=== PATIENT | male | born 1955 | race Caucasian/White ===

== ENCOUNTER 2023-04-16 11:39 | Outpatient (OUT) | payer MEDICARE, SELFPAY ==
--- NOTE | 2023-04-16 11:50 | XR_ITS ---
[address] [address] Patient Name: GEGE SEYMOUR MRN: [id number] date: 1955 Sex: M Assigned Patient Location: [facility] Current Patient Location: [facility] Accession/Order Number: [id number] Exam Date: 04/16/2023 11:53 Report Date: 04/16/2023 12:51 At the request of: LEANNA CAMPO Procedure: XR lumbar spine 2-3V EXAM: XR lumbar spine 2-3V HISTORY: Lumbar Spondylosis M47.816 COMPARISON: None. TECHNIQUE: 3 views FINDINGS: Satisfactory alignment. Maintained vertebral body heights and disc spaces. Mild multilevel endplate degenerative changes, disc disease and facet arthropathy of L4-S1. Scattered calcified atherosclerotic disease of aorta. XR/XR lumbar spine 2-3V IMPRESSION: No acute fracture or subluxation. Electronically authenticated by: JAIR SERRATO Date: 04/16/2023 12:51
== END 2023-04-16 11:40 | disposition home or self-care (01) ==
LOC: RAD 11:43
PROVIDERS: PCP Family Medicine; Visit Provider Family Medicine
DX: M47.816 Spondylosis without myelopathy or radiculopathy, lumbar region (principal)
CPT/HCPCS: 72100

== ENCOUNTER 2023-04-18 08:05 | Outpatient (RCR) | payer MEDICARE, SELFPAY | END 2023-05-09 16:02 | disposition home or self-care (01) | LOC: PT 08:05 | PROVIDERS: PCP Family Medicine; Visit Provider Family Medicine | DX: M47.816 Spondylosis without myelopathy or radiculopathy, lumbar region (principal) | CPT/HCPCS: 97110; 97112; 97140; 97162 ==

== ENCOUNTER 2023-04-23 07:52 | Outpatient (OUT) | payer MEDICARE, SELFPAY ==
[2023-04-23 08:29] LABS: Basophils Absolute Auto 0.1 10^3/uL (0.0-0.1); Basophils Percent Auto 1.2 % (0.2-2.0); Eosinophils Absolute Auto 0.3 10^3/uL (0.0-0.7); Eosinophils Percent Auto 4.1 % (0.9-7.0); Hematocrit 43.3 % (42.0-54.0); Hemoglobin 14.7 g/dL (14.0-18.0); Immature Granulocytes Abs Auto 0.03 10^3/uL (0.00-0.03); Immature Granulocytes Pct Auto 0.4 % (0.0-0.5); Lymphocytes Absolute Auto 1.4 10^3/uL (1.2-3.8); Lymphocytes Percent Auto 17.3 % (20.5-60.0); Mean Corpuscular HGB Conc 33.9 g/dL (29.9-35.2); Mean Corpuscular Hemoglobin 30.7 pg (25.9-34.0); Mean Corpuscular Volume 90.4 fL (80.0-94.0); Mean Platelet Volume 9.6 fL (9.5-13.5); Monocytes Absolute Auto 0.6 10^3/uL (0.3-0.8); Monocytes Percent Auto 7.3 % (1.7-12.0); Neutrophils Absolute Auto 5.8 10^3/uL (1.4-6.5); Neutrophils Percent Auto 69.7 % (43.0-75.0); Platelet Count 146 10^3/uL (150-450); Red Blood Count 4.79 10^6/uL (4.70-6.10); Red Cell Distribution Width 13.1 % (11.0-15.0); White Blood Count 8.3 10^3/uL (4.0-11.0)
[2023-04-23 09:07] LABS: Alanine Aminotransferase 36 U/L (16-63); Albumin Globulin Ratio 1.1; Albumin Level 3.9 g/dL (3.4-5.0); Alkaline Phosphatase 91 U/L (46-116); Anion Gap 16.6; Aspartate Amino Transferase 26 U/L (15-37); BUN Creatinine Ratio 32.2; Bilirubin Direct 0.1 mg/dL (0.0-0.2); Bilirubin Total 0.6 mg/dL (0.2-1.0); Carbon Dioxide 24.2 mmol/L (21.0-32.0); Chloride 98 mmol/L (98-107); Chol HDL Ratio 4.7; Cholesterol 173 mg/dL (<=200); Estimated GFR (African America 56 (>=60); Estimated GFR (Non-African Ame 46 (>=60); Globulin 3.6 g/dL; Glucose 220 mg/dL (74-106); HDL Cholesterol 37 mg/dL (40-60); Potassium 4.8 mmol/L (3.5-5.1); Sodium 134 mmol/L (136-145); Total Protein 7.5 g/dL (6.4-8.2); Triglycerides 243 mg/dL (<=150); VLDL CHOLESTEROL 48.6 mg/dL
[2023-04-24 05:09] LABS: HBsAg Screen Negative (Negative); HCV Antibody Non Reactive (Non Reactive); HIV Ab/p24 Ag Screen Non Reactive (Non Reactive)
[2023-04-24 12:08] LABS: Rapid Plasma Reagin, Quant Non Reactive titer (NonRea<1:1)
[2023-04-25 09:09] LABS: QuantiFERON-TB Gold Plus Negative (Negative)
== END 2023-04-23 07:53 | disposition home or self-care (01) ==
PROVIDERS: PCP Family Medicine; Visit Provider Dermatology
DX: L30.9 Dermatitis, unspecified (principal)
CPT/HCPCS: 36415; 80048; 80061; 80076; 85025; 86480; 86592; 86780; 86803; 87340; 87389

== ENCOUNTER 2023-07-10 14:09 | Outpatient (OUT) | payer MEDICARE, SELFPAY ==
--- OUTSIDE RECORDS SUMMARY | 2023-07-10 14:15 | XMS_ITS | CCD ---
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 Name Role Phone DANK CAMPO Primary Care Physician MD Dank Campo Primary Care Provider MD Kike Bernal Attending Provider Asaad, Imad Unavailable FERNANDO ., MR FERNANDEZ Admitting Unavailable NADEREGraciela, DR DANK Leon Primary Care Unavailable FERNANDO ., MR REBECCA Attending Unavailable FERNANDO ., MR REBECCA Consulting Unavailable NICOLA ., DR WINKLER Consulting Unavailable NICOLA ., DR WINKLER Admitting Unavailable NADERER, DR DANK Leon Primary Care Unavailable HULL ., DR WINKLER Attending Unavailable NADERER, DR DANK Leon Primary Care Unavailable ASAAD, IMAD Admitting Unavailable ASAAD, IMAD Attending Unavailable ASAAD, IMAD Consulting Unavailable NADERER, DR DANK Leon Primary Care Unavailable NADERER, DR DANK Leon Admitting Unavailable NADERER, DR DANK Leon Attending Unavailable NADERER, DR DANK Leon Consulting Unavailable ASAAD, IMAD Admitting Unavailable NADERER, DR DANK Leon Primary Care Unavailable ASAAD, IMAD Attending Unavailable ASAAD, IMAD Consulting Unavailable NADERER, DR DANK Leon Primary Care Unavailable NADERER, DR DANK Leon Admitting Unavailable NADERER, DR DANK Leon Attending Unavailable NADERER, DR DANK Leon Admitting Unavailable NADERER, DR DANK Leon Attending Unavailable NADERER, DR DANK Leon Consulting Unavailable NADERER, DR DANK Leon Primary Care Unavailable [place], DR SORIN Rodarte Consulting Unavailable NADERER, DR DANK Leon Admitting Unavailable NADERER, DR DANK Leon Attending Unavailable NADERER, DR DANK Leon Primary Care Unavailable NADERER, DR DANK Leon Consulting Unavailable Mikie HULL Attending Unavailable ROSALVA MURO Attending Unavailable ROSALVA MURO Attending Unavailable DEJUAN HULL Attending Unavailable ROSALVA MURO Admitting Unavailable ROSALVA MURO Attending Unavailable ROSALVA MURO Admitting Unavailable ROSALVA MURO Attending Unavailable Mikie HULL Attending Unavailable MD Dank Campo Primary Care Provider MD Kike Bernal Attending Provider DEXTER NI Attending Unavailable MAGDA ROSS Attending Unavailable DEXTER NI Attending Unavailable EDD HOLDEN Attending Unavailable EDD HOLDEN Attending Unavailable EDD HOLDEN Referring Unavailable DANK CAMPO Attending Unavailable Dank Campo Primary Care Unavailable Asaad, Imad Admitting Unavailable Asaad, Kike Attending Unavailable Dank Campo Primary Care Unavailable Asaad, Imad Admitting Unavailable Asaad, Kike Attending Unavailable Dank Campo Primary Care Unavailable Dank Campo Attending Unavailable Dank Campo Admitting Unavailable MD Dank Campo Attending Provider Allergies Allergy Classification Reported Allergen(s) Allergy Type Date of Onset Reaction(s) Facility (1 source) No Known Medication Allergies; 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: [No Known Medication Allergies] Propensity to adverse reactions (disorder) [facility] Repository Medications Current Medications Medication Drug Class(es) Dates Sig (Normalized) Sig (Original) aspirin 81 mg delayed release oral tablet (7 sources) Platelet Aggregation Inhibitor, Nonsteroidal Anti-inflammatory Drug Start: 01-30-2019 take 1 tablet by mouth once daily Aspirin (Aspir-81) 81 mg Tablet,Delayed Release (Dr/Ec) Active 81 MG PO Daily January 29, 2019 11:00pm Baclofen (12 sources) gamma-Aminobutyric Acid-ergic Agonist Start: 03-31-2019 baclofen Oral, TID, Refills(s) 0 Start Date: 03/31/19 Status: Ordered Start: 01-30-2019 take 20 mg by mouth three times daily Baclofen Active 20 MG PO Three times daily January 29, 2019 11:00pm celecoxib (12 sources) Nonsteroidal Anti-inflammatory Drug Start: 03-31-2019 celecoxib Oral, Refills(s) 0 Start Date: 03/31/19 Status: Ordered Start: 01-30-2019 take 200 mg by mouth twice miguel ly Celecoxib Active 200 MG PO Twice daily January 29, 2019 11:00pm fluticasone 0.05 mg/inh Nasal [place] (3 sources) Start: 07-28-2019 fluticasone 0. 05 mg/inh Nasal [place] Nasal, Daily, Refill(s) 0 Start Date: 07/28/19 Status: Ordered furosemide 40 mg oral tablet (3 sources) Loop Diuretic Start: 04-27-2023 take 40 mg by mouth once daily Furosemide Active 40 MG PO Daily April 27, 2023 12:00am Furosemide Activ e 3 ml insulin glargine 100 unt/ml pen injector (2 sources) Insulin Analog Start: 04-27-2023 Insulin Glargi ne (Lantus Solostar U-100 Insulin) 100 unit/mL (3 mL) Insulin Pen Active 60 UNIT SUBCUT Every evening April 27, 2023 12:00am Insulin Lispro (3 sources) Insulin Analog Start: 04-27-2023 inject 1 dose by subcutaneous injection once before mealtime Insulin Lispro Active 1 sliding scale dose SUBCUT 3x/Day before meals April 27, 2023 12:00am HumaLOG Active Insulin Lispro KwikPen 100 units/mL injectable solution (1 source) Start: 02-12-2023 Insulin Lispro KwikPen 100 units/mL injectable solution Refills(s) 0 Start Date: 02/12/23 Status: Ordered lansoprazole (12 sources) Proton Pump Inhibitor Start: 03-31-2019 lansoprazole Oral, Daily, Refills(s) 0 Start Date: 03/31/19 Status: Ordered Start: 01-30-2019 take 30 mg by mouth twice daily Lansoprazole Active 30 MG PO Twice daily January 29, 2019 11:00pm Start: 01-30-2019 take 30 mg by mouth once daily Lansoprazole Active 30 MG PO Daily January 29, 2019 11:00pm Lisinopril (12 sources) Angiotensin Converting Enzyme Inhibitor Start: 03-31-2019 lisinopril Oral, Miguel ly, Refills(s) 0 Start Date: 03/31/19 Status: Ordered Start: 01-30-2019 take 10 mg by mouth once daily Lisinopril Active 10 MG PO Daily January 29, 2019 11:00pm take 1 tablet by maciej th every twelve hours Lisinopril 10 MG 1 tablet Orally BID for 30 day(s) Active loperamide hydrochloride 2 mg oral capsule (7 sources) Opioid Agonist Start: 04-27-2023 take 2 mg by mouth every two hours Loperamide Active 2 MG PO Q2H April 27, 2023 12:00am Start: 12-10-2019 take 1 capsule by mo uth twice daily Loperamide HCl 2 MG 1 CAPSULE Orally twice daily for 30 days Nov, Active Magnesium (3 sources) Start: 01-30-2019 take 400 mg by mouth once daily Magnesium Active 400 MG PO Daily January 29, 2019 11:00pm metFORMIN (11 sources) Biguanide Start: 03-31-2019 metformin Oral , Refills(s) 0 Start Date: 03/31/19 Status: Ordered Start: 01-30-2019 End: 04-27-2023 take 850 mg by mouth three times daily Metformin Discontinued 850 MG PO Three times daily January 29, 2019 11:00pm April 27, 2023 10:34am 24 hr metoprolol succinate 25 mg extended release oral tablet (12 sources) beta-Adrenergic Nirav Start: 03-31-2019 take 1 mg by mouth once daily metoprolol 25 mg ER Tab mg tab(s), Oral, Daily, Refills(s) 0 Start Date: 03/31/19 Status: Ordered Start: 01-30-2019 take 50 mg by mouth once daily Metoprolol Succinate Active 50 MG PO Daily January 29, 2019 11:00pm take 1 tablet by maciej every twenty-four hours Metoprolol Succinate ER 50 MG 1 tablet Orally Once a day Active oxaprozin 600 mg oral tablet (2 sources) Nonsteroidal Anti-inflammatory Drug Start: 04-27-2023 take 600 mg by mouth four times daily Oxaprozin Active 600 MG PO Four times daily April 27, 2023 12:00am potassium chloride 20 meq oral tablet (1 source) Start: 02-12-2023 Potassium Chloride (Eqv-K-Tab) 20 mEq oral tablet, extended release Refills(s) 0 Start Date: 02/12/23 Status: Ordered semaglutide 14 mg oral tablet (3 sources) Start: 07-24-2022 take 1 tablet by mouth once daily Semaglutide (Rybelsus) 14 mg tablet Active 14 MG PO Daily July 24, 2022 12:00am Simvastatin (12 sources) HMG-CoA Reductase Inhibitor Start: 03-31-2019 simvastatin Oral, Refills(s) 0 Start Date: 03/31/19 Status: Ordered Start: 01-30-2019 take 40 mg by mouth once daily in the evening Simvastatin Active 40 MG PO Every evening January 29, 2019 11:00pm spironolactone 50 mg oral tablet (2 sources) Aldosterone Antagonist Start: 04-27-2023 take 50 mg by mouth once daily Spironolactone Active 50 MG PO Daily April 27, 2023 12:00am Completed/Discontinued Medications Medication Drug Class(es) Dates Sig (Normalized) Sig (Original) clindamycin 300 mg oral capsule (5 sources) Lincosamide Antibacterial Start: 01-28-2021 take 2 capsules by mouth every twelve hours Clindamycin HCl 300 MG 2 capsules Orally bid for 10 day(s) Jan, Not-Taking dibucaine 0.01 mg/mg rectal ointment (3 sources) Standardized Chemical Allergen Start: 12-08-2020 End: 03-14-2021 Dibucaine Discontinued 1 APPLIC OR Four times daily 56 December 07, 2020 11:00pm March 14, 2021 11:08am dicyclomine hydrochloride 20 mg oral tablet (3 sources) Anticholinergic Start: 02-11-2020 End: 12-08-2020 take 20 mg by mouth three times daily Dicyclomine Discontinued 20 MG PO Three times daily February 10, 2020 11:00pm December 08, 2020 8:09am docusate sodium 100 mg oral capsule (3 sources) Start: 12-08-2020 End: 03-14-2021 take 1 capsule by mouth once daily Docusate Sodium (Sof-Lax) 100 mg capsule Discontinued 100 MG PO Daily 60 December 08, 2020 9:33am March 14, 2021 11:08am fluticasone propionate 0.05 mg/actuat metered dose nasal spray (9 sources) Corticosteroid Start: 02-11-2020 End: 07-24-2022 Fluticasone Propionate (Flonase Allergy Relief) 50 mcg/actuation [place],Suspension Discontinued 1 SPRAY INTRANASAL Daily February 10, 2020 11:00pm July 24, 2022 12:24pm Start: 07-28-2019 fluticasone 0. 05 mg/inh Nasal [place] Nasal, Daily, Refill(s) 0 Start Date: 07/28/19 Status: Ordered take 1 spray(s) nasa l route once daily Flonase 50 MCG/ACT 1 spray in each nostril Nasally Once a day Not-Taking glipiZIDE 10 mg oral tablet (3 sources) Sulfonylurea Start: 01-30-2019 End: 08-18-2020 take 10 mg by mouth once daily Glipizide Discontinued 10 MG PO Daily January 29, 2019 11:00pm August 18, 2020 11:28am loratadine 10 mg oral tablet (3 sources) Start: 12-08-2020 End: 03-14-2021 take 1 tablet by mouth once daily Loratadine (Claritin) 10 mg Tablet Discontinued 10 MG PO Daily December 07, 2020 11:00pm March 14, 2021 11:08am mupirocin 0.02 mg/mg topical ointment (5 sources) RNA Synthetase Inhibitor Antibacterial Mupirocin 2 % 1 application Externally bid for 10 day(s) Not-Taking pantoprazole 40 mg delayed release oral tablet (5 sources) Proton Pump Inhibitor Start: 07-24-2022 take 1 tablet by mouth every twenty-four hours Pantoprazole Sodium 40 MG 1 tablet Orally Once a day for 90 days Jul, Not-Taking pramoxine (5 sources) Start: 07-20-2022 Pramoxine HCl 1 % 1 application to affected area as needed Externally Three times a day for 30 days Jul, Not-Taking Start: 07-20-2022 Pramoxine HCl 1 % 1 application to affected area as needed Externally Three times a day for 30 days Jul, Active pyridostigmine bromide 60 mg oral tablet (3 sources) Start: 01-30-2019 End: 08-18-2020 take 60 mg by mouth three times daily Pyridostigmine [place] Discontinued 60 MG PO Three times daily January 29, 2019 11:00pm August 18, 2020 11:30am sucralfate 1000 mg oral tablet (3 sources) Aluminum Complex Start: 02-11-2020 End: 03-14-2021 take 1 g by mouth before mealtime Sucralfate Discontinued 1 GM PO before meals February 10, 2020 11:00pm March 14, 2021 11:09am tamsulosin hydrochloride 0.4 mg oral capsule (3 sources) alpha-Adrenerg ic Nirav Start: 01-30-2019 End: 03-14-2021 take 0.4 mg by mouth once daily Tamsulosin Discontinued 0.4 MG PO Daily January 29, 2019 11:00pm March 14, 2021 11:09am Problems Active Problems Problem Classification Problem Date Documented Date Episodic/Chronic Biliary tract disease (3 sources) Common bile duct calculus; 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: [Calculus of bile duct without cholangitis or cholecystitis without obstruction] 04-04-2021 Episodic Cancer of prostate (12 sources) Malignant neoplasm of prostate; 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: [Malignant tumor of prostate] Onset: 02-04-20 Chronic Deficiency and other anemia (4 sources) Anemia 01-19-2019 Episodic Deficiency and other anemia (8 sources) Iron deficiency anemia; 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: [Iron deficiency anemia, unspecified] 02-11-2020 Episodic Diabetes mellitus with complications (4 sources) Type 2 diabetes mellitus with hyperglycemia; 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: [TYPE 2 DM W/HYPERGLYCEMIA] Onset: 09-13-19 Chronic Diabetes mellitus without complication (18 sources) Diabetes mellitus; 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: [Type 2 diabetes mellitus without complication] Onset: 10-18-1901-19-2019 Chronic Diabetes mellitus without complication (2 sources) Glycosuria; 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: [Glycosuria] Onset: 02-13-20 Episodic Disorders of lipid metabolism (4 sources) Hypercholesterolemia 01-19-2019 Chronic Esophageal disorders (20 sources) Gastroesophageal reflux disease; 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: [Gastro-esophageal reflux disease without esophagitis] Onset: 09-14-1901-30-2019 Chronic Essential hypertension (4 sources) Hypertensive disorder 01-19-2019 Chronic Gastrointestinal hemorrhage (1 source) Melena; 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: [Melena] Onset: 04-27-20 Episodic Genitourinary symptoms and ill-defined conditions (11 sources) Nocturia; 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: [Proteinuria] 03-31-2019 Episodic Headache; including migraine (4 sources) Migraine 01-19-2019 Chronic Hemorrhoids (7 sources) Hemorrhoids; 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: [Unspecified hemorrhoids] Episodic Hyperplasia of prostate (6 sources) Benign prostatic hypertrophy with outflow obstruction; 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: [Benign prostatic hyperplasia with lower urinary tract symptoms] Onset: 02-04-20 Chronic Other aftercare (1 source) 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; 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: [OTH INTERMEDIATE CURRENT DRUG THERAPY] Onset: 09-14-19 Episodic Other and unspecified benign neoplasm (5 sources) History of polyp of colon; 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: [Personal history of colonic polyps] Episodic Other diseases of kidney and ureters (1 source) Urinary tract obstruction; 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: [Other obstructive and reflux uropathy] Onset: 02-04-20 Episodic Other gastrointestinal disorders (5 sources) Irritable bowel syndrome with diarrhea; 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: [Irritable bowel syndrome with diarrhea] Chronic Other gastrointestinal disorders (3 sources) Acquired arteriovenous malformation; 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: [Angiodysplasia of colon with hemorrhage] 09-02-2020 Episodic Other gastrointestinal disorders (8 sources) Dysphagia; 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: [Dysphagia, unspecified] 01-30-2019 Episodic Other gastrointestinal disorders (8 sources) Diarrhea; 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: [Diarrhea, unspecified] 01-30-2019 Episodic Other gastrointestinal disorders (5 sources) Esophageal dysphagia; 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: [Dysphagia, unspecified] Episodic Other gastrointestinal disorders (5 sources) Diarrhea, unspecified; 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: [DIARRHEA UNSPECIFIED] Onset: 09-15-19 Episodic Other gastrointestinal disorders (1 source) Other specified symptoms and signs involving the digestive system and abdomen Episodic Other nutritional; endocrine; and metabolic disorders (10 sources) Body mass index 30+ - obesity; 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: [Body mass index (BMI) 31.0-31.9, adult] Chronic Other screening for suspected conditions (not mental disorders or infectious disease) (8 sources) Raised prostate specific antigen; 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: [Elevated prostate specific antigen [PSA]] Onset: 01-28-2008-05-2021 Episodic Substance-related disorders (4 sources) Cigarette smoker 10-06-2019 Chronic Past or Other Problems Problem Classification Problem Date Documented Da te Episodic/Chronic Other connective tissue disease (4 sources) Pain in right foot; 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: [PAIN IN RIGHT FOOT] Onset: 04-14-2022 Episodic Other gastrointestinal disorders (2 sources) Dysphagia, unspecified; 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: [Dysphagia, unspecified] Onset: 07-24-2022 Episodic Results Test Name Value Interpretation Reference Range Facility Glucose Glucometer (BldC) [M ass/Vol]Ordered By: Kike Bernal on 04-27-2023 Glucose [Mass/Vol] 189 mg/dL [facility] Comment on above: Random Glucose Refer ence Range is dependent on time and content of last meal. Glucose of more than 200 mg/dL in a nonstressed, ambulatory subject supports the diagnosis of Diabetes Mellitus. Glucose Poct Glucometerson 1 06-27-2022 Commemt1 Glu2: Cleaned Meter Normal [facility] Comment on above: Result Comment: PERF ORMED BY: [facility] [place] [id number] PATHOLOGIST BIAS CUTTING MACHINE OPERATOR JEANNINE VAZQUEZ M.D. Performed By: #### G LUCI #### Point of Care testing , Glucose [Mass/Vol] 189 mg/dL Normal [facility] Comment on above: Result Comment: [facility] Glucose Reference Range is dependent on time and content of last meal. Glucose of more than 200 mg/dL in a nonstressed, ambulatory subject supports the diagnosis of Diabetes Mellitus. Performed By: #### G LUCI #### Point of Care testing , William 04-27-2023 L ------ Specimen: [id number] Received: 04/27/23 Status: MASSIEL Junior Num: [id number] Spec Type: Surgical Subm Dr: Kike Bernal MD Tissues: A Colon Biopsy (RANDOM COLON) Procedures: HE/2, Gross/Micro L4 Age/ Patient Sex Location Account Attending Physician Gege Sneed 67/M [id number] Kike Bernal MD SPEC NUM: [id number] RECD: 04/27/23 STATUS: MASSIEL PACHECO NUM: [id number] KURT: 04/27/23 DR: Kike Bernal MD ENTERED: 04/27/23 [facility] DR: VERA TYPE: Surgical DEPT: S ORDERED: HE/2, Gross/Micro L4 ORDERED: HE/2, Gross/Micro L4 Pathological Diagnosis Colon, random biopsy: - Colonic mucosa within normal limits - No evidence of microscopic colitis identified Clinical Information Constipation, diarrhea, blood in stool, rule out microscopic colitis Gross Description Received in formalin labeled with the patient's name, date of and random colon are two zelaya tissues measuring 0.3 x 0.2 x 0.1 cm and 0.4 x 0.2 x 0.1 cm. Entirely submitted in one cassette labeled A1. Microscopic Description Two H E slides reviewed. The microscopic examination confirms the diagnosis. CPT Codes 81051 Specimen: [id number] Received: 04/27/23 Status: MASSIEL Pacheco Num: [id number] Spec Type: Surgical Subm Dr: Kike Bernal MD Tissues: A Colon Biopsy (RANDOM COLON) Procedures: HE/2, Gross/Micro L4 Patient: Gege Sneed [id number] (Continued) Signed (signature on file) Kaushal Magana MD 04/30/23 1325 Normal [facility] No Panel InformationOrdered By: Kike Bernal on 04-27-2023 Bedside Glucose Comment Glu2: cleaned meter [facility] Patient Educationon 02-13-20 Patient Education Oncology Prostate Cancer The prostate is a small gland that produces fluid that makes up semen (seminal fluid). It is located below the bladder in men, in front of the rectum. Prostate cancer is the abnormal growth of cells in the prostate gland. What are the causes? The exact cause of this condition is not known. What increases the risk? You are more likely to develop this condition if: ? You are 65 years of age or older. ? You have a family history of prostate cancer. ? You have a family history of breast and ovarian cancer. ? You have genes that are passed from parent to child (inherited), such as BRCA1 and BRCA2. ? You have Balderrama syndrome. men and men of descent are diagnosed with prostate cancer at higher rates than other men. The reasons for this are not well understood and are likely due to a combination of genetic and environmental factors. What are the signs or symptoms? Symptoms of this condition include: ? Problems with urination. This may include: ? A weak or interrupted flow of urine. ? Trouble starting or stopping urination. ? Trouble emptying the bladder all the way. ? The need to urinate more often, especially at night. ? Blood in urine or semen. ? Persistent pain or discomfort in the lower back, lower abdomen, or hips. ? Trouble getting an erection. ? Weakness or numbness in the legs or feet. How is this diagnosed? This condition can be diagnosed with: ? A digital rectal exam. For this exam, a health care provider inserts a gloved finger into the rectum to feel the prostate gland. ? A blood test called a prostate-specific antigen (PSA) test. ? A procedure in which a sample of tissue is taken from the prostate and checked under a microscope (prostate biopsy). ? An imaging test called transrectal ultrasonography. Once the condition is diagnosed, tests will be done to determine how far the cancer has spread. This is called staging the cancer. Staging may involve imaging tests, such as a bone scan, CT scan, PET scan, or MRI. Stages of prostate cancer The stages of prostate cancer are as follows: ? Stage 1 (I). At this stage, the cancer is found in the prostate only. The cancer is not visible on imaging tests, and it is usually found by accident, such as during prostate surgery. ? Stage 2 (II). At this stage, the cancer is more advanced than it is in stage 1, but the cancer has not spread outside the prostate. ? Stage 3 (III). At this stage, the cancer has spread beyond the outer layer of the prostate to nearby tissues. The cancer may be found in the seminal vesicles, which are near the bladder and the prostate. ? Stage 4 (IV). At this stage, the cancer has spread to other parts of the body, such as the lymph nodes, bones, bladder, rectum, liver, or lungs. Prostate cancer grading Prostate cancer is also graded according to how the cancer cells look under a microscope. This is called the Rosalina score and the total score can range from 6?10, indicating how likely it is that the cancer will spread (metastasize) to other parts of the body. The higher the score, the greater the likelihood that the cancer will spread. ? [place] 6 or lower: This indicates that the cancer cells look similar to normal prostate cells (well differentiated). ? [place] 7: This indicates that the cancer cells look somewhat similar to normal prostate cells (moderately differentiated). ? [place] 8, 9, or 10: This indicates that the cancer cells look very different than normal prostate cells (poorly differentiated). How is this treated? Treatment for this condition depends on several factors, including the stage of the cancer, your age, personal preferences, and your overall health. Talk with your health care provider about treatment options that are recommended for you. Common treatments include: ? Observation for early stage prostate cancer (active surveillance). This involves having exams, blood tests, and in some cases, more biopsies. For some men, this is the only treatment needed. ? Surgery. Types of surgeries include: ? Open surgery (radical prostatectomy). In this surgery, a larger incision is made to remove the prostate. ? A laparoscopic radical prostatectomy. This is a surgery to remove the prostate and lymph nodes through several small incisions. It is often referred to as a minimally invasive surgery. ? A robotic radical prostatectomy. This is laparoscopic surgery to remove the prostate and lymph nodes with the help of robotic arms that are controlled by the surgeon. ? Cryoablation. This is surgery to freeze and destroy cancer cells. ? Radiation treatment. Types of radiation treatment include: ? External beam radiation. This type aims beams of radiation from outside the body at the prostate to destroy cancerous cells. ? Brachytherapy. This type uses radioactive needles, seeds, wires, or tubes that are implanted into the prostate gland. Like external be (more content not included)... Normal [facility] Reminderson 02-12-2023 Reminders - From: Johana Reeves To: EU - Recalls Hull; Sent: 02/12/2023 17:56:32 EDT Show up: 01/13/2024 17:56:00 EDT Subject: PSA prior to appt Reminder Message Please Remember to:_have pt get PSA done prior to appt in 1 year. Normal [facility] Urology Office/Clinic Noteon 02-12-2023 Urology Office/Clinic Note Chief Complaint 1yr PSA HPI Staff 1yr PSA DX: Prostate Cancer & BPH *S/P ERBT 01/16/20 PSA 02/06/23- 0.4 Denies all urinary complaints. No concerns at this time. History of Present Illness Tests reviewed: reviewed UA, PSA I have reviewed the previous health record information and history for this patient from Dr. Hull. I have reviewed and verified the staff HPI to be accurate for this encounter. There have been no associated fever, chills, flank pain, or blood in the urine. Denies any urinary infections since last encounter. Review of Systems PHQ Score Initial Depression Screen Score: 0 ROS - Provider Constitutional: denies weight loss, denies hot flashes. Eyes: denies eye problems. Gastrointestinal: denies nausea, denies vomiting. Cardiovascular: denies chest pain or angina. Integumentary: no dryness Musculoskeletal: denies musculoskeletal symptoms. ENMT: denies otolaryngeal symptoms. Respiratory: no shortness of breath. Heme/Lymph: denies easy bleeding tendency, denies easy bruising tendency. Psychiatric: no confusion, no anxiety. Genitourinary: See HPI. Physical Exam Vitals & Measurements HR: 68(Peripheral) RR: 16 BP: 138/90 HT: 70 in HT: 177 cm WT: 112 kg WT: 246.4 lb BMI: 35.75 General Appearance: alert, no distress, well nourished, well developed male. Genitourinary: normal scrotum, normal testes, normal urethra, normal epididymis, normal vas deferens/spermatic cord. Flank Pain: none. Bladder: nonpalpable. Assessment/Plan 1. Prostate cancer (C61: Malignant neoplasm of prostate) Dx 08/2018 G6 (3+3) x2 and one suspicious. Most recent Bx done 09/23/19 shows G6 (3+3) x3, 26% involved with JOSE and HGPIN x1. [1] Genetic testing 10/07/19 - favorable intermediate DSM risk. S/p EBRT 01/16/20 PSA 08/04/21- 0.26 01/27/22- 0.1 & 30% 11/28/22 - 0.5 02/06/23 - 0.4 Follow up with PSA in 1 yr or sooner if needed. All questions/concerns were discussed. Pt to call the office if he encounters any issues prior. Pt acknowledges understanding. 2. Enlarged prostate with urinary obstruction (N40.1: Benign prostatic hyperplasia with lower urinary tract symptoms) Pt is not currently taking any prostate medication. Pt states he voids every 2-3hrs throughout the day. Nocturia 1x/night. UA today negative for blood and infection. 3. Glucosuria (R81: Glycosuria) UA today shows >=1000 mg/dL. Pt is diabetic. Pt states he did not take is Jardiance this morning. Follow-up With When Contact Information NICOLA RAYMUNDO, Mikie Owens, [facility] [address], [place] [address] [phone] Additional Instructions: 1 yr w/ PSA Patient Education Prostate Cancer I, Johaan Reeves, personally scribed for Dr. Hull on 02/12/2023 10:14:09. . Documentation recorded by the scribe, Johana Reeves, accurately reflects the services(s) I performed and decisions made by me. Authenticated by Dr. Hull on 02/12/2023 10:15:03. Problem List/Past Medical History Ongoing Anemia Cigarette smoker Diabetes Enlarged prostate with urinary obstruction Frequency of urination Glucosuria Hypercholesteremia Hypertension Migraine headache Nocturia Prostate cancer Proteinuria Historical Elevated PSA Procedure/Surgical History Laparoscopic cholecystectomy (03/2021), Radiation (01/16/2020), Transrectal biopsy of prostate using ultrasound (US) guidance (09/23/2019), Transrectal biopsy of prostate using ultrasound (US) guidance (09/03/2018), Appendectomy, Colonoscopy, Tonsillectomy. Medications aspirin 81 mg Oral EC Tab, Oral, Daily baclofen, Oral, TID celecoxib, Oral fluticasone 0.05 mg/inh Nasal [place], Nasal, Daily Insulin Lispro KwikPen 100 units/mL injectable solution lansoprazole, Oral, Daily lisinopril, Oral, Daily metoprolol 25 mg ER Tab, Oral, Daily Potassium Chloride (Eqv-K-Tab) 20 mEq oral tablet, extended release simvastatin, Oral Allergies No Known Medication Allergies Social History Alcohol - Denies Alcohol Use, 03/31/2019 Tobacco Former smoker, quit more than 30 days ago Tobacco Use:., 02/03/2022 Former smoker, quit more than 30 days ago Tobacco Use:. Cigarettes, Yes, 02/03/2022 Family History Diabetes: Mother and Father. Heart disease: Father. Hypertension: Mother and Father. Stroke: Mother and Father. Immunizations Vaccine Date Status SARS-CoV-2 (COVID-19) mRNA BNT-162b2 vax 10/16/2020 Recorded Lab Results Test Name Test Result Date/Time Comments PSA Total 0.4 ng/mL 02/06/2023 13:16 EDT The concentration of PSA determined by different manufacturers can vary due to differences in assay methods and reagent specificity. Values obtained from different assay methods cannot be used interchangeably. The methodology used for this result was chemiluminescence using [employer]'s Access Hybritech PSA reagent. PSA Total 0.5 ng/mL 11/28/2022 11:31 EDT The concentration of P (more content not included)... Normal [facility] Comment on above: Result Comment: Elec tronically Signed By: Mikie HULL MD\.br\Date and Time Signed: 02/12/23 10:15 EDT\.br\Electronically Co-Signed By: Johana Reeves\.br\Date and Time Co-Signed: 02/12/23 10:14 EDT Ambulatory Visit Summaryon 0 02-06-2023 Ambulatory Visit Summary GEGE SNEED :1955 Visit Date:02/06/2023 Ambulatory Visit Instructions Your Diagnosis Prostate cancer Your Care Team Attending Physician - DEJUAN HULL MD Primary Care Physician - DANK CAMPO MD This Is Your Medications List aspirin (aspirin 81 mg Oral EC Tab) baclofen celecoxib fluticasone nasal (fluticasone 0.05 mg/inh Nasal [place]) lansoprazole lisinopril metformin metoprolol (metoprolol 25 mg ER Tab) simvastatin Procedures Performed Laparoscopic cholecystectomy (03/2021), Radiation (01/16/2020), Transrectal biopsy of prostate using ultrasound (US) guidance (09/23/2019), Transrectal biopsy of prostate using ultrasound (US) guidance (09/03/2018), Appendectomy, Colonoscopy, Tonsillectomy. What to do next Scheduled Follow-Up Appointments Sunday 9:15 AM EDT With: NICOLA RAYMUNDO, Mikie Owens Where: [facility] Normal [facility] CHEMISTRYOrdered By: SYSTEM SYSTEM on 02-06-2023 Prostate specific Ag [Mass/Vol] 0.4 ng/mL Normal 0.1 - 3.5 ng/mL [facility] [place] Remisol PSA Totalon 02-06-2023 Prostate specific Ag [Mass/Vol] 0.4 ng/mL Normal 0.1-3.5 [facility] Comment on above: Result Comment: The concentration of PSA determined by different manufacturers can vary due to differences in assay methods and reagent specificity. Values obtained from different assay methods cannot be used interchangeably. The methodology used for this result was chemiluminescence using [employer]'s Access Hybritech PSA reagent. Performed By: #### 1 [id number] #### [facility] [address] [place] [address] PSA Totalon 11-28-2022 Prostate specific Ag [Mass/Vol] 0.5 ng/mL Normal 0.1-3.5 [facility] Comment on above: Result Comment: The concentration of PSA determined by different manufacturers can vary due to differences in assay methods and reagent specificity. Values obtained from different assay methods cannot be used interchangeably. The methodology used for this result was chemiluminescence using [employer] Access Hybritech PSA reagent. Performed By: #### 1 [id number] #### [facility] [address] [place] [address] PANCREATIC ELASTASE FECALon 09-24-2022 Pancreatic Elastase, Fecal 467 ug Elast./g Normal >200 [facility] Comment on above: Result Comment: Nicolle re Pancreatic Insufficiency: <100 Moderate Pancreatic Insufficiency: 100 - 200 Normal: >200 Performed By: #### C PEPT #### [facility] [address] [address] [address] Stewart De La Cruz POTASSIUM, FECALon 3 Potassium, Stool 57 mmol/L Normal [facility] Comment on above: Result Comment: INTE RPRETIVE INFORMATION: Fecal Potassium A reference interval has not been established for fecal specimens. This test was developed and its performance characteristics determined by [facility]. It has not been cleared or approved by the [place] Food and Drug Administration. This test was performed in a CLIA certified laboratory and is intended for clinical purposes. Performed By: #### C PEPT #### [facility] [address] [place] [address] Dr. Stewart De La Cruz SODIUM, FECALon 09-17-2022 Sodium, Stool 65 mmol/L Normal [facility] Comment on above: Result Comment: INTE RPRETIVE INFORMATION: Fecal Sodium A reference interval has not been established for fecal specimens. This test was developed and its performance characteristics determined by [facility]. It has not been cleared or approved by the [place] Food and Drug Administration. This test was performed in a CLIA certified laboratory and is intended for clinical purposes. Performed By: #### F ECALN #### [facility] [address] [place] [address] Dr. Stewart De La Cruz CALPROTECTIN, FECALon 2022 Calprotectin, Fecal 43 ug/g Normal 0-120 [facility] Comment on above: Result Comment: Conc entration Interpretation Follow-Up <16 - 50 ug/g Normal None >50 -120 ug/g Borderline Re-evaluate in 4-6 weeks >120 ug/g Abnormal Repeat as clinically indicated Performed By: #### C PEPT #### [facility] [address] [place] [address] Dr. Stewart De La Cruz C-PEPTIDE, SERUMon 3 C-Peptide, Serum 6.5 ng/mL Critically high 1.1-4.4 [facility] Comment on above: Result Comment: C-Pe ptide reference interval is for fasting patients. Performed By: #### C PEPT #### [facility] [address] [place] [address] Dr. Stewart De La Cruz HIV 1 AND 2 WITH REFLEXon HIV Screen 4th Generation wRfx Non-Reactive Normal Non Reactive [facility] Comment on above: Result Comment: HIV Negative HIV-1/HIV-2 antibodies and HIV-1 p24 antigen were NOT detected. There is no laboratory evidence of HIV infection. Performed By: #### C PEPT #### [facility] [address] [place] [address] Dr. Stewart De La Cruz INSULINon 09-13-2022 Insulin 13.9 uIU/mL Normal 2.6-24.9 [facility] Comment on above: Performed By: #### C PEPT #### [facility] [address] [place] [address] Dr. Stewart De La Cruz POTASSIUM, FECALon Potassium, Stool QNSMT Normal [facility] Comment on above: Result Comment: Test not performed. One specimen was submitted with requests for multiple tests. The requested testing requires a separate specimen for each test requested. contacted Keesha at your facility on 09-13-2022 Performed By: #### C PEPT #### [facility] [address] [place] [address] Dr. Stewart De La Cruz SODIUM, FECALon 09-13-2022 Sodium, Stool QNSMT Normal [facility] Comment on above: Result Comment: Test not performed. One specimen was submitted with requests for multiple tests. The requested testing requires a separate specimen for each test requested. contacted Keesha at your facility on 09-13-2022 Performed By: #### F ECALN #### [facility] [address] [place] [address] Dr. Stewart D eLa Cruz CBC AUTO DIFFon 09-12-2022 BASO # 0.1 103/ul Normal 0.0-0.1 [facility] Comment on above: Performed By: #### C PEPT #### [facility] [address] [place] [address] Dr. Stewart De La Cruz Basophils/100 WBC (Bld) 1.2 % Normal 0.2-2.0 [facility] Comment on above: Performed By: #### C PEPT #### [facility] [address] [place] [address] Dr. Stewart De La Cruz EO # 0.3 103/ul Normal 0.0-0.7 [facility] Comment on above: Performed By: #### C PEPT #### [facility] [address] [place] [address] Dr. Stewart De La Cruz Eosinophils/100 WBC (Bld) 4.5 % Normal 0.9-7.0 [facility] Comment on above: Performed By: #### C PEPT #### [facility] [address] [place] [address] Dr. Stewart De La Cruz Erythrocyte distribution width (RBC) [Ratio] 12.9 % Normal 11.0-15.0 [facility] Comment on above: Performed By: #### C PEPT #### [facility] [address] [place] [address] Dr. Stewart De La Cruz Hematocrit (Bld) [Volume fraction] 44.6 % Normal 42.0-54.0 [facility] Comment on above: Performed By: #### C PEPT #### [facility] [address] [place] [address] Dr. Stewart De La Cruz Hemoglobin (Bld) [Mass/Vol] 14.9 g/dL Normal 14.0-18.0 [facility] Comment on above: Performed By: #### C PEPT #### [facility] [address] [place] [address] Dr. Stewart De La Cruz IG # 0.03 10e3/ul Normal 0.00-0.03 [facility] Comment on above: Performed By: #### C PEPT #### [facility] [address] [place] [address] Dr. Stewart De La Cruz IG % 0.5 % Normal 0.0-0.5 [facility] Comment on above: Performed By: #### C PEPT #### [facility] [address] [place] [address] Dr. Stewart De La Cruz LYMPH # 1.1 103/ul Critically low 1.2-3.8 [facility] Comment on above: Performed By: #### C PEPT #### [facility] [address] [place] [address] Dr. Stewart De La Cruz Lymphocytes/100 WBC (Bld) 18.5 % Critically low 20.5-60.0 [facility] Comment on above: Performed By: #### C PEPT #### [facility] [address] [place] [address] Dr. Stewart De La Cruz MANUAL DIFF REQ NO Normal [facility] Comment on above: Performed By: #### C PEPT #### [facility] [address] [place] [address] Dr. Stewart De La Cruz MCH (RBC) [Entitic mass] 29.2 pg Normal 25.9-34.0 [facility] Comment on above: Performed By: #### C PEPT #### [facility] [address] [place] [address] Dr. Stewart De La Cruz MCHC (RBC) [Mass/Vol] 33.4 g/dL Normal 29.9-35.2 [facility] Comment on above: Performed By: #### C PEPT #### [facility] [address] [place] [address] Dr. Stewart De La Cruz MCV (RBC) [Entitic vol] 87.5 fL Normal 80.0-94.0 [facility] Comment on above: Performed By: #### C PEPT #### [facility] [address] [place] [address] Dr. Stewart De La Cruz MONO # 0.4 103/ul Normal 0.3-0.8 [facility] Comment on above: Performed By: #### C PEPT #### [facility] [address] [place] [address] Dr. Stewart De La Cruz Monocytes/100 WBC (Bld) 6.8 % Normal 1.7-12.0 [facility] Comment on above: Performed By: #### C PEPT #### [facility] [address] [place] [address] Dr. Stewart De La Cruz NEUT # 4.2 103/ul Normal 1.4-6.5 [facility] Comment on above: Performed By: #### C PEPT #### [facility] [address] [place] [address] Dr. Stewart De La Cruz Neutrophils/100 WBC (Bld) 68.5 % Normal 43.0-75.0 [facility] Comment on above: Performed By: #### C PEPT #### [facility] [address] [place] [address] Dr. Stewart De La Cruz Platelet mean volume (Bld) [Entitic vol] 9.8 fL Normal 9.5-13.5 [facility] Comment on above: Performed By: #### C PEPT #### [facility] [address] [place] [address] Dr. Stewart De La Cruz PLT 133 103/ul Critically low 150-450 [facility] Comment on above: Performed By: #### C PEPT #### [facility] [address] [place] [address] Dr. Stewart De La Cruz RBC 5.10 106/ul Normal 4.70-6.10 [facility] Comment on above: Performed By: #### C PEPT #### [facility] [address] [place] [address] Dr. Stewart De La Cruz WBC 6.1 103/ul Normal 4.0-11.0 [facility] Comment on above: Performed By: #### C PEPT #### [facility] [address] [place] [address] Dr. Stewart De La Cruz CRPon 09-12-2022 CRP [Mass/Vol] mg/L Normal <=1.0 [facility] Comment on above: Performed By: #### C RP #### [facility] [address] [place] [address] Dr. Stewart De La Cruz GLYCOHEMOGLOBIN A1Con 2022 ADA RECOMMENDATION SEE BELOW Normal [facility] Comment on above: Result Comment: ADA RECOMMENDED LIMIT 4.0 - 6.0 ADA THERAPEUTIC TARGET < 7.0 ACTION SUGGESTED > 7.0 Performed By: #### A 1C #### [facility] [address] [place] [address] Dr. Stewart De La Cruz Glucose [Mass/Vol] 278 mg/dL Normal [facility] Comment on above: Performed By: #### A 1C #### [facility] [address] [place] [address] Dr. Stewart De La Cruz HbA1c (Bld) [Mass fraction] 11.3 % Critically high 4.5-6.2 [facility] Comment on above: Performed By: #### A 1C #### [facility] [address] [place] [address] Dr. Stewart De La Cruz PROF CHEM 8 (BAS METB)on Anion gap [Moles/Vol] 16.9 mmol/L Normal [facility] Comment on above: Performed By: #### C PEPT #### [facility] [address] [place] [address] Dr. Stewart De La Cruz Calcium [Mass/Vol] 9.3 mg/dL Normal 8.5-10.1 [facility] Comment on above: Performed By: #### C PEPT #### [facility] [address] [address] [address] Stewart De La Cruz Chloride [Moles/Vol] 103 mmol/L Normal 98-107 [facility] Comment on above: Performed By: #### C PEPT #### [facility] [address] [place] [address] Dr. Stewart De La Cruz CO2 [Moles/Vol] 26.0 mmol/L Normal 21.0-32.0 [facility] Comment on above: Performed By: #### C PEPT #### [facility] [address] [place] [address] Dr. Stewart De La Cruz Creatinine [Mass/Vol] 1.43 mg/dL Critically high 0.70-1.30 [facility] Comment on above: Performed By: #### C PEPT #### [facility] [address] [place] [address] Dr. Stewart De La Cruz EGFR-AF MONTENEGRIN 60 mL/min/1.73m2 Normal >=60 [facility] Comment on above: Performed By: #### C PEPT #### [facility] [address] [place] [address] Dr. Stewart De La Cruz EGFR-NON AF MONTENEGRIN 49 mL/min/1.73m2 Critically low >=60 [facility] Comment on above: Performed By: #### C PEPT #### [facility] [address] [place] [address] Dr. Stewart De La Cruz Glucose [Mass/Vol] 293 mg/dL Critically high 74-[address] [facility] Comment on above: Performed By: #### C PEPT #### [facility] [address] [address] [address] Stewart De La Cruz Potassium [Moles/Vol] 4.9 mmol/L Normal 3.5-5.1 [facility] Comment on above: Performed By: #### C PEPT #### [facility] [address] [address] [address] Stewart De La Cruz Sodium [Moles/Vol] 141 mmol/L Normal 136-145 [facility] Comment on above: Performed By: #### C PEPT #### [facility] [address] [address] [address] Stewart De La Cruz Urea nitrogen [Mass/Vol] 32.0 mg/dL Critically high 7.0-18.0 [facility] Comment on above: Performed By: #### C PEPT #### [facility] [address] [address] [address] Stewart De La Cruz Urea nitrogen/Creatinine [Mass ratio] 22.4 mg/mg Normal [facility] Comment on above: Performed By: #### C PEPT #### [facility] [address] [address] [address] Stewart De La Cruz SED RATE [facility] 2022 SED RATE 17 mm/hr Normal <=20 [facility] Comment on above: Performed By: #### S EDR #### [facility] [address] [address] [address] Stewart De La Cruz RAD EGD - documentation only do not orderon 07-25-2022 RAD EGD - documentation only do not order [employer] Other Glucose Glucometer ([facility]) [M ass/Vol]Ordered By: Imad Dolores on 07-24-2022 Glucose [Mass/Vol] 275 mg/dL [facility] Comment on above: Random Glucose Refer ence Range is dependent on time and content of last meal. Glucose of more than 200 mg/dL in a nonstressed, ambulatory subject supports the diagnosis of Diabetes Mellitus. Glucose Poct Glucometerson 0 07-24-2022 Glucose [Mass/Vol] 275 mg/dL Normal [facility] Comment on above: Result Comment: Todd Glucose Reference Range is dependent on time and content of last meal. Glucose of more than 200 mg/dL in a nonstressed, ambulatory subject supports the diagnosis of Diabetes Mellitus. PERFORMED BY: [facility] [place] [id number] PATHOLOGIST BIAS CUTTING MACHINE OPERATOR JEANNINE VAZQUEZ M.D. Performed By: #### G LUCI #### Point of Care testing , William 07-24-2022 L ------ Specimen: [id number] Received: 07/24/22 Status: MSASIEL Pacheco Num: [id number] Spec Type: Surgical Subm Dr: Kike Bernal MD Tissues: A Gastric Biopsy (GASTRIC) B Gastric Polyp (GASTRIC POLYPS) C Esophagus Biopsy (DISTAL ESO) D Esophagus Biopsy (PROX ESO) Procedures: HE/8, Gross/Micro L4/4, H PYLORI Age/ Patient Sex Location Account Attending Physician Gege Sneed/M [id number] Kike Bernal MD SPEC NUM: [id number] RECD: 07/24/22 STATUS: MASSIEL PACHECO NUM: [id number] KURT: 07/24/22- SUBM DR: Kike Bernal MD ENTERED: 07/24/22 [facility] DR: SPEC TYPE: Surgical DEPT: S ENTERED BY: [id number] RECV BY: [id number] ORDERED: HE/8, Gross/Micro L4/4, H PYLORI ORDERED: HE/8, Gross/Micro L4/4, H PYLORI Pathological Diagnosis A. Stomach, gastric, biopsy: - Reactive gastropathy. - Immunohistochemical stain for Helicobacter pylori is negative. B. Stomach, gastric, polypectomy: - Minute specimen on gross comprising of vegetable/fecal matter. - Negative for mucosal tissue on microscopic evaluation. C. Esophagus, distal, biopsy: - Squamous type mucosa, with mild chronic inflammation. - Negative for Carver?s esophagus (H E stain). - Negative for dysplasia. - Negative for eosinophilic esophagitis. D. Esophagus, proximal, biopsy: - Squamous type mucosa, with mild chronic inflammation. - Negative for Carver?s esophagus (H E stain). - Negative for dysplasia. - Negative for eosinophilic esophagitis. Specimen: [id number] Received: 07/24/22 Status: MASSIEL Pacheco Num: [id number] Spec Type: Surgical Subm Dr: Kike Bernal MD Tissues: A Gastric Biopsy (GASTRIC) B Gastric Polyp (GASTRIC POLYPS) C Esophagus Biopsy (DISTAL ESO) D Esophagus Biopsy (PROX ESO) Procedures: HE/8, Gross/Micro L4/4, H PYLORI Patient: Gege Sneed [id number] (Continued) Specimen: [id number] Received: 07/24/22 (Continued) Signed (signature on file) Kenia Adkins MD 07/25/22 1459 Specimen: [id number] Received: 07/24/22 Status: MASSIEL Pacheco Num: [id number] Spec Type: Surgical Subm Dr: Kike Bernal MD Tissues: A Gastric Biopsy (GASTRIC) B Gastric Polyp (GASTRIC POLYPS) C Esophagus Biopsy (DISTAL ESO) D Esophagus Biopsy (PROX ESO) Procedures: , Gross/Micro L4/4, H PYLORI Patient: Gege Sneed [id number] (Continued) Specimen: [id number] Received: 07/24/22 (Continued) Clinical Information GERD, rule out H. pylori, rule out EOE Gross Description A. Received in formalin labeled with the patient's name, number and gastric rule out H. pylori are three fragments of soft zelaya tissue averaging 0.2 cm. Entirely submitted in one cassette labeled A1. B. Received in formalin labeled with the patient's name, number and gastric polyps are three fragments of soft zelaya tissue averaging 0.1 cm. Entirely submitted in one cassette labeled B1. C. Received in formalin labeled with the patient's name, number and distal esophagus biopsy rule out EOE is one fragment of soft zelaya tissue measuring 1.0 x 0.3 x 0.2 cm. Entirely submitted in one cassette labeled C1. D. Received in formalin labeled with the patient's name, number and proximal esophagus rule out EOE is one fragment of soft zelaya tissue measuring 0.6 x 0.3 x 0.1 cm. Entirely submitted in one cassette labeled D1. Microscopic Description A. Two glass slides with H E stained material have been examined. The microscopic findings support the above pathologic diagnosis. B. Two glass slides with H E stained material have been examined. The microscopic findings support the above pathologic diagnosis. C. Two glass slides with H E stained material have been examined. The microscopic findings support the above pathologic diagnosis. D. Two glass slides with H E stained material have been examined. The microscopic findings support the above pathologic diagnosis. ----- (more content not included)... Normal [facility] GLYCOHEMOGLOBIN A1Con 2021 ADA RECOMMENDATION SEE BELOW Normal [facility] Comment on above: Result Comment: ADA RECOMMENDED LIMIT 4.0 - 6.0 ADA THERAPEUTIC TARGET < 7.0 ACTION SUGGESTED > 7.0 Performed By: #### A 1C #### [facility] [address] [address] [address] Stewart De La Cruz Glucose [Mass/Vol] 235 mg/dL Normal [facility] Comment on above: Performed By: #### A 1C #### [facility] [address] [place] [address] Dr. Stewart De La Cruz HbA1c (Bld) [Mass fraction] 9.8 % Critically high 4.5-6.2 [facility] Comment on above: Performed By: #### A 1C #### [facility] [address] [address] [address] Stewart De La Cruz GLYCOHEMOGLOBIN A1Con 2021 ADA RECOMMENDATION SEE BELOW Normal [facility] Comment on above: Result Comment: ADA RECOMMENDED LIMIT 4.0 - 6.0 ADA THERAPEUTIC TARGET < 7.0 ACTION SUGGESTED > 7.0 Performed By: #### A 1C #### [facility] [address] [address] [address] Stewart De La Cruz Glucose [Mass/Vol] 197 mg/dL Normal [facility] Comment on above: Performed By: #### A 1C #### [facility] [address] [address] [address] Stewart De La Cruz HbA1c (Bld) [Mass fraction] 8.5 % Critically high 4.5-6.2 [facility] Comment on above: Performed By: #### A 1C #### [facility] [address] [place] [address] Dr. Stewart De La Cruz PSA, FREE AND TOTAL RATIOon 01-28-2022 % Free PSA 30.0 % Normal [facility] Comment on above: Result Comment: The table below lists the probability of prostate cancer for men with non-suspicious JOANNA results and total PSA between 4 and 10 ng/mL, by patient age (Yamilet et al, TYREL 1998, 279:1542). % Free PSA 50-64 yr 65-75 yr 0.00-10.00% 56% 55% 10.01-15.00% 24% 35% 15.01-20.00% 17% 23% 20.01-25.00% 10% 20% >25.00% 5% 9% Please note: Yamilet et al did not make specific recommendations regarding the use of percent free PSA for any other population of men. Performed By: #### P SAFREE #### [facility] [address] [place] [address] Dr. Stewart De La Cruz Prostate specific Ag [Mass/Vol] 0.1 ng/mL Normal 0.0-4.0 [facility] Comment on above: Result Comment: Nina CARBONEIA methodology. . According to the [employer], Serum PSA should decrease and remain at undetectable levels after radical prostatectomy. The AUA defines biochemical recurrence as an initial PSA value 0.2 ng/mL or greater followed by a subsequent confirmatory PSA value 0.2 ng/mL or greater. Values obtained with different assay methods or kits cannot be used interchangeably. Results cannot be interpreted as absolute evidence of the presence or absence of malignant disease. Performed By: #### P SAFREE #### [facility] [address] [place] [address] Dr. Stewart De La Cruz PSA, Free 0.03 ng/mL Normal N/A [facility] Comment on above: Result Comment: Roch e ECLIA methodology. Performed By: #### P SAFREE #### [facility] [address] [place] [address] Dr. Stewart De La Cruz GLYCOHEMOGLOBIN A1Con 2021 ADA RECOMMENDATION SEE BELOW Normal [facility] Comment on above: Result Comment: ADA RECOMMENDED LIMIT 4.0 - 6.0 ADA THERAPEUTIC TARGET < 7.0 ACTION SUGGESTED > 7.0 Performed By: #### A 1C #### [facility] [address] [place] [address] Dr. Stewart De La Cruz Glucose [Mass/Vol] 192 mg/dL Normal [facility] Comment on above: Performed By: #### A 1C #### [facility] [address] [address] [address] Stewart De La Cruz HbA1c (Bld) [Mass fraction] 8.3 % Critically high 4.5-6.2 [facility] Comment on above: Performed By: #### A 1C #### [facility] [address] [address] [address] Stewart De La Cruz CNOVon 02-01-2021 CNOV Office Visit (RADTSA ) -- LIONGEGE Dalal ([id number]) 1955 M Date Time Provider Department 02/01/21 3:15 PM Fawad BANSAL During your visit today, we recorded the following information about you: Temperature Pulse Respiration Blood pressure 97 degrees 75/minute 16/minute 125/64 Weight 102.5 kg Tila Herrera LPN 02/01/2021 3:08 PM Signed AUA= 2 G Kurt Bansal MD 02/03/2021 9:48 AM Signed Radiation Oncology - Follow Up Note PATIENT NAME: Gege Sneed PATIENT DIAGNOSIS: DIAGNOSIS: Prostate adenocarcinoma, initial PSA 14.65, biopsy [place] score 3 + 3 = 6 (grade group 1), clinical stage T1c, N0, M0, stage IIA [cT1a-c/cT2a, N0, M0, PSA >=10 AND <20, GG 1] (AJCC 8th ed.), s/p TRUS Random biopsy. RADIATION SUMMARY: DATES OF TREATMENT: 12/08/2019-01/16/2020 AREA TREATED: Prostate DELIVERED DOSE: Area: Prostate 7,000 cGy in 28 fractions, 2 Arcs, IMRT (VMAT), 10 MV with daily CBCT TOTAL: 7,000 cGy in 28 fractions ELAPSED TIME: 39 days. INTERVAL HISTORY: The patient presents for routine follow-up. Overall doing well. Feels his urinary function has improved considerably. PSA HISTORY: PSA (ng/mL) Date Value 01/25/2021 0.29 11/01/2020 0.27 07/27/2020 0.41 02/09/2020 1.13 ALLERGIES No Known Allergies aspirin, enteric coated (ASPIRIN, ENTERIC COATED) 81 mg EC tablet q 24 HR. baclofen (LIORESAL) 20 mg tablet baclofen 20 mg tablet take 1 tablet by mouth three times a day if needed celecoxib (CELEBREX) 200 mg capsule Take 200 mg by mouth twice daily. lisinopril (ZESTRIL, PRINIVIL) 5 mg tablet lisinopril 5 mg tablet metFORMIN (GLUCOPHAGE) 850 mg tablet Take 850 mg by mouth three times daily. magnesium oxide (MAG-OX) 400 mg (241.3 mg magnesium) tablet Take 1 tablet by mouth once daily. metoprolol succinate ER (TOPROL XL) 50 mg 24 hr tablet Take 50 mg by mouth once daily. simvastatin (ZOCOR) 40 mg tablet simvastatin 40 mg tablet tamsulosin (FLOMAX) 0.4 mg Take 1 capsule by mouth twice daily. loperamide (IMODIUM) 2 mg cap(s) Take 2 mg by mouth twice daily. dicyclomine (BENTYL) 20 mg tablet Take 20 mg by mouth three times daily. modafinil (PROVIGIL) 200 mg tablet Take 200 mg by mouth once daily. lansoprazole (PREVACID) 30 mg capsule lansoprazole 30 mg capsule,delayed release take 1 capsule by mouth once daily pyridostigmine (MESTINON) 60 mg tablet Take 60 mg by mouth three times daily. REVIEW OF SYSTEMS: D/N = 4/1 Hematuria: none Dysuria: none Incontinence: none Urgency: mild Catheter use: none Medications to aid urination: y - Total AUA Score: 2 Bowel movement frequency: 1/day Bowel movement quality: normal Blood per rectum: none Androgen deprivation: Never. PHYSICAL EXAM: BP 125/64 Pulse 75 Temp 36.1 ?C (97 ?F) Resp 16 Wt 102.5 kg (226 lb) SpO2 97% BMI 31.96 kg/m? KPS: 100 General appearance: Alert and oriented. No acute distress. Abdomen: Normal abdominal exam, Abdomen soft, non-tender. No masses, organomegaly. Rectal exam def Extremities: No deformities, edema, skin discoloration, clubbing or cyanosis. Lymph Nodes: No cervical lymphadenopathy, No supraclavicular lymphadenopathy, No axillary lymphadenopathy. Skin: Skin color, texture, turgor normal, no suspicious rashes or lesions. ASSESSMENT/PLAN:DIAGNOSIS: Prostate adenocarcinoma, initial PSA 14.65, biopsy [place] score 3 + 3 = 6 (grade group 1), clinical stage T1c, N0, M0, stage IIA [cT1a-c/cT2a, N0, M0, PSA >=10 AND <20, GG 1] (AJCC 8th ed.), s/p definitive radiation. Patient is doing very well with excellent PSA response 1 year from treatment. No significant post radiation related problems. Recommend follow-up in 6 months repeat PSA. Signed by: Fawad Bansal MD cc: Dank Campo MD ([facility]) [address] [place] [address] Dr. Hull Portions of the above note extracted and edited from previous visit as well as active information included in the EMR. Referring Provider: Fawad BANSAL [[id number]] Allergies As of Date: 02/01/2021 (No Known Allergies) Date Reviewed: 02/01/2021 Reviewed by: Tila Herrera LPN - Fully Assessed Reason for Visit: Prostate Cancer [590] Primary Visit Diagnosis:Malignant neoplasm of prostate (HCC) [C61] Order(s):PSA/PROSTSPECAG DIAG [SQPSA] Order #: [id number] FUTURE Prescriptions as of 02/03/2021 - aspirin, enteric coated (ASPIRIN, ENTERIC COATED) 81 mg EC tablet q 24 HR. - baclofen (LIORESAL) 20 mg tablet baclofen 20 mg tablet take 1 tablet by mouth three times a day if needed - celecoxib (CELEBREX) 200 mg capsule Take 200 mg by mouth twice daily. - lisinopril (ZESTRIL, PRINIVIL) 5 mg tablet lisinopril 5 mg tablet - metFORMIN (GLUCOPHAGE) 850 mg tablet Take 850 mg by mouth three times daily. - magnesium oxide (MAG-OX) 400 mg (241.3 mg magnesium) t (more content not included)... Normal [facility] PSA, Diagnosticon 01-25-2021 PSA, Diagnostic 0.29 ng/mL Normal 0.00-2.59 [facility] Comment on above: Result Comment: Sandra manzo PSA test methodology used is the Electrochemiluminescence Immunoassay. Performed By: #### P SA #### [facility] [address] [place], [place] [address] OBSOLETEon 12-22-2020 OBSOLETE Refill (RADTSA) -- GEGE SNEED ([id number]) 1955 M Date Time Provider Department 12/22/20 Fawad BANSAL During your visit today, we recorded the following information about you: Allergies As of Date: 12/22/2020 (No Known Allergies) Date Reviewed: 11/03/2020 Reviewed by: Fawad Bansal MD - Fully Assessed Reason for Visit: Refill Request [94] Refill Request [94] Order(s):tamsulosin (FLOMAX) 0.4 mgTake 1 capsule by mouth twice daily.Disp: 60 capsuleRfl: 2 Prescriptions as of 01/04/2021 - tamsulosin (FLOMAX) 0.4 mg Take 1 capsule by mouth twice daily. - loperamide (IMODIUM) 2 mg cap(s) Take 2 mg by mouth twice daily. - dicyclomine (BENTYL) 20 mg tablet Take 20 mg by mouth three times daily. - modafinil (PROVIGIL) 200 mg tablet Take 200 mg by mouth once daily. - aspirin, enteric coated (ASPIRIN, ENTERIC COATED) 81 mg EC tablet q 24 HR. - baclofen (LIORESAL) 20 mg tablet baclofen 20 mg tablet take 1 tablet by mouth three times a day if needed - celecoxib (CELEBREX) 200 mg capsule Take 200 mg by mouth twice daily. - lansoprazole (PREVACID) 30 mg capsule lansoprazole 30 mg capsule,delayed release take 1 capsule by mouth once daily - lisinopril (ZESTRIL, PRINIVIL) 5 mg tablet lisinopril 5 mg tablet - metFORMIN (GLUCOPHAGE) 850 mg tablet Take 850 mg by mouth three times daily. - magnesium oxide (MAG-OX) 400 mg (241.3 mg magnesium) tablet Take 1 tablet by mouth once daily. - metoprolol succinate ER (TOPROL XL) 50 mg 24 hr tablet Take 50 mg by mouth once daily. - pyridostigmine (MESTINON) 60 mg tablet Take 60 mg by mouth three times daily. - simvastatin (ZOCOR) 40 mg tablet simvastatin 40 mg tablet Problem List As Of Date 12/22/2020 Noted Resolved Iron deficiency anemia due to chronic blood los*01/16/2020 Prescriptions ordered this encounter Disp Refills Start End TAMSULOSIN 0.4 MG CAPSULE 60 c* 2 01/03/2021 Route: ORAL Sig: Take 1 capsule by mouth twice daily. Medications Discontinued During This Encounter Prescriptions - tamsulosin (FLOMAX) 0.4 mg (Discontinued) Take 1 capsule by mouth twice daily. Encounter Status:Closed by TILA HERRERA on 01/04/21 [facility] CNOVon 11-03-2020 CNOV Office Visit (RADTSA ) -- GEGE SNEED ([id number]) 1955 M Date Time Provider Department 11/03/20 4:00 PM LAB/PORT RADT ADAM RADTSA During your visit today, we recorded the following information about you: Referring Provider: Fawad BANSAL [[id number]] Allergies As of Date: 11/03/2020 (No Known Allergies) Date Reviewed: 11/03/2020 Reviewed by: Fawad Bansal MD - Fully Assessed Reason for Visit: Prostate Cancer [590] Primary Visit Diagnosis:Malignant neoplasm of prostate (HCC) [C61] Other Visit Diagnoses:Urinary frequency [R35.0] Urinary urgency [R39.15] Prescriptions as of 11/03/2020 Sig: TAMSULOSIN 0.4 MG CAPSULE Take 1 capsule by mouth twice* LOPERAMIDE 2 MG CAPSULE Take 2 mg by mouth twice dionisio* DICYCLOMINE 20 MG TABLET Take 20 mg by mouth three lazaro* MODAFINIL 200 MG TABLET Take 200 mg by mouth once miguel* ASPIRIN 81 MG TABLET,DELAYED * q 24 HR. BACLOFEN 20 MG TABLET baclofen 20 mg tablet take * CELECOXIB 200 MG CAPSULE Take 200 mg by mouth twice da* LANSOPRAZOLE 30 MG CAPSULE,DE* lansoprazole 30 mg capsule,de* LISINOPRIL 5 MG TABLET lisinopril 5 mg tablet METFORMIN 850 MG TABLET Take 850 mg by mouth three ti* MAGNESIUM OXIDE 400 MG (241.3* Take 1 tablet by mouth once d* METOPROLOL SUCCINATE ER 50 MG* Take 50 mg by mouth once dionisio* PYRIDOSTIGMINE BROMIDE 60 MG * Take 60 mg by mouth three lazaro* SIMVASTATIN 40 MG TABLET simvastatin 40 mg tablet Problem List As Of Date 11/03/2020 Noted Resolved Iron deficiency anemia due to chronic blood los*01/16/2020 Encounter Status:Closed by TILA HERRERA on 11/03/20 Normal [facility] Office Visit (RADTSA ) -- ILONGEGE Dalal ([id number]) 1955 M Date Time Provider Department 11/03/20 4:00 PM Fawad BANSAL During your visit today, we recorded the following information about you: Temperature Pulse Respiration Blood pressure 97.5 degrees 61/minute 18/minute 145/62 Weight 103 kg Tila Herrera LPN 11/03/2020 4:11 PM Signed AUA=11 Fawad Bansal MD 11/04/2020 9:44 AM Signed Radiation Oncology - Follow Up Note PATIENT NAME: Gege Sneed PATIENT DIAGNOSIS: DIAGNOSIS: Prostate adenocarcinoma, initial PSA 14.65, biopsy [place] score 3 + 3 = 6 (grade group 1), clinical stage T1c, N0, M0, stage IIA [cT1a-c/cT2a, N0, M0, PSA >=10 AND <20, GG 1] (AJCC 8th ed.), s/p TRUS Random biopsy. RADIATION SUMMARY: DATES OF TREATMENT: 12/08/2019-01/16/2020 AREA TREATED: Prostate DELIVERED DOSE: Area: Prostate 7,000 cGy in 28 fractions, 2 Arcs, IMRT (VMAT), 10 MV with daily CBCT TOTAL: 7,000 cGy in 28 fractions ELAPSED TIME: 39 days. INTERVAL HISTORY: The patient presents for routine follow-up. Doing fairly well. Main complaint urinary frequency. Mostly during the day. He denies any obstructive symptoms or slow stream. Nocturia x1. No hematuria dysuria. PSA HISTORY: PSA (ng/mL) Date Value 11/01/2020 0.27 07/27/2020 0.41 02/09/2020 1.13 UA today without evidence of infection ALLERGIES No Known Allergies tamsulosin (FLOMAX) 0.4 mg Take 1 capsule by mouth twice daily. dicyclomine (BENTYL) 20 mg tablet Take 20 mg by mouth three times daily. aspirin, enteric coated (ASPIRIN, ENTERIC COATED) 81 mg EC tablet q 24 HR. baclofen (LIORESAL) 20 mg tablet baclofen 20 mg tablet take 1 tablet by mouth three times a day if needed celecoxib (CELEBREX) 200 mg capsule Take 200 mg by mouth twice daily. lansoprazole (PREVACID) 30 mg capsule lansoprazole 30 mg capsule,delayed release take 1 capsule by mouth once daily lisinopril (ZESTRIL, PRINIVIL) 5 mg tablet lisinopril 5 mg tablet metFORMIN (GLUCOPHAGE) 850 mg tablet Take 850 mg by mouth three times daily. magnesium oxide (MAG-OX) 400 mg (241.3 mg magnesium) tablet Take 1 tablet by mouth once daily. metoprolol succinate ER (TOPROL XL) 50 mg 24 hr tablet Take 50 mg by mouth once daily. simvastatin (ZOCOR) 40 mg tablet simvastatin 40 mg tablet loperamide (IMODIUM) 2 mg cap(s) Take 2 mg by mouth twice daily. modafinil (PROVIGIL) 200 mg tablet Take 200 mg by mouth once daily. pyridostigmine (MESTINON) 60 mg tablet Take 60 mg by mouth three times daily. REVIEW OF SYSTEMS: D/N = 4-6/1-2 Hematuria: none Dysuria: none Incontinence: none Urgency: mild Catheter use: none Medications to aid urination: y - Total AUA Score: 11 Bowel movement frequency: 1/day Bowel movement quality: normal Blood per rectum: none Last colonoscopy: last week Sexual activity: Fully potent Androgen deprivation: Never. PHYSICAL EXAM: BP 145/62 Pulse 61 Temp 36.4 ?C (97.5 ?F) Resp 18 Wt 103 kg (227 lb) SpO2 98% BMI 32.10 kg/m? KPS: 90 General appearance: Alert and oriented. No acute distress. Abdomen: Normal abdominal exam, Abdomen soft, non-tender. No masses, organomegaly. Rectal exam def Extremities: No deformities, edema, skin discoloration, clubbing or cyanosis. Lymph Nodes: No cervical lymphadenopathy, No supraclavicular lymphadenopathy, No axillary lymphadenopathy. and No inguinal lymphadenopathy.. Skin: Skin color, texture, turgor normal, no suspicious rashes or lesions. ASSESSMENT/PLAN:DIAGNOSIS: Prostate adenocarcinoma, initial PSA 14.65, biopsy [place] score 3 + 3 = 6 (grade group 1), clinical stage T1c, N0, M0, stage IIA [cT1a-c/cT2a, N0, M0, PSA >=10 AND <20, GG 1] (AJCC 8th ed.), s/p definitive radiation. Overall doing well, good initial PSA response. He has continued urinary complaints although improving with time. Encourage patient to continue follow-up with urology. Otherwise plan to see patient back in the fall for follow-up. Signed by: Fawad Bansal MD cc: Dank Campo MD ([facility]) [address] [place] [address] Dr. Hull Referring Provider: Fawad BANSAL [[id number]] Allergies As of Date: 11/03/2020 (No Known Allergies) Date Reviewed: 11/03/2020 Reviewed by: Fawad Bansal MD - Fully Assessed Reason for Visit: Prostate Cancer [590] Primary Visit Diagnosis:Malignant neoplasm of prostate (HCC) [C61] Order(s):PSA/PROSTSPECAG DIAG [SQPSA] Order #: [id number] FUTURE Prescriptions as of 11/03/2020 Sig: TAMSULOSIN 0.4 MG CAPSULE Take 1 capsule by mouth twice* DICYCLOMINE 20 MG TABLET Take 20 mg by mouth three lazaro* ASPIRIN 81 MG TABLET,DELAYED * q 24 HR. BACLOFEN 20 MG TABLET baclofen 20 mg tablet take * CELECOXIB 200 MG CAPSULE Take 200 mg by mouth twice da* LANSOPRAZOLE 30 MG CAPSULE,DE* lansoprazole 30 mg (more content not included)... Normal [facility] PSA, Diagnosticon 11-01-2020 PSA, Diagnostic 0.27 ng/mL Normal 0.00-2.59 [facility] Comment on above: Result Comment: Sandra manzo PSA test methodology used is the Electrochemiluminescence Immunoassay. Performed By: #### P SA #### [facility] [address] [address] Gi[place] 10-29-2020 [facility] Telephone (RADTSA) -- GEGE SNEED ([id number]) 1955 M Date Time Provider Department 10/29/20 Fawad BANSAL During your visit today, we recorded the following information about you: Tila Herrera LPN 10/29/2020 1:53 PM Barak Stinson called requesting to move up his follow up with Dr. Bansal from January due to urinary urgency and frequency. He states Dr. Bansal increased his Flomax to twice per day in May and he has not noticed any change. He said he is urinating every two hours. He denies burning or pain with urination. He has not continued follow up with Dr. Hull since completing radiation therapy. Call transferred to [facility] to move up appointment. Dr. Bansal, 2/9/21 PSA 0.41 do you want another PSA drawn prior to follow up 11/03/20? Please advise. ION Milian MD 10/29/2020 1:59 PM Signed Repeat psa. Tila Herrera LPN 10/29/2020 2:21 PM Signed PSA order pending your approval. Patient notified and requested to come in on Sunday to have lab drawn at our office. Tila Herrera LPN Allergies As of Date: 10/29/2020 (No Known Allergies) Date Reviewed: 07/14/2020 Reviewed by: Joann Richardson - Fully Assessed Reason for Visit: Urinary Frequency [1086] Urinary Urgency [2827] Primary Visit Diagnosis:Malignant neoplasm of prostate (HCC) [C61] Order(s):PSA/PROSTSPECAG DIAG [SQPSA] Order #: [id number] FUTURE Prescriptions as of 10/29/2020 Sig: TAMSULOSIN 0.4 MG CAPSULE Take 1 capsule by mouth twice* LOPERAMIDE 2 MG CAPSULE Take 2 mg by mouth twice dionisio* DICYCLOMINE 20 MG TABLET Take 20 mg by mouth three lazaro* MODAFINIL 200 MG TABLET Take 200 mg by mouth once miguel* ASPIRIN 81 MG TABLET,DELAYED * q 24 HR. BACLOFEN 20 MG TABLET baclofen 20 mg tablet take * CELECOXIB 200 MG CAPSULE Take 200 mg by mouth twice da* LANSOPRAZOLE 30 MG CAPSULE,DE* lansoprazole 30 mg capsule,de* LISINOPRIL 5 MG TABLET lisinopril 5 mg tablet METFORMIN 850 MG TABLET Take 850 mg by mouth three ti* MAGNESIUM OXIDE 400 MG (241.3* Take 1 tablet by mouth once d* METOPROLOL SUCCINATE ER 50 MG* Take 50 mg by mouth once dionisio* PYRIDOSTIGMINE BROMIDE 60 MG * Take 60 mg by mouth three lazaro* SIMVASTATIN 40 MG TABLET simvastatin 40 mg tablet Problem List As Of Date 10/29/2020 Noted Resolved Iron deficiency anemia due to chronic blood los*01/16/2020 Encounter Status:Closed by TILA HERRERA on 10/29/20 Normal [facility] [place] 10-08-2020 [facility] Telephone (HEMASA) -- GEGE SNEED ([id number]) 1955 M Date Time Provider Department 10/08/20 SHRUTHIMUSHTAQHEATHER ZAPATA During your visit today, we recorded the following information about you: Allergies As of Date: 10/08/2020 (No Known Allergies) Date Reviewed: 07/14/2020 Reviewed by: Joann Richardson - Fully Assessed Reason for Visit: Lab Orders [[id number]] Primary Visit Diagnosis:Iron deficiency anemia due to chronic blood loss [D50.0] Order(s):CBC + DIFF (FOR REMOTE [facility] USE) [SQRCBCDF] Order #: [id number] FUTURE COMP METABOLIC PANEL [SQCMP] Order #: [id number] FUTURE Prescriptions as of 10/08/2020 Sig: TAMSULOSIN 0.4 MG CAPSULE Take 1 capsule by mouth twice* LOPERAMIDE 2 MG CAPSULE Take 2 mg by mouth twice dionisio* DICYCLOMINE 20 MG TABLET Take 20 mg by mouth three lazaro* MODAFINIL 200 MG TABLET Take 200 mg by mouth once miguel* ASPIRIN 81 MG TABLET,DELAYED * q 24 HR. BACLOFEN 20 MG TABLET baclofen 20 mg tablet take * CELECOXIB 200 MG CAPSULE Take 200 mg by mouth twice da* LANSOPRAZOLE 30 MG CAPSULE,DE* lansoprazole 30 mg capsule,de* LISINOPRIL 5 MG TABLET lisinopril 5 mg tablet METFORMIN 850 MG TABLET Take 850 mg by mouth three ti* MAGNESIUM OXIDE 400 MG (241.3* Take 1 tablet by mouth once d* METOPROLOL SUCCINATE ER 50 MG* Take 50 mg by mouth once dionisio* PYRIDOSTIGMINE BROMIDE 60 MG * Take 60 mg by mouth three lazaro* SIMVASTATIN 40 MG TABLET simvastatin 40 mg tablet Problem List As Of Date 10/08/2020 Noted Resolved Iron deficiency anemia due to chronic blood los*01/16/2020 Encounter Status:Closed by TASHA GOOD on 10/14/20 [facility] OBSOLETEon 09-20-2020 OBSOLETE Refill (RADTSA) -- GEGE SNEED ([id number]) 1955 M Date Time Provider Department 09/20/20 Fawad BANSAL During your visit today, we recorded the following information about you: Allergies As of Date: 09/20/2020 (No Known Allergies) Date Reviewed: 07/14/2020 Reviewed by: Joann Richardson - Fully Assessed Reason for Visit: Refill Request [94] Refill Request [94] Order(s):tamsulosin (FLOMAX) 0.4 mgTake 1 capsule by mouth twice daily.Disp: 60 capsuleRfl: 2 Prescriptions as of 09/20/2020 Sig: TAMSULOSIN 0.4 MG CAPSULE Take 1 capsule by mouth twice* LOPERAMIDE 2 MG CAPSULE Take 2 mg by mouth twice dionisio* DICYCLOMINE 20 MG TABLET Take 20 mg by mouth three lazaro* MODAFINIL 200 MG TABLET Take 200 mg by mouth once miguel* ASPIRIN 81 MG TABLET,DELAYED * q 24 HR. BACLOFEN 20 MG TABLET baclofen 20 mg tablet take * CELECOXIB 200 MG CAPSULE Take 200 mg by mouth twice da* LANSOPRAZOLE 30 MG CAPSULE,DE* lansoprazole 30 mg capsule,de* LISINOPRIL 5 MG TABLET lisinopril 5 mg tablet METFORMIN 850 MG TABLET Take 850 mg by mouth three ti* MAGNESIUM OXIDE 400 MG (241.3* Take 1 tablet by mouth once d* METOPROLOL SUCCINATE ER 50 MG* Take 50 mg by mouth once dionisio* PYRIDOSTIGMINE BROMIDE 60 MG * Take 60 mg by mouth three lazaro* SIMVASTATIN 40 MG TABLET simvastatin 40 mg tablet Problem List As Of Date 09/20/2020 Noted Resolved Iron deficiency anemia due to chronic blood los*01/16/2020 Prescriptions ordered this encounter Disp Refills Start End TAMSULOSIN 0.4 MG CAPSULE 60 c* 2 09/20/2020 Route: ORAL Sig: Take 1 capsule by mouth twice daily. Medications Discontinued During This Encounter Prescriptions - tamsulosin ER (FLOMAX) 0.4 mg (Discontinued) Take 1 capsule by mouth twice daily. Encounter Status:Closed by TILA HERRERA on 10/14/20 [facility] Vital Signs Date Time Vital Sign Value Performing Clinician Facility 04-27-2023 12:40-0500 Diastolic blood pressure 68 mm[Hg] MD Dank Campo Work Phone: [facility] 04-27-2023 12:40-0500 Heart rate 75 /min MD Dank Campo Work Phone: [facility] 04-27-2023 12:40-0500 Respiratory rate 16 /min MD Dank Campo Work Phone: [facility] 04-27-2023 12:40-0500 SaO2% (BldA) [Mass fraction] 97 % MD Dank Campo Work Phone: [facility] 04-27-2023 12:40-0500 Systolic blood pressure 110 mm[Hg] MD Dank Campo Work Phone: [facility] 04-27-2023 10:29-0500 Body height 177.8 cm MD Dank Campo Work Phone: [facility] 04-27-2023 10:29-0500 Body weight 113.39 kg MD Dank Campo Work Phone: [facility] 04-10-2023 14:00-0400 Body height 177.8 cm Imad Asaad Other [employer] [facility] [employer] Other 04-10-2023 14:00-0400 Body mass index (BMI) [Ratio] 36.3 kg/m2 Imad Asaad Other [employer] Other 04-10-2023 14:00-0400 Body weight 114.76 kg Imad Asaad Other [employer] Other 04-10-2023 14:00-0400 Diastolic blood pressure 68 mm[Hg] Imad Asaad Other [facility] [employer] Other 04-10-2023 14:00-0400 Systolic blood pressure 113 mm[Hg] Imad Asaad Other [facility] [employer] Other 02-12-2023 09:46-0400 Blood Pressure Location Mikie HULL [facility] 02-12-2023 09:46-0400 Diastolic blood pressure 90 mm[Hg] Mikie HULL [facility] 02-12-2023 09:46-0400 Heart rate 68 /min Mikie HULL [facility] 02-12-2023 09:46-0400 Respiratory rate 16 /min Mikie HULL [facility] 02-12-2023 09:46-0400 Systolic blood pressure 138 mm[Hg] Mikie HULL [facility] 07-24-2022 13:52-0500 Diastolic blood pressure 78 mm[Hg] MD Dank Campo Work Phone: [facility] 07-24-2022 13:52-0500 Heart rate 71 /min MD Dank Campo Work Phone: [facility] 07-24-2022 13:52-0500 Respiratory rate 16 /min MD Dank Campo Work Phone: [facility] 07-24-2022 13:52-0500 SaO2% (BldA) [Mass fraction] 96 % MD Dank Campo Work Phone: [facility] 07-24-2022 13:52-0500 Systolic blood pressure 136 mm[Hg] MD Dank Campo Work Phone: [facility] 07-24-2022 12:29-0500 Body height 177.8 cm MD Dank Campo Work Phone: [facility] 07-24-2022 12:29-0500 Body temperature 98 [degF] MD Dank Campo Work Phone: [facility] 07-24-2022 12:29-0500 Body weight 115.66 kg MD Dank Campo Work Phone: [facility] 07-20-2022 10:00-0500 Body height 177.8 cm Imad Asaad Other [employer] [facility] [employer] Other 07-20-2022 10:00-0500 Body mass index (BMI) [Ratio] 36.73 kg/m2 Imad Asaad Other [employer] [facility] [employer] Other 07-20-2022 10:00-0500 Body weight 116.12 kg Imad Asaad Other [employer] Other 07-20-2022 10:00-0500 Diastolic blood pressure 96 mm[Hg] Imad Asaad Other [employer] Other 07-20-2022 10:00-0500 Systolic blood pressure 170 mm[Hg] Imad Asaad Other [employer] Other 02-03-2022 08:29-0400 Blood Pressure Location Mikie HULL [facility] 02-03-2022 08:29-0400 Diastolic blood pressure 88 mm[Hg] Mikie HULL [facility] 02-03-2022 08:29-0400 Heart rate 75 /min Mikie HULL [facility] 02-03-2022 08:29-0400 Respiratory rate 16 /min Mikie HULL [facility] 02-03-2022 08:29-0400 Systolic blood pressure 138 mm[Hg] Mikie HULL [facility] Encounters Encounter Date Encounter Type Care Provider Facility Start: 02-15-2024 ambulatory Mikie Sylvesteri ty:NOREEN Lazaroue Start: 06-26-2023 End: 06-26-2023 ambulatory Dank Campo Facility:[facility] Start: 06-26-2023 End: 06-26-2023 ambulatory MD Dank Campo Work Phone: [facility] Work Phone: Start: 06-26-2023 End: 06-26-2023 Patient encounter procedure MD Dank Campo Work Phone: [facility] [address] Work Phone: Start: 06-07-2023 End: 06-07-2023 ambulatory DANK CAMPO Not Available Start: 05-14-2023 End: 05-14-2023 ambulatory EDD HOLDEN Not Available Start: 05-09-2023 End: 05-09-2023 ambulatory DEXTER NI Not Available Start: 05-04-2023 End: 05-04-2023 ambulatory MAGDA ROSS Not Available Start: 05-02-2023 End: 05-02-2023 ambulatory DEXTER NI Not Available Start: 04-30-2023 End: 05-01-2023 ambulatory EDD HOLDEN Not Available Start: 04-27-2023 End: 04-27-2023 ambulatory Dank Campo Facility:[facility] Start: 04-27-2023 End: 04-27-2023 Admission to same day surgery center MD Dank Campo Work Phone: [facility] Work Phone: Start: 04-27-2023 End: 04-27-2023 ambulatory MD Dank Campo Work Phone: [facility] Work Phone: Start: 04-10-2023 End: 04-10-2023 ambulatory Imad Asaad Other [employer] Other Start: 04-10-2023 Office outpatient ne w 45 minutes Imad Asaad [facility] Start: 03-20-2023 End: 03-20-2023 ambulatory Imad Asaad Other [employer] Other Start: 03-20-2023 Telephone encounter Imad Asaad [facility] Start: 02-12-2023 End: 02-13-2023 ambulatory Mikie HULL Facility:[facility] Start: 02-12-2023 End: 02-12-2023 Patient encounter procedure Mikie HULL [facility] Start: 02-06-2023 End: 02-07-2023 ambulatory ROSALVA MURO Facility:[facility] Start: 02-06-2023 End: 02-06-2023 Lab Drop off ROSALVA MURO [facility] Start: 02-06-2023 End: 02-06-2023 Patient encounter procedure DEJUAN HULL [facility] Start: 12-26-2022 End: 12-27-2022 ambulatory ROSALVA MURO Facility:[facility] Start: 11-28-2022 End: 11-29-2022 ambulatory ROSALVA MURO Facility:[facility] Start: 10-17-2022 End: 10-18-[address] DANK CAMPO Facility: Start: 09-20-2022 End: 09-20-2022 ambulatory Imad Asaad Other [employer] Other Start: 09-20-2022 Telephone encounter Imad Asaad [facility] Start: 09-14-2022 End: 09-14-[address] DANK CAMPO Facility:[facility] Start: 09-12-2022 End: 09-13-[address] DANK CAMPO Facility: Start: 07-24-2022 Telephone encounter Imad Asaad [facility] Start: 07-24-2022 End: 07-24-2022 ambulatory Dank Campo Facility:[facility] Start: 07-24-2022 End: 07-24-2022 Admission to same day surgery center MD Dank Campo Work Phone: [facility] Work Phone: Start: 07-24-2022 End: 07-24-2022 ambulatory MD Dank Campo Work Phone: [facility] Work Phone: Start: 07-20-2022 End: 07-20-2022 ambulatory Imad Asaad Other [facility] [employer] Other Start: 07-20-2022 Patient encounter procedure Imad Asaad [facility] Start: 05-10-2022 End: 05-11-[address] DANK CAMPO Facility:[facility] Start: 04-14-2022 End: 04-15-[address] SORIN SHORE Facility:[facility] Start: 02-03-2022 End: 02-03-2022 Patient encounter procedure Mikie HULL [facility] Start: 01-30-2022 End: 01-31-2022 ambulatory MR REBECCA KING . Facility:[facility] Start: 01-27-2022 End: 01-28-[address] MIKIE HULL . Facility:[facility] Procedures Date Procedure Procedure Detail Performing Clinician Start: 04-27-2023 Colonoscopy MD Dank Campo Work Phone: Start: 07-24-2022 Esophagogastroduodenoscopy MD Dank Mckinley er Work Phone: Start: 03-18-2021 Laparoscopic cholecystectomy Mikie GOODE Start: 01-16-2020 Radiation (physical force) Mikie RIOS S Comment on above: 12/08/2019 - 01/16/2020 12/08/2019 - 020 Start: 09-23-2019 Transrectal biopsy of prostate using ultrasound guidance Mikie HULL Start: 09-03-2018 Transrectal biopsy of prostate using ultrasound guidance Mikie HULL Appendectomy Mikie HULL Colonoscopy Mikie HULL Tonsillectomy Mikie HULL Plan of Treatment Date Care Activity Detail Author Start: 04-27-2023 [facility] Start: 07-24-2022 [facility] Patient Education [facility] Work Phone: Immunizations Immunization Date Immunization Notes Care Provider Fa cilimine 01-20-2021 tetanus and diphther ia toxoids, adsorbed, preservative free, for adult use (5 Lf of tetanus toxoid and 2 Lf of diphtheria toxoid) Imad Asaad Other [employer] Other 10-16-2020 SARS-CoV-2 (COVID-19 ) mRNA BNT-162b2 vax Mikie HULL [facility] 10-01-2020 COVID-19 mRNAAlfred (Pfizer) MD Dank Campo Work Phone: [facility] 09-08-2020 COVID-19 Alfred Hightower (Pfizer) MD Dank Campo Work Phone: [facility] Payers Date Payer Category Payer Unknown [id number] 2022 Self-pay [id number] 1959 Medicare [id number] 1955 Unknown [id number] 2.16.840.1.100103.3.579.2.593 1955 Unknown [id number] 2.16.840.1.145995.3.579.2.593 1955 Unknown [id number] 2.16.840.1.135653.3.579.2.593 1955 Unknown [id number] 2.16.840.1.944352.3.579.2.593 1955 Unknown [id number] 2.16.840.1.575734.3.579.2.593 1955 Unknown [id number] 2.16.840.1.565997.3.579.2.593 1955 Unknown [id number] 2.16.840.1.715033.3.579.2.593 1955 Unknown [id number] 2.16.840.1.951055.3.579.2.593 1955 Unknown [id number] 2.16.840.1.699645.3.579.2.727 1955 Unknown [id number] 2.16.840.1.795942.3.579.2.727 1955 Unknown [id number] 2.16.840.1.978707.3.579.2.727 1955 Unknown [id number] 2.16.840.1.903900.3.579.2.727 1955 Unknown [id number] 2.16.840.1.272776.3.579.2.72 1955 Unknown [id number] 2.16.840.1.159103.3.579.2.72 1955 Unknown [id number] 2.16.840.1.584996.3.579.2.72 1955 Unknown [id number] 2.16.840.1.558635.3.579.2.1259 1955 Unknown [id number] 2.16.840.1.807381.3.579.2.1258 1955 Unknown [id number] 2.16.840.1.080793.3.579.2.1258 1955 Unknown [id number] 2.16.840.1.697435.3.579.2.1258 1955 Unknown [id number] 2.16.840.1.325482.3.579.2.1259 1955 Unknown [id number] 2.16.840.1.795000.3.579.2.1259 1955 Unknown [id number] 2.16.840.1.974930.3.579.2.1259 Medicare Medicare [id number] Unknown Ross BC/ [id number] Unknown [id number] 2.16.840.1.474560.3.579.2.531 Unknown [id number] 2.16.840.1.321426.3.579.2.531 Unknown [id number] 2.16.840.1.629579.3.579.2.531 Worker's Compensation [employer] [id number] Worker's Compensation [employer] [facility] [id number] Social History Date Type Detail Facility Start: 02-03-2022 End: 04-27-2023 Ex-smoker (finding) [facility] Male [facility] Start: 1955 Sex Assigned At Male F [facility] Medical Equipment Procedure Code Equipment Code Equipment Origin al Text Equipment Identifier Dates EGD (esophagogastroduod enoscopy) Video capsule endoscopy system [id number] FDA Start: 08-18-2020 Goals Date Patient Goal Desired Activity /State Functional Status Date Assessment Result Facility 02-12-2023 Functional Status N/A [facility] 02-03-2022 N/A [facility] Clinical Notes 11-04-2020 to 04-27-2023 Note Date & Type Note Facility 04-27-2023 Procedure note [facility] 04-10-2023 Evaluation note Encounter Date Diagnosis Assessment Notes Mar, GERD (gastroesophage al reflux disease) (ICD-10 - K21.9) The patient continues to complain of ongoing regurgitation. He is taking Lansoprazole 30 mg dialy & we will increase this to 30 mg bid. Mar, Hemorrhoids (ICD-10 - K64.9) Mar, Alternating constipation and diarrhea (ICD-10 - R19.8) [facility] Other 10-03-2023 Evaluation note* Encounter Date Diagnosis Assessment Notes Treatment Notes Treatment Clinical Notes Mar, Gastroesophageal ref lux disease with esophagitis (ICD-10 - K21.0) [facility] Other 08-28-2023 Hospital Discharge instructions Patient Education 02/12/2023 10:02:15 Prostate Cancer Prostate Cancer The prostate is a small gland that produces fluid that makes up semen (seminal fluid). It is located below the bladder in men, in front of the rectum. Prostate cancer is the abnormal growth of cells in the prostate gland. What are the causes? The exact cause of this condition is not known. What increases the risk? You are more likely to develop this condition if: You are 65 years of age or older. You have a family history of prostate cancer. You have a family history of breast and ovarian cancer. You have genes that are passed from parent to child (inherited), such as BRCA1 and BRCA2. You have Balderrama syndrome. men and men of descent are diagnosed with prostate cancer at higher rates than other men. The reasons for this are not well understood and are likely due to a combination of genetic and environmental factors. What are the signs or symptoms? Symptoms of this condition include: Problems with urination. This may include: ?A weak or interrupted flow of urine. ?Trouble starting or stopping urination. ?Trouble emptying the bladder all the way. ?The need to urinate more often, especially at night. Blood in urine or semen. Persistent pain or discomfort in the lower back, lower abdomen, or hips. Trouble getting an erection. Weakness or numbness in the legs or feet. How is this diagnosed? This condition can be diagnosed with: A digital rectal exam. For this exam, a health care provider inserts a gloved finger into the rectum to feel the prostate gland. A blood test called a prostate-specific antigen (PSA) test. A procedure in which a sample of tissue is taken from the prostate and checked under a microscope (prostate biopsy). An imaging test called transrectal ultrasonography. Once the condition is diagnosed, tests will be done to determine how far the cancer has spread. This is called staging the cancer. Staging may involve imaging tests, such as a bone scan, CT scan, PETscan, or MRI. Stages of prostate cancer The stages of prostate cancer are as follows: Stage 1 (I). At this stage, the cancer is found in the prostate only. The cancer is not visible on imaging tests, and it is usually found by accident, such as during prostate surgery. Stage 2 (II). At this stage, the cancer is more advanced than it is in stage 1, but the cancer has not spread outside the prostate. Stage 3 (III). At this stage, the cancer has spread beyond the outer layer of the prostate to nearby tissues. The cancer may be found in the seminal vesicles, which are near the bladder and the prostate. Stage 4 (IV). At this stage, the cancer has spread to other parts of the body, such as the lymph nodes, bones, bladder, rectum, liver, or lungs. Prostate cancer grading Prostate cancer is also graded according to how the cancer cells look under a microscope. This is called the [place] score and the total score can range from 6 10, indicating how likely it is that the cancer will spread (metastasize) to other parts of the body. The higher the score, the greater thelikelihood that the cancer will spread. [place] 6 or lower: This indicates that the cancer cells look similar to normal prostate cells (well differentiated). [place] 7: This indicates that the cancer cells look somewhat similar to normal prostate cells (moderately differentiated). [place] 8, 9, or 10: This indicates that the cancer cells look very different than normal prostate cells (poorly differentiated). How is this treated? Treatment for this condition depends on several factors, including the stage of the cancer, your age, personal preferences, and your overall health. Talk with your health care provider about treatment options that are recommended for you. Common treatments include: Observation for early stage prostate cancer (active surveillance). This involves having exams, blood tests, and in some cases, more biopsies. For some men, this is the only treatment needed. Surgery. Types of surgeries include: ?Open surgery (radical prostatectomy). In this surgery, a larger incision is made to remove the prostate. ?A laparoscopic radical prostatectomy. This is a surgery to remove the prostate and lymph nodes through several small incisions. It is often referred to as a minimally invasive surgery. ?A robotic radical prostatectomy. This is laparoscopic surgery to remove the prostate and lymph nodes with the help of robotic arms that are controlled by the surgeon. ?Cryoablation. This is surgery to freeze and destroy cancer cells. Radiation treatment. Types of radiation treatment include: ?External beam radiation. This type aims beams of radiation from outside the body at the prostate to destroy cancerous cells. ?Brachytherapy. This type uses radioactive needles, seeds, wires, or tubes that are implanted into the prostate gland. Like external beam radiation, brachytherapy destroys cancerous cells. An advantage is that this type of radiation limits the damage to surrounding tissue and has fewer side effects. Chemotherapy. This treatment kills cancer cells or stops them from multiplying. It kills both cancer cells and normal cells. Targeted therapy. This treatment uses medicines to kill cancer cells without damaging normal cells. Hormone treatment. This treatment involves taking medicines that act on testosterone, one of the male hormones, by: ?Stopping your body from producing testosterone. ?Blocking testosterone from reaching cancer cells. Follow these instructions at home: Lifestyle Do not use any products that contain nicotine or tobacco. These products include cigarettes, chewing tobacco, and vaping devices, such as e-cigarettes. If you need help quitting, ask your health careprovider. Eat a healthy diet. To do this: ?Eat foods that are high in fiber. These include beans, whole grains, and fresh fruits and vegetables. ?Limit foods that are high in fat and sugar. These include fried or sweet foods. Treatment for prostate cancer may affect sexual function. If you have a partner, continue to have intimate moments. This may include touching, holding, hugging, and caressing your partner. Get plenty of sleep. Consider joining a support group for men who have prostate cancer. Meeting with a support group mayhelp you learn to manage the stress of having cancer. General instructions Take deqy-sgp-xnatuwn and prescription medicines only as told by your health care provider. If you have to go to the hospital, notify your cancer specialist (oncologist). Keep all follow-up visits. This is important. Where to find more information [place] [employer]: www.cancer.org [place] [employer]: www.cancer.net National Cancer [place]: www.cancer.gov Contact a health care provider if: You have new or increasing trouble urinating. You have new or increasing blood in your urine. You have new or increasing pain in your hips, back, or chest. Get help right away if: You have weakness or numbness in your legs. You cannot control urination or your bowel movements (incontinence). You have chills or a fever. Summary The prostate is a small gland that is involved in the production of semen. It is located below a man's bladder, in front of the rectum. Prostate cancer is the abnormal growth of cells in the prostate gland. Treatment for this condition depends on the stage of the cancer, your age, personal preferences, and your overall health. Talk with your health care provider about treatment options that are recommended for you. Consider joining a support group for men who have prostate cancer. Meeting with a support group mayhelp you learn to manage the stress of having cancer. This information is not intended to replace advice given to you by your health care provider. Make sure you discuss any questions you have with your health care provider. Document Revised: 08/31/2021 Document Reviewed: 08/31/2021 [employer] Patient Education 2022 CoN[employer]ative. Follow Up Care 02/03/2022 09:06:37 With:NICOLA RAYMUNDO, Mikie Owens, URL Address: [facility] [address], [place] [id number]- [phone] When: Unknown Comments:1 yr w/ PSA [facility] 04-05-2023 Evaluation note* Encounter Date Diagnosis Assessment Notes Treatment Notes Treatment Clinical Notes Sep, Gastroesophageal ref lux disease with esophagitis (ICD-10 - K21.0) [facility] Other 02-06-2023 Procedure [facility]02-02-2023 Evaluation note* Encounter Date Diagnosis Assessment Notes Treatment Notes Treatment Clinical Notes Jul, Diarrhea (ICD-10 - R19.7) Jul, GERD (gastroesophageal reflux disease) (ICD-10 - K21.9) Jul, Hemorrhoids (ICD-10 - K64.9) PATIENT TO START ANUSOL CREAM USE SITZ BATH NEEDED Jul, Dysphagia (ICD-10 - R13.10) [facility] Other 10-28-2022 NotePROCEDURE: XR FOOT RT MIN 3 VIEWS COMPARISON: None. HISTORY: Pain in right foot FINDINGS: BONES:No acute fracture or dislocation. Persistent hammertoe deformities. Moderate hallux valgus. 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 Bulky enthesopathic spurring of the calcaneus SOFT TISSUES:Negative. No visible soft tissue swelling. EFFUSION:None visible. OTHER: Negative. IMPRESSION: Degenerative changes Electronically authenticated by: SORIN SHORE Date: 2022-04-14 18:01[facility]08-19-2022 Hospital Discharge instructions Patient Education 02/03/2022 08:55:56 Benign Prostatic Hyperplasia Benign Prostatic Hyperplasia Benign prostatic hyperplasia (BPH) is an enlarged prostate gland that is caused by the normal agingprocess and not by cancer. The prostate is a walnut-sized gland that is involved in the production of semen. It is located in front of the rectum and below the bladder. The bladder stores urine and the urethra is the tube that carries the urine out of the body. The prostate may get bigger as a man gets older. An enlarged prostate can press on the urethra. This can make it harder to pass urine. The build-up of urine in the bladder can cause infection. Back pressure and infection may progress to bladder damage and kidney (renal) failure. What are the causes? This condition is part of a normal aging process. However, not all men develop problems from this condition. If the prostate enlarges away from the urethra, urine flow will not be blocked. If it enlarges toward the urethra and compresses it, there will be problems passing urine. What increases the risk? This condition is more likely to develop in men over the age of 50 years. What are the signs or symptoms? Symptoms of this condition include: Getting up often during the night to urinate. Needing to urinate frequently during the day. Difficulty starting urine flow. Decrease in size and strength of your urine stream. Leaking (dribbling) after urinating. Inability to pass urine. This needs immediate treatment. Inability to completely empty your bladder. Pain when you pass urine. This is more common if there is also an infection. Urinary tract infection (UTI). How is this diagnosed? This condition is diagnosed based on your medical history, a physical exam, and your symptoms. Tests will also be done, such as: A post-void bladder scan. This measures any amount of urine that may remain in your bladder after you finish urinating. A digital rectal exam. In a rectal exam, your health care provider checks your prostate by putting a lubricated, gloved finger into your rectum to feel the back of your prostate gland. This exam detects the size of your gland and any abnormal lumps or growths. An exam of your urine (urinalysis). A prostate specific antigen (PSA) screening. This is a blood test used to screen for prostate cancer. An ultrasound. This test uses sound waves to electronically produce a picture of your prostate gland. Your health care provider may refer you to a specialist in kidney and prostate diseases (urologist). How is this treated? Once symptoms begin, your health care provider will monitor your condition (active surveillance or watchful waiting). Treatment for this condition will depend on the severity of your condition. Treatment may include: Observation and yearly exams. This may be the only treatment needed if your condition and symptoms are mild. Medicines to relieve your symptoms, including: ?Medicines to shrink the prostate. ?Medicines to relax the muscle of the prostate. Surgery in severe cases. Surgery may include: ?Prostatectomy. In this procedure, the prostate tissue is removed completely through an open incision or with a laparoscope or robotics. ?Transurethral resection of the prostate (TURP). In this procedure, a tool is inserted through the opening at the tip of the penis (urethra). It is used to cut away tissue of the inner core of the prostate. The pieces are removed through the same opening of the penis. This removes the blockage. ?Transurethral incision (TUIP). In this procedure, small cuts are made in the prostate. This lessens the prostate's pressure on the urethra. ?Transurethral microwave thermotherapy (TUMT). This procedure uses microwaves to create heat. The heat destroys and removes a small amount of prostate tissue. ?Transurethral needle ablation (TUNA). This procedure uses radio frequencies to destroy and remove a small amount of prostate tissue. ?Interstitial laser coagulation (ILC). This procedure uses a laser to destroy and remove a small amount of prostate tissue. ?Transurethral electrovaporization (TUVP). This procedure uses electrodes to destroy and remove a small amount of prostate tissue. ?Prostatic urethral lift. This procedure inserts an implant to push the lobes of the prostate away from the urethra. Follow these instructions at home: Take [id number] and prescription medicines only as told by your health care provider. Monitor your symptoms for any changes. Contact your health care provider with any changes. Avoid drinking large amounts of liquid before going to bed or out in public. Avoid or reduce how much caffeine or alcohol you drink. Give yourself time when you urinate. Keep all follow-up visits as told by your health care provider. This is important. Contact a health care provider if: You have unexplained back pain. Your symptoms do not get better with treatment. You develop side effects from the medicine you are taking. Your urine becomes very dark or has a bad smell. Your lower abdomen becomes distended and you have trouble passing your urine. Get help right away if: You have a fever or chills. You suddenly cannot urinate. You feel lightheaded, or very dizzy, or you faint. There are large amounts of blood or clots in the urine. Your urinary problems become hard to manage. You develop moderate to severe low back or flank pain. The flank is the side of your body between the ribs and the hip. These symptoms may represent a serious problem that is an emergency. Do not wait to see if the symptoms will go away. Get medical help right away. Call your local emergency services (911 in the [place] Do not drive yourself to the hospital. Summary Benign prostatic hyperplasia (BPH) is an enlarged prostate that is caused by the normal aging process and not by cancer. An enlarged prostate can press on the urethra. This can make it hard to pass urine. This condition is part of a normal aging process and is more likely to develop in men over the age of 50 years. Get help right away if you suddenly cannot urinate. This information is not intended to replace advice given to you by your health care provider. Make sure you discuss any questions you have with your health care provider. Document Released: 06/04/2006 Document Revised: 04/29/2019 Document Reviewed: 07/09/2017 [employer] Patient Education 2020 CoNarrative. Follow Up Care 08/05/2021 10:59:30 With:NICOLA RAYMUNDO, Mikie Owens, URL Address: [facility] [address], [place] [address]- When:1 year Comments:W/ TONO [facility] 08-17-2021 NoteHNO ID: [id number] Author: Fawad Bansal MD Service: ? Author Type: Physician Type: Progress Notes Filed: 02/03/2021 9:48 AM Note Text: Radiation Oncology - Follow Up Note PATIENT NAME: Gege Sneed PATIENT DIAGNOSIS: DIAGNOSIS: Prostate adenocarcinoma, initial PSA 14.65, biopsy [place] score 3 + 3 = 6 (grade group 1), clinical stage T1c, N0, M0, stage IIA [cT1a-c/cT2a, N0, M0, PSA >=10 AND <20, GG 1] (AJCC 8th ed.), s/p TRUS Random biopsy. RADIATION SUMMARY: DATES OF TREATMENT: 12/08/2019-01/16/2020 AREA TREATED: Prostate DELIVERED DOSE: Area: Prostate 7,000 cGy in 28 fractions, 2 Arcs, IMRT (VMAT), 10 MV with daily CBCT TOTAL: 7,000 cGy in 28 fractions ELAPSED TIME: 39 days. INTERVAL HISTORY: The patient presents for routine follow-up. Overall doing well. Feels his urinary function has improved considerably. PSA HISTORY: PSA (ng/mL) Date Value 01/25/2021 0.29 11/01/2020 0.27 07/27/2020 0.41 02/09/2020 1.13 ALLERGIES No Known Allergies aspirin, enteric coated (ASPIRIN, ENTERIC COATED) 81 mg EC tablet q 24 HR. baclofen (LIORESAL) 20 mg tablet baclofen 20 mg tablet take 1 tablet by mouth three times a day if needed celecoxib (CELEBREX) 200 mg capsule Take 200 mg by mouth twice daily. lisinopril (ZESTRIL, PRINIVIL) 5 mg tablet lisinopril 5 mg tablet metFORMIN (GLUCOPHAGE) 850 mg tablet Take 850 mg by mouth three times daily. magnesium oxide (MAG-OX) 400 mg (241.3 mg magnesium) tablet Take 1 tablet by mouth once daily. metoprolol succinate ER (TOPROL XL) 50 mg 24 hr tablet Take 50 mg by mouth once daily. simvastatin (ZOCOR) 40 mg tablet simvastatin 40 mg tablet tamsulosin (FLOMAX) 0.4 mg Take 1 capsule by mouth twice daily. loperamide (IMODIUM) 2 mg cap(s) Take 2 mg by mouth twice daily. dicyclomine (BENTYL) 20 mg tablet Take 20 mg by mouth three times daily. modafinil (PROVIGIL) 200 mg tablet Take 200 mg by mouth once daily. lansoprazole (PREVACID) 30 mg capsule lansoprazole 30 mg capsule,delayed release take 1 capsule by mouth once daily pyridostigmine (MESTINON) 60 mg tablet Take 60 mg by mouth three times daily. REVIEW OF SYSTEMS: D/N = 4/ Hematuria: none Dysuria: none Incontinence: none Urgency: mild Catheter use: none Medications to aid urination: y - Total AUA Score: 2 Bowel movement frequency: 1/day Bowel movement quality: normal Blood per rectum: none Androgen deprivation: Never. PHYSICAL EXAM: BP 125/64 Pulse 75 Temp 36.1 ?C (97 ?F) Resp 16 Wt 102.5 kg (226 lb) SpO2 97% BMI 31.96 kg/m? KPS: 100 General appearance: Alert and oriented. No acute distress. Abdomen: Normal abdominal exam, Abdomen soft, non-tender. No masses, organomegaly. Rectal exam def Extremities: No deformities, edema, skin discoloration, clubbing or cyanosis. Lymph Nodes: No cervical lymphadenopathy, No supraclavicular lymphadenopathy, No axillary lymphadenopathy. Skin: Skin color, texture, turgor normal, no suspicious rashes or lesions. ASSESSMENT/PLAN:DIAGNOSIS: Prostate adenocarcinoma, initial PSA 14.65, biopsy [place] score 3 + 3 = 6 (grade group 1), clinical stage T1c, N0, M0, stage IIA [cT1a-c/cT2a, N0, M0, PSA >=10 AND <20, GG 1] (AJCC 8th ed.), s/p definitive radiation. Patient is doing very well with excellent PSA response 1 year from treatment. No significant post radiation related problems. Recommend follow-up in 6 months repeat PSA. Signed by: Fawad Bansal MD cc: Dank Campo MD ([facility]) [address] [place] [address] Dr. Hull Portions of the above note extracted and edited from previous visit as well as active information included in the EMR.[facility] 11-04-2020 NoteHNO ID: [id number] Author: Fawad Bansal MD Service: ? Author Type: Physician Type: Progress Notes Filed: 11/04/2020 9:44 AM Note Text: Radiation Oncology - Follow Up Note PATIENT NAME: Gege Sneed PATIENT DIAGNOSIS: DIAGNOSIS: Prostate adenocarcinoma, initial PSA 14.65, biopsy [place] score 3 + 3 = 6 (grade group 1), clinical stage T1c, N0, M0, stage IIA [cT1a-c/cT2a, N0, M0, PSA >=10 AND <20, GG 1] (AJCC 8th ed.), s/p TRUS Random biopsy. RADIATION SUMMARY: DATES OF TREATMENT: 12/08/2019-01/16/2020 AREA TREATED: Prostate DELIVERED DOSE: Area: Prostate 7,000 cGy in 28 fractions, 2 Arcs, IMRT (VMAT), 10 MV with daily CBCT TOTAL: 7,000 cGy in 28 fractions ELAPSED TIME: 39 days. INTERVAL HISTORY: The patient presents for routine follow-up. Doing fairly well. Main complaint urinary frequency. Mostly during the day. He denies any obstructive symptoms or slow stream. Nocturia x1. No hematuria dysuria. PSA HISTORY: PSA (ng/mL) Date Value 11/01/2020 0.27 07/27/2020 0.41 02/09/2020 1.13 UA today without evidence of infection ALLERGIES No Known Allergies tamsulosin (FLOMAX) 0.4 mg Take 1 capsule by mouth twice daily. dicyclomine (BENTYL) 20 mg tablet Take 20 mg by mouth three times daily. aspirin, enteric coated (ASPIRIN, ENTERIC COATED) 81 mg EC tablet q 24 HR. baclofen (LIORESAL) 20 mg tablet baclofen 20 mg tablet take 1 tablet by mouth three times a day if needed celecoxib (CELEBREX) 200 mg capsule Take 200 mg by mouth twice daily. lansoprazole (PREVACID) 30 mg capsule lansoprazole 30 mg capsule,delayed release take 1 capsule by mouth once daily lisinopril (ZESTRIL, PRINIVIL) 5 mg tablet lisinopril 5 mg tablet metFORMIN (GLUCOPHAGE) 850 mg tablet Take 850 mg by mouth three times daily. magnesium oxide (MAG-OX) 400 mg (241.3 mg magnesium) tablet Take 1 tablet by mouth once daily. metoprolol succinate ER (TOPROL XL) 50 mg 24 hr tablet Take 50 mg by mouth once daily. simvastatin (ZOCOR) 40 mg tablet simvastatin 40 mg tablet loperamide (IMODIUM) 2 mg cap(s) Take 2 mg by mouth twice daily. modafinil (PROVIGIL) 200 mg tablet Take 200 mg by mouth once daily. pyridostigmine (MESTINON) 60 mg tablet Take 60 mg by mouth three times daily. REVIEW OF SYSTEMS: D/N = 4-6/1-2 Hematuria: none Dysuria: none Incontinence: none Urgency: mild Catheter use: none Medications to aid urination: y - Total AUA Score: 11 Bowel movement frequency: 1/day Bowel movement quality: normal Blood per rectum: none Last colonoscopy: last week Sexual activity: Fully potent Androgen deprivation: Never. PHYSICAL EXAM: BP 145/62 Pulse 61 Temp 36.4 ?C (97.5 ?F) Resp 18 Wt 103 kg (227 lb) SpO2 98% BMI 32.10 kg/m? KPS: 90 General appearance: Alert and oriented. No acute distress. Abdomen: Normal abdominal exam, Abdomen soft, non-tender. No masses, organomegaly. Rectal exam def Extremities: No deformities, edema, skin discoloration, clubbing or cyanosis. Lymph Nodes: No cervical lymphadenopathy, No supraclavicular lymphadenopathy, No axillary lymphadenopathy. and No inguinal lymphadenopathy.. Skin: Skin color, texture, turgor normal, no suspicious rashes or lesions. ASSESSMENT/PLAN:DIAGNOSIS: Prostate adenocarcinoma, initial PSA 14.65, biopsy [place] score 3 + 3 = 6 (grade group 1), clinical stage T1c, N0, M0, stage IIA [cT1a-c/cT2a, N0, M0, PSA >=10 AND <20, GG 1] (AJCC 8th ed.), s/p definitive radiation. Overall doing well, good initial PSA response. He has continued urinary complaints although improving with time. Encourage patient to continue follow-up with urology. Otherwise plan to see patient back in the fall for follow-up. Signed by: Fawad Bansal MD cc: Dank Campo MD ([facility]) [address] [place] [address] [facility] Future Appointments Appointment Date:02/12/2023 09:15:00 AM Scheduled Provider:Mikie HULL MD Location:[facility] Appointment Type:URO Office Visit Diagnostic Tests Pending * PSA Total 02/03/22 [facility] evaluation + Plan note Future Appointments Appointment Date:02/12/2023 09:15:00 AM Scheduled Provider:Mikie HULL MD Location:[facility] Appointment Type:URO Office Visit [facility] evaluation + Plan note Future Appointments Appointment Date:02/15/2024 08:15:00 AM Scheduled Provider:Mikie HULL MD Location:[facility] Appointment Type:URO Office Visit Diagnostic Tests Pending * PSA Total 02/12/[address] [facility] evaluation noteNo assessment information available [facility] Work Phone: Evaluation noteNo InformationNort [employer] Other History and physical note Author Kike Bernal [facility] July 24, 2022 1:05pm Note Date/Time July 24, 2022 1 :05pm [facility] [address] [place] [address] Gastroenterology H&P Signed Patient: Gege Sneed MR#: [id number] : 1955 Acct:[id number] Age/Sex: 66 / M Adm Date: 3 Loc: Room: Type: [facility] Attending Dr: Kike Bernal MD Copies to: MD Dank Ralph MD~ Date of Service: 07/24/2022 HISTORY & PHYSICAL: Patient's history with special attention to the cardiovascular, pulmonary systems and the current problem was reviewed with the patient immediately prior to the procedure. Present medications and doses reviewed in the EMR. Allergies and pertinent laboratory tests were also reviewedat this time in the EMR. The physical examination, as below, was then performed. Indication, assessment and HPI: 66-year-old man with history of Carver's esophagus here for EGD for evaluation of dysphagia Family history of GI malignancy? No PHYSICAL EXAMINATION Mouth and Pharynx : Moist mucus membranes, normal dentition Cardiac: Regular rate, regular rhythm Pulmonary: Clear to auscultation bilaterally, no wheezing Neurological: Alert and oriented x3, no focal deficits noted Abdomen: Abdomen soft, non-tender REVIEW OF SYSTEMS Constitutional: Denies malaise, fevers Cardiovascular: Denies chest pain, palpitations Respiratory: Denies shortness of breath, wheezing Gastrointestinal: Per HPI Genitourinary: Denies dysuria, polyuria Musculoskeletal: Denies joint swelling, joint stiffness Neurological: Denies numbness, tingling Integumentary: Denies rashes, skin lesions Endocrine: Denies fatigue, weight loss Written informed consent obtained from the patient. Risks (including but not limited to perforation, infection, bloating, bleeding, need for emergent surgeryand loss of life), benefits and alternatives explained and questions answered. The patient verbalized understanding. Based on history patient is an appropriate candidate for the procedure. Kike Bernal M.D. Documented By: Kike Bernal MD 07/24/22 1308 Signed By: <Electronically signed by Kike Bernal MD> 07/24/22 0950 [facility] Work Phone: History and physical note Author Kike Bernal [facility] April 27, 2023 11:41am Note Date/Time April 27, 2023 11:41am [facility] [address] [place] [address] Gastroenterology H&P Signed Patient: Gege Sneed MR#: [id number] : 1955 Acct:[id number] Age/Sex: 67 / M Adm Date: 3 Loc: Room: Type: [facility] Attending Dr: Kike Bernal MD Copies to: MD Dank Ralph MD~ Date of Service: 04/27/2023 HISTORY & PHYSICAL: Patient's history with special attention to the cardiovascular, pulmonary systems and the current problem was reviewed with the patient immediately prior to the procedure. Present medications and doses reviewed in the EMR. Allergies and pertinent laboratory tests were also reviewedat this time in the EMR. The physical examination, as below, was then performed. Indication, assessment and HPI: 67-year-old man with history of colonic polyps here for colonoscopy for evaluation of alternating diarrhea/constipation and hematochezia Family history of GI malignancy? No PHYSICAL EXAMINATION Mouth and Pharynx : Moist mucus membranes, normal dentition Cardiac: Regular rate, regular rhythm Pulmonary: Clear to auscultation bilaterally, no wheezing Neurological: Alert and oriented x3, no focal deficits noted Abdomen: Abdomen soft, non-tender REVIEW OF SYSTEMS Constitutional: Denies malaise, fevers Cardiovascular: Denies chest pain, palpitations Respiratory: Denies shortness of breath, wheezing Gastrointestinal: Per HPI Genitourinary: Denies dysuria, polyuria Musculoskeletal: Denies joint swelling, joint stiffness Neurological: Denies numbness, tingling Integumentary: Denies rashes, skin lesions Endocrine: Denies fatigue, weight loss Written informed consent obtained from the patient. Risks (including but not limited to perforation, infection, bloating, bleeding, need for emergent surgeryand loss of life), benefits and alternatives explained and questions answered. The patient verbalized understanding. Based on history patient is an appropriate candidate for the procedure. Kike Bernal M.D. Documented By: Kike Bernal MD 04/27/23 1139 Signed By: <Electronically signed by Kike Bernal MD> 04/27/23 1141 [facility] Work Phone: History general Narrative - Reported* Type Description Date Medical History DM II Medical History HTN Medical History GERD Medical History hyperlipidemia Medical History dementia Surgical History appendectomy Surgical History knee surgery Surgical History rotator cuff-right, three surge patricia Surgical History rotator cuff-left Surgical History tubes in ear Surgical History heel spur Hospitalization History dehydration 12/2018 Hospitalization History none in the last year 20 22 [facility] Other Hospital course Narrative No data available for this section [facility] Hospital Discharge instructions Additional Instructions DISCHARGE INSTRUCTIONS FOR UPPER ENDOSCOPY WHAT TO EXPECT: - You may feel full, gassy or cramping after your procedure. In some cases, this may be from a few hours to a day. Walking may help relieve the discomfort. - Your throat may feel sore today from the scope that the doctor passed through your throat to visualize your stomach. Take a throat lozenge or suck on ice to ease the discomfort. - You may notice some streaks of blood in your sputum if the doctor has taken a biopsy. - You should begin to recover from anesthesia within 1 hour of the procedure, however may feel groggy for the next 24 hours. DO's AND DON'Ts: - Call your doctor right away if you have a hard abdomen, severe pain, vomiting or if you cough up large amounts of blood. - Call your doctor if you develop any rashes, hives or difficulty breathing. - If you take 81 mg aspirin for your heart it is safe to resume this medication. - If you take other blood thinner medications your doctor will instruct you when these can safely be resumed. - Do NOT drive for 24 hours. - Do NOT operate machinery such as power tools, lawn mowers, snow blowers, sewing machines, etc. for 24 hours. - Avoid alcoholic beverages and drugs for allergies, nerves, or sleep. - Do NOT stay alone. Do NOT leave your child unattended. - Do NOT make important personal or business decisions or sign any legal documents. - Eat solid foods and drink liquids in smaller amounts than usual until normal appetite returns. If you should experience an upset stomach, liquids high in sugar content (soda, Jono-Aid, non-acid juices) are recommended. - Do NOT smoke. - Do take it easy today. You need not stay in bed, but avoid strenuous activities such as jogging or working out. FOLLOW UP & RECOMMENDATIONS: -Start Protonix 40 mg daily 30 minutes before breakfast -Follow-up in office after 3 months -Notify the doctor if you have any problems. -Follow up with PCP. -Office number [phone]. [facility] Work Phone: Hospital Discharge instructions No data available for this section [facility] Hospital Discharge instructions Additional Instructions DISCHARGE INSTRUCTIONS FOR COLONOSCOPY WHAT TO EXPECT: - You may feel full, gassy or cramping after your procedure. In some cases, this may be from a few hours to a day. Walking may help relieve the discomfort. - If you have polyp(s) removed you may note some minor bloody discharge after your first bowel movements. - You should begin to recover from anesthesia within 1 hour of the procedure, however may feel groggy for the next 24 hours. DO's AND DON'Ts: - Call your doctor right away if you have a hard abdomen, severe pain, are passing lots of bright red blood or clots. - Call your doctor if you develop any rashes, hives or difficulty breathing. - Let your doctor know if you have not had a bowel movement by 3 days after your procedure. - If you take 81 mg aspirin for your heart it is safe to resume this medication. - If you take other blood thinner medications your doctor will instruct you when these can safely be resumed. - Do NOT drive for 24 hours. - Do NOT operate machinery such as power tools, lawn mowers, snow blowers, sewing machines, etc. for 24 hours. - Avoid alcoholic beverages and drugs for allergies, nerves, or sleep. - Do NOT stay alone. Do NOT leave your child unattended. - Do NOT make important personal or business decisions or sign any legal documents. - Eat solid foods and drink liquids in smaller amounts than usual until normal appetite returns. If you should experience an upset stomach, liquids high in sugar content (soda, Jono-Aid, non-acid juices) are recommended. - You can resume normal activities tomorrow. FOLLOW UP & RECOMMENDATIONS: -Notify the doctor if you have any problems. -Repeat colonoscopy in 5 years -Follow up pathology -Follow up in the office as scheduled -Office number [phone]. [facility] Work Phone: Progress note No data available for this section [facility] Summary Purpose Family History Relationship Condition Age at Onset Recorded Date/T katelyn father Cerebrovascular accident (CVA) Unknown Myocardial infarction Unknown Not Specified Cerebrovascular accident (CVA) Unknown Advance Directives Advance Directive Response Recorded Date/ Time Advance Directives No October 11, 018 1:12pm Chief Complaint and Reason for Visit Chief Complaint Gerd, Dysphagia Chief Complaint Constipation, Diarrh ea, Blood in Stool Chief Complaint Constipation, Diarrh ea, Blood in Stool m47.816 Additional Source Comments (unrecognized sect ion and content) No Status Records FoundNo Status Records FoundNo Status Records FoundNo Status Records FoundNo Status Records Found INFORMATION SOURCE (unrecogn ized section and content) DATE CREATED AUTHOR 08/06/2021 [facility] DATE CREATED AUTHOR AUTHOR'S ORGANIZ ATDELROY 10/24/2022 [facility] DATE CREATED AUTHOR AUTHOR'S ORGANIZ ATION 02/13/2023 Moreno Dami[facility] DATE CREATED AUTHOR AUTHOR'S ORGANIZ ATION 06/08/2023 [facility] DATE CREATED AUTHOR AUTHOR'S ORGANIZ ATION 06/27/[address] [facility] Care Team (unrecognized sect ion and content) Team Status: Active Member Role Status Dates Dank Campo MD Primary Care Provider Active Team Status: Inactive Member Role Status Dates Dank Campo MD Primary Care Provider Active Kike Bernal MD Attending Provider Active Team Status: Inactive Member Role Status Dates Dank Campo MD Primary Care Provider, Attending Pro vider Active REASON FOR VISIT (unrecogniz ed section and content) PATIENT IS HERE FOR COMPLAIN TS OF GERD AND DIARRHEAPOSTING SHEETrefills - loperamideelectronic refill requestPT IS A FORMER HYKES PT/PAIN WHEN HAVING BOWEL MOVEMENTS UNTIL COMPLETE, SOME BLOOD IN STOOL. STOOLS ARE ALTERNATING FROM SOLID TO LIQUID ALL IN THE SAME DAY. FOR RECORDS PERTAINING TO PATIENTS WHO ARE OR HAVE BEEN ENROLLED IN A CHEMICAL DEPENDENCY/SUBSTANCEABUSE PROGRAM, SOME INFORMATION MAY BE OMITTED. This clinical summary was aggregated from multiple sources. Caution should be exercised in using it in the provision of clinical care. This summary normalizes information from multiple sources, and as a consequence, information in this document may materially change the coding, format and clinical context of patient data. In addition, data may be omitted in some cases. CLINICAL DECISIONS SHOULD BE BASED ON THE PRIMARY CLINICAL RECORDS. [employer] provides no warranty or guarantee of the accuracy or completeness of information in this document.
[2023-07-10 15:10] LABS: Anion Gap 11.9; Carbon Dioxide 28.4 mmol/L (21.0-32.0); Chloride 98 mmol/L (98-107); Potassium 5.3 mmol/L (3.5-5.1); Sodium 133 mmol/L (136-145); Thyroid Stimulating Hormone 1.891 uIU/mL (0.358-3.740)
== END 2023-07-10 14:10 | disposition home or self-care (01) ==
LOC: LAB 14:10
PROVIDERS: PCP Family Medicine
DX: R25.3 Fasciculation (principal); R41.3 Other amnesia
CPT/HCPCS: 36415; 80051; 82607; 84443

== ENCOUNTER 2023-08-15 09:01 | Outpatient (RCR) | payer MEDICARE, SELFPAY | END 2023-09-07 15:59 | disposition home or self-care (01) | LOC: PT 09:01 | PROVIDERS: PCP Family Medicine | DX: M54.16 Radiculopathy, lumbar region (principal) | CPT/HCPCS: 97110; 97140; 97163 ==

== ENCOUNTER 2023-09-04 09:32 | Outpatient (OUT) | payer MEDICARE, SELFPAY ==
--- OUTSIDE RECORDS SUMMARY | 2023-09-04 09:52 | XMS_ITS | CCD ---
Author Organization [facility] Care Team Providers Care Top And Seat Cover Fitter Name Role Phone DANK CAMPO Primary Care Physician MD Dank Campo Primary Care Provider [phone] MD Kike Bernal Attending Provider Asaad, Imad Unavailable FERNANDO ., MR FERNANDEZ Admitting Unavailable NADERER, DR DANK Leon Primary Care Unavailable KING ., MR REBECCA Attending Unavailable FERNANDO ., MR REBECCA Consulting Unavailable NICOLA ., DR WINKLER Consulting Unavailable PETERSEN ., DR WINKLER Admitting Unavailable NADERER, DR DANK Leon Primary Care Unavailable PETERSEN ., DR WINKLER Attending Unavailable NADERER, DR [...] NADERER, DR DANK Leon Primary Care Unavailable MENIFEE, DR SORIN Rodarte Consulting Unavailable NADERER, DR DANK Leon Admitting Unavailable NADERER, DR DANK Leon Attending Unavailable NADERER, DR DANK Leon Primary Care Unavailable NADERER, DR DANK Leon Consulting Unavailable Peterson PETERSEN Attending Unavailable ROSALVA MURO Attending Unavailable ROSALVA MURO Attending Unavailable DEJUAN PETERSEN Attending Unavailable JINA, ROSALVA De Luna Admitting Unavailable JINA, ROSALVA De Luna Attending Unavailable JINA, ROSALVA De Luna Admitting Unavailable JINA, ROSALVA De Luna Attending Unavailable Peterson PETERSEN Attending Unavailable MD Dank Campo Primary Care Provider MD Kike Bernal Attending Provider [phone] MD Dank Campo Attending Provider MD Dank Campo Attending Provider Jena RAYMUNDO, Dank Primary Care Provider Jena RAYMUNDO, Dank Primary Care Provider [phone] MD Dank Campo Primary Care Provider KERRI Holden Attending Provider [phone] MD Dank Campo Referring Provider GREGORIA RALPH Attending Unavailable NADERER, DANK Referring Unavailable NADERER, DANK Primary Care Unavailable GREGORIA RALPH Referring Unavailable NADERER, DANK Primary Care Unavailable GREGORIA RALPH Referring Unavailable NADERER, DANK Primary Care Unavailable DEXTER KRISHNAMURTHY Attending Unavailable CODY, ASHLI Scott Attending Unavailable CODY, ASHLI Scott Attending Unavailable JR. JOON, JOHANNE Vidales Attending Unavaila ble LAST, DEXTER Leon Attending Unavailable NADERERDANK Referring Unavailable NADERER, DANK Attending Unavailable EDD HOLEDN Attending Unavailable EDD HOLDEN Referring Unavailable RUS, DEXTER Leon Attending Unavailable EDD HOLDEN Attending Unavailable NADERERDANK Attending Unavailable Asaad, Imad Admitting Unavailable Asaad, Imad Attending Unavailable Naderer, Dank Primary Care Unavailable Naderer, Dank Primary Care Unavailable Naderer, Dank Attending Unavailable Naderer, Dank Admitting Unavailable Edd Holden Admitting Unavailable Edd Holden Attending Unavailable Naderer, Dank Primary Care Unavailable Asaad, Imad Admitting Unavailable Asaad, Imad Attending Unavailable Naderer, Dank Primary Care Unavailable Naderer, Dank Primary Care Unavailable Naderer, Dank Attending Unavailable Naderer, Dank Referring Unavailable Naderer, Dank Admitting Unavailable Naderer, Dank Primary Care Unavailable Naderer, Dank Attending Unavailable Naderer, Dank Admitting Unavailable Allergies Allergy Classification Reported Allergen(s) Allergy Type Date of Onset Reaction(s) Facility (1 source) No Known Medication Allergies; 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: [No Known Medication Allergies] Propensity to adverse reactions (disorder) [facility] Repository Medications Current Medications Medication Drug Class(es) Dates Sig (Normalized) Sig (Original) aspirin 81 mg delayed release oral tablet (13 sources) Platelet Aggregation Inhibitor, Nonsteroidal Anti-inflammatory Drug Start: 01-30-2019 take 1 tablet by mouth once daily Aspirin (Aspir-81) 81 mg Tablet,Delayed Release (Dr/Ec) Active 81 MG PO Daily January 29, 2019 11:00pm ASPIRIN 81 MG ch ewable tablet Chew 81 mg 1 (one) time each day at the same time. 0 Active baclofen 20 mg oral tablet (20 sources) gamma-Aminobutyric Acid-ergic Agonist Start: 03-31-2019 baclofen Oral, TID, Refills(s) 0 Start Date: 03/31/19 Status: Ordered Start: 01-30-2019 End: 06-25-2024 take 20 mg by mouth three times daily Baclofen Active 20 MG PO Three times daily January 29, 2019 11:00pm celecoxib 200 mg oral capsule (20 sources) Nonsteroidal Anti-inflammatory Drug Start: 03-31-2019 celecoxib Oral, Refills(s) 0 Start Date: 03/31/19 Status: Ordered Start: 01-30-2019 take 1 capsule by mo [facility] twice daily celecoxib (CeleBREX) 200 MG capsule Indications: Lumbago with sciatica, right side TAKE 1 CAPSULE BY MOUTH TWICE DAILY 60 capsule 5 07/24/2023 Active Continuous Blood Gluc Sensor (Dexcom G7 Sensor) misc (4 sources) Start: 06-05-2023 End: 06-04-2024 Continuous Blood Gluc Sensor (Dexcom G7 Sensor) mis Indications: Type 2 diabetes mellitus with diabetic polyneuropathy, with long-term current use of insulin ([facility]) Inject 1 Device under the skin See administration instructions Change every 10 days 9 each 3 06/05/2023 06/04/2024 Active Continuous Blood Gluc Sensor (FreeStyle Cornelius 2 Sensor) misc (2 sources) Start: 05-23-2023 End: 07-30-2023 Continuous Blood Gluc Sensor (FreeStyle Cornelius 2 Sensor) misc Indications: Type 2 diabetes mellitus with diabetic polyneuropathy, with long-term current use of insulin ([facility]) Use as directed 2 each 11 05/23/2023 07/30/2023 Discontinued (Therapy completed) diazePAM 5 mg oral tablet (4 sources) Benzodiazepine Start: 06-21-2023 diazePAM (Valium) 5 MG tablet Indications: Anxiety Take 1 tablet (5 mg) by mouth 1 (one) time for 1 dose Take 30 minutes prior to MRI. 2 tablet 0 06/21/2023 Active fluorometholone 1 mg/ml ophthalmic suspension (4 sources) Corticosteroid Start: 12-28-2022 take 1 drop(s) into the eye(s) four times daily, then take 1 drop(s) into the eye(s) twice daily fluorometholone (FML) 0.1 % ophthalmic suspension instill 1 (ONE) DROP IN BOTH EYES FOUR TIMES DAILY FOR 7 DAYS then instill 1 (ONE) DROP IN BOTH EYES TWICE DAILY FOR 7 DAYS 0 12/28/2022 Active fluticasone 0.05 mg/inh Nasal [place] (3 sources) Start: 07-28-2019 fluticasone 0.05 mg/inh Nasal [place] Nasal, Daily, Refill(s) 0 Start Date: 07/28/19 Status: Ordered furosemide 40 mg oral tablet (9 sources) Loop Diuretic Start: 12-18-2022 take 40 mg by mouth once daily Furosemide Active 40 MG PO Daily April 27, 2023 12:00am Furosemide Activ e 3 ml insulin glargine 100 unt/ml pen injector (13 sources) Insulin Analog Start: 08-09-2023 End: 08-08-2024 LANTUS SOLOSTAR U-100 INSULIN 100 unit/mL (3 mL) insulin pen Inject 60 Units under the skin. 0 08/09/2023 08/08/2024 Active Start: 04-27-2023 Insulin Glargi ne (Lantus Solostar U-100 Insulin) 100 unit/mL (3 mL) Insulin Pen Active 60 UNIT SUBCUT Every evening April 27, 2023 12:00am Start: 01-16-2023 End: 07-30-2023 Lantus SoloStar 100 UNIT/ML pen Indications: Type 2 diabetes mellitus with diabetic polyneuropathy, with long-term current use of insulin (CMS/[facility]) Inject 60 Units under the skin at bedtime 30 mL 3 07/30/2023 Active 3 ml insulin lispro 100 unt/ml pen injector (12 sources) Insulin Analog Start: 06-05-2023 insulin lispro (HumaLOG) 100 UNIT/ML injection Indications: Type 2 diabetes mellitus with diabetic polyneuropathy, with long-term current use of insulin ([facility]) INJECT 8-15 UNITS BREAKFAST, 20 UNITS LUNCH AND 30 UNITS DINNER PLUS CORRECTIONS OF 1:30 > 150MG/DL ( MAX 100 UNITS A DAY) 90 mL 3 06/05/2023 Active Start: 04-27-2023 inject 1 dose by sub cutaneous injection once before mealtime Insulin Lispro Active 1 sliding scale dose SUBCUT 3x/Day before meals April 27, 2023 12:00am insulin lispro ( HumaLOG) 100 unit/mL insulin pen Inject under the skin. 0 Active HumaLOG Active Insulin Lispro KwikPen 100 units/mL injectable solution (1 source) Start: 02-12-2023 Insulin Lispro KwikPen 100 units/mL injectable solution Refills(s) 0 Start Date: 02/12/23 Status: Ordered ketoconazole 20 mg/ml topical cream (1 source) Azole Antifungal Start: 08-09-2023 Ketoconazole Active APPLIC TOPICAL Twice daily August 09, 2023 12:00am lansoprazole (20 sources) Proton Pump Inhibitor Start: 03-31-2019 lansoprazole Oral, Daily, Refills(s) 0 Start Date: 03/31/19 Status: Ordered Start: 01-30-2019 take 30 mg by mouth twice daily Lansoprazole Active 30 MG PO Twice daily January 29, 2019 11:00pm Start: 01-30-2019 take 30 mg by mouth once daily Lansoprazole Active 30 MG PO Daily January 29, 2019 11:00pm lisinopril 10 mg oral tablet (20 sources) Angiotensin Converting Enzyme Inhibitor Start: 06-20-2023 take 1 tablet by mouth twice daily lisinopril 10 MG tablet Indications: Essential (primary) hypertension (CMS/HCC) TAKE 1 TABLET BY MOUTH TWICE DAILY 60 tablet 5 06/20/2023 Active Start: 03-31-2019 lisinopril Ora l, Daily, Refills(s) 0 Start Date: 03/31/19 Status: Ordered Start: 01-30-2019 take 10 mg by mouth once daily Lisinopril Active 10 MG PO Daily January 29, 2019 11:00pm take 1 tablet by maciej th in the morning, then take 1 tablet by mouth at bedtime lisinopriL (PRINIVIL,ZESTRIL) 5 mg tablet Take 1 tablet (5 mg total) by mouth in the morning and 1 tablet (5 mg total) before bedtime. 0 Active take 1 tablet by maciej th every twelve hours Lisinopril 10 MG 1 tablet Orally BID for 30 day(s) Active loperamide hydrochloride 2 mg oral capsule (11 sources) Opioid Agonist Start: 04-27-2023 take 2 mg by mouth twice daily Loperamide Active 2 MG PO Twice daily April 27, 2023 12:00am Start: 04-27-2023 End: 07-30-2023 take 2 mg by mouth every two hours Loperamide Active 2 MG PO Q2H April 27, 2023 12:00am Start: 12-10-2019 take 1 capsule by mo [facility] twice daily Loperamide HCl 2 MG 1 CAPSULE Orally twice daily for 30 days Nov, Active magnesium oxide 400 mg oral tablet (9 sources) Start: 08-09-2023 take 400 mg by mouth once daily Magnesium Oxide Active 400 MG PO Daily August 09, 2023 12:00am Start: 06-20-2023 take 1 tablet by maciej th once daily magnesium oxide (Mag-Ox) 400 (240 Mg) MG tablet Indications: Hypomagnesemia TAKE 1 TABLET BY MOUTH DAILY 30 tablet 5 06/20/2023 Active metFORMIN (15 sources) Biguanide Start: 03-31-2019 metformin Oral , Refills(s) 0 Start Date: 03/31/19 Status: Ordered Start: 01-30-2019 End: 08-15-2023 take 850 mg by mouth three times daily Metformin Discontinued 850 MG PO Three times daily January 29, 2019 11:00pm April 27, 2023 10:34am methocarbamol 750 mg oral tablet (2 sources) Muscle Relaxant Start: 06-07-2023 End: 07-30-2023 methocarbamol (Robaxin) 750 MG tablet Indications: Lumbar spondylosis Take 1 tablet (750 mg) by mouth in the morning and 1 tablet (750 mg) at noon and 1 tablet (750 mg) in the evening and 1 tablet (750 mg) before bedtime. 120 tablet 3 06/07/2023 07/30/2023 Discontinued (Therapy completed) 24 hr metoprolol succinate 25 mg extended release oral tablet (20 sources) beta-Adrenergic Nirav Start: 03-31-2019 take 1 mg by mouth once daily metoprolol 25 mg ER Tab mg tab(s), Oral, Daily, Refills(s) 0 Start Date: 03/31/19 Status: Ordered Start: 01-30-2019 take 50 mg by mouth once daily Metoprolol Succinate Active 50 MG PO Daily January 29, 2019 11:00pm take 1 tablet by maciej th every twenty-four hours in the morning metoprolol succinate XL (TOPROL-XL) 50 mg 24 hr tablet Take 1 tablet (50 mg total) by mouth in the morning. 0 Active take 1 tablet by maciej th once daily metoprolol succinate XL (TOPROL-XL) 50 mg 24 hr tablet Take 50 mg by mouth daily. 0 Active potassium chloride 20 meq oral tablet (1 source) Start: 02-12-2023 Potassium Chlo ride (Eqv-K-Tab) 20 mEq oral tablet, extended release Refills(s) 0 Start Date: 02/12/23 Status: Ordered semaglutide 14 mg oral tablet (4 sources) Start: 07-24-2022 take 1 tablet by mouth once daily Semaglutide (Rybelsus) 14 mg tablet Active 14 MG PO Daily July 24, 2022 12:00am Semaglutide (1 source) Start: 08-09-2023 Semaglutide (Ozempic) 0.25 mg or 0.5 mg (2 mg/3 mL) pen injector Active 0.25 MG SUBCUT every week August 09, 2023 12:00am takes on Sunday Semaglutide,0.25 or 0.5MG/DOS, (Ozempic, 0.25 or 0.5 MG/DOSE,) 2 MG/3ML solution pen-injector (4 sources) Start: 07-30-2023 Semaglutide,0. 25 or 0.5MG/DOS, (Ozempic, 0.25 or 0.5 MG/DOSE,) 2 MG/3ML solution pen-injector Indications: Type 2 diabetes mellitus with diabetic polyneuropathy, with long-term current use of insulin ([facility]) Inject 0.5 mg under the skin 1 (one) time per week 9 mL 3 07/30/2023 Active Simvastatin (20 sources) HMG-CoA Reductase Inhibitor Start: 03-31-2019 simvastatin Oral, Refills(s) 0 Start Date: 03/31/19 Status: Ordered Start: 01-30-2019 take 40 mg by mouth once daily in the evening Simvastatin Active 40 MG PO Every evening January 29, 2019 11:00pm spironolactone 50 mg oral tablet (8 sources) Aldosterone Antagonist Start: 04-27-2023 take 50 mg by mouth once daily Spironolactone Active 50 MG PO Daily April 27, 2023 12:00am Completed/Discontinued Medications Medication Drug Class(es) Dates Sig (Normalized) Sig (Original) [id number] 200 actuat albuterol 0.09 mg/actuat metered dose inhaler (2 sources) beta2-Adrenergic Agonist Start: 12-22-2020 End: 08-15-2023 take 2 puff(s) by inhalation every four hours as needed for wheezing albuterol (PROVENTIL HFA;VENTOLIN HFA) 90 mcg/actuation inhaler Indications: Chronic obstructive pulmonary disease, unspecified COPD type ([facility]) Inhale 2 puffs every 4 (four) hours as needed for wheezing. 18 g 11 12/22/2020 08/15/2023 Discontinued (Discontinued by another clinician) clindamycin 300 mg oral capsule (5 sources) Lincosamide Antibacterial Start: 01-28-2021 take 2 capsules by mouth every twelve hours Clindamycin HCl 300 MG 2 capsules Orally bid for 10 day(s) Jan, Not-Taking dibucaine 0.01 mg/mg rectal ointment (5 sources) Standardized Chemical Allergen Start: 12-08-2020 End: 03-14-2021 Dibucaine Discontinued 1 APPLIC MO Four times daily 56 December 07, 2020 11:00pm March 14, 2021 11:08am dicyclomine hydrochloride 20 mg oral tablet (5 sources) Anticholinergic Start: 02-11-2020 End: 12-08-2020 take 20 mg by mouth three times daily Dicyclomine Discontinued 20 MG PO Three times daily February 10, 2020 11:00pm December 08, 2020 8:09am docusate sodium 100 mg oral capsule (5 sources) Start: 12-08-2020 End: 03-14-2021 take 1 capsule by mouth once daily Docusate Sodium (Sof-Lax) 100 mg capsule Discontinued 100 MG PO Daily 60 December 08, 2020 9:33am March 14, 2021 11:08am fluticasone propionate 0.05 mg/actuat metered dose nasal spray (15 sources) Corticosteroid Start: 02-11-2020 End: 07-24-2022 Fluticasone Propionate (Flonase Allergy Relief) 50 mcg/actuation [place],Suspension Discontinued 1 SPRAY INTRANASAL Daily February 10, 2020 11:00pm July 24, 2022 12:24pm Start: 07-28-2019 fluticasone 0. 05 mg/inh Nasal [place] Nasal, Daily, Refill(s) 0 Start Date: 07/28/19 Status: Ordered Start: 06-30-2019 take 2 spray(s) nasa l route once daily fluticasone propionate (FLONASE) 50 mcg/actuation nasal spray Administer 2 sprays into each nostril daily. 15.8 mL 12 06/30/2019 Active take 1 spray(s) nasa l route once daily Flonase 50 MCG/ACT 1 spray in each nostril Nasally Once a day Not-Taking glipiZIDE 10 mg oral tablet (5 sources) Sulfonylurea Start: 01-30-2019 End: 08-18-2020 take 10 mg by mouth once daily Glipizide Discontinued 10 MG PO Daily January 29, 2019 11:00pm August 18, 2020 11:28am loratadine 10 mg oral tablet (5 sources) Start: 12-08-2020 End: 03-14-2021 take 1 tablet by mouth once daily Loratadine (Claritin) 10 mg Tablet Discontinued 10 MG PO Daily December 07, 2020 11:00pm March 14, 2021 11:08am Magnesium (5 sources) Start: 01-30-2019 End: 08-09-2023 take 400 mg by mouth once daily Magnesium Discontinued 400 MG PO Daily January 29, 2019 11:00pm August 09, 2023 11:10am Start: 01-30-2019 take 400 mg by mouth once dionisio y Magnesium Active 400 MG PO Daily January 29, 2019 11:00pm mupirocin 0.02 mg/mg topical ointment (5 sources) RNA Synthetase Inhibitor Antibacterial Mupirocin 2 % 1 application Externally bid for 10 day(s) Not-Taking oxaprozin 600 mg oral tablet (4 sources) Nonsteroidal Anti-inflammatory Drug Start: 04-27-20 End: 08-09-19 take 600 mg by mouth four times daily Oxaprozin Discontinued 600 MG PO Four times daily April 27, 2023 12:00am August 09, 2023 11:01am pantoprazole 40 mg delayed release oral tablet (5 sources) Proton Pump Inhibitor Start: 07-24-19 take 1 tablet by mouth every twenty-four hours Pantoprazole Sodium 40 MG 1 tablet Orally Once a day for 90 days Jul, Not-Taking pramoxine (5 sources) Start: 07-20-19 Pramoxine HCl 1 % 1 application to affected area as needed Externally Three times a day for 30 days Jul, Not-Taking Start: 07-20-2022 Pramoxine HCl 1 % 1 application to affected area as needed Externally Three times a day for 30 days Jul, Active pyridostigmine bromide 60 mg oral tablet (5 sources) Start: 01-30-2019 End: 08-18-2020 take 60 mg by mouth three times daily Pyridostigmine [place] Discontinued 60 MG PO Three times daily January 29, 2019 11:00pm August 18, 2020 11:30am Semaglutide (Rybelsus) 14 mg tablet (1 source) Start: 07-24-2022 End: 08-09-2023 take 1 tablet by mouth once daily Semaglutide (Rybelsus) 14 mg tablet Discontinued 14 MG PO Daily July 24, 2022 12:00am August 09, 2023 11:01am sucralfate 1000 mg oral tablet (5 sources) Aluminum Complex Start: 02-11-2020 End: 03-14-2021 take 1 g by mouth before mealtime Sucralfate Discontinued 1 GM PO before meals February 10, 2020 11:00pm March 14, 2021 11:09am tamsulosin hydrochloride 0.4 mg oral capsule (7 sources) alpha-Adrenerg ic Nirav Start: 01-30-2019 End: 03-14-2021 take 0.4 mg by mouth once daily Tamsulosin Discontinued 0.4 MG PO Daily January 29, 2019 11:00pm March 14, 2021 11:09am End: 08-15-2023 take 1 capsule by mouth twice daily tamsulosin (FLOMAX) 0.4 mg capsule Take 0.4 mg by mouth 2 (two) times a day. 0 08/15/2023 Discontinued (Discontinued by another clinician) Problems Active Problems Problem Classification Problem Date Documented Da te Episodic/Chronic Acute and unspecified renal failure (8 sources) Renal failure syndrome; 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: [Unspecified kidney failure] Onset: 9 12-04-2022 Chronic Biliary tract disease (5 sources) Common bile duct calculus; 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: [Calculus of bile duct without cholangitis or cholecystitis without obstruction] 04-04-2021 Episodic Cancer of prostate (16 sources) Malignant neoplasm of prostate; 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: [Malignant tumor of prostate] Onset: 2 Chronic Deficiency and other anemia (4 sources) Iron deficiency anemia due to blood loss; 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: [Iron deficiency anemia secondary to blood loss (chronic)] Onset: 0 12-04-2022 Chronic Deficiency and other anemia (10 sources) Iron deficiency anemia; 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: [Iron deficiency anemia, unspecified] 02-11-2020 Episodic Diabetes mellitus with complications (10 sources) Type 2 diabetes mellitus with hyperglycemia; 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: [Type 2 diabetes mellitus] Onset: 3 Chronic Diabetes mellitus without complication (18 sources) Diabetes mellitus; 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: [Type 2 diabetes mellitus without complication] Onset: 3 01-19-2019 Chronic Diabetes mellitus without complication (2 sources) Glycosuria; 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: [Glycosuria] Onset: 3 Episodic Disorders of lipid metabolism (8 sources) Hypercholesterolemia; 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: [Pure hypercholesterolemia, unspecified] Onset: 3 01-19-2019 Chronic Esophageal disorders (20 sources) Gastroesophageal reflux disease; 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: [Gastro-esophageal reflux disease without esophagitis] Onset: 3 01-30-2019 Chronic Esophageal disorders (1 source) Esophageal disorders; 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: [Gastro-esophageal reflux disease without esophagitis] Onset: 4 Essential hypertension (8 sources) Hypertensive disorder; 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: [Benign essential hypertension] Onset: 3 01-19-2019 Chronic Hemorrhoids (7 sources) Hemorrhoids; 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: [Unspecified hemorrhoids] Episodic Hyperplasia of prostate (18 sources) Benign prostatic hypertrophy with outflow obstruction; 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: [Benign prostatic hyperplasia with lower urinary tract symptoms] Onset: 7 Chronic Nausea and vomiting (1 source) Vomiting, unspecified; 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: [Vomiting, unspecified] Onset: 4 Episodic Osteoarthritis (16 sources) Arthritis of left knee; 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: [Unilateral primary osteoarthritis, left knee] Onset: 3 12-04-2022 Chronic Other aftercare (1 source) Other long term acute care registered nurse (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 therapy; 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: [OTH CONSTRUCTION ENGINEERING MANAGER CURRENT DRUG THERAPY] Onset: 3 Episodic Other and unspecified benign neoplasm (5 sources) History of polyp of colon; 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: [Personal history of colonic polyps] Episodic Other bone disease and musculoskeletal deformities (4 sources) Posterior calcaneal exostosis; 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: [Juvenile osteochondrosis of tarsus, right ankle] Onset: 3 12-04-2022 Chronic Other diseases of kidney and ureters (1 source) Urinary tract obstruction; 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: [Other obstructive and reflux uropathy] Onset: 2 Episodic Other ear and sense organ disorders (4 sources) Chronic right myringitis; 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: [Chronic myringitis, right ear] Onset: 3 12-04-2022 Chronic Other gastrointestinal disorders (5 sources) Irritable bowel syndrome with diarrhea; 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: [Irritable bowel syndrome with diarrhea] Chronic Other gastrointestinal disorders (5 sources) Acquired arteriovenous malformation; 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: [Angiodysplasia of colon with hemorrhage] 09-02-2020 Episodic Other gastrointestinal disorders (10 sources) Dysphagia; 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: [Dysphagia, unspecified] 01-30-2019 Episodic Other gastrointestinal disorders (10 sources) Diarrhea; 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: [Diarrhea, unspecified] 01-30-2019 Episodic Other gastrointestinal disorders (5 sources) Esophageal dysphagia; 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: [Dysphagia, unspecified] Episodic Other gastrointestinal disorders (5 sources) Diarrhea, unspecified; 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: [DIARRHEA UNSPECIFIED] Onset: 3 Episodic Other gastrointestinal disorders (1 source) Dysphagia, unspecified Episodic Other gastrointestinal disorders (1 source) Other specified symptoms and signs involving the digestive system and abdomen Episodic Other nervous system disorders (4 sources) Difficulty walking; 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: [Difficulty in walking, not elsewhere classified] Onset: 3 12-04-2022 Chronic Other nutritional; endocrine; and metabolic disorders (10 sources) Body mass index 30+ - obesity; 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: [Body mass index (BMI) 31.0-31.9, adult] Chronic Other nutritional; endocrine; and metabolic disorders (6 sources) Severe obesity; 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: [Morbid (severe) obesity due to excess calories] Onset: 3 07-30-2023 Chronic Other screening for suspected conditions (not mental disorders or infectious disease) (8 sources) Raised prostate specific antigen; 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: [Elevated prostate specific antigen [PSA]] Onset: 2 08-05-2021 Episodic Other upper respiratory disease (4 sources) Allergic rhinitis; 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: [Allergic rhinitis, unspecified] Onset: 3 12-04-2022 Chronic Other upper respiratory disease (4 sources) Rhinitis medicamentosa; 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: [Chronic rhinitis] Onset: 3 12-04-2022 Chronic Residual codes; unclassified (1 source) Obstructive sleep apnea syndrome; 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: [Obstructive sleep apnea (adult) (pediatric)] 08-15-2023 Chronic Residual codes; unclassified (1 source) Central sleep apnea syndrome; 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] 08-15-2023 Chronic Residual codes; unclassified (2 sources) Obstructive sleep apnea (adult) (pediatric); 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: [Obstructive sleep apnea (adult) (pediatric)] Onset: 4 Chronic Residual codes; unclassified (2 sources) Primary central sleep apnea; 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] Onset: 4 Chronic Residual codes; unclassified (1 source) Sleep apnea Onset: 4 Chronic Residual codes; unclassified (4 sources) Bilateral lower limb edema; 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: [Localized edema] Onset: 3 06-07-2023 Episodic Residual codes; unclassified (1 source) Other specified postprocedural states; 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: [Other postprocedural status] 07-24-2023 Episodic Residual codes; unclassified (1 source) Other specified postprocedural states; 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: [Other specified postprocedural states] Onset: 4 Episodic Screening and history of mental health and substance abuse codes (3 sources) Tobacco use and exposure - finding; 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: [Personal history of nicotine dependence] Onset: 4 08-15-2023 Episodic Spondylosis; intervertebral disc disorders; other back problems (5 sources) Lumbar spondylosis; 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: [Spondylosis without myelopathy or radiculopathy, lumbar region] Onset: 3 06-07-2023 Chronic Past or Other Problems Problem Classification Problem Date Documented Da te Episodic/Chronic Conditions associated with dizziness or vertigo (4 sources) Lightheadedness; 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: [Dizziness and giddiness] Onset: 11-19-2018 12-04-2022 Episodic Deficiency and other anemia (8 sources) Anemia; 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: [Anemia, unspecified] Onset: 12-04-2022 01-19-2019 Episodic Gastrointestinal hemorrhage (1 source) Melena; 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: [Melena] Onset: 04-27-2023 Episodic Genitourinary symptoms and ill-defined conditions (19 sources) Nocturia; 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: [Proteinuria] Onset: 12-04-2022 03-31-2019 Episodic Headache; including migraine (8 sources) Migraine; 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: [Migraine, unspecified, not intractable, without status migrainosus] Onset: 12-04-2022 Resolved: 06-07-2023 01-19-2019 Chronic Malaise and fatigue (4 sources) Fatigue; 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: [Other fatigue] Onset: 11-19-2018 12-04-2022 Episodic Mood disorders (4 sources) Mood disorders Onset: 06-29-2020 06-29-2020 Other aftercare (4 sources) Long-term current use of insulin; 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: [FCI (current) use of insulin] Onset: 12-04-2022 12-04-2022 Episodic Other circulatory disease (4 sources) Orthostatic hypotension; 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: [Orthostatic hypotension] Onset: 11-21-2018 12-04-2022 Episodic Other connective tissue disease (4 sources) Pain in right foot; 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: [PAIN IN RIGHT FOOT] Onset: 04-14-2022 Episodic Other connective tissue disease (4 sources) Full thickness rotator cuff tear; 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: [Complete rotator cuff tear or rupture of right shoulder, not specified as traumatic] Onset: 12-04-2022 12-04-2022 Episodic Other ear and sense organ disorders (4 sources) Bilateral hearing loss; 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: [Unspecified hearing loss, bilateral] Onset: 12-04-2022 Resolved: 06-07-2023 06-07-2023 Chronic Other nervous system disorders (4 sources) Carpal tunnel syndrome; 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: [Carpal tunnel syndrome, unspecified upper limb] Onset: 12-04-2022 Resolved: 06-07-2023 06-07-2023 Chronic Otitis media and related conditions (4 sources) Dysfunction of right eustachian tube; 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: [Unspecified Eustachian tube disorder, right ear] Onset: 12-04-2022 12-04-2022 Episodic Substance-related disorders (8 sources) Cigarette smoker ; 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: [Nicotine dependence, cigarettes, uncomplicated] Onset: 12-04-2022 Resolved: 06-07-2023 10-06-2019 Chronic Results Test Name Value Interpretation Reference Range Facility NM gastric emptying studyon 08-22-2023 NM gastric emptying study [facility] [address] Nuclear Medicine Report Signed Patient: Milad Seymour MR#: [id number] : 1955 Acct:[id number] Age/Sex: 67 / M ADM Date: 08/22/23 Loc: [place] Room: Type: [facility] Attending Dr: Kike Bernal MD Copies to: MD Shaheen Ralph Jr, DO Ordering Provider: Kike Bernal MD Date of Service: 08/22/23 [place] gastric emptying study: R11.10 - Vomiting, unspecified GASTRIC EMPTYING STUDY: CLINICAL HISTORY: Multiple vomiting episodes. TECHNIQUE: Following the oral ingestion of 1 mCi Tc 99m labeled sulfur colloid mixed with oatmeal, anterior imaging of the abdomen was performed performed but was aborted at 23 minutes by the patient. FINDINGS: Limited data given that the patient was only imaged for 23 minutes. The imaging demonstrates no evidence of complete gastric outlet obstruction with activity seen within the small bowel. There appears to be presumed gastroesophageal reflux with activity seen within the esophagus. NM/NM gastric emptying study IMPRESSION: LIMITED EXAMINATION THE PATIENT ABORTED THE SCAN AT 23 MINUTES. NO COMPLETE GASTRIC OUTLET OBSTRUCTION IS SEEN. THERE IS LIKELY GASTROESOPHAGEAL REFLUX WITH ACTIVITY SEEN WITHIN THE ESOPHAGUS DURING IMAGING. Impression dictated by: Shaheen Grimes Jr., D.OJitendra08/22/2023 12:21 PM Dictation Location: [place] [address] Transcribed By: [facility] 08/22/23 1221 Dictated By: Shaheen Grimes Jr, DO 08/22/23 1215 Signed By: 08/22/23 1221 Normal [facility] Glucose Poct Glucometerson 0 08-20-2023 Glucose [Mass/Vol] 182 mg/dL Normal [facility] Comment on above: Result Comment: [place] Glucose Reference Range is dependent on time and content of last meal. Glucose of more than 200 mg/dL in a nonstressed, ambulatory subject supports the diagnosis of Diabetes Mellitus. PERFORMED BY: [place] [address] PATHOLOGIST [employer] JEANNINE VAZQUEZ M.D. Performed By: #### G LULS #### Point of Care testing , Glucose [Mass/Vol] 227 mg/dL Normal [facility] Comment on above: Result Comment: [place] Glucose Reference Range is dependent on time and content of last meal. Glucose of more than 200 mg/dL in a nonstressed, ambulatory subject supports the diagnosis of Diabetes Mellitus. PERFORMED BY: [place] [address] PATHOLOGIST [employer] JEANNINE VAZQUEZ M.D. Performed By: #### G LULS #### Point of Care testing , XR pre/post mri xrayon 08-19 XR pre/post mri xray [facility] [address] [address] MRI Report Signed Patient: Milad Seymour MR#: [id number] : 1955 Acct:[id number] Age/Sex: 67 / M ADM Date: 08/20/23 Loc: [place] Room: Type: [facility] Attending Dr: Dank Campo MD Copies to: Dank Campo MD Ordering Provider: Dank Campo MD Date of Service: 08/20/23 MR/MR lumbar spine wo con: [id number] ([id number]) XR/XR pre/post mri xray: PRE LUMBAR MRI Lumbar Spine withoutcontrast TECHNIQUE: Multiplanar T1 and T2-weighted imaging of lumbar spine obtained without contrast. HISTORY: Lumbar pain. No injury COMPARISON: None The last fully segmented vertebral pair is operationally defined as L5/S1. POST SURGERY CHANGES: None BONE MARROW INFILTRATION: None BONE MARROW EDEMA: None BONY ALIGNMENT: Adequate bony alignment identified. SPINAL CANAL: No significant central canal narrowing. LUMBAR FRACTURE: None BONY LESIONS: 11 mm T1 and T2 bright round lesion of the LEFT posterior portion of the L2 vertebral body identified. KIDNEYS: No hydronephrosis is identified. AORTA: No aortic aneurysm is seen. CONUS MEDULLARIS : The distal spinal cord is in adequate position without abnormality. Additional findings CONJOINED NERVE ROOT: None Lower thoracic level: Unremarkable L1-2 :Unremarkable L2-3: Mild spondylosis. No disc herniation. Patent central canal. Mild posterior element hypertrophy. Mild LEFT neural foraminal narrowing. Patent RIGHT neural foramen L3-4: Mild spondylosis. Patent central canal. Posterior element hypertrophy. Mild to moderate LEFT and mild RIGHT neural foraminal narrowing L4-5: Mild spondylosis. Diffuse disc bulge. Mild central canal stenosis. Posterior element hypertrophy. Mild to moderate LEFT and mild RIGHT neural foraminal narrowing. L5-S1: Mild spondylosis. Diffuse disc bulge. Patent central canal. Posterior element hypertrophy. Patent neural foramen MR/MR lumbar spine wo con IMPRESSION: Multilevel discovertebral degenerative changes. Mild central canal narrowing. The neural foraminal narrowing as above. Pre-MRI plain film assessment: 2 views lumbar spine extensive lower lumbar facet degeneration. Mild multilevel spondylosis with endplate spurring. No compression fracture. No significant listhesis. IMPRESSION: Degenerative change. Impression dictated by: Tom Chanel M.D.08/20/2023 1:02 PM Dictation Location: [place] [address] Transcribed By: [facility] 08/20/23 1302 Dictated By: Tom Chanel DO 08/20/23 1250 Signed By: 08/20/23 1302 [facility] HbA1c (Bld) [Mass fraction]o n 07-30-2023 Interpretation and review of laboratory results [facility] - Hematology and Cell countson 07-30-2023 HbA1c (Bld) [Mass fraction] 8.9 % [facility] CT shoulder LT w conon 07-24 CT shoulder LT w con [facility] [place] [address] [place], [place] [id number] CT Scan Report Signed Patient: Milad Seymour MR#: [id number] : 1955 Acct:[id number] Age/Sex: 67 / M ADM Date: 07/24/23 Loc: XD Room: Type: [facility] CLI Attending Dr: Edd Holden PIERCING ARTIST-C Copies to: Edd Holden IRRIGATION TEACHER Ordering Provider: Edd Holden IRRIGATION TEACHER Date of Service: 07/24/23 CT/CT shoulder LT w con: M24.812 CT shoulder LT w con 07/24/2023 8:10 AM SIGNS AND SYMPTOMS: History of rotator cuff repair. Popping sensation during therapy with loss of strength in left upper extremity. Evaluate for rotator cuff tear. TECHNIQUE: Multidetector CT axial slices of the left shoulder without IV contrast. Images were obtained after a separate fluoroscopically guided arthrogram of the left shoulder. Multiplanar and 3-D reformats were performed and viewed on a separate workstation and reviewed to further define anatomy and possible pathology. CT was performed with one or more of the following dose reduction techniques: Automated exposure control, adjustment of the mA and/or kV according to patient size, or use of iterative reconstruction technique. COMPARISON: None. FINDINGS: ROTATOR CUFF AND ASSOCIATED STRUCTURES Biceps Tendon: The biceps tendon is normally situated within the bicipital groove. No complete or partial biceps tendon tear is present. Rotator cuff: There is a full-thickness tear of the supraspinatus and greatest in its medially retracted by at least 3.3 cm. The teres minor appears to be grossly intact. Subscapularis appears to be intact but is thinned suspicion for a partial thickness tear which is most likely along the bursal surface. There is narrowing of the subacromial space with unroofing of the humeral head in the rotator interval. Soft tissue anchors are noted in the humeral head consistent with previous rotator cuff repair. Musculature: There is no muscular tear, contusion, or atrophy. Bursa: No bursal effusion or thickening is seen. OSSEOUS STRUCTURES Acromioclavicular joint: There are mild degenerative changes of the acromioclavicular joint. A type 3 acromion configuration is noted. There is lateral acromial downsloping. Bones: No Hill-Sachs, reverse Hill-Sachs, or bony Bankart lesions are seen. There are no fractures or regions of abnormal bone marrow signal intensity. GLENOHUMERAL JOINT Joint: There is spurring along the inferior articular surface of the humeral head with narrowing of the glenohumeral joint space. Labrum: The labrum is not optimally evaluated but appears to be grossly intact. Other support structures: No capsular or ligamentous abnormality is seen. CT/CT shoulder LT w con IMPRESSION: 1. There is a full-thickness tear of the supraspinatus and greatest in its medially retracted by at least 3.3 cm. 2. Subscapularis appears to be intact but is thinned suspicion for a partial thickness tear which is most likely along the bursal surface. 3. There is narrowing of the subacromial space with unroofing of the humeral head in the rotator interval. 4. There is evidence of previous rotator cuff repair. 5. There are mild degenerative changes of the acromioclavicular joint. A type 3 acromion configuration is noted. There is lateral acromial downsloping. 6. There is spurring along the inferior articular surface of the humeral head with narrowing of the glenohumeral joint space. Impression dictated by: Kamran Chavira M.D.07/24/2023 1:48 PM Dictation Location: [place] [address] Transcribed By: [facility] 07/24/23 1348 Dictated By: Kamran Chavira II, MD 07/24/23 1336 Signed By: 07/24/23 1348 Normal [facility] [place] guided needle placementon 07-24-2023 FL guided needle placement [facility] [place] [address] [place], [place] [id number] Fluoroscopy Report Signed Patient: Milad Seymour MR#: [id number] : 1955 Acct:[id number] Age/Sex: 67 / M ADM Date: 07/24/23 Loc: XD Room: Type: [facility] CLI Attending Dr: Edd Holden PIERCING ARTIST-C Copies to: Edd Holden IRRIGATION TEACHER Ordering Provider: Edd Holden IRRIGATION TEACHER Date of Service: 07/24/23 FL/FL guided needle placement: m24.812 FL guided needle placement 07/24/2023 9:10 AM SIGNS AND SYMPTOMS: History of previous rotator cuff repair. Popping sensation in left shoulder with loss of strength in left arm CONTRAST: 2 mL of Isovue-M 200 as well as 13 mL of a solution of normal saline and Isovue-200 INFORMED CONSENT: Reason for procedure was discussed with the patient. The procedure expectations risks benefits options and alternatives were discussed. All the questions were answered. The patient understood the results cannot be guaranteed. The procedure is indicated and risks were acceptable. Consent was obtained. PROCEDURE: The left glenohumeral joint was visualized fluoroscopically. The skin was marked over the glenohumeral joint space along the medial margin of the humeral head. The skin was prepped and draped in a sterile manner. 8 mL of lidocaine 2% without epinephrine were used for local anesthesia. A 20-gauge spinal needle was introduced into the glenohumeral joint space. 2 mL of Isovue-M 200 were injected to confirm intra-articular location. A total of 13 mL of a solution of Isovue-M 200 and normal saline was then injected under fluoroscopic visualization. The patient tolerated the procedure well. No immediate complications were detected. Fluoroscopic images demonstrate bone anchors consistent with previous rotator cuff repair. FL/FL guided needle placement IMPRESSION: Successful fluoroscopically guided left shoulder arthrogram with CT to follow. Impression dictated by: Kamran Chavira M.D.07/24/2023 12:39 PM Dictation Location: [place] [address] Transcribed By: [facility] 07/24/23 1239 Dictated By: Kamran Chavira II, MD 07/24/23 1231 Signed By: 07/24/23 1239 [facility] Glucose Glucometer (BldC) [M ass/Vol]Ordered By: Kike Bernal on 04-27-2023 Glucose [Mass/Vol] 189 mg/dL [facility] Comment on above: Random Glucose Refer ence Range is dependent on time and content of last meal. Glucose of more than 200 mg/dL in a nonstressed, ambulatory subject supports the diagnosis of Diabetes Mellitus. Glucose Poct Glucometerson 1 06-27-2022 Commemt1 Glu2: Cleaned Meter Normal [facility] Comment on above: Result Comment: PERF ORMED BY: [facility] [place] [address] PATHOLOGIST [employer] JEANNINE VAZQUEZ M.D. Performed By: #### G LULS #### Point of Care testing , Glucose [Mass/Vol] 189 mg/dL Normal [facility] Comment on above: Result Comment: [place] Glucose Reference Range is dependent on time and content of last meal. Glucose of more than 200 mg/dL in a nonstressed, ambulatory subject supports the diagnosis of Diabetes Mellitus. Performed By: #### G LUCI #### Point of Care testing , William 04-27-2023 L ------ Specimen: [id number] Received: 04/27/23 Status: MASSIEL Junior Num: [id number] Spec Type: Surgical Subm Dr: Kike Bernal MD Tissues: A Colon Biopsy (RANDOM COLON) Procedures: HE/2, Gross/Micro L4 Age/ Patient Sex Location Account Attending Physician Milad Seymour 67/M [id number] Kike Bernal MD SPEC NUM: [id number] RECD: 04/27/23 STATUS: MASSIEL HOLLOWAY NUM: [id number] KURT: 04/27/23 DR: Kike Bernal MD ENTERED: 04/27/23 [facility] DR: VERA TYPE: Surgical DEPT: S ORDERED: [...] microscopic examination confirms the diagnosis. CPT Codes 70182 Specimen: [id number] Received: 04/27/23-124 Status: MASSIEL Holloway Num: [id number] Spec Type: Surgical Subm Dr: Kike Bernal MD Tissues: A Colon Biopsy (RANDOM COLON) Procedures: HE/2, Gross/Micro L4 Patient: Mliad Seymour [id number] (Continued) Signed (signature on file) Kaushal Magana MD 04/30/23 1325 Normal [facility] No Panel InformationOrdered By: Kike Bernal on 04-27-2023 Bedside Glucose Comment Glu2: cleaned meter [facility] Patient Educationon 02-13-20 Patient Education Oncology Prostate [...] likelihood that the cancer will spread. ? Rosalina 6 or lower: This indicates that the cancer cells look similar to normal prostate cells (well differentiated). ? Rosalina 7: This indicates that the cancer cells look somewhat similar to normal prostate cells (moderately differentiated). ? Armbrust 8, 9, or 10: This indicates that [...] external be (more content not included)... Normal [facility] Reminderson 02-12-2023 Reminders - From: Johnaa Reeves To: EU - Recalls Petersen; Sent: 02/12/2023 17:56:32 EDT Show up: 01/13/2024 17:56:00 EDT Subject: PSA prior to appt Reminder Message Please Remember to:_have pt get PSA done prior to appt in 1 year. Normal [facility] Urology Office/Clinic Noteon 02-12-2023 Urology Office/Clinic Note Chief Complaint 1yr PSA HPI Staff 1yr PSA DX: Prostate Cancer & BPH *S/P ERBT 01/16/20 PSA 02/06/23- 0.4 Denies all urinary complaints. No concerns at this time. History of Present Illness Tests reviewed: reviewed UA, PSA I have reviewed the previous health record information and history for this patient from Dr. Petersen. I have reviewed and verified the staff [...] Follow-up With When Contact Information NICOLA RAYMUNDO, Peterson Owens, URL [facility] [address], [place] [address] [phone] Additional Instructions: 1 yr w/ PSA Patient Education Prostate Cancer I, Johana Reeves, personally scribed for Dr. Petersen on 02/12/2023 10:14:09. . Documentation recorded by the scribe, Johana Reeves, accurately reflects the services(s) I performed and decisions made by me. Authenticated by Dr. Petersen on 02/12/2023 10:15:03. Problem List/Past Medical History [...] TID celecoxib, Oral fluticasone 0.05 mg/inh Nasal [place], Nasal, Daily Insulin Lispro KwikPen 100 units/mL [...] used for this result was chemiluminescence using [employer] PSA reagent. PSA Total 0.5 ng/mL 11/28/2022 11:31 EDT The concentration of P (more content not included)... Normal [facility] Comment on above: Result Comment: Elec tronically Signed By: Peterson PETERSEN MD\.br\Date and Time Signed: 02/12/23 10:15 EDT\.br\Electronically Co-Signed By: Johana Reeves\.br\Date and Time Co-Signed: 02/12/23 10:14 EDT Ambulatory Visit Summaryon 0 02-06-2023 Ambulatory Visit Summary MILAD SEYMOUR :1955 Visit Date:02/06/2023 Ambulatory Visit Instructions Your Diagnosis Prostate cancer Your Care Team Attending Physician - DJEUAN PETERSEN MD Primary Care Physician - DANK CAMPO MD This Is Your Medications List aspirin (aspirin 81 mg Oral EC Tab) baclofen celecoxib fluticasone nasal (fluticasone 0.05 mg/inh Nasal [place]) lansoprazole lisinopril metformin metoprolol (metoprolol 25 mg ER Tab) simvastatin Procedures Performed Laparoscopic cholecystectomy (03/2021), Radiation (01/16/2020), Transrectal biopsy of prostate using ultrasound (US) guidance (09/23/2019), Transrectal biopsy of prostate using ultrasound (US) guidance (09/03/2018), Appendectomy, Colonoscopy, Tonsillectomy. What to do next Scheduled Follow-Up Appointments Sunday 9:15 AM EDT With: NICOLA RAYMUNDO, Peterson Owens Where: [facility] CHEMISTRYOrdered By: SYSTEM SYSTEM on 02-06-2023 Prostate specific Ag [Mass/Vol] 0.4 ng/mL Normal 0.1 - 3.5 ng/mL [facility] Remisol PSA Totalon 02-06-2023 Prostate specific Ag [Mass/Vol] 0.4 ng/mL Normal 0.1-3.[address] [facility] Comment on above: Result Comment: The concentration of PSA determined by different manufacturers can vary due to differences in assay methods and reagent specificity. Values obtained from different assay methods cannot be used interchangeably. The methodology used for this result was chemiluminescence using [employer] PSA reagent. Performed By: #### 1 [id number] #### [facility] [address] [place] [address] PSA Totalon 11-28-2022 Prostate specific Ag [Mass/Vol] 0.5 ng/mL Normal 0.1-3.[address] [facility] Comment on above: Result Comment: The concentration of PSA determined by different manufacturers can vary due to differences in assay methods and reagent specificity. Values obtained from different assay methods cannot be used interchangeably. The methodology used for this result was chemiluminescence using [employer] PSA reagent. Performed By: #### 1 [id number] #### [facility] [address] [place] [address] PANCREATIC ELASTASE FECALon 09-24-2022 Pancreatic Elastase, Fecal 467 ug Elast./g Normal >[address] [facility] Comment on above: Result Comment: Nicolle re Pancreatic Insufficiency: <100 Moderate Pancreatic Insufficiency: 100 - 200 Normal: >200 Performed By: #### C PEPT #### [facility] [address] [place] [address] [address] Stewart De La Cruz POTASSIUM, FECALon 3 Potassium, Stool 57 mmol/L Normal [facility] Comment on above: Result Comment: INTE RPRETIVE INFORMATION: Fecal Potassium A reference interval has not been established for fecal specimens. This test was developed and its performance characteristics determined by [employer]. It has not been cleared or approved by the [place] Food and Drug Administration. This test was performed in a CLIA certified laboratory and is intended for clinical purposes. Performed By: #### C PEPT #### [facility] [address] [place] [address] Dr. Stewart De La Cruz SODIUM, FECALon 09-17-2022 Sodium, Stool 65 mmol/L Normal [facility] Comment on above: Result Comment: INTE RPRETIVE INFORMATION: Fecal Sodium A reference interval has not been established for fecal specimens. This test was developed and its performance characteristics determined by [employer]. It has not been cleared or approved by the [place] Food and Drug Administration. This test was performed in a CLIA certified laboratory and is intended for clinical purposes. Performed By: #### F ECALN #### [facility] [address] [place] [address] Dr. Stewart De La Cruz CALPROTECTIN, FECALon 2022 Calprotectin, Fecal 43 ug/g Normal 0-120 [facility] Comment on above: Result Comment: Conc entration Interpretation Follow-Up <16 - 50 ug/g Normal None >50 -120 ug/g Borderline Re-evaluate in 4-6 weeks >120 ug/g Abnormal Repeat as clinically indicated Performed By: #### C PEPT #### [facility] [address] [place] [address] Dr. Stewart De La Cruz C-PEPTIDE, SERUMon 3 C-Peptide, Serum 6.5 ng/mL Critically high 1.1-4.[address] [facility] Comment on above: Result Comment: C-Pe ptide reference interval is for fasting patients. Performed By: #### C PEPT #### [facility] [address] [place] [address] Dr. Stewart De La Cruz HIV 1 AND 2 WITH REFLEXon HIV Screen 4th Generation wRfx Non-Reactive Normal Non Reactive [facility] Comment on above: Result Comment: HIV Negative HIV-1/HIV-2 antibodies and HIV-1 p24 antigen were NOT detected. There is no laboratory evidence of HIV infection. Performed By: #### C PEPT #### [facility] [address] [place] [address] Dr. Stewart De La Cruz INSULINon 09-13-2022 Insulin 13.9 uIU/mL Normal 2.6-24.9 [facility] Comment on above: Performed By: #### C PEPT #### [facility] [address] [place] [address] Dr. Stewart De La Cruz POTASSIUM, FECALon 3 Potassium, Stool QNSMT Normal [facility] Comment on above: Result Comment: Test not performed. One specimen was submitted with requests for multiple tests. The requested testing requires a separate specimen for each test requested. contacted Keesha at your facility on 09-13-2022 Performed By: #### C PEPT #### [facility] [address] [place] [address] Dr. Stewart De La Cruz SODIUM, FECALon 09-13-2022 Sodium, Stool QNSMT Normal [facility] Comment on above: Result Comment: Test not performed. One specimen was submitted with requests for multiple tests. The requested testing requires a separate specimen for each test requested. contacted Keesha at your facility on 09-13-2022 Performed By: #### F ECALN #### [facility] [address] [place] [address] Dr. Stewart De La Cruz CBC AUTO DIFFon 09-12-2022 BASO # 0.1 103/ul Normal 0.0-0.1 [facility] Comment on above: Performed By: #### C PEPT #### [facility] [address] [place] [address] Dr. Stewart De La Cruz Basophils/100 WBC (Bld) 1.2 % Normal 0.2-2.[address] [facility] Comment on above: Performed By: #### C PEPT #### [facility] [address] [place] [address] Dr. Stewart De La Cruz EO # 0.3 103/ul Normal 0.0-0.7 [facility] Comment on above: Performed By: #### C PEPT #### [facility] [address] [place] [address] Dr. Stewart De La Cruz Eosinophils/100 WBC (Bld) 4.5 % Normal 0.9-7.[address] [facility] Comment on above: Performed By: #### C PEPT #### [facility] [address] [place] [address] Dr. Stewart De La Cruz Erythrocyte distribution width (RBC) [Ratio] 12.9 % Normal 11.0-15.0 [facility] Comment on above: Performed By: #### C PEPT #### [facility] [address] [place] [address] Dr. Stewart De La Cruz Hematocrit (Bld) [Volume fraction] 44.6 % Normal 42.0-54.0 [facility] Comment on above: Performed By: #### C PEPT #### [facility] [address] [place] [address] Dr. Stewart De La Cruz Hemoglobin (Bld) [Mass/Vol] 14.9 g/dL Normal 14.0-18.0 [facility] Comment on above: Performed By: #### C PEPT #### [facility] [address] [place] [address] Dr. Stewart De La Cruz IG # 0.03 10e3/ul Normal 0.00-0.03 [facility] Comment on above: Performed By: #### C PEPT #### [facility] [address] [place] [address] Dr. Stewart De La Cruz IG % 0.5 % Normal 0.0-0.[address] [facility] Comment on above: Performed By: #### C PEPT #### [facility] [address] [place] [address] Dr. Stewart De La Cruz LYMPH # 1.1 103/ul Critically low 1.2-3.8 [facility] Comment on above: Performed By: #### C PEPT #### [facility] [address] [place] [address] Dr. Stewart De La Cruz Lymphocytes/100 WBC (Bld) 18.5 % Critically low 20.5-60.0 [facility] Comment on above: Performed By: #### C PEPT #### [facility] [address] [place] [address] Dr. Stewart De La Cruz MANUAL DIFF REQ NO Normal [facility] Comment on above: Performed By: #### C PEPT #### [facility] [address] [place] [address] Dr. Stewart De La Cruz MCH (RBC) [Entitic mass] 29.2 pg Normal 25.9-34.0 [facility] Comment on above: Performed By: #### C PEPT #### [facility] [address] [place] [address] Dr. Stewart De La Cruz MCHC (RBC) [Mass/Vol] 33.4 g/dL Normal 29.9-35.2 [facility] Comment on above: Performed By: #### C PEPT #### [facility] [address] [place] [address] Dr. Stewart De La Cruz MCV (RBC) [Entitic vol] 87.5 fL Normal 80.0-94.0 [facility] Comment on above: Performed By: #### C PEPT #### [facility] [address] [place] [address] Dr. Stewart De La Cruz MONO # 0.4 103/ul Normal 0.3-0.8 [facility] Comment on above: Performed By: #### C PEPT #### [facility] [address] [place] [address] Dr. Stewart De La Cruz Monocytes/100 WBC (Bld) 6.8 % Normal 1.7-12.0 [facility] Comment on above: Performed By: #### C PEPT #### [facility] [address] [place] [address] Dr. Stewart De La Cruz NEUT # 4.2 103/ul Normal 1.4-6.[address] [facility] Comment on above: Performed By: #### C PEPT #### [facility] [address] [place] [address] Dr. Stewart De La Cruz Neutrophils/100 WBC (Bld) 68.5 % Normal 43.0-75.0 [facility] Comment on above: Performed By: #### C PEPT #### [facility] [address] [place], [place] [id number] Dr. Stewart De La Cruz Platelet mean volume (Bld) [Entitic vol] 9.8 fL Normal 9.5-13.5 [facility] Comment on above: Performed By: #### C PEPT #### [facility] [address] [place] [address] Dr. Stewart De La Cruz PLT 133 103/ul Critically low 150-[address] [facility] Comment on above: Performed By: #### C PEPT #### [facility] [address] [place] [address] Dr. Stewart De La Cruz RBC 5.10 106/ul Normal 4.70-6.10 [facility] Comment on above: Performed By: #### C PEPT #### [facility] [address] [place] [address] Dr. Stewart De La Cruz WBC 6.1 103/ul Normal 4.0-11.0 [facility] Comment on above: Performed By: #### C PEPT #### [facility] [address] [place] [address] Dr. Stewart De La Cruz CRPon 09-12-2022 CRP [Mass/Vol] mg/L Normal <=1.[address] [facility] Comment on above: Performed By: #### C RP #### [facility] [address] [place] [address] Dr. Stewart De La Cruz GLYCOHEMOGLOBIN A1Con 2022 ADA RECOMMENDATION SEE BELOW Normal [facility] Comment on above: Result Comment: ADA RECOMMENDED LIMIT 4.0 - 6.0 ADA THERAPEUTIC TARGET < 7.0 ACTION SUGGESTED > 7.0 Performed By: #### A 1C #### [facility] [address] [place] [address] Dr. Stewart De La Cruz Glucose [Mass/Vol] 278 mg/dL Normal [facility] Comment on above: Performed By: #### A 1C #### [facility] [address] [place] [address] Dr. Stewart De La Cruz HbA1c (Bld) [Mass fraction] 11.3 % Critically high 4.5-6.2 [facility] Comment on above: Performed By: #### A 1C #### [facility] [address] [address] [address] Stewart De La Cruz PROF CHEM 8 (BAS METB)on Anion gap [Moles/Vol] 16.9 mmol/L Normal [facility] Comment on above: Performed By: #### C PEPT #### [facility] [address] [place] [address] Dr. Stewart De La Cruz Calcium [Mass/Vol] 9.3 mg/dL Normal 8.5-10.1 [facility] Comment on above: Performed By: #### C PEPT #### [facility] [address] [place] [address] Dr. Stewart De La Cruz Chloride [Moles/Vol] 103 mmol/L Normal 98-107 [facility] Comment on above: Performed By: #### C PEPT #### [facility] [address] [place] [address] Dr. Stewart De La Cruz CO2 [Moles/Vol] 26.0 mmol/L Normal 21.0-32.0 [facility] Comment on above: Performed By: #### C PEPT #### [facility] [address] [place] [address] Dr. Stewart De La Cruz Creatinine [Mass/Vol] 1.43 mg/dL Critically high 0.70-1.30 [facility] Comment on above: Performed By: #### C PEPT #### [facility] [address] [place] [address] Dr. Stewart De La Cruz EGFR-AF PERUVIAN 60 mL/min/1.73m2 Normal >=[address] [facility] Comment on above: Performed By: #### C PEPT #### [facility] [address] [place] [address] Dr. Stewart De La Cruz EGFR-NON AF PERUVIAN 49 mL/min/1.73m2 Critically low >=60 [facility] Comment on above: Performed By: #### C PEPT #### [facility] [address] [place] [address] Dr. Stewart De La Cruz Glucose [Mass/Vol] 293 mg/dL Critically high 74-106 [facility] Comment on above: Performed By: #### C PEPT #### [facility] [address] [address] [address] Stewart De La Cruz Potassium [Moles/Vol] 4.9 mmol/L Normal 3.5-5.1 [facility] Comment on above: Performed By: #### C PEPT #### [facility] [address] [address] [address] Stewart De La Cruz Sodium [Moles/Vol] 141 mmol/L Normal 136-[address] [facility] Comment on above: Performed By: #### C PEPT #### [facility] [address] [address] [address] Stewart De La Cruz Urea nitrogen [Mass/Vol] 32.0 mg/dL Critically high 7.0-18.0 [facility] Comment on above: Performed By: #### C PEPT #### [facility] [address] [address] [address] Stewart De La Cruz Urea nitrogen/Creatinine [Mass ratio] 22.4 mg/mg Normal [facility] Comment on above: Performed By: #### C PEPT #### [facility] [address] [address] [address] Stewart De La Cruz [facility] SED RATE 17 mm/hr Normal <=20 [facility] Comment on above: Performed By: #### S EDR #### [facility] [address] [address] [address] Stewart De La Cruz RAD EGD - documentation only do not orderon 07-25-2022 RAD EGD - documentation only do not order [employer] Other Glucose Glucometer (dC) [M ass/Vol]Ordered By: Imad Asaad on 07-24-2022 Glucose [Mass/Vol] 275 mg/dL [facility] Comment on above: Random Glucose Refer ence Range is dependent on time and content of last meal. Glucose of more than 200 mg/dL in a nonstressed, ambulatory subject supports the diagnosis of Diabetes Mellitus. GLYCOHEMOGLOBIN A1Con 2021 ADA RECOMMENDATION SEE BELOW Normal [facility] Comment on above: Result Comment: ADA RECOMMENDED LIMIT 4.0 - 6.0 ADA THERAPEUTIC TARGET < 7.0 ACTION SUGGESTED > 7.0 Performed By: #### A 1C #### [facility] [address] [place] [address] Dr. Stewart De La Cruz Glucose [Mass/Vol] 235 mg/dL Normal [facility] Comment on above: Performed By: #### A 1C #### [facility] [address] [place] [address] Dr. Stewart De La Cruz HbA1c (Bld) [Mass fraction] 9.8 % Critically high 4.5-6.2 [facility] Comment on above: Performed By: #### A 1C #### [facility] [address] [place] [address] Dr. Stewart De La Cruz GLYCOHEMOGLOBIN A1Con 2021 ADA RECOMMENDATION SEE BELOW Normal [facility] Comment on above: Result Comment: ADA RECOMMENDED LIMIT 4.0 - 6.0 ADA THERAPEUTIC TARGET < 7.0 ACTION SUGGESTED > 7.0 Performed By: #### A 1C #### [facility] [address] [place] [address] Dr. Stewart De La Cruz Glucose [Mass/Vol] 197 mg/dL Normal [facility] Comment on above: Performed By: #### A 1C #### [facility] [address] [place] [address] Dr. Stewart De La Cruz HbA1c (Bld) [Mass fraction] 8.5 % Critically high 4.5-6.2 [facility] Comment on above: Performed By: #### A 1C #### [facility] [address] [place] [address] Dr. Stewart De La Cruz PSA, FREE AND TOTAL RATIOon 01-28-2022 % Free PSA 30.0 % Normal [facility] Comment on above: Result Comment: The [...] men. Performed By: #### P SAFREE #### [facility] [address] [place] [address] Dr. Stewart De La Cruz Prostate specific Ag [Mass/Vol] 0.1 ng/mL Normal 0.0-4.0 [facility] Comment on above: Result Comment: Nina CARBONEIA methodology. . According to the [place] [employer], Serum PSA should decrease and [...] disease. Performed By: #### P SAFREE #### [facility] [address] [place] [address] Dr. Stewart De La Cruz PSA, Free 0.03 ng/mL Normal N/A [facility] Comment on above: Result Comment: Nina PUCKETT methodology. Performed By: #### P SAFREE #### [facility] [address] [place] [address] Dr. Stewart De La Cruz GLYCOHEMOGLOBIN A1Con 2021 ADA RECOMMENDATION SEE BELOW Normal [facility] Comment on above: Result Comment: ADA RECOMMENDED LIMIT 4.0 - 6.0 ADA THERAPEUTIC TARGET < 7.0 ACTION SUGGESTED > 7.0 Performed By: #### A 1C #### [facility] [address] [place] [address] Dr. Stewart De La Cruz Glucose [Mass/Vol] 192 mg/dL Normal [facility] Comment on above: Performed By: #### A 1C #### [facility] [address] [place] [address] Dr. Stewart De La Cruz HbA1c (Bld) [Mass fraction] 8.3 % Critically high 4.5-6.2 [facility] Comment on above: Performed By: #### A 1C #### [facility] [address] [place] [address] Dr. Stewart Cruz 02-01-2021 CNOV Office Visit (RADTSA ) -- MILAD SEYMOUR ([id number]) 1955 M Date Time Provider Department 02/01/21 3:15 PM Fawad DIAZ During your visit today, we recorded the following information about you: Temperature Pulse Respiration Blood pressure 97 degrees 75/minute 16/minute 125/64 Weight 102.5 kg Tila Herrera LPN 02/01/2021 3:08 PM Signed AUA= 2 G Kurt Diaz MD 02/03/2021 9:48 AM Signed Radiation Oncology - Follow Up Note PATIENT NAME: Milad Seymour PATIENT DIAGNOSIS: DIAGNOSIS: Prostate adenocarcinoma, initial PSA [...] ASSESSMENT/PLAN:DIAGNOSIS: Prostate adenocarcinoma, initial PSA 14.65, biopsy Rosalina [...] 6 months repeat PSA. Signed by: Fawad Diaz MD cc: Dank Campo MD ([facility]) [address] [place] [address] Dr. Petersen Portions of the above note extracted and edited from previous visit as well as active information included in the EMR. Referring Provider: Fawad DIAZ [[id number]] Allergies As of Date: 02/01/2021 (No Known Allergies) Date Reviewed: 02/01/2021 Reviewed by: Tila Herrera LPN - Fully Assessed Reason for Visit: Prostate Cancer [590] Primary Visit Diagnosis:Malignant neoplasm of prostate (HCC) [C61] Order(s):PSA/PROSTSPECAG DIAG [SQPSA] Order #: [id number] FUTURE Prescriptions as of 02/03/2021 - aspirin, [...] magnesium) t (more content not included)... Normal [facility] PSA, Diagnosticon 01-25-2021 PSA, Diagnostic 0.29 ng/mL Normal 0.00-2.59 [facility] Comment on above: Result Comment: Sandra manzo PSA test methodology used is the Electrochemiluminescence Immunoassay. Performed By: #### P SA #### [facility] [address] [place] [address] OBSOLETEon 12-22-2020 OBSOLETE Refill (RADTSA) -- MILAD SEYMOUR ([id number]) 1955 M Date Time Provider Department 12/22/20 Fawad DIAZ During your visit today, we recorded the following information about you: Allergies As of Date: 12/22/2020 (No Known Allergies) Date Reviewed: 11/03/2020 Reviewed by: Fawad Diaz MD - Fully Assessed Reason for Visit: [...] Encounter Status:Closed by TILA HERRERA on 01/04/21 [facility] CNOVon 11-03-2020 CNOV Office Visit (RADTSA ) -- MILAD SEYMOUR ([id number]) 1955 M Date Time Provider Department 11/03/20 4:00 PM LAB/PORT RADT ADAM COCHARN During your visit today, we recorded the following information about you: Referring Provider: Fawad DIAZ [[id number]] Allergies As of Date: 11/03/2020 (No Known Allergies) Date Reviewed: 11/03/2020 Reviewed by: Fawad Diaz MD - Fully Assessed Reason for Visit: [...] Status:Closed by TILA HERRERA on 11/03/20 Normal [facility] Office Visit (RADTSA ) -- LIONMILAD Dalal ([id number]) 1955 M Date Time Provider Department 11/03/20 4:00 PM Fawad DIAZ During your visit today, we recorded the following information about you: Temperature Pulse Respiration Blood pressure 97.5 degrees 61/minute 18/minute 145/62 Weight 103 kg Tila Herrera LPN 11/03/2020 4:11 PM Signed AUA=11 Fawad Diaz MD 11/04/2020 9:44 AM Signed Radiation Oncology - Follow Up Note PATIENT NAME: Milad Seymour PATIENT DIAGNOSIS: DIAGNOSIS: Prostate adenocarcinoma, initial PSA 14.65, biopsy Armbrust score 3 + 3 = 6 (grade [...] ASSESSMENT/PLAN:DIAGNOSIS: Prostate adenocarcinoma, initial PSA 14.65, biopsy Armbrust score 3 + 3 = 6 (grade [...] the fall for follow-up. Signed by: Fawad Diaz MD cc: Dank Campo MD ([facility]) [address] [place] [address] Dr. Petersen Referring Provider: Fawad DIAZ [[id number]] Allergies As of Date: 11/03/2020 (No Known Allergies) Date Reviewed: 11/03/2020 Reviewed by: Fawad Diaz MD - Fully Assessed Reason for Visit: Prostate Cancer [590] Primary Visit Diagnosis:Malignant neoplasm of prostate (HCC) [C61] Order(s):PSA/PROSTSPECAG DIAG [SQPSA] Order #: [id number] FUTURE Prescriptions as of 11/03/2020 Sig: TAMSULOSIN [...] 30 mg (more content not included)... Normal [facility] PSA, Diagnosticon 11-01-2020 PSA, Diagnostic 0.27 ng/mL Normal 0.00-2.59 [facility] Comment on above: Result Comment: Sandra anais PSA test methodology used is the Electrochemiluminescence Immunoassay. Performed By: #### P SA #### [facility] [address] [address] [facility] MILAD SEYMOUR ([id number]) 1955 M Date Time Provider Department 10/29/20 Fawad DIAZ During your visit today, we recorded the following information about you: Tila Herrera LPN 10/29/2020 1:53 PM Signed Milad called requesting to move up his follow up with Dr. Diaz from January due to urinary urgency and frequency. He states Dr. Diaz increased his Flomax to twice per day in May and he has not noticed any change. He said he is urinating every two hours. He denies burning or pain with urination. He has not continued follow up with Dr. Petersen since completing radiation therapy. Call transferred to [facility] to move up appointment. Dr. Diaz, 07/27/20 PSA 0.41 do you want another PSA [...] (HCC) [C61] Order(s):PSA/PROSTSPECAG DIAG [SQPSA] Order #: [id number] FUTURE Prescriptions as of 10/29/2020 Sig: TAMSULOSIN [...] Encounter Status:Closed by TILA HERRERA on 10/29/[address] [facility] 10-08-2020 [facility] Telephone (HEMASA) -- MILAD SEYMOUR ([id number]) 1955 M Date Time Provider Department 10/08/20 HEATHER BARRIGA During your visit today, we recorded the following information about you: Allergies As of Date: 10/08/2020 (No Known Allergies) Date Reviewed: 07/14/2020 Reviewed by: Joann Richardson - Fully Assessed Reason for Visit: Lab Orders [1688] Primary Visit Diagnosis:Iron deficiency anemia due to chronic blood loss [D50.0] Order(s):CBC + DIFF (FOR REMOTE [facility] USE) [SQRCBCDF] Order #: [id number] FUTURE COMP METABOLIC PANEL [SQCMP] Order #: [id number] FUTURE Prescriptions as of 10/08/2020 Sig: TAMSULOSIN [...] Encounter Status:Closed by TASHA GOOD on 10/14/20 [facility] OBSOLETEon 09-20-2020 OBSOLETE Refill (RADTSA) -- MILAD SEYMOUR ([id number]) 1955 M Date Time Provider Department 09/20/20 Fawad DIAZ During your visit today, we recorded the [...] Status:Closed by TILA HERRERA on 10/14/20 [facility] Vital Signs Date Time Vital Sign Value Performing Clinician Facility 08-15-2023 13:35-0500 Diastolic blood pressure 60 mm[Hg] Gregoria Ralph APRN-IRRIGATION TEACHER Work Phone: [facility] 08-15-2023 13:35-0500 Systolic blood pressure 107 mm[Hg] Gregoria Ralph ICE CREAM FREEZER-IRRIGATION TEACHER Work Phone: [facility] 08-15-2023 13:33-0500 Body height 175.3 cm Gregoriamyah Ralph ICE CREAM FREEZER-IRRIGATION TEACHER Work Phone: [facility] 08-15-2023 13:33-0500 Body mass index (BMI) [Ratio] 36.77 kg/m2 Gregoriamyah Ralph ICE CREAM FREEZER-IRRIGATION TEACHER Work Phone: [facility] 08-15-2023 13:33-0500 Body weight 112.95 kg Gregoriamyah Ralph ICE CREAM FREEZER-IRRIGATION TEACHER Work Phone: [facility] 08-15-2023 13:33-0500 Heart rate 81 /min Gregoriamyah Ralph ICE CREAM FREEZER-IRRIGATION TEACHER Work Phone: [facility] 08-15-2023 13:33-0500 SaO2% (BldA) [Mass fraction] 95 % Gregoriamyah Ralph ICE CREAM FREEZER-IRRIGATION TEACHER Work Phone: [facility] 07-30-2023 11:16-0500 Body height 177.8 cm Ashli Petznick DO Work Phone: [facility] 07-30-2023 11:16-0500 Body mass index (BMI) [Ratio] 36.16 kg/m2 Ashli Petznick DO Work Phone: [facility] 07-30-2023 11:16-0500 Body temperature 98.01 [degF] Ashli Petznick DO Work Phone: [facility] 07-30-2023 11:16-0500 Body weight 114.31 kg Ashli Petznick DO Work Phone: [facility] 07-30-2023 11:16-0500 Diastolic blood pressure 62 mm[Hg] Ashli Petznick DO Work Phone: [facility] 07-30-2023 11:16-0500 Heart rate 66 /min Ashli Petznick DO Work Phone: [facility] 07-30-2023 11:16-0500 SaO2% (BldA) [Mass fraction] 97 % Ashli Petznick DO Work Phone: [facility] 07-30-2023 11:16-0500 Systolic blood pressure 116 mm[Hg] Ashli Petznick DO Work Phone: [facility] 07-17-2023 09:22-0500 Diastolic blood pressure 73 mm[Hg] MD Dank Campo Work Phone: [facility] 07-17-2023 09:22-0500 Heart rate 70 /min MD Dank Campo Work Phone: [facility] 07-17-2023 09:22-0500 Respiratory rate 18 /min MD Dank Campo Work Phone: [facility] 07-17-2023 09:22-0500 SaO2% (BldA) [Mass fraction] 97 % MD Dank Campo Work Phone: [facility] 07-17-2023 09:22-0500 Systolic blood pressure 173 mm[Hg] MD Dank Campo Work Phone: [facility] 07-17-2023 09:20-0500 Body height 177.8 cm MD Dank Campo Work Phone: [facility] 07-17-2023 09:20-0500 Body weight 111.13 kg MD Dank Campo Work Phone: [facility] 04-27-2023 12:40-0500 Diastolic blood pressure 68 mm[Hg] MD Dank Campo Work Phone: [facility] 04-27-2023 12:40-0500 Heart rate 75 /min MD Dank Campo Work Phone: [facility] 04-27-2023 12:40-0500 Respiratory rate 16 /min MD Dank Campo Work Phone: [facility] 04-27-2023 12:40-0500 SaO2% (BldA) [Mass fraction] 97 % MD Dank Campo Work Phone: [facility] 04-27-2023 12:40-0500 Systolic blood pressure 110 mm[Hg] MD Dank Campo Work Phone: [facility] 04-27-2023 10:29-0500 Body height 177.8 cm MD Dank Campo Work Phone: [facility] 04-27-2023 10:29-0500 Body weight 113.39 kg MD Dank Campo Work Phone: [facility] 04-10-2023 14:00-0400 Body height 177.8 cm Imad Asaad Other [employer] [facility] [employer] Other 04-10-2023 14:00-0400 Body mass index (BMI) [Ratio] 36.3 kg/m2 Imad Asaad Other [employer] Other 04-10-2023 14:00-0400 Body weight 114.76 kg Imad Asaad Other [employer] Other 04-10-2023 14:00-0400 Diastolic blood pressure 68 mm[Hg] Imad Asaad Other [employer] Other 04-10-2023 14:00-0400 Systolic blood pressure 113 mm[Hg] Imad Asaad Other [employer] Other 02-12-2023 09:46-0400 Blood Pressure Location Peterson PETERSEN [facility] 02-12-2023 09:46-0400 Diastolic blood pressure 90 mm[Hg] Peterson PETERSEN [facility] 02-12-2023 09:46-0400 Heart rate 68 /min Peterson PETERSEN [facility] 02-12-2023 09:46-0400 Respiratory rate 16 /min Peterson PETERSEN [facility] 02-12-2023 09:46-0400 Systolic blood pressure 138 mm[Hg] Petersno PETERSEN [facility] 07-24-2022 13:52-0500 Diastolic blood pressure 78 mm[Hg] MD Dank Campo Work Phone: [facility] 07-24-2022 13:52-0500 Heart rate 71 /min MD Dank Campo Work Phone: [facility] 07-24-2022 13:52-0500 Respiratory rate 16 /min MD Dank Campo Work Phone: [facility] 07-24-2022 13:52-0500 SaO2% (BldA) [Mass fraction] 96 % MD Dank Campo Work Phone: [facility] 07-24-2022 13:52-0500 Systolic blood pressure 136 mm[Hg] MD Dank Campo Work Phone: [facility] 07-24-2022 12:29-0500 Body height 177.8 cm MD Dank Campo Work Phone: [facility] 07-24-2022 12:29-0500 Body temperature 98 [degF] MD Dank Campo Work Phone: [facility] 07-24-2022 12:29-0500 Body weight 115.66 kg MD Dank Campo Work Phone: [facility] 07-20-2022 10:00-0500 Body height 177.8 cm Imad Dolores Other [employer] Other 07-20-2022 10:00-0500 Body mass index (BMI) [Ratio] 36.73 kg/m2 Imad Asaad Other [employer] Other 07-20-2022 10:00-0500 Body weight 116.12 kg Imad Asaad Other [employer] Other 07-20-2022 10:00-0500 Diastolic blood pressure 96 mm[Hg] Imad Asaad Other [employer] Other 07-20-2022 10:00-0500 Systolic blood pressure 170 mm[Hg] Imad Asaad Other [employer] Other 02-03-2022 08:29-0400 Blood Pressure Location Kleen Extreme [facility] 02-03-2022 08:29-0400 Diastolic blood pressure 88 mm[Hg] Peterson PETERSEN [facility] 02-03-2022 08:29-0400 Heart rate 75 /min Peterson PETERSEN [facility] 02-03-2022 08:29-0400 Respiratory rate 16 /min Peterson PETERSEN [facility] 02-03-2022 08:29-0400 Systolic blood pressure 138 mm[Hg] Peterson PETERSEN [facility] Encounters Encounter Date Encounter Type Care Provider Facility Start: 02-15-2024 ambulatory Peterson R NICOLA Wells ty:NORE[facility] Day Start: 08-29-2023 End: 08-29-2023 ambulatory DANK CAMPO Not Available Start: 08-27-2023 Telephone encounter Aliza [facility] Start: 08-23-2023 End: 08-24-2023 ambulatory [facility] Start: 08-22-2023 End: 08-22-2023 ambulatory Imad Asaad Facility:[facility] Start: 08-20-2023 End: 08-20-2023 ambulatory Dank Campo Facility:[facility] Start: 08-17-2023 Telephone encounter Gregoria shields [employer]ER[employer]ATION TEACHER Work Phone: [facility] - Sleep Disorders Comment on above: Sleep Lab (CPAP) Start: 08-15-2023 End: 08-15-2023 ambulatory [facility] Start: 08-15-2023 End: 08-15-2023 Office outpatient visit 25 minutes [facility] [employer] FREE[employer]ER-[employer]RIGATION TEACHER Work Phone: [facility] Comment on above: Personal history of tobacco use, presenting hazards to health (Primary Dx); Obstructive sleep apnea syndrome; CSA (central sleep apnea) Start: 08-09-2023 End: 08-09-2023 ambulatory Dank Campo Facility:[facility] Start: 08-09-2023 End: 08-09-2023 ambulatory MD Dank Campo Work Phone: [facility] Work Phone: Start: 08-09-2023 End: 08-09-2023 Patient encounter procedure MD Dank Campo Work Phone: [facility] [employer] Work Phone: Start: 08-02-2023 Telephone encounter Aliza Davisedicsrikanth [facility] Start: 08-01-2023 Chart abstracting Jr. Johanne Hdez DO Work Phone: [facility] Start: 08-01-2023 End: 08-01-2023 ambulatory JOHANNE MURILLO Not Available Start: 07-30-2023 End: 07-30-2023 ambulatory ASHLI ROSS Not Available Start: 07-30-2023 End: 07-30-2023 Office outpatient visit 25 minutes Ashli Ross DO Work Phone: [facility] Comment on above: Class 2 severe obesi ty due to excess calories with serious comorbidity and body mass index (BMI) of 36.0 to 36.9 in adult ([facility]) (Primary Dx); Type 2 diabetes mellitus with diabetic polyneuropathy, with long-term current use of insulin ([facility]) Start: 07-24-2023 End: 07-24-2023 ambulatory Edd Holden Facility:[facility] Start: 07-24-2023 End: 07-24-2023 Patient encounter procedure MD Dank Campo Work Phone: [facility] [place] Work Phone: Start: 07-17-2023 End: 07-17-2023 ambulatory Dank Campo Facility:[facility] Start: 07-17-2023 End: 07-17-2023 ambulatory MD Dank Campo Work Phone: [facility] Work Phone: Start: 07-17-2023 End: 07-17-2023 Patient encounter procedure MD Dank Campo Work Phone: [facility] [place] Work Phone: Start: 06-26-2023 End: 06-26-2023 ambulatory MD Dank Campo Work Phone: [facility] Work Phone: Start: 06-26-2023 End: 06-26-2023 Patient encounter procedure MD Dank Campo Work Phone: [facility] [address] Work Phone: Start: 06-07-2023 End: 06-07-2023 ambulatory DANK CAMPO Not Available Start: 05-14-2023 End: 05-14-2023 ambulatory EDD HOLDEN Not Available Start: 05-09-2023 End: 05-09-2023 ambulatory DEXTER KRISHNAMURTHY Not Available Start: 05-04-2023 End: 05-04-2023 ambulatory ASHLI Scott CODY Not Available Start: 05-02-2023 End: 05-02-2023 ambulatory DEXTER KRISHNAMURTHY Not Available Start: 04-30-2023 End: 05-01-2023 ambulatory EDD HOLDEN Not Available Start: 04-27-2023 End: 04-27-2023 ambulatory Imad Asaad Facility:[facility] Start: 04-27-2023 End: 04-27-2023 Admission to same day surgery center MD Dank Campo Work Phone: [facility] Work Phone: Start: 04-27-2023 End: 04-27-2023 ambulatory MD Dank Campo Work Phone: [facility] Work Phone: Start: 04-10-2023 End: 04-10-2023 ambulatory Imad Asaad Other [employer] Other Start: 04-10-2023 Office outpatient ne w 45 minutes Imad Asaad [facility] Start: 03-20-2023 End: 03-20-2023 ambulatory Imad Asaad Other [employer] Other Start: 03-20-2023 Telephone encounter Imad Asaad [facility] Start: 02-12-2023 End: 02-13-2023 ambulatory Peterson PETERSEN Facility: [place] Start: 02-12-2023 End: 02-12-2023 Patient encounter procedure Peterson PETERSEN [facility] Start: 02-06-2023 End: 02-07-2023 ambulatory ROSALVA MURO Facility:[facility] Start: 02-06-2023 End: 02-06-2023 Lab Drop off ROSALVA MURO [facility] Start: 02-06-2023 End: 02-06-2023 Patient encounter procedure DEJUAN PETERSEN [facility] Start: 12-26-2022 End: 12-27-2022 ambulatory ROSALVA MURO Facility:[facility] Start: 11-28-2022 End: 11-29-2022 ambulatory ROSALVA MURO Facility:[facility] Start: 10-17-2022 End: 10-18-[address] DANK CAMPO Facility:[facility] Start: 09-20-2022 End: 09-20-2022 ambulatory Imad Asaad Other [employer] Other Start: 09-20-2022 Telephone encounter Imad Asaad [facility] Start: 09-14-2022 End: 09-14-[address] DANK CAMPO Facility:[facility] Start: 09-12-2022 End: 09-13-[address] DANK CAMPO Facility:[facility] Start: 07-24-2022 Telephone encounter Imad Asaad [facility] Start: 07-24-2022 End: 07-24-2022 Admission to same day surgery center MD Dank Campo Work Phone: [facility] Work Phone: Start: 07-24-2022 End: 07-24-2022 ambulatory MD Dank Campo Work Phone: [facility] Work Phone: Start: 07-20-2022 End: 07-20-2022 ambulatory Imad Asaad Other [facility] [employer] Other Start: 07-20-2022 Patient encounter procedure Kike Bernal [facility] Start: 05-10-2022 End: 05-11-[address] DANK CAMPO Facility:[facility] Start: 04-14-2022 End: 04-15-[address] SORIN SHORE Facility:[facility] Start: 02-03-2022 End: 02-03-2022 Patient encounter procedure Peterson PETERSEN [facility] Start: 01-30-2022 End: 01-31-2022 ambulatory MR REBECCA KING . Facility:[facility] Start: 01-27-2022 End: 01-28-[address] PETERSON PETERSEN . Facility:[facility] Procedures Date Procedure Procedure Detail Performing Clinician Start: 07-30-2023 Hemoglobin glycosylated a1c Ashli green DO Work Phone: Start: 07-24-2023 CT of left shoulder with contrast MD Reina Campo Work Phone: Start: 04-27-2023 End: 04-27-2023 Colonoscopy MD Dank Campo Work Phone: Start: 07-24-2022 Esophagogastroduodenoscopy MD Dank caballero Work Phone: Start: 03-18-2021 Laparoscopic cholecystectomy Peterson GOODE Start: 01-16-2020 Radiation (physical force) Peterson Finn Comment on above: 12/08/2019 - 01/16/2020 12/08/2019 - 020 Start: 09-23-2019 Transrectal biopsy of prostate using ultrasound guidance Peterson PETERSEN Start: 09-03-2018 Transrectal biopsy of prostate using ultrasound guidance Peterson PETERSEN Appendectomy Peterson PETERSEN Colonoscopy Peterson PETERSEN History of repair of musculotendinous cuff of shoulder H/O rotator cuff surgery MD Dank Campo Work Phone: Tonsillectomy Peterson PETERSEN Plan of Treatment Date Care Activity Detail Author Start: 04-27-2033 Screening for malignant neoplasm of colon [facility] Start: 01-20-2031 DTaP,Tdap and Td Vaccines (3 - Td or Tdap) DTaP,Tdap and Td Vaccines (3 - Td or Tdap) [facility] Start: 08-15-2024 Adult BMI Screening Adult BMI Screening [facility] Start: 08-15-2024 Tobacco Screening Tobacco Screening [facility] Start: 02-25-2024 End: 02-25-2024 Patient encounter procedure 02/25/2024 10:30 AM EDT Office Visit [facility] [address] [place] [phone] Hanna Laguerre MD [address] [place] [address] [facility] Start: 11-19-2023 End: 11-19-2023 Clinical Support 11/19/2023 8:00 PM EDT Clinical Support [facility] - Sleep [facility] [address] [place] [phone] [facility] Start: 10-29-2023 End: 10-29-2023 Patient encounter procedure 10/29/2023 1:15 PM EDT Office Visit [facility] [address] [place] [address] Ashli Ross DO [address] [place] [address] [facility] Start: 10-28-2023 Hemoglobin A1c measurement Diabetes: Hemoglobin A1C [facility] Start: 08-29-2023 End: 08-29-2023 Patient encounter procedure 08/29/2023 7:45 AM EDT Office Visit [facility] [address] [place] [address] Dank Campo MD [address] [place] [address] [facility] Start: 08-23-2023 End: 08-23-2023 Patient encounter procedure [facility] Start: 08-15-2023 End: 08-15-2024 CT Chest for screening WO contrast CT low dose lung screenin (3mo 6mo follow-up) Imaging Routine Personal history of tobacco use, presenting hazards to health Expected: 08/15/2023, Expires: 08/15/2024 [facility]: Comment on above: Expected: 08/15/2023, Expires: Start: 08-15-2023 End: 08-15-2024 Echo complete W/O contrast Echo complete W/O contrast Echocardiography Routine Obstructive sleep apnea syndrome CSA (central sleep apnea) Expected: 08/15/2023, Expires: 08/15/[address] [facility] Comment on above: Expected: 08/15/2023, Expires: Start: 08-09-2023 End: 08-09-2023 Patient encounter procedure 08/09/2023 8:30 AM EST Office Visit [facility] [address] [place] [phone] Dexter Krishnamurthy DPM [address] [place] [address] [facility] Start: 08-01-2023 End: 08-01-2023 Patient encounter procedure 08/01/2023 10:30 AM EST Office Visit [facility] [address] [place] [phone] Jr. Johanne Hdez, [address] [address] [facility] Start: 04-27-2023 [facility] Start: 04-11-2023 Administration of varicella zoster vaccine Zoster (Shingles) Vaccine (3 of 3) [facility] Start: 02-16-2023 COVID-19 Vaccine ( season) COVID-19 Vaccine () [facility] Start: 02-16-2023 COVID-19 Vaccine ( season) COVID-19 Vaccine () [facility] Start: 02-16-2023 Influenza vaccination Influenza Vaccine [facility] Start: 07-24-2022 [facility] Start: 04-15-2022 Adult BMI Screening Adult BMI Screening [facility] Start: 09-15-2020 Fall Risk Screening Fall Risk Screening [facility] Start: 09-15-1974 Urine screening for protein Diabetes: Urine Protein Screening [facility] Start: 09-15-1973 Adult BMI Follow Up Plan Adult BMI Follow Up Plan [facility] Start: 1967 Depression Screening Depression Screening [facility] Start: 1967 Tobacco Screening Tobacco Screening [facility] Start: 09-15-1965 Glaucoma screening Diabetes: Retinopathy Screening [facility] Start: 1955 Medicare Annual Wellness (AWV) Medicare Annual Wellness (AWV) [facility] Start: 1955 Screening for malignant neoplasm of colon [facility] Patient Education [facility] Work Phone: End: 08-15-2024 Polysomnography 4 or more parameters with PAP titration Polysomnography 4 or more parameters with PAP titration Sleep Center Routine Obstructive sleep apnea syndrome CSA (central sleep apnea) 1 Occurrences starting 08/15/2023 until 08/15/[address] [facility] Comment on above: 1 Occurrences starting 08/15/2023 until 08/15/2024 Immunizations Immunization Date Immunization Notes Care Provider Fa cility 04-22-2023 zoster vaccine recombinant Ashli Ross DO Work Phone: [facility] 03-23-2023 RSV, recombinant, protein subunit RSVpreF, adjuvant reconstitu, 120mcg/0.5mL, PF (Arexvy) Ashli Petznick DO Work Phone: [facility] 02-14-2023 Influenza, Seasonal, Quadrivalent, Adjuvanted Ashli Petznick DO Work Phone: [facility] 02-14-2023 zoster vaccine recombinant Ashli Petznick DO Work Phone: [facility] 02-14-2023 influenza virus vaccine, unspecified formulation [facility] 02-14-2023 zoster vaccine, unspecified formulation [facility] 04-09-2022 COVID-19 mRNA Bivale nt Booster (BlackJet) MD Dnak Campo Work Phone: [facility] 04-09-2022 Influenza, Seasonal, Quadrivalent, Adjuvanted Ashli Petznick DO Work Phone: [facility] 04-13-2021 COVID-19 mRNA, Comirnaty (BlackJet) MD Dank Campo Work Phone: [facility] 02-22-2021 Influenza, Seasonal, Quadrivalent, Adjuvanted Ashli Petznick DO Work Phone: [facility] 02-22-2021 pneumococcal polysaccharide vaccine, 23 valent Ashli Petznick DO Work Phone: [facility] 01-20-2021 tetanus and diphther ia toxoids, adsorbed, preservative free, for adult use (5 Lf of tetanus toxoid and 2 Lf of diphtheria toxoid) Imad Asaad Other [employer] Other 01-17-2021 influenza, seasonal, injectable Ashli Petznick DO Work Phone: [facility] 01-17-2021 Moderna SARS-CoV-2 Vaccination Ashli Petznick DO Work Phone: [facility] 10-16-2020 SARS-CoV-2 (COVID-19 ) mRNA BNT-162b2 sharifx Peterson PETERSEN [facility] 10-01-2020 COVID-19 mRNAAlfred (Pfizer) MD Dank Campo Work Phone: [facility] 09-08-2020 COVID-19 mRNA Comirnatyunier (Pfizer) MD Dank Campo Work Phone: [facility] 02-17-2020 influenza, injectabl e, quadrivalent, preservative free Ashli Petznick DO Work Phone: [facility] 02-09-2020 influenza, high dose seasonal, preservative-free Ashli Petznick DO Work Phone: [facility] 03-15-2019 influenza, injectabl e, quadrivalent, preservative free Ashli Petznick DO Work Phone: [facility] 02-25-2018 influenza, injectabl e, quadrivalent, preservative free Ashli Petznick DO Work Phone: [facility] 05-30-2017 pneumococcal conjuga te vaccine, 13 valent Ashli Petznick DO Work Phone: [facility] 05-30-2017 pneumococcal polysaccharide vaccine, 23 valent Ashli Petznick DO Work Phone: [facility] 03-02-2017 influenza nasal, unspecified formulation Ashli Petznick DO Work Phone: [facility] 03-02-2017 influenza virus vaccine, unspecified formulation [facility] 03-02-2017 influenza, injectabl e, quadrivalent, preservative free Ashli Petznick DO Work Phone: [facility] 03-05-2016 influenza, injectabl e, quadrivalent, preservative free Ashli Petznick DO Work Phone: [facility] 03-05-2016 influenza, seasonal, injectable Ashli Petznick DO Work Phone: [facility] 02-18-2015 zoster vaccine, live Ashli Petznick DO Work Phone: [facility] 02-01-2015 influenza, seasonal, injectable Ashli Petznick DO Work Phone: [facility] 08-18-2014 tetanus toxoid, redu inocencio diphtheria toxoid, and acellular pertussis vaccine, adsorbed Ashli Petznick DO Work Phone: [facility] 08-04-2013 pneumococcal conjuga te vaccine, 13 valent Ashli Petznick DO Work Phone: [facility] Payers Date Payer Category Payer Self-pay [id number] 2023 Unknown [id number] 2020 Medicare [id number] 2013 Unknown KT [facility] Annamarie [employer] - R PREFIX [id number] 2013-Present [phone] [address] [place] [address] [id number]. [id number] 1959 Medicare [id number] 1955 Unknown [id number] .840.1.784639.3.579.2. 593 1955 Unknown [id number] .16.840.1.549547.3.579.2. 593 1955 Unknown [id number] .16.840.1.755576.3.579.2. 593 1955 Unknown [id number] 2.16.840.1.260991.3.579.2. 593 1955 Unknown [id number] 2.16.840.1.407503.3.579.2. 593 1955 Unknown [id number] 2.16.840.1.595389.3.579.2. 593 1955 Unknown [id number] 2.16.840.1.557328.3.579.2. 593 1955 Unknown [id number] 2.16.840.1.287732.3.579.2. 593 1955 Unknown [id number] 2.16.840.1.285487.3.579.2. 727 1955 Unknown [id number] 2.16.840.1.340298.3.579.2. 727 1955 Unknown [id number] 2.16.840.1.707110.3.579.2. 727 1955 Unknown [id number] 2.16.840.1.029033.3.579.2. 727 1955 Unknown [id number] 2.16.840.1.530542.3.579.2. 727 1955 Unknown [id number] 2.16.840.1.471748.3.579.2. 727 1955 Unknown [id number] 2.16.840.1.211893.3.579.2. 727 1955 Unknown [id number] 2.16.840.1.890544.3.579.2. 1286 1955 Unknown [id number] 2.16.840.1.245094.3.579.2. 1286 1955 Unknown [id number] 2.16.840.1.952761.3.579.2. 1286 1955 Unknown [id number] 2.16.840.1.541335.3.579.2. 1259 1955 Unknown [id number] 2.16.840.1.505295.3.579.2. 1259 1955 Unknown [id number] 2.16.840.1.362409.3.579.2. 1259 1955 Unknown [id number] 2.16.840.1.811260.3.579.2. 1259 1955 Unknown [id number] 2.16.840.1.155826.3.579.2. 1258 1955 Unknown [id number] 2.16.840.1.365643.3.579.2. 1258 1955 Unknown [id number] 2.16840.1.034102.3.579.2. 1258 1955 Unknown [id number] 2.16840.1.923642.3.579.2. 1258 1955 Unknown [id number] 2.840.1.472898.3.579.2. 1258 1955 Unknown [id number] 2.840.1.002048.3.579.2. 1258 1955 Unknown [id number] 2.840.1.755175.3.579.2. 125 Medicare Medicare [id number] Unknown [place] BC/BS [id number] Unknown Regular Insurance [id number] Unknown [id number] 2.840.1.462583.3.579.2. 531 Unknown [id number] 2.840.1.885453.3.579.2. 531 Unknown [id number] 2.840.1.034341.3.579.2. 531 Unknown [id number] 2.16840.1.714511.3.579.2. 531 Unknown [id number] 2.840.1.386292.3.579.2. 531 Unknown [id number] 2.840.1.520229.3.579.2. 531 Worker's Compensation [employer] [id number] Worker's Compensation [id number] Social History Date Type Detail Facility Start: 02-03-2022 End: 08-15-2023 Ex-smoker (finding) [facility] Start: 06-29-2020 End: 01-09-2023 Male [facility] Start: 1955 Sex Assigned At Male F [facility] Start: 06-18-1974 End: 2021 History of tobacco use Current smoker [facility] Start: 06-18-1974 End: 2021 History of tobacco use Cigarette Smoker [facility] Start: 06-29-2020 End: 12-11-2022 Cigarettes smoked current (pack per day) - Reported 1.5 [facility] Start: 12-11-2022 End: 08-15-2023 Tobacco use and exposure Smokeless tobacco non-user [facility] Start: 07-30-2023 Alcohol intake Ex-drinker (finding) [facility] Within the last year , have you been afraid of your partner or ex-partner? No [facility] Do you belong to any clubs or organizations such as shinto groups, unions, fraternal or athletic groups, or school groups? Yes [facility] Are you now , , , , never or living with a partner? [facility] How often to you hav e a drink containing alcohol? Never [facility] How many standard dr inks containing alcohol do you have on a typical day? Patient does not drink [facility] Do you feel stress - tense, restless, nervous, or anxious, or unable to sleep at night because your mind is troubled all the time - these days [OSQ] Not at all [facility] (I/We) worried wheth er (my/our) food would run out before (I/we) got money to buy more. Never true [facility] Start: 12-11-2022 Tobacco Comment Last smoked: 3 -6 months agoHeavy cigarette smoker (20-39 cigs/day) [facility] Start: 05-01-2023 Alcohol Comment Caffeine intake: non e [facility] Start: 1955 Sex Assigned At Not on file [facility] Start: 12-22-2020 [facility] Start: 04-15-2021 End: 08-16-2023 Alcohol intake Current non-drinker of alcohol (finding) [facility] System Medical Equipment Procedure Code Equipment Code Equipment Origin al Text Equipment Identifier Dates EGD (esophagogastroduod enoscopy) Video capsule endoscopy system ()[id number] -DDC-B FDA Start: 08-18-2020 USE DIRECTED FOUR TIMES DAILY [id number] Start: 10-09-2022 use to test BLOO D SUGAR THREE TIMES DAILY [id number] Start: 09-19-2022 use to test BLOO D SUGAR THREE TIMES DAILY [id number] Start: 11-01-2022 Swivelock 4.75 - Sna - [id number] Start: 12-10-2017 Incv/Swivelock 4.75 Use [id number] - Sna - [id number] Start: 07-19-2020 Goals Date Patient Goal Desired Activity /State Personal health goal Comment on above: Formatting of this n ote might be different from the original. Evaluation of progress towards goal: Home self care with childrens support Functional Status Date Assessment Result Facility 02-12-2023 Functional Status N/A [facility] 02-03-2022 N/A [facility] Clinical Notes 11-04-2020 to 08-27-2023 Telephone Encounter - Aliza Escalera - 08/27/2023 10:11 AM EDTTelephone Encounter - Aliza Escalera - 08/27/2023 10:11 AM EDTTelephone Encounter - Zoraida Rosario - 08/17/2023 9:53 AM EST Note Date & Type Note Facility 08-27-2023 Miscellaneous Notes ----- Message from SONNY Denis sent at 08/24/2023 10:25 AM EST ----- EF >45% ok for ASV Noted below in sleep lab encounter and on appt desk for techs for titration appt [facility] Telephone encounter Note ----- Message from SONNY Denis sent at 08/24/2023 10:25 AM EST ----- EF >45% ok for ASV [facility] 08-27-2023 Telephone encounter Note Noted below in sleep lab encounter and on appt desk for techs for titration appt [facility] 08-17-2023 Miscellaneous Notes 08/15 received CPAP order 08/16 Scheduled CPAP at [facility] 6/3 Confirmation mailed and emailed [employer] CPAP order and 08/15 Loree notes in epic With TCO2 monitoring. Please obtain baseline in supine position. Starting pressure IPAP25 EPAP10 PS 5 notes CSA on last download plans for Echo prior to titration [facility]23 Telephone encounter Note 08/15 received CPAP order 08/16 Scheduled CPAP at [facility] 6/3 Confirmation mailed and emailed [employer] CPAP order and 08/15 Loree notes in epic With TCO2 monitoring. Please obtain baseline in supine position. Starting pressure IPAP25 EPAP10 PS 5 notes CSA on last download plans for Echo prior to titration [facility] 08-15-2023 History of Presen t illness Narrative Images from the original note were not included. Chief Complaint: Milad Seymour returns to the Sleep [facility] for follow up on 08/15/2023. He is a 67 y.o. male followed at the Sleep Clinic for FRANK, for which BPAP 25/10/5 cm H2O was prescribed. At the time of the last visit on 12/22/20, the plan was to Continue BIPAP. HPI: The patient reports that he is adherent to his nocturnal ventilatory support for 4.5 hours a night 7 days per week. He reports feeling the benefits of wearing it nightly and denies any am fatigue or excessive daytime sleepiness. Denies any aerophagia. Denies any issues with mask fit or PAP machine. Reports not always putting on mask when going to bed or pulling it off in the middle of the night. He denies any fevers, chills, hemoptysis, wheezing, or chest pain. Overall, he is very pleased with his current status. Reports dyspnea with exertion, but currently at his baseline. Former smoker quit last year. He denies sleepiness while driving. Supplemental O2 use: none Current PAP interface: He uses a Full Face Mask. He does not use a chinstrap. He does use the heated inline humidifier. Cleaning supplies with soap and water. Davis Sleepiness Scale: Sitting and Reading: (!) Moderate Chance Watching TV: (!) Moderate Chance Sitting inactive in a public place (theater, meeting): Slight Chance As a passenger in a car for an hour without a break: Never Lying down in the afternoon to rest: (!) Moderate Chance Sitting and talking to someone: Never Sitting quietly after lunch (without alcohol): Slight Chance In a car, while stopped for a few minutes in traffic: Never Total: 8 OARRS: Reviewed: no PMH: Pertinent History: His pertinent medical history includes Past Medical History: Diagnosis Date Anemia Unknown Arthritis Benign prostatic hyperplasia Cancer (CMS-HCC) PROSTATE COPD (chronic obstructive pulmonary disease) ([facility]) Unknown Diabetes mellitus type 2, controlled ([facility]) GERD (gastroesophageal reflux disease) History of placement of ear tubes right ear Hyperlipidemia Hypertension Jaundice 03/30/21 FRANK (obstructive sleep apnea) cpap Visual impairment glasses Medications: Reviewed with patient. Current Outpatient Medications: baclofen (LIORESAL) 20 mg tablet, Take 1 tablet (20 mg total) by mouth 3 (three) times a day as needed for muscle spasms., Disp: , Rfl: celecoxib (CeleBREX) 200 mg capsule, Take 1 capsule (200 mg total) by mouth in the morning and 1 capsule (200 mg total) before bedtime., Disp: , Rfl: fluticasone propionate (FLONASE) 50 mcg/actuation nasal spray, Administer 2 sprays into each nostril daily., Disp: 15.8 mL, Rfl: 12 insulin lispro (HumaLOG) 100 unit/mL insulin pen, Inject under the skin., Disp: , Rfl: lansoprazole (PREVACID) 30 mg capsule, Take 1 capsule (30 mg total) by mouth in the morning., Disp: , Rfl: LANTUS SOLOSTAR U-100 INSULIN 100 unit/mL (3 mL) insulin pen, Inject 60 Units under the skin., Disp: , Rfl: lisinopriL (PRINIVIL,ZESTRIL) 5 mg tablet, Take 1 tablet (5 mg total) by mouth in the morning and 1 tablet (5 mg total) before bedtime., Disp: , Rfl: metoprolol succinate XL (TOPROL-XL) 50 mg 24 hr tablet, Take 1 tablet (50 mg total) by mouth in the morning., Disp: , Rfl: simvastatin (ZOCOR) 40 mg tablet, Take 1 tablet (40 mg total) by mouth in the morning., Disp: , Rfl: Vitals: 08/15/23 1333 08/15/23 1335 BP: (!) 88/55 107/60 Pulse: 81 SpO2: 95% Weight: 112.9 kg (249 lb) Height: 175.3 cm (5' 9 ) Allergies: Reviewed with patient. Patient has no known allergies. Family History: Family History Problem Relation Age of Onset Stroke Mother Hypertension Mother Diabetes Mother Heart disease Mother Alzheimer's disease Father Parkinsonism Father Hyperlipidemia Paternal Grandfather Social History: Social History Socioeconomic History Marital status: Spouse name: Not on file Number of children: Not on file Years of education: Not on file Highest education level: Not on file Occupational History Not on file Tobacco Use Smoking status: Former Packs/day: 3.00 Years: 47.00 Additional pack years: 0.00 Total pack years: 141.00 Types: Cigarettes Start date: 1974 Quit date: 09/2021 Years since quittin.9 Smokeless tobacco: Never Vaping Use Vaping Use: Former Substances: Nicotine Devices: Disposable Substance and Sexual Activity Alcohol use: No Drug use: No Sexual activity: Defer Other Topics Concern Not on file Social History Narrative Not on file Social Determinants of Health Financial Resource Strain: Not on file Food Insecurity: Not on file Transportation Needs: Not on file Physical Activity: Not on file Stress: Not on file Social Connections: Not on file Interpersonal Safety: Not on file Housing Instability: Not on file Travel History: Denies recent travel. ROS: All 11 systems have been reviewed: Review of Systems Constitutional: Positive for fatigue. Negative for chills and fever. Respiratory: Positive for shortness of breath. Negative for cough and wheezing. Cardiovascular: Negative for chest pain/discomfort. All other systems are reviewed and are negative except as noted. Physical Examination: Vital signs BP 107/60 Pulse 81 Ht 175.3 cm (5' 9 ) Wt 112.9 kg (249 lb) SpO2 95% BMI 36.77 kg/m Physical Exam Vitals and nursing note reviewed. Constitutional: Appearance: Normal appearance. He is obese. Cardiovascular: Heart sounds: Normal heart sounds. Pulmonary: Breath sounds: Normal breath sounds. Musculoskeletal: Cervical back: Neck supple. Skin: General: Skin is warm and dry. Neurological: Mental Status: He is alert and oriented to person, place, and time. Psychiatric: Mood and Affect: Mood normal. Behavior: Behavior normal. Laboratory DATA: Lab Results Component Value Date CO2 23 06/29/2020 Lab Results Component Value Date TSH 1.32 12/20/2018 Lab Results Component Value Date WBC 7.1 06/29/2020 HGB 15.2 06/29/2020 HCT 44.5 06/29/2020 MCV 94 06/29/2020 PLT 146 (L) 06/29/2020 Lab Results Component Value Date FERRITIN 139 12/20/2018 Chemistry Component Value Date/Time K 4.3 06/29/2020 1124 CL 106 06/29/2020 1124 CO2 23 06/29/2020 1124 BUN 15 06/29/2020 1124 CREATININE 0.80 06/29/2020 1124 GLU 94 06/29/2020 1124 GLU 206 (H) 12/23/2018 1144 Component Value Date/Time CALCIUM 8.5 06/29/2020 1124 ALKPHOS 71 12/21/2018 0646 AST 23 12/21/2018 0646 AST 27 12/19/2018 2310 ALT 17 12/21/2018 0646 ALT 22 12/19/2018 2310 Lab Results Component Value Date TSH 1.32 12/20/2018 No results found. Lab Results Component Value Date pH 7.417 12/20/2018 PCO2 29.7 (L) 12/20/2018 PO2 74 (L) 12/20/2018 Base,Deficit 5.0 (H) 12/20/2018 Portable HCO3 19.1 (L) 12/20/2018 SPO2 96 12/20/2018 DATA: BIPAP 20/16 cm of water Titration: 03/21/19 PS08/2014 w/ AHI 95 DME: [facility] [employer] Data card was available for PAP usage data download. PAP compliance is excellent. IMAGING/PFT Pulmonary function test Spirometry (Flow Volume Loop) w/ DLCO (diffusion study) Result Date: 01/21/2021 Normal spirometry without any evidence of obstructive or restrictive physiology. Normal gas transfer. Please correlate with clinical and radiographic findings. CT low dose lung screening (Annual) Result Date: 01/19/2021 SCREENING VISIT: Personal history of tobacco use/personal history of nicotine dependence. Lung cancer screening. 40 pack year smoking history COMPARISON: None. TECHNIQUE: Low dose CT chest performed without contrast with coronal and sagittal and maximum intensity projection reconstructed images. Maximum intensity projection images generated to increase the sensitivity of pulmonary nodule detection. FINDINGS: Noncalcified 4 mm nodule adjacent to the pleura in the left lower lobe (axial image 69). No other lung nodules. The central airways are patent. Mild distention of the esophagus containing some debris. Visualized structures in the lower neck are unremarkable. Visualized chest wall structures are unremarkable. Hepatic steatosis. No pleural or pericardial effusions. The thoracic aorta is unremarkable. The central pulmonary arteries are unremarkable. Coronary artery calcifications. No enlarged thoracic lymph nodes. No acute osseous abnormalities or aggressive osseous lesions. IMPRESSION: Lung Rads Category [address]: 12 months Follow up with physician is recommended: Mild distention of the esophagus containing some debris. Correlate for signs/symptoms of esophageal dysfunction consider further assessment with esophagram/EGD as indicated. All CT scans at this facility use dose modulation, iterative reconstruction, and/or weight based dosing when appropriate to reduce radiation dose to as low as reasonably achievable. Finalized by Abelardo Andres MD on 01/19/2021 3:24 AM Pulmonary function test Spirometry (Flow Volume Loop) w/ DLCO (diffusion study) Normal spirometry without any evidence of obstructive or restrictive physiology. Normal gas transfer. Please correlate with clinical and radiographic findings. No results found. Impression: Darrin Seymour was seen today for sleep apnea. Diagnoses and all orders for this visit: Personal history of tobacco use, presenting hazards to [facility] - CT low dose lung screenin (3mo 6mo follow-up); Future Obstructive sleep apnea syndrome - Ambulatory referral to Sleep Medicine - Echo complete W/O contrast; Future - Polysomnography 4 or more parameters with PAP titration; Future CSA (central sleep apnea) - Echo complete W/O contrast; Future - Polysomnography 4 or more parameters with PAP titration; Future FRANK with adherence to nocturnal ventilatory support on a nightly basis. Obesity Body mass index is 36.77 kg/m . GERD HTN Tobacco Dependency- Normal PFT 2018 Alpha one- MM History of Sepsis Legionella pneumonia December 2018 Plan: Discussed diagnosis, its evaluation, treatment and usual course. All questions answered. Educational material distributed. Orders Placed This Encounter Procedures CT low dose lung screenin (3mo 6mo follow-up) Standing Status: Future Standing Expiration Date: 08/15/2024 Order Specific Question: [facility] required diagnosis: Answer: Personal history of nicotine dependence [Z87.891] Order Specific Question: I certify that I have completed a lung cancer screening and shared decision making visit with the above named patient and have determined the patient meets criteria for a lung cancer screening. Answer: Yes Order Specific Question: Is there documentation of shared decision making? Answer: Yes Order Specific Question: Does the patient show any signs or symptoms of lung cancer? Answer: No Order Specific Question: Is this the first (baseline) CT or an annual exam? Answer: Annual [2] Order Specific Question: Is this a low dose CT or a routine CT? Answer: Low Dose CT [1] Order Specific Question: Release to patient via MyChart? Answer: Immediate [1] Echo complete W/O contrast Standing Status: Future Standing Expiration Date: 08/15/2024 Order Specific Question: Release to patient via MyChart? Answer: Immediate [1] Polysomnography 4 or more parameters with PAP titration Standing Status: Future Standing Expiration Date: 08/15/2024 Scheduling Instructions: With TCO2 monitoring. Please obtain baseline in supine position. Starting pressure IPAP25 EPAP10 PS 5 notes CSA on last download plans for Echo prior to titration Order Specific Question: Follow Up Answer: [facility] Sleep Medicine to read and follow patient. Order Specific Question: Reason for Study? Answer: G47.19 Excessive daytime sleepiness Order Specific Question: Reason for Study? Answer: G47.33 Obstructive sleep apnea Orders Placed or Reconciled This Encounter Medications LANTUS SOLOSTAR U-100 INSULIN 100 unit/mL (3 mL) insulin pen Sig: Inject 60 Units under the skin. insulin lispro (HumaLOG) 100 unit/mL insulin pen Sig: Inject under the skin. He is to continue BiPAP 25/10/5 cm H20 on a nightly basis. New mask and supplies as needed. Patient reports he was not seeing any other facility since he was last in our office. His pressure does not match up with his previous pressure on this new machine. He reports he did not change pressure. Patient to have a titration study completed with TCO2 monitoring. LDCT of chest to be completed. Independently reviewed and interpreted data download and ESS. Diet and exercise were discussed in detail. Any age appropriate or routine screening per PCP. Follow up in 6 Months time. If his condition should change prior to this he is encouraged to give our office a call. Discussed triggers to call back before follow up including weight change > 10%, major medical issues including stroke, arrhythmia or heart attack, or significant change in symptoms. EDUCATION: Driving precautions were reviewed. I advised the patient not to drive if sleepy, and to tie puller if sleepiness occurs while driving. Above plan as discussed with the patient who acknowledged understanding and agreement. Health risks associated with untreated FRANK were discussed (cardiopulmonary, cerebrovascular, and anesthesia/sedative-related). Discussed triggers to call back before next visit including weight change > 10%, major medical issues including stroke, arrhythmia or heart attack, or significant change in symptoms. This note is dictated with the use of M*Modal.Please note that this dictation was completed with computer voice recognition software. Quite often unanticipated grammatical, syntax, homophones, and other interpretive errors are inadvertently transcribed by the computer software. Please disregard these errors. Please excuse any errors that have escaped final proofreading. Gregoria Gibbs [facility] Office: [phone] 2:57 PM on 08/15/2023 CC: MD Gregoria GONZALEZ APRN-CNP 08/16/23 1438 documented in this encounter [facility] 08-15-2023 Instructions SONNY Denis - 08/15/2023 1:15 PM EST If you re looking for general health and wellness resources, please visit [email or web address] documented in this encounter [facility] 08-02-2023 Miscellaneous Notes Received sleep referral from Valeria Mckeon NP. Pt is already an established pt and last saw in 2020- was recommended to follow up with KW. However he was a no show for his last 2 appt with our office. Chat to Tahmina to advise if still to schedule appt. documented in this encounter [facility] 08-02-2023 Telephone encounter Note Received sleep referral from Valeria Mckeon NP. Pt is already an established pt and last saw in 2020- was recommended to follow up with [facility]. However he was a no show for his last 2 appt with our office. Chat to Tahmina to advise if still to schedule appt. [facility] 07-30-2023 History of Presen t illness Narrative Associated Problem(s): Type 2 diabetes mellitus with diabetic polyneuropathy, with long-term current use of insulin ([facility]) During the appointment today all pertinent labs, imaging, health maintenance, and glucose readings were reviewed. Encouraged to check blood glucose throughout the day with some fasting and some PP readings. They are to bring their glucose meter/cgm in to all appointments. All of the patients questions, treatment options, and current care plan and goals were discussed. A copy of this along with pertinent instructions were given to the patient at the end of the appointment. The patient voices understanding of all of this and is to call in between appointments if they have any problems or questions. Milad Seymour is struggling to gain control of their diabetes. I am very concerned for diabetes related complications. , The patient is wearing their cgm on a daily basis and making decisions in regards to adjusting insulin daily as well for at least the last 60 days , Discussed dietary changes at length. Encouraged to limit simple carbs and focus more on healthy protein/fat with all meals and snacks. They should also avoid any sugary drinks. , Instructions given today include: Insulin instructions and Dietary education. Will try ozempic to see if this helps with appetite suppression and allows us to use lower insulin doses. If not effective, will increase insulin doses. He needs to decrease portion sizes with food. Images from the original note were not included. Milad Seymour is a 67 y.o. male presents with chief complaint of Diabetes HPI: Diabetes Mellitus Follow-up: Milad Seymour is here for follow-up evaluation of diabetes mellitus. The initial diagnosis of diabetes was made in 2010 Diabetes complications: peripheral neuropathy He has been checking his blood glucose with the Dexcom G7 Last A1c: 11.2 on 05/04/2023 Last eye exam: Due Current concerns include: States his bg levels are improving overall. Trying to make healthier food choices Diet: limiting carbs and portions. Drinks: water, powerade zero. 2% milk Exercise: none Hypoglycemia: none Needs to have Left knee surgery. A1c needs to be 7% SUBJECTIVE: RECENT LABS: A1c Lab Results Component Value Date HGBA1C 8.9 07/30/2023 HGBA1C 11.2 05/04/2023 HGBA1C 13.1 12/04/2022 Current dietary foods: Breakfast Lunch Dinner Snacks Drinks Premade meal ([place] and dressing) (Mac and cheese) Protein shake See medication list at the end of the note. No Known Allergies REVIEW OF SYMPTOMS: Review of Systems Constitutional: Negative for appetite change, fatigue and unexpected weight change. Eyes: Negative for visual disturbance. Respiratory: Negative for cough, shortness of breath and wheezing. Cardiovascular: Negative for chest pain, palpitations and leg swelling. Neurological: Positive for numbness. Endocrine: Negative for polydipsia, polyphagia and polyuria. OBJECTIVE: Visit Vitals BP 116/62 Pulse 66 Temp 98 F Ht 5' 10 Wt 252 lb SpO2 97% BMI 36.16 kg/m Smoking Status Former BSA 2.37 m Physical Exam Constitutional: General: He is not in acute distress. Appearance: Normal appearance. He is obese. Cardiovascular: Rate and Rhythm: Normal rate and regular rhythm. Heart sounds: No murmur heard. No friction rub. No gallop. Pulmonary: Breath sounds: Normal breath sounds. No wheezing, rhonchi or rales. Musculoskeletal: General: No swelling. Neurological: Mental Status: He is alert. ASSESSMENT AND PLAN: Problem List Items Addressed This Visit Type 2 diabetes mellitus with diabetic polyneuropathy, with long-term current use of insulin ([facility]) During the appointment today all pertinent labs, imaging, health maintenance, and glucose readings were reviewed. Encouraged to check blood glucose throughout the day with some fasting and some PP readings. They are to bring their glucose meter/cgm in to all appointments. All of the patients questions, treatment options, and current care plan and goals were discussed. A copy of this along with pertinent instructions were given to the patient at the end of the appointment. The patient voices understanding of all of this and is to call in between appointments if they have any problems or questions. Milad Seymour is struggling to gain control of their diabetes. I am very concerned for diabetes related complications. , The patient is wearing their cgm on a daily basis and making decisions in regards to adjusting insulin daily as well for at least the last 60 days , Discussed dietary changes at length. Encouraged to limit simple carbs and focus more on healthy protein/fat with all meals and snacks. They should also avoid any sugary drinks. , Instructions given today include: Insulin instructions and Dietary education. Will try ozempic to see if this helps with appetite suppression and allows us to use lower insulin doses. If not effective, will increase insulin doses. He needs to decrease portion sizes with food. Relevant Medications Semaglutide,0.25 or 0.5MG/DOS, (Ozempic, 0.25 or 0.5 MG/DOSE,) 2 MG/3ML solution pen-injector Other Relevant Orders POCT glycosylated hemoglobin (Hb A1C) docked device (Completed) Class 2 severe obesity due to excess calories with serious comorbidity and body mass index (BMI) of 36.0 to 36.9 in adult ([facility]) - Primary Follow up in about 3 months (around 10/28/2023) for Recheck. Patient's Medications New Prescriptions SEMAGLUTIDE,0.25 OR 0.5MG/DOS, (OZEMPIC, 0.25 OR 0.5 MG/DOSE,) 2 MG/3ML SOLUTION PEN-INJECTOR Inject 0.5 mg under the skin 1 (one) time per week Previous Medications ASPIRIN 81 MG CHEWABLE TABLET Chew 81 mg 1 (one) time each day at the same time. BACLOFEN (LIORESAL) 20 MG TABLET Take 1 tablet (20 mg) by mouth in the morning and 1 tablet (20 mg) in the evening and 1 tablet (20 mg) before bedtime. CELECOXIB (CELEBREX) 200 MG CAPSULE TAKE 1 CAPSULE BY MOUTH TWICE DAILY CONTINUOUS BLOOD GLUC SENSOR (DEXCOM G7 SENSOR) MISC Inject 1 Device under the skin See administration instructions Change every 10 days DIAZEPAM (VALIUM) 5 MG TABLET Take 1 tablet (5 mg) by mouth 1 (one) time for 1 dose Take 30 minutes prior to MRI. [facility] UNIFINE PENTIPS 31G X 5 MM MISC USE DIRECTED FOUR TIMES DAILY FLUOROMETHOLONE (FML) 0.1 % OPHTHALMIC SUSPENSION instill 1 (ONE) DROP IN BOTH EYES FOUR TIMES DAILY FOR 7 DAYS then instill 1 (ONE) DROP IN BOTH EYES TWICE DAILY FOR 7 DAYS FUROSEMIDE (LASIX) 40 MG TABLET Take 40 mg by mouth Daily as needed. INSULIN LISPRO (HUMALOG) 100 UNIT/ML INJECTION INJECT 8-15 UNITS BREAKFAST, 20 UNITS LUNCH AND 30 UNITS DINNER PLUS CORRECTIONS OF 1:30 > 150MG/DL ( MAX 100 UNITS A DAY) LANCETS (ONETOUCH DELICA PLUS [id number]) [facility] use to test BLOOD SUGAR THREE TIMES DAILY LANSOPRAZOLE (PREVACID) [address] CAPSULE lansoprazole 30 mg capsule,delayed release LANTUS SOLOSTAR 100 UNIT/ML PEN Inject 60 Units under the skin in the morning. LISINOPRIL 10 MG TABLET TAKE 1 TABLET BY MOUTH TWICE DAILY MAGNESIUM OXIDE (MAG-OX) 400 (240 MG) MG TABLET TAKE 1 TABLET BY MOUTH DAILY MAGNESIUM OXIDE (MAG-OX) 400 MG TABLET 1 (one) time each day at the same time. METOPROLOL SUCCINATE XL (TOPROL-XL) 50 MG 24 HR TABLET metoprolol succinate ER 50 mg tablet,extended release 24 hr ONETOUCH ULTRA TEST STRIP use to test BLOOD SUGAR THREE TIMES DAILY SIMVASTATIN (ZOCOR) 40 MG TABLET Take 40 mg by mouth in the morning and 40 mg before bedtime. SPIRONOLACTONE (ALDACTONE) 50 MG TABLET TAKE 1 TABLET BY MOUTH DAILY Modified Medications No medications on file Discontinued Medications CONTINUOUS BLOOD GLUC SENSOR (FREESTYLE CORNELIUS 2 SENSOR) [facility] Use as directed LOPERAMIDE (IMODIUM) 2 MG CAPSULE Take 2 mg by mouth in the morning and 2 mg before bedtime. METHOCARBAMOL (ROBAXIN) 750 MG TABLET Take 1 tablet (750 mg) by mouth in the morning and 1 tablet (750 mg) at noon and 1 tablet (750 mg) in the evening and 1 tablet (750 mg) before bedtime. documented in this encounter [facility] 04-27-2023 Procedure note [facility] 04-10-2023 Evaluation note Encounter Date Diagnosis Assessment Notes Mar, GERD (gastroesophage al reflux disease) (ICD-10 - K21.9) The patient continues to complain of ongoing regurgitation. He is taking Lansoprazole 30 mg dialy & we will increase this to 30 mg bid. Mar, Hemorrhoids (ICD-10 - K64.9) Mar, Alternating constipation and diarrhea (ICD-10 - R19.8) [facility] 10-03-2023 Evaluation note* Encounter Date Diagnosis Assessment Notes Treatment Notes Treatment Clinical Notes Mar, Gastroesophageal ref lux disease with esophagitis (ICD-10 - K21.0) [facility] 08-28-2023 Hospital Discharge instructions Patient Education [...] greater thelikelihood that the cancer will spread. Rosalina 6 or lower: This indicates that the cancer cells look similar to normal prostate cells (well differentiated). Armbrust 7: This indicates that the cancer cells [...] stress of having cancer. General instructions Take uath-ejs-glvviyd and prescription medicines only as told by your health care provider. If you have to go to the hospital, notify your cancer specialist (oncologist). Keep all follow-up visits. This is important. Where to find more information [place] [employer]: www.cancer.org [place] [employer]: www.cancer.net National [employer]: www.cancer.gov Contact a health care provider if: [...] provider. Document Revised: 08/31/2021 Document Reviewed: 08/31/2021 [employer] Patient Education 2022 [employer]. Follow Up Care 02/03/2022 09:06:37 With:NICOLA RAYMUNDO, Peterson Owens, URL Address: [facility] [address], [place] [address]- [phone] When: Unknown Comments:1 yr w/ PSA [facility] 04-05-2023 Evaluation note* Encounter Date Diagnosis Assessment Notes Treatment Notes Treatment Clinical Notes Sep, Gastroesophageal ref lux disease with esophagitis (ICD-10 - K21.0) [facility] 02-06-2023 Procedure [facility]02-02-2023 Evaluation note* Encounter Date Diagnosis Assessment Notes Treatment Notes Treatment Clinical Notes Jul, Diarrhea (ICD-10 - R19.7) Jul, GERD (gastroesophageal reflux disease) (ICD-10 - K21.9) Jul, Hemorrhoids (ICD-10 - K64.9) PATIENT TO START ANUSOL CREAM USE SITZ BATH NEEDED Jul, Dysphagia (ICD-10 - R13.10) [facility] 10-28-2022 NotePROCEDURE: XR FOOT RT MIN 3 VIEWS COMPARISON: None. HISTORY: Pain in right foot FINDINGS: BONES:No acute fracture or dislocation. Persistent hammertoe deformities. Moderate hallux valgus. 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 Bulky enthesopathic spurring of the calcaneus SOFT TISSUES:Negative. No visible soft tissue swelling. EFFUSION:None visible. OTHER: Negative. IMPRESSION: Degenerative changes Electronically authenticated by: SORIN SHORE Date: 2022-04-14 18:01[facility]08-19-2022 Hospital Discharge instructions Patient Education 02/03/2022 [...] urethra. Follow these instructions at home: Take pbmf-kiv-tsppvpj and prescription medicines only as told by [...] 06/04/2006 Document Revised: 04/29/2019 Document Reviewed: 07/09/2017 [employer] Patient Education 2019 [employer]. Follow Up Care 08/05/2021 10:59:30 With:NICOLA RAYMUNDO, Peterson Owens, URL Address: [facility] [address], [place] [address]- When:1 year Comments:W/ TONO [facility] 08-17-2021 NoteHNO ID: [id number] Author: Fawad Diaz MD Service: ? Author Type: Physician Type: Progress Notes Filed: 02/03/2021 9:48 AM Note Text: Radiation Oncology - Follow Up Note PATIENT NAME: Milad Seymour PATIENT DIAGNOSIS: DIAGNOSIS: Prostate adenocarcinoma, initial PSA 14.65, biopsy Armbrust score 3 + 3 = 6 (grade [...] ASSESSMENT/PLAN:DIAGNOSIS: Prostate adenocarcinoma, initial PSA 14.65, biopsy Rosalina [...] 6 months repeat PSA. Signed by: Fawad Diaz MD cc: Dank Campo MD ([facility]) [address] [place] [address] Dr. Petersen Portions of the above note extracted and edited from previous visit as well as active information included in the EMR.[facility] 11-04-2020 NoteHNO ID: [id number] Author: Fawad Diaz MD Service: ? Author Type: Physician Type: Progress Notes Filed: 11/04/2020 9:44 AM Note Text: Radiation Oncology - Follow Up Note PATIENT NAME: Milad Seymour PATIENT DIAGNOSIS: DIAGNOSIS: Prostate adenocarcinoma, initial PSA [...] ASSESSMENT/PLAN:DIAGNOSIS: Prostate adenocarcinoma, initial PSA 14.65, biopsy Armbrust score 3 + 3 = 6 (grade [...] the fall for follow-up. Signed by: Fawad Diaz MD cc: Dank Campo MD ([facility]) [address] [place] [address] Dr. [facility] note Future Appointments Appointment Date:02/12/2023 09:15:00 AM Scheduled Provider:Peterson PETERSEN MD Location:[facility] Appointment Type:URO Office Visit Diagnostic Tests Pending * PSA Total 02/03/22 [facility] evaluation + Plan note Future Appointments Appointment Date:02/12/2023 09:15:00 AM Scheduled Provider:Peterson PETERSEN MD Location:[facility] Appointment Type:URO Office Visit [facility] evaluation + Plan note Future Appointments Appointment Date:02/15/2024 08:15:00 AM Scheduled Provider:Peterson PETERSEN MD Location:[facility] Appointment Type:URO Office Visit Diagnostic Tests Pending * PSA Total 02/12/23 [facility] evaluation noteNo assessment information available [facility] Work Phone: evaluation noteNo InformationNort Hitch Other evaluation note* Diagnosis Class 2 severe obesity due to excess calories with serious comorbidity and body mass index (BMI) of 36.0 to 36.9 in adult ([facility])- Primary Type 2 diabetes mellitus with diabetic polyneuropathy, with long-term current use of insulin ([facility]) documented [facility] Diagnosis Onset Date Resolution Status H/O rotator cuff surgery acu te [facility] Work Phone: evalucesyn note* Diagnosis Personal history of tobacco use, presenting hazards to health- Primary Obstructive sleep apnea syndrome Obstructive sleep apnea (adult) (pediatric) CSA (central sleep apnea) Unspecified sleep apnea documented [facility] this [facility] Author Kike Bernal [facility] July 24, 2022 1:05pm Note Date/Time July 24, 2022 1 :05pm [facility] [address] [place] [address] Gastroenterology H&P Signed Patient: Milad Seymour MR#: [id number] : 1955 Acct:[id number] Age/Sex: 66 / M Adm Date: 3 Loc: Room: Type: [facility] Attending Dr: Kike Bernal MD Copies to: [...] M.D. Documented By: Kike Bernal MD 07/24/22 1304 Signed By: <Electronically signed by Kike Bernal MD> 07/24/22 1305 [facility] Work Phone: History and physical note Author Kike Bernal [facility] April 27, 2023 11:41am Note Date/Time April 27, 2023 11:41am [facility] [address] [place] [address] Gastroenterology H&P Signed Patient: Milad Seymour MR#: [id number] : 1955 Acct:[id number] Age/Sex: 67 / M Adm Date: 3 Loc: Room: Type: [facility] Attending Dr: Kike Bernal MD Copies to: [...] signed by Kike Bernal MD> 04/27/23 1141 [facility] Work Phone: History general Narrative - Reported* [...] none in the last year 20 22 [facility] Other Hospital course Narrative No data available for this section [facility] Discharge instructions Additional Instructions DISCHARGE INSTRUCTIONS [...] NOT operate machinery such as power tools, [employer]n mowers, snow blowers, sewing machines, etc. for [...] problems. -Follow up with PCP. -Office number [phone]. [facility] Work Phone: Hospital Discharge instructions No data available for this section [facility] Discharge instructions Additional Instructions DISCHARGE INSTRUCTIONS [...] NOT operate machinery such as power tools, [employer]n mowers, snow blowers, sewing machines, etc. for [...] in the office as scheduled -Office number [phone]. [facility] Work Phone: InstructionsNot on filedocumented in this encounter [facility] SystemInstructionsNot on filedocumented in this encounter [facility] System[facility] note No data available for this section [facility] Summary Purpose Family History No Family History Records Found Relationship Condition Age at Onset Recorded Date/T katelyn father Cerebrovascular accident (CVA) Unknown Myocardial infarction Unknown Not Specified Cerebrovascular accident (CVA) Unknown Relationship Condition Age at Onset Recorded Date/T katelyn father Myocardial infarction Unknown Cerebrovascular accident (CVA) Unknown Not Specified Cerebrovascular accident (CVA) Unknown Diabetes mellitus Unknown daughter Hypertension Unknown Advance Directives No Advanced Directives Records Found Advance Directive Response Recorded Date/ Time Advance Directives No October 11, 018 1:12pm Latest Code Status on File Code Status Date Activated Date Inactivated Comments Full Code 12/20/2018 5:21 AM 12/23/2018 4:36 PM Latest Code Status on File Code Status Date Activated Date Inactivated Comments Full Code 12/20/2018 5:21 AM 12/23/2018 4:36 PM Chief Complaint and Reason for Visit Chief Complaint Gerd, Dysphagia Chief Complaint Constipation, Diarrh ea, Blood in Stool Chief Complaint Constipation, Diarrh ea, Blood in Stool m47.816 Chief Complaint m47.816 m24.812 m47.816 Reason for Visit H/O rotator cuff naren scott Reason for Referral Specialty Diagnoses / Procedures Referred By Contac t Referred To Contact Diagnoses Obstructive sleep apnea syndrome CSA (central sleep apnea) Procedures Polysomnography 4 or more parameters with PAP titration Gregoria Ralph ICE CREAM FREEZER-IRRIGATION TEACHER [address] [address] Referral ID Status Reason Start Date Expiration Date V isits Requested Visits Authorized [id number] Pending Review 08/15/2023 08/14/2024 1 1 Specialty Diagnoses / Procedures Referred By Contac t Referred To Contact Diagnoses Obstructive sleep apnea syndrome CSA (central sleep apnea) Procedures Echo complete W/O contrast Gregoria Ralph ICE CREAM FREEZER-IRRIGATION TEACHER [address] [address] [facility] [address] [place] [address] Phone: [phone] Referral ID Status Reason Start Date Expiration Date V isits Requested Visits Authorized [id number] Authorized 08/15/2023 11/12/2023 1 1 Specialty Diagnoses / Procedures Referred By Contac t Referred To Contact Radiology Diagnoses Personal history of tobacco use, presenting hazards to health Procedures CT low dose lung screenin (3mo 6mo follow-up) Gregoria Ralph APRN-IRRIGATION TEACHER [address] [facility], [address] [place] [address] [facility] [address] [place] [address] Phone: [phone] Referral ID Status Reason Start Date Expiration Date V isits Requested Visits Authorized [id number] Authorized 08/16/2023 11/13/2023 1 1 Additional Source Comments (unrecognized sect ion and content) No Status Records FoundNo Status Records FoundNo Status Records FoundNo Status Records FoundNo Status Records FoundNo Status Records FoundNo Status Records Found INFORMATION SOURCE (unrecogn ized section and content) DATE CREATED AUTHOR 08/06/2021 [facility] DATE CREATED AUTHOR AUTHOR'S ORGANIZ ATION 10/24/2022 [facility] DATE CREATED AUTHOR AUTHOR'S ORGANIZ ATION 02/13/2023 [facility] DATE CREATED AUTHOR AUTHOR'S ORGANIZ ATION 08/18/2023 [facility] DATE CREATED AUTHOR AUTHOR'S ORGANIZ ATION 08/24/2023 [facility] DATE CREATED AUTHOR AUTHOR'S ORGANIZ ATION 08/30/2023 [facility] DATE CREATED AUTHOR AUTHOR'S ORGANIZ ATION 08/31/2023 [facility] Care Team (unrecognized sect ion and content) Team Status: Active Member Role Status Dates Dank Campo MD Primary Care Provider Active Team Status: Inactive Member Role Status Dates Dank Campo MD Primary Care Provider Active Kike Bernal MD Attending Provider Active Team Status: Inactive Member Role Status Dates Dank Campo MD Primary Care Provider, Attending Pro vider Active Team Status: Inactive Member Role Status Dates Dank Campo MD Primary Care Provider Active S tart: April 27, 2023 End: April 27, 2023 Kike Bernal MD Attending Provider Active Start: April 27, 2023 End: April 27, 2023 Team Status: Inactive Member Role Status Dates Dank Campo MD Primary Care Provide r, Attending Provider Active Start: July 17, 2023 End: July 17, 2023 [employer] Seat Cover Fitter Relationship Specialty Start Date End Date Dank Campo MD [address] [place] [phone] PCP - General Family Medicine 07/25/23 [employer] Seat Cover Fitter Relationship Specialty Start Date End Date Dank Campo MD [address] [place] [phone] PCP - General Family Medicine 07/25/23 [employer] Seat Cover Fitter Relationship Specialty Start Date End Date Dank Campo MD [address] [facility], [place] [phone] PCP - General Family Medicine 12/10/17 Team Status: Inactive Member Role Status Dates Dank Campo MD Primary Care Provider Active S tart: July 24, 2023 End: July 24, 2023 KERRI Thorpe Attending Provider Active Start: July 24, 2023 End: July 24, 2023 Team Status: Inactive Member Role Status Dates Dank Campo MD Primary Care Provide r, Attending Provider, Referring Provider Active Start: August 09, 2023 End: August 09, 2023 [employer] Seat Cover Fitter Relationship Specialty Start Date End Date Dank Campo MD [address] [facility], [place] [phone] PCP - General Family Medicine 12/10/17 Top And Seat Cover Fitter Relationship Specialty Start Date End Date Dank Campo MD [address] [place] [address] PCP - General Family Medicine 12/10/17 REASON FOR VISIT (unrecogniz ed section and content) Reason Comments Diabetes Reason Comments Sleep Apnea DME: [facility] Specialty Diagnoses / Procedures Referred By Contfelipa t Referred To Contact Pulmonary Medicine / Sleep Medicine Diagnoses Obstructive sleep apnea syndrome Gonzalez Jyoti, ICE CREAM FREEZER-IRRIGATION TEACHER [address] [place] [address] [facility] Sleep [facility] [place] [address] Referral ID Status Reason Start Date Expiration Date Visits Requested Visits Authorized [id number] Pending Review Specialty Services Required 08/13/2023 08/12/2024 1 1 Reason Onset Date Comments Sleep Lab 08/17/2023 CPAP Goals (unrecognized section and content) Goals may be documented in a n alternate section FOR RECORDS PERTAINING TO PATIENTS WHO ARE [...] BE BASED ON THE PRIMARY CLINICAL RECORDS. [employer] provides no warranty or guarantee of the accuracy or completeness of information in this document.
[2023-09-04 10:25] LABS: Microalbumin Urine Random <1.3 mg/dL (<=30.0)
[2023-09-04 10:32] LABS: Basophils Absolute Auto 0.1 10^3/uL (0.0-0.1); Basophils Percent Auto 0.8 % (0.2-2.0); Eosinophils Absolute Auto 0.3 10^3/uL (0.0-0.7); Eosinophils Percent Auto 2.5 % (0.9-7.0); Hematocrit 38.8 % (42.0-54.0); Hemoglobin 12.8 g/dL (14.0-18.0); Immature Granulocytes Abs Auto 0.05 10^3/uL (0.00-0.03); Immature Granulocytes Pct Auto 0.5 % (0.0-0.5); Lymphocytes Absolute Auto 2.3 10^3/uL (1.2-3.8); Lymphocytes Percent Auto 22.1 % (20.5-60.0); Mean Corpuscular Hemoglobin 30.7 pg (25.9-34.0); Mean Platelet Volume 10.2 fL (9.5-13.5); Monocytes Absolute Auto 0.7 10^3/uL (0.3-0.8); Monocytes Percent Auto 7.2 % (1.7-12.0); Neutrophils Absolute Auto 6.8 10^3/uL (1.4-6.5); Neutrophils Percent Auto 66.9 % (43.0-75.0); Platelet Count 163 10^3/uL (150-450); Red Blood Count 4.17 10^6/uL (4.70-6.10); Red Cell Distribution Width 13.1 % (11.0-15.0); White Blood Count 10.2 10^3/uL (4.0-11.0)
[2023-09-04 10:36] LABS: Alanine Aminotransferase 41 U/L (16-63); Albumin Level 3.7 g/dL (3.4-5.0); Alkaline Phosphatase 100 U/L (46-116); Anion Gap 14.1; Aspartate Amino Transferase 23 U/L (15-37); BUN Creatinine Ratio 24.7; Bilirubin Direct 0.1 mg/dL (0.0-0.2); Bilirubin Total 0.5 mg/dL (0.2-1.0); Calcium 8.9 mg/dL (8.5-10.1); Carbon Dioxide 27.3 mmol/L (21.0-32.0); Chloride 98 mmol/L (98-107); Chol HDL Ratio 3.7; Cholesterol 142 mg/dL (<=200); Estimated GFR (African America 55 (>=60); Estimated GFR (Non-African Ame 45 (>=60); Globulin 3.8 g/dL; Glucose 221 mg/dL (74-106); HDL Cholesterol 38 mg/dL (40-60); Potassium 5.4 mmol/L (3.5-5.1); Sodium 134 mmol/L (136-145); Thyroid Stimulating Hormone 2.292 uIU/mL (0.358-3.740); Total Protein 7.5 g/dL (6.4-8.2); Triglycerides 236 mg/dL (<=150); VLDL CHOLESTEROL 47.2 mg/dL
== END 2023-09-04 09:33 | disposition home or self-care (01) ==
LOC: LAB 09:33
PROVIDERS: PCP Family Medicine; Visit Provider Family Medicine
DX: Z79.899 Other long term (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 therapy (principal); E78.00 Pure hypercholesterolemia, unspecified; E66.9 Obesity, unspecified; E11.42 Type 2 diabetes mellitus with diabetic polyneuropathy; Z79.4 Long term (current) use of insulin
CPT/HCPCS: 36415; 80048; 80061; 80076; 82043; 84443; 85025

== ENCOUNTER 2023-10-01 11:23 | Outpatient (OUT) | payer MEDICARE, SELFPAY ==
--- NOTE | 2023-10-01 15:45 | P.CN_ITS ---
Consult Note: HPI Data of Consult Patient: new to practice Consult date: 10/01/23 Requesting Physician: Roma Lopez MD Primary Care Provider: Dank Bella MD Consult Narrative Reason for consult: low back pain, bilateral lower extremity pain Narrative: 68yom who presents for evaluation. notes worsening pain that radiates from low back to legs, worse with ambulation. underwent physical therapy within past 3 months, which did not provide lasting benefit. imaging shows multilevel degenerative changes, with stenosis at multiple levels, worst at l4-5. utilizes otc pain meds as needed, but does not like taking pills. denies adverse med side effects. cc:: CC: Roma Lopez MD Review of Systems ROS Status of ROS 10 or more systems reviewed and unremark able except as noted in history and below Exam Narrative Exam Narrative: Psych-alert and oriented x 3. Attentive and appropriate, constitutionally normal, displays normal mood and affect per situation.? There are no obvious deficits in memory, reasoning, or intellect.? Skin-no obvious rashes, bruising, erythema noted to the patient's area of pain. Extremities- extremities are warm with minimal edema and palpable pulses. Lumbar-no significant tenderness to palpation noted in the lumbar spine and paraspinal musculature.? Pain is elicited with extension, and lateral rotation of the lumbar spine. Range of motion is slightly diminished with these motions due to pain. Facet loading maneuvers are positive bilaterally and do appear to be concordant with the patient's normal complaints of pain.? Coordination remains intact.? Gait remains non-antalgic. 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 failed conservative measures. imaging reviewed. given symptoms and imaging, prudent to attempt bilateral l4-5 tfesi under fluoroscopic guidance. may also benefit from bilateral sij injection. he is in agreement. meds reviewed, no changes. follow up after procedure.
== END 2023-10-01 11:24 | disposition home or self-care (01) ==
LOC: PM 11:23
PROVIDERS: PCP Family Medicine; Visit Provider Anesthesiology
DX: M48.062 Spinal stenosis, lumbar region with neurogenic claudication (principal); M53.3 Sacrococcygeal disorders, not elsewhere classified; M47.816 Spondylosis without myelopathy or radiculopathy, lumbar region
CPT/HCPCS: G0463

== ENCOUNTER 2023-10-09 09:41 | Outpatient (OUT) | payer MEDICARE, SELFPAY ==
--- OUTSIDE RECORDS SUMMARY | 2023-10-09 10:00 | XMS_ITS | CCD ---
Author Organization [facility] Care Team Providers Care Assembler Final Name Role Phone DANK CAMPO Primary Care Physician MD Dank Campo Primary Care Provider MD Kike Bernal Attending Provider Asaad, Imad Unavailable FERNANDO ., MR REBECCA Admitting Unavailable NADERER, DR DANK Leon Primary Care Unavailable KING ., MR REBECCA Attending Unavailable KING ., MR REBECCA Consulting Unavailable PETERSEN ., DR WINKLER Consulting Unavailable PETERSEN ., DR WINKLER Admitting Unavailable NADERER, DR DANK eLon Primary Care Unavailable PETERSEN ., DR WINKLER Attending Unavailable NADERER, DR DANK Leon Primary Care Unavailable ASAAD, IMAD Admitting Unavailable ASAAD, IMAD Attending Unavailable ASAAD, IMAD Consulting Unavailable NADEREGraciela, DR DANK Leon Primary Care Unavailable NADERER, DR DANK Leon Admitting Unavailable NADERER, DR DANK Leon Attending Unavailable NADERER, DR DANK Leon Consulting Unavailable ASAAD, IMAD Admitting Unavailable NADERER, DR DANK Leon Primary Care Unavailable ASAAD, IMAD Attending Unavailable ASAAD, IMAD Consulting Unavailable NADEREGraciela, DR DANK Leon Primary Care Unavailable NADERER, DR DANK Leon Admitting Unavailable NADERER, DR DANK Leon Attending Unavailable NADERER, DR DANK Leon Admitting Unavailable NADERER, DR DANK Leon Attending Unavailable NADERER, DR DANK Leon Consulting Unavailable NADERER, DR DANK Leon Primary Care Unavailable BLACK HAWK, DR SORIN Rodarte Consulting Unavailable NADEREGraciela, DR DANK Leon Admitting Unavailable NADERER, DR DANK Leon Attending Unavailable NADERER, DR DANK Leon Primary Care Unavailable NADEREGraciela, DR DANK Leon Consulting Unavailable MD Dank Campo Primary Care Provider [phone] MD Kike Bernal Attending Provider MD Dank Campo Attending Provider MD Dank Campo Attending Provider [phone] Jena RAYMUNDO, Dank Primary Care Provider Dank Campo MD Primary Care Provider MD Dank Campo Primary Care Provider [phone] KERRI Holden Attending Provider MD Dank Campo Referring Provider [phone] GREGORIA RALPH Attending Unavailable NADERER, DANK Referring Unavailable NADERER, DANK Primary Care Unavailable KREGREGORIA NINO Referring Unavailable NADERER, DANK Primary Care Unavailable KREMICA, GREGORIA Manzo Referring Unavailable NADERER, DANK Primary Care Unavailable Asaad, Imad Admitting Unavailable Asaad, Imad Attending Unavailable Naderer, Dank Primary Care Unavailable Naderer, Dank Primary Care Unavailable Naderer, Dank Attending Unavailable Naderer, Dank Admitting Unavailable HoldenEdd dickson Admitting Unavailable Edd Holden Attending Unavailable Naderer, Dank Primary Care Unavailable Asaad, Imad Admitting Unavailable Asaad, Imad Attending Unavailable Naderer, Dank Primary Care Unavailable Naderer, Dank Primary Care Unavailable Naderer, Dank Attending Unavailable Naderer, Dank Referring Unavailable Naderer, Dank Admitting Unavailable Naderer, Dank Primary Care Unavailable Naderer, Dank Attending Unavailable Naderer, Dank Admitting Unavailable RUS, DEXTER Leon Attending Unavailable PETKERLINE, ASHLI Scott Attending Unavailable PETKERLINE, ASHLI Scott Attending Unavailable JR. JOON, JOHANNE [place] Attending Unavaila ble RUS, DEXTER Leon Attending Unavailable NADERER, DANK Referring Unavailable NADERER, DANK Attending Unavailable RUSHER, DEXTER Leon Attending Unavailable RUSHER, DEXTER Leon Attending Unavailable HOLDENEDD DICKSON Attending Unavailable RUSHER, DEXTER Leon Attending Unavailable HOLDENEDD DICKSON Attending Unavailable HOLDENEDD Referring Unavailable NADERER, DANK Attending Unavailable Peterson PETERSEN Attending Unavailable JINAROSALVA Attending Unavailable JINAROSALVA Attending Unavailable DEJUAN PETERSEN Attending Unavailable JINA, ROSALVA De Luna Admitting Unavailable JINA, ROSALVA De Luna Attending Unavailable JINA, ROSALVA E Admitting Unavailable JINA, ROSALVA De Luna Attending Unavailable Peterson PETERSEN Attending Unavailable Jessica RAYMUNDO, Roma Arteaga Attending Unavailable Allergies Allergy Classification Reported Allergen(s) Allergy Type Date of Onset Reaction(s) Facility (1 source) No Known Medication Allergies; 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: [No Known Medication Allergies] Propensity to adverse reactions (disorder) [facility] Repository Medications Current Medications Medication Drug [...] Ordered Start: 01-30-2019 take 1 capsule by [facility] twice daily celecoxib (CeleBREX) 200 MG capsule Indications: Lumbago with sciatica, right side TAKE 1 CAPSULE BY MOUTH TWICE DAILY 60 capsule 5 07/24/2023 Active Continuous Blood Gluc Sensor (Dexcom G7 Sensor) misc (4 sources) Start: 06-05-2023 End: 06-04-2024 Continuous Blood Gluc Sensor (Dexcom G7 Sensor) misc Indications: Type 2 diabetes mellitus with diabetic polyneuropathy, with long-term current use of insulin ([facility]) Inject 1 Device under the skin See administration instructions Change every 10 days 9 each 3 06/05/2023 06/04/2024 Active Continuous Blood Gluc Sensor (FreeStyle Cornelius 2 Sensor) misc (2 sources) Start: 05-23-2023 End: 07-30-2023 Continuous Blood Gluc Sensor (FreeStyle Cornelius 2 Sensor) [facility] [place] [place] Indications: Type 2 diabetes mellitus with diabetic polyneuropathy, with long-term current use of insulin ([facility]) Use as directed 2 each 05/23/2023 07/30/2023 Discontinued (Therapy completed) diazePAM 5 [...] 0 12/28/2022 Active fluticasone 0.05 mg/inh Nasal [place] (3 sources) Start: 07-28-2019 fluticasone 0.05 mg/inh Nasal [place] Nasal, Daily, Refill(s) 0 Start Date: 07/28/19 [...] polyneuropathy, with long-term current use of insulin ([facility]) Inject 60 Units under the skin at bedtime 30 mL 3 07/30/2023 Active 3 ml insulin lispro 100 unt/ml pen injector (12 sources) Insulin Analog Start: 06-05-2023 insulin lispro (HumaLOG) 100 UNIT/ML injection Indications: Type 2 diabetes mellitus with diabetic polyneuropathy, with long-term current use of insulin ([facility]) INJECT 8-15 UNITS BREAKFAST, 20 UNITS LUNCH [...] 10 MG tablet Indications: Essential (primary) hypertension ([facility]) TAKE 1 TABLET BY MOUTH TWICE DAILY [...] Start: 12-10-2019 take 1 capsule by mo [facility] twice daily Loperamide HCl 2 MG 1 [...] polyneuropathy, with long-term current use of insulin ([facility]) Inject 0.5 mg under the skin 1 [...] Drug Class(es) Dates Sig (Normalized) Sig (Original) [id number] 200 actuat albuterol 0.09 mg/actuat metered dose inhaler (2 sources) beta2-Adrenergic Agonist Start: 12-22-2020 End: 08-15-2023 take 2 puff(s) by inhalation every four hours as needed for wheezing albuterol (PROVENTIL HFA;VENTOLIN HFA) 90 mcg/actuation inhaler Indications: Chronic obstructive pulmonary disease, unspecified COPD type ([facility]) Inhale 2 puffs every 4 (four) hours [...] 12-08-2020 End: 03-14-2021 Dibucaine Discontinued 1 APPLIC [place] Four times daily 56 December 07, 2020 [...] Fluticasone Propionate (Flonase Allergy Relief) 50 mcg/actuation [place],Suspension Discontinued 1 SPRAY INTRANASAL Daily February 10, 2020 11:00pm July 24, 2022 12:24pm Start: 07-28-2019 fluticasone 0. 05 mg/inh Nasal [place] Nasal, Daily, Refill(s) 0 Start Date: 07/28/19 [...] mg by mouth three times daily Pyridostigmine [place] Discontinued 60 MG PO Three times daily [...] 12-04-2022 Chronic Other aftercare (1 source) Other longterm (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 therapy; 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: [OTH EXCEPTIONAL STUDENT EDUCATION AIDE CURRENT DRUG THERAPY] Onset: 3 Episodic Other [...] sources) Long-term current use of insulin; 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: [roasterman (current) use of insulin] Onset: 12-04-2022 12-04-2022 [...] Range Facility [place] gastric emptying studyon 08-22-2023 [place] gastric emptying study [facility] [place] [address] Nuclear Medicine Report Signed Patient: Milad Seymour MR#: [id number] : 1955 Acct:[id number] Age/Sex: 67 / M ADM Date: 08/22/23 Loc: [place] Room: Type: [facility] Attending Dr: Kike Bernal MD Copies to: MD Shaheen Ralph Jr, DO Ordering Provider: Kike Bernal MD Date of Service: 08/22/23 [place] gastric emptying study: R11.10 - Vomiting, unspecified [...] reflux with activity seen within the esophagus. [place] gastric emptying study IMPRESSION: LIMITED EXAMINATION THE PATIENT ABORTED THE SCAN AT 23 MINUTES. NO COMPLETE GASTRIC OUTLET OBSTRUCTION IS SEEN. THERE IS LIKELY GASTROESOPHAGEAL REFLUX WITH ACTIVITY SEEN WITHIN THE ESOPHAGUS DURING IMAGING. Impression dictated by: Shaheen Grimes Jr., D.OJitendra08/22/2023 12:21 PM Dictation Location: [place] [address] Transcribed By: [facility] 08/22/23 1221 Dictated By: Shaheen Grimes Jr, DO 08/22/23 1215 Signed By: 08/22/23 1221 Normal [facility] Glucose Poct Glucometerson 0 08-20-2023 Glucose [Mass/Vol] 182 mg/dL Normal [facility] Comment on above: Result Comment: [place] Glucose Reference Range is dependent on time and content of last meal. Glucose of more than 200 mg/dL in a nonstressed, ambulatory subject supports the diagnosis of Diabetes Mellitus. PERFORMED BY: [place] [address] PATHOLOGIST WHIZZER HAND JEANNINE VAZQUEZ M.D. Performed By: #### G LULS #### Point of Care testing , Glucose [Mass/Vol] 227 mg/dL Normal [facility] Comment on above: Result Comment: [place] Glucose Reference Range is dependent on time and content of last meal. Glucose of more than 200 mg/dL in a nonstressed, ambulatory subject supports the diagnosis of Diabetes Mellitus. PERFORMED BY: [address] [address] PATHOLOGIST WHIZZER HAND JEANNINE VAZQUEZ M.D. Performed By: #### G LULS #### Point of Care testing , XR pre/post mri xrayon 08-19 XR pre/post mri xray [facility] Main [address] [address] MRI Report Signed Patient: Milad Seymour MR#: [id number] : 1955 Acct:[id number] Age/Sex: 67 / M ADM Date: 08/20/23 Loc: [place] Room: Type: [facility] Attending Dr: Dank Campo MD Copies to: Dank Campo MD Ordering Provider: Dank Campo MD Date of Service: 08/20/23 MR/MR lumbar spine wo con: [id number] ([id number]) XR/XR pre/post mri xray: PRE LUMBAR MRI [...] Tom Chanel M.D.08/20/2023 1:02 PM Dictation Location: [place] [address] Transcribed By: [facility] 08/20/23 1302 Dictated By: Tom Chanel DO 08/20/23 1250 Signed By: 08/20/23 1302 [facility] HbA1c (Bld) [Mass fraction]o n 07-30-2023 Interpretation and review of laboratory results Abnormal [facility] H[facility]ology and Cell countson 07-30-2023 HbA1c (Bld) [Mass fraction] 8.9 % [facility] CT shoulder LT w conon 07-24 CT shoulder LT w con [facility] [place] [address] [place], [place] [id number] CT Scan Report Signed Patient: Milad Seymour MR#: [id number] : 1955 Acct:[id number] Age/Sex: 67 / M ADM Date: 07/24/23 Loc: XD Room: Type: [facility] Attending Dr: Edd Holden GROUNDSKEEPING MAINTENANCE WORKER-C Copies to: Edd Holden BEACH ATTENDANT Ordering Provider: Edd Holden BEACH ATTENDANT Date of Service: 07/24/23 CT/CT shoulder LT [...] Kamran Chavira M.D.07/24/2023 1:48 PM Dictation Location: [place] [address] Transcribed By: [facility] 07/24/23 1348 Dictated By: Kamran Chavira II, MD 07/24/23 1336 Signed By: 07/24/23 1348 Normal [facility] [place] guided needle placement 07-24-2023 [place] guided needle placement [facility] Main [place] [id number] Fluoroscopy Report Signed Patient: Milad Seymour MR#: [id number] : 1955 Acct:[id number] Age/Sex: 67 / M ADM Date: 07/24/23 Loc: XD Room: Type: [facility] Attending Dr: Edd Holden GROUNDSKEEPING MAINTENANCE WORKER-C Copies to: Edd Holden BEACH ATTENDANT Ordering Provider: Edd Holden CNP Date of Service: 07/24/23 FL/FL guided needle [...] Kamran Chavira M.D.07/24/2023 12:39 PM Dictation Location: [place] [address] Transcribed By: WOODY 07/24/23 1239 Dictated By: Kamran Chavira II, MD 07/24/23 1231 Signed By: 07/24/23 1239 [facility] Glucose Glucometer (BldC) [M ass/Vol]Ordered By: Kike Bernal on 04-27-2023 Glucose [Mass/Vol] 189 mg/dL [facility] Comment on above: Random Glucose Refer ence Range is dependent on time and content of last meal. Glucose of more than 200 mg/dL in a nonstressed, ambulatory subject supports the diagnosis of Diabetes Mellitus. Glucose Poct Glucometerson 1 06-27-2022 Commemt1 Glu2: Cleaned Meter Normal [facility] Comment on above: Result Comment: PERF ORMED BY: [facility] [place] [address] PATHOLOGIST WHIZZER HAND JEANNINE VAZQUEZ M.D. Performed By: #### G LULS #### Point of Care testing , Glucose [Mass/Vol] 189 mg/dL Normal [facility] Comment on above: Result Comment: [place] om Glucose Reference Range is dependent on time and content of last meal. Glucose of more than 200 mg/dL in a nonstressed, ambulatory subject supports the diagnosis of Diabetes Mellitus. Performed By: #### G LULS #### Point of Care testing , William 04-27-2023 L ------ Specimen: [id number] Received: 04/27/23 Status: MASSIEL Junior Num: [id number] Spec Type: Surgical Subm Dr: Kike Bernal MD Tissues: A Colon Biopsy (RANDOM COLON) Procedures: HE/2, Gross/Micro L4 Age/ Patient Sex Location Account Attending Physician Milad Seymour 67/M [id number] Kike Bernal MD SPEC NUM: [id number] RECD: 04/27/23 STATUS: MASSIEL HOLLOWAY NUM: [id number] KURT: 04/27/23- [facility] DR: Kike Bernal MD ENTERED: 04/27/[address] [facility] DR: VERA TYPE: Surgical DEPT: S [...] microscopic examination confirms the diagnosis. CPT Codes 03285 Specimen: [id number] Received: 04/27/23-1246 Status: MASSIEL [place] Num: [id number] Spec Type: Surgical Subm Dr: Kike Bernal MD Tissues: A Colon Biopsy (RANDOM COLON) Procedures: HE/2, Gross/Micro L4 Patient: Milad Seymour [id number] (Continued) Signed (signature on file) Kaushal Magana MD 04/30/23 1325 Normal [facility] No Panel InformationOrdered By: Kike Bernal on 04-27-2023 Bedside Glucose Comment Glu2: cleaned meter [facility] Patient Educationon 02-13-20 Patient Education Oncology [...] to normal prostate cells (well differentiated). ? [place] 7: This indicates that the cancer cells look somewhat similar to normal prostate cells (moderately differentiated). ? [place] 8, 9, or 10: This indicates that [...] external be (more content not included)... Normal [facility] Reminderson 02-12-2023 Reminders - From: Johana Reeves To: EU - Recalls Petersen; Sent: 02/12/2023 17:56:32 EDT Show up: 01/13/2024 17:56:00 EDT Subject: PSA prior to appt Reminder Message Please Remember to:_have pt get PSA done prior to appt in 1 year. Ever [facility] Urology Office/Clinic Noteon 02-12-2023 Urology Office/Clinic [...] URL [facility] [address], [place] [address] [phone] Additional Instructions: 1 yr w/ PSA Patient [...] TID celecoxib, Oral fluticasone 0.05 mg/inh Nasal [place], Nasal, Daily Insulin Lispro KwikPen 100 units/mL [...] used for this result was chemiluminescence using [employer] Hybritech PSA reagent. PSA Total 0.5 ng/mL 11/28/2022 11:31 EDT The concentration of P (more content not included)... Normal [facility] Comment on above: Result Comment: Elec tronically Signed By: Peterson PETERSEN MD\.br\Date and Time Signed: 02/12/23 10:15 EDT\.br\Electronically Co-Signed By: Johana Reeves\.br\Date and Time Co-Signed: 02/12/23 10:14 EDT Ambulatory Visit Summaryon 0 02-06-2023 Ambulatory Visit Summary MILAD SEYMOUR :1955 Visit Date:02/06/2023 Ambulatory Visit Instructions Your Diagnosis Prostate cancer Your Care Team Attending Physician - DEJUAN PETERSEN MD Primary Care Physician - DANK CAMPO MD This Is Your Medications List aspirin (aspirin 81 mg Oral EC Tab) baclofen celecoxib fluticasone nasal (fluticasone 0.05 mg/inh Nasal [place]) lansoprazole lisinopril metformin metoprolol (metoprolol 25 mg ER Tab) simvastatin Procedures Performed Laparoscopic cholecystectomy (03/2021), Radiation (01/16/2020), Transrectal biopsy of prostate using ultrasound (US) guidance (09/23/2019), Transrectal biopsy of prostate using ultrasound (US) guidance (09/03/2018), Appendectomy, Colonoscopy, Tonsillectomy. What to do next Scheduled Follow-Up Appointments Sunday 9:15 AM EDT With: NICOLA RAYMUNDO, Peterson Owens Where: [facility] CHEMISTRYOrdered By: SYSTEM SYSTEM on 02-06-2023 Prostate specific Ag [Mass/Vol] 0.4 ng/mL Normal 0.1 - 3.5 ng/mL [facility] Remisol PSA Totalon 02-06-2023 Prostate specific Ag [Mass/Vol] 0.4 ng/mL Normal 0.1-3.5 [facility] Comment on above: Result Comment: The concentration of PSA determined by different manufacturers can vary due to differences in assay methods and reagent specificity. Values obtained from different assay methods cannot be used interchangeably. The methodology used for this result was chemiluminescence using [employer] Hybritech PSA reagent. Performed By: #### 1 [id number] #### [facility] [address] [place] [address] PSA Totalon 11-28-2022 Prostate specific Ag [Mass/Vol] 0.5 ng/mL Normal 0.1-3.5 [facility] Comment on above: Result Comment: The concentration of PSA determined by different manufacturers can vary due to differences in assay methods and reagent specificity. Values obtained from different assay methods cannot be used interchangeably. The methodology used for this result was chemiluminescence using [employer] Access Hybritech PSA reagent. Performed By: #### 1 [id number] #### [facility] [address] [place] [address] PANCREATIC ELASTASE FECALon 09-24-2022 Pancreatic Elastase, Fecal 467 ug Elast./g Normal >200 [facility] Comment on above: Result Comment: Nicolle re Pancreatic Insufficiency: <100 Moderate Pancreatic Insufficiency: 100 - 200 Normal: >200 Performed By: #### C PEPT #### [facility] [address] [place], [place] [address] Dr. Stewart De La Cruz POTASSIUM, FECALon 3 Potassium, Stool 57 mmol/L Normal [facility] Comment on above: Result Comment: INTE RPRETIVE INFORMATION: Fecal Potassium A reference interval has not been established for fecal specimens. This test was developed and its performance characteristics determined by [employer]. It has not been cleared or approved by the [place] Food and Drug Administration. This test was performed in a CLIA certified laboratory and is intended for clinical purposes. Performed By: #### C PEPT #### [facility] [address] [place] [address] Dr. Stewart De La Cruz SODIUM, FECALon 09-17-2022 Sodium, Stool 65 mmol/L Normal [facility] Comment on above: Result Comment: INTE RPRETIVE INFORMATION: Fecal Sodium A reference interval has not been established for fecal specimens. This test was developed and its performance characteristics determined by [employer]. It has not been cleared or approved by the US Food and Drug Administration. This test was performed in a CLIA certified laboratory and is intended for clinical purposes. Performed By: #### F ECALN #### [facility] [address] [place] [address] Dr. Stewart De La Cruz CALPROTECTIN, FECALon 2022 Calprotectin, Fecal 43 ug/g Normal 0-120 [facility] Comment on above: Result Comment: Conc entration Interpretation Follow-Up <16 - 50 ug/g Normal None >50 -120 ug/g Borderline Re-evaluate in 4-6 weeks >120 ug/g Abnormal Repeat as clinically indicated Performed By: #### C PEPT #### [facility] [address] [place] [address] Dr. Stewart De La Cruz C-PEPTIDE, SERUMon 3 C-Peptide, Serum 6.5 ng/mL Critically high 1.1-4.4 [facility] Comment on above: Result Comment: C-Pe ptide reference interval is for fasting patients. Performed By: #### C PEPT #### [facility] [address] [place] [address] Dr. Stewart De La Cruz HIV 1 AND 2 WITH REFLEXon HIV Screen 4th Generation wRfx Non-Reactive Normal Non Reactive [facility] Comment on above: Result Comment: HIV Negative HIV-1/HIV-2 antibodies and HIV-1 p24 antigen were NOT detected. There is no laboratory evidence of HIV infection. Performed By: #### C PEPT #### [facility] [address] [place] [address] Dr. Stewart De La Cruz INSULINon 09-13-2022 Insulin 13.9 uIU/mL Normal 2.6-24.9 [facility] Comment on above: Performed By: #### C PEPT #### [facility] [address] [place] [address] Dr. Stewart De La Cruz POTASSIUM, FECALon 3 Potassium, Stool QNSMT Normal [facility] Comment on above: Result Comment: Test not performed. One specimen was submitted with requests for multiple tests. The requested testing requires a separate specimen for each test requested. contacted Keesha at your facility on 09-13-2022 Performed By: #### C PEPT #### [facility] [address] [place] [address] Dr. Stewart De La Cruz SODIUM, FECALon 09-13-2022 Sodium, Stool QNSMT Normal [facility] Comment on above: Result Comment: Test not performed. One specimen was submitted with requests for multiple tests. The requested testing requires a separate specimen for each test requested. contacted Keesha at your facility on 09-13-2022 Performed By: #### F ECALN #### [facility] [address] [place] [address] Dr. Stewart De La Cruz CBC AUTO DIFFon 09-12-2022 BASO # 0.1 103/ul Normal 0.0-0.1 [facility] Comment on above: Performed By: #### C PEPT #### [facility] [address] [place] [address] Dr. Stewart De La Cruz Basophils/100 WBC (Bld) 1.2 % Normal 0.2-2.0 [facility] Comment on above: Performed By: #### C PEPT #### [facility] [address] [place] [address] Dr. Stewart De La Cruz EO # 0.3 103/ul Normal 0.0-0.7 [facility] Comment on above: Performed By: #### C PEPT #### [facility] [address] [place] [address] Dr. Stewart De La Cruz Eosinophils/100 WBC (Bld) 4.5 % Normal 0.9-7.0 [facility] Comment on above: Performed By: #### C PEPT #### [facility] [address] [place] [address] Dr. Stewart De La Cruz Erythrocyte distribution width (RBC) [Ratio] 12.9 % Normal 11.0-15.0 [facility] Comment on above: Performed By: #### C PEPT #### [facility] [address] [place] [address] Dr. Stewart De La Cruz Hematocrit (Bld) [Volume fraction] 44.6 % Normal 42.0-54.0 [facility] Comment on above: Performed By: #### C PEPT #### [facility] [address] [place] [address] Dr. Stewart De La Cruz Hemoglobin (Bld) [Mass/Vol] 14.9 g/dL Normal 14.0-18.0 [facility] Comment on above: Performed By: #### C PEPT #### [facility] [address] [place] [address] Dr. Stewart De La Cruz IG # 0.03 10e3/ul Normal 0.00-0.03 [facility] Comment on above: Performed By: #### C PEPT #### [facility] [address] [place] [address] Dr. Stewart De La Cruz IG % 0.5 % Normal 0.0-0.5 [facility] [facility] Comment on above: Performed By: #### C PEPT #### [facility] [address] [place] [address] Dr. Stewart De La Cruz LYMPH # 1.1 103/ul Critically low 1.2-3.8 [facility] Comment on above: Performed By: #### C PEPT #### [facility] [address] [place] [address] Dr. Stewart De La Cruz Lymphocytes/100 WBC (Bld) 18.5 % Critically low 20.5-60.0 [facility] Comment on above: Performed By: #### C PEPT #### [facility] [address] [place] [address] Dr. Stewart De La Cruz MANUAL DIFF REQ NO Normal [facility] Comment on above: Performed By: #### C PEPT #### [facility] [address] [place] [address] Dr. Stewart De La Cruz MCH (RBC) [Entitic mass] 29.2 pg Normal 25.9-34.0 [facility] Comment on above: Performed By: #### C PEPT #### [facility] [address] [place] [address] Dr. Stewart De La Cruz MCHC (RBC) [Mass/Vol] 33.4 g/dL Normal 29.9-35.2 [facility] Comment on above: Performed By: #### C PEPT #### [facility] [address] [place] [address] Dr. Stewart De La Cruz MCV (RBC) [Entitic vol] 87.5 fL Normal 80.0-94.0 [facility] Comment on above: Performed By: #### C PEPT #### [facility] [address] [place] [address] Dr. Stewart De La Cruz MONO # 0.4 103/ul Normal 0.3-0.8 [facility] Comment on above: Performed By: #### C PEPT #### [facility] [address] [place] [address] Dr. Stewart De La Cruz Monocytes/100 WBC (Bld) 6.8 % Normal 1.7-12.0 [facility] Comment on above: Performed By: #### C PEPT #### [facility] [address] [place] [address] Dr. Stewart De La Cruz NEUT # 4.2 103/ul Normal 1.4-6.5 [facility] Comment on above: Performed By: #### C PEPT #### [facility] [address] [place] [address] Dr. Stewart De La Cruz Neutrophils/100 WBC (Bld) 68.5 % Normal 43.0-75.0 [facility] Comment on above: Performed By: #### C PEPT #### [facility] [address] [address] [address] Stewart De La Cruz Platelet mean volume (Bld) [Entitic vol] 9.8 fL Normal 9.5-13.5 [facility] Comment on above: Performed By: #### C PEPT #### [facility] [address] [place] [address] Dr. Stewart De La Cruz PLT 133 103/ul Critically low 150-450 [facility] Comment on above: Performed By: #### C PEPT #### [facility] [address] [place] [address] Dr. Stewart De La Cruz RBC 5.10 106/ul Normal 4.70-6.10 [facility] Comment on above: Performed By: #### C PEPT #### [facility] [address] [place] [address] Dr. Stewart De La Cruz WBC 6.1 103/ul Normal 4.0-11.0 [facility] Comment on above: Performed By: #### C PEPT #### [facility] [address] [place] [address] Dr. Stewart De La Cruz CRPon 09-12-2022 CRP [Mass/Vol] mg/L Normal <=1.0 [facility] Comment on above: Performed By: #### C RP #### [facility] [address] [place] [address] Dr. Stewart De La Cruz GLYCOHEMOGLOBIN A1Con 2022 ADA RECOMMENDATION SEE BELOW Normal [facility] Comment on above: Result Comment: ADA RECOMMENDED LIMIT 4.0 - 6.0 ADA THERAPEUTIC TARGET < 7.0 ACTION SUGGESTED > 7.0 Performed By: #### A 1C #### [facility] [address] [place] [address] Dr. Stewart De La Cruz Glucose [Mass/Vol] 278 mg/dL Normal [facility] [place] [facility] Comment on above: Performed By: #### A 1C #### [facility] [address] [place] [address] Dr. Stewart De La Cruz HbA1c (Bld) [Mass fraction] 11.3 % Critically high 4.5-6.2 [facility] Comment on above: Performed By: #### A 1C #### [facility] [address] [address] [address] Stewart De La Cruz PROF CHEM 8 (BAS METB)on Anion gap [Moles/Vol] 16.9 mmol/L Normal [facility] Comment on above: Performed By: #### C PEPT #### [facility] [address] [address] [address] Stewart De La Cruz Calcium [Mass/Vol] 9.3 mg/dL Normal 8.5-10.1 [facility] Comment on above: Performed By: #### C PEPT #### [facility] [address] [address] [address] Stewart De La Cruz Chloride [Moles/Vol] 103 mmol/L Normal 98-107 [facility] Comment on above: Performed By: #### C PEPT #### [facility] [address] [place] [address] Dr. Stewart De La Cruz CO2 [Moles/Vol] 26.0 mmol/L Normal 21.0-32.0 [facility] Comment on above: Performed By: #### C PEPT #### [facility] [address] [place] [address] Dr. Stewart De La Cruz Creatinine [Mass/Vol] 1.43 mg/dL Critically high 0.70-1.30 [facility] Comment on above: Performed By: #### C PEPT #### [facility] [address] [place] [address] Dr. Stewart De La Cruz EGFR-AF ARGENTINE 60 mL/min/1.73m2 Normal >=60 [facility] Comment on above: Performed By: #### C PEPT #### [facility] [address] [place] [address] Dr. Stewart De La Cruz EGFR-NON AF ARGENTINE 49 mL/min/1.73m2 Critically low >=60 [facility] Comment on above: Performed By: #### C PEPT #### [facility] [address] [place] [address] Dr. Stewart De La Cruz Glucose [Mass/Vol] 293 mg/dL Critically high 74-106 [facility] Comment on above: Performed By: #### C PEPT #### [facility] [address] [address] [address] Stewart De La Cruz Potassium [Moles/Vol] 4.9 mmol/L Normal 3.5-5.1 [facility] Comment on above: Performed By: #### C PEPT #### [facility] [address] [address] [address] Stewart De La Cruz Sodium [Moles/Vol] 141 mmol/L Normal 136-145 [facility] Comment on above: Performed By: #### C PEPT #### [facility] [address] [address] [address] Stewart De La Cruz Urea nitrogen [Mass/Vol] 32.0 mg/dL Critically high 7.0-18.0 [facility] Comment on above: Performed By: #### C PEPT #### [facility] [address] [address] [address] Stewart De La Cruz Urea nitrogen/Creatinine [Mass ratio] 22.4 mg/mg Normal [facility] Comment on above: Performed By: #### C PEPT #### [facility] [address] [address] [address] Stewart De La [facility] mm/hr Normal <=20 [facility] Comment on above: Performed By: #### S EDR #### [facility] [address] [address] [address] Stewart De La Cruz RAD EGD - documentation only do not orderon 07-25-2022 RAD EGD - documentation only do not order [employer] Other Glucose Glucometer (dC) [M ass/Vol]Ordered By: Kike Bernal on 07-24-2022 Glucose [Mass/Vol] 275 mg/dL [facility] Comment on above: Random Glucose Refer ence Range is dependent on time and content of last meal. Glucose of more than 200 mg/dL in a nonstressed, ambulatory subject supports the diagnosis of Diabetes Mellitus. GLYCOHEMOGLOBIN A1Con 2021 ADA RECOMMENDATION SEE BELOW Normal [facility] [place] [facility] Comment on above: Result Comment: ADA RECOMMENDED LIMIT 4.0 - 6.0 ADA THERAPEUTIC TARGET < 7.0 ACTION SUGGESTED > 7.0 Performed By: #### A 1C #### [facility] [address] [place] [address] Dr. Stewart De La Cruz Glucose [Mass/Vol] 235 mg/dL Normal [facility] [place] [facility] Comment on above: Performed By: #### A 1C #### [facility] [address] [place] [address] Dr. Stewart De La Cruz HbA1c (Bld) [Mass fraction] 9.8 % Critically high 4.5-6.2 [facility] Comment on above: Performed By: #### A 1C #### [facility] [address] [place] [address] Dr. Stewart De La Cruz GLYCOHEMOGLOBIN A1Con 2021 ADA RECOMMENDATION SEE BELOW Normal [facility] Comment on above: Result Comment: ADA RECOMMENDED LIMIT 4.0 - 6.0 ADA THERAPEUTIC TARGET < 7.0 ACTION SUGGESTED > 7.0 Performed By: #### A 1C #### [facility] [address] [place] [address] Dr. Stewart De La Cruz Glucose [Mass/Vol] 197 mg/dL Normal [facility] [place] [facility] Comment on above: Performed By: #### A 1C #### [facility] [address] [place] [address] Dr. Stewart De La Cruz HbA1c (Bld) [Mass fraction] 8.5 % Critically high 4.5-6.2 [facility] Comment on above: Performed By: #### A 1C #### [facility] [address] [place] [address] Dr. Stewart De La Cruz PSA, FREE AND TOTAL RATIOon 01-28-2022 % Free PSA 30.0 % Normal [facility] Comment on above: Result Comment: The table [...] men. Performed By: #### P SAFREE #### [facility] [address] [address] [address] Stewart De La Cruz Prostate specific Ag [Mass/Vol] 0.1 ng/mL Normal 0.0-4.0 [facility] Comment on above: Result Comment: Nina CARBONEIA methodology. . According to the [place] [employer], Serum PSA should decrease and [...] disease. Performed By: #### P SAFREE #### [facility] [address] [place] [address] Dr. Stewart De La Cruz PSA, Free 0.03 ng/mL Normal N/A [facility] Comment on above: Result Comment: Nina de luna ECLIA methodology. Performed By: #### P SAFREE #### [facility] [address] [place] [address] Dr. Stewart De La Cruz GLYCOHEMOGLOBIN A1Con 2021 ADA RECOMMENDATION SEE BELOW Normal [facility] Comment on above: Result Comment: ADA RECOMMENDED LIMIT 4.0 - 6.0 ADA THERAPEUTIC TARGET < 7.0 ACTION SUGGESTED > 7.0 Performed By: #### A 1C #### [facility] [address] [address] [address] Stewart De La Cruz Glucose [Mass/Vol] 192 mg/dL Normal [facility] [place] [facility] Comment on above: Performed By: #### A 1C #### [facility] [address] [place] [address] Dr. Stewart De La Cruz HbA1c (Bld) [Mass fraction] 8.3 % Critically high 4.5-6.2 [facility] Comment on above: Performed By: #### A 1C #### [facility] [address] [place] [address] Dr. Stewart Cruz 02-01-2021 CNOV Office Visit (RADTSA ) -- MILAD SEYMOUR ([id number]) 1955 M Date Time Provider Department 02/01/21 [...] Fawad Diaz MD cc: Dank Campo MD ([facility]) [address] [place] [address] Dr. Petersen Portions of the above note extracted and edited from previous visit as well as active information included in the EMR. Referring Provider: Fawad DIAZ [[id number]] Allergies As of Date: 02/01/2021 (No Known Allergies) Date Reviewed: 02/01/2021 Reviewed by: Tila Herrera LPN - Fully Assessed Reason for Visit: Prostate Cancer [590] Primary Visit Diagnosis:Malignant neoplasm of prostate (HCC) [C61] Order(s):PSA/PROSTSPECAG DIAG [SQPSA] Order #: [id number] FUTURE Prescriptions as of 02/03/2021 - aspirin, [...] magnesium) t (more content not included)... Normal [facility] PSA, Diagnosticon 01-25-2021 PSA, Diagnostic 0.29 ng/mL Normal 0.00-2.59 [facility] Comment on above: Result Comment: Tota l PSA test methodology used is the Electrochemiluminescence Immunoassay. Performed By: #### P #### [address] [address] OBSOLETEon 12-22-2020 OBSOLETE Refill (RADTSA) -- MILAD SEYMOUR ([id number]) 1955 M Date Time Provider Department 12/22/20 [...] Encounter Status:Closed by TILA HERRERA on 01/04/21 [facility] CNOVon 11-03-2020 CNOV Office Visit (RADTSA ) -- MILAD SEYMOUR ([id number]) 1955 M Date Time Provider Department 11/03/20 4:00 PM LAB/PORT RADT ADAM COCHRAN During your visit today, we recorded the following information about you: Referring Provider: Fawad DIAZ [[id number]] Allergies As of Date: 11/03/2020 (No Known [...] Status:Closed by TILA HERRERA on 11/03/20 Normal [facility] CNOV Office Visit (RADTSA ) -- LIONMILAD Dalal ([id number]) 1955 M Date Time Provider Department 11/03/20 [...] ASSESSMENT/PLAN:DIAGNOSIS: Prostate adenocarcinoma, initial PSA 14.65, biopsy Garrison score 3 + 3 = 6 (grade [...] Fawad Diaz MD cc: Dank Campo MD ([facility]) [address] [place] [address] Dr. Petersen Referring Provider: Fawad DIAZ [[id number]] Allergies As of Date: 11/03/2020 (No Known Allergies) Date Reviewed: 11/03/2020 Reviewed by: Fawad Diaz MD - Fully Assessed Reason for Visit: Prostate Cancer [590] Primary Visit Diagnosis:Malignant neoplasm of prostate (HCC) [C61] Order(s):PSA/PROSTSPECAG DIAG [SQPSA] Order #: [id number] FUTURE Prescriptions as of 11/03/2020 Sig: TAMSULOSIN [...] 30 mg (more content not included)... Normal [facility] PSA, Diagnosticon 11-01-2020 PSA, Diagnostic 0.27 ng/mL Normal 0.00-2.59 [facility] Comment on above: Result Comment: Sandra manzo PSA test methodology used is the Electrochemiluminescence Immunoassay. Performed By: #### P SA #### [facility] [address], [place] [address] [facility] 10-29-2020 CNPN Telephone (ConnectivityA) -- MILAD SEYMOUR ([id number]) 1955 M Date Time Provider Department 10/29/20 [...] since completing radiation therapy. Call transferred to [facility] to move up appointment. Dr. Diaz, 07/27/20 [...] (HCC) [C61] Order(s):PSA/PROSTSPECAG DIAG [SQPSA] Order #: [id number] FUTURE Prescriptions as of 10/29/2020 Sig: TAMSULOSIN [...] Encounter Status:Closed by [facility] MILAD SEYMOUR ([id number]) 1955 M Date Time Provider Department 10/08/20 HEATHER BARRIGA During your visit today, we recorded the following information about you: Allergies As of Date: 10/08/2020 (No Known Allergies) Date Reviewed: 07/14/2020 Reviewed by: Joann Richardson - Fully Assessed Reason for Visit: Lab Orders [1688] Primary Visit Diagnosis:Iron deficiency anemia due to chronic blood loss [D50.0] Order(s):CBC + DIFF (FOR REMOTE [facility] USE) [SQRCBCDF] Order #: [id number] FUTURE COMP METABOLIC PANEL [SQCMP] Order #: [id number] FUTURE Prescriptions as of 10/08/2020 Sig: TAMSULOSIN [...] Encounter Status:Closed by TASHA GOOD on 10/14/20 Normal [facility] OBSOLETEon 09-20-2020 OBSOLETE Refill (RADTSA) -- MILAD SEYMOUR ([id number]) 1955 M Date Time Provider Department 09/20/20 [...] Status:Closed by TILA HERRERA on 10/14/20 Normal [facility] Vital Signs Date Time Vital Sign Value Performing Clinician Facility 08-15-2023 13:35-0500 Diastolic blood pressure 60 mm[Hg] Gregoria Ralph EXTERMINATION INSPECTOR-BEACH ATTENDANT Work Phone: [facility] [employer] [facility] 08-15-2023 13:35-0500 Systolic blood pressure 107 mm[Hg] Gregoria Ralph EXTERMINATION INSPECTOR-BEACH ATTENDANT Work Phone: [facility] [employer] [facility] 08-15-2023 13:33-0500 Body height 175.3 cm Gregoriamyah Ralph EXTERMINATION INSPECTOR-BEACH ATTENDANT Work Phone: [facility] [employer] [facility] 08-15-2023 13:33-0500 Body mass index (BMI) [Ratio] 36.77 kg/m2 Gregoriamyah Ralph EXTERMINATION INSPECTOR-BEACH ATTENDANT Work Phone: [facility] [employer] [facility] 08-15-2023 13:33-0500 Body weight 112.95 kg Gregoriamyah Ralph EXTERMINATION INSPECTOR-BEACH ATTENDANT Work Phone: [facility] 08-15-2023 13:33-0500 Heart rate 81 /min Gregoriamyah Ralph EXTERMINATION INSPECTOR-BEACH ATTENDANT Work Phone: [facility] 08-15-2023 13:33-0500 SaO2% (BldA) [Mass fraction] 95 % Gregoriamyah Ralph EXTERMINATION INSPECTOR-BEACH ATTENDANT Work Phone: [facility] [employer] [facility] 07-30-2023 11:16-0500 Body height 177.8 cm Ashli Petznick DO Work Phone: [facility] [employer] 07-30-2023 11:16-0500 Body mass index (BMI) [Ratio] 36.16 kg/m2 Ashli Petznick DO Work Phone: [facility] [employer] 07-30-2023 11:16-0500 Body temperature 98.01 [degF] Ashli Petznick DO Work Phone: [facility] [employer] 07-30-2023 11:16-0500 Body weight 114.31 kg Ashli Petznick DO Work Phone: [facility] [employer] 07-30-2023 11:16-0500 Diastolic blood pressure 62 mm[Hg] Ashli Petznick DO Work Phone: [facility] [employer] 07-30-2023 11:16-0500 Heart rate 66 /min Ashli Petznick DO Work Phone: [facility] 07-30-2023 11:16-0500 SaO2% (BldA) [Mass fraction] 97 % Ashli Petznick DO Work Phone: [facility] 07-30-2023 11:16-0500 Systolic blood pressure 116 mm[Hg] Ashli Petznick DO Work Phone: [facility] 07-17-2023 09:22-0500 Diastolic blood pressure 73 mm[Hg] MD Dank Campo Work Phone: [facility] 07-17-2023 09:22-0500 Heart rate 70 /min MD Dank Campo Work Phone: [facility] 07-17-2023 09:22-0500 Respiratory rate 18 /min MD Dank Campo Work Phone: [facility] 07-17-2023 09:22-0500 SaO2% (BldA) [Mass fraction] 97 % MD Dank Campo Work Phone: [facility] 07-17-2023 09:22-0500 Systolic blood pressure 173 mm[Hg] MD Dank Campo Work Phone: [facility] 07-17-2023 09:20-0500 Body height 177.8 cm MD Dank Campo Work Phone: [facility] 07-17-2023 09:20-0500 Body weight 111.13 kg MD Dank Campo Work Phone: [facility] 04-27-2023 12:40-0500 Diastolic blood pressure 68 mm[Hg] MD Dank Campo Work Phone: [facility] 04-27-2023 12:40-0500 Heart rate 75 /min MD Dank Campo Work Phone: [facility] 04-27-2023 12:40-0500 Respiratory rate 16 /min MD Dank Campo Work Phone: [facility] 04-27-2023 12:40-0500 SaO2% (BldA) [Mass fraction] 97 % MD Dank Campo Work Phone: [facility] 04-27-2023 12:40-0500 Systolic blood pressure 110 mm[Hg] MD Dank Campo Work Phone: [facility] 04-27-2023 10:29-0500 Body height 177.8 cm MD Dank Campo Work Phone: [facility] 04-27-2023 10:29-0500 Body weight 113.39 kg MD Dank Campo Work Phone: [facility] 04-10-2023 14:00-0400 Body height 177.8 cm Imad Asaad Other [employer] Other 04-10-2023 14:00-0400 Body mass index (BMI) [Ratio] 36.3 kg/m2 Imad Asaad Other [employer] Other 04-10-2023 14:00-0400 Body weight 114.76 kg Imad Asaad Other [employer] Other 04-10-2023 14:00-0400 Diastolic blood pressure 68 mm[Hg] Imad Asaad Other [employer] Other 04-10-2023 14:00-0400 Systolic blood pressure 113 mm[Hg] Imad Asaad Other [employer] Other 02-12-2023 09:46-0400 Blood Pressure Location Peterson PETERSEN [facility] 02-12-2023 09:46-0400 Diastolic blood pressure 90 mm[Hg] Peterson PETERSEN [facility] 02-12-2023 09:46-0400 Heart rate 68 /min Peterson PETERSEN [facility] 02-12-2023 09:46-0400 Respiratory rate 16 /min Peterson PETERSEN [facility] 02-12-2023 09:46-0400 Systolic blood pressure 138 mm[Hg] Peterson PETERSEN [facility] 07-24-2022 13:52-0500 Diastolic blood pressure 78 mm[Hg] MD Dank Campo Work Phone: [facility] 07-24-2022 13:52-0500 Heart rate 71 /min MD Dank Campo Work Phone: [facility] 07-24-2022 13:52-0500 Respiratory rate 16 /min MD Dank Campo Work Phone: [facility] 07-24-2022 13:52-0500 SaO2% (BldA) [Mass fraction] 96 % MD Dank Campo Work Phone: [facility] 07-24-2022 13:52-0500 Systolic blood pressure 136 mm[Hg] MD Dank Campo Work Phone: [facility] 07-24-2022 12:29-0500 Body height 177.8 cm MD Dank Campo Work Phone: [facility] 07-24-2022 12:29-0500 Body temperature 98 [degF] MD Dank Campo Work Phone: [facility] 07-24-2022 12:29-0500 Body weight 115.66 kg MD Dank Campo Work Phone: [facility] 07-20-2022 10:00-0500 Body height 177.8 cm Imad Asaad Other [employer] Other 07-20-2022 10:00-0500 Body mass index (BMI) [Ratio] 36.73 kg/m2 Imad Asaad Other [employer] Other 07-20-2022 10:00-0500 Body weight 116.12 kg Imad Asaad Other [employer] Other 07-20-2022 10:00-0500 Diastolic blood pressure 96 mm[Hg] Imad Asaad Other [employer] Other 07-20-2022 10:00-0500 Systolic blood pressure 170 mm[Hg] Imad Asaad Other [employer] Other 02-03-2022 08:29-0400 Blood Pressure Location [employer] [facility] 02-03-2022 08:29-0400 Diastolic blood pressure 88 mm[Hg] Peterson PETERSEN [facility] 02-03-2022 08:29-0400 Heart rate 75 /min Peterson PETERSEN [facility] 02-03-2022 08:29-0400 Respiratory rate 16 /min Peterson PETERSEN [facility] 02-03-2022 08:29-0400 Systolic blood pressure 138 mm[Hg] Peterson PETERSEN [facility] Encounters Encounter Date Encounter Type Care Provider Facility Start: 02-04-2024 ambulatory Peterson Graciela Wells ty:NOREEN Day Start: 10-01-2023 End: 10-02-2023 ambulatory Roma Lopez MD Facility:[facility] Start: 09-27-2023 End: 09-27-2023 ambulatory DEXTER KRISHNAMURTHY Not Available Start: 09-05-2023 End: 09-05-2023 ambulatory DEXTER KRISHNAMURTHY Not Available Start: 08-29-2023 End: 08-29-2023 ambulatory DANK CAMPO Not Available Start: 08-27-2023 Telephone encounter Aliza whaley [facility] Start: 08-23-2023 End: 08-24-2023 ambulatory GREGORIA RALPH [facility] Lois kenny Start: 08-22-2023 End: 08-22-2023 ambulatory Imad Asaad Facility:[facility] Start: 08-20-2023 End: 08-20-2023 ambulatory Dank Campo Facility:[facility] Start: 08-17-2023 Telephone encounter Gregoria shields EXTERMINATION INSPECTOR-BEACH ATTENDANT Work Phone: [facility] - [facility] Disorders Comment on above: Sleep Lab ([facility]) Start: 08-15-2023 End: 08-15-2023 ambulatory [facility] Start: 08-15-2023 End: 08-15-2023 Office outpatient visit 25 minutes Gregoria Ralph EXTERMINATION INSPECTOR-BEACH ATTENDANT Work Phone: [facility] Comment on above: Personal history of tobacco use, presenting hazards to health (Primary Dx); Obstructive sleep apnea syndrome; CSA (central sleep apnea) Start: 08-09-2023 End: 08-09-2023 ambulatory Dank Campo Facility:[facility] Start: 08-09-2023 End: 08-09-2023 ambulatory MD Dank Campo Work Phone: [facility] Work Phone: Start: 08-09-2023 End: 08-09-2023 Patient encounter procedure MD Dank Campo Work Phone: [facility] [employer] Work Phone: Start: 08-02-2023 Telephone encounter Aliza Annamarie [facility]di [facility] Start: 08-01-2023 Chart [...] (BMI) of 36.0 to 36.9 in adult ([facility]) (Primary Dx); Type 2 diabetes mellitus with diabetic polyneuropathy, with long-term current use of insulin ([facility]) Start: 07-24-2023 End: 07-24-2023 ambulatory Edd Holden Facility:[facility] Start: 07-24-2023 End: 07-24-2023 Patient encounter procedure MD Dank Campo Work Phone: [facility] C[facility]-XRay [place] Work Phone: Start: 07-17-2023 End: 07-17-2023 ambulatory Dank Campo Facility:[facility] Start: 07-17-2023 End: 07-17-2023 ambulatory MD Dank Campo Work Phone: [facility] Work Phone: Start: 07-17-2023 End: 07-17-2023 Patient encounter procedure MD Dank Campo Work Phone: [facility] [place] Work Phone: Start: 06-26-2023 End: 06-26-2023 ambulatory MD Dank Campo Work Phone: [facility] Work Phone: Start: 06-26-2023 End: 06-26-2023 Patient encounter procedure MD Dank Campo Work Phone: [facility]-MRI [address] Work Phone: Start: 06-07-2023 End: 06-07-2023 ambulatory DANK CAMPO Not Available Start: 05-14-2023 End: 05-14-2023 ambulatory EDD HOLDEN Not Available Start: 05-09-2023 End: 05-09-2023 ambulatory DEXTER KRISHNAMURTHY Not Available Start: 05-04-2023 End: 05-04-2023 ambulatory ASHLI ROSS Not Available Start: 05-02-2023 End: 05-02-2023 ambulatory DEXTER KRISHNAMURTHY Not Available Start: 04-30-2023 End: 05-01-2023 ambulatory EDD HOLDEN Not Available Start: 04-27-2023 End: 04-27-2023 ambulatory Imad Asaad Facility:[facility] Start: 04-27-2023 End: 04-27-2023 Admission to same day surgery center MD Dank Campo Work Phone: [facility] C[facility]-Digestive Health Work Phone: Start: 04-27-2023 End: 04-27-2023 ambulatory MD Dank Campo Work Phone: [facility] Work Phone: Start: 04-10-2023 End: 04-10-2023 ambulatory Imad Asaad Other [employer] Other Start: 04-10-2023 Office outpatient ne w 45 minutes Imad Asaad [facility] Start: 03-20-2023 End: 03-20-2023 ambulatory Imad Asaad Other [employer] Other Start: 03-20-2023 Telephone encounter Imad Asaad [facility] Start: 02-12-2023 End: 02-13-2023 ambulatory Peterson PETERSEN Facility:[facility] Start: 02-12-2023 End: 02-12-2023 Patient encounter procedure Peterson PETERSEN [facility] Start: 02-06-2023 End: 02-07-2023 ambulatory ROSALVA E JINA Facility:[facility] Start: 02-06-2023 End: 02-06-2023 Lab Drop off ROSALVA Annamarie TATERY [facility] Start: 02-06-2023 End: 02-06-2023 Patient encounter procedure DEJUAN NICOLA [facility] Start: 12-26-2022 End: 12-27-2022 ambulatory ROSALVA E JINA Facility:[facility] Start: 11-28-2022 End: 11-29-2022 ambulatory ROSALVA E JINA Facility:[facility] Start: 10-17-2022 End: 10-18-[address] DANK CAMPO Facility:[facility] Start: 09-20-2022 End: 09-20-2022 ambulatory Imad Asaad Other [employer] Other Start: 09-20-2022 Telephone encounter Imad Asaad [facility] Start: 09-14-2022 End: 09-14-[address] DANK CAMPO Facility:[facility] Start: 09-12-2022 End: 09-13-[address] DANK CAMPO Facility:[facility] Start: 07-24-2022 Telephone encounter Imad Asaad [facility] Start: 07-24-2022 End: 07-24-2022 Admission to same day surgery center MD Dank Campo Work Phone: [facility] Work Phone: Start: 07-24-2022 End: 07-24-2022 ambulatory MD Dank Campo Work Phone: [facility] Work Phone: Start: 07-20-2022 End: 07-20-2022 ambulatory Imad Asaad Other [facility] [employer] Other Start: 07-20-2022 Patient encounter procedure Imad Asaad [facility] Start: 05-10-2022 End: 05-11-[address] DANK CAMPO Facility:[facility] Start: 04-14-2022 End: 04-15-[address] SORIN SHORE Facility:[facility] Start: 02-03-2022 End: 02-03-2022 Patient encounter procedure Peterson PETERSEN [facility] Start: 01-30-2022 End: 01-31-2022 ambulatory MR REBECCA KING . Facility:[facility] Start: 01-27-2022 End: 01-28-[address] PETERSON PETERSEN . Facility: Procedures Date Procedure Procedure Detail Performing Clinician Start: 07-30-2023 Hemoglobin glycosylated a1c Ashli green DO Work Phone: Start: 07-24-2023 CT of left shoulder with contrast MD Reina Campo Work Phone: Start: 04-27-2023 End: 04-27-2023 Colonoscopy MD Dank Campo Work Phone: Start: 07-24-2022 Esophagogastroduodenoscopy MD Dank Mckinley er Work Phone: Start: 03-18-2021 Laparoscopic cholecystectomy Peterson [...] 04-27-2033 Screening for malignant neoplasm of colon [facility] Start: 01-20-2031 DTaP,Tdap and Td Vaccines (3 - Td or Tdap) DTaP,Tdap and Td Vaccines (3 - Td or Tdap) [facility] Start: 08-15-2024 Adult BMI Screening Adult BMI Screening [facility] Start: 08-15-2024 Tobacco Screening Tobacco Screening [facility] Start: 02-25-2024 End: 02-25-2024 Patient encounter procedure 02/25/2024 10:30 AM EDT [facility] [address] [place] [address] Hanna Laguerre MD [address] [place] [address] [facility] Start: 11-19-2023 End: 11-19-2023 Clinical Support 11/19/2023 8:00 PM EDT Clinical Support [facility] [address] [place], [place] [address] [phone] [facility] Start: 10-29-2023 End: 10-29-2023 Patient encounter procedure 10/29/2023 1:15 PM EDT Office Visit [facility] [address] [place] [address] Ashli Ross, DO [address] [place] [address] [facility] [address] Start: 10-28-2023 Hemoglobin A1c measurement Diabetes: Hemoglobin A1C [facility] Start: 08-29-2023 End: 08-29-2023 Patient encounter procedure 08/29/2023 7:45 AM EDT Office Visit [facility] [address] [place] [phone] Dank Campo MD [address] [place] [address] [facility] Start: 08-23-2023 End: 08-23-2023 Patient encounter procedure [facility] Start: 08-15-2023 End: 08-15-2024 CT Chest for screening WO contrast CT low dose lung screenin (3mo 6mo follow-up) Imaging Routine Personal history of tobacco use, presenting hazards to health Expected: 08/15/2023, Expires: 08/15/2024 [employer] Work Phone: Comment on above: Expected: 08/15/2023, Expires: 5 Start: 08-15-2023 End: 08-15-2024 Echo complete W/O contrast Echo complete W/O contrast Echocardiography Routine Obstructive sleep apnea syndrome CSA (central sleep apnea) Expected: 08/15/2023, Expires: 08/15/2024 [facility] [employer] Comment on above: Expected: 08/15/2023, Expires: Start: 08-09-2023 End: 08-09-2023 Patient encounter procedure 08/09/2023 8:30 AM EST Office Visit [facility] [address] [place] [phone] Dexter Krishnamurthy DPM [address] [place] [address] [facility] Start: 08-01-2023 End: 08-01-2023 Patient encounter procedure 08/01/2023 10:30 AM EST Office Visit [facility] [address] [facility] [place] [phone] Jr. Johanne Hdez, DO [address] [place] [address] [facility] Start: 04-27-2023 [facility] Start: 04-11-2023 Administration of varicella zoster vaccine Zoster (Shingles) Vaccine (3 of 3) [facility] Start: 02-16-2023 COVID-19 Vaccine ( season) COVID-19 Vaccine ( season) [facility] Start: 02-16-2023 COVID-19 Vaccine ( season) COVID-19 Vaccine () [facility] Start: 02-16-2023 Influenza vaccination Influenza Vaccine [facility] Start: 07-24-2022 [facility] Start: 04-15-2022 Adult BMI Screening Adult BMI Screening [facility] Start: 09-15-2020 Fall Risk Screening Fall Risk Screening [facility] Start: 09-15-1974 Urine screening for protein Diabetes: Urine Protein Screening [facility] Start: 09-15-1973 Adult BMI Follow Up Plan Adult BMI Follow Up Plan [facility] Start: 1967 Depression Screening Depression Screening [facility] Start: 1967 Tobacco Screening Tobacco Screening [facility] Start: 09-15-1965 Glaucoma screening Diabetes: Retinopathy Screening [facility] Start: 1955 Medicare Annual Wellness (AWV) Medicare Annual Wellness (AWV) [facility] Start: 1955 Screening for malignant neoplasm of colon [facility] Patient Education [facility] Work Phone: End: 08-15-2024 Polysomnography 4 or more parameters with PAP titration Polysomnography 4 or more parameters with PAP titration Sleep Center Routine Obstructive sleep apnea syndrome CSA (central sleep apnea) 1 Occurrences starting 08/15/2023 until 08/15/2024 [facility] Comment on above: 1 Occurrences starting 08/15/2023 until 08/15/2024 Immunizations Immunization Date Immunization Notes Care Provider Kiera johnston 04-22-2023 zoster vaccine recombinant Ashli Petznick DO Work Phone: [facility] 03-23-2023 RSV, recombinant, protein subunit RSVpreF, adjuvant reconstitu, 120mcg/0.5mL, PF (Arexvy) Ashli Petznick DO Work Phone: [facility] 02-14-2023 Influenza, Seasonal, Quadrivalent, Adjuvanted Ashli Petznick DO Work Phone: [facility] 02-14-2023 zoster vaccine recombinant Ashli Petznick DO Work Phone: [facility] 02-14-2023 influenza virus vaccine, unspecified formulation [facility] 02-14-2023 zoster vaccine, unspecified formulation [facility] 04-09-2022 COVID-19 mRNA Bivale nt Booster (Pfizer) MD Dank Campo Work Phone: [facility] 04-09-2022 Influenza, Seasonal, Quadrivalent, Adjuvanted Sahli Petznick DO Work Phone: [facility] 04-13-2021 COVID-19 mRNA, Comirnaty (Pfizer) MD Dank Campo Work Phone: [facility] 02-22-2021 Influenza, Seasonal, Quadrivalent, Adjuvanted Ashli Petznick DO Work Phone: [facility] 02-22-2021 pneumococcal polysaccharide vaccine, 23 valent Ashli Petznick DO Work Phone: [facility] 01-20-2021 tetanus and diphther ia toxoids, adsorbed, preservative free, for adult use (5 Lf of tetanus toxoid and 2 Lf of diphtheria toxoid) Imad Asaad Other [employer] Other 01-17-2021 influenza, seasonal, injectable Ashli Petznick DO Work Phone: [facility] 01-17-2021 Moderna SARS-CoV-2 Vaccination Ashli Petznick DO Work Phone: [facility] 10-16-2020 SARS-CoV-2 (COVID-19 ) mRNA BNT-162b2 vax Peterson PETERSEN [facility] 10-01-2020 COVID-19 mRNAAlfred (Pfizer) MD Dank Campo Work Phone: [facility] 09-08-2020 COVID-19 mRNAAlfred (Pfizer) MD Dank Campo Work Phone: [facility] 02-17-2020 influenza, injectabl e, quadrivalent, preservative free Ashli Petznick DO Work Phone: [facility] 02-09-2020 influenza, high dose seasonal, preservative-free Ashli Petznick DO Work Phone: [facility] 03-15-2019 influenza, injectabl e, quadrivalent, preservative free Ashli Petznick DO Work Phone: [facility] 02-25-2018 influenza, injectabl e, quadrivalent, preservative free Ashli Petznick DO Work Phone: [facility] 05-30-2017 pneumococcal conjuga te vaccine, 13 valent Ashli Petznick DO Work Phone: [facility] 05-30-2017 pneumococcal polysaccharide vaccine, 23 valent Ashli Petznick DO Work Phone: [facility] 03-02-2017 influenza nasal, unspecified formulation Ashli Petznick DO Work Phone: [facility] 03-02-2017 influenza virus vaccine, unspecified formulation [facility] 03-02-2017 influenza, injectabl e, quadrivalent, preservative free Ashli Petznick DO Work Phone: [facility] 03-05-2016 influenza, injectabl e, quadrivalent, preservative free Ashli Petznick DO Work Phone: [facility] 03-05-2016 influenza, seasonal, injectable Ashli Petznick DO Work Phone: [facility] 02-18-2015 zoster vaccine, live Ashli Petznick DO Work Phone: [facility] 02-01-2015 influenza, seasonal, injectable Ashli Petznick DO Work Phone: [facility] 08-18-2014 tetanus toxoid, redu inocencio diphtheria toxoid, and acellular pertussis vaccine, adsorbed Ashli Petznick DO Work Phone: [facility] 08-04-2013 pneumococcal conjuga te vaccine, 13 valent Ashli Petznick DO Work Phone: [facility] Payers Date Payer Category Payer Self-pay [id number] 2023 Unknown [id number] 2020 Medicare [id number] 2013 Unknown [id number]. 1.13.424.2.7.3.678 [id number] 1959 Medicare [id number] 1955 Unknown [id number] 2.16.840.1.091969.3.579.2.593 1955 Unknown [id number] 2.16.840.1.052711.3.579.2.593 1955 Unknown [id number] 2.16.840.1.470945.3.579.2.593 1955 Unknown [id number] 2.16.840.1.704666.3.579.2.593 1955 Unknown [id number] 2.16.840.1.338767.3.579.2.593 1955 Unknown [id number] 2.16.840.1.736138.3.579.2.593 1955 Unknown [id number] 2.16.840.1.898388.3.579.2.593 1955 Unknown [id number] 2.16.840.1.608318.3.579.2.593 1955 Unknown [id number] 2.16.840.1.724330.3.579.2.1286 1955 Unknown [id number] 2.16.840.1.496641.3.579.2.1286 1955 Unknown [id number] 2.16.840.1.566947.3.579.2.1286 1955 Unknown [id number] 2.16.840.1.052496.3.579.2.1259 1955 Unknown [id number] 2.16.840.1.044148.3.579.2.1259 1955 Unknown [id number] 2.16.840.1.311710.3.579.2.1259 1955 Unknown [id number] 2.16.840.1.702054.3.579.2.1259 1955 Unknown [id number] 2.16.840.1.577501.3.579.2.1259 1955 Unknown [id number] 2.16.840.1.535268.3.579.2.1259 1955 Unknown [id number] 2.16.840.1.666401.3.579.2.1259 1955 Unknown [id number] 2.16.840.1.012591.3.579.2.1259 1955 Unknown [id number] 2.16.840.1.854044.3.579.2.1259 1955 Unknown [id number] 2.16.840.1.029510.3.579.2.1259 1955 Unknown [id number] 2.16.840.1.225724.3.579.2.1259 1955 Unknown [id number] 2.16.840.1.025516.3.579.2.1259 1955 Unknown [id number] 2.16.840.1.337317.3.579.2.1259 1955 Unknown [id number] 2.16.840.1.042808.3.579.2.727 1955 Unknown [id number] 2.16.840.1.376290.3.579.2.727 1955 Unknown [id number] 2.16.840.1.692741.3.579.2.727 1955 Unknown [id number] 2.16.840.1.536644.3.579.2.727 1955 Unknown [id number] 2.16.840.1.803864.3.579.2.727 1955 Unknown [id number] 2.16.840.1.314010.3.579.2.727 1955 Unknown [id number] 2.16.840.1.531472.3.579.2.727 1955 Unknown [id number] 2.16.840.1.155604.3.579.2.196 Medicare Medicare [id number] Unknown [place] BC/BS [id number] Unknown Regular Insurance [id number] Unknown [id number] 2.16.840.1.064344.3.579.2.531 Unknown [id number] 2.16.840.1.417462.3.579.2.531 Unknown [id number] 2.16.840.1.757446.3.579.2.531 Unknown [id number] 2.16.840.1.136332.3.579.2.531 Unknown [id number] 2.16.840.1.784709.3.579.2.531 Unknown [id number] 2.16.840.1.641223.3.579.2.531 Worker's Compensation [employer] [id number] Worker's Compensation [id number] Social History Date Type Detail Facility Start: 02-03-2022 End: 08-15-2023 Ex-smoker (finding) [facility] Start: 06-29-2020 End: 01-09-2023 Male [facility] Start: 1955 Sex Assigned At Male F [facility] Start: 06-18-1974 End: 2021 History of [...] to any clubs or organizations such as temple groups, unions, fraternal or athletic groups, or [...] -6 months agoHeavy cigarette smoker (20-39 cigs/day) [facility] Start: 05-01-2023 Alcohol Comment Caffeine intake: non e [facility] Start: 1955 Sex Assigned At Not on file [facility] Start: 12-22-2020 Tobacco smoking stat [facility] Smokes tobacco daily [facility] Start: 04-15-2021 End: 08-16-2023 Alcohol intake Current non-drinker of alcohol (finding) [facility] Medical Equipment Procedure Code Equipment Code Equipment Origin al Text Equipment Identifier Dates EGD (esophagogastroduod enoscopy) Video capsule endoscopy system [id number] -DDC-B FDA Start: 08-18-2020 USE DIRECTED FOUR TIMES DAILY [id number] Start: 10-09-2022 use to test BLOO D SUGAR THREE TIMES DAILY [id number] Start: 09-19-2022 use to test BLOO D SUGAR THREE TIMES DAILY [id number] Start: 11-01-2022 [employer] 4.75 - Sna - [id number] Start: 12-10-2017 Inc[employer]/Swivelock 4.75 Use [id number] - Sna - [id number] Start: 07-19-2020 Goals Date Patient Goal Desired Activity /State Personal health goal Comment on above: Formatting of this n ote might be different from the original. Evaluation of progress towards goal: Home self care with childrens support Functional Status Date Assessment Result Facility 02-12-2023 Functional Status N/A [facility] 02-03-2022 N/A [facility] Clinical Notes 11-04-2020 to 08-27-2023 Telephone Encounter - Aliza Escalera - 08/27/2023 10:11 AM EDTTelephone Encounter - Aliza Escalera - 08/27/2023 10:11 AM EDTTelephone Encounter - Zoraida Abraham - 08/17/2023 9:53 AM EST Note Date & Type Note Facility 08-27-2023 Miscellaneous Notes ----- Message from SONNY Denis sent at 08/24/2023 10:25 AM EST ----- EF >45% ok for ASV Noted below in sleep lab encounter and on appt desk for techs for titration appt [facility] Telephone encounter Note ----- Message from SONNY Denis sent at 08/24/2023 10:25 AM EST ----- EF >45% ok for ASV [facility] 08-27-2023 Telephone encounter Note Noted below in sleep lab encounter and on appt desk for techs for titration appt [facility] 08-17-2023 Miscellaneous Notes 08/15 received CPAP order 08/16 Scheduled CPAP at [facility] 6 Confirmation mailed and emailed [employer] CPAP order and 08/15 Kregel notes in epic With TCO2 monitoring. Please obtain baseline in supine position. Starting pressure IPAP25 EPAP10 PS 5 notes CSA on last download plans for Echo prior to titration documented in this encounter [employer] 08-17-2023 Telephone encounter Note 08/15 received CPAP order 08/16 Scheduled CPAP at [facility] 6 Confirmation mailed and emailed [employer] CPAP order and 08/15 Kregel notes in epic With TCO2 monitoring. Please obtain baseline in supine position. Starting pressure IPAP25 EPAP10 PS 5 notes CSA on last download plans for Echo prior to titration [employer] 08-15-2023 History of Presen t illness Narrative [...] humidifier. Cleaning supplies with soap and water. Roca Sleepiness Scale: Sitting and Reading: (!) Moderate [...] Anemia Unknown Arthritis Benign prostatic hyperplasia Cancer ([facility]) PROSTATE COPD (chronic obstructive pulmonary disease) ([facility]) Unknown Diabetes mellitus type 2, controlled ([facility]) GERD (gastroesophageal reflux disease) History of placement [...] Titration: 03/21/19 PS08/2014 w/ AHI 95 DME: [employer] Data card was available for PAP usage [...] of tobacco use, presenting hazards to health - CT low dose lung screenin (3mo [...] Standing Expiration Date: 08/15/2024 Order Specific Question: [facility] required diagnosis: Answer: Personal history of nicotine [...] titration Order Specific Question: Follow Up Answer: [facility] Sleep Medicine to read and follow patient. [...] not to drive if sleepy, and to machine puller if sleepiness occurs while driving. Above [...] errors that have escaped final proofreading. Gregoria Ralph [facility] Office: [phone] 2:57 PM on 08/15/2023 CC: MD Gregoria GONZALEZ APRN-CNP 08/16/23 [id number] documented in this encounter [facility] 08-15-2023 Instructions SONNY Denis - 08/15/2023 1:15 PM EST If you re looking for general health and wellness resources, please visit [facility] [email or web address] [email or web address]. documented in this encounter [facility] 08-02-2023 Miscellaneous Notes Received sleep referral from Valeria Mckeon NP. Pt is already an established pt and last saw SK in 2020- was recommended to follow up with KW. However he was a no show for his last 2 appt with our office. Chat to Tahmina to advise if still to schedule appt. documented in this encounter [employer] 08-02-2023 Telephone encounter Note Received sleep referral from Valeria Mckeon NP. Pt is already an established pt and last saw SK in 2020- was recommended to follow up with KW. However he was a no show for his last 2 appt with our office. Chat to Tahmina to advise if still to schedule appt. [employer] 07-30-2023 History of Presen t illness Narrative Associated Problem(s): Type 2 diabetes mellitus with diabetic polyneuropathy, with long-term current use of insulin ([facility]) During the appointment today all pertinent labs, [...] Breakfast Lunch Dinner Snacks Drinks Premade meal ([place] and dressing) (Mac and cheese) Protein shake [...] polyneuropathy, with long-term current use of insulin ([facility]) During the appointment today all pertinent labs, [...] (BMI) of 36.0 to 36.9 in adult ([facility]) - Primary Follow up in about 3 [...] ( MAX 100 UNITS A DAY) LANCETS ([employer]Clip[employer] DELICA PLUS [id number]) MISC use to test BLOOD SUGAR THREE TIMES [...] ER 50 mg tablet,extended release 24 hr [employer] ULTRA TEST STRIP use to test BLOOD SUGAR THREE TIMES DAILY SIMVASTATIN (ZOCOR) 40 MG TABLET Take 40 mg by mouth in the morning and 40 mg before bedtime. SPIRONOLACTONE (ALDACTONE) 50 MG TABLET TAKE 1 TABLET BY MOUTH DAILY Modified Medications No medications on file Discontinued Medications CONTINUOUS BLOOD GLUC SENSOR (FREESTYLE CORNELIUS 2 SENSOR) MISC Use as directed LOPERAMIDE (IMODIUM) 2 MG CAPSULE Take 2 mg by mouth in the morning and 2 mg before bedtime. METHOCARBAMOL (ROBAXIN) 750 MG TABLET Take 1 tablet (750 mg) by mouth in the morning and 1 tablet (750 mg) at noon and 1 tablet (750 mg) in the evening and 1 tablet (750 mg) before bedtime. documented in this encounter [facility] 04-27-2023 Procedure note [facility] 04-10-2023 Evaluation note Encounter Date Diagnosis Assessment Notes Mar, GERD (gastroesophage al reflux disease) (ICD-10 - K21.9) The patient continues to complain of ongoing regurgitation. He is taking Lansoprazole 30 mg dialy & we will increase this to 30 mg bid. Mar, Hemorrhoids (ICD-10 - K64.9) Mar, Alternating constipation and diarrhea (ICD-10 - R19.8) [employer] Other 10-03-2023 Evaluation note* Encounter Date Diagnosis Assessment Notes Treatment Notes Treatment Clinical Notes Mar, Gastroesophageal ref lux disease with esophagitis (ICD-10 - K21.0) [employer] Other 08-28-2023 Hospital Discharge instructions Patient Education [...] similar to normal prostate cells (well differentiated). Garrison 7: This indicates that the cancer cells look somewhat similar to normal prostate cells (moderately differentiated). Garrison 8, 9, or 10: This indicates that [...] stress of having cancer. General instructions Take trky-iah-ivkniiu and prescription medicines only as told by your health care provider. If you have to go to the hospital, notify your cancer specialist (oncologist). Keep all follow-up visits. This is important. Where to find more information [place] [employer]: www.cancer.org [place] [employer] Oncology: www.cancer.net [employer] Grants: www.cancer.gov Contact a health care provider if: [...] provider. Document Revised: 08/31/2021 Document Reviewed: 08/31/2021 [employer] Patient Education 2022 [employer]. Follow Up Care 02/03/2022 09:06:37 With:NICOLA RAYMUNDO, Peterson Owens, URL Address: [facility] [address] , [place] [address]- [phone] When: Unknown Comments:1 yr w/ PSA [facility] 04-05-2023 Evaluation note* Encounter Date Diagnosis Assessment Notes Treatment Notes Treatment Clinical Notes Sep, Gastroesophageal ref lux disease with esophagitis (ICD-10 - K21.0) [employer] Other [facility]* Encounter Date Diagnosis Assessment Notes Treatment Notes Treatment Clinical Notes Jul, Diarrhea (ICD-10 - R19.7) Jul, GERD (gastroesophageal reflux disease) (ICD-10 - K21.9) Jul, Hemorrhoids (ICD-10 - K64.9) PATIENT TO START ANUSOL CREAM USE SITZ BATH NEEDED Jul, Dysphagia (ICD-10 - R13.10) [employer] Other 10-28-2022 NotePROCEDURE: XR FOOT RT MIN 3 VIEWS COMPARISON: None. HISTORY: Pain in right foot FINDINGS: BONES:No acute fracture or dislocation. Persistent hammertoe deformities. Moderate hallux valgus. 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 Bulky enthesopathic spurring of the calcaneus SOFT TISSUES:Negative. No visible soft tissue swelling. EFFUSION:None visible. OTHER: Negative. IMPRESSION: Degenerative changes Electronically authenticated by: SORIN SHORE Date: 2022-04-14 18:01[facility]08-19-2022 Hospital Discharge instructions Patient Education 02/03/2022 08:55:56 [...] urethra. Follow these instructions at home: Take fwcy-awp-gkgnpod and prescription medicines only as told by [...] 06/04/2006 Document Revised: 04/29/2019 Document Reviewed: 07/09/2017 [employer] Patient Education 2019 [employer]. Follow Up Care 08/05/2021 10:59:30 With:NICOLA RAYMUNDO, Peterson Owens, URL Address: [facility] [address], [place] [address]- When:1 year Comments:W/ PSA [facility] [place] 08-17-2021 NoteHNO ID: [id number] Author: Fawad Diaz MD Service: ? Author [...] ASSESSMENT/PLAN:DIAGNOSIS: Prostate adenocarcinoma, initial PSA 14.65, biopsy Garrison score 3 + 3 = 6 (grade [...] Fawad Diaz MD cc: Dank Campo MD ([facility]) [address] [place] [address] Dr. Petersen Portions of the above note extracted and edited from previous visit as well as active information included in the EMR.[facility] 11-04-2020 NoteHNO ID: [id number] Author: Fawad Diaz MD Service: ? Author Type: Physician Type: Progress Notes Filed: 11/04/2020 9:44 AM Note Text: Radiation Oncology - Follow Up Note PATIENT NAME: Milad Seymour PATIENT DIAGNOSIS: DIAGNOSIS: Prostate adenocarcinoma, initial PSA 14.65, biopsy Garrison score 3 + 3 = 6 (grade [...] Fawad Diaz MD cc: Dank Campo MD ([facility]) [address] [place] [address] [place] [address] Dr. [facility] Future Appointments Appointment Date:02/12/2023 09:15:00 AM Scheduled Provider:Peterson PETERSEN MD Location:[facility] Appointment Type:URO Office Visit Diagnostic Tests Pending * PSA Total 02/03/22 [facility] evaluation + Plan note Future Appointments Appointment Date:02/12/2023 09:15:00 AM Scheduled Provider:Peterson PETERSEN MD Location:[facility] Appointment Type:URO Office Visit [facility] evaluation + Plan note Future Appointments Appointment Date:02/15/2024 08:15:00 AM Scheduled Provider:Peterson PETERSEN MD Location:[facility] Appointment Type:URO Office Visit Diagnostic Tests Pending * PSA Total 02/12/23 [facility] evaluation noteNo assessment information available [facility] [employer] Work Phone: evaluation noteNo InformationNort M:Metrics Other Evalupibee note* Diagnosis Class 2 severe obesity due to excess calories with serious comorbidity and body mass index (BMI) of 36.0 to 36.9 in adult ([facility])- Primary Type 2 diabetes mellitus with diabetic polyneuropathy, with long-term current use of insulin ([facility]) [facility] Diagnosis Onset Date Resolution Status H/O rotator cuff surgery acu te [facility] Work Phone: evaluation note* Diagnosis Personal history of tobacco use, presenting hazards to health- Primary Obstructive sleep apnea syndrome Obstructive sleep apnea (adult) (pediatric) CSA (central sleep apnea) Unspecified sleep apnea documented [facility] Author Kike Bernal [facility] July 24, 2022 1:05pm Note Date/Time July 24, 2022 1 :05pm [facility] [address] [place] [address] Gastroenterology H&P Signed Patient: Milad Seymour MR#: [id number] : 1955 Acct:[id number] Age/Sex: 66 / M Adm Date: 3 Loc: Room: Type: [facility] Attending Dr: Kike Bernal MD Copies [...] <Electronically signed by Kike Bernal MD> 07/24/22 7333 [facility] Work Phone: History and physical note Author Kike Bernal [facility] April 27, 2023 11:41am Note Date/Time April 27, 2023 11:41am [facility] [address] [place] [address] Gastroenterology H&P Signed Patient: Milad Seymour MR#: [id number] : 1955 Acct:[id number] Age/Sex: 67 / M Adm Date: 3 Loc: Room: Type: [facility] Attending Dr: Kike Bernal MD Copies [...] signed by Kike Bernal MD> 04/27/23 1141 [facility] Work Phone: History general Narrative - [...] History none in the last year 20 [employer] Other Hospital course Narrative No data available for this section [facility] Hospital Discharge instructions Additional Instructions DISCHARGE [...] problems. -Follow up with PCP. -Office number [phone]. [facility] Work Phone: Hospital Discharge instructions No data available for this section [facility] Hospital Discharge instructions Additional Instructions DISCHARGE [...] NOT operate machinery such as power tools, [employer] mowers, snow blowers, sewing machines, etc. for [...] in the office as scheduled -Office number [phone]. [facility] Work Phone: InstructionsNot on filedocumented in this encounter [facility]Not on filedocumented in this encounter [facility] No data available for this section [facility] Summary Purpose Family History No Family History [...] Date/ Time Advance Directives No October 11, 2 018 1:12pm Latest Code Status on File [...] Referral Specialty Diagnoses / Procedures Referred By Anabel t Referred To Contact Diagnoses Obstructive sleep apnea syndrome CSA (central sleep apnea) Procedures Polysomnography 4 or more parameters with PAP titration Gregoria Ralph, EXTERMINATION INSPECTOR-BEACH ATTENDANT [address] [facility] [facility], [address] [place] [address] Referral ID Status Reason Start Date Expiration Date V isits Requested Visits Authorized [id number] Pending Review 08/15/2023 08/14/2024 1 1 Specialty Diagnoses / Procedures Referred By Contac t Referred To Contact Diagnoses Obstructive sleep apnea syndrome CSA (central sleep apnea) Procedures Echo complete W/O contrast Gregoria Ralph, EXTERMINATION INSPECTOR-BEACH ATTENDANT [address] [facility], [address] [address] Phone: [phone] Referral ID Status Reason Start Date Expiration Date V isits Requested Visits Authorized [id number] Authorized 08/15/2023 11/12/2023 1 1 Specialty Diagnoses / Procedures Referred By Contac t Referred To Contact Radiology Diagnoses Personal history of tobacco use, presenting hazards to health Procedures CT low dose lung screenin (3mo 6mo follow-up) Gregoria Ralph EXTERMINATION INSPECTOR-BEACH ATTENDANT [address] [address] Phone: [phone] Referral ID Status Reason Start Date Expiration Date V isits Requested Visits Authorized [id number] Authorized 08/16/2023 11/13/2023 1 1 Additional Source Comments (unrecognized sect ion and content) No Status Records FoundNo Status Records FoundNo Status Records FoundNo Status Records FoundNo Status Records FoundNo Status Records FoundNo Status Records FoundNo Status Records Found INFORMATION SOURCE (unrecogn ized section and content) DATE CREATED AUTHOR 08/06/2021 [facility] DATE CREATED AUTHOR AUTHOR'S ORGANIZ ATION 10/24/2022 [facility] DATE CREATED AUTHOR AUTHOR'S ORGANIZ ATION 08/18/2023 [facility] DATE CREATED AUTHOR AUTHOR'S ORGANIZ ATION 08/24/2023 [facility] DATE CREATED AUTHOR AUTHOR'S ORGANIZ ATION 08/31/2023 [facility] DATE CREATED AUTHOR AUTHOR'S ORGANIZ ATION 09/28/2023 [facility] DATE CREATED AUTHOR AUTHOR'S ORGANIZ ATION 10/05/2023 [facility] DATE CREATED AUTHOR AUTHOR'S ORGANIZ ATION 10/06/[address] [facility] Care Team (unrecognized sect ion and [...] July 17, 2023 End: July 17, 2023 Assembler Final Relationship Specialty Start Date End Date Dank Campo MD [address] [place] [address] PCP - General Family Medicine 07/25/23 Assembler Final Relationship Specialty Start Date End Date Dank Campo MD [address] [place] [address] PCP - General Family Medicine 07/25/23 Assembler Final Relationship Specialty Start Date End Date Dank Campo MD [address] [facility] [place] [address] PCP - General Family Medicine 12/10/17 Team Status: Inactive Member Role Status Dates Dank Campo MD Primary Care Provider Active S tart: July 24, 2023 End: July 24, 2023 JOSE MIGUEL ThorpeC Attending Provider Active Start: July 24, 2023 End: July 24, 2023 Team Status: Inactive Member Role Status Dates Dank Campo MD Primary Care Provide r, Attending Provider, Referring Provider Active Start: August 09, 2023 End: August 09, 2023 Assembler Final Relationship Specialty Start Date End Date Dank Campo MD [address] [place] [address] PCP - General Family Medicine 12/10/17 Assembler Final Relationship Specialty Start Date End Date Dank Campo MD [address] [place] [address] PCP - General Family Medicine 12/10/17 REASON FOR VISIT (unrecogniz ed section and content) Reason Comments Diabetes Reason Comments Sleep Apnea DME: [facility] Specialty Diagnoses / Procedures Referred By Contfelipa t Referred To Contact Pulmonary Medicine / Sleep Medicine Diagnoses Obstructive sleep apnea syndrome Jyoti Roth, EXTERMINATION INSPECTOR-[facility] [address] [place] [address] [facility] [facility] [place] [address] Referral ID Status Reason Start Date Expiration Date Visits Requested Visits Authorized [id number] Pending Review Specialty Services Required 08/13/2023 08/12/2024 [...] BE BASED ON THE PRIMARY CLINICAL RECORDS. [employer] provides no warranty or guarantee of the accuracy or completeness of information in this document.
[2023-10-09 10:56] LABS: Anion Gap 14.6; Carbon Dioxide 25.9 mmol/L (21.0-32.0); Chloride 103 mmol/L (98-107); Creatine Kinase 85 U/L (39-308); Myoglobin 88 ng/mL (16-96); Potassium 5.5 mmol/L (3.5-5.1); Sodium 138 mmol/L (136-145)
== END 2023-10-09 09:42 | disposition home or self-care (01) ==
LOC: LAB 09:42
PROVIDERS: PCP Family Medicine; Visit Provider Nurse Practitioner Family
DX: R25.3 Fasciculation (principal); R41.3 Other amnesia
CPT/HCPCS: 36415; 80051; 82550; 82607; 83874

== ENCOUNTER 2023-10-15 07:44 | Day surgery (SDC) | payer MEDICARE, SELFPAY ==
--- OUTSIDE RECORDS SUMMARY | 2023-10-15 07:53 | XMS_ITS | CCD ---
Author Organization [facility] Care Team Providers Care Customer Project Manager Name Role Phone DANK CAMPO Primary Care Physician MD Dank Campo Primary Care Provider MD Kike Bernal Attending Provider Asaad, Imad Unavailable FRENANDO ., MR REBECCA Admitting Unavailable NADERER, DR [...] Unavailable NADERER, DR DANK Leon Consulting Unavailable NADEREGraciela, DR DANK Leon Primary Care Unavailable DELPHIA, DR SORIN Rodarte Consulting Unavailable NADERER, DR DANK Leon Admitting Unavailable NADERER, DR DANK Leon Attending Unavailable NADERER, DR DANK Leon Primary Care Unavailable YENIEREGraciela, DR DANK Leon Consulting Unavailable MD Dank Campo Primary Care Provider MD Kike Bernal Attending Provider MD Dank Campo Attending Provider MD Dank Campo Attending Provider [phone] Jena RAYMUNDO, Dank Primary Care Provider Dank Campo MD Primary Care Provider MD Dank Campo Primary Care Provider KERRI Holden Attending Provider MD Dank Campo Referring Provider GREGORIA RALPH Attending Unavailable NADERER, DANK Referring Unavailable NADERER, DANK Primary Care Unavailable GREGORIA RALPH Referring Unavailable NADERER, DANK Primary Care Unavailable GREGORIA RALPH Referring Unavailable NADERER, DANK Primary Care Unavailable Asaad, Imad Admitting Unavailable Asaad, Imad Attending Unavailable Naderer, Dank Primary Care Unavailable Naderer, Dank Primary Care Unavailable Naderer, Dank Attending Unavailable Naderegraciela, Dank Admitting Unavailable Edd Holden Admitting Unavailable Edd Holden Attending Unavailable Naderer, Dank Primary Care Unavailable Asaad, Imad Admitting Unavailable Asaad, Imad Attending Unavailable Naderer, Dank Primary Care Unavailable Naderer, Dank Primary Care Unavailable Naderer, Dank Attending Unavailable Naderer, Dank Referring Unavailable Naderer, Dank Admitting Unavailable Naderer, Dank Primary Care Unavailable Naderer, Dank Attending Unavailable Naderer, Dank Admitting Unavailable Peterson PETERSEN Attending Unavailable JINAROSALVA MILLER Attending Unavailable JINAROSALVA MILLER Attending Unavailable DEJUAN PETERSEN Attending Unavailable JINAROSALVA E Admitting Unavailable JINA, ROSALVA De Luna Attending Unavailable JINA, ROSALVA E Admitting Unavailable JINAROSALVA Attending Unavailable Peterson PETERSEN Attending Unavailable Jessica RAYMUNDO, Roma Arteaga Attending Unavailable DEXTER KRISHNAMURTHY Attending Unavailable ASHLI ROSS Attending Unavailable ASHLI ROSS Attending Unavailable JR. JOON, JOHANNE Vidales Attending Unavaila ble DEXTER KRISHNAMURTHY Attending Unavailable NADERERDANK Referring Unavailable NADERER, DANK Attending Unavailable DEXTER KRISHNAMURTHY Attending Unavailable LAST, DEXTER Leon Attending Unavailable EDD HOLDEN Attending Unavailable DEXTER KRISHNAMURTHY Attending Unavailable JYOTI ROTH Attending Unavailable DANK CAPMO Attending Unavailable EDD HOLDEN Attending Unavailable EDD HOLDEN Referring Unavailable DANK CAMPO Attending Unavailable Allergies Allergy Classification Reported Allergen(s) Allergy Type Date of Onset Reaction(s) Facility (1 source) No Known Medication Allergies; 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: [No Known Medication Allergies] Propensity to adverse reactions (disorder) [facility] Repository Medications Current Medications Medication Drug Class(es) [...] Ordered Start: 01-30-2019 [facility] celecoxib (CeleBREX) 200 MG capsule Indications: Lumbago with sciatica, right side TAKE 1 CAPSULE BY MOUTH TWICE DAILY 60 capsule 5 07/24/2023 Active Continuous Blood Gluc Sensor (Dexcom G7 Sensor) misc (4 sources) Start: 06-05-2023 End: 06-04-2024 Continuous Blood Gluc Sensor (Dexcom G7 Sensor) misc Indications: Type 2 diabetes mellitus with diabetic polyneuropathy, with long-term current use of insulin ([facility]) Inject 1 Device under the skin See administration instructions Change every 10 days 9 each 3 06/05/2023 06/04/2024 Active Continuous Blood Gluc Sensor (FreeStyle Cornelius 2 Sensor) misc (2 sources) Start: 05-23-2023 End: 07-30-2023 Continuous Blood Gluc Sensor (FreeStyle Cornelius 2 Sensor) [facility] Indications: Type 2 diabetes mellitus with diabetic polyneuropathy, with long-term current use of insulin ([facility]) Use as directed 2 each 11 05/23/2023 [...] 0 12/28/2022 Active fluticasone 0.05 mg/inh Nasal [place] (3 sources) Start: 07-28-2019 fluticasone 0.05 mg/inh Nasal [place] Nasal, Daily, Refill(s) 0 Start Date: 07/28/19 [...] polyneuropathy, with long-term current use of insulin ([facility]) Inject 60 Units under the skin at bedtime 30 mL 3 07/30/2023 Active 3 ml insulin lispro 100 unt/ml pen injector (12 sources) Insulin Analog Start: 06-05-2023 insulin lispro (HumaLOG) 100 UNIT/ML injection Indications: Type 2 diabetes mellitus with diabetic polyneuropathy, with long-term current use of insulin ([facility]) INJECT 8-15 UNITS BREAKFAST, 20 UNITS LUNCH [...] 10 MG tablet Indications: Essential (primary) hypertension ([facility]) TAKE 1 TABLET BY MOUTH TWICE DAILY [...] Start: 12-10-2019 take 1 capsule by mo mah twice daily Loperamide HCl 2 MG 1 [...] polyneuropathy, with long-term current use of insulin ([facility]) Inject 0.5 mg under the skin 1 [...] Drug Class(es) Dates Sig (Normalized) Sig (Original) [id number] 200 actuat albuterol 0.09 mg/actuat metered dose inhaler (2 sources) beta2-Adrenergic Agonist Start: 12-22-2020 End: 08-15-2023 take 2 puff(s) by inhalation every four hours as needed for wheezing albuterol (PROVENTIL HFA;VENTOLIN HFA) 90 mcg/actuation inhaler Indications: Chronic obstructive pulmonary disease, unspecified COPD type ([facility]) Inhale 2 puffs every 4 (four) hours [...] 12-08-2020 End: 03-14-2021 Dibucaine Discontinued 1 APPLIC VA Four times daily 56 December 07, 2020 [...] Fluticasone Propionate (Flonase Allergy Relief) 50 mcg/actuation [place],Suspension Discontinued 1 SPRAY INTRANASAL Daily February 10, 2020 11:00pm July 24, 2022 12:24pm Start: 07-28-2019 fluticasone 0. 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; 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: [OTH ASSISTED CURRENT DRUG THERAPY] Onset: 3 Episodic Other [...] sources) Long-term current use of insulin; 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: [senior care (current) use of insulin] Onset: 12-04-2022 12-04-2022 [...] emptying studyon 08-22-2023 NM gastric emptying study [facility] [place] [address] Nuclear Medicine Report Signed Patient: Milad Seymour MR#: [id number] : 1955 Acct:[id number] Age/Sex: 67 / M ADM Date: 08/22/23 Loc: [place] Room: Type: [facility] Attending Dr: Kike Bernal MD Copies to: MD Shaheen Ralph Jr, DO Ordering Provider: Kike Bernal MD Date of Service: 08/22/23 NM/MO gastric emptying study: R11.10 - Vomiting, unspecified [...] IMAGING. Impression dictated by: Shaheen Grimes Jr., Mulugeta.Yosvany08/22/2023 12:21 PM Dictation Location: [place] [address] Transcribed By: [facility] 08/22/23 1221 Dictated By: Shaheen Grimes Jr, DO 08/22/23 1215 Signed By: 08/22/23 1221 Normal [facility] Glucose Poct Glucometerson 0 08-20-2023 Glucose [Mass/Vol] 182 mg/dL Normal [facility] Comment on above: Result Comment: [facility] Glucose Reference Range is dependent on time and content of last meal. Glucose of more than 200 mg/dL in a nonstressed, ambulatory subject supports the diagnosis of Diabetes Mellitus. PERFORMED BY: [place] [id number] PATHOLOGIST FINISHING TUNNEL OPERATOR JEANNINE VAZQUEZ M.D. Performed By: #### G LULS #### Point of Care testing , Glucose [Mass/Vol] 227 mg/dL Normal [facility] Comment on above: Result Comment: [facility] Glucose Reference Range is dependent on time and content of last meal. Glucose of more than 200 mg/dL in a nonstressed, ambulatory subject supports the diagnosis of Diabetes Mellitus. PERFORMED BY: [address] [id number] PATHOLOGIST FINISHING TUNNEL OPERATOR JEANNINE VAZQUEZ M.D. Performed By: #### G LULS #### Point of Care testing , XR pre/post mri xrayon 08-19 XR pre/post mri xray [facility] Main [address] [address] MRI Report Signed Patient: Milad Seymour MR#: [id number] : 1955 Acct:[id number] Age/Sex: 67 / M ADM Date: 08/20/23 Loc: [place] Room: Type: [facility] Attending Dr: Dank Campo MD Copies to: Dank Campo MD Ordering Provider: Dank Campo MD Date of Service: 08/20/23 MR/MR lumbar spine wo con: [id number] ([id number]) XR/XR pre/post mri xray: PRE LUMBAR MRI [...] Tom Chanel M.D.08/20/2023 1:02 PM Dictation Location: [place] [address] Transcribed By: [facility] 08/20/23 1302 Dictated By: Tom Chanel DO 08/20/23 1250 Signed By: 08/20/23 1302 [facility] HbA1c (Bld) [Mass fraction]o n 07-30-2023 Interpretation and review of laboratory results Abnormal [facility] Hematology and Cell countson 07-30-2023 HbA1c (Bld) [Mass fraction] 8.9 % [facility] CT shoulder LT w conon 07-24 CT shoulder LT w con [facility] Main [place] [address] [place] [address] CT Scan Report Signed Patient: Milad Seymour MR#: [id number] : 1955 Acct:[id number] Age/Sex: 67 / M ADM Date: 07/24/23 Loc: XD Room: Type: [facility] Attending Dr: Edd Holden FOREIGN LANGUAGES DEPARTMENT CHAIR-C Copies to: Edd Holden HOSPITALITY COORDINATOR Ordering Provider: Edd Holden CNP Date of Service: 07/24/23 CT/CT shoulder LT [...] Kamran Chavira M.D.07/24/2023 1:48 PM Dictation Location: [place] [address] Transcribed By: [facility] 07/24/23 1348 Dictated By: Kamran Chavira II, MD 07/24/23 1336 Signed By: 07/24/23 1348 Normal [facility] [place] guided needle placementon 07-24-2023 FL guided needle placement [facility] Main [place] [address] [place] [address] Fluoroscopy Report Signed Patient: Milad Seymour MR#: [id number] : 1955 Acct:[id number] Age/Sex: 67 / M ADM Date: 07/24/23 Loc: XD Room: Type: [facility] Attending Dr: Edd Holden FOREIGN LANGUAGES DEPARTMENT CHAIR-C Copies to: Edd Holden HOSPITALITY COORDINATOR Ordering Provider: Edd Holden CNP Date of [...] Kamran Chavira M.D.07/24/2023 12:39 PM Dictation Location: [place] [address] Transcribed By: WOODY 07/24/23 1239 Dictated By: Kamran Chavira II, MD 07/24/23 1231 Signed By: 07/24/23 1239 [facility] Glucose Glucometer (BldC) [M ass/Vol]Ordered By: Kike Bernal on 04-27-2023 Glucose [Mass/Vol] 189 mg/dL [facility] Comment on above: Random Glucose Refer ence Range is dependent on time and content of last meal. Glucose of more than 200 mg/dL in a nonstressed, ambulatory subject supports the diagnosis of Diabetes Mellitus. Glucose Poct Glucometerson 1 06-27-2022 Commemt1 Glu2: Cleaned Meter Normal [facility] Comment on above: Result Comment: PERF ORMED BY: [facility] [place] [address] PATHOLOGIST FINISHING TUNNEL OPERATOR JEANNINE VAZQUEZ M.D. Performed By: #### G LUCI #### Point of Care testing , Glucose [Mass/Vol] 189 mg/dL Normal [facility] Comment on above: Result Comment: Starr om Glucose Reference Range is dependent on time and content of last meal. Glucose of more than 200 mg/dL in a nonstressed, ambulatory subject supports the diagnosis of Diabetes Mellitus. Performed By: #### G LUCI #### Point of Care testing , William 04-27-2023 L ------ Specimen: [id number] Received: 04/27/23 Status: MASSIEL Holloway Num: [id number] Spec Type: Surgical Subm Dr: Kike Bernal MD Tissues: A Colon Biopsy (RANDOM COLON) Procedures: HE/2, Gross/Micro L4 Age/ Patient Sex Location Account Attending Physician Milad Seymour/Sonia [id number] Kike Bernal MD SPEC NUM: [id number] RECD: 04/27/23 STATUS: MASSIEL HOLLOWAY NUM: [id number] KURT: 04/27/23- [facility] DR: Kike Bernal MD ENTERED: 04/27/23 [facility] DR: VERA TYPE: Surgical DEPT: S ORDERED: [...] microscopic examination confirms the diagnosis. CPT Codes 50500 Specimen: [id number] Received: 04/27/23-1246 Status: MASSIEL Holloway Num: [id number] Spec Type: Surgical Subm Dr: Kike Bernal MD Tissues: A Colon Biopsy (RANDOM COLON) Procedures: HE/2, Gross/Micro L4 Patient: Milad Seymour [id number] (Continued) Signed (signature on file) Kaushal Magana MD 04/30/23 1325 Normal [facility] No Panel InformationOrdered By: Kike Bernal on 04-27-2023 Bedside Glucose Comment Glu2: cleaned meter [facility] Patient Educationon 02-13-20 Patient Education Oncology Prostate [...] under a microscope. This is called the Penfield score and the total score can range [...] to normal prostate cells (moderately differentiated). ? Rosalina 8, 9, or 10: This indicates [...] external be (more content not included)... Normal [facility] 02-12-2023 Reminders - From: Johana Reeves To: NOREEN Petersen; Sent: 02/12/2023 17:56:32 EDT Show up: 01/13/2024 17:56:00 EDT Subject: PSA prior to appt Reminder Message Please Remember to:_have pt get PSA done prior to appt in 1 year. Normal [facility] Urology Office/Clinic Noteon 02-12-2023 Urology Office/Clinic Note [...] [facility] [address], [place] [address] [phone] Additional Instructions: 1 yr w/ PSA Patient [...] TID celecoxib, Oral fluticasone 0.05 mg/inh Nasal [place], Nasal, Daily Insulin Lispro KwikPen 100 units/mL [...] used for this result was chemiluminescence using [employer]s Access Hybritech PSA reagent. PSA Total 0.5 ng/mL 11/28/2022 11:31 EDT The concentration of P (more content not included)... Normal [facility] Comment on above: Result Comment: Elec tronically Signed By: Petreson PETERSEN MD\.br\Date and Time Signed: 02/12/23 10:15 EDT\.br\Electronically Co-Signed By: Johana Reeves\.br\Date and Time Co-Signed: 02/12/23 10:14 EDT Ambulatory Visit Summaryon 0 02-06-2023 Ambulatory Visit Summary LION MILAD Mulugeta :1955 Visit Date:02/06/2023 Ambulatory Visit Instructions Your Diagnosis Prostate cancer Your Care Team Attending Physician - DEJUAN PETERSEN MD Primary Care Physician - DANK CAMPO MD This Is Your Medications List aspirin (aspirin 81 mg Oral EC Tab) baclofen celecoxib fluticasone nasal (fluticasone 0.05 mg/inh Nasal [place]) lansoprazole lisinopril metformin metoprolol (metoprolol 25 mg ER Tab) simvastatin Procedures Performed Laparoscopic cholecystectomy (03/2021), Radiation (01/16/2020), Transrectal biopsy of prostate using ultrasound (US) guidance (09/23/2019), Transrectal biopsy of prostate using ultrasound (US) guidance (09/03/2018), Appendectomy, Colonoscopy, Tonsillectomy. What to do next Scheduled Follow-Up Appointments Sunday 9:15 AM EDT With: NICOLA RAYMUNDO, Peterson Owens Where: [facility] CHEMISTRYOrdered By: SYSTEM SYSTEM on 02-06-2023 Prostate specific Ag [Mass/Vol] 0.4 ng/mL Normal 0.1 - 3.5 ng/mL [facility] Remisol PSA Totalon 02-06-2023 Prostate specific Ag [Mass/Vol] 0.4 ng/mL Normal 0.1-3.5 [facility] Comment on above: Result Comment: The concentration of PSA determined by different manufacturers can vary due to differences in assay methods and reagent specificity. Values obtained from different assay methods cannot be used interchangeably. The methodology used for this result was chemiluminescence using [employer]s Access Hybritech PSA reagent. Performed By: #### 1 [id number] #### [facility] [address] [place] [address] PSA Totalon 11-28-2022 Prostate specific Ag [Mass/Vol] 0.5 ng/mL Normal 0.1-3.5 [facility] Comment on above: Result Comment: The concentration of PSA determined by different manufacturers can vary due to differences in assay methods and reagent specificity. Values obtained from different assay methods cannot be used interchangeably. The methodology used for this result was chemiluminescence using [employer]s Access Hybritech PSA reagent. Performed By: #### 1 [id number] #### [facility] [address] [place] [address] PANCREATIC ELASTASE FECALon 09-24-2022 Pancreatic Elastase, Fecal 467 ug Elast./g Normal >200 [facility] Comment on above: Result Comment: Nicolle re Pancreatic Insufficiency: <100 Moderate Pancreatic Insufficiency: 100 - 200 Normal: >200 Performed By: #### C PEPT #### [facility] [address] [place] [address] Dr. Stewart De La Cruz POTASSIUM, FECALon 3 Potassium, Stool 57 mmol/L Normal [facility] Comment on above: Result Comment: INTE RPRETIVE INFORMATION: Fecal Potassium A reference interval has not been established for fecal specimens. This test was developed and its performance characteristics determined by [employer]. It has not been cleared or approved by the [place] Food and Drug Administration. This test was performed in a CLIA certified laboratory and is intended for clinical purposes. Performed By: #### C PEPT #### [facility] [address] [place] [address] Dr. Stewart De La Cruz SODIUM, FECALon 09-17-2022 Sodium, Stool 65 mmol/L Normal [facility] Comment on above: Result Comment: INTE RPRETIVE INFORMATION: Fecal Sodium A reference interval has not been established for fecal specimens. This test was developed and its performance characteristics determined by [employer]. It has not been cleared or approved by the [place] Food and Drug Administration. This test was performed in a CLIA certified laboratory and is intended for clinical purposes. Performed By: #### F ECALN #### [facility] [address] [place] [address] Dr. Stewart De La Cruz CALPROTECTIN, FECALon 2022 Calprotectin, Fecal 43 ug/g Normal 0-120 [facility] Comment on above: Result Comment: Conc entration Interpretation Follow-Up <16 - 50 ug/g Normal None >50 -120 ug/g Borderline Re-evaluate in 4-6 weeks >120 ug/g Abnormal Repeat as clinically indicated Performed By: #### C PEPT #### [facility] [address] [place] [address] Dr. Stewart De La Cruz C-PEPTIDE, SERUMon 3 C-Peptide, Serum 6.5 ng/mL Critically high 1.1-4.4 [facility] Comment on above: Result Comment: C-Pe ptide reference interval is for fasting patients. Performed By: #### C PEPT #### [facility] [address] [place] [address] Dr. Stewart De La Cruz HIV 1 AND 2 WITH REFLEXon HIV Screen 4th Generation wRfx Non-Reactive Normal Non Reactive [facility] Comment on above: Result Comment: HIV Negative HIV-1/HIV-2 antibodies and HIV-1 p24 antigen were NOT detected. There is no laboratory evidence of HIV infection. Performed By: #### C PEPT #### [facility] [address] [place] [address] Dr. Stewart De La Cruz INSULINon 09-13-2022 Insulin 13.9 uIU/mL Normal 2.6-24.9 [facility] Comment on above: Performed By: #### C PEPT #### [facility] [address] [place] [address] Dr. Stewart De La Cruz POTASSIUM, FECALon Potassium, Stool QNSMT Normal [facility] Comment on above: Result Comment: Test not performed. One specimen was submitted with requests for multiple tests. The requested testing requires a separate specimen for each test requested. contacted Keesha at your facility on 09-13-2022 Performed By: #### C PEPT #### [facility] [address] [place] [address] Dr. Stewart De La Cruz SODIUM, FECALon 09-13-2022 Sodium, Stool QNSMT Normal [facility] Comment on above: Result Comment: Test not performed. One specimen was submitted with requests for multiple tests. The requested testing requires a separate specimen for each test requested. contacted Keesha at your facility on 09-13-2022 Performed By: #### F ECALN #### [facility] [address] [place] [address] Dr. Stewart De La Cruz CBC AUTO DIFFon 09-12-2022 BASO # 0.1 103/ul Normal 0.0-0.1 [facility] Comment on above: Performed By: #### C PEPT #### [facility] [address] [place] [address] Dr. Stewart De La Cruz Basophils/100 WBC (Bld) 1.2 % Normal 0.2-2.0 [facility] Comment on above: Performed By: #### C PEPT #### [facility] [address] [place] [address] Dr. Stewart De La Cruz EO # 0.3 103/ul Normal 0.0-0.7 [facility] Comment on above: Performed By: #### C PEPT #### [facility] [address] [place] [address] Dr. Stewart De La Cruz Eosinophils/100 WBC (Bld) 4.5 % Normal 0.9-7.0 [facility] Comment on above: Performed By: #### C PEPT #### [facility] [address] [place] [address] Dr. Stewart De La Cruz Erythrocyte distribution width (RBC) [Ratio] 12.9 % Normal 11.0-15.0 [facility] Comment on above: Performed By: #### C PEPT #### [facility] [address] [place] [address] Dr. Stewart De La Cruz Hematocrit (Bld) [Volume fraction] 44.6 % Normal 42.0-54.0 [facility] Comment on above: Performed By: #### C PEPT #### [facility] [address] [place] [address] Dr. Stewart De La Cruz Hemoglobin (Bld) [Mass/Vol] 14.9 g/dL Normal 14.0-18.0 [facility] Comment on above: Performed By: #### C PEPT #### [facility] [address] [place] [address] Dr. Stewart De La Cruz IG # 0.03 10e3/ul Normal 0.00-0.03 [facility] Comment on above: Performed By: #### C PEPT #### [facility] [address] [place] [address] Dr. Stewart De La Cruz IG % 0.5 % Normal 0.0-0.5 [facility] Comment on above: Performed By: #### C PEPT #### [facility] [address] [place] [address] Dr. Stewart De La Cruz LYMPH # 1.1 103/ul Critically low 1.2-3.8 [facility] Comment on above: Performed By: #### C PEPT #### [facility] [address] [place] [address] Dr. Stewart De La Cruz Lymphocytes/100 WBC (Bld) 18.5 % Critically low 20.5-60.0 [facility] Comment on above: Performed By: #### C PEPT #### [facility] [address] [place] [address] Dr. Stewart De La Cruz MANUAL DIFF REQ NO Normal [facility] Comment on above: Performed By: #### C PEPT #### [facility] [address] [place] [address] Dr. Stewart De La Cruz MCH (RBC) [Entitic mass] 29.2 pg Normal 25.9-34.0 [facility] Comment on above: Performed By: #### C PEPT #### [facility] [address] [place] [address] Dr. Stewart De La Cruz MCHC (RBC) [Mass/Vol] 33.4 g/dL Normal 29.9-35.2 [facility] Comment on above: Performed By: #### C PEPT #### [facility] [address] [place] [address] Dr. Stewart De La Cruz MCV (RBC) [Entitic vol] 87.5 fL Normal 80.0-94.0 [facility] Comment on above: Performed By: #### C PEPT #### [facility] [address] [place] [address] Dr. Stewart De La Cruz MONO # 0.4 103/ul Normal 0.3-0.8 [facility] Comment on above: Performed By: #### C PEPT #### [facility] [address] [place] [address] Dr. Stewart De La Cruz Monocytes/100 WBC (Bld) 6.8 % Normal 1.7-12.0 [facility] Comment on above: Performed By: #### C PEPT #### [facility] [address] [place] [address] Dr. Stewart De La Cruz NEUT # 4.2 103/ul Normal 1.4-6.5 [facility] Comment on above: Performed By: #### C PEPT #### [facility] [address] [place] [address] Dr. Stewart De La Cruz Neutrophils/100 WBC (Bld) 68.5 % Normal 43.0-75.0 [facility] Comment on above: Performed By: #### C PEPT #### [facility] [address] [address] [address] Stewart De La Cruz Platelet mean volume (Bld) [Entitic vol] 9.8 fL Normal 9.5-13.5 [facility] Comment on above: Performed By: #### C PEPT #### [facility] [address] [place] [address] Dr. Stewart De La Cruz PLT 133 103/ul Critically low 150-450 [facility] Comment on above: Performed By: #### C PEPT #### [facility] [address] [place] [address] Dr. Stewart De La Cruz RBC 5.10 106/ul Normal 4.70-6.10 [facility] Comment on above: Performed By: #### C PEPT #### [facility] [address] [place] [address] Dr. Stewart De La Cruz WBC 6.1 103/ul Normal 4.0-11.0 [facility] Comment on above: Performed By: #### C PEPT #### [facility] [address] [place] [address] Dr. Stewart De La Cruz CRPon 09-12-2022 CRP [Mass/Vol] mg/L Normal <=1.0 [facility] Comment on above: Performed By: #### C RP #### [facility] [address] [place] [address] Dr. Stewart De La Cruz GLYCOHEMOGLOBIN A1Con 2022 ADA RECOMMENDATION SEE BELOW Normal [facility] Comment on above: Result Comment: ADA RECOMMENDED LIMIT 4.0 - 6.0 ADA THERAPEUTIC TARGET < 7.0 ACTION SUGGESTED > 7.0 Performed By: #### A 1C #### [facility] [address] [place] [address] Dr. Stewart De La Cruz Glucose [Mass/Vol] 278 mg/dL Normal [facility] Comment on above: Performed By: #### A 1C #### [facility] [address] [place] [address] Dr. Stewart De La Cruz HbA1c (Bld) [Mass fraction] 11.3 % Critically high 4.5-6.2 [facility] Comment on above: Performed By: #### A 1C #### [facility] [address] [place] [address] Dr. Stewart De La Cruz PROF CHEM 8 (BAS METB)on Anion gap [Moles/Vol] 16.9 mmol/L Normal [facility] Comment on above: Performed By: #### C PEPT #### [facility] [address] [place] [address] Dr. Stewart De La Cruz Calcium [Mass/Vol] 9.3 mg/dL Normal 8.5-10.1 [facility] Comment on above: Performed By: #### C PEPT #### [facility] [address] [place] [address] Dr. Stewart De La Cruz Chloride [Moles/Vol] 103 mmol/L Normal 98-107 [facility] Comment on above: Performed By: #### C PEPT #### [facility] [address] [place] [address] Dr. Stewart De La Cruz CO2 [Moles/Vol] 26.0 mmol/L Normal 21.0-32.0 [facility] Comment on above: Performed By: #### C PEPT #### [facility] [address] [place] [address] Dr. Stewart De La Cruz Creatinine [Mass/Vol] 1.43 mg/dL Critically high 0.70-1.30 [facility] Comment on above: Performed By: #### C PEPT #### [facility] [address] [place] [address] Dr. Stewart De La Cruz EGFR-AF [place] 60 mL/min/1.73m2 Normal >=60 [facility] Comment on above: Performed By: #### C PEPT #### [facility] [address] [place] [address] Dr. Stewart De La Cruz EGFR-NON AF [place] 49 mL/min/1.73m2 Critically low >=60 [facility] Comment on above: Performed By: #### C PEPT #### [facility] [address] [place] [address] Dr. Stewart De La Cruz Glucose [Mass/Vol] 293 mg/dL Critically high 74-106 [facility] Comment on above: Performed By: #### C PEPT #### [facility] [address] [address] [address] Stewart De La Cruz Potassium [Moles/Vol] 4.9 mmol/L Normal 3.5-5.1 [facility] Comment on above: Performed By: #### C PEPT #### [facility] [address] [address] [address] Stewart De La Cruz Sodium [Moles/Vol] 141 mmol/L Normal 136-145 [facility] Comment on above: Performed By: #### C PEPT #### [facility] [address] [address] [address] Stewart De La Cruz Urea nitrogen [Mass/Vol] 32.0 mg/dL Critically high 7.0-18.0 [facility] Comment on above: Performed By: #### C PEPT #### [facility] [address] [address] [address] Stewart De La Cruz Urea nitrogen/Creatinine [Mass ratio] 22.4 mg/mg Normal [facility] Comment on above: Performed By: #### C PEPT #### [facility] [id number] Stewart De La Cruz SED RATE [facility] 2022 SED RATE 17 mm/hr Normal <=20 [facility] Comment on above: Performed By: #### S EDR #### [facility] [address] [address] [address] Stewart De La Cruz RAD EGD - documentation only do not orderon 07-25-2022 RAD EGD - documentation only do not order [employer] Other Glucose Glucometer ([facility]) [M ass/Vol]Ordered By: Kike Bernal on 07-24-2022 Glucose [Mass/Vol] 275 mg/dL [facility] Comment on above: Random Glucose Refer ence Range is dependent on time and content of last meal. Glucose of more than 200 mg/dL in a nonstressed, ambulatory subject supports the diagnosis of Diabetes Mellitus. GLYCOHEMOGLOBIN A1Con 2021 ADA RECOMMENDATION SEE BELOW Normal [facility] Comment on above: Result Comment: ADA RECOMMENDED LIMIT 4.0 - 6.0 ADA THERAPEUTIC TARGET < 7.0 ACTION SUGGESTED > 7.0 Performed By: #### A 1C #### [facility] [address] [address] [address] Stewart De La Cruz Glucose [Mass/Vol] 235 mg/dL Normal [facility] Comment on above: Performed By: #### A 1C #### [facility] [address] [address] [address] Stewart De La Cruz HbA1c (Bld) [Mass fraction] 9.8 % Critically high 4.5-6.2 [facility] Comment on above: Performed By: #### A 1C #### [facility] [address] [address] [address] Stewart De La Cruz GLYCOHEMOGLOBIN A1Con 2021 ADA RECOMMENDATION SEE BELOW Normal [facility] Comment on above: Result Comment: ADA RECOMMENDED LIMIT 4.0 - 6.0 ADA THERAPEUTIC TARGET < 7.0 ACTION SUGGESTED > 7.0 Performed By: #### A 1C #### [facility] [address] [address] [address] Stewart De La Cruz Glucose [Mass/Vol] 197 mg/dL Normal [facility] Comment on above: Performed By: #### A 1C #### [facility] [address] [address] [address] Stewart De La Cruz HbA1c (Bld) [Mass fraction] 8.5 % Critically high 4.5-6.2 [facility] Comment on above: Performed By: #### A 1C #### [facility] [address] [address] [address] Stewart De La Cruz PSA, FREE AND TOTAL RATIOon 01-28-2022 % Free PSA 30.0 % Normal [facility] Comment on above: Result Comment: The table [...] men. Performed By: #### P SAFREE #### [facility] [address] [address] [address] Stewart De La Cruz Prostate specific Ag [Mass/Vol] 0.1 ng/mL Normal 0.0-4.0 [facility] Comment on above: Result Comment: Nina de luna ECLIA methodology. . According to the [employer], Serum PSA should decrease and [...] disease. Performed By: #### P SAFREE #### [facility] [address] [address] [address] Stewart De La Cruz PSA, Free 0.03 ng/mL Normal N/A [facility] Comment on above: Result Comment: Nina de luna ECLIA methodology. Performed By: #### P SAFREE #### [facility] [address] [address] [address] Stewart De La Cruz GLYCOHEMOGLOBIN A1Con 2021 ADA RECOMMENDATION SEE BELOW Normal [facility] Comment on above: Result Comment: ADA RECOMMENDED LIMIT 4.0 - 6.0 ADA THERAPEUTIC TARGET < 7.0 ACTION SUGGESTED > 7.0 Performed By: #### A 1C #### [facility] [address] [place] [address] Dr. Stewart De La Cruz Glucose [Mass/Vol] 192 mg/dL Normal [facility] Comment on above: Performed By: #### A 1C #### [facility] [address] [address] [address] Stewart De La Cruz HbA1c (Bld) [Mass fraction] 8.3 % Critically high 4.5-6.2 [facility] Comment on above: Performed By: #### A 1C #### [facility] [address] [place] [address] Dr. Stewart Cruz 02-01-2021 CNOV Office Visit (RADTSA ) -- MILAD SEYMOUR ([id number]) 1955 M Date Time Provider Department 02/01/21 [...] DIAGNOSIS: Prostate adenocarcinoma, initial PSA 14.65, biopsy Penfield score 3 + 3 = 6 (grade [...] ASSESSMENT/PLAN:DIAGNOSIS: Prostate adenocarcinoma, initial PSA 14.65, biopsy Penfield score 3 + 3 = 6 (grade [...] cc: Dank Campo MD (DrC) [address] [place] [address] Dr. Petersen Portions of the above note extracted and edited from previous visit as well as active information included in the EMR. Referring Provider: Fawad DIAZ [[id number]] Allergies As of Date: 02/01/2021 (No Known Allergies) Date Reviewed: 02/01/2021 Reviewed by: Tila Herrera LPN - Fully Assessed Reason for Visit: Prostate Cancer [590] Primary Visit Diagnosis:Malignant neoplasm of prostate (HCC) [C61] Order(s):PSA/PROSTSPECAG DIAG [SQPSA] Order #: [id number] FUTURE Prescriptions as of 02/03/2021 - aspirin, [...] magnesium) t (more content not included)... Normal [facility] PSA, Diagnosticon 01-25-2021 PSA, Diagnostic 0.29 ng/mL Normal 0.00-2.59 [facility] Comment on above: Result Comment: Tota l PSA test methodology used is the Electrochemiluminescence Immunoassay. Performed By: #### P SA #### [facility] [address] [place], [place] [address] OBSOLETEon 12-22-2020 OBSOLETE Refill (RADTSA) -- LIONMILAD Mulugeta ([id number]) 1955 M Date Time Provider Department 12/22/20 [...] Encounter Status:Closed by TILA HERRERA on 01/04/21 [facility] CNOVon 11-03-2020 CNOV Office Visit (RADTSA ) -- MILAD SEYMOUR ([id number]) 1955 M Date Time Provider Department 11/03/20 4:00 PM LAB/PORT RADT [facility] During your visit today, we recorded the following information about you: Referring Provider: Fawad DIAZ [[id number]] Allergies As of Date: 11/03/2020 (No Known [...] Status:Closed by TILA HERRERA on 11/03/20 Normal [facility] Office Visit (NILDAA ) -- MILAD SEYMOUR ([id number]) 1955 M Date Time Provider Department 11/03/20 [...] ASSESSMENT/PLAN:DIAGNOSIS: Prostate adenocarcinoma, initial PSA 14.65, biopsy Penfield score 3 + 3 = 6 (grade [...] Fawad Diaz MD cc: Dank Campo MD ([facility]) [address] [place] [address] Dr. Petersen Referring Provider: Fawad DIAZ [[id number]] Allergies As of Date: 11/03/2020 (No Known Allergies) Date Reviewed: 11/03/2020 Reviewed by: Fawad Diaz MD - Fully Assessed Reason for Visit: Prostate Cancer [590] Primary Visit Diagnosis:Malignant neoplasm of prostate (HCC) [C61] Order(s):PSA/PROSTSPECAG DIAG [SQPSA] Order #: [id number] FUTURE Prescriptions as of 11/03/2020 Sig: TAMSULOSIN [...] 30 mg (more content not included)... Normal [facility] PSA, Diagnosticon 11-01-2020 PSA, Diagnostic 0.27 ng/mL Normal 0.00-2.59 [facility] Comment on above: Result Comment: Sandra manzo PSA test methodology used is the Electrochemiluminescence Immunoassay. Performed By: #### P SA #### [facility] [address] [address] [facility] 10-29-2020 CLAUDY Telephone (KauliA) -- MILAD SEYMOUR ([id number]) 1955 M Date Time Provider Department 10/29/20 [...] since completing radiation therapy. Call transferred to [facility] to move up appointment. Dr. Diaz, 07/27/20 [...] (HCC) [C61] Order(s):PSA/PROSTSPECAG DIAG [SQPSA] Order #: [id number] FUTURE Prescriptions as of 10/29/2020 Sig: TAMSULOSIN [...] Encounter Status:Closed by TILA HERRERA on 10/29/20 [facility] Giuseppe 10-08-2020 [facility] (HEMASA) -- MILAD SEYMOUR ([id number]) 1955 M Date Time Provider Department 10/08/20 HEATHER BARRIGA During your visit today, we recorded the following information about you: Allergies As of Date: 10/08/2020 (No Known Allergies) Date Reviewed: 07/14/2020 Reviewed by: Joann Richardson - Fully Assessed Reason for Visit: Lab Orders [1688] Primary Visit Diagnosis:Iron deficiency anemia due to chronic blood loss [D50.0] Order(s):CBC + DIFF (FOR REMOTE [facility] USE) [SQRCBCDF] Order #: [id number] FUTURE COMP METABOLIC PANEL [SQCMP] Order #: [id number] FUTURE Prescriptions as of 10/08/2020 Sig: TAMSULOSIN [...] Encounter Status:Closed by TASHA GOOD on 10/14/20 [facility] OBSOLETEon 09-20-2020 OBSOLETE Refill (RADTSA) -- MILAD SEYMOUR ([id number]) 1955 M Date Time Provider Department 09/20/20 [...] Status:Closed by TILA HERRERA on 10/14/20 Normal [facility] Vital Signs Date Time Vital Sign Value Performing Clinician Facility 08-15-2023 13:35-0500 Diastolic blood pressure 60 mm[Hg] Gregoria Kregel SEPARATOR OPERATOR [employer] COORDINATOR Work Phone: [facility] [employer] [facility] 08-15-2023 13:35-0500 Systolic blood pressure 107 mm[Hg] Gregoria Ralph SEPARATOR OPERATOR [employer]ITAL[employer] COORDINATOR Work Phone: [facility] [employer] [facility] 08-15-2023 13:33-0500 Body height 175.3 cm Gregoria Rlaph SEPARATOR OPERATOR [employer]ITAL[employer] COORDINATOR Work Phone: [facility] 08-15-2023 13:33-0500 Body mass index (BMI) [Ratio] 36.77 kg/m2 Gregoriamyah Ralph SEPARATOR OPERATOR [employer] COORDINATOR Work Phone: [facility] [employer] [facility] 08-15-2023 13:33-0500 Body weight 112.95 kg Gregoria Ralph SEPARATOR OPERATOR [employer] COORDINATOR Work Phone: [facility] 08-15-2023 13:33-0500 Heart rate 81 /min Gregoriamyah Ralph SEPARATOR OPERATOR [employer] COORDINATOR Work Phone: [facility] 08-15-2023 13:33-0500 SaO2% (BldA) [Mass fraction] 95 % Gregoriamyah Ralph SEPARATOR OPERATOR [employer]ITAL[employer] COORDINATOR Work Phone: [facility] [employer] [facility] 07-30-2023 11:16-0500 Body height 177.8 cm Ashli Petznick DO Work Phone: [facility] [employer] 07-30-2023 11:16-0500 Body mass index (BMI) [Ratio] 36.16 kg/m2 Ashli Petznick DO Work Phone: [facility] [employer] 07-30-2023 11:16-0500 Body temperature 98.01 [degF] Ashli Petznick DO Work Phone: [facility] [employer] 07-30-2023 11:16-0500 Body weight 114.31 kg Ashli Petznick DO Work Phone: [facility] [employer] 07-30-2023 11:16-0500 Diastolic blood pressure 62 mm[Hg] Ashli Petznick DO Work Phone: [facility] 07-30-2023 11:16-0500 Heart rate 66 /min Ashli Petznick DO Work Phone: [facility] 07-30-2023 11:16-0500 SaO2% (BldA) [Mass fraction] 97 % Ashli Petznick DO Work Phone: [facility] 07-30-2023 11:16-0500 Systolic blood pressure 116 mm[Hg] Ashli Petznick DO Work Phone: [facility] 07-17-2023 09:22-0500 Diastolic blood pressure 73 mm[Hg] MD Dank Campo Work Phone: [facility] 07-17-2023 09:22-0500 Heart rate 70 /min MD Dank Campo Work Phone: [facility] 07-17-2023 09:22-0500 Respiratory rate 18 /min MD Dank Campo Work Phone: [facility] 07-17-2023 09:22-0500 SaO2% (BldA) [Mass fraction] 97 % MD Dank Campo Work Phone: [facility] 07-17-2023 09:22-0500 Systolic blood pressure 173 mm[Hg] MD Dank Campo Work Phone: [facility] 07-17-2023 09:20-0500 Body height 177.8 cm MD Dank Campo Work Phone: [facility] 07-17-2023 09:20-0500 Body weight 111.13 kg MD Dank Campo Work Phone: [facility] 04-27-2023 12:40-0500 Diastolic blood pressure 68 mm[Hg] MD Dank Campo Work Phone: [facility] 04-27-2023 12:40-0500 Heart rate 75 /min MD Dank Campo Work Phone: [facility] 11-10-2023 12:40-0500 Respiratory rate 16 /min MD aDnk Campo Work Phone: [facility] 04-27-2023 12:40-0500 SaO2% (BldA) [Mass fraction] 97 % MD Dank Campo Work Phone: [facility] 04-27-2023 12:40-0500 Systolic blood pressure 110 mm[Hg] MD Dank Campo Work Phone: [facility] 04-27-2023 10:29-0500 Body height 177.8 cm MD Dank Campo Work Phone: [facility] 04-27-2023 10:29-0500 Body weight 113.39 kg MD Dank Campo Work Phone: [facility] 04-10-2023 14:00-0400 Body height 177.8 cm Imad Asaad Other [employer] Other 04-10-2023 14:00-0400 Body mass index (BMI) [Ratio] 36.3 kg/m2 Imad Asaad Other [employer] Other 04-10-2023 14:00-0400 Body weight 114.76 kg Imad Asaad Other [employer] Other 04-10-2023 14:00-0400 Diastolic blood pressure 68 mm[Hg] Imad Asaad Other [employer] Other 04-10-2023 14:00-0400 Systolic blood pressure 113 mm[Hg] Imad Asaad Other [employer] Other 02-12-2023 09:46-0400 Blood Pressure Location Peterson NICOLA [facility] 02-12-2023 09:46-0400 Diastolic blood pressure 90 mm[Hg] Peterson PETERSEN [facility] 02-12-2023 09:46-0400 Heart rate 68 /min Peterson PETERSEN [facility] 02-12-2023 09:46-0400 Respiratory rate 16 /min Peterson PETERSEN [facility] 02-12-2023 09:46-0400 Systolic blood pressure 138 mm[Hg] Peterson PETERSEN [facility] 07-24-2022 13:52-0500 Diastolic blood pressure 78 mm[Hg] MD Dank Campo Work Phone: [facility] 07-24-2022 13:52-0500 Heart rate 71 /min MD Dank Campo Work Phone: [facility] 07-24-2022 13:52-0500 Respiratory rate 16 /min MD Dank Campo Work Phone: [facility] 07-24-2022 13:52-0500 SaO2% (BldA) [Mass fraction] 96 % MD Dank Campo Work Phone: [facility] 07-24-2022 13:52-0500 Systolic blood pressure 136 mm[Hg] MD Dank Campo Work Phone: [facility] 07-24-2022 12:29-0500 Body height 177.8 cm MD Dank Campo Work Phone: [facility] 07-24-2022 12:29-0500 Body temperature 98 [degF] MD Dank Campo Work Phone: [facility] 07-24-2022 12:29-0500 Body weight 115.66 kg MD Dank Campo Work Phone: [facility] 07-20-2022 10:00-0500 Body height 177.8 cm Imad Asaad Other [employer] Other 07-20-2022 10:00-0500 Body mass index (BMI) [Ratio] 36.73 kg/m2 Imad Asaad Other [employer] Other 07-20-2022 10:00-0500 Body weight 116.12 kg Imad Asaad Other [employer] Other 07-20-2022 10:00-0500 Diastolic blood pressure 96 mm[Hg] Imad Asaad Other [employer] Other 07-20-2022 10:00-0500 Systolic blood pressure 170 mm[Hg] Imad Asaad Other [facility] [employer] Other 02-03-2022 08:29-0400 Blood Pressure Location Peterson PETERSEN [facility] 02-03-2022 08:29-0400 Diastolic blood pressure 88 mm[Hg] Peterson PETERSEN [facility] 02-03-2022 08:29-0400 Heart rate 75 /min Peterson PETERSEN [facility] 02-03-2022 08:29-0400 Respiratory rate 16 /min Peterson PETERSEN [facility] 02-03-2022 08:29-0400 Systolic blood pressure 138 mm[Hg] Peterson PETERSEN [facility] Barb Encounters Encounter Date Encounter Type Care Provider Facility Start: 02-04-2024 ambulatory Peterson Sylvesteri ty:[facility] Start: 10-11-2023 End: 10-11-2023 ambulatory DANK JAIMEERER Not Available Start: 10-09-2023 End: 10-09-2023 ambulatory JYOTI FÉLIX Not Available Start: 10-01-2023 End: 10-02-2023 ambulatory Roma Lopez MD Facility:[facility] Start: 09-27-2023 End: 09-27-2023 ambulatory DEXTER KRISHNAMURTHY Not Available Start: 09-05-2023 End: 09-05-2023 ambulatory DEXTER KRISHNAMURTHY Not Available Start: 08-29-2023 End: 08-29-2023 ambulatory DANK CAMPO Not Available Start: 08-27-2023 Telephone encounter Aliza whaley [facility] Start: 08-23-2023 End: 08-24-2023 ambulatory GREGORIA RALPH [facility] Lois kenny Start: 08-22-2023 End: 08-22-2023 ambulatory Imad Asaad Facility:[facility] Start: 08-20-2023 End: 08-20-2023 ambulatory Dank Naderer Facility:[facility] Start: 08-17-2023 Telephone encounter Gregoria shields SEPARATOR OPERATOR [employer] COORDINATOR Work Phone: [facility] - Sleep Disorders Comment on above: Sleep Lab (CPAP) Start: 08-15-2023 End: 08-15-2023 ambulatory [facility] Start: 08-15-2023 End: 08-15-2023 Office outpatient visit 25 minutes Gregoria Ralph SEPARATOR OPERATOR [employer] COORDINATOR Work Phone: [facility] Comment on above: Personal history of tobacco use, presenting hazards to health (Primary Dx); Obstructive sleep apnea syndrome; CSA (central sleep apnea) Start: 08-09-2023 End: 08-09-2023 ambulatory Dank Campo Facility:[facility] Start: 08-09-2023 End: 08-09-2023 ambulatory MD Dank Campo Work Phone: [facility] Work Phone: Start: 08-09-2023 End: 08-09-2023 Patient encounter procedure MD Dank Campo Work Phone: [facility] [employer] [facility] Work Phone: Start: 08-02-2023 Telephone encounter Aliza [facility] Start: 08-01-2023 Chart abstracting Jr. Johanne Hdez DO Work Phone: [facility] Start: 08-01-2023 End: 08-01-2023 ambulatory JOHANNE MURILLO Not Available Start: 07-30-2023 End: 07-30-2023 ambulatory ASHLI ROSS Not Available Start: 07-30-2023 End: 07-30-2023 Office outpatient visit 25 minutes Ashli Ross DO Work Phone: [facility] Comment on above: Class 2 severe obesi ty due to excess calories with serious comorbidity and body mass index (BMI) of 36.0 to 36.9 in adult ([facility]) (Primary Dx); Type 2 diabetes mellitus with diabetic polyneuropathy, with long-term current use of insulin ([facility]) Start: 07-24-2023 End: 07-24-2023 ambulatory Edd Holden Facility:[facility] Start: 07-24-2023 End: 07-24-2023 Patient encounter procedure MD Dank Campo Work Phone: [facility] [place] Work Phone: Start: 07-17-2023 End: 07-17-2023 ambulatory Dank Campo Facility:[facility] Start: 07-17-2023 End: 07-17-2023 ambulatory MD Dank Campo Work Phone: [facility] Work Phone: Start: 07-17-2023 End: 07-17-2023 Patient encounter procedure MD Dank Campo Work Phone: [facility] [address] [place] Work Phone: Start: 06-26-2023 End: 06-26-2023 ambulatory MD Dank Campo Work Phone: [facility] Work Phone: Start: 06-26-2023 End: 06-26-2023 Patient encounter procedure MD Dank Campo Work Phone: [facility] [address] Work Phone: Start: 06-07-2023 [...] Start: 04-27-2023 End: 04-27-2023 ambulatory Imad Asaad Facility:[facility] Start: 04-27-2023 End: 04-27-2023 Admission to same day surgery center MD Dank Campo Work Phone: [facility] Work Phone: Start: 04-27-2023 End: 04-27-2023 ambulatory MD Dank Campo Work Phone: [facility] Work Phone: Start: 04-10-2023 End: 04-10-2023 ambulatory Imad Asaad Other [employer] Other Start: 04-10-2023 Office outpatient ne w 45 minutes Imad Asaad [facility] Start: 03-20-2023 End: 03-20-2023 ambulatory Imad Asaad Other [employer] Other Start: 03-20-2023 Telephone encounter Imad Asaad [facility] Start: 02-12-2023 End: 02-13-2023 ambulatory Peterson PETERSEN Facility:[facility] Start: 02-12-2023 End: 02-12-2023 Patient encounter procedure Peterson PETERSEN [facility] Start: 02-06-2023 End: 02-07-2023 ambulatory ROSALVA MURO Facility:[facility] Start: 02-06-2023 End: 02-06-2023 Lab Drop off ROSALVA MURO [facility] Start: 02-06-2023 End: 02-06-2023 Patient encounter procedure DEJUANHERNAN PETERSEN [facility] Start: 12-26-2022 End: 12-27-2022 ambulatory ROSALVA MURO Facility:[facility] Start: 11-28-2022 End: 11-29-2022 ambulatory ROSALVA MURO Facility:[facility] Start: 10-17-2022 End: 10-18-[address] DANK CAMPO Facility:[facility] Start: 09-20-2022 End: 09-20-2022 ambulatory Imad Asaad Other [employer] Other Start: 09-20-2022 Telephone encounter Imad Asaad [facility] Start: 09-14-2022 End: 09-14-[address] DANK CAMPO Facility:[facility] Start: 09-12-2022 End: 09-13-[address] DANK CAMPO Facility:[facility] Start: 07-24-2022 Telephone encounter Imad Asaad [facility] Start: 07-24-2022 End: 07-24-2022 Admission to same day surgery center MD Dank Campo Work Phone: [facility] Work Phone: Start: 07-24-2022 End: 07-24-2022 ambulatory MD Dank Campo Work Phone: [facility] Work Phone: Start: 07-20-2022 End: 07-20-2022 ambulatory Imad Asaad Other [email or web address] [facility] [employer] Other Start: 07-20-2022 Patient encounter procedure Imad Asaad [facility] Start: 05-10-2022 End: 05-11-[address] DANK CAMPO Facility:[facility] Start: 04-14-2022 End: 04-15-[address] SORIN SHORE Facility:[facility] Start: 02-03-2022 End: 02-03-2022 Patient encounter procedure Peterson PETERSEN [facility] Start: 01-30-2022 End: 01-31-2022 ambulatory [...] 04-27-2033 Screening for malignant neoplasm of colon [facility] Start: 01-20-2031 DTaP,Tdap and Td Vaccines (3 - Td or Tdap) DTaP,Tdap and Td Vaccines (3 - Td or Tdap) [facility] Start: 08-15-2024 Adult BMI Screening Adult BMI Screening [facility] Start: 08-15-2024 Tobacco Screening Tobacco Screening [facility] Start: 02-25-2024 End: 02-25-2024 Patient encounter procedure 02/25/2024 10:30 AM EDT Office Visit [facility] [address] [place] [address] Hanna Laguerre MD [address] [place], [place] [id number] [facility] Start: 11-19-2023 End: 11-19-2023 Clinical Support 11/19/2023 8:00 PM EDT Clinical Support [facility] [address] [facility] [place] [address] [facility] Start: 10-29-2023 End: 10-29-2023 Patient encounter procedure 10/29/2023 1:15 PM EDT Office Visit [facility] [address] [place] [address] Ashli Ross DO [address] [place] [address] [facility] [facility] [address] Start: 10-28-2023 Hemoglobin A1c measurement Diabetes: Hemoglobin A1C [facility] Start: 08-29-2023 End: 08-29-2023 Patient encounter procedure 08/29/2023 7:45 AM EDT Office Visit [facility] [address] [place] [address] Dank Campo MD [address] [place] [address] [facility] Start: 08-23-2023 End: 08-23-2023 Patient encounter procedure [facility] Start: 08-15-2023 End: 08-15-2024 CT Chest for screening WO contrast CT low dose lung screenin (3mo 6mo follow-up) Imaging Routine Personal history of tobacco use, presenting hazards to health Expected: 08/15/2023, Expires: 08/15/2024 [employer] Work Phone: Comment on above: Expected: 08/15/2023, Expires: Start: 08-15-2023 End: 08-15-2024 Echo complete W/O contrast Echo complete W/O contrast Echocardiography Routine Obstructive sleep apnea syndrome CSA (central sleep apnea) Expected: 08/15/2023, Expires: 08/15/2024 [facility] Comment on above: Expected: 08/15/2023, Expires: Start: 08-09-2023 End: 08-09-2023 Patient encounter procedure 08/09/2023 8:30 AM EST Office [facility] [address] [facility] [place] [phone] Dexter Krishnamurthy, D[place] [address] [place], [place] [id number] [facility] Start: 08-01-2023 End: 08-01-2023 Patient encounter procedure 08/01/2023 10:30 AM EST Office Visit [facility] [address] [place] [id number] Jr. Johanne Hdez, DO [address] [place], [place] [id number] [facility] Start: 04-27-2023 [facility] Start: 04-11-2023 Administration of varicella zoster vaccine Zoster (Shingles) Vaccine (3 of 3) [facility] Start: 02-16-2023 COVID-19 Vaccine ( season) COVID-19 Vaccine ( season) [facility] Start: 02-16-2023 COVID-19 Vaccine ( season) COVID-19 Vaccine ( season) [facility] Start: 02-16-2023 Influenza vaccination Influenza Vaccine [facility] Start: 07-24-2022 [facility] Start: 04-15-2022 Adult BMI Screening Adult BMI Screening [facility] Start: 09-15-2020 Fall Risk Screening Fall Risk Screening [facility] Start: 09-15-1974 Urine screening for protein Diabetes: Urine Protein Screening [facility] Start: 09-15-1973 Adult BMI Follow Up Plan Adult BMI Follow Up Plan [facility] Start: 1967 Depression Screening Depression Screening [facility] Start: 1967 Tobacco Screening Tobacco Screening [facility] Start: 09-15-1965 Glaucoma screening Diabetes: Retinopathy Screening [facility] Start: 1955 Medicare Annual Wellness (AWV) Medicare Annual Wellness (AWV) [facility] Start: 1955 Screening for malignant neoplasm of colon [facility] Patient Education [facility] Work Phone: End: 08-15-2024 Polysomnography 4 or more parameters with PAP titration Polysomnography 4 or more parameters with PAP titration Sleep Center Routine Obstructive sleep apnea syndrome CSA (central sleep apnea) 1 Occurrences starting 08/15/2023 until 08/15/2024 [facility] Comment on above: 1 Occurrences starting 08/15/2023 until 08/15/2024 Immunizations Immunization Date Immunization Notes Care Provider Kiera johnston 04-22-2023 zoster vaccine recombinant Ashli Petznick DO Work Phone: [facility] 03-23-2023 RSV, recombinant, protein subunit RSVpreF, adjuvant reconstitu, 120mcg/0.5mL, PF (Arexvy) Ashli Petznick DO Work Phone: [facility] 02-14-2023 Influenza, Seasonal, Quadrivalent, Adjuvanted Sahli Petznick DO Work Phone: [facility] 02-14-2023 zoster vaccine recombinant Ashli Petznick DO Work Phone: [facility] 02-14-2023 influenza virus vaccine, unspecified formulation [facility] 02-14-2023 zoster vaccine, unspecified formulation [facility] 04-09-2022 COVID-19 mRNA Bivale nt Booster (Pfizer) MD Dank Campo Work Phone: [facility] 04-09-2022 Influenza, Seasonal, Quadrivalent, Adjuvanted Ashli Petznick DO Work Phone: [facility] 04-13-2021 COVID-19 mRNA, Comirnaty (Pfizer) MD Dank Campo Work Phone: [facility] 02-22-2021 Influenza, Seasonal, Quadrivalent, Adjuvanted Ashli Petznick DO Work Phone: [facility] 02-22-2021 pneumococcal polysaccharide vaccine, 23 valent Ashli Petznick DO Work Phone: [facility] 01-20-2021 tetanus and diphther ia toxoids, adsorbed, preservative free, for adult use (5 Lf of tetanus toxoid and 2 Lf of diphtheria toxoid) Imad Asaad Other [employer] Other 01-17-2021 influenza, seasonal, injectable Ashli Petznick DO Work Phone: [facility] 01-17-2021 Moderna SARS-CoV-2 Vaccination Ashli Petznick DO Work Phone: [facility] 10-16-2020 SARS-CoV-2 (COVID-19 ) mRNA BNT-162b2 vax Peterson PETERSEN [facility] 10-01-2020 COVID-19 mRNAAlfred (Pfizer) MD Dank Campo Work Phone: [facility] 09-08-2020 COVID-19 mRNAAlfred (Pfizer) MD Dank Campo Work Phone: [facility] 02-17-2020 influenza, injectabl e, quadrivalent, preservative free Ashli Petznick DO Work Phone: [facility] 02-09-2020 influenza, high dose seasonal, preservative-free Ashli Petznick DO Work Phone: [facility] 03-15-2019 influenza, injectabl e, quadrivalent, preservative free Ashli Petznick DO Work Phone: [facility] 02-25-2018 influenza, injectabl e, quadrivalent, preservative free Ashli Petznick DO Work Phone: [facility] 05-30-2017 pneumococcal conjuga te vaccine, 13 valent Ashli Petznick DO Work Phone: [facility] 05-30-2017 pneumococcal polysaccharide vaccine, 23 valent Ashli Petznick DO Work Phone: [facility] 03-02-2017 influenza nasal, unspecified formulation Ashli Petznick DO Work Phone: [facility] 03-02-2017 influenza virus vaccine, unspecified formulation [facility] 03-02-2017 influenza, injectabl e, quadrivalent, preservative free Ashli Petznick DO Work Phone: [facility] 03-05-2016 influenza, injectabl e, quadrivalent, preservative free Ashli Petznick DO Work Phone: [facility] 03-05-2016 influenza, seasonal, injectable Ashli Petznick DO Work Phone: [facility] 02-18-2015 zoster vaccine, live Ashli Petznick DO Work Phone: [facility] 02-01-2015 influenza, seasonal, injectable Ashli Petznick DO Work Phone: [facility] 08-18-2014 tetanus toxoid, redu inocencio diphtheria toxoid, and acellular pertussis vaccine, adsorbed Ashli Petznick DO Work Phone: [facility] 08-04-2013 pneumococcal conjuga te vaccine, 13 valent Ashli Petznick DO Work Phone: [facility] Payers Date Payer Category Payer Self-pay [id number] 2023 Unknown [id number] 2020 Medicare [id number] 2013 Unknown [id number]. 1.13.424.2.7.3.678 [id number] 1959 Medicare [id number] 1955 Unknown [id number] 2.16.840.1.930138.3.579.2.593 1955 Unknown [id number] 2.16.840.1.733554.3.579.2.593 1955 Unknown [id number] 2.16.840.1.251887.3.579.2.593 1955 Unknown [id number] 2.16.840.1.452849.3.579.2.593 1955 Unknown [id number] 2.16.840.1.650477.3.579.2.593 1955 Unknown [id number] 2.16.840.1.669877.3.579.2.593 1955 Unknown [id number] 2.16.840.1.409391.3.579.2.593 1955 Unknown [id number] 2.16.840.1.871260.3.579.2.593 1955 Unknown [id number] 2.16.840.1.485121.3.579.2.1286 1955 Unknown [id number] 2.16.840.1.823541.3.579.2.1286 1955 Unknown [id number] 2.16.840.1.074529.3.579.2.1286 1955 Unknown [id number] 2.16.840.1.964838.3.579.2.727 1955 Unknown [id number] 2.16.840.1.019135.3.579.2.727 1955 Unknown [id number] 2.16.840.1.290159.3.579.2.727 1955 Unknown [id number] 2.16.840.1.087812.3.579.2.727 1955 Unknown [id number] 2.16.840.1.160996.3.579.2.727 1955 Unknown [id number] 2.16.840.1.512922.3.579.2.727 1955 Unknown [id number] 2.16.840.1.904010.3.579.2.727 1955 Unknown [id number] 2.16.840.1.265087.3.579.2.196 1955 Unknown [id number] 2.16.840.1.569102.3.579.2.1259 1955 Unknown [id number] 2.16.840.1.186127.3.579.2.125 1955 Unknown [id number] 2.16.840.1.387174.3.579.2.125 1955 Unknown [id number] 2.16.840.1.629892.3.579.2.1258 1955 Unknown [id number] 2.16.840.1.672472.3.579.2.1258 1955 Unknown [id number] 2.16.840.1.824295.3.579.2.1258 1955 Unknown [id number] 2.16.840.1.795139.3.579.2.125 1955 Unknown [id number] 2.16.840.1.175126.3.579.2.1258 1955 Unknown [id number] 2.16.840.1.713868.3.579.2.125 1955 Unknown [id number] 2.16.840.1.814513.3.579.2.125 1955 Unknown [id number] 2.16.840.1.702736.3.579.2.125 1955 Unknown [id number] 2.16.840.1.485354.3.579.2.1258 1955 Unknown [id number] 2.16.840.1.201127.3.579.2.1258 1955 Unknown [id number] 2.16.840.1.796528.3.579.2.1258 1955 Unknown [id number] 2.16.840.1.338777.3.579.2.1259 Medicare Medicare [id number] Unknown [place] BC/BS [id number] Unknown Regular Insurance [id number] Unknown [id number] 2.16.840.1.070928.3.579.2.531 Unknown [id number] 2.16.840.1.446648.3.579.2.531 Unknown [id number] 2.16.840.1.101502.3.579.2.531 Unknown [id number] 2.16.840.1.477029.3.579.2.531 Unknown [id number] 2.16.840.1.817590.3.579.2.531 Unknown [id number] 2.16.840.1.532215.3.579.2.531 Worker's Compensation [employer] [id number] Worker's Compensation [id number] Social History Date Type Detail Facility Start: 02-03-2022 End: 08-15-2023 Ex-smoker (finding) [facility] Start: 06-29-2020 End: 01-09-2023 Male [facility] Start: 1955 Sex Assigned At Male [facility] Start: 06-18-1974 End: 2021 History of tobacco use Current smoker [facility] Start: 06-18-1974 End: 2021 History of [...] to any clubs or organizations such as islam groups, unions, fraVudu or athletic groups, or school groups? Yes [...] 05-01-2023 Alcohol Comment Caffeine intake: non e [facility] Start: 1955 Sex Assigned At Not on file [facility] Start: 12-22-2020 Tobacco smoking stat [facility] Smokes tobacco daily [employer] [facility] Start: 04-15-2021 End: 08-16-2023 Alcohol intake Current non-drinker of alcohol (finding) [facility] Medical Equipment Procedure Code Equipment Code Equipment Origin al Text Equipment Identifier Dates EGD (esophagogastroduod enoscopy) Video capsule endoscopy system [id number] -DDC-B FDA Start: 08-18-2020 USE DIRECTED FOUR TIMES DAILY [id number] Start: 10-09-2022 use to test BLOO D SUGAR THREE TIMES DAILY [id number] Start: 09-19-2022 use to test BLOO D SUGAR THREE TIMES DAILY [id number] Start: 11-01-2022 [employer] 4.75 - Sna - [id number] Start: 12-10-2017 Incv/Swivelock 4.75 Use [id number] - Sna - [id number] Start: 07-19-2020 Goals Date Patient Goal Desired Activity /State Personal health goal Comment on above: Formatting of this n ote might be different from the original. Evaluation of progress towards goal: Home self care with childrens support Functional Status Date Assessment Result Facility 02-12-2023 Functional Status N/A [facility] 02-03-2022 N/A [facility] Clinical Notes 11-04-2020 to 08-27-2023 [...] for titration appt documented in this encounter [facility] 08-27-2023 Telephone encounter Note ----- Message from SONNY Denis sent at 08/24/2023 10:25 AM EST ----- EF >45% ok for ASV [facility] 08-27-2023 Telephone encounter Note Noted below in sleep lab encounter and on appt desk for techs for titration appt [facility] 08-17-2023 Miscellaneous Notes 08/15 received CPAP order 08/16 Scheduled CPAP at [facility] 6 Confirmation mailed and emailed [employer] Medicare CPAP order and 08/15 Loree notes in epic With TCO2 monitoring. Please obtain baseline in supine position. Starting pressure IPAP25 EPAP10 PS 5 notes CSA on last download plans for Echo prior to titration documented in this encounter [facility] 08-17-2023 Telephone encounter Note 08/15 received CPAP order 08/16 Scheduled CPAP at [facility] 11/18 Confirmation mailed and emailed [employer] Medicare CPAP order and 08/15 Loree notes in epic With TCO2 monitoring. Please obtain baseline in supine position. Starting pressure IPAP25 EPAP10 PS 5 notes CSA on last download plans for Echo prior to titration [facility] [facility] 08-15-2023 History of Presen t illness Narrative [...] humidifier. Cleaning supplies with soap and water. Nolan Sleepiness Scale: Sitting and Reading: (!) Moderate [...] Anemia Unknown Arthritis Benign prostatic hyperplasia Cancer ([facility] PROSTATE COPD (chronic obstructive pulmonary disease) ([facility] Unknown Diabetes mellitus type 2, controlled ([facility]) GERD (gastroesophageal reflux disease) History [...] Titration: 03/21/19 PS08/2014 w/ AHI 95 DME: [facility] Data card was available for PAP usage [...] Standing Expiration Date: 08/15/2024 Order Specific Question: [facility] required diagnosis: Answer: Personal history of nicotine [...] titration Order Specific Question: Follow Up Answer: [facility] to read and follow [...] not to drive if sleepy, and to door puller if sleepiness occurs while driving. Above [...] that have escaped final proofreading. Gregoria Ralph [facility] Office: [phone] 2:57 PM on 08/15/2023 CC: MD Gregoria GONZALEZ APRN-CNP 08/16/23 [id number] documented in this encounter [facility] 08-15-2023 Instructions SONNY Denis - 08/15/2023 1:15 PM EST If you re looking for general health and wellness resources, please visit [email or web address]. documented in this encounter [facility] Miscellaneous Notes Received sleep referral from Valeria Mckeon NP. Pt is already an established pt and last saw in 2020- was recommended to follow up with KW. However he was a no show for his last 2 appt with our office. Chat to Tahmina to advise if still to schedule appt. documented in this encounter [facility] 08-02-2023 Telephone encounter Note Received sleep referral from Valeria Mckeon NP. Pt is already an established pt and last saw in 2020- was recommended to follow up with KW. However he was a no show for his last 2 appt with our office. Chat to Tahmina to advise if still to schedule appt. [facility] 07-30-2023 History of Presen t illness Narrative Associated Problem(s): Type 2 diabetes mellitus with diabetic polyneuropathy, with long-term current use of insulin ([facility]) During the appointment today all pertinent labs, [...] Breakfast Lunch Dinner Snacks Drinks Premade meal ([place] and dressing) (Mac and cheese) Protein shake [...] polyneuropathy, with long-term current use of insulin ([facility]) During the appointment today all pertinent labs, [...] (BMI) of 36.0 to 36.9 in adult ([facility]) - Primary Follow up in about 3 [...] ( MAX 100 UNITS A DAY) LANCETS (Commun.itTOUCH DELICA PLUS [id number]) MISC use to test BLOOD SUGAR THREE [...] mg) before bedtime. documented in this encounter [facility] 04-27-2023 Procedure note [facility] 04-10-2023 Evaluation note Encounter Date Diagnosis Assessment Notes Mar, GERD (gastroesophage al reflux disease) (ICD-10 - K21.9) The patient continues to complain of ongoing regurgitation. He is taking Lansoprazole 30 mg dialy & we will increase this to 30 mg bid. Mar, Hemorrhoids (ICD-10 - K64.9) Mar, Alternating constipation and diarrhea (ICD-10 - R19.8) [facility] Other 10-03-2023 Evaluation note* Encounter Date Diagnosis Assessment Notes Treatment Notes Treatment Clinical Notes Mar, Gastroesophageal ref lux disease with esophagitis (ICD-10 - K21.0) [facility] Other 08-28-2023 Hospital Discharge instructions Patient Education [...] greater thelikelihood that the cancer will spread. [place] 6 or lower: This indicates that the cancer cells look similar to normal prostate cells (well differentiated). [place] 7: This indicates that the cancer cells [...] stress of having cancer. General instructions Take staj-cqq-uyegwqa and prescription medicines only as told by your health care provider. If you have to go to the hospital, notify your cancer specialist (oncologist). Keep all follow-up visits. This is important. Where to find more information [place] [employer]: www.cancer.org [place] Society of Clinical Oncology: www.cancer.net National Cancer Medicine [place]: www.cancer.gov Contact a health care provider if: [...] provider. Document Revised: 08/31/2021 Document Reviewed: 08/31/2021 [employer] Patient Education 2022 [employer]. Follow Up Care 02/03/2022 09:06:37 With:NICOLA RAYMUNDO, Peterson Owens, URL Address: [facility] [address] , [place] [address] [phone] When: Unknown Comments:1 yr w/ PSA [facility] 04-05-2023 Evaluation note* Encounter Date Diagnosis Assessment Notes Treatment Notes Treatment Clinical Notes Sep, Gastroesophageal ref lux disease with esophagitis (ICD-10 - K21.0) [facility] Other 02-06-2023 [facility] Evaluation note* Encounter Date Diagnosis Assessment Notes Treatment Notes Treatment Clinical Notes Jul, Diarrhea (ICD-10 - R19.7) Jul, GERD (gastroesophageal reflux disease) (ICD-10 - K21.9) Jul, Hemorrhoids (ICD-10 - K64.9) PATIENT TO START ANUSOL CREAM USE SITZ BATH NEEDED Jul, Dysphagia (ICD-10 - R13.10) [email or web address] [facility] [employer] Other 10-28-2022 NotePROCEDURE: XR FOOT RT MIN 3 VIEWS COMPARISON: None. HISTORY: Pain in right foot FINDINGS: BONES:No acute fracture or dislocation. Persistent hammertoe deformities. Moderate hallux valgus. 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 Bulky enthesopathic spurring of the calcaneus SOFT TISSUES:Negative. No visible soft tissue swelling. EFFUSION:None visible. OTHER: Negative. IMPRESSION: Degenerative changes Electronically authenticated by: SORIN SHORE Date: 2022-04-14 18:01[id number] Hospital Discharge instructions Patient Education 02/03/2022 08:55:56 [...] urethra. Follow these instructions at home: Take pywy-xtz-gjczput and prescription medicines only as told by [...] 06/04/2006 Document Revised: 04/29/2019 Document Reviewed: 07/09/2017 [employer] Patient Education 2020 [employer]. Follow Up Care 08/05/2021 10:59:30 With:NICOLA RAYMUNDO, Peterson Owens, URL Address: [facility] [address], [place] [address]- When:1 year Comments:W/ PSA [facility] 08-17-2021 NoteHNO ID: [id number] Author: Fawad Diaz MD Service: ? Author Type: Physician Type: Progress Notes Filed: 02/03/2021 9:48 AM Note Text: Radiation Oncology - Follow Up Note PATIENT NAME: Milad Syemour PATIENT DIAGNOSIS: DIAGNOSIS: Prostate adenocarcinoma, initial PSA [...] ASSESSMENT/PLAN:DIAGNOSIS: Prostate adenocarcinoma, initial PSA 14.65, biopsy Penfield score 3 + 3 = 6 (grade [...] Fawad Diaz MD cc: Dank Campo MD ([facility]) [address] [place] [address] Dr. Petersen Portions of the above note extracted and edited from previous visit as well as active information included in the EMR.[facility] 11-04-2020 NoteHNO ID: [id number] Author: Fawad Diaz MD Service: ? Author [...] Fawad Diaz MD cc: Dank Campo MD ([facility]) [address] [place] [id number] [address] [facility] Future Appointments Appointment Date:02/12/2023 09:15:00 AM Scheduled Provider:Peterson PETERSEN MD Location:[facility] Appointment Type:URO Office Visit Diagnostic Tests Pending * PSA Total 02/03/22 [facility] evaluation + Plan note Future Appointments Appointment Date:02/12/2023 09:15:00 AM Scheduled Provider:Peterson PETERSEN MD Location:[facility] Appointment Type:URO Office Visit [facility] evaluation + Plan note Future Appointments Appointment Date:02/15/2024 08:15:00 AM Scheduled Provider:Peterson PETERSEN MD Location:[facility] Appointment Type:URO Office Visit Diagnostic Tests Pending * PSA Total 02/12/23 [facility] evalpgdyoc noteNo assessment information available [facility] Work Phone: Evaluhukff noteNo InformationNort [employer] Other Evaluation note* Diagnosis Class 2 severe obesity due to excess calories with serious comorbidity and body mass index (BMI) of 36.0 to 36.9 in adult ([facility])- Primary Type 2 diabetes mellitus with diabetic polyneuropathy, with long-term current use of insulin ([facility]) documented in this encounter [facility] HealthcareEvaluation note* Diagnosis Onset Date Resolution Status H/O rotator cuff surgery acu te [facility] Work Phone: Evaluation note* Diagnosis Personal history of tobacco use, presenting hazards to health- Primary Obstructive sleep apnea syndrome Obstructive sleep apnea (adult) (pediatric) CSA (central sleep apnea) Unspecified sleep apnea documented [facility] Author Kike Bernal [facility] July 24, 2022 1:05pm Note Date/Time July 24, 2022 1 :05pm [facility] [address] [place] [address] Gastroenterology H&P Signed Patient: Milad Seymour MR#: [id number] : 1955 Acct:[id number] Age/Sex: 66 / M Adm Date: 3 Loc: Room: Type: [facility] Attending Dr: Kike Bernal MD Copies to: [...] <Electronically signed by Kike Bernal MD> 07/24/22 6069 [facility] Work Phone: History and physical note Author Kike Bernal [facility] April 27, 2023 11:41am Note Date/Time April 27, 2023 11:41am [facility] [address] [place] [address] Gastroenterology H&P Signed Patient: Milad Seymour MR#: [id number] : 1955 Acct:[id number] Age/Sex: 67 / M Adm Date: 3 Loc: Room: Type: [facility] Attending Dr: Kike Bernal MD Copies to: [...] signed by Kike Bernal MD> 04/27/23 1141 [facility] Work Phone: History general Narrative - [...] History none in the last year 20 [employer] Other Hospital course Narrative No data available for this section [facility] Hospital Discharge instructions Additional Instructions [...] problems. -Follow up with PCP. -Office number [phone]. [facility] Work Phone: Hospital Discharge instructions No data available for this section [facility] Hospital Discharge instructions Additional Instructions [...] in the office as scheduled -Office number [phone]. [facility] Work Phone: InstructionsNot on filedocumented in this encounter [facility]ructions[facility] on filedocumented in this encounter [facility] No data available for this section [facility] Summary Purpose Family History No [...] more parameters with PAP titration Gregoria Ralph SEPARATOR OPERATOR [employer] [address] [facility], [address] [address] Referral ID Status Reason Start Date Expiration Date V isits Requested Visits Authorized [id number] Pending Review 08/15/2023 08/14/2024 1 1 Specialty Diagnoses / Procedures Referred By Anabel t Referred To Contact Diagnoses Obstructive sleep apnea syndrome CSA (central sleep apnea) Procedures Echo complete W/O contrast Gregoria Ralph SEPARATOR OPERATOR [employer] COORDINATOR [address] [address] Phone: [phone] Referral ID Status Reason Start Date Expiration Date V isits Requested Visits Authorized [id number] Authorized 08/15/2023 11/12/2023 1 1 Specialty Diagnoses / Procedures Referred By Anabel t Referred To Contact Radiology Diagnoses Personal history of tobacco use, presenting hazards to health Procedures CT low dose lung screenin (3mo 6mo follow-up) Gregoria Ralph SEPARATOR OPERATOR [employer] COORDINATOR [address] [address] Phone: [phone] Referral ID Status Reason Start Date Expiration Date V isits Requested Visits Authorized [id number] Authorized 08/16/2023 11/13/2023 1 1 Additional Source Comments (unrecognized sect ion and content) No Status Records FoundNo Status Records FoundNo Status Records FoundNo Status Records FoundNo Status Records FoundNo Status Records FoundNo Status Records FoundNo Status Records Found INFORMATION SOURCE (unrecogn ized section and content) DATE CREATED AUTHOR 08/06/2021 [facility] DATE CREATED AUTHOR AUTHOR'S ORGANIZ ATION 10/24/2022 [facility] DATE CREATED AUTHOR AUTHOR'S ORGANIZ ATION 08/18/2023 [facility] DATE CREATED AUTHOR AUTHOR'S ORGANIZ ATION 08/24/2023 [facility] DATE CREATED AUTHOR AUTHOR'S ORGANIZ ATION 08/31/2023 [facility] DATE CREATED AUTHOR AUTHOR'S ORGANIZ ATION 10/05/2023 [facility] DATE CREATED AUTHOR AUTHOR'S ORGANIZ ATION 10/06/2023 [facility] DATE CREATED AUTHOR AUTHOR'S ORGANIZ ATION 10/12/2023 [facility] EPIC Care Team (unrecognized sect ion and content) [...] July 17, 2023 End: July 17, 2023 Customer Project Manager Relationship Specialty Start Date End Date Dank Campo MD [address] [place] [address] PCP - General Family Medicine 07/25/23 Customer Project Manager Relationship Specialty Start Date End Date Dank Campo MD [address] [place] [address] PCP - General Family Medicine 07/25/23 Customer Project Manager Relationship Specialty Start Date End Date Dank Campo MD [address] [place], [place] [id number] PCP - General Family Medicine 12/10/17 Team Status: Inactive Member Role Status Dates Dank Campo MD Primary Care Provider Active S tart: July 24, 2023 End: July 24, 2023 Edd Holden NP-C Attending Provider Active Start: July 24, 2023 End: July 24, 2023 Team Status: Inactive Member Role Status Dates Dank Campo MD Primary Care Provide r, Attending Provider, Referring Provider Active Start: August 09, 2023 End: August 09, 2023 Customer Project Manager Relationship Specialty Start Date End Date Dank Campo MD [address] [place] [address] PCP - General Family Medicine 12/10/17 Customer Project Manager Relationship Specialty Start Date End Date Dank Campo MD [address] [place] [address] PCP - General Family Medicine 12/10/17 REASON FOR VISIT (unrecogniz ed section and content) Reason Comments Diabetes Reason Comments Sleep Apnea DME: [facility] Specialty Diagnoses / Procedures Referred By Anabel salinas Referred To Contact Pulmonary Medicine / Sleep Medicine Diagnoses Obstructive sleep apnea syndrome Jyoti Roth, SEPARATOR OPERATOR [employer] COORDINATOR [address] [facility] [address] [place] [address] sp Pulm Sleep [facility] [address] [place] [address] [place] [address] Referral ID Status Reason Start Date Expiration Date Visits Requested Visits Authorized [id number] Pending Review Specialty Services Required 08/13/2023 08/12/2024 [...] BE BASED ON THE PRIMARY CLINICAL RECORDS. [facility]. provides no warranty or guarantee of the accuracy or completeness of information in this document.
[2023-10-15 08:17] VITALS: BP 145/79; PULSE 67; TEMP 36.5; O2SAT 97
[2023-10-15 08:23] LABS: Glucometer 205 mg/dL (74-106)
[2023-10-15 08:56] VITALS: BP 178/81; PULSE 70; O2SAT 95
[2023-10-15 08:57] VITALS: BP 177/84; PULSE 71; O2SAT 97
--- NOTE | 2023-10-15 09:01 | W.PM.PROCNOT ---
Date of procedure: 10/15/23 Pre-op diagnosis: Lumbar stenosis with neurogenic claudication Post-op diagnosis: same as pre-op Procedure: Procedure: Bilateral L4-5 transforaminal epidural steroid injection Medications: Bupivacaine 0.25% 2cc, lidocaine 2% 1cc, kenalog 80mg The patient was seen and examined in the preoperative holding area.? Informed consent was obtained and placed on the chart.? Patient was brought to the medical procedure unit and placed in the prone position where a timeout was completed verifying the correct patient, procedure site, position, and planned special equipment using sterile aseptic technique.? Under direct fluoroscopic visualization a 25-gauge Quincke tipped spinal needle was advanced at level left L4-5 to the designated neural foramen where contrast dye was injected to show adequate spread.? There was no evidence of vascular or adverse uptake.? Epidural spread was appreciated.? The above-mentioned injectate was then placed in a 1.5 mL aliquot preceded by negative aspiration.? The needle was removed. The same procedure, at the same level, was completed on the opposite side. ? Patient was taken to the postprocedural recovery area and monitored for an appropriate length of time before found suitable for discharge in the accompaniment of a responsible adult. Anesthesia: Local Surgeon: Roma Lopez Pathology: none sent Condition: stable Disposition: no change
[2023-10-15] MEDS: 0.9 % SODIUM CHLORIDE 10 ML SYRINGE - SALINE FLUSH INJ (09:02)
[2023-10-15] MEDS: BUPIVACAINE HCL 0.25% PF 25 MG/10 ML VIAL INJ (09:03)
[2023-10-15] MEDS: TRIAMCINOLONE ACETONIDE 40 MG/ML VIAL 80 MG INJ (09:03)
[2023-10-15] MEDS: LIDOCAINE HCL 2% PF 100 MG/5 ML VIAL 2.5 ML INJ (09:03)
[2023-10-15] MEDS: IOHEXOL 240 MG/ML - 10 ML VIAL 24 MG INJ (09:03)
== END 2023-10-15 09:05 | disposition home or self-care (01) ==
LOC: SURGOUT 07:45
PROVIDERS: PCP Family Medicine; Visit Provider Anesthesiology
DX: M48.062 Spinal stenosis, lumbar region with neurogenic claudication (principal); Z79.4 Long term (current) use of insulin
CPT/HCPCS: 36415; 64483; 82948; Q9966

== ENCOUNTER 2023-11-05 06:37 | Day surgery (SDC) | payer MEDICARE, SELFPAY ==
--- OUTSIDE RECORDS SUMMARY | 2023-11-05 06:41 | XMS_ITS | CCD ---
Author Organization [facility] Care Team Providers Care Neuropathologist Name Role Phone DANK CAMPO Primary Care Physician MD Dank Campo Primary Care Provider [phone] MD Kike Bernal Attending Provider Asaad, Imad [...] DR DANK Leon Admitting Unavailable NADERER, DR DNAK Leon Attending Unavailable NADERER, DR DANK Leon Consulting Unavailable NADEREGraciela, DR DANK Leon Primary Care Unavailable [place], DR SORIN Rodarte Consulting Unavailable NADERER, DR DANK Leon Admitting Unavailable NADERER, DR DANK Leon Attending Unavailable NADERER, DR DANK Leon Primary Care Unavailable FELIXEREGraciela, DR DANK Leon Consulting Unavailable MD Dank Campo Primary Care Provider [phone] MD Kike Bernal Attending Provider MD Dank Campo Attending Provider MD Dank Campo Attending Provider Dank Campo MD Primary Care Provider Dank Campo MD Primary Care Provider [phone] MD Dank Campo Primary Care Provider KERRI Holden Attending Provider [phone] MD Dank Campo Referring Provider GREGORIA RALPH Attending Unavailable NADERER, DANK Referring Unavailable NADERER, DANK Primary Care Unavailable KREGREGORIA NINO Referring Unavailable NADERER, DANK Primary Care Unavailable KREGREGORIA NINO Referring Unavailable NADERER, DANK Primary Care Unavailable Peterson PETERSEN Attending Unavailable JINA, ROSALVA De Luna Attending Unavailable JINA, ROSALVA De Luna Attending Unavailable DEJUAN PETERESN Attending Unavailable JINA, ROSALVA De Luna Admitting Unavailable JINA, ROSALVA De Luna Attending Unavailable JINA, ROSALVA De Luna Admitting Unavailable JINA, ROSALVA De Luna Attending Unavailable Peterson PETERSEN Attending Unavailable Jessica RAYMUNDO, Roma Arteaga Attending Unavailable Jessica RAYMUNDO, Roma Arteaga Attending Unavailable RUS, DEXTER Leon Attending Unavailable PETZNDHARA, ASHLI Scott Attending Unavailable PETZNDHARA, ASHLI Scott Attending Unavailable JR. HDEZ GEORGE C Attending Unavaila ble LAST, DEXTER Leon Attending Unavailable NADEREDANK Owens Referring Unavailable NADERER, DANK Attending Unavailable RUSHER, DEXTER Leon Attending Unavailable HOLDENEDD MEJIA Attending Unavailable RUSHER, DEXTER Leon Attending Unavailable RUSHER, DEXTER Leon Attending Unavailable JYOTI ROTH Attending Unavailable NADERER, DANK Attending Unavailable RUSHER, DEXTER Leon Attending Unavailable PETZNDHARA, ASHLI Scott Attending Unavailable EDD HOLDEN Attending Unavailable EDD HOLDEN Referring Unavailable NADERER, DANK Attending Unavailable RUS, DEXTER Leon Attending Unavailable Naderer, Dank Primary Care Unavailable Asaad, Imad Admitting Unavailable Asaad, Imad Attending Unavailable Naderer, Dank Attending Unavailable Felixeregraciela, Dank Admitting Unavailable Naderer, Dank Primary Care Unavailable Naderegraciela, Dank Primary Care Unavailable Naderer, Dank Attending Unavailable NadererDank Admitting Unavailable Naderer, Dank Primary Care Unavailable Edd Holden Admitting Unavailable Edd Holden Attending Unavailable Dolores, Kike Attending Unavailable Dank Campo Primary Care Unavailable Dolores Imad Admitting Unavailable Dank Campo Attending Unavailable Dank Campo Referring Unavailable Dank Campo Admitting Unavailable Dank Campo Primary Care Unavailable Dank Campo Primary Care Unavailable Jyoti Roth Admitting Unavailable Jyoti Roth Attending Unavailable Allergies Allergy Classification Reported Allergen(s) Allergy Type Date of Onset Reaction(s) Facility (1 source) No Known Medication Allergies; 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: [No Known Medication Allergies] Propensity to adverse reactions (disorder) [facility] Repository Medications Current Medications Medication Drug Class(es) [...] Ordered Start: 01-30-2019 take 1 capsule by [facility] twice daily celecoxib (CeleBREX) 200 MG capsule Indications: Lumbago with sciatica, right side TAKE 1 CAPSULE BY MOUTH TWICE DAILY 60 capsule 5 07/24/2023 Active Continuous Blood Gluc Sensor (Dexcom G7 Sensor) [facility] [place]4 sources) Start: 06-05-2023 End: 06-04-2024 Continuous Blood Gluc Sensor (Dexcom G7 Sensor) misc Indications: Type 2 diabetes mellitus with diabetic polyneuropathy, with long-term current use of insulin (CMS/[facility]) Inject 1 Device under the skin See administration instructions Change every 10 days 9 each 3 06/05/2023 06/04/2024 Active Continuous Blood Gluc Sensor (FreeStyle Cornelius 2 Sensor) misc (2 sources) Start: 05-23-2023 End: 07-30-2023 Continuous Blood Gluc Sensor (FreeStyle Cornelius 2 Sensor) [facility] Indications: Type 2 diabetes mellitus with diabetic polyneuropathy, with long-term current use of insulin (CMS/HCC) Use as directed 2 each 11 05/23/2023 [...] 0 12/28/2022 Active fluticasone 0.05 mg/inh Nasal [place] (3 sources) Start: 07-28-2019 fluticasone 0.05 mg/inh Nasal [place] Nasal, Daily, Refill(s) 0 Start Date: 07/28/19 [...] the skin. 0 08/09/2023 08/08/2024 Active Start: 11-10-2023 Insulin Glargi ne (Lantus Solostar U-100 Insulin) 100 unit/mL (3 mL) Insulin Pen Active 60 UNIT SUBCUT Every evening April 27, 2023 12:00am Start: 01-16-2023 End: 07-30-2023 Lantus SoloStar 100 UNIT/ML pen Indications: Type 2 diabetes mellitus with diabetic polyneuropathy, with long-term current use of insulin (CMS/HCC) Inject 60 Units under the skin at bedtime 30 mL 3 07/30/2023 Active 3 ml insulin lispro 100 unt/ml pen injector (12 sources) Insulin Analog Start: 06-05-2023 insulin lispro (HumaLOG) 100 UNIT/ML injection Indications: Type 2 diabetes mellitus with diabetic polyneuropathy, with long-term current use of insulin (CMS/HCC) INJECT 8-15 UNITS BREAKFAST, 20 UNITS LUNCH [...] polyneuropathy, with long-term current use of insulin ([facility]) Inject 0.5 mg under the [...] Drug Class(es) Dates Sig (Normalized) Sig (Original) [id number] 200 actuat albuterol 0.09 mg/actuat metered dose inhaler (2 sources) beta2-Adrenergic Agonist Start: 12-22-2020 End: 08-15-2023 take 2 puff(s) by inhalation every four hours as needed for wheezing albuterol (PROVENTIL HFA;VENTOLIN HFA) 90 mcg/actuation inhaler Indications: Chronic obstructive pulmonary disease, unspecified COPD type ([facility]) Inhale 2 puffs every 4 [...] 12-08-2020 End: 03-14-2021 Dibucaine Discontinued 1 APPLIC AR Four times daily December 07, 2020 11:00pm March 14, 2021 [...] Fluticasone Propionate (Flonase Allergy Relief) 50 mcg/actuation [place],Suspension Discontinued 1 SPRAY INTRANASAL Daily February 10, 2020 11:00pm July 24, 2022 12:24pm Start: 07-28-2019 fluticasone 0. 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; 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: [OTH GROUP HOME CURRENT DRUG THERAPY] Onset: 3 Episodic Other [...] states; 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: [Other postprocedural status] 07-24-2023 Episodic Screening and history of mental health [...] sources) Long-term current use of insulin; 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: [shelter (current) use of insulin] Onset: 12-04-2022 12-04-2022 [...] disorder, right ear] Onset: 12-04-2022 12-04-2022 Episodic Residual codes; unclassified (1 source) Other specified postprocedural states; 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: [Other specified postprocedural states] Onset: 07-24-2023 Episodic Substance-related disorders (8 sources) Cigarette smoker ; 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: [Nicotine dependence, cigarettes, uncomplicated] Onset: 12-04-2022 Resolved: 06-07-2023 10-06-2019 Chronic Results Test Name Value Interpretation Reference Range Facility NM gastric emptying studyon 08-22-2023 NM gastric emptying study [facility] [place] [address] Nuclear Medicine Report Signed Patient: Milad Seymour MR#: [id number] : 1955 Acct:[id number] Age/Sex: 67 / M ADM Date: 08/22/23 Loc: NM Room: Type: [facility] Attending Dr: Kike Bernal MD Copies to: MD Shaheen Ralph Jr, DO Ordering Provider: Kike Bernal MD Date of Service: 08/22/23 NM/NM gastric emptying study: R11.10 - Vomiting, unspecified [...] Grimes Jr., D.OJitendra08/22/2023 12:21 PM Dictation Location: [place] [address] Transcribed By: [facility] 08/22/23 1221 Dictated By: Shaheen Grimes Jr, DO 08/22/23 1215 Signed By: 08/22/23 1221 Normal [facility] Glucose Poct Glucometerson 0 08-20-2023 Glucose [Mass/Vol] 182 mg/dL Normal [facility] Comment on above: Result Comment: [facility] Glucose Reference Range is dependent on time and content of last meal. Glucose of more than 200 mg/dL in a nonstressed, ambulatory subject supports the diagnosis of Diabetes Mellitus. PERFORMED BY: [address] [address] PATHOLOGIST SERVICE ORDER DISPATCHER JEANNINE VAZQUEZ M.D. Performed By: #### G LULS #### Point of Care testing , Glucose [Mass/Vol] 227 mg/dL Normal [facility] Comment on above: Result Comment: [facility] Glucose Reference Range is dependent on time and content of last meal. Glucose of more than 200 mg/dL in a nonstressed, ambulatory subject supports the diagnosis of Diabetes Mellitus. PERFORMED BY: [address] [address] PATHOLOGIST SERVICE ORDER DISPATCHER JEANNINE VAZQUEZ M.D. Performed By: #### G LULS #### Point of Care testing , XR pre/post mri xrayon 08-19 XR pre/post mri xray [facility] [place] [address] [place] [id number] MRI Report Signed Patient: Milad Seymour MR#: [id number] : 1955 Acct:[id number] Age/Sex: 67 / M ADM Date: 08/20/23 Loc: [place] Room: Type: [facility] Attending Dr: Dank Campo MD Copies to: Dank Campo MD Ordering Provider: Dank Campo MD Date of Service: 08/20/23 MR/MR lumbar spine wo con: [id number] ([id number]) XR/XR pre/post mri xray: PRE LUMBAR MRI [...] Tom Chanel M.D.08/20/2023 1:02 PM Dictation Location: [place] [address] Transcribed By: [facility] 08/20/23 1302 Dictated By: Tom Chanel DO 08/20/23 1250 Signed By: 08/20/23 1302 Normal [facility] HbA1c (Bld) [Mass fraction]o n 07-30-2023 Interpretation and review of laboratory results Abnormal [facility] - Hematology and Cell countson 07-30-2023 HbA1c (Bld) [Mass fraction] 8.9 % [facility] CT shoulder LT w conon 07-24 CT shoulder LT w con [facility] [place] [address] [place] [address] CT Scan Report Signed Patient: Milad Seymour MR#: [id number] : 1955 Acct:[id number] Age/Sex: 67 / M ADM Date: 07/24/23 Loc: XD Room: Type: [facility] Attending Dr: Edd Holden CARDIAC NURSE SPECIALIST-C Copies to: Edd Holden DISTRICT MANAGER Ordering Provider: Edd Holden CNP Date of [...] Kamran Chavira M.D.07/24/2023 1:48 PM Dictation Location: [place] [address] Transcribed By: [facility] 07/24/23 1341 Dictated By: Kamran Chavira II, MD 07/24/23 1336 Signed By: 07/24/23 1348 Normal [facility] [place] guided needle placementon 07-24-2023 [place] guided needle placement [facility] [place] [address] [place] [address] Fluoroscopy Report Signed Patient: Milad Seymour MR#: [id number] : 1955 Acct:[id number] Age/Sex: 67 / M ADM Date: 07/24/23 Loc: XD Room: Type: [facility] Attending Dr: Edd Holden CARDIAC NURSE SPECIALIST-C Copies to: Edd Holden DISTRICT MANAGER Ordering Provider: Edd Holden CNP Date of [...] Kamran Chavira M.D.07/24/2023 12:39 PM Dictation Location: [place] [address] Transcribed By: WOODY 07/24/23 1239 Dictated By: Kamran Chavira II, MD 07/24/23 1231 Signed By: 07/24/23 1239 Normal [facility] Glucose Glucometer (BldC) [M ass/Vol]Ordered By: Kike Bernal on 04-27-2023 Glucose [Mass/Vol] 189 mg/dL [facility] Comment on above: Random Glucose Refer ence Range is dependent on time and content of last meal. Glucose of more than 200 mg/dL in a nonstressed, ambulatory subject supports the diagnosis of Diabetes Mellitus. Glucose Poct Glucometerson 1 06-27-2022 Commemt1 Glu2: Cleaned Meter Normal [facility] Comment on above: Result Comment: PERF ORMED BY: [facility] [address] [place] [address] PATHOLOGIST SERVICE ORDER DISPATCHER JEANNINE VAZQUEZ M.D. Performed By: #### G LUCI #### Point of Care testing , Glucose [Mass/Vol] 189 mg/dL Normal [facility] Comment on above: Result Comment: [place] om Glucose Reference Range is dependent on time and content of last meal. Glucose of more than 200 mg/dL in a nonstressed, ambulatory subject supports the diagnosis of Diabetes Mellitus. Performed By: #### G LUCI #### Point of Care testing , William 04-27-2023 L ------ Specimen: [id number] Received: 04/27/23 Status: MASSIEL Junior Num: [id number] Spec Type: Surgical Subm Dr: Kike Bernal MD Tissues: A Colon Biopsy (RANDOM COLON) Procedures: HE/2, Gross/Micro L4 Age/ Patient Sex Location Account Attending Physician Milad Seymour/M [id number] Kike Bernal MD SPEC NUM: [id number] RECD: 04/27/23 STATUS: MASSIEL HOLLOWAY NUM: [id number] KURT: 04/27/23- [facility] DR: Kike Bernal MD ENTERED: 04/27/[address] [facility] DR: VERA TYPE: Surgical DEPT: S ORDERED: [...] microscopic examination confirms the diagnosis. CPT Codes 86091 Specimen: [id number] Received: 04/27/23 Status: MASSIEL Holloway Num: [id number] Spec Type: Surgical Subm Dr: Kike Bernal MD Tissues: A Colon Biopsy (RANDOM COLON) Procedures: EVELIA/Daljit Blanca/Vance L4 Patient: Milad Seymour [id number] (Continued) Signed (signature on file) Kaushal Magana MD 04/30/23 1325 Normal [facility] No Panel InformationOrdered By: Kike Bernal on 04-27-2023 Bedside Glucose Comment Glu2: cleaned meter [facility] Patient Educationon 02-13-20 23 Patient Education Oncology Prostate Cancer The prostate [...] to normal prostate cells (moderately differentiated). ? Bland 8, 9, or 10: This indicates that [...] external be (more content not included)... Normal [facility] Reminderson 02-12-2023 Reminders - From: Johana Reeves To: NOREEN Petersen; Sent: 02/12/2023 17:56:32 EDT Show up: 01/13/2024 17:56:00 EDT Subject: PSA prior to appt Reminder Message Please Remember to:_have pt get PSA done prior to appt in 1 year. Normal [facility] Urology Office/Clinic Noteon 02-12-2023 Urology Office/Clinic Note [...] Peterson Owens, URL [facility] [address] [place] [phone] Additional Instructions: 1 yr w/ PSA Patient Education Prostate Cancer IJohana, personally scribed for Dr. Petersen on 02/12/2023 10:14:09. . Documentation recorded by the scribeJohana, accurately reflects the services(s) I performed and [...] TID celecoxib, Oral fluticasone 0.05 mg/inh Nasal [place], Nasal, Daily Insulin Lispro KwikPen 100 units/mL [...] used for this result was chemiluminescence using [employer] Access Hybritech PSA reagent. PSA Total 0.5 ng/mL 11/28/2022 11:31 EDT The concentration of P (more content not included)... Normal [facility] Comment on above: Result Comment: Elec tronically [...] celecoxib fluticasone nasal (fluticasone 0.05 mg/inh Nasal [place]) lansoprazole lisinopril metformin metoprolol (metoprolol 25 mg ER Tab) simvastatin Procedures Performed Laparoscopic cholecystectomy (03/2021), Radiation (01/16/2020), Transrectal biopsy of prostate using ultrasound (US) guidance (09/23/2019), Transrectal biopsy of prostate using ultrasound (US) guidance (09/03/2018), Appendectomy, Colonoscopy, Tonsillectomy. What to do next Scheduled Follow-Up Appointments Sunday 9:15 AM EDT With: NICOLA RAYMUNDO, Peterson Owens Where: [facility] [place] Normal [facility] CHEMISTRYOrdered By: SYSTEM SYSTEM on 02-06-2023 Prostate specific Ag [Mass/Vol] 0.4 ng/mL Normal 0.1 - 3.5 ng/mL [facility] Remisol PSA Totalon 02-06-2023 Prostate specific Ag [Mass/Vol] 0.4 ng/mL Normal 0.1-3.5 [facility] Comment on above: Result Comment: The concentration of PSA determined by different manufacturers can vary due to differences in assay methods and reagent specificity. Values obtained from different assay methods cannot be used interchangeably. The methodology used for this result was chemiluminescence using [employer] Access Hybritech PSA reagent. Performed By: #### 1 [id number] #### [facility] [address] [place] [address] PSA Totalon 11-28-2022 Prostate specific Ag [Mass/Vol] 0.5 ng/mL Normal 0.1-3.5 [facility] Comment on above: Result Comment: The concentration of PSA determined by different manufacturers can vary due to differences in assay methods and reagent specificity. Values obtained from different assay methods cannot be used interchangeably. The methodology used for this result was chemiluminescence using [employer] Access Hybritech PSA reagent. Performed By: #### 1 [id number] #### [facility] [address] [place] [address] PANCREATIC ELASTASE FECALon 09-24-2022 Pancreatic Elastase, Fecal 467 ug Elast./g Normal >200 [facility] Comment on above: Result Comment: Nicolle re Pancreatic Insufficiency: <100 Moderate Pancreatic Insufficiency: 100 - 200 Normal: >200 Performed By: #### C PEPT #### [facility] [address] [place] [address] Dr. Stewart De La Cruz POTASSIUM, FECALon 3 Potassium, Stool 57 mmol/L Normal [facility] Comment on above: Result Comment: INTE RPRETIVE INFORMATION: Fecal Potassium A reference interval has not been established for fecal specimens. This test was developed and its performance characteristics determined by [employer]. It has not been cleared or approved by the [place] Food and Drug Administration. This test was performed in a CLIA certified laboratory and is intended for clinical purposes. Performed By: #### C PEPT #### [facility] [address] [place] [address] Dr. Stewart De La Cruz SODIUM, FECALon 09-17-2022 Sodium, Stool 65 mmol/L Normal [facility] Comment on above: Result Comment: INTE RPRETIVE INFORMATION: Fecal Sodium A reference interval has not been established for fecal specimens. This test was developed and its performance characteristics determined by [employer]. It has not been cleared or approved by the [place] Food and Drug Administration. This test was performed in a CLIA certified laboratory and is intended for clinical purposes. Performed By: #### F ECALN #### [facility] [address] [place] [address] Dr. Stewart De La Cruz CALPROTECTIN, FECALon 2022 Calprotectin, Fecal 43 ug/g Normal 0-120 [facility] Comment on above: Result Comment: Conc entration Interpretation Follow-Up <16 - 50 ug/g Normal None >50 -120 ug/g Borderline Re-evaluate in 4-6 weeks >120 ug/g Abnormal Repeat as clinically indicated Performed By: #### C PEPT #### [facility] [address] [place] [address] Dr. Stewart De La Cruz C-PEPTIDE, SERUMon C-Peptide, Serum 6.5 ng/mL Critically high 1.1-4.4 [facility] Comment on above: Result Comment: C-Pe ptide reference interval is for fasting patients. Performed By: #### C PEPT #### [facility] [address] [place] [address] Dr. Stewart De La Cruz HIV 1 AND 2 WITH REFLEXon HIV Screen 4th Generation wRfx Non-Reactive Normal Non Reactive [facility] Comment on above: Result Comment: HIV Negative HIV-1/HIV-2 antibodies and HIV-1 p24 antigen were NOT detected. There is no laboratory evidence of HIV infection. Performed By: #### C PEPT #### [facility] [address] [place] [address] Dr. Stewart De La Cruz INSULINon 09-13-2022 Insulin 13.9 uIU/mL Normal 2.6-24.9 [facility] Comment on above: Performed By: #### C PEPT #### [facility] [address] [place] [address] Dr. Stewart De La Cruz POTASSIUM, FECALon Potassium, Stool QNSMT Normal [facility] Comment on above: Result Comment: Test not performed. One specimen was submitted with requests for multiple tests. The requested testing requires a separate specimen for each test requested. contacted Keesha at your facility on 09-13-2022 Performed By: #### C PEPT #### [facility] [address] [place] [address] Dr. Stewart De La Cruz SODIUM, FECALon 09-13-2022 Sodium, Stool QNSMT Normal [facility] Comment on above: Result Comment: Test not performed. One specimen was submitted with requests for multiple tests. The requested testing requires a separate specimen for each test requested. contacted Keesha at your facility on 09-13-2022 Performed By: #### F ECALN #### [facility] [address] [place] [address] Dr. Stewart De La Cruz CBC AUTO DIFFon 09-12-2022 BASO # 0.1 103/ul Normal 0.0-0.1 [facility] Comment on above: Performed By: #### C PEPT #### [facility] [address] [place] [address] Dr. Stewart De La Cruz Basophils/100 WBC (Bld) 1.2 % Normal 0.2-2.0 [facility] Comment on above: Performed By: #### C PEPT #### [facility] [address] [place] [address] Dr. Stewart De La Cruz EO # 0.3 103/ul Normal 0.0-0.7 [facility] Comment on above: Performed By: #### C PEPT #### [facility] [address] [place] [address] Dr. Stewart De La Cruz Eosinophils/100 WBC (Bld) 4.5 % Normal 0.9-7.0 [facility] Comment on above: Performed By: #### C PEPT #### [facility] [address] [place] [address] Dr. Stewart De La Cruz Erythrocyte distribution width (RBC) [Ratio] 12.9 % Normal 11.0-15.0 [facility] Comment on above: Performed By: #### C PEPT #### [facility] [address] [place] [address] Dr. Stewart De La Cruz Hematocrit (Bld) [Volume fraction] 44.6 % Normal 42.0-54.0 [facility] Comment on above: Performed By: #### C PEPT #### [facility] [address] [place] [address] Dr. Stewart De La Cruz Hemoglobin (Bld) [Mass/Vol] 14.9 g/dL Normal 14.0-18.0 [facility] Comment on above: Performed By: #### C PEPT #### [facility] [address] [place] [address] Dr. Stewart De La Cruz IG # 0.03 10e3/ul Normal 0.00-0.03 [facility] Comment on above: Performed By: #### C PEPT #### [facility] [address] [place] [address] Dr. Stewart De La Cruz IG % 0.5 % Normal 0.0-0.5 [facility] Comment on above: Performed By: #### C PEPT #### [facility] [address] [place] [address] Dr. Stewart De La Cruz LYMPH # 1.1 103/ul Critically low 1.2-3.8 [facility] Comment on above: Performed By: #### C PEPT #### [facility] [address] [place] [address] Dr. Stewart De La Cruz Lymphocytes/100 WBC (Bld) 18.5 % Critically low 20.5-60.0 [facility] Comment on above: Performed By: #### C PEPT #### [facility] [address] [place] [address] Dr. Stewart De La Crzu MANUAL DIFF REQ NO Normal [facility] Comment on above: Performed By: #### C PEPT #### [facility] [address] [place] [address] Dr. Stewart De La Cruz MCH (RBC) [Entitic mass] 29.2 pg Normal 25.9-34.0 [facility] Comment on above: Performed By: #### C PEPT #### [facility] [address] [place] [address] Dr. Stewart De La Cruz MCHC (RBC) [Mass/Vol] 33.4 g/dL Normal 29.9-35.2 [facility] Comment on above: Performed By: #### C PEPT #### [facility] [address] [place] [address] Dr. Stewart De La Cruz MCV (RBC) [Entitic vol] 87.5 fL Normal 80.0-94.0 [facility] Comment on above: Performed By: #### C PEPT #### [facility] [address] [place] [address] Dr. Stewart De La Cruz MONO # 0.4 103/ul Normal 0.3-0.8 [facility] Comment on above: Performed By: #### C PEPT #### [facility] [address] [place] [address] Dr. Stewart De La Cruz Monocytes/100 WBC (Bld) 6.8 % Normal 1.7-12.0 [facility] Comment on above: Performed By: #### C PEPT #### [facility] [address] [place] [address] Dr. Stewart De La Cruz NEUT # 4.2 103/ul Normal 1.4-6.5 [facility] Comment on above: Performed By: #### C PEPT #### [facility] [address] [place] [address] Dr. Stewart De La Cruz Neutrophils/100 WBC (Bld) 68.5 % Normal 43.0-75.0 [facility] Comment on above: Performed By: #### C PEPT #### [facility] [address] [place] [address] Dr. Stewart De La Cruz Platelet mean volume (Bld) [Entitic vol] 9.8 fL Normal 9.5-13.5 [facility] Comment on above: Performed By: #### C PEPT #### [facility] [address] [place] [address] Dr. Stewart De La Cruz PLT 133 103/ul Critically low 150-450 [facility] Comment on above: Performed By: #### C PEPT #### [facility] [address] [place] [address] Dr. Stewart De La Cruz RBC 5.10 106/ul Normal 4.70-6.10 [facility] Comment on above: Performed By: #### C PEPT #### [facility] [address] [place] [address] Dr. Stewart De La Cruz WBC 6.1 103/ul Normal 4.0-11.0 [facility] Comment on above: Performed By: #### C PEPT #### [facility] [address] [place] [address] Dr. Stewart De La Cruz CRPon 09-12-2022 CRP [Mass/Vol] mg/L Normal <=1.0 [facility] Comment on above: Performed By: #### C RP #### [facility] [address] [place] [address] Dr. Stewart De La Cruz GLYCOHEMOGLOBIN A1Con 2022 ADA RECOMMENDATION SEE BELOW Normal [facility] Comment on above: Result Comment: ADA RECOMMENDED LIMIT 4.0 - 6.0 ADA THERAPEUTIC TARGET < 7.0 ACTION SUGGESTED > 7.0 Performed By: #### A 1C #### [facility] [address] [place] [address] Dr. Stewart De La Cruz Glucose [Mass/Vol] 278 mg/dL Normal [facility] Comment on above: Performed By: #### A 1C #### [facility] [address] [place] [address] Dr. Stewart De La Cruz HbA1c (Bld) [Mass fraction] 11.3 % Critically high 4.5-6.2 [facility] Comment on above: Performed By: #### A 1C #### [facility] [address] [place] [address] Dr. Stewart De La Cruz PROF CHEM 8 (BAS METB)on Anion gap [Moles/Vol] 16.9 mmol/L Normal [facility] Comment on above: Performed By: #### C PEPT #### [facility] [address] [place] [address] Dr. Stewart De La Cruz Calcium [Mass/Vol] 9.3 mg/dL Normal 8.5-10.1 [facility] Comment on above: Performed By: #### C PEPT #### [facility] [address] [place] [address] Dr. Stewart De La Cruz Chloride [Moles/Vol] 103 mmol/L Normal 98-107 [facility] Comment on above: Performed By: #### C PEPT #### [facility] [address] [place] [address] Dr. Stewart De La Cruz CO2 [Moles/Vol] 26.0 mmol/L Normal 21.0-32.0 [facility] Comment on above: Performed By: #### C PEPT #### [facility] [address] [place] [address] Dr. Stewart De La Cruz Creatinine [Mass/Vol] 1.43 mg/dL Critically high 0.70-1.30 [facility] Comment on above: Performed By: #### C PEPT #### [facility] [address] [place] [address] Dr. Stewatr De La Cruz EGFR-AF CENTRAL AFRICAN 60 mL/min/1.73m2 Normal >=60 Th [facility] Comment on above: Performed By: #### C PEPT #### [facility] [address] [place] [address] Dr. Stewart De La Cruz EGFR-NON AF CENTRAL AFRICAN 49 mL/min/1.73m2 Critically low >=60 [facility] Comment on above: Performed By: #### C PEPT #### [facility] [address] [address] [address] Stewart De La Cruz Glucose [Mass/Vol] 293 mg/dL Critically high 74-106 T [facility] [place] [facility] Comment on above: Performed By: #### C PEPT #### [facility] [address] [address] [address] Stewart De La Cruz Potassium [Moles/Vol] 4.9 mmol/L Normal 3.5-5.1 [facility] Comment on above: Performed By: #### C PEPT #### [facility] [address] [address] [address] Stewart De La Cruz Sodium [Moles/Vol] 141 mmol/L Normal 136-145 [facility] Comment on above: Performed By: #### C PEPT #### [facility] [address] [address] [address] Stewart De La Cruz Urea nitrogen [Mass/Vol] 32.0 mg/dL Critically high 7.0-18.0 [facility] Comment on above: Performed By: #### C PEPT #### [facility] [address] [address] [address] Stewart De La Cruz Urea nitrogen/Creatinine [Mass ratio] 22.4 mg/mg Normal [facility] Comment on above: Performed By: #### C PEPT #### [facility] [address] [address] [address] Stewart De La Cruz SED RATE [facility] 2022 SED RATE 17 mm/hr Normal <=20 [facility] Comment on above: Performed By: #### S EDR #### [facility] [address] [place] [address] Dr. Stewart De La Cruz RAD EGD - documentation only do not orderon 07-25-2022 RAD EGD - documentation only do not order [facility] Other Glucose Glucometer (BldC) [M ass/Vol]Ordered By: Kike Bernal on 07-24-2022 Glucose [Mass/Vol] 275 mg/dL [facility] Comment on above: Random Glucose Refer ence Range is dependent on time and content of last meal. Glucose of more than 200 mg/dL in a nonstressed, ambulatory subject supports the diagnosis of Diabetes Mellitus. GLYCOHEMOGLOBIN A1Con 2021 ADA RECOMMENDATION SEE BELOW Normal [facility] Comment on above: Result Comment: ADA RECOMMENDED LIMIT 4.0 - 6.0 ADA THERAPEUTIC TARGET < 7.0 ACTION SUGGESTED > 7.0 Performed By: #### A 1C #### [facility] [address] [address] [address] Stewart De La Cruz Glucose [Mass/Vol] 235 mg/dL Normal [facility] Comment on above: Performed By: #### A 1C #### [facility] [address] [address] [address] Stewart De La Cruz HbA1c (Bld) [Mass fraction] 9.8 % Critically high 4.5-6.2 [facility] Comment on above: Performed By: #### A 1C #### [facility] [address] [address] [address] Stewart De La Cruz GLYCOHEMOGLOBIN A1Con 2021 ADA RECOMMENDATION SEE BELOW Normal [facility] Comment on above: Result Comment: ADA RECOMMENDED LIMIT 4.0 - 6.0 ADA THERAPEUTIC TARGET < 7.0 ACTION SUGGESTED > 7.0 Performed By: #### A 1C #### [facility] [address] [address] [address] Stewart De La Cruz Glucose [Mass/Vol] 197 mg/dL Normal [facility] Comment on above: Performed By: #### A 1C #### [facility] [address] [address] [address] Stewart De La Cruz HbA1c (Bld) [Mass fraction] 8.5 % Critically high 4.5-6.2 [facility] Comment on above: Performed By: #### A 1C #### [facility] [address] [place] [address] Dr. Stewart De La Cruz PSA, FREE AND TOTAL RATIOon 01-28-2022 % Free PSA 30.0 % Normal [facility] Comment on above: Result Comment: The [...] men. Performed By: #### P SAFREE #### [facility] [address] [place] [address] Dr. Stewart De La Cruz Prostate specific Ag [Mass/Vol] 0.1 ng/mL Normal 0.0-4.0 [facility] Comment on above: Result Comment: Nina de luna ECLIA methodology. . According to the [place] [employer], Serum PSA should decrease and [...] disease. Performed By: #### P SAFREE #### [facility] [address] [place] [address] Dr. Stewart De La Cruz PSA, Free 0.03 ng/mL Normal N/A [facility] Comment on above: Result Comment: Roch e ECLIA methodology. Performed By: #### P SAFREE #### [facility] [address] [place] [address] Dr. Stewart De La Cruz GLYCOHEMOGLOBIN A1Con 2021 ADA RECOMMENDATION SEE BELOW Normal [facility] Comment on above: Result Comment: ADA RECOMMENDED LIMIT 4.0 - 6.0 ADA THERAPEUTIC TARGET < 7.0 ACTION SUGGESTED > 7.0 Performed By: #### A 1C #### [facility] [address] [place] [address] Dr. Stewart De La Cruz Glucose [Mass/Vol] 192 mg/dL Normal [facility] Comment on above: Performed By: #### A 1C #### [facility] [address] [place], [place] [address] Dr. Stewart De La Cruz HbA1c (Bld) [Mass fraction] 8.3 % Critically high 4.5-6.2 [facility] Comment on above: Performed By: #### A 1C #### [facility] [address] [place], [place] [address] Dr. Stewart De La Cruz CNOVon 02-01-2021 CNOV Office Visit (RADTSA ) -- LIONMILAD Dalal ([id number]) 1955 M Date Time Provider Department 02/01/21 [...] ASSESSMENT/PLAN:DIAGNOSIS: Prostate adenocarcinoma, initial PSA 14.65, biopsy Bland score 3 + 3 = 6 (grade [...] Fawad Diaz MD cc: Dank Campo MD ([facility]) [address] [place] [address] Dr. Petersen Portions of the above note extracted and edited from previous visit as well as active information included in the EMR. Referring Provider: Fawad DIAZ [[id number]] Allergies As of Date: 02/01/2021 (No Known Allergies) Date Reviewed: 02/01/2021 Reviewed by: Tila Herrera LPN - Fully Assessed Reason for Visit: Prostate Cancer [590] Primary Visit Diagnosis:Malignant neoplasm of prostate (HCC) [C61] Order(s):PSA/PROSTSPECAG DIAG [SQPSA] Order #: [id number] FUTURE Prescriptions as of 02/03/2021 - aspirin, [...] magnesium) t (more content not included)... Normal [facility] PSA, Diagnosticon 01-25-2021 PSA, Diagnostic 0.29 ng/mL Normal 0.00-2.59 [facility] Comment on above: Result Comment: Sandra manzo PSA test methodology used is the Electrochemiluminescence Immunoassay. Performed By: #### P SA #### [facility] [place] [facility] [address] [place], [place] [address] OBSOLETEon 12-22-2020 OBSOLETE Refill (RADTSA) -- MILAD SEYMOUR ([id number]) 1955 M Date Time Provider Department 12/22/20 [...] by TILA HERRERA on 01/04/21 [facility] CNOVon 11-03-2020 CNOV Office Visit (RADTSA ) -- MILAD SEYMOUR ([id number]) 1955 M Date Time Provider Department 11/03/20 4:00 PM LAB/PORT RADDamaris COCHRAN During your visit today, we recorded the following information about you: Referring Provider: Fawad DIAZ [[id number]] Allergies As of Date: 11/03/2020 (No Known [...] Status:Closed by TILA HERRERA on 11/03/20 Normal [facility] Office Visit (NILDAA ) -- LIONMILAD Dalal ([id number]) 1955 M Date Time Provider Department 11/03/20 [...] DIAGNOSIS: Prostate adenocarcinoma, initial PSA 14.65, biopsy Bland score 3 + 3 = 6 (grade [...] Fawad Diaz MD cc: Dank Campo MD ([facility]) [address] [place] [address] Dr. Petersen Referring Provider: Fawad DIAZ [[id number]] Allergies As of Date: 11/03/2020 (No Known Allergies) Date Reviewed: 11/03/2020 Reviewed by: Fawad Diaz MD - Fully Assessed Reason for Visit: Prostate Cancer [590] Primary Visit Diagnosis:Malignant neoplasm of prostate (HCC) [C61] Order(s):PSA/PROSTSPECAG DIAG [SQPSA] Order #: [id number] FUTURE Prescriptions as of 11/03/2020 Sig: TAMSULOSIN [...] 30 mg (more content not included)... Normal [facility] PSA, Diagnosticon 11-01-2020 PSA, Diagnostic 0.27 ng/mL Normal 0.00-2.59 [facility] Comment on above: Result Comment: Sandra manzo PSA test methodology used is the Electrochemiluminescence Immunoassay. Performed By: #### P SA #### [place] [address] [facility] Telephone (RADTSA) -- MILAD SEYMOUR ([id number]) 1955 M Date Time Provider Department 10/29/20 [...] since completing radiation therapy. Call transferred to [facility] to move up appointment. Dr. Diaz, 07/27/20 [...] (HCC) [C61] Order(s):PSA/PROSTSPECAG DIAG [SQPSA] Order #: [id number] FUTURE Prescriptions as of 10/29/2020 Sig: TAMSULOSIN [...] Status:Closed by TILA HERRERA on 10/29/20 Normal [facility] CNPHolly 10-08-2020 [facility] Telephone (MALORIE) -- MILAD SEYMOUR ([id number]) 1955 M Date Time Provider Department 10/08/20 MICHAELJODI HEATHERRA ESPANA During your visit today, we recorded the following information about you: Allergies As of Date: 10/08/2020 (No Known Allergies) Date Reviewed: 07/14/2020 Reviewed by: Joann Richardson - Fully Assessed Reason for Visit: Lab Orders [1688] Primary Visit Diagnosis:Iron deficiency anemia due to chronic blood loss [D50.0] Order(s):CBC + DIFF (FOR REMOTE [facility] USE) [SQRCBCDF] Order #: [id number] FUTURE COMP METABOLIC PANEL [SQCMP] Order #: [id number] FUTURE Prescriptions as of 10/08/2020 Sig: TAMSULOSIN [...] by TASHA GOOD on 10/14/20 [facility] OBSOLETEon 09-20-2020 OBSOLETE Refill (RADTSA) -- MILAD SEYMOUR ([id number]) 1955 M Date Time Provider Department 09/20/20 [...] Status:Closed by TILA HERRERA on 10/14/20 Normal [facility] Vital Signs Date Time Vital Sign Value Performing Clinician Facility 08-15-2023 13:35-0500 Diastolic blood pressure 60 mm[Hg] Gregoria Ralph BILLPOSTING SUPERVISOR-DISTRICT MANAGER Work Phone: [facility] 08-15-2023 13:35-0500 Systolic blood pressure 107 mm[Hg] Gregoriamyah [employer] BILLPOSTING SUPERVISOR-DISTRICT MANAGER Work Phone: [facility] 08-15-2023 13:33-0500 Body height 175.3 cm GregoriaBasketball [place] BILLPOSTING SUPERVISOR-DISTRICT MANAGER Work Phone: [facility] 08-15-2023 13:33-0500 Body mass index (BMI) [Ratio] 36.77 kg/m2 [employer] BILLPOSTING SUPERVISOR-DISTRICT MANAGER Work Phone: [facility] 08-15-2023 13:33-0500 Body weight 112.95 kg [employer] BILLPOSTING SUPERVISOR-DISTRICT MANAGER Work Phone: [facility] 08-15-2023 13:33-0500 Heart rate 81 /min [employer]-DISTRICT MANAGER Work Phone: [facility] 08-15-2023 13:33-0500 SaO2% (BldA) [Mass fraction] 95 % [employer] BILLPOSTING SUPERVISOR-DISTRICT MANAGER Work Phone: [facility] 07-30-2023 11:16-0500 Body height 177.8 cm Ashli Ascencioick DO Work Phone: [facility] [employer] 07-30-2023 11:16-0500 Body mass index (BMI) [Ratio] 36.16 kg/m2 Ashli Petznick [employer] Work Phone: [facility] [employer] 07-30-2023 11:16-0500 Body temperature 98.01 [degF] Ashli Petznick [employer] Work Phone: [facility] [employer] 07-30-2023 11:16-0500 Body weight 114.31 kg Ashli Petznick DO Work Phone: [facility] 07-30-2023 11:16-0500 Diastolic blood pressure 62 mm[Hg] Ashli Petznick DO Work Phone: [facility] 07-30-2023 11:16-0500 Heart rate 66 /min Ashli Petznick DO Work Phone: [facility] 07-30-2023 11:16-0500 SaO2% (BldA) [Mass fraction] 97 % Ashli Petznick DO Work Phone: [facility] 07-30-2023 11:16-0500 Systolic blood pressure 116 mm[Hg] Ashli Petznick DO Work Phone: [facility] 07-17-2023 09:22-0500 Diastolic blood pressure 73 mm[Hg] MD Dank Campo Work Phone: [facility] 07-17-2023 09:22-0500 Heart rate 70 /min MD Dank Campo Work Phone: [facility] 07-17-2023 09:22-0500 Respiratory rate 18 /min MD Dank Campo Work Phone: [facility] 07-17-2023 09:22-0500 SaO2% (BldA) [Mass fraction] 97 % MD Dank Campo Work Phone: [facility] 07-17-2023 09:22-0500 Systolic blood pressure 173 mm[Hg] MD Dank Campo Work Phone: [facility] 07-17-2023 09:20-0500 Body height 177.8 cm MD Dank Campo Work Phone: [facility] 07-17-2023 09:20-0500 Body weight 111.13 kg MD Dank Campo Work Phone: [facility] 04-27-2023 12:40-0500 Diastolic blood pressure 68 mm[Hg] MD Dank Campo Work Phone: [facility] 04-27-2023 12:40-0500 Heart rate 75 /min MD Dank Campo Work Phone: [facility] 04-27-2023 12:40-0500 Respiratory rate 16 /min MD Dank Campo Work Phone: [facility] 04-27-2023 12:40-0500 SaO2% (BldA) [Mass fraction] 97 % MD Dank Campo Work Phone: [facility] 04-27-2023 12:40-0500 Systolic blood pressure 110 mm[Hg] MD Dank Campo Work Phone: [facility] 04-27-2023 10:29-0500 Body height 177.8 cm MD Dank Campo Work Phone: [facility] 04-27-2023 10:29-0500 Body weight 113.39 kg MD Dank Campo Work Phone: [facility] 04-10-2023 14:00-0400 Body height 177.8 cm Imad Asaad Other [employer] Other 04-10-2023 14:00-0400 Body mass index (BMI) [Ratio] 36.3 kg/m2 Imad Asaad Other [facility] Other 04-10-2023 14:00-0400 Body weight 114.76 kg Imad Asaad Other [facility] Other 04-10-2023 14:00-0400 Diastolic blood pressure 68 mm[Hg] Imad Asaad Other [facility] Other 04-10-2023 14:00-0400 Systolic blood pressure 113 mm[Hg] Imad Asaad Other [facility] Other 02-12-2023 09:46-0400 Blood Pressure Location Peterson PETERSEN [facility] 02-12-2023 09:46-0400 Diastolic blood pressure 90 mm[Hg] Peterson PETERSEN [facility] 02-12-2023 09:46-0400 Heart rate 68 /min Peterson PETERSEN [facility] 02-12-2023 09:46-0400 Respiratory rate 16 /min Peterson PETERSEN [facility] 02-12-2023 09:46-0400 Systolic blood pressure 138 mm[Hg] Peterson PETERSEN [facility] 07-24-2022 13:52-0500 Diastolic blood pressure 78 mm[Hg] MD Dank Campo Work Phone: [facility] 07-24-2022 13:52-0500 Heart rate 71 /min MD Dank Campo Work Phone: [facility] 07-24-2022 13:52-0500 Respiratory rate 16 /min MD Dank Campo Work Phone: [facility] 07-24-2022 13:52-0500 SaO2% (BldA) [Mass fraction] 96 % MD Dank Campo Work Phone: [facility] 07-24-2022 13:52-0500 Systolic blood pressure 136 mm[Hg] MD Dank Campo Work Phone: [facility] 07-24-2022 12:29-0500 Body height 177.8 cm MD Dank Campo Work Phone: [facility] 07-24-2022 12:29-0500 Body temperature 98 [degF] MD Dank Campo Work Phone: [facility] 07-24-2022 12:29-0500 Body weight 115.66 kg MD Dank Campo Work Phone: [facility] 07-20-2022 10:00-0500 Body height 177.8 cm Imad Asaad Other [facility] Other 07-20-2022 10:00-0500 Body mass index (BMI) [Ratio] 36.73 kg/m2 Imad Asaad Other [facility] Other 07-20-2022 10:00-0500 Body weight 116.12 kg Imad Asaad Other [facility] Other 07-20-2022 10:00-0500 Diastolic blood pressure 96 mm[Hg] Imad Asaad Other [facility] Other 07-20-2022 10:00-0500 Systolic blood pressure 170 mm[Hg] Imad Asaad Other [facility] Other 02-03-2022 08:29-0400 Blood Pressure Location Peterson PETERSEN [facility] 02-03-2022 08:29-0400 Diastolic blood pressure 88 mm[Hg] Peterson PETERSEN [facility] 02-03-2022 08:29-0400 Heart rate 75 /min Peterson PETERSEN [facility] 02-03-2022 08:29-0400 Respiratory rate 16 /min Peterson [facility] 02-03-2022 08:29-0400 Systolic blood pressure 138 mm[Hg] Peterson PETERSEN [facility] Encounters Encounter Date Encounter Type Care Provider Facility Start: 02-04-2024 ambulatory Peterson Graciela NICOLA Sylvesteri ty: [facility] Start: 10-31-2023 End: 10-31-2023 ambulatory DEXTER KRISHNAMURTHY Not Available Start: 10-30-2023 End: 10-30-2023 ambulatory Dank Campo Facility:[facility] Start: 10-30-2023 End: 10-30-2023 ambulatory ASHLI ROSS Not Available Start: 10-17-2023 End: 10-17-2023 ambulatory DEXTER KRISHNAMURTHY Not Available Start: 10-15-2023 End: 10-16-2023 ambulatory Roma Lopez MD Facility: [facility] Start: 10-11-2023 End: 10-11-2023 ambulatory DANK CAMPO Not Available Start: 10-09-2023 End: 10-09-2023 ambulatory JYOTI ROTH Not Available Start: 10-01-2023 End: 10-02-2023 ambulatory Roma Lopez MD Facility: [facility] Start: 09-27-2023 End: 09-27-2023 ambulatory DEXTER KRISHNAMURTHY Not Available Start: 09-05-2023 End: 09-05-2023 ambulatory DEXTER A SUKHWINDERHER Not Available Start: 08-29-2023 End: 08-29-2023 ambulatory DANK CAMPO Not Available Start: 08-27-2023 Telephone encounter [facility] Start: 08-23-2023 End: 08-24-2023 ambulatory GREGORIA kenny Start: 08-22-2023 End: 08-22-2023 ambulatory Imad Asaad Facility:[facility] Start: 08-20-2023 End: 08-20-2023 ambulatory Dank Campo Facility:[facility] Start: 08-17-2023 Telephone encounter Gregoria Corrie Alayna shields BILLPOSTING SUPERVISOR-DISTRICT MANAGER Work Phone: [facility] Comment on above: Sleep Lab (CPAP) Start: 08-15-2023 End: 08-15-2023 ambulatory [facility] Start: 08-15-2023 End: 08-15-2023 Office outpatient visit 25 minutes Gregoria Corrie Loree BILLPOSTING SUPERVISOR-DISTRICT MANAGER Work Phone: [facility] Comment on above: Personal history of tobacco use, presenting hazards to health (Primary Dx); Obstructive sleep apnea syndrome; CSA (central sleep apnea) Start: 08-09-2023 End: 08-09-2023 ambulatory Dank Campo Facility:[facility] Start: 08-09-2023 End: 08-09-2023 ambulatory MD Dank Campo Work Phone: [facility] Work Phone: Start: 08-09-2023 End: 08-09-2023 Patient encounter procedure MD Dank Campo Work Phone: [facility] Work Phone: Start: 08-02-2023 Telephone encounter Aliza whaley [facility] Start: 08-01-2023 Chart abstracting [...] (BMI) of 36.0 to 36.9 in adult ([facility]) (Primary Dx); Type 2 diabetes mellitus with diabetic polyneuropathy, with long-term current use of insulin ([facility]) Start: 07-24-2023 End: 07-24-2023 ambulatory Dank Campo Facility:[facility] Start: 07-24-2023 End: 07-24-2023 Patient encounter procedure MD Dank Campo Work Phone: [facility] [place] Work Phone: Start: 07-17-2023 End: 07-17-2023 ambulatory Dank Campo Facility:[facility] Start: 07-17-2023 End: 07-17-2023 ambulatory MD Dank Campo Work Phone: [facility] [facility] Work Phone: Start: 07-17-2023 End: 07-17-2023 Patient encounter procedure MD Dank Campo Work Phone: [facility] [place] Work Phone: Start: 06-26-2023 End: 06-26-2023 ambulatory MD Dank Campo Work Phone: [facility] Work Phone: Start: 06-26-2023 End: 06-26-2023 Patient encounter procedure MD Dank Campo Work Phone: [facility] [address] Work Phone: Start: 06-07-2023 [...] Start: 04-27-2023 End: 04-27-2023 ambulatory Dank Campo Facility:[facility] Start: 04-27-2023 End: 04-27-2023 Admission to same day surgery center MD Dank Campo Work Phone: [facility] Work Phone: Start: 04-27-2023 End: 04-27-2023 ambulatory MD Dank Campo Work Phone: [facility] Work Phone: Start: 04-10-2023 End: 04-10-2023 ambulatory Imad Asaad Other [facility] Other Start: 04-10-2023 Office outpatient ne w 45 minutes Imad Asaad [facility] Start: 03-20-2023 End: 03-20-2023 ambulatory Imad Asaad Other [facility] Other Start: 03-20-2023 Telephone encounter Imad Asaad [facility] Start: 02-12-2023 End: 02-13-2023 ambulatory Peterson PETERSEN Facility:[facility] Start: 02-12-2023 End: 02-12-2023 Patient encounter procedure Peterson PETERSEN [facility] Start: 02-06-2023 End: 02-07-2023 ambulatory ROSALVA MURO Facility:[facility] Start: 02-06-2023 End: 02-06-2023 Lab Drop off ROSALVA MURO [facility] Start: 02-06-2023 End: 02-06-2023 Patient encounter procedure DEJUAN PETERSEN [facility] Start: 12-26-2022 End: 12-27-2022 ambulatory ROSALVA MURO Facility:[facility] Start: 11-28-2022 End: 11-29-2022 ambulatory ROSALVA MURO Facility:[facility] Start: 10-17-2022 End: 10-18-[address] DANK CAMPO Facility:[facility] Start: 09-20-2022 End: 09-20-2022 ambulatory Imad Asaad Other [facility] Other Start: 09-20-2022 Telephone encounter Imad Asaad [facility] Start: 09-14-2022 End: 09-14-[address] DANK CAMPO Facility:[facility] Start: 09-12-2022 End: 09-13-[address] DANK CMAPO Facility:[facility] Start: 07-24-2022 Telephone encounter Imad Asaad [facility] Start: 07-24-2022 End: 07-24-2022 Admission to same day surgery center MD Dank Campo Work Phone: [facility] Work Phone: Start: 07-24-2022 End: 07-24-2022 ambulatory MD Dank Campo Work Phone: [facility] Work Phone: Start: 07-20-2022 End: 07-20-2022 ambulatory Imad Asaad Other [facility] Other Start: 07-20-2022 Patient encounter procedure Imad Asaad [facility] Start: 05-10-2022 End: 05-11-[address] DANK CAMPO Facility:[facility] Start: 04-14-2022 End: 04-15-[address] SORIN SHORE Facility:[facility] Start: 02-03-2022 End: 02-03-2022 Patient encounter procedure Peterson PETERSEN [facility] Start: 01-30-2022 End: 01-31-2022 ambulatory MR REBECCA KING . Facility:[facility] Start: 01-27-2022 End: 01-28-[address] PETESRON PETERSEN . Facility:[facility] Procedures Date Procedure Procedure Detail Performing Clinician Start: 07-30-2023 Hemoglobin glycosylated a1c Ashli green DO Work Phone: Start: 07-24-2023 CT of left shoulder with contrast MD Reina Campo Work Phone: Start: 04-27-2023 End: 04-27-2023 Colonoscopy MD Dank Campo Work Phone: Start: 07-24-2022 Esophagogastroduodenoscopy MD Dank caballero Work Phone: Start: 03-18-2021 Laparoscopic cholecystectomy Peterson GOODE Start: 01-16-2020 Radiation (physical force) Peterson RIOS S Comment on above: 12/08/2019 - [...] 04-27-2033 Screening for malignant neoplasm of colon [facility] Start: 01-20-2031 DTaP,Tdap and Td Vaccines (3 - Td or Tdap) DTaP,Tdap and Td Vaccines (3 - Td or Tdap) [facility] Start: 08-15-2024 Adult BMI Screening Adult BMI Screening [facility] Start: 08-15-2024 Tobacco Screening Tobacco Screening [facility] Start: 02-25-2024 End: 02-25-2024 Patient encounter procedure 02/25/2024 10:30 AM EDT Office Visit [facility] [address] [place] [address] Hanna Laguerre MD [address] [facility] [place] [address] [facility] Start: 11-19-2023 End: 11-19-2023 Clinical Support 11/19/2023 8:00 PM EDT Clinical Support [facility] [address] [place] [address] [facility] Start: 10-29-2023 End: 10-29-2023 Patient encounter procedure 10/29/2023 1:15 PM EDT Office Visit [facility] [address] [place] [phone] Ashli Ross, [address] [place] [address] [facility] Start: 10-28-2023 Hemoglobin A1c measurement Diabetes: Hemoglobin A1C [facility] Start: 08-29-2023 End: 08-29-2023 Patient encounter procedure 08/29/2023 7:45 AM EDT Office Visit [facility] [address] [place] [address] Dank Campo MD [address] [place] [address] [facility] Start: 08-23-2023 End: 08-23-2023 Patient encounter procedure [facility] Start: 08-15-2023 End: 08-15-2024 CT Chest for screening WO contrast CT low dose lung screenin (3mo 6mo follow-up) Imaging Routine Personal history of tobacco use, presenting hazards to health Expected: 08/15/2023, Expires: 08/15/2024 [employer] Work Phone: Comment on above: Expected: 08/15/2023, Expires: Start: 08-15-2023 End: 08-15-2024 Echo complete W/O contrast Echo complete W/O contrast Echocardiography Routine Obstructive sleep apnea syndrome CSA (central sleep apnea) Expected: 08/15/2023, Expires: 08[facility]15[facility]: Expected: 08/15/2023, Expires: Start: 08-09-2023 End: 08-09-2023 Patient encounter procedure 08/09/2023 8:30 AM EST Office Visit [facility] [address] [place] [phone] Dexter Krishnamurthy, [place] [address] [place] [address] [facility] Start: 08-01-2023 End: 08-01-2023 Patient encounter procedure 08/01/2023 10:30 AM EST Office Visit [facility] [address] [place] [phone] Jr. Johanne Hdez, DO [address] [address] [facility] Start: 04-27-[address] [facility] Start: 04-11-2023 Administration of varicella zoster vaccine Zoster (Shingles) Vaccine (3 of 3) [facility] Start: 02-16-2023 COVID-19 Vaccine ( season) COVID-19 Vaccine ( season) [facility] Start: 02-16-2023 COVID-19 Vaccine ( season) COVID-19 Vaccine ( season) [facility] Start: 02-16-2023 Influenza vaccination Influenza Vaccine [facility] Start: 07-24-[address] [facility] Start: 04-15-2022 Adult BMI Screening Adult BMI Screening [facility] Start: 09-15-2020 Fall Risk Screening Fall Risk Screening [facility] Start: 09-15-1974 Urine screening for protein Diabetes: Urine Protein Screening [facility] Start: 09-15-1973 Adult BMI Follow Up Plan Adult BMI Follow Up Plan [facility] Start: 1967 Depression Screening Depression Screening [facility] Start: 1967 Tobacco Screening Tobacco Screening [facility] Start: 09-15-1965 Glaucoma screening Diabetes: Retinopathy Screening [facility] Start: 1955 Medicare Annual Wellness (AWV) Medicare Annual Wellness (AWV) [facility] Start: 1955 Screening for malignant neoplasm of colon [facility] Patient Education [facility] Work Phone: End: 08-15-2024 Polysomnography 4 or more parameters with PAP titration Polysomnography 4 or more parameters with PAP titration Sleep Center Routine Obstructive sleep apnea syndrome CSA (central sleep apnea) 1 Occurrences starting 08/15/2023 until 08/15/2024 [facility] Comment on above: 1 Occurrences starting 08/15/2023 until 08/15/2024 Immunizations Immunization Date Immunization Notes Care Provider Kiera howard 04-22-2023 zoster vaccine recombinant Ashli Petznick DO Work Phone: [facility] 03-23-2023 RSV, recombinant, protein subunit RSVpreF, adjuvant reconstitu, 120mcg/0.5mL, PF (Arexvy) Ashli Petznick DO Work Phone: [facility] 02-14-2023 Influenza, Seasonal, Quadrivalent, Adjuvanted Ashli Petznick DO Work Phone: [facility] 02-14-2023 zoster vaccine recombinant Ashli Petznick DO Work Phone: [facility] 02-14-2023 influenza virus vaccine, unspecified formulation Aliza Lafountain [facility] 02-14-2023 zoster vaccine, unspecified formulation Aliza Lafountain [facility] 04-09-2022 COVID-19 mRNA Bivale nt Booster (Pfizer) MD Dank Campo Work Phone: [facility] 04-09-2022 Influenza, Seasonal, Quadrivalent, Adjuvanted Ashli Petznick DO Work Phone: [facility] 04-13-2021 COVID-19 mRNAAlfred (Pfizer) MD Dank Campo Work Phone: [facility] 02-22-2021 Influenza, Seasonal, Quadrivalent, Adjuvanted Ashli Petznick DO Work Phone: [facility] 02-22-2021 pneumococcal polysaccharide vaccine, 23 valent Ashli Petznick DO Work Phone: [facility] 01-20-2021 tetanus and diphther ia toxoids, adsorbed, preservative free, for adult use (5 Lf of tetanus toxoid and 2 Lf of diphtheria toxoid) Imad Asaad Other [place] [employer] Other 01-17-2021 influenza, seasonal, injectable Ashli Petznick DO Work Phone: [facility] 01-17-2021 Moderna SARS-CoV-2 Vaccination Ashli Petznick DO Work Phone: [facility] 10-16-2020 SARS-CoV-2 (COVID-19 ) mRNA BNT-162b2 kirill Kenyonrick NICOLA [facility] 10-01-2020 COVID-19 mRNAAlfred (Pfizer) MD Dank Campo Work Phone: [facility] 09-08-2020 COVID-19 Alfred Hightower (Pfizer) MD Dank Campo Work Phone: [facility] 02-17-2020 influenza, injectabl e, quadrivalent, preservative free Ashli Petznick DO Work Phone: [facility] 02-09-2020 influenza, high dose seasonal, preservative-free Ashli Petznick DO Work Phone: [facility] 03-15-2019 influenza, injectabl e, quadrivalent, preservative free Ashli Petznick DO Work Phone: [facility] 02-25-2018 influenza, injectabl e, quadrivalent, preservative free Ashli Petznick DO Work Phone: [facility] 05-30-2017 pneumococcal conjuga te vaccine, 13 valent Ashli Petznick DO Work Phone: [facility] 05-30-2017 pneumococcal polysaccharide vaccine, 23 valent Ashli Petznick DO Work Phone: [facility] 03-02-2017 influenza nasal, unspecified formulation Ashli Petznick DO Work Phone: [facility] 03-02-2017 influenza virus vaccine, unspecified formulation [facility] 03-02-2017 influenza, injectabl e, quadrivalent, preservative free Ashli Petznick DO Work Phone: [facility] 03-05-2016 influenza, injectabl e, quadrivalent, preservative free Ashli Petznick DO Work Phone: [facility] 03-05-2016 influenza, seasonal, injectable Ashli Petznick DO Work Phone: [facility] 02-18-2015 zoster vaccine, live Ashli Petznick DO Work Phone: [facility] 02-01-2015 influenza, seasonal, injectable Ashli Petznick DO Work Phone: [facility] 08-18-2014 tetanus toxoid, redu inocencio diphtheria toxoid, and acellular pertussis vaccine, adsorbed Ashli Petznick DO Work Phone: [facility] 08-04-2013 pneumococcal conjuga te vaccine, 13 valent Ashli Petznick DO Work Phone: [facility] Payers Date Payer Category Payer Self-pay [id number] 2023 Unknown [id number] 2020 Medicare [id number] [id number] 2013 Unknown [id number]. 1.13.424.2.7.3.678 671.315 1959 Medicare [id number] 1955 Unknown [id number] 2.16.840.1.586729.3.579.2.593 1955 Unknown [id number] 2.16.840.1.981528.3.579.2.593 1955 Unknown [id number] 2.16.840.1.357301.3.579.2.593 1955 Unknown [id number] 2.16.840.1.313025.3.579.2.593 1955 Unknown [id number] 2.16.840.1.669338.3.579.2.593 1955 Unknown [id number] 2.16.840.1.665624.3.579.2.593 1955 Unknown [id number] 2.16.840.1.183849.3.579.2.593 1955 Unknown [id number] 2.16.840.1.365270.3.579.2.593 1955 Unknown [id number] 2.16.840.1.426033.3.579.2.1286 1955 Unknown [id number] 2.16.840.1.969782.3.579.2.1286 1955 Unknown [id number] 2.16.840.1.552594.3.579.2.1286 1955 Unknown [id number] 2.16.840.1.568479.3.579.2.727 1955 Unknown [id number] 2.16.840.1.642480.3.579.2.727 1955 Unknown [id number] 2.16.840.1.139156.3.579.2.727 1955 Unknown [id number] 2.16.840.1.930689.3.579.2.72 1955 Unknown [id number] 2.16.840.1.365875.3.579.2.72 1955 Unknown [id number] 2.16.840.1.880475.3.579.2. 1955 Unknown [id number] 2.16.840.1.077040.3.579.2.72 1955 Unknown [id number] 2.16.840.1.247907.3.579.2.196 1955 Unknown [id number] 2.16.840.1.901266.3.579.2.196 1955 Unknown [id number] 2.16.840.1.190258.3.579.2.9 1955 Unknown [id number] 2.16.840.1.321991.3.579.2.1259 1955 Unknown [id number] 2.16.840.1.830962.3.579.2.125 1955 Unknown [id number] 2.16.840.1.119210.3.579.2.125 1955 Unknown [id number] 2.16.840.1.062143.3.579.2.1258 1955 Unknown [id number] 2.16.840.1.971780.3.579.2.1259 1955 Unknown [id number] 2.16.840.1.659317.3.579.2.1259 1955 Unknown [id number] 2.16.840.1.355245.3.579.2.1258 1955 Unknown [id number] 2.16.840.1.718934.3.579.2.1258 1955 Unknown [id number] 2.16.840.1.699413.3.579.2.1258 1955 Unknown [id number] 2.16.840.1.280410.3.579.2.1258 1955 Unknown [id number] 2.16.840.1.553246.3.579.2.1258 1955 Unknown [id number] 2.16.840.1.380922.3.579.2.1258 1955 Unknown [id number] 2.16.840.1.223782.3.579.2.1258 1955 Unknown [id number] 2.16.840.1.636335.3.579.2.1258 1955 Unknown [id number] 2.16.840.1.048127.3.579.2.1258 1955 Unknown [id number] 2.16.840.1.094459.3.579.2.1258 1955 Unknown [id number] 2.16.840.1.815801.3.579.2.1259 Medicare Medicare [id number] Unknown [place] BC/BS [id number] Unknown Regular Insurance [id number] Unknown [id number] 2.16.840.1.373367.3.579.2.531 Unknown [id number] 2.16.840.1.522621.3.579.2.531 Unknown [id number] 2.16.840.1.954769.3.579.2.531 Unknown [id number] 2.16.840.1.240150.3.579.2.531 Unknown [id number] 2.16.840.1.741200.3.579.2.531 Unknown [id number] 2.16.840.1.817386.3.579.2.531 Unknown [id number] 2.16.840.1.162918.3.579.2.531 Worker's Compensation [employer] [id number] Worker's Compensation [id number] Social History Date Type Detail Facility Start: 02-03-2022 End: 08-15-2023 Ex-smoker (finding) [facility] Start: 06-29-2020 End: 01-09-2023 Male [facility] Start: 1955 Sex Assigned At Male F [facility] Start: 06-18-1974 End: 2021 History of tobacco [...] to any clubs or organizations such as taoist groups, unions, fraternal or athletic groups, or [...] -6 months agoHeavy cigarette smoker (20-39 cigs/day) [facility] Start: 05-01-2023 Alcohol Comment Caffeine intake: non e [facility] Start: 1955 Sex Assigned At Not on file [facility] Start: 12-22-2020 Tobacco smoking stat [facility] Smokes tobacco daily [facility] Start: 04-15-2021 End: 08-16-2023 Alcohol intake Current non-drinker of alcohol (finding) [facility] Medical Equipment Procedure Code Equipment Code Equipment Origin al Text Equipment Identifier Dates EGD (esophagogastroduod enoscopy) Video capsule endoscopy system [id number])[id number] -DDC-B FDA Start: 08-18-2020 USE DIRECTED FOUR TIMES DAILY [id number] Start: 10-09-2022 use to test BLOO D SUGAR THREE TIMES DAILY [id number] Start: 09-19-2022 use to test BLOO D SUGAR THREE TIMES DAILY [id number] Start: 11-01-2022 Swivelcarola 4.75 - Sna - [id number] Start: 12-10-2017 Incv/Swivelock 4.75 Use [id number] - Sna - [id number] Start: 07-19-2020 Goals Date Patient Goal Desired Activity /State Personal health goal Comment on above: Formatting of this n ote might be different from the original. Evaluation of progress towards goal: Home self care with childrens support Functional Status Date Assessment Result Facility 02-12-2023 Functional Status N/A [facility] 02-03-2022 N/A [facility] Clinical Notes 11-04-2020 to 08-27-2023 Telephone Encounter [...] for titration appt documented in this encounter [facility] 08-27-2023 Telephone encounter Note ----- Message from SONNY Denis sent at 08/24/2023 10:25 AM EST ----- EF >45% ok for ASV [facility] 08-27-2023 Telephone encounter Note Noted below in sleep lab encounter and on appt desk for techs for titration appt [facility] 08-17-2023 Miscellaneous Notes 08/15 received CPAP order 08/16 Scheduled CPAP at [facility] 11/18 Confirmation mailed and emailed [employer] Medicare CPAP order and 08/15 Kregel notes in epic With TCO2 monitoring. Please obtain baseline in supine position. Starting pressure IPAP25 EPAP10 PS 5 notes CSA on last download plans for Echo prior to titration documented in this encounter [facility] 08-17-2023 Telephone encounter Note 08/15 received CPAP order 08/16 Scheduled CPAP at [facility] 6 Confirmation mailed and emailed [employer] Medicare CPAP order and 08/15 Kregel notes in epic With TCO2 monitoring. Please obtain baseline in supine position. Starting pressure IPAP25 EPAP10 PS 5 notes CSA on last download plans for Echo prior to titration [facility] 08-15-2023 History of Presen t illness Narrative [...] humidifier. Cleaning supplies with soap and water. [place] Sleepiness Scale: Sitting and Reading: (!) Moderate [...] Anemia Unknown Arthritis Benign prostatic hyperplasia Cancer ([facility]) PROSTATE COPD (chronic obstructive pulmonary disease) ([facility] Unknown Diabetes mellitus type 2, controlled ([facility]) GERD (gastroesophageal reflux disease) History of placement [...] Standing Expiration Date: 08/15/2024 Order Specific Question: [facility] required diagnosis: Answer: Personal history of nicotine [...] Order Specific Question: Release to patient via MobiC[employer]? Answer: Immediate [1] Echo complete W/O contrast Standing Status: Future Standing Expiration Date: 08/15/2024 Order Specific Question: Release to patient via [employer]? Answer: Immediate [1] Polysomnography 4 or more parameters with PAP titration Standing Status: Future Standing Expiration Date: 08/15/2024 Scheduling Instructions: With TCO2 monitoring. Please obtain baseline in supine position. Starting pressure IPAP25 EPAP10 PS 5 notes CSA on last download plans for Echo prior to titration Order Specific Question: Follow Up Answer: [facility] Sleep Medicine to read and follow [...] not to drive if sleepy, and to sinker puller if sleepiness occurs while driving. Above [...] have escaped final proofreading. Gregoria Ralph [facility] Office: [phone] 2:57 PM on 08/15/2023 CC: MD Gregoria GONZALEZ APRN-CNP 08/16/23 [id number] documented in this encounter [facility] 08-15-2023 Instructions SONNY Denis - 08/15/2023 1:15 PM EST If you re looking for general health and wellness resources, please visit [email or web address]. documented in this encounter [facility] 08-02-2023 Miscellaneous Notes Received sleep referral from Valeria Mckeon NP. Pt is already an established pt and last saw SK in 2020- was recommended to follow up with KW. However he was a no show for his last 2 appt with our office. Chat to Tahmina to advise if still to schedule appt. documented in this encounter [facility] 08-02-2023 Telephone encounter Note Received sleep referral from Valeria Mckeon NP. Pt is already an established pt and last saw SK in 2020- was recommended to follow up with KW. However he was a no show for his last 2 appt with our office. Chat to Tahmina to advise if still to schedule appt. [facility] 07-30-2023 History of Presen t illness Narrative Associated Problem(s): Type 2 diabetes mellitus with diabetic polyneuropathy, with long-term current use of insulin ([facility]) During the appointment today all [...] Breakfast Lunch Dinner Snacks Drinks Premade meal ([place] and dressing) (Mac and cheese) Protein shake [...] polyneuropathy, with long-term current use of insulin ([facility]) During the appointment today all [...] (BMI) of 36.0 to 36.9 in adult ([facility]) - Primary Follow up in [...] UNITS A DAY) LANCETS (ONETOUCH DELICA PLUS [id number]) MISC use to test BLOOD SUGAR THREE [...] mg) before bedtime. documented in this encounter [facility] 04-27-[address] [facility] 04-10-2023 Evaluation note Encounter Date Diagnosis Assessment Notes Mar, GERD (gastroesophage al reflux disease) (ICD-10 - K21.9) The patient continues to complain of ongoing regurgitation. He is taking Lansoprazole 30 mg dialy & we will increase this to 30 mg bid. Mar, Hemorrhoids (ICD-10 - K64.9) Mar, Alternating constipation and diarrhea (ICD-10 - R19.8) [facility] Other 10-03-2023 Evaluation note* Encounter Date Diagnosis Assessment Notes Treatment Notes Treatment Clinical Notes Mar, Gastroesophageal ref lux disease with esophagitis (ICD-10 - K21.0) [facility] Other 08-28-2023 Hospital Discharge instructions Patient Education [...] under a microscope. This is called the Bland score and the total score can range from 6 10, indicating how likely it is that the cancer will spread (metastasize) to other parts of the body. The higher the score, the greater thelikelihood that the cancer will spread. Bland 6 or lower: This indicates that the cancer cells look similar to normal prostate cells (well differentiated). Rosalina 7: This indicates that the cancer cells look somewhat similar to normal prostate cells (moderately differentiated). Bland 8, 9, or 10: This indicates that [...] stress of having cancer. General instructions Take fpgy-aox-lcgylzi and prescription medicines only as told by your health care provider. If you have to go to the hospital, notify your cancer specialist (oncologist). Keep all follow-up visits. This is important. Where to find more information [place] [employer]: www.cancer.org [place] [employer] of Clinical Oncology: www.cancer.net National Cancer [place]: www.cancer.gov Contact a health care provider if: [...] provider. Document Revised: 08/31/2021 Document Reviewed: 08/31/2021 [employer] Patient Education 2022 [employer]. Follow Up Care 02/03/2022 09:06:37 With:NICOLA RAYMUNDO, Peterson Owens, URL Address: [facility] [address] [place] [address]- [phone] When: Unknown Comments:1 yr w/ PSA [facility] 04-05-2023 Evaluation note* Encounter Date Diagnosis Assessment Notes Treatment Notes Treatment Clinical Notes Sep, Gastroesophageal ref lux disease with esophagitis (ICD-10 - K21.0) [facility] 02-06[facility] [facility]* Encounter Date Diagnosis Assessment Notes Treatment Notes Treatment Clinical Notes Jul, Diarrhea (ICD-10 - R19.7) Jul, GERD (gastroesophageal reflux disease) (ICD-10 - K21.9) Jul, Hemorrhoids (ICD-10 - K64.9) PATIENT TO START ANUSOL CREAM USE SITZ BATH NEEDED Jul, Dysphagia (ICD-10 - R13.10) [facility] Other 10-28-2022 NotePROCEDURE: XR FOOT RT MIN 3 VIEWS COMPARISON: None. HISTORY: Pain in right foot FINDINGS: BONES:No acute fracture or dislocation. Persistent hammertoe deformities. Moderate hallux valgus. 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 Bulky enthesopathic spurring of the calcaneus SOFT TISSUES:Negative. No visible soft tissue swelling. EFFUSION:None visible. OTHER: Negative. IMPRESSION: Degenerative changes Electronically authenticated by: SORIN SHORE Date: 2022-04-14 18:01[facility]08-19-2022 Hospital Discharge instructions Patient Education 02/03/2022 08:55:56 [...] urethra. Follow these instructions at home: Take kwzu-xpt-lxbfzhx and prescription medicines only as told by [...] 06/04/2006 Document Revised: 04/29/2019 Document Reviewed: 07/09/2017 [employer] Patient Education 2020 [employer]. Follow Up Care 08/05/2021 10:59:30 With:NICOLA RAYMUNDO, Peterson Owens, URL Address: [facility] [address], [place] [address]- When:1 year Comments:W/ PSA [facility] [place] 08-17-2021 NoteHNO ID: [id number] Author: Fawad Diaz MD Service: ? Author Type: Physician Type: Progress Notes Filed: 02/03/2021 9:48 AM Note Text: Radiation Oncology - Follow Up Note PATIENT NAME: Milad Seymour PATIENT DIAGNOSIS: DIAGNOSIS: Prostate adenocarcinoma, initial PSA 14.65, biopsy Bland score 3 + 3 = 6 (grade [...] Fawad Diaz MD cc: Dank Campo MD ([facility]) [address] [place] [address] Dr. Petersen Portions of the above note extracted and edited from previous visit as well as active information included in the EMR.[facility] 11-04-2020 NoteHNO ID: [id number] Author: Fawad Diaz MD Service: ? Author Type: Physician Type: Progress Notes Filed: 11/04/2020 9:44 AM Note Text: Radiation Oncology - Follow Up Note PATIENT NAME: Milad Seymour PATIENT DIAGNOSIS: DIAGNOSIS: Prostate adenocarcinoma, initial PSA 14.65, biopsy Bland score 3 + 3 = 6 (grade [...] ASSESSMENT/PLAN:DIAGNOSIS: Prostate adenocarcinoma, initial PSA 14.65, biopsy Bland score 3 + 3 = 6 (grade [...] Fawad Diaz MD cc: Dank Campo MD ([facility]) [address] [place] [address] Dr. [facility] Future Appointments Appointment Date:02/12/2023 09:15:00 AM Scheduled Provider:Peterson PETERSEN MD Location:[facility] Appointment Type:URO Office Visit Diagnostic Tests Pending * PSA Total 02/03/22 [facility] evaluation + Plan note Future Appointments Appointment Date:02/12/2023 09:15:00 AM Scheduled Provider:Peterson PETERSEN MD Location:[facility] Appointment Type:URO Office Visit [facility] evaluation + Plan note Future Appointments Appointment Date:02/15/2024 08:15:00 AM Scheduled Provider:Peterson PETERSEN MD Location:[facility] Appointment Type:URO Office Visit Diagnostic Tests Pending * PSA Total 02/12/23 [facility] evaluation noteNo assessment information available [facility] Work Phone: evaluation noteNo InformationNort [employer] Other Evaluxtpch note* Diagnosis Class 2 severe obesity due to excess calories with serious comorbidity and body mass index (BMI) of 36.0 to 36.9 in adult ([facility])- Primary Type 2 diabetes mellitus with diabetic polyneuropathy, with long-term current use of insulin ([facility]) documented [facility] this encounter [facility]* Diagnosis Onset Date Resolution Status H/O rotator cuff surgery acu te [facility] Work Phone: evaluxmyyx note* Diagnosis Personal history of tobacco use, presenting hazards to health- Primary Obstructive sleep apnea syndrome Obstructive sleep apnea (adult) (pediatric) CSA (central sleep apnea) Unspecified sleep apnea documented in this encounter [facility] SystemHistory and physical note Author Kike Bernal [facility] July 24, 2022 1:05pm Note Date/Time July 24, 2022 1 :05pm [facility] [address] [place] [address] Gastroenterology H&P Signed Patient: Milad Seymour MR#: [id number] : 1955 Acct:[id number] Age/Sex: 66 / M Adm Date: 3 Loc: Room: Type: [facility] Attending Dr: Kike Bernal MD [...] signed by Kike Bernal MD> 07/24/22 1305 [facility] Work Phone: History and physical note Author Kike Bernal [facility] April 27, 2023 11:41am Note Date/Time April 27, 2023 11:41am [facility] [address] [place] [address] Gastroenterology H&P Signed Patient: Milad Seymour MR#: [id number] : 1955 Acct:[id number] Age/Sex: 67 / M Adm Date: 3 Loc: Room: Type: [facility] Attending Dr: Kike Bernal MD [...] signed by Kike Bernal MD> 04/27/[address] [facility] Work Phone: History general Narrative - [...] Hospitalization History none in the last year [employer] Other Hospital course Narrative No data available for this section [facility] Discharge instructions Additional Instructions DISCHARGE INSTRUCTIONS [...] problems. -Follow up with PCP. -Office number [phone]. [facility] Work Phone: Hospital Discharge instructions No data available for this section [facility] Discharge instructions Additional Instructions DISCHARGE INSTRUCTIONS [...] in the office as scheduled -Office number [phone]. [facility] Work Phone: InstructionsNot on filedocumented in this encounter [facility] SystemInstructionsNot on filedocumented in this encounter [facility] SystemProgress note No data available for this section [facility] Summary Purpose Family History No Family History [...] more parameters with PAP titration Gregoria Ralph, BILLPOSTING SUPERVISOR-DISTRICT MANAGER [address], [address] [place] [address] Referral ID Status Reason Start Date Expiration Date V isits Requested Visits Authorized [id number] Pending Review 08/15/2023 08/14/2024 1 1 Specialty Diagnoses / Procedures Referred By Contac t Referred To Contact Diagnoses Obstructive sleep apnea syndrome CSA (central sleep apnea) Procedures Echo complete W/O contrast Gregoria Ralph BILLPOSTING SUPERVISOR-DISTRICT MANAGER [address], [address] [place] [address] [address] Phone: [phone] Referral ID Status Reason Start Date Expiration Date V isits Requested Visits Authorized [id number] Authorized 08/15/2023 11/12/2023 1 1 Specialty Diagnoses / Procedures Referred By Contac t Referred To Contact Radiology Diagnoses Personal history of tobacco use, presenting hazards to health Procedures CT low dose lung screenin (3mo 6mo follow-up) Gregoria Ralph BILLPOSTING SUPERVISOR-DISTRICT MANAGER [address] [address] Phone: [phone] Referral ID Status Reason Start Date Expiration Date V isits Requested Visits Authorized [id number] Authorized 08/16/2023 11/13/2023 1 1 Additional Source Comments (unrecognized sect ion and content) No Status Records FoundNo Status Records FoundNo Status Records FoundNo Status Records FoundNo Status Records FoundNo Status Records FoundNo Status Records FoundNo Status Records Found INFORMATION SOURCE (unrecogn ized section and content) DATE CREATED AUTHOR 08/06/2021 [facility] DATE CREATED AUTHOR AUTHOR'S ORGANIZ ATION 10/24/2022 [facility] DATE CREATED AUTHOR AUTHOR'S ORGANIZ ATION 08/18/2023 [facility] DATE CREATED AUTHOR AUTHOR'S ORGANIZ ATION 08/24/2023 [facility] DATE CREATED AUTHOR AUTHOR'S ORGANIZ ATION 10/05/2023 [facility] DATE CREATED AUTHOR AUTHOR'S ORGANIZ ATION 10/25/2023 [facility] DATE CREATED AUTHOR AUTHOR'S ORGANIZ ATION 11/01/2023 [facility] Special[facility] DATE CREATED AUTHOR AUTHOR'S ORGANIZ ATION 11/01/2023 [facility] y[facility] Care Team (unrecognized sect ion and content) [...] July 17, 2023 End: July 17, 2023 Neuropathologist Relationship Specialty Start Date End Date Dank Campo MD [address] [place] [address] PCP - General Family Medicine 07/25/23 Neuropathologist Relationship Specialty Start Date End Date Dank Campo MD [address] [place] [address] PCP - General Family Medicine 07/25/23 Neuropathologist Relationship Specialty Start Date End Date Dank Campo MD [address] [place] [address] PCP - General Family Medicine 12/10/17 Team [...] August 09, 2023 End: August 09, 2023 Neuropathologist Relationship Specialty Start Date End Date Dank Campo MD [address] [place] [address] PCP - General Family Medicine 12/10/17 Neuropathologist Relationship Specialty Start Date End Date Dank Campo MD [address] [place] [address] PCP - General Family Medicine 12/10/17 REASON FOR VISIT (unrecogniz ed section and content) Reason Comments Diabetes Reason Comments Sleep Apnea DME: [facility] Specialty Diagnoses / Procedures Referred By Anabel salinas Referred To Contact Pulmonary Medicine / Sleep Medicine Diagnoses Obstructive sleep apnea syndrome Jyoti Roth, BILLPOSTING SUPERVISOR-[facility] [address] [facility] [address] [place] [address] [facility] Sleep [facility] [address] [place] [address] [place] [address] Referral ID Status Reason Start Date Expiration Date Visits Requested Visits Authorized [id number] Pending Review Specialty Services Required 08/13/2023 08/12/2024 [...] BE BASED ON THE PRIMARY CLINICAL RECORDS. [facility]. provides no warranty or guarantee of the accuracy or completeness of information in this document.
[2023-11-05 06:53] VITALS: BP 132/82; PULSE 64; TEMP 36.3; O2SAT 96
[2023-11-05 07:01] LABS: Glucometer 163 mg/dL (74-106)
[2023-11-05] MEDS: IOHEXOL 240 MG/ML - 10 ML VIAL INJ (07:39)
[2023-11-05] MEDS: TRIAMCINOLONE ACETONIDE 40 MG/ML VIAL INJ (07:39)
[2023-11-05] MEDS: LIDOCAINE HCL 2% PF 100 MG/5 ML VIAL INJ (07:39)
[2023-11-05] MEDS: BUPIVACAINE HCL 0.25% PF 25 MG/10 ML VIAL INJ (07:39)
--- NOTE | 2023-11-05 07:41 | W.PM.PROCNOT ---
Date of procedure: 11/05/23 Pre-op diagnosis: Sacroiliitis, bilateral Post-op diagnosis: same as pre-op Procedure: Procedure: Bilateral block of the nerve innervating the sacroiliac joints Medications: Bupivacaine 0.25% 3cc, kenalog 40mg x2 After informed consent was obtained, the patient was brought to the medical procedure unit and placed in the prone position, when a timeout was completed verifying correct patient, procedure, site, positioning, implant, and/or special equipment.? The skin overlying the area was prepped and draped in standard sterile fashion using alcohol.? A 25-gauge needle was inserted towards the superior gluteal nerve innervating the left sacroiliac joint under direct fluoroscopic imaging.? Needle tip was advanced until the nerve was encountered.? We instilled a total of 1 mL of solution. Subsequently, the dorsal rami of L5, S1, and S2 were approached, and the procedure completed in the same fashion.?The same procedure, with the same steps, was then completed on the right side. Postoperatively needles were removed.? The patient tolerated the procedure well without complication.? The patient reported reduction in pain symptoms postoperatively. Anesthesia: Local Surgeon: Roma Lopez Pathology: none sent Condition: stable Disposition: no change
[2023-11-05 08:06] VITALS: BP 150/74; BP 156/71; PULSE 63; PULSE 65; O2SAT 95
== END 2023-11-05 07:45 | disposition home or self-care (01) ==
PROVIDERS: PCP Family Medicine; Visit Provider Anesthesiology
DX: M46.1 Sacroiliitis, not elsewhere classified (principal); Z79.4 Long term (current) use of insulin
CPT/HCPCS: 36415; 64451; 82948; Q9966

== ENCOUNTER 2023-11-14 08:59 | Outpatient (OUT) | payer MEDICARE, SELFPAY ==
--- NOTE | 2023-11-14 09:22 | PM.CN ---
Consult Note: HPI Data of Consult Patient: known to practice within the last 3 years Consult date: 10/01/23 Requesting Physician: Sandra Vu NP Primary Care Provider: Dank Bella MD Consult Narrative Reason for consult: low back pain, bilateral lower extremity pain Narrative: 68yom who presents for evaluation. notes worsening pain that radiates from low back to legs, worse with ambulation. underwent physical therapy within past 3 months, which did not provide lasting benefit. imaging shows multilevel degenerative changes, with stenosis at multiple levels, worst at l4-5. utilizes otc pain meds as needed, but does not like taking pills. denies adverse med side effects. Recently underwent bilateral L4-5 TFESI and bilateral SIJ injection with 95% improvement ongoing. Pain 0/10 increasing to 1/10 ache at the most in low back. cc:: CC: Sandra Vu NP Review of Systems ROS Status of ROS 10 or more systems reviewed and unremarkable except as noted in history and below [facility] Medical History (Updated 10/05/23 @ 13:35 by Zoraida Santana) Low back pain ?M54.50 - Low back pain, unspecified (ICD-10) Neck pain ?M54.2 - Cervicalgia (ICD-10) Osteoarthritis ?M19.90 - Unspecified osteoarthritis, unspecified site (ICD-10) Anxiety ?F41.9 - Anxiety disorder, unspecified (ICD-10) Heartburn ?R12 - Heartburn (ICD-10) Hiatal hernia ?K44.9 - Diaphragmatic hernia without obstruction or gangrene (ICD-10) Acid reflux ?K21.9 - Gastro-esophageal reflux disease without esophagitis (ICD-10) Prostate cancer ?C61 - Malignant neoplasm of prostate (ICD-10) Enlarged prostate ?N40.0 - Benign prostatic hyperplasia without lower urinary tract symptoms (ICD-10) Diabetes ?E11.9 - Type 2 diabetes mellitus without complications (ICD-10) History of home ventilator ?Z99.11 - Dependence on respirator [ventilator] status (ICD-10) Smoker ?F17.200 - Nicotine dependence, unspecified, uncomplicated (ICD-10) Sleep apnea ?G47.30 - Sleep apnea, unspecified (ICD-10) COPD (chronic obstructive pulmonary disease) ?J44.9 - Chronic obstructive pulmonary disease, unspecified (ICD-10) Heart murmur ?R01.1 - Cardiac murmur, unspecified (ICD-10) Irregular heart beat ?I49.9 - Cardiac arrhythmia, unspecified (ICD-10) High cholesterol ?E78.00 - Pure hypercholesterolemia, unspecified (ICD-10) Hypertension ?I10 - Essential (primary) hypertension (ICD-10) Surgical History S/P foot surgery ?Z98.890 - Other specified postprocedural states (ICD-10) Hx laparoscopic cholecystectomy ?Z90.49 - Acquired absence of other specified parts of digestive tract (ICD-10) S/P shoulder surgery ?Z98.890 - Other specified postprocedural states (ICD-10) S/P left knee arthroscopy ?Z98.890 - Other specified postprocedural states (ICD-10) History of appendectomy ?Z90.49 - Acquired absence of other specified parts of digestive tract (ICD-10) Meds Home Medications and Allergies Home Medications ?Medication ?Instructions ?Recorded ?Confirmed ?Type aspirin 81 mg capsule 81 mg PO DAILY 10/02/23 11/05/23 History baclofen 20 mg tablet mg 10/02/23 History celecoxib 200 mg capsule mg 10/02/23 History insulin glargine 100 unit/mL 60 unit subcut DAILY 10/02/23 11/05/23 History subcutaneous solution (Lantus U-100 Insulin) insulin lispro 100 unit/mL subcut 10/02/23 History subcutaneous pen lansoprazole 30 mg capsule,delayed mg 10/02/23 History release lisinopril 10 mg tablet mg 10/02/23 History loperamide 2 mg capsule mg 10/02/23 History magnesium oxide 400 mg (241.3 mg mg 10/02/23 History magnesium) tablet metoprolol succinate 50 mg mg PO 10/02/23 History tablet,extended release 24 hr simvastatin 40 mg tablet mg 10/02/23 History semaglutide 1 mg/dose (4 mg/3 mL) 1 mg subcut QWEEK 11/05/23 11/05/23 History subcutaneous pen injector (Ozempic) Allergies Allergy/AdvReac Type Severity Reaction Status Date / Time No Known Drug Allergies Allergy Verified 11/05/23 07:07 Exam Constitutional Documenting provider has reviewed patient's vital signs: yes Common normals: no apparent distress, oriented x3, healthy appearing, alert and well nourished General appearance: cooperative HENMT Common normals: normocephalic, hearing grossly normal bilaterally and moist oral mucous membranes Head and scalp: normocephalic Eye Common normals: PERRL Pupil: PERRL Neck & C-Spine Common normals: full ROM General: normal visual inspection Chest Common normals: inspection of chest normal Respiratory Common normals: normal respiratory effort, no retractions and no use of accessory muscles Back & Pelvis Lumbar spine/lower back: normal to inspection, lumbar ROM normal and pain with ROM Sacroiliac joints: SI joints normal Other: mildly positive left L4,5 L5,S1 facet tendnerness and facet loading bilateral negative samara(patricks), gaenslens, thigh thrust, compression test sensation intact BLE, strength 5/5 in BLE Extremity Common normals: normal to inspection and full ROM Neuro Common normals: oriented x3, CN's II-XII intact bilaterally, moves all extremities, no focal motor deficits, no sensory deficits noted and deep tendon reflexes 2+ bilaterally Sensorium/orientation: alert Motor exam: strength 5/5 throughout and no movement abnormalities noted Psych Common normals: mental status grossly normal, thought process normal, cooperative, affect normal, speech normal and activity/motor behavior normal Speech: normal speech Thought process: normal thought process Results Additional Findings Additional findings: If on a controlled substance or opioids, I have checked an [place]AR[place] report on this patient and there are no aberrancies noted in the prescribing history.??If on a controlled substance or opioid a drug screen was completed and reviewed within the last year, and if there has not been a drug screen completed we ordered one today to monitor higher risk, state monitored pain medication use. As part of providing excellent, safe, comprehensive care, the following was completed at our patient's visit: 1. A medication reconciliation and review to ensure accurate knowledge of current/active medications, including asking our patients to inform us about any nvsy-bsm-humkabd medications or herbal remedies/nutritional supplements/alternative remedies. 2. A review to specifically ensure our patients have had annual screening for screening for depression, screening for tobacco use, and screening for unhealthy alcohol use. For concerning screenings had a discussion with the patient, provided patient education, and recommended follow-up with primary care provider when appropriate. If patient noted with a risk of falling, they received education on strength, gait, and balance training to prevent future risk of falling. Assessment and Plan Assessment and Plan (1) Lumbar stenosis with neurogenic claudication: (2) Sacroiliac joint dysfunction of both sides: (3) Lumbar spondylosis: Plan f/u 3 months, sooner if needed
== END 2023-11-14 09:00 | disposition home or self-care (01) ==
LOC: PM 08:59
PROVIDERS: PCP Family Medicine; Visit Provider Nurse Practitioner
DX: M48.062 Spinal stenosis, lumbar region with neurogenic claudication (principal); M53.3 Sacrococcygeal disorders, not elsewhere classified; M47.816 Spondylosis without myelopathy or radiculopathy, lumbar region
CPT/HCPCS: G0463

== ENCOUNTER 2024-01-02 10:12 | Outpatient (OUT) | payer MEDICARE, SELFPAY ==
--- NOTE | 2024-01-02 10:56 | P.CN_ITS ---
Consult Note: HPI Data of Consult Patient: known to practice within the last 3 years Consult date: 10/01/23 Requesting Physician: Sandra Vu NP Primary Care Provider: Dank Bella MD Consult Narrative Reason for consult: low back pain, bilateral lower extremity pain Narrative: 68yom who presents for evaluation. notes worsening pain that radiates from low back to legs, worse with ambulation. underwent physical therapy within past 3 months, which did not provide lasting benefit. imaging shows multilevel degener ative changes, with stenosis at multiple levels, worst at l4-5. utilizes otc pain meds as needed, but does not like taking pills. denies adverse med side effects. Recently underwent bilateral L4-5 TFESI and bilateral SIJ injection with >80% overall improvement ongoing. Pain 0/10 increasing to 5/10 ache at the most in low back. Patient reports this weekend caused him moderate to severe pain, but has settled down. Patient finds benefit to celebrex and baclofen 20mg TID. cc:: CC: Sandra Vu NP Review of Systems ROS Status of ROS 10 or more systems reviewed and unremark able except as noted in history and below Musculoskeletal Reports: back pain [facility] Medical History (Updated 01/02/24 @ 11:11 by Sandra Vu NP) Low back pain ?M54.50 - Low back pain, unspecified (ICD-10) Neck pain ?M54.2 - Cervicalgia (ICD-10) Osteoarthritis ?M19.90 - Unspecified osteoarthritis, unspecified site (ICD-10) Anxiety ?F41.9 - Anxiety disorder, unspecified (ICD-10) Heartburn ?R12 - Heartburn (ICD-10) Hiatal hernia ?K44.9 - Diaphragmatic hernia without obstruction or gangrene (ICD-10) Acid reflux ?K21.9 - Gastro-esophageal reflux disease without esophagitis (ICD-10) Prostate cancer ?C61 - Malignant neoplasm of prostate (ICD-10) Enlarged prostate ?N40.0 - Benign prostatic hyperplasia without lower urinary tract symptoms (ICD-10) Diabetes ?E11.9 - Type 2 diabetes mellitus without complications (ICD-10) History of home ventilator ?Z99.11 - Dependence on respirator [ventilator] status (ICD-10) Smoker ?F17.200 - Nicotine dependence, unspecified, uncomplicated (ICD-10) Sleep apnea ?G47.30 - Sleep apnea, unspecified (ICD-10) COPD (chronic obstructive pulmonary disease) ?J44.9 - Chronic obstructive pulmonary disease, unspecified (ICD-10) Heart murmur ?R01.1 - Cardiac murmur, unspecified (ICD-10) Irregular heart beat ?I49.9 - Cardiac arrhythmia, unspecified (ICD-10) High cholesterol ?E78.00 - Pure hypercholesterolemia, unspecified (ICD-10) Hypertension ?I10 - Essential (primary) hypertension (ICD-10) Surgical History S/P foot surgery ?Z98.890 - Other specified postprocedural states (ICD-10) Hx laparoscopic cholecystectomy ?Z90.49 - Acquired absence of other specified parts of digestive tract (ICD- 10) S/P shoulder surgery ?Z98.890 - Other specified postprocedural states (ICD-10) S/P left knee arthroscopy ?Z98.890 - Other specified postprocedural states (ICD-10) History of appendectomy ?Z90.49 - Acquired absence of other specified parts of digestive tract (ICD- 10) Meds Home Medications and Allergies Home Medications ?Medication ?Instructions ?Recorded ?Confirmed ?Type aspirin 81 mg capsule 81 mg PO DAILY 10/02/23 11/05/23 History baclofen 20 mg tablet mg 10/02/23 History celecoxib 200 mg capsule mg 10/02/23 History insulin glargine 100 unit/mL 60 unit subcut DAILY 10/02/23 11/05/23 History subcutaneous solution (Lantus U-100 Insulin) insulin lispro 100 unit/mL subcut 10/02/23 History subcutaneous pen lansoprazole 30 mg capsule,delayed mg 10/02/23 History release lisinopril 10 mg tablet mg 10/02/23 History loperamide 2 mg capsule mg 10/02/23 History magnesium oxide 400 mg (241.3 mg mg 10/02/23 History magnesium) tablet metoprolol succinate 50 mg mg PO 10/02/23 History tablet,extended release 24 hr simvastatin 40 mg tablet mg 10/02/23 History semaglutide 1 mg/dose (4 mg/3 mL) 1 mg subcut QWEEK 11/05/23 11/05/23 History subcutaneous pen injector (Ozempic) Allergies Allergy/AdvReac Type Severity Reaction Status Date / Time No Known Drug Allergies Allergy Verified 11/05/23 07:07 Exam Constitutional Documenting provider has reviewed patient's vital signs: yes Common normals: no apparent distress, oriented x3, healthy appearing, alert and well nourished General appearance: cooperative [facility] Common normals: normocephalic, hearing grossly normal bilaterally and moist oral mucous membranes Head and scalp: normocephalic Eye Common normals: PERRL Pupil: PERRL Neck & C-Spine Common normals: full ROM General: normal visual inspection Chest Common normals: inspection of chest normal Respiratory Common normals: normal respiratory effort, no retractions and no use of accessory muscles Back & Pelvis Lumbar spine/lower back: normal to inspection, lumbar ROM normal, pain with ROM, lumbar spinal tenderness and paraspinal muscle tenderness Sacroiliac joints: SI joints normal Other: mildly positive left L4,5 L5,S1 facet tenderness and facet loading bilateral negative samara(patricks), gaenslens, thigh thrust, compression test sensation intact BLE, strength 5/5 in BLE Extremity Common normals: normal to inspection and full ROM Neuro Common normals: oriented x3, CN's II-XII intact bilaterally, moves all extremities, no focal motor deficits, no sensory deficits noted and deep tendon reflexes 2+ bilaterally Sensorium/orientation: alert Motor exam: strength 5/5 throughout and no movement abnormalities noted Psych Common normals: mental status grossly normal, thought process normal, cooperative, affect normal, speech normal and activity/motor behavior normal Speech: normal speech Thought process: normal thought process Results Additional Findings Additional findings: If on a controlled substance or opioids, I have checked an [place] report on this patient and there are no aberrancies noted in the prescribing history.??If on a controlled substance or opioid a drug screen was completed and reviewed within the last year, and if there has not been a drug screen completed we ordered one today to monitor higher risk, state monitored pain medication use. As part of providing excellent, safe, comprehensive care, the following was completed at our patient's visit: 1. A medication reconciliation and review to ensure accurate knowledge of current/active medications, including asking our patients to inform us about any [id number] medications or herbal remedies/nutritional supplements/alternative remedies. 2. A review to specifically ensure our patients have had annual screening for s creening for depression, screening for tobacco use, and screening for unhealthy alcohol use. For concerning screenings had a discussion with the patient, provided patient education, and recommended follow-up with primary care provider when appropriate. If patient noted with a risk of falling, they received education on strength, gait, and balance training to prevent future risk of falling. Assessment and Plan Assessment and Plan (1) Myofascial pain: (2) Lumbar stenosis with neurogenic claudication: (3) Sacroiliac joint dysfunction of both sides: (4) Lumbar spondylosis: Plan stop baclofen, start cyclobenzaprine 10mg TID PRN pain/spasms defer interventional therapy at this time, greater than 50% improvement ongoing from prior injections f/u as needed
== END 2024-01-02 10:13 | disposition home or self-care (01) ==
LOC: PM 10:13
PROVIDERS: PCP Family Medicine; Visit Provider Nurse Practitioner
DX: M79.18 Myalgia, other site (principal); M48.062 Spinal stenosis, lumbar region with neurogenic claudication; M53.3 Sacrococcygeal disorders, not elsewhere classified; M47.816 Spondylosis without myelopathy or radiculopathy, lumbar region
CPT/HCPCS: G0463

== ENCOUNTER 2024-01-28 11:29 | Outpatient (OUT) | payer MEDICARE, SELFPAY ==
--- OUTSIDE RECORDS SUMMARY | 2024-01-28 11:51 | XMS_ITS | CCD ---
Author Organization [facility] Care Team Providers Care Resident Advisor Name Role Phone DANK CAMPO Primary Care [...] NADEREGraciela, DR DANK Leon Primary Care Unavailable LUBBOCK, DR SORIN Rodarte Consulting Unavailable NADERER, DR DANK Leon Admitting Unavailable NADERER, DR DANK Leon Attending Unavailable NADERER, DR DANK Leon Primary Care Unavailable YENIEREGraciela, DR DANK Leon Consulting Unavailable MD Dank Campo Primary Care Provider [phone] MD Kike Bernal Attending Provider MD Dank Campo Attending Provider [phone] MD Dank Campo Attending Provider [phone] Jena RAYMUNDO, Dank Primary Care Provider Jena RAYMUNDO, Dank Primary Care Provider [phone] MD Dank Campo Primary Care Provider KERRI Holden Attending Provider MD Dank Campo Referring Provider [phone] GREGORIA RALPH Attending Unavailable NADERER, DANK Referring Unavailable NADERER, DANK Primary Care Unavailable GREGORIA RALPH Referring Unavailable NADERER, DANK Primary Care Unavailable GREGORIA RALPH Referring Unavailable NADERER, DANK Primary Care Unavailable Jessica RAYMUNDO, Roma Arteaga Attending Unavailable Jessica RAYMUNDO, Roma Arteaga Attending Unavailable Jessica RAYMUNDO, Roma Arteaga Attending Unavailable Naderer, Dank Primary Care Unavailable Naderer, Dank Attending Unavailable NadererDakn Admitting Unavailable Asaad, Imad Attending Unavailable Naderer, Dank Primary Care Unavailable Asaad, Imad Admitting Unavailable Edd Holden Admitting Unavailable Edd Holden Attending Unavailable Naderer, Dank Primary Care Unavailable Naderer, Dank Primary Care Unavailable Asaad, Imad Admitting Unavailable Asaad, Imad Attending Unavailable NadererDank Attending Unavailable Naderer, Dank Admitting Unavailable Naderer, Dank Primary Care Unavailable Naderer, Dank Attending Unavailable NadererDank Referring Unavailable Naderer, Dank Admitting Unavailable Naderer, Dank Primary Care Unavailable Naderer, Dank Primary Care Unavailable RothJyoti Admitting Unavailable Roth, Jyoti E Attending Unavailable RUSHER, DEXTER Leno Attending Unavailable ASHLI ROSS Attending Unavailable ASHLI ROSS Attending Unavailable JR. JOON, JOHANNE Vidales Attending Unavaila ble LAST, DEXTER Leon Attending Unavailable NADERERDANK Referring Unavailable NADERER, DANK Attending Unavailable RUSHER, DEXTER Leon Attending Unavailable HOLDENEDD MEJIA Attending Unavailable RUS, DEXTER Leon Attending Unavailable RUS, DEXTER Leon Attending Unavailable ROTHJYOTI CASTLE Attending Unavailable NADERER, DANK Attending Unavailable RUSHER, DEXTER Leon Attending Unavailable PETZNICK, ASHLI M Attending Unavailable EDD HOLDEN Attending Unavailable EDD HOLDEN Referring Unavailable DANK CAMPO Attending Unavailable LAST, DEXTER Leon Attending Unavailable DANK CAMPO Attending Unavailable DEXTER KRISHNAMURTHY Attending Unavailable DANK CAMPO Attending Unavailable GREGORIA RALPH Referring Unavailable DANK CAMPO Primary Care Unavailable Peterson PETERSEN Attending Unavailable DEJUAN PETERSEN Attending Unavailable Peterson PETERSEN Attending Unavailable ZEINAB MURO Attending UnavailZEINAB Lindquist Admitting UnavailPeterson Steel Attending Unavailable Allergies Allergy Classification Reported Allergen(s) Allergy Type Date of Onset Reaction(s) Facility (1 source) No Known Medication Allergies; 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: [No Known Medication Allergies] Propensity to adverse reactions (disorder) [facility] Repository Medications Current Medications Medication Drug [...] Ordered Start: 01-30-2019 take 1 capsule by [facility] twice daily celecoxib (CeleBREX) 200 MG capsule Indications: Lumbago with sciatica, right side TAKE 1 CAPSULE BY MOUTH TWICE DAILY 60 capsule 5 07/24/2023 Active Continuous Blood Gluc Sensor (Dexcom G7 Sensor) [facility] (4 sources) Start: 06-05-2023 End: 06-04-2024 Continuous Blood Gluc Sensor (Dexcom G7 Sensor) [facility] Indications: Type 2 diabetes mellitus with diabetic polyneuropathy, with long-term current use of insulin ([facility]) Inject 1 Device under the skin See administration instructions Change every 10 days 9 each 3 06/05/2023 06/04/2024 Active Continuous Blood Gluc Sensor (FreeStyle Cornelius 2 Sensor) [facility] (2 sources) Start: 05-23-2023 End: 07-30-2023 Continuous Blood Gluc Sensor (FreeStyle Cornelius 2 Sensor) [facility] Indications: Type 2 diabetes mellitus with diabetic polyneuropathy, with long-term current use of insulin ([facility]) Use as directed 2 each 11 05/23/2023 [...] 0 12/28/2022 Active fluticasone 0.05 mg/inh Nasal [place] (3 sources) Start: 07-28-2019 fluticasone 0.05 mg/inh Nasal [place] Nasal, Daily, Refill(s) 0 Start Date: 07/28/19 [...] Start: 12-10-2019 take 1 capsule by mo ut twice daily Loperamide HCl 2 MG 1 [...] polyneuropathy, with long-term current use of insulin ([facility]) Inject 0.5 mg under the skin 1 [...] Drug Class(es) Dates Sig (Normalized) Sig (Original) [id number] 200 actuat albuterol 0.09 mg/actuat metered dose inhaler (2 sources) beta2-Adrenergic Agonist Start: 12-22-2020 End: 08-15-2023 take 2 puff(s) by inhalation every four hours as needed for wheezing albuterol (PROVENTIL HFA;VENTOLIN HFA) 90 mcg/actuation inhaler Indications: Chronic obstructive pulmonary disease, unspecified COPD type ([facility]) Inhale 2 puffs every 4 (four) hours [...] 12-08-2020 End: 03-14-2021 Dibucaine Discontinued 1 APPLIC [place] Four times daily 56 December 07, 2020 [...] Fluticasone Propionate (Flonase Allergy Relief) 50 mcg/actuation [place],Suspension Discontinued 1 SPRAY INTRANASAL Daily February 10, 2020 11:00pm July 24, 2022 12:24pm Start: 07-28-2019 fluticasone 0. 05 mg/inh Nasal [place] Nasal, Daily, Refill(s) 0 Start Date: 07/28/19 [...] mg by mouth three times daily Pyridostigmine Dora Discontinued 60 MG PO Three times daily [...] 12-04-2022 Chronic Other aftercare (1 source) Other detention (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 therapy; 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: [OTH JAVA SECURITY ARCHITECT CURRENT DRUG THERAPY] Onset: 3 Episodic Other [...] sleep apnea] 08-15-2023 Chronic Residual codes; unclassified (3 sources) Obstructive sleep apnea (adult) (pediatric); 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: [Obstructive sleep apnea (adult) (pediatric)] Onset: 4 Chronic Residual codes; unclassified (3 sources) Primary central sleep apnea; 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: [Primary [...] sources) Long-term current use of insulin; 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: [exterminator (current) use of insulin] Onset: 12-04-2022 12-04-2022 [...] emptying studyon 08-22-2023 NM gastric emptying study [facility] [place] [address] Nuclear Medicine Report Signed Patient: Milad Seymour MR#: [id number] : 1955 Acct:[id number] Age/Sex: 67 / M ADM Date: 08/22/23 Loc: [place] Room: Type: [facility] Attending Dr: Kike Bernal MD Copies [...] IMAGING. Impression dictated by: Shaheen Grimes Jr., D.O.08/22/2023 12:21 PM Dictation Location: [place] [address] Transcribed By: [facility] 08/22/23 1221 Dictated By: Shaheen Grimes Jr, DO 08/22/23 1215 Signed By: 08/22/23 1221 Normal [facility] Glucose Poct Glucometerson 0 08-20-2023 Glucose [Mass/Vol] 182 mg/dL Normal [facility] Comment on above: Result Comment: [place] Glucose Reference Range is dependent on time and content of last meal. Glucose of more than 200 mg/dL in a nonstressed, ambulatory subject supports the diagnosis of Diabetes Mellitus. PERFORMED BY: [address] [place] [place] [address] PATHOLOGIST SEARCH LEAD JEANNINE VAZQUEZ M.D. Performed By: #### G LULS #### Point of Care testing , Glucose [Mass/Vol] 227 mg/dL Normal [facility] Comment on above: Result Comment: [facility] Glucose Reference Range is dependent on time and content of last meal. Glucose of more than 200 mg/dL in a nonstressed, ambulatory subject supports the diagnosis of Diabetes Mellitus. PERFORMED BY: [address] [place] [address] PATHOLOGIST SEARCH LEAD JEANNINE VAZQUEZ M.D. Performed By: #### G LULS #### Point of Care testing , XR pre/post mri xrayon 03-04 -2024 XR pre/post mri xray [facility] [place] [address] [place] [address] MRI Report Signed Patient: Milad Seymour MR#: [id number] : 1955 Acct:[id number] Age/Sex: 67 / M ADM Date: 08/20/23 Loc: [place] Room: Type: [facility] [place] [place] Attending Dr: Dank Campo MD Copies to: Dank Campo MD Ordering Provider: Dank Campo MD Date of Service: 08/20/23 MR/MR lumbar spine wo con: [id number] ([id number]) XR/XR pre/post mri xray: PRE LUMBAR MRI [...] Tom Chanel M.D.08/20/2023 1:02 PM Dictation Location: [place] [address] Transcribed By: [facility] 08/20/23 1302 Dictated By: Tom Chanel DO 08/20/23 1250 Signed By: 08/20/23 1302 Normal [facility] HbA1c (Bld) [Mass fraction]o n 07-30-2023 Interpretation and review of laboratory results Abnormal [facility] - Hematology and Cell countson 07-30-2023 HbA1c (Bld) [Mass fraction] 8.9 % [facility] CT shoulder LT w conon 07-24 CT shoulder LT w con [facility] [place] [address] [place] [address] CT Scan Report Signed Patient: Milad Seymour MR#: [id number] : 1955 Acct:[id number] Age/Sex: 67 / M ADM Date: 07/24/23 Loc: XD Room: Type: [facility] Attending Dr: Edd Holden VALIDATION ANALYST-C Copies to: Edd Holden ORGANIZATIONAL DEVELOPMENT MANAGER Ordering Provider: Edd Holden CNP Date [...] Kamran Chavira M.D.07/24/2023 1:48 PM Dictation Location: [place] [address] Transcribed By: [facility] 07/24/23 1348 Dictated By: Kamran Chavira II, MD 07/24/23 1336 Signed By: 07/24/23 1348 Normal [facility] [place] guided needle placementon 07-24-2023 FL guided needle placement [facility] [place] [address] [place], [place] [id number] Fluoroscopy Report Signed Patient: Milad Seymour MR#: [id number] : 1955 Acct:[id number] Age/Sex: 67 / M ADM Date: 07/24/23 Loc: XD Room: Type: [facility] Attending Dr: Edd Holden VALIDATION ANALYST-C Copies to: Edd Holden ORGANIZATIONAL DEVELOPMENT MANAGER Ordering Provider: Edd Holden ORGANIZATIONAL DEVELOPMENT MANAGER Date of Service: 07/24/23 FL/FL guided needle [...] Kamran Chavira M.D.07/24/2023 12:39 PM Dictation Location: [place] [address] Transcribed By: [facility] 07/24/23 1239 Dictated By: Kamran Chavira II, MD 07/24/23 1231 Signed By: 07/24/23 1239 Normal [facility] Capillary blood glucose deb urement by glucometer (mass/volume)Ordered By: Kike Bernal on 04-27-2023 Glucose [Mass/Vol] 189 mg/dL [facility] Comment on above: Random Glucose Refer ence Range is dependent on time and content of last meal. Glucose of more than 200 mg/dL in a nonstressed, ambulatory subject supports the diagnosis of Diabetes Mellitus. Result Comment: [place] om Glucose Reference Range is dependent on time and content of last meal. Glucose of more than 200 mg/dL in a nonstressed, ambulatory subject supports the diagnosis of Diabetes Mellitus. Performed By: #### G LUCI #### Point of Care testing , Glucose Poct Glucometerson 1 06-27-2022 Commemt1 Glu2: Cleaned Meter Normal [facility] Comment on above: Result Comment: PERF ORMED BY: [facility] [address] [place] [address] PATHOLOGIST SEARCH LEAD JEANNINE VAZQUEZ M.D. Performed By: #### G LUCI #### Point of Care testing , William 04-27-2023 L ------ Specimen: [id number] Received: 04/27/23 Status: MASSIEL Holloway Num: [id number] Spec Type: Surgical Subm Dr: Kike Bernal MD Tissues: A Colon Biopsy (RANDOM COLON) Procedures: HE/2, Gross/Micro L4 Age/ Patient Sex Location Account Attending Physician Milad Seymour/M [id number] Kike Bernal MD SPEC NUM: [id number] RECD: 04/27/23 STATUS: MASSIEL HOLLOWAY NUM: [id number] KURT: 04/27/[address] [facility] [address]: Kike Bernal MD ENTERED: 04/27/[address] [facility] [address]: VERA TYPE: Surgical DEPT: [...] microscopic examination confirms the diagnosis. CPT Codes 47029 Specimen: [id number] Received: 04/27/23 Status: MASSIEL [place] Num: [id number] Spec Type: Surgical Subm Dr: Kike Bernal MD Tissues: A Colon Biopsy (RANDOM COLON) Procedures: Daljit TREVINO/Vance L4 Patient: Milad Seymour [id number] (Continued) Signed (signature on file) Kaushal Magana MD 04/30/23 9678 Normal [facility] No Panel InformationOrdered By: Kike Bernal on 04-27-2023 Bedside Glucose Comment Glu2: cleaned meter [facility] Patient Educationon 02-13-20 23 Patient Education [...] external be (more content not included)... Normal [facility] Reminderson 02-12-2023 Reminders - From: Johana Reeves To: NOREEN Petersen; Sent: 02/12/2023 17:56:32 EDT Show up: 01/13/2024 17:56:00 EDT Subject: PSA prior to appt Reminder Message Please Remember to:_have pt get PSA done prior to appt in 1 year. Normal [facility] Urology Office/Clinic Noteon 02-12-2023 Urology Office/Clinic [...] When Contact Information NICOLA RAYMUNDO, Peterson Owens, [facility] [address] [place] [address] [phone] Additional Instructions: 1 yr w/ PSA Patient [...] TID celecoxib, Oral fluticasone 0.05 mg/inh Nasal [place], Nasal, Daily Insulin Lispro KwikPen 100 units/mL [...] for this result was chemiluminescence using [employer] Access Hybritech PSA reagent. PSA Total 0.5 ng/mL 11/28/2022 11:31 EDT The concentration of P (more content not included)... Normal [facility] Comment on above: Result Comment: Elec tronically Signed By: Peterson PETERSEN MD\.br\Date and Time Signed: 02/12/23 10:15 EDT\.br\Electronically Co-Signed By: Johana Reeves\.br\Date and Time Co-Signed: 02/12/23 10:14 EDT Ambulatory Visit Summaryon 0 02-06-2023 Ambulatory Visit Summary MILAD SEYMOUR :1955 Visit Date:02/06/2023 Ambulatory Visit Instructions Your Diagnosis Prostate cancer Your Care Team Attending Physician - NICOLA RAYMUNDO, DEJUAN Primary Care Physician - DANK CAMPO MD This Is Your Medications List aspirin (aspirin 81 mg Oral EC Tab) baclofen celecoxib fluticasone nasal (fluticasone 0.05 mg/inh Nasal [place]) lansoprazole lisinopril metformin metoprolol (metoprolol 25 mg ER Tab) simvastatin Procedures Performed Laparoscopic cholecystectomy (03/2021), Radiation (01/16/2020), Transrectal biopsy of prostate using ultrasound (US) guidance (09/23/2019), Transrectal biopsy of prostate using ultrasound (US) guidance (09/03/2018), Appendectomy, Colonoscopy, Tonsillectomy. What to do next Scheduled Follow-Up Appointments Sunday 9:15 AM EDT With: NICOLA RAYMUNDO, Peterson Owens Where: [facility] CHEMISTRYOrdered By: SYSTEM SYSTEM on 02-06-2023 Prostate specific Ag [Mass/Vol] 0.4 ng/mL Normal 0.1 - 3.5 ng/mL [facility] Remisol PSA Totalon 02-06-2023 Prostate specific Ag [Mass/Vol] 0.4 ng/mL Normal 0.1-3.5 [facility] Comment on above: Result Comment: The concentration of PSA determined by different manufacturers can vary due to differences in assay methods and reagent specificity. Values obtained from different assay methods cannot be used interchangeably. The methodology used for this result was chemiluminescence using [employer]'s Access Hybritech PSA reagent. Performed By: #### 1 [id number] #### [facility] [address] [place] [address] PANCREATIC ELASTASE FECALon 09-24-2022 Pancreatic Elastase, Fecal 467 ug Elast./g Normal >200 [facility] Comment on above: Result Comment: Nicolle re Pancreatic Insufficiency: <100 Moderate Pancreatic Insufficiency: 100 - 200 Normal: >200 Performed By: #### C PEPT #### [facility] [address] [place], [place] [address] Dr. Stewart De La Cruz POTASSIUM, FECALon 3 Potassium, Stool 57 mmol/L Normal [facility] Comment on above: Result Comment: INTE RPRETIVE INFORMATION: Fecal Potassium A reference interval has not been established for fecal specimens. This test was developed and its performance characteristics determined by [employer]. It has not been cleared or approved by the [place] Food and Drug Administration. This test was performed in a CLIA certified laboratory and is intended for clinical purposes. Performed By: #### C PEPT #### [facility] [address] [place] [address] Dr. Stewart De La Cruz SODIUM, FECALon 09-17-2022 Sodium, Stool 65 mmol/L Normal [facility] Comment on above: Result Comment: INTE RPRETIVE INFORMATION: Fecal Sodium A reference interval has not been established for fecal specimens. This test was developed and its performance characteristics determined by [employer]. It has not been cleared or approved by the [place] Food and Drug Administration. This test was performed in a CLIA certified laboratory and is intended for clinical purposes. Performed By: #### F ECALN #### [facility] [address] [place] [address] Dr. Stewart De La Cruz CALPROTECTIN, FECALon 2022 Calprotectin, Fecal 43 ug/g Normal 0-120 [facility] Comment on above: Result Comment: Conc entration Interpretation Follow-Up <16 - 50 ug/g Normal None >50 -120 ug/g Borderline Re-evaluate in 4-6 weeks >120 ug/g Abnormal Repeat as clinically indicated Performed By: #### C PEPT #### [facility] [address] [place] [address] Dr. Stewart De La Cruz C-PEPTIDE, SERUMon 3 C-Peptide, Serum 6.5 ng/mL Critically high 1.1-4.4 [facility] Comment on above: Result Comment: C-Pe ptide reference interval is for fasting patients. Performed By: #### C PEPT #### [facility] [address] [place] [address] Dr. Stewart De La Cruz HIV 1 AND 2 WITH REFLEXon HIV Screen 4th Generation wRfx Non-Reactive Normal Non Reactive [facility] Comment on above: Result Comment: HIV Negative HIV-1/HIV-2 antibodies and HIV-1 p24 antigen were NOT detected. There is no laboratory evidence of HIV infection. Performed By: #### C PEPT #### [facility] [address] [place] [address] Dr. Stewart De La Cruz INSULINon 09-13-2022 Insulin 13.9 uIU/mL Normal 2.6-24.9 [facility] Comment on above: Performed By: #### C PEPT #### [facility] [address] [place] [address] Dr. Stewart De La Cruz POTASSIUM, FECALon Potassium, Stool QNSMT Normal [facility] Comment on above: Result Comment: Test not performed. One specimen was submitted with requests for multiple tests. The requested testing requires a separate specimen for each test requested. contacted Keesha at your facility on 09-13-2022 Performed By: #### C PEPT #### [facility] [address] [place] [address] Dr. Stewart De La Cruz SODIUM, FECALon 09-13-2022 Sodium, Stool QNSMT Normal [facility] Comment on above: Result Comment: Test not performed. One specimen was submitted with requests for multiple tests. The requested testing requires a separate specimen for each test requested. contacted Keesha at your facility on 09-13-2022 Performed By: #### F ECALN #### [facility] [address] [place] [address] Dr. Stewart De La Cruz CBC AUTO DIFFon 09-12-2022 BASO # 0.1 103/ul Normal 0.0-0.1 [facility] Comment on above: Performed By: #### C PEPT #### [facility] [address] [place] [address] Dr. Stewart De La Cruz Basophils/100 WBC (Bld) 1.2 % Normal 0.2-2.0 [facility] Comment on above: Performed By: #### C PEPT #### [facility] [address] [place] [address] Dr. Stewart De La Cruz EO # 0.3 103/ul Normal 0.0-0.7 [facility] Comment on above: Performed By: #### C PEPT #### [facility] [address] [place] [address] Dr. Stewart De La Cruz Eosinophils/100 WBC (Bld) 4.5 % Normal 0.9-7.0 [facility] Comment on above: Performed By: #### C PEPT #### [facility] [address] [place] [address] Dr. Stewart De La Cruz Erythrocyte distribution width (RBC) [Ratio] 12.9 % Normal 11.0-15.0 [facility] Comment on above: Performed By: #### C PEPT #### [facility] [address] [place] [address] Dr. Stewart De La Cruz Hematocrit (Bld) [Volume fraction] 44.6 % Normal 42.0-54.0 [facility] Comment on above: Performed By: #### C PEPT #### [facility] [address] [place] [address] Dr. Stewart De La Cruz Hemoglobin (Bld) [Mass/Vol] 14.9 g/dL Normal 14.0-18.0 [facility] Comment on above: Performed By: #### C PEPT #### [facility] [address] [place] [address] Dr. Stewart De La Cruz IG # 0.03 10e3/ul Normal 0.00-0.03 [facility] Comment on above: Performed By: #### C PEPT #### [facility] [address] [place] [address] Dr. Stewart De La Cruz IG % 0.5 % Normal 0.0-0.5 [facility] Comment on above: Performed By: #### C PEPT #### [facility] [address] [place] [address] Dr. Stewart De La Cruz LYMPH # 1.1 103/ul Critically low 1.2-3.8 [facility] Comment on above: Performed By: #### C PEPT #### [facility] [address] [place] [address] Dr. Stewart De La Cruz Lymphocytes/100 WBC (Bld) 18.5 % Critically low 20.5-60.0 [facility] Comment on above: Performed By: #### C PEPT #### [facility] [address] [place] [address] Dr. Stewart De La Cruz MANUAL DIFF REQ NO Normal [facility] Comment on above: Performed By: #### C PEPT #### [facility] [address] [place] [address] Dr. Stewart De La Cruz MCH (RBC) [Entitic mass] 29.2 pg Normal 25.9-34.0 [facility] Comment on above: Performed By: #### C PEPT #### [facility] [address] [place] [address] Dr. Stewart De La Cruz MCHC (RBC) [Mass/Vol] 33.4 g/dL Normal 29.9-35.2 [facility] Comment on above: Performed By: #### C PEPT #### [facility] [address] [place] [address] Dr. Stewart De La Cruz MCV (RBC) [Entitic vol] 87.5 fL Normal 80.0-94.0 [facility] Comment on above: Performed By: #### C PEPT #### [facility] [address] [place] [address] Dr. Stewart De La Cruz MONO # 0.4 103/ul Normal 0.3-0.8 [facility] Comment on above: Performed By: #### C PEPT #### [facility] [address] [place] [address] Dr. Stewart De La Cruz Monocytes/100 WBC (Bld) 6.8 % Normal 1.7-12.0 [facility] Comment on above: Performed By: #### C PEPT #### [facility] [address] [place] [address] Dr. Stewart De La Cruz NEUT # 4.2 103/ul Normal 1.4-6.[address] [facility] Comment on above: Performed By: #### C PEPT #### [facility] [address] [place] [address] Dr. Stewart De La Cruz Neutrophils/100 WBC (Bld) 68.5 % Normal 43.0-75.0 [facility] Comment on above: Performed By: #### C PEPT #### [facility] [address] [place] [address] Dr. Stewart De La Cruz Platelet mean volume (Bld) [Entitic vol] 9.8 fL Normal 9.5-13.5 [facility] [facility] Comment on above: Performed By: #### C PEPT #### [facility] [address] [place] [address] Dr. Stewart De La Cruz PLT 133 103/ul Critically low 150-450 [facility] Comment on above: Performed By: #### C PEPT #### [facility] [address] [place] [address] Dr. Stewart De La Cruz RBC 5.10 106/ul Normal 4.70-6.10 [facility] Comment on above: Performed By: #### C PEPT #### [facility] [address] [place] [address] Dr. Stewart De La Cruz WBC 6.1 103/ul Normal 4.0-11.0 [facility] Comment on above: Performed By: #### C PEPT #### [facility] [address] [place] [address] Dr. Stewart De La Cruz CRPon 09-12-2022 CRP [Mass/Vol] mg/L Normal <=1.0 [facility] Comment on above: Performed By: #### C RP #### [facility] [address] [place] [address] Dr. Stewart De La Cruz GLYCOHEMOGLOBIN A1Con 2022 ADA RECOMMENDATION SEE BELOW Normal [facility] Comment on above: Result Comment: ADA RECOMMENDED LIMIT 4.0 - 6.0 ADA THERAPEUTIC TARGET < 7.0 ACTION SUGGESTED > 7.0 Performed By: #### A 1C #### [facility] [address] [place] [address] Dr. Stewart De La Cruz Glucose [Mass/Vol] 278 mg/dL Normal [facility] Comment on above: Performed By: #### A 1C #### [facility] [address] [place] [address] Dr. Stewart De La Cruz HbA1c (Bld) [Mass fraction] 11.3 % Critically high 4.5-6.2 [facility] Comment on above: Performed By: #### A 1C #### [facility] [address] [place] [address] Dr. Stewart De La Cruz PROF CHEM 8 (BAS METB)on Anion gap [Moles/Vol] 16.9 mmol/L Normal [facility] Comment on above: Performed By: #### C PEPT #### [facility] [address] [place] [address] Dr. Stewart De La Cruz Calcium [Mass/Vol] 9.3 mg/dL Normal 8.5-10.1 [facility] Comment on above: Performed By: #### C PEPT #### [facility] [address] [address] [address] Stewart De La Cruz Chloride [Moles/Vol] 103 mmol/L Normal 98-107 [facility] Comment on above: Performed By: #### C PEPT #### [facility] [address] [place] [address] Dr. Stewart De La Cruz CO2 [Moles/Vol] 26.0 mmol/L Normal 21.0-32.0 [facility] Comment on above: Performed By: #### C PEPT #### [facility] [address] [place] [address] Dr. Stewart De La Cruz Creatinine [Mass/Vol] 1.43 mg/dL Critically high 0.70-1.30 [facility] Comment on above: Performed By: #### C PEPT #### [facility] [address] [place] [address] Dr. Stewart De La Cruz EGFR-AF [place] 60 mL/min/1.73m2 Normal >=60 [facility] Comment on above: Performed By: #### C PEPT #### [facility] [address] [place] [address] Dr. Stewart De La Cruz EGFR-NON AF [place] 49 mL/min/1.73m2 Critically low >=60 [facility] Comment on above: Performed By: #### C PEPT #### [facility] [address] [address] [address] Stewart De La Cruz Glucose [Mass/Vol] 293 mg/dL Critically high 74-106 T [facility] Comment on above: Performed By: #### C PEPT #### [facility] [address] [address] [address] Stewart De La Cruz Potassium [Moles/Vol] 4.9 mmol/L Normal 3.5-5.1 [facility] Comment on above: Performed By: #### C PEPT #### [facility] [address] [address] [address] Stewart De La Cruz Sodium [Moles/Vol] 141 mmol/L Normal 136-145 [facility] Comment on above: Performed By: #### C PEPT #### [facility] [address] [address] [address] Stewart De La Cruz Urea nitrogen [Mass/Vol] 32.0 mg/dL Critically high 7.0-18.0 [facility] Comment on above: Performed By: #### C PEPT #### [facility] [address] [address] [address] Stewart De La Cruz Urea nitrogen/Creatinine [Mass ratio] 22.4 mg/mg Normal [facility] Comment on above: Performed By: #### C PEPT #### [facility] [address] [address] [address] Stewart De La [facility] mm/hr Normal <=20 [facility] Comment on above: Performed By: #### S EDR #### [facility] [address] [place] [address] Dr. Stewart De La Cruz RAD EGD - documentation only do not orderon 07-25-2022 RAD EGD - documentation only do not order [employer] Other Glucose Glucometer (dC) [M ass/Vol]Ordered By: Kike Bernal on 07-24-2022 Glucose [Mass/Vol] 275 mg/dL [facility] Comment on above: Random Glucose Refer ence Range is dependent on time and content of last meal. Glucose of more than 200 mg/dL in a nonstressed, ambulatory subject supports the diagnosis of Diabetes Mellitus. GLYCOHEMOGLOBIN A1Con 2021 ADA RECOMMENDATION SEE BELOW Normal [facility] Comment on above: Result Comment: ADA RECOMMENDED LIMIT 4.0 - 6.0 ADA THERAPEUTIC TARGET < 7.0 ACTION SUGGESTED > 7.0 Performed By: #### A 1C #### [facility] [address] [address] [address] Stewart De La Cruz Glucose [Mass/Vol] 235 mg/dL Normal [facility] Comment on above: Performed By: #### A 1C #### [facility] [address] [address] [address] Stewart De La Cruz HbA1c (Bld) [Mass fraction] 9.8 % Critically high 4.5-6.2 [facility] Comment on above: Performed By: #### A 1C #### [facility] [address] [address] [address] Stewart De La Cruz GLYCOHEMOGLOBIN A1Con 2021 ADA RECOMMENDATION SEE BELOW Normal [facility] Comment on above: Result Comment: ADA RECOMMENDED LIMIT 4.0 - 6.0 ADA THERAPEUTIC TARGET < 7.0 ACTION SUGGESTED > 7.0 Performed By: #### A 1C #### [facility] [address] [place] [address] Dr. Stewart De La Cruz Glucose [Mass/Vol] 197 mg/dL Normal [facility] Comment on above: Performed By: #### A 1C #### [facility] [address] [place] [address] Dr. Stewart De La Cruz HbA1c (Bld) [Mass fraction] 8.5 % Critically high 4.5-6.2 [facility] Comment on above: Performed By: #### A 1C #### [facility] [address] [place] [address] Dr. Stewart De La Cruz PSA, FREE AND TOTAL RATIOon 01-28-2022 % Free PSA 30.0 % Normal [facility] Comment on above: Result Comment: The [...] Performed By: #### P SAFREE #### [facility] [address] [place] [address] Dr. Stewart De La Cruz Prostate specific Ag [Mass/Vol] 0.1 ng/mL Normal 0.0-4.0 [facility] Comment on above: Result Comment: Nina PUCKETT methodology. . According to the [place] [employer], Serum PSA should decrease and [...] Performed By: #### P SAFREE #### [facility] [address] [place] [address] Dr. Stewart De La Cruz PSA, Free 0.03 ng/mL Normal N/A [facility] Comment on above: Result Comment: Nina PUCKETT methodology. Performed By: #### P SAFREE #### [facility] [address] [place] [address] Dr. Stewart De La Cruz GLYCOHEMOGLOBIN A1Con 2021 ADA RECOMMENDATION SEE BELOW Normal [facility] Comment on above: Result Comment: ADA RECOMMENDED LIMIT 4.0 - 6.0 ADA THERAPEUTIC TARGET < 7.0 ACTION SUGGESTED > 7.0 Performed By: #### A 1C #### [facility] [address] [place] [address] Dr. Stewart De La Cruz Glucose [Mass/Vol] 192 mg/dL Normal [facility] Comment on above: Performed By: #### A 1C #### [facility] [address] [place] [address] Dr. Stewart De La Cruz HbA1c (Bld) [Mass fraction] 8.3 % Critically high 4.5-6.2 [facility] Comment on above: Performed By: #### A 1C #### [facility] [address] [place] [address] Dr. Stewart Crzu 02-01-2021 CNOV Office Visit (RADTSA ) -- MILAD SEYMOUR ([id number]) 1955 M Date Time Provider Department 02/01/21 [...] Fawad Diaz MD cc: Dank Campo MD ([facility]) [address] [place] [address] Dr. Petersen Portions of the above note extracted and edited from previous visit as well as active information included in the EMR. Referring Provider: Fawad DIAZ [[id number]] Allergies As of Date: 02/01/2021 (No Known Allergies) Date Reviewed: 02/01/2021 Reviewed by: Tila Herrera LPN - Fully Assessed Reason for Visit: Prostate Cancer [590] Primary Visit Diagnosis:Malignant neoplasm of prostate (HCC) [C61] Order(s):PSA/PROSTSPECAG DIAG [SQPSA] Order #: [id number] FUTURE Prescriptions as of 02/03/2021 - aspirin, [...] magnesium) t (more content not included)... Normal [facility] PSA, Diagnosticon 01-25-2021 PSA, Diagnostic 0.29 ng/mL Normal 0.00-2.59 [facility] Comment on above: Result Comment: Sandra manzo PSA test methodology used is the Electrochemiluminescence Immunoassay. Performed By: #### P SA #### [facility] [employer] [address] [address] OBSOLETEon 12-22-2020 OBSOLETE Refill (RADTSA) -- MILAD SEYMOUR ([id number]) 1955 M Date Time Provider Department 12/22/20 [...] Encounter Status:Closed by TILA HERRERA on 01/04/21 [facility] CNOVon 11-03-2020 CNOV Office Visit (RADTSA ) -- MILAD SEYMOUR ([id number]) 1955 M Date Time Provider Department 11/03/20 4:00 PM LAB/PORT RADT ADAM COCHRAN During your visit today, we recorded the following information about you: Referring Provider: Fawad DIAZ [[id number]] Allergies As of Date: 11/03/2020 (No Known [...] Encounter Status:Closed by TILA HERRERA on 11/03/20 [facility] (RADTSA ) -- MILAD SEYMOUR ([id number]) 1955 M Date Time Provider Department 11/03/20 [...] DIAGNOSIS: Prostate adenocarcinoma, initial PSA 14.65, biopsy Lincoln score 3 + 3 = 6 (grade [...] ASSESSMENT/PLAN:DIAGNOSIS: Prostate adenocarcinoma, initial PSA 14.65, biopsy Lincoln score 3 + 3 = 6 (grade [...] Fawad Diaz MD cc: Dank Campo MD ([facility]) [address] [place] [address] Dr. Petersen Referring Provider: Fawad DIAZ [[id number]] Allergies As of Date: 11/03/2020 (No Known Allergies) Date Reviewed: 11/03/2020 Reviewed by: Fawad Diaz MD - Fully Assessed Reason for Visit: Prostate Cancer [590] Primary Visit Diagnosis:Malignant neoplasm of prostate (HCC) [C61] Order(s):PSA/PROSTSPECAG DIAG [SQPSA] Order #: [id number] FUTURE Prescriptions as of 11/03/2020 Sig: TAMSULOSIN [...] 30 mg (more content not included)... Normal [facility] PSA, Diagnosticon 11-01-2020 PSA, Diagnostic 0.27 ng/mL Normal 0.00-2.59 [facility] Comment on above: Result Comment: Sandra manzo PSA test methodology used is the Electrochemiluminescence Immunoassay. Performed By: #### P SA #### [facility] [address] [place], [place] [address] [facility] 10-29-2020 [facility] (RADTSA[facility] -- MILAD SEYMOUR ([id number]) 1955 Date Time Provider Department 10/29/20 Fawad DIAZ [...] since completing radiation therapy. Call transferred to [facility] to move up appointment. Dr. [...] (HCC) [C61] Order(s):PSA/PROSTSPECAG DIAG [SQPSA] Order #: [id number] FUTURE Prescriptions as of 10/29/2020 Sig: TAMSULOSIN 0.4 MG CAPSULE Take 1 capsule by mouth twice* LOPERAMIDE 2 MG CAPSULE Take 2 mg by mouth twice dionisio* DICYCLOMINE 20 MG TABLET Take 20 mg by mouth three lazrao* MODAFINIL 200 MG TABLET Take 200 mg [...] Encounter Status:Closed by TILA HERRERA on 10/29/20 [facility] Giuseppe 10-08-2020 [facility] Tele[facility] (HEMASA) -- MILAD SEYMOUR ([id number]) 1955 M Date Time Provider Department 10/08/20 HEATHER BARRIGA During your visit today, we recorded the following information about you: Allergies As of Date: 10/08/2020 (No Known Allergies) Date Reviewed: 07/14/2020 Reviewed by: Joann Richardson - Fully Assessed Reason for Visit: Lab Orders [1688] Primary Visit Diagnosis:Iron deficiency anemia due to chronic blood loss [D50.0] Order(s):CBC + DIFF (FOR [facility] USE) [SQRCBCDF] Order #: [id number] FUTURE COMP METABOLIC PANEL [SQCMP] Order #: [id number] FUTURE Prescriptions as of 10/08/2020 Sig: TAMSULOSIN [...] to chronic blood los*01/16/2020 Encounter Status:Closed by TSAHA GOOD on 10/14/20 [facility] OBSOLETEon 09-20-2020 OBSOLETE Refill (RADTSA) -- MILAD SEYMOUR ([id number]) 1955 M Date Time Provider Department 09/20/20 [...] TABLET Take 200 mg by mouth once mgiuel* ASPIRIN 81 MG TABLET,DELAYED * q 24 [...] * Take 60 mg by mouth three lzaaro* SIMVASTATIN 40 MG TABLET simvastatin 40 mg [...] Status:Closed by TILA HERRERA on 10/14/20 Normal [facility] Vital Signs Date Time Vital Sign Value Performing Clinician Facility 08-15-2023 13:35-0500 Diastolic blood pressure 60 mm[Hg] Gregoria Ralph APRN-ORGANIZATIONAL DEVELOPMENT MANAGER Work Phone: [facility] 08-15-2023 13:35-0500 Systolic blood pressure 107 mm[Hg] Gregoria Ralph APRN-ORGANIZATIONAL DEVELOPMENT MANAGER Work Phone: [facility] [employer] [facility] 08-15-2023 13:33-0500 Body height 175.3 cm Gregoria Ralph APRN-ORGANIZATIONAL DEVELOPMENT MANAGER Work Phone: [facility] 08-15-2023 13:33-0500 Body mass index (BMI) [Ratio] 36.77 kg/m2 Gregoria Ralph APRN-ORGANIZATIONAL DEVELOPMENT MANAGER Work Phone: [facility] 08-15-2023 13:33-0500 Body weight 112.95 kg Gregoria Ralph APRN-ORGANIZATIONAL DEVELOPMENT MANAGER Work Phone: [facility] 08-15-2023 13:33-0500 Heart rate 81 /min Gregoria Ralph APRN-ORGANIZATIONAL DEVELOPMENT MANAGER Work Phone: [facility] 08-15-2023 13:33-0500 SaO2% (BldA) [Mass fraction] 95 % Gregoria Ralph APRN-ORGANIZATIONAL DEVELOPMENT MANAGER Work Phone: [facility] 07-30-2023 11:16-0500 Body height 177.8 cm Ashli Petznick DO Work Phone: [facility] [email or web address] 07-30-2023 11:16-0500 Body mass index (BMI) [Ratio] 36.16 kg/m2 Ashli Petznick DO Work Phone: [facility] [email or web address] 07-30-2023 11:16-0500 Body temperature 98.01 [degF] Ashli Petznick DO Work Phone: [facility] [email or web address] 07-30-2023 11:16-0500 Body weight 114.31 kg Ashli Petznick DO Work Phone: [facility] [email or web address] 07-30-2023 11:16-0500 Diastolic blood pressure 62 mm[Hg] Ashli Petznick DO Work Phone: [facility] [email or web address] 07-30-2023 11:16-0500 Heart rate 66 /min Ashli Petznick DO Work Phone: [facility] [email or web address] 07-30-2023 11:16-0500 SaO2% (BldA) [Mass fraction] 97 % Ashli Petznick DO Work Phone: [facility] 07-30-2023 11:16-0500 Systolic blood pressure 116 mm[Hg] Ashli Petznick DO Work Phone: [facility] 07-17-2023 09:22-0500 Diastolic blood pressure 73 mm[Hg] MD Dank Campo Work Phone: [facility] 07-17-2023 09:22-0500 Heart rate 70 /min MD Dank Campo Work Phone: [facility] 07-17-2023 09:22-0500 Respiratory rate 18 /min MD Dank Campo Work Phone: [facility] 07-17-2023 09:22-0500 SaO2% (BldA) [Mass fraction] 97 % MD Dank Campo Work Phone: [facility] 07-17-2023 09:22-0500 Systolic blood pressure 173 mm[Hg] MD Dank Campo Work Phone: [facility] 07-17-2023 09:20-0500 Body height 177.8 cm MD Dank Campo Work Phone: [facility] 07-17-2023 09:20-0500 Body weight 111.13 kg MD Dank Campo Work Phone: [facility] 04-27-2023 12:40-0500 Diastolic blood pressure 68 mm[Hg] MD Dank Campo Work Phone: [facility] 04-27-2023 12:40-0500 Heart rate 75 /min MD Dank Campo Work Phone: [facility] 04-27-2023 12:40-0500 Respiratory rate 16 /min MD Dank Campo Work Phone: [facility] 04-27-2023 12:40-0500 SaO2% (BldA) [Mass fraction] 97 % MD Dank Campo Work Phone: [facility] 04-27-2023 12:40-0500 Systolic blood pressure 110 mm[Hg] MD Dank Campo Work Phone: [facility] 04-27-2023 10:29-0500 Body height 177.8 cm MD Dank Campo Work Phone: [facility] 04-27-2023 10:29-0500 Body weight 113.39 kg MD Dank Campo Work Phone: [facility] 04-10-2023 14:00-0400 Body height 177.8 cm Imad Asaad Other [employer] [facility] [employer] Other 04-10-2023 14:00-0400 Body mass index (BMI) [Ratio] 36.3 kg/m2 Imad Asaad Other [employer] Other 04-10-2023 14:00-0400 Body weight 114.76 kg Imad Asaad Other [employer] Other 04-10-2023 14:00-0400 Diastolic blood pressure 68 mm[Hg] Imad Asaad Other [employer] Other 04-10-2023 14:00-0400 Systolic blood pressure 113 mm[Hg] Imad Asaad Other [employer] Other 02-12-2023 09:46-0400 Blood Pressure Location Peterson PETERSEN [facility] 02-12-2023 09:46-0400 Diastolic blood pressure 90 mm[Hg] Peterson PETERSEN [facility] 02-12-2023 09:46-0400 Heart rate 68 /min Peterson PETERSEN [facility] 02-12-2023 09:46-0400 Respiratory rate 16 /min Peterson PETERSEN [facility] 02-12-2023 09:46-0400 Systolic blood pressure 138 mm[Hg] Peterson PETERSEN [facility] 07-24-2022 13:52-0500 Diastolic blood pressure 78 mm[Hg] MD Dank Campo Work Phone: [facility] 07-24-2022 13:52-0500 Heart rate 71 /min MD Dank Campo Work Phone: [facility] 07-24-2022 13:52-0500 Respiratory rate 16 /min MD Dank Campo Work Phone: [facility] 07-24-2022 13:52-0500 SaO2% (BldA) [Mass fraction] 96 % MD Dank Campo Work Phone: [facility] 07-24-2022 13:52-0500 Systolic blood pressure 136 mm[Hg] MD Dank Campo Work Phone: [facility] 07-24-2022 12:29-0500 Body height 177.8 cm MD Dank Campo Work Phone: [facility] 07-24-2022 12:29-0500 Body temperature 98 [degF] MD Dank Campo Work Phone: [facility] 07-24-2022 12:29-0500 Body weight 115.66 kg MD Dank Campo Work Phone: [facility] 07-20-2022 10:00-0500 Body height 177.8 cm Imad Asaad Other [employer] Other 07-20-2022 10:00-0500 Body mass index (BMI) [Ratio] 36.73 kg/m2 Imad Asaad Other [employer] Other 07-20-2022 10:00-0500 Body weight 116.12 kg Imad Asaad Other [employer] Other 07-20-2022 10:00-0500 Diastolic blood pressure 96 mm[Hg] Imad Asaad Other [employer] Other 07-20-2022 10:00-0500 Systolic blood pressure 170 mm[Hg] Imad Asaad Other [employer] Other 02-03-2022 08:29-0400 Blood Pressure Location Peterson PETERSEN [facility] 02-03-2022 08:29-0400 Diastolic blood pressure 88 mm[Hg] Peterson PETERSEN [facility] 02-03-2022 08:29-0400 Heart rate 75 /min Peterson PETERSEN [facility] [employer] 02-03-2022 08:29-0400 Respiratory rate 16 /min Peterson PETERSEN [facility] [email or web address] 02-03-2022 08:29-0400 Systolic blood pressure 138 mm[Hg] Peterson PETERSEN [facility] [employer] Encounters Encounter Date Encounter Type Care Provider Facility Start: 02-04-2024 ambulatory Peterson Wells ty:[facility] Start: 01-28-2024 ambulatory Peterson Graciela NICOLA Wells ty:[facility] Start: 12-13-2023 End: 12-15-2023 ambulatory GREGORIA kenny Start: 12-05-2023 End: 12-05-2023 ambulatory DANK CAMPO Not Available Start: 11-22-2023 End: 11-22-2023 ambulatory DEXTER A RUSHER Not Available Start: 11-14-2023 End: 11-14-2023 ambulatory DANK CAMPO Not Available Start: 11-05-2023 End: 11-06-2023 ambulatory Roma Lopez MD Facility: [facility] Start: 10-31-2023 End: 10-31-2023 ambulatory DEXTER A LAST Not Available Start: 10-30-2023 End: 10-30-2023 ambulatory Dank Campo Facility:[facility] Start: 10-30-2023 End: 10-30-2023 ambulatory ASHLI ROSS Not Available Start: 10-17-2023 End: 10-17-2023 ambulatory DEXTER A LAST Not Available Start: 10-15-2023 End: 10-16-2023 ambulatory Roma Lopez MD Facility: [facility] Start: 10-11-2023 End: 10-11-2023 ambulatory DANK CAMPO Not Available Start: 10-09-2023 End: 10-09-2023 ambulatory JYOTI ROTH Not Available Start: 10-01-2023 End: 10-02-2023 ambulatory Roma Lopez MD Facility: [facility] Start: 09-27-2023 End: 09-27-2023 ambulatory DEXTER A RUSHER Not Available Start: 09-05-2023 End: 09-05-2023 ambulatory DEXTER A RUSHER Not Available Start: 08-29-2023 End: 08-29-2023 ambulatory DANK CAMPO Not Available Start: 08-27-2023 Telephone encounter [facility] Start: 08-23-2023 End: 08-24-2023 ambulatory [facility] Lois kenny Start: 08-22-2023 End: 08-22-2023 ambulatory Dank Campo Facility:[facility] Start: 08-20-2023 End: 08-20-2023 ambulatory Dank Campo Facility:[facility] Start: 08-17-2023 Telephone encounter Gregoria Corrie shields COMPOUNDER [employer]-ORGANIZATIONAL DEVELOPMENT MANAGER Work Phone: [facility] [place] [facility] - Sleep Disorders Comment on above: Sleep Lab (CPAP) Start: 08-15-2023 End: 08-15-[address] [facility] Start: 08-15-2023 End: 08-15-2023 Office outpatient visit 25 minutes Gregoria [facility] COMPOUNDER [employer]-ORGANIZATIONAL DEVELOPMENT MANAGER [facility] Comment on above: Personal history of tobacco use, presenting hazards to health (Primary Dx); Obstructive sleep apnea syndrome; CSA (central sleep apnea) Start: 08-09-2023 End: 08-09-2023 Patient encounter procedure MD Dank Campo Work Phone: [facility] Work Phone: Start: 08-09-2023 End: 08-09-2023 ambulatory MD Dank Campo Work Phone: [facility] Work Phone: Start: 08-09-2023 End: 08-09-2023 ambulatory DEXTER KRISHNAMURTHY Not Available Start: 08-02-2023 Telephone encounter Aliza whaley [facility] Start: 08-01-2023 Chart abstracting Jr. Johanne Hdez DO Work Phone: [facility] Start: 08-01-2023 End: 08-01-2023 ambulatory JOHANNE MURILLO Not Available Start: 07-30-2023 End: 07-30-2023 Office outpatient visit 25 minutes Ashli Ross DO Work Phone: [phone] Comment on above: Class 2 severe obesi ty due to excess calories with serious comorbidity and body mass index (BMI) of 36.0 to 36.9 in adult ([facility]) (Primary Dx); Type 2 diabetes mellitus with diabetic polyneuropathy, with long-term current use of insulin ([facility]) Start: 07-30-2023 End: 07-30-2023 ambulatory ASHLI ROSS Not Available Start: 07-24-2023 End: 07-24-2023 Patient encounter procedure MD Dank Campo Work Phone: [facility]-X[facility] [place] Work Phone: Start: 07-24-2023 End: 07-24-2023 ambulatory Edd Holden Facility:[facility] Start: 07-17-2023 End: 07-17-2023 Patient encounter procedure MD Dank Campo Work Phone: [facility] [place] Work Phone: Start: 07-17-2023 End: 07-17-2023 ambulatory MD Dank Campo Work Phone: [facility] Work Phone: Start: 06-26-2023 End: 06-26-2023 ambulatory MD Dank Campo Work Phone: [facility] Work Phone: Start: 06-26-2023 End: 06-26-2023 Patient encounter procedure MD Dank Campo Work Phone: [facility] [address] Work Phone: Start: 06-07-2023 End: 06-07-2023 ambulatory DANK CAMPO Not Available Start: 05-14-2023 End: 05-14-2023 ambulatory EDD HOLDEN Not Available Start: 05-09-2023 End: 05-09-2023 ambulatory DEXTER KRISHNAMURTHY Not Available Start: 05-04-2023 End: 05-04-2023 ambulatory ASHLI ROSS Not Available Start: 05-02-2023 End: 05-02-2023 ambulatory DEXTER KRISHNAMURTHY Not Available Start: 04-30-2023 End: 04-30-2023 ambulatory EDD Damaris ADINA Not Available Start: 04-27-2023 End: 04-27-2023 Admission to same day surgery center MD Dank Campo Work Phone: [facility] Work Phone: Start: 04-27-2023 End: 04-27-2023 ambulatory MD Dank Campo Work Phone: [facility] Work Phone: Start: 04-10-2023 End: 04-10-2023 ambulatory Imad Asaad Other [facility] Other Start: 04-10-2023 Office outpatient ne w 45 minutes Imad Asaad [facility] Start: 03-20-2023 End: 03-20-2023 ambulatory Imad Asaad Other [facility] Other Start: 03-20-2023 Telephone encounter Imad Asaad [facility] Start: 02-12-2023 End: 02-12-2023 ambulatory Peterson PETERSEN Facility:[facility] Start: 02-12-2023 End: 02-12-2023 Patient encounter procedure Peterson PETERSEN [facility] Start: 02-06-2023 End: 02-06-2023 Lab Drop off ROSALVA MURO [facility] Start: 02-06-2023 End: 02-06-2023 ambulatory ZEINAB MURO Facility:[facility] Start: 02-06-2023 End: 02-06-2023 Patient encounter procedure DEJUAN PETERSEN [facility] Start: 10-17-2022 End: 10-18-[address] DANK CAMPO Facility:[facility] Start: 09-20-2022 End: 09-20-2022 ambulatory Imad Asaad Other [facility] Other Start: 09-20-2022 Telephone encounter Imad Asaad [facility] Start: 09-14-2022 End: 09-14-[address] DANK CAMPO Facility:[facility] Start: 09-12-2022 End: 09-13-[address] DANK CAMPO Facility:[facility] Start: 07-24-2022 Telephone encounter Imad Asaad [facility] Start: 07-24-2022 End: 07-24-2022 Admission to same day surgery center MD Dank Campo Work Phone: [facility] Work Phone: Start: 07-24-2022 End: 07-24-2022 ambulatory MD Dank Campo Work Phone: [facility] Work Phone: Start: 07-20-2022 End: 07-20-2022 ambulatory Imad Asaad Other [facility] Other Start: 07-20-2022 Patient encounter procedure Imad Asaad [facility] Start: 05-10-2022 End: 05-11-[address] DANK CAMPO Facility:[facility] Start: 04-14-2022 End: 04-15-[address] SORIN SHORE Facility:[facility] Start: 02-03-2022 End: 02-03-2022 Patient encounter procedure Peterson PETERSEN [facility] Start: 01-30-2022 End: 01-31-2022 ambulatory MR REBECCA [...] 04-27-2033 Screening for malignant neoplasm of colon [facility] Start: 01-20-2031 DTaP,Tdap and Td Vaccines (3 - Td or Tdap) DTaP,Tdap and Td Vaccines (3 - Td or Tdap) [facility] Start: 08-15-2024 Adult BMI Screening Adult BMI Screening [facility] Start: 08-15-2024 Tobacco Screening Tobacco Screening [facility] Start: 02-25-2024 End: 02-25-2024 Patient encounter procedure 02/25/2024 10:30 AM EDT [facility] [address] [place] [address] Hanna Laguerre MD [address] [place] [address] [facility] Start: 11-19-2023 End: 11-19-2023 Clinical Support 11/19/2023 8:00 PM EDT Clinical Support [facility] [address] [place] [address] [facility] Start: 10-29-2023 End: 10-29-2023 Patient encounter procedure 10/29/2023 1:15 PM EDT Office Visit [facility] [address] [place] [phone] Ashli Ross DO [address] [place] [address] [facility] [address] Start: 10-28-2023 Hemoglobin A1c measurement Diabetes: Hemoglobin A1C [facility] Start: 08-29-2023 End: 08-29-2023 Patient encounter procedure 08/29/2023 7:45 AM EDT Office Visit [facility] [address] [place] [address] Dank Campo MD [address] [place] [address] [facility] Start: 08-23-2023 End: 08-23-2023 Patient encounter procedure [facility] Start: 08-15-2023 End: 08-15-2024 CT Chest for screening WO contrast CT low dose lung screenin (3mo 6mo follow-up) Imaging Routine Personal history of tobacco use, presenting hazards to health Expected: 08/15/2023, Expires: 08/15/2024 [employer] Work Phone: Comment on above: Expected: 08/15/2023, Expires: Start: 08-15-2023 End: 08-15-2024 Echo complete W/O contrast Echo complete W/O contrast Echocardiography Routine Obstructive sleep apnea syndrome CSA (central sleep apnea) Expected: 08/15/2023, Expires: 08/15/2024 [facility] Comment on above: Expected: 08/15/2023, Expires: Start: 08-09-2023 End: 08-09-2023 Patient encounter procedure 08/09/2023 8:30 AM EST Office Visit [facility] [address] [place] [phone] Dexter Krishnamurthy, NELLIE [address] [place], [place] [id number] [facility] Start: 08-01-2023 End: 08-01-2023 Patient encounter procedure 08/01/2023 10:30 AM EST Office Visit [facility] [address] [place] [phone] Jr. Johanne Hdez, DO [address] [address] [facility] Start: 04-27-2023 [facility] Start: 04-11-2023 Administration of varicella zoster vaccine Zoster (Shingles) Vaccine (3 of 3) [facility] Start: 02-16-2023 COVID-19 Vaccine ( season) COVID-19 Vaccine ( season) [facility] Start: 02-16-2023 COVID-19 Vaccine ( season) COVID-19 Vaccine ( season) [facility] Start: 02-16-2023 Influenza vaccination Influenza Vaccine [facility] Start: 07-24-2022 [facility] Start: 04-15-2022 Adult BMI Screening Adult BMI Screening [facility] Start: 09-15-2020 Fall Risk Screening Fall Risk Screening [facility] Start: 09-15-1974 Urine screening for protein Diabetes: Urine Protein Screening [facility] Start: 09-15-1973 Adult BMI Follow Up Plan Adult BMI Follow Up Plan [facility] Start: 1967 Depression Screening Depression Screening [facility] Start: 1967 Tobacco Screening Tobacco Screening [facility] Start: 09-15-1965 Glaucoma screening Diabetes: Retinopathy Screening [facility] Start: 1955 Medicare Annual Wellness (AWV) Medicare Annual Wellness (AWV) [facility] Start: 1955 Screening for malignant neoplasm of colon [facility] Patient Education [facility] Work Phone: End: 08-15-2024 Polysomnography 4 or more parameters with PAP titration Polysomnography 4 or more parameters with PAP titration Sleep Center Routine Obstructive sleep apnea syndrome CSA (central sleep apnea) 1 Occurrences starting 08/15/2023 until 08/15/2024 [facility] Comment on above: 1 Occurrences starting 08/15/2023 until 08/15/2024 Immunizations Immunization Date Immunization Notes Care Provider Fa [facility] 04-22-2023 zoster vaccine recombinant Ashli Petznick DO Work Phone: [facility] 03-23-2023 RSV, recombinant, protein subunit RSVpreF, adjuvant reconstitu, 120mcg/0.5mL, PF (Arexvy) Ashli Petznick DO Work Phone: [facility] 02-14-2023 Influenza, Seasonal, Quadrivalent, Adjuvanted Ashli Petznick DO Work Phone: [facility] 02-14-2023 zoster vaccine recombinant Ashli Petznick DO Work Phone: [facility] 02-14-2023 influenza virus vaccine, unspecified formulation [facility] 02-14-2023 zoster vaccine, unspecified formulation [facility] 04-09-2022 COVID-19 mRNA Bivale nt Booster (Pfizer) MD Dank Campo Work Phone: [facility] 04-09-2022 Influenza, Seasonal, Quadrivalent, Adjuvanted Ashli Petznick DO Work Phone: [facility] 04-13-2021 COVID-19 mRNAAlfred (Pfizer) MD Dank Campo Work Phone: [facility] 02-22-2021 Influenza, Seasonal, Quadrivalent, Adjuvanted Ashli Petznick DO Work Phone: [facility] 02-22-2021 pneumococcal polysaccharide vaccine, 23 valent Ashli Petznick DO Work Phone: [facility] 01-20-2021 tetanus and diphther ia toxoids, adsorbed, preservative free, for adult use (5 Lf of tetanus toxoid and 2 Lf of diphtheria toxoid) [employer] Other [facility] [employer] Other 01-17-2021 influenza, seasonal, injectable Ashli Petznick DO Work Phone: [facility] 01-17-2021 Moderna SARS-CoV-2 Vaccination Ashli Petznick DO Work Phone: [facility] 10-16-2020 SARS-CoV-2 (COVID-19 ) mRNA BNT-162b2 vax Peterson PETERSEN [facility] 10-01-2020 COVID-19 Alfred Hightower (Pfizer) MD Dank Campo Work Phone: [facility] 09-08-2020 COVID-19 mRNAAlfred (Pfizer) MD Dank Campo Work Phone: [facility] 02-17-2020 influenza, injectabl e, quadrivalent, preservative free Ashli Petznick DO Work Phone: [facility] 02-09-2020 influenza, high dose seasonal, preservative-free Ashli Petznick DO Work Phone: [facility] 03-15-2019 influenza, injectabl e, quadrivalent, preservative free Ashli Petznick DO Work Phone: [facility] 02-25-2018 influenza, injectabl e, quadrivalent, preservative free Ashli Petznick DO Work Phone: [facility] 05-30-2017 pneumococcal conjuga te vaccine, 13 valent Ashli Petznick DO Work Phone: [facility] 05-30-2017 pneumococcal polysaccharide vaccine, 23 valent Ashli Petznick DO Work Phone: [facility] 03-02-2017 influenza nasal, unspecified formulation Ashli Petznick DO Work Phone: [facility] 03-02-2017 influenza virus vaccine, unspecified formulation [facility] 03-02-2017 influenza, injectabl e, quadrivalent, preservative free Ashli Petznick DO Work Phone: [facility] 03-05-2016 influenza, injectabl e, quadrivalent, preservative free Ashli Petznick DO Work Phone: [facility] 03-05-2016 influenza, seasonal, injectable Ashli Petznick DO Work Phone: [facility] 02-18-2015 zoster vaccine, live Ashli Petznick DO Work Phone: [facility] 02-01-2015 influenza, seasonal, injectable Ashli Petznick DO Work Phone: [facility] 08-18-2014 tetanus toxoid, redu inocencio diphtheria toxoid, and acellular pertussis vaccine, adsorbed Ashli Petznick DO Work Phone: [facility] 08-04-2013 pneumococcal conjuga te vaccine, 13 valent Ashli Petznick DO Work Phone: [facility] Payers Date Payer Category Payer Self-pay [id number] 2023 Unknown [id number] 2020 Medicare [id number] 2013 Unknown [id number]. 1.13.424.2.7.3.678 [id number] 1959 Medicare [id number] 1955 Unknown [id number] 2.16.840.1.876547.3.579.2.593 1955 Unknown [id number] 2.16.840.1.535684.3.579.2.593 1955 Unknown [id number] 2.16.840.1.718300.3.579.2.593 1955 Unknown [id number] 2.16.840.1.699221.3.579.2.593 1955 Unknown [id number] 2.16.840.1.685028.3.579.2.593 1955 Unknown [id number] 2.16.840.1.625390.3.579.2.593 1955 Unknown [id number] 2.16.840.1.135514.3.579.2.593 1955 Unknown [id number] 2.16.840.1.373881.3.579.2.593 1955 Unknown [id number] 2.16.840.1.378331.3.579.2.1286 1955 Unknown [id number] 2.16.840.1.702680.3.579.2.1286 1955 Unknown [id number] 2.16.840.1.484473.3.579.2.1286 1955 Unknown [id number] 2.16.840.1.309447.3.579.2.196 1955 Unknown [id number] 2.16.840.1.246372.3.579.2.196 1955 Unknown [id number] 2.16.840.1.157115.3.579.2.196 1955 Unknown [id number] 2.16.840.1.215823.3.579.2.1258 1955 Unknown [id number] 2.16.840.1.247495.3.579.2.1258 1955 Unknown [id number] 2.16.840.1.504952.3.579.2.1258 1955 Unknown [id number] 2.16.840.1.068343.3.579.2.125 1955 Unknown [id number] 2.16.840.1.169092.3.579.2.1258 1955 Unknown [id number] 2.16.840.1.900044.3.579.2.1258 1955 Unknown [id number] 2.16.840.1.048467.3.579.2.1258 1955 Unknown [id number] 2.16.840.1.008115.3.579.2.1258 1955 Unknown [id number] 2.16.840.1.859876.3.579.2.1258 1955 Unknown [id number] 2.16.840.1.339468.3.579.2.1258 1955 Unknown [id number] 2.16.840.1.390944.3.579.2.1258 1955 Unknown [id number] 2.16.840.1.976346.3.579.2.1258 1955 Unknown [id number] 2.16.840.1.315165.3.579.2.1258 1955 Unknown [id number] 2.16.840.1.603977.3.579.2.1258 1955 Unknown [id number] 2.16.840.1.127668.3.579.2.1258 1955 Unknown [id number] 2.16.840.1.129132.3.579.2.1259 1955 Unknown [id number] 2.16.840.1.403130.3.579.2.1259 1955 Unknown [id number] 2.16.840.1.831370.3.579.2.1259 1955 Unknown [id number] 2.16.840.1.563417.3.579.2.1259 1955 Unknown [id number] 2.16.840.1.996289.3.579.2.1259 1955 Unknown [id number] 2.16.840.1.917753.3.579.2.9 1955 Unknown [id number] 2.16.840.1.512087.3.579.2.1286 1955 Unknown [id number] 2.16.840.1.218622.3.579.2.727 1955 Unknown [id number] 2.16.840.1.816656.3.579.2.727 1955 Unknown [id number] 2.16.840.1.156461.3.579.2.727 1955 Unknown [id number] 2.16.840.1.818310.3.579.2.727 1955 Unknown [id number] 2.16.840.1.382827.3.579.2.727 Medicare Medicare [id number] Unknown [address] [address] BC/BS [id number] Unknown Regular Insurance [id number] Unknown [id number] 2.16.840.1.921129.3.579.2.531 Unknown [id number] 2.16.840.1.343651.3.579.2.531 Unknown [id number] 2.16.840.1.498310.3.579.2.531 Unknown [id number] 2.16.840.1.321202.3.579.2.531 Unknown [id number] 2.16.840.1.744305.3.579.2.531 Unknown [id number] 2.16.840.1.770596.3.579.2.531 Unknown [id number] 2.16.840.1.879018.3.579.2.531 Worker's Compensation [employer] [id number] Worker's Compensation [id number] Social History Date Type Detail Facility Start: 02-03-2022 End: 08-15-2023 Ex-smoker (finding) [facility] Start: 06-29-2020 End: 01-09-2023 Male [facility] Start: 1955 Sex Assigned At Male F [facility] Start: 06-18-1974 End: 2021 History of tobacco [...] to any clubs or organizations such as baptist groups, unions, fraternal or athletic groups, or [...] [facility] Start: 12-22-2020 Tobacco smoking stat [facility] Smokes tobacco daily [facility] [facility] Start: 04-15-2021 End: 08-16-2023 Alcohol intake Current non-drinker of alcohol (finding) [facility] Medical Equipment Procedure Code Equipment Code Equipment Origin al Text Equipment Identifier Dates EGD (esophagogastroduod enoscopy) Video capsule endoscopy system [id number] FDA Start: 08-18-2020 USE DIRECTED FOUR TIMES DAILY [id number] Start: 10-09-2022 use to test BLOO D SUGAR THREE TIMES DAILY [id number] Start: 09-19-2022 use to test BLOO D SUGAR THREE TIMES DAILY [id number] Start: 11-01-2022 Teja 4.75 - Sna - [id number] Start: 12-10-2017 Incv/Teja 4.75 Use [id number] - Sna - [id number] Start: 07-19-2020 Goals Date Patient Goal Desired Activity /State Personal health goal Comment on above: Formatting of this n ote might be different from the original. Evaluation of progress towards goal: Home self care with childrens support Functional Status Date Assessment Result Facility 02-12-2023 Functional Status N/A [facility] 02-03-2022 N/A [facility] Clinical Notes 11-04-2020 to 08-27-2023 Telephone Encounter [...] for titration appt [facility] Telephone encounter Note ----- Message from SONNY Denis sent at 08/24/2023 10:25 AM EST ----- EF >45% ok for ASV [facility]-27[facility]23 Telephone encounter Note Noted below in sleep lab encounter and on appt desk for techs for titration appt [facility]-17[facility]2023 Miscellaneous Notes 08/15 received CPAP order 08/16 Scheduled CPAP at [facility] 6 Confirmation mailed and emailed [employer] Medicare CPAP order and 08/15 Kregel notes in epic With TCO2 monitoring. Please obtain baseline in supine position. Starting pressure IPAP25 EPAP10 PS 5 notes CSA on last download plans for Echo prior to titration [facility] Telephone encounter Note 08/15 received CPAP order 08/16 Scheduled CPAP at [facility] 11/18 Confirmation mailed and emailed [employer] Medicare CPAP order and 08/15 Kregel notes in epic With TCO2 monitoring. Please obtain baseline in supine position. Starting pressure IPAP25 EPAP10 PS 5 notes CSA on last download plans for Echo prior to titration [facility] History of Presen t illness Narrative [...] humidifier. Cleaning supplies with soap and water. [place] Sleepiness Scale: Sitting and Reading: (!) Moderate [...] Anemia Unknown Arthritis Benign prostatic hyperplasia Cancer ([facility]) PROSTATE COPD (chronic obstructive pulmonary disease) ([facility]) Unknown Diabetes mellitus type 2, controlled ([facility]) GERD (gastroesophageal reflux disease) History of placement [...] . GERD HTN Tobacco Dependency- Normal PFT 2019 Alpha one- MM History of Sepsis Legionella pneumonia December 2018 Plan: Discussed diagnosis, its evaluation, treatment and usual course. All questions answered. Educational material distributed. Orders Placed This Encounter Procedures CT low dose lung screenin (3mo 6mo follow-up) Standing Status: Future Standing Expiration Date: 08/15/2024 Order Specific Question: [facility] required diagnosis: Answer: Personal history of [...] Order Specific Question: Release to patient via [employer]? Answer: Immediate [1] Echo complete W/O contrast Standing Status: Future Standing Expiration Date: 08/15/2024 Order Specific Question: Release to patient via [employer]? Answer: Immediate [1] Polysomnography 4 or more parameters with PAP titration Standing Status: Future Standing Expiration Date: 08/15/2024 Scheduling Instructions: With TCO2 monitoring. Please obtain baseline in supine position. Starting pressure IPAP25 EPAP10 PS 5 notes CSA on last download plans for Echo prior to titration Order Specific Question: Follow Up Answer: [facility] Sleep Medicine to read and follow patient. [...] not to drive if sleepy, and to cable puller if sleepiness occurs while driving. Above [...] that have escaped final proofreading. [facility] Office: [phone] 2:57 PM on 08/15/2023 CC: MD Greogria GONZALEZ APRN-CNP 08/16/23 1430 documented in this encounter [facility] 08-15-2023 Instructions SONNY Denis - 08/15/2023 1:15 PM EST If you re looking for general health and wellness resources, please visit [email or web address]. documented in this encounter [facility] 08-02-2023 Miscellaneous Notes Received sleep referral from Valeria Mckeon NP. Pt is already an established pt and last saw SK in 2020- was recommended to follow up with KW. However he was a no show for his last 2 appt with our office. Chat to Tahmina to advise if still to schedule appt. documented in this encounter [facility] [employer] 08-02-2023 Telephone encounter Note Received sleep referral from Valeria Mckeon NP. Pt is already an established pt and last saw SK in 2020- was recommended to follow up with KW. However he was a no show for his last 2 appt with our office. Chat to Tahmina to advise if still to schedule appt. [facility] History of Presen t illness Narrative Associated Problem(s): Type 2 diabetes mellitus with diabetic polyneuropathy, with long-term current use of insulin ([facility]) During the appointment today all pertinent labs, [...] Breakfast Lunch Dinner Snacks Drinks Premade meal ([place] and dressing) (Mac and cheese) Protein shake [...] polyneuropathy, with long-term current use of insulin ([facility]) During the appointment today all pertinent labs, [...] (BMI) of 36.0 to 36.9 in adult ([facility]) - Primary Follow up in about 3 [...] ( MAX 100 UNITS A DAY) LANCETS (On-Ramp WirelessTOUCH DELICA PLUS [id number]) MISC use to test BLOOD SUGAR THREE [...] ER 50 mg tablet,extended release 24 hr On-Ramp WirelessTOUCH ULTRA TEST STRIP use to test BLOOD [...] mg) before bedtime. documented in this encounter [facility] 04-27-2023 Procedure [facility] 04-10-2023 Evaluation note Encounter Date Diagnosis Assessment Notes Mar, GERD (gastroesophage al reflux disease) (ICD-10 - K21.9) The patient continues to complain of ongoing regurgitation. He is taking Lansoprazole 30 mg dialy & we will increase this to 30 mg bid. Mar, Hemorrhoids (ICD-10 - K64.9) Mar, Alternating constipation and diarrhea (ICD-10 - R19.8) [facility] Other 10-03-2023 Evaluation note* Encounter Date Diagnosis Assessment Notes Treatment Notes Treatment Clinical Notes Mar, Gastroesophageal ref lux disease with esophagitis (ICD-10 - K21.0) [facility] Other 08-28-2023 Hospital Discharge instructions Patient Education [...] under a microscope. This is called the Lincoln score and the total score can range from 6 10, indicating how likely it is that the cancer will spread (metastasize) to other parts of the body. The higher the score, the greater thelikelihood that the cancer will spread. Lincoln 6 or lower: This indicates that the cancer cells look similar to normal prostate cells (well differentiated). Rosalina 7: This indicates that the cancer cells look somewhat similar to normal prostate cells (moderately differentiated). Lincoln 8, 9, or 10: This indicates that [...] stress of having cancer. General instructions Take gohm-qka-cpozoms and prescription medicines only as told by your health care provider. If you have to go to the hospital, notify your cancer specialist (oncologist). Keep all follow-up visits. This is important. Where to find more information [place] [employer]: www.cancer.org [place] [employer] of Clinical Oncology: www.cancer.net National Cancer [place]: www.cancer.gov Contact a health care provider if: [...] provider. Document Revised: 08/31/2021 Document Reviewed: 08/31/2021 [employer] Patient Education 2022 [employer]. Follow Up Care 02/03/2022 09:06:37 With:NICOLA RAYMUNDO, Peterson Owens, URL Address: [facility] [address] , [place] [phone] When: Unknown Comments:1 yr w/ PSA [facility] 04-05-2023 Evaluation note* Encounter Date Diagnosis Assessment Notes Treatment Notes Treatment Clinical Notes Sep, Gastroesophageal ref lux disease with esophagitis (ICD-10 - K21.0) [facility] Other [facility]-06[facility]23 [facility] Evaluation note* Encounter Date Diagnosis Assessment Notes Treatment Notes Treatment Clinical Notes Jul, Diarrhea (ICD-10 - R19.7) Jul, GERD (gastroesophageal reflux disease) (ICD-10 - K21.9) Jul, Hemorrhoids (ICD-10 - K64.9) PATIENT TO START ANUSOL CREAM USE SITZ BATH NEEDED Jul, Dysphagia (ICD-10 - R13.10) [facility] Other 10-28-2022 NotePROCEDURE: XR FOOT RT MIN 3 VIEWS COMPARISON: None. HISTORY: Pain in right foot FINDINGS: BONES:No acute fracture or dislocation. Persistent hammertoe deformities. Moderate hallux valgus. 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 Bulky enthesopathic spurring of the calcaneus SOFT TISSUES:Negative. No visible soft tissue swelling. EFFUSION:None visible. OTHER: Negative. IMPRESSION: Degenerative changes Electronically authenticated by: SORIN SHORE Date: 2022-04-14 18:01[facility]08-19-2022 Hospital Discharge instructions Patient Education 02/03/2022 [...] urethra. Follow these instructions at home: Take axvn-waq-yraszyk and prescription medicines only as told by [...] 06/04/2006 Document Revised: 04/29/2019 Document Reviewed: 07/09/2017 [employer] Patient Education 2019 [employer]. Follow Up Care 08/05/2021 10:59:30 With:NICOLA RAYMUNDO, Peterson Owens, MICHELEL Address: [facility] [address] [place] [address]- When:1 year Comments:W/ PSA [facility] [place] 08-17-2021 NoteHNO ID: [id number] Author: Fawad Diaz MD Service: ? Author [...] Fawad Diaz MD cc: Dank Campo MD ([facility]) [address] [place] [address] Dr. Petersen Portions of the above note extracted and edited from previous visit as well as active information included in the EMR.[facility] 11-04-2020 NoteHNO ID: [id number] Author: Fawad Diaz MD Service: ? Author Type: Physician Type: Progress Notes Filed: 11/04/2020 9:44 AM Note Text: Radiation Oncology - Follow Up Note PATIENT NAME: Milad Seymour PATIENT DIAGNOSIS: DIAGNOSIS: Prostate adenocarcinoma, initial PSA 14.65, biopsy Lincoln score 3 + 3 = 6 (grade [...] Fawad Diaz MD cc: Dank Campo MD (Dr) [address] [place] [address] Dr. [facility]and[facility] + Plan note Future Appointments Appointment Date:02/12/2023 09:15:00 AM Scheduled Provider:Peterson PETERSEN MD Location:[facility] Appointment Type:URO Office Visit Diagnostic Tests Pending * PSA Total 02/03/22 [facility] evaluation + Plan note Future Appointments Appointment Date:02/12/2023 09:15:00 AM Scheduled Provider:Peterson PETERSEN MD Location:[facility] Appointment Type:URO Office Visit [facility] evaluation + Plan note Future Appointments Appointment Date:02/15/2024 08:15:00 AM Scheduled Provider:Peterson PETERSEN MD Location:[facility] Appointment Type:URO Office Visit Diagnostic Tests Pending * PSA Total 02/12/23 [facility] evaluation noteNo assessment information available [facility] [employer] Work Phone: Evaluation noteNo InformationNort [employer] Other Evaluation note* Diagnosis Class 2 severe obesity due to excess calories with serious comorbidity and body mass index (BMI) of 36.0 to 36.9 in adult ([facility])- Primary Type 2 diabetes mellitus with diabetic polyneuropathy, with long-term current use of insulin ([facility]) documented [facility] encounter [facility] Diagnosis Onset Date Resolution Status H/O rotator cuff surgery acu te [facility] Work Phone: Evaluation note* Diagnosis Personal history of tobacco use, presenting hazards to health- Primary Obstructive sleep apnea syndrome Obstructive sleep apnea (adult) (pediatric) CSA (central sleep apnea) Unspecified sleep apnea documented [facility] this [facility] Author Kike Bernal [facility] July 24, 2022 1:05pm Note Date/Time July 24, 2022 1 :05pm [facility] [address] [place] [address] Gastroenterology H&P Signed Patient: Milad Seymour MR#: [id number] : 1955 Acct:[id number] Age/Sex: 66 / M Adm Date: 3 Loc: Room: Type: [facility] Attending Dr: Kike Bernal MD Copies to: [...] is an appropriate candidate for the procedure. Imad Asaad, M.D. Documented By: Kike Bernal MD 07/24/22 1304 Signed By: <Electronically signed by Kike Bernal MD> 07/24/22 4546 [facility] Work Phone: History and physical note Author Kike Bernal [facility] April 27, 2023 11:41am Note Date/Time April 27, 2023 11:41am [facility] [address] [place] [address] Gastroenterology H&P Signed Patient: Milad Seymour MR#: [id number] : 1955 Acct:[id number] Age/Sex: 67 / M Adm Date: 3 Loc: Room: Type: [facility] Attending Dr: Kike Bernal MD Copies to: [...] signed by Kike Bernal MD> 04/27/23 1141 [facility] Work Phone: History general Narrative - Reported* [...] History none in the last year 20 [facility] Other Hospital course Narrative No data available for this section [facility] Hospital Discharge instructions Additional Instructions DISCHARGE INSTRUCTIONS [...] problems. -Follow up with PCP. -Office number [phone]. [facility] Work Phone: Hospital Discharge instructions No data available for this section [facility] Hospital Discharge instructions Additional Instructions DISCHARGE INSTRUCTIONS [...] in the office as scheduled -Office number [phone]. [facility] Work Phone: InstructionsNot on filedocumented in this encounter [employer] SystemInstructionsNot on filedocumented in this encounter [facility] SystemProgress note No data available for this section [facility] Summary Purpose Family History No Family History [...] more parameters with PAP titration Gregoria Ralph, COMPOUNDER FLAVORINGS-ORGANIZATIONAL DEVELOPMENT MANAGER [address], [address] [place] [address] Referral ID Status Reason Start Date Expiration Date V isits Requested Visits Authorized [id number] Pending Review 08/15/2023 08/14/2024 1 1 Specialty Diagnoses / Procedures Referred By Contac t Referred To Contact Diagnoses Obstructive sleep apnea syndrome CSA (central sleep apnea) Procedures Echo complete W/O contrast Gregoria Ralph, COMPOUNDER [employer]-ORGANIZATIONAL DEVELOPMENT MANAGER [address] [address] Phone: [phone] Referral ID Status Reason Start Date Expiration Date V isits Requested Visits Authorized [id number] Authorized 08/15/2023 11/12/2023 1 1 Specialty Diagnoses / Procedures Referred By Contac t Referred To Contact Radiology Diagnoses Personal history of tobacco use, presenting hazards to health Procedures CT low dose lung screenin (3mo 6mo follow-up) Gregoria Ralph, COMPOUNDER [employer]INGS-ORGANIZATIONAL DEVELOPMENT MANAGER [address] [address] Phone: [phone] Referral ID Status Reason Start Date Expiration Date V isits Requested Visits Authorized [id number] Authorized 08/16/2023 11/13/2023 1 1 Additional Source Comments (unrecognized sect ion and content) No Status Records FoundNo Status Records FoundNo Status Records FoundNo Status Records FoundNo Status Records FoundNo Status Records FoundNo Status Records FoundNo Status Records FoundNo Status Records Found INFORMATION SOURCE (unrecogn ized section and content) DATE CREATED AUTHOR 08/06/2021 [facility] DATE CREATED AUTHOR AUTHOR'S ORGANIZ ATION 10/24/2022 [facility] DATE CREATED AUTHOR AUTHOR'S ORGANIZ ATION 08/18/2023 [facility] DATE CREATED AUTHOR AUTHOR'S ORGANIZ ATION 08/24/[address] [facility] DATE CREATED AUTHOR AUTHOR'S ORGANIZ ATION 11/11/2023 [facility] DATE CREATED AUTHOR AUTHOR'S ORGANIZ ATION 11/20/2023 [facility] DATE CREATED AUTHOR AUTHOR'S ORGANIZ ATION 12/06/2023 [facility] DATE CREATED AUTHOR AUTHOR'S ORGANIZ ATION 12/15/2023 [facility] DATE CREATED AUTHOR AUTHOR'S ORGANIZ ATION 01/28/2024 Josh Steel [facility] Care Team (unrecognized sect ion and [...] July 17, 2023 End: July 17, 2023 Resident Advisor Relationship Specialty Start Date End Date Dank Campo MD [address] [place] [id number] PCP - General Family Medicine 07/25/23 Resident Advisor Relationship Specialty Start Date End Date Dank Campo MD [address] [place] [address] PCP - General Family Medicine 07/25/23 Resident Advisor Relationship Specialty Start Date End Date Dank Campo MD [address] [place] [address] PCP - General Family Medicine 12/10/17 Team Status: Inactive Member Role Status Dates Dank Campo MD Primary Care Provider Active S tart: July 24, 2023 End: July 24, 2023 Edd Holden , VALIDATION ANALYST-C Attending Provider Active Start: July 24, 2023 End: July 24, 2023 Team Status: Inactive Member Role Status Dates Dank Campo MD Primary Care Provide r, Attending Provider, Referring Provider Active Start: August 09, 2023 End: August 09, 2023 Resident Advisor Relationship Specialty Start Date End Date Dank Campo MD [address] [place] [address] PCP - General Family Medicine 12/10/17 Resident Advisor Relationship Specialty Start Date End Date Dank Campo MD [address] [place] [address] PCP - General Family Medicine 12/10/17 REASON FOR VISIT (unrecogniz ed section and content) Reason Comments Diabetes Reason Comments Sleep Apnea DME: [facility] Specialty Diagnoses / Procedures Referred By Anabel salinas Referred To Contact Pulmonary Medicine / Sleep Medicine Diagnoses Obstructive sleep apnea syndrome Jyoti Roth, COMPOUNDER F[employer]-ORGANIZATIONAL DEVELOPMENT MANAGER [address] [place] [id number] [facility] [address] [place] [address] [place] [address] Referral ID Status Reason Start Date Expiration Date Visits Requested Visits Authorized [id number] Pending Review Specialty Services Required 08/13/2023 08/12/2024 [...] BE BASED ON THE PRIMARY CLINICAL RECORDS. [facility] HospitalMyPermissions [facility]. provides no warranty or guarantee of the accuracy or completeness of information in this document.
[2024-01-28 13:14] LABS: Prostate Specific Antigen Dx 0.14 ng/mL (<=4.00)
== END 2024-01-28 11:30 | disposition home or self-care (01) ==
LOC: LAB 11:30
PROVIDERS: PCP Family Medicine; Visit Provider Urology
DX: C61 Malignant neoplasm of prostate (principal)
CPT/HCPCS: 36415; 84153

== ENCOUNTER 2024-02-28 08:55 | Outpatient (OUT) | payer MEDICARE, SELFPAY ==
--- OUTSIDE RECORDS SUMMARY | 2024-02-28 09:16 | XMS_ITS | CCD ---
Author Organization [facility] Care Team Providers Care Program/Music Director Name Role Phone DANK CAMPO Primary Care Physician MD Dank Campo Primary Care Provider [phone] MD Kike Bernal Attending Provider Asaad, Imad [...] NADEREGraciela, DR DANK Leon Primary Care Unavailable PICKRELL, DR SORIN Rodarte Consulting Unavailable NADERER, DR DANK Leon Admitting Unavailable NADERER, DR DANK Leon Attending Unavailable NADERER, DR DANK Leon Primary Care Unavailable FELIXEREGraciela, DR DANK Leon Consulting Unavailable MD Dank Campo Primary Care Provider [phone] MD Kike Bernal Attending Provider MD Dank Campo Attending Provider MD Dank Campo Attending Provider Alber RAYMUNDO, Dank Primary Care Provider Dank Campo MD Primary Care Provider [phone] MD Dank Campo Primary Care Provider [phone] KERRI Holden Attending Provider [phone] MD Dank Campo Referring Provider [phone] LOREE GREGORIA L Referring Unavailable NADERER, DANK Primary Care Unavailable KREMICA GREGORIA L Referring Unavailable NADERER, DANK Primary Care Unavailable Jessica RAYMUNDO, Roma Arteaga Attending Unavailable Jessica RAYMUNDO, Roma Arteaga Attending Unavailable Jessica RAYMUNDO, Roma Arteaga Attending Unavailable Naderer, Dank Primary Care Unavailable Naderer, Dank Attending Unavailable FelixereDank owens Admitting Unavailable Asaad, Imad Attending Unavailable Naderegraciela, Dank Primary Care Unavailable Asaad, Imad Admitting Unavailable Edd Holden Admitting Unavailable Edd Holden Attending Unavailable Naderer, Dank Primary Care Unavailable Naderer, Dank Primary Care Unavailable Asaad, Imad Admitting Unavailable Asaad, Imad Attending Unavailable Felixeregraciela, Dank Attending Unavailable Naderer, Dank Admitting Unavailable Naderer, Dank Primary Care Unavailable Naderer, Dank Attending Unavailable NadereDank owens Referring Unavailable Naderer, Dank Admitting Unavailable Naderer, Dank Primary Care Unavailable Naderer, Dank Primary Care Unavailable Jyoti Roth Admitting Unavailable RothJyoti smalls Attending Unavailable LOREE GREGORIA Corrie Referring Unavailable NADERER, DANK Primary Care Unavailable RUSDEXTER TATE Attending Unavailable PETKERLINE, ASHLI Scott Attending Unavailable ASHLI ROSS Attending Unavailable JR. JOON, JOHANNE Vidales Attending Unavaila ble DEXTER KRISHNAMURTHY Attending Unavailable NADERERDANK Referring Unavailable NADERER, DANK Attending Unavailable RUSHER, DEXTER Leon Attending Unavailable RUS, DEXTER Leon Attending Unavailable EDD HOLDEN Attending Unavailable RUS, DEXTER Leon Attending Unavailable JYOTI ROTH Attending Unavailable NADERER, DANK Attending Unavailable RUSHER, DEXTER Leon Attending Unavailable PETASHLI CHURCHILL Attending Unavailable LAST, DEXTER Leon Attending Unavailable EDD HOLDEN Attending Unavailable EDD HOLDEN Referring Unavailable DANK CAMPO Attending Unavailable LAST, DEXTER Leon Attending Unavailable ALBER, DANK Attending Unavailable ASHLI ROSS Attending Unavailable ALBER, DANK Attending Unavailable Peterson PETERSEN Attending Unavailable JINA, ROSALVA De Luna Attending Unavailable ROSALVA MURO Admitting Unavailable Peterson PETERSEN Attending Unavailable DEJUAN PETERSEN Attending Unavailable Peterson PETERSEN Attending Unavailable Peterson PETERSEN Attending Unavailable GREGORIA RALPH Attending Unavailable DANK CAMPO Referring Unavailable DANK CAMPO Primary Care Unavailable HANNA BUTCHER Attending Unavailable DANK CAMPO Referring Unavailable DANK CAMPO Primary Care Unavailable Allergies Allergy Classification Reported Allergen(s) Allergy Type Date of Onset Reaction(s) Facility (1 source) No Known Medication Allergies; 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: [No Known Medication Allergies] Propensity to adverse reactions (disorder) [facility] Medications Current Medications Medication Drug Class(es) Dates Sig (Normalized) Sig (Original) aspirin 81 mg delayed release oral tablet (15 sources) Platelet Aggregation Inhibitor, Nonsteroidal Anti-inflammatory Drug Start: 01-30-2019 take 1 mg by mouth once daily aspirin 81 mg Oral EC Tab mg tab(s), Oral, Daily, Refills(s) 0 Start Date: 01/28/21 Status: Ordered ASPIRIN 81 MG ch ewable tablet Chew 81 mg 1 (one) time each day at the same time. 0 Active Baclofen (20 sources) gamma-Aminobutyric Acid-ergic Agonist Start: 03-31-2019 baclofen Oral, TID, Refills(s) 0 Start Date: 03/31/19 Status: Ordered Start: 01-30-2019 End: 06-25-2024 take 20 mg by mouth three times daily Baclofen Active 20 MG PO Three times daily January 29, 2019 11:00pm celecoxib (20 sources) Nonsteroidal Anti-inflammatory Drug Start: 03-31-2019 celecoxib Oral, Refills(s) 0 Start Date: 03/31/19 Status: Ordered Start: 01-30-2019 take 1 capsule by mo [facility] twice daily celecoxib (CeleBREX) 200 MG capsule Indications: Lumbago with sciatica, right side TAKE 1 CAPSULE BY MOUTH TWICE DAILY 60 capsule 5 07/24/2023 Active Continuous Blood Gluc Sensor (Dexcom G7 Sensor) misc (4 sources) Start: 06-05-2023 End: 06-04-2024 Continuous Blood Gluc Sensor (Dexcom G7 Sensor) [facility] [place]ications: Type 2 diabetes mellitus with diabetic polyneuropathy, with long-term current use of insulin (CMS/[facility]) Inject 1 Device under the skin See administration instructions Change every 10 days 9 each 3 06/05/2023 06/04/2024 Active Continuous Blood Gluc Sensor (FreeStyle Cornelius 2 Sensor) misc (2 sources) Start: 05-23-2023 End: 07-30-2023 Continuous Blood Gluc Sensor (FreeStyle [place]ius 2 Sensor) [facility] [place]ications: Type 2 diabetes mellitus with diabetic polyneuropathy, with long-term current use of insulin (CMS/HCC) Use as directed 2 each 11 05/23/2023 07/30/2023 Discontinued (Therapy completed) cyclobenzaprine hydrochloride 10 mg oral tablet (1 source) Muscle Relaxant Start: 02-04-2024 take 1 tablet by mouth three times daily as needed for muscle spasms cyclobenzaprine 10 mg Tab 10 mg = 1 tab(s), Oral, TID, PRN for spasm, # 30 tab(s), Refills(s) 0 Start Date: 02/04/24 Status: Ordered diazePAM 5 mg oral tablet (4 sources) [...] DAILY FOR 7 DAYS 0 12/28/2022 Active FLUoxetine 20 mg oral capsule (1 source) Serotonin Reuptake Inhibitor Start: 02-04-2024 FLUoxetine 20 mg Cap 20 mg = 1 cap(s), Oral Start Date: 8/19/24 Status: Ordered fluticasone 0.05 mg/inh Nasal [place] (5 sources) Start: 07-28-2019 fluticasone 0.05 mg/inh Nasal [place] Nasal, Daily, Refill(s) 0 Start Date: 07/28/19 [...] polyneuropathy, with long-term current use of insulin (CMS/[facility]) Inject 60 Units under the skin at bedtime 30 mL 3 07/30/2023 Active 3 ml insulin lispro 100 unt/ml pen injector (14 sources) Insulin Analog Start: 06-05-2023 insulin lispro (HumaLOG) 100 UNIT/ML injection Indications: Type 2 diabetes mellitus with diabetic polyneuropathy, with long-term current use of insulin ([facility]) INJECT 8-15 UNITS BREAKFAST, 20 UNITS LUNCH AND 30 UNITS DINNER PLUS CORRECTIONS OF 1:30 > 150MG/DL ( MAX 100 UNITS A DAY) 90 mL 3 06/05/2023 Active Start: 04-27-2023 inject 1 dose by sub cutaneous injection once before mealtime Insulin Lispro Active 1 sliding scale dose SUBCUT 3x/Day before meals April 27, 2023 12:00am Start: 02-12-2023 Insulin Lispro KwikPen 100 units/mL injectable solution Refills(s) 0 Start Date: 02/12/23 Status: Ordered insulin lispro ( HumaLOG) 100 unit/mL insulin [...] Active loperamide hydrochloride 2 mg oral capsule (12 sources) Opioid Agonist Start: 02-04-2024 loperamide 2 m g Cap 2 mg = 1 cap(s), Oral Start Date: 02/04/24 Status: Ordered Start: 04-27-2023 take 2 mg by mouth [...] morning. 0 Active take 1 tablet by once daily metoprolol succinate XL (TOPROL-XL) 50 mg 24 hr tablet Take 50 mg by mouth daily. 0 Active potassium chloride 20 meq oral tablet (3 sources) Start: 02-12-2023 Potassium Chlo ride (Eqv-K-Tab) 20 [...] polyneuropathy, with long-term current use of insulin ([facility]) Inject 0.5 mg under the skin [...] MG PO Daily April 27, 2023 12:00am 1 ml tildrakizumab-asmn 100 mg/ml prefilled syringe (2 sources) Interleukin-23 Antagonist Start: 10-05-2023 inject 1 mg by subcutaneous injection every three months Ilumya 100 mg/mL subcutaneous solution mg, SubCutaneous, q3mo, Refills(s) 0 Start Date: 10/05/23 Status: Ordered Completed/Discontinued Medications Medication Drug Class(es) Dates Sig (Normalized) Sig (Original) [id number] 200 actuat albuterol 0.09 mg/actuat metered dose inhaler (2 sources) beta2-Adrenergic Agonist Start: 12-22-2020 End: 08-15-2023 take 2 puff(s) by inhalation every four hours as needed for wheezing albuterol (PROVENTIL HFA;VENTOLIN HFA) 90 mcg/actuation inhaler Indications: Chronic obstructive pulmonary disease, unspecified COPD type ([facility]) Inhale 2 puffs every 4 (four) [...] 12-08-2020 End: 03-14-2021 Dibucaine Discontinued 1 APPLIC NM Four times daily 56 December 07, 2020 [...] Fluticasone Propionate (Flonase Allergy Relief) 50 mcg/actuation [place],Suspension Discontinued 1 SPRAY INTRANASAL Daily February 10, 2020 11:00pm July 24, 2022 12:24pm Start: 07-28-2019 fluticasone 0. 05 mg/inh Nasal [place] Nasal, Daily, Refill(s) 0 Start Date: 07/28/19 [...] Nonsteroidal Anti-inflammatory Drug Start: 04-27-20 End: 08-09-19 24 take 600 mg by mouth four times [...] mg by mouth three times daily Pyridostigmine [place] Discontinued 60 MG PO Three times daily [...] without obstruction] 04-04-2021 Episodic Cancer of prostate (17 sources) Malignant neoplasm of prostate; 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: [Malignant tumor of prostate] Onset: 2 Chronic Cancer of prostate (2 sources) Personal history of malignant neoplasm of prostate; 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: [History of malignant neoplasm of prostate] Onset: 4 Episodic Deficiency and other anemia (4 sources) Iron deficiency anemia due to blood loss; 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: [Iron deficiency anemia secondary to blood loss (chronic)] Onset: 0 12-04-2022 Chronic Deficiency and other anemia (10 sources) Anemia; 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: [Anemia, unspecified] Onset: 3 01-19-2019 Episodic Deficiency and other anemia (10 sources) Iron deficiency anemia; 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: [Iron deficiency anemia, unspecified] 02-11-2020 Episodic Diabetes mellitus with complications (10 sources) Type 2 diabetes mellitus with hyperglycemia; 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: [Type 2 diabetes mellitus] Onset: 3 Chronic Diabetes mellitus without complication (20 sources) Diabetes mellitus; 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: [Type 2 diabetes mellitus without complication] Onset: 3 01-19-2019 Chronic Diabetes mellitus without complication (4 sources) Glycosuria; 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: [Glycosuria] Onset: 3 Episodic Disorders of lipid metabolism (10 sources) Hypercholesterolemia; 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: [Pure hypercholesterolemia, unspecified] Onset: 3 01-19-2019 Chronic Esophageal disorders (20 sources) Gastroesophageal reflux disease; 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: [Gastro-esophageal reflux disease without esophagitis] Onset: 3 01-30-2019 Chronic Esophageal disorders (1 source) Esophageal disorders; 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: [Gastro-esophageal reflux disease without esophagitis] Onset: 4 Essential hypertension (10 sources) Hypertensive disorder; 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: [Benign essential hypertension] Onset: 3 01-19-2019 Chronic Genitourinary symptoms and ill-defined conditions (20 sources) Nocturia; 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: [Proteinuria] Onset: 3 03-31-2019 Episodic Headache; including migraine (10 sources) Migraine; 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: [Migraine, unspecified, not intractable, without status migrainosus] Onset: 3 Resolved: 3 01-19-2019 Chronic Hemorrhoids (7 sources) Hemorrhoids; 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: [Unspecified hemorrhoids] Episodic Hyperplasia of prostate (20 sources) Benign prostatic hypertrophy with outflow obstruction; 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: [Benign prostatic hyperplasia with lower urinary tract symptoms] Onset: 7 Chronic Nausea and vomiting (1 source) Vomiting, unspecified; 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: [Vomiting, unspecified] Onset: 4 Episodic Osteoarthritis (16 sources) Arthritis of left knee; 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: [Unilateral primary osteoarthritis, left knee] Onset: 3 12-04-2022 Chronic Other aftercare (1 source) Other long term care social worker (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 therapy; 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: [OTH OPERATIONS OFFICER AFLOAT CURRENT DRUG THERAPY] Onset: 3 Episodic Other [...] conditions (not mental disorders or infectious disease) (10 sources) Raised prostate specific antigen; 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: [Elevated [...] states; 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: [Other postprocedural status] 07-24-2023 Episodic Spondylosis; intervertebral disc disorders; other back problems (5 sources) Lumbar spondylosis; 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: [Spondylosis without myelopathy or radiculopathy, lumbar region] Onset: 3 06-07-2023 Chronic Substance-related disorders (10 sources) Cigarette smoker ; 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: [Nicotine dependence, cigarettes, uncomplicated] Onset: 3 Resolved: 3 10-06-2019 Chronic Past or Other Problems Problem Classification Problem Date Documented Da te Episodic/Chronic Conditions associated with dizziness or vertigo (4 sources) Lightheadedness; 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: [Dizziness and giddiness] Onset: 11-19-2018 12-04-2022 Episodic Gastrointestinal hemorrhage (1 source) Melena; 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: [Melena] Onset: 04-27-2023 Episodic Malaise and fatigue (4 sources) Fatigue; 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: [Other fatigue] Onset: 11-19-2018 12-04-2022 Episodic Mood disorders (4 sources) Mood disorders Onset: 06-29-2020 06-29-2020 Other aftercare (4 sources) Long-term current use of insulin; 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: [intermediate teacher (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) use of insulin] Onset: 12-04-2022 12-04-2022 [...] [Other specified postprocedural states] Onset: 07-24-2023 Episodic Screening and history of mental health and substance abuse codes (3 sources) Tobacco use and exposure - finding; 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: [Personal history of nicotine dependence] Onset: 08-15-2023 08-15-2023 Episodic Results Test Name Value Interpretation Reference Range Facility Ambulatory Visit Summaryon 0 02-04-2024 Ambulatory Visit Summary Ambulatory Visit Summary MILAD SEYMOUR :1955 Visit Date:02/04/2024 Ambulatory Visit Instructions Your Diagnosis Personal history of prostate cancer Enlarged prostate with urinary obstruction Your Care Team Attending Physician - NICOLA RAYMUNDO, Peterson Owens Primary Care Physician - ALBER RAYMUNDO, DANK This Is Your Medications List Contact prescribing physician if questions or concerns aspirin (aspirin 81 mg Oral EC Tab) celecoxib fluoxetine (FLUoxetine 20 mg Cap) fluticasone nasal (fluticasone 0.05 mg/inh Nasal [place]) insulin lispro (Insulin Lispro KwikPen 100 units/mL injectable solution) lansoprazole lisinopril loperamide (loperamide 2 mg Cap) metoprolol (metoprolol 25 mg ER Tab) potassium chloride (Potassium Chloride (Eqv-K-Tab) 20 mEq oral tablet, extended release) simvastatin tildrakizumab (Ilumya 100 mg/mL subcutaneous solution) Procedures Performed Laparoscopic cholecystectomy (03/2021), Radiation (01/16/2020), Transrectal biopsy of prostate using ultrasound (US) guidance (09/23/2019), Transrectal biopsy of prostate using ultrasound (US) guidance (09/03/2018), Appendectomy, Colonoscopy, Partial repair of rotator cuff, Tonsillectomy. Discharge Vitals Heart Rate (Peripheral) 66 Respiratory Rate 16 Blood Pressure 116/74 Height 177 cm Height 70 in Weight 112 kg Weight 246.4 lb BMI 35.75 What to do next You Need to Schedule the Following Appointments Follow Up with NICOLA RAYMUNDO, ISRAEL Alberts When: Where: [facility] [address] [place] [address]- [phone] Medications What How Much When Instructions Unchanged aspirin (aspirin 81 mg Oral EC Tab) By Mouth Every day Contact prescribing physician if questions or concerns Unchanged celecoxib By Mouth Contact prescribing physician if questions or concerns Unchanged fluoxetine (FLUoxetine 20 mg Cap) 1 Capsules By Mouth Contact prescribing physician if questions or concerns Unchanged fluticasone nasal (fluticasone 0.05 mg/ inh Nasal [place]) Nasal Inhalation Every day Contact prescribing physician if questions or concerns Unchanged insulin lispro (Insulin Lispro KwikPen 100 units/ mL injectable solution) Contact prescribing physician if questions or concerns Unchanged lansoprazole By Mouth Every day Contact prescribing physician if questions or concerns Unchanged lisinopril By Mouth Every day Contact prescribing physician if questions or concerns Unchanged loperamide (loperamide 2 mg Cap) 1 Capsules By Mouth Contact prescribing physician if questions or concerns Unchanged metoprolol (metoprolol 25 mg ER Tab) By Mouth Every day Contact prescribing physician if questions or concerns Unchanged potassium chloride (Potassium Chloride (Eqv-K-Tab) 20 mEq oral tablet, extended release) Contact prescribing physician if questions or concerns Unchanged simvastatin By Mouth Contact prescribing physician if questions or concerns Unchanged tildrakizumab (Ilumya 100 mg/ mL subcutaneous solution) Subcutaneous Every 3 months Contact prescribing physician if questions or concerns Allergies No Known Medication Allergies Problems Ongoing - Any problem that you are currently receiving treatment for. Anemia Cigarette smoker Diabetes Enlarged prostate with urinary obstruction Frequency of urination Glucosuria Hypercholesteremia Hypertension Migraine headache Nocturia Personal history of prostate cancer Proteinuria Historical - Any problem that you are no longer receiving treatment for. Elevated PSA Patient Survey You may receive a survey via text or e-mail asking about your office visit. Please share your experience with us by completing your survey. We appreciate your feedback and thank you for choosing us for your care. Education Materials Prostate Cancer Screening Prostate cancer screening is testing that is done to check for the presence of prostate cancer in men. The prostate gland is a walnut-sized gland that is located below the bladder and in front of the rectum in males. The function of the prostate is to add fluid to semen during ejaculation. Prostate cancer is one of the most common types of cancer in men. Who should have prostate cancer screening? Screening recommendations vary based on age and other risk factors, as well as between the professional organizations who make the recommendations. In general, screening is recommended if: ? You are age 50 to 70 and have an average risk for prostate cancer. You should talk with your health care provider about your need for screening and how often screening should be done. Because most prostate cancers are slow growing and will not cause , screening in this age group is generally reserved for men who have a 10- to 15-year life expectancy. ? You are younger than age 50, and you have these risk factors: ? Having a father, brother, or uncle who has been diagnosed with pro (more content not included)... Normal [facility] Office/Clinic Noteon 02-04-2024 Urology Office/Clinic Note Urology Office/Clinic Note Chief Complaint 1 year follow up HPI Staff 68 year old male patient presents today for a year follow up with PSA. DX: Prostate Cancer & BPH *S/P ERBT 01/16/20 Last PSA 02/06/23- 0.4 Current PSA 01/28/24 - 0.14 Dysuria: denies pain or burning Incomplete bladder emptying: denies Hematuria: denies visible blood Frequency: denies Urgency: denies Nocturia: denies Stream: yes sometimes has start/stop stream in the morning Leaking: denies Post void dripping: denies Wearing pads/ Depends: denies Urge incontinence: denies Stress incontinence: denies Incontinence without Sensory Awareness: denies Abdominal pain: denies Flank pain: denies Sexual complaints: denies History of Present Illness Tests reviewed: reviewed UA, PSA I have reviewed the previous health record information and history for this patient from Dr. Petersen. I have reviewed and verified the staff HPI to be accurate for this encounter. Review of Systems PHQ Score Initial Depression Screen Score: 0 SCORE ROS - Provider Constitutional: denies weight loss, [...] HPI. Physical Exam Vitals & Measurements HR: 66(Peripheral) RR: 16 BP: 116/74 HT: 70 in HT: 177 cm WT: 112 kg WT: 246.4 lb BMI: 35.75 General Appearance: alert, no distress, well nourished, well developed male. Assessment/Plan 1. Personal history of prostate cancer (Z85.46: Personal history of malignant neoplasm of prostate) PSA 08/04/21- 0.26 01/27/22- 0.1 & 30% 11/28/22 - 0.5 02/06/23 - 0.4 01/28/24 - 0.14 TRUS/bx 08/2018 - Rosalina 6 (3+3) x2 and one suspicious. TRUS/bx 09/23/19 - Rosalina 6 (3+3) x3, 26% involved with JOSE and HGPIN x1. Genetic testing 10/07/19 - favorable intermediate DSM risk. S/p EBRT 01/16/20. PSA remains low. Will continue to monitor. -1 yr w/ PSA 2. Enlarged prostate with urinary obstruction (N40.1: Benign prostatic hyperplasia with lower urinary tract symptoms) Not currently taking any prostate medications. No sample provided for UA today. Shares stream does start/stop first thing in the morning. Denies nocturia. No urgency since radiation treatment. Follow-up With When Contact Information NICOLA RAYMUNDO, Peterson Owens, URL [facility] [address] [place] [address] [phone] Additional Instructions: 1 yr w/ PSA Patient Education Prostate Cancer Screening I, Johana eReves, personally scribed for Dr. Petersen on 02/04/2024 12:50:31. . Documentation recorded by the scribJohana de luna, accurately reflects the services(s) I performed and decisions made by me. Authenticated by Dr. Petersen on 02/04/2024 12:51:58. Problem List/Past Medical History Ongoing Anemia Cigarette smoker Diabetes Enlarged prostate with urinary obstruction Frequency of urination Glucosuria Hypercholesteremia Hypertension Migraine headache Nocturia Personal history of prostate cancer Proteinuria Historical Elevated PSA Procedure/Surgical History Laparoscopic cholecystectomy (03/2021), Radiation (01/16/2020), Transrectal biopsy of prostate using ultrasound (US) guidance (09/23/2019), Transrectal biopsy of prostate using ultrasound (US) guidance (09/03/2018), Appendectomy, Colonoscopy, Partial repair of rotator cuff, Tonsillectomy. Medications aspirin 81 mg Oral EC Tab, Oral, Daily celecoxib, Oral FLUoxetine 20 mg Cap, 20 mg= 1 cap(s), Oral fluticasone 0.05 mg/inh Nasal [place], Nasal, Daily Ilumya 100 mg/mL subcutaneous solution, SubCutaneous, q3mo Insulin Lispro KwikPen 100 units/mL injectable solution lansoprazole, Oral, Daily lisinopril, Oral, Daily loperamide 2 mg Cap, 2 mg= 1 cap(s), Oral metoprolol 25 mg ER Tab, Oral, Daily Potassium Chloride (Eqv-K-Tab) 20 mEq oral tablet, extended release simvastatin, Oral Allergies No Known Medication Allergies Social History Alcohol - Denies Alcohol Use, 03/31/2019 Tobacco Former smoker, quit more than 30 days ago Tobacco Use:. Never Smokeless Tobacco Use:. Cigarettes, 02/04/2024 Former smoker, quit more than 30 days ago Tobacco Use:. Cigarettes, Yes, 02/03/2022 Family History Diabetes: Mother and Father. Heart disease: Father. Hypertension: Mother and Father. Stroke: Mother and Father. Immunizations Vaccine Date Status zoster vaccine, inactivated 04/22/2023 Recorded zoster vaccine, inactivated 02/14/2023 Recorded influenza virus vaccine, inactivated 02/14/2023 Recorded influenza virus vaccine, inactivated 04/09/2022 Recorded SARS-CoV- (more content not included)... Normal [facility] Comment on above: Result Comment: Elec tronically Signed By: Peterson PETERSEN MD\.br\Date and Time Signed: 02/04/24 12:52 EDT\.br\Electronically Co-Signed By: Johana Reeves\.br\Date and Time Co-Signed: 02/04/24 12:50 EDT NM gastric emptying studyon 08-22-2023 NM gastric emptying study [place] [address] Nuclear Medicine Report Signed Patient: Milad Seymour MR#: [id number] : 1955 Acct:[id number] Age/Sex: 67 / M ADM Date: 08/22/23 Loc: MD Room: Type: [facility] Attending Dr: Kike Bernal MD Copies to: [...] Grimes Jr., D.O.08/22/2023 12:21 PM Dictation Location: [place] [address] Transcribed By: [facility] 08/22/23 1221 Dictated By: Shaheen Grimes Jr, DO 08/22/23 1215 Signed By: 08/22/23 1221 Normal [facility] Glucose Poct Glucometerson 0 08-20-2023 Glucose [Mass/Vol] 182 mg/dL Normal The Count includes the [facility] Comment on above: Result Comment: [facility] Glucose Reference Range is dependent on time and content of last meal. Glucose of more than 200 mg/dL in a nonstressed, ambulatory subject supports the diagnosis of Diabetes Mellitus. PERFORMED BY: [address] [place] [address] PATHOLOGIST SENIOR DATA WAREHOUSE ARCHITECT JEANNINE VAZQUEZ M.D. Performed By: #### G LUCI #### Point of Care testing , Glucose [Mass/Vol] 227 mg/dL Normal The Count includes the [facility] Comment on above: Result Comment: [facility] Glucose Reference Range is dependent on time and content of last meal. Glucose of more than 200 mg/dL in a nonstressed, ambulatory subject supports the diagnosis of Diabetes Mellitus. PERFORMED BY: [place] [address] PATHOLOGIST SENIOR DATA WAREHOUSE ARCHITECT JEANNINE VAZQUEZ M.D. Performed By: #### G LULS #### Point of Care testing , XR pre/post mri xrayon 08-19 XR pre/post mri xray [facility] [place] [address] [place], [place] [id number] MRI Report Signed Patient: Milad Seymour MR#: [id number] : 1955 Acct:[id number] Age/Sex: 67 / M ADM Date: 08/20/23 Loc: [place] Room: Type: [facility] Attending Dr: Dank Campo MD Copies to: Dank Campo MD Ordering Provider: Dank Campo MD Date of Service: 08/20/23 MR/MR lumbar spine wo con: [id number] ([id number]) XR/XR pre/post mri xray: PRE LUMBAR MRI [...] Tom Chanel M.D.08/20/2023 1:02 PM Dictation Location: [place] [address] Transcribed By: [facility] 08/20/23 1302 Dictated By: Tom Chanel DO 08/20/23 1250 Signed By: 08/20/23 1302 Normal [facility] HbA1c (Bld) [Mass fraction]o n 07-30-2023 Interpretation and review of laboratory results Abnormal [facility] - Hematology and Cell countson 07-30-2023 HbA1c (Bld) [Mass fraction] 8.9 % [facility] CT shoulder LT w conon 07-24 CT shoulder LT w con [facility] [place] [address] [place] [address] CT Scan Report Signed Patient: Milad Seymour MR#: [id number] : 1955 Acct:[id number] Age/Sex: 67 / M ADM Date: 07/24/23 Loc: XD Room: Type: [facility] Attending Dr: Edd Holden SWING RIDE OPERATOR-C Copies to: Edd Holden ASSOCIATE BIOLOGICAL SALES Ordering Provider: Edd Holden CNP Date of [...] Kamran Chavira M.D.07/24/2023 1:48 PM Dictation Location: [place] [address] Transcribed By: WOODY 07/24/23 1348 Dictated By: Kamran Chavira II, MD 07/24/23 1336 Signed By: 07/24/23 1348 Normal [facility] [place] guided needle placementon 07-24-2023 FL guided needle placement [place] [address] Fluoroscopy Report Signed Patient: Milad Seymour MR#: [id number] : 1955 Acct:[id number] Age/Sex: 67 / M ADM Date: 07/24/23 Loc: Room: Type: [facility] Attending Dr: Edd Holden SWING RIDE OPERATOR-C Copies to: Edd Holden [employer]OC[employer]ATE [employer]ES Ordering Provider: Edd Holden CNP Date of [...] Kamran Chavira M.D.07/24/2023 12:39 PM Dictation Location: [place] [address] Transcribed By: [facility] 07/24/23 1239 Dictated By: Kamran Chavira II, MD 07/24/23 1231 Signed By: 07/24/23 1239 Normal [facility] Capillary blood glucose deb urement by glucometer (mass/volume)Ordered By: Kike Bernal on 04-27-2023 Glucose [Mass/Vol] 189 mg/dL Normal [facility] Comment on above: Random Glucose Refer ence Range is dependent on time and content of last meal. Glucose of more than 200 mg/dL in a nonstressed, ambulatory subject supports the diagnosis of Diabetes Mellitus. Result Comment: [place] Glucose Reference Range is dependent on time and content of last meal. Glucose of more than 200 mg/dL in a nonstressed, ambulatory subject supports the diagnosis of Diabetes Mellitus. Performed By: #### G LUCI #### Point of Care testing , Glucose Poct Glucometerson 1 06-27-2022 Commemt1 Glu2: Cleaned Meter Normal [facility] Comment on above: Result Comment: PERF ORMED BY: [facility] [address] [place] [address] PATHOLOGIST SENIOR DATA WAREHOUSE ARCHITECT JEANNINE VAZQUEZ M.D. Performed By: #### G LURENEE #### Point of Care testing , William 04-27-2023 L ------ Specimen: [id number] Received: 04/27/23 Status: MASSIEL Jewel Num: [id number] Spec Type: Surgical Subm Dr: Kike Bernal MD Tissues: A Colon Biopsy (RANDOM COLON) Procedures: HE/2, Gross/Micro L4 Age/ Patient Sex Location Account Attending Physician Milad Seymour/Sonia [id number] Kike Bernal MD SPEC NUM: [id number] RECD: 04/27/23 STATUS: MASSIEL JEWEL NUM: [id number] KURT: 04/27/23- SUBM DR: Kike Bernal MD ENTERED: 04/27/23 CARL SINGH: VERA TYPE: Surgical DEPT: S ORDERED: HE/2, [...] microscopic examination confirms the diagnosis. CPT Codes 74252 Specimen: [id number] Received: 04/27/23 Status: MASSIEL Pacheco Num: [id number] Spec Type: Surgical Subm Dr: Kike Bernal MD Tissues: A Colon Biopsy (RANDOM COLON) Procedures: EVELIA/Rianna, Gross/Micro L4 Patient: Milad Seymour [id number] (Continued) Signed (signature on file) Kaushal Magana MD 04/30/23 1325 Normal [facility] No Panel InformationOrdered By: Imjamia Bernal on 04-27-2023 Bedside Glucose Comment Glu2: cleaned meter [facility] Patient Educationon 02-13-20 Patient Education Oncology [...] likelihood that the cancer will spread. ? [place] 6 or lower: This indicates that the cancer cells look similar to normal prostate cells (well differentiated). ? [place] 7: This indicates that the cancer cells [...] external be (more content not included)... Normal [facility] Reminderson 02-12-2023 Reminders - From: Johana Reeves To: NOREEN Petersen; Sent: 02/12/2023 17:56:32 EDT Show up: 01/13/2024 17:56:00 EDT Subject: PSA prior to appt Reminder Message Please Remember to:_have pt get PSA done prior to appt in 1 year. Normal [facility] Urology Office/Clinic Noteon 02-12-2023 Urology Office/Clinic Note [...] Owens, URL [facility] [address], [place] [address]- [phone] Additional Instructions: 1 yr w/ PSA Patient [...] TID celecoxib, Oral fluticasone 0.05 mg/inh Nasal [place], Nasal, Daily Insulin Lispro KwikPen 100 units/mL [...] used for this result was chemiluminescence using [employer] PSA reagent. PSA Total 0.5 ng/mL 11/28/2022 11:31 EDT The concentration of P (more content not included)... Normal [facility] Comment on above: Result Comment: Elec tronically Signed By: NICOLA RAYMUNDO, Peterson Owens\.br\Date and Time Signed: 02/12/23 10:15 EDT\.br\Electronically Co-Signed [...] celecoxib fluticasone nasal (fluticasone 0.05 mg/inh Nasal [place]) lansoprazole lisinopril metformin metoprolol (metoprolol 25 mg ER Tab) simvastatin Procedures Performed Laparoscopic cholecystectomy (03/2021), Radiation (01/16/2020), Transrectal biopsy of prostate using ultrasound (US) guidance (09/23/2019), Transrectal biopsy of prostate using ultrasound (US) guidance (09/03/2018), Appendectomy, Colonoscopy, Tonsillectomy. What to do next Scheduled Follow-Up Appointments Sunday 9:15 AM EDT With: NICOLA RAYMUNDO, Peterson Owens Where: [facility] CHEMISTRYOrdered By: SYSTEM SYSTEM on 02-06-2023 Prostate specific Ag [Mass/Vol] 0.4 ng/mL Normal 0.1 - 3.5 ng/mL [facility] Remisol PSA Totalon 02-06-2023 Prostate specific Ag [Mass/Vol] 0.4 ng/mL Normal 0.1-3.5 [facility] Comment on above: Result Comment: The concentration of PSA determined by different manufacturers can vary due to differences in assay methods and reagent specificity. Values obtained from different assay methods cannot be used interchangeably. The methodology used for this result was chemiluminescence using [employer] Access Hybr[employer] PSA reagent. Performed By: #### 1 [id number] #### [facility] [address] [place] [address] PANCREATIC ELASTASE FECALon 09-24-2022 Pancreatic Elastase, Fecal 467 ug Elast./g Normal >200 [facility] Comment on above: Result Comment: Nicolle re Pancreatic Insufficiency: <100 Moderate Pancreatic Insufficiency: 100 - 200 Normal: >200 Performed By: #### C PEPT #### [facility] [address] [place] [address] Dr. Stewart De La Cruz POTASSIUM, FECALon 3 Potassium, Stool 57 mmol/L Normal [facility] Comment on above: Result Comment: INTE RPRETIVE INFORMATION: Fecal Potassium A reference interval has not been established for fecal specimens. This test was developed and its performance characteristics determined by [employer]. It has not been cleared or approved by the [place] Food and Drug Administration. This test was performed in a CLIA certified laboratory and is intended for clinical purposes. Performed By: #### C PEPT #### [facility] [address] [place] [address] Dr. Stewart De La Cruz SODIUM, FECALon 09-17-2022 Sodium, Stool 65 mmol/L Normal [facility] Comment on above: Result Comment: INTE RPRETIVE INFORMATION: Fecal Sodium A reference interval has not been established for fecal specimens. This test was developed and its performance characteristics determined by [employer]. It has not been cleared or approved by the US Food and Drug Administration. This test was performed in a CLIA certified laboratory and is intended for clinical purposes. Performed By: #### F ECALN #### [facility] [address] [place] [address] Dr. Stewart De La Cruz CALPROTECTIN, FECALon 2022 Calprotectin, Fecal 43 ug/g Normal 0-120 [facility] Comment on above: Result Comment: Conc entration Interpretation Follow-Up <16 - 50 ug/g Normal None >50 -120 ug/g Borderline Re-evaluate in 4-6 weeks >120 ug/g Abnormal Repeat as clinically indicated Performed By: #### C PEPT #### [facility] [address] [place] [address] Dr. Stewart De La Cruz C-PEPTIDE, SERUMon 3 C-Peptide, Serum 6.5 ng/mL Critically high 1.1-4.4 [facility] Comment on above: Result Comment: C-Pe ptide reference interval is for fasting patients. Performed By: #### C PEPT #### [facility] [address] [place] [address] Dr. Stewart De La Cruz HIV 1 AND 2 WITH REFLEXon HIV Screen 4th Generation wRfx Non-Reactive Normal Non Reactive [facility] Comment on above: Result Comment: HIV Negative HIV-1/HIV-2 antibodies and HIV-1 p24 antigen were NOT detected. There is no laboratory evidence of HIV infection. Performed By: #### C PEPT #### [facility] [address] [place] [address] [address] Stewart De La Cruz INSULINon 09-13-2022 Insulin 13.9 uIU/mL Normal 2.6-24.9 [facility] Comment on above: Performed By: #### C PEPT #### [facility] [address] [place] [address] Dr. Stewart De La Cruz POTASSIUM, FECALon 3 Potassium, Stool QNSMT Normal [facility] Comment on above: Result Comment: Test not performed. One specimen was submitted with requests for multiple tests. The requested testing requires a separate specimen for each test requested. contacted Keesha at your facility on 09-13-2022 Performed By: #### C PEPT #### [facility] [address] [place] [address] Dr. Stewart De La Cruz SODIUM, FECALon 09-13-2022 Sodium, Stool QNSMT Normal [facility] Comment on above: Result Comment: Test not performed. One specimen was submitted with requests for multiple tests. The requested testing requires a separate specimen for each test requested. contacted Keesha at your facility on 09-13-2022 Performed By: #### F ECALN #### [facility] [address] [place] [address] Dr. Stewart De La Cruz CBC AUTO DIFFon 09-12-2022 BASO # 0.1 103/ul Normal 0.0-0.1 [facility] Comment on above: Performed By: #### C PEPT #### [facility] [address] [place] [address] Dr. Stewart De La Cruz Basophils/100 WBC (Bld) 1.2 % Normal 0.2-2.0 [facility] Comment on above: Performed By: #### C PEPT #### [facility] [address] [place] [address] Dr. Stewart De La Cruz EO # 0.3 103/ul Normal 0.0-0.7 [facility] Comment on above: Performed By: #### C PEPT #### [facility] [address] [place] [address] Dr. Stewart De La Cruz Eosinophils/100 WBC (Bld) 4.5 % Normal 0.9-7.0 [facility] Comment on above: Performed By: #### C PEPT #### [facility] [address] [place] [address] Dr. Stewart De La Cruz Erythrocyte distribution width (RBC) [Ratio] 12.9 % Normal 11.0-15.0 [facility] Comment on above: Performed By: #### C PEPT #### [facility] [address] [place] [address] Dr. Stewart De La Cruz Hematocrit (Bld) [Volume fraction] 44.6 % Normal 42.0-54.0 [facility] Comment on above: Performed By: #### C PEPT #### [facility] [address] [place] [address] Dr. Stewart De La Cruz Hemoglobin (Bld) [Mass/Vol] 14.9 g/dL Normal 14.0-18.0 [facility] Comment on above: Performed By: #### C PEPT #### [facility] [address] [place] [address] Dr. Stewart De La Cruz IG # 0.03 10e3/ul Normal 0.00-0.03 [facility] Comment on above: Performed By: #### C PEPT #### [facility] [address] [place] [address] Dr. Stewart De La Cruz IG % 0.5 % Normal 0.0-0.5 [facility] Comment on above: Performed By: #### C PEPT #### [facility] [address] [place] [address] Dr. Stewart De La Cruz LYMPH # 1.1 103/ul Critically low 1.2-3.8 [facility] Comment on above: Performed By: #### C PEPT #### [facility] [address] [place] [address] Dr. Stewart De La Cruz Lymphocytes/100 WBC (Bld) 18.5 % Critically low 20.5-60.0 [facility] Comment on above: Performed By: #### C PEPT #### [facility] [address] [place] [address] Dr. Stewart De La Cruz MANUAL DIFF REQ NO Normal [facility] Comment on above: Performed By: #### C PEPT #### [facility] [address] [place] [address] Dr. Stewart De La Cruz MCH (RBC) [Entitic mass] 29.2 pg Normal 25.9-34.0 [facility] Comment on above: Performed By: #### C PEPT #### [facility] [address] [place] [address] Dr. Stewart De La Cruz MCHC (RBC) [Mass/Vol] 33.4 g/dL Normal 29.9-35.2 [facility] Comment on above: Performed By: #### C PEPT #### [facility] [address] [place] [address] Dr. Stewart De La Cruz MCV (RBC) [Entitic vol] 87.5 fL Normal 80.0-94.0 [facility] Comment on above: Performed By: #### C PEPT #### [facility] [address] [place] [address] Dr. Stewart De La Cruz MONO # 0.4 103/ul Normal 0.3-0.8 [facility] Comment on above: Performed By: #### C PEPT #### [facility] [address] [place] [address] Dr. Stewart De La Cruz Monocytes/100 WBC (Bld) 6.8 % Normal 1.7-12.0 [facility] Comment on above: Performed By: #### C PEPT #### [facility] [address] [place] [address] Dr. Stewart De La Cruz NEUT # 4.2 103/ul Normal 1.4-6.5 [facility] Comment on above: Performed By: #### C PEPT #### [facility] [address] [place] [address] Dr. Stewart De La Cruz Neutrophils/100 WBC (Bld) 68.5 % Normal 43.0-75.0 [facility] Comment on above: Performed By: #### C PEPT #### [facility] [address] [place] [address] Dr. Stewart De La Cruz Platelet mean volume (Bld) [Entitic vol] 9.8 fL Normal 9.5-13.5 [facility] Comment on above: Performed By: #### C PEPT #### [facility] [address] [place] [address] Dr. Stewart De La Cruz PLT 133 103/ul Critically low 150-450 [facility] Comment on above: Performed By: #### C PEPT #### [facility] [address] [place] [address] Dr. Stewart De La Cruz RBC 5.10 106/ul Normal 4.70-6.10 [facility] Comment on above: Performed By: #### C PEPT #### [facility] [address] [place] [address] Dr. Stewart De La Cruz WBC 6.1 103/ul Normal 4.0-11.0 [facility] Comment on above: Performed By: #### C PEPT #### [facility] [address] [place] [address] Dr. Stewart De La Cruz CRPon 09-12-2022 CRP [Mass/Vol] mg/L Normal <=1.0 [facility] Comment on above: Performed By: #### C RP #### [facility] [address] [place] [address] Dr. Stewart De La Cruz GLYCOHEMOGLOBIN A1Con 2022 ADA RECOMMENDATION SEE BELOW Normal [facility] Comment on above: Result Comment: ADA RECOMMENDED LIMIT 4.0 - 6.0 ADA THERAPEUTIC TARGET < 7.0 ACTION SUGGESTED > 7.0 Performed By: #### A 1C #### [facility] [address] [place] [address] Dr. Stewart De La Cruz Glucose [Mass/Vol] 278 mg/dL Normal [facility] Comment on above: Performed By: #### A 1C #### [facility] [address] [place] [address] Dr. Stewart De La Cruz HbA1c (Bld) [Mass fraction] 11.3 % Critically high 4.5-6.2 [facility] Comment on above: Performed By: #### A 1C #### [facility] [address] [place] [address] Dr. Stewart De La Cruz PROF CHEM 8 (BAS METB)on Anion gap [Moles/Vol] 16.9 mmol/L Normal [facility] Comment on above: Performed By: #### C PEPT #### [facility] [address] [place] [address] Dr. Stewart De La Cruz Calcium [Mass/Vol] 9.3 mg/dL Normal 8.5-10.1 [facility] Comment on above: Performed By: #### C PEPT #### [facility] [address] [place] [address] Dr. Stewart De La Cruz Chloride [Moles/Vol] 103 mmol/L Normal 98-107 [facility] Comment on above: Performed By: #### C PEPT #### [facility] [address] [place] [address] Dr. Stewart De La Cruz CO2 [Moles/Vol] 26.0 mmol/L Normal 21.0-32.0 [facility] Comment on above: Performed By: #### C PEPT #### [facility] [address] [place] [address] Dr. Stewart De La Cruz Creatinine [Mass/Vol] 1.43 mg/dL Critically high 0.70-1.30 [facility] Comment on above: Performed By: #### C PEPT #### [facility] [address] [place] [address] Dr. Stewart De La Cruz EGFR-AF SWEDISH 60 mL/min/1.73m2 Normal >=60 [facility] Comment on above: Performed By: #### C PEPT #### [facility] [address] [place] [address] Dr. Stewart De La Cruz EGFR-NON AF [place] 49 mL/min/1.73m2 Critically low >=60 [facility] Comment on above: Performed By: #### C PEPT #### [facility] [address] [place] [address] [address] Stewart De La Cruz Glucose [Mass/Vol] 293 mg/dL Critically high 74-106 [facility] Comment on above: Performed By: #### C PEPT #### [facility] [address] [place] [address] [address] Stewart De La Cruz Potassium [Moles/Vol] 4.9 mmol/L Normal 3.5-5.1 [facility] Comment on above: Performed By: #### C PEPT #### [facility] [address] [place] [address] [address] Stewart De La Cruz Sodium [Moles/Vol] 141 mmol/L Normal 136-145 [facility] Comment on above: Performed By: #### C PEPT #### [facility] [address] [place] [address] [address] Stewart De La Cruz Urea nitrogen [Mass/Vol] 32.0 mg/dL Critically high 7.0-18.0 [facility] Comment on above: Performed By: #### C PEPT #### [facility] [address] [place] [address] [address] Stewart De La Cruz Urea nitrogen/Creatinine [Mass ratio] 22.4 mg/mg Normal [facility] Comment on above: Performed By: #### C PEPT #### [facility] [address] [place] [address] [address] Stewart De La Cruz SED RATE [facility] 2022 SED RATE 17 mm/hr Normal <=20 [facility] Comment on above: Performed By: #### S EDR #### [facility] [address] [place] [address] [address] Stewart De La Cruz RAD EGD - documentation only do not orderon 07-25-2022 RAD EGD - documentation only do not order [facility] Other Glucose Glucometer (BldC) [M ass/Vol]Ordered By: Kike Bernal on 07-24-2022 Glucose [Mass/Vol] 275 mg/dL [facility] Comment on above: Random Glucose Refer ence Range is dependent on time and content of last meal. Glucose of more than 200 mg/dL in a nonstressed, ambulatory subject supports the diagnosis of Diabetes Mellitus. GLYCOHEMOGLOBIN A1Con 2021 ADA RECOMMENDATION SEE BELOW Normal [facility] Comment on above: Result Comment: ADA RECOMMENDED LIMIT 4.0 - 6.0 ADA THERAPEUTIC TARGET < 7.0 ACTION SUGGESTED > 7.0 Performed By: #### A 1C #### [facility] [address] [place] [address] [address] Stewart De La Cruz Glucose [Mass/Vol] 235 mg/dL Normal [facility] Comment on above: Performed By: #### A 1C #### [facility] [address] [place] [address] Dr. Stewart De La Cruz HbA1c (Bld) [Mass fraction] 9.8 % Critically high 4.5-6.2 [facility] Comment on above: Performed By: #### A 1C #### [facility] [address] [place] [address] [address] Stewart De La Cruz GLYCOHEMOGLOBIN A1Con 2021 ADA RECOMMENDATION SEE BELOW Normal [facility] Comment on above: Result Comment: ADA RECOMMENDED LIMIT 4.0 - 6.0 ADA THERAPEUTIC TARGET < 7.0 ACTION SUGGESTED > 7.0 Performed By: #### A 1C #### [facility] [address] [place] [address] [address] Stewart De La Cruz Glucose [Mass/Vol] 197 mg/dL Normal [facility] Comment on above: Performed By: #### A 1C #### [facility] [address] [place] [address] [address] Stewart De La Cruz HbA1c (Bld) [Mass fraction] 8.5 % Critically high 4.5-6.2 [facility] Comment on above: Performed By: #### A 1C #### [facility] [address] [place] [address] Dr. Stewart De La Cruz PSA, FREE AND TOTAL RATIOon 01-28-2022 % Free PSA 30.0 % Normal [facility] Comment on above: Result Comment: [...] men. Performed By: #### P SAFREE #### [facility] [address] [place] [address] [address] Stewart De La Cruz Prostate specific Ag [Mass/Vol] 0.1 ng/mL Normal 0.0-4.0 [facility] Comment on above: Result Comment: Nina PUCKETT methodology. . According to the [employer], Serum PSA should decrease and [...] disease. Performed By: #### P SAFREE #### [facility] [address] [place] [address] [address] Stewart De La Cruz PSA, Free 0.03 ng/mL Normal N/A [facility] Comment on above: Result Comment: Nina PUCKETT methodology. Performed By: #### P SAFREE #### [facility] [address] [place] [address] [address] Stewart De La Cruz GLYCOHEMOGLOBIN A1Con 2021 ADA RECOMMENDATION SEE BELOW Normal [facility] Comment on above: Result Comment: ADA RECOMMENDED LIMIT 4.0 - 6.0 ADA THERAPEUTIC TARGET < 7.0 ACTION SUGGESTED > 7.0 Performed By: #### A 1C #### [facility] [address] [place] [address] [address] Stewart De La Cruz Glucose [Mass/Vol] 192 mg/dL Normal [facility] Comment on above: Performed By: #### A 1C #### [facility] [address] [place], [place] [address] Dr. Stewart De La Cruz HbA1c (Bld) [Mass fraction] 8.3 % Critically high 4.5-6.2 [facility] Comment on above: Performed By: #### A 1C #### [facility] [address] [place], [place] [address] Dr. Stewart De La Cruz CNOVon 02-01-2021 CNOV Office Visit (RADTSA ) -- MILAD SEYMOUR ([id number]) 1955 M Date Time Provider Department 02/01/21 3:15 PM Fawad DIAZ During your visit today, we recorded the following information about you: Temperature Pulse Respiration Blood pressure 97 degrees 75/minute 16/minute 125/64 Weight 102.5 kg Tila Herrera LPN 02/01/2021 3:08 PM Signed AUA= 2 Fawad Diaz MD 02/03/2021 9:48 AM Signed Radiation [...] Fawad Diaz MD cc: Dank Campo MD ([facility]) [address] [place] [address] Dr. Petersen Portions of the above note extracted and edited from previous visit as well as active information included in the EMR. Referring Provider: Fawad DIAZ [[id number]] Allergies As of Date: 02/01/2021 (No Known Allergies) Date Reviewed: 02/01/2021 Reviewed by: Tila Herrera LPN - Fully Assessed Reason for Visit: Prostate Cancer [590] Primary Visit Diagnosis:Malignant neoplasm of prostate (HCC) [C61] Order(s):PSA/PROSTSPECAG DIAG [SQPSA] Order #: [id number] FUTURE Prescriptions as of 02/03/2021 - aspirin, [...] magnesium) t (more content not included)... Normal [facility] PSA, Diagnosticon 01-25-2021 PSA, Diagnostic 0.29 ng/mL Normal 0.00-2.59 [facility] Comment on above: Result Comment: Sandra manzo PSA test methodology used is the Electrochemiluminescence Immunoassay. Performed By: #### P SA #### [facility] [address] [place], [place] [address] OBSOLETEon 12-22-2020 OBSOLETE Refill (RADTSA) -- MILAD SEYMOUR ([id number]) 1955 M Date Time Provider Department 12/22/20 [...] Encounter Status:Closed by TILA HERRERA on 01/04/21 [facility] CNOVmaura 11-03-2020 CNOV Office Visit (RADTSA ) -- MILAD SEYMOUR ([id number]) 1955 M Date Time Provider Department 11/03/20 4:00 PM LAB/PORT RADD[facility] MEDINA RADTSA During your visit today, we recorded the following information about you: Referring Provider: Fawad DIAZ [[id number]] Allergies As of Date: 11/03/2020 (No Known [...] Encounter Status:Closed by TILA HERRERA on 11/03/20 [facility] Office Visit (RADTSA ) -- MILAD SEYMOUR ([id number]) 1955 M Date Time Provider Department 11/03/20 [...] DIAGNOSIS: Prostate adenocarcinoma, initial PSA 14.65, biopsy [place] score 3 + 3 = 6 (grade [...] ASSESSMENT/PLAN:DIAGNOSIS: Prostate adenocarcinoma, initial PSA 14.65, biopsy [place] score 3 + 3 = 6 (grade [...] Fawad Diaz MD cc: Dank Campo MD ([facility]) [address] [place] [address] Dr. Petersen Referring Provider: Fawad DIAZ [[id number]] Allergies As of Date: 11/03/2020 (No Known Allergies) Date Reviewed: 11/03/2020 Reviewed by: Fawad Diaz MD - Fully Assessed Reason for Visit: Prostate Cancer [590] Primary Visit Diagnosis:Malignant neoplasm of prostate (HCC) [C61] Order(s):PSA/PROSTSPECAG DIAG [SQPSA] Order #: [id number] FUTURE Prescriptions as of 11/03/2020 Sig: TAMSULOSIN [...] 30 mg (more content not included)... Normal [facility] PSA, Diagnosticon 11-01-2020 PSA, Diagnostic 0.27 ng/mL Normal 0.00-2.59 [facility] Comment on above: Result Comment: Sandra manzo PSA test methodology used is the Electrochemiluminescence Immunoassay. Performed By: #### P SA #### [facility] [address] [id number] [facility]2020 [facility] Telephone (RADTSA) -- MILAD SEYMOUR ([id number]) 1955 M Date Time Provider Department 10/29/20 [...] since completing radiation therapy. Call transferred to [facility] to move up appointment. [...] (HCC) [C61] Order(s):PSA/PROSTSPECAG DIAG [SQPSA] Order #: [id number] FUTURE Prescriptions as of 10/29/2020 Sig: TAMSULOSIN [...] Encounter Status:Closed by TILA HERRERA on 10/29/20 [facility] Giuseppe 10-08-2020 [facility] (HEMCAILIN) -- MILAD SEYMOUR ([id number]) 1955 M Date Time Provider Department 10/08/20 HEATHER BARRIGA During your visit today, we recorded the following information about you: Allergies As of Date: 10/08/2020 (No Known Allergies) Date Reviewed: 07/14/2020 Reviewed by: Joann Richardson - Fully Assessed Reason for Visit: Lab Orders [1688] Primary Visit Diagnosis:Iron deficiency anemia due to chronic blood loss [D50.0] Order(s):CBC + DIFF (FOR [facility] USE) [SQRCBCDF] Order #: [id number] FUTURE COMP METABOLIC PANEL [SQCMP] Order #: [id number] FUTURE Prescriptions as of 10/08/2020 Sig: TAMSULOSIN [...] Status:Closed by TASHA GOOD on 10/14/20 Normal [facility] OBSOLETEon 09-20-2020 OBSOLETE Refill (RADTSA) -- LIONMILAD ([id number]) 1955 M Date Time Provider Department 09/20/20 [...] Status:Closed by TILA HERRERA on 10/14/20 Normal [facility] Vital Signs Date Time Vital Sign Value Performing Clinician Facility 02-04-2024 11:45-0400 Diastolic blood pressure 74 mm[Hg] Petersonpercy PETERSEN [facility] 02-04-2024 11:45-0400 Heart rate 66 /min Peterson PETERSEN [facility] 02-04-2024 11:45-0400 Respiratory rate 16 /min Peterson PETERSEN [facility] 02-04-2024 11:45-0400 Systolic blood pressure 116 mm[Hg] Petersonpercy PETERSEN [facility] 08-15-2023 13:35-0500 Diastolic blood pressure 60 mm[Hg] Gregoriamyah Ralph SENIOR INTERNET SALES CONSULTANT-ASSOCIATE BIOLOGICAL SALES Work Phone: [facility] 08-15-2023 13:35-0500 Systolic blood pressure 107 mm[Hg] Gregoria Sheagel SENIOR INTERNET SALES CONSULTANT-ASSOCIATE BIOLOGICAL SALES Work Phone: [facility] 08-15-2023 13:33-0500 Body height 175.3 cm Gregoriamyah Valdiviagel SENIOR INTERNET SALES CONSULTANT-ASSOCIATE BIOLOGICAL SALES Work Phone: [facility] 08-15-2023 13:33-0500 Body mass index (BMI) [Ratio] 36.77 kg/m2 Gregoriamyah Valdiviagel SENIOR INTERNET SALES CONSULTANT-ASSOCIATE BIOLOGICAL SALES Work Phone: [facility] 08-15-2023 13:33-0500 Body weight 112.95 kg Gregoriamyah Valdiviagel SENIOR INTERNET SALES CONSULTANT-ASSOCIATE BIOLOGICAL SALES Work Phone: [facility] 08-15-2023 13:33-0500 Heart rate 81 /min Gregoriamyah Valdiviagel SENIOR INTERNET SALES CONSULTANT-ASSOCIATE BIOLOGICAL SALES Work Phone: [facility] 08-15-2023 13:33-0500 SaO2% (BldA) [Mass fraction] 95 % Gregoria Ralph SENIOR INTERNET SALES CONSULTANT-ASSOCIATE BIOLOGICAL SALES Work Phone: [facility] 07-30-2023 11:16-0500 Body height 177.8 cm Ashli Petznick DO Work Phone: [facility] 07-30-2023 11:16-0500 Body mass index (BMI) [Ratio] 36.16 kg/m2 Ashli Petznick DO Work Phone: [facility] 07-30-2023 11:16-0500 Body temperature 98.01 [degF] Ashli Petznick DO Work Phone: [facility] 07-30-2023 11:16-0500 Body weight 114.31 kg Ashli Petznick DO Work Phone: [facility] 07-30-2023 11:16-0500 Diastolic blood pressure 62 mm[Hg] Ashli Petznick DO Work Phone: [facility] 07-30-2023 11:16-0500 Heart rate 66 /min Ashli Petznick DO Work Phone: [facility] 07-30-2023 11:16-0500 SaO2% (BldA) [Mass fraction] 97 % Ashli Petznick DO Work Phone: [facility] 07-30-2023 11:16-0500 Systolic blood pressure 116 mm[Hg] Ashli Petznick DO Work Phone: [facility] 07-17-2023 09:22-0500 Diastolic blood pressure 73 mm[Hg] MD Dank Campo Work Phone: [facility] 07-17-2023 09:22-0500 Heart rate 70 /min MD Dank Campo Work Phone: [facility] 07-17-2023 09:22-0500 Respiratory rate 18 /min MD Dank Campo Work Phone: [facility] 07-17-2023 09:22-0500 SaO2% (BldA) [Mass fraction] 97 % MD Dank Campo Work Phone: [facility] 07-17-2023 09:22-0500 Systolic blood pressure 173 mm[Hg] MD Dank Campo Work Phone: [facility] 07-17-2023 09:20-0500 Body height 177.8 cm MD Dank Campo Work Phone: [facility] 07-17-2023 09:20-0500 Body weight 111.13 kg MD Dank Campo Work Phone: [facility] 04-27-2023 12:40-0500 Diastolic blood pressure 68 mm[Hg] MD Dank Campo Work Phone: [facility] 04-27-2023 12:40-0500 Heart rate 75 /min MD Dank Campo Work Phone: [facility] 04-27-2023 12:40-0500 Respiratory rate 16 /min MD Dank Campo Work Phone: [facility] 04-27-2023 12:40-0500 SaO2% (BldA) [Mass fraction] 97 % MD Dank Campo Work Phone: [facility] 04-27-2023 12:40-0500 Systolic blood pressure 110 mm[Hg] MD Dank Campo Work Phone: [facility] 04-27-2023 10:29-0500 Body height 177.8 cm MD Dank Campo Work Phone: [facility] 04-27-2023 10:29-0500 Body weight 113.39 kg MD Dank Campo Work Phone: [facility] 04-10-2023 14:00-0400 Body height 177.8 cm Imad Asaad Other [facility] Other 04-10-2023 14:00-0400 Body mass index (BMI) [Ratio] 36.3 kg/m2 Imad Asaad Other [facility] Other 04-10-2023 14:00-0400 Body weight 114.76 kg Imad Asaad Other [employer] [facility] Other 04-10-2023 14:00-0400 Diastolic blood pressure 68 mm[Hg] Imad Asaad Other [employer] [facility] Other 04-10-2023 14:00-0400 Systolic blood pressure 113 mm[Hg] Imad Asaad Other [facility] Other 02-12-2023 09:46-0400 Blood Pressure Location Peterson PETERSEN [facility] 02-12-2023 09:46-0400 Diastolic blood pressure 90 mm[Hg] Peterson PETERSEN [facility] 02-12-2023 09:46-0400 Heart rate 68 /min Petersonpercy PETERSEN [facility] 02-12-2023 09:46-0400 Respiratory rate 16 /min Peterson PETERSEN [facility] 02-12-2023 09:46-0400 Systolic blood pressure 138 mm[Hg] Peterson PETERSEN [facility] 07-24-2022 13:52-0500 Diastolic blood pressure 78 mm[Hg] MD Dank Campo Work Phone: [facility] 07-24-2022 13:52-0500 Heart rate 71 /min MD Dank Campo Work Phone: [facility] 07-24-2022 13:52-0500 Respiratory rate 16 /min MD Dank Campo Work Phone: [facility] 07-24-2022 13:52-0500 SaO2% (BldA) [Mass fraction] 96 % MD Dank Campo Work Phone: [facility] 07-24-2022 13:52-0500 Systolic blood pressure 136 mm[Hg] MD Dank Campo Work Phone: [facility] 07-24-2022 12:29-0500 Body height 177.8 cm MD Dank Campo Work Phone: [facility] 07-24-2022 12:29-0500 Body temperature 98 [degF] MD Dank Campo Work Phone: [facility] 07-24-2022 12:29-0500 Body weight 115.66 kg MD Dank Campo Work Phone: [facility] 07-20-2022 10:00-0500 Body height 177.8 cm Imad Asaad Other [facility] Other 07-20-2022 10:00-0500 Body mass index (BMI) [Ratio] 36.73 kg/m2 Imad Asaad Other [facility] Other 07-20-2022 10:00-0500 Body weight 116.12 kg Imad Asaad Other [facility] Other 07-20-2022 10:00-0500 Diastolic blood pressure 96 mm[Hg] Imad Asaad Other [facility] Other 07-20-2022 10:00-0500 Systolic blood pressure 170 mm[Hg] Imad Asaad Other [facility] Other 02-03-2022 08:29-0400 Blood Pressure Location Peterson PETERSEN [facility] 02-03-2022 08:29-0400 Diastolic blood pressure 88 mm[Hg] Peterson PETERSEN [facility] 02-03-2022 08:29-0400 Heart rate 75 /min Peterson PETERSEN [facility] [place] 02-03-2022 08:29-0400 Respiratory rate 16 /min Peterson PETERSEN [facility] 02-03-2022 08:29-0400 Systolic blood pressure 138 mm[Hg] Peterson [facility]ERSEN [facility] En[facility] Encounter Date Encounter Type Care Provider Facility Start: 02-09-2025 ambulatory Peterson PETERSEN Facili ty:[facility] Start: 02-25-2024 End: 02-25-2024 ambulatory [facility] Start: 02-04-2024 End: 02-04-2024 ambulatory Peterson PETERSEN Facility:[facility] Start: 02-04-2024 End: 02-04-2024 Patient encounter procedure Peterson PETERSEN [facility] Start: 01-31-2024 End: 01-31-2024 ambulatory ASHLI ROSS Not Available Start: 01-28-2024 End: 01-28-2024 ambulatory Peterson PETERSEN Facility:[facility] Start: 01-28-2024 End: 01-28-2024 Patient encounter procedure Peterson PETERSEN [facility] Start: 12-13-2023 End: 12-15-2023 ambulatory [facility] Start: 12-05-2023 End: 12-05-2023 ambulatory DANK WEBSTERR Not Available Start: 11-22-2023 End: 11-22-2023 ambulatory DEXTER A RUSHER Not Available Start: 11-14-2023 End: 11-14-2023 ambulatory DANK JAIMEERER Not Available Start: 11-05-2023 End: 11-06-2023 ambulatory Roma Lopez MD Facility: [facility] Start: 10-31-2023 End: 10-31-2023 ambulatory DEXTER A RUSHER Not Available Start: 10-30-2023 End: 10-30-2023 ambulatory Dank Websterr Facility:[facility] Start: 10-30-2023 End: 10-30-2023 ambulatory ASHLI ROSS Not Available Start: 10-17-2023 End: 10-17-2023 ambulatory DEXTER A RUSHER Not Available Start: 10-15-2023 End: 10-16-2023 ambulatory [...] Available Start: 08-29-2023 End: 08-29-2023 ambulatory DANK JAIMEERER Not Available Start: 08-27-2023 Telephone encounter Aliza Rec[facility] Start: 08-23-2023 End: 08-24-2023 ambulatory [facility] Start: 08-22-2023 End: 08-22-2023 ambulatory Dank Campo Facility:[facility] Start: 08-20-2023 End: 08-20-2023 ambulatory Dank Campo Facility:[facility] Start: 08-17-2023 Telephone encounter Gregoria Manzo Alayna porsharoderick SENIOR INTERNET SALES CONSULTANT-ASSOCIATE BIOLOGICAL SALES Work Phone: [facility] - [facility] Disorders Comment on above: Sleep Lab (CPAP) Start: 08-15-2023 End: 08-15-2023 Office outpatient visit 25 minutes Gregoria Ralph SENIOR INTERNET SALES CONSULTANT-ASSOCIATE BIOLOGICAL SALES [facility] Comment on above: Personal history of tobacco use, presenting hazards to health (Primary Dx); Obstructive sleep apnea syndrome; CSA (central sleep apnea) Start: 08-15-2023 End: 08-15-2023 ambulatory [facility] Start: 08-09-2023 End: 08-09-2023 Patient encounter procedure MD Dank Campo Work Phone: [facility] Work Phone: Start: 08-09-2023 End: 08-09-2023 ambulatory MD Dank Campo Work Phone: [facility] Work Phone: Start: 08-09-2023 End: 08-09-2023 ambulatory DEXTER KRISHNAMURTHY Not Available Start: 08-02-2023 Telephone encounter Aliza whaley [facility] Start: 08-01-2023 Chart abstracting [...] (BMI) of 36.0 to 36.9 in adult ([facility]) (Primary Dx); Type 2 diabetes mellitus with diabetic polyneuropathy, with long-term current use of insulin ([facility]) Start: 07-30-2023 End: 07-30-2023 ambulatory ASHLI ROSS Not Available Start: 07-24-2023 End: 07-24-2023 Patient encounter procedure MD Dank Campo Work Phone: [facility]-XRay [address] [place] Work Phone: Start: 07-24-2023 End: 07-24-2023 ambulatory Edd Holden Facility:[facility] Start: 07-17-2023 End: 07-17-2023 Patient encounter procedure MD Dank Campo Work Phone: [facility] [address] [place] Work Phone: Start: 07-17-2023 End: 07-17-2023 ambulatory MD Dank Campo Work Phone: [facility] Work Phone: Start: 06-26-2023 End: 06-26-2023 ambulatory MD Dank Campo Work Phone: [facility] Work Phone: Start: 06-26-2023 End: 06-26-2023 Patient encounter procedure MD Dank Campo Work Phone: [facility]-MRI [address] Work Phone: Start: 06-07-2023 End: 06-07-2023 ambulatory DANK CAMPO Not Available Start: 05-14-2023 End: 05-14-2023 ambulatory EDD HOLDEN Not Available Start: 05-09-2023 End: 05-09-2023 ambulatory DEXTER KRISHNAMURTHY Not Available Start: 05-04-2023 End: 05-04-2023 ambulatory ASHLI ROSS Not Available Start: 05-02-2023 End: 05-02-2023 ambulatory DEXTER KRISHNAMURTHY Not Available Start: 04-30-2023 End: 04-30-2023 ambulatory EDD JESUSEN Not Available Start: 04-27-2023 End: 04-27-2023 Admission to same day surgery center MD Dank Campo Work Phone: [facility] Work Phone: Start: 04-27-2023 End: 04-27-2023 ambulatory MD Dank Campo Work Phone: [facility] Work Phone: Start: 04-10-2023 End: 04-10-2023 ambulatory Imad Asaad Other [facility] Other Start: 04-10-2023 Office outpatient ne w 45 minutes Imad Asaad [facility] Start: 03-20-2023 End: 03-20-2023 ambulatory Imad Asaad Other [facility] Other Start: 03-20-2023 Telephone encounter Imad Asaad [facility] Start: 02-12-2023 End: 02-12-2023 ambulatory Peterson PETERSEN Facility:[facility] Start: 02-12-2023 End: 02-12-2023 Patient encounter procedure Peterson PETERSEN [facility] Start: 02-06-2023 End: 02-06-2023 Lab Drop off ROSALVA MURO [facility] Start: 02-06-2023 End: 02-06-2023 ambulatory ROSALVA MURO Facility:[facility] Start: 02-06-2023 End: 02-06-2023 Patient encounter procedure DEJUAN PETERSEN [facility] Start: 10-17-2022 End: 10-18-[address] DANK CAMPO Facility:[facility] Start: 09-20-2022 End: 09-20-2022 ambulatory Imad Asaad Other [facility] Other Start: 09-20-2022 Telephone encounter Imad Asaad [facility] Start: 09-14-2022 End: 09-14-[address] DANK CAMPO Facility:[facility] Start: 09-12-2022 End: 09-13-[address] DANK CAMPO Facility:[facility] Start: 07-24-2022 Telephone encounter Imad Asaad [facility] Start: 07-24-2022 End: 07-24-2022 Admission to same day surgery center MD Dank Campo Work Phone: [facility] Work Phone: Start: 07-24-2022 End: 07-24-2022 ambulatory MD Dank Campo Work Phone: [facility] Work Phone: Start: 07-20-2022 End: 07-20-2022 ambulatory Imad Asaad Other [facility] Other Start: 07-20-2022 Patient encounter procedure Imad Asaad [facility] Start: 05-10-2022 End: 05-11-[address] DANK CAMPO Facility:[facility] Start: 04-14-2022 End: 04-15-[address] SORIN SHORE Facility:[facility] Start: 02-03-2022 End: 02-03-2022 Patient encounter procedure Peterson PETERSEN [facility] Start: 01-30-2022 End: 01-31-2022 ambulatory MR REBECCA KING . Facility:[facility] Start: 01-27-2022 End: 01-28-[address] PETERSON PETERSEN . Facility:[facility] Procedures Date Procedure Procedure Detail Performing Clinician Start: 02-25-2024 Follow-up visit Follow-up HANNA BUTCHER Start: 07-30-2023 Hemoglobin glycosylated a1c Ashli green DO Work Phone: Start: 07-24-2023 CT of left shoulder with contrast MD Reina Campo Work Phone: Start: 04-27-2023 End: 04-27-2023 Colonoscopy MD Dank Campo Work Phone: Start: 07-24-2022 Esophagogastroduodenoscopy MD Dank Mckinley er Work Phone: Start: 03-18-2021 Laparoscopic cholecystectomy Peterson MARA GOODE Start: 01-16-2020 Radiation (physical force) Peterson GABRIEL S Comment on above: 12/08/2019 - 01/16/2020 12/08/2019 - 020 Start: 09-23-2019 Transrectal biopsy of prostate using ultrasound guidance Peterson PETERSEN Start: 09-03-2018 Transrectal biopsy of prostate using ultrasound guidance Peterson PETERSEN Appendectomy Peterson PETERSEN Colonoscopy Peterson PETRESEN History of repair of musculotendinous cuff of shoulder H/O rotator cuff surgery MD Dank Campo Work Phone: Partial repair of rotator cuff Peterson PETERSEN Tonsillectomy Peterson PETERSEN Plan of Treatment Date Care Activity Detail Author Start: 04-27-2033 Screening for malignant neoplasm of colon [facility] Start: 01-20-2031 DTaP,Tdap and Td Vaccines (3 - Td or Tdap) DTaP,Tdap and Td Vaccines (3 - Td or Tdap) [facility] Start: 08-15-2024 Adult BMI Screening Adult BMI Screening [facility] Start: 08-15-2024 Tobacco Screening Tobacco Screening [facility] Start: 02-25-2024 End: 02-25-2024 Patient encounter procedure 02/25/2024 10:30 AM EDT [facility] [address] [place] [id number] Hanna Butcher MD [address] [facility] [address] [place] [address] [facility] Start: 11-19-2023 End: 11-19-2023 Clinical Support 11/19/2023 8:00 PM EDT Clinical Support [facility] [address] [place] [address] [facility] Start: 10-29-2023 End: 10-29-2023 Patient encounter procedure 10/29/2023 1:15 PM EDT Office Visit [facility] [address] [place] [phone] Ashli Ross DO [address] [place] [address] [facility] [address] Start: 10-28-2023 Hemoglobin A1c measurement Diabetes: Hemoglobin A1C [facility] Start: 08-29-2023 End: 08-29-2023 Patient encounter procedure 08/29/2023 7:45 AM EDT Office Visit [facility] [address] [place] [address] Dank Campo MD [address] [place] [address] [facility] Start: 08-23-2023 End: 08-23-2023 Patient encounter procedure [facility] Start: 08-15-2023 End: 08-15-2024 CT Chest for screening WO contrast CT low dose lung screenin (3mo 6mo follow-up) Imaging Routine Personal history of tobacco use, presenting hazards to health Expected: 08/15/2023, Expires: 08/15/2024 [employer] Work Phone: Comment on above: Expected: 08/15/2023, Expires: Start: 08-15-2023 End: 08-15-2024 Echo complete W/O contrast Echo complete W/O contrast Echocardiography Routine Obstructive sleep apnea syndrome CSA (central sleep apnea) Expected: 08/15/2023, Expires: 08/15/2024 [facility] Comment on above: Expected: 08/15/2023, Expires: Start: 08-09-2023 End: 08-09-2023 Patient encounter procedure 08/09/2023 8:30 AM EST Office Visit [facility] [address] [place] [phone] Dexter Krishnamurthy, DPM [address] [place], [place] [id number] [facility] Start: 08-01-2023 End: 08-01-2023 Patient encounter procedure 08/01/2023 10:30 AM EST Office Visit [facility] [address] [place] [phone] Jr. Johanne Hdez, DO [address] [address] [facility] Start: 04-27-2023 [facility] Start: 04-11-2023 Administration of varicella zoster vaccine Zoster (Shingles) Vaccine (3 of 3) [facility] Start: 02-16-2023 COVID-19 Vaccine ( season) COVID-19 Vaccine ( season) [facility] Start: 02-16-2023 COVID-19 Vaccine ( season) COVID-19 Vaccine ( season) [facility] Start: 02-16-2023 Influenza vaccination Influenza Vaccine [facility] Start: 07-24-2022 [facility] Start: 04-15-2022 Adult BMI Screening Adult BMI Screening [facility] Start: 09-15-2020 Fall Risk Screening Fall Risk Screening [facility] Start: 09-15-1974 Urine screening for protein Diabetes: Urine Protein Screening [facility] Start: 09-15-1973 Adult BMI Follow Up Plan Adult BMI Follow Up Plan [facility] Start: 1967 Depression Screening Depression Screening [facility] Start: 1967 Tobacco Screening Tobacco Screening [facility] Start: 09-15-1965 Glaucoma screening Diabetes: Retinopathy Screening [facility] Start: 1955 Medicare Annual Wellness (AWV) Medicare Annual Wellness (AWV) [facility] Start: 1955 Screening for malignant neoplasm of colon [facility] Patient Education [facility] Work Phone: End: 08-15-2024 Polysomnography 4 or more parameters with PAP titration Polysomnography 4 or more parameters with PAP titration Sleep Center Routine Obstructive sleep apnea syndrome CSA (central sleep apnea) 1 Occurrences starting 08/15/2023 until 08/15/2024 [facility] Comment on above: 1 Occurrences starting 08/15/2023 until 08/15/2024 Immunizations Immunization Date Immunization Notes Care Provider Kiera johnston 04-22-2023 zoster vaccine recombinant Ashli Petznick DO Work Phone: [facility] 03-23-2023 RSV, recombinant, protein subunit RSVpreF, adjuvant reconstitu, 120mcg/0.5mL, PF (Arexvy) AshliTorqeedoznShopSpot DO Work Phone: [facility] 02-14-2023 Influenza, Seasonal, Quadrivalent, Adjuvanted Ashli PetznShopSpot DO Work Phone: [facility] 02-14-2023 zoster vaccine recombinant Ashli Petznick DO Work Phone: [facility] 02-14-2023 influenza virus vaccine, unspecified formulation Aliza Escalera [facility] 02-14-2023 zoster vaccine, unspecified formulation Aliza Escalera [facility] 04-09-2022 COVID-19 mRNA Bivale nt Booster (Pfizer) MD Dank Campo Work Phone: [facility] 04-09-2022 influenza virus vaccine, unspecified formulation [facility] 04-09-2022 Influenza, Seasonal, Quadrivalent, Adjuvanted Ashli Petznick DO Work Phone: [facility] 04-13-2021 COVID-19 Alfred Hightower (Pfizer) MD Dank Campo Work Phone: [facility] 02-22-2021 influenza virus vaccine, unspecified formulation [facility] 02-22-2021 Influenza, Seasonal, Quadrivalent, Adjuvanted Ashli Petznick DO Work Phone: [facility] 02-22-2021 pneumococcal polysaccharide vaccine, 23 valent Ashli Petznick DO Work Phone: [facility] 02-16-2021 pneumococcal conjuga te vaccine, 13 valent [facility] 01-20-2021 tetanus and diphther ia toxoids, adsorbed, preservative free, for adult use (5 Lf of tetanus toxoid and 2 Lf of diphtheria toxoid) Imad Asaad [facility] Other 01-20-2021 tetanus and diphther ia toxoids, adsorbed, preservative free, for adult use (2 Lf of tetanus toxoid and 2 Lf of diphtheria toxoid) [facility] 01-17-2021 influenza virus vaccine, unspecified formulation [facility] 01-17-2021 influenza, seasonal, injectable Ashli Petznick DO Work Phone: [facility] 01-17-2021 Moderna SARS-CoV-2 Vaccination Ashli Petznick DO Work Phone: [facility] 10-16-2020 SARS-CoV-2 (COVID-19 ) mRNA BNT-162b2 vax Peterson PETERSEN [facility] 10-01-2020 COVID-19 mRNAAlfred (Pfizer) MD Dank Campo Work Phone: [facility] 09-08-2020 COVID-19 mRNA Comirnatyunier (Pfizer) MD Dank Campo Work Phone: [facility] 02-17-2020 influenza virus vaccine, unspecified formulation Peterson PETERSEN [facility] 02-17-2020 influenza, injectabl e, quadrivalent, preservative free Ashli Petznick DO Work Phone: [facility] 02-09-2020 influenza, high dose seasonal, preservative-free Ashli Petznick DO Work Phone: [facility] 03-15-2019 influenza virus vaccine, unspecified formulation Petersonpercy PETERSEN [facility] 03-15-2019 influenza, injectabl e, quadrivalent, preservative free Ashli Petznick DO Work Phone: [facility] 02-25-2018 influenza virus vaccine, unspecified formulation Peterson PETERSEN [facility] 02-25-2018 influenza, injectabl e, quadrivalent, preservative free Ashli Petznick DO Work Phone: [facility] 05-30-2017 pneumococcal conjuga te vaccine, 13 valent Ashli Petznick DO Work Phone: [facility] 05-30-2017 pneumococcal polysaccharide vaccine, 23 valent Ashli Petznick DO Work Phone: [facility] 03-02-2017 influenza nasal, unspecified formulation Ashli Petznick DO Work Phone: [facility] 03-02-2017 influenza virus [facility], unspecified [facility] 03-02-2017 influenza, injectabl e, quadrivalent, preservative free Ashli Petznick DO Work Phone: [facility] 03-05-2016 influenza virus vaccine, unspecified formulation Peterson PETERSEN [facility] 03-05-2016 influenza, injectabl e, quadrivalent, preservative free Ashli Petznick DO Work Phone: [facility] 03-05-2016 influenza, seasonal, injectable Ashli Petznick DO Work Phone: [facility] 02-18-2015 zoster vaccine, live Ashli Petznick DO Work Phone: [facility] 02-01-2015 influenza virus vaccine, unspecified formulation Peterson PETERSEN [facility] 02-01-2015 influenza, seasonal, injectable Ashli Petznick DO Work Phone: [facility] 08-18-2014 tetanus toxoid, redu inocencio diphtheria toxoid, and acellular pertussis vaccine, adsorbed Ashli Petznick DO Work Phone: [facility] 08-04-2013 pneumococcal conjuga te vaccine, 13 valent Ashli Petznick DO Work Phone: [facility] Payers Date Payer Category Payer Self-pay [id number] 2023 Unknown [id number] 2020 Medicare [id number] 2013 Unknown [id number]. 1.13.424.2.7.3.678 [id number] 1959 Medicare [id number] 1955 Unknown [id number] 2.16.840.1.264507.3.579.2.593 1955 Unknown [id number] 2.16.840.1.325573.3.579.2.593 1955 Unknown [id number] 2.16.840.1.942488.3.579.2.593 1955 Unknown [id number] 2.16.840.1.942991.3.579.2.593 1955 Unknown [id number] 2.16.840.1.518652.3.579.2.593 1955 Unknown [id number] 2.16.840.1.682656.3.579.2.593 1955 Unknown [id number] 2.16.840.1.337506.3.579.2.593 1955 Unknown [id number] 2.16.840.1.214884.3.579.2.593 1955 Unknown [id number] 2.16.840.1.401084.3.579.2.1286 1955 Unknown [id number] 2.16.840.1.042296.3.579.2.1286 1955 Unknown [id number] 2.16.840.1.485968.3.579.2.196 1955 Unknown [id number] 2.16.840.1.714723.3.579.2.196 1955 Unknown [id number] 2.16.840.1.374805.3.579.2.196 1955 Unknown [id number] 2.16.840.1.210923.3.579.2.1286 1955 Unknown [id number] 2.16.840.1.038809.3.579.2.1259 1955 Unknown [id number] 2.16.840.1.750741.3.579.2.1258 1955 Unknown [id number] 2.16.840.1.341760.3.579.2.1258 1955 Unknown [id number] 2.16.840.1.211590.3.579.2.1258 1955 Unknown [id number] 2.16.840.1.638776.3.579.2.1258 1955 Unknown [id number] 2.16.840.1.917247.3.579.2.1258 1955 Unknown [id number] 2.16.840.1.092366.3.579.2.1258 1955 Unknown [id number] 2.16.840.1.584315.3.579.2.1258 1955 Unknown [id number] 2.16.840.1.244772.3.579.2.1258 1955 Unknown [id number] 2.16.840.1.157659.3.579.2.1258 1955 Unknown [id number] 2.16.840.1.054660.3.579.2.1258 1955 Unknown [id number] 2.16.840.1.553033.3.579.2.1258 1955 Unknown [id number] 2.16.840.1.889343.3.579.2.1258 1955 Unknown [id number] 2.16.840.1.795294.3.579.2.1258 1955 Unknown [id number] 2.16.840.1.237867.3.579.2.1258 1955 Unknown [id number] 2.16.840.1.233350.3.579.2.1258 1955 Unknown [id number] 2.16.840.1.698510.3.579.2.1259 1955 Unknown [id number] 2.16.840.1.523869.3.579.2.1259 1955 Unknown [id number] 2.16.840.1.305042.3.579.2.1259 1955 Unknown [id number] 2.16.840.1.001175.3.579.2.1259 1955 Unknown [id number] 2.16.840.1.147181.3.579.2.1259 1955 Unknown [id number] 2.16.840.1.560139.3.579.2.1259 1955 Unknown [id number] 2.16.840.1.798495.3.579.2.727 1955 Unknown [id number] 2.16.840.1.393834.3.579.2.727 1955 Unknown [id number] 2.16.840.1.369280.3.579.2.727 1955 Unknown [id number] 2.16.840.1.520708.3.579.2.727 1955 Unknown [id number] 2.16.840.1.829389.3.579.2.727 1955 Unknown [id number] 2.16.840.1.047468.3.579.2.727 1955 Unknown [id number] 2.16.840.1.423288.3.579.2.1286 1955 Unknown [id number] 2.16.840.1.914085.3.579.2.1286 Medicare Medicare [id number] Unknown [employer] BC/BS [id number] Unknown Regular Insurance [id number] Unknown [id number] 2.16.840.1.351508.3.579.2.531 Unknown [id number] 2.16.840.1.018858.3.579.2.531 Unknown [id number] 2.16.840.1.526590.3.579.2.531 Unknown [id number] 2.16.840.1.490767.3.579.2.531 Unknown [id number] 2.16.840.1.186941.3.579.2.531 Unknown [id number] 2.16.840.1.703313.3.579.2.531 Unknown [id number] 2.16.840.1.975310.3.579.2.531 Worker's Compensation [employer] [id number] Worker's Compensation [id number] Social History Date Type Detail Facility Start: 02-03-2022 End: 02-04-2024 Ex-smoker (finding) [facility] Start: 06-29-2020 End: 01-09-2023 Male [facility] Start: 1955 Sex Assigned At Male F [facility] Start: 06-18-1974 End: 2021 History of tobacco use Current smoker [facility] Start: 06-18-1974 End: 2021 History of tobacco use Cigarette Smoker [facility] Start: 06-29-2020 End: 12-11-2022 Cigarettes smoked current (pack per day) - Reported 1.5 [facility] Start: 12-11-2022 End: 08-15-2023 Tobacco use and exposure Smokeless tobacco non-user [facility] Start: 07-30-2023 Alcohol intake Ex-drinker (finding) [facility] [...] -6 months agoHeavy cigarette smoker (20-39 cigs/day) [facility] Start: 05-01-2023 Alcohol Comment Caffeine intake: non e [facility] Start: 1955 Sex Assigned At Not on file N [facility] Start: 12-22-2020 Tobacco smoking stat [facility] Smokes tobacco daily [facility] Start: 04-15-2021 End: 08-16-2023 Alcohol intake Current non-drinker of alcohol (finding) [facility] Medical Equipment Procedure Code Equipment Code Equipment Origin al Text Equipment Identifier Dates EGD (esophagogastroduod enoscopy) Video capsule endoscopy system [id number] FDA Start: 08-18-2020 USE DIRECTED FOUR TIMES DAILY [id number] Start: 10-09-2022 use to test BLOO D SUGAR THREE TIMES DAILY [id number] Start: 09-19-2022 use to test BLOO D SUGAR THREE TIMES DAILY [id number] Start: 11-01-2022 Teja 4.75 - Sna - [id number] Start: 12-10-2017 Princess/Teja 4.75 Use [id number] - Sna - [id number] Start: 07-19-2020 Goals Date Patient Goal Desired Activity /State Personal health goal Comment on above: Formatting of this n ote might be different from the original. Evaluation of progress towards goal: Home self care with childrens support Functional Status Date Assessment Result Facility 02-04-2024 Functional Status N/A [facility] 02-12-2023 Functional Status N/A [facility] 02-03-2022 N/A [facility] Clinical Notes 11-04-2020 to 02-04-2024 Telephone Encounter - Aliza Escalera - 08/27/2023 10:11 AM EDTTelephone Encounter - Aliza Escalera - 08/27/2023 10:11 AM EDTTelephone Encounter - Zoraida Rosario - 08/17/2023 9:53 AM EST Note Date & Type Note Facility 02-04-2024 Hospital Discharg e instructions Patient Education 02/04/2024 12:42:37 Prostate Cancer Screening Prostate Cancer Screening Prostate cancer screening is testing that is done to check for the presence of prostate cancer in men. The prostate gland is a walnut-sized gland that is located below the bladder and in front of the rectum in males. The function of the prostate is to add fluid to semen during ejaculation. Prostate cancer is one of the most common types of cancer in men. Who should have prostate cancer screening? Screening recommendations vary based on age and other risk factors, as well as between the professional organizations who make the recommendations. In general, screening is recommended if: You are age 50 to 70 and have an average risk for prostate cancer. You should talk with your health care provider about your need for screening and how often screening should be done. Because most prostate cancers are slow growing and will not cause , screening in this age group is generally reserved for men who have a 10- to 15-year life expectancy. You are younger than age 50, and you have these risk factors: ?Having a father, brother, or uncle who has been diagnosed with prostate cancer. The risk is higher if your family member's cancer occurred at an early age or if you have multiple family members with prostate cancer at an early age. ?Being a male who is Black or is of [place] or sub-Saharan descent. In general, screening is not recommended if: You are younger than age 40. You are between the ages of 40 and 49 and you have no risk factors. You are 70 years of age or older. At this age, the risks that screening can cause are greater than the benefits that it may provide. If you are at high risk for prostate cancer, your health care provider may recommend that you have screenings more often or that you start screening at a younger age. How is screening for prostate cancer done? The recommended prostate cancer screening test is a blood test called the prostate-specific antigen (PSA) test. PSA is a protein that is made in the prostate. As you age, your prostate naturally produces more PSA. Abnormally high PSA levels may be caused by: Prostate cancer. An enlarged prostate that is not caused by cancer (benign prostatic hyperplasia, or BPH). This condition is very common in older men. A prostate gland infection (prostatitis) or urinary tract infection. Certain medicines such as male hormones (like testosterone) or other medicines that raise testosterone levels. A rectal exam may be done as part of prostate cancer screening to help provide information about the size of your prostate gland. When a rectal exam is performed, it should be done after the PSA level is drawn to avoid any effect on the results. Depending on the PSA results, you may need more tests, such as: A physical exam to check the size of your prostate gland, if not done as part of screening. Blood and imaging tests. A procedure to remove tissue samples from your prostate gland for testing (biopsy). This is the only way to know for certain if you have prostate cancer. What are the benefits of prostate cancer screening? Screening can help to identify cancer at an early stage, before symptoms start and when the cancer can be treated more easily. There is a small chance that screening may lower your risk of dying from prostate cancer. The chance is small because prostate cancer is a slow-growing cancer, and most men with prostate cancer from a different cause. What are the risks of prostate cancer screening? The main risk of prostate cancer screening is diagnosing and treating prostate cancer that would never have caused any symptoms or problems. This is called overdiagnosisand overtreatment. PSA screening cannot tell you if your PSA is high due to cancer or a different cause. A prostate biopsy is the only procedure to diagnose prostate cancer. Even the results of a biopsy may not tell you if your cancer needs to be treated. Slow-growing prostate cancer may not need any treatment other than monitoring, so diagnosing and treating it may cause unnecessary stress or other side effects. Questions to ask your health care provider When should I start prostate cancer screening? What is my risk for prostate cancer? How often do I need screening? What type of screening tests do I need? How do I get my test results? What do my results mean? Do I need treatment? Where to find more information The [employer]: www.cancer.org [employer]: www.auanet.org Contact a health care provider if: You have difficulty urinating. You have pain when you urinate or ejaculate. You have blood in your urine or semen. You have pain in your back or in the area of your prostate. Summary Prostate cancer is a common type of cancer in men. The prostate gland is located below the bladder and in front of the rectum. This gland adds fluid to semen during ejaculation. Prostate cancer screening may identify cancer at an early stage, when the cancer can be treated more easily and is less likely to have spread to other areas of the body. The prostate-specific antigen (PSA) test is the recommended screening test for prostate cancer, but it has associated risks. Discuss the risks and benefits of prostate cancer screening with your health care provider. If you are age 70 or older, the risks that screening can cause are greater than the benefits that it may provide. This information is not intended to replace advice given to you by your health care provider. Make sure you discuss any questions you have with your health care provider. Document Revised: 11/28/2021 Document Reviewed: 11/28/2021 [employer] Patient Education 2022 [email or web address]. Follow Up Care 02/12/2023 10:16:19 With:INCOLA RAYMUNDO, Peterson Owens, URL Address: [facility] [address] , [place] [address]- [phone] When: Unknown [facility] 02-04-2024 Note Patient Education Oncology Prostate Cancer Screening Prostate cancer screening is testing that is done to check for the presence of prostate cancer in men. The prostate gland is a walnut-sized gland that is located below the bladder and in front of the rectum in males. The function of the prostate is to add fluid to semen during ejaculation. Prostate cancer is one of the most common types of cancer in men. Who should have prostate cancer screening? Screening recommendations vary based on age and other risk factors, as well as between the professional organizations who make the recommendations. In general, screening is recommended if: ? You are age 50 to 70 and have an average risk for prostate cancer. You should talk with your health care provider about your need for screening and how often screening should be done. Because most prostate cancers are slow growing and will not cause , screening in this age group is generally reserved for men who have a 10- to 15-year life expectancy. ? You are younger than age 50, and you have these risk factors: ? Having a father, brother, or uncle who has been diagnosed with prostate cancer. The risk is higher if your family member's cancer occurred at an early age or if you have multiple family members with prostate cancer at an early age. ? Being a male who is Black or is of [place] or sub-Saharan descent. In general, screening is not recommended if: ? You are younger than age 40. ? You are between the ages of 40 and 49 and you have no risk factors. ? You are 70 years of age or older. At this age, the risks that screening can cause are greater than the benefits that it may provide. If you are at high risk for prostate cancer, your health care provider may recommend that you have screenings more often or that you start screening at a younger age. How is screening for prostate cancer done? The recommended prostate cancer screening test is a blood test called the prostate-specific antigen (PSA) test. PSA is a protein that is made in the prostate. As you age, your prostate naturally produces more PSA. Abnormally high PSA levels may be caused by: ? Prostate cancer. ? An enlarged prostate that is not caused by cancer (benign prostatic hyperplasia, or BPH). This condition is very common in older men. ? A prostate gland infection (prostatitis) or urinary tract infection. ? Certain medicines such as male hormones (like testosterone) or other medicines that raise testosterone levels. A rectal exam may be done as part of prostate cancer screening to help provide information about the size of your prostate gland. When a rectal exam is performed, it should be done after the PSA level is drawn to avoid any effect on the results. Depending on the PSA results, you may need more tests, such as: ? A physical exam to check the size of your prostate gland, if not done as part of screening. ? Blood and imaging tests. ? A procedure to remove tissue samples from your prostate gland for testing (biopsy). This is the only way to know for certain if you have prostate cancer. What are the benefits of prostate cancer screening? ? Screening can help to identify cancer at an early stage, before symptoms start and when the cancer can be treated more easily. ? There is a small chance that screening may lower your risk of dying from prostate cancer. The chance is small because prostate cancer is a slow-growing cancer, and most men with prostate cancer from a different cause. What are the risks of prostate cancer screening? The main risk of prostate cancer screening is diagnosing and treating prostate cancer that would never have caused any symptoms or problems. This is called overdiagnosisand overtreatment. PSA screening cannot tell you if your PSA is high due to cancer or a different cause. A prostate biopsy is the only procedure to diagnose prostate cancer. Even the results of a biopsy may not tell you if your cancer needs to be treated. Slow-growing prostate cancer may not need any treatment other than monitoring, so diagnosing and treating it may cause unnecessary stress or other side effects. Questions to ask your health care provider ? When should I start prostate cancer screening? ? What is my risk for prostate cancer? ? How often do I need screening? ? What type of screening tests do I need? ? How do I get my test results? ? What do my results mean? ? Do I need treatment? Where to find more information ? The [employer]: www.cancer.org ? [employer]: www.auanet.org Contact a health care provider if: ? You have difficulty urinating. ? You have pain when you urinate or ejaculate. ? You have blood in your urine or semen. ? You have pain in your back or in the area of your prostate. Summary ? Prostate cancer is a common type of cancer in men. The prostate gland is located below the bladder and in front of the rectum. (more content not included)... [facility] 08-27-2023 Miscellaneous Notes ----- Message from SONNY Denis sent at 08/24/2023 10:25 AM EST ----- EF >45% ok for ASV Noted below in sleep lab encounter and on appt desk for techs for titration appt documented in this encounter [facility] 08-27-2023 Telephone encounter Note ----- Message from SONNY Denis sent at 08/24/2023 10:25 AM EST ----- EF >45% ok for ASV [facility] 08-27-2023 Telephone encounter Note Noted below in sleep lab encounter and on appt desk for techs for titration appt [facility] 08-17-2023 Miscellaneous Notes 08/15 received CPAP order 08/16 Scheduled CPAP at [facility] 6/ Confirmation mailed and emailed [employer] CPAP order and 08/15 Loree notes in [facility] With TCO2 monitoring. Please obtain baseline in supine position. Starting pressure IPAP25 EPAP10 PS 5 notes CSA on last download plans for Echo prior to titration [facility]-17-2023 Telephone encounter Note 08/15 received CPAP order 3/ Scheduled CPAP at [facility] 6/3 Confirmation mailed and emailed [employer] CPAP order and 08/15 Kregel notes in epic With TCO2 monitoring. Please obtain baseline in supine position. Starting pressure IPAP25 EPAP10 PS 5 notes CSA on last download plans for Echo prior to titration [employer] 08-15-2023 History of Presen t illness Narrative [...] humidifier. Cleaning supplies with soap and water. Chilo Sleepiness Scale: Sitting and Reading: (!) Moderate [...] Anemia Unknown Arthritis Benign prostatic hyperplasia Cancer ([facility]) PROSTATE COPD (chronic obstructive pulmonary disease) ([facility] Unknown Diabetes mellitus type 2, controlled ([facility]) GERD (gastroesophageal reflux disease) History of placement [...] Titration: 03/21/19 PS08/2014 w/ AHI 95 DME: [employer] Data card was available for PAP usage [...] Standing Expiration Date: 08/15/2024 Order Specific Question: [facility] required diagnosis: Answer: Personal history of [...] Order Specific Question: Release to patient via [email or web address]? Answer: Immediate [1] Echo complete W/O contrast [...] titration Order Specific Question: Follow Up Answer: [facility] Sleep Medicine to read and follow [...] not to drive if sleepy, and to tack puller machine if sleepiness occurs while driving. Above plan [...] that have escaped final proofreading. Gregoria Gibbs [facility] Office: [phone] 2:57 PM on 08/15/2023 CC: MD Gregoria GONZALEZ APRN-CNP 08/16/23 1438 documented in this encounter [facility] 08-15-2023 Instructions SONNY Denis - 08/15/2023 1:15 PM EST If you re looking for general health and wellness resources, please visit [email or web address] documented in this encounter [facility] 08-02-2023 Miscellaneous Notes Received sleep referral from Valeria Mckeon NP. Pt is already an established pt and last saw SK in 2020- was recommended to follow up with KW. However he was a no show for his last 2 appt with our office. Chat to Tahmina to advise if still to schedule appt. documented in this encounter [facility] 08-02-2023 Telephone encounter Note Received sleep referral from Valeria Mckeon NP. Pt is already an established pt and last saw in 2020- was recommended to follow up with KW. However he was a no show for his last 2 appt with our office. Chat to Tahmina to advise if still to schedule appt. [facility] 07-30-2023 History of Presen t illness Narrative Associated Problem(s): Type 2 diabetes mellitus with diabetic polyneuropathy, with long-term current use of insulin ([facility]) During the appointment today all pertinent [...] Breakfast Lunch Dinner Snacks Drinks Premade meal ([place] and dressing) (Mac and cheese) Protein shake [...] polyneuropathy, with long-term current use of insulin ([facility]) During the appointment today all pertinent [...] (BMI) of 36.0 to 36.9 in adult ([facility]) - Primary Follow up in about [...] ( MAX 100 UNITS A DAY) LANCETS (Tango HealthTOUCH DELICA PLUS [id number]) MISC use to test BLOOD SUGAR THREE [...] BLOOD GLUC SENSOR (FREESTYLE CORNELIUS 2 SENSOR) [facility] Use as directed LOPERAMIDE (IMODIUM) 2 MG CAPSULE Take 2 mg by mouth in the morning and 2 mg before bedtime. METHOCARBAMOL (ROBAXIN) 750 MG TABLET Take 1 tablet (750 mg) by mouth in the morning and 1 tablet (750 mg) at noon and 1 tablet (750 mg) in the evening and 1 tablet (750 mg) before bedtime. documented in this encounter [facility] 04-27-2023 Procedure note [facility] 04-10-2023 Evaluation note Encounter Date Diagnosis Assessment Notes Mar, GERD (gastroesophage al reflux disease) (ICD-10 - K21.9) The patient continues to complain of ongoing regurgitation. He is taking Lansoprazole 30 mg dialy & we will increase this to 30 mg bid. Mar, Hemorrhoids (ICD-10 - K64.9) Mar, Alternating constipation and diarrhea (ICD-10 - R19.8) [facility] Other 10-03-2023 Evaluation note* Encounter Date Diagnosis Assessment Notes Treatment Notes Treatment Clinical Notes Mar, Gastroesophageal ref lux disease with esophagitis (ICD-10 - K21.0) [facility] Other 08-28-2023 Hospital Discharge instructions Patient Education [...] stress of having cancer. General instructions Take lqlo-ucj-ibqhkrp and prescription medicines only as told by your health care provider. If you have to go to the hospital, notify your cancer specialist (oncologist). Keep all follow-up visits. This is important. Where to find more information [employer] Society: www.cancer.org Greek Society of Clinical Oncology: www.cancer.net National Cancer [place]: www.cancer.gov Contact a health care provider if: [...] provider. Document Revised: 08/31/2021 Document Reviewed: 08/31/2021 [employer] Patient Education 2022 [employer] Follow Up Care 02/03/2022 09:06:37 With:NICOLA RAYMUNDO, Peterson Owens, URL Address: [facility] [address], [place] [address]- [phone] When: Unknown Comments:1 yr w/ PSA [facility] 04-05-2023 Evaluation note* Encounter Date Diagnosis Assessment Notes Treatment Notes Treatment Clinical Notes Sep, Gastroesophageal ref lux disease with esophagitis (ICD-10 - K21.0) [facility] Other 02-06-2023 Procedure [facility]02-02-2023 Evaluation note* Encounter Date Diagnosis Assessment Notes Treatment Notes Treatment Clinical Notes Jul, Diarrhea (ICD-10 - R19.7) Jul, GERD (gastroesophageal reflux disease) (ICD-10 - K21.9) Jul, Hemorrhoids (ICD-10 - K64.9) PATIENT TO START ANUSOL CREAM USE SITZ BATH NEEDED Jul, Dysphagia (ICD-10 - R13.10) [facility] Other 10-28-2022 NotePROCEDURE: XR FOOT RT MIN 3 VIEWS COMPARISON: None. HISTORY: Pain in right foot FINDINGS: BONES:No acute fracture or dislocation. Persistent hammertoe deformities. Moderate hallux valgus. 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 Bulky enthesopathic spurring of the calcaneus SOFT TISSUES:Negative. No visible soft tissue swelling. EFFUSION:None visible. OTHER: Negative. IMPRESSION: Degenerative changes Electronically authenticated by: SORIN SHORE Date: 2022-04-14 18:01[facility]08-19-2022 Hospital Discharge instructions Patient Education 02/03/2022 [...] urethra. Follow these instructions at home: Take blen-qmq-qimpjlk and prescription medicines only as told by [...] 06/04/2006 Document Revised: 04/29/2019 Document Reviewed: 07/09/2017 [employer] Patient Education 2019 [email or web address]. Follow Up Care 08/05/2021 10:59:30 With:NICOLA RAYMUNDO, Peterson Owens, URL Address: [facility] [address], [place] [address]- When:1 year Comments:W/ PSA [facility] [place] 08-17-2021 NoteHNO ID: [id number] Author: Fawad Diaz MD Service: ? Author Type: Physician Type: Progress Notes Filed: 02/03/2021 9:48 AM Note Text: Radiation Oncology - Follow Up Note PATIENT NAME: Milad Seymour PATIENT DIAGNOSIS: DIAGNOSIS: Prostate adenocarcinoma, initial PSA 14.65, biopsy [place] score 3 + 3 = 6 (grade [...] Fawad Diaz MD cc: Dank Campo MD ([facility]) [address] [place] [address] Dr. Petersen Portions of the above note extracted and edited from previous visit as well as active information included in the EMR.[facility] 11-04-2020 NoteHNO ID: [id number] Author: Fawad Diaz MD Service: ? Author [...] ASSESSMENT/PLAN:DIAGNOSIS: Prostate adenocarcinoma, initial PSA 14.65, biopsy [place] score 3 + 3 = 6 (grade [...] MD cc: Dank Campo MD (Dr) [address] [place] [address] Dr. [facility] note Future Appointments Appointment Date:02/12/2023 09:15:00 AM Scheduled Provider:Peterson PETERSEN MD Location:[facility] Appointment Type:URO Office Visit Diagnostic Tests Pending * PSA Total 02/03/22 [facility] evaluation + Plan note Future Appointments Appointment Date:02/12/2023 09:15:00 AM Scheduled Provider:Peterson PETERSEN MD Location:[facility] Appointment Type:URO Office Visit [facility] evaluation + Plan note Future Appointments Appointment Date:02/15/2024 08:15:00 AM Scheduled Provider:Peterson PETERSEN MD Location:[facility] Appointment Type:URO Office Visit Diagnostic Tests Pending * PSA Total 02/12/23 [facility] evaluation + Plan note Future Appointments Appointment Date:02/04/2024 11:30:00 AM Scheduled Provider:Peterson PETERSEN MD Location:[facility] Appointment Type:URO Office Visit [facility] evaluation + Plan note Future Appointments Appointment Date:02/09/2025 08:45:00 AM Scheduled Provider:Peterson PETERSEN MD Location:[facility] Appointment Type:URO Office Visit Diagnostic Tests Pending * PSA Total 02/04/24 [facility] evaluation noteNo assessment information available [facility] Work Phone: evaluation noteNo InformationNort Alfal[employer] Other evaluation note* Diagnosis Class 2 severe obesity due to excess calories with serious comorbidity and body mass index (BMI) of 36.0 to 36.9 in adult ([facility])- Primary Type 2 diabetes mellitus with diabetic polyneuropathy, with long-term current use of insulin ([facility]) [facility] Diagnosis Onset Date Resolution Status H/O rotator cuff surgery acu te [facility] Work Phone: evaluation note* Diagnosis Personal history of tobacco use, presenting hazards to health- Primary Obstructive sleep apnea syndrome Obstructive sleep apnea (adult) (pediatric) CSA (central sleep apnea) Unspecified sleep apnea [facility] Author Kike Bernal [facility] July 24, 2022 1:05pm Note Date/Time July 24, 2022 1 :05pm [facility] [address] [place] [address] Gastroenterology H&P Signed Patient: Milad Seymour MR#: [id number] : 1955 Acct:[id number] Age/Sex: 66 / M Adm Date: 3 Loc: Room: Type: [facility] Attending Dr: Kike Bernal MD Copies to: [...] M.D. Documented By: Kike Bernal MD 07/24/22 1303 Signed By: <Electronically signed by Kike Bernal MD> 07/24/22 1889 [facility] Work Phone: History and physical note Author Kike Bernal [facility] April 27, 2023 11:41am Note Date/Time April 27, 2023 11:41am [facility] [address] [place] [address] Gastroenterology H&P Signed Patient: Milad Seymour MR#: [id number] : 1955 Acct:[id number] Age/Sex: 67 / M Adm Date: 3 Loc: Room: Type: [facility] Attending Dr: Kike Bernal MD Copies to: [...] signed by Kike Bernal MD> 04/27/23 1141 [facility] Work Phone: History general Narrative [...] Hospitalization History none in the last year [facility] Other Hospital course Narrative No data available for this section [facility] Hospital Discharge instructions Additional Instructions DISCHARGE [...] problems. -Follow up with PCP. -Office number [phone]. [facility] Work Phone: Hospital Discharge instructions No data available for this section [facility] Hospital Discharge instructions Additional Instructions DISCHARGE [...] stomach, liquids high in sugar content (soda, Ojno-Aid, non-acid juices) are recommended. - You can resume normal activities tomorrow. FOLLOW UP & RECOMMENDATIONS: -Notify the doctor if you have any problems. -Repeat colonoscopy in 5 years -Follow up pathology -Follow up in the office as scheduled -Office number [phone]. [facility] Work Phone: InstructionsNot on filedocumented in this encounter [facility]ructionsNot on filedocumented in this encounter [facility] No data available for this section [facility] Summary Purpose Family History No Family [...] more parameters with PAP titration Gregoria Ralph, SENIOR INTERNET SALES CONSULTANT-ASSOCIATE [employer] [address], [address] [place] [address] Referral ID Status Reason Start Date Expiration Date V isits Requested Visits Authorized [id number] Pending Review 08/15/2023 08/14/2024 1 1 Specialty Diagnoses / Procedures Referred By Contac t Referred To Contact Diagnoses Obstructive sleep apnea syndrome CSA (central sleep apnea) Procedures Echo complete W/O contrast Gregoria Ralph SENIOR INTERNET SALES CONSULTANT-ASSOCIATE BI[employer] [address], [address] [place] [address] [address] Phone: [phone] Referral ID Status Reason Start Date Expiration Date V isits Requested Visits Authorized [id number] Authorized 08/15/2023 11/12/2023 1 1 Specialty Diagnoses / Procedures Referred By Contac t Referred To Contact Radiology Diagnoses Personal history of tobacco use, presenting hazards to health Procedures CT low dose lung screenin (3mo 6mo follow-up) Gregoria Ralph SENIOR INTERNET SALES CONSULTANT-ASSOCIATE [employer] [address] [address] Phone: [phone] Referral ID Status Reason Start Date Expiration Date V isits Requested Visits Authorized [id number] Authorized 08/16/2023 11/13/2023 1 1 Additional Source Comments (unrecognized sect ion and content) No Status Records FoundNo Status Records FoundNo Status Records FoundNo Status Records FoundNo Status Records FoundNo Status Records FoundNo Status Records FoundNo Status Records FoundNo Status Records Found INFORMATION SOURCE (unrecogn ized section and content) DATE CREATED AUTHOR 08/06/2021 [facility] DATE CREATED AUTHOR AUTHOR'S ORGANIZ ATION 10/24/2022 [facility] DATE CREATED AUTHOR AUTHOR'S ORGANIZ ATION 08/24/2023 [facility] DATE CREATED AUTHOR AUTHOR'S ORGANIZ ATION 11/11/2023 [facility] DATE CREATED AUTHOR AUTHOR'S ORGANIZ ATION 11/20/2023 [facility] DATE CREATED AUTHOR AUTHOR'S ORGANIZ ATION 12/15/2023 [facility] DATE CREATED AUTHOR AUTHOR'S ORGANIZ ATION 02/02/2024 [facility] dical Specialists [facility] DATE CREATED AUTHOR AUTHOR'S ORGANIZ ATION 02/05/2024 [facility] DATE CREATED AUTHOR AUTHOR'S ORGANIZ ATION 02/26/2024 [facility] Team (unrecognized sect ion and content) Team Status: Active Member Role Status Dates Dank Campo MD Primary Care Provider Active Team Status: Inactive Member Role Status Dates aDnk Campo MD Primary Care Provider Active Kike [...] July 17, 2023 End: July 17, 2023 Program/Music Director Relationship Specialty Start Date End Date Dank Campo MD [address] [place] [id number] PCP - General Family Medicine 07/25/23 Program/Music Director Relationship Specialty Start Date End Date Dank Campo MD [address] [place] [address] PCP - General Family Medicine 07/25/23 Program/Music Director Relationship Specialty Start Date End Date Dank Campo MD [address] [facility] [place] [address] PCP - General Family Medicine 12/10/17 Team [...] August 09, 2023 End: August 09, 2023 Program/Music Director Relationship Specialty Start Date End Date Dank Campo MD [address] [place] [address] PCP - General Family Medicine 12/10/17 Program/Music Director Relationship Specialty Start Date End Date Dank Campo MD [address] [place], [place] [id number] PCP - General Family Medicine 12/10/17 REASON FOR VISIT (unrecogniz ed section and content) Reason Comments Diabetes Reason Comments Sleep Apnea DME: [facility] Specialty Diagnoses / Procedures Referred By Contfelipa t Referred To Contact Pulmonary Medicine / Sleep Medicine Diagnoses Obstructive sleep apnea syndrome Jyoti Roth, SENIOR INTERNET SALES CONSULTANT-[facility] [address] [place] [address] [facility] [address] [place] [address] [place] [address] Referral ID Status Reason Start Date Expiration Date Visits Requested Visits Authorized [id number] Pending Review Specialty Services Required 08/13/2023 08/12/2024 [...] BE BASED ON THE PRIMARY CLINICAL RECORDS. [facility] [employer] [facility]. provides no warranty or guarantee of the accuracy or completeness of information in this document.
--- NOTE | 2024-02-28 09:23 | P.CN_ITS ---
Consult Note: HPI Data of Consult Patient: known to practice within the last 3 years Consult date: 10/01/23 Requesting Physician: Sandra Vu NP Primary Care Provider: Dank Bella MD Consult Narrative Reason for consult: low back pain, bilateral lower extremity pain Narrative: 68yom who presents for evaluation. notes worsening pain that radiates from low back to legs, worse with ambulation. underwent physical therapy within past 3 months, which did not provide lasting benefit. imaging shows multilevel degener ative changes, with stenosis at multiple levels, worst at l4-5. denies adverse med side effects. Recently underwent bilateral L4-5 TFESI and bilateral SIJ injection with >50% improvement greater than 3 months. Pain 0/10 increasing to 8/10 with standing, walking, pushing, pulling, raking, yardwork, activity. Currently utilizing celebrex 200mg daily, flexeril 10mg TID PRN, asa, prozac, diazepam. cc:: CC: Sandra Vu NP Review of Systems ROS Status of ROS 10 or more systems reviewed and unremark able except as noted in history and below Musculoskeletal Reports: back pain and extremity pain [facility] Medical History (Updated 02/28/24 @ 09:23 by Sandra Vu NP) Low back pain ?M54.50 - Low back pain, unspecified (ICD-10) Neck pain ?M54.2 - Cervicalgia (ICD-10) Osteoarthritis ?M19.90 - Unspecified osteoarthritis, unspecified site (ICD-10) Anxiety ?F41.9 - Anxiety disorder, unspecified (ICD-10) Heartburn ?R12 - Heartburn (ICD-10) Hiatal hernia ?K44.9 - Diaphragmatic hernia without obstruction or gangrene (ICD-10) Acid reflux ?K21.9 - Gastro-esophageal reflux disease without esophagitis (ICD-10) Prostate cancer ?C61 - Malignant neoplasm of prostate (ICD-10) Enlarged prostate ?N40.0 - Benign prostatic hyperplasia without lower urinary tract symptoms (ICD-10) Diabetes ?E11.9 - Type 2 diabetes mellitus without complications (ICD-10) History of home ventilator ?Z99.11 - Dependence on respirator [ventilator] status (ICD-10) Smoker ?F17.200 - Nicotine dependence, unspecified, uncomplicated (ICD-10) Sleep apnea ?G47.30 - Sleep apnea, unspecified (ICD-10) COPD (chronic obstructive pulmonary disease) ?J44.9 - Chronic obstructive pulmonary disease, unspecified (ICD-10) Heart murmur ?R01.1 - Cardiac murmur, unspecified (ICD-10) Irregular heart beat ?I49.9 - Cardiac arrhythmia, unspecified (ICD-10) High cholesterol ?E78.00 - Pure hypercholesterolemia, unspecified (ICD-10) Hypertension ?I10 - Essential (primary) hypertension (ICD-10) Surgical History S/P foot surgery ?Z98.890 - Other specified postprocedural states (ICD-10) Hx laparoscopic cholecystectomy ?Z90.49 - Acquired absence of other specified parts of digestive tract (ICD- 10) S/P shoulder surgery ?Z98.890 - Other specified postprocedural states (ICD-10) S/P left knee arthroscopy ?Z98.890 - Other specified postprocedural states (ICD-10) History of appendectomy ?Z90.49 - Acquired absence of other specified parts of digestive tract (ICD- 10) Meds Home Medications and Allergies Home Medications ?Medication ?Instructions ?Recorded ?Confirmed ?Type aspirin 81 mg capsule 81 mg PO DAILY 10/02/23 11/05/23 History baclofen 20 mg tablet mg 10/02/23 History celecoxib 200 mg capsule mg 10/02/23 History insulin glargine 100 unit/mL 60 unit subcut DAILY 10/02/23 11/05/23 History subcutaneous solution (Lantus U-100 Insulin) insulin lispro 100 unit/mL subcut 10/02/23 History subcutaneous pen lansoprazole 30 mg capsule,delayed mg 10/02/23 History release lisinopril 10 mg tablet mg 10/02/23 History loperamide 2 mg capsule mg 10/02/23 History magnesium oxide 400 mg (241.3 mg mg 10/02/23 History magnesium) tablet metoprolol succinate 50 mg mg PO 10/02/23 History tablet,extended release 24 hr simvastatin 40 mg tablet mg 10/02/23 History semaglutide 1 mg/dose (4 mg/3 mL) 1 mg subcut QWEEK 11/05/23 11/05/23 History subcutaneous pen injector (Ozempic) Allergies Allergy/AdvReac Type Severity Reaction Status Date / Time No Known Drug Allergies Allergy Verified 11/05/23 07:07 Exam Constitutional Documenting provider has reviewed patient's vital signs: yes Common normals: no apparent distress, oriented x3, healthy appearing, alert and well nourished General appearance: cooperative HENMT Common normals: normocephalic, hearing grossly normal bilaterally and moist oral mucous membranes Head and scalp: normocephalic Eye Common normals: PERRL Pupil: PERRL Neck & C-Spine Common normals: full ROM General: normal visual inspection Chest Common normals: inspection of chest normal Respiratory Common normals: normal respiratory effort, no retractions and no use of accessory muscles Back & Pelvis Lumbar spine/lower back: normal to inspection, lumbar ROM normal and pain with ROM Sacroiliac joints: SI joint(s) abnormal Other: mildly positive left L4,5 L5,S1 facet tenderness and facet loading bilateral positive samara(patricks), gaenslens, thigh thrust, compression test sensation intact BLE, strength 5/5 in BLE increased in heaviness numbness tingling with standing and walking along l4/5 improved with sitting and forward flexion Extremity Common normals: normal to inspection and full ROM Neuro Common normals: oriented x3, CN's II-XII intact bilaterally, moves all extremities, no focal motor deficits, no sensory deficits noted and deep tendon reflexes 2+ bilaterally Sensorium/orientation: alert Motor exam: strength 5/5 throughout and no movement abnormalities noted Psych Common normals: mental status grossly normal, thought process normal, cooperative, affect normal, speech normal and activity/motor behavior normal Speech: normal speech Thought process: normal thought process Results Additional Findings Additional findings: If on a controlled substance or opioids, I have checked an [place] report on this patient and there are no aberrancies noted in the prescribing history.??If on a controlled substance or opioid a drug screen was completed and reviewed within the last year, and if there has not been a drug screen completed we ordered one today to monitor higher risk, state monitored pain medication use. As part of providing excellent, safe, comprehensive care, the following was completed at our patient's visit: 1. A medication reconciliation and review to ensure accurate knowledge of current/active medications, including asking our patients to inform us about any [id number] medications or herbal remedies/nutritional supplements/alternative remedies. 2. A review to specifically ensure our patients have had annual screening for screening for depression, screening for tobacco use, and screening for unhealthy alcohol use. For concerning screenings had a discussion with the patient, provided patient education, and recommended follow-up with primary care provider when appropriate. If patient noted with a risk of falling, they received education on strength, gait, and balance training to prevent future risk of fall ing. Assessment and Plan Assessment and Plan (1) Lumbar stenosis with neurogenic claudication: (2) Sacroiliac joint dysfunction of both sides: (3) Lumbar spondylosis: (4) Painful diabetic neuropathy: (5) Myofascial pain: Plan repeat L4-5 TFESI under fluoroscopy, previous SHAHEEN provided >50% improvement greater than 3 months start gabapentin 300mg BID for lumbar stenosis with NC and painful DPN. briefly discussed spinal cord stimulation, handout provided. increase flexeril 10-20mg TID PRN pain/spasms f/u 2 weeks after SHAHEEN
== END 2024-02-28 08:56 | disposition home or self-care (01) ==
LOC: PM 08:56
PROVIDERS: PCP Family Medicine; Visit Provider Nurse Practitioner
DX: M48.062 Spinal stenosis, lumbar region with neurogenic claudication (principal); M53.3 Sacrococcygeal disorders, not elsewhere classified; M47.816 Spondylosis without myelopathy or radiculopathy, lumbar region; E11.40 Type 2 diabetes mellitus with diabetic neuropathy, unspecified; M79.18 Myalgia, other site
CPT/HCPCS: G0463

== ENCOUNTER 2024-03-10 09:58 | Day surgery (SDC) | payer MEDICARE, SELFPAY ==
[2024-03-10 10:27] VITALS: BP 144/60; PULSE 66; TEMP 36.2; O2SAT 97
[2024-03-10 11:11] VITALS: BP 129/63; PULSE 74; O2SAT 95
[2024-03-10 11:12] VITALS: BP 137/65; PULSE 77; O2SAT 95
--- NOTE | 2024-03-10 11:15 | W.PM.PROCNOT ---
Date of procedure: 03/10/24 Pre-op diagnosis: Pain due to lumbar stenosis with neurogenic claudication Post-op diagnosis: same as pre-op Procedure: Procedure: Bilateral L4-5 transforaminal epidural steroid injection Medications: Bupivacaine 0.25% 2cc, lidocaine 2% 1cc, kenalog 80mg The patient was seen and examined in the preoperative holding area.? Informed consent was obtained and placed on the chart.? Patient was brought to the medical procedure unit and placed in the prone position where a timeout was completed verifying the correct patient, procedure site, position, and planned special equipment using sterile aseptic technique.? Under direct fluoroscopic visualization a 25-gauge Quincke tipped spinal needle was advanced at level left L4-5 to the designated neural foramen where contrast dye was injected to show adequate spread.? There was no evidence of vascular or adverse uptake.? Epidural spread was appreciated.? The above-mentioned injectate was then placed in a 1.5 mL aliquot preceded by negative aspiration.? The needle was removed. The same procedure, at the same level, was completed on the opposite side. ? Patient was taken to the postprocedural recovery area and monitored for an appropriate length of time before found suitable for discharge in the accompaniment of a responsible adult. Anesthesia: Local Surgeon: Roma Lopez Pathology: none sent Condition: stable Disposition: no change
[2024-03-10] MEDS: LIDOCAINE HCL 2% 400 MG/20 ML MDV 2.5 ML INJ (11:17)
[2024-03-10] MEDS: BUPIVACAINE HCL 0.25% PF 25 MG/10 ML VIAL INJ (11:17)
[2024-03-10] MEDS: TRIAMCINOLONE ACETONIDE 40 MG/ML VIAL 80 MG INJ (11:17)
[2024-03-10] MEDS: 0.9 % SODIUM CHLORIDE 10 ML SYRINGE - SALINE FLUSH INJ (11:17)
[2024-03-10] MEDS: IOHEXOL 240 MG/ML - 10 ML VIAL 24 MG INJ (11:17)
== END 2024-03-10 11:18 | disposition home or self-care (01) ==
LOC: SURGOUT 09:59
PROVIDERS: PCP Family Medicine; Visit Provider Anesthesiology
DX: M48.062 Spinal stenosis, lumbar region with neurogenic claudication (principal)
CPT/HCPCS: 64483; J0665; J3301; Q9966

== ENCOUNTER 2024-03-19 08:54 | Outpatient (OUT) | payer MEDICARE, SELFPAY ==
--- NOTE | 2024-03-19 09:08 | P.CN_ITS ---
Consult Note: HPI Data of Consult Patient: known to practice within the last 3 years Consult date: 10/01/23 Requesting Physician: Sandra Vu NP Primary Care Provider: Dank Bella MD Consult Narrative Reason for consult: low back pain, bilateral lower extremity pain Narrative: 68yom who presents for evaluation. notes worsening pain that radiates from low back to legs, worse with ambulation. underwent physical therapy within past 3 months, which did not provide lasting benefit. imaging shows multilevel degener ative changes, with stenosis at multiple levels, worst at l4-5. denies adverse med side effects. Previously patient reported pain 0/10 increasing to 8/10 with standing, walking, pushing, pulling, raking, yardwork, activity. Currently utilizing celebrex 200mg daily, flexeril 10mg TID PRN, asa, prozac, diazepam. Since last visit pt underwent bilateral L4/5 TFESI with 100% improvement ongoing, since starting gabapentin 300mg BID patient has had complete resolution of painful diabetic neuropathy. Patient thrilled with his pain relief. Patient has an upcoming shoulder surgery, rotator cuff repair, next sunday. Patient has chronic left knee pain secondary to OA unresponsive to topical NSAIDs, oral nsaids and tylenol, heat/ice, and steroid injections. cc:: CC: Sandra Vu NP Review of Systems ROS Status of ROS 10 or more systems reviewed and unremark able except as noted in history and below Musculoskeletal Reports: joint pain [facility] Medical History (Updated 02/28/24 @ 09:23 by Sandra Vu NP) Low back pain ?M54.50 - Low back pain, unspecified (ICD-10) Neck pain ?M54.2 - Cervicalgia (ICD-10) Osteoarthritis ?M19.90 - Unspecified osteoarthritis, unspecified site (ICD-10) Anxiety ?F41.9 - Anxiety disorder, unspecified (ICD-10) Heartburn ?R12 - Heartburn (ICD-10) Hiatal hernia ?K44.9 - Diaphragmatic hernia without obstruction or gangrene (ICD-10) Acid reflux ?K21.9 - Gastro-esophageal reflux disease without esophagitis (ICD-10) Prostate cancer ?C61 - Malignant neoplasm of prostate (ICD-10) Enlarged prostate ?N40.0 - Benign prostatic hyperplasia without lower urinary tract symptoms (ICD-10) Diabetes ?E11.9 - Type 2 diabetes mellitus without complications (ICD-10) History of home ventilator ?Z99.11 - Dependence on respirator [ventilator] status (ICD-10) Smoker ?F17.200 - Nicotine dependence, unspecified, uncomplicated (ICD-10) Sleep apnea ?G47.30 - Sleep apnea, unspecified (ICD-10) COPD (chronic obstructive pulmonary disease) ?J44.9 - Chronic obstructive pulmonary disease, unspecified (ICD-10) Heart murmur ?R01.1 - Cardiac murmur, unspecified (ICD-10) Irregular heart beat ?I49.9 - Cardiac arrhythmia, unspecified (ICD-10) High cholesterol ?E78.00 - Pure hypercholesterolemia, unspecified (ICD-10) Hypertension ?I10 - Essential (primary) hypertension (ICD-10) Surgical History S/P foot surgery ?Z98.890 - Other specified postprocedural states (ICD-10) Hx laparoscopic cholecystectomy ?Z90.49 - Acquired absence of other specified parts of digestive tract (ICD- 10) S/P shoulder surgery ?Z98.890 - Other specified postprocedural states (ICD-10) S/P left knee arthroscopy ?Z98.890 - Other specified postprocedural states (ICD-10) History of appendectomy ?Z90.49 - Acquired absence of other specified parts of digestive tract (ICD- 10) Meds Home Medications and Allergies Home Medications ?Medication ?Instructions ?Recorded ?Confirmed ?Type aspirin 81 mg capsule 81 mg PO DAILY 10/02/23 03/10/24 History celecoxib 200 mg capsule mg 10/02/23 History insulin glargine 100 unit/mL 60 unit subcut DAILY 10/02/23 03/10/24 History subcutaneous solution (Lantus U-100 Insulin) insulin lispro 100 unit/mL subcut 10/02/23 History subcutaneous pen lansoprazole 30 mg capsule,delayed mg 10/02/23 History release lisinopril 10 mg tablet mg 10/02/23 History loperamide 2 mg capsule mg 10/02/23 History magnesium oxide 400 mg (241.3 mg mg 10/02/23 History magnesium) tablet metoprolol succinate 50 mg mg PO 10/02/23 History tablet,extended release 24 hr simvastatin 40 mg tablet mg 10/02/23 History semaglutide 1 mg/dose (4 mg/3 mL) 1 mg subcut QWEEK 11/05/23 03/10/24 History subcutaneous pen injector (Ozempic) gabapentin 300 mg capsule 300 mg PO BID #60 caps 02/28/24 03/10/24 Rx cyclobenzaprine 10 mg tablet mg 03/10/24 History Allergies Allergy/AdvReac Type Severity Reaction Status Date / Time No Known Drug Allergies Allergy Verified 03/10/24 10:36 Exam Constitutional Documenting provider has reviewed patient's vital signs: yes Common normals: no apparent distress, oriented x3, healthy appearing, alert and well nourished General appearance: cooperative HENMT Common normals: normocephalic, hearing grossly normal bilaterally and moist oral mucous membranes Head and scalp: normocephalic Eye Common normals: PERRL Pupil: PERRL Neck & C-Spine Common normals: full ROM General: normal visual inspection Chest Common normals: inspection of chest normal Respiratory Common normals: normal respiratory effort, no retractions and no use of accessory muscles Back & Pelvis Lumbar spine/lower back: normal to inspection, lumbar ROM normal and straight leg raise negative bilaterally; no pain with ROM Sacroiliac joints: SI joints normal Other: mildly positive left L4,5 L5,S1 facet tenderness and facet loading sensation intact BLE, strength 5/5 in BLE Extremity Common normals: normal to inspection and full ROM Left lower extremity: knee joint Other: mild edema, moderate crepitus, no instability noted, increased pain with medial and lateral stress testing Neuro Common normals: oriented x3, CN's II-XII intact bilaterally, moves all extremities, no focal motor deficits, no sensory deficits noted and deep tendon reflexes 2+ bilaterally Sensorium/orientation: alert Motor exam: strength 5/5 throughout and no movement abnormalities noted Psych Common normals: mental status grossly normal, thought process normal, cooperative, affect normal, speech normal and activity/motor behavior normal Speech: normal speech Thought process: normal thought process Results Additional Findings Additional findings: If on a controlled substance or opioids, I have checked an [place] report on this patient and there are no aberrancies noted in the prescribing history.??If on a controlled substance or opioid a drug screen was completed and reviewed within the last year, and if there has not been a drug screen completed we ordered one today to monitor higher risk, state monitored pain medication use. As part of providing excellent, safe, comprehensive care, the following was completed at our patient's visit: 1. A medication reconciliation and review to ensure accurate knowledge of current/active medications, including asking our patients to inform us about any [id number] medications or herbal remedies/nutritional supplements/altern ative remedies. 2. A review to specifically ensure our patients have had annual screening for screening for depression, screening for tobacco use, and screening for unhealthy alcohol use. For concerning screenings had a discussion with the patient, provided patient education, and recommended follow-up with primary care provider when appropriate. If patient noted with a risk of falling, they received education on strength, gait, and balance training to prevent future risk of falling. Assessment and Plan Assessment and Plan (1) Lumbar stenosis with neurogenic claudication: (2) Sacroiliac joint dysfunction of both sides: (3) Lumbar spondylosis: (4) Painful diabetic neuropathy: (5) Myofascial pain: Plan repeat L4-5 TFESI providing >90% improvement ongoing continue gabapentin 300mg BID for lumbar stenosis with NC and painful DPN. continue flexeril 10-20mg TID PRN pain/spasms f/u 3 months, sooner if needed
== END 2024-03-19 08:55 | disposition home or self-care (01) ==
LOC: PM 08:54
PROVIDERS: PCP Family Medicine; Visit Provider Nurse Practitioner
DX: M48.062 Spinal stenosis, lumbar region with neurogenic claudication (principal); M47.816 Spondylosis without myelopathy or radiculopathy, lumbar region; E11.40 Type 2 diabetes mellitus with diabetic neuropathy, unspecified; M79.18 Myalgia, other site; M53.3 Sacrococcygeal disorders, not elsewhere classified
CPT/HCPCS: G0463

== ENCOUNTER 2024-04-09 11:26 | Outpatient (OUT) | payer MEDICARE, SELFPAY ==
--- OUTSIDE RECORDS SUMMARY | 2024-04-09 11:33 | XMS_ITS | CCD ---
Author Organization [facility] Care Team Providers Care Labor Relations Specialist Name Role Phone DANK CAMPO Primary Care Physician [phone] MD Dank Campo Primary Care Provider MD Kike Bernal Attending Provider Asaad, Imad Unavailable FERNANDO ., MR REBECCA Admitting Unavailable NADEREGraciela, DR DANK Leon Primary Care Unavailable DIAS ., MR REBECCA Attending Unavailable DIAS ., MR REBECCA Consulting Unavailable PETERSEN ., DR WINKLER Consulting Unavailable PETERSEN ., DR WINKLER Admitting Unavailable NADERER, DR DANK Leon Primary Care Unavailable PETERSEN ., DR WINKLER Attending Unavailable NADERER, DR DANK Leon Primary Care Unavailable ASAAD, IMAD Admitting Unavailable ASAAD, IMAD Attending Unavailable ASAAD, IMAD Consulting Unavailable NADERER, DR ADNK Leon Primary Care Unavailable NADERER, DR DANK [...] NADERER, DR DANK Leon Primary Care Unavailable RAMSEY, DR SORIN Rodarte Consulting Unavailable NADERER, DR DANK Leon Admitting Unavailable NADERER, DR DANK Leon Attending Unavailable NADEREGraciela, DR DANK Leon Primary Care Unavailable ALBER, DR DANK Leon Consulting Unavailable MD Dank Campo Primary Care Provider MD Kike Bernal Attending Provider MD Dank Campo Attending Provider MD Dank Campo Attending Provider Dank Campo MD Primary Care Provider [phone] Dank Campo MD Primary Care Provider MD Dank Campo Primary Care Provider KERRI Holden Attending Provider MD Dank Campo Referring Provider [phone] Dank Campo Primary Care Unavailable Dank Campo Attending Unavailable FelixereDank owens Admitting Unavailable Asaad, Imad Attending Unavailable Alber, Dank Primary Care Unavailable Asaad, Imad Admitting Unavailable Edd Holden Admitting Unavailable Edd Holden Attending Unavailable FelixereDank owens Primary Care Unavailable Naderegraciela, Dank Primary Care Unavailable Asaad, Imad Admitting Unavailable Asaad, Imad Attending Unavailable Dank Campo Attending Unavailable Naderegraciela, Dank Admitting Unavailable Naderer, Dank Primary Care Unavailable Felixeregraciela, Dank Attending Unavailable Dank Campo Referring Unavailable Felixeregraciela, Dank Admitting Unavailable Naderer, Dank Primary Care Unavailable Naderer, Dank Primary Care Unavailable Jyoti Roth Admitting Unavailable Jyoti Roth Attending Unavailable GREGORIA RALPH Referring Unavailable DANK CAMPO Primary Care Unavailable Peterson PETERSEN Attending Unavailable ROSALVA MURO Attending Unavailable ROSALVA MURO Admitting Unavailable Peterson PETERSEN Attending Unavailable DEJUAN PETERSEN Attending Unavailable Peterson PETERSEN Attending Unavailable Peterson PETERSEN Attending Unavailable GREGORIA RALPH Attending Unavailable DANK CAMPO Referring Unavailable ALBER, DANK Primary Care Unavailable HANNA BUTCHER Attending Unavailable DANK CAMPO Referring Unavailable FELIXERER, DANK Primary Care Unavailable Jessica RAYMUNDO, Piedadrius Arteaga Attending Unavailable Jessica RAYMUNDO, Andrius Arteaga Attending Unavailable Jessica RAYMUNDO, Andrius Vytkatiuska Attending Unavailable Jessica RAYMUNDO, Andrius Arteaga Attending Unavailable Dank Campo MD Primary Care Provider [phone] Dank Campo MD Primary Care Provider [phone] DEXTER KRISHNAMURTHY Attending Unavailable CODY, ASHLI Scott Attending Unavailable CODY, ASHLI Scott Attending Unavailable JR. JOON, JOHANNE Vidales Attending Unavaila ble LAST, DEXTER Leon Attending Unavailable ALBER, DANK Referring Unavailable NADERER, DANK Attending Unavailable RUS, DEXTER Leon Attending Unavailable HOLDEN, EDD Salinas Attending Unavailable RUSHER, DEXTER Leon Attending Unavailable RUSHER, DEXTER Leon Attending Unavailable ROTHJYOTI Attending Unavailable NADERER, DANK Attending Unavailable RUSHER, DEXTER Leon Attending Unavailable PETZNMALLORY, ASHLI Scott Attending Unavailable ADINA, EDD Salinas Attending Unavailable EDD HOLDEN Referring Unavailable NADERER, DANK Attending Unavailable RUS, DEXTER Leon Attending Unavailable NADERER, DANK Attending Unavailable RUS, DEXTER Leon Attending Unavailable NADEREGraciela, DANK Attending Unavailable CODY, ASHLI Scott Attending Unavailable JR. JOON, JOHANNE Vidales Attending Unavailsrikanth HDEZ JR., JOHANNE Vidales Referring Unavaila REBECCA Crandall Attending Unavailable GREGORIA RALPH Referring Unavailable DANK CAMPO Primary Care Unavailable GREGORIA RALPH Referring Unavailable DANK CAMPO Primary Care Unavailable HANNA BUTCHER Attending Unavailable HANNA BUTCHER Referring Unavailable DANK CAMPO Primary Care Unavailable REBECCA DIAS Referring Unavailable DANK CAMPO Primary Care Unavailable Allergies Allergy Classification Reported Allergen(s) Allergy Type Date of Onset Reaction(s) Facility (1 source) No Known Medication Allergies; 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: [No Known Medication Allergies] Propensity to adverse reactions (disorder) [facility] Repository Medications Current Medications Medication Drug Class(es) Dates Sig (Normalized) Sig (Original) aspirin 81 mg delayed release oral tablet (20 sources) Platelet Aggregation Inhibitor, Nonsteroidal Anti-inflammatory Drug Start: 01-30-2019 take 1 tablet by mouth once daily Aspirin (Aspir-81) 81 mg Tablet,Delayed Release (Dr/Ec) Active 81 MG PO Daily January 30, 2019 12:00am ASPIRIN 81 MG ch ewable tablet Chew 81 mg Daily Active Baclofen (20 sources) gamma-Aminobutyric Acid-ergic Agonist Start: 03-31-2019 baclofen Oral, TID, Refills(s) 0 Start Date: 03/31/19 Status: Ordered Start: 01-30-2019 End: 06-25-2024 take 20 mg by mouth three times daily Baclofen Discontinued 20 MG PO Three times daily January 30, 2019 12:00am March 17, 2024 10:20am celecoxib 200 mg oral capsule (20 sources) Nonsteroidal Anti-inflammatory Drug Start: 03-31-2019 celecoxib Oral, Refills(s) 0 Start Date: 03/31/19 Status: Ordered Start: 01-30-2019 take 1 capsule by [facility] twice daily celecoxib (CeleBREX) 200 MG capsule Indications: Lumbago with sciatica, right side TAKE 1 CAPSULE BY MOUTH TWICE DAILY 60 capsule 5 01/07/2024 Active Continuous Blood Gluc Sensor (Dexcom G7 Sensor) misc (13 sources) Start: 06-05-2023 End: 06-04-2024 Continuous Blood Gluc Sensor (Dexcom G7 Sensor) misc Indications: Type 2 diabetes mellitus with diabetic polyneuropathy, with long-term current use of insulin ([facility]) Inject 1 Device under the skin See administration instructions Change every 10 days 9 each 3 06/05/2023 06/04/2024 Active Continuous Blood Gluc Sensor (FreeStyle Cornelius 2 Sensor) misc (2 sources) Start: 05-23-2023 End: 07-30-2023 Continuous Blood Gluc Sensor (FreeStyle Cornelius 2 Sensor) misc Indications: Type 2 diabetes mellitus with diabetic polyneuropathy, with long-term current use of insulin ([facility]) Use as directed 2 each 11 05/23/2023 07/30/2023 Discontinued (Therapy completed) cyclobenzaprine hydrochloride 10 mg oral tablet (10 sources) Muscle Relaxant Start: 01-19-2024 take 1 tablet by mouth in the morning, then take 1 tablet by mouth in the evening, then take 1 tablet by mouth at bedtime cyclobenzaprine (Flexeril) 10 MG tablet Take 10 mg by mouth in the morning and 10 mg in the evening and 10 mg before bedtime. 01/19/2024 Active diazePAM 5 mg oral tablet (13 sources) Benzodiazepine Start: 11-14-2023 End: 04-08-2024 take 1 tablet by mouth three times daily as needed for anxiety diazePAM (Valium) 5 MG tablet Indications: JARAD (generalized anxiety disorder) (CMS/HCC) Take 1 tablet (5 mg) by mouth 3 (three) times a day as needed for anxiety for up to 20 days 60 tablet 11/14/2023 04/08/2024 Discontinued Start: 06-21-2023 diazePAM (Niranjan um) 5 MG tablet Indications: Anxiety Take 1 tablet (5 mg) by mouth 1 (one) time for 1 dose Take 30 minutes prior to MRI. 2 tablet 0 06/21/2023 Active fluorometholone 1 mg/ml ophthalmic suspension (13 sources) Corticosteroid Start: 12-28-2022 take 1 drop(s) into the eye(s) four times daily, then take 1 drop(s) into the eye(s) twice daily fluorometholone (FML) 0.1 % ophthalmic suspension instill 1 (ONE) DROP IN BOTH EYES FOUR TIMES DAILY FOR 7 DAYS then instill 1 (ONE) DROP IN BOTH EYES TWICE DAILY FOR 7 DAYS 12/28/2022 Active FLUoxetine 20 mg oral capsule (13 sources) Serotonin Reuptake Inhibitor Start: 10-30-2023 take 1 capsule by mouth once daily FLUoxetine (PROzac) 20 MG capsule Indications: JARAD (generalized anxiety disorder) ([facility]) TAKE 1 CAPSULE BY MOUTH DAILY 30 capsule 2 01/07/2024 Active fluticasone 0.05 mg/inh Nasal [place] (5 sources) Start: 07-28-2019 fluticasone 0.05 mg/inh Nasal [place] Nasal, Daily, Refill(s) 0 Start Date: 07/28/19 Status: Ordered gabapentin 100 mg oral capsule (2 sources) Anti-epileptic Agent gabapentin (Neurontin) 100 MG capsule Take by mouth Active 3 ml insulin glargine 100 unt/ml pen injector (20 sources) Insulin Analog Start: 08-09-2023 End: 08-08-2024 insulin glargine (Lantus SoloStar) 100 UNIT/ML pen Indications: Type 2 diabetes mellitus with diabetic polyneuropathy, with long-term current use of insulin ([facility]) Inject 60 Units under the skin at bedtime 60 mL 3 08/09/2023 08/08/2024 Active Start: 04-27-2023 Insulin Glargi ne (Lantus Solostar U-100 Insulin) 100 unit/mL (3 mL) Insulin Pen Active 60 UNIT SUBCUT Every evening April 27, 2023 1:00am Start: 01-16-2023 End: 07-30-2023 Lantus SoloStar 100 UNIT/ML pen Indications: Type 2 diabetes mellitus with diabetic polyneuropathy, with long-term current use of insulin ([facility]) Inject 60 Units under the skin at bedtime 30 mL 3 07/30/2023 Active 3 ml insulin lispro 100 unt/ml pen injector (20 sources) Insulin Analog Start: 03-17-2024 insulin lispro (HumaLOG) 100 UNIT/ML injection Indications: Type 2 diabetes mellitus with diabetic polyneuropathy, with long-term current use of insulin (CMS/HCC) INJECT 5-10 UNITS BREAKFAST, 30 UNITS LUNCH/ DINNER PLUS CORRECTIONS OF 1:30 > 150MG/DL ( MAX 100 UNITS A DAY) 90 mL 3 03/17/2024 Active Start: 06-05-2023 insulin lispro (HumaLOG) 100 UNIT/ML injection Indications: Type 2 diabetes mellitus with diabetic polyneuropathy, with long-term current use of insulin (CMS/[facility]) INJECT 8-15 UNITS BREAKFAST, 20 UNITS LUNCH AND 30 UNITS DINNER PLUS CORRECTIONS OF 1:30 > 150MG/DL ( MAX 100 UNITS A DAY) 90 mL 3 06/05/2023 Active Start: 04-27-2023 inject 1 dose by sub cutaneous injection once before mealtime Insulin Lispro Active 1 sliding scale dose SUBCUT 3x/Day before meals April 27, 2023 1:00am Start: 04-27-2023 inject 1 dose by sub cutaneous injection once before mealtime Insulin Lispro Active 1 sliding scale dose SUBCUT 3x/Day before meals April 27, 2023 12:00am Start: 02-12-2023 Insulin Lispro KwikPen 100 units/mL injectable solution Refills(s) 0 Start Date: 02/12/23 Status: Ordered insulin lispro ( HumaLOG) 100 unit/mL insulin pen Inject under the skin. Active HumaLOG Active Insulin Lispro KwikPen 100 units/mL injectable solution (1 source) Start: 02-12-2023 Insulin Lispro KwikPen 100 units/mL injectable solution Refills(s) 0 Start Date: 02/12/23 Status: Ordered ketoconazole 20 mg/ml topical cream (2 sources) Azole Antifungal Start: 08-09-2023 Ketoconazole Active 1 APPLIC TOPICAL Twice daily August 09, 2023 1:00am lansoprazole 30 mg delayed release oral capsule (20 sources) Proton Pump Inhibitor Start: 03-31-2019 lansoprazole Oral, Daily, Refills(s) 0 Start Date: 03/31/19 Status: Ordered Start: 01-30-2019 End: 03-17-2024 take 30 mg by mouth twice daily Lansoprazole Active 30 MG PO Twice daily 60 30 March 17, 2024 10:37am Start: 01-30-2019 take 30 mg by mouth once daily Lansoprazole Active 30 MG PO Daily January 29, 2019 11:00pm lisinopril 10 mg oral tablet (20 sources) Angiotensin Converting Enzyme Inhibitor Start: 12-18-2023 take 1 tablet by mouth twice daily lisinopril 10 MG tablet Indications: Essential (primary) hypertension (CMS/HCC) TAKE 1 TABLET BY MOUTH TWICE DAILY 60 tablet 5 12/18/2023 Active Start: 06-20-2023 take 1 tablet by maciej th twice daily lisinopril 10 MG tablet Indications: Essential (primary) hypertension (CMS/HCC) TAKE 1 TABLET BY MOUTH TWICE DAILY 60 tablet 5 06/20/2023 Active Start: 03-31-2019 lisinopril Ora l, Daily, Refills(s) 0 Start Date: 03/31/19 Status: Ordered Start: 01-30-2019 take 10 mg by mouth once daily Lisinopril Active 10 MG PO Daily January 30, 2019 12:00am take 1 tablet by maciej th in the morning, then take 1 tablet by mouth at bedtime lisinopriL (PRINIVIL,ZESTRIL) 5 mg tablet Take 1 tablet (5 mg total) by mouth in the morning and 1 tablet (5 mg total) before bedtime. Active take 1 tablet by maciej th every twelve hours Lisinopril 10 MG 1 tablet Orally BID for 30 day(s) Active loperamide hydrochloride 2 mg oral capsule (13 sources) Opioid Agonist Start: 04-27-2023 loperamide 2 m g Cap 2 mg = 1 cap(s), Oral Start Date: 02/04/24 Status: Ordered Start: 04-27-2023 End: 07-30-2023 take 2 mg by mouth every two hours Loperamide Active 2 MG PO Q2H April 27, 2023 12:00am Start: 12-10-2019 take 1 capsule by mo uth twice daily Loperamide HCl 2 MG 1 CAPSULE Orally twice daily for 30 days Nov, Active magnesium oxide 400 mg oral tablet (19 sources) Start: 08-09-2023 take 1 tablet by mouth once daily magnesium oxide (Mag-Ox) 400 (240 Mg) MG tablet Indications: Hypomagnesemia TAKE 1 TABLET BY MOUTH DAILY 30 tablet 5 12/18/2023 Active Start: 06-20-2023 take 1 tablet by maciej th once daily magnesium oxide (Mag-Ox) 400 (240 Mg) MG tablet Indications: Hypomagnesemia TAKE 1 TABLET BY MOUTH DAILY 30 tablet 5 06/20/2023 Active metFORMIN (16 sources) Biguanide Start: 03-31-2019 metformin Oral , Refills(s) 0 Start Date: 03/31/19 Status: Ordered Start: 01-30-2019 End: 08-15-2023 take 850 mg by mouth three times daily Metformin Discontinued 850 MG PO Three times daily January 30, 2019 12:00am April 27, 2023 11:34am methocarbamol 750 mg oral tablet (2 sources) [...] Discontinued (Therapy completed) 24 hr metoprolol succinate 50 mg extended release oral tablet (20 sources) beta-Adrenergic Nirav Start: 02-19-2024 take 1 tablet by mouth once daily metoprolol succinate XL (Toprol-XL) 50 MG 24 hr tablet Indications: Ventricular premature depolarization TAKE 1 TABLET BY MOUTH DAILY 30 tablet 5 02/19/2024 Active Start: 03-31-2019 take 1 mg by mouth once daily metoprolol 25 mg ER Tab mg tab(s), Oral, Daily, Refills(s) 0 Start Date: 03/31/19 Status: Ordered Start: 01-30-2019 take 50 mg by mouth once daily Metoprolol Succinate Active 50 MG PO Daily January 30, 2019 12:00am take 1 tablet by maciej th every twenty-four hours in the morning metoprolol succinate XL (TOPROL-XL) 50 mg 24 hr tablet Take 1 tablet (50 mg total) by mouth in the morning. Active take 1 tablet by th once daily metoprolol succinate XL (TOPROL-XL) [...] PO Daily July 24, 2022 12:00am Semaglutide (2 sources) Start: 08-09-2023 Semaglutide (O zempic) 0.25 mg or 0.5 mg (2 mg/3 mL) pen injector Active 1 MG SUBCUT every week August 09, 2023 1:00am takes on Sunday Start: 08-09-2023 Semaglutide (O zempic) 0.25 mg or 0.5 mg (2 mg/3 mL) pen injector Active 0.25 MG SUBCUT every week August 09, 2023 12:00am takes on Sunday semaglutide (Ozempic, 1 MG/DOSE,) 4 MG/3ML solution pen-injector (9 sources) Start: 10-30-2023 End: 10-29-2024 inject 1 mg by subcutaneous injection every week semaglutide (Ozempic, 1 MG/DOSE,) 4 MG/3ML solution pen-injector Indications: Type 2 diabetes mellitus with diabetic polyneuropathy, with long-term current use of insulin ([facility]) Inject 1 mg under the skin 1 (one) time per week 9 mL 3 10/30/2023 10/29/2024 Active Semaglutide,0.25 or 0.5MG/DOS, (Ozempic, 0.25 or 0.5 MG/DOSE,) 2 MG/3ML solution pen-injector (4 sources) Start: 07-30-2023 Semaglutide,0.25 or 0.5MG/DOS, (Ozempic, 0.25 or 0.5 MG/DOSE,) 2 MG/3ML solution pen-injector Indications: Type 2 diabetes mellitus with diabetic polyneuropathy, with long-term current use of insulin ([facility]) Inject 0.5 mg under the skin 1 (one) time per week 9 mL 3 07/30/2023 Active simvastatin 40 mg oral tablet (20 sources) HMG-CoA Reductase Inhibitor Start: 03-31-2019 simvastatin Oral, Refills(s) 0 Start Date: 03/31/19 Status: Ordered Start: 01-30-2019 take 1 tablet by maciej th at bedtime simvastatin (Zocor) 40 MG tablet Indications: Hyperlipidemia, unspecified ([facility]) Take 1 tablet (40 mg) by mouth at bedtime 30 tablet 5 12/27/2023 Active spironolactone 50 mg oral tablet (13 sources) Aldosterone Antagonist Start: 12-18-2023 take 1 tablet by mouth once daily spironolactone (Aldactone) 50 MG tablet Indications: Localized edema TAKE 1 TABLET BY MOUTH DAILY 30 tablet 5 12/18/2023 Active Start: 04-27-2023 End: 10-30-2023 take 50 mg by mouth once daily Spironolactone Discontinued 50 MG PO Daily April 27, 2023 1:00am October 30, 2023 1:56pm 1 ml tildrakizumab-asmn 100 mg/ml prefilled syringe (2 sources) Interleukin-23 Antagonist Start: 10-05-2023 inject 1 mg by subcutaneous injection every three months Ilumya 100 mg/mL subcutaneous solution mg, SubCutaneous, q3mo, Refills(s) 0 Start Date: 10/05/23 Status: Ordered Completed/Discontinued Medications Medication Drug Class(es) Dates Sig (Normalized) Sig (Original) [id number] 200 actuat albuterol 0.09 mg/actuat metered dose inhaler (2 sources) beta2-Adrenergic Agonist Start: 12-22-2020 End: 08-15-2023 take 2 puff(s) by inhalation every four hours as needed for wheezing albuterol (PROVENTIL HFA;VENTOLIN HFA) 90 mcg/actuation inhaler Indications: Chronic obstructive pulmonary disease, unspecified COPD type ([facility]) Inhale 2 puffs every 4 (four) hours as needed for wheezing. 18 g 11 12/22/2020 08/15/2023 Discontinued (Discontinued by another clinician) clindamycin 300 mg oral capsule (5 sources) Lincosamide Antibacterial Start: 01-28-2021 take 2 capsules by mouth every twelve hours Clindamycin HCl 300 MG 2 capsules Orally bid for 10 day(s) Jan, Not-Taking dibucaine 0.01 mg/mg rectal ointment (6 sources) Standardized Chemical Allergen Start: 12-08-2020 End: 03-14-2021 Dibucaine Discontinued 1 APPLIC OR Four times daily 56 December 08, 2020 12:00am March 14, 2021 12:08pm dicyclomine hydrochloride 20 mg oral tablet (6 sources) Anticholinergic Start: 02-11-2020 End: 12-08-2020 take 20 mg by mouth three times daily Dicyclomine Discontinued 20 MG PO Three times daily February 11, 2020 12:00am December 08, 2020 9:09am docusate sodium 100 mg oral capsule (6 sources) Start: 12-08-2020 End: 03-14-2021 take 1 capsule by mouth once daily Docusate Sodium (Sof-Lax) 100 mg capsule Discontinued 100 MG PO Daily 60 December 08, 2020 10:33am March 14, 2021 12:08pm fluticasone propionate 0.05 mg/actuat metered dose nasal spray (16 sources) Corticosteroid Start: 02-11-2020 End: 07-24-2022 Fluticasone Propionate (Flonase Allergy Relief) 50 mcg/actuation [place],Suspension Discontinued 1 SPRAY INTRANASAL Daily February 11, 2020 12:00am July 24, 2022 1:24pm Start: 07-28-2019 fluticasone 0. 05 mg/inh Nasal [place] Nasal, Daily, Refill(s) 0 Start Date: 07/28/19 Status: Ordered Start: 06-30-2019 take 2 spray(s) nasa l route once daily fluticasone propionate (FLONASE) 50 mcg/actuation nasal spray Administer 2 sprays into each nostril daily. 15.8 mL 12 06/30/2019 Active take 1 spray(s) nasa l route once daily Flonase 50 MCG/ACT 1 spray in each nostril Nasally Once a day Not-Taking furosemide 40 mg oral tablet (10 sources) Loop Diuretic Start: 12-18-2022 End: 10-30-2023 take 40 mg by mouth once daily Furosemide Discontinued 40 MG PO Daily April 27, 2023 1:00am October 30, 2023 1:48pm Furosemide Activ e glipiZIDE 10 mg oral tablet (6 sources) Sulfonylurea Start: 01-30-2019 End: 08-18-2020 take 10 mg by mouth once daily Glipizide Discontinued 10 MG PO Daily January 30, 2019 12:00am August 18, 2020 12:28pm loratadine 10 mg oral tablet (6 sources) Start: 12-08-2020 End: 03-14-2021 take 1 tablet by mouth once daily Loratadine (Claritin) 10 mg Tablet Discontinued 10 MG PO Daily December 08, 2020 12:00am March 14, 2021 12:08pm Magnesium (6 sources) Start: 01-30-2019 End: 08-09-2023 take 400 mg by mouth once daily Magnesium Discontinued 400 MG PO Daily January 30, 2019 12:00am August 09, 2023 12:10pm Start: 01-30-2019 End: 08-09-2023 take 400 mg [...] day(s) Not-Taking oxaprozin 600 mg oral tablet (5 sources) Nonsteroidal Anti-inflammatory Drug Start: 04-27-20 End: 08-09-19 take 600 mg by mouth four times daily Oxaprozin Discontinued 600 MG PO Four times daily April 27, 2023 1:00am August 09, 2023 12:01pm pantoprazole 40 mg delayed release oral tablet [...] Active pyridostigmine bromide 60 mg oral tablet (6 sources) Start: 01-30-2019 End: 08-18-2020 take 60 mg by mouth three times daily Pyridostigmine [place] Discontinued 60 MG PO Three times daily January 30, 2019 12:00am August 18, 2020 12:30pm Semaglutide (Rybelsus) 14 mg tablet (2 sources) Start: 07-24-2022 End: 08-09-2023 take 1 tablet by mouth once daily Semaglutide (Rybelsus) 14 mg tablet Discontinued 14 MG PO Daily July 24, 2022 1:00am August 09, 2023 12:01pm Start: 07-24-2022 End: 08-09-2023 take 1 tablet by mouth once daily Semaglutide (Rybelsus) 14 mg tablet Discontinued 14 MG PO Daily July 24, 2022 12:00am August 09, 2023 11:01am sucralfate 1000 mg oral tablet (6 sources) Aluminum Complex Start: 02-11-2020 End: 03-14-2021 take 1 g by mouth before mealtime Sucralfate Discontinued 1 GM PO before meals February 11, 2020 12:00am March 14, 2021 12:09pm tamsulosin hydrochloride 0.4 mg oral capsule (8 sources) alpha-Adrenergi c Nirav Start: 01-30-2019 End: 03-14-2021 take 0.4 mg by mouth once daily Tamsulosin Discontinued 0.4 MG PO Daily January 30, 2019 12:00am March 14, 2021 12:09pm End: 08-15-2023 take 1 capsule by mouth twice daily tamsulosin (FLOMAX) 0.4 mg capsule Take 0.4 mg by mouth 2 (two) times a day. 0 08/15/2023 Discontinued (Discontinued by another clinician) Problems Active Problems Problem Classification Problem Date Documented Da te Episodic/Chronic Acute and unspecified renal failure (19 sources) Renal failure syndrome; 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: [Unspecified kidney failure] Onset: 9 12-04-2022 Chronic Anxiety disorders (9 sources) Generalized anxiety disorder; 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: [Generalized anxiety disorder] Onset: 4 10-11-2023 Chronic Biliary tract disease (6 sources) Common bile duct calculus; 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: [Calculus of bile duct without cholangitis or cholecystitis without obstruction] 04-04-2021 Episodic Cancer of prostate (20 sources) Malignant neoplasm of prostate; 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: [Malignant tumor of prostate] Onset: 2 Chronic Cancer of prostate (2 sources) Personal history of malignant neoplasm of prostate; 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: [History of malignant neoplasm of prostate] Onset: 4 Episodic Deficiency and other anemia (13 sources) Iron deficiency anemia due to blood loss; 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: [Iron deficiency anemia secondary to blood loss (chronic)] Onset: 0 12-04-2022 Chronic Deficiency and other anemia (11 sources) Iron deficiency anemia; 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: [Iron deficiency anemia, unspecified] 02-11-2020 Episodic Diabetes mellitus with complications (20 sources) Type 2 diabetes mellitus with hyperglycemia; 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: [Type 2 diabetes mellitus] Onset: 3 Resolved: 4 Chronic Diabetes mellitus without complication (20 sources) Diabetes mellitus; 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: [Type 2 diabetes mellitus without complication] Onset: 3 01-19-2019 Chronic Diabetes mellitus without complication (4 sources) Glycosuria; 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: [Glycosuria] Onset: 3 Episodic Disorders of lipid metabolism (19 sources) Hypercholesterolemia; 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: [Pure hypercholesterolemia, unspecified] Onset: 3 01-19-2019 Chronic Esophageal disorders (20 sources) Gastroesophageal reflux disease; 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: [Gastro-esophageal reflux disease without esophagitis] Onset: 3 01-30-2019 Chronic Esophageal disorders (1 source) Esophageal disorders; 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: [Gastro-esophageal reflux disease without esophagitis] Onset: 4 Essential hypertension (19 sources) Hypertensive disorder; 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: [Benign essential hypertension] Onset: 3 01-19-2019 Chronic Hemorrhoids (7 sources) Hemorrhoids; 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: [Unspecified hemorrhoids] Episodic Hyperplasia of prostate (20 sources) Benign prostatic hypertrophy with outflow obstruction; 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: [Benign prostatic hyperplasia with lower urinary tract symptoms] Onset: 7 Chronic Malaise and fatigue (9 sources) Fatigue; 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: [Chronic fatigue, unspecified] Onset: 4 10-04-2023 Chronic Nausea and vomiting (1 source) Vomiting, unspecified; 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: [Vomiting, unspecified] Onset: 4 Episodic Osteoarthritis (20 sources) Arthritis of left knee; 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: [Unilateral primary osteoarthritis, left knee] Onset: 3 12-04-2022 Chronic Other aftercare (1 source) 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 (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 therapy; 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: [OTH MEDIATOR CURRENT DRUG THERAPY] Onset: 3 Episodic Other and unspecified benign neoplasm (5 sources) History of polyp of colon; 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: [Personal history of colonic polyps] Episodic Other bone disease and musculoskeletal deformities (13 sources) Posterior calcaneal exostosis; 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: [Juvenile osteochondrosis of tarsus, right ankle] Onset: 3 12-04-2022 Chronic Other diseases of kidney and ureters (1 source) Urinary tract obstruction; 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: [Other obstructive and reflux uropathy] Onset: 2 Episodic Other ear and sense organ disorders (13 sources) Chronic right myringitis; 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: [Chronic myringitis, right ear] Onset: 3 12-04-2022 Chronic Other gastrointestinal disorders (5 sources) Irritable bowel syndrome with diarrhea; 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: [Irritable bowel syndrome with diarrhea] Chronic Other gastrointestinal disorders (6 sources) Acquired arteriovenous malformation; 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: [Angiodysplasia of colon with hemorrhage] 09-02-2020 Episodic Other gastrointestinal disorders (11 sources) Dysphagia; 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: [Dysphagia, unspecified] 01-30-2019 Episodic Other gastrointestinal disorders (11 sources) Diarrhea; 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: [Diarrhea, unspecified] 01-30-2019 Episodic Other gastrointestinal disorders (5 sources) Esophageal dysphagia; 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: [Dysphagia, unspecified] Episodic Other gastrointestinal disorders (6 sources) Diarrhea, unspecified; 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: [Diarrhea] Onset: 3 Episodic Other gastrointestinal disorders (1 source) Dysphagia, unspecified Episodic Other gastrointestinal disorders (1 source) Other specified symptoms and signs involving the digestive system and abdomen Episodic Other nervous system disorders (13 sources) Difficulty walking; 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: [Difficulty in walking, not elsewhere classified] Onset: 3 12-04-2022 Chronic Other nervous system disorders (9 sources) Bilateral carpal tunnel syndrome; 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: [Carpal tunnel syndrome, bilateral upper limbs] Onset: 4 10-04-2023 Chronic Other non-traumatic joint disorders (1 source) Derangement of left shoulder joint; 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: [Other specific joint derangements of left shoulder, not elsewhere classified] 03-24-2024 Chronic Other nutritional; endocrine; and metabolic disorders (19 sources) Body mass index 30+ - obesity; 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: [Body mass index (BMI) 31.0-31.9, adult] Onset: 4 08-29-2023 Chronic Other nutritional; endocrine; and metabolic disorders (15 sources) Severe obesity; 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: [Morbid (severe) obesity due to excess calories] Onset: 3 07-30-2023 Chronic Other screening for suspected conditions (not mental disorders or infectious disease) (10 sources) Raised prostate specific antigen; 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: [Elevated prostate specific antigen [PSA]] Onset: 2 08-05-2021 Episodic Other upper respiratory disease (13 sources) Allergic rhinitis; 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: [Allergic rhinitis, unspecified] Onset: 3 12-04-2022 Chronic Other upper respiratory disease (13 sources) Rhinitis medicamentosa; 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: [Chronic rhinitis] Onset: 3 12-04-2022 Chronic Residual codes; unclassified (10 sources) Obstructive sleep apnea syndrome; 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: [Obstructive sleep apnea (adult) (pediatric)] Onset: 4 08-15-2023 Chronic Residual codes; unclassified (1 source) [...] apnea Onset: 4 Chronic Residual codes; unclassified (9 sources) Hypersomnia; 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: [Hypersomnia, unspecified] Onset: 4 10-04-2023 Chronic Residual codes; unclassified (1 source) Other specified postprocedural states; 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: [Other postprocedural status] 07-24-2023 Episodic Spondylosis; intervertebral disc disorders; other back problems (14 sources) Lumbar spondylosis; 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: [Spondylosis without myelopathy or radiculopathy, lumbar region] Onset: 3 06-07-2023 Chronic Past or Other Problems Problem Classification Problem Date Documented Da te Episodic/Chronic Acquired foot deformities (9 sources) Right foot drop; 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: [Foot drop, right foot] Onset: 10-09-2023 10-09-2023 Episodic Conditions associated with dizziness or vertigo (13 sources) Lightheadedness; 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: [Dizziness and giddiness] Onset: 11-19-2018 12-04-2022 Episodic Deficiency and other anemia (19 sources) Anemia; 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: [Anemia, unspecified] Onset: 12-04-2022 01-19-2019 Episodic Gastrointestinal hemorrhage (1 source) Melena; 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: [Melena] Onset: 04-27-2023 Episodic Genitourinary symptoms and ill-defined conditions (20 sources) Nocturia; 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: [Proteinuria] Onset: 12-04-2022 03-31-2019 Episodic Headache; including migraine (19 sources) Migraine; 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: [Migraine, unspecified, not intractable, without status migrainosus] Onset: 12-04-2022 Resolved: 06-07-2023 01-19-2019 Chronic Malaise and fatigue (13 sources) Fatigue; 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: [Other fatigue] Onset: 11-19-2018 12-04-2022 Episodic Mood disorders (6 sources) Mood disorders Onset: 06-29-2020 06-29-2020 Other aftercare (13 sources) Long-term current use of insulin; 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: [terminal block assembler (current) use of insulin] Onset: 12-04-2022 12-04-2022 Episodic Other aftercare (9 sources) Long-term current use of drug therapy; 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: [Other halfway (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 therapy] Onset: 08-29-2023 08-29-2023 Episodic Other circulatory disease (13 sources) Orthostatic hypotension; 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: [Orthostatic hypotension] Onset: 11-21-2018 12-04-2022 Episodic Other connective tissue disease (4 sources) Pain in right foot; 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: [PAIN IN RIGHT FOOT] Onset: 04-14-2022 Episodic Other connective tissue disease (13 sources) Full thickness rotator cuff tear; 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: [Complete rotator cuff tear or rupture of right shoulder, not specified as traumatic] Onset: 12-04-2022 12-04-2022 Episodic Other connective tissue disease (9 sources) Pain in right hand; 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: [Pain in right hand] Onset: 10-04-2023 10-04-2023 Episodic Other ear and sense organ disorders (13 sources) Bilateral hearing loss; 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: [Unspecified hearing loss, bilateral] Onset: 12-04-2022 Resolved: 06-07-2023 06-07-2023 Chronic Other nervous system disorders (13 sources) Carpal tunnel syndrome; 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: [Carpal tunnel syndrome, unspecified upper limb] Onset: 12-04-2022 Resolved: 06-07-2023 06-07-2023 Chronic Other nervous system disorders (9 sources) Muscle fasciculation; 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: [Fasciculation] Onset: 10-04-2023 10-04-2023 Episodic Otitis media and related conditions (13 sources) Dysfunction of right eustachian tube; 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: [Unspecified Eustachian tube disorder, right ear] Onset: 12-04-2022 12-04-2022 Episodic Residual codes; unclassified (13 sources) Bilateral lower limb edema; 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: [Localized edema] Onset: 06-07-2023 06-07-2023 Episodic Residual codes; unclassified (1 source) Other specified postprocedural states; 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: [Other specified postprocedural states] Onset: 07-24-2023 Episodic Residual codes; unclassified (9 sources) Memory impairment; 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: [Other amnesia] Onset: 10-04-2023 10-04-2023 Episodic Residual codes; unclassified (9 sources) Family history of Parkinson's disease; 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: [Family history of epilepsy and other diseases of the nervous system] Onset: 10-09-2023 10-09-2023 Episodic Screening and history of mental health and substance abuse codes (3 sources) Tobacco use and exposure - finding; 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: [Personal history of nicotine dependence] Onset: 08-15-2023 08-15-2023 Episodic Spondylosis; intervertebral disc disorders; other back problems (18 sources) Lumbar radiculopathy; 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: [Radiculopathy, lumbar region] Onset: 10-09-2023 10-09-2023 Episodic Substance-related disorders (19 sources) Cigarette smoker ; 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: [Nicotine dependence, cigarettes, uncomplicated] Onset: 12-04-2022 Resolved: 06-07-2023 10-06-2019 Chronic Results Test Name Value Interpretation Reference Range Facility BASIC METABOLIC PANLon 03-18 Anion gap [Moles/Vol] 9 mmol/L Normal 5-15 [facility] Comment on above: Performed By: #### C BCA, BMP, PINR #### [facility] ([id number]) [address], [address] [place] [address] Calcium [Mass/Vol] 9.7 mg/dL Normal 8.5-10.5 [facility] Comment on above: Performed By: #### C BCA, BMP, PINR #### [facility] ([id number]) [address], [address] [place] [address] Chloride [Moles/Vol] 99 mmol/L Normal 98-109 [facility] Comment on above: Performed By: #### C BCA, BMP, PINR #### [facility] ([id number]) [address], [address] [place] [address] CO2 [Moles/Vol] 23 mmol/L Normal 22-32 [facility] Comment on above: Performed By: #### C BCA, BMP, PINR #### [facility] ([id number]) [address], [address] [place] [address] Creatinine [Mass/Vol] 1.60 mg/dL High 0.60-1.30 [facility] Comment on above: Result Comment: METH OD TRACEABLE TO IDMS STANDARD Performed By: #### C BCA, BMP, PINR #### [facility] ([id number]) [address] [address] [place] [address] GFR/1.73 sq M.predicted among non-blacks MDRD (S/P/Bld) [Vol rate/Area] 47 mL/min/{1.73_m2} Low >59 [facility] Comment on above: Result Comment: Reported eGFR is based on the CKD-EPI 2020 equation that does not use a race coefficient. Performed By: #### C FLIP BMP, PINR #### [facility] ([id number]) [address] [address] [place] [address] Glucose [Mass/Vol] 210 mg/dL High 65-99 [facility] Comment on above: Performed By: #### C FLIP BMP, PINR #### [facility] ([id number]) [address] [address] [place] [address] Potassium [Moles/Vol] 5.9 mmol/L High 3.5-5.0 [facility] Comment on above: Performed By: #### C TORI CASTELAN, PINR #### [facility] ([id number]) [address] [address] [place] [address] Sodium [Moles/Vol] 131 mmol/L Low 134-146 [facility] Comment on above: Performed By: #### C FLIP BMP, PINR #### [facility] ([id number]) [address] [address] Urea nitrogen [Mass/Vol] 55 mg/dL High 5-27 [facility] Comment on above: Performed By: #### C FLIP BMP, PINR #### [facility] ([id number]) [address] [address] [place] [address] CBC AND AUTO DIFFon 03-18- 24 ABSOLUTE BASOPHIL 0.1 X10E9/L Normal 0.0-0.2 [facility] Comment on above: Performed By: #### C FLIP, BMP, PINR #### [facility] ([id number]) [address], [address] [place] [address] ABSOLUTE NEUTROPHIL 10.1 X10E9/L High 1.5-6.6 [facility] Comment on above: Performed By: #### C FLIP, BMP, PINR #### [facility] ([id number]) [address] [place] [address] Basophils/100 WBC (Bld) 0.4 % Normal [facility] Comment on above: Performed By: #### C FLIP, BMP, PINR #### [facility] ([id number]) [address], [address] [place] [address] Eosinophils (Bld) [#/Vol] 0.1 10*3/uL Normal 0.0-0.4 [facility] Comment on above: Performed By: #### C FLIP, BMP, PINR #### [facility] ([id number]) [address], [address] [place] [address] Eosinophils/100 WBC (Bld) 0.5 % Normal [facility] Comment on above: Performed By: #### C FLIP, BMP, PINR #### [facility] ([id number]) [address], [facility] [address] [place] [address] Erythrocyte distribution width (RBC) [Ratio] 14.1 % Normal 11.5-15.0 [facility] Comment on above: Performed By: #### C FLIP, BMP, PINR #### [facility] ([id number]) [address] [address] [place] [address] Hematocrit (Bld) [Volume fraction] 42.0 % Normal 39-49 [facility] Comment on above: Performed By: #### C BCA, BMP, PINR #### [facility] ([id number]) [address], [address] [place] [address] Hemoglobin (Bld) [Mass/Vol] 14.3 g/dL Normal 13.0-17.0 [facility] Comment on above: Performed By: #### C FLIP BMP, PINR #### [facility] ([id number]) [address], [facility] [address] [place] [address] Lymphocytes (Bld) [#/Vol] 1.8 10*3/uL Normal 1.0-3.5 [facility] Comment on above: Performed By: #### C FLIP, TORI, PINR #### [facility] ([id number]) [address], [facility] [address] [place] [address] Lymphocytes/100 WBC (Bld) 14.1 % Normal [facility] Comment on above: Performed By: #### C TORI CASTELAN, PINR #### [facility] ([id number]) [address], [address] [place] [address] MCH (RBC) [Entitic mass] 31.7 pg Normal 27-34 [facility] Comment on above: Performed By: #### TORI Vidales BCA, PINR #### [facility] ([id number]) [address], [address] [place] [address] MCHC (RBC) [Mass/Vol] 34.0 g/dL Normal 32-36 [facility] Comment on above: Performed By: #### C FLIP, BMP, PINR #### [facility] ([id number]) [address] [address] [place] [address] MCV (RBC) [Entitic vol] 93 fL Normal 80-100 [facility] Comment on above: Performed By: #### Flash CASTELAN, BMP, PINR #### [facility] ([id number]) [address], [address] [place] [address] Monocytes (Bld) [#/Vol] 0.5 10*3/uL Normal 0-0.9 [facility] Comment on above: Performed By: #### C FLIP BMP, PINR #### [facility] ([id number]) [address] [place] [address] Monocytes/100 WBC (Bld) 4.1 % Normal [facility] Comment on above: Performed By: #### C FLIP, BMP, PINR #### [facility] ([id number]) [address], [facility] [address] [place] [address] Neutrophils/100 WBC (Bld) 80.9 % Normal [facility] Comment on above: Performed By: #### C FLIP BMP, PINR #### [facility] ([id number]) [address], [facility] [address] [place] [address] Platelet mean volume (Bld) [Entitic vol] 7.4 fL Normal 7-12 [facility] Comment on above: Performed By: #### C FLIP, BMP, PINR #### [facility] ([id number]) [address], [facility] [address] [place] [address] Platelets (Bld) [#/Vol] 171 10*3/uL Normal 150-450 [facility] Comment on above: Performed By: #### C FLIP, BMP, PINR #### [facility] ([id number]) [address] [place] [address] RBC COUNT 4.51 X10E12/L Normal 4.10-5.70 [facility] Comment on above: Performed By: #### C FLIP, BMP, PINR #### [facility] ([id number]) [address], [address] [place] [address] WBC (Bld) [#/Vol] 12.5 10*3/uL High 4.0-11.0 [facility] Comment on above: Performed By: #### C BCA, BMP, PINR #### [facility] ([id number]) [address] [place] [address] CBC W Auto Differential pane l (Bld)on 03-18-2024 ABSOLUTE BASOPHIL 0.1 [facility] Comment on above: PERFORMED AT [facility] [address],[place] [address] Basophils/100 WBC (Bld) 0.4 % [facility] Eosinophils (Bld) [#/Vol] 0.1 10*3/uL [facility] Eosinophils/100 WBC (Bld) 0.5 % [facility] Erythrocyte distribution width (RBC) [Ratio] 14.1 % 11.5 - 15.0 % [facility] Hematocrit (Bld) [Volume fraction] 42.0 % 39 - 49 % [facility] Hemoglobin (Bld) [Mass/Vol] 14.3 g/dL 13.0 - 17.0 g/dL [facility] Interpretation and review of laboratory results Abnormal [facility] Lymphocytes (Bld) [#/Vol] 1.8 10*3/uL [facility] Lymphocytes/100 WBC (Bld) 14.1 % [facility] MCH (RBC) [Entitic mass] 31.7 pg 27 - 34 pg [facility] MCHC (RBC) [Mass/Vol] 34.0 g/dL 32 - 36 g/dL [facility] MCV (RBC) [Entitic vol] 93 fL 80 - 100 fL [facility] Monocytes (Bld) [#/Vol] 0.5 10*3/uL [facility] Monocytes/100 WBC (Bld) 4.1 % [facility] Neutrophils (Bld) [#/Vol] 10.1 10*3/uL High [facility] Neutrophils/100 WBC (Bld) 80.9 % [facility] Platelet mean volume (Bld) [Entitic vol] 7.4 fL 7 - 12 fL [facility] Platelets (Bld) [#/Vol] 171 10*3/uL [facility] RBC (Bld) [#/Vol] 4.51 10*6/uL [facility] WBC corrected for nucl RBC Auto (Bld) [#/Vol] 12.5 High [facility] PROTIME AND INRon 03-18-2024 INR Coag (PPP) [Relative time] 1.0 {INR} Normal 0.8-1.1 [facility] Comment on above: Performed By: #### C FLIP, TORI, PINR #### [facility] ([id number]) [address] [place] [address] PT Coag (PPP) [Time] 11.7 s Normal 9.8-13.2 [facility] Comment on above: Performed By: #### C FLIP, BMP, PINR #### [facility] ([id number]) [address] [place] [address] Ambulatory Visit Summaryon 0 02-04-2024 Ambulatory Visit Summary Ambulatory Visit Summary MILAD SEYMOUR :1955 Visit Date:02/04/2024 Ambulatory Visit Instructions Your Diagnosis Personal history of prostate cancer Enlarged prostate with urinary obstruction Your Care Team Attending Physician - NICOLA RAYMUNDO, Peterson Owens Primary Care Physician - ALBER RAYMUNOD, DANK This Is Your Medications List Contact prescribing physician if questions or concerns aspirin (aspirin 81 mg Oral EC Tab) celecoxib fluoxetine (FLUoxetine 20 mg Cap) fluticasone nasal (fluticasone 0.05 mg/inh Nasal [place]) insulin lispro (Insulin Lispro KwikPen 100 units/mL [...] Alberts When: Where: [facility] [address], [place] [phone] Medications What How Much When Instructions Unchanged aspirin (aspirin 81 mg Oral EC Tab) By Mouth Every day Contact prescribing physician if questions or concerns Unchanged celecoxib By Mouth Contact prescribing physician if questions or concerns Unchanged fluoxetine (FLUoxetine 20 mg Cap) 1 Capsules By Mouth Contact prescribing physician if questions or concerns Unchanged fluticasone nasal (fluticasone 0.05 mg/ inh Nasal [place]) Nasal Inhalation Every day Contact prescribing physician [...] with pro (more content not included)... Normal [facility] Urology Office/Clinic Noteon 02-04-2024 Urology Office/Clinic Note [...] x2 and one suspicious. TRUS/bx 09/23/19 - [place] 6 (3+3) x3, 26% involved with JOSE [...] [facility] [address], [place] [phone] Additional Instructions: 1 yr w/ PSA Patient Education Prostate Cancer Screening IJohana, personally scribed for Dr. Petersen on 02/04/2024 12:50:31. . Documentation recorded by the ginibJohana jaime, accurately reflects the services(s) I performed and [...] 1 cap(s), Oral fluticasone 0.05 mg/inh Nasal [place], Nasal, Daily Ilumya 100 mg/mL subcutaneous solution, [...] Recorded SARS-CoV- (more content not included)... Normal [facility] Comment on above: Result Comment: Elec tronically Signed By: Peterson PETERSEN MD\.br\Date and Time Signed: 02/04/24 12:52 EDT\.br\Electronically Co-Signed By: Johana Reeves\.br\Date and Time Co-Signed: 02/04/24 12:50 EDT NM gastric emptying studyon 08-22-2023 NM gastric emptying study [facility] [place] [address] Nuclear Medicine Report Signed Patient: Milad Seymour MR#: [id number] : 1955 Acct:[id number] Age/Sex: 67 / M ADM Date: 08/22/23 Loc: [place] Room: Type: [facility] Attending Dr: Kike Bernal MD [...] Grimes Jr., D.OJitendra08/22/2023 12:21 PM Dictation Location: [place] [address] Transcribed By: [facility] 08/22/23 1221 Dictated By: Shaheen Grimes Jr, DO 08/22/23 1215 Signed By: 08/22/23 1221 Normal [facility] Glucose Poct Glucometerson 0 08-20-2023 Glucose [Mass/Vol] 182 mg/dL Normal [facility] Comment on above: Result Comment: [facility] Glucose Reference Range is dependent on time and content of last meal. Glucose of more than 200 mg/dL in a nonstressed, ambulatory subject supports the diagnosis of Diabetes Mellitus. PERFORMED BY: [address] [place] [address] PATHOLOGIST UX VISUAL DESIGNER JEANNINE VAZQUEZ M.D. Performed By: #### G LUCI #### Point of Care testing , Glucose [Mass/Vol] 227 mg/dL Normal [facility] Comment on above: Result Comment: [facility] Glucose Reference Range is dependent on time and content of last meal. Glucose of more than 200 mg/dL in a nonstressed, ambulatory subject supports the diagnosis of Diabetes Mellitus. PERFORMED BY: [place] [address] PATHOLOGIST UX VISUAL DESIGNER JEANNINE VAZQUEZ M.D. Performed By: #### G LULS #### Point of Care testing , XR pre/post mri xrayon 08-19 XR pre/post mri xray [facility] [place] [address] [place], [place] [id number] MRI Report Signed Patient: Milad Seymour MR#: [id number] : 1955 Acct:[id number] Age/Sex: 67 / M ADM Date: 08/20/23 Loc: [place] Room: Type: [facility] Attending Dr: Dank Campo MD Copies to: Dank Campo MD Ordering Provider: Dank Campo MD Date of Service: 08/20/23 MR/MR lumbar spine wo con: [id number] ([id number]) XR/XR pre/post mri xray: PRE LUMBAR MRI [...] Tom Chanel M.D.08/20/2023 1:02 PM Dictation Location: [place] [address] Transcribed By: [facility] 08/20/23 1302 Dictated By: Tom Chanel DO 08/20/23 1250 Signed By: 08/20/23 1302 Normal [facility] HbA1c (Bld) [Mass fraction]o n 07-30-2023 Interpretation and review of laboratory results Abnormal [facility] - Hematology and Cell countson 07-30-2023 HbA1c (Bld) [Mass fraction] 8.9 % [facility] CT shoulder LT w conon 07-24 CT shoulder LT w con [facility] [place] [address] [place] [address] CT Scan Report Signed Patient: Milad Seymour MR#: [id number] : 1955 Acct:[id number] Age/Sex: 67 / M ADM Date: 07/24/23 Loc: XD Room: Type: [facility] Attending Dr: Edd Holden BODY HANGER-C Copies to: Edd Holden HEARING SPECIALIST Ordering Provider: Edd Holden CNP Date of [...] Kamran Chavira M.D.07/24/2023 1:48 PM Dictation Location: [place] [address] Transcribed By: WOODY 07/24/23 1348 Dictated By: Kamran Chavira II, MD 07/24/23 1336 Signed By: 07/24/23 1348 Normal [facility] [place] guided needle placementon 07-24-2023 FL guided needle placement [facility] [place] [address] [place] [address] Fluoroscopy Report Signed Patient: Milad Seymour MR#: [id number] : 1955 Acct:[id number] Age/Sex: 67 / M ADM Date: 07/24/23 Loc: Room: Type: [facility] Attending Dr: Edd oHlden BODY HANGER-C Copies to: Edd Holden HEARING SPECIALIST Ordering Provider: Edd Holden CNP Date of [...] Kamran Chavira M.D.07/24/2023 12:39 PM Dictation Location: [place] [address] Transcribed By: WOODY 07/24/23 1239 Dictated By: Kamran Chavira II, MD 07/24/23 1231 Signed By: 07/24/23 1239 Normal [facility] Capillary blood glucose deb urement by glucometer (mass/volume)Ordered By: Kike Bernal on 04-27-2023 Glucose [Mass/Vol] 189 mg/dL Normal [facility] Comment on above: Random Glucose Refer ence Range is dependent on time and content of last meal. Glucose of more than 200 mg/dL in a nonstressed, ambulatory subject supports the diagnosis of Diabetes Mellitus. Result Comment: Koppel om Glucose Reference Range is dependent on time and content of last meal. Glucose of more than 200 mg/dL in a nonstressed, ambulatory subject supports the diagnosis of Diabetes Mellitus. Performed By: #### G LUCI #### Point of Care testing , Glucose Poct Glucometerson 1 06-27-2022 Commemt1 Glu2: Cleaned Meter Normal [facility] Comment on above: Result Comment: PERF ORMED BY: [facility] [address] [place] [address] PATHOLOGIST [employer]X VISUAL DESIGNER JEANNINE VAZQUEZ M.D. Performed By: #### G LUCI #### Point of Care testing , William 04-27-2023 L ------ Specimen: [id number] Received: 04/27/23 Status: MASSIEL Holloway Num: [id number] Spec Type: Surgical Subm Dr: Kike Bernal MD Tissues: A Colon Biopsy (RANDOM COLON) Procedures: HE/2, Gross/Micro L4 Age/ Patient Sex Location Account Attending Physician Milad Seymour/M [id number] Kike Bernal MD SPEC NUM: [id number] RECD: 04/27/23 STATUS: MASSIEL HOLLOWAY NUM: [id number] KURT: 04/27/23 DR: Kike Bernal MD ENTERED: 04/27/23 CARL SINGH: SPEC TYPE: Surgical DEPT: S ORDERED: HE/2, Gross/Micro [...] microscopic examination confirms the diagnosis. CPT Codes 35820 Specimen: [id number] Received: 04/27/23 Status: MASSIEL Junior Num: [id number] Spec Type: Surgical Subm Dr: Kike Bernal MD Tissues: A Colon Biopsy (RANDOM COLON) Procedures: EVELIA/Rianna, Gross/Micro L4 Patient: Milad Seymour [id number] (Continued) Signed (signature on file) Kaushal Magana MD 04/30/23 1325 Normal [facility] No Panel InformationOrdered By: Kike Bernal on 04-27-2023 Bedside Glucose Comment Glu2: cleaned meter [facility] Patient Educationon 02-13-20 Patient Education Oncology [...] likelihood that the cancer will spread. ? [place] 6 or lower: This indicates that the cancer cells look similar to normal prostate cells (well differentiated). ? [place] 7: This indicates that the cancer cells look somewhat similar to normal prostate cells (moderately differentiated). ? [place] 8, 9, or 10: This indicates that [...] external be (more content not included)... Normal [facility] Reminderson 02-12-2023 Reminders - From: Johana Reeves To: NOREEN Petersen; Sent: 02/12/2023 17:56:32 EDT Show up: 01/13/2024 17:56:00 EDT Subject: PSA prior to appt Reminder Message Please Remember to:_have pt get PSA done prior to appt in 1 year. Normal [facility] Urology Office/Clinic Noteon 02-12-2023 Urology [...] Owens, URL [facility] [address] [place] [address] [phone] Additional Instructions: 1 yr w/ PSA Patient [...] TID celecoxib, Oral fluticasone 0.05 mg/inh Nasal [place], Nasal, Daily Insulin Lispro KwikPen 100 units/mL [...] used for this result was chemiluminescence using [facility]'s Access Hybritech PSA reagent. PSA Total 0.5 ng/mL 11/28/2022 11:31 EDT The concentration of P (more content not included)... Normal [facility] Comment on above: Result Comment: Elec tronically Signed By: NICOLA RAYMUNDO, Peterson Owens\.french\Date and Time Signed: 02/12/23 10:15 EDT\.br\Electronically Co-Signed [...] celecoxib fluticasone nasal (fluticasone 0.05 mg/inh Nasal [place]) lansoprazole lisinopril metformin metoprolol (metoprolol 25 mg ER Tab) simvastatin Procedures Performed Laparoscopic cholecystectomy (03/2021), Radiation (01/16/2020), Transrectal biopsy of prostate using ultrasound (US) guidance (09/23/2019), Transrectal biopsy of prostate using ultrasound (US) guidance (09/03/2018), Appendectomy, Colonoscopy, Tonsillectomy. What to do next Scheduled Follow-Up Appointments Sunday 9:15 AM EDT With: NICOLA RAYMUNDO, Peterson Owens Where: [facility] CHEMISTRYOrdered By: SYSTEM SYSTEM on 02-06-2023 Prostate specific Ag [Mass/Vol] 0.4 ng/mL Normal 0.1 - 3.5 ng/mL [facility] Remisol PSA Totalon 02-06-2023 Prostate specific Ag [Mass/Vol] 0.4 ng/mL Normal 0.1-3.5 [facility] Comment on above: Result Comment: The concentration of PSA determined by different manufacturers can vary due to differences in assay methods and reagent specificity. Values obtained from different assay methods cannot be used interchangeably. The methodology used for this result was chemiluminescence using [facility]'s Access Hybritech PSA reagent. Performed By: #### 1 [id number] #### [facility] [address] [place] [address] PANCREATIC ELASTASE FECALon 09-24-2022 Pancreatic Elastase, Fecal 467 ug Elast./g Normal >200 [facility] Comment on above: Result Comment: Nicolle re Pancreatic Insufficiency: <100 Moderate Pancreatic Insufficiency: 100 - 200 Normal: >200 Performed By: #### C PEPT #### [facility] [address] [place] [address] Dr. Stewart De La Cruz POTASSIUM, FECALon 3 Potassium, Stool 57 mmol/L Normal [facility] Comment on above: Result Comment: INTE RPRETIVE INFORMATION: Fecal Potassium A reference interval has not been established for fecal specimens. This test was developed and its performance characteristics determined by [employer]. It has not been cleared or approved by the [place] Food and Drug Administration. This test was performed in a CLIA certified laboratory and is intended for clinical purposes. Performed By: #### C PEPT #### [facility] [address] [place] [address] Dr. Stewart De La Cruz SODIUM, FECALon 09-17-2022 Sodium, Stool 65 mmol/L Normal [facility] Comment on above: Result Comment: INTE RPRETIVE INFORMATION: Fecal Sodium A reference interval has not been established for fecal specimens. This test was developed and its performance characteristics determined by [employer]. It has not been cleared or approved by the US Food and Drug Administration. This test was performed in a CLIA certified laboratory and is intended for clinical purposes. Performed By: #### F ECALN #### [facility] [address] [place] [address] Dr. Stewart De La Cruz CALPROTECTIN, FECALon 2022 Calprotectin, Fecal 43 ug/g Normal 0-120 [facility] Comment on above: Result Comment: Conc entration Interpretation Follow-Up <16 - 50 ug/g Normal None >50 -120 ug/g Borderline Re-evaluate in 4-6 weeks >120 ug/g Abnormal Repeat as clinically indicated Performed By: #### C PEPT #### [facility] [address] [place] [address] Dr. Stewart De La Cruz C-PEPTIDE, SERUMon 3 C-Peptide, Serum 6.5 ng/mL Critically high 1.1-4.4 [facility] Comment on above: Result Comment: C-Pe ptide reference interval is for fasting patients. Performed By: #### C PEPT #### [facility] [address] [place] [address] Dr. Stewart De La Cruz HIV 1 AND 2 WITH REFLEXon HIV Screen 4th Generation wRfx Non-Reactive Normal Non Reactive [facility] Comment on above: Result Comment: HIV Negative HIV-1/HIV-2 antibodies and HIV-1 p24 antigen were NOT detected. There is no laboratory evidence of HIV infection. Performed By: #### C PEPT #### [facility] [address] [place] [address] Dr. Stewart De La Cruz INSULINon 09-13-2022 Insulin 13.9 uIU/mL Normal 2.6-24.9 [facility] Comment on above: Performed By: #### C PEPT #### [facility] [address] [place] [address] Dr. Stewart De La Cruz POTASSIUM, FECALon 3 Potassium, Stool QNSMT Normal [facility] Comment on above: Result Comment: Test not performed. One specimen was submitted with requests for multiple tests. The requested testing requires a separate specimen for each test requested. contacted Keesha at your facility on 09-13-2022 Performed By: #### C PEPT #### [facility] [address] [place] [address] Dr. Stewart De La Cruz SODIUM, FECALon 09-13-2022 Sodium, Stool QNSMT Normal [facility] Comment on above: Result Comment: Test not performed. One specimen was submitted with requests for multiple tests. The requested testing requires a separate specimen for each test requested. contacted Keesha at your facility on 09-13-2022 Performed By: #### F ECALN #### [facility] [address] [place] [address] Dr. Stewart De La Cruz CBC AUTO DIFFon 09-12-2022 BASO # 0.1 103/ul Normal 0.0-0.1 [facility] Comment on above: Performed By: #### C PEPT #### [facility] [address] [place] [address] Dr. Stewart De La Cruz Basophils/100 WBC (Bld) 1.2 % Normal 0.2-2.0 [facility] Comment on above: Performed By: #### C PEPT #### [facility] [address] [place] [address] Dr. Stewart De La Cruz EO # 0.3 103/ul Normal 0.0-0.7 [facility] Comment on above: Performed By: #### C PEPT #### [facility] [address] [place] [address] Dr. Stewart De La Cruz Eosinophils/100 WBC (Bld) 4.5 % Normal 0.9-7.0 [facility] Comment on above: Performed By: #### C PEPT #### [facility] [address] [place] [address] Dr. Stewart De La Cruz Erythrocyte distribution width (RBC) [Ratio] 12.9 % Normal 11.0-15.0 [facility] Comment on above: Performed By: #### C PEPT #### [facility] [address] [place] [address] Dr. Stewart De La Cruz Hematocrit (Bld) [Volume fraction] 44.6 % Normal 42.0-54.0 [facility] Comment on above: Performed By: #### C PEPT #### [facility] [address] [place] [address] Dr. Stewart De La Cruz Hemoglobin (Bld) [Mass/Vol] 14.9 g/dL Normal 14.0-18.0 [facility] Comment on above: Performed By: #### C PEPT #### [facility] [address] [place] [address] Dr. Stewart De La Cruz IG # 0.03 10e3/ul Normal 0.00-0.03 [facility] Comment on above: Performed By: #### C PEPT #### [facility] [address] [place] [address] Dr. Stewart De La Cruz IG % 0.5 % Normal 0.0-0.5 [facility] Comment on above: Performed By: #### C PEPT #### [facility] [address] [place] [address] Dr. Stewart De La Cruz LYMPH # 1.1 103/ul Critically low 1.2-3.8 [facility] Comment on above: Performed By: #### C PEPT #### [facility] [address] [place] [address] Dr. Stewart De La Cruz Lymphocytes/100 WBC (Bld) 18.5 % Critically low 20.5-60.0 [facility] Comment on above: Performed By: #### C PEPT #### [facility] [address] [place] [address] Dr. Stewart De La Cruz MANUAL DIFF REQ NO Normal [facility] Comment on above: Performed By: #### C PEPT #### [facility] [address] [place] [address] Dr. Stewart De La Cruz MCH (RBC) [Entitic mass] 29.2 pg Normal 25.9-34.0 [facility] Comment on above: Performed By: #### C PEPT #### [facility] [address] [place] [address] Dr. Stewart De La Cruz MCHC (RBC) [Mass/Vol] 33.4 g/dL Normal 29.9-35.2 [facility] Comment on above: Performed By: #### C PEPT #### [facility] [address] [place] [address] Dr. Stewart De La Cruz MCV (RBC) [Entitic vol] 87.5 fL Normal 80.0-94.0 [facility] Comment on above: Performed By: #### C PEPT #### [facility] [address] [place] [address] Dr. Stewart De La Cruz MONO # 0.4 103/ul Normal 0.3-0.8 [facility] Comment on above: Performed By: #### C PEPT #### [facility] [address] [place] [address] Dr. Stewart De La Cruz Monocytes/100 WBC (Bld) 6.8 % Normal 1.7-12.0 [facility] Comment on above: Performed By: #### C PEPT #### [facility] [address] [place] [address] Dr. Stewart De La Cruz NEUT # 4.2 103/ul Normal 1.4-6.5 [facility] Comment on above: Performed By: #### C PEPT #### [facility] [address] [place], [place] [id number] Dr. Stewart De La Cruz Neutrophils/100 WBC (Bld) 68.5 % Normal 43.0-75.0 [facility] Comment on above: Performed By: #### C PEPT #### [facility] [address] [place] [address] Dr. Stewart De La Cruz Platelet mean volume (Bld) [Entitic vol] 9.8 fL Normal 9.5-13.5 [facility] Comment on above: Performed By: #### C PEPT #### [facility] [address] [place] [address] Dr. Stewart De La Cruz PLT 133 103/ul Critically low 150-450 [facility] Comment on above: Performed By: #### C PEPT #### [facility] [address] [place] [address] Dr. Stewart De La Cruz RBC 5.10 106/ul Normal 4.70-6.10 [facility] Comment on above: Performed By: #### C PEPT #### [facility] [address] [place] [address] Dr. Stewart De La Cruz WBC 6.1 103/ul Normal 4.0-11.0 [facility] Comment on above: Performed By: #### C PEPT #### [facility] [address] [place] [address] Dr. Stewart De La Cruz CRPon 09-12-2022 CRP [Mass/Vol] mg/L Normal <=1.0 [facility] Comment on above: Performed By: #### C RP #### [facility] [address] [place] [address] Dr. Stewart De La Cruz GLYCOHEMOGLOBIN A1Con 2022 ADA RECOMMENDATION SEE BELOW Normal [facility] Comment on above: Result Comment: ADA RECOMMENDED LIMIT 4.0 - 6.0 ADA THERAPEUTIC TARGET < 7.0 ACTION SUGGESTED > 7.0 Performed By: #### A 1C #### [facility] [address] [place] [address] Dr. Stewart De La Cruz Glucose [Mass/Vol] 278 mg/dL Normal [facility] Comment on above: Performed By: #### A 1C #### [facility] [address] [address] [address] Stewart De La Cruz HbA1c (Bld) [Mass fraction] 11.3 % Critically high 4.5-6.2 [facility] Comment on above: Performed By: #### A 1C #### [facility] [address] [place] [address] Dr. Stewart De La Cruz PROF CHEM 8 (BAS METB)on Anion gap [Moles/Vol] 16.9 mmol/L Normal [facility] Comment on above: Performed By: #### C PEPT #### [facility] [address] [place] [address] Dr. Stewart De La Cruz Calcium [Mass/Vol] 9.3 mg/dL Normal 8.5-10.1 [facility] Comment on above: Performed By: #### C PEPT #### [facility] [address] [place] [address] Dr. Stewart De La Cruz Chloride [Moles/Vol] 103 mmol/L Normal 98-107 [facility] Comment on above: Performed By: #### C PEPT #### [facility] [address] [place] [address] Dr. Stewart De La Cruz CO2 [Moles/Vol] 26.0 mmol/L Normal 21.0-32.0 [facility] Comment on above: Performed By: #### C PEPT #### [facility] [address] [place] [address] Dr. Stewart De La Cruz Creatinine [Mass/Vol] 1.43 mg/dL Critically high 0.70-1.30 [facility] Comment on above: Performed By: #### C PEPT #### [facility] [address] [place] [address] Dr. Stewart De La Cruz EGFR-AF [place] 60 mL/min/1.73m2 Normal >=60 [facility] Comment on above: Performed By: #### C PEPT #### [facility] [address] [place] [address] Dr. Stewart De La Cruz EGFR-NON AF [place] 49 mL/min/1.73m2 Critically low >=60 [facility] Comment on above: Performed By: #### C PEPT #### [facility] [address] [address] [address] Stewart De La Cruz Glucose [Mass/Vol] 293 mg/dL Critically high 74-106 [facility] Comment on above: Performed By: #### C PEPT #### [facility] [address] [address] [address] Stewart De La Cruz Potassium [Moles/Vol] 4.9 mmol/L Normal 3.5-5.1 [facility] Comment on above: Performed By: #### C PEPT #### [facility] [address] [address] [address] Stewart De La Cruz Sodium [Moles/Vol] 141 mmol/L Normal 136-145 [facility] Comment on above: Performed By: #### C PEPT #### [facility] [address] [address] [address] Stewart De La Cruz Urea nitrogen [Mass/Vol] 32.0 mg/dL Critically high 7.0-18.0 [facility] Comment on above: Performed By: #### C PEPT #### [facility] [address] [address] [address] Stewart De La Cruz Urea nitrogen/Creatinine [Mass ratio] 22.4 mg/mg Normal [facility] Comment on above: Performed By: #### C PEPT #### [facility] [address] [address] [address] Stewart De La Cruz SED RATE [facility] 2022 SED RATE 17 mm/hr Normal <=20 [facility] Comment on above: Performed By: #### S EDR #### [facility] [address] [address] [address] Stewart De La Cruz RAD EGD - documentation only do not orderon 07-25-2022 RAD EGD - documentation only do not order [employer] Other Glucose Glucometer (BldC) [M ass/Vol]Ordered By: Kike Bernal on 07-24-2022 Glucose [Mass/Vol] 275 mg/dL [facility] Comment on above: Random Glucose Refer ence Range is dependent on time and content of last meal. Glucose of more than 200 mg/dL in a nonstressed, ambulatory subject supports the diagnosis of Diabetes Mellitus. GLYCOHEMOGLOBIN A1Con 2021 ADA RECOMMENDATION SEE BELOW Normal [facility] Comment on above: Result Comment: ADA RECOMMENDED LIMIT 4.0 - 6.0 ADA THERAPEUTIC TARGET < 7.0 ACTION SUGGESTED > 7.0 Performed By: #### A 1C #### [facility] [address] [place] [address] Dr. Stewart De La Cruz Glucose [Mass/Vol] 235 mg/dL Normal [facility] Comment on above: Performed By: #### A 1C #### [facility] [address] [place] [address] Dr. Stewart De La Cruz HbA1c (Bld) [Mass fraction] 9.8 % Critically high 4.5-6.2 [facility] Comment on above: Performed By: #### A 1C #### [facility] [address] [place] [address] Dr. Stewart De La Cruz GLYCOHEMOGLOBIN A1Con 2021 ADA RECOMMENDATION SEE BELOW Normal [facility] Comment on above: Result Comment: ADA RECOMMENDED LIMIT 4.0 - 6.0 ADA THERAPEUTIC TARGET < 7.0 ACTION SUGGESTED > 7.0 Performed By: #### A 1C #### [facility] [address] [place] [address] Dr. Stewart De La Cruz Glucose [Mass/Vol] 197 mg/dL Normal [facility] Comment on above: Performed By: #### A 1C #### [facility] [address] [place] [address] Dr. Stewart De La Cruz HbA1c (Bld) [Mass fraction] 8.5 % Critically high 4.5-6.2 [facility] Comment on above: Performed By: #### A 1C #### [facility] [address] [place] [address] Dr. Stewart De La Cruz PSA, FREE AND TOTAL RATIOon 01-28-2022 % Free PSA 30.0 % Normal [facility] Comment on above: Result Comment: The [...] men. Performed By: #### P SAFREE #### [facility] [address] [place] [address] Dr. Stewart De La Cruz Prostate specific Ag [Mass/Vol] 0.1 ng/mL Normal 0.0-4.0 [facility] Comment on above: Result Comment: Nina PUCKETT methodology. . According to the [employer], Serum PSA should decrease and [...] disease. Performed By: #### P SAFREE #### [facility] [address] [place] [address] Dr. Stewart De La Cruz PSA, Free 0.03 ng/mL Normal N/A [facility] Comment on above: Result Comment: Nina PUCKETT methodology. Performed By: #### P SAFREE #### [facility] [address] [place] [address] Dr. Stewart De La Cruz GLYCOHEMOGLOBIN A1Con 2021 ADA RECOMMENDATION SEE BELOW Normal [facility] Comment on above: Result Comment: ADA RECOMMENDED LIMIT 4.0 - 6.0 ADA THERAPEUTIC TARGET < 7.0 ACTION SUGGESTED > 7.0 Performed By: #### A 1C #### [facility] [address] [place] [address] Dr. Stewart De La Cruz Glucose [Mass/Vol] 192 mg/dL Normal [facility] Comment on above: Performed By: #### A 1C #### [facility] [address] [address] [address] Stewart De La Cruz HbA1c (Bld) [Mass fraction] 8.3 % Critically high 4.5-6.2 [facility] Comment on above: Performed By: #### A 1C #### [facility] [address] [place], [place] [address] Dr. Stewart COLESOVon 02-01-2021 CNOV Office Visit (RADTSA ) -- MILAD SEYMOUR ([id number]) 1955 M Date Time Provider Department 02/01/21 [...] ASSESSMENT/PLAN:DIAGNOSIS: Prostate adenocarcinoma, initial PSA 14.65, biopsy [place] score 3 + 3 = 6 (grade [...] Fawad Diaz MD cc: Dank Campo MD ([facility]) [address] [place] [address] Dr. Petersen Portions of the above note extracted and edited from previous visit as well as active information included in the EMR. Referring Provider: Fawad DIAZ [[id number]] Allergies As of Date: 02/01/2021 (No Known Allergies) Date Reviewed: 02/01/2021 Reviewed by: Tila Herrera LPN - Fully Assessed Reason for Visit: Prostate Cancer [590] Primary Visit Diagnosis:Malignant neoplasm of prostate (HCC) [C61] Order(s):PSA/PROSTSPECAG DIAG [SQPSA] Order #: [id number] FUTURE Prescriptions as of 02/03/2021 - aspirin, [...] magnesium) t (more content not included)... Normal [facility] PSA, [employer] 01-25-2021 PSA, Diagnostic 0.29 ng/mL Normal 0.00-2.59 [facility] Comment on above: Result Comment: Sandra manzo PSA test methodology used is the Electrochemiluminescence Immunoassay. Performed By: #### P #### [facility] [address] [place], [place] [address] OBSOLETEon 12-22-2020 OBSOLETE Refill (RADTSA) -- MILAD SEYMOUR ([id number]) 1955 M Date Time Provider Department 12/22/20 [...] Encounter Status:Closed by TILA HERRERA on 01/04/21 [facility] Nancy 11-03-2020 CNOV Office Visit (RADTSA ) -- MILAD SEYMOUR ([id number]) 1955 M Date Time Provider Department 11/03/20 4:00 PM LAB/PORT RADT ADAM COCHRAN During your visit today, we recorded the following information about you: Referring Provider: Fawad DIAZ [[id number]] Allergies As of Date: 11/03/2020 (No Known [...] Encounter Status:Closed by TILA HERRERA on 11/03/20 [facility] CNOV Office Visit (RADTSA ) -- LIONMILAD Mulugeta ([id number]) 1955 M Date Time Provider Department 11/03/20 [...] ASSESSMENT/PLAN:DIAGNOSIS: Prostate adenocarcinoma, initial PSA 14.65, biopsy [place] score 3 + 3 = 6 (grade [...] Fawad Diaz MD cc: Dank Campo MD ([facility]) [address] [place] [address] Dr. Petersen Referring Provider: Fawad DIAZ [[id number]] Allergies As of Date: 11/03/2020 (No Known Allergies) Date Reviewed: 11/03/2020 Reviewed by: Fawad Diaz MD - Fully Assessed Reason for Visit: Prostate Cancer [590] Primary Visit Diagnosis:Malignant neoplasm of prostate (HCC) [C61] Order(s):PSA/PROSTSPECAG DIAG [SQPSA] Order #: [id number] FUTURE Prescriptions as of 11/03/2020 Sig: TAMSULOSIN [...] 30 mg (more content not included)... Normal [facility] PSA, [facility] 11-01-2020 PSA, Diagnostic 0.27 ng/mL Normal 0.00-2.59 [facility] Comment on above: Result Comment: Sandra manzo PSA test methodology used is the Electrochemiluminescence Immunoassay. Performed By: #### P SA #### [facility] [address] [place], [place] [address] [facility] 10-29-2020 [facility] Telephone (RADTSA) -- MILAD SEYMOUR ([id number]) 1955 M Date Time Provider Department 10/29/20 [...] since completing radiation therapy. Call transferred to [facility] to move up appointment. Dr. [...] (HCC) [C61] Order(s):PSA/PROSTSPECAG DIAG [SQPSA] Order #: [id number] FUTURE Prescriptions as of 10/29/2020 Sig: TAMSULOSIN [...] Encounter Status:Closed by TILA HERRERA on 10/29/20 [facility] [facility] -- MILAD SEYMOUR ([id number]) 1955 M Date Time Provider Department 10/08/20 HEATHER BARRIGA During your visit today, we recorded the following information about you: Allergies As of Date: 10/08/2020 (No Known Allergies) Date Reviewed: 07/14/2020 Reviewed by: Joann Richardson - Fully Assessed Reason for Visit: Lab Orders [1688] Primary Visit Diagnosis:Iron deficiency anemia due to chronic blood loss [D50.0] Order(s):CBC + DIFF (FOR REMOTE [facility] USE) [SQRCBCDF] Order #: [id number] FUTURE COMP METABOLIC PANEL [SQCMP] Order #: [id number] FUTURE Prescriptions as of 10/08/2020 Sig: TAMSULOSIN [...] Encounter Status:Closed by TASHA GOOD on 10/14/20 [facility] OBSOLETEon 09-20-2020 OBSOLETE Refill (RADTSA) -- LIONMILAD Mulugeta ([id number]) 1955 M Date Time Provider Department 09/20/20 [...] Status:Closed by TILA HERRERA on 10/14/20 Normal [facility] Vital Signs Date Time Vital Sign Value Performing Clinician Facility 04-08-2024 10:00-0400 Body height 177.8 cm Rebecca Dias PA Work Phone: [facility] 04-08-2024 10:00-0400 Body mass index (BMI) [Ratio] 35.73 kg/m2 Rebecca Dias PA Work Phone: [facility] 04-08-2024 10:00-0400 Body weight 112.95 kg Rebecca Dias PA Work Phone: [facility] 03-18-2024 08:28-0400 Body height 177.8 cm Rebecca Dias PA Work Phone: [facility] 03-18-2024 08:28-0400 Body mass index (BMI) [Ratio] 35.73 kg/m2 Rebecca Dias PA Work Phone: [facility] 03-18-2024 08:28-0400 Body weight 112.95 kg Rebecca Dias PA Work Phone: [facility] 03-17-2024 10:19-0400 Body height 175.26 cm [facility] 03-17-2024 10:19-0400 Body mass index (BMI) [Ratio] 37 kg/m2 [facility] 03-17-2024 10:19-0400 Body weight 114 kg [facility] 02-04-2024 11:45-0400 Diastolic blood pressure 74 mm[Hg] Peterson PETERSEN [facility] 02-04-2024 11:45-0400 Heart rate 66 /min Peterson PETERSEN [facility] 02-04-2024 11:45-0400 Respiratory rate 16 /min Peterson PETERSEN [facility] 02-04-2024 11:45-0400 Systolic blood pressure 116 mm[Hg] Peterson PETERSEN [facility] 08-15-2023 13:35-0500 Diastolic blood pressure 60 mm[Hg] Gregoriacortney Ralph [employer] SPECIALIST Work Phone: [facility] [employer] [facility] 08-15-2023 13:35-0500 Systolic blood pressure 107 mm[Hg] Gregoriacortney Ralph [employer]HEARING SPECIALIST Work Phone: [facility] [employer] 08-15-2023 13:33-0500 Body height 175.3 cm Gregoriacortney Ralph [employer]HEARING SPECIALIST Work Phone: [facility] [employer] [facility] 08-15-2023 13:33-0500 Body mass index (BMI) [Ratio] 36.77 kg/m2 Gregoriacortney Ralph [employer]HEARING SPECIALIST Work Phone: [facility] [employer] [facility] 08-15-2023 13:33-0500 Body weight 112.95 kg Gregoriacortney Ralph [employer]HEARING SPECIALIST Work Phone: [facility] [employer] 08-15-2023 13:33-0500 Heart rate 81 /min Gregoriacortney Ralph [employer]HEARING SPECIALIST [facility] 08-15-2023 13:33-0500 SaO2% (BldA) [Mass fraction] 95 % Gregoriacortney Ralph [employer] P[employer]HEARING SPECIALIST Work Phone: [facility] [employer] 07-30-2023 11:16-0500 Body height 177.8 cm Ashli Petznick DO Work Phone: [facility] 07-30-2023 11:16-0500 Body mass index (BMI) [Ratio] 36.16 kg/m2 Ashli Petznick DO Work Phone: [facility] [address] 07-30-2023 11:16-0500 Body temperature 98.01 [degF] Ashli Petznick DO Work Phone: [facility] [address] 07-30-2023 11:16-0500 Body weight 114.31 kg Ashli Petznick DO Work Phone: [facility] [address] 07-30-2023 11:16-0500 Diastolic blood pressure 62 mm[Hg] Ashli Petznick DO Work Phone: [facility] 07-30-2023 11:16-0500 Heart rate 66 /min Ashli Petznick DO Work Phone: [facility] 07-30-2023 11:16-0500 SaO2% (BldA) [Mass fraction] 97 % Ashli Petznick DO Work Phone: [facility] 07-30-2023 11:16-0500 Systolic blood pressure 116 mm[Hg] Ashli Petznick DO Work Phone: [facility] 07-17-2023 09:22-0500 Diastolic blood pressure 73 mm[Hg] MD Dank Campo Work Phone: [facility] 07-17-2023 09:22-0500 Heart rate 70 /min MD Dank Campo Work Phone: [facility] 07-17-2023 09:22-0500 Respiratory rate 18 /min MD Dank Campo Work Phone: [facility] 07-17-2023 09:22-0500 SaO2% (BldA) [Mass fraction] 97 % MD Dank Campo Work Phone: [facility] 07-17-2023 09:22-0500 Systolic blood pressure 173 mm[Hg] MD Dank Campo Work Phone: [facility] 07-17-2023 09:20-0500 Body height 177.8 cm MD Dank Campo Work Phone: [facility] 07-17-2023 09:20-0500 Body weight 111.13 kg MD Dank Campo Work Phone: [facility] 04-27-2023 12:40-0500 Diastolic blood pressure 68 mm[Hg] MD Dank Campo Work Phone: [facility] 04-27-2023 12:40-0500 Heart rate 75 /min MD Dank Campo Work Phone: [facility] 04-27-2023 12:40-0500 Respiratory rate 16 /min MD Dank Campo Work Phone: [facility] 04-27-2023 12:40-0500 SaO2% (BldA) [Mass fraction] 97 % MD Dank Campo Work Phone: [facility] 04-27-2023 12:40-0500 Systolic blood pressure 110 mm[Hg] MD Dank Campo Work Phone: [facility] 04-27-2023 10:29-0500 Body height 177.8 cm MD Dank Campo Work Phone: [facility] 04-27-2023 10:29-0500 Body weight 113.39 kg MD Dank Campo Work Phone: [facility] 04-10-2023 14:00-0400 Body height 177.8 cm Imad Asaad Other [facility] [employer] Other 04-10-2023 14:00-0400 Body mass index (BMI) [Ratio] 36.3 kg/m2 Imad Asaad Other [employer] Other 04-10-2023 14:00-0400 Body weight 114.76 kg Imad Asaad Other [employer] Other 04-10-2023 14:00-0400 Diastolic blood pressure 68 mm[Hg] Imad Asaad Other [employer] Other 04-10-2023 14:00-0400 Systolic blood pressure 113 mm[Hg] Imad Asaad Other [employer] Other 02-12-2023 09:46-0400 Blood Pressure Location Peterson NICOLA [facility] 02-12-2023 09:46-0400 Diastolic blood pressure 90 mm[Hg] Peterson PETERSEN [facility] 02-12-2023 09:46-0400 Heart rate 68 /min Peterson PETERSEN [facility] 02-12-2023 09:46-0400 Respiratory rate 16 /min Peterson PETERSEN [facility] 02-12-2023 09:46-0400 Systolic blood pressure 138 mm[Hg] Peterson PETERSEN [facility] 07-24-2022 13:52-0500 Diastolic blood pressure 78 mm[Hg] MD Dank Campo Work Phone: [facility] 07-24-2022 13:52-0500 Heart rate 71 /min MD Dank Campo Work Phone: [facility] 07-24-2022 13:52-0500 Respiratory rate 16 /min MD Dank Campo Work Phone: [facility] 07-24-2022 13:52-0500 SaO2% (BldA) [Mass fraction] 96 % MD Dank Campo Work Phone: [facility] 07-24-2022 13:52-0500 Systolic blood pressure 136 mm[Hg] MD Dank Campo Work Phone: [facility] 07-24-2022 12:29-0500 Body height 177.8 cm MD Dank Campo Work Phone: [facility] 07-24-2022 12:29-0500 Body temperature 98 [degF] MD Dank Campo Work Phone: [facility] 07-24-2022 12:29-0500 Body weight 115.66 kg MD Dank Campo Work Phone: [facility] 07-20-2022 10:00-0500 Body height 177.8 cm Imad Asaad Other [employer] Other 07-20-2022 10:00-0500 Body mass index (BMI) [Ratio] 36.73 kg/m2 Imad Asaad Other [employer] Other 07-20-2022 10:00-0500 Body weight 116.12 kg Imad Asaad Other [employer] Other 07-20-2022 10:00-0500 Diastolic blood pressure 96 mm[Hg] Imad Asaad Other [employer] Other 07-20-2022 10:00-0500 Systolic blood pressure 170 mm[Hg] Imad Asaad Other [employer] Other 02-03-2022 08:29-0400 Blood Pressure Location Peterson PETERSEN [facility] 02-03-2022 08:29-0400 Diastolic blood pressure 88 mm[Hg] Peterson PETERSEN [facility] 02-03-2022 08:29-0400 Heart rate 75 /min Peterson PETERSEN [facility] 02-03-2022 08:29-0400 Respiratory rate 16 /min Peterson PETERSEN [facility] 02-03-2022 08:29-0400 Systolic blood pressure 138 mm[Hg] Peterson PETESREN [facility] Encounters Encounter Date Encounter Type Care Provider Facility Start: 02-09-2025 ambulatory Peterson PETERSEN Facili ty:[facility] Start: 04-08-2024 End: 04-08-2024 Bamboo flowsheet Rbeecca FREY Work Phone: [facility] Start: 04-08-2024 End: 04-08-2024 Bamboo flowsheet Rebecca FREY Work Phone: [facility] Start: 04-08-2024 End: 04-08-2024 Patient encounter procedure Rebecca FREY Work Phone: [facility] Comment on above: Pre-op examination ( Primary Dx); Preop examination Start: 04-08-2024 End: 04-08-2024 Preprocedural examination done Rebecca FREY Work Phone: [facility] Work Phone: Start: 03-24-2024 End: 03-25-2024 Luul Holden NP Work Phone: [facility] Comment on above: Internal derangement of left shoulder (Primary Dx) Start: 03-18-2024 End: 03-18-2024 Bamboo flowsheet Rebecca FREY Work Phone: [facility] Start: 03-18-2024 End: 03-18-2024 Bamboo flowsheet Rebecca FREY Work Phone: [facility] Start: 03-18-2024 End: 03-18-2024 External Result Encounter Rebecca FREY Work Phone: [facility] Unsolicited Start: 03-18-2024 End: 03-18-2024 Orders Only Rebecca FREY Work Phone: [facility] Comment on above: Encounter for other preprocedural examination Start: 03-18-2024 End: 03-18-2024 Patient encounter status Rebecca FREY Work Phone: [facility] Start: 03-18-2024 End: 03-18-2024 Telephone encounter Rebecca FREY Work Phone: [facility] Start: 03-18-2024 Encounter for other preprocedural examination GREGORIA RALPH [facility] Start: 03-18-2024 End: 03-18-2024 Patient encounter procedure Rebecca FREY Work Phone: [facility] Comment on above: Preop examination (P rimary Dx) Start: 03-18-2024 End: 03-18-2024 Preprocedural examination done Rebecca FREY Work Phone: [facility] Start: 03-18-2024 End: 03-18-2024 ambulatory REBECCA DIAS Not Available Start: 03-17-2024 End: 03-17-2024 ambulatory [facility] Work Phone: Start: 03-17-2024 End: 03-17-2024 Patient encounter procedure [facility] Work Phone: Start: 03-12-2024 End: 03-12-2024 ambulatory [facility] Start: 03-10-2024 End: 03-10-2024 ambulatory Roma Lopez MD Facility:[facility] Start: 03-03-2024 End: 03-03-2024 ambulatory JOHANNE MURILLO Not Available Start: 02-25-2024 End: 02-25-2024 ambulatory [facility] Start: 02-04-2024 End: 02-04-2024 ambulatory Peterson PETERSEN Facility:[facility] Start: 02-04-2024 End: 02-04-2024 Patient encounter procedure Peterson PETERSEN [facility] Start: 01-31-2024 End: 01-31-2024 ambulatory ASHLI ROSS Not Available Start: 01-28-2024 End: 01-28-2024 ambulatory Peterson PETERSEN Facility:[facility] Start: 01-28-2024 End: 01-28-2024 Patient encounter procedure Peterson R NICOLA [facility] Start: 12-13-2023 End: 12-15-2023 [facility] Start: 12-05-2023 End: 12-05-2023 ambulatory DANK CAMPO Not Available Start: 11-22-2023 End: 11-22-2023 ambulatory DEXTER KRISHNAMURTHY Not Available Start: 11-14-2023 End: 11-14-2023 ambulatory DANK CAMPO Not Available Start: 11-05-2023 End: 11-05-2023 ambulatory Roma Lopez MD Facility: [facility] Start: 10-31-2023 End: 10-31-2023 ambulatory DEXTER KRISHNAMURTHY Not Available Start: 10-30-2023 End: 10-30-2023 ambulatory Dank Campo Facility:[facility] Start: 10-30-2023 End: 10-30-2023 ambulatory ASHLI ROSS Not Available Start: 10-17-2023 End: 10-17-2023 ambulatory DEXTER A RUSHER Not Available Start: 10-15-2023 End: 10-15-2023 ambulatory Roma Lopez MD Facility: [facility] Start: 10-11-2023 End: 10-11-2023 ambulatory DANK CAMPO Not Available Start: 10-09-2023 End: 10-09-2023 ambulatory JYOTI ROTH Not Available Start: 10-01-2023 End: 10-01-2023 ambulatory Roma Lopez MD Facility:[facility] Start: 09-27-2023 End: 09-27-2023 ambulatory DEXTER KRISHNAMURTHY Not Available Start: 09-05-2023 End: 09-05-2023 ambulatory DEXTER KRISHNAMURTHY Not Available Start: 08-29-2023 End: 08-29-2023 ambulatory DANK CAMPO Not Available Start: 08-27-2023 Telephone encounter [facility] Start: 08-23-2023 End: 08-23-2023 ambulatory [facility] Start: 08-22-2023 End: 08-23-2023 ambulatory Dank Campo Facility:[facility] Start: 08-20-2023 End: 08-20-2023 ambulatory Dank Webstergraciela Facility:[facility] Start: 08-17-2023 Telephone encounter Gregoria shields [employer] SPECIALIST Work Phone: [facility] Comment on above: Sleep Lab (CPAP) Start: 08-15-2023 End: 08-15-2023 Office outpatient visit 25 minutes Gregoria Ralph [employer]HEARING SPECIALIST Work Phone: [facility] Comment on above: Personal history of tobacco use, presenting hazards to health (Primary Dx); Obstructive sleep apnea syndrome; CSA (central sleep apnea) Start: 08-15-2023 End: 08-15-2023 ambulatory [facility] Start: 08-09-2023 End: 08-09-2023 Patient encounter procedure MD Dank Campo Work Phone: [facility] Work Phone: Start: 08-09-2023 End: 08-09-2023 ambulatory MD Dank Campo Work Phone: [facility] Work Phone: Start: 08-09-2023 End: 08-09-2023 ambulatory DEXTER KRISHNAMURTHY Not Available Start: 08-02-2023 Telephone encounter Aliza [facility] Start: 08-01-2023 Chart abstracting Jr. Johanne Hdez DO Work Phone: [facility] Start: 08-01-2023 End: 08-01-2023 ambulatory JOHANNE MURILLO Not Available Start: 07-30-2023 End: 07-30-2023 Office outpatient visit 25 minutes Ashli Sonia Ross DO Work Phone: [facility] Comment on above: Class 2 severe obesi ty due to excess calories with serious comorbidity and body mass index (BMI) of 36.0 to 36.9 in adult ([facility]) (Primary Dx); Type 2 diabetes mellitus with diabetic polyneuropathy, with long-term current use of insulin ([facility]) Start: 07-30-2023 End: 07-30-2023 ambulatory ASHLI M CODY Not Available Start: 07-24-2023 End: 07-24-2023 Patient encounter procedure MD Dank Campo Work Phone: [facility] [place] Work Phone: Start: 07-24-2023 End: 07-24-2023 ambulatory Edd Holden Facility:[facility] Start: 07-17-2023 End: 07-17-2023 Patient encounter procedure MD Dank Campo Work Phone: [facility] [place] Work Phone: Start: 07-17-2023 End: 07-17-2023 ambulatory MD Dank Campo Work Phone: [facility] Work Phone: Start: 06-26-2023 End: 06-26-2023 ambulatory MD Dank Campo Work Phone: [facility] Work Phone: Start: 06-26-2023 End: 06-26-2023 Patient encounter procedure MD Dank Campo Work Phone: [facility] [address] Work Phone: Start: 06-07-2023 End: 06-07-2023 ambulatory DANK CAMPO Not Available Start: 05-14-2023 End: 05-14-2023 ambulatory EDD HOLDEN Not Available Start: 05-09-2023 End: 05-09-2023 ambulatory DEXTER KRISHNAMURTHY Not Available Start: 05-04-2023 End: 05-04-2023 ambulatory ASHLI ROSS Not Available Start: 05-02-2023 End: 05-02-2023 ambulatory DEXTER KRISHNAMURTHY Not Available Start: 04-30-2023 End: 04-30-2023 ambulatory EDD HOLDEN Not Available Start: 04-27-2023 End: 04-27-2023 Admission to same day surgery center MD Dank Campo Work Phone: [facility] Work Phone: Start: 04-27-2023 End: 04-27-2023 ambulatory MD Dank Campo Work Phone: [facility] Work Phone: Start: 04-10-2023 End: 04-10-2023 ambulatory Imad Asaad Other [employer] Other Start: 04-10-2023 Office outpatient ne w 45 minutes Imad Asaad [facility] Start: 03-20-2023 End: 03-20-2023 ambulatory Imad Asaad Other [employer] Other Start: 03-20-2023 Telephone encounter Imad Asaad [facility] Start: 02-12-2023 End: 02-12-2023 ambulatory Peterson PETERSEN Facility:[facility] Start: 02-12-2023 End: 02-12-2023 Patient encounter procedure Peterson PETERSEN [facility] Start: 02-06-2023 End: 02-06-2023 Lab Drop off ROSALVA MURO [facility] Start: 02-06-2023 End: 02-06-2023 ambulatory ROSALVA MURO [facility] Start: 02-06-2023 End: 02-06-2023 Patient encounter procedure DEJUAN PETERSEN [facility] Start: 10-17-2022 End: 10-18-[address] DANK CAMPO Facility:[facility] Start: 09-20-2022 End: 09-20-2022 ambulatory Imad Asaad Other [employer] Other Start: 09-20-2022 Telephone encounter Imad Asaad [facility] Start: 09-14-2022 End: 09-14-[address] DANK CAMPO Facility:[facility] Start: 09-12-2022 End: 09-13-[address] DANK CAMPO Facility:[facility] Start: 07-24-2022 Telephone encounter Imad Asaad [facility] Start: 07-24-2022 End: 07-24-2022 Admission to same day surgery center MD Dank Campo Work Phone: [facility] Work Phone: Start: 07-24-2022 End: 07-24-2022 ambulatory MD Dank Campo Work Phone: [facility] Work Phone: Start: 07-20-2022 End: 07-20-2022 ambulatory Imad Asaad Other [employer] Other Start: 07-20-2022 Patient encounter procedure Imad Asaad [facility] Start: 05-10-2022 End: 05-11-[address] DANK CAMPO Facility:[facility] Start: 04-14-2022 End: 04-15-[address] SORIN SHORE Facility:[facility] Start: 02-03-2022 End: 02-03-2022 Patient encounter procedure Peterson PETERSEN [facility] Start: 01-30-2022 End: 01-31-2022 ambulatory MR REBECCA DIAS . Facility:[facility] Start: 01-27-2022 End: 01-28-[address] PETERSON PETERSEN . Facility:[facility] Procedures Date Procedure Procedure Detail Performing Clinician Start: 03-18-2024 Complete blood count with white cell differential, automated Rebecca FREY Work Phone: Start: 02-25-2024 Follow-up visit Follow-up HANNA BUTCHER Start: 07-30-2023 Hemoglobin glycosylated a1c Ashli green DO Work Phone: Start: 07-24-2023 CT of left shoulder with contrast MD Reina Campo Work Phone: Start: 04-27-2023 End: 04-27-2023 Colonoscopy MD Dank Campo Work Phone: Start: 07-24-2022 Esophagogastroduodenoscopy MD Dank caballero Work Phone: Start: 03-18-2021 Laparoscopic cholecystectomy Peterson GOODE Start: 02-11-2020 Colonoscopy Rebecca FREY Work Phone: Start: 01-16-2020 Radiation (physical force) Peterson Finn [...] 04-27-2033 Screening for malignant neoplasm of colon [facility] Start: 01-20-2031 DTaP,Tdap and Td Vaccines (3 - Td or Tdap) DTaP,Tdap and Td Vaccines (3 - Td or Tdap) [facility] Start: 02-10-2030 Screening for malignant neoplasm of colon [facility] Start: 08-27-2025 Glaucoma screening Diabetes: Retinopathy Screening [facility] Start: 02-24-2025 Adult BMI Screening Adult BMI Screening [facility] Start: 02-24-2025 Tobacco Screening Tobacco Screening [facility] Start: 09-03-2024 Urine screening for protein Diabetes: Urine Protein Screening [facility] Start: 08-15-2024 Adult BMI Screening Adult BMI Screening [facility] Start: 08-15-2024 Tobacco Screening Tobacco Screening [facility] Start: 07-14-2024 End: 07-14-2024 Patient encounter procedure 07/14/2024 2:00 PM EST Office Visit [facility] [address] [place] [address] Hanna Butcher MD [address] [facility] [facility] [place] [address] [facility] Start: 05-28-2024 End: 05-28-2024 Patient encounter procedure 05/28/2024 7:30 AM EST Office Visit [facility] [address] [place] [id number] Dank Cmapo MD [address] [place] [id number] [facility] Start: 05-09-2024 End: 05-09-2024 Patient encounter procedure 05/09/2024 9:00 AM EST Office Visit [facility] [address] [place] [address] Rebecca Dias PA [address] [facility] [address] [place] [address] [facility] Start: 05-02-2024 Hemoglobin A1c measurement Diabetes: Hemoglobin A1C [facility] Start: 04-29-2024 End: 04-29-2024 Patient encounter procedure 04/29/2024 10:45 AM EST Office Visit [facility] [address] [place] [address] Ashli Ross DO [address] [facility] [address] [place] [address] [facility] Start: 04-08-2024 End: 04-08-[address] [facility] Comment on above: Pre-op examination (Primary Dx) Start: 03-25-2024 End: 03-25-2024 Patient encounter procedure 03/25/2024 1:30 PM EDT Procedure Visit [facility] Jr. Johanne Hdez DO [address] [facility] [address] [place] [address] [facility] Start: 03-18-2024 End: 03-13-2025 Basic metabolic 1998 panel - Serum or Plasma Basic metabolic panel Lab Routine Preop examination Expected: 03/18/2024 (Approximate), Expires: 03/13/2025 [facility] Work Phone: Comment on above: Expected: 03/18/2024 (Approximate), Expi res: 03/13/2025 Start: 03-18-2024 End: 03-18-2025 CBC W Auto Differential panel - Blood [facility] Work Phone: Comment on above: Expected: 03/18/2024, Expires: Expected: 03/18/2024 (Approximate), Expires: 03/13/2025 Start: 03-18-2024 End: 09-26-2025 Prothrombin time (PT) in Blood by Coagulation assay Protime-INR Lab Routine Preop examination Expected: 03/18/2024 (Approximate), Expires: 03/13/2025 [facility] Comment on above: Expected: 03/18/2024 (Approximate), Expi res: 03/13/2025 Start: 03-18-2024 End: 03-18-2025 Protime & INR Protime & INR Lab Routine Encounter for other preprocedural examination Expected: 03/18/2024, Expires: 03[facility]18[facility]25 [facility] Comment on above: Expected: 03/18/2024, Expires: Start: 03-18-2024 Subsequent hospital visit by physician 03/18/2024 9:07 AM EDT Hospital Encounter [facility] [address] [place] [id number] Arrived [facility] Comment on above: Arrived Start: 03-18-2024 End: 03-18-2024 Patient encounter procedure [facility] Comment on above: Preop examination Start: 02-25-2024 End: 02-25-2024 Patient encounter procedure 02/25/2024 10:30 AM EDT [facility] [address] [place] [phone] Hanna Butcher MD [address] [facility] [address] [place] [address] [facility] [facility] Start: 02-17-2024 COVID-19 Vaccine ( season) COVID-19 Vaccine () [facility] Start: 11-19-2023 End: 11-19-2023 Clinical Support 11/19/2023 8:00 PM EDT Clinical Support [facility] [address] [place] [phone] [facility] Start: 10-29-2023 End: 10-29-2023 Patient encounter procedure 10/29/2023 1:15 PM EDT Office Visit [facility] [address] [place] [phone] Ashli Ross DO [address] [place] [address] [facility] [address] Start: 10-28-2023 Hemoglobin A1c measurement Diabetes: Hemoglobin A1C [facility] Start: 08-29-2023 End: 08-29-2023 Patient encounter procedure 08/29/2023 7:45 AM EDT [facility] [address] [place] [phone] Dank Campo MD [address] [place] [phone] [facility] Start: 08-23-2023 End: 08-23-2023 Patient encounter procedure [facility] Start: 08-15-2023 End: 08-15-2024 CT Chest for screening WO contrast CT low dose lung screenin (3mo 6mo follow-up) Imaging Routine Personal history of tobacco use, presenting hazards to health Expected: 08/15/2023, Expires: 08/15/2024 Itaro Work Phone: Comment on above: Expected: 08/15/2023, Expires: Start: 08-15-2023 End: 08-15-2024 Echo complete W/O contrast Echo complete W/O contrast Echocardiography Routine Obstructive sleep apnea syndrome CSA (central sleep apnea) Expected: 08/15/2023, Expires: 08/15/2024 [facility] Comment on above: Expected: 08/15/2023, Expires: Start: 08-09-2023 End: 08-09-2023 Patient encounter procedure 08/09/2023 8:30 AM EST Office Visit [facility] [phone] Dexter Krishnamurthy, DPM [address] [place], [place] [phone] [facility] Start: 08-01-2023 End: 08-01-2023 Patient encounter procedure 08/01/2023 10:30 AM EST Office [address] [facility] [address] [place] [phone] Jr. Johanne Hdez, DO [address] [place] [address] [facility] Start: 04-27-2023 [facility] Start: 04-11-2023 Administration of varicella zoster vaccine Zoster (Shingles) Vaccine (3 of 3) [facility] Start: 02-16-2023 COVID-19 Vaccine ( season) COVID-19 Vaccine ( season) [facility] Start: 02-16-2023 COVID-19 Vaccine ( season) COVID-19 Vaccine ( season) [facility] Start: 02-16-2023 Influenza vaccination Influenza Vaccine [facility] Start: 07-24-2022 [facility] Start: 04-15-2022 Adult BMI Screening Adult BMI Screening [facility] Start: 09-15-2020 Abdominal aortic aneurysm screening Abdominal Aortic Aneurysm (AAA) Screen [facility] Start: 09-15-2020 Fall Risk Screening Fall Risk Screening [facility] Start: 09-15-1974 Urine screening for protein Diabetes: Urine Protein Screening [facility] Start: 09-15-1973 Adult BMI Follow Up Plan Adult BMI Follow Up Plan [facility] Start: 1967 Depression Screening Depression Screening [facility] Start: 1967 Tobacco Screening Tobacco Screening [facility] Start: 09-15-1965 Glaucoma screening Diabetes: Retinopathy Screening [facility] Start: 1955 Medicare Annual Wellness (AWV) Medicare Annual Wellness (AWV) [facility] Healthcare Start: 1955 Medicare Annual Wellness Visit Medicare Annual Wellness Visit [facility] Start: 1955 Screening for malignant neoplasm of colon [facility] Patient Education [facility] Work Phone: End: 08-15-2024 Polysomnography 4 or more parameters with PAP titration Polysomnography 4 or more parameters with PAP titration Sleep Center Routine Obstructive sleep apnea syndrome CSA (central sleep apnea) 1 Occurrences starting 08/15/2023 until 08/15/2024 [facility] Comment on above: 1 Occurrences starting 08/15/2023 until 08/15/2024 Immunizations Immunization Date Immunization Notes Care Provider [facility] 04-22-2023 zoster vaccine recombinant Ashli Petznick DO Work Phone: [facility] 03-23-2023 RSV, recombinant, protein subunit RSVpreF, adjuvant reconstitu, 120mcg/0.5mL, PF (Arexvy) Ashli Petznick DO Work Phone: [facility] 02-14-2023 Influenza, Seasonal, Quadrivalent, Adjuvanted Ashli Petznick DO Work Phone: [facility] 02-14-2023 zoster vaccine recombinant Ashli Petznick DO Work Phone: [facility] 02-14-2023 influenza virus vaccine, unspecified formulation Aliza Jw [facility] 02-14-2023 zoster vaccine, unspecified formulation [facility] 04-09-2022 COVID-19 mRNA Bivale nt Booster (Pfizer) MD Dank Campo Work Phone: [facility] 04-09-2022 influenza virus vaccine, unspecified formulation Peterson PETERSEN [facility] 04-09-2022 Influenza, Seasonal, Quadrivalent, Adjuvanted Ashli Petznick DO Work Phone: [facility] 04-13-2021 COVID-19 mRNA, Comirnaty (Pfizer) MD Dank Campo Work Phone: [facility] 02-22-2021 influenza virus vaccine, unspecified formulation Peterson PETERSEN [facility] 02-22-2021 Influenza, Seasonal, Quadrivalent, Adjuvanted Ashli Petznick DO Work Phone: [facility] 02-22-2021 pneumococcal polysaccharide vaccine, 23 valent Ashli Ross DO Work Phone: [facility] 02-16-2021 pneumococcal conjuga te vaccine, 13 valent Peterson PETERSEN [facility] 01-20-2021 tetanus and diphther ia toxoids, adsorbed, preservative free, for adult use (5 Lf of tetanus toxoid and 2 Lf of diphtheria toxoid) Imad [employer] Other [employer] Other 01-20-2021 tetanus and diphther ia toxoids, adsorbed, preservative free, for adult use (2 Lf of tetanus toxoid and 2 Lf of diphtheria toxoid) Petersonpercy PETERSEN [facility] 01-17-2021 influenza virus vaccine, unspecified formulation Peterson PETERSEN [facility] 01-17-2021 influenza, seasonal, injectable Ashli Petca DO Work Phone: [facility] 01-17-2021 Moderna SARS-CoV-2 Vaccination Ashli Petznmallory DO Work Phone: [facility] 10-16-2020 SARS-CoV-2 (COVID-19 ) mRNA BNT-162b2 vax Peterson PETERSEN [facility] 10-01-2020 COVID-19 mRNAAlfred (Pfizer) MD Dank Campo Work Phone: [facility] 09-08-2020 COVID-Alfred Bacon (Pfizer) MD Dank Campo Work Phone: [facility] 02-17-2020 influenza virus vaccine, unspecified formulation [employer] [facility] 02-17-2020 influenza, injectabl e, quadrivalent, preservative free Ashli Petznick DO Work Phone: [facility] 02-09-2020 influenza, high dose seasonal, preservative-free Ashli Petznick DO Work Phone: [facility] 03-15-2019 influenza virus vaccine, unspecified formulation [employer] [facility] 03-15-2019 influenza, injectabl e, quadrivalent, preservative free Ashli Petznick DO Work Phone: [facility] 02-25-2018 influenza virus vaccine, unspecified formulation [employer] [facility] 02-25-2018 influenza, injectabl e, quadrivalent, preservative free Ashli Petznick DO Work Phone: [facility] 05-30-2017 pneumococcal conjuga te vaccine, 13 valent Ashli Petznick DO Work Phone: [facility] 05-30-2017 pneumococcal polysaccharide vaccine, 23 valent Ashli Petznick DO Work Phone: [facility] 03-02-2017 influenza nasal, unspecified formulation Ashli Petznick DO Work Phone: [facility] 03-02-2017 influenza virus vaccine, unspecified formulation [facility] 03-02-2017 influenza, injectabl e, quadrivalent, preservative free Ashli Petznick DO Work Phone: [facility] 03-05-2016 influenza virus vaccine, unspecified formulation Peterson PETERSEN [facility] 03-05-2016 influenza, injectabl e, quadrivalent, preservative free Ashli Petznick DO Work Phone: [facility] 03-05-2016 influenza, seasonal, injectable Ashli Petznick DO Work Phone: [facility] 02-18-2015 zoster vaccine, live Ashli Petznick DO Work Phone: [facility] 02-01-2015 influenza virus vaccine, unspecified formulation Peterson PETERSEN [facility] 02-01-2015 influenza, seasonal, injectable Ashli Petznick DO Work Phone: [facility] 08-18-2014 tetanus toxoid, redu inocencio diphtheria toxoid, and acellular pertussis vaccine, adsorbed Ashli Petznick DO Work Phone: [facility] 08-04-2013 pneumococcal conjuga te vaccine, 13 valent Ashli Petznick DO Work Phone: [facility] Payers Date Payer Category Payer Self-pay [id number] 2023 Unknown [id number] 2021 Medicare (Managed Care) [facility] [id number] 2020 Medicare [id number]. 1.13.693. [id number] 2013 Unknown [id number]. 1.13.424. 2.7.3.171430.315 1959 Medicare [id number] 1955 Unknown [id number] 2.16.840.1.529438.3.579. 2.593 1955 Unknown [id number] 2.16.840.1.003357.3.579. 2.593 1955 Unknown [id number] 2.16.840.1.046204.3.579. 2.593 1955 Unknown [id number] 2.16.840.1.578227.3.579. 2.593 1955 Unknown [id number] 2.16.840.1.323202.3.579. 2.593 1955 Unknown [id number] 2.16.840.1.255025.3.579. 2.593 1955 Unknown [id number] 2.16.840.1.511506.3.579. 2.593 1955 Unknown [id number] 2.16.840.1.530627.3.579. 2.593 1955 Unknown [id number] 2.16.840.1.832807.3.579. 2.1286 1955 Unknown [id number] 2.16.840.1.643319.3.579. 2.727 1955 Unknown [id number] 2.16.840.1.391390.3.579. 2.727 1955 Unknown [id number] 2.16.840.1.908310.3.579. 2.727 1955 Unknown [id number] 2.16.840.1.311798.3.579. 2.727 1955 Unknown [id number] 2.16.840.1.599857.3.579. 2.727 1955 Unknown [id number] 2.16.840.1.852496.3.579. 2.727 1955 Unknown [id number] 2.16.840.1.256266.3.579. 2.1286 1955 Unknown [id number] 2.16.840.1.592275.3.579. 2.1286 1955 Unknown [id number] 2.16.840.1.922030.3.579. 2.196 1955 Unknown [id number] 2.16.840.1.148983.3.579. 2.196 1955 Unknown [id number] 2.16.840.1.069690.3.579. 2.196 1955 Unknown [id number] 2.16.840.1.848911.3.579. 2.196 1955 Unknown [id number] 2.16.840.1.064716.3.579. 2.1259 1955 Unknown [id number] 2.16.840.1.466730.3.579. 2.1259 1955 Unknown [id number] 2.16.840.1.958192.3.579. 2.1259 1955 Unknown [id number] 2.16.840.1.366597.3.579. 2.1259 1955 Unknown [id number] 2.16.840.1.706061.3.579. 2.1259 1955 Unknown [id number] 2.16.840.1.808318.3.579. 2.125 1955 Unknown [id number] 2.16.840.1.452321.3.579. 2.125 1955 Unknown [id number] 2.16.840.1.540031.3.579. 2.1259 1955 Unknown [id number] 2.16.840.1.240691.3.579. 2.1259 1955 Unknown [id number] 2.16.840.1.708690.3.579. 2.1258 1955 Unknown [id number] 2.16.840.1.014880.3.579. 2.1258 1955 Unknown [id number] 2.16.840.1.360211.3.579. 2.1258 1955 Unknown [id number] 2.16.840.1.237010.3.579. 2.1258 1955 Unknown [id number] 2.16.840.1.586402.3.579. 2.1258 1955 Unknown [id number] 2.16.840.1.853341.3.579. 2.1258 1955 Unknown [id number] 2.16.840.1.654478.3.579. 2.1258 1955 Unknown [id number] 2.16.840.1.972136.3.579. 2.1258 1955 Unknown [id number] 2.16.840.1.115988.3.579. 2.1258 1955 Unknown [id number] 2.16.840.1.728408.3.579. 2.1258 1955 Unknown [id number] 2.16.840.1.843063.3.579. 2.1258 1955 Unknown [id number] 2.16.840.1.012823.3.579. 2.1258 1955 Unknown [id number] 2.16.840.1.967649.3.579. 2.1258 1955 Unknown [id number] 2.16.840.1.827340.3.579. 2.1258 1955 Unknown [id number] 2.16.840.1.735072.3.579. 2.1258 1955 Unknown [id number] 2.16.840.1.258343.3.579. 2.1259 1955 Unknown [id number] 2.16.840.1.233727.3.579. 2.1286 1955 Unknown [id number] 2.16.840.1.989078.3.579. 2.1286 1955 Unknown [id number] 2.16.840.1.610946.3.579. 2.1286 1955 Unknown [id number] 2.16840.1.119373.3.579. 2.1286 Medicare Medicare [id number] Unknown [place]/ [id number] Unknown Regular Insurance [id number] Unknown [id number] 2.840.1.901066.3.579. 2.531 Unknown [id number] 2.840.1.308450.3.579. 2.531 Unknown [id number] 2.840.1.386642.3.579. 2.531 Unknown [id number] 2.840.1.805845.3.579. 2.531 Unknown [id number] 2.840.1.176043.3.579. 2.531 Unknown [id number] 2.840.1.808988.3.579. 2.531 Unknown [id number] 2.840.1.043751.3.579. 2.531 Worker's Compensation [employer] [id number] Worker's Compensation [id number] Social History Date Type Detail Facility Start: 02-03-2022 End: 03-18-2024 Ex-smoker (finding) [facility] Start: 01-09-2023 End: 01-16-2023 Male [facility] Start: 1955 Sex Assigned At Male F [facility] Start: 06-18-1974 End: 2021 History of tobacco use Current smoker [facility] Start: 06-18-1974 End: 2021 History of tobacco use Cigarette Smoker [facility] Start: 12-11-2022 End: 01-09-2023 Cigarettes smoked current (pack per day) - Reported 1.5 [facility] Start: 12-11-2022 End: 03-18-2024 Tobacco use and exposure Smokeless tobacco non-user [facility] Start: 07-30-2023 End: 04-08-2024 Alcohol intake Ex-drinker (finding) [facility] Within the last year , have you been afraid of your partner or ex-partner? No [facility] Do you belong to any clubs or organizations such as zoroastrianism groups, unions, fraternal or athletic groups, or [...] [facility] Start: 12-22-2020 [facility] Start: 04-15-2021 End: 02-25-2024 Alcohol intake Current non-drinker of alcohol (finding) [facility] Medical Equipment Procedure Code Equipment Code Equipment Origin al Text Equipment Identifier Dates EGD (esophagogastroduod enoscopy) Video capsule endoscopy system [id number])[id number] -DDC-B FDA Start: 08-18-2020 [id number] Start: 09-19-2022 use to test BLOO D SUGAR THREE TIMES DAILY [id number] Start: 09-19-2022 use to test BLOO D SUGAR THREE TIMES DAILY [id number] Start: 11-01-2022 Swivelock 4.75 - Sna - [id number] Start: 12-10-2017 Incv/Swivelock 4.75 Use [id number] - Sna - [id number] Start: 07-19-2020 USE DIRECTED FOUR TIMES DAILY [id number] Start: 02-21-2024 Fsbs bid [id number] Start: 12-17-2023 Goals Date Patient Goal Desired Activity /State Personal health goal Comment on above: Formatting of this n ote might be different from the original. Evaluation of progress towards goal: Home self care with childrens support Functional Status Date Assessment Result Facility 02-04-2024 Functional Status N/A [facility] 02-12-2023 Functional Status N/A [facility] 02-03-2022 N/A [facility] Clinical Notes 11-04-2020 to 04-08-2024 Rebecca Dias, TK - 04/08/2024 8:15 AM EDTTelephone Encounter - Jr. Johanne Hdez, - 03/25/2024 8:05 AM EDTTelephone Encounter - Jr. Johanne Hdez, - 03/25/2024 8:05 AM EDT Note Date & Type Note Facility 04-08-2024 History of Presen t illness Narrative Images from the original note were not included. GENERAL HISTORY AND PHYSICAL: NAME: Milad Seymour : 1955 HISTORY OF PRESENT ILLNESS: Milad Seymour is an 68 y.o. @ male. 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 Diabetes mellitus (CMS/HCC) ETD (Eustachian tube dysfunction), right Headache Hyperlipemia (CMS/HCC) Hyperlipidemia (CMS/HCC) Hypertension (CMS/HCC) Iron Infusions on going per [facility] , Low back pain Migraine (CMS/HCC) Otitis externa Prostate cancer (CMS/HCC) 2018 radiation PVC (premature ventricular contraction) Right shoulder pain Rotator cuff tear, right 2020 Sleep apnea PAST SURGICAL HISTORY: Past Surgical History: Procedure Laterality Date APPENDECTOMY 1970 CHOLECYSTECTOMY COLONOSCOPY COLONOSCOPY 2015 EGD GALLBLADDER SURGERY 03/2021 HEEL SPUR SURGERY Right 2011 [place] KNEE SURGERY x2 arthroscopy OTHER SURGICAL HISTORY 07/31/2017 RM and T-tube, Timmis OTHER SURGICAL HISTORY Right 07/2020 Right PCR ROTATOR CUFF REPAIR Bilateral [id number] Wendy Crowell ROTATOR CUFF REPAIR SHOULDER ARTHROSCOPY W/ SUBACROMIAL DECOMPRESSION AND DISTAL CLAVICLE EXCISION Right 12/10/2017 TONSILLECTOMY SOCIAL HISTORY: Social History Occupational History Not on file Tobacco Use Smoking status: Former Current packs/day: 1.50 Types: Cigarettes Smokeless tobacco: Never Tobacco comments: Last smoked: 3-6 months ago Heavy cigarette smoker (20-39 cigs/day) Vaping Use Vaping status: Never Used Substance and Sexual Activity Alcohol use: Not Currently Comment: Caffeine intake: none Drug use: Never Sexual activity: Not on file ALLERGIES: No Known Allergies MEDICATIONS: Current Outpatient Medications Medication Instructions aspirin (ASPIRIN) 81 mg, Oral, Daily celecoxib (CELEBREX) 200 mg, Oral, 2 times daily Continuous Blood Gluc Sensor (Dexcom G7 Sensor) misc 1 Device, Subcutaneous, See admin instructions, Change every 10 days cyclobenzaprine (FLEXERIL) 10 mg, Oral, 3 times daily Drug [place] Unijoel Pentips 31G X 5 MM misc USE DIRECTED FOUR TIMES DAILY fluorometholone (FML) 0.1 % ophthalmic suspension instill 1 (ONE) DROP IN BOTH EYES FOUR TIMES DAILY FOR 7 DAYS then instill 1 (ONE) DROP IN BOTH EYES TWICE DAILY FOR 7 DAYS FLUoxetine (PROZAC) 20 mg, Oral, Daily gabapentin (Neurontin) 100 MG capsule Oral glucose blood (LumavitaTouch Ultra) test strip Fsbs bid insulin lispro (HumaLOG) 100 UNIT/ML injection INJECT 5-10 UNITS BREAKFAST, 30 UNITS LUNCH/ DINNER PLUS CORRECTIONS OF 1:30 > 150MG/DL ( MAX 100 UNITS A DAY) Lancets (LumavitaTouch Delica Plus [id number]) misc use to test BLOOD SUGAR THREE TIMES DAILY lansoprazole (Prevacid) [address] capsule lansoprazole 30 mg capsule,delayed release Lantus SoloStar 60 Units, Subcutaneous, Nightly lisinopril 10 mg, Oral, 2 times daily magnesium oxide (MAG-OX) 400 mg, Oral, Daily metoprolol succinate XL (TOPROL-XL) 50 mg, Oral, Daily Ozempic (1 MG/DOSE) 1 mg, Subcutaneous, Weekly simvastatin (ZOCOR) 40 mg, Oral, Nightly REVIEW OF SYSTEMS: Review of Systems Constitutional: Negative for fatigue, fever and unexpected weight change. Eyes: Negative for redness and visual disturbance. Gastrointestinal: Negative for abdominal pain. Denies Indigestion Musculoskeletal: See note: Skin: Negative for color change and rash (History of Psoriasis). Neurological: Negative for light-headedness and numbness. Vitals: Body mass index is 35.73 kg/m . PHYSICAL EXAM: Physical Exam Constitutional: General: He is not in acute distress. Appearance: Normal appearance. HENT: Head: Normocephalic and atraumatic. Right Ear: External ear normal. Left Ear: External ear normal. Nose: Nose normal. No rhinorrhea. Mouth/Throat: Mouth: Mucous membranes are moist. Pharynx: No posterior oropharyngeal erythema. Eyes: Extraocular Movements: Extraocular movements intact. Conjunctiva/sclera: Conjunctivae normal. Cardiovascular: Rate and Rhythm: Normal rate and regular rhythm. Pulses: Normal pulses. Heart sounds: No murmur heard. Pulmonary: Effort: Pulmonary effort is normal. No respiratory distress. Breath sounds: Normal breath sounds. No wheezing or rhonchi. Abdominal: Palpations: Abdomen is soft. Tenderness: There is no abdominal tenderness. Musculoskeletal: Cervical back: Normal range of motion and neck supple. Lymphadenopathy: Cervical: No cervical adenopathy. Skin: General: Skin is warm and dry. Findings: No erythema or rash. Neurological: General: No focal deficit present. Mental Status: He is alert and oriented to person, place, and time. Psychiatric: Mood and Affect: Mood normal. Behavior: Behavior normal. No orders of the defined types were placed in this encounter. ASSESSMENT: ICD-10-CM 1. Pre-op examination Z01.818 2. Preop examination Z01.818 PLAN: This patient presents for preadmission testing for upcoming surgery. Complete history with medical, surgery, and current allergy and medication list obtained. Consent for surgery signed and witnessed after verbal consent to perform surgery received. All questions answered and proposed surgery scheduled. (L) SHOULDER SCOPE 04/25 @FOREIGN SX INSTRUCTIONS GIVEN TODAY 04/08 @8:15AM [facility] CAMPO CLEARANCE ; OBTAINED ULTRASLING GIVEN AT PRIOR APPT [facility] NOTIFIED PA APPROVED ([id number]) Follow up for 05/09 @9am w/tish in [place]. documented in this encounter [facility] 03-25-2024 Telephone encounter Note Case cancelled as he took aspirin and celebrex [facility] Work Phone: 03-25-2024 Miscellaneous Notes Case cancelled as he took aspirin and celebrex Post op pain rx. PDMP reviewed documented in this encounter [facility] 03-24-2024 Telephone encounter Note Post op pain rx. PDMP reviewed [facility] 03-18-2024 Telephone encounter Note Reviewed Pre-op labs.. Abdnormal renal function and potassium level. Labs in chart... Dr. Campo.. are you willing to address? [facility] Work Phone: 03-18-2024 Miscellaneous Notes Reviewed Pre-op labs.. Abdnormal renal function and potassium level. Labs in chart... Dr. Campo.. are you willing to address? documented in this encounter [facility] 03-18-2024 History of Presen t illness Narrative Images from the original note were not included. GENERAL HISTORY AND PHYSICAL: NAME: Milad Seymour : 1955 HISTORY OF PRESENT ILLNESS: Milad Seymour is an 68 y.o. @ male. 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 Diabetes mellitus (CMS/HCC) ETD (Eustachian tube dysfunction), right Headache Hyperlipemia (CMS/HCC) Hyperlipidemia (CMS/HCC) Hypertension (CMS/HCC) Iron Infusions on going per [facility] , Low back pain Migraine (CMS/HCC) Otitis externa Prostate cancer (CMS/HCC) 2018 radiation PVC (premature ventricular contraction) Right shoulder pain Rotator cuff tear, right 2020 Sleep apnea PAST SURGICAL HISTORY: Past Surgical History: Procedure Laterality Date APPENDECTOMY 1971 CHOLECYSTECTOMY COLONOSCOPY COLONOSCOPY 2016 EGD GALLBLADDER SURGERY 03/2021 HEEL SPUR SURGERY Right 2011 [place] KNEE SURGERY x2 arthroscopy OTHER SURGICAL HISTORY 07/31/2017 RM and T-tube, Timmis OTHER SURGICAL HISTORY Right 07/2020 Right PCR ROTATOR CUFF REPAIR Bilateral [id number] Wendy Crowell ROTATOR CUFF REPAIR SHOULDER ARTHROSCOPY W/ SUBACROMIAL DECOMPRESSION AND DISTAL CLAVICLE EXCISION Right 12/10/2017 TONSILLECTOMY SOCIAL HISTORY: Social History Occupational History Not on file Tobacco Use Smoking status: Former Current packs/day: 1.50 Types: Cigarettes Smokeless tobacco: Never Tobacco comments: Last smoked: 3-6 months ago Heavy cigarette smoker (20-39 cigs/day) Vaping Use Vaping status: Never Used Substance and Sexual Activity Alcohol use: Not Currently Comment: Caffeine intake: none Drug use: Never Sexual activity: Not on file ALLERGIES: No Known Allergies MEDICATIONS: Current Outpatient Medications Medication Instructions aspirin (ASPIRIN) 81 mg, Oral, Daily celecoxib (CELEBREX) 200 mg, Oral, 2 times daily Continuous Blood Gluc Sensor (Dexcom G7 Sensor) misc 1 Device, Subcutaneous, See admin instructions, Change every 10 days cyclobenzaprine (FLEXERIL) 10 mg, Oral, 3 times daily diazePAM (VALIUM) 5 mg, Oral, 3 times daily PRN Drug [place] Unifine Pentips 31G X 5 MM misc USE DIRECTED FOUR TIMES DAILY fluorometholone (FML) 0.1 % ophthalmic suspension instill 1 (ONE) DROP IN BOTH EYES FOUR TIMES DAILY FOR 7 DAYS then instill 1 (ONE) DROP IN BOTH EYES TWICE DAILY FOR 7 DAYS FLUoxetine (PROZAC) 20 mg, Oral, Daily glucose blood ([place] [employer]uch Ultra) test strip Fsbs bid insulin lispro (HumaLOG) 100 UNIT/ML injection INJECT 5-10 UNITS BREAKFAST, 30 UNITS LUNCH/ DINNER PLUS CORRECTIONS OF 1:30 > 150MG/DL ( MAX 100 UNITS A DAY) Lancets (LumavitaTouch Delica Plus [id number]) [facility] use to test BLOOD SUGAR THREE TIMES DAILY lansoprazole (Prevacid) [address] capsule lansoprazole 30 mg capsule,delayed release Lantus SoloStar 60 Units, Subcutaneous, Nightly lisinopril 10 mg, Oral, 2 times daily magnesium oxide (MAG-OX) 400 mg, Oral, Daily metoprolol succinate XL (TOPROL-XL) 50 mg, Oral, Daily Ozempic (1 MG/DOSE) 1 mg, Subcutaneous, Weekly simvastatin (ZOCOR) 40 mg, Oral, Nightly spironolactone (ALDACTONE) 50 mg, Oral, Daily REVIEW OF SYSTEMS: Review of Systems Constitutional: Negative for fatigue, fever and unexpected weight change. Eyes: Negative for redness and visual disturbance. Gastrointestinal: Negative for abdominal pain. Denies Indigestion Musculoskeletal: See note: Skin: Negative for color change and rash. Neurological: Negative for light-headedness and numbness. Vitals: Body mass index is 35.73 kg/m . PHYSICAL EXAM: Physical Exam Constitutional: General: He is not in acute distress. Appearance: Normal appearance. HENT: Head: Normocephalic and atraumatic. Right Ear: External ear normal. Left Ear: External ear normal. Nose: Nose normal. No rhinorrhea. Mouth/Throat: Mouth: Mucous membranes are moist. Pharynx: No posterior oropharyngeal erythema. Eyes: Extraocular Movements: Extraocular movements intact. Conjunctiva/sclera: Conjunctivae normal. Cardiovascular: Rate and Rhythm: Normal rate and regular rhythm. Pulses: Normal pulses. Heart sounds: No murmur heard. Pulmonary: Effort: Pulmonary effort is normal. No respiratory distress. Breath sounds: Normal breath sounds. No wheezing or rhonchi. Abdominal: Palpations: Abdomen is soft. Tenderness: There is no abdominal tenderness. Musculoskeletal: Cervical back: Normal range of motion and neck supple. Lymphadenopathy: Cervical: No cervical adenopathy. Skin: General: Skin is warm and dry. Findings: No erythema or rash. Neurological: General: No focal deficit present. Mental Status: He is alert and oriented to person, place, and time. Psychiatric: Mood and Affect: Mood normal. Behavior: Behavior normal. Orders Placed This Encounter Procedures Basic metabolic panel Standing Status: Future Number of Occurrences: 1 Standing Expiration Date: 03/13/2025 Order Specific Question: Print requisition? Answer: No CBC auto differential Standing Status: Future Number of Occurrences: 1 Standing Expiration Date: 03/13/2025 Order Specific Question: Print requisition? Answer: No Protime-INR Standing Status: Future Number of Occurrences: 1 Standing Expiration Date: 03/13/2025 Order Specific Question: Print requisition? Answer: No ASSESSMENT: ICD-10-CM 1. Preop examination Z01.818 Basic metabolic panel CBC auto differential Protime-INR Basic metabolic panel CBC auto differential Protime-INR PLAN: This patient presents for preadmission testing for upcoming surgery. Complete history with medical, surgery, and current allergy and medication list obtained. Consent for surgery signed and witnessed after verbal consent to perform surgery received. All questions answered and proposed surgery scheduled. (L) SHOULDER SCOPE 03/25 @FOREIGN SX INSTRUCTIONS GIVEN TODAY 03/18 @8:30AM - MOUNTAIN TOP ULTRASLING GIVEN TODAY ARTHREX NOTIFIED PA APPROVED ([id number]) Patient presents today for fitting of left L3670 Shoulder Orthosis, Acromioclavicular, Prefabricated, Off the Shelf today. Brace is used to immobilize and increase stability of the shoulder joint to allow for full and complete healing. Fitting and adjustments were done under physician order and supervision. Patient was placed in the brace and all straps were adjusted for proper fit. Brace was dispensed to the patient and [employer] Patient Agreement was completed and signed. Warranty information was given and explained to the patient with good understanding. Proper care and fitting was also explained to the patient with good understanding. Follow up for 04/08 @9am w/tish in [place]. documented in this encounter [facility] 02-04-2024 Hospital Discharg e instructions Patient Education [...] treatment? Where to find more information [employer]: www.cancer.org [employer]: www.auanet.org Contact a health care [...] provider. Document Revised: 11/28/2021 Document Reviewed: 11/28/2021 [employer] Patient Education 2022 [employer]. Follow Up Care 02/12/2023 10:16:19 With:NICOLA RAYMUNDO, Peterson Owens, URL Address: [facility] [address] [place] [address]- [phone] When: Unknown [facility] [place] 02-04-2024 Note Patient Education Oncology Prostate [...] Where to find more information ? The [employer]: www.cancer.org ? [employer]: www.auanet.org Contact a health care [...] of the rectum. (more content not included)... [facility] 08-27-2023 Miscellaneous Notes ----- Message from SONNY Denis sent at 08/24/2023 10:25 AM EST ----- EF >45% ok for ASV Noted below in sleep lab encounter and on appt desk for techs for titration appt documented in this encounter [facility] 08-27-2023 Telephone encounter Note ----- Message from SONNY Denis sent at 08/24/2023 10:25 AM EST ----- EF >45% ok for ASV [facility] 08-27-2023 Telephone encounter Note Noted below in sleep lab encounter and on appt desk for techs for titration appt [facility] 08-17-2023 Miscellaneous Notes 08/15 received CPAP order 08/16 Scheduled CPAP at [facility] 6/ Confirmation mailed and emailed [employer] CPAP order and 08/15 Loree notes in epic With TCO2 monitoring. Please obtain baseline in supine position. Starting pressure IPAP25 EPAP10 PS 5 notes CSA on last download plans for Echo prior to titration documented in this encounter [facility] 08-17-2023 Telephone encounter Note 08/15 received CPAP order 08/16 Scheduled CPAP at [facility] 6/3 Confirmation mailed and emailed [employer] CPAP order and 08/15 Loree notes in epic With TCO2 monitoring. Please obtain baseline in supine position. Starting pressure IPAP25 EPAP10 PS 5 notes CSA on last download plans for Echo prior to titration [facility] [employer] 08-15-2023 History of Presen t illness Narrative [...] humidifier. Cleaning supplies with soap and water. Shipman Sleepiness Scale: Sitting and Reading: (!) Moderate [...] Anemia Unknown Arthritis Benign prostatic hyperplasia Cancer ([facility]-H[facility]) PROSTATE COPD (chronic obstructive pulmonary disease) [place] Unknown Diabetes mellitus type 2, controlled ([facility] GERD (gastroesophageal reflux disease) [...] Titration: 03/21/19 PS08/2014 w/ AHI 95 DME: [employer] Data card was available for PAP usage [...] Standing Expiration Date: 08/15/2024 Order Specific Question: [facility] required diagnosis: Answer: Personal history of [...] Order Specific Question: Release to patient via Chu Shuhart? Answer: Immediate [1] Echo complete W/O contrast [...] titration Order Specific Question: Follow Up Answer: [facility] Sleep Medicine to read and follow [...] not to drive if sleepy, and to pipe puller if sleepiness occurs while driving. Above [...] that have escaped final proofreading. Gregoria Gibbs [facility] Office: [phone] 2:57 PM on 08/15/2023 CC: MD Gregoria GONZALEZ APRN-CNP 08/16/23 1438 documented in this encounter [facility] 08-15-2023 Instructions SONNY Denis - 08/15/2023 1:15 PM EST If you re looking for general health and wellness resources, please visit [email or web address]. documented in this encounter [facility] 08-02-2023 Miscellaneous Notes Received sleep referral from Valeria Mckeon NP. Pt is already an established pt and last saw in 2020- was recommended to follow up with KW. However he was a no show for his last 2 appt with our office. Chat to Tahmina to advise if still to schedule appt. documented in this encounter [facility] 08-02-2023 Telephone encounter Note Received sleep referral from Valeria Mckeon NP. Pt is already an established pt and last saw in 2020- was recommended to follow up with KW. However he was a no show for his last 2 appt with our office. Chat to Tahmina to advise if still to schedule appt. [facility] 07-30-2023 History of Presen t illness Narrative Associated Problem(s): Type 2 diabetes mellitus with diabetic polyneuropathy, with long-term current use of insulin ([facility]) During the appointment today [...] Breakfast Lunch Dinner Snacks Drinks Premade meal ([place] and dressing) (Mac and cheese) Protein shake [...] polyneuropathy, with long-term current use of insulin ([facility]) During the appointment today [...] (BMI) of 36.0 to 36.9 in adult ([facility]) - Primary Follow up [...] UNITS A DAY) LANCETS (ONETOUCH DELICA PLUS [id number]) MISC use to test BLOOD SUGAR THREE [...] BLOOD GLUC SENSOR (FREESTYLE CORNELIUS 2 SENSOR) [facility] Use as directed LOPERAMIDE (IMODIUM) 2 MG CAPSULE Take 2 mg by mouth in the morning and 2 mg before bedtime. METHOCARBAMOL (ROBAXIN) 750 MG TABLET Take 1 tablet (750 mg) by mouth in the morning and 1 tablet (750 mg) at noon and 1 tablet (750 mg) in the evening and 1 tablet (750 mg) before bedtime. documented in this encounter [facility] 04-27-2023 Procedure note [facility] 04-10-2023 Evaluation note Encounter Date Diagnosis Assessment Notes Mar, GERD (gastroesophage al reflux disease) (ICD-10 - K21.9) The patient continues to complain of ongoing regurgitation. He is taking Lansoprazole 30 mg dialy & we will increase this to 30 mg bid. Mar, Hemorrhoids (ICD-10 - K64.9) Mar, Alternating constipation and diarrhea (ICD-10 - R19.8) [employer] Other 10-03-2023 Evaluation note* Encounter Date Diagnosis Assessment Notes Treatment Notes Treatment Clinical Notes Mar, Gastroesophageal ref lux disease with esophagitis (ICD-10 - K21.0) [facility] 08-28-2023 Hospital Discharge instructions Patient Education [...] greater thelikelihood that the cancer will spread. [place] 6 or lower: This indicates that the cancer cells look similar to normal prostate cells (well differentiated). [place] 7: This indicates that the cancer cells look somewhat similar to normal prostate cells (moderately differentiated). [place] 8, 9, or 10: This indicates that [...] stress of having cancer. General instructions Take gjhn-pcz-rzldxvb and prescription medicines only as told by your health care provider. If you have to go to the hospital, notify your cancer specialist (oncologist). Keep all follow-up visits. This is important. Where to find more information [employer]: www.cancer.org [employer] Society of Clinical Oncology: www.cancer.net National Cancer [place]: www.cancer.gov Contact a health care provider if: [...] provider. Document Revised: 08/31/2021 Document Reviewed: 08/31/2021 [email or web address] Patient Education 2022 [employer]. Follow Up Care 02/03/2022 09:06:37 With:NICOLA RAYMUNDO, Peterson Owens, URL Address: [facility] [address], [place] [address]- [phone] When: Unknown Comments:1 yr w/ PSA [facility] 04-05-2023 Evaluation note* Encounter Date Diagnosis Assessment Notes Treatment Notes Treatment Clinical Notes Sep, Gastroesophageal ref lux disease with esophagitis (ICD-10 - K21.0) [employer] Other 02-06-2023 Procedure [facility]02-02-2023 Evaluation note* Encounter Date Diagnosis Assessment Notes Treatment Notes Treatment Clinical Notes Jul, Diarrhea (ICD-10 - R19.7) Jul, GERD (gastroesophageal reflux disease) (ICD-10 - K21.9) Jul, Hemorrhoids (ICD-10 - K64.9) PATIENT TO START ANUSOL CREAM USE SITZ BATH NEEDED Jul, Dysphagia (ICD-10 - R13.10) [employer] Other 10-28-2022 NotePROCEDURE: XR FOOT RT MIN [...] by: SORIN SHORE Date: 2022-04-14 18:01[facility]08-19-2022 Hospital Discharge instructions Patient Education 02/03/2022 [...] urethra. Follow these instructions at home: Take bxtm-wwq-mrxuuti and prescription medicines only as told by [...] 06/04/2006 Document Revised: 04/29/2019 Document Reviewed: 07/09/2017 [email or web address] Patient Education 2019 [employer]. Follow Up Care 08/05/2021 10:59:30 With:NICOLA RAYMUNDO, Peterson Owens, URL Address: [facility] [address], [place] [address]- When:1 year Comments:W/ PSA [facility] [place] 08-17-2021 NoteHNO ID: [id number] Author: Fawad Diaz MD Service: ? Author [...] Fawad Diaz MD cc: Dank Campo MD ([facility]) [address] [place] [address] Dr. Petersen Portions of the above note extracted and edited from previous visit as well as active information included in the EMR.[facility] 11-04-2020 NoteHNO ID: [id number] Author: Fawad Diaz MD Service: ? Author Type: Physician Type: Progress Notes Filed: 11/04/2020 9:44 AM Note Text: Radiation Oncology - Follow Up Note PATIENT NAME: Milad Seymour PATIENT DIAGNOSIS: DIAGNOSIS: Prostate adenocarcinoma, initial PSA 14.65, biopsy Bro[place] Arrow score 3 + 3 = 6 (grade [...] ASSESSMENT/PLAN:DIAGNOSIS: Prostate adenocarcinoma, initial PSA 14.65, biopsy [place] score 3 + 3 = 6 (grade [...] Fawad Diaz MD cc: Dank Campo MD ([facility]) [address] [place] [address] Dr. [facility] Future Appointments Appointment Date:02/12/2023 09:15:00 AM Scheduled Provider:Peterson PETERSEN MD Location:[facility] Appointment Type:URO Office Visit Diagnostic Tests Pending * PSA Total 02/03/22 [facility] Evaluation + Plan note Future Appointments Appointment Date:02/12/2023 09:15:00 AM Scheduled Provider:Peterson PETERSEN MD Location:[facility] Appointment Type:URO Office Visit [facility] evaluation + Plan note Future Appointments Appointment Date:02/15/2024 08:15:00 AM Scheduled Provider:Peterson PETERSEN MD Location:[facility] Appointment Type:URO Office Visit Diagnostic Tests Pending * PSA Total 02/12/23 [facility] evaluation + Plan note Future Appointments Appointment Date:02/04/2024 11:30:00 AM Scheduled Provider:Peterson PETERSEN MD Location:[facility] Appointment Type:URO Office Visit [facility] evaluation + Plan note Future Appointments Appointment Date:02/09/2025 08:45:00 AM Scheduled Provider:Peterson PETERSEN MD Location:[facility] Appointment Type:URO Office Visit Diagnostic Tests Pending * PSA Total 02/04/24 [facility] evaluation noteNo assessment information available [facility] Work Phone: evaluation noteNo InformationNofreeman heart institute [employer] Other [employer] note* Diagnosis Class 2 severe obesity due to excess calories with serious comorbidity and body mass index (BMI) of 36.0 to 36.9 in adult ([facility])- Primary Type 2 diabetes mellitus with diabetic polyneuropathy, with long-term current use of insulin ([facility]) [facility] Diagnosis Onset Date Resolution Status H/O rotator cuff surgery acu te [facility] Work Phone: evaluation note* Diagnosis Personal history of tobacco use, presenting hazards to health- Primary Obstructive sleep apnea syndrome Obstructive sleep apnea (adult) (pediatric) CSA (central sleep apnea) Unspecified sleep apnea [facility] Diagnosis Onset Date Resolution Status Diarrhea acute GERD (gastroesophageal reflux disease) acute [facility] Work Phone: Evaluation note* Diagnosis Encounter for other preprocedural examination [facility] Diagnosis Preop examination- Primary Unspecified pre-operative examination documented in this encounter [facility]* Diagnosis Internal derangement of left shoulder- Primary documented in this encounter [facility] note* Diagnosis Type 2 diabetes mellitus with diabetic polyneuropathy, with long-term current use of insulin ([facility])- Primary Class 2 severe obesity due to excess calories with serious comorbidity and body mass index (BMI) of 35.0 to 35.9 in adult ([facility])- Primary Type 2 diabetes mellitus with diabetic polyneuropathy, with long-term current use of insulin ([facility]) Long-term insulin use ([facility]) Lumbar spondylosis- Primary Lumbosacral spondylosis without myelopathy Benign essential hypertension ([facility]) Essential hypertension, benign Bilateral leg edema Edema Class 2 severe obesity due to excess calories with serious comorbidity and body mass index (BMI) of 36.0 to 36.9 in adult ([facility])- Primary Type 2 diabetes mellitus with diabetic polyneuropathy, with long-term current use of insulin ([facility]) Benign essential hypertension ([facility])- Primary Essential hypertension, benign Lumbar spondylosis Lumbosacral spondylosis without myelopathy Bilateral leg edema Edema Type 2 diabetes mellitus with diabetic polyneuropathy, with long-term current use of insulin ([facility]) Hypercholesteremia ([facility]) Pure hypercholesterolemia Encounter for long-term (current) use of medications Encounter for long-term (current) use of other medications Obesity (BMI 30-39.9) Body mass index [BMI] 36.0-36.9, adult (Z68.36) JARAD (generalized anxiety disorder) ([facility])- Primary Generalized anxiety disorder Benign essential hypertension ([facility]) Essential hypertension, benign Class 2 severe obesity due to excess calories with serious comorbidity and body mass index (BMI) of 35.0 to 35.9 in adult ([facility])- Primary Type 2 diabetes mellitus with diabetic polyneuropathy, with long-term current use of insulin ([facility]) Long-term insulin use (CMS/HCC) Benign essential hypertension (CMS/HCC)- Primary Essential hypertension, benign JARAD (generalized anxiety disorder) (CMS/HCC) Generalized anxiety disorder Bilateral leg edema Edema Lumbar spondylosis Lumbosacral spondylosis without myelopathy Benign essential hypertension (CMS/HCC)- Primary Essential hypertension, benign JARAD (generalized anxiety disorder) (CMS/HCC) Generalized anxiety disorder Lumbar spondylosis Lumbosacral spondylosis without myelopathy Bilateral leg edema Edema Prostate cancer (CMS/HCC) Malignant neoplasm of prostate Type 2 diabetes mellitus with hyperglycemia, with long-term current use of insulin (CMS/HCC) Class 2 severe obesity due to excess calories with serious comorbidity and body mass index (BMI) of 35.0 to 35.9 in adult (CMS/HCC)- Primary Type 2 diabetes mellitus with hyperglycemia, with long-term current use of insulin (CMS/HCC) Type 2 diabetes mellitus with diabetic polyneuropathy, with long-term current use of insulin (CMS/HCC) Long-term insulin use ([facility]/HCC) Type 2 diabetes mellitus with stage 3a chronic kidney disease, with long-term current use of insulin (HCC) (CMS/[facility]) Pre-op examination- Primary Preop examination Unspecified pre-operative examination documented in this encounter [facility] Author Kike Bernal [facility] July 24, 2022 1:05pm Note Date/Time July 24, 2022 1 :05pm [facility] [address] [place] [address] Gastroenterology H&P Signed Patient: Milad Seymour MR#: [id number] : 1955 Acct:[id number] Age/Sex: 66 / M Adm Date: 3 Loc: Room: Type: [facility] Attending Dr: Kike Bernal MD [...] signed by Kike Bernal MD> 07/24/22 1305 [facility] Work Phone: History and physical note Author Kike Bernal [facility] April 27, 2023 11:41am Note Date/Time April 27, 2023 11:41am [facility] [address] [place] [address] Gastroenterology H&P Signed Patient: Milad Seymour MR#: [id number] : 1955 Acct:[id number] Age/Sex: 67 / M Adm Date: 3 Loc: Room: Type: [facility] Attending Dr: Kike Bernal MD [...] signed by Kike Bernal MD> 04/27/23 1141 [facility] Work Phone: History general Narrative - Reported* [...] Hospitalization History none in the last year [employer] Other Hospital course Narrative No data available for this section [facility] Hospital Discharge instructions Additional Instructions DISCHARGE [...] NOT operate machinery such as power tools, [employer] mowers, snow blowers, sewing machines, etc. for [...] problems. -Follow up with PCP. -Office number [phone]. [facility] Work Phone: Hospital Discharge instructions No data available for this section [facility] Hospital Discharge instructions Additional Instructions DISCHARGE [...] NOT operate machinery such as power tools, [employer] mowers, snow blowers, sewing machines, etc. for [...] in the office as scheduled -Office number [phone]. [facility] Work Phone: InstructionsNot on filedocumented in this encounter [facility] filedocumented in this encounter [facility]Not on filedocumented in this encounter [facility] No data available for this section [facility] Summary Purpose Family History Relationship Condition Age at Onset Recorded Date/T katelyn father Cerebrovascular accident (CVA) Unknown Myocardial infarction Unknown Not Specified Cerebrovascular accident (CVA) Unknown Relationship Condition Age at Onset Recorded Date/T katelyn father Myocardial infarction Unknown Cerebrovascular accident (CVA) Unknown Not Specified Cerebrovascular accident (CVA) Unknown Diabetes mellitus Unknown daughter Hypertension Unknown Relationship Condition Age at Onset Recorded Date/T katelyn father Myocardial infarction Unknown Cerebrovascular accident (CVA) Unknown mother Cerebrovascular accident (CVA) Unknown Diabetes mellitus Unknown daughter Hypertension Unknown Advance Directives Advance Directive Response Recorded Date/ Time Advance Directives No October 11, 2 018 1:12pm Latest Code Status on File Code Status Date Activated Date Inactivated Comments Full Code 12/20/2018 5:21 AM 12/23/2018 4:36 PM Latest Code Status on File Code Status Date Activated Date Inactivated Comments Full Code 12/20/2018 5:21 AM 12/23/2018 4:36 PM Advance Directive Response Recorded Date/ Time Advance Directives No October 11, 2 018 2:12pm Date Activated Date Inactivated Comments 12/20/2018 5:21 AM 12/23/2018 4:36 PM Chief Complaint and Reason for Visit Chief Complaint Gerd, Dysphagia Chief Complaint Constipation, Diarrh ea, Blood in Stool Chief Complaint Constipation, Diarrh ea, Blood in Stool m47.816 Chief Complaint m47.816 m24.812 m47.816 Reason for Visit H/O rotator cuff naren scott Chief Complaint dysphagia Reason for Visit Diarrhea GERD (gastroesophageal reflux disease) Reason for Referral Specialty Diagnoses / Procedures Referred By Contac t Referred To Contact Diagnoses Obstructive sleep apnea syndrome CSA (central sleep apnea) Procedures Polysomnography 4 or more parameters with PAP titration Gregoria Ralph [employer] P[employer]ER-HEARING SPECIALIST [address] [address] Referral ID Status Reason Start Date Expiration Date V isits Requested Visits Authorized [id number] Pending Review 08/15/2023 08/14/2024 1 1 Specialty Diagnoses / Procedures Referred By Contac t Referred To Contact Diagnoses Obstructive sleep apnea syndrome CSA (central sleep apnea) Procedures Echo complete W/O contrast Gregoria Ralph [employer] P[employer]HEARING SPECIALIST [address] [address] [facility] - [facility] [address] [place] [address] Phone: [phone] Referral ID Status Reason Start Date Expiration Date V isits Requested Visits Authorized [id number] Authorized 08/15/2023 11/12/2023 1 1 Specialty Diagnoses / Procedures Referred By Contac t Referred To Contact Radiology Diagnoses Personal history of tobacco use, presenting hazards to health Procedures CT low dose lung screenin (3mo 6mo follow-up) Gregoria Ralph, [employer] P[employer]ER-HEARING SPECIALIST [address] [facility], [address] [place] [address] [facility]) - [facility] [address] [place] [address] Phone: [phone] Referral ID Status Reason Start Date Expiration Date V isits Requested Visits Authorized [id number] Authorized 08/16/2023 11/13/2023 1 1 Additional Source Comments (unrecognized sect ion and content) No Status Records FoundNo Status Records FoundNo Status Records FoundNo Status Records FoundNo Status Records FoundNo Status Records FoundNo Status Records FoundNo Status Records FoundNo Status Records Found INFORMATION SOURCE (unrecogn ized section and content) DATE CREATED AUTHOR 08/06/2021 [facility] DATE CREATED AUTHOR AUTHOR'S ORGANIZ ATION 10/24/2022 [facility] DATE CREATED AUTHOR AUTHOR'S ORGANIZ ATION 11/20/2023 [facility] DATE CREATED AUTHOR AUTHOR'S ORGANIZ ATION 12/15/2023 [facility] DATE CREATED AUTHOR AUTHOR'S ORGANIZ ATION 02/05/2024 [facility] DATE CREATED AUTHOR AUTHOR'S ORGANIZ ATION 02/26/2024 [facility] DATE CREATED AUTHOR AUTHOR'S ORGANIZ ATION 03/17/2024 [facility] DATE CREATED AUTHOR AUTHOR'S ORGANIZ ATION 03/19/2024 [facility] DATE CREATED AUTHOR AUTHOR'S ORGANIZ ATION 03/19/2024 [facility] Care Team (unrecognized sect ion and [...] July 17, 2023 End: July 17, 2023 Labor Relations Specialist Relationship Specialty Start Date End Date Dank Campo MD [address] [place] [address] PCP - General Family Medicine 07/25/23 Labor Relations Specialist Relationship Specialty Start Date End Date Dank Campo MD [address] [place] [address] PCP - General Family Medicine 07/25/23 Labor Relations Specialist Relationship Specialty Start Date End Date Dank Campo MD [address] [place] [address] PCP - General Family Medicine 12/10/17 Team [...] August 09, 2023 End: August 09, 2023 Labor Relations Specialist Relationship Specialty Start Date End Date Dank Campo MD [address] [place] [address] PCP - General Family Medicine 12/10/17 Labor Relations Specialist Relationship Specialty Start Date End Date Dank Campo MD [address] [place] [address] PCP - General Family Medicine 12/10/17 Team Status: Inactive Member Role Status Dates Dank Campo MD Primary Care Provider Active S tart: March 17, 2024 End: March 17, 2024 Rich Alvares APRN Attending Provider Active Start: March 17, 2024 End: March 17, 2024 Labor Relations Specialist Relationship Specialty Start Date End Date Dank Campo MD [address] [place] [phone] PCP - General Family Medicine 03/12/24 Labor Relations Specialist Relationship Specialty Start Date End Date Dank Campo MD [address] [place] [phone] PCP - General Family Medicine 08/17/23 Labor Relations Specialist Relationship Specialty Start Date End Date Dank Campo MD [address] [place] [phone] PCP - General Family Medicine 08/17/23 Labor Relations Specialist Relationship Specialty Start Date End Date Dank Campo MD [address] [place] [address] PCP - General Family Medicine 08/17/23 Labor Relations Specialist Relationship Specialty Start Date End Date Dank Campo MD [address] [place] [phone] PCP - General Family Medicine 08/17/23 Labor Relations Specialist Relationship Specialty Start Date End Date Dank Campo MD [address] [place] [address] PCP - General Family Medicine 08/17/23 Labor Relations Specialist Relationship Specialty Start Date End Date Dank Campo MD [address] [place] [phone] PCP - General Family Medicine 08/17/23 Labor Relations Specialist Relationship Specialty Start Date End Date Dank Campo MD [address] [place] [address] PCP - General Family Medicine 08/17/23 REASON FOR VISIT (unrecogniz ed section and content) Reason Comments Diabetes Reason Comments Sleep Apnea DME: [facility] Specialty Diagnoses / Procedures Referred By Anabel salinas Referred To Contact Pulmonary Medicine / Sleep Medicine Diagnoses Obstructive sleep apnea syndrome Jyoti Roth, [employer] P[employer]ER[employer]HEARING SPECIALIST [address] [place] [id number] [facility] [place] [address] Referral ID Status Reason Start Date Expiration Date Visits Requested Visits Authorized [id number] Pending Review Specialty Services Required 08/13/2023 08/12/2024 1 1 Reason Onset Date Comments Sleep Lab 08/17/2023 CPAP Reason Comments Pain Goals (unrecognized section and content) Goals may [...] BE BASED ON THE PRIMARY CLINICAL RECORDS. [facility] [employer] [facility]. provides no warranty or guarantee of the accuracy or completeness of information in this document.
--- NOTE | 2024-04-09 11:55 | P.CN_ITS ---
Consult Note: HPI Data of Consult Patient: known to practice within the last 3 years Consult date: 10/01/23 Requesting Physician: Sandra Vu NP Primary Care Provider: Dank Bella MD Consult Narrative Reason for consult: low back pain Narrative: 68yom who presents for evaluation. underwent physical therapy within past 6 months, which did not provide lasting benefit. imaging shows multilevel degenerative changes, with stenosis at multiple levels, worst at l4-5. denies adverse med side effects. patient reporting pain 1/10 increasing to 8/10 with standing, walking, pushing, pulling, raking, yardwork, activity. Currently utilizing celebrex 200mg daily, flexeril 10mg TID PRN, asa, prozac, diazepam. Since last visit pt underwent bilateral L4/5 TFESI with 100% improvement ongoing of radicular symptoms, since starting gabapentin 300mg BID patient has had complete resolution of painful diabetic neuropathy. cc:: CC: Sandra Vu NP Review of Systems ROS Status of ROS 10 or more systems reviewed and unremark able except as noted in history and below Musculoskeletal Reports: back pain PFSH PFSH Medical History (Updated 02/28/24 @ 09:23 by Sandra Vu NP) Low back pain ?M54.50 - Low back pain, unspecified (ICD-10) Neck pain ?M54.2 - Cervicalgia (ICD-10) Osteoarthritis ?M19.90 - Unspecified osteoarthritis, unspecified site (ICD-10) Anxiety ?F41.9 - Anxiety disorder, unspecified (ICD-10) Heartburn ?R12 - Heartburn (ICD-10) Hiatal hernia ?K44.9 - Diaphragmatic hernia without obstruction or gangrene (ICD-10) Acid reflux ?K21.9 - Gastro-esophageal reflux disease without esophagitis (ICD-10) Prostate cancer ?C61 - Malignant neoplasm of prostate (ICD-10) Enlarged prostate ?N40.0 - Benign prostatic hyperplasia without lower urinary tract symptoms (ICD-10) Diabetes ?E11.9 - Type 2 diabetes mellitus without complications (ICD-10) History of home ventilator ?Z99.11 - Dependence on respirator [ventilator] status (ICD-10) Smoker ?F17.200 - Nicotine dependence, unspecified, uncomplicated (ICD-10) Sleep apnea ?G47.30 - Sleep apnea, unspecified (ICD-10) COPD (chronic obstructive pulmonary disease) ?J44.9 - Chronic obstructive pulmonary disease, unspecified (ICD-10) Heart murmur ?R01.1 - Cardiac murmur, unspecified (ICD-10) Irregular heart beat ?I49.9 - Cardiac arrhythmia, unspecified (ICD-10) High cholesterol ?E78.00 - Pure hypercholesterolemia, unspecified (ICD-10) Hypertension ?I10 - Essential (primary) hypertension (ICD-10) Surgical History S/P foot surgery ?Z98.890 - Other specified postprocedural states (ICD-10) Hx laparoscopic cholecystectomy ?Z90.49 - Acquired absence of other specified parts of digestive tract (ICD- 10) S/P shoulder surgery ?Z98.890 - Other specified postprocedural states (ICD-10) S/P left knee arthroscopy ?Z98.890 - Other specified postprocedural states (ICD-10) History of appendectomy ?Z90.49 - Acquired absence of other specified parts of digestive tract (ICD- 10) Meds Home Medications and Allergies Home Medications ?Medication ?Instructions ?Recorded ?Confirmed ?Type aspirin 81 mg capsule 81 mg PO DAILY 10/02/23 03/10/24 History celecoxib 200 mg capsule mg 10/02/23 History insulin glargine 100 unit/mL 60 unit subcut DAILY 10/02/23 03/10/24 History subcutaneous solution (Lantus U-100 Insulin) insulin lispro 100 unit/mL subcut 10/02/23 History subcutaneous pen lansoprazole 30 mg capsule,delayed mg 10/02/23 History release lisinopril 10 mg tablet mg 10/02/23 History loperamide 2 mg capsule mg 10/02/23 History magnesium oxide 400 mg (241.3 mg mg 10/02/23 History magnesium) tablet metoprolol succinate 50 mg mg PO 10/02/23 History tablet,extended release 24 hr simvastatin 40 mg tablet mg 10/02/23 History semaglutide 1 mg/dose (4 mg/3 mL) 1 mg subcut QWEEK 11/05/23 03/10/24 History subcutaneous pen injector (Ozempic) gabapentin 300 mg capsule 300 mg PO BID #60 caps 02/28/24 03/10/24 Rx cyclobenzaprine 10 mg tablet mg 03/10/24 History cyclobenzaprine 10 mg tablet 10 mg PO TID PRN muscle spasm #90 04/03/24 Rx tabs gabapentin 300 mg capsule 300 mg PO BID #60 caps 04/03/24 Rx Allergies Allergy/AdvReac Type Severity Reaction Status Date / Time No Known Drug Allergies Allergy Verified 03/10/24 10:36 Exam Constitutional Documenting provider has reviewed patient's vital signs: yes Common normals: no apparent distress, oriented x3, healthy appearing, alert and well nourished General appearance: cooperative HENMT Common normals: normocephalic, hearing grossly normal bilaterally and moist oral mucous membranes Head and scalp: normocephalic Eye Common normals: PERRL Pupil: PERRL Neck & C-Spine Common normals: full ROM General: normal visual inspection Chest Common normals: inspection of chest normal Respiratory Common normals: normal respiratory effort, no retractions and no use of accessory muscles Back & Pelvis Lumbar spine/lower back: ROM limited, pain with ROM and straight leg raise negative bilaterally Sacroiliac joints: SI joints normal Other: positive axial facet loading tenderness over L3-L5 facets Extremity Common normals: normal to inspection and full ROM Neuro Common normals: oriented x3, CN's II-XII intact bilaterally, moves all extremities, no focal motor deficits, no sensory deficits noted, deep tendon reflexes 2+ bilaterally and gait normal Sensorium/orientation: alert Motor exam: strength 5/5 throughout and no movement abnormalities noted Psych Common normals: mental status grossly normal, thought process normal, cooperative, affect normal, speech normal and activity/motor behavior normal Speech: normal speech Thought process: normal thought process Results Additional Findings Additional findings: If on a controlled substance or opioids, I have checked an [place] report on this patient and there are no aberrancies noted in the prescribing history.??If on a controlled substance or opioid a drug screen was completed and reviewed within the last year, and if there has not been a drug screen completed we ordered one today to monitor higher risk, state monitored pain medication use. As part of providing excellent, safe, comprehensive care, the following was completed at our patient's visit: 1. A medication reconciliation and review to ensure accurate knowledge of current/active medications, including asking our patients to inform us about any [id number] medications or herbal remedies/nutritional supplements/alternative remedies. 2. A review to specifically ensure our patients have had annual screening for screening for depression, screening for tobacco use, and screening for unhealthy alcohol use. For concerning screenings had a discussion with the patient, provided patient education, and recommended follow-up with primary care provider when appropriate. If patient noted with a risk of falling, they received education on strength, gait, and balance training to prevent future risk of falling. Assessment and Plan Assessment and Plan (1) Lumbar spondylosis: Assessment and Plan: The patient has had over 3 months of moderate to severe low back pain with functional impairment and inadequate response to conservative care including NSAIDS (unless there are contraindication such as concurrent blood thinners), multiple oral or topical pain medications, and home exercise program/physical therapy.? Patient has completed >6 weeks of guided home exercise program and/or formal physical therapy program without relief of their symptoms.? I have reviewed the imaging of the lumbar spine and no red flags were identified.? We discussed the risks and benefits of the procedure with the patient, and we are NOT planning on using sedation as outlined in the guidelines from Medicare unless there is a documented reason that sedation would be strongly recommended.?? ?The procedure will be completed with fluoroscopic guidance.? (2) Painful diabetic neuropathy: (3) Myofascial pain: Plan bilateral L3-4 L4-5 facet medial branch block x2 working towards RFA continue current medications f/u after each injection
== END 2024-04-09 11:27 | disposition home or self-care (01) ==
LOC: PM 11:26
PROVIDERS: PCP Family Medicine; Visit Provider Nurse Practitioner
DX: M47.816 Spondylosis without myelopathy or radiculopathy, lumbar region (principal); E11.40 Type 2 diabetes mellitus with diabetic neuropathy, unspecified; M79.18 Myalgia, other site
CPT/HCPCS: G0463

== ENCOUNTER 2024-04-18 08:00 | Outpatient (OUT) | payer MEDICARE, SELFPAY ==
--- OUTSIDE RECORDS SUMMARY | 2024-04-18 08:07 | XMS_ITS | CCD ---
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 Exporter Name Role Phone DANK CAMPO Primary Care Physician [phone] MD Dank Campo Primary Care Provider [phone] MD Kike Bernal Attending Provider Asaad, Imad Unavailable FERNANDO ., MR REBECCA Admitting Unavailable NADERER, DR DANK Leon Primary Care Unavailable DIAS [...] NADERER, DR DANK Leon Primary Care Unavailable LOYALHANNA, DR SORIN Rodarte Consulting Unavailable NADERER, DR DANK Leon Admitting Unavailable NADERER, DR DANK Leon Attending Unavailable NADERER, DR DANK Leon Primary Care Unavailable FELIXEREGraciela, DR DANK Leon Consulting Unavailable MD Dank Campo Primary Care Provider [phone] MD Kike Bernal Attending Provider [phone] MD Dank Campo Attending Provider MD Dank Campo Attending Provider Jena RAYMUNDO, Dank Primary Care Provider Dank Campo MD Primary Care Provider MD Dank Campo Primary Care Provider KERRI Holden Attending Provider [phone] MD Dank Campo Referring Provider Dank Campo Primary Care Unavailable FelixererDank Attending Unavailable NadereDank owens Admitting Unavailable Asaad, Imad Attending Unavailable Naderegraciela, Dank Primary Care Unavailable Asaad, Imad Admitting Unavailable Edd Holden Admitting Unavailable Edd Holden Attending Unavailable Naderegraciela, Dank Primary Care Unavailable Naderer, Dank Primary Care Unavailable Asaad, Imad Admitting Unavailable Asaad, Imad Attending Unavailable Dank Campo Attending Unavailable Felixeregraciela, Dank Admitting Unavailable Naderer, Dank Primary Care Unavailable Naderer, Dank Attending Unavailable NadererDank Referring Unavailable Naderer, Dank Admitting Unavailable Naderer, Dank Primary Care Unavailable Naderer, Dank Primary Care Unavailable Jyoti Roth Admitting Unavailable Jyoti Roth Attending Unavailable GREGORIA RALPH Referring Unavailable NADERER, DANK Primary Care Unavailable Peterson PETERSEN Attending Unavailable ROSALVA MURO Attending Unavailable ROSALVA MURO Admitting Unavailable Peterson PETERSEN Attending Unavailable DEJUAN PETERSEN Attending Unavailable Peterson PETERSEN Attending Unavailable Peterson PETERSEN Attending Unavailable GREGORIA RALPH Attending Unavailable FELIXERERDANK Referring Unavailable NADERER, DANK Primary Care Unavailable HANNA BUTCHER Attending Unavailable FELIXERER, DANK Referring Unavailable NADERER, DANK Primary Care Unavailable Jessica RAYMUNDO, Andrius Arteaga Attending Unavailable Jessica RAYMUNDO, Andrius Vytauttio Attending Unavailable Jessica RAYMUNDO, Andrius Vytautas Attending Unavailable Jessica RAYMUNDO, Andrius Vytkatiuska Attending Unavailable Dank Campo MD Primary Care Provider [phone] Dank Campo MD Primary Care Provider GREGORIA RALPH Referring Unavailable NADERER, DANK Primary Care Unavailable GREGORIA RALPH Referring Unavailable NADERER, DANK Primary Care Unavailable HANNA BUTCHER Attending Unavailable HANNA BUTCHER Referring Unavailable NADEREGraciela, DANK Primary Care Unavailable REBECCA DIAS Referring Unavailable NADMARTI, DANK Primary Care Unavailable LAST, DEXTER Leon Attending Unavailable PETKERLINE, ASHLI Scott Attending Unavailable PETKERLINE, ASHLI Scott Attending Unavailable JR. JOON, JOHANNE Vidales Attending Unavaila ble LAST, DEXTER Leon Attending Unavailable NADERER, DANK Referring Unavailable NADERER, DANK Attending Unavailable RUSHER, DEXTER Leon Attending Unavailable HOLDEN, EDD Ocampo Attending Unavailable RUSHER, DEXTER Leon Attending Unavailable RUSHER, DEXTER Leon Attending Unavailable ROTH, JYOTI Attending Unavailable NADERER, DANK Attending Unavailable RUSHER, DEXTER Leon Attending Unavailable PETZNICK, ASHLI Scott Attending Unavailable HOLDEN, EDD Ocampo Attending Unavailable HOLDENEDD Referring Unavailable NADERER, DANK Attending Unavailable RUSHER, DEXTER Leon Attending Unavailable NADERER, ADNK Attending Unavailable RUSHER, DEXTER Leon Attending Unavailable NADERER, DANK Attending Unavailable PETZNDHARA, ASHLI Scott Attending Unavailable JR. JOON, JOHANNE Vidales Attending Unavailsrikanth HDEZ JR., JOHANNE Vidales Referring Unavaila graciela DIAS, REBECCA Cornell Attending Unavailable FERNANDO, REBECCA Cornell Attending Unavailable Allergies Allergy Classification Reported Allergen(s) Allergy Type Date of Onset Reaction(s) Facility (1 source) No Known Medication Allergies; 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: [No Known Medication Allergies] Propensity to adverse reactions (disorder) [facility] Repository Medications Current Medications Medication Drug Class(es) [...] Active 200 MG PO Twice daily January 30, 2019 12:00am Continuous Blood Gluc Sensor (Dexcom G7 Sensor) misc (13 sources) Start: 06-05-2023 End: 06-04-2024 Continuous Blood Gluc Sensor (Dexcom G7 Sensor) misc Indications: Type 2 diabetes mellitus with diabetic polyneuropathy, with long-term current use of insulin ([facility]) Inject 1 Device under the skin See administration instructions Change every 10 days 9 each 3 06/05/2023 06/04/2024 Active Continuous Blood Gluc Sensor (FreeStyle Cornelius 2 Sensor) misc (2 sources) Start: 05-23-2023 End: 07-30-2023 Continuous Blood Gluc Sensor (FreeStyle Cornelius 2 Sensor) misc Indications: Type 2 diabetes mellitus with diabetic polyneuropathy, with long-term current use of insulin ([facility]) Use as directed 2 each 11 05/23/2023 07/30/2023 Discontinued (Therapy completed) cyclobenzaprine (11 sources) Muscle Relaxant Start: 04-15-2024 cyclobenzaprin e Active PO April 15, 2024 12:00am Start: 01-19-2024 take 1 tablet by maciej th in [...] 12/28/2022 Active FLUoxetine 20 mg oral capsule (14 sources) Serotonin Reuptake Inhibitor Start: 10-30-2023 take 1 capsule by mouth once daily Fluoxetine (Prozac) 20 mg capsule Active 20 MG PO Daily October 30, 2023 12:00am fluticasone 0.05 mg/inh Nasal [place] (5 sources) Start: 07-28-2019 fluticasone 0.05 mg/inh Nasal [place] Nasal, Daily, Refill(s) 0 Start Date: 07/28/19 Status: Ordered gabapentin (3 sources) Anti-epileptic Agent Start: 04-15-2024 gabapentin Active PO April 15, 2024 12:00am gabapentin (Neur ontin) 100 MG capsule Take by mouth Active 3 ml insulin glargine 100 unt/ml pen injector (20 sources) Insulin Analog Start: 08-09-2023 End: 08-08-2024 insulin glargine (Lantus SoloStar) 100 UNIT/ML pen Indications: Type 2 diabetes mellitus with diabetic polyneuropathy, with long-term current use of insulin ([facility]) Inject 60 Units under the [...] long-term current use of insulin ([facility]) Inject 60 Units under the [...] long-term current use of insulin (CMS/[facility]) INJECT 8-15 UNITS BREAKFAST, 20 [...] Status: Ordered ketoconazole 20 mg/ml topical cream (3 sources) Azole Antifungal Start: 08-09-2023 Ketoconazole Active 1 APPLIC TOPICAL Twice daily August 09, 2023 1:00am lisinopril 10 mg oral tablet (20 sources) [...] Active loperamide hydrochloride 2 mg oral capsule (15 sources) Opioid Agonist Start: 04-27-2023 End: 03-27-2024 take 2 mg by mouth twice daily Loperamide Active 2 MG PO Twice daily 60 30 March 27, 2024 9:17am Start: 04-27-2023 End: 07-30-2023 take 2 mg by mouth every two hours Loperamide Active 2 MG PO Q2H April 27, 2023 12:00am Start: 12-10-2019 take 1 capsule by mo [facility] twice daily Loperamide HCl 2 MG 1 CAPSULE Orally twice daily for 30 days Nov, Active magnesium oxide 400 mg oral tablet (20 sources) Start: 08-09-2023 take 400 mg by mouth once daily Magnesium Oxide Active 400 MG PO Daily August 09, 2023 1:00am Start: 06-20-2023 take 1 tablet by maciej th once daily magnesium oxide (Mag-Ox) 400 (240 Mg) MG tablet Indications: Hypomagnesemia TAKE 1 TABLET BY MOUTH DAILY 30 tablet 5 06/20/2023 Active metFORMIN (17 sources) Biguanide Start: 03-31-2019 metformin Oral , [...] the morning. Active take 1 tablet by maciej th [...] PO Daily July 24, 2022 12:00am Semaglutide (3 sources) Start: 08-09-2023 Semaglutide (O zempic) 0.25 [...] long-term current use of insulin (CMS/HCC) Inject 1 mg under the skin 1 (one) time per week 9 mL 3 10/30/2023 10/29/2024 Active Semaglutide,0.25 or 0.5MG/DOS, (Ozempic, 0.25 or 0.5 MG/DOSE,) 2 MG/3ML solution pen-injector (4 sources) Start: 07-30-2023 Semaglutide,0.25 or 0.5MG/DOS, (Ozempic, 0.25 or 0.5 MG/DOSE,) 2 MG/3ML solution pen-injector Indications: Type 2 diabetes mellitus with diabetic polyneuropathy, with long-term current use of insulin (CMS/HCC) Inject 0.5 mg under the skin 1 (one) time per week 9 mL 3 07/30/2023 Active simvastatin 40 mg oral tablet (20 sources) HMG-CoA Reductase Inhibitor Start: 03-31-2019 simvastatin Oral, Refills(s) 0 Start Date: 03/31/19 Status: Ordered Start: 01-30-2019 take 40 mg by mouth once daily in the evening Simvastatin Active 40 MG PO Every evening January 30, 2019 12:00am spironolactone 50 mg oral tablet (14 sources) Aldosterone Antagonist Start: 12-18-2023 take 1 [...] Drug Class(es) Dates Sig (Normalized) Sig (Original) [id number] 200 actuat albuterol 0.09 mg/actuat metered dose inhaler (2 sources) beta2-Adrenergic Agonist Start: 12-22-2020 End: 08-15-2023 take 2 puff(s) by inhalation every four hours as needed for wheezing albuterol (PROVENTIL HFA;VENTOLIN HFA) 90 mcg/actuation inhaler Indications: Chronic obstructive pulmonary disease, unspecified COPD type ([facility]) Inhale 2 puffs every 4 (four) hours as needed for wheezing. 18 g 11 12/22/2020 08/15/2023 Discontinued (Discontinued by another clinician) clindamycin 300 mg oral capsule (5 sources) Lincosamide Antibacterial Start: 01-28-2021 take 2 capsules by mouth every twelve hours Clindamycin HCl 300 MG 2 capsules Orally bid for 10 day(s) Jan, Not-Taking dibucaine 0.01 mg/mg rectal ointment (7 sources) Standardized Chemical Allergen Start: 12-08-2020 End: 03-14-2021 Dibucaine Discontinued 1 APPLIC [place] Four times daily 56 December 08, 2020 12:00am March 14, 2021 12:08pm dicyclomine hydrochloride 20 mg oral tablet (7 sources) Anticholinergic Start: 02-11-2020 End: 12-08-2020 take 20 mg by mouth three times daily Dicyclomine Discontinued 20 MG PO Three times daily February 11, 2020 12:00am December 08, 2020 9:09am docusate sodium 100 mg oral capsule (7 sources) Start: 12-08-2020 End: 03-14-2021 take 1 capsule by mouth once daily Docusate Sodium (Sof-Lax) 100 mg capsule Discontinued 100 MG PO Daily 60 December 08, 2020 10:33am March 14, 2021 12:08pm fluticasone propionate 0.05 mg/actuat metered dose nasal spray (17 sources) Corticosteroid Start: 02-11-2020 End: 07-24-2022 Fluticasone Propionate (Flonase Allergy Relief) 50 mcg/actuation [place],Suspension Discontinued 1 SPRAY INTRANASAL Daily February 11, 2020 12:00am July 24, 2022 1:24pm Start: 07-28-2019 fluticasone 0. 05 mg/inh Nasal [place] Nasal, Daily, Refill(s) 0 Start Date: 07/28/19 [...] day Not-Taking furosemide 40 mg oral tablet (11 sources) Loop Diuretic Start: 12-18-2022 End: 10-30-2023 take 40 mg by mouth once daily Furosemide Discontinued 40 MG PO Daily April 27, 2023 1:00am October 30, 2023 1:48pm Furosemide Activ e glipiZIDE 10 mg oral tablet (7 sources) Sulfonylurea Start: 01-30-2019 End: 08-18-2020 take 10 mg by mouth once daily Glipizide Discontinued 10 MG PO Daily January 30, 2019 12:00am August 18, 2020 12:28pm lansoprazole 30 mg delayed release oral capsule (20 sources) Proton Pump Inhibitor Start: 03-31-2019 lansoprazole Oral, Daily, Refills(s) 0 Start Date: 03/31/19 Status: Ordered Start: 01-30-2019 End: 03-17-2024 take 30 mg by mouth twice daily Lansoprazole Discontinued 30 MG PO Twice daily 60 30 March 04, 2024 2:43pm March 17, 2024 10:40am Start: 01-30-2019 take 30 mg by mouth once daily Lansoprazole Active 30 MG PO Daily January 29, 2019 11:00pm loratadine 10 mg oral tablet (7 sources) Start: 12-08-2020 End: 03-14-2021 take 1 tablet by mouth once daily Loratadine (Claritin) 10 mg Tablet Discontinued 10 MG PO Daily December 08, 2020 12:00am March 14, 2021 12:08pm Magnesium (7 sources) Start: 01-30-2019 End: 08-09-2023 take 400 [...] day(s) Not-Taking oxaprozin 600 mg oral tablet (6 sources) Nonsteroidal Anti-inflammatory Drug Start: 04-27-20 End: [...] Active pyridostigmine bromide 60 mg oral tablet (7 sources) Start: 01-30-2019 End: 08-18-2020 take 60 mg by mouth three times daily Pyridostigmine [place] Discontinued 60 MG PO Three times daily January 30, 2019 12:00am August 18, 2020 12:30pm Semaglutide (Rybelsus) 14 mg tablet (3 sources) Start: 07-24-2022 End: 08-09-2023 take 1 [...] 2023 11:01am sucralfate 1000 mg oral tablet (7 sources) Aluminum Complex Start: 02-11-2020 End: 03-14-2021 take 1 g by mouth before mealtime Sucralfate Discontinued 1 GM PO before meals February 11, 2020 12:00am March 14, 2021 12:09pm tamsulosin hydrochloride 0.4 mg oral capsule (9 sources) alpha-Adrenergi c Nirav Start: 01-30-2019 End: [...] Onset: 4 10-11-2023 Chronic Biliary tract disease (7 sources) Common bile duct calculus; 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: [Calculus [...] 0 12-04-2022 Chronic Deficiency and other anemia (12 sources) Iron deficiency anemia; 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: [Iron deficiency [...] Other aftercare (1 source) 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; 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: [OTH [facility] CURRENT DRUG THERAPY] Onset: 3 Episodic Other [...] syndrome with diarrhea] Chronic Other gastrointestinal disorders (7 sources) Acquired arteriovenous malformation; 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: [Angiodysplasia of colon with hemorrhage] 09-02-2020 Episodic Other gastrointestinal disorders (12 sources) Dysphagia; Translations: [Dysphagia, unspecified] 01-30-2019 Episodic Other gastrointestinal disorders (12 sources) Diarrhea; Translations: [Diarrhea, unspecified] 01-30-2019 Episodic Other gastrointestinal disorders (5 sources) Esophageal dysphagia; Translations: [Dysphagia, unspecified] Episodic Other gastrointestinal disorders (7 sources) Diarrhea, unspecified; Translations: [Diarrhea] Onset: 3 Episodic Other gastrointestinal disorders (1 source) Dysphagia, unspecified Episodic Other gastrointestinal disorders (1 source) Other specified symptoms and signs involving the digestive system and abdomen Episodic Other gastrointestinal disorders (1 source) Constipation alternates with diarrhea; Translations: [Other specified symptoms and signs involving the digestive system and abdomen] 04-15-2024 Episodic Other nervous system disorders (13 sources) [...] sources) Long-term current use of insulin; 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] Onset: 12-04-2022 12-04-2022 Episodic Other aftercare (9 sources) Long-term current use of drug therapy; Translations: [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] Onset: 08-29-2023 08-29-2023 Episodic [...] Anion gap [Moles/Vol] 9 mmol/L Normal 5-15 [facility] Comment on above: Performed By: #### C BCA, BMP, PINR #### [facility] ([id number]) [address], [address] [place] [address] Calcium [Mass/Vol] 9.7 mg/dL Normal 8.5-10.5 [facility] Comment on above: Performed By: #### C BCA, BMP, PINR #### [facility] ([id number]) [address], [address] [place] [address] Chloride [Moles/Vol] 99 mmol/L Normal 98-109 [facility] Comment on above: Performed By: #### C BCA, BMP, PINR #### [facility] ([id number]) [address], [address] [place] [address] CO2 [Moles/Vol] 23 mmol/L Normal 22-32 [facility] Comment on above: Performed By: #### C BCA, BMP, PINR #### [facility] ([id number]) [address], [address] [place] [address] Creatinine [Mass/Vol] 1.60 mg/dL High 0.60-1.30 [facility] Comment on above: Result Comment: METH OD TRACEABLE TO IDMS STANDARD Performed By: #### C BCA, BMP, PINR #### [facility] ([id number]) [address] [address] [place] [address] GFR/1.73 sq M.predicted among non-blacks MDRD (S/P/Bld) [Vol rate/Area] 47 mL/min/{1.73_m2} Low >59 [facility] Comment on above: Result Comment: Reported eGFR is based on the CKD-EPI 2020 equation that does not use a race coefficient. Performed By: #### C FLIP BMP, PINR #### [facility] ([id number]) [address] [place] [address] Glucose [Mass/Vol] 210 mg/dL High 65-99 [facility] Comment on above: Performed By: #### C FLIP BMP, PINR #### [facility] ([id number]) [address] [address] Potassium [Moles/Vol] 5.9 mmol/L High 3.5-5.0 [facility] Comment on above: Performed By: #### C TORI CASTELAN, PINR #### [facility] ([id number]) [address] [address] [place] [address] Sodium [Moles/Vol] 131 mmol/L Low 134-146 [facility] Comment on above: Performed By: #### C FLIP BMP, PINR #### [facility] ([id number]) [address] [address] Urea nitrogen [Mass/Vol] 55 mg/dL High 5-27 [facility] Comment on above: Performed By: #### C FLIP BMP, PINR #### [facility] ([id number]) [address] [address] [place] [address] CBC AND AUTO DIFFon 03-18-20 24 ABSOLUTE BASOPHIL 0.1 X10E9/L Normal 0.0-0.2 [facility] Comment on above: Performed By: #### C BCA, BMP, PINR #### [facility] ([id number]) [address], [address] [place] [address] ABSOLUTE NEUTROPHIL 10.1 X10E9/L High 1.5-6.6 [facility] Comment on above: Performed By: #### C BCA, BMP, PINR #### [facility] ([id number]) [address], [address] [place] [address] Basophils/100 WBC (Bld) 0.4 % Normal [facility] Comment on above: Performed By: #### C FLIP, BMP, PINR #### [facility] ([id number]) [address], [address] [place] [address] Eosinophils (Bld) [#/Vol] 0.1 10*3/uL Normal 0.0-0.4 [facility] Comment on above: Performed By: #### C BCA, BMP, PINR #### [facility] ([id number]) [address], [address] [place] [address] Eosinophils/100 WBC (Bld) 0.5 % Normal [facility] Comment on above: Performed By: #### C BCA, BMP, PINR #### [facility] ([id number]) [address], [address] [place] [address] Erythrocyte distribution width (RBC) [Ratio] 14.1 % Normal 11.5-15.0 [facility] Comment on above: Performed By: #### C BCA, BMP, PINR #### [facility] ([id number]) [address], [address] [place] [address] Hematocrit (Bld) [Volume fraction] 42.0 % Normal 39-49 [facility] Comment on above: Performed By: #### C BCA, BMP, PINR #### [facility] ([id number]) [address], [address] [place] [address] Hemoglobin (Bld) [Mass/Vol] 14.3 g/dL Normal 13.0-17.0 [facility] Comment on above: Performed By: #### C TORI CASTELAN, PINR #### [facility] ([id number]) [address], [facility] [address] [place] [address] Lymphocytes (Bld) [#/Vol] 1.8 10*3/uL Normal 1.0-3.5 [facility] Comment on above: Performed By: #### C TORI CASTELAN, PINR #### [facility] ([id number]) [address], [facility] [address] [place] [address] Lymphocytes/100 WBC (Bld) 14.1 % Normal [facility] Comment on above: Performed By: #### C TORI CASTELAN, PINR #### [facility] ([id number]) [address], [facility] [address] [place] [address] MCH (RBC) [Entitic mass] 31.7 pg Normal 27-34 [facility] Comment on above: Performed By: #### C TORI CASTELAN, PINR #### [facility] ([id number]) [address] [address] [place] [address] MCHC (RBC) [Mass/Vol] 34.0 g/dL Normal 32-36 [facility] Comment on above: Performed By: #### C TORI CASTELAN, PINR #### [facility] ([id number]) [address] [address] [place] [address] MCV (RBC) [Entitic vol] 93 fL Normal 80-100 [facility] Comment on above: Performed By: #### C FLIP, BMP, PINR #### [facility] ([id number]) [address] [address] [place] [address] Monocytes (Bld) [#/Vol] 0.5 10*3/uL Normal 0-0.9 [facility] Comment on above: Performed By: #### C FLIP, BMP, PINR #### [facility] ([id number]) [address], [address] [place] [address] Monocytes/100 WBC (Bld) 4.1 % Normal [facility] Comment on above: Performed By: #### C FLIP, BMP, PINR #### [facility] ([id number]) [address], [facility] [address] [place] [address] Neutrophils/100 WBC (Bld) 80.9 % Normal [facility] Comment on above: Performed By: #### C FLIP, BMP, PINR #### [facility] ([id number]) [address], [address] [place] [address] Platelet mean volume (Bld) [Entitic vol] 7.4 fL Normal 7-12 [facility] Comment on above: Performed By: #### C FLIP, BMP, PINR #### [facility] ([id number]) [address], [facility] [address] [place] [address] Platelets (Bld) [#/Vol] 171 10*3/uL Normal 150-450 [facility] Comment on above: Performed By: #### C FLIP, BMP, PINR #### [facility] ([id number]) [address], [address] [place] [address] RBC COUNT 4.51 X10E12/L Normal 4.10-5.70 [facility] Comment on above: Performed By: #### C FLIP, BMP, PINR #### [facility] ([id number]) [address], [address] [place] [address] WBC (Bld) [#/Vol] 12.5 10*3/uL High 4.0-11.0 [facility] Comment on above: Performed By: #### C FLIP, BMP, PINR #### [facility] ([id number]) [address] [place] [address] CBC W Auto Differential pane l (Bld)on 03-18-2024 ABSOLUTE BASOPHIL 0.1 [facility] Comment on above: PERFORMED AT [facility] [address],[place] [address] Basophils/100 WBC (Bld) 0.4 % [facility] Eosinophils (Bld) [#/Vol] 0.1 10*3/uL [facility] Eosinophils/100 WBC (Bld) 0.5 % [facility] Erythrocyte distribution width (RBC) [Ratio] 14.1 % 11.5 - 15.0 % [facility] Hematocrit (Bld) [Volume fraction] 42.0 % 39 - 49 % [facility] Hemoglobin (Bld) [Mass/Vol] 14.3 g/dL 13.0 - 17.0 g/dL [facility] review of laboratory results Abnormal [facility] Lymphocytes (Bld) [#/Vol] 1.8 10*3/uL [facility] Lymphocytes/100 WBC (Bld) 14.1 % [facility] MCH (RBC) [Entitic mass] 31.7 pg 27 - 34 pg [facility] MCHC (RBC) [Mass/Vol] 34.0 g/dL 32 - 36 g/dL [facility] MCV (RBC) [Entitic vol] 93 fL [...] (PPP) [Relative time] 1.0 {INR} Normal 0.8-1.1 [facility] Comment on above: Performed By: #### C FLIP, TORI, PINR #### [facility] ([id number]) [address], [address] [place] [address] PT Coag (PPP) [Time] 11.7 s Normal 9.8-13.2 [facility] Comment on above: Performed By: #### C FLIP, TORI, PINR #### [facility] ([id number]) [address], [address] [place] [address] Ambulatory Visit Summaryon 0 02-04-2024 Ambulatory Visit Summary Ambulatory Visit Summary MILAD SEYMOUR :1955 Visit Date:02/04/2024 Ambulatory Visit Instructions Your Diagnosis Personal history of prostate cancer Enlarged prostate with urinary obstruction Your Care Team Attending Physician - NICOLA RAYMUNDO, Peterson Owens Primary Care Physician - DANK CAMPO MD This Is Your Medications List Contact prescribing physician if questions or concerns aspirin (aspirin 81 mg Oral EC Tab) celecoxib fluoxetine (FLUoxetine 20 mg Cap) fluticasone nasal (fluticasone 0.05 mg/inh Nasal [place]) insulin lispro (Insulin Lispro KwikPen 100 units/mL [...] Where: [facility] [address], [place] [phone] Medications What How Much When Instructions Unchanged aspirin (aspirin 81 mg Oral EC Tab) By Mouth Every day Contact prescribing physician if questions or concerns Unchanged celecoxib By Mouth Contact prescribing physician if questions or concerns Unchanged fluoxetine (FLUoxetine 20 mg Cap) 1 Capsules By Mouth Contact prescribing physician if questions or concerns Unchanged fluticasone nasal (fluticasone 0.05 mg/ inh Nasal [place]) Nasal Inhalation Every day Contact prescribing physician [...] (more content not included)... Normal [facility] Urology Office/Clinic Noteon 02-04-2024 Urology Office/Clinic Note [...] 0.4 01/28/24 - 0.14 TRUS/bx 08/2018 - Grant 6 (3+3) x2 and one suspicious. TRUS/bx [...] [facility] [address], [place] [phone] Additional Instructions: 1 yr w/ PSA Patient Education Prostate Cancer Screening Johana Campbell, personally scribed for Dr. Petersen on 02/04/2024 12:50:31. . Documentation recorded by the Johana azul, accurately reflects the services(s) I performed and [...] 1 cap(s), Oral fluticasone 0.05 mg/inh Nasal [place], Nasal, Daily Ilumya 100 mg/mL subcutaneous solution, [...] (more content not included)... Normal [facility] Comment on above: Result Comment: Elec tronically Signed By: Peterson PETERSEN MD\.br\Date and Time Signed: 02/04/24 12:52 EDT\.br\Electronically Co-Signed By: Johana Reeves\.br\Date and Time Co-Signed: 02/04/24 12:50 EDT NM gastric emptying studyon 08-22-2023 NM gastric emptying study [facility] [place] [address] Nuclear Medicine Report Signed Patient: Milad Seymour MR#: [id number] : 1955 Acct:[id number] Age/Sex: 67 / M ADM Date: 08/22/23 Loc: NM Room: Type: [facility] Attending Dr: Kike Bernal MD Copies to: MD Shaheen Ralph Jr, DO Ordering Provider: Kike Bernal MD Date of Service: 08/22/23 [place] gastric emptying study: R11.10 - Vomiting, unspecified [...] Grimes Jr., D.OJitendra08/22/2023 12:21 PM Dictation Location: [place] [address] Transcribed By: [facility] 08/22/23 1221 Dictated By: Shaheen Grimes Jr, DO 08/22/23 1215 Signed By: 08/22/23 1221 Normal [facility] Glucose Poct Glucometerson 0 08-20-2023 Glucose [Mass/Vol] 182 mg/dL Normal [facility] Comment on above: Result Comment: [facility] Glucose Reference Range is dependent on time and content of last meal. Glucose of more than 200 mg/dL in a nonstressed, ambulatory subject supports the diagnosis of Diabetes Mellitus. PERFORMED BY: [address] [place] [place] [address] PATHOLOGIST PROGRAMMER ENGINEERING AND SCIENTIFIC JEANNINE VAZQUEZ M.D. Performed By: #### G LUCI #### Point of Care testing , Glucose [Mass/Vol] 227 mg/dL Normal [facility] Comment on above: Result Comment: [facility] [place] Glucose Reference Range is dependent on time and content of last meal. Glucose of more than 200 mg/dL in a nonstressed, ambulatory subject supports the diagnosis of Diabetes Mellitus. PERFORMED BY: [place] [address] PATHOLOGIST PROGRAMMER ENGINEERING AND SCIENTIFIC JEANNINE VAZQUEZ M.D. Performed By: #### G LULS #### Point of Care testing , XR pre/post mri xrayon 08-19 XR pre/post mri xray [facility] [place] [address] [place], [place] [id number] MRI Report Signed Patient: Milad Seymour MR#: [id number] : 1955 Acct:[id number] Age/Sex: 67 / M ADM Date: 08/20/23 Loc: [place] Room: Type: [facility] Attending Dr: Dank Campo MD Copies to: Dank Campo MD Ordering Provider: Dank Campo MD Date of Service: 08/20/23 MR/MR lumbar spine wo con: [id number] ([id number]) XR/XR pre/post mri xray: PRE LUMBAR MRI [...] Tom Chanel M.D.08/20/2023 1:02 PM Dictation Location: [place] [address] Transcribed By: [facility] 08/20/23 1302 Dictated By: Tom Chanel DO 08/20/23 1250 Signed By: 08/20/23 1302 Normal [facility] HbA1c (Bld) [Mass fraction]o n 07-30-2023 Interpretation and review of laboratory results Abnormal [facility] - Hematology and Cell countson 07-30-2023 HbA1c (Bld) [Mass fraction] 8.9 % [facility] CT shoulder LT w conon 07-24 CT shoulder LT w con [facility] [place] [place] [address] CT Scan Report Signed Patient: Milad Seymour MR#: [id number] : 1955 Acct:[id number] Age/Sex: 67 / M ADM Date: 07/24/23 Loc: XD Room: Type: [facility] Attending Dr: Edd Holden BODY SHOP WORKER-C Copies to: Edd Holden STAMP PRESS OPERATOR Ordering Provider: Edd Holden CNP Date of [...] Kamran Chavira M.D.07/24/2023 1:48 PM Dictation Location: [place] [address] Transcribed By: WOODY 07/24/23 1348 Dictated By: Kamran Chavira II, MD 07/24/23 1336 Signed By: 07/24/23 1348 Normal [facility] FL guided needle placementon 07-24-2023 FL guided needle placement [facility] [place] [address] [place] [address] Fluoroscopy Report Signed Patient: Milad Seymour MR#: [id number] : 1955 Acct:[id number] Age/Sex: 67 / M ADM Date: 07/24/23 Loc: Room: Type: [facility] Attending Dr: Edd Holden BODY SHOP WORKER-C Copies to: Edd Holden STAMP PRESS OPERATOR Ordering Provider: Edd Holden CNP Date of [...] Kamran Chavira M.D.07/24/2023 12:39 PM Dictation Location: [place] [address] Transcribed By: [facility] 07/24/23 1239 Dictated By: Kamran Chavira II, MD 07/24/23 1231 Signed By: 07/24/23 1239 Normal [facility] Capillary blood glucose deb urement by glucometer (mass/volume)Ordered By: Kike Bernal on 04-27-2023 Glucose [Mass/Vol] 189 mg/dL Normal [facility] Comment on above: Random Glucose Refer ence Range is dependent on time and content of last meal. Glucose of more than 200 mg/dL in a nonstressed, ambulatory subject supports the diagnosis of Diabetes Mellitus. Result Comment: [place] [facility] Glucose Reference Range is dependent on time and content of last meal. Glucose of more than 200 mg/dL in a nonstressed, ambulatory subject supports the diagnosis of Diabetes Mellitus. Performed By: #### G LUCI #### Point of Care testing , Glucose Poct Glucometerson 1 06-27-2022 Commemt1 Glu2: Cleaned Meter Normal [facility] Comment on above: Result Comment: PERF ORMED BY: [facility] [address] [place] [address] PATHOLOGIST PROGRAMMER ENGINEERING AND SCIENTIFIC JEANNINE VAZQUEZ M.D. Performed By: #### G LUCI #### Point of Care testing , William 04-27-2023 L ------ Specimen: [id number] Received: 04/27/23 Status: MASSIEL Claudiowu Num: [id number] Spec Type: Surgical Subm Dr: Kike Bernal MD Tissues: A Colon Biopsy (RANDOM COLON) Procedures: HE/2, Gross/Micro L4 Age/ Patient Sex Location Account Attending Physician Milad Seymour/Sonia [id number] Kike Bernal MD SPEC NUM: [id number] RECD: 04/27/23 STATUS: MASSIEL CLAUDIOWu NUM: [id number] KURT: 04/27/23 DR: Kike Bernal MD ENTERED: [...] microscopic examination confirms the diagnosis. CPT Codes 23173 Specimen: [id number] Received: 04/27/23 Status: MASSIEL Junior Num: [id number] Spec Type: Surgical Subm Dr: Kike Bernal MD Tissues: A Colon Biopsy (RANDOM COLON) Procedures: HE/Rianna, Gross/Micro L4 Patient: Milad Seymour [id number] (Continued) Signed (signature on file) Kaushal Magana MD 04/30/23 1325 Normal [facility] No Panel InformationOrdered By: Kike Bernal on 04-27-2023 Bedside Glucose Comment Glu2: cleaned meter [facility] Patient Educationon 02-13-20 Patient Education [...] (more content not included)... Normal [facility] Reminderson 02-12-2023 Reminders - From: Johana Reeves To: NOREEN Petersen; Sent: 02/12/2023 17:56:32 EDT Show up: 01/13/2024 17:56:00 EDT Subject: PSA prior to appt Reminder Message Please Remember to:_have pt get PSA done prior to appt in 1 year. Normal [facility] Urology Office/Clinic Noteon 02-12-2023 Urology Office/Clinic Note [...] Peterson Owens, URL [facility] [address] [place] [phone] Additional Instructions: 1 yr w/ PSA Patient [...] TID celecoxib, Oral fluticasone 0.05 mg/inh Nasal [place], Nasal, Daily Insulin Lispro KwikPen 100 units/mL [...] used for this result was chemiluminescence using [employer]'s Access Hybritech PSA reagent. PSA Total 0.5 ng/mL 11/28/2022 11:31 EDT The concentration of P (more content not included)... Normal [facility] Comment on above: Result Comment: Elec tronically Signed By: NICOLA RAYMUNDO, Peterson Owens\.french\Date and Time Signed: 02/12/23 10:15 EDT\.br\Electronically Co-Signed By: Johana Reeves\.french\Date and Time Co-Signed: 02/12/23 10:14 EDT Ambulatory Visit Summaryon 0 02-06-2023 Ambulatory Visit Summary MILAD SEYMOUR :1955 Visit Date:02/06/2023 Ambulatory Visit Instructions Your Diagnosis Prostate cancer Your Care Team Attending Physician - NICOLA RAYMUNDO, DEJUAN Primary Care Physician - DANK CAMPO MD This Is Your Medications List aspirin (aspirin 81 mg Oral EC Tab) baclofen celecoxib fluticasone nasal (fluticasone 0.05 mg/inh Nasal [place]) lansoprazole lisinopril metformin metoprolol (metoprolol 25 mg ER Tab) simvastatin Procedures Performed Laparoscopic cholecystectomy (03/2021), Radiation (01/16/2020), Transrectal biopsy of prostate using ultrasound (US) guidance (09/23/2019), Transrectal biopsy of prostate using ultrasound (US) guidance (09/03/2018), Appendectomy, Colonoscopy, Tonsillectomy. What to do next Scheduled Follow-Up Appointments Sunday 9:15 AM EDT With: NICOLA RAYMUNDO, Peterson Owens Where: [facility] CHEMISTRYOrdered By: SYSTEM SYSTEM on 02-06-2023 Prostate specific Ag [Mass/Vol] 0.4 ng/mL Normal 0.1 - 3.5 ng/mL [facility] Remisol PSA Totalon 02-06-2023 Prostate specific Ag [Mass/Vol] 0.4 ng/mL Normal 0.1-3.5 [facility] Comment on above: Result Comment: The concentration of PSA determined by different manufacturers can vary due to differences in assay methods and reagent specificity. Values obtained from different assay methods cannot be used interchangeably. The methodology used for this result was chemiluminescence using [employer]'s Access Hybritech PSA reagent. Performed By: #### 1 [id number] #### [facility] [address] [place] [address] PANCREATIC ELASTASE FECALon 09-24-2022 Pancreatic Elastase, Fecal 467 ug Elast./g Normal >200 [facility] Comment on above: Result Comment: Nicolle re Pancreatic Insufficiency: <100 Moderate Pancreatic Insufficiency: 100 - 200 Normal: >200 Performed By: #### C PEPT #### [facility] [address] [place] [address] Dr. Stewart De La Cruz POTASSIUM, FECALon 3 Potassium, Stool 57 mmol/L Normal [facility] Comment on above: Result Comment: INTE RPRETIVE INFORMATION: Fecal Potassium A reference interval has not been established for fecal specimens. This test was developed and its performance characteristics determined by [employer]. It has not been cleared or approved by the [place] Food and Drug Administration. This test was performed in a CLIA certified laboratory and is intended for clinical purposes. Performed By: #### C PEPT #### [facility] [address] [place] [address] Dr. Stewart De La Cruz SODIUM, FECALon 09-17-2022 Sodium, Stool 65 mmol/L Normal [facility] Comment on above: Result Comment: INTE RPRETIVE INFORMATION: Fecal Sodium A reference interval has not been established for fecal specimens. This test was developed and its performance characteristics determined by [employer]. It has not been cleared or approved by the [place] Food and Drug Administration. This test was performed in a CLIA certified laboratory and is intended for clinical purposes. Performed By: #### F ECALN #### [facility] [address] [place] [address] Dr. Stewart De La Cruz CALPROTECTIN, FECALon 2022 Calprotectin, Fecal 43 ug/g Normal 0-120 [facility] Comment on above: Result Comment: Conc entration Interpretation Follow-Up <16 - 50 ug/g Normal None >50 -120 ug/g Borderline Re-evaluate in 4-6 weeks >120 ug/g Abnormal Repeat as clinically indicated Performed By: #### C PEPT #### [facility] [address] [place] [address] Dr. Stewart De La Cruz C-PEPTIDE, SERUMon 3 C-Peptide, Serum 6.5 ng/mL Critically high 1.1-4.4 [facility] Comment on above: Result Comment: C-Pe ptide reference interval is for fasting patients. Performed By: #### C PEPT #### [facility] [address] [place] [address] Dr. Stewart De La Cruz HIV 1 AND 2 WITH REFLEXon HIV Screen 4th Generation wRfx Non-Reactive Normal Non Reactive [facility] Comment on above: Result Comment: HIV Negative HIV-1/HIV-2 antibodies and HIV-1 p24 antigen were NOT detected. There is no laboratory evidence of HIV infection. Performed By: #### C PEPT #### [facility] [address] [place] [address] Dr. Stewart De La Cruz INSULINon 09-13-2022 Insulin 13.9 uIU/mL Normal 2.6-24.9 [facility] Comment on above: Performed By: #### C PEPT #### [facility] [address] [place] [address] Dr. Stewart De La Cruz POTASSIUM, FECALon 3 Potassium, Stool QNSMT Normal [facility] Comment on above: Result Comment: Test not performed. One specimen was submitted with requests for multiple tests. The requested testing requires a separate specimen for each test requested. contacted Keesha at your facility on 09-13-2022 Performed By: #### C PEPT #### [facility] [address] [place] [address] Dr. Stewart De La Cruz SODIUM, FECALon 09-13-2022 Sodium, Stool QNSMT Normal [facility] Comment on above: Result Comment: Test not performed. One specimen was submitted with requests for multiple tests. The requested testing requires a separate specimen for each test requested. contacted Keesha at your facility on 09-13-2022 Performed By: #### F ECALN #### [facility] [address] [place] [address] Dr. Stewart De La Cruz CBC AUTO DIFFon 09-12-2022 BASO # 0.1 103/ul Normal 0.0-0.1 [facility] Comment on above: Performed By: #### C PEPT #### [facility] [address] [place] [address] Dr. Stewart De La Cruz Basophils/100 WBC (Bld) 1.2 % Normal 0.2-2.0 [facility] Comment on above: Performed By: #### C PEPT #### [facility] [address] [place] [address] Dr. Stewart De La Cruz EO # 0.3 103/ul Normal 0.0-0.7 [facility] Comment on above: Performed By: #### C PEPT #### [facility] [address] [place] [address] Dr. Stewart De La Cruz Eosinophils/100 WBC (Bld) 4.5 % Normal 0.9-7.0 [facility] Comment on above: Performed By: #### C PEPT #### [facility] [address] [place] [address] Dr. Stewart De La Cruz Erythrocyte distribution width (RBC) [Ratio] 12.9 % Normal 11.0-15.0 [facility] Comment on above: Performed By: #### C PEPT #### [facility] [address] [place] [address] Dr. Stewart De La Cruz Hematocrit (Bld) [Volume fraction] 44.6 % Normal 42.0-54.0 [facility] Comment on above: Performed By: #### C PEPT #### [facility] [address] [place] [address] Dr. Stewart De La Cruz Hemoglobin (Bld) [Mass/Vol] 14.9 g/dL Normal 14.0-18.0 [facility] Comment on above: Performed By: #### C PEPT #### [facility] [address] [place] [address] Dr. Stewart De La Cruz IG # 0.03 10e3/ul Normal 0.00-0.03 [facility] Comment on above: Performed By: #### C PEPT #### [facility] [address] [place] [address] Dr. Stewart De La Cruz IG % 0.5 % Normal 0.0-0.5 [facility] Comment on above: Performed By: #### C PEPT #### [facility] [address] [place] [address] Dr. Stewart De La Cruz LYMPH # 1.1 103/ul Critically low 1.2-3.8 [facility] Comment on above: Performed By: #### C PEPT #### [facility] [address] [place] [address] Dr. Stewart De La Cruz Lymphocytes/100 WBC (Bld) 18.5 % Critically low 20.5-60.0 [facility] Comment on above: Performed By: #### C PEPT #### [facility] [address] [place] [address] Dr. Stewart De La Cruz MANUAL DIFF REQ NO Normal [facility] Comment on above: Performed By: #### C PEPT #### [facility] [address] [place] [address] Dr. Stewart De La Cruz MCH (RBC) [Entitic mass] 29.2 pg Normal 25.9-34.0 [facility] Comment on above: Performed By: #### C PEPT #### [facility] [address] [place] [address] Dr. Stewart De La Cruz MCHC (RBC) [Mass/Vol] 33.4 g/dL Normal 29.9-35.2 [facility] Comment on above: Performed By: #### C PEPT #### [facility] [address] [place] [address] Dr. Stewart De La Cruz MCV (RBC) [Entitic vol] 87.5 fL Normal 80.0-94.0 [facility] Comment on above: Performed By: #### C PEPT #### [facility] [address] [place] [address] Dr. Stewart De La Cruz MONO # 0.4 103/ul Normal 0.3-0.8 [facility] Comment on above: Performed By: #### C PEPT #### [facility] [address] [place] [address] Dr. Stewart De La Cruz Monocytes/100 WBC (Bld) 6.8 % Normal 1.7-12.0 [facility] Comment on above: Performed By: #### C PEPT #### [facility] [address] [place] [address] Dr. Stewart De La Cruz NEUT # 4.2 103/ul Normal 1.4-6.5 [facility] Comment on above: Performed By: #### C PEPT #### [facility] [address] [place] [address] Dr. Stewart De La Cruz Neutrophils/100 WBC (Bld) 68.5 % Normal 43.0-75.0 [facility] Comment on above: Performed By: #### C PEPT #### [facility] [address] [place] [address] Dr. Stewart De La Cruz Platelet mean volume (Bld) [Entitic vol] 9.8 fL Normal 9.5-13.5 [facility] Comment on above: Performed By: #### C PEPT #### [facility] [address] [place] [address] Dr. Stewart De La Cruz PLT 133 103/ul Critically low 150-450 [facility] Comment on above: Performed By: #### C PEPT #### [facility] [address] [place] [address] Dr. Stewart De La Cruz RBC 5.10 106/ul Normal 4.70-6.10 [facility] Comment on above: Performed By: #### C PEPT #### [facility] [address] [place] [address] Dr. Stewart De La Cruz WBC 6.1 103/ul Normal 4.0-11.0 [facility] Comment on above: Performed By: #### C PEPT #### [facility] [address] [place] [address] Dr. Stewart De La Cruz CRPon 09-12-2022 CRP [Mass/Vol] mg/L Normal <=1.0 [facility] Comment on above: Performed By: #### C RP #### [facility] [address] [place] [address] Dr. Stewart De La Cruz GLYCOHEMOGLOBIN A1Con 2022 ADA RECOMMENDATION SEE BELOW Normal [facility] Comment on above: Result Comment: ADA RECOMMENDED LIMIT 4.0 - 6.0 ADA THERAPEUTIC TARGET < 7.0 ACTION SUGGESTED > 7.0 Performed By: #### A 1C #### [facility] [address] [place] [address] Dr. Stewart De La Cruz Glucose [Mass/Vol] 278 mg/dL Normal [facility] Comment on above: Performed By: #### A 1C #### [facility] [address] [place] [address] Dr. Stewart De La Cruz HbA1c (Bld) [Mass fraction] 11.3 % Critically high 4.5-6.2 [facility] Comment on above: Performed By: #### A 1C #### [facility] [address] [place] [address] Dr. Stewart De La Cruz PROF CHEM 8 (BAS METB)on Anion gap [Moles/Vol] 16.9 mmol/L Normal [facility] Comment on above: Performed By: #### C PEPT #### [facility] [address] [place] [address] Dr. Stewart De La Cruz Calcium [Mass/Vol] 9.3 mg/dL Normal 8.5-10.1 [facility] Comment on above: Performed By: #### C PEPT #### [facility] [address] [place] [address] Dr. Stewart De La Cruz Chloride [Moles/Vol] 103 mmol/L Normal 98-107 [facility] Comment on above: Performed By: #### C PEPT #### [facility] [address] [place] [address] Dr. Stewart De La Cruz CO2 [Moles/Vol] 26.0 mmol/L Normal 21.0-32.0 [facility] Comment on above: Performed By: #### C PEPT #### [facility] [address] [place] [address] Dr. Stewart De La Cruz Creatinine [Mass/Vol] 1.43 mg/dL Critically high 0.70-1.30 [facility] Comment on above: Performed By: #### C PEPT #### [facility] [address] [place] [address] Dr. Stewart De La Cruz EGFR-AF GREEK 60 mL/min/1.73m2 Normal >=60 [facility] Comment on above: Performed By: #### C PEPT #### [facility] [address] [place] [address] Dr. Stewart De La Cruz EGFR-NON AF GREEK 49 mL/min/1.73m2 Critically low >=60 [facility] Comment on above: Performed By: #### C PEPT #### [facility] [address] [place] [address] [address] Stewart De La Cruz Glucose [Mass/Vol] 293 mg/dL Critically high 74-106 [facility] Comment on above: Performed By: #### C PEPT #### [facility] [address] [place] [address] [address] Stewart De La Cruz Potassium [Moles/Vol] 4.9 mmol/L Normal 3.5-5.1 [facility] Comment on above: Performed By: #### C PEPT #### [facility] [address] [place] [address] [address] Stewart De La Cruz Sodium [Moles/Vol] 141 mmol/L Normal 136-145 [facility] Comment on above: Performed By: #### C PEPT #### [facility] [address] [place] [address] [address] Stewart De La Cruz Urea nitrogen [Mass/Vol] 32.0 mg/dL Critically high 7.0-18.0 [facility] Comment on above: Performed By: #### C PEPT #### [facility] [address] [place] [address] [address] Stewart De La Cruz Urea nitrogen/Creatinine [Mass ratio] 22.4 mg/mg Normal [facility] Comment on above: Performed By: #### C PEPT #### [facility] [address] [place] [address] [address] Stewart De La Cruz SED RATE [facility] 2022 SED RATE 17 mm/hr Normal <=20 [facility] Comment on above: Performed By: #### S EDR #### [facility] [address] [place] [address] [address] Stewart De La Cruz RAD EGD - documentation only do not orderon 07-25-2022 RAD EGD - documentation only do not order [employer] Other Glucose Glucometer (dC) [M ass/Vol]Ordered By: Kike Bernal on 07-24-2022 Glucose [Mass/Vol] 275 mg/dL [facility] Comment on above: Random Glucose Refer ence Range is dependent on time and content of last meal. Glucose of more than 200 mg/dL in a nonstressed, ambulatory subject supports the diagnosis of Diabetes Mellitus. GLYCOHEMOGLOBIN A1Con 2021 ADA RECOMMENDATION SEE BELOW Normal [facility] Comment on above: Result Comment: ADA RECOMMENDED LIMIT 4.0 - 6.0 ADA THERAPEUTIC TARGET < 7.0 ACTION SUGGESTED > 7.0 Performed By: #### A 1C #### [facility] [address] [place] [address] Dr. Stewart De La Cruz Glucose [Mass/Vol] 235 mg/dL Normal [facility] Comment on above: Performed By: #### A 1C #### [facility] [address] [place] [address] Dr. Stewart De La Cruz HbA1c (Bld) [Mass fraction] 9.8 % Critically high 4.5-6.2 [facility] [place] [facility] Comment on above: Performed By: #### A 1C #### [facility] [address] [place] [address] Dr. Stewart De La Cruz GLYCOHEMOGLOBIN A1Con 2021 ADA RECOMMENDATION SEE BELOW Normal [facility] Comment on above: Result Comment: ADA RECOMMENDED LIMIT 4.0 - 6.0 ADA THERAPEUTIC TARGET < 7.0 ACTION SUGGESTED > 7.0 Performed By: #### A 1C #### [facility] [address] [place] [address] Dr. Stewart De La Cruz Glucose [Mass/Vol] 197 mg/dL Normal [facility] Comment on above: Performed By: #### A 1C #### [facility] [address] [place] [address] Dr. Stewart De La Cruz HbA1c (Bld) [Mass fraction] 8.5 % Critically high 4.5-6.2 [facility] [place] [facility] Comment on above: Performed By: #### A 1C #### [facility] [address] [place] [address] Dr. Stewart De La Cruz PSA, FREE AND TOTAL RATIOon 01-28-2022 % Free PSA 30.0 % Normal [facility] [place] [facility] Comment on above: Result Comment: The [...] men. Performed By: #### P SAFREE #### [facility] [address] [address] [address] Stewart De La Cruz Prostate specific Ag [Mass/Vol] 0.1 ng/mL Normal 0.0-4.0 [facility] [place] [facility] Comment on above: Result Comment: Nina PUCKETT methodology. . According to the [place] [employer], Serum PSA should decrease and [...] disease. Performed By: #### P SAFREE #### [facility] [address] [address] [address] Stewart De La Cruz PSA, Free 0.03 ng/mL Normal N/A [facility] [place] [facility] Comment on above: Result Comment: Nina PUCKETT methodology. Performed By: #### P SAFREE #### [facility] [address] [address] [address] Stewart De La Cruz GLYCOHEMOGLOBIN A1Con 2021 ADA RECOMMENDATION SEE BELOW Normal [facility] Comment on above: Result Comment: ADA RECOMMENDED LIMIT 4.0 - 6.0 ADA THERAPEUTIC TARGET < 7.0 ACTION SUGGESTED > 7.0 Performed By: #### A 1C #### [facility] [address] [address] [address] Stewart De La Cruz Glucose [Mass/Vol] 192 mg/dL Normal [facility] Comment on above: Performed By: #### A 1C #### [facility] [id number] Stewart De La Cruz HbA1c (Bld) [Mass fraction] 8.3 % Critically high 4.5-6.2 [facility] Comment on above: Performed By: #### A 1C #### [facility] [address] [place], [place] [address] Dr. Stewart De La Cruz CNOVon 02-01-2021 CNOV Office Visit (RADTSA ) -- MILAD SEYMOUR ([id number]) 1955 M Date Time Provider Department 02/01/21 [...] Fawad Diaz MD cc: Dank Campo MD ([facility]) [address] [place] [address] Dr. Petersen Portions of the above note extracted and edited from previous visit as well as active information included in the EMR. Referring Provider: Fawad DIAZ [[id number]] Allergies As of Date: 02/01/2021 (No Known Allergies) Date Reviewed: 02/01/2021 Reviewed by: Tila Herrera LPN - Fully Assessed Reason for Visit: Prostate Cancer [590] Primary Visit Diagnosis:Malignant neoplasm of prostate (HCC) [C61] Order(s):PSA/PROSTSPECAG DIAG [SQPSA] Order #: [id number] FUTURE Prescriptions as of 02/03/2021 - aspirin, [...] magnesium) t (more content not included)... Normal [facility] PSA, Diagnosticon 01-25-2021 PSA, Diagnostic 0.29 ng/mL Normal 0.00-2.59 [facility] Comment on above: Result Comment: Sandra manzo PSA test methodology used is the Electrochemiluminescence Immunoassay. Performed By: #### P #### [facility] [address] [place], [place] [address] OBSOLETEon 12-22-2020 OBSOLETE Refill (RADTSA) -- MILAD SEYMOUR ([id number]) 1955 M Date Time Provider Department 12/22/20 [...] Encounter Status:Closed by TILA HERRERA on 01/04/21 [facility] SHARYNOVmaura 11-03-2020 CNOV Office Visit (RADTSA ) -- MILAD SEYMOUR ([id number]) 1955 M Date Time Provider Department 11/03/20 4:00 PM LAB/PORT RADT ADAM COCHRAN During your visit today, we recorded the following information about you: Referring Provider: Fawad DIAZ [[id number]] Allergies As of Date: 11/03/2020 (No Known [...] Encounter Status:Closed by TILA HERRERA on 11/03/20 [facility] Office Visit (RADTSA ) -- LIONMILAD Dalal ([id number]) 1955 M Date Time Provider Department 11/03/20 [...] DIAGNOSIS: Prostate adenocarcinoma, initial PSA 14.65, biopsy Grant score 3 + 3 = 6 (grade [...] Fawad Diaz MD cc: Dank Campo MD ([facility]) [address] [place] [address] Dr. Petersen Referring Provider: Fawad DIAZ [[id number]] Allergies As of Date: 11/03/2020 (No Known Allergies) Date Reviewed: 11/03/2020 Reviewed by: Fawad Diaz MD - Fully Assessed Reason for Visit: Prostate Cancer [590] Primary Visit Diagnosis:Malignant neoplasm of prostate (HCC) [C61] Order(s):PSA/PROSTSPECAG DIAG [SQPSA] Order #: [id number] FUTURE Prescriptions as of 11/03/2020 Sig: TAMSULOSIN [...] 30 mg (more content not included)... Normal [facility] PSA, Diagnosticon 11-01-2020 PSA, Diagnostic 0.27 ng/mL Normal 0.00-2.59 [facility] Comment on above: Result Comment: Sandra manzo PSA test methodology used is the Electrochemiluminescence Immunoassay. Performed By: #### P SA #### [facility] [address] [place], [place] [address] [facility] 10-29-2020 [facility] Tele[facility] (RADTSA) -- MILAD SEYMOUR ([id number]) 1955 M Date Time Provider Department 10/29/20 [...] since completing radiation therapy. Call transferred to [facility] to move up appointment. Dr. Diaz, [...] (HCC) [C61] Order(s):PSA/PROSTSPECAG DIAG [SQPSA] Order #: [id number] FUTURE Prescriptions as of 10/29/2020 Sig: TAMSULOSIN [...] Encounter Status:Closed by TILA HERRERA on 10/29/20 [facility] Giuseppe 10-08-2020 JALILN Telephone (HEMCAILIN) -- LIONMILAD Mulugeta ([id number]) 1955 M Date Time Provider Department 10/08/20 HEATHER BARRIGA During your visit today, we recorded the following information about you: Allergies As of Date: 10/08/2020 (No Known Allergies) Date Reviewed: 07/14/2020 Reviewed by: Joann Richardson - Fully Assessed Reason for Visit: Lab Orders [1688] Primary Visit Diagnosis:Iron deficiency anemia due to chronic blood loss [D50.0] Order(s):CBC + DIFF (FOR REMOTE [facility] USE) [SQRCBCDF] Order #: [id number] FUTURE COMP METABOLIC PANEL [SQCMP] Order #: [id number] FUTURE Prescriptions as of 10/08/2020 Sig: TAMSULOSIN [...] Encounter Status:Closed by TASHA GOOD on 10/14/20 [facility] OBSOLETEon 09-20-2020 OBSOLETE Refill (RADTSA) -- MILAD SEYMOUR ([id number]) 1955 M Date Time Provider Department 09/20/20 [...] Status:Closed by TILA HERRERA on 10/14/20 Normal [facility] Vital Signs Date Time Vital Sign Value Performing Clinician Facility 04-15-2024 09:08-0400 Body height 175.26 cm [facility] 04-15-2024 09:08-0400 Body mass index (BMI) [Ratio] 36.1 kg/m2 [facility] 04-15-2024 09:08-0400 Body weight 111.13 kg [facility] 04-08-2024 10:00-0400 Body height 177.8 cm Rebecca Dias PA Work Phone: [facility] 04-08-2024 10:00-0400 Body mass index (BMI) [Ratio] 35.73 kg/m2 Rebecca Dias PA Work Phone: [facility] 04-08-2024 10:00-0400 Body weight 112.95 kg Rebecca Dias PA Work Phone: [facility] 03-18-2024 08:28-0400 Body height 177.8 cm Rebecca Dias PA Work Phone: [facility] 03-18-2024 08:28-0400 Body mass index (BMI) [Ratio] 35.73 kg/m2 Rebecca Dias PA Work Phone: [facility] 03-18-2024 08:28-0400 Body weight 112.95 kg Rebecca Dias PA Work Phone: [facility] 03-17-2024 10:19-0400 Body height 175.26 cm [facility] 03-17-2024 10:19-0400 Body mass index (BMI) [Ratio] 37 kg/m2 [facility] 03-17-2024 10:19-0400 Body weight 114 [facility] 02-04-2024 11:45-0400 Diastolic blood pressure 74 mm[Hg] Peterson PETERSEN [facility] 02-04-2024 11:45-0400 Heart rate 66 /min Peterson PETERSEN [facility] 02-04-2024 11:45-0400 Respiratory rate 16 /min Peterson PETERSEN [facility] 02-04-2024 11:45-0400 Systolic blood pressure 116 mm[Hg] Peterson PETERSEN [facility] 08-15-2023 13:35-0500 Diastolic blood pressure 60 mm[Hg] Gregoriamyah Ralph WATCH DIAL PRINTER-STAMP PRESS OPERATOR Work Phone: [facility] 08-15-2023 13:35-0500 Systolic blood pressure 107 mm[Hg] Gregoria Sheagel WATCH DIAL PRINTER-STAMP PRESS OPERATOR Work Phone: [facility] [employer] [facility] 08-15-2023 13:33-0500 Body height 175.3 cm Gregoriamyah Valdiviagel WATCH DIAL PRINTER-STAMP PRESS OPERATOR Work Phone: [facility] [employer] [facility] 08-15-2023 13:33-0500 Body mass index (BMI) [Ratio] 36.77 kg/m2 Gregoria Sheagel WATCH DIAL PRINTER-STAMP PRESS OPERATOR [facility] Phone: [facility] 08-15-2023 13:33-0500 Body weight 112.95 kg Gregoria Sheagel WATCH DIAL PRINTER-STAMP PRESS OPERATOR Work Phone: [facility] [employer] [facility] 08-15-2023 13:33-0500 Heart rate 81 /min Gregoria Sheagel WATCH DIAL PRINTER-STAMP PRESS OPERATOR Work Phone: [facility] [employer] [facility] 08-15-2023 13:33-0500 SaO2% (BldA) [Mass fraction] 95 % Gregoriamyah Valdiviagel WATCH DIAL PRINTER-STAMP PRESS OPERATOR Work Phone: [facility] 07-30-2023 11:16-0500 Body height 177.8 cm Ashli Petznick DO Work Phone: [facility] [employer] 07-30-2023 11:16-0500 Body mass index (BMI) [Ratio] 36.16 kg/m2 Ashli Petznick DO Work Phone: [facility] [employer] 07-30-2023 11:16-0500 Body temperature 98.01 [degF] Ashli Petznick DO Work Phone: [facility] 07-30-2023 11:16-0500 Body weight 114.31 kg Ashli Petznick DO Work Phone: [facility] 07-30-2023 11:16-0500 Diastolic blood pressure 62 mm[Hg] Ashli Petznick DO Work Phone: [facility] 07-30-2023 11:16-0500 Heart rate 66 /min Ashli Petznick DO Work Phone: [facility] 07-30-2023 11:16-0500 SaO2% (BldA) [Mass fraction] 97 % Ashli Petznick DO Work Phone: [facility] 07-30-2023 11:16-0500 Systolic blood pressure 116 mm[Hg] Ashli Petznick DO Work Phone: [facility] 07-17-2023 09:22-0500 Diastolic blood pressure 73 mm[Hg] MD Dank Campo Work Phone: [facility] 07-17-2023 09:22-0500 Heart rate 70 /min MD Dank Campo Work Phone: [facility] 07-17-2023 09:22-0500 Respiratory rate 18 /min MD Dank Campo Work Phone: [facility] 07-17-2023 09:22-0500 SaO2% (BldA) [Mass fraction] 97 % MD Dank Campo Work Phone: [facility] 07-17-2023 09:22-0500 Systolic blood pressure 173 mm[Hg] MD Dank Campo Work Phone: [facility] 07-17-2023 09:20-0500 Body height 177.8 cm MD Dank Campo Work Phone: [facility] 07-17-2023 09:20-0500 Body weight 111.13 kg MD Dank Campo Work Phone: [facility] 04-27-2023 12:40-0500 Diastolic blood pressure 68 mm[Hg] MD Dank Campo Work Phone: [facility] 04-27-2023 12:40-0500 Heart rate 75 /min MD Dank Campo Work Phone: [facility] 04-27-2023 12:40-0500 Respiratory rate 16 /min MD Dank Campo Work Phone: [facility] 04-27-2023 12:40-0500 SaO2% (BldA) [Mass fraction] 97 % MD Dank Campo Work Phone: [facility] 04-27-2023 12:40-0500 Systolic blood pressure 110 mm[Hg] MD Dank Campo Work Phone: [facility] 04-27-2023 10:29-0500 Body height 177.8 cm MD Dank Campo Work Phone: [facility] 04-27-2023 10:29-0500 Body weight 113.39 kg MD Dank Campo Work Phone: [facility] 04-10-2023 14:00-0400 Body height 177.8 cm Imad Asaad Other [employer] Other 04-10-2023 14:00-0400 Body mass index (BMI) [Ratio] 36.3 kg/m2 Imad Asaad Other [employer] Other 04-10-2023 14:00-0400 Body weight 114.76 kg Imad Asaad Other [employer] Other 04-10-2023 14:00-0400 Diastolic blood pressure 68 mm[Hg] Imad Asaad Other [employer] Other 04-10-2023 14:00-0400 Systolic blood pressure 113 mm[Hg] Kike Bernal Other [employer] Other 02-12-2023 09:46-0400 Blood Pressure Location Peterson PETERSEN [facility] 02-12-2023 09:46-0400 Diastolic blood pressure 90 mm[Hg] Peterson PETERSEN [facility] 02-12-2023 09:46-0400 Heart rate 68 /min Peterson PETERSEN [facility] 02-12-2023 09:46-0400 Respiratory rate 16 /min Petersonpercy PETERSEN [facility] 02-12-2023 09:46-0400 Systolic blood pressure 138 mm[Hg] Peterson PETERSEN [facility] 07-24-2022 13:52-0500 Diastolic blood pressure 78 mm[Hg] MD Dank Campo Work Phone: [facility] 07-24-2022 13:52-0500 Heart rate 71 /min MD Dank Campo Work Phone: [facility] 07-24-2022 13:52-0500 Respiratory rate 16 /min MD Dank Campo Work Phone: [facility] 07-24-2022 13:52-0500 SaO2% (BldA) [Mass fraction] 96 % MD Dank Campo Work Phone: [facility] 07-24-2022 13:52-0500 Systolic blood pressure 136 mm[Hg] MD Dank Campo Work Phone: [facility] 07-24-2022 12:29-0500 Body height 177.8 cm MD Dank Campo Work Phone: [facility] 07-24-2022 12:29-0500 Body temperature 98 [degF] MD Dank Campo Work Phone: [facility] 07-24-2022 12:29-0500 Body weight 115.66 kg MD Dank Campo Work Phone: [facility] 07-20-2022 10:00-0500 Body height 177.8 cm Imad Asaad Other [employer] [facility] [employer] Other 07-20-2022 10:00-0500 Body mass index (BMI) [Ratio] 36.73 kg/m2 Imad Asaad Other [employer] Other 07-20-2022 10:00-0500 Body weight 116.12 kg Imad Asaad Other [employer] Other 07-20-2022 10:00-0500 Diastolic blood pressure 96 mm[Hg] Imad Asaad Other [employer] Other 07-20-2022 10:00-0500 Systolic blood pressure 170 mm[Hg] Imad Asaad Other [employer] Other 02-03-2022 08:29-0400 Blood Pressure Location Peterson PETERSEN [facility] 02-03-2022 08:29-0400 Diastolic blood pressure 88 mm[Hg] Peterson PETERSEN [facility] 02-03-2022 08:29-0400 Heart rate 75 /min Petersonpercy PETERSEN [facility] 02-03-2022 08:29-0400 Respiratory rate 16 /min [facility] 02-03-2022 08:29-0400 Systolic blood pressure 138 mm[Hg] [facility] En[facility] Encounter Date Encounter Type Care Provider Facility Start: 02-09-2025 ambulatory Peterson Sylvesteri ty:[facility] Start: 04-15-2024 End: 04-15-2024 ambulatory [facility] Work Phone: Start: 04-15-2024 End: 04-15-2024 Patient encounter procedure [facility] Physician [facility] Gastroenterology Work Phone: Start: 04-08-2024 End: 04-08-2024 Bamboo flowsheet Rebecca FREY Work Phone: [facility] Start: 04-08-2024 End: 04-08-2024 Bamboo flowsheet Rebecca FREY Work Phone: [facility] Start: 04-08-2024 End: 04-08-2024 Patient encounter procedure Rebecca FREY Work Phone: [facility] Comment on above: Pre-op examination ( Primary Dx); Preop examination Start: 04-08-2024 End: 04-08-2024 Preprocedural examination done Rebecca FREY Work Phone: [facility] Healthcare Work Phone: Start: 04-08-2024 End: 04-08-2024 ambulatory REBECCA DIAS Not Available Start: 03-24-2024 End: 03-25-2024 Refsamanta Holden NP Work Phone: [facility] Comment on above: Internal derangement of left shoulder (Primary Dx) Start: 03-18-2024 End: 03-18-2024 Bamboo flowsheet Rebecca FREY Work Phone: [facility] Start: 03-18-2024 End: 03-18-2024 Bamboo flowsheet Rebecca FREY Work Phone: [facility] Start: 03-18-2024 End: 03-18-2024 External Result Encounter Rebecca FREY Work Phone: [facility] External Department Unsolicited Start: 03-18-2024 End: 03-18-2024 Orders Only Rebecca FREY Work Phone: [facility] Comment on above: Encounter for other preprocedural examination Start: 03-18-2024 End: 03-18-2024 Patient encounter status Rebecca FREY Work Phone: [facility] Start: 03-18-2024 End: 03-18-2024 Telephone encounter Rebecca FREY Work Phone: [facility] Start: 03-18-2024 Encounter for other preprocedural examination [facility] Start: 03-18-2024 End: 03-18-2024 Patient encounter procedure Rebecca FREY Work Phone: [facility] Comment on above: Preop examination (P rimary Dx) Start: 03-18-2024 End: 03-18-2024 Preprocedural examination done Rebecca FREY Work Phone: [facility] Healthcare Start: 03-18-2024 End: 03-18-2024 ambulatory REBECCA DIAS [facility] Start: 03-17-2024 End: 03-17-2024 ambulatory [facility] Work Phone: Start: 03-17-2024 End: 03-17-2024 Patient encounter procedure [facility] Gastroenterology Work Phone: Start: 03-12-2024 End: 03-12-[address] [facility] Start: 03-10-2024 End: 03-10-2024 ambulatory Roma Lopez MD Facility:[facility] Start: 03-03-2024 End: 03-03-2024 ambulatory JOHANNE MURILLO Not Available Start: 02-25-2024 End: 02-25-2024 ambulatory [facility] Start: 02-04-2024 End: 02-04-2024 ambulatory Peterson PETERSEN Facility:[facility] Start: 02-04-2024 End: 02-04-2024 Patient encounter procedure Peterson PETERSEN [facility] Start: 01-31-2024 End: 01-31-2024 ambulatory ASHLI ROSS Not Available Start: 01-28-2024 End: 01-28-2024 ambulatory Peterson PETERSEN Facility:[facility] Start: 01-28-2024 End: 01-28-2024 Patient encounter procedure Peterson PETERSEN [facility] Start: 12-13-2023 End: 12-15-2023 ambulatory GREGORIA Corrie RALPH [facility] Start: 12-05-2023 End: 12-05-2023 ambulatory DANK CAMPO Not Available Start: 11-22-2023 End: 11-22-2023 ambulatory DEXTER KRISHNAMURTHY Not Available Start: 11-14-2023 End: 11-14-2023 ambulatory DANK CAMPO Not Available Start: 11-05-2023 End: 11-05-2023 ambulatory Roma Lopez MD Facility:[facility] Start: 10-31-2023 End: 10-31-2023 ambulatory DEXTER KRISHNAMURTHY Not Available Start: 10-30-2023 End: 10-30-2023 ambulatory Dank Campo Facility:[facility] Start: 10-30-2023 End: 10-30-2023 ambulatory ASHLI Scott CODY Not Available Start: 10-17-2023 End: 10-17-2023 ambulatory DEXTER KRISHNAMURTHY Not Available Start: 10-15-2023 End: 10-15-2023 ambulatory [facility] Start: 10-11-2023 End: 10-11-2023 ambulatory DANK CAMPO Not Available Start: 10-09-2023 End: 10-09-2023 ambulatory JYOTI FÉLIX Not Available Start: 10-01-2023 End: 10-01-2023 ambulatory [facility] Start: 09-27-2023 End: 09-27-2023 ambulatory DEXTER KRISHNAMURTHY Not Available Start: 09-05-2023 End: 09-05-2023 ambulatory DEXTER KRISHNAMURTHY Not Available Start: 08-29-2023 End: 08-29-2023 ambulatory DANK CAMPO Not Available Start: 08-27-2023 Telephone encounter [facility] Start: 08-23-2023 End: 08-23-2023 ambulatory GREGORIA RALPH [facility] Start: 08-22-2023 End: 08-23-2023 ambulatory Dank Campo Facility:[facility] Start: 08-20-2023 End: 08-20-2023 ambulatory Dank Campo Facility:[facility] Start: 08-17-2023 Telephone encounter Gregoria shields WATCH DIAL PRINTER-STAMP PRESS OPERATOR Work Phone: [facility] - Sleep Disorders Comment on above: Sleep Lab (CPAP) Start: 08-15-2023 End: 08-15-2023 Office outpatient visit 25 minutes Gregoria Ralph WATCH DIAL PRINTER-STAMP PRESS OPERATOR Work Phone: [facility] Comment on above: Personal history of tobacco use, presenting hazards to health (Primary Dx); Obstructive sleep apnea syndrome; CSA (central sleep apnea) Start: 08-15-2023 End: 08-15-2023 ambulatory GREGORIA RALPH [facility] Start: 08-09-2023 End: 08-09-2023 Patient encounter procedure MD Dank Campo Work Phone: [facility] Work Phone: Start: 08-09-2023 End: 08-09-2023 ambulatory MD Dank Campo Work Phone: [facility] Work Phone: Start: 08-09-2023 End: 08-09-2023 ambulatory DEXTER A LAST Not Available Start: 08-02-2023 Telephone encounter Aliza Escalera [facility]icians Pulmonary/Sleep Medicine Start: 08-01-2023 Chart [...] of 36.0 to 36.9 in adult ([facility]) (Primary Dx); Type 2 diabetes mellitus with diabetic polyneuropathy, with long-term current use of insulin ([facility]) Start: 07-30-2023 End: 07-30-2023 ambulatory ASHLI ROSS Not Available Start: 07-24-2023 End: 07-24-2023 Patient encounter procedure MD Dank Campo Work Phone: [facility] [address] [place] Work Phone: Start: 07-24-2023 End: 07-24-2023 ambulatory Edd Holden Facility:[facility] Start: 07-17-2023 End: 07-17-2023 Patient encounter procedure MD Dank Campo Work Phone: [facility] [place] Work Phone: Start: 07-17-2023 End: 07-17-2023 ambulatory MD Dank Campo Work Phone: [facility] Work Phone: Start: 06-26-2023 End: 06-26-2023 ambulatory MD Dank Campo Work Phone: [facility] Work Phone: Start: 06-26-2023 End: 06-26-2023 Patient encounter procedure MD Dank Campo Work Phone: [facility]-MRI [address] Work Phone: Start: 06-07-2023 End: [...] surgery center MD Dank Campo Work Phone: [facility] Work Phone: Start: 04-27-2023 End: 04-27-2023 ambulatory MD Dank Campo Work Phone: [facility] Work Phone: Start: 04-10-2023 End: 04-10-2023 ambulatory Imad Asaad Other [facility] [employer] Other Start: 04-10-2023 Office outpatient ne w 45 minutes Imad Asaad [facility] Start: 03-20-2023 End: 03-20-2023 ambulatory Imad Asaad Other [employer] Other Start: 03-20-2023 Telephone encounter Imad Asaad [facility] Start: 02-12-2023 End: 02-12-2023 ambulatory Peterson PETERSEN Facility: [place] Start: 02-12-2023 End: 02-12-2023 Patient encounter procedure Peterson PETERSEN [facility] Start: 02-06-2023 End: 02-06-2023 Lab Drop off ROSALVA MURO [facility] Start: 02-06-2023 End: 02-06-2023 ambulatory ROSALVA MURO Facility[facility] Start: 02-06-2023 End: 02-06-2023 Patient encounter procedure DEJUAN PETERSEN [facility] Start: 10-17-2022 End: 10-18-[address] DANK CAMPO Facility:[facility] Start: 09-20-2022 End: 09-20-2022 ambulatory Imad Asaad Other [employer] Other Start: 09-20-2022 Telephone encounter Imad Asaad [facility] Start: 09-14-2022 End: 09-14-[address] DANK CAMPO Facility:[facility] Start: 09-12-2022 End: 09-13-[address] DANK CAMPO Facility:[facility]1 Start: 07-24-2022 Telephone encounter Imad Asaad [facility] Start: 07-24-2022 End: 07-24-2022 Admission to same day surgery center MD Dank Campo [facility] Work Phone: Start: 07-24-2022 End: 07-24-2022 ambulatory MD Dank Campo Work Phone: [facility] Work Phone: Start: 07-20-2022 End: 07-20-2022 ambulatory Imad Asaad Other [facility] [employer] Other Start: 07-20-2022 Patient encounter procedure Imad Asaad [facility] Start: 05-10-2022 End: 05-11-[address] DANK CAMPO Facility:[facility] Start: 04-14-2022 End: 04-15-[address] SORIN SHORE Facility:[facility] Start: 02-03-2022 End: 02-03-2022 Patient encounter procedure Peterson PETERSEN [facility] Start: 01-30-2022 End: 01-31-2022 ambulatory REBECCA FERNANDO . Facility:[facility] Start: 01-27-2022 End: 01-28-2022 ambulatory [...] Phone: Start: 01-16-2020 Radiation (physical force) Peterson RIOS [facility] Comment on above: 12/08/2019 - 01/16/2020 12/08/2019 [...] 04-27-2033 Screening for malignant neoplasm of colon [facility] Start: 01-20-2031 DTaP,Tdap and Td Vaccines (3 - Td or Tdap) DTaP,Tdap and Td Vaccines (3 - Td or Tdap) [facility] Start: 02-10-2030 Screening for malignant neoplasm of colon [facility] Start: 08-27-2025 Glaucoma screening Diabetes: Retinopathy Screening [facility] Start: 02-24-2025 Adult BMI Screening Adult BMI Screening [facility] Start: 02-24-2025 Tobacco Screening Tobacco Screening [facility] Start: 09-03-2024 Urine screening for protein Diabetes: Urine Protein Screening [facility] Start: 08-15-2024 Adult BMI Screening Adult BMI Screening [facility] Start: 08-15-2024 Tobacco Screening Tobacco Screening [facility] Start: 07-14-2024 End: 07-14-2024 Patient encounter procedure 07/14/2024 2:00 PM EST Office Visit [facility] [address] [place] [address] Hanna Butcher MD [address] [address] [facility] Start: 05-28-2024 End: 05-28-2024 Patient encounter procedure 05/28/2024 7:30 AM EST Office Visit [facility] [address] [place] [address] Dank Campo MD [address] [place] [address] [facility] Start: 05-09-2024 End: 05-09-2024 Patient encounter procedure 05/09/2024 9:00 AM EST Office Visit [facility] [address] [place] [phone] Rebecca Dias, PA [address] [place] [address] [facility] Start: 05-02-2024 Hemoglobin A1c measurement Diabetes: Hemoglobin A1C [facility] Start: 04-29-2024 End: 04-29-2024 Patient encounter procedure 04/29/2024 10:45 AM EST Office Visit [facility] [address] [place] [phone] Ashli Ross, DO [address] [place] [address] [facility] Start: 04-08-2024 End: 04-08-2024 Patient encounter procedure [facility] Comment on above: Pre-op examination (Primary Dx) Start: 03-25-2024 End: 03-25-2024 Patient encounter procedure 03/25/2024 1:30 PM EDT Procedure Visit [facility] Jr. Johanne Hdez, DO [address] [place] [address] [facility] Start: 03-18-2024 End: 03-13-2025 Basic metabolic 1998 panel - Serum or Plasma Basic metabolic panel Lab Routine Preop examination Expected: 03/18/2024 (Approximate), Expires: 03/13/2025 [facility] Work Phone: Comment on above: Expected: 03/18/2024 (Approximate), Expi res: 03/13/2025 Start: 03-18-2024 End: 03-18-2025 CBC W Auto Differential panel - Blood [facility] Work Phone: Comment on above: Expected: 03/18/2024, Expires: Expected: 03/18/2024 (Approximate), Expires: 03/13/2025 Start: 03-18-2024 End: 03-13-2025 Prothrombin time (PT) in Blood by Coagulation assay Protime-INR Lab Routine Preop examination Expected: 03/18/2024 (Approximate), Expires: 03/13/2025 [facility] Comment on above: Expected: 03/18/2024 (Approximate), Expi res: 03/13/2025 Start: 03-18-2024 End: 03-18-2025 Protime & INR Protime & INR Lab Routine Encounter for other preprocedural examination Expected: 03/18/2024, Expires: 03/18/2025 [facility] Work Phone: Comment on above: Expected: 03/18/2024, Expires: Start: 03-18-2024 Subsequent hospital visit by physician 03/18/2024 9:07 AM EDT Hospital Encounter [facility] [address] [place] [phone] Arrived [facility] Comment on above: Arrived Start: 03-18-2024 End: 03-18-2024 Patient encounter procedure [facility] Comment on above: Preop examination Start: 02-25-2024 End: 02-25-2024 Patient encounter procedure 02/25/2024 10:30 AM EDT Office Visit [facility] [address] [place] [phone] Hanna Butcher MD [address] [facility] [address] [place] [address] [facility] Start: 02-17-2024 COVID-19 Vaccine () COVID-19 Vaccine () [facility] Start: 11-19-2023 End: 11-19-2023 Clinical Support 11/19/2023 8:00 PM EDT Clinical Support [facility] [address] [place] [phone] [facility] Start: 10-29-2023 End: 10-29-2023 Patient encounter procedure 10/29/2023 1:15 PM EDT Office Visit [facility] [address] [place] [phone] Ashli Ross DO [address] [place] [address] [facility] Start: 10-28-2023 Hemoglobin A1c measurement Diabetes: Hemoglobin A1C [facility] Start: 08-29-2023 End: 08-29-2023 Patient encounter procedure 08/29/2023 7:45 AM EDT Office Visit [facility] [address] [place] [address] Dank Campo MD [address] [place] [address] [facility] Start: 08-23-2023 End: 08-23-2023 Patient encounter procedure [facility] Start: 08-15-2023 End: 08-15-2024 CT Chest for screening WO contrast CT low dose lung screenin (3mo 6mo follow-up) Imaging Routine Personal history of tobacco use, presenting hazards to health Expected: 08/15/2023, Expires: 08/15/2024 [employer] Work Phone: Comment on above: Expected: 08/15/2023, Expires: Start: 08-15-2023 End: 08-15-2024 Echo complete W/O contrast Echo complete W/O contrast Echocardiography Routine Obstructive sleep apnea syndrome CSA (central sleep apnea) Expected: 08/15/2023, Expires: 08/15/2024 [facility] Comment on above: Expected: 08/15/2023, Expires: Start: 08-09-2023 End: 08-09-2023 Patient encounter procedure 08/09/2023 8:30 AM EST Office Visit [facility] [address] [place] [phone] Dexter Krishnamurthy, DPSonia [address] [facility] [place], [place] [phone] [facility] Start: 08-01-2023 End: 08-01-2023 Patient encounter procedure 08/01/2023 10:30 AM EST Office Visit [facility] [address] [place] [phone] Jr. Johanne Hdez, DO [address] [address] [facility] Start: 04-27-2023 [facility] Start: 04-11-2023 Administration of varicella zoster vaccine Zoster (Shingles) Vaccine (3 of 3) [facility] Start: 02-16-2023 COVID-19 Vaccine ( season) COVID-19 Vaccine ( season) [facility] Start: 02-16-2023 COVID-19 Vaccine ( season) COVID-19 Vaccine ( season) [facility] Start: 02-16-2023 Influenza vaccination Influenza Vaccine [facility] Start: 07-24-2022 [facility] Start: 04-15-2022 Adult BMI Screening Adult BMI Screening [facility] Start: 09-15-2020 Abdominal aortic aneurysm screening Abdominal Aortic Aneurysm (AAA) Screen [facility] Start: 09-15-2020 Fall Risk Screening Fall Risk Screening [facility] Start: 09-15-1974 Urine screening for protein Diabetes: Urine Protein Screening [facility] Start: 09-15-1973 Adult BMI Follow Up Plan Adult BMI Follow Up Plan [facility] Start: 1967 Depression Screening Depression Screening [facility] Start: 1967 Tobacco Screening Tobacco Screening [facility] Start: 09-15-1965 Glaucoma screening Diabetes: Retinopathy Screening [facility] Start: 1955 Medicare Annual Wellness (AWV) Medicare Annual Wellness (AWV) [facility] Start: 1955 Medicare Annual Wellness Visit Medicare Annual Wellness Visit [facility] Start: 1955 Screening for malignant neoplasm of colon [facility] Patient [facility] Work Phone: End: 08-15-2024 Polysomnography 4 or more parameters with PAP titration Polysomnography 4 or more parameters with PAP titration Sleep Center Routine Obstructive sleep apnea syndrome CSA (central sleep apnea) 1 Occurrences starting 08/15/2023 until 08/15/2024 [facility] Comment on above: 1 Occurrences starting 08/15/2023 until 08/15/2024 Immunizations Immunization Date Immunization Notes Care Provider Kiera johnston 04-22-2023 zoster vaccine recombinant Ashli Petznick DO Work Phone: [facility] 03-23-2023 RSV, recombinant, protein subunit RSVpreF, adjuvant reconstitu, 120mcg/0.5mL, PF (Arexvy) Ashli Petznick DO Work Phone: [facility] 02-14-2023 Influenza, Seasonal, Quadrivalent, Adjuvanted Ashli Petznick DO Work Phone: [facility] 02-14-2023 zoster vaccine recombinant Ashli Petznick DO Work Phone: [facility] 02-14-2023 influenza virus vaccine, unspecified formulation Aliza Escalera [facility] 02-14-2023 zoster vaccine, unspecified formulation Aliza Escalera [facility] 04-09-2022 COVID-19 mRNA Bivale nt Booster (Pfizer) MD Dank Campo Work Phone: [facility] 04-09-2022 influenza virus vaccine, unspecified formulation Peterson PETERSEN [facility] 04-09-2022 Influenza, Seasonal, Quadrivalent, Adjuvanted Ashli Petznick DO Work Phone: [facility] 04-13-2021 COVID-19 mRNA, Comirnaty (Pfizer) MD Dank Campo Work Phone: [facility] 02-22-2021 influenza virus vaccine, unspecified formulation Peterson PETERSEN [facility] 02-22-2021 Influenza, Seasonal, Quadrivalent, Adjuvanted Ashli Petznick DO Work Phone: [facility] 02-22-2021 pneumococcal polysaccharide vaccine, 23 valent Ashli Petznick DO Work Phone: [facility] 02-16-2021 pneumococcal conjuga te vaccine, 13 valent Peterson PETERSEN [facility] 01-20-2021 tetanus and diphther ia toxoids, adsorbed, preservative free, for adult use (5 Lf of tetanus toxoid and 2 Lf of diphtheria toxoid) Imad Asaad Other [employer] Other 01-20-2021 tetanus and diphther ia toxoids, adsorbed, preservative free, for adult use (2 Lf of tetanus toxoid and 2 Lf of diphtheria toxoid) Peterson PETERSEN [facility] 01-17-2021 influenza virus vaccine, unspecified formulation Peterson PETERSEN [facility] 01-17-2021 influenza, seasonal, injectable Ashli Petznick DO Work Phone: [facility] 01-17-2021 Moderna SARS-CoV-2 Vaccination Ashli Petznick DO Work Phone: [facility] 10-16-2020 SARS-CoV-2 (COVID-19 ) mRNA BNT-162b2 vax Peterson PETERSEN [facility] 10-01-2020 COVID-19 mRNAAlfred (Pfizer) MD Dank Campo Work Phone: [facility] 09-08-2020 COVID-19 mRNAAlfred (Pfizer) MD Dank Campo Work Phone: [facility] 02-17-2020 influenza virus vaccine, unspecified formulation Pronutria [facility] 02-17-2020 influenza, injectabl e, quadrivalent, preservative free Ashli Petznick DO Work Phone: [facility] 02-09-2020 influenza, high dose seasonal, preservative-free Ashli Petznick DO Work Phone: [facility] 03-15-2019 influenza virus vaccine, unspecified formulation Pronutria [facility] 03-15-2019 influenza, injectabl e, quadrivalent, preservative free Ashli Petznick DO Work Phone: [facility] 02-25-2018 influenza virus vaccine, unspecified formulation Pronutria [facility] 02-25-2018 influenza, injectabl e, quadrivalent, preservative free Ashli Petznick DO Work Phone: [facility] 05-30-2017 pneumococcal conjuga te vaccine, 13 valent Ashli Petznick DO Work Phone: [facility] 05-30-2017 pneumococcal polysaccharide vaccine, 23 valent Ashli Petznick DO Work Phone: [facility] 03-02-2017 influenza nasal, unspecified formulation Ashli Petznick DO Work Phone: [facility] 03-02-2017 influenza virus vaccine, unspecified formulation Aliza [facility] 03-02-2017 influenza, injectabl e, quadrivalent, preservative free Ashli Petznick DO Work Phone: [facility] 03-05-2016 influenza virus vaccine, unspecified formulation Peterson Endra [facility] 03-05-2016 influenza, injectabl e, quadrivalent, preservative free Ashli Petznick DO Work Phone: [facility] 03-05-2016 influenza, seasonal, injectable Ashli Petznick DO Work Phone: [facility] 02-18-2015 zoster vaccine, live Ashli Petznick DO Work Phone: [facility] 02-01-2015 influenza virus vaccine, unspecified formulation Peterson Endra [facility] 02-01-2015 influenza, seasonal, injectable Ashli Petznick DO Work Phone: [facility] 08-18-2014 tetanus toxoid, redu inocencio diphtheria toxoid, and acellular pertussis vaccine, adsorbed Ashli Petznick DO Work Phone: [facility] 08-04-2013 pneumococcal conjuga te vaccine, 13 valent Ashli Petznick DO Work Phone: [facility] Payers Date Payer Category Payer Self-pay [id number] 2023 Unknown [id number] 2021 Medicare (Managed Care) KT YUAN [id number] 2020 Medicare [id number]. 1.13.693. [id number] 2013 Unknown [id number]. 1.13.424. 2.7.3.149656.315 1959 Medicare [id number] 1955 Unknown [id number] 2.840.1.296829.3.579. 2.593 1955 Unknown [id number] 2.16840.1.070907.3.579. 2.593 1955 Unknown [id number] 2.16840.1.916740.3.579. 2.593 1955 Unknown [id number] 2.16840.1.922640.3.579. 2.593 1955 Unknown [id number] 2.16840.1.787909.3.579. 2.593 1955 Unknown [id number] 2.16840.1.360099.3.579. 2.593 1955 Unknown [id number] 2.16840.1.389551.3.579. 2.593 1955 Unknown [id number] 2.16.840.1.616204.3.579. 2.593 1955 Unknown [id number] 2.16.840.1.171681.3.579. 2.1286 1955 Unknown [id number] 2.16.840.1.146615.3.579. 2.727 1955 Unknown [id number] 2.16.840.1.857356.3.579. 2.727 1955 Unknown [id number] 2.16.840.1.127501.3.579. 2.727 1955 Unknown [id number] 2.16.840.1.378114.3.579. 2.727 1955 Unknown [id number] 2.16.840.1.761558.3.579. 2. 1955 Unknown [id number] 2.16.840.1.779391.3.579. 2.727 1955 Unknown [id number] 2.16.840.1.733733.3.579. 2.1285 1955 Unknown [id number] 2.16.840.1.544845.3.579. 2.128 1955 Unknown [id number] 2.16.840.1.990571.3.579. 2. 1955 Unknown [id number] 2.16.840.1.076160.3.579. 2.196 1955 Unknown [id number] 2.16.840.1.092967.3.579. 2.196 1955 Unknown [id number] 2.16.840.1.063933.3.579. 2.196 1955 Unknown [id number] 2.16.840.1.410152.3.579. 2.1285 1955 Unknown [id number] 2.16.840.1.781450.3.579. 2.1285 1955 Unknown [id number] 2.16.840.1.432399.3.579. 2.128 1955 Unknown [id number] 2.16.840.1.727295.3.579. 2.1286 1955 Unknown [id number] 2.16.840.1.919302.3.579. 2.1258 1955 Unknown [id number] 2.16.840.1.722821.3.579. 2.125 1955 Unknown [id number] 2.16.840.1.786624.3.579. 2.125 1955 Unknown [id number] 2.16.840.1.291923.3.579. 2.125 1955 Unknown [id number] 2.16.840.1.586409.3.579. 2.1258 1955 Unknown [id number] 2.16.840.1.025133.3.579. 2.1258 1955 Unknown [id number] 2.16.840.1.857084.3.579. 2.1258 1955 Unknown [id number] 2.16.840.1.816394.3.579. 2.1258 1955 Unknown [id number] 2.16.840.1.982240.3.579. 2.1258 1955 Unknown [id number] 2.16.840.1.992666.3.579. 2.1258 1955 Unknown [id number] 2.16.840.1.958776.3.579. 2.125 1955 Unknown [id number] 2.16.840.1.001180.3.579. 2.1258 1955 Unknown [id number] 2.16.840.1.187240.3.579. 2.1258 1955 Unknown [id number] 2.16.840.1.326370.3.579. 2.125 1955 Unknown [id number] 2.16.840.1.729324.3.579. 2.1259 1955 Unknown [id number] 2.16.840.1.284804.3.579. 2.1258 1955 Unknown [id number] 2.16.840.1.241079.3.579. 2.1258 1955 Unknown [id number] 2.16.840.1.122270.3.579. 2.1258 1955 Unknown [id number] 2.16.840.1.805796.3.579. 2.1258 1955 Unknown [id number] 2.16.840.1.154050.3.579. 2.1258 1955 Unknown [id number] 2.16.840.1.346535.3.579. 2.1258 1955 Unknown [id number] 2.16.840.1.899822.3.579. 2.1258 1955 Unknown [id number] 2.16.840.1.272351.3.579. 2.1258 1955 Unknown [id number] 2.16.840.1.221354.3.579. 2.1258 1955 Unknown [id number] 2.16.840.1.231872.3.579. 2.1258 1955 Unknown [id number] 2.16.840.1.949680.3.579. 2.1259 Medicare Medicare [id number] Unknown [place] BC/BS [id number] Unknown Regular Insurance [id number] Unknown [id number] 2.16.840.1.351897.3.579. 2.531 Unknown [id number] 2.16.840.1.250651.3.579. 2.531 Unknown [id number] 2.16.840.1.149234.3.579. 2.531 Unknown [id number] 2.16.840.1.751346.3.579. 2.531 Unknown [id number] 2.16.840.1.391797.3.579. 2.531 Unknown [id number] 2.16.840.1.560116.3.579. 2.531 Unknown [id number] 2.16.840.1.032108.3.579. 2.531 Worker's Compensation [employer] [id number] Worker's Compensation [id number] Social History Date Type Detail Facility Start: 02-03-2022 End: 08-20-2023 Ex-smoker (finding) [facility] Start: 01-09-2023 End: 01-16-2023 Male [facility] Start: 1955 Sex Assigned At Male F [facility] Start: 06-18-1974 End: 2021 History [...] to any clubs or organizations such as zoroastrian groups, unions, fraternal or athletic groups, or [...] -6 months agoHeavy cigarette smoker (20-39 cigs/day) [facility] Start: 05-01-2023 Alcohol Comment Caffeine intake: non e [facility] Start: 1955 Sex Assigned At Not on file [facility] Start: 12-22-2020 Tobacco smoking stat [facility] Start: 04-15-2021 End: 02-25-2024 Alcohol intake Current non-drinker of alcohol (finding) [facility] Medical Equipment Procedure Code Equipment Code Equipment Origin al Text Equipment Identifier Dates EGD (esophagogastroduod enoscopy) Video capsule endoscopy system [id number] FDA Start: 08-18-2020 [id number] Start: 09-19-2022 use to test BLOO D SUGAR THREE TIMES DAILY [id number] Start: 09-19-2022 use to test BLOO D SUGAR THREE TIMES DAILY [id number] Start: 11-01-2022 Swivelock 4.75 - Sna - [id number] Start: 12-10-2017 Incv/Swivelock 4.75 Use [id number] - Sna - [id number] Start: 07-19-2020 USE DIRECTED FOUR TIMES DAILY [id number] Start: 02-21-2024 Fsbs bid [id number] Start: 12-17-2023 Goals Date Patient Goal Desired Activity /State Personal health goal Comment on above: Formatting of this n ote might be different from the original. Evaluation of progress towards goal: Home self care with childrens support Functional Status Date Assessment Result Facility 02-04-2024 Functional Status N/A [facility] 02-12-2023 Functional Status N/A [facility] 02-03-2022 N/A [facility] Clinical Notes 11-04-2020 to 04-08-2024 Rebecca Dias, PA - 04/08/2024 8:15 AM EDTTelephone Encounter - Jr. Johanne Hdez, DO - 03/25/2024 8:05 AM EDTTelephone Encounter - . Johanne Hdez, DO - 03/25/2024 8:05 AM EDT Note Date [...] Hypertension (CMS/HCC) Iron Infusions on going per [facility] , Low back pain Migraine (CMS/HCC) Otitis externa Prostate cancer (CMS/HCC) 2018 radiation PVC (premature ventricular contraction) Right shoulder pain Rotator cuff tear, right 2020 Sleep apnea PAST SURGICAL HISTORY: Past Surgical History: Procedure Laterality Date APPENDECTOMY 1971 CHOLECYSTECTOMY COLONOSCOPY COLONOSCOPY 2015 EGD GALLBLADDER SURGERY 03/2021 HEEL SPUR SURGERY Right 2011 [place] KNEE SURGERY x2 arthroscopy OTHER SURGICAL HISTORY 07/31/2017 RM and T-tube, Timmis OTHER SURGICAL HISTORY Right 07/2020 Right PCR ROTATOR CUFF REPAIR Bilateral [id number] Wendy Crowell ROTATOR CUFF REPAIR SHOULDER ARTHROSCOPY [...] 10 mg, Oral, 3 times daily Drug [place] Unifine Pentips 31G X 5 MM misc USE DIRECTED FOUR TIMES DAILY fluorometholone (FML) 0.1 % ophthalmic suspension instill 1 (ONE) DROP IN BOTH EYES FOUR TIMES DAILY FOR 7 DAYS then instill 1 (ONE) DROP IN BOTH EYES TWICE DAILY FOR 7 DAYS FLUoxetine (PROZAC) 20 mg, Oral, Daily gabapentin (Neurontin) 100 MG capsule Oral glucose blood (Spruikuch Ultra) test strip Fsbs bid insulin lispro (HumaLOG) 100 UNIT/ML injection INJECT 5-10 UNITS BREAKFAST, 30 UNITS LUNCH/ DINNER PLUS CORRECTIONS OF 1:30 > 150MG/DL ( MAX 100 UNITS A DAY) Lancets (StackSearchTouch Delica Plus [id number]) misc use to test BLOOD SUGAR THREE [...] surgery scheduled. (L) SHOULDER SCOPE 04/25 @FOREIGN [facility]AS INSTRUCTIONS GIVEN TODAY 04/08 @8:15AM - [facility] DR[facility] CAMPO CLEARANCE ; OBTAINED ULTRASLING GIVEN AT PRIOR APPT [facility] NOTIFIED PA APPROVED ([id number]) Follow up for 05/09 @9am w/tish in [place]. documented in this encounter [facility] 03-25-2024 Telephone encounter Note Case cancelled as he took aspirin and celebrex [facility] Work Phone: 03-25-2024 Miscellaneous Notes Case cancelled as he took aspirin and celebrex Post op pain rx. PDMP reviewed documented in this encounter [facility] 03-24-2024 Telephone encounter Note Post op pain rx. PDMP reviewed [facility] 03-18-2024 Telephone encounter Note Reviewed Pre-op labs.. Abdnormal renal function and potassium level. Labs in chart... Dr. Campo.. are you willing to address? [facility] Work Phone: 03-18-2024 Miscellaneous Notes Reviewed Pre-op labs.. Abdnormal renal function and potassium level. Labs in chart... Dr. Campo.. are you willing to address? documented in this encounter [facility] 03-18-2024 History of Presen t illness Narrative [...] Hypertension (CMS/HCC) Iron Infusions on going per [facility] , Low back pain Migraine (CMS/HCC) Otitis externa Prostate cancer (CMS/HCC) 2018 radiation PVC (premature ventricular contraction) Right shoulder pain Rotator cuff tear, right 2020 Sleep apnea PAST SURGICAL HISTORY: Past Surgical History: Procedure Laterality Date APPENDECTOMY 1970 CHOLECYSTECTOMY COLONOSCOPY COLONOSCOPY 2015 EGD GALLBLADDER SURGERY 03/2021 HEEL SPUR SURGERY Right 2011 [place] KNEE SURGERY x2 arthroscopy OTHER SURGICAL HISTORY 07/31/2017 RM and T-tube, Timmis OTHER SURGICAL HISTORY Right 07/2020 Right PCR ROTATOR CUFF REPAIR Bilateral [id number] Wendy Crowell ROTATOR CUFF REPAIR SHOULDER ARTHROSCOPY [...] mg, Oral, 3 times daily PRN Drug [place] Unifine Pentips 31G X 5 MM misc USE DIRECTED FOUR TIMES DAILY fluorometholone (FML) 0.1 % ophthalmic suspension instill 1 (ONE) DROP IN BOTH EYES FOUR TIMES DAILY FOR 7 DAYS then instill 1 (ONE) DROP IN BOTH EYES TWICE DAILY FOR 7 DAYS FLUoxetine (PROZAC) 20 mg, Oral, Daily glucose blood (StackSearchTouch Ultra) test strip Fsbs bid insulin lispro (HumaLOG) 100 UNIT/ML injection INJECT 5-10 UNITS BREAKFAST, 30 UNITS LUNCH/ DINNER PLUS CORRECTIONS OF 1:30 > 150MG/DL ( MAX 100 UNITS A DAY) Lancets (StackSearchTouch Delica Plus [id number]) misc use to test BLOOD SUGAR THREE [...] SX INSTRUCTIONS GIVEN TODAY 03/18 @8:30AM - [facility] [place] ULTRASLING GIVEN TODAY ARTHREX NOTIFIED PA APPROVED ([id number]) Patient presents today for fitting of left [...] Follow up for 04/08 @9am w/tish in [place]. documented in this encounter [facility] 02-04-2024 Hospital Discharg e instructions Patient Education [...] treatment? Where to find more information The [place] [employer] Society: www.cancer.org [place] [employer] Association: www.auanet.org Contact a health care [...] provider. Document Revised: 11/28/2021 Document Reviewed: 11/28/2021 [employer] Patient Education 2022 Yozons. Follow Up Care 02/12/2023 10:16:19 With:NICOLA RAYMUNDO, Peterson Owens, URL Address: [facility] [address], [place] [phone] When: Unknown [facility] Barb 02-04-2024 Note Patient Education Oncology Prostate [...] Where to find more information ? The [place] [employer] Society: www.cancer.org ? [place] [employer] Association: www.auanet.org Contact a health care [...] rectum. (more content not included)... [facility] 08-27-2023 Miscellaneous Notes ----- Message from SONNY Denis sent at 08/24/2023 10:25 AM EST ----- EF >45% ok for ASV Noted below in sleep lab encounter and on appt desk for techs for titration appt [facility] Telephone encounter Note ----- Message from SONNY Denis sent at 08/24/2023 10:25 AM EST ----- EF >45% ok for ASV [facility] 08-27-2023 Telephone encounter Note Noted below in sleep lab encounter and on appt desk for techs for titration appt [employer] 08-17-2023 Miscellaneous Notes 08/15 received CPAP order 08/16 Scheduled CPAP at [facility] 11/18 Confirmation mailed and emailed [employer] Medicare CPAP order and 08/15 Kregel notes in epic With TCO2 monitoring. Please obtain baseline in supine position. Starting pressure IPAP25 EPAP10 PS 5 notes CSA on last download plans for Echo prior to titration documented in this encounter [employer] 08-17-2023 Telephone encounter Note 08/15 received CPAP order 08/16 Scheduled CPAP at [facility] 11/18 Confirmation mailed and emailed [employer] Medicare CPAP order and 08/15 Kregel notes in epic With TCO2 monitoring. Please obtain baseline in supine position. Starting pressure IPAP25 EPAP10 PS 5 notes CSA on last download plans for Echo prior to titration [employer] 08-15-2023 History of Presen t illness Narrative [...] humidifier. Cleaning supplies with soap and water. Collison Sleepiness Scale: Sitting and Reading: (!) Moderate [...] Anemia Unknown Arthritis Benign prostatic hyperplasia Cancer ([facility] PROSTATE COPD (chronic obstructive pulmonary disease) ([facility] Unknown Diabetes mellitus type 2, controlled ([facility]) GERD (gastroesophageal reflux disease) History of placement [...] Expiration Date: 08/15/2024 Order Specific Question: [facility] required diagnosis: Answer: Personal history of [...] titration Order Specific Question: Follow Up Answer: [facility] Sleep Medicine to read and [...] not to drive if sleepy, and to breast puller if sleepiness occurs while driving. Above [...] that have escaped final proofreading. Gregoria Ralph Formerly [facility] Office: [phone] 2:57 PM on 08/15/2023 CC: MD Gregoria GONZALEZ APRN-CNP 08/16/23 1438 documented in this encounter [facility] 08-15-2023 Instructions SONNY Denis - 08/15/2023 1:15 PM EST If you re looking for general health and wellness resources, please visit [email or web address] documented in this encounter [facility] 08-02-2023 Miscellaneous Notes Received sleep referral from Valeria Mckeon NP. Pt is already an established pt and last saw SK in 2020- was recommended to follow up with KW. However he was a no show for his last 2 appt with our office. Chat to Tahmina to advise if still to schedule appt. [email or web address] 08-02-2023 Telephone encounter Note Received sleep referral from Valeria Mckeon NP. Pt is already an established pt and last saw SK in 2020- was recommended to follow up with KW. However he was a no show for his last 2 appt with our office. Chat to Tahmina to advise if still to schedule appt. [facility] 07-30-2023 History of Presen t illness Narrative Associated Problem(s): Type 2 diabetes mellitus with diabetic polyneuropathy, with long-term current use of insulin ([facility]) During the appointment today all [...] Breakfast Lunch Dinner Snacks Drinks Premade meal (Sidney and dressing) (Mac and cheese) Protein shake [...] with long-term current use of insulin ([facility]) During the appointment today all [...] of 36.0 to 36.9 in adult ([facility]) - Primary Follow up in [...] ( MAX 100 UNITS A DAY) LANCETS (Bird[employer] SolutionsTOUCH DELICA PLUS [id number]) MISC use to test BLOOD SUGAR THREE [...] ER 50 mg tablet,extended release 24 hr BirdDog SolutionsTOUCH ULTRA TEST STRIP use to test BLOOD [...] mg) before bedtime. documented in this encounter [facility] 04-27-2023 Procedure note [facility] 04-10-2023 Evaluation note Encounter Date Diagnosis Assessment Notes Mar, GERD (gastroesophage al reflux disease) (ICD-10 - K21.9) The patient continues to complain of ongoing regurgitation. He is taking Lansoprazole 30 mg dialy & we will increase this to 30 mg bid. Mar, Hemorrhoids (ICD-10 - K64.9) Mar, Alternating constipation and diarrhea (ICD-10 - R19.8) [employer] Other 10-03-2023 Evaluation note* Encounter Date Diagnosis Assessment Notes Treatment Notes Treatment Clinical Notes Mar, Gastroesophageal ref lux disease with esophagitis (ICD-10 - K21.0) [employer] Other 08-28-2023 Hospital Discharge instructions Patient Education [...] under a microscope. This is called the Grant score and the total score can range from 6 10, indicating how likely it is that the cancer will spread (metastasize) to other parts of the body. The higher the score, the greater thelikelihood that the cancer will spread. Rosalina 6 or lower: This indicates that the cancer cells look similar to normal prostate cells (well differentiated). Grant 7: This indicates that the cancer cells [...] stress of having cancer. General instructions Take ywmo-bit-mmscjtn and prescription medicines only as told by your health care provider. If you have to go to the hospital, notify your cancer specialist (oncologist). Keep all follow-up visits. This is important. Where to find more information [place] Cancer Society: www.cancer.org [place] Society of Clinical Oncology: www.cancer.net National Cancer Holl[place]: www.cancer.gov Contact a health care provider if: [...] provider. Document Revised: 08/31/2021 Document Reviewed: 08/31/2021 [employer] Patient Education 2022 Yozons. Follow Up Care 02/03/2022 09:06:37 With:NICOLA RAYMUNDO, Peterson Owens, URL Address: [facility] [address], [place] [address]- [phone] When: Unknown Comments:1 yr w/ PSA [facility] Barb 04-05-2023 Evaluation note* Encounter Date Diagnosis Assessment Notes Treatment Notes Treatment Clinical Notes Sep, Gastroesophageal ref lux disease with esophagitis (ICD-10 - K21.0) [employer] Other 02-06-[facility]* Encounter Date Diagnosis Assessment Notes Treatment Notes Treatment Clinical Notes Jul, Diarrhea (ICD-10 - R19.7) Jul, GERD (gastroesophageal reflux disease) (ICD-10 - K21.9) Jul, Hemorrhoids (ICD-10 - K64.9) PATIENT TO START ANUSOL CREAM USE SITZ BATH NEEDED Jul, Dysphagia (ICD-10 - R13.10) [employer] Other 10-28-2022 NotePROCEDURE: XR FOOT RT MIN 3 VIEWS COMPARISON: None. HISTORY: Pain in right foot FINDINGS: BONES:No acute fracture or dislocation. Persistent hammertoe deformities. Moderate hallux valgus. 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 Bulky enthesopathic spurring of the calcaneus SOFT TISSUES:Negative. No visible soft tissue swelling. EFFUSION:None visible. OTHER: Negative. IMPRESSION: Degenerative changes Electronically authenticated by: SORIN SHORE Date: 2022-04-14 18:01[facility]08-19-2022 Hospital Discharge instructions Patient Education 02/03/2022 [...] urethra. Follow these instructions at home: Take nldr-cea-srdiljy and prescription medicines only as told by [...] 06/04/2006 Document Revised: 04/29/2019 Document Reviewed: 07/09/2017 [employer] Patient Education 2020 Yozons. Follow Up Care 08/05/2021 10:59:30 With:NICOLA RAYMUNDO, Peterson Owens, URL Address: [facility] [address], [place] [address]- When:1 year Comments:W/ PSA [facility] 08-17-2021 NoteHNO ID: [id number] Author: Fawad Diaz MD Service: ? Author Type: Physician Type: Progress Notes Filed: 02/03/2021 9:48 AM Note Text: Radiation Oncology - Follow Up Note PATIENT NAME: Milad Seymour PATIENT DIAGNOSIS: DIAGNOSIS: Prostate adenocarcinoma, initial PSA 14.65, biopsy Grant score 3 + 3 = 6 (grade [...] MD cc: Dank Campo MD (DrC) [address] [facility] [address] [place] [id number] Dr. Petersen Portions of the above note extracted and edited from previous visit as well as active information included in the EMR.[facility] 11-04-2020 NoteHNO ID: [id number] Author: Fawad Diaz MD Service: ? Author Type: Physician Type: Progress Notes Filed: 11/04/2020 9:44 AM Note Text: Radiation Oncology - Follow Up Note PATIENT NAME: Milad Seymour PATIENT DIAGNOSIS: DIAGNOSIS: Prostate adenocarcinoma, initial PSA 14.65, biopsy Grant score 3 + 3 = 6 (grade [...] Fawad Diaz MD cc: Dank Campo MD ([facility]) [address] [facility] [place] [address] [facility] Future Appointments Appointment Date:02/12/2023 09:15:00 AM Scheduled Provider:Peterson PETERSEN MD Location:[facility] Appointment Type:URO Office Visit Diagnostic Tests Pending * PSA Total 02/03/22 [facility] evaluation + Plan note Future Appointments Appointment Date:02/12/2023 09:15:00 AM Scheduled Provider:Peterson PETERSEN MD Location:[facility] Appointment Type:URO Office Visit [facility] evaluation + Plan note Future Appointments Appointment Date:02/15/2024 08:15:00 AM Scheduled Provider:Peterson PETERSEN [facility] Office Visit Diagnostic Tests Pending * PSA Total 02/12/23 [facility] evaluation + Plan note Future Appointments Appointment Date:02/04/2024 11:30:00 AM Scheduled Provider:Peterson PETERSEN MD Location:[facility] Appointment Type:URO Office Visit [facility] evaluation + Plan note Future Appointments Appointment Date:02/09/2025 08:45:00 AM Scheduled Provider:Peterson PETERSEN MD Location:[facility] Appointment Type:URO Office Visit Diagnostic Tests Pending * PSA Total 02/04/24 [facility] evaluation noteNo assessment information available [facility] Work Phone: Evaluation noteNo InformationNort StudyCloud Other Evaluation note* Diagnosis Class 2 severe obesity due to excess calories with serious comorbidity and body mass index (BMI) of 36.0 to 36.9 in adult ([facility])- Primary Type 2 diabetes mellitus with diabetic polyneuropathy, with long-term current use of insulin ([facility]) documented in this encounter [facility]* Diagnosis Onset Date Resolution Status H/O rotator cuff surgery acu te [facility] Work Phone: Evaluation note* Diagnosis Personal history of tobacco use, presenting hazards to health- Primary Obstructive sleep apnea syndrome Obstructive sleep apnea (adult) (pediatric) CSA (central sleep apnea) Unspecified sleep apnea [facility] Diagnosis Onset Date Resolution Status Diarrhea acute GERD (gastroesophageal reflux disease) acute [facility] Work Phone: Evaluation note* Diagnosis Encounter for other preprocedural examination documented in this encounter [employer] SystemEvaluation note* Diagnosis Preop examination- Primary Unspecified pre-operative examination documented in this encounter [employer] ScaleIOEvaluation note* Diagnosis Internal derangement of left shoulder- Primary documented in this encounter [facility] ScaleIOEvaluation note* Diagnosis Type 2 diabetes mellitus with diabetic polyneuropathy, with long-term current use of insulin ([facility])- Primary Class 2 severe obesity due to excess calories with serious comorbidity and body mass index (BMI) of 35.0 to 35.9 in adult ([facility] Primary Type 2 diabetes mellitus with diabetic polyneuropathy, with long-term current use of insulin ([facility]) Long-term insulin use ([facility]) Lumbar spondylosis- Primary Lumbosacral spondylosis without myelopathy Benign essential hypertension ([facility]) Essential hypertension, benign Bilateral leg edema Edema Class 2 severe obesity due to excess calories with serious comorbidity and body mass index (BMI) of 36.0 to 36.9 in adult ([facility])- Primary Type 2 diabetes mellitus with diabetic polyneuropathy, with long-term current use of insulin (CMS/HCC) Benign essential hypertension (CMS/HCC)- Primary Essential hypertension, benign Lumbar spondylosis Lumbosacral spondylosis without myelopathy Bilateral leg edema Edema Type 2 diabetes mellitus with diabetic polyneuropathy, with long-term current use of insulin (CMS/HCC) Hypercholesteremia (CMS/[facility]) Pure hypercholesterolemia Encounter for long-term (current) use of medications Encounter for long-term (current) use of other medications Obesity (BMI 30-39.9) Body mass index [BMI] 36.0-36.9, adult (Z68.36) JARAD (generalized anxiety disorder) (CMS/HCC)- Primary Generalized anxiety disorder Benign essential hypertension (CMS/HCC) Essential hypertension, benign Class 2 severe obesity due to excess calories with serious comorbidity and body mass index (BMI) of 35.0 to 35.9 in adult (CMS/[facility])- Primary Type 2 diabetes mellitus with diabetic polyneuropathy, with long-term current use of insulin (CMS/HCC) Long-term insulin use ([facility]) Benign essential hypertension (CMS/HCC)- Primary Essential hypertension, [...] hyperglycemia, with long-term current use of insulin ([facility]/HCC) Class 2 severe obesity due to excess calories with serious comorbidity and body mass index (BMI) of 35.0 to 35.9 in adult ([facility])- Primary Type 2 diabetes mellitus with hyperglycemia, with long-term current use of insulin (CMS/[facility]) Type 2 diabetes mellitus with diabetic polyneuropathy, with long-term current use of insulin ([facility]) Long-term insulin use ([facility]) Type 2 diabetes mellitus with stage 3a chronic kidney disease, with long-term current use of insulin ([facility]) ([facility]) Pre-op examination- Primary Preop examination Unspecified pre-operative examination documented in this encounter [facility] Healthcare[facility] and physical note Author [facility] July 24, 2022 1:05pm Note Date/Time July 24, 2022 1 :05pm [facility] [address] [place] [address] Gastroenterology H&P Signed Patient: Milad Seymour MR#: [id number] : 1955 Acct:[id number] Age/Sex: 66 / M Adm Date: 3 Loc: Room: Type: [facility] Attending Dr: Kike Bernal MD Copies [...] <Electronically signed by Kike Bernal MD> 07/24/22 6081 [facility] Work Phone: History and physical note Author Kike Bernal [facility] April 27, 2023 11:41am Note Date/Time April 27, 2023 11:41am [facility] [address] [place] [address] Gastroenterology H&P Signed Patient: Milad Seymour MR#: [id number] : 1955 Acct:[id number] Age/Sex: 67 / M Adm Date: 3 Loc: Room: Type: [facility] Attending Dr: Kike Bernal MD Copies [...] <Electronically signed by Kike Bernal MD> 04/27/23 1142 [facility] Work Phone: History general Narrative - Reported* [...] History none in the last year 20 [employer] Other Hospital course Narrative No data available for this section [facility] Hospital Discharge instructions Additional Instructions DISCHARGE [...] problems. -Follow up with PCP. -Office number [phone]. [facility] Work Phone: Hospital Discharge instructions No data available for this section [facility] Hospital Discharge instructions Additional Instructions DISCHARGE [...] NOT operate machinery such as power tools, [employer] mowers, snow blowers, sewing machines, etc. for [...] in the office as scheduled -Office number [phone]. [facility] Work Phone: InstructionsNot on filedocumented in this encounter [facility]ructionsNot on filedocumented in this encounter [facility] SystemInstructionsNot on filedocumented in this encounter [facility] No data available for this section [facility] Summary Purpose Family History Relationship Condition [...] Recorded Date/ Time Advance Directives No October 11 018 2:12pm Date Activated Date Inactivated Comments [...] for Visit Diarrhea GERD (gastroesophageal reflux disease) Chief Complaint dysphagia 1 MONTH FOLLOW UP/ GERD/CONSTIPATION Reason for Visit Diarrhea GERD (gastroesophageal reflux disease) Reason for Referral Specialty Diagnoses / Procedures Referred By Anabel t Referred To Contact Diagnoses Obstructive sleep apnea syndrome CSA (central sleep apnea) Procedures Polysomnography 4 or more parameters with PAP titration Gregoria Ralph WATCH DIAL PRINTER-STAMP PRESS OPERATOR [address] [facility], [address] [address] Referral ID Status Reason Start Date Expiration Date V isits Requested Visits Authorized [id number] Pending Review 08/15/2023 08/14/2024 1 1 Specialty Diagnoses / Procedures Referred By Contac t Referred To Contact Diagnoses Obstructive sleep apnea syndrome CSA (central sleep apnea) Procedures Echo complete W/O contrast Gregoria Ralph WATCH DIAL PRINTER-STAMP PRESS OPERATOR [address] [address] [place] [id number] [place] [address] Phone: [phone] Referral ID Status Reason Start Date Expiration Date V isits Requested Visits Authorized [id number] Authorized 08/15/2023 11/12/2023 1 1 Specialty Diagnoses / Procedures Referred By Contac t Referred To Contact Radiology Diagnoses Personal history of tobacco use, presenting hazards to health Procedures CT low dose lung screenin (3mo 6mo follow-up) Gregoria Ralph WATCH DIAL PRINTER-STAMP PRESS OPERATOR [address] [address] Phone: [phone] Referral ID Status Reason Start Date Expiration Date V isits Requested Visits Authorized [id number] Authorized 08/16/2023 11/13/2023 1 1 Additional Source Comments (unrecognized sect ion and content) No Status Records FoundNo Status Records FoundNo Status Records FoundNo Status Records FoundNo Status Records FoundNo Status Records FoundNo Status Records FoundNo Status Records FoundNo Status Records Found INFORMATION SOURCE (unrecogn ized section and content) DATE CREATED AUTHOR 08/06/2021 [facility] DATE CREATED AUTHOR 'S ORGANIZ ATION 10/24/2022 [facility] [place] [facility] DATE CREATED AUTHOR AUTHOR'S ORGANIZ ATION 11/20/2023 [facility] DATE CREATED AUTHOR AUTHOR'S ORGANIZ ATION 12/15/2023 [facility] DATE CREATED AUTHOR AUTHOR'S ORGANIZ ATION 02/05/2024 Moreno Damián [facility] DATE CREATED AUTHOR AUTHOR'S ORGANIZ ATION 02/26/2024 [facility] DATE CREATED AUTHOR AUTHOR'S ORGANIZ ATION 03/17/2024 [facility] DATE CREATED AUTHOR AUTHOR'S ORGANIZ ATION 03/19/2024 [facility] DATE CREATED AUTHOR AUTHOR'S ORGANIZ ATION 04/10/2024 [facility] dical Specialists EPIC Care Team (unrecognized sect [...] July 17, 2023 End: July 17, 2023 Importer Exporter Relationship Specialty Start Date End Date Dank Campo MD [address] [place] [address] PCP - General Family Medicine 07/25/23 Importer Exporter Relationship Specialty Start Date End Date Dank Campo MD [address] [place] [address] PCP - General Family Medicine 07/25/23 Importer Exporter Relationship Specialty Start Date End Date Dank Campo MD [address] [place] [address] PCP - General Family Medicine 12/10/17 Team Status: Inactive Member Role Status Dates Dank Campo MD Primary Care Provider Active S tart: July 24, 2023 End: July 24, 2023 Edd Holden BODY SHOP WORKER-C Attending Provider Active Start: July 24, 2023 End: July 24, 2023 Team Status: Inactive Member Role Status Dates Dank Campo MD Primary Care Provide r, Attending Provider, Referring Provider Active Start: August 09, 2023 End: August 09, 2023 Importer Exporter Relationship Specialty Start Date End Date Dank Campo MD [address] [place] [address] PCP - General Family Medicine 12/10/17 Importer Exporter Relationship Specialty Start Date End Date Dank Campo MD [address] [place] [address] PCP - General Family Medicine 12/10/17 Team Status: Inactive Member Role Status Dates Dank Campo MD Primary Care Provider Active S tart: March 17, 2024 End: March 17, 2024 Rich Alvares APRN Attending Provider Active Start: March 17, 2024 End: March 17, 2024 Importer Exporter Relationship Specialty Start Date End Date Dank Campo MD [address] [place] [phone] PCP - General Family Medicine 03/12/24 Importer Exporter Relationship Specialty Start Date End Date Dank Campo MD [address] [place] [phone] PCP - General Family Medicine 08/17/23 Importer Exporter Relationship Specialty Start Date End Date Dank Campo MD [address] [place] [address] PCP - General Family Medicine 08/17/23 Importer Exporter Relationship Specialty Start Date End Date Dank Campo MD [address] [place] [address] PCP - General Family Medicine 08/17/23 Importer Exporter Relationship Specialty Start Date End Date Dank Campo MD [address] [place] [address] PCP - General Family Medicine 08/17/23 Importer Exporter Relationship Specialty Start Date End Date Dank Campo MD [address] [place] [address] PCP - General Family Medicine 08/17/23 Importer Exporter Relationship Specialty Start Date End Date Dank Campo MD [address] [place] [address] PCP - General Family Medicine 08/17/23 Importer Exporter Relationship Specialty Start Date End Date Dank Campo MD [address] [place] [id number] PCP - General Family Medicine 08/17/23 Team Status: Inactive Member Role Status Dates Dank Campo MD Primary Care Provider Active S tart: April 15, 2024 End: April 15, 2024 Rich Alavres APRN Attending Provider Active Start: April 15, 2024 End: April 15, 2024 REASON FOR VISIT (unrecogniz ed section and content) Reason Comments Diabetes Reason Comments Sleep Apnea DME: [facility] Specialty Diagnoses / Procedures Referred By Anabel t Referred To Contact Pulmonary Medicine / Sleep Medicine Diagnoses Obstructive sleep apnea syndrome Jyoti Roth APRN-STAMP PRESS OPERATOR [address] [place] [address] [facility] Pul Sleep Med [address] [place] [address] Referral ID Status Reason Start Date Expiration Date Visits Requested Visits Authorized [id number] Pending Review Specialty Services Required 08/13/2023 08/12/2024 [...] BE BASED ON THE PRIMARY CLINICAL RECORDS. [facility] [employer] [facility]. provides no warranty or guarantee of the accuracy or completeness of information in this document.
[2024-04-18 08:27] LABS: Basophils Absolute Auto 0.1 10^3/uL (0.0-0.1); Basophils Percent Auto 0.6 % (0.2-2.0); Eosinophils Absolute Auto 0.2 10^3/uL (0.0-0.7); Eosinophils Percent Auto 1.8 % (0.9-7.0); Hematocrit 40.7 % (42.0-54.0); Hemoglobin 13.6 g/dL (14.0-18.0); Immature Granulocytes Pct Auto 1.2 % (0.0-0.5); Lymphocytes Percent Auto 24.2 % (20.5-60.0); Mean Corpuscular HGB Conc 33.4 g/dL (29.9-35.2); Mean Corpuscular Hemoglobin 30.6 pg (25.9-34.0); Mean Corpuscular Volume 91.7 fL (80.0-94.0); Monocytes Absolute Auto 0.5 10^3/uL (0.3-0.8); Monocytes Percent Auto 6.3 % (1.7-12.0); Neutrophils Absolute Auto 5.4 10^3/uL (1.4-6.5); Neutrophils Percent Auto 65.9 % (43.0-75.0); Platelet Count 143 10^3/uL (150-450); Red Blood Count 4.44 10^6/uL (4.70-6.10); Red Cell Distribution Width 12.8 % (11.0-15.0); White Blood Count 8.2 10^3/uL (4.0-11.0)
[2024-04-18 09:09] LABS: Alanine Aminotransferase 36 U/L (16-63); Albumin Globulin Ratio 0.9; Albumin Level 3.3 g/dL (3.4-5.0); Alkaline Phosphatase 104 U/L (46-116); Anion Gap 14.5; Aspartate Amino Transferase 20 U/L (15-37); BUN Creatinine Ratio 22.8; Bilirubin Direct 0.1 mg/dL (0.0-0.2); Bilirubin Total 0.7 mg/dL (0.2-1.0); Calcium 8.4 mg/dL (8.5-10.1); Carbon Dioxide 28.3 mmol/L (21.0-32.0); Chloride 100 mmol/L (98-107); Chol HDL Ratio 4.4; Cholesterol 160 mg/dL (<=200); Estimated GFR (African America 49 (>=60 mL/min/1.73m^2); Estimated GFR (Non-African Ame 40 (>=60 mL/min/1.73m^2); Globulin 3.7 g/dL; Glucose 203 mg/dL (74-106); HDL Cholesterol 36 mg/dL (40-60); Potassium 4.8 mmol/L (3.5-5.1); Sodium 138 mmol/L (136-145); Triglycerides 218 mg/dL (<=150); VLDL CHOLESTEROL 43.6 mg/dL
[2024-04-22 12:10] LABS: QuantiFERON-TB Gold Plus Negative (Negative)
== END 2024-04-18 08:01 | disposition home or self-care (01) ==
LOC: RAD 08:03 → LAB 08:07
PROVIDERS: PCP Family Medicine; Visit Provider Dermatology
DX: L40.0 Psoriasis vulgaris (principal); Z79.899 Other long term (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 therapy
CPT/HCPCS: 36415; 80048; 80061; 80076; 85025; 86480

== ENCOUNTER 2024-04-21 09:04 | Day surgery (SDC) | payer MEDICARE, SELFPAY ==
[2024-04-21 09:28] LABS: Glucometer 275 mg/dL (74-106)
[2024-04-21 09:31] VITALS: BP 155/85; PULSE 88; TEMP 36.7; O2SAT 98
[2024-04-21 10:14] VITALS: BP 147/76; PULSE 83; O2SAT 94
[2024-04-21 10:15] VITALS: BP 147/81; PULSE 94; O2SAT 94
[2024-04-21] MEDS: BUPIVACAINE HCL 0.25% PF 25 MG/10 ML VIAL 8 ML INJ (10:20)
[2024-04-21] MEDS: LIDOCAINE HCL 2% 400 MG/20 ML MDV INJ (10:20)
--- NOTE | 2024-04-21 10:20 | W.PM.PROCNOT ---
Date of procedure: 04/21/24 Pre-op diagnosis: Pain due to lumbar spondylosis without myelopathy Post-op diagnosis: same as pre-op Procedure: Procedure: Bilateral L3-4, L4-5 medial branch block Medications: Bupivacaine 0.25% 6cc The patient was seen and examined in the preoperative holding area.? An informed consent was obtained and placed on the chart.? The patient was brought to the medical procedure unit and placed in the prone position.? A timeout was completed verifying correct patient, procedure site, positioning, plan, and special equipment.? Using aseptic technique, the needle was placed at left L3. Under direct fluoroscopic visualization a Quincke-tipped spinal needle was advanced to the junction of the superior articulating process with the transverse process at the designated medial branch segment.? Preceded by negative aspiration, the above-mentioned injectate was placed in 1 mL aliquots.? The procedure was repeated at left L4, 5.? The needle was removed and insertion site was covered. The same procedure, at the same levels, was completed on the right side. The patient was taken to the postprocedural recovery area and monitored for an appropriate length of time before found suitable for discharge in the company of a responsible adult. Anesthesia: Local Surgeon: Roma Lopez Pathology: none sent Condition: stable Disposition: no change
== END 2024-04-21 10:23 | disposition home or self-care (01) ==
LOC: SURGOUT 09:05
PROVIDERS: PCP Family Medicine; Visit Provider Anesthesiology
DX: M47.816 Spondylosis without myelopathy or radiculopathy, lumbar region (principal); E11.9 Type 2 diabetes mellitus without complications; Z79.4 Long term (current) use of insulin
CPT/HCPCS: 36415; 64493; 64494; 82948; J0665

== ENCOUNTER 2024-04-23 08:38 | Outpatient (OUT) | payer MEDICARE, SELFPAY ==
--- NOTE | 2024-04-23 08:58 | P.CN_ITS ---
Consult Note: HPI Data of Consult Patient: known to practice within the last 3 years Consult date: 10/01/23 Requesting Physician: Sandra Vu NP Primary Care Provider: Dank Bella MD Consult Narrative Reason for consult: low back pain Narrative: 68yom who presents for evaluation. underwent physical therapy within past 6 months, which did not provide lasting benefit. imaging shows multilevel degenerative changes, with stenosis at multiple levels, worst at l4-5. denies adverse med side effects. patient reporting pain 1/10 increasing to 8/10 with standing, walking, pushing, pulling, raking, yardwork, activity. Currently utilizing celebrex 200mg daily, flexeril 10mg TID PRN, asa, prozac, diazepam. since starting gabapentin 300mg BID patient has had complete resolution of painful diabetic neuropathy. Recently underwent bilateral L3-4 L5-S1 MBB #1 with >80% improvement in pain and functional ability immediately following and 6 hours after the procedure, pain up to 8/10 decreased to 1/10 with significant improvement in bending twisting and ability to tolerate physical activity. cc:: CC: Sandra Vu NP Review of Systems ROS Status of ROS 10 or more systems reviewed and unremark able except as noted in history and below Musculoskeletal Reports: [facility] Medical History (Updated 02/28/24 @ 09:23 by Sandra Vu NP) Low back pain ?M54.50 - Low back pain, unspecified (ICD-10) Neck pain ?M54.2 - Cervicalgia (ICD-10) Osteoarthritis ?M19.90 - Unspecified osteoarthritis, unspecified site (ICD-10) Anxiety ?F41.9 - Anxiety disorder, unspecified (ICD-10) Heartburn ?R12 - Heartburn (ICD-10) Hiatal hernia ?K44.9 - Diaphragmatic hernia without obstruction or gangrene (ICD-10) Acid reflux ?K21.9 - Gastro-esophageal reflux disease without esophagitis (ICD-10) Prostate cancer ?C61 - Malignant neoplasm of prostate (ICD-10) Enlarged prostate ?N40.0 - Benign prostatic hyperplasia without lower urinary tract symptoms (ICD-10) Diabetes ?E11.9 - Type 2 diabetes mellitus without complications (ICD-10) History of home ventilator ?Z99.11 - Dependence on respirator [ventilator] status (ICD-10) Smoker ?F17.200 - Nicotine dependence, unspecified, uncomplicated (ICD-10) Sleep apnea ?G47.30 - Sleep apnea, unspecified (ICD-10) COPD (chronic obstructive pulmonary disease) ?J44.9 - Chronic obstructive pulmonary disease, unspecified (ICD-10) Heart murmur ?R01.1 - Cardiac murmur, unspecified (ICD-10) Irregular heart beat ?I49.9 - Cardiac arrhythmia, unspecified (ICD-10) High cholesterol ?E78.00 - Pure hypercholesterolemia, unspecified (ICD-10) Hypertension ?I10 - Essential (primary) hypertension (ICD-10) Surgical History S/P foot surgery ?Z98.890 - Other specified postprocedural states (ICD-10) Hx laparoscopic cholecystectomy ?Z90.49 - Acquired absence of other specified parts of digestive tract (ICD- 10) S/P shoulder surgery ?Z98.890 - Other specified postprocedural states (ICD-10) S/P left knee arthroscopy ?Z98.890 - Other specified postprocedural states (ICD-10) History of appendectomy ?Z90.49 - Acquired absence of other specified parts of digestive tract (ICD- 10) Meds Home Medications and Allergies Home Medications ?Medication ?Instructions ?Recorded ?Confirmed ?Type aspirin 81 mg capsule 81 mg PO DAILY 10/02/23 04/21/24 History celecoxib 200 mg capsule mg 10/02/23 History insulin glargine 100 unit/mL 60 unit subcut DAILY 10/02/23 04/21/24 History subcutaneous solution (Lantus U-100 Insulin) insulin lispro 100 unit/mL subcut 10/02/23 History subcutaneous pen lansoprazole 30 mg capsule,delayed mg 10/02/23 History release lisinopril 10 mg tablet mg 10/02/23 History loperamide 2 mg capsule mg 10/02/23 History magnesium oxide 400 mg (241.3 mg mg 10/02/23 History magnesium) tablet metoprolol succinate 50 mg mg PO 10/02/23 History tablet,extended release 24 hr simvastatin 40 mg tablet mg 10/02/23 History semaglutide 1 mg/dose (4 mg/3 mL) 1 mg subcut QWEEK 11/05/23 04/21/24 History subcutaneous pen injector (Ozempic) gabapentin 300 mg capsule 300 mg PO BID #60 caps 02/28/24 04/21/24 Rx cyclobenzaprine 10 mg tablet 10 mg PO TID PRN muscle spasm #90 04/03/24 04/21/24 Rx tabs diazepam 5 mg tablet 5 mg PO Q8H 04/15/24 04/21/24 History fluoxetine 20 mg capsule 20 mg PO DAILY 04/15/24 04/21/24 History Allergies Allergy/AdvReac Type Severity Reaction Status Date / Time No Known Drug Allergies Allergy Verified 04/21/24 09:22 Exam Constitutional Documenting provider has reviewed patient's vital signs: yes Common normals: no apparent distress, oriented x3, healthy appearing, alert and well nourished General appearance: cooperative HENMT Common normals: normocephalic, hearing grossly normal bilaterally and moist oral mucous membranes Head and scalp: normocephalic Eye Common normals: PERRL Pupil: PERRL Neck & C-Spine Common normals: full ROM General: normal visual inspection Chest Common normals: inspection of chest normal Respiratory Common normals: normal respiratory effort, no retractions and no use of accessory muscles Back & Pelvis Lumbar spine/lower back: ROM limited, pain with ROM and straight leg raise negative bilaterally Sacroiliac joints: SI joints normal Other: positive axial facet loading tenderness over L3-L5 facets Extremity Common normals: normal to inspection and full ROM Neuro Common normals: oriented x3, CN's II-XII intact bilaterally, moves all extremities, no focal motor deficits, no sensory deficits noted and deep tendon reflexes 2+ bilaterally Sensorium/orientation: alert Motor exam: strength 5/5 throughout and no movement abnormalities noted Psych Common normals: mental status grossly normal, thought process normal, cooperative, affect normal, speech normal and activity/motor behavior normal Speech: normal speech Thought process: normal thought process Results Additional Findings Additional findings: If on a controlled substance or opioids, I have checked an [place]AR[place] report on this patient and there are no aberrancies noted in the prescribing history.??If on a controlled substance or opioid a drug screen was completed and reviewed within the last year, and if there has not been a drug screen completed we ordered one today to monitor higher risk, state monitored pain medication use. As part of providing excellent, safe, comprehensive care, the following was completed at our patient's visit: 1. A medication reconciliation and review to ensure accurate knowledge of current/active medications, including asking our patients to inform us about any [id number] medications or herbal remedies/nutritional supplements/alternative remedies. 2. A review to specifically ensure our patients have had annual screening for screening for depression, screening for tobacco use, and screening for unhealthy alcohol use. For concerning screenings had a discussion with the patient, provided patient education, and recommended follow-up with primary care provider when appropriate. If patient noted with a risk of falling, they received education on strength, gait, and balance training to prevent future risk of falling. Assessment and Plan Assessment and Plan (1) Lumbar spondylosis: Assessment and Plan: The patient has had over 3 months of moderate to severe low back pain with functional impairment and inadequate response to conservative care including NSAIDS (unless there are contraindication such as concurrent blood thinners), multiple oral or topical pain medications, and home exercise program/physical therapy.? Patient has completed >6 weeks of guided home exercise program and/or formal physical therapy program without relief of their symptoms.? I have reviewed the imaging of the lumbar spine and no red flags were identified.? We discussed the risks and benefits of the procedure with the patient, and we are NOT planning on using sedation as outlined in the guidelines from Medicare unless there is a documented reason that sedation would be strongly recommended.?? ?The procedure will be completed with fluoroscopic guidance.? (2) Painful diabetic neuropathy: (3) Myofascial pain: Plan bilateral L3-4 L4-5 facet medial branch block x2 working towards RFA DC flexeril continue gabapentin 300mg BID and celebrex 200mg daily f/u with PCP/cardiology regarding hypotension f/u after each injection
== END 2024-04-23 08:39 | disposition home or self-care (01) ==
LOC: PM 08:38
PROVIDERS: PCP Family Medicine; Visit Provider Nurse Practitioner
DX: M47.816 Spondylosis without myelopathy or radiculopathy, lumbar region (principal); E11.40 Type 2 diabetes mellitus with diabetic neuropathy, unspecified; M79.18 Myalgia, other site
CPT/HCPCS: G0463

== ENCOUNTER 2024-07-03 08:44 | Outpatient (OUT) | payer MEDICARE, SELFPAY ==
--- NOTE | 2024-07-03 09:09 | P.CN_ITS ---
Consult Note: HPI Data of Consult Patient: known to practice within the last 3 years Requesting Physician: Sandra Vu NP Primary Care Provider: Dank Bella MD Consult Narrative Reason for consult: low back pain and bilateral knee pain Narrative: 68yom who presents for evaluation. underwent physical therapy within past 6 months, which did not provide lasting benefit. imaging shows multilevel degenerative changes, with stenosis at multiple levels, worst at l4-5. denies adverse med side effects. hx of bilateral knee oa, responds well to steroid injections. patient reporting pain 5/10 increasing to 8/10 with standing, walking, pushing, pulling, raking, yardwork, activity. Currently utilizing celebrex 200mg daily and gabapentin, since starting gabapentin 300mg BID patient has had complete resolution of painful diabetic neuropathy. Previously underwent bilateral L3-4 L5-S1 MBB #1 with >80% improvement in pain and functional ability immediately following and 6 hours after the procedure, pain up to 8/10 decreased to 1/10 with significant improvement in bending twisting and ability to tolerate physical activity. LUIGI 40%. Patient would like to discuss MBB #2 working towards RFA as well as knee injections cc:: CC: Sandra Vu NP Review of Systems ROS Status of ROS 10 or more systems reviewed and unremark able except as noted in history and below Musculoskeletal Reports: back pain and joint pain [facility] Medical History (Updated 07/03/24 @ 09:12 by Sandra Vu NP) Low back pain ?M54.50 - Low back pain, unspecified (ICD-10) Neck pain ?M54.2 - Cervicalgia (ICD-10) Osteoarthritis ?M19.90 - Unspecified osteoarthritis, unspecified site (ICD-10) Anxiety ?F41.9 - Anxiety disorder, unspecified (ICD-10) Heartburn ?R12 - Heartburn (ICD-10) Hiatal hernia ?K44.9 - Diaphragmatic hernia without obstruction or gangrene (ICD-10) Acid reflux ?K21.9 - Gastro-esophageal reflux disease without esophagitis (ICD-10) Prostate cancer ?C61 - Malignant neoplasm of prostate (ICD-10) Enlarged prostate ?N40.0 - Benign prostatic hyperplasia without lower urinary tract symptoms (ICD-10) Diabetes ?E11.9 - Type 2 diabetes mellitus without complications (ICD-10) History of home ventilator ?Z99.11 - Dependence on respirator [ventilator] status (ICD-10) Smoker ?F17.200 - Nicotine dependence, unspecified, uncomplicated (ICD-10) Sleep apnea ?G47.30 - Sleep apnea, unspecified (ICD-10) COPD (chronic obstructive pulmonary disease) ?J44.9 - Chronic obstructive pulmonary disease, unspecified (ICD-10) Heart murmur ?R01.1 - Cardiac murmur, unspecified (ICD-10) Irregular heart beat ?I49.9 - Cardiac arrhythmia, unspecified (ICD-10) High cholesterol ?E78.00 - Pure hypercholesterolemia, unspecified (ICD-10) Hypertension ?I10 - Essential (primary) hypertension (ICD-10) Surgical History S/P foot surgery ?Z98.890 - Other specified postprocedural states (ICD-10) Hx laparoscopic cholecystectomy ?Z90.49 - Acquired absence of other specified parts of digestive tract (ICD- 10) S/P shoulder surgery ?Z98.890 - Other specified postprocedural states (ICD-10) S/P left knee arthroscopy ?Z98.890 - Other specified postprocedural states (ICD-10) History of appendectomy ?Z90.49 - Acquired absence of other specified parts of digestive tract (ICD- 10) Meds Home Medications and Allergies Home Medications ?Medication ?Instructions ?Recorded ?Confirmed ?Type aspirin 81 mg capsule 81 mg PO DAILY 10/02/23 04/21/24 History celecoxib 200 mg capsule mg 10/02/23 History insulin glargine 100 unit/mL 60 unit subcut DAILY 10/02/23 04/21/24 History subcutaneous solution (Lantus U-100 Insulin) insulin lispro 100 unit/mL subcut 10/02/23 History subcutaneous pen lansoprazole 30 mg capsule,delayed mg 10/02/23 History release lisinopril 10 mg tablet mg 10/02/23 History loperamide 2 mg capsule mg 10/02/23 History magnesium oxide 400 mg (241.3 mg mg 10/02/23 History magnesium) tablet metoprolol succinate 50 mg mg PO 10/02/23 History tablet,extended release 24 hr simvastatin 40 mg tablet mg 10/02/23 History semaglutide 1 mg/dose (4 mg/3 mL) 1 mg subcut QWEEK 05/20/24 11/04/24 History subcutaneous pen injector (Ozempic) gabapentin 300 mg capsule 300 mg PO BID #60 caps 02/28/24 04/21/24 Rx cyclobenzaprine 10 mg tablet 10 mg PO TID PRN muscle spasm #90 04/03/24 04/21/24 Rx tabs diazepam 5 mg tablet 5 mg PO Q8H 04/15/24 04/21/24 History fluoxetine 20 mg capsule 20 mg PO DAILY 04/15/24 04/21/24 History gabapentin 300 mg capsule 300 mg PO BID #60 caps 05/13/24 Rx gabapentin 300 mg capsule 300 mg PO BID #60 caps 06/12/24 Rx Allergies Allergy/AdvReac Type Severity Reaction Status Date / Time No Known Drug Allergies Allergy Verified 04/21/24 09:22 Exam Constitutional Documenting provider has reviewed patient's vital signs: yes Common normals: no apparent distress, oriented x3, healthy appearing, alert and well nourished General appearance: cooperative HENMT Common normals: normocephalic, hearing grossly normal bilaterally and moist oral mucous membranes Head and scalp: normocephalic Eye Common normals: PERRL Pupil: PERRL Neck & C-Spine Common normals: full ROM General: normal visual inspection Chest Common normals: inspection of chest normal Respiratory Common normals: normal respiratory effort, no retractions and no use of accessory muscles Back & Pelvis Lumbar spine/lower back: ROM limited, pain with ROM and straight leg raise negative bilaterally Sacroiliac joints: SI joints normal Other: positive axial facet loading tenderness over L3-L5 facets Extremity Common normals: normal to inspection and full ROM Right lower extremity: knee joint Left lower extremity: knee joint Other: mild edema, enlarged diameter, no effusions noted. increased pain with medial and lateral stress testing. mild crepitus. no instability noted Neuro Common normals: oriented x3, CN's II-XII intact bilaterally, moves all extremities, no focal motor deficits, no sensory deficits noted and deep tendon reflexes 2+ bilaterally Sensorium/orientation: alert Motor exam: strength 5/5 throughout and no movement abnormalities noted Psych Common normals: mental status grossly normal, thought process normal, cooperati ve, affect normal, speech normal and activity/motor behavior normal Speech: normal speech Thought process: normal thought process Results Additional Findings Additional findings: If on a controlled substance or opioids, I have checked an [place]AR[place] report on this patient and there are no aberrancies noted in the prescribing history.??If on a controlled substance or opioid a drug screen was completed and reviewed within the last year, and if there has not been a drug screen completed we ordered one today to monitor higher risk, state monitored pain medication use. As part of providing excellent, safe, comprehensive care, the following was completed at our patient's visit: 1. A medication reconciliation and review to ensure accurate knowledge of current/active medications, including asking our patients to inform us about any eefc-fsq-nyhqvln medications or herbal remedies/nutritional supplements/alternative remedies. 2. A review to specifically ensure our patients have had annual screening for screening for depression, screening for tobacco use, and screening for unhealthy alcohol use. For concerning screenings had a discussion with the patient, provided patient education, and recommended follow-up with primary care provider when appropriate. If patient noted with a risk of falling, they received education on strength, gait, and balance training to prevent future risk of falling. Assessment and Plan Assessment and Plan (1) Lumbar spondylosis: Assessment and Plan: The patient has had over 3 months of moderate to severe low back pain with functional impairment and inadequate response to conservative care including NSAIDS (unless there are contraindication such as concurrent blood thinners), multiple oral or topical pain medications, and home exercise program/physical therapy.? Patient has completed >6 weeks of guided home exercise program and/or formal physical therapy program without relief of their symptoms.? I have reviewed the imaging of the lumbar spine and no red flags were identified.? We discussed the risks and benefits of the procedure with the patient, and we are NOT planning on using sedation as outlined in the guidelines from Medicare unless there is a documented reason that sedation would be strongly recommended.?? ?The procedure will be completed with fluoroscopic guidance.? (2) Bilateral knee pain: (3) Bilateral primary osteoarthritis of knee: (4) Myofascial pain: (5) Painful diabetic neuropathy: Plan bilateral L3-4 L4-5 facet medial branch block #2 working towards RFA update bilateral knee xray to assess OA/chronic pain plan for bilateral knee injections with Dr Lopez continue HEP as tolerated continue current medications f/u after injection
== END 2024-07-03 08:45 | disposition home or self-care (01) ==
PROVIDERS: PCP Family Medicine; Visit Provider Nurse Practitioner
DX: M25.561 Pain in right knee (principal); M25.562 Pain in left knee; M17.0 Bilateral primary osteoarthritis of knee; M47.816 Spondylosis without myelopathy or radiculopathy, lumbar region; E11.40 Type 2 diabetes mellitus with diabetic neuropathy, unspecified; M79.18 Myalgia, other site
CPT/HCPCS: 73564; G0463

== ENCOUNTER 2024-07-03 09:21 | Outpatient (OUT) | payer MEDICARE, SELFPAY ==
--- NOTE | 2024-07-03 09:34 | XR_ITS ---
The [address] [address] Patient Name: GEGE SEYMOUR MRN: [id number] date: 1955 Sex: M Assigned Patient Location: [facility] Current Patient Location: [facility] Accession/Order Number: [id number] Exam Date: 07/03/2024 09:39 Report Date: 07/03/2024 10:40 At the request of: GLADIS GARCIA Procedure: XR knee KUSUM 4V EXAMINATION: XR knee KUSUM 4V HISTORY: Bilateral Knee Pain, Osteoarthritis COMPARISON: No relevant comparison available. FINDINGS: RIGHT FINDINGS: BONES: No acute fracture or dislocation. Moderate to severe tricompartmental osteoarthritis with marginal osteophyte formation. Extensive enthesopathic spurring proximal patella at the quadriceps insertion. Moderate narrowing medial joint space SOFT TISSUES: Negative. No visible soft tissue swelling. OTHER: Mild suprapatellar joint effusion LEFT FINDINGS: BONES: No acute fracture or dislocation. Moderate to severe tricompartmental osteoarthritis with marginal osteophyte formation. Extensive enthesopathic spurring proximal patella at the quadriceps insertion. Moderate narrowing medial joint space SOFT TISSUES: Negative. No visible soft tissue swelling. OTHER: Negative. XR/XR knee KUSUM 4V IMPRESSION: Moderate to severe bilateral tricompartmental arthritis Electronically authenticated by: SORIN SHORE Date: 07/03/2024 10:40
== END 2024-07-03 09:22 | disposition home or self-care (01) ==
LOC: RAD 09:22
PROVIDERS: PCP Family Medicine; Visit Provider Nurse Practitioner
DX: M25.561 Pain in right knee (principal); M25.562 Pain in left knee; M17.0 Bilateral primary osteoarthritis of knee
CPT/HCPCS: 73564

== ENCOUNTER 2024-07-14 08:22 | Day surgery (SDC) | payer MEDICARE, SELFPAY ==
[2024-07-14 08:35] VITALS: BP 135/70; PULSE 65; TEMP 36.2; O2SAT 100
[2024-07-14 08:41] LABS: Glucometer 242 mg/dL (74-106)
[2024-07-14 09:15] VITALS: BP 181/88; BP 182/94; PULSE 80; O2SAT 96; O2SAT 98
[2024-07-14] MEDS: BUPIVACAINE HCL 0.25% PF 25 MG/10 ML VIAL 8 ML INJ (09:19)
[2024-07-14] MEDS: LIDOCAINE HCL 2% 400 MG/20 ML MDV INJ (09:19)
--- NOTE | 2024-07-14 09:19 | W.PM.PROCNOT ---
Date of procedure: 07/14/24 Pre-op diagnosis: Pain due to lumbar spondylosis without myelopathy Post-op diagnosis: same as pre-op Procedure: Procedure: Bilateral L3-4, L4-5 medial branch block Medications: Bupivacaine 0.25% 6cc The patient was seen and examined in the preoperative holding area.? An informed consent was obtained and placed on the chart.? The patient was brought to the medical procedure unit and placed in the prone position.? A timeout was completed verifying correct patient, procedure site, positioning, plan, and special equipment.? Using aseptic technique, the needle was placed at left L3. Under direct fluoroscopic visualization a Quincke-tipped spinal needle was advanced to the junction of the superior articulating process with the transverse process at the designated medial branch segment.? Preceded by negative aspiration, the above-mentioned injectate was placed in 1 mL aliquots.? The procedure was repeated at left L4, 5.? The needle was removed and insertion site was covered. The same procedure, at the same levels, was completed on the right side. The patient was taken to the postprocedural recovery area and monitored for an appropriate length of time before found suitable for discharge in the company of a responsible adult. Anesthesia: Local Surgeon: Roma Lopez Pathology: none sent Condition: stable Disposition: no change
== END 2024-07-14 09:23 | disposition home or self-care (01) ==
LOC: SURGOUT 08:23
PROVIDERS: PCP Family Medicine; Visit Provider Anesthesiology
DX: M47.816 Spondylosis without myelopathy or radiculopathy, lumbar region (principal); E11.9 Type 2 diabetes mellitus without complications; Z79.4 Long term (current) use of insulin
CPT/HCPCS: 36415; 64493; 64494; 82948; J0665

== ENCOUNTER 2024-07-21 12:09 | Outpatient (OUT) | payer MEDICARE, SELFPAY ==
--- OUTSIDE RECORDS SUMMARY | 2024-07-21 12:13 | XMS_ITS | CCD ---
Author Organization [facility] Care Team Providers Care Networking Technology Instructor Name Role Phone DANK CAMPO Primary Care Physician MD Dank Campo Primary Care Provider MD Kike Bernal Attending Provider [phone] Asaad, Imad Unavailable FERNANDO ., MR REBECCA [...] NADERER, DR DANK Leon Primary Care Unavailable SALISBURY, DR SORIN Rodarte Consulting Unavailable NADERER, DR DANK Leon Admitting Unavailable NADERER, DR DANK Leon Attending Unavailable NADERER, DR DANK Leon Primary Care Unavailable ALBER, DR DANK Leon Consulting Unavailable MD Dank Campo Primary Care Provider MD Kike Bernal Attending Provider MD Dank Campo Attending Provider MD Dank Campo Attending Provider Alber RAYMUNDO, Dank Primary Care Provider Dank Campo MD Primary Care Provider MD Dank Campo Primary Care Provider [phone] KERRI Bosewll Attending Provider [phone] MD Dank Campo Referring Provider Dank Campo Primary Care Unavailable Naderer, Dank Attending Unavailable NadereDank owens Admitting Unavailable Asaad, Imad Attending Unavailable Naderegraciela, Dank Primary Care Unavailable Asaad, Imad Admitting Unavailable Fredy Boswell Admitting Unavailable Fredy Boswell Attending Unavailable Felixeregraciela, Dank Primary Care Unavailable Naderer, Dank Primary Care Unavailable Asaad, Imad Admitting Unavailable Asaad, Imad Attending Unavailable Naderegraciela, Dank Attending Unavailable Naderer, Dank Admitting Unavailable Naderer, Dank Primary Care Unavailable Naderer, Dank Attending Unavailable FelixereDank owens Referring Unavailable Naderer, Dank Admitting Unavailable Naderer, Dank Primary Care Unavailable Naderer, Dank Primary Care Unavailable Jyoti Roth Admitting Unavailable Jyoti Roth Attending Unavailable GREGORIA RALPH Referring Unavailable FELIXEREGraciela, DANK Primary Care Unavailable Peterson PETERSEN Attending Unavailable ROSALVA MURO Attending Unavailable ROSALVA MURO Admitting Unavailable Peterson PETERSEN Attending Unavailable DEJUAN PETERSEN Attending Unavailable Peterson PETERSEN Attending Unavailable Peterson PETERSEN Attending Unavailable BLANCA RALPHE L Attending Unavailable DANK CAMPO Referring Unavailable FELIXERER, DANK Primary Care Unavailable HANNA BUTCHER Attending Unavailable FELIXEREDANK Owens Referring Unavailable NADERER, DANK Primary Care Unavailable Alber RAYMUNDO, Dank Primary Care Provider Dank Campo MD Primary Care Provider GREGORIA RALPH Referring Unavailable NADEREGraciela, DANK Primary Care Unavailable JOSE RALPHCIE L Referring Unavailable NADERER, DANK Primary Care Unavailable HANNA BUTCHER Attending Unavailable HANNA BUTCHER Referring Unavailable ALBER, DANK Primary Care Unavailable FERNANDO, REBECCA Cornell Referring Unavailable NADERER, DANK Primary Care Unavailable PETKERLINE, ASHLI Scott Attending Unavailable JR. JOON, JOHANNE Vidales Attending Unavaila ble RUSHER, DEXTER Leon Attending Unavailable NADERER, DANK Referring Unavailable NADERER, DANK Attending Unavailable RUSHER, DEXTER Leon Attending Unavailable RUSHER, DEXTER Leon Attending Unavailable ROTHJYOTI Attending Unavailable NADERER, DANK Attending Unavailable RUSHER, DEXTER Leon Attending Unavailable PETZNDHARA, ASHLI Scott Attending Unavailable RUSHER, DEXTER Leon Attending Unavailable NADERER, DANK Attending Unavailable RUSHER, DEXTER Leon Attending Unavailable NADERER, DANK Attending Unavailable PETZNDHARA, ASHLI Scott Attending Unavailable JR. JOON, JOHANNE Vidales Attending Unavaila graciela HDEZ JR., JOHANNE Vidales Referring Unavaila ble REBECCA DIAS Attending Unavailable DIAS, REBECCA Cornell Attending Unavailable PETASHLI CHURCHILL Attending Unavailable DIAS, REBECCA Cornell Attending Unavailable BERKOWITZALMA Attending Unavailable DIAS, REBECCA J Referring Unavailable VICKKADEN Attending Unavailable DIAS, REBECCA Cornell Referring Unavailable KADEN HICKMAN Attending Unavailable DIAS, REBECCA Cornell Referring Unavailable NADERER, DANK Attending Unavailable VALENTINE SIMON Attending Unavailable DIAS, REBECCA Cornell Referring Unavailable RUS, DEXTER Leon Attending Unavailable RUS, DEXTER Leon Referring Unavailable VICKKADEN Attending Unavailable DIAS, REBECCA Cornell Referring Unavailable NANDA WARD Attending Unavailable DIAS, REBECCA J Referring Unavailable BERKOWITZALMA Attending Unavailable DIAS, REBECCA J Referring Unavailable BERKOWITZALMA Attending Unavailable DIAS, REBECCA J Referring Unavailable JUSTINA CARRILLO Attending Unavailable DIAS, REBECCA J Referring Unavailable BERKOWITZALMA Attending Unavailable DIAS, REBECCA J Referring Unavailable DIAS, REBECCA Cornell Attending Unavailable KADEN HICKMAN Attending Unavailable DIAS, REBECCA J Referring Unavailable BERKOWITZALMA Attending Unavailable DIAS, REBECCA J Referring Unavailable MAUREEN THOMPSON Attending Unavailable DIAS, REBECCA J Referring Unavailable Jessica RAYMUNDO, Roma Arteaga Attending Unavailable Gistephanieitis , Roma Arteaga Attending Unavailable Jessica RAYMUNDO, Roma Arteaga Attending Unavailable Giradha RAYMUNDO, Roma Arteaga Attending Unavailable Giedraitis MD, Roma Arteaga Attending Unavailable Jessica RAYMUNDO, Roma Arteaga Attending Unavailable Allergies Allergy Classification Reported Allergen(s) Allergy Type Date of Onset Reaction(s) Facility (1 source) No Known Medication Allergies; Translations: [No Known Medication Allergies] Propensity to adverse reactions (disorder) [facility] Repository Medications Current Medications Medication [...] Ordered Start: 01-30-2019 take 1 capsule by [facility] twice daily celecoxib (CeleBREX) 200 MG capsule Indications: Lumbago with sciatica, right side TAKE 1 CAPSULE BY MOUTH TWICE DAILY 60 capsule 5 01/07/2024 Active Continuous Blood Gluc Sensor (Dexcom G7 Sensor) misc (20 sources) Start: 06-05-2023 End: 06-04-2024 Continuous Blood Gluc Sensor (Dexcom G7 Sensor) misc Indications: Type 2 diabetes mellitus with diabetic polyneuropathy, with long-term current use of insulin (CMS/HCC) Inject 1 Device under the skin See administration instructions Change every 10 days 9 each 3 06/05/2023 06/04/2024 Active Continuous Blood Gluc Sensor (FreeStyle Cornelius 2 Sensor) misc (2 sources) Start: 05-23-2023 End: 07-30-2023 Continuous Blood Gluc Sensor (FreeStyle Cornelius 2 Sensor[place] [facility] [place]ications: Type 2 diabetes mellitus with diabetic polyneuropathy, with long-term current use of insulin ([facility]) Use as directed 2 each 11 05/23/2023 07/30/2023 Discontinued (Therapy completed) Continuous Glucose Sensor (Dexcom G7 Sensor) [facility] [place] (12 sources) Start: 06-13-2024 Continuous Glu cose Sensor (Dexcom G7 Sensor) [facility] [place] Indications: Type 2 diabetes mellitus with diabetic polyneuropathy, with long-term current use of insulin ([facility]) USE DIRECTED to check BLOOD SUGAR *change EVERY TEN days * 9 each 3 06/13/2024 Active cyclobenzaprine (20 sources) Muscle Relaxant Start: 04-15-2024 cyclobenzaprin e Active PO April 15, 2024 12:00am Start: 01-19-2024 End: 05-28-2024 take 1 tablet by mouth in the morning, then take 1 tablet by mouth in the evening, then take 1 tablet by mouth at bedtime cyclobenzaprine (Flexeril) 10 MG tablet Take 10 mg by mouth in the morning and 10 mg in the evening and 10 mg before bedtime. 01/19/2024 05/28/2024 Discontinued diazePAM 5 mg oral tablet (18 sources) Benzodiazepine Start: 11-14-2023 End: 04-08-2024 take 1 tablet by mouth three times daily as needed for anxiety diazePAM (Valium) 5 MG tablet Indications: JARAD (generalized anxiety disorder) ([facility]) Take 1 tablet (5 mg) by mouth [...] 06/21/2023 Active fluorometholone 1 mg/ml ophthalmic suspension (20 sources) Corticosteroid Start: 12-28-2022 take 1 drop(s) into the eye(s) four times daily, then take 1 drop(s) into the eye(s) twice daily fluorometholone (FML) 0.1 % ophthalmic suspension instill 1 (ONE) DROP IN BOTH EYES FOUR TIMES DAILY FOR 7 DAYS then instill 1 (ONE) DROP IN BOTH EYES TWICE DAILY FOR 7 DAYS 12/28/2022 Active FLUoxetine 40 mg oral capsule (20 sources) Serotonin Reuptake Inhibitor Start: 05-28-2024 take 1 capsule by mouth once daily FLUoxetine (PROzac) 40 MG capsule Indications: JARAD (generalized anxiety disorder) (CMS/HCC) Take 1 capsule (40 mg) by mouth Daily 90 capsule 3 05/28/2024 Active Start: 04-23-2024 End: 05-28-2024 take 1 capsule by mouth once daily FLUoxetine (PROzac) 20 MG capsule Indications: JARAD (generalized anxiety disorder) (CMS/HCC) TAKE 1 CAPSULE BY MOUTH DAILY 30 capsule 2 04/23/2024 05/28/2024 Discontinued (Reorder) Start: 10-30-2023 take 1 capsule by mo [facility] once daily FLUoxetine (PROzac) 20 MG capsule Indications: JARAD (generalized anxiety disorder) (CMS/HCC) TAKE 1 CAPSULE BY MOUTH DAILY 30 capsule 2 01/07/2024 Active fluticasone 0.05 mg/inh Nasal [place] (5 sources) Start: 07-28-2019 fluticasone 0. 05 mg/inh Nasal [place] Nasal, Daily, Refill(s) 0 Start Date: 07/28/19 Status: Ordered gabapentin (20 sources) Anti-epileptic Agent Start: 04-15-2024 gabapentin Active PO April 15, 2024 12:00am gabapentin (Neur ontin) 100 MG capsule Take by mouth Active 3 ml insulin glargine 100 unt/ml pen injector (20 sources) Insulin Analog Start: 04-29-2024 End: 04-29-2025 insulin glargine (Lantus SoloStar) 100 UNIT/ML pen Indications: Type 2 diabetes mellitus with diabetic polyneuropathy, with long-term current use of insulin ([facility]) Inject 65 Units under the skin at bedtime 60 mL 3 04/29/2024 04/29/2025 Active Start: 08-09-2023 End: 08-08-2024 insulin glargine (Lantus Jahaira oStar) 100 UNIT/ML pen Indications: Type 2 diabetes mellitus with diabetic polyneuropathy, with long-term current use of insulin ([facility]) Inject 60 Units under the skin at bedtime 60 mL 3 08/09/2023 04/29/2024 Discontinued (Dose adjustment) Start: 04-27-2023 Insulin Glargi ne (Lantus Solostar [...] pen injector (20 sources) Insulin Analog Start: 04-29-2024 insulin lispro (HumaLOG) 100 UNIT/ML injection Indications: Type 2 diabetes mellitus with diabetic polyneuropathy, with long-term current use of insulin (CMS/HCC) INJECT 12 UNITS BREAKFAST, 25 UNITS LUNCH/ DINNER PLUS CORRECTIONS OF 1:30 > 150MG/DL ( MAX 100 UNITS A DAY) 90 mL 3 06/16/2024 Active Start: 03-17-2024 insulin lispro (HumaLOG) 100 UNIT/ML injection Indications: Type 2 diabetes mellitus with diabetic polyneuropathy, with long-term current use of insulin (CMS/HCC) INJECT 5-10 UNITS BREAKFAST, 30 UNITS LUNCH/ DINNER PLUS CORRECTIONS OF 1:30 > 150MG/DL ( MAX 100 UNITS A DAY) 90 mL 3 03/17/2024 Active Start: 10-30-2023 End: 04-29-2024 insulin lispro (HumaLOG) 100 UNIT/ML injection Indications: Type 2 diabetes mellitus with diabetic polyneuropathy, with long-term current use of insulin (CMS/HCC) INJECT 5-10 UNITS BREAKFAST, 30 UNITS LUNCH/ DINNER PLUS CORRECTIONS OF 1:30 > 150MG/DL ( MAX 100 UNITS A DAY) 90 mL 3 03/17/2024 04/29/2024 Discontinued (Dose adjustment) Start: 06-05-2023 insulin lispro (HumaLOG) 100 UNIT/ML [...] (20 sources) Angiotensin Converting Enzyme Inhibitor Start: 06-12-2024 take 1 tablet by mouth twice daily lisinopril 10 MG tablet Indications: Essential (primary) hypertension (CMS/HCC) TAKE 1 TABLET BY MOUTH TWICE DAILY 60 tablet 5 06/12/2024 Active Start: 04-23-2024 take 1 tablet by maciej th once daily lisinopril 10 MG tablet Indications: Essential (primary) hypertension (CMS/HCC) Take 1 tablet (10 mg) by mouth Daily 04/23/2024 Active Start: 12-18-2023 End: 04-23-2024 take 1 tablet by mouth twice daily lisinopril 10 MG tablet Indications: Essential (primary) hypertension (CMS/HCC) TAKE 1 TABLET BY MOUTH TWICE DAILY 60 tablet 5 12/18/2023 04/23/2024 Discontinued Start: 06-20-2023 take 1 tablet by maciej [...] Active loperamide hydrochloride 2 mg oral capsule (20 sources) Opioid Agonist Start: 04-27-2023 End: 03-03-2024 take 2 mg by mouth every two hours Loperamide Active 2 MG PO Q2H April 27, 2023 12:00am Start: 12-10-2019 End: 03-27-2024 take 2 mg by mouth twice daily Loperamide Active 2 MG PO Twice daily 60 30 March 27, 2024 9:17am magnesium oxide 400 mg oral tablet (20 sources) Start: 08-09-2023 take 1 tablet by [...] DAILY 30 tablet 5 02/19/2024 Active Start: 08-13-2023 take 1 tablet by maciej th once daily metoprolol succinate XL (Toprol-XL) 50 MG 24 hr tablet Indications: Ventricular premature depolarization TAKE 1 TABLET BY MOUTH DAILY 30 tablet 5 08/13/2023 Active Start: 03-31-2019 take 1 mg by [...] (Ozempic, 1 MG/DOSE,) 4 MG/3ML solution pen-injector (20 sources) Start: 10-30-2023 End: 10-29-2024 inject 1 [...] tablet (20 sources) HMG-CoA Reductase Inhibitor Start: 06-12-2024 take 1 tablet by mouth at bedtime simvastatin (Zocor) 40 MG tablet Indications: Hyperlipidemia, unspecified (CMS/HCC) TAKE 1 TABLET BY MOUTH AT BEDTIME 30 tablet 5 06/12/2024 Active Start: 03-31-2019 simvastatin Or al, Refills(s) 0 Start Date: 03/31/19 Status: Ordered Start: 01-30-2019 take 1 tablet by maciej th at bedtime simvastatin (Zocor) 40 MG tablet Indications: Hyperlipidemia, unspecified (CMS/HCC) Take 1 tablet (40 mg) by mouth at bedtime 30 tablet 5 12/27/2023 Active spironolactone 50 mg oral tablet (19 sources) Aldosterone Antagonist Start: 12-18-2023 take 1 tablet by mouth once daily spironolactone (Aldactone) 50 MG tablet Indications: Localized edema TAKE 1 TABLET BY MOUTH DAILY 30 tablet 5 12/18/2023 Active Start: 04-27-2023 End: 10-30-2023 take 50 mg by mouth once daily Spironolactone Discontinued 50 MG PO Daily April 27, 2023 1:00am October 30, 2023 1:56pm 1 ml tildrakizumab-asmn 100 mg/ml prefilled syringe (20 sources) Interleukin-23 Antagonist Start: 10-05-2023 tildrakizumab (Ilumya) 100 MG/ML injection Inject under the skin 10/05/2023 Active tiZANidine 4 mg oral tablet (20 sources) Central alpha-2 Adrenergic Agonist Start: 05-28-2024 take 1 tablet by mouth three times daily as needed for muscle spasms tiZANidine (Zanaflex) 4 MG tablet Indications: Lumbar spondylosis Take 1 tablet (4 mg) by mouth 3 (three) times a day as needed for muscle spasms 60 tablet 3 05/28/2024 Active triamcinolone acetonide 1 mg/ml topical cream (20 sources) Corticosteroid Start: 04-17-2024 triamcinolone (Kenalog) 0.1 % cream APPLY TO THE AFFECTED AREA(S) (PSORIASIS ON TRUNK AND ALL EXTREMITIES) DAILY NEEDED SUNDAY THROUGH SUNDAY DO NOT USE ON FACE) 04/17/2024 Active Completed/Discontinued Medications Medication Drug Class(es) Dates Sig (Normalized) Sig (Original) acetaminophen 325 mg / oxyCODONE hydrochloride 5 mg oral tablet (3 sources) Opioid Agonist Start: 04-24-2024 End: 04-29-2024 take 1 tablet by mouth every six hours for pain oxyCODONE-acetami nophen (Percocet) 5-325 MG tablet Indications: Internal derangement of left shoulder Take 1 tablet by mouth every 6 (six) hours if needed for moderate pain for up to 5 days 20 tablet 04/24/2024 04/29/2024 Discontinued [id number] 200 actuat albuterol 0.09 mg/actuat metered dose inhaler (2 sources) beta2-Adrenergic Agonist Start: 12-22-2020 End: 08-15-2023 take 2 puff(s) by inhalation every four hours as needed for wheezing albuterol (PROVENTIL HFA;VENTOLIN HFA) 90 mcg/actuation inhaler Indications: Chronic obstructive pulmonary disease, unspecified COPD type ([facility]) Inhale 2 puffs every 4 (four) [...] APPLIC MO Four times daily 56 December 08, 2020 [...] Fluticasone Propionate (Flonase Allergy Relief) 50 mcg/actuation [place],Suspension Discontinued 1 SPRAY INTRANASAL Daily February 11, 2020 12:00am July 24, 2022 1:24pm Start: 07-28-2019 fluticasone 0. 05 mg/inh Nasal [place] Nasal, Daily, Refill(s) 0 Start Date: 07/28/19 [...] mg by mouth three times daily Pyridostigmine [place] Discontinued 60 MG PO Three times daily [...] te Episodic/Chronic Acute and unspecified renal failure (20 sources) Renal failure syndrome; Translations: [Unspecified kidney failure] Onset: 9 12-04-2022 Chronic Anxiety disorders (20 sources) Generalized anxiety disorder; Translations: [Generalized anxiety [...] Onset: 4 Episodic Deficiency and other anemia (20 sources) Iron deficiency anemia due to blood [...] Onset: 3 Episodic Disorders of lipid metabolism (20 sources) Hypercholesterolemia; Translations: [Pure hypercholesterolemia, unspecified] Onset: 3 01-19-2019 Chronic Esophageal disorders (20 sources) Gastroesophageal reflux disease; Translations: [Gastro-esophageal reflux disease without esophagitis] Onset: 3 01-30-2019 Chronic Esophageal disorders (1 source) Esophageal disorders; Translations: [Gastro-esophageal reflux disease without esophagitis] Onset: 4 Essential hypertension (20 sources) Hypertensive disorder; Translations: [Benign essential hypertension] Onset: 3 01-19-2019 Chronic Hemorrhoids (7 sources) Hemorrhoids; Translations: [Unspecified hemorrhoids] Episodic Hyperplasia of prostate (20 sources) Benign prostatic hypertrophy with outflow obstruction; Translations: [Benign prostatic hyperplasia with lower urinary tract symptoms] Onset: 7 Chronic Malaise and fatigue (20 sources) Fatigue; Translations: [Chronic fatigue, unspecified] Onset: 4 10-04-2023 Chronic Nausea and vomiting (1 source) Vomiting, unspecified; Translations: [Vomiting, unspecified] Onset: 4 Episodic Osteoarthritis (20 sources) Arthritis of left knee; Translations: [Unilateral primary osteoarthritis, left knee] Onset: 3 12-04-2022 Chronic Other aftercare (1 source) Other nursing home (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 therapy; Translations: [OTH [facility] CURRENT DRUG THERAPY] Onset: 3 Episodic Other and unspecified benign neoplasm (5 sources) History of polyp of colon; Translations: [Personal history of colonic polyps] Episodic Other bone disease and musculoskeletal deformities (20 sources) Posterior calcaneal exostosis; Translations: [Juvenile osteochondrosis of tarsus, right ankle] Onset: 3 12-04-2022 Chronic Other connective tissue disease (2 sources) Pain in left foot; Translations: [Pain in left foot] 05-29-2024 Episodic Other diseases of kidney and ureters (1 source) Urinary tract obstruction; Translations: [Other obstructive and reflux uropathy] Onset: 2 Episodic Other ear and sense organ disorders (20 sources) Chronic right myringitis; Translations: [Chronic myringitis, [...] abdomen] 04-15-2024 Episodic Other nervous system disorders (20 sources) Difficulty walking; Translations: [Difficulty in walking, not elsewhere classified] Onset: 3 12-04-2022 Chronic Other nervous system disorders (20 sources) Bilateral carpal tunnel syndrome; Translations: [Carpal tunnel syndrome, bilateral upper limbs] Onset: 4 10-04-2023 Chronic Other non-traumatic joint disorders (4 sources) Derangement of left shoulder joint; Translations: [Other specific joint derangements of left shoulder, not elsewhere classified] 03-24-2024 Chronic Other non-traumatic joint disorders (13 sources) Pain in left shoulder; Translations: [Pain in joint, shoulder region] 05-26-2024 Episodic Other nutritional; endocrine; and metabolic disorders (20 sources) Body mass index 30+ - obesity; Translations: [Body mass index (BMI) 31.0-31.9, adult] Onset: 4 08-29-2023 Chronic Other nutritional; endocrine; and metabolic disorders (20 sources) Severe obesity; Translations: [Morbid (severe) obesity due to excess calories] Onset: 3 07-30-2023 Chronic Other screening for suspected conditions (not mental disorders or infectious disease) (10 sources) Raised prostate specific antigen; Translations: [Elevated prostate specific antigen [PSA]] Onset: 2 08-05-2021 Episodic Other upper respiratory disease (20 sources) Allergic rhinitis; Translations: [Allergic rhinitis, unspecified] Onset: 3 12-04-2022 Chronic Other upper respiratory disease (20 sources) Rhinitis medicamentosa; Translations: [Chronic rhinitis] Onset: 3 12-04-2022 Chronic Residual codes; unclassified (20 sources) Obstructive sleep apnea syndrome; Translations: [Obstructive [...] apnea Onset: 4 Chronic Residual codes; unclassified (20 sources) Hypersomnia; Translations: [Hypersomnia, unspecified] Onset: 4 10-04-2023 Chronic Residual codes; unclassified (1 source) Other specified postprocedural states; Translations: [Other postprocedural status] 07-24-2023 Episodic Residual codes; unclassified (20 sources) History of arthroscopic procedure on shoulder; Translations: [Other specified postprocedural states] 05-09-2024 Episodic Spondylosis; intervertebral disc disorders; other back problems (20 sources) Lumbar spondylosis; Translations: [Spondylosis without myelopathy or radiculopathy, lumbar region] Onset: 3 06-07-2023 Chronic Superficial injury; contusion (2 sources) Contusion of left foot; Translations: [Contusion of left foot, initial encounter] 05-29-2024 Episodic Past or Other Problems Problem Classification Problem Date Documented Da te Episodic/Chronic Acquired foot deformities (20 sources) Right foot drop; Translations: [Foot drop, right foot] Onset: 10-09-2023 10-09-2023 Episodic Conditions associated with dizziness or vertigo (20 sources) Lightheadedness; Translations: [Dizziness and giddiness] Onset: 11-19-2018 12-04-2022 Episodic Deficiency and other anemia (20 sources) Anemia; Translations: [Anemia, unspecified] Onset: 12-04-2022 01-19-2019 Episodic Gastrointestinal hemorrhage (1 source) Melena; Translations: [Melena] Onset: 04-27-2023 Episodic Genitourinary symptoms and ill-defined conditions (20 sources) Nocturia; Translations: [Proteinuria] Onset: 12-04-2022 03-31-2019 Episodic Headache; including migraine (20 sources) Migraine; Translations: [Migraine, unspecified, not intractable, without status migrainosus] Onset: 12-04-2022 Resolved: 06-07-2023 01-19-2019 Chronic Malaise and fatigue (20 sources) Fatigue; Translations: [Other fatigue] Onset: 11-19-2018 12-04-2022 Episodic Mood disorders (6 sources) Mood disorders Onset: 06-29-2020 06-29-2020 Other aftercare (20 sources) Long-term current use of insulin; Translations: [salvage determiner (current) use of insulin] Onset: 12-04-2022 12-04-2022 Episodic Other aftercare (20 sources) Long-term current use of drug therapy; Translations: [Other exterminator helper (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 therapy] Onset: 08-29-2023 08-29-2023 Episodic Other aftercare (2 sources) Patient encounter status; Translations: [Other exterminator helper (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 therapy] Onset: 08-29-2023 08-29-2023 Episodic Other circulatory disease (20 sources) Orthostatic hypotension; Translations: [Orthostatic hypotension] Onset: 11-21-2018 12-04-2022 Episodic Other connective tissue disease (4 sources) Pain in right foot; Translations: [PAIN IN RIGHT FOOT] Onset: 04-14-2022 Episodic Other connective tissue disease (20 sources) Full thickness rotator cuff tear; Translations: [Complete rotator cuff tear or rupture of right shoulder, not specified as traumatic] Onset: 12-04-2022 12-04-2022 Episodic Other connective tissue disease (20 sources) Pain in right hand; Translations: [Pain in right hand] Onset: 10-04-2023 10-04-2023 Episodic Other ear and sense organ disorders (20 sources) Bilateral hearing loss; Translations: [Unspecified hearing loss, bilateral] Onset: 12-04-2022 Resolved: 06-07-2023 06-07-2023 Chronic Other nervous system disorders (20 sources) Carpal tunnel syndrome; Translations: [Carpal tunnel syndrome, unspecified upper limb] Onset: 12-04-2022 Resolved: 06-07-2023 06-07-2023 Chronic Other nervous system disorders (20 sources) Muscle fasciculation; Translations: [Fasciculation] Onset: 10-04-2023 10-04-2023 Episodic Otitis media and related conditions (20 sources) Dysfunction of right eustachian tube; Translations: [Unspecified Eustachian tube disorder, right ear] Onset: 12-04-2022 12-04-2022 Episodic Residual codes; unclassified (20 sources) Bilateral lower limb edema; Translations: [Localized edema] Onset: 06-07-2023 06-07-2023 Episodic Residual codes; unclassified (1 source) Other specified postprocedural states; Translations: [Other specified postprocedural states] Onset: 07-24-2023 Episodic Residual codes; unclassified (20 sources) Memory impairment; Translations: [Other amnesia] Onset: 10-04-2023 10-04-2023 Episodic Residual codes; unclassified (20 sources) Family history of Parkinson's disease; Translations: [Family history of epilepsy and other diseases of the nervous system] Onset: 10-09-2023 10-09-2023 Episodic Screening and history of mental health and substance abuse codes (3 sources) Tobacco use and exposure - finding; Translations: [Personal history of nicotine dependence] Onset: 08-15-2023 08-15-2023 Episodic Spondylosis; intervertebral disc disorders; other back problems (20 sources) Lumbar radiculopathy; Translations: [Radiculopathy, lumbar region] Onset: 10-09-2023 10-09-2023 Episodic Substance-related disorders (20 sources) Cigarette smoker ; Translations: [Nicotine dependence, cigarettes, uncomplicated] Onset: 12-04-2022 Resolved: 06-07-2023 10-06-2019 Chronic Results Test Name Value Interpretation Reference Range Facility XR Foot - left 3 [facility] Result: 3 vi ews left foot: Weight-bearing: DP, oblique, lateral: 05/29/2024: Unremarkable for fracture or stress fracture changes. Unremarkable for acute osseous or joint pathology. Incidental findings include os peroneum within the cuboid groove; enthesophyte formation at the 5th metatarsal styloid. [facility] Radiology Study observation (narrative) [facility] HbA1c (Bld) [Mass fraction]o n 04-29-2024 Interpretation and review of laboratory results Normal [facility] Laboratory - Hematology and Cell countson 04-29-2024 HbA1c (Bld) [Mass fraction] 7.9 % [facility] ALL CBC WITH AUTO DIFFon BASOPHILS ABSOLUTE AUTO 0.1 [facility] Basophils/100 WBC (Bld) 0.6 % 0.2 - 2.0 % [facility] Eosinophils/100 WBC (Bld) 1.8 % 0.9 - 7.0 % [facility] Erythrocyte distribution width (RBC) [Ratio] 12.8 % 11.0 - 15.0 % [facility] Hematocrit (Bld) [Volume fraction] 40.7 % Low 42.0 - 54.0 % [facility] Hemoglobin (Bld) [Mass/Vol] 13.6 g/dL Low 14.0 - 18.0 g/dL [facility] IMMATURE GRANULOCYTES ABS AUTO 0.1 High [facility] Immature granulocytes/100 WBC (Bld) 1.2 % High 0.0 - 0.5 % [facility] Interpretation and review of laboratory results Abnormal [facility] LYMPHOCYTES ABSOLUTE AUTO 2 [facility] Lymphocytes/100 WBC (Bld) 24.2 % 20.5 - 60.0 % [facility] MCH (RBC) [Entitic mass] 30.6 pg 25.9 - 34.0 pg [facility] MCHC (RBC) [Mass/Vol] 33.4 g/dL 29.9 - 35.2 g/dL [facility] MCV (RBC) [Entitic vol] 91.7 fL 80.0 - 94.0 fL [facility] MONOCYTES ABSOLUTE AUTO 0.5 [facility] Monocytes/100 WBC (Bld) 6.3 % 1.7 - 12.0 % [facility] NEUTROPHILS ABSOLUTE AUTO 5.4 [facility] Neutrophils/100 WBC (Bld) 65.9 % 43.0 - 75.0 % [facility] Platelet mean volume (Bld) [Entitic vol] 9 fL Low 9.5 - 13.5 fL [facility] TBH EO # 0.2 [facility] TB PLT 143 Low [facility] RBC 4.44 Low [facility] WBC 8.2 [facility] BASIC METABOLIC PANLon 03-18 Anion gap [Moles/Vol] 9 mmol/L Normal 5-15 [facility] Comment on above: Performed By: #### C FLIP BMP, PINR #### [facility] ([id number]) [address] [place] [address] Calcium [Mass/Vol] 9.7 mg/dL Normal 8.5-10.5 [facility] Comment on above: Performed By: #### C FLIP BMP, PINR #### [facility] ([id number]) [address], [address] [place] [address] Chloride [Moles/Vol] 99 mmol/L Normal 98-109 [facility] Comment on above: Performed By: #### Flash BCA, BMP, PINR #### [facility] ([id number]) [address], [address] [place] [address] CO2 [Moles/Vol] 23 mmol/L Normal 22-32 [facility] Comment on above: Performed By: #### Flash BCA, BMP, PINR #### [facility] ([id number]) [address], [address] [place] [address] Creatinine [Mass/Vol] 1.60 mg/dL High 0.60-1.30 [facility] Comment on above: Result Comment: METH OD TRACEABLE TO IDMS STANDARD Performed By: #### C FLIP BMP, PINR #### [facility] ([id number]) [address] [address] [place] [address] GFR/1.73 sq M.predicted among non-blacks MDRD (S/P/Bld) [Vol rate/Area] 47 mL/min/{1.73_m2} Low >59 [facility] Comment on above: Result Comment: Reported eGFR is based on the CKD-EPI 2020 equation that does not use a race coefficient. Performed By: #### C FLIP BMP, PINR #### [facility] ([id number]) [address], [address] [place] [address] Glucose [Mass/Vol] 210 mg/dL High 65-99 [facility] Comment on above: Performed By: #### C FLIP BMP, PINR #### [facility] ([id number]) [address], [address] [place] [address] Potassium [Moles/Vol] 5.9 mmol/L High 3.5-5.0 [facility] Comment on above: Performed By: #### C FLIP BMP, PINR #### [facility] ([id number]) [address], [address] [place] [address] Sodium [Moles/Vol] 131 mmol/L Low 134-146 [facility] Comment on above: Performed By: #### C BCA, BMP, PINR #### [facility] ([id number]) [address] [address] [place] [address] Urea nitrogen [Mass/Vol] 55 mg/dL High 5-27 [facility] Comment on above: Performed By: #### C BCA, BMP, PINR #### [facility] ([id number]) [address], [address] [place] [address] CBC AND AUTO DIFFon 10-01-20 24 ABSOLUTE BASOPHIL 0.1 X10E9/L Normal 0.0-0.2 [facility] Comment on above: Performed By: #### C TORI CASTELAN, PINR #### [facility] ([id number]) [address], [address] [place] [address] ABSOLUTE NEUTROPHIL 10.1 X10E9/L High 1.5-6.6 [facility] Comment on above: Performed By: #### C TORI CASTELAN, PINR #### [facility] ([id number]) [address], [facility] [address] [place] [address] Basophils/100 WBC (Bld) 0.4 % Normal [facility] Comment on above: Performed By: #### C TORI CASTELAN, PINR #### [facility] ([id number]) [address], [address] [place] [address] Eosinophils (Bld) [#/Vol] 0.1 10*3/uL Normal 0.0-0.4 [facility] Comment on above: Performed By: #### C TORI CASTELAN, PINR #### [facility] ([id number]) [address], [address] [place] [address] Eosinophils/100 WBC (Bld) 0.5 % Normal [facility] Comment on above: Performed By: #### C TORI CASTELAN, PINR #### [facility] ([id number]) [address], [address] [place] [address] Erythrocyte distribution width (RBC) [Ratio] 14.1 % Normal 11.5-15.0 [facility] Comment on above: Performed By: #### C TORI CASTELAN, PINR #### [facility] ([id number]) [address] [address] [place] [address] Hematocrit (Bld) [Volume fraction] 42.0 % Normal 39-49 [facility] Comment on above: Performed By: #### C TORI CASTELAN, PINR #### [facility] ([id number]) [address], [address] [place] [address] Hemoglobin (Bld) [Mass/Vol] 14.3 g/dL Normal 13.0-17.0 [facility] Comment on above: Performed By: #### C BCA, BMP, PINR #### [facility] ([id number]) [address], [facility] [address] [place] [address] Lymphocytes (Bld) [#/Vol] 1.8 10*3/uL Normal 1.0-3.5 [facility] Comment on above: Performed By: #### C BCA, BMP, PINR #### [facility] ([id number]) [address] [address] [place] [address] Lymphocytes/100 WBC (Bld) 14.1 % Normal [facility] Comment on above: Performed By: #### C BCA, BMP, PINR #### [facility] ([id number]) [address] [address] [place] [address] MCH (RBC) [Entitic mass] 31.7 pg Normal 27-34 [facility] Comment on above: Performed By: #### C BCA, BMP, PINR #### [facility] ([id number]) [address] [address] [place] [address] MCHC (RBC) [Mass/Vol] 34.0 g/dL Normal 32-36 [facility] Comment on above: Performed By: #### C BCA, BMP, PINR #### [facility] ([id number]) [address] [address] [place] [address] MCV (RBC) [Entitic vol] 93 fL Normal 80-100 [facility] Comment on above: Performed By: #### C BCA, BMP, PINR #### [facility] ([id number]) [address], [address] [place] [address] Monocytes (Bld) [#/Vol] 0.5 10*3/uL Normal 0-0.9 [facility] Comment on above: Performed By: #### C TORI CASTELAN, PINR #### [facility] ([id number]) [address], [facility] [address] [place] [address] Monocytes/100 WBC (Bld) 4.1 % Normal [facility] Comment on above: Performed By: #### C FLIP, TORI, PINR #### [facility] ([id number]) [address], [facility] [address] [place] [address] Neutrophils/100 WBC (Bld) 80.9 % Normal [facility] Comment on above: Performed By: #### C TORI CASTELAN, PINR #### [facility] ([id number]) [address], [address] [place] [address] Platelet mean volume (Bld) [Entitic vol] 7.4 fL Normal 7-12 [facility] Comment on above: Performed By: #### C TORI CASTELAN, PINR #### [facility] ([id number]) [address], [facility] [address] [place] [address] Platelets (Bld) [#/Vol] 171 10*3/uL Normal 150-450 [facility] Comment on above: Performed By: #### C FLIP, TORI, PINR #### [facility] ([id number]) [address], [facility] [address] [place] [address] RBC COUNT 4.51 X10E12/L Normal 4.10-5.70 [facility] Comment on above: Performed By: #### C FLIP, TORI, PINR #### [facility] ([id number]) [address], [address] [place] [address] WBC (Bld) [#/Vol] 12.5 10*3/uL High 4.0-11.0 [facility] Comment on above: Performed By: #### C BCA, BMP, PINR #### [facility] ([id number]) [address], [address] [place] [address] CBC W Auto Differential pane l (Bld)on 03-18-2024 ABSOLUTE BASOPHIL 0.1 [facility] Comment on above: PERFORMED AT [facility] [address],[place] [address] Basophils/100 WBC (Bld) 0.4 % [facility] Eosinophils (Bld) [#/Vol] 0.1 10*3/uL [facility] Eosinophils/100 WBC (Bld) 0.5 % [facility] Erythrocyte distribution width (RBC) [Ratio] 14.1 % 11.5 - 15.0 % [facility] Hematocrit (Bld) [Volume fraction] 42.0 % 39 - 49 % [facility] Hemoglobin (Bld) [Mass/Vol] 14.3 g/dL 13.0 - 17.0 g/dL [facility] Interpretation and review of laboratory results Abnormal [facility] Lymphocytes (Bld) [#/Vol] 1.8 10*3/uL [facility] Lymphocytes/100 WBC (Bld) 14.1 % [facility] MCH (RBC) [Entitic mass] 31.7 pg 27 - 34 pg [facility] MCHC (RBC) [Mass/Vol] 34.0 g/dL 32 - 36 g/dL [facility] MCV (RBC) [Entitic vol] 93 fL 80 [...] nucl RBC Auto (Bld) [#/Vol] 12.5 High [facility] PROTIME AND INRon 03-18-2024 INR Coag (PPP) [Relative time] 1.0 {INR} Normal 0.8-1.1 [facility] Comment on above: Performed By: #### C BCA, BMP, PINR #### [facility] ([id number]) [address], [address] [place] [address] PT Coag (PPP) [Time] 11.7 s Normal 9.8-13.2 [facility] Comment on above: Performed By: #### C BCA, BMP, PINR #### [facility] ([id number]) [address], [address] [place] [address] Ambulatory Visit Summaryon 0 02-04-2024 Ambulatory Visit [...] Cap) fluticasone nasal (fluticasone 0.05 mg/inh Nasal [place]) insulin lispro (Insulin Lispro KwikPen 100 units/mL [...] Where: [facility] [address], [place] [phone] Medications What How Much When Instructions Unchanged aspirin (aspirin 81 mg Oral EC Tab) By Mouth Every day Contact prescribing physician if questions or concerns Unchanged celecoxib By Mouth Contact prescribing physician if questions or concerns Unchanged fluoxetine (FLUoxetine 20 mg Cap) 1 Capsules By Mouth Contact prescribing physician if questions or concerns Unchanged fluticasone nasal (fluticasone 0.05 mg/ inh Nasal [place]) Nasal Inhalation Every day Contact prescribing physician [...] with pro (more content not included)... Normal [facility] Urology Office/Clinic Noteon 02-04-2024 Urology [...] x2 and one suspicious. TRUS/bx 09/23/19 - [place] 6 (3+3) x3, 26% involved with DOLORES and HGPIN x1. Genetic testing 10/07/19 - [...] Owens, URL [facility] [address] [place] [phone] Additional Instructions: 1 yr w/ PSA Patient Education Prostate Cancer Screening IJohana, personally scribed for Dr. Petersen on 02/04/2024 12:50:31. . Documentation recorded by the scribeJohana, accurately [...] 1 cap(s), Oral fluticasone 0.05 mg/inh Nasal [place], Nasal, Daily Ilumya 100 mg/mL subcutaneous solution, [...] Recorded SARS-CoV- (more content not included)... Normal [facility] Comment on above: Result Comment: Elec tronically Signed By: Peterson PETERSEN MD\.br\Date and Time Signed: 02/04/24 12:52 EDT\.br\Electronically Co-Signed By: Johana Reeves.br\Date and Time Co-Signed: 02/04/24 12:50 EDT [place] gastric emptying studyon 08-22-2023 NM gastric emptying study [facility] [address] Nuclear Medicine Report Signed Patient: Milad Seymour MR#: [id number] : 1955 Acct:[id number] Age/Sex: 67 / M ADM Date: 08/22/23 Loc: [place] Room: Type: [facility] Attending Dr: Kike Bernal MD Copies to: [...] Grimes Jr., D.O.08/22/2023 12:21 PM Dictation Location: [place] [address] Transcribed By: [facility] 08/22/23 1221 Dictated By: Shaheen Grimes Jr, DO 08/22/23 1215 Signed By: 08/22/23 1221 Normal [facility] Glucose Poct Glucometerson 0 08-20-2023 Glucose [Mass/Vol] 182 mg/dL Normal [facility] Comment on above: Result Comment: [facility] Glucose Reference Range is dependent on time and content of last meal. Glucose of more than 200 mg/dL in a nonstressed, ambulatory subject supports the diagnosis of Diabetes Mellitus. PERFORMED BY: [place] [address] [place] [address] PATHOLOGIST OUTSIDE EVENT SALES SPECIALIST JEANNINE VAZQUEZ M.D. Performed By: #### G LUCI #### Point of Care testing , Glucose [Mass/Vol] 227 mg/dL Normal [facility] Comment on above: Result Comment: [facility] Glucose Reference Range is dependent on time and content of last meal. Glucose of more than 200 mg/dL in a nonstressed, ambulatory subject supports the diagnosis of Diabetes Mellitus. PERFORMED BY: [place] [address] PATHOLOGIST OUTSIDE EVENT SALES SPECIALIST JEANNINE VAZQUEZ M.D. Performed By: #### G LULS #### Point of Care testing , XR pre/post mri xrayon 08-19 XR pre/post mri xray [facility] [place] [address] [place] [address] MRI Report Signed Patient: Milad Seymour MR#: [id number] : 1955 Acct:[id number] Age/Sex: 67 / M ADM Date: 08/20/23 Loc: [place] Room: Type: [facility] Attending Dr: Dank Campo MD Copies to: Dank Campo MD Ordering Provider: Dank Campo MD Date of Service: 08/20/23 MR/MR lumbar spine wo con: [id number] ([id number]) XR/XR pre/post mri xray: PRE LUMBAR MRI [...] Tom Chanel M.D.08/20/2023 1:02 PM Dictation Location: [place] [address] Transcribed By: [facility] 08/20/23 1302 Dictated By: Tom Chanel DO 08/20/23 1250 Signed By: 08/20/23 1302 Normal [facility] HbA1c (Bld) [Mass fraction]o n 07-30-2023 Interpretation and review of laboratory results Abnormal [facility] Laboratory - Hematology and Cell countson 07-30-2023 HbA1c (Bld) [Mass fraction] 8.9 % [facility] CT shoulder LT w conon 07-24 CT shoulder LT w con [facility] [address] CT Scan Report Signed Patient: Milad Seymour MR#: [id number] : 1955 Acct:[id number] Age/Sex: 67 / M ADM Date: 07/24/23 Loc: XD Room: Type: [facility] Attending Dr: Fredy Boswell SUPERVISOR PASTE MIXING-C Copies to: Fredy Boswell HEALTH AND SAFETY REPRESENTATIVE Ordering Provider: Fredy Boswell CNP Date of Service: 07/24/23 CT/CT shoulder [...] M.D.07/24/2023 1:48 PM Dictation Location: [place] [address] Transcribed By: WOODY 07/24/23 1348 Dictated By: Kamran Chavira II, MD 07/24/23 1336 Signed By: 07/24/23 1348 Normal [facility] [place] guided needle placementon 07-24-2023 [place] guided needle placement [facility] [place] [address] [place] [address] Fluoroscopy Report Signed Patient: Milad Seymour MR#: [id number] : 1955 Acct:[id number] Age/Sex: 67 / M ADM Date: 07/24/23 Loc: X Room: Type: [facility] Attending Dr: Fredy Boswell SUPERVISOR PASTE MIXING-C Copies to: Fredy Boswell HEALTH AND SAFETY REPRESENTATIVE Ordering Provider: Fredy Boswell CNP Date of Service: 07/24/23 FL/FL guided [...] M.D.07/24/2023 12:39 PM Dictation Location: [place] [address] Transcribed By: WOODY 07/24/23 1239 Dictated By: Kamran Chavira II, MD 07/24/23 1231 Signed By: 07/24/23 1239 Normal [facility] Capillary blood glucose deb urement by glucometer (mass/volume)Ordered By: Kike Bernal on 04-27-2023 Glucose [Mass/Vol] 189 mg/dL Normal [facility] Comment on above: Random Glucose Refer ence Range is dependent on time and content of last meal. Glucose of more than 200 mg/dL in a nonstressed, ambulatory subject supports the diagnosis of Diabetes Mellitus. Result Comment: [facility] Glucose Reference Range is dependent on time and content of last meal. Glucose of more than 200 mg/dL in a nonstressed, ambulatory subject supports the diagnosis of Diabetes Mellitus. Performed By: #### G LUCI #### Point of Care testing , Glucose Poct Glucometerson 1 06-27-2022 Commemt1 Glu2: Cleaned Meter Normal [facility] Comment on above: Result Comment: PERF ORMED BY: [facility] [address] [place] [address] PATHOLOGIST OUTSIDE EVENT SALES SPECIALIST JEANNINE VAZQUEZ M.D. Performed By: #### G LURENEE #### Point of Care testing , William 04-27-2023 L ------ Specimen: [id number] Received: 04/27/23 Status: MASSIEL Junior Num: [id number] Spec Type: Surgical Subm Dr: Kike Bernal MD Tissues: A Colon Biopsy (RANDOM COLON) Procedures: HE/2, Gross/Micro L4 Age/ Patient Sex Location Account Attending Physician Milad Seymour/Sonia [id number] Kike Bernal MD SPEC NUM: [id number] RECD: 04/27/23 STATUS: COMFORTDamaris HOLLOWAY NUM: [id number] KURT: 04/27/23- SUBM DR: Kike Bernal MD ENTERED: 04/27/[address]: VERA TYPE: Surgical DEPT: S ORDERED: [...] microscopic examination confirms the diagnosis. CPT Codes 88098 Specimen: [id number] Received: 04/27/23 Status: MASSIEL [place] Num: [id number] Spec Type: Surgical Subm Dr: Kike Bernal MD Tissues: A Colon Biopsy (RANDOM COLON) Procedures: URIEL Gross/Micro L4 Patient: Milad Seymour [id number] (Continued) Signed (signature on file) Kaushal Magana MD 04/30/23 1325 Normal [facility] No Panel InformationOrdered By: Kike Bernal on 04-27-2023 Bedside Glucose Comment Glu2: cleaned meter [facility] Patient Educationon 02-13-20 Patient Education Oncology [...] under a microscope. This is called the [place] score and the total score can range from 6?10, indicating how likely it is that the cancer will spread (metastasize) to other parts of the body. The higher the score, the greater the likelihood that the cancer will spread. ? Rosalina 6 or lower: This indicates that the cancer cells look similar to normal prostate cells (well differentiated). ? [place] 7: This indicates that the cancer cells look somewhat similar to normal prostate cells (moderately differentiated). ? [place] 8, 9, or 10: This indicates that [...] external be (more content not included)... Normal [facility] Reminderson 02-12-2023 Reminders - From: Johana Reeves To: NOREEN Petersen; Sent: 02/12/2023 17:56:32 EDT Show up: 01/13/2024 17:56:00 EDT Subject: PSA prior to appt Reminder Message Please Remember to:_have pt get PSA done prior to appt in 1 year. Normal [facility] Urology Office/Clinic Noteon 02-12-2023 Urology [...] shows G6 (3+3) x3, 26% involved with DOLORES and HGPIN x1. [1] Genetic testing 10/07/19 [...] [facility] [address], [place] [phone] Additional Instructions: 1 yr w/ PSA Patient [...] TID celecoxib, Oral fluticasone 0.05 mg/inh Nasal [place], Nasal, Daily Insulin Lispro KwikPen 100 units/mL [...] used for this result was chemiluminescence using [employer] PSA reagent. PSA Total 0.5 ng/mL 11/28/2022 11:31 EDT The concentration of P (more content not included)... Normal [facility] Comment on above: Result Comment: [...] celecoxib fluticasone nasal (fluticasone 0.05 mg/inh Nasal [place]) lansoprazole lisinopril metformin metoprolol (metoprolol 25 mg ER Tab) simvastatin Procedures Performed Laparoscopic cholecystectomy (03/2021), Radiation (01/16/2020), Transrectal biopsy of prostate using ultrasound (US) guidance (09/23/2019), Transrectal biopsy of prostate using ultrasound (US) guidance (09/03/2018), Appendectomy, Colonoscopy, Tonsillectomy. What to do next Scheduled Follow-Up Appointments Sunday 9:15 AM EDT With: Peterson PETERSEN MD Where: [facility] CHEMISTRYOrdered By: SYSTEM SYSTEM on 02-06-2023 Prostate specific Ag [Mass/Vol] 0.4 ng/mL Normal 0.1 - 3.5 ng/mL [facility] Remisol PSA Totalon 02-06-2023 Prostate specific Ag [Mass/Vol] 0.4 ng/mL Normal 0.1-3.5 [facility] Comment on above: Result Comment: The concentration of PSA determined by different manufacturers can vary due to differences in assay methods and reagent specificity. Values obtained from different assay methods cannot be used interchangeably. The methodology used for this result was chemiluminescence using [employer] PSA reagent. Performed By: #### [id number] #### [facility] [address] [place] [address] PANCREATIC ELASTASE FECALon 09-24-2022 Pancreatic Elastase, Fecal 467 ug Elast./g Normal >200 [facility] Comment on above: Result Comment: Nicolle re Pancreatic Insufficiency: <100 Moderate Pancreatic Insufficiency: 100 - 200 Normal: >200 Performed By: #### C PEPT #### [facility] [address] [place] [address] Dr. Stewart De La Cruz POTASSIUM, FECALon 3 Potassium, Stool 57 mmol/L Normal [facility] Comment on above: Result Comment: INTE RPRETIVE INFORMATION: Fecal Potassium A reference interval has not been established for fecal specimens. This test was developed and its performance characteristics determined by [facility]. It has not been cleared or approved by the US Food and Drug Administration. This test was performed in a CLIA certified laboratory and is intended for clinical purposes. Performed By: #### C PEPT #### [facility] [address] [place] [address] Dr. Stewart De La Cruz SODIUM, FECALon 09-17-2022 Sodium, Stool 65 mmol/L Normal [facility] Comment on above: Result Comment: INTE RPRETIVE INFORMATION: Fecal Sodium A reference interval has not been established for fecal specimens. This test was developed and its performance characteristics determined by [facility]. It has not been cleared or approved by the US Food and Drug Administration. This test was performed in a CLIA certified laboratory and is intended for clinical purposes. Performed By: #### F ECALN #### [facility] [address] [place] [address] Dr. Stewart De La Cruz CALPROTECTIN, FECALon 2022 Calprotectin, Fecal 43 ug/g Normal 0-120 [facility] Comment on above: Result Comment: Conc entration Interpretation Follow-Up <16 - 50 ug/g Normal None >50 -120 ug/g Borderline Re-evaluate in 4-6 weeks >120 ug/g Abnormal Repeat as clinically indicated Performed By: #### C PEPT #### [facility] [address] [place] [address] Dr. Stewart De La Cruz C-PEPTIDE, SERUMon C-Peptide, Serum 6.5 ng/mL Critically high 1.1-4.4 [facility] Comment on above: Result Comment: C-Pe ptide reference interval is for fasting patients. Performed By: #### C PEPT #### [facility] [address] [address] [address] Stewart De La Cruz HIV 1 AND 2 WITH REFLEXon HIV Screen 4th Generation wRfx Non-Reactive Normal Non Reactive [facility] Comment on above: Result Comment: HIV Negative HIV-1/HIV-2 antibodies and HIV-1 p24 antigen were NOT detected. There is no laboratory evidence of HIV infection. Performed By: #### C PEPT #### [facility] [address] [place] [address] Dr. Stewart De La Cruz INSULINon 09-13-2022 Insulin 13.9 uIU/mL Normal 2.6-24.9 [facility] Comment on above: Performed By: #### C PEPT #### [facility] [address] [place] [address] Dr. Stewart De La Cruz POTASSIUM, FECALon Potassium, Stool QNSMT Normal [facility] Comment on above: Result Comment: Test not performed. One specimen was submitted with requests for multiple tests. The requested testing requires a separate specimen for each test requested. contacted Keesha at your facility on 09-13-2022 Performed By: #### C PEPT #### [facility] [address] [place] [address] Dr. Stewart De La Cruz SODIUM, FECALon 09-13-2022 Sodium, Stool QNSMT Normal [facility] Comment on above: Result Comment: Test not performed. One specimen was submitted with requests for multiple tests. The requested testing requires a separate specimen for each test requested. contacted Keesha at your facility on 09-13-2022 Performed By: #### F ECALN #### [facility] [address] [place] [address] Dr. Stewart De La Cruz CBC AUTO DIFFon 09-12-2022 BASO # 0.1 103/ul Normal 0.0-0.1 [facility] Comment on above: Performed By: #### C PEPT #### [facility] [address] [place] [address] Dr. Stewart De La Cruz Basophils/100 WBC (Bld) 1.2 % Normal 0.2-2.0 [facility] Comment on above: Performed By: #### C PEPT #### [facility] [address] [place] [address] Dr. Stewart De La Cruz EO # 0.3 103/ul Normal 0.0-0.7 [facility] Comment on above: Performed By: #### C PEPT #### [facility] [address] [place] [address] Dr. Stewart De La Cruz Eosinophils/100 WBC (Bld) 4.5 % Normal 0.9-7.0 [facility] Comment on above: Performed By: #### C PEPT #### [facility] [address] [place] [address] Dr. Stewart De La Cruz Erythrocyte distribution width (RBC) [Ratio] 12.9 % Normal 11.0-15.0 [facility] Comment on above: Performed By: #### C PEPT #### [facility] [address] [place] [address] Dr. Stewart De La Cruz Hematocrit (Bld) [Volume fraction] 44.6 % Normal 42.0-54.0 [facility] Comment on above: Performed By: #### C PEPT #### [facility] [address] [place] [address] Dr. Stewart De La Cruz Hemoglobin (Bld) [Mass/Vol] 14.9 g/dL Normal 14.0-18.0 [facility] Comment on above: Performed By: #### C PEPT #### [facility] [address] [place] [address] Dr. Stewart De La Cruz IG # 0.03 10e3/ul Normal 0.00-0.03 [facility] Comment on above: Performed By: #### C PEPT #### [facility] [address] [place] [address] Dr. Stewart De La Cruz IG % 0.5 % Normal 0.0-0.5 [facility] Comment on above: Performed By: #### C PEPT #### [facility] [address] [place] [address] Dr. Stewart De La Cruz LYMPH # 1.1 103/ul Critically low 1.2-3.8 [facility] Comment on above: Performed By: #### C PEPT #### [facility] [address] [place] [address] Dr. Stewart De La Cruz Lymphocytes/100 WBC (Bld) 18.5 % Critically low 20.5-60.0 [facility] Comment on above: Performed By: #### C PEPT #### [facility] [address] [place] [address] Dr. Stewart De La Cruz MANUAL DIFF REQ NO Normal [facility] Comment on above: Performed By: #### C PEPT #### [facility] [address] [place] [address] Dr. Stewart De La Cruz MCH (RBC) [Entitic mass] 29.2 pg Normal 25.9-34.0 [facility] Comment on above: Performed By: #### C PEPT #### [facility] [address] [place] [address] Dr. Stewart De La Cruz MCHC (RBC) [Mass/Vol] 33.4 g/dL Normal 29.9-35.2 [facility] Comment on above: Performed By: #### C PEPT #### [facility] [address] [place] [address] Dr. Stewart De La Cruz MCV (RBC) [Entitic vol] 87.5 fL Normal 80.0-94.0 [facility] Comment on above: Performed By: #### C PEPT #### [facility] [address] [place] [address] Dr. Stewart De La Cruz MONO # 0.4 103/ul Normal 0.3-0.8 [facility] Comment on above: Performed By: #### C PEPT #### [facility] [address] [place] [address] Dr. Stewart De La Cruz Monocytes/100 WBC (Bld) 6.8 % Normal 1.7-12.0 [facility] Comment on above: Performed By: #### C PEPT #### [facility] [address] [place] [address] Dr. Stewart De La Cruz NEUT # 4.2 103/ul Normal 1.4-6.5 [facility] Comment on above: Performed By: #### C PEPT #### [facility] [address] [address] [address] Stewart De La Cruz Neutrophils/100 WBC (Bld) 68.5 % Normal 43.0-75.0 [facility] Comment on above: Performed By: #### C PEPT #### [facility] [address] [address] [address] Stewart De La Cruz Platelet mean volume (Bld) [Entitic vol] 9.8 fL Normal 9.5-13.5 [facility] Comment on above: Performed By: #### C PEPT #### [facility] [address] [address] [address] Stewart De La Cruz PLT 133 103/ul Critically low 150-450 [facility] Comment on above: Performed By: #### C PEPT #### [facility] [address] [place] [address] Dr. Stewart De La Cruz RBC 5.10 106/ul Normal 4.70-6.10 [facility] Comment on above: Performed By: #### C PEPT #### [facility] [address] [place] [address] Dr. Stewart De La Cruz WBC 6.1 103/ul Normal 4.0-11.0 [facility] Comment on above: Performed By: #### C PEPT #### [facility] [address] [place] [address] Dr. Stewart De La Cruz CRPon 09-12-2022 CRP [Mass/Vol] mg/L Normal <=1.0 [facility] Comment on above: Performed By: #### C RP #### [facility] [address] [place] [address] Dr. Stewart De La Cruz GLYCOHEMOGLOBIN A1Con 2022 ADA RECOMMENDATION SEE BELOW Normal [facility] Comment on above: Result Comment: ADA RECOMMENDED LIMIT 4.0 - 6.0 ADA THERAPEUTIC TARGET < 7.0 ACTION SUGGESTED > 7.0 Performed By: #### A 1C #### [facility] [address] [place] [address] Dr. Stewart De La Cruz Glucose [Mass/Vol] 278 mg/dL Normal [facility] Comment on above: Performed By: #### A 1C #### [facility] [address] [address] [address] Stewart De La Cruz HbA1c (Bld) [Mass fraction] 11.3 % Critically high 4.5-6.2 [facility] Comment on above: Performed By: #### A 1C #### [facility] [address] [place] [address] Dr. Stewart De La Cruz PROF CHEM 8 (BAS METB)on Anion gap [Moles/Vol] 16.9 mmol/L Normal [facility] Comment on above: Performed By: #### C PEPT #### [facility] [address] [place] [address] Dr. Stewart De La Cruz Calcium [Mass/Vol] 9.3 mg/dL Normal 8.5-10.1 [facility] Comment on above: Performed By: #### C PEPT #### [facility] [address] [place] [address] Dr. Stewart De La Cruz Chloride [Moles/Vol] 103 mmol/L Normal 98-107 [facility] Comment on above: Performed By: #### C PEPT #### [facility] [address] [place] [address] Dr. Stewart De La Cruz CO2 [Moles/Vol] 26.0 mmol/L Normal 21.0-32.0 [facility] Comment on above: Performed By: #### C PEPT #### [facility] [address] [place] [address] Dr. Stewart De La Cruz Creatinine [Mass/Vol] 1.43 mg/dL Critically high 0.70-1.30 [facility] Comment on above: Performed By: #### C PEPT #### [facility] [address] [place] [address] Dr. Stewart De La Cruz EGFR-AF GREEK 60 mL/min/1.73m2 Normal >=60 [facility] Comment on above: Performed By: #### C PEPT #### [facility] [address] [place] [address] Dr. Stewart De La Cruz EGFR-NON AF GREEK 49 mL/min/1.73m2 Critically low >=60 [facility] Comment on above: Performed By: #### C PEPT #### [facility] [address] [address] [address] Stewart De aL Cruz Glucose [Mass/Vol] 293 mg/dL Critically high 74-106 [facility] Comment on above: Performed By: #### C PEPT #### [facility] [address] [address] [address] Stewart De La Cruz Potassium [Moles/Vol] 4.9 mmol/L Normal 3.5-5.1 [facility] Comment on above: Performed By: #### C PEPT #### [facility] [address] [address] [address] Stewart De La Cruz Sodium [Moles/Vol] 141 mmol/L Normal 136-145 [facility] Comment on above: Performed By: #### C PEPT #### [facility] [address] [address] [address] Stewart De La Cruz Urea nitrogen [Mass/Vol] 32.0 mg/dL Critically high 7.0-18.0 [facility] Comment on above: Performed By: #### C PEPT #### [facility] [address] [place] [address] Dr. Stewart De La Cruz Urea nitrogen/Creatinine [Mass ratio] 22.4 mg/mg Normal [facility] Comment on above: Performed By: #### C PEPT #### [facility] [address] [place] [address] Dr. Stewart De La Cruz SED RATE [facility] 2022 SED RATE 17 mm/hr Normal <=20 [facility] Comment on above: Performed By: #### S EDR #### [facility] [address] [place] [address] Dr. Stewart De La Cruz RAD EGD - documentation only do not orderon 07-25-2022 RAD EGD - documentation only do not order [employer] Other Glucose Glucometer (BldC) [M ass/Vol]Ordered By: Kike Bernal on 07-24-2022 Glucose [Mass/Vol] 275 mg/dL [facility] Comment on above: Random Glucose Refer ence Range is dependent on time and content of last meal. Glucose of more than 200 mg/dL in a nonstressed, ambulatory subject supports the diagnosis of Diabetes Mellitus. GLYCOHEMOGLOBIN A1Con 2021 ADA RECOMMENDATION SEE BELOW Normal [facility] Comment on above: Result Comment: ADA RECOMMENDED LIMIT 4.0 - 6.0 ADA THERAPEUTIC TARGET < 7.0 ACTION SUGGESTED > 7.0 Performed By: #### A 1C #### [facility] [address] [address] [address] Stewart De La Cruz Glucose [Mass/Vol] 235 mg/dL Normal [facility] Comment on above: Performed By: #### A 1C #### [facility] [address] [address] [address] Stewart De La Cruz HbA1c (Bld) [Mass fraction] 9.8 % Critically high 4.5-6.2 [facility] Comment on above: Performed By: #### A 1C #### [facility] [address] [address] [address] Stewart De La Cruz GLYCOHEMOGLOBIN A1Con 2021 ADA RECOMMENDATION SEE BELOW Normal [facility] Comment on above: Result Comment: ADA RECOMMENDED LIMIT 4.0 - 6.0 ADA THERAPEUTIC TARGET < 7.0 ACTION SUGGESTED > 7.0 Performed By: #### A 1C #### [facility] [address] [address] [address] Stewart De La Cruz Glucose [Mass/Vol] 197 mg/dL Normal [facility] Comment on above: Performed By: #### A 1C #### [facility] [address] [address] [address] Stewart De La Cruz HbA1c (Bld) [Mass fraction] 8.5 % Critically high 4.5-6.2 [facility] Comment on above: Performed By: #### A 1C #### [facility] [address] [address] [address] Stewart De La Cruz PSA, FREE AND TOTAL RATIOon 01-28-2022 % Free PSA 30.0 % Normal [facility] Comment on above: Result Comment: The [...] men. Performed By: #### P SAFREE #### [facility] [address] [place] [address] Dr. Stewart De La Cruz Prostate specific Ag [Mass/Vol] 0.1 ng/mL Normal 0.0-4.0 [facility] Comment on above: Result Comment: Nina PUCKETT methodology. . According to the [employer], Serum PSA should decrease and [...] disease. Performed By: #### P SAFREE #### [facility] [address] [place] [address] Dr. Stewart De La Cruz PSA, Free 0.03 ng/mL Normal N/A [facility] Comment on above: Result Comment: Nina jaime ECLDENISE methodology. Performed By: #### P SAFREE #### [facility] [address] [place] [address] Dr. Stewart De La Cruz GLYCOHEMOGLOBIN A1Con 2021 ADA RECOMMENDATION SEE BELOW Normal [facility] Comment on above: Result Comment: ADA RECOMMENDED LIMIT 4.0 - 6.0 ADA THERAPEUTIC TARGET < 7.0 ACTION SUGGESTED > 7.0 Performed By: #### A 1C #### [facility] [address] [place] [address] Dr. Stewart De La Cruz Glucose [Mass/Vol] 192 mg/dL Normal [facility] Comment on above: Performed By: #### A 1C #### [facility] [address] [address] [address] Stewart De La Cruz HbA1c (Bld) [Mass fraction] 8.3 % Critically high 4.5-6.2 [facility] Comment on above: Performed By: #### A 1C #### [facility] [address] [address] [address] Stewart De La Cruz CNOVon 02-01-2021 CNOV Office Visit (RADTSA ) -- MILAD SEYMOUR ([id number]) 1955 M Date Time Provider Department 02/01/21 [...] Fawad Diaz MD cc: Dank Campo MD ([facility]) [address] [place] [id number] [address] Petersen Portions of the above note extracted and edited from previous visit as well as active information included in the EMR. Referring Provider: Fawad DIAZ [[id number]] Allergies As of Date: 02/01/2021 (No Known Allergies) Date Reviewed: 02/01/2021 Reviewed by: Tila Herrera LPN - Fully Assessed Reason for Visit: Prostate Cancer [590] Primary Visit Diagnosis:Malignant neoplasm of prostate (HCC) [C61] Order(s):PSA/PROSTSPECAG DIAG [SQPSA] Order #: [id number] FUTURE Prescriptions as of 02/03/2021 - aspirin, [...] magnesium) t (more content not included)... Normal [facility] PSA, [facility] 01-25-2021 PSA, Diagnostic 0.29 ng/mL Normal 0.00-2.59 [facility] Comment on above: Result Comment: Sandra manzo PSA test methodology used is the Electrochemiluminescence Immunoassay. Performed By: #### P #### [facility] [address] [place], [place] [address] OBSOLETEon 12-22-2020 OBSOLETE Refill (RADTSA) -- MILAD SEYMOUR ([id number]) 1955 M Date Time Provider Department 12/22/20 [...] Encounter Status:Closed by TILA HERRERA on 01/04/21 [facility] Nancy 11-03-2020 CNOV Office Visit (RADTSA ) -- MILAD SEYMOUR ([id number]) 1955 M Date Time Provider Department 11/03/20 4:00 PM LAB/PORT RADT ADAM COCHRAN During your visit today, we recorded the following information about you: Referring Provider: Fawad DIAZ [[id number]] Allergies As of Date: 11/03/2020 (No Known [...] Status:Closed by TILA HERRERA on 11/03/20 Normal [facility] CNOV Office Visit (RADTSA ) -- MILAD SEYMOUR ([id number]) 1955 M Date Time Provider Department 11/03/20 [...] DIAGNOSIS: Prostate adenocarcinoma, initial PSA 14.65, biopsy Peru score 3 + 3 = 6 (grade [...] ASSESSMENT/PLAN:DIAGNOSIS: Prostate adenocarcinoma, initial PSA 14.65, biopsy [place] score 3 + 3 = 6 (grade [...] cc: Dank Campo MD (Dr) [address] [place] [address] Dr. Petersen Referring Provider: Fawad DIAZ [[id number]] Allergies As of Date: 11/03/2020 (No Known Allergies) Date Reviewed: 11/03/2020 Reviewed by: Fawad Diaz MD - Fully Assessed Reason for Visit: Prostate Cancer [590] Primary Visit Diagnosis:Malignant neoplasm of prostate (HCC) [C61] Order(s):PSA/PROSTSPECAG DIAG [SQPSA] Order #: [id number] FUTURE Prescriptions as of 11/03/2020 Sig: TAMSULOSIN [...] 30 mg (more content not included)... Normal [facility] PSA, [facility] 11-01-2020 PSA, Diagnostic 0.27 ng/mL Normal 0.00-2.59 [facility] Comment on above: Result Comment: Sandra manzo PSA test methodology used is the Electrochemiluminescence Immunoassay. Performed By: #### P SA #### [facility] [address] [address] [facility] Telephone (RADTSA) -- MILAD SEYMOUR ([id number]) 1955 M Date Time Provider Department 10/29/20 Fawad DIAZ During your visit today, we recorded the following information about you: Tlia Herrera LPN 10/29/2020 1:53 PM Barak Stinson [...] since completing radiation therapy. Call transferred to [facility] to move up appointment. Dr. Diaz, 07/27/20 [...] (HCC) [C61] Order(s):PSA/PROSTSPECAG DIAG [SQPSA] Order #: [id number] FUTURE Prescriptions as of 10/29/2020 Sig: TAMSULOSIN [...] Encounter Status:Closed by TILA HERRERA on 10/29/20 [facility] Giuseppe 10-08-2020 [facility] Telephone (HEMASA) -- MILAD SEYMOUR ([id number]) 1955 M Date Time Provider Department 10/08/20 HEATHER BARRIGA During your visit today, we recorded the following information about you: Allergies As of Date: 10/08/2020 (No Known Allergies) Date Reviewed: 07/14/2020 Reviewed by: Joann Richardson - Fully Assessed Reason for Visit: Lab Orders [[id number]] Primary Visit Diagnosis:Iron deficiency anemia due to chronic blood loss [D50.0] Order(s):CBC + DIFF (FOR REMOTE [facility] USE) [SQRCBCDF] Order #: [id number] FUTURE COMP METABOLIC PANEL [SQCMP] Order #: [id number] FUTURE Prescriptions as of 10/08/2020 Sig: TAMSULOSIN [...] Status:Closed by TASHA GOOD on 10/14/20 Normal [facility] OBSOLETEon 09-20-2020 OBSOLETE Refill (RADTSA) -- MILAD SEYMOUR ([id number]) 1955 M Date Time Provider Department 09/20/20 [...] Status:Closed by TILA HERRERA on 10/14/20 Normal [facility] Vital Signs Date Time Vital Sign Value Performing Clinician Facility 05-29-2024 14:51-0500 Body height 177.8 cm Dexter Krishnamurthy DPM Work Phone: [facility] 05-29-2024 14:51-0500 Body mass index (BMI) [Ratio] 36.88 kg/m2 Dexter Krishnamurthy DPM Work Phone: [facility] 05-29-2024 14:51-0500 Body weight 116.57 kg Dexter Yessy DPM Work Phone: [facility] 05-28-2024 07:38-0500 Body height 177.8 cm Dank Campo MD Work Phone: [facility] 05-28-2024 07:38-0500 Body mass index (BMI) [Ratio] 36.88 kg/m2 Dank Campo MD Work Phone: [facility] 05-28-2024 07:38-0500 Body temperature 97.11 [degF] Dank Campo MD Work Phone: [facility] 05-28-2024 07:38-0500 Body weight 116.57 kg Dank Campo MD Work Phone: [facility] 05-28-2024 07:38-0500 Diastolic blood pressure 72 mm[Hg] Dank Campo MD Work Phone: [facility] 05-28-2024 07:38-0500 Heart rate 104 /min Dank Campo MD Work Phone: [facility] 05-28-2024 07:38-0500 Respiratory rate 18 /min Dank Campo MD Work Phone: [facility] 05-28-2024 07:38-0500 SaO2% (BldA) [Mass fraction] 97 % Dank Campo MD Work Phone: [facility] 05-28-2024 07:38-0500 Systolic blood pressure 136 mm[Hg] Dank Campo MD Work Phone: [facility] 04-29-2024 10:46-0500 Body height 177.8 cm Ashli Petznick DO Work Phone: [facility] 04-29-2024 10:46-0500 Body mass index (BMI) [Ratio] 35.61 kg/m2 Ashli Petznick DO Work Phone: [facility] 04-29-2024 10:46-0500 Body temperature 96.1 [degF] Ashli Petznick DO Work Phone: [facility] 04-29-2024 10:46-0500 Body weight 112.58 kg Ashli Petznick DO Work Phone: [facility] 04-29-2024 10:46-0500 Diastolic blood pressure 78 mm[Hg] Ashli Petznick DO Work Phone: [facility] 04-29-2024 10:46-0500 Heart rate 84 /min Ashli Petznick DO Work Phone: [facility] 04-29-2024 10:46-0500 SaO2% (BldA) [Mass fraction] 97 % Ashli Petznick DO Work Phone: [facility] 04-29-2024 10:46-0500 Systolic blood pressure 124 mm[Hg] Ashli Petznick DO Work Phone: [facility] 04-15-2024 09:08-0400 Body height 175.26 cm [facility] 04-15-2024 09:08-0400 Body mass index (BMI) [Ratio] 36.1 kg/m2 [facility] 04-15-2024 09:08-0400 Body weight 111.13 kg [facility] 04-08-2024 10:00-0400 Body height 177.8 cm Rebecca FREY Work Phone: [facility] 04-08-2024 10:00-0400 Body mass index (BMI) [Ratio] 35.73 kg/m2 Rebecca FREY Work Phone: [facility] 04-08-2024 10:00-0400 Body weight 112.95 kg Rebecca Dias PA Work Phone: [facility] 03-18-2024 08:28-0400 Body height 177.8 cm Rebecca Dias PA Work Phone: [facility] 03-18-2024 08:28-0400 Body mass index (BMI) [Ratio] 35.73 kg/m2 Rebecca Dias PA Work Phone: [facility] 03-18-2024 08:28-0400 Body weight 112.95 kg Rebecca Dias PA Work Phone: [facility] 03-17-2024 10:19-0400 Body height 175.26 cm [facility] 03-17-2024 10:19-0400 Body mass index (BMI) [Ratio] 37 kg/m2 [facility] 03-17-2024 10:19-0400 Body weight 114 kg [facility] 02-04-2024 11:45-0400 Diastolic blood pressure 74 mm[Hg] Peterson PETERSEN [facility] 02-04-2024 11:45-0400 Heart rate 66 /min Peterson PETERSEN [facility] 02-04-2024 11:45-0400 Respiratory rate 16 /min Peterson PETERSEN [facility] 02-04-2024 11:45-0400 Systolic blood pressure 116 mm[Hg] Peterson PETERSEN [facility] 08-15-2023 13:35-0500 Diastolic blood pressure 60 mm[Hg] Gregoria Ralph ALIGNER TYPEWRITER-HEALTH AND SAFETY REPRESENTATIVE Work Phone: [facility] [facility] 08-15-2023 13:35-0500 Systolic blood pressure 107 mm[Hg] Gregoria Ralph ALIGNER TYPEWRITER-HEALTH AND SAFETY REPRESENTATIVE Work Phone: [facility] [employer] [facility] 08-15-2023 13:33-0500 Body height 175.3 cm Gregoria Ralph ALIGNER TYPEWRITER-HEALTH AND SAFETY REPRESENTATIVE Work Phone: [facility] [employer] [facility] 08-15-2023 13:33-0500 Body mass index (BMI) [Ratio] 36.77 kg/m2 Gregoriamyah Ralph ALIGNER TYPEWRITER-HEALTH AND SAFETY REPRESENTATIVE Work Phone: [facility] [employer] [facility] 08-15-2023 13:33-0500 Body weight 112.95 kg Gregoriamyah Ralph ALIGNER TYPEWRITER-HEALTH AND SAFETY REPRESENTATIVE Work Phone: [facility] [employer] [facility] 08-15-2023 13:33-0500 Heart rate 81 /min Gregoria Ralph APRN-HEALTH AND SAFETY REPRESENTATIVE Work Phone: [facility] [employer] [facility] 08-15-2023 13:33-0500 SaO2% (BldA) [Mass fraction] 95 % Gregoria Ralph APRN-HEALTH AND SAFETY REPRESENTATIVE Work Phone: [facility] [employer] [facility] 07-30-2023 11:16-0500 Body height 177.8 cm Ashli Petznick DO Work Phone: [facility] 07-30-2023 11:16-0500 Body mass index (BMI) [Ratio] 36.16 kg/m2 Ashli Petznick DO Work Phone: [facility] 07-30-2023 11:16-0500 Body temperature 98.01 [degF] Ashli Petznick DO Work Phone: [facility] 07-30-2023 11:16-0500 Body weight 114.31 kg Ashli Petznick DO Work Phone: [facility] 07-30-2023 11:16-0500 Diastolic blood pressure 62 mm[Hg] Ashli Petznick DO Work Phone: [facility] 07-30-2023 11:16-0500 Heart rate 66 /min Ashli Petznick DO Work Phone: [facility] 07-30-2023 11:16-0500 SaO2% (BldA) [Mass fraction] 97 % Ashli Petznick DO Work Phone: [facility] 07-30-2023 11:16-0500 Systolic blood pressure 116 mm[Hg] Ashli Petznick DO Work Phone: [facility] 07-17-2023 09:22-0500 Diastolic blood pressure 73 mm[Hg] MD Dank Campo Work Phone: [facility] 07-17-2023 09:22-0500 Heart rate 70 /min MD Dank Campo Work Phone: [facility] 07-17-2023 09:22-0500 Respiratory rate 18 /min MD Dank Campo Work Phone: [facility] 07-17-2023 09:22-0500 SaO2% (BldA) [Mass fraction] 97 % MD Dank Campo Work Phone: [facility] 07-17-2023 09:22-0500 Systolic blood pressure 173 mm[Hg] MD Dank Campo Work Phone: [facility] 07-17-2023 09:20-0500 Body height 177.8 cm MD Dank Campo Work Phone: [facility] 07-17-2023 09:20-0500 Body weight 111.13 kg MD Dank Campo Work Phone: [facility] 04-27-2023 12:40-0500 Diastolic blood pressure 68 mm[Hg] MD Dank Campo Work Phone: [facility] 04-27-2023 12:40-0500 Heart rate 75 /min MD Dank Campo Work Phone: [facility] 04-27-2023 12:40-0500 Respiratory rate 16 /min MD Dank Campo Work Phone: [facility] 04-27-2023 12:40-0500 SaO2% (BldA) [Mass fraction] 97 % MD Dank Campo Work Phone: [facility] 04-27-2023 12:40-0500 Systolic blood pressure 110 mm[Hg] MD Dank Campo Work Phone: [facility] 04-27-2023 10:29-0500 Body height 177.8 cm MD Dank Campo Work Phone: [facility] 04-27-2023 10:29-0500 Body weight 113.39 kg MD Dank Campo Work Phone: [facility] 04-10-2023 14:00-0400 Body height 177.8 cm Imad Asaad Other [employer] [facility] [employer] Other 04-10-2023 14:00-0400 Body mass index (BMI) [Ratio] 36.3 kg/m2 Imad Asaad Other [employer] Other 04-10-2023 14:00-0400 Body weight 114.76 kg Imad Asaad Other [employer] Other 04-10-2023 14:00-0400 Diastolic blood pressure 68 mm[Hg] Imad Asaad Other [employer] Other 04-10-2023 14:00-0400 Systolic blood pressure 113 mm[Hg] Imad Asaad Other [employer] Other 02-12-2023 09:46-0400 Blood Pressure Location Peterson PETERSEN [facility] 02-12-2023 09:46-0400 Diastolic blood pressure 90 mm[Hg] Peterson PETERSEN [facility] 02-12-2023 09:46-0400 Heart rate 68 /min Peterson PETERSEN [facility] 02-12-2023 09:46-0400 Respiratory rate 16 /min Peterson PETERSEN [facility] 02-12-2023 09:46-0400 Systolic blood pressure 138 mm[Hg] Peterson PETERSEN [facility] 07-24-2022 13:52-0500 Diastolic blood pressure 78 mm[Hg] MD Dank Campo Work Phone: [facility] 07-24-2022 13:52-0500 Heart rate 71 /min MD Dank Campo Work Phone: [facility] 07-24-2022 13:52-0500 Respiratory rate 16 /min MD Dank Campo Work Phone: [facility] 07-24-2022 13:52-0500 SaO2% (BldA) [Mass fraction] 96 % MD Dank Campo Work Phone: [facility] 07-24-2022 13:52-0500 Systolic blood pressure 136 mm[Hg] MD Dank Campo Work Phone: [facility] 07-24-2022 12:29-0500 Body height 177.8 cm MD Dank Campo Work Phone: [facility] 07-24-2022 12:29-0500 Body temperature 98 [degF] MD Dank Campo Work Phone: [facility] 07-24-2022 12:29-0500 Body weight 115.66 kg MD Dank Campo Work Phone: [facility] 07-20-2022 10:00-0500 Body height 177.8 cm Imad Asaad Other [employer] Other 07-20-2022 10:00-0500 Body mass index (BMI) [Ratio] 36.73 kg/m2 Imad Asaad Other [employer] Other 07-20-2022 10:00-0500 Body weight 116.12 kg Imad Asaad Other [employer] Other 07-20-2022 10:00-0500 Diastolic blood pressure 96 mm[Hg] Imad Asaad Other [employer] Other 07-20-2022 10:00-0500 Systolic blood pressure 170 mm[Hg] Imad Asaad Other [employer] Other 02-03-2022 08:29-0400 Blood Pressure Location Peterson PETERSEN [facility] 02-03-2022 08:29-0400 Diastolic blood pressure 88 mm[Hg] Peterson PETERSEN [facility] [place] 02-03-2022 08:29-0400 Heart rate 75 /min [facility] 02-03-2022 08:29-0400 Respiratory rate 16 /min Peterson PETERSEN [facility] 02-03-2022 08:29-0400 Systolic blood pressure 138 mm[Hg] [facility] En[facility] Encounter Date Encounter Type Care Provider Facility Start: 02-09-2025 ambulatory Peterson Wells ty:[facility] Start: 07-21-2024 End: 07-21-2024 Bamboo flowsheet Kaden Hickman TITLE CAMERA OPERATOR [facility] Start: 07-21-2024 End: 07-21-2024 Bamboo flowsheet Kaden Hickman TITLE CAMERA OPERATOR [facility] Start: 07-14-2024 End: 07-14-2024 ambulatory Roma Lopez MD Facility:[facility] Start: 07-07-2024 End: 07-07-2024 Bamboo flowsheet Maureen Thompson TITLE CAMERA OPERATOR [facility] Start: 07-07-2024 End: 07-07-2024 Bamboo flowsheet Maureen Thompson TITLE CAMERA OPERATOR [facility] Start: 07-07-2024 End: 07-07-2024 ambulatory Maureen Thompson TITLE CAMERA OPERATOR [facility] Comment on above: Left shoulder pain, unspecified chronicity (Primary Dx); S/P arthroscopy of left shoulder Start: 07-01-2024 End: 07-01-2024 Bamboo flowsheet Alma Berkowitz PT [facility] Start: 07-01-2024 End: 07-01-2024 Bamboo flowsheet Alma Berkowitz PT [facility] Start: 07-01-2024 End: 07-01-2024 ambulatory Alma Berkowitz PT [facility] Comment on above: Left shoulder pain, unspecified chronicity (Primary Dx); S/P arthroscopy of left shoulder Start: 06-26-2024 End: 06-26-2024 Bamboo flowsheet Kaden Hickman TITLE CAMERA OPERATOR [facility] Start: 06-26-2024 End: 06-26-2024 Bamboo flowsheet Kaden Hickman TITLE CAMERA OPERATOR [facility] Start: 06-26-2024 End: 06-26-2024 ambulatory Kaden Hickman TITLE CAMERA OPERATOR [facility] Comment on above: Left shoulder pain, unspecified chronicity (Primary Dx); S/P arthroscopy of left shoulder Start: 06-25-2024 End: 06-25-2024 ambulatory REBECCA DIAS Not Available Start: 06-25-2024 End: 06-25-2024 Postop follow up visit related to original px Rebecca Dias PA Work Phone: [facility] Comment on above: S/P arthroscopy of l eft shoulder (Primary Dx) Start: 06-24-2024 End: 06-24-2024 ambulatory Alma Berkowitz PT [facility] Comment on above: Left shoulder pain, unspecified chronicity (Primary Dx); S/P arthroscopy of left shoulder Start: 06-20-2024 End: 06-20-2024 ambulatory Justina Carrillo PT Work Phone: [facility] Comment on above: Left shoulder pain, unspecified chronicity (Primary Dx); S/P arthroscopy of left shoulder Start: 06-16-2024 End: 06-16-2024 ambulatory Alma Berkowitz PT [facility] Comment on above: Left shoulder pain, unspecified chronicity (Primary Dx); S/P arthroscopy of left shoulder Start: 06-12-2024 End: 06-12-2024 ambulatory Alma Berkowitz PT [facility] Comment on above: Left shoulder pain, unspecified chronicity (Primary Dx); S/P arthroscopy of left shoulder Start: 06-07-2024 End: 06-07-2024 Telephone encounter Rebecca Dias PA Work Phone: [facility] Start: 06-05-2024 End: 06-05-2024 ambulatory Nanda Petr TITLE CAMERA OPERATOR [facility] Comment on above: Left shoulder pain, unspecified chronicity (Primary Dx); S/P arthroscopy of left shoulder Start: 06-03-2024 End: 06-03-2024 Telephone encounter Dank Campo MD Work Phone: [facility] Start: 06-02-2024 End: 06-02-2024 Bamboo flowsheet Kaden Hickman TITLE CAMERA OPERATOR [facility] Start: 06-02-2024 End: 06-02-2024 Bamboo flowsheet Kaden Hickman TITLE CAMERA OPERATOR [facility] Start: 06-02-2024 End: 06-02-2024 ambulatory Kaden Hickman TITLE CAMERA OPERATOR [facility] Comment on above: Left shoulder pain, unspecified chronicity (Primary Dx); S/P arthroscopy of left shoulder Start: 05-29-2024 End: 05-29-2024 Office outpatient visit 25 minutes Dexter Krishnamurthy DPM Work Phone: [facility] Comment on above: Contusion of left fo ot, initial encounter (Primary Dx); Pain in left foot; Diabetic polyneuropathy associated with type 2 diabetes mellitus (CMS/HCC); Encounter for long-term (current) use of insulin (CMS/HCC) Start: 05-29-2024 End: 05-29-2024 Bamboo flowsheet Valentine Simon PT Work Phone: [facility] Start: 05-29-2024 End: 05-29-2024 Bamboo flowsheet Valentine Simon PT Work Phone: [facility] Start: 05-29-2024 End: 05-29-2024 ambulatory Valentine Simon PT Work Phone: [facility] Comment on above: Left shoulder pain, unspecified chronicity (Primary Dx); S/P arthroscopy of left shoulder Start: 05-28-2024 End: 05-28-2024 Bamboo flowsheet Dank Campo MD Work Phone: [facility] Start: 05-28-2024 End: 05-28-2024 Bamboo flowsheet Dank Campo MD Work Phone: [facility] Start: 05-28-2024 End: 05-28-2024 Office outpatient visit 25 minutes Dank Campo MD Work Phone: [facility] Comment on above: Benign essential hyp ertension (CMS/HCC) (Primary Dx); JARAD (generalized anxiety disorder) (CMS/HCC); Lumbar spondylosis; Type 2 diabetes mellitus with diabetic polyneuropathy, with long-term current use of insulin (CMS/HCC); Type 2 diabetes mellitus with stage 3b chronic kidney disease, with long-term current use of insulin (HCC) (CMS/HCC) Start: 05-28-2024 End: 05-28-2024 ambulatory DANK CAMPO Not Available Start: 05-26-2024 End: 05-26-2024 Bamboo flowsheet Kaden Hickman TITLE CAMERA OPERATOR [facility] Start: 05-26-2024 End: 05-26-2024 Bamboo flowsheet Kaden Hickman TITLE CAMERA OPERATOR [facility] Start: 05-26-2024 End: 05-26-2024 ambulatory Kaden Hickman TITLE CAMERA OPERATOR [facility] Comment on above: S/P arthroscopy of l eft shoulder (Primary Dx); Left shoulder pain, unspecified chronicity Start: 05-19-2024 End: 05-19-2024 ambulatory Kaden Hickman TITLE CAMERA OPERATOR [facility] Comment on above: S/P arthroscopy of l eft shoulder (Primary Dx) Start: 05-13-2024 End: 05-13-2024 ambulatory ALMA BERKOWITZ Not Available Start: 05-13-2024 End: 05-13-2024 ambulatory Alma Berkowitz PT [facility] Comment on above: S/P arthroscopy of l eft shoulder (Primary Dx) Start: 05-12-2024 End: 05-12-2024 Telephone encounter Valentine Simon PT Work Phone: [facility] Comment on above: PO PT Eval (Tried to contact to schedule PO PT Eval for L shoulder scope, that was on 04/25; requested a call back dolores.); Call Back (He contacted and we scheduled PT Eval 05/13 and then continued out 2x/2's a week up to 06/05/24.) Start: 05-09-2024 End: 05-09-2024 Bamboo flowsheet Rebecca FREY Work Phone: [facility] Start: 05-09-2024 End: 05-09-2024 Bamboo flowsheet Rebecca FREY Work Phone: [facility] Start: 05-09-2024 End: 05-09-2024 Postop follow up visit related to original px Rebecca FREY Work Phone: [facility] Comment on above: S/P arthroscopy of l eft shoulder (Primary Dx) Start: 05-09-2024 End: 05-09-2024 ambulatory REBECCA DIAS Not Available Start: 04-29-2024 End: 04-29-2024 Office outpatient visit 25 minutes Ashli Ross DO Work Phone: [phone] Comment on above: Class 2 severe obesi ty due to excess calories with serious comorbidity and body mass index (BMI) of 35.0 to 35.9 in adult (CMS/HCC) (Primary Dx); Type 2 diabetes mellitus with diabetic polyneuropathy, with long-term current use of insulin (CMS/HCC); Type 2 diabetes mellitus with stage 3a chronic kidney disease, with long-term current use of insulin (HCC) ([facility]); Long-term insulin use ([facility]) Start: 04-29-2024 End: 04-29-2024 ambulatory ASHLIMARCIE ROSS Not Available Start: 04-24-2024 End: 04-24-2024 Refill Fredy Boswell SUPERVISOR PASTE MIXING Work Phone: [facility] Comment on above: Internal derangement of left shoulder (Primary Dx) Start: 04-23-2024 End: 04-23-2024 Telephone encounter Dank Campo MD Work Phone: [facility] Start: 04-21-2024 End: 04-21-2024 ambulatory Roma Lopez MD Facility:[facility] Start: 04-18-2024 End: 04-18-2024 Clinisync Result Encounter Generic External Data Provider [facility] External Department Unsolicited Start: 04-18-2024 End: 04-18-2024 Clinisync Result Encounter Generic External Data Provider [facility] External Department Unsolicited Start: 04-15-2024 End: 04-15-2024 ambulatory [facility] Work Phone: Start: 04-15-2024 End: 04-15-2024 Patient encounter procedure [facility] Gastroenterology Work Phone: Start: 04-08-2024 End: 04-08-2024 Bamboo flowsheet Rebecca FREY Work Phone: [facility] Start: 04-08-2024 End: 04-08-2024 Bamboo flowsheet Rebecca FREY Work Phone: [facility] Start: 04-08-2024 End: 04-08-2024 Patient encounter procedure Rebecca FREY Work Phone: [facility] Comment on above: Pre-op examination ( Primary Dx); Preop examination Start: 04-08-2024 End: 04-08-2024 Preprocedural examination done Rebecca FREY Work Phone: [facility] Work Phone: Start: 04-08-2024 End: 04-08-2024 ambulatory REBECCA DIAS Not Available Start: 03-24-2024 End: 03-25-2024 Refill Fredy Boswell SUPERVISOR PASTE MIXING Work Phone: [facility] Comment on above: Internal derangement of left shoulder (Primary Dx) Start: 03-18-2024 End: 03-18-2024 Bamboo flowsheet Rebecca FREY Work Phone: [facility] Start: 03-18-2024 End: 03-18-2024 Bamboo flowsheet Rebecca FREY Work Phone: [facility] Start: 03-18-2024 End: 03-18-2024 External Result Encounter Rebecca FREY Work Phone: [facility] External Department Unsolicited Start: 03-18-2024 End: 03-18-2024 Orders Only Rebecca FREY Work Phone: [facility] Comment on above: Encounter for other preprocedural examination Start: 03-18-2024 End: 03-18-2024 Patient encounter status Rebecca FREY Work Phone: [facility] Start: 03-18-2024 End: 03-18-2024 Telephone encounter Rebecca FREY Work Phone: [facility] Start: 03-18-2024 Encounter for other preprocedural examination GREGORIA RALPH [facility] Start: 03-18-2024 End: 03-18-2024 Patient encounter procedure Rebecca FREY Work Phone: [facility] Comment on above: Preop examination (P rimary Dx) Start: 03-18-2024 End: 03-18-2024 Preprocedural examination done Rebecca FREY Work Phone: [facility] Start: 03-18-2024 End: 03-18-2024 ambulatory REBECCA DIAS [facility] Start: 03-17-2024 End: 03-17-2024 Telephone encounter Ashli Ross DO Work Phone: [facility] Start: 03-17-2024 End: 03-17-2024 ambulatory [facility] Work Phone: Start: 03-17-2024 End: 03-17-2024 Patient encounter procedure [facility] Gastroenterology Work Phone: Start: 03-12-2024 End: 03-12-2024 ambulatory [facility] Start: 03-10-2024 End: 03-10-2024 ambulatory Roma Lopez MD Facility:[facility] Start: 03-03-2024 End: 03-03-2024 Office outpatient visit 25 minutes Jr. Johanne Hdez DO Work Phone: [facility] Comment on above: Internal derangement of left shoulder (Primary Dx); Acute pain of left shoulder Start: 03-03-2024 End: 03-03-2024 ambulatory JOHANNE MURILLO Not Available Start: 03-03-2024 End: 03-03-2024 Juan Jose Hdez DO Work Phone: [facility] Start: 03-03-2024 End: 03-03-2024 Juan Jose Hdez DO Work Phone: [facility] Start: 02-25-2024 End: 02-25-2024 ambulatory [facility] Start: 02-04-2024 End: 02-04-2024 Telephone encounter Dexter Krishnamurthy DPSonia Work Phone: [facility] Comment on above: Advice Only (Self Pa y Shoes) Start: 02-04-2024 End: 02-04-2024 ambulatory Peterson PETERSEN Facility:[facility] Start: 02-04-2024 End: 02-04-2024 Patient encounter procedure Peterson PETERSEN [facility] Start: 01-31-2024 End: 01-31-2024 ambulatory ASHLI ROSS Not Available Start: 01-28-2024 End: 01-28-2024 ambulatory Peterson PETERSEN Facility:[facility] Start: 01-28-2024 End: 01-28-2024 Patient encounter procedure Peterson PETERSEN [facility] Start: 12-13-2023 End: 12-15-2023 ambulatory GREGORIA Corrie [facility] Start: 12-05-2023 End: 12-05-2023 ambulatory DANK CAMPO Not Available Start: 11-22-2023 End: 11-22-2023 ambulatory DEXTER KRISHNAMURTHY Not Available Start: 11-14-2023 End: 11-14-2023 ambulatory DANK CAMPO Not Available Start: 11-05-2023 End: 11-05-2023 ambulatory Roma Lopez MD Facility:[facility] Start: 10-31-2023 End: 10-31-2023 ambulatory DEXTER A YESSY Not Available Start: 10-30-2023 End: 10-30-2023 ambulatory Dank Campo Facility:[facility] Start: 10-30-2023 End: 10-30-2023 ambulatory ASHLI ROSS Not Available Start: 10-17-2023 End: 10-17-2023 ambulatory DEXTER KRISHNAMURTHY Not Available Start: 10-15-2023 End: 10-15-2023 ambulatory Roma Lopez MD Facility:[facility] [place] Start: 10-11-2023 End: 10-11-2023 ambulatory DANK CAMPO Not Available Start: 10-09-2023 End: 10-09-2023 ambulatory JYOTI FÉLIX Not Available Start: 10-01-2023 End: 10-01-2023 ambulatory Roma Lopez MD Facility:[facility] Start: 09-27-2023 End: 09-27-2023 ambulatory DEXTER KRISHNAMURTHY Not Available Start: 09-05-2023 End: 09-05-2023 ambulatory DEXTER KRISHNAMURTHY Not Available Start: 08-29-2023 End: 08-29-2023 ambulatory DANK CAMPO Not Available Start: 08-27-2023 Telephone encounter Aliza Escalera [facility] Physicians Pulmonary/Sleep Medicine Start: 08-23-2023 End: 08-23-2023 ambulatory [facility] Start: 08-22-2023 End: 08-23-2023 ambulatory Dank Campo Facility:[facility] Start: 08-20-2023 End: 08-20-2023 ambulatory Dank Campo Facility:[facility] Start: 08-17-2023 Telephone encounter Gregoria shields ALIGNER TYPEWRITER-HEALTH AND SAFETY REPRESENTATIVE Work Phone: [facility] - Sleep Disorders Comment on above: Sleep Lab (CPAP) Start: 08-15-2023 End: 08-15-2023 Office outpatient visit 25 minutes Gregoria Ralph ALIGNER TYPEWRITER-HEALTH AND SAFETY REPRESENTATIVE Work Phone: [facility] Pulmonary/Sleep Medicine Comment on above: Personal history of tobacco use, presenting hazards to health (Primary Dx); Obstructive sleep apnea syndrome; CSA (central sleep apnea) Start: 08-15-2023 End: 08-15-2023 ambulatory [facility] Start: 08-09-2023 End: 08-09-2023 Patient encounter procedure MD Dank Campo Work Phone: [facility]-Pre-Surgical Testing Work Phone: Start: 08-09-2023 End: 08-09-2023 ambulatory MD Dank Campo Work Phone: [facility] Work Phone: Start: 08-09-2023 End: 08-09-2023 ambulatory DEXTER KRISHNAMURTHY Not Available Start: 08-02-2023 Telephone encounter Aliza [facility] [...] (BMI) of 36.0 to 36.9 in adult ([facility]) (Primary Dx); Type 2 diabetes mellitus with diabetic polyneuropathy, with long-term current use of insulin ([facility]) Start: 07-30-2023 End: 07-30-2023 ambulatory ASHLI ROSS Not Available Start: 07-24-2023 End: 07-24-2023 Patient encounter procedure MD Dank Campo Work Phone: [facility]-XRay [facility] [place] Work Phone: Start: 07-24-2023 End: 07-24-2023 ambulatory Fredy Boswell Facility:[facility] Start: 07-17-2023 End: 07-17-2023 Patient encounter procedure MD Dank Campo Work Phone: [facility] [place] Work Phone: Start: 07-17-2023 End: 07-17-2023 ambulatory MD Dank Campo Work Phone: [facility] Work Phone: Start: 06-26-2023 End: 06-26-2023 ambulatory MD Dank Campo Work Phone: [facility] Work Phone: Start: 06-26-2023 End: 06-26-2023 Patient encounter procedure MD Dank Campo Work Phone: [facility]-MRI [address] Work Phone: Start: 04-27-2023 End: 04-27-2023 Admission to same day surgery center MD Dank Campo Work Phone: [facility]-Digestive Health Work Phone: Start: 04-27-2023 End: 04-27-2023 ambulatory MD Dank Campo Work Phone: [facility] Work Phone: Start: 04-10-2023 End: 04-10-2023 ambulatory Imad Asaad Other [employer] Other Start: 04-10-2023 Office outpatient ne w 45 minutes Imad Asaad [facility] Start: 03-20-2023 End: 03-20-2023 ambulatory Imad Asaad Other [employer] Other Start: 03-20-2023 Telephone encounter Imad Asaad [facility] Start: 02-12-2023 End: 02-12-2023 ambulatory Peterson PETERSEN Facility:[facility] Start: 02-12-2023 End: 02-12-2023 Patient encounter procedure Peterson PETERSEN [facility] Start: 02-06-2023 End: 02-06-2023 Lab Drop off ROSALVA MURO [facility] Start: 02-06-2023 End: 02-06-2023 ambulatory ROSALVA MURO Facility:[facility] Start: 02-06-2023 End: 02-06-2023 Patient encounter procedure DEJUAN PETERSEN [facility] Start: 10-17-2022 End: 10-18-[address] DANK CAMPO Facility:[facility] Start: 09-20-2022 End: 09-20-2022 ambulatory Imad Asaad Other [employer] Other Start: 09-20-2022 Telephone encounter Imad Asaad [facility] Start: 09-14-2022 End: 09-14-[address] DANK CAMPO Facility:[facility] Start: 09-12-2022 End: 09-13-[address] DANK CAMPO Facility:H1 Start: 07-24-2022 Telephone encounter Imad Asaad [facility] Start: 07-24-2022 End: 07-24-2022 Admission to same day surgery center MD Dank Campo Work Phone: [facility] Work Phone: Start: 07-24-2022 End: 07-24-2022 ambulatory MD Dank Campo Work Phone: [facility] Work Phone: Start: 07-20-2022 End: 07-20-2022 ambulatory Imad Asaad Other [employer] Other Start: 07-20-2022 Patient encounter procedure Imad Asaad [facility] Start: 05-10-2022 End: 05-11-[address] DANK CAMPO Facility:[facility]1 Start: 04-14-2022 End: 04-15-[address] SORIN SHORE Facility:[facility]1 Start: 02-03-2022 End: 02-03-2022 Patient encounter procedure Peterson PETERSEN [facility] Start: 01-30-2022 End: 01-31-2022 ambulatory REBECCA DIAS . Facility:[facility]1 Start: 01-27-2022 End: 01-28-[address] PETERSON PETERSEN . Facility: Procedures Date Procedure Procedure Detail Performing Clinician Start: 05-29-2024 Radex foot complete minimum 3 views Dexter Krishnamurthy DPM Work Phone: Start: 04-29-2024 Hemoglobin glycosylated a1c Ashli green DO Work Phone: Start: 04-18-2024 ALL CBC WITH AUTO DIFF Generic External Data Provider Start: 03-18-2024 Complete blood count with white cell differential, automated Rebecca FREY Work Phone: Start: 02-25-2024 Follow-up visit Follow-up HANNA BUTCHER Start: 07-30-2023 Hemoglobin glycosylated a1c Ashli Scott Cassius green DO Work Phone: Start: 07-24-2023 CT [...] 04-27-2033 Screening for malignant neoplasm of colon [facility] Start: 01-20-2031 DTaP,Tdap and Td Vaccines (3 - Td or Tdap) DTaP,Tdap and Td Vaccines (3 - Td or Tdap) [facility] Start: 02-10-2030 Screening for malignant neoplasm of colon [facility] Start: 08-27-2025 Glaucoma screening Diabetes: Retinopathy Screening [facility] Start: 02-24-2025 Adult BMI Screening Adult BMI Screening [facility] Start: 02-24-2025 Tobacco Screening Tobacco Screening [facility] Start: 09-03-2024 Urine screening for protein Diabetes: Urine Protein Screening [facility] Start: 08-27-2024 End: 08-27-2024 Patient encounter procedure 08/27/2024 7:30 AM EDT Office Visit [facility] [address] [place] [phone] Dank Campo MD [address] [place] [phone] [facility] Start: 08-22-2024 End: 08-22-2024 ambulatory 08/22/2024 8:00 AM EST Treatment [facility] [address] [place] [phone] Alma Berkowitz, PT [facility] Start: 08-18-2024 End: 08-18-2024 ambulatory 08/18/2024 7:30 AM EST Treatment [facility] [address] [place] [phone] Kaden Hickman, TITLE CAMERA OPERATOR [facility] Start: 08-15-2024 Adult BMI Screening Adult BMI Screening [facility] Start: 08-15-2024 Tobacco Screening Tobacco Screening [facility] Start: 08-14-2024 End: 08-14-2024 ambulatory 08/14/2024 8:00 AM EST Treatment [facility] [address] [place] [address] Alma Berkowitz, PT [facility] Start: 08-11-2024 End: 08-11-2024 ambulatory 08/11/2024 7:30 AM EST Treatment [facility] [address] [place] [address] Kaden Hickman, TITLE CAMERA OPERATOR [facility] Start: 08-07-2024 End: 08-07-2024 ambulatory 08/07/2024 8:00 AM EST Treatment [facility] [address] [place] [address] Alma Berkowitz, PT [facility] Start: 08-04-2024 End: 08-04-2024 ambulatory 08/04/2024 7:30 AM EST Treatment [facility] [address] [place] [address] Kaden Hickman, TITLE CAMERA OPERATOR [facility] Start: 07-31-2024 End: 07-31-2024 Patient encounter procedure 07/31/2024 10:30 AM EST Office Visit [facility] [address] [facility] [address] [place] [address] Ashli Ross DO [address] [facility] [address] [place] [address] [facility] 230 Start: 07-31-2024 End: 07-31-2024 ambulatory 07/31/2024 8:00 AM EST Treatment [facility] [address] [place] [address] Kaden Hickman, TITLE CAMERA OPERATOR [facility] Start: 07-30-2024 Hemoglobin A1c measurement Diabetes: Hemoglobin A1C [facility] Start: 07-28-2024 End: 07-28-2024 ambulatory [facility] Start: 07-24-2024 End: 07-24-2024 ambulatory 07/24/2024 8:00 AM EST Treatment [facility] [address] [place] [address] Alma Berkowitz, PT [facility] Start: 07-23-2024 End: 07-23-2024 Patient encounter procedure 07/23/2024 9:15 AM EST Office Visit [facility] [address] [place] [address] Rebecca Dias, PA [address] [place] [address] [facility] Start: 07-21-2024 End: 07-21-2024 ambulatory 07/21/2024 8:00 AM EST Treatment [facility] [address] [facility] [address] [place] [address] Kaden Hickman, TITLE CAMERA OPERATOR [facility] Start: 07-16-2024 End: 07-16-2024 ambulatory 07/16/2024 8:00 AM EST Treatment [facility] [address] [facility] [address] [place] [address] Kaden Hickman, TITLE CAMERA OPERATOR [facility] Start: 07-14-2024 End: 07-14-2024 Patient encounter procedure 07/14/2024 2:00 PM EST Office Visit [facility] [address] [place] [address] Hanna Butcher MD [address] [facility] [address] [place] [address] [facility] Start: 07-01-2024 End: 07-01-2024 ambulatory 07/01/2024 9:00 AM EST Treatment [facility] [address] [facility] [address] [place] [address] Alma Berkowitz, PT [facility] Start: 06-26-2024 End: 06-26-2024 ambulatory 06/26/2024 9:00 AM EST Treatment [facility] [address] [facility] [address] [place] [address] Kaden Hickman, TITLE CAMERA OPERATOR [facility] Start: 06-25-2024 End: 06-25-2024 Patient encounter procedure 06/25/2024 8:45 AM EST Office Visit [facility] [address] [place] [phone] Rebecca Dias, PA [address] [facility] [address] [place] [address] [facility] Start: 06-24-2024 End: 06-24-2024 ambulatory 06/24/2024 9:00 AM EST Treatment [facility] [address] [facility] [address] [place] [address] Alma Berkowitz, PT [facility] Start: 06-20-2024 End: 06-20-2024 ambulatory 06/20/2024 8:00 AM EST Treatment [facility] [address] [facility] [address] [place] [address] Justina Carrillo, PT [address] [place] [address] [facility] Start: 06-16-2024 End: 06-16-2024 ambulatory 06/16/2024 10:00 AM EST Treatment [facility] [address] [facility] [address] [place] [address] Alma Berkowitz, PT [facility] Start: 06-06-2024 End: 06-06-2024 Patient encounter procedure 06/06/2024 9:00 AM EST Office Visit [facility] [address] [place] [phone] Rebecca Dias, PA [address] [facility] [address] [place] [address] [facility] Start: 06-05-2024 End: 06-05-2024 ambulatory [facility] Start: 06-02-2024 End: 06-02-2024 ambulatory 06/02/2024 12:00 PM EST Treatment [facility] [address] [facility] [place] [address] Kaden Hickman, TITLE CAMERA OPERATOR [facility] Start: 05-29-2024 End: 05-29-2024 Patient encounter procedure 05/29/2024 2:45 PM EST Office Visit [facility] [address] [place] [phone] Dexter Krishnamurthy DPM [address] [place], [place] [phone] [facility] Start: 05-29-2024 End: 05-29-2024 ambulatory [facility] Start: 05-28-2024 End: 05-28-2024 Patient encounter procedure [facility] Comment on above: Arrived Start: 05-26-2024 End: 05-26-2024 ambulatory 05/26/2024 10:00 AM EST Treatment [facility] [address] [facility] [place] [address] Kaden Hickman, TITLE CAMERA OPERATOR [facility] Start: 05-22-2024 End: 05-22-2024 ambulatory [facility] Start: 05-19-2024 End: 05-19-2024 ambulatory 05/19/2024 7:00 AM EST Treatment [facility] [address] [facility] [address] [place] [address] Kaden Hickman, TITLE CAMERA OPERATOR [facility] Start: 05-13-2024 End: 05-13-2024 ambulatory 05/13/2024 9:30 AM EST Evaluation [facility] [address] [facility] [address] [place] [address] Alma Berkowitz, PT [facility] Start: 05-09-2024 End: 05-09-2024 Patient encounter procedure [facility] Comment on above: S/P arthroscopy of left shoulder (Primar y Dx) Start: 05-02-2024 Hemoglobin A1c measurement Diabetes: Hemoglobin A1C [facility] Start: 04-29-2024 End: 04-29-2024 Patient encounter procedure [facility] 230 Comment on above: Type 2 diabetes mellitus with diabetic p olyneuropathy, with long-term current use of insulin ([facility]) Start: 04-08-2024 End: 04-08-2024 Patient encounter procedure [facility] Comment on above: Pre-op examination (Primary Dx) Start: 03-25-2024 End: 03-25-2024 Patient encounter procedure 03/25/2024 1:30 PM EDT Procedure Visit [facility] Jr. Johanne Hdez DO [address] [address] [facility] Start: 03-18-2024 End: 03-13-2025 Basic metabolic 1998 panel - Serum or Plasma Basic metabolic panel Lab Routine Preop examination Expected: 03/18/2024 (Approximate), Expires: 03/13/2025 [facility] Work Phone: Comment on above: Expected: 03/18/2024 (Approximate), Expi res: 03/13/2025 Start: 03-18-2024 End: 03-18-2025 CBC W Auto Differential panel - Blood [facility] Work Phone: Comment on above: Expected: 03/18/2024, Expires: Expected: 03/18/2024 (Approximate), Expires: 03/13/2025 Start: 03-18-2024 End: 03-13-2025 Prothrombin time (PT) in Blood by Coagulation assay Protime-INR Lab Routine Preop examination Expected: 03/18/2024 (Approximate), Expires: 03/13/2025 [facility] Comment on above: Expected: 03/18/2024 (Approximate), Expi res: 03/13/2025 Start: 03-18-2024 End: 03-18-2025 Protime & INR Protime & INR Lab Routine Encounter for other preprocedural examination Expected: 03/18/2024, Expires: 03/18/2025 [facility] Work Phone: Comment on above: Expected: 03/18/2024, Expires: Start: 03-18-2024 Subsequent hospital visit by physician 03/18/2024 9:07 AM EDT Hospital Encounter [facility] [address] [place] [phone] Arrived [facility] Comment on above: Arrived Start: 03-18-2024 End: 03-18-2024 Patient encounter procedure [facility] Comment on above: Preop examination Start: 03-03-2024 End: 03-03-2024 Patient encounter procedure 03/03/2024 2:30 PM EDT Office Visit [facility] [address] [place] [phone] Jr. Johanne Hdez, DO [address] [facility] [address] [place] [address] Arrived [facility] Comment on above: Arrived Start: 02-25-2024 End: 02-25-2024 Patient encounter procedure [facility] Start: 02-17-2024 COVID-19 Vaccine ( season) COVID-19 Vaccine ( season) [facility] Start: 02-17-2024 Influenza vaccination Influenza Vaccine (#1) [facility] Start: 11-19-2023 End: 11-19-2023 Clinical Support 11/19/2023 8:00 PM EDT Clinical Support [facility] [address] [place] [phone] [facility] Start: 10-29-2023 End: 10-29-2023 Patient encounter procedure 10/29/2023 1:15 PM EDT Office Visit [facility] [address] [place] [address] Ashli Ross, DO [address] [place] [address] [facility] 230 Start: 10-28-2023 Hemoglobin A1c measurement Diabetes: Hemoglobin A1C [facility] Start: 08-29-2023 End: 08-29-2023 Patient encounter procedure 08/29/2023 7:45 AM EDT Office Visit [facility] [address] [place] [address] Dank Campo MD [address] [place] [phone] [facility] Start: 08-23-2023 End: 08-23-2023 Patient encounter procedure [facility] Start: 08-15-2023 End: 08-15-2024 CT Chest for screening WO contrast CT low dose lung screenin (3mo 6mo follow-up) Imaging Routine Personal history of tobacco use, presenting hazards to health Expected: 08/15/2023, Expires: 08/15/2024 [employer] Work Phone: Comment on above: Expected: 08/15/2023, Expires: Start: 08-15-2023 End: 08-15-2024 Echo complete W/O contrast Echo complete W/O contrast Echocardiography Routine Obstructive sleep apnea syndrome CSA (central sleep apnea) Expected: 08/15/2023, Expires: 08/15/2024 [facility] Comment on above: Expected: 08/15/2023, Expires: Start: 08-09-2023 End: 08-09-2023 Patient encounter procedure 08/09/2023 8:30 AM EST Office Visit [facility] [address] [place] [phone] Dexter Krishnamurthy DPM [address] [place], [place] [phone] [facility] Start: 08-01-2023 End: 08-01-2023 Patient encounter procedure 08/01/2023 10:30 AM EST Office Visit [facility] [address] [place] [address] Jr. Johanne Hdez, DO [address] [facility] [address] [place] [address] [facility] Start: 04-27-2023 [facility] Start: 04-11-2023 Administration of varicella zoster vaccine Zoster (Shingles) Vaccine (3 of 3) [facility] Start: 02-16-2023 COVID-19 Vaccine ( season) COVID-19 Vaccine ( season) [facility] Start: 02-16-2023 COVID-19 Vaccine () COVID-19 Vaccine () [facility] Start: 02-16-2023 Influenza vaccination Influenza Vaccine [facility] Start: 07-24-2022 [facility] Start: 04-15-2022 Adult BMI Screening Adult BMI Screening [facility] Start: 09-15-2020 Abdominal aortic aneurysm screening Abdominal Aortic Aneurysm (AAA) Screen [facility] Start: 09-15-2020 Fall Risk Screening Fall Risk Screening [facility] Start: 09-15-1974 Urine screening for protein Diabetes: Urine Protein Screening [facility] Start: 09-15-1973 Adult BMI Follow Up Plan Adult BMI Follow Up Plan [facility] Start: 1967 Depression Screening Depression Screening [facility] Start: 1967 Tobacco Screening Tobacco Screening [facility] Start: 09-15-1965 Glaucoma screening Diabetes: Retinopathy Screening [facility] Start: 1955 Medicare Annual Wellness (AWV) Medicare Annual Wellness (AWV) [facility] Start: 1955 Medicare Annual Wellness Visit Medicare Annual Wellness Visit [facility] Start: 1955 Screening for malignant neoplasm of colon [facility] Patient Education [facility] Work Phone: End: 08-15-2024 Polysomnography 4 or more parameters with PAP titration Polysomnography 4 or more parameters with PAP titration Sleep Center Routine Obstructive sleep apnea syndrome CSA (central sleep apnea) 1 Occurrences starting 08/15/2023 until 08/15/2024 [facility] Comment on above: 1 Occurrences starting 08/15/2023 until 08/15/2024 XR Shoulder - left 2 Views XR shoulder 2+ views left Imaging Routine Acute pain of left shoulder 03/03/2024 2:47 PM EDT [facility] Work Phone: Immunizations Immunization Date Immunization Notes Care Provider Fa cili 02-28-2024 ABRYSVO - Respirator y syncytial virus (RSV), vaccine, bivalent, protein subunit RSV prefusion F, diluent reconstituted, 0.5 mL, PF Ashli Petznick DO Work Phone: [facility] 02-28-2024 influenza, high dose seasonal, preservative-free Ashli Petznick DO Work Phone: [facility] 02-28-2024 influenza virus vaccine, unspecified formulation JrJitendra Stepanic DO Work Phone: [facility] 04-22-2023 zoster vaccine recombinant Ashli Petznick DO Work Phone: [facility] 03-23-2023 RSV, recombinant, protein subunit RSVpreF, adjuvant reconstitu, 120mcg/0.5mL, PF (Arexvy) Ashli Petznick DO Work Phone: [facility] 02-14-2023 Influenza, Seasonal, Quadrivalent, Adjuvanted Ashli Petznick DO Work Phone: [facility] 02-14-2023 zoster vaccine recombinant Ashli Petznick DO Work Phone: [facility] 02-14-2023 influenza virus vaccine, unspecified formulation Aliza Escalera [facility] 02-14-2023 zoster vaccine, unspecified formulation Aliza Escalera [facility] 04-09-2022 COVID-19 mRNA Bivale nt Booster (Pfizer) MD Dank Campo Work Phone: [facility] 04-09-2022 influenza virus vaccine, unspecified formulation [employer] [facility] 04-09-2022 Influenza, Seasonal, Quadrivalent, Adjuvanted Ashli Petznick DO Work Phone: [facility] 04-13-2021 COVID-19 Alfred Hightower (Pfizer) MD Dank Campo Work Phone: [facility] 02-22-2021 influenza virus vaccine, unspecified formulation [employer] [facility] 02-22-2021 Influenza, Seasonal, Quadrivalent, Adjuvanted Ashli Petznick DO Work Phone: [facility] 02-22-2021 pneumococcal polysaccharide vaccine, 23 valent Ashli Petznick DO Work Phone: [facility] 02-16-2021 pneumococcal conjuga te vaccine, 13 valent [employer] [facility] 01-20-2021 tetanus and diphther ia toxoids, adsorbed, preservative free, for adult use (5 Lf of tetanus toxoid and 2 Lf of diphtheria toxoid) Imad Asaad Other [employer] Other 01-20-2021 tetanus and diphther ia toxoids, adsorbed, preservative free, for adult use (2 Lf of tetanus toxoid and 2 Lf of diphtheria toxoid) [employer] [facility] 01-17-2021 influenza virus vaccine, unspecified formulation [employer] [facility] 01-17-2021 influenza, seasonal, injectable Ashli Petznick DO Work Phone: [facility] 01-17-2021 Moderna SARS-CoV-2 Vaccination Ashli Petznick DO Work Phone: [facility] 10-16-2020 SARS-CoV-2 (COVID-19 ) mRNA BNT-162b2 vax Peterson PETERSEN [facility] 10-01-2020 COVID-19 mRNAAlfred (Pfizer) MD Dank Campo Work Phone: [facility] 09-08-2020 COVID-19 mRNAAlfred (Pfizer) MD Dank Campo Work Phone: [facility] 02-17-2020 influenza virus vaccine, unspecified formulation Peterson [email or web address] [facility] 02-17-2020 influenza, injectabl e, quadrivalent, preservative free Ashli Petznick DO Work Phone: [facility] 02-09-2020 influenza, high dose seasonal, preservative-free Ashli Petznick DO Work Phone: [facility] 03-15-2019 influenza virus vaccine, unspecified formulation [employer] [facility] 03-15-2019 influenza, injectabl e, quadrivalent, preservative free Ashli Petznick DO Work Phone: [facility] 02-25-2018 influenza virus vaccine, unspecified formulation [employer] [facility] 02-25-2018 influenza, injectabl e, quadrivalent, preservative free Ashli Petznick DO Work Phone: [facility] 05-30-2017 pneumococcal conjuga te vaccine, 13 valent Ashli Petznick DO Work Phone: [facility] 05-30-2017 pneumococcal polysaccharide vaccine, 23 valent Ashli Petznick DO Work Phone: [facility] 03-02-2017 influenza nasal, unspecified formulation Ashli Petznick DO Work Phone: [facility] 03-02-2017 influenza virus vaccine, unspecified formulation Aliza Escalera [facility] 03-02-2017 influenza, injectabl e, quadrivalent, preservative free Ashli Petznick DO Work Phone: [facility] 03-05-2016 influenza virus vaccine, unspecified formulation Peterson PETERSEN [facility] 03-05-2016 influenza, injectabl e, quadrivalent, preservative free Ashli Petznick DO Work Phone: [facility] 03-05-2016 influenza, seasonal, injectable Ashli Petznick DO Work Phone: [facility] 02-18-2015 zoster vaccine, live Ashli Petznick DO Work Phone: [facility] 02-01-2015 influenza virus vaccine, unspecified formulation Peterson [email or web address] [facility] 02-01-2015 influenza, seasonal, injectable Ashli Petznick DO Work Phone: [facility] 08-18-2014 tetanus toxoid, redu inocencio diphtheria toxoid, and acellular pertussis vaccine, adsorbed Ashli Petznick DO Work Phone: [facility] 08-04-2013 pneumococcal conjuga te vaccine, 13 valent Ashli Petznick DO Work Phone: [facility] Payers Date Payer Category Payer Self-pay [id number] 2023 Unknown [id number] 2021 Medicare (Managed Care) KT YUAN [id number] 2020 Medicare [id number] [id number]. [id number] 2013 Unknown [id number]. 1.13.424. [id number] 1959 Medicare [id number] 1955 Unknown [id number] 2.16.840.1.430062.3.579. 2.593 1955 Unknown [id number] 2.16.840.1.975435.3.579. 2.593 1955 Unknown [id number] 2.16.840.1.485746.3.579. 2.593 1955 Unknown [id number] 2.16.840.1.021538.3.579. 2.593 1955 Unknown [id number] 2.16.840.1.849048.3.579. 2.593 1955 Unknown [id number] 2.16.840.1.517611.3.579. 2.593 1955 Unknown [id number] 2.16.840.1.349055.3.579. 2.593 1955 Unknown [id number] 2.16.840.1.032949.3.579. 2.593 1955 Unknown [id number] 2.16.840.1.088141.3.579. 2.1286 1955 Unknown [id number] 2.16.840.1.701759.3.579. 2.727 1955 Unknown [id number] 2.16.840.1.521623.3.579. 2.727 1955 Unknown [id number] 2.16.840.1.310436.3.579. 2.727 1955 Unknown [id number] 2.16.840.1.346942.3.579. 2.727 1955 Unknown [id number] 2.16.840.1.437193.3.579. 2.727 1955 Unknown [id number] 2.16.840.1.328929.3.579. 2.727 1955 Unknown [id number] 2.16.840.1.328917.3.579. 2.1286 1955 Unknown [id number] 2.16.840.1.083696.3.579. 2.128 1955 Unknown [id number] 2.16.840.1.569403.3.579. 2.128 1955 Unknown [id number] 2.16.840.1.936270.3.579. 2.128 1955 Unknown [id number] 2.16.840.1.239971.3.579. 2.128 1955 Unknown [id number] 2.16.840.1.343959.3.579. 2.1286 1955 Unknown [id number] 2.16.840.1.490423.3.579. 2.1259 1955 Unknown [id number] 2.16.840.1.625823.3.579. 2.1259 1955 Unknown [id number] 2.16.840.1.668371.3.579. 2.1259 1955 Unknown [id number] 2.16.840.1.810331.3.579. 2.1259 1955 Unknown [id number] 2.16.840.1.305828.3.579. 2.125 1955 Unknown [id number] 2.16.840.1.747312.3.579. 2.1258 1955 Unknown [id number] 2.16.840.1.244317.3.579. 2.1258 1955 Unknown [id number] 2.16.840.1.953063.3.579. 2.1258 1955 Unknown [id number] 2.16.840.1.991956.3.579. 2.1258 1955 Unknown [id number] 2.16.840.1.345562.3.579. 2.1258 1955 Unknown [id number] 2.16.840.1.145563.3.579. 2.1258 1955 Unknown [id number] 2.16840.1.392005.3.579. 2.1258 1955 Unknown [id number] 2.16840.1.707781.3.579. 2.1258 1955 Unknown [id number] 2.16.840.1.205475.3.579. 2.1258 1955 Unknown [id number] 2.16.840.1.135428.3.579. 2.1258 1955 Unknown [id number] 2.16.840.1.671276.3.579. 2.1258 1955 Unknown [id number] 2.16.840.1.754428.3.579. 2.1258 1955 Unknown [id number] 2.16.840.1.650116.3.579. 2.1258 1955 Unknown [id number] 2.16.840.1.534718.3.579. 2.1258 1955 Unknown [id number] 2.16.840.1.092638.3.579. 2.1258 1955 Unknown [id number] 2.16.840.1.705114.3.579. 2.1259 1955 Unknown [id number] 2.16.840.1.808879.3.579. 2.1258 1955 Unknown [id number] 2.16.840.1.861350.3.579. 2.1258 1955 Unknown [id number] 2.16.840.1.189212.3.579. 2.1258 1955 Unknown [id number] 2.16.840.1.829196.3.579. 2.1258 1955 Unknown [id number] 2.16.840.1.614898.3.579. 2.1258 1955 Unknown [id number] 2.16.840.1.191296.3.579. 2.1258 1955 Unknown [id number] 2.16.840.1.312890.3.579. 2.1258 1955 Unknown [id number] 2.16.840.1.024610.3.579. 2.1258 1955 Unknown [id number] 2.16.840.1.627576.3.579. 2.1258 1955 Unknown [id number] 2.16.840.1.188032.3.579. 2.1258 1955 Unknown [id number] 2.16.840.1.636417.3.579. 2.1258 1955 Unknown [id number] 2.16.840.1.976569.3.579. 2.1258 1955 Unknown [id number] 2.16.840.1.566947.3.579. 2.1258 1955 Unknown [id number] 2.16.840.1.154323.3.579. 2.1258 1955 Unknown [id number] 2.16.840.1.173448.3.579. 2.1258 1955 Unknown [id number] 2.16.840.1.945133.3.579. 2.1259 1955 Unknown [id number] 2.16.840.1.170776.3.579. 2.1259 1955 Unknown [id number] 2.16.840.1.252038.3.579. 2.196 1955 Unknown [id number] 2.840.1.809564.3.579. 2.196 1955 Unknown [id number] 2.16840.1.334908.3.579. 2.196 1955 Unknown [id number] 2.16840.1.666436.3.579. 2.196 1955 Unknown [id number] 2.840.1.498532.3.579. 2.196 1955 Unknown [id number] .840.1.760526.3.579. 2.196 Medicare Medicare [id number] Unknown [place]/BS [id number] Unknown Regular Insurance [id number] Unknown [id number] 2.840.1.395890.3.579. 2.531 Unknown [id number] 2.840.1.349699.3.579. 2.531 Unknown [id number] 2.16840.1.447938.3.579. 2.531 Unknown [id number] 2.16840.1.825308.3.579. 2.531 Unknown [id number] 2.16840.1.529155.3.579. 2.531 Unknown [id number] 2.840.1.135658.3.579. 2.531 Unknown [id number] 2.16.840.1.186519.3.579. 2.531 Worker's Compensation [employer] [id number] Worker's Compensation [id number] Social History Date Type Detail Facility Start: 02-03-2022 End: 03-18-2024 Ex-smoker (finding) [facility] Start: 01-09-2023 End: 04-29-2024 Male [facility] Start: 1955 Sex Assigned At Male F [facility] Start: 06-18-1974 End: 2021 History of tobacco use Current smoker [facility] Start: 06-18-1974 End: 2021 History of tobacco use Cigarette Smoker [facility] Start: 12-11-2022 End: 01-09-2023 Cigarettes smoked current (pack per day) - Reported 1.5 [facility] Start: 12-11-2022 End: 03-18-2024 Tobacco use and exposure Smokeless tobacco non-user [facility] Start: 07-30-2023 End: 06-25-2024 Alcohol intake Ex-drinker (finding) [facility] Within the last year , have you been afraid of your partner or ex-partner? No [facility] Do you belong to any clubs or organizations such as sabianist groups, unions, fraternal or athletic groups, or [...] [facility] Start: 12-22-2020 Tobacco smoking stat [facility] Smokes tobacco daily [facility] Start: 04-15-2021 End: 02-25-2024 Alcohol intake Current non-drinker of alcohol (finding) [facility] Medical Equipment Procedure Code Equipment Code Equipment Origin al Text Equipment Identifier Dates EGD (esophagogastroduod enoscopy) Video capsule endoscopy system [id number] FDA Start: 08-18-2020 [id number] Start: 09-19-2022 use to test BLOO D SUGAR THREE TIMES DAILY [id number] Start: 09-19-2022 use to test BLOO D SUGAR THREE TIMES DAILY [id number] Start: 11-01-2022 Swivelock 4.75 - Sna - [id number] Start: 12-10-2017 Incv/Swivelock 4.75 Use [id number] - Sna - [id number] Start: 07-19-2020 USE DIRECTED FOUR TIMES DAILY [id number] Start: 02-21-2024 Fsbs bid [id number] Start: 12-17-2023 USE DIRECTED FOUR TIMES DAILY [id number] Start: 11-21-2023 USE DIRECTED FOUR TIMES DAILY [id number] Start: 06-05-2024 Goals Date Patient Goal Desired Activity /State Personal health goal Comment on above: Formatting of this n ote might be different from the original. Evaluation of progress towards goal: Home self care with childrens support Functional Status Date Assessment Result Facility 02-04-2024 Functional Status N/A [facility] 02-12-2023 Functional Status N/A [facility] 02-03-2022 N/A [facility] Clinical Notes 11-04-2020 to 07-01-2024 Alma Woo, PT - 07/01/2024 9:00 AM James Dias, PA - 06/25/2024 8:45 AM Destiney Berkowitz, PT - 06/24/2024 9:00 AM Ashvin Carrillo, PT - 06/20/2024 8:00 AM EST Note Date & Type Note Facility 07-01-2024 History of Presen t illness Narrative Images from the original note were not included. Physical Therapy Treatment Visit Patient Name: Darrin Seymour Today's Date: 07/01/2024 Encounter Diagnoses Name Primary? Left shoulder pain, unspecified chronicity Yes S/P arthroscopy of left shoulder Visit number: 3 (9 in 2023), $35 co-pay Timed Code Treatment Minutes: 30 minutes Total Treatment Time: 50 minutes Time In: 9:00 AM Time Out: 9:56 AM History: Pt underwent surgery for left RCR and bicep tendon on 04/25/24,. Pt has been compliant with use of sling. Now to begin PT. Pt states not taking any pain medication or OTC meds for shoulder. Sleeping on couch which was difficult but now getting better. Just had abductor pillow removed. No complaints of pain. Precautions: Sarah Ann Subjective: Pt states he was consistently icing and taking Tylenol over the weekend. Was able to reach overhead yesterday without any sharp pain in left shoulder. Pain: 06/27 left shoulder Objective: PT Evaluation (05/13/2024) SHOULDER PROM: 135 degrees flexion, 98 degrees abduction, 36 degrees ER, 55 degrees IR Strength: No strength testing due to time since surgery Observation: Incisions healing well, mild bruising present left upper arm Palpation: Mild tenderness with palpation to left anterior shoulder. Special Test: N/A Treatment: Manual Therapy: () Delivered manual ther to left UE/ shoulder PROM in all planes and gentle left GH mobs to increase ROM and mobility Therapeutic Exercise: (30 minutes) Guided pt through ther and flex ex per grid. 10 minutes unsupervised. Therapeutic Activity: Exercises to improve dynamic activities, functional tasks, functional mobility to return to prior activity level as needed. Neuromuscular re-education: Balance Training, Muscle Facilitation, Dynamic Stability, Core Stabilization, and Blood Flow Restriction Training (BFRT) as needed. Modalities: CP at end of session 10 minutes to reduce muscle soreness in sitting Assessment: visit #12 post left RCR performed on 04-25-24. PROM of left shoulder: 153 degrees flexion, 155 degrees abduction, 70 degrees ER. AROM left shoulder: 143 degrees flexion, 128 degrees abduction. UEFI score is currently 75/80. Will decrease frequency of PT to 1x week until July when pt will be appropriate for strengthening. Outcome Measure: Upper Extremity Functional Index (UEFI): 56/80 Rehab Diagnosis: left shoulder pain and weakness; limited mobility left shoulder Short Term Goal: To be met in 2 weeks Goal 1: Pt to be instructed in home exercise program. [facility] Goals: To be met in 10 weeks Goal 1: Pt to report independence and compliance with home program. Goal 2: Pt to achieve 140 degrees of left shoulder flexion to assist with overhead reaching. Goal 3: Pt to achieve 120 degrees of left shoulder abduction to assist with ADL and dressing. Goal 4: Pt to achieve 4+ to 5/5 strength left shoulder in all planes to assist with functional tasks and lifting. Goal 5: Pt to score no less than 68/80 on UEFI indicating improved QOL. Pt will benefit from skilled PT for 2x/week from 05/13/2024 to 07/22/2024 to address the above impairments. I hereby deem this POC medically necessary. Please sign below. Date: documented in this encounter [facility] 06-25-2024 History of Presen t illness Narrative Images from the original note were not included. HISTORY OF PRESENT ILLNESS: POST OP PT Milad Seymour is an 68 y.o. @ male. (EST PT) S/P (L) SHOULDER SCOPE 04/25/24 (8WKS 5DAYS) DOING MUCH BETTER - CONTINUES PT [facility] 2/WK; INCREASE ROM - HAS NOT STARTED STRENGTHENING CONTINUES PHYSICAL THERAPY (10 SESSIONS) @[facility] NOTES SOME DISCOMFORT ANTERIOR SHOULDER- PT ICES/IBUPROFEN- DENIES WAKE HS PT NOTES MULTIPLE OTHER ISSUES TODAY B/L KNEES AND RT SHOULDER REVIEW OF SYSTEMS: General: Denies fever, fatigue or weight loss Lungs: Denies SOB Cardio: Denies chest pain GI: Denies indigestion or abdominal pain Neuro: Denies numbness or tingling, denies new onset paralysis Musculoskeletal: ( see note) PHYSICAL EXAM: Left Shoulder Exam Tenderness The patient is experiencing no tenderness (compartments soft). Range of Motion Active abduction: 170 Passive abduction: 170 Extension: 60 Left shoulder external rotation: 45 AROM, PROM 70. Internal rotation 0 degrees: L4 Muscle Strength Left shoulder normal muscle strength: Fires deltoid and rotator cuff. Other Erythema: absent Scars: absent (portals well healed) Sensation: normal Pulse: present Comments: The operative upper extremity was noted to be neurovascularly unchanged. Sensation to light touch was intact to all dermatomes to operative upper extremity. Radial and ulnar pulses were present and equal bilaterally. Patient was able to motor elbow wrist and fingers in all anatomic planes with 5 out of 5 strength on the operative upper extremity. Compartments were soft to operative upper extremity. There was no evidence of infection or ascending lymphangitis to operative extremity. Procedures No orders of the defined types were placed in this encounter. ASSESSMENT: ICD-10-CM 1. S/P arthroscopy of left shoulder Z98.890 S/p rotator cuff repair. Biceps tenodesis Assessment & Plan 1. Post-operative status following left shoulder arthroscopy with rotator cuff repair. He reports a satisfactory recovery from his left shoulder arthroscopy with rotator cuff repair. He notes a small hitch or click when he abducts his arm past 90 degrees but has near full range of motion, lacking external rotation past 45 degrees. He will continue active and passive range of motion exercises but will avoid strengthening or resistance exercises as discussed. A follow-up appointment is scheduled for 4 weeks for reevaluation. 2. Right shoulder and bilateral knee pain. He is encouraged not to take Motrin given his renal insufficiency. He will stick to his Celebrex, which he has been on chronically. Take Tylenol for any breakthrough pain. He is given a letter for warm water therapy treatments, which he may exercise in a pool to see if this helps his other joint pain. Otherwise, recommend a conversation regarding additional pain management with his family doctor. Patient is diabetic and can not do oral steroids and has had increased blood sugars with pain management injections. Follow-up The patient will follow up in 4 weeks. PROCEDURE The patient underwent left shoulder arthroscopy with rotator cuff repair. Questions answered in laymen terms at the bedside. The diagnosis, home exercise plan and any ongoing restrictions/ recommendations reviewed. If unable to be reached in office, I recommend evaluation at nearest Emergency Room if any symptoms worsened or new symptoms develop for requiring urgent evaluation. documented in this encounter [facility] 06-24-2024 History of Presen t illness Narrative Images from the original note were not included. Physical Therapy Treatment Visit Patient Name: Darrin Seymour Today's Date: 06/24/2024 Encounter Diagnoses Name Primary? Left shoulder pain, unspecified chronicity Yes S/P arthroscopy of left shoulder Visit number: 1 (9 in 2023), $35 co-pay Timed Code Treatment Minutes: 33 minutes Total Treatment Time: 43 minutes Time In: 9:05 AM Time Out: 9:48 AM History: Pt underwent surgery for left RCR and bicep tendon on 04/25/24,. Pt has been compliant with use of sling. Now to begin PT. Pt states not taking any pain medication or OTC meds for shoulder. Sleeping on couch which was difficult but now getting better. Just had abductor pillow removed. No complaints of pain. Precautions: Sarah Ann Subjective: Pt states he has noticed a sharp pain occasionally when trying to raise arm overhead. Pain is short in duration. Will see again tomorrow. Pain: 06/27 left shoulder Objective: PT Evaluation (05/13/2024) SHOULDER PROM: 135 degrees flexion, 98 degrees abduction, 36 degrees ER, 55 degrees IR Strength: No strength testing due to time since surgery Observation: Incisions healing well, mild bruising present left upper arm Palpation: Mild tenderness with palpation to left anterior shoulder. Special Test: N/A Treatment: Manual Therapy: (11 minutes) Delivered manual ther to left UE/ shoulder PROM in all planes and gentle left GH mobs to increase ROM and mobility Therapeutic Exercise: (22 minutes) Guided pt through ther and flex ex per grid with some exercises held due to recent pain. Therapeutic Activity: Exercises to improve dynamic activities, functional tasks, functional mobility to return to prior activity level as needed. Neuromuscular re-education: Balance Training, Muscle Facilitation, Dynamic Stability, Core Stabilization, and Blood Flow Restriction Training (BFRT) as needed. Modalities: CP at end of session 10 minutes to reduce muscle soreness Assessment: visit #10 post left RCR performed on 04-25-24. Decreased intensity of exercises this date due to pt complaints of increase pain with active abduction. Pt able to achieve 44 degrees left shoulder ER passively. Strength left shoulder ER 3/5 within available ROM. Will continue. Outcome Measure: Upper Extremity Functional Index (UEFI): 56/80 Rehab Diagnosis: left shoulder pain and weakness; limited mobility left shoulder Short Term Goal: To be met in 2 weeks Goal 1: Pt to be instructed in home exercise program. [facility] Goals: To be met in 10 weeks Goal 1: Pt to report independence and compliance with home program. Goal 2: Pt to achieve 140 degrees of left shoulder flexion to assist with overhead reaching. Goal 3: Pt to achieve 120 degrees of left shoulder abduction to assist with ADL and dressing. Goal 4: Pt to achieve 4+ to 5/5 strength left shoulder in all planes to assist with functional tasks and lifting. Goal 5: Pt to score no less than 68/80 on UEFI indicating improved QOL. Pt will benefit from skilled PT for 2x/week from 05/13/2024 to 07/22/2024 to address the above impairments. I hereby deem this POC medically necessary. Please sign below. Date: documented in this encounter [facility] 06-20-2024 History of Presen t illness Narrative Images from the original note were not included. Physical Therapy Treatment Visit Patient Name: Darrin Seymour Today's Date: 06/20/2024 Encounter Diagnoses Name Primary? Left shoulder pain, unspecified chronicity Yes S/P arthroscopy of left shoulder Visit number: 9, $35 co-pay Timed Code Treatment Minutes: 32 minutes Total Treatment Time: 42 minutes Time In: 8:05 AM Time Out: 8:50 AM History: Pt underwent surgery for left RCR and bicep tendon on 04/25/24,. Pt has been compliant with use of sling. Now to begin PT. Pt states not taking any pain medication or OTC meds for shoulder. Sleeping on couch which was difficult but now getting better. Just had abductor pillow removed. No complaints of pain. Precautions: Sarah Ann Subjective: No significant pain coming in today. No adverse response to last session Pain: denies Objective: PT Evaluation (05/13/2024) SHOULDER PROM: 135 degrees flexion, 98 degrees abduction, 36 degrees ER, 55 degrees IR Strength: No strength testing due to time since surgery Observation: Incisions healing well, mild bruising present left upper arm Palpation: Mild tenderness with palpation to left anterior shoulder. Special Test: N/A Treatment: Manual Therapy: () Delivered manual ther to left UE/ shoulder PROM in all planes and gentle left GH mobs to increase ROM and mobility Therapeutic Exercise: ( 35 minutes) Guided pt through ther and flex ex per grid with mild progressions. Therapeutic Activity: Exercises to improve dynamic activities, functional tasks, functional mobility to return to prior activity level as needed. Neuromuscular re-education: Balance Training, Muscle Facilitation, Dynamic Stability, Core Stabilization, and Blood Flow Restriction Training (BFRT) as needed. Modalities: CP at end of session 10 minutes to reduce muscle soreness Assessment: visit #9 post left RCR performed on 04-25-24. 8 weeks post op today. Continued current POC. Fatigue noted with ball on wall exercise. Pt with mild compensation noted during exercises due to weakness. Will continue to progress. Outcome Measure: Upper Extremity Functional Index (UEFI): 56/80 Rehab Diagnosis: left shoulder pain and weakness; limited mobility left shoulder Short Term Goal: To be met in 2 weeks Goal 1: Pt to be instructed in home exercise program. [employer] Goals: To be met in 10 weeks Goal 1: Pt to report independence and compliance with home program. Goal 2: Pt to achieve 140 degrees of left shoulder flexion to assist with overhead reaching. Goal 3: Pt to achieve 120 degrees of left shoulder abduction to assist with ADL and dressing. Goal 4: Pt to achieve 4+ to 5/5 strength left shoulder in all planes to assist with functional tasks and lifting. Goal 5: Pt to score no less than 68/80 on UEFI indicating improved QOL. Pt will benefit from skilled PT for 2x/week from 05/13/2024 to 07/22/2024 to address the above impairments. I hereby deem this POC medically necessary. Please sign below. Date: documented in this encounter [facility] 06-16-2024 History of Presen t illness Narrative Images from the original note were not included. Physical Therapy Treatment Visit Patient Name: Darrin Seymour Today's Date: 06/16/2024 Encounter Diagnoses Name Primary? Left shoulder pain, unspecified chronicity Yes S/P arthroscopy of left shoulder Visit number: 8 Timed Code Treatment Minutes: 32 minutes Total Treatment Time: 42 minutes Time In: 10:00 AM Time Out: 10:49 AM History: Pt underwent surgery for left RCR and bicep tendon on 04/25/24,. Pt has been compliant with use of sling. Now to begin PT. Pt states not taking any pain medication or OTC meds for shoulder. Sleeping on couch which was difficult but now getting better. Just had abductor pillow removed. No complaints of pain. Precautions: Sarah Ann Subjective: Pt states he was a little sore following last session but it did not last too long. No significant pain coming in today. Pain: denies Objective: PT Evaluation (05/13/2024) SHOULDER PROM: 135 degrees flexion, 98 degrees abduction, 36 degrees ER, 55 degrees IR Strength: No strength testing due to time since surgery Observation: Incisions healing well, mild bruising present left upper arm Palpation: Mild tenderness with palpation to left anterior shoulder. Special Test: N/A Treatment: Manual Therapy: () Delivered manual ther to left UE/ shoulder PROM in all planes and gentle left GH mobs to increase ROM and mobility Therapeutic Exercise: (32 minutes) Guided pt through ther and flex ex per grid with mild progressions. Therapeutic Activity: Exercises to improve dynamic activities, functional tasks, functional mobility to return to prior activity level as needed. Neuromuscular re-education: Balance Training, Muscle Facilitation, Dynamic Stability, Core Stabilization, and Blood Flow Restriction Training (BFRT) as needed. Modalities: CP at end of session 10 minutes to reduce muscle soreness Assessment: visit #8 post left RCR performed on 04-25-24. Progressed exercises this date. Fatigue noted with active ROM greater than 90 degrees. Pt with mild compensation noted during exercises due to weakness. Will continue to progress Outcome Measure: Upper Extremity Functional Index (UEFI): 56/80 Rehab Diagnosis: left shoulder pain and weakness; limited mobility left shoulder Short Term Goal: To be met in 2 weeks Goal 1: Pt to be instructed in home exercise program. [employer] Goals: To be met in 10 weeks Goal 1: Pt to report independence and compliance with home program. Goal 2: Pt to achieve 140 degrees of left shoulder flexion to assist with overhead reaching. Goal 3: Pt to achieve 120 degrees of left shoulder abduction to assist with ADL and dressing. Goal 4: Pt to achieve 4+ to 5/5 strength left shoulder in all planes to assist with functional tasks and lifting. Goal 5: Pt to score no less than 68/80 on UEFI indicating improved QOL. Pt will benefit from skilled PT for 2x/week from 05/13/2024 to 07/22/2024 to address the above impairments. I hereby deem this POC medically necessary. Please sign below. Date: documented in this encounter [facility] 06-12-2024 History of Presen t illness Narrative Images from the original note were not included. Physical Therapy Treatment Visit Patient Name: Darrin Seymour Today's Date: 06/12/2024 Encounter Diagnoses Name Primary? Left shoulder pain, unspecified chronicity Yes S/P arthroscopy of left shoulder Visit number: 7 Timed Code Treatment Minutes: 30 minutes Total Treatment Time: 40 minutes Time In: 9:05 AM Time Out: 9:48 AM History: Pt underwent surgery for left RCR and bicep tendon on 04/25/24,. Pt has been compliant with use of sling. Now to begin PT. Pt states not taking any pain medication or OTC meds for shoulder. Sleeping on couch which was difficult but now getting better. Just had abductor pillow removed. No complaints of pain. Precautions: Sarah Ann Subjective: Pt states pain is minimal in left shoulder. Spoke with Dr and is OK to begin AROM. Trying to find pulleys at home. Pain: denies Objective: PT Evaluation (05/13/2024) SHOULDER PROM: 135 degrees flexion, 98 degrees abduction, 36 degrees ER, 55 degrees IR Strength: No strength testing due to time since surgery Observation: Incisions healing well, mild bruising present left upper arm Palpation: Mild tenderness with palpation to left anterior shoulder. Special Test: N/A Treatment: Manual Therapy: () Delivered manual ther to left UE/ shoulder PROM in all planes and gentle left GH mobs to increase ROM and mobility Therapeutic Exercise: (30 minutes) Guided pt through ther and flex ex per grid, added AAROM and AROM this date. Therapeutic Activity: Exercises to improve dynamic activities, functional tasks, functional mobility to return to prior activity level as needed. Neuromuscular re-education: Balance Training, Muscle Facilitation, Dynamic Stability, Core Stabilization, and Blood Flow Restriction Training (BFRT) as needed. Modalities: CP at end of session 10 minutes to reduce muscle soreness Assessment: visit #7 post left RCR performed on 04-25-24. AROM left shoulder is 146 degrees flexion and 144 degrees abduction. Pt able to actively IR left shoulder to reach lumbar region. Will continue to progress as pt tolerates. Pt purchased pulleys for HEP. Outcome Measure: Upper Extremity Functional Index (UEFI): 56/80 Rehab Diagnosis: left shoulder pain and weakness; limited mobility left shoulder Short Term Goal: To be met in 2 weeks Goal 1: Pt to be instructed in home exercise program. [facility] Goals: To be met in 10 weeks Goal 1: Pt to report independence and compliance with home program. Goal 2: Pt to achieve 140 degrees of left shoulder flexion to assist with overhead reaching. Goal 3: Pt to achieve 120 degrees of left shoulder abduction to assist with ADL and dressing. Goal 4: Pt to achieve 4+ to 5/5 strength left shoulder in all planes to assist with functional tasks and lifting. Goal 5: Pt to score no less than 68/80 on UEFI indicating improved QOL. Pt will benefit from skilled PT for 2x/week from 05/13/2024 to 07/22/2024 to address the above impairments. I hereby deem this POC medically necessary. Please sign below. Date: documented in this encounter [facility] 06-07-2024 Telephone encounter Note Spoke with pt. Marii MILNER sling.. Start AROM/ PROM,. No strengthening or resistance... keep therapy going pending follow up.. pt feels he is doing well and making progress [facility] 06-07-2024 Miscellaneous Notes Spoke with pt. Marii MILNER sling.. Start AROM/ PROM,. No strengthening or resistance... keep therapy going pending follow up.. pt feels he is doing well and making progress documented in this encounter [facility] 06-03-2024 Telephone encounter Note Patient left message about prozac dose. Dose increased to 40 mg last week and [facility] It will take 2-3 weeks to notice an improvement in mood and continue at 40 mg. [facility] 06-03-2024 Miscellaneous Notes Patient left message about prozac dose. Dose increased to 40 mg last week and script was sent to [facility]. It will take 2-3 weeks to notice an improvement in mood and continue at 40 mg. documented in this encounter [facility] 05-29-2024 History of Presen t illness Narrative Images from the original note were not included. Subjective Patient ID: Darrin Seymour is a 68 y.o. male who presents for Foot Pain (Darrin Seymour 68yo patient presents with Left foot lateral side foot pain. NKI, pain started 2 weeks ago. Pain level at a 2 at this time. Patient has been receiving steroid injections in his back and Blood sugars have been elevated per patient. BS [address] Campo 05/28/2024. Patient relates since starting Gabapentin in February Neuropathy pain has resolved. SS 11.5). HPI Chief complaint: Pain, swelling with mild discoloration of the left midfoot. Patient suspects the possibility of trauma; but is somewhat uncertain. Denies injury or trauma otherwise. Denies pop or snap sensation. Symptoms have been fairly stable over the past 3 or 4 weeks. Denies bleeding or drainage. Denies streaking or constitutional symptoms. There has been no specific treatment to date. Patient is well satisfied with therapeutic footwear and accommodative orthoses. Medications Current Outpatient Medications: ASPIRIN 81 MG chewable tablet, Chew 81 mg Daily, Disp: , Rfl: celecoxib (CeleBREX) 200 MG capsule, TAKE 1 CAPSULE BY MOUTH TWICE DAILY, Disp: 60 capsule, Rfl: 5 Continuous Blood Gluc Sensor (Dexcom G7 Sensor) misc, Inject 1 Device under the skin See administration instructions Change every 10 days, Disp: 9 each, Rfl: 3 [employer] Unifine Pentips 31G X 5 MM misc, USE DIRECTED FOUR TIMES DAILY, Disp: 100 each, Rfl: 3 fluorometholone (FML) 0.1 % ophthalmic suspension, instill 1 (ONE) DROP IN BOTH EYES FOUR TIMES DAILY FOR 7 DAYS then instill 1 (ONE) DROP IN BOTH EYES TWICE DAILY FOR 7 DAYS, Disp: , Rfl: FLUoxetine (PROzac) 40 MG capsule, Take 1 capsule (40 mg) by mouth Daily, Disp: 90 capsule, Rfl: 3 gabapentin (Neurontin) 100 MG capsule, Take by mouth, Disp: , Rfl: glucose blood ([employer] Ultra) test strip, Fsbs bid, Disp: 200 each, Rfl: 3 insulin glargine (Lantus SoloStar) 100 UNIT/ML pen, Inject 65 Units under the skin at bedtime, Disp: 60 mL, Rfl: 3 insulin lispro (HumaLOG) 100 UNIT/ML injection, INJECT 12 UNITS BREAKFAST, 25 UNITS LUNCH/ DINNER PLUS CORRECTIONS OF 1:30 > 150MG/DL ( MAX 100 UNITS A DAY), Disp: 90 mL, Rfl: 3 Lancets (Real Time WineTouch Delica Plus Vtcysg17P) [facility] [place], use to test BLOOD SUGAR THREE TIMES DAILY, Disp: , Rfl: lansoprazole (Prevacid) [address] capsule, lansoprazole 30 mg capsule,delayed release, Disp: , Rfl: lisinopril 10 MG tablet, Take 1 tablet (10 mg) by mouth Daily, Disp: , Rfl: loperamide (Imodium) 2 MG capsule, TAKE 1 CAPSULE BY MOUTH TWICE DAILY NEEDED, Disp: , Rfl: magnesium oxide (Mag-Ox) 400 (240 Mg) MG tablet, TAKE 1 TABLET BY MOUTH DAILY, Disp: 30 tablet, Rfl: 5 metoprolol succinate XL (Toprol-XL) 50 MG 24 hr tablet, TAKE 1 TABLET BY MOUTH DAILY, Disp: 30 tablet, Rfl: 5 semaglutide (Ozempic, 1 MG/DOSE,) 4 MG/3ML solution pen-injector, Inject 1 mg under the skin 1 (one) time per week, Disp: 9 mL, Rfl: 3 simvastatin (Zocor) 40 MG tablet, Take 1 tablet (40 mg) by mouth at bedtime, Disp: 30 tablet, Rfl: 5 tildrakizumab (Ilumya) 100 MG/ML injection, Inject under the skin, Disp: , Rfl: tiZANidine (Zanaflex) 4 MG tablet, Take 1 tablet (4 mg) by mouth 3 (three) times a day as needed for muscle spasms, Disp: 60 tablet, Rfl: 3 triamcinolone (Kenalog) 0.1 % cream, APPLY TO THE AFFECTED AREA(S) (PSORIASIS ON TRUNK AND ALL EXTREMITIES) DAILY NEEDED SUNDAY THROUGH SUNDAY DO NOT USE ON FACE), Disp: , Rfl: Allergies Patient has no known allergies. Past Surgical History Past Surgical History: Procedure Laterality Date APPENDECTOMY 1971 CHOLECYSTECTOMY COLONOSCOPY COLONOSCOPY 2016 EGD GALLBLADDER SURGERY 03/2021 HEEL SPUR SURGERY Right 2011 [place] KNEE SURGERY x2 arthroscopy OTHER SURGICAL HISTORY 07/31/2017 RM and T-tube, Timmis OTHER SURGICAL HISTORY Right 07/2020 Right PCR ROTATOR CUFF REPAIR Bilateral [id number] Wendy Crowell ROTATOR CUFF REPAIR 04/2024 SHOULDER ARTHROSCOPY Left 04/25/2024 LT SHOULDER SCOPE- DR HDEZ SHOULDER ARTHROSCOPY W/ SUBACROMIAL DECOMPRESSION AND DISTAL CLAVICLE EXCISION Right 12/10/2017 TONSILLECTOMY Family History Family History Problem Relation Name Age of Onset Hypertension Mother Diabetes Mother HAKEEM disease Mother Breast cancer Mother Alzheimer's disease Father Diabetes Father Hypertension Father Heart disease Father Stroke Father Mental illness Father Pancreatic cancer Maternal Grandfather GI problems Paternal Grandmother Other (peritonitis) Paternal Grandmother Stroke Paternal Grandfather Heart disease Paternal Grandfather Objective General Examination: GENERAL EXAMINATION: Alert and oriented. Pleasant disposition. FOOT EXAM: Date of Last Foot Exam 05/29/2024 Sensory testing performed: sensations normal Sensory and motor testing performed: strength normal Pedal pulse taking performed: 2+ Vascular: DORSALIS PEDIS PULSE: 2/4, bilaterally . POSTERIOR TIBIAL PULSE: 2/4, bilaterally . TEMPERATURE GRADIENT: warm to warm. EDEMA: unremarkable for ankle edema. CAPILLARY FILLING TIME(sec): capillary fill intact bilateral digits less than 3 secs . Neurologic: MUSCLE POWER: No focal deficits. TINELS SIGN: Negative along the tarsal tunnel. SHARP SENSATION: Tactile and soft touch appears compromised over the digital tops; otherwise appears intact. Vibratory sensation diminished at the MTP joints. SEMMES-CHAN 5.07 MONOFILAMENT: Inconsistent localization; over the digital and forefoot areas. Dermatologic: SKIN FINDINGS: Skin turgor is good. HYPERTROPHIC LESION: No forefoot or digital keratotic pressure lesions are noted. NAIL PATHOLOGY: multiple digits: Varying degrees of toenail dystrophy, thickening, elongation, discoloration, friability and crumbly texture, subtotal detachment, periungual hyperkeratotic debris, without drainage. INTERDIGITAL MACERATION:Clean, dry, non-inflamed. ULCER:no sign of ulceration or open wound . SKIN PATHOLOGY: mild xerosis (non-inflamed) of both heels. Orthopedic: FOOT MORPHOLOGY: Stance analysis: Symmetrical, stable foot construct, fairly rectus alignment, without apparent leg length discrepancy. JOINT RANGE OF MOTION: Maintains functional ankle, subtalar, midtarsal joint range of motion. Mild gastrocnemius equinus bilateral. DEFORMITIES: Right foot and ankle: Fairly prominent calcific deposition at the insertion of Achilles tendon; with posterior lateral Mone's deformity. HAV/hallux limitus deformity bilateral. Flexible contracture of the central digits bilateral PAIN ELICITED WITH PALPATION OF: Left foot: Mild-moderate diffuse tenderness over the lateral midfoot, with no appreciable swelling; with what appears to be fading ecchymosis. Well adhered thin eschar over the lateral midfoot; likely reflecting point of impact of some type of trauma. The site is non-inflamed, non-fluctuant, without bleeding, drainage or ulcerative changes.. Radiology: Radiographs: 3 views left foot: Weight-bearing: DP, oblique, lateral: 05/29/2024: Unremarkable for fracture or stress fracture changes. Unremarkable for acute osseous or joint pathology. Incidental findings include os peroneum within the cuboid groove; enthesophyte formation at the 5th metatarsal styloid. Assessment/Plan High suspicion for uncomplicated contusion of the left foot; likely sustained on or about 05/06/2024.. Xerosis with hyperkeratosis both feet. Type II diabetes/IDDM. Poorly controlled by history. Diabetic peripheral neuropathy (Q9). DJD left knee Plan: Review of clinical and x-ray findings, differential diagnosis, suspected etiology and contributing/aggravating factors, treatment strategy, rationale and objectives. No specific intervention today. Inspect and assess daily for any skin changes, ulceration etc. and follow accordingly. Encourage compliance with therapeutic footwear and accommodative orthoses. Encourage tight glycemic control. Recommend frequent emollient therapy. Procedure: This note was created with the assistance of a speech recognition program. While intending to generate a timely document that accurately reflects the content of the visit, no guarantee can be provided that every grammatical or spelling mistake has been or will be identified or corrected. Thank you for your understanding. Dexter Krishnamurthy DPM documented in this encounter [facility] 05-29-2024 Instructions Dexter Krishnamurthy DPM - 05/29/2024 2:45 PM EST As noted documented in this encounter [facility] 05-29-2024 History of Presen t illness Narrative Physical Therapy Treatment Visit Patient Name: Darrin Seymour Today's Date: 05/29/2024 Encounter Diagnoses Name Primary? Left shoulder pain, unspecified chronicity Yes S/P arthroscopy of left shoulder Visit number: 4 Timed Code Treatment Minutes: 30 minutes Total Treatment Time: 40 minutes Time In: 0900 Time Out: 0940 History: Pt underwent surgery for left RCR and bicep tendon on 04/25/24,. Pt has been compliant with use of sling. Now to begin PT. Pt states not taking any pain medication or OTC meds for shoulder. Sleeping on couch which was difficult but now getting better. Just had abductor pillow removed. No complaints of pain. Precautions: Sarah Ann Subjective: Pt reports he has probably using shoulder more than he should and is lifting objects. Pt. Was strongly educated to NOT lift and use shoulder and to wear sling. Pain: 0/10 Objective: PT Evaluation (05/13/2024) SHOULDER PROM: 135 degrees flexion, 98 degrees abduction, 36 degrees ER, 55 degrees IR Strength: No strength testing due to time since surgery Observation: Incisions healing well, mild bruising present left upper arm Palpation: Mild tenderness with palpation to left anterior shoulder. Special Test: N/A Treatment: Education: HEP education with demonstration, Educated on Eval Findings and POC Manual Therapy: (20 minutes) Passive ROM, Joint mobilization, Soft Tissue Mobilization, Myofascial Release, Muscle Energy Technique, Neural Mobilization, Myofascial Cupping, Dry Needling, IASTM, and Scar mobilization as needed. PROM and gentle left GH mobs to increase ROM and mobility. Therapeutic Exercise: (10 minutes) Strength, Endurance, Flexibility, ROM, HEP, Neural Mobilization, Power, and Core Stability as needed. Pt performed and instructed in home program this date; written instructions and pictures issued with good pt understanding. Additional unsupervised. Therapeutic Activity: Exercises to improve dynamic activities, functional tasks, functional mobility to return to prior activity level as needed. Neuromuscular re-education: Balance Training, Muscle Facilitation, Dynamic Stability, Core Stabilization, and Blood Flow Restriction Training (BFRT) as needed. Modalities: Heat, Ice, Electrical Stimulation, Ultrasound, Cervical Mechanical Traction, Lumbar Mechanical Traction, Iontophoresis, and Fluidotherapy as needed. CP at end of session 10 minutes. Assessment: Pt is 68 y/o male with recent left RCR. Pt non-compliant with use of sling, discussed risks and recommended wearing sling per doctor. Pt presents with improved left shoulder PROM; full ROM of left elbow and wrist noted. Tolerates PROM well, improved tolerance to cuing to relax. Pt will benefit from further PT. Outcome Measure: Upper Extremity Functional Index (UEFI): 56/80 Rehab Diagnosis: left shoulder pain and weakness; limited mobility left shoulder Short Term Goal: To be met in 2 weeks Goal 1: Pt to be instructed in home exercise program. Senior Care Goals: To be met in 10 weeks Goal 1: Pt to report independence and compliance with home program. Goal 2: Pt to achieve 140 degrees of left shoulder flexion to assist with overhead reaching. Goal 3: Pt to achieve 120 degrees of left shoulder abduction to assist with ADL and dressing. Goal 4: Pt to achieve 4+ to 5/5 strength left shoulder in all planes to assist with functional tasks and lifting. Goal 5: Pt to score no less than 68/80 on UEFI indicating improved QOL. Pt will benefit from skilled PT for 2x/week from 05/13/2024 to 07/22/2024 to address the above impairments. I hereby deem this POC medically necessary. Please sign below. Date: documented in this encounter [facility] 05-28-2024 History of Presen t illness Narrative Associated Problem(s): Type 2 diabetes mellitus with stage 3b chronic kidney disease, with long-term current use of insulin ([facility]) ([facility]) Renal function stable. Continue lisinopril and ozempic. Associated Problem(s): Type 2 diabetes mellitus with diabetic polyneuropathy, with long-term current use of insulin ([facility]) BS improving and follow up with endo. Associated Problem(s): Lumbar spondylosis Pain starting to worsen and follow with pain management. Continue celebrex. Associated Problem(s): JARAD (generalized anxiety disorder) ([facility]) Worsening symptoms and increase prozac. Warned will take 2-3 weeks to notice improvement in mood. Use valium PRN. Associated Problem(s): Benign essential hypertension ([facility]) BP controlled and monitor PRN. Discussed DASH diet. Subjective Patient ID: Darrin Seymour is a 68 y.o. male who presents for Dry Eye and Follow-up (6m/Would like med increase). Follow up HTN, anxiety, back pain, and DM. Patient feels well today. Checking BP PRN and typically controlled. BP normal today. Taking medication daily and tolerating without side effects. Anxiety recently worse. Nervous and worry all the time. Stressed out and overwhelmed. Thought racing and hard to clear mind. [place], irritable and snapping at others. Easily upset and overreact. Notice not as calm as when first started prozac. Has valium and uses PRN. Back pain starting to get worse. Pain in low back and across hips. Occasional radiation into gluteal region and down legs. Plan on ablation but need shoulder to heal from surgery. Following with endocrinology for DM and recent A1C 7.9. Review of Systems Constitutional: Negative for fatigue. Respiratory: Negative for cough, shortness of breath and wheezing. Cardiovascular: Negative for chest pain and palpitations. Gastrointestinal: Negative for abdominal pain, diarrhea, nausea and vomiting. Genitourinary: Negative for dysuria. Objective Physical Exam Constitutional: General: He is not in acute distress. Appearance: Normal appearance. HENT: Head: Normocephalic. Right Ear: Tympanic membrane and ear canal normal. Left Ear: Tympanic membrane and ear canal normal. Eyes: Extraocular Movements: Extraocular movements intact. Pupils: Pupils are equal, round, and reactive to light. Cardiovascular: Rate and Rhythm: Normal rate and regular rhythm. Heart sounds: No murmur heard. No friction rub. No gallop. Pulmonary: Breath sounds: Normal breath sounds. No wheezing, rhonchi or rales. Abdominal: General: Bowel sounds are normal. There is no distension. Palpations: Abdomen is soft. Tenderness: There is no abdominal tenderness. There is no guarding or rebound. Musculoskeletal: Left lower leg: No edema. Neurological: Mental Status: He is alert. Assessment/Plan Problem List Items Addressed This Visit Benign essential hypertension (CMS/HCC) - Primary BP controlled and monitor PRN. Discussed DASH diet. Type 2 diabetes mellitus with diabetic polyneuropathy, with long-term current use of insulin (CMS/HCC) BS improving and follow up with endo. Lumbar spondylosis Pain starting to worsen and follow with pain management. Continue celebrex. Relevant Medications tiZANidine (Zanaflex) 4 MG tablet JARAD (generalized anxiety disorder) (CMS/HCC) Worsening symptoms and increase prozac. Warned will take 2-3 weeks to notice improvement in mood. Use valium PRN. Relevant Medications FLUoxetine (PROzac) 40 MG capsule documented in this encounter [facility] 05-12-2024 Telephone encounter Note $35.00 copay / prior-auth needed. [facility] 05-12-2024 Miscellaneous Notes $35.00 copay / prior-auth needed. documented in this encounter [facility] 05-09-2024 History of Presen t illness Narrative Images from the original note were not included. HISTORY OF PRESENT ILLNESS: POST OP PT Milad Seymour is an 68 y.o. @ male. No surgery found s/p surgery onNo surgery found EST PT 1ST P/O - (L) SHOULDER SCOPE 04/25/2024 @FOREIGN (2WKS)- DOING GREAT- WEARING ULTRA SLING BUT ADMITS TO TAKING OFF OFTEN AND USING MORE THAN HE SHOULD- NO PAIN MEDS - SUTURES REMOVED WITHOUT DIFFICULTY REVIEW OF SYSTEMS: General: Denies fever, fatigue or weight loss Lungs: Denies SOB Cardio: Denies chest pain GI: Denies indigestion or abdominal pain Neuro: Denies numbness or tingling, denies new onset paralysis Musculoskeletal: ( see note) PHYSICAL EXAM: Left Shoulder Exam Left shoulder exam is normal. Tenderness The patient is experiencing no tenderness (compartments soft). Range of Motion Left shoulder passive abduction: gentle pendulums easily. Muscle Strength Left shoulder normal muscle strength: gentle pendulums easily, fires rotator cuff and deltoid. Other Erythema: absent Scars: present (Portals well healing, sutures removed, no erythema, drainge or discharge, no dehisence) Sensation: normal Pulse: present Comments: Moderate dependent bruising. The operative upper extremity was noted to be neurovascularly unchanged. Sensation to light touch was intact to all dermatomes to operative upper extremity. Radial and ulnar pulses were present and equal bilaterally. Patient was able to motor elbow wrist and fingers in all anatomic planes with 5 out of 5 strength on the operative upper extremity. Compartments were soft to operative upper extremity. There was no evidence of infection or ascending lymphangitis to operative extremity. Procedures No orders of the defined types were placed in this encounter. ASSESSMENT: No diagnosis found. S/p rotator cuff repair. Biceps tenodesis Assessment & Plan 1. Status post left shoulder arthroscopy. He is doing well and reports no pain. He had a near fall at home, striking his left shoulder on a washing machine, which caused a temporary increase in pain. Time will tell if this will affect his long-term healing as he was not wearing the sling at the time. . He has not been wearing the sling at home against medical advice. He verbalized the importance of wearing his sling for optimal healing given he is only 2 weeks postop. He will continue in the sling for the next 4 weeks pending follow-up. He is agreeable to do physical therapy for passive range of motion, no active range of motion, no strengthening or resistance. Follow-up Return in 4 weeks for follow up. Questions answered in laymen terms at the bedside. The diagnosis, home exercise plan and any ongoing restrictions/ recommendations reviewed. If unable to be reached in office, I recommend evaluation at nearest Emergency Room if any symptoms worsened or new symptoms develop for requiring urgent evaluation. documented in this encounter [facility] 05-09-2024 Instructions TK Cantu - 05/09/2024 9:00 AM EST Discussed patient being 2 wks s/p Rotator cuff surgery: surgery discussed at bedside. Continue in sling until follow up to protect repair. ( 6 wks post op) May remove sling to shower and change clothing. Also remove sling 2- 3 times a day to continue home exercises for hand, wrist and elbow range of motion. No weight in operative arm. No lifting anything heavier than coffee cup. Referral for Therapy given/sent electronically, please call Therapy facility to schedule as soon as possible documented in this encounter [facility] 04-29-2024 History of Presen t illness Narrative Associated Problem(s): Type 2 diabetes mellitus with diabetic polyneuropathy, with long-term current use of insulin ([facility]) During the appointment today all pertinent [...] have any problems or questions. Milad Seymour blood sugars are worsening. , The patient is wearing their cgm [...] today include: Insulin instructions and Dietary education. His bg are elevated due to multiple factors including recent shoulder surgery in which insulin was decreased, being off ozempic for the last few weeks, and steroid injection for his back about a week ago. Will work on getting him back on track. Increase his lantus and insulin for breakfast. He can take insulin as well for a high carb snack but would mainly snack on protein if he is going to snack. Images from the original note were not included. Milad Seymour is a 68 y.o. male presents with chief complaint of Diabetes HPI: Diabetes Mellitus Follow-up: Milad Seymour is here for follow-up evaluation of diabetes mellitus. The initial diagnosis of diabetes was made in 2010 Diabetes complications: peripheral neuropathy He has been checking his blood glucose with the Dexcom G7 CGM - LINKED- on a daily basis. He is running around 180-220 at baseline and will spike up into the 300-350 range at times. Last A1c: 6.8 (01/31/24) Last eye exam: Due Current concerns include: States his bg levels are higher d/t steroid injections Has been getting steroid injections a month ago, and Last Sunday was his last steroid injection- given for back pain. Had shoulder surgery this past Sunday. Stopped ozempic April 07 for surgery and just started back yesterday. Diet: limiting carbs and portions. Drinks: water, powerade zero, 2% milk Exercise: None Hypoglycemia: None Diabetes Associated symptoms include fatigue. Pertinent negatives for diabetes include no chest pain, no polydipsia, no polyphagia and no polyuria. SUBJECTIVE: PROBLEM LIST SOCIAL ALLERGIES: Patient Active Problem List Diagnosis GERD (gastroesophageal reflux disease) Fatigue Enlarged prostate with urinary obstruction Acquired Mone's deformity of right heel Allergic rhinitis Anemia Arthritis of left knee Chronic myringitis of right ear Complete rotator cuff tear or rupture of right shoulder, not specified as traumatic Difficulty walking Dysfunction of right eustachian tube Benign non-nodular prostatic hyperplasia with lower urinary tract symptoms Iron deficiency anemia due to chronic blood loss Lightheadedness Localized, primary osteoarthritis of hand Nocturia Orthostatic hypotension Osteoarthritis of knee Benign essential hypertension ([facility]) Primary osteoarthritis, right shoulder Prostate cancer ([facility]) Proteinuria Hypercholesteremia ([facility]) Renal failure 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, with long-term current use of insulin ([facility]) Long-term insulin use ([facility]) Class 2 severe obesity due to excess calories with serious comorbidity and body mass index (BMI) of 35.0 to 35.9 in adult ([facility]) Lumbar spondylosis Bilateral leg edema Encounter for long-term (current) use of medications Obesity (BMI 30-39.9) FRANK (obstructive sleep apnea) Chronic fatigue Right hand pain Hypersomnia Fasciculations Memory impairment Bilateral carpal tunnel syndrome Foot drop, right Lumbar radiculopathy Cervical radiculopathy Family history of Parkinson's disease JARAD (generalized anxiety disorder) ([facility]) Type 2 diabetes mellitus with stage 3a chronic kidney disease, with long-term current use of insulin ([facility]) ([facility]) Social History Tobacco Use Smoking status: Former Current packs/day: 1.50 Types: Cigarettes Smokeless tobacco: Never Tobacco comments: Last smoked: 3-6 months ago Heavy cigarette smoker (20-39 cigs/day) Vaping Use Vaping status: Never Used Substance Use Topics Alcohol use: Not Currently Comment: Caffeine intake: none Drug use: Never No Known Allergies Synopsis SmartLink Latest Ref Rng & Units 04/29/2024 03/18/2024 09:07 03/17/2024 00:00 Antidiabetic medications Insulin Glargine 60 Units Nightly SC-Discontinued (Dose adjustm) 60 Units Nightly SC 60 Units Nightly SC Insulin Glargine 65 Units Nightly SC Insulin Lispro INJECT 5-10 UNITS BREAKFAST, 25 UNITS LUNCH/ DINNER PLUS CORRECTIONS OF 1:30 > 150MG/DL ( MAX 100 UNITS A DAY) (100 UNIT/ML SOPN) -Discontinued (Dose adjustm) Insulin Lispro INJECT 5-10 UNITS BREAKFAST, 30 UNITS LUNCH/ DINNER PLUS CORRECTIONS OF 1:30 > 150MG/DL ( MAX 100 UNITS A DAY) (100 UNIT/ML SOPN)-Discontinued (Dose adjustm) INJECT 5-10 UNITS BREAKFAST, 30 UNITS LUNCH/ DINNER PLUS CORRECTIONS OF 1:30 > 150MG/DL ( MAX 100 UNITS A DAY) (100 UNIT/ML SOPN) INJECT 5-10 UNITS BREAKFAST, 30 UNITS LUNCH/ DINNER PLUS CORRECTIONS OF 1:30 > 150MG/DL ( MAX 100 UNITS A DAY) (100 UNIT/ML SOPN) Insulin Lispro INJECT 12 UNITS BREAKFAST, 25 UNITS LUNCH/ DINNER PLUS CORRECTIONS OF 1:30 > 150MG/DL ( MAX 100 UNITS A DAY) (100 UNIT/ML SOPN) Semaglutide 1 mg Weekly SC 1 mg Weekly SC 1 mg Weekly SC Labs MHPT A1C 7.9 Creatinine 0.60 - 1.30 mg/dL 0.60 - 1.30 mg/dL 1.60 METHOD TRACEABLE TO IDMS STANDARD 1.60 METHOD TRACEABLE TO IDMS STANDARD Outpatient prescription Medication marked as long-term This result is from an external source. REVIEW OF SYMPTOMS: Review of Systems Constitutional: Positive for fatigue. Negative for appetite change and unexpected weight change. Eyes: Negative for visual disturbance. Respiratory: Negative for cough, shortness of breath and wheezing. Cardiovascular: Negative for chest pain, palpitations and leg swelling. Neurological: Positive for numbness. Endocrine: Negative for polydipsia, polyphagia and polyuria. OBJECTIVE: 04/29/2024 10:46 AM 04/08/2024 10:00 AM 03/18/2024 8:28 AM Vitals BMI 35.61 kg/m2 35.73 kg/m2 35.73 kg/m2 Systolic 124 Diastolic 78 Heart Rate 84 Temp 96.1 F Height (in) 5' 10 5' 10 5' 10 Weight (lb) 248.2 249 249 Visit Report Report Report Report Physical Exam Constitutional: General: He is not [...] polyneuropathy, with long-term current use of insulin ([facility]) During the appointment today all pertinent [...] have any problems or questions. Milad Seymour blood sugars are worsening. , The patient is wearing their cgm [...] today include: Insulin instructions and Dietary education. His bg are elevated due to multiple factors including recent shoulder surgery in which insulin was decreased, being off ozempic for the last few weeks, and steroid injection for his back about a week ago. Will work on getting him back on track. Increase his lantus and insulin for breakfast. He can take insulin as well for a high carb snack but would mainly snack on protein if he is going to snack. Relevant Medications insulin lispro (HumaLOG) 100 UNIT/ML injection insulin glargine (Lantus SoloStar) 100 UNIT/ML pen Other Relevant Orders POCT glycosylated hemoglobin (Hb A1C) docked device (Completed) Long-term insulin use ([facility]) Class 2 severe obesity due to excess calories with serious comorbidity and body mass index (BMI) of 35.0 to 35.9 in adult ([facility]) - Primary Type 2 diabetes mellitus with stage 3a chronic kidney disease, with long-term current use of insulin ([facility]) ([facility]) Follow up in about 3 months (around 07/30/2024) for Recheck. Patient's Medications New Prescriptions No medications on file Previous Medications ASPIRIN 81 MG CHEWABLE TABLET Chew 81 mg Daily CELECOXIB (CELEBREX) 200 MG CAPSULE TAKE 1 CAPSULE BY MOUTH TWICE DAILY CONTINUOUS BLOOD GLUC SENSOR (Narzana TechnologiesCOM G7 SENSOR) MISC Inject 1 Device under the skin See administration instructions Change every 10 days CYCLOBENZAPRINE (FLEXERIL) 10 MG TABLET Take 10 mg by mouth in the morning and 10 mg in the evening and 10 mg before bedtime. [facility] UNIFINE PENTIPS 31G X 5 MM MISC USE DIRECTED FOUR TIMES DAILY FLUOROMETHOLONE (FML) 0.1 % OPHTHALMIC SUSPENSION instill 1 (ONE) DROP IN BOTH EYES FOUR TIMES DAILY FOR 7 DAYS then instill 1 (ONE) DROP IN BOTH EYES TWICE DAILY FOR 7 DAYS FLUOXETINE (PROZAC) 20 MG CAPSULE TAKE 1 CAPSULE BY MOUTH DAILY GABAPENTIN (NEURONTIN) 100 MG CAPSULE Take by mouth GLUCOSE BLOOD (Nexenta SystemsUCH ULTRA) TEST STRIP Fsbs bid LANCETS (Nexenta SystemsUCH DELICA PLUS [id number]) MISC use to test BLOOD SUGAR THREE TIMES DAILY LANSOPRAZOLE (PREVACID) [address] CAPSULE lansoprazole 30 mg capsule,delayed release LISINOPRIL 10 MG TABLET Take 1 tablet (10 mg) by mouth Daily LOPERAMIDE (IMODIUM) 2 MG CAPSULE TAKE 1 CAPSULE BY MOUTH TWICE DAILY NEEDED MAGNESIUM OXIDE (MAG-OX) 400 (240 MG) MG TABLET TAKE 1 TABLET BY MOUTH DAILY METOPROLOL SUCCINATE XL (TOPROL-XL) 50 MG 24 HR TABLET TAKE 1 TABLET BY MOUTH DAILY SEMAGLUTIDE (OZEMPIC, 1 MG/DOSE,) 4 MG/3ML SOLUTION PEN-INJECTOR Inject 1 mg under the skin 1 (one) time per week SIMVASTATIN (ZOCOR) 40 MG TABLET Take 1 tablet (40 mg) by mouth at bedtime TILDRAKIZUMAB (ILUMYA) 100 MG/ML INJECTION Inject under the skin TRIAMCINOLONE (KENALOG) 0.1 % CREAM APPLY TO THE AFFECTED AREA(S) (PSORIASIS ON TRUNK AND ALL EXTREMITIES) DAILY NEEDED SUNDAY THROUGH SUNDAY DO NOT USE ON FACE) Modified Medications Modified Medication Previous Medication INSULIN GLARGINE (LANTUS SOLOSTAR) 100 UNIT/ML PEN insulin glargine (Lantus SoloStar) 100 UNIT/ML pen Inject 65 Units under the skin at bedtime Inject 60 Units under the skin at bedtime INSULIN LISPRO (HUMALOG) 100 UNIT/ML INJECTION insulin lispro (HumaLOG) 100 UNIT/ML injection INJECT 12 UNITS BREAKFAST, 25 UNITS LUNCH/ DINNER PLUS CORRECTIONS OF 1:30 > 150MG/DL ( MAX 100 UNITS A DAY) INJECT 5-10 UNITS BREAKFAST, 30 UNITS LUNCH/ DINNER PLUS CORRECTIONS OF 1:30 > 150MG/DL ( MAX 100 UNITS A DAY) Discontinued Medications OXYCODONE-ACETAMINOPHEN (PERCOCET) 5-325 MG TABLET Take 1 tablet by mouth every 6 (six) hours if needed for moderate pain for up to 5 days I have reviewed and reconciled the history and medication list with the patient today. documented in this encounter [facility] 04-24-2024 Telephone encounter Note Post op pain rx. PDMP reviewed [facility] 04-24-2024 Miscellaneous Notes Post op pain rx. PDMP reviewed documented in this encounter [facility] 04-23-2024 Telephone encounter Note BP very low and patient having symptoms. Decrease lisinopril to once a day and continue to monitor. [facility] 04-23-2024 Miscellaneous Notes BP very low and patient having symptoms. Decrease lisinopril to once a day and continue to monitor. documented in this encounter [facility] 04-08-2024 History of Presen t illness Narrative [...] Hypertension (CMS/HCC) Iron Infusions on going per [facility] , Low back pain Migraine ([facility]/HCC) Otitis externa Prostate cancer ([facility]/HCC) 2018 radiation PVC (premature ventricular contraction) Right shoulder pain Rotator cuff tear, right 2020 Sleep apnea PAST SURGICAL HISTORY: Past Surgical History: Procedure Laterality Date APPENDECTOMY 1970 CHOLECYSTECTOMY COLONOSCOPY COLONOSCOPY 2015 EGD GALLBLADDER SURGERY 03/2021 HEEL SPUR SURGERY Right 2011 [facility] KNEE SURGERY x2 arthroscopy OTHER SURGICAL HISTORY 07/31/2017 RM and T-tube, Timmis OTHER SURGICAL HISTORY Right 07/2020 Right PCR ROTATOR CUFF REPAIR Bilateral [id number] Wendy Crowell ROTATOR CUFF REPAIR SHOULDER ARTHROSCOPY [...] 10 mg, Oral, 3 times daily Drug [place] Unifine Pentips 31G X 5 MM misc USE DIRECTED FOUR TIMES DAILY fluorometholone (FML) 0.1 % ophthalmic suspension instill 1 (ONE) DROP IN BOTH EYES FOUR TIMES DAILY FOR 7 DAYS then instill 1 (ONE) DROP IN BOTH EYES TWICE DAILY FOR 7 DAYS FLUoxetine (PROZAC) 20 mg, Oral, Daily gabapentin (Neurontin) 100 MG capsule Oral glucose blood (Real Time WineTouch Ultra) test strip Fsbs bid insulin lispro (HumaLOG) 100 UNIT/ML injection INJECT 5-10 UNITS BREAKFAST, 30 UNITS LUNCH/ DINNER PLUS CORRECTIONS OF 1:30 > 150MG/DL ( MAX 100 UNITS A DAY) Lancets (Real Time WineTouch Delica Plus [id number]) misc use to test BLOOD SUGAR THREE [...] @FOREIGN SX INSTRUCTIONS GIVEN TODAY 04/08 @8:15AM - [place] DR. CAMPO CLEARANCE ; OBTAINED ULTRASLING GIVEN AT PRIOR APPT [facility] NOTIFIED PA APPROVED ([id number]) Follow up for 05/09 @9am w/tish in [place]. documented in this encounter [facility] 03-25-2024 Telephone encounter Note Case cancelled as he took aspirin and celebrex [facility] Work Phone: 03-25-2024 Miscellaneous Notes Case cancelled as he took aspirin and celebrex Post op pain rx. PDMP reviewed documented in this encounter [facility] 03-24-2024 Telephone encounter Note Post op pain rx. PDMP reviewed [facility] 03-18-2024 Telephone encounter Note Reviewed Pre-op labs.. Abdnormal renal function and potassium level. Labs in chart... Dr. Campo.. are you willing to address? [facility] Work Phone: 03-18-2024 Miscellaneous Notes Reviewed Pre-op labs.. Abdnormal renal function and potassium level. Labs in chart... Dr. Campo.. are you willing to address? documented in this encounter [facility] 03-18-2024 History of Presen t illness [...] Hypertension (CMS/HCC) Iron Infusions on going per [facility] , Low back pain Migraine (CMS/HCC) Otitis externa Prostate cancer (CMS/HCC) 2018 radiation PVC (premature ventricular contraction) Right shoulder pain Rotator cuff tear, right 2020 Sleep apnea PAST SURGICAL HISTORY: Past Surgical History: Procedure Laterality Date APPENDECTOMY 1970 CHOLECYSTECTOMY COLONOSCOPY COLONOSCOPY 2016 EGD GALLBLADDER SURGERY 03/2021 HEEL SPUR SURGERY Right 2011 [place] KNEE SURGERY x2 arthroscopy OTHER SURGICAL HISTORY 07/31/2017 RM and T-tube, Timmis OTHER SURGICAL HISTORY Right 07/2020 Right PCR ROTATOR CUFF REPAIR Bilateral [id number] Wendy Crowell ROTATOR CUFF REPAIR SHOULDER ARTHROSCOPY [...] mg, Oral, 3 times daily PRN Drug [place] Unifine Pentips 31G X 5 MM misc USE DIRECTED FOUR TIMES DAILY fluorometholone (FML) 0.1 % ophthalmic suspension instill 1 (ONE) DROP IN BOTH EYES FOUR TIMES DAILY FOR 7 DAYS then instill 1 (ONE) DROP IN BOTH EYES TWICE DAILY FOR 7 DAYS FLUoxetine (PROZAC) 20 mg, Oral, Daily glucose blood (Mission Researchuch Ultra) test strip Fsbs bid insulin lispro (HumaLOG) 100 UNIT/ML injection INJECT 5-10 UNITS BREAKFAST, 30 UNITS LUNCH/ DINNER PLUS CORRECTIONS OF 1:30 > 150MG/DL ( MAX 100 UNITS A DAY) Lancets (Real Time WineTouch Delica Plus [id number]) misc use to test BLOOD SUGAR THREE [...] SX INSTRUCTIONS GIVEN TODAY 03/18 @8:30AM - [facility]TR[facility] GIVEN TODAY AR[facility] NOTIFIED PA APPROVED ([id number]) Patient presents today for fitting of left [...] Follow up for 04/08 @9am w/tish in [place]. documented in this encounter [facility] 03-17-2024 Telephone encounter Note Please notify pt bg will usually go up for 3-4 days after steroid injections (sometimes 7-10 days). Looks like they are coming down a little. I would recommend increasing his insulin for lunch and dinner to 30 units. Is he still taking ozempic 1 mg weekly? We gave him a sample at his last visit and he was waiting on patient assistance. [facility] 03-17-2024 Miscellaneous Notes Please notify pt bg will usually go up for 3-4 days after steroid injections (sometimes 7-10 days). Looks like they are coming down a little. I would recommend increasing his insulin for lunch and dinner to 30 units. Is he still taking ozempic 1 mg weekly? We gave him a sample at his last visit and he was waiting on patient assistance. documented in this encounter [facility] 03-03-2024 History of Presen t illness Narrative Images from the original note were not included. HISTORY OF PRESENT ILLNESS: EST PT Milad Seymour is an 68 y.o. @ male. EST PT RECHECK LT SHOULDER INJURY 11/4/23 (~10MO) RECENT A1C 6.8 ON 01/31/[address] ROSS (IN 01/31/24 ENCOUNTER) XRAY LT SHOULDER TODAY EPIC 03/03/24 XRAY CHANGE 04/30/23 CT ARTHROGRAM 07/24/23 [facility] [place]; UNABLE TO DUE TO CLAUSTROPHOBIA DEPO INJECTION 04/30/23 NO MDP/PREDNISONE HX LT RCR YEARS AGO, DR CROWELL PAIN GENERALLY WITH MOVEMENT/LIFTING- C/O ACHINESS- +ALEVE- PAINFUL ROM- SOME WEAKNESS- PT TRIES TO LIMIT ACTIVITY RT HANDED. MELISSA: FELT SOMETHING POP WHEN ROLLING OVER ALLERGIES: No Known Allergies HOME MEDICATIONS: Current Outpatient Medications Medication Instructions aspirin (ASPIRIN) 81 mg, Oral, Daily celecoxib (CELEBREX) 200 mg, Oral, 2 times daily Continuous Blood Gluc Sensor (Dexcom G7 Sensor) misc 1 Device, Subcutaneous, See admin instructions, Change every 10 days cyclobenzaprine (FLEXERIL) 10 mg, Oral, 3 times daily diazePAM (VALIUM) 5 mg, Oral, 3 times daily PRN Drug [place] Unifine Pentips 31G X 5 MM misc USE DIRECTED FOUR TIMES DAILY fluorometholone (FML) 0.1 % ophthalmic suspension instill 1 (ONE) DROP IN BOTH EYES FOUR TIMES DAILY FOR 7 DAYS then instill 1 (ONE) DROP IN BOTH EYES TWICE DAILY FOR 7 DAYS FLUoxetine (PROZAC) 20 mg, Oral, Daily glucose blood (Adaptive Computing Ultra) test strip Fsbs bid insulin lispro (HumaLOG) 100 UNIT/ML injection INJECT 5-10 UNITS BREAKFAST, 25 UNITS LUNCH/ DINNER PLUS CORRECTIONS OF 1:30 > 150MG/DL ( MAX 100 UNITS A DAY) Lancets (Real Time WineTouch Delica Plus [id number]) [facility] use to test BLOOD SUGAR THREE TIMES [...] Nightly spironolactone (ALDACTONE) 50 mg, Oral, Daily PHYSICAL EXAM: Shoulder Musculoskeletal Exam Inspection Left Left shoulder inspection is normal. Ecchymosis: none Peripheral edema: none Atrophy: none Masses: none Prior incision: arthroscopic portals Incision: well-healed Palpation Left Crepitus: no crepitus Increased warmth: none Tenderness: present Anterior shoulder: mild AC joint: mild Lateral arm: mild Range of Motion Right Right shoulder active abduction: + pain passing 90 degrees. Left Left shoulder range of motion is normal. Active ROM: abnormal and pain. Passive ROM: normal and pain. Strength Left External rotation: 5/5. Internal rotation: 5/5. Abduction: 5/5. Biceps: 5/5. Triceps: 5/5. Neurovascular Left Radial pulse: normal and 2+ Capillary refill: <3 sec Axillary nerve sensory distribution: normal Scapula Left Left shoulder scapula is normal. Position: normal Winging: none Special Tests Left Rotator Cuff Signs Neer's test: positive Shaw test: positive Painful arc test: positive Biceps/sophie Signs Speed's test: negative Vitals: There is no height or weight on file to calculate BMI. Tobacco Use: Medium Risk (03/03/2024) Patient History Smoking Tobacco Use: Former Smokeless Tobacco Use: Never Passive Exposure: Not on file Alcohol Use: Not At Risk (01/09/2023) AUDIT-C Frequency of Alcohol Consumption: Never Average Number of Drinks: Patient does not drink Frequency of Binge Drinking: Never IMAGING: Procedures Orders Placed This Encounter Procedures XR shoulder 2+ views left Order Specific Question: Reason for exam: Answer: PAIN ASSESSMENT: ICD-10-CM 1. Internal derangement of left shoulder M24.812 2. Acute pain of left shoulder M25.512 XR shoulder 2+ views left PLAN: We have answered all the patients questions and explained the patients condition, decision making and plan including the risks and benefits associated with said plan in layman''s terms in a language the patient could understand easily. If patient''s symptoms significantly worsen and they cannot get a hold of us or their family physician, we have recommended that the patient proceed to the nearest emergency department (room). Dr. Hdez obtained history and examined the patient, I am acting as scribe for Dr. Hdez/[facility], PLAN: WE have discussed (L) shoulder xrays and reviewed prior (L) shoulder arthrogram results : rotator cuff tear. After examination of his left shoulder today we have discussed both surgical and nonsurgical intervention, with the risks / benefits of both. Patient is requesting a (L) shoulder scope as the pain is affecting his ADL's - limited ROM secondary to pain. He is understanding if a repair is made he could be in a sling for at least 6 weeks and not lifting anything heavier than a coffee cup for at least 12 weeks. We have discussed his HEP and restrictions and will see him back on the day of sx. Surgery - Diagnostic and operative (L) shoulder scope w/RCR We have discussed both surgical and nonsurgical treatment options with the patient at length and the risks and benefits associated with both. The patient is requesting surgical intervention because they have not responded to outpatient treatment options including but not limited to rest ice, and home exercise program. Pain and decreased range of motion are affecting the patient''s ability to sleep and activities of daily living and we have recommended surgical intervention. Johanne Hdez D.O. documented in this encounter [facility] 02-04-2024 Telephone encounter Note Like self pay shoes [facility] 02-04-2024 Miscellaneous Notes Like self pay shoes documented in this encounter [facility] 02-04-2024 Hospital Discharg e instructions Patient [...] treatment? Where to find more information [employer]: www.cancer.org [employer] U[employer] Association: www.auanet.org Contact a health care [...] provider. Document Revised: 11/28/2021 Document Reviewed: 11/28/2021 [employer] Patient Education 2022 EarlySense. Follow Up Care 02/12/2023 10:16:19 With:NICOLA RAYMUNDO, Peterson Owens, URL Address: [facility] [address], [place] [address] [phone] When: Unknown [facility] Barb 02-04-2024 Note Patient Education Oncology [...] Where to find more information ? The [employer]: www.cancer.org ? [employer] U[employer] Association: www.auanet.org Contact a health care [...] of the rectum. (more content not included)... [facility] 08-27-2023 Miscellaneous Notes ----- Message from SONNY Denis sent at 08/24/2023 10:25 AM EST ----- EF >45% ok for ASV Noted below in sleep lab encounter and on appt desk for techs for titration appt [facility] 08-27-2023 Telephone encounter Note ----- Message from SONNY Denis sent at 08/24/2023 10:25 AM EST ----- EF >45% ok for ASV [facility] 08-27-2023 Telephone encounter Note Noted below in sleep lab encounter and on appt desk for techs for titration appt [facility] 08-17-2023 Miscellaneous Notes 08/15 received CPAP order 08/16 Scheduled CPAP at [facility] 11/18 Confirmation mailed and emailed [employer] CPAP order and 08/15 Loree notes in epic With TCO2 monitoring. Please obtain baseline in supine position. Starting pressure IPAP25 EPAP10 PS 5 notes CSA on last download plans for Echo prior to titration documented in this encounter [facility] 08-17-2023 Telephone encounter Note 08/15 received CPAP order 08/16 Scheduled CPAP at [facility] 11/18 Confirmation mailed and emailed [employer] CPAP order and 08/15 Loree notes in epic With TCO2 monitoring. Please obtain baseline in supine position. Starting pressure IPAP25 EPAP10 PS 5 notes CSA on last download plans for Echo prior to titration [facility] 08-15-2023 History of Presen t illness Narrative [...] humidifier. Cleaning supplies with soap and water. [place] Sleepiness Scale: Sitting and Reading: (!) Moderate [...] Anemia Unknown Arthritis Benign prostatic hyperplasia Cancer ([facility]) PROSTATE COPD (chronic obstructive pulmonary disease) ([facility]) Unknown Diabetes mellitus type 2, controlled ([facility]) GERD (gastroesophageal reflux disease) History of placement [...] Titration: 03/21/19 PS08/2014 w/ AHI 95 DME: Partender Data card was available for PAP usage [...] Standing Expiration Date: 08/15/2024 Order Specific Question: [facility] required diagnosis: Answer: Personal history of nicotine [...] titration Order Specific Question: Follow Up Answer: [facility] Sleep Medicine to read and [...] not to drive if sleepy, and to pick pulling machine tender if sleepiness occurs while driving. Above plan [...] that have escaped final proofreading. Gregoria Ralph [facility] Office: [phone] 2:57 PM on 08/15/2023 CC: MD Gregoria GONZALEZ APRN-CNP 08/16/23 [id number] documented in this encounter [facility] 08-15-2023 Instructions SONNY Denis - 08/15/2023 1:15 PM EST If you re looking for general health and wellness resources, please visit [email or web address]. documented in this encounter [facility] 08-02-2023 Miscellaneous Notes Received sleep referral from Valeria Mckeon NP. Pt is already an established pt and last saw in 2020- was recommended to follow up with KW. However he was a no show for his last 2 appt with our office. Chat to Tahmina to advise if still to schedule appt. documented in this encounter [facility] 08-02-2023 Telephone encounter Note Received sleep referral from Valeria Mckeon NP. Pt is already an established pt and last saw in 2021- was recommended to follow up with KW. However he was a no show for his last 2 appt with our office. Chat to Tahmina to advise if still to schedule appt. [facility] 07-30-2023 History of Presen t illness Narrative Associated Problem(s): Type 2 diabetes mellitus with diabetic polyneuropathy, with long-term current use of insulin ([facility]) During the appointment today all pertinent [...] Breakfast Lunch Dinner Snacks Drinks Premade meal (Chester and dressing) (Mac and cheese) Protein shake [...] polyneuropathy, with long-term current use of insulin ([facility]) During the appointment today all pertinent [...] (BMI) of 36.0 to 36.9 in adult ([facility]) - Primary Follow up in about [...] UNITS A DAY) LANCETS (ONETOUCH DELICA PLUS [id number]) [facility] use to test BLOOD SUGAR THREE [...] ER 50 mg tablet,extended release 24 hr Layer 7 TechnologiesTOUCH ULTRA TEST STRIP use to test BLOOD [...] mg) before bedtime. documented in this encounter [facility] 04-27-2023 Procedure note [facility] 04-10-2023 Evaluation note Encounter Date Diagnosis Assessment Notes Mar, GERD (gastroesophage al reflux disease) (ICD-10 - K21.9) The patient continues to complain of ongoing regurgitation. He is taking Lansoprazole 30 mg dialyunier & we will increase this to 30 mg bid. Mar, Hemorrhoids (ICD-10 - K64.9) Mar, Alternating constipation and diarrhea (ICD-10 - R19.8) [facility] Other 10-03-2023 Evaluation note* Encounter Date Diagnosis Assessment Notes Treatment Notes Treatment Clinical Notes Mar, Gastroesophageal ref lux disease with esophagitis (ICD-10 - K21.0) [facility] Other 08-28-2023 Hospital Discharge instructions Patient Education [...] similar to normal prostate cells (moderately differentiated). [place] 8, 9, or 10: This indicates that [...] stress of having cancer. General instructions Take temg-tri-npeuhgr and prescription medicines only as told by your health care provider. If you have to go to the hospital, notify your cancer specialist (oncologist). Keep all follow-up visits. This is important. Where to find more information [employer]: www.cancer.org [employer]: www.cancer.net National Cancer [place]: www.cancer.gov Contact a health care provider if: [...] provider. Document Revised: 08/31/2021 Document Reviewed: 08/31/2021 App[employer]ka Patient Education 2022 Early[employer]ense. Follow Up Care 02/03/2022 09:06:37 With:NICOLA RAYMUNDO, Peterson Owens, URL Address: [facility] [address], [place] [id number]- [phone] When: Unknown Comments:1 yr w/ PSA [facility] 04-05-2023 Evaluation note* Encounter Date Diagnosis Assessment Notes Treatment Notes Treatment Clinical Notes Sep, Gastroesophageal ref lux disease with esophagitis (ICD-10 - K21.0) [facility]* Encounter Date Diagnosis Assessment Notes Treatment Notes Treatment Clinical Notes Jul, Diarrhea (ICD-10 - R19.7) Jul, GERD (gastroesophageal reflux disease) (ICD-10 - K21.9) Jul, Hemorrhoids (ICD-10 - K64.9) PATIENT TO START ANUSOL CREAM USE SITZ BATH NEEDED Jul, Dysphagia (ICD-10 - R13.10) [facility] Other 10-28-2022 NotePROCEDURE: XR FOOT RT MIN 3 VIEWS COMPARISON: None. HISTORY: Pain in right foot FINDINGS: BONES:No acute fracture or dislocation. Persistent hammertoe deformities. Moderate hallux valgus. 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 Bulky enthesopathic spurring of the calcaneus SOFT TISSUES:Negative. No visible soft tissue swelling. EFFUSION:None visible. OTHER: Negative. IMPRESSION: Degenerative changes Electronically authenticated by: SORIN SHORE Date: 2022-04-14 18:01[facility]08-19-2022 Hospital Discharge instructions Patient Education 02/03/2022 [...] urethra. Follow these instructions at home: Take tesc-bhf-uqehcrw and prescription medicines only as told by [...] 06/04/2006 Document Revised: 04/29/2019 Document Reviewed: 07/09/2017 Applika Patient Education 2020 Early[employer]ense. Follow Up Care 08/05/2021 10:59:30 With:NICOLA RAYMUNDO, ISRAEL Alberts Address: [facility] [address] , [place] [id number]- When:1 year Comments:W/ TONO [facility] Barb 08-17-2021 NoteHNO ID: [id number] Author: Fawad Diaz MD Service: ? Author Type: Physician Type: Progress Notes Filed: 02/03/2021 9:48 AM Note Text: Radiation Oncology - Follow Up Note PATIENT NAME: Milad Seymour PATIENT DIAGNOSIS: DIAGNOSIS: Prostate adenocarcinoma, initial PSA 14.65, biopsy [place] score 3 + 3 = 6 (grade [...] ASSESSMENT/PLAN:DIAGNOSIS: Prostate adenocarcinoma, initial PSA 14.65, biopsy [place] score 3 + 3 = 6 (grade [...] Fawad Diaz MD cc: Dank Campo MD ([facility]) [address] [place] [address] Dr. Petersen Portions of the above note extracted and edited from previous visit as well as active information included in the EMR.[facility] 11-04-2020 NoteHNO ID: [id number] Author: Fawad Diaz MD Service: ? Author Type: Physician Type: Progress Notes Filed: 11/04/2020 9:44 AM Note Text: Radiation Oncology - Follow Up Note PATIENT NAME: Milad Seymour PATIENT DIAGNOSIS: DIAGNOSIS: Prostate adenocarcinoma, initial PSA 14.65, biopsy [place] score 3 + 3 = 6 (grade [...] ASSESSMENT/PLAN:DIAGNOSIS: Prostate adenocarcinoma, initial PSA 14.65, biopsy [place] score 3 + 3 = 6 (grade [...] cc: Dank Campo MD ([facility]) [address] [place] [address] [facility] Future Appointments Appointment Date:02/12/2023 09:15:00 AM Scheduled Provider:Peterson PETERSEN MD Location:[facility] Appointment Type:URO Office Visit Diagnostic Tests Pending * PSA Total 02/03/22 [facility] evaluation + Plan note Future Appointments Appointment Date:02/12/2023 09:15:00 AM Scheduled Provider:Peterson PETERSEN MD Location:[facility] Appointment Type:URO Office Visit [facility] evaluation + Plan note Future Appointments Appointment Date:02/15/2024 08:15:00 AM Scheduled Provider:Peterson PETERSEN MD Location:[facility] Appointment Type:URO Office Visit Diagnostic Tests Pending * PSA Total 02/12/23 [facility] evaluation + Plan note Future Appointments Appointment Date:02/04/2024 11:30:00 AM Scheduled Provider:Peterson PETERSEN MD Location:[facility] Appointment Type:URO Office Visit [facility] evaluation + Plan note Future Appointments Appointment Date:02/09/2025 08:45:00 AM Scheduled Provider:Peterson PETERSEN MD Location:[facility] Appointment Type:URO Office Visit Diagnostic Tests Pending * PSA Total 02/04/24 [facility] evalipniqe noteNo assessment information available [facility] Work Phone: Evaluiaqhc noteNo InformationNosaint francis [facility] [place] Other Evaluation note* Diagnosis Class 2 severe obesity due to excess calories with serious comorbidity and body mass index (BMI) of 36.0 to 36.9 in adult ([facility])- Primary Type 2 diabetes mellitus with diabetic polyneuropathy, with long-term current use of insulin ([facility]) documented [facility] encounter [facility]* Diagnosis Onset Date Resolution Status H/O rotator cuff surgery acu te [facility] Work Phone: Evaluation note* Diagnosis Personal history of tobacco use, presenting hazards to health- Primary Obstructive sleep apnea syndrome Obstructive sleep apnea (adult) (pediatric) CSA (central sleep apnea) Unspecified sleep apnea documented in this encounter [facility] SystemEvaluation note* Diagnosis Onset Date Resolution Status Diarrhea acute GERD (gastroesophageal reflux disease) acute [facility] Work Phone: Evaluation note* Diagnosis Encounter for other preprocedural examination documented in this encounter [facility] SystemEvaluation note* Diagnosis Preop examination- Primary Unspecified pre-operative examination documented in this encounter [facility]* Diagnosis Internal derangement of left shoulder- Primary documented in this encounter [facility]* Diagnosis Type 2 diabetes mellitus with diabetic polyneuropathy, with long-term current use of insulin ([facility])- Primary Class 2 severe obesity due to excess calories with serious comorbidity and body mass index (BMI) of 35.0 to 35.9 in adult ([facility])- Primary Type 2 diabetes mellitus with diabetic polyneuropathy, with long-term current use of insulin ([facility]) Long-term insulin use ([facility]) Lumbar spondylosis- Primary Lumbosacral spondylosis without myelopathy Benign essential hypertension ([facility]) Essential hypertension, benign Bilateral leg edema Edema Class 2 severe obesity due to excess calories with serious comorbidity and body mass index (BMI) of 36.0 to 36.9 in adult ([facility])- Primary Type 2 diabetes mellitus with diabetic polyneuropathy, with long-term current use of insulin ([facility]) Benign essential hypertension ([facility])- Primary Essential hypertension, benign Lumbar spondylosis Lumbosacral spondylosis without myelopathy Bilateral leg edema Edema Type 2 diabetes mellitus with diabetic polyneuropathy, with long-term current use of insulin ([facility]) Hypercholesteremia ([facility]) Pure hypercholesterolemia Encounter for long-term (current) use of medications Encounter for long-term (current) use of other medications Obesity (BMI 30-39.9) Body mass index [BMI] 36.0-36.9, adult (Z68.36) JARAD (generalized anxiety disorder) ([facility])- Primary Generalized anxiety disorder Benign essential hypertension ([facility]) Essential hypertension, benign Class 2 severe obesity due to excess calories with serious comorbidity and body mass index (BMI) of 35.0 to 35.9 in adult ([facility])- Primary Type 2 diabetes mellitus with diabetic polyneuropathy, with long-term current use of insulin ([facility]) Long-term insulin use ([facility]) Benign essential hypertension ([facility])- Primary Essential hypertension, benign JARAD (generalized anxiety disorder) ([facility]) Generalized anxiety disorder Bilateral leg edema Edema Lumbar spondylosis Lumbosacral spondylosis without myelopathy Benign essential hypertension ([facility])- Primary Essential hypertension, benign JARAD (generalized anxiety disorder) ([facility]) Generalized anxiety disorder Lumbar spondylosis Lumbosacral spondylosis without myelopathy Bilateral leg edema Edema Prostate cancer ([facility]) Malignant neoplasm of prostate Type 2 diabetes mellitus with hyperglycemia, with long-term current use of insulin ([facility]) Class 2 severe obesity due to excess calories with serious comorbidity and body mass index (BMI) of 35.0 to 35.9 in adult ([facility])- Primary Type 2 diabetes mellitus with hyperglycemia, with long-term current use of insulin ([facility]) Type 2 diabetes mellitus with diabetic polyneuropathy, with long-term current use of insulin ([facility]) Long-term insulin use ([facility]) Type 2 diabetes mellitus with stage 3a chronic kidney disease, with long-term current use of insulin ([facility]) ([facility]) Pre-op examination- Primary Preop examination Unspecified pre-operative examination documented in this encounter [facility]* Diagnosis Type 2 diabetes mellitus with diabetic polyneuropathy, with long-term current use of insulin ([facility])- Primary Class 2 severe obesity due to excess calories with serious comorbidity and body mass index (BMI) of 35.0 to 35.9 in adult ([facility])- Primary Type 2 diabetes mellitus with diabetic polyneuropathy, with long-term current use of insulin ([facility]) Long-term insulin use ([facility]) Lumbar spondylosis- Primary Lumbosacral spondylosis without myelopathy Benign essential hypertension ([facility]) Essential hypertension, benign Bilateral leg edema Edema Class 2 severe obesity due to excess calories with serious comorbidity and body mass index (BMI) of 36.0 to 36.9 in adult ([facility])- Primary Type 2 diabetes mellitus with diabetic polyneuropathy, with long-term current use of insulin ([facility]/HCC) Benign essential hypertension ([facility]/HCC)- Primary Essential hypertension, benign Lumbar spondylosis Lumbosacral spondylosis without myelopathy Bilateral leg edema Edema Type 2 diabetes mellitus with diabetic polyneuropathy, with long-term current use of insulin ([facility]/HCC) Hypercholesteremia ([facility]) Pure hypercholesterolemia Encounter for long-term (current) use of medications Encounter for long-term (current) use of other medications Obesity (BMI 30-39.9) Body mass index [BMI] 36.0-36.9, adult (Z68.36) JARAD (generalized anxiety disorder) ([facility])- Primary Generalized anxiety disorder Benign essential hypertension ([facility]) Essential hypertension, benign Class 2 severe obesity due to excess calories with serious comorbidity and body mass index (BMI) of 35.0 to 35.9 in adult ([facility])- Primary Type 2 diabetes mellitus with diabetic polyneuropathy, with long-term current use of insulin ([facility]) Long-term insulin use ([facility]) Benign essential hypertension ([facility]/HCC)- Primary Essential hypertension, benign JARAD (generalized anxiety disorder) ([facility]) Generalized anxiety disorder Bilateral leg edema Edema Lumbar spondylosis Lumbosacral spondylosis without myelopathy Benign essential hypertension (CMS/HCC)- Primary Essential hypertension, benign JARAD (generalized anxiety disorder) ([facility]) Generalized anxiety disorder Lumbar spondylosis Lumbosacral spondylosis without myelopathy Bilateral leg edema Edema Prostate cancer ([facility]) Malignant neoplasm of prostate Type 2 diabetes mellitus with hyperglycemia, with long-term current use of insulin ([facility]) Class 2 severe obesity due to excess calories with serious comorbidity and body mass index (BMI) of 35.0 to 35.9 in adult ([facility])- Primary Type 2 diabetes mellitus with hyperglycemia, with long-term current use of insulin ([facility]) Type 2 diabetes mellitus with diabetic polyneuropathy, with long-term current use of insulin ([facility]) Long-term insulin use ([facility]) Type 2 diabetes mellitus with stage 3a chronic kidney disease, with long-term current use of insulin (HCC) ([facility]) Essential (primary) hypertension ([facility]) Unspecified essential hypertension documented in [facility] encounter [facility]* Diagnosis Type 2 diabetes mellitus with diabetic polyneuropathy, with long-term current use of insulin ([facility])- Primary Class 2 severe obesity due to excess calories with serious comorbidity and body mass index (BMI) of 35.0 to 35.9 in adult ([facility])- Primary Type 2 diabetes mellitus with diabetic polyneuropathy, with long-term current use of insulin ([facility]) Long-term insulin use ([facility]) Lumbar spondylosis- Primary Lumbosacral spondylosis without myelopathy Benign essential hypertension ([facility]) Essential hypertension, benign Bilateral leg edema Edema Class 2 severe obesity due to excess calories with serious comorbidity and body mass index (BMI) of 36.0 to 36.9 in adult ([facility])- Primary Type 2 diabetes mellitus with diabetic polyneuropathy, with long-term current use of insulin ([facility]) Benign essential hypertension ([facility])- Primary Essential hypertension, benign Lumbar spondylosis Lumbosacral spondylosis without myelopathy Bilateral leg edema Edema Type 2 diabetes mellitus with diabetic polyneuropathy, with long-term current use of insulin ([facility]) Hypercholesteremia ([facility]) Pure hypercholesterolemia Encounter for long-term (current) use of medications Encounter for long-term (current) use of other medications Obesity (BMI 30-39.9) Body mass index [BMI] 36.0-36.9, adult (Z68.36) JARAD (generalized anxiety disorder) ([facility])- Primary Generalized anxiety disorder Benign essential hypertension ([facility]) Essential hypertension, benign Class 2 severe obesity due to excess calories with serious comorbidity and body mass index (BMI) of 35.0 to 35.9 in adult ([facility])- Primary Type 2 diabetes mellitus with diabetic polyneuropathy, with long-term current use of insulin ([facility]) Long-term insulin use ([facility]) Benign essential hypertension ([facility])- Primary Essential hypertension, benign JARAD (generalized anxiety disorder) ([facility]) Generalized anxiety disorder Bilateral leg edema Edema Lumbar spondylosis Lumbosacral spondylosis without myelopathy Benign essential hypertension ([facility])- Primary Essential hypertension, benign JARAD (generalized anxiety disorder) ([facility]) Generalized anxiety disorder Lumbar spondylosis Lumbosacral spondylosis without myelopathy Bilateral leg edema Edema Prostate cancer ([facility]) Malignant neoplasm of prostate Type 2 diabetes mellitus with hyperglycemia, with long-term current use of insulin ([facility]) Class 2 severe obesity due to excess calories with serious comorbidity and body mass index (BMI) of 35.0 to 35.9 in adult ([facility])- Primary Type 2 diabetes mellitus with hyperglycemia, with long-term current use of insulin ([facility]) Type 2 diabetes mellitus with diabetic polyneuropathy, with long-term current use of insulin ([facility]) Long-term insulin use ([facility]) Type 2 diabetes mellitus with stage 3a chronic kidney disease, with long-term current use of insulin (HCC) ([facility]) Internal derangement of left shoulder- Primary Type 2 diabetes mellitus with diabetic polyneuropathy, with long-term current use of insulin ([facility]) documented in this encounter [facility]* Diagnosis Type 2 diabetes mellitus with diabetic polyneuropathy, with long-term current use of insulin ([facility])- Primary Class 2 severe obesity due to excess calories with serious comorbidity and body mass index (BMI) of 35.0 to 35.9 in adult ([facility])- Primary Type 2 diabetes mellitus with diabetic polyneuropathy, with long-term current use of insulin ([facility]) Long-term insulin use ([facility]) Lumbar spondylosis- Primary Lumbosacral spondylosis without myelopathy Benign essential hypertension ([facility]) Essential hypertension, benign Bilateral leg edema Edema Class 2 severe obesity due to excess calories with serious comorbidity and body mass index (BMI) of 36.0 to 36.9 in adult ([facility])- Primary Type 2 diabetes mellitus with diabetic polyneuropathy, with long-term current use of insulin ([facility]) Benign essential hypertension ([facility])- Primary Essential hypertension, benign Lumbar spondylosis Lumbosacral spondylosis without myelopathy Bilateral leg edema Edema Type 2 diabetes mellitus with diabetic polyneuropathy, with long-term current use of insulin ([facility]) Hypercholesteremia ([facility]) Pure hypercholesterolemia Encounter for long-term (current) use of medications Encounter for long-term (current) use of other medications Obesity (BMI 30-39.9) Body mass index [BMI] 36.0-36.9, adult (Z68.36) JARAD (generalized anxiety disorder) ([facility])- Primary Generalized anxiety disorder Benign essential hypertension ([facility]/HCC) Essential hypertension, benign Class 2 severe obesity due to excess calories with serious comorbidity and body mass index (BMI) of 35.0 to 35.9 in adult ([facility])- Primary Type 2 diabetes mellitus with diabetic polyneuropathy, with long-term current use of insulin (CMS/HCC) Long-term insulin use (CMS/HCC) Benign essential hypertension (CMS/HCC)- Primary Essential hypertension, benign JARAD (generalized anxiety disorder) (CMS/HCC) Generalized anxiety disorder Bilateral leg edema Edema Lumbar spondylosis Lumbosacral spondylosis without myelopathy Benign essential hypertension (CMS/HCC)- Primary Essential hypertension, benign JARAD (generalized anxiety disorder) (CMS/HCC) Generalized anxiety disorder Lumbar spondylosis Lumbosacral spondylosis without myelopathy Bilateral leg edema Edema Prostate cancer ([facility]) Malignant neoplasm of prostate Type 2 diabetes mellitus with hyperglycemia, with long-term current use of insulin (CMS/HCC) Class 2 severe obesity due to excess calories with serious comorbidity and body mass index (BMI) of 35.0 to 35.9 in adult ([facility])- Primary Type 2 diabetes mellitus with hyperglycemia, with long-term current use of insulin ([facility]) Type 2 diabetes mellitus with diabetic polyneuropathy, with long-term current use of insulin ([facility]) Long-term insulin use ([facility]) Type 2 diabetes mellitus with stage 3a chronic kidney disease, with long-term current use of insulin (HCC) ([facility]) Class 2 severe obesity due to excess calories with serious comorbidity and body mass index (BMI) of 35.0 to 35.9 in adult ([facility])- Primary Type 2 diabetes mellitus with diabetic polyneuropathy, with long-term current use of insulin ([facility]) Type 2 diabetes mellitus with stage 3a chronic kidney disease, with long-term current use of insulin (HCC) ([facility]) Long-term insulin use ([facility]) documented in [facility] encounter [facility]* Diagnosis Type 2 diabetes mellitus with diabetic polyneuropathy, with long-term current use of insulin ([facility])- Primary Class 2 severe obesity due to excess calories with serious comorbidity and body mass index (BMI) of 35.0 to 35.9 in adult ([facility])- Primary Type 2 diabetes mellitus with diabetic polyneuropathy, with long-term current use of insulin ([facility]/HCC) Long-term insulin use ([facility]) Lumbar spondylosis- Primary Lumbosacral spondylosis without myelopathy Benign essential hypertension ([facility]/HCC) Essential hypertension, benign Bilateral leg edema Edema Class 2 severe obesity due to excess calories with serious comorbidity and body mass index (BMI) of 36.0 to 36.9 in adult ([facility])- Primary Type 2 diabetes mellitus with diabetic polyneuropathy, with long-term current use of insulin ([facility]) Benign essential hypertension ([facility])- Primary Essential hypertension, benign Lumbar spondylosis Lumbosacral spondylosis without myelopathy Bilateral leg edema Edema Type 2 diabetes mellitus with diabetic polyneuropathy, with long-term current use of insulin ([facility]) Hypercholesteremia ([facility]) Pure hypercholesterolemia Encounter for long-term (current) use of medications Encounter for long-term (current) use of other medications Obesity (BMI 30-39.9) Body mass index [BMI] 36.0-36.9, adult (Z68.36) JARAD (generalized anxiety disorder) ([facility])- Primary Generalized anxiety disorder Benign essential hypertension ([facility]) Essential hypertension, benign Class 2 severe obesity due to excess calories with serious comorbidity and body mass index (BMI) of 35.0 to 35.9 in adult [place] Primary Type 2 diabetes mellitus with diabetic polyneuropathy, with long-term current use of insulin ([facility]) Long-term insulin use ([facility]) Benign essential hypertension ([facility])- Primary Essential hypertension, benign JARAD (generalized anxiety disorder) ([facility]) Generalized anxiety disorder Bilateral leg edema Edema Lumbar spondylosis Lumbosacral spondylosis without myelopathy Benign essential hypertension ([facility])- Primary Essential hypertension, benign JARAD (generalized anxiety disorder) ([facility]) Generalized anxiety disorder Lumbar spondylosis Lumbosacral spondylosis without myelopathy Bilateral leg edema Edema Prostate cancer ([facility]) Malignant neoplasm of prostate Type 2 diabetes mellitus with hyperglycemia, with long-term current use of insulin ([facility]) Class 2 severe obesity due to excess calories with serious comorbidity and body mass index (BMI) of 35.0 to 35.9 in adult [place] Primary Type 2 diabetes mellitus with hyperglycemia, with long-term current use of insulin ([facility]) Type 2 diabetes mellitus with diabetic polyneuropathy, with long-term current use of insulin ([facility]) Long-term insulin use ([facility]) Type 2 diabetes mellitus with stage 3a chronic kidney disease, with long-term current use of insulin ([facility]) ([facility]) Class 2 severe obesity due to excess calories with serious comorbidity and body mass index (BMI) of 35.0 to 35.9 in adult ([facility])- Primary Type 2 diabetes mellitus with diabetic polyneuropathy, with long-term current use of insulin ([facility]) Type 2 diabetes mellitus with stage 3a chronic kidney disease, with long-term current use of insulin ([facility]) ([facility]) Long-term insulin use ([facility]) S/P arthroscopy of left shoulder- Primary documented in this encounter [facility]* Diagnosis Type 2 diabetes mellitus with diabetic polyneuropathy, with long-term current use of insulin ([facility])- Primary Class 2 severe obesity due to excess calories with serious comorbidity and body mass index (BMI) of 35.0 to 35.9 in adult ([facility])- Primary Type 2 diabetes mellitus with diabetic polyneuropathy, with long-term current use of insulin ([facility]) Long-term insulin use ([facility]) Lumbar spondylosis- Primary Lumbosacral spondylosis without myelopathy Benign essential hypertension ([facility]) Essential hypertension, benign Bilateral leg edema Edema Class 2 severe obesity due to excess calories with serious comorbidity and body mass index (BMI) of 36.0 to 36.9 in adult ([facility])- Primary Type 2 diabetes mellitus with diabetic polyneuropathy, with long-term current use of insulin ([facility]) Benign essential hypertension ([facility])- Primary Essential hypertension, benign Lumbar spondylosis Lumbosacral spondylosis without myelopathy Bilateral leg edema Edema Type 2 diabetes mellitus with diabetic polyneuropathy, with long-term current use of insulin ([facility] Hypercholesteremia ([facility]) Pure hypercholesterolemia Encounter for long-term (current) use of medications Encounter for long-term (current) use of other medications Obesity (BMI 30-39.9) Body mass index [BMI] 36.0-36.9, adult (Z68.36) JARAD (generalized anxiety disorder) ([facility])- Primary Generalized anxiety disorder Benign essential hypertension ([facility]) Essential hypertension, benign Class 2 severe obesity due to excess calories with serious comorbidity and body mass index (BMI) of 35.0 to 35.9 in adult ([facility])- Primary Type 2 diabetes mellitus with diabetic polyneuropathy, with long-term current use of insulin ([facility]) Long-term insulin use ([facility]) Benign essential hypertension ([facility])- Primary Essential hypertension, benign JARAD (generalized anxiety disorder) ([facility]) Generalized anxiety disorder Bilateral leg edema Edema Lumbar spondylosis Lumbosacral spondylosis without myelopathy Benign essential hypertension ([facility])- Primary Essential hypertension, benign JARAD (generalized anxiety disorder) ([facility]) Generalized anxiety disorder Lumbar spondylosis Lumbosacral spondylosis without myelopathy Bilateral leg edema Edema Prostate cancer ([facility]) Malignant neoplasm of prostate Type 2 diabetes mellitus with hyperglycemia, with long-term current use of insulin ([facility]) Class 2 severe obesity due to excess calories with serious comorbidity and body mass index (BMI) of 35.0 to 35.9 in adult ([facility])- Primary Type 2 diabetes mellitus with hyperglycemia, with long-term current use of insulin ([facility]) Type 2 diabetes mellitus with diabetic polyneuropathy, with long-term current use of insulin ([facility]) Long-term insulin use ([facility]) Type 2 diabetes mellitus with stage 3a chronic kidney disease, with long-term current use of insulin ([facility]) [place] Class 2 severe obesity due to excess calories with serious comorbidity and body mass index (BMI) of 35.0 to 35.9 in adult ([facility])- Primary Type 2 diabetes mellitus with diabetic polyneuropathy, with long-term current use of insulin ([facility]) Type 2 diabetes mellitus with stage 3a chronic kidney disease, with long-term current use of insulin ([facility]) ([facility] Long[facility]term insulin use ([facility]) S/P arthroscopy of left shoulder- Primary documented in this encounter [facility]* Diagnosis Type 2 diabetes mellitus with diabetic polyneuropathy, with long-term current use of insulin ([facility])- Primary Class 2 severe obesity due to excess calories with serious comorbidity and body mass index (BMI) of 35.0 to 35.9 in adult ([facility])- Primary Type 2 diabetes mellitus with diabetic polyneuropathy, with long-term current use of insulin ([facility]) Long-term insulin use [place] Lumbar spondylosis- Primary Lumbosacral spondylosis without myelopathy Benign essential hypertension ([facility]) Essential hypertension, benign Bilateral leg edema Edema Class 2 severe obesity due to excess calories with serious comorbidity and body mass index (BMI) of 36.0 to 36.9 in adult ([facility])- Primary Type 2 diabetes mellitus with diabetic polyneuropathy, with long-term current use of insulin ([facility]) Benign essential hypertension ([facility])- Primary Essential hypertension, benign Lumbar spondylosis Lumbosacral spondylosis without myelopathy Bilateral leg edema Edema Type 2 diabetes mellitus with diabetic polyneuropathy, with long-term current use of insulin ([facility]) Hypercholesteremia ([facility]) Pure hypercholesterolemia Encounter for long-term (current) use of medications Encounter for long-term (current) use of other medications Obesity (BMI 30-39.9) Body mass index [BMI] 36.0-36.9, adult (Z68.36) JARAD (generalized anxiety disorder) ([facility])- Primary Generalized anxiety disorder Benign essential hypertension ([facility]) Essential hypertension, benign Class 2 severe obesity due to excess calories with serious comorbidity and body mass index (BMI) of 35.0 to 35.9 in adult ([facility] Primary Type 2 diabetes mellitus with diabetic polyneuropathy, with long-term current use of insulin ([facility]) Long-term insulin use ([facility]) Benign essential hypertension ([facility])- Primary Essential hypertension, benign JARAD (generalized anxiety disorder) ([facility]) Generalized anxiety disorder Bilateral leg edema Edema Lumbar spondylosis Lumbosacral spondylosis without myelopathy Benign essential hypertension ([facility])- Primary Essential hypertension, benign JARAD (generalized anxiety disorder) ([facility]) Generalized anxiety disorder Lumbar spondylosis Lumbosacral spondylosis without myelopathy Bilateral leg edema Edema Prostate cancer ([facility]) Malignant neoplasm of prostate Type 2 diabetes mellitus with hyperglycemia, with long-term current use of insulin ([facility]) Class 2 severe obesity due to excess calories with serious comorbidity and body mass index (BMI) of 35.0 to 35.9 in adult [place] Primary Type 2 diabetes mellitus with hyperglycemia, with long-term current use of insulin ([facility]) Type 2 diabetes mellitus with diabetic polyneuropathy, with long-term current use of insulin ([facility]) Long-term insulin use ([facility]) Type 2 diabetes mellitus with stage 3a chronic kidney disease, with long-term current use of insulin ([facility]) ([facility]) Class 2 severe obesity due to excess calories with serious comorbidity and body mass index (BMI) of 35.0 to 35.9 in adult ([facility])- Primary Type 2 diabetes mellitus with diabetic polyneuropathy, with long-term current use of insulin ([facility]) Type 2 diabetes mellitus with stage 3a chronic kidney disease, with long-term current use of insulin (HCC) ([facility]) Long-term insulin use ([facility]) S/P arthroscopy of left shoulder- Primary documented in this encounter [facility]* Diagnosis Type 2 diabetes mellitus with diabetic polyneuropathy, with long-term current use of insulin ([facility])- Primary Class 2 severe obesity due to excess calories with serious comorbidity and body mass index (BMI) of 35.0 to 35.9 in adult ([facility])- Primary Type 2 diabetes mellitus with diabetic polyneuropathy, with long-term current use of insulin ([facility]) Long-term insulin use ([facility]) Lumbar spondylosis- Primary Lumbosacral spondylosis without myelopathy Benign essential hypertension ([facility]) Essential hypertension, benign Bilateral leg edema Edema Class 2 severe obesity due to excess calories with serious comorbidity and body mass index (BMI) of 36.0 to 36.9 in adult ([facility])- Primary Type 2 diabetes mellitus with diabetic polyneuropathy, with long-term current use of insulin ([facility]) Benign essential hypertension ([facility])- Primary Essential hypertension, benign Lumbar spondylosis Lumbosacral spondylosis without myelopathy Bilateral leg edema Edema Type 2 diabetes mellitus with diabetic polyneuropathy, with long-term current use of insulin ([facility]) Hypercholesteremia ([facility]) Pure hypercholesterolemia Encounter for long-term (current) use of medications Encounter for long-term (current) use of other medications Obesity (BMI 30-39.9) Body mass index [BMI] 36.0-36.9, adult (Z68.36) JARAD (generalized anxiety disorder) ([facility])- Primary Generalized anxiety disorder Benign essential hypertension ([facility]) Essential hypertension, benign Class 2 severe obesity due to excess calories with serious comorbidity and body mass index (BMI) of 35.0 to 35.9 in adult [place] Primary Type 2 diabetes mellitus with diabetic polyneuropathy, with long-term current use of insulin ([facility]) Long[facility]term insulin use [place] Benign essential hypertension ([facility])- Primary Essential hypertension, benign JARAD (generalized anxiety disorder) ([facility]) Generalized anxiety disorder Bilateral leg edema Edema Lumbar spondylosis Lumbosacral spondylosis without myelopathy Benign essential hypertension ([facility])- Primary Essential hypertension, benign JARAD (generalized anxiety disorder) ([facility]) Generalized anxiety disorder Lumbar spondylosis Lumbosacral spondylosis without myelopathy Bilateral leg edema Edema Prostate cancer ([facility]) Malignant neoplasm of prostate Type 2 diabetes mellitus with hyperglycemia, with long-term current use of insulin ([facility] Class 2 severe obesity due to excess calories with serious comorbidity and body mass index (BMI) of 35.0 to 35.9 in adult ([facility] Primary Type 2 diabetes mellitus with hyperglycemia, with long-term current use of insulin ([facility] Type 2 diabetes mellitus with diabetic polyneuropathy, with long-term current use of insulin ([facility] Long-term insulin use [place] Type 2 diabetes mellitus with stage 3a chronic kidney disease, with long-term current use of insulin ([facility]) ([facility] Class 2 severe obesity due to excess calories with serious comorbidity and body mass index (BMI) of 35.0 to 35.9 in adult ([facility] Primary Type 2 diabetes mellitus with diabetic polyneuropathy, with long-term current use of insulin ([facility] Type 2 diabetes mellitus with stage 3a chronic kidney disease, with long-term current use of insulin ([facility]) ([facility] Long-term insulin use ([facility] S/P arthroscopy of left shoulder- Primary Left shoulder pain, unspecified chronicity documented in this encounter [facility]* Diagnosis Internal derangement of left shoulder- Primary Acute pain of left shoulder documented in this encounter [facility]* Diagnosis Type 2 diabetes mellitus with diabetic polyneuropathy, with long-term current use of insulin ([facility])- Primary Class 2 severe obesity due to excess calories with serious comorbidity and body mass index (BMI) of 35.0 to 35.9 in adult [place] [place] Primary Type 2 diabetes mellitus with diabetic polyneuropathy, with long-term current use of insulin ([facility]) Long-term insulin use ([facility]) Lumbar spondylosis- Primary Lumbosacral spondylosis without myelopathy Benign essential hypertension ([facility]) Essential hypertension, benign Bilateral leg edema Edema Class 2 severe obesity due to excess calories with serious comorbidity and body mass index (BMI) of 36.0 to 36.9 in adult [place] [place] Primary Type 2 diabetes mellitus with diabetic polyneuropathy, with long-term current use of insulin ([facility]) Benign essential hypertension ([facility])- Primary Essential hypertension, benign Lumbar spondylosis Lumbosacral spondylosis without myelopathy Bilateral leg edema Edema Type 2 diabetes mellitus with diabetic polyneuropathy, with long-term current use of insulin ([facility] Hypercholesteremia [facility] Pure hypercholesterolemia Encounter for long-term (current) use of medications Encounter for long-term (current) use of other medications Obesity (BMI 30-39.9) Body mass index [BMI] 36.0-36.9, adult (Z68.36) JARAD (generalized anxiety disorder) ([facility])- Primary Generalized anxiety disorder Benign essential hypertension ([facility]) Essential hypertension, benign Class 2 severe obesity due to excess calories with serious comorbidity and body mass index (BMI) of 35.0 to 35.9 in adult [place] [place] Primary Type 2 diabetes mellitus with diabetic polyneuropathy, with long-term current use of insulin [facility] Long[facility]term insulin use [facility] Benign essential hypertension ([facility])- Primary Essential hypertension, benign JARAD (generalized anxiety disorder) ([facility]) Generalized anxiety disorder Bilateral leg edema Edema Lumbar spondylosis Lumbosacral spondylosis without myelopathy Benign essential hypertension ([facility])- Primary Essential hypertension, benign JARAD (generalized anxiety disorder) ([facility]) Generalized anxiety disorder Lumbar spondylosis Lumbosacral spondylosis without myelopathy Bilateral leg edema Edema Prostate cancer ([facility]) Malignant neoplasm of prostate Type 2 diabetes mellitus with hyperglycemia, with long-term current use of insulin ([facility]) Class 2 severe obesity due to excess calories with serious comorbidity and body mass index (BMI) of 35.0 to 35.9 in adult [place] Primary Type 2 diabetes mellitus with hyperglycemia, with long-term current use of insulin (CMS/HCC) Type 2 diabetes mellitus with diabetic polyneuropathy, with long-term current use of insulin (CMS/HCC) Long-term insulin use (CMS/HCC) Type 2 diabetes mellitus with stage 3a chronic kidney disease, with long-term current use of insulin (HCC) (CMS/HCC) Class 2 severe obesity due to excess calories with serious comorbidity and body mass index (BMI) of 35.0 to 35.9 in adult ([facility])- Primary Type 2 diabetes mellitus with diabetic polyneuropathy, with long-term current use of insulin (CMS/HCC) Type 2 diabetes mellitus with stage 3a chronic kidney disease, with long-term current use of insulin (HCC) (CMS/HCC) Long-term insulin use (CMS/HCC) Benign essential hypertension (CMS/[facility])- Primary Essential hypertension, benign JARAD (generalized anxiety disorder) (CMS/[facility]) Generalized anxiety disorder Lumbar spondylosis Lumbosacral spondylosis without myelopathy Type 2 diabetes mellitus with diabetic polyneuropathy, with long-term current use of insulin (CMS/HCC) Type 2 diabetes mellitus with stage 3b chronic kidney disease, with long-term current use of insulin (HCC) ([facility]/HCC) documented in this encounter [facility]* Diagnosis Type 2 diabetes mellitus with diabetic polyneuropathy, with long-term current use of insulin (CMS/HCC)- Primary Class 2 severe obesity due to excess calories with serious comorbidity and body mass index (BMI) of 35.0 to 35.9 in adult ([facility])- Primary Type 2 diabetes mellitus with diabetic polyneuropathy, with long-term current use of insulin (CMS/HCC) Long-term insulin use ([facility]/HCC) Lumbar spondylosis- Primary Lumbosacral spondylosis without myelopathy Benign essential hypertension (CMS/HCC) Essential hypertension, benign Bilateral leg edema Edema Class 2 severe obesity due to excess calories with serious comorbidity and body mass index (BMI) of 36.0 to 36.9 in adult ([facility])- Primary Type 2 diabetes mellitus with diabetic polyneuropathy, with long-term current use of insulin (CMS/HCC) Benign essential hypertension (CMS/HCC)- Primary Essential hypertension, benign Lumbar spondylosis Lumbosacral spondylosis without myelopathy Bilateral leg edema Edema Type 2 diabetes mellitus with diabetic polyneuropathy, with long-term current use of insulin (CMS/HCC) Hypercholesteremia ([facility]) Pure hypercholesterolemia Encounter for long-term (current) use of medications Encounter for long-term (current) use of other medications Obesity (BMI 30-39.9) Body mass index [BMI] 36.0-36.9, adult (Z68.36) JARAD (generalized anxiety disorder) ([facility])- Primary Generalized anxiety disorder Benign essential hypertension ([facility]) Essential hypertension, benign Class 2 severe obesity due to excess calories with serious comorbidity and body mass index (BMI) of 35.0 to 35.9 in adult ([facility])- Primary Type 2 diabetes mellitus with diabetic polyneuropathy, with long-term current use of insulin ([facility]) Long-term insulin use ([facility]) Benign essential hypertension ([facility])- Primary Essential hypertension, benign JARAD (generalized anxiety disorder) ([facility]) Generalized anxiety disorder Bilateral leg edema Edema Lumbar spondylosis Lumbosacral spondylosis without myelopathy Benign essential hypertension ([facility])- Primary Essential hypertension, benign JARAD (generalized anxiety disorder) ([facility]) Generalized anxiety disorder Lumbar spondylosis Lumbosacral spondylosis without myelopathy Bilateral leg edema Edema Prostate cancer ([facility]) Malignant neoplasm of prostate Type 2 diabetes mellitus with hyperglycemia, with long-term current use of insulin ([facility]) Class 2 severe obesity due to excess calories with serious comorbidity and body mass index (BMI) of 35.0 to 35.9 in adult ([facility])- Primary Type 2 diabetes mellitus with hyperglycemia, with long-term current use of insulin ([facility]) Type 2 diabetes mellitus with diabetic polyneuropathy, with long-term current use of insulin ([facility]) Long-term insulin use ([facility]) Type 2 diabetes mellitus with stage 3a chronic kidney disease, with long-term current use of insulin ([facility]) ([facility]) Class 2 severe obesity due to excess calories with serious comorbidity and body mass index (BMI) of 35.0 to 35.9 in adult ([facility])- Primary Type 2 diabetes mellitus with diabetic polyneuropathy, with long-term current use of insulin ([facility]) Type 2 diabetes mellitus with stage 3a chronic kidney disease, with long-term current use of insulin (HCC) ([facility]) Long-term insulin use ([facility]) Benign essential hypertension ([facility])- Primary Essential hypertension, benign JARAD (generalized anxiety disorder) ([facility]) Generalized anxiety disorder Lumbar spondylosis Lumbosacral spondylosis without myelopathy Type 2 diabetes mellitus with diabetic polyneuropathy, with long-term current use of insulin ([facility]) Type 2 diabetes mellitus with stage 3b chronic kidney disease, with long-term current use of insulin ([facility]) ([facility]) Left shoulder pain, unspecified chronicity- Primary S/P arthroscopy of left shoulder documented in this encounter [facility]* Diagnosis Type 2 diabetes mellitus with diabetic polyneuropathy, with long-term current use of insulin ([facility])- Primary Class 2 severe obesity due to excess calories with serious comorbidity and body mass index (BMI) of 35.0 to 35.9 in adult ([facility])- Primary Type 2 diabetes mellitus with diabetic polyneuropathy, with long-term current use of insulin ([facility]) Long-term insulin use ([facility]) Lumbar spondylosis- Primary Lumbosacral spondylosis without myelopathy Benign essential hypertension ([facility]) Essential hypertension, benign Bilateral leg edema Edema Class 2 severe obesity due to excess calories with serious comorbidity and body mass index (BMI) of 36.0 to 36.9 in adult ([facility])- Primary Type 2 diabetes mellitus with diabetic polyneuropathy, with long-term current use of insulin ([facility]) Benign essential hypertension ([facility])- Primary Essential hypertension, benign Lumbar spondylosis Lumbosacral spondylosis without myelopathy Bilateral leg edema Edema Type 2 diabetes mellitus with diabetic polyneuropathy, with long-term current use of insulin ([facility] Hypercholesteremia ([facility]) Pure hypercholesterolemia Encounter for long-term (current) use of medications Encounter for long-term (current) use of other medications Obesity (BMI 30-39.9) Body mass index [BMI] 36.0-36.9, adult (Z68.36) JARAD (generalized anxiety disorder) ([facility])- Primary Generalized anxiety disorder Benign essential hypertension ([facility]) Essential hypertension, benign Class 2 severe obesity due to excess calories with serious comorbidity and body mass index (BMI) of 35.0 to 35.9 in adult ([facility])- Primary Type 2 diabetes mellitus with diabetic polyneuropathy, with long-term current use of insulin ([facility]) Long-term insulin use ([facility]) Benign essential hypertension (CMS/HCC)- Primary Essential hypertension, benign JARAD (generalized anxiety disorder) (CMS/HCC) Generalized anxiety disorder Bilateral leg edema Edema Lumbar spondylosis Lumbosacral spondylosis without myelopathy Benign essential hypertension (CMS/HCC)- Primary Essential hypertension, benign JARAD (generalized anxiety disorder) (CMS/HCC) Generalized anxiety disorder Lumbar spondylosis Lumbosacral spondylosis without myelopathy Bilateral leg edema Edema Prostate cancer ([facility]/HCC) Malignant neoplasm of prostate Type 2 diabetes mellitus with hyperglycemia, with long-term current use of insulin ([facility]) Class 2 severe obesity due to excess calories with serious comorbidity and body mass index (BMI) of 35.0 to 35.9 in adult ([facility])- Primary Type 2 diabetes mellitus with hyperglycemia, with long-term current use of insulin ([facility]) Type 2 diabetes mellitus with diabetic polyneuropathy, with long-term current use of insulin ([facility]/HCC) Long-term insulin use ([facility]) Type 2 diabetes mellitus with stage 3a chronic kidney disease, with long-term current use of insulin (HCC) ([facility]) Class 2 severe obesity due to excess calories with serious comorbidity and body mass index (BMI) of 35.0 to 35.9 in adult ([facility])- Primary Type 2 diabetes mellitus with diabetic polyneuropathy, with long-term current use of insulin ([facility]) Type 2 diabetes mellitus with stage 3a chronic kidney disease, with long-term current use of insulin (HCC) ([facility]) Long-term insulin use ([facility]) Benign essential hypertension (CMS/HCC)- Primary Essential hypertension, benign JARAD (generalized anxiety disorder) ([facility]) Generalized anxiety disorder Lumbar spondylosis Lumbosacral spondylosis without myelopathy Type 2 diabetes mellitus with diabetic polyneuropathy, with long-term current use of insulin ([facility]/HCC) Type 2 diabetes mellitus with stage 3b chronic kidney disease, with long-term current use of insulin (HCC) ([facility]) Contusion of left foot, initial encounter- Primary Pain in left foot Pain in soft tissues of limb Diabetic polyneuropathy associated with type 2 diabetes mellitus ([facility]/HCC) Encounter for long-term (current) use of insulin ([facility]/HCC) Encounter for long-term (current) use of insulin documented in this encounter [facility]* Diagnosis Type 2 diabetes mellitus with diabetic polyneuropathy, with long-term current use of insulin ([facility])- Primary Class 2 severe obesity due to excess calories with serious comorbidity and body mass index (BMI) of 35.0 to 35.9 in adult [place] Primary Type 2 diabetes mellitus with diabetic polyneuropathy, with long-term current use of insulin ([facility]) Long-term insulin use [facility] Lumbar spondylosis- Primary Lumbosacral spondylosis without myelopathy Benign essential hypertension ([facility]) Essential hypertension, benign Bilateral leg edema Edema Class 2 severe obesity due to excess calories with serious comorbidity and body mass index (BMI) of 36.0 to 36.9 in adult [place] [place] Primary Type 2 diabetes mellitus with diabetic polyneuropathy, with long-term current use of insulin [facility]) Benign essential hypertension ([facility])- Primary Essential hypertension, benign Lumbar spondylosis Lumbosacral spondylosis without myelopathy Bilateral leg edema Edema Type 2 diabetes mellitus with diabetic polyneuropathy, with long-term current use of insulin [facility] [place]cholesteremia [place] Pure hypercholesterolemia Encounter for long-term (current) use of medications Encounter for long-term (current) use of other medications Obesity (BMI 30-39.9) Body mass index [BMI] 36.0-36.9, adult (Z68.36) JARAD (generalized anxiety disorder) ([facility])- Primary Generalized anxiety disorder Benign essential hypertension ([facility]) Essential hypertension, benign Class 2 severe obesity due to excess calories with serious comorbidity and body mass index (BMI) of 35.0 to 35.9 in adult ([facility] Primary Type 2 diabetes mellitus with diabetic polyneuropathy, with long-term current use of insulin [facility]) Long-term insulin use [facility]) Benign essential hypertension ([facility])- Primary Essential hypertension, benign JARAD (generalized anxiety disorder) ([facility]) Generalized anxiety disorder Bilateral leg edema Edema Lumbar spondylosis Lumbosacral spondylosis without myelopathy Benign essential hypertension ([facility])- Primary Essential hypertension, benign JARAD (generalized anxiety disorder) ([facility]) Generalized anxiety disorder Lumbar spondylosis Lumbosacral spondylosis without myelopathy Bilateral leg edema Edema Prostate cancer ([facility]) Malignant neoplasm of prostate Type 2 diabetes mellitus with hyperglycemia, with long-term current use of insulin ([facility]) Class 2 severe obesity due to excess calories with serious comorbidity and body mass index (BMI) of 35.0 to 35.9 in adult ([facility])- Primary Type 2 diabetes mellitus with hyperglycemia, with long-term current use of insulin ([facility]) Type 2 diabetes mellitus with diabetic polyneuropathy, with long-term current use of insulin ([facility]) Long-term insulin use ([facility]) Type 2 diabetes mellitus with stage 3a chronic kidney disease, with long-term current use of insulin (HCC) ([facility]) Class 2 severe obesity due to excess calories with serious comorbidity and body mass index (BMI) of 35.0 to 35.9 in adult ([facility])- Primary Type 2 diabetes mellitus with diabetic polyneuropathy, with long-term current use of insulin ([facility]) Type 2 diabetes mellitus with stage 3a chronic kidney disease, with long-term current use of insulin (HCC) ([facility]) Long-term insulin use ([facility]) Benign essential hypertension ([facility])- Primary Essential hypertension, benign JARAD (generalized anxiety disorder) ([facility]) Generalized anxiety disorder Lumbar spondylosis Lumbosacral spondylosis without myelopathy Type 2 diabetes mellitus with diabetic polyneuropathy, with long-term current use of insulin ([facility]) Type 2 diabetes mellitus with stage 3b chronic kidney disease, with long-term current use of insulin ([facility]) ([facility]) Left shoulder pain, unspecified chronicity- Primary S/P arthroscopy of left shoulder documented in this encounter [facility]* Diagnosis Type 2 diabetes mellitus with diabetic polyneuropathy, with long-term current use of insulin ([facility]) Preop examination Unspecified pre-operative examination documented in this encounter [facility]* Diagnosis Type 2 diabetes mellitus with diabetic polyneuropathy, with long-term current use of insulin ([facility])- Primary Class 2 severe obesity due to excess calories with serious comorbidity and body mass index (BMI) of 35.0 to 35.9 in adult ([facility])- Primary Type 2 diabetes mellitus with diabetic polyneuropathy, with long-term current use of insulin ([facility] [facility]) Long[facility]term insulin use ([facility]) Lumbar spondylosis- Primary Lumbosacral spondylosis without myelopathy Benign essential hypertension ([facility]) Essential hypertension, benign Bilateral leg edema Edema Class 2 severe obesity due to excess calories with serious comorbidity and body mass index (BMI) of 36.0 to 36.9 in adult ([facility])- Primary Type 2 diabetes mellitus with diabetic polyneuropathy, with long-term current use of insulin ([facility] Benign essential hypertension ([facility])- Primary Essential hypertension, benign Lumbar spondylosis Lumbosacral spondylosis without myelopathy Bilateral leg edema Edema Type 2 diabetes mellitus with diabetic polyneuropathy, with long-term current use of insulin ([facility]) Hypercholesteremia ([facility]) Pure hypercholesterolemia Encounter for long-term (current) use of medications Encounter for long-term (current) use of other medications Obesity (BMI 30-39.9) Body mass index [BMI] 36.0-36.9, adult (Z68.36) JARAD (generalized anxiety disorder) ([facility])- Primary Generalized anxiety disorder Benign essential hypertension ([facility]) Essential hypertension, benign Class 2 severe obesity due to excess calories with serious comorbidity and body mass index (BMI) of 35.0 to 35.9 in adult ([facility])- Primary Type 2 diabetes mellitus with diabetic polyneuropathy, with long-term current use of insulin ([facility]) Long-term insulin use ([facility] Benign essential hypertension ([facility])- Primary Essential hypertension, benign JARAD (generalized anxiety disorder) ([facility]) Generalized anxiety disorder Bilateral leg edema Edema Lumbar spondylosis Lumbosacral spondylosis without myelopathy Benign essential hypertension ([facility])- Primary Essential hypertension, benign JARAD (generalized anxiety disorder) ([facility]) Generalized anxiety disorder Lumbar spondylosis Lumbosacral spondylosis without myelopathy Bilateral leg edema Edema Prostate cancer ([facility]) Malignant neoplasm of prostate Type 2 diabetes mellitus with hyperglycemia, with long-term current use of insulin ([facility]) Class 2 severe obesity due to excess calories with serious comorbidity and body mass index (BMI) of 35.0 to 35.9 in adult ([facility])- Primary Type 2 diabetes mellitus with hyperglycemia, with long-term current use of insulin ([facility]) Type 2 diabetes mellitus with diabetic polyneuropathy, with long-term current use of insulin ([facility]) Long-term insulin use ([facility]) Type 2 diabetes mellitus with stage 3a chronic kidney disease, with long-term current use of insulin ([facility]) ([facility]) Class 2 severe obesity due to excess calories with serious comorbidity and body mass index (BMI) of 35.0 to 35.9 in adult ([facility])- Primary Type 2 diabetes mellitus with diabetic polyneuropathy, with long-term current use of insulin ([facility]) Type 2 diabetes mellitus with stage 3a chronic kidney disease, with long-term current use of insulin (HCC) ([facility]) Long[facility]term insulin use ([facility] Benign essential hypertension ([facility])- Primary Essential hypertension, benign JARAD (generalized anxiety disorder) ([facility]) Generalized anxiety disorder Lumbar spondylosis Lumbosacral spondylosis without myelopathy Type 2 diabetes mellitus with diabetic polyneuropathy, with long-term current use of insulin ([facility]) Type 2 diabetes mellitus with stage 3b chronic kidney disease, with long-term current use of insulin ([facility]) ([facility]) Left shoulder pain, unspecified chronicity- Primary S/P arthroscopy of left shoulder S/P arthroscopy of left shoulder- Primary documented in this encounter [facility]* Diagnosis Type 2 diabetes mellitus with diabetic polyneuropathy, with long-term current use of insulin ([facility])- Primary Class 2 severe obesity due to excess calories with serious comorbidity and body mass index (BMI) of 35.0 to 35.9 in adult ([facility])- Primary Type 2 diabetes mellitus with diabetic polyneuropathy, with long-term current use of insulin ([facility]) Long-term insulin use ([facility]) Lumbar spondylosis- Primary Lumbosacral spondylosis without myelopathy Benign essential hypertension ([facility]) Essential hypertension, benign Bilateral leg edema Edema Class 2 severe obesity due to excess calories with serious comorbidity and body mass index (BMI) of 36.0 to 36.9 in adult ([facility])- Primary Type 2 diabetes mellitus with diabetic polyneuropathy, with long-term current use of insulin ([facility] Benign essential hypertension ([facility])- Primary Essential hypertension, benign Lumbar spondylosis Lumbosacral spondylosis without myelopathy Bilateral leg edema Edema Type 2 diabetes mellitus with diabetic polyneuropathy, with long-term current use of insulin ([facility]) Hypercholesteremia ([facility]) Pure hypercholesterolemia Encounter for long-term (current) use [...] (CMS/HCC)- Primary Type 2 diabetes mellitus with diabetic polyneuropathy, with long-term current use of insulin (CMS/HCC) Long-term insulin use (CMS/HCC) Benign essential hypertension [...] use of insulin (CMS/HCC) Long-term insulin use (CMS/HCC) Type 2 diabetes mellitus with stage 3a chronic kidney disease, with long-term current use of insulin (HCC) ([facility]) Class 2 severe obesity due to excess calories with serious comorbidity and body mass index (BMI) of 35.0 to 35.9 in adult (CMS/HCC)- Primary Type 2 diabetes mellitus with diabetic polyneuropathy, with long-term current use of insulin (CMS/HCC) Type 2 diabetes mellitus with stage 3a chronic kidney disease, with long-term current use of insulin (HCC) (CMS/HCC) Long-term insulin use (CMS/HCC) Benign essential hypertension (CMS/HCC)- Primary Essential hypertension, benign JARAD (generalized anxiety disorder) (CMS/HCC) Generalized anxiety disorder Lumbar spondylosis Lumbosacral spondylosis without myelopathy Type 2 diabetes mellitus with diabetic polyneuropathy, with long-term current use of insulin ([facility]) Type 2 diabetes mellitus with stage 3b chronic kidney disease, with long-term current use of insulin ([facility]) ([facility]) S/P arthroscopy of left shoulder- Primary documented in this encounter [facility]* Diagnosis Type 2 diabetes mellitus with diabetic polyneuropathy, with long-term current use of insulin ([facility])- Primary Class 2 severe obesity due to excess calories with serious comorbidity and body mass index (BMI) of 35.0 to 35.9 in adult ([facility])- Primary Type 2 diabetes mellitus with diabetic polyneuropathy, with long-term current use of insulin ([facility]) Long-term insulin use ([facility]) Lumbar spondylosis- Primary Lumbosacral spondylosis without myelopathy Benign essential hypertension ([facility]) Essential hypertension, benign Bilateral leg edema Edema Class 2 severe obesity due to excess calories with serious comorbidity and body mass index (BMI) of 36.0 to 36.9 in adult ([facility])- Primary Type 2 diabetes mellitus with diabetic polyneuropathy, with long-term current use of insulin ([facility] Benign essential hypertension ([facility])- Primary Essential hypertension, benign Lumbar spondylosis Lumbosacral spondylosis without myelopathy Bilateral leg edema Edema Type 2 diabetes mellitus with diabetic polyneuropathy, with long-term current use of insulin ([facility] Hypercholesteremia ([facility]) Pure hypercholesterolemia Encounter for long-term (current) use of medications Encounter for long-term (current) use of other medications Obesity (BMI 30-39.9) Body mass index [BMI] 36.0-36.9, adult (Z68.36) JARAD (generalized anxiety disorder) ([facility])- Primary Generalized anxiety disorder Benign essential hypertension ([facility]) Essential hypertension, benign Class 2 severe obesity due to excess calories with serious comorbidity and body mass index (BMI) of 35.0 to 35.9 in adult ([facility])- Primary Type 2 diabetes mellitus with diabetic polyneuropathy, with long-term current use of insulin ([facility]) Long-term insulin use ([facility] Benign essential hypertension ([facility])- Primary Essential hypertension, benign JARAD (generalized anxiety disorder) ([facility]) Generalized anxiety disorder Bilateral leg edema Edema Lumbar spondylosis Lumbosacral spondylosis without myelopathy Benign essential hypertension ([facility]/HCC)- Primary Essential hypertension, benign JARAD (generalized anxiety disorder) ([facility]) Generalized anxiety disorder Lumbar spondylosis Lumbosacral spondylosis without myelopathy Bilateral leg edema Edema Prostate cancer ([facility]) Malignant neoplasm of prostate Type 2 diabetes mellitus with hyperglycemia, with long-term current use of insulin ([facility]) Class 2 severe obesity due to excess calories with serious comorbidity and body mass index (BMI) of 35.0 to 35.9 in adult ([facility])- Primary Type 2 diabetes mellitus with hyperglycemia, with long-term current use of insulin ([facility]) Type 2 diabetes mellitus with diabetic polyneuropathy, with long-term current use of insulin ([facility]) Long-term insulin use ([facility]) Type 2 diabetes mellitus with stage 3a chronic kidney disease, with long-term current use of insulin ([facility]) ([facility]) Class 2 severe obesity due to excess calories with serious comorbidity and body mass index (BMI) of 35.0 to 35.9 in adult ([facility])- Primary Type 2 diabetes mellitus with diabetic polyneuropathy, with long-term current use of insulin ([facility]) Type 2 diabetes mellitus with stage 3a chronic kidney disease, with long-term current use of insulin ([facility]) ([facility]) Long[facility]term insulin use ([facility] Benign essential hypertension ([facility])- Primary Essential hypertension, benign JARAD (generalized anxiety disorder) ([facility]) Generalized anxiety disorder Lumbar spondylosis Lumbosacral spondylosis without myelopathy Type 2 diabetes mellitus with diabetic polyneuropathy, with long-term current use of insulin ([facility]) Type 2 diabetes mellitus with stage 3b chronic kidney disease, with long-term current use of insulin ([facility]) ([facility]) Left shoulder pain, unspecified chronicity- Primary S/P arthroscopy of left shoulder documented in this encounter [facility]* Diagnosis Type 2 diabetes mellitus with diabetic polyneuropathy, with long-term current use of insulin ([facility])- Primary Class 2 severe obesity due to excess calories with serious comorbidity and body mass index (BMI) of 35.0 to 35.9 in adult ([facility])- Primary Type 2 diabetes mellitus with diabetic polyneuropathy, with long-term current use of insulin ([facility]) Long-term insulin use ([facility]) Lumbar spondylosis- Primary Lumbosacral spondylosis without myelopathy Benign essential hypertension ([facility]) Essential hypertension, benign Bilateral leg edema Edema Class 2 severe obesity due to excess calories with serious comorbidity and body mass index (BMI) of 36.0 to 36.9 in adult ([facility])- Primary Type 2 diabetes mellitus with diabetic polyneuropathy, with long-term current use of insulin ([facility] Benign essential hypertension ([facility])- Primary Essential hypertension, benign Lumbar spondylosis Lumbosacral spondylosis without myelopathy Bilateral leg edema Edema Type 2 diabetes mellitus with diabetic polyneuropathy, with long-term current use of insulin ([facility] Hypercholesteremia ([facility]) Pure hypercholesterolemia Encounter for long-term (current) use of medications Encounter for long-term (current) use of other medications Obesity (BMI 30-39.9) Body mass index [BMI] 36.0-36.9, adult (Z68.36) JARAD (generalized anxiety disorder) ([facility])- Primary Generalized anxiety disorder Benign essential hypertension ([facility]) Essential hypertension, benign Class 2 severe obesity due to excess calories with serious comorbidity and body mass index (BMI) of 35.0 to 35.9 in adult [place] Type 2 diabetes mellitus with diabetic polyneuropathy, with long-term current use of insulin ([facility]) Long-term insulin use ([facility] Benign essential hypertension ([facility])- Primary Essential hypertension, benign JARAD (generalized anxiety disorder) ([facility]) Generalized anxiety disorder Bilateral leg edema Edema Lumbar spondylosis Lumbosacral spondylosis without myelopathy Benign essential hypertension ([facility])- Primary Essential hypertension, benign JARAD (generalized anxiety disorder) ([facility]) Generalized anxiety disorder Lumbar spondylosis Lumbosacral spondylosis without myelopathy Bilateral leg edema Edema Prostate cancer ([facility]) Malignant neoplasm of prostate Type 2 diabetes mellitus with hyperglycemia, with long-term current use of insulin ([facility]) Class 2 severe obesity due to excess calories with serious comorbidity and body mass index (BMI) of 35.0 to 35.9 in adult [place] Primary Type 2 diabetes mellitus with hyperglycemia, with long-term current use of insulin ([facility]) Type 2 diabetes mellitus with diabetic polyneuropathy, with long-term current use of insulin ([facility]) Long-term insulin use ([facility]) Type 2 diabetes mellitus with stage 3a chronic kidney disease, with long-term current use of insulin (HCC) ([facility]) Class 2 severe obesity due to excess calories with serious comorbidity and body mass index (BMI) of 35.0 to 35.9 in adult ([facility])- Primary Type 2 diabetes mellitus with diabetic polyneuropathy, with long-term current use of insulin ([facility]) Type 2 diabetes mellitus with stage 3a chronic kidney disease, with long-term current use of insulin (HCC) ([facility]) Long[facility]term insulin use ([facility]) Benign essential hypertension ([facility])- Primary Essential hypertension, benign JARAD (generalized anxiety disorder) ([facility]) Generalized anxiety disorder Lumbar spondylosis Lumbosacral spondylosis without myelopathy Type 2 diabetes mellitus with diabetic polyneuropathy, with long-term current use of insulin ([facility]) Type 2 diabetes mellitus with stage 3b chronic kidney disease, with long-term current use of insulin ([facility]) ([facility]) Left shoulder pain, unspecified chronicity- Primary S/P arthroscopy of left shoulder documented in this encounter [facility]* Diagnosis Type 2 diabetes mellitus with diabetic polyneuropathy, with long-term current use of insulin ([facility])- Primary Class 2 severe obesity due to excess calories with serious comorbidity and body mass index (BMI) of 35.0 to 35.9 in adult ([facility])- Primary Type 2 diabetes mellitus with diabetic polyneuropathy, with long-term current use of insulin ([facility]) Long-term insulin use ([facility]) Lumbar spondylosis- Primary Lumbosacral spondylosis without myelopathy Benign essential hypertension ([facility]) Essential hypertension, benign Bilateral leg edema Edema Class 2 severe obesity due to excess calories with serious comorbidity and body mass index (BMI) of 36.0 to 36.9 in adult ([facility])- Primary Type 2 diabetes mellitus with diabetic polyneuropathy, with long-term current use of insulin ([facility]) Benign essential hypertension ([facility]/HCC)- Primary Essential hypertension, benign Lumbar spondylosis Lumbosacral spondylosis without myelopathy Bilateral leg edema Edema Type 2 diabetes mellitus with diabetic polyneuropathy, with long-term current use of insulin ([facility] Hypercholesteremia ([facility]) Pure hypercholesterolemia Encounter for long-term (current) use of medications Encounter for long-term (current) use of other medications Obesity (BMI 30-39.9) Body mass index [BMI] 36.0-36.9, adult (Z68.36) JARAD (generalized anxiety disorder) ([facility])- Primary Generalized anxiety disorder Benign essential hypertension ([facility]) Essential hypertension, benign Class 2 severe obesity due to excess calories with serious comorbidity and body mass index (BMI) of 35.0 to 35.9 in adult ([facility])- Primary Type 2 diabetes mellitus with diabetic polyneuropathy, with long-term current use of insulin ([facility]) Long[facility]term insulin use ([facility]) Benign essential hypertension ([facility])- Primary Essential hypertension, benign JARAD (generalized anxiety disorder) ([facility]) Generalized anxiety disorder Bilateral leg edema Edema Lumbar spondylosis Lumbosacral spondylosis without myelopathy Benign essential hypertension ([facility])- Primary Essential hypertension, benign JARAD (generalized anxiety disorder) ([facility]) Generalized anxiety disorder Lumbar spondylosis Lumbosacral spondylosis without myelopathy Bilateral leg edema Edema Prostate cancer ([facility]) Malignant neoplasm of prostate Type 2 diabetes mellitus with hyperglycemia, with long-term current use of insulin ([facility]) Class 2 severe obesity due to excess calories with serious comorbidity and body mass index (BMI) of 35.0 to 35.9 in adult ([facility])- Primary Type 2 diabetes mellitus with hyperglycemia, with long-term current use of insulin ([facility]) Type 2 diabetes mellitus with diabetic polyneuropathy, with long-term current use of insulin ([facility]) Long-term insulin use ([facility]) Type 2 diabetes mellitus with stage 3a chronic kidney disease, with long-term current use of insulin ([facility]) ([facility]) Class 2 severe obesity due to excess calories with serious comorbidity and body mass index (BMI) of 35.0 to 35.9 in adult ([facility])- Primary Type 2 diabetes mellitus with diabetic polyneuropathy, with long-term current use of insulin ([facility]) Type 2 diabetes mellitus with stage 3a chronic kidney disease, with long-term current use of insulin (HCC) ([facility]) Long-term insulin use ([facility]) Benign essential hypertension ([facility])- Primary Essential hypertension, benign JARAD (generalized anxiety disorder) ([facility]) Generalized anxiety disorder Lumbar spondylosis Lumbosacral spondylosis without myelopathy Type 2 diabetes mellitus with diabetic polyneuropathy, with long-term current use of insulin ([facility]) Type 2 diabetes mellitus with stage 3b chronic kidney disease, with long-term current use of insulin ([facility]) ([facility]) Left shoulder pain, unspecified chronicity- Primary S/P arthroscopy of left shoulder documented in this encounter [facility]* Diagnosis Type 2 diabetes mellitus with diabetic polyneuropathy, with long-term current use of insulin ([facility])- Primary Class 2 severe obesity due to excess calories with serious comorbidity and body mass index (BMI) of 35.0 to 35.9 in adult ([facility])- Primary Type 2 diabetes mellitus with diabetic polyneuropathy, with long-term current use of insulin ([facility]) Long-term insulin use ([facility]) Lumbar spondylosis- Primary Lumbosacral spondylosis without myelopathy Benign essential hypertension ([facility]) Essential hypertension, benign Bilateral leg edema Edema Class 2 severe obesity due to excess calories with serious comorbidity and body mass index (BMI) of 36.0 to 36.9 in adult ([facility])- Primary Type 2 diabetes mellitus with diabetic polyneuropathy, with long-term current use of insulin ([facility] Benign essential hypertension ([facility])- Primary Essential hypertension, benign Lumbar spondylosis Lumbosacral spondylosis without myelopathy Bilateral leg edema Edema Type 2 diabetes mellitus with diabetic polyneuropathy, with long-term current use of insulin ([facility] Hypercholesteremia ([facility]) Pure hypercholesterolemia Encounter for long-term (current) use of medications Encounter for long-term (current) use of other medications Obesity (BMI 30-39.9) Body mass index [BMI] 36.0-36.9, adult (Z68.36) JARAD (generalized anxiety disorder) ([facility])- Primary Generalized anxiety disorder Benign essential hypertension ([facility]) Essential hypertension, benign Class 2 severe obesity due to excess calories with serious comorbidity and body mass index (BMI) of 35.0 to 35.9 in adult ([facility])- Primary Type 2 diabetes mellitus with diabetic polyneuropathy, with long-term current use of insulin ([facility]) Long-term insulin use ([facility]) Benign essential hypertension ([facility]/HCC)- Primary Essential hypertension, benign JARAD (generalized anxiety disorder) ([facility]) Generalized anxiety disorder Bilateral leg edema Edema Lumbar spondylosis Lumbosacral spondylosis without myelopathy Benign essential hypertension (CMS/HCC)- Primary Essential hypertension, benign JARAD (generalized anxiety disorder) ([facility]/HCC) Generalized anxiety disorder Lumbar spondylosis Lumbosacral spondylosis without myelopathy Bilateral leg edema Edema Prostate cancer ([facility]) Malignant neoplasm of prostate Type 2 diabetes mellitus with hyperglycemia, with long-term current use of insulin ([facility]) Class 2 severe obesity due to excess calories with serious comorbidity and body mass index (BMI) of 35.0 to 35.9 in adult ([facility])- Primary Type 2 diabetes mellitus with hyperglycemia, with long-term current use of insulin ([facility]) Type 2 diabetes mellitus with diabetic polyneuropathy, with long-term current use of insulin ([facility]) Long-term insulin use ([facility]) Type 2 diabetes mellitus with stage 3a chronic kidney disease, with long-term current use of insulin ([facility]) ([facility]) Class 2 severe obesity due to excess calories with serious comorbidity and body mass index (BMI) of 35.0 to 35.9 in adult ([facility])- Primary Type 2 diabetes mellitus with diabetic polyneuropathy, with long-term current use of insulin ([facility]) Type 2 diabetes mellitus with stage 3a chronic kidney disease, with long-term current use of insulin ([facility]) ([facility]) Long-term insulin use ([facility]) Benign essential hypertension ([facility])- Primary Essential hypertension, benign JARAD (generalized anxiety disorder) ([facility]) Generalized anxiety disorder Lumbar spondylosis Lumbosacral spondylosis without myelopathy Type 2 diabetes mellitus with diabetic polyneuropathy, with long-term current use of insulin ([facility]) Type 2 diabetes mellitus with stage 3b chronic kidney disease, with long-term current use of insulin ([facility]) ([facility]) S/P arthroscopy of left shoulder- Primary documented in [facility] encounter [facility]* Diagnosis Type 2 diabetes mellitus with diabetic polyneuropathy, with long-term current use of insulin ([facility])- Primary Class 2 severe obesity due to excess calories with serious comorbidity and body mass index (BMI) of 35.0 to 35.9 in adult ([facility])- Primary Type 2 diabetes mellitus with diabetic polyneuropathy, with long-term current use of insulin ([facility]) Long-term insulin use ([facility]) Lumbar spondylosis- Primary Lumbosacral spondylosis without myelopathy Benign essential hypertension ([facility]) Essential hypertension, benign Bilateral leg edema Edema Class 2 severe obesity due to excess calories with serious comorbidity and body mass index (BMI) of 36.0 to 36.9 in adult ([facility] Primary Type 2 diabetes mellitus with diabetic polyneuropathy, with long-term current use of insulin ([facility]) Benign essential hypertension ([facility])- Primary Essential hypertension, benign Lumbar spondylosis Lumbosacral spondylosis without myelopathy Bilateral leg edema Edema Type 2 diabetes mellitus with diabetic polyneuropathy, with long-term current use of insulin ([facility] Hypercholesteremia ([facility]) Pure hypercholesterolemia Encounter for long-term (current) use of medications Encounter for long-term (current) use of other medications Obesity (BMI 30-39.9) Body mass index [BMI] 36.0-36.9, adult (Z68.36) JARAD (generalized anxiety disorder) ([facility])- Primary Generalized anxiety disorder Benign essential hypertension ([facility]) Essential hypertension, benign Class 2 severe obesity due to excess calories with serious comorbidity and body mass index (BMI) of 35.0 to 35.9 in adult ([facility] Primary Type 2 diabetes mellitus with diabetic polyneuropathy, with long-term current use of insulin ([facility]) Long[facility]term insulin use ([facility]) Benign essential hypertension ([facility])- Primary Essential hypertension, benign JARAD (generalized anxiety disorder) ([facility]) Generalized anxiety disorder Bilateral leg edema Edema Lumbar spondylosis Lumbosacral spondylosis without myelopathy Benign essential hypertension ([facility])- Primary Essential hypertension, benign JARAD (generalized anxiety disorder) ([facility]) Generalized anxiety disorder Lumbar spondylosis Lumbosacral spondylosis without myelopathy Bilateral leg edema Edema Prostate cancer ([facility]) Malignant neoplasm of prostate Type 2 diabetes mellitus with hyperglycemia, with long-term current use of insulin ([facility]) Class 2 severe obesity due to excess calories with serious comorbidity and body mass index (BMI) of 35.0 to 35.9 in adult ([facility] Primary Type 2 diabetes mellitus with hyperglycemia, with long-term current use of insulin ([facility]) Type 2 diabetes mellitus with diabetic polyneuropathy, with long-term current use of insulin ([facility]) Long-term insulin use ([facility]) Type 2 diabetes mellitus with stage 3a chronic kidney disease, with long-term current use of insulin (HCC) ([facility]) Class 2 severe obesity due to excess calories with serious comorbidity and body mass index (BMI) of 35.0 to 35.9 in adult ([facility])- Primary Type 2 diabetes mellitus with diabetic polyneuropathy, with long-term current use of insulin ([facility]) Type 2 diabetes mellitus with stage 3a chronic kidney disease, with long-term current use of insulin (HCC) ([facility]) Long-term insulin use ([facility]) Benign essential hypertension ([facility])- Primary Essential hypertension, benign JARAD (generalized anxiety disorder) ([facility]) Generalized anxiety disorder Lumbar spondylosis Lumbosacral spondylosis without myelopathy Type 2 diabetes mellitus with diabetic polyneuropathy, with long-term current use of insulin ([facility]) Type 2 diabetes mellitus with stage 3b chronic kidney disease, with long-term current use of insulin (HCC) ([facility]) Left shoulder pain, unspecified chronicity- Primary S/P arthroscopy of left shoulder documented in this encounter [facility] HealthcareEvaluation [facility]* Diagnosis Type 2 diabetes mellitus with diabetic polyneuropathy, with long-term current use of insulin ([facility])- Primary Class 2 severe obesity due to excess calories with serious comorbidity and body mass index (BMI) of 35.0 to 35.9 in adult ([facility])- Primary Type 2 diabetes mellitus with diabetic polyneuropathy, with long-term current use of insulin ([facility]) Long-term insulin use ([facility]) Lumbar spondylosis- Primary Lumbosacral spondylosis without myelopathy Benign essential hypertension ([facility]) Essential hypertension, benign Bilateral leg edema Edema Class 2 severe obesity due to excess calories with serious comorbidity and body mass index (BMI) of 36.0 to 36.9 in adult ([facility])- Primary Type 2 diabetes mellitus with diabetic polyneuropathy, with long-term current use of insulin ([facility] Benign essential hypertension ([facility])- Primary Essential hypertension, benign Lumbar spondylosis Lumbosacral spondylosis without myelopathy Bilateral leg edema Edema Type 2 diabetes mellitus with diabetic polyneuropathy, with long-term current use of insulin ([facility] Hypercholesteremia ([facility]) Pure hypercholesterolemia Encounter for long-term (current) use of medications Encounter for long-term (current) use of other medications Obesity (BMI 30-39.9) Body mass index [BMI] 36.0-36.9, adult (Z68.36) JARAD (generalized anxiety disorder) ([facility])- Primary Generalized anxiety disorder Benign essential hypertension ([facility]) Essential hypertension, benign Class 2 severe obesity due to excess calories with serious comorbidity and body mass index (BMI) of 35.0 to 35.9 in adult ([facility])- Primary Type 2 diabetes mellitus with diabetic polyneuropathy, with long-term current use of insulin ([facility]) Long-term insulin use ([facility]) Benign essential hypertension ([facility])- Primary Essential hypertension, benign JARAD (generalized anxiety disorder) ([facility]) Generalized anxiety disorder Bilateral leg edema Edema Lumbar spondylosis Lumbosacral spondylosis without myelopathy Benign essential hypertension ([facility])- Primary Essential hypertension, benign JARAD (generalized anxiety disorder) ([facility]) Generalized anxiety disorder Lumbar spondylosis Lumbosacral spondylosis without myelopathy Bilateral leg edema Edema Prostate cancer ([facility]) Malignant neoplasm of prostate Type 2 diabetes mellitus with hyperglycemia, with long-term current use of insulin ([facility]) Class 2 severe obesity due to excess calories with serious comorbidity and body mass index (BMI) of 35.0 to 35.9 in adult ([facility])- Primary Type 2 diabetes mellitus with hyperglycemia, with long-term current use of insulin ([facility]) Type 2 diabetes mellitus with diabetic polyneuropathy, with long-term current use of insulin ([facility]) Long-term insulin use ([facility]) Type 2 diabetes mellitus with stage 3a chronic kidney disease, with long-term current use of insulin ([facility]) ([facility]) Class 2 severe obesity due to excess calories with serious comorbidity and body mass index (BMI) of 35.0 to 35.9 in adult ([facility])- Primary Type 2 diabetes mellitus with diabetic polyneuropathy, with long-term current use of insulin ([facility]) Type 2 diabetes mellitus with stage 3a chronic kidney disease, with long-term current use of insulin ([facility]) ([facility]) Long-term insulin use (CMS/HCC) Benign essential hypertension (CMS/HCC)- Primary Essential hypertension, benign JARAD (generalized anxiety disorder) (CMS/HCC) Generalized anxiety disorder Lumbar spondylosis Lumbosacral spondylosis without myelopathy Type 2 diabetes mellitus with diabetic polyneuropathy, with long-term current use of insulin (CMS/HCC) Type 2 diabetes mellitus with stage 3b chronic kidney disease, with long-term current use of insulin (HCC) (CMS/HCC) Left shoulder pain, unspecified chronicity- Primary S/P arthroscopy of left shoulder documented in this encounter [facility] Author Kike Bernal [facility] July 24, 2022 1:05pm Note Date/Time July 24, 2022 1 :05pm [facility] [address] [place] [address] Gastroenterology H&P Signed Patient: Milad Seymour MR#: [id number] : 1955 Acct:[id number] Age/Sex: 66 / M Adm Date: 3 Loc: Room: Type: [facility] Attending Dr: Kike Bernal MD [...] <Electronically signed by Kike Bernal MD> 07/24/22 1303 [facility] Work Phone: History and physical note Author Kike Bernal [facility] April 27, 2023 11:41am Note Date/Time April 27, 2023 11:41am [facility] [address] [place] [address] Gastroenterology H&P Signed Patient: Milad Seymour MR#: [id number] : 1955 Acct:[id number] Age/Sex: 67 / M Adm Date: 3 Loc: Room: Type: [facility] Attending Dr: Kike Bernal MD [...] Kike Bernal MD> 04/27/[address] [facility] Work Phone: History general Narrative [...] Hospitalization History none in the last year [facility] Other Hospital course Narrative No data available for this section [facility] Hospital Discharge instructions Additional Instructions DISCHARGE [...] problems. -Follow up with PCP. -Office number [phone]. [facility] Work Phone: Hospital Discharge instructions No data available for this section [facility] Hospital Discharge instructions Additional Instructions DISCHARGE [...] in the office as scheduled -Office number [phone]. [facility] Work Phone: InstructionsNot on filedocumented in this encounter [facility] SystemInstructionsNot on filedocumented in this encounter [facility] SystemInstructionsNot on filedocumented in this encounter [facility] SystemProgress note No data available for this section [facility] reason for visit Narrative* Consultation (Routine) - Authorized Specialty Diagnoses / Procedures Referred By Anabel salinas Referred To Contact Physical Therapy Diagnoses S/P arthroscopy of left shoulder Procedures [facility] Rebecca Bonner PA [address] [address] Phone: tel: fax: Alma Berkowitz PT Referral ID Status Reason Start Date Expiration Date Visits Requested Visits Authorized [id number] Authorized Consult and Treat 05/13/2024 08/10/2024 12 12 [facility] Narrative* Consultation (Routine) - Closed Specialty Diagnoses / Procedures Referred By Contfelipa t Referred To Contact Physical Therapy Diagnoses S/P arthroscopy of left shoulder Procedures MO OFFICE/OUTPATIENT [facility] Rebecca Dias PA [address] [facility] [address] [place] [address] Phone: tel: fax: Alma Berkowitz, OSWALD Referral ID Status Reason Start Date Expiration Date V isits Requested Visits Authorized [id number] Closed Consult and Treat 05/13/2024 08/10/2024 12 12 [facility] for [facility] Narrative* Rehabilitation - Outpatient (Routine) - Authorized Specialty Diagnoses / Procedures Referred By Contac t Referred To Contact Physical Therapy Diagnoses S/P arthroscopy of left shoulder Procedures MO THER PX 1/> AREAS EACH 15 MIN NEUROMUSC REEDUCA MO THERAPEUTIC PX 1/> AREAS EACH 15 MIN EXERCISES MO OFFICE/OUTPATIENT NEW HIGH MDM 60 MINUTES PHYS/OCC THERAPY SS Rebecca Dias, PA [address] [address] Phone: tel: fax: Alma Berkowitz PT Referral ID Status Reason Start Date Expiration Date V isits Requested Visits Authorized [id number] Authorized 07/01/2024 09/28/2024 12 12 [facility] Summary Purpose Family History Relationship Condition Age [...] more parameters with PAP titration Gregoria Ralph ALIGNER TYPEWRITER-HEALTH AND SAFETY REPRESENTATIVE 1438 [facility], [address] [address] Referral ID Status Reason Start Date Expiration Date V isits Requested Visits Authorized [id number] Pending Review 08/15/2023 08/14/2024 1 1 Specialty Diagnoses / Procedures Referred By Contac t Referred To Contact Diagnoses Obstructive sleep apnea syndrome CSA (central sleep apnea) Procedures Echo complete W/O contrast Gregoria Ralph ALIGNER TYPEWRITER-HEALTH AND SAFETY REPRESENTATIVE [address] [address] [facility] [address] [place] [address] Phone: [phone] Referral ID Status Reason Start Date Expiration Date V isits Requested Visits Authorized [id number] Authorized 08/15/2023 11/12/2023 1 1 Specialty Diagnoses / Procedures Referred By Contac t Referred To Contact Radiology Diagnoses Personal history of tobacco use, presenting hazards to health Procedures CT low dose lung screenin (3mo 6mo follow-up) Gregoria Ralph ALIGNER TYPEWRITER-HEALTH AND SAFETY REPRESENTATIVE [address] [address] [facility] [address] [place] [address] Phone: [phone] Referral ID Status Reason Start Date Expiration Date V isits Requested Visits Authorized [id number] Authorized 08/16/2023 11/13/2023 1 1 Additional Source Comments (unrecognized sect ion and content) No Status Records FoundNo Status Records FoundNo Status Records FoundNo Status Records FoundNo Status Records FoundNo Status Records FoundNo Status Records FoundNo Status Records FoundNo Status Records Found INFORMATION SOURCE (unrecogn ized section and content) DATE CREATED AUTHOR 08/06/2021 [facility] DATE CREATED AUTHOR AUTHOR'S ORGANIZ ATION 10/24/2022 [facility] DATE CREATED AUTHOR AUTHOR'S ORGANIZ ATION 11/20/2023 [facility] DATE CREATED AUTHOR AUTHOR'S ORGANIZ ATION 12/15/2023 [facility] DATE CREATED AUTHOR AUTHOR'S ORGANIZ ATION 02/05/2024 [facility] DATE CREATED AUTHOR AUTHOR'S ORGANIZ ATION 02/26/2024 [facility] DATE CREATED AUTHOR AUTHOR'S ORGANIZ ATION 03/19/2024 [facility] DATE CREATED AUTHOR AUTHOR'S ORGANIZ ATION 07/08/2024 [facility] DATE CREATED AUTHOR AUTHOR'S ORGANIZ ATION 07/20/2024 [facility] Care Team (unrecognized sect ion and [...] July 17, 2023 End: July 17, 2023 Networking Technology Instructor Relationship Specialty Start Date End Date Dank Campo MD [address] [place] [address] PCP - General Family Medicine 07/25/23 Networking Technology Instructor Relationship Specialty Start Date End Date Dank Campo MD [address] [place] [address] PCP - General Family Medicine 07/25/23 Networking Technology Instructor Relationship Specialty Start Date End Date Dank Campo MD [address] [facility] [place] [address] PCP - General Family Medicine 12/10/17 Team [...] August 09, 2023 End: August 09, 2023 Networking Technology Instructor Relationship Specialty Start Date End Date Dank Campo MD [address] [facility] [place], [place] [phone] PCP - General Family Medicine 12/10/17 Networking Technology Instructor Relationship Specialty Start Date End Date Dank Campo MD [address] [facility] [place], [place] [phone] PCP - General Family Medicine 12/10/17 Team Status: Inactive Member Role Status Dates Dank Campo MD Primary Care Provider Active S tart: March 17, 2024 End: March 17, 2024 Rich Alvares APRN Attending Provider Active Start: March 17, 2024 End: March 17, 2024 Networking Technology Instructor Relationship Specialty Start Date End Date Dank Campo MD [address] [place] [address] PCP - General Family Medicine 03/12/24 Networking Technology Instructor Relationship Specialty Start Date End Date Dank Campo MD [address] [place] [address] PCP - General Family Medicine 08/17/23 Networking Technology Instructor Relationship Specialty Start Date End Date Dank Campo MD [address] [place] [address] PCP - General Family Medicine 08/17/23 Networking Technology Instructor Relationship Specialty Start Date End Date Dank Campo MD [address] [place] [address] PCP - General Family Medicine 08/17/23 Networking Technology Instructor Relationship Specialty Start Date End Date Dank Campo MD [address] [place] [address] PCP - General Family Medicine 08/17/23 Networking Technology Instructor Relationship Specialty Start Date End Date Dank Campo MD [address] [place] [address] PCP - General Family Medicine 08/17/23 Networking Technology Instructor Relationship Specialty Start Date End Date Dank Campo MD [address] [place] [address] PCP - General Family Medicine 08/17/23 Networking Technology Instructor Relationship Specialty Start Date End Date Dank Campo MD [address] [place] [address] PCP - General Family Medicine 08/17/23 Team Status: Inactive Member Role Status Dates Dank Campo MD Primary Care Provider Active S tart: April 15, 2024 End: April 15, 2024 Rich Alvares APRN Attending Provider Active Start: April 15, 2024 End: April 15, 2024 Networking Technology Instructor Relationship Specialty Start Date End Date Dank Campo MD [address] [place] [address] PCP - General Family Medicine 08/17/23 Networking Technology Instructor Relationship Specialty Start Date End Date Dnak Campo MD [address] [place] [address] PCP - General Family Medicine 08/17/23 Networking Technology Instructor Relationship Specialty Start Date End Date Dank Campo MD [address] [place] [address] PCP - General Family Medicine 08/17/23 Networking Technology Instructor Relationship Specialty Start Date End Date Dank Campo MD [address] [place] [address] PCP - General Family Medicine 08/17/23 Networking Technology Instructor Relationship Specialty Start Date End Date Dank Campo MD [address] [place] [address] PCP - General Family Medicine 08/17/23 Networking Technology Instructor Relationship Specialty Start Date End Date Dank Campo MD [address] [place] [address] PCP - General Family Medicine 08/17/23 Networking Technology Instructor Relationship Specialty Start Date End Date Dank Campo MD [address] [place] [address] PCP - General Family Medicine 08/17/23 Networking Technology Instructor Relationship Specialty Start Date End Date Dank Campo MD [address] [place] [address] PCP - General Family Medicine 08/17/23 Networking Technology Instructor Relationship Specialty Start Date End Date Dank Campo MD [address] [place] [address] PCP - General Family Medicine 08/17/23 Networking Technology Instructor Relationship Specialty Start Date End Date Dank Campo MD [address] [place] [address] PCP - General Family Medicine 08/17/23 Networking Technology Instructor Relationship Specialty Start Date End Date Dank Campo MD [address] [place] [address] PCP - General Family Medicine 08/17/23 Networking Technology Instructor Relationship Specialty Start Date End Date Dank Campo MD [address] [place] [address] PCP - General Family Medicine 08/17/23 Networking Technology Instructor Relationship Specialty Start Date End Date Dank Campo MD [address] [place] [address] PCP - General Family Medicine 08/17/23 Networking Technology Instructor Relationship Specialty Start Date End Date Dank Campo MD [address] [place] [address] PCP - General Family Medicine 08/17/23 Networking Technology Instructor Relationship Specialty Start Date End Date Dank Campo MD [address] [place] [address] PCP - General Family Medicine 08/17/23 Networking Technology Instructor Relationship Specialty Start Date End Date Dank Campo MD [address] [place] [address] PCP - General Family Medicine 08/17/23 Networking Technology Instructor Relationship Specialty Start Date End Date Dank Campo MD [address] [place] [address] PCP - General Family Medicine 08/17/23 Networking Technology Instructor Relationship Specialty Start Date End Date Dank Campo MD [address] [place] [address] PCP - General Family Medicine 08/17/23 Networking Technology Instructor Relationship Specialty Start Date End Date Dank Campo MD [address] [place] [address] PCP - General Family Medicine 08/17/23 Networking Technology Instructor Relationship Specialty Start Date End Date Dank Campo MD [address] [place] [address] PCP - General Family Medicine 08/17/23 Networking Technology Instructor Relationship Specialty Start Date End Date Dank Campo MD [address] [place] [address] PCP - General Family Medicine 08/17/23 Networking Technology Instructor Relationship Specialty Start Date End Date Dank Campo MD [address] [place] [address] PCP - General Family Medicine 08/17/23 Networking Technology Instructor Relationship Specialty Start Date End Date Dank Campo MD [address] [place] [address] PCP - General Family Medicine 08/17/23 Networking Technology Instructor Relationship Specialty Start Date End Date Dank Campo MD [address] [place] [address] PCP - General Family Medicine 08/17/23 Networking Technology Instructor Relationship Specialty Start Date End Date Dank Campo MD [address] [place] [address] PCP - General Family Medicine 08/17/23 Networking Technology Instructor Relationship Specialty Start Date End Date Dank Campo MD [address] [place] [address] PCP - General Family Medicine 08/17/23 Networking Technology Instructor Relationship Specialty Start Date End Date Dank Campo MD [address] [place] [address] PCP - General Family Medicine 08/17/23 Networking Technology Instructor Relationship Specialty Start Date End Date Dank Campo MD [address] [place] [address] PCP - General Family Medicine 08/17/23 Networking Technology Instructor Relationship Specialty Start Date End Date Dank Campo MD [address] [place] [address] PCP - General Family Medicine 08/17/23 Networking Technology Instructor Relationship Specialty Start Date End Date Dank Campo MD [address] [place] [address] PCP - General Family Medicine 08/17/23 REASON FOR VISIT (unrecogniz ed section and content) Reason Comments Diabetes Reason Comments Sleep Apnea DME: [facility] Specialty Diagnoses / Procedures Referred By Contfelipa t Referred To Contact Pulmonary Medicine / Sleep Medicine Diagnoses Obstructive sleep apnea syndrome Jyoti Roth, ALIGNER TYPEWRITER-HEALTH AND SAFETY REPRESENTATIVE [address] [place] [address] [facility] Pulm Sleep Med [address] [address] Referral ID Status Reason Start Date Expiration Date Visits Requested Visits Authorized [id number] Pending Review Specialty Services Required 08/13/2023 08/12/2024 1 1 Reason Onset Date Comments Sleep Lab 08/17/2023 CPAP Reason Comments Pain Reason Comments Pain Reason Onset Date Comments PO PT Eval 05/12/2024 Tried to contact to schedule PO PT Eval for L shoulder scope, that was on 04/25; requested a call back dolores. Call Back 05/12/2024 He contacted and we scheduled PT Eval 05/13 and then continued out 2x/2's a week up to 06/05/24. Reason Comments Dry Eye Follow-up 6mWould like med [facility] rease Reason Comments Foot Pain Darrin Seymour 68yo inocencio ent presents with Left foot lateral side foot pain. NKI, pain started 2 weeks ago. Pain level at a 2 at this time. Patient has been receiving steroid injections in his back and Blood sugars have been elevated per patient. BS [address] Campo 05/28/2024. Patient relates since starting Gabapentin in February Neuropathy pain has resolved. SS 11.5 Reason Onset Date Comments Advice Only 02/04/2024 [employer] Goals (unrecognized section and content) Goals may [...] BE BASED ON THE PRIMARY CLINICAL RECORDS. [facility]. provides no warranty or guarantee of the accuracy or completeness of information in this document.
--- NOTE | 2024-07-21 12:46 | P.CN_ITS ---
Consult Note: HPI Data of Consult Patient: known to practice within the last 3 years Consult date: 07/21/24 Requesting Physician: Roma Lopez MD Primary Care Provider: Dank Bella MD Consult Narrative Reason for consult: low back pain, bilateral knee pain Narrative: 68yom who presents for assessment. notes persistence of pain throughout low back, as well as bilateral knee pain. knee xrays should severe bilateral knee osteoarthritis. had significant relief >80% with first bilateral l3-4, l4-5 medial branch block, but less robust with second. lumbar xr shows extensive facet arthropathy. denies adverse med side effects. continue in >6 weeks of provider directed home exercises, without benefit. cc:: CC: Roma Lopez MD Review of Systems ROS Status of ROS 10 or more systems reviewed and unremark able except as noted in history and below [facility] Medical History Low back pain ?M54.50 - Low back pain, unspecified (ICD-10) Neck pain ?M54.2 - Cervicalgia (ICD-10) Osteoarthritis ?M19.90 - Unspecified osteoarthritis, unspecified site (ICD-10) Anxiety ?F41.9 - Anxiety disorder, unspecified (ICD-10) Heartburn ?R12 - Heartburn (ICD-10) Hiatal hernia ?K44.9 - Diaphragmatic hernia without obstruction or gangrene (ICD-10) Acid reflux ?K21.9 - Gastro-esophageal reflux disease without esophagitis (ICD-10) Prostate cancer ?C61 - Malignant neoplasm of prostate (ICD-10) Enlarged prostate ?N40.0 - Benign prostatic hyperplasia without lower urinary tract symptoms (ICD-10) Diabetes ?E11.9 - Type 2 diabetes mellitus without complications (ICD-10) History of home ventilator ?Z99.11 - Dependence on respirator [ventilator] status (ICD-10) Smoker ?F17.200 - Nicotine dependence, unspecified, uncomplicated (ICD-10) Sleep apnea ?G47.30 - Sleep apnea, unspecified (ICD-10) COPD (chronic obstructive pulmonary disease) ?J44.9 - Chronic obstructive pulmonary disease, unspecified (ICD-10) Heart murmur ?R01.1 - Cardiac murmur, unspecified (ICD-10) Irregular heart beat ?I49.9 - Cardiac arrhythmia, unspecified (ICD-10) High cholesterol ?E78.00 - Pure hypercholesterolemia, unspecified (ICD-10) Hypertension ?I10 - Essential (primary) hypertension (ICD-10) Surgical History S/P foot surgery ?Z98.890 - Other specified postprocedural states (ICD-10) Hx laparoscopic cholecystectomy ?Z90.49 - Acquired absence of other specified parts of digestive tract (ICD- 10) S/P shoulder surgery ?Z98.890 - Other specified postprocedural states (ICD-10) S/P left knee arthroscopy ?Z98.890 - Other specified postprocedural states (ICD-10) History of appendectomy ?Z90.49 - Acquired absence of other specified parts of digestive tract (ICD- 10) Meds Home Medications and Allergies Home Medications ?Medication ?Instructions ?Recorded ?Confirmed ?Type aspirin 81 mg capsule 81 mg PO DAILY 10/02/23 07/14/24 History celecoxib 200 mg capsule mg 10/02/23 History insulin glargine 100 unit/mL 65 unit subcut DAILY 10/02/23 07/14/24 History subcutaneous solution (Lantus U-100 Insulin) insulin lispro 100 unit/mL subcut 10/02/23 History subcutaneous pen lansoprazole 30 mg capsule,delayed mg 10/02/23 History release lisinopril 10 mg tablet mg 10/02/23 History loperamide 2 mg capsule mg 10/02/23 History magnesium oxide 400 mg (241.3 mg mg 10/02/23 History magnesium) tablet metoprolol succinate 50 mg mg PO 10/02/23 History tablet,extended release 24 hr simvastatin 40 mg tablet mg 10/02/23 History semaglutide 1 mg/dose (4 mg/3 mL) 1 mg subcut QWEEK 11/05/23 07/14/24 History subcutaneous pen injector (Ozempic) gabapentin 300 mg capsule 300 mg PO BID #60 caps 02/28/24 07/14/24 Rx fluoxetine 20 mg capsule 20 mg PO DAILY 04/15/24 07/14/24 History celecoxib 200 mg capsule (Celebrex) 200 mg PO BID PRN pain #60 caps 07/03/24 07/14/24 Rx tizanidine 4 mg tablet mg 07/14/24 History Allergies Allergy/AdvReac Type Severity Reaction Status Date / Time No Known Drug Allergies Allergy Verified 07/14/24 08:36 Exam Narrative Exam Narrative: Psych-alert and oriented x 3. Attentive and appropriate, constitutionally normal, displays normal mood and affect per situation.? There are no obvious deficits in memory, reasoning, or intellect.? Skin-no obvious rashes, bruising, erythema noted to the patient's area of pain. Extremities- extremities are warm with minimal edema and palpable pulses. Lumbar-no significant tenderness to palpation noted in the lumbar spine and paraspinal musculature.? Pain is elicited with extension, and lateral rotation of the lumbar spine. Range of motion is slightly diminished with these motions due to pain. Facet loading maneuvers are positive bilaterally and do appear to be concordant with the patient's normal complaints of pain.? Knee-examination of the bilateral knee reveals tenderness to palpation over the superior, inferior, lateral, and medial aspect of the knee.? Some swelling is noted without erythema. Pain is elicited with flexion and extension of the knee both actively and passively.? Some grinding is noted with these motions.? There is no notable ligamental laxity or instability. Coordination remains intact.? Gait remains non-antalgic. Assessment and Plan Assessment and Plan (1) Lumbar spondylosis: (2) Bilateral knee pain: Qualifiers: Chronicity: chronic Qualified Code(s): M25.561 - Pain in right knee; M25.562 - Pain in left knee; G89.29 - Other chronic pain (3) Bilateral primary osteoarthritis of knee: Plan 68yom who presents for assessment. failed conservative measures, as noted. in terms of low back pain, given significant response to first block, with less robust response with second, i would like to try third medial branch block to confirm one way or another whether we should pursue ablation. he is in agreement. in terms of bilateral knee pain, i will proceed with bilateral knee injections. meds reviewed, no changes. follow up after procedure. Procedure: Bilateral knee injection Medications: Bupivacaine 0.25% 3cc, depomedrol 40mg x2 I explained the details of the procedure to the patient including the risks, benefits and alternatives. We had an informed discussion and the patient verbalized understanding and signed the consent form. All questions were answered appropriately.? A time out was performed.? After obtaining a comfortable seated position, the left knee was prepped with alcohol x3. A syringe containing the above medication was attached to a 25 gauge, 1.5 inch needle under strict aseptic technique. The lateral tibial plateau was palpated.? The needle was then advanced through the subcutaneous tissue in a medial and superior direction towards the joint space.? The contents of the syringe were gently injected without any resistance. The needle was removed and pressure was applied to the injection site to decrease the incidence of ecchymosis and hematoma formation.? A sterile bandage was applied. The same procedure was then completed on the opposite side.
== END 2024-07-21 12:10 | disposition home or self-care (01) ==
LOC: PM 12:09
PROVIDERS: PCP Family Medicine; Visit Provider Anesthesiology
DX: M47.816 Spondylosis without myelopathy or radiculopathy, lumbar region (principal); M25.561 Pain in right knee; M25.562 Pain in left knee; G89.29 Other chronic pain
CPT/HCPCS: 20610; J0665; J1010

== ENCOUNTER 2024-08-04 08:54 | Day surgery (SDC) | payer MEDICARE, SELFPAY ==
[2024-08-04 09:13] VITALS: BP 131/82; PULSE 78; TEMP 36.2; O2SAT 97
[2024-08-04 09:21] LABS: Glucometer 212 mg/dL (74-106)
[2024-08-04 10:02] VITALS: BP 142/93; PULSE 70; O2SAT 96
[2024-08-04 10:03] VITALS: BP 150/89; PULSE 72; O2SAT 94
[2024-08-04] MEDS: BUPIVACAINE HCL 0.25% PF 25 MG/10 ML VIAL 8 ML INJ (10:07)
[2024-08-04] MEDS: LIDOCAINE HCL 2% 400 MG/20 ML MDV INJ (10:07)
--- NOTE | 2024-08-04 10:07 | W.PM.PROCNOT ---
Date of procedure: 08/04/24 Pre-op diagnosis: Pain due to lumbar spondylosis without myelopathy Post-op diagnosis: same as pre-op Procedure: Procedure: Bilateral L3-4, L4-5 medial branch block Medications: Bupivacaine 0.25% 6cc The patient was seen and examined in the preoperative holding area.? An informed consent was obtained and placed on the chart.? The patient was brought to the medical procedure unit and placed in the prone position.? A timeout was completed verifying correct patient, procedure site, positioning, plan, and special equipment.? Using aseptic technique, the needle was placed at left L3. Under direct fluoroscopic visualization a Quincke-tipped spinal needle was advanced to the junction of the superior articulating process with the transverse process at the designated medial branch segment.? Preceded by negative aspiration, the above-mentioned injectate was placed in 1 mL aliquots.? The procedure was repeated at left L4, 5.? The needle was removed and insertion site was covered. The same procedure, at the same levels, was completed on the right side. The patient was taken to the postprocedural recovery area and monitored for an appropriate length of time before found suitable for discharge in the company of a responsible adult. Anesthesia: Local Surgeon: Roma Lopez Pathology: none sent Condition: stable Disposition: no change
== END 2024-08-04 10:10 | disposition home or self-care (01) ==
PROVIDERS: PCP Family Medicine; Visit Provider Anesthesiology
DX: M47.816 Spondylosis without myelopathy or radiculopathy, lumbar region (principal)
CPT/HCPCS: 36415; 64493; 64494; 82948; J0665

== ENCOUNTER 2024-08-07 08:41 | Outpatient (OUT) | payer MEDICARE, SELFPAY ==
--- NOTE | 2024-08-07 09:03 | P.CN_ITS ---
Consult Note: HPI Data of Consult Patient: known to practice within the last 3 years Consult date: 07/21/24 Requesting Physician: Sandra Vu NP Primary Care Provider: Dank Bella MD Consult Narrative Reason for consult: low back pain, bilateral knee pain Narrative: 68yom who presents for assessment. notes persistence of pain throughout low back, as well as bilateral knee pain. knee xrays should severe bilateral knee osteoarthritis. had significant relief >80% with bilateral l3-4, l4-5 medial branch block #1 and #3. preop pain up to 8/10 post op pain 0/10 while anesthetized. lumbar xr shows extensive facet arthropathy. denies adverse med side effects. continue in >6 weeks of provider directed home exercises, without benefit. cc:: CC: Sandra Vu NP Review of Systems ROS Status of ROS 10 or more systems reviewed and unremark able except as noted in history and below Musculoskeletal Reports: back pain PFSH PFSH Medical History Low back pain ?M54.50 - Low back pain, unspecified (ICD-10) Neck pain ?M54.2 - Cervicalgia (ICD-10) Osteoarthritis ?M19.90 - Unspecified osteoarthritis, unspecified site (ICD-10) Anxiety ?F41.9 - Anxiety disorder, unspecified (ICD-10) Heartburn ?R12 - Heartburn (ICD-10) Hiatal hernia ?K44.9 - Diaphragmatic hernia without obstruction or gangrene (ICD-10) Acid reflux ?K21.9 - Gastro-esophageal reflux disease without esophagitis (ICD-10) Prostate cancer ?C61 - Malignant neoplasm of prostate (ICD-10) Enlarged prostate ?N40.0 - Benign prostatic hyperplasia without lower urinary tract symptoms (ICD-10) Diabetes ?E11.9 - Type 2 diabetes mellitus without complications (ICD-10) History of home ventilator ?Z99.11 - Dependence on respirator [ventilator] status (ICD-10) Smoker ?F17.200 - Nicotine dependence, unspecified, uncomplicated (ICD-10) Sleep apnea ?G47.30 - Sleep apnea, unspecified (ICD-10) COPD (chronic obstructive pulmonary disease) ?J44.9 - Chronic obstructive pulmonary disease, unspecified (ICD-10) Heart murmur ?R01.1 - Cardiac murmur, unspecified (ICD-10) Irregular heart beat ?I49.9 - Cardiac arrhythmia, unspecified (ICD-10) High cholesterol ?E78.00 - Pure hypercholesterolemia, unspecified (ICD-10) Hypertension ?I10 - Essential (primary) hypertension (ICD-10) Surgical History S/P foot surgery ?Z98.890 - Other specified postprocedural states (ICD-10) Hx laparoscopic cholecystectomy ?Z90.49 - Acquired absence of other specified parts of digestive tract (ICD- 10) S/P shoulder surgery ?Z98.890 - Other specified postprocedural states (ICD-10) S/P left knee arthroscopy ?Z98.890 - Other specified postprocedural states (ICD-10) History of appendectomy ?Z90.49 - Acquired absence of other specified parts of digestive tract (ICD- 10) Meds Home Medications and Allergies Home Medications ?Medication ?Instructions ?Recorded ?Confirmed ?Type aspirin 81 mg capsule 81 mg PO DAILY 10/02/23 08/04/24 History celecoxib 200 mg capsule mg 10/02/23 History insulin glargine 100 unit/mL 65 unit subcut DAILY 10/02/23 08/04/24 History subcutaneous solution (Lantus U-100 Insulin) insulin lispro 100 unit/mL subcut 10/02/23 History subcutaneous pen lansoprazole 30 mg capsule,delayed mg 10/02/23 History release lisinopril 10 mg tablet mg 10/02/23 History loperamide 2 mg capsule mg 10/02/23 History magnesium oxide 400 mg (241.3 mg mg 10/02/23 History magnesium) tablet metoprolol succinate 50 mg mg PO 10/02/23 History tablet,extended release 24 hr simvastatin 40 mg tablet mg 10/02/23 History semaglutide 1 mg/dose (4 mg/3 mL) 1 mg subcut QWEEK 11/05/23 08/04/24 History subcutaneous pen injector (Ozempic) gabapentin 300 mg capsule 300 mg PO BID #60 caps 02/28/24 08/04/24 Rx fluoxetine 20 mg capsule 20 mg PO DAILY 04/15/24 08/04/24 History tizanidine 4 mg tablet mg 07/14/24 History Allergies Allergy/AdvReac Type Severity Reaction Status Date / Time No Known Drug Allergies Allergy Verified 08/04/24 09:19 Exam Narrative Exam Narrative: Psych-alert and oriented x 3. Attentive and appropriate, constitutionally normal, displays normal mood and affect per situation.? There are no obvious deficits in memory, reasoning, or intellect.? Skin-no obvious rashes, bruising, erythema noted to the patient's area of pain. Extremities- extremities are warm with minimal edema and palpable pulses. Lumbar-no significant tenderness to palpation noted in the lumbar spine and paraspinal musculature.? Pain is elicited with extension, and lateral rotation of the lumbar spine. Range of motion is slightly diminished with these motions due to pain. Facet loading maneuvers are positive bilaterally and do appear to be concordant with the patient's normal complaints of pain.?? There is no notable ligamental laxity or instability. Coordination remains intact.? Gait remains non-antalgic. Assessment and Plan Assessment and Plan (1) Lumbar spondylosis: Assessment and Plan: The patient has had over 3 months of moderate to severe low back pain with functional impairment and inadequate response to conservative care including NSAIDS (unless there are contraindication such as concurrent blood thinners), multiple oral or topical pain medications, and home exercise program/physical therapy.? Patient has completed >6 weeks of guided home exercise program and/or formal physical therapy program without relief of their symptoms.? I have reviewed the imaging of the lumbar spine and no red flags were identified.? The imaging reveals radiographic findings consistent with lumbar spondylosis The Oswestry Disability Index was completed, and the patient scored a 18%.? The patient noted the following:?? moderate pain with standing, walking, lifting, impacts sleep and travel We discussed the risks and benefits of the procedure with the patient, and we are NOT planning on using sedation as outlined in the guidelines from Medicare unless there is a documented reason that sedation would be strongly recommended.?? ?The procedure will be completed with fluoroscopic guidance.? Plan bilateral L3-4 L4-5 facet medial branch RFA continue current medications f/u 1 month after RFA complete
== END 2024-08-07 08:42 | disposition home or self-care (01) ==
PROVIDERS: PCP Family Medicine; Visit Provider Nurse Practitioner
DX: M47.816 Spondylosis without myelopathy or radiculopathy, lumbar region (principal)
CPT/HCPCS: G0463

== ENCOUNTER 2024-08-18 06:45 | Day surgery (SDC) | payer MEDICARE, SELFPAY ==
--- OUTSIDE RECORDS SUMMARY | 2024-08-18 06:51 | XMS_ITS | CCD ---
[facility] Care Team Providers Care Commercial Manager Name Role Phone DANK CAMPO Primary Care Physician MD Dank Campo Primary Care Provider [phone] MD Kike Bernal Attending Provider [phone] Asaad, Imad Unavailable FERNANDO ., MR REBECCA [...] Unavailable ASAAD, IMAD Consulting Unavailable NADERER, DR DNAK Leon Primary Care Unavailable NADERER, DR DANK [...] NADERER, DR DANK Leon Primary Care Unavailable [place], DR SORIN Rodarte Consulting Unavailable NADEREGraciela, DR [...] MD Dank Campo Primary Care Provider KERRI Boswell Attending Provider MD Dank Campo Referring Provider GREGORIA RALPH Referring Unavailable NADERER, DANK Primary Care Unavailable Peterson PETERSEN Attending Unavailable ROSALVA MURO Attending Unavailable ROSALVA MURO Admitting Unavailable Peterson PETERSEN Attending Unavailable DEJUAN PETERSEN Attending Unavailable Peterson PETERSEN Attending Unavailable Peterson PETERSEN Attending Unavailable GREGORIA RALPH Attending Unavailable FELIXERER, DANK Referring Unavailable NADERER, DANK Primary Care Unavailable HANNA BUTCHER Attending Unavailable DANK CAMPO Referring Unavailable NADERER, DANK Primary Care Unavailable Dank Campo MD Primary Care Provider GREGORIA RALPH Referring Unavailable NADERER, DANK Primary Care Unavailable GREGORIA RALPH Referring Unavailable NADERER, DANK Primary Care Unavailable HANNA BTUCHER Attending Unavailable HANNA BUTCHER Referring Unavailable NADERER, DANK Primary Care Unavailable REBECCA DIAS Referring Unavailable NADERER, DANK Primary Care Unavailable Dank Campo MD Primary Care Provider [phone] Rich Alvares APRN Attending Provider Dank Campo Primary Care Unavailable Asaad, Imad Attending Unavailable Asajamia, Imad Admitting Unavailable Naderer, Dank Admitting Unavailable Naderer, Dank Referring Unavailable Naderer, Dank Attending Unavailable Felixerer, Dank Primary Care Unavailable Jyoti Roth Admitting Unavailable Naderer, Dank Primary Care Unavailable Jyoti Roth Attending Unavailable FelixererDank Admitting Unavailable Naderer, Dank Attending Unavailable Felixerer, Dank Primary Care Unavailable Naderer, Dank Primary Care Unavailable Rich Alvares Attending Unavailable Rich Alvares Admitting Unavailable REBECCA DIAS Attending Unavailable PETZNICK, ASHLI Scott Attending Unavailable RUSHER, DEXTER Leon Attending Unavailable NADERER, DANK Referring Unavailable NADERER, DANK Attending Unavailable RUSHER, DEXTER Leon Attending Unavailable RUSHER, DEXTER Leon Attending Unavailable ROTH, JYOTI Attending Unavailable NADERER, DANK Attending Unavailable RUSHER, DEXTER Leon Attending Unavailable PETZNICK, ASHLI Scott Attending Unavailable RUSHER, DEXTER Leon Attending Unavailable NADERER, DANK Attending Unavailable RUSHER, DEXTER Leon Attending Unavailable NADERER, DANK Attending Unavailable PETZNDHARA, ASHLI Scott Attending Unavailable JR. JOON, JOHANNE Vidales Attending Unavaila ble JR. JOON, JOHANNE Vidales Referring Unavaila ble DIAS, REBECCA Cornell Attending Unavailable DIAS, REBECCA Cornell Attending Unavailable PETZNDHARA, ASHLI Scott Attending Unavailable DIAS, REBECCA Cornell Attending Unavailable BERKOWITZ, ALMA Attending Unavailable DIAS, REBECCA J Referring Unavailable VICK, KADEN Attending Unavailable DIAS, REBECCA J Referring Unavailable VICK, KADEN Attending Unavailable DIAS, REBECCA J Referring Unavailable NADERER, DANK Attending Unavailable VALENTINE SIMON Attending Unavailable DIAS, REBECCA J Referring Unavailable RUSHER, DEXTER Leon Attending Unavailable RUSHER, DEXTER Leon Referring Unavailable VICK, KADEN Attending Unavailable DIAS, REBECCA J Referring Unavailable NANDA WARD Attending Unavailable DIAS, REBECCA J Referring Unavailable BERKOWITZ, ALMA Attending Unavailable DIAS, REBECCA J Referring Unavailable BERKOWITZ, ALMA Attending Unavailable DIAS, REBECCA J Referring Unavailable JUSTINA CARRILLO Attending Unavailable DIAS, REBECCA J Referring Unavailable BERKOWITZ, ALMA Attending Unavailable DIAS, REBECCA J Referring Unavailable DIAS, REBECCA Cornell Attending Unavailable VICK, KADEN Attending Unavailable DIAS, REBECCA J Referring Unavailable BERKOWITZ, ALMA Attending Unavailable DIAS, REBECCA J Referring Unavailable MAUREEN THOMPSON Attending Unavailable DIAS, REBECCA Kraig Referring Unavailable lAber RAYMUNDO, Dank Primary Care Provider Alber RAYMUNDO, Dank Primary Care Provider Alber RAYMUNDO, Dank Primary Care Provider Jessica RAYMUNDO, Roma Arteaga Attending Unavailable Jessica RAYMUNDO, Andrius Chandler Attending Unavailable Jessica RAYMUNDO, Piedadrius Chandler Attending Unavailable Jessica RAYMUNDO, Roma Arteaga Attending Unavailable Giedraitis , Roma Arteaga Attending Unavailable Giedraitis , Roma Arteaga Attending Unavailable Gieditis , Roma Arteaga Attending Unavailable Gieditis , Roma Arteaga Attending Unavailable Allergies Allergy Classification Reported Allergen(s) Allergy Type Date of Onset Reaction(s) Facility (1 source) No Known Medication Allergies; Translations: [No Known Medication Allergies] Propensity to adverse reactions (disorder) [facility] Repository Medications Current Medications Medication Drug Class(es) Dates Sig (Normalized) Sig (Original) amoxicillin 875 mg oral tablet (2 sources) Penicillin-class Antibacterial Start: 07-28-2024 take 1 tablet by mouth twice daily amoxicillin (Amoxil) 875 MG tablet TAKE 1 TABLET BY MOUTH TWICE DAILY UNTIL GONE 07/28/2024 Active aspirin 81 mg delayed release oral tablet [...] Status: Ordered Start: 01-30-2019 End: 06-25-2024 take 1 tablet by mouth three times daily Baclofen 20 mg Tablet Discontinued 20 MG PO Three times daily January 29, 2019 11:00pm March 17, 2024 9:20am celecoxib 200 mg oral capsule (20 sources) Nonsteroidal Anti-inflammatory Drug Start: 03-31-2019 celecoxib Oral, Refills(s) 0 Start Date: 03/31/19 Status: Ordered Start: 01-30-2019 take 1 capsule by [facility] twice daily celecoxib (CeleBREX) 200 MG capsule Indications: Lumbago with sciatica, right side TAKE 1 CAPSULE BY MOUTH TWICE DAILY 60 capsule 5 01/07/2024 Active Continuous Blood Gluc Sensor (Dexcom G7 Sensor) mis (20 sources) Start: 06-05-2023 End: 06-04-2024 Continuous Blood Gluc Sensor (Dexcom G7 Sensor) [facility] [place] Indications: Type 2 diabetes mellitus with diabetic polyneuropathy, with long-term current use of insulin ([facility]) Inject 1 Device under the skin See administration instructions Change every 10 days 9 each 3 06/05/2023 06/04/2024 Active Continuous Blood Gluc Sensor (FreeStyle Cornelius 2 Sensor) mis (2 sources) Start: 05-23-2023 End: 07-30-2023 Continuous Blood Gluc Sensor (FreeStyle Cornelius 2 Sensor) [facility] [place] Indications: Type 2 diabetes mellitus with diabetic polyneuropathy, with long-term current use of insulin ([facility]) Use as directed 2 each 11 05/23/2023 07/30/2023 Discontinued (Therapy completed) Continuous Glucose Sensor (Dexcom G7 Sensor) [facility] [place] (17 sources) Start: 06-13-2024 Continuous Glu cose Sensor (Dexcom G7 Sensor) [facility] [place] Indications: Type 2 diabetes mellitus with diabetic polyneuropathy, with long-term current use of insulin ([facility]) USE DIRECTED to check BLOOD SUGAR *change EVERY TEN days * 9 each 3 06/13/2024 Active cyclobenzaprine (20 sources) Muscle Relaxant Start: 04-15-2024 cyclobenzaprin e Active PO April 14, 2024 11:00pm Start: 04-15-2024 cyclobenzaprin e Active PO April [...] MG tablet Indications: JARAD (generalized anxiety disorder) ([facility]) Take 1 tablet (5 mg) by mouth [...] MG capsule Indications: JARAD (generalized anxiety disorder) (CMS/[facility]) Take 1 capsule (40 mg) by mouth Daily 90 capsule 3 05/28/2024 Active Start: 10-30-2023 End: 05-28-2024 take 1 capsule by mouth in the morning FLUoxetine (PROzac) 20 mg capsule Take 1 capsule (20 mg total) by mouth in the morning. 01/07/2024 Active fluticasone 0.05 mg/inh Nasal [place] (5 sources) Start: 07-28-2019 fluticasone 0. 05 mg/inh Nasal [place] Nasal, Daily, Refill(s) 0 Start Date: 07/28/19 Status: Ordered gabapentin 300 mg oral capsule (20 sources) Anti-epilepti c Agent Start: 07-13-2024 take 1 capsule by mouth in the morning gabapentin (Neurontin) 300 MG capsule Take 300 mg by mouth in the morning and 300 mg before bedtime. 07/13/2024 Active Start: 04-15-2024 gabapentin Act peter PO April 14, 2024 11:00pm Start: 04-15-2024 gabapentin Act peter PO April 15, 2024 12:00am End: 07-31-2024 gabapentin (Neurontin) 100 M G capsule Take by mouth 07/31/2024 Discontinued 3 ml insulin glargine 100 unt/ml pen injector (20 sources) Insulin Analog Start: 07-31-2024 End: 07-31-2025 insulin glargine (Lantus SoloStar) 100 UNIT/ML pen Indications: Type 2 diabetes mellitus with diabetic polyneuropathy, with long-term current use of insulin (CMS/HCC) Inject 70 Units under the skin at bedtime 60 mL 3 07/31/2024 07/31/2025 Active Start: 04-29-2024 End: 04-29-2025 insulin glargine (Lantus Pia oStar) 100 UNIT/ML pen Indications: Type 2 diabetes mellitus with diabetic polyneuropathy, with long-term current use of insulin (CMS/HCC) Inject 65 Units under the skin at bedtime 60 mL 3 04/29/2024 07/31/2024 Discontinued (Dose adjustment) Start: 08-09-2023 End: 08-08-2024 insulin glargine (Lantus Pia oStar) 100 UNIT/ML pen Indications: Type 2 diabetes mellitus with diabetic polyneuropathy, with long-term current use of insulin (CMS/[facility]) Inject 60 Units under the [...] polyneuropathy, with long-term current use of insulin (CMS/[facility]) Inject 60 Units under the skin at bedtime 30 mL 3 07/30/2023 Active 3 ml insulin lispro 100 unt/ml pen injector (20 sources) Insulin Analog Start: 07-31-2024 insulin lispro (HumaLOG) 100 UNIT/ML injection Indications: Type 2 diabetes mellitus with diabetic polyneuropathy, with long-term current use of insulin (CMS/HCC) INJECT 18 UNITS BREAKFAST/LUNCH, 35 units DINNER PLUS CORRECTIONS OF 1:30 > 150MG/DL ( MAX 100 UNITS A DAY) 90 mL 3 07/31/2024 Active Start: 07-31-2024 insulin lispro (HumaLOG) 100 UNIT/ML injection Indications: Type 2 diabetes mellitus with diabetic polyneuropathy, with long-term current use of insulin (CMS/HCC) INJECT 18 UNITS BREAKFAST/LUNCH, 35 units DINNER PLUS CORRECTIONS OF 1:30 > 150MG/DL ( MAX 100 UNITS A DAY) 90 mL 3 07/31/2024 Active Start: 04-29-2024 End: 07-31-2024 insulin lispro (HumaLOG) 100 UNIT/ML injection Indications: Type 2 diabetes mellitus with diabetic polyneuropathy, with long-term current use of insulin (CMS/HCC) INJECT 12 UNITS BREAKFAST, 25 UNITS LUNCH/ DINNER PLUS CORRECTIONS OF 1:30 > 150MG/DL ( MAX 100 UNITS A DAY) 90 mL 3 06/16/2024 07/31/2024 Discontinued (Dose adjustment) Start: 03-17-2024 insulin lispro (HumaLOG) 100 UNIT/ML [...] the skin. Active HumaLOG Active Insulin Lispro 100 unit/mL insulin pen (2 sources) Start: 04-27-2023 inject 1 dose by subcutaneous injection once before mealtime Insulin Lispro 100 unit/mL insulin pen Active 1 sliding scale dose SUBCUT 3x/Day before meals April 27, 2023 12:00am Insulin Lispro KwikPen 100 units/mL injectable solution (1 source) Start: 02-12-2023 Insulin Lispro KwikPen 100 units/mL injectable solution Refills(s) 0 Start Date: 02/12/23 Status: Ordered ketoconazole 20 mg/ml topical cream (5 sources) Azole Antifungal Start: 08-09-2023 Ketoconazole 2 % cream Active 1 APPLIC TOPICAL Twice daily August 09, 2023 12:00am lisinopril 10 mg oral tablet (20 sources) Angiotensin Converting Enzyme Inhibitor Start: 06-12-2024 End: 07-23-2025 take 1 tablet by mouth in the morning lisinopril 10 MG tablet Indications: Essential (primary) hypertension (CMS/HCC) Take 1 tablet (10 mg) by mouth in the morning and 1 tablet (10 mg) before bedtime. 180 tablet 3 07/23/2024 07/23/2025 Active Start: 12-18-2023 End: 04-23-2024 take 1 [...] 01-30-2019 take 1 tablet by maciej th once daily Lisinopril 10 mg Tablet Active 10 MG PO Daily January 29, [...] tablet Orally BID for 30 day(s) Active magnesium oxide 400 mg oral tablet (20 sources) Start: 08-09-2023 take 1 tablet by mouth once daily magnesium oxide (Mag-Ox) 400 (240 Mg) MG tablet Indications: Hypomagnesemia TAKE 1 TABLET BY MOUTH DAILY 30 tablet 5 07/21/2024 Active Start: 06-20-2023 take 1 tablet by maciej th once daily magnesium oxide (Mag-Ox) 400 (240 Mg) MG tablet Indications: Hypomagnesemia TAKE 1 TABLET BY MOUTH DAILY 30 tablet 5 06/20/2023 Active metFORMIN (19 sources) Biguanide Start: 03-31-2019 metformin Oral , Refills(s) 0 Start Date: 03/31/19 Status: Ordered Start: 01-30-2019 End: 08-15-2023 take 1 tablet by mouth three times daily Metformin 850 mg Tablet Discontinued 850 MG PO Three times daily [...] Start: 01-30-2019 take 1 capsule by mo [facility] once daily Metoprolol Succinate 50 mg Capsule,Sprinkle,Er 24hr Active 50 MG PO Daily January 29, [...] PO Daily July 24, 2022 12:00am Semaglutide (5 sources) Start: 08-09-2023 Semaglutide (O zempic) 0.25 mg or 0.5 mg (2 mg/3 mL) pen injector Active 1 MG SUBCUT every week August 09, 2023 12:00am takes on Sunday Start: 08-09-2023 Semaglutide (O [...] Date: 03/31/19 Status: Ordered Start: 01-30-2019 End: 07-23-2025 take 1 tablet by mouth at bedtime simvastatin (Zocor) 40 MG tablet Indications: Hyperlipidemia, unspecified (CMS/HCC) Take 1 tablet (40 mg) by mouth at bedtime 90 tablet 3 07/23/2024 07/23/2025 Active spironolactone 50 mg oral tablet (20 sources) Aldosterone Antagonist Start: 12-18-2023 take 1 tablet by mouth once daily spironolactone (Aldactone) 50 MG tablet Indications: Localized edema TAKE 1 TABLET BY MOUTH DAILY 30 tablet 5 12/18/2023 Active Start: 04-27-2023 End: 10-30-2023 take 1 tablet by mouth once daily Spironolactone 50 mg tablet Discontinued 50 MG PO Daily April 27, 2023 12:00am October 30, 2023 12:56pm 1 ml tildrakizumab-asmn 100 mg/ml prefilled syringe [...] 5 days 20 tablet 04/24/2024 04/29/2024 Discontinued [id number] 200 actuat albuterol 0.09 mg/actuat metered dose inhaler (2 sources) beta2-Adrenergic Agonist Start: 12-22-2020 End: 08-15-2023 take 2 puff(s) by inhalation every four hours as needed for wheezing albuterol (PROVENTIL HFA;VENTOLIN HFA) 90 mcg/actuation inhaler Indications: Chronic obstructive pulmonary disease, unspecified COPD type ([facility]-HCC) Inhale 2 puffs every 4 (four) hours as needed for wheezing. 18 g 11 12/22/2020 08/15/2023 Discontinued (Discontinued by another clinician) clindamycin 300 mg oral capsule (5 sources) Lincosamide Antibacterial Start: 01-28-2021 take 2 capsules by mouth every twelve hours Clindamycin HCl 300 MG 2 capsules Orally bid for 10 day(s) Jan, Not-Taking dibucaine 0.01 mg/mg rectal ointment (9 sources) Standardized Chemical Allergen Start: 12-08-2020 End: 03-14-2021 Dibucaine 1 % ointment Discontinued 1 APPLIC [place] Four times daily as needed for rectal discomfort 56 December 07, 2020 11:00pm March 14, 2021 11:08am dicyclomine hydrochloride 20 mg oral tablet (9 sources) Anticholinergic Start: 02-11-2020 End: 12-08-2020 take 1 tablet by mouth three times daily Dicyclomine 20 mg Tablet Discontinued 20 MG PO Three times daily February 10, 2020 11:00pm December 08, 2020 8:09am docusate sodium 100 mg oral capsule (9 sources) Start: 12-08-2020 End: 03-14-2021 take 1 capsule by mouth once daily as needed Docusate Sodium (Sof-Lax) 100 mg capsule Discontinued 100 MG PO Daily as needed for hard stool 60 December 08, 2020 9:33am March 14, 2021 11:08am fluticasone propionate 0.05 mg/actuat metered dose nasal spray (20 sources) Corticosteroid Start: 02-11-2020 End: 07-24-2022 Fluticasone Propionate (Flonase Allergy Relief) 50 mcg/actuation [place],Suspension Discontinued 1 SPRAY INTRANASAL Daily February 10, 2020 11:00pm July 24, 2022 12:24pm Start: 07-28-2019 fluticasone 0. 05 mg/inh Nasal [place] Nasal, Daily, Refill(s) 0 Start Date: 07/28/19 Status: Ordered Start: 06-30-2019 End: 02-25-2024 take 2 spray(s) nasal route once daily fluticasone propionate (FLONASE) 50 mcg/actuation nasal spray Administer 2 sprays into each nostril daily. 15.8 mL 12 06/30/2019 02/25/2024 Discontinued (Therapy completed) take 1 spray(s) nasa l route once daily Flonase 50 MCG/ACT 1 spray in each nostril Nasally Once a day Not-Taking furosemide 40 mg oral tablet (13 sources) Loop Diuretic Start: 12-18-2022 End: 10-30-2023 take 1 tablet by mouth once daily Furosemide 40 mg tablet Discontinued 40 MG PO Daily April 27, 2023 12:00am October 30, 2023 12:48pm Furosemide Activ e glipiZIDE 10 mg oral tablet (9 sources) Sulfonylurea Start: 01-30-2019 End: 08-18-2020 take 1 tablet by mouth once daily Glipizide 10 mg Tablet Discontinued 10 MG PO Daily January 29, 2019 11:00pm August 18, 2020 11:28am lansoprazole 30 mg delayed release oral capsule (20 sources) Proton Pump Inhibitor Start: 03-31-2019 lansoprazole Oral, Daily, Refills(s) 0 Start Date: 03/31/19 Status: Ordered Start: 01-30-2019 End: 03-17-2024 take 1 capsule by mouth twice daily Lansoprazole 30 mg capsule,delayed release(DR/EC) Discontinued 30 MG PO Twice daily 60 30 March 04, 2024 1:43pm March 17, 2024 9:40am Start: 01-30-2019 take 30 mg by mouth once daily Lansoprazole Active 30 MG PO Daily January 29, 2019 11:00pm loperamide hydrochloride 2 mg oral capsule (20 sources) Opioid Agonist Start: 04-27-2023 End: 03-03-2024 take 2 mg by mouth every two hours Loperamide Active 2 MG PO Q2H April 27, 2023 12:00am Start: 12-10-2019 End: 03-27-2024 take 1 capsule by mouth twice daily as needed for diarrhea Loperamide 2 mg capsule Discontinued 2 MG PO Twice daily as needed for Diarrhea April 27, 2023 12:00am March 27, 2024 8:18am loratadine 10 mg oral tablet (9 sources) Start: 12-08-2020 End: 03-14-2021 take 1 tablet by mouth once daily as needed Loratadine (Claritin) 10 mg Tablet Discontinued 10 MG PO Daily as needed for Allergy Symptoms December 07, 2020 11:00pm March 14, 2021 11:08am Magnesium (9 sources) Start: 01-30-2019 End: 08-09-2023 take 2 tablets by mouth once daily Magnesium 200 mg Tablet Discontinued 400 MG PO Daily January 29, 2019 11:00pm August 09, 2023 11:10am Start: 01-30-2019 End: 08-09-2023 take 400 mg [...] day(s) Not-Taking oxaprozin 600 mg oral tablet (8 sources) Nonsteroidal Anti-inflammatory Drug Start: 04-27-20 End: 08-09-19 take 1 tablet by mouth four times daily Oxaprozin 600 mg tablet Discontinued 600 MG PO Four times daily [...] Active pyridostigmine bromide 60 mg oral tablet (9 sources) Start: 01-30-2019 End: 08-18-2020 take 1 tablet by mouth three times daily Pyridostigmine [place] 60 mg Tablet Discontinued 60 MG PO Three times daily January 29, 2019 11:00pm August 18, 2020 11:30am Semaglutide (Rybelsus) 14 mg tablet (5 sources) Start: 07-24-2022 End: 08-09-2023 take 1 [...] 2023 11:01am sucralfate 1000 mg oral tablet (9 sources) Aluminum Complex Start: 02-11-2020 End: 03-14-2021 take 1 tablet by mouth before mealtime Sucralfate 1 gram Tablet Discontinued 1 GM PO before meals February 10, 2020 11:00pm March 14, 2021 11:09am tamsulosin hydrochloride 0.4 mg oral capsule (11 sources) alpha-Adrenergi c Nirav Start: 01-30-2019 End: 03-14-2021 take 1 capsule by mouth once daily Tamsulosin 0.4 mg Capsule Discontinued 0.4 MG PO Daily January 29, 2019 11:00pm March 14, 2021 11:09am End: 08-15-2023 take 1 capsule by mouth twice daily tamsulosin (FLOMAX) 0.4 mg capsule Take 0.4 mg by mouth 2 (two) times a day. 0 08/15/2023 Discontinued (Discontinued by another clinician) zolpidem tartrate 5 mg oral tablet (5 sources) gamma-Aminobutyric Acid-ergic Agonist Start: 12-06-2023 End: 02-25-2024 take 1 tablet by mouth once daily as needed for sleep zolpidem (AMBIEN) 5 mg tablet Indications: Obstructive sleep apnea syndrome Take 1 tablet (5 mg total) by mouth nightly as needed for sleep. 1 tablet 12/06/2023 02/25/2024 Discontinued (Therapy completed) Problems Active Problems Problem Classification Problem Date Documented Da te Episodic/Chronic Abdominal pain (2 sources) Indigestion; Translations: [Epigastric pain] 04-15-2024 Episodic Acute and unspecified renal failure (20 sources) Renal failure syndrome; Translations: [Unspecified kidney failure] Onset: 9 12-04-2022 Chronic Anxiety disorders (20 sources) Generalized anxiety disorder; Translations: [Generalized anxiety disorder] Onset: 4 10-11-2023 Chronic Biliary tract disease (9 sources) Common bile duct calculus; Translations: [Calculus [...] 0 12-04-2022 Chronic Deficiency and other anemia (14 sources) Iron deficiency anemia; Translations: [Iron deficiency [...] [Chronic fatigue, unspecified] Onset: 4 10-04-2023 Chronic Osteoarthritis (20 sources) Arthritis of left knee; Translations: [Unilateral primary osteoarthritis, left knee] Onset: 3 12-04-2022 Chronic Other aftercare (1 source) Other skilled nursing (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 therapy; Translations: [[employer] APPLICATOR CURRENT DRUG THERAPY] Onset: 3 Episodic Other [...] syndrome with diarrhea] Chronic Other gastrointestinal disorders (1 source) Irritable bowel syndrome; Translations: [Irritable bowel syndrome without diarrhea] 07-30-2024 Chronic Other gastrointestinal disorders (1 source) Irritable bowel syndrome without diarrhea; Translations: [Irritable bowel syndrome] 07-30-2024 Chronic Other gastrointestinal disorders (9 sources) Acquired arteriovenous malformation; Translations: [Angiodysplasia of colon with hemorrhage] 09-02-2020 Episodic Other gastrointestinal disorders (14 sources) Dysphagia; Translations: [Dysphagia, unspecified] 01-30-2019 Episodic Other gastrointestinal disorders (14 sources) Diarrhea; Translations: [Diarrhea, unspecified] 01-30-2019 Episodic Other gastrointestinal disorders (5 sources) Esophageal dysphagia; Translations: [Dysphagia, unspecified] Episodic Other gastrointestinal disorders (7 sources) Diarrhea, unspecified; Translations: [Diarrhea] Onset: 3 Episodic Other gastrointestinal disorders (1 source) Dysphagia, unspecified Episodic Other gastrointestinal disorders (2 sources) Other specified symptoms and signs involving the digestive system and abdomen; Translations: [Other specified symptoms and signs involving the digestive system and abdomen] Onset: 5 Episodic Other gastrointestinal disorders (3 sources) Constipation alternates with diarrhea; Translations: [Other specified [...] obesity due to excess calories] Onset: 3 Resolved: 5 07-30-2023 Chronic Other screening for suspected conditions (not mental disorders or infectious disease) (10 sources) Raised prostate specific antigen; Translations: [Elevated prostate specific antigen [PSA]] Onset: 2 08-05-2021 Episodic Other upper respiratory disease (20 sources) Allergic rhinitis; Translations: [Allergic rhinitis, unspecified] Onset: 3 12-04-2022 Chronic Other upper respiratory disease (20 sources) Rhinitis medicamentosa; Translations: [Chronic rhinitis] Onset: 3 12-04-2022 Chronic Residual codes; unclassified (3 sources) Obstructive sleep apnea (adult) (pediatric); Translations: [Obstructive sleep apnea (adult) (pediatric)] Onset: 4 Chronic Residual codes; unclassified (3 sources) Primary central sleep apnea; 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] Onset: 4 Chronic Residual codes; unclassified (1 source) Sleep apnea Onset: 4 Chronic Residual codes; unclassified (20 sources) Obstructive sleep apnea syndrome; Translations: [Obstructive sleep apnea (adult) (pediatric)] Onset: 4 10-04-2023 Chronic Residual codes; unclassified (20 sources) Hypersomnia; Translations: [Hypersomnia, unspecified] Onset: 4 10-04-2023 Chronic Residual codes; unclassified (2 sources) Central sleep apnea syndrome; 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] 12-13-2023 Chronic Residual codes; unclassified (1 source) Other [...] Translations: [Anemia, unspecified] Onset: 12-04-2022 01-19-2019 Episodic Genitourinary symptoms and ill-defined conditions (20 sources) Nocturia; Translations: [Proteinuria] Onset: 12-04-2022 03-31-2019 Episodic Headache; including migraine (20 sources) Migraine; Translations: [Migraine, unspecified, not intractable, without status migrainosus] Onset: 12-04-2022 Resolved: 06-07-2023 01-19-2019 Chronic Malaise and fatigue (20 sources) Fatigue; Translations: [Other fatigue] Onset: 11-19-2018 12-04-2022 Episodic Mood disorders (14 sources) Mood disorders Onset: 06-29-2020 06-29-2020 Nausea and vomiting (1 source) Vomiting, unspecified; Translations: [Vomiting, unspecified] Onset: 08-22-2023 Episodic Other aftercare (20 sources) Long-term current use of insulin; Translations: [configurator (current) use of insulin] Onset: 12-04-2022 12-04-2022 Episodic Other aftercare (20 sources) Long-term current use of drug therapy; Translations: [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 technician (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 therapy] Onset: 08-29-2023 08-29-2023 Episodic Other aftercare (2 sources) Patient encounter status; Translations: [Other skilled nursing (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 therapy] Onset: 08-29-2023 08-29-2023 Episodic [...] Onset: 06-07-2023 06-07-2023 Episodic Residual codes; unclassified (20 sources) Memory impairment; Translations: [Other amnesia] Onset: 10-04-2023 10-04-2023 Episodic Residual codes; unclassified (20 sources) Family history of Parkinson's disease; Translations: [Family history of epilepsy and other diseases of the nervous system] Onset: 10-09-2023 10-09-2023 Episodic Screening and history of mental health and substance abuse codes (4 sources) Personal history of nicotine dependence; Translations: [Tobacco use and exposure - finding] Onset: 08-15-2023 08-15-2023 Episodic Spondylosis; intervertebral disc disorders; other back problems (20 sources) Lumbar radiculopathy; Translations: [Radiculopathy, lumbar region] Onset: 10-09-2023 10-09-2023 Episodic Substance-related disorders (20 sources) Cigarette smoker ; Translations: [Nicotine dependence, cigarettes, uncomplicated] Onset: 12-04-2022 Resolved: 06-07-2023 10-06-2019 Chronic Results Test Name Value Interpretation Reference Range Facility HbA1c (Bld) [Mass fraction]o n 07-31-2024 Interpretation and review of laboratory results Abnormal [facility] - Hematology and Cell countson 07-31-2024 HbA1c (Bld) [Mass fraction] 9.4 % [facility] X-ray reportOrdered By: Tico Mckeon on 07-30-[address] [facility] Main [address] [address] XRay Report Signed Patient: Milad Seymour MR#: [id number] : 1955 Acct:[id number] Age/Sex: 68 / M ADM Date: 5 Loc: XD Room: Type: [facility] CLI Attending Dr: Rich Alvares MASTER GLAZIER Copies to: Rich Alvares APRN~ Ordering Provider: Rich Alvares APRN Date of Service: 07/30/24 XR/XR KUB: R19.8 - Other specified symptoms and signsinvolving the ... KUB: CLINICAL INFORMATION: Abnormal bowel movements alternating constipation and diarrhea COMPARISON: None FINDINGS: Nonspecific nonobstructive bowel gas pattern. Right upper quadrant surgical clips. No definite free air. No soft tissue calculations. Scattered degenerative changes. XR/XR KUB IMPRESSION: Nonspecific nonobstructive bowel gas pattern Impression dictated by: Osvaldo Mckeon M.D.07/30/2024 11:41 PM Dictation Location: [place] [address] Transcribed By: WOODY 07/30/24 234 Dictated By: Osvaldo Mckeon MD 07/30/24 233 Signed By: 07/30/24 [facility] Work Phone: XR KUBon 07-30-[address] [facility] [place] [address] XRay Report Signed Patient: Milad Seymour MR#: [id number] : 1955 Acct:[id number] Age/Sex: 68 / M ADM Date: 07/30/24 Loc: XD Room: Type: [facility] CLI Attending Dr: Rich Alvares MASTER GLAZIER Copies to: Rich Alvares APRN Ordering Provider: Rich Alvares APRN Date of Service: 07/30/24 XR/XR KUB: R19.8 - Other specified symptoms and signs involving the ... KUB: CLINICAL INFORMATION: Abnormal bowel movements alternating constipation and diarrhea COMPARISON: None FINDINGS: Nonspecific nonobstructive bowel gas pattern. Right upper quadrant surgical clips. No definite free air. No soft tissue calculations. Scattered degenerative changes. XR/XR KUB IMPRESSION: Nonspecific nonobstructive bowel gas pattern Impression dictated by: Osvaldo Mckeon M.D.07/30/2024 11:41 PM Dictation Location: [facility] Transcribed By: WOODY 07/30/24 2341 Dictated By: Osvaldo Mckeon MD 07/30/24 8298 Signed By: 07/30/24 2341 Normal [facility] XR Foot - left 3 [facility] Result: 3 vi ews left foot: Weight-bearing: DP, oblique, lateral: 05/29/2024: Unremarkable for fracture or stress fracture changes. Unremarkable for acute osseous or joint pathology. Incidental findings include os peroneum within the cuboid groove; enthesophyte formation at the 5th metatarsal styloid. [facility] Radiology Study observation (narrative) [facility] HbA1c (Bld) [Mass fraction]o n 04-29-2024 Interpretation and review of laboratory results Normal [facility] - Hematology and Cell countson 04-29-2024 HbA1c (Bld) [Mass fraction] 7.9 % [facility] ALL CBC WITH AUTO DIFFon BASOPHILS ABSOLUTE AUTO 0.1 [facility] Basophils/100 WBC (Bld) 0.6 % 0.2 - 2.0 % [facility] Eosinophils/100 WBC (Bld) 1.8 % 0.9 - 7.0 % [facility] Erythrocyte distribution width (RBC) [Ratio] 12.8 % 11.0 - 15.0 % [facility] Hematocrit (Bld) [Volume fraction] 40.7 % Low 42.0 - 54.0 % [facility] Hemoglobin (Bld) [Mass/Vol] 13.6 g/dL Low 14.0 - 18.0 g/dL [facility] IMMATURE GRANULOCYTES ABS AUTO 0.1 High [facility] Immature granulocytes/100 WBC (Bld) 1.2 % High 0.0 - 0.5 % [facility] Interpretation and review of laboratory results Abnormal [facility] LYMPHOCYTES ABSOLUTE AUTO 2 [facility] Lymphocytes/100 WBC (Bld) 24.2 % 20.5 - 60.0 % [facility] MCH (RBC) [Entitic mass] 30.6 pg 25.9 - 34.0 pg [facility] MCHC (RBC) [Mass/Vol] 33.4 g/dL 29.9 - 35.2 g/dL [facility] MCV (RBC) [Entitic vol] 91.7 fL 80.0 - 94.0 fL [facility] MONOCYTES ABSOLUTE AUTO 0.5 [facility] Monocytes/100 WBC (Bld) 6.3 % 1.7 - 12.0 % [facility] NEUTROPHILS ABSOLUTE AUTO 5.4 [facility] Neutrophils/100 WBC (Bld) 65.9 % 43.0 - 75.0 % [facility] Platelet mean volume (Bld) [Entitic vol] 9 fL Low 9.5 - 13.5 fL [facility] TBH EO # 0.2 [facility] TB PLT 143 Low [facility] TB RBC 4.44 Low [facility] WBC 8.2 [facility] BASIC METABOLIC PANLon 03-18 Anion gap [Moles/Vol] 9 mmol/L Normal 5-15 [facility] Comment on above: Performed By: #### C BCA BMP, PINR #### [facility] ([id number]) [address], [address] [place] [address] Calcium [Mass/Vol] 9.7 mg/dL Normal 8.5-10.5 [facility] Comment on above: Performed By: #### C FLIP, BMP, PINR #### [facility] ([id number]) [address], [address] [place] [address] Chloride [Moles/Vol] 99 mmol/L Normal 98-109 [facility] Comment on above: Performed By: #### Flash BCA, BMP, PINR #### [facility] ([id number]) [address], [address] [place] [address] CO2 [Moles/Vol] 23 mmol/L Normal 22-32 [facility] Comment on above: Performed By: #### C BCA, BMP, PINR #### [facility] ([id number]) [address], [address] [place] [address] Creatinine [Mass/Vol] 1.60 mg/dL High 0.60-1.30 [facility] Comment on above: Result Comment: METH OD TRACEABLE TO IDMS STANDARD Performed By: #### C TORI CASTELAN, PINR #### [facility] ([id number]) [address] [address] [place] [address] GFR/1.73 sq M.predicted among non-blacks MDRD (S/P/Bld) [Vol rate/Area] 47 mL/min/{1.73_m2} Low >59 [facility] Comment on above: Result Comment: Reported eGFR is based on the CKD-EPI 2020 equation that does not use a race coefficient. Performed By: #### C FLIP BMP, PINR #### [facility] ([id number]) [address] [address] [place] [address] Glucose [Mass/Vol] 210 mg/dL High 65-99 [facility] Comment on above: Performed By: #### C TORI CASTELAN, PINR #### [facility] ([id number]) [address] [address] [place] [address] Potassium [Moles/Vol] 5.9 mmol/L High 3.5-5.0 [facility] Comment on above: Performed By: #### C FLIP BMP, PINR #### [facility] ([id number]) [address] [address] [place] [address] Sodium [Moles/Vol] 131 mmol/L Low 134-146 [facility] Comment on above: Performed By: #### C FLIP BMP, PINR #### [facility] ([id number]) [address] [address] [place] [address] Urea nitrogen [Mass/Vol] 55 mg/dL High 5-27 [facility] Comment on above: Performed By: #### C BCA, BMP, PINR #### [facility] ([id number]) [address] [address] [place] [address] CBC AND AUTO DIFFon 03-18-20 24 ABSOLUTE BASOPHIL 0.1 X10E9/L Normal 0.0-0.2 [facility] Comment on above: Performed By: #### C TORI CASTELAN, PINR #### [facility] ([id number]) [address] [place] [address] ABSOLUTE NEUTROPHIL 10.1 X10E9/L High 1.5-6.6 [facility] Comment on above: Performed By: #### C TORI CASTELAN, PINR #### [facility] ([id number]) [address] [address] [place] [address] Basophils/100 WBC (Bld) 0.4 % Normal [facility] Comment on above: Performed By: #### C TORI CASTELAN, PINR #### [facility] ([id number]) [address] [address] [place] [address] Eosinophils (Bld) [#/Vol] 0.1 10*3/uL Normal 0.0-0.4 [facility] Comment on above: Performed By: #### C TORI CASTELAN, PINR #### [facility] ([id number]) [address] [address] [place] [address] Eosinophils/100 WBC (Bld) 0.5 % Normal [facility] Comment on above: Performed By: #### C TORI CASTELAN, PINR #### [facility] ([id number]) [address] [place] [address] Erythrocyte distribution width (RBC) [Ratio] 14.1 % Normal 11.5-15.0 [facility] Comment on above: Performed By: #### C TORI CASTELAN, PINR #### [facility] ([id number]) [address] [address] [place] [address] Hematocrit (Bld) [Volume fraction] 42.0 % Normal 39-49 [facility] Comment on above: Performed By: #### C TORI CASTELAN, PINR #### [facility] ([id number]) [address], [facility] [address] [place] [address] Hemoglobin (Bld) [Mass/Vol] 14.3 g/dL Normal 13.0-17.0 [facility] Comment on above: Performed By: #### C TORI CASTELAN, PINR #### [facility] ([id number]) [address], [facility] [address] [place] [address] Lymphocytes (Bld) [#/Vol] 1.8 10*3/uL Normal 1.0-3.5 [facility] Comment on above: Performed By: #### C TORI CASTELAN, PINR #### [facility] ([id number]) [address] [address] [place] [address] Lymphocytes/100 WBC (Bld) 14.1 % Normal [facility] Comment on above: Performed By: #### C TORI CASTELAN, PINR #### [facility] ([id number]) [address] [address] [place] [address] MCH (RBC) [Entitic mass] 31.7 pg Normal 27-34 [facility] Comment on above: Performed By: #### C FLIP BMP, PINR #### [facility] ([id number]) [address] [address] [place] [address] MCHC (RBC) [Mass/Vol] 34.0 g/dL Normal 32-36 [facility] Comment on above: Performed By: #### C TORI CASTELAN, PINR #### [facility] ([id number]) [address] [address] [place] [address] MCV (RBC) [Entitic vol] 93 fL Normal 80-100 [facility] Comment on above: Performed By: #### C FLIP, BMP, PINR #### [facility] ([id number]) [address], [facility] [address] [place] [address] Monocytes (Bld) [#/Vol] 0.5 10*3/uL Normal 0-0.9 [facility] Comment on above: Performed By: #### C TORI CASTELAN, PINR #### [facility] ([id number]) [address] [place] [address] Monocytes/100 WBC (Bld) 4.1 % Normal [facility] Comment on above: Performed By: #### C FLIP, BMP, PINR #### [facility] ([id number]) [address], [facility] [address] [place] [address] Neutrophils/100 WBC (Bld) 80.9 % Normal [facility] Comment on above: Performed By: #### Flash CASTELAN BMP, PINR #### [facility] ([id number]) [address], [address] [place] [address] Platelet mean volume (Bld) [Entitic vol] 7.4 fL Normal 7-12 [facility] Comment on above: Performed By: #### TORI [place] BCA, PINR #### [facility] ([id number]) [address], [address] [place] [address] Platelets (Bld) [#/Vol] 171 10*3/uL Normal 150-450 [facility] Comment on above: Performed By: #### TORI [place] BCA, PINR #### [facility] ([id number]) [address], [address] [place] [address] RBC COUNT 4.51 X10E12/L Normal 4.10-5.70 [facility] Comment on above: Performed By: #### C FLIP, BMP, PINR #### [facility] ([id number]) [address], [address] [place] [address] WBC (Bld) [#/Vol] 12.5 10*3/uL High 4.0-11.0 [facility] Comment on above: Performed By: #### C BCA, BMP, PINR #### [facility] ([id number]) [address] [place] [address] CBC W Auto Differential pane l (Bld)on 03-18-2024 ABSOLUTE BASOPHIL 0.1 [facility] Comment on above: PERFORMED AT [facility] [address],[place] [address] Basophils/100 WBC (Bld) 0.4 % [facility] Eosinophils (Bld) [#/Vol] 0.1 10*3/uL [facility] Eosinophils/100 WBC (Bld) 0.5 % [facility] Erythrocyte distribution width (RBC) [Ratio] 14.1 % 11.5 - 15.0 % [facility] Hematocrit (Bld) [Volume fraction] 42.0 % 39 - 49 % [facility] Hemoglobin (Bld) [Mass/Vol] 14.3 g/dL 13.0 - 17.0 g/dL [facility] Interpretation and review of laboratory results Abnormal [facility] Lymphocytes (Bld) [#/Vol] 1.8 10*3/uL [facility] Lymphocytes/100 WBC (Bld) 14.1 % [facility] MCH (RBC) [Entitic mass] 31.7 pg 27 - 34 pg [facility] MCHC (RBC) [Mass/Vol] 34.0 g/dL 32 - 36 g/dL [facility] MCV (RBC) [Entitic vol] 93 fL 80 [...] [facility] PROTIME AND INRon 10-01-2024 INR Coag (PPP) [Relative time] 1.0 {INR} Normal 0.8-1.1 [facility] Comment on above: Performed By: #### C BCA, BMP, PINR #### [facility] ([id number]) [address] [place] [address] PT Coag (PPP) [Time] 11.7 s Normal 9.8-13.2 [facility] Comment on above: Performed By: #### C BCA, BMP, PINR #### [facility] ([id number]) [address] [facility] [place] [address] Ambulatory Visit Summaryon 0 02-04-2024 Ambulatory Visit Summary Ambulatory Visit Summary MILAD SEYMOUR Mulugeta :1955 Visit Date:02/04/2024 Ambulatory Visit Instructions Your [...] Cap) fluticasone nasal (fluticasone 0.05 mg/inh Nasal [place]) insulin lispro (Insulin Lispro KwikPen 100 units/mL [...] Where: [facility] [address] [place] [id number] Medications What How Much When Instructions Unchanged aspirin (aspirin 81 mg Oral EC Tab) By Mouth Every day Contact prescribing physician if questions or concerns Unchanged celecoxib By Mouth Contact prescribing physician if questions or concerns Unchanged fluoxetine (FLUoxetine 20 mg Cap) 1 Capsules By Mouth Contact prescribing physician if questions or concerns Unchanged fluticasone nasal (fluticasone 0.05 mg/ inh Nasal [place]) Nasal Inhalation Every day Contact prescribing physician [...] with pro (more content not included)... Normal [facility] Urology Office/Clinic Noteon 02-04-2024 Urology Office/Clinic Note [...] x2 and one suspicious. TRUS/bx 09/23/19 - Chester 6 (3+3) x3, 26% involved with DOLORES [...] [facility] [address], [place] [phone] Additional Instructions: 1 yr w/ PSA Patient [...] 1 cap(s), Oral fluticasone 0.05 mg/inh Nasal [place], Nasal, Daily Ilumya 100 mg/mL subcutaneous solution, [...] Recorded SARS-CoV- (more content not included)... Normal [facility] Comment on above: Result Comment: Elec tronically Signed By: Peterson PETERSEN MD\.br\Date and Time Signed: 02/04/24 12:52 EDT\.br\Electronically Co-Signed By: Johana Reeves\.br\Date and Time Co-Signed: 02/04/24 12:50 EDT NM gastric emptying studyon 08-22-2023 NM gastric emptying study [facility] [place] [address] Nuclear Medicine Report Signed Patient: Milad Seymour MR#: [id number] : 1955 Acct:[id number] Age/Sex: 67 / M ADM Date: 08/22/23 Loc: [place] Room: Type: [facility] Attending Dr: Kike Bernal MD [...] Grimes Jr., D.O.08/22/2023 12:21 PM Dictation Location: [place] [address] Transcribed By: [facility] 08/22/23 1221 Dictated By: Shaheen Grimes Jr, DO 08/22/23 1215 Signed By: 08/22/23 1221 Normal [facility] Glucose Poct Glucometerson 0 08-20-2023 Glucose [Mass/Vol] 182 mg/dL Normal [facility] Comment on above: Result Comment: [facility] Glucose Reference Range is dependent on time and content of last meal. Glucose of more than 200 mg/dL in a nonstressed, ambulatory subject supports the diagnosis of Diabetes Mellitus. PERFORMED BY: [address] [place] [address] PATHOLOGIST LINE INSPECTOR JEANNINE VAZQUEZ M.D. Performed By: #### G LULS #### Point of Care testing , Glucose [Mass/Vol] 227 mg/dL Normal [facility] Comment on above: Result Comment: [facility] Glucose Reference Range is dependent on time and content of last meal. Glucose of more than 200 mg/dL in a nonstressed, ambulatory subject supports the diagnosis of Diabetes Mellitus. PERFORMED BY: [place] [address] PATHOLOGIST LINE INSPECTOR JEANNINE VAZQUEZ M.D. Performed By: #### G LULS #### Point of Care testing , XR pre/post mri xrayon 08-19 XR pre/post mri xray [facility] Main [place] [address] [place], [place] [id number] MRI Report Signed Patient: Milad Seymour MR#: [id number] : 1955 Acct:[id number] Age/Sex: 67 / M ADM Date: 08/20/23 Loc: [place] Room: Type: [facility] Attending Dr: Dank Campo MD Copies to: Dank Campo MD Ordering Provider: Dank Campo MD Date of Service: 08/20/23 MR/MR lumbar spine wo con: [id number] ([id number]) XR/XR pre/post mri xray: PRE LUMBAR MRI [...] Tom Chanel M.D.08/20/2023 1:02 PM Dictation Location: [place] [address] Transcribed By: [facility] 08/20/23 1302 Dictated By: Tom Chanel DO 08/20/23 1250 Signed By: 08/20/23 1302 Normal [facility] HbA1c (Bld) [Mass fraction]o n 07-30-2023 Interpretation and review of laboratory results Abnormal [facility] - Hematology and Cell countson 07-30-2023 HbA1c (Bld) [Mass fraction] 8.9 % [facility] Glucose Glucometer (BldC) [M ass/Vol]Ordered By: Kike Bernal on 04-27-2023 Glucose [Mass/Vol] 189 mg/dL [facility] Comment on above: Random Glucose Refer ence Range is dependent on time and content of last meal. Glucose of more than 200 mg/dL in a nonstressed, ambulatory subject supports the diagnosis of Diabetes Mellitus. No Panel InformationOrdered By: Kike Bernal on 04-27-2023 Bedside Glucose Comment Glu2: cleaned meter [facility] Patient Educationon 02-13-20 Patient Education Oncology [...] under a microscope. This is called the [place] score and the total score can range from 6?10, indicating how likely it is that the cancer will spread (metastasize) to other parts of the body. The higher the score, the greater the likelihood that the cancer will spread. ? Chester 6 or lower: This indicates that the cancer cells look similar to normal prostate cells (well differentiated). ? Chester 7: This indicates that the cancer cells look somewhat similar to normal prostate cells (moderately differentiated). ? [place] 8, 9, or 10: This indicates that [...] external be (more content not included)... Normal [facility] Reminderson 02-12-2023 Reminders - From: Johana Reeves To: NOREEN Petersen; Sent: 02/12/2023 17:56:32 EDT Show up: 01/13/2024 17:56:00 EDT Subject: PSA prior to appt Reminder Message Please Remember to:_have pt get PSA done prior to appt in 1 year. Normal [facility] Urology Office/Clinic Noteon 02-12-2023 Urology Office/Clinic [...] [facility] [address], [place] [phone] Additional Instructions: 1 yr w/ PSA Patient Education Prostate Cancer I, Johana Reeves, personally scribed for Dr. Petesren on 02/12/2023 10:14:09. . Documentation recorded by [...] TID celecoxib, Oral fluticasone 0.05 mg/inh Nasal [place], Nasal, Daily Insulin Lispro KwikPen 100 units/mL [...] used for this result was chemiluminescence using [employer] PSA reagent. PSA Total 0.5 ng/mL 11/28/2022 11:31 EDT The concentration of P (more content not included)... Normal [facility] Comment on above: Result Comment: Elec [...] celecoxib fluticasone nasal (fluticasone 0.05 mg/inh Nasal [place]) lansoprazole lisinopril metformin metoprolol (metoprolol 25 mg [...] Normal 0.1 - 3.5 ng/mL [facility] Remisol PSA Totalon 02-06-2023 Prostate specific Ag [Mass/Vol] 0.4 ng/mL Normal 0.1-3.5 [facility] Comment on above: Result Comment: The concentration of PSA determined by different manufacturers can vary due to differences in assay methods and reagent specificity. Values obtained from different assay methods cannot be used interchangeably. The methodology used for this result was chemiluminescence using [employer] PSA reagent. Performed By: #### [id number] #### [facility] [address] [place] [address] PANCREATIC ELASTASE FECALon 09-24-2022 Pancreatic Elastase, Fecal 467 ug Elast./g Normal >200 [facility] Comment on above: Result Comment: Nicolle re Pancreatic Insufficiency: <100 Moderate Pancreatic Insufficiency: 100 - 200 Normal: >200 Performed By: #### C PEPT #### [facility] [address] [place] [address] Dr. Stewart De La Cruz POTASSIUM, FECALon 3 Potassium, Stool 57 mmol/L Normal [facility] Comment on above: Result Comment: INTE RPRETIVE INFORMATION: Fecal Potassium A reference interval has not been established for fecal specimens. This test was developed and its performance characteristics determined by [employer]. It has not been cleared or approved by the [place] Food and Drug Administration. This test was performed in a CLIA certified laboratory and is intended for clinical purposes. Performed By: #### C PEPT #### [facility] [address] [address] [address] Stewart De La Cruz SODIUM, FECALon 09-17-2022 Sodium, Stool 65 mmol/L Normal [facility] Comment on above: Result Comment: INTE RPRETIVE INFORMATION: Fecal Sodium A reference interval has not been established for fecal specimens. This test was developed and its performance characteristics determined by [employer]. It has not been cleared or approved by the [place] Food and Drug Administration. This test was performed in a CLIA certified laboratory and is intended for clinical purposes. Performed By: #### F ECALN #### [facility] [address] [address] [address] Stewart De La Cruz CALPROTECTIN, FECALon 2022 Calprotectin, Fecal 43 ug/g Normal 0-120 [facility] Comment on above: Result Comment: Conc entration Interpretation Follow-Up <16 - 50 ug/g Normal None >50 -120 ug/g Borderline Re-evaluate in 4-6 weeks >120 ug/g Abnormal Repeat as clinically indicated Performed By: #### C PEPT #### [facility] [address] [place] [address] Dr. Stewart De La Cruz C-PEPTIDE, SERUMon 3 C-Peptide, Serum 6.5 ng/mL Critically high 1.1-4.4 [facility] Comment on above: Result Comment: C-Pe ptide reference interval is for fasting patients. Performed By: #### C PEPT #### [facility] [address] [address] [address] Stewart De La Cruz HIV 1 AND 2 WITH REFLEXon HIV Screen 4th Generation wRfx Non-Reactive Normal Non Reactive [facility] Comment on above: Result Comment: HIV Negative HIV-1/HIV-2 antibodies and HIV-1 p24 antigen were NOT detected. There is no laboratory evidence of HIV infection. Performed By: #### C PEPT #### [facility] [address] [address] [address] Stewart De La Cruz INSULINon 09-13-2022 Insulin 13.9 uIU/mL Normal 2.6-24.9 [facility] Comment on above: Performed By: #### C PEPT #### [facility] [address] [place] [address] Dr. Stewart De La Cruz POTASSIUM, FECALon 3 Potassium, Stool QNSMT Normal [facility] Comment on above: Result Comment: Test not performed. One specimen was submitted with requests for multiple tests. The requested testing requires a separate specimen for each test requested. contacted Keesha at your facility on 09-13-2022 Performed By: #### C PEPT #### [facility] [address] [place] [address] Dr. Stewart De La Cruz SODIUM, FECALon 09-13-2022 Sodium, Stool QNSMT Normal [facility] Comment on above: Result Comment: Test not performed. One specimen was submitted with requests for multiple tests. The requested testing requires a separate specimen for each test requested. contacted Keesha at your facility on 09-13-2022 Performed By: #### F ECALN #### [facility] [address] [place] [address] Dr. Stewart De La Cruz CBC AUTO DIFFon 09-12-2022 BASO # 0.1 103/ul Normal 0.0-0.1 [facility] Comment on above: Performed By: #### C PEPT #### [facility] [address] [place] [address] Dr. Stewart De La Cruz Basophils/100 WBC (Bld) 1.2 % Normal 0.2-2.0 [facility] Comment on above: Performed By: #### C PEPT #### [facility] [address] [place] [address] Dr. Stewart De La Cruz EO # 0.3 103/ul Normal 0.0-0.7 [facility] Comment on above: Performed By: #### C PEPT #### [facility] [address] [place] [address] Dr. Stewart De La Cruz Eosinophils/100 WBC (Bld) 4.5 % Normal 0.9-7.0 [facility] Comment on above: Performed By: #### C PEPT #### [facility] [address] [place] [address] Dr. Stewart De La Cruz Erythrocyte distribution width (RBC) [Ratio] 12.9 % Normal 11.0-15.0 [facility] Comment on above: Performed By: #### C PEPT #### [facility] [address] [place] [address] Dr. Stewart De La Cruz Hematocrit (Bld) [Volume fraction] 44.6 % Normal 42.0-54.0 [facility] Comment on above: Performed By: #### C PEPT #### [facility] [address] [place] [address] Dr. Stewart De La Cruz Hemoglobin (Bld) [Mass/Vol] 14.9 g/dL Normal 14.0-18.0 [facility] Comment on above: Performed By: #### C PEPT #### [facility] [address] [place] [address] Dr. Stewart De La Cruz IG # 0.03 10e3/ul Normal 0.00-0.03 [facility] Comment on above: Performed By: #### C PEPT #### [facility] [address] [place] [address] Dr. Stewart De La Cruz IG % 0.5 % Normal 0.0-0.5 [facility] Comment on above: Performed By: #### C PEPT #### [facility] [address] [place] [address] Dr. Stewart De La Cruz LYMPH # 1.1 103/ul Critically low 1.2-3.8 [facility] Comment on above: Performed By: #### C PEPT #### [facility] [address] [place] [address] Dr. Stewart De La Cruz Lymphocytes/100 WBC (Bld) 18.5 % Critically low 20.5-60.0 [facility] Comment on above: Performed By: #### C PEPT #### [facility] [address] [place] [address] Dr. Stewart De La Cruz MANUAL DIFF REQ NO Normal [facility] Comment on above: Performed By: #### C PEPT #### [facility] [address] [place] [address] Dr. Stewart De La Cruz MCH (RBC) [Entitic mass] 29.2 pg Normal 25.9-34.0 [facility] Comment on above: Performed By: #### C PEPT #### [facility] [address] [place] [address] Dr. Stewart De La Cruz MCHC (RBC) [Mass/Vol] 33.4 g/dL Normal 29.9-35.2 [facility] Comment on above: Performed By: #### C PEPT #### [facility] [address] [address] [address] Stewart De La Cruz MCV (RBC) [Entitic vol] 87.5 fL Normal 80.0-94.0 [facility] Comment on above: Performed By: #### C PEPT #### [facility] [address] [address] [address] Stewart De La Cruz MONO # 0.4 103/ul Normal 0.3-0.8 [facility] Comment on above: Performed By: #### C PEPT #### [facility] [address] [address] [address] Stewart De La Cruz Monocytes/100 WBC (Bld) 6.8 % Normal 1.7-12.0 [facility] Comment on above: Performed By: #### C PEPT #### [facility] [address] [address] [address] Stewart De La Cruz NEUT # 4.2 103/ul Normal 1.4-6.5 [facility] Comment on above: Performed By: #### C PEPT #### [facility] [address] [address] [address] Stewart De La Cruz Neutrophils/100 WBC (Bld) 68.5 % Normal 43.0-75.0 [facility] Comment on above: Performed By: #### C PEPT #### [facility] [address] [address] [address] Stewart De La Cruz Platelet mean volume (Bld) [Entitic vol] 9.8 fL Normal 9.5-13.5 [facility] Comment on above: Performed By: #### C PEPT #### [facility] [address] [address] [address] Stewart De La Cruz PLT 133 103/ul Critically low 150-450 [facility] Comment on above: Performed By: #### C PEPT #### [facility] [address] [address] [address] Stewart De La Cruz RBC 5.10 106/ul Normal 4.70-6.10 [facility] Comment on above: Performed By: #### C PEPT #### [facility] [address] [place] [address] Dr. Stewart De La Cruz WBC 6.1 103/ul Normal 4.0-11.0 [facility] Comment on above: Performed By: #### C PEPT #### [facility] [address] [place] [address] Dr. Stewart De La Cruz CRPon 09-12-2022 CRP [Mass/Vol] mg/L Normal <=1.0 [facility] Comment on above: Performed By: #### C RP #### [facility] [address] [place] [address] Dr. Stewart De La Cruz GLYCOHEMOGLOBIN A1Con 2022 ADA RECOMMENDATION SEE BELOW Normal [facility] Comment on above: Result Comment: ADA RECOMMENDED LIMIT 4.0 - 6.0 ADA THERAPEUTIC TARGET < 7.0 ACTION SUGGESTED > 7.0 Performed By: #### A 1C #### [facility] [address] [place] [address] Dr. Stewart De La Cruz Glucose [Mass/Vol] 278 mg/dL Normal [facility] Comment on above: Performed By: #### A 1C #### [facility] [address] [place] [address] Dr. Stewart De La Cruz HbA1c (Bld) [Mass fraction] 11.3 % Critically high 4.5-6.2 [facility] Comment on above: Performed By: #### A 1C #### [facility] [address] [place] [address] Dr. Stewart De La Cruz PROF CHEM 8 (BAS METB)on Anion gap [Moles/Vol] 16.9 mmol/L Normal [facility] Comment on above: Performed By: #### C PEPT #### [facility] [address] [place] [address] Dr. Stewart De La Cruz Calcium [Mass/Vol] 9.3 mg/dL Normal 8.5-10.1 [facility] Comment on above: Performed By: #### C PEPT #### [facility] [address] [place] [address] Dr. Stewart De La Cruz Chloride [Moles/Vol] 103 mmol/L Normal 98-107 [facility] Comment on above: Performed By: #### C PEPT #### [facility] [address] [place] [address] Dr. Stewart De La Cruz CO2 [Moles/Vol] 26.0 mmol/L Normal 21.0-32.0 [facility] Comment on above: Performed By: #### C PEPT #### [facility] [address] [place] [address] Dr. Stewart De La Cruz Creatinine [Mass/Vol] 1.43 mg/dL Critically high 0.70-1.30 [facility] Comment on above: Performed By: #### C PEPT #### [facility] [address] [place] [address] Dr. Stewart De La Cruz EGFR-AF GERMAN 60 mL/min/1.73m2 Normal >=60 [facility] Comment on above: Performed By: #### C PEPT #### [facility] [address] [place] [address] Dr. Stewart De La Cruz EGFR-NON AF GERMAN 49 mL/min/1.73m2 Critically low >=60 [facility] Comment on above: Performed By: #### C PEPT #### [facility] [address] [place] [address] Dr. Stewart De La Cruz Glucose [Mass/Vol] 293 mg/dL Critically high 74-106 [facility] Comment on above: Performed By: #### C PEPT #### [facility] [address] [place] [address] Dr. Stewart De La Cruz Potassium [Moles/Vol] 4.9 mmol/L Normal 3.5-5.1 [facility] Comment on above: Performed By: #### C PEPT #### [facility] [address] [place] [address] Dr. Stewart De La Cruz Sodium [Moles/Vol] 141 mmol/L Normal 136-145 [facility] Comment on above: Performed By: #### C PEPT #### [facility] [address] [place] [address] Dr. Stewart De La Cruz Urea nitrogen [Mass/Vol] 32.0 mg/dL Critically high 7.0-18.0 [facility] Comment on above: Performed By: #### C PEPT #### [facility] [address] [address] [address] Stewart De La Cruz Urea nitrogen/Creatinine [Mass ratio] 22.4 mg/mg Normal [facility] Comment on above: Performed By: #### C PEPT #### [facility] [address] [address] [address] Stewart De La Cruz SED RATE WESTERGRENon 2022 SED RATE 17 mm/hr Normal <=20 [facility] Comment on above: Performed By: #### S EDR #### [facility] [address] [place] [address] Dr. Stewart De La Cruz RAD EGD - documentation only do not orderon 07-25-2022 RAD EGD - documentation only do not order [employer] Other Glucose Glucometer (BldC) [M ass/Vol]Ordered By: Kike Bernal on 07-24-2022 Glucose [Mass/Vol] 275 mg/dL [facility] Comment on above: Random Glucose Refer ence Range is dependent on time and content of last meal. Glucose of more than 200 mg/dL in a nonstressed, ambulatory subject supports the diagnosis of Diabetes Mellitus. GLYCOHEMOGLOBIN A1Con 2021 ADA RECOMMENDATION SEE BELOW Normal [facility] Comment on above: Result Comment: ADA RECOMMENDED LIMIT 4.0 - 6.0 ADA THERAPEUTIC TARGET < 7.0 ACTION SUGGESTED > 7.0 Performed By: #### A 1C #### [facility] [address] [place] [address] Dr. Stewart De La Cruz Glucose [Mass/Vol] 235 mg/dL Normal [facility] Comment on above: Performed By: #### A 1C #### [facility] [address] [address] [address] Stewart De La Cruz HbA1c (Bld) [Mass fraction] 9.8 % Critically high 4.5-6.2 [facility] Comment on above: Performed By: #### A 1C #### [facility] [address] [address] [address] Stewart De La Cruz GLYCOHEMOGLOBIN A1Con 2021 ADA RECOMMENDATION SEE BELOW Normal [facility] Comment on above: Result Comment: ADA RECOMMENDED LIMIT 4.0 - 6.0 ADA THERAPEUTIC TARGET < 7.0 ACTION SUGGESTED > 7.0 Performed By: #### A 1C #### [facility] [address] [place] [address] Dr. Stewart De La Cruz Glucose [Mass/Vol] 197 mg/dL Normal [facility] Comment on above: Performed By: #### A 1C #### [facility] [address] [address] [address] Stewart De La Cruz HbA1c (Bld) [Mass fraction] 8.5 % Critically high 4.5-6.2 [facility] Comment on above: Performed By: #### A 1C #### [facility] [address] [place] [address] Dr. Stewart De La Cruz PSA, FREE AND TOTAL RATIOon 01-28-2022 % Free PSA 30.0 % Normal [facility] Comment on above: Result [...] men. Performed By: #### P SAFREE #### [facility] [address] [place] [address] Dr. Stewart De La Cruz Prostate specific Ag [Mass/Vol] 0.1 ng/mL Normal 0.0-4.0 [facility] Comment on above: Result Comment: Nina jaime ECLIA methodology. . According to the [place] [employer], Serum PSA should decrease and [...] disease. Performed By: #### P SAFREE #### [facility] [address] [place] [address] Dr. Stewart De La Cruz PSA, Free 0.03 ng/mL Normal N/A [facility] Comment on above: Result Comment: Nina PUCKETT methodology. Performed By: #### P SAFREE #### [facility] [address] [place] [address] Dr. Stewart De La Cruz GLYCOHEMOGLOBIN A1Con 2021 ADA RECOMMENDATION SEE BELOW Normal [facility] Comment on above: Result Comment: ADA RECOMMENDED LIMIT 4.0 - 6.0 ADA THERAPEUTIC TARGET < 7.0 ACTION SUGGESTED > 7.0 Performed By: #### A 1C #### [facility] [address] [place] [address] Dr. Stewart De La Cruz Glucose [Mass/Vol] 192 mg/dL Normal [facility] Comment on above: Performed By: #### A 1C #### [facility] [address] [place] [address] Dr. Stewart De La Cruz HbA1c (Bld) [Mass fraction] 8.3 % Critically high 4.5-6.2 [facility] Comment on above: Performed By: #### A 1C #### [facility] [address] [place] [address] Dr. Stewart De La Cruz CNOVon 02-01-2021 CNOV Office Visit (RADTSA ) -- MILAD SEYMOUR ([id number]) 1955 M Date Time Provider Department 02/01/21 [...] DIAGNOSIS: Prostate adenocarcinoma, initial PSA 14.65, biopsy Chester score 3 + 3 = 6 (grade [...] ASSESSMENT/PLAN:DIAGNOSIS: Prostate adenocarcinoma, initial PSA 14.65, biopsy Chester score 3 + 3 = 6 (grade [...] Fawad Diaz MD cc: Dank Campo MD ([facility]) [address] [place] [address] Dr. Petersen Portions of the above note extracted and edited from previous visit as well as active information included in the EMR. Referring Provider: Fawad DIAZ [[id number]] Allergies As of Date: 02/01/2021 (No Known Allergies) Date Reviewed: 02/01/2021 Reviewed by: Tila Herrera LPN - Fully Assessed Reason for Visit: Prostate Cancer [590] Primary Visit Diagnosis:Malignant neoplasm of prostate (HCC) [C61] Order(s):PSA/PROSTSPECAG DIAG [SQPSA] Order #: [id number] FUTURE Prescriptions as of 02/03/2021 - aspirin, [...] magnesium) t (more content not included)... Normal [facility] PSA, [facility] 01-25-2021 PSA, Diagnostic 0.29 ng/mL Normal 0.00-2.59 [facility] Comment on above: Result Comment: Sandra manzo PSA test methodology used is the Electrochemiluminescence Immunoassay. Performed By: #### P SA #### [facility] [address] [id number] OBSOLETEon 12-22-2020 OBSOLETE Refill (RADTSA) -- MILAD SEYMOUR ([id number]) 1955 M Date Time Provider Department 12/22/20 [...] Encounter Status:Closed by TILA HERRERA on 01/04/21 [facility] CNOVon 11-03-2020 CNOV Office Visit (RADTSA ) -- MILAD SEYMOUR ([id number]) 1955 M Date Time Provider Department 11/03/20 4:00 PM LAB/PORT RADT ADAM COCHRAN During your visit today, we recorded the following information about you: Referring Provider: Fawad DIAZ [[id number]] Allergies As of Date: 11/03/2020 (No Known [...] Encounter Status:Closed by TILA HERRERA on 11/03/20 [facility] CNOV Office Visit (RADTSA ) -- MILAD SEYMOUR ([id number]) 1955 M Date Time Provider Department 11/03/20 4:00 PM Fawad DIAZ During your visit today, we recorded the following information about you: Temperature Pulse Respiration Blood pressure 97.5 degrees 61/minute 18/minute 145/62 Weight 103 kg Tila ION Herrera 11/03/2020 4:11 PM Signed AUA=11 G Kurt Diaz MD 11/04/2020 9:44 AM Signed Radiation [...] Fawad Diaz MD cc: Dank Campo MD ([facility]) [address] [place] [address] Dr. Petersen Referring Provider: Fawad DIAZ [[id number]] Allergies As of Date: 11/03/2020 (No Known Allergies) Date Reviewed: 11/03/2020 Reviewed by: Fawad Diaz MD - Fully Assessed Reason for Visit: Prostate Cancer [590] Primary Visit Diagnosis:Malignant neoplasm of prostate (HCC) [C61] Order(s):PSA/PROSTSPECAG DIAG [SQPSA] Order #: [id number] FUTURE Prescriptions as of 11/03/2020 Sig: TAMSULOSIN [...] 30 mg (more content not included)... Normal [facility] PSA, [facility] 11-01-2020 PSA, Diagnostic 0.27 ng/mL Normal 0.00-2.59 [facility] Comment on above: Result Comment: Sandra manzo PSA test methodology used is the Electrochemiluminescence Immunoassay. Performed By: #### P SA #### [facility] [address] [place], [place] [address] [facility] MILAD SEYMOUR ([id number]) 1955 M Date Time Provider Department 10/29/20 [...] since completing radiation therapy. Call transferred to [facility] to move up appointment. Dr. Diaz, [...] (HCC) [C61] Order(s):PSA/PROSTSPECAG DIAG [SQPSA] Order #: [id number] FUTURE Prescriptions as of 10/29/2020 Sig: TAMSULOSIN [...] Encounter Status:Closed by TILA HERRERA on 10/29/20 [facility] 10-08-2020 [facility] Telephone (HEMASA) -- MILAD SEYMOUR ([id number]) 1955 M Date Time Provider Department 10/08/20 HEATHER BARRIGA During your visit today, we recorded the following information about you: Allergies As of Date: 10/08/2020 (No Known Allergies) Date Reviewed: 07/14/2020 Reviewed by: Joann Richardson - Fully Assessed Reason for Visit: Lab Orders [[id number]] Primary Visit Diagnosis:Iron deficiency anemia due to chronic blood loss [D50.0] Order(s):CBC + DIFF (FOR REMOTE [facility] USE) [SQRCBCDF] Order #: [id number] FUTURE COMP METABOLIC PANEL [SQCMP] Order #: [id number] FUTURE Prescriptions as of 10/08/2020 Sig: TAMSULOSIN [...] Encounter Status:Closed by TASHA GOOD on 10/14/20 [facility] OBSOLETEon 09-20-2020 OBSOLETE Refill (SULEIMANTSA) -- MILAD SEYMOUR ([id number]) 1955 M Date Time Provider Department 09/20/20 [...] Status:Closed by TILA HERRERA on 10/14/20 Normal [facility] Vital Signs Date Time Vital Sign Value Performing Clinician Facility 07-31-2024 10:32-0500 Body height 177.8 cm Reedy Anonymous You Work Phone: [facility] 07-31-2024 10:32-0500 Body mass index (BMI) [Ratio] 37.02 kg/m2 Reedy Anonymous You Work Phone: [facility] 07-31-2024 10:32-0500 Body temperature 97.9 [degF] Reedy Anonymous You Work Phone: [facility] 07-31-2024 10:32-0500 Body weight 117.03 kg Reedy Anonymous You Work Phone: [facility] 07-31-2024 10:32-0500 Diastolic blood pressure 70 mm[Hg] Reedy Anonymous You Work Phone: [facility] 07-31-2024 10:32-0500 Heart rate 78 /min Reedy Petznick DO Work Phone: [facility] 07-31-2024 10:32-0500 SaO2% (BldA) [Mass fraction] 97 % Ashli Petznick DO Work Phone: [facility] 07-31-2024 10:32-0500 Systolic blood pressure 108 mm[Hg] Ashli Petznick DO Work Phone: [facility] [facility] 07-30-2024 14:11-0500 Body height 175.26 cm [facility] 07-30-2024 14:11-0500 Body mass index (BMI) [Ratio] 38.4 kg/m2 [facility] 07-30-2024 14:11-0500 Body weight 117.93 kg [facility] 05-29-2024 14:51-0500 Body height 177.8 cm Dexter Krishnamurthy DPM Work Phone: [facility] 05-29-2024 14:51-0500 Body mass index (BMI) [Ratio] 36.88 kg/m2 Dexter Krishnamurthy DPM Work Phone: [facility] 05-29-2024 14:51-0500 Body weight 116.57 kg Dexter Krishnamurthy DPM Work Phone: [facility] 05-28-2024 07:38-0500 Body height 177.8 cm Dank Campo MD Work Phone: [facility] 05-28-2024 07:38-0500 Body mass index (BMI) [Ratio] 36.88 kg/m2 Dank Campo MD Work Phone: [facility] 05-28-2024 07:38-0500 Body temperature 97.11 [degF] Dank Campo MD Work Phone: [facility] 05-28-2024 07:38-0500 Body weight 116.57 kg Dank Campo MD Work Phone: [facility] 05-28-2024 07:38-0500 Diastolic blood pressure 72 mm[Hg] Dank Campo MD Work Phone: [facility] 05-28-2024 07:38-0500 Heart rate 104 /min Dank Campo MD Work Phone: [facility] 05-28-2024 07:38-0500 Respiratory rate 18 /min Dank Campo MD Work Phone: [facility] 05-28-2024 07:38-0500 SaO2% (BldA) [Mass fraction] 97 % Dank Campo MD Work Phone: [facility] 05-28-2024 07:38-0500 Systolic blood pressure 136 mm[Hg] Dank Campo MD Work Phone: [facility] 04-29-2024 10:46-0500 Body height 177.8 cm Ashli Petznick DO Work Phone: [facility] 04-29-2024 10:46-0500 Body mass index (BMI) [Ratio] 35.61 kg/m2 Ashli Petznick DO Work Phone: [facility] 04-29-2024 10:46-0500 Body temperature 96.1 [degF] Ashli Petznick DO Work Phone: [facility] 04-29-2024 10:46-0500 Body weight 112.58 kg Ashli Petznick DO Work Phone: [facility] 04-29-2024 10:46-0500 Diastolic blood pressure 78 mm[Hg] Ashli Petznick DO Work Phone: [facility] 04-29-2024 10:46-0500 Heart rate 84 /min Ashli Petznick DO Work Phone: [facility] 04-29-2024 10:46-0500 SaO2% (BldA) [Mass fraction] 97 % Ashli Petznick DO Work Phone: [facility] 04-29-2024 10:46-0500 Systolic blood pressure 124 mm[Hg] Ashli Petznick DO Work Phone: [facility] 04-15-2024 09:08-0400 Body height 175.26 cm [facility] 04-15-2024 09:08-0400 Body mass index (BMI) [Ratio] 36.1 kg/m2 [facility] 04-15-2024 09:08-0400 Body weight 111.13 kg [facility] 04-08-2024 10:00-0400 Body height 177.8 cm Rebecca Dias PA Work Phone: [facility] 04-08-2024 10:00-0400 Body mass index (BMI) [Ratio] 35.73 kg/m2 Rebecca Dias PA Work Phone: [facility] 04-08-2024 10:00-0400 Body weight 112.95 kg Rebecca Dias PA Work Phone: [facility] 03-18-2024 08:28-0400 Body height 177.8 cm Rebecca Dias PA Work Phone: [facility] 03-18-2024 08:28-0400 Body mass index (BMI) [Ratio] 35.73 kg/m2 Rebecca Dias PA Work Phone: [facility] 03-18-2024 08:28-0400 Body weight 112.95 kg Rebecca Dias PA Work Phone: [facility] 03-17-2024 10:19-0400 Body height 175.26 cm [facility] 03-17-2024 10:19-0400 Body mass index (BMI) [Ratio] 37 kg/m2 [facility] 03-17-2024 10:19-0400 Body weight 114 kg [facility] 02-25-2024 10:29-0400 Body height 175.3 cm Hanna Butcher MD Work Phone: [facility] 02-25-2024 10:29-0400 Body mass index (BMI) [Ratio] 37.01 kg/m2 Hanna Butcher MD Work Phone: [facility] 02-25-2024 10:29-0400 Body weight 113.67 kg Hanna Butcher MD Work Phone: [facility] 02-25-2024 10:29-0400 Diastolic blood pressure 60 mm[Hg] Hanna Butcher MD Work Phone: [facility] 02-25-2024 10:29-0400 Heart rate 77 /min Hanna Butcher MD Work Phone: [facility] 02-25-2024 10:29-0400 SaO2% (BldA) [Mass fraction] 98 % Hanna Butcher MD Work Phone: [facility] 02-25-2024 10:29-0400 Systolic blood pressure 108 mm[Hg] Hanna Butcher MD Work Phone: [facility] 02-04-2024 11:45-0400 Diastolic blood pressure 74 mm[Hg] Peterson PETERSEN [facility] 02-04-2024 11:45-0400 Heart rate 66 /min Peterson PETERSEN [facility] 02-04-2024 11:45-0400 Respiratory rate 16 /min Peterson PETERSEN [facility] 02-04-2024 11:45-0400 Systolic blood pressure 116 mm[Hg] Peterson PETERSEN [facility] 12-13-2023 22:34-0400 Body height 175.3 cm [facility] 3 [facility] 12-13-2023 22:34-0400 Body mass index (BMI) [Ratio] 36.77 kg/m2 [facility] 3 [facility] 12-13-2023 22:34-0400 Body weight 112.[address] 08-15-2023 13:35-0500 Diastolic blood pressure 60 mm[Hg] Gregoria Loree MASTER [employer] CONTENT DIRECTOR Work Phone: [facility] 08-15-2023 13:35-0500 Systolic blood pressure 107 mm[Hg] Gregoria Ralph MASTER [employer]WE[employer] CONTENT DIRECTOR Work Phone: [facility] [employer] [facility] 08-15-2023 13:33-0500 Body height 175.3 cm Gregoria Ralph MASTER [employer] CONTENT DIRECTOR Work Phone: [facility] [employer] [facility] 08-15-2023 13:33-0500 Body mass index (BMI) [Ratio] 36.77 kg/m2 Gregoriacortney Ralph MASTER [employer] CONTENT DIRECTOR Work Phone: [facility] [employer] [facility] 08-15-2023 13:33-0500 Body weight 112.95 kg Gregoriacortney Ralph MASTER [employer] CONTENT DIRECTOR Work Phone: [facility] 08-15-2023 13:33-0500 Heart rate 81 /min Gregoriacortney Ralph MASTER [employer] CONTENT DIRECTOR Work Phone: [facility] 08-15-2023 13:33-0500 SaO2% (BldA) [Mass fraction] 95 % Gregoriacortney Ralph MASTER [employer] CONTENT DIRECTOR Work Phone: [facility] [employer] [facility] 07-30-2023 11:16-0500 Body height 177.8 cm Ashli Petznick DO Work Phone: [facility] [employer] 07-30-2023 11:16-0500 Body mass index (BMI) [Ratio] 36.16 kg/m2 Ashli Petznick DO Work Phone: [facility] [employer] 07-30-2023 11:16-0500 Body temperature 98.01 [degF] Ashli Petznick DO Work Phone: [facility] [employer] 07-30-2023 11:16-0500 Body weight 114.31 kg Ashli Petznick DO Work Phone: [facility] [employer] 07-30-2023 11:16-0500 Diastolic blood pressure 62 mm[Hg] Ashli Petznick DO Work Phone: [facility] 07-30-2023 11:16-0500 Heart rate 66 /min Ashli Petznick DO Work Phone: [facility] 07-30-2023 11:16-0500 SaO2% (BldA) [Mass fraction] 97 % Ashli Petznick DO Work Phone: [facility] 07-30-2023 11:16-0500 Systolic blood pressure 116 mm[Hg] Ashli Petznick DO Work Phone: [facility] 07-17-2023 09:22-0500 Diastolic blood pressure 73 mm[Hg] MD Dank Campo Work Phone: [facility] 07-17-2023 09:22-0500 Heart rate 70 /min MD Dank Campo Work Phone: [facility] 07-17-2023 09:22-0500 Respiratory rate 18 /min MD Dank Campo Work Phone: [facility] 07-17-2023 09:22-0500 SaO2% (BldA) [Mass fraction] 97 % MD Dank Campo Work Phone: [facility] 07-17-2023 09:22-0500 Systolic blood pressure 173 mm[Hg] MD Dank Campo Work Phone: [facility] 07-17-2023 09:20-0500 Body height 177.8 cm MD Dank Campo Work Phone: [facility] 07-17-2023 09:20-0500 Body weight 111.13 kg MD Dank Campo Work Phone: [facility] 04-27-2023 12:40-0500 Diastolic blood pressure 68 mm[Hg] MD Dank Campo Work Phone: [facility] 04-27-2023 12:40-0500 Heart rate 75 /min MD Dank Campo Work Phone: [facility] 04-27-2023 12:40-0500 Respiratory rate 16 /min MD Dank Campo Work Phone: [facility] 11-10-2023 12:40-0500 SaO2% (BldA) [Mass fraction] 97 % MD Dank Campo Work Phone: [facility] 04-27-2023 12:40-0500 Systolic blood pressure 110 mm[Hg] MD Dank Campo Work Phone: [facility] 04-27-2023 10:29-0500 Body height 177.8 cm MD Dank Campo Work Phone: [facility] 04-27-2023 10:29-0500 Body weight 113.39 kg MD Dank Campo Work Phone: [facility] 04-10-2023 14:00-0400 Body height 177.8 cm Imad Asaad Other [employer] Other 04-10-2023 14:00-0400 Body mass index (BMI) [Ratio] 36.3 kg/m2 Imad Asaad Other [employer] Other 04-10-2023 14:00-0400 Body weight 114.76 kg Imad Asaad Other [employer] Other 04-10-2023 14:00-0400 Diastolic blood pressure 68 mm[Hg] Imad Asaad Other [employer] Other 04-10-2023 14:00-0400 Systolic blood pressure 113 mm[Hg] Imad Asaad Other [employer] Other 02-12-2023 09:46-0400 Blood Pressure Location Peterson PETERSEN [facility] 02-12-2023 09:46-0400 Diastolic blood pressure [...] 78 mm[Hg] MD Dank Campo Work Phone: [facility] 07-24-2022 13:52-0500 Heart rate 71 /min MD Dank Campo Work Phone: [facility] 07-24-2022 13:52-0500 Respiratory rate 16 /min MD Dank Campo Work Phone: [facility] 07-24-2022 13:52-0500 SaO2% (BldA) [Mass fraction] 96 % MD Dank Campo Work Phone: [facility] 07-24-2022 13:52-0500 Systolic blood pressure 136 mm[Hg] MD Dank Campo Work Phone: [facility] 07-24-2022 12:29-0500 Body height 177.8 cm MD Dank Campo Work Phone: [facility] 07-24-2022 12:29-0500 Body temperature 98 [degF] MD Dank Campo Work Phone: [facility] 07-24-2022 12:29-0500 Body weight 115.66 kg MD Dank Campo Work Phone: [facility] 07-20-2022 10:00-0500 Body height 177.8 cm Imad Dolores Other [facility] Other 07-20-2022 10:00-0500 Body mass index (BMI) [Ratio] 36.73 kg/m2 Imad Asaad Other [facility] Other 07-20-2022 10:00-0500 Body weight 116.12 kg Imad Asaad Other [facility] Other 07-20-2022 10:00-0500 Diastolic blood pressure 96 mm[Hg] Imad Asaad Other [facility] Other 07-20-2022 10:00-0500 Systolic blood pressure 170 mm[Hg] Imad Asaad Other [facility] Other 02-03-2022 08:29-0400 Blood Pressure Location [facility] [place] 02-03-2022 08:29-0400 Diastolic blood pressure 88 mm[Hg] Peterson PETERSEN [facility] 02-03-2022 08:29-0400 Heart rate 75 /min Peterson PETERSEN [facility] [place] 02-03-2022 08:29-0400 Respiratory rate 16 /min Peterson PETERSEN [facility] [place] 02-03-2022 08:29-0400 Systolic blood pressure 138 mm[Hg] Peterson PETERSEN [facility] [place] Encounters Encounter Date Encounter Type Care Provider Facility Start: 02-09-2025 ambulatory Peterson Sylvesteri ty:[facility] [place] Start: 08-04-2024 End: 08-04-2024 ambulatory Roma Lopez MD Facility: [place] Start: 07-31-2024 End: 07-31-2024 ambulatory ASHLI ROSS Not Available Start: 07-31-2024 End: 07-31-2024 Office outpatient visit 25 minutes Ashli Ross DO Work Phone: [facility] [phone] Comment on above: Class 2 severe obesi ty due to excess calories with serious comorbidity and body mass index (BMI) of 37.0 to 37.9 in adult ([facility]) (Primary Dx); Type 2 diabetes mellitus with diabetic polyneuropathy, with long-term current use of insulin ([facility]); Type 2 diabetes mellitus with stage 3b chronic kidney disease, with long-term current use of insulin ([facility]) ([facility]); Type 2 diabetes mellitus with hyperglycemia, with long-term current use of insulin ([facility]) Start: 07-30-2024 End: 07-30-2024 ambulatory Dank Campo MD Work Phone: [facility] Work Phone: Start: 07-30-2024 End: 07-30-2024 Patient encounter procedure [facility] Work Phone: Start: 07-23-2024 End: 07-23-2024 Bamboo flowsheet Rebecca FREY Work Phone: [facility] Start: 07-23-2024 End: 07-23-2024 Bamboo flowsheet Rebecca FREY Work Phone: [facility] Start: 07-23-2024 End: 07-23-2024 ambulatory REBECCA DIAS Not Available Start: 07-23-2024 End: 07-23-2024 Postop follow up visit related to original px Rebecca FREY Work Phone: [facility] Comment on above: S/P arthroscopy of l eft shoulder (Primary Dx) Start: 07-21-2024 End: 07-21-2024 Bamboo flowsheet Kaden Sparks SCOUT LEASER [facility] Start: 07-21-2024 End: 07-21-2024 Bamboo flowsheet Kaden Sparks [employer] LEAS[employer] [facility] Start: 07-21-2024 End: 07-21-2024 ambulatory Andrius Asterytautas [facility]raitis [facility] Start: 07-14-2024 End: 07-14-2024 ambulatory Andrius Vytautas Giedraitis [facility] Start: 07-07-2024 End: 07-07-2024 Bamboo flowsheet Maureenankush Thompson [employer] LE[employer] [facility] Start: 07-07-2024 End: 07-07-2024 Bamboo flowsheet Maureen Thompson [employer] LE[employer] [facility] Start: 07-07-2024 End: 07-07-2024 ambulatory Maureen Thompson [facility] Comment on above: Left [...] Start: 06-26-2024 End: 06-26-2024 Bamboo flowsheet Kaden Sparks [employer] LE[employer] [facility] Start: 06-26-2024 End: 06-26-2024 Bamboo flowsheet Kaden Sparks [employer]OUT LEAS[employer] [facility] Start: 06-26-2024 End: 06-26-2024 ambulatory Kaden Sparks [employer] [facility] Comment on above: Left [...] shoulder Start: 06-20-2024 End: 06-20-2024 ambulatory Justina Kraig Carrillo PT Work Phone: [facility] [...] Start: 06-07-2024 End: 06-07-2024 Telephone encounter Rebecca FREY Work Phone: [facility] Start: 06-05-2024 End: 06-05-2024 ambulatory Nanda Petr [employer] [facility] Comment on above: Left shoulder pain, unspecified chronicity (Primary Dx); S/P arthroscopy of left shoulder Start: 06-03-2024 End: 06-03-2024 Telephone encounter Dank Campo MD Work Phone: [facility] Start: 06-02-2024 End: 06-02-2024 Bamboo flowsheet Kaden Sparks [employer] LE[employer] [facility] Start: 06-02-2024 End: 06-02-2024 Bamboo flowsheet Kaden Sparks [employer] LE[employer] [facility] Start: 06-02-2024 End: 06-02-2024 ambulatory Kaden Sparks [employer] LE[employer] Comment on above: Left [...] [facility] Start: 05-28-2024 End: 05-28-2024 Bamboo flowsaaliyah Campo MD Work Phone: [facility] [...] Start: 05-26-2024 End: 05-26-2024 Bamboo flowsheet Kaden Sparks [employer] LE[employer] [facility] Start: 05-26-2024 End: 05-26-2024 Bamboo flowsheet Kaden Sparks [employer] LEAS[facility] Start: 05-26-2024 End: 05-26-2024 ambulatory Kaden Sparks [facility] Comment on above: S/P arthroscopy of l eft shoulder (Primary Dx); Left shoulder pain, unspecified chronicity Start: 05-19-2024 End: 05-19-2024 ambulatory Kaden Sparks [employer] [facility] Comment on above: S/P [...] to 06/05/24.) Start: 05-09-2024 End: 05-09-2024 Bamboo flowsaaliyah FREY Work Phone: [facility] Start: 05-09-2024 End: 05-09-2024 Bamboo flowsaaliyah FREY Work Phone: [facility] Start: 05-09-2024 End: 05-09-2024 Postop follow up visit related to original px Rebecca FREY Work Phone: [facility] Comment on above: S/P arthroscopy of l eft shoulder (Primary Dx) Start: 05-09-2024 End: 05-09-2024 ambulatory REBECCA DIAS Not Available Start: 04-29-2024 End: 04-29-2024 Office outpatient visit 25 minutes Ashli Ross DO Work Phone: [facility] 230 Comment on above: Class 2 severe obesi ty due to excess calories with serious comorbidity and body mass index (BMI) of 35.0 to 35.9 in adult ([facility]) (Primary Dx); Type 2 diabetes mellitus with diabetic polyneuropathy, with long-term current use of insulin ([facility]); Type 2 diabetes mellitus with stage 3a chronic kidney disease, with long-term current use of insulin ([facility]) ([facility]); Long-term insulin use ([facility]) Start: 04-29-2024 End: 04-29-2024 ambulatory ASHLI ROSS Not Available Start: 04-24-2024 End: 04-24-2024 Refill Fredy Boswell [employer]AL[employer] CHEMIST Work Phone: [facility] Comment on above: Internal derangement of left shoulder (Primary Dx) Start: 04-23-2024 End: 04-23-2024 Telephone encounter Dank Campo MD Work Phone: [facility] Start: 04-21-2024 End: 04-21-2024 ambulatory Roma Lopez MD Facility:[facility] Start: 04-18-2024 End: 04-18-2024 Clinisync Result Encounter Generic External Data Provider [facility] External Department Unsolicited Start: 04-18-2024 End: 04-18-2024 Clinisync Result Encounter Generic External Data Provider [facility] External Department Unsolicited Start: 04-15-2024 End: 04-15-2024 ambulatory [facility] Work Phone: Start: 04-15-2024 End: 04-15-2024 Patient encounter procedure [facility] Work Phone: Start: 04-08-2024 End: 04-08-2024 Bamboo flowsheet Rebecca Dias PA Work Phone: [facility] Start: 04-08-2024 End: 04-08-2024 Bamboo flowsheet Rebeccaander Dias PA Work Phone: [facility] Start: 04-08-2024 End: 04-08-2024 Patient encounter procedure Rebecca FREY Work Phone: [facility] Comment on above: Pre-op examination ( Primary Dx); Preop examination Start: 04-08-2024 End: 04-08-2024 Preprocedural examination done Rebecca FREY Work Phone: [facility] Work Phone: Start: 04-08-2024 End: 04-08-2024 ambulatory REBECCA DIAS Not Available Start: 03-24-2024 End: 03-25-2024 Refill Fredy Boswell NP Work Phone: [facility] Comment on above: Internal derangement of left shoulder (Primary Dx) Start: 03-18-2024 End: 03-18-2024 Bamboo flowsheet Rebecca FREY Work Phone: [facility] Start: 03-18-2024 End: 03-18-2024 Bamboo flowsheet Rebecca FREY Work Phone: [facility] Start: 03-18-2024 End: 03-18-2024 External Result Encounter Rebecca FREY Work Phone: [facility] External Department Unsolicited Start: 03-18-2024 End: 03-18-2024 Orders Only Rebecca FREY Work Phone: [facility] Comment on above: Encounter for other preprocedural examination Start: 03-18-2024 End: 03-18-2024 Patient encounter status Rebecca FREY Work Phone: [facility] Start: 03-18-2024 End: 03-18-2024 Telephone encounter Rebecca FREY Work Phone: [facility] Start: 03-18-2024 Encounter for other preprocedural examination GREGORIA RALPH [facility] Start: 03-18-2024 End: 03-18-2024 Patient encounter procedure Rebecca FREY Work Phone: [facility] Comment on above: Preop examination (P rimary Dx) Start: 03-18-2024 End: 03-18-2024 Preprocedural examination done Rebecca FREY Work Phone: [facility] Start: 03-18-2024 End: 03-18-2024 ambulatory REBECCA DIAS [facility] Start: 03-17-2024 End: 03-17-2024 Telephone encounter Ashli M Jake DO Work Phone: [facility] 230 Start: 03-17-2024 End: 03-17-2024 ambulatory [facility] Work Phone: Start: 03-17-2024 End: 03-17-2024 Patient encounter procedure [facility] Gastroenterology Work Phone: Start: 03-12-2024 End: 03-12-2024 ambulatory HANNA BUTCHER [facility] Start: 03-10-2024 End: 03-10-2024 ambulatory Roma Lopez MD Facility:[facility] Start: 03-03-2024 End: 03-03-2024 Office outpatient visit 25 minutes Jr. Johanne Hdez DO Work Phone: [facility] Comment on above: Internal derangement of left shoulder (Primary Dx); Acute pain of left shoulder Start: 03-03-2024 End: 03-03-2024 ambulatory JOHANNE MURILLO Not Available Start: 03-03-2024 End: 03-03-2024 Juan Jose Hdez DO Work Phone: [facility] Start: 03-03-2024 End: 03-03-2024 Juan Jose Hdez DO Work Phone: [facility] Start: 02-28-2024 End: 02-28-2024 Telephone encounter Hanna Butcher MD Work Phone: [facility] Start: 02-25-2024 End: 02-25-2024 Office outpatient visit 15 minutes Hanna Butcher MD Work Phone: [facility] Comment on above: Obstructive sleep ap toñito syndrome (Primary Dx); Personal history of tobacco use, presenting hazards to health Start: 02-25-2024 End: 02-25-2024 ambulatory HANNA BUTCHER [facility] Start: 02-04-2024 End: 02-04-2024 Telephone encounter Dexter Krishnamurthy DPM Work Phone: [facility] Comment on above: Advice Only (Self Pa y Shoes) Start: 02-04-2024 End: 02-04-2024 ambulatory Peterson PETERSEN Facility:[facility] Start: 02-04-2024 End: 02-04-2024 Patient encounter procedure Peterson PETERSEN [facility] Start: 01-31-2024 End: 01-31-2024 ambulatory ASHLI ROSS Not Available Start: 01-28-2024 End: 01-28-2024 ambulatory Peterson PETERSEN Facility:[facility] Start: 01-28-2024 End: 01-28-2024 Patient encounter procedure Peterson PETERSEN [facility] Start: 01-03-2024 End: 01-03-2024 Telephone encounter Oskar Contreras MD Work Phone: [facility] Start: 12-13-2023 End: 12-15-2023 [facility] Comment on above: Obstructive sleep ap toñito syndrome; CSA (central sleep apnea) Start: 12-06-2023 End: 12-06-2023 Orders Only Gregoria Ralph MASTER [employer] CONTENT DIRECTOR Work Phone: [facility] Comment on above: Obstructive sleep ap toñito syndrome (Primary Dx) Start: 12-05-2023 End: 12-05-2023 Telephone encounter Aliza Escalera [facility] Start: 12-05-2023 End: 12-05-2023 ambulatory DANK CAMPO Not Available Start: 11-22-2023 End: 11-22-2023 ambulatory DEXTER A RUSHER Not Available Start: 11-14-2023 End: 11-14-2023 ambulatory DANK CAMPO Not Available Start: 11-05-2023 End: 11-05-2023 ambulatory Roma Lopez MD Facility: [facility] Start: 10-31-2023 End: 10-31-2023 ambulatory DEXTER A LAST Not Available Start: 10-30-2023 End: 10-30-2023 ambulatory Jyoti Roth Facility:[facility] Start: 10-30-2023 End: 10-30-2023 ambulatory ASHLI ROSS Not Available Start: 10-17-2023 End: 10-17-2023 ambulatory DEXTER A SUKHWINDERHER Not Available Start: 10-15-2023 End: 10-15-2023 ambulatory Roma Lopez MD Facility: [facility] Start: 10-11-2023 End: 10-11-2023 ambulatory DANK CAMPO Not Available Start: 10-09-2023 End: 10-09-2023 ambulatory JYOTI ROTH Not Available Start: 10-01-2023 End: 10-01-2023 ambulatory Roma Lopez MD Facility: [facility] Start: 09-27-2023 End: 09-27-2023 ambulatory DEXTER A RUSHER Not Available Start: 09-05-2023 End: 09-05-2023 ambulatory DEXTER A SUKHWINDERHER Not Available Start: 08-29-2023 End: 08-29-2023 ambulatory DANK CAMPO Not Available Start: 08-27-2023 Telephone encounter [facility] Start: 08-23-2023 End: 08-23-2023 ambulatory [facility] Start: 08-22-2023 End: 08-23-2023 ambulatory [facility] Start: 08-20-2023 End: 08-20-2023 ambulatory Dank Campo Facility:[facility] Start: 08-17-2023 Telephone encounter Gregoria shields MASTER [employer]LA[employer] CONTENT DIRECTOR Work Phone: [facility] - Sleep Disorders Comment on above: Sleep Lab (CPAP) Start: 08-15-2023 End: 08-15-2023 Office outpatient visit 25 minutes Gregoria Corrie Sheasaul MASTER [employer]WE[employer] CONTENT DIRECTOR Work Phone: [facility] Pulmonary/Sleep Medicine Comment on above: Personal history of tobacco use, presenting hazards to health (Primary Dx); Obstructive sleep apnea syndrome; CSA (central sleep apnea) Start: 08-15-2023 End: 08-15-2023 ambulatory [facility] Start: 08-09-2023 End: 08-09-2023 Patient encounter procedure MD Dank Campo Work Phone: [facility] [facility] Work Phone: Start: 08-09-2023 End: 08-09-2023 ambulatory MD Dank Campo Work Phone: [facility] Ctr Work Phone: Start: 08-09-2023 End: 08-09-2023 ambulatory DEXTRE KRISHNAMURTHY Not Available Start: 08-02-2023 Telephone encounter Aliza Recinos [facility] Pulmonary/Sleep Medicine Start: 08-01-2023 Chart abstracting Jr. Johanne Hdez DO Work Phone: [facility] Start: 07-30-2023 End: 07-30-2023 Office outpatient visit 25 minutes Ashli Ross DO Work Phone: [facility] 230 Comment on above: Class 2 severe obesi ty due to excess calories with serious comorbidity and body mass index (BMI) of 36.0 to 36.9 in adult ([facility]) (Primary Dx); Type 2 diabetes mellitus with diabetic polyneuropathy, with long-term current use of insulin ([facility]) Start: 07-24-2023 End: 07-24-2023 Patient encounter procedure MD Dank Campo Work Phone: [facility] Ctr-XRay Main [place] Work Phone: Start: 07-17-2023 End: 07-17-2023 ambulatory MD Dank Campo Work Phone: [facility] Work Phone: Start: 07-17-2023 End: 07-17-2023 Patient encounter procedure MD Dank Campo Work Phone: [facility] Ctr-MRI Main [place] Work Phone: Start: 06-26-2023 End: 06-26-2023 ambulatory MD Dank Campo Work Phone: [facility] Work Phone: Start: 06-26-2023 End: 06-26-2023 Patient encounter procedure MD Dank Campo Work Phone: [facility]-MRI [address] Work Phone: Start: 04-27-2023 End: 04-27-2023 Admission to same day surgery center MD Dank Campo Work Phone: [facility] Ctr-Digestive Health Work Phone: Start: 04-27-2023 End: 04-27-2023 ambulatory MD Dank Campo Work Phone: [facility] Work Phone: Start: 04-10-2023 End: 04-10-2023 ambulatory Imad Asaad Other [employer] Other Start: 04-10-2023 Office outpatient ne w 45 minutes Imad Asaad [facility] Start: 03-20-2023 End: 03-20-2023 ambulatory Imad Asaad Other [employer] Other Start: 03-20-2023 Telephone encounter Imad Asaad [facility] Start: 02-12-2023 End: 02-12-2023 ambulatory Peterson PETERSEN Facility:[facility] Start: 02-12-2023 End: 02-12-2023 Patient encounter procedure Peterson PETERSEN [facility] Start: 02-06-2023 End: 02-06-2023 Lab Drop off ROSALVA MURO [facility] Start: 02-06-2023 End: 02-06-2023 ambulatory ROSALVA MURO Facility:[facility] Start: 02-06-2023 End: 02-06-2023 Patient encounter procedure DEJUAN PETERSEN [facility] Start: 10-17-2022 End: 10-18-[address] DANK CAMPO Facility:[facility] Start: 09-20-2022 End: 09-20-2022 ambulatory Imad Asaad Other [employer] Other Start: 09-20-2022 Telephone encounter Imad Asaad [facility] Start: 09-14-2022 End: 09-14-[address] DANK CAMPO Facility:[facility] Start: 09-12-2022 End: 09-13-[address] DANK CAMPO Facility:[facility] Start: 07-24-2022 Telephone encounter Imad Asaad [facility] Start: 07-24-2022 End: 07-24-2022 Admission to same day surgery center MD Dank Campo Work Phone: [facility] C[facility]-Digestive Health Work Phone: Start: 07-24-2022 End: 07-24-2022 ambulatory MD Dank Campo Work Phone: [facility] Work Phone: Start: 07-20-2022 End: 07-20-2022 ambulatory Imad Asaad Other [facility] Other Start: 07-20-2022 Patient encounter procedure Imad Asaad [facility] Start: 05-10-2022 End: 05-11-[address] DANK CAMPO Facility:[facility] Start: 04-14-2022 End: 04-15-[address] SORIN SHORE Facility:[facility] Start: 02-03-2022 End: 02-03-2022 Patient encounter procedure Peterson PETERSEN [facility] Start: 01-30-2022 End: 01-31-2022 ambulatory REBECCA DIAS . Facility:[facility] Start: 01-27-2022 End: 01-28-[address] PETERSON PETERSEN . Facility: Procedures Date Procedure Procedure Detail Performing Clinician Start: 07-31-2024 Hemoglobin glycosylated a1c Ashli green DO Work Phone: Start: 07-30-2024 Supine abdominal X-ray Dank Campo MD Work Phone: Start: 05-29-2024 Radex foot complete minimum 3 views Dexter BURRM Work Phone: Start: 04-29-2024 Hemoglobin glycosylated a1c [...] Phone: Start: 03-18-2021 Laparoscopic cholecystectomy Peterson MARA ERS Start: 02-11-2020 Colonoscopy Rebecca FREY Work Phone: [...] cuff surgery MD Dank Campo Work Phone: Comment on above: x3 right, x1 left Partial repair of rotator cuff Peterson PETERSEN Tonsillectomy Peterson PETERSEN Plan of Treatment Date Care Activity Detail Author Start: 04-27-2033 Screening for malignant neoplasm of colon [facility] Start: 01-20-2031 DTaP,Tdap and Td Vaccines (3 - Td or Tdap) DTaP,Tdap and Td Vaccines (3 - Td or Tdap) [facility] Start: 02-10-2030 Screening for malignant neoplasm of colon [facility] Start: 08-27-2025 Glaucoma screening Diabetes: Retinopathy Screening [facility] Start: 02-24-2025 Adult BMI Screening Adult BMI Screening [facility] Start: 02-24-2025 Tobacco Screening Tobacco Screening [facility] Start: 12-12-2024 Adult BMI Screening Adult BMI Screening [facility] Start: 10-30-2024 End: 10-30-2024 Patient encounter procedure 10/30/2024 11:15 AM EDT Office Visit [facility] [address] [place] [address] Ashli Ross DO [address] [place] [address] [facility] FM 230 Start: 10-28-2024 Hemoglobin A1c measurement Diabetes: Hemoglobin A1C [facility] Start: 09-03-2024 Urine screening for protein Diabetes: Urine Protein Screening [facility] Start: 08-27-2024 End: 08-27-2024 Patient encounter procedure 08/27/2024 7:30 AM EDT Office Visit [facility] [address] [place] [address] Dank Campo MD [address] [place] [address] [facility] Start: 08-22-2024 End: 08-22-2024 ambulatory 08/22/2024 8:00 AM EST Treatment [facility] [address] [facility] [address] [place] [address] Alma Berkowitz, PT [facility] Start: 08-18-2024 End: 08-18-2024 ambulatory 08/18/2024 7:30 AM EST Treatment [facility] [address] [facility] [address] [place] [address] Kaden Sparks, SCOUT LEASER [facility] Start: 08-15-2024 Adult BMI Screening Adult BMI Screening [facility] Start: 08-15-2024 Tobacco Screening Tobacco Screening [facility] Start: 08-14-2024 End: 08-14-2024 ambulatory 08/14/2024 8:00 AM EST Treatment [facility] [address] [place] [address] Alma Berkowitz, PT [facility] Start: 08-11-2024 End: 08-11-2024 ambulatory 08/11/2024 7:30 AM EST Treatment [facility] [address] [place] [address] Kaden Sparks, SCOUT LEASER [facility] Start: 08-07-2024 End: 08-07-2024 ambulatory 08/07/2024 8:00 AM EST Treatment [facility] [address] [place] [address] Alma Berkowitz, PT [facility] Start: 08-04-2024 End: 08-04-2024 ambulatory 08/04/2024 7:30 AM EST Treatment [facility] [address] [place] [address] Kaden Sparks, SCOUT LEASER [facility] Start: 07-31-2024 End: 07-31-2024 Patient encounter procedure 07/31/2024 10:30 AM EST Office Visit [facility] [address] [place] [address] Ashli Ross, [address] [place] [address] [facility] 230 Start: 07-31-2024 End: 07-31-2024 ambulatory 07/31/2024 8:00 AM EST Treatment [facility] [address] [place] [address] Kaden Sparks, SCOUT LEASER [facility] Start: 07-30-2024 Hemoglobin A1c measurement Diabetes: Hemoglobin A1C [facility] Start: 07-28-2024 End: 07-28-2024 ambulatory [facility] Start: 07-24-2024 End: 07-24-2024 ambulatory 07/24/2024 8:00 AM EST Treatment [facility] [address] [place] [address] Alma Berkowitz, PT [facility] Start: 07-23-2024 End: 07-23-2024 Patient encounter procedure 07/23/2024 9:15 AM EST Office Visit [facility] [address] [place] [address] Rebecca Dias, PA [address] [facility] [address] [place] [address] [facility] Start: 07-21-2024 End: 07-21-2024 ambulatory 07/21/2024 8:00 AM EST Treatment [facility] [address] [facility] [address] [place] [address] Kaden Sparks, SCOUT LEASER [facility] Start: 07-16-2024 End: 07-16-2024 ambulatory 07/16/2024 8:00 AM EST Treatment [facility] [address] [facility] [address] [place] [address] Kaden Sparks, SCOUT LEASER [facility] Start: 07-14-2024 End: 07-14-2024 Patient encounter procedure 07/14/2024 2:00 PM EST Office Visit [facility] [place] [address] Hanna Butcher MD [address] [place] [address] [facility] Start: 07-01-2024 End: 07-01-2024 ambulatory 07/01/2024 9:00 AM EST Treatment [facility] [address] [facility] [address] [place] [address] Alma Berkowitz, PT [facility] Start: 06-26-2024 End: 06-26-2024 ambulatory 06/26/2024 9:00 AM EST Treatment [facility] [address] [facility] [address] [place] [address] Kaden Sparks, SCOUT LEASER [facility] Start: 06-25-2024 End: 06-25-2024 Patient encounter procedure 06/25/2024 8:45 AM EST Office Visit [facility] [address] [place] [address] Rebecca Dias, PA [address] [place] [address] [facility] Start: 06-24-2024 End: 06-24-2024 ambulatory 06/24/2024 9:00 AM EST Treatment [facility] [address] [place] [address] Alma Berkowitz, PT [facility] Start: 06-20-2024 End: 06-20-2024 ambulatory 06/20/2024 8:00 AM EST Treatment [facility] [address] [place] [address] Justina Carrillo, PT [address] [place] [address] [facility] Start: 06-16-2024 End: 06-16-2024 ambulatory 06/16/2024 10:00 AM EST Treatment [facility] [address] [place] [address] Alma Berkowitz, PT [facility] Start: 06-06-2024 End: 06-06-2024 Patient encounter procedure 06/06/2024 9:00 AM EST Office Visit [facility] [address] [place] [address] Rebecca Dias, PA [address] [place] [address] [facility] Start: 06-05-2024 End: 06-05-2024 ambulatory [facility] Start: 06-02-2024 End: 06-02-2024 ambulatory 06/02/2024 12:00 PM EST Treatment [facility] [address] [place] [address] Kaden Sparks [employer] LE[employer] [facility] Start: 05-29-2024 End: 05-29-2024 Patient encounter procedure 05/29/2024 2:45 PM EST Office Visit [facility] [address] [place] [address] Dexter Krishnamurthy DPM [address] [place] [address] [facility] Start: 05-29-2024 End: 05-29-2024 ambulatory [facility] Start: 05-28-2024 End: 05-28-2024 Patient encounter procedure [facility] Comment on above: Arrived Start: 05-26-2024 End: 05-26-2024 ambulatory 05/26/2024 10:00 AM EST Treatment [facility] [address] [place] [address] Kaden Sparks SCOUT LEASER [facility] Start: 05-22-2024 End: 05-22-2024 ambulatory [facility] Start: 05-19-2024 End: 05-19-2024 ambulatory 05/19/2024 7:00 AM EST Treatment [facility] [address] [place] [address] Kaden Sparks SCOUT LEASER [facility] Start: 05-13-2024 End: 05-13-2024 ambulatory 05/13/2024 9:30 AM EST Evaluation [facility] [address] [place] [address] Alma Berkowitz, PT [facility] Start: [...] olyneuropathy, with long-term current use of insulin ([facility]) Start: 04-08-2024 End: 04-08-2024 Patient encounter procedure [facility] Comment on above: Pre-op examination (Primary Dx) Start: 03-25-2024 End: 03-25-2024 Patient encounter procedure 03/25/2024 1:30 PM EDT Procedure Visit [facility] Jr. Johanne Hdez, DO [address] [facility] [address] [place] [address] [facility] Start: 03-18-2024 End: 03-13-2025 Basic metabolic 1998 panel - Serum or Plasma Basic metabolic panel Lab Routine Preop examination Expected: 03/18/2024 (Approximate), Expires: 03/13/2025 [facility] Work Phone: Comment on above: Expected: 03/18/2024 (Approximate), Expi res: 03/13/2025 Start: 03-18-2024 End: 03-18-2025 Basic metabolic 2000 panel - Serum or Plasma Basic Metabolic Panel Lab Routine Encounter for other preprocedural examination Expected: 03/18/2024, Expires: 03/18/2025 [facility] Work Phone: Comment on above: Expected: 03/18/2024, Expires: Start: 03-18-2024 End: 03-18-2025 CBC W Auto Differential panel - Blood [facility] Comment on above: Expected: 03/18/2024 (Approximate), Expi res: 03/13/2025 Expected: 03/18/2024 , Expires: 03/18/2025 Start: 03-18-2024 End: 03-13-2025 Prothrombin time (PT) in Blood by Coagulation assay Protime-INR Lab Routine Preop examination Expected: 03/18/2024 (Approximate), Expires: 03/13/2025 [facility] Comment on above: Expected: 03/18/2024 (Approximate), Expi res: 03/13/2025 Start: 03-18-2024 End: 03-18-2025 Protime & INR Protime & INR Lab Routine Encounter for other preprocedural examination Expected: 03/18/2024, Expires: 03/18/2025 [employer] Work Phone: Comment on above: Expected: 03/18/2024, Expires: Start: 03-18-2024 Subsequent hospital visit by physician 03/18/2024 9:07 AM EDT Hospital Encounter [facility] - [facility] [address] [place] [address] [facility] Comment on above: Arrived Start: 03-18-2024 End: 03-18-2024 Patient encounter procedure [facility] Comment on above: Preop examination Start: 03-03-2024 End: 03-03-2024 Patient encounter procedure 03/03/2024 2:30 PM EDT Office Visit [facility] [address] [place] [address] Jr. Johanne Hdez, DO [address] [place] [address] Arrived [facility] Comment on above: Arrived Start: 02-25-2024 End: 02-24-2025 CT Chest for screening WO contrast CT low dose lung screening (Annual) Imaging Routine Personal history of tobacco use, presenting hazards to health Expected: 02/25/2024, Expires: 02/24/2025 [employer] Work Phone: Comment on above: Expected: 02/25/2024, Expires: Start: 02-25-2024 End: 02-25-2024 Patient encounter procedure [facility] Start: 02-17-2024 COVID-19 Vaccine ( season) COVID-19 Vaccine ( season) [facility] [employer] [facility] Start: 02-17-2024 Influenza vaccination [facility] Start: 12-13-2023 End: 12-13-2023 Clinical Support 12/13/2023 8:00 PM EDT [facility] [address] [place] [address] [facility] Start: 11-19-2023 End: 11-19-2023 Clinical Support 11/19/2023 8:00 PM EDT Clinical Support [facility] Sleep [facility] [address] [facility] [place] [id number] [facility] Start: 10-29-2023 End: 10-29-2023 Patient encounter procedure 10/29/2023 1:15 PM EDT Office Visit [facility] [address] [place] [address] Ashli Ross DO [address] [place] [address] [facility] 230 Start: 10-28-2023 Hemoglobin A1c measurement Diabetes: Hemoglobin A1C [facility] Start: 08-29-2023 End: 08-29-2023 Patient encounter procedure 08/29/2023 7:45 AM EDT [facility] [address] [place] [address] Dank Campo MD [address] [place] [address] [facility] Start: 08-23-2023 End: 08-23-2023 Patient encounter procedure [facility] Start: 08-15-2023 End: 08-15-2024 CT Chest for screening WO contrast CT low dose lung screenin (3mo 6mo follow-up) Imaging Routine Personal history of tobacco use, presenting hazards to health Expected: 08/15/2023, Expires: 08/15/2024 [facility] Work Phone: Comment on above: Expected: 08/15/2023, Expires: Start: 08-15-2023 End: 08-15-2024 Echo complete W/O contrast Echo complete W/O contrast Echocardiography Routine Obstructive sleep apnea syndrome CSA (central sleep apnea) Expected: 08/15/2023, Expires: 08/15/2024 [facility] Comment on above: Expected: 08/15/2023, Expires: Start: 08-09-2023 End: 08-09-2023 Patient encounter procedure 08/09/2023 8:30 AM EST Office Visit [facility] [address] [place] [phone] Dexter Krishnamurthy, DPM [address] [place], [place] [id number] [facility] Start: 08-01-2023 End: 08-01-2023 Patient encounter procedure 08/01/2023 10:30 AM EST Office Visit [facility] [address] [place] [address] Jr. Johanne Hdez, DO [address] [facility] [address] [place] [address] [facility] Start: 04-27-2023 [facility] Start: 04-11-2023 Administration of varicella zoster vaccine Zoster (Shingles) Vaccine (3 of 3) [facility] Start: 02-16-2023 COVID-19 Vaccine ( season) COVID-19 Vaccine ( season) [facility] Start: 02-16-2023 COVID-19 Vaccine ( season) COVID-19 Vaccine ( season) [facility] Start: 02-16-2023 Influenza vaccination Influenza Vaccine [facility] Start: 07-24-2022 [facility] Start: 04-15-2022 Adult BMI Screening Adult BMI Screening [facility] Start: 09-15-2020 Abdominal aortic aneurysm screening Abdominal Aortic Aneurysm (AAA) Screen [facility] Start: 09-15-2020 Fall Risk Screening Fall Risk Screening [facility] Start: 09-15-1974 Urine screening for protein Diabetes: Urine Protein Screening [facility] Start: 09-15-1973 Adult BMI Follow Up Plan Adult BMI Follow Up Plan [facility] Start: 1967 Depression Screening Depression Screening [facility] Start: 1967 Tobacco Screening Tobacco Screening [facility] Start: 09-15-1965 Glaucoma screening Diabetes: Retinopathy Screening [facility] Start: 1955 Medicare Annual Wellness (AWV) Medicare Annual Wellness (AWV) [facility] Start: 1955 Medicare Annual Wellness Visit Medicare Annual Wellness Visit [facility] Start: 1955 Screening for malignant neoplasm of colon [facility] Patient Education [facility] Work Phone: End: 08-15-2024 Polysomnography 4 or more parameters with PAP titration Polysomnography 4 or more parameters with PAP titration Sleep Center Routine Obstructive sleep apnea syndrome CSA (central sleep apnea) 1 Occurrences starting 08/15/2023 until 08/15/2024 [facility] Comment on above: 1 Occurrences starting 08/15/2023 until 08/15/2024 Supine abdominal X-ray [facility] XR Shoulder - left 2 Views XR shoulder 2+ views left Imaging Routine Acute pain of left shoulder 03/03/2024 2:47 PM EDT [facility] Work Phone: Immunizations Immunization Date Immunization Notes Care Provider Fa [facility] 02-28-2024 ABRYSVO - Respirator y syncytial virus (RSV), vaccine, bivalent, protein subunit RSV prefusion F, diluent reconstituted, 0.5 mL, PF Ashli Petznick DO Work Phone: [facility] 02-28-2024 influenza, high dose seasonal, preservative-free Ashli Petznick DO Work Phone: [facility] 02-28-2024 influenza virus vaccine, unspecified formulation JrJitendra Stepanic DO Work Phone: [facility] 04-22-2023 zoster vaccine recombinant Ashli Petznick DO Work Phone: [facility] 03-23-2023 RSV, recombinant, protein subunit RSVpreF, adjuvant reconstitu, 120mcg/0.5mL, PF (Arexvy) Ashli Petznick DO Work Phone: [facility] 02-14-2023 influenza virus vaccine, unspecified formulation Peterson [employer] [facility] 02-14-2023 Influenza, Seasonal, Quadrivalent, Adjuvanted Ashli Petznick DO Work Phone: [facility] 02-14-2023 zoster vaccine recombinant Ashli Petznick DO Work Phone: [facility] 02-14-2023 zoster vaccine, unspecified formulation [facility] 04-09-2022 COVID-19 mRNA Bivale nt Booster (Pfizer) MD Dakn Campo Work Phone: [facility] 04-09-2022 influenza virus vaccine, unspecified formulation Peterson [employer] [facility] 04-09-2022 Influenza, Seasonal, Quadrivalent, Adjuvanted Ashli Petznick DO Work Phone: [facility] 04-13-2021 COVID-19 mRNA, Comirnaty (Pfizer) MD Dank Campo Work Phone: [facility] 02-22-2021 influenza virus vaccine, unspecified formulation Peterson [employer] [facility] 02-22-2021 Influenza, Seasonal, Quadrivalent, Adjuvanted Ashli Petznick DO Work Phone: [facility] 02-22-2021 pneumococcal polysaccharide vaccine, 23 valent Ashli Petznick DO Work Phone: [facility] 02-16-2021 pneumococcal conjuga te vaccine, 13 valent [employer] [facility] 01-20-2021 tetanus and diphther ia toxoids, adsorbed, preservative free, for adult use (5 Lf of tetanus toxoid and 2 Lf of diphtheria toxoid) Kike Bernal Other [employer] Other 01-20-2021 tetanus and diphther ia toxoids, adsorbed, preservative free, for adult use (2 Lf of tetanus toxoid and 2 Lf of diphtheria toxoid) Peterson PETERSEN [facility] 01-17-2021 influenza virus vaccine, unspecified formulation Peterson PETERSEN [facility] 01-17-2021 influenza, seasonal, injectable Ashli Petznick DO Work Phone: [facility] 01-17-2021 Moderna SARS-CoV-2 Vaccination Ashli Petznick DO Work Phone: [facility] 10-16-2020 SARS-CoV-2 (COVID-19 ) mRNA BNT-162b2 vax Peterson PETERSEN [facility] 10-01-2020 COVID-19 mRNAAlfred (Pfizer) MD Dank Campo Work Phone: [facility] 09-08-2020 COVID-19 mRNAHarrisonirmandy (Pfizer) MD Dank Campo Work Phone: [facility] 02-17-2020 influenza virus vaccine, unspecified formulation Peterson PETERSEN [facility] [place] 02-17-2020 influenza, injectabl e, quadrivalent, preservative free Ashli Petznick DO Work Phone: [facility] 02-09-2020 influenza, high dose seasonal, preservative-free Ashli Petznick DO Work Phone: [facility] 03-15-2019 influenza virus vaccine, unspecified formulation Peterson PETERSEN [facility] 03-15-2019 influenza, injectabl e, quadrivalent, preservative free Ashli Petznick DO Work Phone: [facility] 02-25-2018 influenza virus vaccine, unspecified formulation Getable [facility] 02-25-2018 influenza, injectabl e, quadrivalent, preservative free Ashli Petznick DO Work Phone: [facility] 05-30-2017 pneumococcal conjuga te vaccine, 13 valent Ashli Petznick DO Work Phone: [facility] 05-30-2017 pneumococcal polysaccharide vaccine, 23 valent Ashli Petznick DO Work Phone: [facility] 03-02-2017 influenza nasal, unspecified formulation Ashli Petznick DO Work Phone: [facility] 03-02-2017 influenza virus vaccine, unspecified formulation Getable [facility] 03-02-2017 influenza, injectabl e, quadrivalent, preservative free Ashli Petznick DO Work Phone: [facility] 03-05-2016 influenza virus vaccine, unspecified formulation Getable [facility] 03-05-2016 influenza, injectabl e, quadrivalent, preservative free Ashli Petznick DO Work Phone: [facility] 03-05-2016 influenza, seasonal, injectable Ashli Petznick DO Work Phone: [facility] 02-18-2015 zoster vaccine, live Ashli Petznick DO Work Phone: [facility] 02-01-2015 influenza virus vaccine, unspecified formulation Getable [facility] 02-01-2015 influenza, seasonal, injectable Ashli Petznick DO Work Phone: [facility] 08-18-2014 tetanus toxoid, redu inocencio diphtheria toxoid, and acellular pertussis vaccine, adsorbed Ashli Ross DO Work Phone: [facility] 08-04-2013 pneumococcal conjuga te vaccine, 13 valent Ashli Ross DO Work Phone: [facility] Healthcare Payers Date Payer Category Payer Self-pay [id number] 2023 Unknown [id number] 2021 Medicare (Managed Care) [employer] [id number] 2020 Medicare [id number]. 1.13.693. [id number] 2013 Unknown [id number]. 1.13.424. 2.7.3.496192.315 1959 Medicare [id number] 1955 Unknown [id number] 2.16.840.1.960132.3.579. 2.593 1955 Unknown [id number] 2.16.840.1.232678.3.579. 2.593 1955 Unknown [id number] 2.16.840.1.837342.3.579. 2.593 1955 Unknown [id number] 2.16.840.1.412278.3.579. 2.593 1955 Unknown [id number] 2.16.840.1.127460.3.579. 2.593 1955 Unknown [id number] 2.16.840.1.142425.3.579. 2.593 1955 Unknown [id number] 2.16.840.1.524572.3.579. 2.593 1955 Unknown [id number] 2.16.840.1.408163.3.579. 2.593 1955 Unknown [id number] 2.16.840.1.851114.3.579. 2.1286 1955 Unknown [id number] 2.16.840.1.523167.3.579. 2.727 1955 Unknown [id number] 2.16.840.1.312989.3.579. 2.727 1955 Unknown [id number] 2.16.840.1.423765.3.579. 2.727 1955 Unknown [id number] 2.16.840.1.137366.3.579. 2.727 1955 Unknown [id number] 2.16.840.1.141632.3.579. 2.727 1955 Unknown [id number] 2.16.840.1.645833.3.579. 2.727 1955 Unknown [id number] 2.16.840.1.049774.3.579. 2.1286 1955 Unknown [id number] 2.16.840.1.361786.3.579. 2.1286 1955 Unknown [id number] 2.16.840.1.461797.3.579. 2.1286 1955 Unknown [id number] 2.16.840.1.826206.3.579. 2.1286 1955 Unknown [id number] 2.16.840.1.391343.3.579. 2.1286 1955 Unknown [id number] 2.16.840.1.265073.3.579. 2.1286 1955 Unknown [id number] 2.16.840.1.911060.3.579. 2.125 1955 Unknown [id number] 2.16.840.1.519622.3.579. 2.125 1955 Unknown [id number] 2.16.840.1.283999.3.579. 2.125 1955 Unknown [id number] 2.16.840.1.818025.3.579. 2.1258 1955 Unknown [id number] 2.16.840.1.538057.3.579. 2.1258 1955 Unknown [id number] 2.16840.1.479852.3.579. 2.1258 1955 Unknown [id number] 2.16.840.1.092271.3.579. 2.1258 1955 Unknown [id number] 2.16.840.1.845789.3.579. 2.1258 1955 Unknown [id number] 2.16.840.1.570046.3.579. 2.1258 1955 Unknown [id number] 2.16.840.1.502141.3.579. 2.125 1955 Unknown [id number] 2.16.840.1.524654.3.579. 2.1258 1955 Unknown [id number] 2.16.840.1.763027.3.579. 2.1258 1955 Unknown [id number] 2.16.840.1.247558.3.579. 2.1258 1955 Unknown [id number] 2.16.840.1.583168.3.579. 2.125 1955 Unknown [id number] 2.16.840.1.169422.3.579. 2.1258 1955 Unknown [id number] 2.16.840.1.395648.3.579. 2.1258 1955 Unknown [id number] 2.16.840.1.693028.3.579. 2.1258 1955 Unknown [id number] 2.16.840.1.586049.3.579. 2.1258 1955 Unknown [id number] 2.16.840.1.613975.3.579. 2.1258 1955 Unknown [id number] 2.16840.1.804355.3.579. 2.1258 1955 Unknown [id number] 2.16840.1.801660.3.579. 2.1258 1955 Unknown [id number] 2.16840.1.699989.3.579. 2.1258 1955 Unknown [id number] 2.16840.1.059157.3.579. 2.1258 1955 Unknown [id number] 2.16840.1.370947.3.579. 2.1258 1955 Unknown [id number] 2.16840.1.907828.3.579. 2.1258 1955 Unknown [id number] 2.16.840.1.670614.3.579. 2.1258 1955 Unknown [id number] 2.16.840.1.204370.3.579. 2.1258 1955 Unknown [id number] 2.16.840.1.083644.3.579. 2.1258 1955 Unknown [id number] 2.16.840.1.845521.3.579. 2.1258 1955 Unknown [id number] 2.16.840.1.818503.3.579. 2.9 1955 Unknown [id number] 2.16.840.1.893121.3.579. 2.1258 1955 Unknown [id number] 2.16.840.1.620847.3.579. 2.1258 1955 Unknown [id number] 2.16.840.1.138708.3.579. 2.1258 1955 Unknown [id number] 2.16.840.1.897611.3.579. 2.1258 1955 Unknown [id number] 2.16.840.1.227911.3.579. 2.1258 1955 Unknown [id number] 2.16.840.1.524090.3.579. 2.1258 1955 Unknown [id number] 2.16.840.1.169393.3.579. 2.1258 1955 Unknown [id number] 2.16.840.1.207975.3.579. 2.1258 1955 Unknown [id number] 2.16.840.1.784701.3.579. 2. 1955 Unknown [id number] 2.16.840.1.739250.3.579. 2. 1955 Unknown [id number] 2.16.840.1.219596.3.579. 2. 1955 Unknown [id number] 2.16.840.1.565639.3.579. 2. 1955 Unknown [id number] 2.16.840.1.239821.3.579. 2. 1955 Unknown [id number] 2.16.840.1.861084.3.579. 2. 1955 Unknown [id number] 2.16.840.1.842209.3.579. 2.196 1955 Unknown [id number] 2.16.840.1.994938.3.579. 2.196 Medicare Medicare [id number] Unknown [place] BC/BS [id number] Unknown Regular Insurance [id number] Unknown [id number] 2.16.840.1.584305.3.579. 2.531 Unknown [id number] 2.16.840.1.545940.3.579. 2.531 Unknown [id number] 2.16.840.1.816560.3.579. 2.531 Unknown [id number] 2.16.840.1.699935.3.579. 2.531 Unknown [id number] 2.16.840.1.884052.3.579. 2.531 Worker's Compensation [employer] [id number] Worker's Compensation [id number] Social History Date Type Detail Facility Start: 02-03-2022 End: 08-15-2023 Ex-smoker (finding) [facility] Start: 06-29-2020 End: 01-09-2023 Male [facility] Start: 1955 Sex Assigned At Male F [facility] Start: 06-18-1974 End: 2021 History of tobacco use Current smoker [facility] Start: 06-18-1974 End: 2021 History of tobacco use Cigarette Smoker [facility] Start: 06-29-2020 End: 12-11-2022 Cigarettes smoked current (pack per day) - Reported 1.5 [facility] Start: 12-11-2022 End: 08-15-2023 Tobacco use and exposure Smokeless tobacco non-user [facility] Start: 07-30-2023 End: 07-31-2024 Alcohol intake Ex-drinker (finding) [facility] Within the last year , have you been afraid of your partner or ex-partner? No [facility] Do you belong to any clubs or organizations such as [employer]aritan groups, [employer], [employer] or athletic groups, or school groups? Yes [...] Not on file [facility] Start: 07-30-2024 End: 07-31-2024 Sex Male (finding) [facility] Start: 08-16-2023 End: 02-25-2024 Alcoholic beverage intake Current non-drinker of [facility] (finding) [facility] Start: 12-22-2020 Tobacco smoking stat [facility] Smokes tobacco daily [facility] Medical Equipment Procedure Code Equipment Code Equipment Origin al Text Equipment Identifier Dates EGD (esophagogastroduod enoscopy) Video capsule endoscopy system [id number] FDA Start: 08-18-2020 [id number] Start: 09-19-2022 use to test BLOO D SUGAR THREE TIMES DAILY [id number] Start: 09-19-2022 use to test BLOO D SUGAR THREE TIMES DAILY [id number] Start: 11-01-2022 USE DIRECTED FOUR TIMES DAILY [id number] Start: 02-21-2024 Fsbs bid [id number] Start: 12-17-2023 USE DIRECTED FOUR TIMES DAILY [id number] Start: 11-21-2023 USE DIRECTED FOUR TIMES DAILY [id number] Start: 06-05-2024 Swivelock 4.75 - Sna - [id number] Start: 12-10-2017 Incv/Swivelock 4.75 Use [id number] - Sna - [id number] Start: 07-19-2020 Goals Date Patient Goal Desired Activity /State Personal health goal Comment on above: Formatting of this n ote might be different from the original. Evaluation of progress towards goal: Home self care with childrens support Functional Status Date Assessment Result Facility 02-04-2024 Functional Status N/A [facility] 02-12-2023 Functional Status N/A [facility] 02-03-2022 N/A [facility] Clinical Notes 11-04-2020 to 07-31-2024 Ashli Ross, DO - 07/31/2024 1:15 PM Lida Ross, DO - 07/31/2024 10:30 AM EST Note Date & Type Note Facility 07-31-2024 History of Presen t illness Narrative Associated Problem(s): Type 2 diabetes mellitus with diabetic polyneuropathy, with long-term current use of insulin ([facility]) During the appointment today all [...] should also avoid any sugary drinks. , Instructed on the importance of taking insulin before eating. If it has been more than 30-45 min since eating they should not give the meal dose but should just give a correction insulin dose. , Instructions given today include: Insulin instructions and Dietary education. He needs to get better with his diet in order to improve control of his diabetes. I also recommended getting into a regular exercise routine as well with the goal of at least 150 min moderate intensity exercise weekly. Will increase insulin to help as well. Images from the original note were not [...] CGM - LINKED- on a daily basis. Bg running high throughout the day and he will rise after breakfast and dinner. Last A1c: 7.9 (04/29/24) Last eye exam: Due Current concerns include: July 14 2 steroid shots in his back by Pain management and another course on Sunday will be having ablation done in the near future. Bilateral knee injections on July 21 by pain management. On amoxicillin for a tooth infection, tooth was pulled on Sunday. Bg levels: still running higher. Has not been strict with his diet. Diet: limiting carbs and portions. Drinks: water, powerade zero, 2% milk Exercise: None Hypoglycemia: none SUBJECTIVE: PROBLEM LIST SOCIAL ALLERGIES: Patient Active [...] hypotension Osteoarthritis of knee Benign essential hypertension ([facility]) Primary osteoarthritis, right shoulder Prostate cancer ([facility]) Proteinuria Hypercholesteremia ([facility]) Renal failure 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, with long-term current use of insulin ([facility]) Long-term insulin use ([facility]) Lumbar spondylosis Bilateral leg edema Encounter for long-term (current) use of medications Class 2 severe obesity due to excess calories with serious comorbidity and body mass index (BMI) of 37.0 to 37.9 in adult ([facility]) FRANK (obstructive sleep apnea) Chronic fatigue Right hand pain Hypersomnia Fasciculations Memory impairment Bilateral carpal tunnel syndrome Foot drop, right Lumbar radiculopathy Cervical radiculopathy Family history of Parkinson's disease JARAD (generalized anxiety disorder) ([facility]) Type 2 diabetes mellitus with stage 3b chronic kidney disease, with long-term current use of insulin ([facility]) ([facility]) Type 2 diabetes mellitus with hyperglycemia, with long-term current use of insulin ([facility]) Social History Tobacco Use Smoking status: Former Current packs/day: 1.50 Types: Cigarettes Smokeless tobacco: Never Tobacco comments: Last smoked: 3-6 months ago Heavy cigarette smoker (20-39 cigs/day) Vaping Use Vaping status: Never Used Substance Use Topics Alcohol use: Not Currently Comment: Caffeine intake: none Drug use: Never No Known Allergies Synopsis SmartLink 07/31/2024 Antidiabetic medications Insulin Glargine 65 Units Nightly SC -Discontinued (Dose adjustm) Insulin Glargine 70 Units Nightly SC Insulin Lispro INJECT 12 UNITS BREAKFAST, 25 UNITS LUNCH/ DINNER PLUS CORRECTIONS OF 1:30 > 150MG/DL ( MAX 100 UNITS A DAY) (100 UNIT/ML SOPN) -Discontinued (Dose adjustm) Insulin Lispro INJECT 18 UNITS BREAKFAST/LUNCH, 35 units DINNER PLUS CORRECTIONS OF 1:30 > 150MG/DL ( MAX 100 UNITS A DAY) (100 UNIT/ML SOPN) Semaglutide 1 mg Weekly SC Labs [facility] [place] HEMOGLOBIN A1C/HEMOGLOBIN.TOTAL:MFR:PT:BLD:QN: 9.4 Outpatient prescription Medication marked as long-term The ASCVD Risk score (Carlos SR, et al., 2019) failed to calculate for the following reasons: Cannot find a previous HDL lab Cannot find a previous total cholesterol lab REVIEW OF SYMPTOMS: Review of Systems Constitutional: Positive for fatigue. Negative for appetite change and unexpected weight change. Eyes: Negative for visual disturbance. Respiratory: Negative for cough, shortness of breath and wheezing. Cardiovascular: Negative for chest pain, palpitations and leg swelling. Neurological: Positive for numbness. Endocrine: Negative for polydipsia, polyphagia and polyuria. OBJECTIVE: 07/31/2024 10:32 AM 05/29/2024 2:51 PM 05/28/2024 7:38 AM Vitals BMI 37.02 kg/m2 36.88 kg/m2 36.88 kg/m2 Systolic 108 136 Diastolic 70 72 Heart Rate 78 104 Temp 97.9 F 97.1 F Resp 18 Height (in) 5' 10 5' 10 5' 10 Weight (lb) 258 257 257 Visit Report Report Report Report Physical Exam [...] polyneuropathy, with long-term current use of insulin ([facility]) During the appointment today all [...] should also avoid any sugary drinks. , Instructed on the importance of taking insulin before eating. If it has been more than 30-45 min since eating they should not give the meal dose but should just give a correction insulin dose. , Instructions given today include: Insulin instructions and Dietary education. He needs to get better with his diet in order to improve control of his diabetes. I also recommended getting into a regular exercise routine as well with the goal of at least 150 min moderate intensity exercise weekly. Will increase insulin to help as well. Relevant Medications insulin glargine (Lantus SoloStar) 100 UNIT/ML pen insulin lispro (HumaLOG) 100 UNIT/ML injection Other Relevant Orders POCT glycosylated hemoglobin (Hb A1C) docked device (Completed) Class 2 severe obesity due to excess calories with serious comorbidity and body mass index (BMI) of 37.0 to 37.9 in adult ([facility]) - Primary Type 2 diabetes mellitus with stage 3b chronic kidney disease, with long-term current use of insulin ([facility]) ([facility]) Type 2 diabetes mellitus with hyperglycemia, with long-term current use of insulin ([facility]) Follow up in about 3 months (around 10/28/2024) for Recheck. Patient's Medications New Prescriptions No medications on file Previous Medications AMOXICILLIN (AMOXIL) 875 MG TABLET TAKE 1 TABLET BY MOUTH TWICE DAILY UNTIL GONE ASPIRIN 81 MG CHEWABLE TABLET Chew 81 mg Daily CELECOXIB (CELEBREX) 200 MG CAPSULE TAKE 1 CAPSULE BY MOUTH TWICE DAILY CONTINUOUS GLUCOSE SENSOR (DEXCOM G7 SENSOR) MISC USE DIRECTED to check BLOOD SUGAR *change EVERY TEN days * [facility] UNIFINE PENTIPS 31G X 5 MM MISC USE DIRECTED FOUR TIMES DAILY FLUOROMETHOLONE (FML) 0.1 % OPHTHALMIC SUSPENSION instill 1 (ONE) DROP IN BOTH EYES FOUR TIMES DAILY FOR 7 DAYS then instill 1 (ONE) DROP IN BOTH EYES TWICE DAILY FOR 7 DAYS FLUOXETINE (PROZAC) 40 MG CAPSULE Take 1 capsule (40 mg) by mouth Daily GABAPENTIN (NEURONTIN) 300 MG CAPSULE Take 300 mg by mouth in the morning and 300 mg before bedtime. GLUCOSE BLOOD (OutsparkUCH ULTRA) TEST STRIP Fsbs bid LANCETS (ONETOUCH DELICA PLUS [id number]) [facility] [place] use to test BLOOD SUGAR THREE TIMES DAILY LANSOPRAZOLE (PREVACID) [address] CAPSULE lansoprazole 30 mg capsule,delayed release LISINOPRIL 10 MG TABLET Take 1 tablet (10 mg) by mouth in the morning and 1 tablet (10 mg) before bedtime. LOPERAMIDE (IMODIUM) 2 MG CAPSULE TAKE 1 [...] 100 MG/ML INJECTION Inject under the skin TIZANIDINE (ZANAFLEX) 4 MG TABLET Take 1 tablet (4 mg) by mouth 3 (three) times a day as needed for muscle spasms TRIAMCINOLONE (KENALOG) 0.1 % CREAM APPLY TO THE AFFECTED AREA(S) (PSORIASIS ON TRUNK AND ALL EXTREMITIES) DAILY NEEDED SUNDAY THROUGH SUNDAY DO NOT USE ON FACE) Modified Medications Modified Medication Previous Medication INSULIN GLARGINE (LANTUS SOLOSTAR) 100 UNIT/ML PEN insulin glargine (Lantus SoloStar) 100 UNIT/ML pen Inject 70 Units under the skin at bedtime Inject 65 Units under the skin at bedtime INSULIN LISPRO (HUMALOG) 100 UNIT/ML INJECTION insulin lispro (HumaLOG) 100 UNIT/ML injection INJECT 18 UNITS BREAKFAST/LUNCH, 35 units DINNER PLUS CORRECTIONS OF 1:30 > 150MG/DL ( MAX 100 UNITS A DAY) INJECT 12 UNITS BREAKFAST, 25 UNITS LUNCH/ DINNER PLUS CORRECTIONS OF 1:30 > 150MG/DL ( MAX 100 UNITS A DAY) Discontinued Medications GABAPENTIN (NEURONTIN) 100 MG CAPSULE Take by mouth I have reviewed and reconciled the history and medication list with the patient today. documented in this encounter [facility] 07-30-2024 Evaluation note Diagnosis Onset Date Resolution GERD (gastroesophageal reflux disease) acute July 30 2:05pm IBS (irritable bowel syndrome) acute July 30 2:05pm [facility] Work Phone: 1(226) 759-296202-05-2025 History of Present illness Narrative* TK Cantu - 07/23/2024 9:15 AM EST Images from the original note were not included. HISTORY OF PRESENT ILLNESS: POST OP PT Milad Seymour is an 68 y.o. @ male. No surgery found s/p surgery onNo surgery found (EST PT) S/P (L) SHOULDER SCOPE 04/25/24 (12WKS 5DAYS) - DOING WELL- DISCONTINUED PT DARNELL UZIEL ; STATES HE IS ABLE TO DO EXERCISES AT HOME AND HAS A $35 COPAY - GOOD ROM- MINIMAL OCCASIONAL DISCOMFORT- NO PAIN MEDS REVIEW OF SYSTEMS: General: Denies fever, fatigue or weight loss Lungs: Denies SOB Cardio: Denies chest pain GI: Denies indigestion or abdominal pain Neuro: Denies numbness or tingling, denies new onset paralysis Musculoskeletal: ( see note) PHYSICAL EXAM: Shoulder Musculoskeletal Exam Inspection Left Left shoulder inspection is normal. Ecchymosis: none Peripheral edema: none Atrophy: none Masses: none Prior incision: arthroscopic portals Incision: well-healed Palpation Left Left shoulder palpation is normal. Crepitus: no crepitus Increased warmth: none Tenderness: none Range of Motion Left Left shoulder range of motion is normal. Active ROM: normal and no pain. Passive ROM: normal and no pain. Strength Left External rotation: 4/5. Internal rotation: 4/5. Abduction: 4/5. Biceps: 5/5. Triceps: 5/5. Neurovascular Left Radial pulse: normal and 2+ Capillary refill: <3 sec Axillary nerve sensory distribution: normal Scapula Left Left shoulder scapula is normal. Position: normal Winging: none Special Tests Left Rotator Cuff Signs Neer's test: negative Shaw test: negative Biceps/sophie Signs Speed's test: negative AC Joint Signs Active horizontal adduction pain: negative General Constitutional: appears stated age Labored breathing: no Neurological: alert and oriented x3 Procedures No orders of the defined types were placed in this encounter. ASSESSMENT: ICD-10-CM 1. S/P arthroscopy of left shoulder Z98.890 S/p rotator cuff repair. Biceps tenodesis Assessment & Plan 1. Left shoulder status post rotator cuff repair. He is now at a stage where strengthening exercises can be initiated. He has full active and passiverange of motion and is very pleased with his progress. He prefers not to continue formal physical therapy due to co-pay and lifestyle considerations. He is recommended to do the strengthening programto mitigate further symptoms of impingement. He will avoid any heavy lifting or whipping motions. He is provided with home exercises for strengthening, including supine shoulder exercises and bands. He is familiar with these exercises due to multiple previous shoulder surgeries. He will call with any concerns or questions. Follow-up will be on an as-needed basis if he experiences any difficulties. PROCEDURE The patient underwent a rotator cuff repair procedure on the left shoulder. Questions answered in laymen terms at the bedside. The diagnosis, home exercise plan and any ongoing restrictions/ recommendations reviewed. If unable to be reached in office, I recommend evaluation at nearest Emergency Room if any symptoms worsened or new symptoms develop for requiring urgent evaluation. [facility] in [facility] [id number] History of Present illness Narrative* Alma Berkowitz, PT - 07/01/2024 9:00 AM EST Images from the original note were not [...] tendon on 04/25/24,. Pt has been compliant withuse of sling. Now to begin PT. Pt states not taking any pain medication or OTC meds for shoulder. Sleeping on couch which was difficult but now getting better. Just had abductor pillow removed. No complaints of pain. Precautions: Maynard Subjective: Pt states he was consistently icing [...] PROM in all planes and gentle left GHmobs to increase ROM and mobility Therapeutic Exercise: [...] to be instructed in home exercise program. Business Development Professional Goals: To be met in 10 weeks [...] Please sign below. Date: documented in this encounterSaint [facility] [id number] History of Present illness Narrative* TK Cantu - 06/25/2024 8:45 AM EST Images from the original note were not included. HISTORY OF PRESENT ILLNESS: POST OP PT Milad Seymour is an 68 y.o. @ male. (EST PT) S/P (L) SHOULDER SCOPE 04/25/24 (8WKS 5DAYS) DOING MUCH BETTER - CONTINUES PT [facility]; INCREASE ROM - HAS NOT STARTED STRENGTHENING CONTINUES PHYSICAL THERAPY (10 SESSIONS) @[facility] NOTES SOME DISCOMFORT ANTERIOR SHOULDER- PT ICES/IBUPROFEN- [...] elbow wrist and fingers in all anatomic planeswith 5 out of 5 strength on the [...] regarding additional pain management with his family doctor.Patient is diabetic and can not do oral [...] for requiring urgent evaluation. documented in this encounterSaint Louis [facility] [id number] History of Present illness Narrative* Alma Berkowitz, PT - 06/24/2024 9:00 AM EST Images from the original note were not [...] tendon on 04/25/24,. Pt has been compliant withuse of sling. Now to begin PT. Pt states not taking any pain medication or OTC meds for shoulder. Sleeping on couch which was difficult but now getting better. Just had abductor pillow removed. No complaints of pain. Precautions: Maynard Subjective: Pt states he has noticed a sharp pain occasionally when trying to raise arm overhead. Pain is short in duration. Will see Dr again tomorrow. Pain: 06/27 left shoulder Objective: [...] to be instructed in home exercise program. Business Development Professional Goals: To be met in 10 weeks [...] Please sign below. Date: documented in this encounterSaint Louis University HospitalHvzzdupuwn51-67-0924 History of Present illness Narrative* Justina Carrillo, PT - 06/20/2024 8:00 AM EST Images from the original note were not [...] tendon on 04/25/24,. Pt has been compliant withuse of sling. Now to begin PT. Pt states not taking any pain medication or OTC meds for shoulder. Sleeping on couch which was difficult but now getting better. Just had abductor pillow removed. No complaints of pain. Precautions: Maynard Subjective: No significant pain coming in today. [...] PROM in all planes and gentle left GHmobs to increase ROM and mobility Therapeutic Exercise: [...] to be instructed in home exercise program. Business Development Professional Goals: To be met in 10 weeks [...] Please sign below. Date: documented in this encounterSaint Louis University HospitalRicpcvhalt55-34-3151 History of Present illness Narrative* Alma Berkowitz, PT - 06/16/2024 10:00 AM EST Images from the original note were not [...] tendon on 04/25/24,. Pt has been compliant withuse of sling. Now to begin PT. Pt states not taking any pain medication or OTC meds for shoulder. Sleeping on couch which was difficult but now getting better. Just had abductor pillow removed. No complaints of pain. Precautions: Maynard Subjective: Pt states he was a little [...] PROM in all planes and gentle left GHmobs to increase ROM and mobility Therapeutic Exercise: [...] with mild compensation noted during exercises due toweakness. Will continue to progress Outcome Measure: Upper Extremity Functional Index (UEFI): 56/80 Rehab Diagnosis: left shoulder pain and weakness; limited mobility left shoulder Short Term Goal: To be met in 2 weeks Goal 1: Pt to be instructed in home exercise program. Business Development Professional Goals: To be met in 10 weeks [...] Please sign below. Date: documented in this encounterSaint Louis University HospitalEowaweunom97-87-1823 History of Present illness Narrative* Alma Berkowitz PT - 06/12/2024 9:00 AM EST Images from the original note were not [...] tendon on 04/25/24,. Pt has been compliant withuse of sling. Now to begin PT. Pt states not taking any pain medication or OTC meds for shoulder. Sleeping on couch which was difficult but now getting better. Just had abductor pillow removed. No complaints of pain. Precautions: Maynard Subjective: Pt states pain is minimal in left shoulder. Spoke with and is OK to begin AROM. Trying [...] PROM in all planes and gentle left GHmobs to increase ROM and mobility Therapeutic Exercise: [...] to be instructed in home exercise program. Business Development Professional Goals: To be met in 10 weeks [...] Please sign below. Date: documented in this [facility]12-21-2024 Telephone encounter Note* Telephone Encounter - TK Cantu - 06/07/2024 8:34 AM EST Spoke with pt. May DC sling.. Start AROM/ PROM,. No strengthening or resistance... keep therapy going pending follow up.. pt feels he is doing well and making progress [place] [id number] Miscellaneous Notes* Telephone Encounter - TK Cantu - 06/07/2024 8:34 AM EST Spoke with pt. May DC sling.. Start AROM/ PROM,. No strengthening or resistance... keep therapy going pending follow up.. pt feels he is doing well and making progress documented in this [facility]12-17-2024 Telephone encounter Note* Telephone Encounter - Dank Campo MD - 06/03/2024 9:58 AM EST Patient left message about prozac dose. Dose increased to 40 mg last week and script was sent to [facility]. It will take 2-3 weeks to notice an improvement in mood and continue at 40 mg. [place] [id number] Miscellaneous Notes* Telephone Encounter - Dank Campo MD - 06/03/2024 9:58 AM EST Patient left message about prozac dose. Dose increased to 40 mg last week and script was sent to [facility]. It will take 2-3 weeks to notice an improvement in mood and continue at 40 mg. documented in this [address]12-2024 History of Present illness Narrative* Dexter Leon Sukhwinder, DPM - 05/29/2024 2:45 PM EST Images from the original note were not included. Subjective Patient ID: Darrin Seymour is a 68 y.o. male who presents for Foot Pain (Darrin Seymour 68yo patient presents with Left foot lateral side foot pain. NKI, pain started 2 weeks ago. Pain level at a 2 at thistime. Patient has been receiving steroid injections in his back and Blood sugars have been elevatedper patient. BS [address] Campo [...] 10 days, Disp: 9 each, Rfl: 3 [facility] X 5 MM misc, USE [...] by mouth, Disp: , Rfl: glucose blood (TerraX MineralsTouch Ultra) test strip, Fsbs bid, Disp: 200 each, Rfl: 3 insulin glargine (Lantus SoloStar) 100 UNIT/ML pen, Inject 65 Units under the skin at bedtime, Disp: 60 mL, Rfl: 3 insulin lispro (HumaLOG) 100 UNIT/ML injection, INJECT 12 UNITS BREAKFAST, 25 UNITS LUNCH/ DINNER PLUS CORRECTIONS OF 1:30 > 150MG/DL ( MAX 100 UNITS A DAY), Disp: 90 mL, Rfl: 3 Lancets (OneTouch Delica Plus [id number]) [facility] [place], use to test BLOOD SUGAR THREE TIMES [...] GALLBLADDER SURGERY 03/2021 HEEL SPUR SURGERY Right [address] KNEE SURGERY x2 arthroscopy OTHER SURGICAL HISTORY 07/31/2017 RM and T-tube, Timmis OTHER SURGICAL HISTORY Right 07/2020 Right PCR ROTATOR CUFF REPAIR Bilateral [id number] Wendy Crowell ROTATOR CUFF REPAIR 04/2024 SHOULDER [...] over the lateral midfoot, with no appreciable swelling;with what appears to be fading ecchymosis. Well [...] understanding. Dexter Krishnamurthy DPM documented in this encounterSaint Louis University HospitalKugrmcshpt33-56-0860 Instructions* Patient Instructions* Dexter Krishnamurthy DPM - 05/29/2024 2:45 PM EST As noted documented in this encounterSaint Louis University HospitalTgxbvnwbon26-94-1244 History of Present illness Narrative* Valentine Simon, PT - 05/29/2024 9:00 AM EST Physical Therapy Treatment Visit Patient Name: Darrin Seymour Today's Date: 05/29/2024 Encounter Diagnoses Name Primary? Left shoulder pain, unspecified chronicity Yes S/P arthroscopy of left shoulder Visit number: 4 Timed Code Treatment Minutes: 30 minutes Total Treatment Time: 40 minutes Time In: 0900 Time Out: 939 History: Pt underwent surgery for left RCR and bicep tendon on 04/25/24,. Pt has been compliant withuse of sling. Now to begin PT. Pt states not taking any pain medication or OTC meds for shoulder. Sleeping on couch which was difficult but now getting better. Just had abductor pillow removed. No complaints of pain. Precautions: Maynard Subjective: Pt reports he has probably using [...] minutes) Strength, Endurance, Flexibility, ROM, HEP, Neural Mobilization,Power, and Core Stability as needed. Pt performed and instructed in home program this date; writteninstructions and pictures issued with good pt understanding. [...] to be instructed in home exercise program. Penitentiary Goals: To be met in 10 weeks [...] Please sign below. Date: documented in this encounterSaint Louis University HospitalAxenyxhwin45-47-6863 History of Present illness Narrative* Dank Campo MD - 05/28/2024 8:21 AM ESTAssociated Problem(s): Type 2 diabetes mellitus with stage 3b chronic kidney disease, with long-term current use of insulin (HCC) ([facility]) Renal function stable. Continue lisinopril and ozempic. * Dank Campo MD - 05/28/2024 8:19 AM ESTAssociated Problem(s): Type 2 diabetes mellitus with diabetic polyneuropathy, with long-term current use of insulin ([facility]) BS improving and follow up with endo. * Dank Campo MD - 05/28/2024 8:19 AM ESTAssociated Problem(s): Lumbar spondylosis Pain starting to worsen and follow with pain management. Continue celebrex. * Dank Campo MD - 05/28/2024 8:18 AM ESTAssociated Problem(s): JARAD (generalized anxiety disorder) ([facility]) Worsening symptoms and increase prozac. Warned will take 2-3 weeks to notice improvement in mood. Use valium PRN. * Dank Campo MD - 05/28/2024 8:18 AM ESTAssociated Problem(s): Benign essential hypertension ([facility]) BP controlled and monitor PRN. Discussed DASH diet. * Dank Campo MD - 05/28/2024 7:30 AM EST Subjective Patient ID: Darrin Seymour is a 68 y.o. male who presents for Dry Eye and Follow- up (6m/Would like med increase). Follow up HTN, [...] (PROzac) 40 MG capsule documented in this encounterDe[place] [id number] Telephone encounter Note* Telephone Encounter - Slime Sanches - 05/12/2024 1:40 PM EST $35.00 copay / prior-auth needed. [facility] HospitalYkbhvmbeag36-15-7293 Miscellaneous Notes* Telephone Encounter - Slime Sanches - 05/12/2024 1:40 PM EST $35.00 copay / prior-auth needed. documented in this encounterSaint Louis University HospitalJsayywdmjo99-12-5040 History of Present illness Narrative* TK Cantu - 05/09/2024 9:00 AM EST Images from the original note were not [...] for requiring urgent evaluation. documented in this [facility]11-22-2024 Instructions* Patient Instructions* TK Cantu - 05/09/2024 9:00 AM EST [...] call Therapy facility to schedule as soon aspossible documented in this [facility]11-12-2024 History of Present illness Narrative* Ashli Ross DO - 04/29/2024 11:31 AM ESTAssociated Problem(s): Type 2 diabetes mellitus with diabetic polyneuropathy, with long- term current use of insulin ([facility]) During the appointment today all pertinent labs, imaging, health maintenance, and glucose readings were reviewed. Encouraged to check blood glucose throughout the day with some fasting and some PP readings. They are to bring their glucose meter/cgm in to all appointments. All of the patients questions, treatment options, and current care plan and goals were discussed. Acopy of this along with pertinent instructions were given to the patient at the end of the appointment. The patient voices understanding of all of this and is to call in between appointments if they have any problems or questions. Milad Seymour blood sugars are worsening. , The patient is wearing their cgm on a daily basis andmaking decisions in regards to adjusting insulin daily [...] protein if he is going to snack. * Ashli Ross DO - 04/29/2024 10:45 AM EST Images from the original note were not [...] hypotension Osteoarthritis of knee Benign essential hypertension ([facility]) Primary osteoarthritis, right shoulder Prostate cancer ([facility]) Proteinuria Hypercholesteremia ([facility]) Renal failure 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, with long-term current use of insulin ([facility]) Long-term insulin use ([facility]) Class 2 severe obesity due to excess calories with serious comorbidity and body mass index (BMI) of35.0 to 35.9 in adult ([facility]) Lumbar spondylosis Bilateral leg edema Encounter for long-term (current) use of medications Obesity (BMI 30-39.9) FRANK (obstructive sleep apnea) Chronic fatigue Right hand pain Hypersomnia Fasciculations Memory impairment Bilateral carpal tunnel syndrome Foot drop, right Lumbar radiculopathy Cervical radiculopathy Family history of Parkinson's disease JARAD (generalized anxiety disorder) ([facility]) Type 2 diabetes mellitus with stage 3a chronic kidney disease, with long-term current use of insulin ([facility]) ([facility]) Social History Tobacco Use Smoking status: Former [...] 100 UNITS A DAY) (100 UNIT/ML SOPN) - Discontinued (Dose adjustm) Insulin Lispro INJECT 5-10 UNITS BREAKFAST, 30 UNITS LUNCH/ DINNER PLUS CORRECTIONS OF 1:30 > 150MG/DL ( MAX 100 UNITS A DAY) (100 UNIT/ML SOPN)- Discontinued (Dose adjustm) INJECT 5-10 UNITS BREAKFAST, 30 UNITS LUNCH/ DINNER PLUS CORRECTIONS OF 1:30 > 150MG/DL ( MAX 100 UNITS A DAY) (100 UNIT/ML SOPN) INJECT 5-10 UNITS BREAKFAST, 30 UNITS LUNCH/ DINNER PLUS CORRECTIONS OF 1:30 > 150MG/DL( MAX 100 UNITS A DAY) (100 UNIT/ML [...] polyneuropathy, with long-term current use of insulin ([facility]) During the appointment today all pertinent labs, imaging, health maintenance, and glucose readings were reviewed. Encouraged to check blood glucose throughout the day with some fasting and some PP readings. They are to bring their glucose meter/cgm in to all appointments. All of the patients questions, treatment options, and current care plan and goals were discussed. Acopy of this along with pertinent instructions were given to the patient at the end of the appointment. The patient voices understanding of all of this and is to call in between appointments if they have any problems or questions. Milad Seymour blood sugars are worsening. , The patient is wearing their cgm on a daily basis andmaking decisions in regards to adjusting insulin daily [...] A1C) docked device (Completed) Long-term insulin use ([facility]) Class 2 severe obesity due to excess calories with serious comorbidity and body mass index (BMI) of35.0 to 35.9 in adult ([facility]) - Primary Type 2 diabetes mellitus with stage 3a chronic kidney disease, with long-term current use of insulin ([facility]) ([facility] Follow up in about 3 months (around [...] the morning and 10 mg in the eveningand 10 mg before bedtime. [facility] UN[facility] PENTIPS 31G X 5 MM [facility] [place]ED FOUR TIMES DAILY FLUOROMETHOLONE (FML) 0.1 % OPHTHALMIC SUSPENSION instill 1 (ONE) DROP IN BOTH EYES FOUR TIMES DAILY FOR 7 DAYS then instill 1 (ONE) DROP IN BOTH EYES TWICE DAILY FOR 7 DAYS FLUOXETINE (PROZAC) 20 MG CAPSULE TAKE 1 CAPSULE BY MOUTH DAILY GABAPENTIN (NEURONTIN) 100 MG CAPSULE Take by mouth GLUCOSE BLOOD (Accord BiomaterialsTOUCH ULTRA) TEST STRIP Fsbs bid LANCETS (ONETOUCH DELICA PLUS [id number]) [facility] [place] test BLOOD [...] Inject 1 mg under the skin 1 (one)time per week SIMVASTATIN (ZOCOR) 40 MG TABLET [...] with the patient today. documented in this [facility]11-07-2024 Telephone encounter Note* Telephone Encounter - Fredy Boswell NP - 04/24/2024 2:50 PM EST Post op pain rx. PDMP reviewed [facility] HospitalXokegbxwoo63-58-1700 Miscellaneous Notes* Telephone Encounter - Fredy Boswell NP - 04/24/2024 2:50 PM EST Post op pain rx. PDMP reviewed documented in this [facility]11-06-2024 Telephone encounter Note* Telephone Encounter - Dank Campo MD - 04/23/2024 12:24 PM EST BP very low and patient having symptoms. Decrease lisinopril to once a day and continue to monitor. [facility] HospitalGcvgvfaknk99-21-9717 Miscellaneous Notes* Telephone Encounter - Dank Campo MD - 04/23/2024 12:24 PM EST BP very low and patient having symptoms. Decrease lisinopril to once a day and continue to monitor. documented in this encounterSaint Louis University HospitalLfrvjhmomx04-21-4475 History of Present illness Narrative* TK Cantu - 04/08/2024 8:15 AM EDT Images from the original note were not included. GENERAL HISTORY AND PHYSICAL: NAME: Milad Seymour : 1955 HISTORY OF PRESENT ILLNESS: Milad Seymour is an 68 y.o. @ male. 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 Diabetes mellitus (CMS/HCC) ETD (Eustachian tube dysfunction), right Headache Hyperlipemia (CMS/HCC) Hyperlipidemia (CMS/HCC) Hypertension (CMS/HCC) Iron Infusions on going per [facility] , Low back pain Migraine (CMS/HCC) Otitis externa Prostate cancer (CMS/HCC) 2018 radiation PVC (premature ventricular contraction) Right shoulder pain Rotator cuff tear, right 2020 Sleep apnea PAST SURGICAL HISTORY: Past Surgical History: Procedure Laterality Date APPENDECTOMY 1971 CHOLECYSTECTOMY COLONOSCOPY COLONOSCOPY 2016 EGD GALLBLADDER SURGERY 03/2021 HEEL SPUR SURGERY Right [address] KNEE SURGERY x2 arthroscopy OTHER SURGICAL HISTORY 07/31/2017 RM and T-tube, Timmis OTHER SURGICAL HISTORY Right 07/2020 Right PCR ROTATOR CUFF REPAIR Bilateral [id number] Wendy Crowell ROTATOR CUFF REPAIR SHOULDER ARTHROSCOPY [...] 10 mg, Oral, 3 times daily Drug [facility] Unifine Pentips 31G X 5 MM misc USE DIRECTED FOUR TIMES DAILY fluorometholone (FML) 0.1 % ophthalmic suspension instill 1 (ONE) DROP IN BOTH EYES FOUR TIMES DAILY FOR 7 DAYS then instill 1 (ONE) DROP IN BOTH EYES TWICE DAILY FOR 7 DAYS FLUoxetine (PROZAC) 20 mg, Oral, Daily gabapentin (Neurontin) 100 MG capsule Oral glucose blood ([employer]ail R[employer]uch Ultra) test strip Fsbs bid insulin lispro (HumaLOG) 100 UNIT/ML injection INJECT 5-10 UNITS BREAKFAST, 30 UNITS LUNCH/ DINNER PLUS CORRECTIONS OF 1:30 > 150MG/DL ( MAX 100 UNITS A DAY) Lancets (TerraX MineralsTouch Delica Plus [id number]) misc use to test BLOOD SUGAR THREE [...] surgery received. All questions answered and proposed surgeryscheduled. (L) SHOULDER SCOPE 04/25 @FOREIGN SX INSTRUCTIONS GIVEN TODAY 04/08 @8:15AM - [place] DR. CAMPO CLEARANCE ; OBTAINED ULTRASLING GIVEN AT PRIOR APPT [facility] NOTIFIED PA APPROVED ([id number]) Follow up for 05/09 @9am w/tish in [place]. documented in this encounterSaint Louis University HospitalAnzpmcihrq85-39-3171 Telephone encounter Note* Telephone Encounter - Jr. Johanne Hdez DO - 03/25/2024 8:05 AM EDT Case cancelled as he took aspirin and celebrex [facility] Work Phone: [phone]) 469-295210-08-2024 Miscellaneous Notes* Telephone Encounter - Jr. Johanne Hdez DO - 03/25/2024 8:05 AM EDT Case cancelled as he took aspirin and celebrex * Telephone Encounter - Fredy Boswell NP - 03/24/2024 6:38 PM EDT Post op pain rx. PDMP reviewed documented in this encounterSaint Louis University HospitalBdjxdjboup21-42-0874 Telephone encounter Note* Telephone Encounter - Fredy Boswell NP - 03/24/2024 6:38 PM EDT Post op pain rx. PDMP reviewed [facility] HospitalCrbwobpton39-22-2496 Telephone encounter Note* Telephone Encounter - TK Cantu - 03/18/2024 2:20 PM EDT Reviewed Pre-op labs.. Abdnormal renal function and potassium level. Labs in chart... Dr. Campo..are you willing to address? [facility] Work Phone: [phone]) 358-631410-01-2024 Miscellaneous Notes* Telephone Encounter - TK Cantu - 03/18/2024 2:20 PM EDT Reviewed Pre-op labs.. Abdnormal renal function and potassium level. Labs in chart... Dr. Naderer..are you willing to address? documented in this encounterSaint Louis University HospitalDnyszfaqeh57-86-6886 History of Present illness Narrative* TK Cantu - 03/18/2024 8:30 AM EDT Images from the original note were not included. GENERAL HISTORY AND PHYSICAL: NAME: Milad Seymour : 1955 HISTORY OF PRESENT ILLNESS: Milad Seymour is an 68 y.o. @ male. 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 Diabetes mellitus (CMS/HCC) ETD (Eustachian tube dysfunction), right Headache Hyperlipemia (CMS/HCC) Hyperlipidemia (CMS/HCC) Hypertension (CMS/HCC) Iron Infusions on going per [facility] , Low back pain Migraine (CMS/HCC) Otitis externa Prostate cancer (CMS/HCC) 2018 radiation PVC (premature ventricular contraction) Right shoulder pain Rotator cuff tear, right 2020 Sleep apnea PAST SURGICAL HISTORY: Past Surgical History: Procedure Laterality Date APPENDECTOMY 1970 CHOLECYSTECTOMY COLONOSCOPY COLONOSCOPY 2016 EGD GALLBLADDER SURGERY 03/2021 HEEL SPUR SURGERY Right [address] KNEE SURGERY x2 arthroscopy OTHER SURGICAL HISTORY 07/31/2017 RM and T-tube, Timmis OTHER SURGICAL HISTORY Right 07/2020 Right PCR ROTATOR CUFF REPAIR Bilateral [id number] Wendy Crowell ROTATOR CUFF REPAIR SHOULDER ARTHROSCOPY [...] mg, Oral, 3 times daily PRN Drug [facility] Pentips 31G X 5 MM misc USE DIRECTED FOUR TIMES DAILY fluorometholone (FML) 0.1 % ophthalmic suspension instill 1 (ONE) DROP IN BOTH EYES FOUR TIMES DAILY FOR 7 DAYS then instill 1 (ONE) DROP IN BOTH EYES TWICE DAILY FOR 7 DAYS FLUoxetine (PROZAC) 20 mg, Oral, Daily glucose blood (Retail Rocketuch Ultra) test strip Fsbs bid insulin lispro (HumaLOG) 100 UNIT/ML injection INJECT 5-10 UNITS BREAKFAST, 30 UNITS LUNCH/ DINNER PLUS CORRECTIONS OF 1:30 > 150MG/DL ( MAX 100 UNITS A DAY) Lancets (Retail [employer] Delica Plus [id number]) misc use to test BLOOD SUGAR THREE [...] surgery received. All questions answered and proposed surgeryscheduled. (L) SHOULDER SCOPE 03/25 @FOREIGN SX INSTRUCTIONS GIVEN TODAY 03/18 @8:30AM - [place] ULTRASLING GIVEN TODAY [facility] NOTIFIED PA APPROVED ([id number]) Patient presents today for fitting of left [...] Follow up for 04/08 @9am w/tish in [place]. documented in this encounterSaint Louis University HospitalZtdyhhlxqi02-70-1389 Telephone encounter Note* Telephone Encounter - Ashli Ross DO - 03/17/2024 12:22 PM EDT Please notify pt bg will usually go up for 3-4 days after steroid injections (sometimes 7-10 days).Looks like they are coming down a little. I would recommend increasing his insulin for lunch and dinner to 30 units. Is he still taking ozempic 1 mg weekly? We gave him a sample at his last visit andhe was waiting on patient assistance. [facility] HospitalVwtwiwitpl20-05-5498 Miscellaneous Notes* Telephone Encounter - Ashli Ross, - 03/17/2024 12:22 PM EDT Please notify pt bg will usually go up for 3-4 days after steroid injections (sometimes 7-10 days).Looks like they are coming down a little. I would recommend increasing his insulin for lunch and dinner to 30 units. Is he still taking ozempic 1 mg weekly? We gave him a sample at his last visit andhe was waiting on patient assistance. documented in this encounterSaint Louis University HospitalIkqkdowfko56-26-1055 History of Present illness Narrative* Jr. Johanne Hdez, - 03/03/2024 2:30 PM EDT Images from the original note were not included. HISTORY OF PRESENT ILLNESS: EST PT Milad Seymour is an 68 y.o. @ male. EST PT RECHECK LT SHOULDER INJURY 04/21/23 (~10MO) RECENT A1C 6.8 ON 01/31/[address] ROSS (IN 01/31/24 ENCOUNTER) XRAY LT SHOULDER TODAY EPIC 03/03/24 XRAY CHANGE 04/30/23 CT ARTHROGRAM [place] [facility] [place]; UNABLE TO DUE TO CLAUSTROPHOBIA DEPO INJECTION 04/30/23 NO MDP/PREDNISONE HX LT RCR YEARS AGO, DR CROWELL PAIN GENERALLY WITH MOVEMENT/LIFTING- C/O ACHINESS- +ALEVE- PAINFUL ROM- SOME WEAKNESS- PT TRIES TOLIMIT ACTIVITY RT HANDED. MELISSA: FELT SOMETHING POP [...] mg, Oral, 3 times daily PRN Drug [place] Unifine Pentips 31G X 5 MM misc USE DIRECTED FOUR TIMES DAILY fluorometholone (FML) 0.1 % ophthalmic suspension instill 1 (ONE) DROP IN BOTH EYES FOUR TIMES DAILY FOR 7 DAYS then instill 1 (ONE) DROP IN BOTH EYES TWICE DAILY FOR 7 DAYS FLUoxetine (PROZAC) 20 mg, Oral, Daily glucose blood ([employer]ail R[employer]uch Ultra) test strip Fsbs bid insulin lispro (HumaLOG) 100 UNIT/ML injection INJECT 5-10 UNITS BREAKFAST, 25 UNITS LUNCH/ DINNER PLUS CORRECTIONS OF 1:30 > 150MG/DL ( MAX 100 UNITS A DAY) Lancets (TerraX MineralsTouch Delica Plus [id number]) [facility] [place] test BLOOD SUGAR THREE TIMES [...] I am acting as scribe for Dr. Hdez/jamie, PLAN: WE have discussed (L) shoulder xrays and reviewed prior (L) shoulder arthrogram results : rotator cuff tear. After examination of his left shoulder today we have discussed both surgical and nonsurgical intervention, with the risks / benefits of both. Patient is requesting a (L) shoulder scopeas the pain is affecting his ADL's - limited ROM secondary to pain. He is understanding if a repairis made he could be in a sling [...] intervention. Johanne Hdez D.O. documented in this encounterSaint Louis University [id number] Miscellaneous Notes* Telephone Encounter - Olive Juárez - 02/28/2024 8:30 AM EDT PAP mask and supplies order with supportive documentation faxed to [facility]. documented in this encounterSelect [facility]24 Telephone encounter Note* Telephone Encounter - Olive Juárez - 02/28/2024 8:30 AM EDT PAP mask and supplies order with supportive documentation faxed to [facility]. [facility] History of Present illness Narrative* Hanna Butcher MD - 02/25/2024 10:30 AM EDT Images from the original note were not included. [address] [place] [id number] Patient: Milad Seymour Date of : 1955 Encounter Date: 02/25/2024 History of Present Illness: The patient is a 68 y.o. male, is here for follow up of obstructive sleep apnea. Recently started on Prozac with good results for anxiety. Aside from this medication he has not started on any other new medication. No significant change in his weight. However since his titration his residual AHI has significantly improved. No pressure changes have been made. He has not changed his mask style Mask interface: FFM [] Epistaxis [] Aerophagia [] Pressure intolerance [] Skin irritation [] Mask leak BT- 10pm (quiet and dark, TV on initially, no pets) PIA- < 30 minutes WASO- none typically WT- 6a Naps- 2-3x (when watching TV) Cleaning machine / cleaning supplies = soap and water, once every 3 weeks Nocturnal behaviors / RLS = denies Drowsy driving = denies lately Physical Exam: BP 108/60 Pulse 77 Ht 175.3 cm (5' 9 ) Wt 113.7 kg (250 lb 9.6 oz) SpO2 98% BMI 37.01 kg/m General Appearance - Awake, alert, oriented, in no acute distress 03/21/2019 7:35 PM 12/22/2020 2:00 PM 08/15/2023 1:00 PM 12/14/2023 12:21 AM 02/25/2024 10:00 AM Holland Sleepiness Scale Sitting and Reading 3 3 2 2 1 Watching TV 3 3 2 2 1 Sitting inactive in a public place (theater, meeting) 0 3 1 2 1 As a passenger in a car for an hour without a break 1 3 0 1 0 Lying down in the afternoon to rest 3 3 2 2 1 Sitting and talking to someone 0 0 0 1 0 Sitting quietly after lunch (without alcohol) 2 3 1 1 0 In a car, while stopped for a few minutes in traffic 2 3 0 0 0 Total 14 21 8 11 4 Assessment: 1. Obstructive sleep apnea (AHI 95.2, minimum saturation 71%, PSG 2014, weight 215 lb) currently onauto bilevel PAP 25/10 pressure support 5 cm of water with excellent compliance but suboptimal benefit due to elevated AHI on data download 2. Sepsis secondary to Legionella pneumonia, December 2018 3. Essential hypertension 4. Prior extensive nicotine use history, greater than 100 pack year history, quit 2021 Plan: 1. Continue with current pressure setting 2. Reviewed data download, continue with current pressure settings. We discussed that no changes have been made the only significant change is the improvement in his leak. This may be the reason why his residual AHI is significantly improved. We also discussed that potentially improving his sleep quality with management of his anxiety may decrease the central component of his data download. 3. LDCT for lung cancer screening. Patient has severe claustrophobia and has not been able to tolerate MRI without anesthesia previously. He believes with his new anxiety medication he might be able to tolerate a CT scan. 4. Follow up 4 months Hanna Butcher MD Pulmonary and Sleep Medicine [facility] Past Medical, Family, and Social History Update: The following portions of the patient's history were reviewed and updated as appropriate: allergies, current medications, past family history, past medical history, past social history, past surgicalhistory and problem list. Past Medical History: Diagnosis Date Anemia Unknown Arthritis Benign prostatic hyperplasia Cancer ([facility]) PROSTATE COPD (chronic obstructive pulmonary disease) ([facility]) Unknown Diabetes mellitus type 2, controlled ([facility]) GERD (gastroesophageal reflux disease) History of placement of ear tubes right ear Hyperlipidemia Hypertension Jaundice 03/30/21 FRANK (obstructive sleep apnea) cpap Visual impairment glasses Past Surgical History: Procedure Laterality Date APPENDECTOMY CHOLECYSTECTOMY 04/06/21 COLONOSCOPY 2019 FOOT SURGERY heel spur right KNEE SURGERY bilateral scope LAPAROSCOPIC EPIGASTRIC HERNIA REPAIR REPAIR ROTATOR CUFF SHOULDER Right 07/19/2020 Performed by Karsten Crowell DO at [facility] REPAIR ROTATOR CUFF SHOULDER Right 12/10/2017 Performed by Karsten Crowell DO at [facility] SHOULDER SURGERY bilateral TONSILLECTOMY 06/1970 TYMPANOSTOMY TUBE PLACEMENT Family History Problem Relation Age of Onset Stroke Mother Hypertension Mother Diabetes Mother Heart disease Mother Alzheimer's disease Father Parkinsonism Father Hyperlipidemia Paternal Grandfather Current Outpatient Medications Medication Sig Dispense Refill baclofen (LIORESAL) 20 mg tablet Take 1 tablet (20 mg total) by mouth 3 (three) times a day as needed for muscle spasms. celecoxib (CeleBREX) 200 mg capsule Take 1 capsule (200 mg total) by mouth in the morning and 1 capsule (200 mg total) before bedtime. FLUoxetine (PROzac) 20 mg capsule Take 1 capsule (20 mg total) by mouth in the morning. insulin lispro (HumaLOG) 100 unit/mL insulin pen Inject under the skin. lansoprazole (PREVACID) 30 mg capsule Take 1 capsule (30 mg total) by mouth in the morning. LANTUS SOLOSTAR U-100 INSULIN 100 unit/mL (3 mL) insulin pen Inject 60 Units under the skin. lisinopriL (PRINIVIL,ZESTRIL) 5 mg tablet Take 1 tablet (5 mg total) by mouth in the morning and 1 tablet (5 mg total) before bedtime. metoprolol succinate XL (TOPROL-XL) 50 mg 24 hr tablet Take 1 tablet (50 mg total) by mouth in the morning. simvastatin (ZOCOR) 40 mg tablet Take 1 tablet (40 mg total) by mouth in the morning. fluticasone propionate (FLONASE) 50 mcg/actuation nasal spray Administer 2 sprays into each nostrildaily. 15.8 mL 12 zolpidem (AMBIEN) 5 mg tablet Take 1 tablet (5 mg total) by mouth nightly as needed for sleep. 1 tablet 0 No current facility-administered medications for this visit. (All medications reviewed and updated by provider since last office visit or hospitalization) Allergies: Patient has no known allergies. Tobacco History: Social History Tobacco Use Smoking Status Former Current packs/day: 0.00 Average packs/day: 3.0 packs/day for 47.2 years (141.7 ttl pk-yrs) Types: Cigarettes Start date: 1974 Quit date: 09/2021 Years since quittin.4 Smokeless Tobacco Never (If patient a smoker, smoking cessation counseling offered) Social History: Social History Substance and Sexual Activity Alcohol Use No documented in this encounterSelect Medical Specialty Hospital [facility] [place]09-09-2024 Instructions* Patient Instructions* Hanna Butcher MD - 02/25/2024 10:30 AM EDT 1. Continue with current pressure setting 2. Reviewed data download 3. LDCT for lung cancer screening 4. Follow up 4 months documented in this encounterSelect Medical Specialty [facility]08-19-2024 Telephone encounter Note* Telephone Encounter - Walt Newton - 02/04/2024 4:27 PM EDT Like self pay shoes [facility] [id number] Miscellaneous Notes* Telephone Encounter - Walt Newton - 02/04/2024 4:27 PM EDT Like self pay shoes documented in this encounterSaint Louis University [id number] Hospital Discharge instructions Patient Education 02/04/2024 12:42:37 Prostate Cancer Screening Prostate Cancer Screening Prostate cancer screening is testing that is done to check for the presence of prostate cancer in men. The prostate gland is a walnut-sized gland that is located below the bladder and in front of therectum in males. The function of the prostate is to add fluid to semen during ejaculation. Prostatecancer is one of the most common types of cancer in men. Who should have prostate cancer screening? Screening recommendations vary based on age and other risk factors, as well as between the professional organizations who make the recommendations. In general, screening is recommended if: You are age 50 to 70 and have an average risk for prostate cancer. You should talk with your healthcare provider about your need for screening and [...] diagnosed with prostate cancer. The risk is higherif your family member's cancer occurred at an early age or if you have multiple family members withprostate cancer at an early age. ?Being a [...] is a blood test called the prostate-specific antigen(PSA) test. PSA is a protein that is [...] treatment? Where to find more information The [place] [employer]: www.cancer.org [place] [employer]: www.auanet.org Contact a health care [...] the recommended screening test for prostate cancer, butit has associated risks. Discuss the risks and [...] provider. Document Revised: 11/28/2021 Document Reviewed: 11/28/2021 [employer] Patient Education 2022 [employer]. Follow Up Care 02/12/2023 10:16:19 With:NICOLA RAYMUNDO, Peterson Owens, URL Address: [facility] [address] [place] [address]- [phone] When: Unknown [facility] 08-19-2024 NotePatient Education Oncology Prostate Cancer Screening Prostate cancer screening is testing that is done to check for the presence of prostate cancer in men. The prostate gland is a walnut-sized gland that is located below the bladder and in front of therectum in males. The function of the prostate is to add fluid to semen during ejaculation. Prostatecancer is one of the most common types [...] , screening in this age group is generallyreserved for men who have a 10- to [...] is a blood test called the prostate-specific antigen(PSA) test. PSA is a protein that is [...] cancer, and most men with prostate cancer diefrom a different cause. What are the risks [...] Where to find more information ? The [place] [employer]: www.cancer.org ? [place] [employer] Association: www.auanet.org Contact a health care [...] front of the rectum. (more content not included)...[facility]07-18-2024 Miscellaneous Notes* Telephone Encounter - Oskar Contreras MD - 01/03/2024 12:57 PM EDT Patient seen by SK. Has follow up with Dr. Butcher on 02/25/2024. Probably should wait for that visit before deciding on how best to proceed with care. Titration study on 12/13/2023 (Eqccey=961.0 lbs; BMI=36.9 kg/m2) DIAGNOSIS: Central Sleep Apnea - ICD Code G47.31 Obstructive Sleep Apnea - ICD Code G47.33 COMMENTS: This PAP titration with TCO2 monitoring tested Auto-BPAP settings of EPAP min 15 cm of water, IPAP max 25 cm of water, and pressure supports of 4 and 5 cm of water. Neither of these settings were effective in treating obstructive events as frequent central events were observed on each setting. Obstructive events were generally very well treated, and none were observed during supine stage-R, achieved EPAPs typically ranged from 15 to 18 cm of water. Due to observed central sleep apnea the patient was transitioned to BPAP - ASV and settings of EPAP15, PS min 3-4 cm of water and PS max 10 cm of water were tested. Central events generally resolved, however obstructive events re-emerged on BPAP - ASV. Sleep related hypoventilation was not observed. Baseline TCO2 values during quiet wakefulness ranged from 41-45 mmHg. During sleep, TCO2 values ranged from 35-38 mmHg. Note that study was limited by poor sleep efficiency, patient demonstrated what appeared to be terminal insomnia. Clinical correlation is advised. TREATMENT CONSIDERATIONS: Based on the results of this study, further investigation into why this patient was placed on BPAP is advised. As obstructive events typically resolved on EPAPs of higher than 15, and auto-titrating CPAP device set to pressures of 15 to 20 cm of water may be considered. If the patient was placed onBPAP due to CPAP intolerance, then a repeat titration with BPAP ST is recommended, as obstructive events were noted on the highest available EPAP on ASV. If central events persist then an oxygen titration may also be considered. documented in this encounterSelect Medical Specialty [facility]07-18-2024 Telephone encounter Note* Telephone Encounter - Oskar Contreras MD - 01/03/2024 12:57 PM EDT Patient seen by SK. Has follow up with Dr. Butcher on 02/25/2024. Probably should wait for that visit before deciding on how best to proceed with care. Titration study on 12/13/2023 (Thudak=579.0 lbs; BMI=36.9 kg/m2) DIAGNOSIS: Central Sleep Apnea - ICD Code G47.31 Obstructive Sleep Apnea - ICD Code G47.33 COMMENTS: This PAP titration with TCO2 monitoring tested Auto-BPAP settings of EPAP min 15 cm of water, IPAP max 25 cm of water, and pressure supports of 4 and 5 cm of water. Neither of these settings were effective in treating obstructive events as frequent central events were observed on each setting. Obstructive events were generally very well treated, and none were observed during supine stage-R, achieved EPAPs typically ranged from 15 to 18 cm of water. Due to observed central sleep apnea the patient was transitioned to BPAP - ASV and settings of EPAP15, PS min 3-4 cm of water and PS max 10 cm of water were tested. Central events generally resolved, however obstructive events re-emerged on BPAP - ASV. Sleep related hypoventilation was not observed. Baseline TCO2 values during quiet wakefulness ranged from 41-45 mmHg. During sleep, TCO2 values ranged from 35-38 mmHg. Note that study was limited by poor sleep efficiency, patient demonstrated what appeared to be terminal insomnia. Clinical correlation is advised. TREATMENT CONSIDERATIONS: Based on the results of this study, further investigation into why this patient was placed on BPAP is advised. As obstructive events typically resolved on EPAPs of higher than 15, and auto-titrating CPAP device set to pressures of 15 to 20 cm of water may be considered. If the patient was placed onBPAP due to CPAP intolerance, then a repeat titration with BPAP ST is recommended, as obstructive events were noted on the highest available EPAP on ASV. If central events persist then an oxygen titration may also be considered. [employer] Work Phone: [phone] Miscellaneous Notes* Telephone Encounter - Aliza Escalera - 12/06/2023 1:55 PM EDT Pt notified per SK that sleep aid has been called into [facility] in [place] for him to shrimp picker and take with him the night of his upcoming sleep study. Pt voice understanding and was very appreciative. documented in this encounterVermont Psychiatric Care HospitalJackpocket06-20-2024 Telephone encounter Note* Telephone Encounter - Aliza Escalera - 12/06/2023 1:55 PM EDT Pt notified per SK that sleep aid has been called into [facility] in [place] for him to shrimp picker and take with him the night of his upcoming sleep study. Pt voice understanding and was very appreciative. [facility] [employer] [id number] History of Present illness Narrative* SONNY Denis - 12/06/2023 12:43 PM EDT Discussed Ambien [address] Marmolejo for night of sleep study. Ordered. SONNY Denis 12/06/23 1245 documented in this encounterSelect Medical Specialty Hospital [facility]06-19-2024 Miscellaneous Notes* Telephone Encounter - Aliza Escalera - 12/05/2023 9:58 AM EDT Pt came into office, requesting help to reach the sleep lab to get his sleep study rescheduled. States he had to leave the date he was originally schedule due to the lab at [place] being too hot. Says having hard time reaching sleep lab to r/s, so told him would send them a message to call him. Pt says willing to go to [place] or [place]. Chat sent to sleep lab Hub to contact pt at [phone]. documented in this encounterOur Lady of Mercy Hospital - AndersonSynthesys Research [facility] [id number] Telephone encounter Note* Telephone Encounter - Aliza Escalera - 12/05/2023 9:58 AM EDT Pt came into office, requesting help to reach the sleep lab to get his sleep study rescheduled. States he had to leave the date he was originally schedule due to the lab at [place] being too hot. Says having hard time reaching sleep lab to r/s, so told him would send them a message to call him. Pt says willing to go to [place] or [place]. Chat sent to sleep lab Hub to contact pt at [phone]. [facility] [employer] [id number] Miscellaneous Notes* Telephone Encounter - Aliza Escalera - 08/27/2023 10:11 AM EDT ----- Message from SONNY Denis sent at 08/24/2023 10:25 AM EST ----- EF >45% ok for ASV * Telephone Encounter - Aliza Escalera - 08/27/2023 10:11 AM EDT Noted below in sleep lab encounter and on appt desk for techs for titration appt documented in this encounterTrumbull Memorial Hospital [facility] [employer] [facility] [id number] Telephone encounter Note* Telephone Encounter - Aliza Escalera - 08/27/2023 10:11 AM EDT ----- Message from SONNY Denis sent at 08/24/2023 10:25 AM EST ----- EF >45% ok for ASV [facility] HospitalCapeco [id number] Telephone encounter Note* Telephone Encounter - Aliza Escalera - 08/27/2023 10:11 AM EDT Noted below in sleep lab encounter and on appt desk for techs for titration appt [facility]Ca[facility] [id number] Miscellaneous Notes* Telephone Encounter - Zoraida Rosario - 08/17/2023 9:53 AM EST 08/15 received CPAP order 08/16 Scheduled CPAP at [facility] 6 Confirmation mailed and emailed [employer] CPAP order and 08/15 Loree notes in epic With TCO2 monitoring. Please obtain baseline in supine position. Starting pressure IPAP25 EPAP10 PS5 notes CSA on last download plans for Echo prior to titration documented in this encounterVermont Psychiatric Care HospitalJackpocket03-01-2024 Telephone encounter Note* Telephone Encounter - Zoraida Abraham - 08/17/2023 9:53 AM EST 08/15 received CPAP order 08/16 Scheduled CPAP at [facility] 11/18 Confirmation mailed and emailed [employer] CPAP order and 08/15 Loree notes in epic With TCO2 monitoring. Please obtain baseline in supine position. Starting pressure IPAP25 EPAP10 PS5 notes CSA on last download plans for Echo prior to titration [facility] HospitalSocial Studios02-28-2024 History of Present illness Narrative* Gregoria Ralph, MASTER [employer]LA[employer] CONTENT DIRECTOR - 08/15/2023 1:15 PM EST Images from the original note were not [...] any issues with mask fit or PAP machine.Reports not always putting on mask when going [...] humidifier. Cleaning supplies with soap and water. Holland Sleepiness Scale: Sitting and Reading: (!) Moderate [...] Anemia Unknown Arthritis Benign prostatic hyperplasia Cancer ([facility]) PROSTATE COPD (chronic obstructive pulmonary disease) ([facility]) Unknown Diabetes mellitus type 2, controlled ([facility]) GERD (gastroesophageal reflux [...] mg total) by mouth in the morning., Disp:, Rfl: LANTUS SOLOSTAR U-100 INSULIN 100 unit/mL (3 mL) insulin pen, Inject 60 Units under the skin., Disp: , Rfl: lisinopriL (PRINIVIL,ZESTRIL) 5 mg tablet, Take 1 tablet (5 mg total) by mouth in the morning and 1tablet (5 mg total) before bedtime., Disp: , Rfl: metoprolol succinate XL (TOPROL-XL) 50 mg 24 hr tablet, Take 1 tablet (50 mg total) by mouth in themorning., Disp: , Rfl: simvastatin (ZOCOR) 40 mg [...] are patent. Mild distention of the esophagus containingsome debris. Visualized structures in the lower neck are unremarkable. Visualized chest wall structures are unremarkable. Hepatic steatosis. No pleural or pericardial effusions. The thoracic aorta isunremarkable. The central pulmonary arteries are unremarkable. Coronary [...] Standing Expiration Date: 08/15/2024 Order Specific Question: [facility] required diagnosis: Answer: Personal history of [...] in supine position. Starting pressure IPAP25 EPAP10 PS5 notes CSA on last download plans for Echo prior to titration Order Specific Question: Follow Up Answer: [facility] to read and follow patient. [...] basis. New mask and supplies as needed. Patientreports he was not seeing any other facility since he was last in our office. His pressure does notmatch up with his previous pressure on this [...] not to drive if sleepy, and to crop puller if sleepiness occurs while driving. Above [...] that have escaped final proofreading. Gregoria Gibbs [facility] Office: [phone] 2:57 PM on 08/15/2023 CC: MD Gregoria GONZALEZ APRN-CNP 08/16/23 1438 documented in this encounterTrumbull Memorial Hospital [facility] [employer] [id number] Instructions* Patient Instructions* SONNY Denis - 08/15/2023 1:15 PM EST If you re looking for general health and wellness resources, please visit [email or web address]. documented in this encounterProDunlap Memorial Hospitalca Health [id number] Miscellaneous Notes* Telephone Encounter - Aliza Escalera - 08/02/2023 5:34 PM EST Received sleep referral from Valeria Mckeon NP. Pt is already an established pt and last saw SK in 2020- was recommended to follow up with KW. However he was a no show for his last 2 appt with our office. Chat to Tahmina to advise if still to schedule appt. documented in this encounterSelect Medical Specialty [facility]02-15-2024 Telephone encounter Note* Telephone Encounter - Aliza Escalera - 08/02/2023 5:34 PM EST Received sleep referral from Valeria Mckeon NP. Pt is already an established pt and last saw SK in 2020- was recommended to follow up with KW. However he was a no show for his last 2 appt with our office. Chat to Tahmina to advise if still to schedule appt. [facility] History of Present illness Narrative* Ashli Ross, - 07/30/2023 12:53 PM ESTAssociated Problem(s): Type 2 diabetes mellitus with diabetic polyneuropathy, with long-term current use of insulin ([facility]) During the appointment today all pertinent labs, imaging, health maintenance, and glucose readings were reviewed. Encouraged to check blood glucose throughout the day with some fasting and some PP readings. They are to bring their glucose meter/cgm in to all appointments. All of the patients questions, treatment options, and current care plan and goals were discussed. Acopy of this along with pertinent instructions were [...] needs to decrease portion sizes with food. * Ashli Ross DO - 07/30/2023 11:15 AM EST Images from the original note were not [...] Breakfast Lunch Dinner Snacks Drinks Premade meal (Becker and dressing) (Mac and cheese) Protein shake [...] polyneuropathy, with long-term current use of insulin ([facility]) During the appointment today all pertinent labs, imaging, health maintenance, and glucose readings were reviewed. Encouraged to check blood glucose throughout the day with some fasting and some PP readings. They are to bring their glucose meter/cgm in to all appointments. All of the patients questions, treatment options, and current care plan and goals were discussed. Acopy of this along with pertinent instructions were [...] serious comorbidity and body mass index (BMI) of36.0 to 36.9 in adult ([facility]) - Primary Follow up in [...] in the morning and 1 tablet (20 mg)in the evening and 1 tablet (20 mg) before bedtime. CELECOXIB (CELEBREX) 200 MG CAPSULE TAKE 1 CAPSULE BY MOUTH TWICE DAILY CONTINUOUS BLOOD GLUC SENSOR (DEXCOM G7 SENSOR) MISC Inject 1 Device under the skin See administration instructions Change every 10 days DIAZEPAM (VALIUM) 5 MG TABLET Take 1 tablet (5 mg) by mouth 1 (one) time for 1 dose Take 30 minutesprior to MRI. [facility] UNIFINE PENTIPS 31G [...] ( MAX 100 UNITS A DAY) LANCETS (Accord BiomaterialsTOUCH DELICA PLUS [id number]) MISC use to test BLOOD SUGAR THREE [...] ER 50 mg tablet,extended release 24 hr OutsparkUCH ULTRA TEST STRIP use to test BLOOD SUGAR THREE TIMES DAILY SIMVASTATIN (ZOCOR) 40 MG TABLET Take 40 mg by mouth in the morning and 40 mg before bedtime. SPIRONOLACTONE (ALDACTONE) 50 MG TABLET TAKE 1 TABLET BY MOUTH DAILY Modified Medications No medications on file Discontinued Medications CONTINUOUS BLOOD GLUC SENSOR (FREESTYLE CORNELIUS 2 SENSOR) [facility] [place] LOPERAMIDE [...] (750 mg) before bedtime. documented in this encounterSaint [facility] [id number] Procedure [facility]10-24-2023 Evaluation note* Encounter Date Diagnosis Assessment Notes Treatment Notes Treatment Clinical Notes Mar, GERD (gastroesophageal reflux disease) (ICD-10 - K21.9) The patient continues to complain of ongoing regurgitation. He is taking Lansoprazole 30 mg dialy & we will increase this to 30 mg bid. Mar, Hemorrhoids (ICD-10 - K64.9) Mar, Alternating constipation and diarrhea (ICD-10 - R19.8) [facility] Other 10-03-2023 Evaluation note* Encounter Date Diagnosis Assessment Notes Treatment Notes Treatment Clinical Notes Mar, Gastroesophageal ref lux disease with esophagitis (ICD-10 - K21.0) [facility] Other 08-28-2023 Hospital Discharge instructions Patient Education [...] under a microscope. This is called the Chester score and the total score can range from 6 10, indicating how likely it is that the cancer will spread (metastasize) to other parts of the body. The higher the score, the greater thelikelihood that the cancer will spread. Rosalina 6 or lower: This indicates that the cancer cells look similar to normal prostate cells (well differentiated). Chester 7: This indicates that the cancer cells [...] stress of having cancer. General instructions Take cgpy-wxl-llhgehm and prescription medicines only as told by your health care provider. If you have to go to the hospital, notify your cancer specialist (oncologist). Keep all follow-up visits. This is important. Where to find more information [place] [employer]: www.cancer.org [place] [employer]: www.cancer.net National Cancer [place]: www.cancer.gov Contact a health care provider if: [...] provider. Document Revised: 08/31/2021 Document Reviewed: 08/31/2021 [employer] Patient Education 2022 [employer]. Follow Up Care 02/03/2022 09:06:37 With:Chantale PETERSEN MDrick R, URL Address: [facility] [address], [place] [address]- [phone] When: Unknown Comments:1 yr w/ PSA [facility] 04-05-2023 Evaluation note* Encounter Date Diagnosis Assessment Notes Treatment Notes Treatment Clinical Notes Sep, Gastroesophageal ref lux disease with esophagitis (ICD-10 - K21.0) [facility]* Encounter Date Diagnosis Assessment Notes Treatment Notes Treatment Clinical Notes Jul, Diarrhea (ICD-10 - R19.7) Jul, GERD (gastroesophageal reflux disease) (ICD-10 - K21.9) Jul, Hemorrhoids (ICD-10 - K64.9) PATIENT TO START ANUSOL CREAM USE SITZ BATH NEEDED Jul, Dysphagia (ICD-10 - R13.10) [facility] Other 10-28-2022 NotePROCEDURE: XR FOOT RT MIN 3 VIEWS COMPARISON: None. HISTORY: Pain in right foot FINDINGS: BONES:No acute fracture or dislocation. Persistent hammertoe deformities. Moderate hallux valgus. 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 Bulky enthesopathic spurring of the calcaneus SOFT TISSUES:Negative. No visible soft tissue swelling. EFFUSION:None visible. OTHER: Negative. IMPRESSION: Degenerative changes Electronically authenticated by: SORIN SHORE Date: 2022-04-14 18:01[facility]08-19-2022 Hospital Discharge instructions Patient Education [...] urethra. Follow these instructions at home: Take iznw-ocj-eotwzjo and prescription medicines only as told by [...] 06/04/2006 Document Revised: 04/29/2019 Document Reviewed: 07/09/2017 [employer] Patient Education [place] Follow Up Care 08/05/2021 10:59:30 With:NICOLA RAYMUNDO, Peterson Owens, URL Address: [facility] [address], [place] [address]- When:1 year Comments:W/ PSA [facility] 08-17-2021 NoteHNO ID: [id number] Author: Fawad Diaz MD Service: ? Author [...] ASSESSMENT/PLAN:DIAGNOSIS: Prostate adenocarcinoma, initial PSA 14.65, biopsy Chester score 3 + 3 = 6 (grade [...] Fawad Diaz MD cc: Dank Campo MD ([facility]) [address] [place] [id number] Petersen Portions of the above note extracted and edited from previous visit as well as active information included in the EMR.[facility] 11-04-2020 NoteHNO ID: [id number] Author: Fawad Diaz MD Service: ? Author Type: Physician Type: Progress Notes Filed: 11/04/2020 9:44 AM Note Text: Radiation Oncology - Follow Up Note PATIENT NAME: Milad Seymour PATIENT DIAGNOSIS: DIAGNOSIS: Prostate adenocarcinoma, initial PSA 14.65, biopsy Chester score 3 + 3 = 6 (grade [...] Fawad Diaz MD cc: Dank Campo MD ([facility]) [address] [place] [id number] [facility]enPro[facility] HospitalEvaluation + Plan note Future Appointments Appointment Date:02/12/2023 09:15:00 AM Scheduled Provider:Peterson PETERSEN MD Location:[facility] Appointment Type:URO Office Visit Diagnostic Tests Pending * PSA Total 02/03/22 [facility] evaluation + Plan note Future Appointments Appointment Date:02/12/2023 09:15:00 AM Scheduled Provider:Peterson PETERSEN MD Location:[facility] Appointment Type:URO Office Visit [facility] evaluation + Plan note Future Appointments Appointment Date:02/15/2024 08:15:00 AM Scheduled Provider:Peterson PETERSEN MD Location:[facility] Appointment Type:URO Office Visit Diagnostic Tests Pending * PSA Total 02/12/23 [facility] evaluation + Plan note Future Appointments Appointment Date:02/04/2024 11:30:00 AM Scheduled Provider:Peterson PETERSEN MD Location:[facility] Appointment Type:URO Office Visit [facility] evaluation + Plan note Future Appointments Appointment Date:02/09/2025 08:45:00 AM Scheduled Provider:Peterson PETERSEN MD Location:[facility] Appointment Type:URO Office Visit Diagnostic Tests Pending * PSA Total 02/04/24 [facility] evaluation noteNo assessment information available [facility] Work Phone: evaluation noteNo InformationNort [employer] Other Evyxxdeeth note* Diagnosis Class 2 severe obesity due to excess calories with serious comorbidity and body mass index (BMI) of 36.0 to 36.9 in adult [place] Primary Type 2 diabetes mellitus with diabetic polyneuropathy, with long-term current use of insulin ([facility]) [facility] encounter [facility] Diagnosis Onset Date Resolution Status H/O rotator cuff surgery acu te [facility] Work Phone: evaluation note* Diagnosis Onset Date Resolution Status Diarrhea acute GERD (gastroesophageal reflux disease) acute [facility] Work Phone: evaluation note* Diagnosis Preop examination- Primary Unspecified pre-operative examination documented [facility] this encounter [facility]* Diagnosis Internal derangement of left shoulder- Primary documented in this encounter [facility]* Diagnosis Type 2 diabetes mellitus with diabetic polyneuropathy, with long-term current use of insulin ([facility])- Primary Class 2 severe obesity due to excess calories with serious comorbidity and body mass index (BMI) of 35.0 to 35.9 in adult ([facility])- Primary Type 2 diabetes mellitus with diabetic polyneuropathy, with long-term current use of insulin ([facility]) Long-term insulin use ([facility]) Lumbar spondylosis- Primary Lumbosacral spondylosis without myelopathy Benign essential hypertension ([facility]) Essential hypertension, benign Bilateral leg edema Edema Class 2 severe obesity due to excess calories with serious comorbidity and body mass index (BMI) of 36.0 to 36.9 in adult ([facility] Primary Type 2 diabetes mellitus with diabetic polyneuropathy, with long-term current use of insulin ([facility] Benign essential hypertension ([facility])- Primary Essential hypertension, benign Lumbar spondylosis Lumbosacral spondylosis without myelopathy Bilateral leg edema Edema Type 2 diabetes mellitus with diabetic polyneuropathy, with long-term current use of insulin ([facility] Hypercholesteremia ([facility] Pure hypercholesterolemia Encounter for long-term (current) use of medications Encounter for long-term (current) use of other medications Obesity (BMI 30-39.9) Body mass index [BMI] 36.0-36.9, adult (Z68.36) JARAD (generalized anxiety disorder) ([facility] Primary Generalized anxiety disorder Benign essential hypertension ([facility]) Essential hypertension, benign Class 2 severe obesity due to excess calories with serious comorbidity and body mass index (BMI) of 35.0 to 35.9 in adult ([facility] Primary Type 2 diabetes mellitus with diabetic polyneuropathy, with long-term current use of insulin ([facility] Long-term insulin use ([facility] Benign essential hypertension ([facility])- Primary Essential hypertension, benign JARAD (generalized anxiety disorder) ([facility] Generalized anxiety disorder Bilateral leg edema Edema Lumbar spondylosis Lumbosacral spondylosis without myelopathy Benign essential hypertension ([facility])- Primary Essential hypertension, benign JARAD (generalized anxiety disorder) ([facility] Generalized anxiety disorder Lumbar spondylosis Lumbosacral spondylosis without myelopathy Bilateral leg edema Edema Prostate cancer ([facility]) Malignant neoplasm of prostate Type 2 diabetes mellitus with hyperglycemia, with long-term current use of insulin ([facility] Class 2 severe obesity due to excess calories with serious comorbidity and body mass index (BMI) of 35.0 to 35.9 in adult ([facility] Primary Type 2 diabetes mellitus with hyperglycemia, with long-term current use of insulin ([facility] Type 2 diabetes mellitus with diabetic polyneuropathy, with long-term current use of insulin ([facility] Long-term insulin use ([facility]) Type 2 diabetes mellitus with stage 3a chronic kidney disease, with long-term current use of insulin (HCC) ([facility]) Pre-op examination- Primary Preop examination Unspecified pre-operative examination documented [facility]* Diagnosis Type 2 diabetes mellitus with diabetic polyneuropathy, with long-term current use of insulin (CMS/HCC)- Primary Class 2 severe obesity due to excess calories with serious comorbidity and body mass index (BMI) of 35.0 to 35.9 in adult ([facility])- Primary Type 2 diabetes mellitus with diabetic polyneuropathy, with long-term current use of insulin (CMS/HCC) Long-term insulin use (CMS/HCC) Lumbar spondylosis- Primary Lumbosacral spondylosis without myelopathy Benign essential hypertension (CMS/HCC) Essential hypertension, benign Bilateral leg edema Edema Class 2 severe obesity due to excess calories with serious comorbidity and body mass index (BMI) of 36.0 to 36.9 in adult ([facility])- Primary Type 2 diabetes mellitus with diabetic polyneuropathy, with long-term current use of insulin ([facility]) Benign essential hypertension (CMS/HCC)- Primary Essential hypertension, benign Lumbar spondylosis Lumbosacral spondylosis without myelopathy Bilateral leg edema Edema Type 2 diabetes mellitus with diabetic polyneuropathy, with long-term current use of insulin ([facility]) Hypercholesteremia ([facility]) Pure hypercholesterolemia Encounter for long-term (current) use of medications Encounter for long-term (current) use of other medications Obesity (BMI 30-39.9) Body mass index [BMI] 36.0-36.9, adult (Z68.36) JARAD (generalized anxiety disorder) (CMS/HCC)- Primary Generalized anxiety disorder Benign essential hypertension ([facility]/HCC) Essential hypertension, benign Class 2 severe obesity due to excess calories with serious comorbidity and body mass index (BMI) of 35.0 to 35.9 in adult ([facility])- Primary Type 2 diabetes mellitus with diabetic polyneuropathy, with long-term current use of insulin (CMS/HCC) Long-term insulin use ([facility]/HCC) Benign essential hypertension (CMS/HCC)- Primary Essential hypertension, benign JARAD (generalized anxiety disorder) (CMS/HCC) Generalized anxiety disorder Bilateral leg edema Edema Lumbar spondylosis Lumbosacral spondylosis without myelopathy Benign essential hypertension (CMS/HCC)- Primary Essential hypertension, benign JARAD (generalized anxiety disorder) (CMS/[facility]) Generalized anxiety disorder Lumbar spondylosis Lumbosacral spondylosis without myelopathy Bilateral leg edema Edema Prostate cancer ([facility]) Malignant neoplasm of prostate Type 2 diabetes mellitus with hyperglycemia, with long-term current use of insulin ([facility]) Class 2 severe obesity due to excess calories with serious comorbidity and body mass index (BMI) of 35.0 to 35.9 in adult ([facility])- Primary Type 2 diabetes mellitus with hyperglycemia, with long-term current use of insulin ([facility]) Type 2 diabetes mellitus with diabetic polyneuropathy, with long-term current use of insulin ([facility]) Long-term insulin use ([facility]) Type 2 diabetes mellitus with stage 3a chronic kidney disease, with long-term current use of insulin ([facility]) ([facility] Essential (primary) hypertension ([facility]) Unspecified essential hypertension documented in this encounter [facility]* Diagnosis Type 2 diabetes mellitus with diabetic polyneuropathy, with long-term current use of insulin ([facility])- Primary Class 2 severe obesity due to excess calories with serious comorbidity and body mass index (BMI) of 35.0 to 35.9 in adult ([facility])- Primary Type 2 diabetes mellitus with diabetic polyneuropathy, with long-term current use of insulin ([facility]) Long-term insulin use ([facility] Lumbar spondylosis- Primary Lumbosacral spondylosis without myelopathy Benign essential hypertension ([facility]) Essential hypertension, benign Bilateral leg edema Edema Class 2 severe obesity due to excess calories with serious comorbidity and body mass index (BMI) of 36.0 to 36.9 in adult ([facility])- Primary Type 2 diabetes mellitus with diabetic polyneuropathy, with long-term current use of insulin ([facility]) Benign essential hypertension ([facility])- Primary Essential hypertension, benign Lumbar spondylosis Lumbosacral spondylosis without myelopathy Bilateral leg edema Edema Type 2 diabetes mellitus with diabetic polyneuropathy, with long-term current use of insulin ([facility]) Hypercholesteremia ([facility]) Pure hypercholesterolemia Encounter for long-term (current) use of medications Encounter for long-term (current) use of other medications Obesity (BMI 30-39.9) Body mass index [BMI] 36.0-36.9, adult (Z68.36) JARAD (generalized anxiety disorder) ([facility])- Primary Generalized anxiety disorder Benign essential hypertension ([facility]) Essential hypertension, benign Class 2 severe obesity due to excess calories with serious comorbidity and body mass index (BMI) of 35.0 to 35.9 in adult ([facility])- Primary Type 2 diabetes mellitus with diabetic polyneuropathy, with long-term current use of insulin ([facility]) Long-term insulin use ([facility]) Benign essential hypertension ([facility]/HCC)- Primary Essential hypertension, benign JARAD (generalized anxiety disorder) ([facility]/HCC) Generalized anxiety disorder Bilateral leg edema Edema Lumbar spondylosis Lumbosacral spondylosis without myelopathy Benign essential hypertension (CMS/HCC)- Primary Essential hypertension, benign JARAD (generalized anxiety disorder) ([facility]) Generalized anxiety disorder Lumbar spondylosis Lumbosacral spondylosis without myelopathy Bilateral leg edema Edema Prostate cancer ([facility]) Malignant neoplasm of prostate Type 2 diabetes mellitus with hyperglycemia, with long-term current use of insulin ([facility]) Class 2 severe obesity due to excess calories with serious comorbidity and body mass index (BMI) of 35.0 to 35.9 in adult ([facility])- Primary Type 2 diabetes mellitus with hyperglycemia, with long-term current use of insulin ([facility]) Type 2 diabetes mellitus with diabetic polyneuropathy, with long-term current use of insulin ([facility]) Long-term insulin use ([facility]) Type 2 diabetes mellitus with stage 3a chronic kidney disease, with long-term current use of insulin ([facility]) ([facility]) Internal derangement of left shoulder- Primary Type 2 diabetes mellitus with diabetic polyneuropathy, with long-term current use of insulin ([facility]) documented in this encounter [facility]* Diagnosis Type 2 diabetes mellitus with diabetic polyneuropathy, with long-term current use of insulin ([facility])- Primary Class 2 severe obesity due to excess calories with serious comorbidity and body mass index (BMI) of 35.0 to 35.9 in adult ([facility])- Primary Type 2 diabetes mellitus with diabetic polyneuropathy, with long-term current use of insulin ([facility]) Long-term insulin use ([facility]) Lumbar spondylosis- Primary Lumbosacral spondylosis without myelopathy Benign essential hypertension ([facility]) Essential hypertension, benign Bilateral leg edema Edema Class 2 severe obesity due to excess calories with serious comorbidity and body mass index (BMI) of 36.0 to 36.9 in adult ([facility])- Primary Type 2 diabetes mellitus with diabetic polyneuropathy, with long-term current use of insulin ([facility]) Benign essential hypertension ([facility])- Primary Essential hypertension, benign Lumbar spondylosis Lumbosacral spondylosis without myelopathy Bilateral leg edema Edema Type 2 diabetes mellitus with diabetic polyneuropathy, with long-term current use of insulin ([facility]) Hypercholesteremia ([facility]) Pure hypercholesterolemia Encounter for long-term (current) use of medications Encounter for long-term (current) use of other medications Obesity (BMI 30-39.9) Body mass index [BMI] 36.0-36.9, adult (Z68.36) JARAD (generalized anxiety disorder) ([facility])- Primary Generalized anxiety disorder Benign essential hypertension ([facility]) Essential hypertension, benign Class 2 severe obesity due to excess calories with serious comorbidity and body mass index (BMI) of 35.0 to 35.9 in adult ([facility])- Primary Type 2 diabetes mellitus with diabetic polyneuropathy, with long-term current use of insulin ([facility]) Long-term insulin use ([facility]) Benign essential hypertension ([facility])- Primary Essential hypertension, benign JARAD (generalized anxiety disorder) ([facility]) Generalized anxiety disorder Bilateral leg edema Edema Lumbar spondylosis Lumbosacral spondylosis without myelopathy Benign essential hypertension ([facility])- Primary Essential hypertension, benign JARAD (generalized anxiety disorder) ([facility]) Generalized anxiety disorder Lumbar spondylosis Lumbosacral spondylosis without myelopathy Bilateral leg edema Edema Prostate cancer ([facility]) Malignant neoplasm of prostate Type 2 diabetes mellitus with hyperglycemia, with long-term current use of insulin ([facility]) Class 2 severe obesity due to excess calories with serious comorbidity and body mass index (BMI) of 35.0 to 35.9 in adult ([facility])- Primary Type 2 diabetes mellitus with hyperglycemia, with long-term current use of insulin ([facility]) Type 2 diabetes mellitus with diabetic polyneuropathy, with long-term current use of insulin ([facility]) Long-term insulin use ([facility]) Type 2 diabetes mellitus with stage 3a chronic kidney disease, with long-term current use of insulin ([facility]) ([facility]) Class 2 severe obesity due to excess calories with serious comorbidity and body mass index (BMI) of 35.0 to 35.9 in adult ([facility])- Primary Type 2 diabetes mellitus with diabetic polyneuropathy, with long-term current use of insulin ([facility]) Type 2 diabetes mellitus with stage 3a chronic kidney disease, with long-term current use of insulin (HCC) ([facility]) Long-term insulin use ([facility]) documented in this encounter [facility] HealthcareEvaluation note* Diagnosis Type 2 diabetes mellitus with diabetic polyneuropathy, with long-term current use of insulin ([facility])- Primary Class 2 severe obesity due to excess calories with serious comorbidity and body mass index (BMI) of 35.0 to 35.9 in adult ([facility])- Primary Type 2 diabetes mellitus with diabetic polyneuropathy, with long-term current use of insulin ([facility]) Long-term insulin use ([facility]) Lumbar spondylosis- Primary Lumbosacral spondylosis without myelopathy Benign essential hypertension ([facility]) Essential hypertension, benign Bilateral leg edema Edema Class 2 severe obesity due to excess calories with serious comorbidity and body mass index (BMI) of 36.0 to 36.9 in adult ([facility])- Primary Type 2 diabetes mellitus with diabetic polyneuropathy, with long-term current use of insulin ([facility]) Benign essential hypertension ([facility])- Primary Essential hypertension, benign Lumbar spondylosis Lumbosacral spondylosis without myelopathy Bilateral leg edema Edema Type 2 diabetes mellitus with diabetic polyneuropathy, with long-term current use of insulin ([facility]) Hypercholesteremia ([facility]) Pure hypercholesterolemia Encounter for long-term (current) use of medications Encounter for long-term (current) use of other medications Obesity (BMI 30-39.9) Body mass index [BMI] 36.0-36.9, adult (Z68.36) JARAD (generalized anxiety disorder) ([facility])- Primary Generalized anxiety disorder Benign essential hypertension ([facility]) Essential hypertension, benign Class 2 severe obesity due to excess calories with serious comorbidity and body mass index (BMI) of 35.0 to 35.9 in adult ([facility])- Primary Type 2 diabetes mellitus with diabetic polyneuropathy, with long-term current use of insulin ([facility]) Long-term insulin use ([facility]) Benign essential hypertension (CMS/HCC)- Primary Essential hypertension, benign JARAD (generalized anxiety disorder) ([facility]) Generalized anxiety disorder Bilateral leg edema Edema Lumbar spondylosis Lumbosacral spondylosis without myelopathy Benign essential hypertension (CMS/HCC)- Primary Essential hypertension, benign JARAD (generalized anxiety disorder) ([facility]) Generalized anxiety disorder Lumbar spondylosis Lumbosacral spondylosis without myelopathy Bilateral leg edema Edema Prostate cancer ([facility]) Malignant neoplasm of prostate Type 2 diabetes mellitus with hyperglycemia, with long-term current use of insulin ([facility]) Class 2 severe obesity due to excess calories with serious comorbidity and body mass index (BMI) of 35.0 to 35.9 in adult ([facility])- Primary Type 2 diabetes mellitus with hyperglycemia, with long-term current use of insulin ([facility]) Type 2 diabetes mellitus with diabetic polyneuropathy, with long-term current use of insulin ([facility]) Long-term insulin use ([facility]) Type 2 diabetes mellitus with stage 3a chronic kidney disease, with long-term current use of insulin ([facility]) ([facility]) Class 2 severe obesity due to excess calories with serious comorbidity and body mass index (BMI) of 35.0 to 35.9 in adult ([facility])- Primary Type 2 diabetes mellitus with diabetic polyneuropathy, with long-term current use of insulin ([facility]) Type 2 diabetes mellitus with stage 3a chronic kidney disease, with long-term current use of insulin ([facility]) ([facility]) Long-term insulin use ([facility]) S/P arthroscopy of left shoulder- Primary documented in this encounter [facility]Evaluation note* Diagnosis Type 2 diabetes mellitus with diabetic polyneuropathy, with long-term current use of insulin ([facility])- Primary Class 2 severe obesity due to excess calories with serious comorbidity and body mass index (BMI) of 35.0 to 35.9 in adult ([facility])- Primary Type 2 diabetes mellitus with diabetic polyneuropathy, with long-term current use of insulin ([facility]) Long-term insulin use ([facility]) Lumbar spondylosis- Primary Lumbosacral spondylosis without myelopathy Benign essential hypertension ([facility]) Essential hypertension, benign Bilateral leg edema Edema Class 2 severe obesity due to excess calories with serious comorbidity and body mass index (BMI) of 36.0 to 36.9 in adult ([facility])- Primary Type 2 diabetes mellitus with diabetic polyneuropathy, with long-term current use of insulin ([facility]) Benign essential hypertension ([facility])- Primary Essential hypertension, benign Lumbar spondylosis Lumbosacral spondylosis without myelopathy Bilateral leg edema Edema Type 2 diabetes mellitus with diabetic polyneuropathy, with long-term current use of insulin ([facility]) Hypercholesteremia ([facility]) Pure hypercholesterolemia Encounter for long-term (current) use of medications Encounter for long-term (current) use of other medications Obesity (BMI 30-39.9) Body mass index [BMI] 36.0-36.9, adult (Z68.36) JARAD (generalized anxiety disorder) ([facility])- Primary Generalized anxiety disorder Benign essential hypertension ([facility]) Essential hypertension, benign Class 2 severe obesity due to excess calories with serious comorbidity and body mass index (BMI) of 35.0 to 35.9 in adult ([facility] Primary Type 2 diabetes mellitus with diabetic polyneuropathy, with long-term current use of insulin ([facility]) Long-term insulin use ([facility]) Benign essential hypertension ([facility])- Primary Essential hypertension, benign JARAD (generalized anxiety disorder) ([facility]) Generalized anxiety disorder Bilateral leg edema Edema Lumbar spondylosis Lumbosacral spondylosis without myelopathy Benign essential hypertension ([facility])- Primary Essential hypertension, benign JARAD (generalized anxiety disorder) ([facility]) Generalized anxiety disorder Lumbar spondylosis Lumbosacral spondylosis without myelopathy Bilateral leg edema Edema Prostate cancer ([facility]) Malignant neoplasm of prostate Type 2 diabetes mellitus with hyperglycemia, with long-term current use of insulin ([facility]) Class 2 severe obesity due to excess calories with serious comorbidity and body mass index (BMI) of 35.0 to 35.9 in adult ([facility] Primary Type 2 diabetes mellitus with hyperglycemia, with long-term current use of insulin ([facility]) Type 2 diabetes mellitus with diabetic polyneuropathy, with long-term current use of insulin ([facility]) Long-term insulin use ([facility]) Type 2 diabetes mellitus with stage 3a chronic kidney disease, with long-term current use of insulin ([facility]) ([facility] Class 2 severe obesity due to excess calories with serious comorbidity and body mass index (BMI) of 35.0 to 35.9 in adult ([facility])- Primary Type 2 diabetes mellitus with diabetic polyneuropathy, with long-term current use of insulin ([facility]) Type 2 diabetes mellitus with stage 3a chronic kidney disease, with long-term current use of insulin ([facility]) ([facility]) Long-term insulin use ([facility]) S/P arthroscopy of left shoulder- Primary documented in this encounter [facility] HealthcareEvaluation note* Diagnosis Type 2 diabetes mellitus with diabetic polyneuropathy, with long-term current use of insulin ([facility])- Primary Class 2 severe obesity due to excess calories with serious comorbidity and body mass index (BMI) of 35.0 to 35.9 in adult ([facility])- Primary Type 2 diabetes mellitus with diabetic polyneuropathy, with long-term current use of insulin ([facility]) Long-term insulin use ([facility]) Lumbar spondylosis- Primary Lumbosacral spondylosis without myelopathy Benign essential hypertension ([facility]) Essential hypertension, benign Bilateral leg edema Edema Class 2 severe obesity due to excess calories with serious comorbidity and body mass index (BMI) of 36.0 to 36.9 in adult ([facility])- Primary Type 2 diabetes mellitus with diabetic polyneuropathy, with long-term current use of insulin ([facility]) Benign essential hypertension ([facility])- Primary Essential hypertension, benign Lumbar spondylosis Lumbosacral spondylosis without myelopathy Bilateral leg edema Edema Type 2 diabetes mellitus with diabetic polyneuropathy, with long-term current use of insulin ([facility]) Hypercholesteremia ([facility]) Pure hypercholesterolemia Encounter for long-term (current) use of medications Encounter for long-term (current) use of other medications Obesity (BMI 30-39.9) Body mass index [BMI] 36.0-36.9, adult (Z68.36) JARAD (generalized anxiety disorder) ([facility])- Primary Generalized anxiety disorder Benign essential hypertension ([facility]) Essential hypertension, benign Class 2 severe obesity due to excess calories with serious comorbidity and body mass index (BMI) of 35.0 to 35.9 in adult ([facility] Primary Type 2 diabetes mellitus with diabetic polyneuropathy, with long-term current use of insulin ([facility]) Long-term insulin use ([facility]) Benign essential hypertension ([facility])- Primary Essential hypertension, benign JARAD (generalized anxiety disorder) ([facility]) Generalized anxiety disorder Bilateral leg edema Edema Lumbar spondylosis Lumbosacral spondylosis without myelopathy Benign essential hypertension ([facility]/HCC)- Primary Essential hypertension, benign JARAD (generalized anxiety disorder) ([facility]) Generalized anxiety disorder Lumbar spondylosis Lumbosacral spondylosis without myelopathy Bilateral leg edema Edema Prostate cancer ([facility]) Malignant neoplasm of prostate Type 2 diabetes mellitus with hyperglycemia, with long-term current use of insulin ([facility]) Class 2 severe obesity due to excess calories with serious comorbidity and body mass index (BMI) of 35.0 to 35.9 in adult ([facility])- Primary Type 2 diabetes mellitus with hyperglycemia, with long-term current use of insulin ([facility]) Type 2 diabetes mellitus with diabetic polyneuropathy, with long-term current use of insulin ([facility]) Long-term insulin use ([facility]) Type 2 diabetes mellitus with stage 3a chronic kidney disease, with long-term current use of insulin ([facility]) ([facility] Class 2 severe obesity due to excess calories with serious comorbidity and body mass index (BMI) of 35.0 to 35.9 in adult ([facility])- Primary Type 2 diabetes mellitus with diabetic polyneuropathy, with long-term current use of insulin ([facility]) Type 2 diabetes mellitus with stage 3a chronic kidney disease, with long-term current use of insulin ([facility]) ([facility]) Long-term insulin use ([facility]) S/P arthroscopy of left shoulder- Primary documented in this encounter [facility] HealthcareEvaluation note* Diagnosis Type 2 diabetes mellitus with diabetic polyneuropathy, with long-term current use of insulin ([facility])- Primary Class 2 severe obesity due to excess calories with serious comorbidity and body mass index (BMI) of 35.0 to 35.9 in adult ([facility])- Primary Type 2 diabetes mellitus with diabetic polyneuropathy, with long-term current use of insulin ([facility]) Long-term insulin use ([facility]) Lumbar spondylosis- Primary Lumbosacral spondylosis without myelopathy Benign essential hypertension ([facility]) Essential hypertension, benign Bilateral leg edema Edema Class 2 severe obesity due to excess calories with serious comorbidity and body mass index (BMI) of 36.0 to 36.9 in adult ([facility])- Primary Type 2 diabetes mellitus with diabetic polyneuropathy, with long-term current use of insulin ([facility]) Benign essential hypertension ([facility])- Primary Essential hypertension, benign Lumbar spondylosis Lumbosacral spondylosis without myelopathy Bilateral leg edema Edema Type 2 diabetes mellitus with diabetic polyneuropathy, with long-term current use of insulin ([facility]) Hypercholesteremia ([facility]) Pure hypercholesterolemia Encounter for long-term (current) use of medications Encounter for long-term (current) use of other medications Obesity (BMI 30-39.9) Body mass index [BMI] 36.0-36.9, adult (Z68.36) JARAD (generalized anxiety disorder) ([facility])- Primary Generalized anxiety disorder Benign essential hypertension ([facility]) Essential hypertension, benign Class 2 severe obesity due to excess calories with serious comorbidity and body mass index (BMI) of 35.0 to 35.9 in adult ([facility] Primary Type 2 diabetes mellitus with diabetic polyneuropathy, with long-term current use of insulin ([facility]) Long-term insulin use ([facility]) Benign essential hypertension ([facility])- Primary Essential hypertension, benign JARAD (generalized anxiety disorder) ([facility]) Generalized anxiety disorder Bilateral leg edema Edema Lumbar spondylosis Lumbosacral spondylosis without myelopathy Benign essential hypertension ([facility])- Primary Essential hypertension, benign JARAD (generalized anxiety disorder) ([facility]) Generalized anxiety disorder Lumbar spondylosis Lumbosacral spondylosis without myelopathy Bilateral leg edema Edema Prostate cancer ([facility]) Malignant neoplasm of prostate Type 2 diabetes mellitus with hyperglycemia, with long-term current use of insulin ([facility]) Class 2 severe obesity due to excess calories with serious comorbidity and body mass index (BMI) of 35.0 to 35.9 in adult ([facility] Primary Type 2 diabetes mellitus with hyperglycemia, with long-term current use of insulin ([facility]) Type 2 diabetes mellitus with diabetic polyneuropathy, with long-term current use of insulin ([facility]) Long-term insulin use ([facility]) Type 2 diabetes mellitus with stage 3a chronic kidney disease, with long-term current use of insulin ([facility]) ([facility]) Class 2 severe obesity due to excess calories with serious comorbidity and body mass index (BMI) of 35.0 to 35.9 in adult ([facility] Primary Type 2 diabetes mellitus with diabetic polyneuropathy, with long-term current use of insulin ([facility]) Type 2 diabetes mellitus with stage 3a chronic kidney disease, with long-term current use of insulin ([facility]) ([facility]) Long-term insulin use ([facility]) S/P arthroscopy of left shoulder- Primary Left shoulder pain, unspecified chronicity documented in this encounter [facility] HealthcareEvaluation note* Diagnosis Internal derangement of left shoulder- Primary Acute pain of left shoulder documented in this encounter [facility] HealthcareEvaluation note* Diagnosis Type 2 diabetes mellitus with diabetic polyneuropathy, with long-term current use of insulin ([facility])- Primary Class 2 severe obesity due to excess calories with serious comorbidity and body mass index (BMI) of 35.0 to 35.9 in adult ([facility] Primary Type 2 diabetes mellitus with diabetic polyneuropathy, with long-term current use of insulin ([facility] Long-term insulin use ([facility]) Lumbar spondylosis- Primary Lumbosacral spondylosis without myelopathy Benign essential hypertension ([facility]) Essential hypertension, benign Bilateral leg edema Edema Class 2 severe obesity due to excess calories with serious comorbidity and body mass index (BMI) of 36.0 to 36.9 in adult ([facility] Primary Type 2 diabetes mellitus with diabetic polyneuropathy, with long-term current use of insulin ([facility]) Benign essential hypertension ([facility])- Primary Essential hypertension, benign Lumbar spondylosis Lumbosacral spondylosis without myelopathy Bilateral leg edema Edema Type 2 diabetes mellitus with diabetic polyneuropathy, with long-term current use of insulin ([facility]) Hypercholesteremia ([facility]) Pure hypercholesterolemia Encounter for long-term (current) use of medications Encounter for long-term (current) use of other medications Obesity (BMI 30-39.9) Body mass index [BMI] 36.0-36.9, adult (Z68.36) JARAD (generalized anxiety disorder) ([facility] Primary Generalized anxiety disorder Benign essential hypertension ([facility]) Essential hypertension, benign Class 2 severe obesity due to excess calories with serious comorbidity and body mass index (BMI) of 35.0 to 35.9 in adult ([facility] Primary Type 2 diabetes mellitus with diabetic [...] long-term current use of insulin (HCC) (CMS/HCC) documented in this encounter [facility] HealthcareEvaluation note* Diagnosis Type 2 diabetes mellitus with diabetic polyneuropathy, with long-term current use of insulin (CMS/HCC)- Primary Class 2 severe obesity due to excess calories with serious comorbidity and body mass index (BMI) of 35.0 to 35.9 in adult ([facility])- Primary Type 2 diabetes mellitus with diabetic polyneuropathy, with long-term current use of insulin [place] Long-term insulin use [place] Lumbar spondylosis- Primary Lumbosacral spondylosis without myelopathy Benign essential hypertension ([facility]) Essential hypertension, benign Bilateral leg edema Edema Class 2 severe obesity due to excess calories with serious comorbidity and body mass index (BMI) of 36.0 to 36.9 in adult ([facility] [place] Primary Type 2 diabetes mellitus with diabetic polyneuropathy, with long-term current use of insulin ([facility] [place] Benign essential hypertension ([facility] [place] Primary Essential hypertension, benign Lumbar spondylosis Lumbosacral spondylosis without myelopathy Bilateral leg edema Edema Type 2 diabetes mellitus with diabetic polyneuropathy, with long-term current use of insulin ([facility] [place] Hypercholesteremia ([facility] [place] Pure hypercholesterolemia Encounter for long-term (current) use of medications Encounter for long-term (current) use of other medications Obesity (BMI 30-39.9) Body mass index [BMI] 36.0-36.9, adult (Z68.36) JARAD (generalized anxiety disorder) ([facility] [place] Primary Generalized anxiety disorder Benign essential hypertension [facility] Essential hypertension, benign Class 2 severe obesity due to excess calories with serious comorbidity and body mass index (BMI) of 35.0 to 35.9 in adult ([facility] [place] Primary Type 2 diabetes mellitus with diabetic polyneuropathy, with long-term current use of insulin ([facility] [place] Long-term insulin use ([facility] [place] Benign essential hypertension ([facility] [place] Primary Essential hypertension, benign JARAD (generalized anxiety disorder) ([facility] [place] Generalized anxiety disorder Bilateral leg edema Edema Lumbar spondylosis Lumbosacral spondylosis without myelopathy Benign essential hypertension ([facility])- Primary Essential hypertension, benign JARAD (generalized anxiety disorder) ([facility] Generalized anxiety disorder Lumbar spondylosis Lumbosacral spondylosis without myelopathy Bilateral leg edema Edema Prostate cancer ([facility] [place]) Malignant neoplasm of prostate Type 2 diabetes mellitus with hyperglycemia, with long-term current use of insulin ([facility] [place] Class 2 severe obesity due to excess calories with serious comorbidity and body mass index (BMI) of 35.0 to 35.9 in adult ([facility] [place] Primary Type 2 diabetes mellitus with hyperglycemia, with long-term current use of insulin ([facility]) Type 2 diabetes mellitus with diabetic polyneuropathy, with long-term current use of insulin ([facility]) Long-term insulin use ([facility]) Type 2 diabetes mellitus with stage 3a chronic kidney disease, with long-term current use of insulin (HCC) ([facility]) Class 2 severe obesity due to excess calories with serious comorbidity and body mass index (BMI) of 35.0 to 35.9 in adult ([facility])- Primary Type 2 diabetes mellitus with diabetic polyneuropathy, with long-term current use of insulin ([facility]) Type 2 diabetes mellitus with stage 3a chronic kidney disease, with long-term current use of insulin ([facility]) ([facility]) Long-term insulin use ([facility]) Benign essential hypertension ([facility])- Primary Essential hypertension, benign JARAD (generalized anxiety disorder) ([facility]) Generalized anxiety disorder Lumbar spondylosis Lumbosacral spondylosis without myelopathy Type 2 diabetes mellitus with diabetic polyneuropathy, with long-term current use of insulin ([facility]) Type 2 diabetes mellitus with stage 3b chronic kidney disease, with long-term current use of insulin ([facility]) ([facility]) Left shoulder pain, unspecified chronicity- Primary S/P arthroscopy of left shoulder documented [facility] Diagnosis Type 2 diabetes mellitus with diabetic polyneuropathy, with long-term current use of insulin ([facility])- Primary Class 2 severe obesity due to excess calories with serious comorbidity and body mass index (BMI) of 35.0 to 35.9 in adult ([facility])- Primary Type 2 diabetes mellitus with diabetic polyneuropathy, with long-term current use of insulin ([facility]) Long-term insulin use ([facility]) Lumbar spondylosis- Primary Lumbosacral spondylosis without myelopathy Benign essential hypertension ([facility]) Essential hypertension, benign Bilateral leg edema Edema Class 2 severe obesity due to excess calories with serious comorbidity and body mass index (BMI) of 36.0 to 36.9 in adult ([facility])- Primary Type 2 diabetes mellitus with diabetic polyneuropathy, with long-term current use of insulin ([facility]) Benign essential hypertension ([facility])- Primary Essential hypertension, benign Lumbar spondylosis Lumbosacral spondylosis without myelopathy Bilateral leg edema Edema Type 2 diabetes mellitus with diabetic polyneuropathy, with long-term current use of insulin ([facility]) Hypercholesteremia ([facility]) Pure hypercholesterolemia Encounter for long-term (current) use of medications Encounter for long-term (current) use of other medications Obesity (BMI 30-39.9) Body mass index [BMI] 36.0-36.9, adult (Z68.36) JARAD (generalized anxiety disorder) ([facility])- Primary Generalized anxiety disorder Benign essential hypertension ([facility]) Essential hypertension, benign Class 2 severe obesity due to excess calories with serious comorbidity and body mass index (BMI) of 35.0 to 35.9 in adult ([facility])- Primary Type 2 diabetes mellitus with diabetic polyneuropathy, with long-term current use of insulin ([facility]) Long-term insulin use ([facility]) Benign essential hypertension (CMS/HCC)- Primary Essential hypertension, benign JARAD (generalized anxiety disorder) ([facility]) Generalized anxiety disorder Bilateral leg edema Edema Lumbar spondylosis Lumbosacral spondylosis without myelopathy Benign essential hypertension (CMS/HCC)- Primary Essential hypertension, benign JARAD (generalized anxiety disorder) ([facility]) Generalized anxiety disorder Lumbar spondylosis Lumbosacral spondylosis without myelopathy Bilateral leg edema Edema Prostate cancer ([facility]) Malignant neoplasm of prostate Type 2 diabetes mellitus with hyperglycemia, with long-term current use of insulin ([facility]) Class 2 severe obesity due to excess calories with serious comorbidity and body mass index (BMI) of 35.0 to 35.9 in adult ([facility])- Primary Type 2 diabetes mellitus with hyperglycemia, with long-term current use of insulin ([facility]) Type 2 diabetes mellitus with diabetic polyneuropathy, with long-term current use of insulin ([facility]) Long-term insulin use ([facility]) Type 2 diabetes mellitus with stage 3a chronic kidney disease, with long-term current use of insulin ([facility]) ([facility]) Class 2 severe obesity due to excess calories with serious comorbidity and body mass index (BMI) of 35.0 to 35.9 in adult ([facility])- Primary Type 2 diabetes mellitus with diabetic polyneuropathy, with long-term current use of insulin ([facility]) Type 2 diabetes mellitus with stage 3a chronic kidney disease, with long-term current use of insulin ([facility]) ([facility]) Long-term insulin use ([facility]) Benign essential hypertension ([facility])- Primary Essential hypertension, benign JARAD (generalized anxiety disorder) ([facility]) Generalized anxiety disorder Lumbar spondylosis Lumbosacral spondylosis without myelopathy Type 2 diabetes mellitus with diabetic polyneuropathy, with long-term current use of insulin ([facility]) Type 2 diabetes mellitus with stage 3b chronic kidney disease, with long-term current use of insulin ([facility]) ([facility]) Contusion of left foot, initial encounter- Primary Pain in left foot Pain in soft tissues of limb Diabetic polyneuropathy associated with type 2 diabetes mellitus ([facility]) Encounter for long-term (current) use of insulin ([facility]) Encounter for long-term (current) use of insulin documented in this encounter [facility]* Diagnosis Type 2 diabetes mellitus with diabetic polyneuropathy, with long-term current use of insulin ([facility])- Primary Class 2 severe obesity due to excess calories with serious comorbidity and body mass index (BMI) of 35.0 to 35.9 in adult ([facility])- Primary Type 2 diabetes mellitus with diabetic polyneuropathy, with long-term current use of insulin ([facility]) Long-term insulin use ([facility]) Lumbar spondylosis- Primary Lumbosacral spondylosis without myelopathy Benign essential hypertension ([facility]) Essential hypertension, benign Bilateral leg edema Edema Class 2 severe obesity due to excess calories with serious comorbidity and body mass index (BMI) of 36.0 to 36.9 in adult ([facility])- Primary Type 2 diabetes mellitus with diabetic polyneuropathy, with long-term current use of insulin ([facility]) Benign essential hypertension ([facility])- Primary Essential hypertension, benign Lumbar spondylosis Lumbosacral spondylosis without myelopathy Bilateral leg edema Edema Type 2 diabetes mellitus with diabetic polyneuropathy, with long-term current use of insulin ([facility]) Hypercholesteremia ([facility]) Pure hypercholesterolemia Encounter for long-term (current) use of medications Encounter for long-term (current) use of other medications Obesity (BMI 30-39.9) Body mass index [BMI] 36.0-36.9, adult (Z68.36) JARAD (generalized anxiety disorder) ([facility])- Primary Generalized anxiety disorder Benign essential hypertension ([facility]/HCC) Essential hypertension, benign Class 2 severe obesity due to excess calories with serious comorbidity and body mass index (BMI) of 35.0 to 35.9 in adult ([facility])- Primary Type 2 diabetes mellitus with diabetic polyneuropathy, with long-term current use of insulin (CMS/HCC) Long-term insulin use (CMS/HCC) Benign essential hypertension (CMS/HCC)- Primary Essential hypertension, benign JARAD (generalized anxiety disorder) ([facility]) Generalized anxiety disorder Bilateral leg edema Edema Lumbar spondylosis Lumbosacral spondylosis without myelopathy Benign essential hypertension (CMS/HCC)- Primary Essential hypertension, benign JARAD (generalized anxiety disorder) ([facility]) Generalized anxiety disorder Lumbar spondylosis Lumbosacral spondylosis without myelopathy Bilateral leg edema Edema Prostate cancer ([facility]) Malignant neoplasm of prostate Type 2 diabetes mellitus with hyperglycemia, with long-term current use of insulin ([facility]) Class 2 severe obesity due to excess calories with serious comorbidity and body mass index (BMI) of 35.0 to 35.9 in adult ([facility])- Primary Type 2 diabetes mellitus with hyperglycemia, with long-term current use of insulin ([facility]) Type 2 diabetes mellitus with diabetic polyneuropathy, with long-term current use of insulin ([facility]) Long-term insulin use ([facility]) Type 2 diabetes mellitus with stage 3a chronic kidney disease, with long-term current use of insulin (HCC) ([facility]) Class 2 severe obesity due to excess calories with serious comorbidity and body mass index (BMI) of 35.0 to 35.9 in adult ([facility])- Primary Type 2 diabetes mellitus with diabetic polyneuropathy, with long-term current use of insulin ([facility]) Type 2 diabetes mellitus with stage 3a chronic kidney disease, with long-term current use of insulin (HCC) ([facility]/HCC) Long-term insulin use ([facility]) Benign essential hypertension (CMS/HCC)- Primary Essential hypertension, benign JARAD (generalized anxiety disorder) ([facility]) Generalized anxiety disorder Lumbar spondylosis Lumbosacral spondylosis without myelopathy Type 2 diabetes mellitus with diabetic polyneuropathy, with long-term current use of insulin ([facility]) Type 2 diabetes mellitus with stage 3b chronic kidney disease, with long-term current use of insulin (HCC) ([facility]) Left shoulder pain, unspecified chronicity- Primary S/P arthroscopy of left shoulder documented in this encounter [facility]* Diagnosis Type 2 diabetes mellitus with diabetic polyneuropathy, with long-term current use of insulin ([facility]) Preop examination Unspecified pre-operative examination documented in this encounter [facility]* Diagnosis Type 2 diabetes mellitus with diabetic polyneuropathy, with long-term current use of insulin ([facility])- Primary Class 2 severe obesity due to excess calories with serious comorbidity and body mass index (BMI) of 35.0 to 35.9 in adult ([facility] [place] Primary Type 2 diabetes mellitus with diabetic polyneuropathy, with long-term current use of insulin ([facility]) Long-term insulin use ([facility] [place] Lumbar spondylosis- Primary Lumbosacral spondylosis without myelopathy Benign essential hypertension ([facility]) Essential hypertension, benign Bilateral leg edema Edema Class 2 severe obesity due to excess calories with serious comorbidity and body mass index (BMI) of 36.0 to 36.9 in adult ([facility] [place] Primary Type 2 diabetes mellitus with diabetic polyneuropathy, with long-term current use of insulin ([facility]) Benign essential hypertension ([facility])- Primary Essential hypertension, benign Lumbar spondylosis Lumbosacral spondylosis without myelopathy Bilateral leg edema Edema Type 2 diabetes mellitus with diabetic polyneuropathy, with long-term current use of insulin ([facility]) Hypercholesteremia ([facility]) Pure hypercholesterolemia Encounter for long-term (current) use of medications Encounter for long-term (current) use of other medications Obesity (BMI 30-39.9) Body mass index [BMI] 36.0-36.9, adult (Z68.36) JARAD (generalized anxiety disorder) ([facility])- Primary Generalized anxiety disorder Benign essential hypertension ([facility]) Essential hypertension, benign Class 2 severe obesity due to excess calories with serious comorbidity and body mass index (BMI) of 35.0 to 35.9 in adult ([facility] [place] Primary Type 2 diabetes mellitus with diabetic polyneuropathy, with long-term current use of insulin ([facility]) Long-term insulin use ([facility]) Benign essential hypertension ([facility])- Primary Essential hypertension, benign JARAD (generalized anxiety disorder) ([facility] Generalized anxiety disorder Bilateral leg edema Edema Lumbar spondylosis Lumbosacral spondylosis without myelopathy Benign essential hypertension ([facility])- Primary Essential hypertension, benign JARAD (generalized anxiety disorder) ([facility]) Generalized anxiety disorder Lumbar spondylosis Lumbosacral spondylosis without myelopathy Bilateral leg edema Edema Prostate cancer ([facility]) Malignant neoplasm of prostate Type 2 diabetes mellitus with hyperglycemia, with long-term current use of insulin ([facility]) Class 2 severe obesity due to excess calories with serious comorbidity and body mass index (BMI) of 35.0 to 35.9 in adult ([facility])- Primary Type 2 diabetes mellitus with hyperglycemia, with long-term current use of insulin ([facility]) Type 2 diabetes mellitus with diabetic polyneuropathy, with long-term current use of insulin ([facility]) Long-term insulin use ([facility]) Type 2 diabetes mellitus with stage 3a chronic kidney disease, with long-term current use of insulin ([facility]) ([facility]) Class 2 severe obesity due to excess calories with serious comorbidity and body mass index (BMI) of 35.0 to 35.9 in adult ([facility])- Primary Type 2 diabetes mellitus with diabetic polyneuropathy, with long-term current use of insulin ([facility]) Type 2 diabetes mellitus with stage 3a chronic kidney disease, with long-term current use of insulin ([facility]) ([facility]) Long-term insulin use ([facility]) Benign essential hypertension ([facility])- Primary Essential hypertension, benign JARAD (generalized anxiety disorder) ([facility]) Generalized anxiety disorder Lumbar spondylosis Lumbosacral spondylosis without myelopathy Type 2 diabetes mellitus with diabetic polyneuropathy, with long-term current use of insulin ([facility]) Type 2 diabetes mellitus with stage 3b chronic kidney disease, with long-term current use of insulin (HCC) ([facility]) Left shoulder pain, unspecified chronicity- Primary S/P arthroscopy of left shoulder S/P arthroscopy of left shoulder- Primary documented in this encounter [facility]* Diagnosis Type 2 diabetes mellitus with diabetic polyneuropathy, with long-term current use of insulin ([facility])- Primary Class 2 severe obesity due to excess calories with serious comorbidity and body mass index (BMI) of 35.0 to 35.9 in adult ([facility])- Primary Type 2 diabetes mellitus with diabetic polyneuropathy, with long-term current use of insulin ([facility]) Long-term insulin use ([facility]) Lumbar spondylosis- Primary Lumbosacral spondylosis without myelopathy Benign essential hypertension ([facility]) Essential hypertension, benign Bilateral leg edema Edema Class 2 severe obesity due to excess calories with serious comorbidity and body mass index (BMI) of 36.0 to 36.9 in adult ([facility] [place] Primary Type 2 diabetes mellitus with diabetic polyneuropathy, with long-term current use of insulin ([facility]) Benign essential hypertension ([facility])- Primary Essential hypertension, benign Lumbar spondylosis Lumbosacral spondylosis without myelopathy Bilateral leg edema Edema Type 2 diabetes mellitus with diabetic polyneuropathy, with long-term current use of insulin ([facility]) Hypercholesteremia ([facility] Pure hypercholesterolemia Encounter for long-term (current) use of medications Encounter for long-term (current) use of other medications Obesity (BMI 30-39.9) Body mass index [BMI] 36.0-36.9, adult (Z68.36) JARAD (generalized anxiety disorder) ([facility])- Primary Generalized anxiety disorder Benign essential hypertension ([facility]) Essential hypertension, benign Class 2 severe obesity due to excess calories with serious comorbidity and body mass index (BMI) of 35.0 to 35.9 in adult ([facility] [place] Primary Type 2 diabetes mellitus with diabetic polyneuropathy, with long-term current use of insulin [facility] Long-term insulin use [facility] Benign essential hypertension ([facility])- Primary Essential hypertension, benign JARAD (generalized anxiety disorder) ([facility] Generalized anxiety disorder Bilateral leg edema Edema Lumbar spondylosis Lumbosacral spondylosis without myelopathy Benign essential hypertension ([facility])- Primary Essential hypertension, benign JARAD (generalized anxiety disorder) ([facility]) Generalized anxiety disorder Lumbar spondylosis Lumbosacral spondylosis without myelopathy Bilateral leg edema Edema Prostate cancer ([facility]) Malignant neoplasm of prostate Type 2 diabetes mellitus with hyperglycemia, with long-term current use of insulin ([facility]) Class 2 severe obesity due to excess calories with serious comorbidity and body mass index (BMI) of 35.0 to 35.9 in adult ([facility] [place] Primary Type 2 diabetes mellitus with hyperglycemia, with long-term current use of insulin [facility] Type 2 diabetes mellitus with diabetic polyneuropathy, with long-term current use of insulin (CMS/HCC) Long-term insulin use ([facility]) Type 2 diabetes mellitus with stage 3a chronic kidney disease, with long-term current use of insulin (HCC) ([facility]) Class 2 severe obesity due to excess calories with serious comorbidity and body mass index (BMI) of 35.0 to 35.9 in adult ([facility])- Primary Type 2 diabetes mellitus with diabetic polyneuropathy, with long-term current use of insulin (CMS/HCC) Type 2 diabetes mellitus with stage 3a chronic kidney disease, with long-term current use of insulin (HCC) ([facility]) Long-term insulin use ([facility]) Benign essential hypertension ([facility])- Primary Essential hypertension, benign JARAD (generalized anxiety disorder) ([facility]) Generalized anxiety disorder Lumbar spondylosis Lumbosacral spondylosis without myelopathy Type 2 diabetes mellitus with diabetic polyneuropathy, with long-term current use of insulin ([facility]/) Type 2 diabetes mellitus with stage 3b chronic kidney disease, with long-term current use of insulin (HCC) ([facility]) S/P arthroscopy of left shoulder- Primary documented in this encounter [facility] HealthcareEvaluation note* Diagnosis Type 2 diabetes mellitus with diabetic polyneuropathy, with long-term current use of insulin ([facility]/HCC)- Primary Class 2 severe obesity due to excess calories with serious comorbidity and body mass index (BMI) of 35.0 to 35.9 in adult ([facility])- Primary Type 2 diabetes mellitus with diabetic polyneuropathy, with long-term current use of insulin ([facility]) Long-term insulin use ([facility]) Lumbar spondylosis- Primary Lumbosacral spondylosis without myelopathy Benign essential hypertension ([facility]/HCC) Essential hypertension, benign Bilateral leg edema Edema Class 2 severe obesity due to excess calories with serious comorbidity and body mass index (BMI) of 36.0 to 36.9 in adult ([facility])- Primary Type 2 diabetes mellitus with diabetic polyneuropathy, with long-term current use of insulin ([facility]/HCC) Benign essential hypertension (CMS/HCC)- Primary Essential hypertension, benign Lumbar spondylosis Lumbosacral spondylosis without myelopathy Bilateral leg edema Edema Type 2 diabetes mellitus with diabetic polyneuropathy, with long-term current use of insulin ([facility]) Hypercholesteremia ([facility]) Pure hypercholesterolemia Encounter for long-term (current) use of medications Encounter for long-term (current) use of other medications Obesity (BMI 30-39.9) Body mass index [BMI] 36.0-36.9, adult (Z68.36) JARAD (generalized anxiety disorder) ([facility])- Primary Generalized anxiety disorder Benign essential hypertension ([facility]) Essential hypertension, benign Class 2 severe obesity due to excess calories with serious comorbidity and body mass index (BMI) of 35.0 to 35.9 in adult ([facility])- Primary Type 2 diabetes mellitus with diabetic polyneuropathy, with long-term current use of insulin ([facility]) Long-term insulin use ([facility]) Benign essential hypertension ([facility])- Primary Essential hypertension, benign JARAD (generalized anxiety disorder) ([facility]) Generalized anxiety disorder Bilateral leg edema Edema Lumbar spondylosis Lumbosacral spondylosis without myelopathy Benign essential hypertension ([facility])- Primary Essential hypertension, benign JARAD (generalized anxiety disorder) ([facility]) Generalized anxiety disorder Lumbar spondylosis Lumbosacral spondylosis without myelopathy Bilateral leg edema Edema Prostate cancer ([facility]) Malignant neoplasm of prostate Type 2 diabetes mellitus with hyperglycemia, with long-term current use of insulin ([facility]) Class 2 severe obesity due to excess calories with serious comorbidity and body mass index (BMI) of 35.0 to 35.9 in adult ([facility])- Primary Type 2 diabetes mellitus with hyperglycemia, with long-term current use of insulin ([facility]) Type 2 diabetes mellitus with diabetic polyneuropathy, with long-term current use of insulin ([facility]) Long-term insulin use ([facility]) Type 2 diabetes mellitus with stage 3a chronic kidney disease, with long-term current use of insulin ([facility]) ([facility]) Class 2 severe obesity due to excess calories with serious comorbidity and body mass index (BMI) of 35.0 to 35.9 in adult ([facility])- Primary Type 2 diabetes mellitus with diabetic polyneuropathy, with long-term current use of insulin ([facility]) Type 2 diabetes mellitus with stage 3a chronic kidney disease, with long-term current use of insulin (HCC) ([facility]) Long[facility]term insulin use ([facility]) Benign essential hypertension ([facility])- Primary Essential hypertension, benign JARAD (generalized anxiety disorder) ([facility]) Generalized anxiety disorder Lumbar spondylosis Lumbosacral spondylosis without myelopathy Type 2 diabetes mellitus with diabetic polyneuropathy, with long-term current use of insulin ([facility]) Type 2 diabetes mellitus with stage 3b chronic kidney disease, with long-term current use of insulin ([facility]) ([facility]) Left shoulder pain, unspecified chronicity- Primary S/P arthroscopy of left shoulder documented in this encounter [facility] HealthcareEvaluation note* Diagnosis Type 2 diabetes mellitus with diabetic polyneuropathy, with long-term current use of insulin ([facility])- Primary Class 2 severe obesity due to excess calories with serious comorbidity and body mass index (BMI) of 35.0 to 35.9 in adult ([facility])- Primary Type 2 diabetes mellitus with diabetic polyneuropathy, with long-term current use of insulin ([facility]) Long-term insulin use ([facility]) Lumbar spondylosis- Primary Lumbosacral spondylosis without myelopathy Benign essential hypertension ([facility]) Essential hypertension, benign Bilateral leg edema Edema Class 2 severe obesity due to excess calories with serious comorbidity and body mass index (BMI) of 36.0 to 36.9 in adult ([facility])- Primary Type 2 diabetes mellitus with diabetic polyneuropathy, with long-term current use of insulin ([facility]) Benign essential hypertension ([facility])- Primary Essential hypertension, benign Lumbar spondylosis Lumbosacral spondylosis without myelopathy Bilateral leg edema Edema Type 2 diabetes mellitus with diabetic polyneuropathy, with long-term current use of insulin ([facility]) Hypercholesteremia ([facility]) Pure hypercholesterolemia Encounter for long-term (current) use of medications Encounter for long-term (current) use of other medications Obesity (BMI 30-39.9) Body mass index [BMI] 36.0-36.9, adult (Z68.36) JARAD (generalized anxiety disorder) ([facility])- Primary Generalized anxiety disorder Benign essential hypertension ([facility]) Essential hypertension, benign Class 2 severe obesity due to excess calories with serious comorbidity and body mass index (BMI) of 35.0 to 35.9 in adult ([facility])- Primary Type 2 diabetes mellitus with diabetic polyneuropathy, with long-term current use of insulin ([facility]) Long-term insulin use ([facility]) Benign essential hypertension (CMS/HCC)- Primary Essential hypertension, benign JARAD (generalized anxiety disorder) ([facility]/HCC) Generalized anxiety disorder Bilateral leg edema Edema Lumbar spondylosis Lumbosacral spondylosis without myelopathy Benign essential hypertension (CMS/HCC)- Primary Essential hypertension, benign JARAD (generalized anxiety disorder) ([facility]/HCC) Generalized anxiety disorder Lumbar spondylosis Lumbosacral spondylosis without myelopathy Bilateral leg edema Edema Prostate cancer ([facility]) Malignant neoplasm of prostate Type 2 diabetes mellitus with hyperglycemia, with long-term current use of insulin ([facility]) Class 2 severe obesity due to excess calories with serious comorbidity and body mass index (BMI) of 35.0 to 35.9 in adult ([facility])- Primary Type 2 diabetes mellitus with hyperglycemia, with long-term current use of insulin ([facility]) Type 2 diabetes mellitus with diabetic polyneuropathy, with long-term current use of insulin ([facility]) Long-term insulin use ([facility]) Type 2 diabetes mellitus with stage 3a chronic kidney disease, with long-term current use of insulin (HCC) ([facility]) Class 2 severe obesity due to excess calories with serious comorbidity and body mass index (BMI) of 35.0 to 35.9 in adult ([facility])- Primary Type 2 diabetes mellitus with diabetic polyneuropathy, with long-term current use of insulin ([facility]) Type 2 diabetes mellitus with stage 3a chronic kidney disease, with long-term current use of insulin (HCC) ([facility]) Long-term insulin use ([facility]) Benign essential hypertension ([facility])- Primary Essential hypertension, benign JARAD (generalized anxiety disorder) ([facility]) Generalized anxiety disorder Lumbar spondylosis Lumbosacral spondylosis without myelopathy Type 2 diabetes mellitus with diabetic polyneuropathy, with long-term current use of insulin ([facility]) Type 2 diabetes mellitus with stage 3b chronic kidney disease, with long-term current use of insulin (HCC) ([facility]) Left shoulder pain, unspecified chronicity- Primary S/P arthroscopy of left shoulder documented in this encounter [facility] HealthcareEvaluation note* Diagnosis Type 2 diabetes mellitus with diabetic polyneuropathy, with long-term current use of insulin ([facility])- Primary Class 2 severe obesity due to excess calories with serious comorbidity and body mass index (BMI) of 35.0 to 35.9 in adult ([facility] [place] Primary Type 2 diabetes mellitus with diabetic polyneuropathy, with long-term current use of insulin ([facility] [place] Long-term insulin use ([facility]) Lumbar spondylosis- Primary Lumbosacral spondylosis without myelopathy Benign essential hypertension ([facility]) Essential hypertension, benign Bilateral leg edema Edema Class 2 severe obesity due to excess calories with serious comorbidity and body mass index (BMI) of 36.0 to 36.9 in adult ([facility] [place] Primary Type 2 diabetes mellitus with diabetic polyneuropathy, with long-term current use of insulin ([facility] [place]) Benign essential hypertension ([facility] [place] Primary Essential hypertension, benign Lumbar spondylosis Lumbosacral spondylosis without myelopathy Bilateral leg edema Edema Type 2 diabetes mellitus with diabetic polyneuropathy, with long-term current use of insulin ([facility] [place]) Hypercholesteremia ([facility]) Pure hypercholesterolemia Encounter for long-term (current) use of medications Encounter for long-term (current) use of other medications Obesity (BMI 30-39.9) Body mass index [BMI] 36.0-36.9, adult (Z68.36) JARAD (generalized anxiety disorder) ([facility] [place] Primary Generalized anxiety disorder Benign essential hypertension [facility] Essential hypertension, benign Class 2 severe obesity due to excess calories with serious comorbidity and body mass index (BMI) of 35.0 to 35.9 in adult ([facility] [place] Primary Type 2 diabetes mellitus with diabetic polyneuropathy, with long-term current use of insulin ([facility] Long-term insulin use ([facility]) Benign essential hypertension ([facility] [place] Primary Essential hypertension, benign JARAD (generalized anxiety disorder) ([facility] [place]) Generalized anxiety disorder Bilateral leg edema Edema Lumbar spondylosis Lumbosacral spondylosis without myelopathy Benign essential hypertension ([facility])- Primary Essential hypertension, benign JARAD (generalized anxiety disorder) ([facility]) Generalized anxiety disorder Lumbar spondylosis Lumbosacral spondylosis without myelopathy Bilateral leg edema Edema Prostate cancer ([facility] [place]) Malignant neoplasm of prostate Type 2 diabetes mellitus with hyperglycemia, with long-term current use of insulin ([facility] [place]) Class 2 severe obesity due to excess calories with serious comorbidity and body mass index (BMI) of 35.0 to 35.9 in adult ([facility] [place] Primary Type 2 diabetes mellitus with hyperglycemia, with long-term current use of insulin ([facility]) Type 2 diabetes mellitus with diabetic polyneuropathy, with long-term current use of insulin ([facility]) Long-term insulin use ([facility]) Type 2 diabetes mellitus with stage 3a chronic kidney disease, with long-term current use of insulin (HCC) ([facility]) Class 2 severe obesity due to excess calories with serious comorbidity and body mass index (BMI) of 35.0 to 35.9 in adult ([facility])- Primary Type 2 diabetes mellitus with diabetic polyneuropathy, with long-term current use of insulin ([facility]) Type 2 diabetes mellitus with stage 3a chronic kidney disease, with long-term current use of insulin ([facility]) ([facility]) Long-term insulin use ([facility]) Benign essential hypertension ([facility])- Primary Essential hypertension, benign JARAD (generalized anxiety disorder) ([facility]) Generalized anxiety disorder Lumbar spondylosis Lumbosacral spondylosis without myelopathy Type 2 diabetes mellitus with diabetic polyneuropathy, with long-term current use of insulin ([facility]) Type 2 diabetes mellitus with stage 3b chronic kidney disease, with long-term current use of insulin ([facility]) ([facility]) Left shoulder pain, unspecified chronicity- Primary S/P arthroscopy of left shoulder documented in this encounter [facility] HealthcareEvaluation note* Diagnosis Type 2 diabetes mellitus with diabetic polyneuropathy, with long-term current use of insulin ([facility])- Primary Class 2 severe obesity due to excess calories with serious comorbidity and body mass index (BMI) of 35.0 to 35.9 in adult ([facility])- Primary Type 2 diabetes mellitus with diabetic polyneuropathy, with long-term current use of insulin ([facility]) Long-term insulin use ([facility]) Lumbar spondylosis- Primary Lumbosacral spondylosis without myelopathy Benign essential hypertension ([facility]) Essential hypertension, benign Bilateral leg edema Edema Class 2 severe obesity due to excess calories with serious comorbidity and body mass index (BMI) of 36.0 to 36.9 in adult ([facility])- Primary Type 2 diabetes mellitus with diabetic polyneuropathy, with long-term current use of insulin ([facility]) Benign essential hypertension ([facility])- Primary Essential hypertension, benign Lumbar spondylosis Lumbosacral spondylosis without myelopathy Bilateral leg edema Edema Type 2 diabetes mellitus with diabetic polyneuropathy, with long-term current use of insulin (CMS/[facility]) Hypercholesteremia ([facility]) Pure hypercholesterolemia Encounter for long-term (current) use of medications Encounter for long-term (current) use of other medications Obesity (BMI 30-39.9) Body mass index [BMI] 36.0-36.9, adult (Z68.36) JARAD (generalized anxiety disorder) (CMS/[facility])- Primary Generalized anxiety disorder Benign essential hypertension ([facility]) Essential hypertension, benign Class 2 severe obesity due to excess calories with serious comorbidity and body mass index (BMI) of 35.0 to 35.9 in adult ([facility])- Primary Type 2 diabetes mellitus with diabetic polyneuropathy, with long-term current use of insulin ([facility]) Long-term insulin use ([facility]) Benign essential hypertension (CMS/HCC)- Primary Essential hypertension, benign JARAD (generalized anxiety disorder) (CMS/HCC) Generalized anxiety disorder Bilateral leg edema Edema Lumbar spondylosis Lumbosacral spondylosis without myelopathy Benign essential hypertension (CMS/HCC)- Primary Essential hypertension, benign JARAD (generalized anxiety disorder) (CMS/[facility]) Generalized anxiety disorder Lumbar spondylosis Lumbosacral spondylosis without myelopathy Bilateral leg edema Edema Prostate cancer ([facility]) Malignant neoplasm of prostate Type 2 diabetes mellitus with hyperglycemia, with long-term current use of insulin ([facility]) Class 2 severe obesity due to excess calories with serious comorbidity and body mass index (BMI) of 35.0 to 35.9 in adult ([facility])- Primary Type 2 diabetes mellitus with hyperglycemia, with long-term current use of insulin ([facility]) Type 2 diabetes mellitus with diabetic polyneuropathy, with long-term current use of insulin ([facility]) Long-term insulin use ([facility]) Type 2 diabetes mellitus with stage 3a chronic kidney disease, with long-term current use of insulin ([facility]) ([facility]) Class 2 severe obesity due to excess calories with serious comorbidity and body mass index (BMI) of 35.0 to 35.9 in adult ([facility] [facility])- Primary Type 2 diabetes mellitus with diabetic polyneuropathy, with long-term current use of insulin ([facility]) Type 2 diabetes mellitus with stage 3a chronic kidney disease, with long-term current use of insulin ([facility]) ([facility]) Long-term insulin use ([facility]) Benign essential hypertension ([facility])- Primary Essential hypertension, benign JARAD (generalized anxiety disorder) ([facility]) Generalized anxiety disorder Lumbar spondylosis Lumbosacral spondylosis without myelopathy Type 2 diabetes mellitus with diabetic polyneuropathy, with long-term current use of insulin ([facility]) Type 2 diabetes mellitus with stage 3b chronic kidney disease, with long-term current use of insulin ([facility]) ([facility]) S/P arthroscopy of left shoulder- Primary documented in this encounter [facility] HealthcareEvaluation note* Diagnosis Type 2 diabetes mellitus with diabetic polyneuropathy, with long-term current use of insulin ([facility])- Primary Class 2 severe obesity due to excess calories with serious comorbidity and body mass index (BMI) of 35.0 to 35.9 in adult ([facility] Primary Type 2 diabetes mellitus with diabetic polyneuropathy, with long-term current use of insulin ([facility]) Long-term insulin use ([facility] Lumbar spondylosis- Primary Lumbosacral spondylosis without myelopathy Benign essential hypertension ([facility]) Essential hypertension, benign Bilateral leg edema Edema Class 2 severe obesity due to excess calories with serious comorbidity and body mass index (BMI) of 36.0 to 36.9 in adult ([facility] Primary Type 2 diabetes mellitus with diabetic polyneuropathy, with long-term current use of insulin ([facility]) Benign essential hypertension ([facility])- Primary Essential hypertension, benign Lumbar spondylosis Lumbosacral spondylosis without myelopathy Bilateral leg edema Edema Type 2 diabetes mellitus with diabetic polyneuropathy, with long-term current use of insulin ([facility] Hypercholesteremia ([facility]) Pure hypercholesterolemia Encounter for long-term (current) use of medications Encounter for long-term (current) use of other medications Obesity (BMI 30-39.9) Body mass index [BMI] 36.0-36.9, adult (Z68.36) JARAD (generalized anxiety disorder) ([facility])- Primary Generalized anxiety disorder Benign essential hypertension ([facility]) Essential hypertension, benign Class 2 severe obesity due to excess calories with serious comorbidity and body mass index (BMI) of 35.0 to 35.9 in adult ([facility] Primary Type 2 diabetes mellitus with diabetic [...] hyperglycemia, with long-term current use of insulin ([facility]) Class 2 severe obesity due to excess calories with serious comorbidity and body mass index (BMI) of 35.0 to 35.9 in adult ([facility])- Primary Type 2 diabetes mellitus with hyperglycemia, with long-term current use of insulin (CMS/HCC) Type 2 diabetes mellitus with diabetic polyneuropathy, with long-term current use of insulin ([facility]/HCC) Long-term insulin use ([facility]) Type 2 diabetes mellitus with stage 3a chronic kidney disease, with long-term current use of insulin (HCC) ([facility]) Class 2 severe obesity due to excess calories with serious comorbidity and body mass index (BMI) of 35.0 to 35.9 in adult ([facility])- Primary Type 2 diabetes mellitus with diabetic polyneuropathy, with long-term current use of insulin (CMS/HCC) Type 2 diabetes mellitus with stage 3a chronic kidney disease, with long-term current use of insulin (HCC) ([facility]/HCC) Long-term insulin use ([facility]) Benign essential hypertension (CMS/HCC)- Primary Essential hypertension, benign JARAD (generalized anxiety disorder) (CMS/HCC) Generalized anxiety disorder Lumbar spondylosis Lumbosacral spondylosis without myelopathy Type 2 diabetes mellitus with diabetic polyneuropathy, with long-term current use of insulin ([facility]/HCC) Type 2 diabetes mellitus with stage 3b chronic kidney disease, with long-term current use of insulin (HCC) ([facility]/HCC) Left shoulder pain, unspecified chronicity- Primary S/P arthroscopy of left shoulder documented in this encounter [facility] HealthcareEvaluation note* Diagnosis Type 2 diabetes mellitus with diabetic polyneuropathy, with long-term current use of insulin ([facility]/HCC)- Primary Class 2 severe obesity due to excess calories with serious comorbidity and body mass index (BMI) of 35.0 to 35.9 in adult ([facility])- Primary Type 2 diabetes mellitus with diabetic polyneuropathy, with long-term current use of insulin ([facility]) Long-term insulin use ([facility]) Lumbar spondylosis- Primary Lumbosacral spondylosis without myelopathy Benign essential hypertension ([facility]) Essential hypertension, benign Bilateral leg edema Edema Class 2 severe obesity due to excess calories with serious comorbidity and body mass index (BMI) of 36.0 to 36.9 in adult ([facility] Primary Type 2 diabetes mellitus with diabetic polyneuropathy, with long-term current use of insulin ([facility]) Benign essential hypertension ([facility])- Primary Essential hypertension, benign Lumbar spondylosis Lumbosacral spondylosis without myelopathy Bilateral leg edema Edema Type 2 diabetes mellitus with diabetic polyneuropathy, with long-term current use of insulin [facility] Hypercholesteremia ([facility] Pure hypercholesterolemia Encounter for long-term (current) use of medications Encounter for long-term (current) use of other medications Obesity (BMI 30-39.9) Body mass index [BMI] 36.0-36.9, adult (Z68.36) JARAD (generalized anxiety disorder) ([facility])- Primary Generalized anxiety disorder Benign essential hypertension ([facility]) Essential hypertension, benign Class 2 severe obesity due to excess calories with serious comorbidity and body mass index (BMI) of 35.0 to 35.9 in adult ([facility] Primary Type 2 diabetes mellitus with diabetic polyneuropathy, with long-term current use of insulin [facility] Long-term insulin use [facility] Benign essential hypertension ([facility])- Primary Essential hypertension, benign JARAD (generalized anxiety disorder) ([facility]) Generalized anxiety disorder Bilateral leg edema Edema Lumbar spondylosis Lumbosacral spondylosis without myelopathy Benign essential hypertension ([facility])- Primary Essential hypertension, benign JARAD (generalized anxiety disorder) ([facility]) Generalized anxiety disorder Lumbar spondylosis Lumbosacral spondylosis without myelopathy Bilateral leg edema Edema Prostate cancer ([facility]) Malignant neoplasm of prostate Type 2 diabetes mellitus with hyperglycemia, with long-term current use of insulin ([facility]) Class 2 severe obesity due to excess calories with serious comorbidity and body mass index (BMI) of 35.0 to 35.9 in adult ([facility])- Primary Type 2 diabetes mellitus with hyperglycemia, with long-term current use of insulin ([facility]) Type 2 diabetes mellitus with diabetic polyneuropathy, with long-term current use of insulin ([facility]) Long-term insulin use ([facility]) Type 2 diabetes mellitus with stage 3a chronic kidney disease, with long-term current use of insulin ([facility]) ([facility]) Class 2 severe obesity due to excess calories with serious comorbidity and body mass index (BMI) of 35.0 to 35.9 in adult ([facility])- Primary Type 2 diabetes mellitus with diabetic polyneuropathy, with long-term current use of insulin ([facility]) Type 2 diabetes mellitus with stage 3a chronic kidney disease, with long-term current use of insulin ([facility]) ([facility]) Long-term insulin use ([facility]) Benign essential hypertension ([facility])- Primary Essential hypertension, benign JARAD (generalized anxiety disorder) ([facility]) Generalized anxiety disorder Lumbar spondylosis Lumbosacral spondylosis without myelopathy Type 2 diabetes mellitus with diabetic polyneuropathy, with long-term current use of insulin ([facility]) Type 2 diabetes mellitus with stage 3b chronic kidney disease, with long-term current use of insulin ([facility]) ([facility]) Left shoulder pain, unspecified chronicity- Primary S/P arthroscopy of left shoulder documented in this encounter [facility] HealthcareEvaluation note* Diagnosis Type 2 diabetes mellitus with diabetic polyneuropathy, with long-term current use of insulin ([facility])- Primary Class 2 severe obesity due to excess calories with serious comorbidity and body mass index (BMI) of 35.0 to 35.9 in adult ([facility])- Primary Type 2 diabetes mellitus with diabetic polyneuropathy, with long-term current use of insulin ([facility]) Long-term insulin use ([facility]) Lumbar spondylosis- Primary Lumbosacral spondylosis without myelopathy Benign essential hypertension ([facility]) Essential hypertension, benign Bilateral leg edema Edema Class 2 severe obesity due to excess calories with serious comorbidity and body mass index (BMI) of 36.0 to 36.9 in adult ([facility] Primary Type 2 diabetes mellitus with diabetic polyneuropathy, with long-term current use of insulin ([facility]) Benign essential hypertension ([facility])- Primary Essential hypertension, benign Lumbar spondylosis Lumbosacral spondylosis without myelopathy Bilateral leg edema Edema Type 2 diabetes mellitus with diabetic polyneuropathy, with long-term current use of insulin ([facility]) Hypercholesteremia ([facility]) Pure hypercholesterolemia Encounter for long-term (current) use of medications Encounter for long-term (current) use of other medications Obesity (BMI 30-39.9) Body mass index [BMI] 36.0-36.9, adult (Z68.36) JARAD (generalized anxiety disorder) ([facility])- Primary Generalized anxiety disorder Benign essential hypertension ([facility]) Essential hypertension, benign Class 2 severe obesity due to excess calories with serious comorbidity and body mass index (BMI) of 35.0 to 35.9 in adult ([facility] Primary Type 2 diabetes mellitus with diabetic polyneuropathy, with long-term current use of insulin ([facility]) Long-term insulin use ([facility]) Benign essential hypertension ([facility])- Primary Essential hypertension, benign JARAD (generalized anxiety disorder) ([facility]) Generalized anxiety disorder Bilateral leg edema Edema Lumbar spondylosis Lumbosacral spondylosis without myelopathy Benign essential hypertension ([facility])- Primary Essential hypertension, benign JARAD (generalized anxiety disorder) ([facility]) Generalized anxiety disorder Lumbar spondylosis Lumbosacral spondylosis without myelopathy Bilateral leg edema Edema Prostate cancer ([facility]) Malignant neoplasm of prostate Type 2 diabetes mellitus with hyperglycemia, with long-term current use of insulin ([facility]) Class 2 severe obesity due to excess calories with serious comorbidity and body mass index (BMI) of 35.0 to 35.9 in adult ([facility] Primary Type 2 diabetes mellitus with hyperglycemia, with long-term current use of insulin ([facility]) Type 2 diabetes mellitus with diabetic polyneuropathy, with long-term current use of insulin ([facility]) Long-term insulin use ([facility]) Type 2 diabetes mellitus with stage 3a chronic kidney disease, with long-term current use of insulin ([facility]) ([facility]) Class 2 severe obesity due to excess calories with serious comorbidity and body mass index (BMI) of 35.0 to 35.9 in adult ([facility] Primary Type 2 diabetes mellitus with diabetic polyneuropathy, with long-term current use of insulin ([facility]) Type 2 diabetes mellitus with stage 3a chronic kidney disease, with long-term current use of insulin (HCC) ([facility]) Long-term insulin use ([facility]) Benign essential hypertension ([facility])- Primary Essential hypertension, benign JARAD (generalized anxiety disorder) ([facility]) Generalized anxiety disorder Lumbar spondylosis Lumbosacral spondylosis without myelopathy Type 2 diabetes mellitus with diabetic polyneuropathy, with long-term current use of insulin ([facility]) Type 2 diabetes mellitus with stage 3b chronic kidney disease, with long-term current use of insulin ([facility]) ([facility]) S/P arthroscopy of left shoulder- Primary documented in this encounter [facility] HealthcareEvaluation note* Diagnosis Type 2 diabetes mellitus with diabetic polyneuropathy, with long-term current use of insulin ([facility])- Primary Class 2 severe obesity due to excess calories with serious comorbidity and body mass index (BMI) of 35.0 to 35.9 in adult ([facility])- Primary Type 2 diabetes mellitus with diabetic polyneuropathy, with long-term current use of insulin ([facility]) Long-term insulin use ([facility]) Lumbar spondylosis- Primary Lumbosacral spondylosis without myelopathy Benign essential hypertension ([facility]) Essential hypertension, benign Bilateral leg edema Edema Class 2 severe obesity due to excess calories with serious comorbidity and body mass index (BMI) of 36.0 to 36.9 in adult ([facility])- Primary Type 2 diabetes mellitus with diabetic polyneuropathy, with long-term current use of insulin ([facility]) Benign essential hypertension ([facility])- Primary Essential hypertension, benign Lumbar spondylosis Lumbosacral spondylosis without myelopathy Bilateral leg edema Edema Type 2 diabetes mellitus with diabetic polyneuropathy, with long-term current use of insulin ([facility]) Hypercholesteremia ([facility]) Pure hypercholesterolemia Encounter for long-term (current) use of medications Encounter for long-term (current) use of other medications Obesity (BMI 30-39.9) Body mass index [BMI] 36.0-36.9, adult (Z68.36) JARAD (generalized anxiety disorder) ([facility])- Primary Generalized anxiety disorder Benign essential hypertension ([facility]) Essential hypertension, benign Class 2 severe obesity due to excess calories with serious comorbidity and body mass index (BMI) of 35.0 to 35.9 in adult ([facility])- Primary Type 2 diabetes mellitus with diabetic polyneuropathy, with long-term current use of insulin ([facility]/HCC) Long-term insulin use ([facility]) Benign essential hypertension ([facility]/HCC)- Primary Essential hypertension, benign JARAD (generalized anxiety disorder) ([facility]) Generalized anxiety disorder Bilateral leg edema Edema Lumbar spondylosis Lumbosacral spondylosis without myelopathy Benign essential hypertension (CMS/HCC)- Primary Essential hypertension, benign JARAD (generalized anxiety disorder) ([facility]) Generalized anxiety disorder Lumbar spondylosis Lumbosacral spondylosis without myelopathy Bilateral leg edema Edema Prostate cancer ([facility]) Malignant neoplasm of prostate Type 2 diabetes mellitus with hyperglycemia, with long-term current use of insulin ([facility]) Class 2 severe obesity due to excess calories with serious comorbidity and body mass index (BMI) of 35.0 to 35.9 in adult ([facility])- Primary Type 2 diabetes mellitus with hyperglycemia, with long-term current use of insulin ([facility]) Type 2 diabetes mellitus with diabetic polyneuropathy, with long-term current use of insulin ([facility]) Long-term insulin use ([facility]) Type 2 diabetes mellitus with stage 3a chronic kidney disease, with long-term current use of insulin (HCC) ([facility]) Class 2 severe obesity due to excess calories with serious comorbidity and body mass index (BMI) of 35.0 to 35.9 in adult ([facility])- Primary Type 2 diabetes mellitus with diabetic polyneuropathy, with long-term current use of insulin ([facility]) Type 2 diabetes mellitus with stage 3a chronic kidney disease, with long-term current use of insulin (HCC) ([facility]) Long-term insulin use ([facility]) Benign essential hypertension ([facility])- Primary Essential hypertension, benign JARAD (generalized anxiety disorder) ([facility]) Generalized anxiety disorder Lumbar spondylosis Lumbosacral spondylosis without myelopathy Type 2 diabetes mellitus with diabetic polyneuropathy, with long-term current use of insulin ([facility]) Type 2 diabetes mellitus with stage 3b chronic kidney disease, with long-term current use of insulin (HCC) ([facility]) Class 2 severe obesity due to excess calories with serious comorbidity and body mass index (BMI) of 37.0 to 37.9 in adult ([facility])- Primary Type 2 diabetes mellitus with diabetic polyneuropathy, with long-term current use of insulin ([facility]) Type 2 diabetes mellitus with stage 3b chronic kidney disease, with long-term current use of insulin (HCC) ([facility]) Type 2 diabetes mellitus with hyperglycemia, with long-term current use of insulin (CMS/[facility]) documented in this encounter [facility]* Diagnosis Obstructive sleep apnea syndrome- Primary Obstructive sleep apnea (adult) (pediatric) [facility] Obstructive sleep apnea syndrome Obstructive sleep apnea (adult) (pediatric) CSA (central sleep apnea) Unspecified sleep ap[facility] Personal history of tobacco use, presenting hazards to health- Primary Obstructive sleep apnea syndrome Obstructive sleep apnea (adult) (pediatric) CSA (central sleep apnea) Unspecified sleep apnea [facility] Diagnosis Encounter for other preprocedural examination [facility] Diagnosis Obstructive sleep apnea syndrome- Primary Obstructive sleep apnea (adult) (pediatric) Personal history of tobacco use, presenting hazards to health [facility] Author Kike Bernal [facility] July 24, 2022 1:05pm Note Date/Time July 24, 2022 1 :05pm [facility] [address] [place] [address] Gastroenterology H&P Signed Patient: Milad Seymour MR#: [id number] : 1955 Acct:[id number] Age/Sex: 66 / M Adm Date: 3 Loc: Room: Type: [facility] Attending Dr: Kike Bernal MD Copies [...] signed by Kike Bernal MD> 07/24/22 1305 [facility] Work Phone: History and physical note Author Kike Bernal [facility] April 27, 2023 11:41am Note Date/Time April 27, 2023 11:41am [facility] [address] [place] [address] Gastroenterology H&P Signed Patient: Milad Seymour MR#: [id number] : 1955 Acct:[id number] Age/Sex: 67 / M Adm Date: 3 Loc: Room: Type: [facility] Attending Dr: Kike Bernal MD Copies [...] signed by Kike Bernal MD> 04/27/23 1141 [facility] Work Phone: History general Narrative - [...] Hospitalization History none in the last year [facility] Hospital course Narrative No data available for this section [facility] Discharge instructions Additional Instructions DISCHARGE INSTRUCTIONS [...] NOT operate machinery such as power tools, [employer] mowers, snow blowers, sewing machines, etc. for [...] problems. -Follow up with PCP. -Office number [phone]. [facility] Work Phone: Hospital Discharge instructions No data available for this section [facility] Discharge instructions Additional Instructions DISCHARGE INSTRUCTIONS [...] in the office as scheduled -Office number [phone]. [facility] Work Phone: InstructionsNot on filedocumented in this encounter [facility] filed[facility] in this encounter [facility] filedocumented in this encounter [facility] No data available for this section [facility] reason for visit Narrative* Consultation (Routine) - Authorized Specialty Diagnoses / Procedures Referred By Contac t Referred To Contact Physical Therapy Diagnoses S/P arthroscopy of left shoulder Procedures [place] OFFICE/OUTPATIENT NEW [facility] Rebecca Dias PA [address] [address] Phone: tel: fax: Alma Berkowitz, PT Referral ID Status Reason Start Date Expiration Date Visits Requested Visits Authorized [id number] Authorized Consult and Treat 05/13/2024 08/10/2024 12 12 [facility] N[facility] Consultation (Routine) - Closed Specialty Diagnoses / Procedures Referred By Contac t Referred To Contact Physical Therapy Diagnoses S/P arthroscopy of left shoulder Procedures [place] OFFICE/OUTPATIENT NEW [facility] Rebecca Dias PA 112 [facility] [address] [place] [address] Phone: tel: fax: Alma Berkowitz, PT Referral ID Status Reason Start Date Expiration Date V isits Requested Visits Authorized [id number] Closed Consult and Treat 05/13/2024 08/10/2024 12 12 [facility] N[facility]ative* Rehabilitation - Outpatient (Routine) - Authorized Specialty Diagnoses / Procedures Referred By Contac t Referred To Contact Physical Therapy Diagnoses S/P arthroscopy of left shoulder Procedures [place] THER PX 1/> AREAS EACH 15 MIN NEUROMUSC REEDUCA [place] THERAPEUTIC PX 1/> AREAS EACH 15 MIN EXERCISES [place] OFFICE/OUTPATIENT NEW HIGH [facility] 60 MINUTES PHYS/OCC THERAPY SS Rebecca Dias PA [address] [address] Phone: tel: fax: Alma Berkowitz, PT Referral ID Status Reason Start Date Expiration Date V isits Requested Visits Authorized [id number] Authorized 07/01/2024 09/28/2024 12 12 [facility] Summary Purpose Family History No Family History [...] Directives No October 11, 2 018 1:12pm Advance Directive Response Recorded Date/ Time Advance Directives No October 11, 2 018 2:12pm Date Activated Date Inactivated Comments 12/20/2018 5:21 AM 12/23/2018 4:36 PM Latest Code Status on File Code Status Date Activated Date Inactivated Comments Full Code 12/20/2018 5:21 AM 12/23/2018 4:36 PM Date Activated Date Inactivated Comments 12/20/2018 5:21 AM 12/23/2018 4:36 PM Latest [...] Diarrhea GERD (gastroesophageal reflux disease) Chief Complaint Admit Date 3 month follow up-diarrhea/constipation July 30, 2024 2:05pm Chief Complaint Admit Date 3 month follow up-diarrhea/constipation July 30, 2024 2:05pm R19.8 July 30, 2024 2:51pm Reason for Visit Admit Date GERD (gastroesophageal reflux disease) F ebruary 2024 2:05pm IBS (irritable bowel syndrome) July 30, 2024 2:05pm Reason for Referral Specialty Diagnoses / Procedures Referred By Anabel salinas Referred To Contact Diagnoses Obstructive sleep apnea syndrome CSA (central sleep apnea) Procedures Polysomnography 4 or more parameters with PAP titration Gregoria Ralph, MASTER GLAZIER-WE[employer] CONTENT DIRECTOR [address] [facility], [address] [place] [phone] Referral ID Status Reason Start Date Expiration Date V isits Requested Visits Authorized [id number] Pending Review 08/15/2023 08/14/2024 1 1 Specialty Diagnoses / Procedures Referred By Anabel salinas Referred To Contact Diagnoses Obstructive sleep apnea syndrome CSA (central sleep apnea) Procedures Echo complete W/O contrast Gregoria Ralph MASTER GLAZIER-WEB CONTENT DIRECTOR [address] [facility], [address] [place] [address] [facility] [address] [place] [address] Phone: [phone] Referral ID Status Reason Start Date Expiration Date V isits Requested Visits Authorized [id number] Authorized 08/15/2023 11/12/2023 1 1 Specialty Diagnoses / Procedures Referred By Anabel salinas Referred To Contact Radiology Diagnoses Personal history of tobacco use, presenting hazards to health Procedures CT low dose lung screenin (3mo 6mo follow-up) Gregoria Ralph MASTER GLAZIER-WEB CONTENT DIRECTOR [address] [facility], [address] [address] [place] [address] [place] [address] Phone: [phone] Referral ID Status Reason Start Date Expiration Date V isits Requested Visits Authorized [id number] Authorized 08/16/2023 11/13/2023 1 1 Additional Source Comments (unrecognized sect ion and content) No Status Records FoundNo Status Records FoundNo Status Records FoundNo Status Records FoundNo Status Records FoundNo Status Records FoundNo Status Records FoundNo Status Records FoundNo Status Records Found INFORMATION SOURCE (unrecogn ized section and content) DATE CREATED AUTHOR 08/06/2021 [facility] DATE CREATED AUTHOR AUTHOR'S ORGANIZ ATION 10/24/2022 [facility] DATE CREATED AUTHOR AUTHOR'S ORGANIZ ATION 12/15/2023 [facility] DATE CREATED AUTHOR AUTHOR'S ORGANIZ ATION 02/05/2024 [facility] DATE CREATED AUTHOR AUTHOR'S ORGANIZ ATION 02/26/2024 [facility] DATE CREATED AUTHOR AUTHOR'S ORGANIZ ATION 03/19/2024 [facility] DATE CREATED AUTHOR AUTHOR'S ORGANIZ ATION 08/01/2024 [facility] DATE CREATED AUTHOR AUTHOR'S ORGANIZ ATION 08/02/2024 [facility] EPIC DATE CREATED AUTHOR AUTHOR'S ORGANIZ ATION 08/09/2024 [facility] Care Team (unrecognized sect ion and [...] July 17, 2023 End: July 17, 2023 Commercial Manager Relationship Specialty Start Date End Date Dank Campo MD [address] [place] [address] PCP - General Family Medicine 07/25/23 Commercial Manager Relationship Specialty Start Date End Date Dank Campo MD [address] [place] [address] PCP - General Family Medicine 07/25/23 Team Status: Inactive Member Role Status Dates Dank Campo MD Primary Care Provider Active S tart: July 24, 2023 End: July 24, 2023 KERRI Thorpe Attending Provider Active Start: July 24, 2023 End: July 24, 2023 Team Status: Inactive Member Role Status Dates Dank Campo MD Primary Care Provide r, Attending Provider, Referring Provider Active Start: August 09, 2023 End: August 09, 2023 Team Status: Inactive Member Role Status Dates Dank Campo MD Primary Care Provider Active S tart: March 17, 2024 End: March 17, 2024 Rich Alvares APRN Attending Provider Active Start: March 17, 2024 End: March 17, 2024 Commercial Manager Relationship Specialty Start Date End Date Dank Campo MD [address] [place] [address] PCP - General Family Medicine 08/17/23 Commercial Manager Relationship Specialty Start Date End Date Dank Campo MD [address] [place] [address] PCP - General Family Medicine 08/17/23 Commercial Manager Relationship Specialty Start Date End Date Dank Campo MD [address] [place] [address] PCP - General Family Medicine 08/17/23 Commercial Manager Relationship Specialty Start Date End Date Dank Campo MD [address] [place] [address] PCP - General Family Medicine 08/17/23 Commercial Manager Relationship Specialty Start Date End Date Dank Campo MD [address] [place] [address] PCP - General Family Medicine 08/17/23 Commercial Manager Relationship Specialty Start Date End Date Dank Campo MD [address] [place] [address] PCP - General Family Medicine 08/17/23 Commercial Manager Relationship Specialty Start Date End Date Dank Campo MD [address] [place] [address] PCP - General Family Medicine 08/17/23 Team Status: Inactive Member Role Status Dates Dank Campo MD Primary Care Provider Active S tart: April 15, 2024 End: April 15, 2024 Rich Alvares APRN Attending Provider Active Start: April 15, 2024 End: April 15, 2024 Commercial Manager Relationship Specialty Start Date End Date Dank Campo MD [address] [place] [address] PCP - General Family Medicine 08/17/23 Commercial Manager Relationship Specialty Start Date End Date Dank Campo MD [address] [place] [address] PCP - General Family Medicine 08/17/23 Commercial Manager Relationship Specialty Start Date End Date Dank Campo MD [address] [place] [address] PCP - General Family Medicine 08/17/23 Commercial Manager Relationship Specialty Start Date End Date Dank Campo MD [address] [place] [address] PCP - General Family Medicine 08/17/23 Commercial Manager Relationship Specialty Start Date End Date Dank Campo MD [address] [place] [address] PCP - General Family Medicine 08/17/23 Commercial Manager Relationship Specialty Start Date End Date Dank Campo MD [address] [place] [address] PCP - General Family Medicine 08/17/23 Commercial Manager Relationship Specialty Start Date End Date Dank Campo MD [address] [place] [address] PCP - General Family Medicine 08/17/23 Commercial Manager Relationship Specialty Start Date End Date Dank Campo MD [address] [place] [address] PCP - General Family Medicine 08/17/23 Commercial Manager Relationship Specialty Start Date End Date Dank Campo MD [address] [place] [address] PCP - General Family Medicine 08/17/23 Commercial Manager Relationship Specialty Start Date End Date Dank Campo MD [address] [place] [address] PCP - General Family Medicine 08/17/23 Commercial Manager Relationship Specialty Start Date End Date Dank Campo MD [address] [place] [address] PCP - General Family Medicine 08/17/23 Commercial Manager Relationship Specialty Start Date End Date Dank Campo MD [address] [place] [address] PCP - General Family Medicine 08/17/23 Commercial Manager Relationship Specialty Start Date End Date Dank Campo MD [address] [place] [address] PCP - General Family Medicine 08/17/23 Commercial Manager Relationship Specialty Start Date End Date Dank Capmo MD [address] [place] [address] PCP - General Family Medicine 08/17/23 Commercial Manager Relationship Specialty Start Date End Date Dank Campo MD [address] [place] [address] PCP - General Family Medicine 08/17/23 Commercial Manager Relationship Specialty Start Date End Date Dank Campo MD [address] [place] [address] PCP - General Family Medicine 08/17/23 Commercial Manager Relationship Specialty Start Date End Date Dank Campo MD [address] [place] [address] PCP - General Family Medicine 08/17/23 Commercial Manager Relationship Specialty Start Date End Date Dank Campo MD [address] [place] [address] PCP - General Family Medicine 08/17/23 Commercial Manager Relationship Specialty Start Date End Date Dank Campo MD [address] [place] [address] PCP - General Family Medicine 08/17/23 Commercial Manager Relationship Specialty Start Date End Date Dank Campo MD [address] [place] [address] PCP - General Family Medicine 08/17/23 Commercial Manager Relationship Specialty Start Date End Date Dank Campo MD [address] [place] [address] PCP - General Family Medicine 08/17/23 Commercial Manager Relationship Specialty Start Date End Date Dank Campo MD [address] [place] [address] PCP - General Family Medicine 08/17/23 Commercial Manager Relationship Specialty Start Date End Date Dank Campo MD [address] [place] [address] PCP - General Family Medicine 08/17/23 Commercial Manager Relationship Specialty Start Date End Date Dank Campo MD [address] [place] [address] PCP - General Family Medicine 08/17/23 Commercial Manager Relationship Specialty Start Date End Date Dank Campo MD [address] [place] [address] PCP - General Family Medicine 08/17/23 Commercial Manager Relationship Specialty Start Date End Date Dank Campo MD [address] [place] [address] PCP - General Family Medicine 08/17/23 Commercial Manager Relationship Specialty Start Date End Date Dank Campo MD [address] [place] [address] PCP - General Family Medicine 08/17/23 Commercial Manager Relationship Specialty Start Date End Date Dank Campo MD [address] [place] [address] PCP - General Family Medicine 08/17/23 Commercial Manager Relationship Specialty Start Date End Date Dank Campo MD [address] [place] [address] PCP - General Family Medicine 08/17/23 Commercial Manager Relationship Specialty Start Date End Date Dank Campo MD [address] [place] [address] PCP - General Family Medicine 08/17/23 Commercial Manager Relationship Specialty Start Date End Date Dank Campo MD [address] [place] [address] PCP - General Family Medicine 08/17/23 Team Status: Inactive Member Role Status Dates Dank Campo MD Primary Care Provider Active S tart: July 30, 2024 End: July 30, 2024 Rich Alvares APRN Attending Provider Active Start: July 30, 2024 End: July 30, 2024 Commercial Manager Relationship Specialty Start Date End Date Dank Campo MD [address] [place] [address] PCP - General Family Medicine 08/17/23 Commercial Manager Relationship Specialty Start Date End Date Dank Campo MD [address] [place] [address] PCP - General Family Medicine 12/10/17 Commercial Manager Relationship Specialty Start Date End Date Dank Campo MD [address] [place], [place] [phone] PCP - General Family Medicine 12/10/17 Commercial Manager Relationship Specialty Start Date End Date Dank Campo MD [address] [place], [place] [phone] PCP - General Family Medicine 12/10/17 Commercial Manager Relationship Specialty Start Date End Date Dank Campo MD [address] [place] [facility] [address] PCP - General Family Medicine 12/10/17 Commercial Manager Relationship Specialty Start Date End Date Dank Campo MD [address] [place] [facility] [address] PCP - General Family Medicine 12/10/17 Commercial Manager Relationship Specialty Start Date End Date Dank Campo MD [address] [place] [facility] [address] PCP - General Family Medicine 12/10/17 Commercial Manager Relationship Specialty Start Date End Date Dank Campo MD [address] [place] [facility] [address] PCP - General Family Medicine 12/10/17 Commercial Manager Relationship Specialty Start Date End Date Dank Campo MD [address] [place] [facility] [address] PCP - General Family Medicine 03/12/24 Commercial Manager Relationship Specialty Start Date End Date Dank Campo MD PCP - General Family Medicine 12/10/17 Commercial Manager Relationship Specialty Start Date End Date Dank Campo MD PCP - General Family Medicine 12/10/17 REASON FOR VISIT (unrecogniz ed section and content) Reason Comments Diabetes Reason Comments Pain Reason Comments Pain Reason [...] inc rease Reason Comments Foot Pain Darrin Seymuor 68yo inocencio ent presents with Left foot [...] Comments Advice Only 02/04/2024 [employer] Specialty Diagnoses / Procedures Referred By Anabel salinas Referred To Contact Diagnoses Obstructive sleep apnea syndrome CSA (central sleep apnea) Procedures Polysomnography 4 or more parameters with PAP titration Gregoria Ralph MASTER GLAZIER-WEB CONTENT DIRECTOR [address] [facility], [address] [place] [address] Referral ID Status Reason Start Date Expiration Date Visits Re quested Visits Authorized [id number] Closed 08/15/2023 08/14/2024 1 1 Reason Comments Sleep Apnea DME: [facility] Specialty Diagnoses / Procedures Referred By Anabel salinas Referred To Contact Pulmonary Medicine / Sleep Medicine Diagnoses Obstructive sleep apnea syndrome Jyoti Roth APRN-WEB CONTENT DIRECTOR [address] [facility] [address] [place] [address] [facility] Pulm Sleep Med [address] [place] [address] [place] [address] Referral ID Status Reason Start Date Expiration Date Visits Requested Visits Authorized [id number] Pending Review Specialty Services Required 08/13/2023 08/12/2024 1 1 Reason Onset Date Comments Sleep Lab 08/17/2023 CPAP Reason Comments Follow-up LDSCT: not completed Sleep Apnea DME: [facility] Goals (unrecognized section and content) Goals may [...] BE BASED ON THE PRIMARY CLINICAL RECORDS. [facility]. provides no warranty or guarantee of the accuracy or completeness of information in this document.
[2024-08-18 07:01] VITALS: BP 132/81; PULSE 78; TEMP 35.9; O2SAT 98
[2024-08-18 07:06] LABS: Glucometer 222 mg/dL (74-106)
[2024-08-18 07:59] VITALS: BP 177/88; PULSE 76; O2SAT 97
[2024-08-18 08:07] VITALS: PULSE 74; O2SAT 95
[2024-08-18 08:10] VITALS: BP 161/84
[2024-08-18] MEDS: BUPIVACAINE HCL 0.25% PF 25 MG/10 ML VIAL 4 ML INJ (08:13)
[2024-08-18] MEDS: METHYLPREDNISOLONE ACETATE 40 MG/ML VIAL 80 MG INJ (08:14)
[2024-08-18] MEDS: LIDOCAINE HCL 2% 400 MG/20 ML MDV 16 ML INJ (08:14)
--- NOTE | 2024-08-18 08:14 | P.ON_ITS ---
Date of procedure: 08/18/24 Pre-op diagnosis: Pain due to lumbar spondylosis without myelopathy Post-op diagnosis: same as pre-op Procedure: Procedure: Bilateral L3-4, L4-5 radiofrequency ablation Medications: Bupivacaine 0.25% 6cc, lidocaine 2% 6cc, depomedrol 80mg The patient was seen and examined in the preoperative holding area.? The site was marked.? Written informed consent was obtained and placed on the chart.? The patient was brought to the medical procedure unit and placed in the prone position.? A timeout was completed verifying correct patient, procedure, positioning, and special requirements.? The skin overlying the target points, the designated medial branch, were prepped and draped in the usual sterile fashion.? The target point was achieved with a 20-gauge 15 cm with a 10 mm curved active tip radiofrequency cannula under direct fluoroscopic visualizatio n.? The needle was inserted at level L3 on the right side. Needle tip position was confirmed with lateral fluoroscopic position.? Motor stimulation was carried out at 2 Hz up to 5 volts with the absence of extremity activity.? This was repeated at level L4, 5 on right side.?? Sensory stimulation was carried out.? Concordant pain was realized at the above- mentioned sites.? Then radiofrequency lesioning was carried out times 90 seconds at 80 degrees times 2 lesions at each level.? The radiofrequency probe was removed prior to cannula removal.? The above-mentioned injectate was placed in 1 mL increments.? The needle was removed. The same procedure, with the same steps, was then completed on the left side at the same levels. Insertion sites were covered.? The patient was taken to the postoperative recovery area and monitored for an appropriate length of time before being found suitable for discharge in the company of a responsible adult. Anesthesia: Local Surgeon: Roma Lopez Pathology: none sent Condition: stable Disposition: no change
== END 2024-08-18 08:18 | disposition home or self-care (01) ==
LOC: SURGOUT 06:47
PROVIDERS: PCP Family Medicine; Visit Provider Anesthesiology
DX: M47.816 Spondylosis without myelopathy or radiculopathy, lumbar region (principal)
CPT/HCPCS: 36415; 64635; 64636; 82948; J0665; J1010

== ENCOUNTER 2024-09-24 08:08 | Outpatient (OUT) | payer MEDICARE, SELFPAY ==
--- OUTSIDE RECORDS SUMMARY | 2024-09-24 08:29 | XMS_ITS | CCD ---
Author Organization [facility] Care Team Providers Care Hat Measurer Name Role Phone DANK CAMPO Primary Care Physician MD Dank Campo Primary Care Provider [phone] MD Kike Bernal Attending Provider Asaad, Imad Unavailable FERNANDO ., MR REBECCA Admitting Unavailable NADERER, DR DANK Leon Primary Care Unavailable DIAS ., MR REBECCA Attending Unavailable DIAS ., MR REBECCA Consulting Unavailable PETERSEN ., DR WINKLER Consulting Unavailable PETERSEN ., DR WINKLER Admitting Unavailable NADERER, DR DANK Leon Primary Care Unavailable PETERSEN ., DR WINKLER Attending Unavailable NADERER, DR DANK Loen Primary Care Unavailable ASAAD, IMAD Admitting Unavailable [...] NADERER, DR DANK Leon Primary Care Unavailable DUTTON, DR SORIN Rodarte Consulting Unavailable NADERER, DR DANK Leon Admitting Unavailable NADERER, DR DANK Leon Attending Unavailable NADERER, DR DANK Leon Primary Care Unavailable YENIEREGraciela, DR DANK Leon Consulting Unavailable MD Dank Campo Primary Care Provider MD Kike Bernal Attending Provider MD Dank Campo Attending Provider MD Dank Campo Attending Provider Jena RAYMUNDO, Dank Primary Care Provider MD Dank Campo Primary Care Provider [phone] KERRI Boswell Attending Provider [phone] MD Dank Campo Referring Provider GREGORIA RALPH Referring Unavailable NADERER, DANK Primary Care Unavailable Peterson PETERSEN Attending Unavailable ROSALVA MURO Attending Unavailable ROSALVA MURO Admitting Unavailable Peterson PETERSEN Attending Unavailable DEJUAN PETERSEN Attending Unavailable Peterson PETERSEN Attending Unavailable Peterson PETERSEN Attending Unavailable GREGORIA RALPH Attending Unavailable NADERER, DANK Referring Unavailable NADERER, DANK Primary Care Unavailable HANNA BUTCHER Attending Unavailable YENIERER, DANK Referring Unavailable NADERER, DANK Primary Care Unavailable Dank Campo MD Primary Care Provider GREGORIA RALPH Referring Unavailable NADERER, DANK Primary Care Unavailable GREGORIA RALPH Referring Unavailable NADERER, DANK Primary Care Unavailable HANNA BUTCHER Attending Unavailable HANNA BUTCHER Referring Unavailable NADERER, DANK Primary Care Unavailable REBECCA DIAS Referring Unavailable NADERER, DANK Primary Care Unavailable Dank Campo MD Primary Care Provider Rich Alvares APRN Attending Provider Jena, Dank Primary Care Unavailable Asaad, Imad Attending Unavailable Asaad, Imad Admitting Unavailable Naderer, Dank Admitting Unavailable Naderer, Dank Referring Unavailable Naderer, Dank Attending Unavailable Naderer, Dank Primary Care Unavailable Jyoti Roth Admitting Unavailable Naderer, Dank Primary Care Unavailable Jyoti Roth Attending Unavailable Naderer, Dank Admitting Unavailable Naderer, Dank Attending Unavailable Naderer, Dank Primary Care Unavailable Naderer, Dank Primary Care Unavailable Rich Alvares Attending Unavailable Rich Alvares Admitting Unavailable REBECCA DIAS Attending Unavailable ASHLI ROSS Attending Unavailable DEXTER KRISHNAMURTHY Attending Unavailable NADERER, ADNK Referring Unavailable NADERER, DANK Attending Unavailable RUSHER, [...] Attending Unavailable DIAS, REBECCA Cornell Attending Unavailable PETZNICK, ASHLI Scott Attending Unavailable DIAS, REBECCA Cornell Attending Unavailable BERKOWITZ, ALMA Attending Unavailable DIAS, REBECCA J Referring Unavailable VICK, KADEN Attending Unavailable DIAS, REBECCA J Referring Unavailable VICK, KADEN Attending Unavailable DAIS, REBECCA J Referring Unavailable NADERER, DANK Attending Unavailable BLACKSTON, VALENTINE Salinas Attending Unavailable DIAS, REBECCA J Referring Unavailable [...] Attending Unavailable DIAS, REBECCA J Referring Unavailable Jena RAYMUNDO, Dank Primary Care Provider Jena RAYMUNDO, Dank Primary Care Provider [phone] Jena RAYMUNDO, Dank Primary Care Provider [phone] Gistephanieitis , Andrius Arteaga Attending Unavailable Giedraitis , Andrius Vytkatiuska Attending Unavailable Gieditis , Andrius Vytautas Attending Unavailable Giedraitis , Andrius Vytautas Attending Unavailable Gieditis , Andjurgen Arteaga Attending Unavailable Giedraitis MD, Roma Arteaga Attending Unavailable Jessica RAYMUNDO, Roma Arteaga Attending Unavailable Jessica RAYMUNDO, Roma Arteaga Attending Unavailable Dank Campo MD Primary Care Provider [phone] Rich Alvares APRN Attending Provider Allergies Allergy Classification Reported Allergen(s) Allergy Type Date of Onset Reaction(s) Facility (1 source) No Known Medication Allergies; Translations: [No Known Medication Allergies] Propensity to adverse reactions (disorder) [facility] Repository Medications Current Medications Medication [...] Start: 01-30-2019 take 1 capsule by mo [facility] twice daily Celecoxib 200 mg Capsule Active 200 MG PO Twice daily January 30, 2019 12:00am Continuous Blood Gluc Sensor (Dexcom G7 Sensor) misc (20 sources) Start: 06-05-2023 End: 06-04-2024 Continuous Blood Gluc Sensor (Dexcom G7 Sensor) misc Indications: Type 2 diabetes mellitus with diabetic polyneuropathy, with long-term current use of insulin ([facility]) Inject 1 Device under the skin See administration instructions Change every 10 days 9 each 3 06/05/2023 06/04/2024 Active Continuous Blood Gluc Sensor (FreeStyle Cornelius 2 Sensor) misc (2 sources) Start: 05-23-2023 End: 07-30-2023 Continuous Blood Gluc Sensor (FreeStyle Cornelius [address]) [facility] Indications: Type 2 diabetes mellitus with diabetic polyneuropathy, with long-term current use of insulin ([facility]) Use as directed 2 each 11 05/23/2023 07/30/2023 Discontinued (Therapy completed) Continuous Glucose Sensor (Dexcom G7 Sensor) [facility] (17 sources) Start: 06-13-2024 Continuous Glu cose Sensor (Dexcom G7 Sensor) [facility] Indications: Type 2 diabetes mellitus with diabetic polyneuropathy, with long-term current use of insulin ([facility]) USE DIRECTED to check BLOOD [...] MG tablet Indications: JARAD (generalized anxiety disorder) ([facility]) Take 1 tablet (5 mg) by mouth 3 (three) times a day as needed for anxiety for up to 20 days 60 tablet 11/14/2023 04/08/2024 Discontinued Start: 06-21-2023 diazePAM (Niranjan um) 5 MG tablet Indications: Anxiety Take 1 tablet (5 mg) by mouth 1 (one) time for 1 dose Take 30 minutes prior to MRI. 2 tablet 0 06/21/2023 Active dicyclomine hydrochloride 10 mg oral capsule (11 sources) Anticholinergic Start: 08-05-2024 take 1 capsule by mouth three times daily Dicyclomine 10 mg capsule Active 10 MG PO Three times daily 90 30 August 05, 2024 1:00am Start: 02-11-2020 End: 12-08-2020 take 1 tablet by mouth three times daily Dicyclomine 20 mg Tablet Discontinued 20 MG PO Three times daily February 11, 2020 12:00am December 08, 2020 9:09am fluorometholone 1 mg/ml ophthalmic suspension (20 sources) [...] MG capsule Indications: JARAD (generalized anxiety disorder) ([facility]) Take 1 capsule (40 mg) by mouth Daily 90 capsule 3 05/28/2024 Active Start: 10-30-2023 End: 05-28-2024 take 1 capsule by mouth once daily Fluoxetine (Prozac) 20 mg capsule Active 20 MG PO Daily October 30, 2023 12:00am fluticasone 0.05 mg/inh Nasal Atkinson (5 sources) Start: 07-28-2019 fluticasone 0. 05 mg/inh Nasal [place] Nasal, Daily, Refill(s) 0 Start Date: 07/28/19 [...] use of insulin ([facility]) INJECT 18 UNITS BREAKFAST/LUNCH, 35 units DINNER PLUS CORRECTIONS OF 1:30 > 150MG/DL ( MAX 100 UNITS A DAY) 90 mL 3 07/31/2024 Active Start: 07-31-2024 insulin lispro (HumaLOG) 100 UNIT/ML injection Indications: Type 2 diabetes mellitus with diabetic polyneuropathy, with long-term current use of insulin ([facility]) INJECT 18 UNITS BREAKFAST/LUNCH, 35 units DINNER PLUS CORRECTIONS OF 1:30 > 150MG/DL ( MAX 100 UNITS A DAY) 90 mL 3 07/31/2024 Active Start: 04-29-2024 End: 07-31-2024 insulin lispro (HumaLOG) 100 UNIT/ML injection Indications: Type 2 diabetes mellitus with diabetic polyneuropathy, with long-term current use of insulin ([facility]) INJECT 12 UNITS BREAKFAST, 25 UNITS LUNCH/ DINNER PLUS CORRECTIONS OF 1:30 > 150MG/DL ( MAX 100 UNITS A DAY) 90 mL 3 06/16/2024 07/31/2024 Discontinued (Dose adjustment) Start: 03-17-2024 insulin lispro (HumaLOG) 100 UNIT/ML injection Indications: Type 2 diabetes mellitus with diabetic polyneuropathy, with long-term current use of insulin ([facility]) INJECT 5-10 UNITS BREAKFAST, 30 UNITS LUNCH/ DINNER PLUS CORRECTIONS OF 1:30 > 150MG/DL ( MAX 100 UNITS A DAY) 90 mL 3 03/17/2024 Active Start: 10-30-2023 End: 04-29-2024 insulin lispro (HumaLOG) 100 UNIT/ML injection Indications: Type 2 diabetes mellitus with diabetic polyneuropathy, with long-term current use of insulin ([facility]) INJECT 5-10 UNITS BREAKFAST, 30 UNITS LUNCH/ DINNER PLUS CORRECTIONS OF 1:30 > 150MG/DL ( MAX 100 UNITS A DAY) 90 mL 3 03/17/2024 04/29/2024 Discontinued (Dose adjustment) Start: 06-05-2023 insulin lispro (HumaLOG) 100 UNIT/ML injection Indications: Type 2 diabetes mellitus with diabetic polyneuropathy, with long-term current use of insulin ([facility]) INJECT 8-15 UNITS BREAKFAST, 20 [...] Active Insulin Lispro 100 unit/mL insulin pen (3 sources) Start: 04-27-2023 inject 1 dose by subcutaneous injection once before mealtime Insulin Lispro 100 unit/mL insulin pen Active 1 sliding scale dose SUBCUT 3x/Day before meals April 27, 2023 1:00am Start: 04-27-2023 inject 1 dose by sub cutaneous injection once before mealtime Insulin Lispro 100 unit/mL insulin pen Active 1 sliding scale dose SUBCUT 3x/Day before meals April 27, 2023 12:00am Insulin Lispro KwikPen 100 units/mL injectable solution (1 source) Start: 02-12-2023 Insulin Lispro KwikPen 100 units/mL injectable solution Refills(s) 0 Start Date: 02/12/23 Status: Ordered ketoconazole 20 mg/ml topical cream (6 sources) Azole Antifungal Start: 08-09-2023 Ketoconazole 2 [...] Tablet Active 10 MG PO Daily January 30, [...] take 1 tablet by mouth once daily Magnesium Oxide 400 mg (241.3 mg magnesium) tablet Active 400 MG PO Daily August 09, 2023 1:00am Start: 06-20-2023 take 1 tablet by maciej th once daily magnesium oxide (Mag-Ox) 400 (240 Mg) MG tablet Indications: Hypomagnesemia TAKE 1 TABLET BY MOUTH DAILY 30 tablet 5 06/20/2023 Active metFORMIN (20 sources) Biguanide Start: 03-31-2019 metformin Oral , [...] Start: 01-30-2019 take 1 capsule by mo ut once daily Metoprolol Succinate 50 mg Capsule,Sprinkle,Er 24hr Active 50 MG PO Daily January 30, [...] PO Daily July 24, 2022 12:00am Semaglutide (6 sources) Start: 08-09-2023 Semaglutide (O zempic) 0.25 [...] End: 07-23-2025 take 1 tablet by mouth once daily in the evening Simvastatin 40 mg Tablet Active 40 MG PO Every evening January 30, 2019 12:00am spironolactone 50 mg oral tablet (20 sources) [...] 5 days 20 tablet 04/24/2024 04/29/2024 Discontinued [id number] 200 actuat albuterol 0.09 mg/actuat metered dose inhaler (2 sources) beta2-Adrenergic Agonist Start: 12-22-2020 End: 08-15-2023 take 2 puff(s) by inhalation every four hours as needed for wheezing albuterol (PROVENTIL HFA;VENTOLIN HFA) 90 mcg/actuation inhaler Indications: Chronic obstructive pulmonary disease, unspecified COPD type ([facility]) Inhale 2 puffs every 4 (four) hours as needed for wheezing. 18 g 11 12/22/2020 08/15/2023 Discontinued (Discontinued by another clinician) clindamycin 300 mg oral capsule (5 sources) Lincosamide Antibacterial Start: 01-28-2021 take 2 capsules by mouth every twelve hours Clindamycin HCl 300 MG 2 capsules Orally bid for 10 day(s) Jan, Not-Taking dibucaine 0.01 mg/mg rectal ointment (10 sources) Standardized Chemical Allergen Start: 12-08-2020 End: 03-14-2021 Dibucaine 1 % ointment Discontinued 1 APPLIC NE Four times daily as needed for rectal discomfort 56 December 08, 2020 12:00am March 14, 2021 12:08pm docusate sodium 100 mg oral capsule (10 sources) Start: 12-08-2020 End: 03-14-2021 take 1 capsule by mouth once daily as needed Docusate Sodium (Sof-Lax) 100 mg capsule Discontinued 100 MG PO Daily as needed for hard stool 60 December 08, 2020 10:33am March 14, 2021 12:08pm fluticasone propionate 0.05 mg/actuat metered dose nasal spray (20 sources) Corticosteroid Start: 02-11-2020 End: 07-24-2022 Fluticasone Propionate (Flonase Allergy Relief) 50 mcg/actuation Atkinson,Suspension Discontinued 1 SPRAY INTRANASAL Daily February 11, 2020 12:00am July 24, 2022 1:24pm Start: 07-28-2019 fluticasone 0. 05 mg/inh Nasal Atkinson Nasal, Daily, Refill(s) 0 Start Date: 07/28/19 [...] day Not-Taking furosemide 40 mg oral tablet (14 sources) Loop Diuretic Start: 12-18-2022 End: 10-30-2023 take 1 tablet by mouth once daily Furosemide 40 mg tablet Discontinued 40 MG PO Daily April 27, 2023 1:00am October 30, 2023 1:48pm Furosemide Activ e glipiZIDE 10 mg oral tablet (10 sources) Sulfonylurea Start: 01-30-2019 End: 08-18-2020 take 1 tablet by mouth once daily Glipizide 10 mg Tablet Discontinued 10 MG PO Daily January 30, [...] as needed for Diarrhea April 27, 2023 1:00am March 27, 2024 9:18am loratadine 10 mg oral tablet (10 sources) Start: 12-08-2020 End: 03-14-2021 take 1 tablet by mouth once daily as needed Loratadine (Claritin) 10 mg Tablet Discontinued 10 MG PO Daily as needed for Allergy Symptoms December 08, 2020 12:00am March 14, 2021 12:08pm Magnesium (10 sources) Start: 01-30-2019 End: 08-09-2023 take 2 tablets by mouth once daily Magnesium 200 mg Tablet Discontinued 400 MG PO Daily January 30, 2019 12:00am August 09, 2023 12:10pm Start: 01-30-2019 End: 08-09-2023 take 2 tablets [...] day(s) Not-Taking oxaprozin 600 mg oral tablet (9 sources) Nonsteroidal Anti-inflammatory Drug Start: 04-27-20 End: [...] Active pyridostigmine bromide 60 mg oral tablet (10 sources) Start: 01-30-2019 End: 08-18-2020 take 1 tablet by mouth three times daily Pyridostigmine [place] 60 mg Tablet Discontinued 60 MG PO Three times daily January 30, 2019 12:00am August 18, 2020 12:30pm Semaglutide (Rybelsus) 14 mg tablet (6 sources) Start: 07-24-2022 End: 08-09-2023 take 1 [...] 2023 11:01am sucralfate 1000 mg oral tablet (10 sources) Aluminum Complex Start: 02-11-2020 End: 03-14-2021 take 1 tablet by mouth before mealtime Sucralfate 1 gram Tablet Discontinued 1 GM PO before meals February 11, 2020 12:00am March 14, 2021 12:09pm tamsulosin hydrochloride 0.4 mg oral capsule (12 sources) alpha-Adrenergi c Nirav Start: 01-30-2019 End: 03-14-2021 take 1 capsule by mouth once daily Tamsulosin 0.4 mg Capsule Discontinued 0.4 MG PO Daily January 30, [...] Date Documented Da te Episodic/Chronic Abdominal pain (3 sources) Indigestion; Translations: [Epigastric pain] 04-15-2024 Episodic Acute and unspecified renal failure (20 sources) Renal failure syndrome; Translations: [Unspecified kidney failure] Onset: 9 12-04-2022 Chronic Anxiety disorders (20 sources) Generalized anxiety disorder; Translations: [Generalized anxiety disorder] Onset: 4 10-11-2023 Chronic Biliary tract disease (10 sources) Common bile duct calculus; Translations: [Calculus [...] 0 12-04-2022 Chronic Deficiency and other anemia (15 sources) Iron deficiency anemia; Translations: [Iron deficiency [...] 12-04-2022 Chronic Other aftercare (1 source) 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; Translations: [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 DRUG 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] Onset: 3 Episodic [...] syndrome with diarrhea] Chronic Other gastrointestinal disorders (2 sources) Irritable bowel syndrome; Translations: [Irritable bowel syndrome without diarrhea] 07-30-2024 Chronic Other gastrointestinal disorders (2 sources) Irritable bowel syndrome without diarrhea; Translations: [Irritable bowel syndrome] 07-30-2024 Chronic Other gastrointestinal disorders (10 sources) Acquired arteriovenous malformation; Translations: [Angiodysplasia of colon with hemorrhage] 09-02-2020 Episodic Other gastrointestinal disorders (15 sources) Dysphagia; Translations: [Dysphagia, unspecified] 01-30-2019 Episodic Other gastrointestinal disorders (15 sources) Diarrhea; Translations: [Diarrhea, unspecified] 01-30-2019 Episodic [...] abdomen] Onset: 5 Episodic Other gastrointestinal disorders (4 sources) Constipation alternates with diarrhea; Translations: [Other [...] sources) Long-term current use of insulin; 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: [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] Onset: 12-04-2022 12-04-2022 Episodic Other aftercare (20 sources) Long-term current use of drug therapy; Translations: [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] Onset: 08-29-2023 08-29-2023 Episodic Other aftercare (2 sources) Patient encounter status; Translations: [Other halfway (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 therapy] Onset: [...] Interpretation and review of laboratory results Abnormal [facility] - Hematology and Cell countson 07-31-2024 HbA1c (Bld) [Mass fraction] 9.4 % [facility] X-ray reportOrdered By: Tico Mckeon on 07-30-2024 Study report [address] [address] XRay Report Signed Patient: Milad Seymour MR#: [id number] : 1955 Acct:[id number] Age/Sex: 68 / M ADM Date: 5 Loc: XD Room: Type: REG CLI Attending Dr: Rich Alvares 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 Copies to: Rich Alvares APRN~ Ordering Provider: [...] Osvaldo Mckeon M.D.07/30/2024 11:41 PM Dictation Location: [place] [address] Transcribed By: [facility] 07/30/242340 Dictated By: Osvaldo Mckeon MD 07/30/242337 Signed By: 07/30/24 [facility] Work Phone: XR KUBon 07-30-2024 XR KUB [facility] Main [address] [address] XRay Report Signed Patient: Milad Seymour MR#: [id number] : 1955 Acct:[id number] Age/Sex: 68 / M ADM Date: 07/30/24 Loc: XD Room: Type: REG CLI Attending Dr: Rich Alvares 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 Copies to: Rich Alvares APRN Ordering Provider: [...] Osvaldo Mckeon M.D.07/30/2024 11:41 PM Dictation Location: RADIO-PC-29 Transcribed By: [facility] 07/30/24 2341 Dictated By: Osvaldo Mckeon MD 07/30/24 2338 Signed By: 07/30/24 2341 Normal [facility] XR Foot - left 3 [facility] Result: 3 vi ews left foot: Weight-bearing: DP, oblique, lateral: 05/29/2024: Unremarkable for fracture or stress fracture changes. Unremarkable for acute osseous or joint pathology. Incidental findings include os peroneum within the cuboid groove; enthesophyte formation at the 5th metatarsal styloid. [facility] Study observation (narrative) [facility] HbA1c (Bld) [Mass fraction]o n 04-29-2024 Interpretation and review of laboratory results Normal [facility] - Hematology and Cell countson 04-29-2024 HbA1c (Bld) [Mass fraction] 7.9 % [facility] ALL CBC WITH AUTO DIFFon BASOPHILS ABSOLUTE AUTO 0.1 [facility] Basophils/100 WBC (Bld) 0.6 % 0.2 - 2.0 % [facility] Eosinophils/100 WBC (Bld) 1.8 % 0.9 - 7.0 % [facility] Erythrocyte distribution width (RBC) [Ratio] 12.8 % 11.0 - 15.0 % [facility] Hematocrit (Bld) [Volume fraction] 40.7 % Low 42.0 - 54.0 % [facility] Hemoglobin (Bld) [Mass/Vol] 13.6 g/dL Low 14.0 - 18.0 g/dL [facility] IMMATURE GRANULOCYTES ABS AUTO 0.1 High [facility] Immature granulocytes/100 WBC (Bld) 1.2 % High 0.0 - 0.5 % [facility] Interpretation and review of laboratory results Abnormal [facility] LYMPHOCYTES ABSOLUTE AUTO 2 [facility] Lymphocytes/100 WBC (Bld) 24.2 % 20.5 - 60.0 % [facility] MCH (RBC) [Entitic mass] 30.6 pg 25.9 - 34.0 pg [facility] MCHC (RBC) [Mass/Vol] 33.4 g/dL 29.9 - 35.2 g/dL [facility] MCV (RBC) [Entitic vol] 91.7 fL 80.0 - 94.0 fL [facility] MONOCYTES ABSOLUTE AUTO 0.5 [facility] Monocytes/100 WBC (Bld) 6.3 % 1.7 - 12.0 % [facility] NEUTROPHILS ABSOLUTE AUTO 5.4 [facility] Neutrophils/100 WBC (Bld) 65.9 % 43.0 - 75.0 % [facility] Platelet mean volume (Bld) [Entitic vol] 9 fL Low 9.5 - 13.5 fL [facility] TBH EO # 0.2 [facility] TB PLT 143 Low [facility] TB RBC 4.[address] [facility] WBC 8.2 [facility] BASIC METABOLIC PANLon 03-18 Anion gap [Moles/Vol] 9 mmol/L Normal 5-[address] [facility] Comment on above: Performed By: #### C TORI CASTELAN, PINR #### [facility] ([id number]) [address], [address] [place] [address] Calcium [Mass/Vol] 9.7 mg/dL Normal 8.5-10.5 [facility] Comment on above: Performed By: #### C FLIP, BMP, PINR #### [facility] ([id number]) [address], [address] [place] [address] Chloride [Moles/Vol] 99 mmol/L Normal 98-109 [facility] Comment on above: Performed By: #### C BCA, BMP, PINR #### [facility] ([id number]) [address] [place] [address] CO2 [Moles/Vol] 23 mmol/L Normal 22-[address] [facility] Comment on above: Performed By: #### C BCA, BMP, PINR #### [facility] ([id number]) [address] [address] [address] [place] [address] Creatinine [Mass/Vol] 1.60 mg/dL High 0.60-1.[address] [facility] Comment on above: Result Comment: METH OD TRACEABLE TO IDMS STANDARD Performed By: #### C BCA, BMP, PINR #### [facility] ([id number]) [address] [address] GFR/1.73 sq M.predicted among non-blacks MDRD (S/P/Bld) [Vol rate/Area] 47 mL/min/{1.73_m2} Low >[address] [facility] Comment on above: Result Comment: Reported eGFR is based on the CKD-EPI 2020 equation that does not use a race coefficient. Performed By: #### C BCA, BMP, PINR #### [facility] ([id number]) [address] [place] [address] Glucose [Mass/Vol] 210 mg/dL High 65-99 [facility] Comment on above: Performed By: #### C BCA, BMP, PINR #### [facility] ([id number]) [address] [address] [place] [address] Potassium [Moles/Vol] 5.9 mmol/L High 3.5-5.[address] [facility] Comment on above: Performed By: #### C BCA, BMP, PINR #### [facility] ([id number]) [address] [address] Sodium [Moles/Vol] 131 mmol/L Low 134-146 [facility] Comment on above: Performed By: #### C BCA, BMP, PINR #### [facility] ([id number]) [address] [address] [place] [address] Urea nitrogen [Mass/Vol] 55 mg/dL High 5-[address] [facility] Comment on above: Performed By: #### C TORI CASTELAN, PINR #### [facility] ([id number]) [address], [address] [place] [address] CBC AND AUTO DIFFon 03-18-20 24 ABSOLUTE BASOPHIL 0.1 X10E9/L Normal 0.0-0.2 [facility] Comment on above: Performed By: #### C TORI CASTELAN, PINR #### [facility] ([id number]) [address], [facility] [address] [place] [address] ABSOLUTE NEUTROPHIL 10.1 X10E9/L High 1.5-6.6 [facility] Comment on above: Performed By: #### TORI Vidales BCA, PINR #### [facility] ([id number]) [address] [place] [address] Basophils/100 WBC (Bld) 0.4 % Normal [facility] Comment on above: Performed By: #### TORI Vidales BCA, PINR #### [facility] ([id number]) [address] [place] [address] Eosinophils (Bld) [#/Vol] 0.1 10*3/uL Normal 0.0-0.[address] [facility] Comment on above: Performed By: #### TORI Vidales BCA, PINR #### [facility] ([id number]) [address] [address] [place] [address] Eosinophils/100 WBC (Bld) 0.5 % Normal [facility] Comment on above: Performed By: #### Flash CASTELAN BMP, PINR #### [facility] ([id number]) [address] [place] [address] Erythrocyte distribution width (RBC) [Ratio] 14.1 % Normal 11.5-15.[address] [facility] Comment on above: Performed By: #### C BCA, BMP, PINR #### [facility] ([id number]) [address] [address] [place] [address] Hematocrit (Bld) [Volume fraction] 42.0 % Normal 39-[address] [facility] Comment on above: Performed By: #### C FLIP, BMP, PINR #### [facility] ([id number]) [address] [address] [place] [address] Hemoglobin (Bld) [Mass/Vol] 14.3 g/dL Normal 13.0-17.[address] [facility] Comment on above: Performed By: #### C FLIP, BMP, PINR #### [facility] ([id number]) [address] [address] [address] [place] [address] Lymphocytes (Bld) [#/Vol] 1.8 10*3/uL Normal 1.0-3.[address] [facility] Comment on above: Performed By: #### C FLIP, BMP, PINR #### [facility] ([id number]) [address] [address] [place] [address] Lymphocytes/100 WBC (Bld) 14.1 % Normal [facility] Comment on above: Performed By: #### C BCA, BMP, PINR #### [facility] ([id number]) [address], [facility] [address] [place] [address] MCH (RBC) [Entitic mass] 31.7 pg Normal 27-[address] [facility] Comment on above: Performed By: #### C BCA, BMP, PINR #### [facility] ([id number]) [address] [address] [address] [place] [address] MCHC (RBC) [Mass/Vol] 34.0 g/dL Normal 32-[address] [facility] Comment on above: Performed By: #### C BCA, BMP, PINR #### [facility] ([id number]) [address] [place] [address] MCV (RBC) [Entitic vol] 93 fL Normal 80-[address] [facility] Comment on above: Performed By: #### C FLIP BMP, PINR #### [facility] ([id number]) [address] [place] [address] Monocytes (Bld) [#/Vol] 0.5 10*3/uL Normal 0-0.[address] [facility] Comment on above: Performed By: #### C TORI CASTELAN, PINR #### [facility] ([id number]) [address] [place] [address] Monocytes/100 WBC (Bld) 4.1 % Normal [facility] Comment on above: Performed By: #### C TORI CASTELAN, PINR #### [facility] ([id number]) [address] [place] [address] Neutrophils/100 WBC (Bld) 80.9 % Normal [facility] Comment on above: Performed By: #### C FLIP, TORI, PINR #### [facility] ([id number]) [address] [place] [address] Platelet mean volume (Bld) [Entitic vol] 7.4 fL Normal 7-[address] [facility] Comment on above: Performed By: #### C FLIP, BMP, PINR #### [facility] ([id number]) [address] [place] [address] Platelets (Bld) [#/Vol] 171 10*3/uL Normal 150-[address] [facility] Comment on above: Performed By: #### C FLIP, BMP, PINR #### [facility] ([id number]) [address] [place] [address] RBC COUNT 4.51 X10E12/L Normal 4.10-5.[address] [facility] Comment on above: Performed By: #### C FLIP, TORI, PINR #### [facility] ([id number]) [address] [place] [address] WBC (Bld) [#/Vol] 12.5 10*3/uL High 4.0-11.0 [facility] Comment on above: Performed By: #### C FLIP, TORI, PINR #### [facility] ([id number]) [address] [place] [address] CBC W Auto Differential pane l (Bld)on 03-18-2024 ABSOLUTE BASOPHIL 0.1 [facility] Comment on above: PERFORMED AT [facility] [address],[place] [address] Basophils/100 WBC (Bld) 0.4 % [facility] Eosinophils (Bld) [#/Vol] 0.1 10*3/uL [facility] Eosinophils/100 WBC (Bld) 0.5 % [facility] Erythrocyte distribution width (RBC) [Ratio] 14.1 % 11.5 - 15.0 % [facility] Hematocrit (Bld) [Volume fraction] 42.0 % 39 - 49 % [facility] Hemoglobin (Bld) [Mass/Vol] 14.3 g/dL 13.0 - 17.0 g/dL [facility] Interpretation and review of laboratory results Abnormal [facility] Lymphocytes (Bld) [#/Vol] 1.8 10*3/uL [facility] Lymphocytes/100 WBC (Bld) 14.1 % [facility] MCH (RBC) [Entitic mass] 31.7 pg 27 - 34 pg [facility] MCHC (RBC) [Mass/Vol] 34.0 g/dL 32 - 36 g/dL [facility] MCV (RBC) [Entitic vol] 93 fL 80 - 100 fL [facility] Monocytes (Bld) [#/Vol] 0.5 10*3/uL [facility] Monocytes/100 WBC (Bld) 4.1 % [facility] Neutrophils (Bld) [#/Vol] 10.1 10*3/uL High [facility] Neutrophils/100 WBC (Bld) 80.9 % [facility] Platelet mean volume (Bld) [Entitic vol] 7.4 fL 7 - 12 fL [facility] Platelets (Bld) [#/Vol] 171 10*3/uL [facility] RBC (Bld) [#/Vol] 4.51 10*6/uL [facility] WBC corrected for nucl RBC Auto (Bld) [#/Vol] 12.5 High [facility] PROTIME AND INRon 03-18-2024 INR Coag (PPP) [Relative time] 1.0 {INR} Normal 0.8-1.[address] [facility] Comment on above: Performed By: #### C FLIP, BMP, PINR #### [facility] ([id number]) [address] [place] [address] PT Coag (PPP) [Time] 11.7 s Normal 9.8-13.2 [facility] Comment on above: Performed By: #### C BCA, BMP, PINR #### [facility] ([id number]) [address] [place] [address] Ambulatory Visit Summaryon 0 02-04-2024 Ambulatory Visit [...] Cap) fluticasone nasal (fluticasone 0.05 mg/inh Nasal Atkinson) insulin lispro (Insulin Lispro KwikPen 100 units/mL [...] When: Where: [facility] [address], [place] [phone] Medications What How Much When Instructions Unchanged aspirin (aspirin 81 mg Oral EC Tab) By Mouth Every day Contact prescribing physician if questions or concerns Unchanged celecoxib By Mouth Contact prescribing physician if questions or concerns Unchanged fluoxetine (FLUoxetine 20 mg Cap) 1 Capsules By Mouth Contact prescribing physician if questions or concerns Unchanged fluticasone nasal (fluticasone 0.05 mg/ inh Nasal Atkinson) Nasal Inhalation Every day Contact prescribing physician [...] with pro (more content not included)... Normal [facility] Urology Office/Clinic Noteon 02-04-2024 Urology [...] Rosalina 6 (3+3) x3, 26% involved with DOLORES [...] [facility] [address], [place] [phone] Additional Instructions: 1 yr w/ PSA Patient Education Prostate Cancer Screening Johana Campbell, personally scribed for Dr. Petersen on 02/04/2024 12:50:31. . Documentation recorded by the scribe, Johana [...] 1 cap(s), Oral fluticasone 0.05 mg/inh Nasal Atkinson, Nasal, Daily Ilumya 100 mg/mL subcutaneous solution, [...] Recorded SARS-CoV- (more content not included)... Normal [facility] Comment on above: Result Comment: Elec tronically Signed By: NICOLA RAYMUNDO, Peterson Day.french\Date and Time Signed: 02/04/24 12:52 EDT\.br\Electronically Co-Signed By: Johana Reeves\.br\Date and Time Co-Signed: 02/04/24 12:50 EDT [place] gastric emptying studyon 08-22-2023 [place] gastric emptying study [facility] [place] [address] [place] [address] Nuclear Medicine Report Signed Patient: Milad Seymour MR#: [id number] : 1955 Acct:[id number] Age/Sex: 67 / M ADM Date: 08/22/23 Loc: [place] Room: Type: [facility] Attending Dr: Kike Bernal MD Copies to: [...] Grimes Jr., D.OJitendra08/22/2023 12:21 PM Dictation Location: [place] [address] Transcribed By: [facility] 08/22/23 1221 Dictated By: Shaheen Grimes Jr, DO 08/22/23 1215 Signed By: 08/22/23 1221 Normal [facility] Glucose Poct Glucometerson 0 08-20-2023 Glucose [Mass/Vol] 182 mg/dL Normal [facility] Comment on above: Result Comment: [facility] Glucose Reference Range is dependent on time and content of last meal. Glucose of more than 200 mg/dL in a nonstressed, ambulatory subject supports the diagnosis of Diabetes Mellitus. PERFORMED BY: [address] [address] PATHOLOGIST [employer] JEANNINE VAZQUEZ M.D. Performed By: #### G LUCI #### Point of Care testing , Glucose [Mass/Vol] 227 mg/dL Normal [facility] Comment on above: Result Comment: [facility] Glucose Reference Range is dependent on time and content of last meal. Glucose of more than 200 mg/dL in a nonstressed, ambulatory subject supports the diagnosis of Diabetes Mellitus. PERFORMED BY: [address] [address] PATHOLOGIST [employer] JEANNINE VAZQUEZ M.D. Performed By: #### G LUCI #### Point of Care testing , XR pre/post mri xrayon 08-19 XR pre/post mri xray [facility] [address] [place] [id number] MRI Report Signed Patient: Milad Seymour MR#: [id number] : 1955 Acct:[id number] Age/Sex: 67 / M ADM Date: 08/20/23 Loc: [place] Room: Type: [facility] Attending Dr: Dank Campo MD Copies to: Dank Campo MD Ordering Provider: Dank Campo MD Date of Service: 08/20/23 MR/MR lumbar spine wo con: [id number] ([id number]) XR/XR pre/post mri xray: PRE LUMBAR MRI [...] Tom Chanel M.D.08/20/2023 1:02 PM Dictation Location: [place] [address] Transcribed By: [facility] 08/20/23 1302 Dictated By: Tom Chanel DO 08/20/23 1250 Signed By: 08/20/23 1302 Normal [facility] HbA1c (Bld) [Mass fraction]o n 07-30-2023 Interpretation and review of laboratory results Abnormal [facility] Hematology and Cell countson 07-30-2023 HbA1c (Bld) [Mass fraction] 8.9 % [facility] Glucose Glucometer (dC) [M ass/Vol]Ordered By: Kike Bernal on 04-27-2023 Glucose [Mass/Vol] 189 mg/dL [facility] Comment on above: Random Glucose Refer ence Range is dependent on time and content of last meal. Glucose of more than 200 mg/dL in a nonstressed, ambulatory subject supports the diagnosis of Diabetes Mellitus. No Panel InformationOrdered By: Kike Bernal on 04-27-2023 Bedside Glucose Comment Glu2: cleaned meter [facility] Patient Educationon 02-13-20 Patient Education Oncology [...] under a microscope. This is called the [place] score and the total score can range from 6?10, indicating how likely it is that the cancer will spread (metastasize) to other parts of the body. The higher the score, the greater the likelihood that the cancer will spread. ? [place] 6 or lower: This indicates that the cancer cells look similar to normal prostate cells (well differentiated). ? [place] 7: This indicates that the cancer cells look somewhat similar to normal prostate cells (moderately differentiated). ? [place] 8, 9, or 10: This indicates that [...] external be (more content not included)... Normal [facility] 02-12-2023 Reminders - From: Johana Reeves To: NOREEN Petersen; Sent: 02/12/2023 17:56:32 EDT Show up: 01/13/2024 17:56:00 EDT Subject: PSA prior to appt Reminder Message Please Remember to:_have pt get PSA done prior to appt in 1 year. Normal [facility] Urology Office/Clinic Noteon 02-12-2023 Urology [...] [facility] [address], [place] [phone] Additional Instructions: 1 yr w/ PSA Patient [...] TID celecoxib, Oral fluticasone 0.05 mg/inh Nasal Atkinson, Nasal, Daily Insulin Lispro KwikPen 100 units/mL [...] used for this result was chemiluminescence using [employer] Hy[employer] PSA reagent. PSA Total 0.5 ng/mL 11/28/2022 11:31 EDT The concentration of P (more content not included)... Normal [facility] Comment on above: Result Comment: [...] celecoxib fluticasone nasal (fluticasone 0.05 mg/inh Nasal Atkinson) lansoprazole lisinopril metformin metoprolol (metoprolol 25 mg [...] 0.4 ng/mL Normal 0.1 - 3.5 ng/mL [facility] Remisol PSA Totalon 02-06-2023 Prostate specific Ag [Mass/Vol] 0.4 ng/mL Normal 0.1-3.5 [facility] Comment on above: Result Comment: The concentration of PSA determined by different manufacturers can vary due to differences in assay methods and reagent specificity. Values obtained from different assay methods cannot be used interchangeably. The methodology used for this result was chemiluminescence using [employer] Access Hybritech PSA reagent. Performed By: #### 1 [id number] #### [facility] [address] [place] [address] PANCREATIC ELASTASE FECALon 09-24-2022 Pancreatic Elastase, Fecal 467 ug Elast./g Normal >200 [facility] Comment on above: Result Comment: Nicolle re Pancreatic Insufficiency: <100 Moderate Pancreatic Insufficiency: 100 - 200 Normal: >200 Performed By: #### C PEPT #### [facility] [address] [place], [place] [address] Dr. Stewart De La Cruz POTASSIUM, FECALon 3 Potassium, Stool 57 mmol/L Normal [facility] Comment on above: Result Comment: INTE RPRETIVE INFORMATION: Fecal Potassium A reference interval has not been established for fecal specimens. This test was developed and its performance characteristics determined by [employer]. It has not been cleared or approved by the [place] Food and Drug Administration. This test was performed in a CLIA certified laboratory and is intended for clinical purposes. Performed By: #### C PEPT #### [facility] [address] [place] [address] Dr. Stewart De La Cruz SODIUM, FECALon 09-17-2022 Sodium, Stool 65 mmol/L Normal [facility] Comment on above: Result Comment: INTE RPRETIVE INFORMATION: Fecal Sodium A reference interval has not been established for fecal specimens. This test was developed and its performance characteristics determined by [employer]. It has not been cleared or approved by the [place] Food and Drug Administration. This test was performed in a CLIA certified laboratory and is intended for clinical purposes. Performed By: #### F ECALN #### [facility] [address] [place] [address] Dr. Stewart De La Cruz CALPROTECTIN, FECALon 2022 Calprotectin, Fecal 43 ug/g Normal 0-120 [facility] Comment on above: Result Comment: Conc entration Interpretation Follow-Up <16 - 50 ug/g Normal None >50 -120 ug/g Borderline Re-evaluate in 4-6 weeks >120 ug/g Abnormal Repeat as clinically indicated Performed By: #### C PEPT #### [facility] [address] [place] [address] Dr. Stewart De La Cruz C-PEPTIDE, SERUMon 3 C-Peptide, Serum 6.5 ng/mL Critically high 1.1-4.4 [facility] Comment on above: Result Comment: C-Pe ptide reference interval is for fasting patients. Performed By: #### C PEPT #### [facility] [address] [place] [address] Dr. Stewart De La Cruz HIV 1 AND 2 WITH REFLEXon HIV Screen 4th Generation wRfx Non-Reactive Normal Non Reactive [facility] Comment on above: Result Comment: HIV Negative HIV-1/HIV-2 antibodies and HIV-1 p24 antigen were NOT detected. There is no laboratory evidence of HIV infection. Performed By: #### C PEPT #### [facility] [address] [place] [address] Dr. Stewart De La Cruz INSULINon 09-13-2022 Insulin 13.9 uIU/mL Normal 2.6-24.[address] [facility] Comment on above: Performed By: #### C PEPT #### [facility] [address] [place] [address] Dr. Stewart De La Cruz POTASSIUM, FECALon Potassium, Stool QNSMT Normal [facility] Comment on above: Result Comment: Test not performed. One specimen was submitted with requests for multiple tests. The requested testing requires a separate specimen for each test requested. contacted Keesha at your facility on 09-13-2022 Performed By: #### C PEPT #### [facility] [address] [place] [address] Dr. Stewart De La Cruz SODIUM, FECALon 09-13-2022 Sodium, Stool QNSMT Normal [facility] Comment on above: Result Comment: Test not performed. One specimen was submitted with requests for multiple tests. The requested testing requires a separate specimen for each test requested. contacted Keesha at your facility on 09-13-2022 Performed By: #### F ECALN #### [facility] [address] [place] [address] Dr. Stewart De La Cruz CBC AUTO DIFFon 09-12-2022 BASO # 0.1 103/ul Normal 0.0-0.[address] [facility] Comment on above: Performed By: #### C PEPT #### [facility] [address] [place] [address] Dr. Stewart De La Cruz Basophils/100 WBC (Bld) 1.2 % Normal 0.2-2.[address] [facility] Comment on above: Performed By: #### C PEPT #### [facility] [address] [place] [address] Dr. Stewart De La Cruz EO # 0.3 103/ul Normal 0.0-0.[address] [facility] Comment on above: Performed By: #### C PEPT #### [facility] [address] [place] [address] Dr. Stewart De La Cruz Eosinophils/100 WBC (Bld) 4.5 % Normal 0.9-7.[address] [facility] Comment on above: Performed By: #### C PEPT #### [facility] [address] [place] [address] Dr. Stewart De La Cruz Erythrocyte distribution width (RBC) [Ratio] 12.9 % Normal 11.0-15.[address] [facility] Comment on above: Performed By: #### C PEPT #### [facility] [address] [place] [address] Dr. Stewart De La Cruz Hematocrit (Bld) [Volume fraction] 44.6 % Normal 42.0-54.[address] [facility] Comment on above: Performed By: #### C PEPT #### [facility] [address] [place] [address] Dr. Stewart De La Cruz Hemoglobin (Bld) [Mass/Vol] 14.9 g/dL Normal 14.0-18.[address] [facility] Comment on above: Performed By: #### C PEPT #### [facility] [address] [place] [address] Dr. Stewart De La Cruz IG # 0.03 10e3/ul Normal 0.00-0.[address] [facility] Comment on above: Performed By: #### C PEPT #### [facility] [address] [place] [address] Dr. Stewart De La Cruz IG % 0.5 % Normal 0.0-0.[address] [facility] Comment on above: Performed By: #### C PEPT #### [facility] [address] [place] [address] Dr. Stewart De La Cruz LYMPH # 1.1 103/ul Critically low 1.2-3.8 [facility] Comment on above: Performed By: #### C PEPT #### [facility] [address] [place] [address] Dr. Stewart De La Cruz Lymphocytes/100 WBC (Bld) 18.5 % Critically low 20.5-60.[address] [facility] Comment on above: Performed By: #### C PEPT #### [facility] [address] [place] [address] Dr. Stewart De La Cruz MANUAL DIFF REQ NO Normal [facility] Comment on above: Performed By: #### C PEPT #### [facility] [address] [place] [address] Dr. Stewart De La Cruz MCH (RBC) [Entitic mass] 29.2 pg Normal 25.9-34.0 [facility] Comment on above: Performed By: #### C PEPT #### [facility] [address] [place] [address] Dr. Stewart De La Cruz MCHC (RBC) [Mass/Vol] 33.4 g/dL Normal 29.9-35.2 [facility] Comment on above: Performed By: #### C PEPT #### [facility] [address] [place] [address] Dr. Stewart De La Cruz MCV (RBC) [Entitic vol] 87.5 fL Normal 80.0-94.0 [facility] Comment on above: Performed By: #### C PEPT #### [facility] [address] [place] [address] Dr. Stewart De La Cruz MONO # 0.4 103/ul Normal 0.3-0.8 [facility] Comment on above: Performed By: #### C PEPT #### [facility] [address] [place] [address] Dr. Stewart De La Cruz Monocytes/100 WBC (Bld) 6.8 % Normal 1.7-12.0 [facility] Comment on above: Performed By: #### C PEPT #### [facility] [address] [place] [address] Dr. Stewart De La Cruz NEUT # 4.2 103/ul Normal 1.4-6.5 [facility] Comment on above: Performed By: #### C PEPT #### [facility] [address] [place] [address] Dr. Stewart De La Cruz Neutrophils/100 WBC (Bld) 68.5 % Normal 43.0-75.0 [facility] Comment on above: Performed By: #### C PEPT #### [facility] [address] [place] [address] Dr. Stewart De La Cruz Platelet mean volume (Bld) [Entitic vol] 9.8 fL Normal 9.5-13.5 [facility] Comment on above: Performed By: #### C PEPT #### [facility] [address] [place] [address] [address] Stewart De La Cruz PLT 133 103/ul Critically low 150-[address] [facility] Comment on above: Performed By: #### C PEPT #### [facility] [address] [place] [address] Dr. Stewart De La Cruz RBC 5.10 106/ul Normal 4.70-6.10 [facility] Comment on above: Performed By: #### C PEPT #### [facility] [address] [place] [address] Dr. Stewart De La Cruz WBC 6.1 103/ul Normal 4.0-11.0 [facility] Comment on above: Performed By: #### C PEPT #### [facility] [address] [place] [address] Dr. Stewart De La Cruz CRPon 09-12-2022 CRP [Mass/Vol] mg/L Normal <=1.0 [facility] Comment on above: Performed By: #### C RP #### [facility] [address] [place] [address] Dr. Stewart De La Cruz GLYCOHEMOGLOBIN A1Con 2022 ADA RECOMMENDATION SEE BELOW Normal [facility] Comment on above: Result Comment: ADA RECOMMENDED LIMIT 4.0 - 6.0 ADA THERAPEUTIC TARGET < 7.0 ACTION SUGGESTED > 7.0 Performed By: #### A 1C #### [facility] [facility] [address] [place] [address] Dr. Stewart De La Cruz Glucose [Mass/Vol] 278 mg/dL Normal [facility] Comment on above: Performed By: #### A 1C #### [facility] [address] [place] [address] Dr. Stewart De La Cruz HbA1c (Bld) [Mass fraction] 11.3 % Critically high 4.5-6.2 [facility] Comment on above: Performed By: #### A 1C #### [facility] [address] [place] [address] Dr. Stewart De La Cruz PROF CHEM 8 (BAS METB)on Anion gap [Moles/Vol] 16.9 mmol/L Normal [facility] Comment on above: Performed By: #### C PEPT #### [facility] [address] [address] [address] Stewart De La Cruz Calcium [Mass/Vol] 9.3 mg/dL Normal 8.5-10.1 [facility] Comment on above: Performed By: #### C PEPT #### [facility] [address] [address] [address] Stewart De La Cruz Chloride [Moles/Vol] 103 mmol/L Normal 98-[address] [facility] Comment on above: Performed By: #### C PEPT #### [facility] [address] [address] [address] Stewart De La Cruz CO2 [Moles/Vol] 26.0 mmol/L Normal 21.0-32.0 [facility] Comment on above: Performed By: #### C PEPT #### [facility] [address] [address] [address] Stewart De La Cruz Creatinine [Mass/Vol] 1.43 mg/dL Critically high 0.70-1.[address] [facility] Comment on above: Performed By: #### C PEPT #### [facility] [address] [address] [address] Stewart De La Cruz EGFR-AF SOMALI 60 mL/min/1.73m2 Normal >=60 [facility] Comment on above: Performed By: #### C PEPT #### [facility] [address] [address] [address] Stewart De La Cruz EGFR-NON AF SOMALI 49 mL/min/1.73m2 Critically low >=[address] [facility] Comment on above: Performed By: #### C PEPT #### [facility] [address] [address] [address] Stewart De La Cruz Glucose [Mass/Vol] 293 mg/dL Critically high 74-106 [facility] Comment on above: Performed By: #### C PEPT #### [facility] [address] [address] [address] tSewart De La Cruz Potassium [Moles/Vol] 4.9 mmol/L Normal 3.5-5.[address] [facility] Comment on above: Performed By: #### C PEPT #### [facility] [address] [address] [address] Stewart De La Cruz Sodium [Moles/Vol] 141 mmol/L Normal 136-145 [facility] Comment on above: Performed By: #### C PEPT #### [facility] [address] [address] [address] Stewart De La Cruz Urea nitrogen [Mass/Vol] 32.0 mg/dL Critically high 7.0-18.[address] [facility] Comment on above: Performed By: #### C PEPT #### [facility] [address] [address] [address] Stewart De La Cruz Urea nitrogen/Creatinine [Mass ratio] 22.4 mg/mg Normal [facility] Comment on above: Performed By: #### C PEPT #### [facility] [address] [place] [address] Dr. Stewart De La Cruz [facility] 17 mm/hr Normal <=[address] [facility] Comment on above: Performed By: #### S EDR #### [facility] [address] [address] [address] Stewart De La Cruz RAD EGD - documentation only do not orderon 07-25-2022 RAD EGD - documentation only do not order [email or web address] Other Glucose Glucometer (BldC) [M ass/Vol]Ordered By: Kike Bernal on 07-24-2022 Glucose [Mass/Vol] 275 mg/dL [facility] Comment on above: Random Glucose Refer ence Range is dependent on time and content of last meal. Glucose of more than 200 mg/dL in a nonstressed, ambulatory subject supports the diagnosis of Diabetes Mellitus. GLYCOHEMOGLOBIN A1Con 2021 ADA RECOMMENDATION SEE BELOW Normal [facility] Comment on above: Result Comment: ADA RECOMMENDED LIMIT 4.0 - 6.0 ADA THERAPEUTIC TARGET < 7.0 ACTION SUGGESTED > 7.0 Performed By: #### A 1C #### [facility] [address] [place] [address] Dr. Stewart De La Cruz Glucose [Mass/Vol] 235 mg/dL Normal [facility] Comment on above: Performed By: #### A 1C #### [facility] [address] [address] [address] Stewart De La Cruz HbA1c (Bld) [Mass fraction] 9.8 % Critically high 4.5-6.2 [facility] Comment on above: Performed By: #### A 1C #### [facility] [address] [address] [address] Stewart De La Cruz GLYCOHEMOGLOBIN A1Con 2021 ADA RECOMMENDATION SEE BELOW Normal [facility] Comment on above: Result Comment: ADA RECOMMENDED LIMIT 4.0 - 6.0 ADA THERAPEUTIC TARGET < 7.0 ACTION SUGGESTED > 7.0 Performed By: #### A 1C #### [facility] [address] [place] [address] Dr. Stewart De La Cruz Glucose [Mass/Vol] 197 mg/dL Normal [facility] Comment on above: Performed By: #### A 1C #### [facility] [address] [address] [address] Stewart De La Cruz HbA1c (Bld) [Mass fraction] 8.5 % Critically high 4.5-6.[address] [facility] Comment on above: Performed By: #### A 1C #### [facility] [address] [place] [address] Dr. Stewart De La Cruz PSA, FREE AND TOTAL RATIOon 01-28-2022 % Free PSA 30.0 % Normal [facility] Comment on above: Result Comment: The [...] men. Performed By: #### P SAFREE #### [facility] [address] [place] [address] Dr. Stewart De La Cruz Prostate specific Ag [Mass/Vol] 0.1 ng/mL Normal 0.0-4.[address] [facility] Comment on above: Result Comment: Nina PUCKETT methodology. . According to the [employer], Serum PSA should decrease [...] disease. Performed By: #### P SAFREE #### [facility] [address] [place] [address] Dr. Stewart De La Cruz PSA, Free 0.03 ng/mL Normal N/A [facility] Comment on above: Result Comment: Nina PUCKETT methodology. Performed By: #### P SAFREE #### [facility] [address] [place] [address] Dr. Stewart De La Cruz GLYCOHEMOGLOBIN A1Con 2021 ADA RECOMMENDATION SEE BELOW Normal [facility] Comment on above: Result Comment: ADA RECOMMENDED LIMIT 4.0 - 6.0 ADA THERAPEUTIC TARGET < 7.0 ACTION SUGGESTED > 7.0 Performed By: #### A 1C #### [facility] [address] [place] [address] Dr. Stewart De La Cruz Glucose [Mass/Vol] 192 mg/dL Normal [facility] Comment on above: Performed By: #### A 1C #### [facility] [address] [place] [address] Dr. Stewart De La Cruz HbA1c (Bld) [Mass fraction] 8.3 % Critically high 4.5-6.[address] [facility] Comment on above: Performed By: #### A 1C #### [facility] [address] [place] [address] Dr. Stewart De La Cruz CNOVon 02-01-2021 CNOV Office Visit (RADTSA ) -- MILAD SEYMOUR ([id number]) 1955 M Date Time Provider Department 02/01/21 [...] DIAGNOSIS: Prostate adenocarcinoma, initial PSA 14.65, biopsy [place] score 3 + 3 = 6 (grade [...] ASSESSMENT/PLAN:DIAGNOSIS: Prostate adenocarcinoma, initial PSA 14.65, biopsy [place] score 3 + 3 = 6 (grade [...] Diaz MD cc: Dank Campo MD ([facility]) [address] [place] [address] Dr. Petersen Portions of the above note extracted and edited from previous visit as well as active information included in the EMR. Referring Provider: Fawad DIAZ [[id number]] Allergies As of Date: 02/01/2021 (No Known Allergies) Date Reviewed: 02/01/2021 Reviewed by: Tila Herrera LPN - Fully Assessed Reason for Visit: Prostate Cancer [590] Primary Visit Diagnosis:Malignant neoplasm of prostate (HCC) [C61] Order(s):PSA/PROSTSPECAG DIAG [SQPSA] Order #: [id number] FUTURE Prescriptions as of 02/03/2021 - aspirin, [...] magnesium) t (more content not included)... Normal [facility] PSA, [facility] 01-25-2021 PSA, Diagnostic 0.29 ng/mL Normal 0.00-2.59 [facility] Comment on above: Result Comment: Sandra manzo PSA test methodology used is the Electrochemiluminescence Immunoassay. Performed By: #### P #### [facility] [address] [place], [place] [address] OBSOLETEon 12-22-2020 OBSOLETE Refill (RADTSA) -- MILAD SEYMOUR ([id number]) 1955 M Date Time Provider Department 12/22/20 [...] Encounter Status:Closed by TILA HERRERA on 01/04/21 [facility] CNOVon 11-03-2020 CNOV Office Visit (RADTSA ) -- MILAD ESYMOUR ([id number]) 1955 M Date Time Provider Department 11/03/20 4:00 PM LAB/PORT RADT ADAM COCHRAN During your visit today, we recorded the following information about you: Referring Provider: Fawad DIAZ [[id number]] Allergies As of Date: 11/03/2020 (No Known [...] Encounter Status:Closed by TILA HERRERA on 11/03/20 [facility] CN Office Visit (RADTSA ) -- LIONMILAD Dalal ([id number]) 1955 M Date Time Provider Department 11/03/20 4:00 PM Fawad DIAZ During your visit today, we recorded the following information about you: Temperature Pulse Respiration Blood pressure 97.5 degrees 61/minute 18/minute 145/62 Weight 103 kg Tila Herrera LPN 11/03/2020 4:11 PM Signed AUA=11 G Kurt Diaz MD 11/04/2020 9:44 AM Signed Radiation Oncology - Follow Up Note PATIENT NAME: Milad Seymour PATIENT DIAGNOSIS: DIAGNOSIS: Prostate adenocarcinoma, initial PSA 14.65, biopsy [place] score 3 + 3 = 6 (grade [...] ASSESSMENT/PLAN:DIAGNOSIS: Prostate adenocarcinoma, initial PSA 14.65, biopsy [place] score 3 + 3 = 6 (grade [...] Diaz MD cc: Dank Campo MD ([facility]) [address] [place] [address] [id number] [address] Petersen Referring Provider: Fawad DIAZ [[id number]] Allergies As of Date: 11/03/2020 (No Known Allergies) Date Reviewed: 11/03/2020 Reviewed by: Fawad Diaz MD - Fully Assessed Reason for Visit: Prostate Cancer [590] Primary Visit Diagnosis:Malignant neoplasm of prostate (HCC) [C61] Order(s):PSA/PROSTSPECAG DIAG [SQPSA] Order #: [id number] FUTURE Prescriptions as of 11/03/2020 Sig: TAMSULOSIN [...] 30 mg (more content not included)... Normal [facility] PSA, [facility] 11-01-2020 PSA, Diagnostic 0.27 ng/mL Normal 0.00-2.59 [facility] Comment on above: Result Comment: Sandra manzo PSA test methodology used is the Electrochemiluminescence Immunoassay. Performed By: #### P SA #### [facility] [address] [place], [place] [address] CNPHolly 10-29-2020 CNPN Telephone (RADTSA) -- MILAD SEYMOUR ([id number]) 1955 M Date Time Provider Department 10/29/20 [...] since completing radiation therapy. Call transferred to [facility] to move up appointment. Dr. [...] (HCC) [C61] Order(s):PSA/PROSTSPECAG DIAG [SQPSA] Order #: [id number] FUTURE Prescriptions as of 10/29/2020 Sig: TAMSULOSIN [...] [facility] 10-08-2020 [facility] Telephone (HEMASA) -- MILAD SEYMOUR ([id number]) 1955 M Date Time Provider Department 10/08/20 HEATHER BARRIGA During your visit today, we recorded the following information about you: Allergies As of Date: 10/08/2020 (No Known Allergies) Date Reviewed: 07/14/2020 Reviewed by: Joann Richardson - Fully Assessed Reason for Visit: Lab Orders [2168] Primary Visit Diagnosis:Iron deficiency anemia due to chronic blood loss [D50.0] Order(s):CBC + DIFF (FOR REMOTE [facility] USE) [SQRCBCDF] Order #: [id number] FUTURE COMP METABOLIC PANEL [SQCMP] Order #: [id number] FUTURE Prescriptions as of 10/08/2020 Sig: TAMSULOSIN [...] Encounter Status:Closed by TASHA GOOD on 10/14/20 [facility] OBSOLETEon 09-20-2020 OBSOLETE Refill (RADTSA) -- MILAD SEYMOUR ([id number]) 1955 M Date Time Provider Department 09/20/20 [...] Status:Closed by TILA HERRERA on 10/14/20 Normal [facility] Vital Signs Date Time Vital Sign Value Performing Clinician Facility 2024 15:040 Body height 175.26 cm Dank Campo MD Work Phone: [facility] 2024 15:05040 Body mass index (BMI) [Ratio] 37.6 kg/m2 Dank Campo MD Work Phone: [facility] 2024 15:05040 Body weight 115.66 kg Dank aCmpo MD Work Phone: [facility] 07-31-2024 10:32-0500 Body height 177.8 cm Ashli Petznick DO Work Phone: [facility] 07-31-2024 10:32-0500 Body mass index (BMI) [Ratio] 37.02 kg/m2 Ashli Petznick DO Work Phone: [facility] 07-31-2024 10:32-0500 Body temperature 97.9 [degF] Ashli Petznick DO Work Phone: [facility] 07-31-2024 10:32-0500 Body weight 117.03 kg Ashli Petznick DO Work Phone: [facility] 07-31-2024 10:32-0500 Diastolic blood pressure 70 mm[Hg] Ashli Petznick DO Work Phone: [facility] 07-31-2024 10:32-0500 Heart rate 78 /min Ashli Petznick DO Work Phone: [facility] 07-31-2024 10:32-0500 SaO2% (BldA) [Mass fraction] 97 % Ashli Petznick DO Work Phone: [facility] 07-31-2024 10:32-0500 Systolic blood pressure 108 mm[Hg] Ashli Petznick DO Work Phone: [facility] 07-30-2024 14:11-0500 Body height 175.26 cm [facility] 07-30-2024 14:11-0500 Body mass index (BMI) [Ratio] 38.4 kg/m2 [facility] 07-30-2024 14:11-0500 Body weight 117.93 kg [facility] 05-29-2024 14:51-0500 Body height 177.8 cm Dexter Krishnamurthy DPM Work Phone: [facility] 05-29-2024 14:51-0500 Body mass index (BMI) [Ratio] 36.88 kg/m2 Dexter Krishnamurthy DPM Work Phone: [facility] 05-29-2024 14:51-0500 Body weight 116.57 kg Dexter Yessy BALLARD Work Phone: [facility] 05-28-2024 07:38-0500 Body height 177.8 cm Dank Campo MD Work Phone: [facility] 05-28-2024 07:38-0500 Body mass index (BMI) [Ratio] 36.88 kg/m2 Dank Campo MD Work Phone: [facility] 05-28-2024 07:38-0500 Body temperature 97.11 [degF] Dank Campo MD Work Phone: [facility] 05-28-2024 07:38-0500 Body weight 116.57 kg Dank Campo MD Work Phone: [facility] 05-28-2024 07:38-0500 Diastolic blood pressure 72 mm[Hg] Dank Campo MD Work Phone: [facility] 05-28-2024 07:38-0500 Heart rate 104 /min Dank Capmo MD Work Phone: [facility] 05-28-2024 07:38-0500 Respiratory rate 18 /min Dank Campo MD Work Phone: [facility] 05-28-2024 07:38-0500 SaO2% (BldA) [Mass fraction] 97 % Dank Campo MD Work Phone: [facility] 05-28-2024 07:38-0500 Systolic blood pressure 136 mm[Hg] Dank Campo MD Work Phone: [facility] 04-29-2024 10:46-0500 Body height 177.8 cm Ashli Ross DO Work Phone: [facility] 04-29-2024 10:46-0500 Body mass index (BMI) [Ratio] 35.61 kg/m2 Ashli Ross DO Work Phone: [facility] 04-29-2024 10:46-0500 Body temperature 96.1 [degF] Ashli Petznick DO Work Phone: [facility] 04-29-2024 10:46-0500 Body weight 112.58 kg Ashli Petznick DO Work Phone: [facility] 04-29-2024 10:46-0500 Diastolic blood pressure 78 mm[Hg] Ashli Petznick DO Work Phone: [facility] 04-29-2024 10:46-0500 Heart rate 84 /min Ashli Petznick DO Work Phone: [facility] 04-29-2024 10:46-0500 SaO2% (BldA) [Mass fraction] 97 % Ashli Petznick DO Work Phone: [facility] 04-29-2024 10:46-0500 Systolic blood pressure 124 mm[Hg] Ashli Petznick DO Work Phone: [facility] 04-15-2024 09:08-0400 Body height 175.26 cm [facility] 04-15-2024 09:08-0400 Body mass index (BMI) [Ratio] 36.1 kg/m2 [facility] 04-15-2024 09:08-0400 Body weight 111.13 kg [facility] 04-08-2024 10:00-0400 Body height 177.8 cm Rebecca Dias PA Work Phone: [facility] 04-08-2024 10:00-0400 Body mass index (BMI) [Ratio] 35.73 kg/m2 Rebecca Dias PA Work Phone: [facility] 04-08-2024 10:00-0400 Body weight 112.95 kg Rebecca FREY Work Phone: [facility] 03-18-2024 08:28-0400 Body height 177.8 cm Rebecca Dias PA Work Phone: [facility] 03-18-2024 08:28-0400 Body mass index (BMI) [Ratio] 35.73 kg/m2 Rebecca Dias PA Work Phone: [facility] 03-18-2024 08:28-0400 Body weight 112.95 kg Rebecca FREY Work Phone: [facility] 03-17-2024 10:190400 Body height 175.26 cm [facility] 03-17-2024 10:19-0400 Body mass index (BMI) [Ratio] 37 kg/m2 [facility] 03-17-2024 10:190400 Body weight 114 kg [facility] 02-25-2024 10:29-0400 Body height 175.3 cm Hanna Butcher MD Work Phone: [facility] 02-25-2024 10:29-0400 Body mass index (BMI) [Ratio] 37.01 kg/m2 Hanna Butcher MD Work Phone: [facility] 02-25-2024 10:29-0400 Body weight 113.67 kg Hanna Butcher MD Work Phone: [facility] 02-25-2024 10:29-0400 Diastolic blood pressure 60 mm[Hg] Hanna Butcher MD Work Phone: [facility] 02-25-2024 10:29-0400 Heart rate 77 /min Hanna Butcher MD Work Phone: [facility] 02-25-2024 10:29-0400 SaO2% (BldA) [Mass fraction] 98 % Hanna Butcher MD Work Phone: [facility] 02-25-2024 10:29-0400 Systolic blood pressure 108 mm[Hg] Hanna Butcher MD Work Phone: [facility] 02-04-2024 11:45-0400 Diastolic blood pressure 74 mm[Hg] Peterson PETERSEN [facility] 02-04-2024 11:45-0400 Heart rate 66 /min Peterson PETERSEN [facility] 02-04-2024 11:45-0400 Respiratory rate 16 /min Peterson PETERSEN [facility] 02-04-2024 11:45-0400 Systolic blood pressure 116 mm[Hg] Peterson PETERSEN [facility] 12-13-2023 22:34-0400 Body height 175.[address] 12-13-2023 22:34-0400 Body mass index (BMI) [Ratio] 36.77 kg/m2 [address] 12-13-2023 22:34-0400 Body weight 112.[address] 08-15-2023 13:35-0500 Diastolic blood pressure 60 mm[Hg] Gregoria Kregel 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 Work Phone: [facility] 08-15-2023 13:35-0500 Systolic blood pressure 107 mm[Hg] Gregoria Kregel 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 Work Phone: [facility] 08-15-2023 13:33-0500 Body height 175.3 cm Gregoria Kregel 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 Work Phone: [facility] [employer] [facility] 08-15-2023 13:33-0500 Body mass index (BMI) [Ratio] 36.77 kg/m2 Gregoria Kregel 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 Work Phone: [facility] 08-15-2023 13:33-0500 Body weight 112.95 kg Gregoria Kregel 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 Work Phone: [facility] [employer] [facility] 08-15-2023 13:33-0500 Heart rate 81 /min Gregoria Kregel 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 Work Phone: [facility] 08-15-2023 13:33-0500 SaO2% (BldA) [Mass fraction] 95 % Gregoria Kregel 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 Work Phone: [facility] 07-30-2023 11:16-0500 Body height 177.8 cm Ashli Petznick DO Work Phone: [facility] 07-30-2023 11:16-0500 Body mass index (BMI) [Ratio] 36.16 kg/m2 Ashli Petznick DO Work Phone: [facility] 07-30-2023 11:16-0500 Body temperature 98.01 [degF] Ashli Petznick DO Work Phone: [facility] 07-30-2023 11:16-0500 Body weight 114.31 kg Ashli Petznick DO Work Phone: [facility] 07-30-2023 11:16-0500 Diastolic blood pressure 62 mm[Hg] Ashli Petznick DO Work Phone: [facility] 07-30-2023 11:16-0500 Heart rate 66 /min Ashli Petznick DO Work Phone: [facility] 07-30-2023 11:16-0500 SaO2% (BldA) [Mass fraction] 97 % Ashli Petznick DO Work Phone: [facility] 07-30-2023 11:16-0500 Systolic blood pressure 116 mm[Hg] Ashli Petznick DO Work Phone: [facility] 07-17-2023 09:22-0500 Diastolic blood pressure 73 mm[Hg] MD Dank Campo Work Phone: [facility] 07-17-2023 09:22-0500 Heart rate 70 /min MD Dank Campo Work Phone: [facility] 07-17-2023 09:22-0500 Respiratory rate 18 /min MD Dank Campo Work Phone: [facility] 07-17-2023 09:22-0500 SaO2% (BldA) [Mass fraction] 97 % MD Dank Campo Work Phone: [facility] 07-17-2023 09:22-0500 Systolic blood pressure 173 mm[Hg] MD Dank Campo Work Phone: [facility] 07-17-2023 09:20-0500 Body height 177.8 cm MD Dank Campo Work Phone: [facility] 07-17-2023 09:20-0500 Body weight 111.13 kg MD Dank Campo Work Phone: [facility] 04-27-2023 12:40-0500 Diastolic blood pressure 68 mm[Hg] MD Dank Campo Work Phone: [facility] 04-27-2023 12:40-0500 Heart rate 75 /min MD Dank Campo Work Phone: [facility] 04-27-2023 12:40-0500 Respiratory rate 16 /min MD Dank Campo Work Phone: [facility] 04-27-2023 12:40-0500 SaO2% (BldA) [Mass fraction] 97 % MD Dank Campo Work Phone: [facility] 04-27-2023 12:40-0500 Systolic blood pressure 110 mm[Hg] MD Dank Campo Work Phone: [facility] 04-27-2023 10:29-0500 Body height 177.8 cm MD Dank Campo Work Phone: [facility] 04-27-2023 10:29-0500 Body weight 113.39 kg MD Dank Campo Work Phone: [facility] 04-10-2023 14:00-0400 Body height 177.8 cm Imad Asaad Other [email or web address] Other 04-10-2023 14:00-0400 Body mass index (BMI) [Ratio] 36.3 kg/m2 Imad Asaad Other [email or web address] Other 04-10-2023 14:00-0400 Body weight 114.76 kg Imad Asaad Other [facility] Other 04-10-2023 14:00-0400 Diastolic blood pressure 68 mm[Hg] Imad Asaad Other [facility] Other 04-10-2023 14:00-0400 Systolic blood pressure 113 mm[Hg] Imad Asaad Other [facility] Other 02-12-2023 09:46-0400 Blood Pressure Location Peterson PETERSEN [facility] 02-12-2023 09:46-0400 Diastolic blood pressure 90 mm[Hg] Petersonpercy PETERSEN [facility] 02-12-2023 09:46-0400 Heart rate 68 /min Petersonpercy PETERSEN [facility] 02-12-2023 09:46-0400 Respiratory rate 16 /min Petersonpercy PETERSEN [facility] 02-12-2023 09:46-0400 Systolic blood pressure 138 mm[Hg] Peterson PETERSEN [facility] 07-24-2022 13:52-0500 Diastolic blood pressure 78 mm[Hg] MD Dank Campo Work Phone: [facility] 07-24-2022 13:52-0500 Heart rate 71 /min MD Dank Campo Work Phone: [facility] 07-24-2022 13:52-0500 Respiratory rate 16 /min MD Dank Campo Work Phone: [facility] 02-06-2023 13:52-0500 SaO2% (BldA) [Mass fraction] 96 % MD Dank Campo Work Phone: [facility] 07-24-2022 13:52-0500 Systolic blood pressure 136 mm[Hg] MD Dank Campo Work Phone: [facility] 07-24-2022 12:29-0500 Body height 177.8 cm MD Dank Campo Work Phone: [facility] 07-24-2022 12:29-0500 Body temperature 98 [degF] MD Dank Campo Work Phone: [facility] 07-24-2022 12:29-0500 Body weight 115.66 kg MD Dank Campo Work Phone: [facility] 07-20-2022 10:00-0500 Body height 177.8 cm Imad Asaad Other [employer] [facility] [employer] Other 07-20-2022 10:00-0500 Body mass index (BMI) [Ratio] 36.73 kg/m2 Imad Asaad Other [email or web address] Other 07-20-2022 10:00-0500 Body weight 116.12 kg Imad Asaad Other [email or web address] Other 07-20-2022 10:00-0500 Diastolic blood pressure 96 mm[Hg] Imad Asaad Other [email or web address] Other 07-20-2022 10:00-0500 Systolic blood pressure 170 mm[Hg] Imad Asaad Other [email or web address] Other 02-03-2022 08:29-0400 Blood Pressure Location Peterson PETERSEN [facility] 02-03-2022 08:29-0400 Diastolic blood pressure 88 mm[Hg] Peterson PETERSEN [facility] 02-03-2022 08:29-0400 Heart rate 75 /min Peterson PETERSEN [facility] 02-03-2022 08:29-0400 Respiratory rate 16 /min Peterson PETERSEN [facility] 02-03-2022 08:29-0400 Systolic blood pressure 138 mm[Hg] Peterson PETERSEN [facility] Encounters Encounter Date Encounter Type Care Provider Facility Start: 02-09-2025 ambulatory Peterson PETERSEN Facili ty:[facility] Start: 2024 End: 2024 ambulatory Dank Campo MD Work Phone: [facility] Work Phone: Start: 2024 End: 2024 Patient encounter procedure [facility]ank Camp[facility] MD [facility]: Start: 08-04-2024 End: 08-04-2024 ambulatory Roma Lopez MD Facility: [facility] Start: 07-31-2024 End: 07-31-2024 ambulatory ASHLI ROSS Not Available Start: 07-31-2024 End: 07-31-2024 Office outpatient visit 25 minutes Ashli Ross DO Work Phone: [facility] 230 Comment on above: Class 2 severe obesi ty due to excess calories with serious comorbidity and body mass index (BMI) of 37.0 to 37.9 in adult (CMS/[facility]) (Primary Dx); Type 2 diabetes mellitus with diabetic polyneuropathy, with long-term current use of insulin (CMS/[facility]); Type 2 diabetes mellitus with stage 3b chronic kidney disease, with long-term current use of insulin (HCC) ([facility]); Type 2 diabetes mellitus with hyperglycemia, with long-term current use of insulin ([facility]) Start: 07-30-2024 End: 07-30-2024 ambulatory Dank Campo MD Work Phone: [facility] Work Phone: Start: 07-30-2024 End: 07-30-2024 Patient encounter procedure [facility] Work Phone: Start: 07-23-2024 End: 07-23-2024 Bamboo [...] 07-21-2024 End: 07-21-2024 Bamboo flowsheet Kaden Sparks DROSSER [facility] Start: 07-21-2024 End: 07-21-2024 Bamboo flowsheet Kaden Sparks DROSS[facility] Start: 07-21-2024 End: 07-21-2024 ambulatory Roma Lopez MD Facility: [facility] Start: 07-14-2024 End: 07-14-2024 ambulatory Roma Lopez MD Facility: [facility] Start: 07-07-2024 End: 07-07-2024 Bamboo flowsheet Maureen Thompson DROSS[facility] Start: 07-07-2024 End: 07-07-2024 Bamboo flowsheet Maureen Thompson DROSS[facility] Start: 07-07-2024 End: 07-07-2024 ambulatory Maureen Thompson [facility] Comment on above: Left [...] 06-26-2024 End: 06-26-2024 Bamboo flowsheet Kaden Sparks DROSSER [facility] Start: 06-26-2024 End: 06-26-2024 Bamboo flowsheet Kaden Sparks DROSS[facility] Start: 06-26-2024 End: 06-26-2024 ambulatory Kaden Sparks DROSS[facility] Comment on above: Left shoulder pain, unspecified chronicity (Primary Dx); S/P arthroscopy of left shoulder Start: 06-25-2024 End: 06-25-2024 ambulatory REBECCA DIAS Not Available Start: 06-25-2024 End: 06-25-2024 Postop follow up visit related to original px Rebecca Dias PA Work Phone: [facility] Comment on above: S/P arthroscopy of l eft shoulder (Primary Dx) Start: 06-24-2024 End: 06-24-2024 ambulatory Amla Berkowitz PT [facility] Comment on [...] ORTHOPAEDICS Start: 06-05-2024 End: 06-05-2024 ambulatory Nanda Camachoyunier DROSSER [facility] Comment on above: Left shoulder pain, unspecified chronicity (Primary Dx); S/P arthroscopy of left shoulder Start: 06-03-2024 End: 06-03-2024 Telephone encounter Dank Campo MD Work Phone: [facility] Start: 06-02-2024 End: 06-02-2024 Bamboo flowsheet Kaden Sparks DROSSER [facility] Start: 06-02-2024 End: 06-02-2024 Bamboo flowsheet Kaden Sparks DROSSER [facility] Start: 06-02-2024 End: 06-02-2024 ambulatory Kaden Sparks DROSS[facility] Comment on above: Left shoulder pain, unspecified chronicity (Primary Dx); S/P arthroscopy of left shoulder Start: 05-29-2024 End: 05-29-2024 Office outpatient visit 25 minutes Dexter BURRM Work Phone: [facility] Comment on above: Contusion of left fo ot, initial encounter (Primary Dx); Pain in left foot; Diabetic polyneuropathy associated with type 2 diabetes mellitus (CMS/HCC); Encounter for long-term (current) use of insulin (CMS/HCC) Start: 05-29-2024 End: 05-29-2024 Bamboo flowsheet Valentine Geller PT Work Phone: [facility] Start: 05-29-2024 End: 05-29-2024 Bamboo flowsheet Valentine Geller PT Work Phone: [facility] Start: 05-29-2024 End: 05-29-2024 ambulatory Valentine Geller PT Work Phone: [facility] Comment [...] 05-26-2024 End: 05-26-2024 Bamboo flowsheet Kaden Sparks DROSSER [facility] Start: 05-26-2024 End: 05-26-2024 Bamboo flowsheet Kaden Sparks DROSSER [facility] Start: 05-26-2024 End: 05-26-2024 ambulatory Kaden Sparks DROSS[facility] Comment on above: S/P arthroscopy of l eft shoulder (Primary Dx); Left shoulder pain, unspecified chronicity Start: 05-19-2024 End: 05-19-2024 ambulatory Kaden Sparks DROSSER [facility] Comment on above: S/P arthroscopy of l eft shoulder (Primary Dx) Start: 05-13-2024 End: 05-13-2024 ambulatory ALMA BERKOWITZ Not Available Start: 05-13-2024 End: 05-13-2024 ambulatory Alma Berkowitz PT [facility] Comment on above: S/P arthroscopy of l eft shoulder (Primary Dx) Start: 05-12-2024 End: 05-12-2024 Telephone encounter Valentine Geller PT Work Phone: [facility] Comment on above: PO PT Eval (Tried to contact to schedule PO PT Eval for L shoulder scope, that was on 04/25; requested a call back dolores.); Call Back (He contacted and we scheduled PT Eval 05/13 and then continued out 2x/2's a week up to 06/05/24.) Start: 05-09-2024 End: 05-09-2024 Bamboo flowsheet Rebecca Dias PA Work Phone: [facility] Start: 05-09-2024 End: 05-09-2024 Bamboo flowsheet Rebecca Dias PA Work Phone: [facility] Start: 05-09-2024 End: 05-09-2024 Postop follow up visit related to original px Rebecca FREY Work Phone: [facility] Comment on above: S/P arthroscopy of l eft shoulder (Primary Dx) Start: 05-09-2024 End: 05-09-2024 ambulatory REBECCA DIAS Not Available Start: 04-29-2024 End: 04-29-2024 Office outpatient visit 25 minutes Ashli Ross DO Work Phone: [facility] 230 Comment on above: Class 2 severe obesi ty due to excess calories with serious comorbidity and body mass index (BMI) of 35.0 to 35.9 in adult ([facility]) (Primary Dx); Type 2 diabetes mellitus with diabetic polyneuropathy, with long-term current use of insulin ([facility]); Type 2 diabetes mellitus with stage 3a chronic kidney disease, with long-term current use of insulin (HCC) (CMS/HCC); Long-term insulin use (CMS/HCC) Start: 04-29-2024 End: 04-29-2024 ambulatory ASHLI Scott CODY Not Available Start: 04-24-2024 End: 04-24-2024 Refill Fredy Boswell NP Work Phone: [facility] Comment on above: Internal derangement of left shoulder (Primary Dx) Start: 04-23-2024 End: 04-23-2024 Telephone encounter Dank Campo MD Work Phone: [facility] Start: 04-21-2024 End: 04-21-2024 ambulatory Roma Lopez MD Facility:[facility] Start: 04-18-2024 End: 04-18-2024 Clinisync Result Encounter Generic External Data Provider [facility] External Department Unsolicited Start: 04-18-2024 End: 04-18-2024 Clinisync Result Encounter Generic External Data Provider [facility] External Department Unsolicited Start: 04-15-2024 End: 04-15-2024 ambulatory [facility] Work Phone: Start: 04-15-2024 End: 04-15-2024 Patient encounter procedure [facility] Work Phone: Start: 04-08-2024 End: 04-08-2024 Bamboo flowsheet Rebecca FREY Work Phone: [facility] Start: 04-08-2024 End: 04-08-2024 Bamboo flowsheet Rebecca FREY Work Phone: [facility] Start: 04-08-2024 End: 04-08-2024 Patient encounter procedure Rebecca FREY Work Phone: [facility] Comment on above: Pre-op examination ( Primary Dx); Preop examination Start: 04-08-2024 End: 04-08-2024 Preprocedural examination done Rebecca FREY Work Phone: [facility] Work Phone: Start: 04-08-2024 End: 04-08-2024 ambulatory REBECCA DIAS Not Available Start: 03-24-2024 End: 03-25-2024 Refill Fredy Boswell DEWER Work Phone: [facility] Comment on above: Internal derangement of left shoulder (Primary Dx) Start: 03-18-2024 End: 03-18-2024 Bamboo flowsheet Rebecca Dias PA Work Phone: [facility] Start: 03-18-2024 End: 03-18-2024 Bamboo flowsheet Rebecca Dias PA Work Phone: [facility] Start: 03-18-2024 End: 03-18-2024 External Result Encounter Rebecca FREY Work Phone: [facility] External Department Unsolicited Start: 03-18-2024 End: 03-18-2024 Orders Only Rebecca FREY Work Phone: [facility] Comment on above: Encounter for other preprocedural examination Start: 03-18-2024 End: 03-18-2024 Patient encounter status Rebecca FREY Work Phone: [facility] Start: 03-18-2024 End: 03-18-2024 Telephone encounter Rebecca Dias PA Work Phone: [facility] Start: 03-18-2024 Encounter for other preprocedural examination [facility] Start: 03-18-2024 End: 03-18-2024 Patient encounter procedure Rebecca FREY Work Phone: [facility] Comment on above: Preop examination (P rimary Dx) Start: 03-18-2024 End: 03-18-2024 Preprocedural examination done Rebecca FREY Work Phone: [facility] Start: 03-18-2024 End: 03-18-[address] [facility] Start: 03-17-2024 End: 03-17-2024 Telephone encounter Ashli Ross DO Work Phone: [facility] 230 Start: 03-17-2024 End: 03-17-2024 ambulatory [facility] Work Phone: Start: 03-17-2024 End: 03-17-2024 Patient encounter procedure [facility] Work Phone: Start: 03-12-2024 End: 03-12-[address] [facility] Start: 03-10-2024 End: 03-10-2024 ambulatory Roma Lopez MD Facility:[facility] Start: 03-03-2024 End: 03-03-2024 Office outpatient visit 25 minutes Jr. Johanne Hdez DO Work Phone: [facility] Comment on above: Internal derangement of left shoulder (Primary Dx); Acute pain of left shoulder Start: 03-03-2024 End: 03-03-2024 ambulatory JOHANNE MURILLO Not Available Start: 03-03-2024 End: 03-03-2024 Bamnasir Hdez DO Work Phone: [facility] Start: 03-03-2024 End: 03-03-2024 Bambomaryjane flowsheet Jr. Johanne Vidales Stepcharlie DO Work Phone: [facility] Start: 02-28-2024 End: 02-28-2024 Telephone encounter Hanna Butcher MD Work Phone: [facility] Start: 02-25-2024 End: 02-25-2024 Office outpatient visit 15 minutes Hanna Butcher MD Work Phone: [facility] Comment on above: Obstructive sleep ap toñito syndrome (Primary Dx); Personal history of tobacco use, presenting hazards to health Start: 02-25-2024 End: 02-25-2024 ambulatory HANNA BUTCHER [facility] Start: 02-04-2024 End: 02-04-2024 Telephone encounter Dexter Krishnamurthy DP Work Phone: [facility] Comment on above: Advice Only (Self Pa y Shoes) Start: 02-04-2024 End: 02-04-2024 ambulatory Peterson PETERSEN Facility:[facility] Start: 02-04-2024 End: 02-04-2024 Patient encounter procedure Peterson PETERSEN [facility] Start: 01-31-2024 End: 01-31-2024 ambulatory ASHLI ROSS Not Available Start: 01-28-2024 End: 01-28-2024 ambulatory Peterson PETERSEN Facility:[facility] Start: 01-28-2024 End: 01-28-2024 Patient encounter procedure Peterson PETERSEN [facility] Start: 01-03-2024 End: 01-03-2024 Telephone encounter Oskar Contreras MD Work Phone: [facility] Start: 12-13-2023 End: 12-15-2023 ambulatory GREGORIA [employer] Comment on above: Obstructive sleep ap toñito syndrome; CSA (central sleep apnea) Start: 12-06-2023 End: 12-06-2023 Orders Only Gregoria [employer] 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-[employer]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 [employer] Work Phone: [facility] Comment on above: Obstructive sleep ap toñito syndrome (Primary Dx) Start: 12-05-2023 End: 12-05-2023 Telephone encounter Aliza Escalera [facility] Start: 12-05-2023 End: 12-05-2023 ambulatory DANK CAMPO Not Available Start: 11-22-2023 End: 11-22-2023 ambulatory DEXTER KRISHNAMURTHY Not Available Start: 11-14-2023 End: 11-14-2023 ambulatory DANK NADERER Not Available Start: 11-05-2023 End: 11-05-2023 ambulatory Roma Lopez MD Facility: [facility] Start: 10-31-2023 End: 10-31-2023 ambulatory DEXTER KRISHNAMURTHY Not Available Start: 10-30-2023 End: 10-30-2023 ambulatory Jyoti Roth Facility:[facility] Start: 10-30-2023 End: 10-30-2023 ambulatory ASHLI M CODY Not Available Start: 10-17-2023 End: 10-17-2023 ambulatory DEXTER KRISHNAMURTHY Not Available Start: 10-15-2023 End: 10-15-2023 ambulatory [facility] Start: 10-11-2023 End: 10-11-2023 ambulatory DANK CAMPO Not Available Start: 10-09-2023 End: 10-09-2023 ambulatory JYOTI ROTH Not Available Start: 10-01-2023 End: 10-01-2023 ambulatory Roma Lopez MD Facility: [facility] Start: 09-27-2023 End: 09-27-2023 ambulatory DEXTER KRISHNAMURTHY Not Available Start: 09-05-2023 End: 09-05-2023 ambulatory DEXTER PRETTYHER Not Available Start: 08-29-2023 End: 08-29-2023 ambulatory DANK CAMPO Not Available Start: 08-27-2023 Telephone encounter Aliza Escalera [facility] Start: 08-23-2023 End: 08-23-2023 ambulatory GREGORIA Manzo [facility] Start: 08-22-2023 End: 08-23-2023 ambulatory GREGORIA L [facility] Start: 08-20-2023 End: 08-20-2023 ambulatory Dank Washingtonerer Facility:[facility] Start: 08-17-2023 Telephone encounter 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 [employer] Work Phone: [facility] - Sleep Disorders Comment on above: Sleep Lab (CPAP) Start: 08-15-2023 End: 08-15-2023 Office outpatient visit 25 minutes 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 [employer] Work Phone: [facility] Comment on above: Personal history of tobacco use, presenting hazards to health (Primary Dx); Obstructive sleep apnea syndrome; CSA (central sleep apnea) Start: 08-15-2023 End: 08-15-2023 ambulatory GREGORIACORTNEY RALPH [facility] Start: 08-09-2023 End: 08-09-2023 Patient encounter procedure MD Dank Campo Work Phone: [facility] [facility] Work Phone: Start: 08-09-2023 End: 08-09-2023 ambulatory MD Dank Capmo Work Phone: [facility] Work Phone: Start: 08-09-2023 End: 08-09-2023 ambulatory DEXTER KRISHNAMURTHY Not Available Start: 08-02-2023 Telephone encounter Al[facility] Start: 08-01-2023 Chart abstracting [...] 36.9 in adult ([facility]) (Primary Dx); Type 2 diabetes mellitus with diabetic polyneuropathy, with long-term current use of insulin ([facility]) Start: 07-24-2023 End: 07-24-2023 Patient encounter procedure MD Dank Camop Work Phone: [facility] [place] Work Phone: Start: 07-17-2023 End: 07-17-2023 ambulatory MD Dank Campo Work Phone: [facility] Work Phone: Start: 07-17-2023 End: 07-17-2023 Patient encounter procedure MD Dank Campo Work Phone: [facility] [place] Work Phone: Start: 06-26-2023 End: 06-26-2023 ambulatory MD Dank Campo Work Phone: [facility] Work Phone: Start: 06-26-2023 End: 06-26-2023 Patient encounter procedure MD Dank Campo Work Phone: [facility]-MRI [address] Work Phone: Start: 04-27-2023 End: 04-27-2023 Admission to same day surgery center MD Dank Campo Work Phone: [facility] Work Phone: Start: 04-27-2023 End: 04-27-2023 ambulatory MD Dank Campo Work Phone: [facility] Work Phone: Start: 04-10-2023 End: 04-10-2023 ambulatory Imad Asaad Other [email or web address] Other Start: 04-10-2023 Office outpatient ne w 45 minutes Imad Asaad [facility] Start: 03-20-2023 End: 03-20-2023 ambulatory Imad Asaad Other [email or web address] Other Start: 03-20-2023 Telephone encounter Imad Asaad [facility] Start: 02-12-2023 End: 02-12-2023 ambulatory Peterson PETERSEN Facility:[facility] Start: 02-12-2023 End: 02-12-2023 Patient encounter procedure Peterson PETERSEN [facility] Start: 02-06-2023 End: 02-06-2023 Lab Drop off ROSALVA MURO [facility] Start: 02-06-2023 End: 02-06-2023 ambulatory ROSALVA MURO [facility] Start: 02-06-2023 End: 02-06-2023 Patient encounter procedure [facility] Start: 10-17-2022 End: 10-18-[address] DANK CAMPO Facility:[facility] Start: 09-20-2022 End: 09-20-2022 ambulatory Imad Asaad Other [email or web address] Other Start: 09-20-2022 Telephone encounter Imad Asaad [facility] Start: 09-14-2022 End: 09-14-[address] DANK CAMPO Facility:[facility] Start: 09-12-2022 End: 09-13-[address] DANK CAMPO Facility:[facility] Start: 07-24-2022 Telephone encounter Imad Asaad [facility] Start: 07-24-2022 End: 07-24-2022 Admission to same day surgery center MD Dank Campo Work Phone: [facility] Work Phone: Start: 07-24-2022 End: 07-24-2022 ambulatory MD Dank Campo Work Phone: [facility] Work Phone: Start: 07-20-2022 End: 07-20-2022 ambulatory Imad Asaad Other [email or web address] Other Start: 07-20-2022 Patient encounter procedure Imad Asaad [facility] Start: 05-10-2022 End: 05-11-[address] DANK CAMPO Facility:[facility] Start: 04-14-2022 End: 04-15-[address] SORIN SHORE Facility:[facility] Start: 02-03-2022 End: 02-03-2022 Patient encounter procedure Peterson PETERSEN [facility] Start: 01-30-2022 End: 01-31-2022 ambulatory MR REBECCA DIAS . Facility:[facility] Start: 01-27-2022 End: 01-28-[address] PETERSON PETERSEN . Facility:[facility] Procedures Date Procedure Procedure Detail Performing Clinician Start: 07-31-2024 Hemoglobin glycosylated a1c Ashli Sonia Cassius green DO Work Phone: Start: 07-30-2024 Supine abdominal X-ray Dank Campo MD Work Phone: Start: 05-29-2024 Radex foot complete minimum 3 views Dexter Krishnamurthy DPM Work Phone: Start: 04-29-2024 Hemoglobin glycosylated a1c Ashli Sonia Cassius green DO Work Phone: Start: 04-18-2024 ALL CBC WITH AUTO DIFF Generic External Data Provider Start: 03-18-2024 Complete blood count with white cell differential, automated Rebecca FREY Work Phone: Start: 02-25-2024 Follow-up visit Follow-up HANNA BUTCHER Start: 07-30-2023 Hemoglobin glycosylated a1c Ashli Sonia Cassius green DO Work Phone: Start: 07-24-2023 [...] 04-27-2033 Screening for malignant neoplasm of colon [facility] Start: 01-20-2031 DTaP,Tdap and Td Vaccines (3 - Td or Tdap) DTaP,Tdap and Td Vaccines (3 - Td or Tdap) [facility] Start: 02-10-2030 Screening for malignant neoplasm of colon [facility] Start: 08-27-2025 Glaucoma screening Diabetes: Retinopathy Screening [facility] Start: 02-24-2025 Adult BMI Screening Adult BMI Screening [facility] Start: 02-24-2025 Tobacco Screening Tobacco Screening [facility] Start: 12-12-2024 Adult BMI Screening Adult BMI Screening [facility] Start: 10-30-2024 End: 10-30-2024 Patient encounter procedure 10/30/2024 11:15 AM EDT Office Visit [facility] [address] [place] [address] Ashli Ross, [address] [place] [address] [facility] Start: 10-28-2024 Hemoglobin A1c measurement Diabetes: Hemoglobin A1C [facility] Start: 09-03-2024 Urine screening for protein Diabetes: Urine Protein Screening [facility] Start: 08-27-2024 End: 08-27-2024 Patient encounter procedure 08/27/2024 7:30 AM EDT Office Visit [facility] [address] [place] [address] Dank Campo MD [address] [place] [address] [facility] Start: 08-22-2024 End: 08-22-2024 ambulatory 08/22/2024 8:00 AM EST Treatment [facility] [address] [place] [address] Alma Berkowitz, PT [facility] Start: 08-18-2024 End: 08-18-2024 ambulatory 08/18/2024 7:30 AM EST Treatment [facility] [address] [place] [address] Kaden Sparks, DROSSER [facility] Start: 08-15-2024 Adult BMI Screening Adult BMI Screening [facility] Start: 08-15-2024 Tobacco Screening Tobacco Screening [facility] Start: 08-14-2024 End: 08-14-2024 ambulatory 08/14/2024 8:00 AM EST Treatment [facility] [address] [place] [address] Alma Berkowitz, PT [facility] Start: 08-11-2024 End: 08-11-2024 ambulatory 08/11/2024 7:30 AM EST Treatment [facility] [address] [place] [address] Kaden Sparks, DROSSER [facility] Start: 08-07-2024 End: 08-07-2024 ambulatory 08/07/2024 8:00 AM EST Treatment [facility] [address] [place] [address] Alma Berkowitz, PT [facility] Start: 08-04-2024 End: 08-04-2024 ambulatory 08/04/2024 7:30 AM EST Treatment [facility] [address] [place] [address] Kaden Sparks, DROSSER [facility] Start: 07-31-2024 End: 07-31-2024 Patient encounter procedure 07/31/2024 10:30 AM EST Office Visit [facility] [address] [place] [address] Ashli Ross, [address] [place] [address] [facility] Start: 07-31-2024 End: 07-31-2024 ambulatory 07/31/2024 8:00 AM EST Treatment [facility] [address] [place] [address] Kaden Sparks, DROSSER [facility] Start: 07-30-2024 Hemoglobin A1c measurement Diabetes: Hemoglobin A1C [facility] Start: 07-28-2024 End: 07-28-2024 ambulatory [facility] Start: 07-24-2024 End: 07-24-2024 ambulatory 07/24/2024 8:00 AM EST Treatment [facility] [address] [place] [address] Alma Berkowitz, PT [facility] Start: 07-23-2024 End: 07-23-2024 Patient encounter procedure 07/23/2024 9:15 AM EST Office Visit [facility] [address] [place] [id number] Rebecca Dias, PA [address] [place] [address] [facility] Start: 07-21-2024 End: 07-21-2024 ambulatory 07/21/2024 8:00 AM EST Treatment [facility] [address] [place] [address] Kaden Sparks, DROSSER [facility] Start: 07-16-2024 End: 07-16-2024 ambulatory 07/16/2024 8:00 AM EST Treatment [facility] [address] [place] [address] Kaden Sparks, DROSSER [facility] Start: 07-14-2024 End: 07-14-2024 Patient encounter procedure 07/14/2024 2:00 PM EST Office Visit [facility] [place] [address] Hanna Butcher MD [address] [facility] [address] [place] [address] [facility] Start: 07-01-2024 End: 07-01-2024 ambulatory 07/01/2024 9:00 AM EST Treatment [facility] [address] [place] [address] Alma Berkowitz, PT [facility] Start: 06-26-2024 End: 06-26-2024 ambulatory 06/26/2024 9:00 AM EST Treatment [facility] [address] [place] [address] Kaden Sparks, DROSSER [facility] Start: 06-25-2024 End: 06-25-2024 Patient encounter procedure 06/25/2024 8:45 AM EST Office Visit [facility] [address] [place] [id number] Rebecca Dias, PA [address] [place] [address] [facility] Start: 06-24-2024 End: 06-24-2024 ambulatory 06/24/2024 9:00 AM EST Treatment [facility] [address] [place] [address] Alma Berkowitz, PT [facility] Start: 06-20-2024 End: 06-20-2024 ambulatory 06/20/2024 8:00 AM EST Treatment [facility] [address] [facility] [address] [place] [address] Justina Carrillo, PT [address] [place] [address] [facility] Start: 06-16-2024 End: 06-16-2024 ambulatory 06/16/2024 10:00 AM EST Treatment [facility] [address] [facility] [address] [place] [address] Alma Berkowitz, PT [facility] Start: 06-06-2024 End: 06-06-2024 Patient encounter procedure 06/06/2024 9:00 AM EST Office Visit [facility] [address] [place] [phone] Rebecca Dias, PA [address] [facility] [address] [place] [address] [facility] Start: 06-05-2024 End: 06-05-2024 ambulatory [facility] Start: 06-02-2024 End: 06-02-2024 ambulatory 06/02/2024 12:00 PM EST Treatment [facility] [address] [facility] [address] [place] [address] Kaden Sparks, LINO [facility] Start: 05-29-2024 End: 05-29-2024 Patient encounter procedure 05/29/2024 2:45 PM EST Office Visit [facility] [address] [place] [phone] Dexter Krishnamurthy DPM [address] [place] [address] [facility] Start: 05-29-2024 End: 05-29-2024 ambulatory [facility] Start: 05-28-2024 End: 05-28-2024 Patient encounter procedure [facility] Comment on above: Arrived Start: 05-26-2024 End: 05-26-2024 ambulatory 05/26/2024 10:00 AM EST Treatment [facility] [address] [place] [address] Kaden Sparks, DROSSER [facility] Start: 05-22-2024 End: 05-22-2024 ambulatory [facility] Start: 05-19-2024 End: 05-19-2024 ambulatory 05/19/2024 7:00 AM EST Treatment [facility] [address] [place] [address] Kaden Sparks, DROSSER [facility] Start: 05-13-2024 End: 05-13-2024 ambulatory 05/13/2024 9:30 AM EST Evaluation [facility] [address] [place] [address] Alma Berkowitz, PT [facility] Start: [...] olyneuropathy, with long-term current use of insulin ([facility]) Start: 04-08-2024 End: 04-08-2024 Patient encounter procedure [facility] Comment on above: Pre-op examination (Primary Dx) Start: 03-25-2024 End: 03-25-2024 Patient encounter procedure 03/25/2024 1:30 PM EDT Procedure Visit [facility] Jr. Johanne Hdez DO [address] [place] [address] [facility] Start: 03-18-2024 End: 03-13-2025 Basic metabolic 1998 panel - Serum or Plasma Basic metabolic panel Lab Routine Preop examination Expected: 03/18/2024 (Approximate), Expires: 03/13/2025 [facility] 2nd Watch Work Phone: Comment on above: Expected: 03/18/2024 (Approximate), Expi res: 03/13/2025 Start: 03-18-2024 End: 03-18-2025 Basic metabolic 2000 panel - Serum or Plasma Basic Metabolic Panel Lab Routine Encounter for other preprocedural examination Expected: 03/18/2024, Expires: 03/18/2025 [facility] Work Phone: Comment on above: Expected: 03/18/2024, Expires: Start: 03-18-2024 End: 03-18-2025 CBC W Auto Differential panel - Blood [facility] Comment on above: Expected: 03/18/2024 (Approximate), Expi res: 03/13/2025 Expected: 03/18/2024 , Expires: 03/18/2025 Start: 03-18-2024 End: 03-13-2025 Prothrombin time (PT) in Blood by Coagulation assay Protime-INR Lab Routine Preop examination Expected: 03/18/2024 (Approximate), Expires: 03/13/2025 [facility] 2nd Watch Comment on above: Expected: 03/18/2024 (Approximate), Expi res: 03/13/2025 Start: 03-18-2024 End: 03-18-2025 Protime & INR Protime & INR Lab Routine Encounter for other preprocedural examination Expected: 03/18/2024, Expires: 03/18/2025 [facility] Work Phone: Comment on above: Expected: 03/18/2024, Expires: Start: 03-18-2024 Subsequent hospital visit by physician 03/18/2024 9:07 AM EDT Hospital Encounter [facility] [address] [place] [phone] Arrived [facility] Comment on above: Arrived Start: 03-18-2024 End: 03-18-2024 Patient encounter procedure [facility] Comment on above: Preop examination Start: 03-03-2024 End: 03-03-2024 Patient encounter procedure 03/03/2024 2:30 PM EDT Office Visit [facility] [address] [place] [phone] Jr. Johanne Hdez C, DO [address] [place] [address] Arrived [facility] Comment on above: Arrived Start: 02-25-2024 End: 02-24-2025 CT Chest for screening WO contrast CT low dose lung screening (Annual) Imaging Routine Personal history of tobacco use, presenting hazards to health Expected: 02/25/2024, Expires: 02/24/2025 [email or web address] Phone: Comment on above: Expected: 02/25/2024, Expires: Start: 02-25-2024 End: 02-25-2024 Patient encounter procedure [facility] Start: 02-17-2024 COVID-19 Vaccine ( season) COVID-19 Vaccine ( season) [facility] Start: 02-17-2024 Influenza vaccination [facility] Start: 12-13-2023 End: 12-13-2023 Clinical Support 12/13/2023 8:00 PM EDT [facility] [address] [place] [address] [facility] Start: 11-19-2023 End: 11-19-2023 Clinical Support 11/19/2023 8:00 PM EDT Clinical Support [facility] [address] [place], [place] [address]OC[address] [place] [address] [facility] Start: 10-29-2023 End: 10-29-2023 Patient encounter procedure 10/29/2023 1:15 PM EDT Office Visit [facility] [address] [place] [phone] Ashli Ross, [address] [place] [address] [facility] [address] Start: 10-28-2023 Hemoglobin A1c measurement Diabetes: Hemoglobin A1C [facility] Start: 08-29-2023 End: 08-29-2023 Patient encounter procedure 08/29/2023 7:45 AM EDT Office Visit [facility] [address] [place] [address] Dank Campo MD [address] [place] [phone] [facility] Start: 08-23-2023 End: 08-23-2023 Patient encounter procedure [facility] Start: 08-15-2023 End: 08-15-2024 CT Chest for screening WO contrast CT low dose lung screenin (3mo 6mo follow-up) Imaging Routine Personal history of tobacco use, presenting hazards to health Expected: 08/15/2023, Expires: 08/15/2024 [employer] Work Phone: Comment on above: Expected: 08/15/2023, Expires: Start: 08-15-2023 End: 08-15-2024 Echo complete W/O contrast Echo complete W/O contrast Echocardiography Routine Obstructive sleep apnea syndrome CSA (central sleep apnea) Expected: 08/15/2023, Expires: 08/15/2024 [facility] Comment on above: Expected: 08/15/2023, Expires: Start: 08-09-2023 End: 08-09-2023 Patient encounter procedure 08/09/2023 8:30 AM EST Office Visit [facility] [address] [place] [phone] Dexter Krishnamurthy, ENLLIE [address] [place], [place] [phone] [facility] Start: 08-01-2023 End: 08-01-2023 Patient encounter procedure 08/01/2023 10:30 AM EST Office Visit [facility] [address] [place] [phone] Jr. Johanne Hdez, DO [address] [place] [address] [facility] Start: 04-27-2023 [facility] Start: 04-11-2023 Administration of varicella zoster vaccine Zoster (Shingles) Vaccine (3 of 3) [facility] Start: 02-16-2023 COVID-19 Vaccine ( season) COVID-19 Vaccine ( season) [facility] Start: 02-16-2023 COVID-19 Vaccine ( season) COVID-19 Vaccine ( season) [facility] Start: 02-16-2023 Influenza vaccination Influenza Vaccine [facility] Start: 07-24-2022 [facility] Start: 04-15-2022 Adult BMI Screening Adult BMI Screening [facility] Start: 09-15-2020 Abdominal aortic aneurysm screening Abdominal Aortic Aneurysm (AAA) Screen [facility] Start: 09-15-2020 Fall Risk Screening Fall Risk Screening [facility] Start: 09-15-1974 Urine screening for protein Diabetes: Urine Protein Screening [facility] Start: 09-15-1973 Adult BMI Follow Up Plan Adult BMI Follow Up Plan [facility] Start: 1967 Depression Screening Depression Screening [facility] Start: 1967 Tobacco Screening Tobacco Screening [facility] Start: 09-15-1965 Glaucoma screening Diabetes: Retinopathy Screening [facility] Start: 1955 Medicare Annual Wellness (AWV) Medicare Annual Wellness (AWV) [facility] Start: 1955 Medicare Annual Wellness Visit Medicare Annual Wellness Visit [facility] Start: 1955 Screening for malignant neoplasm of colon [facility] Patient Education [facility] Work Phone: End: 08-15-2024 Polysomnography 4 or more parameters with PAP titration Polysomnography 4 or more parameters with PAP titration Sleep Center Routine Obstructive sleep apnea syndrome CSA (central sleep apnea) 1 Occurrences starting 08/15/2023 until 08/15/2024 [facility] [facility] Comment on above: 1 Occurrences starting 08/15/2023 until 08/15/2024 Supine abdominal X-ray [facility] XR Shoulder - left 2 Views XR shoulder 2+ views left Imaging Routine Acute pain of left shoulder 03/03/2024 2:47 PM EDT [facility] Work Phone: Immunizations Immunization Date Immunization Notes Care Provider Fa preston 02-28-2024 ABRYSVO - Respirator y syncytial virus (RSV), vaccine, bivalent, protein subunit RSV prefusion F, diluent reconstituted, 0.5 mL, PF Ashli Petznick DO Work Phone: [facility] 02-28-2024 influenza, high dose seasonal, preservative-free Ashli Petznick DO Work Phone: [facility] 02-28-2024 influenza virus vaccine, unspecified formulation Jr. Stepanic DO Work Phone: [facility] 04-22-2023 zoster vaccine recombinant Ashli Petznick DO Work Phone: [facility] 03-23-2023 RSV, recombinant, protein subunit RSVpreF, adjuvant reconstitu, 120mcg/0.5mL, PF (Arexvy) Ashli Petznick DO Work Phone: [facility] 02-14-2023 influenza virus vaccine, unspecified formulation Peterson PETERSEN [facility] 02-14-2023 Influenza, Seasonal, Quadrivalent, Adjuvanted Ashli Petznick DO Work Phone: [facility] 02-14-2023 zoster vaccine recombinant Ashli Petznick DO Work Phone: [facility] 02-14-2023 zoster vaccine, unspecified formulation [facility] 04-09-2022 COVID-19 mRNA Bivale nt Booster (Pfizer) MD Dank Campo Work Phone: [facility] 04-09-2022 influenza virus vaccine, unspecified formulation 2080 [employer] [facility] 04-09-2022 Influenza, Seasonal, Quadrivalent, Adjuvanted Ashli Petznick DO Work Phone: [facility] 04-13-2021 COVID-19 mRNA, Comirnaty (Pfizer) MD Dank Campo Work Phone: [facility] 02-22-2021 influenza virus vaccine, unspecified formulation Peterson Danforth [employer] [facility] 02-22-2021 Influenza, Seasonal, Quadrivalent, Adjuvanted Ashli Petznick DO Work Phone: [facility] 02-22-2021 pneumococcal polysaccharide vaccine, 23 valent Ashli Petznick DO Work Phone: [facility] 02-16-2021 pneumococcal conjuga te vaccine, 13 valent 2080 [employer] [facility] 01-20-2021 tetanus and diphther ia toxoids, adsorbed, preservative free, for adult use (5 Lf of tetanus toxoid and 2 Lf of diphtheria toxoid) Imad Asaad Other [email or web address] Other 01-20-2021 tetanus and diphther ia toxoids, adsorbed, preservative free, for adult use (2 Lf of tetanus toxoid and 2 Lf of diphtheria toxoid) Peterson Danforth [employer] [facility] 01-17-2021 influenza virus vaccine, unspecified formulation Peterson Danforth [employer] [facility] 01-17-2021 influenza, seasonal, injectable Ashli Petznick DO Work Phone: [facility] 01-17-2021 Moderna SARS-CoV-2 Vaccination Ashli Petznick DO Work Phone: [facility] 10-16-2020 SARS-CoV-2 (COVID-19 ) mRNA BNT-162b2 vax Peterson PETERSEN [facility] 10-01-2020 COVID-19 mRNAAlfred (Pfizer) MD Dank Campo Work Phone: [facility] 09-08-2020 COVID-19 mRNAAlfred (Pfizer) MD Dank Campo Work Phone: [facility] 02-17-2020 influenza virus vaccine, unspecified formulation [employer]80 [employer] [facility] 02-17-2020 influenza, injectabl e, quadrivalent, preservative free Ashli Petznick DO Work Phone: [facility] 02-09-2020 influenza, high dose seasonal, preservative-free Ashli Petznick DO Work Phone: [facility] 03-15-2019 influenza virus vaccine, unspecified formulation Peterson PETERSEN [facility] 03-15-2019 influenza, injectabl e, quadrivalent, preservative free Ashli Petznick DO Work Phone: [facility] 02-25-2018 influenza virus vaccine, unspecified formulation Peterson [employer]forth [employer] [facility] 02-25-2018 influenza, injectabl e, quadrivalent, preservative free Ashli Petznick DO Work Phone: [facility] 05-30-2017 pneumococcal conjuga te vaccine, 13 valent Ashli Petznick DO Work Phone: [facility] 05-30-2017 pneumococcal polysaccharide vaccine, 23 valent Ashli Petznick DO Work Phone: [facility] 03-02-2017 influenza nasal, unspecified formulation Ashli Petznick DO Work Phone: [facility] 03-02-2017 influenza virus vaccine, unspecified formulation 2080 [employer] [facility] 03-02-2017 influenza, injectabl e, quadrivalent, preservative free Ashli Petznick DO Work Phone: [facility] 03-05-2016 influenza virus vaccine, unspecified formulation Peterson Danforth [employer] [facility] 03-05-2016 influenza, injectabl e, quadrivalent, preservative free Ashli Petznick DO Work Phone: [facility] 03-05-2016 influenza, seasonal, injectable Ashli Petznick DO Work Phone: [facility] 02-18-2015 zoster vaccine, live Ashli Petznick DO Work Phone: [facility] 02-01-2015 influenza virus vaccine, unspecified formulation [employer]80 [employer] [facility] 02-01-2015 influenza, seasonal, injectable Ashli Petznick DO Work Phone: [facility] 08-18-2014 tetanus toxoid, redu inocencio diphtheria toxoid, and acellular pertussis vaccine, adsorbed Ashli Petznick DO Work Phone: [facility] 08-04-2013 pneumococcal conjuga te vaccine, 13 valent Ashli Petznick DO Work Phone: [facility] Payers Date Payer Category Payer Self-pay [id number] 2023 Unknown [id number] 2021 Medicare (Managed Care) KT YUAN [id number] 2020 Medicare [id number]. 1.13.693. [id number] 2013 Unknown [id number]. 1.13.424. 2.7.3.446752.315 1959 Medicare [id number] 1955 Unknown [id number] 2.16840.1.122839.3.579. 2.593 1955 Unknown [id number] 2.16.840.1.973678.3.579. 2.593 1955 Unknown [id number] 2.16.840.1.325211.3.579. 2.593 1955 Unknown [id number] 2.16.840.1.147886.3.579. 2.593 1955 Unknown [id number] 2.16.840.1.962372.3.579. 2.593 1955 Unknown [id number] 2.16.840.1.284162.3.579. 2.593 1955 Unknown [id number] 2.16.840.1.245031.3.579. 2.593 1955 Unknown [id number] 2.16.840.1.732381.3.579. 2.593 1955 Unknown [id number] 2.16.840.1.897184.3.579. 2.1286 1955 Unknown [id number] 2.16.840.1.390684.3.579. 2.727 1955 Unknown [id number] 2.16.840.1.737730.3.579. 2.727 1955 Unknown [id number] 2.16.840.1.501938.3.579. 2.727 1955 Unknown [id number] 2.16.840.1.898393.3.579. 2.727 1955 Unknown [id number] 2.16.840.1.299889.3.579. 2.72 1955 Unknown [id number] 2.16.840.1.778858.3.579. 2.727 1955 Unknown [id number] 2.16.840.1.560429.3.579. 2.1285 1955 Unknown [id number] 2.16.840.1.100007.3.579. 2.128 1955 Unknown [id number] 2.16.840.1.583407.3.579. 2.1285 1955 Unknown [id number] 2.16.840.1.738396.3.579. 2.128 1955 Unknown [id number] 2.16.840.1.526278.3.579. 2.128 1955 Unknown [id number] 2.16.840.1.012881.3.579. 2.1286 1955 Unknown [id number] 2.16.840.1.651884.3.579. 2.1259 1955 Unknown [id number] 2.16.840.1.520022.3.579. 2.1259 1955 Unknown [id number] 2.16.840.1.007823.3.579. 2.1259 1955 Unknown [id number] 2.16.840.1.059365.3.579. 2.1258 1955 Unknown [id number] 2.16.840.1.480018.3.579. 2.1258 1955 Unknown [id number] 2.16.840.1.756702.3.579. 2.1258 1955 Unknown [id number] 2.16.840.1.167336.3.579. 2.1258 1955 Unknown [id number] 2.16.840.1.245493.3.579. 2.1258 1955 Unknown [id number] 2.16.840.1.311989.3.579. 2.1258 1955 Unknown [id number] 2.16.840.1.015633.3.579. 2.1258 1955 Unknown [id number] 2.16.840.1.578170.3.579. 2.1258 1955 Unknown [id number] 2.16.840.1.397505.3.579. 2.1258 1955 Unknown [id number] 2.16.840.1.845144.3.579. 2.1258 1955 Unknown [id number] 2.16.840.1.796468.3.579. 2.1258 1955 Unknown [id number] 2.16.840.1.409801.3.579. 2.1258 1955 Unknown [id number] 2.16.840.1.868879.3.579. 2.1258 1955 Unknown [id number] 2.16.840.1.752675.3.579. 2.1258 1955 Unknown [id number] 2.16.840.1.497178.3.579. 2.1258 1955 Unknown [id number] 2.16.840.1.076610.3.579. 2.1259 1955 Unknown [id number] 2.16.840.1.245509.3.579. 2.1258 1955 Unknown [id number] 2.16.840.1.378156.3.579. 2.1258 1955 Unknown [id number] 2.16.840.1.886761.3.579. 2.1258 1955 Unknown [id number] 2.16.840.1.790249.3.579. 2.1258 1955 Unknown [id number] 2.16.840.1.073310.3.579. 2.1258 1955 Unknown [id number] 2.16.840.1.775256.3.579. 2.1258 1955 Unknown [id number] 2.16.840.1.462813.3.579. 2.1258 1955 Unknown [id number] 2.16.840.1.513027.3.579. 2.1258 1955 Unknown [id number] 2.16.840.1.391097.3.579. 2.1258 1955 Unknown [id number] 2.16.840.1.588323.3.579. 2.1258 1955 Unknown [id number] 2.16.840.1.869027.3.579. 2.1258 1955 Unknown [id number] 2.16.840.1.492057.3.579. 2.1258 1955 Unknown [id number] 2.16.840.1.107363.3.579. 2.1258 1955 Unknown [id number] 2.16.840.1.798739.3.579. 2.1258 1955 Unknown [id number] 2.16.840.1.765901.3.579. 2.1258 1955 Unknown [id number] 2.16.840.1.386748.3.579. 2.1259 1955 Unknown [id number] 2.16.840.1.582763.3.579. 2.1258 1955 Unknown [id number] 2.16.840.1.804311.3.579. 2.9 1955 Unknown [id number] 2.16.840.1.412592.3.579. 2.1259 1955 Unknown [id number] 2.16.840.1.993679.3.579. 2.196 1955 Unknown [id number] 2.16.840.1.818954.3.579. 2.196 1955 Unknown [id number] 2.16.840.1.069980.3.579. 2.196 1955 Unknown [id number] 2.16840.1.826347.3.579. 2.196 1955 Unknown [id number] 2.16.840.1.674717.3.579. 2.196 1955 Unknown [id number] 2.16.840.1.353400.3.579. 2.196 1955 Unknown [id number] 2.16.840.1.725278.3.579. 2.196 1955 Unknown [id number] 2.16840.1.858221.3.579. 2.196 Medicare Medicare [id number] Unknown [place] [employer]/BS [id number] Unknown Regular Insurance [id number] Unknown [id number] 2.16.840.1.923364.3.579. 2.531 Unknown [id number] 2.16.840.1.254980.3.579. 2.531 Unknown [id number] 2.16.840.1.925862.3.579. 2.531 Unknown [id number] 2.16.840.1.402898.3.579. 2.531 Unknown [id number] 2.16.840.1.610917.3.579. 2.531 Worker's Compensation [employer] [id number] Worker's Compensation [id number] Social History Date Type Detail Facility Start: 02-03-2022 End: 08-20-2023 Ex-smoker (finding) [facility] Start: 06-29-2020 End: 01-09-2023 Male [facility] Start: 1955 Sex Assigned At Male [facility] Start: 06-18-1974 End: 2021 History of [...] to any clubs or organizations such as congregation groups, unions, fraternal or athletic groups, or [...] Not on file N [facility] Start: 07-30-2024 End: 2024 Sex Male (finding) [facility] Start: 08-16-2023 End: 02-25-2024 Alcoholic beverage intake Current non-drinker of alcohol (finding) [facility] Start: 12-22-2020 Tobacco smoking stat [facility] Medical Equipment Procedure Code Equipment Code Equipment Origin al Text Equipment Identifier Dates EGD (esophagogastroduod enoscopy) Video capsule endoscopy system [id number] -[id number]-B FDA Start: 08-18-2020 [id number] Start: 09-19-2022 use to test BLOO D SUGAR THREE TIMES DAILY [id number] Start: 09-19-2022 use to test BLOO D SUGAR THREE TIMES DAILY [id number] Start: 11-01-2022 USE DIRECTED FOUR TIMES DAILY [id number] Start: 02-21-2024 Fsbs bid [id number] Start: 12-17-2023 USE DIRECTED FOUR TIMES DAILY [id number] Start: 11-21-2023 USE DIRECTED FOUR TIMES DAILY [id number] Start: 06-05-2024 Swifadi 4.75 - Sna - [id number] Start: 12-10-2017 Incv/Swivelock 4.75 Use [id number] - Sna - [id number] Start: 07-19-2020 Goals Date Patient Goal Desired Activity /State Personal health goal Comment on above: Formatting of this n ote might be different from the original. Evaluation of progress towards goal: Home self care with childrens support Functional Status Date Assessment Result Facility 02-04-2024 Functional Status N/A [facility] 02-12-2023 Functional Status N/A [facility] 02-03-2022 N/A [facility] Clinical Notes 11-04-2020 to 07-31-2024 Ashli Ross, DO - 07/31/2024 1:15 PM Lida Ross, DO - 07/31/2024 10:30 AM EST Note Date & Type Note Facility 07-31-2024 History of Presen t illness Narrative Associated Problem(s): Type 2 diabetes mellitus with diabetic polyneuropathy, with long-term current use of insulin ([facility]) During the appointment today all [...] exam: Due Current concerns include: July 14 steroid shots in his back by Pain [...] hypotension Osteoarthritis of knee Benign essential hypertension (CMS/HCC) Primary osteoarthritis, right shoulder Prostate cancer (CMS/HCC) Proteinuria Hypercholesteremia (CMS/HCC) Renal failure 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, with long-term current use of insulin (CMS/HCC) Long-term insulin use (CMS/HCC) Lumbar spondylosis Bilateral leg edema Encounter for long-term (current) use of medications Class 2 severe obesity due to excess calories with serious comorbidity and body mass index (BMI) of 37.0 to 37.9 in adult ([facility]) FRANK (obstructive sleep apnea) Chronic fatigue Right hand pain Hypersomnia Fasciculations Memory impairment Bilateral carpal tunnel syndrome Foot drop, right Lumbar radiculopathy Cervical radiculopathy Family history of Parkinson's disease JARAD (generalized anxiety disorder) ([facility]) Type 2 diabetes mellitus with stage 3b chronic kidney disease, with long-term current use of insulin ([facility]) ([facility]) Type 2 diabetes mellitus with hyperglycemia, with long-term current use of insulin ([facility]) Social History Tobacco Use Smoking status: Former [...] SOPN) Semaglutide 1 mg Weekly [place] [facility] [place]EMO[place] A1C/HEMOGLOBIN.TOTAL:MFR:PT:BLD:QN: 9.4 Outpatient prescription Medication marked as long-term The ASCVD Risk score (Carlos DK, et al., 2019) failed to calculate for [...] use of insulin ([facility]) During the appointment today all [...] (BMI) of 37.0 to 37.9 in adult ([facility]) - Primary Type 2 diabetes mellitus with stage 3b chronic kidney disease, with long-term current use of insulin ([facility]) ([facility]) Type 2 diabetes mellitus with hyperglycemia, with long-term current use of insulin ([facility]) Follow up in about 3 [...] and 300 mg before bedtime. GLUCOSE BLOOD (SkyriderUCH ULTRA) TEST STRIP Fsbs bid LANCETS (TacatìTOUCH DELICA PLUS [id number]) MISC use to test BLOOD SUGAR THREE [...] the patient today. documented in this encounter [facility] 07-30-2024 Evaluation note Diagnosis Onset Date Resolution GERD (gastroesophageal reflux disease) acute July 30 2:05pm IBS (irritable bowel syndrome) acute July 30 2:05pm [facility] Work Phone: [phone]) 838-256402-05-2025 History of Present illness Narrative* TK Cantu - 07/23/2024 9:15 AM EST Images from the original note were not included. HISTORY OF PRESENT ILLNESS: POST OP PT Milad Seymour is an 68 y.o. @ male. No surgery found s/p surgery onNo surgery found (EST PT) S/P (L) SHOULDER SCOPE 04/25/24 (12WKS 5DAYS) - DOING WELL- DISCONTINUED PT [facility] ; STATES HE IS ABLE TO [...] for requiring urgent evaluation. documented in this encounterUniversity Health Truman Medical [id number] History of Present illness Narrative* Alma Berkowitz, [...] pillow removed. No complaints of pain. Precautions: [place] Subjective: Pt states he was consistently icing [...] to be instructed in home exercise program. Network Architect Goals: To be met in 10 weeks [...] Please sign below. Date: documented in this encounterUniversity Health Truman Medical CenterOeqmtgxvsa08-57-2038 History of Present illness Narrative* TK Cantu [...] STRENGTHENING CONTINUES PHYSICAL THERAPY (10 SESSIONS) @[facility] NOTES SOME DISCOMFORT ANTERIOR SHOULDER- PT ICES/IBUPROFEN- [...] for requiring urgent evaluation. documented in this encounterUniversity Health Truman Medical [id number] History of Present illness Narrative* Alma Berkowitz, [...] pillow removed. No complaints of pain. Precautions: [place] Subjective: Pt states he has noticed a [...] to be instructed in home exercise program. Network Architect Goals: To be met in 10 weeks [...] Please sign below. Date: documented in this encounterUniversity Health Truman Medical C[id number] History of Present illness Narrative* Justina Carrillo, [...] pillow removed. No complaints of pain. Precautions: [place] Subjective: No significant pain coming in today. [...] to be instructed in home exercise program. Network Architect Goals: To be met in 10 weeks [...] Please sign below. Date: documented in this encounterUniversity Health Truman Medical CenterPczijzoeqt10-09-1113 History of Present illness Narrative* Alma Berkowitz, [...] pillow removed. No complaints of pain. Precautions: [place] Subjective: Pt states he was a little [...] to be instructed in home exercise program. Long-Term Goals: To be met in 10 weeks [...] Please sign below. Date: documented in this encounterUniversity Health Truman Medical [id number] History of Present illness Narrative* Alma Berkowitz, PT - 06/12/2024 9:00 AM EST Images [...] pillow removed. No complaints of pain. Precautions: [place] Subjective: Pt states pain is minimal in [...] to be instructed in home exercise program. Network Architect Goals: To be met in 10 weeks [...] Please sign below. Date: documented in this encounterUniversity Health Truman Medical [id number] Telephone encounter Note* Telephone Encounter - TK Cantu - 06/07/2024 8:34 AM EST Spoke with pt. May DC sling.. Start AROM/ PROM,. No strengthening or resistance... keep therapy going pending follow up.. pt feels he is doing well and making progress [facility] [id number] Miscellaneous Notes* Telephone Encounter - TK Cantu - 06/07/2024 8:34 AM EST Spoke with pt. May DC sling.. Start AROM/ PROM,. No strengthening or resistance... keep therapy going pending follow up.. pt feels he is doing well and making progress documented in this [facility]12-17-2024 Telephone encounter Note* Telephone Encounter - Dank Campo MD - 06/03/2024 9:58 AM EST Patient left message about prozac dose. Dose increased to 40 mg last week and script was sent to [facility]. It will take 2-3 weeks to notice an improvement in mood and continue at 40 mg. [facility] [id number] Miscellaneous Notes* Telephone Encounter - Dank Campo MD - 06/03/2024 9:58 AM EST Patient left message about prozac dose. Dose increased to 40 mg last week and script was sent to [facility]. It will take 2-3 weeks to notice an improvement in mood and continue at 40 mg. documented in this [facility]12-12-2024 History of Present illness Narrative* Dexter Krishnamurthy DPM - 05/29/2024 2:45 PM EST Images [...] days, Disp: 9 each, Rfl: 3 Drug [place] Unifine Pentips 31G X 5 MM misc, [...] by mouth, Disp: , Rfl: glucose blood (IIZI groupTouch Ultra) test strip, Fsbs bid, Disp: 200 each, Rfl: 3 insulin glargine (Lantus SoloStar) 100 UNIT/ML pen, Inject 65 Units under the skin at bedtime, Disp: 60 mL, Rfl: 3 insulin lispro (HumaLOG) 100 UNIT/ML injection, INJECT 12 UNITS BREAKFAST, 25 UNITS LUNCH/ DINNER PLUS CORRECTIONS OF 1:30 > 150MG/DL ( MAX 100 UNITS A DAY), Disp: 90 mL, Rfl: 3 Lancets (IIZI groupTouch Delica Plus [id number]) misc, use to test BLOOD SUGAR THREE TIMES [...] 07/2020 Right PCR ROTATOR CUFF REPAIR Bilateral [id number] Roxanne Crowell ROTATOR CUFF REPAIR 04/2024 SHOULDER ARTHROSCOPY [...] understanding. Dexter Krishnamurthy DPM documented in this [facility]12-12-2024 Instructions* Patient Instructions* Dexter Krishnamurthy DPM - 05/29/2024 2:45 PM EST As noted documented in this [facility]12-12-2024 History of Present illness Narrative* Valentine Geller, PT - 05/29/2024 9:00 AM EST Physical [...] pillow removed. No complaints of pain. Precautions: [place] Subjective: Pt reports he has probably using [...] to be instructed in home exercise program. Long-Term Goals: To be met in 10 weeks [...] Please sign below. Date: documented in this encounterUniversity Health Truman Medical [id number] History of Present illness Narrative* Dank Campo MD - 05/28/2024 8:21 AM ESTAssociated Problem(s): Type 2 diabetes mellitus with stage 3b chronic kidney disease, with long-term current use of insulin ([facility]) ([facility]) Renal function stable. Continue lisinopril and ozempic. * Dank Campo MD - 05/28/2024 8:19 AM ESTAssociated Problem(s): Type 2 diabetes mellitus with diabetic polyneuropathy, with long-term current use of insulin ([facility]) BS improving and follow up with endo. * Dank Campo MD - 05/28/2024 8:19 AM ESTAssociated Problem(s): Lumbar spondylosis Pain starting to worsen and follow with pain management. Continue celebrex. * Dank Campo MD - 05/28/2024 8:18 AM ESTAssociated Problem(s): JARAD (generalized anxiety disorder) (CMS/HCC) Worsening symptoms and increase prozac. Warned will take 2-3 weeks to notice improvement in mood. Use valium PRN. * Dank Campo MD - 05/28/2024 8:18 AM ESTAssociated Problem(s): Benign essential hypertension (CMS/HCC) BP controlled and monitor PRN. Discussed DASH [...] use of insulin ([facility]) BS improving and follow up with endo. Lumbar spondylosis Pain starting to worsen and follow with pain management. Continue celebrex. Relevant Medications tiZANidine (Zanaflex) 4 MG tablet JARAD (generalized anxiety disorder) ([facility]) Worsening symptoms and increase prozac. Warned will take 2-3 weeks to notice improvement in mood. Use valium PRN. Relevant Medications FLUoxetine (PROzac) 40 MG capsule documented in this encounterUniversity Health Truman Medical [id number] Telephone encounter Note* Telephone Encounter - Slime Sanches - 05/12/2024 1:40 PM EST $35.00 copay / prior-auth needed. [facility] [id number] Miscellaneous Notes* Telephone Encounter - Slime Sanches - 05/12/2024 1:40 PM EST $35.00 copay / prior-auth needed. documented in this encounterUniversity Health Truman Medical [id number] History of Present illness Narrative* TK Cantu [...] for requiring urgent evaluation. documented in this [facility]11-22-2024 Instructions* Patient Instructions* TK Cantu - [...] schedule as soon aspossible documented in this [facility]11-12-2024 History of Present illness Narrative* Ashli Ross DO - 04/29/2024 11:31 AM ESTAssociated Problem(s): Type 2 diabetes mellitus with diabetic polyneuropathy, with long- term current use of insulin ([facility]) During the appointment today all [...] hypotension Osteoarthritis of knee Benign essential hypertension ([facility]) Primary osteoarthritis, right shoulder Prostate cancer ([facility]) Proteinuria Hypercholesteremia ([facility]) Renal failure 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, with long-term current use of insulin ([facility]) Long-term insulin use ([facility]) Class 2 severe obesity due to excess calories with serious comorbidity and body mass index (BMI) of35.0 to 35.9 in adult ([facility]) Lumbar spondylosis Bilateral leg edema Encounter for long-term (current) use of medications Obesity (BMI 30-39.9) FRANK (obstructive sleep apnea) Chronic fatigue Right hand pain Hypersomnia Fasciculations Memory impairment Bilateral carpal tunnel syndrome Foot drop, right Lumbar radiculopathy Cervical radiculopathy Family history of Parkinson's disease JARAD (generalized anxiety disorder) ([facility]) Type 2 diabetes mellitus with stage 3a chronic kidney disease, with long-term current use of insulin ([facility]) ([facility]) Social History Tobacco Use Smoking [...] use of insulin ([facility]) During the appointment today all [...] A1C) docked device (Completed) Long-term insulin use ([facility]) Class 2 severe obesity due to excess calories with serious comorbidity and body mass index (BMI) of35.0 to 35.9 in adult ([facility]) - Primary Type 2 diabetes mellitus with stage 3a chronic kidney disease, with long-term current use of insulin ([facility]) ([facility]) Follow up in about 3 [...] eveningand 10 mg before bedtime. [facility] SYLVIA PENTIPS 31G X 5 MM MISC USE [...] MG CAPSULE Take by mouth GLUCOSE BLOOD (SkyriderUCH ULTRA) TEST STRIP Fsbs bid LANCETS (TacatìTOUCH DELICA PLUS [id number]) MISC use to test BLOOD SUGAR THREE [...] with the patient today. documented in this [facility]11-07-2024 Telephone encounter Note* Telephone Encounter - Fredy Boswell NP - 04/24/2024 2:50 PM EST Post op pain rx. PDMP reviewed [place] [id number] Miscellaneous Notes* Telephone Encounter - Fredy Boswell NP - 04/24/2024 2:50 PM EST Post op pain rx. PDMP reviewed documented in this [facility]11-06-2024 Telephone encounter Note* Telephone Encounter - Dank Campo MD - 04/23/2024 12:24 PM EST BP very low and patient having symptoms. Decrease lisinopril to once a day and continue to monitor. [place] [id number] Miscellaneous Notes* Telephone Encounter - Dank Campo MD - 04/23/2024 12:24 PM EST BP very low and patient having symptoms. Decrease lisinopril to once a day and continue to monitor. documented in this [facility]10-22-2024 History of Present illness Narrative* TK Cantu [...] Hypertension (CMS/HCC) Iron Infusions on going per [facility] , Low back pain Migraine (CMS/HCC) Otitis [...] 07/2020 Right PCR ROTATOR CUFF REPAIR Bilateral [id number] Wendy Crowell ROTATOR CUFF REPAIR SHOULDER ARTHROSCOPY [...] 10 mg, Oral, 3 times daily Drug [place] Sylvia Pentips 31G X 5 MM misc USE DIRECTED FOUR TIMES DAILY fluorometholone (FML) 0.1 % ophthalmic suspension instill 1 (ONE) DROP IN BOTH EYES FOUR TIMES DAILY FOR 7 DAYS then instill 1 (ONE) DROP IN BOTH EYES TWICE DAILY FOR 7 DAYS FLUoxetine (PROZAC) 20 mg, Oral, Daily gabapentin (Neurontin) 100 MG capsule Oral glucose blood (Artisan Mobileuch Ultra) test strip Fsbs bid insulin lispro (HumaLOG) 100 UNIT/ML injection INJECT 5-10 UNITS BREAKFAST, 30 UNITS LUNCH/ DINNER PLUS CORRECTIONS OF 1:30 > 150MG/DL ( MAX 100 UNITS A DAY) Lancets (IIZI groupTouch Delica Plus [id number]) [facility] use to test BLOOD SUGAR THREE TIMES [...] SX INSTRUCTIONS GIVEN TODAY 04/08 @8:15AM - [place] DR. CAMPO CLEARANCE ; OBTAINED ULTRASLING GIVEN AT PRIOR APPT [facility] NOTIFIED PA APPROVED ([id number]) Follow up for 05/09 @9am w/tish in [place]. documented in this encounterUniversity Health Truman Medical [id number] Telephone encounter Note* Telephone Encounter - Jr. Johanne Hdez DO - 03/25/2024 8:05 AM EDT Case cancelled as he took aspirin and celebrex [facility] Work Phone: [phone]) 234-865910-08-2024 Miscellaneous Notes* Telephone Encounter - Jr. Johanne Hdez DO - 03/25/2024 8:05 AM EDT Case cancelled as he took aspirin and celebrex * Telephone Encounter - Fredy Boswell NP - 03/24/2024 6:38 PM EDT Post op pain rx. PDMP reviewed documented in this encounterUniversity Health Truman Medical [id number] Telephone encounter Note* Telephone Encounter - Fredy Boswell NP - 03/24/2024 6:38 PM EDT Post op pain rx. PDMP reviewed [facility] [id number] Telephone encounter Note* Telephone Encounter - TK Cantu - 03/18/2024 2:20 PM EDT Reviewed Pre-op labs.. Abdnormal renal function and potassium level. Labs in chart... Dr. Campo..are you willing to address? [facility] Work Phone: [phone]) 717-700410-01-2024 Miscellaneous Notes* Telephone Encounter - TK Cantu - 03/18/2024 2:20 PM EDT Reviewed Pre-op labs.. Abdnormal renal function and potassium level. Labs in chart... Dr. Campo..are you willing to address? documented in this encounterUniversity Health Truman Medical [id number] History of Present illness Narrative* TK Cantu [...] Hypertension (CMS/HCC) Iron Infusions on going per [facility] , Low back pain Migraine ([facility]/HCC) Otitis externa Prostate cancer ([facility]/HCC) 2018 radiation PVC (premature ventricular contraction) Right shoulder pain Rotator cuff tear, right 2020 Sleep apnea PAST SURGICAL HISTORY: Past Surgical History: Procedure Laterality Date APPENDECTOMY 1970 CHOLECYSTECTOMY COLONOSCOPY COLONOSCOPY 2016 EGD GALLBLADDER SURGERY 03/2021 HEEL SPUR SURGERY Right 2011 [place] KNEE SURGERY x2 arthroscopy OTHER SURGICAL HISTORY 07/31/2017 RM and T-tube, Timmis OTHER SURGICAL HISTORY Right 07/2020 Right PCR ROTATOR CUFF REPAIR Bilateral [id number] Wendy Crowell ROTATOR CUFF REPAIR SHOULDER ARTHROSCOPY [...] mg, Oral, 3 times daily PRN Drug [place] Unifine Pentips 31G X 5 MM misc USE DIRECTED FOUR TIMES DAILY fluorometholone (FML) 0.1 % ophthalmic suspension instill 1 (ONE) DROP IN BOTH EYES FOUR TIMES DAILY FOR 7 DAYS then instill 1 (ONE) DROP IN BOTH EYES TWICE DAILY FOR 7 DAYS FLUoxetine (PROZAC) 20 mg, Oral, Daily glucose blood (OneTouch Ultra) test strip Fsbs bid insulin lispro (HumaLOG) 100 UNIT/ML injection INJECT 5-10 UNITS BREAKFAST, 30 UNITS LUNCH/ DINNER PLUS CORRECTIONS OF 1:30 > 150MG/DL ( MAX 100 UNITS A DAY) Lancets (IIZI groupTouch Delica Plus [id number]) [facility] use to test BLOOD SUGAR THREE TIMES [...] SX INSTRUCTIONS GIVEN TODAY 03/18 @8:30AM - [place] ULTRASLING GIVEN TODAY [facility] NOTIFIED PA APPROVED ([id number]) Patient presents today for fitting of left [...] Brace was dispensed to the patient and [employer] Patient Agreement was completed and signed. Warranty information was given and explained to the patient with good understanding. Proper care and fitting was also explained to the patient with good understanding. Follow up for 04/08 @9am w/tish in [place]. documented in this encounterUniversity Health Truman Medical [id number] Telephone encounter Note* Telephone Encounter - Ashli [...] visit andhe was waiting on patient assistance. [facility] [id number] Miscellaneous Notes* Telephone Encounter - Ashli Ross, [...] waiting on patient assistance. documented in this encounterUniversity Health Truman Medical [id number] History of Present illness Narrative* Jr. Johanne [...] 03/03/24 XRAY CHANGE 04/30/23 CT ARTHROGRAM 07/24/23 [facility] TRIED MRI; UNABLE TO DUE TO CLAUSTROPHOBIA [...] mg, Oral, 3 times daily PRN Drug [place] Sylvia Pentips 31G X 5 MM misc USE DIRECTED FOUR TIMES DAILY fluorometholone (FML) 0.1 % ophthalmic suspension instill 1 (ONE) DROP IN BOTH EYES FOUR TIMES DAILY FOR 7 DAYS then instill 1 (ONE) DROP IN BOTH EYES TWICE DAILY FOR 7 DAYS FLUoxetine (PROZAC) 20 mg, Oral, Daily glucose blood (Artisan Mobileuch Ultra) test strip Fsbs bid insulin lispro (HumaLOG) 100 UNIT/ML injection INJECT 5-10 UNITS BREAKFAST, 25 UNITS LUNCH/ DINNER PLUS CORRECTIONS OF 1:30 > 150MG/DL ( MAX 100 UNITS A DAY) Lancets (IIZI groupTouch Delica Plus [id number]) misc use to test BLOOD SUGAR THREE [...] intervention. Johanne Hdez D.O. documented in this encounterUniversity Health Truman Medical [id number] Miscellaneous Notes* Telephone Encounter - Olive Finn Franck - 02/28/2024 8:30 AM EDT PAP mask and supplies order with supportive documentation faxed to [facility]. documented in this encounterGerman Hospital09-12-2024 Telephone encounter Note* Telephone Encounter - Olive Finn Franck - 02/28/2024 8:30 AM EDT PAP mask and supplies order with supportive documentation faxed to [facility]09-09-[facility] History of Present illness Narrative* Hanna Butcher MD - 02/25/2024 10:30 AM EDT Images from the original note were not included. [address] [place] [address] Patient: Milad Seymour Date of : 1955 [...] PM 12/14/2023 12:21 AM 02/25/2024 10:00 AM [place] Sleepiness Scale Sitting and Reading 3 3 [...] Anemia Unknown Arthritis Benign prostatic hyperplasia Cancer ([facility] PROSTATE COPD (chronic obstructive pulmonary disease) ([facility]) Unknown Diabetes mellitus type 2, controlled ([facility]) GERD (gastroesophageal reflux disease) History of placement of ear tubes right ear Hyperlipidemia Hypertension Jaundice 03/30/21 FRANK (obstructive sleep apnea) cpap Visual impairment glasses Past Surgical History: Procedure Laterality Date APPENDECTOMY CHOLECYSTECTOMY 04/06/21 COLONOSCOPY 2019 FOOT SURGERY heel spur right KNEE SURGERY bilateral scope LAPAROSCOPIC EPIGASTRIC HERNIA REPAIR REPAIR ROTATOR CUFF SHOULDER Right 07/19/2020 Performed by Karsten Crowell DO at [facility] REPAIR ROTATOR CUFF SHOULDER Right 12/10/2017 Performed by Karsten Crowell DO at [facility] SHOULDER SURGERY bilateral TONSILLECTOMY 06/1970 TYMPANOSTOMY TUBE [...] Activity Alcohol Use No documented in this encounterGerman Hospital09-09-2024 Instructions* Patient Instructions* Hanna Butcher MD - 02/25/2024 10:30 AM EDT 1. Continue with current pressure setting 2. Reviewed data download 3. LDCT for lung cancer screening 4. Follow up 4 months documented in this encounterGerman Hospital08-19-2024 Telephone encounter Note* Telephone Encounter - Walt Newton - 02/04/2024 4:27 PM EDT Like self pay shoes [facility] [id number] Miscellaneous Notes* Telephone Encounter - Walt Newton - 02/04/2024 4:27 PM EDT Like self pay shoes documented in this encounterUniversity Health Truman Medical CenterHvuibvcmyq76-31-3266 Hospital Discharge instructions Patient Education 02/04/2024 12:42:37 [...] treatment? Where to find more information [employer] [place] [employer]: www.cancer.org [employer] [employer]: www.auanet.org Contact a health care [...] provider. Document Revised: 11/28/2021 Document Reviewed: 11/28/2021 [employer] Patient Education 2022 [place]. Follow Up Care 02/12/2023 10:16:19 With:NICOLA RAYMUNDO, Peterson Owens, URL Address: [facility] [address], [place] [address] [phone] When: Unknown [facility] Barb 08-19-2024 NotePatient Education Oncology Prostate Cancer Screening [...] Where to find more information ? [employer] [place] [employer]: www.cancer.org ? [place] [employer]: www.auanet.org Contact a health care [...] front of the rectum. (more content not included)...[facility]07-18-2024 Miscellaneous Notes* Telephone Encounter - Oskar Contreras MD - 01/03/2024 12:57 PM EDT Patient seen by SK. Has follow up with Dr. Butcher on 02/25/2024. Probably should wait for that visit before deciding on how best to proceed with care. Titration study on 12/13/2023 (Lpison=868.0 lbs; BMI=36.9 kg/m2) DIAGNOSIS: Central Sleep Apnea [...] may also be considered. documented in this encounterGerman Hospital07-18-2024 Telephone encounter Note* Telephone Encounter - Oskar Contreras MD - 01/03/2024 12:57 PM EDT Patient seen by SK. Has follow up with Dr. Butcher on 02/25/2024. Probably should wait for that visit before deciding on how best to proceed with care. Titration study on 12/13/2023 (Uqfvjh=585.0 lbs; BMI=36.9 kg/m2) DIAGNOSIS: Central Sleep Apnea [...] an oxygen titration may also be considered. [employer] Work Phone: 1(614) 179-107706-20-2024 Miscellaneous Notes* Telephone Encounter - Aliza Escalera - 12/06/2023 1:55 PM EDT Pt notified per SK that sleep aid has been called into [facility] in [place] for him to sisal picker and take with him the night of his upcoming sleep study. Pt voice understanding and was very appreciative. documented in this encounterG[facility] CenterLight [facility]06-20-[facility]24 Telephone encounter Note* Telephone Encounter - Aliza Escalera - 12/06/2023 1:55 PM EDT Pt notified per SK that sleep aid has been called into [facility] in [place] for him to sisal picker and take with him the night of his upcoming sleep study. Pt voice understanding and was very appreciative. [facility]06-20-2024 History of Present illness Narrative* Gregoria Ralph APRN-JALIL - 12/06/2023 12:43 PM EDT Discussed Ambien [address] Marmolejo for night of sleep study. Ordered. SONNY Denis 12/06/23 1245 documented in this encounterGerman Hospital06-19-2024 Miscellaneous Notes* Telephone Encounter - Aliza Escalera - 12/05/2023 9:58 AM EDT Pt came into office, requesting help to reach the sleep lab to get his sleep study rescheduled. States he had to leave the date he was originally schedule due to the lab at [place] being too hot. Says having hard time reaching sleep lab to r/s, so told him would send them a message to call him. Pt says willing to go to [place] or [place]. Chat sent to sleep lab Hub to contact pt at [phone]. documented in this encounterGerman Hospital06-19-2024 Telephone encounter Note* Telephone Encounter - Aliza Escalera - 12/05/2023 9:58 AM EDT Pt came into office, requesting help to reach the sleep lab to get his sleep study rescheduled. States he had to leave the date he was originally schedule due to the lab at [place] being too hot. Says having hard time reaching sleep lab to r/s, so told him would send them a message to call him. Pt says willing to go to [place] or [place]. Chat sent to sleep lab Hub to contact pt at [phone]. [facility]03-11-2024 Miscellaneous Notes* Telephone Encounter - Aliza Escalera - 08/27/2023 10:11 AM EDT ----- Message from SONNY Denis sent at 08/24/2023 10:25 AM EST ----- EF >45% ok for ASV * Telephone Encounter - Aliza Escalera - 08/27/2023 10:11 AM EDT Noted below in sleep lab encounter and on appt desk for techs for titration appt documented in this encounterGerman Hospital03-11-2024 Telephone encounter Note* Telephone Encounter - Aliza Escalera - 08/27/2023 10:11 AM EDT ----- Message from Gregoria Ralph APRN-JALIL sent at 08/24/2023 10:25 AM EST ----- EF >45% ok for ASV [facility]03-11-2024 Telephone encounter Note* Telephone Encounter - Aliza Escalera - 08/27/2023 10:11 AM EDT Noted below in sleep lab encounter and on appt desk for techs for titration appt [facility]03-01-2024 Miscellaneous Notes* Telephone Encounter - Zoraida Rosario [...] Echo prior to titration documented in this encounterGerman Hospital03-01-2024 Telephone encounter Note* Telephone Encounter - Zoraida Rosario - 08/17/2023 9:53 AM EST 08/15 received CPAP order 08/16 Scheduled CPAP at [facility] 11/18 Confirmation mailed and emailed [employer] CPAP order and 08/15 Loree notes in epic With TCO2 monitoring. Please obtain baseline in supine position. 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 Cleaning supplies with soap and water. [place] Sleepiness Scale: Sitting and Reading: (!) Moderate [...] Anemia Unknown Arthritis Benign prostatic hyperplasia Cancer ([facility]) PROSTATE COPD (chronic obstructive pulmonary disease) ([facility]) Unknown Diabetes mellitus type 2, controlled ([facility]) GERD (gastroesophageal reflux disease) History of placement [...] Titration: 03/21/19 PS08/2014 w/ AHI 95 DME: [employer] Data card was available for PAP usage [...] drive if sleepy, and to machine puller and laster if sleepiness occurs while driving. Above plan [...] that have escaped final proofreading. Gregoria Ralph [facility] Office: [phone] 2:57 PM on 08/15/2023 CC: MD Gregoria GONZALEZ APRN-CNP 08/16/23 1438 documented in this encounterGerman Hospital02-28-2024 Instructions* Patient Instructions* SONNY Denis - 08/15/2023 1:15 PM EST If you re looking for general health and wellness resources, please visit [email or web address]. documented in this encounterGerman Hospital02-15-2024 Miscellaneous Notes* Telephone Encounter - Aliza Escalera [...] still to schedule appt. documented in this [facility]02-15-2024 Telephone encounter Note* Telephone Encounter - Aliza Palomokathi - 08/02/2023 5:34 PM EST Received sleep referral from Valeria Mckeon NP. Pt is already an established pt and last saw SK in 2020- was recommended to follow up with KW. However he was a no show for his last 2 appt with our office. Chat to Tahmina to advise if still to schedule appt. [facility]02-12-2024 History of Present illness Narrative* Ashli Ross DO - 07/30/2023 12:53 PM ESTAssociated Problem(s): Type 2 diabetes mellitus with diabetic polyneuropathy, with long-term current use of insulin ([facility]) During the appointment today all [...] Breakfast Lunch Dinner Snacks Drinks Premade meal ([place] and dressing) (Mac and cheese) Protein shake [...] use of insulin ([facility]) During the appointment today all [...] index (BMI) of36.0 to 36.9 in adult ([facility]) - Primary Follow up in [...] ( MAX 100 UNITS A DAY) LANCETS (TacatìTOUCH DELICA PLUS [id number]) MISC use to test BLOOD SUGAR THREE [...] ER 50 mg tablet,extended release 24 hr TacatìTOUCH ULTRA TEST STRIP use to test BLOOD [...] (750 mg) before bedtime. documented in this encounterUniversity Health Truman Medical [id number] Procedure noteMary [facility]10-24-2023 Evaluation note* Encounter Date Diagnosis Assessment Notes Treatment Notes Treatment Clinical Notes Mar, GERD (gastroesophageal reflux disease) (ICD-10 - K21.9) The patient continues to complain of ongoing regurgitation. He is taking Lansoprazole 30 mg dialy & we will increase this to 30 mg bid. Mar, Hemorrhoids (ICD-10 - K64.9) Mar, Alternating constipation and diarrhea (ICD-10 - R19.8) [email or web address] Other 10-03-2023 Evaluation note* Encounter Date Diagnosis Assessment Notes Treatment Notes Treatment Clinical Notes Mar, Gastroesophageal ref lux disease with esophagitis (ICD-10 - K21.0) [email or web address] Other 08-28-2023 Hospital Discharge instructions Patient Education [...] greater thelikelihood that the cancer will spread. [place] 6 or lower: This indicates that the cancer cells look similar to normal prostate cells (well differentiated). [place] 7: This indicates that the cancer cells look somewhat similar to normal prostate cells (moderately differentiated). [place] 8, 9, or 10: This indicates that [...] stress of having cancer. General instructions Take dzoe-qok-yplxeat and prescription medicines only as told by your health care provider. If you have to go to the hospital, notify your cancer specialist (oncologist). Keep all follow-up visits. This is important. Where to find more information [place] [employer]: www.cancer.org [place] [employer]: www.cancer.net National Cancer [place]: www.cancer.gov Contact a health care provider if: [...] provider. Document Revised: 08/31/2021 Document Reviewed: 08/31/2021 [employer] Patient Education 2022 [place]. Follow Up Care 02/03/2022 09:06:37 With:NICOLA RAYMUNDO, Peterson Owens, URL Address: [facility] [address] , [place] [phone] When: Unknown Comments:1 yr w/ PSA [facility] Barb 04-05-2023 Evaluation note* Encounter Date Diagnosis Assessment Notes Treatment Notes Treatment Clinical Notes Sep, Gastroesophageal ref lux disease with esophagitis (ICD-10 - K21.0) [email or web address] Other 02-06-2023 Procedure noteMary Rutan Hospital02-02-2023 Evaluation note* Encounter Date Diagnosis Assessment Notes Treatment Notes Treatment Clinical Notes Jul, Diarrhea (ICD-10 - R19.7) Jul, GERD (gastroesophageal reflux disease) (ICD-10 - K21.9) Jul, Hemorrhoids (ICD-10 - K64.9) PATIENT TO START ANUSOL CREAM USE SITZ BATH NEEDED Jul, Dysphagia (ICD-10 - R13.10) [email or web address] Other 10-28-2022 NotePROCEDURE: XR FOOT RT MIN [...] by: SORIN SHORE Date: 2022-04-14 18:01[facility]08-19-2022 Hospital Discharge instructions Patient Education 02/03/2022 [...] urethra. Follow these instructions at home: Take bxxj-yzi-cflwedn and prescription medicines only as told by [...] 06/04/2006 Document Revised: 04/29/2019 Document Reviewed: 07/09/2017 [employer] Patient Education 2019 [place]. Follow Up Care 08/05/2021 10:59:30 With:NICOLA RAYMUNDO, Peterson Owens, URL Address: [facility] [address] [place] [address]- When:1 year Comments:W/ [facility]21 NoteHNO ID: [id number] Author: Fawad Diaz MD Service: ? Author Type: Physician Type: [place] Notes Filed: 02/03/2021 9:48 AM Note Text: Radiation Oncology - Follow Up Note PATIENT NAME: Milad Seymour PATIENT DIAGNOSIS: DIAGNOSIS: Prostate adenocarcinoma, initial PSA 14.65, biopsy [place] score 3 + 3 = 6 (grade [...] ASSESSMENT/PLAN:DIAGNOSIS: Prostate adenocarcinoma, initial PSA 14.65, biopsy [place] score 3 + 3 = 6 (grade [...] Diaz MD cc: Dank Campo MD ([facility]) [address] [place] [address] Dr. Petersen Portions of the above note extracted and edited from previous visit as well as active information included in the EMR.[facility] 11-04-2020 NoteHNO ID: [id number] Author: Fawad Diaz MD Service: ? Author Type: Physician Type: [place] Notes Filed: 11/04/2020 9:44 AM Note Text: Radiation Oncology - Follow Up Note PATIENT NAME: Milad Seymour PATIENT DIAGNOSIS: DIAGNOSIS: Prostate adenocarcinoma, initial PSA 14.65, biopsy [place] score 3 + 3 = 6 (grade [...] Diaz MD cc: Dank Campo MD ([facility]) [address] [place] [address] [facility] HospitalvelandEvaluation + Plan note Future Appointments Appointment Date:02/12/2023 09:15:00 AM Scheduled Provider:Peterson PETERSEN MD Location:[facility] Appointment Type:URO Office Visit Diagnostic Tests Pending * PSA Total 02/03/22 [facility] evaluation + Plan note Future Appointments Appointment Date:02/12/2023 09:15:00 AM Scheduled Provider:Peterson PETERSEN MD Location:[facility] Appointment Type:URO Office Visit [facility] evaluation + Plan note Future Appointments Appointment Date:02/15/2024 08:15:00 AM Scheduled Provider:[facility]EN [facility] Office Visit Diagnostic Tests Pending * PSA Total 02/12/23 [facility] evaluation + Plan note Future Appointments Appointment Date:02/04/2024 11:30:00 AM Scheduled Provider:Peterson PETERSEN MD Location:[facility] Appointment Type:URO Office Visit [facility] evaluation + Plan note Future Appointments Appointment Date:02/09/2025 08:45:00 AM Scheduled Provider:Peterson PETERSEN [facility]O Office Visit Diagnostic Tests Pending * PSA Total 02/04/24 [facility] evaluation noteNo assessment information available [facility] Work Phone: Evaluation noteNo [email or web address] Other Evaluation note* Diagnosis Class 2 severe obesity due to excess calories with serious comorbidity and body mass index (BMI) of 36.0 to 36.9 in adult ([facility])- Primary Type 2 diabetes mellitus with diabetic polyneuropathy, with long-term current use of insulin ([facility]) documented in this encounter [facility] HealthcareEvaluation [facility]* Diagnosis Onset Date Resolution Status H/O rotator cuff surgery acu te [facility] Work Phone: Evaluation note* Diagnosis Onset Date Resolution Status Diarrhea acute GERD (gastroesophageal reflux disease) acute [facility] Work Phone: Evaluation note* Diagnosis Preop examination- Primary Unspecified pre-operative examination documented in this encounter [facility] HealthcareEvaluation note* Diagnosis Internal derangement of left shoulder- Primary documented in this encounter [facility] HealthcareEvaluation note* Diagnosis Type 2 diabetes mellitus with diabetic polyneuropathy, with long-term current use of insulin ([facility])- Primary Class 2 severe obesity due to excess calories with serious comorbidity and body mass index (BMI) of 35.0 to 35.9 in adult ([facility])- Primary Type 2 diabetes mellitus with diabetic polyneuropathy, with long-term current use of insulin ([facility]) Long-term insulin use ([facility]) Lumbar spondylosis- Primary Lumbosacral spondylosis without myelopathy Benign essential hypertension ([facility]) Essential hypertension, benign Bilateral leg edema Edema Class 2 severe obesity due to excess calories with serious comorbidity and body mass index (BMI) of 36.0 to 36.9 in adult ([facility])- Primary Type 2 diabetes mellitus with diabetic polyneuropathy, with long-term current use of insulin ([facility]) Benign essential hypertension ([facility])- Primary Essential hypertension, benign Lumbar spondylosis Lumbosacral spondylosis without myelopathy Bilateral leg edema Edema Type 2 diabetes mellitus with diabetic polyneuropathy, with long-term current use of insulin ([facility]) Hypercholesteremia ([facility]) Pure hypercholesterolemia Encounter for long-term [...] 35.9 in adult ([facility])- Primary Type 2 diabetes mellitus [...] myelopathy Bilateral leg edema Edema Prostate cancer ([facility]) Malignant neoplasm of prostate Type 2 diabetes mellitus with hyperglycemia, with long-term current use of insulin ([facility]) Class 2 severe obesity due to excess calories with serious comorbidity and body mass index (BMI) of 35.0 to 35.9 in adult ([facility])- Primary Type 2 diabetes mellitus with hyperglycemia, with long-term current use of insulin ([facility]) Type 2 diabetes mellitus with diabetic polyneuropathy, with long-term current use of insulin ([facility]) Long-term insulin use ([facility]) Type 2 diabetes mellitus with stage 3a chronic kidney disease, with long-term current use of insulin ([facility]) ([facility]) Pre-op examination- Primary Preop examination Unspecified pre-operative examination documented in this encounter [facility] HealthcareEvaluation note* Diagnosis Type 2 diabetes mellitus with diabetic polyneuropathy, with long-term current use of insulin ([facility]/H[facility])- Primary Class 2 severe obesity due to excess calories with serious comorbidity and body mass index (BMI) of 35.0 to 35.9 in adult ([facility])- Primary Type 2 diabetes mellitus with diabetic polyneuropathy, with long-term current use of insulin ([facility]) Long-term insulin use ([facility]) Lumbar spondylosis- Primary Lumbosacral spondylosis without myelopathy Benign essential hypertension (CMS/HCC) Essential hypertension, benign Bilateral leg edema Edema Class 2 severe obesity due to excess calories with serious comorbidity and body mass index (BMI) of 36.0 to 36.9 in adult ([facility])- Primary Type 2 diabetes mellitus with diabetic polyneuropathy, with long-term current use of insulin ([facility]) Benign essential hypertension ([facility])- Primary Essential hypertension, benign Lumbar spondylosis Lumbosacral spondylosis without myelopathy Bilateral leg edema Edema Type 2 diabetes mellitus with diabetic polyneuropathy, with long-term current use of insulin ([facility]) Hypercholesteremia ([facility]) Pure hypercholesterolemia Encounter for long-term (current) use of medications Encounter for long-term (current) use of other medications Obesity (BMI 30-39.9) Body mass index [BMI] 36.0-36.9, adult (Z68.36) JARAD (generalized anxiety disorder) ([facility])- Primary Generalized anxiety disorder Benign essential hypertension ([facility]) Essential hypertension, benign Class 2 severe obesity due to excess calories with serious comorbidity and body mass index (BMI) of 35.0 to 35.9 in adult ([facility])- Primary Type 2 diabetes mellitus with diabetic polyneuropathy, with long-term current use of insulin ([facility]) Long-term insulin use ([facility]) Benign essential hypertension ([facility])- Primary Essential hypertension, benign JARAD (generalized anxiety disorder) ([facility]) Generalized anxiety disorder Bilateral leg edema Edema Lumbar spondylosis Lumbosacral spondylosis without myelopathy Benign essential hypertension ([facility])- Primary Essential hypertension, benign JARAD (generalized anxiety disorder) ([facility]) Generalized anxiety disorder Lumbar spondylosis Lumbosacral spondylosis without myelopathy Bilateral leg edema Edema Prostate cancer ([facility]) Malignant neoplasm of prostate Type 2 diabetes mellitus with hyperglycemia, with long-term current use of insulin ([facility]) Class 2 severe obesity due to excess calories with serious comorbidity and body mass index (BMI) of 35.0 to 35.9 in adult ([facility])- Primary Type 2 diabetes mellitus with hyperglycemia, with long-term current use of insulin ([facility]) Type 2 diabetes mellitus with diabetic polyneuropathy, with long-term current use of insulin ([facility]) Long-term insulin use ([facility]) Type 2 diabetes mellitus with stage 3a chronic kidney disease, with long-term current use of insulin (HCC) ([facility]) Essential (primary) hypertension ([facility]) Unspecified essential hypertension documented in this encounter [facility] HealthcareEvaluation note* Diagnosis Type 2 diabetes mellitus with diabetic polyneuropathy, with long-term current use of insulin (CMS/HCC)- Primary Class 2 severe obesity due to excess calories with serious comorbidity and body mass index (BMI) of 35.0 to 35.9 in adult ([facility])- Primary Type 2 diabetes mellitus with diabetic polyneuropathy, with long-term current use of insulin ([facility]/HCC) Long-term insulin use ([facility]) Lumbar spondylosis- Primary Lumbosacral spondylosis without myelopathy Benign essential hypertension (CMS/HCC) Essential hypertension, benign Bilateral leg edema Edema Class 2 severe obesity due to excess calories with serious comorbidity and body mass index (BMI) of 36.0 to 36.9 in adult ([facility])- Primary Type 2 diabetes mellitus with diabetic polyneuropathy, with long-term current use of insulin ([facility]) Benign essential hypertension ([facility]/HCC)- Primary Essential hypertension, benign Lumbar spondylosis Lumbosacral spondylosis without myelopathy Bilateral leg edema Edema Type 2 diabetes mellitus with diabetic polyneuropathy, with long-term current use of insulin ([facility]) Hypercholesteremia ([facility]) Pure hypercholesterolemia Encounter for long-term (current) use of medications Encounter for long-term (current) use of other medications Obesity (BMI 30-39.9) Body mass index [BMI] 36.0-36.9, adult (Z68.36) JARAD (generalized anxiety disorder) ([facility])- Primary Generalized anxiety disorder Benign essential hypertension ([facility]/HCC) Essential hypertension, benign Class 2 severe obesity due to excess calories with serious comorbidity and body mass index (BMI) of 35.0 to 35.9 in adult ([facility])- Primary Type 2 diabetes mellitus with diabetic polyneuropathy, with long-term current use of insulin ([facility]/HCC) Long-term insulin use ([facility]) Benign essential hypertension (CMS/HCC)- Primary Essential hypertension, benign JARAD (generalized anxiety disorder) (CMS/HCC) Generalized anxiety disorder Bilateral leg edema Edema Lumbar spondylosis Lumbosacral spondylosis without myelopathy Benign essential hypertension (CMS/HCC)- Primary Essential hypertension, benign JARAD (generalized anxiety disorder) (CMS/HCC) Generalized anxiety disorder Lumbar spondylosis Lumbosacral spondylosis without myelopathy Bilateral leg edema Edema Prostate cancer ([facility]) Malignant neoplasm of prostate Type 2 diabetes mellitus with hyperglycemia, with long-term current use of insulin ([facility]) Class 2 severe obesity due to excess calories with serious comorbidity and body mass index (BMI) of 35.0 to 35.9 in adult ([facility])- Primary Type 2 diabetes mellitus with hyperglycemia, with long-term current use of insulin ([facility]) Type 2 diabetes mellitus with diabetic polyneuropathy, with long-term current use of insulin ([facility]) Long-term insulin use ([facility]) Type 2 diabetes mellitus with stage 3a chronic kidney disease, with long-term current use of insulin ([facility] [facility]) ([facility]) Internal derangement of left shoulder- Primary Type 2 diabetes mellitus with diabetic polyneuropathy, with long-term current use of insulin ([facility]) documented in this encounter [facility] HealthcareEvaluation note* Diagnosis Type 2 diabetes mellitus with diabetic polyneuropathy, with long-term current use of insulin ([facility])- Primary Class 2 severe obesity due to excess calories with serious comorbidity and body mass index (BMI) of 35.0 to 35.9 in adult ([facility])- Primary Type 2 diabetes mellitus with diabetic polyneuropathy, with long-term current use of insulin ([facility]) Long-term insulin use ([facility]) Lumbar spondylosis- Primary Lumbosacral spondylosis without myelopathy Benign essential hypertension ([facility]) Essential hypertension, benign Bilateral leg edema Edema Class 2 severe obesity due to excess calories with serious comorbidity and body mass index (BMI) of 36.0 to 36.9 in adult ([facility])- Primary Type 2 diabetes mellitus with diabetic polyneuropathy, with long-term current use of insulin ([facility]) Benign essential hypertension ([facility])- Primary Essential hypertension, benign Lumbar spondylosis Lumbosacral spondylosis without myelopathy Bilateral leg edema Edema Type 2 diabetes mellitus with diabetic polyneuropathy, with long-term current use of insulin ([facility]) Hypercholesteremia ([facility]) Pure hypercholesterolemia Encounter for long-term [...] 35.9 in adult ([facility])- Primary Type 2 diabetes mellitus [...] 35.9 in adult ([facility])- Primary Type 2 diabetes mellitus with hyperglycemia, with long-term current use of insulin ([facility]) Type 2 diabetes mellitus with diabetic polyneuropathy, with long-term current use of insulin (CMS/HCC) Long-term insulin use ([facility]/HCC) Type 2 diabetes mellitus with stage 3a chronic kidney disease, with long-term current use of insulin (HCC) ([facility]) Class 2 severe obesity due to excess calories with serious comorbidity and body mass index (BMI) of 35.0 to 35.9 in adult ([facility])- Primary Type 2 diabetes mellitus with diabetic polyneuropathy, with long-term current use of insulin ([facility]/HCC) Type 2 diabetes mellitus with stage 3a chronic kidney disease, with long-term current use of insulin (HCC) ([facility]) Long-term insulin use ([facility]/HCC) documented in this encounter [facility] HealthcareEvaluation note* Diagnosis Type 2 diabetes mellitus with diabetic polyneuropathy, with long-term current use of insulin ([facility]/HCC)- Primary Class 2 severe obesity due to excess calories with serious comorbidity and body mass index (BMI) of 35.0 to 35.9 in adult ([facility])- Primary Type 2 diabetes mellitus with diabetic polyneuropathy, with long-term current use of insulin ([facility]) Long-term insulin use ([facility]) Lumbar spondylosis- Primary Lumbosacral spondylosis without myelopathy Benign essential hypertension ([facility]) Essential hypertension, benign Bilateral leg edema Edema Class 2 severe obesity due to excess calories with serious comorbidity and body mass index (BMI) of 36.0 to 36.9 in adult ([facility])- Primary Type 2 diabetes mellitus with diabetic polyneuropathy, with long-term current use of insulin ([facility]) Benign essential hypertension ([facility])- Primary Essential hypertension, benign Lumbar spondylosis Lumbosacral spondylosis without myelopathy Bilateral leg edema Edema Type 2 diabetes mellitus with diabetic polyneuropathy, with long-term current use of insulin ([facility]) Hypercholesteremia ([facility]) Pure hypercholesterolemia Encounter for long-term (current) use of medications Encounter for long-term (current) use of other medications Obesity (BMI 30-39.9) Body mass index [BMI] 36.0-36.9, adult (Z68.36) JARAD (generalized anxiety disorder) ([facility])- Primary Generalized anxiety disorder Benign essential hypertension [facility] Essential hypertension, benign Class 2 severe obesity due to excess calories with serious comorbidity and body mass index (BMI) of 35.0 to 35.9 in adult ([facility])- Primary Type 2 diabetes mellitus with diabetic polyneuropathy, with long-term current use of insulin ([facility]) Long-term insulin use ([facility]) Benign essential hypertension ([facility])- Primary Essential hypertension, benign JARAD (generalized anxiety disorder) ([facility]) Generalized anxiety disorder Bilateral leg edema Edema Lumbar spondylosis Lumbosacral spondylosis without myelopathy Benign essential hypertension ([facility])- Primary Essential hypertension, benign JARAD (generalized anxiety disorder) ([facility]) Generalized anxiety disorder Lumbar spondylosis Lumbosacral spondylosis without myelopathy Bilateral leg edema Edema Prostate cancer ([facility]) Malignant neoplasm of prostate Type 2 diabetes mellitus with hyperglycemia, with long-term current use of insulin ([facility]) Class 2 severe obesity due to excess calories with serious comorbidity and body mass index (BMI) of 35.0 to 35.9 in adult ([facility])- Primary Type 2 diabetes mellitus with hyperglycemia, with long-term current use of insulin ([facility]) Type 2 diabetes mellitus with diabetic polyneuropathy, with long-term current use of insulin ([facility]) Long-term insulin use ([facility]) Type 2 diabetes mellitus with stage 3a chronic kidney disease, with long-term current use of insulin ([facility]) ([facility]) Class 2 severe obesity due to excess calories with serious comorbidity and body mass index (BMI) of 35.0 to 35.9 in adult ([facility])- Primary Type 2 diabetes mellitus with diabetic polyneuropathy, with long-term current use of insulin ([facility]) Type 2 diabetes mellitus with stage 3a chronic kidney disease, with long-term current use of insulin ([facility]) ([facility]) Long-term insulin use ([facility]) S/P arthroscopy of left shoulder- Primary documented in this encounter [facility] HealthcareEvaluation note* Diagnosis Type 2 diabetes mellitus with diabetic polyneuropathy, with long-term current use of insulin ([facility])- Primary Class 2 severe obesity due to excess calories with serious comorbidity and body mass index (BMI) of 35.0 to 35.9 in adult ([facility])- Primary Type 2 diabetes mellitus with diabetic polyneuropathy, with long-term current use of insulin ([facility]) Long-term insulin use ([facility]) Lumbar spondylosis- Primary Lumbosacral spondylosis without myelopathy Benign essential hypertension ([facility]) Essential hypertension, benign Bilateral leg edema Edema Class 2 severe obesity due to excess calories with serious comorbidity and body mass index (BMI) of 36.0 to 36.9 in adult ([facility])- Primary Type 2 diabetes mellitus with diabetic polyneuropathy, with long-term current use of insulin ([facility]) Benign essential hypertension ([facility])- Primary Essential hypertension, benign Lumbar spondylosis Lumbosacral spondylosis without myelopathy Bilateral leg edema Edema Type 2 diabetes mellitus with diabetic polyneuropathy, with long-term current use of insulin ([facility]) Hypercholesteremia ([facility]) Pure hypercholesterolemia Encounter for long-term (current) use of medications Encounter for long-term (current) use of other medications Obesity (BMI 30-39.9) Body mass index [BMI] 36.0-36.9, adult (Z68.36) JARAD (generalized anxiety disorder) ([facility])- Primary Generalized anxiety disorder Benign essential hypertension ([facility]) Essential hypertension, benign Class 2 severe obesity due to excess calories with serious comorbidity and body mass index (BMI) of 35.0 to 35.9 in adult ([facility])- Primary Type 2 diabetes mellitus with diabetic polyneuropathy, with long-term current use of insulin ([facility]) Long-term insulin use ([facility]) Benign essential hypertension ([facility])- Primary Essential hypertension, benign JARAD (generalized anxiety disorder) ([facility]) Generalized anxiety disorder Bilateral leg edema Edema Lumbar spondylosis Lumbosacral spondylosis without myelopathy Benign essential hypertension ([facility])- Primary Essential hypertension, benign JARAD (generalized anxiety disorder) ([facility]) Generalized anxiety disorder Lumbar spondylosis Lumbosacral spondylosis without myelopathy Bilateral leg edema Edema Prostate cancer ([facility]) Malignant neoplasm of prostate Type 2 diabetes mellitus with hyperglycemia, with long-term current use of insulin ([facility]) Class 2 severe obesity due to excess calories with serious comorbidity and body mass index (BMI) of 35.0 to 35.9 in adult ([facility])- Primary Type 2 diabetes mellitus with hyperglycemia, with long-term current use of insulin ([facility]) Type 2 diabetes mellitus with diabetic polyneuropathy, with long-term current use of insulin ([facility]) Long-term insulin use ([facility]) Type 2 diabetes mellitus with stage 3a chronic kidney disease, with long-term current use of insulin ([facility]) ([facility]) Class 2 severe obesity due to excess calories with serious comorbidity and body mass index (BMI) of 35.0 to 35.9 in adult ([facility])- Primary Type 2 diabetes mellitus with diabetic polyneuropathy, with long-term current use of insulin ([facility]) Type 2 diabetes mellitus with stage 3a chronic kidney disease, with long-term current use of insulin ([facility]) ([facility]) Long-term insulin use ([facility]) S/P arthroscopy of left shoulder- Primary documented in this encounter [facility]Evaluation note* Diagnosis Type 2 diabetes mellitus with diabetic polyneuropathy, with long-term current use of insulin ([facility])- Primary Class 2 severe obesity due to excess calories with serious comorbidity and body mass index (BMI) of 35.0 to 35.9 in adult ([facility])- Primary Type 2 diabetes mellitus with diabetic polyneuropathy, with long-term current use of insulin ([facility]) Long-term insulin use ([facility]) Lumbar spondylosis- Primary Lumbosacral spondylosis without myelopathy Benign essential hypertension ([facility]) Essential hypertension, benign Bilateral leg edema Edema Class 2 severe obesity due to excess calories with serious comorbidity and body mass index (BMI) of 36.0 to 36.9 in adult ([facility])- Primary Type 2 diabetes mellitus with diabetic polyneuropathy, with long-term current use of insulin ([facility]) Benign essential hypertension ([facility])- Primary Essential hypertension, benign Lumbar spondylosis Lumbosacral spondylosis without myelopathy Bilateral leg edema Edema Type 2 diabetes mellitus with diabetic polyneuropathy, with long-term current use of insulin [facility] Hypercholesteremia [facility] Pure hypercholesterolemia Encounter for long-term (current) use of medications Encounter for long-term (current) use of other medications Obesity (BMI 30-39.9) Body mass index [BMI] 36.0-36.9, adult (Z68.36) JARAD (generalized anxiety disorder) ([facility])- Primary Generalized anxiety disorder Benign essential hypertension ([facility]) Essential hypertension, benign Class 2 severe obesity due to excess calories with serious comorbidity and body mass index (BMI) of 35.0 to 35.9 in adult ([facility])- Primary Type 2 diabetes mellitus with diabetic polyneuropathy, with long-term current use of insulin [facility]) Long-term insulin use [facility]) Benign essential hypertension ([facility])- Primary Essential hypertension, benign JARAD (generalized anxiety disorder) ([facility]) Generalized anxiety disorder Bilateral leg edema Edema Lumbar spondylosis Lumbosacral spondylosis without myelopathy Benign essential hypertension ([facility])- Primary Essential hypertension, benign JARAD (generalized anxiety disorder) ([facility]) Generalized anxiety disorder Lumbar spondylosis Lumbosacral spondylosis without myelopathy Bilateral leg edema Edema Prostate cancer ([facility]) Malignant neoplasm of prostate Type 2 diabetes mellitus with hyperglycemia, with long-term current use of insulin ([facility]) Class 2 severe obesity due to excess calories with serious comorbidity and body mass index (BMI) of 35.0 to 35.9 in adult ([facility])- Primary Type 2 diabetes mellitus with hyperglycemia, with long-term current use of insulin ([facility]) Type 2 diabetes mellitus with diabetic polyneuropathy, with long-term current use of insulin ([facility]) Long-term insulin use ([facility]) Type 2 diabetes mellitus with stage 3a chronic kidney disease, with long-term current use of insulin ([facility]) ([facility]) Class 2 severe obesity due to excess calories with serious comorbidity and body mass index (BMI) of 35.0 to 35.9 in adult ([facility])- Primary Type 2 diabetes mellitus with diabetic polyneuropathy, with long-term current use of insulin ([facility]) Type 2 diabetes mellitus with stage 3a chronic kidney disease, with long-term current use of insulin ([facility]) ([facility]) Long-term insulin use ([facility]) S/P arthroscopy of left shoulder- Primary documented in this encounter [facility] HealthcareEvaluation note* Diagnosis Type 2 diabetes mellitus with diabetic polyneuropathy, with long-term current use of insulin ([facility])- Primary Class 2 severe obesity due to excess calories with serious comorbidity and body mass index (BMI) of 35.0 to 35.9 in adult ([facility])- Primary Type 2 diabetes mellitus with diabetic polyneuropathy, with long-term current use of insulin ([facility]) Long-term insulin use ([facility]) Lumbar spondylosis- Primary Lumbosacral spondylosis without myelopathy Benign essential hypertension ([facility]) Essential hypertension, benign Bilateral leg edema Edema Class 2 severe obesity due to excess calories with serious comorbidity and body mass index (BMI) of 36.0 to 36.9 in adult ([facility])- Primary Type 2 diabetes mellitus with diabetic polyneuropathy, with long-term current use of insulin ([facility]) Benign essential hypertension ([facility])- Primary Essential hypertension, benign Lumbar spondylosis Lumbosacral spondylosis without myelopathy Bilateral leg edema Edema Type 2 diabetes mellitus with diabetic polyneuropathy, with long-term current use of insulin ([facility]) Hypercholesteremia ([facility]) Pure hypercholesterolemia Encounter for long-term (current) use of medications Encounter for long-term (current) use of other medications Obesity (BMI 30-39.9) Body mass index [BMI] 36.0-36.9, adult (Z68.36) JARAD (generalized anxiety disorder) ([facility])- Primary Generalized anxiety disorder Benign essential hypertension ([facility]) Essential hypertension, benign Class 2 severe obesity due to excess calories with serious comorbidity and body mass index (BMI) of 35.0 to 35.9 in adult ([facility])- Primary Type 2 diabetes mellitus with diabetic polyneuropathy, with long-term current use of insulin ([facility]) Long-term insulin use ([facility]) Benign essential hypertension ([facility])- Primary Essential hypertension, benign JARAD (generalized anxiety disorder) ([facility]) Generalized anxiety disorder Bilateral leg edema Edema Lumbar spondylosis Lumbosacral spondylosis without myelopathy Benign essential hypertension ([facility])- Primary Essential hypertension, benign JARAD (generalized anxiety disorder) ([facility]) Generalized anxiety disorder Lumbar spondylosis Lumbosacral spondylosis without myelopathy Bilateral leg edema Edema Prostate cancer ([facility]) Malignant neoplasm of prostate Type 2 diabetes mellitus with hyperglycemia, with long-term current use of insulin ([facility]) Class 2 severe obesity due to excess calories with serious comorbidity and body mass index (BMI) of 35.0 to 35.9 in adult ([facility])- Primary Type 2 diabetes mellitus with hyperglycemia, with long-term current use of insulin ([facility]) Type 2 diabetes mellitus with diabetic polyneuropathy, with long-term current use of insulin ([facility]) Long-term insulin use ([facility]) Type 2 diabetes mellitus with stage 3a chronic kidney disease, with long-term current use of insulin ([facility]) ([facility]) Class 2 severe obesity due to excess calories with serious comorbidity and body mass index (BMI) of 35.0 to 35.9 in adult ([facility])- Primary Type 2 diabetes mellitus with diabetic polyneuropathy, with long-term current use of insulin ([facility]) Type 2 diabetes mellitus with stage 3a chronic kidney disease, with long-term current use of insulin (HCC) ([facility]) Long-term insulin use ([facility]) S/P arthroscopy of left shoulder- Primary Left shoulder pain, unspecified chronicity documented in this encounter [facility]* Diagnosis Internal derangement of left shoulder- Primary Acute pain of left shoulder documented in this encounter [facility]* Diagnosis Type 2 diabetes mellitus with diabetic polyneuropathy, with long-term current use of insulin ([facility])- Primary Class 2 severe obesity due to excess calories with serious comorbidity and body mass index (BMI) of 35.0 to 35.9 in adult ([facility])- Primary Type 2 diabetes mellitus with diabetic polyneuropathy, with long-term current use of insulin ([facility]) [facility] use [facility] Lumbar spondylosis- Primary Lumbosacral spondylosis without myelopathy Benign essential hypertension ([facility]) Essential hypertension, benign Bilateral leg edema Edema Class 2 severe obesity due to excess calories with serious comorbidity and body mass index (BMI) of 36.0 to 36.9 in adult ([facility] [place])- Primary Type 2 diabetes mellitus with diabetic polyneuropathy, with long-term current use of insulin [facility]) Benign essential hypertension [facility] Primary Essential hypertension, benign Lumbar spondylosis Lumbosacral spondylosis without myelopathy Bilateral leg edema Edema Type 2 diabetes mellitus with diabetic polyneuropathy, with long-term current use of insulin ([facility] [facility] [place] Hypercholesteremia ([facility] [place]) Pure hypercholesterolemia Encounter for long-term (current) use of medications Encounter for long-term (current) use of other medications Obesity (BMI 30-39.9) Body mass index [BMI] 36.0-36.9, adult (Z68.36) JARAD (generalized anxiety disorder) ([facility] [place])- Primary Generalized anxiety disorder Benign essential [facility] Essential hypertension, benign Class 2 severe obesity due to excess calories with serious comorbidity and body mass index (BMI) of 35.0 to 35.9 in adult ([facility] [place])- Primary Type 2 diabetes mellitus with diabetic polyneuropathy, with long-term current use of insulin [facility] Long-term insulin use [facility] Benign essential hypertension [facility] Primary Essential hypertension, benign JARAD (generalized anxiety disorder) [facility] Generalized anxiety disorder Bilateral leg edema Edema Lumbar spondylosis Lumbosacral spondylosis without myelopathy Benign essential hypertension ([facility])- Primary Essential hypertension, benign JARAD (generalized anxiety disorder) ([facility]) Generalized anxiety disorder Lumbar spondylosis Lumbosacral spondylosis without myelopathy Bilateral leg edema Edema Prostate cancer ([facility]) Malignant neoplasm of prostate Type 2 diabetes mellitus with hyperglycemia, with long-term current use of insulin ([facility] [place]) Class 2 severe obesity due to excess calories with serious comorbidity and body mass index (BMI) of 35.0 to 35.9 in adult ([facility])- Primary Type 2 diabetes mellitus with hyperglycemia, with long-term current use of insulin ([facility]) Type 2 diabetes mellitus with diabetic polyneuropathy, with long-term current use of insulin ([facility]/HCC) Long-term insulin use ([facility]) Type 2 diabetes mellitus with stage 3a chronic kidney disease, with long-term current use of insulin (HCC) ([facility]) Class 2 severe obesity due to excess calories with serious comorbidity and body mass index (BMI) of 35.0 to 35.9 in adult ([facility])- Primary Type 2 diabetes mellitus with diabetic polyneuropathy, with long-term current use of insulin ([facility]) Type 2 diabetes mellitus with stage 3a chronic kidney disease, with long-term current use of insulin (HCC) ([facility]) Long[facility]term insulin use ([facility]) Benign essential hypertension ([facility])- Primary Essential hypertension, benign JARAD (generalized anxiety disorder) ([facility]) Generalized anxiety disorder Lumbar spondylosis Lumbosacral spondylosis without myelopathy Type 2 diabetes mellitus with diabetic polyneuropathy, with long-term current use of insulin ([facility]) Type 2 diabetes mellitus with stage 3b chronic kidney disease, with long-term current use of insulin (HCC) ([facility]) documented in [facility] encounter [facility] Diagnosis Type 2 diabetes mellitus with diabetic polyneuropathy, with long-term current use of insulin ([facility]/HCC)- Primary Class 2 severe obesity due to excess calories with serious comorbidity and body mass index (BMI) of 35.0 to 35.9 in adult ([facility])- Primary Type 2 diabetes mellitus with diabetic polyneuropathy, with long-term current use of insulin ([facility]/HCC) Long-term insulin use ([facility]) Lumbar spondylosis- Primary Lumbosacral spondylosis without myelopathy Benign essential hypertension ([facility]) Essential hypertension, benign Bilateral leg edema Edema Class 2 severe obesity due to excess calories with serious comorbidity and body mass index (BMI) of 36.0 to 36.9 in adult ([facility])- Primary Type 2 diabetes mellitus with diabetic polyneuropathy, with long-term current use of insulin ([facility]) Benign essential hypertension ([facility]/HCC)- Primary Essential hypertension, benign Lumbar spondylosis Lumbosacral spondylosis without myelopathy Bilateral leg edema Edema Type 2 diabetes mellitus with diabetic polyneuropathy, with long-term current use of insulin (CMS/HCC) Hypercholesteremia ([facility]) Pure hypercholesterolemia Encounter for long-term (current) use of medications Encounter for long-term (current) use of other medications Obesity (BMI 30-39.9) Body mass index [BMI] 36.0-36.9, adult (Z68.36) JARAD (generalized anxiety disorder) (CMS/HCC)- Primary Generalized anxiety disorder Benign essential hypertension ([facility]) Essential hypertension, benign Class 2 severe obesity due to excess calories with serious comorbidity and body mass index (BMI) of 35.0 to 35.9 in adult ([facility])- Primary Type 2 diabetes mellitus with diabetic polyneuropathy, with long-term current use of insulin ([facility]) Long-term insulin use ([facility]) Benign essential hypertension (CMS/HCC)- Primary Essential hypertension, benign JARAD (generalized anxiety disorder) (CMS/HCC) Generalized anxiety disorder Bilateral leg edema Edema Lumbar spondylosis Lumbosacral spondylosis without myelopathy Benign essential hypertension (CMS/HCC)- Primary Essential hypertension, benign JARAD (generalized anxiety disorder) (CMS/HCC) Generalized anxiety disorder Lumbar spondylosis Lumbosacral spondylosis without myelopathy Bilateral leg edema Edema Prostate cancer ([facility]) Malignant neoplasm of prostate Type 2 diabetes mellitus with hyperglycemia, with long-term current use of insulin ([facility]) Class 2 severe obesity due to excess calories with serious comorbidity and body mass index (BMI) of 35.0 to 35.9 in adult ([facility])- Primary Type 2 diabetes mellitus with hyperglycemia, with long-term current use of insulin ([facility]) Type 2 diabetes mellitus with diabetic polyneuropathy, with long-term current use of insulin ([facility]) Long-term insulin use ([facility]) Type 2 diabetes mellitus with stage 3a chronic kidney disease, with long-term current use of insulin (HCC) ([facility]) Class 2 severe obesity due to excess calories with serious comorbidity and body mass index (BMI) of 35.0 to 35.9 in adult ([facility])- Primary Type 2 diabetes mellitus with diabetic polyneuropathy, with long-term current use of insulin ([facility]) Type 2 diabetes mellitus with stage 3a chronic kidney disease, with long-term current use of insulin (HCC) ([facility]) Long-term insulin use ([facility]) Benign essential hypertension ([facility])- Primary Essential hypertension, benign JARAD (generalized anxiety disorder) ([facility]) Generalized anxiety disorder Lumbar spondylosis Lumbosacral spondylosis without myelopathy Type 2 diabetes mellitus with diabetic polyneuropathy, with long-term current use of insulin ([facility]) Type 2 diabetes mellitus with stage 3b chronic kidney disease, with long-term current use of insulin ([facility]) ([facility]) Left shoulder pain, unspecified chronicity- Primary S/P arthroscopy of left shoulder documented in this encounter [facility]* Diagnosis Type 2 diabetes mellitus with diabetic polyneuropathy, with long-term current use of insulin ([facility])- Primary Class 2 severe obesity due to excess calories with serious comorbidity and body mass index (BMI) of 35.0 to 35.9 in adult ([facility] [place])- Primary Type 2 diabetes mellitus with diabetic polyneuropathy, with long-term current use of insulin ([facility]) Long-term insulin use ([facility] [place]) Lumbar spondylosis- Primary Lumbosacral spondylosis without myelopathy Benign essential hypertension ([facility]) Essential hypertension, benign Bilateral leg edema Edema Class 2 severe obesity due to excess calories with serious comorbidity and body mass index (BMI) of 36.0 to 36.9 in adult ([facility] [place])- Primary Type 2 diabetes mellitus with diabetic polyneuropathy, with long-term current use of insulin ([facility]) Benign essential hypertension ([facility])- Primary Essential hypertension, benign Lumbar spondylosis Lumbosacral spondylosis without myelopathy Bilateral leg edema Edema Type 2 diabetes mellitus with diabetic polyneuropathy, with long-term current use of insulin ([facility]) Hypercholesteremia ([facility]) Pure hypercholesterolemia Encounter for long-term (current) use of medications Encounter for long-term (current) use of other medications Obesity (BMI 30-39.9) Body mass index [BMI] 36.0-36.9, adult (Z68.36) JARAD (generalized anxiety disorder) ([facility])- Primary Generalized anxiety disorder Benign essential hypertension ([facility]) Essential hypertension, benign Class 2 severe obesity due to excess calories with serious comorbidity and body mass index (BMI) of 35.0 to 35.9 in adult ([facility] [place])- Primary Type 2 diabetes mellitus with diabetic [...] 35.0 to 35.9 in adult (CMS/[facility])- Primary Type 2 diabetes mellitus with hyperglycemia, with long-term current use of insulin ([facility]) Type 2 diabetes mellitus with diabetic polyneuropathy, with long-term current use of insulin ([facility]/HCC) Long-term insulin use ([facility]) Type 2 diabetes mellitus with stage 3a chronic kidney disease, with long-term current use of insulin (HCC) ([facility]) Class 2 severe obesity due to excess calories with serious comorbidity and body mass index (BMI) of 35.0 to 35.9 in adult ([facility])- Primary Type 2 diabetes mellitus with diabetic polyneuropathy, with long-term current use of insulin ([facility]/HCC) Type 2 diabetes mellitus with stage 3a chronic kidney disease, with long-term current use of insulin (HCC) ([facility]/HCC) Long-term insulin use ([facility]) Benign essential hypertension (CMS/HCC)- Primary Essential hypertension, benign JARAD (generalized anxiety disorder) ([facility]/HCC) Generalized anxiety disorder Lumbar spondylosis Lumbosacral spondylosis without myelopathy Type 2 diabetes mellitus with diabetic polyneuropathy, with long-term current use of insulin ([facility]/HCC) Type 2 diabetes mellitus with stage 3b chronic kidney disease, with long-term current use of insulin (HCC) ([facility]/HCC) Contusion of left foot, initial encounter- Primary Pain in left foot Pain in soft tissues of limb Diabetic polyneuropathy associated with type 2 diabetes mellitus ([facility]) Encounter for long-term (current) use of insulin ([facility]) Encounter for long-term (current) use of insulin documented in this encounter [facility]* Diagnosis Type 2 diabetes mellitus with diabetic polyneuropathy, with long-term current use of insulin ([facility])- Primary Class 2 severe obesity due to excess calories with serious comorbidity and body mass index (BMI) of 35.0 to 35.9 in adult ([facility])- Primary Type 2 diabetes mellitus with diabetic polyneuropathy, with long-term current use of insulin ([facility]) Long-term insulin use ([facility]) Lumbar spondylosis- Primary Lumbosacral spondylosis without myelopathy Benign essential hypertension ([facility]) Essential hypertension, benign Bilateral leg edema Edema Class 2 severe obesity due to excess calories with serious comorbidity and body mass index (BMI) of 36.0 to 36.9 in adult ([facility] [place])- Primary Type 2 diabetes mellitus with diabetic polyneuropathy, with long-term current use of insulin ([facility]) Benign essential hypertension ([facility])- Primary Essential hypertension, benign Lumbar spondylosis Lumbosacral spondylosis without myelopathy Bilateral leg edema Edema Type 2 diabetes mellitus with diabetic polyneuropathy, with long-term current use of insulin ([facility]) Hypercholesteremia ([facility]) Pure hypercholesterolemia Encounter for long-term (current) use of medications Encounter for long-term (current) use of other medications Obesity (BMI 30-39.9) Body mass index [BMI] 36.0-36.9, adult (Z68.36) JARAD (generalized anxiety disorder) ([facility])- Primary Generalized anxiety disorder Benign essential hypertension ([facility]) Essential hypertension, benign Class 2 severe obesity due to excess calories with serious comorbidity and body mass index (BMI) of 35.0 to 35.9 in adult ([facility] [place])- Primary Type 2 diabetes mellitus with diabetic polyneuropathy, with long-term current use of insulin ([facility]) Long-term insulin use ([facility]) Benign essential hypertension ([facility])- Primary Essential hypertension, benign JARAD (generalized anxiety disorder) ([facility]) Generalized anxiety disorder Bilateral leg edema Edema Lumbar spondylosis Lumbosacral spondylosis without myelopathy Benign essential hypertension ([facility])- Primary Essential hypertension, benign JARAD (generalized anxiety disorder) ([facility]) Generalized anxiety disorder Lumbar spondylosis Lumbosacral spondylosis without myelopathy Bilateral leg edema Edema Prostate cancer ([facility]) Malignant neoplasm of prostate Type 2 diabetes mellitus with hyperglycemia, with long-term current use of insulin ([facility]) Class 2 severe obesity due to excess calories with serious comorbidity and body mass index (BMI) of 35.0 to 35.9 in adult ([facility])- Primary Type 2 diabetes mellitus with hyperglycemia, with long-term current use of insulin ([facility]) Type 2 diabetes mellitus with diabetic polyneuropathy, with long-term current use of insulin ([facility]/HCC) Long-term insulin use ([facility]) Type 2 diabetes mellitus with stage 3a chronic kidney disease, with long-term current use of insulin (HCC) ([facility]) Class 2 severe obesity due to excess calories with serious comorbidity and body mass index (BMI) of 35.0 to 35.9 in adult ([facility])- Primary Type 2 diabetes mellitus with diabetic polyneuropathy, with long-term current use of insulin ([facility]) Type 2 diabetes mellitus with stage 3a chronic kidney disease, with long-term current use of insulin ([facility]) ([facility]) Long-term insulin use ([facility]) Benign essential hypertension ([facility])- Primary Essential hypertension, benign JARAD (generalized anxiety disorder) ([facility]) Generalized anxiety disorder Lumbar spondylosis Lumbosacral spondylosis without myelopathy Type 2 diabetes mellitus with diabetic polyneuropathy, with long-term current use of insulin ([facility]) Type 2 diabetes mellitus with stage 3b chronic kidney disease, with long-term current use of insulin (HCC) ([facility]) Left shoulder pain, unspecified chronicity- Primary S/P arthroscopy of left shoulder documented in this encounter [facility]* Diagnosis Type 2 diabetes mellitus with diabetic polyneuropathy, with long-term current use of insulin ([facility]) Preop examination Unspecified pre-operative examination documented in this encounter [facility]* Diagnosis Type 2 diabetes mellitus with diabetic polyneuropathy, with long-term current use of insulin ([facility])- Primary Class 2 severe obesity due to excess calories with serious comorbidity and body mass index (BMI) of 35.0 to 35.9 in adult ([facility])- Primary Type 2 diabetes mellitus with diabetic polyneuropathy, with long-term current use of insulin ([facility]) Long-term insulin use ([facility]) Lumbar spondylosis- Primary Lumbosacral spondylosis without myelopathy Benign essential hypertension ([facility]CC) Essential hypertension, benign Bilateral leg edema Edema Class 2 severe obesity due to excess calories with serious comorbidity and body mass index (BMI) of 36.0 to 36.9 in adult ([facility])- Primary Type 2 diabetes mellitus with diabetic polyneuropathy, with long-term current use of insulin ([facility]) Benign essential hypertension ([facility])- Primary Essential hypertension, benign Lumbar spondylosis Lumbosacral spondylosis without myelopathy Bilateral leg edema Edema Type 2 diabetes mellitus with diabetic polyneuropathy, with long-term current use of insulin ([facility]) Hypercholesteremia ([facility]) Pure hypercholesterolemia Encounter for long-term (current) use of medications Encounter for long-term (current) use of other medications Obesity (BMI 30-39.9) Body mass index [BMI] 36.0-36.9, adult (Z68.36) JARAD (generalized anxiety disorder) ([facility])- Primary Generalized anxiety disorder Benign essential hypertension ([facility]) Essential hypertension, benign Class 2 severe obesity due to excess calories with serious comorbidity and body mass index (BMI) of 35.0 to 35.9 in adult ([facility])- Primary Type 2 diabetes mellitus with diabetic polyneuropathy, with long-term current use of insulin ([facility]) Long-term insulin use ([facility]) Benign essential hypertension ([facility])- Primary Essential hypertension, benign JARAD (generalized anxiety disorder) ([facility]) Generalized anxiety disorder Bilateral leg edema Edema Lumbar spondylosis Lumbosacral spondylosis without myelopathy Benign essential hypertension ([facility])- Primary Essential hypertension, benign JARAD (generalized anxiety disorder) ([facility]) Generalized anxiety disorder Lumbar spondylosis Lumbosacral spondylosis without myelopathy Bilateral leg edema Edema Prostate cancer ([facility]) Malignant neoplasm of prostate Type 2 diabetes mellitus with hyperglycemia, with long-term current use of insulin ([facility]) Class 2 severe obesity due to excess calories with serious comorbidity and body mass index (BMI) of 35.0 to 35.9 in adult ([facility] [place])- Primary Type 2 diabetes mellitus with hyperglycemia, with long-term current use of insulin ([facility]) Type 2 diabetes mellitus with diabetic polyneuropathy, with long-term current use of insulin ([facility]) Long-term insulin use ([facility]) Type 2 diabetes mellitus with stage 3a chronic kidney disease, with long-term current use of insulin (HCC) ([facility]) Class 2 severe obesity due to excess calories with serious comorbidity and body mass index (BMI) of 35.0 to 35.9 in adult ([facility])- Primary Type 2 diabetes mellitus with diabetic polyneuropathy, with long-term current use of insulin ([facility]) Type 2 diabetes mellitus with stage 3a chronic kidney disease, with long-term current use of insulin (HCC) ([facility]) Long-term insulin use ([facility]) Benign essential hypertension ([facility])- Primary Essential hypertension, benign JARAD (generalized anxiety disorder) ([facility]) Generalized anxiety disorder Lumbar spondylosis Lumbosacral spondylosis without myelopathy Type 2 diabetes mellitus with diabetic polyneuropathy, with long-term current use of insulin ([facility]) Type 2 diabetes mellitus with stage 3b chronic kidney disease, with long-term current use of insulin (HCC) ([facility]) Left shoulder pain, unspecified chronicity- Primary S/P arthroscopy of left shoulder S/P arthroscopy of left shoulder- Primary documented in this encounter [facility] HealthcareEvaluation note* Diagnosis Type 2 diabetes mellitus with diabetic polyneuropathy, with long-term current use of insulin ([facility])- Primary Class 2 severe obesity due to excess calories with serious comorbidity and body mass index (BMI) of 35.0 to 35.9 in adult ([facility])- Primary Type 2 diabetes mellitus with diabetic polyneuropathy, with long-term current use of insulin ([facility]) Long-term insulin use ([facility]) Lumbar spondylosis- Primary Lumbosacral spondylosis without myelopathy Benign essential hypertension ([facility]) Essential hypertension, benign Bilateral leg edema Edema Class 2 severe obesity due to excess calories with serious comorbidity and body mass index (BMI) of 36.0 to 36.9 in adult ([facility])- Primary Type 2 diabetes mellitus with diabetic polyneuropathy, with long-term current use of insulin ([facility]) Benign essential hypertension ([facility])- Primary Essential hypertension, benign Lumbar spondylosis Lumbosacral spondylosis without myelopathy Bilateral leg edema Edema Type 2 diabetes mellitus with diabetic polyneuropathy, with long-term current use of insulin ([facility]) Hypercholesteremia ([facility]) Pure hypercholesterolemia Encounter for long-term (current) use of medications Encounter for long-term (current) use of other medications Obesity (BMI 30-39.9) Body mass index [BMI] 36.0-36.9, adult (Z68.36) JARAD (generalized anxiety disorder) ([facility])- Primary Generalized anxiety disorder Benign essential hypertension ([facility]) Essential hypertension, benign Class 2 severe obesity due to excess calories with serious comorbidity and body mass index (BMI) of 35.0 to 35.9 in adult ([facility])- Primary Type 2 diabetes mellitus with diabetic polyneuropathy, with long-term current use of insulin ([facility]) Long-term insulin use ([facility]) Benign essential hypertension ([facility])- Primary Essential hypertension, benign JARAD (generalized anxiety disorder) ([facility]) Generalized anxiety disorder Bilateral leg edema Edema Lumbar spondylosis Lumbosacral spondylosis without myelopathy Benign essential hypertension ([facility]/HCC)- Primary Essential hypertension, benign JARAD (generalized anxiety disorder) ([facility]) Generalized anxiety disorder Lumbar spondylosis Lumbosacral spondylosis without myelopathy Bilateral leg edema Edema Prostate cancer ([facility]) Malignant neoplasm of prostate Type 2 diabetes mellitus with hyperglycemia, with long-term current use of insulin ([facility]) Class 2 severe obesity due to excess calories with serious comorbidity and body mass index (BMI) of 35.0 to 35.9 in adult ([facility])- Primary Type 2 diabetes mellitus with hyperglycemia, with long-term current use of insulin ([facility]) Type 2 diabetes mellitus with diabetic polyneuropathy, with long-term current use of insulin ([facility]) Long-term insulin use ([facility]) Type 2 diabetes mellitus with stage 3a chronic kidney disease, with long-term current use of insulin ([facility]) ([facility]) Class 2 severe obesity due to excess calories with serious comorbidity and body mass index (BMI) of 35.0 to 35.9 in adult ([facility])- Primary Type 2 diabetes mellitus with diabetic polyneuropathy, with long-term current use of insulin ([facility]) Type 2 diabetes mellitus with stage 3a chronic kidney disease, with long-term current use of insulin (HCC) ([facility]) Long-term insulin use ([facility]) Benign essential hypertension ([facility])- Primary Essential hypertension, benign JARAD (generalized anxiety disorder) ([facility]) Generalized anxiety disorder Lumbar spondylosis Lumbosacral spondylosis without myelopathy Type 2 diabetes mellitus with diabetic polyneuropathy, with long-term current use of insulin ([facility]) Type 2 diabetes mellitus with stage 3b chronic kidney disease, with long-term current use of insulin ([facility]) ([facility]) S/P arthroscopy of left shoulder- Primary documented in this encounter [facility] HealthcareEvaluation note* Diagnosis Type 2 diabetes mellitus with diabetic polyneuropathy, with long-term current use of insulin ([facility])- Primary Class 2 severe obesity due to excess calories with serious comorbidity and body mass index (BMI) of 35.0 to 35.9 in adult ([facility])- Primary Type 2 diabetes mellitus with diabetic polyneuropathy, with long-term current use of insulin ([facility]) Long-term insulin use ([facility]) Lumbar spondylosis- Primary Lumbosacral spondylosis without myelopathy Benign essential hypertension ([facility]) Essential hypertension, benign Bilateral leg edema Edema Class 2 severe obesity due to excess calories with serious comorbidity and body mass index (BMI) of 36.0 to 36.9 in adult ([facility])- Primary Type 2 diabetes mellitus with diabetic polyneuropathy, with long-term current use of insulin ([facility]) Benign essential hypertension ([facility])- Primary Essential hypertension, benign Lumbar spondylosis Lumbosacral spondylosis without myelopathy Bilateral leg edema Edema Type 2 diabetes mellitus with diabetic polyneuropathy, with long-term current use of insulin ([facility]) Hypercholesteremia ([facility]) Pure hypercholesterolemia Encounter for long-term (current) use of medications Encounter for long-term (current) use of other medications Obesity (BMI 30-39.9) Body mass index [BMI] 36.0-36.9, adult (Z68.36) JARAD (generalized anxiety disorder) ([facility])- Primary Generalized anxiety disorder Benign essential hypertension ([facility]) Essential hypertension, benign Class 2 severe obesity due to excess calories with serious comorbidity and body mass index (BMI) of 35.0 to 35.9 in adult ([facility])- Primary Type 2 diabetes mellitus with diabetic polyneuropathy, with long-term current use of insulin ([facility]) Long-term insulin use ([facility]/HCC) Benign essential hypertension ([facility]/HCC)- Primary Essential hypertension, benign JARAD (generalized anxiety disorder) ([facility]/HCC) Generalized anxiety disorder Bilateral leg edema Edema Lumbar spondylosis Lumbosacral spondylosis without myelopathy Benign essential hypertension (CMS/HCC)- Primary Essential hypertension, benign JARAD (generalized anxiety disorder) ([facility]/HCC) Generalized anxiety disorder Lumbar spondylosis Lumbosacral spondylosis without myelopathy Bilateral leg edema Edema Prostate cancer ([facility]) Malignant neoplasm of prostate Type 2 diabetes mellitus with hyperglycemia, with long-term current use of insulin ([facility]) Class 2 severe obesity due to excess calories with serious comorbidity and body mass index (BMI) of 35.0 to 35.9 in adult ([facility])- Primary Type 2 diabetes mellitus with hyperglycemia, with long-term current use of insulin ([facility]) Type 2 diabetes mellitus with diabetic polyneuropathy, with long-term current use of insulin ([facility]) Long-term insulin use ([facility]) Type 2 diabetes mellitus with stage 3a chronic kidney disease, with long-term current use of insulin ([facility]) ([facility]) Class 2 severe obesity due to excess calories with serious comorbidity and body mass index (BMI) of 35.0 to 35.9 in adult ([facility])- Primary Type 2 diabetes mellitus with diabetic polyneuropathy, with long-term current use of insulin ([facility]) Type 2 diabetes mellitus with stage 3a chronic kidney disease, with long-term current use of insulin (HCC) ([facility]) Long-term insulin use ([facility]) Benign essential hypertension ([facility])- Primary Essential hypertension, benign JARAD (generalized anxiety disorder) ([facility]) Generalized anxiety disorder Lumbar spondylosis Lumbosacral spondylosis without myelopathy Type 2 diabetes mellitus with diabetic polyneuropathy, with long-term current use of insulin ([facility]) Type 2 diabetes mellitus with stage 3b chronic kidney disease, with long-term current use of insulin ([facility]) ([facility]) Left shoulder pain, unspecified chronicity- Primary S/P arthroscopy of left shoulder documented in this encounter [facility] HealthcareEvaluation note* Diagnosis Type 2 diabetes mellitus with diabetic polyneuropathy, with long-term current use of insulin ([facility])- Primary Class 2 severe obesity due to excess calories with serious comorbidity and body mass index (BMI) of 35.0 to 35.9 in adult ([facility])- Primary Type 2 diabetes mellitus with diabetic polyneuropathy, with long-term current use of insulin ([facility]) Long-term insulin use ([facility]) Lumbar spondylosis- Primary Lumbosacral spondylosis without myelopathy Benign essential hypertension ([facility]) Essential hypertension, benign Bilateral leg edema Edema Class 2 severe obesity due to excess calories with serious comorbidity and body mass index (BMI) of 36.0 to 36.9 in adult ([facility])- Primary Type 2 diabetes mellitus with diabetic polyneuropathy, with long-term current use of insulin ([facility]) Benign essential hypertension ([facility])- Primary Essential hypertension, benign Lumbar spondylosis Lumbosacral spondylosis without myelopathy Bilateral leg edema Edema Type 2 diabetes mellitus with diabetic polyneuropathy, with long-term current use of insulin ([facility]) Hypercholesteremia ([facility]) Pure hypercholesterolemia Encounter for long-term (current) use of medications Encounter for long-term (current) use of other medications Obesity (BMI 30-39.9) Body mass index [BMI] 36.0-36.9, adult (Z68.36) JARAD (generalized anxiety disorder) ([facility])- Primary Generalized anxiety disorder Benign essential hypertension [facility] Essential hypertension, benign Class 2 severe obesity due to excess calories with serious comorbidity and body mass index (BMI) of 35.0 to 35.9 in adult ([facility])- Primary Type 2 diabetes mellitus with diabetic polyneuropathy, with long-term current use of insulin ([facility]) Long-term insulin use ([facility]) Benign essential hypertension ([facility])- Primary Essential hypertension, benign JARAD (generalized anxiety disorder) ([facility]) Generalized anxiety disorder Bilateral leg edema Edema Lumbar spondylosis Lumbosacral spondylosis without myelopathy Benign essential hypertension ([facility])- Primary Essential hypertension, benign JARAD (generalized anxiety disorder) ([facility]) Generalized anxiety disorder Lumbar spondylosis Lumbosacral spondylosis without myelopathy Bilateral leg edema Edema Prostate cancer ([facility]) Malignant neoplasm of prostate Type 2 diabetes mellitus with hyperglycemia, with long-term current use of insulin ([facility]) Class 2 severe obesity due to excess calories with serious comorbidity and body mass index (BMI) of 35.0 to 35.9 in adult ([facility])- Primary Type 2 diabetes mellitus with hyperglycemia, with long-term current use of insulin ([facility]) Type 2 diabetes mellitus with diabetic polyneuropathy, with long-term current use of insulin ([facility]/HCC) Long-term insulin use ([facility]) Type 2 diabetes mellitus with stage 3a chronic kidney disease, with long-term current use of insulin (HCC) ([facility]) Class 2 severe obesity due to excess calories with serious comorbidity and body mass index (BMI) of 35.0 to 35.9 in adult ([facility])- Primary Type 2 diabetes mellitus with diabetic polyneuropathy, with long-term current use of insulin ([facility]) Type 2 diabetes mellitus with stage 3a chronic kidney disease, with long-term current use of insulin (HCC) ([facility]) Long-term insulin use ([facility]) Benign essential hypertension ([facility])- Primary Essential hypertension, benign JARAD (generalized anxiety disorder) ([facility]) Generalized anxiety disorder Lumbar spondylosis Lumbosacral spondylosis without myelopathy Type 2 diabetes mellitus with diabetic polyneuropathy, with long-term current use of insulin ([facility]) Type 2 diabetes mellitus with stage 3b chronic kidney disease, with long-term current use of insulin (HCC) ([facility]) Left shoulder pain, unspecified chronicity- Primary S/P arthroscopy of left shoulder documented in this encounter [facility]* Diagnosis Type 2 diabetes mellitus with diabetic polyneuropathy, with long-term current use of insulin ([facility])- Primary Class 2 severe obesity due to excess calories with serious comorbidity and body mass index (BMI) of 35.0 to 35.9 in adult ([facility])- Primary Type 2 diabetes mellitus with diabetic polyneuropathy, with long-term current use of insulin ([facility]) Long-term insulin use ([facility]) Lumbar spondylosis- Primary Lumbosacral spondylosis without myelopathy Benign essential hypertension ([facility]) Essential hypertension, benign Bilateral leg edema Edema Class 2 severe obesity due to excess calories with serious comorbidity and body mass index (BMI) of 36.0 to 36.9 in adult ([facility])- Primary Type 2 diabetes mellitus with diabetic polyneuropathy, with long-term current use of insulin ([facility]) Benign essential hypertension ([facility]/HCC)- Primary Essential hypertension, benign Lumbar spondylosis Lumbosacral spondylosis without myelopathy Bilateral leg edema Edema Type 2 diabetes mellitus with diabetic polyneuropathy, with long-term current use of insulin (CMS/HCC) Hypercholesteremia ([facility]) Pure hypercholesterolemia Encounter for long-term (current) use of medications Encounter for long-term (current) use of other medications Obesity (BMI 30-39.9) Body mass index [BMI] 36.0-36.9, adult (Z68.36) JARAD (generalized anxiety disorder) (CMS/HCC)- Primary Generalized anxiety disorder Benign essential hypertension ([facility]) Essential hypertension, benign Class 2 severe obesity due to excess calories with serious comorbidity and body mass index (BMI) of 35.0 to 35.9 in adult ([facility])- Primary Type 2 diabetes mellitus with diabetic polyneuropathy, with long-term current use of insulin ([facility]) Long-term insulin use ([facility]) Benign essential hypertension (CMS/HCC)- Primary Essential hypertension, benign JARAD (generalized anxiety disorder) (CMS/HCC) Generalized anxiety disorder Bilateral leg edema Edema Lumbar spondylosis Lumbosacral spondylosis without myelopathy Benign essential hypertension (CMS/HCC)- Primary Essential hypertension, benign JARAD (generalized anxiety disorder) (CMS/HCC) Generalized anxiety disorder Lumbar spondylosis Lumbosacral spondylosis without myelopathy Bilateral leg edema Edema Prostate cancer ([facility]) Malignant neoplasm of prostate Type 2 diabetes mellitus with hyperglycemia, with long-term current use of insulin ([facility]) Class 2 severe obesity due to excess calories with serious comorbidity and body mass index (BMI) of 35.0 to 35.9 in adult ([facility])- Primary Type 2 diabetes mellitus with hyperglycemia, with long-term current use of insulin ([facility]) Type 2 diabetes mellitus with diabetic polyneuropathy, with long-term current use of insulin ([facility]/HCC) Long-term insulin use ([facility]) Type 2 diabetes mellitus with stage 3a chronic kidney disease, with long-term current use of insulin (HCC) ([facility]) Class 2 severe obesity due to excess calories with serious comorbidity and body mass index (BMI) of 35.0 to 35.9 in adult ([facility])- Primary Type 2 diabetes mellitus with diabetic polyneuropathy, with long-term current use of insulin ([facility]) Type 2 diabetes mellitus with stage 3a chronic kidney disease, with long-term current use of insulin (HCC) ([facility]) Long-term insulin use ([facility]) Benign essential hypertension ([facility])- Primary Essential hypertension, benign JARAD (generalized anxiety disorder) ([facility]) Generalized anxiety disorder Lumbar spondylosis Lumbosacral spondylosis without myelopathy Type 2 diabetes mellitus with diabetic polyneuropathy, with long-term current use of insulin ([facility]) Type 2 diabetes mellitus with stage 3b chronic kidney disease, with long-term current use of insulin ([facility]) ([facility]) Left shoulder pain, unspecified chronicity- Primary S/P arthroscopy of left shoulder documented in this encounter [facility] HealthcareEvaluation note* Diagnosis Type 2 diabetes mellitus with diabetic polyneuropathy, with long-term current use of insulin ([facility])- Primary Class 2 severe obesity due to excess calories with serious comorbidity and body mass index (BMI) of 35.0 to 35.9 in adult ([facility])- Primary Type 2 diabetes mellitus with diabetic polyneuropathy, with long-term current use of insulin ([facility]) Long-term insulin use ([facility]) Lumbar spondylosis- Primary Lumbosacral spondylosis without myelopathy Benign essential hypertension ([facility]) Essential hypertension, benign Bilateral leg edema Edema Class 2 severe obesity due to excess calories with serious comorbidity and body mass index (BMI) of 36.0 to 36.9 in adult ([facility])- Primary Type 2 diabetes mellitus with diabetic polyneuropathy, with long-term current use of insulin ([facility]) Benign essential hypertension ([facility])- Primary Essential hypertension, benign Lumbar spondylosis Lumbosacral spondylosis without myelopathy Bilateral leg edema Edema Type 2 diabetes mellitus with diabetic polyneuropathy, with long-term current use of insulin ([facility]) Hypercholesteremia ([facility]) Pure hypercholesterolemia Encounter for long-term (current) use of medications Encounter for long-term (current) use of other medications Obesity (BMI 30-39.9) Body mass index [BMI] 36.0-36.9, adult (Z68.36) JARAD (generalized anxiety disorder) ([facility])- Primary Generalized anxiety disorder Benign essential hypertension ([facility]) Essential hypertension, benign Class 2 severe obesity due to excess calories with serious comorbidity and body mass index (BMI) of 35.0 to 35.9 in adult ([facility])- Primary Type 2 diabetes mellitus with diabetic polyneuropathy, with long-term current use of insulin (CMS/HCC) Long-term insulin use ([facility]/HCC) Benign essential hypertension (CMS/HCC)- Primary Essential [...] use of insulin ([facility]) Class 2 severe obesity due to excess calories with serious comorbidity and body mass index (BMI) of 35.0 to 35.9 in adult ([facility])- Primary Type 2 diabetes mellitus with hyperglycemia, with long-term current use of insulin ([facility]) Type 2 diabetes mellitus with diabetic polyneuropathy, with long-term current use of insulin ([facility]/HCC) Long-term insulin use ([facility]) Type 2 diabetes mellitus with stage 3a chronic kidney disease, with long-term current use of insulin (HCC) ([facility]) Class 2 severe obesity due to excess calories with serious comorbidity and body mass index (BMI) of 35.0 to 35.9 in adult ([facility])- Primary Type 2 diabetes mellitus with diabetic polyneuropathy, with long-term current use of insulin ([facility]/HCC) Type 2 diabetes mellitus with stage 3a chronic kidney disease, with long-term current use of insulin (HCC) ([facility]) Long-term insulin use ([facility]) Benign essential hypertension (CMS/HCC)- Primary Essential hypertension, benign JARAD (generalized anxiety disorder) ([facility]/HCC) Generalized anxiety disorder Lumbar spondylosis Lumbosacral spondylosis without myelopathy Type 2 diabetes mellitus with diabetic polyneuropathy, with long-term current use of insulin ([facility]/HCC) Type 2 diabetes mellitus with stage 3b chronic kidney disease, with long-term current use of insulin (HCC) ([facility]/HCC) S/P arthroscopy of left shoulder- Primary [facility] Diagnosis Type 2 diabetes mellitus with diabetic polyneuropathy, with long-term current use of insulin ([facility])- Primary Class 2 severe obesity due to excess calories with serious comorbidity and body mass index (BMI) of 35.0 to 35.9 in adult ([facility])- Primary Type 2 diabetes mellitus with diabetic polyneuropathy, with long-term current use of insulin [facility] Lumbar spondylosis- Primary Lumbosacral spondylosis without myelopathy Benign essential hypertension ([facility]) Essential hypertension, benign Bilateral leg edema Edema Class 2 severe obesity due to excess calories with serious comorbidity and body mass index (BMI) of 36.0 to 36.9 in adult ([facility])- Primary Type 2 diabetes mellitus with diabetic polyneuropathy, with long-term current use of insulin [facility] Benign essential hypertension [facility] Primary Essential hypertension, benign Lumbar spondylosis Lumbosacral spondylosis without myelopathy Bilateral leg edema Edema Type 2 diabetes mellitus with diabetic polyneuropathy, with long-term current use of insulin [facility] Hypercholesteremia ([facility]) Pure hypercholesterolemia Encounter for long-term (current) use of medications Encounter for long-term (current) use of other medications Obesity (BMI 30-39.9) Body mass index [BMI] 36.0-36.9, adult (Z68.36) JARAD (generalized anxiety disorder) ([facility])- Primary Generalized anxiety disorder Benign essential hypertension [facility] Essential hypertension, benign Class 2 severe obesity due to excess calories with serious comorbidity and body mass index (BMI) of 35.0 to 35.9 in adult ([facility] [place])- Primary Type 2 diabetes mellitus with diabetic polyneuropathy, with long-term current use of insulin [facility]) [facility] Benign essential hypertension ([facility])- Primary Essential hypertension, benign JARAD (generalized anxiety disorder) ([facility]) Generalized anxiety disorder Bilateral leg edema Edema Lumbar spondylosis Lumbosacral spondylosis without myelopathy Benign essential hypertension ([facility])- Primary Essential hypertension, benign JARAD (generalized anxiety disorder) ([facility]) Generalized anxiety disorder Lumbar spondylosis Lumbosacral spondylosis without myelopathy Bilateral leg edema Edema Prostate cancer ([facility]) Malignant neoplasm of prostate Type 2 diabetes mellitus with hyperglycemia, with long-term current use of insulin [facility] Class 2 severe obesity due to excess calories with serious comorbidity and body mass index (BMI) of 35.0 to 35.9 in adult ([facility])- Primary Type 2 diabetes mellitus with hyperglycemia, with long-term current use of insulin ([facility]) Type 2 diabetes mellitus with diabetic polyneuropathy, with long-term current use of insulin ([facility]) Long-term insulin use ([facility]) Type 2 diabetes mellitus with stage 3a chronic kidney disease, with long-term current use of insulin ([facility]) ([facility]) Class 2 severe obesity due to excess calories with serious comorbidity and body mass index (BMI) of 35.0 to 35.9 in adult ([facility])- Primary Type 2 diabetes mellitus with diabetic polyneuropathy, with long-term current use of insulin ([facility]) Type 2 diabetes mellitus with stage 3a chronic kidney disease, with long-term current use of insulin ([facility]) ([facility]) Long-term insulin use ([facility]) Benign essential hypertension ([facility])- Primary Essential hypertension, benign JARAD (generalized anxiety disorder) ([facility]) Generalized anxiety disorder Lumbar spondylosis Lumbosacral spondylosis without myelopathy Type 2 diabetes mellitus with diabetic polyneuropathy, with long-term current use of insulin ([facility]) Type 2 diabetes mellitus with stage 3b chronic kidney disease, with long-term current use of insulin ([facility]) ([facility]) Left shoulder pain, unspecified chronicity- Primary S/P arthroscopy of left shoulder documented in this encounter [facility]* Diagnosis Type 2 diabetes mellitus with diabetic polyneuropathy, with long-term current use of insulin ([facility])- Primary Class 2 severe obesity due to excess calories with serious comorbidity and body mass index (BMI) of 35.0 to 35.9 in adult ([facility])- Primary Type 2 diabetes mellitus with diabetic polyneuropathy, with long-term current use of insulin ([facility]) Long-term insulin use ([facility]) Lumbar spondylosis- Primary Lumbosacral spondylosis without myelopathy Benign essential hypertension ([facility]) Essential hypertension, benign Bilateral leg edema Edema Class 2 severe obesity due to excess calories with serious comorbidity and body mass index (BMI) of 36.0 to 36.9 in adult ([facility])- Primary Type 2 diabetes mellitus with diabetic polyneuropathy, with long-term current use of insulin ([facility]) Benign essential hypertension ([facility])- Primary Essential hypertension, benign Lumbar spondylosis Lumbosacral spondylosis without myelopathy Bilateral leg edema Edema Type 2 diabetes mellitus with diabetic polyneuropathy, with long-term current use of insulin ([facility]) Hypercholesteremia ([facility]) Pure hypercholesterolemia Encounter for long-term (current) use of medications Encounter for long-term (current) use of other medications Obesity (BMI 30-39.9) Body mass index [BMI] 36.0-36.9, adult (Z68.36) JARAD (generalized anxiety disorder) ([facility])- Primary Generalized anxiety disorder Benign essential hypertension ([facility]) Essential hypertension, benign Class 2 severe obesity due to excess calories with serious comorbidity and body mass index (BMI) of 35.0 to 35.9 in adult ([facility])- Primary Type 2 diabetes mellitus with diabetic polyneuropathy, with long-term current use of insulin ([facility]) Long-term insulin use ([facility]) Benign essential hypertension ([facility])- Primary Essential hypertension, benign JARAD (generalized anxiety disorder) ([facility]) Generalized anxiety disorder Bilateral leg edema Edema Lumbar spondylosis Lumbosacral spondylosis without myelopathy Benign essential hypertension ([facility])- Primary Essential hypertension, benign JARAD (generalized anxiety disorder) ([facility]) Generalized anxiety disorder Lumbar spondylosis Lumbosacral spondylosis without myelopathy Bilateral leg edema Edema Prostate cancer ([facility]) Malignant neoplasm of prostate Type 2 diabetes mellitus with hyperglycemia, with long-term current use of insulin ([facility]) Class 2 severe obesity due to excess calories with serious comorbidity and body mass index (BMI) of 35.0 to 35.9 in adult ([facility])- Primary Type 2 diabetes mellitus with hyperglycemia, with long-term current use of insulin ([facility]) Type 2 diabetes mellitus with diabetic polyneuropathy, with long-term current use of insulin ([facility]) Long-term insulin use ([facility]) Type 2 diabetes mellitus with stage 3a chronic kidney disease, with long-term current use of insulin ([facility]) ([facility]) Class 2 severe obesity due to excess calories with serious comorbidity and body mass index (BMI) of 35.0 to 35.9 in adult ([facility])- Primary Type 2 diabetes mellitus with diabetic polyneuropathy, with long-term current use of insulin ([facility]) Type 2 diabetes mellitus with stage 3a chronic kidney disease, with long-term current use of insulin (HCC) ([facility]) Long-term insulin use ([facility]) Benign essential hypertension ([facility])- Primary Essential hypertension, benign JARAD (generalized anxiety disorder) ([facility]) Generalized anxiety disorder Lumbar spondylosis Lumbosacral spondylosis without myelopathy Type 2 diabetes mellitus with diabetic polyneuropathy, with long-term current use of insulin ([facility]) Type 2 diabetes mellitus with stage 3b chronic kidney disease, with long-term current use of insulin ([facility]) ([facility]) Left shoulder pain, unspecified chronicity- Primary S/P arthroscopy of left shoulder documented in this encounter [facility]* Diagnosis Type 2 diabetes mellitus with diabetic polyneuropathy, with long-term current use of insulin ([facility])- Primary Class 2 severe obesity due to excess calories with serious comorbidity and body mass index (BMI) of 35.0 to 35.9 in adult ([facility])- Primary Type 2 diabetes mellitus with diabetic polyneuropathy, with long-term current use of insulin ([facility]) Long-term insulin use ([facility]) Lumbar spondylosis- Primary Lumbosacral spondylosis without myelopathy Benign essential hypertension ([facility]) Essential hypertension, benign Bilateral leg edema Edema Class 2 severe obesity due to excess calories with serious comorbidity and body mass index (BMI) of 36.0 to 36.9 in adult ([facility])- Primary Type 2 diabetes mellitus with diabetic polyneuropathy, with long-term current use of insulin ([facility]) Benign essential hypertension ([facility])- Primary Essential hypertension, benign Lumbar spondylosis Lumbosacral spondylosis without myelopathy Bilateral leg edema Edema Type 2 diabetes mellitus with diabetic polyneuropathy, with long-term current use of insulin ([facility]) Hypercholesteremia ([facility]) Pure hypercholesterolemia Encounter for long-term (current) use of medications Encounter for long-term (current) use of other medications Obesity (BMI 30-39.9) Body mass index [BMI] 36.0-36.9, adult (Z68.36) JARAD (generalized anxiety disorder) ([facility])- Primary Generalized anxiety disorder Benign essential hypertension ([facility]) Essential hypertension, benign Class 2 severe obesity due to excess calories with serious comorbidity and body mass index (BMI) of 35.0 to 35.9 in adult ([facility])- Primary Type 2 diabetes mellitus with diabetic polyneuropathy, with long-term current use of insulin ([facility]/HCC) Long-term insulin use ([facility]/HCC) Benign essential hypertension (CMS/HCC)- Primary Essential hypertension, benign JARAD (generalized anxiety disorder) (CMS/HCC) Generalized anxiety disorder Bilateral leg edema Edema Lumbar spondylosis Lumbosacral spondylosis without myelopathy Benign essential hypertension (CMS/HCC)- Primary Essential hypertension, benign JARAD (generalized anxiety disorder) ([facility]/HCC) Generalized anxiety disorder Lumbar spondylosis Lumbosacral spondylosis without myelopathy Bilateral leg edema Edema Prostate cancer ([facility]) Malignant neoplasm of prostate Type 2 diabetes mellitus with hyperglycemia, with long-term current use of insulin ([facility]) Class 2 severe obesity due to excess calories with serious comorbidity and body mass index (BMI) of 35.0 to 35.9 in adult ([facility])- Primary Type 2 diabetes mellitus with hyperglycemia, with long-term current use of insulin ([facility]) Type 2 diabetes mellitus with diabetic polyneuropathy, with long-term current use of insulin ([facility]/HCC) Long-term insulin use ([facility]) Type 2 diabetes mellitus with stage 3a chronic kidney disease, with long-term current use of insulin ([facility]) ([facility]) Class 2 severe obesity due to excess calories with serious comorbidity and body mass index (BMI) of 35.0 to 35.9 in adult ([facility])- Primary Type 2 diabetes mellitus with diabetic polyneuropathy, with long-term current use of insulin ([facility]) Type 2 diabetes mellitus with stage 3a chronic kidney disease, with long-term current use of insulin (HCC) ([facility]/HCC) Long-term insulin use ([facility]) Benign essential hypertension ([facility]/HCC)- Primary Essential hypertension, benign JARAD (generalized anxiety disorder) ([facility]) Generalized anxiety disorder Lumbar spondylosis Lumbosacral spondylosis without myelopathy Type 2 diabetes mellitus with diabetic polyneuropathy, with long-term current use of insulin ([facility]/HCC) Type 2 diabetes mellitus with stage 3b chronic kidney disease, with long-term current use of insulin (HCC) ([facility]) S/P arthroscopy of left shoulder- Primary documented [facility] Diagnosis Type 2 diabetes mellitus with diabetic polyneuropathy, with long-term current use of insulin ([facility])- Primary Class 2 severe obesity due to excess calories with serious comorbidity and body mass index (BMI) of 35.0 to 35.9 in adult ([facility])- Primary Type 2 diabetes mellitus with diabetic polyneuropathy, with long-term current use of insulin ([facility]) Long-term insulin use ([facility]) Lumbar spondylosis- Primary Lumbosacral spondylosis without myelopathy Benign essential hypertension ([facility]) Essential hypertension, benign Bilateral leg edema Edema Class 2 severe obesity due to excess calories with serious comorbidity and body mass index (BMI) of 36.0 to 36.9 in adult ([facility] [place])- Primary Type 2 diabetes mellitus with diabetic polyneuropathy, with long-term current use of insulin ([facility]) Benign essential hypertension ([facility])- Primary Essential hypertension, benign Lumbar spondylosis Lumbosacral spondylosis without myelopathy Bilateral leg edema Edema Type 2 diabetes mellitus with diabetic polyneuropathy, with long-term current use of insulin ([facility]) Hypercholesteremia ([facility] [place]) Pure hypercholesterolemia Encounter for long-term (current) use of medications Encounter for long-term (current) use of other medications Obesity (BMI 30-39.9) Body mass index [BMI] 36.0-36.9, adult (Z68.36) JARAD (generalized anxiety disorder) ([facility])- Primary Generalized anxiety disorder Benign essential hypertension ([facility]) Essential hypertension, benign Class 2 severe obesity due to excess calories with serious comorbidity and body mass index (BMI) of 35.0 to 35.9 in adult ([facility])- Primary Type 2 diabetes mellitus with diabetic polyneuropathy, with long-term current use of insulin [facility] Benign essential hypertension ([facility])- Primary Essential hypertension, benign JARAD (generalized anxiety disorder) ([facility]) Generalized anxiety disorder Bilateral leg edema Edema Lumbar spondylosis Lumbosacral spondylosis without myelopathy Benign essential hypertension ([facility])- Primary Essential hypertension, benign JARAD (generalized anxiety disorder) ([facility]) Generalized anxiety disorder Lumbar spondylosis Lumbosacral spondylosis without myelopathy Bilateral leg edema Edema Prostate cancer ([facility]) Malignant neoplasm of prostate Type 2 diabetes mellitus with hyperglycemia, with long-term current use of insulin ([facility]) Class 2 severe obesity due to excess calories with serious comorbidity and body mass index (BMI) of 35.0 to 35.9 in adult ([facility])- Primary Type 2 diabetes mellitus with hyperglycemia, with long-term current use of insulin (CMS/[facility]) Type 2 diabetes mellitus with diabetic polyneuropathy, with long-term current use of insulin ([facility]/HCC) Long-term insulin use ([facility]) Type 2 diabetes mellitus with stage 3a chronic kidney disease, with long-term current use of insulin (HCC) ([facility]) Class 2 severe obesity due to excess calories with serious comorbidity and body mass index (BMI) of 35.0 to 35.9 in adult ([facility])- Primary Type 2 diabetes mellitus with diabetic polyneuropathy, with long-term current use of insulin ([facility]) Type 2 diabetes mellitus with stage 3a chronic kidney disease, with long-term current use of insulin (HCC) ([facility]) Long-term insulin use ([facility]) Benign essential hypertension ([facility])- Primary Essential hypertension, benign JARAD (generalized anxiety disorder) ([facility]) Generalized anxiety disorder Lumbar spondylosis Lumbosacral spondylosis without myelopathy Type 2 diabetes mellitus with diabetic polyneuropathy, with long-term current use of insulin ([facility]) Type 2 diabetes mellitus with stage 3b chronic kidney disease, with long-term current use of insulin (HCC) ([facility]) Class 2 severe obesity due to excess calories with serious comorbidity and body mass index (BMI) of 37.0 to 37.9 in adult ([facility])- Primary Type 2 diabetes mellitus with diabetic polyneuropathy, with long-term current use of insulin ([facility]) Type 2 diabetes mellitus with stage 3b chronic kidney disease, with long-term current use of insulin (HCC) ([facility]) Type 2 diabetes mellitus with hyperglycemia, with long-term current use of insulin ([facility]) documented in this encounter [facility] HealthcareEvaluation note* Diagnosis Obstructive sleep apnea syndrome- Primary Obstructive sleep apnea (adult) (pediatric) [facility] Diagnosis Obstructive sleep apnea syndrome Obstructive sleep apnea (adult) (pediatric) CSA (central sleep apnea) Unspecified sleep apnea [facility] Diagnosis Personal history of tobacco use, presenting hazards to health- Primary Obstructive sleep apnea syndrome Obstructive sleep apnea (adult) (pediatric) CSA (central sleep apnea) Unspecified sleep apnea [facility] Diagnosis Encounter for other preprocedural examination [facility] Diagnosis Obstructive sleep apnea syndrome- Primary Obstructive sleep apnea (adult) (pediatric) Personal history of tobacco use, presenting hazards to health [facility] Author Kike Bernal [facility] July 24, 2022 1:05pm Note Date/Time July 24, 2022 1 :05pm [facility] [address] [place] [address] Gastroenterology H&P Signed Patient: Milad Seymour MR#: [id number] : 1955 Acct:[id number] Age/Sex: 66 / M Adm Date: 3 Loc: Room: Type: [facility] Attending Dr: Kike Bernal MD Copies to: [...] <Electronically signed by Kike Bernal MD> 07/24/22 0243 [facility] Work Phone: History and physical note Author Kike Bernal [facility] April 27, 2023 11:41am Note Date/Time April 27, 2023 11:41am [facility] [address] [place] [address] Gastroenterology H&P Signed Patient: Milad Seymour MR#: [id number] : 1955 Acct:[id number] Age/Sex: 67 / M Adm Date: 3 Loc: Room: Type: [facility] Attending Dr: Kike Bernal MD Copies to: [...] Hospitalization History none in the last year [email or web address] Other Hospital course Narrative No data available for this section [facility] Hospital Discharge instructions Additional Instructions DISCHARGE [...] problems. -Follow up with PCP. -Office number [phone]. [facility] Work Phone: Hospital Discharge instructions No data available for this section [facility] Hospital Discharge instructions Additional Instructions DISCHARGE [...] in the office as scheduled -Office number [phone]. [facility] Work Phone: InstructionsNot on filedocumented in this encounter [facility] this [facility] on filedocumented in this encounter [facility] on filedocumented in this encounter [facility] No data available for this section [facility] reason for visit Narrative* Consultation (Routine) - Authorized Specialty Diagnoses / Procedures Referred By Anabel t Referred To Contact Physical Therapy Diagnoses S/P arthroscopy of left shoulder Procedures NE OFFICE/OUTPATIENT [facility] Rebecca Bonner PA [address] [place] [address] [address] Phone: tel: fax: Alma Berkowitz PT Referral ID Status Reason Start Date Expiration Date Visits Requested Visits Authorized [id number] Authorized Consult and Treat 05/13/2024 08/10/2024 12 12 [facility] Narrative* Consultation (Routine) - Closed Specialty Diagnoses / Procedures Referred By Contac t Referred To Contact Physical Therapy Diagnoses S/P arthroscopy of left shoulder Procedures NE OFFICE/OUTPATIENT [facility] Rebecca Dias PA [address] [place] [address] [address] Phone: tel: fax: Alma Berkowitz, PT Referral ID Status Reason Start Date Expiration Date V isits Requested Visits Authorized [id number] Closed Consult and Treat 05/13/2024 08/10/2024 12 12 [facility] HealthcareReason for visit Narrative* Rehabilitation - Outpatient (Routine) - Authorized Specialty Diagnoses / Procedures Referred By Contac t Referred To Contact Physical Therapy Diagnoses S/P arthroscopy of left shoulder Procedures NE THER PX 1/> AREAS EACH 15 MIN NEUROMUSC REEDUCA NE THERAPEUTIC PX 1/> AREAS EACH 15 MIN EXERCISES NE OFFICE/OUTPATIENT NEW HIGH MDM 60 MINUTES PHYS/OCC THERAPY SS Rebecca Dias, PA [address] [facility] [address] [place] [address] Phone: tel: fax: Alma Berkowitz, OSWALD Referral ID Status Reason Start Date Expiration Date V isits Requested Visits Authorized [id number] Authorized 07/01/2024 09/28/2024 12 12 [facility] Healthcare Summary Purpose Family History Relationship Condition [...] Advance Directives No October 11, 018 1:12pm Advance Directive Response Recorded Date/ [...] (irritable bowel syndrome) July 30, 2024 2:05pm Chief Complaint Admit Date 3 month follow up-diarrhea/constipation July 30, 2024 2:05pm R19.8 July 30, 2024 2:51pm 6 week follow up 2024 3:01 pm Reason for Referral Specialty Diagnoses / Procedures Referred By Contac t Referred To Contact Diagnoses Obstructive sleep apnea syndrome CSA (central sleep apnea) Procedures Polysomnography 4 or more parameters with PAP titration Gregoria Ralph, 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-ASSEMBLER PING PONG TABLE [address] [address] Referral ID Status Reason Start Date Expiration Date V isits Requested Visits Authorized [id number] Pending Review 08/15/2023 08/14/2024 1 1 Specialty Diagnoses / Procedures Referred By Contac t Referred To Contact Diagnoses Obstructive sleep apnea syndrome CSA (central sleep apnea) Procedures Echo complete W/O contrast Gregoria Ralph, 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-ASSEMBLER PING PONG TABLE [address] [facility], [address] [address] [facility]) - [facility] [address] [place] [address] Phone: [phone] Referral ID Status Reason Start Date Expiration Date V isits Requested Visits Authorized [id number] Authorized 08/15/2023 11/12/2023 1 1 Specialty Diagnoses / Procedures Referred By Contac t Referred To Contact Radiology Diagnoses Personal history of tobacco use, presenting hazards to health Procedures CT low dose lung screenin (3mo 6mo follow-up) Gregoria Ralph APRN-JALIL [address] [facility], [address] [place] [address] [facility] [address] [place] [address] Phone: [phone] Referral ID Status Reason Start Date Expiration Date V isits Requested Visits Authorized [id number] Authorized 08/16/2023 11/13/2023 1 1 Additional Source Comments (unrecognized sect ion and content) No Status Records FoundNo Status Records FoundNo Status Records FoundNo Status Records FoundNo Status Records FoundNo Status Records FoundNo Status Records FoundNo Status Records FoundNo Status Records Found INFORMATION SOURCE (unrecogn ized section and content) DATE CREATED AUTHOR 08/06/2021 [facility] DATE CREATED AUTHOR AUTHOR'S ORGANIZ ATION 10/24/2022 [facility] DATE CREATED AUTHOR AUTHOR'S ORGANIZ ATION 12/15/2023 [facility] DATE CREATED AUTHOR AUTHOR'S ORGANIZ ATION 02/05/2024 [facility] DATE CREATED AUTHOR AUTHOR'S ORGANIZ ATION 02/26/2024 [facility] DATE CREATED AUTHOR AUTHOR'S ORGANIZ ATION 03/19/2024 [facility] DATE CREATED AUTHOR AUTHOR'S ORGANIZ ATION 08/01/2024 [facility] DATE CREATED AUTHOR AUTHOR'S ORGANIZ ATION 08/02/2024 [facility] EPIC DATE CREATED AUTHOR AUTHOR'S ORGANIZ ATION 08/09/2024 [facility] Care Team (unrecognized sect ion and [...] July 17, 2023 End: July 17, 2023 Hat Measurer Relationship Specialty Start Date End Date Dank Campo MD [address] [place] [address] PCP - General Family Medicine 07/25/23 Hat Measurer Relationship Specialty Start Date End Date Dank Campo MD [address] [place] [address] PCP - General Family Medicine 07/25/23 Team [...] March 17, 2024 End: March 17, 2024 Hat Measurer Relationship Specialty Start Date End Date Dank Campo MD [address] [place] [address] PCP - General Family Medicine 08/17/23 Hat Measurer Relationship Specialty Start Date End Date Dank Campo MD [address] [place] [address] PCP - General Family Medicine 08/17/23 Hat Measurer Relationship Specialty Start Date End Date Dank Campo MD [address] [place] [address] PCP - General Family Medicine 08/17/23 Hat Measurer Relationship Specialty Start Date End Date Dank Campo MD [address] [place] [address] PCP - General Family Medicine 08/17/23 Hat Measurer Relationship Specialty Start Date End Date Dank Campo MD [address] [place] [address] PCP - General Family Medicine 08/17/23 Hat Measurer Relationship Specialty Start Date End Date Dank Campo MD [address] [place] [address] PCP - General Family Medicine 08/17/23 Hat Measurer Relationship Specialty Start Date End Date Dank Campo MD [address] [place] [address] PCP - General Family Medicine 08/17/23 Team Status: Inactive Member Role Status Dates Dank Campo MD Primary Care Provider Active S tart: April 15, 2024 End: April 15, 2024 Rich Alvares APRN Attending Provider Active Start: April 15, 2024 End: April 15, 2024 Hat Measurer Relationship Specialty Start Date End Date Dank Campo MD [address] [place] [address] PCP - General Family Medicine 08/17/23 Hat Measurer Relationship Specialty Start Date End Date Dank Campo MD [address] [place] [address] PCP - General Family Medicine 08/17/23 Hat Measurer Relationship Specialty Start Date End Date Dank Campo MD [address] [place] [address] PCP - General Family Medicine 08/17/23 Hat Measurer Relationship Specialty Start Date End Date Dank Campo MD [address] [place] [address] PCP - General Family Medicine 08/17/23 Hat Measurer Relationship Specialty Start Date End Date Dank Campo MD [address] [place] [address] PCP - General Family Medicine 08/17/23 Hat Measurer Relationship Specialty Start Date End Date Dank Campo MD [address] [place] [address] PCP - General Family Medicine 08/17/23 Hat Measurer Relationship Specialty Start Date End Date Dank Campo MD [address] [place] [address] PCP - General Family Medicine 08/17/23 Hat Measurer Relationship Specialty Start Date End Date Dank Campo MD [address] [place] [address] PCP - General Family Medicine 08/17/23 Hat Measurer Relationship Specialty Start Date End Date Dank Campo MD [address] [place] [address] PCP - General Family Medicine 08/17/23 Hat Measurer Relationship Specialty Start Date End Date Dank Campo MD [address] [place] [address] PCP - General Family Medicine 08/17/23 Hat Measurer Relationship Specialty Start Date End Date Dank Campo MD [address] [place] [address] PCP - General Family Medicine 08/17/23 Hat Measurer Relationship Specialty Start Date End Date Dank Campo MD [address] [place] [address] PCP - General Family Medicine 08/17/23 Hat Measurer Relationship Specialty Start Date End Date Dank Campo MD [address] [place] [address] PCP - General Family Medicine 08/17/23 Hat Measurer Relationship Specialty Start Date End Date Dank Campo MD [address] [place] [address] PCP - General Family Medicine 08/17/23 Hat Measurer Relationship Specialty Start Date End Date Dank Campo MD [address] [place] [address] PCP - General Family Medicine 08/17/23 Hat Measurer Relationship Specialty Start Date End Date Dank Campo MD [address] [place] [address] PCP - General Family Medicine 08/17/23 Hat Measurer Relationship Specialty Start Date End Date Dank Campo MD [address] [place] [address] PCP - General Family Medicine 08/17/23 Hat Measurer Relationship Specialty Start Date End Date Dank Campo MD [address] [place] [address] PCP - General Family Medicine 08/17/23 Hat Measurer Relationship Specialty Start Date End Date Dank Campo MD [address] [place] [address] PCP - General Family Medicine 08/17/23 Hat Measurer Relationship Specialty Start Date End Date Dank Campo MD [address] [place] [address] PCP - General Family Medicine 08/17/23 Hat Measurer Relationship Specialty Start Date End Date Dank Campo MD [address] [place] [address] PCP - General Family Medicine 08/17/23 Hat Measurer Relationship Specialty Start Date End Date Dank Campo MD [address] [place] [address] PCP - General Family Medicine 08/17/23 Hat Measurer Relationship Specialty Start Date End Date Dank Campo MD [address] [place] [address] PCP - General Family Medicine 08/17/23 Hat Measurer Relationship Specialty Start Date End Date Dank Campo MD [address] [place] [address] PCP - General Family Medicine 08/17/23 Hat Measurer Relationship Specialty Start Date End Date Dank Campo MD [address] [place] [address] PCP - General Family Medicine 08/17/23 Hat Measurer Relationship Specialty Start Date End Date Dank Campo MD [address] [place] [address] PCP - General Family Medicine 08/17/23 Hat Measurer Relationship Specialty Start Date End Date Dank Campo MD [address] [place] [address] PCP - General Family Medicine 08/17/23 Hat Measurer Relationship Specialty Start Date End Date Dank Campo MD [address] [place] [address] PCP - General Family Medicine 08/17/23 Hat Measurer Relationship Specialty Start Date End Date Dank Campo MD [address] [place] [address] PCP - General Family Medicine 08/17/23 Hat Measurer Relationship Specialty Start Date End Date Dank Campo MD [address] [place] [address] PCP - General Family Medicine 08/17/23 Hat Measurer Relationship Specialty Start Date End Date Dank Campo MD [address] [place] [address] PCP - General Family Medicine 08/17/23 Team Status: Inactive Member Role Status Dates Dank Campo MD Primary Care Provider Active S tart: July 30, 2024 End: July 30, 2024 Rich Alvares APRN Attending Provider Active Start: July 30, 2024 End: July 30, 2024 Hat Measurer Relationship Specialty Start Date End Date Dank Campo MD [address] [place] [address] PCP - General Family Medicine 08/17/23 Hat Measurer Relationship Specialty Start Date End Date Dank Campo MD [address] [place] [address] PCP - General Family Medicine 12/10/17 Hat Measurer Relationship Specialty Start Date End Date Dank Campo MD [address] [facility] [place] [address] PCP - General Family Medicine 12/10/17 Hat Measurer Relationship Specialty Start Date End Date Dank Campo MD [address] [facility] [place] [address] PCP - General Family Medicine 12/10/17 Hat Measurer Relationship Specialty Start Date End Date Dank Campo MD [address] [place] [place] [address] PCP - General Family Medicine 12/10/17 Hat Measurer Relationship Specialty Start Date End Date Dank Campo MD [address] [place] [address] PCP - General Family Medicine 12/10/17 Hat Measurer Relationship Specialty Start Date End Date Dank Campo MD [address] [place] [address] PCP - General Family Medicine 12/10/17 Hat Measurer Relationship Specialty Start Date End Date Dank Campo MD [address] [place] [address] PCP - General Family Medicine 12/10/17 Hat Measurer Relationship Specialty Start Date End Date Dank Campo MD [address] [place] [address] PCP - General Family Medicine 03/12/24 Hat Measurer Relationship Specialty Start Date End Date Dank Campo MD PCP - General Family Medicine 12/10/17 Hat Measurer Relationship Specialty Start Date End Date Dank Campo MD PCP - General Family Medicine 12/10/17 Team Status: Inactive Member Role Status Dates Dank Campo MD Primary Care Provider Active S tart: 2024 End: 2024 Rich Alvares APRN Attending Provider Active Start: 2024 End: 2024 REASON FOR VISIT (unrecogniz ed section [...] more parameters with PAP titration 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 PING PONG TABLE [address] [facility], [address] [place] [address] Referral ID Status Reason Start Date Expiration Date Visits Re quested Visits Authorized [id number] Closed 08/15/2023 08/14/2024 1 1 Reason Comments Sleep Apnea DME: [facility] Specialty Diagnoses / Procedures Referred By Anabel salinas Referred To Contact Pulmonary Medicine / Sleep Medicine Diagnoses Obstructive sleep apnea syndrome Jyoti Roth APRN-ASSEMBLER PING PONG TABLE [address] [place] [address] [facility] Pul Sleep Med [facility] [place] [address] Referral ID Status Reason Start Date Expiration Date Visits Requested Visits Authorized [id number] Pending Review Specialty Services Required 08/13/2023 08/12/2024 [...] BE BASED ON THE PRIMARY CLINICAL RECORDS. [facility] [employer] [facility]. provides no warranty or guarantee of the accuracy or completeness of information in this document.
--- NOTE | 2024-09-24 09:01 | PM.CN ---
Consult Note: HPI Data of Consult Patient: known to practice within the last 3 years Consult date: 07/21/24 Requesting Physician: Sandra Vu NP Primary Care Provider: Dank Bella MD Consult Narrative Reason for consult: low back pain, bilateral foot pain Narrative: 69yom who presents for assessment. notes persistence of pain throughout low back, bilateral knees, and chronic painful diabetic polyneuropathy. knee xrays should severe bilateral knee osteoarthritis. lumbar xr shows extensive facet arthropathy. denies adverse med side effects. continue in >6 weeks of provider directed home exercises, without benefit. pt recently underwent bilateral L3/4 L4/5 facet RFA with less than 50% improvement at this time, remains in healing phase. cc:: CC: Sandra Vu NP Review of Systems ROS Status of ROS 10 or more systems reviewed and unremarkable except as noted in history and below Musculoskeletal Reports: back pain and extremity pain PFSH PFS Medical History Low back pain ?M54.50 - Low back pain, unspecified (ICD-10) Neck pain ?M54.2 - Cervicalgia (ICD-10) Osteoarthritis ?M19.90 - Unspecified osteoarthritis, unspecified site (ICD-10) Anxiety ?F41.9 - Anxiety disorder, unspecified (ICD-10) Heartburn ?R12 - Heartburn (ICD-10) Hiatal hernia ?K44.9 - Diaphragmatic hernia without obstruction or gangrene (ICD-10) Acid reflux ?K21.9 - Gastro-esophageal reflux disease without esophagitis (ICD-10) Prostate cancer ?C61 - Malignant neoplasm of prostate (ICD-10) Enlarged prostate ?N40.0 - Benign prostatic hyperplasia without lower urinary tract symptoms (ICD-10) Diabetes ?E11.9 - Type 2 diabetes mellitus without complications (ICD-10) History of home ventilator ?Z99.11 - Dependence on respirator [ventilator] status (ICD-10) Smoker ?F17.200 - Nicotine dependence, unspecified, uncomplicated (ICD-10) Sleep apnea ?G47.30 - Sleep apnea, unspecified (ICD-10) COPD (chronic obstructive pulmonary disease) ?J44.9 - Chronic obstructive pulmonary disease, unspecified (ICD-10) Heart murmur ?R01.1 - Cardiac murmur, unspecified (ICD-10) Irregular heart beat ?I49.9 - Cardiac arrhythmia, unspecified (ICD-10) High cholesterol ?E78.00 - Pure hypercholesterolemia, unspecified (ICD-10) Hypertension ?I10 - Essential (primary) hypertension (ICD-10) Surgical History S/P foot surgery ?Z98.890 - Other specified postprocedural states (ICD-10) Hx laparoscopic cholecystectomy ?Z90.49 - Acquired absence of other specified parts of digestive tract (ICD-10) S/P shoulder surgery ?Z98.890 - Other specified postprocedural states (ICD-10) S/P left knee arthroscopy ?Z98.890 - Other specified postprocedural states (ICD-10) History of appendectomy ?Z90.49 - Acquired absence of other specified parts of digestive tract (ICD-10) Meds Home Medications and Allergies Home Medications ?Medication ?Instructions ?Recorded ?Confirmed ?Type aspirin 81 mg capsule 81 mg PO DAILY 10/02/23 08/18/24 History celecoxib 200 mg capsule mg 10/02/23 History insulin glargine 100 unit/mL 65 unit subcut DAILY 10/02/23 08/18/24 History subcutaneous solution (Lantus U-100 Insulin) insulin lispro 100 unit/mL subcut 10/02/23 History subcutaneous pen lansoprazole 30 mg capsule,delayed mg 10/02/23 History release lisinopril 10 mg tablet mg 10/02/23 History loperamide 2 mg capsule mg 10/02/23 History magnesium oxide 400 mg (241.3 mg mg 10/02/23 History magnesium) tablet metoprolol succinate 50 mg mg PO 10/02/23 History tablet,extended release 24 hr simvastatin 40 mg tablet mg 10/02/23 History semaglutide 1 mg/dose (4 mg/3 mL) 1 mg subcut QWEEK 11/05/23 08/18/24 History subcutaneous pen injector (Ozempic) gabapentin 300 mg capsule 300 mg PO BID #60 caps 02/28/24 08/18/24 Rx fluoxetine 20 mg capsule 20 mg PO DAILY 04/15/24 08/18/24 History tizanidine 4 mg tablet mg 07/14/24 History gabapentin 300 mg capsule 300 mg PO BID #60 caps 09/11/24 Rx Allergies Allergy/AdvReac Type Severity Reaction Status Date / Time No Known Drug Allergies Allergy Verified 08/18/24 07:07 Exam Constitutional Documenting provider has reviewed patient's vital signs: yes Common normals: no apparent distress, oriented x3, healthy appearing, alert and well nourished General appearance: cooperative [facility] Common normals: normocephalic, hearing grossly normal bilaterally and moist oral mucous membranes Head and scalp: normocephalic Eye Common normals: PERRL Pupil: PERRL Neck & C-Spine Common normals: full ROM General: normal visual inspection Chest Common normals: inspection of chest normal Respiratory Common normals: normal respiratory effort, no retractions and no use of accessory muscles Back & Pelvis Lumbar spine/lower back: lumbar ROM normal and straight leg raise negative bilaterally; no pain with ROM, no lumbar spinal tenderness and no paraspinal muscle tenderness Other: negative facet loading strength 5/5 in BLE Extremity Right lower extremity: ankle joint and foot and digits Left lower extremity: ankle joint and foot and digits Other: full ROM to bilateral feet/ankles. decreased sensation to bilateral soles of feet and with proprioception of digits on bilateral feet. warm to touch without redness edema or sores. Neuro Common normals: oriented x3 Sensorium/orientation: alert Psych Common normals: mental status grossly normal, thought process normal, cooperative, affect normal, speech normal and activity/motor behavior normal Speech: normal speech Thought process: normal thought process Assessment and Plan Assessment and Plan (1) Lumbar spondylosis: Assessment and Plan: significant improvement on exam LUIGI 18% briefly discussed spinal cord stim trial should pain fail to improve, however on exam significant improvement in facet mediated pain. (2) Painful diabetic neuropathy: Assessment and Plan: pt has failed to benefit from topical lidocaine treatments. finds benefit to gabapentin 300mg BID but is interested in coming off of this medication. as previously discussed and recommended we can trial qutenza topical treatments to bilateral feet q3 months with expectations that it can take 4+ treatments to find benefit for painful diabetic neuropathy. risks vs benefits reviewed. pt agreeable. (3) Bilateral knee pain: Qualifiers: Chronicity: chronic Qualified Code(s): M25.561 - Pain in right knee; M25.562 - Pain in left knee; G89.29 - Other chronic pain (4) Bilateral primary osteoarthritis of knee: (5) Lumbar stenosis with neurogenic claudication: Plan f/u 1 month to assess delayed response to lumbar RFA continue current medications proceed with qutenza treatments to bilateral feet in office 1 treatment q3 months to improve chronic painful diabetic neuropathy
== END 2024-09-24 08:09 | disposition home or self-care (01) ==
LOC: PM 08:09
PROVIDERS: PCP Family Medicine; Visit Provider Nurse Practitioner
DX: M47.816 Spondylosis without myelopathy or radiculopathy, lumbar region (principal); E11.40 Type 2 diabetes mellitus with diabetic neuropathy, unspecified; M25.561 Pain in right knee; M25.562 Pain in left knee; G89.29 Other chronic pain; M17.0 Bilateral primary osteoarthritis of knee; M48.062 Spinal stenosis, lumbar region with neurogenic claudication
CPT/HCPCS: G0463

== ENCOUNTER 2024-10-29 09:42 | Outpatient (OUT) | payer MEDICARE, SELFPAY ==
--- NOTE | 2024-10-29 10:18 | PM.CN ---
Consult Note: HPI Data of Consult Patient: known to practice within the last 3 years Consult date: 10/29/24 Requesting Physician: Sandra Vu NP Primary Care Provider: Dank Bella MD Consult Narrative Reason for consult: low back pain, bilateral foot pain Narrative: 69yom who presents for assessment. notes persistence of pain throughout low back, bilateral knees, and chronic painful diabetic polyneuropathy. knee xrays should severe bilateral knee osteoarthritis. lumbar xr shows extensive facet arthropathy. denies adverse med side effects. continue in >6 weeks of provider directed home exercises, without benefit. pt recently underwent bilateral L3/4 L4/5 facet RFA with less than 50% improvement at this time per pt cc:: CC: Sandra Vu NP Review of Systems ROS Status of ROS 10 or more systems reviewed and unremarkable except as noted in history and below Musculoskeletal Reports: back pain and extremity pain PFSH PFSH Medical History Low back pain ?M54.50 - Low back pain, unspecified (ICD-10) Neck pain ?M54.2 - Cervicalgia (ICD-10) Osteoarthritis ?M19.90 - Unspecified osteoarthritis, unspecified site (ICD-10) Anxiety ?F41.9 - Anxiety disorder, unspecified (ICD-10) Heartburn ?R12 - Heartburn (ICD-10) Hiatal hernia ?K44.9 - Diaphragmatic hernia without obstruction or gangrene (ICD-10) Acid reflux ?K21.9 - Gastro-esophageal reflux disease without esophagitis (ICD-10) Prostate cancer ?C61 - Malignant neoplasm of prostate (ICD-10) Enlarged prostate ?N40.0 - Benign prostatic hyperplasia without lower urinary tract symptoms (ICD-10) Diabetes ?E11.9 - Type 2 diabetes mellitus without complications (ICD-10) History of home ventilator ?Z99.11 - Dependence on respirator [ventilator] status (ICD-10) Smoker ?F17.200 - Nicotine dependence, unspecified, uncomplicated (ICD-10) Sleep apnea ?G47.30 - Sleep apnea, unspecified (ICD-10) COPD (chronic obstructive pulmonary disease) ?J44.9 - Chronic obstructive pulmonary disease, unspecified (ICD-10) Heart murmur ?R01.1 - Cardiac murmur, unspecified (ICD-10) Irregular heart beat ?I49.9 - Cardiac arrhythmia, unspecified (ICD-10) High cholesterol ?E78.00 - Pure hypercholesterolemia, unspecified (ICD-10) Hypertension ?I10 - Essential (primary) hypertension (ICD-10) Surgical History S/P foot surgery ?Z98.890 - Other specified postprocedural states (ICD-10) Hx laparoscopic cholecystectomy ?Z90.49 - Acquired absence of other specified parts of digestive tract (ICD-10) S/P shoulder surgery ?Z98.890 - Other specified postprocedural states (ICD-10) S/P left knee arthroscopy ?Z98.890 - Other specified postprocedural states (ICD-10) History of appendectomy ?Z90.49 - Acquired absence of other specified parts of digestive tract (ICD-10) Meds Home Medications and Allergies Home Medications ?Medication ?Instructions ?Recorded ?Confirmed ?Type aspirin 81 mg capsule 81 mg PO DAILY 10/02/23 08/18/24 History celecoxib 200 mg capsule mg 10/02/23 History insulin glargine 100 unit/mL 65 unit subcut DAILY 10/02/23 08/18/24 History subcutaneous solution (Lantus U-100 Insulin) insulin lispro 100 unit/mL subcut 10/02/23 History subcutaneous pen lansoprazole 30 mg capsule,delayed mg 10/02/23 History release lisinopril 10 mg tablet mg 10/02/23 History loperamide 2 mg capsule mg 10/02/23 History magnesium oxide 400 mg (241.3 mg mg 10/02/23 History magnesium) tablet metoprolol succinate 50 mg mg PO 10/02/23 History tablet,extended release 24 hr simvastatin 40 mg tablet mg 10/02/23 History semaglutide 1 mg/dose (4 mg/3 mL) 1 mg subcut QWEEK 11/05/23 08/18/24 History subcutaneous pen injector (Ozempic) gabapentin 300 mg capsule 300 mg PO BID #60 caps 02/28/24 08/18/24 Rx fluoxetine 20 mg capsule 20 mg PO DAILY 04/15/24 08/18/24 History tizanidine 4 mg tablet mg 07/14/24 History gabapentin 300 mg capsule 300 mg PO BID #60 caps 09/11/24 Rx Allergies Allergy/AdvReac Type Severity Reaction Status Date / Time No Known Drug Allergies Allergy Verified 08/18/24 07:07 Exam Constitutional Documenting provider has reviewed patient's vital signs: yes Common normals: no apparent distress, oriented x3, healthy appearing, alert and well nourished General appearance: cooperative [facility] Common normals: normocephalic, hearing grossly normal bilaterally and moist oral mucous membranes Head and scalp: normocephalic Eye Common normals: PERRL Pupil: PERRL Neck & C-Spine Common normals: full ROM General: normal visual inspection Chest Common normals: inspection of chest normal Respiratory Common normals: normal respiratory effort, no retractions and no use of accessory muscles Back & Pelvis Lumbar spine/lower back: lumbar ROM normal and straight leg raise negative bilaterally; no pain with ROM, no lumbar spinal tenderness and no paraspinal muscle tenderness Other: negative facet loading strength 5/5 in BLE increased low back pain with standing, walking, yard work. pain improved with sitting and forward flexion Extremity Right lower extremity: ankle joint and foot and digits Left lower extremity: ankle joint and foot and digits Other: full ROM to bilateral feet/ankles. decreased sensation to bilateral soles of feet and with proprioception of digits on bilateral feet. warm to touch without redness edema or sores. Neuro Common normals: oriented x3 Sensorium/orientation: alert Psych Common normals: mental status grossly normal, thought process normal, cooperative, affect normal, speech normal and activity/motor behavior normal Speech: normal speech Thought process: normal thought process Results Additional Findings Additional findings: If on a controlled substance or opioids, I have checked an [place] report on this patient and there are no aberrancies noted in the prescribing history.??If on a controlled substance or opioid a drug screen was completed and reviewed within the last year, and if there has not been a drug screen completed we ordered one today to monitor higher risk, state monitored pain medication use. As part of providing excellent, safe, comprehensive care, the following was completed at our patient's visit: 1. A medication reconciliation and review to ensure accurate knowledge of current/active medications, including asking our patients to inform us about any [id number] medications or herbal remedies/nutritional supplements/alternative remedies. 2. A review to specifically ensure our patients have had annual screening for screening for depression, screening for tobacco use, and screening for unhealthy alcohol use. For concerning screenings had a discussion with the patient, provided patient education, and recommended follow-up with primary care provider when appropriate. If patient noted with a risk of falling, they received education on strength, gait, and balance training to prevent future risk of falling. Portions of this note may have been carried over from the previous visit and updated as appropriate. Please note this office utilizes paper charting in addition to the electronic medical record. A list of current medications, vitals, and PMH is available there as the clinical staff outside of myself do not have access to [employer] charting during the clinic day operations. As part of providing quality comprehensive care the current medications, vitals, and PMH were reviewed in the paper chart. Assessment and Plan Assessment and Plan (1) Lumbar spondylosis: Assessment and Plan: significant improvement on exam LUIGI 186% (2) Painful diabetic neuropathy: (3) Bilateral knee pain: Qualifiers: Chronicity: chronic Qualified Code(s): M25.561 - Pain in right knee; M25.562 - Pain in left knee; G89.29 - Other chronic pain (4) Bilateral primary osteoarthritis of knee: (5) Lumbar stenosis with neurogenic claudication: Plan insurance would not cover qutenza treatments declining lumbar MRI without contrast with IV sedation at this time declining scs trial at this time continue current medications f/u 3 months
== END 2024-10-29 09:43 | disposition home or self-care (01) ==
LOC: PM 09:43
PROVIDERS: PCP Family Medicine; Visit Provider Nurse Practitioner
DX: M47.816 Spondylosis without myelopathy or radiculopathy, lumbar region (principal); E11.40 Type 2 diabetes mellitus with diabetic neuropathy, unspecified; M25.561 Pain in right knee; M25.562 Pain in left knee; M17.0 Bilateral primary osteoarthritis of knee; M48.062 Spinal stenosis, lumbar region with neurogenic claudication; G89.29 Other chronic pain
CPT/HCPCS: G0463

== ENCOUNTER 2025-01-28 09:26 | Outpatient (OUT) | payer MEDICARE, SELFPAY ==
--- OUTSIDE RECORDS SUMMARY | 2025-01-28 09:29 | XMS_ITS | Encounter Summary ---
Author Organization [facility] Address [address] [place] [address] Care Team Providers Care Rehab Liaison Name Role Phone Dank Bella MD Primary Care Provider [phone] Dank Bella MD Unavailable Encounter Details Date Type Department Care Team (Late st Contact Info) Description 11/22/2023 Abstract [facility] [address] [place] [id number] Matthew Krishnamurthy DPM [address] [place], [place] [id number] Social History Tobacco Use Types Packs/Day Years Used Date Smoking Tobacco: Former Cigarettes Smokeless Tobacco: Never Comments:Last smoked: 3-6 mo nths ago Heavy cigarette smoker (20-39 cigs/day) Alcohol Use Standard Drinks/Week Comments Not Currently 0 (1 standard drink = 0.6 oz pur e alcohol) Caffeine intake: none Humiliation, Afraid, Rape, and Kick questionnair e Answer Date Recorded Within the last year, have y ou been afraid of your partner or ex-partner? No 01/09/2023 Within the last year, have y ou been humiliated or emotionally abused in other ways by your partner or ex-partner? No Within the last year, have y ou been kicked, hit, slapped, or otherwise physically hurt by your partner or ex-partner? No 01/09/2023 Within the last year, have y ou been raped or forced to have any kind of sexual activity by your partner or ex-partner? No 01/09/2023 Social Connection and Isolation Panel [NHANES] A nswer Date Recorded In a typical week, how many times do you talk on the phone with family, friends, or neighbors? Three times a week 01/10/20 How often do you get togethe r with friends or relatives? Twice a week 01/09/2023 How often do you attend chur or yazidi services? Never 01/09/2023 Do you belong to any clubs o r organizations such as tenriism groups, unions, fraternal or athletic groups, or school groups? Yes 01/09/2023 How often do you attend meet ings of the clubs or organizations you belong to? 1 to 4 times per year 01/09/2023 Are you , , di vorced, , never , or living with a partner? 01/09/2023 AUDIT-C Answer Date Recorded Q1: How often do you have a drink containing alcohol? Never 01/09/2023 Q2: How many drinks containi ng alcohol do you have on a typical day when you are drinking? Patient does not drink Q3: How often do you have si x or more drinks on one occasion? Never 01/09/2023 Overall Financial Resource Strain (CARDIA) Answe r Date Recorded How hard is it for you to pa y for the very basics like food, housing, medical care, and heating? Not hard at all 01/09/2023 PHQ-2 Answer Date Recorded Patient Health Questionnaire-2 Score 0 01/16/2023 [facility] - Occupational Stress Questionnaire Answer Date Recorded Do you feel stress - tense, restless, nervous, or anxious, or unable to sleep at night because your mind is troubled all the time - these days? Not at all 01/09/2023 Exercise Vital Sign Answer Date Recorde d On average, how many days pe r week do you engage in moderate to strenuous exercise (like a brisk walk)? 4 days 01/09/2023 On average, how many minutes do you engage in exercise at this level? 30 min 01/09/2023 Hunger Vital Sign Answer Date Recorded Within the past 12 months, y ou worried that your food would run out before you got the money to buy more. Never true 01/10/20 23 Within the past 12 months, t he food you bought just didn't last and you didn't have money to get more. Never true 01/09/2023 PRAPARE - Transportation Answer Date Re corded Lack of Transportation (Medical) Not on file 01/09/2023 In the past 12 months, has l ack of transportation kept you from meetings, work, or from getting things needed for daily living? No 01/09/2023 Housing Stability Vital Sign Answer Gerard e Recorded In the last 12 months, was t here a time when you were not able to pay the mortgage or rent on time? No 01/09/2023 In the last 12 months, how many places have you lived? 1 01/09/2023 In the last 12 months, was t here a time when you did not have a steady place to sleep or slept in a snf (including now)? No 01/09/2023 Sex and Gender Information Value Date Recorded Sex Assigned at Not on file Legal Sex Male 6:42 PM EDT Gender Identity Not on file Sexual Orientation Not on file documented as of this encounter Plan of Treatment Upcoming Encounters Date Type Department Care Team (Late st Contact Info) Description 01/28/2025 11:10 AM EDT Office Visit [facility] [address] [place] [address] Deb Matthew MD [address] [place] [address] documented as of this encounter Visit Diagnoses Not on filedocumented in this encounter Care Teams Rehab Liaison Relationship Specialty Start Date End Date Dank Bella MD [address] [place] [address] PCP - General Family Medicine 08/17/23 Dank Bella MD [address] [place] [address] OMER Mccullough MA 06/18/24 12/15/24 documented as of this encounter
--- OUTSIDE RECORDS SUMMARY | 2025-01-28 09:29 | XMS_ITS | Encounter Summary ---
Author Organization [facility] Address [address] [place] [address] Care Team Providers Care Photo Technician Name Role Phone Ashli Joseph DO Primary Care Provider [phone] Dank Bella MD Primary Care Provider [phone] Dank Bella MD Unavailable Encounter Details Date Type Department Care Team (Late st Contact Info) Description 08/13/2023 [facility] [address] [facility] [place] [phone] Matthew Krishnamurthy DPM [address] [place], [place] [id number] Social History Tobacco Use Types Packs/Day Years [...] 01/09/2023 How often do you attend chur ch or temple services? Never 01/09/2023 Do you belong to any clubs o r organizations such as taoism groups, unions, fraternal or athletic groups, or [...] Recorded Patient Health Questionnaire-2 Score 0 01/16/2023 [facility] - Occupational Stress [...] place to sleep or slept in a long-term (including now)? No 01/09/2023 Sex and Gender Information Value Date Recorded Sex Assigned at Not on file Legal Sex Male 6:42 PM EDT Gender Identity Not on file Sexual Orientation Not on file documented as of this encounter Plan of Treatment Upcoming Encounters Date Type Department Care Team (Late st Contact Info) Description 01/28/2025 11:10 AM EDT Office Visit [facility] [address] [place] [address] Deb Matthew MD [address] [place] [address] documented as of this encounter Visit Diagnoses Not on filedocumented in this encounter Care Teams Photo Technician Relationship Specialty Start Date End Date Ashli Joseph DO [address] [place] [address] PCP - General Family Medicine 08/13/23 08/16/23 Dank eBlla MD [address] [place] [phone] PCP - General Family Medicine 08/17/23 Dank Bella MD [address] [place] [phone] PCP - Sadia ARMSTRONG 06/18/24 12/15/24 documented as of this encounter
--- OUTSIDE RECORDS SUMMARY | 2025-01-28 09:29 | XMS_ITS | Encounter Summary ---
Author Organization [facility] Address [address] [place] [address] Care Team Providers Care Procedure Manager Name Role Phone Dank Bella MD Primary Care Provider [phone] Reason for Visit * Reason Comments Med Refill Encounter Details Date Type Department Care Team (Late st Contact Info) Description 01/15/2025 [facility] [address] [place] [address] Dank Bella MD [address] [place] [address] Hypomagnesemia Social History Tobacco Use Types Packs/Day Years [...] How often do you attend chur or sikhism services? Never 01/09/2023 Do you belong to any clubs o r organizations such as spiritism groups, unions, fraternal or athletic groups, or [...] Date Recorded Patient Health Questionnaire-2 Score 0 07/31/2024 [facility] - [...] place to sleep or slept in a fdc (including now)? No 01/09/2023 Sex and Gender Information Value Date Recorded Sex Assigned at Not on file Legal Sex Male 6:42 PM EDT Gender Identity Not on file Sexual Orientation Not on file documented as of this encounter Miscellaneous Notes * Telephone Encounter - ABBI KING - 01/15/2025 11:55 AM EDT MEDICATION SENT TO [facility] documented in this encounter Plan of Treatment Upcoming Encounters Date Type Department Care Team (Late st Contact Info) Description 01/28/2025 11:10 AM EDT Office Visit [facility] [address] [place] [address] Deb Matthew MD [address] [place] [address] documented as of this encounter Visit Diagnoses Diagnosis Hypomagnesemia Disorders of magnesium metabolism Type 2 diabetes mellitus with hyperglycemia, with long-term current use of insulin (HCC) documented in this encounter Care Teams Procedure Manager Relationship Specialty Start Date End Date Dank Bella MD [address] [place] [phone] PCP - General Family Medicine 08/17/23 documented as of this encounter
--- OUTSIDE RECORDS SUMMARY | 2025-01-28 09:29 | XMS_ITS | Encounter Summary ---
Author Organization [facility] Address [address] [place] [address] Care Team Providers Care Isotope Hydrologist Name Role Phone Dank Bella MD Primary Care Provider [phone] Dank Bella MD Unavailable Encounter Details Date Type Department Care Team (Late st Contact Info) Description 08/20/2023 Abstract [facility] [address] [place] [id number] Christofer Krishnamurthy [facility] [address] [place], [place] [id number] Social History Tobacco Use Types Packs/Day Years [...] How often do you attend chur or sabianist services? Never 01/09/2023 Do you belong to any clubs o r organizations such as christianity groups, unions, fraternal or athletic groups, or [...] Recorded Patient Health Questionnaire-2 Score 0 01/16/2023 [facility] of Occupat ional Health - Occupational Stress [...] place to sleep or slept in a penitentiary (including now)? No 01/09/2023 Sex and Gender Information Value Date Recorded Sex Assigned at Not on file Legal Sex Male 6:42 PM EDT Gender Identity Not on file Sexual Orientation Not on file documented as of this encounter Plan of Treatment Upcoming Encounters Date Type Department Care Team (Late st Contact Info) Description 01/28/2025 11:10 AM EDT Office Visit [facility] [address] [place] [address] Deb Matthew MD [address] [place] [address] documented as of this encounter Visit Diagnoses Not on filedocumented in this encounter Care Teams Isotope Hydrologist Relationship Specialty Start Date End Date Dank Bella MD [address] [place] [address] PCP - General Family Medicine 08/17/23 Dank Bella MD [address] [place] [address] OMER Mccullough MA 06/18/24 12/15/24 documented as of this encounter
--- OUTSIDE RECORDS SUMMARY | 2025-01-28 09:29 | XMS_ITS | Clinical Summary ---
Author Organization [facility] Address [address] [place] [address] Care Team Providers Care Early Childhood Teacher Assistant Name Role Phone Dank Bella MD Primary Care Provider [phone] Allergies No known active allergies Medications ASPIRIN 81 MG chewable tablet Chew 81 mg Daily Active Lancets (OneTouch Delica Plus [id number]) misc use to test BLOOD SUGAR THREE TIMES DAILY 023 Active lansoprazole (Prevacid) [address] capsule lansoprazole 30 mg capsule,delayed release Active fluorometholone (FML) 0.1 % ophthalmic suspension instill 1 (ONE) DROP IN BOTH EYES FOUR TIMES DAILY FOR 7 DAYS then instill 1 (ONE) DROP IN BOTH EYES TWICE DAILY FOR 7 DAYS 023 Active semaglutide (Ozempic, 1 MG/DOSE,) 4 MG/3ML solution pen-injectorIndic ations:Type 2 diabetes mellitus with diabetic polyneuropathy, with long-term current use of insulin (HCC) Inject 1 mg under the skin 1 (one) time per week 9 mL 3 024 Active loperamide (Imodium) 2 MG capsule TAKE 1 CAPSULE BY MOUTH TWICE DAILY NEEDED Active triamcinolone (Kenalog) 0.1 % cream APPLY TO THE AFFECTED AREA(S) (PSORIASIS ON TRUNK AND ALL EXTREMITIES) DAILY NEEDED SUNDAY THROUGH SUNDAY DO NOT USE ON FACE) 024 Active tildrakizumab (Ilumya) 100 MG/ML injection Inject under the skin 024 Active tiZANidine (Zanaflex) 4 MG tabletIndications :Lumbar spondylosis Take 1 tablet (4 mg) by mouth 3 (three) times a day as needed for muscle spasms 60 tablet 3 024 Active FLUoxetine (PROzac) 40 MG capsuleIndication s:JARAD (generalized anxiety disorder) Take 1 capsule (40 mg) by mouth Daily 90 capsule 3 024 Active Continuous Glucose Sensor (Dexcom G7 Sensor) miscIndications:T ype 2 diabetes mellitus with diabetic polyneuropathy, with long-term current use of insulin ([facility]) USE DIRECTED to check BLOOD SUGAR *change EVERY TEN days * 9 each 3 024 Active amoxicillin (Amoxil) 875 MG tablet TAKE 1 TABLET BY MOUTH TWICE DAILY UNTIL GONE 025 Active gabapentin (Neurontin) 300 MG capsule Take 300 mg by mouth in the morning and 300 mg before bedtime. 025 Active insulin lispro (HumaLOG) 100 UNIT/ML injectionIndicati ons:Type 2 diabetes mellitus with diabetic polyneuropathy, with long-term current use of insulin ([facility]) INJECT 18 UNITS BREAKFAST/LUNCH, 35 units DINNER PLUS CORRECTIONS OF 1:30 > 150MG/DL ( MAX 100 UNITS A DAY) 90 mL 3 025 Active metoprolol succinate XL (Toprol-XL) 50 MG 24 hr tabletIndications :Ventricular premature depolarization TAKE 1 TABLET BY MOUTH DAILY 30 tablet 5 025 Active insulin glargine (Lantus SoloStar) 100 UNIT/ML penIndications:Ty pe 2 diabetes mellitus with diabetic polyneuropathy, with long-term current use of insulin ([facility]) INJECT 70 UNITS SUBCUTANEOUSLY AT BEDTIME 60 mL 3 025 Active celecoxib (CeleBREX) 200 MG capsuleIndication s:Lumbago with sciatica, right side Take 1 capsule (200 mg) by mouth in the morning and 1 capsule (200 mg) before bedtime. 60 capsule 5 025 Active lisinopril 10 MG tabletIndications :Essential (primary) hypertension TAKE 1 TABLET BY MOUTH TWICE DAILY 60 tablet 5 025 Active simvastatin (Zocor) 40 MG tabletIndications :Hyperlipidemia, unspecified TAKE 1 TABLET BY MOUTH AT BEDTIME 30 tablet 5 025 Active glucose blood (OneTouch Ultra) test stripIndications: Type 2 diabetes mellitus with diabetic polyneuropathy, with long-term current use of insulin ([facility]) Fsbs bid 200 each 3 025 Active insulin pen needle (Drug Rugby Unifine Pentips) 31G x 5 mm miscIndications:T ype 2 diabetes mellitus with hyperglycemia, without long-term current use of insulin ([facility]) USE DIRECTED FOUR TIMES DAILY 100 each 3 025 Active magnesium oxide (Mag-Ox) 400 (240 Mg) MG tabletIndications :Hypomagnesemia TAKE 1 TABLET BY MOUTH DAILY 30 tablet 5 025 Active magnesium oxide (Mag-Ox) 400 (240 Mg) MG tabletIndications :Hypomagnesemia TAKE 1 TABLET BY MOUTH DAILY 30 tablet 5 025 2024 Discontinued insulin pen needle (Drug Rugby Unifine Pentips) 31G x 5 mm miscIndications:T ype 2 diabetes mellitus with hyperglycemia, without long-term current use of insulin ([facility]) USE DIRECTED FOUR TIMES DAILY 100 each 3 025 2024 Discontinued Active Problems Problem Noted Date Diagnosed Date Type 2 diabetes mellitus wit h hyperglycemia, with long-term current use of insulin 07/31/2024 Type 2 diabetes mellitus wit h stage 3b chronic kidney disease, with long-term current use of insulin 01/31/2024 Assessment & Plan (05/28/2024 8:21 AM EST): Renal function stable. Continue lisinopril and ozempic. JARAD (generalized anxiety disorder) 10/11/2023 Assessment & Plan (05/28/2024 8:18 AM EST): Worsening symptoms and increase prozac. Warned will take 2-3 weeks to notice improvement in mood. Use valium PRN. Assessment & Plan (12/05/2023 9:08 AM EDT): Symptoms controlled with prozac and continue at current dose. Use valium PRN. Assessment & Plan (11/14/2023 8:47 AM EDT): Symptoms improved with prozac and continue at current dose. Use valium PRN. Assessment & Plan (10/11/2023 10:52 AM EDT): Worsening symptoms and start prozac. Warned will take 2-3 weeks to notice improvement in mood. Start valium PRN and warned of possible sedation. Foot drop, right 10/09/2023 Lumbar radiculopathy 10/09/2023 Cervical radiculopathy 10/09/2023 Family history of Parkinson's disease 10/09/2023 FRANK (obstructive sleep apnea) 10/04/2023 Overview (10/04/2023): History of FRANK treated with CPAP. Despite nightly CPAP use, the patient reports chronic daytime hypersomnolence. I question if this is related to inadequate sleep (the patient reports sleeping only 6 hours per night). However, it is also possible the patient may benefit from an updated sleep study and/or CPAP titration. PLAN: - Follow up with sleep medicine for evaluation and management. I provided the patient with the phone number to schedule an appointment - I encouraged CPAP compliance - Sleep hygiene and smoking cessation discussed Chronic fatigue 10/04/2023 Overview (10/04/2023): Patient has severe and debilitating chronic fatigue. He states that he does try to be compliant with his CPAP but he battles fatigue throughout the day and is quick to fall asleep and take naps and it is very distressing for him. . . PLAN: B12 and TSH Encourage compliance for now with current CPAP settings I believe the patient would be best served with transition of care to my partner, Dr. Chung who is sleep medicine specialist and could further evaluate for updating his CPAP and also consideration of MSLT for narcolepsy. we will look to transfer his care to her. Thank you for consult on this nice patient. We will send a note back to the referring provider today. Right hand pain 10/04/2023 Overview (10/04/2023): Patient had right hand pain after a crush injury and EMG revealed minimal carpal tunnel syndrome on the right. This is largely resolved and stable today. . Plan: Monitor clinically Hypersomnia 10/04/2023 Fasciculations 10/04/2023 Memory impairment 10/04/2023 Overview (10/04/2023): The patient reports subjective memory impairment with onset years ago. This primarily affects his short-term memory. watermaster memory is intact, and the patient denies any significant functionality issues. TSH on 07/10/23 was within normal limits. MMSE on 05/03/21 was 30/30. However, the patient's father did have dementia, and we will have to monitor closely for possible development of neurodegenerative condition in the patient. We will plan to address this in further detail at follow up. PLAN: - Consider MOCA, neuropsych evaluation, and/or MRI of the brain at follow up Bilateral carpal tunnel syndrome 10/04/2023 Overview (10/04/2023): Identified on BUE EMG from 07/10/23 (moderate on the left and minimal on the right). The patient reports intermittent paresthesias in the left hand upon waking, consistent with this diagnosis. No focal weakness noted. PLAN: - I recommended use of left cock-up wrist splint at bedtime - Consider referral to orthopedic surgery in the future if symptoms persist or worsen with conservative measures Encounter for long-term (current) use of medicat ions 08/29/2023 Class 2 severe obesity due t o excess calories with serious comorbidity and body mass index (BMI) of 37.0 to 37.9 in adult 08/29/2023 Lumbar spondylosis 06/07/2023 Assessment & Plan (05/28/2024 8:19 AM EST): Pain starting to worsen and follow with pain management. Continue celebrex. Assessment & Plan (12/05/2023 9:08 AM EDT): Pain improved after injection and monitor. Continue celebrex. Assessment & Plan (11/14/2023 8:48 AM EDT): Pain improved after injection and monitor. Continue celebrex. Assessment & Plan (08/29/2023 8:27 AM EDT): Continued pain and narrowing on MRI. Refer to pain management for possible injections. Assessment & Plan (06/07/2023 10:42 AM EST): Continued pain and worsening radicular symptoms. No improvement with PT. Symptoms suggestive of pinched nerve and check MRI. Will need referral to either pain management or neurosurgery after imaging. Bilateral leg edema 06/07/2023 Assessment & Plan (12/05/2023 9:08 AM EDT): Edema stable with medication and use PRN. Elevate legs PRN. Stick to low sodium diet. Assessment & Plan (11/14/2023 8:47 AM EDT): Edema stable without lasix and monitor. Elevate legs PRN. Stick to low sodium diet. Assessment & Plan (08/29/2023 8:26 AM EDT): Edema stable and continue lasix. Elevate legs PRN. Assessment & Plan (06/07/2023 10:43 AM EST): Edema stable and continue lasix. Elevate legs PRN. Enlarged prostate with urinary obstruction 12/04 Acquired Mone's deformity of right heel 12/04 Allergic rhinitis 12/04/2022 Anemia 12/04/2022 Arthritis of left knee 12/04/2022 Chronic myringitis of right ear 12/04/2022 Complete rotator cuff tear o r rupture of right shoulder, not specified as traumatic 12/04/2022 Difficulty walking 12/04/2022 Dysfunction of right eustachian tube 12/04/2022 Localized, primary osteoarthritis of hand 2022 Nocturia 12/04/2022 Osteoarthritis of knee 12/04/2022 Primary osteoarthritis, right shoulder Prostate cancer 12/04/2022 Assessment & Plan (12/05/2023 9:08 AM EDT): Prior treatment and follow with urology. Proteinuria 12/04/2022 Hypercholesteremia 12/04/2022 Rhinitis medicamentosa 12/04/2022 Type 2 diabetes mellitus wit h diabetic polyneuropathy, with long-term current use of insulin 12/04/2022 Assessment & Plan (07/31/2024 1:15 PM EST): During the appointment today all pertinent labs, [...] if they have any problems or questions. iMlad Sneed is struggling to gain control of their [...] Will increase insulin to help as well. Assessment & Plan (05/28/2024 8:19 AM EST): BS improving and follow up with endo. Assessment & Plan (04/29/2024 11:31 AM EST): During the appointment today all pertinent labs, [...] they have any problems or questions. Milad Sneed blood sugars are worsening. , The patient [...] protein if he is going to snack. Assessment & Plan (01/31/2024 12:15 PM EDT): During the appointment today all pertinent labs, [...] they have any problems or questions. Milad Sneed is doing very well and encouraged on this. , Will stay on current medications. , The patient is wearing their cgm on a daily basis and making decisions in regards to adjusting insulin daily as well for at least the last 60 days. Gave another sample of ozempic as we wait on patient assistance. I believe his bg will come down more once he is able to be consistent with this. May need to decrease insulin more at that time. Assessment & Plan (10/30/2023 11:37 AM EDT): During the appointment today all pertinent labs, [...] they have any problems or questions. Milad Sneed is making improvements and encouraged on this. Will increase ozempic. Decrease insulin at breakfast and dinner and increase at lunch. Assessment & Plan (08/29/2023 8:27 AM EDT): BS improving and follow up with endo. Assessment & Plan (07/30/2023 12:53 PM EST): During the appointment today all pertinent labs, [...] they have any problems or questions. Milad Sneed is struggling to gain control of their [...] needs to decrease portion sizes with food. Assessment & Plan (05/06/2023 9:54 AM EST): During the appointment today all pertinent labs, [...] they have any problems or questions. Milad Sneed is doing very well and encouraged on this. , The patient is wearing their cgm on a daily basis and making decisions in regards to adjusting insulin daily as well for at least the last 60 days , Instructed on the importance of taking insulin before eating. If it has been more than 30-45 min since eating they should not give the meal dose but should just give a correction insulin dose. , Instructions given today include: Insulin instructions and Dietary education. He is to work on more protein at breakfast. Will decrease insulin at breakfast and increase at lunch and dinner. Assessment & Plan (01/16/2023 10:29 AM EDT): During the appointment today all pertinent labs, [...] they have any problems or questions. Milad Sneed continues to struggle to gain control of their diabetes. I am very concerned for diabetes related complications. , Discussed dietary changes at length. Encouraged to limit simple carbs and focus more on healthy protein/fat with all meals and snacks. They should also avoid any sugary drinks. , Instructions given today include: Insulin instructions and Dietary education. Will restart jardiance and give samples of them to help with cost 1/2 pill daily. Increase insulin for meals and reinstructed on how to use the correction. Long-term insulin use 12/04/2022 Iron deficiency anemia due to chronic blood loss 01/16/2020 Renal failure 12/20/2018 Orthostatic hypotension 11/21/2018 Fatigue 11/19/2018 Lightheadedness 11/19/2018 Benign non-nodular prostatic hyperplasia with lower urinary tract symptoms 02/09/2017 Overview (12/04/2022): luts - using finasteride and oxybutynin when last seen by Zach 2009 GERD (gastroesophageal reflux disease) 3 Benign essential hypertension 01/13/2013 Assessment & Plan (05/28/2024 8:18 AM EST): BP controlled and monitor PRN. Discussed DASH diet. Assessment & Plan (12/05/2023 9:07 AM EDT): BP controlled and monitor PRN. Discussed DASH diet. Assessment & Plan (11/14/2023 8:47 AM EDT): BP controlled and monitor PRN. Discussed DASH diet. Assessment & Plan (10/11/2023 10:51 AM EDT): BP controlled and monitor PRN. Assessment & Plan (08/29/2023 8:26 AM EDT): BP controlled and monitor PRN. Assessment & Plan (06/07/2023 10:42 AM EST): BP controlled and monitor PRN. Resolved Problems Problem Noted Date Diagnosed Date Resolved Date Type 2 diabetes mellitus wit h hyperglycemia, with long-term current use of insulin 12/05/2023 Assessment & Plan (12/05/2023 9:09 AM EDT): A1C improved and follow with endo. Carpal tunnel syndrome 12/04/202206/07 Cigarette smoker 12/04/2022 06/07/2023 Bilateral hearing loss 12/04/202206/07 Migraine headache 12/04/2022 06/07/2023 Class 2 severe obesity due t o excess calories with serious comorbidity and body mass index (BMI) of 35.0 to 35.9 in adult 12/04/2022 5 Encounters Date Type Department Care Team Description 01/15/2025 Refill [facility] [address] [place] [id number] Dank Bella MD Hypomagnesemia 01/05/2025 Refill [facility] [address] [place] [address] Dank Bella MD Type 2 diabetes mellitus with hyperglycemia, without long-term current use of insulin ([facility]) 12/24/2024 Refill [facility] [address] [place] [address] Dank Bella MD Type 2 diabetes mellitus with diabetic polyneuropathy, with long-term current use of insulin ([facility]) 12/18/2024 Refill [facility] [address] [place] [address] Dank Bella MD Essential (primary) hypertension ; Hyperlipidemia, unspecified 12/02/2024 Telephone [facility] [address] [place] [phone] Dank Bella MD 11/27/2024 Telephone [facility] [address] [place] [address] Alice Coreas LPN discharge from Last 3 Months Immunizations Immunization Administration Dates Next Due ABRYSVO - Respiratory syncyt ial virus (RSV), vaccine, bivalent, protein subunit RSV prefusion F, diluent reconstituted, 0.5 mL, PF 02/28/2024 Influenza Nasal, Unspecified 03/02/2017 Influenza, High Dose Seasona l, Preservative Free 02/28/2024,02/09/2020 Influenza, Seasonal, Quadriv alent, Adjuvanted 02/14/2023,04/09/2022,02/22/2021 Influenza, Unspecified 02/14/2023,2021,02/22/2021,01/17,02/17/2020,03/15/2019,02/25/2018 ,03/02/2017,03/05/2016,02/01/2015 Influenza, injectable, quadr ivalent, preservative free 02/17/2020,03/15/2019,02/25/2018,03/02,03/05/2016 Influenza, seasonal, injectable 01/17/2021,03/05,02/01/2015 Moderna SARS-CoV-2 Vaccination 01/17/2021 Pfizer Purple Cap SARS-CoV-2 Vaccination 10/16/2020,10/01/2020 Pneumococcal Conjugate PCV 13 02/16/2021, 017,08/04/2013 Pneumococcal Polysaccharide PPSV23 02/22/2021, RSV, recombinant, protein zapata bunit RSVpreF, adjuvant reconstitu, 120mcg/0.5mL, PF (Arexvy) 03/23/2023 TD (adult), 2 Lf tetanus tox oid, preservative free, adsorbed 01/20/2021 Td (adult), 5 Lf tetanus tox oid, preservative free, adsorbed 01/20/2021 Tdap 08/18/2014 Zoster, Recombinant 04/22/2023,02/14/2023 Zoster, live 02/18/2015 Family History Medical History Relation Name Comments Alzheimer's disease Father Diabetes Father Heart disease Father Hypertension Father Mental illness Father Stroke Father Pancreatic cancer Maternal Grandfather Breast cancer Mother Diabetes Mother HAKEEM disease Mother Hypertension Mother Heart disease Paternal Grandfather Stroke Paternal Grandfather GI problems Paternal Grandmother peritonitis Paternal Grandmother Relation Name Status Comments Brother 3 Father Maternal Grandfather Maternal Grandmother Mother Alive Paternal Grandfather Paternal Grandmother Sister 1 sister Social History Tobacco Use Types Packs/Day Years Used Date Smoking Tobacco: Former Cigarettes Smokeless Tobacco: Never Tobacco Cessation:Counseling Given: Not Answered Comments:Last smoked: 3-6 months ago Heavy cigarette smoker (20-39 cigs/day) Alcohol [...] often do you attend chur ch or hoahaoism services? Never 01/09/2023 Do you belong to any clubs o r organizations such as druze groups, unions, fraternal or athletic groups, or [...] Recorded Patient Health Questionnaire-2 Score 0 07/31/2024 [facility] [place] of Occupat ional Health - Occupational Stress [...] place to sleep or slept in a jail (including now)? No 01/09/2023 Sex and Gender Information Value Date Recorded Sex Assigned at Not on file Legal Sex Male 6:42 PM EDT Gender Identity Not on file Sexual Orientation Not on file Last Filed Vital Signs Vital Sign Reading Time Taken Comments Blood Pressure 108/70 07/31/2024 10:32 AM EST Pulse 78 07/31/2024 10:32 AM EST Temperature 36.6 C (97.9 F) 07/31/2024 10:32 AM EST Respiratory Rate 18 05/28/2024 7:38 AM EST Oxygen Saturation 97% 07/31/2024 10:32 AM EST Inhaled Oxygen Concentration - - Weight 117 kg (258 lb) 07/31/2024 10:32 AM EST Height 177.8 cm (5' 10 ) 07/31/2024 10:32 AM EST Body Mass Index 37.02 07/31/2024 10:32 AM EST Plan of Treatment Upcoming Encounters Date Type Department Care Team (Late st Contact Info) Description 01/28/2025 11:10 AM EDT [facility] [address] [place] [address] Deb Matthew MD [address] [place] [address] Health Maintenance Due Date Last Done Comments CT Colonography 1955 FIT-DNA 1955 FIT 1955 FOBT 1955 Medicare Annual Wellness (AWV) 1955 Sigmoidoscopy 1955 Diabetes: Urine Protein Screening 09/03/2024 024 Diabetes: Hemoglobin A1C 10/28/2024 025, 04/29/2024, 01/31/2024, Additional history exists Influenza Vaccine (#1) 2025 4, 02/14/2023, 02/14/2023, Additional history exists Diabetes: Retinopathy Screening 10/21/2026 5, 08/28/2023 Colonoscopy 04/27/2033 04/27/2023, 02/11/2020 Colorectal Cancer Screening 04/27/2033 Pneumococcal Vaccine: 65+ Years Completed 02/22/2021, 02/16/2021, 05/30/2017, Additional history exists Procedures Procedure Name Priority Date/Time Associated Diagnosis Comments DIABETIC RETINOPATHY SCREENING - OU - BOTH EYES Routine 10/21/2024 12:38 PM EDT POCT GLYCOSYLATED HEMOGLOBIN (HGB A1C) Routine 07/31/2024 10:44 AM EST Type 2 diabetes mellitus with diabetic polyneuropathy, with long-term current use of insulin (HCC) from Last 3 Months or Most Recently Relevant to Health Maintenance Results * Diabetic Retinopathy Screening - OU - Both Eyes (10/21/2024 12:38 PM EDT) Anatomical Region Laterality Modality Head Other us [facility] Provider Unallocated OPHTH PHOTOGRAPHY F inal Result * (ABNORMAL) POCT glycosylated hemoglobin (Hb A1C) docked device (07/31/2024 10:44 AM EST) Hemoglobin A1C 9.4 Blood Venous blood specimen / Unknown 07/31/2024 10:44 AM EST Ashli Joseph DO POINT OF CARE TEST ENTER/E DIT ORDERABLES Final Result from Last 3 Months or Most Recently Relevant to Health Maintenance Insurance [employer] Care Teams Early Childhood Teacher Assistant Relationship Specialty Start Date End Date Dank Bella MD [address] [place] [id number] PCP - General Family Medicine 08/17/23
--- OUTSIDE RECORDS SUMMARY | 2025-01-28 09:29 | XMS_ITS | Clinical Summary ---
Author Organization [facility] Address [address] [place] [address] Care Team Providers Care Certified Hearing Instrument Dispenser Name Role Phone Dank Bella MD Primary Care Provider Allergies No known active allergies Medications aspirin, enteric coated (ASPIRIN, ENTERIC COATED) 81 mg EC tablet q 24 HR. 9 Active baclofen (LIORESAL) 20 mg tablet baclofen 20 mg tablet take 1 tablet by mouth three times a day if needed 9 Active celecoxib (CELEBREX) 200 mg capsule Take 200 mg by mouth twice daily. 0 Active lisinopril (ZESTRIL, PRINIVIL) 5 mg tablet lisinopril 5 mg tablet Active metFORMIN (GLUCOPHAGE) 850 mg tablet Take 850 mg by mouth three times daily. 0 Active magnesium oxide (MAG-OX) 400 mg (241.3 mg magnesium) tablet Take 1 tablet by mouth once daily. 0 Active metoprolol succinate ER (TOPROL XL) 50 mg 24 hr tablet Take 50 mg by mouth once daily. 0 Active simvastatin (ZOCOR) 40 mg tablet simvastatin 40 mg tablet 9 Active Active Problems Problem Noted Date Diagnosed Date Iron deficiency anemia due to chronic blood loss 01/16/2020 Immunizations Immunization Administration Dates Next Due influenza (IIV3) vaccine, tr ivalent (AFLURIA, FLULAVAL, FLUVIRIN, FLUZONE) 03/05/2016,02/01/2015 influenza (IIV4) vaccine, ag e 6 mo - 64 yr, quadrivalent, PF (AFLURIA, FLUARIX, FLULAVAL, FLUZONE) 02/17/2020,03/15/2019,02/25/2018,2016,03/05/2016 influenza (LAIV) vaccine, na rakesh, unspecified formulation 03/02/2017 pneumococcal conjugate (PCV1 3) vaccine, 13 valent (PREVNAR 13) 05/30/2017,08/04/2013 tetanus diphtheria pertussis (Tdap) vaccine, age 7+ yr (ADACEL, BOOSTRIX) 08/18/2014 zoster (ZVL) vaccine, live (ZOSTAVAX) 02/18/2015 Family History Medical History Relation Comments Cancer Maternal Grandfather Relation Status Comments Maternal Grandfather Social History Tobacco Use Types Packs/Day Years Used Date Smoking Tobacco: Every Day Cigarettes 3 30 Smokeless Tobacco: Never Tobacco Cessation:Ready to Q uit: No; Counseling Given: Yes Alcohol Use Standard Drinks/Week Comments Not Currently 0 (1 standard drink = 0.6 oz pur e alcohol) PHQ-2 Answer Date Recorded PHQ-2 score 0 01/29/2021 Area Deprivation Index Answer Date Casimiro rded National Score (1-100), lower number is lower ri sk Not on file 05/22/2020 State Score (1-10), lower number is lower risk N ot on file 05/22/2020 Data from: https://www.neighborhoodatlas.medicine.[facility].edu/. Last address used for calculation Not on file 05/22/2020 Sex and Gender Information Value Date Recorded Sex Assigned at Male 10/31/2020 9:57 PM EDT Legal Sex Male 1:15 PM EDT Gender Identity Male 10/31/2020 9:57 PM EDT Sexual Orientation Straight 10/31/2020 9: 57 PM EDT Last Filed Vital Signs Vital Sign Reading Time Taken Comments Blood Pressure 125/64 02/01/2021 3:02 PM EDT Pulse 75 02/01/2021 3:02 PM EDT Temperature 36.1 C (97 F) 02/01/2021 3:02 PM EDT Respiratory Rate 16 02/01/2021 3:02 PM EDT Oxygen Saturation 97% 02/01/2021 3:02 PM EDT Inhaled Oxygen Concentration - - Weight 102.5 kg (226 lb) 02/01/2021 3:02 PM EDT Height 179.1 cm (5' 10.51 ) 07/12/2020 2:[address] Body Mass Index 31.96 07/12/2020 2:59 PM EST Plan of Treatment Health Maintenance Due Date Last Done Comments Abdominal Aortic Aneurysm Screening 1955 Anxiety Screening 09/15/1973 Depression Screening 09/15/1973 Hepatitis C Screening 09/15/1973 Lipid Screening 09/15/1990 CT Colonography 09/15/2000 Cologuard (FIT-DNA) 09/15/2000 Colonoscopy 09/15/2000 Colorectal Cancer Screening 09/15/2000 Fecal Occult Blood 09/15/2000 Sigmoidoscopy 09/15/2000 Shingrix Vaccine (2 of 3) 04/15/2015 02/18/2015 Pneumococcal Vaccine: 50+ (2 of 2 - PPSV23) 05/30/2018 05/30/2017, 08/04/2013 Diabetes Screening 06/29/2023 06/29/2020, 1 07/22/2019, 05/07/2020, Additional history exists Advance Directive Discussion 06/18/2024 Influenza Vaccine (#1) 2025 0, 03/15/2019, 02/25/2018, Additional history exists RSV Vaccine (1 - 1-dose 75+ series) 09/15/2030 DTaP,Tdap,Td Vaccine (3 - Td or Tdap) 01/20/2031 01/20/2021, 08/18/2014 Procedures Procedure Name Priority Date/Time Associated Diagnosis Comments COMPREHENSIVE METABOLIC PANEL Routine 05/21/2020 12:25 PM EST Iron deficiency anemia, unspecified iron deficiency anemia type from Last 3 Months or Most Recently Relevant to Health Maintenance Results * (ABNORMAL) COMP METABOLIC PANEL (05/21/2020 12:25 PM EST) Protein, Total 6.4 6.3 - 8.0 g/dL 05/21/2020 2:00 PM EST [facility] Albumin 4.2 3.9 - 4.9 g/dL 05/21/2020 2:00 PM EST [facility] Calcium 9.4 8.5 - 10.2 mg/dL 05/21/2020 2:00 PM [facility] Bilirubin, Total 0.2 0.2 - 1.3 mg/dL 05/21/2020 2:00 PM [facility] Alkaline Phosphatase 97 38 - 113 U/L 05/21/2020 2:00 PM [facility] AST 12(L) 14 - 40 U/L 05/21/2020 2:00 PM [facility] Glucose 118(H) 74 - 99 mg/dL 05/21/2020 2:00 PM [facility] Comment: The [place] Diabetes Association (ADA) provides guidance for cutoff values for fasting glucose and random glucose. The ADA defines fasting as no caloric intake for at least 8 hours. Fasting plasma glucose results between 100 to 125 mg/dL indicate increased risk for diabetes (prediabetes). Fasting plasma glucose results greater than or equal to 126 mg/dL meet the criteria for diagnosis of diabetes. In the absence of unequivocal hyperglycemia, results should be confirmed by repeat testing. In a patient with classic symptoms of hyperglycemia or hyperglycemic crisis, random plasma glucose results greater than or equal to 200 mg/dL meet the criteria for diagnosis of diabetes. Reference: Standards of Medical Care in Diabetes 2016, [place] Diabetes Association. Diabetes Care. 2016.39(Suppl 1). BUN 19 9 - 24 mg/dL 05/21/2020 2:00 PM [facility] Creatinine 0.76 0.73 - 1.22 mg/dL 05/21/2020 2:00 PM [facility] Sodium 142 136 - 144 mmol/L 05/21/2020 2:00 PM [facility] Potassium 4.1 3.7 - 5.1 mmol/L 05/21/2020 2:00 PM [facility] Chloride 108(H) 97 - 105 mmol/L 05/21/2020 2:00 PM [facility] CO2 26 22 - 30 mmol/L 05/21/2020 2:00 PM [facility] Anion Gap 8(L) 9 - 18 mmol/L 05/21/2020 2:00 PM [facility] ALT 13 10 - 54 U/L 05/21/2020 2:00 PM [facility] eGFR- >60 05/21/2020 2:00 PM EST [facility] eGFR-All Other Races >60 . 05/21/2020 2:00 PM EST [facility] Comment: eGFR (Estimated GFR) Units of measure: mL/min/1.73 meters squared eGFR is derived from the reexpressed MDRD Study equation using the following parameters: serum creatinine, age, gender and race. The creatinine assay has been calibrated to be traceable to IDMS. An eGFR <60 mL/min/1.73m2 for >3 months is consistent with chronic kidney disease. Refer to KDOQI guidelines for clinical interpretation. In patients with unstable renal function, e.g. those with acute kidney injury, the eGFR may not accurately reflect actual GFR. Blood 05/21/2020 12:2 5 PM EST 05/21/2020 12:28 PM EST Diane Flowers PA-C LABORATORY Final Result [facility] [address] [place] [address] [facility] [address] from Last 3 Months or Most Recently Relevant to Health Maintenance Insurance [facility] PPO Member Subscriber Plan / Payer (Ef fective 2013-Present) Name:Milad Sneed Relation to Subscriber:Self Name:Milad Sneed Payer ID:[id number] (NAIC) Group ID:Not on file Type:PPO Address: [facility] [id number] [place] [id number] [employer] MED[employer]ARE ADVANTAGE HMO Care Teams Certified Hearing Instrument Dispenser Relationship Specialty Start Date End Date Dank Bella MD [address] [place] [address] PCP - General Family Medicine 10/06/19
--- OUTSIDE RECORDS SUMMARY | 2025-01-28 09:29 | XMS_ITS | Encounter Summary ---
Author Organization [facility] Address [address] [place] [address] Care Team Providers Care Medical Services Manager Name Role Phone Dank Bella MD Primary Care Provider [phone] Dank Bella MD Unavailable Encounter Details Date Type Department Care Team (Late st Contact Info) Description 07/03/2024 Clinisync Result Encounter [facility] External Department Unsolicited Provider, Generic External Data Social History Tobacco Use Types Packs/Day Years [...] often do you attend chur ch or taoist services? Never 01/09/2023 Do you belong to any clubs o r organizations such as mandaen groups, unions, fraternal or athletic groups, or [...] Date Recorded Patient Health Questionnaire-2 Score 0 04/29/2024 [facility] - Occupational Stress Questionnaire Answer Date Recorded [...] place to sleep or slept in a half-way (including now)? No 01/09/2023 Sex and Gender Information Value Date Recorded Sex Assigned at Not on file Legal Sex Male 6:42 PM EDT Gender Identity Not on file Sexual Orientation Not on file documented as of this encounter Plan of Treatment Upcoming Encounters Date Type Department Care Team (Late st Contact Info) Description 01/28/2025 11:10 AM EDT Office Visit [facility] [address] [place] [address] Deb Matthew MD [address] [place] [address] documented as of this encounter Procedures Procedure Name Priority Date/Time Associated Diagnosis Comments XR KNEE 4+ VIEWS BILATERAL 07/03/2024 10:40 AM EST documented in this encounter Results * XR knee 4+ views bilateral (07/03/2024 10:40 AM EST) Anatomical Region Laterality Modality Lower Extremities, Knee Bilateral [facility] 07/03/2024 10:4 0 AM EST Narrative 07/03/2024 10:42 AM EST The [address] [address] XRay Report Signed Patient: GEGE SNEED MR#: [id number] : 1955 Acct:[id number] Age/Sex: 68 / M ADM Date: 07/03/24 Loc: RAD Attending Dr: Gladis Garcia NP Ordering Physician: Gladis Garcia NP Date of Service: 07/03/24 Procedure(s): XR knee KUSUM 4V Accession Number(s): [id number] cc: Gladis Garcia NP; Dank Bella M.D. The [place] [id number] Patient Name: GEGE SNEED MRN: [id number] date: 1955 Sex: M Assigned Patient Location: [facility] Current Patient Location: RAD Accession/Order Number: [id number] Exam Date: 07/03/2024 09:39 Report Date: 07/03/2024 10:40 At the request of: GLADIS GARCIA Procedure: XR knee KUSUM 4V EXAMINATION: XR knee KUSUM 4V HISTORY: Bilateral Knee Pain, Osteoarthritis COMPARISON: No relevant comparison available. FINDINGS: RIGHT FINDINGS: BONES: No acute fracture or dislocation. Moderate to severe tricompartmental osteoarthritis with marginal osteophyte formation. Extensive enthesopathic spurring proximal patella at the quadriceps insertion. Moderate narrowing medial joint space SOFT TISSUES: Negative. No visible soft tissue swelling. OTHER: Mild suprapatellar joint effusion LEFT FINDINGS: BONES: No acute fracture or dislocation. Moderate to severe tricompartmental osteoarthritis with marginal osteophyte formation. Extensive enthesopathic spurring proximal patella at the quadriceps insertion. Moderate narrowing medial joint space SOFT TISSUES: Negative. No visible soft tissue swelling. OTHER: Negative. 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 Signed By: 07/03/24 1042 DD/ 1040 TD/TT: Textile Coating Machine Operator: Procedure Note Radiology, Radiologist, - 07/03/2024 [place] [address] XRay Report Signed Patient: GEGE SNEED DMR#: [id number] : 1955cct:[id number] Age/Sex: 68 / MADM Date: 07/03/24 Loc: RAD Attending Dr: Gladis Garcia NP Ordering Physician: Gladis Garcia NP Date of Service: 07/03/24 Procedure(s): XR knee KUSUM 4V Accession Number(s): [id number] cc: Gladis Garcia NP; Dank Bella M.D. [place] [id number] Patient Name: GEGE SNEED MRN: [id number] date: 1955 Sex: M Assigned Patient Location: [facility] Current Patient Location: RAD Accession/Order Number: [id number] Exam Date: 07/03/2024 09:39 Report Date: 07/03/2024 10:40 At the request of: GLADIS GARCIA Procedure: XR knee KUSUM 4V EXAMINATION: XR knee KUSUM 4V HISTORY: Bilateral Knee Pain, Osteoarthritis COMPARISON: No relevant comparison available. FINDINGS: RIGHT FINDINGS: BONES: No acute fracture or dislocation. Moderate to severetricompartmental osteoarthritis with marginal osteophyte formation. Extensive enthesopathic spurring proximal patella at the quadriceps insertion. Moderate narrowing medial joint space SOFT TISSUES: Negative. No visible soft tissue swelling. OTHER: Mild suprapatellar joint effusion LEFT FINDINGS: BONES: No acute fracture or dislocation. Moderate to severetricompartmental osteoarthritis with marginal osteophyte formation. Extensive enthesopathic spurring proximal patella at the quadriceps insertion. Moderate narrowing medial joint space SOFT TISSUES: Negative. No visible soft tissue swelling. OTHER: Negative. 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 Signed By:07/03/24 1042 DD/ 1040 TD/TT: Textile Coating Machine Operator: Generic External Data Provider IMG XR PROCEDURES Final Result documented in this encounter Visit Diagnoses Not on filedocumented in this encounter Care Teams Medical Services Manager Relationship Specialty Start Date End Date Dank Bella MD [address] [place] [address] PCP - General Family Medicine 08/17/23 Dank Bella MD [address] [place] [address] PCP - Sadia ARMSTRONG 06/18/24 12/15/24 documented as of this encounter
--- OUTSIDE RECORDS SUMMARY | 2025-01-28 09:29 | XMS_ITS | Encounter Summary ---
Author Organization [facility] Address [address] [place] [address] Care Team Providers Care Engineer Exhauster Name Role Phone Dank Bella MD Primary Care Provider [phone] Dank Bella MD Unavailable Encounter Details Date Type Department Care Team (Late st Contact Info) Description 10/09/2023 Orders Only [facility] [address] [place] [address] Dank Bella MD [address] [place] [address] Social History Tobacco Use Types Packs/Day Years [...] How often do you attend chur or buddhist services? Never 01/09/2023 Do you belong to any clubs o r organizations such as voodoo groups, unions, fraternal or athletic groups, or [...] Recorded Patient Health Questionnaire-2 Score 0 01/16/2023 [facility] - Occupational Stress [...] place to sleep or slept in a assisted (including now)? No 01/09/2023 Sex and Gender Information Value Date Recorded Sex Assigned at Not on file Legal Sex Male 6:42 PM EDT Gender Identity Not on file Sexual Orientation Not on file documented as of this encounter Plan of Treatment Upcoming Encounters Date Type Department Care Team (Late st Contact Info) Description 01/28/2025 11:10 AM EDT [facility] [address] [place] [address] Deb Matthew MD [address] [place] [address] documented as of this encounter Visit Diagnoses Not on filedocumented in this encounter Care Teams Engineer Exhauster Relationship Specialty Start Date End Date Dank Bella MD [address] [place] [address] PCP - General Family Medicine 08/17/23 Dank Bella MD [address] [place] [address] OMER Mccullough MA 06/18/24 12/15/24 documented as of this encounter
--- OUTSIDE RECORDS SUMMARY | 2025-01-28 09:29 | XMS_ITS | Encounter Summary ---
Author Organization [facility] Address [address] [place] [address] Care Team Providers Care Surveillance Supervisor Name Role Phone Dank Bella MD Primary Care Provider [phone] Dank Bella MD Unavailable Encounter Details Date Type Department Care Team (Late st Contact Info) Description 10/21/2024 Orders Only [facility] [address] [address] [place] [address] Unallocated, [facility] Provider, [address] [place] [place], [place] [address] Social History Tobacco Use Types Packs/Day Years [...] How often do you attend chur or restoration services? Never 01/09/2023 Do you belong to any clubs o r organizations such as alevism groups, unions, fraternal or athletic groups, or [...] Recorded Patient Health Questionnaire-2 Score 0 07/31/2024 [facility] - Occupational Stress [...] place to sleep or slept in a residential (including now)? No 01/09/2023 Sex and Gender Information Value Date Recorded Sex Assigned at Not on file Legal Sex Male 6:42 PM EDT Gender Identity Not on file Sexual Orientation Not on file documented as of this encounter Plan of Treatment Upcoming Encounters Date Type Department Care Team (Late st Contact Info) Description 01/28/2025 11:10 AM EDT Office Visit [facility] [address] [place] [address] Deb Matthew MD [address] [place] [address] documented as of this encounter Procedures Procedure Name Priority Date/Time Associated Diagnosis Comments DIABETIC RETINOPATHY SCREENING - OU - BOTH EYES Routine 10/21/2024 12:38 PM EDT documented in this encounter Results * Diabetic Retinopathy Screening - OU - Both Eyes (10/21/2024 12:38 PM EDT) Anatomical Region Laterality Modality Head Other us [facility] Provider Unallocated OPHTH PHOTOGRAPHY F inal Result documented in this encounter Visit Diagnoses Not on filedocumented in this encounter Care Teams Surveillance Supervisor Relationship Specialty Start Date End Date Dank Bella MD [address] [place] [address] PCP - General Family Medicine 08/17/23 Dank Bella MD [address] [place] [address] PCP - Sadia ARMSTRONG 06/18/24 12/15/24 documented as of this encounter
--- OUTSIDE RECORDS SUMMARY | 2025-01-28 09:29 | XMS_ITS | Encounter Summary ---
Author Organization [facility] Address [address] [place] [address] Care Team Providers Care Gem Expert Name Role Phone Dank Bella MD Primary Care Provider [phone] Ashli Joseph DO Primary Care Provider [phone] Dank Bella MD Primary Care Provider [phone] Dank Bella MD Unavailable Encounter Details Date Type Department Care Team (Late st Contact Info) Description 12/11/2022 [facility] [address] [facility] [address] [place] [address] Ashli Joseph, [address] [facility] [address] [place] [address] Social History Tobacco Use Types Packs/Day Years Used Date Smoking Tobacco: Former Cigarettes Smokeless Tobacco: Never Tobacco Cessation:Counseling Given: Not Answered Comments:Last smoked: 3-6 months ago Heavy cigarette smoker (20-39 cigs/day) Alcohol Use Standard Drinks/Week Comments Not Currently 0 (1 standard drink = 0.6 oz pur e alcohol) AUDIT-C Answer Date Recorded Q1: How often do you have a drink containing alcohol? Never 12/04/2022 Q2: How many drinks containi ng alcohol do you have on a typical day when you are drinking? Patient does not drink Q3: How often do you have si x or more drinks on one occasion? Never 12/04/2022 PHQ-2 Answer Date Recorded Patient Health Questionnaire-2 Score 0 12/04/2022 Sex and Gender Information Value Date Recorded Sex Assigned at Not on file Legal Sex Male 6:42 PM EDT Gender Identity Not on file Sexual Orientation Not on file documented as of this encounter Plan of Treatment Upcoming Encounters Date Type Department Care Team (Late st Contact Info) Description 01/28/2025 11:10 AM EDT Office Visit [facility] [address] [place] [address] Deb Matthew MD [address] [place] [address] documented as of this encounter Visit Diagnoses Not on filedocumented in this encounter Care Teams Gem Expert Relationship Specialty Start Date End Date Dank Bella MD [address] [place] [address] PCP - General Family Medicine 07/25/23 08/12/23 Ashli Joseph DO [address] [place] [address] PCP - General Family Medicine 08/13/23 08/16/23 Dank Bella MD [address] [place] [address] PCP - General Family Medicine 08/17/23 Dank Bella MD [address] [place] [address] PCP - Sadia ARMSTRONG 06/18/24 12/15/24 documented as of this encounter
--- OUTSIDE RECORDS SUMMARY | 2025-01-28 09:29 | XMS_ITS | Encounter Summary ---
Author Organization [facility] Address [address] [place] [address] Care Team Providers Care Sales Teacher Name Role Phone Dank Bella MD Primary Care Provider [phone] Dank Bella MD Unavailable Encounter Details Date Type Department Care Team (Late st Contact Info) Description 01/29/2024 Abstract [facility] [address] [place] [phone] Matthew Krishnamurthy DPM [address] [place], [place] [phone] Social History Tobacco Use Types Packs/Day Years [...] How often do you attend chur or judaism services? Never 01/09/2023 Do you belong to any clubs o r organizations such as episcopalian groups, unions, fraternal or athletic groups, or [...] Recorded Patient Health Questionnaire-2 Score 0 01/16/2023 [facility] - Occupational [...] place to sleep or slept in a retirement (including now)? No 01/09/2023 Sex and Gender [...] [facility] [address] [place] [address] Deb Matthew MD [address] [place] [address] documented as of this encounter Visit Diagnoses Not on filedocumented in this encounter Care Teams Sales Teacher Relationship Specialty Start Date End Date Dank Bella MD [address] [place] [address] PCP - General Family Medicine 08/17/23 Dank Bella MD [address] [place] [address] OMER Mccullough MA 06/18/24 12/15/24 documented as of this encounter
--- OUTSIDE RECORDS SUMMARY | 2025-01-28 09:29 | XMS_ITS | Encounter Summary ---
Author Organization [facility] Address [address] [place] [address] Care Team Providers Care Grapple Crew Leader Name Role Phone Dank Bella MD Primary Care Provider [phone] Ashli Joseph DO Primary Care Provider [phone] Dank Bella MD Primary Care Provider [phone] Dank Bella MD Unavailable Encounter Details Date Type Department Care Team (Late st Contact Info) Description 05/07/2023 [facility] [address] [facility] [address] [place] [address] Ashli Joseph DO [address] [facility] [address] [place] [address] Social History Tobacco Use Types [...] often do you attend chur ch or protestant services? Never 01/09/2023 Do you belong to any clubs o r organizations such as yazidi groups, unions, fraternal or athletic groups, or [...] Recorded Patient Health Questionnaire-2 Score 0 01/16/2023 [facility] [place] of Occupat ional Health - Occupational Stress [...] place to sleep or slept in a group home (including now)? No 01/09/2023 Sex and Gender Information Value Date Recorded Sex Assigned at Not on file Legal Sex Male 6:42 PM EDT Gender Identity Not on file Sexual Orientation Not on file COVID-19 Exposure Response Date Recorded In the last 10 days, have yo u been in contact with someone who was confirmed or suspected to have Coronavirus/COVID-19? No / Unsure 04/25/2023 3:39 PM EST documented as of this encounter Plan of Treatment Upcoming Encounters Date Type Department Care Team (Late st Contact Info) Description 01/28/2025 11:10 AM EDT Office Visit [facility] [address] [place] [address] Deb Matthew MD [address] [place] [address] documented as of this encounter Visit Diagnoses Not on filedocumented in this encounter Care Teams Grapple Crew Leader Relationship Specialty Start Date End Date Dank Bella MD [address] [place] [address] PCP - General Family Medicine 07/25/23 08/12/23 Ashli Joseph DO [address] [place] [address] PCP - General Family Medicine 08/13/23 08/16/23 Dank Bella MD [address] [place] [address] PCP - General Family Medicine 08/17/23 Dank Bella MD [address] [place] [address] PCP - Sadia ARMSTRONG 06/18/24 12/15/24 documented as of this encounter
--- OUTSIDE RECORDS SUMMARY | 2025-01-28 09:29 | XMS_ITS | Encounter Summary ---
Author Organization [facility] Address [address] [place] [address] Care Team Providers Care Commercial Green Retrofit Architect Name Role Phone Dank Campo MD Primary Care Provider [phone] Ashli Joseph DO Primary Care Provider [phone]- [phone] Dank Campo MD Primary Care Provider [phone] Dank Campo MD Unavailable Encounter Details Date Type Department Care Team (Late st Contact Info) Description 04/16/2023 Clinisync Result Encounter [facility] External Department Unsolicited Dank Campo MD [address] [place] [phone] Social History Tobacco Use Types Packs/Day Years Used Date Smoking Tobacco: Former Cigarettes Smokeless Tobacco: Never Comments:Last smoked: 3-6 mo nths ago Heavy cigarette smoker (20-39 cigs/day) Alcohol Use Standard Drinks/Week Comments Not Currently 0 (1 standard drink = 0.6 oz pur e alcohol) Humiliation, Afraid, Rape, and Kick questionnair e [...] often do you attend chur ch or moravian services? Never 01/09/2023 Do you belong to any clubs o r organizations such as adventism groups, unions, fraternal or athletic groups, or [...] Recorded Patient Health Questionnaire-2 Score 0 01/16/2023 [facility] [place] of Occupat ional Health - Occupational Stress [...] place to sleep or slept in a custodial (including now)? No 01/09/2023 Sex and Gender [...] [facility] [address] [place] [address] Deb Matthew MD [address] [place] [address] documented as of this encounter Procedures Procedure Name Priority Date/Time Associated Diagnosis Comments XR LUMBAR SPINE 2 OR 3V 04/16/2023 12:51 PM EDT documented in this encounter Results * XR LUMBAR SPINE 2 OR 3V (04/16/2023 12:51 PM EDT) Anatomical Region Laterality Modality Radiographic Martina ging 04/16/2023 12:5 1 PM EDT Narrative 06/06/2024 2:51 [place] [address] XRay Report Signed Patient: GEGE SNEED MR#: [id number] : 1955 Acct:[id number] Age/Sex: 67 / M ADM Date: 04/16/23 Loc: RAD Attending Dr: Dank Campo M.D. Ordering Physician: Dank Campo M.D. Date of Service: 04/16/23 Procedure(s): XR lumbar spine 2-3V Accession Number(s): [id number] cc: Dank Campo M.D. The [place] [address] Patient Name: GEGE SNEED MRN: [id number] date: 1955 Sex: M Assigned Patient Location: [facility] Current Patient Location: PM Accession/Order Number: [id number] Exam Date: 04/16/2023 11:53 Report Date: 04/16/2023 12:51 At the request of: DANK CAMPO Procedure: XR lumbar spine 2-3V EXAM: XR lumbar spine 2-3V HISTORY: Lumbar Spondylosis M47.816 COMPARISON: None. TECHNIQUE: 3 views FINDINGS: Satisfactory alignment. Maintained vertebral body heights and disc spaces. Mild multilevel endplate degenerative changes, disc disease and facet arthropathy of L4-S1. Scattered calcified atherosclerotic disease of aorta. XR/XR lumbar spine 2-3V IMPRESSION: No acute fracture or subluxation. Electronically authenticated by: JAIR SERRATO Date: 04/16/2023 12:51 Dictated By: Jair Serrato M.D. Signed By: 06/06/24 1454 DD/ 1251 TD/TT: Tip Finisher: Procedure Note Radiology, Radiologist, - 06/06/[address] [address] XRay Report Signed Patient: GEGE SNEED DMR#: [id number] : 1955cct:[id number] Age/Sex: 67 / MADM Date: 04/16/23 Loc: RAD Attending Dr: Dank Campo M.D. Ordering Physician: Dank Campo M.D. Date of Service: 04/16/23 Procedure(s): XR lumbar spine 2-3V Accession Number(s): [id number] cc: Dank Campo M.D. [place] [address] Patient Name: GEGE SNEED MRN: [id number] date: 1955 Sex: M Assigned Patient Location: RAD Current Patient Location: PM Accession/Order Number: [id number] Exam Date: 04/16/2023 11:53 Report Date: 04/16/2023 12:51 At the request of: DANK CAMPO Procedure: XR lumbar spine 2-3V EXAM: XR lumbar spine 2-3V HISTORY: Lumbar Spondylosis M47.816 COMPARISON: None. TECHNIQUE: 3 views FINDINGS: Satisfactory alignment. Maintained vertebral body heights anddisc spaces. Mild multilevel endplate degenerative changes, disc disease andfacet arthropathy of L4-S1. Scattered calcified atherosclerotic disease ofaorta. XR/XR lumbar spine 2-3V IMPRESSION: No acute fracture or subluxation. Electronically authenticated by: JAIR SERRATO Date: 04/16/2023 12:51 Dictated By: Jair Serrato M.D. Signed By:06/06/24 1451 DD/ 1251 TD/TT: Tip Finisher: Dank Campo MD IMG XR PROCEDURES Final Result documented in this encounter Visit Diagnoses Not on filedocumented in this encounter Care Teams Commercial Green Retrofit Architect Relationship Specialty Start Date End Date Dank Campo MD [address] [place] [address] PCP - General Family Medicine 07/25/23 08/12/23 Ashli Joseph DO [address] [facility] [address] [place] [address] PCP - General Family Medicine 08/13/23 08/16/23 Dank Campo MD [address] [place] [address] PCP - General Family Medicine 08/17/23 Dank Campo MD [address] [place] [address] PCP - Sadia ARMSTRONG 06/18/24 12/15/24 documented as of this encounter
--- OUTSIDE RECORDS SUMMARY | 2025-01-28 09:29 | XMS_ITS | Encounter Summary ---
Author Organization [facility] Address [address] [place] [address] Care Team Providers Care Auto Parker Name Role Phone Dank Bella MD Primary Care Provider [phone] Dank Bella MD Unavailable Encounter Details Date Type Department Care Team (Late st Contact Info) Description 01/08/2024 Abstract [facility] [address] [place] [phone] Matthew Krishnamurthy DPM [address] [place], [place] [phone] Social History Tobacco Use Types Packs/Day Years [...] How often do you attend chur or mandaeism services? Never 01/09/2023 Do you belong to any clubs o r organizations such as uatsdin groups, unions, fraternal or athletic groups, or [...] Recorded Patient Health Questionnaire-2 Score 0 01/16/2023 [facility] of Occupat ional Health - [...] place to sleep or slept in a usp (including now)? No 01/09/2023 Sex and Gender [...] [facility] [address] [place] [address] Deb Matthew MD [address] [place] [address] documented as of this encounter Visit Diagnoses Not on filedocumented in this encounter Care Teams Auto Parker Relationship Specialty Start Date End Date Dank Bella MD [address] [place] [address] PCP - General Family Medicine 08/17/23 Dank Bella MD [address] [place] [address] OMER Mccullough MA 06/18/24 12/15/24 documented as of this encounter
--- OUTSIDE RECORDS SUMMARY | 2025-01-28 09:30 | XMS_ITS | Encounter Summary ---
Author Organization [facility] Address [address] [place] [address] Care Team Providers Care Motion Study Analyst Name Role Phone Dank Bella MD Primary Care Provider [phone] Ashli Joseph DO Primary Care Provider [phone] Dank Bella MD Primary Care Provider [phone] Dank Bella MD Unavailable Encounter Details Date Type Department Care Team (Late st Contact Info) Description 07/24/2023 External Result Encounter [facility] External Department Unsolicited Fredy Boswell, DRIVER SERVICE TECHNICIAN [address] [place], [place] [address] Social History Tobacco Use Types Packs/Day Years [...] often do you attend chur ch or yazidism services? Never 01/09/2023 Do you belong to [...] Recorded Patient Health Questionnaire-2 Score 0 01/16/2023 [facility] of Occupat ional Health [...] place to sleep or slept in a fci (including now)? No 01/09/2023 Sex and Gender [...] [facility] [address] [place] [address] Deb Matthew MD [address] [place] [address] documented as of this encounter Procedures Procedure Name Priority Date/Time Associated Diagnosis Comments CT SHOULDER LEFT W IV CONTRAST 07/24/2023 1:36 PM EST documented in this encounter Results * CT shoulder left w IV contrast (07/24/2023 1:36 PM EST) Anatomical Region Laterality Modality Upper Extremities, Shoulder Left Comp uted Tomography 07/24/2023 1:36 PM EST Impressions 07/24/2023 1:51 PM EST 1. There is a full-thickness tear of [...] Kamran Chavira M.D.07/24/2023 1:48 PM Dictation Location: [place] [address] Transcribed By: [facility] 07/24/23 1348 Dictated By: Kamran Chavira II, MD 07/24/23 1336 Signed By: <Electronically signed by Kamran Chavira II, MD in OV> 07/24/23 1348 Narrative 07/24/2023 1:51 PM EST [facility] Main [place] [address] [place] [address] CT Scan Report Signed Patient: Milad Sneed MR#: [id number] : 1955 Acct:[id number] Age/Sex: 67 / M ADM Date: 07/24/23 Loc: X Room: Type: [facility] Attending Dr: Fredy Boswell DRIVER SERVICE TECHNICIAN-C Copies to: Fredy Boswell ENGRAVER JEWELRY Ordering Provider: Fredy Boswell ENGRAVER JEWELRY Date of Service: 07/24/23 CT/CT shoulder LT [...] is seen. CT/CT shoulder LT w con Procedure Note Radiology, Radiologist, - 07/24/2023 [facility] Main [place] [address] [place] [address] CT Scan Report Signed Patient: Milad SneedMR#: [id number] : 6Acct:[id number] Age/Sex: 67 / MADM Date: 07/24/23 Loc: XD Room:Type: [facility] Attending Dr: Fredy Boswell DRIVER SERVICE TECHNICIAN-C Copies to: Fredy Boswell ENGRAVER JEWELRY Ordering Provider: Fredy Boswell ENGRAVER JEWELRY Date of Service: 07/24/23 CT/CT shoulder LT w con: M24.812 CT shoulder LT w con 07/24/2023 8:10 AM SIGNS AND SYMPTOMS: History of rotator cuff repair. Popping sensationduring therapy with loss of strength in left upper extremity. Evaluate for rotator cuff tear. TECHNIQUE: Multidetector CT axial slices of the left shoulder without IVcontrast. Images were obtained after a separate fluoroscopically guided arthrogram of the leftshoulder. Multiplanar and 3-D reformats were performed and viewed on a separate workstation andreviewed to further define anatomy and possible pathology. CT was performed with one or more of thefollowing dose reduction techniques: Automated exposure control, adjustment of the mA and/or kVaccording to patient size, or use of iterative reconstruction technique. COMPARISON: None. FINDINGS: ROTATOR CUFF AND ASSOCIATED STRUCTURES Biceps Tendon: The biceps tendon is normally situated within the bicipitalgroove. No complete or partial biceps tendon tear is present. Rotator cuff: There is a full-thickness tear of the supraspinatus andgreatest in its medially retracted by at least 3.3 cm. The teres minor appears to be grosslyintact. Subscapularis appears to be intact but is thinned suspicion for a partial thickness tear which ismost likely along the bursal surface. There is narrowing of the subacromial space with unroofingof the humeral head in the rotator interval. Soft tissue anchors are noted in the humeral head consistent with previousrotator cuff repair. Musculature: There is no muscular tear, contusion, or atrophy. Bursa: No bursal effusion or thickening is seen. OSSEOUS STRUCTURES Acromioclavicular joint: There are mild degenerative changes of theacromioclavicular joint. A type 3 acromion configuration is noted. There is lateral acromial downsloping. Bones: No Hill-Sachs, reverse Hill-Sachs, or bony Bankart lesions areseen. There are no fractures or regions of abnormal bone marrow signal intensity. GLENOHUMERAL JOINT Joint: There is spurring along the inferior articular surface of thehumeral head with narrowing of the glenohumeral joint space. Labrum: The labrum is not optimally evaluated but appears to be grosslyintact. Other support structures: No capsular or ligamentous abnormality is seen. CT/CT shoulder LT w con IMPRESSION: 1. There is a full-thickness tear of the supraspinatus and greatest in itsmedially retracted by at least 3.3 cm. 2. Subscapularis appears to be intact but is thinned suspicion for apartial thickness tear which is most likely along the bursal surface. 3. There is narrowing of the subacromial space with unroofing of thehumeral head in the rotator interval. 4. There is evidence of previous rotator cuff repair. 5. There are mild degenerative changes of the acromioclavicular joint. Atype 3 acromion configuration is noted. There is lateral acromial downsloping. 6. There is spurring along the inferior articular surface of the humeralhead with narrowing of the glenohumeral joint space. Impression dictated by: Kamran Chavira M.D.07/24/2023 1:48 PM Dictation Location: [place] [address] Transcribed By: [facility] 07/24/23 1348 Dictated By: Kamran Chavira II, MD 07/24/23 1336 Signed By: <Electronically signed by Kamran Chavira II, MD inOV> 07/24/23 1348 Fredy Boswell NP IM CT PROCEDURES Final Result documented in this encounter Visit Diagnoses Not on filedocumented in this encounter Care Teams Motion Study Analyst Relationship Specialty Start Date End Date Dank Bella MD [address] [place] [address] PCP - General Family Medicine 07/25/23 08/12/23 Ashli Joseph DO [address] [place] [address] PCP - General Family Medicine 08/13/23 08/16/23 Dank Bella MD [address] [place] [address] PCP - General Family Medicine 08/17/23 Dank Bella MD [address] [place] [address] PCP - Sadia ARMSTRONG 06/18/24 12/15/24 documented as of this encounter
--- OUTSIDE RECORDS SUMMARY | 2025-01-28 09:30 | XMS_ITS | Clinical Summary ---
Author Organization [employer] tem Address [id number] [address] [place] [address] Care Team Providers Care Elder Assistant Name Role Phone Dank Bella MD Primary Care Provider [phone] Allergies No known active allergies Medications lansoprazole (PREVACID) 30 mg capsule Take 1 capsule (30 mg total) by mouth in the morning. Active baclofen (LIORESAL) 20 mg tablet Take 1 tablet (20 mg total) by mouth as needed in the morning and 1 tablet (20 mg total) as needed at noon and 1 tablet (20 mg total) as needed in the evening for muscle spasms. Active metoprolol succinate XL (TOPROL-XL) 50 mg 24 hr tablet Take 1 tablet (50 mg total) by mouth in the morning. Active celecoxib (CeleBREX) 200 mg capsule Take 1 capsule (200 mg total) by mouth in the morning and 1 capsule (200 mg total) before bedtime. Active simvastatin (ZOCOR) 40 mg tablet Take 1 tablet (40 mg total) by mouth in the morning. Active lisinopriL (PRINIVIL,ZESTR IL) 5 mg tablet Take 1 tablet (5 mg total) by mouth in the morning and 1 tablet (5 mg total) before bedtime. Active insulin lispro (HumaLOG) 100 unit/mL insulin pen Inject under the skin. Active FLUoxetine (PROzac) 20 mg capsule Take 1 capsule (20 mg total) by mouth in the morning. 01/07/2024 Active Active Problems Problem Noted Date Diagnosed Date Renal failure 12/20/2018 Benign non-nodular prostatic hyperplasia with lower urinary tract symptoms 02/09/2017 Overview (02/09/2017): luts - using finasteride and oxybutynin when last seen by Zach 2010 Encounters Date Type Department Care Team Description 12/02/2024 12:45 PM EDT Telephone Visit [facility] [address] [place] [address] Hanna Laguerre MD SOB (shortness of breath) (Primary Dx); Personal history of tobacco use, presenting hazards to health; Obstructive sleep apnea syndrome 11/17/2024 10:58 AM EDT - 11/17/2024 11:59 PM EDT Hospital Encounter [facility] - Pulmonary Function [address] [place] [address] Hanna Laguerre MD SOB (shortness of breath) Discharge Disposition: Home 11/17/2024 Travel from Last 3 Months Immunizations Immunization Administration Dates Next Due Influenza, Im Trivalent Preservative 03/05/2016, 02/01/2015 Influenza, Injectable, quadrivalent (PF) 018 Influenza, Unspecified 03/02/2017 Pneumococcal Conjugate 13-Valent 08/04/2013 Tdap 08/18/2014 Zoster Live 02/18/2015 Family History Medical History Relation Name Comments Alzheimer's disease Father Parkinsonism Father Diabetes Mother Robert Sneed Heart disease Mother Robert Sneed Hypertension Mother Robert Sneed Stroke Mother Robert Sneed Hyperlipidemia Paternal Grandfather Relation Name Status Comments Father Mother Robert Sneed Alive Paternal Grandfather Social History Tobacco Use Types Packs/Day Years Used Date Smoking Tobacco: Former Cigarettes 3 47.2 1 975 - 09/2021 Smokeless Tobacco: Never Tobacco Cessation:Counseling Given: Not Answered Alcohol Use Standard Drinks/Week Comments No 0 (1 standard drink = 0.6 oz pur e alcohol) PHQ-2 Answer Date Recorded Total Score 0 06/29/2020 Childcare Answer Date Recorded Childcare Unknown 11/27/2018 Employment Answer Date Recorded Employment Unknown 11/27/2018 Purpose - Life Answer Date Recorded Purpose and direction in life Unknown Sex and Gender Information Value Date Recorded Sex Assigned at Not on file Legal Sex Male 11:22 AM EDT Gender Identity Not on file Sexual Orientation Not on file Last Filed Vital Signs Vital Sign Reading Time Taken Comments Blood Pressure 114/73 10/27/2024 10:30 AM EDT Pulse 79 10/27/2024 10:30 AM EDT Temperature 36.2 C (97.1 F) 04/15/2021 9:51 AM EDT Respiratory Rate 14 07/19/2020 10:2 7 AM EST Oxygen Saturation 97% 10/27/2024 10: 30 AM EDT Inhaled Oxygen Concentration - - Weight 116.8 kg (257 lb 9.6 oz) 025 10:30 AM EDT Height 175.3 cm (5' 9.02 ) 10/27/2024 1 0:30 AM EDT Body Mass Index 38.02 10/27/2024 10:30 AM EDT Plan of Treatment Upcoming Encounters Date Type Department Care Team (Late st Contact Info) Description 05/25/2025 9:45 AM EST Office Visit [facility] [address] [place] [address] Hanna Laguerre MD [address] [place] [address] Health Maintenance Due Date Last Done Comments Depression Screening 1967 Adult BMI Follow Up Plan 09/15/1973 Abdominal Aortic Aneurysm (A AA) Screen 09/15/2020 12/20/2018 Fall Risk Screening 09/15/2020 COVID-19 Vaccine (2023-2 5 season) 2024 04/09/2022, 04/13/2021, 01/17/2021, Additional history exists Influenza Vaccine 02/16/2025 02/28/2024, , 04/09/2022, Additional history exists Adult BMI Screening 10/27/2025 10/27/2024 Tobacco Screening 10/27/2025 10/27/2024 DTaP,Tdap and Td Vaccines (4 - Td or Tdap) 01/20/2031 01/20/2021, 01/20/2021, 08/18/2014 Zoster (Shingles) Vaccine Completed 2022, 02/14/2023, 02/18/2015 Goals Goal Patient Goal Type Associated Problems Recent Progress Patient-Stated? Author <enter goal here> General Yes Zoraida Santana, RN Note: Evaluation of progress towards goal: Home self care with childrens support Medical Devices Implanted Type Area Yarn Preparation Supervisor Device Identifier Shelf Expiration Date Model / Serial / Lot Swivelock 4.75 - Sna - [id number] Implanted:Qty: 2 on 12/10/2017 by Karsten Crowell, DO at [facility] [place] Right: Shoulder Arthrex 07/18/2019 [id number] / NA / [id number] Incv/Swivelock 4.75 Use [id number] - Sna - [id number] Implanted:Qty: 2 on 07/19/2020 by Karsten Crowell, DO at [facility] Right: Shoulder Arthrex 03/17/2024 [id number] / NA / [id number] Procedures Procedure Name Priority Date/Time Associated Diagnosis Comments SPIROMETRY PRE/POST BRONCHODILATOR AND DLCO Routine 11/17/2024 11:21 AM EDT SOB (shortness of breath) US RETROPERITONEAL COMPLETE Routine 12/20/2018 1:37 PM EDT from Last 3 Months or Most Recently Relevant to Health Maintenance Results * SPIROMETRY PRE/POST BRONCHODILATOR AND DLCO (11/17/2024 11:21 AM EDT) Narrative MANUALLY TRANSCRIBED RESULTS - 12/10/2024 8:59 AM EDT Normal FVC, 82% predicted, normal FEV1, 90% predicted. Normal ratio. No significant bronchodilator response. Normal DLCO. Impression: Normal spirometry and DLCO. Clinical correlation is recommended. us Hanna Laguerre MD PFT ORDERABLES Final Resu lt MANUALLY TRANSCRIBED RESULTS * Ultrasound retroperitoneal complete (12/20/2018 1:37 PM EDT) Anatomical Region Laterality Modality Pelvis, Body Ultrasound 12/20/2018 1:43 PM EDT Narrative 12/20/2018 1:44 PM EDT RENAL ULTRASOUND HISTORY: Acute kidney injury COMPARISON: None FINDINGS: The right kidney measures 11.4 cm and the left kidney 12.4 cm in length. Cortical thickness and corticomedullary differentiation are preserved. No renal stones, masses, or collecting system dilatation. Fleming catheter in bladder. IMPRESSION: Normal renal ultrasound. Finalized by Abelardo Andres MD on 12/20/2018 1:44 PM Procedure Note Abelardo Andres MD - 12/20/2018 RENAL ULTRASOUND HISTORY: Acute kidney injury COMPARISON: None FINDINGS: The right kidney measures 11.4 cm and the left kidney 12.4 cm in length.Cortical thickness and corticomedullary differentiation are preserved. Norenal stones, masses, or collecting system dilatation. Fleming catheter in bladder. IMPRESSION: Normal renal ultrasound. Finalized by Abelardo Andres MD on 12/20/2018 1:44 PM Carol Gillis MD [facility] [place] ORDERABLES Final Resul t from Last 3 Months or Most Recently Relevant to Health Maintenance Insurance [employer] MEDICARE DEPARTMENT OF LABOR Advance Directives * Full Code (Latest Code Status on File) Date Activated Date Inactivated Comments 12/20/2018 5:21 AM 12/23/2018 4:36 PM Care Teams Elder Assistant Relationship Specialty Start Date End Date Dank Bella MD PCP - General Family Medicine 03/12/24
--- OUTSIDE RECORDS SUMMARY | 2025-01-28 09:30 | XMS_ITS | Continuity of Care Document ---
Author Organization [facility] Address [address] [place] [address] Problems Unknown Problems Results Test Value / Unit Interpretation Reference Ran ge SARS-COV-2 (COVID19), NAAT[[id number]] Collected: 07/16/2020 04:27 PM Specimen Received: 07/17/2020 05:22 PM SARS-CoV-2 INTERPRETATION [[id number]] Negative Roselyn l See Note SARS-CoV-2 RNA NOT DETECTEDN egative results do not preclude SARS-CoV-2 infection and should notbe used as the sole basis for patient management decisions. Negativeresults must be combined with clinical observations, patient history,and epidemiological information. Optimum specimen types and timingfor peak viral levels during infections caused by SARS-CoV-2 have notbeen determined. Collection of multiple specimens or types ofspecimens may be necessary to detect virus. Improper specimencollection and handling, sequence variability under primers/probes,or organism present below the limit of detection may lead to falsenegative results. Positive and negative predictive values oftesting are highly dependent on prevalence. False negative testresults are more likely when prevalence is high. SOURCE [[id number]] NASOPHARYNGEAL Normal Note: Methodology is [employer] Real-Time RT-PCR. The expectedresult or reference range is NEGATIVE (Not Detected). For more information regarding COVID-19 testing to include clinicalinformation, methodology detail, intended use, FDA authorization andrecommended fact sheets for patients or healthcare providers, see NewTest Announcement: SARS-CoV-2 (COVID-19) by NAAT at URL below (note,fact sheets are provided by method given in report:[email or web address]/ Alternatively, see downloadable PDF fact sheet at:[email or web address] Allergies, adverse reactions, alerts No known allergies and adverse reactions Medications No administered medications reported Vital Signs No vital signs reported Social History No smoking Hx information available
--- OUTSIDE RECORDS SUMMARY | 2025-01-28 09:30 | XMS_ITS | Encounter Summary ---
Author Organization [facility] Address [address] [place] [address] Care Team Providers Care Pbx Wire Chief Name Role Phone Dank Bella MD Primary Care Provider [phone] Source Comments In the event this information is protected by the Federal Confidentiality of Alcohol and Drug AbusePatient Records regulations: The Federal rules restrict any use of the information to criminally investigate or prosecute any alcohol or drug abuse patient.[facility] Encounter Details Date Type Department Care Team (Late st Contact Info) Description 07/31/2021 Patient Msg Radiation Oncology [address] [place] [address] [place] [address] Fawad Bansal MD [address] [place] [address] [place] [address] Appointment Cancellation Request Social History Tobacco Use Types Packs/Day Years Used Date Smoking Tobacco: Every Day Cigarettes 3 30 Smokeless Tobacco: Never Alcohol Use Standard Drinks/Week Comments Not Currently 0 (1 standard drink = 0.6 oz pur e alcohol) PHQ-2 Answer Date Recorded PHQ-2 score 0 01/29/2021 Area Deprivation Index Answer Date Casimiro rded National Score (1-100), lower number is lower ri sk Not on file 05/22/2020 State Score (1-10), lower number is lower risk N ot on file 05/22/2020 Data from: https://www.neighborhoodatlas.medicine.[facility].edu/. Last address used for calculation Not on file 05/22/2020 Sex and Gender Information Value Date Recorded Sex Assigned at Male 10/31/2020 9:57 PM EDT Legal Sex Male 1:15 PM EDT Gender Identity Male 10/31/2020 9:57 PM EDT Sexual Orientation Straight 10/31/2020 9: 57 PM EDT documented as of this encounter Plan of Treatment Not on file documented as of this encounter Visit Diagnoses Not on filedocumented in this encounter Care Teams Pbx Wire Chief Relationship Specialty Start Date End Date Dank Bella MD [address] [place] [address] PCP - General Family Medicine 10/06/19 documented as of this encounter
--- OUTSIDE RECORDS SUMMARY | 2025-01-28 09:30 | XMS_ITS | Encounter Summary ---
Author Organization [facility] Address [address] [place] [address] Care Team Providers Care Maintenance Truck Driver Name Role Phone Dank Bella MD Primary Care Provider [phone] Source Comments In the event this information is protected by the Federal Confidentiality of Alcohol and Drug AbusePatient Records regulations: The Federal rules restrict any use of the information to criminally investigate or prosecute any alcohol or drug abuse patient.[facility] Encounter Details Date Type Department Care Team (Late st Contact Info) Description 09/15/2020 [place] [address] Provider, [facility] Medicare Coverage of Physical Exams Social History Tobacco Use Types Packs/Day Years Used Date Smoking Tobacco: Every Day Cigarettes 3 30 Smokeless Tobacco: Never Alcohol Use Standard Drinks/Week Comments Not Currently 0 (1 standard drink = 0.6 oz pur e alcohol) PHQ-2 Answer Date Recorded PHQ-2 score 0 02/12/2020 Area Deprivation Index Answer Date Casimiro rded National Score (1-100), lower number is lower ri sk Not on file 05/22/2020 State Score (1-10), lower number is lower risk N ot on file 05/22/2020 Data from: https://www.neighborhoodatlas.medicine.[facility].edu/. Last address used for calculation Not [...] on filedocumented in this encounter Care Teams Maintenance Truck Driver Relationship Specialty Start Date End Date Dank Bella MD [address] [place] [address] PCP - General Family Medicine 10/06/19 documented as of this encounter
--- OUTSIDE RECORDS SUMMARY | 2025-01-28 09:30 | XMS_ITS | Encounter Summary ---
Author Organization [facility] Address [facility] [id number] [address] [place] [address] Care Team Providers Care Bunch Maker Hand Name Role Phone Dank Bella MD Primary Care Provider [phone] Encounter Details Date Type Department Care Team (Late st Contact Info) Description 03/12/2024 Telephone [facility] Pul[facility] [address] [place] [address] Hanna Laguerre MD [address] [facility] [place] [address] Social History Tobacco Use Types Packs/Day Years Used Date Smoking Tobacco: Former Cigarettes 3 47.2 1 975 - 09/2021 Smokeless Tobacco: Never Alcohol Use Standard Drinks/Week Comments No 0 [...] encounter Miscellaneous Notes * Telephone Encounter - Olive Finn Patriciajamalairamada - 03/12/2024 8:32 AM EDT Patient stopped in the office today to let us know he went to get his chest ct done, but was unableto do so because of his anxiety. Patient stated he took extra dose diazepam before the ct scan and still was not able to do ct scan. Patient would like to know what KW would like him to do. Please advise. * Telephone Encounter - Hanna Laguerre MD - 03/12/2024 8:32 AM EDT Appreciate him trying. I can see if we have an open CT. documented in this encounter Plan of Treatment Upcoming Encounters Date Type Department Care Team (Late st Contact Info) Description 05/25/2025 9:45 AM EST Office Visit [facility] [address] [place] [phone] Hanna Laguerre MD [address] [facility] [address] [place], [place] [id number] documented as of this encounter Goals Goal Patient Goal Type Associated Problems Recent Progress Patient-Stated? Author <enter goal here> General Yes Zoraida Santana, RN Note: Evaluation of progress towards goal: Home self care with childrens support documented as of this encounter Visit Diagnoses Not on filedocumented in this encounter Additional Health Concerns Assessment Noted Time PHQ-9 Depression Total Score: 0 06/29/19 21 11:08 AM EST documented as of this encounter Care Teams Bunch Maker Hand Relationship Specialty Start Date End Date Dank Bella MD PCP - General Family Medicine 03/12/24 documented as of this encounter
--- OUTSIDE RECORDS SUMMARY | 2025-01-28 09:30 | XMS_ITS | Clinical Summary ---
Author Organization [facility] Address [address] [place] [address] Phone Care Team Providers Care Business Loan Processor Name Role Phone Unavailable Primary Care Provider Unavailabl e Social History Tobacco Use Types Packs/Day Years Used Date Smoking Tobacco: Never Assessed Sex and Gender Information Value Date Recorded Sex Assigned at Not on file Legal Sex Male 12:27 PM EST Gender Identity Not on file Sexual Orientation Not on file Plan of Treatment Not on file
--- OUTSIDE RECORDS SUMMARY | 2025-01-28 09:30 | XMS_ITS | Clinical Summary ---
Author Organization [facility] Address [address] [place] [address] Care Team Providers Care Public Health Dietitian Name Role Phone Unavailable Primary Care Provider Unavailabl e Social History Tobacco Use Types Packs/Day Years Used Date Smoking Tobacco: Never Assessed Sex and Gender Information Value Date Recorded Sex Assigned at Not on file Legal Sex Male 12:14 AM EDT Gender Identity Not on file Sexual Orientation Not on file Last Filed Vital Signs Vital Sign Reading Time Taken Comments Blood Pressure 120/70 11/19/2018 4:12 PM EDT Pulse - - Temperature - - Respiratory Rate - - Oxygen Saturation 95% 11/19/2018 4:11 PM EDT Inhaled Oxygen Concentration - - Weight 109 kg (241 lb) 11/19/2018 3:41 PM EDT Height 177.8 cm (5' 10 ) 11/19/2018 3:48 PM EDT Body Mass Index 34.58 11/19/2018 3:41 PM EDT Plan of Treatment Not on file
--- OUTSIDE RECORDS SUMMARY | 2025-01-28 09:30 | XMS_ITS | Encounter Summary ---
Author Organization [facility] Address [address] [place] [address] Care Team Providers Care Beer Still Runner Compounder Name Role Phone Dank Bella MD Primary Care Provider [phone] Ashli Joseph DO Primary Care Provider [phone] Dank Bella MD Primary Care Provider [phone] Dank Bella MD Unavailable Encounter Details Date Type Department Care Team (Late st Contact Info) Description 07/17/2023 Orders Only [facility] [address] [place] [phone] Dank Bella MD [address] [place] [address] Social History Tobacco Use Types Packs/Day Years [...] often do you attend chur ch or yazdanism services? Never 01/09/2023 Do you belong to any clubs o r organizations such as methodist groups, unions, fraternal or athletic groups, or [...] Recorded Patient Health Questionnaire-2 Score 0 01/16/2023 [facility] of Occupat ional Health - Occupational Stress [...] AM EDT Office Visit [facility] [address] [place] [phone] Deb Matthew MD [address] [place] [address] documented as of this encounter Visit Diagnoses Not on filedocumented in this encounter Care Teams Beer Still Runner Compounder Relationship Specialty Start Date End Date Dank Bella MD [address] [place] [address] PCP - General Family Medicine 07/25/23 08/12/23 Ashli Joseph DO [address] [place] [address] PCP - General Family Medicine 08/13/23 08/16/23 Dank Bella MD [address] [place] [address] PCP - General Family Medicine 08/17/23 Dank Bella MD [address] [place] [address] PCP - Sadia ARMSTRONG 06/18/24 12/15/24 documented as of this encounter
--- OUTSIDE RECORDS SUMMARY | 2025-01-28 09:30 | XMS_ITS | Encounter Summary ---
Author Organization [facility] Address [address] [place] [address] Care Team Providers Care Government Service Executive Name Role Phone Dank Bella MD Primary Care Provider [phone] Ashli Joseph DO Primary Care Provider [phone] Dank Bella MD Primary Care Provider [phone] Dank Bella MD Unavailable Encounter Details Date Type Department Care Team (Late st Contact Info) Description 07/24/2023 External Result Encounter [facility] External Department Unsolicited Fredy Boswell, SOCIETY REPORTER [address] [place], [place] [phone] Social History Tobacco Use Types Packs/Day Years [...] often do you attend chur ch or evangelical services? Never 01/09/2023 Do you belong to any clubs o r organizations such as moravian groups, unions, fraternal or athletic groups, or [...] Recorded Patient Health Questionnaire-2 Score 0 01/16/2023 [facility] of Occupat ional Health - Occupational Stress [...] place to sleep or slept in a skilled nursing (including now)? No 01/09/2023 Sex and Gender [...] [facility] [address] [place] [address] Deb Matthew MD [address] [place] [address] documented as of this encounter Procedures Procedure Name Priority Date/Time Associated Diagnosis Comments IR FLUOROSCOPY GUIDED NEEDLE PLACEMENT 07/24/2023 12:31 PM EST documented in this encounter Results * IR fluoroscopy guided needle placement (07/24/2023 12:31 PM EST) Anatomical Region Laterality Modality X-Ray Angiograph y 07/24/2023 12:3 1 PM EST Impressions 07/24/2023 12:42 PM EST Successful fluoroscopically guided left shoulder arthrogram with CT to follow. Impression dictated by: Kamran Chavira M.D.07/24/2023 12:39 PM Dictation Location: [place] [address] Transcribed By: [facility] 07/24/23 1239 Dictated By: Kamran Chavira II, MD 07/24/23 1231 Signed By: <Electronically signed by Kamran Chavira II, MD in OV> 07/24/23 1239 Narrative 07/24/2023 12:42 PM EST [facility] [place] [address] [place] [address] Fluoroscopy Report Signed Patient: Milad Sneed MR#: [id number] : 1955 Acct:[id number] Age/Sex: 67 / M ADM Date: 07/24/23 Loc: Room: Type: [facility] Attending Dr: Fredy Boswell SOCIETY REPORTER-C Copies to: Fredy Boswell [employer] Ordering Provider: Fredy Boswell CNP Date of [...] rotator cuff repair. FL/FL guided needle placement Procedure Note Radiology, Radiologist, - 07/24/2023 [facility] [place] [address] Fluoroscopy Report Signed Patient: Milad SneedMR#: [id number] : 6Acct:[id number] Age/Sex: 67 / MADM Date: 07/24/23 Loc: XD Room:Type: [facility] Attending Dr: Fredy Boswell SOCIETY REPORTER-C Copies to: Fredy Boswell CNP Ordering Provider: Fredy Boswell CNP Date of Service: 07/24/23 FL/FL guided needle placement: [id number] FL guided needle placement 07/24/2023 9:10 AM SIGNS AND SYMPTOMS: History of previous rotator cuff repair. Poppingsensation in left shoulder with loss of strength in left arm CONTRAST: 2 mL of Isovue-M 200 as well as 13 mL of a solution of normalsaline and Isovue-200 INFORMED CONSENT: Reason for procedure was discussed with the patient. The procedureexpectations risks benefits options and alternatives were discussed. All the questions were answered.The patient understood the results cannot be guaranteed. The procedure is indicated and risks wereacceptable. Consent was obtained. PROCEDURE: The left glenohumeral joint was visualized fluoroscopically. The skin wasmarked over the glenohumeral joint space along the medial margin of the humeral head. Theskin was prepped and draped in a sterile manner. 8 mL of lidocaine 2% without epinephrine wereused for local anesthesia. A 20-gauge spinal needle was introduced into the glenohumeral joint space.2 mL of Isovue-M 200 were injected to confirm intra-articular location. A total of 13 mL of asolution of Isovue-M 200 and normal saline was then injected under fluoroscopic visualization. Thepatient tolerated the procedure well. No immediate complications were detected. Fluoroscopicimages demonstrate bone anchors consistent with previous rotator cuff repair. FL/FL guided needle placement IMPRESSION: Successful fluoroscopically guided left shoulder arthrogram with CT tofollow. Impression dictated by: Kamran Chavira M.D.07/24/2023 12:39 PM Dictation Location: [place] [address] Transcribed By: [facility] 07/24/23 1239 Dictated By: Kamran Chavira II, MD 07/24/23 1231 Signed By: <Electronically signed by Kamran Chavira II, MD inOV> 07/24/23 1239 Fredy Boswell SOCIETY REPORTER IMG IR PROCEDURES Final Result documented in this encounter Visit Diagnoses Not on filedocumented in this encounter Care Teams Government Service Executive Relationship Specialty Start Date End Date Dank Bella MD [address] [place] [phone] PCP - General Family Medicine 07/25/23 08/12/23 Ashli Joseph DO [address] [place] [address] PCP - General Family Medicine 08/13/23 08/16/23 Dank Bella MD [address] [place] [address] PCP - General Family Medicine 08/17/23 Dank Bella MD [address] [place] [address] PCP - Sadia ARMSTRONG 06/18/24 12/15/24 documented as of this encounter
--- OUTSIDE RECORDS SUMMARY | 2025-01-28 09:32 | XMS_ITS | CCD ---
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 Role Phone DANK CAMPO Primary Care [...] NADERER, DR DANK Leon Primary Care Unavailable [place], DR SORIN Rodarte Consulting Unavailable NADERER, DR DANK Leon Admitting Unavailable NADERER, DR DANK Leon Attending Unavailable NADERER, DR DANK Leon Primary Care Unavailable FELIXEREGraciela, DR DANK Leon Consulting Unavailable MD Dank Campo Primary Care Provider MD Kike Bernal Attending Provider [phone] MD Dank Campo Attending Provider MD Dank Campo Attending Provider Jena RAYMUNDO, Dank Primary Care Provider MD Dank Campo Primary Care Provider [phone] KERRI Boswell Attending Provider MD Dank Campo Referring Provider GREGORIA RALPH Referring Unavailable FELIXERER, DANK Primary Care Unavailable Peterson PETERSEN Attending Unavailable ROSALVA MURO Attending Unavailable JINA, ROSALVA De Luna Admitting Unavailable Peterson PETERSEN Attending Unavailable DEJUAN PETERSEN Attending Unavailable Peterson PETERSEN Attending Unavailable Peterson PETERSEN Attending Unavailable Dank Campo MD Primary Care Provider Dank Campo MD Primary Care Provider Rich Alvares APRN Attending Provider Dank Campo Primary Care Unavailable Asaad, Imad Attending Unavailable Asaad, Imad Admitting Unavailable Naderer, Dank Admitting Unavailable Naderer, Dank Referring Unavailable Naderer, Dank Attending Unavailable Felixeregraciela, Dank Primary Care Unavailable Jyoti Roth Admitting Unavailable Naderer, Dank Primary Care Unavailable Jyoti Roth Attending Unavailable Jena, Dank Admitting Unavailable Naderer, Dank Attending Unavailable Jena, Dank Primary Care Unavailable Naddano, Dank Primary Care Unavailable Rich Alvares Attending Unavailable Rich Alvares Admitting Unavailable Dank Campo MD Primary Care Provider [phone] Dank Campo MD Primary Care Provider Dank Campo MD Primary Care Provider Gistephanieitis , Andrius Vytauttio Attending Unavailable Giedraitis , Andrius Vytautas Attending Unavailable Giedraitis , Andrius Vytautas Attending Unavailable Gieditis , Andrius Vytautas Attending Unavailable Gieditis , Andrius Vytautas Attending Unavailable Giradha RAYMUNDO, Andrius Vytautas Attending Unavailable Giedajmes RAYMUNDO, Roma Arteaga Attending Unavailable Jessica RAYMUNDO, Roma Arteaga Attending Unavailable Dank Campo MD Primary Care Provider Rich Alvares APRN Attending Provider Dank Campo MD Unavailable JYOTI ROTH Attending Unavailable NADERER, DANK Attending Unavailable RUSHER, DEXTER Leon Attending Unavailable PETZNMALLORY, ASHLI Scott Attending Unavailable RUSHER, DEXTER Leon Attending Unavailable NADERER, DANK Attending Unavailable RUSHER, DEXTER Leon Attending Unavailable NADERER, DANK Attending Unavailable PETZNMALLORY, ASHLI Scott Attending Unavailable JR. JOON, JOHANNE Vidales Attending Unavaila graciela HDEZ JR., JOHANNE Vidales Referring Unavaila ble REBECCA DIAS Attending Unavailable DIAS, REBECCA Cornell Attending Unavailable PETZNASHLI JULES Attending Unavailable DIAS, REBECCA Cornell Attending Unavailable BERKOWITZALMA Attending Unavailable DIAS, REBECCA J Referring Unavailable VICKKADEN Attending Unavailable DIAS, REBECCA J Referring Unavailable VICK, KADEN Attending Unavailable DIAS, REBECCA J Referring Unavailable NADERERDANK Attending Unavailable BLACKSTONVALENTINE Attending Unavailable DIAS, REBECCA J Referring Unavailable RUS, DEXTER Leon Attending Unavailable RUS, DEXTER Leon Referring Unavailable VICKKADEN Attending Unavailable DIAS, REBECCA J Referring Unavailable NANDA WARD Attending Unavailable DIAS, REBECCA J Referring Unavailable BERKOWITZALMA Attending Unavailable DIAS, REBECCA J Referring Unavailable BERKOWITZALMA Attending Unavailable DIAS, REBECCA J Referring Unavailable JUSTINA CARRILLO Attending Unavailable DIAS, REBECCA J Referring Unavailable BERKOWITZ, ALMA Attending Unavailable DIAS, REBECCA J Referring Unavailable DIAS, REBECCA J Attending Unavailable VIKCKADEN Attending Unavailable DIAS, REBECCA J Referring Unavailable BERKOWITZ, ALMA Attending Unavailable DIAS, REBECCA J Referring Unavailable MAUREEN THOMPSON Attending Unavailable DIAS, REBECCA J Referring Unavailable DIAS, REBECCA Cornell Attending Unavailable PETZNASHLI JULES Attending Unavailable RUS, DEXTER Leon Attending Unavailable Dank Campo MD Primary Care Provider HANNA BUTCHER Attending Unavailable DANK CAMPO Referring Unavailable DANK CAMPO Primary Care Unavailable HANNA BUTCHER Attending Unavailable DANK CAMPO Referring Unavailable DANK CAMPO Primary Care Unavailable DANK CAMPO Primary Care Unavailable HANNA BUTCHER Attending Unavailable HANNA BUTCHER Referring Unavailable DANK CAMPO Primary Care Unavailable REBECCA DIAS Referring Unavailable DANK CAMPO Primary Care Unavailable HANNA BUTCHER Attending Unavailable HANNA BUTCHER Referring Unavailable DANK CAMPO Primary Care Unavailable HANNA BUTCHER Attending Unavailable HANNA BUTCHER Referring Unavailable HANNA BUTCHER Attending Unavailable DANK CAMPO Referring Unavailable DANK CAMPO Primary Care Unavailable Dank Campo MD Primary Care Provider [phone] Rich Alvares APRN Attending Provider Allergies Allergy Classification Reported Allergen(s) Allergy Type Date of Onset Reaction(s) Facility (1 source) No Known Medication Allergies; Translations: [No Known Medication Allergies] Propensity to adverse reactions (disorder) [facility] Repository Medications Current Medications Medication Drug Class(es) Dates Sig (Normalized) Sig (Original) amoxicillin 875 mg oral tablet (4 sources) Penicillin-class Antibacterial Start: 07-28-2024 take 1 [...] MG PO Daily January 30, 2019 12:00am Complies with drug therapy ASPIRIN 81 MG ch ewable tablet Chew [...] Ordered Start: 01-30-2019 take 1 capsule by [facility] twice daily Celecoxib 200 mg Capsule Active 200 MG PO Twice daily January 30, 2019 12:00am Complies with drug therapy Continuous Blood Gluc Sensor (Dexcom G7 Sensor) misc (20 sources) Start: 06-05-2023 End: 06-04-2024 Continuous Blood Gluc Sensor (Dexcom G7 Sensor) [facility] [place] Indications: Type 2 diabetes mellitus with diabetic polyneuropathy, with long-term current use of insulin (CMS/HCC) Inject 1 Device under the skin See administration instructions Change every 10 days 9 each 3 06/05/2023 06/04/2024 Active Continuous Blood Gluc Sensor (FreeStyle Cornelius 2 Sensor) misc (2 sources) Start: 05-23-2023 End: 07-30-2023 Continuous Blood Gluc Sensor (FreeStyle Cornelius 2 Sensor) [facility] [place] Indications: Type 2 diabetes mellitus with diabetic polyneuropathy, with long-term current use of insulin (CMS/HCC) Use as directed 2 each 11 05/23/2023 07/30/2023 Discontinued (Therapy completed) Continuous Glucose [facility]Dexcom G7 Sensor[facility] ([facility] Start: 06-13-2024 Continuous Glu cose Sensor (Dexcom G7 Sensor) [facility] [place] Indications: Type 2 diabetes mellitus with diabetic polyneuropathy, with long-term current use of insulin (CMS/HCC) USE DIRECTED to check BLOOD SUGAR *change EVERY TEN days * 9 each 3 06/13/2024 Active cyclobenzaprine (20 sources) Muscle Relaxant Start: 04-15-2024 cyclobenzaprin e Active PO April 15, 2024 12:00am Complies with drug therapy Start: 04-15-2024 cyclobenzaprin e Active PO April [...] Active dicyclomine hydrochloride 10 mg oral capsule (13 sources) Anticholinergic Start: 08-05-2024 take 1 capsule by mouth three times daily Dicyclomine 10 mg capsule Active 10 MG PO Three times daily 90 30 August 05, 2024 1:00am Complies with drug therapy Start: 02-11-2020 End: 12-08-2020 take 1 tablet [...] MG PO Daily October 30, 2023 12:00am Complies with drug therapy fluticasone 0.05 mg/inh Nasal [place] (5 sources) Start: 07-28-2019 fluticasone 0. 05 mg/inh Nasal [place] Nasal, Daily, Refill(s) 0 Start Date: 07/28/19 Status: Ordered gabapentin 300 mg oral capsule (20 sources) Anti-epilepti c Agent Start: 07-13-2024 take 1 capsule by mouth in the morning gabapentin (Neurontin) 300 MG capsule Take 300 mg by mouth in the morning and 300 mg before bedtime. 07/13/2024 Active Start: 04-15-2024 gabapentin Act peter PO April 15, 2024 12:00am Complies with drug therapy Start: 04-15-2024 gabapentin Act peter PO April 14, 2024 11:00pm Start: 04-15-2024 gabapentin Act peter PO April 15, 2024 12:00am End: 07-31-2024 gabapentin (Neurontin) 100 M G capsule Take by mouth 07/31/2024 Discontinued 3 ml insulin glargine 100 unt/ml pen injector (20 sources) Insulin Analog Start: 08-27-2024 Lantus SoloSta r 100 UNIT/ML pen Indications: Type 2 diabetes mellitus with diabetic polyneuropathy, with long-term current use of insulin (CMS/HCC) INJECT 60 UNITS SUBCUTANEOUSLY AT BEDTIME 60 mL 3 08/27/2024 Active Start: 07-31-2024 End: 07-31-2025 insulin glargine (Lantus Pia oStar) 100 UNIT/ML [...] 07/31/2024 Discontinued (Dose adjustment) Start: 08-09-2023 End: 02-21-2025 insulin glargine (Lantus Pia oStar) 100 UNIT/ML pen Indications: Type 2 diabetes mellitus with diabetic polyneuropathy, with long-term current use of insulin (CMS/[facility]) Inject 60 Units under the skin at bedtime 60 mL 3 08/09/2023 04/29/2024 Discontinued (Dose adjustment) Start: 04-27-2023 Insulin Glargi ne (Lantus Solostar U-100 Insulin) 100 unit/mL (3 mL) Insulin Pen Active 60 UNIT SUBCUT Every evening April 27, 2023 1:00am Complies with drug therapy Start: 01-16-2023 End: 07-30-2023 Lantus SoloStar 100 UNIT/ML pen Indications: Type 2 diabetes mellitus with diabetic polyneuropathy, with long-term current use of insulin (CMS/[facility]) Inject 60 Units under the skin [...] 3x/Day before meals April 27, 2023 1:00am Complies with drug therapy Start: 04-27-2023 inject 1 dose by sub [...] Status: Ordered ketoconazole 20 mg/ml topical cream (7 sources) Azole Antifungal Start: 08-09-2023 Ketoconazole 2 % cream Active 1 APPLIC TOPICAL Twice daily August 09, 2023 1:00am Complies with drug therapy lisinopril 10 mg oral tablet (20 sources) [...] MG PO Daily January 30, 2019 12:00am Complies with drug therapy take 1 tablet by maciej th in [...] MG PO Daily August 09, 2023 1:00am Complies with drug therapy Start: 06-20-2023 take 1 tablet by maciej [...] oral tablet (20 sources) beta-Adrenergic Nirav Start: 08-25-2024 take 1 tablet by mouth once daily metoprolol succinate XL (Toprol-XL) 50 MG 24 hr tablet Indications: Ventricular premature depolarization TAKE 1 TABLET BY MOUTH DAILY 30 tablet 5 08/25/2024 Active Start: 02-19-2024 take 1 tablet by maciej th once [...] Start: 01-30-2019 take 1 capsule by mo [facility] once daily Metoprolol Succinate 50 mg Capsule,Sprinkle,Er 24hr Active 50 MG PO Daily January 30, 2019 12:00am Complies with drug therapy take 1 tablet by maciej every twenty-four hours in the morning metoprolol succinate XL (TOPROL-XL) 50 mg 24 hr tablet Take 1 tablet (50 mg total) by mouth in the morning. Active take 1 tablet by maciej th once daily metoprolol succinate XL (TOPROL-XL) 50 mg 24 hr tablet Take 50 mg by mouth daily. 0 Active potassium chloride 20 meq or al tablet (3 sources) Start: 02-12-2023 Potassium Chlo ride (Eqv-K-Tab) 20 mEq oral tablet, extended release Refills(s) 0 Start Date: 02/12/23 Status: Ordered Semaglutide (7 sources) Start: 08-09-2023 Semaglutide (O zempic) 0.25 mg or 0.5 mg (2 mg/3 mL) pen injector Active 1 MG SUBCUT every week August 09, 2023 1:00am takes on Sunday Complies with drug therapy Start: 08-09-2023 Semaglutide (O zempic) 0.25 mg [...] PO Every evening January 30, 2019 12:00am Complies with drug therapy spironolactone 50 mg oral tablet (20 sources) [...] 5 days 20 tablet 04/24/2024 04/29/2024 Discontinued [id number] 200 actuat albuterol 0.09 mg/actuat metered dose inhaler (2 sources) beta2-Adrenergic Agonist Start: 12-22-2020 End: 08-15-2023 take 2 puff(s) by inhalation every four hours as needed for wheezing albuterol (PROVENTIL HFA;VENTOLIN HFA) 90 mcg/actuation inhaler Indications: Chronic obstructive pulmonary disease, unspecified COPD type ([facility]) Inhale 2 puffs every 4 (four) hours as needed for wheezing. 18 g 11 12/22/2020 08/15/2023 Discontinued (Discontinued by another clinician) clindamycin 300 mg oral capsule (5 sources) Lincosamide Antibacterial Start: 01-28-2021 take 2 capsules by mouth every twelve hours Clindamycin HCl 300 MG 2 capsules Orally bid for 10 day(s) Jan, Not-Taking dibucaine 0.01 mg/mg rectal ointment (11 sources) Standardized Chemical Allergen Start: 12-08-2020 End: 03-14-2021 Dibucaine 1 % ointment Discontinued 1 APPLIC WI Four times daily as needed for rectal discomfort 56 December 08, 2020 12:00am March 14, 2021 12:08pm docusate sodium 100 mg oral capsule (11 sources) Start: 12-08-2020 End: 03-14-2021 take 1 capsule by mouth once daily as needed Docusate Sodium (Sof-Lax) 100 mg capsule Discontinued 100 MG PO Daily as needed for hard stool 60 December 08, 2020 10:33am March 14, 2021 12:08pm fluticasone propionate 0.05 mg/actuat metered dose nasal spray (20 sources) Corticosteroid Start: 02-11-2020 End: 07-24-2022 Fluticasone Propionate (Flonase Allergy Relief) 50 mcg/actuation [place],Suspension Discontinued 1 SPRAY INTRANASAL Daily February 11, 2020 12:00am July 24, 2022 1:24pm Start: 07-28-2019 fluticasone 0. 05 mg/inh Nasal [place] Nasal, Daily, Refill(s) 0 Start Date: 07/28/19 [...] day Not-Taking furosemide 40 mg oral tablet (15 sources) Loop Diuretic Start: 12-18-2022 End: 10-30-2023 take 1 tablet by mouth once daily Furosemide 40 mg tablet Discontinued 40 MG PO Daily April 27, 2023 1:00am October 30, 2023 1:48pm Furosemide Activ e glipiZIDE 10 mg oral tablet (11 sources) Sulfonylurea Start: 01-30-2019 End: 08-18-2020 take [...] 2024 9:18am loratadine 10 mg oral tablet (11 sources) Start: 12-08-2020 End: 03-14-2021 take 1 tablet by mouth once daily as needed Loratadine (Claritin) 10 mg Tablet Discontinued 10 MG PO Daily as needed for Allergy Symptoms December 08, 2020 12:00am March 14, 2021 12:08pm Magnesium (11 sources) Start: 01-30-2019 End: 08-09-2023 take 2 [...] day(s) Not-Taking oxaprozin 600 mg oral tablet (10 sources) Nonsteroidal Anti-inflammatory Drug Start: 04-27-20 End: [...] Active pyridostigmine bromide 60 mg oral tablet (11 sources) Start: 01-30-2019 End: 08-18-2020 take 1 tablet by mouth three times daily Pyridostigmine [place] 60 mg Tablet Discontinued 60 MG PO Three times daily January 30, 2019 12:00am August 18, 2020 12:30pm semaglutide 14 mg oral tablet (5 sources) Start: 07-24-2022 End: 08-09-2023 take 1 tablet by mouth once daily Semaglutide (Rybelsus) 14 mg tablet Discontinued 14 MG PO Daily July 24, 2022 1:00am August 09, 2023 12:01pm Semaglutide (Rybelsus) 14 mg tablet (6 sources) [...] 2023 11:01am sucralfate 1000 mg oral tablet (11 sources) Aluminum Complex Start: 02-11-2020 End: 03-14-2021 take 1 tablet by mouth before mealtime Sucralfate 1 gram Tablet Discontinued 1 GM PO before meals February 11, 2020 12:00am March 14, 2021 12:09pm tamsulosin hydrochloride 0.4 mg oral capsule (13 sources) alpha-Adrenergi c Nirav Start: 01-30-2019 End: [...] Date Documented Da te Episodic/Chronic Abdominal pain (4 sources) Indigestion; Translations: [Epigastric pain] 04-15-2024 Episodic Acute and unspecified renal failure (20 sources) Renal failure syndrome; Translations: [Unspecified kidney failure] Onset: 9 12-04-2022 Chronic Anxiety disorders (20 sources) Generalized anxiety disorder; Translations: [Generalized anxiety disorder] Onset: 4 10-11-2023 Chronic Biliary tract disease (11 sources) Common bile duct calculus; Translations: [Calculus [...] 0 12-04-2022 Chronic Deficiency and other anemia (16 sources) Iron deficiency anemia; Translations: [Iron deficiency [...] 12-04-2022 Chronic Other aftercare (1 source) Other group home (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 therapy; Translations: [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] Onset: 3 Episodic Other aftercare (20 sources) Long-term current use of insulin; Translations: [FCI (current) use of insulin] Onset: 3 12-04-2022 Episodic Other and unspecified benign neoplasm (5 sources) History of polyp of colon; Translations: [Personal history of colonic polyps] Episodic Other bone disease and musculoskeletal deformities (20 sources) Posterior calcaneal exostosis; Translations: [Juvenile osteochondrosis of tarsus, right ankle] Onset: 3 12-04-2022 Chronic Other connective tissue disease (2 sources) Pain in left foot; Translations: [Pain in left foot] 05-29-2024 Episodic Other connective tissue disease (2 sources) Calcific tendinitis of right achilles tendon; Translations: [Achilles tendinitis, right leg] 09-24-2024 Episodic Other diseases of kidney and ureters (1 source) Urinary tract obstruction; Translations: [Other obstructive and reflux uropathy] Onset: 2 Episodic Other ear and sense organ disorders (20 sources) Chronic right myringitis; Translations: [Chronic myringitis, right ear] Onset: 3 12-04-2022 Chronic Other gastrointestinal disorders (6 sources) Irritable bowel syndrome with diarrhea; Translations: [Irritable bowel syndrome with diarrhea] 2024 Chronic Other gastrointestinal disorders (3 sources) Irritable bowel syndrome; Translations: [Irritable bowel syndrome without diarrhea] 07-30-2024 Chronic Other gastrointestinal disorders (2 sources) Irritable bowel syndrome without diarrhea; Translations: [Irritable bowel syndrome] 07-30-2024 Chronic Other gastrointestinal disorders (11 sources) Acquired arteriovenous malformation; Translations: [Angiodysplasia of colon with hemorrhage] 09-02-2020 Episodic Other gastrointestinal disorders (16 sources) Dysphagia; Translations: [Dysphagia, unspecified] 01-30-2019 Episodic Other gastrointestinal disorders (16 sources) Diarrhea; Translations: [Diarrhea, unspecified] 01-30-2019 Episodic [...] abdomen] Onset: 5 Episodic Other gastrointestinal disorders (5 sources) Constipation alternates with diarrhea; Translations: [Other specified symptoms and signs involving the digestive system and abdomen] 04-15-2024 Episodic Other lower respiratory disease (3 sources) Dyspnea; Translations: [Shortness of breath] 10-21-2024 Episodic Other lower respiratory disease (3 sources) Shortness of breath; Translations: [Shortness of breath] Onset: 5 Episodic Other lower respiratory disease (1 source) Shortness of breath Onset: 5 Episodic Other nervous system disorders (20 sources) [...] (pediatric)] Onset: 4 Chronic Residual codes; unclassified (1 source) Primary central sleep apnea; 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] Onset: 4 Chronic Residual codes; unclassified (20 sources) Obstructive sleep apnea syndrome; Translations: [Obstructive sleep apnea (adult) (pediatric)] Onset: 4 10-04-2023 Chronic Residual codes; unclassified (20 sources) Hypersomnia; Translations: [Hypersomnia, unspecified] Onset: 4 10-04-2023 Chronic Residual codes; unclassified (2 sources) Central sleep apnea syndrome; 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] 12-13-2023 Chronic Residual codes; unclassified (1 source) Sleep apnea Onset: 4 Chronic Residual codes; unclassified (1 source) Other specified postprocedural states; Translations: [Other postprocedural status] 07-24-2023 Episodic Residual codes; unclassified (20 sources) History of arthroscopic procedure on shoulder; Translations: [Other specified postprocedural states] 05-09-2024 Episodic Screening and history of mental health and substance abuse codes (6 sources) Tobacco use and exposure - finding; [...] fatigue] Onset: 11-19-2018 12-04-2022 Episodic Mood disorders (17 sources) Mood disorders Onset: 06-29-2020 06-29-2020 Nausea and vomiting (1 source) Vomiting, unspecified; Translations: [Vomiting, unspecified] Onset: 08-22-2023 Episodic Other aftercare (20 sources) Long-term current use of drug therapy; Translations: [Other group home (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 therapy] Onset: 08-29-2023 08-29-2023 Episodic Other aftercare (2 sources) Patient encounter status; 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] Onset: 08-29-2023 08-29-2023 Episodic [...] the nervous system] Onset: 10-09-2023 10-09-2023 Episodic Spondylosis; intervertebral disc disorders; other back problems (20 sources) Lumbar radiculopathy; Translations: [Radiculopathy, lumbar region] Onset: 10-09-2023 10-09-2023 Episodic Substance-related disorders (20 sources) Cigarette smoker ; Translations: [Nicotine dependence, cigarettes, uncomplicated] Onset: 12-04-2022 Resolved: 06-07-2023 10-06-2019 Chronic Results Test Name Value Interpretation Reference Range Facility XR CHEST 2 VWSon 10-27-2024 XR CHEST 2 VWS XR CHEST 2 VWS CHEST 2 VIEWS HISTORY: Shortness of breath COMPARISON: 05/21/2019 FINDINGS: No focal airspace disease, pulmonary edema, pleural effusions, or pneumothorax. Normal cardiomediastinal silhouette. IMPRESSION: No acute cardiopulmonary disease. Finalized by Abelardo Andres MD on 10/27/2024 10:24 AM Normal [facility] HbA1c (Bld) [Mass fraction]o n 07-31-2024 Interpretation and review of laboratory results Abnormal [facility] Laboratory - Hematology and Cell countson 07-31-2024 HbA1c (Bld) [Mass fraction] 9.4 % [facility] X-ray reportOrdered By: Tico Mckeon on 07-30-2024 Study report [place] [id number] XRay Report Signed Patient: Milad Seymour MR#: [id number] : 1955 Acct:[id number] Age/Sex: 68 / M ADM Date: 5 Loc: XD Room: Type: [facility] Attending Dr: Rich Alvares APRN Copies to: Rich Alvares APRN~ Ordering Provider: [...] Osvaldo Mckeon M.D.07/30/2024 11:41 PM Dictation Location: [place] [address] Transcribed By: [facility] 07/30/24 2341 Dictated By: Osvaldo Mckeon MD 07/30/24 2338 Signed By: 07/30/24 234 [facility] Work Phone: XR KUBon 07-30-2024 XR KUB [facility] Main [address] [address] XRay Report Signed Patient: Milad Seymour MR#: [id number] : 1955 Acct:[id number] Age/Sex: 68 / M ADM Date: 07/30/24 Loc: XD Room: Type: [facility] Attending Dr: Rich Alvares APRN Copies to: Rich Alvares APRN Ordering Provider: [...] Osvaldo Mckeon M.D.07/30/2024 11:41 PM Dictation Location: [place] [address] Transcribed By: [facility] 07/30/24 2341 Dictated By: Osvaldo Mckeon MD 07/30/24 2338 Signed By: 07/30/24 2341 Normal [facility] XR Foot - left 3 [facility] Result: 3 vi ews left foot: Weight-bearing: DP, oblique, lateral: 05/29/2024: Unremarkable for fracture or stress fracture changes. Unremarkable for acute osseous or joint pathology. Incidental findings include os peroneum within the cuboid groove; enthesophyte formation at the 5th metatarsal styloid. [facility] Radiology Study observation (narrative) [facility] HbA1c (Bld) [Mass fraction]o n 04-29-2024 Interpretation and review of laboratory results Normal [facility] Laboratory - Hematology and Cell countson 04-29-2024 HbA1c (Bld) [Mass fraction] 7.9 % [facility] ALL CBC WITH AUTO DIFFon BASOPHILS ABSOLUTE AUTO 0.1 [facility] Basophils/100 WBC (Bld) 0.6 % 0.2 - 2.0 % [facility] Eosinophils/100 WBC (Bld) 1.8 % 0.9 - 7.0 % [facility] Erythrocyte distribution width (RBC) [Ratio] 12.8 % 11.0 - 15.0 % [facility] Hematocrit (Bld) [Volume fraction] 40.7 % Low 42.0 - 54.0 % [facility] Hemoglobin (Bld) [Mass/Vol] 13.6 g/dL Low 14.0 - 18.0 g/dL [facility] IMMATURE GRANULOCYTES ABS AUTO 0.1 High [facility] Immature granulocytes/100 WBC (Bld) 1.2 % High 0.0 - 0.5 % [facility] Interpretation and review of laboratory results Abnormal [facility] LYMPHOCYTES ABSOLUTE AUTO 2 [facility] Lymphocytes/100 WBC (Bld) 24.2 % 20.5 - 60.0 % [facility] MCH (RBC) [Entitic mass] 30.6 pg 25.9 - 34.0 pg [facility] MCHC (RBC) [Mass/Vol] 33.4 g/dL 29.9 - 35.2 g/dL [facility] MCV (RBC) [Entitic vol] 91.7 fL 80.0 - 94.0 fL [facility] MONOCYTES ABSOLUTE AUTO 0.5 [facility] Monocytes/100 WBC (Bld) 6.3 % 1.7 - 12.0 % [facility] NEUTROPHILS ABSOLUTE AUTO 5.4 [facility] Neutrophils/100 WBC (Bld) 65.9 % 43.0 - 75.0 % [facility] Platelet mean volume (Bld) [Entitic vol] 9 fL Low 9.5 - 13.5 fL [facility] TBH EO # 0.2 [facility] TB PLT 143 Low [facility] RBC 4.44 Low [facility] WBC 8.2 [facility] BASIC METABOLIC PANLon 03-18 Anion gap [Moles/Vol] 9 mmol/L Normal 5-15 [facility] Comment on above: Performed By: #### P INR, CBCA, BMP #### [facility] ([id number]) [address], [address] [place] [address] Calcium [Mass/Vol] 9.7 mg/dL Normal 8.5-10.5 [facility] Comment on above: Performed By: #### P INR, CBCA, BMP #### [facility] ([id number]) [address], [address] [place] [address] Chloride [Moles/Vol] 99 mmol/L Normal 98-109 [facility] Comment on above: Performed By: #### P INR, CBCA, BMP #### [facility] ([id number]) [address], [address] [place] [address] CO2 [Moles/Vol] 23 mmol/L Normal 22-32 [facility] Comment on above: Performed By: #### P INR, CBCA, BMP #### [facility] ([id number]) [address] [address] [place] [address] Creatinine [Mass/Vol] 1.60 mg/dL High 0.60-1.30 [facility] Comment on above: Result Comment: METH OD TRACEABLE TO IDMS STANDARD Performed By: #### P INR, CBCA, BMP #### [facility] ([id number]) [address] [address] [place] [address] GFR/1.73 sq M.predicted among non-blacks MDRD (S/P/Bld) [Vol rate/Area] 47 mL/min/{1.73_m2} Low >59 [facility] Comment on above: Result Comment: Reported eGFR is based on the CKD-EPI 2020 equation that does not use a race coefficient. Performed By: #### P INR, CBCA, BMP #### [facility] ([id number]) [address] [address] [place] [address] Glucose [Mass/Vol] 210 mg/dL High 65-99 [facility] Comment on above: Performed By: #### P INR, CBCA, BMP #### [facility] ([id number]) [address] [address] [place] [address] Potassium [Moles/Vol] 5.9 mmol/L High 3.5-5.0 [facility] Comment on above: Performed By: #### P INR, CBCA, BMP #### [facility] ([id number]) [address], [address] [place] [address] Sodium [Moles/Vol] 131 mmol/L Low 134-146 [facility] Comment on above: Performed By: #### P INR, CBCA, BMP #### [facility] ([id number]) [address], [email or web address] [address] [place] [address] Urea nitrogen [Mass/Vol] 55 mg/dL High 5-27 [facility] Comment on above: Performed By: #### P INR, CBCA, BMP #### [facility] ([id number]) [address], [address] [place] [address] CBC AND AUTO DIFFon 03-18-20 24 ABSOLUTE BASOPHIL 0.1 X10E9/L Normal 0.0-0.2 [facility] Comment on above: Performed By: #### P INR, CBCA, BMP #### [facility] ([id number]) [address] [place] [address] ABSOLUTE NEUTROPHIL 10.1 X10E9/L High 1.5-6.6 [facility] Comment on above: Performed By: #### P INR, CBCA, BMP #### [facility] ([id number]) [address], [address] [place] [address] Basophils/100 WBC (Bld) 0.4 % Normal [facility] Comment on above: Performed By: #### P INR, CBCA, BMP #### [facility] ([id number]) [address], [address] [place] [address] Eosinophils (Bld) [#/Vol] 0.1 10*3/uL Normal 0.0-0.4 [facility] Comment on above: Performed By: #### P INR, CBCA, BMP #### [facility] ([id number]) [address], [address] [place] [address] Eosinophils/100 WBC (Bld) 0.5 % Normal [facility] Comment on above: Performed By: #### P INR, CBCA, BMP #### [facility] ([id number]) [address] [address] [place] [address] Erythrocyte distribution width (RBC) [Ratio] 14.1 % Normal 11.5-15.0 [facility] Comment on above: Performed By: #### P INR, CBCA, BMP #### [facility] ([id number]) [address] [address] [place] [address] Hematocrit (Bld) [Volume fraction] 42.0 % Normal 39-49 [facility] Comment on above: Performed By: #### P INR, CBCA, BMP #### [facility] ([id number]) [address] [address] [place] [address] Hemoglobin (Bld) [Mass/Vol] 14.3 g/dL Normal 13.0-17.0 [facility] Comment on above: Performed By: #### P INR, CBCA, BMP #### [facility] ([id number]) [address] [address] [place] [address] Lymphocytes (Bld) [#/Vol] 1.8 10*3/uL Normal 1.0-3.5 [facility] Comment on above: Performed By: #### P INR, CBCA, BMP #### [facility] ([id number]) [address] [address] [place] [address] Lymphocytes/100 WBC (Bld) 14.1 % Normal [facility] Comment on above: Performed By: #### P INR, CBCA, BMP #### [facility] ([id number]) [address] [address] [place] [address] MCH (RBC) [Entitic mass] 31.7 pg Normal 27-34 [facility] Comment on above: Performed By: #### P INR, CBCA, BMP #### [facility] ([id number]) [address], [address] [place] [address] MCHC (RBC) [Mass/Vol] 34.0 g/dL Normal 32-36 [facility] Comment on above: Performed By: #### P INR, CBCA, BMP #### [facility] ([id number]) [address], [address] [place] [address] MCV (RBC) [Entitic vol] 93 fL Normal 80-100 [facility] Comment on above: Performed By: #### P INR, CBCA, BMP #### [facility] ([id number]) [address], [address] [place] [address] Monocytes (Bld) [#/Vol] 0.5 10*3/uL Normal 0-0.9 [facility] Comment on above: Performed By: #### P INR, CBCA, BMP #### [facility] ([id number]) [address], [address] [place] [address] Monocytes/100 WBC (Bld) 4.1 % Normal [facility] Comment on above: Performed By: #### P INR, CBCA, BMP #### [facility] ([id number]) [address], [address] [place] [address] Neutrophils/100 WBC (Bld) 80.9 % Normal [facility] Comment on above: Performed By: #### P INR, CBCA, BMP #### [facility] ([id number]) [address], [address] [place] [address] Platelet mean volume (Bld) [Entitic vol] 7.4 fL Normal 7-12 [facility] Comment on above: Performed By: #### P INR, CBCA, BMP #### [facility] ([id number]) [address], [address] [place] [address] Platelets (Bld) [#/Vol] 171 10*3/uL Normal 150-450 [facility] Comment on above: Performed By: #### P INR, CBCA, BMP #### [facility] ([id number]) [address], [address] [place] [address] RBC COUNT 4.51 X10E12/L Normal 4.10-5.70 [facility] Comment on above: Performed By: #### P INR, CBCA, BMP #### [facility] ([id number]) [address], [address] [place] [address] WBC (Bld) [#/Vol] 12.5 10*3/uL High 4.0-11.0 [facility] Comment on above: Performed By: #### P INR, CBCA, BMP #### [facility] ([id number]) [address], [address] [place] [address] CBC W Auto Differential pane l (Bld)on 03-18-2024 ABSOLUTE BASOPHIL 0.1 [facility] Comment on above: PERFORMED AT [facility] [address],[place] [address] Basophils/100 WBC (Bld) 0.4 % [facility] Eosinophils (Bld) [#/Vol] 0.1 10*3/uL [facility] Eosinophils/100 WBC (Bld) 0.5 % [facility] Erythrocyte distribution width (RBC) [Ratio] 14.1 % 11.5 - 15.0 % [facility] Hematocrit (Bld) [Volume fraction] 42.0 % 39 - 49 % [facility] Hemoglobin (Bld) [Mass/Vol] 14.3 g/dL 13.0 - 17.0 g/dL [facility] Interpretation and review of laboratory results Abnormal [facility] Lymphocytes (Bld) [#/Vol] 1.8 10*3/uL [facility] Lymphocytes/100 WBC (Bld) 14.1 % [facility] MCH (RBC) [Entitic mass] 31.7 pg 27 - 34 pg [facility] MCHC (RBC) [Mass/Vol] 34.0 g/dL 32 - 36 g/dL [facility] MCV (RBC) [Entitic vol] 93 fL 80 - 100 fL [facility] Monocytes (Bld) [#/Vol] 0.5 10*3/uL [facility] Monocytes/100 WBC (Bld) 4.1 % [facility] Neutrophils (Bld) [#/Vol] 10.1 10*3/uL High [facility] Neutrophils/100 WBC (Bld) 80.9 % [facility] Platelet mean volume (Bld) [Entitic vol] 7.4 fL 7 - 12 fL [facility] Platelets (Bld) [#/Vol] 171 10*3/uL [facility] RBC (Bld) [#/Vol] 4.51 10*6/uL [facility] WBC corrected for nucl RBC Auto (Bld) [#/Vol] 12.5 High [facility] PROTIME AND INRon 03-18-2024 INR Coag (PPP) [Relative time] 1.0 {INR} Normal 0.8-1.1 [facility] Comment on above: Performed By: #### P INR, CBCA, BMP #### [facility] ([id number]) [address] [facility] [place] [address] PT Coag (PPP) [Time] 11.7 s Normal 9.8-13.2 [facility] Comment on above: Performed By: #### P INR, CBCA, BMP #### [facility] ([id number]) [address] [facility] [facility], [address] [place] [address] Ambulatory Visit Summaryon 0 02-04-2024 Ambulatory Visit [...] Cap) fluticasone nasal (fluticasone 0.05 mg/inh Nasal [place]) insulin lispro (Insulin Lispro KwikPen 100 units/mL [...] Alberts When: Where: [facility] [address] , [place] [address] [phone] Medications What How Much When Instructions Unchanged aspirin (aspirin 81 mg Oral EC Tab) By Mouth Every day Contact prescribing physician if questions or concerns Unchanged celecoxib By Mouth Contact prescribing physician if questions or concerns Unchanged fluoxetine (FLUoxetine 20 mg Cap) 1 Capsules By Mouth Contact prescribing physician if questions or concerns Unchanged fluticasone nasal (fluticasone 0.05 mg/ inh Nasal [place]) Nasal Inhalation Every day Contact prescribing physician [...] with pro (more content not included)... Normal [facility] Urology Office/Clinic Noteon 02-04-2024 Urology Office/Clinic [...] x2 and one suspicious. TRUS/bx 09/23/19 - [place] 6 (3+3) x3, 26% involved with DOLORES [...] URL [facility] [address], [place] [address] [phone] Additional Instructions: 1 yr w/ PSA Patient Education Prostate Cancer Screening I, Johana Reeves, personally scribed for Dr. Petersen on 02/04/2024 [...] 1 cap(s), Oral fluticasone 0.05 mg/inh Nasal [place], Nasal, Daily Ilumya 100 mg/mL subcutaneous solution, [...] Recorded SARS-CoV- (more content not included)... Normal [facility] Comment on above: Result Comment: Elec tronically Signed By: Peterson PETERSEN MD\.br\Date and Time Signed: 02/04/24 12:52 EDT\.br\Electronically Co-Signed By: Johana Reeves\.br\Date and Time Co-Signed: 02/04/24 12:50 EDT NM gastric emptying studyon 08-22-2023 NM gastric emptying study [facility] [place] [address] [place] [address] Nuclear Medicine Report Signed Patient: Milad Seymour MR#: [id number] : 1955 Acct:[id number] Age/Sex: 67 / M ADM Date: 08/22/23 Loc: [place] Room: Type: [facility] Attending Dr: Kike Bernal MD Copies [...] Grimes Jr., D.O.08/22/2023 12:21 PM Dictation Location: [place] [address] Transcribed By: [facility] 08/22/23 1221 Dictated By: Shaheen Grimes Jr, DO 08/22/23 1215 Signed By: 08/22/23 1221 Normal [facility] Glucose Poct Glucometerson 0 08-20-2023 Glucose [Mass/Vol] 182 mg/dL Normal [facility] Comment on above: Result Comment: [facility] [place][note 2] Glucose Reference Range is dependent on time and content of last meal. Glucose of more than 200 mg/dL in a nonstressed, ambulatory subject supports the diagnosis of Diabetes Mellitus. PERFORMED BY: [place] [id number] PATHOLOGIST [employer] JEANNINE VAZQUEZ M.D. Performed By: #### G LULS #### Point of Care testing , Glucose [Mass/Vol] 227 mg/dL Normal [facility] Comment on above: Result Comment: [facility] [place][note 2] Glucose Reference Range is dependent on time and content of last meal. Glucose of more than 200 mg/dL in a nonstressed, ambulatory subject supports the diagnosis of Diabetes Mellitus. PERFORMED BY: [address] [address] PATHOLOGIST [employer]PER[employer] JEANNINE VAZQUEZ M.D. Performed By: #### G LULS #### Point of Care testing , XR pre/post mri xrayon 08-19 XR pre/post mri xray [facility] [place] [id number] MRI Report Signed Patient: Milad Seymour MR#: [id number] : 1955 Acct:[id number] Age/Sex: 67 / M ADM Date: 08/20/23 Loc: [place] Room: Type: [facility] Attending Dr: Dank Campo MD Copies to: Dank Campo MD Ordering Provider: Dank Campo MD Date of Service: 08/20/23 MR/MR lumbar spine wo con: [id number] ([id number]) XR/XR pre/post mri xray: PRE LUMBAR MRI [...] Tom Chanel M.D.08/20/2023 1:02 PM Dictation Location: [place] [address] Transcribed By: [facility] 08/20/23 1302 Dictated By: Tom Chanel DO 08/20/23 1250 Signed By: 08/20/23 1302 Normal [facility] HbA1c (Bld) [Mass fraction]o n 07-30-2023 Interpretation and review of laboratory results Abnormal [facility] Robert Applebaum MD Laboratory - Hematology and Cell countson 07-30-2023 HbA1c (Bld) [Mass fraction] 8.9 % [facility] Glucose Glucometer (BldC) [M ass/Vol]Ordered By: Kike Bernal on 04-27-2023 Glucose [Mass/Vol] 189 mg/dL [facility] Comment on above: Random Glucose Refer ence Range is dependent on time and content of last meal. Glucose of more than 200 mg/dL in a nonstressed, ambulatory subject supports the diagnosis of Diabetes Mellitus. No Panel InformationOrdered By: Kike Bernal on 04-27-2023 Bedside Glucose Comment Glu2: cleaned meter [facility] Patient Educationon 02-13-20 Patient Education Oncology Prostate [...] under a microscope. This is called the [place] score and the total score can range from 6?10, indicating how likely it is that the cancer will spread (metastasize) to other parts of the body. The higher the score, the greater the likelihood that the cancer will spread. ? [place] 6 or lower: This indicates that the [...] external be (more content not included)... Normal [facility] Reminderson 02-12-2023 Reminders - From: Johana Reeves To: NOREEN Petersen; Sent: 02/12/2023 17:56:32 EDT Show up: 01/13/2024 17:56:00 EDT Subject: PSA prior to appt Reminder Message Please Remember to:_have pt get PSA done prior to appt in 1 year. Normal [facility] Urology Office/Clinic Noteon 02-12-2023 Urology Office/Clinic [...] [facility] [address], [place] [phone] Additional Instructions: 1 yr w/ PSA Patient [...] TID celecoxib, Oral fluticasone 0.05 mg/inh Nasal [place], Nasal, Daily Insulin Lispro KwikPen 100 units/mL [...] used for this result was chemiluminescence using [employer] Access Hy[employer] PSA reagent. PSA Total 0.5 ng/mL 11/28/2022 11:31 EDT The concentration of P (more content not included)... Normal [facility] Comment on above: Result Comment: Elec tronically Signed By: Peterson PETERSEN MD\.br\Date and Time Signed: 02/12/23 10:15 EDT\.br\Electronically Co-Signed By: Johana Reeves.french\Date and Time Co-Signed: 02/12/23 10:14 EDT Ambulatory Visit Summaryon 0 02-06-2023 Ambulatory Visit Summary MILAD SEYMOUR :1955 Visit Date:02/06/2023 Ambulatory Visit Instructions Your Diagnosis Prostate cancer Your Care Team Attending Physician - NCIOLA RAYMUNDO, DEJUAN Primary Care Physician - DANK CAMPO MD This Is Your Medications List aspirin (aspirin 81 mg Oral EC Tab) baclofen celecoxib fluticasone nasal (fluticasone 0.05 mg/inh Nasal [place]) lansoprazole lisinopril metformin metoprolol (metoprolol 25 mg ER Tab) simvastatin Procedures Performed Laparoscopic cholecystectomy (03/2021), Radiation (01/16/2020), Transrectal biopsy of prostate using ultrasound (US) guidance (09/23/2019), Transrectal biopsy of prostate using ultrasound (US) guidance (09/03/2018), Appendectomy, Colonoscopy, Tonsillectomy. What to do next Scheduled Follow-Up Appointments Sunday 9:15 AM EDT With: NICOLA RAYMUNDO, Peterson Owens Where: [facility] CHEMISTRYOrdered By: SYSTEM SYSTEM on 02-06-2023 Prostate specific Ag [Mass/Vol] 0.4 ng/mL Normal 0.1 - 3.5 ng/mL [facility] Remisol PSA Totalon 02-06-2023 Prostate specific Ag [Mass/Vol] 0.4 ng/mL Normal 0.1-3.5 [facility] Comment on above: Result Comment: The concentration of PSA determined by different manufacturers can vary due to differences in assay methods and reagent specificity. Values obtained from different assay methods cannot be used interchangeably. The methodology used for this result was chemiluminescence using [employer] Access Hybr[employer]ch PSA reagent. Performed By: #### [id number] #### [facility] [address] [place] [address] PANCREATIC ELASTASE FECALon 09-24-2022 Pancreatic Elastase, Fecal 467 ug Elast./g Normal >200 [facility] Comment on above: Result Comment: Nicolle re Pancreatic Insufficiency: <100 Moderate Pancreatic Insufficiency: 100 - 200 Normal: >200 Performed By: #### C PEPT #### [facility] [address] [place] [address] Dr. Stewart De La Cruz POTASSIUM, FECALon 3 Potassium, Stool 57 mmol/L Normal [facility] Comment on above: Result Comment: INTE RPRETIVE INFORMATION: Fecal Potassium A reference interval has not been established for fecal specimens. This test was developed and its performance characteristics determined by [employer]. It has not been cleared or approved by the [place] Food and Drug Administration. This test was performed in a CLIA certified laboratory and is intended for clinical purposes. Performed By: #### C PEPT #### [facility] [address] [place] [address] Dr. Stewart De La Cruz SODIUM, FECALon 09-17-2022 Sodium, Stool 65 mmol/L Normal [facility] Comment on above: Result Comment: INTE RPRETIVE INFORMATION: Fecal Sodium A reference interval has not been established for fecal specimens. This test was developed and its performance characteristics determined by [employer]. It has not been cleared or approved by the [place] Food and Drug Administration. This test was performed in a CLIA certified laboratory and is intended for clinical purposes. Performed By: #### F ECALN #### [facility] [address] [place] [address] Dr. Stewart De La Cruz CALPROTECTIN, FECALon 2022 Calprotectin, Fecal 43 ug/g Normal 0-120 [facility] Comment on above: Result Comment: Conc entration Interpretation Follow-Up <16 - 50 ug/g Normal None >50 -120 ug/g Borderline Re-evaluate in 4-6 weeks >120 ug/g Abnormal Repeat as clinically indicated Performed By: #### C PEPT #### [facility] [address] [place] [address] Dr. Stewart De La Cruz C-PEPTIDE, SERUMon 3 C-Peptide, Serum 6.5 ng/mL Critically high 1.1-4.4 [facility] Comment on above: Result Comment: C-Pe ptide reference interval is for fasting patients. Performed By: #### C PEPT #### [facility] [address] [place] [address] Dr. Stewart De La Cruz HIV 1 AND 2 WITH REFLEXon HIV Screen 4th Generation [employer] Non-Reactive Normal Non Reactive [facility] Comment on above: Result Comment: HIV Negative HIV-1/HIV-2 antibodies and HIV-1 p24 antigen were NOT detected. There is no laboratory evidence of HIV infection. Performed By: #### C PEPT #### [facility] [address] [place] [place] [address] Dr. Stewart De La Cruz INSULINon 09-13-2022 Insulin 13.9 uIU/mL Normal 2.6-24.9 [facility] Comment on above: Performed By: #### C PEPT #### [facility] [address] [place] [address] Dr. Stewart De La Cruz POTASSIUM, FECALon 3 Potassium, Stool QNSMT Normal [facility] Comment on above: Result Comment: Test not performed. One specimen was submitted with requests for multiple tests. The requested testing requires a separate specimen for each test requested. contacted Keesha at your facility on 09-13-2022 Performed By: #### C PEPT #### [facility] [address] [place] [address] Dr. Stewart De La Cruz SODIUM, FECALon 09-13-2022 Sodium, Stool QNSMT Normal [facility] Comment on above: Result Comment: Test not performed. One specimen was submitted with requests for multiple tests. The requested testing requires a separate specimen for each test requested. contacted Keesha at your facility on 09-13-2022 Performed By: #### F ECALN #### [facility] [address] [place] [address] Dr. Stewart De La Cruz CBC AUTO DIFFon 09-12-2022 BASO # 0.1 103/ul Normal 0.0-0.1 [facility] Comment on above: Performed By: #### C PEPT #### [facility] [address] [place] [place] [address] Dr. Stewart De La Cruz Basophils/100 WBC (Bld) 1.2 % Normal 0.2-2.0 [facility] Comment on above: Performed By: #### C PEPT #### [facility] [address] [place] [place] [address] Dr. tSewart De La Cruz EO # 0.3 103/ul Normal 0.0-0.7 [facility] Comment on above: Performed By: #### C PEPT #### [facility] [address] [place] [place] [address] Dr. Stewart De La Cruz Eosinophils/100 WBC (Bld) 4.5 % Normal 0.9-7.0 [facility] Comment on above: Performed By: #### C PEPT #### [facility] [address] [place] [place] [address] Dr. Stewart De La Cruz Erythrocyte distribution width (RBC) [Ratio] 12.9 % Normal 11.0-15.0 [facility] Comment on above: Performed By: #### C PEPT #### [facility] [address] [place] [place] [address] Dr. Stewart De La Cruz Hematocrit (Bld) [Volume fraction] 44.6 % Normal 42.0-54.0 [facility] Comment on above: Performed By: #### C PEPT #### [facility] [address] [place] [address] Dr. Stewart De La Cruz Hemoglobin (Bld) [Mass/Vol] 14.9 g/dL Normal 14.0-18.0 [facility] Comment on above: Performed By: #### C PEPT #### [facility] [address] [place] [address] Dr. Stewart De La Cruz IG # 0.03 10e3/ul Normal 0.00-0.03 [facility] Comment on above: Performed By: #### C PEPT #### [facility] [address] [place] [address] Dr. Stewart De La Cruz IG % 0.5 % Normal 0.0-0.5 [facility] Comment on above: Performed By: #### C PEPT #### [facility] [address] [place] [address] Dr. Stewart De La Cruz LYMPH # 1.1 103/ul Critically low 1.2-3.8 [facility] Comment on above: Performed By: #### C PEPT #### [facility] [address] [place] [address] Dr. Stewart De La Cruz Lymphocytes/100 WBC (Bld) 18.5 % Critically low 20.5-60.0 [facility] Comment on above: Performed By: #### C PEPT #### [facility] [address] [place] [address] Dr. Stewart De La Cruz MANUAL DIFF REQ NO Normal [facility] Comment on above: Performed By: #### C PEPT #### [facility] [address] [place] [address] Dr. Stewart De La Cruz MCH (RBC) [Entitic mass] 29.2 pg Normal 25.9-34.0 [facility] Comment on above: Performed By: #### C PEPT #### [facility] [address] [place] [address] Dr. Stewart De La Cruz MCHC (RBC) [Mass/Vol] 33.4 g/dL Normal 29.9-35.2 [facility] Comment on above: Performed By: #### C PEPT #### [facility] [address] [place] [address] Dr. Stewart De La Cruz MCV (RBC) [Entitic vol] 87.5 fL Normal 80.0-94.0 [facility] Comment on above: Performed By: #### C PEPT #### [facility] [address] [place] [address] Dr. Stewart De La Cruz MONO # 0.4 103/ul Normal 0.3-0.8 [facility] Comment on above: Performed By: #### C PEPT #### [facility] [address] [place] [address] Dr. Stewart De La Cruz Monocytes/100 WBC (Bld) 6.8 % Normal 1.7-12.0 [facility] Comment on above: Performed By: #### C PEPT #### [facility] [address] [place] [address] Dr. Stewart De La Cruz NEUT # 4.2 103/ul Normal 1.4-6.5 [facility] Comment on above: Performed By: #### C PEPT #### [facility] [address] [place] [address] Dr. Stewart De La Cruz Neutrophils/100 WBC (Bld) 68.5 % Normal 43.0-75.0 [facility] Comment on above: Performed By: #### C PEPT #### [facility] [address] [address] [address] Stewart De La Cruz Platelet mean volume (Bld) [Entitic vol] 9.8 fL Normal 9.5-13.5 [facility] Comment on above: Performed By: #### C PEPT #### [facility] [address] [place] [address] Dr. Stewart De La Cruz PLT 133 103/ul Critically low 150-450 [facility] Comment on above: Performed By: #### C PEPT #### [facility] [address] [place] [address] Dr. Stewart De La Cruz RBC 5.10 106/ul Normal 4.70-6.10 [facility] Comment on above: Performed By: #### C PEPT #### [facility] [address] [place] [address] Dr. Stewart De La Cruz WBC 6.1 103/ul Normal 4.0-11.0 [facility] Comment on above: Performed By: #### C PEPT #### [facility] [address] [place] [address] Dr. Stewart De La Cruz CRPon 09-12-2022 CRP [Mass/Vol] mg/L Normal <=1.0 [facility] Comment on above: Performed By: #### C RP #### [facility] [address] [place] [address] Dr. Stewart De La Cruz GLYCOHEMOGLOBIN A1Con 2022 ADA RECOMMENDATION SEE BELOW Normal [facility] Comment on above: Result Comment: ADA RECOMMENDED LIMIT 4.0 - 6.0 ADA THERAPEUTIC TARGET < 7.0 ACTION SUGGESTED > 7.0 Performed By: #### A 1C #### [facility] [address] [place] [place] [address] Dr. Stewart De La Cruz Glucose [Mass/Vol] 278 mg/dL Normal [facility] Comment on above: Performed By: #### A 1C #### [facility] [address] [place] [address] Dr. Stewart De La Cruz HbA1c (Bld) [Mass fraction] 11.3 % Critically high 4.5-6.2 [facility] Comment on above: Performed By: #### A 1C #### [facility] [address] [address] [address] Stewart De La Cruz PROF CHEM 8 (BAS METB)on Anion gap [Moles/Vol] 16.9 mmol/L Normal [facility] Comment on above: Performed By: #### C PEPT #### [facility] [address] [place] [address] Dr. Stewart De La Cruz Calcium [Mass/Vol] 9.3 mg/dL Normal 8.5-10.1 [facility] Comment on above: Performed By: #### C PEPT #### [facility] [address] [place] [place] [address] Dr. Stewart De La Cruz Chloride [Moles/Vol] 103 mmol/L Normal 98-107 [facility] Comment on above: Performed By: #### C PEPT #### [facility] [address] [place] [address] Dr. Stewart De La Cruz CO2 [Moles/Vol] 26.0 mmol/L Normal 21.0-32.0 [facility] Comment on above: Performed By: #### C PEPT #### [facility] [address] [place] [address] Dr. Stewart De La Cruz Creatinine [Mass/Vol] 1.43 mg/dL Critically high 0.70-1.30 [facility] Comment on above: Performed By: #### C PEPT #### [facility] [address] [place] [place] [address] Dr. Stewart De La Cruz EGFR-AF CYPRIOT 60 mL/min/1.73m2 Normal >=60 [facility] Comment on above: Performed By: #### C PEPT #### [facility] [address] [place] [place] [address] Dr. Stewart De La Cruz EGFR-NON AF CYPRIOT 49 mL/min/1.73m2 Critically low >=60 [facility] Comment on above: Performed By: #### C PEPT #### [facility] [address] [place] [place] [address] Dr. Stewart De La Cruz Glucose [Mass/Vol] 293 mg/dL Critically high 74-106 [facility] Comment on above: Performed By: #### C PEPT #### [facility] [address] [address] [address] Stewart De La Cruz Potassium [Moles/Vol] 4.9 mmol/L Normal 3.5-5.1 [facility] Comment on above: Performed By: #### C PEPT #### [facility] [address] [address] [address] Stewart De La Cruz Sodium [Moles/Vol] 141 mmol/L Normal 136-145 [facility] Comment on above: Performed By: #### C PEPT #### [facility] [address] [address] [address] Stewart De La Cruz Urea nitrogen [Mass/Vol] 32.0 mg/dL Critically high 7.0-18.0 [facility] Comment on above: Performed By: #### C PEPT #### [facility] [address] [address] [address] Stewart De La Cruz Urea nitrogen/Creatinine [Mass ratio] 22.4 mg/mg Normal [facility] Comment on above: Performed By: #### C PEPT #### [facility] [address] [address] [address] Stewart De La Cruz [facility] 17 mm/hr Normal <=20 [facility] Comment on above: Performed By: #### S EDR #### [facility] [address] [address] [address] Stewart De La Cruz RAD EGD - documentation only do not orderon 07-25-2022 RAD EGD - documentation only do not order [employer] Other Glucose Glucometer (BldC) [M ass/Vol]Ordered By: Kike Bernal on 07-24-2022 Glucose [Mass/Vol] 275 mg/dL [facility] Comment on above: Random Glucose Refer ence Range is dependent on time and content of last meal. Glucose of more than 200 mg/dL in a nonstressed, ambulatory subject supports the diagnosis of Diabetes Mellitus. GLYCOHEMOGLOBIN A1Con 2021 ADA RECOMMENDATION SEE BELOW Normal [facility] Comment on above: Result Comment: ADA RECOMMENDED LIMIT 4.0 - 6.0 ADA THERAPEUTIC TARGET < 7.0 ACTION SUGGESTED > 7.0 Performed By: #### A 1C #### [facility] [address] [address] [address] Stewart De La Cruz Glucose [Mass/Vol] 235 mg/dL Normal [facility] Comment on above: Performed By: #### A 1C #### [facility] [address] [address] [address] Stewart De La Cruz HbA1c (Bld) [Mass fraction] 9.8 % Critically high 4.5-6.2 [facility] Comment on above: Performed By: #### A 1C #### [facility] [address] [address] Dr. Stewart De La Cruz GLYCOHEMOGLOBIN A1Con 2021 ADA RECOMMENDATION SEE BELOW Normal [facility] Comment on above: Result Comment: ADA RECOMMENDED LIMIT 4.0 - 6.0 ADA THERAPEUTIC TARGET < 7.0 ACTION SUGGESTED > 7.0 Performed By: #### A 1C #### [facility] [address] [address] [address] Stewart De La Cruz Glucose [Mass/Vol] 197 mg/dL Normal [facility] Comment on above: Performed By: #### A 1C #### [facility] [address] [place] [address] Dr. Stewart De La Cruz HbA1c (Bld) [Mass fraction] 8.5 % Critically high 4.5-6.2 [facility] Comment on above: Performed By: #### A 1C #### [facility] [address] [place] [address] Dr. Stewart De La Cruz PSA, FREE AND TOTAL RATIOon 01-28-2022 % Free PSA 30.0 % Normal [facility] Comment on above: Result Comment: The [...] men. Performed By: #### P SAFREE #### [facility] [address] [address] Dr. Stewart De La Cruz Prostate specific Ag [Mass/Vol] 0.1 ng/mL Normal 0.0-4.0 [facility] Comment on above: Result Comment: Nina de luna ECLIA methodology. . According to the [employer], Serum PSA should decrease and [...] disease. Performed By: #### P SAFREE #### [facility] [address] [place] [address] Dr. Stewart De La Cruz PSA, Free 0.03 ng/mL Normal N/A [facility] Comment on above: Result Comment: Nina de luna ECLDENISE methodology. Performed By: #### P SAFREE #### [facility] [address] [place] [address] Dr. Stewart De La Cruz GLYCOHEMOGLOBIN A1Con 2021 ADA RECOMMENDATION SEE BELOW Normal [facility] Comment on above: Result Comment: ADA RECOMMENDED LIMIT 4.0 - 6.0 ADA THERAPEUTIC TARGET < 7.0 ACTION SUGGESTED > 7.0 Performed By: #### A 1C #### [facility] [address] [place] [address] Dr. Stewart De La Cruz Glucose [Mass/Vol] 192 mg/dL Normal [facility] Comment on above: Performed By: #### A 1C #### [facility] [address] [place] [address] Dr. Stewart De La Cruz HbA1c (Bld) [Mass fraction] 8.3 % Critically high 4.5-6.2 [facility] Comment on above: Performed By: #### A 1C #### [facility] [address] [place] [address] Dr. Stewart Cruz 02-01-2021 CNOV Office Visit (RADTSA ) -- MILAD SEYMOUR ([id number]) 1955 M Date Time Provider Department 02/01/21 [...] cc: Dank Campo MD (DrC) [address] [place] [address] Dr. Petersen Portions of the above note extracted and edited from previous visit as well as active information included in the EMR. Referring Provider: Fawad DIAZ [[id number]] Allergies As of Date: 02/01/2021 (No Known Allergies) Date Reviewed: 02/01/2021 Reviewed by: Tila Herrera LPN - Fully Assessed Reason for Visit: Prostate Cancer [590] Primary Visit Diagnosis:Malignant neoplasm of prostate (HCC) [C61] Order(s):PSA/PROSTSPECAG DIAG [SQPSA] Order #: [id number] FUTURE Prescriptions as of 02/03/2021 - aspirin, [...] magnesium) t (more content not included)... Normal [facility] PSA, Diagnosticon 01-25-2021 PSA, Diagnostic 0.29 ng/mL Normal 0.00-2.59 [facility] Comment on above: Result Comment: Tota l PSA test methodology used is the Electrochemiluminescence Immunoassay. Performed By: #### P SA #### [facility] [address] [place], [place] [address] OBSOLETEon 12-22-2020 OBSOLETE Refill (RADTSA) -- LIONMILAD Mulugeta ([id number]) 1955 M Date Time Provider Department 12/22/20 [...] Encounter Status:Closed by TILA HERRERA on 01/04/21 [facility] CNOVon 11-03-2020 CNOV Office Visit (RADTSA ) -- MILAD SEYMOUR ([id number]) 1955 M Date Time Provider Department 11/03/20 4:00 PM [facility] During your visit today, we recorded the following information about you: Referring Provider: Fawad DIAZ [[id number]] Allergies As of Date: 11/03/2020 (No Known [...] Status:Closed by TILA HERRERA on 11/03/20 Normal [facility] CNOV Office Visit (RADTSA ) -- MILAD SEYMOUR ([id number]) 1955 M Date Time Provider Department 11/03/20 [...] MD cc: Dank Campo MD ([facility]) [address] [place] [address] Dr. Petersen Referring Provider: Fawad DIAZ [[id number]] Allergies As of Date: 11/03/2020 (No Known Allergies) Date Reviewed: 11/03/2020 Reviewed by: Fawad Diaz MD - Fully Assessed Reason for Visit: Prostate Cancer [590] Primary Visit Diagnosis:Malignant neoplasm of prostate (HCC) [C61] Order(s):PSA/PROSTSPECAG DIAG [SQPSA] Order #: [id number] FUTURE Prescriptions as of 11/03/2020 Sig: TAMSULOSIN [...] 30 mg (more content not included)... Normal [facility] PSA, Diagnosticon 11-01-2020 PSA, Diagnostic 0.27 ng/mL Normal 0.00-2.59 [facility] Comment on above: Result Comment: Sandra manzo PSA test methodology used is the Electrochemiluminescence Immunoassay. Performed By: #### P SA #### [facility] [address] [id number] [facility] 10-29-2020 [facility] Telephone ([employer]) -- MILAD ESYMOUR ([id number]) 1955 M Date Time Provider Department 10/29/20 [...] since completing radiation therapy. Call transferred to [facility] to move up appointment. Dr. Diaz, 07/27/20 PSA 0.41 do you want another PSA drawn prior to follow up 11/03/20? Please advise. ION Milian MD 10/29/2020 1:59 PM Signed Repeat psa. Tila Herrera LPN 10/29/2020 2:21 PM Signed PSA order pending your approval. Patient notified and requested to come in on Sunday to have lab drawn at our office. Tila Herrear LPN Allergies As of Date: 10/29/2020 (No Known Allergies) Date Reviewed: 07/14/2020 Reviewed by: Joann Richardson - Fully Assessed Reason for Visit: Urinary Frequency [1086] Urinary Urgency [2827] Primary Visit Diagnosis:Malignant neoplasm of prostate (HCC) [C61] Order(s):PSA/PROSTSPECAG DIAG [SQPSA] Order #: [id number] FUTURE Prescriptions as of 10/29/2020 Sig: TAMSULOSIN [...] Encounter Status:Closed by TILA HERRERA on 10/29/20 [facility] [facility] -- MILAD SEYMOUR ([id number]) 1955 M Date Time Provider Department 10/08/20 HEATHER BARRIGA During your visit today, we recorded the following information about you: Allergies As of Date: 10/08/2020 (No Known Allergies) Date Reviewed: 07/14/2020 Reviewed by: Joann Richardson - Fully Assessed Reason for Visit: Lab Orders [1688] Primary Visit Diagnosis:Iron deficiency anemia due to chronic blood loss [D50.0] Order(s):CBC + DIFF (FOR REMOTE [facility] USE) [SQRCBCDF] Order #: [id number] FUTURE COMP METABOLIC PANEL [SQCMP] Order #: [id number] FUTURE Prescriptions as of 10/08/2020 Sig: TAMSULOSIN [...] Encounter Status:Closed by TASHA GOOD on 10/14/20 [facility] OBSOLETEon 09-20-2020 OBSOLETE Refill (RADTSA) -- MILAD SEYMOUR ([id number]) 1955 M Date Time Provider Department 09/20/20 [...] Status:Closed by TILA HERRERA on 10/14/20 Normal [facility] Vital Signs Date Time Vital Sign Value Performing Clinician Facility 12-23-2024 14:09-0400 Body height 175.26 cm Dank Campo MD Work Phone: [facility] 12-23-2024 14:09-0400 Body mass index (BMI) [Ratio] 37.6 kg/m2 Dank Campo MD Work Phone: [facility] 12-23-2024 14:09-0400 Body weight 115.66 kg Dank Campo MD Work Phone: [facility] 12-23-2024 14:09-0400 Diastolic blood pressure 67 mm[Hg] Dank Campo MD Work Phone: [facility] 12-23-2024 14:09-0400 Heart rate 83 /min Dank Campo MD Work Phone: [facility] 12-23-2024 14:090400 Systolic blood pressure 101 mm[Hg] Dank Campo MD Work Phone: [facility] 10-27-2024 10:30-0400 Body height 175.3 cm Hanna Butcher MD Work Phone: [facility] 10-27-2024 10:30-0400 Body mass index (BMI) [Ratio] 38.02 kg/m2 Hanna Butcher MD Work Phone: [facility] 10-27-2024 10:30-0400 Body weight 116.85 kg Hanna Butcher MD Work Phone: [facility] 10-27-2024 10:30-0400 Diastolic blood pressure 73 mm[Hg] Hanna Butcher MD Work Phone: [facility] 10-27-2024 10:30-0400 Heart rate 79 /min Hanna Butcher MD Work Phone: [facility] 10-27-2024 10:30-0400 SaO2% (BldA) [Mass fraction] 97 % Hanna Butcher MD Work Phone: [facility] 10-27-2024 10:30-0400 Systolic blood pressure 114 mm[Hg] Hanna Butcher MD Work Phone: [facility] 2024 15:05-0400 Body height 175.26 cm Dank Campo MD Work Phone: [facility] 2024 15:05-0400 Body mass index (BMI) [Ratio] 37.6 kg/m2 Dank Campo MD Work Phone: [facility] 2024 15:05-0400 Body weight 115.66 kg Dank Campo MD Work Phone: [facility] 07-31-2024 10:32-0500 Body height 177.8 cm Ashli Petznick DO Work Phone: [facility] 07-31-2024 10:32-0500 Body mass index (BMI) [Ratio] 37.02 kg/m2 Ashli Petznick DO Work Phone: [facility] 07-31-2024 10:32-0500 Body temperature 97.9 [degF] Ashli Petznick DO Work Phone: [facility] 07-31-2024 10:32-0500 Body weight 117.03 kg Ashli Petznick DO Work Phone: [facility] 07-31-2024 10:32-0500 Diastolic blood pressure 70 mm[Hg] Ashli Petznick DO Work Phone: [facility] 07-31-2024 10:32-0500 Heart rate 78 /min Ashli Petznick DO Work Phone: [facility] 07-31-2024 10:32-0500 SaO2% (BldA) [Mass fraction] 97 % Ashli Petznick DO Work Phone: [facility] 07-31-2024 10:32-0500 Systolic blood pressure 108 mm[Hg] Ashli Petznick DO Work Phone: [facility] 07-30-2024 14:11-0500 Body height 175.26 cm [facility] 07-30-2024 14:11-0500 Body mass index (BMI) [Ratio] 38.4 kg/m2 [facility] 07-30-2024 14:11-0500 Body weight 117.93 kg [facility] 05-29-2024 14:51-0500 Body height 177.8 cm Dexter Krishnamurthy DPM Work Phone: [facility] 05-29-2024 14:51-0500 Body mass index (BMI) [Ratio] 36.88 kg/m2 Dexter Yessy DPM Work Phone: [facility] 05-29-2024 14:51-0500 Body weight 116.57 kg Dexter Yessy DPM Work Phone: [facility] 05-28-2024 07:38-0500 Body height 177.8 cm Dank Campo MD Work Phone: [facility] 05-28-2024 07:38-0500 Body mass index (BMI) [Ratio] 36.88 kg/m2 Dank Campo MD Work Phone: [facility] 05-28-2024 07:38-0500 Body temperature 97.11 [degF] Dank Campo MD Work Phone: [facility] 05-28-2024 07:38-0500 Body weight 116.57 kg Dank Campo MD Work Phone: [facility] 05-28-2024 07:38-0500 Diastolic blood pressure 72 mm[Hg] Dank Campo MD Work Phone: [facility] 05-28-2024 07:38-0500 Heart rate 104 /min Dank Campo MD Work Phone: [facility] 05-28-2024 07:38-0500 Respiratory rate 18 /min Dank Campo MD Work Phone: [facility] 05-28-2024 07:38-0500 SaO2% (BldA) [Mass fraction] 97 % Dank Campo MD Work Phone: [facility] 05-28-2024 07:38-0500 Systolic blood pressure 136 mm[Hg] Dank Campo MD Work Phone: [facility] 04-29-2024 10:46-0500 Body height 177.8 cm Ashli Petznick DO Work Phone: [facility] 04-29-2024 10:46-0500 Body mass index (BMI) [Ratio] 35.61 kg/m2 Ashli Petznick DO Work Phone: [facility] 04-29-2024 10:46-0500 Body temperature 96.1 [degF] Ashli Petznick DO Work Phone: [facility] 04-29-2024 10:46-0500 Body weight 112.58 kg Ashli Petznick DO Work Phone: [facility] 04-29-2024 10:46-0500 Diastolic blood pressure 78 mm[Hg] Ashli Petznick DO Work Phone: [facility] 04-29-2024 10:46-0500 Heart rate 84 /min Ashli Petznick DO Work Phone: [facility] 04-29-2024 10:46-0500 SaO2% (BldA) [Mass fraction] 97 % Ashli Petznick DO Work Phone: [facility] 04-29-2024 10:46-0500 Systolic blood pressure 124 mm[Hg] Ashli Petznick DO Work Phone: [facility] 04-15-2024 09:08-0400 Body height 175.26 cm [facility] 04-15-2024 09:08-0400 Body mass index (BMI) [Ratio] 36.1 kg/m2 [facility] 04-15-2024 09:08-0400 Body weight 111.13 kg [facility] 04-08-2024 10:00-0400 Body height 177.8 cm Rebecca FREY Work Phone: [facility] 04-08-2024 10:00-0400 Body mass index (BMI) [Ratio] 35.73 kg/m2 Rebecca FREY Work Phone: [facility] 04-08-2024 10:00-0400 Body weight 112.95 kg Rebecca Dias PA Work Phone: [facility] 03-18-2024 08:28-0400 Body height 177.8 cm Rebecca Dias PA Work Phone: [facility] 03-18-2024 08:28-0400 Body mass index (BMI) [Ratio] 35.73 kg/m2 Rebecca Dias PA Work Phone: [facility] 03-18-2024 08:28-0400 Body weight 112.95 kg Rebecca Dias PA Work Phone: [facility] 03-17-2024 10:19-0400 Body height 175.26 cm [facility] 03-17-2024 10:19-0400 Body mass index (BMI) [Ratio] 37 kg/m2 [facility] 03-17-2024 10:19-0400 Body weight 114 kg [facility] 02-25-2024 10:29-0400 Body height 175.3 cm Hanna Butcher MD Work Phone: [facility] 02-25-2024 10:29-0400 Body mass index (BMI) [Ratio] 37.01 kg/m2 Hanna Butcher MD Work Phone: [facility] 02-25-2024 10:290400 Body weight 113.67 kg Hanna Butcher MD Work Phone: [facility] 02-25-2024 10:29-0400 Diastolic blood pressure 60 mm[Hg] Hanna Butcher MD Work Phone: [facility] 02-25-2024 10:29-0400 Heart rate 77 /min Hanna Butcher MD Work Phone: [facility] 02-25-2024 10:29-0400 SaO2% (BldA) [Mass fraction] 98 % Hanna Butcher MD Work Phone: [facility] 02-25-2024 10:29-0400 Systolic blood pressure 108 mm[Hg] Hanna Butcher MD Work Phone: [facility] 02-04-2024 11:45-0400 Diastolic blood pressure 74 mm[Hg] Peterson PETERSEN [facility] 02-04-2024 11:45-0400 Heart rate 66 /min Peterson PETERSEN [facility] 02-04-2024 11:45-0400 Respiratory rate 16 /min Peterson PETERSEN [facility] 02-04-2024 11:45-0400 Systolic blood pressure 116 mm[Hg] Peterson PETERSEN [facility] 12-13-2023 22:34-0400 Body height 175.3 cm Bph 3 [facility] 12-13-2023 22:34-0400 Body mass index (BMI) [Ratio] 36.77 kg/m2 Bph 3 [facility] 12-13-2023 22:34-0400 Body weight 112.95 kg Bph 3 [facility] 08-15-2023 13:35-0500 Diastolic blood pressure 60 mm[Hg] Gregoriamyah Valdiviagel PERLITE GRINDER-INTERNAL MEDICINE VETERINARY TECHNICIAN Work Phone: [facility] 08-15-2023 13:35-0500 Systolic blood pressure 107 mm[Hg] Gregoria Sheagel PERLITE GRINDER-INTERNAL MEDICINE VETERINARY TECHNICIAN Work Phone: [facility] 08-15-2023 13:33-0500 Body height 175.3 cm Gregoria Sheagel PERLITE GRINDER-INTERNAL MEDICINE VETERINARY TECHNICIAN Work Phone: [facility] 08-15-2023 13:33-0500 Body mass index (BMI) [Ratio] 36.77 kg/m2 Gregoria Sheagel PERLITE GRINDER-INTERNAL MEDICINE VETERINARY TECHNICIAN Work Phone: [facility] 08-15-2023 13:33-0500 Body weight 112.95 kg Gregoria Kregel PERLITE GRINDER-INTERNAL MEDICINE VETERINARY TECHNICIAN Work Phone: [facility] 08-15-2023 13:33-0500 Heart rate 81 /min Gregoria Ralph APRN-INTERNAL MEDICINE VETERINARY TECHNICIAN Work Phone: [facility] 08-15-2023 13:33-0500 SaO2% (BldA) [Mass fraction] 95 % Gregoria Ralph PERLITE GRINDER-INTERNAL MEDICINE VETERINARY TECHNICIAN Work Phone: [facility] 07-30-2023 11:16-0500 Body height 177.8 cm Ashli Petznick DO Work Phone: [facility] 07-30-2023 11:16-0500 Body mass index (BMI) [Ratio] 36.16 kg/m2 Ashli Petznick DO Work Phone: [facility] 07-30-2023 11:16-0500 Body temperature 98.01 [degF] Ashli Petznick DO Work Phone: [facility] 07-30-2023 11:16-0500 Body weight 114.31 kg Ashli Petznick DO Work Phone: [facility] 07-30-2023 11:16-0500 Diastolic blood pressure 62 mm[Hg] Ashli Petznick DO Work Phone: [facility] 07-30-2023 11:16-0500 Heart rate 66 /min Ashli Petznick DO Work Phone: [facility] 07-30-2023 11:16-0500 SaO2% (BldA) [Mass fraction] 97 % Ashli Petznick DO Work Phone: [facility] 07-30-2023 11:16-0500 Systolic blood pressure 116 mm[Hg] Ashli Petznick DO Work Phone: [facility] 07-17-2023 09:22-0500 Diastolic blood pressure 73 mm[Hg] MD Dank Campo Work Phone: [facility] 07-17-2023 09:22-0500 Heart rate 70 /min MD Dank Campo Work Phone: [facility] 07-17-2023 09:22-0500 Respiratory rate 18 /min MD Dank Campo Work Phone: [facility] 07-17-2023 09:22-0500 SaO2% (BldA) [Mass fraction] 97 % MD Dank Campo Work Phone: [facility] 07-17-2023 09:22-0500 Systolic blood pressure 173 mm[Hg] MD Dank Campo Work Phone: [facility] 07-17-2023 09:20-0500 Body height 177.8 cm MD Dank Campo Work Phone: [facility] 07-17-2023 09:20-0500 Body weight 111.13 kg MD Dank Campo Work Phone: [facility] 04-27-2023 12:40-0500 Diastolic blood pressure 68 mm[Hg] MD Dank Campo Work Phone: [facility] 04-27-2023 12:40-0500 Heart rate 75 /min MD Dank Campo Work Phone: [facility] 04-27-2023 12:40-0500 Respiratory rate 16 /min MD Dank Campo Work Phone: [facility] 04-27-2023 12:40-0500 SaO2% (BldA) [Mass fraction] 97 % MD Dank Campo Work Phone: [facility] 04-27-2023 12:40-0500 Systolic blood pressure 110 mm[Hg] MD Dank Campo Work Phone: [facility] 04-27-2023 10:29-0500 Body height 177.8 cm MD Dank Campo Work Phone: [facility] 04-27-2023 10:29-0500 Body weight 113.39 kg MD Dank Campo Work Phone: [facility] 04-10-2023 14:00-0400 Body height 177.8 cm Imad Asaad Other [employer] Other 04-10-2023 14:00-0400 Body mass index (BMI) [Ratio] 36.3 kg/m2 Imad Asaad Other [employer] Other 04-10-2023 14:00-0400 Body weight 114.76 kg Imad Asaad Other [employer] Other 04-10-2023 14:00-0400 Diastolic blood pressure 68 mm[Hg] Imad Asaad Other [employer] Other 04-10-2023 14:00-0400 Systolic blood pressure 113 mm[Hg] Imad Asaad Other [employer] [facility] [employer] Other 02-12-2023 09:46-0400 Blood Pressure Location Peterson PETERSEN [facility] 02-12-2023 09:46-0400 Diastolic blood pressure 90 mm[Hg] Peterson PETERSEN [facility] 02-12-2023 09:46-0400 Heart rate 68 /min Peterson PETERSEN [facility] 02-12-2023 09:46-0400 Respiratory rate 16 /min Peterson PETERSEN [facility] 02-12-2023 09:46-0400 Systolic blood pressure 138 mm[Hg] Peterson PETERSEN [facility] 07-24-2022 13:52-0500 Diastolic blood pressure 78 mm[Hg] MD Dank Campo Work Phone: [facility] 07-24-2022 13:52-0500 Heart rate 71 /min MD Dank Campo Work Phone: [facility] 07-24-2022 13:52-0500 Respiratory rate 16 /min MD Dank Campo Work Phone: [facility] 07-24-2022 13:52-0500 SaO2% (BldA) [Mass fraction] 96 % MD Dank Campo Work Phone: [facility] 07-24-2022 13:52-0500 Systolic blood pressure 136 mm[Hg] MD Dank Campo Work Phone: [facility] 07-24-2022 12:29-0500 Body height 177.8 cm MD Dank Campo Work Phone: [facility] 07-24-2022 12:29-0500 Body temperature 98 [degF] MD Dank Campo Work Phone: [facility] 07-24-2022 12:29-0500 Body weight 115.66 kg MD Dank Campo Work Phone: [facility] 07-20-2022 10:00-0500 Body height 177.8 cm Imad Asaad Other [facility] [employer] Other 07-20-2022 10:00-0500 Body mass index (BMI) [Ratio] 36.73 kg/m2 Imad Asaad Other [employer] Other 07-20-2022 10:00-0500 Body weight 116.12 kg Imad Asaad Other [employer] Other 07-20-2022 10:00-0500 Diastolic blood pressure 96 mm[Hg] Imad Asaad Other [employer] [facility] [employer] Other 07-20-2022 10:00-0500 Systolic blood pressure 170 mm[Hg] Imad Asaad Other [employer] Other 02-03-2022 08:29-0400 Blood Pressure Location Petersonpercy PETERSEN [facility] 02-03-2022 08:29-0400 Diastolic blood pressure 88 mm[Hg] Peterson PETERSEN [facility] 02-03-2022 08:29-0400 Heart rate 75 /min Peterson PETERSEN [facility] 02-03-2022 08:29-0400 Respiratory rate 16 /min Peterson PETERSEN [facility] 02-03-2022 08:29-0400 Systolic blood pressure 138 mm[Hg] Peterson PETERSEN [facility] Encounters Encounter Date Encounter Type Care Provider Facility Start: 02-09-2025 ambulatory Peterson PETERSEN Facili ty:[facility] [place] Start: 12-23-2024 End: 12-23-2024 ambulatory Dank Campo MD Work Phone: [facility] Work Phone: Start: 12-23-2024 End: 12-23-2024 Patient encounter procedure Rich Scott [facility] Work Phone: Start: 12-02-2024 End: 12-02-2024 ambulatory [facility] Start: 12-02-2024 End: 12-02-2024 Office outpatient visit 15 minutes Hanna Butcher MD Work Phone: [facility] Comment on above: SOB (shortness of br eath) (Primary Dx); Personal history of tobacco use, presenting hazards to health; Obstructive sleep apnea syndrome Start: 11-17-2024 End: 11-17-2024 ambulatory DANK CAMPO [facility] Start: 10-27-2024 End: 10-27-2024 Office outpatient visit 15 minutes Hanna Butcher MD Work Phone: [facility] Comment on above: SOB (shortness of br eath) (Primary Dx) Start: 10-27-2024 End: 10-27-2024 ambulatory HANNA BUTCHER [facility] Start: 10-21-2024 End: 10-21-2024 Telephone encounter Nadiya Jacobson [facility] Start: 09-24-2024 End: 09-24-2024 ambulatory DEXTER KRISHNAMURTHY Not Available Start: 09-24-2024 End: 09-24-2024 Office outpatient visit 15 minutes Dexter Krishnamurthy DP Work Phone: [facility] Comment on above: Diabetic polyneuropa thy associated with type 2 diabetes mellitus (CMS/HCC) (Primary Dx); Encounter for long-term (current) use of insulin (CMS/HCC); Chronic painful diabetic neuropathy (CMS/HCC); 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 Start: 2024 End: 2024 ambulatory Dank Campo MD Work Phone: [facility] Work Phone: Start: 2024 End: 2024 Patient encounter procedure Dank Campo MD Work Phone: [facility] Work Phone: Start: 08-04-2024 End: 08-04-2024 ambulatory Andrius Vytautas Giedraitis MD Facility: [place] Start: 07-31-2024 End: 07-31-2024 ambulatory ASHLI COLLINSKERLINE Not Available Start: 07-31-2024 End: 07-31-2024 Office outpatient visit 25 minutes Ashli Scott Cody DO Work Phone: [phone] Comment on above: Class 2 severe obesi ty due to excess calories with serious comorbidity and body mass index (BMI) of 37.0 to 37.9 in adult (CMS/HCC) (Primary Dx); Type 2 diabetes mellitus with diabetic polyneuropathy, with long-term current use of insulin (CMS/HCC); Type 2 diabetes mellitus with stage 3b chronic kidney disease, with long-term current use of insulin ([facility]) ([facility]); Type 2 diabetes mellitus with hyperglycemia, with long-term current use of insulin ([facility]/HCC) Start: 07-30-2024 End: 07-30-2024 ambulatory Dank Campo MD Work Phone: [facility] Work Phone: Start: 07-30-2024 End: 07-30-2024 Patient encounter procedure [facility] Work Phone: Start: 07-23-2024 End: 07-23-2024 Bamboo flowsheet Rebecca FREY Work Phone: [facility] Start: 07-23-2024 End: 07-23-2024 Bamboo flowsheet Rebecca FREY Work Phone: [facility] Start: 07-23-2024 End: 07-23-2024 ambulatory REBECCA DIAS Not Available Start: 07-23-2024 End: 07-23-2024 Postop follow up visit related to original px Rebecca FREY Work Phone: [facility] Comment on above: S/P arthroscopy of l eft shoulder (Primary Dx) Start: 07-21-2024 End: 07-21-2024 Bamboo flowsheet Kaden Sparks FIELD ASSISTANT [facility] Start: 07-21-2024 End: 07-21-2024 Bamboo flowsheet Kaden Sparks FIELD ASSISTANT [facility] Start: 07-21-2024 End: 07-21-2024 ambulatory Roma Lopez MD Facility: [facility] Start: 07-14-2024 End: 07-14-2024 ambulatory Roma Lopez MD Facility: [place] Start: 07-07-2024 End: 07-07-2024 Bamboo flowsheet Maureen Thompson FIELD ASSISTANT [facility] Start: 07-07-2024 End: 07-07-2024 Bamboo flowsheet Maureen Fatemeh FIELD ASSISTANT [facility] Start: 07-07-2024 End: 07-07-2024 ambulatory Maureen Brtavo FIELD ASSISTANT [facility] Comment on above: Left [...] Start: 06-26-2024 End: 06-26-2024 Bamboo flowsheet Kaden Vick FIELD ASSISTANT [facility] Start: 06-26-2024 End: 06-26-2024 Bamboo flowsheet Kaden Vick FIELD ASSISTANT [facility] Start: 06-26-2024 End: 06-26-2024 ambulatory Kaden Vick FIELD ASSISTANT [facility] Comment on above: Left [...] Start: 06-05-2024 End: 06-05-2024 ambulatory Nanda Petr FIELD ASSISTANT [facility] Comment on above: Left shoulder pain, unspecified chronicity (Primary Dx); S/P arthroscopy of left shoulder Start: 06-03-2024 End: 06-03-2024 Telephone encounter Dank Campo MD Work Phone: [facility] Start: 06-02-2024 End: 06-02-2024 Bamboo flowsheet Kaden Sparks FIELD ASSISTANT [facility] Start: 06-02-2024 End: 06-02-2024 Bamboo flowsheet Kaden Sparks FIELD ASSISTANT [facility] Start: 06-02-2024 End: 06-02-2024 ambulatory Kaden Sparks FIELD ASSISTANT [facility] Comment on above: Left [...] [facility] Start: 05-28-2024 End: 05-28-2024 [email or web address] Abakan[employer] Dank Campo MD Work Phone: [facility] [...] 05-26-2024 End: 05-26-2024 Bamboo flowsheet Kaden Sparks FIELD ASSISTANT [facility] Start: 05-26-2024 End: 05-26-2024 Bamboo flowsheet Kaden Sparks FIELD ASSISTANT [facility] Start: 05-26-2024 End: 05-26-2024 ambulatory Kaden Sparks FIELD ASSISTANT [facility] Comment on above: S/P arthroscopy of l eft shoulder (Primary Dx); Left shoulder pain, unspecified chronicity Start: 05-19-2024 End: 05-19-2024 ambulatory Kaden Sparks FIELD ASSISTANT [facility] Comment on above: S/P [...] to original px Rebecca FREY Work Phone: [facility] Comment on above: S/P arthroscopy of l eft shoulder (Primary Dx) Start: 05-09-2024 End: 05-09-2024 ambulatory REBECCA DIAS Not Available Start: 04-29-2024 End: 04-29-2024 Office outpatient visit 25 minutes Ashli Scott Cody DO Work Phone: [phone] Comment on above: Class 2 severe obesi ty due to excess calories with serious comorbidity and body mass index (BMI) of 35.0 to 35.9 in adult ([facility]/HCC) (Primary Dx); Type 2 diabetes mellitus with diabetic polyneuropathy, with long-term current use of insulin ([facility]); Type 2 diabetes mellitus with stage 3a chronic kidney disease, with long-term current use of insulin ([facility]) ([facility]); Long-term insulin use ([facility]) Start: 04-29-2024 End: 04-29-2024 ambulatory ASHLI Scott CODY Not Available Start: 04-24-2024 End: 04-24-2024 Refill Fredy Boswell GATHERING WORKER Work Phone: [facility] Comment on above: Internal derangement of left shoulder (Primary Dx) Start: 04-23-2024 End: 04-23-2024 Telephone encounter Dank Campo MD Work Phone: [facility] Start: 04-21-2024 End: 04-21-2024 ambulatory Roma Lopez MD Facility:[facility] Start: 04-18-2024 End: 04-18-2024 Clinisync Result Encounter Generic External Data Provider [facility] External Department Unsolicited Start: 04-18-2024 End: 04-18-2024 Clinisync Result Encounter Generic External Data Provider [facility] External Department Unsolicited Start: 04-15-2024 End: 04-15-2024 ambulatory [facility] Work Phone: Start: 04-15-2024 End: 04-15-2024 Patient encounter procedure [facility] G[facility] Work Phone: Start: 04-08-2024 End: 04-08-2024 Bamboo flowsheet Rebecca FREY Work Phone: [facility] Start: 04-08-2024 End: 04-08-2024 Bamboo flowsheet Rebecca FREY Work Phone: [facility] Start: 04-08-2024 End: 04-08-2024 Patient encounter procedure Rebecca FREY Work Phone: [facility] Comment on above: Pre-op examination ( Primary Dx); Preop examination Start: 04-08-2024 End: 04-08-2024 Preprocedural examination done Rebecca FREY Work Phone: [facility] Work Phone: Start: 04-08-2024 End: 04-08-2024 ambulatory REBECCA DIAS Not Available Start: 03-24-2024 End: 03-25-2024 Refill Fredy Boswell GATHERING WORKER Work Phone: [facility] Comment on above: Internal derangement of left shoulder (Primary Dx) Start: 03-18-2024 End: 03-18-2024 Bamboo flowsheet Rebecca FREY Work Phone: [facility] Start: 03-18-2024 End: 03-18-2024 Bamboo flowsheet Rebecca FREY Work Phone: [facility] Start: 03-18-2024 End: 03-18-2024 External Result Encounter Rebecca FREY Work Phone: [facility] External Department Unsolicited Start: 03-18-2024 End: 03-18-2024 Orders Only Rebecca FREY Work Phone: [facility] Comment on above: Encounter for other preprocedural examination Start: 03-18-2024 End: 03-18-2024 Patient encounter status Rebecca FREY Work Phone: [facility] Start: 03-18-2024 End: 03-18-2024 Telephone encounter Rebecca FREY Work Phone: [facility] Start: 03-18-2024 Encounter for other preprocedural examination [facility] Start: 03-18-2024 End: 03-18-2024 Patient encounter procedure Rebecca FREY Work Phone: [facility] Comment on above: Preop examination (P rimary Dx) Start: 03-18-2024 End: 03-18-2024 Preprocedural examination done Rebecca FREY Work Phone: [facility] Start: 03-18-2024 End: 03-18-2024 ambulatory REBECCA DIAS Not Available Start: 03-17-2024 End: 03-17-2024 Telephone encounter Ashli Ross DO Work Phone: [phone] Start: 03-17-2024 End: 03-17-2024 ambulatory [facility] Work Phone: Start: 03-17-2024 End: 03-17-2024 Patient encounter procedure [facility] Gastroenterology Work Phone: Start: 03-12-2024 End: 03-12-2024 ambulatory [facility] Start: 03-10-2024 End: 03-10-2024 ambulatory Roma Lopez MD Facility:[facility] Start: 03-03-2024 End: 03-03-2024 Office outpatient visit 25 minutes Jr. Johanne Hdez DO Work Phone: [facility] Comment on above: Internal derangement of left shoulder (Primary Dx); Acute pain of left shoulder Start: 03-03-2024 End: 03-03-2024 ambulatory JOHANNE MURILLO Not Available Start: 03-03-2024 End: 03-03-2024 Bamboo john Hdez DO Work Phone: [facility] Start: 03-03-2024 End: 03-03-2024 Bamnasir Hdez DO Work Phone: [facility] Start: 02-28-2024 End: 02-28-2024 Telephone encounter Hanna Butcher MD Work Phone: [facility] Start: 02-25-2024 End: 02-25-2024 Office outpatient visit 15 minutes Hanna Butcher MD Work Phone: [facility] Comment on above: Obstructive sleep ap toñito syndrome (Primary Dx); Personal history of tobacco use, presenting hazards to health Start: 02-25-2024 End: 02-25-2024 ambulatory HANNA BUTCHER [facility] Start: 02-04-2024 End: 02-04-2024 Telephone encounter Dexter Krishnamurthy DPM Work Phone: [facility] Comment on above: Advice Only (Self Pa y Shoes) Start: 02-04-2024 End: 02-04-2024 ambulatory Peterson PETERSEN Facility:[facility] Start: 02-04-2024 End: 02-04-2024 Patient encounter procedure Peterson PETERSEN [facility] Start: 01-31-2024 End: 01-31-2024 ambulatory ASHLI M CODY Not Available Start: 01-28-2024 End: 01-28-2024 ambulatory Peterson PETERSEN Facility:[facility] Start: 01-28-2024 End: 01-28-2024 Patient encounter procedure Peterson PETERSEN [facility] Start: 01-03-2024 End: 01-03-2024 Telephone encounter Oskar Contreras MD Work Phone: [facility] Start: 12-13-2023 End: 12-15-2023 ambulatory GREGORIA RALPH [facility] Comment on above: Obstructive sleep ap toñito syndrome; CSA (central sleep apnea) Start: 12-06-2023 End: 12-06-2023 Orders Only Gregoria Ralph PERLITE GRINDER-INTERNAL MEDICINE VETERINARY TECHNICIAN Work Phone: [facility] Comment on above: Obstructive sleep ap toñito syndrome (Primary Dx) Start: 12-05-2023 End: 12-05-2023 Telephone encounter Aliza Recinos [facility] Start: 12-05-2023 End: 12-05-2023 ambulatory DANK CAMPO Not Available Start: 11-22-2023 End: 11-22-2023 ambulatory DEXTER KRISHNAMURTHY Not Available Start: 11-14-2023 End: 11-14-2023 ambulatory DANK CAMPO Not Available Start: 11-05-2023 End: 11-05-2023 ambulatory Roma Lopez MD Facility: [facility] Start: 10-31-2023 End: 10-31-2023 ambulatory DEXTER KRISHNAMURTHY Not Available Start: 10-30-2023 End: 10-30-2023 ambulatory Jyoti Roth Facility:[facility] Start: 10-30-2023 End: 10-30-2023 ambulatory ASHLI ROSS Not Available Start: 10-17-2023 End: 10-17-2023 ambulatory DEXTER KRISHNAMURTHY Not Available Start: 10-15-2023 End: 10-15-2023 ambulatory Roma Lopez MD Facility: [facility] Start: 10-11-2023 End: 10-11-2023 ambulatory DANK CAMPO Not Available Start: 10-09-2023 End: 10-09-2023 ambulatory JYOTI ROTH Not Available Start: 10-01-2023 End: 10-01-2023 ambulatory Roma Lopez MD Facility: [facility] Start: 08-27-2023 Telephone encounter Aliza Recinos [facility] Start: 08-22-2023 End: 08-22-2023 ambulatory Dank Campo Facility:[facility] Start: 08-20-2023 End: 08-20-2023 ambulatory Dank Campo Facility:[facility] Start: 08-17-2023 Telephone encounter Gregoria shields PERLITE GRINDER-INTERNAL MEDICINE VETERINARY TECHNICIAN Work Phone: [facility] - Sleep Disorders Comment on above: Sleep Lab (CPAP) Start: 08-15-2023 End: 08-15-2023 Office outpatient visit 25 minutes Gregoriamyah Valdiviasaul PERLITE GRINDER-INTERNAL MEDICINE VETERINARY TECHNICIAN Work Phone: [facility] Comment on above: Personal history of tobacco use, presenting hazards to health (Primary Dx); Obstructive sleep apnea syndrome; CSA (central sleep apnea) Start: 08-09-2023 End: 08-09-2023 Patient encounter procedure MD Dank Campo Work Phone: [facility] Work Phone: Start: 08-09-2023 End: 08-09-2023 ambulatory MD Dank Campo Work Phone: [facility] Work Phone: Start: 08-02-2023 Telephone encounter Aliza Escalera [facility] Start: 08-01-2023 Chart abstracting Jr. Johanne Hdez DO Work Phone: [facility] Start: 07-30-2023 End: 07-30-2023 Office outpatient visit 25 minutes Ashli Ross DO Work Phone: [phone] Comment on above: Class 2 severe obesi ty due to excess calories with serious comorbidity and body mass index (BMI) of 36.0 to 36.9 in adult ([facility]) (Primary Dx); Type 2 diabetes mellitus with diabetic polyneuropathy, with long-term current use of insulin ([facility]) Start: 07-24-2023 End: 07-24-2023 Patient encounter procedure MD Dank Campo Work Phone: [facility] [place] Work Phone: Start: 07-17-2023 End: 07-17-2023 ambulatory MD Dank Campo Work Phone: [facility] Work Phone: Start: 07-17-2023 End: 07-17-2023 Patient encounter procedure MD Dank Campo Work Phone: [facility] [place] Work Phone: Start: 06-26-2023 End: 06-26-2023 ambulatory MD Dank Campo Work Phone: [facility] Work Phone: Start: 06-26-2023 End: 06-26-2023 Patient encounter procedure MD Dank Campo Work Phone: [facility]-MRI [address] Work Phone: Start: 04-27-2023 End: 04-27-2023 Admission to same day surgery center MD Dank Campo Work Phone: [facility] Work Phone: Start: 04-27-2023 End: 04-27-2023 ambulatory MD Dank Campo Work Phone: [facility] Work Phone: Start: 04-10-2023 End: 04-10-2023 ambulatory Imad Asaad Other [employer] Other Start: 04-10-2023 Office outpatient ne w 45 minutes Imad Asaad [facility] Start: 03-20-2023 End: 03-20-2023 ambulatory Imad Asaad Other [employer] Other Start: 03-20-2023 Telephone encounter Imad Asaad [facility] Start: 02-12-2023 End: 02-12-2023 ambulatory Peterson PETERSEN Facility: [facility] Start: 02-12-2023 End: 02-12-2023 Patient encounter procedure Peterson PETERSEN [facility] Start: 02-06-2023 End: 02-06-2023 Lab Drop off ROSALVA MURO [facility] Start: 02-06-2023 End: 02-06-2023 ambulatory ROSALVA MURO Facility:[facility] Start: 02-06-2023 End: 02-06-2023 Patient encounter procedure DEJUAN PETERSEN [facility] Start: 10-17-2022 End: 10-18-[address] DANK CAMPO Facility:[facility] Start: 09-20-2022 End: 09-20-2022 ambulatory Imad Asaad Other [employer] Other Start: 09-20-2022 Telephone encounter Imad Asaad [facility] Start: 09-14-2022 End: 09-14-[address] DANK CAMPO Facility:[facility] Start: 09-12-2022 End: 09-13-[address] DANK CAMPO Facility:[facility] Start: 07-24-2022 Telephone encounter Imad Asaad [facility] Start: 07-24-2022 End: 07-24-2022 Admission to same day surgery center MD Dank Campo Work Phone: [facility] Work Phone: Start: 07-24-2022 End: 07-24-2022 ambulatory MD Dank Campo Work Phone: [facility] Work Phone: Start: 07-20-2022 End: 07-20-2022 ambulatory Imad Asaad Other [employer] Other Start: 07-20-2022 Patient encounter procedure Imad Asaad [facility] Start: 05-10-2022 End: 05-11-[address] DANK CAMPO Facility:[facility] Start: 04-14-2022 End: 04-15-[address] SORIN SHORE Facility:[facility] Start: 02-03-2022 End: 02-03-2022 Patient encounter procedure Peterson PETERSEN [facility] Start: 01-30-2022 End: 01-31-2022 ambulatory MR REBECCA DIAS . Facility: Start: 01-27-2022 End: 01-28-[address] PETERSON PETERSEN . Facility: Procedures Date Procedure Procedure Detail Performing Clinician Start: 07-31-2024 Hemoglobin glycosylated a1c Ashli Scott Cassius green DO Work Phone: Start: 07-30-2024 Supine abdominal X-ray Dank Campo MD Work Phone: Start: 05-29-2024 Radex foot complete minimum 3 views Dexter Krishnamurthy DPM Work Phone: Start: 04-29-2024 Hemoglobin glycosylated a1c Ashli Scott Cassius berumenrigo DO Work Phone: Start: 04-18-2024 ALL CBC WITH AUTO DIFF Generic External Data Provider Start: 03-18-2024 Complete blood count with white cell differential, automated Rebecca FREY Work Phone: Start: 02-25-2024 Follow-up visit Follow-up HANNA BUTCHER Start: 07-30-2023 Hemoglobin glycosylated a1c Ashli Scott Pe atarigo DO Work Phone: Start: 07-24-2023 CT of left shoulder with contrast MD Reina Campo Work Phone: Start: 04-27-2023 End: 04-27-2023 Colonoscopy MD Dank Campo Work Phone: Start: 07-24-2022 Esophagogastroduodenoscopy MD Dank Mckinley er Work Phone: Start: 03-18-2021 Laparoscopic cholecystectomy Peterson GOODE Start: 02-11-2020 Colonoscopy Rebecca Dias PA Work Phone: Start: 01-16-2020 Radiation (physical force) [...] 04-27-2033 Screening for malignant neoplasm of colon [facility] Start: 01-20-2031 DTaP,Tdap and Td Vaccines (3 - Td or Tdap) DTaP,Tdap and Td Vaccines (3 - Td or Tdap) [facility] Start: 01-20-2031 DTaP,Tdap and Td Vaccines (4 - Td or Tdap) DTaP,Tdap and Td Vaccines (4 - Td or Tdap) [facility] Start: 02-10-2030 Screening for malignant neoplasm of colon [facility] Start: 10-27-2025 Adult BMI Screening Adult BMI Screening [facility] Start: 10-27-2025 Tobacco Screening Tobacco Screening [facility] Start: 08-27-2025 Glaucoma screening Diabetes: Retinopathy Screening [facility] Start: 03-09-2025 End: 03-09-2025 Patient encounter procedure 03/09/2025 9:00 AM EDT Office Visit [facility] [address] [place] [address] Hanna Butcher MD [address] [facility] [address] [place] [address] [facility] Start: 02-24-2025 Adult BMI Screening Adult BMI Screening [facility] Start: 02-24-2025 Tobacco Screening Tobacco Screening [facility] Start: 02-16-2025 Influenza vaccination Influenza Vaccine [facility] Start: 12-12-2024 Adult BMI Screening Adult BMI Screening [facility] Start: 12-02-2024 End: 12-02-2024 Patient encounter procedure 12/02/2024 12:45 PM EDT Office Visit [facility] [address] [place] [phone] Hanna Butcher MD [address] [facility] [address] [place] [address] [facility] Start: 10-30-2024 End: 10-30-2024 Patient encounter procedure 10/30/2024 11:15 AM EDT Office Visit [facility] [address] [place] [address] Ashli Ross DO [address] [place] [address] [facility] 230 Start: 10-28-2024 Hemoglobin A1c measurement Diabetes: Hemoglobin A1C [facility] Start: 10-21-2024 End: 10-21-2025 XR Chest PA and Lateral X-ray chest 2 views Imaging Routine SOB (shortness of breath) Expected: 10/21/2024, Expires: 10/21/2025 [facility] Work Phone: Comment on above: Expected: 10/21/2024, Expires: Start: 09-03-2024 Urine screening for protein Diabetes: Urine Protein Screening [facility] Start: 08-27-2024 End: 08-27-2024 Patient encounter procedure 08/27/2024 7:30 AM EDT Office Visit [facility] [address] [place] [address] Dank Campo MD [address] [place] [address] [facility] Start: 08-22-2024 End: 08-22-2024 ambulatory 08/22/2024 8:00 AM EST Treatment [facility] [address] [facility] [address] [place] [address] Alma Berkowitz, PT [facility] Start: 08-18-2024 End: 08-18-2024 ambulatory 08/18/2024 7:30 AM EST Treatment [facility] [address] [facility] [address] [place] [address] Kaden Sparks, FIELD ASSISTANT [facility] Start: 08-15-2024 Adult BMI Screening Adult BMI Screening [facility] Start: 08-15-2024 Tobacco Screening Tobacco Screening [facility] Start: 08-14-2024 End: 08-14-2024 ambulatory 08/14/2024 8:00 AM EST Treatment [facility] [address] [facility] [address] [place] [address] Alma Berkowitz, PT [facility] Start: 08-11-2024 End: 08-11-2024 ambulatory 08/11/2024 7:30 AM EST Treatment [facility] [address] [facility] [address] [place] [address] Kaden Sparks, FIELD ASSISTANT [facility] Start: 08-07-2024 End: 08-07-2024 ambulatory 08/07/2024 8:00 AM EST Treatment [facility] [address] [facility] [address] [place] [address] Alma Berkowitz, PT [facility] Start: 08-04-2024 End: 08-04-2024 ambulatory 08/04/2024 7:30 AM EST Treatment [facility] [address] [facility] [address] [place] [address] Kaden Sparks, FIELD ASSISTANT [facility] Start: 07-31-2024 End: 07-31-2024 Patient encounter procedure 07/31/2024 10:30 AM EST Office Visit [facility] [address] [place] [address] SonumalloryAshli, DO [address] [place] [address] [facility] Start: 07-31-2024 End: 07-31-2024 ambulatory 07/31/2024 8:00 AM EST Treatment [facility] [address] [facility] [address] [place] [address] Kaden Sparks, FIELD ASSISTANT [facility] Start: 07-30-2024 Hemoglobin A1c measurement Diabetes: Hemoglobin A1C [facility] Start: 07-28-2024 End: 07-28-2024 ambulatory [facility] Start: 07-24-2024 End: 07-24-2024 ambulatory 07/24/2024 8:00 AM EST Treatment [facility] [address] [facility] [address] [place] [address] Alma Berkowitz, PT [facility] Start: 07-23-2024 End: 07-23-2024 Patient encounter procedure 07/23/2024 9:15 AM EST Office Visit [facility] [address] [place] [phone] Rebecca Dias, PA [address] [facility] [address] [place] [address] [facility] Start: 07-21-2024 End: 07-21-2024 ambulatory 07/21/2024 8:00 AM EST Treatment [facility] [address] [facility] [address] [place] [address] Kaden Sparks, FIELD ASSISTANT [facility] Start: 07-16-2024 End: 07-16-2024 ambulatory 07/16/2024 8:00 AM EST Treatment [facility] [address] [facility] [address] [place] [address] Kaden Sparks, FIELD ASSISTANT [facility] Start: 07-14-2024 End: 07-14-2024 Patient encounter procedure 07/14/2024 2:00 PM EST Office Visit [facility] [address] [place] [phone] Hanna Butcher MD [address] [facility] [address] [place] [address] [facility] Start: 07-01-2024 End: 07-01-2024 ambulatory 07/01/2024 9:00 AM EST Treatment [facility] [address] [facility] [address] [place] [address] Alma Berkowitz, PT [facility] Start: 06-26-2024 End: 06-26-2024 ambulatory 06/26/2024 9:00 AM EST Treatment [facility] [address] [facility] [address] [place] [phone] Kaden Sparks FIELD ASSISTANT [facility] Start: 06-25-2024 End: 06-25-2024 Patient encounter procedure 06/25/2024 8:45 AM EST Office Visit [facility] [address] [place] [phone] Rebecca Dias, PA [address] [facility] [address] [place] [address] [facility] Start: 06-24-2024 End: 06-24-2024 ambulatory 06/24/2024 9:00 AM EST Treatment [facility] [address] [facility] [address] [place] [address] Alma Berkowitz, PT [facility] Start: 06-20-2024 End: 06-20-2024 ambulatory 06/20/2024 8:00 AM EST Treatment [facility] [address] [facility] [address] [place] [address] Justina Carrillo, PT [address] [place] [address] [facility] Start: 06-16-2024 End: 06-16-2024 ambulatory 06/16/2024 10:00 AM EST Treatment [facility] [address] [facility] [address] [place] [address] Alma Berkowitz, PT [facility] Start: 06-06-2024 End: 06-06-2024 Patient encounter procedure 06/06/2024 9:00 AM EST Office Visit [facility] [address] [place] [phone] Rebecca Dias, PA [address] [facility] [address] [place] [address] [facility] Start: 06-05-2024 End: 06-05-2024 ambulatory [facility] Start: 06-02-2024 End: 06-02-2024 ambulatory 06/02/2024 12:00 PM EST Treatment [facility] [address] [facility] [address] [place] [address] Kaden Sparks, FIELD ASSISTANT [facility] Start: 05-29-2024 End: 05-29-2024 Patient encounter procedure 05/29/2024 2:45 PM EST Office Visit [facility] [address] [place] [phone] Dexter Krishnamurthy DPM [address] [place] [address] [facility] Start: 05-29-2024 End: 05-29-2024 ambulatory [facility] Start: 05-28-2024 End: 05-28-2024 Patient encounter procedure [facility] Comment on above: Arrived Start: 05-26-2024 End: 05-26-2024 ambulatory 05/26/2024 10:00 AM EST Treatment [facility] [address] [facility] [address] [place] [address] Kaden Sparks, FIELD ASSISTANT [facility] Start: 05-22-2024 End: 05-22-2024 ambulatory [facility] Start: 05-19-2024 End: 05-19-2024 ambulatory 05/19/2024 7:00 AM EST Treatment [facility] [address] [place] [address] Kaden Sparks, FIELD ASSISTANT [facility] Start: 05-13-2024 End: 05-13-2024 ambulatory 05/13/2024 9:30 AM EST Evaluation [facility] [address] [place] [address] Alma Berkowitz, PT [facility] Start: 05-09-2024 End: 05-09-2024 Patient encounter procedure [facility] Comment on above: S/P arthroscopy of left shoulder (Primar y Dx) Start: 05-02-2024 Hemoglobin A1c measurement Diabetes: Hemoglobin A1C [facility] Start: 04-29-2024 End: 04-29-2024 Patient encounter procedure [facility] Comment on above: Type 2 diabetes mellitus with diabetic p olyneuropathy, with long-term current use of insulin ([facility]) Start: 04-08-2024 End: 04-08-2024 Patient encounter procedure [facility] Comment on above: Pre-op examination (Primary Dx) Start: 03-25-2024 End: 03-25-2024 Patient encounter procedure 03/25/2024 1:30 PM EDT Procedure Visit [facility] Jr. Johanne Hdez DO [address] [place] [address] [facility] Start: 03-18-2024 End: 03-13-2025 Basic metabolic 1998 panel - Serum or Plasma Basic metabolic panel Lab Routine Preop examination Expected: 03/18/2024 (Approximate), Expires: 03/13/2025 [facility] Work Phone: Comment on above: Expected: 03/18/2024 (Approximate), Expi res: 03/13/2025 Start: 03-18-2024 End: 03-18-2025 Basic metabolic 2000 panel - Serum or Plasma Basic Metabolic Panel Lab Routine Encounter for other preprocedural examination Expected: 03/18/2024, Expires: 03/18/2025 [facility] Work Phone: Comment on above: Expected: 03/18/2024, Expires: Start: 03-18-2024 End: 03-18-2025 CBC W Auto Differential panel - Blood [facility] Comment on above: Expected: 03/18/2024 (Approximate), Expi res: 03/13/2025 Expected: 03/18/2024 , Expires: 03/18/2025 Start: 03-18-2024 End: 03-13-2025 Prothrombin time (PT) in Blood by Coagulation assay Protime-INR Lab Routine Preop examination Expected: 03/18/2024 (Approximate), Expires: 03/13/2025 [facility] Comment on above: Expected: 03/18/2024 (Approximate), Expi res: 03/13/2025 Start: 03-18-2024 End: 03-18-2025 Protime & INR Protime & INR Lab Routine Encounter for other preprocedural examination Expected: 03/18/2024, Expires: 03/18/2025 [facility] Work Phone: Comment on above: Expected: 03/18/2024, Expires: Start: 03-18-2024 Subsequent hospital visit by physician 03/18/2024 9:07 AM EDT Hospital Encounter [facility] [address] [place] [phone] Arrived [facility] Comment on above: Arrived Start: 03-18-2024 End: 03-18-2024 Patient encounter procedure [facility] Comment on above: Preop examination Start: 03-03-2024 End: 03-03-2024 Patient encounter procedure 03/03/2024 2:30 PM EDT Office Visit [facility] [address] [place] [phone] Jr. Johanne Hdez, DO [address] [place] [address] Arrived [facility] Comment on above: Arrived Start: 02-25-2024 End: 02-24-2025 CT Chest for screening WO contrast CT low dose lung screening (Annual) Imaging Routine Personal history of tobacco use, presenting hazards to health Expected: 02/25/2024, Expires: 02/24/2025 [facility] Work Phone: Comment on above: Expected: 02/25/2024, Expires: Start: 02-25-2024 End: 02-25-2024 Patient encounter procedure [facility] Start: 02-17-2024 COVID-19 Vaccine ( season) COVID-19 Vaccine () [facility] Start: 02-17-2024 COVID-19 Vaccine ( season) COVID-19 Vaccine () [facility] Start: 02-17-2024 Influenza vaccination [facility] Start: 12-13-2023 End: 12-13-2023 Clinical Support 12/13/2023 8:00 PM EDT [facility] [address] [place] [address] [facility] Start: 11-19-2023 End: 11-19-2023 Clinical Support 11/19/2023 8:00 PM EDT Clinical Support [facility] [address] [place] [address] [facility] Start: 10-29-2023 End: 10-29-2023 Patient encounter procedure 10/29/2023 1:15 PM EDT Office Visit [facility] [address] [place] [address] Ashli Ross DO [address] [place] [address] [facility] Start: 10-28-2023 Hemoglobin A1c measurement Diabetes: Hemoglobin A1C [facility] Start: 08-29-2023 End: 08-29-2023 Patient encounter procedure 08/29/2023 7:45 AM EDT Office Visit [facility] [address] [place] [address] Dank Campo MD [address] [place] [address] [facility] Start: 08-23-2023 End: 08-23-2023 Patient encounter procedure [facility] Start: 08-15-2023 End: 08-15-2024 CT Chest for screening WO contrast CT low dose lung screenin (3mo 6mo follow-up) Imaging Routine Personal history of tobacco use, presenting hazards to health Expected: 08/15/2023, Expires: 08/15/2024 [facility] Work Phone: Comment on above: Expected: 08/15/2023, Expires: Start: 08-15-2023 End: 08-15-2024 Echo complete W/O contrast Echo complete W/O contrast Echocardiography Routine Obstructive sleep apnea syndrome CSA (central sleep apnea) Expected: 08/15/2023, Expires: 08/15/2024 [facility] Comment on above: Expected: 08/15/2023, Expires: 5 Start: 08-09-2023 End: 08-09-2023 Patient encounter procedure 08/09/2023 8:30 AM EST Office Visit [facility] [address] [place] [phone] Dexter Krishnamurthy, NELLIE [address] [place], [place] [phone] [facility] Start: 08-01-2023 End: 08-01-2023 Patient encounter procedure 08/01/2023 10:30 AM EST Office Visit [facility] [address] [place] [phone] Jr. Johanne Hdez, DO [address] [facility] [address] [place] [address] [facility] Start: 04-27-2023 [facility] Start: 04-11-2023 Administration of varicella zoster vaccine Zoster (Shingles) Vaccine (3 of 3) [facility] Start: 02-16-2023 COVID-19 Vaccine ( season) COVID-19 Vaccine ( season) [facility] Start: 02-16-2023 COVID-19 Vaccine ( season) COVID-19 Vaccine () [facility] Start: 02-16-2023 Influenza vaccination Influenza Vaccine [facility] Start: 07-24-2022 [facility] Start: 04-15-2022 Adult BMI Screening Adult BMI Screening [facility] Start: 09-15-2020 Abdominal aortic aneurysm screening Abdominal Aortic Aneurysm (AAA) Screen [facility] Start: 09-15-2020 Fall Risk Screening Fall Risk Screening [facility] Start: 09-15-1974 Urine screening for protein Diabetes: Urine Protein Screening [facility] Start: 09-15-1973 Adult BMI Follow Up Plan Adult BMI Follow Up Plan [facility] Start: 1967 Depression Screening Depression Screening [facility] Start: 1967 Tobacco Screening Tobacco Screening [facility] Start: 09-15-1965 Glaucoma screening Diabetes: Retinopathy Screening [facility] Start: 1955 Medicare Annual Wellness (AWV) Medicare Annual Wellness (AWV) [facility] Start: 1955 Medicare Annual Wellness Visit Medicare Annual Wellness Visit [facility] Start: 1955 Screening for malignant neoplasm of colon [facility] Patient Education [facility] Work Phone: End: 08-15-2024 Polysomnography 4 or more parameters with PAP titration Polysomnography 4 or more parameters with PAP titration Sleep Center Routine Obstructive sleep apnea syndrome CSA (central sleep apnea) 1 Occurrences starting 08/15/2023 until 08/15/2024 [facility] Comment on above: 1 Occurrences starting 08/15/2023 until 08/15/2024 End: 10-27-2025 Pulmonary function test Spirometry (Flow Volume Loop) pre/post short acting bronchodilator w/ DLCO (diffusion study) Pulmonary function test Spirometry (Flow Volume Loop) pre/post short acting bronchodilator w/ DLCO (diffusion study) PFT Routine SOB (shortness of breath) 1 Occurrences starting 10/27/2024 until 10/27/2025 [facility] Work Phone: Comment on above: 1 Occurrences starting 10/27/2024 until 10/27/2025 Supine abdominal X-ray [facility] XR Shoulder - left 2 Views XR shoulder 2+ views left Imaging Routine Acute pain of left shoulder 03/03/2024 2:47 PM EDT [facility] Work Phone: Immunizations Immunization Date Immunization Notes Care Provider Kiera johnston 02-28-2024 ABRYSVO - Respirator y syncytial virus (RSV), vaccine, bivalent, protein subunit RSV prefusion F, diluent reconstituted, 0.5 mL, PF Ashli Petznick DO Work Phone: [facility] 02-28-2024 influenza, high dose seasonal, preservative-free Ashli Petznick DO Work Phone: [facility] 02-28-2024 influenza virus vaccine, unspecified formulation Jr. Medinaanic DO Work Phone: [facility] 04-22-2023 zoster vaccine recombinant Ashli Petznick DO Work Phone: [facility] 03-23-2023 RSV, recombinant, protein subunit RSVpreF, adjuvant reconstitu, 120mcg/0.5mL, PF (Arexvy) Ashli Petznick DO Work Phone: [facility] 02-14-2023 influenza virus vaccine, unspecified formulation Peterson PETERSEN [facility] 02-14-2023 Influenza, Seasonal, Quadrivalent, Adjuvanted Ashli Petznick DO Work Phone: [facility] 02-14-2023 zoster vaccine recombinant Ashli Petznick DO Work Phone: [facility] 02-14-2023 zoster vaccine, unspecified formulation Aliza Escalera [facility] 04-09-2022 COVID-19 mRNA Bivale nt Booster (Pfizer) MD Dank Campo Work Phone: [facility] 04-09-2022 influenza virus vaccine, unspecified formulation Peterson PETERSEN [facility] 04-09-2022 Influenza, Seasonal, Quadrivalent, Adjuvanted Ashli Petznick DO Work Phone: [facility] 04-13-2021 COVID-19 mRNA, Comirnaty (Pfizer) MD Dank Campo Work Phone: [facility] 02-22-2021 influenza virus vaccine, unspecified formulation Peterson PETERSEN [facility] 02-22-2021 Influenza, Seasonal, Quadrivalent, Adjuvanted Ashli Petznick DO Work Phone: [facility] 02-22-2021 pneumococcal polysaccharide vaccine, 23 valent Ashli Petznick DO Work Phone: [facility] 02-16-2021 pneumococcal conjuga te vaccine, 13 valent Peterson PETERSEN [facility] 01-20-2021 tetanus and diphther ia toxoids, adsorbed, preservative free, for adult use (5 Lf of tetanus toxoid and 2 Lf of diphtheria toxoid) Imad Asaad Other [employer] Other 01-20-2021 tetanus and diphther ia toxoids, adsorbed, preservative free, for adult use (2 Lf of tetanus toxoid and 2 Lf of diphtheria toxoid) Peterson PETERSEN [facility] 01-17-2021 influenza virus vaccine, unspecified formulation Peterson PETERSEN [facility] 01-17-2021 influenza, seasonal, injectable Ashli Petznick DO Work Phone: [facility] 01-17-2021 Moderna SARS-CoV-2 Vaccination Ashli Petznick DO Work Phone: [facility] 10-16-2020 SARS-CoV-2 (COVID-19 ) mRNA [id number] vax Peterson PETERSEN [facility] 10-01-2020 COVID-19 mRNAAlfred (Pfizer) MD Dank Campo Work Phone: [facility] 09-08-2020 COVID-19 mRNAHarrisonirmandy (Pfizer) MD Dank Campo Work Phone: [facility] 02-17-2020 influenza virus vaccine, unspecified formulation [employer] [facility] 02-17-2020 influenza, injectabl e, quadrivalent, preservative free Ashli Petznick DO Work Phone: [facility] 02-09-2020 influenza, high dose seasonal, preservative-free Ashli Petznick DO Work Phone: [facility] 03-15-2019 influenza virus vaccine, unspecified formulation [employer] [facility] 03-15-2019 influenza, injectabl e, quadrivalent, preservative free Ashli Petznick DO Work Phone: [facility] 02-25-2018 influenza virus vaccine, unspecified formulation [employer] [facility] 02-25-2018 influenza, injectabl e, quadrivalent, preservative free Ashli Petznick DO Work Phone: [facility] 05-30-2017 pneumococcal conjuga te vaccine, 13 valent Ashli Petznick DO Work Phone: [facility] 05-30-2017 pneumococcal polysaccharide vaccine, 23 valent Ashli Petznick DO Work Phone: [facility] 03-02-2017 influenza nasal, unspecified formulation Ashli Petznick DO Work Phone: [facility] 03-02-2017 influenza virus vaccine, unspecified formulation Peterson Winestyr [facility] 03-02-2017 influenza, injectabl e, quadrivalent, preservative free Ashli Petznick DO Work Phone: [facility] 03-05-2016 influenza virus vaccine, unspecified formulation Peterson Winestyr [facility] 03-05-2016 influenza, injectabl e, quadrivalent, preservative free Ashli Petznick DO Work Phone: [facility] 03-05-2016 influenza, seasonal, injectable Ashli Petznick DO Work Phone: [facility] 02-18-2015 zoster vaccine, live Ashli Petznick DO Work Phone: [facility] 02-01-2015 influenza virus vaccine, unspecified formulation Peterson Winestyr [facility] 02-01-2015 influenza, seasonal, injectable Ashli Petznick DO Work Phone: [facility] 08-18-2014 tetanus toxoid, redu inocencio diphtheria toxoid, and acellular pertussis vaccine, adsorbed Ashli Petznick DO Work Phone: [facility] 08-04-2013 pneumococcal conjuga te vaccine, 13 valent Ashli Petznick DO Work Phone: [facility] Payers Date Payer Category Payer Self-pay [id number] 2023 Unknown [id number] 2021 Medicare (Managed Care) SADIA YUAN [id number] 2021 Medicare HMO [facility] [id number]. [id number] 2020 Medicare 1.2.840.220304. 1.13.693. 2.7.3.498033.315 2013 Unknown 1.2.840.283908. 1.13.424. 2.7.3.844815.315 1959 Medicare [id number] 1955 Unknown [id number] 2.16.840.1.911068.3.579. 2.593 1955 Unknown [id number] 2.16.840.1.057215.3.579. 2.593 1955 Unknown [id number] 2.16.840.1.391398.3.579. 2.593 1955 Unknown [id number] 2.16.840.1.824944.3.579. 2.593 1955 Unknown [id number] 2.16.840.1.719381.3.579. 2.593 1955 Unknown [id number] 2.16.840.1.570940.3.579. 2.593 1955 Unknown [id number] 2.16.840.1.952461.3.579. 2.593 1955 Unknown [id number] 2.16.840.1.579034.3.579. 2.593 1955 Unknown [id number] 2.16.840.1.269377.3.579. 2.1286 1955 Unknown [id number] 2.16.840.1.708130.3.579. 2.727 1955 Unknown [id number] 2.16.840.1.516666.3.579. 2.727 1955 Unknown [id number] 2.16.840.1.201599.3.579. 2.727 1955 Unknown [id number] 2.16.840.1.702859.3.579. 2.727 1955 Unknown [id number] 2.16.840.1.088879.3.579. 2.727 1955 Unknown [id number] 2.16.840.1.001353.3.579. 2.727 1955 Unknown [id number] 2.16.840.1.374996.3.579. 2.196 1955 Unknown [id number] 2.16.840.1.447630.3.579. 2.196 1955 Unknown [id number] 2.16.840.1.621882.3.579. 2.196 1955 Unknown [id number] 2.16.840.1.160962.3.579. 2.196 1955 Unknown [id number] 2.16.840.1.224570.3.579. 2.196 1955 Unknown [id number] 2.16.840.1.096309.3.579. 2.196 1955 Unknown [id number] 2.16.840.1.020333.3.579. 2.196 1955 Unknown [id number] 2.16.840.1.633885.3.579. 2.196 1955 Unknown [id number] 2.16.840.1.628190.3.579. 2.1258 1955 Unknown [id number] 2.16.840.1.045739.3.579. 2.1258 1955 Unknown [id number] 2.16.840.1.677367.3.579. 2.1258 1955 Unknown [id number] 2.16.840.1.004276.3.579. 2.1258 1955 Unknown [id number] 2.16.840.1.807532.3.579. 2.1258 1955 Unknown [id number] 2.16.840.1.640879.3.579. 2.1258 1955 Unknown [id number] 2.16.840.1.405365.3.579. 2.1258 1955 Unknown [id number] 2.16.840.1.850036.3.579. 2.1258 1955 Unknown [id number] 2.16.840.1.080115.3.579. 2.1258 1955 Unknown [id number] 2.16.840.1.758435.3.579. 2.1258 1955 Unknown [id number] 2.16.840.1.138792.3.579. 2.1258 1955 Unknown [id number] 2.16.840.1.510162.3.579. 2.1258 1955 Unknown [id number] 2.16.840.1.900133.3.579. 2.1258 1955 Unknown [id number] 2.16.840.1.485788.3.579. 2.1258 1955 Unknown [id number] 2.16.840.1.839038.3.579. 2.1258 1955 Unknown [id number] 2.16.840.1.571958.3.579. 2.1258 1955 Unknown [id number] 2.16.840.1.677706.3.579. 2.1258 1955 Unknown [id number] 2.16.840.1.292768.3.579. 2.1258 1955 Unknown [id number] 2.16.840.1.419563.3.579. 2.1258 1955 Unknown [id number] 2.16.840.1.717579.3.579. 2.1258 1955 Unknown [id number] 2.16.840.1.987939.3.579. 2.1258 1955 Unknown [id number] 2.16.840.1.307692.3.579. 2.1258 1955 Unknown [id number] 2.16.840.1.307672.3.579. 2.1258 1955 Unknown [id number] 2.16.840.1.029033.3.579. 2.1258 1955 Unknown [id number] 2.16.840.1.954049.3.579. 2.1258 1955 Unknown [id number] 2.16.840.1.949611.3.579. 2.1258 1955 Unknown [id number] 2.16.840.1.593062.3.579. 2.1258 1955 Unknown [id number] 2.16.840.1.279842.3.579. 2.1259 1955 Unknown [id number] 2.16.840.1.039275.3.579. 2.1258 1955 Unknown [id number] 2.16.840.1.396294.3.579. 2.125 1955 Unknown [id number] 2.16.840.1.263574.3.579. 2.125 1955 Unknown [id number] 2.16.840.1.583781.3.579. 2.1258 1955 Unknown [id number] 2.16.840.1.494458.3.579. 2.1258 1955 Unknown [id number] 2.16.840.1.446104.3.579. 2.1258 1955 Unknown [id number] 2.16.840.1.934911.3.579. 2.1258 1955 Unknown [id number] 2.16.840.1.986189.3.579. 2.1285 1955 Unknown [id number] 2.16.840.1.847439.3.579. 2.6 1955 Unknown [id number] 2.16.840.1.296830.3.579. 2.1285 1955 Unknown [id number] 2.16.840.1.384016.3.579. 2.128 1955 Unknown [id number] 2.16.840.1.955069.3.579. 2.128 1955 Unknown [id number] 2.16.840.1.603214.3.579. 2.1285 1955 Unknown [id number] 2.16.840.1.678235.3.579. 2.1286 Medicare Medicare [id number] Unknown Sadia BC/BS [id number] Unknown Regular Insurance [id number] Unknown [id number] 2.16.840.1.453415.3.579. 2.531 Unknown [id number] 2.16.840.1.532363.3.579. 2.531 Unknown [id number] 2.16.840.1.348435.3.579. 2.531 Unknown [id number] 2.16.840.1.022841.3.579. 2.531 Unknown [id number] 2.16.840.1.163922.3.579. 2.531 Worker's Compensation [employer] [id number] Worker's Compensation [id number] Social History Date Type Detail Facility Start: 02-03-2022 End: 08-20-2023 Ex-smoker (finding) [facility] Start: 06-29-2020 End: 01-09-2023 Male [facility] Start: 1955 Sex Assigned At Male [facility] Start: 06-18-1974 End: 2021 History of tobacco use Current smoker [facility] Start: 06-18-1974 End: 2021 History of tobacco use Cigarette Smoker [facility] Start: 06-29-2020 End: 12-11-2022 Cigarettes smoked current (pack per day) - Reported 1.5 [facility] Start: 12-11-2022 End: 08-15-2023 Tobacco use and exposure Smokeless tobacco non-user [facility] Start: 07-30-2023 End: 09-24-2024 Alcohol intake Ex-drinker (finding) [facility] Within the last year , have you been afraid of your partner or ex-partner? No [facility] Do you belong to any clubs or organizations such as scientology groups, unions, fraternal or athletic groups, or [...] -6 months agoHeavy cigarette smoker (20-39 cigs/day) [facility] Start: 05-01-2023 Alcohol Comment Caffeine intake: non e [facility] Start: 1955 Sex Assigned At Not on file [facility] Start: 01-21-2015 End: 07-30-2024 Sex Male (finding) [facility] Start: 08-16-2023 End: 10-27-2024 Alcoholic beverage intake Current non-drinker of alcohol (finding) [facility] Start: 12-22-2020 Tobacco smoking stat [facility] Equipment Procedure Code Equipment Code Equipment Origin al Text Equipment Identifier Dates EGD (esophagogastroduod enoscopy) Video capsule endoscopy system [id number] -[id number] [facility] Start: 08-18-2020 [id number] Start: 09-19-2022 use to test BLOO D SUGAR THREE TIMES DAILY [id number] Start: 09-19-2022 use to test BLOO D SUGAR THREE TIMES DAILY [id number] Start: 11-01-2022 USE DIRECTED FOUR TIMES DAILY [id number] Start: 02-21-2024 Fsbs bid [id number] Start: 12-17-2023 USE DIRECTED FOUR TIMES DAILY [id number] Start: 11-21-2023 USE DIRECTED FOUR TIMES DAILY [id number] Start: 06-05-2024 Swivelock 4.75 - Sna - [id number] Start: 12-10-2017 Incv/Swivelock 4.75 Use [id number] - Sna - [id number] Start: 07-19-2020 Goals Date Patient Goal Desired Activity /State Personal health goal Comment on above: Formatting of this n ote might be different from the original. Evaluation of progress towards goal: Home self care with childrens support Functional Status Date Assessment Result Facility 02-04-2024 Functional Status N/A [facility] 02-12-2023 Functional Status N/A [facility] 02-03-2022 N/A [facility] Clinical Notes 11-04-2020 to 12-02-2024 Hanna Butcher MD - 12/02/2024 12:45 PM EDTKatmarion Butcher MD - 10/27/2024 10:15 AM EDTPatient InstructionsTelephone Encounter - KARISSA Rivera - 10/21/2024 11:38 AM EDT Note Date & Type Note Facility 12-02-2024 History of Presen t illness Narrative Images from the original note were not included. [address] [facility] [id number] Patient: Milad Seymour Date of : 1955 Encounter Date: 12/02/2024 History of Present Illness: The patient is a 69 y.o. male, and requested a telephone visit for follow up of FRANK and dyspnea. Feels he is not limited in his exertion by his breathing, more so by his low back pain. He is supposed to get in with his pain clinic. Mask interface: FFM (changed out in September) [] Epistaxis [] Aerophagia [] Pressure intolerance [] Skin irritation [x] Mask leak URI symptoms have resolved. Did walk a distance he did have to stop for his breathing. No coughing regularly. Compliance data: 2024: 2020: Assessment: 1. Obstructive sleep apnea (AHI 95.2, minimum saturation 71%, PSG 2014, weight 215 lb) currently on auto bilevel PAP 25/10 pressure support 5 cm of water with excellent compliance and benefit but increased residual AHI, likely related to leak 2. Dyspnea on exertion 3. Essential hypertension 4. Prior extensive nicotine use history, greater than 100 pack year history, quit 2021 Plan: 1. Mask pressure test, continuing to run 2. Ok for sample mask to help with leak control 3. Reviewed PFTs, no significant change from 2020 4. 6 months follow up This encounter was completed completely by phone call. The patient was made aware that this may be a billable service and consented to the phone call. This call lasted approximately 11 minute and more than 50% of the time was spent in direct counseling. Hanna Butcher MD Pulmonary and Sleep Medicine [facility] Past Medical, Family, and Social History Update: The following portions of the patient's history were reviewed and updated as appropriate: allergies, current medications, past family history, past medical history, past social history, past surgical history and problem list. Past Medical History: Diagnosis Date Anemia Unknown Arthritis Benign prostatic hyperplasia Cancer ([facility] [place] [place]) PROSTATE COPD (chronic obstructive pulmonary disease) ([facility] [place] [place]) Unknown Diabetes mellitus type 2, controlled ([facility] [place] [place]) GERD (gastroesophageal reflux disease) History of placement of ear tubes right ear Hyperlipidemia Hypertension Jaundice 03/30/21 FRANK (obstructive sleep apnea) cpap Visual impairment glasses Past Surgical History: Procedure Laterality Date APPENDECTOMY CHOLECYSTECTOMY 04/06/21 COLONOSCOPY 2019 FOOT SURGERY heel spur right KNEE SURGERY bilateral scope LAPAROSCOPIC EPIGASTRIC HERNIA REPAIR REPAIR ROTATOR CUFF SHOULDER Right 07/19/2020 Performed by Karsten Crowell DO at [facility] REPAIR ROTATOR CUFF SHOULDER Right 12/10/2017 Performed by Karsten Crowell DO at [facility] SHOULDER SURGERY bilateral TONSILLECTOMY 06/1970 TYMPANOSTOMY [...] needed in the evening for muscle spasms. celecoxib (CeleBREX) 200 mg [...] mg total) by mouth in the morning. lisinopriL (PRINIVIL,ZESTRIL) 5 mg tablet Take 1 tablet (5 mg total) by mouth in the morning and 1 tablet (5 mg total) before bedtime. metoprolol succinate XL (TOPROL-XL) 50 mg 24 hr tablet Take 1 tablet (50 mg total) by mouth in the morning. simvastatin (ZOCOR) 40 mg tablet Take 1 tablet (40 mg total) by mouth in the morning. No current facility-administered medications for this visit. (All medications reviewed and updated by provider since last office visit or hospitalization) Allergies: Patient has no known allergies. Tobacco History: Social History Tobacco Use Smoking Status Former Current packs/day: 0.00 Average packs/day: 3.0 packs/day for 47.2 years (141.7 ttl pk-yrs) Types: Cigarettes Start date: 1974 Quit date: 09/2021 Years since quittin.2 Smokeless Tobacco Never (If patient a smoker, smoking cessation counseling offered) Social History: Social History Substance and Sexual Activity Alcohol Use No [facility] in this encounter [facility] History of Presen t illness Narrative Images from the original note were not included. [address] [place] [address] Patient: Milad Seymour Date of : 1955 Encounter Date: 10/27/2024 History of Present Illness: The patient is a 69 y.o. male, is here for follow up of shortness of breath. Chest cold for the last 2 weeks. He is unsure how to place his shortness of breath in terms of duration but does note that it significantly changed since he was hospitalized in 2019. Believes over time he has become more short of breath and recently has noted it with less exertional capacity. He also notes that his diabetes control has been very poor recently. [] Cough [] Dry [] Productive [x] Wheeze [x] Shortness of breath - since pneumonia in 2019, progressively worse over time [] Chest pain [] Lower limb swelling Supplemental oxygen = none Pulmonary regimen: Current = None Past = Андрей , 2019 Triggers: Cigarette use = quit 2021 (> 100 pyh) Vaping / e-cigarettes = denies Second hand smoke = denies Exacerbation history = Last hospitalization = 2019 (Legionella pneumonia) Last ER / urgent care visit = > 1 year Respiratory need for antibiotics steroids = > 1 year Physical Exam: BP 114/73 (BP Site: Right Arm, BP Postition: Sitting) Pulse 79 Ht 175.3 cm (5' 9.02 ) Wt 116.8 kg (257 lb 9.6 oz) SpO2 97% BMI 38.02 kg/m General Appearance - Awake, alert, oriented, in no acute distress Neck - Supple, trachea midline Lungs - Clear Cardio = normal rhythm 2023: Assessment: 1. Obstructive sleep apnea (AHI 95.2, minimum saturation 71%, PSG 2014, weight 215 lb) currently on auto bilevel PAP 25/10 pressure support 5 cm of water with excellent compliance and benefit but increased residual AHI, likely related to leak 2. Dyspnea on exertion 3. Essential hypertension 4. Prior extensive nicotine use history, greater than 100 pack year history, quit 2021 Plan: 1. Need leak improvement to help with AHI 2. Update PFTs 3. Noted attempted CT but unable 4. Follow up in 1 month with telephone visit Hanna Butcher MD Pulmonary and Sleep Medicine [facility] Past Medical, Family, and Social History Update: The following portions of the patient's history were reviewed and updated as appropriate: allergies, current medications, past family history, past medical history, past social history, past surgical history and problem list. Past Medical History: Diagnosis Date Anemia Unknown Arthritis Benign prostatic hyperplasia Cancer (CMS-HCC) PROSTATE COPD (chronic obstructive pulmonary disease) ([facility] [place] [place]) Unknown Diabetes mellitus type 2, controlled ([facility] [place] [place]) GERD (gastroesophageal reflux disease) History of placement of ear tubes right ear Hyperlipidemia Hypertension Jaundice 03/30/21 FRANK (obstructive sleep apnea) cpap Visual impairment glasses Past Surgical History: Procedure Laterality Date APPENDECTOMY CHOLECYSTECTOMY 04/06/21 COLONOSCOPY 2019 FOOT SURGERY heel spur right KNEE SURGERY bilateral scope LAPAROSCOPIC EPIGASTRIC HERNIA REPAIR REPAIR ROTATOR CUFF SHOULDER Right 07/19/2020 Performed by Karsten Crowell DO at [facility] REPAIR ROTATOR CUFF SHOULDER Right 12/10/2017 Performed by Karsten Crowell DO at [facility] SHOULDER SURGERY bilateral TONSILLECTOMY 06/1970 TYMPANOSTOMY TUBE [...] mg total) by mouth in the morning. lisinopriL (PRINIVIL,ZESTRIL) 5 mg tablet Take 1 tablet (5 mg total) by mouth in the morning and 1 tablet (5 mg total) before bedtime. metoprolol succinate XL (TOPROL-XL) 50 mg 24 hr tablet Take 1 tablet (50 mg total) by mouth in the morning. simvastatin (ZOCOR) 40 mg tablet Take 1 tablet (40 mg total) by mouth in the morning. No current facility-administered medications for this visit. (All medications reviewed and updated by provider since last office visit or hospitalization) Allergies: Patient has no known allergies. Tobacco History: Social History Tobacco Use Smoking Status Former Current packs/day: 0.00 Average packs/day: 3.0 packs/day for 47.2 years (141.7 ttl pk-yrs) Types: Cigarettes Start date: 1974 Quit date: 09/2021 Years since quittin.1 Smokeless Tobacco Never (If patient a smoker, smoking cessation counseling offered) Social History: Social History Substance and Sexual Activity Alcohol Use No documented in this encounter [facility] 10-27-2024 Instructions Hanna Butcher MD - 10/27/2024 10:15 AM EDT 1. Need leak improvement to help with AHI 2. Update PFTs 3. Noted attempted CT but unable 4. Follow up in 1 month documented in this encounter [facility] 10-21-2024 Miscellaneous Notes Patient came in office to reschedule his appointment with KW, patient was last seen on 02/25/2024, patient no showed to his last appointment on 07/14/2024. Patient has only been seen for FRANK. Patient would like to discuss pulmonary concerns with KW. Patient is scheduled for next available of 03/09/2025 in [place] (in 30 minute slot). Patient has not completed his LDSCT due to having anxiety/panic attack of being in confined area. Patient has not had any recent chest imaging or PFTs. Please review and advise. Noted. Please have him on the cancellation list. If SOB is worse, ok to get repeat chest xray Patient stated that he has been experiencing more shortness of breath on exertion, denies wheezing and cough. Clerk Secretary called patient and informed him that YASMIN ordered a CXR to have him complete at his earliest convenience. Patient verbalized understanding. documented in this encounter [facility] 10-21-2024 Telephone encounter Note Patient came in office to reschedule his appointment with KW, patient was last seen on 02/25/2024, patient no showed to his last appointment on 07/14/2024. Patient has only been seen for FRANK. Patient would like to discuss pulmonary concerns with KW. Patient is scheduled for next available of 03/09/2025 in [place] (in 30 minute slot). Patient has not completed his LDSCT due to having anxiety/panic attack of being in confined area. Patient has not had any recent chest imaging or PFTs. Please review and advise. [facility] 10-21-2024 Telephone encounter Note Noted. Please have him on the cancellation list. If SOB is worse, ok to get repeat chest xray [facility] Work Phone: 10-21-2024 Telephone encounter Note Patient stated that he has been experiencing more shortness of breath on exertion, denies wheezing and cough. [facility] 10-21-2024 Telephone encounter Note Clerk Secretary called patient and informed him that YASMIN ordered a CXR to have him complete at his earliest convenience. Patient verbalized understanding. [facility] 09-24-2024 History of Presen t illness Narrative Images from the original note were not included. Subjective Patient ID: Darrin Seymour is a 69 y.o. male who presents for Diabetic Shoes (Established pt presents today wanting to start diabetic shoe process. Pt relates he may have to use qutenza for lower back issues. Pt also inquiring about qutenza for his neuropathy. PCP: Zoie Ross LV 07/31/24, A1C: 9.4, BS: 265). HPI Presents today to discuss several options. States his intention to pursue another pair of therapeutic footwear; but is advised that this service is too soon based on fitting of last pair; with which he is well satisfied. Also complains of persistent symptomatic dysesthesias, stinging sensations, associated with diabetic peripheral neuropathy as well as an element of lumbar radiculopathy. Has recently received injection therapy at [facility]; and is potentially scheduled for implantable neurostimulator. Qutenza patches have been advised by pain management. Medications Current Outpatient Medications: amoxicillin (Amoxil) 875 MG tablet, TAKE 1 TABLET BY MOUTH TWICE DAILY UNTIL GONE, Disp: , Rfl: ASPIRIN 81 MG chewable tablet, Chew 81 mg Daily, Disp: , Rfl: celecoxib (CeleBREX) 200 MG capsule, TAKE 1 CAPSULE BY MOUTH TWICE DAILY, Disp: 60 capsule, Rfl: 5 Continuous Glucose Sensor (Dexcom G7 Sensor) misc, USE DIRECTED to check BLOOD SUGAR *change EVERY TEN days *, Disp: 9 each, Rfl: 3 Drug [place] Unifine Pentips 31G X 5 MM misc, USE DIRECTED FOUR TIMES DAILY, Disp: 100 each, Rfl: 3 FLUoxetine (PROzac) 40 MG capsule, Take 1 capsule (40 mg) by mouth Daily, Disp: 90 capsule, Rfl: 3 gabapentin (Neurontin) 300 MG capsule, Take 300 mg by mouth in the morning and 300 mg before bedtime., Disp: , Rfl: glucose blood (OneTouch Ultra) test strip, Fsbs bid, Disp: 200 each, Rfl: 3 insulin lispro (HumaLOG) 100 UNIT/ML injection, INJECT 18 UNITS BREAKFAST/LUNCH, 35 units DINNER PLUS CORRECTIONS OF 1:30 > 150MG/DL ( MAX 100 UNITS A DAY), Disp: 90 mL, Rfl: 3 Lancets (OneTouch Delica Plus [id number]) misc, use to test BLOOD SUGAR THREE TIMES DAILY, Disp: , Rfl: lansoprazole (Prevacid) [address] capsule, lansoprazole 30 mg capsule,delayed release, Disp: , Rfl: Lantus SoloStar 100 UNIT/ML pen, INJECT 60 UNITS SUBCUTANEOUSLY AT BEDTIME, Disp: 60 mL, Rfl: 3 lisinopril 10 MG tablet, Take 1 tablet (10 mg) by mouth in the morning and 1 tablet (10 mg) before bedtime. (Patient taking differently: Take 10 mg by mouth Daily), Disp: 180 tablet, Rfl: 3 loperamide (Imodium) 2 MG capsule, TAKE 1 [...] (40 mg) by mouth at bedtime, Disp: 90 tablet, Rfl: 3 tiZANidine (Zanaflex) 4 MG tablet, Take 1 tablet (4 mg) by mouth 3 (three) times a day as needed for muscle spasms, Disp: 60 tablet, Rfl: 3 triamcinolone (Kenalog) 0.1 % cream, APPLY TO THE AFFECTED AREA(S) (PSORIASIS ON TRUNK AND ALL EXTREMITIES) DAILY NEEDED SUNDAY THROUGH SUNDAY DO NOT USE ON FACE), Disp: , Rfl: fluorometholone (FML) 0.1 % ophthalmic suspension, instill 1 (ONE) DROP IN BOTH EYES FOUR TIMES DAILY FOR 7 DAYS then instill 1 (ONE) DROP IN BOTH EYES TWICE DAILY FOR 7 DAYS (Patient not taking: Reported on 09/24/2024), Disp: , Rfl: tildrakizumab (Ilumya) 100 MG/ML injection, Inject under the skin (Patient not taking: Reported on 09/24/2024), Disp: , Rfl: Allergies Patient has no known allergies. Past Surgical History Past Surgical History: Procedure Laterality Date APPENDECTOMY 1971 CHOLECYSTECTOMY COLONOSCOPY COLONOSCOPY 2015 EGD GALLBLADDER SURGERY 03/2021 HEEL SPUR SURGERY Right 2012 Adam KNEE SURGERY x2 arthroscopy OTHER SURGICAL HISTORY 07/31/2017 RM and T-tube, Timmis OTHER SURGICAL HISTORY Right 07/2020 Right PCR ROTATOR CUFF REPAIR Bilateral [id number] Wendy Crowell ROTATOR CUFF REPAIR 04/2024 SHOULDER [...] GENERAL EXAMINATION: Alert and oriented. Pleasant disposition. Presents wearing Comfort therapeutic footwear with accommodative orthoses. FOOT EXAM: Date of Last Foot Exam: 09/24/2024 Sensory testing performed: sensations normal Sensory and [...] digits bilateral PAIN ELICITED WITH PALPATION OF: Radiology: Radiographs: 3 views left foot: Weight-bearing: DP, oblique, lateral: 05/29/2024: Unremarkable for fracture or stress fracture changes. Unremarkable for acute osseous or joint pathology. Incidental findings include os peroneum within the cuboid groove; enthesophyte formation at the 5th metatarsal styloid. Assessment/Plan Insertional calcific Achilles tendinopathy right. Xerosis with hyperkeratosis both feet. Type II diabetes/IDDM. Poorly controlled by history. Diabetic peripheral neuropathy; symptomatic. (Q9). DJD left knee Plan: Review of clinical and x-ray findings, differential diagnosis, suspected etiology and contributing/aggravating factors, treatment strategy, rationale and objectives. Encourage compliance with therapeutic footwear and accommodative orthoses. Encourage tight glycemic control. Recommend frequent emollient therapy. As noted, patient is scheduled for possible placement of implantable neurostimulator. Patient advised to pursue Qutenza patch therapy with pain management clinic. Procedure: This note was created with the assistance of a speech recognition program. While intending to generate a timely document that accurately reflects the content of the visit, no guarantee can be provided that every grammatical or spelling mistake has been or will be identified or corrected. Thank you for your understanding. Dexter Krishnamurthy DPM documented in this encounter [facility] 09-24-2024 Instructions Dexter Krishnamurthy DPM - 09/24/2024 2:45 PM EDT As noted documented in this encounter [facility] 07-31-2024 History of Presen t illness Narrative Associated Problem(s): Type 2 diabetes mellitus with diabetic polyneuropathy, with long-term current use of insulin ([facility]) During the appointment today all pertinent [...] hypotension Osteoarthritis of knee Benign essential hypertension ([facility]) Primary osteoarthritis, right shoulder Prostate cancer ([facility]) Proteinuria Hypercholesteremia ([facility]) Renal failure 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, with long-term current use of insulin ([facility]) Long-term insulin use ([facility]) Lumbar spondylosis Bilateral leg edema Encounter for long-term (current) use of medications Class 2 severe obesity due to excess calories with serious comorbidity and body mass index (BMI) of 37.0 to 37.9 in adult ([facility]) FRANK (obstructive sleep apnea) Chronic fatigue Right hand pain Hypersomnia Fasciculations Memory impairment Bilateral carpal tunnel syndrome Foot drop, right Lumbar radiculopathy Cervical radiculopathy Family history of Parkinson's disease JARAD (generalized anxiety disorder) ([facility]) Type 2 diabetes mellitus with stage 3b chronic kidney disease, with long-term current use of insulin ([facility]) ([facility]) Type 2 diabetes mellitus with hyperglycemia, with long-term current use of insulin ([facility]) Social History Tobacco Use Smoking status: [...] SOPN) Semaglutide [address] [place] [facility] HEMOGLOBIN A1C/HEMOGLOBIN.TOTAL:MFR:PT:BLD :QN: 9.4 Outpatient prescription Medication marked as long-term [...] polyneuropathy, with long-term current use of insulin ([facility]) During the appointment today all pertinent [...] (BMI) of 37.0 to 37.9 in adult ([facility]) - Primary Type 2 diabetes mellitus with stage 3b chronic kidney disease, with long-term current use of insulin ([facility]) ([facility]) Type 2 diabetes mellitus with hyperglycemia, with long-term current use of insulin ([facility]) Follow up in about 3 months [...] and 300 mg before bedtime. GLUCOSE BLOOD (WomaiUCH ULTRA) TEST STRIP Fsbs bid LANCETS (AncancoTOUCH DELICA PLUS [id number]) [facility] use to test BLOOD SUGAR THREE TIMES [...] the patient today. documented in this encounter [facility] 07-30-2024 Evaluation note Diagnosis Onset Date Resolution GERD (gastroesophageal reflux disease) acute July 30, 025 2:05pm IBS (irritable bowel syndrome) acute July 30 2:05pm [facility] Work Phone: [phone]) 196-452102-05-2025 History of Present illness Narrative* TK Cantu - 07/23/2024 9:15 AM EST Images from the original note were not included. HISTORY OF PRESENT ILLNESS: POST OP PT Milad Seymour is an 68 y.o. @ male. No surgery found s/p surgery onNo surgery found (EST PT) S/P (L) SHOULDER SCOPE 04/25/24 (12WKS 5DAYS) - DOING WELL- DISCONTINUED PT [facility] ; STATES HE IS ABLE TO DO [...] for requiring urgent evaluation. documented in this encounterColumbia Regional [id number] History of Present illness Narrative* Alma Berkowitz, [...] pillow removed. No complaints of pain. Precautions: [place] Subjective: Pt states he was consistently icing [...] to be instructed in home exercise program. Electro Mechanical Engineer Goals: To be met in 10 weeks [...] Please sign below. Date: documented in this encounterColumbia Regional [id number] History of Present illness Narrative* TK Catnu - 06/25/2024 8:45 AM EST Images from [...] for requiring urgent evaluation. documented in this encounterColumbia Regional HospitalGadofrdwig33-95-2221 History of Present illness Narrative* Alma Berkowitz, [...] pillow removed. No complaints of pain. Precautions: [place] Subjective: Pt states he has noticed a [...] to be instructed in home exercise program. Electro Mechanical Engineer Goals: To be met in 10 weeks [...] Please sign below. Date: documented in this encounterColumbia Regional HospitalAkwbkeruiu02-68-6045 History of Present illness Narrative* Justina Carrillo, [...] pillow removed. No complaints of pain. Precautions: [place] Subjective: No significant pain coming in today. [...] to be instructed in home exercise program. Custodial Goals: To be met in 10 weeks [...] Please sign below. Date: documented in this encounterColumbia Regional HospitalAzgxmmzzma65-95-1169 History of Present illness Narrative* Alma Berkowitz, [...] pillow removed. No complaints of pain. Precautions: [place] Subjective: Pt states he was a little [...] to be instructed in home exercise program. Custodial Goals: To be met in 10 weeks [...] Please sign below. Date: documented in this encounterColumbia Regional HospitalThkoorxkny24-88-2047 History of Present illness Narrative* Alma Berkowitz [...] pillow removed. No complaints of pain. Precautions: [place] Subjective: Pt states pain is minimal in [...] to be instructed in home exercise program. Custodial Goals: To be met in 10 weeks [...] Please sign below. Date: documented in this [facility]12-21-2024 Telephone encounter Note* Telephone Encounter - TK Cantu - 06/07/2024 8:34 AM EST Spoke with pt. May DC sling.. Start AROM/ PROM,. No strengthening or resistance... keep therapy going pending follow up.. pt feels he is doing well and making progress [facility] HospitalEfpjftjxel08-99-1706 Miscellaneous Notes* Telephone Encounter - TK Cantu - 06/07/2024 8:34 AM EST Spoke with pt. May DC sling.. Start AROM/ PROM,. No strengthening or resistance... keep therapy going pending follow up.. pt feels he is doing well and making progress documented in this [facility]12-17-2024 Telephone encounter Note* Telephone Encounter - Dank Campo MD - 06/03/2024 9:58 AM EST Patient left message about prozac dose. Dose increased to 40 mg last week and [facility] It will take 2-3 weeks to notice an improvement in mood and continue at 40 mg. [facility] [id number] Miscellaneous Notes* Telephone Encounter - Dank Campo MD - 06/03/2024 9:58 AM EST Patient left message about prozac dose. Dose increased to 40 mg last week and script was sent to [facility]. It will take 2-3 weeks to notice an improvement in mood and continue at 40 mg. documented in this encounterColumbia Regional HospitalJnyuhytmey48-13-0848 History of Present illness Narrative* Dexter Leon Joe, DPM - 05/29/2024 2:45 PM EST Images [...] 10 days, Disp: 9 each, Rfl: 3 [place] Unifine Pentips 31G X 5 MM misc, [...] by mouth, Disp: , Rfl: glucose blood (Luxodouch Ultra) test strip, Fsbs bid, Disp: 200 each, Rfl: 3 insulin glargine (Lantus SoloStar) 100 UNIT/ML pen, Inject 65 Units under the skin at bedtime, Disp: 60 mL, Rfl: 3 insulin lispro (HumaLOG) 100 UNIT/ML injection, INJECT 12 UNITS BREAKFAST, 25 UNITS LUNCH/ DINNER PLUS CORRECTIONS OF 1:30 > 150MG/DL ( MAX 100 UNITS A DAY), Disp: 90 mL, Rfl: 3 Lancets (Luxodouch Delica Plus [id number]) [facility] [place] [place], use to test BLOOD [...] SURGERY 03/2021 HEEL SPUR SURGERY Right 2011 [place] KNEE SURGERY x2 arthroscopy OTHER SURGICAL HISTORY 07/31/2017 RM and T-tube, Timmis OTHER SURGICAL HISTORY Right 07/2020 Right PCR ROTATOR CUFF REPAIR Bilateral [id number] Wendy Crowell ROTATOR CUFF REPAIR 04/2024 SHOULDER [...] understanding. Dexter Krishnamurthy DPM documented in this encounterColumbia Regional [id number] Instructions* Patient Instructions* Dexter Krishnamurthy DPM - 05/29/2024 2:45 PM EST As noted documented in this [facility]12-12-2024 History of Present illness Narrative* Valentine Geller, [...] pillow removed. No complaints of pain. Precautions: [place] Subjective: Pt reports he has probably using [...] to be instructed in home exercise program. Electro Mechanical Engineer Goals: To be met in 10 weeks [...] Please sign below. Date: documented in this encounterColumbia Regional HospitalJuifemzani87-46-7024 History of Present illness Narrative* Dank Campo MD - 05/28/2024 8:21 AM ESTAssociated Problem(s): Type 2 diabetes mellitus with stage 3b chronic kidney disease, with long-term current use of insulin (HCC) ([facility]) Renal function stable. Continue lisinopril and ozempic. [...] AM ESTAssociated Problem(s): JARAD (generalized anxiety disorder) ([facility]) Worsening symptoms and increase prozac. Warned will take 2-3 weeks to notice improvement in mood. Use valium PRN. * Dank Campo MD - 05/28/2024 8:18 AM ESTAssociated Problem(s): Benign essential hypertension ([facility]/HCC) BP controlled and monitor PRN. Discussed DASH [...] (PROzac) 40 MG capsule documented in this encounterColumbia Regional HospitalLdyhfagqeo71-17-8297 Telephone encounter Note* Telephone Encounter - Slime Sanches - 05/12/2024 1:40 PM EST $35.00 copay / prior-auth needed. [facility] [id number] Miscellaneous Notes* Telephone Encounter - Slime Sanches - 05/12/2024 1:40 PM EST $35.00 copay / prior-auth needed. documented in this encounterColumbia Regional HospitalJteydwxnfo46-74-1833 History of Present illness Narrative* TK Cantu [...] for requiring urgent evaluation. documented in this encounterColumbia Regional HospitalIegomlgzxg42-50-5457 Instructions* Patient Instructions* TK Cantu - 05/09/2024 [...] schedule as soon aspossible documented in this encounterColumbia Regional HospitalUhtpxcgrke47-27-2534 History of Present illness Narrative* Ashli Ross DO - 04/29/2024 11:31 AM ESTAssociated Problem(s): Type 2 diabetes mellitus with diabetic polyneuropathy, with long- term current use of insulin ([facility]) During the appointment today all pertinent [...] hypotension Osteoarthritis of knee Benign essential hypertension ([facility]/HCC) Primary osteoarthritis, right shoulder Prostate cancer ([facility]) Proteinuria Hypercholesteremia ([facility]) Renal failure 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, with long-term current use of insulin ([facility]/HCC) Long-term insulin use ([facility]) Class 2 severe obesity due to excess calories with serious comorbidity and body mass index (BMI) of35.0 to 35.9 in adult ([facility]/HCC) Lumbar spondylosis Bilateral leg edema Encounter for long-term (current) use of medications Obesity (BMI 30-39.9) FRANK (obstructive sleep apnea) Chronic fatigue Right hand pain Hypersomnia Fasciculations Memory impairment Bilateral carpal tunnel syndrome Foot drop, right Lumbar radiculopathy Cervical radiculopathy Family history of Parkinson's disease JARAD (generalized anxiety disorder) ([facility]) Type 2 diabetes mellitus with stage 3a chronic kidney disease, with long-term current use of insulin (HCC) ([facility]) Social History Tobacco Use Smoking status: [...] polyneuropathy, with long-term current use of insulin ([facility]) During the appointment today all pertinent [...] A1C) docked device (Completed) Long-term insulin use ([facility]) Class 2 severe obesity due to excess calories with serious comorbidity and body mass index (BMI) of35.0 to 35.9 in adult ([facility]) - Primary Type 2 diabetes mellitus with stage 3a chronic kidney disease, with long-term current use of insulin ([facility]) ([facility]) Follow up in about 3 months (around 07/30/2024) for Recheck. Patient's Medications New Prescriptions No medications on file Previous Medications ASPIRIN 81 MG CHEWABLE TABLET Chew 81 mg Daily CELECOXIB (CELEBREX) 200 MG CAPSULE TAKE 1 CAPSULE BY MOUTH TWICE DAILY CONTINUOUS BLOOD GLUC SENSOR (DEXCOM G7 SENSOR) MIS Inject 1 Device under the skin See administration instructions Change every 10 days CYCLOBENZAPRINE (FLEXERIL) 10 MG TABLET Take 10 mg by mouth in the morning and 10 mg in the eveningand 10 mg before bedtime. [facility] UNIFINE PENTIPS 31G X 5 MM [facility] USE DIRECTED FOUR TIMES DAILY FLUOROMETHOLONE (FML) 0.1 % OPHTHALMIC SUSPENSION instill 1 (ONE) DROP IN BOTH EYES FOUR TIMES DAILY FOR 7 DAYS then instill 1 (ONE) DROP IN BOTH EYES TWICE DAILY FOR 7 DAYS FLUOXETINE (PROZAC) 20 MG CAPSULE TAKE 1 CAPSULE BY MOUTH DAILY GABAPENTIN (NEURONTIN) 100 MG CAPSULE Take by mouth GLUCOSE BLOOD (AncancoTOUCH ULTRA) TEST STRIP Fsbs bid LANCETS (ONETOUCH DELICA PLUS [id number]) [facility] use to test BLOOD SUGAR THREE TIMES [...] with the patient today. documented in this encounterColumbia Regional HospitalDofyktsqsp81-37-1584 Telephone encounter Note* Telephone Encounter - Fredy Boswell NP - 04/24/2024 2:50 PM EST Post op pain rx. PDMP reviewed [facility] HospitalZlkiiiufgk40-75-3635 Miscellaneous Notes* Telephone Encounter - Fredy Boswell NP - 04/24/2024 2:50 PM EST Post op pain rx. PDMP reviewed documented in this encounterColumbia Regional [id number] Telephone encounter Note* Telephone Encounter - Dank Campo MD - 04/23/2024 12:24 PM EST BP very low and patient having symptoms. Decrease lisinopril to once a day and continue to monitor. [facility] HospitalXinpqxoshw33-18-2779 Miscellaneous Notes* Telephone Encounter - Dank Campo MD - 04/23/2024 12:24 PM EST BP very low and patient having symptoms. Decrease lisinopril to once a day and continue to monitor. documented in this encounterColumbia Regional HospitalAdduvelcjx63-37-3326 History of Present illness Narrative* TK Cantu [...] Hypertension (CMS/HCC) Iron Infusions on going per [facility] , Low back pain Migraine (CMS/HCC) Otitis externa Prostate cancer (CMS/HCC) 2018 radiation PVC (premature ventricular contraction) Right shoulder pain Rotator cuff tear, right 2020 Sleep apnea PAST SURGICAL HISTORY: Past Surgical History: Procedure Laterality Date APPENDECTOMY 1971 CHOLECYSTECTOMY COLONOSCOPY COLONOSCOPY 2016 EGD GALLBLADDER SURGERY 03/2021 HEEL SPUR SURGERY Right 2011 [place] KNEE SURGERY x2 arthroscopy OTHER SURGICAL HISTORY 07/31/2017 RM and T-tube, Timmis OTHER SURGICAL HISTORY Right 07/2020 Right PCR ROTATOR CUFF REPAIR Bilateral [id number] Wendy Crowell ROTATOR CUFF REPAIR SHOULDER ARTHROSCOPY [...] 10 mg, Oral, 3 times daily Drug [place] Unifine Pentips 31G X 5 MM misc USE DIRECTED FOUR TIMES DAILY fluorometholone (FML) 0.1 % ophthalmic suspension instill 1 (ONE) DROP IN BOTH EYES FOUR TIMES DAILY FOR 7 DAYS then instill 1 (ONE) DROP IN BOTH EYES TWICE DAILY FOR 7 DAYS FLUoxetine (PROZAC) 20 mg, Oral, Daily gabapentin (Neurontin) 100 MG capsule Oral glucose blood (Luxodouch Ultra) test strip Fsbs bid insulin lispro (HumaLOG) 100 UNIT/ML injection INJECT 5-10 UNITS BREAKFAST, 30 UNITS LUNCH/ DINNER PLUS CORRECTIONS OF 1:30 > 150MG/DL ( MAX 100 UNITS A DAY) Lancets (PharmiWeb SolutionsTouch Delica Plus [id number]) misc use to test BLOOD SUGAR THREE [...] SX INSTRUCTIONS GIVEN TODAY 04/08 @8:15AM - [facility] CAMPO CLEARANCE ; OBTAINED ULTRASLING GIVEN AT PRIOR APPT [facility] NOTIFIED PA APPROVED ([id number]) Follow up for 05/09 @9am w/tish in [place]. documented in this [facility]10-08-2024 Telephone encounter Note* Telephone Encounter - Jr. Johanne Hdez DO - 03/25/2024 8:05 AM EDT Case cancelled as he took aspirin and celebrex [facility] Work Phone: [phone] 872-106410-08-2024 Miscellaneous Notes* Telephone Encounter - Jr. Johanne Hdez DO - 03/25/2024 8:05 AM EDT Case cancelled as he took aspirin and celebrex * Telephone Encounter - Fredy Boswell NP - 03/24/2024 6:38 PM EDT Post op pain rx. PDMP reviewed documented in this [facility]10-07-2024 Telephone encounter Note* Telephone Encounter - Fredy Boswell NP - 03/24/2024 6:38 PM EDT Post op pain rx. PDMP reviewed [facility] HospitalNovnipdgyz10-06-0994 Telephone encounter Note* Telephone Encounter - TK Cantu - 03/18/2024 2:20 PM EDT Reviewed Pre-op labs.. Abdnormal renal function and potassium level. Labs in chart... Dr. Campo..are you willing to address? [facility] Work Phone: [phone]) [phone] Miscellaneous Notes* Telephone Encounter - TK Cantu - 03/18/2024 2:20 PM EDT Reviewed Pre-op labs.. Abdnormal renal function and potassium level. Labs in chart... Dr. Campo..are you willing to address? documented in this encounterColumbia Regional HospitalOungwmuvfy35-52-0327 History of Present illness Narrative* TK Cantu - 03/18/2024 8:30 AM EDT Images from the original note were not included. GENERAL HISTORY AND PHYSICAL: NAME: Mliad Seymour : 1955 HISTORY OF PRESENT ILLNESS: [...] Hypertension (CMS/HCC) Iron Infusions on going per [facility] , Low back pain Migraine (CMS/HCC) [...] 07/2020 Right PCR ROTATOR CUFF REPAIR Bilateral [id number] RJitendra Crowell ROTATOR CUFF REPAIR SHOULDER ARTHROSCOPY W/ [...] mg, Oral, 3 times daily PRN Drug [place] Unifine Pentips 31G X 5 MM misc USE DIRECTED FOUR TIMES DAILY fluorometholone (FML) 0.1 % ophthalmic suspension instill 1 (ONE) DROP IN BOTH EYES FOUR TIMES DAILY FOR 7 DAYS then instill 1 (ONE) DROP IN BOTH EYES TWICE DAILY FOR 7 DAYS FLUoxetine (PROZAC) 20 mg, Oral, Daily glucose blood (Luxodouch Ultra) test strip Fsbs bid insulin lispro (HumaLOG) 100 UNIT/ML injection INJECT 5-10 UNITS BREAKFAST, 30 UNITS LUNCH/ DINNER PLUS CORRECTIONS OF 1:30 > 150MG/DL ( MAX 100 UNITS A DAY) Lancets (PharmiWeb SolutionsTouch Delica Plus [id number]) [facility] use to test BLOOD [...] proposed surgeryscheduled. (L) SHOULDER SCOPE 03/25 @FOREIGN [place] INSTRUCTIONS GIVEN TODAY 03/18 @8:30AM - [place] ULTRASLING GIVEN TODAY [facility] NOTIFIED PA APPROVED ([id number]) Patient presents today for fitting of left [...] Follow up for 04/08 @9am w/tish in [place]. documented in this encounterColumbia Regional HospitalKrpqkkhhom62-98-0490 Telephone encounter Note* Telephone Encounter - Ashli Ross, - 03/17/2024 [...] visit andhe was waiting on patient assistance. [facility] HospitalKxffxsczxo74-11-3706 Miscellaneous Notes* Telephone Encounter - Ashli Ross, [...] waiting on patient assistance. documented in this encounterColumbia Regional HospitalSprspiervr58-00-6931 History of Present illness Narrative* Jr. Johanne [...] 03/03/24 XRAY CHANGE 04/30/23 CT ARTHROGRAM 07/24/23 [facility] TRIED MRI; UNABLE TO DUE TO CLAUSTROPHOBIA [...] Continuous Blood Gluc Sensor (Dexcom G7 Sensor) [facility] Device, Subcutaneous, See admin instructions, Change every 10 days cyclobenzaprine (FLEXERIL) 10 mg, Oral, 3 times daily diazePAM (VALIUM) 5 mg, Oral, 3 times daily PRN Drug [place] Unifine Pentips 31G X 5 MM [facility] USE DIRECTED FOUR TIMES DAILY fluorometholone (FML) 0.1 % ophthalmic suspension instill 1 (ONE) DROP IN BOTH EYES FOUR TIMES DAILY FOR 7 DAYS then instill 1 (ONE) DROP IN BOTH EYES TWICE DAILY FOR 7 DAYS FLUoxetine (PROZAC) 20 mg, Oral, Daily glucose blood (Luxodouch Ultra) test strip Fsbs bid insulin lispro (HumaLOG) 100 UNIT/ML injection INJECT 5-10 UNITS BREAKFAST, 25 UNITS LUNCH/ DINNER PLUS CORRECTIONS OF 1:30 > 150MG/DL ( MAX 100 UNITS A DAY) Lancets (PharmiWeb SolutionsTouch Delica Plus [id number]) [facility] use to test BLOOD [...] I am acting as scribe for Dr. Hdze/jamie, PLAN: WE have discussed (L) shoulder xrays [...] intervention. Johanne Hdez D.O. documented in this encounterColumbia Regional HospitalTxnrwcdaic34-06-0172 Miscellaneous Notes* Telephone Encounter - Olive Juárez - 02/28/2024 8:30 AM EDT PAP mask and supplies order with supportive documentation faxed to [facility] Telephone encounter Note* Telephone Encounter - Olive Juárez - 02/28/2024 8:30 AM EDT PAP mask and supplies order with supportive documentation faxed to [facility]. [facility]09-09-2024 History of Present illness Narrative* Hanna Butcher MD - 02/25/2024 10:30 AM EDT Images from the original note were not included. [address] [place] [address] Patient: Milad Seymour Date of : 1955 [...] PM 12/14/2023 12:21 AM 02/25/2024 10:00 AM [place] Sleepiness Scale Sitting and Reading 3 3 [...] Hanna Butcher MD Pulmonary and Sleep Medicine [facility] Past Medical, Family, and Social History Update: The following portions of the patient's history were reviewed and updated as appropriate: allergies, current medications, past family history, past medical history, past social history, past surgicalhistory and problem list. Past Medical History: Diagnosis Date Anemia Unknown Arthritis Benign prostatic hyperplasia Cancer ([facility]) PROSTATE COPD (chronic obstructive pulmonary disease) ([facility]) Unknown Diabetes mellitus type 2, controlled ([facility] [place]) GERD (gastroesophageal reflux disease) History of placement of ear tubes right ear Hyperlipidemia Hypertension Jaundice 03/30/21 FRANK (obstructive sleep apnea) cpap Visual impairment glasses Past Surgical History: Procedure Laterality Date APPENDECTOMY CHOLECYSTECTOMY 04/06/21 COLONOSCOPY 2019 FOOT SURGERY heel spur right KNEE SURGERY bilateral scope LAPAROSCOPIC EPIGASTRIC HERNIA REPAIR REPAIR ROTATOR CUFF SHOULDER Right 07/19/2020 Performed by Karsten Crowell DO at [facility] SUR[facility]ERY REPAIR ROTATOR CUFF SHOULDER Right 12/10/2017 Performed by Karsten Crowell DO at [facility] SURGERY SHOULDER SURGERY bilateral TONSILLECTOMY 06/1970 TYMPANOSTOMY TUBE [...] Activity Alcohol Use No documented in this encounterTuscarawas HospitalEvestra [id number] Instructions* Patient Instructions* Hanna Butcher MD - 02/25/2024 10:30 AM EDT 1. Continue with current pressure setting 2. Reviewed data download 3. LDCT for lung cancer screening 4. Follow up 4 months documented in this [facility] Telephone encounter Note* Telephone Encounter - Walt Newton - 02/04/2024 4:27 PM EDT Like self pay shoes [facility] [id number] Miscellaneous Notes* Telephone Encounter - Walt Newton - 02/04/2024 4:27 PM EDT Like self pay shoes documented in this encounterColumbia Regional [id number] Hospital Discharge instructions Patient Education 02/04/2024 12:42:37 [...] treatment? Where to find more information The [employer]: www.cancer.org [employer] U[employer] Association: www.auanet.org Contact a health care [...] provider. Document Revised: 11/28/2021 Document Reviewed: 11/28/2021 Upward Mobility Patient Education 2022 mobiDEOS. Follow Up Care 02/12/2023 10:16:19 With:NICOLA RAYMUNDO, Peterson Owens, URL Address: [facility] [address] [place] [address] [phone] When: Unknown [facility] NotePatient Education Oncology Prostate Cancer Screening [...] Where to find more information ? The [employer] Cancer [employer]: www.cancer.org ? [employer] U[employer] Association: www.auanet.org Contact a health care [...] front of the rectum. (more content not included)...[facility]07-18-2024 Miscellaneous Notes* Telephone Encounter - Oskar Contreras MD - 01/03/2024 12:57 PM EDT Patient seen by SK. Has follow up with Dr. Butcher on 02/25/2024. Probably should wait for that visit before deciding on how best to proceed with care. Titration study on 12/13/2023 (Moenth=212.0 lbs; BMI=36.9 kg/m2) DIAGNOSIS: Central Sleep Apnea [...] may also be considered. documented in this encounterTuscarawas HospitalEvestra [id number] Telephone encounter Note* Telephone Encounter - Oskar Contreras MD - 01/03/2024 12:57 PM EDT Patient seen by SK. Has follow up with Dr. Butcher on 02/25/2024. Probably should wait for that visit before deciding on how best to proceed with care. Titration study on 12/13/2023 (Uleeti=228.0 lbs; BMI=36.9 kg/m2) DIAGNOSIS: Central Sleep Apnea [...] an oxygen titration may also be considered. 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 Pt voice understanding and was very appreciative. 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 Pt voice understanding and was very appreciative. [facility]06-[facility] History of Present illness Narrative* SONNY Denis - 12/06/2023 12:43 PM EDT Discussed Ambien [address] Marmolejo for night of sleep study. Ordered. SONNY Denis 12/06/23 1245 documented in this [facility]06-19-2024 Miscellaneous Notes* Telephone Encounter - Aliza Escalera - 12/05/2023 9:58 AM EDT Pt came into office, requesting help to reach the sleep lab to get his sleep study rescheduled. States he had to leave the date he was originally schedule due to the lab at [place] being too hot. Says having hard time reaching sleep lab to r/s, so told him would send them a message to call him. Pt says willing to go to [place] or [place]. Chat sent to sleep lab Hub to contact pt at [phone]. documented in this encounterAultman [facility] Hospital06-19-2024 Telephone encounter Note* Telephone Encounter - Aliza Escalera - 12/05/2023 9:58 AM EDT Pt came into office, requesting help to reach the sleep lab to get his sleep study rescheduled. States he had to leave the date he was originally schedule due to the lab at [place] being too hot. Says having hard time reaching sleep lab to r/s, so told him would send them a message to call him. Pt says willing to go to [place] or [place]. Chat sent to sleep lab Hub to contact pt at [phone]. [facility] [id number] Miscellaneous Notes* Telephone Encounter - Aliza Escalera - 08/27/2023 10:11 AM EDT ----- Message from SONNY Denis sent at 08/24/2023 10:25 AM EST ----- EF >45% ok for ASV * Telephone Encounter - Aliza Escalera - 08/27/2023 10:11 AM EDT Noted below in sleep lab encounter and on appt desk for techs for titration appt documented in this encounterUC [facility] [id number] Telephone encounter Note* Telephone Encounter - Aliza Escalera - 08/27/2023 10:11 AM EDT ----- Message from SONNY Denis sent at 08/24/2023 10:25 AM EST ----- EF >45% ok for ASV [facility] [id number] Telephone encounter Note* Telephone Encounter - Aliza Escalera - 08/27/2023 10:11 AM EDT Noted below in sleep lab encounter and on appt desk for techs for titration appt [facility] [id number] Miscellaneous Notes* Telephone Encounter - Zoraida Rosario [...] Echo prior to titration documented in this encounterAultman [facility]03-01-2024 Telephone encounter Note* Telephone Encounter - Zoraida Rosario - 08/17/2023 9:53 AM EST 08/15 received CPAP order 08/16 Scheduled CPAP at [facility] 6 Confirmation mailed and emailed [employer] Medicare CPAP order and 08/15 [place] notes in epic With TCO2 monitoring. Please obtain baseline in supine position. 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 Cleaning supplies with soap and water. [place] Sleepiness Scale: Sitting and Reading: (!) Moderate [...] Anemia Unknown Arthritis Benign prostatic hyperplasia Cancer ([facility] [place]) PROSTATE COPD (chronic obstructive pulmonary disease) ([facility] [place]) Unknown Diabetes mellitus type 2, controlled ([facility] [place]) GERD (gastroesophageal reflux disease) History of placement [...] history of tobacco use, presenting hazards to [facility] - [place] low dose lung screenin [...] Standing Expiration Date: 08/15/2024 Order Specific Question: [facility] required diagnosis: Answer: Personal history of nicotine [...] titration Order Specific Question: Follow Up Answer: [facility] Sleep Medicine to read and follow [...] if sleepy, and to pick pulling machine operator if sleepiness occurs while driving. Above plan [...] that have escaped final proofreading. Gregoria Ralph [facility] Office: [phone] 2:57 PM on 08/15/2023 CC: MD Gregoria GONZALEZ APRN-CNP 08/16/23 [id number] documented in this encounterCentral Vermont Medical CenterPressy02-28-2024 Instructions* Patient Instructions* SONNY Denis - 08/15/2023 1:15 PM EST If you re looking for general health and wellness resources, please visit [email or web address]. documented in this encounterAultman [facility] Hospital02-15-2024 Miscellaneous Notes* Telephone Encounter - Aliza [...] still to schedule appt. documented in this encounterAultman Alliance [facility] Hospital02-15-2024 Telephone encounter Note* Telephone Encounter - Aliza Escalera - 08/02/2023 5:34 PM EST Received sleep referral from Valeria Mckeon NP. Pt is already an established pt and last saw in 2020- was recommended to follow up with KW. However he was a no show for his last 2 appt with our office. Chat to Tahmina to advise if still to schedule appt. [facility]02-12-2024 History of Present illness Narrative* Ashli Ross DO - 07/30/2023 12:53 PM ESTAssociated Problem(s): Type 2 diabetes mellitus with diabetic polyneuropathy, with long-term current use of insulin ([facility]) During the appointment today all pertinent [...] Breakfast Lunch Dinner Snacks Drinks Premade meal (Fresh [place] and dressing) (Mac and cheese) Protein shake [...] polyneuropathy, with long-term current use of insulin ([facility]) During the appointment today all pertinent [...] index (BMI) of36.0 to 36.9 in adult ([facility]) - Primary Follow up in about [...] ( MAX 100 UNITS A DAY) LANCETS (AncancoTOUCH DELICA PLUS [id number]) MIS use to test BLOOD SUGAR THREE TIMES [...] BLOOD GLUC SENSOR (FREESTYLE CORNELIUS 2 SENSOR) [facility] Use as directed LOPERAMIDE (IMODIUM) 2 MG CAPSULE Take 2 mg by mouth in the morning and 2 mg before bedtime. METHOCARBAMOL (ROBAXIN) 750 MG TABLET Take 1 tablet (750 mg) by mouth in the morning and 1 tablet (750 mg) at noon and 1 tablet (750 mg) in the evening and 1 tablet (750 mg) before bedtime. documented in this encounterColumbia Regional [id number] Procedure [facility]10-24-2023 Evaluation note* Encounter Date Diagnosis Assessment Notes Treatment Notes Treatment Clinical Notes Mar, GERD (gastroesophageal reflux disease) (ICD-10 - K21.9) The patient continues to complain of ongoing regurgitation. He is taking Lansoprazole 30 mg dialy & we will increase this to 30 mg bid. Mar, Hemorrhoids (ICD-10 - K64.9) Mar, Alternating constipation and diarrhea (ICD-10 - R19.8) [facility] Other 10-03-2023 Evaluation note* Encounter Date Diagnosis Assessment Notes Treatment Notes Treatment Clinical Notes Mar, Gastroesophageal ref lux disease with esophagitis (ICD-10 - K21.0) [facility] Other 08-28-2023 Hospital Discharge instructions Patient Education [...] greater thelikelihood that the cancer will spread. [place] 6 or lower: This indicates that the cancer cells look similar to normal prostate cells (well differentiated). [place] 7: This indicates that the cancer cells [...] stress of having cancer. General instructions Take obgh-oep-xvccitk and prescription medicines only as told by your health care provider. If you have to go to the hospital, notify your cancer specialist (oncologist). Keep all follow-up visits. This is important. Where to find more information [employer] Cancer Society: www.cancer.org Irish Society of Clinical Oncology: www.cancer.net National Cancer [place]: www.cancer.gov Contact a health care provider if: [...] provider. Document Revised: 08/31/2021 Document Reviewed: 08/31/2021 Upward Mobility Patient Education 2022 mobiDEOS. Follow Up Care 02/03/2022 09:06:37 With:NICOLA RAYMUNDO, Peterson Owens, URL Address: [facility] [address] [place] [phone] When: Unknown Comments:1 yr w/ PSA [facility] 04-05-2023 Evaluation note* Encounter Date Diagnosis Assessment Notes Treatment Notes Treatment Clinical Notes Sep, Gastroesophageal ref lux disease with esophagitis (ICD-10 - K21.0) [facility] Other 02-06-2023 [facility] Evaluation note* Encounter Date Diagnosis Assessment Notes Treatment Notes Treatment Clinical Notes Jul, Diarrhea (ICD-10 - R19.7) Jul, GERD (gastroesophageal reflux disease) (ICD-10 - K21.9) Jul, Hemorrhoids (ICD-10 - K64.9) PATIENT TO START ANUSOL CREAM USE SITZ BATH NEEDED Jul, Dysphagia (ICD-10 - R13.10) [facility] Other 10-28-2022 NotePROCEDURE: XR FOOT RT MIN 3 VIEWS COMPARISON: None. HISTORY: Pain in right foot FINDINGS: BONES:No acute fracture or dislocation. Persistent hammertoe deformities. Moderate hallux valgus. 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 Bulky enthesopathic spurring of the calcaneus SOFT TISSUES:Negative. No visible soft tissue swelling. EFFUSION:None visible. OTHER: Negative. IMPRESSION: Degenerative changes Electronically authenticated by: SORIN SHORE Date: 2022-04-14 18:01[facility]08-19-2022 Hospital Discharge instructions Patient Education 02/03/2022 08:55:56 [...] urethra. Follow these instructions at home: Take xwgc-lph-rzndjtq and prescription medicines only as told by [...] 06/04/2006 Document Revised: 04/29/2019 Document Reviewed: 07/09/2017 Upward Mobility Patient Education 2020 mobiDEOS. Follow Up Care 08/05/2021 10:59:30 With:NICOLA RAYMUNDO, Peterson Owens, URL Address: [facility] [address] [place] [address]- When:1 year Comments:W/ PSA [facility] 08-17-2021 NoteHNO ID: [id number] Author: Fawad Diaz MD Service: ? Author [...] MD cc: Dank Campo MD (DrC) [address] [place] [address] Dr. Petersen Portions of the above note extracted and edited from previous visit as well as active information included in the EMR.[facility] 11-04-2020 NoteHNO ID: [id number] Author: Fawad Diaz MD Service: ? Author Type: Physician Type: Progress Notes Filed: 11/04/2020 9:44 AM Note Text: Radiation Oncology - Follow Up Note PATIENT NAME: Milad Seymour PATIENT DIAGNOSIS: DIAGNOSIS: Prostate adenocarcinoma, initial PSA 14.65, biopsy [place] score 3 + 3 = 6 (grade [...] MD cc: Dank Campo MD ([facility]) [address] [place] [address] Dr. PetersenHenry County HospitalEvaluation + Plan note Future Appointments Appointment Date:02/12/2023 09:15:00 AM Scheduled Provider:Peterson PETERSEN MD Location:[facility] Appointment Type:URO Office Visit Diagnostic Tests Pending * PSA Total 02/03/22 [facility] evaluation + Plan note Future Appointments Appointment Date:02/12/2023 09:15:00 AM Scheduled Provider:Peterson PETERSEN MD Location:[facility] Appointment Type:URO Office Visit [facility] evaluation + Plan note Future Appointments Appointment Date:02/15/2024 08:15:00 AM Scheduled Provider:Peterson PETERSEN MD Location:[facility] Appointment Type:URO Office Visit Diagnostic Tests Pending * PSA Total 02/12/23 [facility] evaluation + Plan note Future Appointments Appointment Date:02/04/2024 11:30:00 AM Scheduled Provider:Peterson PETERSEN MD Location:[facility] Appointment Type:URO Office Visit [facility] evaluation + Plan note Future Appointments Appointment Date:02/09/2025 08:45:00 AM Scheduled Provider:Peterson PETERSEN MD Location:[facility] Appointment Type:URO Office Visit Diagnostic Tests Pending * PSA Total 02/04/24 [facility] evaluation noteNo assessment information available [facility] Work Phone: evaluation noteNo InformationNort [employer] Other Evaluvnvay note* Diagnosis Class 2 severe obesity due to excess calories with serious comorbidity and body mass index (BMI) of 36.0 to 36.9 in adult ([facility])- Primary Type 2 diabetes mellitus with diabetic polyneuropathy, with long-term current use of insulin ([facility]) documented in this encounter [facility] HealthcareEvaluation note* Diagnosis Onset Date Resolution Status H/O rotator cuff surgery acu te [facility] Work Phone: Evaluation note* Diagnosis Onset Date Resolution Status Diarrhea acute GERD (gastroesophageal reflux disease) acute [facility] Work Phone: evaluation note* Diagnosis Preop examination- Primary Unspecified pre-operative examination documented in this encounter [facility] HealthcareEvaluation note* Diagnosis Internal derangement of left shoulder- Primary documented in this encounter [facility] HealthcareEvaluation note* Diagnosis Type 2 diabetes mellitus with diabetic polyneuropathy, with long-term current use of insulin ([facility])- Primary Class 2 severe obesity due to excess calories with serious comorbidity and body mass index (BMI) of 35.0 to 35.9 in adult ([facility])- Primary Type 2 diabetes mellitus with diabetic polyneuropathy, with long-term current use of insulin ([facility]) Long-term insulin use [facility] Lumbar spondylosis- Primary Lumbosacral spondylosis without myelopathy Benign essential hypertension ([facility]) Essential hypertension, benign Bilateral leg edema Edema Class 2 severe obesity due to excess calories with serious comorbidity and body mass index (BMI) of 36.0 to 36.9 in adult ([facility])- Primary Type 2 diabetes mellitus with diabetic polyneuropathy, with long-term current use of insulin ([facility]) Benign essential hypertension ([facility])- Primary Essential hypertension, benign Lumbar spondylosis Lumbosacral spondylosis without myelopathy Bilateral leg edema Edema Type 2 diabetes mellitus with diabetic polyneuropathy, with long-term current use of insulin ([facility]) Hypercholesteremia ([facility]) Pure hypercholesterolemia Encounter for long-term (current) use of medications Encounter for long-term (current) use of other medications Obesity (BMI 30-39.9) Body mass index [BMI] 36.0-36.9, adult (Z68.36) JARAD (generalized anxiety disorder) ([facility])- Primary Generalized anxiety disorder Benign essential hypertension ([facility]) Essential hypertension, benign Class 2 severe obesity due to excess calories with serious comorbidity and body mass index (BMI) of 35.0 to 35.9 in adult ([facility])- Primary Type 2 diabetes mellitus with diabetic polyneuropathy, with long-term current use of insulin ([facility]) Long-term insulin use ([facility]) Benign essential hypertension ([facility])- Primary Essential hypertension, benign JARAD (generalized anxiety disorder) ([facility]) Generalized anxiety disorder Bilateral leg edema Edema Lumbar spondylosis Lumbosacral spondylosis without myelopathy Benign essential hypertension ([facility])- Primary Essential hypertension, benign JARAD (generalized anxiety disorder) ([facility]) Generalized anxiety disorder Lumbar spondylosis Lumbosacral spondylosis without myelopathy Bilateral leg edema Edema Prostate cancer ([facility]) Malignant neoplasm of prostate Type 2 diabetes mellitus with hyperglycemia, with long-term current use of insulin ([facility]) Class 2 severe obesity due to excess calories with serious comorbidity and body mass index (BMI) of 35.0 to 35.9 in adult ([facility])- Primary Type 2 diabetes mellitus with hyperglycemia, with long-term current use of insulin ([facility]) Type 2 diabetes mellitus with diabetic polyneuropathy, with long-term current use of insulin ([facility]) Long-term insulin use ([facility]) Type 2 diabetes mellitus with stage 3a chronic kidney disease, with long-term current use of insulin ([facility]) ([facility]) Pre-op examination- Primary Preop examination Unspecified pre-operative examination documented in this encounter [facility] HealthcareEvaluation note* Diagnosis Type 2 diabetes mellitus with diabetic polyneuropathy, with long-term current use of insulin ([facility])- Primary Class 2 severe obesity due to excess calories with serious comorbidity and body mass index (BMI) of 35.0 to 35.9 in adult ([facility])- Primary Type 2 diabetes mellitus with diabetic polyneuropathy, with long-term current use of insulin ([facility]) Long-term insulin use ([facility]) Lumbar spondylosis- Primary Lumbosacral spondylosis without myelopathy Benign essential hypertension ([facility]) Essential hypertension, benign Bilateral leg edema Edema Class 2 severe obesity due to excess calories with serious comorbidity and body mass index (BMI) of 36.0 to 36.9 in adult ([facility])- Primary Type 2 diabetes mellitus with diabetic polyneuropathy, with long-term current use of insulin ([facility]) Benign essential hypertension ([facility])- Primary Essential hypertension, benign Lumbar spondylosis Lumbosacral spondylosis without myelopathy Bilateral leg edema Edema Type 2 diabetes mellitus with diabetic polyneuropathy, with long-term current use of insulin ([facility]) Hypercholesteremia ([facility]) Pure hypercholesterolemia Encounter for long-term (current) use of medications Encounter for long-term (current) use of other medications Obesity (BMI 30-39.9) Body mass index [BMI] 36.0-36.9, adult (Z68.36) JARAD (generalized anxiety disorder) ([facility])- Primary Generalized anxiety disorder Benign essential hypertension ([facility]) Essential hypertension, benign Class 2 severe obesity due to excess calories with serious comorbidity and body mass index (BMI) of 35.0 to 35.9 in adult ([facility])- Primary Type 2 diabetes mellitus with diabetic polyneuropathy, with long-term current use of insulin ([facility]) Long-term insulin use ([facility]) Benign essential hypertension (CMS/HCC)- Primary Essential hypertension, benign JARAD (generalized anxiety disorder) ([facility]) Generalized anxiety disorder Bilateral leg edema Edema Lumbar spondylosis Lumbosacral spondylosis without myelopathy Benign essential hypertension (CMS/HCC)- Primary Essential hypertension, benign JARAD (generalized anxiety disorder) ([facility]) Generalized anxiety disorder Lumbar spondylosis Lumbosacral spondylosis without myelopathy Bilateral leg edema Edema Prostate cancer ([facility]) Malignant neoplasm of prostate Type 2 diabetes mellitus with hyperglycemia, with long-term current use of insulin ([facility]) Class 2 severe obesity due to excess calories with serious comorbidity and body mass index (BMI) of 35.0 to 35.9 in adult ([facility])- Primary Type 2 diabetes mellitus with hyperglycemia, with long-term current use of insulin ([facility]) Type 2 diabetes mellitus with diabetic polyneuropathy, with long-term current use of insulin ([facility]) Long-term insulin use ([facility]) Type 2 diabetes mellitus with stage 3a chronic kidney disease, with long-term current use of insulin ([facility]) ([facility]) Essential (primary) hypertension ([facility]) Unspecified essential hypertension documented in this encounter [facility] HealthcareEvaluation note* Diagnosis Type 2 diabetes mellitus with diabetic polyneuropathy, with long-term current use of insulin ([facility])- Primary Class 2 severe obesity due to excess calories with serious comorbidity and body mass index (BMI) of 35.0 to 35.9 in adult ([facility])- Primary Type 2 diabetes mellitus with diabetic polyneuropathy, with long-term current use of insulin ([facility]) Long-term insulin use ([facility]) Lumbar spondylosis- Primary Lumbosacral spondylosis without myelopathy Benign essential hypertension ([facility]) Essential hypertension, benign Bilateral leg edema Edema Class 2 severe obesity due to excess calories with serious comorbidity and body mass index (BMI) of 36.0 to 36.9 in adult ([facility])- Primary Type 2 diabetes mellitus with diabetic polyneuropathy, with long-term current use of insulin ([facility]) Benign essential hypertension ([facility]/HCC)- Primary Essential hypertension, benign Lumbar spondylosis Lumbosacral spondylosis without myelopathy Bilateral leg edema Edema Type 2 diabetes mellitus with diabetic polyneuropathy, with long-term current use of insulin ([facility]) Hypercholesteremia ([facility]) Pure hypercholesterolemia Encounter for long-term (current) use of medications Encounter for long-term (current) use of other medications Obesity (BMI 30-39.9) Body mass index [BMI] 36.0-36.9, adult (Z68.36) JARAD (generalized anxiety disorder) ([facility])- Primary Generalized anxiety disorder Benign essential hypertension ([facility]) Essential hypertension, benign Class 2 severe obesity due to excess calories with serious comorbidity and body mass index (BMI) of 35.0 to 35.9 in adult ([facility])- Primary Type 2 diabetes mellitus with diabetic polyneuropathy, with long-term current use of insulin ([facility]) Long-term insulin use ([facility]) Benign essential hypertension ([facility])- Primary Essential hypertension, benign JARAD (generalized anxiety disorder) ([facility]) Generalized anxiety disorder Bilateral leg edema Edema Lumbar spondylosis Lumbosacral spondylosis without myelopathy Benign essential hypertension ([facility])- Primary Essential hypertension, benign JARAD (generalized anxiety disorder) ([facility]) Generalized anxiety disorder Lumbar spondylosis Lumbosacral spondylosis without myelopathy Bilateral leg edema Edema Prostate cancer ([facility]) Malignant neoplasm of prostate Type 2 diabetes mellitus with hyperglycemia, with long-term current use of insulin ([facility]) Class 2 severe obesity due to excess calories with serious comorbidity and body mass index (BMI) of 35.0 to 35.9 in adult ([facility])- Primary Type 2 diabetes mellitus with hyperglycemia, with long-term current use of insulin ([facility]) Type 2 diabetes mellitus with diabetic polyneuropathy, with long-term current use of insulin ([facility]) Long-term insulin use ([facility]) Type 2 diabetes mellitus with stage 3a chronic kidney disease, with long-term current use of insulin ([facility]) ([facility]) Internal derangement of left shoulder- Primary Type 2 diabetes mellitus with diabetic polyneuropathy, with long-term current use of insulin ([facility]) documented in this encounter [facility] HealthcareEvaluation note* Diagnosis Type 2 diabetes mellitus with diabetic polyneuropathy, with long-term current use of insulin ([facility])- Primary Class 2 severe obesity due to excess calories with serious comorbidity and body mass index (BMI) of 35.0 to 35.9 in adult ([facility])- Primary Type 2 diabetes mellitus with diabetic polyneuropathy, with long-term current use of insulin ([facility]) Long-term insulin use ([facility]) Lumbar spondylosis- Primary Lumbosacral spondylosis without myelopathy Benign essential hypertension ([facility]) Essential hypertension, benign Bilateral leg edema Edema Class 2 severe obesity due to excess calories with serious comorbidity and body mass index (BMI) of 36.0 to 36.9 in adult ([facility])- Primary Type 2 diabetes mellitus with diabetic polyneuropathy, with long-term current use of insulin ([facility]) Benign essential hypertension ([facility])- Primary Essential hypertension, benign Lumbar spondylosis Lumbosacral spondylosis without myelopathy Bilateral leg edema Edema Type 2 diabetes mellitus with diabetic polyneuropathy, with long-term current use of insulin ([facility]) Hypercholesteremia ([facility]) Pure hypercholesterolemia Encounter for long-term (current) use of medications Encounter for long-term (current) use of other medications Obesity (BMI 30-39.9) Body mass index [BMI] 36.0-36.9, adult (Z68.36) JARAD (generalized anxiety disorder) ([facility])- Primary Generalized anxiety disorder Benign essential hypertension ([facility]) Essential hypertension, benign Class 2 severe obesity due to excess calories with serious comorbidity and body mass index (BMI) of 35.0 to 35.9 in adult ([facility])- Primary Type 2 diabetes mellitus with diabetic polyneuropathy, with long-term current use of insulin ([facility]) Long[facility]term insulin use ([facility]) Benign essential hypertension ([facility])- Primary Essential hypertension, benign JARAD (generalized anxiety disorder) ([facility]) Generalized anxiety disorder Bilateral leg edema Edema Lumbar spondylosis Lumbosacral spondylosis without myelopathy Benign essential hypertension ([facility])- Primary Essential hypertension, benign JARAD (generalized anxiety disorder) ([facility]) Generalized anxiety disorder Lumbar spondylosis Lumbosacral spondylosis without myelopathy Bilateral leg edema Edema Prostate cancer ([facility]) Malignant neoplasm of prostate Type 2 diabetes mellitus with hyperglycemia, with long-term current use of insulin ([facility]) Class 2 severe obesity due to excess calories with serious comorbidity and body mass index (BMI) of 35.0 to 35.9 in adult ([facility])- Primary Type 2 diabetes mellitus with hyperglycemia, with long-term current use of insulin (CMS/HCC) Type 2 diabetes mellitus with diabetic polyneuropathy, with long-term current use of insulin (CMS/HCC) Long-term insulin use ([facility]) Type 2 diabetes mellitus with stage 3a chronic kidney disease, with long-term current use of insulin (HCC) ([facility]) Class 2 severe obesity due to excess calories with serious comorbidity and body mass index (BMI) of 35.0 to 35.9 in adult ([facility])- Primary Type 2 diabetes mellitus with diabetic polyneuropathy, with long-term current use of insulin ([facility]) Type 2 diabetes mellitus with stage 3a chronic kidney disease, with long-term current use of insulin (HCC) ([facility]) Long-term insulin use ([facility]) documented in this encounter [facility] HealthcareEvaluation note* Diagnosis Type 2 diabetes mellitus with diabetic polyneuropathy, with long-term current use of insulin (CMS/HCC)- Primary Class 2 severe obesity due to excess calories with serious comorbidity and body mass index (BMI) of 35.0 to 35.9 in adult ([facility])- Primary Type 2 diabetes mellitus with diabetic polyneuropathy, with long-term current use of insulin ([facility]) Long-term insulin use ([facility]) Lumbar spondylosis- Primary Lumbosacral spondylosis without myelopathy Benign essential hypertension ([facility]) Essential hypertension, benign Bilateral leg edema Edema Class 2 severe obesity due to excess calories with serious comorbidity and body mass index (BMI) of 36.0 to 36.9 in adult ([facility])- Primary Type 2 diabetes mellitus with diabetic polyneuropathy, with long-term current use of insulin ([facility]) Benign essential hypertension ([facility])- Primary Essential hypertension, benign Lumbar spondylosis Lumbosacral spondylosis without myelopathy Bilateral leg edema Edema Type 2 diabetes mellitus with diabetic polyneuropathy, with long-term current use of insulin ([facility]) Hypercholesteremia ([facility]) Pure hypercholesterolemia Encounter for long-term (current) use of medications Encounter for long-term (current) use of other medications Obesity (BMI 30-39.9) Body mass index [BMI] 36.0-36.9, adult (Z68.36) JARAD (generalized anxiety disorder) ([facility])- Primary Generalized anxiety disorder Benign essential hypertension ([facility]) Essential hypertension, benign Class 2 severe obesity due to excess calories with serious comorbidity and body mass index (BMI) of 35.0 to 35.9 in adult ([facility])- Primary Type 2 diabetes mellitus with diabetic polyneuropathy, with long-term current use of insulin ([facility]) Long-term insulin use ([facility]) Benign essential hypertension ([facility])- Primary Essential hypertension, benign JARAD (generalized anxiety disorder) ([facility]) Generalized anxiety disorder Bilateral leg edema Edema Lumbar spondylosis Lumbosacral spondylosis without myelopathy Benign essential hypertension ([facility])- Primary Essential hypertension, benign JARAD (generalized anxiety disorder) ([facility]) Generalized anxiety disorder Lumbar spondylosis Lumbosacral spondylosis without myelopathy Bilateral leg edema Edema Prostate cancer ([facility]) Malignant neoplasm of prostate Type 2 diabetes mellitus with hyperglycemia, with long-term current use of insulin ([facility]) Class 2 severe obesity due to excess calories with serious comorbidity and body mass index (BMI) of 35.0 to 35.9 in adult ([facility])- Primary Type 2 diabetes mellitus with hyperglycemia, with long-term current use of insulin ([facility]) Type 2 diabetes mellitus with diabetic polyneuropathy, with long-term current use of insulin ([facility]) Long-term insulin use ([facility]) Type 2 diabetes mellitus with stage 3a chronic kidney disease, with long-term current use of insulin ([facility]) ([facility]) Class 2 severe obesity due to excess calories with serious comorbidity and body mass index (BMI) of 35.0 to 35.9 in adult ([facility])- Primary Type 2 diabetes mellitus with diabetic polyneuropathy, with long-term current use of insulin ([facility]) Type 2 diabetes mellitus with stage 3a chronic kidney disease, with long-term current use of insulin (HCC) ([facility]) Long-term insulin use ([facility]) S/P arthroscopy of left shoulder- Primary documented in this encounter [facility] HealthcareEvaluation note* Diagnosis Type 2 diabetes mellitus with diabetic polyneuropathy, with long-term current use of insulin ([facility])- Primary Class 2 severe obesity due to excess calories with serious comorbidity and body mass index (BMI) of 35.0 to 35.9 in adult ([facility])- Primary Type 2 diabetes mellitus with diabetic polyneuropathy, with long-term current use of insulin ([facility]) Long-term insulin use ([facility]) Lumbar spondylosis- Primary Lumbosacral spondylosis without myelopathy Benign essential hypertension ([facility]) Essential hypertension, benign Bilateral leg edema Edema Class 2 severe obesity due to excess calories with serious comorbidity and body mass index (BMI) of 36.0 to 36.9 in adult ([facility])- Primary Type 2 diabetes mellitus with diabetic polyneuropathy, with long-term current use of insulin ([facility]) Benign essential hypertension ([facility])- Primary Essential hypertension, benign Lumbar spondylosis Lumbosacral spondylosis without myelopathy Bilateral leg edema Edema Type 2 diabetes mellitus with diabetic polyneuropathy, with long-term current use of insulin ([facility]) Hypercholesteremia ([facility]) Pure hypercholesterolemia Encounter for long-term (current) use of medications Encounter for long-term (current) use of other medications Obesity (BMI 30-39.9) Body mass index [BMI] 36.0-36.9, adult (Z68.36) JARAD (generalized anxiety disorder) ([facility])- Primary Generalized anxiety disorder Benign essential hypertension ([facility]) Essential hypertension, benign Class 2 severe obesity due to excess calories with serious comorbidity and body mass index (BMI) of 35.0 to 35.9 in adult ([facility])- Primary Type 2 diabetes mellitus with diabetic polyneuropathy, with long-term current use of insulin ([facility]) Long[facility]term insulin use ([facility]) Benign essential hypertension ([facility])- Primary Essential hypertension, benign JARAD (generalized anxiety disorder) ([facility]) Generalized anxiety disorder Bilateral leg edema Edema Lumbar spondylosis Lumbosacral spondylosis without myelopathy Benign essential hypertension ([facility])- Primary Essential hypertension, benign JARAD (generalized anxiety disorder) ([facility]) Generalized anxiety disorder Lumbar spondylosis Lumbosacral spondylosis without myelopathy Bilateral leg edema Edema Prostate cancer ([facility]) Malignant neoplasm of prostate Type 2 diabetes mellitus with hyperglycemia, with long-term current use of insulin ([facility]) Class 2 severe obesity due to excess calories with serious comorbidity and body mass index (BMI) of 35.0 to 35.9 in adult ([facility])- Primary Type 2 diabetes mellitus with hyperglycemia, with long-term current use of insulin ([facility]) Type 2 diabetes mellitus with diabetic polyneuropathy, with long-term current use of insulin ([facility]) Long-term insulin use ([facility]) Type 2 diabetes mellitus with stage 3a chronic kidney disease, with long-term current use of insulin ([facility]) ([facility]) Class 2 severe obesity due to excess calories with serious comorbidity and body mass index (BMI) of 35.0 to 35.9 in adult ([facility])- Primary Type 2 diabetes mellitus with diabetic polyneuropathy, with long-term current use of insulin ([facility]) Type 2 diabetes mellitus with stage 3a chronic kidney disease, with long-term current use of insulin ([facility]) ([facility]) Long-term insulin use ([facility]) S/P arthroscopy of left shoulder- Primary documented in this encounter [facility] HealthcareEvaluation note* Diagnosis Type 2 diabetes mellitus with diabetic polyneuropathy, with long-term current use of insulin ([facility])- Primary Class 2 severe obesity due to excess calories with serious comorbidity and body mass index (BMI) of 35.0 to 35.9 in adult ([facility])- Primary Type 2 diabetes mellitus with diabetic polyneuropathy, with long-term current use of insulin ([facility]) Long-term insulin use ([facility]) Lumbar spondylosis- Primary Lumbosacral spondylosis without myelopathy Benign essential hypertension ([facility]) Essential hypertension, benign Bilateral leg edema Edema Class 2 severe obesity due to excess calories with serious comorbidity and body mass index (BMI) of 36.0 to 36.9 in adult ([facility])- Primary Type 2 diabetes mellitus with diabetic polyneuropathy, with long-term current use of insulin ([facility]) Benign essential hypertension ([facility])- Primary Essential hypertension, benign Lumbar spondylosis Lumbosacral spondylosis without myelopathy Bilateral leg edema Edema Type 2 diabetes mellitus with diabetic polyneuropathy, with long-term current use of insulin ([facility]) Hypercholesteremia ([facility]) Pure hypercholesterolemia Encounter for long-term (current) use of medications Encounter for long-term (current) use of other medications Obesity (BMI 30-39.9) Body mass index [BMI] 36.0-36.9, adult (Z68.36) JARAD (generalized anxiety disorder) ([facility])- Primary Generalized anxiety disorder Benign essential hypertension ([facility]) Essential hypertension, benign Class 2 severe obesity due to excess calories with serious comorbidity and body mass index (BMI) of 35.0 to 35.9 in adult ([facility])- Primary Type 2 diabetes mellitus with diabetic polyneuropathy, with long-term current use of insulin ([facility]) Long[facility]term insulin use ([facility]) Benign essential hypertension ([facility])- Primary Essential hypertension, benign JARAD (generalized anxiety disorder) ([facility]) Generalized anxiety disorder Bilateral leg edema Edema Lumbar spondylosis Lumbosacral spondylosis without myelopathy Benign essential hypertension ([facility] [facility])- Primary Essential hypertension, benign JARAD (generalized anxiety disorder) ([facility]) Generalized anxiety disorder Lumbar spondylosis Lumbosacral spondylosis without myelopathy Bilateral leg edema Edema Prostate cancer ([facility]) Malignant neoplasm of prostate Type 2 diabetes mellitus with hyperglycemia, with long-term current use of insulin ([facility]) Class 2 severe obesity due to excess calories with serious comorbidity and body mass index (BMI) of 35.0 to 35.9 in adult ([facility])- Primary Type 2 diabetes mellitus with hyperglycemia, with long-term current use of insulin ([facility]) Type 2 diabetes mellitus with diabetic polyneuropathy, with long-term current use of insulin ([facility]) Long-term insulin use ([facility]) Type 2 diabetes mellitus with stage 3a chronic kidney disease, with long-term current use of insulin ([facility]) ([facility]) Class 2 severe obesity due to excess calories with serious comorbidity and body mass index (BMI) of 35.0 to 35.9 in adult ([facility])- Primary Type 2 diabetes mellitus with diabetic polyneuropathy, with long-term current use of insulin ([facility]) Type 2 diabetes mellitus with stage 3a chronic kidney disease, with long-term current use of insulin ([facility]) ([facility]) Long-term insulin use ([facility]) S/P arthroscopy of left shoulder- Primary [facility] Diagnosis Type 2 diabetes mellitus with diabetic polyneuropathy, with long-term current use of insulin ([facility])- Primary Class 2 severe obesity due to excess calories with serious comorbidity and body mass index (BMI) of 35.0 to 35.9 in adult ([facility])- Primary Type 2 diabetes mellitus with diabetic polyneuropathy, with long-term current use of insulin ([facility]) Long-term insulin use ([facility]) Lumbar spondylosis- Primary Lumbosacral spondylosis without myelopathy Benign essential hypertension ([facility]) Essential hypertension, benign Bilateral leg edema Edema Class 2 severe obesity due to excess calories with serious comorbidity and body mass index (BMI) of 36.0 to 36.9 in adult ([facility])- Primary Type 2 diabetes mellitus with diabetic polyneuropathy, with long-term current use of insulin ([facility]) Benign essential hypertension ([facility])- Primary Essential hypertension, benign Lumbar spondylosis Lumbosacral spondylosis without myelopathy Bilateral leg edema Edema Type 2 diabetes mellitus with diabetic polyneuropathy, with long-term current use of insulin ([facility]) Hypercholesteremia ([facility]) Pure hypercholesterolemia Encounter for long-term (current) use of medications Encounter for long-term (current) use of other medications Obesity (BMI 30-39.9) Body mass index [BMI] 36.0-36.9, adult (Z68.36) JARAD (generalized anxiety disorder) ([facility])- Primary Generalized anxiety disorder Benign essential hypertension ([facility]) Essential hypertension, benign Class 2 severe obesity due to excess calories with serious comorbidity and body mass index (BMI) of 35.0 to 35.9 in adult ([facility])- Primary Type 2 diabetes mellitus with diabetic polyneuropathy, with long-term current use of insulin ([facility]) Long[facility]term insulin use ([facility]) Benign essential hypertension ([facility])- Primary Essential hypertension, benign JARAD (generalized anxiety disorder) ([facility]) Generalized anxiety disorder Bilateral leg edema Edema Lumbar spondylosis Lumbosacral spondylosis without myelopathy Benign essential hypertension ([facility])- Primary Essential hypertension, benign JARAD (generalized anxiety disorder) ([facility]) Generalized anxiety disorder Lumbar spondylosis Lumbosacral spondylosis without myelopathy Bilateral leg edema Edema Prostate cancer ([facility]) Malignant neoplasm of prostate Type 2 diabetes mellitus with hyperglycemia, with long-term current use of insulin ([facility]) Class 2 severe obesity due to excess calories with serious comorbidity and body mass index (BMI) of 35.0 to 35.9 in adult ([facility])- Primary Type 2 diabetes mellitus with hyperglycemia, with long-term current use of insulin ([facility]) Type 2 diabetes mellitus with diabetic polyneuropathy, with long-term current use of insulin ([facility]) Long-term insulin use ([facility]) Type 2 diabetes mellitus with stage 3a chronic kidney disease, with long-term current use of insulin ([facility]) ([facility]) Class 2 severe obesity due to excess calories with serious comorbidity and body mass index (BMI) of 35.0 to 35.9 in adult ([facility])- Primary Type 2 diabetes mellitus with diabetic polyneuropathy, with long-term current use of insulin ([facility]) Type 2 diabetes mellitus with stage 3a chronic kidney disease, with long-term current use of insulin ([facility]) ([facility]) Long-term insulin use ([facility]) S/P arthroscopy of left shoulder- Primary Left shoulder pain, unspecified chronicity documented [facility]* Diagnosis Internal derangement of left shoulder- Primary Acute pain of left shoulder documented in this encounter [facility]* Diagnosis Type 2 diabetes mellitus with diabetic polyneuropathy, with long-term current use of insulin ([facility])- Primary Class 2 severe obesity due to excess calories with serious comorbidity and body mass index (BMI) of 35.0 to 35.9 in adult ([facility])- Primary Type 2 diabetes mellitus with diabetic polyneuropathy, with long-term current use of insulin ([facility]) Long-term insulin use ([facility]) Lumbar spondylosis- Primary Lumbosacral spondylosis without myelopathy Benign essential hypertension ([facility]) Essential hypertension, benign Bilateral leg edema Edema Class 2 severe obesity due to excess calories with serious comorbidity and body mass index (BMI) of 36.0 to 36.9 in adult ([facility])- Primary Type 2 diabetes mellitus with diabetic polyneuropathy, with long-term current use of insulin ([facility]) Benign essential hypertension ([facility])- Primary Essential hypertension, benign Lumbar spondylosis Lumbosacral spondylosis without myelopathy Bilateral leg edema Edema Type 2 diabetes mellitus with diabetic polyneuropathy, with long-term current use of insulin ([facility]) Hypercholesteremia ([facility]) Pure hypercholesterolemia Encounter for long-term (current) use of medications Encounter for long-term (current) use of other medications Obesity (BMI 30-39.9) Body mass index [BMI] 36.0-36.9, adult (Z68.36) JARAD (generalized anxiety disorder) ([facility])- Primary Generalized anxiety disorder Benign essential hypertension ([facility]) Essential hypertension, benign Class 2 severe obesity due to excess calories with serious comorbidity and body mass index (BMI) of 35.0 to 35.9 in adult ([facility])- Primary Type 2 diabetes mellitus with diabetic polyneuropathy, with long-term current use of insulin ([facility]) Long-term insulin use ([facility]) Benign essential hypertension ([facility])- Primary Essential hypertension, benign JARAD (generalized anxiety disorder) ([facility]) Generalized anxiety disorder Bilateral leg edema Edema Lumbar spondylosis Lumbosacral spondylosis without myelopathy Benign essential hypertension (CMS/HCC)- Primary Essential hypertension, benign JARAD (generalized anxiety disorder) ([facility]) Generalized anxiety disorder Lumbar spondylosis Lumbosacral spondylosis without myelopathy Bilateral leg edema Edema Prostate cancer ([facility]) Malignant neoplasm of prostate Type 2 diabetes mellitus with hyperglycemia, with long-term current use of insulin ([facility]) Class 2 severe obesity due to excess calories with serious comorbidity and body mass index (BMI) of 35.0 to 35.9 in adult ([facility])- Primary Type 2 diabetes mellitus with hyperglycemia, with long-term current use of insulin ([facility]) Type 2 diabetes mellitus with diabetic polyneuropathy, with long-term current use of insulin ([facility]) Long-term insulin use ([facility]) Type 2 diabetes mellitus with stage 3a chronic kidney disease, with long-term current use of insulin (HCC) ([facility]) Class 2 severe obesity due to excess calories with serious comorbidity and body mass index (BMI) of 35.0 to 35.9 in adult ([facility])- Primary Type 2 diabetes mellitus with diabetic polyneuropathy, with long-term current use of insulin ([facility]) Type 2 diabetes mellitus with stage 3a chronic kidney disease, with long-term current use of insulin (HCC) ([facility]) Long-term insulin use ([facility]) Benign essential hypertension ([facility])- Primary Essential hypertension, benign JARAD (generalized anxiety disorder) ([facility]) Generalized anxiety disorder Lumbar spondylosis Lumbosacral spondylosis without myelopathy Type 2 diabetes mellitus with diabetic polyneuropathy, with long-term current use of insulin ([facility]) Type 2 diabetes mellitus with stage 3b chronic kidney disease, with long-term current use of insulin (HCC) ([facility]) documented in this encounter [facility]* Diagnosis Type 2 diabetes mellitus with diabetic polyneuropathy, with long-term current use of insulin ([facility]/H[facility])- Primary Class 2 severe obesity due to excess calories with serious comorbidity and body mass index (BMI) of 35.0 to 35.9 in adult ([facility])- Primary Type 2 diabetes mellitus with diabetic polyneuropathy, with long-term current use of insulin ([facility]/HCC) Long-term insulin use ([facility]) Lumbar spondylosis- Primary Lumbosacral spondylosis without myelopathy Benign essential hypertension ([facility]) Essential hypertension, benign Bilateral leg edema Edema Class 2 severe obesity due to excess calories with serious comorbidity and body mass index (BMI) of 36.0 to 36.9 in adult ([facility])- Primary Type 2 diabetes mellitus with diabetic polyneuropathy, with long-term current use of insulin ([facility]) Benign essential hypertension ([facility]/HCC)- Primary Essential hypertension, benign Lumbar spondylosis Lumbosacral spondylosis without myelopathy Bilateral leg edema Edema Type 2 diabetes mellitus with diabetic polyneuropathy, with long-term current use of insulin ([facility]) Hypercholesteremia ([facility]) Pure hypercholesterolemia Encounter for long-term (current) use of medications Encounter for long-term (current) use of other medications Obesity (BMI 30-39.9) Body mass index [BMI] 36.0-36.9, adult (Z68.36) JARAD (generalized anxiety disorder) ([facility])- Primary Generalized anxiety disorder Benign essential hypertension ([facility]) Essential hypertension, benign Class 2 severe obesity due to excess calories with serious comorbidity and body mass index (BMI) of 35.0 to 35.9 in adult ([facility])- Primary Type 2 diabetes mellitus with diabetic polyneuropathy, with long-term current use of insulin ([facility]) Long-term insulin use ([facility]) Benign essential hypertension (CMS/HCC)- Primary Essential hypertension, benign JARAD (generalized anxiety disorder) (CMS/HCC) Generalized anxiety disorder Bilateral leg edema Edema Lumbar spondylosis Lumbosacral spondylosis without myelopathy Benign essential hypertension (CMS/HCC)- Primary Essential hypertension, benign JARAD (generalized anxiety disorder) ([facility]) Generalized anxiety disorder Lumbar spondylosis Lumbosacral spondylosis without myelopathy Bilateral leg edema Edema Prostate cancer (CMS/HCC) Malignant neoplasm of prostate Type 2 diabetes mellitus with hyperglycemia, with long-term current use of insulin ([facility]) Class 2 severe obesity due to excess calories with serious comorbidity and body mass index (BMI) of 35.0 to 35.9 in adult ([facility])- Primary Type 2 diabetes mellitus with hyperglycemia, with long-term current use of insulin ([facility]) Type 2 diabetes mellitus with diabetic polyneuropathy, with long-term current use of insulin ([facility]) Long-term insulin use ([facility]) Type 2 diabetes mellitus with stage 3a chronic kidney disease, with long-term current use of insulin (HCC) ([facility]) Class 2 severe obesity due to excess calories with serious comorbidity and body mass index (BMI) of 35.0 to 35.9 in adult ([facility])- Primary Type 2 diabetes mellitus with diabetic polyneuropathy, with long-term current use of insulin ([facility]) Type 2 diabetes mellitus with stage 3a chronic kidney disease, with long-term current use of insulin ([facility]) ([facility]) Long-term insulin use ([facility]) Benign essential hypertension ([facility])- Primary Essential hypertension, benign JARAD (generalized anxiety disorder) ([facility]) Generalized anxiety disorder Lumbar spondylosis Lumbosacral spondylosis without myelopathy Type 2 diabetes mellitus with diabetic polyneuropathy, with long-term current use of insulin ([facility]) Type 2 diabetes mellitus with stage 3b chronic kidney disease, with long-term current use of insulin ([facility]) ([facility]) Left shoulder pain, unspecified chronicity- Primary S/P arthroscopy of left shoulder documented in this encounter [facility]* Diagnosis Type 2 diabetes mellitus with diabetic polyneuropathy, with long-term current use of insulin ([facility])- Primary Class 2 severe obesity due to excess calories with serious comorbidity and body mass index (BMI) of 35.0 to 35.9 in adult ([facility])- Primary Type 2 diabetes mellitus with diabetic polyneuropathy, with long-term current use of insulin ([facility]) Long-term insulin use ([facility]) Lumbar spondylosis- Primary Lumbosacral spondylosis without myelopathy Benign essential hypertension ([facility]) Essential hypertension, benign Bilateral leg edema Edema Class 2 severe obesity due to excess calories with serious comorbidity and body mass index (BMI) of 36.0 to 36.9 in adult ([facility])- Primary Type 2 diabetes mellitus with diabetic polyneuropathy, with long-term current use of insulin ([facility]) Benign essential hypertension ([facility])- Primary Essential hypertension, benign Lumbar spondylosis Lumbosacral spondylosis without myelopathy Bilateral leg edema Edema Type 2 diabetes mellitus with diabetic polyneuropathy, with long-term current use of insulin ([facility]) Hypercholesteremia ([facility]) Pure hypercholesterolemia Encounter for long-term (current) use of medications Encounter for long-term (current) use of other medications Obesity (BMI 30-39.9) Body mass index [BMI] 36.0-36.9, adult (Z68.36) JARAD (generalized anxiety disorder) ([facility])- Primary Generalized anxiety disorder Benign essential hypertension ([facility]) Essential hypertension, benign Class 2 severe obesity due to excess calories with serious comorbidity and body mass index (BMI) of 35.0 to 35.9 in adult ([facility])- Primary Type 2 diabetes mellitus with diabetic polyneuropathy, with long-term current use of insulin ([facility]) Long[facility]term insulin use ([facility]) Benign essential hypertension ([facility])- Primary Essential hypertension, benign JARAD (generalized anxiety disorder) ([facility]) Generalized anxiety disorder Bilateral leg edema Edema Lumbar spondylosis Lumbosacral spondylosis without myelopathy Benign essential hypertension ([facility])- Primary Essential hypertension, benign JARAD (generalized anxiety disorder) ([facility]) Generalized anxiety disorder Lumbar spondylosis Lumbosacral spondylosis without myelopathy Bilateral leg edema Edema Prostate cancer ([facility]) Malignant neoplasm of prostate Type 2 diabetes mellitus with hyperglycemia, with long-term current use of insulin ([facility]) Class 2 severe obesity due to excess calories with serious comorbidity and body mass index (BMI) of 35.0 to 35.9 in adult ([facility])- Primary Type 2 diabetes mellitus with hyperglycemia, with long-term current use of insulin ([facility]) Type 2 diabetes mellitus with diabetic polyneuropathy, with long-term current use of insulin ([facility]) Long-term insulin use ([facility]) Type 2 diabetes mellitus with stage 3a chronic kidney disease, with long-term current use of insulin ([facility]) ([facility]) Class 2 severe obesity due to excess calories with serious comorbidity and body mass index (BMI) of 35.0 to 35.9 in adult ([facility])- Primary Type 2 diabetes mellitus with diabetic polyneuropathy, with long-term current use of insulin ([facility]) Type 2 diabetes mellitus with stage 3a chronic kidney disease, with long-term current use of insulin (HCC) ([facility]) Long[facility]term insulin use ([facility]) Benign essential hypertension ([facility])- Primary Essential hypertension, benign JARAD (generalized anxiety disorder) ([facility]) Generalized anxiety disorder Lumbar spondylosis Lumbosacral spondylosis without myelopathy Type 2 diabetes mellitus with diabetic polyneuropathy, with long-term current use of insulin ([facility]) Type 2 diabetes mellitus with stage 3b chronic kidney disease, with long-term current use of insulin ([facility]) ([facility]) Contusion of left foot, initial encounter- Primary Pain in left foot Pain in soft tissues of limb Diabetic polyneuropathy associated with type 2 diabetes mellitus ([facility]) Encounter for long-term (current) use of insulin ([facility]) Encounter for long-term (current) use of insulin documented in this encounter [facility] HealthcareEvaluation note* Diagnosis Type 2 diabetes mellitus with diabetic polyneuropathy, with long-term current use of insulin ([facility])- Primary Class 2 severe obesity due to excess calories with serious comorbidity and body mass index (BMI) of 35.0 to 35.9 in adult ([facility])- Primary Type 2 diabetes mellitus with diabetic polyneuropathy, with long-term current use of insulin ([facility]) Long-term insulin use ([facility]) Lumbar spondylosis- Primary Lumbosacral spondylosis without myelopathy Benign essential hypertension ([facility]) Essential hypertension, benign Bilateral leg edema Edema Class 2 severe obesity due to excess calories with serious comorbidity and body mass index (BMI) of 36.0 to 36.9 in adult ([facility])- Primary Type 2 diabetes mellitus with diabetic polyneuropathy, with long-term current use of insulin ([facility]) Benign essential hypertension ([facility])- Primary Essential hypertension, benign Lumbar spondylosis Lumbosacral spondylosis without myelopathy Bilateral leg edema Edema Type 2 diabetes mellitus with diabetic polyneuropathy, with long-term current use of insulin ([facility]) Hypercholesteremia ([facility]) Pure hypercholesterolemia Encounter for long-term (current) use of medications Encounter for long-term (current) use of other medications Obesity (BMI 30-39.9) Body mass index [BMI] 36.0-36.9, adult (Z68.36) JARAD (generalized anxiety disorder) ([facility])- Primary Generalized anxiety disorder Benign essential hypertension ([facility]) Essential hypertension, benign Class 2 severe obesity due to excess calories with serious comorbidity and body mass index (BMI) of 35.0 to 35.9 in adult ([facility])- Primary Type 2 diabetes mellitus with diabetic polyneuropathy, with long-term current use of insulin ([facility]/HCC) Long-term insulin use ([facility]) Benign essential hypertension ([facility]/H[facility])- Primary Essential hypertension, benign JARAD (generalized anxiety disorder) ([facility]) Generalized anxiety disorder Bilateral leg edema Edema Lumbar spondylosis Lumbosacral spondylosis without myelopathy Benign essential hypertension (CMS/HCC)- Primary Essential hypertension, benign JARAD (generalized anxiety disorder) ([facility]) Generalized anxiety disorder Lumbar spondylosis Lumbosacral spondylosis without myelopathy Bilateral leg edema Edema Prostate cancer ([facility]) Malignant neoplasm of prostate Type 2 diabetes mellitus with hyperglycemia, with long-term current use of insulin ([facility]) Class 2 severe obesity due to excess calories with serious comorbidity and body mass index (BMI) of 35.0 to 35.9 in adult ([facility])- Primary Type 2 diabetes mellitus with hyperglycemia, with long-term current use of insulin ([facility]) Type 2 diabetes mellitus with diabetic polyneuropathy, with long-term current use of insulin ([facility]) Long-term insulin use ([facility]) Type 2 diabetes mellitus with stage 3a chronic kidney disease, with long-term current use of insulin (HCC) ([facility]) Class 2 severe obesity due to excess calories with serious comorbidity and body mass index (BMI) of 35.0 to 35.9 in adult ([facility])- Primary Type 2 diabetes mellitus with diabetic polyneuropathy, with long-term current use of insulin ([facility]) Type 2 diabetes mellitus with stage 3a chronic kidney disease, with long-term current use of insulin (HCC) ([facility]) Long-term insulin use ([facility]) Benign essential hypertension ([facility])- Primary Essential hypertension, benign JARAD (generalized anxiety disorder) ([facility]) Generalized anxiety disorder Lumbar spondylosis Lumbosacral spondylosis without myelopathy Type 2 diabetes mellitus with diabetic polyneuropathy, with long-term current use of insulin ([facility]) Type 2 diabetes mellitus with stage 3b chronic kidney disease, with long-term current use of insulin ([facility]) ([facility]) Left shoulder pain, unspecified chronicity- Primary S/P arthroscopy of left shoulder documented in this encounter [facility] HealthcareEvaluation note* Diagnosis Type 2 diabetes mellitus with diabetic polyneuropathy, with long-term current use of insulin ([facility]) Preop examination Unspecified pre-operative examination documented in this encounter [facility] HealthcareEvaluation note* Diagnosis Type 2 diabetes mellitus with diabetic polyneuropathy, with long-term current use of insulin ([facility])- Primary Class 2 severe obesity due to excess calories with serious comorbidity and body mass index (BMI) of 35.0 to 35.9 in adult ([facility])- Primary Type 2 diabetes mellitus with diabetic polyneuropathy, with long-term current use of insulin ([facility]) Long-term insulin use ([facility]) Lumbar spondylosis- Primary Lumbosacral spondylosis without myelopathy Benign essential hypertension ([facility]) Essential hypertension, benign Bilateral leg edema Edema Class 2 severe obesity due to excess calories with serious comorbidity and body mass index (BMI) of 36.0 to 36.9 in adult ([facility])- Primary Type 2 diabetes mellitus with diabetic polyneuropathy, with long-term current use of insulin ([facility]) Benign essential hypertension ([facility])- Primary Essential hypertension, benign Lumbar spondylosis Lumbosacral spondylosis without myelopathy Bilateral leg edema Edema Type 2 diabetes mellitus with diabetic polyneuropathy, with long-term current use of insulin ([facility]) Hypercholesteremia ([facility]) Pure hypercholesterolemia Encounter for long-term (current) use of medications Encounter for long-term (current) use of other medications Obesity (BMI 30-39.9) Body mass index [BMI] 36.0-36.9, adult (Z68.36) JARAD (generalized anxiety disorder) ([facility])- Primary Generalized anxiety disorder Benign essential hypertension ([facility]) Essential hypertension, benign Class 2 severe [...] hyperglycemia, with long-term current use of insulin ([facility]) Class 2 severe obesity due to excess calories with serious comorbidity and body mass index (BMI) of 35.0 to 35.9 in adult ([facility])- Primary Type 2 diabetes mellitus with hyperglycemia, with long-term current use of insulin ([facility]) Type 2 diabetes mellitus with diabetic polyneuropathy, with long-term current use of insulin ([facility]/HCC) Long-term insulin use ([facility]) Type 2 diabetes mellitus with stage 3a chronic kidney disease, with long-term current use of insulin (HCC) ([facility]) Class 2 severe obesity due to excess calories with serious comorbidity and body mass index (BMI) of 35.0 to 35.9 in adult ([facility])- Primary Type 2 diabetes mellitus with diabetic polyneuropathy, with long-term current use of insulin ([facility]/HCC) Type 2 diabetes mellitus with stage 3a chronic kidney disease, with long-term current use of insulin (HCC) ([facility]) Long-term insulin use ([facility]) Benign essential hypertension (CMS/HCC)- Primary Essential hypertension, benign JARAD (generalized anxiety disorder) ([facility]/HCC) Generalized anxiety disorder Lumbar spondylosis Lumbosacral spondylosis without myelopathy Type 2 diabetes mellitus with diabetic polyneuropathy, with long-term current use of insulin ([facility]/HCC) Type 2 diabetes mellitus with stage 3b chronic kidney disease, with long-term current use of insulin (HCC) ([facility]/HCC) Left shoulder pain, unspecified chronicity- Primary S/P arthroscopy of left shoulder S/P arthroscopy of left shoulder- Primary documented in this encounter [facility] HealthcareEvaluation note* Diagnosis Type 2 diabetes mellitus with diabetic polyneuropathy, with long-term current use of insulin ([facility])- Primary Class 2 severe obesity due to excess calories with serious comorbidity and body mass index (BMI) of 35.0 to 35.9 in adult ([facility])- Primary Type 2 diabetes mellitus with diabetic polyneuropathy, with long-term current use of insulin ([facility]) [facility]-term insulin use [facility] Lumbar spondylosis- Primary Lumbosacral spondylosis without myelopathy Benign essential hypertension ([facility]) Essential hypertension, benign Bilateral leg edema Edema Class 2 severe obesity due to excess calories with serious comorbidity and body mass index (BMI) of 36.0 to 36.9 in adult ([facility])- Primary Type 2 diabetes mellitus with diabetic polyneuropathy, with long-term current use of insulin [facility] Benign essential hypertension [facility] Primary Essential hypertension, benign Lumbar spondylosis Lumbosacral spondylosis without myelopathy Bilateral leg edema Edema Type 2 diabetes mellitus with diabetic polyneuropathy, with long-term current use of insulin [facility] Hypercholesteremia ([facility]) Pure hypercholesterolemia Encounter for long-term (current) use of medications Encounter for long-term (current) use of other medications Obesity (BMI 30-39.9) Body mass index [BMI] 36.0-36.9, adult (Z68.36) JARAD (generalized anxiety disorder) [facility] Primary Generalized anxiety disorder Benign essential hypertension [facility] Essential hypertension, benign Class 2 severe obesity due to excess calories with serious comorbidity and body mass index (BMI) of 35.0 to 35.9 in adult ([facility] Primary Type 2 diabetes mellitus with diabetic polyneuropathy, with long-term current use of insulin [facility] Long-term insulin use [facility] Benign essential hypertension ([facility])- Primary Essential hypertension, benign JARAD (generalized anxiety disorder) [facility] Generalized anxiety disorder Bilateral leg edema Edema Lumbar spondylosis Lumbosacral spondylosis without myelopathy Benign essential hypertension ([facility])- Primary Essential hypertension, benign JARAD (generalized anxiety disorder) ([facility]) Generalized anxiety disorder Lumbar spondylosis Lumbosacral spondylosis without myelopathy Bilateral leg edema Edema Prostate cancer ([facility]) Malignant neoplasm of prostate Type 2 diabetes mellitus with hyperglycemia, with long-term current use of insulin ([facility]) Class 2 severe obesity due to excess calories with serious comorbidity and body mass index (BMI) of 35.0 to 35.9 in adult ([facility])- Primary Type 2 diabetes mellitus with hyperglycemia, with long-term current use of insulin ([facility]) Type 2 diabetes mellitus with diabetic polyneuropathy, with long-term current use of insulin ([facility]) Long-term insulin use ([facility]) Type 2 diabetes mellitus with stage 3a chronic kidney disease, with long-term current use of insulin (HCC) ([facility]) Class 2 severe obesity due to excess calories with serious comorbidity and body mass index (BMI) of 35.0 to 35.9 in adult ([facility])- Primary Type 2 diabetes mellitus with diabetic polyneuropathy, with long-term current use of insulin ([facility]) Type 2 diabetes mellitus with stage 3a chronic kidney disease, with long-term current use of insulin ([facility]) ([facility]) Long-term insulin use ([facility]) Benign essential hypertension ([facility])- Primary Essential hypertension, benign JARAD (generalized anxiety disorder) ([facility]) Generalized anxiety disorder Lumbar spondylosis Lumbosacral spondylosis without myelopathy Type 2 diabetes mellitus with diabetic polyneuropathy, with long-term current use of insulin ([facility]) Type 2 diabetes mellitus with stage 3b chronic kidney disease, with long-term current use of insulin ([facility]) ([facility]) S/P arthroscopy of left shoulder- Primary documented in this encounter [facility] HealthcareEvaluation note* Diagnosis Type 2 diabetes mellitus with diabetic polyneuropathy, with long-term current use of insulin ([facility])- Primary Class 2 severe obesity due to excess calories with serious comorbidity and body mass index (BMI) of 35.0 to 35.9 in adult ([facility])- Primary Type 2 diabetes mellitus with diabetic polyneuropathy, with long-term current use of insulin ([facility]) Long-term insulin use ([facility]) Lumbar spondylosis- Primary Lumbosacral spondylosis without myelopathy Benign essential hypertension ([facility]) Essential hypertension, benign Bilateral leg edema Edema Class 2 severe obesity due to excess calories with serious comorbidity and body mass index (BMI) of 36.0 to 36.9 in adult ([facility])- Primary Type 2 diabetes mellitus with diabetic polyneuropathy, with long-term current use of insulin ([facility]) Benign essential hypertension ([facility])- Primary Essential hypertension, benign Lumbar spondylosis Lumbosacral spondylosis without myelopathy Bilateral leg edema Edema Type 2 diabetes mellitus with diabetic polyneuropathy, with long-term current use of insulin ([facility]) Hypercholesteremia ([facility]) Pure hypercholesterolemia Encounter for long-term (current) use of medications Encounter for long-term (current) use of other medications Obesity (BMI 30-39.9) Body mass index [BMI] 36.0-36.9, adult (Z68.36) JARAD (generalized anxiety disorder) ([facility])- Primary Generalized anxiety disorder Benign essential hypertension ([facility]) Essential hypertension, benign Class 2 severe obesity due to excess calories with serious comorbidity and body mass index (BMI) of 35.0 to 35.9 in adult ([facility])- Primary Type 2 diabetes mellitus with diabetic polyneuropathy, with long-term current use of insulin ([facility]) Long[facility]term insulin use ([facility]) Benign essential hypertension ([facility])- Primary Essential hypertension, benign JARAD (generalized anxiety disorder) ([facility]) Generalized anxiety disorder Bilateral leg edema Edema Lumbar spondylosis Lumbosacral spondylosis without myelopathy Benign essential hypertension ([facility])- Primary Essential hypertension, benign JARAD (generalized anxiety disorder) ([facility]) Generalized anxiety disorder Lumbar spondylosis Lumbosacral spondylosis without myelopathy Bilateral leg edema Edema Prostate cancer ([facility]) Malignant neoplasm of prostate Type 2 diabetes mellitus with hyperglycemia, with long-term current use of insulin ([facility]) Class 2 severe obesity due to excess calories with serious comorbidity and body mass index (BMI) of 35.0 to 35.9 in adult ([facility])- Primary Type 2 diabetes mellitus with hyperglycemia, with long-term current use of insulin ([facility]) Type 2 diabetes mellitus with diabetic polyneuropathy, with long-term current use of insulin ([facility]) Long-term insulin use ([facility]) Type 2 diabetes mellitus with stage 3a chronic kidney disease, with long-term current use of insulin ([facility]) ([facility]) Class 2 severe obesity due to excess calories with serious comorbidity and body mass index (BMI) of 35.0 to 35.9 in adult ([facility])- Primary Type 2 diabetes mellitus with diabetic polyneuropathy, with long-term current use of insulin ([facility]) Type 2 diabetes mellitus with stage 3a chronic kidney disease, with long-term current use of insulin (HCC) ([facility]) Long-term insulin use ([facility]) Benign essential hypertension ([facility])- Primary Essential hypertension, benign JARAD (generalized anxiety disorder) ([facility]) Generalized anxiety disorder Lumbar spondylosis Lumbosacral spondylosis without myelopathy Type 2 diabetes mellitus with diabetic polyneuropathy, with long-term current use of insulin ([facility]) Type 2 diabetes mellitus with stage 3b chronic kidney disease, with long-term current use of insulin ([facility]) ([facility]) Left shoulder pain, unspecified chronicity- Primary S/P arthroscopy of left shoulder documented in this encounter [facility] HealthcareEvaluation note* Diagnosis Type 2 diabetes mellitus with diabetic polyneuropathy, with long-term current use of insulin ([facility])- Primary Class 2 severe obesity due to excess calories with serious comorbidity and body mass index (BMI) of 35.0 to 35.9 in adult ([facility])- Primary Type 2 diabetes mellitus with diabetic polyneuropathy, with long-term current use of insulin ([facility]) Long-term insulin use ([facility]) Lumbar spondylosis- Primary Lumbosacral spondylosis without myelopathy Benign essential hypertension ([facility]) Essential hypertension, benign Bilateral leg edema Edema Class 2 severe obesity due to excess calories with serious comorbidity and body mass index (BMI) of 36.0 to 36.9 in adult ([facility])- Primary Type 2 diabetes mellitus with diabetic polyneuropathy, with long-term current use of insulin ([facility]) Benign essential hypertension ([facility])- Primary Essential hypertension, benign Lumbar spondylosis Lumbosacral spondylosis without myelopathy Bilateral leg edema Edema Type 2 diabetes mellitus with diabetic polyneuropathy, with long-term current use of insulin ([facility]) Hypercholesteremia ([facility]) Pure hypercholesterolemia Encounter for long-term (current) use of medications Encounter for long-term (current) use of other medications Obesity (BMI 30-39.9) Body mass index [BMI] 36.0-36.9, adult (Z68.36) JARAD (generalized anxiety disorder) ([facility])- Primary Generalized anxiety disorder Benign essential hypertension ([facility]) Essential hypertension, benign Class 2 severe obesity due to excess calories with serious comorbidity and body mass index (BMI) of 35.0 to 35.9 in adult ([facility])- Primary Type 2 diabetes mellitus with diabetic polyneuropathy, with long-term current use of insulin ([facility]) Long-term insulin use ([facility]) Benign essential hypertension ([facility])- Primary Essential hypertension, benign JARAD (generalized anxiety disorder) ([facility]) Generalized anxiety disorder Bilateral leg edema Edema Lumbar spondylosis Lumbosacral spondylosis without myelopathy Benign essential hypertension ([facility])- Primary Essential hypertension, benign JARAD (generalized anxiety disorder) ([facility]) Generalized anxiety disorder Lumbar spondylosis Lumbosacral spondylosis without myelopathy Bilateral leg edema Edema Prostate cancer ([facility]) Malignant neoplasm of prostate Type 2 diabetes mellitus with hyperglycemia, with long-term current use of insulin ([facility]) Class 2 severe obesity due to excess calories with serious comorbidity and body mass index (BMI) of 35.0 to 35.9 in adult ([facility])- Primary Type 2 diabetes mellitus with hyperglycemia, with long-term current use of insulin ([facility]) Type 2 diabetes mellitus with diabetic polyneuropathy, with long-term current use of insulin ([facility]) Long-term insulin use ([facility]) Type 2 diabetes mellitus with stage 3a chronic kidney disease, with long-term current use of insulin ([facility]) ([facility]) Class 2 severe obesity due to excess calories with serious comorbidity and body mass index (BMI) of 35.0 to 35.9 in adult ([facility])- Primary Type 2 diabetes mellitus with diabetic polyneuropathy, with long-term current use of insulin ([facility]) Type 2 diabetes mellitus with stage 3a chronic kidney disease, with long-term current use of insulin (HCC) ([facility]) Long-term insulin use ([facility]) Benign essential hypertension ([facility])- Primary Essential hypertension, benign JARAD (generalized anxiety disorder) ([facility]) Generalized anxiety disorder Lumbar spondylosis Lumbosacral spondylosis without myelopathy Type 2 diabetes mellitus with diabetic polyneuropathy, with long-term current use of insulin ([facility]) Type 2 diabetes mellitus with stage 3b chronic kidney disease, with long-term current use of insulin ([facility]) ([facility]) Left shoulder pain, unspecified chronicity- Primary S/P arthroscopy of left shoulder documented in this encounter [facility] HealthcareEvaluation note* Diagnosis Type 2 diabetes mellitus with diabetic polyneuropathy, with long-term current use of insulin ([facility])- Primary Class 2 severe obesity due to excess calories with serious comorbidity and body mass index (BMI) of 35.0 to 35.9 in adult ([facility])- Primary Type 2 diabetes mellitus with diabetic polyneuropathy, with long-term current use of insulin ([facility]) Long-term insulin use ([facility]) Lumbar spondylosis- Primary Lumbosacral spondylosis without myelopathy Benign essential hypertension ([facility]) Essential hypertension, benign Bilateral leg edema Edema Class 2 severe obesity due to excess calories with serious comorbidity and body mass index (BMI) of 36.0 to 36.9 in adult ([facility])- Primary Type 2 diabetes mellitus with diabetic polyneuropathy, with long-term current use of insulin ([facility]) Benign essential hypertension ([facility])- Primary Essential hypertension, benign Lumbar spondylosis Lumbosacral spondylosis without myelopathy Bilateral leg edema Edema Type 2 diabetes mellitus with diabetic polyneuropathy, with long-term current use of insulin ([facility]) Hypercholesteremia ([facility]) Pure hypercholesterolemia Encounter for long-term (current) use of medications Encounter for long-term (current) use of other medications Obesity (BMI 30-39.9) Body mass index [BMI] 36.0-36.9, adult (Z68.36) JARAD (generalized anxiety disorder) ([facility])- Primary Generalized anxiety disorder Benign essential hypertension ([facility]) Essential hypertension, benign Class 2 severe obesity due to excess calories with serious comorbidity and body mass index (BMI) of 35.0 to 35.9 in adult ([facility])- Primary Type 2 diabetes mellitus with diabetic polyneuropathy, with long-term current use of insulin ([facility]) Long[facility]term insulin use ([facility]) Benign essential hypertension ([facility])- Primary Essential hypertension, benign JARAD (generalized anxiety disorder) ([facility]) Generalized anxiety disorder Bilateral leg edema Edema Lumbar spondylosis Lumbosacral spondylosis without myelopathy Benign essential hypertension ([facility])- Primary Essential hypertension, benign JARAD (generalized anxiety disorder) ([facility]) Generalized anxiety disorder Lumbar spondylosis Lumbosacral spondylosis without myelopathy Bilateral leg edema Edema Prostate cancer ([facility]) Malignant neoplasm of prostate Type 2 diabetes mellitus with hyperglycemia, with long-term current use of insulin ([facility]) Class 2 severe obesity due to excess calories with serious comorbidity and body mass index (BMI) of 35.0 to 35.9 in adult ([facility])- Primary Type 2 diabetes mellitus with hyperglycemia, with long-term current use of insulin ([facility]) Type 2 diabetes mellitus with diabetic polyneuropathy, with long-term current use of insulin ([facility]) Long-term insulin use ([facility]) Type 2 diabetes mellitus with stage 3a chronic kidney disease, with long-term current use of insulin (HCC) ([facility]) Class 2 severe obesity due to excess calories with serious comorbidity and body mass index (BMI) of 35.0 to 35.9 in adult ([facility])- Primary Type 2 diabetes mellitus with diabetic polyneuropathy, with long-term current use of insulin ([facility]) Type 2 diabetes mellitus with stage 3a chronic kidney disease, with long-term current use of insulin ([facility]) ([facility]) Long-term insulin use ([facility]) Benign essential hypertension ([facility])- Primary Essential hypertension, benign JARAD (generalized anxiety disorder) ([facility]) Generalized anxiety disorder Lumbar spondylosis Lumbosacral spondylosis without myelopathy Type 2 diabetes mellitus with diabetic polyneuropathy, with long-term current use of insulin ([facility]) Type 2 diabetes mellitus with stage 3b chronic kidney disease, with long-term current use of insulin (HCC) ([facility]) Left shoulder pain, unspecified chronicity- Primary S/P arthroscopy of left shoulder documented in this encounter [facility] HealthcareEvaluation note* Diagnosis Type 2 diabetes mellitus with diabetic polyneuropathy, with long-term current use of insulin ([facility])- Primary Class 2 severe obesity due to excess calories with serious comorbidity and body mass index (BMI) of 35.0 to 35.9 in adult ([facility])- Primary Type 2 diabetes mellitus with diabetic polyneuropathy, with long-term current use of insulin ([facility]) Long-term insulin use ([facility]) Lumbar spondylosis- Primary Lumbosacral spondylosis without myelopathy Benign essential hypertension ([facility]) Essential hypertension, benign Bilateral leg edema Edema Class 2 severe obesity due to excess calories with serious comorbidity and body mass index (BMI) of 36.0 to 36.9 in adult ([facility])- Primary Type 2 diabetes mellitus with diabetic polyneuropathy, with long-term current use of insulin ([facility]) Benign essential hypertension ([facility])- Primary Essential hypertension, benign Lumbar spondylosis Lumbosacral spondylosis without myelopathy Bilateral leg edema Edema Type 2 diabetes mellitus with diabetic polyneuropathy, with long-term current use of insulin ([facility]) Hypercholesteremia ([facility]) Pure hypercholesterolemia Encounter for long-term (current) use of medications Encounter for long-term (current) use of other medications Obesity (BMI 30-39.9) Body mass index [BMI] 36.0-36.9, adult (Z68.36) JARAD (generalized anxiety disorder) ([facility])- Primary Generalized anxiety disorder Benign essential hypertension ([facility]) Essential hypertension, benign Class 2 severe obesity due to excess calories with serious comorbidity and body mass index (BMI) of 35.0 to 35.9 in adult ([facility])- Primary Type 2 diabetes mellitus with diabetic polyneuropathy, with long-term current use of insulin ([facility]) Long[facility]term insulin use ([facility]) Benign essential hypertension ([facility])- Primary Essential hypertension, benign JARAD (generalized anxiety disorder) ([facility]) Generalized anxiety disorder Bilateral leg edema Edema Lumbar spondylosis Lumbosacral spondylosis without myelopathy Benign essential hypertension ([facility])- Primary Essential hypertension, benign JARAD (generalized anxiety disorder) ([facility]) Generalized anxiety disorder Lumbar spondylosis Lumbosacral spondylosis without myelopathy Bilateral leg edema Edema Prostate cancer ([facility]) Malignant neoplasm of prostate Type 2 diabetes mellitus with hyperglycemia, with long-term current use of insulin ([facility]) Class 2 severe obesity due to excess calories with serious comorbidity and body mass index (BMI) of 35.0 to 35.9 in adult ([facility])- Primary Type 2 diabetes mellitus with hyperglycemia, with long-term current use of insulin ([facility]) Type 2 diabetes mellitus with diabetic polyneuropathy, with long-term current use of insulin ([facility]) Long-term insulin use ([facility]) Type 2 diabetes mellitus with stage 3a chronic kidney disease, with long-term current use of insulin ([facility]) ([facility]) Class 2 severe obesity due to excess calories with serious comorbidity and body mass index (BMI) of 35.0 to 35.9 in adult ([facility])- Primary Type 2 diabetes mellitus with diabetic polyneuropathy, with long-term current use of insulin ([facility]) Type 2 diabetes mellitus with stage 3a chronic kidney disease, with long-term current use of insulin ([facility]) ([facility]) Long-term insulin use ([facility]) Benign essential hypertension ([facility])- Primary Essential hypertension, benign JARAD (generalized anxiety disorder) ([facility]) Generalized anxiety disorder Lumbar spondylosis Lumbosacral spondylosis without myelopathy Type 2 diabetes mellitus with diabetic polyneuropathy, with long-term current use of insulin ([facility]) Type 2 diabetes mellitus with stage 3b chronic kidney disease, with long-term current use of insulin ([facility]) ([facility]) S/P arthroscopy of left shoulder- Primary documented in this encounter [facility] HealthcareEvaluation note* Diagnosis Type 2 diabetes mellitus with diabetic polyneuropathy, with long-term current use of insulin ([facility])- Primary Class 2 severe obesity due to excess calories with serious comorbidity and body mass index (BMI) of 35.0 to 35.9 in adult ([facility])- Primary Type 2 diabetes mellitus with diabetic polyneuropathy, with long-term current use of insulin ([facility]) Long-term insulin use ([facility]) Lumbar spondylosis- Primary Lumbosacral spondylosis without myelopathy Benign essential hypertension ([facility]) Essential hypertension, benign Bilateral leg edema Edema Class 2 severe obesity due to excess calories with serious comorbidity and body mass index (BMI) of 36.0 to 36.9 in adult ([facility])- Primary Type 2 diabetes mellitus with diabetic polyneuropathy, with long-term current use of insulin ([facility]) Benign essential hypertension ([facility])- Primary Essential hypertension, benign Lumbar spondylosis Lumbosacral spondylosis without myelopathy Bilateral leg edema Edema Type 2 diabetes mellitus with diabetic polyneuropathy, with long-term current use of insulin ([facility]) Hypercholesteremia ([facility]) Pure hypercholesterolemia Encounter for long-term (current) use of medications Encounter for long-term (current) use of other medications Obesity (BMI 30-39.9) Body mass index [BMI] 36.0-36.9, adult (Z68.36) JARAD (generalized anxiety disorder) ([facility])- Primary Generalized anxiety disorder Benign essential hypertension ([facility]) Essential hypertension, benign Class 2 severe obesity due to excess calories with serious comorbidity and body mass index (BMI) of 35.0 to 35.9 in adult ([facility])- Primary Type 2 diabetes mellitus with diabetic polyneuropathy, with long-term current use of insulin ([facility]) Long-term insulin use ([facility]) Benign essential hypertension ([facility])- Primary Essential hypertension, benign JARAD (generalized anxiety disorder) ([facility]) Generalized anxiety disorder Bilateral leg edema Edema Lumbar spondylosis Lumbosacral spondylosis without myelopathy Benign essential hypertension (CMS/HCC)- Primary Essential hypertension, benign JARAD (generalized anxiety disorder) ([facility]) Generalized anxiety disorder Lumbar spondylosis Lumbosacral spondylosis without myelopathy Bilateral leg edema Edema Prostate cancer ([facility]) Malignant neoplasm of prostate Type 2 diabetes mellitus with hyperglycemia, with long-term current use of insulin ([facility]) Class 2 severe obesity due to excess calories with serious comorbidity and body mass index (BMI) of 35.0 to 35.9 in adult ([facility])- Primary Type 2 diabetes mellitus with hyperglycemia, with long-term current use of insulin ([facility]) Type 2 diabetes mellitus with diabetic polyneuropathy, with long-term current use of insulin ([facility]) Long-term insulin use ([facility]) Type 2 diabetes mellitus with stage 3a chronic kidney disease, with long-term current use of insulin ([facility]) ([facility]) Class 2 severe obesity due to excess calories with serious comorbidity and body mass index (BMI) of 35.0 to 35.9 in adult ([facility])- Primary Type 2 diabetes mellitus with diabetic polyneuropathy, with long-term current use of insulin ([facility]) Type 2 diabetes mellitus with stage 3a chronic kidney disease, with long-term current use of insulin (HCC) ([facility]) Long-term insulin use ([facility]) Benign essential hypertension ([facility])- Primary Essential hypertension, benign JARAD (generalized anxiety disorder) ([facility]) Generalized anxiety disorder Lumbar spondylosis Lumbosacral spondylosis without myelopathy Type 2 diabetes mellitus with diabetic polyneuropathy, with long-term current use of insulin ([facility]) Type 2 diabetes mellitus with stage 3b chronic kidney disease, with long-term current use of insulin ([facility]) ([facility]) Left shoulder pain, unspecified chronicity- Primary S/P arthroscopy of left shoulder documented in this encounter [facility] HealthcareEvaluation [facility]* Diagnosis Type 2 diabetes mellitus with diabetic polyneuropathy, with long-term current use of insulin ([facility])- Primary Class 2 severe obesity due to excess calories with serious comorbidity and body mass index (BMI) of 35.0 to 35.9 in adult ([facility])- Primary Type 2 diabetes mellitus with diabetic polyneuropathy, with long-term current use of insulin ([facility] [facility]) Long-term insulin use ([facility]) Lumbar spondylosis- Primary Lumbosacral spondylosis without myelopathy Benign essential hypertension ([facility]) Essential hypertension, benign Bilateral leg edema Edema Class 2 severe obesity due to excess calories with serious comorbidity and body mass index (BMI) of 36.0 to 36.9 in adult ([facility])- Primary Type 2 diabetes mellitus with diabetic polyneuropathy, with long-term current use of insulin ([facility]) Benign essential hypertension ([facility])- Primary Essential hypertension, benign Lumbar spondylosis Lumbosacral spondylosis without myelopathy Bilateral leg edema Edema Type 2 diabetes mellitus with diabetic polyneuropathy, with long-term current use of insulin ([facility]) Hypercholesteremia ([facility]) Pure hypercholesterolemia Encounter for long-term (current) use of medications Encounter for long-term (current) use of other medications Obesity (BMI 30-39.9) Body mass index [BMI] 36.0-36.9, adult (Z68.36) JARAD (generalized anxiety disorder) ([facility])- Primary Generalized anxiety disorder Benign essential hypertension ([facility]) Essential hypertension, benign Class 2 severe obesity due to excess calories with serious comorbidity and body mass index (BMI) of 35.0 to 35.9 in adult ([facility])- Primary Type 2 diabetes mellitus with diabetic polyneuropathy, with long-term current use of insulin ([facility]) Long-term insulin use ([facility]) Benign essential hypertension ([facility]/HCC)- Primary Essential hypertension, benign JARAD (generalized anxiety disorder) ([facility]) Generalized anxiety disorder Bilateral leg edema Edema Lumbar spondylosis Lumbosacral spondylosis without myelopathy Benign essential hypertension (CMS/HCC)- Primary Essential hypertension, benign JARAD (generalized anxiety disorder) ([facility]) Generalized anxiety disorder Lumbar spondylosis Lumbosacral spondylosis without myelopathy Bilateral leg edema Edema Prostate cancer ([facility]) Malignant neoplasm of prostate Type 2 diabetes mellitus with hyperglycemia, with long-term current use of insulin ([facility]) Class 2 severe obesity due to excess calories with serious comorbidity and body mass index (BMI) of 35.0 to 35.9 in adult ([facility])- Primary Type 2 diabetes mellitus with hyperglycemia, with long-term current use of insulin ([facility]) Type 2 diabetes mellitus with diabetic polyneuropathy, with long-term current use of insulin ([facility]) Long-term insulin use ([facility]) Type 2 diabetes mellitus with stage 3a chronic kidney disease, with long-term current use of insulin ([facility]) ([facility]) Class 2 severe obesity due to excess calories with serious comorbidity and body mass index (BMI) of 35.0 to 35.9 in adult ([facility])- Primary Type 2 diabetes mellitus with diabetic polyneuropathy, with long-term current use of insulin ([facility]) Type 2 diabetes mellitus with stage 3a chronic kidney disease, with long-term current use of insulin ([facility]) ([facility]) Long-term insulin use ([facility]) Benign essential hypertension ([facility])- Primary Essential hypertension, benign JARAD (generalized anxiety disorder) ([facility]) Generalized anxiety disorder Lumbar spondylosis Lumbosacral spondylosis without myelopathy Type 2 diabetes mellitus with diabetic polyneuropathy, with long-term current use of insulin ([facility]) Type 2 diabetes mellitus with stage 3b chronic kidney disease, with long-term current use of insulin ([facility]) ([facility]) Left shoulder pain, unspecified chronicity- Primary S/P arthroscopy of left shoulder documented in this encounter [facility] HealthcareEvaluation note* Diagnosis Type 2 diabetes mellitus with diabetic polyneuropathy, with long-term current use of insulin ([facility])- Primary Class 2 severe obesity due to excess calories with serious comorbidity and body mass index (BMI) of 35.0 to 35.9 in adult ([facility])- Primary Type 2 diabetes mellitus with diabetic polyneuropathy, with long-term current use of insulin ([facility]) Long-term insulin use ([facility]) Lumbar spondylosis- Primary Lumbosacral spondylosis without myelopathy Benign essential hypertension ([facility]) Essential hypertension, benign Bilateral leg edema Edema Class 2 severe obesity due to excess calories with serious comorbidity and body mass index (BMI) of 36.0 to 36.9 in adult ([facility])- Primary Type 2 diabetes mellitus with diabetic polyneuropathy, with long-term current use of insulin ([facility]) Benign essential hypertension ([facility])- Primary Essential hypertension, benign Lumbar spondylosis Lumbosacral spondylosis without myelopathy Bilateral leg edema Edema Type 2 diabetes mellitus with diabetic polyneuropathy, with long-term current use of insulin ([facility]) Hypercholesteremia ([facility]) Pure hypercholesterolemia Encounter for long-term (current) use of medications Encounter for long-term (current) use of other medications Obesity (BMI 30-39.9) Body mass index [BMI] 36.0-36.9, adult (Z68.36) JARAD (generalized anxiety disorder) ([facility])- Primary Generalized anxiety disorder Benign essential hypertension ([facility]) Essential hypertension, benign Class 2 severe obesity due to excess calories with serious comorbidity and body mass index (BMI) of 35.0 to 35.9 in adult ([facility])- Primary Type 2 diabetes mellitus with diabetic polyneuropathy, with long-term current use of insulin ([facility]) Long-term insulin use ([facility]) Benign essential hypertension ([facility])- Primary Essential hypertension, benign JARAD (generalized anxiety disorder) ([facility]) Generalized anxiety disorder Bilateral leg edema Edema Lumbar spondylosis Lumbosacral spondylosis without myelopathy Benign essential hypertension ([facility])- Primary Essential hypertension, benign JARAD (generalized anxiety disorder) ([facility]) Generalized anxiety disorder Lumbar spondylosis Lumbosacral spondylosis without myelopathy Bilateral leg edema Edema Prostate cancer ([facility]) Malignant neoplasm of prostate Type 2 diabetes mellitus with hyperglycemia, with long-term current use of insulin ([facility]) Class 2 severe obesity due to excess calories with serious comorbidity and body mass index (BMI) of 35.0 to 35.9 in adult ([facility])- Primary Type 2 diabetes mellitus with hyperglycemia, with long-term current use of insulin ([facility]) Type 2 diabetes mellitus with diabetic polyneuropathy, with long-term current use of insulin ([facility]) Long-term insulin use ([facility]) Type 2 diabetes mellitus with stage 3a chronic kidney disease, with long-term current use of insulin (HCC) ([facility]) Class 2 severe obesity due to excess calories with serious comorbidity and body mass index (BMI) of 35.0 to 35.9 in adult ([facility])- Primary Type 2 diabetes mellitus with diabetic polyneuropathy, with long-term current use of insulin ([facility]) Type 2 diabetes mellitus with stage 3a chronic kidney disease, with long-term current use of insulin ([facility]) ([facility]) Long-term insulin use ([facility]) Benign essential hypertension ([facility])- Primary Essential hypertension, benign JARAD (generalized anxiety disorder) ([facility]) Generalized anxiety disorder Lumbar spondylosis Lumbosacral spondylosis without myelopathy Type 2 diabetes mellitus with diabetic polyneuropathy, with long-term current use of insulin ([facility]) Type 2 diabetes mellitus with stage 3b chronic kidney disease, with long-term current use of insulin ([facility]) ([facility]) S/P arthroscopy of left shoulder- Primary documented in this encounter [facility] HealthcareEvaluation note* Diagnosis Type 2 diabetes mellitus with diabetic polyneuropathy, with long-term current use of insulin ([facility])- Primary Class 2 severe obesity due to excess calories with serious comorbidity and body mass index (BMI) of 35.0 to 35.9 in adult ([facility])- Primary Type 2 diabetes mellitus with diabetic polyneuropathy, with long-term current use of insulin ([facility]) Long-term insulin use ([facility]) Lumbar spondylosis- Primary Lumbosacral spondylosis without myelopathy Benign essential hypertension ([facility]) Essential hypertension, benign Bilateral leg edema Edema Class 2 severe obesity due to excess calories with serious comorbidity and body mass index (BMI) of 36.0 to 36.9 in adult ([facility])- Primary Type 2 diabetes mellitus with diabetic polyneuropathy, with long-term current use of insulin ([facility]) Benign essential hypertension ([facility])- Primary Essential hypertension, benign Lumbar spondylosis Lumbosacral spondylosis without myelopathy Bilateral leg edema Edema Type 2 diabetes mellitus with diabetic polyneuropathy, with long-term current use of insulin ([facility]) Hypercholesteremia ([facility]) Pure hypercholesterolemia Encounter for long-term (current) [...] (BMI) of 35.0 to 35.9 in adult ([facility])- Primary Type 2 diabetes mellitus with hyperglycemia, with long-term current use of insulin (CMS/HCC) Type 2 diabetes mellitus with diabetic polyneuropathy, with long-term current use of insulin (CMS/HCC) Long-term insulin use (CMS/HCC) Type 2 diabetes mellitus with stage 3a chronic kidney disease, with long-term current use of insulin (HCC) ([facility]) Class 2 severe obesity due to excess calories with serious comorbidity and body mass index (BMI) of 35.0 to 35.9 in adult ([facility])- Primary Type 2 diabetes mellitus with [...] polyneuropathy, with long-term current use of insulin (CMS/[facility]) Type 2 diabetes mellitus with stage 3b chronic kidney disease, with long-term current use of insulin (HCC) ([facility]) Class 2 severe obesity due to excess calories with serious comorbidity and body mass index (BMI) of 37.0 to 37.9 in adult ([facility])- Primary Type 2 diabetes mellitus with diabetic polyneuropathy, with long-term current use of insulin ([facility]) Type 2 diabetes mellitus with stage 3b chronic kidney disease, with long-term current use of insulin (HCC) ([facility]) Type 2 diabetes mellitus with hyperglycemia, with long-term current use of insulin ([facility]) documented in this encounter [facility] HealthcareEvaluation note* Diagnosis Obstructive sleep apnea syndrome- Primary Obstructive sleep apnea (adult) (pediatric) [facility]* Diagnosis Obstructive sleep apnea syndrome Obstructive sleep apnea (adult) (pediatric) CSA (central sleep apnea) Unspecified sleep apnea documented in this [facility]* Diagnosis Personal history of tobacco use, presenting hazards to health- Primary Obstructive sleep apnea syndrome Obstructive sleep apnea (adult) (pediatric) CSA (central sleep apnea) Unspecified sleep apnea documented in this [facility]* Diagnosis Encounter for other preprocedural examination documented in this [facility]* Diagnosis Obstructive sleep apnea syndrome- Primary Obstructive sleep apnea (adult) (pediatric) Personal history of tobacco use, presenting hazards to health documented in this encounter [facility]* Diagnosis Type 2 diabetes mellitus with diabetic polyneuropathy, with long-term current use of insulin ([facility])- Primary Class 2 severe obesity due to excess calories with serious comorbidity and body mass index (BMI) of 35.0 to 35.9 in adult ([facility])- Primary Type 2 diabetes mellitus with diabetic polyneuropathy, with long-term current use of insulin ([facility]) Long-term insulin use ([facility]) Lumbar spondylosis- Primary Lumbosacral spondylosis without myelopathy Benign essential hypertension ([facility]) Essential hypertension, benign Bilateral leg edema Edema Class 2 severe obesity due to excess calories with serious comorbidity and body mass index (BMI) of 36.0 to 36.9 in adult ([facility])- Primary Type 2 diabetes mellitus with diabetic polyneuropathy, with long-term current use of insulin ([facility]) Benign essential hypertension ([facility])- Primary Essential hypertension, benign Lumbar spondylosis Lumbosacral spondylosis without myelopathy Bilateral leg edema Edema Type 2 diabetes mellitus with diabetic polyneuropathy, with long-term current use of insulin ([facility]) Hypercholesteremia ([facility]) Pure hypercholesterolemia Encounter for long-term (current) use of medications Encounter for long-term (current) use of other medications Obesity (BMI 30-39.9) Body mass index [BMI] 36.0-36.9, adult (Z68.36) JARAD (generalized anxiety disorder) ([facility])- Primary Generalized anxiety disorder Benign essential hypertension ([facility]) Essential hypertension, benign Class 2 severe obesity due to excess calories with serious comorbidity and body mass index (BMI) of 35.0 to 35.9 in adult ([facility])- Primary Type 2 diabetes mellitus with diabetic polyneuropathy, with long-term current use of insulin ([facility]) Long-term insulin use ([facility]) Benign essential hypertension ([facility])- Primary Essential hypertension, benign JARAD (generalized anxiety disorder) ([facility]) Generalized anxiety disorder Bilateral leg edema Edema Lumbar spondylosis Lumbosacral spondylosis without myelopathy Benign essential hypertension ([facility]/HCC)- Primary Essential hypertension, benign JARAD (generalized anxiety disorder) ([facility]) Generalized anxiety disorder Lumbar spondylosis Lumbosacral spondylosis without myelopathy Bilateral leg edema Edema Prostate cancer ([facility]) Malignant neoplasm of prostate Type 2 diabetes mellitus with hyperglycemia, with long-term current use of insulin ([facility]) Class 2 severe obesity due to excess calories with serious comorbidity and body mass index (BMI) of 35.0 to 35.9 in adult ([facility])- Primary Type 2 diabetes mellitus with hyperglycemia, with long-term current use of insulin ([facility]) Type 2 diabetes mellitus with diabetic polyneuropathy, with long-term current use of insulin ([facility]) Long-term insulin use ([facility]) Type 2 diabetes mellitus with stage 3a chronic kidney disease, with long-term current use of insulin ([facility]) ([facility]) Class 2 severe obesity due to excess calories with serious comorbidity and body mass index (BMI) of 35.0 to 35.9 in adult ([facility])- Primary Type 2 diabetes mellitus with diabetic polyneuropathy, with long-term current use of insulin ([facility]/HCC) Type 2 diabetes mellitus with stage 3a chronic kidney disease, with long-term current use of insulin (HCC) ([facility]/HCC) Long-term insulin use ([facility]/HCC) Benign essential hypertension (CMS/HCC)- Primary Essential hypertension, benign JARAD (generalized anxiety disorder) ([facility]) Generalized anxiety disorder Lumbar spondylosis Lumbosacral spondylosis without myelopathy Type 2 diabetes mellitus with diabetic polyneuropathy, with long-term current use of insulin (CMS/HCC) Type 2 diabetes mellitus with stage 3b chronic kidney disease, with long-term current use of insulin (HCC) ([facility]) Class 2 severe obesity due to excess calories with serious comorbidity and body mass index (BMI) of 37.0 to 37.9 in adult (CMS/[facility])- Primary Type 2 diabetes mellitus with diabetic polyneuropathy, with long-term current use of insulin ([facility]) Type 2 diabetes mellitus with stage 3b chronic kidney disease, with long-term current use of insulin (HCC) ([facility]) Type 2 diabetes mellitus with hyperglycemia, with long-term current use of insulin ([facility]) Diabetic polyneuropathy associated with type 2 diabetes mellitus ([facility])- Primary Encounter for long-term (current) use of insulin ([facility]) Encounter for long-term (current) use of insulin Chronic painful diabetic neuropathy ([facility]) 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 documented in this encounter [facility]* Diagnosis SOB (shortness of breath)- Primary Shortness of breath [facility] Diagnosis SOB (shortness of breath)- Primary Shortness of breath [facility] Diagnosis SOB (shortness of breath)- Primary Shortness of breath Personal history of tobacco use, presenting hazards to health Obstructive sleep apnea syndrome Obstructive sleep apnea (adult) (pediatric) documented [facility] Author Kike Bernal [facility] July 24, 2022 1:05pm Note Date/Time July 24, 2022 1 :05pm [facility] [address] [place] [address] Gastroenterology H&P Signed Patient: Milad Seymour MR#: [id number] : 1955 Acct:[id number] Age/Sex: 66 / M Adm Date: 3 Loc: Room: Type: [facility] Attending Dr: Kike Bernal MD Copies [...] signed by Kike Bernal MD> 07/24/22 1305 [facility] Work Phone: History and physical note Author Kike Bernal [facility] April 27, 2023 11:41am Note Date/Time April 27, 2023 11:41am [facility] [address] [place] [address] Gastroenterology H&P Signed Patient: Milad Seymour MR#: [id number] : 1955 Acct:[id number] Age/Sex: 67 / M Adm Date: 3 Loc: Room: Type: [facility] Attending Dr: Kike Bernal MD Copies [...] by Kike Bernal MD> 04/27/23 1141 [facility] Work Phone: History general Narrative - [...] History none in the last year 20 [employer] Other Hospital course Narrative No data available for this section [facility] Discharge instructions Additional Instructions DISCHARGE INSTRUCTIONS [...] problems. -Follow up with PCP. -Office number [phone]. [facility] Work Phone: Hospital Discharge instructions No data available for this section [facility] Discharge instructions Additional Instructions DISCHARGE [...] in the office as scheduled -Office number [phone]. [facility] Work Phone: InstructionsNot on filedocumented in this encounter [facility] filed[facility] in this encounter [facility]ructionsNot on filedocumented in this encounter [facility]ructionsNot on filedocumented in this encounter [facility] note No data available for this section [facility] reason for referral (narrative)No reason for referral [facility] Work [facility] Reason for visit Narrative* Consultation (Routine) - Authorized Specialty Diagnoses / Procedures Referred By Anabel salinas Referred To Contact Physical Therapy Diagnoses S/P arthroscopy of left shoulder Procedures [place] OFFICE/OUTPATIENT [facility] Rebecca Dias PA [address] [facility] [address] [place] [address] Phone: tel: fax: Alma Berkowitz, OSWALD Referral ID Status Reason Start Date Expiration Date Visits Requested Visits Authorized [id number] Authorized Consult and Treat 05/13/2024 08/10/2024 12 12 [facility]* Consultation (Routine) - Closed Specialty Diagnoses / Procedures Referred By Anabel salinas Referred To Contact Physical Therapy Diagnoses S/P arthroscopy of left shoulder Procedures [place] OFFICE[place]PAT[place] [facility] Rebecca Dias PA [address] [address] Phone: tel: fax: Alma Berkowitz, OSWALD Referral ID Status Reason Start Date Expiration Date V isits Requested Visits Authorized [id number] Closed Consult and Treat 05/13/2024 08/10/2024 12 12 [facility] N[facility]ative* Rehabilitation - Outpatient (Routine) - Authorized Specialty Diagnoses / Procedures Referred By Anabel salinas Referred To Contact Physical Therapy Diagnoses S/P arthroscopy of left shoulder Procedures [place] THER PX 1/> AREAS EACH 15 MIN NEUROMUSC REEDUCA [place] THERAPEUTIC PX 1/> AREAS EACH 15 MIN EXERCISES [place] OFFICE/OUTPATIENT [facility] 60 MINUTES PHYS/OCC THERAPY SS Rebecca Dias PA [address] [address] Phone: tel: fax: Alma Berkowitz PT Referral ID Status Reason Start Date Expiration Date V isits Requested Visits Authorized [id number] Authorized 07/01/2024 09/28/2024 12 12 [facility] Summary Purpose Family History Relationship Condition [...] Time Advance Directives No October 11, 018 2:12pm Date Activated Date Inactivated Comments [...] 6 week follow up 2024 3:01 pm Chief Complaint Admit Date 3 month follow up-gerd December 23, 2024 2: 02pm Reason for Referral Specialty Diagnoses / Procedures Referred By Contac t Referred To Contact Diagnoses Obstructive sleep apnea syndrome CSA (central sleep apnea) Procedures Polysomnography 4 or more parameters with PAP titration Gregoria Ralph [employer]-INTERNAL MEDICINE VETERINARY TECHNICIAN [address] [facility], [address] [address] Referral ID Status Reason Start Date Expiration Date V isits Requested Visits Authorized [id number] Pending Review 08/15/2023 08/14/2024 1 1 Specialty Diagnoses / Procedures Referred By Contac t Referred To Contact Diagnoses Obstructive sleep apnea syndrome CSA (central sleep apnea) Procedures Echo complete W/O contrast Gregoria Ralph [employer]-INTERNAL MEDICINE VETERINARY TECHNICIAN [address] [facility], [address] [address] Phone: [phone] Referral ID Status Reason Start Date Expiration Date V isits Requested Visits Authorized [id number] Authorized 08/15/2023 11/12/2023 1 1 Specialty Diagnoses / Procedures Referred By Contac t Referred To Contact Radiology Diagnoses Personal history of tobacco use, presenting hazards to health Procedures CT low dose lung screenin (3mo 6mo follow-up) Gregoria Ralph [employer]-INTERNAL MEDICINE VETERINARY TECHNICIAN [address] [address] [place] [address] [place] [address] Phone: [phone] Referral ID Status Reason Start Date Expiration Date V isits Requested Visits Authorized [id number] Authorized 08/16/2023 11/13/2023 1 1 Additional Source Comments (unrecognized sect ion and content) No Status Records FoundNo Status Records FoundNo Status Records FoundNo Status Records FoundNo Status Records FoundNo Status Records FoundNo Status Records FoundNo Status Records FoundNo Status Records FoundNo Status Records Found INFORMATION SOURCE (unrecogn ized section and content) DATE CREATED AUTHOR 08/06/2021 [facility] DATE CREATED AUTHOR AUTHOR'S ORGANIZ ATION [facility]/24/2022 [facility] DATE CREATED AUTHOR AUTHOR'S ORGANIZ ATION 12/15/2023 [facility] DATE CREATED AUTHOR AUTHOR'S ORGANIZ ATION 02/05/2024 [facility] DATE CREATED AUTHOR AUTHOR'S ORGANIZ ATION 08/01/2024 [facility] DATE CREATED AUTHOR AUTHOR'S ORGANIZ ATION 08/09/2024 [facility] DATE CREATED AUTHOR AUTHOR'S ORGANIZ ATION 09/26/2024 [facility] DATE CREATED AUTHOR AUTHOR'S ORGANIZ ATION 10/28/2024 [facility] DATE CREATED AUTHOR AUTHOR'S ORGANIZ ATION 11/18/2024 [facility] DATE CREATED AUTHOR AUTHOR'S ORGANIZ ATION 12/05/2024 [facility] Care Team (unrecognized sect ion and [...] Status: Inactive Member Role Status Dates Dank Camop MD Primary Care Provide r, Attending Provider Active Start: July 17, 2023 End: July 17, 2023 Examining Chair Assembler Relationship Specialty Start Date End Date Dank Campo MD [address] [place] [phone] PCP - General Family Medicine 07/25/23 Examining Chair Assembler Relationship Specialty Start Date End Date Dank Campo MD [address] [place] [address] PCP - General Family Medicine 07/25/23 Team Status: Inactive Member Role Status Dates Dank Campo MD Primary Care Provider Active S tart: July 24, 2023 End: July 24, 2023 Fredy Boswell NP-C Attending Provider Active Start: July 24, [...] March 17, 2024 End: March 17, 2024 Examining Chair Assembler Relationship Specialty Start Date End Date Dank Camop MD [address] [place] [address] PCP - General Family Medicine 08/17/23 Examining Chair Assembler Relationship Specialty Start Date End Date Dank Campo MD [address] [place] [address] PCP - General Family Medicine 08/17/23 Examining Chair Assembler Relationship Specialty Start Date End Date Dank Campo MD [address] [place] [address] PCP - General Family Medicine 08/17/23 Examining Chair Assembler Relationship Specialty Start Date End Date Dank Campo MD [address] [place] [address] PCP - General Family Medicine 08/17/23 Examining Chair Assembler Relationship Specialty Start Date End Date Dank Campo MD [address] [place] [address] PCP - General Family Medicine 08/17/23 Examining Chair Assembler Relationship Specialty Start Date End Date Dank Campo MD [address] [place] [address] PCP - General Family Medicine 08/17/23 Examining Chair Assembler Relationship Specialty Start Date End Date Dank Campo MD [address] [place] [address] PCP - General Family Medicine 08/17/23 Team Status: Inactive Member Role Status Dates Dank Campo MD Primary Care Provider Active S tart: April 15, 2024 End: April 15, 2024 Rich Alvares APRN Attending Provider Active Start: April 15, 2024 End: April 15, 2024 Examining Chair Assembler Relationship Specialty Start Date End Date Dank Campo MD [address] [place] [address] PCP - General Family Medicine 08/17/23 Examining Chair Assembler Relationship Specialty Start Date End Date Dank Campo MD [address] [place] [address] PCP - General Family Medicine 08/17/23 Examining Chair Assembler Relationship Specialty Start Date End Date Dank Campo MD [address] [place] [address] PCP - General Family Medicine 08/17/23 Examining Chair Assembler Relationship Specialty Start Date End Date Dank Campo MD [address] [place] [address] PCP - General Family Medicine 08/17/23 Examining Chair Assembler Relationship Specialty Start Date End Date Dank Campo MD [address] [place] [address] PCP - General Family Medicine 08/17/23 Examining Chair Assembler Relationship Specialty Start Date End Date Dank Campo MD [address] [place] [address] PCP - General Family Medicine 08/17/23 Examining Chair Assembler Relationship Specialty Start Date End Date Dank Campo MD [address] [place] [address] PCP - General Family Medicine 08/17/23 Examining Chair Assembler Relationship Specialty Start Date End Date Dank Campo MD [address] [place] [address] PCP - General Family Medicine 08/17/23 Examining Chair Assembler Relationship Specialty Start Date End Date Dank Campo MD [address] [place] [address] PCP - General Family Medicine 08/17/23 Examining Chair Assembler Relationship Specialty Start Date End Date Dank Campo MD [address] [place] [address] PCP - General Family Medicine 08/17/23 Examining Chair Assembler Relationship Specialty Start Date End Date Dank Campo MD [address] [place] [address] PCP - General Family Medicine 08/17/23 Examining Chair Assembler Relationship Specialty Start Date End Date Dank Campo MD [address] [place] [address] PCP - General Family Medicine 08/17/23 Examining Chair Assembler Relationship Specialty Start Date End Date Dank Campo MD [address] [place] [address] PCP - General Family Medicine 08/17/23 Examining Chair Assembler Relationship Specialty Start Date End Date Dank Campo MD [address] [place] [address] PCP - General Family Medicine 08/17/23 Examining Chair Assembler Relationship Specialty Start Date End Date Dank Campo MD [address] [place] [address] PCP - General Family Medicine 08/17/23 Examining Chair Assembler Relationship Specialty Start Date End Date Dank Campo MD [address] [place] [address] PCP - General Family Medicine 08/17/23 Examining Chair Assembler Relationship Specialty Start Date End Date Dank Campo MD [address] [place] [address] PCP - General Family Medicine 08/17/23 Examining Chair Assembler Relationship Specialty Start Date End Date Dank Campo MD [address] [place] [address] PCP - General Family Medicine 08/17/23 Examining Chair Assembler Relationship Specialty Start Date End Date Dank Campo MD [address] [place] [address] PCP - General Family Medicine 08/17/23 Examining Chair Assembler Relationship Specialty Start Date End Date Dank Campo MD [address] [place] [address] PCP - General Family Medicine 08/17/23 Examining Chair Assembler Relationship Specialty Start Date End Date Dank Campo MD [address] [place] [address] PCP - General Family Medicine 08/17/23 Examining Chair Assembler Relationship Specialty Start Date End Date Dank Campo MD [address] [place] [address] PCP - General Family Medicine 08/17/23 Examining Chair Assembler Relationship Specialty Start Date End Date Dank Campo MD [address] [place] [address] PCP - General Family Medicine 08/17/23 Examining Chair Assembler Relationship Specialty Start Date End Date Dank Campo MD [address] [place] [address] PCP - General Family Medicine 08/17/23 Examining Chair Assembler Relationship Specialty Start Date End Date Dank Campo MD [address] [place] [address] PCP - General Family Medicine 08/17/23 Examining Chair Assembler Relationship Specialty Start Date End Date Dank Campo MD [address] [place] [address] PCP - General Family Medicine 08/17/23 Examining Chair Assembler Relationship Specialty Start Date End Date Dank Campo MD [address] [place] [address] PCP - General Family Medicine 08/17/23 Examining Chair Assembler Relationship Specialty Start Date End Date Dank Campo MD [address] [place] [address] PCP - General Family Medicine 08/17/23 Examining Chair Assembler Relationship Specialty Start Date End Date Dank Campo MD [address] [place] [address] PCP - General Family Medicine 08/17/23 Examining Chair Assembler Relationship Specialty Start Date End Date Dank Campo MD [address] [place] [address] PCP - General Family Medicine 08/17/23 Examining Chair Assembler Relationship Specialty Start Date End Date Dank Campo MD [address] [place] [address] PCP - General Family Medicine 08/17/23 Team Status: Inactive Member Role Status Dates Dank Campo MD Primary Care Provider Active S tart: July 30, 2024 End: July 30, 2024 Rich Alvares APRN Attending Provider Active Start: July 30, 2024 End: July 30, 2024 Examining Chair Assembler Relationship Specialty Start Date End Date Dank Campo MD [address] [facility] [address] PCP - General Family Medicine 08/17/23 Examining Chair Assembler Relationship Specialty Start Date End Date Dank Campo MD [address] [place] [facility] [address] PCP - General Family Medicine 12/10/17 Examining Chair Assembler Relationship Specialty Start Date End Date Dank Campo MD [address] [place] [facility] [address] PCP - General Family Medicine 12/10/17 Examining Chair Assembler Relationship Specialty Start Date End Date Dank Campo MD [address] [place] [facility] [address] PCP - General Family Medicine 12/10/17 Examining Chair Assembler Relationship Specialty Start Date End Date Dank Campo MD [address] [place] [facility] [place] [address] PCP - General Family Medicine 12/10/17 Examining Chair Assembler Relationship Specialty Start Date End Date Dank Campo MD [address] [place] [facility] [address] PCP - General Family Medicine 12/10/17 Examining Chair Assembler Relationship Specialty Start Date End Date Dank Campo MD [address] [place] [facility] [place] [address] PCP - General Family Medicine 12/10/17 Examining Chair Assembler Relationship Specialty Start Date End Date Dank Campo MD [address] [facility] [place] [place] [phone] PCP - General Family Medicine 12/10/17 Examining Chair Assembler Relationship Specialty Start Date End Date Dank Campo MD [address] [place] [address] PCP - General Family Medicine 03/12/24 Examining Chair Assembler Relationship Specialty Start Date End Date Dank Campo MD PCP - General Family Medicine 12/10/17 Examining Chair Assembler Relationship Specialty Start Date End Date Dank Campo MD PCP - General Family Medicine 12/10/17 Team Status: Inactive Member Role Status Dates Dank Campo MD Primary Care Provider Active S tart: 2024 End: 2024 Rich Alvares APRN Attending Provider Active Start: 2024 End: 2024 Examining Chair Assembler Relationship Specialty Start Date End Date Dank Campo MD [address] [place] [address] PCP - General Family Medicine 08/17/23 Dank Campo MD [address] [place] [address] PCP - Sadia ARMSTRONG 06/18/24 Examining Chair Assembler Relationship Specialty Start Date End Date Dank Campo MD PCP - General Family Medicine 03/12/24 Examining Chair Assembler Relationship Specialty Start Date End Date Dank Campo MD PCP - General Family Medicine 03/12/24 Examining Chair Assembler Relationship Specialty Start Date End Date Dank Campo MD PCP - General Family Medicine 03/12/24 Team Status: Inactive Member Role Status Dates Dank Campo MD Primary Care Provider Active S tart: December 23, 2024 End: December 23, 2024 Rich Alvares APRN Attending Provider Active Start: December 23, 2024 End: December 23, 2024 REASON FOR VISIT (unrecogniz ed section [...] more parameters with PAP titration Gregoria Ralph, [employer]-INTERNAL MEDICINE VETERINARY TECHNICIAN [address] [place] [address], [address] [place] [address] Referral ID Status Reason Start Date Expiration Date Visits Re quested Visits Authorized [id number] Closed 08/15/2023 08/14/2024 1 1 Reason Comments Sleep Apnea DME: [facility] Specialty Diagnoses / Procedures Referred By Anabel salinas Referred To Contact Pulmonary Medicine / Sleep Medicine Diagnoses Obstructive sleep apnea syndrome Jyoti Roth, [employer]-INTERNAL 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 Pt relates he may have to use qutenza for lower back issues. Pt also inquiring about qutenza for his neuropathy. PCP: Zoie Ross LV 07/31/24, A1C: 9.4, BS: 265 Reason Comments Shortness of Breath With raking, picking yard, steps, brisk walking. Also says lower back painCXR 10/27/24 Sleep Apnea DME: [facility] Goals (unrecognized section [...] BE BASED ON THE PRIMARY CLINICAL RECORDS. [employer] provides no warranty or guarantee of the accuracy or completeness of information in this document.
--- NOTE | 2025-01-28 09:54 | PM.CN ---
Consult Note: HPI Data of Consult Patient: known to practice within the last 3 years Consult date: 01/28/25 Requesting Physician: Sandra Vu NP Primary Care Provider: Dank Bella MD Consult Narrative Reason for consult: low back pain, bilateral foot pain Narrative: 69yom who presents for assessment. notes persistence of pain throughout low back, bilateral knees, and chronic painful diabetic polyneuropathy. knee xrays should severe bilateral knee osteoarthritis. lumbar xr shows extensive facet arthropathy. denies adverse med side effects. continue in >6 weeks of provider directed home exercises, without benefit. pt has further considered spinal cord stimulator for painful diabetic neuropathy and is interested in proceeding. cc:: CC: Sandra Vu NP Review of Systems ROS Status of ROS 10 or more systems reviewed and unremarkable except as noted in history and below Musculoskeletal Reports: back pain and extremity pain PFSH PFSH Medical History Low back pain ?M54.50 - Low back pain, unspecified (ICD-10) Neck pain ?M54.2 - Cervicalgia (ICD-10) Osteoarthritis ?M19.90 - Unspecified osteoarthritis, unspecified site (ICD-10) Anxiety ?F41.9 - Anxiety disorder, unspecified (ICD-10) Heartburn ?R12 - Heartburn (ICD-10) Hiatal hernia ?K44.9 - Diaphragmatic hernia without obstruction or gangrene (ICD-10) Acid reflux ?K21.9 - Gastro-esophageal reflux disease without esophagitis (ICD-10) Prostate cancer ?C61 - Malignant neoplasm of prostate (ICD-10) Enlarged prostate ?N40.0 - Benign prostatic hyperplasia without lower urinary tract symptoms (ICD-10) Diabetes ?E11.9 - Type 2 diabetes mellitus without complications (ICD-10) History of home ventilator ?Z99.11 - Dependence on respirator [ventilator] status (ICD-10) Smoker ?F17.200 - Nicotine dependence, unspecified, uncomplicated (ICD-10) Sleep apnea ?G47.30 - Sleep apnea, unspecified (ICD-10) COPD (chronic obstructive pulmonary disease) ?J44.9 - Chronic obstructive pulmonary disease, unspecified (ICD-10) Heart murmur ?R01.1 - Cardiac murmur, unspecified (ICD-10) Irregular heart beat ?I49.9 - Cardiac arrhythmia, unspecified (ICD-10) High cholesterol ?E78.00 - Pure hypercholesterolemia, unspecified (ICD-10) Hypertension ?I10 - Essential (primary) hypertension (ICD-10) Surgical History S/P foot surgery ?Z98.890 - Other specified postprocedural states (ICD-10) Hx laparoscopic cholecystectomy ?Z90.49 - Acquired absence of other specified parts of digestive tract (ICD-10) S/P shoulder surgery ?Z98.890 - Other specified postprocedural states (ICD-10) S/P left knee arthroscopy ?Z98.890 - Other specified postprocedural states (ICD-10) History of appendectomy ?Z90.49 - Acquired absence of other specified parts of digestive tract (ICD-10) Meds Home Medications and Allergies Home Medications ?Medication ?Instructions ?Recorded ?Confirmed ?Type aspirin 81 mg capsule 81 mg PO DAILY 10/02/23 08/18/24 History celecoxib 200 mg capsule mg 10/02/23 History insulin glargine 100 unit/mL 65 unit subcut DAILY 10/02/23 08/18/24 History subcutaneous solution (Lantus U-100 Insulin) insulin lispro 100 unit/mL subcut 10/02/23 History subcutaneous pen lansoprazole 30 mg capsule,delayed mg 10/02/23 History release lisinopril 10 mg tablet mg 10/02/23 History loperamide 2 mg capsule mg 10/02/23 History magnesium oxide 400 mg (241.3 mg mg 10/02/23 History magnesium) tablet metoprolol succinate 50 mg mg PO 10/02/23 History tablet,extended release 24 hr simvastatin 40 mg tablet mg 10/02/23 History semaglutide 1 mg/dose (4 mg/3 mL) 1 mg subcut QWEEK 11/05/23 08/18/24 History subcutaneous pen injector (Ozempic) gabapentin 300 mg capsule 300 mg PO BID #60 caps 02/28/24 08/18/24 Rx fluoxetine 20 mg capsule 20 mg PO DAILY 04/15/24 08/18/24 History tizanidine 4 mg tablet mg 07/14/24 History gabapentin 300 mg capsule 300 mg PO BID #60 caps 09/11/24 Rx gabapentin 300 mg capsule 300 mg PO BID #60 caps 12/11/24 Rx Allergies Allergy/AdvReac Type Severity Reaction Status Date / Time No Known Drug Allergies Allergy Verified 08/18/24 07:07 Exam Constitutional Documenting provider has reviewed patient's vital signs: yes Common normals: no apparent distress, oriented x3, healthy appearing, alert and well nourished General appearance: cooperative HENMT Common normals: normocephalic, hearing grossly normal bilaterally and moist oral mucous membranes Head and scalp: normocephalic Eye Common normals: PERRL Pupil: PERRL Neck & C-Spine Common normals: full ROM General: normal visual inspection Chest Common normals: inspection of chest normal Respiratory Common normals: normal respiratory effort, no retractions and no use of accessory muscles Back & Pelvis Lumbar spine/lower back: lumbar ROM normal and straight leg raise negative bilaterally; no pain with ROM, no lumbar spinal tenderness and no paraspinal muscle tenderness Other: negative facet loading strength 5/5 in BLE increased low back pain with standing, walking, yard work. pain improved with sitting and forward flexion Extremity Right lower extremity: ankle joint and foot and digits Left lower extremity: ankle joint and foot and digits Other: full ROM to bilateral feet/ankles. decreased sensation to bilateral soles of feet and with proprioception of digits on bilateral feet. warm to touch without redness edema or sores. Neuro Common normals: oriented x3 Sensorium/orientation: alert Psych Common normals: mental status grossly normal, thought process normal, cooperative, affect normal, speech normal and activity/motor behavior normal Speech: normal speech Thought process: normal thought process Results Additional Findings Additional findings: If on a controlled substance or opioids, I have checked an [place] report on this patient and there are no aberrancies noted in the prescribing history.??If on a controlled substance or opioid a drug screen was completed and reviewed within the last year, and if there has not been a drug screen completed we ordered one today to monitor higher risk, state monitored pain medication use. As part of providing excellent, safe, comprehensive care, the following was completed at our patient's visit: 1. A medication reconciliation and review to ensure accurate knowledge of current/active medications, including asking our patients to inform us about any [id number] medications or herbal remedies/nutritional supplements/alternative remedies. 2. A review to specifically ensure our patients have had annual screening for screening for depression, screening for tobacco use, and screening for unhealthy alcohol use. For concerning screenings had a discussion with the patient, provided patient education, and recommended follow-up with primary care provider when appropriate. If patient noted with a risk of falling, they received education on strength, gait, and balance training to prevent future risk of falling. Portions of this note may have been carried over from the previous visit and updated as appropriate. Please note this office utilizes paper charting in addition to the electronic medical record. A list of current medications, vitals, and PMH is available there as the clinical staff outside of myself do not have access to [employer] charting during the clinic day operations. As part of providing quality comprehensive care the current medications, vitals, and PMH were reviewed in the paper chart. Assessment and Plan Assessment and Plan (1) Painful diabetic neuropathy: (2) Lumbar spondylosis: (3) Bilateral knee pain: Qualifiers: Chronicity: chronic Qualified Code(s): M25.561 - Pain in right knee; M25.562 - Pain in left knee; G89.29 - Other chronic pain (4) Bilateral primary osteoarthritis of knee: (5) Lumbar stenosis with neurogenic claudication: Plan insurance would not cover qutenza treatments for DPN. pt has failed topical lidocaine, duloxetine, and does not want to be on gabapentin or oral medications long term care social worker to manage his pain, proceed with scs trial under fluoroscopy once psychiatric evaluation completed. pt will need to complete PAT prior to procedure for IV sedation. continue current medications f/u after scs trial
== END 2025-01-28 09:27 | disposition home or self-care (01) ==
LOC: PM 09:27
PROVIDERS: PCP Family Medicine; Visit Provider Nurse Practitioner
DX: M25.561 Pain in right knee (principal); E11.40 Type 2 diabetes mellitus with diabetic neuropathy, unspecified; M25.562 Pain in left knee; G89.29 Other chronic pain; M17.0 Bilateral primary osteoarthritis of knee; M48.062 Spinal stenosis, lumbar region with neurogenic claudication
CPT/HCPCS: G0463

== ENCOUNTER 2025-02-03 07:40 | Outpatient (OUT) | payer MEDICARE, SELFPAY ==
--- OUTSIDE RECORDS SUMMARY | 2025-02-03 07:47 | XMS_ITS | CCD ---
Author Organization [facility] Care Team Providers Care Primer Press Operator Name Role Phone DANK CAMPO Primary Care Physician MD Dank Campo Primary Care Provider [phone] MD Kike Bernal Attending Provider Asaad, Imad [...] NADERER, DR DANK Leon Primary Care Unavailable [place], DR SORIN Rodarte Consulting Unavailable NADERER, DR DANK Leon Admitting Unavailable NADERER, DR DANK Leon Attending Unavailable NADERER, DR DANK Leon Primary Care Unavailable FELIXEREGraciela, DR DANK Leon Consulting Unavailable MD Dank Campo Primary Care Provider [phone] MD Kike Bernal Attending Provider [phone] MD Dank Campo Attending Provider [phone] MD Dank Campo Attending Provider Dank Campo MD Primary Care Provider MD Dank Campo Primary Care Provider KERRI Boswell Attending Provider [phone] MD Dank Campo Referring Provider GREGORIA RALPH Referring Unavailable FELIXEREGraciela, DANK Primary Care Unavailable Peterson PETERSEN Attending Unavailable ROSALVA MURO Attending Unavailable ROSALVA MURO Admitting Unavailable Peterson PETERSEN Attending Unavailable DEJUAN PETERSEN Attending Unavailable Peterson PETERSEN Attending Unavailable Peterson PETERSEN Attending Unavailable Dank Campo MD Primary Care Provider [phone] Dank Campo MD Primary Care Provider Rich Alvares APRN Attending Provider Dank Campo Primary Care Unavailable Asaad, Imad Attending Unavailable Asaad, Imad Admitting Unavailable Naderer, Dank Admitting Unavailable Naderer, Dank Referring Unavailable Naderer, Dank Attending Unavailable Naderegraciela, Dank Primary Care Unavailable Jyoti Roth Admitting Unavailable Naderer, Dank Primary Care Unavailable Jyoti Roth Attending Unavailable Alber, Dank Admitting Unavailable Naderer, Dank Attending Unavailable Felixeregraciela, Dank Primary Care Unavailable Naderegraciela, Dank Primary Care Unavailable Rich Alvares Attending Unavailable Rich Alvares Admitting Unavailable Dank Campo MD Primary Care Provider [phone] Dank Campo MD Primary Care Provider [phone] Alber RAYMUNDO, Dank Primary Care Provider Gieditis , Andrius Vytautas Attending Unavailable Giedraitis , Andrius Vy[place]as Attending Unavailable Giedraitis , Andrius [place]as Attending Unavailable Giedraitis , Andrius [place]as Attending Unavailable Giedraitis , Andrius [place]as Attending Unavailable Giedraitis , Andrius [place] Attending Unavailable Giedraitis , Roma Arteaga Attending Unavailable Jessica RAYMUNDO, Roma Arteaga Attending Unavailable Dank Campo MD Primary Care Provider [phone] Rich Alvares APRN Attending Provider Dank Campo MD Unavailable Dank Campo MD Primary Care Provider [phone] HANNA BUTCHER Attending Unavailable NADERER, DANK Referring Unavailable NADERER, DANK Primary Care Unavailable HANNA BUTCHER Attending Unavailable NADERER, DANK Referring Unavailable NADERER, DANK Primary Care Unavailable NADERER, DANK Primary Care Unavailable HANNA BUTCHER Attending Unavailable HANNA BUTCHER Referring Unavailable NADEREGraciela, DANK Primary Care Unavailable REBECCA DIAS Referring Unavailable NADERER, DANK Primary Care Unavailable HANNA BUTCHER Attending Unavailable HANNA BUTCHER Referring Unavailable NADEREGraciela, DANK Primary Care Unavailable HANNA BUTCHER Attending Unavailable HANNA BUTCHER Referring Unavailable HANNA BUTCHER Attending Unavailable FELIXEREDANK Owens Referring Unavailable NADERER, DANK Primary Care Unavailable Dank Campo MD Primary Care Provider [phone] Rich Alvares APRN Attending Provider REBECCA DIAS Attending Unavailable ASHLI ROSS Attending Unavailable DEXTER KRISHNAMURTHY Attending Unavailable DEB MATTHEW Attending Unavailable DANK CAMPO Referring Unavailable ASHLI ROSS Attending Unavailable JR. HDEZ GEORGE C Attending Unavaila graciela HDEZ JR., GEORGE C Referring Unavaila REBECCA Crandall Attending Unavailable REBECCA DIAS Attending Unavailable ASHLI ROSS Attending Unavailable REBECCA DIAS Attending Unavailable ALMA BERKOWITZ Attending Unavailable REBECCA DIAS Referring Unavailable KADEN HICKMAN Attending Unavailable REBECCA DIAS Referring Unavailable KADEN HICKMAN Attending Unavailable REBECCA DIAS Referring Unavailable FELIXERERDANK Attending Unavailable VALENTINE SIMON Attending Unavailable REBECCA DIAS Referring Unavailable DEXTER KRISHNAMURTHY Attending Unavailable DEXTER KRISHNAMURTHY Referring Unavailable KADEN HICKMAN Attending Unavailable REBECCA DIAS Referring Unavailable NANDA WARD Attending Unavailable REBECCA DIAS Referring Unavailable ALMA BERKOWITZ Attending Unavailable REBECCA DIAS Referring Unavailable ALMA BERKOWITZ Attending Unavailable REBECCA DIAS Referring Unavailable JUSTINA CARRILLO Attending Unavailable REBECCA DIAS Referring Unavailable ALMA BERKOWITZ Attending Unavailable REBECCA DIAS Referring Unavailable REBECCA DIAS Attending Unavailable KADEN HICKMAN Attending Unavailable REBECCA DIAS Referring Unavailable ALMA BERKOWITZ Attending Unavailable REBECCA DIAS Referring Unavailable MAUREEN THOMPSON Attending Unavailable REBECCA DIAS Referring Unavailable Alber RAYMUNDO, Dank Primary Care Provider Allergies Allergy Classification Reported Allergen(s) Allergy Type Date of Onset Reaction(s) Facility (1 source) No Known Medication Allergies; Translations: [No Known Medication Allergies] Propensity to adverse reactions (disorder) [facility] Repository Medications Current Medications Medication Drug Class(es) Dates Sig (Normalized) Sig (Original) amoxicillin 875 mg oral tablet (7 sources) Penicillin-class Antibacterial Start: 07-28-2024 take 1 [...] Ordered Start: 01-30-2019 take 1 capsule by [facility] in the morning celecoxib (CeleBREX) 200 MG capsule Indications: Lumbago with sciatica, right side Take 1 capsule (200 mg) by mouth in the morning and 1 capsule (200 mg) before bedtime. 60 capsule 5 10/27/2024 Active Continuous Blood Gluc Sensor (Dexcom G7 [...] completed) Continuous Glucose Sensor (Dexcom G7 Sensor) misc (20 sources) Start: 06-13-2024 Continuous Glu cose Sensor (Dexcom G7 Sensor) mis Indications: Type 2 diabetes mellitus with diabetic polyneuropathy, with long-term current use of insulin (HCC) USE DIRECTED to check BLOOD SUGAR *change EVERY TEN days * 9 each 3 06/13/2024 Active Start: 06-13-2024 Continuous Glu cose Sensor (Dexcom G7 Sensor) misc Indications: Type [...] MG tablet Indications: JARAD (generalized anxiety disorder) ([facility]) Take 1 tablet (5 mg) by mouth [...] 10 MG PO Three times daily 90 August 05, 2024 1:00am Complies with drug therapy Start: 02-11-2020 End: 12-08-2020 take 1 tablet by mouth three times daily Dicyclomine 20 mg Tablet Discontinued 20 MG PO Three times daily February 11, 2020 12:00am December 08, 2020 9:09am empagliflozin 25 mg oral tablet (2 sources) Sodium-Glucose Cotransporter 2 Inhibitor Start: 01-28-2025 End: 07-27-2025 take 1 tablet by mouth once daily empagliflozin (Jardiance) 25 MG Indications: Type 2 diabetes mellitus with hyperglycemia, with long-term current use of insulin ([facility]) Take 1 tablet (25 mg) by mouth Daily 90 tablet 1 01/28/2025 07/27/2025 Active fluorometholone 1 mg/ml ophthalmic suspension (20 [...] MG capsule Indications: JARAD (generalized anxiety disorder) Take 1 capsule (40 mg) by mouth Daily 90 capsule 3 05/28/2024 Active Start: 10-30-2023 End: 05-28-2024 take 1 capsule by mouth in the morning FLUoxetine (PROzac) 20 mg capsule Take 1 capsule (20 mg total) by mouth in the morning. 01/07/2024 Active fluticasone 0.05 mg/inh Nasal [place] (5 sources) Start: 07-28-2019 fluticasone 0. 05 mg/inh Nasal [place] Nasal, Daily, Refill(s) 0 Start Date: 07/28/19 [...] pen injector (20 sources) Insulin Analog Start: 01-28-2025 End: 07-27-2025 inject 40 [IU] by subcutaneous injection in the morning insulin glargine (Lantus SoloStar) 100 UNIT/ML pen Indications: Type 2 diabetes mellitus with hyperglycemia, with long-term current use of insulin (HCC) Inject 40 Units under the skin in the morning and 40 Units before bedtime. 72 mL 1 01/28/2025 07/27/2025 Active Start: 08-27-2024 Lantus SoloSta r 100 UNIT/ML pen Indications: Type 2 diabetes mellitus with diabetic polyneuropathy, with long-term current use of insulin (CMS/HCC) INJECT 60 UNITS SUBCUTANEOUSLY AT BEDTIME 60 mL 3 08/27/2024 Active Start: 07-31-2024 End: 07-31-2025 insulin glargine (Lantus Pia oStar) 100 UNIT/ML pen Indications: Type 2 diabetes mellitus with diabetic polyneuropathy, with long-term current use of insulin (HCC) INJECT 70 UNITS SUBCUTANEOUSLY AT BEDTIME 60 mL 3 10/10/2024 01/28/2025 Discontinued (Dose adjustment) Start: 04-29-2024 End: 04-29-2025 insulin glargine (Lantus [...] pen injector (20 sources) Insulin Analog Start: 01-28-2025 End: 07-27-2025 insulin lispro (HumaLOG KWIKPEN) 100 UNIT/ML injection Indications: Type 2 diabetes mellitus with hyperglycemia, with long-term current use of insulin (HCC) Inject 30 Units under the skin in the morning and 30 Units at noon and 30 Units in the evening. Inject with meals. 81 mL 1 01/28/2025 07/27/2025 Active Start: 07-31-2024 End: 01-28-2025 insulin lispro (HumaLOG) 100 UNIT/ML injection Indications: Type 2 diabetes mellitus with diabetic polyneuropathy, with long-term current use of insulin (HCC) INJECT 18 UNITS BREAKFAST/LUNCH, 35 units DINNER PLUS CORRECTIONS OF 1:30 > 150MG/DL ( MAX 100 UNITS A DAY) 90 mL 3 07/31/2024 01/28/2025 Discontinued (Dose adjustment) Start: 04-29-2024 End: 07-31-2024 insulin lispro (HumaLOG) [...] End: 07-23-2025 take 1 tablet by mouth twice daily lisinopril 10 MG tablet Indications: Essential (primary) hypertension TAKE 1 TABLET BY MOUTH TWICE DAILY 60 tablet 5 12/18/2024 Active Start: 12-18-2023 End: 04-23-2024 take 1 [...] 400 mg oral tablet (20 sources) Start: 01-15-2025 take 1 tablet by mouth once daily magnesium oxide (Mag-Ox) 400 (240 Mg) MG tablet Indications: Hypomagnesemia TAKE 1 TABLET BY MOUTH DAILY 30 tablet 5 01/15/2025 Active Start: 08-09-2023 take 1 tablet by maciej th once daily Magnesium Oxide 400 mg (241.3 [...] Start: 01-30-2019 take 1 capsule by mo uth once daily Metoprolol Succinate 50 mg Capsule,Sprinkle,Er 24hr Active 50 MG PO Daily January 30, 2019 12:00am Complies with drug therapy take 1 tablet by maciej th every [...] solution pen-injector (20 sources) Start: 10-30-2023 End: 01-28-2025 inject 1 mg by subcutaneous injection every week semaglutide (Ozempic, 1 MG/DOSE,) 4 MG/3ML solution pen-injector Indications: Type 2 diabetes mellitus with diabetic polyneuropathy, with long-term current use of insulin (HCC) Inject 1 mg under the skin 1 (one) time per week 9 mL 3 10/30/2023 01/28/2025 Discontinued (Dose adjustment) Start: 10-30-2023 inject 1 mg by subcu taneous injection every week semaglutide (Ozempic, 1 MG/DOSE,) 4 MG/3ML solution pen-injector Indications: Type 2 diabetes mellitus with diabetic polyneuropathy, with long-term current use of insulin (HCC) Inject 1 mg under the skin 1 (one) time per week 9 mL 3 10/30/2023 Active Start: 10-30-2023 End: 10-29-2024 inject 1 mg by subcutaneous injection every week semaglutide (Ozempic, 1 MG/DOSE,) 4 MG/3ML solution pen-injector Indications: Type 2 diabetes mellitus with diabetic polyneuropathy, with long-term current use of insulin (CMS/HCC) Inject 1 mg under the skin 1 (one) time per week 9 mL 3 10/30/2023 10/29/2024 Active Semaglutide, 2 MG/DOSE, (Ozempic, 2 MG/DOSE,) 8 MG/3ML solution pen-injector (2 sources) Start: 01-28-2025 End: 04-28-2025 Semaglutide, 2 MG/DOSE, (Ozempic, 2 MG/DOSE,) 8 MG/3ML solution pen-injector Indications: Type 2 diabetes mellitus with hyperglycemia, with long-term current use of insulin (HCC) Inject 2 mg under the skin every 7 (seven) days 6 mL 1 01/28/2025 04/28/2025 Active Semaglutide,0.25 or 0.5MG/DOS, (Ozempic, 0.25 or [...] (Zocor) 40 MG tablet Indications: Hyperlipidemia, unspecified TAKE 1 TABLET BY MOUTH AT BEDTIME 30 tablet 5 12/18/2024 Active spironolactone 50 mg oral tablet (20 [...] Start: 04-17-2024 triamcinolone (Kenalog) 0.1 % cream 04/17/2024 Active Start: 04-17-2024 triamcinolone (Kenalog) 0.1 % cream [...] 5 days 20 tablet 04/24/2024 04/29/2024 Discontinued [id number] 200 actuat albuterol 0.09 mg/actuat metered dose inhaler (2 sources) beta2-Adrenergic Agonist Start: 12-22-2020 End: 08-15-2023 take 2 puff(s) by inhalation every four hours as needed for wheezing albuterol (PROVENTIL HFA;VENTOLIN HFA) 90 mcg/actuation inhaler Indications: Chronic obstructive pulmonary disease, unspecified COPD type ([facility]) Inhale 2 puffs every 4 (four) hours [...] Dibucaine 1 % ointment Discontinued 1 APPLIC ID Four times daily as needed for rectal [...] Fluticasone Propionate (Flonase Allergy Relief) 50 mcg/actuation Roosevelt,Suspension Discontinued 1 SPRAY INTRANASAL Daily February 11, 2020 12:00am July 24, 2022 1:24pm Start: 07-28-2019 fluticasone 0. 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 CURRENT DRUG THERAPY] Onset: 3 Episodic Other aftercare (20 sources) Long-term current use of insulin; Translations: [exterminator helper termite (current) use of insulin] Onset: 3 12-04-2022 Episodic Other aftercare (4 sources) Patient encounter status; Translations: [Other group home (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 therapy] Onset: 4 08-29-2023 Episodic Other and unspecified benign neoplasm (5 [...] fatigue] Onset: 11-19-2018 12-04-2022 Episodic Mood disorders (18 sources) Mood disorders Onset: 06-29-2020 06-29-2020 Nausea [...] Name Value Interpretation Reference Range Facility Glucose (Bld) [Mass/Vol]Orde red By: Natalia Salguero on 01-28-2025 Glucose Blood, POC 294 mg/dL [facility] - Hematology and Cell countson 01-28-2025 HbA1c (Bld) [Mass fraction] 9.7 % [facility] No Panel InformationOrdered By: Natalia Salguero on 01-28-2025 [facility] XR CHEST 2 VWSon 10-27-2024 XR CHEST 2 VWS XR CHEST 2 VWS CHEST 2 VIEWS HISTORY: Shortness of breath COMPARISON: 05/21/2019 FINDINGS: No focal airspace disease, pulmonary edema, pleural effusions, or pneumothorax. Normal cardiomediastinal silhouette. IMPRESSION: No acute cardiopulmonary disease. Finalized by Abelardo Andres MD on 10/27/2024 10:24 AM Normal [facility] HbA1c (Bld) [Mass fraction]o n 07-31-2024 Interpretation and review of laboratory results Abnormal [facility] - Hematology and Cell countson 07-31-2024 HbA1c (Bld) [Mass fraction] 9.4 % [facility] X-ray reportOrdered By: Tico Mckeon on 07-30-2024 Study report [facility] [address] [address] XRay Report Signed Patient: Milad Seymour MR#: [id number] : 1955 Acct:[id number] Age/Sex: 68 / M ADM Date: 5 Loc: XD Room: Type: [facility] CLI Attending Dr: Rich Alvares BRAIDED RUG MAKER Copies to: Rich Alvares APRN~ Ordering Provider: [...] Osvaldo Mckeon M.D.07/30/2024 11:41 PM Dictation Location: [place] [address] Transcribed By: WOODY 07/30/24 234 Dictated By: Osvaldo Mckeon MD 07/30/24 2338 Signed By: 07/30/24 [facility] Work Phone: XR KUBon 07-30-2024 XR KUB [place] [id number] XRay Report Signed Patient: Milad Seymour MR#: [id number] : 1955 Acct:[id number] Age/Sex: 68 / M ADM Date: 07/30/24 Loc: XD Room: Type: [facility] CLI Attending Dr: Rich Alvares BRAIDED RUG MAKER Copies to: Rich Alvares APRN Ordering Provider: [...] Osvaldo Mckeon M.D.07/30/2024 11:41 PM Dictation Location: [place] [address] Transcribed By: [facility] 07/30/24 2341 Dictated By: Osvaldo Mckeon MD 07/30/24 2338 Signed By: 07/30/24 2341 Normal [facility] XR Foot - left 3 [facility] Result: 3 vi ews left foot: Weight-bearing: DP, oblique, lateral: 05/29/2024: Unremarkable for fracture or stress fracture changes. Unremarkable for acute osseous or joint pathology. Incidental findings include os peroneum within the cuboid groove; enthesophyte formation at the 5th metatarsal styloid. [facility] Radiology Study observation (narrative) [facility] HbA1c (Bld) [Mass fraction]o n 04-29-2024 Interpretation and review of laboratory results Normal [facility] - Hematology and Cell countson 04-29-2024 HbA1c (Bld) [Mass fraction] 7.9 % [facility] ALL CBC WITH AUTO DIFFon BASOPHILS ABSOLUTE AUTO 0.1 [facility] Basophils/100 WBC (Bld) 0.6 % 0.2 - 2.0 % [facility] Eosinophils/100 WBC (Bld) 1.8 % 0.9 - 7.0 % [facility] Erythrocyte distribution width (RBC) [Ratio] 12.8 % 11.0 - 15.0 % [facility] Hematocrit (Bld) [Volume fraction] 40.7 % Low 42.0 - 54.0 % [facility] Hemoglobin (Bld) [Mass/Vol] 13.6 g/dL Low 14.0 - 18.0 g/dL [facility] IMMATURE GRANULOCYTES ABS AUTO 0.1 High [facility] Immature granulocytes/100 WBC (Bld) 1.2 % High 0.0 - 0.5 % [facility] Interpretation and review of laboratory results Abnormal [facility] LYMPHOCYTES ABSOLUTE AUTO 2 [facility] Lymphocytes/100 WBC (Bld) 24.2 % 20.5 - 60.0 % [facility] MCH (RBC) [Entitic mass] 30.6 pg 25.9 - 34.0 pg [facility] MCHC (RBC) [Mass/Vol] 33.4 g/dL 29.9 - 35.2 g/dL [facility] MCV (RBC) [Entitic vol] 91.7 fL 80.0 - 94.0 fL [facility] MONOCYTES ABSOLUTE AUTO 0.5 [facility] Monocytes/100 WBC (Bld) 6.3 % 1.7 - 12.0 % [facility] NEUTROPHILS ABSOLUTE AUTO 5.4 [facility] Neutrophils/100 WBC (Bld) 65.9 % 43.0 - 75.0 % [facility] Platelet mean volume (Bld) [Entitic vol] 9 fL Low 9.5 - 13.5 fL [facility] TBH EO # 0.2 [facility] TB PLT 143 Low [facility] TB RBC 4.44 Low [facility] WBC 8.2 [facility] BASIC METABOLIC PANLon 03-18 Anion gap [Moles/Vol] 9 mmol/L Normal 5-15 [facility] Comment on above: Performed By: #### P INR, CBCA, BMP #### [facility] ([id number]) [address] [place] [address] Calcium [Mass/Vol] 9.7 mg/dL Normal 8.5-10.5 [facility] Comment on above: Performed By: #### P INR, CBCA, BMP #### [facility] ([id number]) [address], [address] [place] [address] Chloride [Moles/Vol] 99 mmol/L Normal 98-109 [facility] Comment on above: Performed By: #### P INR, CBCA, BMP #### [facility] ([id number]) [address] [place] [address] CO2 [Moles/Vol] 23 mmol/L Normal 22-32 [facility] Comment on above: Performed By: #### P INR, CBCA, BMP #### [facility] ([id number]) [address] [address] [place] [address] Creatinine [Mass/Vol] 1.60 mg/dL High 0.60-1.30 [facility] Comment on above: Result Comment: METH OD TRACEABLE TO IDMS STANDARD Performed By: #### P INR, CBCA, BMP #### [facility] ([id number]) [address] [address] [place] [address] GFR/1.73 sq M.predicted among non-blacks MDRD (S/P/Bld) [Vol rate/Area] 47 mL/min/{1.73_m2} Low >59 [facility] Comment on above: Result Comment: Reported eGFR is based on the CKD-EPI 2020 equation that does not use a race coefficient. Performed By: #### P INR, CBCA, BMP #### [facility] ([id number]) [address] [address] [place] [address] Glucose [Mass/Vol] 210 mg/dL High 65-99 [facility] Comment on above: Performed By: #### P INR, CBCA, BMP #### [facility] ([id number]) [address] [address] [place] [id number] Potassium [Moles/Vol] 5.9 mmol/L High 3.5-5.0 [facility] Comment on above: Performed By: #### P INR, CBCA, BMP #### [facility] ([id number]) [address] [address] [place] [address] Sodium [Moles/Vol] 131 mmol/L Low 134-146 [facility] Comment on above: Performed By: #### P INR, CBCA, BMP #### [facility] ([id number]) [address] [address] [place] [address] Urea nitrogen [Mass/Vol] 55 mg/dL High 5-27 [facility] Comment on above: Performed By: #### P INR, CBCA, BMP #### [facility] ([id number]) [address] [address] [place] [address] CBC AND AUTO DIFFon 03-18-20 24 ABSOLUTE BASOPHIL 0.1 X10E9/L Normal 0.0-0.2 [facility] Comment on above: Performed By: #### P INR, CBCA, BMP #### [facility] ([id number]) [address] [place] [address] ABSOLUTE NEUTROPHIL 10.1 X10E9/L High 1.5-6.6 [facility] Comment on above: Performed By: #### P INR, CBCA, BMP #### [facility] ([id number]) [address] [address] [place] [address] Basophils/100 WBC (Bld) 0.4 % Normal [facility] Comment on above: Performed By: #### P INR, CBCA, BMP #### [facility] ([id number]) [address] [address] [place] [address] Eosinophils (Bld) [#/Vol] 0.1 10*3/uL Normal 0.0-0.4 [facility] Comment on above: Performed By: #### P INR, CBCA, BMP #### [facility] ([id number]) [address] [address] [place] [address] Eosinophils/100 WBC (Bld) 0.5 % Normal [facility] Comment on above: Performed By: #### P INR, CBCA, BMP #### [facility] ([id number]) [address] [address] [place] [address] Erythrocyte distribution width (RBC) [Ratio] 14.1 % Normal 11.5-15.0 [facility] Comment on above: Performed By: #### P INR, CBCA, BMP #### [facility] ([id number]) [address] [address] [place] [address] Hematocrit (Bld) [Volume fraction] 42.0 % Normal 39-49 [facility] Comment on above: Performed By: #### P INR, CBCA, BMP #### [facility] ([id number]) [address], [facility] [address] [place] [address] Hemoglobin (Bld) [Mass/Vol] 14.3 g/dL Normal 13.0-17.0 [facility] Comment on above: Performed By: #### P INR, CBCA, BMP #### [facility] ([id number]) [address], [facility] [address] [place] [address] Lymphocytes (Bld) [#/Vol] 1.8 10*3/uL Normal 1.0-3.5 [facility] Comment on above: Performed By: #### P INR, CBCA, BMP #### [facility] ([id number]) [address], [facility] [address] [place] [address] Lymphocytes/100 WBC (Bld) 14.1 % Normal [facility] Comment on above: Performed By: #### P INR, CBCA, BMP #### [facility] ([id number]) [address], [facility] [address] [place] [address] MCH (RBC) [Entitic mass] 31.7 pg Normal 27-34 [facility] Comment on above: Performed By: #### P INR, CBCA, BMP #### [facility] ([id number]) [address], [facility] [address] [place] [address] MCHC (RBC) [Mass/Vol] 34.0 g/dL Normal 32-36 [facility] Comment on above: Performed By: #### P INR, CBCA, BMP #### [facility] ([id number]) [address], [facility] [address] [place] [address] MCV (RBC) [Entitic vol] 93 fL Normal 80-100 [facility] Comment on above: Performed By: #### P INR, CBCA, BMP #### [facility] ([id number]) [address], [address] [place] [address] Monocytes (Bld) [#/Vol] 0.5 10*3/uL Normal 0-0.9 [facility] Comment on above: Performed By: #### P INR, CBCA, BMP #### [facility] ([id number]) [address], [address] [place] [address] Monocytes/100 WBC (Bld) 4.1 % Normal [facility] Comment on above: Performed By: #### P INR, CBCA, BMP #### [facility] ([id number]) [address], [address] [place] [address] Neutrophils/100 WBC (Bld) 80.9 % Normal [facility] Comment on above: Performed By: #### P INR, CBCA, BMP #### [facility] ([id number]) [address], [address] [place] [address] Platelet mean volume (Bld) [Entitic vol] 7.4 fL Normal 7-12 [facility] Comment on above: Performed By: #### P INR, CBCA, BMP #### [facility] ([id number]) [address], [address] [place] [address] Platelets (Bld) [#/Vol] 171 10*3/uL Normal 150-450 [facility] Comment on above: Performed By: #### P INR, CBCA, BMP #### [facility] ([id number]) [address], [address] [place] [address] RBC COUNT 4.51 X10E12/L Normal 4.10-5.70 [facility] Comment on above: Performed By: #### P INR, CBCA, BMP #### [facility] ([id number]) [address] [place] [address] WBC (Bld) [#/Vol] 12.5 10*3/uL High 4.0-11.0 [facility] Comment on above: Performed By: #### P INR, CBCA, BMP #### [facility] ([id number]) [address] [place] [address] CBC W Auto Differential pane l (Bld)on 03-18-2024 ABSOLUTE BASOPHIL 0.1 [facility] Comment on above: PERFORMED AT [facility] [address],[place] [address] Basophils/100 WBC (Bld) 0.4 % [facility] Eosinophils (Bld) [#/Vol] 0.1 10*3/uL [facility] Eosinophils/100 WBC (Bld) 0.5 % [facility] Erythrocyte distribution width (RBC) [Ratio] 14.1 % 11.5 - 15.0 % [facility] Hematocrit (Bld) [Volume fraction] 42.0 % 39 - 49 % [facility] Hemoglobin (Bld) [Mass/Vol] 14.3 g/dL 13.0 - 17.0 g/dL [facility] Interpretation and review of laboratory results Abnormal [facility] Lymphocytes (Bld) [#/Vol] 1.8 10*3/uL [facility] Lymphocytes/100 WBC (Bld) 14.1 % [facility] MCH (RBC) [Entitic mass] 31.7 pg 27 - 34 pg [facility] MCHC (RBC) [Mass/Vol] 34.0 g/dL 32 - 36 g/dL [facility] MCV (RBC) [Entitic vol] 93 fL 80 - 100 fL [facility] Monocytes (Bld) [#/Vol] 0.5 10*3/uL [facility] Monocytes/100 WBC (Bld) 4.1 % [facility] Neutrophils (Bld) [#/Vol] 10.1 10*3/uL High [facility] Neutrophils/100 WBC (Bld) 80.9 % [facility] Platelet mean volume (Bld) [Entitic vol] 7.4 fL 7 - 12 fL [facility] Platelets (Bld) [#/Vol] 171 10*3/uL [facility] RBC (Bld) [#/Vol] 4.51 10*6/uL [facility] WBC corrected for nucl RBC Auto (Bld) [#/Vol] 12.5 High [facility] PROTIME AND INRon 03-18-2024 INR Coag (PPP) [Relative time] 1.0 {INR} Normal 0.8-1.1 [facility] Comment on above: Performed By: #### P INR, CBCA, BMP #### [facility] ([id number]) [address], [address] [place] [address] PT Coag (PPP) [Time] 11.7 s Normal 9.8-13.2 [facility] Comment on above: Performed By: #### P INR, CBCA, BMP #### [facility] ([id number]) [address] [place] [address] Ambulatory Visit Summaryon 0 02-04-2024 Ambulatory Visit [...] Cap) fluticasone nasal (fluticasone 0.05 mg/inh Nasal [place]) insulin lispro (Insulin Lispro KwikPen 100 units/mL [...] [facility] [address], [place] [phone] Medications What How Much When Instructions Unchanged aspirin (aspirin 81 mg Oral EC Tab) By Mouth Every day Contact prescribing physician if questions or concerns Unchanged celecoxib By Mouth Contact prescribing physician if questions or concerns Unchanged fluoxetine (FLUoxetine 20 mg Cap) 1 Capsules By Mouth Contact prescribing physician if questions or concerns Unchanged fluticasone nasal (fluticasone 0.05 mg/ inh Nasal [place]) Nasal Inhalation Every day Contact prescribing physician [...] with pro (more content not included)... Normal [facility] Urology Office/Clinic Noteon 02-04-2024 Urology Office/Clinic [...] [facility] [address], [place] [phone] Additional Instructions: 1 yr w/ PSA Patient [...] 1 cap(s), Oral fluticasone 0.05 mg/inh Nasal [place], Nasal, Daily Ilumya 100 mg/mL subcutaneous solution, [...] Recorded SARS-CoV- (more content not included)... Normal [facility] Comment on above: Result Comment: Elec tronically Signed By: Peterson PETERSEN MD\.br\Date and Time Signed: 02/04/24 12:52 EDT\.br\Electronically Co-Signed By: Johana Reeves.br\Date and Time Co-Signed: 02/04/24 12:50 EDT NM gastric emptying studyon 08-22-2023 NM gastric emptying study [facility] [place] [address] [place] [address] Nuclear Medicine Report Signed Patient: Milad Seymour MR#: [id number] : 1955 Acct:[id number] Age/Sex: 67 / M ADM Date: 08/22/23 Loc: [place] Room: Type: [facility] Attending Dr: Kike Bernal MD Copies [...] Grimes Jr., D.O.08/22/2023 12:21 PM Dictation Location: [place] [address] Transcribed By: [facility] 08/22/23 1221 Dictated By: Shaheen Grimes Jr, DO 08/22/23 1215 Signed By: 08/22/23 1221 Normal [facility] Glucose Poct Glucometerson 0 08-20-2023 Glucose [Mass/Vol] 182 mg/dL Normal [facility] Comment on above: Result Comment: [facility] Glucose Reference Range is dependent on time and content of last meal. Glucose of more than 200 mg/dL in a nonstressed, ambulatory subject supports the diagnosis of Diabetes Mellitus. PERFORMED BY: [place] [address] PATHOLOGIST TRIMMING CUTTER JIANLAN SUN M.D. Performed By: #### G LULS #### Point of Care testing , Glucose [Mass/Vol] 227 mg/dL Normal [facility] Comment on above: Result Comment: [facility] Glucose Reference Range is dependent on time and content of last meal. Glucose of more than 200 mg/dL in a nonstressed, ambulatory subject supports the diagnosis of Diabetes Mellitus. PERFORMED BY: [place] [address] PATHOLOGIST TRIMMING CUTTER JEANNINE VAZQUEZ M.D. Performed By: #### G LULS #### Point of Care testing , XR pre/post mri xrayon 08-19 XR pre/post mri xray [facility] [place] [address] [place] [address] MRI Report Signed Patient: Milad Seymour MR#: [id number] : 1955 Acct:[id number] Age/Sex: 67 / M ADM Date: 08/20/23 Loc: [place] Room: Type: [facility] Attending Dr: Dank Campo MD Copies to: Dank Campo MD Ordering Provider: Dank Campo MD Date of Service: 08/20/23 MR/MR lumbar spine wo con: [id number] ([id number]) XR/XR pre/post mri xray: PRE LUMBAR MRI [...] Tom Chanel M.D.08/20/2023 1:02 PM Dictation Location: [place] [address] Transcribed By: [facility] 08/20/23 1302 Dictated By: Tom Chanel DO 08/20/23 1250 Signed By: 08/20/23 1302 Normal [facility] HbA1c (Bld) [Mass fraction]o n 07-30-2023 Interpretation and review of laboratory results Abnormal [facility] - Hematology and Cell countson 07-30-2023 HbA1c (Bld) [Mass fraction] 8.9 % [facility] Glucose Glucometer (BldC) [M ass/Vol]Ordered By: Kike Bernal on 04-27-2023 Glucose [Mass/Vol] 189 mg/dL [facility] Comment on above: Random Glucose Refer ence Range is dependent on time and content of last meal. Glucose of more than 200 mg/dL in a nonstressed, ambulatory subject supports the diagnosis of Diabetes Mellitus. No Panel InformationOrdered By: Kike Bernal on 04-27-2023 Bedside Glucose Comment Glu2: cleaned meter [facility] Patient Educationon 02-13-20 Patient Education Oncology [...] external be (more content not included)... Normal [facility] Reminderson 02-12-2023 Reminders - From: Johana Reeves To: EU - Recalls Nicola; Sent: 02/12/2023 17:56:32 EDT Show up: 01/13/2024 17:56:00 EDT Subject: PSA prior to appt Reminder Message Please Remember to:_have pt get PSA done prior to appt in 1 year. Normal [facility] Urology Office/Clinic Noteon 02-12-2023 Urology [...] [facility] [address], [place] [phone] Additional Instructions: 1 yr w/ PSA Patient [...] TID celecoxib, Oral fluticasone 0.05 mg/inh Nasal [place], Nasal, Daily Insulin Lispro KwikPen 100 units/mL [...] used for this result was chemiluminescence using [employer]'s Access [employer] PSA reagent. PSA Total 0.5 ng/mL 11/28/2022 11:31 EDT The concentration of P (more content not included)... Normal [facility] Comment on above: Result Comment: Elec [...] celecoxib fluticasone nasal (fluticasone 0.05 mg/inh Nasal [place]) lansoprazole lisinopril metformin metoprolol (metoprolol 25 mg ER Tab) simvastatin Procedures Performed Laparoscopic cholecystectomy (03/2021), Radiation (01/16/2020), Transrectal biopsy of prostate using ultrasound (US) guidance (09/23/2019), Transrectal biopsy of prostate using ultrasound (US) guidance (09/03/2018), Appendectomy, Colonoscopy, Tonsillectomy. What to do next Scheduled Follow-Up Appointments Sunday 9:15 AM EDT With: NICOLA RAYMUNDO, Peterson Owens Where: [facility] CHEMISTRYOrdered By: SYSTEM SYSTEM on 02-06-2023 Prostate specific Ag [Mass/Vol] 0.4 ng/mL Normal 0.1 - 3.5 ng/mL [facility] Remisol PSA Totalon 02-06-2023 Prostate specific Ag [Mass/Vol] 0.4 ng/mL Normal 0.1-3.5 [facility] Comment on above: Result Comment: The concentration of PSA determined by different manufacturers can vary due to differences in assay methods and reagent specificity. Values obtained from different assay methods cannot be used interchangeably. The methodology used for this result was chemiluminescence using [employer]'s Access [employer] PSA reagent. Performed By: #### 1 [id number] #### [facility] [address] [place] [address] PANCREATIC ELASTASE FECALon 09-24-2022 Pancreatic Elastase, Fecal 467 ug Elast./g Normal >200 [facility] Comment on above: Result Comment: Nicolle re Pancreatic Insufficiency: <100 Moderate Pancreatic Insufficiency: 100 - 200 Normal: >200 Performed By: #### C PEPT #### [facility] [address] [place], [place] [address] Dr. Stewart De La Cruz POTASSIUM, FECALon 3 Potassium, Stool 57 mmol/L Normal [facility] Comment on above: Result Comment: INTE RPRETIVE INFORMATION: Fecal Potassium A reference interval has not been established for fecal specimens. This test was developed and its performance characteristics determined by [employer]. It has not been cleared or approved by the [place] Food and Drug Administration. This test was performed in a CLIA certified laboratory and is intended for clinical purposes. Performed By: #### C PEPT #### [facility] [address] [place] [address] [address] Stewart De La Cruz SODIUM, FECALon 09-17-2022 Sodium, Stool 65 mmol/L Normal [facility] Comment on above: Result Comment: INTE RPRETIVE INFORMATION: Fecal Sodium A reference interval has not been established for fecal specimens. This test was developed and its performance characteristics determined by [employer]. It has not been cleared or approved by the [place] Food and Drug Administration. This test was performed in a CLIA certified laboratory and is intended for clinical purposes. Performed By: #### F ECALN #### [facility] [address] [place] [address] Dr. Stewart De La Cruz CALPROTECTIN, FECALon 2022 Calprotectin, Fecal 43 ug/g Normal 0-120 [facility] Comment on above: Result Comment: Conc entration Interpretation Follow-Up <16 - 50 ug/g Normal None >50 -120 ug/g Borderline Re-evaluate in 4-6 weeks >120 ug/g Abnormal Repeat as clinically indicated Performed By: #### C [place] #### [facility] [address] [place] [address] Dr. Stewart De La Cruz C-PEPTIDE, SERUMon 3 C-Peptide, Serum 6.5 ng/mL Critically high 1.1-4.4 [facility] Comment on above: Result Comment: C-Pe ptide reference interval is for fasting patients. Performed By: #### C [place] #### [facility] [address] [place] [address] Dr. Stewart De La Cruz HIV 1 AND 2 WITH REFLEXon HIV Screen 4th Generation wRfx Non-Reactive Normal Non Reactive [facility] Comment on above: Result Comment: HIV Negative HIV-1/HIV-2 antibodies and HIV-1 p24 antigen were NOT detected. There is no laboratory evidence of HIV infection. Performed By: #### C [place] #### [facility] [address] [place] [address] Dr. Stewart De La Cruz INSULINon 09-13-2022 Insulin 13.9 uIU/mL Normal 2.6-24.9 [facility] Comment on above: Performed By: #### C [place] #### [facility] [address] [place] [address] Dr. Stewart De La Cruz POTASSIUM, FECALon Potassium, Stool QNSMT Normal [facility] Comment on above: Result Comment: Test not performed. One specimen was submitted with requests for multiple tests. The requested testing requires a separate specimen for each test requested. contacted Keesha at your facility on 09-13-2022 Performed By: #### C [place] #### [facility] [address] [place] [address] Dr. Stewart De La Cruz SODIUM, FECALon 09-13-2022 Sodium, Stool QNSMT Normal [facility] Comment on above: Result Comment: Test not performed. One specimen was submitted with requests for multiple tests. The requested testing requires a separate specimen for each test requested. contacted Keesha at your facility on 09-13-2022 Performed By: #### F ECALN #### [facility] [address] [place] [address] Dr. Stewart De La Cruz CBC AUTO DIFFon 09-12-2022 BASO # 0.1 103/ul Normal 0.0-0.1 [facility] Comment on above: Performed By: #### C [place] #### [facility] [address] [place] [address] Dr. Stewart De La Cruz Basophils/100 WBC (Bld) 1.2 % Normal 0.2-2.0 [facility] Comment on above: Performed By: #### C [place] #### [facility] [address] [place] [address] Dr. Stewart De La Cruz EO # 0.3 103/ul Normal 0.0-0.7 [facility] Comment on above: Performed By: #### C PEPT #### [facility] [address] [place] [address] Dr. Stewart De La Cruz Eosinophils/100 WBC (Bld) 4.5 % Normal 0.9-7.0 [facility] Comment on above: Performed By: #### C PEPT #### [facility] [address] [place] [address] Dr. Stewart De La Cruz Erythrocyte distribution width (RBC) [Ratio] 12.9 % Normal 11.0-15.0 [facility] Comment on above: Performed By: #### C PEPT #### [facility] [address] [place] [address] Dr. Stewart De La Cruz Hematocrit (Bld) [Volume fraction] 44.6 % Normal 42.0-54.0 [facility] Comment on above: Performed By: #### C PEPT #### [facility] [address] [place] [address] Dr. Stewart De La Cruz Hemoglobin (Bld) [Mass/Vol] 14.9 g/dL Normal 14.0-18.0 [facility] Comment on above: Performed By: #### C PEPT #### [facility] [address] [place] [address] Dr. Stewart De La Cruz IG # 0.03 10e3/ul Normal 0.00-0.03 [facility] Comment on above: Performed By: #### C PEPT #### [facility] [address] [place] [address] Dr. Stewart De La Cruz IG % 0.5 % Normal 0.0-0.5 [facility] Comment on above: Performed By: #### C PEPT #### [facility] [address] [place] [address] Dr. Stewart De La Cruz LYMPH # 1.1 103/ul Critically low 1.2-3.8 [facility] Comment on above: Performed By: #### C PEPT #### [facility] [address] [place] [address] Dr. Stewart De La Cruz Lymphocytes/100 WBC (Bld) 18.5 % Critically low 20.5-60.0 [facility] Comment on above: Performed By: #### C PEPT #### [facility] [address] [place] [address] Dr. Stewart De La Cruz MANUAL DIFF REQ NO Normal [facility] Comment on above: Performed By: #### C PEPT #### [facility] [address] [place] [address] Dr. Stewart De La Cruz MCH (RBC) [Entitic mass] 29.2 pg Normal 25.9-34.0 [facility] Comment on above: Performed By: #### C PEPT #### [facility] [address] [place] [address] [address] Stewart De La Cruz MCHC (RBC) [Mass/Vol] 33.4 g/dL Normal 29.9-35.2 [facility] Comment on above: Performed By: #### C PEPT #### [facility] [address] [place] [address] [address] Stewart De La Cruz MCV (RBC) [Entitic vol] 87.5 fL Normal 80.0-94.0 [facility] Comment on above: Performed By: #### C PEPT #### [facility] [address] [place] [address] Dr. Stewart De La Cruz MONO # 0.4 103/ul Normal 0.3-0.8 [facility] Comment on above: Performed By: #### C PEPT #### [facility] [address] [place] [address] Dr. Stewart De La Cruz Monocytes/100 WBC (Bld) 6.8 % Normal 1.7-12.0 [facility] Comment on above: Performed By: #### C PEPT #### [facility] [address] [place] [address] Dr. Stewart De La Cruz NEUT # 4.2 103/ul Normal 1.4-6.5 [facility] Comment on above: Performed By: #### C PEPT #### [facility] [address] [place] [address] Dr. Stewart De La Cruz Neutrophils/100 WBC (Bld) 68.5 % Normal 43.0-75.0 [facility] Comment on above: Performed By: #### C PEPT #### [facility] [address] [place] [address] Dr. Stewart De La Cruz Platelet mean volume (Bld) [Entitic vol] 9.8 fL Normal 9.5-13.5 [facility] Comment on above: Performed By: #### C PEPT #### [facility] [address] [place] [address] Dr. Stewart De La Cruz PLT 133 103/ul Critically low 150-[address] [facility] Comment on above: Performed By: #### C PEPT #### [facility] [address] [place] [address] [address] Stewart De La Cruz RBC 5.10 106/ul Normal 4.70-6.10 [facility] Comment on above: Performed By: #### C PEPT #### [facility] [address] [place] [address] Dr. Stewart De La Cruz WBC 6.1 103/ul Normal 4.0-11.0 [facility] Comment on above: Performed By: #### C PEPT #### [facility] [address] [place] [address] Dr. Stewart De La Cruz CRPon 09-12-2022 CRP [Mass/Vol] mg/L Normal <=1.0 [facility] Comment on above: Performed By: #### C RP #### [facility] [address] [place] [address] Dr. Stewart De La Cruz GLYCOHEMOGLOBIN A1Con 2022 ADA RECOMMENDATION SEE BELOW Normal [facility] Comment on above: Result Comment: ADA RECOMMENDED LIMIT 4.0 - 6.0 ADA THERAPEUTIC TARGET < 7.0 ACTION SUGGESTED > 7.0 Performed By: #### A 1C #### [facility] [address] [place] [address] Dr. Stewart De La Cruz Glucose [Mass/Vol] 278 mg/dL Normal [facility] Comment on above: Performed By: #### A 1C #### [facility] [address] [place] [address] Dr. Stewart De La Cruz HbA1c (Bld) [Mass fraction] 11.3 % Critically high 4.5-6.2 [facility] Comment on above: Performed By: #### A 1C #### [facility] [address] [place] [address] Dr. Stewart De La Cruz PROF CHEM 8 (BAS METB)on Anion gap [Moles/Vol] 16.9 mmol/L Normal [facility] Comment on above: Performed By: #### C PEPT #### [facility] [address] [place] [address] Dr. Stewart De La Cruz Calcium [Mass/Vol] 9.3 mg/dL Normal 8.5-10.1 [facility] Comment on above: Performed By: #### C PEPT #### [facility] [address] [place] [address] Dr. Stewart De La Cruz Chloride [Moles/Vol] 103 mmol/L Normal 98-107 [facility] Comment on above: Performed By: #### C PEPT #### [facility] [address] [place] [address] Dr. Stewart De La Cruz CO2 [Moles/Vol] 26.0 mmol/L Normal 21.0-32.0 [facility] Comment on above: Performed By: #### C PEPT #### [facility] [address] [place] [address] Dr. Stewart De La Cruz Creatinine [Mass/Vol] 1.43 mg/dL Critically high 0.70-1.30 [facility] Comment on above: Performed By: #### C PEPT #### [facility] [address] [place] [address] Dr. Stewart eD La Cruz EGFR-AF ECUADOREAN 60 mL/min/1.73m2 Normal >=60 [facility] Comment on above: Performed By: #### C PEPT #### [facility] [address] [place] [address] Dr. Stewart De La Cruz EGFR-NON AF ECUADOREAN 49 mL/min/1.73m2 Critically low >=60 [facility] Comment on above: Performed By: #### C PEPT #### [facility] [address] [place] [address] Dr. Stewart De La Cruz Glucose [Mass/Vol] 293 mg/dL Critically high 74-106 [facility] Comment on above: Performed By: #### C PEPT #### [facility] [address] [place] [address] Dr. Stewart De La Cruz Potassium [Moles/Vol] 4.9 mmol/L Normal 3.5-5.1 [facility] Comment on above: Performed By: #### C PEPT #### [facility] [address] [place] [address] Dr. Stewart De La Cruz Sodium [Moles/Vol] 141 mmol/L Normal 136-145 [facility] Comment on above: Performed By: #### C PEPT #### [facility] [address] [place] [address] [address] Stewart De La Cruz Urea nitrogen [Mass/Vol] 32.0 mg/dL Critically high 7.0-18.0 [facility] Comment on above: Performed By: #### C PEPT #### [facility] [address] [place] [address] [address] Stewart De La Cruz Urea nitrogen/Creatinine [Mass ratio] 22.4 mg/mg Normal [facility] Comment on above: Performed By: #### C PEPT #### [facility] [address] [place] [address] [address] Stewart De La Cruz [facility] SED [facility]ATE 17 mm/hr Normal <=20 [facility] Comment on above: Performed By: #### S EDR #### [facility] [address] [place] [address] Dr. Stewart De La Cruz RAD EGD - documentation only do not orderon 07-25-2022 RAD EGD - documentation only do not order [employer] Other Glucose Glucometer (BldC) [M ass/Vol]Ordered By: Kike Bernal on 07-24-2022 Glucose [Mass/Vol] 275 mg/dL [facility] Comment on above: Random Glucose Refer ence Range is dependent on time and content of last meal. Glucose of more than 200 mg/dL in a nonstressed, ambulatory subject supports the diagnosis of Diabetes Mellitus. GLYCOHEMOGLOBIN A1Con 2021 ADA RECOMMENDATION SEE BELOW Normal [facility] Comment on above: Result Comment: ADA RECOMMENDED LIMIT 4.0 - 6.0 ADA THERAPEUTIC TARGET < 7.0 ACTION SUGGESTED > 7.0 Performed By: #### A 1C #### [facility] [address] [address] [address] Stewart De La Cruz Glucose [Mass/Vol] 235 mg/dL Normal [facility] Comment on above: Performed By: #### A 1C #### [facility] [address] [address] [address] Stewart De La Cruz HbA1c (Bld) [Mass fraction] 9.8 % Critically high 4.5-6.2 [facility] Comment on above: Performed By: #### A 1C #### [facility] [address] [address] [address] Stewart De La Cruz GLYCOHEMOGLOBIN A1Con 2021 ADA RECOMMENDATION SEE BELOW Normal [facility] Comment on above: Result Comment: ADA RECOMMENDED LIMIT 4.0 - 6.0 ADA THERAPEUTIC TARGET < 7.0 ACTION SUGGESTED > 7.0 Performed By: #### A 1C #### [facility] [address] [address] [address] Stewart De La Cruz Glucose [Mass/Vol] 197 mg/dL Normal [facility] Comment on above: Performed By: #### A 1C #### [facility] [address] [place] [address] Dr. Stewart De La Cruz HbA1c (Bld) [Mass fraction] 8.5 % Critically high 4.5-6.2 [facility] Comment on above: Performed By: #### A 1C #### [facility] [address] [place] [address] Dr. Stewart De La Cruz PSA, FREE AND TOTAL RATIOon 01-28-2022 % Free PSA 30.0 % Normal [facility] Comment on above: Result Comment: The [...] men. Performed By: #### P SAFREE #### [facility] [address] [place] [address] Dr. Stewart De La Cruz Prostate specific Ag [Mass/Vol] 0.1 ng/mL Normal 0.0-4.0 [facility] Comment on above: Result Comment: Nina jaime ECLIA methodology. . According to the [employer] [employer], Serum PSA should decrease and [...] disease. Performed By: #### P SAFREE #### [facility] [address] [place] [address] Dr. Stewart De La Cruz PSA, Free 0.03 ng/mL Normal N/A [facility] Comment on above: Result Comment: Nina jaime ECLIA methodology. Performed By: #### P SAFMILDRED #### [facility] [address] [place] [address] Dr. Stewart De La Cruz GLYCOHEMOGLOBIN A1Con 2021 ADA RECOMMENDATION SEE BELOW Normal [facility] Comment on above: Result Comment: ADA RECOMMENDED LIMIT 4.0 - 6.0 ADA THERAPEUTIC TARGET < 7.0 ACTION SUGGESTED > 7.0 Performed By: #### A 1C #### [facility] [address] [place] [address] Dr. Stewart De La Cruz Glucose [Mass/Vol] 192 mg/dL Normal [facility] Comment on above: Performed By: #### A 1C #### [facility] [address] [place] [address] Dr. Stewart De La Cruz HbA1c (Bld) [Mass fraction] 8.3 % Critically high 4.5-6.2 [facility] Comment on above: Performed By: #### A 1C #### [facility] [address] [place] [address] Dr. Stewart De La Cruz CNOVon 02-01-2021 CNOV Office Visit (RADTSA ) -- MILAD SEYMOUR ([id number]) 1955 M Date Time Provider Department 02/01/21 [...] cc: Dank Campo MD (Dr) [id number] Petersen Portions of the above note extracted and edited from previous visit as well as active information included in the EMR. Referring Provider: Fawad DIAZ [[id number]] Allergies As of Date: 02/01/2021 (No Known Allergies) Date Reviewed: 02/01/2021 Reviewed by: Tila Herrera LPN - Fully Assessed Reason for Visit: Prostate Cancer [590] Primary Visit Diagnosis:Malignant neoplasm of prostate (HCC) [C61] Order(s):PSA/PROSTSPECAG DIAG [SQPSA] Order #: [id number] FUTURE Prescriptions as of 02/03/2021 - aspirin, [...] magnesium) t (more content not included)... Normal [facility] PSA, Diagnosticon 01-25-2021 PSA, Diagnostic 0.29 ng/mL Normal 0.00-2.59 [facility] Comment on above: Result Comment: Sandra manzo PSA test methodology used is the Electrochemiluminescence Immunoassay. Performed By: #### P SA #### [facility] [employer] [address] [place], [place] [address] OBSOLETEon 12-22-2020 OBSOLETE Refill (RADTSA) -- MILAD SEYMOUR ([id number]) 1955 Date Time Provider Department 12/22/20 Fawad DIAZ [...] Status:Closed by TILA HERRERA on 01/04/21 [facility] CNOVon 11-03-2020 CNOV Office Visit (RADTSA ) -- MILAD SEYMOUR ([id number]) 1955 M Date Time Provider Department 11/03/20 4:00 PM LAB/PORT RADT ADAM MUNGUIAEdward During your visit today, we recorded the following information about you: Referring Provider: Fawad DIAZ [[id number]] Allergies As of Date: 11/03/2020 (No Known [...] Status:Closed by TILA HERRERA on 11/03/[address] [facility] CNOV Office Visit (RADTSA ) -- MILAD SEYMORU ([id number]) 1955 M Date Time Provider Department 11/03/20 [...] Fawad Diaz MD cc: Dank Campo MD ([facility]) [address] [place] [id number] [address] Petersen Referring Provider: Fawad DIAZ [[id number]] Allergies As of Date: 11/03/2020 (No Known Allergies) Date Reviewed: 11/03/2020 Reviewed by: Fawad Diaz MD - Fully Assessed Reason for Visit: Prostate Cancer [590] Primary Visit Diagnosis:Malignant neoplasm of prostate (HCC) [C61] Order(s):PSA/PROSTSPECAG DIAG [SQPSA] Order #: [id number] FUTURE Prescriptions as of 11/03/2020 Sig: TAMSULOSIN [...] 30 mg (more content not included)... Normal [facility] PSA, Diagnosticon 11-01-2020 PSA, Diagnostic 0.27 ng/mL Normal 0.00-2.59 [facility] Comment on above: Result Comment: Tota l PSA test methodology used is the Electrochemiluminescence Immunoassay. Performed By: #### P SA #### [facility] [address] [place], [place] [address] Giuseppe 10-29-2020 CLAUDY Telephone (RADTSA) -- MILAD SEYMOUR ([id number]) 1955 M Date Time Provider Department 10/29/20 [...] since completing radiation therapy. Call transferred to [facility] to move up appointment. Dr. [...] (HCC) [C61] Order(s):PSA/PROSTSPECAG DIAG [SQPSA] Order #: [id number] FUTURE Prescriptions as of 10/29/2020 Sig: TAMSULOSIN [...] Encounter Status:Closed by TILA HERRERA on 10/29/20 [facility] 10-08-2020 [facility] -- MILAD SEYMOUR ([id number]) 1955 M Date Time Provider Department 10/08/20 HEATHER BARRIGA During your visit today, we recorded the following information about you: Allergies As of Date: 10/08/2020 (No Known Allergies) Date Reviewed: 07/14/2020 Reviewed by: Joann Richardson - Fully Assessed Reason for Visit: Lab Orders [5308] Primary Visit Diagnosis:Iron deficiency anemia due to chronic blood loss [D50.0] Order(s):CBC + DIFF (FOR REMOTE [facility] USE) [SQRCBCDF] Order #: [id number] FUTURE COMP METABOLIC PANEL [SQCMP] Order #: [id number] FUTURE Prescriptions as of 10/08/2020 Sig: TAMSULOSIN [...] Status:Closed by TASHA GOOD on 10/14/20 [facility] OBSOLETEon 09-20-2020 OBSOLETE Refill (RADTSA) -- MILAD SEYMOUR ([id number]) 1955 M Date Time Provider Department 09/20/20 [...] Status:Closed by TILA HERRERA on 10/14/[address] [facility] Vital Signs Date Time Vital Sign Value Performing Clinician Facility 01-28-2025 11:20-040 Body height 174 cm Deb Matthew MD Work Phone: [facility] 01-28-2025 11:20-0400 Body mass index (BMI) [Ratio] 38.66 kg/m2 Deb Matthew MD Work Phone: [facility] 01-28-2025 11:20-040 Body weight 117.03 kg Deb Matthew MD Work Phone: [facility] 01-28-2025 11:20-0400 Diastolic blood pressure 70 mm[Hg] Deb Matthew MD Work Phone: [facility] 01-28-2025 11:20-0400 Heart rate 75 /min Deb Matthew MD Work Phone: [facility] 01-28-2025 11:20-0400 Respiratory rate 16 /min Deb Matthew MD Work Phone: [facility] 01-28-2025 11:20-0400 SaO2% (BldA) [Mass fraction] 96 % Deb Matthew MD Work Phone: [facility] 01-28-2025 11:20-0400 Systolic blood pressure 122 mm[Hg] Deb Matthew MD Work Phone: [facility] 12-23-2024 14:09-0400 Body height 175.26 cm Dank Campo MD Work Phone: [facility] 12-23-2024 14:09-0400 Body mass index (BMI) [Ratio] 37.6 kg/m2 Dank Campo MD Work Phone: [facility] 12-23-2024 14:09-0400 Body weight 115.66 kg Dank Campo MD Work Phone: [facility] 12-23-2024 14:09-0400 Diastolic blood pressure 67 mm[Hg] Dank Campo MD Work Phone: [facility] 12-23-2024 14:09-0400 Heart rate 83 /min Dank Campo MD Work Phone: [facility] 12-23-2024 14:09-0400 Systolic blood pressure 101 mm[Hg] Dank Campo MD Work Phone: [facility] 10-27-2024 10:30-0400 Body height 175.3 cm Hanna Butcher MD Work Phone: [facility] 10-27-2024 10:30-0400 Body mass index (BMI) [Ratio] 38.02 kg/m2 Hanna Butcher MD Work Phone: [facility] 10-27-2024 10:30-0400 Body weight 116.85 kg Hanna Butcher MD Work Phone: [facility] 10-27-2024 10:30-0400 Diastolic blood pressure 73 mm[Hg] Hanna Butcher MD Work Phone: [facility] 10-27-2024 10:30-0400 Heart rate 79 /min Hanna Butcher MD Work Phone: [facility] 10-27-2024 10:30-0400 SaO2% (BldA) [Mass fraction] 97 % Hanna Butcher MD Work Phone: [facility] 10-27-2024 10:30-0400 Systolic blood pressure 114 mm[Hg] Hanna Butcher MD Work Phone: [facility] 2024 15:05-0400 Body height 175.26 cm Dank Campo MD Work Phone: [facility] 2024 15:05-0400 Body mass index (BMI) [Ratio] 37.6 kg/m2 Dank Campo MD Work Phone: [facility] 2024 15:05-0400 Body weight 115.66 kg Dank Campo MD Work Phone: [facility] 07-31-2024 10:32-0500 Body height 177.8 cm Ashli Petznick DO Work Phone: [facility] 07-31-2024 10:32-0500 Body mass index (BMI) [Ratio] 37.02 kg/m2 Ashli Petznick DO Work Phone: [facility] 07-31-2024 10:32-0500 Body temperature 97.9 [degF] Ashli Petznick DO Work Phone: [facility] 07-31-2024 10:32-0500 Body weight 117.03 kg Ashli Petznick DO Work Phone: [facility] 07-31-2024 10:32-0500 Diastolic blood pressure 70 mm[Hg] Ashli Petznick DO Work Phone: [facility] 07-31-2024 10:32-0500 Heart rate 78 /min Ashli Petznick DO Work Phone: [facility] 07-31-2024 10:32-0500 SaO2% (BldA) [Mass fraction] 97 % Ashli Petznick DO Work Phone: [facility] 07-31-2024 10:32-0500 Systolic blood pressure 108 mm[Hg] Ashli Petznick DO Work Phone: [facility] 07-30-2024 14:11-0500 Body height 175.26 cm [facility] 07-30-2024 14:11-0500 Body mass index (BMI) [Ratio] 38.4 kg/m2 [facility] 07-30-2024 14:11-0500 Body weight 117.93 kg [facility] 05-29-2024 14:51-0500 Body height 177.8 cm Dexter Krishnamurthy DPM Work Phone: [facility] 05-29-2024 14:51-0500 Body mass index (BMI) [Ratio] 36.88 kg/m2 Dexter Krishnamurthy DPM Work Phone: [facility] 05-29-2024 14:51-0500 Body weight 116.57 kg Dexter Krishnamurthy DPM Work Phone: [facility] 05-28-2024 07:38-0500 Body height 177.8 cm Dank Campo MD Work Phone: [facility] 05-28-2024 07:38-0500 Body mass index (BMI) [Ratio] 36.88 kg/m2 Dank Campo MD Work Phone: [facility] 05-28-2024 07:38-0500 Body temperature 97.11 [degF] Dank Campo MD Work Phone: [facility] 05-28-2024 07:38-0500 Body weight 116.57 kg Dank Campo MD Work Phone: [facility] 05-28-2024 07:38-0500 Diastolic blood pressure 72 mm[Hg] Dank Campo MD Work Phone: [facility] 05-28-2024 07:38-0500 Heart rate 104 /min Dank Campo MD Work Phone: [facility] 05-28-2024 07:38-0500 Respiratory rate 18 /min Dank Campo MD Work Phone: [facility] 05-28-2024 07:38-0500 SaO2% (BldA) [Mass fraction] 97 % Dank Campo MD Work Phone: [facility] 05-28-2024 07:38-0500 Systolic blood pressure 136 mm[Hg] Dank Campo MD Work Phone: [facility] 04-29-2024 10:46-0500 Body height 177.8 cm Ashli Petznick DO Work Phone: [facility] 04-29-2024 10:46-0500 Body mass index (BMI) [Ratio] 35.61 kg/m2 Ashli Petznick DO Work Phone: [facility] 04-29-2024 10:46-0500 Body temperature 96.1 [degF] Ashli Petznick DO Work Phone: [facility] 04-29-2024 10:46-0500 Body weight 112.58 kg Ashli Petznick DO Work Phone: [facility] 04-29-2024 10:46-0500 Diastolic blood pressure 78 mm[Hg] Ashli Petznick DO Work Phone: [facility] 04-29-2024 10:46-0500 Heart rate 84 /min Ashli Petznick DO Work Phone: [facility] 04-29-2024 10:46-0500 SaO2% (BldA) [Mass fraction] 97 % Ashli Petznick DO Work Phone: [facility] 04-29-2024 10:46-0500 Systolic blood pressure 124 mm[Hg] Ashli Ross DO Work Phone: [facility] 04-15-2024 09:08-0400 Body height 175.26 cm [facility] 04-15-2024 09:08-0400 Body mass index (BMI) [Ratio] 36.1 kg/m2 [facility] 04-15-2024 09:08-0400 Body weight 111.13 kg [facility] 04-08-2024 10:00-0400 Body height 177.8 cm Rebecca Dias PA Work Phone: [facility] 04-08-2024 10:00-0400 Body mass index (BMI) [Ratio] 35.73 kg/m2 Rebecca Dias PA Work Phone: [facility] 04-08-2024 10:00-0400 Body weight 112.95 kg Rebecca Dias PA Work Phone: [facility] 03-18-2024 08:28-0400 Body height 177.8 cm Rebecca FREY Work Phone: [facility] 03-18-2024 08:28-0400 Body mass index (BMI) [Ratio] 35.73 kg/m2 Rebecca FREY Work Phone: [facility] 03-18-2024 08:28-0400 Body weight 112.95 kg Rebecca Dias PA Work Phone: [facility] 03-17-2024 10:19-0400 Body height 175.26 cm [facility] 03-17-2024 10:19-0400 Body mass index (BMI) [Ratio] 37 kg/m2 [facility] 03-17-2024 10:19-0400 Body weight 114 kg [facility] 02-25-2024 10:29-0400 Body height 175.3 cm Hanna Butcher MD Work Phone: [facility] 02-25-2024 10:29-0400 Body mass index (BMI) [Ratio] 37.01 kg/m2 Hanna Butcher MD Work Phone: [facility] 02-25-2024 10:29-0400 Body weight 113.67 kg Hanna Butcher MD Work Phone: [facility] 02-25-2024 10:29-0400 Diastolic blood pressure 60 mm[Hg] Hanna Butcher MD Work Phone: [facility] 02-25-2024 10:29-0400 Heart rate 77 /min Hanna Butcher MD Work Phone: [facility] 02-25-2024 10:29-0400 SaO2% (BldA) [Mass fraction] 98 % Hanna Butcher MD Work Phone: [facility] 02-25-2024 10:29-0400 Systolic blood pressure 108 mm[Hg] Hanna Butcher MD Work Phone: [facility] 02-04-2024 11:45-0400 Diastolic blood pressure 74 mm[Hg] Peterson PETERSEN [facility] 02-04-2024 11:45-0400 Heart rate 66 /min Peterson PETERSEN [facility] 02-04-2024 11:45-0400 Respiratory rate 16 /min Peterson PETERSEN [facility] 02-04-2024 11:45-0400 Systolic blood pressure 116 mm[Hg] Peterson PETERSEN [facility] 12-13-2023 22:34-0400 Body height 175.3 cm [facility] 3 [facility] 12-13-2023 22:34-0400 Body mass index (BMI) [Ratio] 36.77 kg/m2 [facility] 3 [facility] 12-13-2023 22:34-0400 Body weight 112.[address] 08-15-2023 13:35-0500 Diastolic blood pressure 60 mm[Hg] Gregoria Ralph [employer] Work Phone: [facility] 08-15-2023 13:35-0500 Systolic blood pressure 107 mm[Hg] Gregoriamyah Ralph [employer] Work Phone: [facility] 08-15-2023 13:33-0500 Body height 175.3 cm Gregoriamyah Ralph [employer] Work Phone: [facility] 08-15-2023 13:33-0500 Body mass index (BMI) [Ratio] 36.77 kg/m2 Gregoriamyah Ralph [employer] Work Phone: [facility] 08-15-2023 13:33-0500 Body weight 112.95 kg Gregoriamyah Ralph [employer] Work Phone: [facility] 08-15-2023 13:33-0500 Heart rate 81 /min Gregoriamyah Ralph [employer] Work Phone: [facility] 08-15-2023 13:33-0500 SaO2% (BldA) [Mass fraction] 95 % Gregoriamyah Ralph [employer] Work Phone: [facility] 07-30-2023 11:16-0500 Body height 177.8 cm Ashli Petznick DO Work Phone: [facility] [employer] 07-30-2023 11:16-0500 Body mass index (BMI) [Ratio] 36.16 kg/m2 Ashli Petznick DO Work Phone: [facility] [employer] 07-30-2023 11:16-0500 Body temperature 98.01 [degF] Ashli Petznick DO Work Phone: [facility] [employer] 07-30-2023 11:16-0500 Body weight 114.31 kg Ashli Petznick DO Work Phone: [facility] 07-30-2023 11:16-0500 Diastolic blood pressure 62 mm[Hg] Ashli Petznick DO Work Phone: [facility] 07-30-2023 11:16-0500 Heart rate 66 /min Ashli Petznick DO Work Phone: [facility] 07-30-2023 11:16-0500 SaO2% (BldA) [Mass fraction] 97 % Ashli Petznick DO Work Phone: [facility] 07-30-2023 11:16-0500 Systolic blood pressure 116 mm[Hg] Ashli Petznick DO Work Phone: [facility] 07-17-2023 09:22-0500 Diastolic blood pressure 73 mm[Hg] MD Dank Campo Work Phone: [facility] 07-17-2023 09:22-0500 Heart rate 70 /min MD Dank Campo Work Phone: [facility] 07-17-2023 09:22-0500 Respiratory rate 18 /min MD Dank Campo Work Phone: [facility] 07-17-2023 09:22-0500 SaO2% (BldA) [Mass fraction] 97 % MD Dank Campo Work Phone: [facility] 07-17-2023 09:22-0500 Systolic blood pressure 173 mm[Hg] MD Dank Campo Work Phone: [facility] 07-17-2023 09:20-0500 Body height 177.8 cm MD Dank Campo Work Phone: [facility] 07-17-2023 09:20-0500 Body weight 111.13 kg MD Dank Campo Work Phone: [facility] 04-27-2023 12:40-0500 Diastolic blood pressure 68 mm[Hg] MD Dank Campo Work Phone: [facility] 04-27-2023 12:40-0500 Heart rate 75 /min MD Dank Campo Work Phone: [facility] 04-27-2023 12:40-0500 Respiratory rate 16 /min MD Dank Campo Work Phone: [facility] 04-27-2023 12:40-0500 SaO2% (BldA) [Mass fraction] 97 % MD Dank Campo Work Phone: [facility] 04-27-2023 12:40-0500 Systolic blood pressure 110 mm[Hg] MD Dank Campo Work Phone: [facility] 04-27-2023 10:29-0500 Body height 177.8 cm MD Dank Campo Work Phone: [facility] 04-27-2023 10:29-0500 Body weight 113.39 kg MD Dank Campo Work Phone: [facility] 04-10-2023 14:00-0400 Body height 177.8 cm Imad Asaad Other [employer] Other 04-10-2023 14:00-0400 Body mass index (BMI) [Ratio] 36.3 kg/m2 Imad Asaad Other [employer] Other 04-10-2023 14:00-0400 Body weight 114.76 kg Imad Asaad Other [employer] Other 04-10-2023 14:00-0400 Diastolic blood pressure 68 mm[Hg] Imad Asaad Other [employer] Other 04-10-2023 14:00-0400 Systolic blood pressure 113 mm[Hg] Imad Asaad Other [employer] Other 02-12-2023 09:46-0400 Blood Pressure Location Peterson PETERSEN [facility] 02-12-2023 09:46-0400 Diastolic blood pressure 90 mm[Hg] Peterson PETERSEN [facility] 02-12-2023 09:46-0400 Heart rate 68 /min Peterson PETERSEN [facility] 02-12-2023 09:46-0400 Respiratory rate 16 /min Peterson PETERSEN [facility] 02-12-2023 09:46-0400 Systolic blood pressure 138 mm[Hg] Peterson PETERSEN [facility] 07-24-2022 13:52-0500 Diastolic blood pressure 78 mm[Hg] MD Dank Campo Work Phone: [facility] 07-24-2022 13:52-0500 Heart rate 71 /min MD Dank Campo Work Phone: [facility] 07-24-2022 13:52-0500 Respiratory rate 16 /min MD Dank Campo Work Phone: [facility] 07-24-2022 13:52-0500 SaO2% (BldA) [Mass fraction] 96 % MD Dank Campo Work Phone: [facility] 07-24-2022 13:52-0500 Systolic blood pressure 136 mm[Hg] MD Dank Campo Work Phone: [facility] 07-24-2022 12:29-0500 Body height 177.8 cm MD Dank Campo Work Phone: [facility] 07-24-2022 12:29-0500 Body temperature 98 [degF] MD Dank Campo Work Phone: [facility] 07-24-2022 12:29-0500 Body weight 115.66 kg MD Dank Campo Work Phone: [facility] 07-20-2022 10:00-0500 Body height 177.8 cm Imad Asaad Other [employer] Other 07-20-2022 10:00-0500 Body mass index (BMI) [Ratio] 36.73 kg/m2 Imad Asaad Other [employer] Other 07-20-2022 10:00-0500 Body weight 116.12 kg Imad Asaad Other [employer] Other 07-20-2022 10:00-0500 Diastolic blood pressure 96 mm[Hg] Imad Asaad Other [employer] Other 07-20-2022 10:00-0500 Systolic blood pressure 170 mm[Hg] Imad Asaad Other [facility] [employer] Other 02-03-2022 08:29-0400 Blood Pressure Location Peterson PETERSEN [facility] 02-03-2022 08:29-0400 Diastolic blood pressure 88 mm[Hg] Peterson PETERSEN [facility] 02-03-2022 08:29-0400 Heart rate 75 /min Petersonpercy PETERSEN [facility] 02-03-2022 08:29-0400 Respiratory rate 16 /min Peterson PETERSEN [facility] 02-03-2022 08:29-0400 Systolic blood pressure 138 mm[Hg] Peterson NICOLA [facility] Encounters Encounter Date Encounter Type Care Provider Facility Start: 02-09-2025 ambulatory Peterson PETERSEN Facili ty:[facility] Start: 02-02-2025 End: 02-02-2025 Telephone encounter [facility] Start: 01-28-2025 End: 01-28-2025 Bamboo flowsheet Deb Matthew [facility] Start: 01-28-2025 End: 01-28-2025 [employer] flowsheet Deb Matthew MD [facility] Start: 01-28-2025 End: 01-28-2025 Office outpatient new 45 minutes Deb Matthew MD Work Phone: [facility] Comment on above: Type 2 diabetes yoselin itus with hyperglycemia, with long-term current use of insulin (HCC) (Primary Dx); Primary hypertension ; Insulin long-term use (HCC); Hyperlipemia, mixed ; Encounter for dietary consultation; Class 2 severe obesity due to excess calories with serious comorbidity and body mass index (BMI) of 38.0 to 38.9 in adult ([facility]-HCC); Stage 3b chronic kidney disease ([facility]-HCC); Type 2 diabetes mellitus with diabetic polyneuropathy, with long-term current use of insulin (HCC) Start: 01-28-2025 End: 01-28-2025 ambulatory DEB MATTHEW Not Available Start: 12-23-2024 End: 12-23-2024 ambulatory Dank Campo MD Work Phone: [facility] Work Phone: Start: 12-23-2024 End: 12-23-2024 Patient encounter procedure Rich Scott [facility] Work Phone: Start: 12-02-2024 End: 12-02-2024 ambulatory HANNA BUTCHER [facility] Start: 12-02-2024 End: 12-02-2024 Office outpatient visit 15 minutes Hanna Butcher MD Work Phone: [facility] Comment on above: SOB (shortness of br eath) (Primary Dx); Personal history of tobacco use, presenting hazards to health; Obstructive sleep apnea syndrome Start: 11-17-2024 End: 11-17-2024 ambulatory DANK CAMPO [facility] Start: 10-27-2024 End: 10-27-2024 Office outpatient visit 15 minutes Hanna Butcher MD Work Phone: [facility] Comment on above: SOB (shortness of br eath) (Primary Dx) Start: 10-27-2024 End: 10-27-2024 ambulatory HANNA BUTCHER [facility] Start: 10-21-2024 End: 10-21-2024 Telephone encounter Nadiya [facility] Pul[facility]Sleep [facility] Start: 09-24-2024 End: 09-24-2024 ambulatory DEXTER KRISHNAMURTHY Not Available Start: 09-24-2024 End: 09-24-2024 Office outpatient visit 15 minutes Dexter Krishnamurthy DP Work Phone: [facility] Comment on above: Diabetic polyneuropa thy associated with type 2 diabetes mellitus (CMS/HCC) (Primary Dx); Encounter for long-term (current) use of insulin (CMS/HCC); Chronic painful diabetic neuropathy (CMS/HCC); 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 Work Phone: Start: 08-04-2024 End: 08-04-2024 ambulatory Roma Lopez MD Facility: [facility] Start: 07-31-2024 End: 07-31-2024 ambulatory ASHLI Scott CODY Not Available Start: 07-31-2024 End: 07-31-2024 Office [...] disease, with long-term current use of insulin ([facility]) ([facility]); Type 2 diabetes mellitus with hyperglycemia, with long-term current use of insulin ([facility]/HCC) Start: 07-30-2024 End: 07-30-2024 ambulatory Dank Campo MD Work Phone: [facility] Work Phone: Start: 07-30-2024 End: 07-30-2024 Patient encounter procedure [facility] Work Phone: Start: 07-23-2024 End: 07-23-2024 Bamboo flowsheet Rebecca FREY Work Phone: [facility] Start: 07-23-2024 End: 07-23-2024 Bamboo flowsheet Rebecca Dias PA Work Phone: [facility] Start: 07-23-2024 End: 07-23-2024 ambulatory REBECCA DIAS Not Available Start: 07-23-2024 End: 07-23-2024 Postop follow up visit related to original px Rebecca FREY Work Phone: [facility] Comment on above: S/P arthroscopy of l eft shoulder (Primary Dx) Start: 07-21-2024 End: 07-21-2024 Bamboo flowsheet Kaden Hickman PUTTY MIXER AND APPLIER [facility] Start: 07-21-2024 End: 07-21-2024 Bamboo flowsheet Kaden Hickman [employer]UT[employer] M[employer]ER [employer]PLIER [facility] Start: 07-21-2024 End: 07-21-2024 ambulatory Roma Lopez MD Facility:[facility] Start: 07-14-2024 End: 07-14-2024 ambulatory Piedadrius Chandler Lopez MD Facility:[facility] Start: 07-07-2024 End: 07-07-2024 Bamboo flowsheet Maureen Thompson [employer] M[employer] [facility] Start: 07-07-2024 End: 07-07-2024 Bamboo flowsheet Maureenrah Thompson PUT[employer] M[employer]ER [employer] [facility] Start: 07-07-2024 End: 07-07-2024 ambulatory Maureen Thompson PUT[employer] M[employer]ER [employer] APPL[employer] [facility] Comment on above: Left [...] Start: 06-26-2024 End: 06-26-2024 Bamboo flowsheet Kaden Bridger PUTTY MIXER [employer] APPLIER [facility] Start: 06-26-2024 End: 06-26-2024 Bamboo flowsheet Kaden Bridger PUTTY MIXER [employer] APPLIER [facility] Start: 06-26-2024 End: 06-26-2024 ambulatory Kaden Bridger [employer] M[employer] [facility] Comment on above: Left [...] Start: 06-05-2024 End: 06-05-2024 ambulatory Nanda Petr [employer] [facility] Comment on above: Left shoulder pain, unspecified chronicity (Primary Dx); S/P arthroscopy of left shoulder Start: 06-03-2024 End: 06-03-2024 Telephone encounter Dank Campo MD Work Phone: [facility] Start: 06-02-2024 End: 06-02-2024 Bamboo flowsheet Kaden Hickman P[employer] M[employer]ER [employer] [facility] Start: 06-02-2024 End: 06-02-2024 Bamboo flowsheet Kaden Hickman PUTTY MIXER [employer] APPLIER [facility] Start: 06-02-2024 End: 06-02-2024 ambulatory Kaden Hickman PUT[employer] M[employer] APPL[employer] [facility] Comment on above: Left [...] 05-26-2024 End: 05-26-2024 Bamboo flowsheet Kaden Hickman PUT[employer] M[employer]ER [employer] APPL[employer] [facility] Start: 05-26-2024 End: 05-26-2024 Bamboo flowsheet Kaden Hickman PUTTY MIXER [employer] APPLIER [facility] Start: 05-26-2024 End: 05-26-2024 ambulatory Kaden Hickman [employer] [facility] Comment on above: S/P arthroscopy of l eft shoulder (Primary Dx); Left shoulder pain, unspecified chronicity Start: 05-19-2024 End: 05-19-2024 ambulatory Kaden Hickman [employer] [facility] Comment on above: S/P arthroscopy of l eft shoulder (Primary Dx) Start: 05-13-2024 End: 05-13-2024 ambulatory ALMA BERKOWITZ Not Available Start: 05-13-2024 End: 05-13-2024 ambulatory Alma Berkowitz PT [facility] Comment on above: S/P arthroscopy of l eft shoulder (Primary Dx) Start: 05-12-2024 End: 05-12-2024 Telephone encounter Valentine Simno PT Work Phone: [facility] Comment on above: PO PT Eval (Tried to contact to schedule PO PT Eval for L shoulder scope, that was on 04/25; requested a call back dolores.); Call Back (He contacted and we scheduled PT Eval 05/13 and then continued out 2x/2's a week up to 06/05/24.) Start: 05-09-2024 End: 05-09-2024 Bamboo flowsaaliyah FREY Work Phone: [facility] Start: 05-09-2024 End: 05-09-2024 Bamboo flowsaaliyah FREY Work Phone: [facility] Start: 05-09-2024 End: 05-09-2024 Postop follow up visit related to original px Rebecca FREY Work Phone: [facility] Comment on above: S/P arthroscopy of l eft shoulder (Primary Dx) Start: 05-09-2024 End: 05-09-2024 ambulatory REBECCA DIAS Not Available Start: 04-29-2024 End: 04-29-2024 Office outpatient visit 25 minutes Ashli Ross DO Work Phone: [facility] 230 Comment on above: Class 2 severe obesi ty due to excess calories with serious comorbidity and body mass index (BMI) of 35.0 to 35.9 in adult ([facility]/HCC) (Primary Dx); Type 2 diabetes mellitus with diabetic polyneuropathy, with long-term current use of insulin ([facility]); Type 2 diabetes mellitus with stage 3a chronic kidney disease, with long-term current use of insulin ([facility]) ([facility]); Long-term insulin use ([facility]) Start: 04-29-2024 End: 04-29-2024 ambulatory ASHLI ROSS Not Available Start: 04-24-2024 End: 04-24-2024 Refill Fredy Boswell NP Work Phone: [facility] Comment on above: Internal derangement of left shoulder (Primary Dx) Start: 04-23-2024 End: 04-23-2024 Telephone encounter Dank Campo MD Work Phone: [facility] Start: 04-21-2024 End: 04-21-2024 ambulatory Roma Lopez MD Facility:[facility] Start: 04-18-2024 End: 04-18-2024 Clinisync Result Encounter Generic External Data Provider [facility] External Department Unsolicited Start: 04-18-2024 End: 04-18-2024 Clinisync Result Encounter Generic External Data Provider [facility] External Department Unsolicited Start: 04-15-2024 End: 04-15-2024 ambulatory [facility] Work Phone: Start: 04-15-2024 End: 04-15-2024 Patient encounter procedure [facility] Work Phone: Start: 04-08-2024 End: 04-08-2024 Bamboo flowsheet Rebecca Dias PA Work Phone: [facility] Start: 04-08-2024 End: 04-08-2024 Bamboo flowsheet Rebecca FREY Work Phone: [facility] Start: 04-08-2024 End: 04-08-2024 Patient encounter procedure Rebecca FREY Work Phone: [facility] Comment on above: Pre-op examination ( Primary Dx); Preop examination Start: 04-08-2024 End: 04-08-2024 Preprocedural examination done Rebecca FREY Work Phone: [facility] Work Phone: Start: 04-08-2024 End: 04-08-2024 ambulatory REBECCA DIAS Not Available Start: 03-24-2024 End: 03-25-2024 Refill Fredy Boswell NP Work Phone: [facility] Comment on above: Internal derangement of left shoulder (Primary Dx) Start: 03-18-2024 End: 03-18-2024 Bamboo flowsheet Rebecca FREY Work Phone: [facility] Start: 03-18-2024 End: 03-18-2024 Bamboo flowsheet Rebecca FREY Work Phone: [facility] Start: 03-18-2024 End: 03-18-2024 External Result Encounter Rebecca FREY Work Phone: [facility] External Department Unsolicited Start: 03-18-2024 End: 03-18-2024 Orders Only Rebecca FREY Work Phone: [facility] Comment on above: Encounter for other preprocedural examination Start: 03-18-2024 End: 03-18-2024 Patient encounter status Rebecca FREY Work Phone: [facility] Start: 03-18-2024 End: 03-18-2024 Telephone encounter Rebecca FREY Work Phone: [facility] Start: 03-18-2024 Encounter for other preprocedural examination DANK [facility] Start: 03-18-2024 End: 03-18-2024 Patient encounter procedure Rebecca FREY Work Phone: [facility] Comment on above: Preop examination (P rimary Dx) Start: 03-18-2024 End: 03-18-2024 Preprocedural examination done Rebecca FREY Work Phone: [facility] Healthcare Start: 03-18-2024 End: 03-18-2024 ambulatory [facility] Start: 03-17-2024 End: 03-17-2024 Telephone encounter Ashli Ross DO Work Phone: [facility] 230 Start: 03-17-2024 End: 03-17-2024 ambulatory [facility] Work Phone: Start: 03-17-2024 End: 03-17-2024 Patient encounter procedure [facility] Work Phone: Start: 03-12-2024 End: 03-12-2024 ambulatory [facility] Start: 03-10-2024 End: 03-10-2024 ambulatory Roma Lopez MD Facility:[facility] Start: 03-03-2024 End: 03-03-2024 Office outpatient visit 25 minutes Jr. Johanne Hdez DO Work Phone: [facility] Comment on above: Internal derangement of left shoulder (Primary Dx); Acute pain of left shoulder Start: 03-03-2024 End: 03-03-2024 ambulatory JOHANNE MURILLO Not Available Start: 03-03-2024 End: 03-03-2024 Juan Jose Hdez DO Work Phone: [facility] Start: 03-03-2024 End: 03-03-2024 Juan Jose Hdez DO Work Phone: [facility] Start: 02-28-2024 End: 02-28-2024 Telephone encounter [facility] Butcher MD [facility] Start: 02-25-2024 End: 02-25-2024 Office outpatient visit 15 minutes Hanna Butcher MD Work Phone: [facility] Comment on above: Obstructive sleep ap toñito syndrome (Primary Dx); Personal history of tobacco use, presenting hazards to health Start: 02-25-2024 End: 02-25-2024 ambulatory HANNA BUTCHER [facility] Start: 02-04-2024 End: 02-04-2024 Telephone encounter Dexter Krishnamurthy DP Work Phone: [facility] Comment on above: Advice Only (Self Pa y Shoes) Start: 02-04-2024 End: 02-04-2024 ambulatory Peterson PETERSEN Facility:[facility] Start: 02-04-2024 End: 02-04-2024 Patient encounter procedure Peterson PETERSEN [facility] Start: 01-31-2024 End: 01-31-2024 ambulatory ASHLI ROSS Not Available Start: 01-28-2024 End: 01-28-2024 ambulatory Peterson PETERSEN Facility:[facility] Start: 01-28-2024 End: 01-28-2024 Patient encounter procedure Peterson PETERSEN [facility] Start: 01-03-2024 End: 01-03-2024 Telephone encounter Oskar Contreras MD Work Phone: [facility] Start: 12-13-2023 End: 12-15-2023 ambulatory GREGORIA RALPH [facility] Comment on above: Obstructive sleep ap toñito syndrome; CSA (central sleep apnea) Start: 12-06-2023 End: 12-06-2023 Orders Only Gregoria Ralph BRAIDED RUG MAKER-LEAD RAMP SERVICE MAN Work Phone: [facility] Pulmonary/Sleep Medicine Comment on above: Obstructive sleep ap toñito syndrome (Primary Dx) Start: 12-05-2023 End: 12-05-2023 Telephone encounter Aliza Crenshaw Pulmonary/Sleep Medicine Start: 11-05-2023 End: 11-05-2023 ambulatory Roma Lopez MD Facility:[facility] Start: 10-30-2023 End: 10-30-2023 ambulatory Jyoti Roth Facility:[facility] Start: 10-15-2023 End: 10-15-2023 ambulatory Roma Lopez MD Facility:[facility] Start: 10-01-2023 End: 10-01-2023 ambulatory Roma Lopez MD Facility:[facility] Start: 08-27-2023 Telephone encounter Aliza Crenshaw Pulmonary/Sleep Medicine Start: 08-22-2023 End: 08-22-2023 ambulatory Dank Campo Facility:[facility] Start: 08-20-2023 End: 08-20-2023 ambulatory Dank Campo Facility:[facility] Start: 08-17-2023 Telephone encounter Gregoria shields BRAIDED RUG MAKER-LEAD RAMP SERVICE MAN Work Phone: [facility] - Sleep Disorders Comment on above: Sleep Lab (CPAP) Start: 08-15-2023 End: 08-15-2023 Office outpatient visit 25 minutes Gregoria Ralph BRAIDED RUG MAKER-LEAD RAMP SERVICE MAN Work Phone: [facility] Comment on above: Personal history of tobacco use, presenting hazards to health (Primary Dx); Obstructive sleep apnea syndrome; CSA (central sleep apnea) Start: 08-09-2023 End: 08-09-2023 Patient encounter procedure MD Dank Campo Work Phone: [facility]-Pre-Surgical Testing Work Phone: Start: 08-09-2023 End: 08-09-2023 ambulatory MD Dank Campo Work Phone: [facility] Work Phone: Start: 08-02-2023 Telephone encounter Aliza Recinos Physicians [...] (BMI) of 36.0 to 36.9 in adult ([facility]) (Primary Dx); Type 2 diabetes mellitus with diabetic polyneuropathy, with long-term current use of insulin ([facility]) Start: 07-24-2023 End: 07-24-2023 Patient encounter procedure MD Dank Campo Work Phone: [facility]-XRay [facility] [place] Work Phone: Start: 07-17-2023 End: 07-17-2023 ambulatory MD Dank Campo Work Phone: [facility] Work Phone: Start: 07-17-2023 End: 07-17-2023 Patient encounter procedure MD Dank Campo Work Phone: [facility]-MRI [facility] [place] Work Phone: Start: 06-26-2023 End: 06-26-2023 ambulatory MD Dank Campo Work Phone: [facility] Work Phone: Start: 06-26-2023 End: 06-26-2023 Patient encounter procedure MD Dank Campo Work Phone: [facility]-MRI [address] Work Phone: Start: 04-27-2023 End: 04-27-2023 Admission to same day surgery center MD Dank Campo Work Phone: [facility]-Digestive Health Work Phone: Start: 04-27-2023 End: 04-27-2023 ambulatory MD Dank Campo Work Phone: [facility] Work Phone: Start: 04-10-2023 End: 04-10-2023 ambulatory Imad Asaad Other [employer] Other Start: 04-10-2023 Office outpatient ne w 45 minutes Imad Asaad [facility] Start: 03-20-2023 End: 03-20-2023 ambulatory Imad Asaad Other [employer] Other Start: 03-20-2023 Telephone encounter Imad Asaad [facility] Start: 02-12-2023 End: 02-12-2023 ambulatory Peterson PETERSEN Facility:[facility] Start: 02-12-2023 End: 02-12-2023 Patient encounter procedure Peterson PETERSEN [facility] Start: 02-06-2023 End: 02-06-2023 Lab Drop off ROSALVA MURO [facility] Start: 02-06-2023 End: 02-06-2023 ambulatory ROSALVA MURO Facility:[facility] Start: 02-06-2023 End: 02-06-2023 Patient encounter procedure DEJUAN PETERSEN [facility] Start: 10-17-2022 End: 10-18-[address] DANK CAMPO Facility: Start: 09-20-2022 End: 09-20-2022 ambulatory Imad Asaad Other [employer] Other Start: 09-20-2022 Telephone encounter Imad Asaad [facility] Start: 09-14-2022 End: 09-14-[address] DANK CAMPO Facility:[facility] Start: 09-12-2022 End: 09-13-[address] DANK CAMPO Facility:[facility] Start: 07-24-2022 Telephone encounter Imad Asaad [facility] Start: 07-24-2022 End: 07-24-2022 Admission to same day surgery center MD Dank Campo Work Phone: [facility] Work Phone: Start: 07-24-2022 End: 07-24-2022 ambulatory MD Dank Campo Work Phone: [facility] Work Phone: Start: 07-20-2022 End: 07-20-2022 ambulatory Imad Asaad Other [employer] Other Start: 07-20-2022 Patient encounter procedure Imad Asaad [facility] Start: 05-10-2022 End: 05-11-[address] DANK CAMPO Facility:[facility] Start: 04-14-2022 End: 04-15-[address] SORIN SHORE Facility:[facility] Start: 02-03-2022 End: 02-03-2022 Patient encounter procedure Peterson PETERSEN [facility] Start: 01-30-2022 End: 01-31-2022 ambulatory MR REBECCA DIAS . Facility:[facility] Start: 01-27-2022 End: 01-28-[address] PETERSON PETERSEN . Facility:[facility] Procedures Date Procedure Procedure Detail Performing Clinician Start: 01-28-2025 Gluc bld gluc mntr dev cleared fda spec home use Deb Matthew MD Work Phone: Start: 07-31-2024 Hemoglobin glycosylated a1c Ashli green DO Work Phone: Start: 07-30-2024 Supine abdominal X-ray Dank Campo MD Work Phone: Start: 05-29-2024 Radex foot complete minimum 3 views Dexter Leon Joe DPM Work Phone: Start: 04-29-2024 Hemoglobin glycosylated [...] 04-27-2033 Screening for malignant neoplasm of colon [facility] Start: 01-20-2031 DTaP,Tdap and Td Vaccines (3 - Td or Tdap) DTaP,Tdap and Td Vaccines (3 - Td or Tdap) [facility] Start: 01-20-2031 DTaP,Tdap and Td Vaccines (4 - Td or Tdap) DTaP,Tdap and Td Vaccines (4 - Td or Tdap) [facility] Start: 02-10-2030 Screening for malignant neoplasm of colon [facility] Start: 10-21-2026 Glaucoma screening Diabetes: Retinopathy Screening [facility] Start: 10-27-2025 Adult BMI Screening Adult BMI Screening [facility] Start: 10-27-2025 Tobacco Screening Tobacco Screening [facility] Start: 08-27-2025 Glaucoma screening Diabetes: Retinopathy Screening [facility] Start: 05-25-2025 End: 05-25-2025 Patient encounter procedure 05/25/2025 9:45 AM EST Office Visit [facility] [address] [place] [address] Hanna Butcher MD [address] [place] [address] [facility] Start: 04-30-2025 Hemoglobin A1c measurement Diabetes: Hemoglobin A1C [facility] Start: 04-29-2025 End: 04-29-2025 Patient encounter procedure 04/29/2025 11:10 AM EST Office Visit [facility] [address] [place] [address] Deb Matthew MD [address] [place] [address] [facility] Start: 03-09-2025 End: 03-09-2025 Patient encounter procedure 03/09/2025 9:00 AM EDT [facility] [address] [place] [address] Hanna Butcher MD [address] [place] [address] [facility] Start: 02-24-2025 Adult BMI Screening Adult BMI Screening [facility] Start: 02-24-2025 Tobacco Screening Tobacco Screening [facility] Start: 02-16-2025 Influenza vaccination [facility] Start: 01-28-2025 End: 01-28-2026 25-hydroxyvitamin D3 [Mass/volume] in Serum or Plasma Vitamin D 25 hydroxy Total Lab Routine Type 2 diabetes mellitus with hyperglycemia, with long-term current use of insulin (HCC) Expected: 01/28/2025 (Approximate), Expires: 01/28/2026 [facility] Comment on above: Expected: 01/28/2025 (Approximate), Expi res: 01/28/2026 Start: 01-28-2025 End: 01-28-2026 C-peptide C-peptide Lab Routine Type 2 diabetes mellitus with hyperglycemia, with long-term current use of insulin (HCC) Expected: 01/28/2025 (Approximate), Expires: 01/28/2026 [facility] Work Phone: Comment on above: Expected: 01/28/2025 (Approximate), Expi res: 01/28/2026 Start: 01-28-2025 End: 01-28-2026 Lipid 1996 panel - Serum or Plasma Lipid panel Lab Routine Type 2 diabetes mellitus with hyperglycemia, with long-term current use of insulin (HCC) Expected: 01/28/2025 (Approximate), Expires: 01/28/2026 [facility] Comment on above: Expected: 01/28/2025 (Approximate), Expi res: 01/28/2026 Start: 01-28-2025 End: 01-28-2026 Microalbumin/Creatinine panel in random Urine Microalbumin / creatinine urine ratio Lab Routine Type 2 diabetes mellitus with hyperglycemia, with long-term current use of insulin (HCC) Expected: 01/28/2025 (Approximate), Expires: 01/28/2026 [facility] Comment on above: Expected: 01/28/2025 (Approximate), Expi res: 01/28/2026 Start: 01-28-2025 End: 01-28-2026 Renal function panel Renal function panel Lab Routine Type 2 diabetes mellitus with hyperglycemia, with long-term current use of insulin (HCC) Expected: 01/28/2025 (Approximate), Expires: 01/28/2026 [facility] Comment on above: Expected: 01/28/2025 (Approximate), Expi res: 01/28/2026 Start: 01-28-2025 End: 01-28-2025 Patient encounter procedure 01/28/2025 11:10 AM EDT Office Visit [facility] [address] [place] [address] Deb Matthew MD [address] [place] [address] Type 2 diabetes mellitus with hyperglycemia, with long-term current use of insulin (HCC) [facility] Comment on above: Type 2 diabetes mellitus with hyperglyce jessica, with long-term current use of insulin (HCC) Start: 12-12-2024 Adult BMI Screening Adult BMI Screening [facility] Start: 12-02-2024 End: 12-02-2024 Patient encounter procedure 12/02/2024 12:45 PM EDT Office Visit [facility] [address] [place] [address] Hanna Butcher MD [address] [place] [address] [facility] Start: 10-30-2024 End: 10-30-2024 Patient encounter procedure 10/30/2024 11:15 AM EDT Office Visit [facility] [address] [place] [address] RasheedaRah penalozarafa Scott, DO [address] [place] [address] [facility] Start: 10-28-2024 Hemoglobin A1c measurement Diabetes: Hemoglobin A1C [facility] Start: 10-21-2024 End: 10-21-2025 XR Chest PA and Lateral X-ray chest 2 views Imaging Routine SOB (shortness of breath) Expected: 10/21/2024, Expires: 10/21/2025 [facility] Work Phone: Comment on above: Expected: 10/21/2024, Expires: Start: 09-03-2024 Urine screening for protein Diabetes: Urine Protein Screening [facility] Start: 08-27-2024 End: 08-27-2024 Patient encounter procedure 08/27/2024 7:30 AM EDT Office Visit [facility] [address] [place] [address] Dank Campo MD [address] [place] [address] [facility] Start: 08-22-2024 End: 08-22-2024 ambulatory 08/22/2024 8:00 AM EST Treatment [facility] [address] [facility] [place] [address] Alma Berkowitz, PT [facility] Start: 08-18-2024 End: 08-18-2024 ambulatory 08/18/2024 7:30 AM EST Treatment [facility] [address] [facility] [place] [address] [place] [address] Kaden Hickman, PUTTY MIXER AND APPLIER [facility] Start: 08-15-2024 Adult BMI Screening Adult BMI Screening [facility] Start: 08-15-2024 Tobacco Screening Tobacco Screening [facility] Start: 08-14-2024 End: 08-14-2024 ambulatory 08/14/2024 8:00 AM EST Treatment [facility] [address] [place] [address] Alma Berkowitz, PT [facility] Start: 08-11-2024 End: 08-11-2024 ambulatory 08/11/2024 7:30 AM EST Treatment [facility] [address] [place] [address] Kaden Hickman, PUTTY MIXER AND APPLIER [facility] Start: 08-07-2024 End: 08-07-2024 ambulatory 08/07/2024 8:00 AM EST Treatment [facility] [address] [place] [address] Alma Berkowitz, PT [facility] Start: 08-04-2024 End: 08-04-2024 ambulatory 08/04/2024 7:30 AM EST Treatment [facility] [address] [place] [address] Kaden Hickman, [employer] [facility] Start: 07-31-2024 End: 07-31-2024 Patient encounter procedure 07/31/2024 10:30 AM EST Office Visit [facility] [address] [facility] [address] [place] [address] Ashli Ross, [address] [place] [address] [facility] Start: 07-31-2024 End: 07-31-2024 ambulatory 07/31/2024 8:00 AM EST Treatment [facility] [address] [place] [address] Kaden Hickman, [employer] [facility] Start: 07-30-2024 Hemoglobin A1c measurement Diabetes: Hemoglobin A1C [facility] Start: 07-28-2024 End: 07-28-2024 ambulatory [facility] Start: 07-24-2024 End: 07-24-2024 ambulatory 07/24/2024 8:00 AM EST Treatment [facility] [address] [place] [address] Alma Berkowitz, PT [facility] Start: 07-23-2024 End: 07-23-2024 Patient encounter procedure 07/23/2024 9:15 AM EST Office Visit [facility] [address] [place] [address] Rebecca Dias, PA [address] [place] [address] [facility] Start: 07-21-2024 End: 07-21-2024 ambulatory 07/21/2024 8:00 AM EST Treatment [facility] [address] [facility] [address] [place] [address] Kaden Hickman, [employer] [facility] Start: 07-16-2024 End: 07-16-2024 ambulatory 07/16/2024 8:00 AM EST Treatment [facility] [address] [facility] [address] [place] [address] Kaden Hickman, [employer] [facility] Start: 07-14-2024 End: 07-14-2024 Patient encounter procedure 07/14/2024 2:00 PM EST Office Visit [facility] [address] [place] [address] Hanna Butcher MD [address] [facility] [address] [place] [address] [facility] Start: 07-01-2024 End: 07-01-2024 ambulatory 07/01/2024 9:00 AM EST Treatment [facility] [address] [facility] [address] [place] [address] Alma Berkowitz, PT [facility] Start: 06-26-2024 End: 06-26-2024 ambulatory 06/26/2024 9:00 AM EST Treatment [facility] [address] [facility] [address] [place] [address] Kaden Hickman, [employer] [facility] Start: 06-25-2024 End: 06-25-2024 Patient encounter procedure 06/25/2024 8:45 AM EST Office Visit [facility] [address] [place] [phone] Rebecca Dias, PA [address] [place] [address] [facility] Start: 06-24-2024 End: 06-24-2024 ambulatory 06/24/2024 9:00 AM EST Treatment [facility] [address] [place] [address] Alma Berkowitz, PT [facility] Start: 06-20-2024 End: 06-20-2024 ambulatory 06/20/2024 8:00 AM EST Treatment [facility] [address] [place] [address] Justina Carrillo, PT [address] [place] [address] [facility] Start: 06-16-2024 End: 06-16-2024 ambulatory 06/16/2024 10:00 AM EST Treatment [facility] [address] [place] [address] Alma Berkowitz, PT [facility] Start: 06-06-2024 End: 06-06-2024 Patient encounter procedure 06/06/2024 9:00 AM EST Office Visit [facility] [address] [place] [address] Rebecca Dias, PA [address] [place] [address] [facility] Start: 06-05-2024 End: 06-05-2024 ambulatory [facility] Start: 06-02-2024 End: 06-02-2024 ambulatory 06/02/2024 12:00 PM EST Treatment [facility] [address] [place] [address] Kaden Hickman, [employer] [facility] Start: 05-29-2024 End: 05-29-2024 Patient encounter procedure 05/29/2024 2:45 PM EST Office Visit [facility] [address] [place] [phone] Dexter Krishnamurthy DPM [address] [place] [address] [facility] Start: 05-29-2024 End: 05-29-2024 ambulatory [facility] Start: 05-28-2024 End: 05-28-2024 Patient encounter procedure [facility] Comment on above: Arrived Start: 05-26-2024 End: 05-26-2024 ambulatory 05/26/2024 10:00 AM EST Treatment [facility] [address] [facility] [address] [place] [address] Kaden Hickman, [employer] [facility] Start: 05-22-2024 End: 05-22-2024 ambulatory [facility] Start: 05-19-2024 End: 05-19-2024 ambulatory 05/19/2024 7:00 AM EST Treatment [facility] [address] [facility] [place] [address] Kaden Hickman, [employer] [facility] Start: 05-13-2024 End: 05-13-2024 ambulatory 05/13/2024 9:30 AM EST Evaluation [facility] [address] [facility] [address] [place] [address] Alma Berkowitz, PT [facility] Start: [...] olyneuropathy, with long-term current use of insulin ([facility]) Start: 04-08-2024 End: 04-08-2024 Patient encounter procedure [facility] Comment on above: Pre-op examination (Primary Dx) Start: 03-25-2024 End: 03-25-2024 Patient encounter procedure 03/25/2024 1:30 PM EDT Procedure Visit [facility] Jr. Johanne Hdez, [address] [facility] [address] [place] [address] [facility] Start: 03-18-2024 End: 03-13-2025 Basic metabolic 1998 panel - Serum or Plasma Basic metabolic panel Lab Routine Preop examination Expected: 03/18/2024 (Approximate), Expires: 03/13/2025 [facility] Work Phone: Comment on above: Expected: 03/18/2024 (Approximate), Expi res: 03/13/2025 Start: 03-18-2024 End: 03-18-2025 Basic metabolic 2000 panel - Serum or Plasma Basic Metabolic Panel Lab Routine Encounter for other preprocedural examination Expected: 03/18/2024, Expires: 03/18/2025 [facility] Work Phone: Comment on above: Expected: 03/18/2024, Expires: Start: 03-18-2024 End: 03-18-2025 CBC W Auto Differential panel - Blood [facility] Comment on above: Expected: 03/18/2024 (Approximate), Expi res: 03/13/2025 Expected: 03/18/2024 , Expires: 03/18/2025 Start: 03-18-2024 End: 03-13-2025 Prothrombin time (PT) in Blood by Coagulation assay Protime-INR Lab Routine Preop examination Expected: 03/18/2024 (Approximate), Expires: 03/13/2025 [facility] Comment on above: Expected: 03/18/2024 (Approximate), Expi res: 03/13/2025 Start: 03-18-2024 End: 03-18-2025 Protime & INR Protime & INR Lab Routine Encounter for other preprocedural examination Expected: 03/18/2024, Expires: 03/18/2025 [employer] Work Phone: Comment on above: Expected: 03/18/2024, Expires: Start: 03-18-2024 Subsequent hospital visit by physician 03/18/2024 9:07 AM EDT Hospital Encounter [facility] [address] [place] [address] Arrived [facility] Comment on above: Arrived Start: 03-18-2024 End: 03-18-2024 Patient encounter procedure [facility] Comment on above: Preop examination Start: 03-03-2024 End: 03-03-2024 Patient encounter procedure 03/03/2024 2:30 PM EDT Office Visit [facility] [address] [place] [address] Jr. Johanne Hdez, DO [address] [address] Arrived [facility] Comment on above: Arrived Start: 02-25-2024 End: 02-24-2025 CT Chest for screening WO contrast CT low dose lung screening (Annual) Imaging Routine Personal history of tobacco use, presenting hazards to health Expected: 02/25/2024, Expires: 02/24/2025 [employer] Work Phone: Comment on above: Expected: 02/25/2024, Expires: Start: 02-25-2024 End: 02-25-2024 Patient encounter procedure [facility] Start: 02-17-2024 COVID-19 Vaccine ( season) COVID-19 Vaccine ( season) [facility] Start: 02-17-2024 COVID-19 Vaccine ( season) COVID-19 Vaccine ( season) [facility] Start: 02-17-2024 Influenza vaccination [facility] Start: 12-13-2023 End: 12-13-2023 Clinical Support 12/13/2023 8:00 PM EDT [facility] [address] [address] [facility] Start: 11-19-2023 End: 11-19-2023 Clinical Support 11/19/2023 8:00 PM EDT Clinical Support [facility] [address] [place] [phone] [facility] Start: 10-29-2023 End: 10-29-2023 Patient encounter procedure 10/29/2023 1:15 PM EDT Office Visit [facility] [address] [place] [phone] Ashli Ross DO [address] [place] [address] [facility] 230 Start: 10-28-2023 Hemoglobin A1c measurement Diabetes: Hemoglobin A1C [facility] Start: 08-29-2023 End: 08-29-2023 Patient encounter procedure 08/29/2023 7:45 AM EDT [facility] [address] [place] [address] Dank Campo MD [address] [place] [address] [facility] Start: 08-23-2023 End: 08-23-2023 Patient encounter procedure [facility] Start: 08-15-2023 End: 08-15-2024 CT Chest for screening WO contrast CT low dose lung screenin (3mo 6mo follow-up) Imaging Routine Personal history of tobacco use, presenting hazards to health Expected: 08/15/2023, Expires: 08/15/2024 [facility] Work [facility]: Comment on above: Expected: 08/15/2023, Expires: Start: 08-15-2023 End: 08-15-2024 Echo complete W/O contrast Echo complete W/O contrast Echocardiography Routine Obstructive sleep apnea syndrome CSA (central sleep apnea) Expected: 08/15/2023, Expires: 08/15/2024 [facility] Comment on above: Expected: 08/15/2023, Expires: Start: 08-09-2023 End: 08-09-2023 Patient encounter procedure 08/09/2023 8:30 AM EST Office Visit [facility] [address] [place] [address] Dexter Krishnamurthy DPM [address] [place], [place] [phone] [facility] Start: 08-01-2023 End: 08-01-2023 Patient encounter procedure 08/01/2023 10:30 AM EST Office Visit [facility] [address] [place] [address] Jr. Johanne Hdez C, DO [address] [address] [facility] Start: 04-27-2023 [facility] Start: 04-11-2023 Administration of varicella zoster vaccine Zoster (Shingles) Vaccine (3 of 3) [facility] Start: 02-16-2023 COVID-19 Vaccine ( season) COVID-19 Vaccine ( season) [facility] Start: 02-16-2023 COVID-19 Vaccine ( season) COVID-19 Vaccine ( season) [facility] Start: 02-16-2023 Influenza vaccination Influenza Vaccine [facility] Start: 07-24-2022 [facility] Start: 04-15-2022 Adult BMI Screening Adult BMI Screening [facility] Start: 09-15-2020 Abdominal aortic aneurysm screening Abdominal Aortic Aneurysm (AAA) Screen [facility] Start: 09-15-2020 Fall Risk Screening Fall Risk Screening [facility] Start: 09-15-1974 Urine screening for protein Diabetes: Urine Protein Screening [facility] Start: 09-15-1973 Adult BMI Follow Up Plan Adult BMI Follow Up Plan [facility] Start: 1967 Depression Screening Depression Screening [facility] Start: 1967 Tobacco Screening Tobacco Screening [facility] Start: 09-15-1965 Glaucoma screening Diabetes: Retinopathy Screening [facility] Start: 1955 Medicare Annual Wellness (AWV) Medicare Annual Wellness (AWV) [facility] Start: 1955 Medicare Annual Wellness Visit Medicare Annual Wellness Visit [facility] Start: 1955 Screening for malignant neoplasm of colon [facility] Patient Education [facility] Work Phone: End: 08-15-2024 Polysomnography 4 or more parameters with PAP titration Polysomnography 4 or more parameters with PAP titration Sleep Center Routine Obstructive sleep apnea syndrome CSA (central sleep apnea) 1 Occurrences starting 08/15/2023 until 08/15/2024 [facility] XMS [facility] Comment on above: 1 Occurrences starting 08/15/2023 until 08/15/2024 End: 10-27-2025 Pulmonary function test Spirometry (Flow Volume Loop) pre/post short acting bronchodilator w/ DLCO (diffusion study) Pulmonary function test Spirometry (Flow Volume Loop) pre/post short acting bronchodilator w/ DLCO (diffusion study) PFT Routine SOB (shortness of breath) 1 Occurrences starting 10/27/2024 until 10/27/2025 [facility] Work Phone: Comment on above: 1 Occurrences starting 10/27/2024 until 10/27/2025 Supine abdominal X-ray [facility] XR Shoulder - left 2 Views XR shoulder 2+ views left Imaging Routine Acute pain of left shoulder 03/03/2024 2:47 PM EDT [facility] Work Phone: Immunizations Immunization Date Immunization Notes Care Provider Fa cility 02-28-2024 ABRYSVO - Respirator y syncytial virus (RSV), vaccine, bivalent, protein subunit RSV prefusion F, diluent reconstituted, 0.5 mL, PF Ashli Petznick DO Work Phone: [facility] 02-28-2024 influenza, high dose seasonal, preservative-free Ashli Petznick DO Work Phone: [facility] 02-28-2024 influenza virus vaccine, unspecified formulation Jr. Stepanic DO Work Phone: [facility] 04-22-2023 zoster vaccine recombinant Ashli Petznick DO Work Phone: [facility] 03-23-2023 RSV, recombinant, protein subunit RSVpreF, adjuvant reconstitu, 120mcg/0.5mL, PF (Arexvy) Ashli Petznick DO Work Phone: [facility] 02-14-2023 influenza virus vaccine, unspecified formulation Peterson PETERSEN [facility] 02-14-2023 Influenza, Seasonal, Quadrivalent, Adjuvanted Ashli Petznick DO Work Phone: [facility] 02-14-2023 zoster vaccine recombinant Ashli Petznick DO Work Phone: [facility] 02-14-2023 zoster vaccine, unspecified formulation [facility] 04-09-2022 COVID-19 mRNA Bivale nt Booster (Pfizer) MD Dank Campo Work Phone: [facility] 04-09-2022 influenza virus vaccine, unspecified formulation Peterson Dizmo [facility] 04-09-2022 Influenza, Seasonal, Quadrivalent, Adjuvanted Ashli Petznick DO Work Phone: [facility] 04-13-2021 COVID-19 mRNA, Comirnaty (Pfizer) MD Dank Campo Work Phone: [facility] 02-22-2021 influenza virus vaccine, unspecified formulation Peterson Dizmo [facility] 02-22-2021 Influenza, Seasonal, Quadrivalent, Adjuvanted Ashli Petznick DO Work Phone: [facility] 02-22-2021 pneumococcal polysaccharide vaccine, 23 valent Ashli Petznick DO Work Phone: [facility] 02-16-2021 pneumococcal conjuga te vaccine, 13 valent Peterson PETERSEN [facility] 01-20-2021 tetanus and diphther ia toxoids, adsorbed, preservative free, for adult use (5 Lf of tetanus toxoid and 2 Lf of diphtheria toxoid) [employer] Other 01-20-2021 tetanus and diphther ia toxoids, adsorbed, preservative free, for adult use (2 Lf of tetanus toxoid and 2 Lf of diphtheria toxoid) Peterson PETERSEN [facility] 01-17-2021 influenza virus vaccine, unspecified formulation Peterson PETERSEN [facility] 01-17-2021 influenza, seasonal, injectable Ashli Petznick DO Work Phone: [facility] 01-17-2021 Moderna SARS-CoV-2 Vaccination Ashli Cody DO Work Phone: [facility] 10-16-2020 SARS-CoV-2 (COVID-19 ) mRNA BNT-162b2 vax Peterson PETERSEN [facility] 10-01-2020 COVID-19 mRNAAlfred (Pfizer) MD Dank Campo Work Phone: [facility] 09-08-2020 COVID-19 Alfred Hightower (Pfizer) MD Dank Campo Work Phone: [facility] 02-17-2020 influenza virus vaccine, unspecified formulation Peterson Dizmo [facility] 02-17-2020 influenza, injectabl e, quadrivalent, preservative free Ashli Petznick DO Work Phone: [facility] 02-09-2020 influenza, high dose seasonal, preservative-free Ashli Petznick DO Work Phone: [facility] 03-15-2019 influenza virus vaccine, unspecified formulation Peterson Dizmo [facility] 03-15-2019 influenza, injectabl e, quadrivalent, preservative free Ashli Petznick DO Work Phone: [facility] 02-25-2018 influenza virus vaccine, unspecified formulation Peterson Dizmo [facility] 02-25-2018 influenza, injectabl e, quadrivalent, preservative free Ashli Petznick DO Work Phone: [facility] 05-30-2017 pneumococcal conjuga te vaccine, 13 valent Ashli Petznick DO Work Phone: [facility] 05-30-2017 pneumococcal polysaccharide vaccine, 23 valent Ashli Petznick DO Work Phone: [facility] 03-02-2017 influenza nasal, unspecified formulation Ashli Petznick DO Work Phone: [facility] 03-02-2017 influenza virus vaccine, unspecified formulation Peterson Dizmo [facility] 03-02-2017 influenza, injectabl e, quadrivalent, preservative free Ashli Petznick DO Work Phone: [facility] 03-05-2016 influenza virus vaccine, unspecified formulation Peterson PETERSEN [facility] 03-05-2016 influenza, injectabl e, quadrivalent, preservative free Ashli Petznick DO Work Phone: [facility] 03-05-2016 influenza, seasonal, injectable Ashli Petznick DO Work Phone: [facility] 02-18-2015 zoster vaccine, live Ashli Petznick DO Work Phone: [facility] 02-01-2015 influenza virus vaccine, unspecified formulation Peterson PETERSEN [facility] 02-01-2015 influenza, seasonal, injectable Ashli Petznick DO Work Phone: [facility] 08-18-2014 tetanus toxoid, redu inocencio diphtheria toxoid, and acellular pertussis vaccine, adsorbed Ashli Petznick DO Work Phone: [facility] 08-04-2013 pneumococcal conjuga te vaccine, 13 valent Ashli Petznick DO Work Phone: [facility] Payers Date Payer Category Payer Self-pay [id number] 2023 Unknown [id number] 2021 Medicare (Managed Care) [facility] [id number] 2021 Medicare HMO [employer] MEDICARE [id number] 2020 Medicare [id number]. 1.13.693. [id number] 2013 Unknown [id number]. 1.13.424. 2.7.3.764303.315 1959 Medicare [id number] 1955 Unknown [id number] 2.16.840.1.472677.3.579. 2.593 1955 Unknown [id number] 2.16.840.1.466577.3.579. 2.593 1955 Unknown [id number] 2.16.840.1.764456.3.579. 2.593 1955 Unknown [id number] 2.16.840.1.689151.3.579. 2.593 1955 Unknown [id number] 2.16.840.1.716767.3.579. 2.593 1955 Unknown [id number] 2.16.840.1.805130.3.579. 2.593 1955 Unknown [id number] 2.16.840.1.606945.3.579. 2.593 1955 Unknown [id number] 2.16.840.1.814078.3.579. 2.593 1955 Unknown [id number] 2.16.840.1.622815.3.579. 2.1286 1955 Unknown [id number] 2.16.840.1.905233.3.579. 2.727 1955 Unknown [id number] 2.16.840.1.516207.3.579. 2.727 1955 Unknown [id number] 2.16.840.1.216274.3.579. 2.727 1955 Unknown [id number] 2.16.840.1.519408.3.579. 2.727 1955 Unknown [id number] 2.16.840.1.827206.3.579. 2.727 1955 Unknown [id number] 2.16.840.1.402350.3.579. 2.727 1955 Unknown [id number] 2.16.840.1.186478.3.579. 2.196 1955 Unknown [id number] 2.16.840.1.602736.3.579. 2.196 1955 Unknown [id number] 2.16.840.1.989374.3.579. 2.196 1955 Unknown [id number] 2.16.840.1.109610.3.579. 2.196 1955 Unknown [id number] 2.16.840.1.431201.3.579. 2.196 1955 Unknown [id number] 2.16.840.1.725128.3.579. 2.196 1955 Unknown [id number] 2.16.840.1.420620.3.579. 2.196 1955 Unknown [id number] 2.16.840.1.947854.3.579. 2.196 1955 Unknown [id number] 2.16.840.1.583685.3.579. 2.1286 1955 Unknown [id number] 2.16.840.1.757255.3.579. 2.1286 1955 Unknown [id number] 2.16.840.1.805916.3.579. 2.1286 1955 Unknown [id number] 2.16.840.1.805402.3.579. 2.128 1955 Unknown [id number] 2.16.840.1.656879.3.579. 2.1285 1955 Unknown [id number] 2.16.840.1.005390.3.579. 2.128 1955 Unknown [id number] 2.16.840.1.795474.3.579. 2.128 1955 Unknown [id number] 2.16.840.1.078665.3.579. 2.1258 1955 Unknown [id number] 2.16840.1.687563.3.579. 2.1258 1955 Unknown [id number] 2.840.1.007207.3.579. 2.1258 1955 Unknown [id number] 2.840.1.661786.3.579. 2.1258 1955 Unknown [id number] 2.16840.1.734704.3.579. 2.1258 1955 Unknown [id number] 2.840.1.355250.3.579. 2.1258 1955 Unknown [id number] 2.840.1.400046.3.579. 2.1258 1955 Unknown [id number] 2.16840.1.539091.3.579. 2.1258 1955 Unknown [id number] 2.16840.1.292286.3.579. 2.1258 1955 Unknown [id number] 2.16.840.1.463305.3.579. 2.1258 1955 Unknown [id number] 2.16840.1.680497.3.579. 2.1258 1955 Unknown [id number] 2.16.840.1.636627.3.579. 2.1258 1955 Unknown [id number] 2.16.840.1.953361.3.579. 2.1258 1955 Unknown [id number] 2.16.840.1.331474.3.579. 2.1258 1955 Unknown [id number] 2.16.840.1.477499.3.579. 2.1258 1955 Unknown [id number] 2.16.840.1.162057.3.579. 2.1258 1955 Unknown [id number] 2.16840.1.280648.3.579. 2.1258 1955 Unknown [id number] 2.16.840.1.284624.3.579. 2.1258 1955 Unknown [id number] 2.16840.1.122449.3.579. 2.1258 1955 Unknown [id number] 2.16840.1.719007.3.579. 2.1258 1955 Unknown [id number] 2.16.840.1.406852.3.579. 2.1258 1955 Unknown [id number] 2.16840.1.838670.3.579. 2.1258 1955 Unknown [id number] 2.16.840.1.612876.3.579. 2.1258 1955 Unknown [id number] 2.16.840.1.010811.3.579. 2.1258 1955 Unknown [id number] 2.16.840.1.187756.3.579. 2.1258 1955 Unknown [id number] 2.16.840.1.584575.3.579. 2.1258 1955 Unknown [id number] 2.16.840.1.372872.3.579. 2.1259 1955 Unknown [id number] 2.16.840.1.992664.3.579. 2.1259 Medicare Medicare [id number] Unknown [place] [employer]/BS [id number] Unknown Regular Insurance [id number] Unknown [id number] 2.16.840.1.068749.3.579. 2.531 Unknown [id number] 2.16.840.1.345453.3.579. 2.531 Unknown [id number] 2.16.840.1.471976.3.579. 2.531 Unknown [id number] 2.16.840.1.696525.3.579. 2.531 Unknown [id number] 2.16.840.1.708556.3.579. 2.531 Worker's Compensation [employer] [id number] Worker's Compensation [id number] Social History Date Type Detail Facility Start: 02-03-2022 End: 08-15-2023 Ex-smoker (finding) [facility] Start: 06-29-2020 End: 01-09-2023 Male [facility] Start: 1955 Sex Assigned At Male F [facility] Start: 06-18-1974 End: 2021 History of tobacco use Current smoker [facility] Start: 06-18-1974 End: 2021 History of tobacco use Cigarette Smoker [facility] Start: 06-29-2020 End: 12-11-2022 Cigarettes smoked current [...] clubs or organizations such as zoroastrianism groups, [employer], [employer] or athletic groups, or school groups? Yes [...] Not on file [facility] Start: 01-21-2015 End: 07-30-2024 Sex Male (finding) [facility] Start: 08-16-2023 End: 10-27-2024 Alcoholic beverage intake Current non-drinker of alcohol (finding) [facility] Start: 12-22-2020 Tobacco smoking stat [facility] Smokes tobacco daily [facility] Medical Equipment Procedure Code Equipment Code Equipment Origin al Text Equipment Identifier Dates EGD (esophagogastroduod enoscopy) Video capsule endoscopy system [id number] FDA Start: 08-18-2020 [id number] Start: 09-19-2022 use to test BLOO D SUGAR THREE TIMES DAILY [id number] Start: 09-19-2022 use to test BLOO D SUGAR THREE TIMES DAILY [id number] Start: 11-01-2022 USE DIRECTED FOUR TIMES DAILY [id number] Start: 02-21-2024 Fsbs bid [id number] Start: 12-17-2023 USE DIRECTED FOUR TIMES DAILY [id number] Start: 11-21-2023 USE DIRECTED FOUR TIMES DAILY [id number] Start: 06-05-2024 [employer] 4.75 - Sna - [id number] Start: 12-10-2017 Incv/Swivelock 4.75 Use [id number] - Sna - [id number] Start: 07-19-2020 Fsbs bid [id number] Start: 12-24-2024 USE DIRECTED FOUR TIMES DAILY [id number] Start: 01-05-2025 Goals Date Patient Goal Desired Activity /State Personal health goal Comment on above: Formatting of this n ote might be different from the original. Evaluation of progress towards goal: Home self care with childrens support Functional Status Date Assessment Result Facility 02-04-2024 Functional Status N/A [facility] 02-12-2023 Functional Status N/A [facility] 02-03-2022 N/A [facility] Clinical Notes 11-04-2020 to 02-02-2025 Telephone Encounter - Aliza Escalera - 02/02/2025 1:24 PM EDTTelephone Encounter - Aliza Escalera - 02/02/2025 1:24 PM Chad Matthew MD - 01/28/2025 11:10 AM EDTPatient Instructions Note Date & Type Note Facility 02-02-2025 Miscellaneous Notes Images from the original note were not [...] seal with face. [facility]-02-2025 Telephone encounter Note Images from the original note were not included. Pt into [facility] today, without an appointment. Wanted to try [...] PAP and form better seal with face. [facility] 01-28-2025 History of Presen t illness Narrative Milad Seymour is a 69 y.o. male Dank Campo MD presents with chief complaint of Diabetes (NEW REF ONLY) HPI: 01/2025 History of Present Illness The patient is a new patient sent from Dr. Kamran Cmapo for uncontrolled diabetes. A1c in our office 9.7 and currently he is on Lantus 70 units and Humalog 18 units breakfast,18 units lunch, 35 units supper, and off his oral medication for DM2. [...] 300 mg, 2 times daily glucose blood (GeckoGo Ultra) test strip Fsbs bid insulin lispro (HUMALOG KWIKPEN) 30 Units, Subcutaneous, 3 times daily with meals insulin pen needle ([employer] UniSyn[employer] Pentips) 31G x 5 mm misc USE DIRECTED FOUR TIMES DAILY Lancets (GeckoGo Delica Plus [id number]) misc lansoprazole (Prevacid) [address] capsule [...] Hyperlipidemia Hypertension Iron Infusions on going per [facility] , Low back pain Migraine Otitis externa Prostate cancer (HCC) 2018 radiation PVC (premature ventricular contraction) Right shoulder pain Rotator cuff tear, right 2020 Sleep apnea Past Surgical History: Procedure Laterality Date APPENDECTOMY 1971 CHOLECYSTECTOMY COLONOSCOPY COLONOSCOPY 2016 EGD GALLBLADDER SURGERY 03/2021 HEEL SPUR SURGERY Right 2012 Adam KNEE SURGERY x2 arthroscopy OTHER SURGICAL HISTORY 07/31/2017 RM and T-tube, Timmis OTHER SURGICAL HISTORY Right 07/2020 Right PCR ROTATOR CUFF REPAIR Bilateral [id number] Wendy Crowell ROTATOR CUFF REPAIR 04/2024 SHOULDER [...] recent change. No heart burn, liver or gallbladder disease; no rectal bleeding or pain : No urinary pain , frequency or odor. MUSCULOSKELETAL: No muscle pain or cramps; no extremity weakness.No joint pain, stiffness, swelling or limitation of movement NEUROLOGY: No H/O seizures, [...] Wt 258 lb SpO2 96% BMI 38.66 kg/m Smoking Status Former BSA 2.38 m ASSESSMENT AND PLAN: Assessment/Plan Diagnoses and all orders for this visit: Type 2 diabetes mellitus with hyperglycemia, with long-term current use of insulin ([facility]) - POCT glucose manually resulted - POCT glycosylated hemoglobin (Hb A1C) docked device - Ambulatory referral to Endocrinology - insulin glargine (Lantus SoloStar) 100 UNIT/ML pen; Inject 40 Units under the skin in the morning and 40 Units before bedtime. - insulin lispro [...] panel; Future Primary hypertension Insulin long-term use ([facility]) Hyperlipemia, mixed Encounter for dietary consultation Class 2 severe obesity due to excess calories with serious comorbidity and body mass index (BMI) of 38.0 to 38.9 in adult ([facility] Diet and exercise reviewed with the patient Stage 3b chronic kidney disease ([facility]) Type 2 diabetes mellitus with diabetic polyneuropathy, with long-term current use of insulin ([facility]) Assessment & Plan 1. Uncontrolled diabetes: - A1c level is 9.7. Currently on Lantus 70 units and Humalog 18 units breakfast, 18 units lunch, 35 units supper, and Ozempic 1 mg once weekly. - Lantus dosage adjusted to 40 units twice daily. Humalog changed to 20 units for small meals, 25 units for medium meals, and 30 units for large meals plus scale #2 instructions. Ozempic increased to 2 mg once weekly. Jardiance sample given for 10 mg for 4 weeks, prescription sent for 25 mg once daily. 2. Hypertension: - Continue with lisinopril and metoprolol. 3. Hypogonadism: - Plan to see urologist and might start testosterone treatment soon. Follow up in about 3 months (around 04/30/2025). documented in this encounter [facility] 12-02-2024 History of Presen t illness Narrative Images from the original note were not included. [id number] [facility] [id number] Patient: Milad Seymour Date of : 1955 [...] Hanna Butcher MD [facility] Past Medical, Family, and Social History Update: The following portions of the patient's history were reviewed and updated as appropriate: allergies, current medications, past family history, past medical history, past social history, past surgical history and problem list. Past Medical History: Diagnosis Date Anemia Unknown Arthritis Benign prostatic hyperplasia Cancer ([facility]) PROSTATE COPD (chronic obstructive pulmonary disease) ([facility]) Unknown Diabetes mellitus type 2, controlled ([facility]) GERD (gastroesophageal reflux disease) History of placement of ear tubes right ear Hyperlipidemia Hypertension Jaundice 03/30/21 FRANK (obstructive sleep apnea) cpap Visual impairment glasses Past Surgical History: Procedure Laterality Date APPENDECTOMY CHOLECYSTECTOMY 04/06/21 COLONOSCOPY 2019 FOOT SURGERY heel spur right KNEE SURGERY bilateral scope LAPAROSCOPIC EPIGASTRIC HERNIA REPAIR REPAIR ROTATOR CUFF SHOULDER Right 07/19/2020 Performed by Karsten Crowell DO at [facility] REPAIR ROTATOR CUFF SHOULDER Right 12/10/2017 Performed by Karsten Crowell DO at [facility] SHOULDER SURGERY bilateral TONSILLECTOMY 06/1970 TYMPANOSTOMY [...] Alcohol Use No [facility] History of Presen t illness Narrative Images from the original note were not included. [address] [place] [address] Patient: Milad Seymour Date of : 1955 [...] Hanna Butcher MD Pulmonary [facility] Past Medical, Family, and Social History Update: The following portions of the patient's history were reviewed and updated as appropriate: allergies, current medications, past family history, past medical history, past social history, past surgical history and problem list. Past Medical History: Diagnosis Date Anemia Unknown Arthritis Benign prostatic hyperplasia Cancer ([facility]) PROSTATE COPD (chronic obstructive pulmonary disease) ([facility]) Unknown Diabetes mellitus type 2, controlled ([facility]) GERD (gastroesophageal reflux disease) History of placement of ear tubes right ear Hyperlipidemia Hypertension Jaundice 03/30/21 FRANK (obstructive sleep apnea) cpap Visual impairment glasses Past Surgical History: Procedure Laterality Date APPENDECTOMY CHOLECYSTECTOMY 04/06/21 COLONOSCOPY 2019 FOOT SURGERY heel spur right KNEE SURGERY bilateral scope LAPAROSCOPIC EPIGASTRIC HERNIA REPAIR REPAIR ROTATOR CUFF SHOULDER Right 07/19/2020 Performed by Karsten Crowell DO at [facility] REPAIR ROTATOR CUFF SHOULDER Right 12/10/2017 Performed by Karsten Crowell DO at [facility] SHOULDER SURGERY bilateral TONSILLECTOMY 06/1970 TYMPANOSTOMY [...] Alcohol Use No documented in this encounter [facility] 10-27-2024 Instructions Hanna Butcher MD - 10/27/2024 10:15 AM EDT 1. Need leak improvement to help with AHI 2. Update PFTs 3. Noted attempted CT but unable 4. Follow up in 1 month documented in this encounter [facility] 10-21-2024 Miscellaneous Notes Patient came in office to reschedule his appointment with YASMIN, patient was last seen on 02/25/2024, patient no showed to his last appointment on 07/14/2024. Patient has only been seen for FRANK. Patient would like to discuss pulmonary concerns with KW. Patient is scheduled for next available of 03/09/2025 in [place] (in 30 minute slot). Patient has not [...] breath on exertion, denies wheezing and cough. Digital Solutions Architect called patient and informed him that KW ordered a CXR to have him complete at his earliest convenience. Patient verbalized understanding. documented in this encounter [facility] 10-21-2024 Telephone encounter Note Patient came in office to reschedule his appointment with KW, patient was last seen on 02/25/2024, patient no showed to his last appointment on 07/14/2024. Patient has only been seen for FRANK. Patient would like to discuss pulmonary concerns with KW. Patient is scheduled for next available of 03/09/2025 in [place] (in 30 minute slot). Patient has not completed his LDSCT due to having anxiety/panic attack of being in confined area. Patient has not had any recent chest imaging or PFTs. Please review and advise. [facility] 10-21-2024 Telephone encounter Note Noted. Please have him on the cancellation list. If SOB is worse, ok to get repeat chest xray [facility] Work Phone: 10-21-2024 Telephone encounter Note Patient stated that he has been experiencing more shortness of breath on exertion, denies wheezing and cough. [facility] 10-21-2024 Telephone encounter Note Digital Solutions Architect called patient and informed him that KW ordered a CXR to have him complete at his earliest convenience. Patient verbalized understanding. [facility] 09-24-2024 History of Presen t illness [...] radiculopathy. Has recently received injection therapy at [facility]; and is potentially scheduled [...] *, Disp: 9 each, Rfl: 3 Drug [place] Unifine Pentips 31G X 5 MM misc, [...] mL, Rfl: 3 Lancets (OneTouch Delica Plus [id number]) [facility] use to test BLOOD SUGAR THREE TIMES [...] 07/2020 Right PCR ROTATOR CUFF REPAIR Bilateral [id number] Wendy Crowell ROTATOR CUFF REPAIR 04/2024 SHOULDER [...] Alert and oriented. Pleasant disposition. Presents wearing Dr. Lam therapeutic footwear with accommodative orthoses. FOOT EXAM: [...] Dexter Krishnamurthy DPM documented in this encounter [facility] 09-24-2024 Instructions Dexter Krishnamurthy DPM - 09/24/2024 2:45 PM EDT As noted documented in this encounter [facility] 07-31-2024 History of Presen t illness Narrative Associated Problem(s): Type 2 diabetes mellitus with diabetic polyneuropathy, with long-term current use of insulin ([facility]) During the appointment today all pertinent labs, [...] hypotension Osteoarthritis of knee Benign essential hypertension ([facility]/HCC) Primary osteoarthritis, right shoulder Prostate cancer (CMS/HCC) Proteinuria Hypercholesteremia ([facility]) Renal failure 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, with long-term current use of insulin ([facility]/HCC) Long-term insulin use ([facility]) Lumbar spondylosis Bilateral leg edema Encounter for long-term (current) use of medications Class 2 severe obesity due to excess calories with serious comorbidity and body mass index (BMI) of 37.0 to 37.9 in adult ([facility]) FRANK (obstructive sleep apnea) Chronic fatigue Right hand pain Hypersomnia Fasciculations Memory impairment Bilateral carpal tunnel syndrome Foot drop, right Lumbar radiculopathy Cervical radiculopathy Family history of Parkinson's disease JARAD (generalized anxiety disorder) ([facility]) Type 2 diabetes mellitus with stage 3b chronic kidney disease, with long-term current use of insulin (HCC) ([facility]) Type 2 diabetes mellitus with hyperglycemia, with long-term current use of insulin ([facility]) Social History Tobacco Use Smoking status: Former [...] SOPN) Semaglutide 1 mg Weekly SC Labs [facility] HEMOGLOBIN A1C/HEMOGLOBIN.TOTAL:MFR:PT:BLD :QN: 9.4 Outpatient prescription Medication marked as long-term The ASCVD Risk score (Drake DK, et al., 2019) failed to calculate [...] polyneuropathy, with long-term current use of insulin ([facility]) During the appointment today all pertinent labs, [...] (BMI) of 37.0 to 37.9 in adult ([facility]) - Primary Type 2 diabetes mellitus with stage 3b chronic kidney disease, with long-term current use of insulin (HCC) ([facility]) Type 2 diabetes mellitus with hyperglycemia, with long-term current use of insulin ([facility]) Follow up in about 3 months (around [...] and 300 mg before bedtime. GLUCOSE BLOOD (AC Immune SAUCH ULTRA) TEST STRIP Fsbs bid LANCETS (SCI SolutionTOUCH DELICA PLUS [id number]) MISC use to test BLOOD SUGAR THREE [...] the patient today. documented in this encounter [facility] 07-30-2024 Evaluation note Diagnosis Onset Date Resolution GERD (gastroesophageal reflux disease) acute July 30, 025 2:05pm IBS (irritable bowel syndrome) acute July 30 025 2:05pm [facility] Work Phone: [phone]) 952-539402-05-2025 History of Present illness Narrative* TK Cantu [...] for requiring urgent evaluation. [facility] [id number] History of Present illness Narrative* Alma Woo, PT - 07/01/2024 9:00 AM EST Images [...] pillow removed. No complaints of pain. Precautions: [place] Subjective: Pt states he was consistently icing [...] to be instructed in home exercise program. 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 Date: [facility] in [facility] encounter[facility] [id number] History of Present illness Narrative* TK Cantu [...] for requiring urgent evaluation. documented in this encounter[facility] [id number] History of Present illness Narrative* Alma Woo, PT - 06/24/2024 9:00 AM EST Images [...] pillow removed. No complaints of pain. Precautions: [place] Subjective: Pt states he has noticed a [...] to be instructed in home exercise program. 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 Date: documented in this encounter[facility] [id number] History of Present illness Narrative* Justina Carrillo, [...] pillow removed. No complaints of pain. Precautions: [place] Subjective: No significant pain coming in today. [...] to be instructed in home exercise program. 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 Date: documented in this encounter[facility] ChildrenGocrhaizvt13-73-1315 History of Present illness Narrative* Alma Berkowitz, [...] pillow removed. No complaints of pain. Precautions: [place] Subjective: Pt states he was a little [...] Please sign below. Date: documented in this encounter[facility] [id number] History of Present illness Narrative* Alma Berkowitz, [...] pillow removed. No complaints of pain. Precautions: [place] Subjective: Pt states pain is minimal in [...] Please sign below. Date: documented in this [facility]12-21-2024 Telephone encounter Note* Telephone Encounter - TK Cantu - 06/07/2024 8:34 AM EST Spoke with pt. May DC sling.. Start AROM/ PROM,. No strengthening or resistance... keep therapy going pending follow up.. pt feels he is doing well and making progress [facility] [id number] Miscellaneous Notes* Telephone Encounter - TK Cantu - 06/07/2024 8:34 AM EST Spoke with pt. May DC sling.. Start AROM/ PROM,. No strengthening or resistance... keep therapy going pending follow up.. pt feels he is doing well and making progress documented in this [facility]12-17-2024 Telephone encounter Note* Telephone Encounter - Dank Campo MD - 06/03/2024 9:58 AM EST Patient left message about prozac dose. Dose increased to 40 mg last week and script was sent to [facility]. It will take 2-3 weeks to notice an improvement in mood and continue at 40 mg. [facility] [id number] Miscellaneous Notes* Telephone Encounter - Dank Campo MD - 06/03/2024 9:58 AM EST Patient left message about prozac dose. Dose increased to 40 mg last week and script was sent to [facility]. It will take 2-3 weeks to notice an improvement in mood and continue at 40 mg. documented in this encounterSh[facility]ers [facility] for [id number] History of Present illness Narrative* Dexter Krishnamurthy [...] elevatedper patient. BS [address] aCmpo 05/28/2024. Patient relates since starting Gabapentin in [...] days, Disp: 9 each, Rfl: 3 Drug [place] Birdiee Pentips 31G X 5 MM misc, USE [...] by mouth, Disp: , Rfl: glucose blood (Certaliauch Ultra) test strip, Fsbs bid, Disp: 200 each, Rfl: 3 insulin glargine (Lantus SoloStar) 100 UNIT/ML pen, Inject 65 Units under the skin at bedtime, Disp: 60 mL, Rfl: 3 insulin lispro (HumaLOG) 100 UNIT/ML injection, INJECT 12 UNITS BREAKFAST, 25 UNITS LUNCH/ DINNER PLUS CORRECTIONS OF 1:30 > 150MG/DL ( MAX 100 UNITS A DAY), Disp: 90 mL, Rfl: 3 Lancets ([employer] ServicesTouch Delica Plus [id number]) misc, use to test BLOOD SUGAR THREE [...] SURGERY 03/2021 HEEL SPUR SURGERY Right 2011 [place] KNEE SURGERY x2 arthroscopy OTHER SURGICAL HISTORY 07/31/2017 RM and T-tube, Timmis OTHER SURGICAL HISTORY Right 07/2020 Right PCR ROTATOR CUFF REPAIR Bilateral [id number] Wendy Crowell ROTATOR CUFF REPAIR 04/2024 SHOULDER [...] understanding. Dexter Krishnamurthy DPM documented in this [facility]12-12-2024 Instructions* Patient Instructions* Dexter Krishnamurthy DPM - 05/29/2024 2:45 PM EST As noted documented in this [facility]12-12-2024 History of Present illness Narrative* Valentine Simon, [...] pillow removed. No complaints of pain. Precautions: [place] Subjective: Pt reports he has probably using [...] to be instructed in home exercise program. 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 Date: documented in this encounterSh[facility]ers [facility] for [id number] History of Present illness Narrative* Dank Campo MD - 05/28/2024 8:21 AM ESTAssociated Problem(s): Type 2 diabetes mellitus with stage 3b chronic kidney disease, with long-term current use of insulin (HCC) ([facility]) Renal function stable. Continue lisinopril and ozempic. * Dank Campo MD - 05/28/2024 8:19 AM ESTAssociated Problem(s): Type 2 diabetes mellitus with diabetic polyneuropathy, with long-term current use of insulin ([facility]) BS improving and follow up with endo. * Dank Campo MD - 05/28/2024 8:19 AM ESTAssociated Problem(s): Lumbar spondylosis Pain starting to worsen and follow with pain management. Continue celebrex. * Dank Campo MD - 05/28/2024 8:18 AM ESTAssociated Problem(s): JARAD (generalized anxiety disorder) ([facility]) Worsening symptoms and increase prozac. Warned will [...] polyneuropathy, with long-term current use of insulin ([facility]) BS improving and follow up with endo. Lumbar spondylosis Pain starting to worsen and follow with pain management. Continue celebrex. Relevant Medications tiZANidine (Zanaflex) 4 MG tablet JARAD (generalized anxiety disorder) ([facility]) Worsening symptoms and increase prozac. Warned will take 2-3 weeks to notice improvement in mood. Use valium PRN. Relevant Medications FLUoxetine (PROzac) 40 MG capsule documented in this [facility]11-25-2024 Telephone encounter Note* Telephone Encounter - Slime Sanches - 05/12/2024 1:40 PM EST $35.00 copay / prior-auth needed. [facility] [id number] Miscellaneous Notes* Telephone Encounter - Slime Sanches - 05/12/2024 1:40 PM EST $35.00 copay / prior-auth needed. documented in this [facility]11-22-2024 History of Present illness Narrative* TK Cantu [...] for requiring urgent evaluation. documented in this [facility]11-22-2024 Instructions* Patient Instructions* TK Cantu - [...] schedule as soon aspossible documented in this [facility]11-12-2024 History of Present illness Narrative* Ashli Ross DO - 04/29/2024 11:31 AM ESTAssociated Problem(s): Type 2 diabetes mellitus with diabetic polyneuropathy, with long- term current use of insulin ([facility]) During the appointment today all pertinent labs, [...] polyneuropathy, with long-term current use of insulin ([facility]) Long-term insulin use ([facility]) Class 2 severe obesity due to excess calories with serious comorbidity and body mass index (BMI) of35.0 to 35.9 in adult ([facility]) Lumbar spondylosis Bilateral leg edema Encounter for long-term (current) use of medications Obesity (BMI 30-39.9) FRANK (obstructive sleep apnea) Chronic fatigue Right hand pain Hypersomnia Fasciculations Memory impairment Bilateral carpal tunnel syndrome Foot drop, right Lumbar radiculopathy Cervical radiculopathy Family history of Parkinson's disease JARAD (generalized anxiety disorder) ([facility]) Type 2 diabetes mellitus with stage 3a chronic kidney disease, with long-term current use of insulin ([facility]) ([facility]) Social History Tobacco Use Smoking status: Former [...] TO IDMS STANDARD 1.60 METHOD TRACEABLE TO IDND STANDARD Outpatient prescription Medication marked as long-term [...] polyneuropathy, with long-term current use of insulin ([facility]) During the appointment today all pertinent labs, [...] A1C) docked device (Completed) Long-term insulin use ([facility]) Class 2 severe obesity due to excess calories with serious comorbidity and body mass index (BMI) of35.0 to 35.9 in adult ([facility]) - Primary Type 2 diabetes mellitus with stage 3a chronic kidney disease, with long-term current use of insulin ([facility]) ([facility]) Follow up in about 3 months (around [...] MG CAPSULE Take by mouth GLUCOSE BLOOD (ONETOUCH ULTRA) TEST STRIP Fsbs bid LANCETS (ONETOUCH DELICA PLUS [id number]) MISC use to test BLOOD SUGAR THREE [...] with the patient today. documented in this [facility]11-07-2024 Telephone encounter Note* Telephone Encounter - Fredy Boswell NP - 04/24/2024 2:50 PM EST Post op pain rx. PDMP reviewed [facility] [id number] Miscellaneous Notes* Telephone Encounter - Fredy Boswell NP - 04/24/2024 2:50 PM EST Post op pain rx. PDMP reviewed documented in this [facility]11-06-2024 Telephone encounter Note* Telephone Encounter - Dank Campo MD - 04/23/2024 12:24 PM EST BP very low and patient having symptoms. Decrease lisinopril to once a day and continue to monitor. [facility] [id number] Miscellaneous Notes* Telephone Encounter - Dank Campo MD - 04/23/2024 12:24 PM EST BP very low and patient having symptoms. Decrease lisinopril to once a day and continue to monitor. documented in this [facility]10-22-2024 History of Present illness Narrative* TK [...] Hypertension (CMS/HCC) Iron Infusions on going per [facility] , Low back pain Migraine (CMS/HCC) Otitis externa Prostate cancer (CMS/HCC) 2018 radiation PVC (premature ventricular contraction) Right shoulder pain Rotator cuff tear, right 2020 Sleep apnea PAST SURGICAL HISTORY: Past Surgical History: Procedure Laterality Date APPENDECTOMY 1970 CHOLECYSTECTOMY COLONOSCOPY COLONOSCOPY 2015 EGD GALLBLADDER SURGERY 03/2021 HEEL SPUR SURGERY Right 2011 [place] KNEE SURGERY x2 arthroscopy OTHER SURGICAL HISTORY 07/31/2017 RM and T-tube, Timmis OTHER SURGICAL HISTORY Right 07/2020 Right PCR ROTATOR CUFF REPAIR Bilateral [id number] Wendy Crowell ROTATOR CUFF REPAIR SHOULDER ARTHROSCOPY [...] 10 mg, Oral, 3 times daily Drug [place] Unifine Pentips 31G X 5 MM misc USE DIRECTED FOUR TIMES DAILY fluorometholone (FML) 0.1 % ophthalmic suspension instill 1 (ONE) DROP IN BOTH EYES FOUR TIMES DAILY FOR 7 DAYS then instill 1 (ONE) DROP IN BOTH EYES TWICE DAILY FOR 7 DAYS FLUoxetine (PROZAC) 20 mg, Oral, Daily gabapentin (Neurontin) 100 MG capsule Oral glucose blood (Certaliauch Ultra) test strip Fsbs bid insulin lispro (HumaLOG) 100 UNIT/ML injection INJECT 5-10 UNITS BREAKFAST, 30 UNITS LUNCH/ DINNER PLUS CORRECTIONS OF 1:30 > 150MG/DL ( MAX 100 UNITS A DAY) Lancets (Conterra Broadband ServicesTouch Delica Plus [id number]) [facility] use to test BLOOD SUGAR THREE TIMES [...] SX INSTRUCTIONS GIVEN TODAY 04/08 @8:15AM - [place] DR. CAMPO CLEARANCE ; OBTAINED ULTRASLING GIVEN AT PRIOR APPT ARTHREX NOTIFIED PA APPROVED ([id number]) Follow up for 05/09 @9am w/tish in [place]. documented in this encounterShriners Hospitals for [id number] Telephone encounter Note* Telephone Encounter - Jr. Johanne Hdez DO - 03/25/2024 8:05 AM EDT Case cancelled as he took aspirin and celebrex [facility] [employer] Work Phone: [phone]) 128-846810-08-2024 Miscellaneous Notes* Telephone Encounter - Jr. Johanne Hdez DO - 03/25/2024 8:05 AM EDT Case cancelled as he took aspirin and celebrex * Telephone Encounter - Fredy Boswell NP - 03/24/2024 6:38 PM EDT Post op pain rx. PDMP reviewed documented in this encounterShriners Hospitals for [id number] Telephone encounter Note* Telephone Encounter - Fredy Boswell NP - 03/24/2024 6:38 PM EDT Post op pain rx. PDMP reviewed [facility] [id number] Telephone encounter Note* Telephone Encounter - TK Cantu - 03/18/2024 2:20 PM EDT Reviewed Pre-op labs.. Abdnormal renal function and potassium level. Labs in chart... Dr. Campo..are you willing to address? [facility] Work Phone: 1(951) 457-943710-01-2024 Miscellaneous Notes* Telephone Encounter - TK Cantu - 03/18/2024 2:20 PM EDT Reviewed Pre-op labs.. Abdnormal renal function and potassium level. Labs in chart... Dr. Campo..are you willing to address? documented in this encounterShriners Hospitals for [id number] History of Present illness Narrative* TK Cantu [...] Hypertension (CMS/HCC) Iron Infusions on going per [facility] , Low back pain Migraine (CMS/HCC) Otitis externa Prostate cancer (CMS/HCC) 2018 radiation PVC (premature ventricular contraction) Right shoulder pain Rotator cuff tear, right 2020 Sleep apnea PAST SURGICAL HISTORY: Past Surgical History: Procedure Laterality Date APPENDECTOMY 1971 CHOLECYSTECTOMY COLONOSCOPY COLONOSCOPY 2016 EGD GALLBLADDER SURGERY 03/2021 HEEL SPUR SURGERY Right 2011 [place] KNEE SURGERY x2 arthroscopy OTHER SURGICAL HISTORY 07/31/2017 RM and T-tube, Timmis OTHER SURGICAL HISTORY Right 07/2020 Right PCR ROTATOR CUFF REPAIR Bilateral [id number] Wendy Crowell ROTATOR CUFF REPAIR SHOULDER ARTHROSCOPY [...] Continuous Blood Gluc Sensor (Dexcom G7 Sensor) [facility] Device, Subcutaneous, See admin instructions, Change every 10 days cyclobenzaprine (FLEXERIL) 10 mg, Oral, 3 times daily diazePAM (VALIUM) 5 mg, Oral, 3 times daily PRN Drug [place] Unifine Pentips 31G X 5 MM [facility] USE DIRECTED FOUR TIMES DAILY fluorometholone (FML) 0.1 % ophthalmic suspension instill 1 (ONE) DROP IN BOTH EYES FOUR TIMES DAILY FOR 7 DAYS then instill 1 (ONE) DROP IN BOTH EYES TWICE DAILY FOR 7 DAYS FLUoxetine (PROZAC) 20 mg, Oral, Daily glucose blood (Certaliauch Ultra) test strip Fsbs bid insulin lispro (HumaLOG) 100 UNIT/ML injection INJECT 5-10 UNITS BREAKFAST, 30 UNITS LUNCH/ DINNER PLUS CORRECTIONS OF 1:30 > 150MG/DL ( MAX 100 UNITS A DAY) Lancets (Conterra Broadband ServicesTouch Delica Plus [id number]) [facility] use to test BLOOD SUGAR THREE TIMES [...] SX INSTRUCTIONS GIVEN TODAY 03/18 @8:30AM - [place] ULTRASLING GIVEN TODAY ARTHREX NOTIFIED PA APPROVED ([id number]) Patient presents today for fitting of left [...] Follow up for 04/08 @9am w/tish in [place]. documented in this encounterShriners Hospitals for ChildrenOjbayxgaiq29-04-8189 Telephone encounter Note* Telephone Encounter - Ashli [...] visit andhe was waiting on patient assistance. [facility] [id number] Miscellaneous Notes* Telephone Encounter - Ashli Ross DO - [...] waiting on patient assistance. documented in this encounterShriners Hospitals for ChildrenPdjikqlyrl87-39-2396 History of Present illness Narrative* Jr. Johanne [...] 03/03/24 XRAY CHANGE 04/30/23 CT ARTHROGRAM 07/24/23 [facility] TRIED MRI; UNABLE TO DUE TO CLAUSTROPHOBIA [...] mg, Oral, 3 times daily PRN Drug [place] Unifine Pentips 31G X 5 MM misc USE DIRECTED FOUR TIMES DAILY fluorometholone (FML) 0.1 % ophthalmic suspension instill 1 (ONE) DROP IN BOTH EYES FOUR TIMES DAILY FOR 7 DAYS then instill 1 (ONE) DROP IN BOTH EYES TWICE DAILY FOR 7 DAYS FLUoxetine (PROZAC) 20 mg, Oral, Daily glucose blood (Conterra Broadband ServicesTouch Ultra) test strip Fsbs bid insulin lispro (HumaLOG) 100 UNIT/ML injection INJECT 5-10 UNITS BREAKFAST, 25 UNITS LUNCH/ DINNER PLUS CORRECTIONS OF 1:30 > 150MG/DL ( MAX 100 UNITS A DAY) Lancets (OneTouch Delica Plus Zcezld86Y) misc use to test BLOOD SUGAR THREE [...] intervention. Johanne Hdez D.O. documented in this encounterShriners Hospitals for ChildrenEvmtptztcm74-10-4706 Miscellaneous Notes* Telephone Encounter - Olive Juárez - 02/28/2024 8:30 AM EDT PAP mask and supplies order with supportive documentation faxed to [facility]. documented in this encounterOhioHealth Doctors Hospital09-12-2024 Telephone encounter Note* Telephone Encounter - Olive Finn Franck - 02/28/2024 8:30 AM EDT PAP mask and supplies order with supportive documentation faxed to [facility]. [facility] History of Present illness Narrative* Hanna Butcher MD - 02/25/2024 10:30 AM EDT Images from the original note were not included. [address] [place] [address] Patient: Milad Seymour Date of : 1955 [...] PM 12/14/2023 12:21 AM 02/25/2024 10:00 AM [place] Sleepiness Scale Sitting and Reading 3 3 [...] Hanna Butcher MD [facility] Past Medical, Family, and Social History Update: The following portions of the patient's history were reviewed and updated as appropriate: allergies, current medications, past family history, past medical history, past social history, past surgicalhistory and problem list. Past Medical History: Diagnosis Date Anemia Unknown Arthritis Benign prostatic hyperplasia Cancer (CMS-HCC) PROSTATE COPD (chronic obstructive pulmonary disease) ([facility]) Unknown Diabetes mellitus type 2, controlled ([facility]) GERD (gastroesophageal reflux disease) History of placement of ear tubes right ear Hyperlipidemia Hypertension Jaundice 03/30/21 FRANK (obstructive sleep apnea) cpap Visual impairment glasses Past Surgical History: Procedure Laterality Date APPENDECTOMY CHOLECYSTECTOMY 04/06/21 COLONOSCOPY 2019 FOOT SURGERY heel spur right KNEE SURGERY bilateral scope LAPAROSCOPIC EPIGASTRIC HERNIA REPAIR REPAIR ROTATOR CUFF SHOULDER Right 07/19/2020 Performed by Karsten Crowell DO at [facility] REPAIR ROTATOR CUFF SHOULDER Right 12/10/2017 Performed by Karsten Crowell DO at [facility] SHOULDER SURGERY bilateral TONSILLECTOMY 06/1970 TYMPANOSTOMY [...] Activity Alcohol Use No documented in this encounterOhioHealth Doctors Hospital09-09-2024 Instructions* Patient Instructions* Hanna Butcher MD - 02/25/2024 10:30 AM EDT 1. Continue with current pressure setting 2. Reviewed data download 3. LDCT for lung cancer screening 4. Follow up 4 months documented in this encounterOhioHealth Doctors Hospital08-19-2024 Telephone encounter Note* Telephone Encounter - Walt Newton - 02/04/2024 4:27 PM EDT Like self pay shoes [facility] for [id number] Miscellaneous Notes* Telephone Encounter - Walt Newton - 02/04/2024 4:27 PM EDT Like self pay shoes documented in this encounterShriners Hospitals for ChildrenTmiqgtrbaw40-16-8388 Hospital Discharge instructions Patient Education 02/04/2024 12:42:37 [...] treatment? Where to find more information The [place] [employer]: www.cancer.org [place] [employer]: www.auanet.org Contact a health care [...] provider. Document Revised: 11/28/2021 Document Reviewed: 11/28/2021 [employer] Patient Education 2022 [employer]. Follow Up Care 02/12/2023 10:16:19 With:NICOLA RAYMUNDO, Peterson Owens, URL Address: [facility] [address], [place] [phone] When: Unknown [facility] 08-19-2024 NotePatient Education Oncology Prostate Cancer [...] Where to find more information ? The [place] [employer]: www.cancer.org ? [place] [employer] Association: www.auanet.org Contact a health care [...] front of the rectum. (more content not included)...[facility]07-18-2024 Miscellaneous Notes* Telephone Encounter - Oskar Contreras MD - 01/03/2024 12:57 PM EDT Patient seen by DARIO. Has follow up with Dr. Butcher on 02/25/2024. Probably should wait for that visit before deciding on how best to proceed with care. Titration study on 12/13/2023 (Zgkkil=403.0 lbs; BMI=36.9 kg/m2) DIAGNOSIS: Central Sleep Apnea [...] may also be considered. documented in this encounterOhioHealth Doctors Hospital07-18-2024 Telephone encounter Note* Telephone Encounter - Oskar Contreras MD - 01/03/2024 12:57 PM EDT Patient seen by SK. Has follow up with Dr. Butcher on 02/25/2024. Probably should wait for that visit before deciding on how best to proceed with care. Titration study on 12/13/2023 (Ievebp=048.0 lbs; BMI=36.9 kg/m2) DIAGNOSIS: Central Sleep Apnea [...] an oxygen titration may also be considered. [employer] Work Phone: [phone]) [phone] Miscellaneous Notes* Telephone Encounter - Aliza Escalera - 12/06/2023 1:55 PM EDT Pt notified per SK that sleep aid has been called into [facility] in [place] for him to picker and sorter load and unload and take with him the night of his upcoming sleep study. Pt voice understanding and was very appreciative. documented in this encounterUniversity Of Vermont Medical CenteruBank06-20-2024 Telephone encounter Note* Telephone Encounter - Aliza Escalera - 12/06/2023 1:55 PM EDT Pt notified per SK that sleep aid has been called into [facility] in [place] for him to picker and sorter load and unload and take with him the night of his upcoming sleep study. Pt voice understanding and was very appreciative. [employer]06-20-2024 History of Present illness Narrative* SONNY Denis - 12/06/2023 12:43 PM EDT Discussed Ambien [address] Marmolejo for night of sleep study. Ordered. SONNY Denis 12/06/23 1245 documented in this encounterUniversity Of Vermont Medical CenteruBank06-19-2024 Miscellaneous Notes* Telephone Encounter - Aliza Escalera - 12/05/2023 9:58 AM EDT Pt came into office, requesting help to reach the sleep lab to get his sleep study rescheduled. States he had to leave the date he was originally schedule due to the lab at [place] being too hot. Says having hard time reaching sleep lab to r/s, so told him would send them a message to call him. Pt says willing to go to [place] or [place]. Chat sent to sleep lab Hub to contact pt at [phone]. documented in this encounterTriHealth Bethesda North HospitalIdentification International [id number] Telephone encounter Note* Telephone Encounter - Aliza Escalera - 12/05/2023 9:58 AM EDT Pt came into office, requesting help to reach the sleep lab to get his sleep study rescheduled. States he had to leave the date he was originally schedule due to the lab at [place] being too hot. Says having hard time reaching sleep lab to r/s, so told him would send them a message to call him. Pt says willing to go to [place] or [place]. Chat sent to sleep lab Hub to contact pt at [phone]. [facility] Silver [id number] Miscellaneous Notes* Telephone Encounter - Aliza Escalera - 08/27/2023 10:11 AM EDT ----- Message from SONNY Denis sent at 08/24/2023 10:25 AM EST ----- EF >45% ok for ASV * Telephone Encounter - Aliza Escalera - 08/27/2023 10:11 AM EDT Noted below in sleep lab encounter and on appt desk for techs for titration appt documented in this encounterToledo Hospital [employer] [id number] Telephone encounter Note* Telephone Encounter - Aliza Escalera - 08/27/2023 10:11 AM EDT ----- Message from Gregoria Ralph APRN-JALIL sent at 08/24/2023 10:25 AM EST ----- EF >45% ok for ASV [facility] [employer] [id number] Telephone encounter Note* Telephone Encounter - Aliza Escalera - 08/27/2023 10:11 AM EDT Noted below in sleep lab encounter and on appt desk for techs for titration appt [facility] HospitalSunglassGbbunu12-49-9841 Miscellaneous Notes* Telephone Encounter - Zoraida Rosario - 08/17/2023 9:53 AM EST 08/15 received CPAP order 08/16 Scheduled CPAP at [facility] 6 Confirmation mailed and emailed [employer] CPAP order and 08/15 Loree notes in [facility] With TCO2 monitoring. Please obtain baseline in supine position. Starting pressure IPAP25 EPAP10 PS5 notes CSA on last download plans for Echo prior to titration documented in this encounterToledo Hospital [employer] [id number] Telephone encounter Note* Telephone Encounter - Zoraida Rosario - 08/17/2023 9:53 AM EST 08/15 received CPAP order 08/16 Scheduled CPAP at [facility]/ Confirmation mailed and emailed [employer] CPAP order and 08/15 Loree notes in epic With TCO2 monitoring. Please obtain baseline in supine position. 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 Cleaning supplies with soap and water. [place] Sleepiness Scale: Sitting and Reading: (!) Moderate [...] (CMS-HCC) PROSTATE COPD (chronic obstructive pulmonary disease) ([facility]) Unknown Diabetes mellitus type 2, controlled ([facility]) GERD (gastroesophageal reflux disease) History of placement of ear tubes right ear Hyperlipidemia Hypertension Jaundice 10/13/21 FRANK (obstructive sleep apnea) cpap Visual impairment [...] history of tobacco use, presenting hazards to [facility] - [place] low dose lung screenin [...] Standing Expiration Date: 08/15/2024 Order Specific Question: [facility] required diagnosis: Answer: Personal history of [...] Order Specific Question: Release to patient via [employer]TL Global Solutionshart? Answer: Immediate [1] Polysomnography 4 or more parameters with PAP titration Standing Status: Future Standing Expiration Date: 08/15/2024 Scheduling Instructions: With TCO2 monitoring. Please obtain baseline in supine position. Starting pressure IPAP25 EPAP10 PS5 notes CSA on last download plans for Echo prior to titration Order Specific Question: Follow Up Answer: [facility] to read and follow patient. [...] not to drive if sleepy, and to supervisor pullet farm if sleepiness occurs while driving. Above plan [...] that have escaped final proofreading. Gregoria Ralph [facility] Office: [phone] 2:57 PM on 08/15/2023 CC: MD Gregoria GONZALEZ APRN-CNP 08/16/23 1438 documented in this encounterOhioHealth Doctors Hospital02-28-2024 Instructions* Patient Instructions* SONNY Denis - 08/15/2023 1:15 PM EST If you re looking for general health and wellness resources, please visit [email or web address]. documented in this encounterOhioHealth Doctors Hospital02-15-2024 Miscellaneous Notes* Telephone Encounter - Aliza [...] still to schedule appt. documented in this encounterOhioHealth Doctors Hospital02-15-2024 Telephone encounter Note* Telephone Encounter - Aliza Escalera - 08/02/2023 5:34 PM EST Received sleep referral from Valeria Mckeon NP. Pt is already an established pt and last saw in 2020- was recommended to follow up with KW. However he was a no show for his last 2 appt with our office. Chat to Tahmina to advise if still to schedule appt. [place] [address]-12-2024 History of Present illness Narrative* Ashli Ross DO - 07/30/2023 12:53 PM ESTAssociated Problem(s): Type 2 diabetes mellitus with diabetic polyneuropathy, with long-term current use of insulin ([facility]) During the appointment today all pertinent labs, [...] Breakfast Lunch Dinner Snacks Drinks Premade meal ([place] and dressing) (Mac and cheese) Protein shake [...] polyneuropathy, with long-term current use of insulin ([facility]) During the appointment today all pertinent labs, [...] index (BMI) of36.0 to 36.9 in adult ([facility]) - Primary Follow up in about 3 [...] UNITS A DAY) LANCETS (ONETOUCH DELICA PLUS [id number]) [facility] use to test BLOOD SUGAR THREE TIMES [...] ER 50 mg tablet,extended release 24 hr SCI SolutionTOUCH ULTRA TEST STRIP use to test BLOOD SUGAR THREE TIMES DAILY SIMVASTATIN (ZOCOR) 40 MG TABLET Take 40 mg by mouth in the morning and 40 mg before bedtime. SPIRONOLACTONE (ALDACTONE) 50 MG TABLET TAKE 1 TABLET BY MOUTH DAILY Modified Medications No medications on file Discontinued Medications CONTINUOUS BLOOD GLUC SENSOR (FREESTYLE CORNELIUS 2 SENSOR) [facility] Use as directed LOPERAMIDE (IMODIUM) 2 MG CAPSULE Take 2 mg by mouth in the morning and 2 mg before bedtime. METHOCARBAMOL (ROBAXIN) 750 MG TABLET Take 1 tablet (750 mg) by mouth in the morning and 1 tablet (750 mg) at noon and 1 tablet (750 mg) in the evening and 1 tablet (750 mg) before bedtime. documented in this encounterShriners Hospitals for ChildrenWynrluqagu51-61-4073 [facility]Ber[facility]10-[facility] Evaluation note* Encounter Date Diagnosis Assessment Notes Treatment Notes Treatment Clinical Notes Mar, GERD (gastroesophageal reflux disease) (ICD-10 - K21.9) The patient continues to complain of ongoing regurgitation. He is taking Lansoprazole 30 mg dialy & we will increase this to 30 mg bid. Mar, Hemorrhoids (ICD-10 - K64.9) Mar, Alternating constipation and diarrhea (ICD-10 - R19.8) [employer] Other 10-03-2023 Evaluation note* Encounter Date Diagnosis Assessment Notes Treatment Notes Treatment Clinical Notes Mar, Gastroesophageal ref lux disease with esophagitis (ICD-10 - K21.0) [facility] Other 08-28-2023 Hospital Discharge instructions Patient Education [...] under a microscope. This is called the Whiteford score and the total score can range [...] similar to normal prostate cells (moderately differentiated). Whiteford 8, 9, or 10: This indicates that [...] stress of having cancer. General instructions Take fqlc-kto-aabbtht and prescription medicines only as told by your health care provider. If you have to go to the hospital, notify your cancer specialist (oncologist). Keep all follow-up visits. This is important. Where to find more information [place] [employer]: www.cancer.org [place] Society of Clinical Oncology: www.cancer.net National Cancer [place]: www.cancer.gov Contact a health care provider if: [...] provider. Document Revised: 08/31/2021 Document Reviewed: 08/31/2021 [employer] Patient Education 2022 [employer] Follow Up Care 02/03/2022 09:06:37 With:NICOLA RAYMUNDO, Peterson Owens, URL Address: [facility] [address], [place] [phone] When: Unknown Comments:1 yr w/ PSA [facility] 04-05-2023 Evaluation note* Encounter Date Diagnosis Assessment Notes Treatment Notes Treatment Clinical Notes Sep, Gastroesophageal ref lux disease with esophagitis (ICD-10 - K21.0) [employer] Other 02-06-2023 Procedure [facility]02-02-2023 Evaluation note* Encounter Date Diagnosis Assessment Notes Treatment Notes Treatment Clinical Notes Jul, Diarrhea (ICD-10 - R19.7) Jul, GERD (gastroesophageal reflux disease) (ICD-10 - K21.9) Jul, Hemorrhoids (ICD-10 - K64.9) PATIENT TO START ANUSOL CREAM USE SITZ BATH NEEDED Jul, Dysphagia (ICD-10 - R13.10) [facility] Other 10-28-2022 NotePROCEDURE: XR FOOT RT MIN 3 VIEWS COMPARISON: None. HISTORY: Pain in right foot FINDINGS: BONES:No acute fracture or dislocation. Persistent hammertoe deformities. Moderate hallux valgus. 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 Bulky enthesopathic spurring of the calcaneus SOFT TISSUES:Negative. No visible soft tissue swelling. EFFUSION:None visible. OTHER: Negative. IMPRESSION: Degenerative changes Electronically authenticated by: SORIN SHORE Date: 2022-04-14 18:01[facility]08-19-2022 Hospital Discharge instructions Patient Education 02/03/2022 [...] urethra. Follow these instructions at home: Take gljb-ffu-qhuprfb and prescription medicines only as told by [...] 06/04/2006 Document Revised: 04/29/2019 Document Reviewed: 07/09/2017 [employer] Patient Education 2019 [employer] Follow Up Care 08/05/2021 10:59:30 With:NICOLA RAYMUNDO, Peterson Owens, URL Address: [facility] [address] [place] [address]- When:1 year Comments:W/ TONO [facility] 08-17-2021 NoteHNO ID: [id number] Author: Fawad Diaz MD Service: ? Author [...] cc: Dank Campo MD (DrC) [address] [place] [address] Dr. Petersen Portions of the above note extracted and edited from previous visit as well as active information included in the EMR.[facility] 11-04-2020 NoteHNO ID: [id number] Author: Fawad Diaz MD Service: ? Author Type: Physician Type: Progress Notes Filed: 11/04/2020 9:44 AM Note Text: Radiation Oncology - Follow Up Note PATIENT NAME: Milad Seymour PATIENT DIAGNOSIS: DIAGNOSIS: Prostate adenocarcinoma, initial PSA 14.65, biopsy Whiteford score 3 + 3 = 6 (grade [...] ASSESSMENT/PLAN:DIAGNOSIS: Prostate adenocarcinoma, initial PSA 14.65, biopsy Whiteford score 3 + 3 = 6 (grade [...] Fawad Diaz MD cc: Dank Campo MD ([facility]) [address] [place] [address] Dr. [facility]enSt[facility] HospitalEvaluation + Plan note Future Appointments Appointment Date:02/12/2023 09:15:00 AM Scheduled Provider:Peterson PETERSEN MD Location:[facility] Appointment Type:URO Office Visit Diagnostic Tests Pending * PSA Total 02/03/22 [facility] evaluation + Plan note Future Appointments Appointment Date:02/12/2023 09:15:00 AM Scheduled Provider:Peterson PETERSEN MD Location:[facility] Appointment Type:URO Office Visit [facility] evaluation + Plan note Future Appointments Appointment Date:02/15/2024 08:15:00 AM Scheduled Provider:Peetrson PETERSEN MD Location[facility] Appointment Type:URO Office Visit Diagnostic Tests Pending * PSA Total 02/12/23 [facility] evaluation + Plan note Future Appointments Appointment Date:02/04/2024 11:30:00 AM Scheduled Provider:Peterson PETERSEN MD Location:[facility] Appointment Type:URO Office Visit [facility] evaluation + Plan note Future Appointments Appointment Date:02/09/2025 08:45:00 AM Scheduled Provider:Peterson PETERSEN MD Location:[facility] Appointment Type:URO Office Visit Diagnostic Tests Pending * PSA Total 02/04/24 [facility] evaluation noteNo assessment information available [facility] Work Phone: Evaluation noteNo InformationNort M2G Other Evaluation note* Diagnosis Class 2 severe obesity due to excess calories with serious comorbidity and body mass index (BMI) of 36.0 to 36.9 in adult ([facility])- Primary Type 2 diabetes mellitus with diabetic polyneuropathy, with long-term current use of insulin ([facility]) [facility]* Diagnosis Onset Date Resolution Status H/O rotator cuff surgery acu te [facility] Work Phone: Evaluation note* Diagnosis Onset Date Resolution Status Diarrhea acute GERD (gastroesophageal reflux disease) acute [facility] Work Phone: Evaluation note* Diagnosis Preop examination- Primary Unspecified pre-operative examination documented in this encounter [facility] HealthcareEvaluation [facility]* Diagnosis Internal derangement of left shoulder- Primary documented in this encounter [facility] HealthcareEvaluation note* Diagnosis Type 2 diabetes mellitus with diabetic polyneuropathy, with long-term current use of insulin ([facility])- Primary Class 2 severe obesity due to excess calories with serious comorbidity and body mass index (BMI) of 35.0 to 35.9 in adult ([facility] Primary Type 2 diabetes mellitus with diabetic polyneuropathy, with long-term current use of insulin ([facility]) Long-term insulin use ([facility]) Lumbar spondylosis- Primary Lumbosacral spondylosis without myelopathy Benign essential hypertension ([facility]) Essential hypertension, benign Bilateral leg edema Edema Class 2 severe obesity due to excess calories with serious comorbidity and body mass index (BMI) of 36.0 to 36.9 in adult ([facility] Primary Type 2 diabetes mellitus with diabetic polyneuropathy, with long-term current use of insulin ([facility]) Benign essential hypertension ([facility])- Primary Essential hypertension, benign Lumbar spondylosis Lumbosacral spondylosis without myelopathy Bilateral leg edema Edema Type 2 diabetes mellitus with diabetic polyneuropathy, with long-term current use of insulin ([facility]) Hypercholesteremia ([facility] Pure hypercholesterolemia Encounter for long-term (current) use of medications Encounter for long-term (current) use of other medications Obesity (BMI 30-39.9) Body mass index [BMI] 36.0-36.9, adult (Z68.36) JARAD (generalized anxiety disorder) ([facility])- Primary Generalized anxiety disorder Benign essential hypertension ([facility]) Essential hypertension, benign Class 2 severe obesity due to excess calories with serious comorbidity and body mass index (BMI) of 35.0 to 35.9 in adult ([facility] Primary Type 2 diabetes mellitus with diabetic polyneuropathy, with long-term current use of insulin ([facility]) Long-term insulin use ([facility]/HCC) Benign essential hypertension (CMS/HCC)- Primary Essential hypertension, benign JARAD (generalized anxiety disorder) ([facility]) Generalized anxiety disorder Bilateral leg edema Edema Lumbar spondylosis Lumbosacral spondylosis without myelopathy Benign essential hypertension (CMS/HCC)- Primary Essential hypertension, benign JARAD (generalized anxiety disorder) (CMS/HCC) Generalized anxiety disorder Lumbar spondylosis Lumbosacral spondylosis without myelopathy Bilateral leg edema Edema Prostate cancer ([facility]) Malignant neoplasm of prostate Type 2 diabetes mellitus with hyperglycemia, with long-term current use of insulin ([facility]) Class 2 severe obesity due to excess calories with serious comorbidity and body mass index (BMI) of 35.0 to 35.9 in adult ([facility])- Primary Type 2 diabetes mellitus with hyperglycemia, with long-term current use of insulin ([facility]) Type 2 diabetes mellitus with diabetic polyneuropathy, with long-term current use of insulin ([facility]) Long-term insulin use ([facility]) Type 2 diabetes mellitus with stage 3a chronic kidney disease, with long-term current use of insulin ([facility]) ([facility]) Pre-op examination- Primary Preop examination Unspecified pre-operative examination documented in this encounter [facility] HealthcareEvaluation note* Diagnosis Type 2 diabetes mellitus with diabetic polyneuropathy, with long-term current use of insulin ([facility])- Primary Class 2 severe obesity due to excess calories with serious comorbidity and body mass index (BMI) of 35.0 to 35.9 in adult ([facility])- Primary Type 2 diabetes mellitus with diabetic polyneuropathy, with long-term current use of insulin ([facility]) Long-term insulin use ([facility]) Lumbar spondylosis- Primary Lumbosacral spondylosis without myelopathy Benign essential hypertension ([facility]) Essential hypertension, benign Bilateral leg edema Edema Class 2 severe obesity due to excess calories with serious comorbidity and body mass index (BMI) of 36.0 to 36.9 in adult ([facility])- Primary Type 2 diabetes mellitus with diabetic polyneuropathy, with long-term current use of insulin ([facility]/HCC) Benign essential hypertension (CMS/HCC)- Primary Essential hypertension, benign Lumbar spondylosis Lumbosacral spondylosis without myelopathy Bilateral leg edema Edema Type 2 diabetes mellitus with diabetic polyneuropathy, with long-term current use of insulin ([facility]) Hypercholesteremia ([facility]) Pure hypercholesterolemia Encounter for long-term (current) use of medications Encounter for long-term (current) use of other medications Obesity (BMI 30-39.9) Body mass index [BMI] 36.0-36.9, adult (Z68.36) JARAD (generalized anxiety disorder) ([facility])- Primary Generalized anxiety disorder Benign essential hypertension ([facility]) Essential hypertension, benign Class 2 severe obesity due to excess calories with serious comorbidity and body mass index (BMI) of 35.0 to 35.9 in adult ([facility])- Primary Type 2 diabetes mellitus with diabetic polyneuropathy, with long-term current use of insulin ([facility]) Long-term insulin use ([facility]) Benign essential hypertension ([facility])- Primary Essential hypertension, benign JARAD (generalized anxiety disorder) ([facility]) Generalized anxiety disorder Bilateral leg edema Edema Lumbar spondylosis Lumbosacral spondylosis without myelopathy Benign essential hypertension ([facility])- Primary Essential hypertension, benign JARAD (generalized anxiety disorder) ([facility]) Generalized anxiety disorder Lumbar spondylosis Lumbosacral spondylosis without myelopathy Bilateral leg edema Edema Prostate cancer ([facility]) Malignant neoplasm of prostate Type 2 diabetes mellitus with hyperglycemia, with long-term current use of insulin ([facility]) Class 2 severe obesity due to excess calories with serious comorbidity and body mass index (BMI) of 35.0 to 35.9 in adult ([facility])- Primary Type 2 diabetes mellitus with hyperglycemia, with long-term current use of insulin ([facility]) Type 2 diabetes mellitus with diabetic polyneuropathy, with long-term current use of insulin ([facility]) Long-term insulin use ([facility]) Type 2 diabetes mellitus with stage 3a chronic kidney disease, with long-term current use of insulin ([facility]) ([facility]) Essential (primary) hypertension ([facility]) Unspecified essential hypertension documented [facility]* Diagnosis Type 2 diabetes mellitus with diabetic polyneuropathy, with long-term current use of insulin ([facility])- Primary Class 2 severe obesity due to excess calories with serious comorbidity and body mass index (BMI) of 35.0 to 35.9 in adult ([facility])- Primary Type 2 diabetes mellitus with diabetic polyneuropathy, with long-term current use of insulin ([facility]) Long-term insulin use ([facility]) Lumbar spondylosis- Primary Lumbosacral spondylosis without myelopathy Benign essential hypertension ([facility]) Essential hypertension, benign Bilateral leg edema Edema Class 2 severe obesity due to excess calories with serious comorbidity and body mass index (BMI) of 36.0 to 36.9 in adult [facility] Primary Type 2 diabetes mellitus with diabetic polyneuropathy, with long-term current use of insulin ([facility]) Benign essential hypertension ([facility])- Primary Essential hypertension, benign Lumbar spondylosis Lumbosacral spondylosis without myelopathy Bilateral leg edema Edema Type 2 diabetes mellitus with diabetic polyneuropathy, with long-term current use of insulin ([facility]) [facility]cholesteremia [facility] Pure hypercholesterolemia Encounter for long-term (current) use of medications Encounter for long-term (current) use of other medications Obesity (BMI 30-39.9) Body mass index [BMI] 36.0-36.9, adult (Z68.36) JARAD (generalized anxiety disorder) ([facility])- Primary Generalized anxiety disorder Benign essential hypertension ([facility]) Essential hypertension, benign Class 2 severe obesity due to excess calories with serious comorbidity and body mass index (BMI) of 35.0 to 35.9 in adult [facility] Primary Type 2 diabetes mellitus with diabetic polyneuropathy, with long-term current use of insulin [facility] Long-term insulin use [facility] Benign essential hypertension ([facility])- Primary Essential hypertension, benign JARAD (generalized anxiety disorder) ([facility]) Generalized anxiety disorder Bilateral leg edema Edema Lumbar spondylosis Lumbosacral spondylosis without myelopathy Benign essential hypertension ([facility])- Primary Essential hypertension, benign JARAD (generalized anxiety disorder) ([facility]) Generalized anxiety disorder Lumbar spondylosis Lumbosacral spondylosis without myelopathy Bilateral leg edema Edema Prostate cancer ([facility]) Malignant neoplasm of prostate Type 2 diabetes mellitus with hyperglycemia, with long-term current use of insulin ([facility]) Class 2 severe obesity due to excess calories with serious comorbidity and body mass index (BMI) of 35.0 to 35.9 in adult ([facility] Primary Type 2 diabetes mellitus with hyperglycemia, with long-term current use of insulin [facility] Type 2 diabetes mellitus with diabetic polyneuropathy, with long-term current use of insulin ([facility]) Long-term insulin use ([facility]) Type 2 diabetes mellitus with stage 3a chronic kidney disease, with long-term current use of insulin (HCC) ([facility]) Internal derangement of left shoulder- Primary Type 2 diabetes mellitus with diabetic polyneuropathy, with long-term current use of insulin ([facility]) documented in this encounter [facility] HealthcareEvaluation [facility]* Diagnosis Type 2 diabetes mellitus with diabetic polyneuropathy, with long-term current use of insulin ([facility])- Primary Class 2 severe obesity due to excess calories with serious comorbidity and body mass index (BMI) of 35.0 to 35.9 in adult ([facility])- Primary Type 2 diabetes mellitus with diabetic polyneuropathy, with long-term current use of insulin ([facility]) Long-term insulin use ([facility]) Lumbar spondylosis- Primary Lumbosacral spondylosis without myelopathy Benign essential hypertension ([facility]) Essential hypertension, benign Bilateral leg edema Edema Class 2 severe obesity due to excess calories with serious comorbidity and body mass index (BMI) of 36.0 to 36.9 in adult ([facility])- Primary Type 2 diabetes mellitus with diabetic polyneuropathy, with long-term current use of insulin ([facility]) Benign essential hypertension ([facility])- Primary Essential hypertension, benign Lumbar spondylosis Lumbosacral spondylosis without myelopathy Bilateral leg edema Edema Type 2 diabetes mellitus with diabetic polyneuropathy, with long-term current use of insulin ([facility]) Hypercholesteremia ([facility]) Pure hypercholesterolemia Encounter for long-term (current) use of medications Encounter for long-term (current) use of other medications Obesity (BMI 30-39.9) Body mass index [BMI] 36.0-36.9, adult (Z68.36) JARAD (generalized anxiety disorder) ([facility])- Primary Generalized anxiety disorder Benign essential hypertension ([facility]) Essential hypertension, benign Class 2 severe obesity due to excess calories with serious comorbidity and body mass index (BMI) of 35.0 to 35.9 in adult ([facility])- Primary Type 2 diabetes mellitus with diabetic polyneuropathy, with long-term current use of insulin ([facility]) Long-term insulin use ([facility]) Benign essential hypertension ([facility])- Primary Essential hypertension, benign JARAD (generalized anxiety disorder) ([facility]) Generalized anxiety disorder Bilateral leg edema Edema Lumbar spondylosis Lumbosacral spondylosis without myelopathy Benign essential hypertension ([facility])- Primary Essential hypertension, benign JARAD (generalized anxiety disorder) ([facility]) Generalized anxiety disorder Lumbar spondylosis Lumbosacral spondylosis without myelopathy Bilateral leg edema Edema Prostate cancer ([facility]) Malignant neoplasm of prostate Type 2 diabetes mellitus with hyperglycemia, with long-term current use of insulin ([facility]) Class 2 severe obesity due to excess calories with serious comorbidity and body mass index (BMI) of 35.0 to 35.9 in adult ([facility])- Primary Type 2 diabetes mellitus with hyperglycemia, with long-term current use of insulin ([facility]) Type 2 diabetes mellitus with diabetic polyneuropathy, with long-term current use of insulin ([facility]) Long-term insulin use ([facility]) Type 2 diabetes mellitus with stage 3a chronic kidney disease, with long-term current use of insulin ([facility]) ([facility]) Class 2 severe obesity due to excess calories with serious comorbidity and body mass index (BMI) of 35.0 to 35.9 in adult ([facility])- Primary Type 2 diabetes mellitus with diabetic polyneuropathy, with long-term current use of insulin ([facility]) Type 2 diabetes mellitus with stage 3a chronic kidney disease, with long-term current use of insulin ([facility]) ([facility]) Long-term insulin use ([facility]) documented in this encounter [facility] HealthcareEvaluation note* Diagnosis Type 2 diabetes mellitus with diabetic polyneuropathy, with long-term current use of insulin ([facility])- Primary Class 2 severe obesity due to excess calories with serious comorbidity and body mass index (BMI) of 35.0 to 35.9 in adult ([facility])- Primary Type 2 diabetes mellitus with diabetic polyneuropathy, with long-term current use of insulin ([facility]) Long-term insulin use ([facility]) Lumbar spondylosis- Primary Lumbosacral spondylosis without myelopathy Benign essential hypertension ([facility]) Essential hypertension, benign Bilateral leg edema Edema Class 2 severe obesity due to excess calories with serious comorbidity and body mass index (BMI) of 36.0 to 36.9 in adult ([facility])- Primary Type 2 diabetes mellitus with diabetic polyneuropathy, with long-term current use of insulin ([facility]) Benign essential hypertension ([facility])- Primary Essential hypertension, benign Lumbar spondylosis Lumbosacral spondylosis without myelopathy Bilateral leg edema Edema Type 2 diabetes mellitus with diabetic polyneuropathy, with long-term current use of insulin ([facility]) Hypercholesteremia ([facility]) Pure hypercholesterolemia Encounter for long-term (current) use of medications Encounter for long-term (current) use of other medications Obesity (BMI 30-39.9) Body mass index [BMI] 36.0-36.9, adult (Z68.36) JARAD (generalized anxiety disorder) ([facility])- Primary Generalized anxiety disorder Benign essential hypertension ([facility]) Essential hypertension, benign Class 2 severe obesity due to excess calories with serious comorbidity and body mass index (BMI) of 35.0 to 35.9 in adult ([facility])- Primary Type 2 diabetes mellitus with diabetic polyneuropathy, with long-term current use of insulin ([facility]) Long-term insulin use ([facility]) Benign essential hypertension ([facility])- Primary Essential hypertension, benign JARAD (generalized anxiety disorder) ([facility]) Generalized anxiety disorder Bilateral leg edema Edema Lumbar spondylosis Lumbosacral spondylosis without myelopathy Benign essential hypertension ([facility])- Primary Essential hypertension, benign JARAD (generalized anxiety disorder) ([facility]) Generalized anxiety disorder Lumbar spondylosis Lumbosacral spondylosis without myelopathy Bilateral leg edema Edema Prostate cancer ([facility]) Malignant neoplasm of prostate Type 2 diabetes mellitus with hyperglycemia, with long-term current use of insulin ([facility]) Class 2 severe obesity due to excess calories with serious comorbidity and body mass index (BMI) of 35.0 to 35.9 in adult ([facility])- Primary Type 2 diabetes mellitus with hyperglycemia, with long-term current use of insulin ([facility]) Type 2 diabetes mellitus with diabetic polyneuropathy, with long-term current use of insulin ([facility]) Long-term insulin use ([facility]) Type 2 diabetes mellitus with stage 3a chronic kidney disease, with long-term current use of insulin ([facility]) ([facility]) Class 2 severe obesity due to excess calories with serious comorbidity and body mass index (BMI) of 35.0 to 35.9 in adult ([facility] Primary Type 2 diabetes mellitus with diabetic polyneuropathy, with long-term current use of insulin ([facility]) Type 2 diabetes mellitus with stage 3a chronic kidney disease, with long-term current use of insulin ([facility]) ([facility]) Long-term insulin use ([facility]) S/P arthroscopy of left shoulder- Primary documented in this encounter [facility] HealthcareEvaluation [facility]* Diagnosis Type 2 diabetes mellitus with diabetic polyneuropathy, with long-term current use of insulin ([facility])- Primary Class 2 severe obesity due to excess calories with serious comorbidity and body mass index (BMI) of 35.0 to 35.9 in adult ([facility])- Primary Type 2 diabetes mellitus with diabetic polyneuropathy, with long-term current use of insulin ([facility]) Long-term insulin use ([facility] [facility] Lumbar spondylosis- Primary Lumbosacral spondylosis without myelopathy Benign essential hypertension ([facility]) Essential hypertension, benign Bilateral leg edema Edema Class 2 severe obesity due to excess calories with serious comorbidity and body mass index (BMI) of 36.0 to 36.9 in adult [place] [place] Primary Type 2 diabetes mellitus with diabetic polyneuropathy, with long-term current use of insulin ([facility]) Benign essential hypertension ([facility])- Primary Essential hypertension, benign Lumbar spondylosis Lumbosacral spondylosis without myelopathy Bilateral leg edema Edema Type 2 diabetes mellitus with diabetic polyneuropathy, with long-term current use of insulin ([facility]) Hypercholesteremia ([facility]) Pure hypercholesterolemia Encounter for long-term (current) use of medications Encounter for long-term (current) use of other medications Obesity (BMI 30-39.9) Body mass index [BMI] 36.0-36.9, adult (Z68.36) JARAD (generalized anxiety disorder) ([facility])- Primary Generalized anxiety disorder Benign essential hypertension ([facility]) Essential hypertension, benign Class 2 severe obesity due to excess calories with serious comorbidity and body mass index (BMI) of 35.0 to 35.9 in adult [place] [place] Primary Type 2 diabetes mellitus with diabetic polyneuropathy, with long-term current use of insulin ([facility]) Long-term insulin use ([facility]) Benign essential hypertension ([facility])- Primary Essential hypertension, benign JARAD (generalized anxiety disorder) ([facility]) Generalized anxiety disorder Bilateral leg edema Edema Lumbar spondylosis Lumbosacral spondylosis without myelopathy Benign essential hypertension ([facility])- Primary Essential hypertension, benign JARAD (generalized anxiety disorder) ([facility]) Generalized anxiety disorder Lumbar spondylosis Lumbosacral spondylosis without myelopathy Bilateral leg edema Edema Prostate cancer ([facility]) Malignant neoplasm of prostate Type 2 diabetes mellitus with hyperglycemia, with long-term current use of insulin ([facility]) Class 2 severe obesity due to excess calories with serious comorbidity and body mass index (BMI) of 35.0 to 35.9 in adult ([facility])- Primary Type 2 diabetes mellitus with hyperglycemia, with long-term current use of insulin ([facility]) Type 2 diabetes mellitus with diabetic polyneuropathy, with long-term current use of insulin ([facility]) Long-term insulin use ([facility]) Type 2 diabetes mellitus with stage 3a chronic kidney disease, with long-term current use of insulin ([facility]) ([facility]) Class 2 severe obesity due to excess calories with serious comorbidity and body mass index (BMI) of 35.0 to 35.9 in adult ([facility])- Primary Type 2 diabetes mellitus with diabetic polyneuropathy, with long-term current use of insulin ([facility]) Type 2 diabetes mellitus with stage 3a chronic kidney disease, with long-term current use of insulin ([facility]) ([facility] [place] Long-term insulin use ([facility]) S/P arthroscopy of left shoulder- Primary documented in this encounter [facility] HealthcareEvaluation note* Diagnosis Type 2 diabetes mellitus with diabetic polyneuropathy, with long-term current use of insulin ([facility])- Primary Class 2 severe obesity due to excess calories with serious comorbidity and body mass index (BMI) of 35.0 to 35.9 in adult ([facility])- Primary Type 2 diabetes mellitus with diabetic polyneuropathy, with long-term current use of insulin ([facility]) Long-term insulin use ([facility]) Lumbar spondylosis- Primary Lumbosacral spondylosis without myelopathy Benign essential hypertension ([facility]) Essential hypertension, benign Bilateral leg edema Edema Class 2 severe obesity due to excess calories with serious comorbidity and body mass index (BMI) of 36.0 to 36.9 in adult ([facility])- Primary Type 2 diabetes mellitus with diabetic polyneuropathy, with long-term current use of insulin ([facility]) Benign essential hypertension ([facility])- Primary Essential hypertension, benign Lumbar spondylosis Lumbosacral spondylosis without myelopathy Bilateral leg edema Edema Type 2 diabetes mellitus with diabetic polyneuropathy, with long-term current use of insulin ([facility]) Hypercholesteremia ([facility]) Pure hypercholesterolemia Encounter for long-term (current) use of medications Encounter for long-term (current) use of other medications Obesity (BMI 30-39.9) Body mass index [BMI] 36.0-36.9, adult (Z68.36) JARAD (generalized anxiety disorder) ([facility])- Primary Generalized anxiety disorder Benign essential hypertension ([facility]) Essential hypertension, benign Class 2 severe obesity due to excess calories with serious comorbidity and body mass index (BMI) of 35.0 to 35.9 in adult ([facility] [place] Primary Type 2 diabetes mellitus with diabetic polyneuropathy, with long-term current use of insulin ([facility]) Long-term insulin use ([facility]) Benign essential hypertension ([facility])- Primary Essential hypertension, benign JARAD (generalized anxiety disorder) ([facility]) Generalized anxiety disorder Bilateral leg edema Edema Lumbar spondylosis Lumbosacral spondylosis without myelopathy Benign essential hypertension ([facility])- Primary Essential hypertension, benign JARAD (generalized anxiety disorder) ([facility]) Generalized anxiety disorder Lumbar spondylosis Lumbosacral spondylosis without myelopathy Bilateral leg edema Edema Prostate cancer ([facility]) Malignant neoplasm of prostate Type 2 diabetes mellitus with hyperglycemia, with long-term current use of insulin ([facility]) Class 2 severe obesity due to excess calories with serious comorbidity and body mass index (BMI) of 35.0 to 35.9 in adult ([facility] [place] Primary Type 2 diabetes mellitus with hyperglycemia, with long-term current use of insulin ([facility]) Type 2 diabetes mellitus with diabetic polyneuropathy, with long-term current use of insulin ([facility]) Long-term insulin use ([facility]) Type 2 diabetes mellitus with stage 3a chronic kidney disease, with long-term current use of insulin ([facility]) ([facility] [place] Class 2 severe obesity due to excess calories with serious comorbidity and body mass index (BMI) of 35.0 to 35.9 in adult ([facility] [place] Primary Type 2 diabetes mellitus with diabetic polyneuropathy, with long-term current use of insulin ([facility]) Type 2 diabetes mellitus with stage 3a chronic kidney disease, with long-term current use of insulin (HCC) ([facility]) Long-term insulin use ([facility]) S/P arthroscopy of left shoulder- Primary documented in this encounter [facility] HealthcareEvaluation note* Diagnosis Type 2 diabetes mellitus with diabetic polyneuropathy, with long-term current use of insulin ([facility])- Primary Class 2 severe obesity due to excess calories with serious comorbidity and body mass index (BMI) of 35.0 to 35.9 in adult ([facility])- Primary Type 2 diabetes mellitus with diabetic polyneuropathy, with long-term current use of insulin ([facility]) Long-term insulin use ([facility]) Lumbar spondylosis- Primary Lumbosacral spondylosis without myelopathy Benign essential hypertension ([facility]) Essential hypertension, benign Bilateral leg edema Edema Class 2 severe obesity due to excess calories with serious comorbidity and body mass index (BMI) of 36.0 to 36.9 in adult ([facility])- Primary Type 2 diabetes mellitus with diabetic polyneuropathy, with long-term current use of insulin ([facility]) Benign essential hypertension ([facility])- Primary Essential hypertension, benign Lumbar spondylosis Lumbosacral spondylosis without myelopathy Bilateral leg edema Edema Type 2 diabetes mellitus with diabetic polyneuropathy, with long-term current use of insulin ([facility]) Hypercholesteremia ([facility]) Pure hypercholesterolemia Encounter for long-term (current) use of medications Encounter for long-term (current) use of other medications Obesity (BMI 30-39.9) Body mass index [BMI] 36.0-36.9, adult (Z68.36) JARAD (generalized anxiety disorder) ([facility])- Primary Generalized anxiety disorder Benign essential hypertension ([facility]) Essential hypertension, benign Class 2 severe obesity due to excess calories with serious comorbidity and body mass index (BMI) of 35.0 to 35.9 in adult ([facility])- Primary Type 2 diabetes mellitus with diabetic polyneuropathy, with long-term current use of insulin ([facility]) Long-term insulin use ([facility]) Benign essential hypertension ([facility])- Primary Essential hypertension, benign JARAD (generalized anxiety disorder) ([facility]) Generalized anxiety disorder Bilateral leg edema Edema Lumbar spondylosis Lumbosacral spondylosis without myelopathy Benign essential hypertension ([facility])- Primary Essential hypertension, benign JARAD (generalized anxiety disorder) ([facility]) Generalized anxiety disorder Lumbar spondylosis Lumbosacral spondylosis without myelopathy Bilateral leg edema Edema Prostate cancer ([facility]) Malignant neoplasm of prostate Type 2 diabetes mellitus with hyperglycemia, with long-term current use of insulin ([facility]) Class 2 severe obesity due to excess calories with serious comorbidity and body mass index (BMI) of 35.0 to 35.9 in adult ([facility] [place] Primary Type 2 diabetes mellitus with hyperglycemia, with long-term current use of insulin ([facility]) Type 2 diabetes mellitus with diabetic polyneuropathy, with long-term current use of insulin [place] [place] Long-term insulin use ([facility] [place] Type 2 diabetes mellitus with stage 3a chronic kidney disease, with long-term current use of insulin ([facility]) ([facility] [place] Class 2 severe obesity due to excess calories with serious comorbidity and body mass index (BMI) of 35.0 to 35.9 in adult ([facility] [place] Primary Type 2 diabetes mellitus with diabetic polyneuropathy, with long-term current use of insulin ([facility]) Type 2 diabetes mellitus with stage 3a chronic kidney disease, with long-term current use of insulin ([facility]) ([facility] [place] Long-term insulin use ([facility] [place] S/P arthroscopy of left shoulder- Primary Left shoulder pain, unspecified chronicity documented in this encounter [facility] HealthcareEvaluation note* Diagnosis Internal derangement of left shoulder- Primary Acute pain of left shoulder documented in this encounter [facility] HealthcareEvaluation note* Diagnosis Type 2 diabetes mellitus with diabetic polyneuropathy, with long-term current use of insulin ([facility])- Primary Class 2 severe obesity due to excess calories with serious comorbidity and body mass index (BMI) of 35.0 to 35.9 in adult ([facility] [place] Primary Type 2 diabetes mellitus with diabetic polyneuropathy, with long-term current use of insulin ([facility] [place] Long-term insulin use ([facility] [place] Lumbar spondylosis- Primary Lumbosacral spondylosis without myelopathy Benign essential hypertension ([facility]) Essential hypertension, benign Bilateral leg edema Edema Class 2 severe obesity due to excess calories with serious comorbidity and body mass index (BMI) of 36.0 to 36.9 in adult ([facility] [place] Primary Type 2 diabetes mellitus with diabetic polyneuropathy, with long-term current use of insulin ([facility]) Benign essential hypertension ([facility])- Primary Essential hypertension, benign Lumbar spondylosis Lumbosacral spondylosis without myelopathy Bilateral leg edema Edema Type 2 diabetes mellitus with diabetic polyneuropathy, with long-term current use of insulin ([facility]) Hypercholesteremia ([facility]) Pure hypercholesterolemia Encounter for long-term (current) use of medications Encounter for long-term (current) use of other medications Obesity (BMI 30-39.9) Body mass index [BMI] 36.0-36.9, adult (Z68.36) JARAD (generalized anxiety disorder) ([facility])- Primary Generalized anxiety disorder Benign essential hypertension ([facility]) Essential hypertension, benign Class 2 severe obesity due to excess calories with serious comorbidity and body mass index (BMI) of 35.0 to 35.9 in adult ([facility] [place] Primary Type 2 diabetes mellitus with diabetic polyneuropathy, with long-term current use of insulin ([facility]) Long-term insulin use ([facility]) Benign essential hypertension ([facility])- Primary Essential hypertension, benign JARAD (generalized anxiety disorder) ([facility]) Generalized anxiety disorder Bilateral leg edema Edema Lumbar spondylosis Lumbosacral spondylosis without myelopathy Benign essential hypertension ([facility])- Primary Essential hypertension, benign JARAD (generalized anxiety disorder) ([facility]) Generalized anxiety disorder Lumbar spondylosis Lumbosacral spondylosis without myelopathy Bilateral leg edema Edema Prostate cancer ([facility]) Malignant neoplasm of prostate Type 2 diabetes mellitus with hyperglycemia, with long-term current use of insulin ([facility]) Class 2 severe obesity due to excess calories with serious comorbidity and body mass index (BMI) of 35.0 to 35.9 in adult ([facility] [place] Primary Type 2 diabetes mellitus with hyperglycemia, with long-term current use of insulin ([facility]) Type 2 diabetes mellitus with diabetic polyneuropathy, with long-term current use of insulin ([facility]) Long-term insulin use ([facility]) Type 2 diabetes mellitus with stage 3a chronic kidney disease, with long-term current use of insulin ([facility]) ([facility] [place] Class 2 severe obesity due to excess calories with serious comorbidity and body mass index (BMI) of 35.0 to 35.9 in adult ([facility] [place] Primary Type 2 diabetes mellitus with diabetic polyneuropathy, with long-term current use of insulin (CMS/HCC) Type 2 diabetes mellitus with stage 3a chronic kidney disease, with long-term current use of insulin (HCC) (CMS/HCC) Long-term insulin use (CMS/HCC) Benign essential hypertension (CMS/HCC)- Primary Essential hypertension, benign JARAD (generalized anxiety disorder) ([facility]) Generalized anxiety disorder Lumbar spondylosis Lumbosacral spondylosis without myelopathy Type 2 diabetes mellitus with diabetic polyneuropathy, with long-term current use of insulin (CMS/HCC) Type 2 diabetes mellitus with stage 3b chronic kidney disease, with long-term current use of insulin (HCC) ([facility]) documented in this encounter [facility] HealthcareEvaluation note* Diagnosis Type 2 diabetes mellitus with diabetic polyneuropathy, with long-term current use of insulin (CMS/HCC)- Primary Class 2 severe obesity due to excess calories with serious comorbidity and body mass index (BMI) of 35.0 to 35.9 in adult ([facility])- Primary Type 2 diabetes mellitus with diabetic polyneuropathy, with long-term current use of insulin (CMS/HCC) Long-term insulin use ([facility]) Lumbar spondylosis- Primary Lumbosacral spondylosis without myelopathy Benign essential hypertension ([facility]) Essential hypertension, benign Bilateral leg edema Edema Class 2 severe obesity due to excess calories with serious comorbidity and body mass index (BMI) of 36.0 to 36.9 in adult ([facility])- Primary Type 2 diabetes mellitus with diabetic polyneuropathy, with long-term current use of insulin ([facility]/HCC) Benign essential hypertension ([facility]/HCC)- Primary Essential hypertension, benign Lumbar spondylosis Lumbosacral spondylosis without myelopathy Bilateral leg edema Edema Type 2 diabetes mellitus with diabetic polyneuropathy, with long-term current use of insulin ([facility]) Hypercholesteremia ([facility]) Pure hypercholesterolemia Encounter for long-term (current) use of medications Encounter for long-term (current) use of other medications Obesity (BMI 30-39.9) Body mass index [BMI] 36.0-36.9, adult (Z68.36) JARAD (generalized anxiety disorder) ([facility])- Primary Generalized anxiety disorder Benign essential hypertension ([facility]/HCC) Essential hypertension, benign Class 2 severe obesity due to excess calories with serious comorbidity and body mass index (BMI) of 35.0 to 35.9 in adult ([facility])- Primary Type 2 diabetes mellitus with diabetic [...] myelopathy Bilateral leg edema Edema Prostate cancer ([facility]) Malignant neoplasm of prostate Type 2 diabetes mellitus with hyperglycemia, with long-term current use of insulin ([facility]) Class 2 severe obesity due to excess calories with serious comorbidity and body mass index (BMI) of 35.0 to 35.9 in adult ([facility])- Primary Type 2 diabetes mellitus with hyperglycemia, with long-term current use of insulin ([facility]) Type 2 diabetes mellitus with diabetic polyneuropathy, with long-term current use of insulin ([facility]) Long-term insulin use ([facility]) Type 2 diabetes mellitus with stage 3a chronic kidney disease, with long-term current use of insulin (HCC) ([facility]) Class 2 severe obesity due to excess calories with serious comorbidity and body mass index (BMI) of 35.0 to 35.9 in adult ([facility])- Primary Type 2 diabetes mellitus with diabetic polyneuropathy, with long-term current use of insulin ([facility]/HCC) Type 2 diabetes mellitus with stage 3a chronic kidney disease, with long-term current use of insulin (HCC) ([facility]/HCC) Long-term insulin use ([facility]) Benign essential hypertension ([facility]/HCC)- Primary Essential hypertension, benign JARAD (generalized anxiety disorder) ([facility]) Generalized anxiety disorder Lumbar spondylosis Lumbosacral spondylosis without myelopathy Type 2 diabetes mellitus with diabetic polyneuropathy, with long-term current use of insulin ([facility]/HCC) Type 2 diabetes mellitus with stage 3b chronic kidney disease, with long-term current use of insulin (HCC) ([facility]) Left shoulder pain, unspecified chronicity- Primary S/P arthroscopy of left shoulder documented in this encounter [facility] HealthcareEvaluation note* Diagnosis Type 2 diabetes mellitus with diabetic polyneuropathy, with long-term current use of insulin ([facility])- Primary Class 2 severe obesity due to excess calories with serious comorbidity and body mass index (BMI) of 35.0 to 35.9 in adult ([facility])- Primary Type 2 diabetes mellitus with diabetic polyneuropathy, with long-term current use of insulin ([facility]) Long-term insulin use ([facility]) Lumbar spondylosis- Primary Lumbosacral spondylosis without myelopathy Benign essential hypertension ([facility]) Essential hypertension, benign Bilateral leg edema Edema Class 2 severe obesity due to excess calories with serious comorbidity and body mass index (BMI) of 36.0 to 36.9 in adult ([facility])- Primary Type 2 diabetes mellitus with diabetic polyneuropathy, with long-term current use of insulin ([facility]) Benign essential hypertension ([facility])- Primary Essential hypertension, benign Lumbar spondylosis Lumbosacral spondylosis without myelopathy Bilateral leg edema Edema Type 2 diabetes mellitus with diabetic polyneuropathy, with long-term current use of insulin ([facility]) Hypercholesteremia ([facility]) Pure hypercholesterolemia Encounter for long-term (current) use of medications Encounter for long-term (current) use of other medications Obesity (BMI 30-39.9) Body mass index [BMI] 36.0-36.9, adult (Z68.36) JARAD (generalized anxiety disorder) ([facility] [place] Primary Generalized anxiety disorder Benign essential hypertension ([facility] [place]) Essential hypertension, benign Class 2 severe obesity due to excess calories with serious comorbidity and body mass index (BMI) of 35.0 to 35.9 in adult ([facility] [place])- Primary Type 2 diabetes mellitus with diabetic polyneuropathy, with long-term current use of insulin ([facility] [place]) Long-term insulin use ([facility] [place]) Benign essential hypertension ([facility] [place])- Primary Essential hypertension, benign JARAD (generalized anxiety disorder) ([facility] [place]) Generalized anxiety disorder Bilateral leg edema Edema Lumbar spondylosis Lumbosacral spondylosis without myelopathy Benign essential hypertension ([facility])- Primary Essential hypertension, benign JARAD (generalized anxiety disorder) ([facility] [place]) Generalized anxiety disorder Lumbar spondylosis Lumbosacral spondylosis without myelopathy Bilateral leg edema Edema Prostate cancer ([facility] [place]) Malignant neoplasm of prostate Type 2 diabetes mellitus with hyperglycemia, with long-term current use of insulin ([facility] [place]) Class 2 severe obesity due to excess calories with serious comorbidity and body mass index (BMI) of 35.0 to 35.9 in adult ([facility] [place])- Primary Type 2 diabetes mellitus with hyperglycemia, with long-term current use of insulin ([facility] [place]) Type 2 diabetes mellitus with diabetic polyneuropathy, with long-term current use of insulin ([facility] [place]) Long-term insulin use ([facility] [place]) Type 2 diabetes mellitus with stage 3a chronic kidney disease, with long-term current use of insulin ([facility] [place]) ([facility] [place]) Class 2 severe obesity due to excess calories with serious comorbidity and body mass index (BMI) of 35.0 to 35.9 in adult ([facility] [place])- Primary Type 2 diabetes mellitus with diabetic polyneuropathy, with long-term current use of insulin ([facility] [place]) Type 2 diabetes mellitus with stage 3a chronic kidney disease, with long-term current use of insulin ([facility] [place]) [place] [place] Long-term insulin use ([facility] [place]) Benign essential hypertension ([facility] [place])- Primary Essential hypertension, benign JARAD (generalized anxiety disorder) ([facility] [place]) Generalized anxiety disorder Lumbar spondylosis Lumbosacral spondylosis without myelopathy Type 2 diabetes mellitus with diabetic polyneuropathy, with long-term current use of insulin ([facility] [place]) Type 2 diabetes mellitus with stage 3b chronic kidney disease, with long-term current use of insulin ([facility] [place]) ([facility] [place]) Contusion of left foot, initial encounter- Primary Pain in left foot Pain in soft tissues of limb Diabetic polyneuropathy associated with type 2 diabetes mellitus ([facility] [place]) Encounter for long-term (current) use of insulin ([facility] [place]) Encounter for long-term (current) use of insulin documented in this encounter [facility] HealthcareEvaluation note* Diagnosis Type 2 diabetes mellitus with diabetic polyneuropathy, with long-term current use of insulin ([facility] [place])- Primary Class 2 severe obesity due to excess calories with serious comorbidity and body mass index (BMI) of 35.0 to 35.9 in adult ([facility] [place])- Primary Type 2 diabetes mellitus with diabetic polyneuropathy, with long-term current use of insulin ([facility] [place]) Long-term insulin use ([facility] [place]) Lumbar spondylosis- Primary Lumbosacral spondylosis without myelopathy Benign essential hypertension ([facility]CC) Essential hypertension, benign Bilateral leg edema Edema Class 2 severe obesity due to excess calories with serious comorbidity and body mass index (BMI) of 36.0 to 36.9 in adult ([facility] [place])- Primary Type 2 diabetes mellitus with diabetic polyneuropathy, with long-term current use of insulin ([facility] [place]) Benign essential hypertension ([facility] [place])- Primary Essential hypertension, benign Lumbar spondylosis Lumbosacral spondylosis without myelopathy Bilateral leg edema Edema Type 2 diabetes mellitus with diabetic polyneuropathy, with long-term current use of insulin ([facility] [place]) Hypercholesteremia ([facility] [place]) Pure hypercholesterolemia Encounter for long-term (current) use of medications Encounter for long-term (current) use of other medications Obesity (BMI 30-39.9) Body mass index [BMI] 36.0-36.9, adult (Z68.36) JARAD (generalized anxiety disorder) ([facility] [place])- Primary Generalized anxiety disorder Benign essential hypertension ([facility] [place]) Essential hypertension, benign Class 2 severe obesity due to excess calories with serious comorbidity and body mass index (BMI) of 35.0 to 35.9 in adult ([facility] [place] Primary Type 2 diabetes mellitus with diabetic polyneuropathy, with long-term current use of insulin ([facility] [place]) Long-term insulin use ([facility] [place]) Benign essential hypertension ([facility] [place])- Primary Essential hypertension, benign JARAD (generalized anxiety disorder) ([facility] [place]) Generalized anxiety disorder Bilateral leg edema Edema Lumbar spondylosis Lumbosacral spondylosis without myelopathy Benign essential hypertension ([facility] [place])- Primary Essential hypertension, benign JARAD (generalized anxiety disorder) ([facility] [place]) Generalized anxiety disorder Lumbar spondylosis Lumbosacral spondylosis without myelopathy Bilateral leg edema Edema Prostate cancer ([facility] [place]) Malignant neoplasm of prostate Type 2 diabetes mellitus with hyperglycemia, with long-term current use of insulin ([facility] [place]) Class 2 severe obesity due to excess calories with serious comorbidity and body mass index (BMI) of 35.0 to 35.9 in adult [place] [place] Primary Type 2 diabetes mellitus with hyperglycemia, with long-term current use of insulin ([facility] [place]) Type 2 diabetes mellitus with diabetic polyneuropathy, with long-term current use of insulin ([facility] [place]) Long-term insulin use ([facility] [place]) Type 2 diabetes mellitus with stage 3a chronic kidney disease, with long-term current use of insulin (HCC) ([facility] [place]) Class 2 severe obesity due to excess calories with serious comorbidity and body mass index (BMI) of 35.0 to 35.9 in adult ([facility] [place])- Primary Type 2 diabetes mellitus with diabetic polyneuropathy, with long-term current use of insulin ([facility] [place]) Type 2 diabetes mellitus with stage 3a chronic kidney disease, with long-term current use of insulin (HCC) ([facility] [place]) Long-term insulin use ([facility] [place]) Benign essential hypertension ([facility] [place])- Primary Essential hypertension, benign JARAD (generalized anxiety disorder) ([facility] [place]) Generalized anxiety disorder Lumbar spondylosis Lumbosacral spondylosis without myelopathy Type 2 diabetes mellitus with diabetic polyneuropathy, with long-term current use of insulin ([facility] [place]) Type 2 diabetes mellitus with stage 3b chronic kidney disease, with long-term current use of insulin ([facility] [place]) ([facility] [place]) Left shoulder pain, unspecified chronicity- Primary S/P arthroscopy of left shoulder documented in this encounter [facility] HealthcareEvaluation note* Diagnosis Type 2 diabetes mellitus with diabetic polyneuropathy, with long-term current use of insulin ([facility] [place]) Preop examination Unspecified pre-operative examination documented in this encounter [facility] HealthcareEvaluation note* Diagnosis Type 2 diabetes mellitus with diabetic polyneuropathy, with long-term current use of insulin ([facility] [place])- Primary Class 2 severe obesity due to excess calories with serious comorbidity and body mass index (BMI) of 35.0 to 35.9 in adult ([facility] [place])- Primary Type 2 diabetes mellitus with diabetic polyneuropathy, with long-term current use of insulin ([facility] [place]) Long-term insulin use ([facility] [place]) Lumbar spondylosis- Primary Lumbosacral spondylosis without myelopathy Benign essential hypertension ([facility] [place]) Essential hypertension, benign Bilateral leg edema Edema Class 2 severe obesity due to excess calories with serious comorbidity and body mass index (BMI) of 36.0 to 36.9 in adult ([facility] [place])- Primary Type 2 diabetes mellitus with diabetic polyneuropathy, with long-term current use of insulin ([facility] [place]) Benign essential hypertension ([facility] [place])- Primary Essential hypertension, benign Lumbar spondylosis Lumbosacral spondylosis without myelopathy Bilateral leg edema Edema Type 2 diabetes mellitus with diabetic polyneuropathy, with long-term current use of insulin (CMS/HCC) Hypercholesteremia ([facility] [place]) Pure hypercholesterolemia Encounter for long-term (current) use of medications Encounter for long-term (current) use of other medications Obesity (BMI 30-39.9) Body mass index [BMI] 36.0-36.9, adult (Z68.36) JARAD (generalized anxiety disorder) (CMS/HCC)- Primary Generalized anxiety disorder Benign essential hypertension ([facility] [place]) Essential hypertension, benign Class 2 severe obesity due to excess calories with serious comorbidity and body mass index (BMI) of 35.0 to 35.9 in adult ([facility] [place])- Primary Type 2 diabetes mellitus with diabetic polyneuropathy, with long-term current use of insulin ([facility] [place]) Long-term insulin use ([facility] [place]) Benign essential hypertension (CMS/HCC)- Primary Essential hypertension, benign JARAD (generalized anxiety disorder) (CMS/HCC) Generalized anxiety disorder Bilateral leg edema Edema Lumbar spondylosis Lumbosacral spondylosis without myelopathy Benign essential hypertension (CMS/HCC)- Primary Essential hypertension, benign JARAD (generalized anxiety disorder) (CMS/HCC) Generalized anxiety disorder Lumbar spondylosis Lumbosacral spondylosis without myelopathy Bilateral leg edema Edema Prostate cancer ([facility] [place]) Malignant neoplasm of prostate Type 2 diabetes mellitus with hyperglycemia, with long-term current use of insulin ([facility] [place]) Class 2 severe obesity due to excess calories with serious comorbidity and body mass index (BMI) of 35.0 to 35.9 in adult ([facility] [place])- Primary Type 2 diabetes mellitus with hyperglycemia, with long-term current use of insulin ([facility] [place]) Type 2 diabetes mellitus with diabetic polyneuropathy, with long-term current use of insulin ([facility]/HCC) Long-term insulin use ([facility] [place]) Type 2 diabetes mellitus with stage 3a chronic kidney disease, with long-term current use of insulin (HCC) ([facility] [place]) Class 2 severe obesity due to excess calories with serious comorbidity and body mass index (BMI) of 35.0 to 35.9 in adult ([facility] [place])- Primary Type 2 diabetes mellitus with diabetic polyneuropathy, with long-term current use of insulin ([facility] [place]) Type 2 diabetes mellitus with stage 3a chronic kidney disease, with long-term current use of insulin (HCC) ([facility] [place]) Long-term insulin use ([facility] [place]) Benign essential hypertension ([facility] [place])- Primary Essential hypertension, benign JARAD (generalized anxiety disorder) ([facility] [place]) Generalized anxiety disorder Lumbar spondylosis Lumbosacral spondylosis without myelopathy Type 2 diabetes mellitus with diabetic polyneuropathy, with long-term current use of insulin ([facility] [place]) Type 2 diabetes mellitus with stage 3b chronic kidney disease, with long-term current use of insulin ([facility] [place]) ([facility] [place]) Left shoulder pain, unspecified chronicity- Primary S/P arthroscopy of left shoulder S/P arthroscopy of left shoulder- Primary documented in this encounter [facility] HealthcareEvaluation note* Diagnosis Type 2 diabetes mellitus with diabetic polyneuropathy, with long-term current use of insulin ([facility] [place])- Primary Class 2 severe obesity due to excess calories with serious comorbidity and body mass index (BMI) of 35.0 to 35.9 in adult ([facility] [place])- Primary Type 2 diabetes mellitus with diabetic polyneuropathy, with long-term current use of insulin ([facility] [place]) Long-term insulin use ([facility] [place]) Lumbar spondylosis- Primary Lumbosacral spondylosis without myelopathy Benign essential hypertension ([facility] [place]) Essential hypertension, benign Bilateral leg edema Edema Class 2 severe obesity due to excess calories with serious comorbidity and body mass index (BMI) of 36.0 to 36.9 in adult ([facility] [place] Primary Type 2 diabetes mellitus with diabetic polyneuropathy, with long-term current use of insulin ([facility] [place]) Benign essential hypertension ([facility] [place])- Primary Essential hypertension, benign Lumbar spondylosis Lumbosacral spondylosis without myelopathy Bilateral leg edema Edema Type 2 diabetes mellitus with diabetic polyneuropathy, with long-term current use of insulin ([facility] [place]) Hypercholesteremia ([facility] [place]) Pure hypercholesterolemia Encounter for long-term (current) use of medications Encounter for long-term (current) use of other medications Obesity (BMI 30-39.9) Body mass index [BMI] 36.0-36.9, adult (Z68.36) JARAD (generalized anxiety disorder) ([facility] [place])- Primary Generalized anxiety disorder Benign essential hypertension ([facility] [place]) Essential hypertension, benign Class 2 severe obesity due to excess calories with serious comorbidity and body mass index (BMI) of 35.0 to 35.9 in adult ([facility] [place] Primary Type 2 diabetes mellitus with diabetic polyneuropathy, with long-term current use of insulin (CMS/HCC) Long-term insulin use ([facility]/HCC) Benign essential hypertension (CMS/HCC)- Primary Essential hypertension, benign JARAD (generalized anxiety disorder) (CMS/HCC) Generalized anxiety disorder Bilateral leg edema Edema Lumbar spondylosis Lumbosacral spondylosis without myelopathy Benign essential hypertension (CMS/HCC)- Primary Essential hypertension, benign JARAD (generalized anxiety disorder) (CMS/HCC) Generalized anxiety disorder Lumbar spondylosis Lumbosacral spondylosis without myelopathy Bilateral leg edema Edema Prostate cancer ([facility] [place]) Malignant neoplasm of prostate Type 2 diabetes mellitus with hyperglycemia, with long-term current use of insulin ([facility] [place]) Class 2 severe obesity due to excess calories with serious comorbidity and body mass index (BMI) of 35.0 to 35.9 in adult ([facility] [place])- Primary Type 2 diabetes mellitus with hyperglycemia, with long-term current use of insulin ([facility] [place]) Type 2 diabetes mellitus with diabetic polyneuropathy, with long-term current use of insulin ([facility]/HCC) Long-term insulin use ([facility] [place]) Type 2 diabetes mellitus with stage 3a chronic kidney disease, with long-term current use of insulin (HCC) ([facility] [place]) Class 2 severe obesity due to excess calories with serious comorbidity and body mass index (BMI) of 35.0 to 35.9 in adult ([facility] [place])- Primary Type 2 diabetes mellitus with diabetic polyneuropathy, with long-term current use of insulin ([facility]/HCC) Type 2 diabetes mellitus with stage 3a chronic kidney disease, with long-term current use of insulin (HCC) ([facility]/HCC) Long-term insulin use ([facility]/HCC) Benign essential hypertension (CMS/HCC)- Primary Essential hypertension, benign JARAD (generalized anxiety disorder) ([facility] [place]) Generalized anxiety disorder Lumbar spondylosis Lumbosacral spondylosis without myelopathy Type 2 diabetes mellitus with diabetic polyneuropathy, with long-term current use of insulin ([facility]/HCC) Type 2 diabetes mellitus with stage 3b chronic kidney disease, with long-term current use of insulin (HCC) ([facility]/HCC) S/P arthroscopy of left shoulder- Primary documented in this encounter [facility] HealthcareEvaluation note* Diagnosis Type 2 diabetes mellitus with diabetic polyneuropathy, with long-term current use of insulin ([facility] [place])- Primary Class 2 severe obesity due to excess calories with serious comorbidity and body mass index (BMI) of 35.0 to 35.9 in adult [facility] [place] Primary Type 2 diabetes mellitus with diabetic polyneuropathy, with long-term current use of insulin ([facility] [place]) [facility]-term insulin use [facility] [place] Lumbar spondylosis- Primary Lumbosacral spondylosis without myelopathy Benign essential hypertension ([facility] [place]) Essential hypertension, benign Bilateral leg edema Edema Class 2 severe obesity due to excess calories with serious comorbidity and body mass index (BMI) of 36.0 to 36.9 in adult ([facility] [place] Primary Type 2 diabetes mellitus with diabetic polyneuropathy, with long-term current use of insulin [facility] [place] Benign essential hypertension [facility] [place] Primary Essential hypertension, benign Lumbar spondylosis Lumbosacral spondylosis without myelopathy Bilateral leg edema Edema Type 2 diabetes mellitus with diabetic polyneuropathy, with long-term current use of insulin [facility] [place] Hypercholesteremia ([facility] [place] Pure hypercholesterolemia Encounter for long-term (current) use of medications Encounter for long-term (current) use of other medications Obesity (BMI 30-39.9) Body mass index [BMI] 36.0-36.9, adult (Z68.36) JARAD (generalized anxiety disorder) ([facility] [place])- Primary Generalized anxiety disorder Benign essential hypertension [facility] [place] Essential hypertension, benign Class 2 severe obesity due to excess calories with serious comorbidity and body mass index (BMI) of 35.0 to 35.9 in adult ([facility] [place] Primary Type 2 diabetes mellitus with diabetic polyneuropathy, with long-term current use of insulin [facility] [place] insulin use [facility] [place] Benign essential hypertension ([facility] [place])- Primary Essential hypertension, benign JARAD (generalized anxiety disorder) ([facility] [place]) Generalized anxiety disorder Bilateral leg edema Edema Lumbar spondylosis Lumbosacral spondylosis without myelopathy Benign essential hypertension ([facility] [place])- Primary Essential hypertension, benign JARAD (generalized anxiety disorder) ([facility] [place]) Generalized anxiety disorder Lumbar spondylosis Lumbosacral spondylosis without myelopathy Bilateral leg edema Edema Prostate cancer ([facility] [place]) Malignant neoplasm of prostate Type 2 diabetes mellitus with hyperglycemia, with long-term current use of insulin [facility] [place] Class 2 severe obesity due to excess calories with serious comorbidity and body mass index (BMI) of 35.0 to 35.9 in adult ([facility] [place])- Primary Type 2 diabetes mellitus with hyperglycemia, with long-term current use of insulin ([facility] [place]) Type 2 diabetes mellitus with diabetic polyneuropathy, with long-term current use of insulin ([facility] [place]) Long-term insulin use ([facility] [place]) Type 2 diabetes mellitus with stage 3a chronic kidney disease, with long-term current use of insulin ([facility] [place]) ([facility] [place]) Class 2 severe obesity due to excess calories with serious comorbidity and body mass index (BMI) of 35.0 to 35.9 in adult ([facility] [place])- Primary Type 2 diabetes mellitus with diabetic polyneuropathy, with long-term current use of insulin ([facility] [place]) Type 2 diabetes mellitus with stage 3a chronic kidney disease, with long-term current use of insulin ([facility] [place]) ([facility] [place] Long-term insulin use ([facility] [place]) Benign essential hypertension ([facility] [place])- Primary Essential hypertension, benign JARAD (generalized anxiety disorder) ([facility] [place]) Generalized anxiety disorder Lumbar spondylosis Lumbosacral spondylosis without myelopathy Type 2 diabetes mellitus with diabetic polyneuropathy, with long-term current use of insulin ([facility] [place]) Type 2 diabetes mellitus with stage 3b chronic kidney disease, with long-term current use of insulin ([facility] [place]) ([facility] [place]) Left shoulder pain, unspecified chronicity- Primary S/P arthroscopy of left shoulder documented in this encounter [facility] HealthcareEvaluation note* Diagnosis Type 2 diabetes mellitus with diabetic polyneuropathy, with long-term current use of insulin ([facility])- Primary Class 2 severe obesity due to excess calories with serious comorbidity and body mass index (BMI) of 35.0 to 35.9 in adult ([facility])- Primary Type 2 diabetes mellitus with diabetic polyneuropathy, with long-term current use of insulin ([facility]) Long-term insulin use ([facility]) Lumbar spondylosis- Primary Lumbosacral spondylosis without myelopathy Benign essential hypertension ([facility]) Essential hypertension, benign Bilateral leg edema Edema Class 2 severe obesity due to excess calories with serious comorbidity and body mass index (BMI) of 36.0 to 36.9 in adult [place] [place] Primary Type 2 diabetes mellitus with diabetic polyneuropathy, with long-term current use of insulin ([facility]) Benign essential hypertension ([facility])- Primary Essential hypertension, benign Lumbar spondylosis Lumbosacral spondylosis without myelopathy Bilateral leg edema Edema Type 2 diabetes mellitus with diabetic polyneuropathy, with long-term current use of insulin ([facility]) Hypercholesteremia ([facility]) Pure hypercholesterolemia Encounter for long-term (current) use of medications Encounter for long-term (current) use of other medications Obesity (BMI 30-39.9) Body mass index [BMI] 36.0-36.9, adult (Z68.36) JARAD (generalized anxiety disorder) ([facility])- Primary Generalized anxiety disorder Benign essential hypertension ([facility]) Essential hypertension, benign Class 2 severe obesity due to excess calories with serious comorbidity and body mass index (BMI) of 35.0 to 35.9 in adult ([facility])- Primary Type 2 diabetes mellitus with diabetic polyneuropathy, with long-term current use of insulin ([facility]) Long-term insulin use ([facility]) Benign essential hypertension ([facility])- Primary Essential hypertension, benign JARAD (generalized anxiety disorder) ([facility]) Generalized anxiety disorder Bilateral leg edema Edema Lumbar spondylosis Lumbosacral spondylosis without myelopathy Benign essential hypertension ([facility])- Primary Essential hypertension, benign JARAD (generalized anxiety disorder) ([facility]) Generalized anxiety disorder Lumbar spondylosis Lumbosacral spondylosis without myelopathy Bilateral leg edema Edema Prostate cancer ([facility]) Malignant neoplasm of prostate Type 2 diabetes mellitus with hyperglycemia, with long-term current use of insulin ([facility]) Class 2 severe obesity due to excess calories with serious comorbidity and body mass index (BMI) of 35.0 to 35.9 in adult [place] [place] Primary Type 2 diabetes mellitus with hyperglycemia, with long-term current use of insulin ([facility]) Type 2 diabetes mellitus with diabetic polyneuropathy, with long-term current use of insulin ([facility]) Long-term insulin use ([facility]) Type 2 diabetes mellitus with stage 3a chronic kidney disease, with long-term current use of insulin ([facility]) ([facility]) Class 2 severe obesity due to excess calories with serious comorbidity and body mass index (BMI) of 35.0 to 35.9 in adult ([facility] [place] Primary Type 2 diabetes mellitus with diabetic polyneuropathy, with long-term current use of insulin ([facility]) Type 2 diabetes mellitus with stage 3a chronic kidney disease, with long-term current use of insulin (HCC) ([facility]) Long-term insulin use ([facility]) Benign essential hypertension ([facility])- Primary Essential hypertension, benign JARAD (generalized anxiety disorder) ([facility]) Generalized anxiety disorder Lumbar spondylosis Lumbosacral spondylosis without myelopathy Type 2 diabetes mellitus with diabetic polyneuropathy, with long-term current use of insulin ([facility]) Type 2 diabetes mellitus with stage 3b chronic kidney disease, with long-term current use of insulin ([facility]) ([facility]) Left shoulder pain, unspecified chronicity- Primary S/P arthroscopy of left shoulder documented in this encounter [facility] HealthcareEvaluation note* Diagnosis Type 2 diabetes mellitus with diabetic polyneuropathy, with long-term current use of insulin ([facility])- Primary Class 2 severe obesity due to excess calories with serious comorbidity and body mass index (BMI) of 35.0 to 35.9 in adult ([facility])- Primary Type 2 diabetes mellitus with diabetic polyneuropathy, with long-term current use of insulin ([facility]) Long-term insulin use ([facility]) Lumbar spondylosis- Primary Lumbosacral spondylosis without myelopathy Benign essential hypertension ([facility]) Essential hypertension, benign Bilateral leg edema Edema Class 2 severe obesity due to excess calories with serious comorbidity and body mass index (BMI) of 36.0 to 36.9 in adult ([facility])- Primary Type 2 diabetes mellitus with diabetic polyneuropathy, with long-term current use of insulin ([facility]) Benign essential hypertension ([facility])- Primary Essential hypertension, benign Lumbar spondylosis Lumbosacral spondylosis without myelopathy Bilateral leg edema Edema Type 2 diabetes mellitus with diabetic polyneuropathy, with long-term current use of insulin ([facility]) Hypercholesteremia ([facility]) Pure hypercholesterolemia Encounter for long-term (current) use of medications Encounter for long-term (current) use of other medications Obesity (BMI 30-39.9) Body mass index [BMI] 36.0-36.9, adult (Z68.36) JARAD (generalized anxiety disorder) ([facility])- Primary Generalized anxiety disorder Benign essential hypertension ([facility]) Essential hypertension, benign Class 2 severe obesity due to excess calories with serious comorbidity and body mass index (BMI) of 35.0 to 35.9 in adult ([facility])- Primary Type 2 diabetes mellitus with diabetic polyneuropathy, with long-term current use of insulin ([facility]/HCC) Long-term insulin use ([facility]/HCC) Benign essential hypertension (CMS/HCC)- Primary Essential hypertension, benign JARAD (generalized anxiety disorder) ([facility]/HCC) Generalized anxiety disorder Bilateral leg edema Edema Lumbar spondylosis Lumbosacral spondylosis without myelopathy Benign essential hypertension (CMS/HCC)- Primary Essential hypertension, benign JARAD (generalized anxiety disorder) ([facility]/HCC) Generalized anxiety disorder Lumbar spondylosis Lumbosacral spondylosis without myelopathy Bilateral leg edema Edema Prostate cancer ([facility]) Malignant neoplasm of prostate Type 2 diabetes mellitus with hyperglycemia, with long-term current use of insulin ([facility]) Class 2 severe obesity due to excess calories with serious comorbidity and body mass index (BMI) of 35.0 to 35.9 in adult ([facility])- Primary Type 2 diabetes mellitus with hyperglycemia, with long-term current use of insulin ([facility]) Type 2 diabetes mellitus with diabetic polyneuropathy, with long-term current use of insulin ([facility]) Long-term insulin use ([facility]) Type 2 diabetes mellitus with stage 3a chronic kidney disease, with long-term current use of insulin (HCC) ([facility]) Class 2 severe obesity due to excess calories with serious comorbidity and body mass index (BMI) of 35.0 to 35.9 in adult ([facility])- Primary Type 2 diabetes mellitus with diabetic polyneuropathy, with long-term current use of insulin ([facility]) Type 2 diabetes mellitus with stage 3a chronic kidney disease, with long-term current use of insulin (HCC) ([facility]/HCC) Long-term insulin use ([facility]) Benign essential hypertension ([facility]/HCC)- Primary Essential hypertension, benign JARAD (generalized anxiety disorder) ([facility]) Generalized anxiety disorder Lumbar spondylosis Lumbosacral spondylosis without myelopathy Type 2 diabetes mellitus with diabetic polyneuropathy, with long-term current use of insulin ([facility]) Type 2 diabetes mellitus with stage 3b chronic kidney disease, with long-term current use of insulin (HCC) ([facility]) Left shoulder pain, unspecified chronicity- Primary S/P arthroscopy of left shoulder documented in this encounter [facility] HealthcareEvaluation note* Diagnosis Type 2 diabetes mellitus with diabetic polyneuropathy, with long-term current use of insulin ([facility])- Primary Class 2 severe obesity due to excess calories with serious comorbidity and body mass index (BMI) of 35.0 to 35.9 in adult ([facility])- Primary Type 2 diabetes mellitus with diabetic polyneuropathy, with long-term current use of insulin ([facility]) Long-term insulin use ([facility]) Lumbar spondylosis- Primary Lumbosacral spondylosis without myelopathy Benign essential hypertension ([facility]) Essential hypertension, benign Bilateral leg edema Edema Class 2 severe obesity due to excess calories with serious comorbidity and body mass index (BMI) of 36.0 to 36.9 in adult ([facility])- Primary Type 2 diabetes mellitus with diabetic polyneuropathy, with long-term current use of insulin ([facility]) Benign essential hypertension ([facility])- Primary Essential hypertension, benign Lumbar spondylosis Lumbosacral spondylosis without myelopathy Bilateral leg edema Edema Type 2 diabetes mellitus with diabetic polyneuropathy, with long-term current use of insulin ([facility]) Hypercholesteremia ([facility]) Pure hypercholesterolemia Encounter for long-term (current) use of medications Encounter for long-term (current) use of other medications Obesity (BMI 30-39.9) Body mass index [BMI] 36.0-36.9, adult (Z68.36) JARAD (generalized anxiety disorder) ([facility])- Primary Generalized anxiety disorder Benign essential hypertension ([facility]) Essential hypertension, benign Class 2 severe obesity due to excess calories with serious comorbidity and body mass index (BMI) of 35.0 to 35.9 in adult ([facility])- Primary Type 2 diabetes mellitus with diabetic polyneuropathy, with long-term current use of insulin ([facility]) Long-term insulin use ([facility]) Benign essential hypertension ([facility])- Primary Essential hypertension, benign JARAD (generalized anxiety disorder) ([facility]) Generalized anxiety disorder Bilateral leg edema Edema Lumbar spondylosis Lumbosacral spondylosis without myelopathy Benign essential hypertension ([facility])- Primary Essential hypertension, benign JARAD (generalized anxiety disorder) ([facility]) Generalized anxiety disorder Lumbar spondylosis Lumbosacral spondylosis without myelopathy Bilateral leg edema Edema Prostate cancer ([facility]) Malignant neoplasm of prostate Type 2 diabetes mellitus with hyperglycemia, with long-term current use of insulin ([facility]) Class 2 severe obesity due to excess calories with serious comorbidity and body mass index (BMI) of 35.0 to 35.9 in adult ([facility])- Primary Type 2 diabetes mellitus with hyperglycemia, with long-term current use of insulin ([facility]) Type 2 diabetes mellitus with diabetic polyneuropathy, with long-term current use of insulin ([facility]) Long-term insulin use ([facility]) Type 2 diabetes mellitus with stage 3a chronic kidney disease, with long-term current use of insulin ([facility]) ([facility]) Class 2 severe obesity due to excess calories with serious comorbidity and body mass index (BMI) of 35.0 to 35.9 in adult ([facility])- Primary Type 2 diabetes mellitus with diabetic polyneuropathy, with long-term current use of insulin ([facility]) Type 2 diabetes mellitus with stage 3a chronic kidney disease, with long-term current use of insulin ([facility]) ([facility]) Long-term insulin use ([facility]) Benign essential hypertension ([facility])- Primary Essential hypertension, benign JARAD (generalized anxiety disorder) ([facility]) Generalized anxiety disorder Lumbar spondylosis Lumbosacral spondylosis without myelopathy Type 2 diabetes mellitus with diabetic polyneuropathy, with long-term current use of insulin ([facility]) Type 2 diabetes mellitus with stage 3b chronic kidney disease, with long-term current use of insulin ([facility]) ([facility]) S/P arthroscopy of left shoulder- Primary documented in this encounter [facility] HealthcareEvaluation note* Diagnosis Type 2 diabetes mellitus with diabetic polyneuropathy, with long-term current use of insulin ([facility])- Primary Class 2 severe obesity due to excess calories with serious comorbidity and body mass index (BMI) of 35.0 to 35.9 in adult ([facility])- Primary Type 2 diabetes mellitus with diabetic polyneuropathy, with long-term current use of insulin ([facility]) Long-term insulin use ([facility]) Lumbar spondylosis- Primary Lumbosacral spondylosis without myelopathy Benign essential hypertension ([facility]) Essential hypertension, benign Bilateral leg edema Edema Class 2 severe obesity due to excess calories with serious comorbidity and body mass index (BMI) of 36.0 to 36.9 in adult ([facility])- Primary Type 2 diabetes mellitus with diabetic polyneuropathy, with long-term current use of insulin ([facility]) Benign essential hypertension ([facility])- Primary Essential hypertension, benign Lumbar spondylosis Lumbosacral spondylosis without myelopathy Bilateral leg edema Edema Type 2 diabetes mellitus with diabetic polyneuropathy, with long-term current use of insulin ([facility]) Hypercholesteremia ([facility]) Pure hypercholesterolemia Encounter for long-term (current) use of medications Encounter for long-term (current) use of other medications Obesity (BMI 30-39.9) Body mass index [BMI] 36.0-36.9, adult (Z68.36) JARAD (generalized anxiety disorder) ([facility])- Primary Generalized anxiety disorder Benign essential hypertension ([facility]) Essential hypertension, benign Class 2 severe obesity due to excess calories with serious comorbidity and body mass index (BMI) of 35.0 to 35.9 in adult ([facility])- Primary Type 2 diabetes mellitus with diabetic polyneuropathy, with long-term current use of insulin ([facility]) Long-term insulin use ([facility]) Benign essential hypertension ([facility])- Primary Essential hypertension, benign JARAD (generalized anxiety disorder) ([facility]) Generalized anxiety disorder Bilateral leg edema Edema Lumbar spondylosis Lumbosacral spondylosis without myelopathy Benign essential hypertension ([facility]/HCC)- Primary Essential hypertension, benign JARAD (generalized anxiety disorder) ([facility]) Generalized anxiety disorder Lumbar spondylosis Lumbosacral spondylosis without myelopathy Bilateral leg edema Edema Prostate cancer ([facility]) Malignant neoplasm of prostate Type 2 diabetes mellitus with hyperglycemia, with long-term current use of insulin ([facility]) Class 2 severe obesity due to excess calories with serious comorbidity and body mass index (BMI) of 35.0 to 35.9 in adult ([facility])- Primary Type 2 diabetes mellitus with hyperglycemia, with long-term current use of insulin ([facility]) Type 2 diabetes mellitus with diabetic polyneuropathy, with long-term current use of insulin ([facility]) Long-term insulin use ([facility]) Type 2 diabetes mellitus with stage 3a chronic kidney disease, with long-term current use of insulin ([facility]) ([facility]) Class 2 severe obesity due to excess calories with serious comorbidity and body mass index (BMI) of 35.0 to 35.9 in adult ([facility])- Primary Type 2 diabetes mellitus with diabetic polyneuropathy, with long-term current use of insulin ([facility]) Type 2 diabetes mellitus with stage 3a chronic kidney disease, with long-term current use of insulin ([facility]) ([facility]) Long-term insulin use ([facility]) Benign essential hypertension ([facility])- Primary Essential hypertension, benign JARAD (generalized anxiety disorder) ([facility]) Generalized anxiety disorder Lumbar spondylosis Lumbosacral spondylosis without myelopathy Type 2 diabetes mellitus with diabetic polyneuropathy, with long-term current use of insulin ([facility]) Type 2 diabetes mellitus with stage 3b chronic kidney disease, with long-term current use of insulin ([facility]) ([facility]) Left shoulder pain, unspecified chronicity- Primary S/P arthroscopy of left shoulder documented in this encounter [facility] HealthcareEvaluation note* Diagnosis Type 2 diabetes mellitus with diabetic polyneuropathy, with long-term current use of insulin ([facility])- Primary Class 2 severe obesity due to excess calories with serious comorbidity and body mass index (BMI) of 35.0 to 35.9 in adult ([facility])- Primary Type 2 diabetes mellitus with diabetic polyneuropathy, with long-term current use of insulin ([facility]) Long-term insulin use ([facility]) Lumbar spondylosis- Primary Lumbosacral spondylosis without myelopathy Benign essential hypertension ([facility]) Essential hypertension, benign Bilateral leg edema Edema Class 2 severe obesity due to excess calories with serious comorbidity and body mass index (BMI) of 36.0 to 36.9 in adult ([facility] [place] Primary Type 2 diabetes mellitus with diabetic polyneuropathy, with long-term current use of insulin ([facility]) Benign essential hypertension ([facility])- Primary Essential hypertension, benign Lumbar spondylosis Lumbosacral spondylosis without myelopathy Bilateral leg edema Edema Type 2 diabetes mellitus with diabetic polyneuropathy, with long-term current use of insulin ([facility]) Hypercholesteremia ([facility] Pure hypercholesterolemia Encounter for long-term (current) use of medications Encounter for long-term (current) use of other medications Obesity (BMI 30-39.9) Body mass index [BMI] 36.0-36.9, adult (Z68.36) JARAD (generalized anxiety disorder) ([facility]/HCC)- Primary Generalized anxiety disorder Benign essential hypertension ([facility]/HCC) Essential hypertension, benign Class 2 severe obesity due to excess calories with serious comorbidity and body mass index (BMI) of 35.0 to 35.9 in adult ([facility])- Primary Type 2 diabetes mellitus with diabetic polyneuropathy, with long-term current use of insulin ([facility]/HCC) Long-term insulin use ([facility]) Benign essential hypertension ([facility]/HCC)- Primary Essential hypertension, benign JARAD (generalized anxiety disorder) ([facility]CC) Generalized anxiety disorder Bilateral leg edema Edema Lumbar spondylosis Lumbosacral spondylosis without myelopathy Benign essential hypertension (CMS/HCC)- Primary Essential hypertension, benign JARAD (generalized anxiety disorder) ([facility]/HCC) Generalized anxiety disorder Lumbar spondylosis Lumbosacral spondylosis without myelopathy Bilateral leg edema Edema Prostate cancer ([facility]) Malignant neoplasm of prostate Type 2 diabetes mellitus with hyperglycemia, with long-term current use of insulin ([facility]) Class 2 severe obesity due to excess calories with serious comorbidity and body mass index (BMI) of 35.0 to 35.9 in adult ([facility])- Primary Type 2 diabetes mellitus with hyperglycemia, with long-term current use of insulin ([facility]) Type 2 diabetes mellitus with diabetic polyneuropathy, with long-term current use of insulin ([facility]) Long-term insulin use ([facility]) Type 2 diabetes mellitus with stage 3a chronic kidney disease, with long-term current use of insulin (HCC) ([facility]) Class 2 severe obesity due to excess calories with serious comorbidity and body mass index (BMI) of 35.0 to 35.9 in adult ([facility])- Primary Type 2 diabetes mellitus with diabetic polyneuropathy, with long-term current use of insulin ([facility]) Type 2 diabetes mellitus with stage 3a chronic kidney disease, with long-term current use of insulin (HCC) ([facility]) Long-term insulin use ([facility]) Benign essential hypertension ([facility])- Primary Essential hypertension, benign JARAD (generalized anxiety disorder) ([facility]) Generalized anxiety disorder Lumbar spondylosis Lumbosacral spondylosis without myelopathy Type 2 diabetes mellitus with diabetic polyneuropathy, with long-term current use of insulin ([facility]) Type 2 diabetes mellitus with stage 3b chronic kidney disease, with long-term current use of insulin (HCC) ([facility]) Left shoulder pain, unspecified chronicity- Primary S/P arthroscopy of left shoulder documented in this encounter [facility] HealthcareEvaluation [facility]* Diagnosis Type 2 diabetes mellitus with diabetic polyneuropathy, with long-term current use of insulin ([facility])- Primary Class 2 severe obesity due to excess calories with serious comorbidity and body mass index (BMI) of 35.0 to 35.9 in adult ([facility])- Primary Type 2 diabetes mellitus with diabetic polyneuropathy, with long-term current use of insulin ([facility]) Long-term insulin use ([facility]) Lumbar spondylosis- Primary Lumbosacral spondylosis without myelopathy Benign essential hypertension ([facility]) Essential hypertension, benign Bilateral leg edema Edema Class 2 severe obesity due to excess calories with serious comorbidity and body mass index (BMI) of 36.0 to 36.9 in adult ([facility])- Primary Type 2 diabetes mellitus with diabetic polyneuropathy, with long-term current use of insulin ([facility]) Benign essential hypertension ([facility])- Primary Essential hypertension, benign Lumbar spondylosis Lumbosacral spondylosis without myelopathy Bilateral leg edema Edema Type 2 diabetes mellitus with diabetic polyneuropathy, with long-term current use of insulin ([facility]) Hypercholesteremia ([facility]) Pure hypercholesterolemia Encounter for long-term (current) use of medications Encounter for long-term (current) use of other medications Obesity (BMI 30-39.9) Body mass index [BMI] 36.0-36.9, adult (Z68.36) JARAD (generalized anxiety disorder) ([facility])- Primary Generalized anxiety disorder Benign essential hypertension ([facility]) Essential hypertension, benign Class 2 severe obesity due to excess calories with serious comorbidity and body mass index (BMI) of 35.0 to 35.9 in adult ([facility])- Primary Type 2 diabetes mellitus with diabetic polyneuropathy, with long-term current use of insulin ([facility]) Long-term insulin use ([facility]) Benign essential hypertension ([facility])- Primary Essential hypertension, benign JARAD (generalized anxiety disorder) ([facility]) Generalized anxiety disorder Bilateral leg edema Edema Lumbar spondylosis Lumbosacral spondylosis without myelopathy Benign essential hypertension ([facility]/HCC)- Primary Essential hypertension, benign JARAD (generalized anxiety disorder) ([facility]) Generalized anxiety disorder Lumbar spondylosis Lumbosacral spondylosis without myelopathy Bilateral leg edema Edema Prostate cancer ([facility]) Malignant neoplasm of prostate Type 2 diabetes mellitus with hyperglycemia, with long-term current use of insulin ([facility]) Class 2 severe obesity due to excess calories with serious comorbidity and body mass index (BMI) of 35.0 to 35.9 in adult ([facility])- Primary Type 2 diabetes mellitus with hyperglycemia, with long-term current use of insulin ([facility]) Type 2 diabetes mellitus with diabetic polyneuropathy, with long-term current use of insulin ([facility]) Long-term insulin use ([facility]) Type 2 diabetes mellitus with stage 3a chronic kidney disease, with long-term current use of insulin ([facility]) ([facility]) Class 2 severe obesity due to excess calories with serious comorbidity and body mass index (BMI) of 35.0 to 35.9 in adult [place] [place] Primary Type 2 diabetes mellitus with diabetic polyneuropathy, with long-term current use of insulin ([facility]) Type 2 diabetes mellitus with stage 3a chronic kidney disease, with long-term current use of insulin ([facility]) [place] Long-term insulin use ([facility]) Benign essential hypertension ([facility])- Primary Essential hypertension, benign JARAD (generalized anxiety disorder) ([facility]) Generalized anxiety disorder Lumbar spondylosis Lumbosacral spondylosis without myelopathy Type 2 diabetes mellitus with diabetic polyneuropathy, with long-term current use of insulin ([facility]) Type 2 diabetes mellitus with stage 3b chronic kidney disease, with long-term current use of insulin ([facility]) ([facility]) S/P arthroscopy of left shoulder- Primary documented in this encounter [facility] HealthcareEvaluation note* Diagnosis Type 2 diabetes mellitus with diabetic polyneuropathy, with long-term current use of insulin ([facility])- Primary Class 2 severe obesity due to excess calories with serious comorbidity and body mass index (BMI) of 35.0 to 35.9 in adult ([facility])- Primary Type 2 diabetes mellitus with diabetic polyneuropathy, with long-term current use of insulin ([facility]) Long-term insulin use ([facility]) Lumbar spondylosis- Primary Lumbosacral spondylosis without myelopathy Benign essential hypertension ([facility]) Essential hypertension, benign Bilateral leg edema Edema Class 2 severe obesity due to excess calories with serious comorbidity and body mass index (BMI) of 36.0 to 36.9 in adult ([facility])- Primary Type 2 diabetes mellitus with diabetic polyneuropathy, with long-term current use of insulin ([facility]) Benign essential hypertension ([facility])- Primary Essential hypertension, benign Lumbar spondylosis Lumbosacral spondylosis without myelopathy Bilateral leg edema Edema Type 2 diabetes mellitus with diabetic polyneuropathy, with long-term current use of insulin ([facility]) Hypercholesteremia ([facility]) Pure hypercholesterolemia Encounter for long-term (current) use of medications Encounter for long-term (current) use of other medications Obesity (BMI 30-39.9) Body mass index [BMI] 36.0-36.9, adult (Z68.36) JARAD (generalized anxiety disorder) ([facility])- Primary Generalized anxiety disorder Benign essential hypertension ([facility]) Essential hypertension, benign Class 2 severe obesity due to excess calories with serious comorbidity and body mass index (BMI) of 35.0 to 35.9 in adult ([facility])- Primary Type 2 diabetes mellitus with diabetic polyneuropathy, with long-term current use of insulin ([facility]) Long-term insulin use ([facility]) Benign essential hypertension ([facility])- Primary Essential hypertension, benign JARAD (generalized anxiety disorder) ([facility]) Generalized anxiety disorder Bilateral leg edema Edema Lumbar spondylosis Lumbosacral spondylosis without myelopathy Benign essential hypertension ([facility])- Primary Essential hypertension, benign JARAD (generalized anxiety disorder) ([facility]) Generalized anxiety disorder Lumbar spondylosis Lumbosacral spondylosis without myelopathy Bilateral leg edema Edema Prostate cancer ([facility]) Malignant neoplasm of prostate Type 2 diabetes mellitus with hyperglycemia, with long-term current use of insulin ([facility]) Class 2 severe obesity due to excess calories with serious comorbidity and body mass index (BMI) of 35.0 to 35.9 in adult ([facility])- Primary Type 2 diabetes mellitus with hyperglycemia, with long-term current use of insulin ([facility]) Type 2 diabetes mellitus with diabetic polyneuropathy, with long-term current use of insulin ([facility]) Long-term insulin use ([facility]) Type 2 diabetes mellitus with stage 3a chronic kidney disease, with long-term current use of insulin (HCC) ([facility]) Class 2 severe obesity due to excess calories with serious comorbidity and body mass index (BMI) of 35.0 to 35.9 in adult ([facility])- Primary Type 2 diabetes mellitus with diabetic polyneuropathy, with long-term current use of insulin ([facility]) Type 2 diabetes mellitus with stage 3a chronic kidney disease, with long-term current use of insulin (HCC) ([facility]) Long-term insulin use ([facility]) Benign essential hypertension ([facility])- Primary Essential hypertension, benign JARAD (generalized anxiety disorder) ([facility]) Generalized anxiety disorder Lumbar spondylosis Lumbosacral spondylosis without myelopathy Type 2 diabetes mellitus with diabetic polyneuropathy, with long-term current use of insulin ([facility]) Type 2 diabetes mellitus with stage 3b chronic kidney disease, with long-term current use of insulin ([facility]) ([facility]) Class 2 severe obesity due to excess calories with serious comorbidity and body mass index (BMI) of 37.0 to 37.9 in adult ([facility])- Primary Type 2 diabetes mellitus with diabetic polyneuropathy, with long-term current use of insulin ([facility]) Type 2 diabetes mellitus with stage 3b chronic kidney disease, with long-term current use of insulin ([facility]) ([facility]) Type 2 diabetes mellitus with hyperglycemia, with long-term current use of insulin ([facility]) [facility] Diagnosis Obstructive sleep apnea syndrome- Primary Obstructive sleep apnea (adult) (pediatric) documented in this encounter [facility]* Diagnosis Obstructive sleep apnea syndrome Obstructive sleep apnea (adult) (pediatric) CSA (central sleep apnea) Unspecified sleep apnea documented in this encounter [facility]* Diagnosis Personal history of tobacco use, presenting hazards to health- Primary Obstructive sleep apnea syndrome Obstructive sleep apnea (adult) (pediatric) CSA (central sleep apnea) Unspecified sleep apnea documented in this encounter [facility]* Diagnosis Encounter for other preprocedural examination documented in this encounter [facility]* Diagnosis Obstructive sleep apnea syndrome- Primary Obstructive sleep apnea (adult) (pediatric) Personal history of tobacco use, presenting hazards to health documented in this encounter [facility]* Diagnosis Type 2 diabetes mellitus with diabetic polyneuropathy, with long-term current use of insulin ([facility])- Primary Class 2 severe obesity due to excess calories with serious comorbidity and body mass index (BMI) of 35.0 to 35.9 in adult ([facility] [place] Primary Type 2 diabetes mellitus with diabetic polyneuropathy, with long-term current use of insulin ([facility]) [facility] Lumbar spondylosis- Primary Lumbosacral spondylosis without myelopathy Benign essential hypertension ([facility]) Essential hypertension, benign Bilateral leg edema Edema Class 2 severe obesity due to excess calories with serious comorbidity and body mass index (BMI) of 36.0 to 36.9 in adult ([facility] [place] Primary Type 2 diabetes mellitus with diabetic polyneuropathy, with long-term current use of insulin [facility] Benign essential hypertension [facility] Primary Essential hypertension, benign Lumbar spondylosis Lumbosacral spondylosis without myelopathy Bilateral leg edema Edema Type 2 diabetes mellitus with diabetic polyneuropathy, with long-term current use of insulin [facility] Hypercholesteremia ([facility] [place] Pure hypercholesterolemia Encounter for long-term (current) use of medications Encounter for long-term (current) use of other medications Obesity (BMI 30-39.9) Body mass index [BMI] 36.0-36.9, adult (Z68.36) JARAD (generalized anxiety disorder) ([facility])- Primary Generalized anxiety disorder Benign essential hypertension ([facility]) Essential hypertension, benign Class 2 severe obesity due to excess calories with serious comorbidity and body mass index (BMI) of 35.0 to 35.9 in adult ([facility] [place] Primary Type 2 diabetes mellitus with diabetic polyneuropathy, with long-term current use of insulin [facility] Long-term [facility] use [facility] Benign essential hypertension ([facility])- Primary Essential hypertension, benign JARAD (generalized anxiety disorder) ([facility]) Generalized anxiety disorder Bilateral leg edema Edema Lumbar spondylosis Lumbosacral spondylosis without myelopathy Benign essential hypertension ([facility])- Primary Essential hypertension, benign JARAD (generalized anxiety disorder) ([facility]) Generalized anxiety disorder Lumbar spondylosis Lumbosacral spondylosis without myelopathy Bilateral leg edema Edema Prostate cancer ([facility]) Malignant neoplasm of prostate Type 2 diabetes mellitus with hyperglycemia, with long-term current use of insulin ([facility]) Class 2 severe obesity due to excess calories with serious comorbidity and body mass index (BMI) of 35.0 to 35.9 in adult ([facility])- Primary Type 2 diabetes mellitus with hyperglycemia, with long-term current use of insulin (CMS/HCC) Type 2 diabetes mellitus with diabetic polyneuropathy, with long-term current use of insulin (CMS/HCC) Long-term insulin use ([facility]) Type 2 diabetes mellitus with stage 3a chronic kidney disease, with long-term current use of insulin (HCC) ([facility]) Class 2 severe obesity due to excess calories with serious comorbidity and body mass index (BMI) of 35.0 to 35.9 in adult ([facility])- Primary Type 2 diabetes mellitus with diabetic polyneuropathy, with long-term current use of insulin ([facility]) Type 2 diabetes mellitus with stage 3a chronic kidney disease, with long-term current use of insulin (HCC) ([facility]) Long-term insulin use ([facility]) Benign essential hypertension ([facility])- Primary Essential hypertension, benign JARAD (generalized anxiety disorder) ([facility]) Generalized anxiety disorder Lumbar spondylosis Lumbosacral spondylosis without myelopathy Type 2 diabetes mellitus with diabetic polyneuropathy, with long-term current use of insulin ([facility]) Type 2 diabetes mellitus with stage 3b chronic kidney disease, with long-term current use of insulin (HCC) ([facility]) Class 2 severe obesity due to excess calories with serious comorbidity and body mass index (BMI) of 37.0 to 37.9 in adult ([facility])- Primary Type 2 diabetes mellitus with diabetic polyneuropathy, with long-term current use of insulin ([facility]) Type 2 diabetes mellitus with stage 3b chronic kidney disease, with long-term current use of insulin (HCC) ([facility]) Type 2 diabetes mellitus with hyperglycemia, with long-term current use of insulin ([facility]) Diabetic polyneuropathy associated with type 2 diabetes mellitus ([facility]/HCC)- Primary Encounter for long-term (current) use of insulin ([facility]) Encounter for long-term (current) use of insulin Chronic painful diabetic neuropathy ([facility]) 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 documented in this encounter [facility]* Diagnosis SOB (shortness of breath)- Primary Shortness of breath documented in this encounter [facility]* Diagnosis SOB (shortness of breath)- Primary Shortness of breath documented in this encounter [facility]* Diagnosis SOB (shortness of breath)- Primary Shortness of breath Personal history of tobacco use, presenting hazards to health Obstructive sleep apnea syndrome Obstructive sleep apnea (adult) (pediatric) documented in this encounter [facility]* Diagnosis Type 2 diabetes mellitus with diabetic polyneuropathy, with long-term current use of insulin (HCC)- Primary Class 2 severe obesity due to excess calories with serious comorbidity and body mass index (BMI) of 35.0 to 35.9 in adult ([facility])- Primary Type 2 diabetes mellitus with diabetic polyneuropathy, with long-term current use of insulin (HCC) Long-term insulin use ([facility]) Lumbar spondylosis- Primary Lumbosacral spondylosis without myelopathy Benign essential hypertension Essential hypertension, benign Bilateral leg edema Edema Class 2 severe obesity due to excess calories with serious comorbidity and body mass index (BMI) of 36.0 to 36.9 in adult ([facility])- Primary Type 2 diabetes mellitus with diabetic polyneuropathy, with long-term current use of insulin (HCC) Benign essential hypertension- Primary Essential hypertension, benign Lumbar spondylosis Lumbosacral spondylosis without myelopathy Bilateral leg edema Edema Type 2 diabetes mellitus with diabetic polyneuropathy, with long-term current use of insulin ([facility]) Hypercholesteremia Pure hypercholesterolemia Encounter for long-term (current) use of medications Encounter for long-term (current) use of other medications Obesity (BMI 30-39.9) Body mass index [BMI] 36.0-36.9, adult (Z68.36) JARAD (generalized anxiety disorder)- Primary Generalized anxiety disorder Benign essential hypertension Essential hypertension, benign Class 2 severe obesity due to excess calories with serious comorbidity and body mass index (BMI) of 35.0 to 35.9 in adult ([facility])- Primary Type 2 diabetes mellitus with diabetic polyneuropathy, with long-term current use of insulin (HCC) Long-term insulin use (HCC) Benign essential hypertension- Primary Essential hypertension, benign JARAD (generalized anxiety disorder) Generalized anxiety disorder Bilateral leg edema Edema Lumbar spondylosis Lumbosacral spondylosis without myelopathy Benign essential hypertension- Primary Essential hypertension, benign JARAD (generalized anxiety disorder) Generalized anxiety disorder Lumbar spondylosis Lumbosacral spondylosis without myelopathy Bilateral leg edema Edema Prostate cancer (HCC) Malignant neoplasm of prostate Type 2 diabetes mellitus with hyperglycemia, with long-term current use of insulin ([facility]) Class 2 severe obesity due to excess calories with serious comorbidity and body mass index (BMI) of 35.0 to 35.9 in adult [place] [place] Primary Type 2 diabetes mellitus with hyperglycemia, with long-term current use of insulin ([facility]) Type 2 diabetes mellitus with diabetic polyneuropathy, with long-term current use of insulin ([facility]) Long-term insulin use ([facility]) Type 2 diabetes mellitus with stage 3a chronic kidney disease, with long-term current use of insulin ([facility]) Class 2 severe obesity due to excess calories with serious comorbidity and body mass index (BMI) of 35.0 to 35.9 in adult [place] [place] Primary Type 2 diabetes mellitus with diabetic polyneuropathy, with long-term current use of insulin ([facility]) Type 2 diabetes mellitus with stage 3a chronic kidney disease, with long-term current use of insulin ([facility]) Long-term insulin use ([facility]) Benign essential hypertension- Primary Essential hypertension, benign JARAD (generalized anxiety disorder) Generalized anxiety disorder Lumbar spondylosis Lumbosacral spondylosis without myelopathy Type 2 diabetes mellitus with diabetic polyneuropathy, with long-term current use of insulin ([facility]) Type 2 diabetes mellitus with stage 3b chronic kidney disease, with long-term current use of insulin ([facility]) Class 2 severe obesity due to excess calories with serious comorbidity and body mass index (BMI) of 37.0 to 37.9 in adult ([facility] Primary Type 2 diabetes mellitus with diabetic polyneuropathy, with long-term current use of insulin ([facility]) Type 2 diabetes mellitus with stage 3b chronic kidney disease, with long-term current use of insulin ([facility]) Type 2 diabetes mellitus with hyperglycemia, with long-term current use of insulin ([facility]) Type 2 diabetes mellitus with hyperglycemia, with long-term current use of insulin ([facility])- Primary Primary hypertension Unspecified essential hypertension Insulin long-term use ([facility]) Encounter for long-term (current) use of insulin Hyperlipemia, mixed Mixed hyperlipidemia Encounter for dietary consultation Class 2 severe obesity due to excess calories with serious comorbidity and body mass index (BMI) of 38.0 to 38.9 in adult ([facility] Stage 3b chronic kidney disease [place] Type 2 diabetes mellitus with diabetic polyneuropathy, with long-term current use of insulin (HCC) documented in this encounter [facility] and physical note Author Kike Bernal [facility] July 24, 2022 1:05pm Note Date/Time July 24, 2022 1 :05pm [facility] [address] [place] [address] Gastroenterology H&P Signed Patient: Milad Seymour MR#: [id number] : 1955 Acct:[id number] Age/Sex: 66 / M Adm Date: 3 Loc: Room: Type: [facility] Attending Dr: Kike Bernal [...] signed by Kike Bernal MD> 07/24/22 1305 [facility] Work Phone: History and physical note Author Kike Bernal [facility] April 27, 2023 11:41am Note Date/Time April 27, 2023 11:41am [facility] [address] [place] [address] Gastroenterology H&P Signed Patient: Milad Seymour MR#: [id number] : 1955 Acct:[id number] Age/Sex: 67 / M Adm Date: 3 Loc: Room: Type: [facility] Attending Dr: Kike Bernal [...] signed by Kike Bernal MD> 04/27/[address] [facility] Work Phone: History general Narrative - Reported* [...] History none in the last year 20 [employer] Other Hospital course Narrative No data available for this section [facility] Discharge instructions Additional Instructions DISCHARGE [...] problems. -Follow up with PCP. -Office number [phone]. [facility] Work Phone: Hospital Discharge instructions No data available for this section [facility] Discharge instructions Additional Instructions DISCHARGE [...] NOT operate machinery such as power tools, [employer] mowers, snow blowers, sewing machines, etc. for [...] in the office as scheduled -Office number [phone]. [facility] Work Phone: InstructionsNot on filedocumented in this encounter [facility] filedocument[facility] in this encounter [facility] on filedocumented in this encounter [facility]ructionsNot on filedocumented in this encounter [facility]ructionsNot on filedocumented in this encounter [facility] note No data available for this section [facility] reason for referral (narrative)No reason for referral information [facility] Work Phone: Reason for visit Narrative* Consultation (Routine) - Authorized Specialty Diagnoses / Procedures Referred By Anabel salinas Referred To Contact Physical Therapy Diagnoses S/P arthroscopy of left shoulder Procedures ID OFFICE/OUTPATIENT [facility] Rebecca Bonner PA [address] [place] [address] Phone: tel: fax: Alma Berkowitz PT Referral ID Status Reason Start Date Expiration Date Visits Requested Visits Authorized [id number] Authorized Consult and Treat 05/13/2024 08/10/2024 12 12 [facility] Narrative* Consultation (Routine) - Closed Specialty Diagnoses / Procedures Referred By Anabel salinas Referred To Contact Physical Therapy Diagnoses S/P arthroscopy of left shoulder Procedures ID OFFICE/OUTPATIENT NEW [facility] Rebecca Bonner PA [address] [address] Phone: tel: fax: Alma Berkowitz PT Referral ID Status Reason Start Date Expiration Date V isits Requested Visits Authorized [id number] Closed Consult and Treat 05/13/2024 08/10/2024 12 12 [facility] HealthcareReason for visit Narrative* Rehabilitation - Outpatient (Routine) - Authorized Specialty Diagnoses / Procedures Referred By Contac t Referred To Contact Physical Therapy Diagnoses S/P arthroscopy of left shoulder Procedures ID THER PX 1/> AREAS EACH 15 MIN NEUROMUSC REEDUCA ID THERAPEUTIC PX 1/> AREAS EACH 15 MIN EXERCISES ID OFFICE/OUTPATIENT NEW HIGH MDM 60 MINUTES PHYS/OCC THERAPY SS Rebecca Dias PA [address] [address] Phone: tel: fax: Alma Berkowitz PT Referral ID Status Reason Start Date Expiration Date V isits Requested Visits Authorized [id number] Authorized 07/01/2024 09/28/2024 12 12 [facility] Healthcare Summary Purpose Family History Relationship Condition [...] more parameters with PAP titration Gregoria Ralph, BRAIDED RUG [employer] SERVICE [employer] [address] [facility], [address] [address] Referral ID Status Reason Start Date Expiration Date V isits Requested Visits Authorized [id number] Pending Review 08/15/2023 08/14/2024 1 1 Specialty Diagnoses / Procedures Referred By Contac t Referred To Contact Diagnoses Obstructive sleep apnea syndrome CSA (central sleep apnea) Procedures Echo complete W/O contrast Gregoria Ralph, BRAIDED RUG MA[employer] SERVICE MAN [address] [facility], [address] [place] [address] [facility] [address] [place] [address] Phone: [phone] Referral ID Status Reason Start Date Expiration Date V isits Requested Visits Authorized [id number] Authorized 08/15/2023 11/12/2023 1 1 Specialty Diagnoses / Procedures Referred By Contac t Referred To Contact Radiology Diagnoses Personal history of tobacco use, presenting hazards to health Procedures CT low dose lung screenin (3mo 6mo follow-up) Gregoria Ralph, BRAIDED RUG MA[employer] SERVICE MAN [address] [facility], [address] [place] [address] [facility] [address] [place] [address] Phone: [phone] Referral ID Status Reason Start Date Expiration Date V isits Requested Visits Authorized [id number] Authorized 08/16/2023 11/13/2023 1 1 Additional Source Comments (unrecognized sect ion and content) No Status Records FoundNo Status Records FoundNo Status Records FoundNo Status Records FoundNo Status Records FoundNo Status Records FoundNo Status Records FoundNo Status Records FoundNo Status Records FoundNo Status Records Found INFORMATION SOURCE (unrecogn ized section and content) DATE CREATED AUTHOR 08/06/2021 [facility] DATE CREATED AUTHOR AUTHOR'S ORGANIZ ATION 10/24/2022 [facility] DATE CREATED AUTHOR AUTHOR'S ORGANIZ ATION 12/15/2023 [facility] DATE CREATED AUTHOR AUTHOR'S ORGANIZ ATION 02/05/2024 [facility] DATE CREATED AUTHOR AUTHOR'S ORGANIZ ATION 08/01/2024 [facility] DATE CREATED AUTHOR AUTHOR'S ORGANIZ ATION 08/09/2024 [facility] DATE CREATED AUTHOR AUTHOR'S ORGANIZ ATION 10/28/2024 [facility] DATE CREATED AUTHOR AUTHOR'S ORGANIZ ATION 11/18/2024 [facility] DATE CREATED AUTHOR AUTHOR'S ORGANIZ ATION 12/05/2024 [facility] DATE CREATED AUTHOR AUTHOR'S ORGANIZ ATION 01/30/2025 [facility] dical Specialists EPIC Care Team (unrecognized sect [...] July 17, 2023 End: July 17, 2023 Primer [employer] Operator Relationship Specialty Start Date End Date Dank Campo MD [address] [place] [address] PCP - General Family Medicine 07/25/23 [employer] Operator Relationship Specialty Start Date End Date Dank Campo MD [address] [place] [address] PCP - General Family Medicine 07/25/23 Team [...] March 17, 2024 End: March 17, 2024 [employer] Operator Relationship Specialty Start Date End Date Dank Campo MD [address] [place] [address] PCP - General Family Medicine 08/17/23 [employer] Operator Relationship Specialty Start Date End Date Dank Campo MD [address] [place] [address] PCP - General Family Medicine 08/17/23 [employer] Operator Relationship Specialty Start Date End Date Dank Campo MD [address] [address] PCP - General Family Medicine 08/17/23 [employer] Operator Relationship Specialty Start Date End Date Dank Campo MD [address] [place] [address] PCP - General Family Medicine 08/17/23 [employer] Operator Relationship Specialty Start Date End Date Dank Campo MD [address] [place] [address] PCP - General Family Medicine 08/17/23 [employer] Operator Relationship Specialty Start Date End Date Dank Campo MD [address] [place] [address] PCP - General Family Medicine 08/17/23 [employer] Operator Relationship Specialty Start Date End Date Dank Campo MD [address] [place] [address] PCP - General Family Medicine 08/17/23 Team Status: Inactive Member Role Status Dates Dank Campo MD Primary Care Provider Active S tart: April 15, 2024 End: April 15, 2024 Rich Alvares APRN Attending Provider Active Start: April 15, 2024 End: April 15, 2024 [employer] Operator Relationship Specialty Start Date End Date Dank Campo MD [address] [place] [address] PCP - General Family Medicine 08/17/23 [employer] Operator Relationship Specialty Start Date End Date Dank Campo MD [address] [place] [address] PCP - General Family Medicine 08/17/23 Primer Press Operator Relationship Specialty Start Date End Date Dank Campo MD [address] [place] [address] PCP - General Family Medicine 08/17/23 [employer] Operator Relationship Specialty Start Date End Date Dank Campo MD [address] [place] [address] PCP - General Family Medicine 08/17/23 [employer] Press Operator Relationship Specialty Start Date End Date Dank Campo MD [address] [place] [address] PCP - General Family Medicine 08/17/23 Primer Press Operator Relationship Specialty Start Date End Date Dank Campo MD [address] [place] [address] PCP - General Family Medicine 08/17/23 Primer Press Operator Relationship Specialty Start Date End Date Dank Campo MD [address] [place] [address] PCP - General Family Medicine 08/17/23 Primer Press Operator Relationship Specialty Start Date End Date Dank Campo MD [address] [place] [address] PCP - General Family Medicine 08/17/23 Primer Press Operator Relationship Specialty Start Date End Date Dank Campo MD [address] [place] [address] PCP - General Family Medicine 08/17/23 Primer Press Operator Relationship Specialty Start Date End Date Dank Campo MD [address] [place] [address] PCP - General Family Medicine 08/17/23 Primer Press Operator Relationship Specialty Start Date End Date Dank Campo MD [address] [place] [address] PCP - General Family Medicine 08/17/23 Primer Press Operator Relationship Specialty Start Date End Date Dank Campo MD [address] [place] [address] PCP - General Family Medicine 08/17/23 Primer Press Operator Relationship Specialty Start Date End Date Dank Campo MD [address] [place] [address] PCP - General Family Medicine 08/17/23 Primer Press Operator Relationship Specialty Start Date End Date Dank Campo MD [address] [place] [address] PCP - General Family Medicine 08/17/23 Primer Press Operator Relationship Specialty Start Date End Date Dank Campo MD [address] [place] [place] [address] PCP - General Family Medicine 08/17/23 Primer Press Operator Relationship Specialty Start Date End Date Dank Campo MD [address] [place] [address] PCP - General Family Medicine 08/17/23 Primer Press Operator Relationship Specialty Start Date End Date Dank Campo MD [address] [place] [address] PCP - General Family Medicine 08/17/23 Primer Press Operator Relationship Specialty Start Date End Date Dank Campo MD [address] [place] [address] PCP - General Family Medicine 08/17/23 Primer Press Operator Relationship Specialty Start Date End Date Dank Campo MD [address] [place] [address] PCP - General Family Medicine 08/17/23 Primer Press Operator Relationship Specialty Start Date End Date Dank Campo MD [address] [place] [address] PCP - General Family Medicine 08/17/23 Primer Press Operator Relationship Specialty Start Date End Date Dank Campo MD [address] [place] [address] PCP - General Family Medicine 08/17/23 Primer Press Operator Relationship Specialty Start Date End Date Dank Campo MD [address] [place] [address] PCP - General Family Medicine 08/17/23 Primer Press Operator Relationship Specialty Start Date End Date Dank Campo MD [address] [place] [address] PCP - General Family Medicine 08/17/23 Primer Press Operator Relationship Specialty Start Date End Date Dank Campo MD [address] [place] [address] PCP - General Family Medicine 08/17/23 Primer Press Operator Relationship Specialty Start Date End Date Dank Campo MD [address] [place] [address] PCP - General Family Medicine 08/17/23 Primer Press Operator Relationship Specialty Start Date End Date Dank Campo MD [address] [place] [address] PCP - General Family Medicine 08/17/23 Primer [employer] Operator Relationship Specialty Start Date End Date Dank Campo MD [address] [place] [address] PCP - General Family Medicine 08/17/23 Primer Press Operator Relationship Specialty Start Date End Date Dank Campo MD [address] [place] [address] PCP - General Family Medicine 08/17/23 Primer Press Operator Relationship Specialty Start Date End Date Dank Campo MD [address] [place] [address] PCP - General Family Medicine 08/17/23 Primer [employer] Operator Relationship Specialty Start Date End Date Dank Campo MD [address] [place] [address] PCP - General Family Medicine 08/17/23 Primer [employer] Operator Relationship Specialty Start Date End Date Dank Campo MD [address] [place] [address] PCP - General Family Medicine 08/17/23 Team Status: Inactive Member Role Status Dates Dank Campo MD Primary Care Provider Active S tart: July 30, 2024 End: July 30, 2024 Rich Alvares APRN Attending Provider Active Start: July 30, 2024 End: July 30, 2024 [employer] Operator Relationship Specialty Start Date End Date Dank Campo MD [address] [place] [address] PCP - General Family Medicine 08/17/23 Primer [employer] Operator Relationship Specialty Start Date End Date Dank Campo MD [address] [place] [address] PCP - General Family Medicine 12/10/17 Primer [employer] Operator Relationship Specialty Start Date End Date Dank Campo MD [address] [place] [address] PCP - General Family Medicine 12/10/17 Primer Press Operator Relationship Specialty Start Date End Date Dank Campo MD [address] [place] [address] PCP - General Family Medicine 12/10/17 Primer [employer] Operator Relationship Specialty Start Date End Date Dank Campo MD [address] [place] [facility] [place] [address] PCP - General Family Medicine 12/10/17 Primer Press Operator Relationship Specialty Start Date End Date Dank Campo MD [address] [facility] [address] PCP - General Family Medicine 12/10/17 Primer Press Operator Relationship Specialty Start Date End Date Dank Campo MD [address] [facility] [address] PCP - General Family Medicine 12/10/17 Primer [employer] Operator Relationship Specialty Start Date End Date Dank Campo MD [address] [place] [facility] [place] [address] PCP - General Family Medicine 12/10/17 Primer Press Operator Relationship Specialty Start Date End Date Dank Campo MD [address] [place] [address] PCP - General Family Medicine 03/12/24 Primer [employer] Operator Relationship Specialty Start Date End Date Dank Campo MD PCP - General Family Medicine 12/10/17 [employer] Operator Relationship Specialty Start Date End Date Dank Campo MD PCP - General Family Medicine 12/10/17 Team Status: Inactive Member Role Status Dates Dank Campo MD Primary Care Provider Active S tart: 2024 End: 2024 Rich Alvares APRN Attending Provider Active Start: 2024 End: 2024 [employer] Operator Relationship Specialty Start Date End Date Dank Campo MD [address] [place] [address] PCP - General Family Medicine 08/17/23 Dank Campo MD [address] [place] [address] PCP - Sadia ARMSTRONG 06/18/24 [employer] Operator Relationship Specialty Start Date End Date Dank Campo MD PCP - General Family Medicine 03/12/24 Primer [employer] Operator Relationship Specialty Start Date End Date Dank Campo MD PCP - General Family Medicine 03/12/24 Primer [employer] Operator Relationship Specialty Start Date End Date Dank Campo MD PCP - General Family Medicine 03/12/24 Team Status: Inactive Member Role Status Dates Dank Campo MD Primary Care Provider Active S tart: December 23, 2024 End: December 23, 2024 Rich Alvares APRN Attending Provider Active Start: December 23, 2024 End: December 23, 2024 [employer] Operator Relationship Specialty Start Date End Date Dank Campo MD [address] [place] [address] PCP - General Family Medicine 08/17/23 Primer Press Operator Relationship Specialty Start Date End Date Dank Campo MD [address] [place] [address] PCP - General Family Medicine 08/17/23 Primer Press Operator Relationship Specialty Start Date End Date Dank Campo MD PCP - General Family Medicine 03/12/24 REASON FOR VISIT (unrecogniz ed section and [...] more parameters with PAP titration Gregoria Ralph, BRAIDED RUG MAKER[employer]AD [employer] SERVICE MAN [address] [facility], [address] [place] [address] Referral ID Status Reason Start Date Expiration Date Visits Re quested Visits Authorized [id number] Closed 08/15/2023 08/14/2024 1 1 Reason Comments Sleep Apnea DME: [facility] Specialty Diagnoses / Procedures Referred By Anabel salinas Referred To Contact Pulmonary Medicine / Sleep Medicine Diagnoses Obstructive sleep apnea syndrome Jyoti Roth, BRAIDED RUG MAK[employer]LE[employer] SERVICE MAN [address] [facility] [address] [place] [address] sp Pulm Sleep Med [address] [place] [address] [place] [address] Referral ID Status Reason Start Date Expiration Date Visits Requested Visits Authorized [id number] Pending Review Specialty Services Required 08/13/2023 08/12/2024 [...] back painCXR 10/27/24 Sleep Apnea DME: [facility] Reason Comments Diabetes NEW REF ONLY Specialty Diagnoses / Procedures Referred By Contac t Referred To Contact Endocrinology Diagnoses Type 2 diabetes mellitus with hyperglycemia, with long-term current use of insulin (HCC) Procedures ID OFFICE/OUTPATIENT NEW HIGH MDM 60 MINUTES Dank Campo MD [address] [place] [address] Phone: tel: fax: Deb Matthew MD [address] [place] [address] Phone: tel: fax: Referral ID Status Reason Start Date Expiration Date Visits Requested Visits Authorized [id number] Pending Review Specialty Services Required 12/02/2024 05/31/2025 1 1 Goals (unrecognized section and content) Goals may [...] BE BASED ON THE PRIMARY CLINICAL RECORDS. [facility] [employer] [facility]. provides no warranty or guarantee of the accuracy or completeness of information in this document.
[2025-02-03 08:52] LABS: Albumin Level 3.9 g/dL (3.4-5.0); Anion Gap 15.3; Blood Urea Nitrogen 19.0 mg/dL (7.0-18.0); Calcium 9.1 mg/dL (8.5-10.1); Carbon Dioxide 24.3 mmol/L (21.0-32.0); Chloride 102 mmol/L (98-107); Cholesterol 171 mg/dL (<=200); Estimated GFR (African America >60 (>=60 mL/min/1.73m^2); Estimated GFR (Non-African Ame >60 (>=60 mL/min/1.73m^2); Glucose 183 mg/dL (74-106); HDL Cholesterol 35 mg/dL (40-60); Potassium 4.6 mmol/L (3.5-5.1); Sodium 137 mmol/L (136-145); Triglycerides 188 mg/dL (<=150); VLDL CHOLESTEROL 37.6 mg/dL
[2025-02-03 08:53] LABS: Microalbum Creatinine Ratio Ur 19.3 mg/g (0.0-29.9)
== END 2025-02-03 07:41 | disposition home or self-care (01) ==
LOC: LAB 07:41
PROVIDERS: PCP Family Medicine; Visit Provider Internal Medicine
DX: E11.65 Type 2 diabetes mellitus with hyperglycemia (principal); Z79.4 Long term (current) use of insulin; Z85.46 Personal history of malignant neoplasm of prostate
CPT/HCPCS: 36415; 80061; 80069; 82043; 82306; 82570; 84153; 84681

== ENCOUNTER 2025-02-03 07:42 | Outpatient (OUT) | payer MEDICARE, SELFPAY ==
--- OUTSIDE RECORDS SUMMARY | 2025-01-28 11:10 | XMS_ITS | Encounter Summary ---
Author Organization [facility] Address [address] [place] [address] Care Team Providers Care Compensation And Benefits Analyst Name Role Phone Dank Bella MD Primary Care Provider [phone] Reason for Referral * Medications - Closed Specialty Diagnoses / Procedures Referred By Anabel [place] Referred To Contact Diagnoses Type 2 diabetes mellitus with hyperglycemia, with long-term current use of insulin (HCC) Deb Matthew MD [address] [place] [address] Phone: tel: fax: Referral ID Status Reason Start Date Expiration Date Visits Re quested Visits Authorized [id number] Closed 1 1 Reason for Visit * Reason Comments Diabetes NEW REF ONLY * Consultation (Routine) - Pending Review Specialty Diagnoses / Procedures Referred By Anabel salinas Referred To Contact Endocrinology Diagnoses Type 2 diabetes mellitus with hyperglycemia, with long-term current use of insulin (HCC) Procedures [facility] OFFICE/OUTPATIENT NEW HIGH MDM 60 MINUTES Dank Bella MD [address] [place] [address] Phone: tel: fax: Deb Matthew MD [address] [place] [address] Phone: tel: fax: Referral ID Status Reason Start Date Expiration Date Visits Requested Visits Authorized [id number] Pending Review Specialty Services Required 12/02/2024 05/31/2025 1 1 Encounter Details Date Type Department Care Team (Late st Contact Info) Description 01/28/2025 11:10 AM EDT [facility] Visit [facility] [place] [facility] [address] [place] [id number] Deb Matthew MD [address] [place] [address] Type 2 diabetes mellitus with hyperglycemia, with long-term current use of insulin (HCC) (Primary Dx); Primary hypertension ; Insulin long-term use (HCC); Hyperlipemia, mixed ; Encounter for dietary consultation; Class 2 severe obesity due to excess calories with serious comorbidity and body mass index (BMI) of 38.0 to 38.9 in adult ([facility]); Stage 3b chronic kidney disease ([facility]); Type 2 diabetes mellitus with diabetic polyneuropathy, with long-term current use of insulin (HCC) Social History Tobacco Use Types Packs/Day Years [...] often do you attend chur ch or islam services? Never 01/09/2023 Do you belong to [...] Recorded Patient Health Questionnaire-2 Score 0 07/31/2024 [facility] - Occupational Stress Questionnaire Answer Date [...] place to sleep or slept in a longterm (including now)? No 01/09/2023 Sex and Gender Information Value Date Recorded Sex Assigned at Not on file Legal Sex Male 6:42 PM EDT Gender Identity Not on file Sexual Orientation Not on file documented as of this encounter Last Filed Vital Signs Vital Sign Reading Time Taken Comments Blood Pressure 122/70 01/28/2025 11:20 AM EDT Pulse 75 01/28/2025 11:20 AM EDT Temperature - - Respiratory Rate 16 01/28/2025 11:20 AM EDT Oxygen Saturation 96% 01/28/2025 11:20 AM EDT Inhaled Oxygen Concentration - - Weight 117 kg (258 lb) 01/28/2025 11:20 AM EDT Height 174 cm (5' 8.5 ) 01/28/2025 11:20 AM EDT Body Mass Index 38.66 01/28/2025 11:20 AM EDT documented in this encounter Progress Notes * Deb Matthew MD - 01/28/2025 11:10 AM EDT Milad Sneed is a 69 y.o. male Dank Bella MD presents with chief complaint of Diabetes (NEW REF ONLY) HPI: 01/2025 History of Present Illness The patient is a new patient sent from Dr. Kamran Bella for uncontrolled diabetes. A1c in our office 9.7 and currently he is on Lantus 70 units and Humalog 18 units breakfast,18 units lunch, 35 unitssupper, and off his oral medication for DM2. His Ozempic 1 mg once weekly. He is not aware about his kidney function in April/2024, GFR 40 and LDL 86. Results Laboratory Studies A1c is 9.7 in our office. In April 2024, GFR was 40 and LDL was 86. SUBJECTIVE: MEDICATIONS: Current Outpatient Medications Medication Instructions amoxicillin (Amoxil) 875 MG tablet TAKE 1 TABLET BY MOUTH TWICE DAILY UNTIL GONE aspirin (ASPIRIN) 81 mg, Daily celecoxib (CELEBREX) 200 mg, Oral, 2 times daily Continuous Glucose Sensor (Dexcom G7 Sensor) misc USE DIRECTED to check BLOOD SUGAR *change EVERY TEN days * empagliflozin (JARDIANCE) 25 mg, Oral, Daily fluorometholone (FML) 0.1 % ophthalmic suspension instill 1 (ONE) DROP IN BOTH EYES FOUR TIMES DAILY FOR 7 DAYS then instill 1 (ONE) DROP IN BOTH EYES TWICE DAILY FOR 7 DAYS FLUoxetine (PROZAC) 40 mg, Oral, Daily gabapentin (NEURONTIN) 300 mg, 2 times daily glucose blood (Pintail Technologiesuch Ultra) test strip Fsbs bid insulin lispro (HUMALOG KWIKPEN) 30 Units, Subcutaneous, 3 times daily with meals insulin pen needle (Immunomedics Unifine Pentips) 31G x 5 mm misc USE DIRECTED FOUR TIMES DAILY Lancets (HealthPlan Data SolutionsTouch Delica Plus [id number]) misc lansoprazole (Prevacid) [address] capsule Lantus SoloStar 40 Units, Subcutaneous, 2 times daily lisinopril 10 mg, Oral, 2 times daily loperamide (Imodium) 2 MG capsule magnesium oxide (MAG-OX) 400 mg, Oral, Daily metoprolol succinate XL (TOPROL-XL) 50 mg, Oral, Daily Ozempic (2 MG/DOSE) 2 mg, Subcutaneous, Every 7 days simvastatin (ZOCOR) 40 mg, Oral, Nightly tildrakizumab (Ilumya) 100 MG/ML injection Inject under the skin tiZANidine (ZANAFLEX) 4 mg, Oral, 3 times daily PRN triamcinolone (Kenalog) 0.1 % cream ALLERGIES: No Known Allergies Past Medical History: Diagnosis Date Abnormal renal function Achalasia Anemia Anxiety 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 Diabetes mellitus (HCC) ETD (Eustachian tube dysfunction), right Headache Hyperlipemia Hyperlipidemia Hypertension Iron Infusions on going per [facility] , Low back pain Migraine Otitis externa Prostate cancer (HCC) 2018 radiation PVC (premature ventricular contraction) Right shoulder pain Rotator cuff tear, right 2019 Sleep apnea Past Surgical History: Procedure Laterality Date APPENDECTOMY 1971 CHOLECYSTECTOMY COLONOSCOPY COLONOSCOPY 2016 EGD GALLBLADDER SURGERY 03/2021 HEEL SPUR SURGERY Right 2011 [place] KNEE SURGERY x2 arthroscopy OTHER SURGICAL HISTORY 07/31/2017 RM and T-tube, Timmis OTHER SURGICAL HISTORY Right 07/2020 Right PCR ROTATOR CUFF REPAIR Bilateral [id number] Wendy Crowell ROTATOR CUFF REPAIR 04/2024 SHOULDER ARTHROSCOPY Left 04/25/2024 LT SHOULDER SCOPE- DR DUPREE SHOULDER ARTHROSCOPY W/ SUBACROMIAL DECOMPRESSION AND DISTAL CLAVICLE EXCISION Right 12/10/2017 TONSILLECTOMY REVIEW OF SYMPTOMS: 14 POINT OF SYSTEM REVIEWED AND NEGATIVE OBJECTIVE: Constitutional: Afebrile @ home; no weakness or night sweats SKIN: No change in skin color; no itching, rash or lesions; no hair loss; HEENT: No HAs or injury; no dizziness; No difficulty with vision; no eye pain, discharge or lesions; no hearing loss or difficulty; no nasal discharge, NECK: No pain, limitation of motion, lumps or swollen glands RESP: No cough, wheezing or difficulty breathing. No CP with breathing; CARDIO: No CP , SOB or fatigue, No edema, palpitations or dyspnea with exertion GI: No N/V/D or abd. pain; good appetite with no recent change. No heart burn, liver or gallbladderdisease; no rectal bleeding or pain : No urinary pain , frequency or odor. MUSCULOSKELETAL: No muscle pain or cramps; no extremity weakness.No joint pain, stiffness, swellingor limitation of movement NEUROLOGY: No H/O seizures, stroke or fainting. No weakness, tremors. Hematology: No bleeding problems or excessive bruising ENDOCRINE: No increase in hunger, thirst or urination; admits compliance to medical management plan Feet: numbness tingling yes , ulcers or skin break no Lab Results Component Value Date HGBA1C 9.7 01/28/2025 HGBA1C 9.4 07/31/2024 HGBA1C 7.9 04/29/2024 Lab Results Component Value Date GLU 294 01/28/2025 GLU 203 (H) 04/18/2024 GLU 210 (H) 03/18/2024 GLU 210 (H) 03/18/2024 Visit Vitals BP 122/70 Pulse 75 Resp 16 Ht 5' 8.5 Wt 258 lb SpO2 96% BMI 38.66 kg/m?? Smoking Status Former BSA 2.38 m?? ASSESSMENT AND PLAN: Assessment/Plan Diagnoses and all orders for this visit: Type 2 diabetes mellitus with hyperglycemia, with long-term current use of insulin ([facility]) - POCT glucose manually resulted - POCT glycosylated hemoglobin (Hb A1C) docked device - Ambulatory referral to Endocrinology - insulin glargine (Lantus SoloStar) 100 UNIT/ML pen; Inject 40 Units under the skin in the morningand 40 Units before bedtime. - insulin lispro (HumaLOG KWIKPEN) 100 UNIT/ML injection; Inject 30 Units under the skin in the morning and 30 Units at noon and 30 Units in the evening. Inject with meals. - Semaglutide, 2 MG/DOSE, (Ozempic, 2 MG/DOSE,) 8 MG/3ML solution pen-injector; Inject 2 mg under the skin every 7 (seven) days - empagliflozin (Jardiance) 25 MG; Take 1 tablet (25 mg) by mouth Daily - C-peptide; Future - Vitamin D 25 hydroxy Total; Future - Microalbumin / creatinine urine ratio; Future - Lipid panel; Future - Renal function panel; Future Primary hypertension Insulin long-term use ([facility]) Hyperlipemia, mixed Encounter for dietary consultation Class 2 severe obesity due to excess calories with serious comorbidity and body mass index (BMI) of38.0 to 38.9 in adult ([facility]) Diet and exercise reviewed with the patient Stage 3b chronic kidney disease ([facility]) Type 2 diabetes mellitus with diabetic polyneuropathy, with long-term current use of insulin ([facility]) Assessment & Plan 1. Uncontrolled diabetes: - A1c level is 9.7. Currently on Lantus 70 units and Humalog 18 units breakfast, 18 units lunch, 35units supper, and Ozempic 1 mg once weekly. - Lantus dosage adjusted to 40 units twice daily. Humalog changed to 20 units for small meals, 25 units for medium meals, and 30 units for large meals plus scale #2 instructions. Ozempic increased to2 mg once weekly. Jardiance sample given for 10 mg for 4 weeks, prescription sent for 25 mg once daily. 2. Hypertension: - Continue with lisinopril and metoprolol. 3. Hypogonadism: - Plan to see urologist and might start testosterone treatment soon. Follow up in about 3 months (around 04/30/2025). documented in this encounter Plan of Treatment Upcoming Encounters Date Type Department Care Team (Late st Contact Info) Description 04/29/2025 11:10 AM EST Office Visit [facility] [place] [facility] [address] [place] [address] Deb Matthew MD [address] [place] [address] Scheduled Orders Name Type Priority Associated Diagnoses Orde r Schedule C-peptide Lab Routine Type 2 diabetes mellitus with hyperglycemia, with long-term current use of insulin (HCC) Expected: 01/28/2025 (Approximate), Expires: 01/28/2026 Vitamin D 25 hydroxy Total Lab Routine Type 2 diabetes mellitus with hyperglycemia, with long-term current use of insulin (HCC) Expected: 01/28/2025 (Approximate), Expires: 01/28/2026 Microalbumin / creatinine urine ratio Lab Routine Type 2 diabetes mellitus with hyperglycemia, with long-term current use of insulin (HCC) Expected: 01/28/2025 (Approximate), Expires: 01/28/2026 Lipid panel Lab Routine Type 2 diabetes mellitus with hyperglycemia, with long-term current use of insulin (HCC) Expected: 01/28/2025 (Approximate), Expires: 01/28/2026 Renal function panel Lab Routine Type 2 diabetes mellitus with hyperglycemia, with long-term current use of insulin (HCC) Expected: 01/28/2025 (Approximate), Expires: 01/28/2026 documented as of this encounter Procedures Procedure Name Priority Date/Time Associated Diagnosis Comments POCT GLYCOSYLATED HEMOGLOBIN (HGB A1C) Routine 01/28/2025 11:22 AM EDT Type 2 diabetes mellitus with hyperglycemia, with long-term current use of insulin ([facility]) POCT GLUCOSE Routine 01/28/2025 11:22 AM EDT Type 2 diabetes mellitus with hyperglycemia, with long-term current use of insulin (HCC) documented in this encounter Results * POCT glycosylated hemoglobin (Hb A1C) docked device (01/28/2025 11:22 AM EDT) Hemoglobin A1C 9.7 Blood Venous blood specimen / Unknown 01/28/2025 11:22 AM EDT Deb Matthew MD POINT OF CARE TEST ENTER/EDIT ORDERABLES Final Result * POCT glucose manually resulted (01/28/2025 11:22 AM EDT) Glucose Blood, POC 294 mg/dL Blood Capillary blood specimen / Unknown 01/28/2025 11:22 AM EDT Deb Matthew MD POINT OF CARE TEST ENTER/EDIT ORDERABLES Final Result documented in this encounter Visit Diagnoses Diagnosis Type 2 diabetes mellitus with hyperglycemia, with long-term current use of insulin (HCC)- Primary Primary hypertension Unspecified essential hypertension Insulin long-term use (HCC) Encounter for long-term (current) use of insulin Hyperlipemia, mixed Mixed hyperlipidemia Encounter for dietary consultation Class 2 severe obesity due to excess calories with serious comorbidity and body mass index (BMI) of 38.0 to 38.9 in adult ([facility]) Stage 3b chronic kidney disease ([facility]) Type 2 diabetes mellitus with diabetic polyneuropathy, with long-term current use of insulin (HCC) documented in this encounter Care Teams Compensation And Benefits Analyst Relationship Specialty Start Date End Date Dank Bella MD [address] [place] [address] PCP - General Family Medicine 08/17/23 documented as of this encounter
--- OUTSIDE RECORDS SUMMARY | 2025-02-03 07:45 | XMS_ITS | Encounter Summary ---
Author Organization [facility] Address [address] [place] [address] Care Team Providers Care Furnace Liner Name Role Phone Dank Bella MD Primary Care Provider [phone] Dank Bella MD Unavailable Encounter Details Date Type Department Care Team (Late st Contact Info) Description 08/20/2023 External Result Encounter [facility] External Department Unsolicited Dank Bella MD [address] [place] [id number] Social History Tobacco Use Types Packs/Day Years [...] often do you attend chur ch or jainism services? Never 01/09/2023 Do you belong to any clubs o r organizations such as orthodoxy groups, unions, fraternal or athletic groups, or [...] Recorded Patient Health Questionnaire-2 Score 0 01/16/2023 [facility] Occupat ional Health - Occupational [...] place to sleep or slept in a correction (including now)? No 01/09/2023 Sex and Gender Information Value Date Recorded Sex Assigned at Not on file Legal Sex Male 6:42 PM EDT Gender Identity Not on file Sexual Orientation Not on file documented as of this encounter Plan of Treatment Upcoming Encounters Date Type Department Care Team (Late st Contact Info) Description 04/29/2025 11:10 AM EST Office Visit [facility] [address] [place] [address] Deb Matthew MD [address] [place] [address] documented as of this encounter Procedures Procedure Name Priority Date/Time Associated Diagnosis Comments MR LUMBAR SPINE WO CONTRAST 08/20/2023 12:50 PM EST documented in this encounter Results * MR lumbar spine wo contrast (08/20/2023 12:50 PM EST) Anatomical Region Laterality Modality Spine, L-spine Magnetic Resonan ce 08/20/2023 12:5 0 PM EST Impressions 08/20/2023 1:05 PM EST Multilevel discovertebral degenerative changes. Mild central canal narrowing. The neural foraminal narrowing as above. Pre-MRI plain film assessment: 2 views lumbar spine extensive lower lumbar facet degeneration. Mild multilevel spondylosis with endplate spurring. No compression fracture. No significant listhesis. IMPRESSION: Degenerative change. Impression dictated by: Tom Chanel M.D.08/20/2023 1:02 PM Dictation Location: [place] [address] Transcribed By: [facility] 08/20/23 1302 Dictated By: Tom Chanel DO 08/20/23 1250 Signed By: <Electronically signed by Tom Chanel DO in OV> 08/20/23 1302 Narrative 08/20/2023 1:05 PM EST [facility] [place] [address] [place] [address] MRI Report Signed Patient: Milad Sneed MR#: [id number] : 1955 Acct:[id number] Age/Sex: 67 / M ADM Date: 08/20/23 Loc: MD Room: Type: [facility] Attending Dr: Dank Bella MD Copies to: Dank Bella MD Ordering Provider: Dank Bella MD Date of Service: 08/20/23 MR/MR lumbar spine wo con: [id number] ([id number]) XR/XR pre/post mri xray: PRE LUMBAR MRI [...] neural foramen MR/MR lumbar spine wo con Procedure Note Radiology, Radiologist, - 08/21/2023 [facility] [place] [address] [place] [address] MRI Report Signed Patient: Milad SneedMR#: [id number] : [id number]:[id number] Age/Sex: 67 / MADM Date: 08/20/23 Loc: MD Room:Type: [facility] Attending Dr: Dank Bella MD Copies to: Dank Bella MD Ordering Provider: Dank Bella MD Date of Service: 08/20/23 MR/MR lumbar spine wo con: [id number] ([id number]) XR/XR pre/post mri xray: PRE LUMBAR MRI Lumbar Spine withoutcontrast TECHNIQUE: Multiplanar T1 and T2-weighted imaging of lumbar spine obtainedwithout contrast. HISTORY: Lumbar pain. No injury COMPARISON: None The last fully segmented vertebral pair is operationally defined as L5/S1. POST SURGERY CHANGES: None BONE MARROW INFILTRATION: None BONE MARROW EDEMA: None BONY ALIGNMENT: Adequate bony alignment identified. SPINAL CANAL: No significant central canal narrowing. LUMBAR FRACTURE: None BONY LESIONS: 11 mm T1 and T2 bright round lesion of the LEFT posteriorportion of the L2 vertebral body identified. KIDNEYS: No hydronephrosis is identified. AORTA: No aortic aneurysm is seen. CONUS MEDULLARIS : The distal spinal cord is in adequate position withoutabnormality. Additional findings CONJOINED NERVE ROOT: None Lower thoracic level: Unremarkable L1-2 :Unremarkable L2-3: Mild spondylosis. No disc herniation. Patent central canal. Mildposterior element hypertrophy. Mild LEFT neural foraminal narrowing. Patent RIGHT neuralforamen L3-4: Mild spondylosis. Patent central canal. Posterior elementhypertrophy. Mild to moderate LEFT and mild RIGHT neural foraminal narrowing L4-5: Mild spondylosis. Diffuse disc bulge. Mild central canalstenosis. Posterior element hypertrophy. Mild to moderate LEFT and mild RIGHT neural foraminalnarrowing. L5-S1: Mild spondylosis. Diffuse disc bulge. Patent central canal.Posterior element hypertrophy. Patent neural foramen MR/MR lumbar spine wo con IMPRESSION: Multilevel discovertebral degenerative changes. Mild central canalnarrowing. The neural foraminal narrowing as above. Pre-MRI plain film assessment: 2 views lumbar spine extensive lowerlumbar facet degeneration. Mild multilevel spondylosis with endplate spurring. No compressionfracture. No significant listhesis. IMPRESSION: Degenerative change. Impression dictated by: Tom Chanel M.D.08/20/2023 1:02 PM Dictation Location: [place] [address] Transcribed By: [facility] 08/20/23 1302 Dictated By: Tom Chanel DO 08/20/23 1250 Signed By: <Electronically signed by Tom Chanel DO in OV> 08/20/23 1302 Dank Bella MD IMG MRI PROCEDURES Final Result documented in this encounter Visit Diagnoses Not on filedocumented in this encounter Care Teams Furnace Liner Relationship Specialty Start Date End Date Dank Bella MD [address] [place] [address] PCP - General Family Medicine 08/17/23 Dank Bella MD [address] [place] [address] PCP - Sadia ARMSTRONG 06/18/24 12/15/24 documented as of this encounter
--- OUTSIDE RECORDS SUMMARY | 2025-02-03 07:45 | XMS_ITS | Clinical Summary ---
Author Organization [facility] Address [address] [place] [address] Care Team Providers Care Driver Merchandiser Name Role Phone Dank Bella MD Primary Care Provider Allergies No known active allergies Medications ASPIRIN 81 MG chewable tablet Chew 81 mg Daily Active Lancets (OneTouch Delica Plus [id number]) misc 023 Active lansoprazole (Prevacid) [address] capsule Active fluorometholone (FML) 0.1 % ophthalmic suspension instill 1 (ONE) DROP IN BOTH EYES FOUR TIMES DAILY FOR 7 DAYS then instill 1 (ONE) DROP IN BOTH EYES TWICE DAILY FOR 7 DAYS 023 Active loperamide (Imodium) 2 MG capsule Active triamcinolone (Kenalog) 0.1 % cream 024 Active tildrakizumab (Ilumya) 100 MG/ML injection Inject under the skin 024 Active tiZANidine (Zanaflex) 4 MG tabletIndication s:Lumbar spondylosis Take 1 tablet (4 mg) by mouth 3 (three) times a day as needed for muscle spasms 60 tablet 3 024 Active Additional Information Patient not taking.Reported on 01/28/2025 FLUoxetine (PROzac) 40 MG capsuleIndicatio ns:JARAD (generalized anxiety disorder) Take 1 capsule (40 mg) by mouth Daily 90 capsule 3 024 Active Continuous Glucose Sensor (Dexcom G7 Sensor) miscIndications: Type 2 diabetes mellitus with diabetic polyneuropathy, with long-term current use of insulin ([facility]) USE DIRECTED to check BLOOD SUGAR *change EVERY TEN days * 9 each 3 024 Active amoxicillin (Amoxil) 875 MG tablet TAKE 1 TABLET BY MOUTH TWICE DAILY UNTIL GONE 025 Active gabapentin (Neurontin) 300 MG capsule Take 300 mg by mouth in the morning and 300 mg before bedtime. 025 Active metoprolol succinate XL (Toprol-XL) 50 MG 24 hr tabletIndication s:Ventricular premature depolarization TAKE 1 TABLET BY MOUTH DAILY 30 tablet 5 025 Active celecoxib (CeleBREX) 200 MG capsuleIndicatio ns:Lumbago with sciatica, right side Take 1 capsule (200 mg) by mouth in the morning and 1 capsule (200 mg) before bedtime. 60 capsule 025 Active lisinopril 10 MG tabletIndication s:Essential (primary) hypertension TAKE 1 TABLET BY MOUTH TWICE DAILY 60 tablet 025 Active simvastatin (Zocor) 40 MG tabletIndication s:Hyperlipidemia , unspecified TAKE 1 TABLET BY MOUTH AT BEDTIME 30 tablet 025 Active glucose blood (TestQuestTouch Ultra) test stripIndications :Type 2 diabetes mellitus with diabetic polyneuropathy, with long-term current use of insulin ([facility]) Fsbs bid 200 each 3 025 Active magnesium oxide (Mag-Ox) 400 (240 Mg) MG tabletIndication s:Hypomagnesemia TAKE 1 TABLET BY MOUTH DAILY 30 tablet 025 Active Semaglutide, 2 MG/DOSE, (Ozempic, 2 MG/DOSE,) 8 MG/3ML solution pen-injectorIndi cations:Type 2 diabetes mellitus with hyperglycemia, with long-term current use of insulin ([facility]) Inject 2 mg under the skin every 7 (seven) days 6 mL 025 2024 Active empagliflozin (Jardiance) 25 MGIndications:Ty pe 2 diabetes mellitus with hyperglycemia, with long-term current use of insulin ([facility]) Take 1 tablet (25 mg) by mouth Daily 90 tablet 025 2025 Active insulin lispro (HumaLOG) 100 UNIT/ML injectionIndicat ions:Type 2 diabetes mellitus with hyperglycemia, with long-term current use of insulin ([facility]) INJECT 30 UNITS SUBCUTANEOUSLY (UNDER THE SKIN) EVERY MORNING, at noon, & EVERY EVENING WITH MEALS 90 mL 1 025 Active insulin glargine (Lantus SoloStar) 100 UNIT/ML penIndications:T ype 2 diabetes mellitus with hyperglycemia, with long-term current use of insulin ([facility]) INJECT 40 UNITS SUBCUTANEOUSLY (UNDER THE SKIN) EVERY MORNING & BEFORE bedtime 80 mL 1 025 Active insulin pen needle (Drug Hawkeye Unifine Pentips) 31G x 5 mm miscIndications: Type 2 diabetes mellitus with hyperglycemia, without long-term current use of insulin ([facility]) USE DIRECTED FOUR TIMES DAILY 100 each 5 025 Active semaglutide (Ozempic, 1 MG/DOSE,) 4 MG/3ML solution pen-injectorIndi cations:Type 2 diabetes mellitus with diabetic polyneuropathy, with long-term current use of insulin ([facility]) Inject 1 mg under the skin 1 (one) time per week 9 mL 3 024 2024 Discontinued(D ose adjustment) magnesium oxide (Mag-Ox) 400 (240 Mg) MG tabletIndication s:Hypomagnesemia TAKE 1 TABLET BY MOUTH DAILY 30 tablet 5 025 2024 Discontinued insulin lispro (HumaLOG) 100 UNIT/ML injectionIndicat ions:Type 2 diabetes mellitus with diabetic polyneuropathy, with long-term current use of insulin ([facility]) INJECT 18 UNITS BREAKFAST/LUNCH, 35 units DINNER PLUS CORRECTIONS OF 1:30 > 150MG/DL ( MAX 100 UNITS A DAY) 90 mL 3 025 2024 Discontinued(D ose adjustment) insulin pen needle (Drug Hawkeye Unifine Pentips) 31G x 5 mm miscIndications: Type 2 diabetes mellitus with hyperglycemia, without long-term current use of insulin (HCC) USE DIRECTED FOUR TIMES DAILY 100 each 3 025 2024 Discontinued insulin glargine (Lantus SoloStar) 100 UNIT/ML penIndications:T ype 2 diabetes mellitus with diabetic polyneuropathy, with long-term current use of insulin ([facility]) INJECT 70 UNITS SUBCUTANEOUSLY AT BEDTIME 60 mL 3 025 2024 Discontinued(D ose adjustment) insulin pen needle ([employer] Unijoel Pentips) 31G x 5 mm miscIndications: Type 2 diabetes mellitus with hyperglycemia, without long-term current use of insulin (HCC) USE DIRECTED FOUR TIMES DAILY 100 each 3 025 2024 Discontinued(R eorder) insulin glargine (Lantus SoloStar) 100 UNIT/ML penIndications:T ype 2 diabetes mellitus with hyperglycemia, with long-term current use of insulin ([facility]) Inject 40 Units under the skin in the morning and 40 Units before bedtime. 72 mL 1 025 2024 Discontinued insulin lispro (HumaLOG KWIKPEN) 100 UNIT/ML injectionIndicat ions:Type 2 diabetes mellitus with hyperglycemia, with long-term current use of insulin ([facility]) Inject 30 Units under the skin in the morning and 30 Units at noon and 30 Units in the evening. Inject with meals. 81 mL 1 025 2024 Discontinued Active Problems Problem Noted [...] ago. This primarily affects his short-term memory. continuous churn buttermaker memory is intact, and the patient denies [...] Encounters Date Type Department Care Team Description 02/02/2025 Telephone [facility] [address] [place] [address] Deb Matthew MD Med Refill 01/28/2025 11:10 AM EDT Office Visit [facility] [address] [place] [address] Deb Matthew MD Type 2 diabetes mellitus with hyperglycemia, with long-term current use of insulin (HCC) (Primary Dx); Primary hypertension ; Insulin long-term use (HCC); Hyperlipemia, mixed ; Encounter for dietary consultation; Class 2 severe obesity due to excess calories with serious comorbidity and body mass index (BMI) of 38.0 to 38.9 in adult ([facility]-H[facility]); Stage 3b chronic kidney disease ([facility]); Type 2 diabetes mellitus with diabetic polyneuropathy, with long-term current use of insulin ([facility]) 01/28/2025 Refill [facility] [address] [place] [id number] Deb Matthew MD Type 2 diabetes mellitus with hyperglycemia, with long-term current use of insulin ([facility]) 01/28/2025 Bamboo flowsheet [facility] [address] [place] [phone] Deb Matthew MD 01/15/2025 Refill [facility] [address] [place] [id number] Dank Bella MD Hypomagnesemia 01/05/2025 Refill [facility] [address] [place] [phone] Dank Bella MD Type 2 diabetes mellitus with hyperglycemia, without long-term current use of insulin ([facility]) 12/24/2024 Refill [facility] [address] [place] [phone] Dank Bella MD Type 2 diabetes mellitus with diabetic polyneuropathy, with long-term current use of insulin ([facility]) 12/18/2024 Refill [facility] [address] [place] [address] Dank Bella MD Essential (primary) hypertension ; Hyperlipidemia, unspecified 12/02/2024 Telephone [facility] [address] [place] [address] Dank Bella MD 11/27/2024 Telephone [facility] [address] [place] [address] Alice Coreas, ION discharge; Care Coordination from Last 3 Months Immunizations Immunization Administration [...] week 01/09/2023 How often do you attend [facility] or buddhism services? Never 01/09/2023 Do you belong to any clubs o r organizations such as samaritan groups, unions, fraternal or athletic groups, or [...] Recorded Patient Health Questionnaire-2 Score 0 07/31/2024 [facility] Occupat ional Health - Occupational [...] Pulse 75 01/28/2025 11:20 AM EDT Temperature 36.6 C (97.9 F) 07/31/2024 10:32 AM EST Respiratory Rate 16 01/28/2025 11:20 AM EDT Oxygen Saturation 96% 01/28/2025 11:20 AM EDT Inhaled Oxygen Concentration - - Weight 117 kg (258 lb) 01/28/2025 11:20 AM EDT Height 174 cm (5' 8.5 ) 01/28/2025 11:20 AM EDT Body Mass Index 38.66 01/28/2025 11:20 AM EDT Plan of Treatment Upcoming Encounters Date Type Department Care Team (Late st Contact Info) Description 04/29/2025 11:10 AM EST Office Visit [facility] [address] [place] [address] Deb Matthew MD [address] [place] [address] Health Maintenance Due Date Last Done Comments CT Colonography 1955 FIT-DNA 1955 FIT 1955 FOBT 1955 Medicare Annual Wellness (AWV) 1955 Sigmoidoscopy 1955 Diabetes: Urine Protein Screening 09/03/2024 024 Influenza Vaccine (#1) 2025 4, 02/14/2023, 02/14/2023, Additional history exists Diabetes: Hemoglobin A1C 04/30/2025 025, 07/31/2024, 04/29/2024, Additional history exists Diabetes: Retinopathy Screening 10/21/2026 5, 08/28/2023 Colonoscopy 04/27/2033 04/27/2023, 02/11/2020 Colorectal Cancer Screening 04/27/2033 Pneumococcal Vaccine: 65+ Years Completed 02/22/2021, 02/16/2021, 05/30/2017, Additional history exists Procedures Procedure Name Priority Date/Time Associated Diagnosis Comments POCT GLYCOSYLATED HEMOGLOBIN (HGB A1C) Routine 01/28/2025 11:22 AM EDT Type 2 diabetes mellitus with hyperglycemia, with long-term current use of insulin (HCC) POCT GLUCOSE Routine 01/28/2025 11:22 AM EDT Type 2 diabetes mellitus with hyperglycemia, with long-term current use of insulin (HCC) DIABETIC RETINOPATHY SCREENING - OU - BOTH EYES Routine 10/21/2024 12:38 PM EDT from Last 3 Months or Most Recently Relevant to Health Maintenance Results * POCT glycosylated hemoglobin (Hb A1C) docked device (01/28/2025 11:22 AM EDT) Hemoglobin A1C 9.7 Blood Venous blood specimen / Unknown 01/28/2025 11:22 AM EDT us Deb Matthew MD POINT OF CARE TEST ENTER/EDIT ORDERABLES Final Result * POCT glucose manually resulted (01/28/2025 11:22 AM EDT) Glucose Blood, POC 294 mg/dL Blood Capillary blood specimen / Unknown 01/28/2025 11:22 AM EDT us Deb Matthew MD POINT OF CARE TEST ENTER/EDIT ORDERABLES Final Result * Diabetic Retinopathy Screening - OU - Both Eyes (10/21/2024 12:38 PM EDT) Anatomical Region Laterality Modality Head Other us [facility] Provider Unallocated MD [facility] F inal Result from Last 3 Months or Most Recently Relevant to Health Maintenance Insurance [employer] Care Teams Driver Merchandiser Relationship Specialty Start Date End Date Dank Bella MD [address] [place] [phone] PCP - General Family Medicine 08/17/23
--- OUTSIDE RECORDS SUMMARY | 2025-02-03 07:45 | XMS_ITS | Encounter Summary ---
Author Organization [facility] Address [address] [place] [address] Care Team Providers Care Feeder Loader Name Role Phone Dank Bella MD Primary Care Provider [phone] Dank Bella MD Unavailable Encounter Details Date Type Department Care Team (Late st Contact Info) Description 08/20/2023 Abstract [facility] [address] [place] [phone] Christofer Krishnamurthy [facility] [address] [place], [place] [phone] Social History Tobacco Use Types Packs/Day Years [...] How often do you attend chur or moravian services? Never 01/09/2023 Do you belong to any clubs o r organizations such as confucianism groups, unions, fraternal or athletic groups, or [...] Recorded Patient Health Questionnaire-2 Score 0 01/16/2023 [facility] of Occupat ional Health - Occupational [...] Description 04/29/2025 11:10 AM EST [facility] [address] [place] [address] Deb Matthew MD [address] [place] [address] documented as of this encounter Visit Diagnoses Not on filedocumented in this encounter Care Teams Feeder Loader Relationship Specialty Start Date End Date Dank Bella MD [address] [place] [address] PCP - General Family Medicine 08/17/23 Dank Bella MD [address] [place] [address] OMER Mccullough MA 06/18/24 12/15/24 documented as of this encounter
--- OUTSIDE RECORDS SUMMARY | 2025-02-03 07:45 | XMS_ITS | Encounter Summary ---
Author Organization [employer] Address [id number] [address] [place] [address] Care Team Providers Care Electrician Apprentice Powerhouse Name Role Phone Dank Bella MD Primary Care Provider [phone] Encounter Details Date Type Department Care Team (Late st Contact Info) Description 02/02/2025 Telephone [facility] [address] [place] [address] Aliza Escalera Social History Tobacco Use Types Packs/Day Years [...] encounter Miscellaneous Notes * Telephone Encounter - Aliza Escalera - 02/02/2025 1:24 PM EDT Images from the original note were not included. Pt into [facility] today, without an appointment. Wanted to try to get mask refit that KW had discussed with him at last appt in October. Pt currently using Airfit F20 M and states this mask has worked best for him of all previous masks tried. Leak is only occasionally mildly elevated so discussed trying th Airtouch F20 M. Informed can add mask liners and reviewed not to over-tighten mask, but instead, pull mask away from face for 3-5 seconds so can fill with air from PAP and form better seal with face. documented in this encounter Plan of Treatment Upcoming Encounters Date Type Department Care Team (Late st Contact Info) Description 05/25/2025 9:45 AM EST Office Visit [facility] [address] [place] [phone] Hanna Laguerre MD [address] [place], [place] [phone] documented as of this encounter Goals Goal [...] documented as of this encounter Care Teams Electrician Apprentice Powerhouse Relationship Specialty Start Date End Date Dank Bella MD PCP - General Family Medicine 03/12/24 documented as of this encounter
--- OUTSIDE RECORDS SUMMARY | 2025-02-03 07:45 | XMS_ITS | Encounter Summary ---
Author Organization [employer] Address [id number] [address] [place] [address] Care Team Providers Care General Teller Name Role Phone Dank Bella MD Primary Care Provider [phone] Encounter Details Date Type Department Care Team (Late st Contact Info) Description 03/12/2024 Telephone [facility] [address] [place] [address] Hanna Laguerre MD [address] [place] [address] Social History Tobacco Use Types Packs/Day Years [...] Office Visit [facility] [address] [place] [phone] Hanna Laguerre MD [address] [place], [place] [phone] documented as of this encounter Goals Goal [...] documented as of this encounter Care Teams General Teller Relationship Specialty Start Date End Date Dank Bella MD PCP - General Family Medicine 03/12/24 documented as of this encounter
--- OUTSIDE RECORDS SUMMARY | 2025-02-03 07:45 | XMS_ITS | Encounter Summary ---
Author Organization [facility] Address [address] [place] [address] Care Team Providers Care Sedimentationist Name Role Phone Dank Bella MD Primary Care Provider [phone] Reason for Visit * Reason Comments Med Change Request Encounter Details Date Type Department Care Team (Late st Contact Info) Description 01/28/2025 Refill [facility] [address] [place] [address] Deb Matthew MD [address] [place] [address] Type 2 diabetes mellitus with hyperglycemia, with [...] How often do you attend chur or mosque services? Never 01/09/2023 Do you belong to [...] Recorded Patient Health Questionnaire-2 Score 0 07/31/2024 [facility] Occupat ional Health - Occupational Stress [...] place to sleep or slept in a alf (including now)? No 01/09/2023 Sex and Gender Information Value Date Recorded Sex Assigned at Not on file Legal Sex Male 6:42 PM EDT Gender Identity Not on file Sexual Orientation Not on file documented as of this encounter Miscellaneous Notes * Telephone Encounter - Hattie Watkins LPN - 01/29/2025 11:54 AM EDT MEDICATION SENT TO PHARMACY. documented in this encounter Plan of Treatment Upcoming Encounters Date Type Department Care Team (Late st Contact Info) Description 04/29/2025 11:10 AM EST Office Visit [facility] [place] [facility] [address] [place] [address] Deb Matthew MD [address] [place] [address] documented as of this encounter Visit Diagnoses Diagnosis Type 2 diabetes mellitus with hyperglycemia, with long-term current use of insulin (HCC) documented in this encounter Care Teams Sedimentationist Relationship Specialty Start Date End Date Dank Bella MD [address] [place] [address] PCP - General Family Medicine 08/17/23 documented as of this encounter
--- OUTSIDE RECORDS SUMMARY | 2025-02-03 07:45 | XMS_ITS | Encounter Summary ---
Author Organization [facility] Address [address] [place] [address] Care Team Providers Care Psychotherapist Name Role Phone Dank Bella MD Primary Care Provider [phone] Ashli Joseph DO Primary Care Provider [phone] Dank Bella MD Primary Care Provider [phone] Dank Bella MD Unavailable Encounter Details Date Type Department Care Team (Late st Contact Info) Description 05/07/2023 [facility] [address] [facility] [address] [place] [address] Ashli Joseph DO [address] [facility] [address] [place] [address] Social History Tobacco Use Types [...] any clubs o r organizations such as congregation groups, unions, fraternal [...] Recorded Patient Health Questionnaire-2 Score 0 01/16/2023 [facility] [place] of Occupat ional Health - Occupational Stress [...] place to sleep or slept in a [place] health care facility (including now)? No 01/09/2023 Sex and Gender [...] EST Office Visit [facility] [address] [place] [address] Deb Matthew MD [address] [place] [address] documented as of this encounter Visit Diagnoses Not on filedocumented in this encounter Care Teams Psychotherapist Relationship Specialty Start Date End Date Dank Bella MD [address] [place] [address] PCP - General Family Medicine 07/25/23 08/12/23 Ashli Joseph DO [address] [place] [address] PCP - General Family Medicine 08/13/23 08/16/23 Dank Bella MD [address] [place] [address] PCP - General Family Medicine 08/17/23 Dank Bella MD [address] [place] [address] PCP - Sadia ARMSTRONG 06/18/24 12/15/24 documented as of this encounter
--- OUTSIDE RECORDS SUMMARY | 2025-02-03 07:45 | XMS_ITS | Encounter Summary ---
Author Organization [facility] Address [address] [place] [address] Care Team Providers Care Customer Account Administrator Name Role Phone Dank Bella MD Primary Care Provider [phone] Ashli Joseph DO Primary Care Provider [phone] Dank Bella MD Primary Care Provider [phone] Dank Bella MD Unavailable Encounter Details Date Type Department Care Team (Late st Contact Info) Description 07/24/2023 External Result Encounter [facility] External Department Unsolicited Fredy Boswell, LIQUID LOADER [address] [place], [place] [id number] Social History Tobacco Use Types Packs/Day Years [...] any clubs o r organizations such as mormon groups, unions, fraternal or athletic groups, or [...] Recorded Patient Health Questionnaire-2 Score 0 01/16/2023 [facility] of Occupat ional Health - Occupational [...] place to sleep or slept in a senior care (including now)? No 01/09/2023 Sex and Gender [...] [facility] [address] [place] [address] Deb Matthew MD [address] [place] [address] documented as of this encounter Procedures Procedure [...] Kamran Chavira M.D.07/24/2023 1:48 PM Dictation Location: [place] [address] Transcribed By: [facility] 07/24/23 1348 Dictated By: Kamran Chavira II, MD 07/24/23 1336 Signed By: <Electronically signed by Kamran Chavira II, MD in OV> 07/24/23 1348 Narrative 07/24/2023 1:51 PM EST [facility] [place] [address] [place] [address] CT Scan Report Signed Patient: Milad Sneed MR#: [id number] : 1955 Acct:[id number] Age/Sex: 67 / M ADM Date: 07/24/23 Loc: Room: Type: [facility] Attending Dr: Fredy Boswell LIQUID LOADER-C Copies to: Fredy Boswell SHIFT LEADER Ordering Provider: Fredy Boswell CNP Date of [...] con Procedure Note Radiology, Radiologist, - 07/24/2023 [facility] [place] [address] [place] [address] CT Scan Report Signed Patient: Milad SneedMR#: [id number] : 6Acct:[id number] Age/Sex: 67 / MADM Date: 07/24/23 Loc: XD Room:Type: [facility] Attending Dr: Fredy Boswell LIQUID LOADER-C Copies to: Fredy Boswell SHIFT LEADER Ordering Provider: Fredy Boswell SHIFT LEADER Date of Service: 07/24/23 CT/CT shoulder LT [...] Kamran Chavira M.D.07/24/2023 1:48 PM Dictation Location: [place] [address] Transcribed By: [facility] 07/24/23 1348 Dictated By: Kamran Chavira II, MD 07/24/23 1336 Signed By: <Electronically signed by Kamran Chavira II, MD inOV> 07/24/23 1348 Fredy Boswell [facility] CT PROCEDURES Final Result documented in this encounter Visit Diagnoses Not on filedocumented in this encounter Care Teams Customer Account Administrator Relationship Specialty Start Date End Date Dank Bella MD [address] [facility] [address] PCP - General Family Medicine 07/25/23 08/12/23 Ashli Joseph DO [address] [place] [address] PCP - General Family Medicine 08/13/23 08/16/23 Dank Bella MD [address] [place] [address] PCP - General Family Medicine 08/17/23 Dank Bella MD [address] [place] [address] PCP - Sadia ARMSTRONG 06/18/24 12/15/24 documented as of this encounter
--- OUTSIDE RECORDS SUMMARY | 2025-02-03 07:45 | XMS_ITS | Clinical Summary ---
Author Organization [employer] tem Address [id number] [address] [place] [address] Care Team Providers Care Cuff Setter Lockstitch Name Role Phone Dank Bella MD Primary Care Provider [phone] Allergies No known active allergies Medications lansoprazole [...] oxybutynin when last seen by Zach 2009 Encounters Date Type Department Care Team Description 02/02/2025 Telephone [facility] Pulmonary/Sleep Medicine [address] [place] [address] Bhavna Escaleraanne Annamarie 12/02/2024 12:45 PM EDT Telephone Visit [facility] [address] [place] [address] Hanna Laguerre MD SOB (shortness of breath) (Primary Dx); Personal history of tobacco use, presenting hazards to health; Obstructive sleep apnea syndrome 11/17/2024 10:58 AM EDT - 11/17/2024 11:59 PM EDT Hospital Encounter [facility] - Pulmonary Function [address] [place] [address] Hanna Laguerre MD SOB (shortness of breath) [...] Office Visit [facility] [address] [facility] [address] Hanna Laguerre MD [address] [facility] [address] [place], [place] [id number] Health Maintenance Due Date Last Done Comments [...] childrens support Medical Devices Implanted Type Area Airplane Flight Attendant Supervisor Device Identifier Shelf Expiration Date Model / Serial / Lot Swivelock 4.75 - Sna - [id number] Implanted:Qty: 2 on 12/10/2017 by Karsten Crowell, at [facility] Right: Shoulder Arthrex 07/18/2019 [id number] / NA / [id number] Incv/Swivelock 4.75 Use [id number] - Sna - [id number] Implanted:Qty: 2 on 07/19/2020 by Karsten Crowell, DO at [facility] Right: Shoulder Arthrex 03/17/2024 [id number] / NA / [id number] Procedures Procedure Name Priority Date/Time Associated Diagnosis [...] Abelardo Andres MD on 12/20/2018 1:44 PM us Carol Gillis MD [facility] US ORDERABLES Final Resul t from Last 3 Months or Most Recently Relevant to Health Maintenance Insurance [employer] MEDICARE [place] DEPARTMENT OF LABOR Advance Directives * Full Code (Latest Code Status on File) Date Activated Date Inactivated Comments 12/20/2018 5:21 AM 12/23/2018 4:36 PM Care Teams Cuff Setter Lockstitch Relationship Specialty Start Date End Date Dank Bella MD PCP - General Family Medicine 03/12/24
--- OUTSIDE RECORDS SUMMARY | 2025-02-03 07:45 | XMS_ITS | Encounter Summary ---
Author Organization [facility] Address [address] [place] [address] Care Team Providers Care Aesthetician Name Role Phone Dank Bella MD Primary Care Provider [phone] Source Comments In the event this information is protected by the Federal Confidentiality of Alcohol and Drug AbusePatient Records regulations: The Federal rules restrict any use of the information to criminally investigate or prosecute any alcohol or drug abuse patient.[facility] Encounter Details Date Type Department Care Team (Late st Contact Info) Description 09/15/2020 [place] [address] Provider, [facility] Medicare Coverage of Physical Exams [...] N ot on file 05/22/2020 Data from: https://www.neighborhoodatlas.medicine.[facility].edu/. Last address used for calculation Not [...] on filedocumented in this encounter Care Teams Aesthetician Relationship Specialty Start Date End Date Dank Bella MD [address] [place] [address] PCP - General Family Medicine 10/06/19 documented as of this encounter
--- OUTSIDE RECORDS SUMMARY | 2025-02-03 07:45 | XMS_ITS | Encounter Summary ---
Author Organization [facility] Address [address] [place] [address] Care Team Providers Care Playground Supervisor Name Role Phone Dank Bella MD Primary Care Provider [phone] Dank Bella MD Unavailable Encounter Details Date Type Department Care Team (Late st Contact Info) Description 10/09/2023 Orders Only [facility] [address] [place] [address] Dank Bella MD [address] [place] [address] Social History Tobacco Use Types [...] How often do you attend chur or mormon services? Never 01/09/2023 Do you belong to any clubs o r organizations such as mu-ism groups, unions, fraternal or athletic groups, or [...] Recorded Patient Health Questionnaire-2 Score 0 01/16/2023 [facility] of Occupat ional Health - [...] AM EST [facility] [address] [place] [address] Deb Matthew MD [address] [place] [address] documented as of this encounter Visit Diagnoses Not on filedocumented in this encounter Care Teams Playground Supervisor Relationship Specialty Start Date End Date Dank Bella MD [address] [place] [address] PCP - General Family Medicine 08/17/23 Dank Bella MD [address] [place] [address] OMER Mccullough MA 06/18/24 12/15/24 documented as of this encounter
--- OUTSIDE RECORDS SUMMARY | 2025-02-03 07:45 | XMS_ITS | Encounter Summary ---
Author Organization [facility] Address [address] [place] [address] Care Team Providers Care Assistant Restaurant General Manager Name Role Phone Dank Bella MD Primary Care Provider [phone] Ashli Joseph DO Primary Care Provider [phone] Dank Bella MD Primary Care Provider [phone] Dank Bella MD Unavailable Encounter Details Date Type Department Care Team (Late st Contact Info) Description 07/17/2023 [facility] [address] [place] [address] Dank Bella MD [address] [place] [address] Social History Tobacco Use Types Packs/Day Years [...] any clubs o r organizations such as zoroastrianism groups, unions, fraternal [...] Recorded Patient Health Questionnaire-2 Score 0 01/16/2023 [facility] [place] of Occupat ional Health - Occupational Stress [...] EST Office Visit [facility] [address] [place] [address] Deb Matthew MD [address] [place] [address] documented as of this encounter Visit Diagnoses Not on filedocumented in this encounter Care Teams Assistant Restaurant General Manager Relationship Specialty Start Date End Date Dank Bella MD [address] [place] [address] PCP - General Family Medicine 07/25/23 08/12/23 Ashli Joseph DO [address] [place] [address] PCP - General Family Medicine 08/13/23 08/16/23 Dank Bella MD [address] [place] [address] PCP - General Family Medicine 08/17/23 Dank Bella MD [address] [place] [address] PCP - Sadia ARMSTRONG 06/18/24 12/15/24 documented as of this encounter
--- OUTSIDE RECORDS SUMMARY | 2025-02-03 07:45 | XMS_ITS | Encounter Summary ---
Author Organization [facility] Address [address] [place] [address] Care Team Providers Care Staff Development Manager Name Role Phone Dank Bella MD Primary Care Provider [phone] Ashli Joseph DO Primary Care Provider [phone] Dank Bella MD Primary Care Provider [phone] Dank Bella MD Unavailable Encounter Details Date Type Department Care Team (Late st Contact Info) Description 12/11/2022 Abstract [facility] [address] [facility] [address] [place] [address] Ashli Joseph DO [address] [facility] [address] [place] [address] Social History Tobacco Use Types [...] [facility] [address] [place] [address] Deb Matthew MD [address] [place] [address] documented as of this encounter Visit Diagnoses Not on filedocumented in this encounter Care Teams Staff Development Manager Relationship Specialty Start Date End Date Dank Bella MD [address] [place] [address] PCP - General Family Medicine 07/25/23 08/12/23 Ashli Joseph DO [address] [place] [address] PCP - General Family Medicine 08/13/23 08/16/23 Dank Bella MD [address] [place] [address] PCP - General Family Medicine 08/17/23 Dank Bella MD [address] [place] [address] PCP - Sadia ARMSTRONG 06/18/24 12/15/24 documented as of this encounter
--- OUTSIDE RECORDS SUMMARY | 2025-02-03 07:45 | XMS_ITS | Clinical Summary ---
Author Organization [facility] Address [address] [place] [address] Care Team Providers Care Pigment Making Supervisor Name Role Phone Dank Bella MD Primary Care Provider [phone] Allergies No known active allergies Medications aspirin, [...] N ot on file 05/22/2020 Data from: https://www.neighborhoodatlas.medicine.[facility].edu/. Last address used for calculation Not [...] Pneumococcal Vaccine: 50+ (2 of 2 - PCV20 or PCV21) 05/30/2018 05/30/2017, 08/04/2013 Diabetes Screening 06/29/2023 06/29/2020, [...] - 8.0 g/dL 05/21/2020 2:00 PM EST [facility] Albumin 4.2 3.9 - 4.9 g/dL 05/21/2020 2:00 PM EST [facility] Calcium 9.4 8.5 - 10.2 mg/dL 05/21/2020 2:00 PM [facility] Bilirubin, Total 0.2 0.2 - 1.3 mg/dL 05/21/2020 2:00 PM [facility] Alkaline Phosphatase 97 38 - 113 U/L 05/21/2020 2:00 PM [facility] AST 12(L) 14 - 40 U/L 05/21/2020 2:00 PM [facility] Glucose 118(H) 74 - 99 mg/dL 05/21/2020 2:00 PM [facility] Comment: The [place] Diabetes Association (ADA) provides guidance for cutoff [...] Standards of Medical Care in Diabetes 2016, [place] Diabetes Association. Diabetes Care. 2016.39(Suppl 1). BUN 19 9 - 24 mg/dL 05/21/2020 2:00 PM [facility] Creatinine 0.76 0.73 - 1.22 mg/dL 05/21/2020 2:00 PM [facility] Sodium 142 136 - 144 mmol/L 05/21/2020 2:00 PM [facility] Potassium 4.1 3.7 - 5.1 mmol/L 05/21/2020 2:00 PM [facility] Chloride 108(H) 97 - 105 mmol/L 05/21/2020 2:00 PM [facility] CO2 26 22 - 30 mmol/L 05/21/2020 2:00 PM [facility] Anion Gap 8(L) 9 - 18 mmol/L 05/21/2020 2:00 PM [facility] ALT 13 10 - 54 U/L 05/21/2020 2:00 PM [facility] eGFR- >60 05/21/2020 2:00 PM EST [facility] eGFR-All Other Races >60 . 05/21/2020 2:00 PM EST [facility] Comment: eGFR (Estimated GFR) Units of measure: [...] EST Diane Flowers PA-C LABORATORY Final Result [facility] [address] [place] [address] [facility] [address] [place], [place] from Last 3 Months or Most Recently Relevant to Health Maintenance Insurance [facility] PPO AN[employer]M MEDICARE ADVANTAGE O Care Teams Pigment Making Supervisor Relationship Specialty Start Date End Date Dank Bella MD [address] [place] [address] PCP - General Family Medicine 10/06/19
--- OUTSIDE RECORDS SUMMARY | 2025-02-03 07:45 | XMS_ITS | Encounter Summary ---
Author Organization [facility] Address [address] [place] [address] Care Team Providers Care Patrol Mother Name Role Phone Dank Bella MD Primary Care Provider [phone] Reason for Visit * Reason Onset Date Comments Med Refill 02/02/2025 Encounter Details Date Type Department Care Team (Late st Contact Info) Description 02/02/2025 Telephone [facility] [address] [place] [address] Deb Matthew MD [address] [place] [address] Med Refill Social History Tobacco Use Types Packs/Day Years [...] How often do you attend chur or protestant services? Never 01/09/2023 Do you [...] Recorded Patient Health Questionnaire-2 Score 0 07/31/2024 [facility] [place] of Occupat ional Health - Occupational Stress [...] place to sleep or slept in a care home (including now)? No 01/09/2023 Sex and Gender Information Value Date Recorded Sex Assigned at Not on file Legal Sex Male 6:42 PM EDT Gender Identity Not on file Sexual Orientation Not on file documented as of this encounter Miscellaneous Notes * Telephone Encounter - Hattie Watkins LPN - 02/02/2025 3:33 PM EDT MEDICATION SENT TO PHARMACY. * Telephone Encounter - Dhaval Meehan - 02/02/2025 9:40 AM EDT Pt needs pen needles to [facility] please and thnak you! documented in this encounter Plan of Treatment Upcoming Encounters Date Type Department Care Team (Late st Contact Info) Description 04/29/2025 11:10 AM EST Office Visit [facility] [address] [place] [address] Deb Matthew MD [address] [place] [address] documented as of this encounter Visit Diagnoses Diagnosis Type 2 diabetes mellitus with hyperglycemia, without long-term current use of insulin (HCC) documented in this encounter Care Teams Patrol Mother Relationship Specialty Start Date End Date Dank Bella MD [address] [place] [address] PCP - General Family Medicine 08/17/23 documented as of this encounter
--- OUTSIDE RECORDS SUMMARY | 2025-02-03 07:45 | XMS_ITS | Encounter Summary ---
Author Organization [facility] Address [address] [place] [place] [address] Care Team Providers Care Chuck Wagon Cook Name Role Phone Dank Bella MD Primary Care Provider [phone] Encounter Details Date Type Department Care Team (Late st Contact Info) Description 01/28/2025 Bamboo flowsheet [facility] [address] [place] [address] Deb Matthew MD [address] [place] [address] Social History Tobacco Use Types Packs/Day Years [...] How often do you attend chur or advent services? Never 01/09/2023 Do you belong to any clubs o r organizations such as mosque groups, unions, fraternal or athletic groups, or [...] Recorded Patient Health Questionnaire-2 Score 0 07/31/2024 [facility] of Occupat ional Health - Occupational [...] [facility] [address] [place] [address] Deb Matthew MD [address] [place] [address] documented as of this encounter Visit Diagnoses Not on filedocumented in this encounter Care Teams Chuck Wagon Cook Relationship Specialty Start Date End Date Dank Bella MD [address] [place] [address] PCP - General Family Medicine 08/17/23 documented as of this encounter
--- OUTSIDE RECORDS SUMMARY | 2025-02-03 07:45 | XMS_ITS | Encounter Summary ---
Author Organization [facility] Address [address] [place] [address] Care Team Providers Care Manager Training Name Role Phone Dank Bella MD Primary Care Provider [phone] Source Comments In the event this information is protected by the Federal Confidentiality of Alcohol and Drug AbusePatient Records regulations: The Federal rules restrict any use of the information to criminally investigate or prosecute any alcohol or drug abuse patient.[facility] Encounter Details Date Type Department Care Team (Late st Contact Info) Description 07/31/2021 Patient Msg Radiation Oncology [address] [place] [address] [place] [address] Fawad Bansal MD [address] [place] [address] [place] [address] Appointment Cancellation Request Social History Tobacco Use [...] N ot on file 05/22/2020 Data from: https://www.neighborhoodatlas.medicine.[facility].edu/. Last address used for calculation Not on [...] on filedocumented in this encounter Care Teams Manager Training Relationship Specialty Start Date End Date Dank Bella MD [address] [place] [address] PCP - General Family Medicine 10/06/19 documented as of this encounter
--- OUTSIDE RECORDS SUMMARY | 2025-02-03 07:45 | XMS_ITS | Encounter Summary ---
Author Organization [facility] Address [address] [place] [address] Care Team Providers Care Donor Floor Technician Name Role Phone Dank Bella MD Primary Care Provider Dank Bella MD Unavailable Encounter Details Date Type Department Care Team (Late st Contact Info) Description 01/29/2024 Abstract [facility] [address] [place] [phone] Matthew Krishnamurthy DPM [address] [place], [place] [phone] Social History Tobacco Use Types Packs/Day Years [...] How often do you attend chur or temple services? Never 01/09/2023 Do you belong to any clubs o r organizations such as anabaptist groups, unions, fraternal or athletic groups, or [...] to sleep or slept in a senior living (including now)? No 01/09/2023 Sex and Gender [...] [facility] [address] [place] [address] Deb Matthew MD [address] [place] [address] documented as of this encounter Visit Diagnoses Not on filedocumented in this encounter Care Teams Donor Floor Technician Relationship Specialty Start Date End Date Dank Bella MD [address] [place] [address] PCP - General Family Medicine 08/17/23 Dank Bella MD [address] [place] [address] OMER Mccullough MA 06/18/24 12/15/24 documented as of this encounter
--- OUTSIDE RECORDS SUMMARY | 2025-02-03 07:45 | XMS_ITS | Encounter Summary ---
Author Organization [facility] Address [address] [place] [address] Care Team Providers Care Transformation Manager Name Role Phone Dank Bella MD Primary Care Provider [phone] Dank Bella MD Unavailable Encounter Details Date Type Department Care Team (Late st Contact Info) Description 10/21/2024 Orders Only [facility] [address] [place] [address] Unallocated, Noms Provider, [address] [place], [place] [address] Social History Tobacco Use Types Packs/Day Years [...] How often do you attend chur or latter day services? Never 01/09/2023 Do you belong to any clubs o r organizations such as quaker groups, unions, fraternal or athletic groups, or [...] Recorded Patient Health Questionnaire-2 Score 0 07/31/2024 [facility] Occupat ional Health - Occupational Stress [...] place to sleep or slept in a halfway (including now)? No 01/09/2023 Sex and Gender Information Value Date Recorded Sex Assigned at Not on file Legal Sex Male 6:42 PM EDT Gender Identity Not on file Sexual Orientation Not on file documented as of this encounter Plan of Treatment Upcoming Encounters Date Type Department Care Team (Late st Contact Info) Description 04/29/2025 11:10 AM EST Office Visit [facility] [address] [place] [address] Deb Matthew MD [address] [place] [address] documented as of this encounter Procedures Procedure [...] on filedocumented in this encounter Care Teams Transformation Manager Relationship Specialty Start Date End Date Dank Bella MD [address] [place] [address] PCP - General Family Medicine 08/17/23 Dank Bella MD [address] [place] [address] PCP - Sadia ARMSTRONG 06/18/24 12/15/24 documented as of this encounter
--- OUTSIDE RECORDS SUMMARY | 2025-02-03 07:45 | XMS_ITS | Encounter Summary ---
Author Organization [facility] Address [address] [place] [address] Care Team Providers Care Photo Producer Name Role Phone Dank Bella MD Primary Care Provider [phone] Dank Bella MD Unavailable Reason for Visit * Reason Onset Date Comments discharge 11/27/2024 Care Coordination 11/27/2024 Encounter Details Date Type Department Care Team (Late st Contact Info) Description 11/27/2024 Telephone [facility] [address] [facility] [address] [place] [address] Alice Coreas LPN discharge; Care Coordination Social History Tobacco Use Types Packs/Day Years [...] any clubs o r organizations such as anabaptism groups, unions, fraternal or athletic groups, or [...] Recorded Patient Health Questionnaire-2 Score 0 07/31/2024 [facility] Occupat ional Health - Occupational [...] encounter Miscellaneous Notes * Telephone Encounter - Gabrielle Brown - 02/02/2025 10:28 AM EDT Pt is requesting if it would be possible that if Dr. Cornelius had any information on getting his ozempic covered if she could let him know how she did this. He wasn't sure how she was getting it approved. He was hoping she could either let the patient know or forward this to his new doctor. * Telephone Encounter - Andree Alfonso RN - 11/27/2024 3:29 PM EDT Discharge letter sent via mail. Alerts placed in chart * Telephone Encounter - Alice Coreas LPN - 11/27/2024 11:17 AM EDT Sima Cornelius please discharge pt for no shows documented in this encounter Plan of Treatment Upcoming Encounters Date Type Department Care Team (Late st Contact Info) Description 04/29/2025 11:10 AM EST Office Visit [facility] [address] [place] [address] Deb Matthew MD [address] [place] [address] documented as of this encounter Visit Diagnoses Not on filedocumented in this encounter Care Teams Photo Producer Relationship Specialty Start Date End Date Dank Bella MD [address] [place] [address] PCP - General Family Medicine 08/17/23 Dank Bella MD [address] [place] [address] PCP - Sadia ARMSTRONG 06/18/24 12/15/24 documented as of this encounter
--- OUTSIDE RECORDS SUMMARY | 2025-02-03 07:45 | XMS_ITS | Encounter Summary ---
Author Organization [facility] Address [address] [place] [address] Care Team Providers Care Network Associate Name Role Phone Dank Bella MD Primary Care Provider [phone] Dank Bella MD Unavailable Encounter Details Date Type Department Care Team (Late st Contact Info) Description 11/22/2023 Abstract [facility] [address] [place] [phone] Matthew Krishnamurthy DPM [address] [place], [place] [phone] Social History Tobacco Use Types Packs/Day Years [...] How often do you attend chur or pentecostal services? Never 01/09/2023 Do you belong to any clubs o r organizations such as amish groups, unions, fraternal or athletic groups, or [...] Recorded Patient Health Questionnaire-2 Score 0 01/16/2023 [facility] Occupat ional Health - Occupational [...] [facility] [address] [place] [address] Deb Matthew MD [address] [place] [address] documented as of this encounter Visit Diagnoses Not on filedocumented in this encounter Care Teams Network Associate Relationship Specialty Start Date End Date Dank Bella MD [address] [place] [address] PCP - General Family Medicine 08/17/23 Dank Bella MD [address] [place] [address] OMER Mccullough MA 06/18/24 12/15/24 documented as of this encounter
--- OUTSIDE RECORDS SUMMARY | 2025-02-03 07:45 | XMS_ITS | Encounter Summary ---
Author Organization [facility] Address [address] [place] [address] Care Team Providers Care Tray Worker Name Role Phone Ashli Joseph DO Primary Care Provider [phone] Dank Bella MD Primary Care Provider [phone] Dank Bella MD Unavailable Encounter Details Date Type Department Care Team (Late st Contact Info) Description 08/13/2023 [facility] [address] [facility] [place] [address] Matthew Krishnamurthy DPM [address] [place], [place] [phone] Social History Tobacco Use Types Packs/Day Years [...] often do you attend chur ch or uatsdin services? Never 01/09/2023 Do you belong to any clubs o r organizations such as cheondoism groups, unions, fraternal or athletic groups, or [...] Recorded Patient Health Questionnaire-2 Score 0 01/16/2023 [facility] of Occupat ional Health - Occupational [...] place to sleep or slept in a prison (including now)? No 01/09/2023 Sex and Gender Information Value Date Recorded Sex Assigned at Not on file Legal Sex Male 6:42 PM EDT Gender Identity Not on file Sexual Orientation Not on file documented as of this encounter Plan of Treatment Upcoming Encounters Date Type Department Care Team (Late st Contact Info) Description 04/29/2025 11:10 AM EST Office Visit [facility] [place] [facility] [address] [place] [address] Deb Matthew MD [address] [place] [address] documented as of this encounter Visit Diagnoses Not on filedocumented in this encounter Care Teams Tray Worker Relationship Specialty Start Date End Date Ashli Joseph DO [address] [place] [address] PCP - General Family Medicine 08/13/23 08/16/23 Dank Bella MD [address] [place] [address] PCP - General Family Medicine 08/17/23 Dank Bella MD [address] [place] [address] PCP - Sadia ARMSTRONG 06/18/24 12/15/24 documented as of this encounter
--- OUTSIDE RECORDS SUMMARY | 2025-02-03 07:45 | XMS_ITS | Clinical Summary ---
Author Organization [facility] Address [address] [place] [address] Phone Care Team Providers Care Glue Bone Drier Name Role Phone Unavailable Primary Care Provider [...]
--- OUTSIDE RECORDS SUMMARY | 2025-02-03 07:45 | XMS_ITS | Encounter Summary ---
Author Organization [facility] Address [address] [place] [address] Care Team Providers Care Room Service Waiter Name Role Phone Dank Bella MD Primary Care Provider Dank Bella MD Unavailable Encounter Details Date Type Department Care Team (Late st Contact Info) Description 01/08/2024 Abstract [facility] [address] [place] [phone] Matthew Krishnamurthy DPM [address] [place], [place] [phone] Social History Tobacco Use Types Packs/Day Years [...] How often do you attend chur or christian services? Never 01/09/2023 Do you belong to any clubs o r organizations such as yarsanism groups, unions, fraternal or athletic groups, or [...] Recorded Patient Health Questionnaire-2 Score 0 01/16/2023 [facility] Occupat ional Health - [...] [facility] [address] [place] [address] Deb Matthew MD [address] [place] [address] documented as of this encounter Visit Diagnoses Not on filedocumented in this encounter Care Teams Room Service Waiter Relationship Specialty Start Date End Date Dank Bella MD [address] [place] [address] PCP - General Family Medicine 08/17/23 Dank Bella MD [address] [place] [address] OMER Mccullough MA 06/18/24 12/15/24 documented as of this encounter
--- OUTSIDE RECORDS SUMMARY | 2025-02-03 07:45 | XMS_ITS | Encounter Summary ---
Author Organization [facility] Address [address] [place] [address] Care Team Providers Care Music Promoter Name Role Phone Dank Bella MD Primary Care Provider [phone] Ashli Joseph DO Primary Care Provider [phone] Dank Bella MD Primary Care Provider [phone] Dank Bella MD Unavailable Encounter Details Date Type Department Care Team (Late st Contact Info) Description 07/24/2023 External Result Encounter [facility] External Department Unsolicited Fredy Boswell, ELECTROMEDICAL EQUIPMENT TECHNICIAN [address] [place], [place] [phone] Social History Tobacco Use Types Packs/Day Years [...] often do you attend chur ch or gnosticist services? Never 01/09/2023 Do you belong to any clubs o r organizations such as islam groups, unions, fraternal or athletic groups, or [...] Health Questionnaire-2 Score 0 01/16/2023 [facility] Occupat ional Health - Occupational [...] [facility] [address] [place] [address] Deb Matthew MD [address] [place] [address] documented as of this encounter Procedures Procedure [...] Kamran Chavira M.D.07/24/2023 12:39 PM Dictation Location: [place] [address] Transcribed By: [facility] 07/24/23 1239 Dictated By: Kamran Chavira II, MD 07/24/23 1231 Signed By: <Electronically signed by Kamran Chavira II, MD in OV> 07/24/23 1239 Narrative 07/24/2023 12:42 PM EST [facility] Main [place] [address] [place] [address] Fluoroscopy Report Signed Patient: Milad Sneed MR#: [id number] : 1955 Acct:[id number] Age/Sex: 67 / M ADM Date: 07/24/23 Loc: Room: Type: [facility] Attending Dr: Fredy Boswell ELECTROMEDICAL EQUIPMENT TECHNICIAN-C Copies to: Fredy Boswell PROGRESS DEVELOPER Ordering Provider: Fredy Boswell CNP Date of [...] - 07/24/2023 [facility] [place] [address] Fluoroscopy Report Signed Patient: Milad SenedMR#: [id number] : 6Acct:[id number] Age/Sex: 67 / MADM Date: 07/24/23 Loc: XD Room:Type: [facility] Attending Dr: Fredy Boswell ELECTROMEDICAL EQUIPMENT TECHNICIAN-C Copies to: Fredy Boswell CNP Ordering Provider: [...] Kamran Chavira M.D.07/24/2023 12:39 PM Dictation Location: [place] [address] Transcribed By: [facility] 07/24/23 1239 Dictated By: Kamran Chavira II, MD 07/24/23 1231 Signed By: <Electronically signed by Kamran Chavira II, MD inOV> 07/24/23 1239 Fredy Boswell ELECTROMEDICAL EQUIPMENT TECHNICIAN IMG IR PROCEDURES Final Result documented in this encounter Visit Diagnoses Not on filedocumented in this encounter Care Teams Music Promoter Relationship Specialty Start Date End Date Dank Bella MD [address] [place] [address] PCP - General Family Medicine 07/25/23 08/12/23 Ashli Joseph DO [address] [facility] [address] [place] [address] PCP - General Family Medicine 08/13/23 08/16/23 Dank Bella MD [address] [place] [address] PCP - General Family Medicine 08/17/23 Dank Bella MD [address] [place] [address] PCP - Sadia ARMSTRONG 06/18/24 12/15/24 documented as of this encounter
--- OUTSIDE RECORDS SUMMARY | 2025-02-03 07:45 | XMS_ITS | Clinical Summary ---
Author Organization [facility] Address [address] [place] [address] Care Team Providers Care Communications Equipment Operator Name Role Phone Unavailable Primary Care Provider [...]
--- OUTSIDE RECORDS SUMMARY | 2025-02-03 07:46 | XMS_ITS | Encounter Summary ---
Author Organization [facility] Address [address] [place] [address] Care Team Providers Care Systems Administrator Name Role Phone Dank Bella MD Primary Care Provider [phone] Dank Bella MD Unavailable Encounter Details Date [...] often do you attend chur ch or caodaism services? Never 01/09/2023 Do you belong to any clubs o r organizations such as sabianism groups, unions, fraternal or athletic groups, or [...] Recorded Patient Health Questionnaire-2 Score 0 04/29/2024 [facility] - Occupational Stress Questionnaire Answer Date [...] AM EST Office Visit [facility] [address] [place] [address] Deb Matthew MD [address] [place] [address] documented as of this encounter Procedures Procedure Name Priority Date/Time Associated Diagnosis Comments XR KNEE 4+ VIEWS BILATERAL 07/03/2024 10:40 AM EST documented in this encounter Results * XR knee 4+ views bilateral (07/03/2024 10:40 AM EST) Anatomical Region Laterality Modality Lower Extremities, Knee Bilateral [facility] 07/03/2024 10:4 0 AM EST Narrative 07/03/2024 10:42 AM EST The [address] [address] XRay Report Signed Patient: GEGE SNEED MR#: [id number] : 1955 Acct:[id number] Age/Sex: 68 / M ADM Date: 07/03/24 Loc: RAD Attending Dr: Gladis Garcia NP Ordering Physician: Gladis Garcia NP Date of Service: 07/03/24 Procedure(s): XR knee KUSUM 4V Accession Number(s): [id number] cc: Gladis Garcia NP; Dank Bella M.D. The [place] [address] Patient Name: GEGE SNEED MRN: [id number] date: 1955 Sex: M Assigned Patient Location: [facility] Current Patient Location: [facility] Accession/Order Number: [id number] Exam Date: 07/03/2024 09:39 Report Date: 07/03/2024 [...] Signed By: 07/03/24 1042 DD/ 1040 TD/TT: Drum Sander Offbearer: Procedure Note Radiology, Radiologist, - 07/03/2024 [place] [address] XRay Report Signed Patient: GEGE SNEED DMR#: [id number] : 1955cct:[id number] Age/Sex: 68 / MADM Date: 07/03/24 Loc: RAD Attending Dr: Gladis Garcia NP Ordering Physician: Gladis Garcia NP Date of Service: 07/03/24 Procedure(s): XR knee KUSUM 4V Accession Number(s): [id number] cc: Gladis Garcia NP; Dank Bella M.D. [place] [id number] Patient Name: GEGE SNEED MRN: [id number] date: 1955 Sex: M Assigned Patient Location: [facility] Current Patient Location: RAD Accession/Order Number: [id number] Exam Date: 07/03/2024 09:39 Report Date: 07/03/2024 [...] M.D. Signed By:07/03/24 1042 DD/ 1040 TD/TT: Drum Sander Offbearer: us Generic External Data Provider IMG XR PROCEDURES Final Result documented in this encounter Visit Diagnoses Not on filedocumented in this encounter Care Teams Systems Administrator Relationship Specialty Start Date End Date Dank Bella MD [address] [place] [address] PCP - General Family Medicine 08/17/23 Dakn Bella MD [address] [place] [address] PCP - Sadia ARMSTRONG 06/18/24 12/15/24 documented as of this encounter
--- OUTSIDE RECORDS SUMMARY | 2025-02-03 07:49 | XMS_ITS | CCD ---
Author Organization [facility] Care Team Providers Care Long Term Acute Care Registered Nurse Name Role Phone DANK CAMPO Primary Care [...] NADERER, DR DANK Leon Primary Care Unavailable WHARTON, DR SORIN Rodarte Consulting Unavailable NADERER, DR DANK Leon Admitting Unavailable NADERER, DR DANK Leon Attending Unavailable NADERER, DR DANK Leon Primary Care Unavailable FELIXEREGraciela, DR DANK Leon Consulting Unavailable MD Dank Campo Primary Care Provider MD Kike Bernal Attending Provider MD Dank Campo Attending Provider [phone] MD Dank Campo Attending Provider [phone] Dank Campo MD Primary Care Provider [phone] MD Dank Campo Primary Care Provider KERRI Boswell Attending Provider MD Dank Campo Referring Provider [phone] GREGORIA RALPH Referring Unavailable FELIXEREGraciela, DANK Primary Care Unavailable Peterson PETERSEN Attending Unavailable ROSALVA MURO Attending Unavailable ROSALVA MURO Admitting Unavailable Peterson PETERSEN Attending Unavailable DEJUAN PETERSEN Attending Unavailable Peterson PETERSEN Attending Unavailable Peterson PETERSEN Attending Unavailable Dank Campo MD Primary Care Provider Dank Campo MD Primary Care Provider [phone] Rich Alvares APRN Attending Provider Dank Campo [...] Unavailable Dank Campo MD Primary Care Provider [phone] Dank Cmapo MD Primary Care Provider [phone] Alber RAYMUNDO, Dank Primary Care Provider Gieditis , Andrius Vytautas Attending Unavailable Giedraitis , Andrius Vytautas Attending Unavailable Giedraitis , Andrius Vytautas Attending Unavailable Giedraitis , Andrius Vytautas Attending Unavailable Giedraitis , Andrius Vyta[place]as Attending Unavailable Giedraitis , Andrius Vytautas Attending Unavailable Giedraitis , Roma Arteaga Attending Unavailable Jessica RAYMUNDO, Roma Arteaga Attending Unavailable Dank Campo MD Primary Care Provider [phone] Rich Alvares APRN Attending Provider Dank Campo MD Unavailable Dank Campo MD Primary Care Provider HANNA BUTCHER Attending Unavailable NADERER, DANK Referring [...] Care Provider Rich Alvares APRN Attending Provider REBECCA DIAS [...] Unavailable Alber RAYMUNDO, Dank Primary Care Provider [phone] Allergies Allergy Classification Reported Allergen(s) Allergy Type Date of Onset Reaction(s) Facility (1 source) No Known Medication Allergies; Translations: [No Known Medication Allergies] Propensity to adverse reactions (disorder) [facility] Repository Medications Current Medications Medication [...] Ordered Start: 01-30-2019 take 1 capsule by [facility] in the morning celecoxib (CeleBREX) 200 MG [...] MG tablet Indications: JARAD (generalized anxiety disorder) ([facility]) Take 1 tablet (5 mg) by [...] hyperglycemia, with long-term current use of insulin ([facility]) Take 1 tablet (25 mg) by mouth [...] morning. 01/07/2024 Active fluticasone 0.05 mg/inh Nasal [place] (5 sources) Start: 07-28-2019 fluticasone 0. 05 mg/inh Nasal [place] Nasal, Daily, Refill(s) 0 Start Date: 07/28/19 [...] 5 days 20 tablet 04/24/2024 04/29/2024 Discontinued [id number] actuat albuterol 0.09 mg/actuat metered dose inhaler (2 sources) beta2-Adrenergic Agonist Start: 12-22-2020 End: 08-15-2023 take 2 puff(s) by inhalation every four hours as needed for wheezing albuterol (PROVENTIL HFA;VENTOLIN HFA) 90 mcg/actuation inhaler Indications: Chronic obstructive pulmonary disease, unspecified COPD type ([facility]) Inhale 2 puffs every 4 (four) [...] Fluticasone Propionate (Flonase Allergy Relief) 50 mcg/actuation [place],Suspension Discontinued 1 SPRAY INTRANASAL Daily February 11, 2020 12:00am July 24, 2022 1:24pm Start: 07-28-2019 fluticasone 0. 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 CURRENT DRUG THERAPY] Onset: 3 Episodic Other aftercare (20 sources) Long-term current use of insulin; Translations: [long term acute care registered nurse (current) use of insulin] Onset: 3 12-04-2022 Episodic Other aftercare (4 sources) Patient encounter status; Translations: [Other [place] [facility] (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 therapy] Onset: 4 08-29-2023 Episodic [...] current use of drug therapy; Translations: [Other [place] [facility] (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 therapy] Onset: 08-29-2023 08-29-2023 Episodic [...] on 01-28-2025 Glucose Blood, POC 294 mg/dL [facility] - Hematology and Cell countson 01-28-2025 HbA1c (Bld) [Mass fraction] 9.7 % [facility] No Panel InformationOrdered By: Natalia Salguero on 01-28-2025 [facility] XR CHEST 2 VWSon 10-27-2024 XR CHEST 2 VWS XR CHEST 2 VWS CHEST 2 VIEWS HISTORY: Shortness of breath COMPARISON: 05/21/2019 FINDINGS: No focal airspace disease, pulmonary edema, pleural effusions, or pneumothorax. Normal cardiomediastinal silhouette. IMPRESSION: No acute cardiopulmonary disease. Finalized by Abelardo Andres MD on 10/27/2024 10:24 AM Normal [facility] HbA1c (Bld) [Mass fraction]o n 07-31-2024 Interpretation and review of laboratory results Abnormal [facility] - Hematology and Cell countson 07-31-2024 HbA1c (Bld) [Mass fraction] 9.4 % [facility] X-ray reportOrdered By: Tico Mckeon on 07-30-2024 Study report [facility] [address] [address] XRay Report Signed Patient: Milad Seymour MR#: [id number] : 1955 Acct:[id number] Age/Sex: 68 / M ADM Date: 5 Loc: XD Room: Type: [facility] CLI Attending Dr: Rich Alvares DERMATOLOGIST MANAGING PARTNER Copies to: Rich Alvarse APRN~ Ordering Provider: Rich Alvares APRN Date [...] Osvaldo Mckeon M.D.07/30/2024 11:41 PM Dictation Location: [place] [address] Transcribed By: WOODY 07/30/24 234 Dictated By: Osvaldo Mckeon MD 07/30/24 2338 Signed By: 07/30/24 [facility] Work Phone: XR KUBon 07-30-2024 XR KUB [place] [id number] XRay Report Signed Patient: Milad Seymour MR#: [id number] : 1955 Acct:[id number] Age/Sex: 68 / M ADM Date: 07/30/24 Loc: XD Room: Type: [facility] CLI Attending Dr: Rich Alvares DERMATOLOGIST MANAGING PARTNER Copies to: Rich Alvares APRN Ordering Provider: [...] Osvaldo Mckeon M.D.07/30/2024 11:41 PM Dictation Location: [place] [address] Transcribed By: [facility] 07/30/24 2341 Dictated By: Osvaldo Mckeon MD 07/30/24 2338 Signed By: 07/30/24 2341 Normal [facility] XR Foot - left 3 [facility] Result: 3 vi ews left foot: Weight-bearing: DP, oblique, lateral: 05/29/2024: Unremarkable for fracture or stress fracture changes. Unremarkable for acute osseous or joint pathology. Incidental findings include os peroneum within the cuboid groove; enthesophyte formation at the 5th metatarsal styloid. [facility] Radiology Study observation (narrative) [facility] HbA1c (Bld) [Mass fraction]o n 04-29-2024 Interpretation and review of laboratory results Normal [facility] - Hematology and Cell countson 04-29-2024 HbA1c (Bld) [Mass fraction] 7.9 % [facility] ALL CBC WITH AUTO DIFFon BASOPHILS ABSOLUTE AUTO 0.1 [facility] Basophils/100 WBC (Bld) 0.6 % 0.2 - 2.0 % [facility] Eosinophils/100 WBC (Bld) 1.8 % 0.9 - 7.0 % [facility] Erythrocyte distribution width (RBC) [Ratio] 12.8 % 11.0 - 15.0 % [facility] Hematocrit (Bld) [Volume fraction] 40.7 % Low 42.0 - 54.0 % [facility] Hemoglobin (Bld) [Mass/Vol] 13.6 g/dL Low 14.0 - 18.0 g/dL [facility] IMMATURE GRANULOCYTES ABS AUTO 0.1 High [facility] Immature granulocytes/100 WBC (Bld) 1.2 % High 0.0 - 0.5 % [facility] Interpretation and review of laboratory results Abnormal [facility] LYMPHOCYTES ABSOLUTE AUTO 2 [facility] Lymphocytes/100 WBC (Bld) 24.2 % 20.5 - 60.0 % [facility] MCH (RBC) [Entitic mass] 30.6 pg 25.9 - 34.0 pg [facility] MCHC (RBC) [Mass/Vol] 33.4 g/dL 29.9 - 35.2 g/dL [facility] MCV (RBC) [Entitic vol] 91.7 fL 80.0 - 94.0 fL [facility] MONOCYTES ABSOLUTE AUTO 0.5 [facility] Monocytes/100 WBC (Bld) 6.3 % 1.7 - 12.0 % [facility] NEUTROPHILS ABSOLUTE AUTO 5.4 [facility] Neutrophils/100 WBC (Bld) 65.9 % 43.0 - 75.0 % [facility] Platelet mean volume (Bld) [Entitic vol] 9 fL Low 9.5 - 13.5 fL [facility] TBH EO # 0.2 [facility] TB PLT 143 Low [facility] TB RBC 4.44 Low [facility] WBC 8.2 [facility] BASIC METABOLIC PANLon 03-18 Anion gap [Moles/Vol] 9 mmol/L Normal 5-15 [facility] Comment on above: Performed By: #### P INR, CBCA, BMP #### [facility] ([id number]) [address] [place] [address] Calcium [Mass/Vol] 9.7 mg/dL Normal 8.5-10.5 [facility] Comment on above: Performed By: #### P INR, CBCA, BMP #### [facility] ([id number]) [address], [address] [place] [address] Chloride [Moles/Vol] 99 mmol/L Normal 98-109 [facility] Comment on above: Performed By: #### P INR, CBCA, BMP #### [facility] ([id number]) [address] [place] [address] CO2 [Moles/Vol] 23 mmol/L Normal 22-32 [facility] Comment on above: Performed By: #### P INR, CBCA, BMP #### [facility] ([id number]) [address] [address] [place] [address] Creatinine [Mass/Vol] 1.60 mg/dL High 0.60-1.30 [facility] Comment on above: Result Comment: METH OD TRACEABLE TO IDMS STANDARD Performed By: #### P INR, CBCA, BMP #### [facility] ([id number]) [address] [address] [place] [address] GFR/1.73 sq M.predicted among non-blacks MDRD (S/P/Bld) [Vol rate/Area] 47 mL/min/{1.73_m2} Low >59 [facility] Comment on above: Result Comment: Reported eGFR is based on the CKD-EPI 2020 equation that does not use a race coefficient. Performed By: #### P INR, CBCA, BMP #### [facility] ([id number]) [address] [place] [address] Glucose [Mass/Vol] 210 mg/dL High 65-99 [facility] Comment on above: Performed By: #### P INR, CBCA, BMP #### [facility] ([id number]) [address] [address] [place] [address] Potassium [Moles/Vol] 5.9 mmol/L High 3.5-5.0 [facility] Comment on above: Performed By: #### P INR, CBCA, BMP #### [facility] ([id number]) [address] [place] [address] Sodium [Moles/Vol] 131 mmol/L Low 134-146 [facility] Comment on above: Performed By: #### P INR, CBCA, BMP #### [facility] ([id number]) [address] [address] [place] [address] Urea nitrogen [Mass/Vol] 55 mg/dL High 5-27 [facility] Comment on above: Performed By: #### P INR, CBCA, BMP #### [facility] ([id number]) [address] [place] [address] CBC AND AUTO DIFFon 03-18-20 24 ABSOLUTE BASOPHIL 0.1 X10E9/L Normal 0.0-0.2 [facility] Comment on above: Performed By: #### P INR, CBCA, BMP #### [facility] ([id number]) [address], [address] [place] [address] ABSOLUTE NEUTROPHIL 10.1 X10E9/L High 1.5-6.6 [facility] Comment on above: Performed By: #### P INR, CBCA, BMP #### [facility] ([id number]) [address] [address] [place] [address] Basophils/100 WBC (Bld) 0.4 % Normal [facility] Comment on above: Performed By: #### P INR, CBCA, BMP #### [facility] ([id number]) [address] [address] [place] [address] Eosinophils (Bld) [#/Vol] 0.1 10*3/uL Normal 0.0-0.4 [facility] Comment on above: Performed By: #### P INR, CBCA, BMP #### [facility] ([id number]) [address] [address] [address] [place] [address] Eosinophils/100 WBC (Bld) 0.5 % Normal [facility] Comment on above: Performed By: #### P INR, CBCA, BMP #### [facility] ([id number]) [address] [address] [place] [address] Erythrocyte distribution width (RBC) [Ratio] 14.1 % Normal 11.5-15.0 [facility] Comment on above: Performed By: #### P INR, CBCA, BMP #### [facility] ([id number]) [address] [address] [place] [address] Hematocrit (Bld) [Volume fraction] 42.0 % Normal 39-49 [facility] Comment on above: Performed By: #### P INR, CBCA, BMP #### [facility] ([id number]) [address], [facility] [address] [place] [address] Hemoglobin (Bld) [Mass/Vol] 14.3 g/dL Normal 13.0-17.0 [facility] Comment on above: Performed By: #### P INR, CBCA, BMP #### [facility] ([id number]) [address], [facility] [address] [place] [address] Lymphocytes (Bld) [#/Vol] 1.8 10*3/uL Normal 1.0-3.5 [facility] Comment on above: Performed By: #### P INR, CBCA, BMP #### [facility] ([id number]) [address], [facility] [address] [place] [address] Lymphocytes/100 WBC (Bld) 14.1 % Normal [facility] Comment on above: Performed By: #### P INR, CBCA, BMP #### [facility] ([id number]) [address], [facility] [address] [place] [address] MCH (RBC) [Entitic mass] 31.7 pg Normal 27-34 [facility] Comment on above: Performed By: #### P INR, CBCA, BMP #### [facility] ([id number]) [address], [facility] [address] [place] [address] MCHC (RBC) [Mass/Vol] 34.0 g/dL Normal 32-36 [facility] Comment on above: Performed By: #### P INR, CBCA, BMP #### [facility] ([id number]) [address], [facility] [address] [place] [address] MCV (RBC) [Entitic vol] 93 fL Normal 80-100 [facility] Comment on above: Performed By: #### P INR, CBCA, BMP #### [facility] ([id number]) [address], [address] [place] [address] Monocytes (Bld) [#/Vol] 0.5 10*3/uL Normal 0-0.9 [facility] Comment on above: Performed By: #### P INR, CBCA, BMP #### [facility] ([id number]) [address], [address] [place] [address] Monocytes/100 WBC (Bld) 4.1 % Normal [facility] Comment on above: Performed By: #### P INR, CBCA, BMP #### [facility] ([id number]) [address], [address] [place] [address] Neutrophils/100 WBC (Bld) 80.9 % Normal [facility] Comment on above: Performed By: #### P INR, CBCA, BMP #### [facility] ([id number]) [address], [address] [place] [address] Platelet mean volume (Bld) [Entitic vol] 7.4 fL Normal 7-12 [facility] Comment on above: Performed By: #### P INR, CBCA, BMP #### [facility] ([id number]) [address], [address] [place] [address] Platelets (Bld) [#/Vol] 171 10*3/uL Normal 150-450 [facility] Comment on above: Performed By: #### P INR, CBCA, BMP #### [facility] ([id number]) [address], [address] [place] [address] RBC COUNT 4.51 X10E12/L Normal 4.10-5.70 [facility] Comment on above: Performed By: #### P INR, CBCA, BMP #### [facility] ([id number]) [address], [address] [place] [address] WBC (Bld) [#/Vol] 12.5 10*3/uL High 4.0-11.0 [facility] Comment on above: Performed By: #### P INR, CBCA, BMP #### [facility] ([id number]) [address], [address] [place] [address] CBC W Auto Differential pane l (Bld)on 03-18-2024 ABSOLUTE BASOPHIL 0.1 [facility] Comment on above: PERFORMED AT [facility] [address],[place] [address] Basophils/100 WBC (Bld) 0.4 % [facility] Eosinophils (Bld) [#/Vol] 0.1 10*3/uL [facility] Eosinophils/100 WBC (Bld) 0.5 % [facility] Erythrocyte distribution width (RBC) [Ratio] 14.1 % 11.5 - 15.0 % [facility] Hematocrit (Bld) [Volume fraction] 42.0 % 39 - 49 % [facility] Hemoglobin (Bld) [Mass/Vol] 14.3 g/dL 13.0 - 17.0 g/dL [facility] Interpretation and review of laboratory results Abnormal [facility] Lymphocytes (Bld) [#/Vol] 1.8 10*3/uL [facility] Lymphocytes/100 WBC (Bld) 14.1 % [facility] MCH (RBC) [Entitic mass] 31.7 pg 27 - 34 pg [facility] MCHC (RBC) [Mass/Vol] 34.0 g/dL 32 - 36 g/dL [facility] MCV (RBC) [Entitic vol] 93 fL 80 - 100 fL [facility] Monocytes (Bld) [#/Vol] 0.5 10*3/uL [facility] Monocytes/100 WBC (Bld) 4.1 % [facility] Neutrophils (Bld) [#/Vol] 10.1 10*3/uL High [facility] Neutrophils/100 WBC (Bld) 80.9 % [facility] Platelet mean volume (Bld) [Entitic vol] 7.4 fL 7 - 12 fL [facility] Platelets (Bld) [#/Vol] 171 10*3/uL [facility] RBC (Bld) [#/Vol] 4.51 10*6/uL [facility] WBC corrected for nucl RBC Auto (Bld) [#/Vol] 12.5 High [facility] PROTIME AND INRon 03-18-2024 INR Coag (PPP) [Relative time] 1.0 {INR} Normal 0.8-1.1 [facility] Comment on above: Performed By: #### P INR, CBCA, BMP #### [facility] ([id number]) [address], [address] [place] [address] PT Coag (PPP) [Time] 11.7 s Normal 9.8-13.2 [facility] Comment on above: Performed By: #### P INR, CBCA, BMP #### [facility] ([id number]) [address], [address] [place] [address] Ambulatory Visit Summaryon 0 02-04-2024 Ambulatory Visit [...] Cap) fluticasone nasal (fluticasone 0.05 mg/inh Nasal [place]) insulin lispro (Insulin Lispro KwikPen 100 units/mL [...] [facility] [address], [place] [phone] Medications What How Much When Instructions Unchanged aspirin (aspirin 81 mg Oral EC Tab) By Mouth Every day Contact prescribing physician if questions or concerns Unchanged celecoxib By Mouth Contact prescribing physician if questions or concerns Unchanged fluoxetine (FLUoxetine 20 mg Cap) 1 Capsules By Mouth Contact prescribing physician if questions or concerns Unchanged fluticasone nasal (fluticasone 0.05 mg/ inh Nasal [place]) Nasal Inhalation Every day Contact prescribing physician [...] with pro (more content not included)... Normal [facility] Urology Office/Clinic Noteon 02-04-2024 Urology [...] [facility] [address], [place] [phone] Additional Instructions: 1 yr w/ PSA Patient [...] 1 cap(s), Oral fluticasone 0.05 mg/inh Nasal [place], Nasal, Daily Ilumya 100 mg/mL subcutaneous solution, [...] Recorded SARS-CoV- (more content not included)... Normal [facility] Comment on above: Result Comment: Elec tronically Signed By: Peterson PETERSEN MD\.br\Date and Time Signed: 02/04/24 12:52 EDT\.br\Electronically Co-Signed By: Johana Reeves.br\Date and Time Co-Signed: 02/04/24 12:50 EDT NM gastric emptying studyon 08-22-2023 NM gastric emptying study [facility] Main [place] [address] [place] [address] Nuclear Medicine Report Signed Patient: Milad Seymour MR#: [id number] : 1955 Acct:[id number] Age/Sex: 67 / M ADM Date: 08/22/23 Loc: [place] Room: Type: [facility] Attending Dr: Kike Bernal MD [...] Grimes Jr., D.O.08/22/2023 12:21 PM Dictation Location: [place] [address] Transcribed By: [facility] 08/22/23 1221 Dictated By: Shaheen Grimes Jr, DO 08/22/23 1215 Signed By: 08/22/23 1221 Normal [facility] Glucose Poct Glucometerson 0 08-20-2023 Glucose [Mass/Vol] 182 mg/dL Normal [facility] Comment on above: Result Comment: [facility] Glucose Reference Range is dependent on time and content of last meal. Glucose of more than 200 mg/dL in a nonstressed, ambulatory subject supports the diagnosis of Diabetes Mellitus. PERFORMED BY: [place] [address] PATHOLOGIST FOOD MIXER JIANLAN SUN M.D. Performed By: #### G LULS #### Point of Care testing , Glucose [Mass/Vol] 227 mg/dL Normal [facility] Comment on above: Result Comment: [facility] Glucose Reference Range is dependent on time and content of last meal. Glucose of more than 200 mg/dL in a nonstressed, ambulatory subject supports the diagnosis of Diabetes Mellitus. PERFORMED BY: [place] [address] PATHOLOGIST FOOD MIXER JEANNINE VAZQUEZ M.D. Performed By: #### G LULS #### Point of Care testing , XR pre/post mri xrayon 08-19 XR pre/post mri xray [facility] Main [place] [address] [place] [address] MRI Report Signed Patient: Milad Seymour MR#: [id number] : 1955 Acct:[id number] Age/Sex: 67 / M ADM Date: 08/20/23 Loc: [place] Room: Type: [facility] Attending Dr: Dank Campo MD Copies to: Dank Campo MD Ordering Provider: Dank Campo MD Date of Service: 08/20/23 MR/MR lumbar spine wo con: [id number] ([id number]) XR/XR pre/post mri xray: PRE LUMBAR MRI [...] Tom Chanel M.D.08/20/2023 1:02 PM Dictation Location: [place] [address] Transcribed By: [facility] 08/20/23 1302 Dictated By: Tom Chanel DO 08/20/23 1250 Signed By: 08/20/23 1302 Normal [facility] HbA1c (Bld) [Mass fraction]o n 07-30-2023 Interpretation and review of laboratory results Abnormal [facility] - Hematology and Cell countson 07-30-2023 HbA1c (Bld) [Mass fraction] 8.9 % [facility] Glucose Glucometer (BldC) [M ass/Vol]Ordered By: Kike Bernal on 04-27-2023 Glucose [Mass/Vol] 189 mg/dL [facility] Comment on above: Random Glucose Refer ence Range is dependent on time and content of last meal. Glucose of more than 200 mg/dL in a nonstressed, ambulatory subject supports the diagnosis of Diabetes Mellitus. No Panel InformationOrdered By: Kike Bernal on 04-27-2023 Bedside Glucose Comment Glu2: cleaned meter [facility] Patient Educationon 02-13-20 Patient Education Oncology [...] external be (more content not included)... Normal [facility] Reminderson 02-12-2023 Reminders - From: Johana Reeves To: EU - Recalls Nicola; Sent: 02/12/2023 17:56:32 EDT Show up: 01/13/2024 17:56:00 EDT Subject: PSA prior to appt Reminder Message Please Remember to:_have pt get PSA done prior to appt in 1 year. Normal [facility] Urology Office/Clinic Noteon 02-12-2023 Urology Office/Clinic [...] [facility] [address], [place] [phone] Additional Instructions: 1 yr w/ PSA Patient [...] TID celecoxib, Oral fluticasone 0.05 mg/inh Nasal [place], Nasal, Daily Insulin Lispro KwikPen 100 units/mL [...] used for this result was chemiluminescence using [employer] Access [employer] PSA reagent. PSA Total 0.5 ng/mL 11/28/2022 11:31 EDT The concentration of P (more content not included)... Normal [facility] [facility] Comment on above: Result Comment: [...] celecoxib fluticasone nasal (fluticasone 0.05 mg/inh Nasal [place]) lansoprazole lisinopril metformin metoprolol (metoprolol 25 mg ER Tab) simvastatin Procedures Performed Laparoscopic cholecystectomy (03/2021), Radiation (01/16/2020), Transrectal biopsy of prostate using ultrasound (US) guidance (09/23/2019), Transrectal biopsy of prostate using ultrasound (US) guidance (09/03/2018), Appendectomy, Colonoscopy, Tonsillectomy. What to do next Scheduled Follow-Up Appointments Sunday 9:15 AM EDT With: NICOLA RAYMUNDO, Peterson Owens Where: [facility] CHEMISTRYOrdered By: SYSTEM SYSTEM on 02-06-2023 Prostate specific Ag [Mass/Vol] 0.4 ng/mL Normal 0.1 - 3.5 ng/mL [facility] Remisol PSA Totalon 02-06-2023 Prostate specific Ag [Mass/Vol] 0.4 ng/mL Normal 0.1-3.5 [facility] Comment on above: Result Comment: The concentration of PSA determined by different manufacturers can vary due to differences in assay methods and reagent specificity. Values obtained from different assay methods cannot be used interchangeably. The methodology used for this result was chemiluminescence using [employer]'s Access Hybritech PSA reagent. Performed By: #### 1 [id number] #### [facility] [address] [place] [address] PANCREATIC ELASTASE FECALon 09-24-2022 Pancreatic Elastase, Fecal 467 ug Elast./g Normal >200 [facility] Comment on above: Result Comment: Nicolle re Pancreatic Insufficiency: <100 Moderate Pancreatic Insufficiency: 100 - 200 Normal: >200 Performed By: #### C PEPT #### [facility] [address] [place], [place] [address] Dr. Stewart De La Cruz POTASSIUM, FECALon 3 Potassium, Stool 57 mmol/L Normal [facility] Comment on above: Result Comment: INTE RPRETIVE INFORMATION: Fecal Potassium A reference interval has not been established for fecal specimens. This test was developed and its performance characteristics determined by [facility]. It has not been cleared or approved by the [place] Food and Drug Administration. This test was performed in a CLIA certified laboratory and is intended for clinical purposes. Performed By: #### C PEPT #### [facility] [address] [address] [address] Stewart De La Cruz SODIUM, FECALon 09-17-2022 Sodium, Stool 65 mmol/L Normal [facility] Comment on above: Result Comment: INTE RPRETIVE INFORMATION: Fecal Sodium A reference interval has not been established for fecal specimens. This test was developed and its performance characteristics determined by [facility]. It has not been cleared or approved by the [place] Food and Drug Administration. This test was performed in a CLIA certified laboratory and is intended for clinical purposes. Performed By: #### F ECALN #### [facility] [address] [place] [address] Dr. Stewart De La Cruz CALPROTECTIN, FECALon 2022 Calprotectin, Fecal 43 ug/g Normal 0-120 [facility] Comment on above: Result Comment: Conc entration Interpretation Follow-Up <16 - 50 ug/g Normal None >50 -120 ug/g Borderline Re-evaluate in 4-6 weeks >120 ug/g Abnormal Repeat as clinically indicated Performed By: #### C PEPT #### [facility] [address] [place] [address] Dr. Stewart De La Cruz C-PEPTIDE, SERUMon 3 C-Peptide, Serum 6.5 ng/mL Critically high 1.1-4.4 [facility] Comment on above: Result Comment: C-Pe ptide reference interval is for fasting patients. Performed By: #### C PEPT #### [facility] [address] [place] [address] Dr. Stewart De La Cruz HIV 1 AND 2 WITH REFLEXon HIV Screen 4th Generation wRfx Non-Reactive Normal Non Reactive [facility] Comment on above: Result Comment: HIV Negative HIV-1/HIV-2 antibodies and HIV-1 p24 antigen were NOT detected. There is no laboratory evidence of HIV infection. Performed By: #### C PEPT #### [facility] [address] [place] [address] Dr. Stewart De La Cruz INSULINon 09-13-2022 Insulin 13.9 uIU/mL Normal 2.6-24.9 [facility] Comment on above: Performed By: #### C PEPT #### [facility] [address] [place] [address] Dr. Stewart De La Cruz POTASSIUM, FECALon Potassium, Stool QNSMT Normal [facility] Comment on above: Result Comment: Test not performed. One specimen was submitted with requests for multiple tests. The requested testing requires a separate specimen for each test requested. contacted Keesha at your facility on 09-13-2022 Performed By: #### C PEPT #### [facility] [address] [place] [address] Dr. Stewart De La Cruz SODIUM, FECALon 09-13-2022 Sodium, Stool QNSMT Normal [facility] Comment on above: Result Comment: Test not performed. One specimen was submitted with requests for multiple tests. The requested testing requires a separate specimen for each test requested. contacted Keesha at your facility on 09-13-2022 Performed By: #### F ECALN #### [facility] [address] [place] [address] Dr. Stewart De La Cruz CBC AUTO DIFFon 09-12-2022 BASO # 0.1 103/ul Normal 0.0-0.1 [facility] Comment on above: Performed By: #### C PEPT #### [facility] [address] [place] [address] Dr. Stewart De La Cruz Basophils/100 WBC (Bld) 1.2 % Normal 0.2-2.0 [facility] Comment on above: Performed By: #### C PEPT #### [facility] [address] [place] [address] Dr. Stewart De La Cruz EO # 0.3 103/ul Normal 0.0-0.7 [facility] Comment on above: Performed By: #### C PEPT #### [facility] [address] [place] [address] Dr. Stewart De La Cruz Eosinophils/100 WBC (Bld) 4.5 % Normal 0.9-7.0 [facility] Comment on above: Performed By: #### C PEPT #### [facility] [address] [place] [address] Dr. Stewart De La Cruz Erythrocyte distribution width (RBC) [Ratio] 12.9 % Normal 11.0-15.0 [facility] Comment on above: Performed By: #### C PEPT #### [facility] [address] [place] [address] Dr. Stewart De La Cruz Hematocrit (Bld) [Volume fraction] 44.6 % Normal 42.0-54.0 [facility] Comment on above: Performed By: #### C PEPT #### [facility] [address] [place] [address] Dr. Stewart De La Cruz Hemoglobin (Bld) [Mass/Vol] 14.9 g/dL Normal 14.0-18.0 [facility] Comment on above: Performed By: #### C PEPT #### [facility] [address] [place] [address] Dr. Stewart De La Cruz IG # 0.03 10e3/ul Normal 0.00-0.03 [facility] Comment on above: Performed By: #### C PEPT #### [facility] [address] [place] [address] Dr. Stewart De La Cruz IG % 0.5 % Normal 0.0-0.5 [facility] Comment on above: Performed By: #### C PEPT #### [facility] [address] [place] [address] Dr. Stewart De La Cruz LYMPH # 1.1 103/ul Critically low 1.2-3.8 [facility] Comment on above: Performed By: #### C PEPT #### [facility] [address] [place] [address] Dr. Stewart De La Cruz Lymphocytes/100 WBC (Bld) 18.5 % Critically low 20.5-60.0 [facility] Comment on above: Performed By: #### C PEPT #### [facility] [address] [place] [address] Dr. Stewart De La Cruz MANUAL DIFF REQ NO Normal [facility] Comment on above: Performed By: #### C PEPT #### [facility] [address] [place] [address] Dr. Stewart De La Cruz MCH (RBC) [Entitic mass] 29.2 pg Normal 25.9-34.0 [facility] Comment on above: Performed By: #### C PEPT #### [facility] [address] [address] [address] Stewart De La Cruz MCHC (RBC) [Mass/Vol] 33.4 g/dL Normal 29.9-35.2 [facility] Comment on above: Performed By: #### C PEPT #### [facility] [address] [address] [address] Steawrt De La Cruz MCV (RBC) [Entitic vol] 87.5 fL Normal 80.0-94.0 [facility] Comment on above: Performed By: #### C PEPT #### [facility] [address] [place] [address] Dr. Stewart De La Cruz MONO # 0.4 103/ul Normal 0.3-0.8 [facility] Comment on above: Performed By: #### C PEPT #### [facility] [address] [place] [address] Dr. Stewart De La Cruz Monocytes/100 WBC (Bld) 6.8 % Normal 1.7-12.0 [facility] Comment on above: Performed By: #### C PEPT #### [facility] [address] [place] [address] Dr. Stewart De La Cruz NEUT # 4.2 103/ul Normal 1.4-6.5 [facility] Comment on above: Performed By: #### C PEPT #### [facility] [address] [place] [address] Dr. Stewart De La Cruz Neutrophils/100 WBC (Bld) 68.5 % Normal 43.0-75.0 [facility] Comment on above: Performed By: #### C PEPT #### [facility] [address] [place] [address] Dr. Stewart De La Cruz Platelet mean volume (Bld) [Entitic vol] 9.8 fL Normal 9.5-13.5 [facility] Comment on above: Performed By: #### C PEPT #### [facility] [address] [place] [address] Dr. Stewart De La Cruz PLT 133 103/ul Critically low 150-450 [facility] Comment on above: Performed By: #### C PEPT #### [facility] [address] [address] [address] Stewart De La Cruz RBC 5.10 106/ul Normal 4.70-6.10 [facility] Comment on above: Performed By: #### C PEPT #### [facility] [address] [place] [address] Dr. Stewart De La Cruz WBC 6.1 103/ul Normal 4.0-11.0 [facility] Comment on above: Performed By: #### C PEPT #### [facility] [address] [place] [address] Dr. Stewart De La Cruz CRPon 09-12-2022 CRP [Mass/Vol] mg/L Normal <=1.0 [facility] Comment on above: Performed By: #### C RP #### [facility] [address] [place] [address] Dr. Stewart De La Cruz GLYCOHEMOGLOBIN A1Con 2022 ADA RECOMMENDATION SEE BELOW Normal [facility] Comment on above: Result Comment: ADA RECOMMENDED LIMIT 4.0 - 6.0 ADA THERAPEUTIC TARGET < 7.0 ACTION SUGGESTED > 7.0 Performed By: #### A 1C #### [facility] [address] [place] [address] Dr. Stewart De La Cruz Glucose [Mass/Vol] 278 mg/dL Normal [facility] Comment on above: Performed By: #### A 1C #### [facility] [address] [place] [address] Dr. Stewart De La Cruz HbA1c (Bld) [Mass fraction] 11.3 % Critically high 4.5-6.2 [facility] Comment on above: Performed By: #### A 1C #### [facility] [address] [place] [address] Dr. Stewart De La Cruz PROF CHEM 8 (BAS METB)on Anion gap [Moles/Vol] 16.9 mmol/L Normal [facility] Comment on above: Performed By: #### C PEPT #### [facility] [address] [place] [address] Dr. Stewart De La Cruz Calcium [Mass/Vol] 9.3 mg/dL Normal 8.5-10.[address] [facility] Comment on above: Performed By: #### C PEPT #### [facility] [address] [place] [address] Dr. Stewart De La Cruz Chloride [Moles/Vol] 103 mmol/L Normal 98-107 [facility] Comment on above: Performed By: #### C PEPT #### [facility] [address] [place] [address] Dr. Stewart De La Cruz CO2 [Moles/Vol] 26.0 mmol/L Normal 21.0-32.0 [facility] Comment on above: Performed By: #### C PEPT #### [facility] [address] [place] [address] Dr. Stewart De La Cruz Creatinine [Mass/Vol] 1.43 mg/dL Critically high 0.70-1.30 [facility] Comment on above: Performed By: #### C PEPT #### [facility] [address] [place] [address] Dr. Stewart De La Cruz EGFR-AF MARTINIQUAIS 60 mL/min/1.73m2 Normal >=60 [facility] Comment on above: Performed By: #### C PEPT #### [facility] [address] [place] [address] Dr. Stewart De La Cruz EGFR-NON AF MARTINIQUAIS 49 mL/min/1.73m2 Critically low >=60 [facility] Comment on above: Performed By: #### C PEPT #### [facility] [address] [place] [address] Dr. Stewart De La Cruz Glucose [Mass/Vol] 293 mg/dL Critically high 74-106 [facility] Comment on above: Performed By: #### C PEPT #### [facility] [address] [place] [address] Dr. Stewart De La Cruz Potassium [Moles/Vol] 4.9 mmol/L Normal 3.5-5.1 [facility] Comment on above: Performed By: #### C PEPT #### [facility] [address] [place] [address] Dr. Stewart De La Cruz Sodium [Moles/Vol] 141 mmol/L Normal 136-145 [facility] Comment on above: Performed By: #### C PEPT #### [facility] [address] [address] [address] Stewart De La Cruz Urea nitrogen [Mass/Vol] 32.0 mg/dL Critically high 7.0-18.0 [facility] Comment on above: Performed By: #### C PEPT #### [facility] [address] [address] [address] Stewart De La Cruz Urea nitrogen/Creatinine [Mass ratio] 22.4 mg/mg Normal [facility] Comment on above: Performed By: #### C PEPT #### [facility] [address] [address] [address] Stewart De La Cruz [facility] SED RATE 17 mm/hr Normal <=20 [facility] Comment on above: Performed By: #### S EDR #### [facility] [address] [place] [address] Dr. Stewart De La Cruz RAD EGD - documentation only do not orderon 07-25-2022 RAD EGD - documentation only do not order [employer] Other Glucose Glucometer (BldC) [M ass/Vol]Ordered By: Kike Bernal on 07-24-2022 Glucose [Mass/Vol] 275 mg/dL [facility] Comment on above: Random Glucose Refer ence Range is dependent on time and content of last meal. Glucose of more than 200 mg/dL in a nonstressed, ambulatory subject supports the diagnosis of Diabetes Mellitus. GLYCOHEMOGLOBIN A1Con 2021 ADA RECOMMENDATION SEE BELOW Normal [facility] Comment on above: Result Comment: ADA RECOMMENDED LIMIT 4.0 - 6.0 ADA THERAPEUTIC TARGET < 7.0 ACTION SUGGESTED > 7.0 Performed By: #### A 1C #### [facility] [address] [address] [address] Stewart De La Cruz Glucose [Mass/Vol] 235 mg/dL Normal [facility] Comment on above: Performed By: #### A 1C #### [facility] [address] [address] [address] Stewart De La Cruz HbA1c (Bld) [Mass fraction] 9.8 % Critically high 4.5-6.2 [facility] Comment on above: Performed By: #### A 1C #### [facility] [address] [address] [address] Stewart De La Cruz GLYCOHEMOGLOBIN A1Con 2021 ADA RECOMMENDATION SEE BELOW Normal [facility] Comment on above: Result Comment: ADA RECOMMENDED LIMIT 4.0 - 6.0 ADA THERAPEUTIC TARGET < 7.0 ACTION SUGGESTED > 7.0 Performed By: #### A 1C #### [facility] [address] [address] [address] Stewart De La Cruz Glucose [Mass/Vol] 197 mg/dL Normal [facility] Comment on above: Performed By: #### A 1C #### [facility] [address] [place] [address] Dr. Stewart De La Cruz HbA1c (Bld) [Mass fraction] 8.5 % Critically high 4.5-6.2 [facility] Comment on above: Performed By: #### A 1C #### [facility] [address] [place] [address] Dr. Stewart De La Cruz PSA, FREE AND TOTAL RATIOon 01-28-2022 % Free PSA 30.0 % Normal [facility] Comment on above: Result Comment: [...] By: #### P SAFREE #### [facility] [address] [place] [address] Dr. Stewart De La Cruz Prostate specific Ag [Mass/Vol] 0.1 ng/mL Normal 0.0-4.0 [facility] Comment on above: Result Comment: Nina jaime ECLIA methodology. . According to the [employer] [employer], Serum PSA should decrease and [...] By: #### P SAFREE #### [facility] [address] [place] [address] Dr. Stewart De La Cruz PSA, Free 0.03 ng/mL Normal N/A [facility] Comment on above: Result Comment: Nina jaime ECLIA methodology. Performed By: #### P SAFMILDRED #### [facility] [address] [place] [address] Dr. Stewart De La Cruz GLYCOHEMOGLOBIN A1Con 2021 ADA RECOMMENDATION SEE BELOW Normal [facility] Comment on above: Result Comment: ADA RECOMMENDED LIMIT 4.0 - 6.0 ADA THERAPEUTIC TARGET < 7.0 ACTION SUGGESTED > 7.0 Performed By: #### A 1C #### [facility] [address] [place] [address] Dr. Stewart De La Cruz Glucose [Mass/Vol] 192 mg/dL Normal [facility] Comment on above: Performed By: #### A 1C #### [facility] [address] [place] [address] Dr. Stewart De La Cruz HbA1c (Bld) [Mass fraction] 8.3 % Critically high 4.5-6.2 [facility] Comment on above: Performed By: #### A 1C #### [facility] [address] [place] [address] Dr. Stewart De La Cruz CNOVon 02-01-2021 CNOV Office Visit (RADTSA ) -- MILAD SEYMOUR ([id number]) 1955 M Date Time Provider Department 02/01/21 [...] cc: Dank Campo MD (Dr) [id number] Petersen Portions of the above note extracted and edited from previous visit as well as active information included in the EMR. Referring Provider: Fawad DIAZ [[id number]] Allergies As of Date: 02/01/2021 (No Known Allergies) Date Reviewed: 02/01/2021 Reviewed by: Tila Herrera LPN - Fully Assessed Reason for Visit: Prostate Cancer [590] Primary Visit Diagnosis:Malignant neoplasm of prostate (HCC) [C61] Order(s):PSA/PROSTSPECAG DIAG [SQPSA] Order #: [id number] FUTURE Prescriptions as of 02/03/2021 - aspirin, [...] magnesium) t (more content not included)... Normal [facility] PSA, Diagnosticon 01-25-2021 PSA, Diagnostic 0.29 ng/mL Normal 0.00-2.59 [facility] Comment on above: Result Comment: Sandra manzo PSA test methodology used is the Electrochemiluminescence Immunoassay. Performed By: #### P SA #### [facility] [employer] [address] [place], [place] [address] OBSOLETEon 12-22-2020 OBSOLETE Refill (RADTSA) -- MILAD SEYMOUR ([id number]) 1955 Date Time Provider Department 12/22/20 Fawad [...] Encounter Status:Closed by TILA HERRERA on 01/04/21 [facility] CNOVon 11-03-2020 CNOV Office Visit (RADTSA ) -- MILAD SEYMOUR ([id number]) 1955 M Date Time Provider Department 11/03/20 4:00 PM LAB/PORT RADT ADAM MUNGUIAEdward During your visit today, we recorded the following information about you: Referring Provider: Fawad DIAZ [[id number]] Allergies As of Date: 11/03/2020 (No Known [...] Status:Closed by TILA HERRERA on 11/03/20 Normal [facility] CNOV Office Visit (RADTSA ) -- MILAD SEYMOUR ([id number]) 1955 M Date Time Provider Department 11/03/20 [...] Fawad Diaz MD cc: Dank Campo MD ([facility]) [address] [place] [id number] Petersen Referring Provider: Fawad DIAZ [[id number]] Allergies As of Date: 11/03/2020 (No Known Allergies) Date Reviewed: 11/03/2020 Reviewed by: Fawad Diaz MD - Fully Assessed Reason for Visit: Prostate Cancer [590] Primary Visit Diagnosis:Malignant neoplasm of prostate (HCC) [C61] Order(s):PSA/PROSTSPECAG DIAG [SQPSA] Order #: [id number] FUTURE Prescriptions as of 11/03/2020 Sig: TAMSULOSIN [...] 30 mg (more content not included)... Normal [facility] PSA, Diagnosticon 11-01-2020 PSA, Diagnostic 0.27 ng/mL Normal 0.00-2.59 [facility] Comment on above: Result Comment: Tota l PSA test methodology used is the Electrochemiluminescence Immunoassay. Performed By: #### P SA #### [facility] [address] [place], [place] [address] Giuseppe 10-29-2020 CLAUDY Telephone (RADTSA) -- MILAD SEYMOUR ([id number]) 1955 M Date Time Provider Department 10/29/20 [...] since completing radiation therapy. Call transferred to [facility] to move up appointment. [...] (HCC) [C61] Order(s):PSA/PROSTSPECAG DIAG [SQPSA] Order #: [id number] FUTURE Prescriptions as of 10/29/2020 Sig: TAMSULOSIN [...] Encounter Status:Closed by TILA HERRERA on 10/29/20 [facility] MILAD SEYMOUR ([id number]) 1955 M Date Time Provider Department 10/08/20 HEATHER BARRIGA During your visit today, we recorded the following information about you: Allergies As of Date: 10/08/2020 (No Known Allergies) Date Reviewed: 07/14/2020 Reviewed by: Joann Richardson - Fully Assessed Reason for Visit: Lab Orders [2738] Primary Visit Diagnosis:Iron deficiency anemia due to chronic blood loss [D50.0] Order(s):CBC + DIFF (FOR REMOTE [facility] USE) [SQRCBCDF] Order #: [id number] FUTURE COMP METABOLIC PANEL [SQCMP] Order #: [id number] FUTURE Prescriptions as of 10/08/2020 Sig: TAMSULOSIN [...] Encounter Status:Closed by TASHA GOOD on 10/14/20 [facility] OBSOLETEon 09-20-2020 OBSOLETE Refill (RADTSA) -- MILAD SEYMOUR ([id number]) 1955 M Date Time Provider Department 09/20/20 [...] Status:Closed by TILA HERRERA on 10/14/20 Normal [facility] Vital Signs Date Time Vital Sign Value Performing Clinician Facility 01-28-2025 11:20-040 Body height 174 cm Deb Matthew MD Work Phone: [facility] 01-28-2025 11:20-0400 Body mass index (BMI) [Ratio] 38.66 kg/m2 Deb Matthew MD Work Phone: [facility] 01-28-2025 11:20-040 Body weight 117.03 kg Deb Matthew MD Work Phone: [facility] 01-28-2025 11:20-0400 Diastolic blood pressure 70 mm[Hg] Deb Matthew MD Work Phone: [facility] 01-28-2025 11:20-0400 Heart rate 75 /min Deb Matthew MD Work Phone: [facility] 01-28-2025 11:20-0400 Respiratory rate 16 /min Deb Matthew MD Work Phone: [facility] 01-28-2025 11:20-0400 SaO2% (BldA) [Mass fraction] 96 % Deb Matthew MD Work Phone: [facility] 01-28-2025 11:20-0400 Systolic blood pressure 122 mm[Hg] Deb Matthew MD Work Phone: [facility] 12-23-2024 14:09-0400 Body height 175.26 cm Dank Campo MD Work Phone: [facility] 12-23-2024 14:09-0400 Body mass index (BMI) [Ratio] 37.6 kg/m2 Dank Campo MD Work Phone: [facility] 12-23-2024 14:09-0400 Body weight 115.66 kg Dank Campo MD Work Phone: [facility] 12-23-2024 14:09-0400 Diastolic blood pressure 67 mm[Hg] Dank Campo MD Work Phone: [facility] 12-23-2024 14:09-0400 Heart rate 83 /min Dank Campo MD Work Phone: [facility] 12-23-2024 14:09-0400 Systolic blood pressure 101 mm[Hg] Dank Campo MD Work Phone: [facility] 10-27-2024 10:30-0400 Body height 175.3 cm Hanna Butcher MD Work Phone: [facility] [employer] [facility] 10-27-2024 10:30-0400 Body mass index (BMI) [Ratio] 38.02 kg/m2 Hanna Butcher MD Work Phone: [facility] 10-27-2024 10:30-0400 Body weight 116.85 kg Hanna Butcher MD Work Phone: [facility] 10-27-2024 10:30-0400 Diastolic blood pressure 73 mm[Hg] Hanna Butcher MD Work Phone: [facility] 10-27-2024 10:30-0400 Heart rate 79 /min Hanna Butcher MD Work Phone: [facility] 10-27-2024 10:30-0400 SaO2% (BldA) [Mass fraction] 97 % Hanna Butcher MD Work Phone: [facility] 10-27-2024 10:30-0400 Systolic blood pressure 114 mm[Hg] Hanna Butcher MD Work Phone: [facility] 2024 15:05-0400 Body height 175.26 cm Dank Campo MD Work Phone: [facility] 2024 15:05-0400 Body mass index (BMI) [Ratio] 37.6 kg/m2 Dank Campo MD Work Phone: [facility] 2024 15:05-0400 Body weight 115.66 kg Dank Campo MD Work Phone: [facility] 07-31-2024 10:32-0500 Body height 177.8 cm Ashli Petznick DO Work Phone: [facility] 07-31-2024 10:32-0500 Body mass index (BMI) [Ratio] 37.02 kg/m2 Ashli Petznick DO Work Phone: [facility] 07-31-2024 10:32-0500 Body temperature 97.9 [degF] Ashli Petznick DO Work Phone: [facility] 07-31-2024 10:32-0500 Body weight 117.03 kg Ashli Petznick DO Work Phone: [facility] 07-31-2024 10:32-0500 Diastolic blood pressure 70 mm[Hg] Ashli Petznick DO Work Phone: [facility] 07-31-2024 10:32-0500 Heart rate 78 /min Ashli Petznick DO Work Phone: [facility] 07-31-2024 10:32-0500 SaO2% (BldA) [Mass fraction] 97 % Ashli Petznick DO Work Phone: [facility] 07-31-2024 10:32-0500 Systolic blood pressure 108 mm[Hg] Ashli Petznick DO Work Phone: [facility] 07-30-2024 14:11-0500 Body height 175.26 cm [facility] 07-30-2024 14:11-0500 Body mass index (BMI) [Ratio] 38.4 kg/m2 [facility] 07-30-2024 14:11-0500 Body weight 117.93 kg [facility] 05-29-2024 14:51-0500 Body height 177.8 cm Dexter Krishnamurthy DPM Work Phone: [facility] 05-29-2024 14:51-0500 Body mass index (BMI) [Ratio] 36.88 kg/m2 Dexter Krishnamurthy DPM Work Phone: [facility] 05-29-2024 14:51-0500 Body weight 116.57 kg Dexter Krishnamurthy DPM Work Phone: [facility] 05-28-2024 07:38-0500 Body height 177.8 cm Dank Campo MD Work Phone: [facility] 05-28-2024 07:38-0500 Body mass index (BMI) [Ratio] 36.88 kg/m2 Dank Campo MD Work Phone: [facility] 05-28-2024 07:38-0500 Body temperature 97.11 [degF] Dank Campo MD Work Phone: [facility] 05-28-2024 07:38-0500 Body weight 116.57 kg Dank Campo MD Work Phone: [facility] 05-28-2024 07:38-0500 Diastolic blood pressure 72 mm[Hg] Dank Campo MD Work Phone: [facility] 05-28-2024 07:38-0500 Heart rate 104 /min Dank Campo MD Work Phone: [facility] 05-28-2024 07:38-0500 Respiratory rate 18 /min Dank Cmapo MD Work Phone: [facility] 05-28-2024 07:38-0500 SaO2% (BldA) [Mass fraction] 97 % Dank Campo MD Work Phone: [facility] 05-28-2024 07:38-0500 Systolic blood pressure 136 mm[Hg] Dank Campo MD Work Phone: [facility] 04-29-2024 10:46-0500 Body height 177.8 cm Ashli Petznick DO Work Phone: [facility] 04-29-2024 10:46-0500 Body mass index (BMI) [Ratio] 35.61 kg/m2 Ashli Petznick DO Work Phone: [facility] 04-29-2024 10:46-0500 Body temperature 96.1 [degF] Ashli Petznick DO Work Phone: [facility] 04-29-2024 10:46-0500 Body weight 112.58 kg Ashli Petznick DO Work Phone: [facility] 04-29-2024 10:46-0500 Diastolic blood pressure 78 mm[Hg] Ashli Petznick DO Work Phone: [facility] 04-29-2024 10:46-0500 Heart rate 84 /min Ashli Petznick DO Work Phone: [facility] 04-29-2024 10:46-0500 SaO2% (BldA) [Mass fraction] 97 % Ashli Petznick DO Work Phone: [facility] 04-29-2024 10:46-0500 Systolic blood pressure 124 mm[Hg] Ashli Ross DO Work Phone: [facility] 04-15-2024 09:08-0400 Body height 175.26 cm [facility] 04-15-2024 09:08-0400 Body mass index (BMI) [Ratio] 36.1 kg/m2 [facility] 04-15-2024 09:08-0400 Body weight 111.13 kg [facility] 04-08-2024 10:00-0400 Body height 177.8 cm Rebecca Dias PA Work Phone: [facility] 04-08-2024 10:00-0400 Body mass index (BMI) [Ratio] 35.73 kg/m2 Rebecca Dias PA Work Phone: [facility] 04-08-2024 10:00-0400 Body weight 112.95 kg Rebecca Dias PA Work Phone: [facility] 03-18-2024 08:28-0400 Body height 177.8 cm Rebecca FREY Work Phone: [facility] 03-18-2024 08:28-0400 Body mass index (BMI) [Ratio] 35.73 kg/m2 Rebecca FREY Work Phone: [facility] 03-18-2024 08:28-0400 Body weight 112.95 kg Rebecca Dias PA Work Phone: [facility] 03-17-2024 10:19-0400 Body height 175.26 cm [facility] 03-17-2024 10:19-0400 Body mass index (BMI) [Ratio] 37 kg/m2 [facility] 03-17-2024 10:19-0400 Body weight 114 kg [facility] 02-25-2024 10:29-0400 Body height 175.3 cm Hanna Butcher MD Work Phone: [facility] [employer] [facility] 02-25-2024 10:29-0400 Body mass index (BMI) [Ratio] 37.01 kg/m2 Hanna Butcher MD Work Phone: [facility] 02-25-2024 10:29-0400 Body weight 113.67 kg Hanna Butcher MD Work Phone: [facility] 02-25-2024 10:29-0400 Diastolic blood pressure 60 mm[Hg] Hanna Butcher MD Work Phone: [facility] 02-25-2024 10:29-0400 Heart rate 77 /min Hanna Butcher MD Work Phone: [facility] 02-25-2024 10:29-0400 SaO2% (BldA) [Mass fraction] 98 % Hanna Butcher MD Work Phone: [facility] 02-25-2024 10:29-0400 Systolic blood pressure 108 mm[Hg] Hanna Butcher MD Work Phone: [facility] 02-04-2024 11:45-0400 Diastolic blood pressure 74 mm[Hg] Peterson PETERSEN [facility] 02-04-2024 11:45-0400 Heart rate 66 /min Peterson PETERSEN [facility] 02-04-2024 11:45-0400 Respiratory rate 16 /min Peterson PETERSEN [facility] 02-04-2024 11:45-0400 Systolic blood pressure 116 mm[Hg] Peterson PETERSEN [facility] 12-13-2023 22:34-0400 Body height 175.3 cm [facility] 12-13-2023 22:34-0400 Body mass index (BMI) [Ratio] 36.77 kg/m2 [facility] 12-13-2023 22:34-0400 Body weight 112.[address] 08-15-2023 13:35-0500 Diastolic blood pressure 60 mm[Hg] Gregoria Ralph DERMATOLOGIST MANAGING PARTNER-SEWER DIGGER Work Phone: [facility] [employer] [facility] 08-15-2023 13:35-0500 Systolic blood pressure 107 mm[Hg] Gregoriamayh Ralph DERMATOLOGIST MANAGING PARTNER-SEWER DIGGER Work Phone: [facility] 08-15-2023 13:33-0500 Body height 175.3 cm Gregoriamyah Ralph DERMATOLOGIST MANAGING PARTNER-SEWER DIGGER Work Phone: [facility] 08-15-2023 13:33-0500 Body mass index (BMI) [Ratio] 36.77 kg/m2 Gregoriamyah Ralph DERMATOLOGIST MANAGING PARTNER-SEWER DIGGER Work Phone: [facility] 08-15-2023 13:33-0500 Body weight 112.95 kg Gregoriamyah Ralph DERMATOLOGIST MANAGING PARTNER-SEWER DIGGER Work Phone: [facility] 08-15-2023 13:33-0500 Heart rate 81 /min Gregoriamyah Ralph DERMATOLOGIST MANAGING PARTNER-SEWER DIGGER Work Phone: [facility] [employer] [facility] 08-15-2023 13:33-0500 SaO2% (BldA) [Mass fraction] 95 % Gregoriamyah Ralph DERMATOLOGIST MANAGING PARTNER-SEWER DIGGER Work Phone: [facility] 07-30-2023 11:16-0500 Body height 177.8 cm Ashli Petznick DO Work Phone: [facility] [employer] 07-30-2023 11:16-0500 Body mass index (BMI) [Ratio] 36.16 kg/m2 Ashli Petznick DO Work Phone: [facility] [employer] 07-30-2023 11:16-0500 Body temperature 98.01 [degF] Ashli Petznick DO Work Phone: [facility] [employer] 07-30-2023 11:16-0500 Body weight 114.31 kg Ashli Petznick DO Work Phone: [facility] 07-30-2023 11:16-0500 Diastolic blood pressure 62 mm[Hg] Ashli Petznick DO Work Phone: [facility] 07-30-2023 11:16-0500 Heart rate 66 /min Ashli Petznick DO Work Phone: [facility] 07-30-2023 11:16-0500 SaO2% (BldA) [Mass fraction] 97 % Ashli Petznick DO Work Phone: [facility] 07-30-2023 11:16-0500 Systolic blood pressure 116 mm[Hg] Ashli Petznick DO Work Phone: [facility] 07-17-2023 09:22-0500 Diastolic blood pressure 73 mm[Hg] MD Dank Campo Work Phone: [facility] 07-17-2023 09:22-0500 Heart rate 70 /min MD Dank Campo Work Phone: [facility] 07-17-2023 09:22-0500 Respiratory rate 18 /min MD Dank Campo Work Phone: [facility] 07-17-2023 09:22-0500 SaO2% (BldA) [Mass fraction] 97 % MD Dank Campo Work Phone: [facility] 07-17-2023 09:22-0500 Systolic blood pressure 173 mm[Hg] MD Dank Campo Work Phone: [facility] 07-17-2023 09:20-0500 Body height 177.8 cm MD Dank Campo Work Phone: [facility] 07-17-2023 09:20-0500 Body weight 111.13 kg MD Dank Campo Work Phone: [facility] 04-27-2023 12:40-0500 Diastolic blood pressure 68 mm[Hg] MD Dank Campo Work Phone: [facility] 04-27-2023 12:40-0500 Heart rate 75 /min MD Dank Campo Work Phone: [facility] 04-27-2023 12:40-0500 Respiratory rate 16 /min MD Dank Campo Work Phone: [facility] 04-27-2023 12:40-0500 SaO2% (BldA) [Mass fraction] 97 % MD Dank Campo Work Phone: [facility] 04-27-2023 12:40-0500 Systolic blood pressure 110 mm[Hg] MD Dank Campo Work Phone: [facility] 04-27-2023 10:29-0500 Body height 177.8 cm MD Dank Campo Work Phone: [facility] 04-27-2023 10:29-0500 Body weight 113.39 kg MD Dank Campo Work Phone: [facility] 04-10-2023 14:00-0400 Body height 177.8 cm Imad Asaad Other [employer] Other 04-10-2023 14:00-0400 Body mass index (BMI) [Ratio] 36.3 kg/m2 Imad Asaad Other [employer] Other 04-10-2023 14:00-0400 Body weight 114.76 kg Imad Asaad Other [employer] Other 04-10-2023 14:00-0400 Diastolic blood pressure 68 mm[Hg] Imad Asaad Other [employer] Other 04-10-2023 14:00-0400 Systolic blood pressure 113 mm[Hg] Imad Asaad Other [employer] Other 02-12-2023 09:46-0400 Blood Pressure Location Peterson PETERSEN [facility] 02-12-2023 09:46-0400 Diastolic blood pressure 90 mm[Hg] Peterson PETERSEN [facility] 02-12-2023 09:46-0400 Heart rate 68 /min Peterson PETERSEN [facility] 02-12-2023 09:46-0400 Respiratory rate 16 /min Peterson PETERSEN [facility] 02-12-2023 09:46-0400 Systolic blood pressure 138 mm[Hg] Peterson PETERSEN [facility] 07-24-2022 13:52-0500 Diastolic blood pressure 78 mm[Hg] MD Dank Campo Work Phone: [facility] 07-24-2022 13:52-0500 Heart rate 71 /min MD Dank Campo Work Phone: [facility] 07-24-2022 13:52-0500 Respiratory rate 16 /min MD Dank Campo Work Phone: [facility] 07-24-2022 13:52-0500 SaO2% (BldA) [Mass fraction] 96 % MD Dank Campo Work Phone: [facility] 07-24-2022 13:52-0500 Systolic blood pressure 136 mm[Hg] MD Dank Campo Work Phone: [facility] 07-24-2022 12:29-0500 Body height 177.8 cm MD Dank Campo Work Phone: [facility] 07-24-2022 12:29-0500 Body temperature 98 [degF] MD Dank Campo Work Phone: [facility] 07-24-2022 12:29-0500 Body weight 115.66 kg MD Dank Campo Work Phone: [facility] 07-20-2022 10:00-0500 Body height 177.8 cm Imad Asaad Other [employer] Other 07-20-2022 10:00-0500 Body mass index (BMI) [Ratio] 36.73 kg/m2 Imad Asaad Other [employer] Other 07-20-2022 10:00-0500 Body weight 116.12 kg Imad Asaad Other [employer] Other 07-20-2022 10:00-0500 Diastolic blood pressure 96 mm[Hg] Imad Asaad Other [employer] Other 07-20-2022 10:00-0500 Systolic blood pressure 170 mm[Hg] Imad Asaad Other [facility] [employer] Other 02-03-2022 08:29-0400 Blood Pressure Location Peterson PETERSEN [facility] 02-03-2022 08:29-0400 Diastolic blood pressure 88 mm[Hg] Peterson PETERSEN [facility] 02-03-2022 08:29-0400 Heart rate 75 /min Petersonpercy PETERSEN [facility] 02-03-2022 08:29-0400 Respiratory rate 16 /min Peterson PETERSEN [facility] 02-03-2022 08:29-0400 Systolic blood pressure 138 mm[Hg] Peterson NICOLA [facility] Encounters Encounter Date Encounter Type Care Provider Facility Start: 02-09-2025 ambulatory Peterson PETERSEN Facili ty:[facility] Start: 02-02-2025 End: 02-02-2025 Telephone encounter Aliza Rec[facility] Start: 01-28-2025 End: 01-28-2025 Bamboo flowsheet Deb [facility] Start: 01-28-2025 End: 01-28-2025 BamWishabio flowsheet Deb Matthew MD [facility] Start: 01-28-2025 End: 01-28-2025 Office outpatient new 45 minutes Deb Matthew MD Work Phone: [facility] Comment on above: Type 2 diabetes yoselin itus with hyperglycemia, with long-term current use of insulin (HCC) (Primary Dx); Primary hypertension ; Insulin long-term use (HCC); Hyperlipemia, mixed ; Encounter for dietary consultation; Class 2 severe obesity due to excess calories with serious comorbidity and body mass index (BMI) of 38.0 to 38.9 in adult ([facility]-H[facility]); Stage 3b chronic kidney disease ([facility]); Type 2 diabetes mellitus with diabetic polyneuropathy, with long-term current use of insulin (HCC) Start: 01-28-2025 End: 01-28-2025 ambulatory DEB MATTHEW Not Available Start: 12-23-2024 End: 12-23-2024 ambulatory Dank Campo MD Work Phone: [facility] Work Phone: Start: 12-23-2024 End: 12-23-2024 Patient encounter procedure Rich Scott [facility] Work Phone: Start: 12-02-2024 End: 12-02-2024 ambulatory HANNA BUTCHER [facility] Start: 12-02-2024 End: 12-02-2024 Office outpatient visit 15 minutes Hanna Butcher MD Work Phone: [facility] Comment on above: SOB (shortness of br eath) (Primary Dx); Personal history of tobacco use, presenting hazards to health; Obstructive sleep apnea syndrome Start: 11-17-2024 End: 11-17-2024 ambulatory DANK CAMPO [facility] Start: 10-27-2024 End: 10-27-2024 Office outpatient visit 15 minutes Hanna Butcher MD Work Phone: [facility] Comment on above: SOB (shortness of br eath) (Primary Dx) Start: 10-27-2024 End: 10-27-2024 ambulatory HANNA BUTCHER [facility] Start: 10-21-2024 End: 10-21-2024 Telephone encounter Nadiya Jacobson [facility] Start: 09-24-2024 End: 09-24-2024 ambulatory DEXTER KRISHNAMURTHY Not Available Start: 09-24-2024 End: 09-24-2024 Office outpatient visit 15 minutes Dexter Krishnamurthy DP Work Phone: [facility] Comment on above: Diabetic polyneuropa thy associated with type 2 diabetes mellitus (CMS/HCC) (Primary Dx); Encounter for long-term (current) use of insulin (CMS/HCC); Chronic painful diabetic neuropathy (CMS/HCC); 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 Start: 2024 End: 2024 ambulatory Dank Campo MD Work Phone: [facility] Work Phone: Start: 2024 End: 2024 Patient encounter procedure Dank Campo MD Work Phone: [facility] Work Phone: Start: 08-04-2024 End: 08-04-2024 ambulatory [...] long-term current use of insulin ([facility]) ([facility]); Type 2 diabetes mellitus with hyperglycemia, with long-term current use of insulin ([facility]/HCC) Start: 07-30-2024 End: 07-30-2024 ambulatory Dank Campo MD Work Phone: [facility] Work Phone: Start: 07-30-2024 End: 07-30-2024 Patient encounter procedure [facility] Work Phone: Start: 07-23-2024 End: 07-23-2024 Bamboo [...] 07-21-2024 End: 07-21-2024 Bamboo flowsheet Kaden Hickman [employer]ING [employer]ATION [employer] [facility] Start: 07-21-2024 End: 07-21-2024 Bamboo flowsheet Kaden Hickman [employer]ING [employer]ATION [employer] [facility] Start: 07-21-2024 End: 07-21-2024 [facility]ulatory [facility] Start: 07-14-2024 End: 07-14-2024 ambulatory Piedadrius Chandler [facility] Start: 07-07-2024 End: 07-07-2024 Bamboo flowsheet Maureen Thompson [employer]ING [employer]ATION [employer] [facility] Start: 07-07-2024 End: 07-07-2024 Bamboo flowsheet Maureenrah Thompson [employer]ING [employer]ATION [employer] [facility] Start: 07-07-2024 End: 07-07-2024 ambulatory Maureen Thompson [employer] [facility] Comment on above: Left [...] 06-26-2024 End: 06-26-2024 Bamboo flowsheet Kaden Bridger [employer]ING [employer]ATION [employer] [facility] Start: 06-26-2024 End: 06-26-2024 Bamboo flowsheet Kaden Bridger PU[employer]ING STATION ENGINE[employer] [facility] Start: 06-26-2024 End: 06-26-2024 ambulatory Kaden Bridger [employer]ING [employer] [facility] Comment on above: Left [...] Start: 06-05-2024 End: 06-05-2024 ambulatory Nanda Petr [employer] [facility] Comment on above: Left shoulder pain, unspecified chronicity (Primary Dx); S/P arthroscopy of left shoulder Start: 06-03-2024 End: 06-03-2024 Telephone encounter Dank Campo MD Work Phone: [facility] Start: 06-02-2024 End: 06-02-2024 Bamboo flowsheet Kaden Hickman PU[employer]ING STATION [employer]INE[employer] [facility] Start: 06-02-2024 End: 06-02-2024 Bamboo flowsheet Kaden Hickman PUMPING STATION ENGINE[employer] [facility] Start: 06-02-2024 End: 06-02-2024 ambulatory Kaden Hickman [employer]ING [employer]ATION [employer] [facility] Comment on above: Left [...] 05-26-2024 End: 05-26-2024 Bamboo flowsheet Kaden Hickman PU[employer]ING [employer]ATION [employer]INE[employer] [facility] Start: 05-26-2024 End: 05-26-2024 Bamboo flowsheet Kaden Hickman PU[employer]ING STATION ENGINE[employer] [facility] Start: 05-26-2024 End: 05-26-2024 ambulatory Kaden Hickman [employer]ING [employer]ATION [employer] [facility] Comment on above: S/P arthroscopy of l eft shoulder (Primary Dx); Left shoulder pain, unspecified chronicity Start: 05-19-2024 End: 05-19-2024 ambulatory Kaden Hickman [employer]ING [employer] [facility] Comment on above: S/P [...] End: 05-09-2024 Bamboo flowsaaliyah FREY Work Phone: [facility] Start: 05-09-2024 End: 05-09-2024 Bamboo flowsaaliyah FREY Work Phone: [facility] Start: 05-09-2024 End: 05-09-2024 Postop follow up visit related to original px Rebecca FREY Work Phone: [facility] Comment on above: S/P arthroscopy of l eft shoulder (Primary Dx) Start: 05-09-2024 End: 05-09-2024 ambulatory REBECCA DIAS Not Available Start: 04-29-2024 End: 04-29-2024 Office outpatient visit 25 minutes Ashli Ross DO Work Phone: [facility] Comment on above: Class 2 severe obesi ty due to excess calories with serious comorbidity and body mass index (BMI) of 35.0 to 35.9 in adult ([facility]/HCC) (Primary Dx); Type 2 diabetes mellitus with diabetic polyneuropathy, with long-term current use of insulin ([facility]); Type 2 diabetes mellitus with stage 3a chronic kidney disease, with long-term current use of insulin ([facility]) ([facility]); Long-term insulin use ([facility]) Start: 04-29-2024 End: 04-29-2024 ambulatory ASHLI ROSS Not Available Start: 04-24-2024 End: 04-24-2024 Refill Fredy Boswell NP Work Phone: [facility] Comment on above: Internal derangement of left shoulder (Primary Dx) Start: 04-23-2024 End: 04-23-2024 Telephone encounter Dank Campo MD Work Phone: [facility] Start: 04-21-2024 End: 04-21-2024 ambulatory Roma Lopez MD Facility:[facility] Start: 04-18-2024 End: 04-18-2024 Clinisync Result Encounter Generic External Data Provider [facility] External Department Unsolicited Start: 04-18-2024 End: 04-18-2024 Clinisync Result Encounter Generic External Data Provider [facility] External Department Unsolicited Start: 04-15-2024 End: 04-15-2024 ambulatory [facility] Work Phone: Start: 04-15-2024 End: 04-15-2024 Patient encounter procedure [facility] Work Phone: Start: 04-08-2024 End: 04-08-2024 Bamboo flowsheet Rebecca Dias PA Work Phone: [facility] Start: 04-08-2024 End: 04-08-2024 Bamboo flowsheet Rebecca FREY Work Phone: [facility] Start: 04-08-2024 End: 04-08-2024 Patient encounter procedure Rebecca FREY Work Phone: [facility] Comment on above: Pre-op examination ( Primary Dx); Preop examination Start: 04-08-2024 End: 04-08-2024 Preprocedural examination done Rebecca FREY Work Phone: [facility] Work Phone: Start: 04-08-2024 End: 04-08-2024 ambulatory REBECCA DIAS Not Available Start: 03-24-2024 End: 03-25-2024 Refill Fredy Boswell NP Work Phone: [facility] Comment on above: Internal derangement of left shoulder (Primary Dx) Start: 03-18-2024 End: 03-18-2024 Bamboo flowsheet Rebecca FREY Work Phone: [facility] Start: 03-18-2024 End: 03-18-2024 Bamboo flowsheet Rebecca FREY Work Phone: [facility] Start: 03-18-2024 End: 03-18-2024 External Result Encounter Rebecca FREY Work Phone: [facility] External Department Unsolicited Start: 03-18-2024 End: 03-18-2024 Orders Only Rebecca FREY Work Phone: [facility] Comment on above: Encounter for other preprocedural examination Start: 03-18-2024 End: 03-18-2024 Patient encounter status Rebecca FREY Work Phone: [facility] Start: 03-18-2024 End: 03-18-2024 Telephone encounter Rebecca FREY Work Phone: [facility] Start: 03-18-2024 Encounter for other preprocedural examination D[facility] Start: 03-18-2024 End: 03-18-2024 Patient encounter procedure Rebecca FREY Work Phone: [facility] Comment on above: Preop examination (P rimary Dx) Start: 03-18-2024 End: 03-18-2024 Preprocedural examination done Rebecca FREY Work Phone: [facility] Start: 03-18-2024 End: 03-18-2024 ambulatory [facility] Start: 03-17-2024 End: 03-17-2024 Telephone encounter Ashli Ross DO Work Phone: [facility] SWS FM 230 Start: 03-17-2024 End: 03-17-2024 ambulatory [facility] Work Phone: Start: 03-17-2024 End: 03-17-2024 Patient encounter procedure [facility] Gastroenterology Work Phone: Start: 03-12-2024 End: 03-12-2024 ambulatory [facility] Start: 03-10-2024 End: 03-10-2024 ambulatory Roma Lopez MD Facility:[facility] Start: 03-03-2024 End: 03-03-2024 Office outpatient visit 25 minutes Jr. Johanne Hdez DO Work Phone: [facility] Comment on above: Internal derangement of left shoulder (Primary Dx); Acute pain of left shoulder Start: 03-03-2024 End: 03-03-2024 ambulatory JOHANNE MURILLO Not Available Start: 03-03-2024 End: 03-03-2024 Juan Jose Hdez DO Work Phone: [facility] Start: 03-03-2024 End: 03-03-2024 Juan Jose Hdez DO Work Phone: [facility] Start: 02-28-2024 End: 02-28-2024 Telephone encounter [facility] Butcher [facility] Start: 02-25-2024 End: 02-25-2024 Office outpatient visit 15 minutes Hanna Butcher MD Work Phone: [facility] Comment on above: Obstructive sleep ap toñito syndrome (Primary Dx); Personal history of tobacco use, presenting hazards to health Start: 02-25-2024 End: 02-25-2024 ambulatory HANNA BUTCHER [facility] Start: 02-04-2024 End: 02-04-2024 Telephone encounter Dexter Krishnamurthy DP Work Phone: [facility] Comment on above: Advice Only (Self Pa y Shoes) Start: 02-04-2024 End: 02-04-2024 ambulatory Peterson PETERSEN Facility:[facility] Start: 02-04-2024 End: 02-04-2024 Patient encounter procedure Peterson PETERSEN [facility] Start: 01-31-2024 End: 01-31-2024 ambulatory ASHLI ROSS Not Available Start: 01-28-2024 End: 01-28-2024 ambulatory Peterson PETERSEN Facility:[facility] Start: 01-28-2024 End: 01-28-2024 Patient encounter procedure Peterson PETERSEN [facility] Start: 01-03-2024 End: 01-03-2024 Telephone encounter Oskar Contreras MD Work Phone: [facility] Start: 12-13-2023 End: 12-15-2023 ambulatory GREGORIA RALPH [facility] Comment on above: Obstructive sleep ap toñito syndrome; CSA (central sleep apnea) Start: 12-06-2023 End: 12-06-2023 Orders Only Gregoria Ralph DERMATOLOGIST MANAGING PARTNER-SEWER DIGGER Work Phone: [facility] Pulmonary/Sleep Medicine Comment on above: Obstructive sleep ap toñito syndrome (Primary Dx) Start: 12-05-2023 End: 12-05-2023 Telephone encounter Aliza Crenshaw Pulmonary/Sleep Medicine Start: 11-05-2023 End: 11-05-2023 ambulatory Roma Lopez MD Facility:[facility] Start: 10-30-2023 End: 10-30-2023 ambulatory Jyoti Roth Facility:[facility] Start: 10-15-2023 End: 10-15-2023 ambulatory Roma Lopez MD Facility:[facility] Start: 10-01-2023 End: 10-01-2023 ambulatory Roma Lopez MD Facility:[facility] Start: 08-27-2023 Telephone encounter Aliza Crenshaw Pulmonary[facility]Sleep Medicine Start: 08-22-2023 End: 08-22-2023 ambulatory Dank Campo Facility:[facility] Start: 08-20-2023 End: 08-20-2023 ambulatory Dank Campo Facility:[facility] Start: 08-17-2023 Telephone encounter Gregoria shields DERMATOLOGIST MANAGING PARTNER-SEWER DIGGER Work Phone: [facility] - Sleep Disorders Comment on above: Sleep Lab (CPAP) Start: 08-15-2023 End: 08-15-2023 Office outpatient visit 25 minutes Gregoria Ralph DERMATOLOGIST MANAGING PARTNER-SEWER DIGGER Work Phone: [facility] Comment on above: Personal history of tobacco use, presenting hazards to health (Primary Dx); Obstructive sleep apnea syndrome; CSA (central sleep apnea) Start: 08-09-2023 End: 08-09-2023 Patient encounter procedure MD Dank Campo Work Phone: [facility]Pre[facility]Surgical [facility] Work Phone: Start: 08-09-2023 End: 08-09-2023 ambulatory MD Dank Campo Work Phone: [facility] Work Phone: Start: 08-02-2023 Telephone [...] (BMI) of 36.0 to 36.9 in adult ([facility]) (Primary Dx); Type 2 diabetes mellitus with diabetic polyneuropathy, with long-term current use of insulin ([facility]) Start: 07-24-2023 End: 07-24-2023 Patient encounter procedure MD Dank Campo Work Phone: [facility]-XRay [place] Work Phone: Start: 07-17-2023 End: 07-17-2023 ambulatory MD Dank Campo Work Phone: [facility] Work Phone: Start: 07-17-2023 End: 07-17-2023 Patient encounter procedure MD Dank Campo Work Phone: [facility]-MRI [address] [place] Work Phone: Start: 06-26-2023 End: 06-26-2023 ambulatory MD Dank Campo Work Phone: [facility] Work Phone: Start: 06-26-2023 End: 06-26-2023 Patient encounter procedure MD Dank Campo Work Phone: [facility]-MRI [address] Work Phone: Start: 04-27-2023 End: 04-27-2023 Admission to same day surgery center MD Dank Campo Work Phone: [facility]-Digestive Health Work Phone: Start: 04-27-2023 End: 04-27-2023 ambulatory MD Dank Campo Work Phone: [facility] Work Phone: Start: 04-10-2023 End: 04-10-2023 ambulatory Imad Asaad Other [employer] Other Start: 04-10-2023 Office outpatient ne w 45 minutes Imad Asaad [facility] Start: 03-20-2023 End: 03-20-2023 ambulatory Imad Asaad Other [employer] Other Start: 03-20-2023 Telephone encounter Imad Asaad [facility] Start: 02-12-2023 End: 02-12-2023 ambulatory Peterson PETERSEN Facility:[facility] Start: 02-12-2023 End: 02-12-2023 Patient encounter procedure Peterson PETERSEN [facility] Start: 02-06-2023 End: 02-06-2023 Lab Drop off [facility] Start: 02-06-2023 End: 02-06-2023 ambulatory ROSALVA MURO Facility:[facility] Start: 02-06-2023 End: 02-06-2023 Patient encounter procedure DEJUAN PETERSEN [facility] Start: 10-17-2022 End: 10-18-[address] DANK CAMPO Facility: Start: 09-20-2022 End: 09-20-2022 ambulatory Imad Asaad Other [employer] Other Start: 09-20-2022 Telephone encounter Imad Asaad [facility] Start: 09-14-2022 End: 09-14-[address] DANK CAMPO Facility:[facility] Start: 09-12-2022 End: 09-13-[address] DANK CAMPO Facility:[facility] Start: 07-24-2022 Telephone encounter Imad Asaad [facility] Start: 07-24-2022 End: 07-24-2022 Admission to same day surgery center MD Dank Campo Work Phone: [facility]-Dig[facility] Work Phone: Start: 07-24-2022 End: 07-24-2022 ambulatory MD Dank Campo Work Phone: [facility] Work Phone: Start: 07-20-2022 End: 07-20-2022 ambulatory Imad Asaad Other [employer] Other Start: 07-20-2022 Patient encounter procedure Imad Asaad [facility] Start: 05-10-2022 End: 05-11-[address] DANK CAMPO Facility:[facility] Start: 04-14-2022 End: 04-15-[address] SORIN SHORE Facility:[facility] Start: 02-03-2022 End: 02-03-2022 Patient encounter procedure Peterson PETERSEN [facility] Start: 01-30-2022 End: 01-31-2022 ambulatory [...] 04-27-2033 Screening for malignant neoplasm of colon [facility] Start: 01-20-2031 DTaP,Tdap and Td Vaccines (3 - Td or Tdap) DTaP,Tdap and Td Vaccines (3 - Td or Tdap) [facility] Start: 01-20-2031 DTaP,Tdap and Td Vaccines (4 - Td or Tdap) DTaP,Tdap and Td Vaccines (4 - Td or Tdap) [facility] Start: 02-10-2030 Screening for malignant neoplasm of colon [facility] Start: 10-21-2026 Glaucoma screening Diabetes: Retinopathy Screening [facility] Start: 10-27-2025 Adult BMI Screening Adult BMI Screening [facility] Start: 10-27-2025 Tobacco Screening Tobacco Screening [facility] Start: 08-27-2025 Glaucoma screening Diabetes: Retinopathy Screening [facility] Start: 05-25-2025 End: 05-25-2025 Patient encounter procedure 05/25/2025 9:45 AM EST Office Visit [facility] [address] [place] [address] Hanna Butcher MD [address] [facility] [address] [place] [address] [facility] Start: 04-30-2025 Hemoglobin A1c measurement Diabetes: Hemoglobin A1C [facility] Start: 04-29-2025 End: 04-29-2025 Patient encounter procedure 04/29/2025 11:10 AM EST Office Visit [facility] [address] [place] [address] Deb Matthew MD [address] [place] [address] [facility] Start: 03-09-2025 End: 03-09-2025 Patient encounter procedure 03/09/2025 9:00 AM EDT [facility] [address] [place] [address] Hanna Butcher MD [address] [facility] [address] [place] [address] [facility] Start: 02-24-2025 Adult BMI Screening Adult BMI Screening [facility] Start: 02-24-2025 Tobacco Screening Tobacco Screening [facility] Start: 02-16-2025 Influenza vaccination [facility] Start: 01-28-2025 End: 01-28-2026 25-hydroxyvitamin D3 [Mass/volume] in Serum or Plasma Vitamin D 25 hydroxy Total Lab Routine Type 2 diabetes mellitus with hyperglycemia, with long-term current use of insulin (HCC) Expected: 01/28/2025 (Approximate), Expires: 01/28/2026 [facility] Comment on above: Expected: 01/28/2025 (Approximate), Expi res: 01/28/2026 Start: 01-28-2025 End: 01-28-2026 C-peptide C-peptide Lab Routine Type 2 diabetes mellitus with hyperglycemia, with long-term current use of insulin (HCC) Expected: 01/28/2025 (Approximate), Expires: 01/28/2026 [facility] Work Phone: Comment on above: Expected: 01/28/2025 (Approximate), Expi res: 01/28/2026 Start: 01-28-2025 End: 01-28-2026 Lipid 1996 panel - Serum or Plasma Lipid panel Lab Routine Type 2 diabetes mellitus with hyperglycemia, with long-term current use of insulin (HCC) Expected: 01/28/2025 (Approximate), Expires: 01/28/2026 [facility] Comment on above: Expected: 01/28/2025 (Approximate), Expi res: 01/28/2026 Start: 01-28-2025 End: 01-28-2026 Microalbumin/Creatinine panel in random Urine Microalbumin / creatinine urine ratio Lab Routine Type 2 diabetes mellitus with hyperglycemia, with long-term current use of insulin (HCC) Expected: 01/28/2025 (Approximate), Expires: 01/28/2026 [facility] Comment on above: Expected: 01/28/2025 (Approximate), Expi res: 01/28/2026 Start: 01-28-2025 End: 01-28-2026 Renal function panel Renal function panel Lab Routine Type 2 diabetes mellitus with hyperglycemia, with long-term current use of insulin (HCC) Expected: 01/28/2025 (Approximate), Expires: 01/28/2026 [facility] Comment on above: Expected: 01/28/2025 (Approximate), Expi res: 01/28/2026 Start: 01-28-2025 End: 01-28-2025 Patient encounter procedure 01/28/2025 11:10 AM EDT Office Visit [facility] [address] [place] [address] Deb Matthew MD [address] [place] [address] Type 2 diabetes mellitus with hyperglycemia, with long-term current use of insulin (HCC) [facility] Comment on above: Type 2 diabetes mellitus with hyperglyce jessica, with long-term current use of insulin (HCC) Start: 12-12-2024 Adult BMI Screening Adult BMI Screening [facility] Start: 12-02-2024 End: 12-02-2024 Patient encounter procedure 12/02/2024 12:45 PM EDT Office Visit [facility] [address] [place] [address] Hanna Butcher MD [address] [facility] [address] [place] [address] [facility] Start: 10-30-2024 End: 10-30-2024 Patient encounter procedure 10/30/2024 11:15 AM EDT Office Visit [facility] [address] [place] [address] RasheedaRah penalozarafa Scott, DO [address] [place] [address] [facility] 230 Start: 10-28-2024 Hemoglobin A1c measurement Diabetes: Hemoglobin A1C [facility] Start: 10-21-2024 End: 10-21-2025 XR Chest PA and Lateral X-ray chest 2 views Imaging Routine SOB (shortness of breath) Expected: 10/21/2024, Expires: 10/21/2025 [facility] Work Phone: Comment on above: Expected: 10/21/2024, Expires: Start: 09-03-2024 Urine screening for protein Diabetes: Urine Protein Screening [facility] Start: 08-27-2024 End: 08-27-2024 Patient encounter procedure 08/27/2024 7:30 AM EDT Office Visit [facility] [address] [place] [address] Dank Campo MD [address] [place] [address] [facility] Start: 08-22-2024 End: 08-22-2024 ambulatory 08/22/2024 8:00 AM EST Treatment [facility] [address] [facility] [place] [place] [address] Alma Berkowitz, PT [facility] Start: 08-18-2024 End: 08-18-2024 ambulatory 08/18/2024 7:30 AM EST Treatment [facility] [address] [facility] [place] [address] [place] [address] Kaden Hickman, PUMPING STATION ENGINEER [facility] Start: 08-15-2024 Adult BMI Screening Adult BMI Screening [facility] Start: 08-15-2024 Tobacco Screening Tobacco Screening [facility] Start: 08-14-2024 End: 08-14-2024 ambulatory 08/14/2024 8:00 AM EST Treatment [facility] [address] [place] [address] Alma Berkowitz, PT [facility] Start: 08-11-2024 End: 08-11-2024 ambulatory 08/11/2024 7:30 AM EST Treatment [facility] [address] [place] [address] Kaden Hickman, PUMPING STATION ENGINEER [facility] Start: 08-07-2024 End: 08-07-2024 ambulatory 08/07/2024 8:00 AM EST Treatment [facility] [address] [place] [address] Alma Berkowitz, PT [facility] Start: 08-04-2024 End: 08-04-2024 ambulatory 08/04/2024 7:30 AM EST Treatment [facility] [address] [place] [address] Kaden Hickman, PUMPING STATION ENGINEER [facility] Start: 07-31-2024 End: 07-31-2024 Patient encounter procedure 07/31/2024 10:30 AM EST Office Visit [facility] [address] [facility] [address] [place] [address] Ashli Ross, [address] [place] [address] [facility] [address] Start: 07-31-2024 End: 07-31-2024 ambulatory 07/31/2024 8:00 AM EST Treatment [facility] [address] [place] [address] Kaden Hickman, PUMPING STATION ENGINEER [facility] Start: 07-30-2024 Hemoglobin A1c measurement Diabetes: Hemoglobin A1C [facility] Start: 07-28-2024 End: 07-28-2024 ambulatory [facility] Start: 07-24-2024 End: 07-24-2024 ambulatory 07/24/2024 8:00 AM EST Treatment [facility] [address] [place] [address] Alma Berkowitz, PT [facility] Start: 07-23-2024 End: 07-23-2024 Patient encounter procedure 07/23/2024 9:15 AM EST Office Visit [facility] [address] [place] [address] Rebecca Dias, PA [address] [place] [address] [facility] Start: 07-21-2024 End: 07-21-2024 ambulatory 07/21/2024 8:00 AM EST Treatment [facility] [address] [facility] [address] [place] [address] Kaden Hickman, PUMPING STATION ENGINEER [facility] Start: 07-16-2024 End: 07-16-2024 ambulatory 07/16/2024 8:00 AM EST Treatment [facility] [address] [facility] [address] [place] [address] Kaden Hickman, PUMPING STATION ENGINEER [facility] Start: 07-14-2024 End: 07-14-2024 Patient encounter procedure 07/14/2024 2:00 PM EST Office Visit [facility] [address] [place] [address] Hanna Butcher MD [address] [facility] [address] [place] [address] [facility] Start: 07-01-2024 End: 07-01-2024 ambulatory 07/01/2024 9:00 AM EST Treatment [facility] [address] [facility] [address] [place] [address] Alma Berkowitz, PT [facility] Start: 06-26-2024 End: 06-26-2024 ambulatory 06/26/2024 9:00 AM EST Treatment [facility] [address] [facility] [address] [place] [address] Kaden Hickman, PUMPING STATION ENGINEER [facility] Start: 06-25-2024 End: 06-25-2024 Patient encounter procedure 06/25/2024 8:45 AM EST Office Visit [facility] [address] [place] [address] Rebecca Dias, PA [address] [place] [address] [facility] Start: 06-24-2024 End: 06-24-2024 ambulatory 06/24/2024 9:00 AM EST Treatment [facility] [address] [place] [address] Alma Berkowitz, PT [facility] Start: 06-20-2024 End: 06-20-2024 ambulatory 06/20/2024 8:00 AM EST Treatment [facility] [address] [place] [address] Justina Carrillo, PT [address] [place] [address] [facility] Start: 06-16-2024 End: 06-16-2024 ambulatory 06/16/2024 10:00 AM EST Treatment [facility] [address] [place] [address] Alma Berkowitz, PT [facility] Start: 06-06-2024 End: 06-06-2024 Patient encounter procedure 06/06/2024 9:00 AM EST Office Visit [facility] [address] [place] [address] Rebecca Dias, PA [address] [place] [address] [facility] Start: 06-05-2024 End: 06-05-2024 ambulatory [facility] Start: 06-02-2024 End: 06-02-2024 ambulatory 06/02/2024 12:00 PM EST Treatment [facility] [address] [place] [address] Kaden Hickman, PUMPING STATION ENGINEER [facility] Start: 05-29-2024 End: 05-29-2024 Patient encounter procedure 05/29/2024 2:45 PM EST Office Visit [facility] [address] [place] [phone] Dexter Krishnamurthy DPM [address] [place] [address] [facility] Start: 05-29-2024 End: 05-29-2024 ambulatory [facility] Start: 05-28-2024 End: 05-28-2024 Patient encounter procedure [facility] Comment on above: Arrived Start: 05-26-2024 End: 05-26-2024 ambulatory 05/26/2024 10:00 AM EST Treatment [facility] [address] [facility] [address] [place] [address] Kaden Hickman, PUMPING STATION ENGINEER [facility] Start: 05-22-2024 End: 05-22-2024 ambulatory [facility] Start: 05-19-2024 End: 05-19-2024 ambulatory 05/19/2024 7:00 AM EST Treatment [facility] [address] [facility] [place] [place] [address] Kaden Hickman, PUMPING STATION ENGINEER [facility] Start: 05-13-2024 End: 05-13-2024 ambulatory 05/13/2024 9:30 AM EST Evaluation [facility] [address] [facility] [address] [place] [address] Alma Berkowitz, PT [facility] Start: [...] olyneuropathy, with long-term current use of insulin ([facility]) Start: 04-08-2024 End: 04-08-2024 Patient encounter procedure [facility] Comment on above: Pre-op examination (Primary Dx) Start: 03-25-2024 End: 03-25-2024 Patient encounter procedure 03/25/2024 1:30 PM EDT Procedure Visit [facility] Jr. Johanne Hdez, [address] [facility] [address] [place] [address] [facility] Start: 03-18-2024 End: 03-13-2025 Basic metabolic 1998 panel - Serum or Plasma Basic metabolic panel Lab Routine Preop examination Expected: 03/18/2024 (Approximate), Expires: 03/13/2025 [facility] Work Phone: Comment on above: Expected: 03/18/2024 (Approximate), Expi res: 03/13/2025 Start: 03-18-2024 End: 03-18-2025 Basic metabolic 2000 panel - Serum or Plasma Basic Metabolic Panel Lab Routine Encounter for other preprocedural examination Expected: 03/18/2024, Expires: 03/18/2025 [facility] Work Phone: Comment on above: Expected: 03/18/2024, Expires: Start: 03-18-2024 End: 03-18-2025 CBC W Auto Differential panel - Blood [facility] Comment on above: Expected: 03/18/2024 (Approximate), Expi res: 03/13/2025 Expected: 03/18/2024 , Expires: 03/18/2025 Start: 03-18-2024 End: 03-13-2025 Prothrombin time (PT) in Blood by Coagulation assay Protime-INR Lab Routine Preop examination Expected: 03/18/2024 (Approximate), Expires: 03/13/2025 [facility] Comment on above: Expected: 03/18/2024 (Approximate), Expi res: 03/13/2025 Start: 03-18-2024 End: 03-18-2025 Protime & INR Protime & INR Lab Routine Encounter for other preprocedural examination Expected: 03/18/2024, Expires: 03/18/2025 [employer] Work Phone: Comment on above: Expected: 03/18/2024, Expires: Start: 03-18-2024 Subsequent hospital visit by physician 03/18/2024 9:07 AM EDT Hospital Encounter [facility] [address] [place] [address] Arrived [facility] Comment on above: Arrived Start: 03-18-2024 End: 03-18-2024 Patient encounter procedure [facility] Comment on above: Preop examination Start: 03-03-2024 End: 03-03-2024 Patient encounter procedure 03/03/2024 2:30 PM EDT Office Visit [facility] [address] [place] [address] Jr. Johanne Hdez, DO [address] [address] Arrived [facility] Comment on above: Arrived Start: 02-25-2024 End: 02-24-2025 CT Chest for screening WO contrast CT low dose lung screening (Annual) Imaging Routine Personal history of tobacco use, presenting hazards to health Expected: 02/25/2024, Expires: 02/24/2025 [employer] Work Phone: Comment on above: Expected: 02/25/2024, Expires: Start: 02-25-2024 End: 02-25-2024 Patient encounter procedure [facility] Start: 02-17-2024 COVID-19 Vaccine ( season) COVID-19 Vaccine ( season) [facility] Start: 02-17-2024 COVID-19 Vaccine ( season) COVID-19 Vaccine ( season) [facility] Start: 02-17-2024 Influenza vaccination [facility] Start: 12-13-2023 End: 12-13-2023 Clinical Support 12/13/2023 8:00 PM EDT [facility] [address] [place] [address] [facility] Start: 11-19-2023 End: 11-19-2023 Clinical Support 11/19/2023 8:00 PM EDT Clinical Support [facility] [address] [place] [phone] [facility] Start: 10-29-2023 End: 10-29-2023 Patient encounter procedure 10/29/2023 1:15 PM EDT Office Visit [facility] [address] [place] [phone] Ashli Ross DO [address] [place] [address] [facility] 230 Start: 10-28-2023 Hemoglobin A1c measurement Diabetes: Hemoglobin A1C [facility] Start: 08-29-2023 End: 08-29-2023 Patient encounter procedure 08/29/2023 7:45 AM EDT [facility] [address] [place] [address] Dank Campo MD [address] [place] [address] [facility] Start: 08-23-2023 End: 08-23-2023 Patient encounter procedure [facility] - [facility] Imaging Start: 08-15-2023 End: 08-15-2024 CT Chest for screening WO contrast CT low dose lung screenin (3mo 6mo follow-up) Imaging Routine Personal history of tobacco use, presenting hazards to health Expected: 08/15/2023, Ex[facility]: [facility]2024 [facility] Work Phone: Comment on above: Expected: 08/15/2023, Expires: Start: 08-15-2023 End: 08-15-2024 Echo complete W/O contrast Echo complete W/O contrast Echocardiography Routine Obstructive sleep apnea syndrome CSA (central sleep apnea) Expected: 08/15/2023, Expires: 08/15/2024 [facility] Comment on above: Expected: 08/15/2023, Expires: Start: 08-09-2023 End: 08-09-2023 Patient encounter procedure 08/09/2023 8:30 AM EST Office Visit [facility] [address] [place] [id number] Dexter Krishnamurthy DPM [address] [place], [place] [id number] [facility] Start: 08-01-2023 End: 08-01-2023 Patient encounter procedure 08/01/2023 10:30 AM EST Office Visit [facility] [address] [place] [phone] Jr. Johanne Hdez C, DO [address] [address] [facility] Start: 04-27-2023 [facility] Start: 04-11-2023 Administration of varicella zoster [...] [facility] Start: 07-24-2022 [facility] Start: 04-15-2022 Adult BMI Screening Adult BMI Screening [facility] Start: 09-15-2020 Abdominal aortic aneurysm screening Abdominal Aortic Aneurysm (AAA) Screen [facility] Start: 09-15-2020 Fall Risk Screening Fall Risk Screening [facility] Start: 09-15-1974 Urine screening for protein Diabetes: Urine Protein Screening [facility] Start: 09-15-1973 Adult BMI Follow Up Plan Adult BMI Follow Up Plan [facility] Start: 1967 Depression Screening Depression Screening [facility] Start: 1967 Tobacco Screening Tobacco Screening [facility] Start: 09-15-1965 Glaucoma screening Diabetes: Retinopathy Screening [facility] Start: 1955 Medicare Annual Wellness (AWV) Medicare Annual Wellness (AWV) [facility] Start: 1955 Medicare Annual Wellness Visit Medicare Annual Wellness Visit [facility] Start: 1955 Screening for malignant neoplasm of colon [facility] Patient Education [facility] Work Phone: End: 08-15-2024 Polysomnography 4 or more parameters with PAP titration Polysomnography 4 or more parameters with PAP titration Sleep Center Routine Obstructive sleep apnea syndrome CSA (central sleep apnea) 1 Occurrences starting 08/15/2023 until 08/15/2024 [facility] [employer] [facility] Comment on above: 1 Occurrences starting 08/15/2023 until 08/15/2024 End: 10-27-2025 Pulmonary function test Spirometry (Flow Volume Loop) pre/post short acting bronchodilator w/ DLCO (diffusion study) Pulmonary function test Spirometry (Flow Volume Loop) pre/post short acting bronchodilator w/ DLCO (diffusion study) PFT Routine SOB (shortness of breath) 1 Occurrences starting 10/27/2024 until 10/27/2025 [facility] Work Phone: Comment on above: 1 Occurrences starting 10/27/2024 until 10/27/2025 Supine abdominal X-ray [facility] XR Shoulder - left 2 Views XR shoulder 2+ views left Imaging Routine Acute pain of left shoulder 03/03/2024 2:47 PM EDT [facility] Work Phone: Immunizations Immunization Date Immunization Notes Care Provider Fa cility 02-28-2024 ABRYSVO - Respirator y syncytial virus (RSV), vaccine, bivalent, protein subunit RSV prefusion F, diluent reconstituted, 0.5 mL, PF Ashli Petznick DO Work Phone: [facility] 02-28-2024 influenza, high dose seasonal, preservative-free Ashli Petznick DO Work Phone: [facility] 02-28-2024 influenza virus vaccine, unspecified formulation Jr. Stepanic DO Work Phone: [facility] 04-22-2023 zoster vaccine recombinant Ashli Petznick DO Work Phone: [facility] 03-23-2023 RSV, recombinant, protein subunit RSVpreF, adjuvant reconstitu, 120mcg/0.5mL, PF (Arexvy) Ashli Petznick DO Work Phone: [facility] 02-14-2023 influenza virus vaccine, unspecified formulation Peterson PETERSEN [facility] 02-14-2023 Influenza, Seasonal, Quadrivalent, Adjuvanted Ashli Petznick DO Work Phone: [facility] 02-14-2023 zoster vaccine recombinant Ashli Petznick DO Work Phone: [facility] 02-14-2023 zoster vaccine, unspecified formulation [facility] 04-09-2022 COVID-19 mRNA Bivale nt Booster (Pfizer) MD Dank Campo Work Phone: [facility] 04-09-2022 influenza virus vaccine, unspecified formulation Peterson [employer] [facility] 04-09-2022 Influenza, Seasonal, Quadrivalent, Adjuvanted Ashli Petznick DO Work Phone: [facility] 04-13-2021 COVID-19 mRNA, Comirnaty (Pfizer) MD Dank Campo Work Phone: [facility] 02-22-2021 influenza virus vaccine, unspecified formulation Peterson [employer] [facility] 02-22-2021 Influenza, Seasonal, Quadrivalent, Adjuvanted Ashli Petznick DO Work Phone: [facility] 02-22-2021 pneumococcal polysaccharide vaccine, 23 valent Ashli Petznick DO Work Phone: [facility] 02-16-2021 pneumococcal conjuga te vaccine, 13 valent Peterson PETERSEN [facility] 01-20-2021 tetanus and diphther ia toxoids, adsorbed, preservative free, for adult use (5 Lf of tetanus toxoid and 2 Lf of diphtheria toxoid) [employer] Other 01-20-2021 tetanus and diphther ia toxoids, adsorbed, preservative free, for adult use (2 Lf of tetanus toxoid and 2 Lf of diphtheria toxoid) Peterson PETERSEN [facility] 01-17-2021 influenza virus vaccine, unspecified formulation Peterson PETERSEN [facility] 01-17-2021 influenza, seasonal, injectable Ashli Petznick DO Work Phone: [facility] 01-17-2021 Moderna SARS-CoV-2 Vaccination Ashli Cody DO Work Phone: [facility] 10-16-2020 SARS-CoV-2 (COVID-19 ) mRNA BNT-162b2 vax Peterson PETERSEN [facility] 10-01-2020 COVID-19 mRNAAlfred (Pfizer) MD Dank Campo Work Phone: [facility] 09-08-2020 COVID-19 Alfred Hightower (Pfizer) MD Dank Campo Work Phone: [facility] 02-17-2020 influenza virus vaccine, unspecified formulation Peterson [employer] [facility] 02-17-2020 influenza, injectabl e, quadrivalent, preservative free Ashli Petznick DO Work Phone: [facility] 02-09-2020 influenza, high dose seasonal, preservative-free Ashli Petznick DO Work Phone: [facility] 03-15-2019 influenza virus vaccine, unspecified formulation Peterson [employer] [facility] 03-15-2019 influenza, injectabl e, quadrivalent, preservative free Ashli Petznick DO Work Phone: [facility] 02-25-2018 influenza virus vaccine, unspecified formulation Peterson [employer] [facility] 02-25-2018 influenza, injectabl e, quadrivalent, preservative free Ashli Petznick DO Work Phone: [facility] 05-30-2017 pneumococcal conjuga te vaccine, 13 valent Ashli Petznick DO Work Phone: [facility] 05-30-2017 pneumococcal polysaccharide vaccine, 23 valent Ashli Petznick DO Work Phone: [facility] 03-02-2017 influenza nasal, unspecified formulation Ashli Petznick DO Work Phone: [facility] 03-02-2017 influenza virus vaccine, unspecified formulation Peterson [employer] [facility] 03-02-2017 influenza, injectabl e, quadrivalent, preservative free Ashli Petznick DO Work Phone: [facility] 03-05-2016 influenza virus vaccine, unspecified formulation Peterson PETERSEN [facility] 03-05-2016 influenza, injectabl e, quadrivalent, preservative free Ashli Petznick DO Work Phone: [facility] 03-05-2016 influenza, seasonal, injectable Ashli Petznick DO Work Phone: [facility] 02-18-2015 zoster vaccine, live Ashli Petznick DO Work Phone: [facility] 02-01-2015 influenza virus vaccine, unspecified formulation Peterson PETERSEN [facility] 02-01-2015 influenza, seasonal, injectable Ashli Petznick DO Work Phone: [facility] 08-18-2014 tetanus toxoid, redu inocencio diphtheria toxoid, and acellular pertussis vaccine, adsorbed Ashli Petznick DO Work Phone: [facility] 08-04-2013 pneumococcal conjuga te vaccine, 13 valent Ashli Petznick DO Work Phone: [facility] Payers Date Payer Category Payer Self-pay [id number] 2023 Unknown [id number] 2021 Medicare (Managed Care) [facility] [id number] 2021 Medicare HMO AN[employer]M MEDICARE [id number] 2020 Medicare 1.2.840.239336. 1.13.693. [id number] 2013 Unknown [id number]. 1.13.424. 2.7.3.894693.315 1959 Medicare [id number] 1955 Unknown [id number] 2.16.840.1.193253.3.579. 2.593 1955 Unknown [id number] 2.16.840.1.587091.3.579. 2.593 1955 Unknown [id number] 2.16.840.1.035099.3.579. 2.593 1955 Unknown [id number] 2.16.840.1.160631.3.579. 2.593 1955 Unknown [id number] 2.16.840.1.733130.3.579. 2.593 1955 Unknown [id number] 2.16.840.1.025544.3.579. 2.593 1955 Unknown [id number] 2.16.840.1.734454.3.579. 2.593 1955 Unknown [id number] 2.16.840.1.087863.3.579. 2.593 1955 Unknown [id number] 2.16.840.1.825218.3.579. 2.1286 1955 Unknown [id number] 2.16.840.1.602193.3.579. 2.727 1955 Unknown [id number] 2.16.840.1.540641.3.579. 2.727 1955 Unknown [id number] 2.16.840.1.229680.3.579. 2.727 1955 Unknown [id number] 2.16.840.1.194414.3.579. 2.727 1955 Unknown [id number] 2.16.840.1.310088.3.579. 2.727 1955 Unknown [id number] 2.16.840.1.370750.3.579. 2.727 1955 Unknown [id number] 2.16.840.1.618373.3.579. 2.196 1955 Unknown [id number] 2.16.840.1.232372.3.579. 2.196 1955 Unknown [id number] 2.16.840.1.017292.3.579. 2.196 1955 Unknown [id number] 2.16.840.1.823075.3.579. 2.196 1955 Unknown [id number] 2.16.840.1.276039.3.579. 2.196 1955 Unknown [id number] 2.16.840.1.852211.3.579. 2.196 1955 Unknown [id number] 2.16.840.1.452070.3.579. 2.196 1955 Unknown [id number] 2.16.840.1.017297.3.579. 2.196 1955 Unknown [id number] 2.16.840.1.639605.3.579. 2.1286 1955 Unknown [id number] 2.16.840.1.749946.3.579. 2.1286 1955 Unknown [id number] 2.16.840.1.080699.3.579. 2.1286 1955 Unknown [id number] 2.16.840.1.902577.3.579. 2.128 1955 Unknown [id number] 2.16.840.1.812537.3.579. 2.1285 1955 Unknown [id number] 2.16.840.1.503905.3.579. 2.128 1955 Unknown [id number] 2.16.840.1.066231.3.579. 2.128 1955 Unknown [id number] 2.16.840.1.888767.3.579. 2.1258 1955 Unknown [id number] 2.16840.1.652908.3.579. 2.1258 1955 Unknown [id number] 2.840.1.887648.3.579. 2.1258 1955 Unknown [id number] 2.840.1.444260.3.579. 2.1258 1955 Unknown [id number] 2.16840.1.868060.3.579. 2.1258 1955 Unknown [id number] 2.840.1.011578.3.579. 2.1258 1955 Unknown [id number] 2.840.1.205621.3.579. 2.1258 1955 Unknown [id number] 2.16840.1.594597.3.579. 2.1258 1955 Unknown [id number] 2.16840.1.249945.3.579. 2.1258 1955 Unknown [id number] 2.16.840.1.258684.3.579. 2.1258 1955 Unknown [id number] 2.16840.1.976379.3.579. 2.1258 1955 Unknown [id number] 2.16.840.1.462454.3.579. 2.1258 1955 Unknown [id number] 2.16.840.1.459607.3.579. 2.1258 1955 Unknown [id number] 2.16.840.1.219139.3.579. 2.1258 1955 Unknown [id number] 2.16.840.1.161570.3.579. 2.1258 1955 Unknown [id number] 2.16.840.1.402661.3.579. 2.1258 1955 Unknown [id number] 2.16840.1.997997.3.579. 2.1258 1955 Unknown [id number] 2.16.840.1.719486.3.579. 2.1258 1955 Unknown [id number] 2.16840.1.470939.3.579. 2.1258 1955 Unknown [id number] 2.16840.1.339170.3.579. 2.1258 1955 Unknown [id number] 2.16.840.1.155750.3.579. 2.1258 1955 Unknown [id number] 2.16840.1.753913.3.579. 2.1258 1955 Unknown [id number] 2.16.840.1.215539.3.579. 2.1258 1955 Unknown [id number] 2.16.840.1.854777.3.579. 2.1258 1955 Unknown [id number] 2.16.840.1.446756.3.579. 2.1258 1955 Unknown [id number] 2.16.840.1.020437.3.579. 2.1258 1955 Unknown [id number] 2.16.840.1.411818.3.579. 2.1259 1955 Unknown [id number] 2.16.840.1.094358.3.579. 2.1259 Medicare Medicare [id number] Unknown [employer] BC/BS [id number] Unknown Regular Insurance [id number] Unknown [id number] 2.16.840.1.372918.3.579. 2.531 Unknown [id number] 2.16.840.1.423892.3.579. 2.531 Unknown [id number] 2.16.840.1.134836.3.579. 2.531 Unknown [id number] 2.16.840.1.900395.3.579. 2.531 Unknown [id number] 2.16.840.1.198031.3.579. 2.531 Worker's Compensation [employer] [id number] Worker's Compensation [id number] Social History Date Type Detail Facility Start: 02-03-2022 End: 08-15-2023 Ex-smoker (finding) [facility] Start: 06-29-2020 End: 01-09-2023 Male [facility] Start: 1955 Sex Assigned At Male F [facility] Start: 06-18-1974 End: 2021 History of tobacco use Current smoker [facility] Start: 06-18-1974 End: 2021 History of tobacco use Cigarette Smoker [facility] Start: 06-29-2020 End: 12-11-2022 Cigarettes smoked [...] to any clubs or organizations such as holiness groups, [employer], [employer] or athletic groups, or school groups? Yes [...] Start: 01-21-2015 End: 07-30-2024 Sex Male (finding) [facility] Start: 08-16-2023 End: 10-27-2024 Alcoholic beverage intake Current non-drinker of [facility] (finding[facility] Start: 12-22-2020 Tobacco smoking stat [facility] Smokes tobacco daily [facility] Medical Equipment Procedure Code Equipment Code Equipment Origin al Text Equipment Identifier Dates EGD (esophagogastroduod enoscopy) Video capsule endoscopy system [id number] -[id number]-B FDA Start: 08-18-2020 [id number] Start: 09-19-2022 use to test BLOO D SUGAR THREE TIMES DAILY [id number] Start: 09-19-2022 use to test BLOO D SUGAR THREE TIMES DAILY [id number] Start: 11-01-2022 USE DIRECTED FOUR TIMES DAILY [id number] Start: 02-21-2024 Fsbs bid [id number] Start: 12-17-2023 USE DIRECTED FOUR TIMES DAILY [id number] Start: 11-21-2023 USE DIRECTED FOUR TIMES DAILY [id number] Start: 06-05-2024 Swivelock 4.75 - Sna - [id number] Start: 12-10-2017 Incv/Swivelock 4.75 Use [id number] - Sna - [id number] Start: 07-19-2020 Fsbs bid [id number] Start: 12-24-2024 USE DIRECTED FOUR TIMES DAILY [id number] Start: 01-05-2025 Goals Date Patient Goal Desired Activity /State Personal health goal Comment on above: Formatting of this n ote might be different from the original. Evaluation of progress towards goal: Home self care with childrens support Functional Status Date Assessment Result Facility 02-04-2024 Functional Status N/A [facility] 02-12-2023 Functional Status N/A [facility] 02-03-2022 N/A [facility] Clinical Notes 11-04-2020 to 02-02-2025 Telephone Encounter [...] seal with face. [facility] 02-02-2025 Telephone encounter Note Images from the original note were not included. Pt into [facility] today, without an appointment. Wanted to try [...] PAP and form better seal with face. [facility] 01-28-2025 History of Presen t illness Narrative Milad Seymour is a 69 y.o. male Dank Campo MD presents with chief complaint of Diabetes (NEW REF ONLY) HPI: 01/2025 History of Present Illness The patient is a new patient sent from Dr. Kamran Campo for uncontrolled diabetes. A1c in our office [...] 300 mg, 2 times daily glucose blood (BOARDZ Ultra) test strip Fsbs bid insulin lispro (HUMALOG KWIKPEN) 30 Units, Subcutaneous, 3 times daily with meals insulin pen needle (Gocella UniHotelzilla Pentips) 31G x 5 mm misc USE DIRECTED FOUR TIMES DAILY Lancets (BOARDZ Delica Plus [id number]) misc lansoprazole (Prevacid) [address] capsule [...] Hyperlipidemia Hypertension Iron Infusions on going per [facility] , Low back pain Migraine Otitis [...] 07/2020 Right PCR ROTATOR CUFF REPAIR Bilateral [id number] Wendy Crowell ROTATOR CUFF REPAIR 04/2024 SHOULDER [...] hyperglycemia, with long-term current use of insulin ([facility]) - POCT glucose manually resulted - POCT [...] panel; Future Primary hypertension Insulin long-term use ([facility]) Hyperlipemia, mixed Encounter for dietary consultation Class 2 severe obesity due to excess calories with serious comorbidity and body mass index (BMI) of 38.0 to 38.9 in adult ([facility]) Diet and exercise reviewed with the patient Stage 3b chronic kidney disease ([facility]) Type 2 diabetes mellitus with diabetic polyneuropathy, with long-term current use of insulin ([facility]) Assessment & Plan 1. Uncontrolled diabetes: - [...] months (around 04/30/2025). documented in this encounter [facility] 12-02-2024 History of Presen t illness Narrative Images from the original note were not included. [address] [facility] [address] Patient: Milad Seymour Date of : [...] Hanna Butcher MD Pulmonary [facility] Past Medical, Family, and Social History Update: The following portions of the patient's history were reviewed and updated as appropriate: allergies, current medications, past family history, past medical history, past social history, past surgical history and problem list. Past Medical History: Diagnosis Date Anemia Unknown Arthritis Benign prostatic hyperplasia Cancer ([facility]) PROSTATE COPD (chronic obstructive pulmonary disease) ([facility]) Unknown Diabetes mellitus type 2, controlled ([facility]) GERD (gastroesophageal reflux disease) History of placement of ear tubes right ear Hyperlipidemia Hypertension Jaundice 03/30/21 FRANK (obstructive sleep apnea) cpap Visual impairment glasses Past Surgical History: Procedure Laterality Date APPENDECTOMY CHOLECYSTECTOMY 04/06/21 COLONOSCOPY 2019 FOOT SURGERY heel spur right KNEE SURGERY bilateral scope LAPAROSCOPIC EPIGASTRIC HERNIA REPAIR REPAIR ROTATOR CUFF SHOULDER Right 07/19/2020 Performed by Karsten Crowell DO at [facility] REPAIR ROTATOR CUFF SHOULDER Right 12/10/2017 Performed by Karsten Crowell DO at [facility] SHOULDER SURGERY bilateral TONSILLECTOMY 06/1970 TYMPANOSTOMY TUBE [...] Use No [facility] History of Presen t illness Narrative Images from the original note were not included. [address] [place] [address] Patient: Milad Seymour Date of : 1955 [...] Hanna Butcher MD Pulmonary [facility] Past Medical, Family, and Social History Update: The following portions of the patient's history were reviewed and updated as appropriate: allergies, current medications, past family history, past medical history, past social history, past surgical history and problem list. Past Medical History: Diagnosis Date Anemia Unknown Arthritis Benign prostatic hyperplasia Cancer ([facility]) PROSTATE COPD (chronic obstructive pulmonary disease) ([facility]) Unknown Diabetes mellitus type 2, controlled ([facility]) GERD (gastroesophageal reflux disease) History of placement of ear tubes right ear Hyperlipidemia Hypertension Jaundice 03/30/21 FRANK (obstructive sleep apnea) cpap Visual impairment glasses Past Surgical History: Procedure Laterality Date APPENDECTOMY CHOLECYSTECTOMY 04/06/21 COLONOSCOPY 2019 FOOT SURGERY heel spur right KNEE SURGERY bilateral scope LAPAROSCOPIC EPIGASTRIC HERNIA REPAIR REPAIR ROTATOR CUFF SHOULDER Right 07/19/2020 Performed by Karsten Crowell DO at [facility] REPAIR ROTATOR CUFF SHOULDER Right 12/10/2017 Performed by Karsten Crowell DO at [facility] SHOULDER SURGERY bilateral TONSILLECTOMY 06/1970 TYMPANOSTOMY [...] Alcohol Use No documented in this encounter [facility] 10-27-2024 Instructions Hanna Butcher MD - 10/27/2024 10:15 AM EDT 1. Need leak improvement to help with AHI 2. Update PFTs 3. Noted attempted CT but unable 4. Follow up in 1 month documented in this encounter [facility] 10-21-2024 Miscellaneous Notes Patient came in office to reschedule his appointment with YASMIN, patient was last seen on 02/25/2024, patient no showed to his last appointment on 07/14/2024. Patient has only been seen for FRANK. Patient would like to discuss pulmonary concerns with KW. Patient is scheduled for next available of 03/09/2025 in [place] (in 30 minute slot). Patient has not [...] breath on exertion, denies wheezing and cough. Bioprocess Development Engineer called patient and informed him that KW ordered a CXR to have him complete at his earliest convenience. Patient verbalized understanding. documented in this encounter [facility] 10-21-2024 Telephone encounter Note Patient came in office to reschedule his appointment with KW, patient was last seen on 02/25/2024, patient no showed to his last appointment on 07/14/2024. Patient has only been seen for FRANK. Patient would like to discuss pulmonary concerns with KW. Patient is scheduled for next available of 03/09/2025 in [place] (in 30 minute slot). Patient has not completed his LDSCT due to having anxiety/panic attack of being in confined area. Patient has not had any recent chest imaging or PFTs. Please review and advise. [facility] 10-21-2024 Telephone encounter Note Noted. Please have him on the cancellation list. If SOB is worse, ok to get repeat chest xray [facility] Work Phone: 10-21-2024 Telephone encounter Note Patient stated that he has been experiencing more shortness of breath on exertion, denies wheezing and cough. [facility] 10-21-2024 Telephone encounter Note Bioprocess Development Engineer called patient and informed him that KW ordered a CXR to have him complete at his earliest convenience. Patient verbalized understanding. [facility] 09-24-2024 History of Presen t illness [...] radiculopathy. Has recently received injection therapy at [facility]; and is potentially scheduled [...] *, Disp: 9 each, Rfl: 3 Drug [place] Unifine Pentips 31G X 5 MM misc, [...] mL, Rfl: 3 Lancets (OneTouch Delica Plus [id number]) [facility], use to test BLOOD SUGAR THREE TIMES [...] 07/2020 Right PCR ROTATOR CUFF REPAIR Bilateral [id number] Wendy Crowell ROTATOR CUFF REPAIR 04/2024 SHOULDER [...] Dexter Krishnamurthy DPM documented in this encounter [facility] 09-24-2024 Instructions Dexter Krishnamurthy DPM - 09/24/2024 2:45 PM EDT As noted documented in this encounter [facility] 07-31-2024 History of Presen t illness Narrative Associated Problem(s): Type 2 diabetes mellitus with diabetic polyneuropathy, with long-term current use of insulin ([facility]) During the appointment today all pertinent [...] hypotension Osteoarthritis of knee Benign essential hypertension ([facility]/HCC) Primary osteoarthritis, right shoulder Prostate cancer (CMS/HCC) Proteinuria Hypercholesteremia ([facility]) Renal failure 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, with long-term current use of insulin ([facility]/HCC) Long-term insulin use ([facility]) Lumbar spondylosis Bilateral leg edema Encounter for long-term (current) use of medications Class 2 severe obesity due to excess calories with serious comorbidity and body mass index (BMI) of 37.0 to 37.9 in adult ([facility]) FRANK (obstructive sleep apnea) Chronic fatigue Right hand pain Hypersomnia Fasciculations Memory impairment Bilateral carpal tunnel syndrome Foot drop, right Lumbar radiculopathy Cervical radiculopathy Family history of Parkinson's disease JARAD (generalized anxiety disorder) (CMS/[facility]) Type 2 diabetes mellitus with stage 3b chronic kidney disease, with long-term current use of insulin (HCC) ([facility]) Type 2 diabetes mellitus with hyperglycemia, with long-term current use of insulin ([facility]) Social History Tobacco Use Smoking status: [...] Semaglutide [address] [facility] HEMOGLOBIN A1C/HEMOGLOBIN.TOTAL:MFR:PT:BLD :QN: 9.4 Outpatient prescription Medication marked as long-term The ASCVD Risk score (Liberty DK, et al., 2019) failed to calculate [...] polyneuropathy, with long-term current use of insulin ([facility]) During the appointment today all pertinent [...] (BMI) of 37.0 to 37.9 in adult ([facility]) - Primary Type 2 diabetes mellitus with stage 3b chronic kidney disease, with long-term current use of insulin (HCC) ([facility]) Type 2 diabetes mellitus with hyperglycemia, with long-term current use of insulin ([facility]) Follow up in about 3 months [...] and 300 mg before bedtime. GLUCOSE BLOOD ([employer]CH ULTRA) TEST STRIP Fsbs bid LANCETS ([employer]TOUCH DELICA PLUS [id number]) MISC use to test BLOOD SUGAR THREE [...] the patient today. documented in this encounter [facility] 07-30-2024 Evaluation note Diagnosis Onset Date Resolution GERD (gastroesophageal reflux disease) acute July 30, 025 2:05pm IBS (irritable bowel syndrome) acute July 30 025 2:05pm [facility] Work Phone: [phone]) [phone] History of Present illness Narrative* TK Cantu [...] for requiring urgent evaluation. documented in this encounterChristian [id number] History of Present illness Narrative* Alma Woo, [...] pillow removed. No complaints of pain. Precautions: Dillon Subjective: Pt states he was consistently icing [...] be instructed in home exercise program. Senior Maintenance Technician Goals: To be met in 10 weeks [...] Please sign below. Date: documented in this encounterChristian [id number] History of Present illness Narrative* TK Cantu [...] for requiring urgent evaluation. documented in this encounterChristian HospitalPrioxerlci91-84-7531 History of Present illness Narrative* Alma Woo, [...] pillow removed. No complaints of pain. Precautions: Dillon Subjective: Pt states he has noticed a [...] be instructed in home exercise program. Senior Maintenance Technician Goals: To be met in 10 weeks [...] Please sign below. Date: documented in this encounterChristian [id number] History of Present illness Narrative* Justina Carrillo, [...] pillow removed. No complaints of pain. Precautions: Dillon Subjective: No significant pain coming in today. [...] be instructed in home exercise program. Senior Maintenance Technician Goals: To be met in 10 weeks [...] Please sign below. Date: documented in this encounterChristian [id number] History of Present illness Narrative* Alma Berkowitz, [...] pillow removed. No complaints of pain. Precautions: Dillon Subjective: Pt states he was a little [...] to be instructed in home exercise program. Assisted Goals: To be met in 10 weeks [...] Please sign below. Date: documented in this encounterChristian [id number] History of Present illness Narrative* Alma Berkowitz, [...] pillow removed. No complaints of pain. Precautions: Dillon Subjective: Pt states pain is minimal in [...] to be instructed in home exercise program. Assisted Goals: To be met in 10 weeks [...] Please sign below. Date: documented in this [facility]12-21-2024 Telephone encounter Note* Telephone Encounter - TK Cantu - 06/07/2024 8:34 AM EST Spoke with pt. May DC sling.. Start AROM/ PROM,. No strengthening or resistance... keep therapy going pending follow up.. pt feels he is doing well and making progress [facility] [id number] Miscellaneous Notes* Telephone Encounter - TK Cantu - 06/07/2024 8:34 AM EST Spoke with pt. May DC sling.. Start AROM/ PROM,. No strengthening or resistance... keep therapy going pending follow up.. pt feels he is doing well and making progress documented in this [facility]12-17-2024 Telephone encounter Note* Telephone Encounter - Dank Campo MD - 06/03/2024 9:58 AM EST Patient left message about prozac dose. Dose increased to 40 mg last week and script was sent to [facility]. It will take 2-3 weeks to notice an improvement in mood and continue at 40 mg. [facility] HospitalUpttijgbzi19-19-0475 Miscellaneous Notes* Telephone Encounter - Dank Campo MD - 06/03/2024 9:58 AM EST Patient left message about prozac dose. Dose increased to 40 mg last week and script was sent to [facility]. It will take 2-3 weeks to notice an improvement in mood and continue at 40 mg. documented in this encounterChristian HospitalBqbqoqqvdz28-74-1171 History of Present illness Narrative* Dexter Krishnamurthy [...] days, Disp: 9 each, Rfl: 3 Drug Dun[place] Birdiee Pentips 31G X 5 MM misc, [...] by mouth, Disp: , Rfl: glucose blood ([employer] Ultra) test strip, Fsbs bid, Disp: 200 each, Rfl: 3 insulin glargine (Lantus SoloStar) 100 UNIT/ML pen, Inject 65 Units under the skin at bedtime, Disp: 60 mL, Rfl: 3 insulin lispro (HumaLOG) 100 UNIT/ML injection, INJECT 12 UNITS BREAKFAST, 25 UNITS LUNCH/ DINNER PLUS CORRECTIONS OF 1:30 > 150MG/DL ( MAX 100 UNITS A DAY), Disp: 90 mL, Rfl: 3 Lancets (GenomeQuestTouch Delica Plus [id number]) misc, use to test BLOOD SUGAR THREE [...] SURGERY 03/2021 HEEL SPUR SURGERY Right 2011 [place] KNEE SURGERY x2 arthroscopy OTHER SURGICAL HISTORY 07/31/2017 RM and T-tube, Timmis OTHER SURGICAL HISTORY Right 07/2020 Right PCR ROTATOR CUFF REPAIR Bilateral [id number] Wendy Crowell ROTATOR CUFF REPAIR 04/2024 SHOULDER [...] understanding. Dexter Krishnamurthy DPM documented in this [facility]12-12-2024 Instructions* Patient Instructions* Dexter Krishnamurthy DPM - 05/29/2024 2:45 PM EST As noted documented in this [facility]12-12-2024 History of Present illness Narrative* Valentine [...] pillow removed. No complaints of pain. Precautions: [place] Subjective: Pt reports he has probably using [...] be instructed in home exercise program. Senior Maintenance Technician Goals: To be met in 10 weeks [...] Please sign below. Date: documented in this encounterChristian [id number] History of Present illness Narrative* Dank Campo MD - 05/28/2024 8:21 AM ESTAssociated Problem(s): Type 2 diabetes mellitus with stage 3b chronic kidney disease, with long-term current use of insulin (HCC) ([facility]) Renal function stable. Continue lisinopril and ozempic. * Dank Campo MD - 05/28/2024 8:19 AM ESTAssociated Problem(s): Type 2 diabetes mellitus with diabetic polyneuropathy, with long-term current use of insulin ([facility]) BS improving and follow up with endo. * Dank Campo MD - 05/28/2024 8:19 AM ESTAssociated Problem(s): Lumbar spondylosis Pain starting to worsen and follow with pain management. Continue celebrex. * Dank Campo MD - 05/28/2024 8:18 AM ESTAssociated Problem(s): JARAD (generalized anxiety disorder) ([facility]) Worsening symptoms and increase prozac. Warned [...] polyneuropathy, with long-term current use of insulin ([facility]) BS improving and follow up with endo. Lumbar spondylosis Pain starting to worsen and follow with pain management. Continue celebrex. Relevant Medications tiZANidine (Zanaflex) 4 MG tablet JARAD (generalized anxiety disorder) ([facility]) Worsening symptoms and increase prozac. Warned will take 2-3 weeks to notice improvement in mood. Use valium PRN. Relevant Medications FLUoxetine (PROzac) 40 MG capsule documented in this [facility]11-25-2024 Telephone encounter Note* Telephone Encounter - Slime Sanches - 05/12/2024 1:40 PM EST $35.00 copay / prior-auth needed. [facility] [id number] Miscellaneous Notes* Telephone Encounter - Slime Sanches - 05/12/2024 1:40 PM EST $35.00 copay / prior-auth needed. documented in this [facility]11-22-2024 History of Present illness Narrative* TK [...] for requiring urgent evaluation. documented in this [facility]11-22-2024 Instructions* Patient Instructions* TK Cantu - [...] schedule as soon aspossible documented in this [facility]11-12-2024 History of Present illness Narrative* Ashli Ross DO - 04/29/2024 11:31 AM ESTAssociated Problem(s): Type 2 diabetes mellitus with diabetic polyneuropathy, with long- term current use of insulin ([facility]) During the appointment today all pertinent [...] polyneuropathy, with long-term current use of insulin ([facility]) Long-term insulin use ([facility]) Class 2 severe obesity due to excess calories with serious comorbidity and body mass index (BMI) of35.0 to 35.9 in adult ([facility]) Lumbar spondylosis Bilateral leg edema Encounter for long-term (current) use of medications Obesity (BMI 30-39.9) FRANK (obstructive sleep apnea) Chronic fatigue Right hand pain Hypersomnia Fasciculations Memory impairment Bilateral carpal tunnel syndrome Foot drop, right Lumbar radiculopathy Cervical radiculopathy Family history of Parkinson's disease JARAD (generalized anxiety disorder) ([facility]) Type 2 diabetes mellitus with stage 3a chronic kidney disease, with long-term current use of insulin ([facility]) ([facility]) Social History Tobacco Use Smoking status: [...] TO IDMS STANDARD 1.60 METHOD TRACEABLE TO IDLA STANDARD Outpatient prescription Medication marked as long-term [...] polyneuropathy, with long-term current use of insulin ([facility]) During the appointment today all pertinent [...] A1C) docked device (Completed) Long-term insulin use ([facility]) Class 2 severe obesity due to excess calories with serious comorbidity and body mass index (BMI) of35.0 to 35.9 in adult ([facility]) - Primary Type 2 diabetes mellitus with stage 3a chronic kidney disease, with long-term current use of insulin ([facility]) ([facility]) Follow up in about 3 months [...] STRIP Fsbs bid LANCETS (ONETOUCH DELICA PLUS [id number]) MISC use to test BLOOD SUGAR THREE [...] with the patient today. documented in this [facility]11-07-2024 Telephone encounter Note* Telephone Encounter - Fredy Boswell NP - 04/24/2024 2:50 PM EST Post op pain rx. PDMP reviewed [facility] [id number] Miscellaneous Notes* Telephone Encounter - Fredy Boswell NP - 04/24/2024 2:50 PM EST Post op pain rx. PDMP reviewed documented in this [facility]11-06-2024 Telephone encounter Note* Telephone Encounter - Dank Campo MD - 04/23/2024 12:24 PM EST BP very low and patient having symptoms. Decrease lisinopril to once a day and continue to monitor. [facility] [id number] Miscellaneous Notes* Telephone Encounter - Dank Campo MD - 04/23/2024 12:24 PM EST BP very low and patient having symptoms. Decrease lisinopril to once a day and continue to monitor. documented in this [facility]10-22-2024 History of Present illness Narrative* TK [...] Hypertension (CMS/HCC) Iron Infusions on going per [facility] , Low back pain Migraine (CMS/HCC) Otitis externa Prostate cancer (CMS/HCC) 2018 radiation PVC (premature ventricular contraction) Right shoulder pain Rotator cuff tear, right 2020 Sleep apnea PAST SURGICAL HISTORY: Past Surgical History: Procedure Laterality Date APPENDECTOMY 1970 CHOLECYSTECTOMY COLONOSCOPY COLONOSCOPY 2015 EGD GALLBLADDER SURGERY 03/2021 HEEL SPUR SURGERY Right 2011 [place] KNEE SURGERY x2 arthroscopy OTHER SURGICAL HISTORY 07/31/2017 RM and T-tube, Timmis OTHER SURGICAL HISTORY Right 07/2020 Right PCR ROTATOR CUFF REPAIR Bilateral [id number] Wendy Crowell ROTATOR CUFF REPAIR SHOULDER ARTHROSCOPY [...] 10 mg, Oral, 3 times daily Drug [place] Unifine Pentips 31G X 5 MM misc USE DIRECTED FOUR TIMES DAILY fluorometholone (FML) 0.1 % ophthalmic suspension instill 1 (ONE) DROP IN BOTH EYES FOUR TIMES DAILY FOR 7 DAYS then instill 1 (ONE) DROP IN BOTH EYES TWICE DAILY FOR 7 DAYS FLUoxetine (PROZAC) 20 mg, Oral, Daily gabapentin (Neurontin) 100 MG capsule Oral glucose blood ([employer] Ultra) test strip Fsbs bid insulin lispro (HumaLOG) 100 UNIT/ML injection INJECT 5-10 UNITS BREAKFAST, 30 UNITS LUNCH/ DINNER PLUS CORRECTIONS OF 1:30 > 150MG/DL ( MAX 100 UNITS A DAY) Lancets (GenomeQuestTouch Delica Plus [id number]) [facility] use to test BLOOD SUGAR THREE TIMES [...] and proposed surgeryscheduled. (L) SHOULDER SCOPE 04/25 @FORIEGN SX INSTRUCTIONS GIVEN TODAY 04/08 @8:15AM - [place] DR. CAMPO CLEARANCE ; OBTAINED ULTRASLING GIVEN AT PRIOR APPT [facility] NOTIFIED PA APPROVED ([id number]) Follow up for 05/09 @9am w/tish in [place]. documented in this encounterChristian HospitalPcqslglklz46-71-0748 Telephone encounter Note* Telephone Encounter - Jr. Johanne Hdez DO - 03/25/2024 8:05 AM EDT Case cancelled as he took aspirin and celebrex [facility] [employer] Work Phone: [phone]) 873-618910-08-2024 Miscellaneous Notes* Telephone Encounter - Jr. Johanne Hdez DO - 03/25/2024 8:05 AM EDT Case cancelled as he took aspirin and celebrex * Telephone Encounter - Fredy Boswell NP - 03/24/2024 6:38 PM EDT Post op pain rx. PDMP reviewed documented in this encounterChristian HospitalEvefkrobeo27-06-2252 Telephone encounter Note* Telephone Encounter - Fredy Boswell NP - 03/24/2024 6:38 PM EDT Post op pain rx. PDMP reviewed [facility] HospitalAqcrcqozdv95-52-2985 Telephone encounter Note* Telephone Encounter - TK Cantu - 03/18/2024 2:20 PM EDT Reviewed Pre-op labs.. Abdnormal renal function and potassium level. Labs in chart... Dr. Campo..are you willing to address? [facility] Work Phone: [phone]) 260-225710-01-2024 Miscellaneous Notes* Telephone Encounter - TK Cantu - 03/18/2024 2:20 PM EDT Reviewed Pre-op labs.. Abdnormal renal function and potassium level. Labs in chart... Dr. Camop..are you willing to address? documented in this encounterChristian [id number] History of Present illness Narrative* TK Cantu [...] Hypertension (CMS/HCC) Iron Infusions on going per [facility] , Low back pain Migraine (CMS/HCC) Otitis externa Prostate cancer (CMS/HCC) 2018 radiation PVC (premature ventricular contraction) Right shoulder pain Rotator cuff tear, right 2020 Sleep apnea PAST SURGICAL HISTORY: Past Surgical History: Procedure Laterality Date APPENDECTOMY 1971 CHOLECYSTECTOMY COLONOSCOPY COLONOSCOPY 2016 EGD GALLBLADDER SURGERY 03/2021 HEEL SPUR SURGERY Right 2011 [place] KNEE SURGERY x2 arthroscopy OTHER SURGICAL HISTORY 07/31/2017 RM and T-tube, Timmis OTHER SURGICAL HISTORY Right 07/2020 Right PCR ROTATOR CUFF REPAIR Bilateral [id number] Wendy Crowell ROTATOR CUFF REPAIR SHOULDER ARTHROSCOPY [...] Continuous Blood Gluc Sensor (Dexcom G7 Sensor) [facility] 1 Device, Subcutaneous, See admin instructions, Change every 10 days cyclobenzaprine (FLEXERIL) 10 mg, Oral, 3 times daily diazePAM (VALIUM) 5 mg, Oral, 3 times daily PRN Drug [place] Unifine Pentips 31G X 5 MM [facility] USE DIRECTED FOUR TIMES DAILY fluorometholone (FML) 0.1 % ophthalmic suspension instill 1 (ONE) DROP IN BOTH EYES FOUR TIMES DAILY FOR 7 DAYS then instill 1 (ONE) DROP IN BOTH EYES TWICE DAILY FOR 7 DAYS FLUoxetine (PROZAC) 20 mg, Oral, Daily glucose blood ([employer] Ultra) test strip Fsbs bid insulin lispro (HumaLOG) 100 UNIT/ML injection INJECT 5-10 UNITS BREAKFAST, 30 UNITS LUNCH/ DINNER PLUS CORRECTIONS OF 1:30 > 150MG/DL ( MAX 100 UNITS A DAY) Lancets (GenomeQuestTouch Delica Plus [id number]) [facility] use to test BLOOD SUGAR THREE TIMES [...] SX INSTRUCTIONS GIVEN TODAY 03/18 @8:30AM - [place] ULTRASLING GIVEN TODAY [facility] NOTIFIED PA APPROVED ([id number]) Patient presents today for fitting of left [...] Follow up for 04/08 @9am [place]. documented in this encounterChristian [id number] Telephone encounter Note* Telephone Encounter - Ashli [...] visit andhe was waiting on patient assistance. [facility] HospitalOvpxqigtdo83-03-4689 Miscellaneous Notes* Telephone Encounter - Ashli Ross [...] waiting on patient assistance. documented in this encounterChristian HospitalMjljdfxuxy08-00-5065 History of Present illness Narrative* Jr. Johanne [...] XRAY CHANGE 04/30/23 CT ARTHROGRAM 07/24/23 [facility] [place]; UNABLE TO DUE TO CLAUSTROPHOBIA [...] mg, Oral, 3 times daily PRN Drug [place] Unifine Pentips 31G X 5 MM misc USE DIRECTED FOUR TIMES DAILY fluorometholone (FML) 0.1 % ophthalmic suspension instill 1 (ONE) DROP IN BOTH EYES FOUR TIMES DAILY FOR 7 DAYS then instill 1 (ONE) DROP IN BOTH EYES TWICE DAILY FOR 7 DAYS FLUoxetine (PROZAC) 20 mg, Oral, Daily glucose blood ([employer]Touch Ultra) test strip Fsbs bid insulin lispro (HumaLOG) 100 UNIT/ML injection INJECT 5-10 UNITS BREAKFAST, 25 UNITS LUNCH/ DINNER PLUS CORRECTIONS OF 1:30 > 150MG/DL ( MAX 100 UNITS A DAY) Lancets (OneTouch Delica Plus [id number]) misc use to test BLOOD SUGAR THREE [...] intervention. Johanne Hdez D.O. documented in this encounterChristian HospitalZuztrntfhf73-25-1103 Miscellaneous Notes* Telephone Encounter - Olive Juárez - 02/28/2024 8:30 AM EDT PAP mask and supplies order with supportive documentation faxed to [facility]. [facility] Telephone encounter Note* Telephone Encounter - Olive Finn Franck - 02/28/2024 8:30 AM EDT PAP mask and supplies order with supportive documentation faxed to [facility]. [facility]09-09-[facility]24 History of Present illness Narrative* Hanna Butcher MD - 02/25/2024 10:30 AM EDT Images from the original note were not included. [address] [place] [address] Patient: Milad Seymour Date of : 1955 [...] and dark, TV on initially, no pets) IPA- < 30 minutes WASO- none typically WT- [...] PM 12/14/2023 12:21 AM 02/25/2024 10:00 AM [place] Sleepiness Scale Sitting and Reading 3 3 [...] Hanna Butcher MD Pulmonary and [facility] Past Medical, Family, and Social History Update: The following portions of the patient's history were reviewed and updated as appropriate: allergies, current medications, past family history, past medical history, past social history, past surgicalhistory and problem list. Past Medical History: Diagnosis Date Anemia Unknown Arthritis Benign prostatic hyperplasia Cancer (CMS-HCC) PROSTATE COPD (chronic obstructive pulmonary disease) ([facility]) Unknown Diabetes mellitus type 2, controlled ([facility]) GERD (gastroesophageal reflux disease) History of placement of ear tubes right ear Hyperlipidemia Hypertension Jaundice 03/30/21 FRANK (obstructive sleep apnea) cpap Visual impairment glasses Past Surgical History: Procedure Laterality Date APPENDECTOMY CHOLECYSTECTOMY 04/06/21 COLONOSCOPY 2019 FOOT SURGERY heel spur right KNEE SURGERY bilateral scope LAPAROSCOPIC EPIGASTRIC HERNIA REPAIR REPAIR ROTATOR CUFF SHOULDER Right 07/19/2020 Performed by Karsten Crowell DO at [facility] REPAIR ROTATOR CUFF SHOULDER Right 12/10/2017 Performed by Karsten Crowell DO at [facility] SHOULDER SURGERY bilateral TONSILLECTOMY 06/1970 TYMPANOSTOMY TUBE [...] Activity Alcohol Use No documented in this encounterMem[facility]09-09-2024 Instructions* Patient Instructions* Hanna Butcher MD - 02/25/2024 10:30 AM EDT 1. Continue with current pressure setting 2. Reviewed data download 3. LDCT for lung cancer screening 4. Follow up 4 months documented in this encounterMem[facility]08-[facility]-2024 Telephone encounter Note* Telephone Encounter - Walt Newton - 02/04/2024 4:27 PM EDT Like self pay shoes [facility] HospitalHydqxqhjol67-44-2947 Miscellaneous Notes* Telephone Encounter - Walt Newton - 02/04/2024 4:27 PM EDT Like self pay shoes documented in this encounterChristian HospitalZdatbjwnut42-21-6810 Hospital Discharge instructions Patient Education 02/04/2024 12:42:37 [...] treatment? Where to find more information [employer] [place] [employer]: www.cancer.org [place] [employer]: www.auanet.org Contact a health care [...] provider. Document Revised: 11/28/2021 Document Reviewed: 11/28/2021 [employer] Patient Education 2022 [employer]. Follow Up Care 02/12/2023 10:16:19 With:NICOLA RAYMUNDO, Peterson Owens, URL Address: [facility] [address], [place] [phone] When: Unknown [facility] 08-19-2024 NotePatient Education Oncology Prostate Cancer [...] Where to find more information ? The [place] [employer]: www.cancer.org ? [place] [employer]: www.auanet.org Contact a health care [...] front of the rectum. (more content not included)...[facility]07-18-2024 Miscellaneous Notes* Telephone Encounter - Oskar Contreras MD - 01/03/2024 12:57 PM EDT Patient seen by DAIRO. Has follow up with Dr. Butcher on 02/25/2024. Probably should wait for that visit before deciding on how best to proceed with care. Titration study on 12/13/2023 (Etlnfz=403.0 lbs; BMI=36.9 kg/m2) DIAGNOSIS: Central Sleep Apnea [...] may also be considered. documented in this encounterMem[facility]07-[facility]-2024 Telephone encounter Note* Telephone Encounter - Oskar Contreras MD - 01/03/2024 12:57 PM EDT Patient seen by SK. Has follow up with Dr. Butcher on 02/25/2024. Probably should wait for that visit before deciding on how best to proceed with care. Titration study on 12/13/2023 (Dzdbii=373.0 lbs; BMI=36.9 kg/m2) DIAGNOSIS: Central Sleep Apnea [...] an oxygen titration may also be considered. [employer] Work Phone: [phone]) [phone] Miscellaneous Notes* Telephone Encounter - Aliza Escalera - 12/06/2023 1:55 PM EDT Pt notified per SK that sleep aid has been called into [facility] in [place] for him to picker and sorter load and unload and take with him the night of his upcoming sleep study. Pt voice understanding and was very appreciative. documented in this encounterBrattleboro Memorial HospitalJump or Fall06-20-2024 Telephone encounter Note* Telephone Encounter - Aliza Escalera - 12/06/2023 1:55 PM EDT Pt notified per SK that sleep aid has been called into [facility] in [place] for him to picker and sorter load and unload and take with him the night of his upcoming sleep study. Pt voice understanding and was very appreciative. [place]al06-20-2024 History of Present illness Narrative* SONNY Dneis - 12/06/2023 12:43 PM EDT Discussed Ambien [address] Marmolejo for night of sleep study. Ordered. SONNY Denis 12/06/23 1245 documented in this encounterBrattleboro Memorial HospitalJump or Fall06-19-2024 Miscellaneous Notes* Telephone Encounter - Aliza Escalera - 12/05/2023 9:58 AM EDT Pt came into office, requesting help to reach the sleep lab to get his sleep study rescheduled. States he had to leave the date he was originally schedule due to the lab at [place] being too hot. Says having hard time reaching sleep lab to r/s, so told him would send them a message to call him. Pt says willing to go to [place] or [place]. Chat sent to sleep lab Hub to contact pt at [phone]. documented in this encounterUniversity Hospitals Beachwood Medical CenterWSC Group [id number] Telephone encounter Note* Telephone Encounter - Aliza Escalera - 12/05/2023 9:58 AM EDT Pt came into office, requesting help to reach the sleep lab to get his sleep study rescheduled. States he had to leave the date he was originally schedule due to the lab at [place] being too hot. Says having hard time reaching sleep lab to r/s, so told him would send them a message to call him. Pt says willing to go to [place] or [place]. Chat sent to sleep lab Hub to contact pt at [phone]. [facility] [employer] [id number] Miscellaneous Notes* Telephone Encounter - Aliza Escalera - 08/27/2023 10:11 AM EDT ----- Message from SONNY Denis sent at 08/24/2023 10:25 AM EST ----- EF >45% ok for ASV * Telephone Encounter - Aliza Escalera - 08/27/2023 10:11 AM EDT Noted below in sleep lab encounter and on appt desk for techs for titration appt documented in this encounterK[facility] [employer] [id number] Telephone encounter Note* Telephone Encounter - Aliza Escalera - 08/27/2023 10:11 AM EDT ----- Message from Gregoria Ralph APRN-JALIL sent at 08/24/2023 10:25 AM EST ----- EF >45% ok for ASV [facility] [employer] [id number] Telephone encounter Note* Telephone Encounter - Aliza Escalera - 08/27/2023 10:11 AM EDT Noted below in sleep lab encounter and on appt desk for techs for titration appt [facility]51 [id number] Miscellaneous Notes* Telephone Encounter - Zoraida Rosario - 08/17/2023 9:53 AM EST 08/15 received CPAP order 08/16 Scheduled CPAP at [facility] 6 Confirmation mailed and emailed [employer] Medicare CPAP order and 08/15 Loree notes in [facility] With TCO2 monitoring. Please obtain baseline in supine position. Starting pressure IPAP25 EPAP10 PS5 notes CSA on last download plans for Echo prior to titration documented in this encounterKettering [facility] [employer] [id number] Telephone encounter Note* Telephone Encounter - Zoraida [...] for Echo prior to titration [facility]51 [id number] History of Present illness Narrative* Gregoria Ralph, DERMATOLOGIST MANAGING PARTNER-SEWER DIGGER - 08/15/2023 1:15 PM EST Images from [...] humidifier. Cleaning supplies with soap and water. [place] Sleepiness Scale: Sitting and Reading: (!) Moderate [...] (CMS-HCC) PROSTATE COPD (chronic obstructive pulmonary disease) ([facility]) Unknown Diabetes mellitus type 2, controlled ([facility]) GERD (gastroesophageal reflux disease) History of placement [...] history of tobacco use, presenting hazards to [facility] - [place] low dose lung screenin (3mo [...] Standing Expiration Date: 08/15/2024 Order Specific Question: [facility] required diagnosis: Answer: Personal history of [...] Order Specific Question: Release to patient via [employer]? Answer: Immediate [1] Polysomnography 4 or more [...] not to drive if sleepy, and to fur puller if sleepiness occurs while driving. Above [...] that have escaped final proofreading. Gregoria Ralph [facility] Office: [phone] 2:57 PM on 08/15/2023 CC: MD Gregoria GONZALEZ APRN-CNP 08/16/23 1438 documented in this encounterMemorial Health System [facility]02-28-2024 Instructions* Patient Instructions* SONNY Denis - 08/15/2023 1:15 PM EST If you re looking for general health and wellness resources, please visit [email or web address]. documented in this encounterMemorial Health System [facility] Hospital02-15-2024 Miscellaneous Notes* Telephone Encounter - Aliza [...] still to schedule appt. documented in this encounterMemorial Health System [facility]etta [facility] Hospital02-15-2024 Telephone encounter Note* Telephone Encounter - Aliza Escalera - 08/02/2023 5:34 PM EST Received sleep referral from Valeria Mckeon NP. Pt is already an established pt and last saw in 2020- was recommended to follow up with [facility]. However he was a no show for his last 2 appt with our office. Chat to Tahmina to advise if still to schedule appt. [place] [address]-12-2024 History of Present illness Narrative* Ashli Ross DO - 07/30/2023 12:53 PM ESTAssociated Problem(s): Type 2 diabetes mellitus with diabetic polyneuropathy, with long-term current use of insulin ([facility]) During the appointment today all pertinent [...] Breakfast Lunch Dinner Snacks Drinks Premade meal (Ruso and dressing) (Mac and cheese) Protein shake [...] polyneuropathy, with long-term current use of insulin ([facility]) During the appointment today all pertinent [...] index (BMI) of36.0 to 36.9 in adult ([facility]) - Primary Follow up in about [...] UNITS A DAY) LANCETS (ONETOUCH DELICA PLUS [id number]) [facility] use to test BLOOD SUGAR THREE TIMES [...] ER 50 mg tablet,extended release 24 hr [employer]TOUCH ULTRA TEST STRIP use to test BLOOD SUGAR THREE TIMES DAILY SIMVASTATIN (ZOCOR) 40 MG TABLET Take 40 mg by mouth in the morning and 40 mg before bedtime. SPIRONOLACTONE (ALDACTONE) 50 MG TABLET TAKE 1 TABLET BY MOUTH DAILY Modified Medications No medications on file Discontinued Medications CONTINUOUS BLOOD GLUC SENSOR (FREESTYLE CORNELIUS 2 SENSOR) [facility] Use as directed LOPERAMIDE (IMODIUM) 2 MG CAPSULE Take 2 mg by mouth in the morning and 2 mg before bedtime. METHOCARBAMOL (ROBAXIN) 750 MG TABLET Take 1 tablet (750 mg) by mouth in the morning and 1 tablet (750 mg) at noon and 1 tablet (750 mg) in the evening and 1 tablet (750 mg) before bedtime. documented in this encounterChristian [id number] [facility] noteLutheran Hospital10-24-2023 Evaluation note* Encounter Date Diagnosis Assessment Notes Treatment Notes Treatment Clinical Notes Mar, GERD (gastroesophageal reflux disease) (ICD-10 - K21.9) The patient continues to complain of ongoing regurgitation. He is taking Lansoprazole 30 mg dialy & we will increase this to 30 mg bid. Mar, Hemorrhoids (ICD-10 - K64.9) Mar, Alternating constipation and diarrhea (ICD-10 - R19.8) [employer] Other 10-03-2023 Evaluation note* Encounter Date Diagnosis Assessment Notes Treatment Notes Treatment Clinical Notes Mar, Gastroesophageal ref lux disease with esophagitis (ICD-10 - K21.0) [employer] Other 08-28-2023 Hospital Discharge instructions Patient Education [...] under a microscope. This is called the [place] score and the total score can range [...] similar to normal prostate cells (moderately differentiated). [place] 8, 9, or 10: This indicates that [...] stress of having cancer. General instructions Take zxld-rcb-ibvcsqd and prescription medicines only as told by your health care provider. If you have to go to the hospital, notify your cancer specialist (oncologist). Keep all follow-up visits. This is important. Where to find more information [place] [employer]: www.cancer.org [place] [employer] Oncology: www.cancer.net National Cancer [place]: www.cancer.gov Contact a health care provider if: [...] provider. Document Revised: 08/31/2021 Document Reviewed: 08/31/2021 [employer] Patient Education 2022 Ischemia Care Follow Up Care 02/03/2022 09:06:37 With:NICOLA RAYMUNDO, Peterson Owens, URL Address: [facility] [address], [place] [address] [phone] When: Unknown Comments:1 yr w/ PSA [facility] 04-05-2023 Evaluation note* Encounter Date Diagnosis Assessment Notes Treatment Notes Treatment Clinical Notes Sep, Gastroesophageal ref lux disease with esophagitis (ICD-10 - K21.0) [employer] Other 02-06-[address] [facility]02-02-2023 Evaluation note* Encounter Date Diagnosis Assessment Notes Treatment Notes Treatment Clinical Notes Jul, Diarrhea (ICD-10 - R19.7) Jul, GERD (gastroesophageal reflux disease) (ICD-10 - K21.9) Jul, Hemorrhoids (ICD-10 - K64.9) PATIENT TO START ANUSOL CREAM USE SITZ BATH NEEDED Jul, Dysphagia (ICD-10 - R13.10) [employer] Other 10-28-2022 NotePROCEDURE: XR FOOT RT MIN 3 VIEWS COMPARISON: None. HISTORY: Pain in right foot FINDINGS: BONES:No acute fracture or dislocation. Persistent hammertoe deformities. Moderate hallux valgus. 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 Bulky enthesopathic spurring of the calcaneus SOFT TISSUES:Negative. No visible soft tissue swelling. EFFUSION:None visible. OTHER: Negative. IMPRESSION: Degenerative changes Electronically authenticated by: SORIN SHORE Date: 2022-04-14 18:01[facility]08-19-2022 Hospital Discharge instructions Patient Education [...] urethra. Follow these instructions at home: Take qbjf-rbb-pcevjgd and prescription medicines only as told by [...] 06/04/2006 Document Revised: 04/29/2019 Document Reviewed: 07/09/2017 [employer] Patient Education 2019 [employer] Follow Up Care 08/05/2021 10:59:30 With:NICOLA RAYMUNDO, Peterson Owens, URL Address: [facility] [address] [place] [address]- When:1 year Comments:W/ TONO [facility] 08-17-2021 NoteHNO ID: [id number] Author: Fawad Diaz MD Service: ? Author [...] cc: Dank Campo MD (DrC) [address] [place] [address] Dr. Petersen Portions of the above note extracted and edited from previous visit as well as active information included in the EMR.[facility] 11-04-2020 NoteHNO ID: [id number] Author: Fawad Diaz MD Service: ? Author Type: Physician Type: Progress Notes Filed: 11/04/2020 9:44 AM Note Text: Radiation Oncology - Follow Up Note PATIENT NAME: Milad Seymour PATIENT DIAGNOSIS: DIAGNOSIS: Prostate adenocarcinoma, initial PSA 14.65, biopsy [place] score 3 + 3 = 6 (grade [...] ASSESSMENT/PLAN:DIAGNOSIS: Prostate adenocarcinoma, initial PSA 14.65, biopsy [place] score 3 + 3 = 6 (grade [...] Fawad Diaz MD cc: Dank Campo MD ([facility]) [address] [place] [address] Dr. [facility]Evaluation + Plan note Future Appointments Appointment Date:02/12/2023 09:15:00 AM Scheduled Provider:Peterson PETERSEN MD Location:[facility] Appointment Type:URO Office Visit Diagnostic Tests Pending * PSA Total 02/03/22 [facility] evaluation + Plan note Future Appointments Appointment Date:02/12/2023 09:15:00 AM Scheduled Provider:Peterson PETERSEN MD Location:[facility] Appointment Type:URO Office Visit [facility] evaluation + Plan note Future Appointments Appointment Date:02/15/2024 08:15:00 AM Scheduled Provider:[facility] Office Visit Diagnostic Tests Pending * PSA Total 02/12/23 [facility] evaluation + Plan note Future Appointments Appointment Date:02/04/2024 11:30:00 AM Scheduled Provider:Peterson PETERSEN MD Location:[facility] Appointment Type:URO Office Visit [facility] evaluation + Plan note Future Appointments Appointment Date:02/09/2025 08:45:00 AM Scheduled Provider:Peterson PETERSEN MD Location:[facility] Appointment Type:URO Office Visit Diagnostic Tests Pending * PSA Total 02/04/24 [facility] evaluation noteNo assessment information available [facility] Work Phone: Evaluation noteNo InformationNort Wavo.[employer] Other Evaluation note* Diagnosis Class 2 severe obesity due to excess calories with serious comorbidity and body mass index (BMI) of 36.0 to 36.9 in adult ([facility])- Primary Type 2 diabetes mellitus with diabetic polyneuropathy, with long-term current use of insulin ([facility]) documented in this encounter [facility] HealthcareEvaluation note* Diagnosis Onset Date Resolution Status H/O rotator cuff surgery acu te [facility] Work Phone: Evaluation note* Diagnosis Onset Date Resolution Status Diarrhea acute GERD (gastroesophageal reflux disease) acute [facility] Work Phone: Evaluation note* Diagnosis Preop examination- Primary Unspecified pre-operative examination documented in this encounter [facility] HealthcareEvaluation note* Diagnosis Internal derangement of left shoulder- Primary documented in this encounter [facility] HealthcareEvaluation note* Diagnosis Type 2 diabetes mellitus with diabetic polyneuropathy, with long-term current use of insulin ([facility])- Primary Class 2 severe obesity due to excess calories with serious comorbidity and body mass index (BMI) of 35.0 to 35.9 in adult [place] Primary Type 2 diabetes mellitus with diabetic polyneuropathy, with long-term current use of insulin ([facility]) Long-term insulin use ([facility]) Lumbar spondylosis- Primary Lumbosacral spondylosis without myelopathy Benign essential hypertension ([facility]) Essential hypertension, benign Bilateral leg edema Edema Class 2 severe obesity due to excess calories with serious comorbidity and body mass index (BMI) of 36.0 to 36.9 in adult ([facility] Primary Type 2 diabetes mellitus with diabetic polyneuropathy, with long-term current use of insulin ([facility]) Benign essential hypertension ([facility])- Primary Essential hypertension, benign Lumbar spondylosis Lumbosacral spondylosis without myelopathy Bilateral leg edema Edema Type 2 diabetes mellitus with diabetic polyneuropathy, with long-term current use of insulin ([facility]) Hypercholesteremia [place] Pure hypercholesterolemia Encounter for long-term (current) use of medications Encounter for long-term (current) use of other medications Obesity (BMI 30-39.9) Body mass index [BMI] 36.0-36.9, adult (Z68.36) JARAD (generalized anxiety disorder) ([facility])- Primary Generalized anxiety disorder Benign essential hypertension ([facility]) Essential hypertension, benign Class 2 severe obesity due to excess calories with serious comorbidity and body mass index (BMI) of 35.0 to 35.9 in adult ([facility] Primary Type 2 diabetes mellitus with diabetic polyneuropathy, with long-term current use of insulin ([facility]) Long-term insulin use ([facility]/HCC) Benign essential hypertension (CMS/HCC)- Primary Essential hypertension, benign JARAD (generalized anxiety disorder) ([facility]) Generalized anxiety disorder Bilateral leg edema Edema Lumbar spondylosis Lumbosacral spondylosis without myelopathy Benign essential hypertension (CMS/HCC)- Primary Essential hypertension, benign JARAD (generalized anxiety disorder) (CMS/HCC) Generalized anxiety disorder Lumbar spondylosis Lumbosacral spondylosis without myelopathy Bilateral leg edema Edema Prostate cancer ([facility]) Malignant neoplasm of prostate Type 2 diabetes mellitus with hyperglycemia, with long-term current use of insulin ([facility]) Class 2 severe obesity due to excess calories with serious comorbidity and body mass index (BMI) of 35.0 to 35.9 in adult ([facility])- Primary Type 2 diabetes mellitus with hyperglycemia, with long-term current use of insulin ([facility]) Type 2 diabetes mellitus with diabetic polyneuropathy, with long-term current use of insulin ([facility]) Long-term insulin use ([facility]) Type 2 diabetes mellitus with stage 3a chronic kidney disease, with long-term current use of insulin ([facility]) ([facility]) Pre-op examination- Primary Preop examination Unspecified pre-operative examination documented in this encounter [facility] HealthcareEvaluation note* Diagnosis Type 2 diabetes mellitus with diabetic polyneuropathy, with long-term current use of insulin ([facility])- Primary Class 2 severe obesity due to excess calories with serious comorbidity and body mass index (BMI) of 35.0 to 35.9 in adult ([facility])- Primary Type 2 diabetes mellitus with diabetic polyneuropathy, with long-term current use of insulin ([facility]) Long-term insulin use ([facility]) Lumbar spondylosis- Primary Lumbosacral spondylosis without myelopathy Benign essential hypertension ([facility]) Essential hypertension, benign Bilateral leg edema Edema Class 2 severe obesity due to excess calories with serious comorbidity and body mass index (BMI) of 36.0 to 36.9 in adult ([facility])- Primary Type 2 diabetes mellitus with diabetic polyneuropathy, with long-term current use of insulin ([facility]/HCC) Benign essential hypertension (CMS/HCC)- Primary Essential hypertension, benign Lumbar spondylosis Lumbosacral spondylosis without myelopathy Bilateral leg edema Edema Type 2 diabetes mellitus with diabetic polyneuropathy, with long-term current use of insulin ([facility]) Hypercholesteremia ([facility]) Pure hypercholesterolemia Encounter for long-term (current) use of medications Encounter for long-term (current) use of other medications Obesity (BMI 30-39.9) Body mass index [BMI] 36.0-36.9, adult (Z68.36) JARAD (generalized anxiety disorder) ([facility])- Primary Generalized anxiety disorder Benign essential hypertension ([facility]) Essential hypertension, benign Class 2 severe obesity due to excess calories with serious comorbidity and body mass index (BMI) of 35.0 to 35.9 in adult ([facility])- Primary Type 2 diabetes mellitus with diabetic polyneuropathy, with long-term current use of insulin ([facility]) Long-term insulin use ([facility]) Benign essential hypertension ([facility])- Primary Essential hypertension, benign JARAD (generalized anxiety disorder) ([facility]) Generalized anxiety disorder Bilateral leg edema Edema Lumbar spondylosis Lumbosacral spondylosis without myelopathy Benign essential hypertension ([facility])- Primary Essential hypertension, benign JAARD (generalized anxiety disorder) ([facility]) Generalized anxiety disorder Lumbar spondylosis Lumbosacral spondylosis without myelopathy Bilateral leg edema Edema Prostate cancer ([facility]) Malignant neoplasm of prostate Type 2 diabetes mellitus with hyperglycemia, with long-term current use of insulin ([facility]) Class 2 severe obesity due to excess calories with serious comorbidity and body mass index (BMI) of 35.0 to 35.9 in adult ([facility])- Primary Type 2 diabetes mellitus with hyperglycemia, with long-term current use of insulin ([facility]) Type 2 diabetes mellitus with diabetic polyneuropathy, with long-term current use of insulin ([facility]) Long-term insulin use ([facility]) Type 2 diabetes mellitus with stage 3a chronic kidney disease, with long-term current use of insulin ([facility]) ([facility]) Essential (primary) hypertension ([facility]) Unspecified essential hypertension documented in this encounter [facility]Evaluation [facility]* Diagnosis Type 2 diabetes mellitus with diabetic polyneuropathy, with long-term current use of insulin ([facility])- Primary Class 2 severe obesity due to excess calories with serious comorbidity and body mass index (BMI) of 35.0 to 35.9 in adult ([facility])- Primary Type 2 diabetes mellitus with diabetic polyneuropathy, with long-term current use of insulin ([facility]) Long-term insulin use ([facility]) Lumbar spondylosis- Primary Lumbosacral spondylosis without myelopathy Benign essential hypertension ([facility]) Essential hypertension, benign Bilateral leg edema Edema Class 2 severe obesity due to excess calories with serious comorbidity and body mass index (BMI) of 36.0 to 36.9 in adult ([facility])- Primary Type 2 diabetes mellitus with diabetic polyneuropathy, with long-term current use of insulin ([facility]) Benign essential hypertension ([facility])- Primary Essential hypertension, benign Lumbar spondylosis Lumbosacral spondylosis without myelopathy Bilateral leg edema Edema Type 2 diabetes mellitus with diabetic polyneuropathy, with long-term current use of insulin ([facility]) [facility] Pure hypercholesterolemia Encounter for long-term (current) use of medications Encounter for long-term (current) use of other medications Obesity (BMI 30-39.9) Body mass index [BMI] 36.0-36.9, adult (Z68.36) JARAD (generalized anxiety disorder) ([facility])- Primary Generalized anxiety disorder Benign essential hypertension ([facility]) Essential hypertension, benign Class 2 severe obesity due to excess calories with serious comorbidity and body mass index (BMI) of 35.0 to 35.9 in adult ([facility] Primary Type 2 diabetes mellitus with diabetic polyneuropathy, with long-term current use of insulin [facility] Long-term insulin use [facility] Benign essential hypertension ([facility])- Primary Essential hypertension, benign JARAD (generalized anxiety disorder) ([facility]) Generalized anxiety disorder Bilateral leg edema Edema Lumbar spondylosis Lumbosacral spondylosis without myelopathy Benign essential hypertension ([facility])- Primary Essential hypertension, benign JARAD (generalized anxiety disorder) ([facility]) Generalized anxiety disorder Lumbar spondylosis Lumbosacral spondylosis without myelopathy Bilateral leg edema Edema Prostate cancer ([facility]) Malignant neoplasm of prostate Type 2 diabetes mellitus with hyperglycemia, with long-term current use of insulin ([facility]) Class 2 severe obesity due to excess calories with serious comorbidity and body mass index (BMI) of 35.0 to 35.9 in adult [place] [place] Primary Type 2 diabetes mellitus with hyperglycemia, with long-term current use of insulin [facility] Type 2 diabetes mellitus with diabetic polyneuropathy, with long-term current use of insulin ([facility]/HCC) Long-term insulin use ([facility]) Type 2 diabetes mellitus with stage 3a chronic kidney disease, with long-term current use of insulin (HCC) ([facility]) Internal derangement of left shoulder- Primary Type 2 diabetes mellitus with diabetic polyneuropathy, with long-term current use of insulin ([facility]) documented in this encounter [facility]* Diagnosis Type 2 diabetes mellitus with diabetic polyneuropathy, with long-term current use of insulin ([facility])- Primary Class 2 severe obesity due to excess calories with serious comorbidity and body mass index (BMI) of 35.0 to 35.9 in adult ([facility])- Primary Type 2 diabetes mellitus with diabetic polyneuropathy, with long-term current use of insulin ([facility]) Long-term insulin use ([facility]) Lumbar spondylosis- Primary Lumbosacral spondylosis without myelopathy Benign essential hypertension ([facility]) Essential hypertension, benign Bilateral leg edema Edema Class 2 severe obesity due to excess calories with serious comorbidity and body mass index (BMI) of 36.0 to 36.9 in adult ([facility])- Primary Type 2 diabetes mellitus with diabetic polyneuropathy, with long-term current use of insulin ([facility]) Benign essential hypertension ([facility])- Primary Essential hypertension, benign Lumbar spondylosis Lumbosacral spondylosis without myelopathy Bilateral leg edema Edema Type 2 diabetes mellitus with diabetic polyneuropathy, with long-term current use of insulin ([facility]) Hypercholesteremia ([facility]) Pure hypercholesterolemia Encounter for long-term (current) use of medications Encounter for long-term (current) use of other medications Obesity (BMI 30-39.9) Body mass index [BMI] 36.0-36.9, adult (Z68.36) JARAD (generalized anxiety disorder) ([facility])- Primary Generalized anxiety disorder Benign essential hypertension ([facility]) Essential hypertension, benign Class 2 severe obesity due to excess calories with serious comorbidity and body mass index (BMI) of 35.0 to 35.9 in adult ([facility])- Primary Type 2 diabetes mellitus with diabetic polyneuropathy, with long-term current use of insulin ([facility]) Long-term insulin use ([facility]) Benign essential hypertension ([facility])- Primary Essential hypertension, benign JARAD (generalized anxiety disorder) ([facility]) Generalized anxiety disorder Bilateral leg edema Edema Lumbar spondylosis Lumbosacral spondylosis without myelopathy Benign essential hypertension ([facility])- Primary Essential hypertension, benign JARAD (generalized anxiety disorder) ([facility]) Generalized anxiety disorder Lumbar spondylosis Lumbosacral spondylosis without myelopathy Bilateral leg edema Edema Prostate cancer ([facility]) Malignant neoplasm of prostate Type 2 diabetes mellitus with hyperglycemia, with long-term current use of insulin ([facility]) Class 2 severe obesity due to excess calories with serious comorbidity and body mass index (BMI) of 35.0 to 35.9 in adult ([facility])- Primary Type 2 diabetes mellitus with hyperglycemia, with long-term current use of insulin ([facility]) Type 2 diabetes mellitus with diabetic polyneuropathy, with long-term current use of insulin ([facility]) Long-term insulin use ([facility]) Type 2 diabetes mellitus with stage 3a chronic kidney disease, with long-term current use of insulin ([facility]) ([facility]) Class 2 severe obesity due to excess calories with serious comorbidity and body mass index (BMI) of 35.0 to 35.9 in adult ([facility])- Primary Type 2 diabetes mellitus with diabetic polyneuropathy, with long-term current use of insulin ([facility]) Type 2 diabetes mellitus with stage 3a chronic kidney disease, with long-term current use of insulin ([facility]) ([facility]) Long-term insulin use ([facility]) documented in this encounter [facility]* Diagnosis Type 2 diabetes mellitus with diabetic polyneuropathy, with long-term current use of insulin ([facility])- Primary Class 2 severe obesity due to excess calories with serious comorbidity and body mass index (BMI) of 35.0 to 35.9 in adult ([facility])- Primary Type 2 diabetes mellitus with diabetic polyneuropathy, with long-term current use of insulin ([facility]) Long-term insulin use ([facility]) Lumbar spondylosis- Primary Lumbosacral spondylosis without myelopathy Benign essential hypertension ([facility]) Essential hypertension, benign Bilateral leg edema Edema Class 2 severe obesity due to excess calories with serious comorbidity and body mass index (BMI) of 36.0 to 36.9 in adult ([facility])- Primary Type 2 diabetes mellitus with diabetic polyneuropathy, with long-term current use of insulin ([facility]) Benign essential hypertension ([facility])- Primary Essential hypertension, benign Lumbar spondylosis Lumbosacral spondylosis without myelopathy Bilateral leg edema Edema Type 2 diabetes mellitus with diabetic polyneuropathy, with long-term current use of insulin ([facility]) Hypercholesteremia ([facility]) Pure hypercholesterolemia Encounter for long-term (current) use of medications Encounter for long-term (current) use of other medications Obesity (BMI 30-39.9) Body mass index [BMI] 36.0-36.9, adult (Z68.36) JARAD (generalized anxiety disorder) ([facility])- Primary Generalized anxiety disorder Benign essential hypertension ([facility]) Essential hypertension, benign Class 2 severe obesity due to excess calories with serious comorbidity and body mass index (BMI) of 35.0 to 35.9 in adult ([facility])- Primary Type 2 diabetes mellitus with diabetic polyneuropathy, with long-term current use of insulin ([facility]) Long-term insulin use ([facility]) Benign essential hypertension ([facility])- Primary Essential hypertension, benign JARAD (generalized anxiety disorder) ([facility]) Generalized anxiety disorder Bilateral leg edema Edema Lumbar spondylosis Lumbosacral spondylosis without myelopathy Benign essential hypertension ([facility])- Primary Essential hypertension, benign JARAD (generalized anxiety disorder) ([facility]) Generalized anxiety disorder Lumbar spondylosis Lumbosacral spondylosis without myelopathy Bilateral leg edema Edema Prostate cancer ([facility]) Malignant neoplasm of prostate Type 2 diabetes mellitus with hyperglycemia, with long-term current use of insulin ([facility]) Class 2 severe obesity due to excess calories with serious comorbidity and body mass index (BMI) of 35.0 to 35.9 in adult ([facility])- Primary Type 2 diabetes mellitus with hyperglycemia, with long-term current use of insulin ([facility]) Type 2 diabetes mellitus with diabetic polyneuropathy, with long-term current use of insulin ([facility]) Long-term insulin use ([facility]) Type 2 diabetes mellitus with stage 3a chronic kidney disease, with long-term current use of insulin ([facility]) ([facility]) Class 2 severe obesity due to excess calories with serious comorbidity and body mass index (BMI) of 35.0 to 35.9 in adult [place] [place] Primary Type 2 diabetes mellitus with diabetic polyneuropathy, with long-term current use of insulin ([facility]) Type 2 diabetes mellitus with stage 3a chronic kidney disease, with long-term current use of insulin ([facility]) ([facility]) Long-term insulin use ([facility]) S/P arthroscopy of left shoulder- Primary documented in this encounter [facility]* Diagnosis Type 2 diabetes mellitus with diabetic polyneuropathy, with long-term current use of insulin ([facility])- Primary Class 2 severe obesity due to excess calories with serious comorbidity and body mass index (BMI) of 35.0 to 35.9 in adult ([facility])- Primary Type 2 diabetes mellitus with diabetic polyneuropathy, with long-term current use of insulin ([facility]) Long-term insulin use ([facility]) Lumbar spondylosis- Primary Lumbosacral spondylosis without myelopathy Benign essential hypertension ([facility]) Essential hypertension, benign Bilateral leg edema Edema Class 2 severe obesity due to excess calories with serious comorbidity and body mass index (BMI) of 36.0 to 36.9 in adult [place] [place] Primary Type 2 diabetes mellitus with diabetic polyneuropathy, with long-term current use of insulin ([facility]) Benign essential hypertension ([facility])- Primary Essential hypertension, benign Lumbar spondylosis Lumbosacral spondylosis without myelopathy Bilateral leg edema Edema Type 2 diabetes mellitus with diabetic polyneuropathy, with long-term current use of insulin ([facility]) Hypercholesteremia ([facility]) Pure hypercholesterolemia Encounter for long-term (current) use of medications Encounter for long-term (current) use of other medications Obesity (BMI 30-39.9) Body mass index [BMI] 36.0-36.9, adult (Z68.36) JARAD (generalized anxiety disorder) ([facility])- Primary Generalized anxiety disorder Benign essential hypertension ([facility]) Essential hypertension, benign Class 2 severe obesity due to excess calories with serious comorbidity and body mass index (BMI) of 35.0 to 35.9 in adult [place] [place] Primary Type 2 diabetes mellitus with diabetic polyneuropathy, with long-term current use of insulin ([facility]) Long-term insulin use ([facility]) Benign essential hypertension ([facility])- Primary Essential hypertension, benign JARAD (generalized anxiety disorder) ([facility]) Generalized anxiety disorder Bilateral leg edema Edema Lumbar spondylosis Lumbosacral spondylosis without myelopathy Benign essential hypertension ([facility])- Primary Essential hypertension, benign JARAD (generalized anxiety disorder) ([facility]) Generalized anxiety disorder Lumbar spondylosis Lumbosacral spondylosis without myelopathy Bilateral leg edema Edema Prostate cancer ([facility]) Malignant neoplasm of prostate Type 2 diabetes mellitus with hyperglycemia, with long-term current use of insulin ([facility]) Class 2 severe obesity due to excess calories with serious comorbidity and body mass index (BMI) of 35.0 to 35.9 in adult ([facility])- Primary Type 2 diabetes mellitus with hyperglycemia, with long-term current use of insulin ([facility]) Type 2 diabetes mellitus with diabetic polyneuropathy, with long-term current use of insulin ([facility]) Long-term insulin use ([facility]) Type 2 diabetes mellitus with stage 3a chronic kidney disease, with long-term current use of insulin ([facility]) ([facility]) Class 2 severe obesity due to excess calories with serious comorbidity and body mass index (BMI) of 35.0 to 35.9 in adult ([facility])- Primary Type 2 diabetes mellitus with diabetic polyneuropathy, with long-term current use of insulin ([facility]) Type 2 diabetes mellitus with stage 3a chronic kidney disease, with long-term current use of insulin ([facility]) [place] [place] Long-term insulin use ([facility]) S/P arthroscopy of left shoulder- Primary documented in this encounter [facility]* Diagnosis Type 2 diabetes mellitus with diabetic polyneuropathy, with long-term current use of insulin ([facility])- Primary Class 2 severe obesity due to excess calories with serious comorbidity and body mass index (BMI) of 35.0 to 35.9 in adult ([facility])- Primary Type 2 diabetes mellitus with diabetic polyneuropathy, with long-term current use of insulin ([facility]) Long-term insulin use ([facility]) Lumbar spondylosis- Primary Lumbosacral spondylosis without myelopathy Benign essential hypertension ([facility]) Essential hypertension, benign Bilateral leg edema Edema Class 2 severe obesity due to excess calories with serious comorbidity and body mass index (BMI) of 36.0 to 36.9 in adult ([facility])- Primary Type 2 diabetes mellitus with diabetic polyneuropathy, with long-term current use of insulin ([facility]) Benign essential hypertension ([facility])- Primary Essential hypertension, benign Lumbar spondylosis Lumbosacral spondylosis without myelopathy Bilateral leg edema Edema Type 2 diabetes mellitus with diabetic polyneuropathy, with long-term current use of insulin ([facility]) Hypercholesteremia ([facility]) Pure hypercholesterolemia Encounter for long-term (current) use of medications Encounter for long-term (current) use of other medications Obesity (BMI 30-39.9) Body mass index [BMI] 36.0-36.9, adult (Z68.36) JARAD (generalized anxiety disorder) ([facility])- Primary Generalized anxiety disorder Benign essential hypertension ([facility]) Essential hypertension, benign Class 2 severe obesity due to excess calories with serious comorbidity and body mass index (BMI) of 35.0 to 35.9 in adult [place] [place] Primary Type 2 diabetes mellitus with diabetic polyneuropathy, with long-term current use of insulin ([facility]) Long-term insulin use ([facility]) Benign essential hypertension ([facility])- Primary Essential hypertension, benign JARAD (generalized anxiety disorder) ([facility]) Generalized anxiety disorder Bilateral leg edema Edema Lumbar spondylosis Lumbosacral spondylosis without myelopathy Benign essential hypertension ([facility])- Primary Essential hypertension, benign JARAD (generalized anxiety disorder) ([facility]) Generalized anxiety disorder Lumbar spondylosis Lumbosacral spondylosis without myelopathy Bilateral leg edema Edema Prostate cancer ([facility]) Malignant neoplasm of prostate Type 2 diabetes mellitus with hyperglycemia, with long-term current use of insulin ([facility]) Class 2 severe obesity due to excess calories with serious comorbidity and body mass index (BMI) of 35.0 to 35.9 in adult [place] [place] Primary Type 2 diabetes mellitus with hyperglycemia, with long-term current use of insulin ([facility]) Type 2 diabetes mellitus with diabetic polyneuropathy, with long-term current use of insulin ([facility]) Long-term insulin use ([facility]) Type 2 diabetes mellitus with stage 3a chronic kidney disease, with long-term current use of insulin ([facility]) [place] [place] Class 2 severe obesity due to excess calories with serious comorbidity and body mass index (BMI) of 35.0 to 35.9 in adult [place] [place] Primary Type 2 diabetes mellitus with diabetic polyneuropathy, with long-term current use of insulin ([facility]) Type 2 diabetes mellitus with stage 3a chronic kidney disease, with long-term current use of insulin (HCC) ([facility]) Long-term insulin use ([facility]) S/P arthroscopy of left shoulder- Primary documented in this encounter [facility]* Diagnosis Type 2 diabetes mellitus with diabetic polyneuropathy, with long-term current use of insulin ([facility])- Primary Class 2 severe obesity due to excess calories with serious comorbidity and body mass index (BMI) of 35.0 to 35.9 in adult ([facility])- Primary Type 2 diabetes mellitus with diabetic polyneuropathy, with long-term current use of insulin ([facility]) Long-term insulin use ([facility]) Lumbar spondylosis- Primary Lumbosacral spondylosis without myelopathy Benign essential hypertension ([facility]) Essential hypertension, benign Bilateral leg edema Edema Class 2 severe obesity due to excess calories with serious comorbidity and body mass index (BMI) of 36.0 to 36.9 in adult ([facility])- Primary Type 2 diabetes mellitus with diabetic polyneuropathy, with long-term current use of insulin ([facility]) Benign essential hypertension ([facility])- Primary Essential hypertension, benign Lumbar spondylosis Lumbosacral spondylosis without myelopathy Bilateral leg edema Edema Type 2 diabetes mellitus with diabetic polyneuropathy, with long-term current use of insulin ([facility]) Hypercholesteremia ([facility] [facility] Pure hypercholesterolemia Encounter for long-term (current) use of medications Encounter for long-term (current) use of other medications Obesity (BMI 30-39.9) Body mass index [BMI] 36.0-36.9, adult (Z68.36) JARAD (generalized anxiety disorder) ([facility])- Primary Generalized anxiety disorder Benign essential hypertension ([facility]) Essential hypertension, benign Class 2 severe obesity due to excess calories with serious comorbidity and body mass index (BMI) of 35.0 to 35.9 in adult ([facility])- Primary Type 2 diabetes mellitus with diabetic polyneuropathy, with long-term current use of insulin ([facility]) Long-term insulin use ([facility]) Benign essential hypertension ([facility])- Primary Essential hypertension, benign JARAD (generalized anxiety disorder) ([facility]) Generalized anxiety disorder Bilateral leg edema Edema Lumbar spondylosis Lumbosacral spondylosis without myelopathy Benign essential hypertension ([facility])- Primary Essential hypertension, benign JARAD (generalized anxiety disorder) ([facility]) Generalized anxiety disorder Lumbar spondylosis Lumbosacral spondylosis without myelopathy Bilateral leg edema Edema Prostate cancer ([facility]) Malignant neoplasm of prostate Type 2 diabetes mellitus with hyperglycemia, with long-term current use of insulin ([facility]) Class 2 severe obesity due to excess calories with serious comorbidity and body mass index (BMI) of 35.0 to 35.9 in adult [place] Primary Type 2 diabetes mellitus with hyperglycemia, with long-term current use of insulin ([facility]) Type 2 diabetes mellitus with diabetic polyneuropathy, with long-term current use of insulin [place] use [place] Type 2 diabetes mellitus with stage 3a chronic kidney disease, with long-term current use of insulin ([facility]) [place] Class 2 severe obesity due to excess calories with serious comorbidity and body mass index (BMI) of 35.0 to 35.9 in adult ([facility] Primary Type 2 diabetes mellitus with diabetic polyneuropathy, with long-term current use of insulin ([facility]) Type 2 diabetes mellitus with stage 3a chronic kidney disease, with long-term current use of insulin ([facility]) [place] use [place] S/P arthroscopy of left shoulder- Primary Left shoulder pain, unspecified chronicity documented in this encounter [facility] HealthcareEvaluation note* Diagnosis Internal derangement of left shoulder- Primary Acute pain of left shoulder documented in this encounter [facility]* Diagnosis Type 2 diabetes mellitus with diabetic polyneuropathy, with long-term current use of insulin ([facility])- Primary Class 2 severe obesity due to excess calories with serious comorbidity and body mass index (BMI) of 35.0 to 35.9 in adult [place] [place] Primary Type 2 diabetes mellitus with diabetic polyneuropathy, with long-term current use of insulin [place] use [place] Lumbar spondylosis- Primary Lumbosacral spondylosis without myelopathy Benign essential hypertension ([facility]) Essential hypertension, benign Bilateral leg edema Edema Class 2 severe obesity due to excess calories with serious comorbidity and body mass index (BMI) of 36.0 to 36.9 in adult [place] [place] Primary Type 2 diabetes mellitus with diabetic polyneuropathy, with long-term current use of insulin ([facility]) Benign essential hypertension ([facility])- Primary Essential hypertension, benign Lumbar spondylosis Lumbosacral spondylosis without myelopathy Bilateral leg edema Edema Type 2 diabetes mellitus with diabetic polyneuropathy, with long-term current use of insulin ([facility]) Hypercholesteremia ([facility]) Pure hypercholesterolemia Encounter for long-term (current) use of medications Encounter for long-term (current) use of other medications Obesity (BMI 30-39.9) Body mass index [BMI] 36.0-36.9, adult (Z68.36) JARAD (generalized anxiety disorder) ([facility])- Primary Generalized anxiety disorder Benign essential hypertension ([facility]) Essential hypertension, benign Class 2 severe obesity due to excess calories with serious comorbidity and body mass index (BMI) of 35.0 to 35.9 in adult [place] [place] Primary Type 2 diabetes mellitus with diabetic polyneuropathy, with long-term current use of insulin ([facility]) Long-term insulin use ([facility]) Benign essential hypertension ([facility])- Primary Essential hypertension, benign JARAD (generalized anxiety disorder) ([facility]) Generalized anxiety disorder Bilateral leg edema Edema Lumbar spondylosis Lumbosacral spondylosis without myelopathy Benign essential hypertension ([facility])- Primary Essential hypertension, benign JARAD (generalized anxiety disorder) ([facility]) Generalized anxiety disorder Lumbar spondylosis Lumbosacral spondylosis without myelopathy Bilateral leg edema Edema Prostate cancer ([facility]) Malignant neoplasm of prostate Type 2 diabetes mellitus with hyperglycemia, with long-term current use of insulin ([facility]) Class 2 severe obesity due to excess calories with serious comorbidity and body mass index (BMI) of 35.0 to 35.9 in adult [place] [place] Primary Type 2 diabetes mellitus with hyperglycemia, with long-term current use of insulin ([facility]) Type 2 diabetes mellitus with diabetic polyneuropathy, with long-term current use of insulin ([facility]) Long-term insulin use ([facility]) Type 2 diabetes mellitus with stage 3a chronic kidney disease, with long-term current use of insulin ([facility]) [place] Class 2 severe obesity due to excess calories with serious comorbidity and body mass index (BMI) of 35.0 to 35.9 in adult ([facility] [place] Primary Type 2 diabetes mellitus with diabetic polyneuropathy, with long-term current use of insulin (CMS/HCC) Type 2 diabetes mellitus with stage 3a chronic kidney disease, with long-term current use of insulin (HCC) (CMS/HCC) Long-term insulin use (CMS/HCC) Benign essential hypertension (CMS/HCC)- Primary Essential hypertension, benign JARAD (generalized anxiety disorder) ([facility]/HCC) Generalized anxiety disorder Lumbar spondylosis Lumbosacral spondylosis without myelopathy Type 2 diabetes mellitus with diabetic polyneuropathy, with long-term current use of insulin (CMS/HCC) Type 2 diabetes mellitus with stage 3b chronic kidney disease, with long-term current use of insulin (HCC) ([facility]) documented in this encounter [facility] HealthcareEvaluation note* Diagnosis Type 2 diabetes mellitus with diabetic polyneuropathy, with long-term current use of insulin (CMS/HCC)- Primary Class 2 severe obesity due to excess calories with serious comorbidity and body mass index (BMI) of 35.0 to 35.9 in adult ([facility])- Primary Type 2 diabetes mellitus with diabetic polyneuropathy, with long-term current use of insulin (CMS/HCC) Long-term insulin use ([facility]) Lumbar spondylosis- Primary Lumbosacral spondylosis without myelopathy Benign essential hypertension ([facility]) Essential hypertension, benign Bilateral leg edema Edema Class 2 severe obesity due to excess calories with serious comorbidity and body mass index (BMI) of 36.0 to 36.9 in adult ([facility])- Primary Type 2 diabetes mellitus with diabetic polyneuropathy, with long-term current use of insulin ([facility]/HCC) Benign essential hypertension ([facility]/HCC)- Primary Essential hypertension, benign Lumbar spondylosis Lumbosacral spondylosis without myelopathy Bilateral leg edema Edema Type 2 diabetes mellitus with diabetic polyneuropathy, with long-term current use of insulin ([facility]) Hypercholesteremia ([facility]) Pure hypercholesterolemia Encounter for long-term (current) use of medications Encounter for long-term (current) use of other medications Obesity (BMI 30-39.9) Body mass index [BMI] 36.0-36.9, adult (Z68.36) JARAD (generalized anxiety disorder) ([facility])- Primary Generalized anxiety disorder Benign essential hypertension ([facility]/HCC) Essential hypertension, benign Class 2 severe obesity due to excess calories with serious comorbidity and body mass index (BMI) of 35.0 to 35.9 in adult ([facility])- Primary Type 2 diabetes mellitus with [...] myelopathy Bilateral leg edema Edema Prostate cancer ([facility]) Malignant neoplasm of prostate Type 2 diabetes mellitus with hyperglycemia, with long-term current use of insulin ([facility]) Class 2 severe obesity due to excess calories with serious comorbidity and body mass index (BMI) of 35.0 to 35.9 in adult ([facility])- Primary Type 2 diabetes mellitus with hyperglycemia, with long-term current use of insulin ([facility]) Type 2 diabetes mellitus with diabetic polyneuropathy, with long-term current use of insulin ([facility]) Long-term insulin use ([facility]) Type 2 diabetes mellitus with stage 3a chronic kidney disease, with long-term current use of insulin (HCC) ([facility]) Class 2 severe obesity due to excess calories with serious comorbidity and body mass index (BMI) of 35.0 to 35.9 in adult ([facility])- Primary Type 2 diabetes mellitus with diabetic polyneuropathy, with long-term current use of insulin ([facility]/HCC) Type 2 diabetes mellitus with stage 3a chronic kidney disease, with long-term current use of insulin (HCC) ([facility]/HCC) Long-term insulin use ([facility]) Benign essential hypertension ([facility]/HCC)- Primary Essential hypertension, benign JARAD (generalized anxiety disorder) ([facility]) Generalized anxiety disorder Lumbar spondylosis Lumbosacral spondylosis without myelopathy Type 2 diabetes mellitus with diabetic polyneuropathy, with long-term current use of insulin ([facility]/HCC) Type 2 diabetes mellitus with stage 3b chronic kidney disease, with long-term current use of insulin (HCC) ([facility]) Left shoulder pain, unspecified chronicity- Primary S/P arthroscopy of left shoulder documented in this encounter [facility] HealthcareEvaluation note* Diagnosis Type 2 diabetes mellitus with diabetic polyneuropathy, with long-term current use of insulin ([facility])- Primary Class 2 severe obesity due to excess calories with serious comorbidity and body mass index (BMI) of 35.0 to 35.9 in adult ([facility])- Primary Type 2 diabetes mellitus with diabetic polyneuropathy, with long-term current use of insulin ([facility]) Long-term insulin use ([facility]) Lumbar spondylosis- Primary Lumbosacral spondylosis without myelopathy Benign essential hypertension ([facility]) Essential hypertension, benign Bilateral leg edema Edema Class 2 severe obesity due to excess calories with serious comorbidity and body mass index (BMI) of 36.0 to 36.9 in adult ([facility])- Primary Type 2 diabetes mellitus with diabetic polyneuropathy, with long-term current use of insulin ([facility]) Benign essential hypertension ([facility])- Primary Essential hypertension, benign Lumbar spondylosis Lumbosacral spondylosis without myelopathy Bilateral leg edema Edema Type 2 diabetes mellitus with diabetic polyneuropathy, with long-term current use of insulin ([facility]) Hypercholesteremia ([facility]) Pure hypercholesterolemia Encounter for long-term (current) use of medications Encounter for long-term (current) use of other medications Obesity (BMI 30-39.9) Body mass index [BMI] 36.0-36.9, adult (Z68.36) JARAD (generalized anxiety disorder) ([facility])- Primary Generalized anxiety disorder Benign essential hypertension ([facility]) Essential hypertension, benign Class 2 severe obesity due to excess calories with serious comorbidity and body mass index (BMI) of 35.0 to 35.9 in adult ([facility])- Primary Type 2 diabetes mellitus with diabetic polyneuropathy, with long-term current use of insulin ([facility]) Long-term insulin use ([facility]) Benign essential hypertension ([facility])- Primary Essential hypertension, benign JARAD (generalized anxiety disorder) ([facility]) Generalized anxiety disorder Bilateral leg edema Edema Lumbar spondylosis Lumbosacral spondylosis without myelopathy Benign essential hypertension ([facility]/HCC)- Primary Essential hypertension, benign JARAD (generalized anxiety disorder) ([facility]) Generalized anxiety disorder Lumbar spondylosis Lumbosacral spondylosis without myelopathy Bilateral leg edema Edema Prostate cancer ([facility]) Malignant neoplasm of prostate Type 2 diabetes mellitus with hyperglycemia, with long-term current use of insulin ([facility]) Class 2 severe obesity due to excess calories with serious comorbidity and body mass index (BMI) of 35.0 to 35.9 in adult ([facility])- Primary Type 2 diabetes mellitus with hyperglycemia, with long-term current use of insulin ([facility]) Type 2 diabetes mellitus with diabetic polyneuropathy, with long-term current use of insulin ([facility]) Long-term insulin use ([facility]) Type 2 diabetes mellitus with stage 3a chronic kidney disease, with long-term current use of insulin ([facility]) ([facility]) Class 2 severe obesity due to excess calories with serious comorbidity and body mass index (BMI) of 35.0 to 35.9 in adult ([facility])- Primary Type 2 diabetes mellitus with diabetic polyneuropathy, with long-term current use of insulin ([facility]) Type 2 diabetes mellitus with stage 3a chronic kidney disease, with long-term current use of insulin ([facility]) [place] Long-term insulin use ([facility]) Benign essential hypertension ([facility])- Primary Essential hypertension, benign JARAD (generalized anxiety disorder) ([facility]) Generalized anxiety disorder Lumbar spondylosis Lumbosacral spondylosis without myelopathy Type 2 diabetes mellitus with diabetic polyneuropathy, with long-term current use of insulin ([facility]) Type 2 diabetes mellitus with stage 3b chronic kidney disease, with long-term current use of insulin ([facility]) ([facility]) Contusion of left foot, initial encounter- Primary Pain in left foot Pain in soft tissues of limb Diabetic polyneuropathy associated with type 2 diabetes mellitus ([facility]) Encounter for long-term (current) use of insulin ([facility]) Encounter for long-term (current) use of insulin documented in this encounter [facility] HealthcareEvaluation note* Diagnosis Type 2 diabetes mellitus with diabetic polyneuropathy, with long-term current use of insulin ([facility])- Primary Class 2 severe obesity due to excess calories with serious comorbidity and body mass index (BMI) of 35.0 to 35.9 in adult ([facility])- Primary Type 2 diabetes mellitus with diabetic polyneuropathy, with long-term current use of insulin ([facility]) Long-term insulin use ([facility]) Lumbar spondylosis- Primary Lumbosacral spondylosis without myelopathy Benign essential hypertension ([facility]/HCC) Essential hypertension, benign Bilateral leg edema Edema Class 2 severe obesity due to excess calories with serious comorbidity and body mass index (BMI) of 36.0 to 36.9 in adult ([facility])- Primary Type 2 diabetes mellitus with diabetic polyneuropathy, with long-term current use of insulin ([facility]) Benign essential hypertension ([facility])- Primary Essential hypertension, benign Lumbar spondylosis Lumbosacral spondylosis without myelopathy Bilateral leg edema Edema Type 2 diabetes mellitus with diabetic polyneuropathy, with long-term current use of insulin ([facility]) Hypercholesteremia ([facility]) Pure hypercholesterolemia Encounter for long-term (current) use of medications Encounter for long-term (current) use of other medications Obesity (BMI 30-39.9) Body mass index [BMI] 36.0-36.9, adult (Z68.36) JARAD (generalized anxiety disorder) ([facility])- Primary Generalized anxiety disorder Benign essential hypertension ([facility]) Essential hypertension, benign Class 2 severe obesity due to excess calories with serious comorbidity and body mass index (BMI) of 35.0 to 35.9 in adult [place] Primary Type 2 diabetes mellitus with diabetic polyneuropathy, with long-term current use of insulin ([facility]) Long-term insulin use ([facility]) Benign essential hypertension ([facility])- Primary Essential hypertension, benign JARAD (generalized anxiety disorder) ([facility]) Generalized anxiety disorder Bilateral leg edema Edema Lumbar spondylosis Lumbosacral spondylosis without myelopathy Benign essential hypertension ([facility])- Primary Essential hypertension, benign JARAD (generalized anxiety disorder) ([facility]) Generalized anxiety disorder Lumbar spondylosis Lumbosacral spondylosis without myelopathy Bilateral leg edema Edema Prostate cancer ([facility]) Malignant neoplasm of prostate Type 2 diabetes mellitus with hyperglycemia, with long-term current use of insulin ([facility]) Class 2 severe obesity due to excess calories with serious comorbidity and body mass index (BMI) of 35.0 to 35.9 in adult ([facility] Primary Type 2 diabetes mellitus with hyperglycemia, with long-term current use of insulin ([facility]) Type 2 diabetes mellitus with diabetic polyneuropathy, with long-term current use of insulin ([facility]) Long-term insulin use ([facility]) Type 2 diabetes mellitus with stage 3a chronic kidney disease, with long-term current use of insulin (HCC) ([facility]) Class 2 severe obesity due to excess calories with serious comorbidity and body mass index (BMI) of 35.0 to 35.9 in adult ([facility])- Primary Type 2 diabetes mellitus with diabetic polyneuropathy, with long-term current use of insulin ([facility]) Type 2 diabetes mellitus with stage 3a chronic kidney disease, with long-term current use of insulin (HCC) ([facility]) Long-term insulin use ([facility]) Benign essential hypertension ([facility])- Primary Essential hypertension, benign JARAD (generalized anxiety disorder) ([facility]) Generalized anxiety disorder Lumbar spondylosis Lumbosacral spondylosis without myelopathy Type 2 diabetes mellitus with diabetic polyneuropathy, with long-term current use of insulin ([facility]) Type 2 diabetes mellitus with stage 3b chronic kidney disease, with long-term current use of insulin ([facility]) ([facility]) Left shoulder pain, unspecified chronicity- Primary S/P arthroscopy of left shoulder documented in this encounter [facility] HealthcareEvaluation note* Diagnosis Type 2 diabetes mellitus with diabetic polyneuropathy, with long-term current use of insulin ([facility]) Preop examination Unspecified pre-operative examination documented in this encounter [facility] HealthcareEvaluation note* Diagnosis Type 2 diabetes mellitus with diabetic polyneuropathy, with long-term current use of insulin ([facility])- Primary Class 2 severe obesity due to excess calories with serious comorbidity and body mass index (BMI) of 35.0 to 35.9 in adult ([facility])- Primary Type 2 diabetes mellitus with diabetic polyneuropathy, with long-term current use of insulin ([facility]) Long-term insulin use ([facility]) Lumbar spondylosis- Primary Lumbosacral spondylosis without myelopathy Benign essential hypertension ([facility]) Essential hypertension, benign Bilateral leg edema Edema Class 2 severe obesity due to excess calories with serious comorbidity and body mass index (BMI) of 36.0 to 36.9 in adult ([facility])- Primary Type 2 diabetes mellitus with diabetic polyneuropathy, with long-term current use of insulin ([facility]) Benign essential hypertension ([facility])- Primary Essential hypertension, benign Lumbar spondylosis Lumbosacral spondylosis without myelopathy Bilateral leg edema Edema Type 2 diabetes mellitus with diabetic polyneuropathy, with long-term current use of insulin (CMS/HCC) Hypercholesteremia ([facility]) Pure hypercholesterolemia Encounter for long-term (current) use of medications Encounter for long-term (current) use of other medications Obesity (BMI 30-39.9) Body mass index [BMI] 36.0-36.9, adult (Z68.36) JARAD (generalized anxiety disorder) (CMS/HCC)- Primary Generalized anxiety disorder Benign essential hypertension ([facility]) Essential hypertension, benign Class 2 severe obesity due to excess calories with serious comorbidity and body mass index (BMI) of 35.0 to 35.9 in adult ([facility])- Primary Type 2 diabetes mellitus with diabetic polyneuropathy, with long-term current use of insulin ([facility]) Long-term insulin use ([facility]) Benign essential hypertension (CMS/HCC)- Primary Essential hypertension, benign JARAD (generalized anxiety disorder) (CMS/HCC) Generalized anxiety disorder Bilateral leg edema Edema Lumbar spondylosis Lumbosacral spondylosis without myelopathy Benign essential hypertension (CMS/HCC)- Primary Essential hypertension, benign JARAD (generalized anxiety disorder) (CMS/HCC) Generalized anxiety disorder Lumbar spondylosis Lumbosacral spondylosis without myelopathy Bilateral leg edema Edema Prostate cancer ([facility]) Malignant neoplasm of prostate Type 2 diabetes mellitus with hyperglycemia, with long-term current use of insulin ([facility]) Class 2 severe obesity due to excess calories with serious comorbidity and body mass index (BMI) of 35.0 to 35.9 in adult ([facility])- Primary Type 2 diabetes mellitus with hyperglycemia, with long-term current use of insulin ([facility]) Type 2 diabetes mellitus with diabetic polyneuropathy, with long-term current use of insulin ([facility]/HCC) Long-term insulin use ([facility]) Type 2 diabetes mellitus with stage 3a chronic kidney disease, with long-term current use of insulin (HCC) ([facility]) Class 2 severe obesity due to excess calories with serious comorbidity and body mass index (BMI) of 35.0 to 35.9 in adult ([facility])- Primary Type 2 diabetes mellitus with diabetic polyneuropathy, with long-term current use of insulin ([facility]) Type 2 diabetes mellitus with stage 3a chronic kidney disease, with long-term current use of insulin (HCC) ([facility]) Long-term insulin use ([facility]) Benign essential hypertension ([facility])- Primary Essential hypertension, benign JARAD (generalized anxiety disorder) ([facility]) Generalized anxiety disorder Lumbar spondylosis Lumbosacral spondylosis without myelopathy Type 2 diabetes mellitus with diabetic polyneuropathy, with long-term current use of insulin ([facility]) Type 2 diabetes mellitus with stage 3b chronic kidney disease, with long-term current use of insulin ([facility]) ([facility]) Left shoulder pain, unspecified chronicity- Primary S/P arthroscopy of left shoulder S/P arthroscopy of left shoulder- Primary documented in this encounter [facility] HealthcareEvaluation note* Diagnosis Type 2 diabetes mellitus with diabetic polyneuropathy, with long-term current use of insulin ([facility])- Primary Class 2 severe obesity due to excess calories with serious comorbidity and body mass index (BMI) of 35.0 to 35.9 in adult ([facility])- Primary Type 2 diabetes mellitus with diabetic polyneuropathy, with long-term current use of insulin ([facility]) Long-term insulin use ([facility]) Lumbar spondylosis- Primary Lumbosacral spondylosis without myelopathy Benign essential hypertension ([facility]) Essential hypertension, benign Bilateral leg edema Edema Class 2 severe obesity due to excess calories with serious comorbidity and body mass index (BMI) of 36.0 to 36.9 in adult [place] [place] Primary Type 2 diabetes mellitus with diabetic polyneuropathy, with long-term current use of insulin ([facility]) Benign essential hypertension ([facility])- Primary Essential hypertension, benign Lumbar spondylosis Lumbosacral spondylosis without myelopathy Bilateral leg edema Edema Type 2 diabetes mellitus with diabetic polyneuropathy, with long-term current use of insulin ([facility]) Hypercholesteremia ([facility]) Pure hypercholesterolemia Encounter for long-term (current) use of medications Encounter for long-term (current) use of other medications Obesity (BMI 30-39.9) Body mass index [BMI] 36.0-36.9, adult (Z68.36) JARAD (generalized anxiety disorder) ([facility])- Primary Generalized anxiety disorder Benign essential hypertension ([facility]) Essential hypertension, benign Class 2 severe obesity due to excess calories with serious comorbidity and body mass index (BMI) of 35.0 to 35.9 in adult [place] [place] Primary Type 2 diabetes mellitus with diabetic polyneuropathy, with long-term current use of insulin (CMS/HCC) Long-term insulin use ([facility]/HCC) Benign essential hypertension (CMS/HCC)- Primary Essential hypertension, benign JARAD (generalized anxiety disorder) (CMS/HCC) Generalized anxiety disorder Bilateral leg edema Edema Lumbar spondylosis Lumbosacral spondylosis without myelopathy Benign essential hypertension (CMS/HCC)- Primary Essential hypertension, benign JARAD (generalized anxiety disorder) (CMS/HCC) Generalized anxiety disorder Lumbar spondylosis Lumbosacral spondylosis without myelopathy Bilateral leg edema Edema Prostate cancer ([facility]) Malignant neoplasm of prostate Type 2 diabetes mellitus with hyperglycemia, with long-term current use of insulin ([facility]) Class 2 severe obesity due to excess calories with serious comorbidity and body mass index (BMI) of 35.0 to 35.9 in adult ([facility])- Primary Type 2 diabetes mellitus with hyperglycemia, with long-term current use of insulin ([facility]) Type 2 diabetes mellitus with diabetic polyneuropathy, with long-term current use of insulin ([facility]/HCC) Long-term insulin use ([facility]) Type 2 diabetes mellitus with stage 3a chronic kidney disease, with long-term current use of insulin (HCC) ([facility]) Class 2 severe obesity due to excess calories with serious comorbidity and body mass index (BMI) of 35.0 to 35.9 in adult ([facility])- Primary Type 2 diabetes mellitus with diabetic polyneuropathy, with long-term current use of insulin ([facility]/HCC) Type 2 diabetes mellitus with stage 3a chronic kidney disease, with long-term current use of insulin (HCC) ([facility]/HCC) Long-term insulin use ([facility]/HCC) Benign essential hypertension (CMS/HCC)- Primary Essential hypertension, benign JARAD (generalized anxiety disorder) ([facility]) Generalized anxiety disorder Lumbar spondylosis Lumbosacral spondylosis without myelopathy Type 2 diabetes mellitus with diabetic polyneuropathy, with long-term current use of insulin ([facility]/HCC) Type 2 diabetes mellitus with stage 3b chronic kidney disease, with long-term current use of insulin (HCC) ([facility]/HCC) S/P arthroscopy of left shoulder- Primary documented in this encounter [facility] HealthcareEvaluation note* Diagnosis Type 2 diabetes mellitus with diabetic polyneuropathy, with long-term current use of insulin ([facility])- Primary Class 2 severe obesity due to excess calories with serious comorbidity and body mass index (BMI) of 35.0 to 35.9 in adult [facility] Primary Type 2 diabetes mellitus with diabetic polyneuropathy, with long-term current use of insulin ([facility]) [facility] use [facility] Lumbar spondylosis- Primary Lumbosacral spondylosis without myelopathy Benign essential hypertension ([facility]) Essential hypertension, benign Bilateral leg edema Edema Class 2 severe obesity due to excess calories with serious comorbidity and body mass index (BMI) of 36.0 to 36.9 in adult [place] [place] Primary Type 2 diabetes mellitus with diabetic polyneuropathy, with long-term current use of insulin [facility] Benign essential hypertension [facility] Primary Essential hypertension, benign Lumbar spondylosis Lumbosacral spondylosis without myelopathy Bilateral leg edema Edema Type 2 diabetes mellitus with diabetic polyneuropathy, with long-term current use of insulin [facility] [place] [place] Pure hypercholesterolemia Encounter for long-term (current) use of medications Encounter for long-term (current) use of other medications Obesity (BMI 30-39.9) Body mass index [BMI] 36.0-36.9, adult (Z68.36) JARAD (generalized anxiety disorder) ([facility])- Primary Generalized anxiety disorder Benign essential hypertension [facility] Essential hypertension, benign Class 2 severe obesity due to excess calories with serious comorbidity and body mass index (BMI) of 35.0 to 35.9 in adult [place] [place] Primary Type 2 diabetes mellitus with diabetic polyneuropathy, with long-term current use of insulin [facility] use [facility] Benign essential hypertension ([facility])- Primary Essential hypertension, benign JARAD (generalized anxiety disorder) ([facility]) Generalized anxiety disorder Bilateral leg edema Edema Lumbar spondylosis Lumbosacral spondylosis without myelopathy Benign essential hypertension ([facility])- Primary Essential hypertension, benign JARAD (generalized anxiety disorder) ([facility]) Generalized anxiety disorder Lumbar spondylosis Lumbosacral spondylosis without myelopathy Bilateral leg edema Edema Prostate cancer ([facility]) Malignant neoplasm of prostate Type 2 diabetes mellitus with hyperglycemia, with long-term current use of insulin [facility] Class 2 severe obesity due to excess calories with serious comorbidity and body mass index (BMI) of 35.0 to 35.9 in adult ([facility])- Primary Type 2 diabetes mellitus with hyperglycemia, with long-term current use of insulin ([facility]) Type 2 diabetes mellitus with diabetic polyneuropathy, with long-term current use of insulin ([facility]) Long-term insulin use ([facility]) Type 2 diabetes mellitus with stage 3a chronic kidney disease, with long-term current use of insulin ([facility]) ([facility]) Class 2 severe obesity due to excess calories with serious comorbidity and body mass index (BMI) of 35.0 to 35.9 in adult ([facility])- Primary Type 2 diabetes mellitus with diabetic polyneuropathy, with long-term current use of insulin ([facility]) Type 2 diabetes mellitus with stage 3a chronic kidney disease, with long-term current use of insulin ([facility]) [place] [place] Long-term insulin use ([facility]) Benign essential hypertension ([facility])- Primary Essential hypertension, benign JARAD (generalized anxiety disorder) ([facility]) Generalized anxiety disorder Lumbar spondylosis Lumbosacral spondylosis without myelopathy Type 2 diabetes mellitus with diabetic polyneuropathy, with long-term current use of insulin ([facility]) Type 2 diabetes mellitus with stage 3b chronic kidney disease, with long-term current use of insulin ([facility]) ([facility]) Left shoulder pain, unspecified chronicity- Primary S/P arthroscopy of left shoulder documented in this encounter [facility] HealthcareEvaluation note* Diagnosis Type 2 diabetes mellitus with diabetic polyneuropathy, with long-term current use of insulin ([facility])- Primary Class 2 severe obesity due to excess calories with serious comorbidity and body mass index (BMI) of 35.0 to 35.9 in adult ([facility])- Primary Type 2 diabetes mellitus with diabetic polyneuropathy, with long-term current use of insulin ([facility]) Long-term insulin use ([facility]) Lumbar spondylosis- Primary Lumbosacral spondylosis without myelopathy Benign essential hypertension ([facility]) Essential hypertension, benign Bilateral leg edema Edema Class 2 severe obesity due to excess calories with serious comorbidity and body mass index (BMI) of 36.0 to 36.9 in adult [place] [place] Primary Type 2 diabetes mellitus with diabetic polyneuropathy, with long-term current use of insulin ([facility]) Benign essential hypertension ([facility])- Primary Essential hypertension, benign Lumbar spondylosis Lumbosacral spondylosis without myelopathy Bilateral leg edema Edema Type 2 diabetes mellitus with diabetic polyneuropathy, with long-term current use of insulin ([facility]) Hypercholesteremia ([facility]) Pure hypercholesterolemia Encounter for long-term (current) use of medications Encounter for long-term (current) use of other medications Obesity (BMI 30-39.9) Body mass index [BMI] 36.0-36.9, adult (Z68.36) JARAD (generalized anxiety disorder) ([facility])- Primary Generalized anxiety disorder Benign essential hypertension ([facility]) Essential hypertension, benign Class 2 severe obesity due to excess calories with serious comorbidity and body mass index (BMI) of 35.0 to 35.9 in adult ([facility])- Primary Type 2 diabetes mellitus with diabetic polyneuropathy, with long-term current use of insulin ([facility]) Long-term insulin use ([facility]) Benign essential hypertension ([facility])- Primary Essential hypertension, benign JARAD (generalized anxiety disorder) ([facility]) Generalized anxiety disorder Bilateral leg edema Edema Lumbar spondylosis Lumbosacral spondylosis without myelopathy Benign essential hypertension ([facility])- Primary Essential hypertension, benign JARAD (generalized anxiety disorder) ([facility]) Generalized anxiety disorder Lumbar spondylosis Lumbosacral spondylosis without myelopathy Bilateral leg edema Edema Prostate cancer ([facility]) Malignant neoplasm of prostate Type 2 diabetes mellitus with hyperglycemia, with long-term current use of insulin ([facility]) Class 2 severe obesity due to excess calories with serious comorbidity and body mass index (BMI) of 35.0 to 35.9 in adult [place] [place] Primary Type 2 diabetes mellitus with hyperglycemia, with long-term current use of insulin ([facility]) Type 2 diabetes mellitus with diabetic polyneuropathy, with long-term current use of insulin ([facility]) Long-term insulin use ([facility]) Type 2 diabetes mellitus with stage 3a chronic kidney disease, with long-term current use of insulin ([facility]) ([facility]) Class 2 severe obesity due to excess calories with serious comorbidity and body mass index (BMI) of 35.0 to 35.9 in adult [place] [place] Primary Type 2 diabetes mellitus with diabetic polyneuropathy, with long-term current use of insulin ([facility]) Type 2 diabetes mellitus with stage 3a chronic kidney disease, with long-term current use of insulin (HCC) ([facility]) Long-term insulin use ([facility]) Benign essential hypertension ([facility])- Primary Essential hypertension, benign JARAD (generalized anxiety disorder) ([facility]) Generalized anxiety disorder Lumbar spondylosis Lumbosacral spondylosis without myelopathy Type 2 diabetes mellitus with diabetic polyneuropathy, with long-term current use of insulin ([facility]) Type 2 diabetes mellitus with stage 3b chronic kidney disease, with long-term current use of insulin ([facility]) ([facility]) Left shoulder pain, unspecified chronicity- Primary S/P arthroscopy of left shoulder documented in this encounter [facility] HealthcareEvaluation [facility]* Diagnosis Type 2 diabetes mellitus with diabetic polyneuropathy, with long-term current use of insulin ([facility])- Primary Class 2 severe obesity due to excess calories with serious comorbidity and body mass index (BMI) of 35.0 to 35.9 in adult ([facility])- Primary Type 2 diabetes mellitus with diabetic polyneuropathy, with long-term current use of insulin ([facility]) Long-term insulin use ([facility]) Lumbar spondylosis- Primary Lumbosacral spondylosis without myelopathy Benign essential hypertension ([facility]) Essential hypertension, benign Bilateral leg edema Edema Class 2 severe obesity due to excess calories with serious comorbidity and body mass index (BMI) of 36.0 to 36.9 in adult ([facility])- Primary Type 2 diabetes mellitus with diabetic polyneuropathy, with long-term current use of insulin ([facility]) Benign essential hypertension ([facility])- Primary Essential hypertension, benign Lumbar spondylosis Lumbosacral spondylosis without myelopathy Bilateral leg edema Edema Type 2 diabetes mellitus with diabetic polyneuropathy, with long-term current use of insulin ([facility]) Hypercholesteremia ([facility]) Pure hypercholesterolemia Encounter for long-term (current) use of medications Encounter for long-term (current) use of other medications Obesity (BMI 30-39.9) Body mass index [BMI] 36.0-36.9, adult (Z68.36) JARAD (generalized anxiety disorder) ([facility])- Primary Generalized anxiety disorder Benign essential hypertension ([facility]) Essential hypertension, benign Class 2 severe obesity due to excess calories with serious comorbidity and body mass index (BMI) of 35.0 to 35.9 in adult ([facility])- Primary Type 2 diabetes mellitus with diabetic polyneuropathy, with long-term current use of insulin ([facility] [facility]) Long-term insulin use ([facility]/HCC) Benign essential hypertension (CMS/HCC)- Primary Essential hypertension, benign JARAD (generalized anxiety disorder) ([facility]/HCC) Generalized anxiety disorder Bilateral leg edema Edema Lumbar spondylosis Lumbosacral spondylosis without myelopathy Benign essential hypertension (CMS/HCC)- Primary Essential hypertension, benign JARAD (generalized anxiety disorder) ([facility]/HCC) Generalized anxiety disorder Lumbar spondylosis Lumbosacral spondylosis without myelopathy Bilateral leg edema Edema Prostate cancer ([facility]) Malignant neoplasm of prostate Type 2 diabetes mellitus with hyperglycemia, with long-term current use of insulin ([facility]) Class 2 severe obesity due to excess calories with serious comorbidity and body mass index (BMI) of 35.0 to 35.9 in adult ([facility])- Primary Type 2 diabetes mellitus with hyperglycemia, with long-term current use of insulin ([facility]) Type 2 diabetes mellitus with diabetic polyneuropathy, with long-term current use of insulin ([facility]) Long-term insulin use ([facility]) Type 2 diabetes mellitus with stage 3a chronic kidney disease, with long-term current use of insulin (HCC) ([facility]) Class 2 severe obesity due to excess calories with serious comorbidity and body mass index (BMI) of 35.0 to 35.9 in adult ([facility])- Primary Type 2 diabetes mellitus with diabetic polyneuropathy, with long-term current use of insulin ([facility]) Type 2 diabetes mellitus with stage 3a chronic kidney disease, with long-term current use of insulin (HCC) ([facility]/HCC) Long-term insulin use ([facility]) Benign essential hypertension ([facility]/HCC)- Primary Essential hypertension, benign JARAD (generalized anxiety disorder) ([facility]) Generalized anxiety disorder Lumbar spondylosis Lumbosacral spondylosis without myelopathy Type 2 diabetes mellitus with diabetic polyneuropathy, with long-term current use of insulin ([facility]) Type 2 diabetes mellitus with stage 3b chronic kidney disease, with long-term current use of insulin (HCC) ([facility]) Left shoulder pain, unspecified chronicity- Primary S/P arthroscopy of left shoulder documented in this encounter [facility] HealthcareEvaluation note* Diagnosis Type 2 diabetes mellitus with diabetic polyneuropathy, with long-term current use of insulin ([facility])- Primary Class 2 severe obesity due to excess calories with serious comorbidity and body mass index (BMI) of 35.0 to 35.9 in adult ([facility])- Primary Type 2 diabetes mellitus with diabetic polyneuropathy, with long-term current use of insulin ([facility]) Long-term insulin use ([facility]) Lumbar spondylosis- Primary Lumbosacral spondylosis without myelopathy Benign essential hypertension ([facility]) Essential hypertension, benign Bilateral leg edema Edema Class 2 severe obesity due to excess calories with serious comorbidity and body mass index (BMI) of 36.0 to 36.9 in adult ([facility])- Primary Type 2 diabetes mellitus with diabetic polyneuropathy, with long-term current use of insulin ([facility]) Benign essential hypertension ([facility])- Primary Essential hypertension, benign Lumbar spondylosis Lumbosacral spondylosis without myelopathy Bilateral leg edema Edema Type 2 diabetes mellitus with diabetic polyneuropathy, with long-term current use of insulin ([facility]) Hypercholesteremia ([facility]) Pure hypercholesterolemia Encounter for long-term (current) use of medications Encounter for long-term (current) use of other medications Obesity (BMI 30-39.9) Body mass index [BMI] 36.0-36.9, adult (Z68.36) JARAD (generalized anxiety disorder) ([facility])- Primary Generalized anxiety disorder Benign essential hypertension ([facility]) Essential hypertension, benign Class 2 severe obesity due to excess calories with serious comorbidity and body mass index (BMI) of 35.0 to 35.9 in adult ([facility])- Primary Type 2 diabetes mellitus with diabetic polyneuropathy, with long-term current use of insulin ([facility]) Long-term insulin use ([facility]) Benign essential hypertension ([facility])- Primary Essential hypertension, benign JARAD (generalized anxiety disorder) ([facility]) Generalized anxiety disorder Bilateral leg edema Edema Lumbar spondylosis Lumbosacral spondylosis without myelopathy Benign essential hypertension ([facility])- Primary Essential hypertension, benign JARAD (generalized anxiety disorder) ([facility]) Generalized anxiety disorder Lumbar spondylosis Lumbosacral spondylosis without myelopathy Bilateral leg edema Edema Prostate cancer ([facility]) Malignant neoplasm of prostate Type 2 diabetes mellitus with hyperglycemia, with long-term current use of insulin ([facility]) Class 2 severe obesity due to excess calories with serious comorbidity and body mass index (BMI) of 35.0 to 35.9 in adult ([facility])- Primary Type 2 diabetes mellitus with hyperglycemia, with long-term current use of insulin ([facility]) Type 2 diabetes mellitus with diabetic polyneuropathy, with long-term current use of insulin ([facility]) Long-term insulin use ([facility]) Type 2 diabetes mellitus with stage 3a chronic kidney disease, with long-term current use of insulin ([facility]) ([facility]) Class 2 severe obesity due to excess calories with serious comorbidity and body mass index (BMI) of 35.0 to 35.9 in adult ([facility])- Primary Type 2 diabetes mellitus with diabetic polyneuropathy, with long-term current use of insulin ([facility]) Type 2 diabetes mellitus with stage 3a chronic kidney disease, with long-term current use of insulin ([facility]) ([facility]) Long-term insulin use ([facility]) Benign essential hypertension ([facility])- Primary Essential hypertension, benign JARAD (generalized anxiety disorder) ([facility]) Generalized anxiety disorder Lumbar spondylosis Lumbosacral spondylosis without myelopathy Type 2 diabetes mellitus with diabetic polyneuropathy, with long-term current use of insulin ([facility]) Type 2 diabetes mellitus with stage 3b chronic kidney disease, with long-term current use of insulin ([facility]) ([facility]) S/P arthroscopy of left shoulder- Primary documented in this encounter [facility] HealthcareEvaluation note* Diagnosis Type 2 diabetes mellitus with diabetic polyneuropathy, with long-term current use of insulin ([facility])- Primary Class 2 severe obesity due to excess calories with serious comorbidity and body mass index (BMI) of 35.0 to 35.9 in adult ([facility])- Primary Type 2 diabetes mellitus with diabetic polyneuropathy, with long-term current use of insulin ([facility]) Long-term insulin use ([facility]) Lumbar spondylosis- Primary Lumbosacral spondylosis without myelopathy Benign essential hypertension ([facility]) Essential hypertension, benign Bilateral leg edema Edema Class 2 severe obesity due to excess calories with serious comorbidity and body mass index (BMI) of 36.0 to 36.9 in adult ([facility])- Primary Type 2 diabetes mellitus with diabetic polyneuropathy, with long-term current use of insulin ([facility]) Benign essential hypertension ([facility])- Primary Essential hypertension, benign Lumbar spondylosis Lumbosacral spondylosis without myelopathy Bilateral leg edema Edema Type 2 diabetes mellitus with diabetic polyneuropathy, with long-term current use of insulin ([facility]) Hypercholesteremia ([facility]) Pure hypercholesterolemia Encounter for long-term (current) use of medications Encounter for long-term (current) use of other medications Obesity (BMI 30-39.9) Body mass index [BMI] 36.0-36.9, adult (Z68.36) JARAD (generalized anxiety disorder) ([facility])- Primary Generalized anxiety disorder Benign essential hypertension ([facility]) Essential hypertension, benign Class 2 severe obesity due to excess calories with serious comorbidity and body mass index (BMI) of 35.0 to 35.9 in adult ([facility])- Primary Type 2 diabetes mellitus with diabetic polyneuropathy, with long-term current use of insulin ([facility]) Long-term insulin use ([facility]) Benign essential hypertension ([facility])- Primary Essential hypertension, benign JARAD (generalized anxiety disorder) ([facility]) Generalized anxiety disorder Bilateral leg edema Edema Lumbar spondylosis Lumbosacral spondylosis without myelopathy Benign essential hypertension ([facility]/HCC)- Primary Essential hypertension, benign JARAD (generalized anxiety disorder) ([facility]) Generalized anxiety disorder Lumbar spondylosis Lumbosacral spondylosis without myelopathy Bilateral leg edema Edema Prostate cancer ([facility]) Malignant neoplasm of prostate Type 2 diabetes mellitus with hyperglycemia, with long-term current use of insulin ([facility]) Class 2 severe obesity due to excess calories with serious comorbidity and body mass index (BMI) of 35.0 to 35.9 in adult ([facility])- Primary Type 2 diabetes mellitus with hyperglycemia, with long-term current use of insulin ([facility]) Type 2 diabetes mellitus with diabetic polyneuropathy, with long-term current use of insulin ([facility]) Long-term insulin use ([facility]) Type 2 diabetes mellitus with stage 3a chronic kidney disease, with long-term current use of insulin ([facility]) ([facility]) Class 2 severe obesity due to excess calories with serious comorbidity and body mass index (BMI) of 35.0 to 35.9 in adult ([facility])- Primary Type 2 diabetes mellitus with diabetic polyneuropathy, with long-term current use of insulin ([facility]) Type 2 diabetes mellitus with stage 3a chronic kidney disease, with long-term current use of insulin ([facility]) ([facility]) Long-term insulin use ([facility]) Benign essential hypertension ([facility])- Primary Essential hypertension, benign JARAD (generalized anxiety disorder) ([facility]) Generalized anxiety disorder Lumbar spondylosis Lumbosacral spondylosis without myelopathy Type 2 diabetes mellitus with diabetic polyneuropathy, with long-term current use of insulin ([facility]) Type 2 diabetes mellitus with stage 3b chronic kidney disease, with long-term current use of insulin ([facility]) ([facility]) Left shoulder pain, unspecified chronicity- Primary S/P arthroscopy of left shoulder documented in this encounter [facility] HealthcareEvaluation note* Diagnosis Type 2 diabetes mellitus with diabetic polyneuropathy, with long-term current use of insulin ([facility])- Primary Class 2 severe obesity due to excess calories with serious comorbidity and body mass index (BMI) of 35.0 to 35.9 in adult ([facility])- Primary Type 2 diabetes mellitus with diabetic polyneuropathy, with long-term current use of insulin ([facility]) Long-term insulin use ([facility]) Lumbar spondylosis- Primary Lumbosacral spondylosis without myelopathy Benign essential hypertension ([facility]) Essential hypertension, benign Bilateral leg edema Edema Class 2 severe obesity due to excess calories with serious comorbidity and body mass index (BMI) of 36.0 to 36.9 in adult [place] Primary Type 2 diabetes mellitus with diabetic polyneuropathy, with long-term current use of insulin ([facility]) Benign essential hypertension ([facility])- Primary Essential hypertension, benign Lumbar spondylosis Lumbosacral spondylosis without myelopathy Bilateral leg edema Edema Type 2 diabetes mellitus with diabetic polyneuropathy, with long-term current use of insulin ([facility]) [place] Pure hypercholesterolemia Encounter for long-term (current) use of medications Encounter for long-term (current) use of other medications Obesity (BMI 30-39.9) Body mass index [BMI] 36.0-36.9, adult (Z68.36) JARAD (generalized anxiety disorder) ([facility]/HCC)- Primary Generalized anxiety disorder Benign essential hypertension ([facility]/HCC) Essential hypertension, benign Class 2 severe obesity due to excess calories with serious comorbidity and body mass index (BMI) of 35.0 to 35.9 in adult ([facility])- Primary Type 2 diabetes mellitus with diabetic polyneuropathy, with long-term current use of insulin ([facility]/HCC) Long-term insulin use ([facility]) Benign essential hypertension ([facility]/HCC)- Primary Essential hypertension, benign JARAD (generalized anxiety disorder) ([facility]/HCC) Generalized anxiety disorder Bilateral leg edema Edema Lumbar spondylosis Lumbosacral spondylosis without myelopathy Benign essential hypertension (CMS/HCC)- Primary Essential hypertension, benign JARAD (generalized anxiety disorder) ([facility]/HCC) Generalized anxiety disorder Lumbar spondylosis Lumbosacral spondylosis without myelopathy Bilateral leg edema Edema Prostate cancer ([facility]) Malignant neoplasm of prostate Type 2 diabetes mellitus with hyperglycemia, with long-term current use of insulin ([facility]) Class 2 severe obesity due to excess calories with serious comorbidity and body mass index (BMI) of 35.0 to 35.9 in adult ([facility])- Primary Type 2 diabetes mellitus with hyperglycemia, with long-term current use of insulin ([facility]) Type 2 diabetes mellitus with diabetic polyneuropathy, with long-term current use of insulin ([facility]) Long-term insulin use ([facility]) Type 2 diabetes mellitus with stage 3a chronic kidney disease, with long-term current use of insulin (HCC) ([facility]) Class 2 severe obesity due to excess calories with serious comorbidity and body mass index (BMI) of 35.0 to 35.9 in adult ([facility])- Primary Type 2 diabetes mellitus with diabetic polyneuropathy, with long-term current use of insulin ([facility]) Type 2 diabetes mellitus with stage 3a chronic kidney disease, with long-term current use of insulin (HCC) ([facility]) Long-term insulin use ([facility]) Benign essential hypertension ([facility])- Primary Essential hypertension, benign JARAD (generalized anxiety disorder) ([facility]) Generalized anxiety disorder Lumbar spondylosis Lumbosacral spondylosis without myelopathy Type 2 diabetes mellitus with diabetic polyneuropathy, with long-term current use of insulin ([facility]) Type 2 diabetes mellitus with stage 3b chronic kidney disease, with long-term current use of insulin (HCC) ([facility]) Left shoulder pain, unspecified chronicity- Primary S/P arthroscopy of left shoulder documented in this encounter [facility] HealthcareEvaluation note* Diagnosis Type 2 diabetes mellitus with diabetic polyneuropathy, with long-term current use of insulin ([facility])- Primary Class 2 severe obesity due to excess calories with serious comorbidity and body mass index (BMI) of 35.0 to 35.9 in adult ([facility])- Primary Type 2 diabetes mellitus with diabetic polyneuropathy, with long-term current use of insulin ([facility]) Long-term insulin use ([facility]) Lumbar spondylosis- Primary Lumbosacral spondylosis without myelopathy Benign essential hypertension ([facility]) Essential hypertension, benign Bilateral leg edema Edema Class 2 severe obesity due to excess calories with serious comorbidity and body mass index (BMI) of 36.0 to 36.9 in adult ([facility])- Primary Type 2 diabetes mellitus with diabetic polyneuropathy, with long-term current use of insulin ([facility]) Benign essential hypertension ([facility])- Primary Essential hypertension, benign Lumbar spondylosis Lumbosacral spondylosis without myelopathy Bilateral leg edema Edema Type 2 diabetes mellitus with diabetic polyneuropathy, with long-term current use of insulin ([facility]) Hypercholesteremia ([facility]) Pure hypercholesterolemia Encounter for long-term (current) use of medications Encounter for long-term (current) use of other medications Obesity (BMI 30-39.9) Body mass index [BMI] 36.0-36.9, adult (Z68.36) JARAD (generalized anxiety disorder) ([facility])- Primary Generalized anxiety disorder Benign essential hypertension ([facility]) Essential hypertension, benign Class 2 severe obesity due to excess calories with serious comorbidity and body mass index (BMI) of 35.0 to 35.9 in adult ([facility])- Primary Type 2 diabetes mellitus with diabetic polyneuropathy, with long-term current use of insulin ([facility]) Long-term insulin use ([facility]) Benign essential hypertension ([facility])- Primary Essential hypertension, benign JARAD (generalized anxiety disorder) ([facility]) Generalized anxiety disorder Bilateral leg edema Edema Lumbar spondylosis Lumbosacral spondylosis without myelopathy Benign essential hypertension ([facility]/HCC)- Primary Essential hypertension, benign JARAD (generalized anxiety disorder) ([facility]) Generalized anxiety disorder Lumbar spondylosis Lumbosacral spondylosis without myelopathy Bilateral leg edema Edema Prostate cancer ([facility]) Malignant neoplasm of prostate Type 2 diabetes mellitus with hyperglycemia, with long-term current use of insulin ([facility]) Class 2 severe obesity due to excess calories with serious comorbidity and body mass index (BMI) of 35.0 to 35.9 in adult ([facility])- Primary Type 2 diabetes mellitus with hyperglycemia, with long-term current use of insulin ([facility]) Type 2 diabetes mellitus with diabetic polyneuropathy, with long-term current use of insulin ([facility]) Long-term insulin use ([facility]) Type 2 diabetes mellitus with stage 3a chronic kidney disease, with long-term current use of insulin ([facility]) ([facility]) Class 2 severe obesity due to excess calories with serious comorbidity and body mass index (BMI) of 35.0 to 35.9 in adult [place] [place] Primary Type 2 diabetes mellitus with diabetic polyneuropathy, with long-term current use of insulin ([facility]) Type 2 diabetes mellitus with stage 3a chronic kidney disease, with long-term current use of insulin ([facility]) ([facility] Long[facility]term insulin use ([facility]) Benign essential hypertension ([facility])- Primary Essential hypertension, benign JARAD (generalized anxiety disorder) ([facility]) Generalized anxiety disorder Lumbar spondylosis Lumbosacral spondylosis without myelopathy Type 2 diabetes mellitus with diabetic polyneuropathy, with long-term current use of insulin ([facility]) Type 2 diabetes mellitus with stage 3b chronic kidney disease, with long-term current use of insulin ([facility]) ([facility]) S/P arthroscopy of left shoulder- Primary documented in this encounter [facility] HealthcareEvaluation note* Diagnosis Type 2 diabetes mellitus with diabetic polyneuropathy, with long-term current use of insulin ([facility])- Primary Class 2 severe obesity due to excess calories with serious comorbidity and body mass index (BMI) of 35.0 to 35.9 in adult ([facility])- Primary Type 2 diabetes mellitus with diabetic polyneuropathy, with long-term current use of insulin ([facility]) Long-term insulin use ([facility]) Lumbar spondylosis- Primary Lumbosacral spondylosis without myelopathy Benign essential hypertension ([facility]) Essential hypertension, benign Bilateral leg edema Edema Class 2 severe obesity due to excess calories with serious comorbidity and body mass index (BMI) of 36.0 to 36.9 in adult ([facility])- Primary Type 2 diabetes mellitus with diabetic polyneuropathy, with long-term current use of insulin ([facility]) Benign essential hypertension ([facility])- Primary Essential hypertension, benign Lumbar spondylosis Lumbosacral spondylosis without myelopathy Bilateral leg edema Edema Type 2 diabetes mellitus with diabetic polyneuropathy, with long-term current use of insulin ([facility]) Hypercholesteremia ([facility]) Pure hypercholesterolemia Encounter for long-term (current) use of medications Encounter for long-term (current) use of other medications Obesity (BMI 30-39.9) Body mass index [BMI] 36.0-36.9, adult (Z68.36) JARAD (generalized anxiety disorder) ([facility])- Primary Generalized anxiety disorder Benign essential hypertension ([facility]) Essential hypertension, benign Class 2 severe obesity due to excess calories with serious comorbidity and body mass index (BMI) of 35.0 to 35.9 in adult ([facility])- Primary Type 2 diabetes mellitus with diabetic polyneuropathy, with long-term current use of insulin ([facility]) Long-term insulin use ([facility]) Benign essential hypertension ([facility])- Primary Essential hypertension, benign JARAD (generalized anxiety disorder) ([facility]) Generalized anxiety disorder Bilateral leg edema Edema Lumbar spondylosis Lumbosacral spondylosis without myelopathy Benign essential hypertension ([facility])- Primary Essential hypertension, benign JARAD (generalized anxiety disorder) ([facility]) Generalized anxiety disorder Lumbar spondylosis Lumbosacral spondylosis without myelopathy Bilateral leg edema Edema Prostate cancer ([facility]) Malignant neoplasm of prostate Type 2 diabetes mellitus with hyperglycemia, with long-term current use of insulin ([facility]) Class 2 severe obesity due to excess calories with serious comorbidity and body mass index (BMI) of 35.0 to 35.9 in adult ([facility])- Primary Type 2 diabetes mellitus with hyperglycemia, with long-term current use of insulin ([facility]) Type 2 diabetes mellitus with diabetic polyneuropathy, with long-term current use of insulin ([facility]) Long-term insulin use ([facility]) Type 2 diabetes mellitus with stage 3a chronic kidney disease, with long-term current use of insulin (HCC) ([facility]) Class 2 severe obesity due to excess calories with serious comorbidity and body mass index (BMI) of 35.0 to 35.9 in adult ([facility])- Primary Type 2 diabetes mellitus with diabetic polyneuropathy, with long-term current use of insulin ([facility]) Type 2 diabetes mellitus with stage 3a chronic kidney disease, with long-term current use of insulin (HCC) ([facility]) Long-term insulin use ([facility]) Benign essential hypertension ([facility])- Primary Essential hypertension, benign JARAD (generalized anxiety disorder) ([facility]) Generalized anxiety disorder Lumbar spondylosis Lumbosacral spondylosis without myelopathy Type 2 diabetes mellitus with diabetic polyneuropathy, with long-term current use of insulin ([facility]) Type 2 diabetes mellitus with stage 3b chronic kidney disease, with long-term current use of insulin ([facility]) ([facility]) Class 2 severe obesity due to excess calories with serious comorbidity and body mass index (BMI) of 37.0 to 37.9 in adult ([facility])- Primary Type 2 diabetes mellitus with diabetic polyneuropathy, with long-term current use of insulin ([facility]) Type 2 diabetes mellitus with stage 3b chronic kidney disease, with long-term current use of insulin ([facility]) ([facility]) Type 2 diabetes mellitus with hyperglycemia, with long-term current use of insulin ([facility]) [facility] Obstructive sleep apnea syndrome- Primary Obstructive sleep apnea (adult) (pediatric) documented in this encounter [facility] SystemEvaluation note* Diagnosis Obstructive sleep apnea syndrome Obstructive sleep apnea (adult) (pediatric) CSA (central sleep apnea) Unspecified sleep apnea documented in this encounter [facility] SystemEvaluation note* Diagnosis Personal history of tobacco use, presenting hazards to health- Primary Obstructive sleep apnea syndrome Obstructive sleep apnea (adult) (pediatric) CSA (central sleep apnea) Unspecified sleep apnea documented in this encounter [facility] SystemEvaluation note* Diagnosis Encounter for other preprocedural examination documented in this encounter [facility] SystemEvaluation note* Diagnosis Obstructive sleep apnea syndrome- Primary Obstructive sleep apnea (adult) (pediatric) Personal history of tobacco use, presenting hazards to health documented in this encounter [facility] SystemEvaluation note* Diagnosis Type 2 diabetes mellitus with diabetic polyneuropathy, with long-term current use of insulin ([facility])- Primary Class 2 severe obesity due to excess calories with serious comorbidity and body mass index (BMI) of 35.0 to 35.9 in adult [place] Primary Type 2 diabetes mellitus with diabetic polyneuropathy, with long-term current use of insulin ([facility]) Long-term insulin use [facility] Lumbar spondylosis- Primary Lumbosacral spondylosis without myelopathy Benign essential hypertension ([facility]) Essential hypertension, benign Bilateral leg edema Edema Class 2 severe obesity due to excess calories with serious comorbidity and body mass index (BMI) of 36.0 to 36.9 in adult ([facility] Primary Type 2 diabetes mellitus with diabetic polyneuropathy, with long-term current use of insulin ([facility]) Benign essential hypertension [facility] Primary Essential hypertension, benign Lumbar spondylosis Lumbosacral spondylosis without myelopathy Bilateral leg edema Edema Type 2 diabetes mellitus with diabetic polyneuropathy, with long-term current use of insulin ([facility] Hypercholesteremia [place] Pure hypercholesterolemia Encounter for long-term (current) use of medications Encounter for long-term (current) use of other medications Obesity (BMI 30-39.9) Body mass index [BMI] 36.0-36.9, adult (Z68.36) JARAD (generalized anxiety disorder) ([facility])- Primary Generalized anxiety disorder Benign essential hypertension ([facility]) Essential hypertension, benign Class 2 severe obesity due to excess calories with serious comorbidity and body mass index (BMI) of 35.0 to 35.9 in adult ([facility] Primary Type 2 diabetes mellitus with diabetic polyneuropathy, with long-term current use of insulin ([facility]) Long-term insulin use [facility]) Benign essential hypertension ([facility])- Primary Essential hypertension, benign JARAD (generalized anxiety disorder) ([facility]) Generalized anxiety disorder Bilateral leg edema Edema Lumbar spondylosis Lumbosacral spondylosis without myelopathy Benign essential hypertension ([facility])- Primary Essential hypertension, benign JARAD (generalized anxiety disorder) ([facility]) Generalized anxiety disorder Lumbar spondylosis Lumbosacral spondylosis without myelopathy Bilateral leg edema Edema Prostate cancer ([facility]) Malignant neoplasm of prostate Type 2 diabetes mellitus with hyperglycemia, with long-term current use of insulin ([facility]) Class 2 severe obesity due to excess calories with serious comorbidity and body mass index (BMI) of 35.0 to 35.9 in adult ([facility])- Primary Type 2 diabetes mellitus with hyperglycemia, with long-term current use of insulin (CMS/HCC) Type 2 diabetes mellitus with diabetic polyneuropathy, with long-term current use of insulin (CMS/HCC) Long-term insulin use ([facility]) Type 2 diabetes mellitus with stage 3a chronic kidney disease, with long-term current use of insulin (HCC) ([facility]) Class 2 severe obesity due to excess calories with serious comorbidity and body mass index (BMI) of 35.0 to 35.9 in adult ([facility])- Primary Type 2 diabetes mellitus with diabetic polyneuropathy, with long-term current use of insulin ([facility]) Type 2 diabetes mellitus with stage 3a chronic kidney disease, with long-term current use of insulin (HCC) ([facility]) Long-term insulin use ([facility]) Benign essential hypertension ([facility])- Primary Essential hypertension, benign JARAD (generalized anxiety disorder) ([facility]) Generalized anxiety disorder Lumbar spondylosis Lumbosacral spondylosis without myelopathy Type 2 diabetes mellitus with diabetic polyneuropathy, with long-term current use of insulin ([facility]) Type 2 diabetes mellitus with stage 3b chronic kidney disease, with long-term current use of insulin (HCC) ([facility]) Class 2 severe obesity due to excess calories with serious comorbidity and body mass index (BMI) of 37.0 to 37.9 in adult ([facility])- Primary Type 2 diabetes mellitus with diabetic polyneuropathy, with long-term current use of insulin ([facility]) Type 2 diabetes mellitus with stage 3b chronic kidney disease, with long-term current use of insulin (HCC) ([facility]) Type 2 diabetes mellitus with hyperglycemia, with long-term current use of insulin ([facility]) Diabetic polyneuropathy associated with type 2 diabetes mellitus ([facility]/HCC)- Primary Encounter for long-term (current) use of insulin ([facility]) Encounter for long-term (current) use of insulin Chronic painful diabetic neuropathy ([facility]) 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 documented in [facility] encounter [facility]* Diagnosis SOB (shortness of breath)- Primary Shortness of breath documented in this encounter [facility] SystemEvaluation note* Diagnosis SOB (shortness of breath)- Primary Shortness of breath documented in this encounter [facility] SystemEvaluation note* Diagnosis SOB (shortness of breath)- Primary Shortness of breath Personal history of tobacco use, presenting hazards to health Obstructive sleep apnea syndrome Obstructive sleep apnea (adult) (pediatric) documented in this encounter [facility] SystemEvaluation note* Diagnosis Type 2 diabetes mellitus with diabetic polyneuropathy, with long-term current use of insulin (HCC)- Primary Class 2 severe obesity due to excess calories with serious comorbidity and body mass index (BMI) of 35.0 to 35.9 in adult ([facility])- Primary Type 2 diabetes mellitus with diabetic polyneuropathy, with long-term current use of insulin (HCC) Long-term insulin use ([facility]) Lumbar spondylosis- Primary Lumbosacral spondylosis without myelopathy Benign essential hypertension Essential hypertension, benign Bilateral leg edema Edema Class 2 severe obesity due to excess calories with serious comorbidity and body mass index (BMI) of 36.0 to 36.9 in adult ([facility])- Primary Type 2 diabetes mellitus with diabetic polyneuropathy, with long-term current use of insulin (HCC) Benign essential hypertension- Primary Essential hypertension, benign Lumbar spondylosis Lumbosacral spondylosis without myelopathy Bilateral leg edema Edema Type 2 diabetes mellitus with diabetic polyneuropathy, with long-term current use of insulin ([facility]) Hypercholesteremia Pure hypercholesterolemia Encounter for long-term (current) [...] (BMI) of 35.0 to 35.9 in adult ([facility])- Primary Type 2 diabetes mellitus with [...] hyperglycemia, with long-term current use of insulin ([facility]) Class 2 severe obesity due to excess calories with serious comorbidity and body mass index (BMI) of 35.0 to 35.9 in adult [place] Primary Type 2 diabetes mellitus with hyperglycemia, with long-term current use of insulin ([facility]) Type 2 diabetes mellitus with diabetic polyneuropathy, with long-term current use of insulin ([facility]) Long-term insulin use ([facility]) Type 2 diabetes mellitus with stage 3a chronic kidney disease, with long-term current use of insulin ([facility]) Class 2 severe obesity due to excess calories with serious comorbidity and body mass index (BMI) of 35.0 to 35.9 in adult [place] Primary Type 2 diabetes mellitus with diabetic polyneuropathy, with long-term current use of insulin ([facility]) Type 2 diabetes mellitus with stage 3a chronic kidney disease, with long-term current use of insulin ([facility]) Long-term insulin use ([facility]) Benign essential hypertension- Primary Essential hypertension, benign JARAD (generalized anxiety disorder) Generalized anxiety disorder Lumbar spondylosis Lumbosacral spondylosis without myelopathy Type 2 diabetes mellitus with diabetic polyneuropathy, with long-term current use of insulin ([facility]) Type 2 diabetes mellitus with stage 3b chronic kidney disease, with long-term current use of insulin ([facility]) Class 2 severe obesity due to excess calories with serious comorbidity and body mass index (BMI) of 37.0 to 37.9 in adult ([facility] Primary Type 2 diabetes mellitus with diabetic polyneuropathy, with long-term current use of insulin ([facility]) Type 2 diabetes mellitus with stage 3b chronic kidney disease, with long-term current use of insulin ([facility]) Type 2 diabetes mellitus with hyperglycemia, with long-term current use of insulin ([facility]) Type 2 diabetes mellitus with hyperglycemia, with long-term current use of insulin ([facility])- Primary Primary hypertension Unspecified essential hypertension Insulin long-term use ([facility]) Encounter for long-term (current) use of insulin Hyperlipemia, mixed Mixed hyperlipidemia Encounter for dietary consultation Class 2 severe obesity due to excess calories with serious comorbidity and body mass index (BMI) of 38.0 to 38.9 in adult ([facility] Stage 3b chronic kidney disease ([facility] Type 2 diabetes mellitus with diabetic polyneuropathy, with long-term current use of insulin (HCC) documented in this encounter [facility] Author Kike Bernal [facility] July 24, 2022 1:05pm Note Date/Time July 24, 2022 1 :05pm [facility] [address] [place] [address] Gastroenterology H&P Signed Patient: Milad Seymour MR#: [id number] : 1955 Acct:[id number] Age/Sex: 66 / M Adm Date: 3 Loc: Room: Type: [facility] Attending Dr: Kike Bernal MD Copies [...] signed by Kike Bernal MD> 07/24/22 1305 [facility] Work Phone: History and physical note Author Kike Bernal [facility] April 27, 2023 11:41am Note Date/Time April 27, 2023 11:[address] [facility] [address] [place] [address] Gastroenterology H&P Signed Patient: Milad Seymour MR#: [id number] : 1955 Acct:[id number] Age/Sex: 67 / M Adm Date: 3 Loc: Room: Type: [facility] Attending Dr: Kike Bernal MD Copies [...] signed by Kike Bernal MD> 04/27/23 1141 [facility] Work Phone: History general Narrative - [...] History none in the last year 20 [employer] Other Hospital course Narrative No data available for this section [facility] Hospital Discharge instructions Additional Instructions [...] problems. -Follow up with PCP. -Office number [phone]. [facility] Work Phone: Hospital Discharge instructions No data available for this section [facility] Hospital Discharge instructions Additional Instructions [...] NOT operate machinery such as power tools, [employer] mowers, snow blowers, sewing machines, etc. for [...] in the office as scheduled -Office number [phone]. [facility] Work Phone: InstructionsNot on filedocumented in this encounter [facility] this [facility] on filedocumented in this encounter [facility]Not on filedocumented in this encounter [facility]Not on filedocumented in this encounter [facility] No data available for this section [facility] reason for referral (narrative)No reason for referral [facility] Work Phone: Reason for visit Narrative* Consultation (Routine) - Authorized Specialty Diagnoses / Procedures Referred By Anabel salinas Referred To Contact Physical Therapy Diagnoses S/P arthroscopy of left shoulder Procedures ID OFFICE/OUTPATIENT [facility] Rebecca Bonner PA [address] [place] [id number] Phone: tel: fax: Alma Berkowitz PT Referral ID Status Reason Start Date Expiration Date Visits Requested Visits Authorized [id number] Authorized Consult and Treat 05/13/2024 08/10/2024 12 12 [facility] N[facility]ative* Consultation (Routine) - Closed Specialty Diagnoses / Procedures Referred By Anabel salinas Referred To Contact Physical Therapy Diagnoses S/P arthroscopy of left shoulder Procedures ID OFFICE/OUTPATIENT [facility] Rebecca Bonner PA [address] [address] Phone: tel: fax: Alma Berkowitz PT Referral ID Status Reason Start Date Expiration Date V isits Requested Visits Authorized [id number] Closed Consult and Treat 05/13/2024 08/10/2024 12 12 [facility] HealthcareReason for visit Narrative* Rehabilitation - Outpatient (Routine) - Authorized Specialty Diagnoses / Procedures Referred By Contac t Referred To Contact Physical Therapy Diagnoses S/P arthroscopy of left shoulder Procedures ID THER PX 1/> AREAS EACH 15 MIN NEUROMUSC REEDUCA ID THERAPEUTIC PX 1/> AREAS EACH 15 MIN EXERCISES ID OFFICE/OUTPATIENT NEW HIGH MDM 60 MINUTES PHYS/OCC THERAPY SS Rebecca Dias PA [address] [address] Phone: tel: fax: Alma Brekowitz PT Referral ID Status Reason Start Date Expiration Date V isits Requested Visits Authorized [id number] Authorized 07/01/2024 09/28/2024 12 12 [facility] Healthcare Summary Purpose Family History [...] more parameters with PAP titration Gregoria Ralph, DERMATOLOGIST MANAGING [employer]NER[employer] [address] [facility], [address] [address] Referral ID Status Reason Start Date Expiration Date V isits Requested Visits Authorized [id number] Pending Review 08/15/2023 08/14/2024 1 1 Specialty Diagnoses / Procedures Referred By Contac t Referred To Contact Diagnoses Obstructive sleep apnea syndrome CSA (central sleep apnea) Procedures Echo complete W/O contrast Gregoria Ralph, DERMATOLOGIST MANAGING PARTNER[employer] DIGGER [address] [facility], [address] [place] [address] [facility]) - [facility]ENT [address] [place] [address] Phone: [phone] Referral ID Status Reason Start Date Expiration Date V isits Requested Visits Authorized [id number] Authorized 08/15/2023 11/12/2023 1 1 Specialty Diagnoses / Procedures Referred By Contac t Referred To Contact Radiology Diagnoses Personal history of tobacco use, presenting hazards to health Procedures CT low dose lung screenin (3mo 6mo follow-up) Gregoria Ralph, DERMATOLOGIST MANAGING PARTNER-SEWER DIGGER [address], [address] [place] [address] [facility] [address] [place] [address] Phone: [phone] Referral ID Status Reason Start Date Expiration Date V isits Requested Visits Authorized [id number] Authorized 08/16/2023 11/13/2023 1 1 Additional Source Comments (unrecognized sect ion and content) No Status Records FoundNo Status Records FoundNo Status Records FoundNo Status Records FoundNo Status Records FoundNo Status Records FoundNo Status Records FoundNo Status Records FoundNo Status Records FoundNo Status Records Found INFORMATION SOURCE (unrecogn ized section and content) DATE CREATED AUTHOR 08/06/2021 [facility] DATE CREATED AUTHOR AUTHOR'S ORGANIZ ATION 10/24/2022 [facility] DATE CREATED AUTHOR AUTHOR'S ORGANIZ ATION 12/15/2023 [facility] DATE CREATED AUTHOR AUTHOR'S ORGANIZ ATION 02/05/2024 [facility] DATE CREATED AUTHOR AUTHOR'S ORGANIZ ATION 08/01/2024 [facility] DATE CREATED AUTHOR AUTHOR'S ORGANIZ ATION 08/09/2024 [facility] DATE CREATED AUTHOR AUTHOR'S ORGANIZ ATION 10/28/2024 [facility] DATE CREATED AUTHOR AUTHOR'S ORGANIZ ATION 11/18/2024 [facility] DATE CREATED AUTHOR AUTHOR'S ORGANIZ ATION 12/05/2024 [facility] DATE CREATED AUTHOR AUTHOR'S ORGANIZ ATION 01/30/2025 [facility] EPIC Care Team [...] July 17, 2023 End: July 17, 2023 Long Term Acute Care Registered Nurse Relationship Specialty Start Date End Date Dank Campo MD [address] [place] [address] PCP - General Family Medicine 07/25/23 Long Term Acute Care Registered Nurse Relationship Specialty Start Date End Date Dank Campo MD [address] [place] [address] PCP - General Family Medicine 07/25/23 Team [...] March 17, 2024 End: March 17, 2024 Long Term Acute Care Registered Nurse Relationship Specialty Start Date End Date Dank Campo MD [address] [place] [address] PCP - General Family Medicine 08/17/23 Long Term Acute Care Registered Nurse Relationship Specialty Start Date End Date Dank Campo MD [address] [place] [address] PCP - General Family Medicine 08/17/23 Long Term Acute Care Registered Nurse Relationship Specialty Start Date End Date Dank Campo MD [address] [address] PCP - General Family Medicine 08/17/23 Long Term Acute Care Registered Nurse Relationship Specialty Start Date End Date Dank Campo MD [address] [place] [address] PCP - General Family Medicine 08/17/23 Long Term Acute Care Registered Nurse Relationship Specialty Start Date End Date Dank Campo MD [address] [place] [address] PCP - General Family Medicine 08/17/23 Long Term Acute Care Registered Nurse Relationship Specialty Start Date End Date Dank Campo MD [address] [place] [address] PCP - General Family Medicine 08/17/23 Long Term Acute Care Registered Nurse Relationship Specialty Start Date End Date Dank Campo MD [address] [place] [address] PCP - General Family Medicine 08/17/23 Team Status: Inactive Member Role Status Dates Dank Campo MD Primary Care Provider Active S tart: April 15, 2024 End: April 15, 2024 Rich Alvares APRN Attending Provider Active Start: April 15, 2024 End: April 15, 2024 Long Term Acute Care Registered Nurse Relationship Specialty Start Date End Date Dank Campo MD [address] [place] [address] PCP - General Family Medicine 08/17/23 Long Term Acute Care Registered Nurse Relationship Specialty Start Date End Date Dank Campo MD [address] [place] [address] PCP - General Family Medicine 08/17/23 Long Term Acute Care Registered Nurse Relationship Specialty Start Date End Date Dank Campo MD [address] [place] [address] PCP - General Family Medicine 08/17/23 Long Term Acute Care Registered Nurse Relationship Specialty Start Date End Date Dank Campo MD [address] [place] [address] PCP - General Family Medicine 08/17/23 Long Term Acute Care Registered Nurse Relationship Specialty Start Date End Date Dank Campo MD [address] [place] [address] PCP - General Family Medicine 08/17/23 Long Term Acute Care Registered Nurse Relationship Specialty Start Date End Date Dank Campo MD [address] [place] [address] PCP - General Family Medicine 08/17/23 Long Term Acute Care Registered Nurse Relationship Specialty Start Date End Date Dank Campo MD [address] [place] [address] PCP - General Family Medicine 08/17/23 Long Term Acute Care Registered Nurse Relationship Specialty Start Date End Date Dank Campo MD [address] [place] [address] PCP - General Family Medicine 08/17/23 Long Term Acute Care Registered Nurse Relationship Specialty Start Date End Date Dank Campo MD [address] [place] [address] PCP - General Family Medicine 08/17/23 Long Term Acute Care Registered Nurse Relationship Specialty Start Date End Date Dank Campo MD [address] [place] [address] PCP - General Family Medicine 08/17/23 Long Term Acute Care Registered Nurse Relationship Specialty Start Date End Date Dank Campo MD [address] [place] [address] PCP - General Family Medicine 08/17/23 Long Term Acute Care Registered Nurse Relationship Specialty Start Date End Date Dank Campo MD [address] [place] [address] PCP - General Family Medicine 08/17/23 Long Term Acute Care Registered Nurse Relationship Specialty Start Date End Date Dank Campo MD [address] [place] [address] PCP - General Family Medicine 08/17/23 Long Term Acute Care Registered Nurse Relationship Specialty Start Date End Date Dank Campo MD [address] [place] [address] PCP - General Family Medicine 08/17/23 Long Term Acute Care Registered Nurse Relationship Specialty Start Date End Date Dank Campo MD [address] [place] [address] PCP - General Family Medicine 08/17/23 Long Term Acute Care Registered Nurse Relationship Specialty Start Date End Date Dank Campo MD [address] [place] [address] PCP - General Family Medicine 08/17/23 Long Term Acute Care Registered Nurse Relationship Specialty Start Date End Date Dank Campo MD [address] [place] [address] PCP - General Family Medicine 08/17/23 Long Term Acute Care Registered Nurse Relationship Specialty Start Date End Date Dank Campo MD [address] [place] [address] PCP - General Family Medicine 08/17/23 Long Term Acute Care Registered Nurse Relationship Specialty Start Date End Date Dank Campo MD [address] [place] [address] PCP - General Family Medicine 08/17/23 Long Term Acute Care Registered Nurse Relationship Specialty Start Date End Date Dank Campo MD [address] [place] [address] PCP - General Family Medicine 08/17/23 Long Term Acute Care Registered Nurse Relationship Specialty Start Date End Date Dank Campo MD [address] [place] [address] PCP - General Family Medicine 08/17/23 Long Term Acute Care Registered Nurse Relationship Specialty Start Date End Date Dank Campo MD [address] [place] [address] PCP - General Family Medicine 08/17/23 Long Term Acute Care Registered Nurse Relationship Specialty Start Date End Date Dank Campo MD [address] [place] [address] PCP - General Family Medicine 08/17/23 Long Term Acute Care Registered Nurse Relationship Specialty Start Date End Date Dank Campo MD [address] [place] [address] PCP - General Family Medicine 08/17/23 Long Term Acute Care Registered Nurse Relationship Specialty Start Date End Date Dank Campo MD [address] [place] [address] PCP - General Family Medicine 08/17/23 Long Term Acute Care Registered Nurse Relationship Specialty Start Date End Date Dank Campo MD [address] [place] [address] PCP - General Family Medicine 08/17/23 Long Term Acute Care Registered Nurse Relationship Specialty Start Date End Date Dank Campo MD [address] [place] [address] PCP - General Family Medicine 08/17/23 Long Term Acute Care Registered Nurse Relationship Specialty Start Date End Date Dank Campo MD [address] [place] [address] PCP - General Family Medicine 08/17/23 Long Term Acute Care Registered Nurse Relationship Specialty Start Date End Date Dank Campo MD [address] [place] [address] PCP - General Family Medicine 08/17/23 Long Term Acute Care Registered Nurse Relationship Specialty Start Date End Date Dank Campo MD [address] [place] [address] PCP - General Family Medicine 08/17/23 Long Term Acute Care Registered Nurse Relationship Specialty Start Date End Date Dank Campo MD [address] [place] [address] PCP - General Family Medicine 08/17/23 Team Status: Inactive Member Role Status Dates Dank Campo MD Primary Care Provider Active S tart: July 30, 2024 End: July 30, 2024 Rich Alvares APRN Attending Provider Active Start: July 30, 2024 End: July 30, 2024 Long Term Acute Care Registered Nurse Relationship Specialty Start Date End Date Dank Campo MD [address] [place] [address] PCP - General Family Medicine 08/17/23 Long Term Acute Care Registered Nurse Relationship Specialty Start Date End Date Dank Campo MD [address] [place] [address] PCP - General Family Medicine 12/10/17 Long Term Acute Care Registered Nurse Relationship Specialty Start Date End Date Dank Campo MD [address] [place] [address] PCP - General Family Medicine 12/10/17 Long Term Acute Care Registered Nurse Relationship Specialty Start Date End Date Dank Campo MD [address] [place] [address] PCP - General Family Medicine 12/10/17 Long Term Acute Care Registered Nurse Relationship Specialty Start Date End Date Dank Campo MD [address] [facility] [place] [place] [address] PCP - General Family Medicine 12/10/17 Long Term Acute Care Registered Nurse Relationship Specialty Start Date End Date Dank Campo MD [address] [place] [address] PCP - General Family Medicine 12/10/17 Long Term Acute Care Registered Nurse Relationship Specialty Start Date End Date Dank Campo MD [address] [place] [address] PCP - General Family Medicine 12/10/17 Long Term Acute Care Registered Nurse Relationship Specialty Start Date End Date Dank Campo MD [address] [facility] [place] [place] [address] PCP - General Family Medicine 12/10/17 Long Term Acute Care Registered Nurse Relationship Specialty Start Date End Date Dank Campo MD [address] [place] [address] PCP - General Family Medicine 03/12/24 Long Term Acute Care Registered Nurse Relationship Specialty Start Date End Date Dank Campo MD PCP - General Family Medicine 12/10/17 Long Term Acute Care Registered Nurse Relationship Specialty Start Date End Date Dank Capmo MD PCP - General Family Medicine 12/10/17 Team Status: Inactive Member Role Status Dates Dank Campo MD Primary Care Provider Active S tart: 2024 End: 2024 Rich Alvares APRN Attending Provider Active Start: 2024 End: 2024 Long Term Acute Care Registered Nurse Relationship Specialty Start Date End Date Dank Campo MD [address] [place] [address] PCP - General Family Medicine 08/17/23 Dank Campo MD [address] [place] [address] PCP - Sadia ARMSTRONG 06/18/24 Long Term Acute Care Registered Nurse Relationship Specialty Start Date End Date Dank Campo MD PCP - General Family Medicine 03/12/24 Long Term Acute Care Registered Nurse Relationship Specialty Start Date End Date Dank Campo MD PCP - General Family Medicine 03/12/24 Long Term Acute Care Registered Nurse Relationship Specialty Start Date End Date Dank Campo MD PCP - General Family Medicine 03/12/24 Team Status: Inactive Member Role Status Dates Dank Campo MD Primary Care Provider Active S tart: December 23, 2024 End: December 23, 2024 Rich Alvares APRN Attending Provider Active Start: December 23, 2024 End: December 23, 2024 Long Term Acute Care Registered Nurse Relationship Specialty Start Date End Date Dank Campo MD [address] [place] [address] PCP - General Family Medicine 08/17/23 Long Term Acute Care Registered Nurse Relationship Specialty Start Date End Date Dank Campo MD [address] [place] [address] PCP - General Family Medicine 08/17/23 Long Term Acute Care Registered Nurse Relationship Specialty Start Date End Date Dank [...] more parameters with PAP titration Gregoria Ralph, DERMATOLOGIST MANAGING PARTNER-SEWER DIGGER [address], [address] [place] [address] Referral ID Status Reason Start Date Expiration Date Visits Re quested Visits Authorized [id number] Closed 08/15/2023 08/14/2024 1 1 Reason Comments Sleep Apnea DME: [facility] Specialty Diagnoses / Procedures Referred By Anabel salinas Referred To Contact Pulmonary Medicine / Sleep Medicine Diagnoses Obstructive sleep apnea syndrome Jyoti Roth, DERMATOLOGIST MANAGING PARTNER-SEWER DIGGER [address] [facility] [address] [place] [address] sp Pulm Sleep [facility] [address] [place] [address] [place] [address] Referral ID Status Reason Start Date Expiration Date Visits Requested Visits Authorized [id number] Pending Review Specialty Services Required 08/13/2023 08/12/2024 [...] MINUTES Dank Campo MD [address] [place] [address] Phone: tel: fax: [place] [address], [address] [place] [address] Phone: tel: fax: Referral ID Status Reason Start Date Expiration Date Visits Requested Visits Authorized [id number] Pending Review Specialty Services Required 12/02/2024 05/31/2025 [...] BE BASED ON THE PRIMARY CLINICAL RECORDS. [facility] [email or web address] [facility]. provides no warranty or guarantee of the accuracy or completeness of information in this document.
[2025-02-03 09:08] LABS: Prostate Specific Antigen Dx 0.14 ng/mL (<=4.00)
== END 2025-02-03 07:43 | disposition home or self-care (01) ==
LOC: LAB 07:43
PROVIDERS: PCP Family Medicine; Visit Provider Urology
DX: Z85.46 Personal history of malignant neoplasm of prostate (principal)
CPT/HCPCS: 36415; 84153

== ENCOUNTER 2025-05-28 07:52 | Outpatient (OUT) | payer MEDICARE, SELFPAY ==
--- OUTSIDE RECORDS SUMMARY | 2025-05-28 07:56 | XMS_ITS | Clinical Summary ---
Author Organization [facility] Address [address] [place] [address] Care Team Providers Care Criminal Intelligence Analyst Name Role Phone Unavailable Primary Care Provider Unavailabl e Social History Tobacco UseTypesPacks/DayYears UsedDateSmoking Tobacco: Never AssessedSex and Gender InformationValueDate RecordedSex Assigned at BirthNot on fileLegal Sex Male12/15/2021 12:14 AM EDTGender IdentityNot on fileSexual OrientationNot on file Last Filed Vital Signs Vital SignReadingTime TakenCommentsBlood Hfsvfjki116/[id number] 4:12 PM EDT Pulse--Temperature--Respiratory Rate--Oxygen Jaryfvsiuf78%11/19/2018 4:11 PM EDT Inhaled Oxygen Concentration--Xwzubs605 kg (241 lb)11/19/2018 3:41 PM EDTHeight 177.8 cm (5' 10 )11/19/2018 3:48 PM EDTBody Mass Index34.58011/19/2018 3:41 PM EDT Plan of Treatment Not on file
--- OUTSIDE RECORDS SUMMARY | 2025-05-28 07:57 | XMS_ITS | CCD ---
Author Organization [facility] Care Team Providers Care Chemical Educator Name Role Phone DANK CAMPO Primary Care Physician [phone] MD Dank Campo Primary Care Provider MD Kike Bernal Attending Provider Asaad, Imad Unavailable ARUN ., MR REBECCA Admitting Unavailable NADEREGraciela, DR [...] NADERER, DR DANK Leon Primary Care Unavailable BERNARD, DR SORIN Rodarte Consulting Unavailable NADERER, DR DANK Leon Admitting Unavailable NADERER, DR DANK Leon Attending Unavailable NADERER, DR DANK Leon Primary Care Unavailable ALBER, DR DANK Leon Consulting Unavailable MD Dank Campo Primary Care Provider MD Kike Bernal Attending Provider MD Dank Campo Attending Provider MD Dank Campo Attending Provider [phone] Dank Campo MD Primary Care Provider [phone] MD Dank Campo Primary Care Provider [phone] KERRI Boswell Attending Provider MD Dank aCmpo Referring Provider GREGORIA RALPH Referring Unavailable DANK CAMPO Primary Care Unavailable Dank Campo MD Primary Care Provider Dank Campo MD Primary Care Provider Rich Alvares APRN Attending Provider Dank Campo Primary Care Unavailable Asajamia, Imad Attending Unavailable Dolores, Imad Admitting Unavailable Dank Campo Admitting Unavailable Dank Campo Referring Unavailable Dank Campo Attending Unavailable Dank Campo Primary Care Unavailable Jyoti Roth Admitting Unavailable Alber, Dank Primary Care Unavailable Jyoti Roth Attending Unavailable Dank Campo Admitting Unavailable Dank Campo Attending Unavailable Dank Campo Primary Care Unavailable Alber, Dank Primary Care Unavailable Rich Alvares Attending Unavailable Rich Alvares Admitting Unavailable Dank Campo MD Primary Care Provider Dank Campo MD Primary Care Provider Dank Campo MD Primary Care Provider Giedraitis , Andrius Vytautas Attending Unavailable Giedraitis , Andrius Vytautas Attending Unavailable Giedraitis , Andrius Vytautas Attending Unavailable Giedraitis , Andrius Vytautas Attending Unavailable Gieditis , Andrius Vytautas Attending Unavailable Gistephanieitis , Andrius Vytautas Attending Unavailable Gieditis , Andrius Vytautas Attending Unavailable Giedjames RAYMUNDO, Andrius Vytautas Attending Unavailable Dank Campo MD Primary Care Provider [phone] Rich Alvares APRN Attending Provider Dank Campo MD Unavailable Alber RAYMUNDO, Dank Primary Care Provider HANNA BUTCHER Attending Unavailable FELIXERER, DANK Referring Unavailable NADERER, DANK Primary Care Unavailable HANNA BUTCHER Attending Unavailable NADEREGraciela, DANK Referring Unavailable NADERER, DANK Primary Care Unavailable NADERER, DANK Primary Care Unavailable HANNA BUTCHER Attending Unavailable HANNA BUTCHER Referring Unavailable NADERER, DANK Primary Care Unavailable REBECCA DIAS Referring Unavailable NADERER, DANK Primary Care Unavailable HANNA BUTCHER Attending Unavailable HANNA BUTCHER Referring Unavailable NADERER, DANK Primary Care Unavailable HANNA BUTCHER Attending Unavailable HANNA BUTCHER Referring Unavailable HANNA BUTCHER Attending Unavailable FELIXEREGraciela, DANK Referring Unavailable NADEREGraciela, DANK Primary Care Unavailable Dank Campo MD Primary Care Provider Rich Alvares APRN Attending Provider Dank Campo MD Primary Care Provider Peterson PETERSEN Attending Unavailable Peterson PETERSEN Attending Unavailable Peterson PETERSEN Attending Unavailable Peterson PETERSEN Attending Unavailable Peterson PETERSEN Admitting Unavailable Peterson PETERSEN Attending Unavailable Dank Campo MD Primary Care Provider [phone] Dank Campo MD Primary Care Provider Ashli Ross DO Primary Care Provider [phone] Dnak Campo MD Unavailable REBECCA DIAS Attending Unavailable ASHLI ROSS Attending Unavailable DEXTER KRISHNAMURTHY Attending Unavailable DEB MATTHEW Attending Unavailable DANK CAMPO Referring Unavailable REBECCA DIAS Attending Unavailable REBECCA DIAS Referring Unavailable DEB MATTHEW Attending Unavailable REBECCA DIAS Attending Unavailable ALMA BERKOWITZ Attending Unavailable REBECCA DIAS Referring Unavailable KADEN HICKMAN Attending Unavailable REBECCA DIAS Referring Unavailable KADEN HICKMAN Attending Unavailable REBECCA DIAS Referring Unavailable DANK CAMPO Attending Unavailable VALENTINE SIMON Attending Unavailable REBECCA DIAS Referring Unavailable DEXTER KRISHNAMURTHY Attending Unavailable DEXTER KRISHNAMURTHY Referring Unavailable KADEN HICKMAN Attending Unavailable REBECCA DIAS Referring Unavailable SHANNA WARD Attending Unavailable ARUN, REBECCA Cornell Referring Unavailable KANDICE, ALMA Attending Unavailable ARUN, REBECCA Cornell Referring Unavailable KANDICE, ALMA Attending Unavailable ARUN, REBECCA Cornell Referring Unavailable JUSTINA CARRILLO Attending Unavailable ARUN, REBECCA Cornell Referring Unavailable BERKOWITZ, ALMA Attending Unavailable ARUN, REBECCA Cornell Referring Unavailable ARUN, REBECCA Cornell Attending Unavailable KADEN HICKMAN Attending Unavailable ARUN, REBECCA Cornell Referring Unavailable KANDICE, ALMA Attending Unavailable ARUN, REBECCA Cornell Referring Unavailable MAUREEN THOMPSON Attending Unavailable ARUN, REBECCA Cornell Referring Unavailable Dank Campo MD Primary Care Provider [phone] Allergies Allergy ClassificationReported Allergen(s)Allergy TypeDate of OnsetReaction(s) Facility (2 sources)No Known Medication Allergies; Translations: [No Known Medication Allergies]Propensity to adverse reactions (disorder)[facility] Medications Current Medications MedicationDrug Class(es)DatesSig (Normalized)Sig (Original)amoxicillin 875 mg oral tablet (14 sources)Penicillin-class AntibacterialStart: 26-32-2729aeyx 1 tablet by mouth twice dailyamoxicillin (Amoxil) 875 MG tablet TAKE 1 TABLET BY MOUTH TWICE DAILY UNTIL GONE 07/28/2024 Activeaspirin 81 mg delayed release oral tablet (20 sources)Platelet Aggregation Inhibitor, Nonsteroidal Anti-inflammatory Drug Start: 65-15-6390oivu 1 mg by mouth once dailyaspirin 81 mg Oral EC Tab mg tab(s), Oral, Daily, Refills(s) 0 Start Date: 01/28/21 Status: Ordered Repeat number: 1ASPIRIN 81 MG chewable tablet Chew 81 mg Daily ActiveBaclofen (20 sources)gamma-Aminobutyric Acid-ergic AgonistStart: 52-43-4486ierzabbr Oral, TID, Refills(s) 0 Start Date: 03/31/19 Status: OrderedStart: 01-30-2019 End: 64-55-3333flgk 1 tablet by mouth three times dailyBaclofen 20 mg Tablet Discontinued 20 MG PO Three times daily January 30, 2019 12:00am March 172023 10:20amcelecoxib 200 mg oral capsule (20 sources)Nonsteroidal Anti-inflammatory DrugStart: 46-65-2849nlfumpxdb Oral, Refills(s) 0 Start Date: 03/31/19 Status: Ordered Repeat number: 1Start: 65-55-7350cnufibuzt Oral, Refills(s) 0 Start Date: 03/31/19 Status: Ordered Start: 75-64-3001wltu 1 capsule by mouth in the morningcelecoxib (CeleBREX) 200 MG capsule Indications: Lumbago with sciatica, right side Take 1 capsule (200 mg) by mouth in the morning and 1 capsule (200 mg) before bedtime. 60 capsule 5 10/27/2024 ActiveContinuous Blood Gluc Sensor (Dexcom G7 Sensor) mis (20 sources)Start: 06-05-2023 End: 39-38-1299Xyharhtcbw Blood Gluc Sensor (Dexcom G7 Sensor[place] [facility] [place]ications: Type 2 diabetes mellitus with diabetic polyneuropathy, with long-term current use of insulin ([facility]) Inject 1 Device under the skinSee administration instructions Change every 10 days 9 each 3 06/05/2023 06/04/2024 Active Continuous Blood Gluc Sensor (FreeStyle Cornelius 2 Sensor) mis (2 sources)Start: 05-23-2023 End: 81-22-1691Ukwvtnsith Blood Gluc Sensor (FreeStyle Cornelius 2 Sensor) [facility] [place]ications: Type 2 diabetes mellitus with diabetic polyneuropathy, with long- term current use of insulin (CMS/[facility]) Use as directed 2 each11 05/23/2023 07/30/2023 Discontinued (Therapy completed)Continuous Glucose Sensor (Dexcom G7 Sensor) misc (20 sources)Start: 12-89-1234Suinajxxdi Glucose Sensor (Dexcom G7 Sensor) [facility] [place]ications: Type 2 diabetes mellitus with diabetic polyneuropathy, with long- term current use of insulin ([facility]) USE DIRECTED to check BLOOD SUGAR *change EVERY TEN days * 9 each 3 06/13/2024 ActiveStart: 57-80-4918Jehsuvtpmg Glucose Sensor (Dexcom G7 Sensor) [facility] Indications: Type 2 diabetes mellitus with diabetic polyneuropathy, with long-term current use of insulin (CMS/[facility]) USE DIRECTED to check BLOOD SUGAR *change EVERY TEN days * 9 each 3 06/13/2024 Activecyclobenzaprine (20 sources)Muscle RelaxantStart: 64-93-1290llzmlwyqwqzfidp Active PO April 15, 2024 12:00am Complies with drug therapyStart: 95-74-4985bhsrlgpdthkmrgr Active PO April 14, 2024 11:00pmStart: 88-52-6671rsbymwihdnktlhn Active PO April 15, 2024 12:00amStart: 01-19-2024 End: 80-94-8191gdgn 1 tablet by mouth three times daily as needed for muscle spasmscyclobenzaprine 10 mg Tab 10 mg = 1 tab(s), Oral, TID, PRN for spasm, # 30 tab(s), Refills(s) 0 Start Date: 02/04/24 Status: Ordered Quantity: 30.0 Unit: tab(s) Repeat number: 1diazePAM 5 mg oral tablet (18 sources)BenzodiazepineStart: 11-14-2023 End: 03-52-8889taxa 1 tablet by mouth three times daily as needed for anxiety diazePAM (Valium) 5 MG tablet Indications: JARAD (generalized anxiety disorder) ([facility]) Take 1 tablet (5 mg) by mouth 3 (three) times a day as needed for anxiety for up to 20 days 60 tablet 11/14/2023 04/08/2024 DiscontinuedStart: 88-39-6916kqhaqDGG (Valium) 5 MG tablet Indications: Anxiety Take 1 tablet (5 mg) by mouth 1 (one) time for 1dose Take 30 minutes prior to MRI. 2 tablet 0 06/21/2023 Activedicyclomine hydrochloride 10 mg oral capsule (13 sources)AnticholinergicStart: 09-40-9733svyt 1 capsule by mouth three times dailyDicyclomine 10 mg capsule Active 10 MG PO Three times daily August 05, 2024 1:00am Complies with drug therapyStart: 02-11-2020 End: 81-37-2844kfdd 1 tablet by mouth three times dailyDicyclomine 20 mg Tablet Discontinued 20 MG PO Three times daily February 11, 2020 12:00am December 08, 2020 9:09amempagliflozin 25 mg oral tablet (10 sources)Sodium-Glucose Cotransporter 2 InhibitorStart: 01-28-2025 End: 16-62-7070jblz 1 tablet by mouth once dailyempagliflozin (Jardiance) 25 MG Indications: Type 2 diabetes mellitus with hyperglycemia, with long-term current use of insulin (HCC) Take 1 tablet (25 mg) by mouth Daily 90 tablet 1 01/28/2025 07/27/2025 Activefluorometholone 1 mg/ml ophthalmic suspension (20 sources)CorticosteroidStart: 28-50-9457okgi 1 drop(s) into the eye(s) four times daily, then take 1 drop(s) into the eye(s) twice dailyfluorometholone (FML) 0.1 % ophthalmic suspension instill 1 (ONE) DROP IN BOTH EYES FOUR TIMES DAILY FOR 7 DAYS then instill 1 (ONE) DROP IN BOTH EYES TWICE DAILY FOR 7 DAYS 12/28/2022 ActiveFLUoxetine 40 mg oral capsule (20 sources)Serotonin Reuptake InhibitorStart: 29-31-6184kvsl 1 capsule by mouth once dailyFLUoxetine (PROzac) 40 MG capsule Indications: JARAD (generalized anxiety disorder) Take 1 capsule (40 mg) by mouth Daily 90 capsule 3 05/28/2024 ActiveStart: 10-30-2023 End: 69-70-2419llij 1 capsule by mouth in the morningFLUoxetine (PROzac) 20 mg capsule Take 1 capsule (20 mg total) by mouth in the morning. 01/07/2024 Active fluticasone 0.05 mg/inh Nasal Foss (6 sources)Start: 76-38-8343nnkfnueklsh 0.05 mg/inh Nasal Foss Nasal, Daily, Refill(s) 0 Start Date: 07/28/19 Status: Ordered Repeat number: 1Start: 56-33-1913xkobpcxjcru 0.05 mg/inh Nasal Foss Nasal, Daily, Refill(s) 0 Start Date: 07/28/19 Status: Orderedgabapentin 300 mg oral capsule (20 sources)Anti-epileptic AgentStart: 56-41-2516bxec 1 capsule by mouth in the morninggabapentin (Neurontin) 300 MG capsule Take 300 mg by mouth in the morning and 300 mg before bedtime. 07/13/2024 ActiveStart: 16-13-4253fcezlvtvug Active PO April 15, 2024 12:00am Complies with drug therapyStart: 04-15-2024 gabapentin Active PO April 14, 2024 11:00pmStart: 29-22-8915vsnqsugjfu Active PO April 15, 2024 12:00am End: 77-39-8233nppprrnqvu (Neurontin) 100 MG capsule Take by mouth 07/31/2024 Discontinued3 ml insulin glargine 100 unt/ml pen injector (20 sources)Insulin AnalogStart: 44-17-7448nbugwuf glargine (Lantus SoloStar) 100 UNIT/ML pen Indications: Type 2 diabetes mellitus with hyperglycemia, with long-term current use of insulin (HCC) INJECT 40 UNITS SUBCUTANEOUSLY (UNDER THE SKIN) EVERY MORNING & BEFORE bedtime 80 mL 1 01/29/2025 ActiveStart: 01-28-2025 End: 59-27-9589yrgfvb 40 [IU] by subcutaneous injection in the morninginsulin glargine (Lantus SoloStar) 100 UNIT/ML pen Indications: Type 2 diabetes mellitus with hyperglycemia, with long-term current use of insulin (HCC) Inject 40 Units under the skin in the morning and 40 Units before bedtime. 72 mL 1 01/28/2025 07/27/2025 ActiveStart: 63-58-7207Tajajz SoloStar 100 UNIT/ML pen Indications: Type 2 diabetes mellitus with diabetic polyneuropathy,with long-term current use of insulin (CMS/HCC) INJECT 60 UNITS SUBCUTANEOUSLY AT BEDTIME 60 mL 3 ActiveStart: 07-31-2024 End: 39-98-9878ucvakru glargine (Lantus SoloStar) 100 UNIT/ML pen Indications: Type 2 diabetes mellitus with diabetic polyneuropathy, with long-term current use of insulin (HCC) INJECT 70 UNITS SUBCUTANEOUSLY AT BEDTIME 60 mL 3 10/10/2024 01/28/2025 Discontinued (Dose adjustment)Start: 04-29-2024 End: 96-26-6602zjcbyzo glargine (Lantus SoloStar) 100 UNIT/ML pen Indications: Type 2 diabetes mellitus with diabetic polyneuropathy, with long-term current use of insulin (CMS/HCC) Inject 65 Units under the skin at bedtime 60 mL 3 04/29/2024 07/31/2024 Discontinued (Dose adjustment)Start: 08-09-2023 End: 45-02-2859eworszg glargine (Lantus SoloStar) 100 UNIT/ML pen Indications: Type 2 diabetes mellitus with diabetic polyneuropathy, with long-term current use of insulin (CMS/HCC) Inject 60 Units under the skin at bedtime 60 mL 3 08/09/2023 04/29/2024 Discontinued (Dose adjustment)Start: 18-79-8733Cgavfqb Glargine (Lantus Solostar U-100 Insulin) 100 unit/mL (3 mL) Insulin Pen Active 60 UNIT SUBCUT Every evening April 27, 2023 1:00am Complies with drug therapyStart: 01-16-2023 End: 81-09-9495Zqjzow SoloStar 100 UNIT/ML pen Indications: Type 2 diabetes mellitus with diabetic polyneuropathy,with long-term current use of insulin (CMS/HCC) Inject 60 Units under the skin at bedtime 30 mL 3 07/30/2023 Active3 ml insulin lispro 100 unt/ml pen injector (20 sources)Insulin AnalogStart: 01-28-2025 End: 62-61-1998qbzohnj lispro (HumaLOG KWIKPEN) 100 UNIT/ML injection Indications: Type 2 diabetes mellitus with hyperglycemia, with long-term current use of insulin (HCC) Inject 30 Units under the skin in the morning and 30 Units at noon and 30 Units in the evening. Inject with meals. 81 mL 1 01/28/2025 07/27/2025 ActiveStart: 07-31-2024 End: 35-85-7706wchobht lispro (HumaLOG) 100 UNIT/ML injection Indications: Type 2 diabetes mellitus with diabetic polyneuropathy, with long-term current use of insulin (HCC) INJECT 18 UNITS BREAKFAST/LUNCH, 35 units DINNER PLUS CORRECTIONS OF 1:30 > 150MG/DL ( MAX 100 UNITS A DAY) 90 mL 3 07/31/2024 01/28/2025 Discontinued (Dose adjustment)Start: 04-29-2024 End: 98-63-0864pteqzgm lispro (HumaLOG) 100 UNIT/ML injection Indications: Type 2 diabetes mellitus with diabetic polyneuropathy, with long-term current use of insulin (CMS/HCC) INJECT 12 UNITS BREAKFAST, 25 UNITS LUNCH/ DINNER PLUS CORRECTIONS OF 1:30 > 150MG/DL ( MAX 100 UNITS A DAY) 90 mL 3 06/16/20242024 Discontinued (Dose adjustment)Start: 49-84-8527gqogpnm lispro (HumaLOG) 100 UNIT/ML injection Indications: Type 2 diabetes mellitus with diabetic p olyneuropathy, with long-term current use of insulin ([facility]) INJECT 5-10 UNITS BREAKFAST, 30 UNITS LUNCH/ DINNER PLUS CORRECTIONS OF 1:30 > 150MG/DL ( MAX 100 UNITS A DAY) 90 mL 3 03/17/2024 ActiveStart: 10-30-2023 End: 43-32-9750zdejcur lispro (HumaLOG) 100 UNIT/ML injection Indications: Type 2 diabetes mellitus with diabetic polyneuropathy, with long-term current use of insulin ([facility]) INJECT 5-10 UNITS BREAKFAST, 30 UNITS LUNCH/ DINNER PLUS CORRECTIONS OF 1:30 > 150MG/DL ( MAX 100 UNITS A DAY) 90 mL 3 03/17/202404/18 Discontinued (Dose adjustment)Start: 50-97-6477nqcrfkc lispro (HumaLOG) 100 UNIT/ML injection Indications: Type 2 diabetes mellitus with diabetic p olyneuropathy, with long-term current use of insulin ([facility]) INJECT 8-15 UNITS BREAKFAST, 20 UNITS LUNCH AND 30 UNITS DINNER PLUS CORRECTIONS OF 1:30 > 150MG/DL ( MAX 100 UNITS A DAY) 90 mL 3 06/05/2023 ActiveStart: 15-53-6857smuihc 30 [IU] by subcutaneous injection once daily at mealtimeinsulin lispro (HumaLOG) 100 UNIT/ML injection Indications: Type 2 diabetes mellitus with hyperglycemia, with long-term current use of insulin ([facility]) INJECT 30 UNITS SUBCUTANEOUSLY (UNDER THE SKIN) EVERY MORNING, at noon, & EVERY EVENING WITH MEALS 90 mL 1 01/29/2025 ActiveStart: 60-53-2098xfctdn 1 dose by subcutaneous injection once before mealtimeInsulin Lispro Active 1 sliding scale dose SUBCUT 3x/Day before meals April 27, 2023 1:00amStart: 23-99-2928updkez 1 dose by subcutaneous injection once before mealtimeInsulin Lispro Active 1 sliding scale dose SUBCUT 3x/Day before meals April 27, 2023 12:00amStart: 02-12-2023 Insulin Lispro KwikPen 100 units/mL injectable solution Refills(s) 0 Start Date: 02/12/23 Status: Ordered Repeat number: 1HumaLOG ActiveInsulin Lispro 100 unit/mL insulin pen (3 sources)Start: 25-12-7270hbokri 1 dose by subcutaneous injection once before mealtimeInsulin Lispro 100 unit/mL insulin pen Active 1 sliding scale dose SUBCUT 3x/Day before meals April 27, 2023 1:00amStart: 02-08-5216eunhor 1 dose by subcutaneous injection once before mealtimeInsulin Lispro 100 unit/mL insulin pen Active 1 sliding scale dose SUBCUT 3x/Day before meals April 27, 2023 12:00amInsulin Lispro KwikPen 100 units/mL injectable solution (1 source)Start: 80-41-8822Fkwbjdq Lispro KwikPen 100 units/mL injectable solution Refills(s) 0 Start Date: 02/12/23 Status: Orderedketoconazole 20 mg/ml topical cream (7 sources)Azole AntifungalStart: 13-58-9276Lhbfukmpmcdh 2 % cream Active 1 APPLIC TOPICAL Twice daily August 09, 2023 1:00am Complies withdrug therapy lansoprazole (20 sources)Proton Pump InhibitorStart: 55-63-8140yaedphryclhw Oral, Daily, Refills(s) 0 Start Date: 03/31/19 Status: Ordered Repeat number: 1Start: 22-15-6099anlbxmssrohh Oral, Daily, Refills(s) 0 Start Date: 03/31/19 Status: OrderedStart: 01-30-2019 End: 54-24-5616iuzr 1 capsule by mouth twice dailyLansoprazole 30 mg capsule,delayed release(DR/EC) Discontinued 30 MG PO Twice daily 60 30 March 04, 2024 2:43pm March 17, 2024 10:40amStart: 34-81-6455zany 30 mg by mouth once dailyLansoprazole Active 30 MG PO Daily January 29, 2019 11:00pm lisinopril 10 mg oral tablet (20 sources)Angiotensin Converting Enzyme InhibitorStart: 06-12-2024 End: 00-73-9374pcbc 1 tablet by mouth twice dailylisinopril 10 MG tablet Indications: Essential (primary) hypertension TAKE 1 TABLET BY MOUTH TWICE DAILY 60 tablet 5 12/18/2024 ActiveStart: 12-18-2023 End: 64-81-5401nfom 1 tablet by mouth twice dailylisinopril 10 MG tablet Indications: Essential (primary) hypertension (CMS/HCC) TAKE 1 TABLET BY MOUTH TWICE DAILY 60 tablet 5 12/18/2023 04/23/2024 DiscontinuedStart: 45-22-6522cody 1 tablet by mouth twice dailylisinopril 10 MG tablet Indications: Essential (primary) hypertension (CMS/HCC) TAKE 1 TABLET BY MOUTH TWICE DAILY 60 tablet 5 06/20/2023 ActiveStart: 32-59-4812yxjuhuhumj Oral, Daily, Refills(s) 0 Start Date: 03/31/19 Status: Ordered Repeat number: 1Start: 01-51-6624bvgpbjlrpr Oral, Daily, Refills(s) 0 Start Date: 03/31/19 Status: OrderedStart: 83-14-0329ifrr 1 tablet by mouth once dailyLisinopril 10 mg Tablet Active 10 MG PO Daily January 30, 2019 12:00am Complies with drug therapytake 1 tablet by mouth in the morning, then take 1 tablet by mouth at bedtimelisinopriL (PRINIVIL,ZESTRIL) 5 mg tablet Take 1 tablet (5 mg total) by mouth in the morning and 1 tablet (5 mg total) before bedtime. Activetake 1 tablet by mouth every twelve hoursLisinopril 10 MG 1 tablet Orally BID for 30 day(s) Activeloperamide hydrochloride 2 mg oral capsule (20 sources)Opioid AgonistStart: 04-27-2023 End: 40-06-4564auqcdkeqtd 2 mg Cap 2 mg = 1 cap(s), Oral Start Date: 02/04/24 Status: Ordered Repeat number: 1Start: 12-10-2019 End: 27-42-8774gbkb 1 capsule by mouth twice daily as needed for diarrhea Loperamide 2 mg capsule Discontinued 2 MG PO Twice daily as needed for Diarrhea April 27:00am March 27, 2024 9:18ammagnesium oxide 400 mg oral tablet (20 sources)Start: 76-79-5266nyov 1 tablet by mouth once dailymagnesium oxide (Mag-Ox) 400 (240 Mg) MG tablet Indications: Hypomagnesemia TAKE 1 TABLET BY MOUTH DAILY 30 tablet 5 01/15/2025 ActiveStart: 24-33-1818evec 1 tablet by mouth once dailyMagnesium Oxide 400 mg (241.3 mg magnesium) tablet Active 400 MG PO Daily August 09, 2023 1:00am Complies with drug therapyStart: 68-37-9651ayla 1 tablet by mouth once dailymagnesium oxide (Mag-Ox) 400 (240 Mg) MG tablet Indications: Hypomagnesemia TAKE 1 TABLET BY MOUTH DAILY 30 tablet 5 06/20/2023 ActivemetFORMIN (20 sources)BiguanideStart: 94-56-5211cspfmlmnq Oral, Refills(s) 0 Start Date: 03/31/19 Status: OrderedStart: 01-30-2019 End: 56-01-0695boqf 1 tablet by mouth three times dailyMetformin 850 mg Tablet Discontinued 850 MG PO Three times daily January 30, 2019 12:00am 2022 11:34ammethocarbamol 750 mg oral tablet (2 sources)Muscle RelaxantStart: 06-07-2023 End: 53-41-4286kvlvvplbqbwsq (Robaxin) 750 MG tablet Indications: Lumbar spondylosis Take 1 tablet (750 mg) by mouth in the morning and 1 tablet (750 mg) at noon and 1 tablet (750 mg) in the evening and 1 tablet (750 mg) before bedtime. 120 tablet 3 06/07/2023 07/30/2023 Discontinued (Therapy completed)24 hr metoprolol succinate 50 mg extended release oral tablet (20 sources)beta-Adrenergic BlockerStart: 29-97-8436vrbp 1 tablet by mouth once dailymetoprolol succinate XL (Toprol-XL) 50 MG 24 hr tablet Indications: Ventricular premature depolarization TAKE 1 TABLET BY MOUTH DAILY 30 tablet 5 02/09/2025 ActiveStart: 91-06-4196qkww 1 tablet by mouth once dailymetoprolol succinate XL (Toprol-XL) 50 MG 24 hr tablet Indications: Ventricular premature depolarization TAKE 1 TABLET BY MOUTH DAILY 30 tablet 5 08/25/2024 ActiveStart: 09-99-9761eimq 1 tablet by mouth once dailymetoprolol succinate XL (Toprol-XL) 50 MG 24 hr tablet Indications: Ventricular premature depolarization TAKE 1 TABLET BY MOUTH DAILY 30 tablet 5 02/19/2024 ActiveStart: 82-39-4084drwr 1 tablet by mouth once dailymetoprolol succinate XL (Toprol-XL) 50 MG 24 hr tablet Indications: Ventricular premature depolarization TAKE 1 TABLET BY MOUTH DAILY 30 tablet 5 08/13/2023 ActiveStart: 14-69-6345odzt 1 mg by mouth once daily metoprolol 25 mg ER Tab mg tab(s), Oral, Daily, Refills(s) 0 Start Date: 03/31/19 Status: Ordered Repeat number: 1Start: 12-05-0417ctwn 1 capsule by mouth once dailyMetoprolol Succinate 50 mg Capsule,Sprinkle,Er 24hr Active 50 MG PO Daily January 30, 2019 12:00amComplies with drug therapytake 1 tablet by mouth every twenty-four hours in the morningmetoprolol succinate XL (TOPROL-XL) 50 mg 24 hr tablet Take 1 tablet (50 mg total) by mouth in the morning. Active take 1 tablet by mouth once dailymetoprolol succinate XL (TOPROL-XL) 50 mg 24 hr tablet Take 50 mg by mouth daily. 0 Activepotassium chloride 20 meq oral tablet (4 sources)Start: 60-21-5952Spodkumzk Chloride (Eqv-K-Tab) 20 mEq oral tablet, extended release Refills(s) 0 Start Date: 02/12/23 Status: Ordered Repeat number: 1Semaglutide (7 sources)Start: 79-88-6883Nzbzzclmxfr (Ozempic) 0.25 mg or 0.5 mg (2 mg/3 mL) pen injector Active 1 MG SUBCUT every week August 09, 2023 1:00am takes on Sunday Complies with drug therapyStart: 15-79-8734Mpnszbxbiyh (Ozempic) 0.25 mg or 0.5 mg (2 mg/3 mL) pen injector Active 1 MG SUBCUT every week August 09, 2023 12:00am takes on Mondaystart: 92-68-0836Iyjccbaicxu (Ozempic) 0.25 mg or 0.5 mg (2 mg/3 mL) pen injector Active 1 MG SUBCUT every week August 09, 2023 1:00am takes on Mondaystart: 25-42-5016Vurjodmfpmu (Ozempic) 0.25 mg or 0.5 mg (2 mg/3 mL) pen injector Active 0.25 MG SUBCUT every week August 09, 2023 12:00am takes on Mondaysemaglutide (Ozempic, 1 MG/DOSE,) 4 MG/3ML solution pen-injector (20 sources)Start: 10-30-2023 End: 84-80-6234gxouwd 1 mg by subcutaneous injection every weeksemaglutide (Ozempic, 1 MG/DOSE,) 4 MG/3ML solution pen-injector Indications: Type 2 diabetes mellitus with diabetic polyneuropathy, with long-term current use of insulin (HCC) Inject 1 mg under the skin 1 (one) time per week 9 mL 3 10/30/2023 01/28/2025 Discontinued (Dose adjustment)Start: 12-81-6626wtvyus 1 mg by subcutaneous injection every weeksemaglutide (Ozempic, 1 MG/DOSE,) 4 MG/3ML solution pen-injector Indications: Type 2 diabetes mellitus with diabetic polyneuropathy, with long-term current use of insulin (HCC) Inject 1 mg under the skin 1 (one) time per week 9 mL 3 10/30/2023 ActiveStart: 10-30-2023 End: 71-68-1334fszhev 1 mg by subcutaneous injection every weeksemaglutide (Ozempic, 1 MG/DOSE,) 4 MG/3ML solution pen-injector Indications: Type 2 diabetes mellitus with diabetic polyneuropathy, with long-term current use of insulin (CMS/HCC) Inject 1 mg under the skin 1 (one) time per week 9 mL 3 10/30/2023 10/29/2024 ActiveSemaglutide, 2 MG/DOSE, (Ozempic, 2 MG/DOSE,) 8 MG/3ML solution pen-injector (9 sources)Start: 35-92-6040Zuphosoevam, 2 MG/DOSE, (Ozempic, 2 MG/DOSE,) 8 MG/3ML solution pen-injector Indications: Type 2 diabetes mellitus with hyperglycemia, with long-term current use of insulin (HCC) Inject 2 mg under the skin every 7 (seven) days 6 mL 1 01/28/2025 ActiveStart: 01-28-2025 End: 53-90-0240Fhapgdofbqr, 2 MG/DOSE, (Ozempic, 2 MG/DOSE,) 8 MG/3ML solution pen-injector Indications: Type 2 diabetes mellitus with hyperglycemia, with long-term current use of insulin (HCC) Inject 2 mg under the skin every 7 (seven) days 6 mL 1 01/28/2025 04/28/2025 ActiveSemaglutide,0.25 or 0.5MG/DOS, (Ozempic, 0.25 or 0.5 MG/DOSE,) 2 MG/3ML solution pen-injector (4 sources)Start: 57-16-5872Eaieaykxral,0.25 or 0.5MG/DOS, (Ozempic, 0.25 or 0.5 MG/DOSE,) 2 MG/3ML solution pen-injector Indications: Type 2 diabetes mellitus with diabetic polyneuropathy, with long-term current use of insulin(CMS/HCC) Inject 0.5 mg under the skin 1 (one) time per week 9 mL 3 07/30/2023 Active simvastatin 40 mg oral tablet (20 sources)HMG-CoA Reductase InhibitorStart: 34-62-9134nohcinhdals Oral, Refills(s) 0 Start Date: 03/31/19 Status: Ordered Repeat number: 1Start: 24-49-9837mbjqeyehjyn Oral, Refills(s) 0 Start Date: 03/31/19 Status: Ordered Start: 01-30-2019 End: 40-12-4478qjnm 1 tablet by mouth at bedtimesimvastatin (Zocor) 40 MG tablet Indications: Hyperlipidemia, unspecified TAKE 1 TABLET BY MOUTH ATBEDTIME 30 tablet 5 12/18/2024 Activespironolactone 50 mg oral tablet (20 sources)Aldosterone AntagonistStart: 00-32-2548vubj 1 tablet by mouth once dailyspironolactone (Aldactone) 50 MG tablet Indications: Localized edema TAKE 1 TABLET BY MOUTH DAILY 30 tablet 5 12/18/2023 ActiveStart: 04-27-2023 End: 16-64-8121yelv 1 tablet by mouth once dailySpironolactone 50 mg tablet Discontinued 50 MG PO Daily April 27, 2023 1:00am October 30, 2023 1:56pm1 ml tildrakizumab-asmn 100 mg/ml prefilled syringe (20 sources)Interleukin-23 AntagonistStart: 74-05-7814mlnjvdxfidxyh (Ilumya) 100 MG/ML injection Inject under the skin 10/05/2023 ActivetiZANidine 4 mg oral tablet (20 sources)Central alpha-2 Adrenergic AgonistStart: 46-79-2689tvct 1 tablet by mouth three times daily as needed for muscle spasmstiZANidine (Zanaflex) 4 MG tablet Indications: Lumbar spondylosis Take 1 tablet (4 mg) by mouth 3 (three) times a day as needed for muscle spasms 60 tablet 3 05/28/2024 Active triamcinolone acetonide 1 mg/ml topical cream (20 sources)CorticosteroidStart: 64-80-1111ipwfjfzjaprnj (Kenalog) 0.1 % cream 04/17/2024 ActiveStart: 15-98-5094kphmhnqbskjlr (Kenalog) 0.1 % cream APPLY TO THE AFFECTED AREA(S) (PSORIASIS ON TRUNK AND ALL EXTREMITIES) DAILY NEEDED SUNDAY THROUGH SUNDAY DO NOT USE ON FACE) 04/17/2024 Active Completed/Discontinued Medications MedicationDrug Class(es)DatesSig (Normalized)Sig (Original)acetaminophen 325 mg / oxyCODONE hydrochloride 5 mg oral tablet (3 sources)Opioid AgonistStart: 04-24-2024 End: 62-19-4595kntz 1 tablet by mouth every six hours for painoxyCODONE- acetaminophen (Percocet) 5-325 MG tablet Indications: Internal derangement of left shoulder Take 1 tablet by mouth every 6 (six) hours if needed for moderate pain for up to 5 days 20 qqhtoq1404/24/2024 04/29/2024 Cxipdcopfvqxway777798 200 actuat albuterol 0.09 mg/actuat metered dose inhaler (2 sources)beta2-Adrenergic AgonistStart: 12-22-2020 End: 32-31-7198duzr 2 puff(s) by inhalation every four hours as needed for wheezingalbuterol (PROVENTIL HFA;VENTOLIN HFA) 90 mcg/actuation inhaler Indications: Chronic obstructive pulmonary disease, unspecified COPD type (CMS- HCC) Inhale 2 puffs every 4 (four) hours as needed for wheezing. 18 g 11 12/22/2020 08/15/2023 Discontinued (Discontinued by another clinician) clindamycin 300 mg oral capsule (5 sources)Lincosamide AntibacterialStart: 49-48-4577pvex 2 capsules by mouth every twelve hoursClindamycin HCl 300 MG 2 capsules Orally bid for 10 day(s) Jan, Not-Takingdibucaine 0.01 mg/mg rectal ointment (11 sources)Standardized Chemical AllergenStart: 12-08-2020 End: 47-12-8083Ivgrkjvnf 1 % ointment Discontinued 1 APPLIC CA Four times daily as needed for rectal discomfort 56June 2020 12:00am March 14, 2021 12:08pmdocusate sodium 100 mg oral capsule (11 sources)Start: 12-08-2020 End: 32-89-3236edxg 1 capsule by mouth once daily as neededDocusate Sodium (Sof- Lax) 100 mg capsule Discontinued 100 MG PO Daily as needed for hard stool 60 Ju ne 2020 10:33am March 14, 2021 12:08pmfluticasone propionate 0.05 mg/actuat metered dose nasal spray (20 sources)CorticosteroidStart: 02-11-2020 End: 10-76-5549Dgevevdmpob Propionate (Flonase Allergy Relief) 50 mcg/actuation Foss,Suspension Discontinued 1 SPRAY INTRANASAL Daily February 11, 2020 12:00am July 24, 2022 1:24pmStart: 05-79-5328iyoqxnllhes 0.05 mg/inh Nasal Foss Nasal, Daily, Refill(s) 0 Start Date: 07/28/19 Status: OrderedStart: 06-30-2019 End: 06-50-9904rscg 2 spray(s) nasal route once dailyfluticasone propionate (FLONASE) 50 mcg/actuation nasal spray Administer 2 sprays into each nostril daily. 15.8 mL 12 06/30/2019 02/25/2024 Discontinued (Therapy completed)take 1 spray(s) nasal route once dailyFlonase 50 MCG/ACT 1 spray in each nostril Nasally Once a day Not-Takingfurosemide 40 mg oral tablet (15 sources)Loop DiureticStart: 12-18-2022 End: 99-79-4332tkbq 1 tablet by mouth once dailyFurosemide 40 mg tablet Discontinued 40 MG PO Daily April 27, 2023 1:00am October 30, 2023 1:48pm Furosemide ActiveglipiZIDE 10 mg oral tablet (11 sources)SulfonylureaStart: 01-30-2019 End: 59-21-5128wtct 1 tablet by mouth once dailyGlipizide 10 mg Tablet Discontinued 10 MG PO Daily January 30, 2019 12:00am August 18, 2020 12:28pm loratadine 10 mg oral tablet (11 sources)Start: 12-08-2020 End: 21-90-4787wkwl 1 tablet by mouth once daily as neededLoratadine (Claritin) 10 mg Tablet Discontinued 10 MG PO Daily as needed for Allergy Symptoms November 172020 12:00am March 14, 2021 12:08pmMagnesium (11 sources)Start: 01-30-2019 End: 78-27-5831fdue 2 tablets by mouth once dailyMagnesium 200 mg Tablet Discontinued 400 MG PO Daily January 30, 2019 12:00am August 09, 2023 1 2:10pmStart: 01-30-2019 End: 36-01-5537lzpm 2 tablets by mouth once dailyMagnesium 200 mg Tablet Discontinued 400 MG PO Daily January 29, 2019 11:00pm August 09, 2023 1 1:10amStart: 01-30-2019 End: 89-99-8717utji 400 mg by mouth once dailyMagnesium Discontinued 400 MG PO Daily January 30, 2019 12:00am August 09, 2023 12:10pmStart: 01-30-2019 End: 67-54-2404cooc 400 mg by mouth once dailyMagnesium Discontinued 400 MG PO Daily January 29, 2019 11:00pm August 09, 2023 11:10amStart: 50-96-3316vmfn 400 mg by mouth once dailyMagnesium Active 400 MG PO Daily January 29, 2019 11:00pmmupirocin 0.02 mg/mg topical ointment (5 sources)RNA Synthetase Inhibitor AntibacterialMupirocin 2 % 1 application Externally bid for 10 day(s) Not-Takingoxaprozin 600 mg oral tablet (10 sources)Nonsteroidal Anti-inflammatory DrugStart: 04-27-2023 End: 12-83-2115skty 1 tablet by mouth four times dailyOxaprozin 600 mg tablet Discontinued 600 MG PO Four times daily April 27, 2023 1:00am 2023 12:01pmpantoprazole 40 mg delayed release oral tablet (5 sources)Proton Pump InhibitorStart: 31-56-4220sbwc 1 tablet by mouth every twenty-four hoursPantoprazole Sodium 40 MG 1 tablet Orally Once a day for 90 days Jul, Not-Takingpramoxine (5 sources)Start: 27-86-9122Lypqkshgf HCl 1 % 1 application to affected area as needed Externally Three times a day for 30 daysJul, Not-TakingStart: 78-51-2447Nqcqetqyx HCl 1 % 1 application to affected area as needed Externally Three times a day for 30 daysJul, Activepyridostigmine bromide 60 mg oral tablet (11 sources)Start: 01-30-2019 End: 94-65-6783qdrc 1 tablet by mouth three times dailyPyridostigmine [place] 60 mg Tablet Discontinued 60 MG PO Three times daily January 30, 2019 12:00am August 18, 2020 12:30pmsemaglutide 14 mg oral tablet (5 sources)Start: 07-24-2022 End: 88-43-7108lixp 1 tablet by mouth once dailySemaglutide (Rybelsus) 14 mg tablet Discontinued 14 MG PO Daily July 24, 2022 1:00am August 09, 2023 12:01pmSemaglutide (Rybelsus) 14 mg tablet (6 sources)Start: 07-24-2022 End: 78-20-9825uypu 1 tablet by mouth once dailySemaglutide (Rybelsus) 14 mg tablet Discontinued 14 MG PO Daily July 24, 2022 1:00am August 09, 2023 12:01pmStart: 07-24-2022 End: 81-51-6537kiej 1 tablet by mouth once dailySemaglutide (Rybelsus) 14 mg tablet Discontinued 14 MG PO Daily July 24, 2022 12:00am 2023 11:01amsucralfate 1000 mg oral tablet (11 sources)Aluminum ComplexStart: 02-11-2020 End: 11-44-4283hyhq 1 tablet by mouth before mealtimeSucralfate 1 gram Tablet Discontinued 1 GM PO before meals February 11, 2020 12:00am March 14, 2021 12:09pmtamsulosin hydrochloride 0.4 mg oral capsule (13 sources)alpha-Adrenergic BlockerStart: 01-30-2019 End: 14-18-5453ovhk 1 capsule by mouth once dailyTamsulosin 0.4 mg Capsule Discontinued 0.4 MG PO Daily January 30, 2019 12:00am March 14, 2021 12:09pm End: 82-88-8489cfbf 1 capsule by mouth twice dailytamsulosin (FLOMAX) 0.4 mg capsule Take 0.4 mg by mouth 2 (two) times a day. 0 08/15/2023 Discontinued (Discontinued by another clinician)zolpidem tartrate 5 mg oral tablet (5 sources)gamma-Aminobutyric Acid-ergic AgonistStart: 12-06-2023 End: 17-28-5439aflw 1 tablet by mouth once daily as needed for sleepzolpidem (AMBIEN) 5 mg tablet Indications: Obstructive sleep apnea syndrome Take 1 tablet (5 mg total) by mouth nightly as needed for sleep. 1 tablet 12/06/2023 02/25/2024 Discontinued (Therapy completed) Problems Active Problems Problem ClassificationProblemDateDocumented DateEpisodic/ChronicAbdominal pain (4 sources)Indigestion; Translations: [Epigastric pain]62-73-7008UkurtinyRdowo and unspecified renal failure (20 sources)Renal failure syndrome; Translations: [Unspecified kidney failure] Onset: 970041-87-4990FlgixvtFcgkeiy disorders (20 sources)Generalized anxiety disorder; Translations: [Generalized anxiety disorder]Onset: 141147-57-4981RwcbmwcDaxvwsi tract disease (11 sources)Common bile duct calculus; Translations: [Calculus of bile duct without cholangitis or cholecystitis without obstruction]02-01-3262Mxlwrmls Cancer of prostate (20 sources)Malignant neoplasm of prostate; Translations: [Malignant tumor of prostate]Onset: 04-34-0760SeakxriOxomny of prostate (4 sources)Personal history of malignant neoplasm of prostate; Translations: [History of malignant neoplasm ofprostate]Onset: 96-33-3009XajwyienZgttxej kidney disease (4 sources)Chronic kidney disease stage 3B ; Translations: [Stage 3b chronic kidney disease (CMS-HCC)]63-44-7867EgouqzeSmllfzevuq and other anemia (20 sources)Iron deficiency anemia due to blood loss; Translations: [Iron deficiency anemia secondary to blood loss (chronic)]Onset: ChronicDeficiency and other anemia (16 sources)Iron deficiency anemia; Translations: [Iron deficiency anemia, unspecified]14-39-5918AtqfyqzjQbvimpfy mellitus with complications (20 sources)Type 2 diabetes mellitus with hyperglycemia; Translations: [Type 2 diabetes mellitus]Onset: 09-12-2022 Resolved: 79-17-5966QewoehwKpjanszl mellitus without complication (20 sources)Diabetes mellitus; Translations: [Type 2 diabetes mellitus without complication]Onset: 751153-15-3060RlmdlvoUwcxkvay mellitus without complication (6 sources)Glycosuria; Translations: [Glycosuria]Onset: 34-43-5562Qoztefww Disorders of lipid metabolism (20 sources)Hypercholesterolemia; Translations: [Pure hypercholesterolemia, unspecified]Onset: 877871-79-4100DppapazVticetgibn disorders (20 sources)Gastroesophageal reflux disease; Translations: [Gastro-esophageal reflux disease without esophagitis]Onset: 196811-30-9609WcylyixCnhxzhsbxs disorders (1 source)Esophageal disorders; Translations: [Gastro-esophageal reflux disease without esophagitis]Onset: 97-82-5708Tijmkdtve hypertension (20 sources)Hypertensive disorder; Translations: [Benign essential hypertension] Onset: 154488-08-0832SkrfyfpQvtnnfjylne (7 sources)Hemorrhoids; Translations: [Unspecified hemorrhoids]Episodic Hyperplasia of prostate (20 sources)Benign prostatic hypertrophy with outflow obstruction; Translations: [Benign prostatic hyperplasia with lower urinary tract symptoms]Onset: 70-51-7124DpjycjkXbbwuvm and fatigue (20 sources)Fatigue; Translations: [Chronic fatigue, unspecified]Onset: 638179-85-5129TwvvfqpKtmgtdhowxurqi (20 sources)Arthritis of left knee; Translations: [Unilateral primary osteoarthritis, left knee]Onset: 928757-28-4056EnhmachTcmyt aftercare (1 source)Other long chain quiller tender (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 therapy; Translations: [OTH SNF CURRENT DRUG THERAPY]Onset: 36-59-0030IqdnqfneWpeyv aftercare (6 sources)Patient encounter status; Translations: [Other halfway (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 therapy]Onset: 081458-95-3878AnskwqonWpkhb and unspecified benign neoplasm (5 sources)History of polyp of colon; Translations: [Personal history of colonic polyps]EpisodicOther bone disease and musculoskeletal deformities (20 sources)Posterior calcaneal exostosis; Translations: [Juvenile osteochondrosis of tarsus, right ankle]Onset: 637916-24-5628JqpgpqdFjqhx connective tissue disease (2 sources)Pain in left foot; Translations: [Pain in left foot]05-29-2024 EpisodicOther connective tissue disease (2 sources)Calcific tendinitis of right achilles tendon; Translations: [Achilles tendinitis, right leg]60-12-0308XicffpkcNojdp diseases of kidney and ureters (1 source)Urinary tract obstruction; Translations: [Other obstructive and reflux uropathy]Onset: 67-82-3607VvwfmqqzDpolb ear and sense organ disorders (20 sources)Chronic right myringitis; Translations: [Chronic myringitis, right ear]Onset: 403043-68-9133QnmtlfbCpuba gastrointestinal disorders (6 sources)Irritable bowel syndrome with diarrhea; Translations: [Irritable bowel syndrome with diarrhea]13-00-3281LyghfddHsdro gastrointestinal disorders (3 sources)Irritable bowel syndrome; Translations: [Irritable bowel syndrome without diarrhea]42-16-2436IrtvhdtTxtpw gastrointestinal disorders (2 sources)Irritable bowel syndrome without diarrhea; Translations: [Irritable bowel syndrome]86-25-8634SwlusvcUekva gastrointestinal disorders (11 sources)Acquired arteriovenous malformation; Translations: [Angiodysplasia of colon with hemorrhage]14-98-5207FsdmkihoTulyr gastrointestinal disorders (16 sources)Dysphagia; Translations: [Dysphagia, unspecified]82-19-7882Uiwwvovf Other gastrointestinal disorders (16 sources)Diarrhea; Translations: [Diarrhea, unspecified]68-23-7667Btpfewpk Other gastrointestinal disorders (5 sources)Esophageal dysphagia; Translations: [Dysphagia, unspecified]Episodic Other gastrointestinal disorders (7 sources)Diarrhea, unspecified; Translations: [Diarrhea]Onset: 09-14-2022 EpisodicOther gastrointestinal disorders (1 source)Dysphagia, unspecifiedEpisodicOther gastrointestinal disorders (2 sources)Other specified symptoms and signs involving the digestive system and abdomen; Translations: [Otherspecified symptoms and signs involving the digestive system and abdomen]Onset: 80-31-9748CnewtabgKgrrt gastrointestinal disorders (5 sources)Constipation alternates with diarrhea; Translations: [Other specified symptoms and signs involving the digestive system and abdomen]04-15-2024 EpisodicOther lower respiratory disease (3 sources)Dyspnea; Translations: [Shortness of breath]33-54-0640CsiddhdyBpape lower respiratory disease (3 sources)Shortness of breath; Translations: [Shortness of breath]Onset: 77-70-8030PuxrsiveSbqnr lower respiratory disease (1 source)Shortness of breathOnset: 87-63-1367ZixgwqneTalxf nervous system disorders (20 sources)Difficulty walking; Translations: [Difficulty in walking, not elsewhere classified]Onset: 969881-97-6624KvittbgPbggw nervous system disorders (20 sources)Bilateral carpal tunnel syndrome; Translations: [Carpal tunnel syndrome, bilateral upper limbs]Onset: 077709-25-2788YywdrvgHptfa non- traumatic joint disorders (4 sources)Derangement of left shoulder joint; Translations: [Other specific joint derangements of left shoulder, not elsewhere classified]29-14-6957Kxguuxs Other non-traumatic joint disorders (13 sources)Pain in left shoulder; Translations: [Pain in joint, shoulder region]03-59-9277FsfvoxroGnihk non-traumatic joint disorders (2 sources)Pain in right knee; Translations: [Pain in joint, lower leg] 05-07-7421SdcbbfiwVfche nutritional; endocrine; and metabolic disorders (20 sources)Body mass index 30+ - obesity; Translations: [Body mass index (BMI) 31.0-31.9, adult]Onset: 786765-45-4550QvzynxyLkpao nutritional; endocrine; and metabolic disorders (20 sources)Severe obesity; Translations: [Morbid (severe) obesity due to excess calories]Onset: 12-04-2022 Resolved: 389556-94-9108GkiccaxBnoky screening for suspected conditions (not mental disorders or infectious disease) (11 sources)Raised prostate specific antigen; Translations: [Elevated prostate specific antigen [PSA]]Onset: 158048-35-9408CcigkutjVbaqa upper respiratory disease (20 sources)Allergic rhinitis; Translations: [Allergic rhinitis, unspecified] Onset: 403501-53-6641ZannkknYvscv upper respiratory disease (20 sources)Rhinitis medicamentosa; Translations: [Chronic rhinitis]Onset: 428940-72-8563WvnjcojVuygepjk codes; unclassified (3 sources)Obstructive sleep apnea (adult) (pediatric); Translations: [Obstructive sleep apnea (adult) (pediatric)]Onset: 86-81-4356GrbsiqsPrncrnoh codes; unclassified (1 source)Primary central sleep apnea; 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]Onset: 15-49-2790YkrjrojKbczlzxb codes; unclassified (20 sources)Obstructive sleep apnea syndrome; Translations: [Obstructive sleep apnea (adult) (pediatric)]Onset: 322969-56-0435DwooilsJltkcccw codes; unclassified (20 sources)Hypersomnia; Translations: [Hypersomnia, unspecified]Onset: 491979-46-1053IlrdjhqRyyqjlbn codes; unclassified (2 sources)Central sleep apnea syndrome; 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]00-99-6971JmmgypuUvqrpodd codes; unclassified (1 source)Sleep apneaOnset: 01-82-8962JnqizelZavjhdjf codes; unclassified (1 source)Other specified postprocedural states; Translations: [Other postprocedural status]24-46-7964XykzdcytFhprgzdm codes; unclassified (20 sources)History of arthroscopic procedure on shoulder; Translations: [Other specified postprocedural states]51-87-4338YyrzfrrcOoujcajmm and history of mental health and substance abuse codes (6 sources)Tobacco use and exposure - finding; Translations: [Personal history of nicotine dependence]Onset: 949833-18-5841RsqcnctxNvryfhjzxzj; intervertebral disc disorders; other back problems (20 sources)Lumbar spondylosis; Translations: [Spondylosis without myelopathy or radiculopathy, lumbar region]Onset: 221050-39-0324ObfxnzpRbgavrxnvmi injury; contusion (2 sources)Contusion of left foot; Translations: [Contusion of left foot, initial encounter]97-20-6154Crrjueee Past or Other Problems Problem ClassificationProblemDateDocumented DateEpisodic/ChronicAcquired foot deformities (20 sources)Right foot drop; Translations: [Foot drop, right foot]Onset: 411096-45-0453IrygtmmoRuehrooqol associated with dizziness or vertigo (20 sources)Lightheadedness; Translations: [Dizziness and giddiness]Onset: 292142-66-3405JrgjbvocJufhljttla and other anemia (20 sources)Anemia; Translations: [Anemia, unspecified]Onset: 12-04-2022 48-58-6415QrhbcseuKqqjttxazvzfk symptoms and ill-defined conditions (20 sources)Nocturia; Translations: [Proteinuria]Onset: EpisodicHeadache; including migraine (20 sources)Migraine; Translations: [Migraine, unspecified, not intractable, without status migrainosus]Onset: 12-04-2022 Resolved: 492555-72-6658VaivekbBiujkiz and fatigue (20 sources)Fatigue; Translations: [Other fatigue]Onset: EpisodicMood disorders (19 sources)Mood disordersOnset: Nausea and vomiting (1 source)Vomiting, unspecified; Translations: [Vomiting, unspecified]Onset: 92-82-3313DqzyweixEilao aftercare (20 sources)Long-term current use of insulin; Translations: [group home (current) use of insulin]Onset: 664224-70-2081PkwqkjcbNiazw aftercare (20 sources)Long-term current use of drug therapy; Translations: [Other halfway (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 therapy]Onset: 438791-94-9881XewfcldrWnbjw circulatory disease (20 sources)Orthostatic hypotension; Translations: [Orthostatic hypotension] Onset: 161476-54-7607GjerkzztNciue connective tissue disease (4 sources)Pain in right foot; Translations: [PAIN IN RIGHT FOOT]Onset: 82-37-9103BvfysihfBvloy connective tissue disease (20 sources)Full thickness rotator cuff tear; Translations: [Complete rotator cuff tear or rupture of right shoulder, not specified as traumatic]Onset: 169174-66-5876KmunjmabVleoo connective tissue disease (20 sources)Pain in right hand; Translations: [Pain in right hand]Onset: 506059-91-9228GdmbslmeGrrso ear and sense organ disorders (20 sources)Bilateral hearing loss; Translations: [Unspecified hearing loss, bilateral]Onset: 12-04-2022 Resolved: 556449-82-8722MwforgqXjvxf nervous system disorders (20 sources)Carpal tunnel syndrome; Translations: [Carpal tunnel syndrome, unspecified upper limb]Onset: 12-04-2022 Resolved: 184460-67-1703KtusjoeKclts nervous system disorders (20 sources)Muscle fasciculation; Translations: [Fasciculation]Onset: 10-04-2023 19-17-8257FrsbkwhyDzzabp media and related conditions (20 sources)Dysfunction of right eustachian tube; Translations: [Unspecified Eustachian tube disorder, right ear]Onset: 965957-68-1044OxfsfpctUfmntdrl codes; unclassified (20 sources)Bilateral lower limb edema; Translations: [Localized edema]Onset: 724064-41-5294VqmpgnmuTyjvrklo codes; unclassified (20 sources)Memory impairment; Translations: [Other amnesia]Onset: 10-04-2023 76-07-8969VhvablyhHcvixnnh codes; unclassified (20 sources)Family history of Parkinson's disease; Translations: [Family history of epilepsy and other diseasesof the nervous system]Onset: EpisodicSpondylosis; intervertebral disc disorders; other back problems (20 sources)Lumbar radiculopathy; Translations: [Radiculopathy, lumbar region] Onset: 237701-97-5474ItluscmyPiidoekke-qvkmudp disorders (20 sources)Cigarette smoker ; Translations: [Nicotine dependence, cigarettes, uncomplicated]Onset: 12-04-2022 Resolved: 160931-00-7859Fcekitb Results Test NameValueInterpretationReference RangeFacilityGlucose (Bld) [Mass/Vol] Ordered By: Natalia Salguero on 07-19-9891Ldcwbwk Blood, RCP048 mg/dLUniversity Health [facility] CenterLaboratory - Hematology and Cell countson 31-04-4713WqR5x (Bld) [Mass fraction]8.3 %[facility] CenterNo Panel InformationOrdered By: Natalia Salguero on 65-05-1259RVXH HealthcareXR Knee - right 1 or 2 Viewson 13-27-2563Nqnzdfp Result: AP and Lateral weight bearing: Bones: The bony structures of the knee, including the distal femur, proximal tibia, and patella, appear normal. Stable alignment. There are no fractures, dislocations, or bony lesions noted calcification and prominent enthesophyte into quad tendon insertion proximal pole of patella. Joint Spaces: The joint spaces noted for narrowing medial joint line. Soft Tissues: Mild effusion Impression: No acute bony process, moderate tricompartmental arthritic changes greatest to medial and patella femoral joint line.Count includes the [facility] Radiology Study observation (narrative)[facility] Medical CenterTestost Totalon 02-11-2025 Testoster Tot58 ng/gKHbg739-117WpqqxkCleveland Clinic Akron GeneralComment on above: Result Comment: Adult male reference interval is based on a population of healthy nonobese males (BMI <30) between 19 and 39 years old. Jitendra, et.al. JCEM 2017,102;3189-8348. PMID: 78750029. Performed at: [facility] [address] [id number] PhD Lolis SharmaPerformed By: #### [id number] #### [facility] [address], [place] [address]Mankojhfea Visit Summaryon 81-20-9161Ftpmpvfnkl Visit Summary Ambulatory Visit Summary MILAD SEYMOUR :1955 Visit Date:02/09/2025 Ambulatory Visit Instructions Your Diagnosis Personal history of prostate cancer Enlarged prostate with urinary obstruction Glucosuria Low energy Your Care Team Attending Physician - Peterson PETERSEN MD Primary Care Physician - DANK CAMPO MD This Is Your Medications List Contact prescribing physician if questions or concerns aspirin (aspirin 81 mg Oral EC Tab) celecoxib cyclobenzaprine (cyclobenzaprine 10 mg Tab) empagliflozin (Jardiance 25 mg oral tablet) fluoxetine (FLUoxetine 20 mg Cap) fluticasone nasal (fluticasone 0.05 mg/inh Nasal Foss) gabapentin (gabapentin 300 mg Cap) insulin lispro (Insulin Lispro KwikPen 100 units/mL [...] repair of rotator cuff, Tonsillectomy. Discharge Vitals Temperature (Temporal Artery) 37 ???C Heart Rate (Peripheral) 78 Respiratory Rate 16 Blood Pressure 119/69 Height 177 cm Height 70 in Weight 116 kg Weight 255.736 lb BMI 37.03 What to do next Scheduled Follow-Up Appointments Sunday2025 8:30 AM EDT With: Where: [facility] [address] [id number]- Sunday2025 8:30 AM EDT With: Peterson PETERSEN MD Where: [facility] [place] [address] [place] [address]- You Need to Schedule the Following Appointments Follow Up with Peterson PETERSEN MD, URL When: Where: [address] [place] [phone] Medications What How Much When Instructions Unchanged aspirin (aspirin 81 mg Oral EC Tab) By Mouth Every day Contact prescribing physician if questions or concerns Unchanged celecoxib By Mouth Contact prescribing physician if questions or concerns Unchanged cyclobenzaprine (cyclobenzaprine 10 mg Tab) 1 Tablets By Mouth 3 times a day as needed for for spasm Contact prescribing physician if questions or concerns Unchanged empagliflozin (Jardiance 25 mg oral tablet) 1 Tablets Contact prescribing physician if questions or concerns Unchanged fluoxetine (FLUoxetine 20 mg Cap) 1 Capsules By Mouth Contact prescribing physician if questions or concerns Unchanged fluticasone nasal (fluticasone 0.05 mg/ inh Nasal Foss) Nasal Inhalation Every day Contact prescribing physician if questions or concerns Unchanged gabapentin (gabapentin 300 mg Cap) 1 Capsules Contact prescribing physician if questions or concerns [...] obstruction Frequency of urination Glucosuria Hypercholesteremia Hypertension Low energy Migraine headache Nocturia Personal history of prostate [...] choosing us for your care. Education Materials Fatigue If you have fatigue, you feel tired all the time and have a lack of energy or a lack of motivation.Fatigue may make it difficult to start or complete tasks (more content not included)...[facility] HospitalUrology Office/Clinic Noteon 33-37-9311Ybnryem Office/Clinic NoteUrology Office/Clinic Note Chief Complaint 1 year with PSA HPI Staff 69 year old male patient presents today for a year follow up with PSA. DX: Prostate Cancer & BPH *S/P ERBT 01/16/20 PSA 02/06/23- 0.4 01/28/24 - 0.14 02/03/25 - 0.14 IPSS score today is 1. Denies all urinary complaints at this time. History of Present Illness [...] See HPI. Physical Exam Vitals & Measurements T: 37 ???C(Temporal Artery) HR: 78(Peripheral) RR: 16 BP: 119/69 HT: 70 in HT: 177 cm WT: 116 kg WT: 255.736 lb BMI: 37.03 General Appearance: alert, no distress, well nourished, well developed male. Assessment/Plan 1. Personal history of prostate cancer (Z85.46: Personal history of malignant neoplasm of prostate) PSA 08/04/21- 0.26 01/27/22- 0.1 & 30% 11/28/22 - 0.5 02/06/23 - 0.4 01/28/24 - 0.14 02/03/25 - 0.14 TRUS/bx 08/2018 - Rosalina 6 (3+3) x2 and one suspicious. TRUS/bx 09/23/19 - Rosalina 6 (3+3) x3, 26% involved with DOLORES and HGPIN x1. Genetic testing 10/07/19 - favorable intermediate DSM risk. S/p EBRT 01/16/20. PSA remains stable. Will cont to monitor. -F/u in 1 yr w/ PSA 2. Enlarged prostate with urinary obstruction (N40.1: Benign prostatic hyperplasia with lower urinary tract symptoms) UA neg. IPSS 1. No BPH meds. No bother with urination. 3. Glucosuria (R81: Glycosuria) UA shows 500 mg/dL glucose. Reports joint pain and uncontrolled DM. Recommended pt to exercise, particularly lap swimming as it is minimal impact on joints. -Tight DM control, cont following with PCP -Heart healthy diet, exercise 4. Low energy (R53.83: Other fatigue) Reports fatigue. Inquired about low T. Offered to check level to determine if hypogonadism is contributing to low energy levels. Advised pt regular exercise may also improve energy. Pt wishes to proceed with hypogonadism workup. -Testosterone level to be drawn IO today. Will call pt with results. -Heart healthy diet, exercise Follow-up With When Contact Information NICOLA RAYMUNDO, Peterson Owens, URL [address] [place] [address] Additional Instructions: 1 yr w/ PSA Patient Education Fatigue I, Johana Reeves, personally scribed for Dr. Petersen on 02/09/2025 09:27:38. . Documentation recorded by the scribeJohana, accurately reflects the services(s) I performed and decisions made by me. Authenticated by Dr. Petersen on 02/09/2025 09:30:50. Problem List/Past Medical History Ongoing Anemia Cigarette smoker Diabetes Enlarged prostate with urinary obstruction Frequency of urination Glucosuria Hypercholesteremia Hypertension Low energy Migraine headache Nocturia Personal history of prostate cancer Proteinuria Historical Elevated PSA Procedure/Surgical History Laparoscopic cholecystectomy (03/2021), Radiation (01/16/2020), Transrectal biopsy of prostate using ultrasound (US) guidance (09/23/2019), Transrectal biopsy of prostate using ultrasound (US) guidance (09/03/2018), Appendectomy, Colonoscopy, Partial repair of rotator cuff, Tonsillectomy. Medications aspirin 81 mg Oral EC Tab, Oral, Daily celecoxib, Oral cyclobenzaprine 10 mg Tab, 10 mg= 1 tab(s), Oral, TID, PRN FLUoxetine 20 mg Cap, 20 mg= 1 cap(s), Oral fluticasone 0.05 mg/inh Nasal Foss, Nasal, Daily gabapentin 300 mg Cap, 300 mg= 1 cap(s) Ilumya 100 mg/mL subcutaneous solution, SubCutaneous, q3mo Insulin Lispro KwikPen 100 units/mL injectable solution Jardiance 25 mg oral tablet, 25 mg= 1 tab(s) lansoprazole, Oral, Daily lisinopril, Oral, Daily loperamide 2 mg Cap, 2 mg= 1 cap(s), Oral metoprolol 25 mg ER Tab, Oral, Daily Potassium Chloride (Eqv-K-Tab) 20 mEq oral tablet, extended release simvastatin, Oral Allergies No Known Medication Allergies Social History Alcohol - Denies Alcohol Use, 03/31/2019 Tobacco Former smoker, quit more than 30 days ago Tobacco Use:. Never Smokeless Tobacco Use:. Cigarettes, Yes, 02/09/2025 Former smoker, quit more than 30 days ago Tobacco Use:., 02/08/2025 Family History Diabetes: Mother and Father. Heart disease: Father. Hypertension: Mother and Father. Stroke: Mother and Father. Immunizati (more content not included)...[facility] Comment on above:Result Comment: Electronically Signed By: Peterson PETERSEN MD\.br\Date and Time Signed: 02/09/25 09:30 EDT\.br\Electronically Co-Signed By: Johana Reeves\.br\Date and Time Co-Signed: 02/09/25 09:28 EDTALL LIPID PROFILE (FASTING)on 57-52-4134URWB HDL RATIO4.9NOMS HealthcareComment on above:3.3 - 4.4 LOW RISK 4.4 - 7.1 AVERAGE RISK 7.1 - 11.0 MODERATE RISK >11.0 HIGH RISK Cholesterol [Mass/Vol]171 mg/dLNINF - 200 mg/dLNOMS HealthcareCholesterol in HDL [Mass/Vol]35 mg/dLLow40 - 60 mg/dLNOMS HealthcareComment on above:> or =60 mg/dl - LOW CARDIOVASCULAR RISK <40 mg/dl - HIGH CARDIOVASCULAR RISK Magnesium [Mass/Vol]99 mg/dLNOMS HealthcareComment on above:<100 mg/dl OPTIMAL 100-129 mg/dl NEAR OR ABOVE OPTIMAL 130-159 mg/dl BORDERLINE HIGH 160-189 mg/dl HIGH >190 mg/dl VERY HIGH Magnesium [Mass/Vol]37.6 mg/dLNONC HealthcareTriglyceride [Mass/Vol]188 mg/dL HighNINF - 150 mg/dLNONC HealthcareALL RENAL FUNCTION PANELon 90-66-0348Xblxnct [Mass/Vol]3.9 g/dL3.4 - 5.0 g/dLNONC HealthcareAnion gap [Moles/Vol]15.3 mmol/L NOMS HealthcareCalcium [Mass/Vol]9.1 mg/dL8.5 - 10.1 mg/dLNOMissouri Delta Medical Center Chloride [Moles/Vol]102 mmol/L98 - 107 mmol/LNOMS HealthcareCO2 [Moles/Vol]24.3 mmol/L21.0 - 32.0 mmol/LNOMS HealthcareCreatinine [Mass/Vol]1.17 mg/dL0.70 - 1.30 mg/dLNONC HealthcareGFR/1.73 sq M.predicted CKD-EPI (S/P/Bld) [Vol rate/Area]>60>=60 mL/min/1.73m 2[facility] HealthcareGlucose [Mass/Vol]183 mg/qHMopo30 - 106 mg/dLNONC HealthcarePhosphate [Mass/Vol]3.2 mg/dL2.6 - 4.7 mg/dLNONC HealthcarePotassium [Moles/Vol]4.6 mmol/L3.5 - 5.1 mmol/LNHILLCREST HOSPITAL [facility] [place] HealthcareSodium [Moles/Vol]137 mmol/L136 - 145 mmol/LNHILLCREST HOSPITAL [facility] [place] HealthcareTB EGFR-NON AF NEPALESE>60 >=60 mL/min/1.73m 2NOMS HealthcareUrea nitrogen [Mass/Vol]19 mg/dLHigh7.0 - 18.0 mg/dLNOMissouri Delta Medical CenterUrea nitrogen/Creatinine [Mass ratio]16.2 mg/mgNOMissouri Delta Medical CenterNo Panel Informationon 86-39-8091Csubzifrhamajz and review of laboratory resultsAbnormalNOMissouri Delta Medical CenterCLINISYNCNPemiscot Memorial Health SystemsTB MICROALB CREAT RATIO RANDOMon 15-64-1261WSPPWMMICK URINE CYPAJX927.25 mg/dL20.00 - 300.00 mg/dLUniversity Health Lakewood Medical CenterMICROALBUM CREATININE RATIO UR19.3 mg/g0.0 - 29.9 mg/gNOMS HealthcareComment on above:NO MICROALBUMINURIA 0-29 MG/G CLINICAL MICROALBUMINURIA 30-300 MG/G MACROALBUMINURIA >300 MG/G MICROALBUMIN URINE RANDOM2.1 mg/dLNINF - 30.0 mg/dLTHE [facility] HealthcareGlucose (Bld) [Mass/Vol]Ordered By: Natalia Salguero on 15-42-0045Nxthlqe Blood, LVW794 mg/dLUniversity Health Lakewood Medical CenterLaboratory - Hematology and Cell countson 19-60-2346GmB8p (Bld) [Mass fraction]9.7 %[facility] Medical CenterNo Panel InformationOrdered By: Natalia Salguero on 06-15-6716AISZ HealthcareXR CHEST 2 VWSon 15-77-1016HW CHEST 2 VWSXR CHEST 2 VWS CHEST 2 VIEWS HISTORY: Shortness of breath COMPARISON: 05/21/2019 FINDINGS: No focal airspace disease, pulmonary edema, pleural effusions, or pneumothorax. Normal cardiomediastinal silhouette. IMPRESSION: No acute cardiopulmonary disease. Finalized by Abelardo Andres MD on 10/27/2024 10:24 AMNormalProWilson Memorial Hospitalca Uk[facility] Medical CenterHbA1c (Bld) [Mass fraction]on 63-32-8013Oirdgijequobzs and review of laboratory resultsAbnormalSac-Osage Hospital HealthcareLaboratory - Hematology and Cell countson 65-88-6041WvL4p (Bld) [Mass fraction]9.4 %[facility] Medical CenterX-ray reportOrdered By: Osvaldo Mckeon on 84-15-8150Pblgt reportMOUNT ST. [place] [address] XRay Report Signed Patient: Milad Seymour MR#: [id number] : 1955 Acct:[id number] Age/Sex: 68 / M ADM Date: 5 Loc: XD Room: Type: [facility] Attending Dr: Rich Alvares APRN Copies [...] 11:41 PM Dictation Location: RADIO-PC-29 Transcribed By: WOODY 07/30/242340 Dictated By: Osvaldo Mckeon MD 07/30/242337 Signed By: 07/30/24 [facility] Work Phone: XR KUBon 04-01-8275[facility] [place] [address] XRay Report Signed Patient: Milad Seymour MR#: [id number] : 1955 Acct:[id number] Age/Sex: 68 / M ADM Date: 07/30/24 Loc: XD Room: Type: [facility] Attending Dr: Rich Alvares APRN Copies [...] 11:41 PM Dictation Location: RADIO-PC-29 Transcribed By: WOODY 07/30/242340 Dictated By: Osvaldo Mckeon MD 07/30/242337 Signed By: 07/30/24 [facility] HospitalCampbellton-Graceville Hospital Physician GroupXR Knee - bilateral 4 Viewson 83-81-0413[address] [address] XRay Report Signed Patient: MILAD SEYMOUR MR#: [id number] : 1955 Acct:[id number] Age/Sex: 68 / M ADM Date: 07/03/24 Loc: RAD Attending Dr: Gladis Vu NP Ordering Physician: Gladis Vu NP Date of Service: 07/03/24 Procedure(s): XR knee KUSUM 4V Accession Number(s): [id number] cc: Gladis Vu NP; Dank Campo M.D. [facility] [place] [address] Patient Name: MILAD SEYMOUR MRN: [id number] date: 1955 Sex: M Assigned Patient Location: [facility] Current Patient Location: [facility] Accession/Order Number: [id number] Exam Date: 07/03/2024 09:39 Report Date: 07/03/2024 10:40 At the request of: GLADIS VU Procedure: XR knee KUSUM 4V EXAMINATION: XR [...] bilateral tricompartmental arthritis Electronically authenticated by: SORIN CAMARGO Date: 07/03/2024 10:40 Dictated By: Sorin Camargo M.D. Signed By: 07/03/24 1042 DD/ 1040 TD/TT: Sales Mgr:BRENDANadiologyunier, Radiologist, - 07/03/2024 [place] [address] XRay Report Signed Patient: MILAD SEYMOUR MR#: [id number] : 1955 Acct:[id number] Age/Sex: 68 / M ADM Date: 07/03/24 Loc: RAD Attending Dr: Gladis Vu NP Ordering Physician: Gladis Vu NP Date of Service: 07/03/24 Procedure(s): XR knee KUSUM 4V Accession Number(s): [id number] cc: Gladis Vu NP; Dank Campo M.D. [place] [id number] Patient Name: MILAD SEYMOUR MRN: [id number] date: 1955 Sex: M Assigned Patient Location: [facility] Current Patient Location: [facility] Accession/Order Number: [id number] Exam Date: 07/03/2024 09:39 Report Date: 07/03/2024 10:40 At the request of: GLADIS VU Procedure: XR knee KUSUM 4V EXAMINATION: XR [...] bilateral tricompartmental arthritis Electronically authenticated by: SORIN CAMARGO Date: 07/03/2024 10:40 Dictated By: Sorin Camargo M.D. Signed By: 07/03/24 1042 DD/ 1040 TD/TT: Sales Mgr: DARNELL HealthcareRadiology Study observation (narrative)NOMS HealthcareXR Knee - bilateral 4 ViewsOrdered By: Radiologist Radiology on 65-17-6659GUC[facility] Healthcare Work Phone: XR LUMBAR SPINE 2 OR 3Von 19-21-9403[place] [address] XRay Report Signed Patient: MILAD SEYMOUR MR#: [id number] : 1955 Acct:[id number] Age/Sex: 67 / M ADM Date: 04/16/23 Loc: RAD Attending Dr: Dank Campo M.D. Ordering Physician: Dank Campo M.D. Date of Service: 04/16/23 Procedure(s): XR lumbar spine 2-3V Accession Number(s): [id number] cc: Dank Campo M.D. [facility] [place] [address] Patient Name: MIALD SEYMOUR MRN: [id number] date: 1955 Sex: M Assigned Patient Location: [facility] Current Patient Location: Accession/Order Number: [id number] Exam Date: 04/16/2023 11:53 Report Date: 04/16/2023 [...] By: Jair Serrato M.D. Signed By: 06/06/24 1451 DD/ 1251 TD/TT: Sales Mgr:TBHRadiology, Radiologist, MD - 06/06/2024 [place] [address] XRay Report Signed Patient: MILAD SEYMOUR MR#: [id number] : 1955 Acct:[id number] Age/Sex: 67 / M ADM Date: 04/16/23 Loc: RAD Attending Dr: Dank Campo M.D. Ordering Physician: Dank Campo M.D. Date of Service: 04/16/23 Procedure(s): XR lumbar spine 2-3V Accession Number(s): [id number] cc: Dank Campo M.D. [place] [id number] Patient Name: MILAD SEYMOUR MRN: [id number] date: 1955 Sex: M Assigned Patient Location: RAD Current Patient Location: PM Accession/Order Number: [id number] Exam Date: 04/16/2023 11:53 Report Date: 04/16/2023 [...] By: Jair Serrato M.D. Signed By: 06/06/24 1451 DD/ 1251 TD/TT: Sales Mgr: DARNELL Knutson LUMBAR SPINE 2 OR 3VOrdered By: Radiologist Radiology on 95-32-2139YPZGUniversity Health Lakewood Medical Center Work Phone: XR Foot - left 3 Viewson 70-30-0108Rffheng Result: 3 views left foot: Weight-bearing: DP, oblique, lateral: 05/29/2024: Unremarkable for fracture or stress fracture changes. Unremarkable for acute osseous or joint pathology. Incidental findings include os peroneum within the cuboid groove; enthesophyte formation at the 5th metatarsal styloid.Count includes the [facility] HospitalRadiology Study observation (narrative)[facility] Medical CenterHbA1c (Bld) [Mass fraction]on 04-29-2024 Interpretation and review of laboratory resultsNormalCount includes the [facility] HospitalLaboratory - Hematology and Cell countson 34-87-2256DoJ8y (Bld) [Mass fraction]7.9 %[facility] HealthcareALL CBC WITH AUTO DIFFon 52-62-0711CQTNBYCRL ABSOLUTE AUTO0.1NOMS HealthcareBasophils/100 WBC (Bld)0.6 %0.2 - 2.0 %NOMS HealthcareEosinophils/100 WBC (Bld)1.8 %0.9 - 7.0 %NOM HealthcareErythrocyte distribution width (RBC) [Ratio]12.8 %11.0 - 15.0 %NOMS HealthcareHematocrit (Bld) [Volume fraction]40.7 %Low42.0 - 54.0 %NOM HealthcareHemoglobin (Bld) [Mass/Vol]13.6 g/dLLow14.0 - 18.0 g/dLTHE ORTHOPEDIC SPECIALTY [facility]OSPITAL HealthcareIMMATURE GRANULOCYTES ABS AUTO0.1HighNONC HealthcareImmature granulocytes/100 WBC (Bld)1.2 %High0.0 - 0.5 %[facility] HealthcareInterpretation and review of laboratory resultsAbnormalNONC HealthcareLYMPHOCYTES ABSOLUTE DOXH9GEUH HealthcareLymphocytes/100 WBC (Bld)24.2 %20.5 - 60.0 %[facility] Medical CenterMCH (RBC) [Entitic mass]30.6 pg25.9 - 34.0 pgNOMissouri Delta Medical CenterMCHC (RBC) [Mass/Vol]33.4 g/dL29.9 - 35.2 g/dLUniversity Health Lakewood Medical CenterMCV (RBC) [Entitic vol]91.7 fL80.0 - 94.0 fLUniversity Health Lakewood Medical CenterMONOCYTES ABSOLUTE AUTO0.5NOMS HealthcareMonocytes/100 WBC (Bld)6.3 %1.7 - 12.0 %NOMS HealthcareNEUTROPHILS ABSOLUTE AUTO5.4NOMS HealthcareNeutrophils/100 WBC (Bld)65.9 %43.0 - 75.0 %[facility] Medical CenterPlatelet mean volume (Bld) [Entitic vol]9 fLLow9.5 - 13.5 fLNOMissouri Delta Medical CenterTBH EO #0.2NOMS HealthcareTB CGF717FvpYZGE [facility], BeachwoodTB RBC4.44Low NOMS HealthcareTB WBC8.2NOMS HealthcareCLINISYNCNOMS HealthcareBASIC METABOLIC PANLon 11-32-2288Iuald gap [Moles/Vol]9 mmol/LNormal5-15ProTexas Health Southwest Fort WorthComment on above:Performed By: #### SHELLY KENNEDY, BMP #### [facility] ([id number]) [address], [address] [place] [address]Ixlyxbt [Mass/Vol]9.7 mg/dLNormal8.5-10.5PUniversity Hospitals Ahuja Medical CenterComment on above:Performed By: #### SHELLY KENNEDY, BMP #### [facility] ([id number]) [address], [address] [place], [place] [address]Qxeupblv [Moles/Vol]99 mmol/XYwbfzv97-111HjmVdkburTexas Health Southwest Fort WorthComment on above:Performed By: #### SHELLY KENNEDY, BMP #### [facility] ([id number]) [address], [address] [place], [place] [address]FO6 [Moles/Vol]23 mmol/RLjzlyc91-99KovTirxrmUniversity Hospitals Ahuja Medical Center Comment on above:Performed By: #### SHELLY KENNEDY, BMP #### [facility] ([id number]) [address], [address] [place], [place] [address]Ppmggewoce [Mass/Vol]1.60 mg/dLHigh0.60-1.30Mer[facility] Mills HospitalComment on above:Result Comment: METHOD TRACEABLE TO IDMS STANDARD Performed By: #### SHELLY KENNEDY, BMP #### [facility] ([id number]) [address], [address] [place], [place] [address]LLC/1.73 sq M.predicted among non-blacks MDRD (S/P/Bld) [Vol rate/Area]47 mL/min/{1.73_m2}Low>59ProTexas Health Southwest Fort WorthComment on above: Result Comment: Reported eGFR is based on the CKD-EPI 2020 equation that does not use a race coefficient.Performed By: #### SHELLY KENNEDY, BMP #### [facility] ([id number]) [address], [address] [place], [place] [address]Fvmfetg [Mass/Vol]210 mg/kSVsvf28-50EvvEffealMercy Health Kings Mills Hospital Comment on above:Performed By: #### SHELLY KENNEDY, BMP #### [facility] ([id number]) [address], [address] [place], [place] [address]Llqlpxrpg [Moles/Vol]5.9 mmol/LHigh3.5-5.0ProTexas Health Southwest Fort WorthComment on above:Performed By: #### SHELLY KENNEDY, BMP #### [facility] ([id number]) [address], [address] [place], [place] [address]Znxgfm [Moles/Vol]131 mmol/UByo146-681WmaBcfuatMercy Health Kings Mills Hospital Comment on above:Performed By: #### SHELLY KENNEDY, BMP #### [facility] ([id number]) [address], [address] [place], [place] [address]Eika nitrogen [Mass/Vol]55 mg/dLHigh5-27ProTexas Health Southwest Fort WorthComment on above:Performed By: #### SHELLY KENNEDY, BMP #### [facility] ([id number]) [address], [address] [place], [place] [address]KPH AND AUTO DIFFon 32-29-4567TIGIVOKP BASOPHIL0.1 X10E9/LNormal 0.0-0.2PUniversity Hospitals Ahuja Medical CenterComment on above:Performed By: #### SHELLY KENNEDY, BMP #### [facility] ([id number]) [address], [address] [place], [place] [address]HFSBDBTK CPEXAVBHQJ45.1 X10E9/LHigh1.5-6.6ProTexas Health Southwest Fort WorthComment on above:Performed By: #### SHELLY KENNEDY, BMP #### [facility] ([id number]) [address], [address] [place], [place] [address]Dfmmxfuhw/100 WBC (Bld)0.4 %[facility] Comment on above:Performed By: #### PINR, CBCA, BMP #### [facility] ([id number]) [address], [facility] [address] [place], [place] [address]Uwkguvfftfh (Bld) [#/Vol]0.1 10*3/uLNormal0.0-0.4ProTexas Health Southwest Fort WorthComment on above:Performed By: #### PINR, CBCA, BMP #### [facility] ([id number]) [address], [facility] [address] [place], [place] [address]Yompomzoqlt/100 WBC (Bld)0.5 %[facility] Comment on above:Performed By: #### PINR, CBCA, BMP #### [facility] ([id number]) [address] [address]Uwerelxyavp distribution width (RBC) [Ratio]14.1 %Normal 11.5-15.0Mer[facility] Health [facility] Mills HospitalComment on above:Performed By: #### PINR, CBCA, BMP #### [facility] ([id number]) [address] [address] [place], [place] [address]Xqcmofydsi (Bld) [Volume fraction]42.0 %Skhwzq58-42YtnNymlciTexas Health Southwest Fort WorthComment on above:Performed By: #### PINR, CBCA, BMP #### [facility] ([id number]) [address] [address]Ichpvjgxbu (Bld) [Mass/Vol]14.3 g/dDDiirca44.0-17.0Mer[facility] Health [facility] Mills HospitalComment on above:Performed By: #### PINR, CBCA, BMP #### [facility] ([id number]) [address], [facility] [address] [place], [place] [address]Utmsqmougvg (Bld) [#/Vol]1.8 10*3/uLNormal1.0-3.5ProMedica Ukiah Valley Medical CenterComment on above:Performed By: #### SHELLY KENNEDY, BMP #### [facility] ([id number]) [address], [address] [place], [place] [address]Nfjyxomujbv/100 WBC (Bld)14.1 %NormalProTexas Health Southwest Fort Worth Comment on above:Performed By: #### MARCIA CBCA, BMP #### [facility] ([id number]) [address], [address] [place], [place] [address]EWQ (RBC) [Entitic mass]31.7 bnOeqkrt83-71ZiuDvdbjqTexas Health Southwest Fort WorthComment on above:Performed By: #### MARCIA CBCA, BMP #### [facility] ([id number]) [address], [address] [place], [place] [address]NEQZ (RBC) [Mass/Vol]34.0 g/qFExbpac51-13MzhGbkwgoTexas Health Southwest Fort WorthComment on above:Performed By: #### MARCIA CBCA, BMP #### [facility] ([id number]) [address], [address] [place], [place] [address]KCN (RBC) [Entitic vol]93 aOCdissc99-998ZhtXnzhbw Fremont HospitalComment on above:Performed By: #### PINGraciela CBCA, BMP #### [facility] ([id number]) [address], [address] [place], [place] [address]Mpfiwhfus (Bld) [#/Vol]0.5 10*3/uLNormal0-0.9[facility] HospitalComment on above:Performed By: #### PINGraciela CBCA, BMP #### [facility] ([id number]) [address], [address] [place], [place] [address]Oaspxdnqi/100 WBC (Bld)4.1 %NormalProMedica Center Hospital Comment on above:Performed By: #### PINGraciela, CBCA, BMP #### [facility] ([id number]) [address], [address] [place], [place] [address]Bkrhuhmesms/100 WBC (Bld)80.9 %[facility] Comment on above:Performed By: #### PINGraciela, CBCA, BMP #### [facility] ([id number]) [address], [address] [place], [place] [address]Unixmpnj mean volume (Bld) [Entitic vol]7.4 fLNormal7-12 [facility] HospitalComment on above:Performed By: #### PINGraciela, CBCA, BMP #### [facility] ([id number]) [address] [address] [place], [place] [address]Ytzmpclop (Bld) [#/Vol]171 10*3/xPOrtcyj612-080LpzCyupqfMercy Health Kings Mills HospitalComment on above:Performed By: #### PINGraciela, CBCA, BMP #### [facility] ([id number]) [address] [address]WUV COUNT4.51 X10E12/LNormal4.10-5.70[facility] Comment on above:Performed By: #### PINGraciela, CBCA, BMP #### [facility] ([id number]) [address] [address]PSM (Bld) [#/Vol]12.5 10*3/uLHigh4.0-11.0[facility] HospitalComment on above:Performed By: #### PINGraciela, CBCA, BMP #### [facility] ([id number]) [address] [address]MLL W Auto Differential panel (Bld)on 33-61-1495JTEBSSFM BASOPHIL0.1NOMS HealthcareComment on above:PERFORMED AT [facility] [address],[place], [place] [address]Cqzhxuhfq/100 WBC (Bld)0.4 %NOMS HealthcareEosinophils (Bld) [#/Vol]0.1 10*3/uLNOMS HealthcareEosinophils/100 WBC (Bld)0.5 %NOMS HealthcareErythrocyte distribution width (RBC) [Ratio]14.1 %11.5 - 15.0 %NOMS HealthcareHematocrit (Bld) [Volume fraction]42.0 %39 - 49 %NOM HealthcareHemoglobin (Bld) [Mass/Vol]14.3 g/dL13.0 - 17.0 g/dLUniversity Health Lakewood [facility] Center Interpretation and review of laboratory resultsAbnormalUniversity Health Lakewood Medical Center Lymphocytes (Bld) [#/Vol]1.8 10*3/uLNONC HealthcareLymphocytes/100 WBC (Bld)14.1 %[facility] Lake[facility] Medical CenterMCH (RBC) [Entitic mass]31.7 pg27 - 34 pgUniversity Health Lakewood Medical CenterMCHC (RBC) [Mass/Vol]34.0 g/dL32 - 36 g/dLUniversity Health Lakewood Medical CenterMCV (RBC) [Entitic vol]93 fL 80 - 100 fLTHE ORTHOP[facility]IC SPECIALTY [facility] HealthcareMonocytes (Bld) [#/Vol]0.5 10*3/uLNONC Healthcare Monocytes/100 WBC (Bld)4.1 %[facility] HealthcareNeutrophils (Bld) [#/Vol]10.1 10*3/uL HighNONC HealthcareNeutrophils/100 WBC (Bld)80.9 %[facility] HealthcarePlatelet mean volume (Bld) [Entitic vol]7.4 fL7 - 12 fLTHE ORTHOPEDIC SPECIALTY [facility]OSPITAL HealthcarePlatelets (Bld) [#/Vol] 171 10*3/uLNONC HealthcareRBC (Bld) [#/Vol]4.51 10*6/uLNONC HealthcareWBC corrected for nucl RBC Auto (Bld) [#/Vol]12.5HMayo Clinic Health System[facility] PROTIME AND INRon 86-88-1571SDW Coag (PPP) [Relative time]1.0 {INR}Normal0.8-1.1 [facility] Center HospitalComment on above:Performed By: #### SHELLY KENNEDY, BMP #### [facility] ([id number]) [address], [address] [place], [place] [address]QH Coag (PPP) [Time]11.7 sNormal9.8-13.2Pro[facility] Medical CenterComment on above:Performed By: #### SHELLY KENNEDY, BMP #### [facility] ([id number]) [address], [address] [place], [place] [address]QF gastric emptying studyon 21-56-2234XL gastric emptying study [facility] Main [place] [address] [place] [address] Nuclear Medicine Report Signed Patient: Milad Seymour MR#: [id number] : 1955 Acct:[id number] Age/Sex: 67 / M ADM Date: 08/22/23 Loc: [place] Room: Type: [facility] Attending Dr: Kike Bernal MD Copies to: MD Shaheen Ralph Jr, DO Ordering Provider: Kike Bernal MD Date of Service: 08/22/23 [place] gastric emptying study: R11.10 - Vomiting, unspecified [...] Grimes Jr., D.OJitendra08/22/2023 12:21 PM Dictation Location: [place] [address] Transcribed By: WOODY 08/22/23 1221 Dictated By: Shaheen Grimes Jr, DO 08/22/23 1215 Signed By: 08/22/23 1221NoDuke Health Physician GroupGlucose Poct Glucometerson 45-54-7994Gjlpuyf [Mass/Vol]182 mg/dLNoDuke Health Physician GroupComment on above:Result Comment: Random Glucose Reference Range is dependent on time and content of last meal. Glucose of more than 200 mg/dL in a nonstressed, ambulatory subject supports the diagnosis of Diabetes Mellitus. PERFORMED BY: [place] [address] PATHOLOGIST CHILD ABUSE WORKER JEANNINE VAZQUEZ M.D.Performed By: #### GLULS #### Point of Care testing ,Glucose [Mass/Vol]227 mg/dLNoDuke Health Physician [facility] Rush HealthComment on above: Result Comment: Random Glucose Reference Range is dependent on time and content of last meal. Glucose of more than 200 mg/dL in a nonstressed, ambulatory subject supports the diagnosis of Diabetes Mellitus. PERFORMED BY: [place] [id number] PATHOLOGIST CHILD ABUSE WORKER JEANNINE VAZQUEZ M.D.Performed By: #### GLULS #### Point of Care testing ,XR pre/post mri xrayon 21-61-8996NA pre/post mri xrayMOUNT [facility]. [facility] Main [address] [address] MRI Report Signed Patient: Milad Seymour MR#: [id number] : 1955 Acct:[id number] Age/Sex: 67 / M ADM Date: 08/20/23 Loc: [place] Room: Type: [facility] Attending Dr: Dank Campo MD Copies to: Dank Campo MD Ordering Provider: Dank Campo MD Date of Service: 08/20/23 MR/MR lumbar spine wo con: M47.816 ([id number]) XR/XR pre/post mri xray: PRE LUMBAR MRI [...] Tom Chanel M.D.08/20/2023 1:02 PM Dictation Location: [place] [address] Transcribed By: [facility] 08/20/23 1302 Dictated By: Tom Chanel DO 08/20/23 1250 Signed By: 08/20/23 1302[facility] Physician JxqegWkH6z (Bld) [Mass fraction]on 46-39-6169Lqurvyeelduhah and review of laboratory resultsAbMcKenzie Memorial Hospital HealthcareLaboratory - Hematology and Cell countson 71-96-4746JaR2z (Bld) [Mass fraction]8.9 %[facility] HealthcareGlucose Glucometer (BldC) [Mass/Vol]Ordered By: Kike Bernal on 76-51-1054Bvpzzcy [Mass/Vol]189 mg/dLOhiohealth Hardin Memorial HospitalComment on above:Random Glucose Reference Range is dependent on time and content of last meal. Glucose of more than 200 mg/dL in a nonstressed, ambulatory subject supports the diagnosis of Diabetes Mellitus.No Panel InformationOrdered By: Kike Bernal on 84-44-8016Sgczsaa Glucose CommentGlu2: cleaned [facility] Medical CenterXR LUMBAR SPINE 2 OR 3Von 21-43-5205Rujmtuopr Study observation (narrative)NOMS HealthcareCHEMISTRYOrdered By: SYSTEM SYSTEM on 10-99-2792Nmnlgfgj specific Ag [Mass/Vol]0.4 ng/mLNormal 0.1 - 3.5 ng/mLROGER MILLS [facility] RemisolPANCREATIC ELASTASE FECALon 65-60-5044Xauvclpjwp Elastase, Gwisw542 ug Elast./gNormal>200The [facility] [place] [facility] HospitalComment on above: Result Comment: Severe Pancreatic Insufficiency: <100 Moderate Pancreatic Insufficiency: 100 - 200 Normal: >200Performed By: #### CPEPT #### [facility] [address] [place] [address] Dr. Stewart De La CruzPOTASSIUM, FECALon 61-22-6482Ivwqustjb, Stool57 mmol/LNormalBluffton HospitalComment on above:Result Comment: INTERPRETIVE INFORMATION: Fecal Potassium A reference interval has not been established for fecal specimens. This test was developed and its performance characteristics determined by [email or web address]. It has not been cleared or approved by the [place] Food and Drug Administration. This test was performed in a CLIA certified laboratory and is intended for clinical purposes.Performed By: #### CPEPT #### [facility] [address] [place] [address] Dr. Stewart De La CruzSODIUM, FECALon 08-57-1081Ubkmxy, Stool65 mmol/LNormalBluffton HospitalComcorewell health ludington hospital on above:Result Comment: INTERPRETIVE INFORMATION: Fecal Sodium A reference interval has not been established for fecal specimens. This test was developed and its performance characteristics determined by [email or web address]. It has not been cleared or approved by the [place] Food and Drug Administration. This test was performed in a CLIA certified laboratory and is intended for clinical purposes.Performed By: #### FECALN #### [facility] [address] [place] [address] Dr. Stewart De La CruzCALPROTECTIN, FECALon 59-98-1074Opiuqysckrpg, Fecal43 ug/gNormal 0-120The [facility] on above:Result Comment: Concentration Interpretation Follow-Up <16 - 50 ug/g Normal None >50 -120 ug/g Borderline Re-evaluate in 4-6 weeks >120 ug/g Abnormal Repeat as clinically indicatedPerformed By: #### CPEPT #### [facility] [address] [place] [address] Dr. Stewart De La CruzC-PEPTIDE, SERUMon 48-96-6540D-Peptide, Serum6.5 ng/mLCritically high1.1-4.4The [facility] [place] [facility] HospitalComcorewell health ludington hospital on above:Result Comment: C-Peptide reference interval is for fasting patients.Performed By: #### CPEPT #### [facility] [address] [place] [address] Dr. Stewart De La CruzHIV 1 AND 2 WITH REFLEXon 57-58-5670BQI Screen 4th Generation wRfxNon-ReactiveNormalNon ReactiveThe [facility] on above:Result Comment: HIV Negative HIV-1/HIV-2 antibodies and HIV-1 p24 antigen were NOT detected. There is no laboratory evidence of HIV infection.Performed By: #### CPEPT #### [facility] [address] [place] [address] Dr. Stewart De La CruzINSULINon 36-58-0092Nxsssfb02.9 uIU/mLNormal2.6-24.9The [facility] on above:Performed By: #### CPEPT #### [facility] [address] [place] [address] Dr. Stewart De La CruzPOTASSIUM, FECALon 34-32-8635Iyvmxthgy, StoolQNSMTNormalThe [facility] [place] [facility] HospitalComment on above:Result Comment: Test not performed. One specimen was submitted with requests for multiple tests. The requested testing requires a separate specimen for each test requested. contacted Keesha at your facility on [phone] By: #### CPEPT #### [facility] [address] [place] [address] Dr. Stewart De La CruzSODIUM, FECALon 82-82-9768Axnbqf, StoolQNSMTNormalThAvita Health System Galion HospitalComment on above:Result Comment: Test not performed. One specimen was submitted with requests for multiple tests. The requested testing requires a separate specimen for each test requested. contacted Keesha at your facility on [phone] By: #### FECALN #### [facility] [address] [place] [address] Dr. Stewart Summers AUTO DIFFon 55-08-9575AASD #0.1 103/ulNormal0.0-0.1The [facility] [place] [facility] HospitalComment on above:Performed By: #### CPEPT #### [facility] [address] [place] [address] Dr. Stewart De La CruzBasophils/100 WBC (Bld)1.2 %Normal0.2-2.0[facility] Comment on above:Performed By: #### CPEPT #### [facility] [address] [place] [address] Dr. Stewart Betancur #0.3 103/ulNormal0.0-0.7The [facility] [place] [facility] HospitalComment on above: Performed By: #### CPEPT #### [facility] [address] [place] [address] Dr. Stewart Grantosinophils/100 WBC (Bld)4.5 %Normal0.9-7.0[facility] Comment on above:Performed By: #### CPEPT #### [facility] [address] [place] [address] Dr. Stewart Grantrythrocyte distribution width (RBC) [Ratio]12.9 %Pqkjwo51.0-15.0 [facility] HospitalComment on above:Performed By: #### CPEPT #### [facility] [address] [place] [address] Dr. Stewart De La CruzHematocrit (Bld) [Volume fraction]44.6 %Rbpwlw39.0-54.0[facility] HospitalComment on above:Performed By: #### CPEPT #### [facility] [address] [place] [address] Dr. Stewart De La CruzHemoglobin (Bld) [Mass/Vol]14.9 g/oTOdjvmy58.0-18.0The [facility] [place] [facility] HospitalComment on above:Performed By: #### CPEPT #### [facility] [address] [place] [address] Dr. Stewart Paula #0.03 10e3/ulNormal0.00-0.03The [facility] [place] [facility] HospitalComment on above:Performed By: #### CPEPT #### [facility] [address] [place] [address] Dr. Stewart Paula %0.5 %Normal0.0-0.5The [facility] [place] [facility] HospitalComment on above: Performed By: #### CPEPT #### [facility] [address] [place] [address] Dr. Stewart Winston #1.1 103/ulCritically low1.2-3.8[facility] Comment on above:Performed By: #### CPEPT #### [facility] [address] [place] [address] Dr. Stewart Jolleyhocytes/100 WBC (Bld)18.5 %Critically low20.5-60.0The [facility] [place] [facility] HospitalComment on above:Performed By: #### CPEPT #### [facility] [address] [place] [address] Dr. Stewart GarciaUAL DIFF REQNONormalThe [facility] [place] [facility] HospitalComment on above: Performed By: #### CPEPT #### [facility] [address] [place] [address] Dr. Stewart Brewer (RBC) [Entitic mass]29.2 ngShkdbo78.9-34.0The [facility] [place] [facility] HospitalComment on above:Performed By: #### CPEPT #### [facility] [address] [place] [address] Dr. Stewart Phillips (RBC) [Mass/Vol]33.4 g/hRRqfxzh24.9-35.2The [facility] [place] [facility] HospitalComment on above:Performed By: #### CPEPT #### [facility] [address] [place] [address] Dr. Stewart PhillipsV (RBC) [Entitic vol]87.5 bMPurwtm00.0-94.0The Memorial Hospitalment on above:Performed By: #### CPEPT #### [facility] [address] [place] [address] Dr. Stewart Emanuel #0.4 103/ulNormal0.3-0.8The [facility] [place] [facility] HospitalComment on above:Performed By: #### CPEPT #### [facility] [address] [place] [address] Dr. Stewart Wootenocytes/100 WBC (Bld)6.8 %Normal1.7-12.0The [facility] Comment on above:Performed By: #### CPEPT #### [facility] [address] [place] [address] Dr. Stewart Cervantes #4.2 103/ulNormal1.4-6.5The [facility] [place] [facility] HospitalComment on above:Performed By: #### CPEPT #### [facility] [address] [place] [address] Dr. Stewart Yarbroughutrophils/100 WBC (Bld)68.5 %Pdwlzj46.0-75.0The [facility] [place] [facility] HospitalComment on above:Performed By: #### CPEPT #### [facility] [address] [place] [address] Dr. Stewart Paullet mean volume (Bld) [Entitic vol]9.8 fLNormal9.5-13.5The [facility] [place] [facility] HospitalComment on above:Performed By: #### CPEPT #### [facility] [address] [place] [address] Dr. Stewart De La CruzPLT133 103/ulCritically dtz991-813Rke [facility] [place] [facility] HospitalComment on above:Performed By: #### CPEPT #### [facility] [address] [place] [address] Dr. Stewart De La CruzRBC5.10 106/ulNormal4.70-6.10The [facility] [place] [facility] HospitalComment on above:Performed By: #### CPEPT #### [facility] [address] [place] [address] [address] Stewart De La CruzWBC6.1 103/ulNormal4.0-11.0The [facility] [place] [facility] HospitalComment on above: Performed By: #### CPEPT #### [facility] [address] [place] [address] [address] Stewart De La CruzCRPon 54-81-5371ALB [Mass/Vol]mg/LNormal<=1.0The [facility] [place] [facility] HospitalComment on above:Performed By: #### CRP #### [facility] [address] [place] [address] Dr. Stewart De La CruzGLYCOHEMOGLOBIN A1Con 51-21-3959AMI RECOMMENDATIONSEE BELOWNormal The [facility] [place] [facility] HospitalComment on above:Result Comment: ADA RECOMMENDED LIMIT 4.0 - 6.0 ADA THERAPEUTIC TARGET < 7.0 ACTION SUGGESTED > 7.0Performed By: #### A1C #### [facility] [address] [place] [address] Dr. Stewart De La CruzGlucose [Mass/Vol]278 mg/dLNormalThe [facility] [place] [facility] HospitalComment on above:Performed By: #### A1C #### [facility] [address] [place] [address] Dr. Stewart De La CruzHbA1c (Bld) [Mass fraction]11.3 %Critically high4.5-6.2The [facility] [place] [facility] HospitalComment on above:Performed By: #### A1C #### [facility] [address] [place] [address] Dr. Stewart De La CruzPROF CHEM 8 (BAS METB)on 90-98-1949Obxws gap [Moles/Vol]16.9 mmol/LNormalThe [facility] [place] [facility] HospitalComment on above:Performed By: #### CPEPT #### [facility] [address] [place] [address] Dr. Stewart De La CruzCalcium [Mass/Vol]9.3 mg/dLNormal8.5-10.1The [facility] Comment on above:Performed By: #### CPEPT #### [facility] [address] [place] [address] Dr. Stewart De La CruzChloride [Moles/Vol]103 mmol/XAqsejh37-197Sct [facility] Comment on above:Performed By: #### CPEPT #### [facility] [address] [place] [address] Dr. Stewart De La CruzCO2 [Moles/Vol]26.0 mmol/IPbjuzj73.0-32.0The [facility] Comment on above:Performed By: #### CPEPT #### [facility] [address] [place] [address] [address] Stewart De La CruzCreatinine [Mass/Vol]1.43 mg/dLCritically high0.70-1.30The [facility] [place] [facility] HospitalComment on above:Performed By: #### CPEPT #### [facility] [address] [place] [address] Dr. William ChangEGFR-AF WKBYWCBZ56 mL/min/1.57v1Hhzzzb>=60The [facility] Comment on above:Performed By: #### CPEPT #### [facility] [address] [place] [address] Dr. Stewart GrantGFR-NON AF NKIWRSUE18 mL/min/1.35z0Lhgdeoaocf low>=60The [facility] [place] [facility] HospitalComment on above:Performed By: #### CPEPT #### [facility] [address] [place] [address] Dr. Stewart De La CruzGlucose [Mass/Vol]293 mg/dLCritically zfpu30-048Esz [facility] HospitalComment on above:Performed By: #### CPEPT #### [facility] [address] [place] [address] Dr. Stewart De La CruzPotassium [Moles/Vol]4.9 mmol/LNormal3.5-5.1The [facility] Comment on above:Performed By: #### CPEPT #### [facility] [address] [place] [address] Dr. Stewart De La CruzSodium [Moles/Vol]141 mmol/DXxzrud825-006Bih [facility] Comment on above:Performed By: #### CPEPT #### [facility] [address] [place] [address] Dr. Stewart De La CruzUrea nitrogen [Mass/Vol]32.0 mg/dLCritically high7.0-18.0[facility] on above:Performed By: #### CPEPT #### [facility] [address] [place] [address] [address] Stewart De La CruzUrea nitrogen/Creatinine [Mass ratio]22.4 mg/mgNoSheltering Arms HospitalComment on above:Performed By: #### CPEPT #### [facility] [address] [place] [address] [address] Stewart De La CruzSED RATE WESTERGRENon 32-62-5974UBC RATE17 mm/hrNormal<=20The [facility] [place] [facility] HospitalComcorewell health ludington hospital on above:Performed By: #### SEDR #### [facility] [address] [place] [address] [address] Stewart De La CruzRAD EGD - documentation only do not orderon 36-50-1303SEO EGD - documentation only do not orderSouth Carver MDCapsule Other Glucose Glucometer (BldC) [Mass/Vol]Ordered By: Kike Bernal on 99-54-0037Bqycusj [Mass/Vol]275 mg/dLOhiohealth Hardin Memorial Hospital Comment on above:Random Glucose Reference Range is dependent on time and content of last meal. Glucose of more than 200 mg/dL in a nonstressed, ambulatory subject supports the diagnosis of Diabetes Mellitus.GLYCOHEMOGLOBIN A1Con 04-08-2827HRK RECOMMENDATIONSEE Wilson HealthComcorewell health ludington hospital on above:Result Comment: ADA RECOMMENDED LIMIT 4.0 - 6.0 ADA THERAPEUTIC TARGET < 7.0 ACTION SUGGESTED > 7.0Performed By: #### A1C #### [facility] [address] [place] [address] [address] Stewart De La CruzGlucose [Mass/Vol]235 mg/dLMercy Health on above:Performed By: #### A1C #### [facility] [address] [place] [address] [address] Stewart De La CruzHbA1c (Bld) [Mass fraction]9.8 %Critically high4.5-6.2The [facility] [place] [facility] HospitalComment on above:Performed By: #### A1C #### [facility] [address] [place] [address] [address] Stewart De La CruzGLYCOHEMOGLOBIN A1Con 18-92-3640PYJ RECOMMENDATIONSEE BELOWNormal The [facility] [place] [facility] HospitalComment on above:Result Comment: ADA RECOMMENDED LIMIT 4.0 - 6.0 ADA THERAPEUTIC TARGET < 7.0 ACTION SUGGESTED > 7.0Performed By: #### A1C #### [facility] [address] [place] [address] [address] Stewart De La CruzGlucose [Mass/Vol]197 mg/dLNormalThAvita Health System Galion HospitalComment on above:Performed By: #### A1C #### [facility] [address] [place] [address] Dr. Stewart De La CruzHbA1c (Bld) [Mass fraction]8.5 %Critically high4.5-6.2The [facility] [place] [facility] HospitalComment on above:Performed By: #### A1C #### [facility] [address] [place] [address] Dr. Stewart Madrid, FREE AND TOTAL RATIOon 01-28-2022% Free PSA30.0 %NormalThe [facility] on above:Result Comment: The table below lists the probability [...] free PSA for any other population of men.Performed By: #### PSAFREE #### [facility] [address] [place] [address] Dr. Stewart De La CruzProstate specific Ag [Mass/Vol]0.1 ng/mLNormal0.0-4.0The [facility] on above:Result Comment: Ileana ECLIA methodology. . According to the [place] [employer], Serum PSA should decrease and [...] of the presence or absence of malignant disease.Performed By: #### PSAFREE #### [facility] [address] [place] [address] [address] Stewart Madrid, Free0.03 ng/mLNormalN/AThe [facility] on above:Result Comment: Ileana ECLIA methodology.Performed By: #### PSAFREE #### [facility] [address] [place] [address] [address] Stewart De La CruzGLYCOHEMOGLOBIN A1Con 87-15-3192XWH RECOMMENDATIONSEE BELOWNormal The [facility] on above:Result Comment: ADA RECOMMENDED LIMIT 4.0 - 6.0 ADA THERAPEUTIC TARGET < 7.0 ACTION SUGGESTED > 7.0Performed By: #### A1C #### [facility] [address] [place] [address] [address] Stewart De La CruzGlucose [Mass/Vol]192 mg/dLNormalThe [facility] on above:Performed By: #### A1C #### [facility] [address] [place] [address] [address] Stewart De La CruzHbA1c (Bld) [Mass fraction]8.3 %Critically high4.5-6.2The [facility] on above:Performed By: #### A1C #### [facility] [address] [place] [address] Dr. Stewart Larson 57-94-2625BTDHHijpte Visit (RADTSA) MILAD SEYMOUR ([id number]) 1955 M Date Time Provider Department 02/01/21 [...] DIAGNOSIS: Prostate adenocarcinoma, initial PSA 14.65, biopsy Belfield score 3 + 3 = 6 (grade [...] Fawad Diaz MD cc: Dank Campo MD ([facility]) [address] [place] [address] Dr. Petersen Portions of the above note extracted and edited from previous visit as well as active information included in the EMR. Referring Provider: Fawad DIAZ [[id number]] Allergies As of Date: 02/01/2021 (No Known Allergies) Date Reviewed: 02/01/2021 Reviewed by: Tila Herrera LPN - Fully Assessed Reason for Visit: Prostate Cancer [590] Primary Visit Diagnosis:Malignant neoplasm of prostate (HCC) [C61] Order(s):PSA/PROSTSPECAG DIAG [SQPSA] Order #: [id number] FUTURE Prescriptions as of 02/03/2021 - aspirin, [...] (241.3 mg magnesium) t (more content not included)...NormalBarberton Citizens HospitalPS, Diagnosticon [id number], Diagnostic0.29 ng/mLNormal0.00-2.59Barberton Citizens HospitalComment on above: Result Comment: Total PSA test methodology used is the Electrochemiluminescence Immunoassay.Performed By: #### PSA #### [facility] [address] [place], [place] [address] ONZURUFYln [id number] (RADTSA) MILAD SEYMOUR ([id number]) 1955 M Date Time Provider Department 12/22/20 [...] daily. Encounter Status:Closed by TILA HERRERA on 01/04/21[facility] [id number] Visit (RADTSA) MILAD SEYMOUR ([id number]) 1955 M Date Time Provider Department 11/03/20 4:00 PM LAB/PORT RADT ADAM DIMAS During your visit today, we recorded the following information about you: Referring Provider: Fawad DIAZ [[id number]] Allergies As of Date: 11/03/2020 (No Known [...] los*01/16/2020 Encounter Status:Closed by TILA HERRERA on 11/03/20[facility] Visit (RADTSA) MILAD SEYMOUR ([id number]) 1955 M Date Time Provider Department 11/03/20 [...] Fawad Diaz MD cc: Dank Campo MD ([facility]) [address] [place] [id number] Petersen Referring Provider: Fawad DAIZ [[id number]] Allergies As of Date: 11/03/2020 (No Known Allergies) Date Reviewed: 11/03/2020 Reviewed by: Fawad Diaz MD - Fully Assessed Reason for Visit: Prostate Cancer [590] Primary Visit Diagnosis:Malignant neoplasm of prostate (HCC) [C61] Order(s):PSA/PROSTSPECAG DIAG [SQPSA] Order #: [id number] FUTURE Prescriptions as of 11/03/2020 Sig: TAMSULOSIN [...] lansoprazole 30 mg (more content not included)... NormalFostoria City Hospital, Diagnosticon [id number], Diagnostic0.27 ng/mLNormal0.00-2.59[facility] on above:Result Comment: Total PSA test methodology used is the Electrochemiluminescence Immunoassay. Performed By: #### PSA #### [facility] [address] [place], [place] [address] FDIGcl [id number] (RADTSA) MILAD SEYMOUR ([id number]) 1955 M Date Time Provider Department 10/29/20 [...] since completing radiation therapy. Call transferred to [facility] to move up appointment. Dr. Diaz, 07/27/20 [...] (HCC) [C61] Order(s):PSA/PROSTSPECAG DIAG [SQPSA] Order #: [id number] FUTURE Prescriptions as of 10/29/2020 Sig: TAMSULOSIN [...] los*01/16/2020 Encounter Status:Closed by TILA HERRERA on 10/29/20[facility] [id number] (HEMASA) MILAD SEYMOUR ([id number]) 1955 M Date Time Provider Department 10/08/20 HEATHER BARRIGA During your visit today, we recorded the following information about you: Allergies As of Date: 10/08/2020 (No Known Allergies) Date Reviewed: 07/14/2020 Reviewed by: Joann Richardson - Fully Assessed Reason for Visit: Lab Orders [7228] Primary Visit Diagnosis:Iron deficiency anemia due to chronic blood loss [D50.0] Order(s):CBC + DIFF (FOR REMOTE [facility] USE) [SQRCBCDF] Order #: [id number] FUTURE COMP METABOLIC PANEL [SQCMP] Order #: [id number] FUTURE Prescriptions as of 10/08/2020 Sig: TAMSULOSIN [...] los*01/16/2020 Encounter Status:Closed by TASHA GOOD on 10/14/20[facility] [id number] (RADTSA) MILAD SEYMOUR ([id number]) 1955 M Date Time Provider Department 09/20/20 [...] daily. Encounter Status:Closed by TILA HERRERA on 10/14/20[facility] Vital Signs Date TimeVital SignValuePerforming WwuqvwzxpMxwygshf64-09-5191 11:10-0500Body hukfnw067 Pavel Matthew MD Work Phone: [facility] CenterNqcdrtnqal71-80-7137 11:10-0500Body mass index (BMI) [Ratio]37.76 kg/m1VqccmDeb Matthew MD Work Phone: [phone] CenterWgisyywuwq95-73-3268 11:10-0500Body vhuimq093.31 kgDeb Matthew MD Work Phone: [facility] CenterRevvzbwecg13-61-6528 11:10-0500Heart rate81 /min Deb Matthew MD Work Phone: 1(817)[address]11-12-2025 11:10-0500Respiratory rate18 /minDeb Matthew MD Work Phone: 1(289)[address] [place], [place] 7301311-12-2025 11:10-4853VgT6% (BldA) [Mass fraction]94 %Deb Matthew MD Work Phone: 1(238)[facility] [place], [place] [address]Azxyrtshgc19-22-8238 11:20-0400Body cm Deb Matthew MD Work Phone: 1(991)[address] [place], [place] 7301308-13-2025 11:20-0400Body mass index (BMI) [Ratio]38.66 kg/n9ZpokvDeb Matthew MD Work Phone: 1(653)[address] [place], [place] 7301308-13-2025 11:20-0400Body ylpbci725.03 kgDeb Matthew MD Work Phone: 1(574)[address] [place], [place] 7301308-13-2025 11:20-0400Diastolic blood jcfegnxt74 mm[Hg]Deb Matthew MD Work Phone: 1(495)[address] [place], [place] 7301308-13-2025 11:20-0400Heart rate75 /min Deb Matthew MD Work Phone: 1(956)[address] [place], [place] 7301308-13-2025 11:20-0400Respiratory rate16 /minDeb Matthew MD Work Phone: 1(176)[facility] [place], [place] [address]Zkjepqvgpq64-91-7696 11:20-3783CbS5% (BldA) [Mass fraction]96 %Deb Matthew MD Work Phone: 1(319)[address] [place], [place] 7301308-13-2025 11:20-0400Systolic blood mm[Hg]Deb Matthew MD Work Phone: 1(058)[address] [place], [place] 7301307-08-2025 14:09-0400Body sefbhr123.26 cmDank Campo MD Work Phone: [facility]07-08-2025 14:09-0400 Body mass index (BMI) [Ratio]37.6 kg/m2Dank Campo MD Work Phone: [facility]07-08-2025 14:09-0400 Body bbmpuq544.66 kgDank Campo MD Work Phone: [facility]07-08-2025 14:09-0400 Diastolic blood juakkfdf81 mm[Hg]Dank Campo MD Work Phone: [facility]07-08-2025 14:09-0400 Heart rate83 /minDank Campo MD Work Phone: [phone]07-08-2025 14:09-0400 Systolic blood hkvnizvr066 mm[Hg]Dank Campo MD Work Phone: [phone]05-12-2025 10:30-0400 Body dudcls958.3 cmHanna Butcher MD Work Phone: [phone]05-12-2025 10:30-0400Body mass index (BMI) [Ratio]38.02 kg/g1MsatzmfHanna Butcher MD Work Phone: [facility]05-12-2025 10:30-0400Body tabruh878.85 kgHanna Butcher MD Work Phone: [facility]05-12-2025 10:30-0400Diastolic blood uuthhtec79 mm[Hg]Hanna Butcher MD Work Phone: [facility]05-12-2025 10:30-0400Heart rate 79 /minHanna Butcher MD Work Phone: [phone]05-12-2025 10:30-6761KlI8% (BldA) [Mass fraction]97 %Hanna Butcher MD Work Phone: [facility]05-12-2025 10:30-0400Systolic blood tuyhsbiu683 mm[Hg]Hanna Butcher MD Work Phone: [phone]04-01-2025 15:05-0400Body rqliev677.26 cmDank Campo MD Work Phone: [facility]04-01-2025 15:05-0400 Body mass index (BMI) [Ratio]37.6 kg/m2Dank Campo MD Work Phone: [facility]04-01-2025 15:05-0400 Body dudnmn049.66 kgDank Campo MD Work Phone: [facility]02-13-2025 10:32-0500 Body tehmvg353.8 cmAllison Petznick DO Work Phone: 1(117)[facility] [place], [place] [address]Qwcnmczzzk43-60-0343 10:32-0500Body mass index (BMI) [Ratio]37.02 kg/v8Famonnw Petznick DO Work Phone: 1(108)[facility] [place], [place] [address]Efmkegtwdq26-76-9774 10:32-0500Body temperature 97.9 [degF]Ashli Petznick DO Work Phone: 1(189)[facility] [place], [place] [address]Hljiofluxq24-74-7646 10:32-0500Body .03 kgAllison Petznick DO Work Phone: 1(987)[facility] [place], [place] [address]Fkjidvtupi72-66-6597 10:32-0500Diastolic blood lmhwvcsu93 mm[Hg]Ashli Petznick DO Work Phone: 1(812)[facility] [place], [place] [address]Npilewsjqb46-10-1711 10:32-0500Heart rate78 /min Ashli Petznick DO Work Phone: 1(183)[facility] [place], [place] [address]Ivaxsryglj60-20-7961 10:32-3083PmO0% (BldA) [Mass fraction]97 %Ashli Petznick DO Work Phone: 1(644)[facility] [place], [place] [address]Gchyeqpedv86-96-4617 10:32-0500Systolic blood uvxihtsy267 mm[Hg]Ashli Petznick DO Work Phone: 1(644)[facility] [place], [place] [address]Ynemdsnmvn24-61-9088 14:11-0500Body wwakdc638.26 cmOhio[facility] Hospital02-12-2025 14:11-0500Body mass index (BMI) [Ratio]38.4 kg/g0OeeiluorcOhiohealth Hardin Memorial Hospital02-12-2025 14:11-0500Body mvkejn800.93 kgOhiohealth Hardin Memorial Hospital12-12-2024 14:51-0500Body height 177.8 cmSteven Rusher DPM Work Phone: [facility] CenterMjuhrbslhj51-27-9596 14:51-0500Body mass index (BMI) [Ratio]36.88 kg/i4Qyiqgw Rusher DPM Work Phone: [facility] CenterRjhomhxtrm21-43-4085 14:51-0500Body .57 kgSteven Rusher DPM Work Phone: [facility] CenterRnomtmzjzc05-21-6002 07:38-0500Body .8 cmDank Campo MD Work Phone: [facility] CenterEmvkqixiso67-65-2980 07:38-0500Body mass index (BMI) [Ratio]36.88 kg/m2Dank Campo MD Work Phone: [facility] CenterLtqrmexkkj55-41-9388 07:38-0500Body temperature 97.11 [degF]Dank Campo MD Work Phone: [facility] CenterBknsffmefv15-69-5462 07:38-0500Body .57 kgDank Campo MD Work Phone: [facility] CenterJikkrvmkig47-98-6269 07:38-0500Diastolic blood mm[Hg]Dank Campo MD Work Phone: [facility] CenterHotkddyxvm55-45-0178 07:38-0500Heart vucf246 /min Dank Campo MD Work Phone: [facility] CenterLrwfdrtcdj03-82-6425 07:38-0500Respiratory rate18 /minDank Campo MD Work Phone: [place] [address]Ktwrjfbzuz65-66-0697 07:38-9537VcQ6% (BldA) [Mass fraction]97 %Dank Campo MD Work Phone: 1(933)971-[address] [place], [place] [address]Tzinxnwkul63-51-3059 07:38-0500Systolic blood mm[Hg]Dank Campo MD Work Phone: [facility] CenterNnuovvodie02-60-3515 10:46-0500Body ccohsh670.8 cmAllison Petznick DO Work Phone: [facility] CenterIptjvmmyye59-62-4334 10:46-0500Body mass index (BMI) [Ratio]35.61 kg/t1Mzjjycu Petznick DO Work Phone: 1(458)[facility] [place], [place] [address]Dsuqtpjoew63-32-6603 10:46-0500Body temperature 96.1 [degF]Ashli Petznick DO Work Phone: 1(171)[facility] [place], [place] [address]Qaunqsunyn14-19-9938 10:46-0500Body .58 kgAllison Petznick DO Work Phone: 1(940)[facility] [place], [place] [address]Ulmhbsevwr08-13-2841 10:46-0500Diastolic blood uvonaxao75 mm[Hg]Ashli Petznick DO Work Phone: 1(703)[facility] [place], [place] [address]Clfzhweglk57-99-0634 10:46-0500Heart rate84 /min Ashli Petznick DO Work Phone: 1(452)[facility] [place] [address]-12-2024 10:46-4474TmV0% (BldA) [Mass fraction]97 %Ashli Petznick DO Work Phone: 1(226)[facility] [place], [place] [address]Jtsuywstzq32-56-3049 10:46-0500Systolic blood xpatfwrb513 mm[Hg]Ashli Petznick DO Work Phone: 1(737)898-[address] [place], [place] [address]Shnovyflcx27-26-7968 09:08-0400Body rbdiwz776.26 cmOhio[facility]10-29-2024 09:08-0400Body mass index (BMI) [Ratio]36.1 kg/e6KlhwblxejOhiohealth Hardin Memorial Hospital10-29-2024 09:08-0400Body qughkn121.13 kgOhiohealth Hardin Memorial Hospital10-22-2024 10:00-0400Body height 177.8 cmMatalita FREY Work Phone: [facility] CenterCyymletnyt94-02-8564 10:00-0400Body mass index (BMI) [Ratio]35.73 kg/d3Mjikqgn Dias PA Work Phone: [facility] CenterAibigtlsjy87-15-7547 10:00-0400Body .95 kgMattbabakw Dias PA Work Phone: [facility] CenterHhnuqlqfsk72-44-7423 08:28-0400Body zycize607.8 cmMattiliana Dias PA Work Phone: noMiss[facility] CenterQswivqfmos05-57-9138 08:28-0400Body mass index (BMI) [Ratio]35.73 kg/y4Vddzbyk Arun PA Work Phone: [facility] CenterShpepqjorq10-92-8923 08:28-0400Body htpeug138.95 kgMattiliana Dias PA Work Phone: [facility] CenterGuqvikyxnz92-79-4303 10:19-0400Body cfxirt421.26 cmOhiohealth [facility] Hospital09-30-2024 10:19-0400Body mass index (BMI) [Ratio]37 kg/r9GeplqddagOhiohealth Hardin Memorial Hospital09-30-2024 10:19-0400Body weight 114 kgOhiohealth Hardin Memorial Hospital09-09-2024 10:29-0400Body rnmmyx559.3 cm Hanna Butcher MD Work Phone: [facility]09-09-2024 10:290400Body mass index (BMI) [Ratio]37.01 kg/y7XwrppxnHanna Butcher MD Work Phone: [facility]09-09-2024 10:29040Body qxgyqb356.67 kgHanna Butcher MD Work Phone: [facility]09-09-2024 10:29040Diastolic blood mm[Hg]Hanna Butcher MD Work Phone: [facility]09-09-2024 10:29040Heart rate 77 /minHanna Butcher MD Work Phone: [facility]09-09-2024 10:294004YpV3% (BldA) [Mass fraction]98 %Hanna Butcher MD Work Phone: [facility]09-09-2024 10:29-0400Systolic blood defxvmul775 mm[Hg]Hanna Butcher MD Work Phone: [facility]08-19-2024 11:45-0400Diastolic blood trfokowc79 mm[Hg]Peterson PETERSEN [facility]08-19-2024 11:45-0400Heart rate66 /minPatrick PETERSEN [facility]08-19-2024 11:45-0400Respiratory rate16 /minPatrick NICOLA [facility]08-19-2024 11:45-0400Systolic blood veclscst004 mm[Hg]Peterson PETERSEN [facility]06-27-2024 22:34-0400Body ydjfbe673.[address] [place] [address] 12-13-2023 22:34-0400Body mass index (BMI) [Ratio]36.77 kg/m2Bph [address] [place], [place] 1457106-27-2024 22:34-0400Body .[address] [place], [place] 1457102-28-2024 13:35-0500Diastolic blood zdgoswbm83 mm[Hg]Gregoria Ralph TRENCHER DRIVER-SPOUT TENDER Work Phone: [facility]02-28-2024 13:35-0500Systolic blood lkaciskm062 mm[Hg]Gregoria Ralph TRENCHER DRIVER-SPOUT TENDER Work Phone: [facility]02-28-2024 13:33-0500Body .3 cmStamyah Ralph TRENCHER DRIVER-SPOUT TENDER Work Phone: [facility]02-28-2024 13:33-0500Body mass index (BMI) [Ratio]36.77 kg/s3Jwgfhfbabs Ralph TRENCHER DRIVER-SPOUT TENDER Work Phone: [facility]02-28-2024 13:33-0500Body .95 kgStbabs Ralph TRENCHER DRIVER-SPOUT TENDER Work Phone: [facility]02-28-2024 13:33-0500Heart rate 81 /minStaciannamarie Ralph TRENCHER DRIVER-SPOUT TENDER Work Phone: [facility]02-28-2024 13:33-6983WnB5% (BldA) [Mass fraction]95 %Gregoriamyah Ralph TRENCHER DRIVER-SPOUT TENDER Work Phone: [facility]02-12-2024 11:16-0500Body vuynct645.8 cmAllison Petznick DO Work Phone: [facility] CenterWrqghmlugd80-48-5859 11:16-0500Body mass index (BMI) [Ratio]36.16 kg/w5Sdzblkb Petznick DO Work Phone: 1(884)860-[address] [place], [place] [address]Unwzqyrjjs31-60-4766 11:16-0500Body temperature 98.01 [degF]Ashli Petznick DO Work Phone: 1(489)[facility] [place], [place] [address]Dfluootygk53-59-3575 11:16-0500Body wvcwfo651.31 kgAllison Petznick DO Work Phone: 1(239)850-[address] [place], [place] [address]Levponbgac82-50-2501 11:16-0500Diastolic blood aycdiguq70 mm[Hg]Ashli Petznick DO Work Phone: 1(314)313-[address] [place], [place] [address]Nqhpgcphat50-81-6421 11:16-0500Heart rate66 /min Ashli Petznick DO Work Phone: 1(576)045-[address] [place], [place] [address]Hiqsqhvvvi75-80-6638 11:16-2257PqM2% (BldA) [Mass fraction]97 %Ashli Petznick DO Work Phone: 1(413)129-[address] [place], [place] [address]Fwjigssszw93-75-3267 11:16-0500Systolic blood anpodmmz940 mm[Hg]Ashli Petznick DO Work Phone: 1(606)328-[address] [place], [place] [address]Hgqrdbyzvs27-27-4198 09:22-0500Diastolic blood nkaaebip00 mm[Hg]MD Dank Campo Work Phone: 1(370)[address]01-30-2024 09:22-0500 Heart rate70 /minMD Dank Campo Work Phone: 1(242)[address]01-30-2024 09:22-0500 Respiratory rate18 /minMD Dank Campo Work Phone: 1(581)[address]01-30-2024 09:22-0500 SaO2% (BldA) [Mass fraction]97 %MD Dank Campo Work Phone: 1(532)[address]01-30-2024 09:22-0500 Systolic blood cuxpjxuh786 mm[Hg]MD Dank Campo Work Phone: 1(213)[address] [place], [place] 1293401-30-2024 09:20-0500 Body cdewes704.8 cmMD Dank Campo Work Phone: 1(593)[address] [place], [place] 1293401-30-2024 09:20-0500 Body abxidh993.13 kgMD Dank Campo Work Phone: 1(350)[address]11-10-2023 12:40-0500 Diastolic blood hduhiaup43 mm[Hg]MD Dank Campo Work Phone: 1(936)[address]11-10-2023 12:40-0500 Heart rate75 /minMD Dank Campo Work Phone: 1(674)[address]11-10-2023 12:40-0500 Respiratory rate16 /minMD Dank Campo Work Phone: 1(915)[address]11-10-2023 12:40-0500 SaO2% (BldA) [Mass fraction]97 %MD Dank Campo Work Phone: 1(643)[address]11-10-2023 12:40-0500 Systolic blood xtgslzpy224 mm[Hg]MD Dank Campo Work Phone: 1(889)[address]11-10-2023 10:29-0500 Body vkvipq886.8 cmMD Dank Campo Work Phone: [facility]11-10-2023 10:29-0500 Body aoofqh045.39 kgMD Dank Campo Work Phone: [facility]10-24-2023 14:00-0400 Body oqpjak348.8 cmImad Asaad Other [employer] Other 10-24-2023 14:00-0400Body mass index (BMI) [Ratio]36.3 kg/m2Imad Asaad Other [employer] Other 10-24-2023 14:00-0400Body rrqwoj442.76 kgImad Asaad Other [employer] Other 10-24-2023 14:00-0400Diastolic blood mm[Hg] Imad Asaad Other [employer] Other 10-24-2023 14:00-0400Systolic blood lcmskoeo509 mm[Hg] Imad Asaad Other [employer] Other 08-28-2023 09:46-0400Blood Pressure LocationPatrick PETERSEN [facility]08-28-2023 09:46-0400Diastolic blood tixvagoh67 mm[Hg]Peterson PETERSEN [facility]08-28-2023 09:46-0400Heart rate68 /minPatrick PETERSEN [facility]08-28-2023 09:46-0400Respiratory rate16 /minPatricdouglas PETERSEN [facility]08-28-2023 09:46-0400Systolic blood ejfstaex190 mm[Hg]Peterson PETERSEN [facility]02-06-2023 13:52-0500Diastolic blood yasrkjbj62 mm[Hg]MD Dank Campo Work Phone: [facility]02-06-2023 13:52-0500 Heart rate71 /minMD Dank Campo Work Phone: 1(759)847-[address] [place], [place] 7344202-06-2023 13:52-0500 Respiratory rate16 /minMD Dank Campo Work Phone: 1(483)787-[address] [place], [place] 7344202-06-2023 13:52-0500 SaO2% (BldA) [Mass fraction]96 %MD Dank Campo Work Phone: [facility]02-06-2023 13:52-0500 Systolic blood kgiydspe036 mm[Hg]MD Dank Campo Work Phone: [facility]02-06-2023 12:29-0500 Body yfbjni243.8 cmMD Dank Campo Work Phone: [facility]02-06-2023 12:29-0500 Body uxgaqwtrxjz74 [degF]MD Dank Campo Work Phone: [facility]02-06-2023 12:29-0500 Body yxkyoe714.66 kgMD Dank Campo Work Phone: [facility]02-02-2023 10:00-0500 Body ugyflm473.8 cmImad Asajamia Other [place] [employer] Other 02-02-2023 10:00-0500Body mass index (BMI) [Ratio] 36.73 kg/m2Imad Asaad Other [place] [employer] Other 02-02-2023 10:00-0500Body tpktyg271.12 kgImad Asaad Other [place] [employer] Other 02-02-2023 10:00-0500Diastolic blood puhcnhvr21 mm[Hg] [facility]ad [facility] Other 02-02-2023 10:00-0500Systolic blood mm[Hg] Imad [facility]ad [facility] [employer] Other 08-19-2022 08:29-0400Blood Pressure LocationPatricLiveStub [facility] Barb 08-19-2022 08:29-0400Diastolic blood utrtbkdp04 mm[Hg] Place[employer] [facility] Barb 08-19-2022 08:29-0400Heart rate75 /minPatricLiveStub [facility] [place] 08-19-2022 08:29-0400Respiratory rate16 /minPatrick Salemarked [facility] [place] 08-19-2022 08:29-0400Systolic blood axbsczyg386 mm[Hg] Peterson Salemarked [facility] Barb Encounters Encounter DateEncounter [facility] ProviderFacilityStart: 28-38-1236ppwosbhkfr Peterson Owens WATERSFacility:EU BellevueStart: 84-90-3084kmdppggpacTbowqkm Graciela NICOLA [facility]Start: 99-65-0497orvdenuqsuZzljdsq Graciela [facility]: [place]vueStart: 04-29-2025 End: 10-58-4797Kyhjmv Zachary Matthew MD Work Phone: NOCT [facility] EndocrinologyStart: 04-29-2025 End: 49-51-2001Ollatzjavad Matthew MD Work Phone: NOWP [facility] EndocrinologyStart: 04-29-2025 End: 00-31-9554Sgaqnl outpatient visit 25 minutesAhsri Matthew MD Work Phone: NOHF Adam EndocrinologyComment on above:Type 2 diabetes mellitus with hyperglycemia, without long-term current use of insulin (HCC) (Primary Dx); Primary hypertension; Hyperlipemia, mixed; Encounter for dietary consultation; Class 2 severe obesity due to excess calories with serious comorbidity and body mass index (BMI) of38.0 to 38.9 in adult; Stage 3b chronic kidney disease ([facility]-HCC)Start: 04-29-2025 End: 63-91-6202bnieudmgwfZZLKJLinda Pierre AvailableStart: 03-05-2025 End: 53-40-4352Phgzkv Lucy KothariMedica Physicians Pulmonary/Sleep MedicineComment on above:FRANK (obstructive sleep apnea) (Primary Dx)Start: 02-23-2025 End: 14-05-9383Btxzge Tasia FREY Work Phone: [facility]opaedicsStart: 02-23-2025 End: 10-75-6983Dblxhh Tasia FREY Work Phone: [facility] OrthopaedicsStart: 02-23-2025 End: 86-41-5449cschbtkretCUZPEMW J MEYERNot AvailableStart: 02-23-2025 End: 89-16-7813Uwkafl outpatient visit 15 minutesMatalita FREY Work Phone: noms Adam OrthopaedicsComment on above:Acute pain of right knee (Primary Dx); Arthritis of right kneeStart: 02-09-2025 End: 45-52-8142kvbhjkomqqHrdwjxy R WATERSFacility:FTMCStart: 02-09-2025 End: 38-06-5195Naajvjo encounter procedurePeterson PETERSEN [facility] start: 02-03-2025 End: 79-56-7174Htourtzsr Result EncounterGeneric External Data ProviderNOMS External Department UnsolicitedStart: 02-03-2025 End: 60-58-7858Tpgaccffx Result EncounterGeneric External Data ProviderNOMS External Department UnsolicitedStart: 02-02-2025 End: 00-74-5423Mkxjpdrud encounterRoxanne E JwProMedica Physicians Pulmonary/Sleep MedicineStart: 01-28-2025 End: 42-53-9908Tjeevs Zachary Matthew MD Work Phone: [facility] EndocrinologyStart: 01-28-2025 End: 30-29-8226Kpauflwaldemar Matthew MD Work Phone: noms [facility] EndocrinologyStart: 01-28-2025 End: 64-61-6292Prlfzq outpatient new 45 minutesDeb Matthew MD Work Phone: noms Adam EndocrinologyComment on above:Type 2 diabetes mellitus with hyperglycemia, with long-term current use of insulin (HCC) (Primary Dx); Primary hypertension ; Insulin long-term use (HCC); Hyperlipemia, mixed ; Encounter for dietary consultation; Class 2 severe obesity due to excess calories with serious comorbidity and body mass index (BMI) of38.0 to 38.9 in adult ([facility]-HCC); Stage 3b chronic kidney disease (CMS-HCC); Type 2 diabetes mellitus with diabetic polyneuropathy, with long-term current use of insulin (HCC)Start: 01-28-2025 End: [id number] Kandice Ignacio AvailableStart: 12-23-2024 End: [id number] Alber RAYMUNDO Work Phone: [facility] Work Phone: Start: 12-23-2024 End: 45-49-0658Zkydyof encounter Yariel Scott [facility] Work Phone: Start: 12-02-2024 End: 60-51-7485kctodpcsgmUKRTVVX [facility]: 12-02-2024 End: 72-33-0851Unmmao outpatient visit 15 minutesHanna Butcher MD Work Phone: [facility] Pulmonary/Sleep MedicineComment on above:SOB (shortness of breath) (Primary Dx); Personal history of tobacco use, presenting hazards to health; Obstructive sleep apnea syndromeStart: 11-17-2024 End: 77-51-8488jdhnxkulloQVMM NADERESSM Health [facility] HospitalStart: 10-27-2024 End: 04-14-2300Sijtmm outpatient visit 15 minutesHanna Butcher MD Work Phone: [facility] Pulmonary/Sleep MedicineComment on above:SOB (shortness of breath) (Primary Dx)Start: 10-27-2024 End: 67-30-2213cgzdnhnrcoLREVOEC E WILLIAMSUniversity [facility] Start: 10-21-2024 End: 84-36-1461Sdlcrlrrh encounterSclaudia Lee Physicians Pulmonary/Sleep MedicineStart: 09-24-2024 End: 48-31-3415pcfuvluqrzQZNMMK A RUSHERNot AvailableStart: 09-24-2024 End: 24-12-8586Twqjqz outpatient visit 15 minutesDexter Krishnamurthy DPM Work Phone: NOMS PODIATRYComment on above:Diabetic polyneuropathy associated with type 2 diabetes mellitus (CMS/HCC) (Primary Dx); Encounter for long-term (current) use of insulin ([facility]); Chronic painful diabetic neuropathy ([facility]); 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Start: 2024 End: 71-86-2243qkzqsyecybQglg Naderer MD Work Phone: [facility] Work Phone: Start: 2024 End: 50-56-3757Swxjukk encounter procedureDank Campo MD Work Phone: [facility] Work Phone: Start: 08-04-2024 End: 93-92-2393tinezvefysWxrwuiqRaffy Lopez MDFacility:[facility] [place] Start: 07-31-2024 End: 53-86-2850rsapaokmgmROHQKBN M PETZNICKNot AvailableStart: 07-31-2024 End: 61-74-0578Gbyflq outpatient visit 25 minutesAshli Rsos DO Work Phone: [facility] SWS FM 230Comment on above:Class 2 severe obesity due to excess calories with serious comorbidity and body mass index (BMI) of 37.0 to 37.9 in adult (CMS/[facility]) (Primary Dx); Type 2 diabetes mellitus with diabetic polyneuropathy, with long-term current use of insulin (CMS/[facility]); Type 2 diabetes mellitus with stage 3b chronic kidney disease, with long-term current use of insulin (HCC) (CMS/[facility]); Type 2 diabetes mellitus with hyperglycemia, with long-term current use of insulin ([facility])Start: 07-30-2024 End: 70-10-6084amnwjctcirAqjk Naderer MD Work Phone: [facility] Work Phone: Start: 07-30-2024 End: 41-78-6799Herdgxo encounter procedureFormerly [facility] Work Phone: Start: 07-23-2024 End: 25-01-1250Dymzvv Tasia FREY Work Phone: noms FB ORTHOPAEDICSStart: 07-23-2024 End: 01-08-9594Nayslb flowsNoreenaubrieiliana Cornell Arun FREY Work Phone: noms FB ORTHOPAEDICSStart: 07-23-2024 End: 20-18-3583imbaqcjbqxWARIUZN J ARUNNot AvailableStart: 07-23-2024 End: 74-13-4244Bpdllr follow up visit related to original pxTishiliana Cornell Arun FREY Work Phone: noms FB ORTHOPAEDICSComment on above:S/P arthroscopy of left shoulder (Primary Dx)Start: 07-21-2024 End: 67-60-6389Tprqxf flowsheetKaden Hickman PTANOMS CI PTStart: 07-21-2024 End: 62-42-3362Pwmxjz flowsheetKaden Hickman PTANOMS CI PTStart: 07-21-2024 End: 15-57-4463npaljfsmzoYowplkw Vytautas Giedraitis MDFacility:[facility] Start: 07-14-2024 End: 79-58-9188emullejycwDediach Vytautas Giedraitis MDFacility:[facility] [place] Start: 07-07-2024 End: 56-36-0707Tzaezj flowsheetMaureen Thompson PTANOMS CI PTStart: 07-07-2024 End: 92-01-5035Cowbrw flowsheetMaureen Thompson PTANOMS CI PTStart: 07-07-2024 End: 52-33-3471ujsdwzkieoXqegvwpt Brink PTANOMS CI PTComment on above:Left shoulder pain, unspecified chronicity (Primary Dx); S/P arthroscopy of left shoulderStart: 07-03-2024 End: 07-53-3860Vepcaudjw Result EncounterGeneric External Data ProviderNOMS External Department UnsolicitedStart: 07-03-2024 End: 47-46-7404Wfrqrotmp Result EncounterGeneric External Data ProviderNOMS External Department UnsolicitedStart: 07-01-2024 End: 15-17-8622Bscyeh flowsheetSarthurntha Berkowitz PTNOMS CI PTStart: 07-01-2024 End: 68-16-4088Wkcieg flowsheetSammantha Berkowitz PTNOMS CI PTStart: 07-01-2024 End: 20-35-6595fnqxwmfwufYgsrqhetx Berkowitz PTNOMS CI PTComment on above:Left shoulder pain, unspecified chronicity (Primary Dx); S/P arthroscopy of left shoulderStart: 06-26-2024 End: 95-82-9365Lfbrtz Amanda Hickman PTANOMS CI PTStart: 06-26-2024 End: 32-83-3969Lzgshh Amanda Hickman PTANOMS CI PTStart: 06-26-2024 End: 01-48-9340veclavilswKcgvkfd Lawrence PTANOMS CI PTComment on above:Left shoulder pain, unspecified chronicity (Primary Dx); S/P arthroscopy of left shoulderStart: 06-25-2024 End: 69-16-6718rziiordymlMWWKZVO J MEYERNot AvailableStart: 06-25-2024 End: 79-97-3060Jninas follow up visit related to original Zack Dias PA Work Phone: noms FB ORTHOPAEDICSComment on above:S/P arthroscopy of left shoulder (Primary Dx)Start: 06-24-2024 End: 03-04-5624lyyyzrytjrRicspwwyd Berkowitz PTNOMS CI PTComment on above:Left shoulder pain, unspecified chronicity (Primary Dx); S/P arthroscopy of left shoulderStart: 06-20-2024 End: 99-18-6057idyklnzcsyItkduk J Evans PT Work Phone: noms CI PTComment on above:Left shoulder pain, unspecified chronicity (Primary Dx); S/P arthroscopy of left shoulderStart: 06-16-2024 End: 64-22-1860gjjkcgdktaGggribyhi Berkowitz PTNOMS CI PTComment on above:Left shoulder pain, unspecified chronicity (Primary Dx); S/P arthroscopy of left shoulderStart: 06-12-2024 End: 13-13-9814zlswqzjsnvPgspmcwjo Berkowitz PTNOMS CI PTComment on above:Left shoulder pain, unspecified chronicity (Primary Dx); S/P arthroscopy of left shoulderStart: 06-07-2024 End: 13-55-2529Xplptmlcf encounterRebecca FREY Work Phone: noms CI ORTHOPAEDICSStart: 06-05-2024 End: 67-72-4198wmuzxffwkzJdeshpj Petr PTANOMS CI PTComment on above:Left shoulder pain, unspecified chronicity (Primary Dx); S/P arthroscopy of left shoulderStart: 06-03-2024 End: 67-31-5340Rymhzwpjl encounterDank Campo MD Work Phone: noms CWM FMStart: 06-02-2024 End: 46-87-5041Tiqkut Amanda Hickman PTANOMS CI PTStart: 06-02-2024 End: 53-46-4532Gzrgrn Amanda Hickman PTANOMS CI PTStart: 06-02-2024 End: 06-95-0678bufkwafhspXmkkwxi Lawrence PTANOMS CI PTComment on above:Left shoulder pain, unspecified chronicity (Primary Dx); S/P arthroscopy of left shoulderStart: 05-29-2024 End: 28-15-5433Eqashj outpatient visit 25 Hemanth Krishnamurthy DPM Work Phone: noms FH PODIATRYComment on above:Contusion of left foot, initial encounter (Primary Dx); Pain in left foot; Diabetic polyneuropathy associated with type 2 diabetes mellitus (CMS/HCC); Encounter for long-term (current) use of insulin (CMS/HCC)Start: 05-29-2024 End: 29-29-8219Ukrhea Lucia Simon PT Work Phone: noms CI PTStart: 05-29-2024 End: 08-11-3443Pyibon Lucia Simon PT Work Phone: noms CI PTStart: 05-29-2024 End: 27-33-4582ldofsgfsyyScqrwdJovany Simon PT Work Phone: NOM[facility] CI PTComment on above:Left shoulder pain, unspecified chronicity (Primary Dx); S/P arthroscopy of left shoulderStart: 05-28-2024 End: 79-44-5166Wjkntp Mickey Campo MD Work Phone: noms CWM FMStart: 05-28-2024 End: 54-20-4470Xahyjv Mickey Campo MD Work Phone: NOBK CWM FMStart: 05-28-2024 End: 47-90-0396Uamqhg outpatient visit 25 minutesDank Campo MD Work Phone: noms CWM FMComment on above:Benign essential hypertension (CMS/HCC) (Primary Dx); JARAD (generalized anxiety disorder) (CMS/HCC); Lumbar spondylosis; Type 2 diabetes mellitus with diabetic polyneuropathy, with long-term current use of insulin (CMS/HCC); Type 2 diabetes mellitus with stage 3b chronic kidney disease, with long-term current use of insulin (HCC) (CMS/HCC)Start: 05-28-2024 End: 40-93-6679pfholzudakYAIO NADERERLainey AvailableStart: 05-26-2024 End: 98-46-2341Kupplf Amanda Hickman PTANOMS CI PTStart: 05-26-2024 End: 03-47-1928Uunseq Amanda Hickman PTANOMS CI PTStart: 05-26-2024 End: 78-10-0627ripikvkyhgVockduw Lawrence PTANOMS CI PTComment on above:S/P arthroscopy of left shoulder (Primary Dx); Left shoulder pain, unspecified chronicityStart: 05-19-2024 End: 37-37-3400dcewiaoszvAjqrgcp Lawrence PTANOMS CI PTComment on above:S/P arthroscopy of left shoulder (Primary Dx)Start: 05-13-2024 End: 10-31-3708pfiuuuswllVZGUXNPDG SCHNEIDERNot AvailableStart: 05-13-2024 End: 22-92-8738zvudwvhddeSedxjxhry Berkowitz PTNOMS CI PTComment on above:S/P arthroscopy of left shoulder (Primary Dx)Start: 05-12-2024 End: 92-79-9505Mptzhkfad encounterJamesyunier Simon PT Work Phone: NOPV CI PTComment on above:PO PT Eval (Tried to contact to schedule PO PT Eval for L shoulder scope, that was on 04/25; requested a call back dolores.); Call Back (He contacted and we scheduled PT Eval 05/13 and then continued out2x/2's a week up to 06/05/24.)Start: 05-09-2024 End: 71-23-5567Vdgiun Tasia FREY Work Phone: noms FB ORTHOPAEDICSStart: 05-09-2024 End: 80-76-2688Npsohu Tasia FREY Work Phone: noms FB ORTHOPAEDICSStart: 05-09-2024 End: 17-62-0102Sthmko follow up visit related to original Zack FREY Work Phone: noms FB ORTHOPAEDICSComment on above:S/P arthroscopy of left shoulder (Primary Dx)Start: 05-09-2024 End: 21-81-5053hhhfcgblyqAMSDPBH J MEYERNot AvailableStart: 04-29-2024 End: 81-55-1152Egsqwp outpatient visit 25 minutesAshli Ross DO Work Phone: NOHJ SWS FM 230Comment on above:Class 2 severe obesity due to excess calories with serious comorbidity and body mass index (BMI) of 35.0 to 35.9 in adult (CMS/HCC) (Primary Dx); Type 2 diabetes mellitus with diabetic polyneuropathy, with long-term current use of insulin (CMS/HCC); Type 2 diabetes mellitus with stage 3a chronic kidney disease, with long-term current use of insulin (HCC) (CMS/HCC); Long-term insulin use (CMS/HCC)Start: 04-24-2024 End: 20-89-3772EhblqaAuamd T Olsen CORROSION CONTROL ENGINEER Work Phone: noms FB ORTHOPAEDICSComment on above:Internal derangement of left shoulder (Primary Dx)Start: 04-23-2024 End: 06-36-0417Tzolicwku encounterDank Campo MD Work Phone: noms CWM FMStart: 04-21-2024 End: 08-63-2042nmxzmvmxaeJuasmxu Vytautas Gieditis Facility:[facility] Start: 04-18-2024 End: 22-57-3426Diufwukqi Result EncounterGeneric External Data ProviderNOMS External Department UnsolicitedStart: 04-18-2024 End: 21-81-7359Rwzxwzujc Result EncounterGeneric External Data ProviderNONC External Department UnsolicitedStart: 04-15-2024 End: 68-59-6041vtyanfqppnWkjsjydhfTrinity [facility] Work Phone: Start: 04-15-2024 End: 16-88-3750Cztoigx encounter procedureFormerly [facility] Work Phone: Start: 04-08-2024 End: 46-64-8315Mrczqq flowsheetRebecca FREY Work Phone: noms FB ORTHOPAEDICSStart: 04-08-2024 End: 23-34-2463Nfhsss flowsKyaw FREY Work Phone: noms FB ORTHOPAEDICSStart: 04-08-2024 End: 63-97-0090Dbfsmfk encounter procedureRebecca FREY Work Phone: noms FB ORTHOPAEDICSComment on above:Pre-op examination (Primary Dx); Preop examinationStart: 04-08-2024 End: 75-45-5858Rqwtdgdjwwhar examination doneMatalita FREY Work Phone: [facility] Work Phone: Start: 03-24-2024 End: 25-77-6638FdviimNboou T Olsen NP Work Phone: NOMS FB ORTHOPAEDICSComment on above:Internal derangement of left shoulder (Primary Dx)Start: 03-18-2024 End: 11-61-6707Qipfir flowsheetRebecca FREY Work Phone: NOUK FB ORTHOPAEDICSStart: 03-18-2024 End: 55-36-9230Fztjrz flowsheetMatalita FREY Work Phone: noms FB ORTHOPAEDICSStart: 03-18-2024 End: 58-91-6806Zauesvek Result EncounterMatalita FREY Work Phone: NONW External Department UnsolicitedStart: 03-18-2024 End: 78-17-1354Fseemi OnlyMatalita FREY Work Phone: [phone]-WOBB ATLASComment on above:Encounter for other preprocedural examinationStart: 03-18-2024 End: 65-47-9850Sutfwmi encounter statusMatalita FREY Work Phone: [facility] SystemStart: 03-18-2024 End: 24-45-8554Kbyislrqg encounterMatalita FREY Work Phone: noms CI ORTHOPAEDICSStart: 03-18-2024 End: 65-39-1231qwrmnmpluwXTWJAvita Health System Galion Hospitaltart: 03-18-2024 Encounter for other preprocedural examinationAvita Health System Galion Hospitaltart: 03-18-2024 End: 41-63-2650Hkihgxl encounter procedureMatalita FREY Work Phone: noms FB ORTHOPAEDICSComment on above:Preop examination (Primary Dx)Start: 03-18-2024 End: 16-99-0918Sklcdcwbxijqs examination doneMatalita FREY Work Phone: NOZW HealthcareStart: 03-17-2024 End: 24-47-1442Vcdkaogmf encounterAshli Ross DO Work Phone: [facility] SWS FM 230Start: 03-17-2024 End: 13-85-1008audeekvtyxLsznvxktyTrinity Health [facility] Work Phone: Start: 03-17-2024 End: 44-65-6746Dlmbjmc encounter procedureFormerly [facility] Gastroenterology Work Phone: Start: 03-12-2024 End: 06-52-0785dxaxzbhrjhJVMKBlanchard Valley Health System [facility] Hospitaltart: 03-10-2024 End: 26-42-4615mjjqrdvlizFmzdcdw Vytautas Giedraitis Facility:[facility] [place] Start: 03-03-2024 End: 15-67-0309Lvouvp outpatient visit 25 minutesJr. Bassem Hdez DO Work Phone: noms FB ORTHOPAEDICSComment on above:Internal derangement of left shoulder (Primary Dx); Acute pain of left shoulderStart: 03-03-2024 End: 89-95-1247Ngxpbk flowsheetJr. Bassem Hdez DO Work Phone: noms FB ORTHOPAEDICSStart: 03-03-2024 End: 80-70-7067Jflvyt flowsheetJr. Bassem Hdez DO Work Phone: noms FB ORTHOPAEDICSStart: 02-28-2024 End: 90-74-9752Tdmzsphlx encounterHanna Butcher MD Work Phone: [facility] Pulmonary/Sleep MedicineStart: 02-25-2024 End: 51-82-5438Aftvtq outpatient visit 15 minutesHanna Butcher MD Work Phone: [facility] Pulmonary/Sleep MedicineComment on above:Obstructive sleep apnea syndrome (Primary Dx); Personal history of tobacco use, presenting hazards to healthStart: 02-25-2024 End: 11-60-5867cntqwoddrvJJBWULJ E WILLIAMSUniversity [facility] Start: 02-04-2024 End: 73-30-0790Dqjsecdjv encounterStemagalie Krishnamurthy DPM Work Phone: noms PODIATRYComment on above:Advice Only (Self Pay Shoes)Start: 02-04-2024 End: 00-13-5964Lksvyer encounter procedurePeterson Owens PETERSEN [facility] start: 01-28-2024 End: 87-37-2165Hdhmpfk encounter procedurePeterson PETERSEN [facility] start: 01-03-2024 End: 24-48-5065Nyzuykjvv encounterOskar Contreras MD Work Phone: [facility] Pulmonary/Sleep MedicineStart: 12-13-2023 End: 42-35-8940vfnapgwjioEKLTMV L KREGELTriHealth Health SystemComment on above: Obstructive sleep apnea syndrome; CSA (central sleep apnea)Start: 12-06-2023 End: 57-90-7304Ffikak OnlyStselect specialty hospital - camp hillannamarie Ralph TRENCHER DRIVER-SPOUT TENDER Work Phone: [facility] Pulmonary/Sleep MedicineComment on above:Obstructive sleep apnea syndrome (Primary Dx)Start: 12-05-2023 End: 28-81-6006Btmvmaktq encounterRoxanne E EyalainProMedica Physicians Pulmonary/Sleep MedicineStart: 11-05-2023 End: 83-64-9844ezkyzfjzupXgdovjq Vytautas Giedraitis MDFacility:[facility] [place] Start: 10-30-2023 End: 82-60-4288weiwcyohciPaciu E CarrollFacility:[facility] Hospitaltart: 10-15-2023 End: 11-79-3218dnbezwepvsAwwcunx Vytautas Giedraitis MDFacility:[facility] [place] Start: 10-01-2023 End: 99-81-6139hiabtvdicsQutvyam Vytautas Giedraitis MDFacility:[facility] Start: 15-97-0771Hsbnevlil encounterRoxanne E LafountainProMedica Physicians Pulmonary/Sleep MedicineStart: 08-22-2023 End: 81-63-0259horalsxalfYbhr NadererFacility:[facility] Start: 08-20-2023 End: 74-24-9430qngddlgemmWpbv NadererFacility:[facility] Start: 36-92-4726Axfjsjosr encounterStaciannamarie Ralph TRENCHER DRIVER-SPOUT TENDER Work Phone: [facility] - Sleep DisordersComment on above:Sleep Lab (CPAP)Start: 08-15-2023 End: 44-84-5050Hawngc outpatient visit 25 minutesStaciannamarie Ralph TRENCHER DRIVER-SPOUT TENDER Work Phone: [facility] Pulmonary/Sleep MedicineComment on above:Personal history of tobacco use, presenting hazards to health (Primary Dx); Obstructive sleep apnea syndrome; CSA (central sleep apnea)Start: 08-09-2023 End: 19-51-9886Zyfagqf encounter procedureMD Dank Washingtondano Work Phone: [facility] Pkp-M[facility] Work Phone: Start: 08-09-2023 End: 53-12-5026cwmimirwlkVF Dank Webstergraciela Work Phone: [facility] Work Phone: Start: 36-60-3800Dklhnorex encounterRoxrichard KothariMedica Physicians Pulmonary/Sleep MedicineStart: 62-86-7389Htmcc abstractingJr. Bassem Hdez DO Work Phone: NOAZ CI ORTHOPAEDICSStart: 07-30-2023 End: 92-43-5198Sokyel outpatient visit 25 minutesAshli Ross DO Work Phone: NODC SWS FM 230Comment on above:Class 2 severe obesity due to excess calories with serious comorbidity and body mass index (BMI) of 36.0 to 36.9 in adult ([facility]) (Primary Dx); Type 2 diabetes mellitus with diabetic polyneuropathy, with long-term current use of insulin ([facility])Start: 07-24-2023 End: 63-87-5977Qhlykhv encounter procedureMD Dank Campo Work Phone: [facility]-XRay Main [place] Work Phone: Start: 07-17-2023 End: 54-53-5451agfvoglcwrOT Dank Campo Work Phone: [facility] Work Phone: Start: 07-17-2023 End: 13-32-2367Twqouyd encounter procedureMD Dank Campo Work Phone: [facility]-MRI Main [place] Work Phone: Start: 06-26-2023 End: 07-77-0565ktqyloyrypCX Dank Campo Work Phone: [facility] Work Phone: Start: 06-26-2023 End: 22-62-7164Ssilvaa encounter procedureMD Dank Felixdano Work Phone: [facility]-MRI [address] Work Phone: Start: 04-27-2023 End: 67-13-3629Nyjsxjeoi to same day surgery centerMD Dank Campo Work Phone: [facility]-Digestive [facility] Work Phone: Start: 04-27-2023 End: 08-90-1163jmbowvglzgEE Dank Campo Work Phone: [facility] Work Phone: Start: 04-16-2023 End: 92-09-8053Exoayfnly Result EncounterDank Campo MD Work Phone: noms External Department UnsolicitedStart: 04-16-2023 End: 32-33-0791Rtteaozof Result EncounterDank Campo MD Work Phone: noms External Department UnsolicitedStart: 04-10-2023 End: 25-03-7326cjkpagctlgGlyn Asaad Other noInformaat MDCapsule Other Start: 87-10-8475Hwwvft outpatient new 45 minutesImad AsaadFPG GastroenterologyStart: 03-20-2023 End: 72-06-6344qgynydokinBrgx Asaad Other noInformaat MDCapsule Other Start: 03-56-9774Gcajjqgol encounterImad AsaadFPG GastroenterologyStart: 02-12-2023 End: 81-94-1028Pepvjkk encounter procedurePatodd PETERSEN [facility] start: 02-06-2023 End: 00-32-3586Dlo Drop offJENNIFER E JINA [facility] Start: 02-06-2023 End: 88-04-7107Mjclgys encounter procedureDEJUAN PETERSEN [facility] start: 10-17-2022 End: 68-20-4531jsjiyvmlhsRV DANK A NADERERFacility:V7Dnzcn: 09-20-2022 End: 28-20-8619rbannfzahzVgkv Asaad Other noInformaat MDCapsule Other Start: 58-69-0559Tottzbacm encounterImad AsaadFPG GastroenterologyStart: 09-14-2022 End: 14-30-5515uhmhfioimeST DANK A NADERERFacility:J9Ztozk: 09-12-2022 End: 48-25-2803exmhziyfrpGF DANK A NADERERFacility:I8Rbwdo: 86-27-5799Izrffclcm encounterImad AsaadFPG GastroenterologyStart: 07-24-2022 End: 26-64-5936Ucwrecoxt to same day surgery centerMD Dank Campo Work Phone: [facility]-Dig[facility] Work Phone: Start: 07-24-2022 End: 65-55-5471uylotlapbhYK Dank Campo Work Phone: [facility] Work Phone: Start: 07-20-2022 End: 16-65-5374cnhpczbeypXzxz Asaad Other [place] MDCapsule Other Start: 96-93-2274Ojkiszg encounter procedureImad Asaad FPG GastroenterologyStart: 05-10-2022 End: 59-07-4950lltqlhwnskSL DANK Edward DORCASRFacility:T8Lgeyy: 04-14-2022 End: 23-87-0798cpjndgwaskVQ SORIN CAMARGOFacility:J1Rvyeb: 02-03-2022 End: 20-80-2638Mlawwzp encounter procedurePatodd PETERSEN [facility] start: 01-30-2022 End: 89-15-3176swvtwbkkenCQ REBECCA DIAS .Facility:F1Qutbz: 01-27-2022 End: 47-29-8169bmuwimnqqhFR PETERSON PETERSEN .Facility: Procedures DateProcedureProcedure DetailPerforming ClinicianStart: 23-64-2411Bnqt bld gluc mntr dev cleared fda spec home useDeb Matthew MD Work Phone: Start: 23-36-5022Abymilires examination knee 1/2 views Rebecca FREY Work Phone: Start: 96-43-3510GRZ LIPID PROFILE (FASTING)Generic External Data ProviderStart: 40-39-8843KEX RENAL FUNCTION PANELGeneric External Data ProviderStart: 86-05-4913GPN MICROALB CREAT RATIO RANDOMGeneric External Data ProviderStart: 92-02-8795Otuh bld gluc mntr dev cleared fda spec home use Deb Matthew MD Work Phone: Start: 98-45-5614Dtlcajdehj glycosylated c8uSosybsmrafa Ross DO Work Phone: Start: 66-80-7956Tnjcmi abdominal X-rayMarc Alber RAYMUNDO Work Phone: Start: 81-00-7791Jzntwtcrdi exam knee complete 4/more viewsGeneric External Data ProviderStart: 04-43-8310Xgslp foot complete minimum 3 viewsSteven Edward Krishnamurthy DPM Work Phone: Start: 45-60-5099Aqjufugqcw glycosylated m5bTycnjqeAshli Ross DO Work Phone: Start: 39-70-7435DUS CBC WITH AUTO DIFFGeneric External Data ProviderStart: 03-49-1509Tknuviui blood count with white cell differential, automatedMatalita FREY Work Phone: Start: 74-38-5813Eojizy-up visitFollow-upKATSHAUNA BUTCHERStart: 51-67-5825Oswcbpqdnp glycosylated q0rVnjwckqAshli Ross DO Work Phone: Start: 38-30-0352GU of left shoulder with contrastMD Dank Campo Work Phone: Start: 04-27-2023 End: 42-83-7671UmkbafhnycoAD Dank Campo Work Phone: Start: 17-21-6056OZ LUMBAR SPINE 2 OR 3VMarc Alber RAYMUNDO Work Phone: Start: 33-46-7514UkgbzrntqpgwunkvyarcbmktvlAG Dank Campo Work Phone: Start: 54-43-0858Kzfsezgccefj cholecystectomyPatrick PETERSEN Start: 63-12-3824IjgpmakkbmhAaxchul Meyer PA Work Phone: Start: 49-01-0553Rphjjrrvf (physical force)Peterson PETERSEN Comment on above:12/08/2019 - - 01/16/2020Start: 46-39-1129Geugdjrduza biopsy of prostate using ultrasound guidancePeterson PETERSEN Start: 83-33-7996Fzbrnsjenyi biopsy of prostate using ultrasound guidancePeterson PETERSEN appendectomyPeterson PETERSEN ColonoscopyPeterson PETERSEN History of repair of musculotendinous cuff of shoulder H/O rotator cuff surgeryMD Dank Webstergraciela Work Phone: Comment on above:x3 right, x1 leftPartial repair of rotator cuffPeterson PETERSEN TonsillectomyPeterson PETERSEN Plan of Treatment DateCare ActivityDetailAuthorStart: 13-98-6909Zbfirvhvb for malignant neoplasm of colonNOMS HealthcareStart: 87-08-4174POyR,Tdap and Td Vaccines (3 - Td or Tdap)DTaP,Tdap and Td Vaccines (3 - Td or Tdap)[facility] SystemStart: 90-29-0605UZsR,Tdap and Td Vaccines (4 - Td or Tdap)DTaP,Tdap and Td Vaccines (4 - Td or Tdap)[facility] SystemStart: 30-63-0386Hwuclnqwc for malignant neoplasm of colonNOMS HealthcareStart: 00-19-8430Zpqwcxxc screeningDiabetes: Retinopathy ScreeningNOMS HealthcareStart: 87-62-8806Pzcqv screening for protein Diabetes: Urine Protein ScreeningNOMS HealthcareStart: 97-04-9139Rrapn BMI ScreeningAdult BMI ScreeningGlenbeigh Hospital SystemStart: 94-96-6031Yddvyra ScreeningTobacco ScreeningProWilson Memorial Hospitalca [facility] SystemStart: 73-05-5242Zxubuxdp screeningDiabetes: Retinopathy ScreeningNOMS HealthcareStart: 05-25-2025 End: 61-06-0825Elkhbcr encounter nkscwjmoq01/08/2025 9:45 AM EST Office Visit [facility] [address] [place] [address] Hanna Butcher MD [id number] [address] [address] [facility] MedicineStart: 53-36-9315Uceaqtzzoo A1c measurementDiabetes: Hemoglobin Y7YTEWK HealthcareStart: 04-29-2025 End: 50-09-6737Yborecv encounter procedureNONC [place] EndocrinologyComment on above:Type 2 diabetes mellitus with hyperglycemia, without long-term current use of insulin (HCC)Start: 03-09-2025 End: 98-41-4277Tsrhbwp encounter rcqgxkcon40/22/2025 9:00 AM EDT Office Visit [facility] [address] [place] [address] Hanna Butcher MD [address] [address] [facility] Pulmonary/Sleep MedicineStart: 43-81-7501Xvarj BMI ScreeningAdult BMI Screening [facility] SystemStart: 25-62-3635Owiadlk ScreeningTobacco Screening [facility] SystemStart: 32-56-4651HVVBQ-19 Vaccine () COVID-19 Vaccine ()[facility] HealthcareStart: 62-18-4126NHRBY-19 Vaccine ()COVID-19 Vaccine ()[facility] SystemStart: 53-74-6218Gfqxtdvhs vaccinationGlenbeigh Hospital SystemStart: 01-28-2025 End: 284061-doperlfkdtqobs D3 [Mass/volume] in Serum or PlasmaVitamin D 25 hydroxy Total Lab Routine Type 2 diabetes mellitus with hyperglycemia, with long-term current use of insulin (HCC) Expected: 01/28/2025 (Approximate), Expires: 01/28/2026[facility] HealthcareComment on above:Expected: 01/28/2025 (Approximate), Expires: 01/28/2026Start: 01-28-2025 End: 41-85-9440W-peptideC-peptide Lab Routine Type 2 diabetes mellitus with hyperglycemia, with long-term current use of insulin (HCC) Expected: 01/28/2025 (Approximate), Expires: 01/28/2026[facility] Work Phone: Comment on above:Expected: 01/28/2025 (Approximate), Expires: 01/28/2026Start: 01-28-2025 End: 54-33-0095Skube 1996 panel - Serum or PlasmaLipid panel Lab Routine Type 2 diabetes mellitus with hyperglycemia, with long-term current use of insulin (HCC) Expected: 01/28/2025 (Approximate), Expires: 01/28/2026[facility] Comment on above:Expected: 01/28/2025 (Approximate), Expires: 01/28/2026Start: 01-28-2025 End: 16-74-2007Vmmbgmbroult/Creatinine panel in random UrineMicroalbumin / creatinine urine ratio Lab Routine Type 2 diabetes mellitus with hyperglycemia, withlong-term current use of insulin (HCC) Expected: 01/28/2025 (Approximate), Expires: 01/28/2026[facility] HealthcareComment on above:Expected: 01/28/2025 (Approximate), Expires: 01/28/2026Start: 01-28-2025 End: 61-29-5597Hngmb function panelRenal function panel Lab Routine Type 2 diabetes mellitus with hyperglycemia, with long-term current use of insulin (HCC) Expected: 01/28/2025 (Approximate), Expires: 01/28/2026[facility] Comment on above:Expected: 01/28/2025 (Approximate), Expires: 01/28/2026Start: 01-28-2025 End: 25-21-4199Psjwmai encounter tpzdogvgn54/13/2025 11:10 AM EDT Office Visit [facility] [address] [place] [address] Deb Matthew MD [address] [place] [address] Type 2 diabetes mellitus with hyperglycemia, with long-term current use of insulin (HCC)[facility]ocrinologyComment on above:Type 2 diabetes mellitus with hyperglycemia, with long-term current use of insulin (HCC)Start: 37-40-9986Mnnds BMI ScreeningAdult BMI ScreeningProMercy Health Willard Hospital SystemStart: 12-02-2024 End: 61-49-7248Hqpfslw encounter fqrzvtysy73/17/2025 12:45 PM EDT Office Visit [facility] [address] [place] [address] Hanna Butcher MD [address] [facility] [address] [place] [address] [facility]monary/Sleep MedicineStart: 10-30-2024 End: 59-58-8249Stmrlnd encounter wpxxaexxq38/15/2025 11:15 AM EDT Office Visit [facility] [address] [place] [address] Ashli Ross, [address] [place] [address] [facility] 230Start: 32-27-4942Nvbxynfoty A1c measurementDiabetes: Hemoglobin U8VPYKV HealthcareStart: 10-21-2024 End: 80-12-3664GT Chest PA and LateralX-ray chest 2 views Imaging Routine SOB (shortness of breath) Expected: 10/21/2024, Expires: 10/21/2025[facility] Work Phone: Comment on above:Expected: 10/21/2024, Expires: 10/21/2025Start: 95-51-8371Znolz screening for proteinDiabetes: Urine Protein ScreeningNONC HealthcareStart: 08-27-2024 End: 71-04-8733Zlulrgh encounter vvjjheyuu58/12/2025 7:30 AM EDT Office Visit [facility] [address] [place] [address] Dank Campo MD [address] [place] [address] [facility] FMStart: 08-22-2024 End: 93-16-4430tgpknvxkwj87/07/2025 8:00 AM EST Treatment [facility] [address] [place] [address] [place] [address] Alma Berkowitz PTNOMS CI PTStart: 08-18-2024 End: 26-51-7767gszkiiqorb78/03/2025 7:30 AM EST Treatment [facility] [address] [facility] [address] [place] [address] Kaden Hickman PTANOMS CI PTStart: 73-17-5726Wmmla BMI ScreeningAdult BMI ScreeningProWilson Memorial Hospitalca [facility] SystemStart: 57-61-6542Mtpkcdc ScreeningTobacco ScreeningProWilson Memorial Hospitalca [facility] SystemStart: 08-14-2024 End: 29-39-4137uhnheikjiu23/27/2025 8:00 AM EST Treatment [facility] [address] [facility] [place] [address] Alma Berkowitz PTNOMS CI PTStart: 08-11-2024 End: 76-42-1389tkakbvoltp35/24/2025 7:30 AM EST Treatment [facility] [address] [facility] [address] [place] [address] Kaden Hickman PTANOMS CI PTStart: 08-07-2024 End: 14-84-3134tfjirdqduf86/20/2025 8:00 AM EST Treatment [facility] [address] [facility] [address] [place] [address] Alma Berkowitz PTNOMS CI PTStart: 08-04-2024 End: 55-01-1603gdxrbcxuqb28/17/2025 7:30 AM EST Treatment [facility] [address] [place] [address] Kaden Hickman PTANOMS CI PTStart: 07-31-2024 End: 37-31-1150Ptlaihc encounter tpcedixzq71/13/2025 10:30 AM EST Office Visit [facility] [address] [place] [address] Ashli Ross, [address] [place] [address] [facility] FM 230Start: 07-31-2024 End: 63-45-1671ttdpmgwuba60/13/2025 8:00 AM EST Treatment [facility] [address] [place] [address] Kaden Hickman PTANOMS CI PTStart: 08-17-9338Babozopvfr A1c measurementDiabetes: Hemoglobin A1C [facility] HealthcareStart: 07-28-2024 End: 67-22-6658thyjhzbakcNGTP CI PTStart: 07-24-2024 End: 46-44-5818rqogxscdur64/06/2025 8:00 AM EST Treatment [facility] [address] [place] [address] Alma Berkowitz PTNOMS CI PTStart: 07-23-2024 End: 29-81-0824Dzxqasv encounter feldbxveo40/05/2025 9:15 AM EST Office Visit [facility] [address] [facility] [place] [address] Rebecca Dias, PA [address] [place] [address] [facility]THOPAEDICSStart: 07-21-2024 End: 38-59-4871lazizeuuip01/03/2025 8:00 AM EST Treatment [facility] [address] [place] [address] Kaden Hickman PTANOMS CI PTStart: 07-16-2024 End: 44-46-0376cuehzvudyx57/29/2025 8:00 AM EST Treatment [facility] [address] [facility] [address] [place] [address] Kaden Hickman PTANOMS CI PTStart: 07-14-2024 End: 35-86-6626Aiirzkp encounter mzkhfaoes06/27/2025 2:00 PM EST Office Visit [facility] [address] [place] [address] Hanna Butcher MD [address] [facility] [address] [place] [address] [facility]/Sleep MedicineStart: 07-01-2024 End: 82-83-7414mrifcbkkkv02/14/2025 9:00 AM EST Treatment [facility] [address] [facility] [address] [place] [address] Alma Berkowitz PTNOMS CI PTStart: 06-26-2024 End: 87-28-3993jewgtqwfip80/09/2025 9:00 AM EST Treatment [facility] [address] [facility] [address] [place] [address] Kaden Hickman PTANOMS CI PTStart: 06-25-2024 End: 31-13-9458Camfsjo encounter dzgxpfojw10/08/2025 8:45 AM EST Office Visit [facility] [address] [place] [address] Rebecca Dias, TK [address] [facility] [address] [place] [address] [facility]OPAEDICSStart: 06-24-2024 End: 11-50-1411zcrzeyycaz06/07/2025 9:00 AM EST Treatment [facility] [address] [facility] [address] [place] [address] Alma Berkowitz PTNOMS CI PTStart: 06-20-2024 End: 63-86-8296hjokevgown99/03/2025 8:00 AM EST Treatment [facility] [address] [place] [address] Justina Carrillo, PT [address] [place] [address] [facility] Start: 06-16-2024 End: 27-28-2378qbjyvcruxf81/30/2024 10:00 AM EST Treatment [facility] [address] [place] [address] Alma Berkowitz PTNOMS CI PTStart: 06-06-2024 End: 55-16-8098Sawhiwn encounter jrocwolmr22/20/2024 9:00 AM EST Office Visit [facility] [address] [place] [address] Rebecca Dias, PA [address] [place] [address] [facility]OPAEDICSStart: 06-05-2024 End: 92-51-8428mmicitqfjrHHZU CI PTStart: 06-02-2024 End: 85-39-4399ackwtubbph53/16/2024 12:00 PM EST Treatment [facility] [address] [facility] [address] [place] [address] Kaden Hickman PTANOMS CI PTStart: 05-29-2024 End: 64-80-6579Bwbmanc encounter qwbhydqpl55/12/2024 2:45 PM EST Office Visit [facility] [address] [place] [address] Dexter Krishnamurthy DPM [address] [place] [address] [facility] PODIATRYStart: 05-29-2024 End: 44-22-0907tpgvujgeqfEWBX CI PTStart: 05-28-2024 End: 53-07-3204Uyiocmo encounter procedureNOMS CWM FMComment on above:Arrived Start: 05-26-2024 End: 14-40-9471fxwxlhcoto52/09/2024 10:00 AM EST Treatment [facility] [address] [place] [address] Kaden Hickman PTANOMS CI PTStart: 05-22-2024 End: 94-18-0045eawizeyfftJPXL CI PTStart: 05-19-2024 End: 82-56-0990mpdtojvwuy44/02/2024 7:00 AM EST Treatment [facility] [address] [place] [address] Kaden Hickman PTANOMS CI PTStart: 05-13-2024 End: 31-56-9468cbhaqhifbc63/26/2024 9:30 AM EST Evaluation [facility] [address] [place] [address] Alma Berkowitz PTNOMS CI PTStart: 05-09-2024 End: 63-09-2830Becshsa encounter procedureNOMS FB ORTHOPAEDICSComment on above: S/P arthroscopy of left shoulder (Primary Dx)Start: 84-73-5039Qjueasxity A1c measurementDiabetes: Hemoglobin X3FUNVJMissouri Delta Medical CenterStart: 04-29-2024 End: 38-64-5355Ysxuktc encounter procedureNOMS SWS FM 230Comment on above:Type 2 diabetes mellitus with diabetic polyneuropathy, with long-term current use of insulin ([facility])Start: 04-08-2024 End: 35-31-2440Sahfepn encounter procedureNOMS FB ORTHOPAEDICSComment on above: Pre-op examination (Primary Dx)Start: 03-25-2024 End: 34-49-4935Dvflinx encounter kquidbsvd76/08/2024 1:30 PM EDT Procedure Visit [facility] Jr. Bassem Hdez, DO [address] [place] [address] [facility] EXT DEPStart: 03-18-2024 End: 41-62-6261Dccgs metabolic 1997 panel - Serum or PlasmaBasic metabolic panel Lab Routine Preop examination Expected: 03/18/2024 (Approximate), Expires: NONC Healthcare Work Phone: Comment on above:Expected: 03/18/2024 (Approximate), Expires: 03/13/2025Start: 03-18-2024 End: 44-50-6286Euofr metabolic 1999 panel - Serum or PlasmaBasic Metabolic Panel Lab Routine Encounter for other preprocedural examination Expected: 03/18/2024, Expires: 03/18/2025[facility] Work Phone: Comment on above:Expected: 03/18/2024, Expires: 03/18/2025Start: 03-18-2024 End: 41-65-2893TBB W Auto Differential panel - BloodTHE [facility]IC [facility] HealthcareComment on above:Expected: 03/18/2024 (Approximate), Expires: 03/13/2025Expected: 03/18/2024, Expires: 03/18/2025Start: 03-18-2024 End: 21-69-7177Yutydilfuvf time (PT) in Blood by Coagulation assayProtime-INR Lab Routine Preop examination Expected: 03/18/2024 (Approximate), Expires: 03/13/2025NONC HealthcareComment on above:Expected: 03/18/2024 (Approximate), Expires: 03/13/2025Start: 03-18-2024 End: 01-69-9296Puyewvw & INRProtime & INR Lab Routine Encounter for other preprocedural examination Expected: 03/18/2024, Expires: 03/18/2025[facility] Work Phone: Comment on above:Expected: 03/18/2024, Expires: 03/18/2025Start: 10-47-3319Jrwmisldie hospital visit by vbobitmno96/01/2024 9:07 AM EDT Hospital Encounter [facility] [address] [place] [address] ArrivedFostoria City Hospital - LabComment on above:ArrivedStart: 03-18-2024 End: 21-55-1727Fmxmgvo encounter procedureNOMS FB ORTHOPAEDICSComment on above: Preop examinationStart: 03-03-2024 End: 48-63-2962Hvyuiuj encounter trzeylrvi36/16/2024 2:30 PM EDT Office Visit [facility] [address] [place] [address] Jr. Bassem Hdez, DO [address] [place], [place] [address] ArrivedNOMS FB ORTHOPAEDICSComment on above:ArrivedStart: 02-25-2024 End: 54-53-4799IS Chest for screening WO contrastCT low dose lung screening (Annual) Imaging Routine Personal history of tobacco use, presenting hazards to health Expected: 02/25/2024, Expires: 02/24/2025[facility] Work Phone: Comment on above:Expected: 02/25/2024, Expires: 02/24/2025Start: 02-25-2024 End: 30-57-7521Nmuwbhs encounter procedureNOMS FB ORTHOPAEDICSStart: 02-17-2024 COVID-19 Vaccine ( season)COVID-19 Vaccine ( season) [facility]Start: 94-13-7752RBHQR-19 Vaccine ( season) COVID-19 Vaccine ( season)[facility] SystemStart: 02-17-2024 Influenza vaccinationNONC HealthcareStart: 12-13-2023 End: 77-85-2650Nxjnbjrq Ovcyynn4712/13/2023 8:00 PM EDT Clinical Support [facility] [address] [facility] [place] [address] [phone] County Medical CenterSleep Disorders CenterStart: 11-19-2023 End: 38-45-3635Lhmmvjif Gzcegsi7111/19/2023 8:00 PM EDT Clinical Support [facility] [address] [place] [address] [phone] City Hospital - Sleep Disorders Start: 10-29-2023 End: 38-66-4689Ngvqgpd encounter ugdgtlqyg11/13/2024 1:15 PM EDT Office Visit [facility] [address] [place] [address] Ashli Ross DO [address] [place] [address] [facility] S[facility] FM 230Start: 20-89-2385Olhnyckpyy A1c measurementDiabetes: Hemoglobin M9JFCIKUniversity Health Lakewood Medical CenterStart: 08-29-2023 End: 36-52-3580Bppscrq encounter hywsnxzmn73/13/2024 7:45 AM EDT Office Visit [facility] [address] [place] [address] Dank Campo MD [address] [place] [address] [facility] FMStart: 08-23-2023 End: 07-74-3482Hpvtkgn encounter procedureFostoria City Hospital - CT ImagingStart: 08-15-2023 End: 48-73-1498SW Chest for screening WO contrastCT low dose lung screenin (3mo 6mo follow-up) Imaging Routine Personal history of tobacco use, presenting hazards to health Expected: 08/15/2023, Expires: 08/15/2024[employer] Work Phone: Comment on above:Expected: 08/15/2023, Expires: 08/15/2024Start: 08-15-2023 End: 47-55-1497Tpdy complete W/O contrastEcho complete W/O contrast Echocardiography Routine Obstructive sleep apnea syndrome CSA (central sleep apnea) Expected: 08/15/2023, Expires: 08/15/2024[facility] SystemComment on above:Expected: 08/15/2023, Expires: 08/15/2024Start: 08-09-2023 End: 39-40-9151Trihbcd encounter gdvldxver24/22/2024 8:30 AM EST Office Visit [facility] [address] [place] [address] Dexter Krishnamurthy, DPM [address] [place] [place], [place] [address] [facility] PODIATRYStart: 08-01-2023 End: 59-73-0867Jxyqycl encounter xoyffynin00/14/2024 10:30 AM EST Office Visit [facility] [address] [place] [place] [address] Jr. Bassem Hdez, DO [address] [facility] [address] [place], [place] [address] [facility] ORTHOPAEDICSStart: 04-27-2023 [facility] Hospitaltart: 39-18-9769Acifoamxrjhkyq of varicella zoster vaccineZoster (Shingles) Vaccine (3 of 3)[facility] SystemStart: 10-37-7077ACFEX-19 Vaccine ( season)COVID-19 Vaccine ( season)[facility] SystemStart: 12-14-2387KULFD-19 Vaccine ( season)COVID-19 Vaccine ( season)[facility] SystemStart: 69-52-7105Tlokqghmn vaccinationInfluenza VaccineProMercy Health Willard Hospital SystemStart: 78-44-7503AbjnnzbsqMansfield Hospitaltart: 06-60-4424Swbzd BMI Screening Adult BMI ScreeningNovant Health Pender Medical Centertart: 75-98-3635Jdsrqnyul aortic aneurysm screeningAbdominal Aortic Aneurysm (AAA) ScreenFirelands Regional Medical Center Start: 49-43-8308Rnhc Risk ScreeningFall Risk ScreeningFirelands Regional Medical Center Start: 13-58-6810Wenda screening for proteinDiabetes: Urine Protein Screening [facility] HealthcareStart: 01-93-0523Imhya BMI Follow Up PlanAdult BMI Follow Up Plan [facility] SystemStart: 83-06-8066Cxpexsufag ScreeningDepression Screening [facility] SystemStart: 50-67-0436Muyurcp ScreeningTobacco Screening [facility] SystemStart: 65-03-9336Tqaxhsap screeningDiabetes: Retinopathy ScreeningTHE [facility]IC [facility] HealthcareStart: 03-31-1956Medicare Annual Wellness (AWV)Medicare Annual Wellness (AWV)[facility] HealthcareStart: 03-31-1956Medicare Annual Wellness VisitMedicare Annual Wellness VisitProMercy Health Willard Hospital SystemStart: 1955 Screening for malignant neoplasm of colonTHE [facility]IC [facility]TY [facility] HealthcarePatient Education [facility] Work Phone: End: 63-50-3034Odrsynwncarmbeb 4 or more parameters with PAP titration Polysomnography 4 or more parameters with PAP titration Sleep Center Routine Obstructive sleep apnea syndrome CSA (central sleep apnea) 1 Occurrences starting 08/15/2023 until 08/15/2024[facility] [employer] [employer] SystemComment on above:1 Occurrences starting 08/15/2023 until 08/15/2024 End: 70-51-7343Osiwxpwke function test Spirometry (Flow Volume Loop) pre/post short acting bronchodilator w/ DLCO (diffusion study)Pulmonary function test Spirometry (Flow Volume Loop) pre/post short acting bronchodilator w/ DLCO ( diffusion study) PFT Routine SOB (shortness of breath) 1 Occurrences starting 10/27/2024 until 10/27/2025[facility] CenterN[facility] Work Phone: Comment on above:1 Occurrences starting 10/27/2024 until 10/27/2025Supine abdominal X-rayOhiohealth Hardin Memorial HospitalXR Shoulder - left 2 ViewsXR shoulder 2+ views left Imaging Routine Acute pain of left shoulder 03/03/2024 2:47 PM [facility] [employer] Work Phone: Immunizations Immunization DateImmunizationNotesCare HsylgbfiEkmfvktp31-04-2458LTWEPUR - Respiratory syncytial virus (RSV), vaccine, bivalent, protein subunit RSV prefusion F, diluent reconstituted, 0.5 mL, PFAllison Petznick DO Work Phone: NOMissouri Delta Medical CenterSyvpisyreb85-06-9815zdisifufc, high dose seasonal, preservative-freeAllison Petznick DO Work Phone: NOMissouri Delta Medical CenterOipuatbvhe94-00-4247mwrwthlqd virus vaccine, unspecified formulationJr. Stepanic DO Work Phone: NOMissouri Delta Medical CenterSmfobnzrby65-12-3405dnbfsq vaccine recombinant Ashli Petznick DO Work Phone: NOMissouri Delta Medical CenterActygmvbpp55-78-0416AZP, recombinant, protein subunit RSVpreF, adjuvant reconstitu, 120mcg/0.5mL, PF (Arexvy)Ashli Petznick DO Work Phone: NOMissouri Delta Medical CenterPdfwkvlank18-57-3585tpphtakfe virus vaccine, unspecified formulationPaCerac [facility]08-30-2023Influenza, Seasonal, Quadrivalent, AdjuvantedAllison Petznick DO Work Phone: noMissouri Delta Medical CenterCrwopfrjfx45-46-9631vpetea vaccine recombinant Ashli Petznick DO Work Phone: noMissouri Delta Medical CenterJtyhywlksy39-25-8877ughjon vaccine, unspecified formulationVan Buren County Hospital10-23-2022COVID-19 mRNA Bivalent Booster (Pfizer)MD Dank Campo Work Phone: [facility]10-23-2022influenza virus vaccine, unspecified formulationPlaceIQ [facility]10-23-2022Influenza, Seasonal, Quadrivalent, AdjuvantedAllison Petznick DO Work Phone: NOMissouri Delta Medical CenterLxkvnazfhp84-63-3595SQNYC-18 mRNA, Comirnaty (Pfizer)MD Dank Campo Work Phone: [facility]09-07-2021influenza virus vaccine, unspecified formulationPaCerac [facility]09-07-2021Influenza, Seasonal, Quadrivalent, AdjuvantedAllison Petca DO Work Phone: NOFujian [employer] Mfcvsxjsgo94-68-9072ezsikzlfflob polysaccharide vaccine, 23 valentAllison Petca DO Work Phone: noMS Momlbguoxb45-60-7748gtsbuyrypggu conjugate vaccine, 13 valentPatodd PETERSEN [facility]08-05-2021tetanus and diphtheria toxoids, adsorbed, preservative free, for adult use (5 Lf of tetanus toxoid and 2 Lf of diphtheria toxoid)Kike Bernal Other [place] MDCapsule Other [id number] and diphtheria toxoids, adsorbed, preservative free, for adult use (2 Lf of tetanus toxoid and 2 Lf of diphtheria toxoid)Petersonpercy PETERSEN [facility]08-02-2021influenza virus vaccine, unspecified formulationPatricdouglas PETERSEN [facility]08-02-2021influenza, seasonal, injectableAllison Petca DO Work Phone: NOFujian [employer] Wcbjsckelm32-50-3904Wgbowrs SARS-CoV-2 VaccinationAllison Petca DO Work Phone: noFujian [employer] Bjckmvifmj19-68-9656TYRV-SvE-1 (COVID-19) mRNA BNT-162b2 vaxEthandouglas PETERSEN [facility] 04-183089-71-3434SGCRR-11 mRNAAlfred (Pfizer)MD Dank Campo Work Phone: [facility]03-24-2021COVID-19 Alfred Hightower (Pfizer)MD Dank Campo Work Phone: [facility]09-01-2020influenza virus vaccine, unspecified formulationPaCerac [facility]09-01-2020influenza, injectable, quadrivalent, preservative freeAllison Petznick DO Work Phone: NOMissouri Delta Medical CenterSnlxsrxfjj44-97-2340dpoencyvu, high dose seasonal, preservative-freeAllison Petznick DO Work Phone: NOMissouri Delta Medical CenterFahmltpqnj74-00-5259ndxwzpqjw virus vaccine, unspecified formulationPaCerac [facility]09-28-2019influenza, injectable, quadrivalent, preservative freeAllison Petznick DO Work Phone: [facility] CenterPgsfbgpfjg75-64-0202mequejcab virus vaccine, unspecified formulationPaCerac [facility]09-10-2018influenza, injectable, quadrivalent, preservative freeAllison Petznick DO Work Phone: [facility] CenterQsvzdyxnpy59-25-0682pwlxhvkqyeuj conjugate vaccine, 13 valentAllison Petznick DO Work Phone: NOMiss[facility] Delta Medical CenterYhzyqjnhuz39-74-3952oaovulurpbmw polysaccharide vaccine, 23 valentAllison Petznick DO Work Phone: NOMiss[facility] Medical CenterEeuowxqdxh30-46-3536ywkefyjdd nasal, unspecified formulationAllison Petznick DO Work Phone: NOMiss[facility] Medical CenterOsniotwrlr38-02-6354lmjtgfdgy virus vaccine, unspecified formulationPlaceIQ [facility]09-15-2017influenza, injectable, quadrivalent, preservative freeAllison Petznick DO Work Phone: [place] [id number] virus vaccine, unspecified formulationPaCerac [facility]09-18-2016influenza, injectable, quadrivalent, preservative freeAllison Petznick DO Work Phone: [facility] [id number], seasonal, injectableAllison Petznick DO Work Phone: [facility] [id number] vaccine, liveAllison Petznick DO Work Phone: [facility]OM[facility] [id number] virus vaccine, unspecified formulationPaCerac [facility]08-17-2015influenza, seasonal, injectableAllison Petznick DO Work Phone: LRMiss[facility] Medical CenterDmcxfulqoy80-97-5451qlbppnh toxoid, reduced diphtheria toxoid, and acellular pertussis vaccine, adsorbedAllison Petznick DO Work Phone: NOMissouri [facility] CenterXdsojppdtt42-35-1835rnpoklkydzpv conjugate vaccine, 13 valentAllison Petznick DO Work Phone: [facility] Payers DatePayer CategoryPayerPolicy [id number] [id number] 2022Medicare (Managed Care)[employer] ADVANTAGE [id number] 2022Medicarecare HMOANTHEM MEDICARE Member Subscriber Plan / Payer (Effective 2021-Present) Name: Milad Seymour Relation to Subscriber: Self Name: Milad Seymour Payer ID: [id number] (NAIC) Group ID: [id number] Type: Not on file Address: [facility] [id number] [place] [id number] 2021Medicare [id number] [id number] [id number] 2.0.1.878501.3.579.[id number] 2.0.1.693895.3.579.2.74857-10-4253Hqgkrdt2206134 2.0.1.446559.3.579.2.11405-45-5464Axaubwc1768646 2.840.1.603481.3.579.2.47278-95-9515Ygshtpq8323511 2.0.1.960974.3.579.2.18678-94-8113Pgrnqzo5304991 2.840.1.201386.3.579.2.31487-30-5969Ruegajc7234948 2.16840.1.135944.3.579.2.50078-20-8667Yowhktj2212214 2.16.840.1.304222.3.579.2.76012-38-6679Zlkbaoa84859926 2.840.1.736815.3.579.2.602709-58-1386Wrzjeqy117504517 2.16840.1.011060.3.579.2.77866-03-8823Qckiqmt742033301 2.840.1.274519.3.579.2.64038-55-0131Mxgycew237682903 2.0.1.973705.3.579.2.69862-82-2053Mchsctp438642988 2.840.1.663844.3.579.2.64365-28-8338Igkeumo522383542 2.0.1.323821.3.579.2.16827-87-8364Yzzusvt894005913 2.840.1.904457.3.579.2.90641-17-0526Pdbicdm527815888 2..1.700303.3.579.2.05507-37-5843Vkclsnx009167196 2.0.1.091846.3.579.2.51571-61-7669Qagaorc020042492 2..1.814500.3.579.2.566866-32-2253Tczvtta86813436 2.840.1.612985.3.579.2.491205-92-8354Hqswrja642529380 2.0.1.160076.3.579.2.471105-09-8989Ynwjbte008021736 2.840.1.600886.3.579.2.771718-17-1472Vyoslnh93162876 2.16.840.1.233062.3.579.2.508069-56-3557Riewilh88186783 2.16.840.1.598345.3.579.2.585438-00-5357Jzzcqnx587747957 2.16840.1.481929.3.579.2.603323-20-9582Xltuxow40843998 2.16840.1.765553.3.579.2.93899-40-2322Tezslqe87948065 2.16840.1.545758.3.579.2.29441-05-0403Lbsmrkv80815942 2.16840.1.481051.3.579.2.70321-00-8514Qgqkcut18934859 2.840.1.762252.3.579.2.17945-41-5690Htjkrvw74104635 2.16840.1.852055.3.579.2.84754-64-5500Epzmvcc70557260 2.840.1.549489.3.579.2.04543-63-6973Jiwuoat60712877 2.16840.1.494726.3.579.2.836123-22-6431Nkjumdg17249194 2.840.1.741719.3.579.2.167174-15-8413Xdplsqy57508383 2.16840.1.146967.3.579.2.766821-39-4500Vhszqlm77575047 2.16840.1.574037.3.579.2.825576-61-0568Klgsjzc3910246 2.16840.1.474824.3.579.2.671166-95-9206Aneobdc0836387 2.16840.1.302749.3.579.2.827153-33-5891Mrhpueu6607353 2.16840.1.973325.3.579.2.458630-76-8315Xgvfgdt2912855 2.16840.1.804750.3.579.2.872671-21-0016Rdilaeg8225521 2.16840.1.164459.3.579.2.487630-66-8060Qlpxfxw8286384 2.16840.1.693855.3.579.2.922379-94-8992Ostyxlo0225426 2.840.1.288727.3.579.2.577347-42-8807Xifhync8282927 2.0.1.193637.3.579.2.605507-75-5772Nwoiiqz2394069 2.840.1.131627.3.579.2.836817-61-9260Kutrsgc9349195 2.840.1.873360.3.579.2.814539-67-9570Lirguev6514643 2.0.1.463938.3.579.2.618390-78-3039Epbkyeo3699309 2.0.1.884376.3.579.2.531281-74-3221Oscvyye1380479 2.840.1.180487.3.579.2.290516-04-8792Vjyounc8579780 2.16840.1.395524.3.579.2.952084-25-9950Fpiezbk5370032 2.16840.1.434872.3.579.2.081393-19-4082Myaiqbz7827672 2.840.1.332114.3.579.2.450042-98-5512Edfsufl8256790 2..1.474812.3.579.2.341788-71-4519Duueyan0482742 2..1.927677.3.579.2.323435-18-8236Valarvo8214472 2..1.260012.3.579.2.512551-93-8485Jxvzbry1614536 2..1.592484.3.579.2.114540-88-9046Mffnpai1019525 2..1.616891.3.57[id number] BC/[id number] 6u6d4xt6-8941-4bo4-4e86-5d760429746zSdsomcgWfndnvz Umyqntbjh002-82-3296 l3o63819-azo0-486n-473w-j0ge79k43319Ugfkibh02825207 2..1.144592.3.579.2.198Plukpqd78890665 ..1.430195.3.579.2.531 Nuqyjic84404956 2..1.225348.3.579.2.804Uxryeru00331017 ..1.737437.3.579.2.494Khbsfuj35807804 ..1.822337.3.579.2.531 Worker's CompensationUS Post Office [id number]'s [id number]-3057-c9ij-52px47kf8t89 Social History DateTypeDetailFacilityStart: 02-03-2022 End: 91-90-2527Bv-smoker (finding)[facility] start: 01-09-2023 End: 65-01-7340VhafQsnjcdutp [facility] start: 84-90-5786Eag [facility] Campustart: 06-18[facility]1974 End: 47-54-1862Dzzfyvk of tobacco useCurrent smokerNOMS HealthcareStart: 06-18-1974 End: 61-84-9359Knbjuje of tobacco useCigarette SmokerNONC HealthcareStart: 12-11-2022 End: 22-38-1774Mnvsqmgdqa smoked current (pack per day) - Reported1.5NOMS HealthcareStart: 12-11-2022 End: 69-70-7180Xrsuowj use and exposureSmokeless tobacco non-userNOMS Healthcare Start: 07-30-2023 End: 35-06-0156Rhrzafe intakeEx-drinker (finding)[facility]OMS HealthcareWithin the last year, have you been afraid of your partner or ex-partner?NoNOMS HealthcareDo you belong to any clubs or organizations such as scientologist groups, unions, fraternal or athletic groups, or school groups?YesNOMS HealthcareAre you now , , , , never or living with a partner? NOMS HealthcareHow often to you have a drink containing alcohol?NeverNOMS HealthcareStart: 59-84-0852Fhj many standard drinks containing alcohol do you have on a typical day?Patient does not drinkNOMS HealthcareDo you feel stress - tense, restless, nervous, or anxious, or unable to sleep at night because your mind is troubled all the time - these days [OSQ]Not at allNOMS Healthcare(I/We) worried whether (my/our) food would run out before (I/we) got money to buy more. Never trueNOMS HealthcareStart: 11-89-3937Lethsop CommentLast smoked: 3-6 months agoHeavy cigarette smoker (20-39 cigs/day)[facility] CenterStart: 05-01-2023 Alcohol CommentCaffeine intake: [facility] HospitalStart: 64-46-8235Tyo Assigned At BirthNot on Dr. [facility] HospitalStart: 01-21-2015 End: 93-02-2661QztZbke (finding)[facility] Hospitaltart: 08-16-2023 End: 30-49-5853Otmlmarhz beverage intakeCurrent non-drinker of alcohol (finding) [facility] SystemStart: 40-34-6710Ibuuvlu smoking status NHISSmokes tobacco dailyGlenbeigh Hospital SystemSexual OrientationExec[facility] start: 04-15-2023 End: 76-31-6929Kywvgpwd to SARS-CoV-2 (event)[facility] Medical Equipment Procedure CodeEquipment CodeEquipment Original TextEquipment IdentifierDatesEGD (esophagogastroduodenoscopy)Video capsule endoscopy system ()[id number](21VTM -DDC-B FDAStart: 08-18-2020 [id number]: 00-64-6745wxj to test BLOOD SUGAR THREE TIMES [id number]: 29-85-9546qmq to test BLOOD SUGAR THREE TIMES [id number]: 10-16-8782GYC DIRECTED FOUR TIMES [id number]: 45-87-8391Okhi [id number]: 40-54-6057XVB DIRECTED FOUR TIMES [id number]: 72-38-4718TEB DIRECTED FOUR TIMES [id number]: 75-67-3003Ufokfcztp 4.75 - Sna - [id number]_yraPrdqh: 48-49-9484Jltt/Teja 4.75 Use 237835 - Sna - [id number]_uzdFjaqo: 83-50-1301Xkzt [id number]: 09-94-5020VBZ DIRECTED FOUR TIMES [id number]: 78-67-2103NEK DIRECTED FOUR TIMES [id number]: 57-28-4118EGN FOUR TIMES A DAY WITH INSULIN PENS.[id number] Start: 02-03-2025 End: 02-03-2026 Goals DatePatient GoalDesired Activity/StatePersonal health goalComment on above: Evaluation of progress towards goal: Home self care with childrens support Functional Status WmnoXhnjoguxahDspclmZyxoflal52-40-6491Bujuqwm Health Questionnaire 2 item (PHQ- 2) [Reported][facility] CenterWkhsceqhkr46-03-7648Mddgvuz Health Questionnaire 2 item (PHQ- 2) [Reported][facility] CenterBybgxxpxqj69-20-8750Vydzijyzuf StatusN/AExec[facility]08-28-2023Functional StatusN/AExec[facility]08-19-2022N/A[facility] Clinical Notes 11-04-2020 to 04-29-2025 Note Date & VlmxNmvfOrxgeiof02-23-7701 History of Present illness Narrative* Deb Matthew MD - 04/29/2025 11:10 AM EST Milad Seymour is a 69 y.o. male No ref. provider found presents with chief complaint of Diabetes Mellitus and Follow-up ([facility]) HPI: IM : 04/2025 Follow-up Visit 04/29/2025 A1c 8.5, blood sugar 185, lab C-peptide 3.5, vitamin- D 31, total cholesterol 171, LDL 95, currently is on Lantus 40 twice a day, Humalog 20-25 every meal, Jardiance 25 we started last visit, Ozempic 2 mg once weekly 01/2025 History of Present Illness The patient is a new patient sent from Dr. Jair Campo for uncontrolled diabetes. A1c in our [...] 300 mg, 2 times daily glucose blood ([employer] Ultra) test strip Fsbs bid insulin glargine (Lantus SoloStar) 100 UNIT/ML pen INJECT 40 UNITS SUBCUTANEOUSLY (UNDER THE SKIN) EVERY MORNING & BEFORE bedtime insulin lispro (HumaLOG) 100 UNIT/ML injection INJECT 30 UNITS SUBCUTANEOUSLY (UNDER THE SKIN) EVERY MORNING, at noon, & EVERY EVENING WITH MEALS insulin pen needle ([employer] [place] Unifine Pentips) 31G x 5 mm misc USE DIRECTED FOUR TIMES DAILY insulin pen needle (UltiCare Short Pen Metz) 31G X 8 mm misc USE FOUR TIMES A DAY WITH INSULIN PENS. Lancets (The Kendal GroupTouch Delica Plus Ecclxd50J) misc lansoprazole (Prevacid) [address] capsule lisinopril 10 mg, Oral, 2 times daily [...] Iron Infusions on going per [facility] , Low back pain Migraine Otitis [...] 07/2020 Right PCR ROTATOR CUFF REPAIR Bilateral [phone] Wendy Crowell ROTATOR CUFF REPAIR 04/2024 SHOULDER [...] no Lab Results Component Value Date HGBA1C 8.3 04/29/2025 HGBA1C 9.7 01/28/2025 HGBA1C 9.4 07/31/2024 Lab Results Component Value Date GLU 189 04/29/2025 GLU 183 (H) 02/03/2025 GLU 294 01/28/2025 04/08/2024 10:00 AM 04/29/2024 10:46 AM 05/28/2024 7:38 AM 05/29/2024 2:51 PM 07/31/2024 10:32 AM 01/28/2025 11:20 AM 04/29/2025 11:10 AM Vitals BMI 35.73 kg/m2 35.61 kg/m2 36.88 kg/m2 36.88 kg/m2 37.02 kg/m2 38.66 kg/m2 37.76 kg/m2 BSA (m2) 2.36 m2 2.36 m2 2.4 m2 2.4 m2 2.4 m2 2.38 m2 2.35 m2 Systolic 124 136 108 122 Diastolic 78 72 70 70 Heart Rate 84 104 78 75 81 SpO2 97 % 97 % 97 % 96 % 94 % Temp 96.1 F 97.1 F 97.9 F Resp 18 16 18 Height (in) 5' 10 5' 10 5' 10 5' 10 5' 10 5' 8.5 5' 8.5 Weight (lb) 249 248.2 257 257 258 258 252 Visit Report Report Report Report Report Report Report Report ASSESSMENT AND PLAN: Assessment/Plan Diagnoses and all orders for this visit: Type 2 diabetes mellitus with hyperglycemia, without long-term current use of insulin (HCC) - POCT glucose manually resulted - POCT glycosylated hemoglobin (Hb A1C) docked device Continue with Lantus 40 twice a day, Humalog 20-25 every meal, Ozempic 2 mg once weekly, Jardiance 25 mg once a day. Primary hypertension Hyperlipemia, mixed Encounter for dietary consultation Class 2 severe obesity due to excess calories with serious comorbidity and body mass index (BMI) of38.0 to 38.9 in adult Diet and exercise reviewed with the patient Stage 3b chronic kidney disease ([facility]) Follow up in about 3 months (around 07/30/2025). documented in this encounterWanda Ville [address]Vpjjmwluox08-38-2068 History of Present illness Narrative* TK Cantu - 02/23/2025 8:45 AM EDT Images from the original note were not included. HISTORY OF PRESENT ILLNESS: EST PT Milad Seymour is an 69 y.o. @ male. (EST PT) (LAST APPT W/ TISH) (NEW PROBLEM) - (R) KNEE DISCOMFORT S/P INCIDENT ~11/2024 (3 MONTHS) - WAS WALKING DOWN STEPS, FELT KNEE LET GO - NOTED LATERAL DISCOMFORT FOLLOWING INJURY XRAY TODAY, 02/23/25 IN EPIC HX CORTISONE INJ WITHIN LAST YR PER PT (>3 MONTHS AGO) MEDIAL / LATERAL DISCOMFORT - WORSE WITH AMBULATION / HS. DENIES RADIATION. DENIES POPPING / GRINDING. ADMITS WEAKNESS - DENIES BUCKLING. DENIES SWELLING. SOME STIFFNESS. DENIES N/T. GOOD ROM - CAN BE PAINFUL. DIFFICULTY WITH GETTING COMFORTABLE. NO PAIN MEDS. DENIES ICING / HEATING. OCCASIONALLY ELEVATING. ALLERGIES: No Known Allergies HOME MEDICATIONS: Current Outpatient Medications Medication Instructions amoxicillin (Amoxil) 875 MG tablet TAKE 1 TABLET BY MOUTH TWICE DAILY UNTIL GONE aspirin (ASPIRIN) 81 mg, Daily celecoxib (CELEBREX) 200 mg, Oral, 2 times daily Continuous Glucose Sensor ([employer] G7 Sensor) misc USE DIRECTED to check [...] 300 mg, 2 times daily glucose blood (The Kendal GroupTouch Ultra) test strip Fsbs bid insulin glargine (Lantus SoloStar) 100 UNIT/ML pen INJECT 40 UNITS SUBCUTANEOUSLY (UNDER THE SKIN) EVERY MORNING & BEFORE bedtime insulin lispro (HumaLOG) 100 UNIT/ML injection INJECT 30 UNITS SUBCUTANEOUSLY (UNDER THE SKIN) EVERY MORNING, at noon, & EVERY EVENING WITH MEALS insulin pen needle ([employer] Unifine Pentips) 31G x 5 mm misc USE DIRECTED FOUR TIMES DAILY insulin pen needle ([employer]ink Gam[employer]Care Short Pen Metz) 31G X 8 mm misc USE FOUR TIMES A DAY WITH INSULIN PENS. Lancets (The Kendal GroupTouch Delica Plus Taqpjs12H) misc lansoprazole (Prevacid) [address] capsule lisinopril 10 mg, Oral, 2 times daily [...] daily PRN triamcinolone (Kenalog) 0.1 % cream PHYSICAL EXAM: Knee Musculoskeletal Exam Gait Gait is normal. Inspection Leg length disparity: no discrepancy Right Erythema: none Effusion: mild Edema: none Edema comment: minimal prepatellar swelling, nontender. Ecchymosis: none Deformity: none Alignment: varus Palpation Right Right knee palpation is unremarkable. Increased warmth: none Masses: none Crepitus: patellofemoral Tenderness: present Medial joint line: mild Patella: mild Range of Motion Right Right knee range of motion is normal and full. Active extension: 5 Passive extension: 0 Active flexion: 120 Passive flexion: 125 Strength Right Right knee strength is normal. Extension: 5/5. Extension is not affected by pain. Flexion: 5/5. Flexion is not affected by pain. Instability Right Instability signs: none - stable Anterior drawer: normal Neurovascular Right Right knee neurovascular exam is normal. Pulses - PT: normal Posterior tibial: 2+ Capillary refill: warm and well-perfused Special Signs Right Right knee special signs are normal. Straight leg raise: normal Patellar apprehension: none General Constitutional: appears stated age Labored breathing: no Psychiatric: normal mood and affect Neurological: alert Skin: intact Lymphadenopathy: none Vitals: There is no height or weight on file to calculate BMI. Tobacco Use: Medium Risk (02/23/2025) Patient History Smoking Tobacco Use: Former Smokeless Tobacco Use: Never Passive Exposure: Not on file Alcohol Use: Not At Risk (01/09/2023) AUDIT-C Frequency of Alcohol Consumption: Never Average Number of Drinks: Patient does not drink Frequency of Binge Drinking: Never IMAGING: XR knee 1 or 2 views right Imaging Result: AP and Lateral weight bearing: Bones: The bony structures of the knee, including the distal femur, proximal tibia, and patella, appear normal. Stable alignment. There are no fractures, dislocations, or bony lesions noted calcification and prominent enthesophyte into quad tendon insertion proximal pole of patella. Joint Spaces: The joint spaces noted for narrowing medial joint line. Soft Tissues: Mild effusion Impression: No acute bony process, moderate tricompartmental arthritic changes greatest to medial and patella femoral joint line. Procedures Orders Placed This Encounter Procedures XR knee 1 or 2 views right Reason for exam:: Pain ASSESSMENT: ICD-10-CM 1. Acute pain of right knee M25.561 XR knee 1 or 2 views right 2. Arthritis of right knee M17.11 Assessment & Plan Right knee pain: Symptoms likely from exacerbation of patellofemoral arthritis, noted discomfort, burning when going down steps. Straight leg raise is intact. No tenderness to distal quad insertion on the proximal pole of the patella. He is aware of the arthritic changes in his knee and occasionally gets pain to the medial joint line. Left knee is more chronically painful but is controlled with Celebrex. Prior x-rays from 2021 show prominent calcifications in the quad tendon insertion to the proximal pole of the patella bilaterally, evident on the AP views. No new injury reported. Symptoms have abated over the past 3 days. Treatment plan: Hold on intra-articular injection for now. Consider intra- articular injection if symptoms return or worsen. Supplement Tylenol at night for pain control if needed and use topical Voltaren gel as safe alternatives given his medical comorbidities. Questions answered in laymen terms at the bedside. The diagnosis, home exercise plan and any ongoing restrictions/ recommendations reviewed. If unable to be reached in office, I recommend evaluation at nearest Emergency Room if any symptoms worsened or new symptoms develop for requiring urgent evaluation. documented in this encounterUniversity Health [facility]wood Medical [id number] Hospital Discharge instructions Patient Education 02/09/2025 09:26:53 Fatigue Fatigue If you have fatigue, you feel tired all the time and have a lack of energy or a lack of motivation.Fatigue may make it difficult to start or complete tasks because of exhaustion. Occasional or mild fatigue is often a normal response to activity or life. However, long-term (chronic) or extreme fatigue may be a symptom of a medical condition such as: Depression. Not having enough red blood cells or hemoglobin in the blood (anemia). A problem with a small gland located in the lower front part of the neck (thyroid disorder). Rheumatologic conditions. These are problems related to the body's defense system (immune system). Infections, especially certain viral infections. Fatigue can also lead to negative health outcomes over time. Follow these instructions at home: Medicines Take fuas-tym-nbzupaf and prescription medicines only as told by your health care provider. Take a multivitamin if told by your health care provider. Do not use herbal or dietary supplements unless they are approved by your health care provider. Eating and drinking Avoid heavy meals in the evening. Eat a well-balanced diet, which includes lean proteins, whole grains, plenty of fruits and vegetables, and low-fat dairy products. Avoid eating or drinking too many products with caffeine in them. Avoid alcohol. Drink enough fluid to keep your urine pale yellow. Activity Exercise regularly, as told by your health care provider. Use or practice techniques to help you relax, such as yoga, destiny chi, meditation, or massage therapy. Lifestyle Change situations that cause you stress. Try to keep your work and personal schedules in balance. Do not use recreational or illegal drugs. General instructions Monitor your fatigue for any changes. Go to bed and get up at the same time every day. Avoid fatigue by pacing yourself during the day and getting enough sleep at night. Maintain a healthy weight. Contact a health care provider if: Your fatigue does not get better. You have a fever. You suddenly lose or gain weight. You have headaches. You have trouble falling asleep or sleeping through the night. You feel angry, guilty, anxious, or sad. You have swelling in your legs or another part of your body. Get help right away if: You feel confused, feel like you might faint, or faint. Your vision is blurry or you have a severe headache. You have severe pain in your abdomen, your back, or the area between your waist and hips (pelvis). You have chest pain, shortness of breath, or an irregular or fast heartbeat. You are unable to urinate, or you urinate less than normal. You have abnormal bleeding from the rectum, nose, lungs, nipples, or, if you are female, the vagina. You vomit blood. You have thoughts about hurting yourself or others. These symptoms may be an emergency. Get help right away. Call 911. Do not wait to see if the symptoms will go away. Do not drive yourself to the hospital. Get help right away if you feel like you may hurt yourself or others, or have thoughts about takingyour own life. Go to your nearest emergency room or: Call 911. Call the National Suicide Prevention Lifeline at or 959. This is open 24 hours a day. Text the Crisis Text Line at 244512. Summary If you have fatigue, you feel tired all the time and have a lack of energy or a lack of motivation. Fatigue may make it difficult to start or complete tasks because of exhaustion. Long-term (chronic) or extreme fatigue may be a symptom of a medical condition. Exercise regularly, as told by your health care provider. Change situations that cause you stress. Try to keep your work and personal schedules in balance. This information is not intended to replace advice given to you by your health care provider. Make sure you discuss any questions you have with your health care provider. Document Revised: 03/27/2022 Document Reviewed: 03/27/2022 [employer]Agendize Patient Education 2023 [facility]. Follow Up Care 02/04/2024 12:54:32 With:NICOLA RAYMUNDO, Peterson Owens, URL Address: [address] [place] [id number] When: Unknown [facility] 08-25-2025 NotePatient Education Immunology Fatigue If you have fatigue, you feel tired all the time and have a lack of energy or a lack of motivation.Fatigue may make it difficult to start or complete tasks because of exhaustion. Occasional or mild fatigue is often a normal response to activity or life. However, long-term (chronic) or extreme fatigue may be a symptom of a medical condition such as: ??? Depression. ??? Not having enough red blood cells or hemoglobin in the blood (anemia). ??? A problem with a small gland located in the lower front part of the neck (thyroid disorder). ??? Rheumatologic conditions. These are problems related to the body's defense system (immune system). ??? Infections, especially certain viral infections. Fatigue can also lead to negative health outcomes over time. Follow these instructions at home: Medicines ??? Take peej-tor-qdwitne and prescription medicines only as told by your health care provider. ??? Take a multivitamin if told by your health care provider. ??? Do not use herbal or dietary supplements unless they are approved by your health care provider. Eating and drinking ??? Avoid heavy meals in the evening. ??? Eat a well-balanced diet, which includes lean proteins, whole grains, plenty of fruits and vegetables, and low-fat dairy products. ??? Avoid eating or drinking too many products with caffeine in them. ??? Avoid alcohol. ??? Drink enough fluid to keep your urine pale yellow. Activity ??? Exercise regularly, as told by your health care provider. ??? Use or practice techniques to help you relax, such as yoga, destiny chi, meditation, or massage therapy. Lifestyle ??? Change situations that cause you stress. Try to keep your work and personal schedules in balance. ??? Do not use recreational or illegal drugs. General instructions ??? Monitor your fatigue for any changes. ??? Go to bed and get up at the same time every day. ??? Avoid fatigue by pacing yourself during the day and getting enough sleep at night. ??? Maintain a healthy weight. Contact a health care provider if: ??? Your fatigue does not get better. ??? You have a fever. ??? You suddenly lose or gain weight. ??? You have headaches. ??? You have trouble falling asleep or sleeping through the night. ??? You feel angry, guilty, anxious, or sad. ??? You have swelling in your legs or another part of your body. Get help right away if: ??? You feel confused, feel like you might faint, or faint. ??? Your vision is blurry or you have a severe headache. ??? You have severe pain in your abdomen, your back, or the area between your waist and hips (pelvis). ??? You have chest pain, shortness of breath, or an irregular or fast heartbeat. ??? You are unable to urinate, or you urinate less than normal. ??? You have abnormal bleeding from the rectum, nose, lungs, nipples, or, if you are female, the vagina. ??? You vomit blood. ??? You have thoughts about hurting yourself or others. These symptoms may be an emergency. Get help right away. Call 911. ??? Do not wait to see if the symptoms will go away. ??? Do not drive yourself to the hospital. Get help right away if you feel like you may hurt yourself or others, or have thoughts about takingyour own life. Go to your nearest emergency room or: ??? Call 911. ??? Call the National Suicide Prevention Lifeline at or 879. This is open 24 hours aday. ??? Text the Crisis Text Line at 460862. Summary ??? If you have fatigue, you feel tired all the time and have a lack of energy or a lack of motivation. ??? Fatigue may make it difficult to start or complete tasks because of exhaustion. ??? Long-term (chronic) or extreme fatigue may be a symptom of a medical condition. ??? Exercise regularly, as told by your health care provider. ??? Change situations that cause you stress. Try to keep your work and personal schedules in balance. This information is not intended to replace advice given to you by your health care provider. Make sure you discuss any questions you have with your health care provider. Document Revised: 03/27/2022 Document Reviewed: 03/27/2022 4meee Patient Education ? 2023 [facility] 02-02-2025 Miscellaneous Notes* Telephone Encounter - Aliza Birchhi - 02/02/2025 1:24 PM EDT Images from [...] better seal with face. documented in this encounterFirelands Regional Medical Center08-18-2025 Telephone encounter Note* Telephone Encounter - Aliza Escalera - 02/02/2025 [...] PAP and form better seal with face. [facility] [id number] History of Present illness Narrative* Deb Matthew MD - 01/28/2025 11:10 AM EDT Milad Seymour is a 69 y.o. male Dank Campo MD presents with chief complaint of Diabetes (NEW REF ONLY) HPI: 01/2025 History of Present Illness The patient is a new patient sent from Dr. Jair Campo for uncontrolled diabetes. A1c in our [...] 300 mg, 2 times daily glucose blood ([employer] Ultra) test strip Fsbs bid insulin lispro (HUMALOG KWIKPEN) 30 Units, Subcutaneous, 3 times daily with meals insulin pen needle (SpeakWorks UniOmnigy Pentips) 31G x 5 mm misc USE DIRECTED FOUR TIMES DAILY Lancets ([employer] Delica Plus [id number]) misc lansoprazole (Prevacid) [address] capsule [...] Iron Infusions on going per [facility] , Low back pain Migraine Otitis [...] 07/2020 Right PCR ROTATOR CUFF REPAIR Bilateral [id number] Wendy Crowell ROTATOR CUFF REPAIR 04/2024 SHOULDER [...] hyperglycemia, with long-term current use of insulin ([facility]) - POCT glucose manually resulted - [...] panel; Future Primary hypertension Insulin long-term use ([facility]) Hyperlipemia, mixed Encounter for dietary consultation Class 2 severe obesity due to excess calories with serious comorbidity and body mass index (BMI) of38.0 to 38.9 in adult ([facility]) Diet and exercise reviewed with the patient Stage 3b chronic kidney disease ([facility]) Type 2 diabetes mellitus with diabetic polyneuropathy, with long-term current use of insulin ([facility]) Assessment & Plan 1. Uncontrolled diabetes: [...] 3 months (around 04/30/2025). documented in this encounterNOMS [id number] History of Present illness Narrative* Hanna Butcher MD - 12/02/2024 12:45 PM EDT Images from the original note were not included. [address] [facility] [address] Patient: Milad Seymour Date of : 1955 [...] (CMS-HCC) PROSTATE COPD (chronic obstructive pulmonary disease) ([facility]) Unknown Diabetes mellitus type 2, controlled ([facility]) GERD (gastroesophageal reflux disease) History of placement [...] DO at [facility] REPAIR ROTATOR CUFF SHOULDER Right 12/10/2017 Performed by Karsten Crowell DO at [facility] SHOULDER SURGERY bilateral TONSILLECTOMY 06/1970 TYMPANOSTOMY [...] Activity Alcohol Use No documented in this encounterFirelands Regional Medical Center05-12-2025 History of Present illness Narrative* Hanna Butcher MD - 10/27/2024 10:15 AM EDT Images from the original note were not included. [address] [place] [address] Patient: Milad Seymour Date of : 1955 [...] Pulmonary regimen: Current = None Past = Duaklir 2019 Triggers: Cigarette use = quit 2021 [...] Hanna Butcher MD Pulmonary and Sleep Medicine [facility] Past Medical, Family, and Social History Update: The following portions of the patient's history were reviewed and updated as appropriate: allergies, current medications, past family history, past medical history, past social history, past surgicalhistory and problem list. Past Medical History: Diagnosis Date Anemia Unknown Arthritis Benign prostatic hyperplasia Cancer ([facility]) PROSTATE COPD (chronic obstructive pulmonary disease) ([facility]) Unknown Diabetes mellitus type 2, controlled ([facility]) GERD (gastroesophageal reflux disease) History of placement of ear tubes right ear Hyperlipidemia Hypertension Jaundice 03/30/21 FRANK (obstructive sleep apnea) cpap Visual impairment glasses Past Surgical History: Procedure Laterality Date APPENDECTOMY CHOLECYSTECTOMY 04/06/21 COLONOSCOPY 2019 FOOT SURGERY heel spur right KNEE SURGERY bilateral scope LAPAROSCOPIC EPIGASTRIC HERNIA REPAIR REPAIR ROTATOR CUFF SHOULDER Right 07/19/2020 Performed by Karsten Crowell DO at [facility] REPAIR ROTATOR CUFF SHOULDER Right 12/10/2017 Performed by Karsten Crowell DO at [facility] SHOULDER SURGERY bilateral TONSILLECTOMY 06/1970 TYMPANOSTOMY [...] Activity Alcohol Use No documented in this encounterFirelands Regional Medical Center05-12-2025 Instructions* Patient Instructions* Hanna Butcher MD - 10/27/2024 10:15 AM EDT 1. Need leak improvement to help with AHI 2. Update PFTs 3. Noted attempted CT but unable 4. Follow up in 1 month documented in this encounterFirelands Regional Medical Center05-06-2025 Miscellaneous Notes* Telephone Encounter - KARISSA Rivera - 10/21/2024 11:38 AM EDT Patient came in office to reschedule his appointment with YASMIN, patient was last seen on 02/25/2024, patient no showed to his last appointment on 07/14/2024. Patient has only been seen for FRANK. Patientwould like to discuss pulmonary concerns with YASMIN. Patient is scheduled for next available of 03/09/2025 in Center (in 30 minute slot). Patient has not completed his LDSCT due to having anxiety/panicattack of being in confined area. Patient has not had any recent chest imaging or PFTs. Please review and advise. * Telephone Encounter - Hanna Butcher MD - 10/21/2024 11:38 AM EDT Noted. Please have him on the cancellation list. If SOB is worse, ok to get repeat chest xray * Telephone Encounter - KARISSA Rivera - 10/21/2024 11:38 AM EDT Patient stated that he has been experiencing more shortness of breath on exertion, denies wheezing and cough. * Telephone Encounter - KARISSA Rivera - 10/21/2024 11:38 AM EDT Sales Administration Manager called patient and informed him that YASMIN ordered a CXR to have him complete at his earliest convenience. Patient verbalized understanding. documented in this encounterFirelands Regional Medical Center05-06-2025 Telephone encounter Note* Telephone Encounter - KARISSA Rivera - 10/21/2024 11:38 AM EDT Patient came in office to reschedule his appointment with KW, patient was last seen on 02/25/2024, patient no showed to his last appointment on 07/14/2024. Patient has only been seen for FRANK. Patientwould like to discuss pulmonary concerns with KW. Patient is scheduled for next available of 03/09/2025 in Center (in 30 minute slot). Patient has not completed his LDSCT due to having anxiety/panicattack of being in confined area. Patient has not had any recent chest imaging or PFTs. Please review and advise. [facility] [id number] Telephone encounter Note* Telephone Encounter - Hanna Butcher MD - 10/21/2024 11:38 AM EDT Noted. Please have him on the cancellation list. If SOB is worse, ok to get repeat chest xray [facility] [employer] Work Phone: [phone] Telephone encounter Note* Telephone Encounter - KARISSA Rivera - 10/21/2024 11:38 AM EDT Patient stated that he has been experiencing more shortness of breath on exertion, denies wheezing and cough. [facility] [id number] Telephone encounter Note* Telephone Encounter - KARISSA Rivera - 10/21/2024 11:38 AM EDT Sales Administration Manager called patient and informed him that KW ordered a CXR to have him complete at his earliest convenience. Patient verbalized understanding. [facility] [id number] History of Present illness Narrative* Dexter Krishnamurthy DPM - 09/24/2024 2:45 PM EDT Images from the original note were not included. Subjective Patient ID: Darrin Seymour is a 69 y.o. male who presents for Diabetic Shoes (Established pt presentstoday wanting to start diabetic shoe process. Pt [...] radiculopathy. Has recently received injection therapy at [facility]; and is potentially scheduled [...] 60 capsule, Rfl: 5 Continuous Glucose Sensor (Anescocom G7 Sensor) misc, USE DIRECTED to check BLOOD SUGAR *change EVERY TEN days *, Disp: 9 each, Rfl: 3 Drug [place] Unifine Pentips 31G X 5 MM misc, USE DIRECTED FOUR TIMES DAILY, Disp: 100 each, Rfl: 3 FLUoxetine (PROzac) 40 MG capsule, Take 1 capsule (40 mg) by mouth Daily, Disp: 90 capsule, Rfl: 3 gabapentin (Neurontin) 300 MG capsule, Take 300 mg by mouth in the morning and 300 mg before bedtime., Disp: , Rfl: glucose blood (The Kendal GroupTouch Ultra) test strip, Fsbs bid, Disp: 200 each, Rfl: 3 insulin lispro (HumaLOG) 100 UNIT/ML injection, INJECT 18 UNITS BREAKFAST/LUNCH, 35 units DINNER PLUS CORRECTIONS OF 1:30 > 150MG/DL ( MAX 100 UNITS A DAY), Disp: 90 mL, Rfl: 3 Lancets ([employer] Kendal GroupTouch Delica Plus [id number]) misc, use to test BLOOD SUGAR THREE [...] SURGERY 03/2021 HEEL SPUR SURGERY Right 2011 [place] KNEE SURGERY x2 arthroscopy OTHER SURGICAL HISTORY 07/31/2017 RM and T-tube, Timmis OTHER SURGICAL HISTORY Right 07/2020 Right PCR ROTATOR CUFF REPAIR Bilateral [id number] Wendy Crowell ROTATOR CUFF REPAIR 04/2024 SHOULDER [...] understanding. Dexter Krishnamurthy DPM documented in this [facility]04-09-2025 Instructions* Patient Instructions* Dexter Krishnamurthy DPM - 09/24/2024 2:45 PM EDT As noted documented in this [facility]02-13-2025 History of Present illness Narrative* Ashli Ross DO - 07/31/2024 1:15 PM ESTAssociated Problem(s): Type 2 diabetes mellitus with diabetic polyneuropathy, with long- term current use of insulin ([facility]) During the appointment today all pertinent [...] they should not give the meal dose butshould just give a correction insulin dose. , Instructions given today include: Insulin instructions and Dietary education. He needs to get better with his diet in order to improve control of his diabetes. I also recommended getting into a regular exercise routine as well with the goal of at least 150 min moderate intensity exercise weekly. Will increase insulin to help as well. * Ashli Ross DO - 07/31/2024 10:30 AM EST Images from the original note [...] hypotension Osteoarthritis of knee Benign essential hypertension ([facility]) Primary osteoarthritis, right shoulder Prostate cancer ([facility]) Proteinuria Hypercholesteremia ([facility]) Renal failure 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, with long-term current use of insulin ([facility]) Long-term insulin use ([facility]) Lumbar spondylosis Bilateral leg edema Encounter for long-term (current) use of medications Class 2 severe obesity due to excess calories with serious comorbidity and body mass index (BMI) of37.0 to 37.9 in adult ([facility]) FRANK (obstructive sleep apnea) Chronic fatigue Right hand pain Hypersomnia Fasciculations Memory impairment Bilateral carpal tunnel syndrome Foot drop, right Lumbar radiculopathy Cervical radiculopathy Family history of Parkinson's disease JARAD (generalized anxiety disorder) ([facility]) Type 2 diabetes mellitus with stage 3b chronic kidney disease, with long-term current use of insulin ([facility]) ([facility]) Type 2 diabetes mellitus with hyperglycemia, with long-term current use of insulin ([facility]) Social History Tobacco Use Smoking status: [...] - Discontinued (Dose adjustm) Insulin Lispro INJECT 18 UNITS BREAKFAST/LUNCH, 35 units DINNER PLUS CORRECTIONS OF 1:30 > 150MG/DL ( MAX 100 UNITS A DAY) (100 UNIT/ML SOPN) Semaglutide 1 mg Weekly [facility] HEMOGLOBIN A1C/HEMOGLOBIN.TOTAL:MFR:PT:BLD:QN: 9.4 Outpatient prescription Medication marked [...] polyneuropathy, with long-term current use of insulin ([facility]) During the appointment today all pertinent [...] they should not give the meal dose butshould just give a correction insulin dose. , [...] serious comorbidity and body mass index (BMI) of37.0 to 37.9 in adult ([facility]) - Primary Type 2 diabetes mellitus with stage 3b chronic kidney disease, with long-term current use of insulin ([facility]) ([facility]) Type 2 diabetes mellitus with hyperglycemia, with long-term current use of insulin ([facility]) Follow up in about 3 months [...] and 300 mg before bedtime. GLUCOSE BLOOD (SynovexUCH ULTRA) TEST STRIP Fsbs bid LANCETS (Local Plant SourceTOUCH DELICA PLUS [id number]) [facility] use to test BLOOD SUGAR THREE TIMES [...] 3 (three) times a day as needed formuscle spasms TRIAMCINOLONE (KENALOG) 0.1 % CREAM APPLY [...] > 150MG/DL( MAX 100 UNITS A DAY) Discontinued Medications GABAPENTIN (NEURONTIN) 100 MG CAPSULE Take by mouth I have reviewed and reconciled the history and medication list with the patient today. documented in this encounterUniversity Health Lakewood Medical [id number] Evaluation note* Diagnosis Onset Date Resolution Status Admit Date GERD (gastroesophageal reflux disease) acuteFebruary 2024 2:05pmIBS (irritable bowel syndrome)acuteFebruary 2024 2:05pm [facility] Work Phone: [phone] History of Present illness Narrative* TK Cantu [...] urgent evaluation. documented in this encounterUniversity Health Lakewood Medical [id number] History of Present illness Narrative* Alma Berkowitz, [...] pillow removed. No complaints of pain. Precautions: [place] Subjective: Pt states he was consistently icing [...] to be instructed in home exercise program. Fpc Goals: To be met in 10 weeks [...] below. Date: documented in this encounterUniversity Health Lakewood Medical [id number] History of Present illness Narrative* KT Cantu - 06/25/2024 8:45 AM EST Images [...] urgent evaluation. documented in this encounterUniversity Health Lakewood Medical CenterKyiegogper48-29-1110 History of Present illness Narrative* Alma Berkowitz, [...] pillow removed. No complaints of pain. Precautions: [place] Subjective: Pt states he has noticed a [...] to be instructed in home exercise program. Fpc Goals: To be met in 10 weeks [...] below. Date: documented in this encounterUniversity Health Lakewood Medical CenterWlibmlvtkt03-34-0789 History of Present illness Narrative* Justina Carrillo, [...] pillow removed. No complaints of pain. Precautions: [place] Subjective: No significant pain coming in today. [...] to be instructed in home exercise program. Fpc Goals: To be met in 10 weeks [...] below. Date: documented in this encounterUniversity Health Lakewood Medical [id number] History of Present illness Narrative* Alma Berkowitz, [...] pillow removed. No complaints of pain. Precautions: [place] Subjective: Pt states he was a little [...] to be instructed in home exercise program. Fpc Goals: To be met in 10 weeks [...] below. Date: documented in this encounterUniversity Health Lakewood Medical [id number] History of Present illness Narrative* Alma Berkowitz [...] pillow removed. No complaints of pain. Precautions: [place] Subjective: Pt states pain is minimal in [...] to be instructed in home exercise program. [employer] Maker Goals: To be met in 10 weeks [...] Please sign below. Date: documented in this [facility]12-21-2024 Telephone encounter Note* Telephone Encounter - TK Cantu - 06/07/2024 8:34 AM EST Spoke with pt. May DC sling.. Start AROM/ PROM,. No strengthening or resistance... keep therapy going pending follow up.. pt feels he is doing well and making progress [facility] [id number] Miscellaneous Notes* Telephone Encounter - TK Cantu - 06/07/2024 8:34 AM EST Spoke with pt. May DC sling.. Start AROM/ PROM,. No strengthening or resistance... keep therapy going pending follow up.. pt feels he is doing well and making progress documented in this [facility]12-17-2024 Telephone encounter Note* Telephone Encounter - Dank Campo MD - 06/03/2024 9:58 AM EST Patient left message about prozac dose. Dose increased to 40 mg last week and script was sent to [facility]. It will take 2-3 weeks to notice an improvement in mood and continue at 40 mg. [facility] Medical [id number] Miscellaneous Notes* Telephone Encounter - Dank Campo MD - 06/03/2024 9:58 AM EST Patient left message about prozac dose. Dose increased to 40 mg last week and script was sent to [facility]. It will take 2-3 weeks to notice an improvement in mood and continue at 40 mg. documented in this encounterUniversity Health Lakewood Medical [id number] History of Present illness Narrative* Dexter Krishnamurthy, DPM - 05/29/2024 2:45 PM EST Images [...] 10 days, Disp: 9 each, Rfl: 3 [employer] Unifine Pentips 31G X 5 MM misc, [...] by mouth, Disp: , Rfl: glucose blood (The Kendal GroupTouch Ultra) test strip, Fsbs bid, Disp: 200 each, Rfl: 3 insulin glargine (Lantus SoloStar) 100 UNIT/ML pen, Inject 65 Units under the skin at bedtime, Disp: 60 mL, Rfl: 3 insulin lispro (HumaLOG) 100 UNIT/ML injection, INJECT 12 UNITS BREAKFAST, 25 UNITS LUNCH/ DINNER PLUS CORRECTIONS OF 1:30 > 150MG/DL ( MAX 100 UNITS A DAY), Disp: 90 mL, Rfl: 3 Lancets (The Kendal GroupTouch Delica Plus [id number]) [facility], use to test BLOOD SUGAR THREE TIMES [...] 07/2020 Right PCR ROTATOR CUFF REPAIR Bilateral [phone] Wendy Crowell ROTATOR CUFF REPAIR 04/2024 SHOULDER [...] understanding. Dexter Krishnamurthy DPM documented in this encounterUniversity Health Lakewood Medical [id number] Instructions* Patient Instructions* Dexter Krishnamurthy DPM - 05/29/2024 2:45 PM EST As noted documented in this encounterUniversity Health Lakewood Medical [id number] History of Present illness Narrative* Valentine Simon, PT - 05/29/2024 9:00 AM EST Physical Therapy Treatment Visit Patient Name: Darrin Seymour Today's Date: 05/29/2024 Encounter Diagnoses Name Primary? Left shoulder pain, unspecified chronicity Yes S/P arthroscopy of left shoulder Visit number: 4 Timed Code Treatment Minutes: 30 minutes Total Treatment Time: 40 minutes Time In: 0900 Time Out: 09 History: Pt underwent surgery for left RCR and bicep tendon on 04/25/24,. Pt has been compliant withuse of sling. Now to begin PT. Pt states not taking any pain medication or OTC meds for shoulder. Sleeping on couch which was difficult but now getting better. Just had abductor pillow removed. No complaints of pain. Precautions: [place] Subjective: Pt reports he has probably using [...] to be instructed in home exercise program. [employer] Goals: To be met in 10 weeks [...] below. Date: documented in this encounterUniversity Health Lakewood Medical CenterUggizjoxaz77-53-6537 History of Present illness Narrative* Dank Campo MD - 05/28/2024 8:21 AM ESTAssociated Problem(s): Type 2 diabetes mellitus with stage 3b chronic kidney disease, with long-term current use of insulin (HCC) ([facility]) Renal function stable. Continue lisinopril and ozempic. * Dank Campo MD - 05/28/2024 8:19 AM ESTAssociated Problem(s): Type 2 diabetes mellitus with diabetic polyneuropathy, with long-term current use of insulin ([facility]) BS improving and follow up with endo. * Dank Campo MD - 05/28/2024 8:19 AM ESTAssociated Problem(s): Lumbar spondylosis Pain starting to worsen and follow with pain management. Continue celebrex. * Dank Campo MD - 05/28/2024 8:18 AM ESTAssociated Problem(s): JARAD (generalized anxiety disorder) ([facility]) Worsening symptoms and increase prozac. Warned will take 2-3 weeks to notice improvement in mood. Use valium PRN. * Dank Campo MD - 05/28/2024 8:18 AM ESTAssociated Problem(s): Benign essential hypertension ([facility]) BP controlled and monitor PRN. Discussed DASH [...] (PROzac) 40 MG capsule documented in this [facility]11-25-2024 Telephone encounter Note* Telephone Encounter - Slime Sanches - 05/12/2024 1:40 PM EST $35.00 copay / prior-auth needed. [facility] [id number] Miscellaneous Notes* Telephone Encounter - Slime Sanches - 05/12/2024 1:40 PM EST $35.00 copay / prior-auth needed. documented in this [facility]11-22-2024 History of Present illness Narrative* TK [...] urgent evaluation. documented in this encounterUniversity Health Lakewood Medical [id number] Instructions* Patient Instructions* TK Cantu - 05/09/2024 [...] schedule as soon aspossible documented in this encounterUniversity Health Lakewood Medical [id number] History of Present illness Narrative* Ashli Ross DO - 04/29/2024 11:31 AM ESTAssociated Problem(s): Type 2 diabetes mellitus with diabetic polyneuropathy, with long- term current use of insulin ([facility]) During the appointment today all pertinent [...] hypotension Osteoarthritis of knee Benign essential hypertension ([facility]) Primary osteoarthritis, right shoulder Prostate cancer ([facility]) Proteinuria Hypercholesteremia ([facility]) Renal failure 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, with long-term current use of insulin ([facility]) Long-term insulin use ([facility]) Class 2 severe obesity due to excess calories with serious comorbidity and body mass index (BMI) of35.0 to 35.9 in adult ([facility]) Lumbar spondylosis Bilateral leg edema Encounter for long-term (current) use of medications Obesity (BMI 30-39.9) FRANK (obstructive sleep apnea) Chronic fatigue Right hand pain Hypersomnia Fasciculations Memory impairment Bilateral carpal tunnel syndrome Foot drop, right Lumbar radiculopathy Cervical radiculopathy Family history of Parkinson's disease JARAD (generalized anxiety disorder) (CMS/[facility]) Type 2 diabetes mellitus with stage 3a chronic kidney disease, with long-term current use of insulin ([facility]) ([facility]) Social History Tobacco Use Smoking status: [...] polyneuropathy, with long-term current use of insulin ([facility]) During the appointment today all pertinent [...] A1C) docked device (Completed) Long-term insulin use ([facility]) Class 2 severe obesity due to excess calories with serious comorbidity and body mass index (BMI) of35.0 to 35.9 in adult ([facility]) - Primary Type 2 diabetes mellitus with stage 3a chronic kidney disease, with long-term current use of insulin ([facility]) ([facility]) Follow up in about 3 months (around 07/30/2024) for Recheck. Patient's Medications New Prescriptions No medications on file Previous Medications ASPIRIN 81 MG CHEWABLE TABLET Chew 81 mg Daily CELECOXIB (CELEBREX) 200 MG CAPSULE TAKE 1 CAPSULE BY MOUTH TWICE DAILY CONTINUOUS BLOOD GLUC SENSOR (DEXCOM G7 SENSOR) [facility] Inject 1 Device under the skin See administration instructions Change every 10 days CYCLOBENZAPRINE (FLEXERIL) 10 MG TABLET Take 10 mg by mouth in the morning and 10 mg in the eveningand 10 mg before bedtime. [facility] UNIFINE PENTIPS 31G X 5 MM [facility] USE DIRECTED FOUR TIMES DAILY FLUOROMETHOLONE (FML) [...] STRIP Fsbs bid LANCETS (ONETOUCH DELICA PLUS [id number]) [facility] use to test BLOOD SUGAR THREE TIMES [...] with the patient today. documented in this encounterUniversity Health Lakewood Medical [id number] Telephone encounter Note* Telephone Encounter - Fredy Boswell NP - 04/24/2024 2:50 PM EST Post op pain rx. PDMP reviewed [facility] [id number] Miscellaneous Notes* Telephone Encounter - Fredy Boswell NP - 04/24/2024 2:50 PM EST Post op pain rx. PDMP reviewed documented in this encounterNOMissouri Delta Medical [id number] Telephone encounter Note* Telephone Encounter - Dank Campo MD - 04/23/2024 12:24 PM EST BP very low and patient having symptoms. Decrease lisinopril to once a day and continue to monitor. [facility] [id number] Miscellaneous Notes* Telephone Encounter - Dank Campo MD - 04/23/2024 12:24 PM EST BP very low and patient having symptoms. Decrease lisinopril to once a day and continue to monitor. documented in this encounterUniversity Health Lakewood Medical [id number] History of Present illness Narrative* TK Cantu [...] Iron Infusions on going per [facility] , Low back pain Migraine (CMS/HCC) Otitis externa Prostate cancer (CMS/HCC) 2018 radiation PVC (premature ventricular contraction) Right shoulder pain Rotator cuff tear, right 2019 Sleep apnea PAST SURGICAL HISTORY: Past Surgical History: Procedure Laterality Date APPENDECTOMY 1971 CHOLECYSTECTOMY COLONOSCOPY COLONOSCOPY 2016 EGD GALLBLADDER SURGERY 03/2021 HEEL SPUR SURGERY Right 2011 [place] KNEE SURGERY x2 arthroscopy OTHER SURGICAL HISTORY 07/31/2017 RM and T-tube, Timmis OTHER SURGICAL HISTORY Right 07/2020 Right PCR ROTATOR CUFF REPAIR Bilateral [id number] Wendy Crowell ROTATOR CUFF REPAIR SHOULDER ARTHROSCOPY [...] 10 mg, Oral, 3 times daily Drug [place] Unifine Pentips 31G X 5 MM misc USE DIRECTED FOUR TIMES DAILY fluorometholone (FML) 0.1 % ophthalmic suspension instill 1 (ONE) DROP IN BOTH EYES FOUR TIMES DAILY FOR 7 DAYS then instill 1 (ONE) DROP IN BOTH EYES TWICE DAILY FOR 7 DAYS FLUoxetine (PROZAC) 20 mg, Oral, Daily gabapentin (Neurontin) 100 MG capsule Oral glucose blood (SocialSciuch Ultra) test strip Fsbs bid insulin lispro (HumaLOG) 100 UNIT/ML injection INJECT 5-10 UNITS BREAKFAST, 30 UNITS LUNCH/ DINNER PLUS CORRECTIONS OF 1:30 > 150MG/DL ( MAX 100 UNITS A DAY) Lancets ([employer] Delica Plus [id number]) misc use to test BLOOD SUGAR THREE [...] proposed surgeryscheduled. (L) SHOULDER SCOPE 04/25 @FOREIGN ALAS INSTRUCTIONS GIVEN TODAY 04/08 @8:15AM [facility] DR. CAMPO CLEARANCE ; OBTAINED ULTRASLING GIVEN AT PRIOR APPT [facility] NOTIFIED PA APPROVED ([id number]) Follow up for 05/09 @9am w/[place]ish [place]. documented in this [facility]10-08-2024 Telephone encounter Note* Telephone Encounter - Jr. Bassem Hdez DO - 03/25/2024 8:05 AM EDT Case cancelled as he took aspirin and celebrex [facility] Work Phone: [phone]) 701-702010-08-2024 Miscellaneous Notes* Telephone Encounter - Jitendra Hdez DO - 03/25/2024 8:05 AM EDT Case cancelled as he took aspirin and celebrex * Telephone Encounter - Fredy Boswell NP - 03/24/2024 6:38 PM EDT Post op pain rx. PDMP reviewed documented in this [facility]10-07-2024 Telephone encounter Note* Telephone Encounter - Fredy Boswell NP - 03/24/2024 6:38 PM EDT Post op pain rx. PDMP reviewed [facility] [id number] Telephone encounter Note* Telephone Encounter - TK Cantu - 03/18/2024 2:20 PM EDT Reviewed Pre-op labs.. Abdnormal renal function and potassium level. Labs in chart... Dr. Campo..are you willing to address? [facility] Healthcare Work Phone: 1(356) 452-674710-01-2024 Miscellaneous Notes* Telephone Encounter - TK Cantu - 03/18/2024 2:20 PM EDT Reviewed Pre-op labs.. Abdnormal renal function and potassium level. Labs in chart... Dr. Campo..are you willing to address? documented in this encounterUniversity Health Lakewood Medical [id number] History of Present illness Narrative* TK Cantu [...] Iron Infusions on going per [facility] , Low back pain Migraine (CMS/HCC) Otitis externa Prostate cancer (CMS/HCC) 2018 radiation PVC (premature ventricular contraction) Right shoulder pain Rotator cuff tear, right 2020 Sleep apnea PAST SURGICAL HISTORY: Past Surgical History: Procedure Laterality Date APPENDECTOMY 1971 CHOLECYSTECTOMY COLONOSCOPY COLONOSCOPY 2016 EGD GALLBLADDER SURGERY 03/2021 HEEL SPUR SURGERY Right 2011 [place] KNEE SURGERY x2 arthroscopy OTHER SURGICAL HISTORY 07/31/2017 RM and T-tube, Timmis OTHER SURGICAL HISTORY Right 07/2020 Right PCR ROTATOR CUFF REPAIR Bilateral [id number] RJitendra Crowell ROTATOR CUFF REPAIR SHOULDER ARTHROSCOPY [...] mg, Oral, 3 times daily PRN Drug [place] Unifine Pentips 31G X 5 MM misc USE DIRECTED FOUR TIMES DAILY fluorometholone (FML) 0.1 % ophthalmic suspension instill 1 (ONE) DROP IN BOTH EYES FOUR TIMES DAILY FOR 7 DAYS then instill 1 (ONE) DROP IN BOTH EYES TWICE DAILY FOR 7 DAYS FLUoxetine (PROZAC) 20 mg, Oral, Daily glucose blood (SocialSciuch Ultra) test strip Fsbs bid insulin lispro (HumaLOG) 100 UNIT/ML injection INJECT 5-10 UNITS BREAKFAST, 30 UNITS LUNCH/ DINNER PLUS CORRECTIONS OF 1:30 > 150MG/DL ( MAX 100 UNITS A DAY) Lancets (The Kendal GroupTouch Delica Plus [id number]) [facility] use to test BLOOD SUGAR THREE TIMES [...] ULTRASLING GIVEN TODAY ARTHREX NOTIFIED PA APPROVED ([id number]) Patient presents today for fitting of left [...] Follow up for 04/08 @9am w/tish in [place]. documented in this encounterUniversity Health Lakewood Medical CenterExqzorjfvc33-90-1505 Telephone encounter Note* Telephone Encounter - Ashli [...] was waiting on patient assistance. [facility] CenterNrfzqctfks22-51-7920 Miscellaneous Notes* Telephone Encounter - Ashli Ross [...] patient assistance. documented in this encounterUniversity Health Lakewood Medical [id number] History of Present illness Narrative* Jr. Bassem Hdez, - 03/03/2024 2:30 PM EDT Images from the original note were not included. HISTORY OF PRESENT ILLNESS: EST PT Milad Seymour is an 68 y.o. @ male. EST PT RECHECK LT SHOULDER INJURY 04/21/23 (~10MO) RECENT A1C 6.8 ON 01/31/[address] ROSS (IN 01/31/24 ENCOUNTER) XRAY LT SHOULDER TODAY EPIC 03/03/24 XRAY CHANGE 04/30/23 CT ARTHROGRAM 07/24/23 [facility] [place] MRI; UNABLE TO DUE TO CLAUSTROPHOBIA [...] mg, Oral, 3 times daily PRN Drug [place] Unifine Pentips [facility]G X [facility] FOUR TIM[facility] DAILY fluorometholone (FML) 0.1 % ophthalmic suspension instill 1 (ONE) DROP IN BOTH EYES FOUR TIMES DAILY FOR 7 DAYS then instill 1 (ONE) DROP IN BOTH EYES TWICE DAILY FOR 7 DAYS FLUoxetine (PROZAC) 20 mg, Oral, Daily glucose blood (SocialSciuch Ultra) test strip Fsbs bid insulin lispro (HumaLOG) 100 UNIT/ML injection INJECT 5-10 UNITS BREAKFAST, 25 UNITS LUNCH/ DINNER PLUS CORRECTIONS OF 1:30 > 150MG/DL ( MAX 100 UNITS A DAY) Lancets (The Kendal GroupTouch Delica Plus [id number]) [facility] use to test BLOOD SUGAR THREE TIMES [...] living and we have recommended surgical intervention. Bassem Hdez D.O. documented in this encounterUniversity Health Lakewood Medical [id number] Miscellaneous Notes* Telephone Encounter - Olive Juárez - 02/28/2024 8:30 AM EDT PAP mask and supplies order with supportive documentation faxed to [facility]. documented in this encounterFirelands Regional Medical Center09-12-2024 Telephone encounter Note* Telephone Encounter - Olive Juárez - 02/28/2024 8:30 AM EDT PAP mask and supplies order with supportive documentation faxed to [facility]. [facility]09-09-2024 History of Present illness Narrative* Hanna Butcher MD - 02/25/2024 10:30 AM EDT Images from the original note were not included. [address] [place] [address] Patient: Milad Seymour Date of : 1955 [...] PM 12/14/2023 12:21 AM 02/25/2024 10:00 AM [place] Sleepiness Scale Sitting and Reading 3 3 [...] Anemia Unknown Arthritis Benign prostatic hyperplasia Cancer ([facility]) PROSTATE COPD (chronic obstructive pulmonary disease) ([facility]) Unknown Diabetes mellitus type 2, controlled ([facility]) GERD (gastroesophageal reflux disease) History of placement of ear tubes right ear Hyperlipidemia Hypertension Jaundice 03/30/21 FRANK (obstructive sleep apnea) cpap Visual impairment glasses Past Surgical History: Procedure Laterality Date APPENDECTOMY CHOLECYSTECTOMY 04/06/21 COLONOSCOPY 2019 FOOT SURGERY heel spur right KNEE SURGERY bilateral scope LAPAROSCOPIC EPIGASTRIC HERNIA REPAIR REPAIR ROTATOR CUFF SHOULDER Right 07/19/2020 Performed by Karsten Crowell DO at [facility] REPAIR ROTATOR CUFF SHOULDER Right 12/10/2017 Performed by Karsten Crowell DO at [facility] SHOULDER SURGERY bilateral TONSILLECTOMY 06/1970 TYMPANOSTOMY [...] Activity Alcohol Use No documented in this encounterCommunity Regional Medical CenterProlong Pharmaceuticals [id number] Instructions* Patient Instructions* Hanna Butcher MD - 02/25/2024 10:30 AM EDT 1. Continue with current pressure setting 2. Reviewed data download 3. LDCT for lung cancer screening 4. Follow up 4 months documented in this encounterFirelands Regional Medical Center08-19-2024 Telephone encounter Note* Telephone Encounter - Walt Newton - 02/04/2024 4:27 PM EDT Like self pay shoes [facility] [id number] Miscellaneous Notes* Telephone Encounter - Walt Newton - 02/04/2024 4:27 PM EDT Like self pay shoes documented in this encounterUniversity Health Lakewood Medical CenterDutllfqect54-56-4765 Hospital Discharge instructions Patient Education 02/04/2024 12:42:37 [...] treatment? Where to find more information The [place] [employer]: www.cancer.org [place] [employer]: www.auanet.org Contact a health care [...] provider. Document Revised: 11/28/2021 Document Reviewed: 11/28/2021 4meee Patient Education 2022 [facility]. Follow Up Care 02/12/2023 10:16:19 With:NICOLA RAYMUNDO, Peterson Owens, URL Address: [facility] [address] [place] [address]- [phone] When: Unknown [facility] 07-18-2024 Miscellaneous Notes* Telephone Encounter - Oskar Contreras MD - 01/03/2024 12:57 PM EDT Patient seen by SK. Has follow up with Dr. Butcher on 02/25/2024. Probably should wait for that visit before deciding on how best to proceed with care. Titration study on 12/13/2023 (Zxkeyw=448.0 lbs; BMI=36.9 kg/m2) DIAGNOSIS: Central Sleep Apnea [...] may also be considered. documented in this encounterCommunity Regional Medical CenterNanoVibronix [facility] HospitalBtmsek02-26-5641 Telephone encounter Note* Telephone Encounter - Oskar Contreras MD - 01/03/2024 12:57 PM EDT Patient seen by SK. Has follow up with Dr. Butcher on 02/25/2024. Probably should wait for that visit before deciding on how best to proceed with care. Titration study on 12/13/2023 (Htltcz=946.0 lbs; BMI=36.9 kg/m2) DIAGNOSIS: Central Sleep Apnea [...] an oxygen titration may also be considered. [employer] Work Phone: 1(284) 959-337906-20-2024 Miscellaneous Notes* Telephone Encounter - Aliza Escalera - 12/06/2023 1:55 PM EDT Pt notified per SK that sleep aid has been called into [facility] [place] in [place] for him to picker tender helper and take with him the night of his upcoming sleep study. Pt voice understanding and was very appreciative. documented in this encounterFirelands Regional Medical Center06-20-2024 Telephone encounter Note* Telephone Encounter - Aliza Escalera - 12/06/2023 1:55 PM EDT Pt notified per SK that sleep aid has been called into [facility] [place] in [place] for him to picker tender helper and take with him the night of his upcoming sleep study. Pt voice understanding and was very appreciative. [facility]06-20-2024 History of Present illness Narrative* SONNY Denis - 12/06/2023 12:43 PM EDT Discussed Ambien [address] Marmolejo for night of sleep study. Ordered. SONNY Denis 12/06/23 1245 documented in this encounterFirelands Regional Medical Center06-19-2024 Miscellaneous Notes* Telephone Encounter - Aliza Escalera - 12/05/2023 9:58 AM EDT Pt came into office, requesting help to reach the sleep lab to get his sleep study rescheduled. States he had to leave the date he was originally schedule due to the lab at [facility] being too hot. Says having hard time reaching sleep lab to r/s, so told him would send them a message to call him. Pt says willing to go to [place] or [place]. Chat sent to sleep lab Hub to contact pt at [phone]. documented in this [facility]06-19-2024 Telephone encounter Note* Telephone Encounter - Aliza Escalera - 12/05/2023 9:58 AM EDT Pt came into office, requesting help to reach the sleep lab to get his sleep study rescheduled. States he had to leave the date he was originally schedule due to the lab at [facility] being too hot. Says having hard time reaching sleep lab to r/s, so told him would send them a message to call him. Pt says willing to go to [place]. Chat sent to sleep lab Hub to contact pt at [phone]. [facility]03-11-2024 Miscellaneous Notes* Telephone Encounter - Aliza Escalera - 08/27/2023 10:11 AM EDT ----- Message from SONNY Denis sent at 08/24/2023 10:25 AM EST ----- EF >45% ok for ASV * Telephone Encounter - Aliza Escalera - 08/27/2023 10:11 AM EDT Noted below in sleep lab encounter and on appt desk for techs for titration appt documented in this encounterFirelands Regional Medical Center03-11-2024 Telephone encounter Note* Telephone Encounter - Aliza Escalera - 08/27/2023 10:11 AM EDT ----- Message from SONNY Denis sent at 08/24/2023 10:25 AM EST ----- EF >45% ok for ASV [facility] [employer] [id number] Telephone encounter Note* Telephone Encounter - Aliza Escalera - 08/27/2023 10:11 AM EDT Noted below in sleep lab encounter and on appt desk for techs for titration appt [employer]03-01-2024 Miscellaneous Notes* Telephone Encounter - Zoraida Rosario [...] Echo prior to titration documented in this encounterSt Johnsbury HospitalALLO Communications03-01-2024 Telephone encounter Note* Telephone Encounter - Zoraida Rosario - 08/17/2023 9:53 AM EST 08/15 received CPAP order 08/16 Scheduled CPAP at [facility] 6 Confirmation mailed and emailed [employer] CPAP order and 08/15 Loree notes in epic With TCO2 monitoring. Please obtain baseline in supine position. 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 Cleaning supplies with soap and water. [place] Sleepiness Scale: Sitting and Reading: (!) Moderate [...] Benign prostatic hyperplasia Cancer ([facility]) PROSTATE COPD (chronic obstructive pulmonary disease) ([facility]) Unknown Diabetes mellitus type 2, controlled ([facility]) GERD (gastroesophageal reflux disease) History of placement [...] Standing Expiration Date: 08/15/2024 Order Specific Question: [facility] required diagnosis: Answer: Personal history of nicotine [...] titration Order Specific Question: Follow Up Answer: [facility] Sleep Medicine to read and [...] not to drive if sleepy, and to caul fat puller if sleepiness occurs while driving. Above [...] that have escaped final proofreading. Gregoria Ralph [facility] Office: [phone] 2:57 PM on 08/15/2023 CC: MD Gregoria GONZALEZ APRN-CNP 08/16/23 [id number] documented in this encounterSt Johnsbury HospitalGewara [id number] Instructions* Patient Instructions* SONNY Denis - 08/15/2023 1:15 PM EST If you re looking for general health and wellness resources, please visit [email or web address]. documented in this encounterFirelands Regional Medical Center02-15-2024 Miscellaneous Notes* Telephone Encounter - Aliza Annamarie Escalera - 08/02/2023 5:34 PM EST Received sleep referral from Valeria Mckeon NP. Pt is already an established pt and last saw in 2020- was recommended to follow up with KW. However he was a no show for his last 2 appt with our office. Chat to [place] to advise if still to schedule appt. documented in this encounterFirelands Regional Medical Center02-15-2024 Telephone encounter Note* Telephone Encounter - Aliza Escalera - 08/02/2023 5:34 PM EST Received sleep referral from Valeria Mckeon NP. Pt is already an established pt and last saw in 2020- was recommended to follow up with KW. However he was a no show for his last 2 appt with our office. Chat to [place] to advise if still to schedule appt. [facility]02-12-2024 History of Present illness Narrative* Ashli Ross DO - 07/30/2023 12:53 PM ESTAssociated Problem(s): Type 2 diabetes mellitus with diabetic polyneuropathy, with long-term current use of insulin ([facility]) During the appointment today all pertinent [...] Breakfast Lunch Dinner Snacks Drinks Premade meal ([place] and dressing) (Mac and cheese) Protein shake [...] polyneuropathy, with long-term current use of insulin ([facility]) During the appointment today all pertinent [...] index (BMI) of36.0 to 36.9 in adult ([facility]) - Primary Follow up in about [...] ( MAX 100 UNITS A DAY) LANCETS (Local Plant SourceTOUCH DELICA PLUS [id number]) MISC use to test BLOOD SUGAR THREE [...] BLOOD GLUC SENSOR (FREESTYLE CORNELIUS 2 SENSOR) [facility] Use as directed LOPERAMIDE (IMODIUM) 2 MG CAPSULE Take 2 mg by mouth in the morning and 2 mg before bedtime. METHOCARBAMOL (ROBAXIN) 750 MG TABLET Take 1 tablet (750 mg) by mouth in the morning and 1 tablet (750 mg) at noon and 1 tablet (750 mg) in the evening and 1 tablet (750 mg) before bedtime. documented in this encounterUniversity Health Lakewood Medical CenterCxofjjwghk93-93-2713 Procedure [facility]10[facility] Evaluation note* Encounter Date Diagnosis Assessment Notes Treatment Notes Treatment Clinical Notes Mar, GERD (gastroesophageal reflux di sease) (ICD-10 - K21.9) The patient continues to complain of ongoing regurgitation. He is taking Lansoprazole 30 mg dialy & we will increase this to 30 mg bid. Mar,Hemorrhoids (ICD-10 - K64.9) Mar,lternating constipation and diarrhea (ICD-10 - R19.8) [employer] Other 10-03-2023 Evaluation note* Encounter Date Diagnosis Assessment Notes Treatment Notes Treatment Clinical Notes Mar, Gastroesophageal reflux disease with esophagitis (ICD-10 - K21.0) [employer] Other 08-28-2023 Hospital Discharge instructions Patient Education [...] greater thelikelihood that the cancer will spread. [place] 6 or lower: This indicates that the cancer cells look similar to normal prostate cells (well differentiated). [place] 7: This indicates that the cancer cells look somewhat similar to normal prostate cells (moderately differentiated). [place] 8, 9, or 10: This indicates that [...] stress of having cancer. General instructions Take wudo-jhg-dlbfscq and prescription medicines only as told by your health care provider. If you have to go to the hospital, notify your cancer specialist (oncologist). Keep all follow-up visits. This is important. Where to find more information [place] Cancer [employer]: www.cancer.org [place] Society of Clinical Oncology: www.cancer.net National Cancer [place]: www.cancer.gov Contact a health care provider if: [...] provider. Document Revised: 08/31/2021 Document Reviewed: 08/31/2021 ElseAgendize Patient Education 2022 [facility]. Follow Up Care 02/03/2022 09:06:37 With:NICOLA RAYMUNDO, Peterson Owens, URL Address: [facility] [address], [place] [address] [phone] When: Unknown Comments:1 yr w/ PSA [facility] 04-05-2023 Evaluation note* Encounter Date Diagnosis Assessment Notes Treatment Notes Treatment Clinical Notes Sep, Gastroesophageal reflux disease with esophagitis (ICD-10 - K21.0) [employer] Other 02-06-2023 [facility]Ohio[facility] Evaluation note* Encounter Date Diagnosis Assessment Notes Treatment Notes Treatment Clinical Notes Jul, Diarrhea (ICD-10 - R19.7) Jul,ERD (gastroesophageal reflux disease) (ICD-10 - K21.9) Jul,Hemorrhoids (ICD-10 - K64.9)PATIENT TO START ANUSOL CREAM USE SITZ BATH NEEDED Jul,ysphagia (ICD-10 - R13.10) [employer] Other 10-28-2022 NotePROCEDURE: XR FOOT RT MIN 3 VIEWS COMPARISON: None. HISTORY: Pain in right foot FINDINGS: BONES:No acute fracture or dislocation. Persistent hammertoe deformities. Moderate hallux valgus. 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 Bulky enthesopathic spurring of the calcaneus SOFT TISSUES:Negative. No visible soft tissue swelling. EFFUSION:None visible. OTHER: Negative. IMPRESSION: Degenerative changes Electronically authenticated by: SORIN CAMARGO Date: 2022-04-14 18:01[facility]08-19-2022 Hospital Discharge instructions Patient Education 02/03/2022 [...] urethra. Follow these instructions at home: Take cnte-lde-tzakitm and prescription medicines only as told by [...] 06/04/2006 Document Revised: 04/29/2019 Document Reviewed: 07/09/2017 4meee Patient Education 2020 [employer] Follow Up Care 08/05/2021 10:59:30 With:NICOLA RAYMUNDO, Peterson Owens, URL Address: [facility] [address], [place] [address]- When:1 year Comments:W/ PSA [facility] 08-17-2021 NoteHNO ID: [id number] Author: Fawad Diaz MD Service: ? Author [...] Diaz MD cc: Dank Campo MD (DrC) [address] [place] [address] Dr. Petersen Portions of the above note extracted and edited from previous visit as well as active information included in the EMR.[facility] 11-04-2020 NoteHNO ID: [id number] Author: Fawad Diaz MD Service: ? Author [...] ASSESSMENT/PLAN:DIAGNOSIS: Prostate adenocarcinoma, initial PSA 14.65, biopsy [place] score 3 + 3 = 6 (grade [...] Fawad Diaz MD cc: Dank Campo MD ([facility]) [address] [place] [address] Dr[facility] Future Appointments Appointment Date:02/12/2023 09:15:00 AM Scheduled Provider:Peterson PETERSEN MD Location:[facility] Appointment Type:URO Office Visit Diagnostic Tests Pending * PSA Total 02/03/22 [facility] evaluation + Plan note Future Appointments Appointment Date:02/12/2023 09:15:00 AM Scheduled Provider:Peterson PETERSEN MD Location:[facility] Appointment Type:URO Office Visit [facility] evaluation + Plan note Future Appointments Appointment Date:02/15/2024 08:15:00 AM Scheduled Provider:Peterson PETERSEN MD Location:[facility] Appointment Type:URO Office Visit Diagnostic Tests Pending * PSA Total 02/12/23 [facility] evaluation + Plan note Future Appointments Appointment Date:02/04/2024 11:30:00 AM Scheduled Provider:Peterson PETERSEN MD Location:[facility] Appointment Type:URO Office Visit [facility] evaluation + Plan note Future Appointments Appointment Date:02/09/2025 08:45:00 AM Scheduled Provider:Peterson PETERSEN MD Location:[facility] Appointment Type:URO Office Visit Diagnostic Tests Pending * PSA Total 02/04/24 [facility] evaluation + Plan note Future Appointments Appointment Date:02/05/2026 08:30:00 AM Scheduled Provider: Location:[facility] Appointment Type:URO Nurse Visit Appointment Date:02/12/2026 08:30:00 AM Scheduled Provider:Peterson PETERSEN MD Location:[facility] Appointment Type:URO Office Visit Diagnostic Tests Pending * PSA Total 02/09/25 [facility] evaluation noteNo assessment information available [facility] Work Phone: evaluation noteNo InformationNojohn [facility] MDCapsule Other Evalutgtcb note* Diagnosis Class 2 severe obesity due to excess calories with serious comorbidity and body mass index (BMI) of36.0 to 36.9 in adult ([facility])- Primary Type 2 diabetes mellitus with diabetic polyneuropathy, with long-term current use of insulin ([facility]) documented in [facility] encounter [facility]* Diagnosis Onset Date Resolution Status H/O rotator cuff surgery acute [facility] Work Phone: Evaluation note* Diagnosis Onset Date Resolution Status Diarrhea acuteGERD (gastroesophageal reflux disease)acute [facility] Work Phone: Evaluation note* Diagnosis Preop examination- Primary Unspecified pre-operative examination documented in this encounter [facility]* Diagnosis Internal derangement of left shoulder- Primary documented in this encounter [facility]* Diagnosis Type 2 diabetes mellitus with diabetic polyneuropathy, with long-term current use of insulin ([facility])- Primary Class 2 severe obesity due to excess calories with serious comorbidity and body mass index (BMI) of35.0 to 35.9 in adult ([facility])- Primary Type 2 diabetes mellitus with diabetic polyneuropathy, with long-term current use of insulin ([facility]) Long-term insulin use ([facility]) Lumbar spondylosis- Primary Lumbosacral spondylosis without myelopathy Benign essential hypertension ([facility]) Essential hypertension, benign Bilateral leg edema Edema Class 2 severe obesity due to excess calories with serious comorbidity and body mass index (BMI) of36.0 to 36.9 in adult ([facility])- Primary Type 2 diabetes mellitus with diabetic polyneuropathy, with long-term current use of insulin ([facility]) Benign essential hypertension ([facility])- Primary Essential hypertension, benign Lumbar spondylosis Lumbosacral spondylosis without myelopathy Bilateral leg edema Edema Type 2 diabetes mellitus with diabetic polyneuropathy, with long-term current use of insulin ([facility]) Hypercholesteremia ([facility]) Pure hypercholesterolemia Encounter for long-term (current) use of medications Encounter for long-term (current) use of other medications Obesity (BMI 30-39.9) Body mass index [BMI] 36.0-36.9, adult (Z68.36) JARDA (generalized anxiety disorder) ([facility])- Primary Generalized anxiety disorder Benign essential hypertension ([facility]) Essential hypertension, benign Class 2 severe obesity due to excess calories with serious comorbidity and body mass index (BMI) of35.0 to 35.9 in adult ([facility])- Primary Type 2 diabetes mellitus with diabetic polyneuropathy, with long-term current use of insulin ([facility]) Long-term insulin use ([facility]) Benign essential hypertension ([facility])- Primary Essential hypertension, benign JARAD (generalized anxiety disorder) ([facility]) Generalized anxiety disorder Bilateral leg edema Edema Lumbar spondylosis Lumbosacral spondylosis without myelopathy Benign essential hypertension ([facility])- Primary Essential hypertension, benign JARAD (generalized anxiety disorder) ([facility]) Generalized anxiety disorder Lumbar spondylosis Lumbosacral spondylosis without myelopathy Bilateral leg edema Edema Prostate cancer ([facility]) Malignant neoplasm of prostate Type 2 diabetes mellitus with hyperglycemia, with long-term current use of insulin ([facility]) Class 2 severe obesity due to excess calories with serious comorbidity and body mass index (BMI) of35.0 to 35.9 in adult ([facility])- Primary Type 2 diabetes mellitus with hyperglycemia, with long-term current use of insulin ([facility]) Type 2 diabetes mellitus with diabetic polyneuropathy, with long-term current use of insulin ([facility]) Long-term insulin use ([facility]) Type 2 diabetes mellitus with stage 3a chronic kidney disease, with long-term current use of insulin ([facility]) ([facility]) Pre-op examination- Primary Preop examination Unspecified pre-operative examination documented in this encounter [facility] HealthcareEvaluation note* Diagnosis Type 2 diabetes mellitus with diabetic polyneuropathy, with long-term current use of insulin ([facility])- Primary Class 2 severe obesity due to excess calories with serious comorbidity and body mass index (BMI) of35.0 to 35.9 in adult ([facility])- Primary Type 2 diabetes mellitus with diabetic polyneuropathy, with long-term current use of insulin ([facility]) Long-term insulin use ([facility]) Lumbar spondylosis- Primary Lumbosacral spondylosis without myelopathy Benign essential hypertension ([facility]) Essential hypertension, benign Bilateral leg edema Edema Class 2 severe obesity due to excess calories with serious comorbidity and body mass index (BMI) of36.0 to 36.9 in adult ([facility])- Primary Type 2 diabetes mellitus with diabetic polyneuropathy, with long-term current use of insulin ([facility]) Benign essential hypertension ([facility])- Primary Essential hypertension, benign Lumbar spondylosis Lumbosacral spondylosis without myelopathy Bilateral leg edema Edema Type 2 diabetes mellitus with diabetic polyneuropathy, with long-term current use of insulin ([facility]) Hypercholesteremia ([facility]) Pure hypercholesterolemia Encounter for long-term (current) use of medications Encounter for long-term (current) use of other medications Obesity (BMI 30-39.9) Body mass index [BMI] 36.0-36.9, adult (Z68.36) JARAD (generalized anxiety disorder) ([facility])- Primary Generalized anxiety disorder Benign essential hypertension ([facility]) Essential hypertension, benign Class 2 severe obesity due to excess calories with serious comorbidity and body mass index (BMI) of35.0 to 35.9 in adult ([facility])- Primary Type 2 diabetes mellitus with diabetic polyneuropathy, with long-term current use of insulin ([facility]) Long-term insulin use ([facility]) Benign essential hypertension ([facility])- Primary Essential hypertension, benign JARAD (generalized anxiety disorder) ([facility]) Generalized anxiety disorder Bilateral leg edema Edema Lumbar spondylosis Lumbosacral spondylosis without myelopathy Benign essential hypertension ([facility])- Primary Essential hypertension, benign JARAD (generalized anxiety disorder) ([facility]) Generalized anxiety disorder Lumbar spondylosis Lumbosacral spondylosis without myelopathy Bilateral leg edema Edema Prostate cancer ([facility]) Malignant neoplasm of prostate Type 2 diabetes mellitus with hyperglycemia, with long-term current use of insulin ([facility]) Class 2 severe obesity due to excess calories with serious comorbidity and body mass index (BMI) of35.0 to 35.9 in adult ([facility])- Primary Type 2 diabetes mellitus with hyperglycemia, with long-term current use of insulin ([facility]) Type 2 diabetes mellitus with diabetic polyneuropathy, with long-term current use of insulin ([facility]) Long-term insulin use ([facility]) Type 2 diabetes mellitus with stage 3a chronic kidney disease, with long-term current use of insulin ([facility]) ([facility]) Essential (primary) hypertension ([facility]) Unspecified essential hypertension documented in this encounter [facility] HealthcareEvaluation note* Diagnosis Type 2 diabetes mellitus with diabetic polyneuropathy, with long-term current use of insulin ([facility])- Primary Class 2 severe obesity due to excess calories with serious comorbidity and body mass index (BMI) of35.0 to 35.9 in adult ([facility])- Primary Type 2 diabetes mellitus with diabetic polyneuropathy, with long-term current use of insulin ([facility]) Long-term insulin use ([facility]) Lumbar spondylosis- Primary Lumbosacral spondylosis without myelopathy Benign essential hypertension ([facility]) Essential hypertension, benign Bilateral leg edema Edema Class 2 severe obesity due to excess calories with serious comorbidity and body mass index (BMI) of36.0 to 36.9 in adult ([facility])- Primary Type 2 diabetes mellitus with diabetic polyneuropathy, with long-term current use of insulin ([facility]) Benign essential hypertension ([facility])- Primary Essential hypertension, benign Lumbar spondylosis Lumbosacral spondylosis without myelopathy Bilateral leg edema Edema Type 2 diabetes mellitus with diabetic polyneuropathy, with long-term current use of insulin ([facility]) Hypercholesteremia ([facility]) Pure hypercholesterolemia Encounter for long-term (current) use of medications Encounter for long-term (current) use of other medications Obesity (BMI 30-39.9) Body mass index [BMI] 36.0-36.9, adult (Z68.36) JARAD (generalized anxiety disorder) ([facility])- Primary Generalized anxiety disorder Benign essential hypertension ([facility]) Essential hypertension, benign Class 2 severe obesity due to excess calories with serious comorbidity and body mass index (BMI) of35.0 to 35.9 in adult ([facility])- Primary Type 2 diabetes mellitus with diabetic polyneuropathy, with long-term current use of insulin ([facility]) Long-term insulin use ([facility]) Benign essential hypertension ([facility])- Primary Essential hypertension, benign JARAD (generalized anxiety disorder) ([facility]) Generalized anxiety disorder Bilateral leg edema Edema Lumbar spondylosis Lumbosacral spondylosis without myelopathy Benign essential hypertension ([facility])- Primary Essential hypertension, benign JARAD (generalized anxiety disorder) ([facility]) Generalized anxiety disorder Lumbar spondylosis Lumbosacral spondylosis without myelopathy Bilateral leg edema Edema Prostate cancer ([facility]) Malignant neoplasm of prostate Type 2 diabetes mellitus with hyperglycemia, with long-term current use of insulin ([facility]) Class 2 severe obesity due to excess calories with serious comorbidity and body mass index (BMI) of35.0 to 35.9 in adult ([facility])- Primary Type 2 diabetes mellitus with hyperglycemia, with long-term current use of insulin ([facility]) Type 2 diabetes mellitus with diabetic polyneuropathy, with long-term current use of insulin ([facility]) Long-term insulin use ([facility]) Type 2 diabetes mellitus with stage 3a chronic kidney disease, with long-term current use of insulin ([facility]) ([facility]) Internal derangement of left shoulder- Primary Type 2 diabetes mellitus with diabetic polyneuropathy, with long-term current use of insulin ([facility]) documented in this encounter [facility] HealthcareEvaluation note* Diagnosis Type 2 diabetes mellitus with diabetic polyneuropathy, with long-term current use of insulin ([facility])- Primary Class 2 severe obesity due to excess calories with serious comorbidity and body mass index (BMI) of35.0 to 35.9 in adult ([facility])- Primary Type 2 diabetes mellitus with diabetic polyneuropathy, with long-term current use of insulin ([facility]) Long-term insulin use ([facility]) Lumbar spondylosis- Primary Lumbosacral spondylosis without myelopathy Benign essential hypertension ([facility]) Essential hypertension, benign Bilateral leg edema Edema Class 2 severe obesity due to excess calories with serious comorbidity and body mass index (BMI) of36.0 to 36.9 in adult ([facility])- Primary Type 2 diabetes mellitus with diabetic polyneuropathy, with long-term current use of insulin ([facility]) Benign essential hypertension ([facility])- Primary Essential hypertension, benign Lumbar spondylosis Lumbosacral spondylosis without myelopathy Bilateral leg edema Edema Type 2 diabetes mellitus with diabetic polyneuropathy, with long-term current use of insulin ([facility]) Hypercholesteremia ([facility]) Pure hypercholesterolemia Encounter for long-term (current) use of medications Encounter for long-term (current) use of other medications Obesity (BMI 30-39.9) Body mass index [BMI] 36.0-36.9, adult (Z68.36) JARAD (generalized anxiety disorder) ([facility])- Primary Generalized anxiety disorder Benign essential hypertension ([facility]) Essential hypertension, benign Class 2 severe obesity due to excess calories with serious comorbidity and body mass index (BMI) of35.0 to 35.9 in adult ([facility])- Primary Type 2 diabetes mellitus with diabetic polyneuropathy, with long-term current use of insulin ([facility]) Long-term insulin use ([facility]) Benign essential hypertension ([facility])- Primary Essential hypertension, benign JARAD (generalized anxiety disorder) ([facility]) Generalized anxiety disorder Bilateral leg edema Edema Lumbar spondylosis Lumbosacral spondylosis without myelopathy Benign essential hypertension ([facility])- Primary Essential hypertension, benign JARAD (generalized anxiety disorder) ([facility]) Generalized anxiety disorder Lumbar spondylosis Lumbosacral spondylosis without myelopathy Bilateral leg edema Edema Prostate cancer (CMS/HCC) Malignant neoplasm of prostate Type 2 diabetes mellitus with hyperglycemia, with long-term current use of insulin (CMS/HCC) Class 2 severe obesity due to excess calories with serious comorbidity and body mass index (BMI) of35.0 to 35.9 in adult ([facility])- Primary Type 2 diabetes mellitus with hyperglycemia, with long-term current use of insulin (CMS/HCC) Type 2 diabetes mellitus with diabetic polyneuropathy, with long-term current use of insulin (CMS/HCC) Long-term insulin use (CMS/HCC) Type 2 diabetes mellitus with stage 3a chronic kidney disease, with long-term current use of insulin (HCC) ([facility]) Class 2 severe obesity due to excess calories with serious comorbidity and body mass index (BMI) of35.0 to 35.9 in adult ([facility])- Primary Type 2 diabetes mellitus with diabetic polyneuropathy, with long-term current use of insulin ([facility]) Type 2 diabetes mellitus with stage 3a chronic kidney disease, with long-term current use of insulin (HCC) ([facility]) Long-term insulin use ([facility]) documented in this encounter [facility] HealthcareEvaluation note* Diagnosis Type 2 diabetes mellitus with diabetic polyneuropathy, with long-term current use of insulin (CMS/HCC)- Primary Class 2 severe obesity due to excess calories with serious comorbidity and body mass index (BMI) of35.0 to 35.9 in adult ([facility])- Primary Type 2 diabetes mellitus with diabetic polyneuropathy, with long-term current use of insulin ([facility]) Long-term insulin use ([facility]) Lumbar spondylosis- Primary Lumbosacral spondylosis without myelopathy Benign essential hypertension ([facility]) Essential hypertension, benign Bilateral leg edema Edema Class 2 severe obesity due to excess calories with serious comorbidity and body mass index (BMI) of36.0 to 36.9 in adult ([facility])- Primary Type 2 diabetes mellitus with diabetic polyneuropathy, with long-term current use of insulin (CMS/HCC) Benign essential hypertension (CMS/HCC)- Primary Essential hypertension, benign Lumbar spondylosis Lumbosacral spondylosis without myelopathy Bilateral leg edema Edema Type 2 diabetes mellitus with diabetic polyneuropathy, with long-term current use of insulin ([facility]) Hypercholesteremia ([facility]) Pure hypercholesterolemia Encounter for long-term (current) use of medications Encounter for long-term (current) use of other medications Obesity (BMI 30-39.9) Body mass index [BMI] 36.0-36.9, adult (Z68.36) JARAD (generalized anxiety disorder) ([facility])- Primary Generalized anxiety disorder Benign essential hypertension ([facility]) Essential hypertension, benign Class 2 severe obesity due to excess calories with serious comorbidity and body mass index (BMI) of35.0 to 35.9 in adult ([facility])- Primary Type 2 diabetes mellitus with diabetic polyneuropathy, with long-term current use of insulin ([facility]) Long-term insulin use ([facility]) Benign essential hypertension ([facility])- Primary Essential hypertension, benign JARAD (generalized anxiety disorder) ([facility]) Generalized anxiety disorder Bilateral leg edema Edema Lumbar spondylosis Lumbosacral spondylosis without myelopathy Benign essential hypertension ([facility])- Primary Essential hypertension, benign JARAD (generalized anxiety disorder) ([facility]) Generalized anxiety disorder Lumbar spondylosis Lumbosacral spondylosis without myelopathy Bilateral leg edema Edema Prostate cancer ([facility]) Malignant neoplasm of prostate Type 2 diabetes mellitus with hyperglycemia, with long-term current use of insulin ([facility]) Class 2 severe obesity due to excess calories with serious comorbidity and body mass index (BMI) of35.0 to 35.9 in adult ([facility])- Primary Type 2 diabetes mellitus with hyperglycemia, with long-term current use of insulin ([facility]) Type 2 diabetes mellitus with diabetic polyneuropathy, with long-term current use of insulin ([facility]) Long-term insulin use ([facility]) Type 2 diabetes mellitus with stage 3a chronic kidney disease, with long-term current use of insulin ([facility]) ([facility]) Class 2 severe obesity due to excess calories with serious comorbidity and body mass index (BMI) of35.0 to 35.9 in adult ([facility])- Primary Type 2 diabetes mellitus with diabetic polyneuropathy, with long-term current use of insulin ([facility]) Type 2 diabetes mellitus with stage 3a chronic kidney disease, with long-term current use of insulin ([facility]) ([facility]) Long-term insulin use ([facility]) S/P arthroscopy of left shoulder- Primary documented in this encounter [facility]* Diagnosis Type 2 diabetes mellitus with diabetic polyneuropathy, with long-term current use of insulin ([facility])- Primary Class 2 severe obesity due to excess calories with serious comorbidity and body mass index (BMI) of35.0 to 35.9 in adult ([facility])- Primary Type 2 diabetes mellitus with diabetic polyneuropathy, with long-term current use of insulin ([facility]) Long-term insulin use ([facility]) Lumbar spondylosis- Primary Lumbosacral spondylosis without myelopathy Benign essential hypertension ([facility]) Essential hypertension, benign Bilateral leg edema Edema Class 2 severe obesity due to excess calories with serious comorbidity and body mass index (BMI) of36.0 to 36.9 in adult ([facility])- Primary Type 2 diabetes mellitus with diabetic polyneuropathy, with long-term current use of insulin ([facility]) Benign essential hypertension ([facility])- Primary Essential hypertension, benign Lumbar spondylosis Lumbosacral spondylosis without myelopathy Bilateral leg edema Edema Type 2 diabetes mellitus with diabetic polyneuropathy, with long-term current use of insulin ([facility]) Hypercholesteremia ([facility]) Pure hypercholesterolemia Encounter for long-term (current) use of medications Encounter for long-term (current) use of other medications Obesity (BMI 30-39.9) Body mass index [BMI] 36.0-36.9, adult (Z68.36) JARAD (generalized anxiety disorder) ([facility])- Primary Generalized anxiety disorder Benign essential hypertension ([facility]) Essential hypertension, benign Class 2 severe obesity due to excess calories with serious comorbidity and body mass index (BMI) of35.0 to 35.9 in adult ([facility])- Primary Type 2 diabetes mellitus with diabetic polyneuropathy, with long-term current use of insulin ([facility]) Long-term insulin use ([facility]) Benign essential hypertension ([facility])- Primary Essential hypertension, benign JARAD (generalized anxiety disorder) ([facility]) Generalized anxiety disorder Bilateral leg edema Edema Lumbar spondylosis Lumbosacral spondylosis without myelopathy Benign essential hypertension ([facility])- Primary Essential hypertension, benign JARAD (generalized anxiety disorder) ([facility]) Generalized anxiety disorder Lumbar spondylosis Lumbosacral spondylosis without myelopathy Bilateral leg edema Edema Prostate cancer ([facility]) Malignant neoplasm of prostate Type 2 diabetes mellitus with hyperglycemia, with long-term current use of insulin ([facility]) Class 2 severe obesity due to excess calories with serious comorbidity and body mass index (BMI) of35.0 to 35.9 in adult ([facility])- Primary Type 2 diabetes mellitus with hyperglycemia, with long-term current use of insulin ([facility]) Type 2 diabetes mellitus with diabetic polyneuropathy, with long-term current use of insulin ([facility]) Long-term insulin use ([facility]) Type 2 diabetes mellitus with stage 3a chronic kidney disease, with long-term current use of insulin (HCC) ([facility]) Class 2 severe obesity due to excess calories with serious comorbidity and body mass index (BMI) of35.0 to 35.9 in adult ([facility])- Primary Type 2 diabetes mellitus with diabetic polyneuropathy, with long-term current use of insulin ([facility]) Type 2 diabetes mellitus with stage 3a chronic kidney disease, with long-term current use of insulin ([facility]) ([facility]) Long-term insulin use ([facility]) S/P arthroscopy of left shoulder- Primary documented in this encounter [facility]* Diagnosis Type 2 diabetes mellitus with diabetic polyneuropathy, with long-term current use of insulin ([facility])- Primary Class 2 severe obesity due to excess calories with serious comorbidity and body mass index (BMI) of35.0 to 35.9 in adult ([facility])- Primary Type 2 diabetes mellitus with diabetic polyneuropathy, with long-term current use of insulin ([facility]) Long-term insulin use ([facility]) Lumbar spondylosis- Primary Lumbosacral spondylosis without myelopathy Benign essential hypertension ([facility]) Essential hypertension, benign Bilateral leg edema Edema Class 2 severe obesity due to excess calories with serious comorbidity and body mass index (BMI) of36.0 to 36.9 in adult ([facility])- Primary Type 2 diabetes mellitus with diabetic polyneuropathy, with long-term current use of insulin ([facility]) Benign essential hypertension ([facility])- Primary Essential hypertension, benign Lumbar spondylosis Lumbosacral spondylosis without myelopathy Bilateral leg edema Edema Type 2 diabetes mellitus with diabetic polyneuropathy, with long-term current use of insulin ([facility]) Hypercholesteremia ([facility]) Pure hypercholesterolemia Encounter for long-term (current) use of medications Encounter for long-term (current) use of other medications Obesity (BMI 30-39.9) Body mass index [BMI] 36.0-36.9, adult (Z68.36) JARAD (generalized anxiety disorder) ([facility])- Primary Generalized anxiety disorder Benign essential hypertension ([facility]) Essential hypertension, benign Class 2 severe obesity due to excess calories with serious comorbidity and body mass index (BMI) of35.0 to 35.9 in adult ([facility])- Primary Type 2 diabetes mellitus with diabetic polyneuropathy, with long-term current use of insulin ([facility]) Long-term insulin use ([facility]) Benign essential hypertension ([facility])- Primary Essential hypertension, benign JARAD (generalized anxiety disorder) ([facility]) Generalized anxiety disorder Bilateral leg edema Edema Lumbar spondylosis Lumbosacral spondylosis without myelopathy Benign essential hypertension ([facility])- Primary Essential hypertension, benign JARAD (generalized anxiety disorder) ([facility]) Generalized anxiety disorder Lumbar spondylosis Lumbosacral spondylosis without myelopathy Bilateral leg edema Edema Prostate cancer ([facility]) Malignant neoplasm of prostate Type 2 diabetes mellitus with hyperglycemia, with long-term current use of insulin ([facility]) Class 2 severe obesity due to excess calories with serious comorbidity and body mass index (BMI) of35.0 to 35.9 in adult ([facility])- Primary Type 2 diabetes mellitus with hyperglycemia, with long-term current use of insulin ([facility]) Type 2 diabetes mellitus with diabetic polyneuropathy, with long-term current use of insulin ([facility]) Long-term insulin use ([facility]) Type 2 diabetes mellitus with stage 3a chronic kidney disease, with long-term current use of insulin ([facility]) ([facility]) Class 2 severe obesity due to excess calories with serious comorbidity and body mass index (BMI) of35.0 to 35.9 in adult ([facility] [place])- Primary Type 2 diabetes mellitus with diabetic polyneuropathy, with long-term current use of insulin ([facility]) Type 2 diabetes mellitus with stage 3a chronic kidney disease, with long-term current use of insulin ([facility]) ([facility] [place]) Long-term insulin use ([facility]) S/P arthroscopy of left shoulder- Primary documented in this encounter [facility]* Diagnosis Type 2 diabetes mellitus with diabetic polyneuropathy, with long-term current use of insulin ([facility])- Primary Class 2 severe obesity due to excess calories with serious comorbidity and body mass index (BMI) of35.0 to 35.9 in adult ([facility] [place])- Primary Type 2 diabetes mellitus with diabetic polyneuropathy, with long-term current use of insulin ([facility]) Long-term insulin use ([facility]) Lumbar spondylosis- Primary Lumbosacral spondylosis without myelopathy Benign essential hypertension ([facility]) Essential hypertension, benign Bilateral leg edema Edema Class 2 severe obesity due to excess calories with serious comorbidity and body mass index (BMI) of36.0 to 36.9 in adult ([facility] [place])- Primary Type 2 diabetes mellitus with diabetic polyneuropathy, with long-term current use of insulin ([facility]) Benign essential hypertension ([facility])- Primary Essential hypertension, benign Lumbar spondylosis Lumbosacral spondylosis without myelopathy Bilateral leg edema Edema Type 2 diabetes mellitus with diabetic polyneuropathy, with long-term current use of insulin ([facility]) Hypercholesteremia ([facility] [place]) Pure hypercholesterolemia Encounter for long-term (current) use of medications Encounter for long-term (current) use of other medications Obesity (BMI 30-39.9) Body mass index [BMI] 36.0-36.9, adult (Z68.36) JARAD (generalized anxiety disorder) ([facility])- Primary Generalized anxiety disorder Benign essential hypertension ([facility]) Essential hypertension, benign Class 2 severe obesity due to excess calories with serious comorbidity and body mass index (BMI) of35.0 to 35.9 in adult ([facility] [place])- Primary Type 2 diabetes mellitus with diabetic polyneuropathy, with long-term current use of insulin ([facility]) Long-term insulin use ([facility]) Benign essential hypertension ([facility])- Primary Essential hypertension, benign JARAD (generalized anxiety disorder) ([facility]) Generalized anxiety disorder Bilateral leg edema Edema Lumbar spondylosis Lumbosacral spondylosis without myelopathy Benign essential hypertension ([facility])- Primary Essential hypertension, benign JARAD (generalized anxiety disorder) ([facility]) Generalized anxiety disorder Lumbar spondylosis Lumbosacral spondylosis without myelopathy Bilateral leg edema Edema Prostate cancer ([facility]) Malignant neoplasm of prostate Type 2 diabetes mellitus with hyperglycemia, with long-term current use of insulin ([facility]) Class 2 severe obesity due to excess calories with serious comorbidity and body mass index (BMI) of35.0 to 35.9 in adult ([facility])- Primary Type 2 diabetes mellitus with hyperglycemia, with long-term current use of insulin ([facility]) Type 2 diabetes mellitus with diabetic polyneuropathy, with long-term current use of insulin ([facility]) Long-term insulin use ([facility]) Type 2 diabetes mellitus with stage 3a chronic kidney disease, with long-term current use of insulin ([facility]) ([facility]) Class 2 severe obesity due to excess calories with serious comorbidity and body mass index (BMI) of35.0 to 35.9 in adult ([facility] [place])- Primary Type 2 diabetes mellitus with diabetic polyneuropathy, with long-term current use of insulin ([facility]) Type 2 diabetes mellitus with stage 3a chronic kidney disease, with long-term current use of insulin ([facility]) ([facility] [place]) Long-term insulin use ([facility]) S/P arthroscopy of left shoulder- Primary Left shoulder pain, unspecified chronicity documented in this encounter [facility]* Diagnosis Internal derangement of left shoulder- Primary Acute pain of left shoulder documented in this encounter [facility]* Diagnosis Type 2 diabetes mellitus with diabetic polyneuropathy, with long-term current use of insulin ([facility])- Primary Class 2 severe obesity due to excess calories with serious comorbidity and body mass index (BMI) of35.0 to 35.9 in adult ([facility] [place])- Primary Type 2 diabetes mellitus with diabetic polyneuropathy, with long-term current use of insulin ([facility]) Long-term insulin use ([facility]) Lumbar spondylosis- Primary Lumbosacral spondylosis without myelopathy Benign essential hypertension ([facility]) Essential hypertension, benign Bilateral leg edema Edema Class 2 severe obesity due to excess calories with serious comorbidity and body mass index (BMI) of36.0 to 36.9 in adult ([facility] [place])- Primary Type 2 diabetes mellitus with diabetic polyneuropathy, with long-term current use of insulin ([facility]) Benign essential hypertension ([facility])- Primary Essential hypertension, benign Lumbar spondylosis Lumbosacral spondylosis without myelopathy Bilateral leg edema Edema Type 2 diabetes mellitus with diabetic polyneuropathy, with long-term current use of insulin ([facility]) Hypercholesteremia ([facility]) Pure hypercholesterolemia Encounter for long-term (current) use of medications Encounter for long-term (current) use of other medications Obesity (BMI 30-39.9) Body mass index [BMI] 36.0-36.9, adult (Z68.36) JARAD (generalized anxiety disorder) ([facility])- Primary Generalized anxiety disorder Benign essential hypertension ([facility]) Essential hypertension, benign Class 2 severe obesity due to excess calories with serious comorbidity and body mass index (BMI) of35.0 to 35.9 in adult ([facility])- Primary Type 2 diabetes mellitus with diabetic polyneuropathy, with long-term current use of insulin ([facility]) Long-term insulin use ([facility]) Benign essential hypertension ([facility])- Primary Essential hypertension, benign JARAD (generalized anxiety disorder) ([facility]) Generalized anxiety disorder Bilateral leg edema Edema Lumbar spondylosis Lumbosacral spondylosis without myelopathy Benign essential hypertension ([facility])- Primary Essential hypertension, benign JARAD (generalized anxiety disorder) ([facility]) Generalized anxiety disorder Lumbar spondylosis Lumbosacral spondylosis without myelopathy Bilateral leg edema Edema Prostate cancer ([facility]) Malignant neoplasm of prostate Type 2 diabetes mellitus with hyperglycemia, with long-term current use of insulin ([facility]) Class 2 severe obesity due to excess calories with serious comorbidity and body mass index (BMI) of35.0 to 35.9 in adult ([facility])- Primary Type 2 diabetes mellitus with hyperglycemia, with long-term current use of insulin ([facility]) Type 2 diabetes mellitus with diabetic polyneuropathy, with long-term current use of insulin ([facility]) Long-term insulin use ([facility]) Type 2 diabetes mellitus with stage 3a chronic kidney disease, with long-term current use of insulin ([facility]) ([facility]) Class 2 severe obesity due to excess calories with serious comorbidity and body mass index (BMI) of35.0 to 35.9 in adult ([facility])- Primary Type 2 diabetes mellitus with diabetic polyneuropathy, with long-term current use of insulin ([facility]) Type 2 diabetes mellitus with stage 3a chronic kidney disease, with long-term current use of insulin ([facility]) ([facility]) Long-term insulin use (CMS/HCC) Benign essential hypertension (CMS/HCC)- Primary Essential hypertension, benign JARAD (generalized anxiety disorder) (CMS/HCC) Generalized anxiety disorder Lumbar spondylosis Lumbosacral spondylosis without myelopathy Type 2 diabetes mellitus with diabetic polyneuropathy, with long-term current use of insulin (CMS/HCC) Type 2 diabetes mellitus with stage 3b chronic kidney disease, with long-term current use of insulin (HCC) ([facility]) documented in this encounter [facility] HealthcareEvaluation note* Diagnosis Type 2 diabetes mellitus with diabetic polyneuropathy, with long-term current use of insulin (CMS/HCC)- Primary Class 2 severe obesity due to excess calories with serious comorbidity and body mass index (BMI) of35.0 to 35.9 in adult ([facility])- Primary Type 2 diabetes mellitus with diabetic polyneuropathy, with long-term current use of insulin ([facility]) Long-term insulin use ([facility]) Lumbar spondylosis- Primary Lumbosacral spondylosis without myelopathy Benign essential hypertension ([facility]) Essential hypertension, benign Bilateral leg edema Edema Class 2 severe obesity due to excess calories with serious comorbidity and body mass index (BMI) of36.0 to 36.9 in adult ([facility])- Primary Type 2 diabetes mellitus with diabetic polyneuropathy, with long-term current use of insulin ([facility]) Benign essential hypertension ([facility])- Primary Essential hypertension, benign Lumbar spondylosis Lumbosacral spondylosis without myelopathy Bilateral leg edema Edema Type 2 diabetes mellitus with diabetic polyneuropathy, with long-term current use of insulin ([facility]) Hypercholesteremia ([facility]) Pure hypercholesterolemia Encounter for long-term (current) use of medications Encounter for long-term (current) use of other medications Obesity (BMI 30-39.9) Body mass index [BMI] 36.0-36.9, adult (Z68.36) JARAD (generalized anxiety disorder) ([facility])- Primary Generalized anxiety disorder Benign essential hypertension ([facility]) Essential hypertension, benign Class 2 severe obesity due to excess calories with serious comorbidity and body mass index (BMI) of35.0 to 35.9 in adult ([facility])- Primary Type 2 diabetes mellitus with diabetic polyneuropathy, with long-term current use of insulin ([facility]) Long-term insulin use (CMS/HCC) Benign essential hypertension (CMS/HCC)- Primary Essential hypertension, benign JARAD (generalized anxiety disorder) (CMS/HCC) Generalized anxiety disorder Bilateral leg edema Edema Lumbar spondylosis Lumbosacral spondylosis without myelopathy Benign essential hypertension (CMS/HCC)- Primary Essential hypertension, benign JARAD (generalized anxiety disorder) (CMS/HCC) Generalized anxiety disorder Lumbar spondylosis Lumbosacral spondylosis without myelopathy Bilateral leg edema Edema Prostate cancer ([facility]/HCC) Malignant neoplasm of prostate Type 2 diabetes mellitus with hyperglycemia, with long-term current use of insulin ([facility]) Class 2 severe obesity due to excess calories with serious comorbidity and body mass index (BMI) of35.0 to 35.9 in adult ([facility])- Primary Type 2 diabetes mellitus with hyperglycemia, with long-term current use of insulin ([facility]) Type 2 diabetes mellitus with diabetic polyneuropathy, with long-term current use of insulin ([facility]) Long-term insulin use ([facility]) Type 2 diabetes mellitus with stage 3a chronic kidney disease, with long-term current use of insulin (HCC) ([facility]) Class 2 severe obesity due to excess calories with serious comorbidity and body mass index (BMI) of35.0 to 35.9 in adult ([facility])- Primary Type 2 diabetes mellitus with diabetic polyneuropathy, with long-term current use of insulin ([facility]/HCC) Type 2 diabetes mellitus with stage 3a chronic kidney disease, with long-term current use of insulin (HCC) ([facility]) Long-term insulin use ([facility]) Benign essential hypertension (CMS/HCC)- Primary Essential hypertension, benign JARAD (generalized anxiety disorder) ([facility]) Generalized anxiety disorder Lumbar spondylosis Lumbosacral spondylosis without myelopathy Type 2 diabetes mellitus with diabetic polyneuropathy, with long-term current use of insulin ([facility]/HCC) Type 2 diabetes mellitus with stage 3b chronic kidney disease, with long-term current use of insulin (HCC) ([facility]) Left shoulder pain, unspecified chronicity- Primary S/P arthroscopy of left shoulder documented in this encounter [facility] HealthcareEvaluation note* Diagnosis Type 2 diabetes mellitus with diabetic polyneuropathy, with long-term current use of insulin ([facility])- Primary Class 2 severe obesity due to excess calories with serious comorbidity and body mass index (BMI) of35.0 to 35.9 in adult ([facility] [place])- Primary Type 2 diabetes mellitus with diabetic polyneuropathy, with long-term current use of insulin ([facility] [place]) Long-term insulin use ([facility] [place]) Lumbar spondylosis- Primary Lumbosacral spondylosis without myelopathy Benign essential hypertension ([facility]) Essential hypertension, benign Bilateral leg edema Edema Class 2 severe obesity due to excess calories with serious comorbidity and body mass index (BMI) of36.0 to 36.9 in adult ([facility] [place])- Primary Type 2 diabetes mellitus with diabetic polyneuropathy, with long-term current use of insulin ([facility]) Benign essential hypertension ([facility] [place])- Primary Essential hypertension, benign Lumbar spondylosis Lumbosacral spondylosis without myelopathy Bilateral leg edema Edema Type 2 diabetes mellitus with diabetic polyneuropathy, with long-term current use of insulin ([facility] [place]) Hypercholesteremia ([facility] [place]) Pure hypercholesterolemia Encounter for long-term (current) use of medications Encounter for long-term (current) use of other medications Obesity (BMI 30-39.9) Body mass index [BMI] 36.0-36.9, adult (Z68.36) JARAD (generalized anxiety disorder) ([facility] [place])- Primary Generalized anxiety disorder Benign essential hypertension ([facility]) Essential hypertension, benign Class 2 severe obesity due to excess calories with serious comorbidity and body mass index (BMI) of35.0 to 35.9 in adult ([facility] [place])- Primary Type 2 diabetes mellitus with diabetic polyneuropathy, with long-term current use of insulin ([facility] [place]) Long-term insulin use ([facility] [place]) Benign essential hypertension ([facility])- Primary Essential hypertension, benign JARAD (generalized anxiety disorder) ([facility] [place]) Generalized anxiety disorder Bilateral leg edema Edema Lumbar spondylosis Lumbosacral spondylosis without myelopathy Benign essential hypertension ([facility])- Primary Essential hypertension, benign JARAD (generalized anxiety disorder) ([facility]) Generalized anxiety disorder Lumbar spondylosis Lumbosacral spondylosis without myelopathy Bilateral leg edema Edema Prostate cancer ([facility]) Malignant neoplasm of prostate Type 2 diabetes mellitus with hyperglycemia, with long-term current use of insulin ([facility] [place]) Class 2 severe obesity due to excess calories with serious comorbidity and body mass index (BMI) of35.0 to 35.9 in adult ([facility] [place])- Primary Type 2 diabetes mellitus with hyperglycemia, with long-term current use of insulin ([facility]) Type 2 diabetes mellitus with diabetic polyneuropathy, with long-term current use of insulin ([facility]) Long-term insulin use ([facility]) Type 2 diabetes mellitus with stage 3a chronic kidney disease, with long-term current use of insulin (HCC) ([facility]) Class 2 severe obesity due to excess calories with serious comorbidity and body mass index (BMI) of35.0 to 35.9 in adult ([facility])- Primary Type 2 diabetes mellitus with diabetic polyneuropathy, with long-term current use of insulin ([facility]) Type 2 diabetes mellitus with stage 3a chronic kidney disease, with long-term current use of insulin ([facility]) ([facility]) Long-term insulin use ([facility]) Benign essential hypertension ([facility])- Primary Essential hypertension, benign JARAD (generalized anxiety disorder) ([facility]) Generalized anxiety disorder Lumbar spondylosis Lumbosacral spondylosis without myelopathy Type 2 diabetes mellitus with diabetic polyneuropathy, with long-term current use of insulin ([facility]) Type 2 diabetes mellitus with stage 3b chronic kidney disease, with long-term current use of insulin ([facility]) ([facility]) Contusion of left foot, initial encounter- Primary Pain in left foot Pain in soft tissues of limb Diabetic polyneuropathy associated with type 2 diabetes mellitus ([facility]) Encounter for long-term (current) use of insulin ([facility]) Encounter for long-term (current) use of insulin documented in this encounter [facility] HealthcareEvaluation note* Diagnosis Type 2 diabetes mellitus with diabetic polyneuropathy, with long-term current use of insulin ([facility])- Primary Class 2 severe obesity due to excess calories with serious comorbidity and body mass index (BMI) of35.0 to 35.9 in adult ([facility])- Primary Type 2 diabetes mellitus with diabetic polyneuropathy, with long-term current use of insulin ([facility]) Long-term insulin use ([facility]) Lumbar spondylosis- Primary Lumbosacral spondylosis without myelopathy Benign essential hypertension ([facility]) Essential hypertension, benign Bilateral leg edema Edema Class 2 severe obesity due to excess calories with serious comorbidity and body mass index (BMI) of36.0 to 36.9 in adult ([facility])- Primary Type 2 diabetes mellitus with diabetic polyneuropathy, with long-term current use of insulin ([facility]) Benign essential hypertension ([facility]/HCC)- Primary Essential hypertension, benign Lumbar spondylosis Lumbosacral spondylosis without myelopathy Bilateral leg edema Edema Type 2 diabetes mellitus with diabetic polyneuropathy, with long-term current use of insulin ([facility]) Hypercholesteremia ([facility]) Pure hypercholesterolemia Encounter for long-term (current) use of medications Encounter for long-term (current) use of other medications Obesity (BMI 30-39.9) Body mass index [BMI] 36.0-36.9, adult (Z68.36) JARAD (generalized anxiety disorder) ([facility])- Primary Generalized anxiety disorder Benign essential hypertension ([facility]) Essential hypertension, benign Class 2 severe obesity due to excess calories with serious comorbidity and body mass index (BMI) of35.0 to 35.9 in adult ([facility])- Primary Type 2 diabetes mellitus with diabetic polyneuropathy, with long-term current use of insulin ([facility]) Long-term insulin use ([facility]) Benign essential hypertension ([facility])- Primary Essential hypertension, benign JARAD (generalized anxiety disorder) ([facility]) Generalized anxiety disorder Bilateral leg edema Edema Lumbar spondylosis Lumbosacral spondylosis without myelopathy Benign essential hypertension ([facility]/HCC)- Primary Essential hypertension, benign JARAD (generalized anxiety disorder) ([facility]) Generalized anxiety disorder Lumbar spondylosis Lumbosacral spondylosis without myelopathy Bilateral leg edema Edema Prostate cancer ([facility]) Malignant neoplasm of prostate Type 2 diabetes mellitus with hyperglycemia, with long-term current use of insulin ([facility]) Class 2 severe obesity due to excess calories with serious comorbidity and body mass index (BMI) of35.0 to 35.9 in adult ([facility])- Primary Type 2 diabetes mellitus with hyperglycemia, with long-term current use of insulin ([facility]) Type 2 diabetes mellitus with diabetic polyneuropathy, with long-term current use of insulin ([facility]) Long-term insulin use ([facility]) Type 2 diabetes mellitus with stage 3a chronic kidney disease, with long-term current use of insulin ([facility]) ([facility]) Class 2 severe obesity due to excess calories with serious comorbidity and body mass index (BMI) of35.0 to 35.9 in adult ([facility])- Primary Type 2 diabetes mellitus with diabetic polyneuropathy, with long-term current use of insulin ([facility]) Type 2 diabetes mellitus with stage 3a chronic kidney disease, with long-term current use of insulin (HCC) ([facility]) Long-term insulin use ([facility]) Benign essential hypertension ([facility])- Primary Essential hypertension, benign JARAD (generalized anxiety disorder) ([facility]) Generalized anxiety disorder Lumbar spondylosis Lumbosacral spondylosis without myelopathy Type 2 diabetes mellitus with diabetic polyneuropathy, with long-term current use of insulin ([facility]) Type 2 diabetes mellitus with stage 3b chronic kidney disease, with long-term current use of insulin ([facility]) ([facility]) Left shoulder pain, unspecified chronicity- Primary S/P arthroscopy of left shoulder documented in this encounter [facility] HealthcareEvaluation note* Diagnosis Type 2 diabetes mellitus with diabetic polyneuropathy, with long-term current use of insulin ([facility]) Preop examination Unspecified pre-operative examination documented in this encounter [facility] HealthcareEvaluation note* Diagnosis Type 2 diabetes mellitus with diabetic polyneuropathy, with long-term current use of insulin ([facility])- Primary Class 2 severe obesity due to excess calories with serious comorbidity and body mass index (BMI) of35.0 to 35.9 in adult ([facility])- Primary Type 2 diabetes mellitus with diabetic polyneuropathy, with long-term current use of insulin ([facility]) Long-term insulin use ([facility]) Lumbar spondylosis- Primary Lumbosacral spondylosis without myelopathy Benign essential hypertension ([facility]) Essential hypertension, benign Bilateral leg edema Edema Class 2 severe obesity due to excess calories with serious comorbidity and body mass index (BMI) of36.0 to 36.9 in adult ([facility])- Primary Type 2 diabetes mellitus with diabetic polyneuropathy, with long-term current use of insulin ([facility]) Benign essential hypertension ([facility])- Primary Essential hypertension, benign Lumbar spondylosis Lumbosacral spondylosis without myelopathy Bilateral leg edema Edema Type 2 diabetes mellitus with diabetic polyneuropathy, with long-term current use of insulin ([facility]) Hypercholesteremia ([facility]) Pure hypercholesterolemia Encounter for long-term (current) [...] index (BMI) of35.0 to 35.9 in adult (CMS/HCC)- Primary Type [...] hyperglycemia, with long-term current use of insulin ([facility]) Class 2 severe obesity due to excess calories with serious comorbidity and body mass index (BMI) of35.0 to 35.9 in adult (CMS/HCC)- Primary Type 2 diabetes mellitus with hyperglycemia, with long-term current use of insulin (CMS/HCC) Type 2 diabetes mellitus with diabetic polyneuropathy, with long-term current use of insulin (CMS/HCC) Long-term insulin use (CMS/[facility]) Type 2 diabetes mellitus with stage 3a chronic kidney disease, with long-term current use of insulin (HCC) ([facility]) Class 2 severe obesity due to excess calories with serious comorbidity and body mass index (BMI) of35.0 to 35.9 in adult ([facility])- Primary Type 2 diabetes mellitus with [...] polyneuropathy, with long-term current use of insulin ([facility]) Type 2 diabetes mellitus with stage 3b chronic kidney disease, with long-term current use of insulin ([facility]) ([facility]) Left shoulder pain, unspecified chronicity- Primary S/P arthroscopy of left shoulder S/P arthroscopy of left shoulder- Primary documented in this encounter [facility] HealthcareEvaluation note* Diagnosis Type 2 diabetes mellitus with diabetic polyneuropathy, with long-term current use of insulin ([facility])- Primary Class 2 severe obesity due to excess calories with serious comorbidity and body mass index (BMI) of35.0 to 35.9 in adult ([facility])- Primary Type 2 diabetes mellitus with diabetic polyneuropathy, with long-term current use of insulin ([facility]) Long-term insulin use ([facility]) Lumbar spondylosis- Primary Lumbosacral spondylosis without myelopathy Benign essential hypertension ([facility]) Essential hypertension, benign Bilateral leg edema Edema Class 2 severe obesity due to excess calories with serious comorbidity and body mass index (BMI) of36.0 to 36.9 in adult ([facility])- Primary Type 2 diabetes mellitus with diabetic polyneuropathy, with long-term current use of insulin ([facility]) Benign essential hypertension ([facility])- Primary Essential hypertension, benign Lumbar spondylosis Lumbosacral spondylosis without myelopathy Bilateral leg edema Edema Type 2 diabetes mellitus with diabetic polyneuropathy, with long-term current use of insulin ([facility]) Hypercholesteremia ([facility]) Pure hypercholesterolemia Encounter for long-term (current) use of medications Encounter for long-term (current) use of other medications Obesity (BMI 30-39.9) Body mass index [BMI] 36.0-36.9, adult (Z68.36) JARAD (generalized anxiety disorder) ([facility])- Primary Generalized anxiety disorder Benign essential hypertension ([facility]) Essential hypertension, benign Class 2 severe obesity due to excess calories with serious comorbidity and body mass index (BMI) of35.0 to 35.9 in adult ([facility])- Primary Type 2 diabetes mellitus with diabetic polyneuropathy, with long-term current use of insulin ([facility]) Long-term insulin use ([facility]) Benign essential hypertension ([facility])- Primary Essential hypertension, benign JARAD (generalized anxiety disorder) ([facility]) Generalized anxiety disorder Bilateral leg edema Edema Lumbar spondylosis Lumbosacral spondylosis without myelopathy Benign essential hypertension ([facility])- Primary Essential hypertension, benign JARAD (generalized anxiety disorder) ([facility]) Generalized anxiety disorder Lumbar spondylosis Lumbosacral spondylosis without myelopathy Bilateral leg edema Edema Prostate cancer ([facility]) Malignant neoplasm of prostate Type 2 diabetes mellitus with hyperglycemia, with long-term current use of insulin ([facility]) Class 2 severe obesity due to excess calories with serious comorbidity and body mass index (BMI) of35.0 to 35.9 in adult ([facility])- Primary Type 2 diabetes mellitus with hyperglycemia, with long-term current use of insulin ([facility]) Type 2 diabetes mellitus with diabetic polyneuropathy, with long-term current use of insulin ([facility]) Long-term insulin use ([facility]) Type 2 diabetes mellitus with stage 3a chronic kidney disease, with long-term current use of insulin ([facility]) ([facility]) Class 2 severe obesity due to excess calories with serious comorbidity and body mass index (BMI) of35.0 to 35.9 in adult ([facility])- Primary Type 2 diabetes mellitus with diabetic polyneuropathy, with long-term current use of insulin ([facility]) Type 2 diabetes mellitus with stage 3a chronic kidney disease, with long-term current use of insulin ([facility]) ([facility]) Long-term insulin use ([facility]) Benign essential hypertension ([facility])- Primary Essential hypertension, benign JARAD (generalized anxiety disorder) ([facility]) Generalized anxiety disorder Lumbar spondylosis Lumbosacral spondylosis without myelopathy Type 2 diabetes mellitus with diabetic polyneuropathy, with long-term current use of insulin ([facility]) Type 2 diabetes mellitus with stage 3b chronic kidney disease, with long-term current use of insulin ([facility]) ([facility]) S/P arthroscopy of left shoulder- Primary documented in this encounter [facility] HealthcareEvaluation note* Diagnosis Type 2 diabetes mellitus with diabetic polyneuropathy, with long-term current use of insulin ([facility])- Primary Class 2 severe obesity due to excess calories with serious comorbidity and body mass index (BMI) of35.0 to 35.9 in adult ([facility])- Primary Type 2 diabetes mellitus with diabetic polyneuropathy, with long-term current use of insulin ([facility]) Long-term insulin use ([facility]) Lumbar spondylosis- Primary Lumbosacral spondylosis without myelopathy Benign essential hypertension ([facility]) Essential hypertension, benign Bilateral leg edema Edema Class 2 severe obesity due to excess calories with serious comorbidity and body mass index (BMI) of36.0 to 36.9 in adult ([facility] [place])- Primary Type 2 diabetes mellitus with diabetic polyneuropathy, with long-term current use of insulin ([facility]) Benign essential hypertension ([facility])- Primary Essential hypertension, benign Lumbar spondylosis Lumbosacral spondylosis without myelopathy Bilateral leg edema Edema Type 2 diabetes mellitus with diabetic polyneuropathy, with long-term current use of insulin ([facility]) Hypercholesteremia ([facility]) Pure hypercholesterolemia Encounter for long-term (current) use of medications Encounter for long-term (current) use of other medications Obesity (BMI 30-39.9) Body mass index [BMI] 36.0-36.9, adult (Z68.36) JARAD (generalized anxiety disorder) ([facility])- Primary Generalized anxiety disorder Benign essential hypertension ([facility]) Essential hypertension, benign Class 2 severe obesity due to excess calories with serious comorbidity and body mass index (BMI) of35.0 to 35.9 in adult ([facility] [place])- Primary Type 2 diabetes mellitus with diabetic polyneuropathy, with long-term current use of insulin ([facility]) [facility] Benign essential hypertension ([facility])- Primary Essential hypertension, benign JARAD (generalized anxiety disorder) ([facility]) Generalized anxiety disorder Bilateral leg edema Edema Lumbar spondylosis Lumbosacral spondylosis without myelopathy Benign essential hypertension ([facility])- Primary Essential hypertension, benign JARAD (generalized anxiety disorder) ([facility]) Generalized anxiety disorder Lumbar spondylosis Lumbosacral spondylosis without myelopathy Bilateral leg edema Edema Prostate cancer ([facility]) Malignant neoplasm of prostate Type 2 diabetes mellitus with hyperglycemia, with long-term current use of insulin ([facility]) Class 2 severe obesity due to excess calories with serious comorbidity and body mass index (BMI) of35.0 to 35.9 in adult ([facility] [place])- Primary Type 2 diabetes mellitus with hyperglycemia, with long-term current use of insulin ([facility]) Type 2 diabetes mellitus with diabetic polyneuropathy, with long-term current use of insulin ([facility]) Long-term insulin use ([facility]) Type 2 diabetes mellitus with stage 3a chronic kidney disease, with long-term current use of insulin (HCC) ([facility]) Class 2 severe obesity due to excess calories with serious comorbidity and body mass index (BMI) of35.0 to 35.9 in adult ([facility])- Primary Type 2 diabetes mellitus with diabetic polyneuropathy, with long-term current use of insulin ([facility]) Type 2 diabetes mellitus with stage 3a chronic kidney disease, with long-term current use of insulin (HCC) ([facility]) Long-term insulin use ([facility]) Benign essential hypertension ([facility])- Primary Essential hypertension, benign JARAD (generalized anxiety disorder) ([facility]) Generalized anxiety disorder Lumbar spondylosis Lumbosacral spondylosis without myelopathy Type 2 diabetes mellitus with diabetic polyneuropathy, with long-term current use of insulin ([facility]) Type 2 diabetes mellitus with stage 3b chronic kidney disease, with long-term current use of insulin ([facility]) ([facility]) Left shoulder pain, unspecified chronicity- Primary S/P arthroscopy of left shoulder documented in this encounter [facility] HealthcareEvaluation note* Diagnosis Type 2 diabetes mellitus with diabetic polyneuropathy, with long-term current use of insulin ([facility])- Primary Class 2 severe obesity due to excess calories with serious comorbidity and body mass index (BMI) of35.0 to 35.9 in adult ([facility])- Primary Type 2 diabetes mellitus with diabetic polyneuropathy, with long-term current use of insulin ([facility]) Long-term insulin use ([facility]) Lumbar spondylosis- Primary Lumbosacral spondylosis without myelopathy Benign essential hypertension ([facility]) Essential hypertension, benign Bilateral leg edema Edema Class 2 severe obesity due to excess calories with serious comorbidity and body mass index (BMI) of36.0 to 36.9 in adult ([facility])- Primary Type 2 diabetes mellitus with diabetic polyneuropathy, with long-term current use of insulin ([facility]) Benign essential hypertension ([facility])- Primary Essential hypertension, benign Lumbar spondylosis Lumbosacral spondylosis without myelopathy Bilateral leg edema Edema Type 2 diabetes mellitus with diabetic polyneuropathy, with long-term current use of insulin ([facility]) Hypercholesteremia ([facility]) Pure hypercholesterolemia Encounter for long-term (current) use of medications Encounter for long-term (current) use of other medications Obesity (BMI 30-39.9) Body mass index [BMI] 36.0-36.9, adult (Z68.36) JARAD (generalized anxiety disorder) ([facility])- Primary Generalized anxiety disorder Benign essential hypertension ([facility]) Essential hypertension, benign Class 2 severe obesity due to excess calories with serious comorbidity and body mass index (BMI) of35.0 to 35.9 in adult ([facility])- Primary Type 2 diabetes mellitus with diabetic polyneuropathy, with long-term current use of insulin ([facility]) Long-term insulin use ([facility]) Benign essential hypertension ([facility])- Primary Essential hypertension, benign JARAD (generalized anxiety disorder) ([facility]) Generalized anxiety disorder Bilateral leg edema Edema Lumbar spondylosis Lumbosacral spondylosis without myelopathy Benign essential hypertension ([facility])- Primary Essential hypertension, benign JARAD (generalized anxiety disorder) ([facility]) Generalized anxiety disorder Lumbar spondylosis Lumbosacral spondylosis without myelopathy Bilateral leg edema Edema Prostate cancer ([facility]) Malignant neoplasm of prostate Type 2 diabetes mellitus with hyperglycemia, with long-term current use of insulin ([facility]) Class 2 severe obesity due to excess calories with serious comorbidity and body mass index (BMI) of35.0 to 35.9 in adult ([facility])- Primary Type 2 diabetes mellitus with hyperglycemia, with long-term current use of insulin ([facility]) Type 2 diabetes mellitus with diabetic polyneuropathy, with long-term current use of insulin ([facility]) Long-term insulin use ([facility]) Type 2 diabetes mellitus with stage 3a chronic kidney disease, with long-term current use of insulin ([facility]) ([facility]) Class 2 severe obesity due to excess calories with serious comorbidity and body mass index (BMI) of35.0 to 35.9 in adult ([facility])- Primary Type 2 diabetes mellitus with diabetic polyneuropathy, with long-term current use of insulin ([facility]) Type 2 diabetes mellitus with stage 3a chronic kidney disease, with long-term current use of insulin (HCC) ([facility]) Long-term insulin use ([facility]) Benign essential hypertension ([facility])- Primary Essential hypertension, benign JARAD (generalized anxiety disorder) ([facility]) Generalized anxiety disorder Lumbar spondylosis Lumbosacral spondylosis without myelopathy Type 2 diabetes mellitus with diabetic polyneuropathy, with long-term current use of insulin ([facility]) Type 2 diabetes mellitus with stage 3b chronic kidney disease, with long-term current use of insulin ([facility]) ([facility]) Left shoulder pain, unspecified chronicity- Primary S/P arthroscopy of left shoulder documented in this encounter [facility] HealthcareEvaluation note* Diagnosis Type 2 diabetes mellitus with diabetic polyneuropathy, with long-term current use of insulin ([facility])- Primary Class 2 severe obesity due to excess calories with serious comorbidity and body mass index (BMI) of35.0 to 35.9 in adult ([facility])- Primary Type 2 diabetes mellitus with diabetic polyneuropathy, with long-term current use of insulin ([facility]) Long-term insulin use ([facility]) Lumbar spondylosis- Primary Lumbosacral spondylosis without myelopathy Benign essential hypertension ([facility]) Essential hypertension, benign Bilateral leg edema Edema Class 2 severe obesity due to excess calories with serious comorbidity and body mass index (BMI) of36.0 to 36.9 in adult ([facility])- Primary Type 2 diabetes mellitus with diabetic polyneuropathy, with long-term current use of insulin ([facility]) Benign essential hypertension ([facility])- Primary Essential hypertension, benign Lumbar spondylosis Lumbosacral spondylosis without myelopathy Bilateral leg edema Edema Type 2 diabetes mellitus with diabetic polyneuropathy, with long-term current use of insulin ([facility]) Hypercholesteremia ([facility]) Pure hypercholesterolemia Encounter for long-term (current) use of medications Encounter for long-term (current) use of other medications Obesity (BMI 30-39.9) Body mass index [BMI] 36.0-36.9, adult (Z68.36) JARAD (generalized anxiety disorder) ([facility])- Primary Generalized anxiety disorder Benign essential hypertension ([facility]) Essential hypertension, benign Class 2 severe obesity due to excess calories with serious comorbidity and body mass index (BMI) of35.0 to 35.9 in adult ([facility])- Primary Type 2 diabetes mellitus with diabetic polyneuropathy, with long-term current use of insulin ([facility]) Long-term insulin use (CMS/HCC) Benign essential hypertension (CMS/HCC)- Primary Essential hypertension, benign JARAD (generalized anxiety disorder) ([facility]) Generalized anxiety disorder Bilateral leg edema Edema Lumbar spondylosis Lumbosacral spondylosis without myelopathy Benign essential hypertension (CMS/HCC)- Primary Essential hypertension, benign JARAD (generalized anxiety disorder) ([facility]) Generalized anxiety disorder Lumbar spondylosis Lumbosacral spondylosis without myelopathy Bilateral leg edema Edema Prostate cancer ([facility]) Malignant neoplasm of prostate Type 2 diabetes mellitus with hyperglycemia, with long-term current use of insulin ([facility]) Class 2 severe obesity due to excess calories with serious comorbidity and body mass index (BMI) of35.0 to 35.9 in adult ([facility])- Primary Type 2 diabetes mellitus with hyperglycemia, with long-term current use of insulin ([facility]) Type 2 diabetes mellitus with diabetic polyneuropathy, with long-term current use of insulin ([facility]) Long-term insulin use ([facility]) Type 2 diabetes mellitus with stage 3a chronic kidney disease, with long-term current use of insulin (HCC) ([facility]) Class 2 severe obesity due to excess calories with serious comorbidity and body mass index (BMI) of35.0 to 35.9 in adult ([facility])- Primary Type 2 diabetes mellitus with diabetic polyneuropathy, with long-term current use of insulin ([facility]) Type 2 diabetes mellitus with stage 3a chronic kidney disease, with long-term current use of insulin (HCC) ([facility]) Long-term insulin use ([facility]) Benign essential hypertension (CMS/HCC)- Primary Essential hypertension, benign JARAD (generalized anxiety disorder) ([facility]) Generalized anxiety disorder Lumbar spondylosis Lumbosacral spondylosis without myelopathy Type 2 diabetes mellitus with diabetic polyneuropathy, with long-term current use of insulin ([facility]) Type 2 diabetes mellitus with stage 3b chronic kidney disease, with long-term current use of insulin (HCC) ([facility]) Left shoulder pain, unspecified chronicity- Primary S/P arthroscopy of left shoulder documented in this encounter [facility] HealthcareEvaluation note* Diagnosis Type 2 diabetes mellitus with diabetic polyneuropathy, with long-term current use of insulin ([facility])- Primary Class 2 severe obesity due to excess calories with serious comorbidity and body mass index (BMI) of35.0 to 35.9 in adult ([facility] [place])- Primary Type 2 diabetes mellitus with diabetic polyneuropathy, with long-term current use of insulin ([facility] [place]) Long-term insulin use ([facility] [place]) Lumbar spondylosis- Primary Lumbosacral spondylosis without myelopathy Benign essential hypertension ([facility]) Essential hypertension, benign Bilateral leg edema Edema Class 2 severe obesity due to excess calories with serious comorbidity and body mass index (BMI) of36.0 to 36.9 in adult ([facility] [place])- Primary Type 2 diabetes mellitus with diabetic polyneuropathy, with long-term current use of insulin ([facility] [place]) Benign essential hypertension ([facility] [place])- Primary Essential hypertension, benign Lumbar spondylosis Lumbosacral spondylosis without myelopathy Bilateral leg edema Edema Type 2 diabetes mellitus with diabetic polyneuropathy, with long-term current use of insulin ([facility] [place]) Hypercholesteremia ([facility] [place]) Pure hypercholesterolemia Encounter for long-term (current) use of medications Encounter for long-term (current) use of other medications Obesity (BMI 30-39.9) Body mass index [BMI] 36.0-36.9, adult (Z68.36) JARAD (generalized anxiety disorder) ([facility] [place])- Primary Generalized anxiety disorder Benign essential hypertension ([facility] [place]) Essential hypertension, benign Class 2 severe obesity due to excess calories with serious comorbidity and body mass index (BMI) of35.0 to 35.9 in adult ([facility] [place])- Primary Type 2 diabetes mellitus with diabetic polyneuropathy, with long-term current use of insulin ([facility] [place]) Long-term insulin use ([facility] [place]) Benign essential hypertension ([facility] [place])- Primary Essential hypertension, benign JARAD (generalized anxiety disorder) ([facility] [place]) Generalized anxiety disorder Bilateral leg edema Edema Lumbar spondylosis Lumbosacral spondylosis without myelopathy Benign essential hypertension ([facility])- Primary Essential hypertension, benign JARAD (generalized anxiety disorder) ([facility]) Generalized anxiety disorder Lumbar spondylosis Lumbosacral spondylosis without myelopathy Bilateral leg edema Edema Prostate cancer ([facility] [place]) Malignant neoplasm of prostate Type 2 diabetes mellitus with hyperglycemia, with long-term current use of insulin ([facility] [place]) Class 2 severe obesity due to excess calories with serious comorbidity and body mass index (BMI) of35.0 to 35.9 in adult ([facility] [place])- Primary Type 2 diabetes mellitus with hyperglycemia, with long-term current use of insulin ([facility]) Type 2 diabetes mellitus with diabetic polyneuropathy, with long-term current use of insulin ([facility]) Long-term insulin use ([facility]) Type 2 diabetes mellitus with stage 3a chronic kidney disease, with long-term current use of insulin (HCC) ([facility]) Class 2 severe obesity due to excess calories with serious comorbidity and body mass index (BMI) of35.0 to 35.9 in adult ([facility])- Primary Type 2 diabetes mellitus with diabetic polyneuropathy, with long-term current use of insulin ([facility]) Type 2 diabetes mellitus with stage 3a chronic kidney disease, with long-term current use of insulin ([facility]) ([facility]) Long-term insulin use ([facility]) Benign essential hypertension ([facility])- Primary Essential hypertension, benign JARAD (generalized anxiety disorder) ([facility]) Generalized anxiety disorder Lumbar spondylosis Lumbosacral spondylosis without myelopathy Type 2 diabetes mellitus with diabetic polyneuropathy, with long-term current use of insulin ([facility]) Type 2 diabetes mellitus with stage 3b chronic kidney disease, with long-term current use of insulin ([facility]) ([facility]) S/P arthroscopy of left shoulder- Primary documented in this encounter [facility] HealthcareEvaluation note* Diagnosis Type 2 diabetes mellitus with diabetic polyneuropathy, with long-term current use of insulin ([facility])- Primary Class 2 severe obesity due to excess calories with serious comorbidity and body mass index (BMI) of35.0 to 35.9 in adult ([facility])- Primary Type 2 diabetes mellitus with diabetic polyneuropathy, with long-term current use of insulin ([facility]) Long-term insulin use ([facility]) Lumbar spondylosis- Primary Lumbosacral spondylosis without myelopathy Benign essential hypertension ([facility]) Essential hypertension, benign Bilateral leg edema Edema Class 2 severe obesity due to excess calories with serious comorbidity and body mass index (BMI) of36.0 to 36.9 in adult ([facility])- Primary Type 2 diabetes mellitus with diabetic polyneuropathy, with long-term current use of insulin ([facility]) Benign essential hypertension ([facility])- Primary Essential hypertension, benign Lumbar spondylosis Lumbosacral spondylosis without myelopathy Bilateral leg edema Edema Type 2 diabetes mellitus with diabetic polyneuropathy, with long-term current use of insulin ([facility]) Hypercholesteremia ([facility]) Pure hypercholesterolemia Encounter for long-term (current) use of medications Encounter for long-term (current) use of other medications Obesity (BMI 30-39.9) Body mass index [BMI] 36.0-36.9, adult (Z68.36) JARAD (generalized anxiety disorder) ([facility])- Primary Generalized anxiety disorder Benign essential hypertension ([facility]) Essential hypertension, benign Class 2 severe obesity due to excess calories with serious comorbidity and body mass index (BMI) of35.0 to 35.9 in adult ([facility])- Primary Type 2 diabetes mellitus with diabetic polyneuropathy, with long-term current use of insulin ([facility]) Long-term insulin use ([facility]) Benign essential hypertension (CMS/HCC)- Primary Essential hypertension, benign JARAD (generalized anxiety disorder) ([facility]) Generalized anxiety disorder Bilateral leg edema Edema Lumbar spondylosis Lumbosacral spondylosis without myelopathy Benign essential hypertension (CMS/HCC)- Primary Essential hypertension, benign JARAD (generalized anxiety disorder) ([facility]) Generalized anxiety disorder Lumbar spondylosis Lumbosacral spondylosis without myelopathy Bilateral leg edema Edema Prostate cancer ([facility]) Malignant neoplasm of prostate Type 2 diabetes mellitus with hyperglycemia, with long-term current use of insulin ([facility]) Class 2 severe obesity due to excess calories with serious comorbidity and body mass index (BMI) of35.0 to 35.9 in adult ([facility])- Primary Type 2 diabetes mellitus with hyperglycemia, with long-term current use of insulin ([facility]) Type 2 diabetes mellitus with diabetic polyneuropathy, with long-term current use of insulin ([facility]) Long-term insulin use ([facility]) Type 2 diabetes mellitus with stage 3a chronic kidney disease, with long-term current use of insulin ([facility]) ([facility]) Class 2 severe obesity due to excess calories with serious comorbidity and body mass index (BMI) of35.0 to 35.9 in adult ([facility])- Primary Type 2 diabetes mellitus with diabetic polyneuropathy, with long-term current use of insulin ([facility]) Type 2 diabetes mellitus with stage 3a chronic kidney disease, with long-term current use of insulin (HCC) ([facility]) Long-term insulin use ([facility]) Benign essential hypertension ([facility])- Primary Essential hypertension, benign JARAD (generalized anxiety disorder) ([facility]) Generalized anxiety disorder Lumbar spondylosis Lumbosacral spondylosis without myelopathy Type 2 diabetes mellitus with diabetic polyneuropathy, with long-term current use of insulin ([facility]) Type 2 diabetes mellitus with stage 3b chronic kidney disease, with long-term current use of insulin ([facility]) ([facility] [place]) Left shoulder pain, unspecified chronicity- Primary S/P arthroscopy of left shoulder documented in this encounter [facility] HealthcareEvaluation note* Diagnosis Type 2 diabetes mellitus with diabetic polyneuropathy, with long-term current use of insulin ([facility])- Primary Class 2 severe obesity due to excess calories with serious comorbidity and body mass index (BMI) of35.0 to 35.9 in adult ([facility] [place])- Primary Type 2 diabetes mellitus with diabetic polyneuropathy, with long-term current use of insulin ([facility] [place]) Long-term insulin use ([facility] [place]) Lumbar spondylosis- Primary Lumbosacral spondylosis without myelopathy Benign essential hypertension ([facility]) Essential hypertension, benign Bilateral leg edema Edema Class 2 severe obesity due to excess calories with serious comorbidity and body mass index (BMI) of36.0 to 36.9 in adult ([facility] [place])- Primary Type 2 diabetes mellitus with diabetic polyneuropathy, with long-term current use of insulin ([facility]) Benign essential hypertension ([facility])- Primary Essential hypertension, benign Lumbar spondylosis Lumbosacral spondylosis without myelopathy Bilateral leg edema Edema Type 2 diabetes mellitus with diabetic polyneuropathy, with long-term current use of insulin ([facility] [place]) Hypercholesteremia ([facility] [place]) Pure hypercholesterolemia Encounter for long-term (current) use of medications Encounter for long-term (current) use of other medications Obesity (BMI 30-39.9) Body mass index [BMI] 36.0-36.9, adult (Z68.36) JARAD (generalized anxiety disorder) ([facility] [place])- Primary Generalized anxiety disorder Benign essential hypertension ([facility]) Essential hypertension, benign Class 2 severe obesity due to excess calories with serious comorbidity and body mass index (BMI) of35.0 to 35.9 in adult ([facility] [place])- Primary Type 2 diabetes mellitus with diabetic polyneuropathy, with long-term current use of insulin (CMS/HCC) Long-term insulin use ([facility]/HCC) Benign essential hypertension (CMS/HCC)- Primary Essential hypertension, benign JARAD (generalized anxiety disorder) (CMS/HCC) Generalized anxiety disorder Bilateral leg edema Edema Lumbar spondylosis Lumbosacral spondylosis without myelopathy Benign essential hypertension (CMS/HCC)- Primary Essential hypertension, benign JARAD (generalized anxiety disorder) (CMS/HCC) Generalized anxiety disorder Lumbar spondylosis Lumbosacral spondylosis without myelopathy Bilateral leg edema Edema Prostate cancer ([facility]/HCC) Malignant neoplasm of prostate Type 2 diabetes mellitus with hyperglycemia, with long-term current use of insulin ([facility]) Class 2 severe obesity due to excess calories with serious comorbidity and body mass index (BMI) of35.0 to 35.9 in adult ([facility])- Primary Type 2 diabetes mellitus with hyperglycemia, with long-term current use of insulin ([facility]) Type 2 diabetes mellitus with diabetic polyneuropathy, with long-term current use of insulin ([facility]/HCC) Long-term insulin use ([facility]) Type 2 diabetes mellitus with stage 3a chronic kidney disease, with long-term current use of insulin (HCC) ([facility]) Class 2 severe obesity due to excess calories with serious comorbidity and body mass index (BMI) of35.0 to 35.9 in adult ([facility])- Primary Type 2 diabetes mellitus with diabetic polyneuropathy, with long-term current use of insulin ([facility]/HCC) Type 2 diabetes mellitus with stage 3a chronic kidney disease, with long-term current use of insulin (HCC) ([facility]) Long-term insulin use ([facility]) Benign essential hypertension (CMS/HCC)- Primary Essential hypertension, benign JARAD (generalized anxiety disorder) ([facility]) Generalized anxiety disorder Lumbar spondylosis Lumbosacral spondylosis without myelopathy Type 2 diabetes mellitus with diabetic polyneuropathy, with long-term current use of insulin ([facility]/HCC) Type 2 diabetes mellitus with stage 3b chronic kidney disease, with long-term current use of insulin (HCC) ([facility]/HCC) Left shoulder pain, unspecified chronicity- Primary S/P arthroscopy of left shoulder documented in this encounter [facility] HealthcareEvaluation note* Diagnosis Type 2 diabetes mellitus with diabetic polyneuropathy, with long-term current use of insulin ([facility])- Primary Class 2 severe obesity due to excess calories with serious comorbidity and body mass index (BMI) of35.0 to 35.9 in adult ([facility] [place])- Primary Type 2 diabetes mellitus with diabetic polyneuropathy, with long-term current use of insulin ([facility]) Long-term insulin use ([facility]) Lumbar spondylosis- Primary Lumbosacral spondylosis without myelopathy Benign essential hypertension ([facility]) Essential hypertension, benign Bilateral leg edema Edema Class 2 severe obesity due to excess calories with serious comorbidity and body mass index (BMI) of36.0 to 36.9 in adult ([facility] [place])- Primary Type 2 diabetes mellitus with diabetic polyneuropathy, with long-term current use of insulin ([facility]) Benign essential hypertension ([facility])- Primary Essential hypertension, benign Lumbar spondylosis Lumbosacral spondylosis without myelopathy Bilateral leg edema Edema Type 2 diabetes mellitus with diabetic polyneuropathy, with long-term current use of insulin [facility]cholesteremia [facility] Pure hypercholesterolemia Encounter for long-term (current) use of medications Encounter for long-term (current) use of other medications Obesity (BMI 30-39.9) Body mass index [BMI] 36.0-36.9, adult (Z68.36) JARAD (generalized anxiety disorder) ([facility])- Primary Generalized anxiety disorder Benign essential hypertension ([facility]) Essential hypertension, benign Class 2 severe obesity due to excess calories with serious comorbidity and body mass index (BMI) of35.0 to 35.9 in adult ([facility] [place])- Primary Type 2 diabetes mellitus with diabetic polyneuropathy, with long-term current use of insulin [facility] Benign essential hypertension ([facility])- Primary Essential hypertension, benign JARAD (generalized anxiety disorder) ([facility]) Generalized anxiety disorder Bilateral leg edema Edema Lumbar spondylosis Lumbosacral spondylosis without myelopathy Benign essential hypertension ([facility])- Primary Essential hypertension, benign JARAD (generalized anxiety disorder) ([facility]) Generalized anxiety disorder Lumbar spondylosis Lumbosacral spondylosis without myelopathy Bilateral leg edema Edema Prostate cancer ([facility]) Malignant neoplasm of prostate Type 2 diabetes mellitus with hyperglycemia, with long-term current use of insulin ([facility]) Class 2 severe obesity due to excess calories with serious comorbidity and body mass index (BMI) of35.0 to 35.9 in adult ([facility])- Primary Type 2 diabetes mellitus with hyperglycemia, with long-term current use of insulin ([facility]) Type 2 diabetes mellitus with diabetic polyneuropathy, with long-term current use of insulin ([facility]) Long-term insulin use ([facility]) Type 2 diabetes mellitus with stage 3a chronic kidney disease, with long-term current use of insulin ([facility]) ([facility]) Class 2 severe obesity due to excess calories with serious comorbidity and body mass index (BMI) of35.0 to 35.9 in adult ([facility])- Primary Type 2 diabetes mellitus with diabetic polyneuropathy, with long-term current use of insulin ([facility]) Type 2 diabetes mellitus with stage 3a chronic kidney disease, with long-term current use of insulin ([facility]) ([facility]) Long-term insulin use ([facility]) Benign essential hypertension ([facility])- Primary Essential hypertension, benign JARAD (generalized anxiety disorder) ([facility]) Generalized anxiety disorder Lumbar spondylosis Lumbosacral spondylosis without myelopathy Type 2 diabetes mellitus with diabetic polyneuropathy, with long-term current use of insulin ([facility]) Type 2 diabetes mellitus with stage 3b chronic kidney disease, with long-term current use of insulin ([facility]) ([facility]) S/P arthroscopy of left shoulder- Primary documented in this encounter [facility] HealthcareEvaluation note* Diagnosis Type 2 diabetes mellitus with diabetic polyneuropathy, with long-term current use of insulin ([facility])- Primary Class 2 severe obesity due to excess calories with serious comorbidity and body mass index (BMI) of35.0 to 35.9 in adult ([facility])- Primary Type 2 diabetes mellitus with diabetic polyneuropathy, with long-term current use of insulin ([facility]) Long-term insulin use ([facility]) Lumbar spondylosis- Primary Lumbosacral spondylosis without myelopathy Benign essential hypertension ([facility]) Essential hypertension, benign Bilateral leg edema Edema Class 2 severe obesity due to excess calories with serious comorbidity and body mass index (BMI) of36.0 to 36.9 in adult ([facility])- Primary Type 2 diabetes mellitus with diabetic polyneuropathy, with long-term current use of insulin ([facility]) Benign essential hypertension ([facility])- Primary Essential hypertension, benign Lumbar spondylosis Lumbosacral spondylosis without myelopathy Bilateral leg edema Edema Type 2 diabetes mellitus with diabetic polyneuropathy, with long-term current use of insulin ([facility]) Hypercholesteremia ([facility]) Pure hypercholesterolemia Encounter for long-term (current) use of medications Encounter for long-term (current) use of other medications Obesity (BMI 30-39.9) Body mass index [BMI] 36.0-36.9, adult (Z68.36) JARAD (generalized anxiety disorder) ([facility])- Primary Generalized anxiety disorder Benign essential hypertension ([facility]) Essential hypertension, benign Class 2 severe obesity due to excess calories with serious comorbidity and body mass index (BMI) of35.0 to 35.9 in adult ([facility])- Primary Type 2 diabetes mellitus with diabetic polyneuropathy, with long-term current use of insulin ([facility]) Long-term insulin use ([facility]) Benign essential hypertension ([facility])- Primary Essential hypertension, benign JARAD (generalized anxiety disorder) ([facility]) Generalized anxiety disorder Bilateral leg edema Edema Lumbar spondylosis Lumbosacral spondylosis without myelopathy Benign essential hypertension (CMS/HCC)- Primary Essential hypertension, benign JARAD (generalized anxiety disorder) ([facility]) Generalized anxiety disorder Lumbar spondylosis Lumbosacral spondylosis without myelopathy Bilateral leg edema Edema Prostate cancer ([facility]) Malignant neoplasm of prostate Type 2 diabetes mellitus with hyperglycemia, with long-term current use of insulin ([facility]) Class 2 severe obesity due to excess calories with serious comorbidity and body mass index (BMI) of35.0 to 35.9 in adult ([facility])- Primary Type 2 diabetes mellitus with hyperglycemia, with long-term current use of insulin ([facility]) Type 2 diabetes mellitus with diabetic polyneuropathy, with long-term current use of insulin ([facility]) Long-term insulin use ([facility]) Type 2 diabetes mellitus with stage 3a chronic kidney disease, with long-term current use of insulin ([facility]) ([facility]) Class 2 severe obesity due to excess calories with serious comorbidity and body mass index (BMI) of35.0 to 35.9 in adult ([facility])- Primary Type 2 diabetes mellitus with diabetic polyneuropathy, with long-term current use of insulin ([facility]) Type 2 diabetes mellitus with stage 3a chronic kidney disease, with long-term current use of insulin (HCC) ([facility]) Long-term insulin use ([facility]) Benign essential hypertension ([facility])- Primary Essential hypertension, benign JARAD (generalized anxiety disorder) ([facility]) Generalized anxiety disorder Lumbar spondylosis Lumbosacral spondylosis without myelopathy Type 2 diabetes mellitus with diabetic polyneuropathy, with long-term current use of insulin ([facility]) Type 2 diabetes mellitus with stage 3b chronic kidney disease, with long-term current use of insulin ([facility]) ([facility]) Class 2 severe obesity due to excess calories with serious comorbidity and body mass index (BMI) of37.0 to 37.9 in adult ([facility])- Primary Type 2 diabetes mellitus with diabetic polyneuropathy, with long-term current use of insulin ([facility]) Type 2 diabetes mellitus with stage 3b chronic kidney disease, with long-term current use of insulin ([facility]) ([facility]) Type 2 diabetes mellitus with hyperglycemia, with long-term current use of insulin ([facility]) documented in this encounter [facility] HealthcareEvaluation note* Diagnosis Obstructive sleep apnea syndrome- Primary Obstructive sleep apnea (adult) (pediatric) [facility] Diagnosis Obstructive sleep apnea syndrome Obstructive sleep apnea (adult) (pediatric) CSA (central sleep apnea) Unspecified sleep apnea [facility] Diagnosis Personal history of tobacco use, presenting hazards to health- Primary Obstructive sleep apnea syndrome Obstructive sleep apnea (adult) (pediatric) CSA (central sleep apnea) Unspecified sleep apnea [facility] Diagnosis Encounter for other preprocedural examination [facility] Diagnosis Obstructive sleep apnea syndrome- Primary Obstructive sleep apnea (adult) (pediatric) Personal history of tobacco use, presenting hazards to health [facility] Diagnosis Type 2 diabetes mellitus with diabetic polyneuropathy, with long-term current use of insulin ([facility])- Primary Class 2 severe obesity due to excess calories with serious comorbidity and body mass index (BMI) of35.0 to 35.9 in adult ([facility])- Primary Type 2 diabetes mellitus with diabetic polyneuropathy, with long-term current use of insulin ([facility]) Long-term insulin use ([facility]) Lumbar spondylosis- Primary Lumbosacral spondylosis without myelopathy Benign essential hypertension ([facility]) Essential hypertension, benign Bilateral leg edema Edema Class 2 severe obesity due to excess calories with serious comorbidity and body mass index (BMI) of36.0 to 36.9 in adult ([facility] Primary Type 2 diabetes mellitus with diabetic polyneuropathy, with long-term current use of insulin ([facility]) Benign essential hypertension ([facility])- Primary Essential hypertension, benign Lumbar spondylosis Lumbosacral spondylosis without myelopathy Bilateral leg edema Edema Type 2 diabetes mellitus with diabetic polyneuropathy, with long-term current use of insulin ([facility]) [facility]cholesteremia [facility] Pure hypercholesterolemia Encounter for long-term (current) use of medications Encounter for long-term (current) use of other medications Obesity (BMI 30-39.9) Body mass index [BMI] 36.0-36.9, adult (Z68.36) JARAD (generalized anxiety disorder) ([facility])- Primary Generalized anxiety disorder Benign essential hypertension ([facility]) Essential hypertension, benign Class 2 severe obesity due to excess calories with serious comorbidity and body mass index (BMI) of35.0 to 35.9 in adult ([facility] Primary Type 2 diabetes mellitus with diabetic polyneuropathy, with long-term current use of insulin [facility]-term [facility] use [facility] Benign essential hypertension ([facility])- Primary Essential hypertension, benign JARAD (generalized anxiety disorder) ([facility]) Generalized anxiety disorder Bilateral leg edema Edema Lumbar spondylosis Lumbosacral spondylosis without myelopathy Benign essential hypertension ([facility])- Primary Essential hypertension, benign JARAD (generalized anxiety disorder) ([facility]) Generalized anxiety disorder Lumbar spondylosis Lumbosacral spondylosis without myelopathy Bilateral leg edema Edema Prostate cancer ([facility]) Malignant neoplasm of prostate Type 2 diabetes mellitus with hyperglycemia, with long-term current use of insulin [facility] Class 2 severe obesity due to excess calories with serious comorbidity and body mass index (BMI) of35.0 to 35.9 in adult ([facility] [place])- Primary Type 2 diabetes mellitus with hyperglycemia, with long-term current use of insulin [facility] Type 2 diabetes mellitus with diabetic polyneuropathy, with long-term current use of insulin ([facility]) Long-term insulin use ([facility]) Type 2 diabetes mellitus with stage 3a chronic kidney disease, with long-term current use of insulin (HCC) ([facility]) Class 2 severe obesity due to excess calories with serious comorbidity and body mass index (BMI) of35.0 to 35.9 in adult ([facility])- Primary Type 2 diabetes mellitus with diabetic polyneuropathy, with long-term current use of insulin ([facility]) Type 2 diabetes mellitus with stage 3a chronic kidney disease, with long-term current use of insulin (HCC) ([facility]) Long-term insulin use ([facility]) Benign essential hypertension ([facility])- Primary Essential hypertension, benign JARAD (generalized anxiety disorder) ([facility]) Generalized anxiety disorder Lumbar spondylosis Lumbosacral spondylosis without myelopathy Type 2 diabetes mellitus with diabetic polyneuropathy, with long-term current use of insulin ([facility]) Type 2 diabetes mellitus with stage 3b chronic kidney disease, with long-term current use of insulin (HCC) ([facility]) Class 2 severe obesity due to excess calories with serious comorbidity and body mass index (BMI) of37.0 to 37.9 in adult ([facility])- Primary Type 2 diabetes mellitus with diabetic polyneuropathy, with long-term current use of insulin ([facility]) Type 2 diabetes mellitus with stage 3b chronic kidney disease, with long-term current use of insulin (HCC) ([facility]) Type 2 diabetes mellitus with hyperglycemia, with long-term current use of insulin ([facility]) Diabetic polyneuropathy associated with type 2 diabetes mellitus ([facility])- Primary Encounter for long-term (current) use of insulin ([facility] [facility]) Encounter for long-term (current) use of insulin Chronic painful diabetic neuropathy ([facility]) 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 documented in this encounter [facility] HealthcareEvaluation note* Diagnosis SOB (shortness of breath)- Primary Shortness of breath [facility] Diagnosis SOB (shortness of breath)- Primary Shortness of breath [facility] Diagnosis SOB (shortness of breath)- Primary Shortness of breath Personal history of tobacco use, presenting hazards to health Obstructive sleep apnea syndrome Obstructive sleep apnea (adult) (pediatric) documented [facility]* Diagnosis Type 2 diabetes mellitus with diabetic polyneuropathy, with long-term current use of insulin ([facility])- Primary Class 2 severe obesity due to excess calories with serious comorbidity and body mass index (BMI) of35.0 to 35.9 in adult ([facility])- Primary Type 2 diabetes mellitus with diabetic polyneuropathy, with long-term current use of insulin (HCC) Long-term insulin use ([facility]) Lumbar spondylosis- Primary Lumbosacral spondylosis without myelopathy Benign essential hypertension Essential hypertension, benign Bilateral leg edema Edema Class 2 severe obesity due to excess calories with serious comorbidity and body mass index (BMI) of36.0 to 36.9 in adult ([facility] Primary Type 2 diabetes mellitus with diabetic polyneuropathy, with long-term current use of insulin ([facility]) Benign essential hypertension- Primary Essential hypertension, benign Lumbar spondylosis Lumbosacral spondylosis without myelopathy Bilateral leg edema Edema Type 2 diabetes mellitus with diabetic polyneuropathy, with long-term current use of insulin ([facility]) Hypercholesteremia Pure hypercholesterolemia Encounter for long-term [...] index (BMI) of35.0 to 35.9 in adult ([facility] Primary Type 2 diabetes mellitus with diabetic polyneuropathy, with long-term current use of insulin (HCC) Long-term insulin use ([facility]) Benign essential hypertension- Primary Essential hypertension, [...] hyperglycemia, with long-term current use of insulin ([facility]) Class 2 severe obesity due to excess calories with serious comorbidity and body mass index (BMI) of35.0 to 35.9 in adult ([facility] Primary Type 2 diabetes mellitus with hyperglycemia, with long-term current use of insulin ([facility]) Type 2 diabetes mellitus with diabetic polyneuropathy, with long-term current use of insulin ([facility]) Long-term insulin use ([facility]) Type 2 diabetes mellitus with stage 3a chronic kidney disease, with long-term current use of insulin ([facility]) Class 2 severe obesity due to excess calories with serious comorbidity and body mass index (BMI) of35.0 to 35.9 in adult ([facility] Primary Type 2 diabetes mellitus with diabetic polyneuropathy, with long-term current use of insulin ([facility]) Type 2 diabetes mellitus with stage 3a chronic kidney disease, with long-term current use of insulin ([facility]) Long-term insulin use ([facility]) Benign essential hypertension- Primary Essential hypertension, benign JARAD (generalized anxiety disorder) Generalized anxiety disorder Lumbar spondylosis Lumbosacral spondylosis without myelopathy Type 2 diabetes mellitus with diabetic polyneuropathy, with long-term current use of insulin ([facility]) Type 2 diabetes mellitus with stage 3b chronic kidney disease, with long-term current use of insulin ([facility]) Class 2 severe obesity due to excess calories with serious comorbidity and body mass index (BMI) of37.0 to 37.9 in adult ([facility] Primary Type 2 diabetes mellitus with diabetic polyneuropathy, with long-term current use of insulin ([facility]) Type 2 diabetes mellitus with stage 3b chronic kidney disease, with long-term current use of insulin ([facility]) Type 2 diabetes mellitus with hyperglycemia, with long-term current use of insulin ([facility]) Type 2 diabetes mellitus with hyperglycemia, with long-term current use of insulin ([facility])- Primary Primary hypertension Unspecified essential hypertension Insulin long-term use ([facility]) Encounter for long-term (current) use of insulin Hyperlipemia, mixed Mixed hyperlipidemia Encounter for dietary consultation Class 2 severe obesity due to excess calories with serious comorbidity and body mass index (BMI) of38.0 to 38.9 in adult ([facility]) Stage 3b chronic kidney disease ([facility]) Type 2 diabetes mellitus with diabetic polyneuropathy, with long-term current use of insulin ([facility]) documented in this encounter [facility] HealthcareEvaluation note* Diagnosis Type 2 diabetes mellitus with diabetic polyneuropathy, with long-term current use of insulin ([facility])- Primary Class 2 severe obesity due to excess calories with serious comorbidity and body mass index (BMI) of35.0 to 35.9 in adult ([facility] Primary Type 2 diabetes mellitus with diabetic polyneuropathy, with long-term current use of insulin ([facility]) Long-term insulin use ([facility]) Lumbar spondylosis- Primary Lumbosacral spondylosis without myelopathy Benign essential hypertension Essential hypertension, benign Bilateral leg edema Edema Class 2 severe obesity due to excess calories with serious comorbidity and body mass index (BMI) of36.0 to 36.9 in adult ([facility])- Primary Type 2 diabetes mellitus with diabetic polyneuropathy, with long-term current use of insulin ([facility]) Benign essential hypertension- Primary Essential hypertension, benign Lumbar spondylosis Lumbosacral spondylosis without myelopathy Bilateral leg edema Edema Type 2 diabetes mellitus with diabetic polyneuropathy, with long-term current use of insulin ([facility]) Hypercholesteremia Pure hypercholesterolemia Encounter for long-term [...] index (BMI) of35.0 to 35.9 in adult ([facility] Primary Type 2 diabetes mellitus with diabetic polyneuropathy, with long-term current use of insulin ([facility]) Long-term insulin use ([facility]) Benign essential hypertension- Primary Essential hypertension, benign JARAD (generalized anxiety disorder) Generalized anxiety disorder Bilateral leg edema Edema Lumbar spondylosis Lumbosacral spondylosis without myelopathy Benign essential hypertension- Primary Essential hypertension, benign JARAD (generalized anxiety disorder) Generalized anxiety disorder Lumbar spondylosis Lumbosacral spondylosis without myelopathy Bilateral leg edema Edema Prostate cancer ([facility]) Malignant neoplasm of prostate Type 2 diabetes mellitus with hyperglycemia, with long-term current use of insulin ([facility]) Class 2 severe obesity due to excess calories with serious comorbidity and body mass index (BMI) of35.0 to 35.9 in adult ([facility] Primary Type 2 diabetes mellitus with hyperglycemia, with long-term current use of insulin ([facility]) Type 2 diabetes mellitus with diabetic polyneuropathy, with long-term current use of insulin ([facility]) Long-term insulin use (HCC) Type 2 diabetes mellitus with stage 3a chronic kidney disease, with long-term current use of insulin (HCC) Class 2 severe obesity due to excess calories with serious comorbidity and body mass index (BMI) of35.0 to 35.9 in adult ([facility])- Primary Type 2 diabetes mellitus with diabetic polyneuropathy, with long-term current use of insulin (HCC) Type 2 diabetes mellitus with stage 3a chronic kidney disease, with long-term current use of insulin (HCC) Long-term insulin use (HCC) Benign essential hypertension- Primary Essential hypertension, benign JARAD (generalized anxiety disorder) Generalized anxiety disorder Lumbar spondylosis Lumbosacral spondylosis without myelopathy Type 2 diabetes mellitus with diabetic polyneuropathy, with long-term current use of insulin ([facility]) Type 2 diabetes mellitus with stage 3b chronic kidney disease, with long-term current use of insulin ([facility]) Class 2 severe obesity due to excess calories with serious comorbidity and body mass index (BMI) of37.0 to 37.9 in adult ([facility] Primary Type 2 diabetes mellitus with diabetic polyneuropathy, with long-term current use of insulin ([facility]) Type 2 diabetes mellitus with stage 3b chronic kidney disease, with long-term current use of insulin ([facility]) Type 2 diabetes mellitus with hyperglycemia, with long-term current use of insulin (HCC) Acute pain of right knee- Primary Arthritis of right knee documented in this encounter [facility] HealthcareEvaluation note* Diagnosis FRANK (obstructive sleep apnea)- Primary Obstructive sleep apnea (adult) (pediatric) [facility] Diagnosis Type 2 diabetes mellitus with diabetic polyneuropathy, with long-term current use of insulin (HCC)- Primary Class 2 severe obesity due to excess calories with serious comorbidity and body mass index (BMI) of35.0 to 35.9 in adult- Primary Type 2 diabetes mellitus with diabetic polyneuropathy, with long-term current use of insulin (HCC) Long-term insulin use (HCC) Lumbar spondylosis- Primary Lumbosacral spondylosis without myelopathy Benign essential hypertension Essential hypertension, benign Bilateral leg edema Edema Class 2 severe obesity due to excess calories with serious comorbidity and body mass index (BMI) of36.0 to 36.9 in adult- Primary Type 2 diabetes mellitus with diabetic polyneuropathy, with long-term current use of insulin (HCC) Benign essential hypertension- Primary Essential hypertension, benign Lumbar spondylosis Lumbosacral spondylosis without myelopathy Bilateral leg edema Edema Type 2 diabetes mellitus with diabetic polyneuropathy, with long-term current use of insulin (HCC) Hypercholesteremia Pure hypercholesterolemia Encounter for long-term (current) use of medications Encounter for long-term (current) use of other medications Obesity (BMI 30-39.9) Body mass index [BMI] 36.0-36.9, adult (Z68.36) JARAD (generalized anxiety disorder)- Primary Generalized anxiety disorder Benign essential hypertension Essential hypertension, benign Class 2 severe obesity due to excess calories with serious comorbidity and body mass index (BMI) of35.0 to 35.9 in adult- Primary Type 2 diabetes mellitus with diabetic [...] with long-term current use of insulin (HCC) Class 2 severe obesity due to excess calories with serious comorbidity and body mass index (BMI) of35.0 to 35.9 in adult- Primary Type 2 diabetes mellitus with hyperglycemia, with long-term current use of insulin (HCC) Type 2 diabetes mellitus with diabetic polyneuropathy, with long-term current use of insulin (HCC) Long-term insulin use (HCC) Type 2 diabetes mellitus with stage 3a chronic kidney disease, with long-term current use of insulin (HCC) Class 2 severe obesity due to excess calories with serious comorbidity and body mass index (BMI) of35.0 to 35.9 in adult- Primary Type 2 diabetes mellitus with diabetic polyneuropathy, with long-term current use of insulin (HCC) Type 2 diabetes mellitus with stage 3a chronic kidney disease, with long-term current use of insulin (HCC) Long-term insulin use (HCC) Benign essential hypertension- Primary Essential hypertension, benign JARAD (generalized anxiety disorder) Generalized anxiety disorder Lumbar spondylosis Lumbosacral spondylosis without myelopathy Type 2 diabetes mellitus with diabetic polyneuropathy, with long-term current use of insulin (HCC) Type 2 diabetes mellitus with stage 3b chronic kidney disease, with long-term current use of insulin (HCC) Class 2 severe obesity due to excess calories with serious comorbidity and body mass index (BMI) of37.0 to 37.9 in adult- Primary Type 2 diabetes mellitus with diabetic polyneuropathy, with long-term current use of insulin (HCC) Type 2 diabetes mellitus with stage 3b chronic kidney disease, with long-term current use of insulin (HCC) Type 2 diabetes mellitus with hyperglycemia, with long-term current use of insulin (HCC) Type 2 diabetes mellitus with hyperglycemia, without long-term current use of insulin (HCC)- Primary Primary hypertension Unspecified essential hypertension Hyperlipemia, mixed Mixed hyperlipidemia Encounter for dietary consultation Class 2 severe obesity due to excess calories with serious comorbidity and body mass index (BMI) of38.0 to 38.9 in adult Stage 3b chronic kidney disease (CMS-HCC) documented in this encounter [facility]History and physical note Author Kike Bernal [facility] July 24, 2022 1:05pmNote Date/TimeFebruary 2022 1:05pm[place] [address] Gastroenterology H&P Signed Patient: Milad Seymour MR#: [id number] : 1955 Acct:[id number] Age/Sex: 66 / M Adm Date: 3 Loc: Room: Type: [facility] Attending Dr: Kike Bernal MD Copies to: MD Dank Ralph MD~ Date of Service: 07/24/2022 HISTORY & PHYSICAL: Patient's history with special attention to the cardiovascular, pulmonary systems and the current problem was reviewed with the patient immediately prior to the procedure. Present medications and doses reviewed in the EMR. Allergies and pertinent laboratory tests were also re viewedat this time in the EMR. The physical [...] signed by Kike Bernal MD> 07/24/22 1305 [facility] Work Phone: History and physical note Author Kike Bernal [facility] April 27, 2023 11:41amNote Date/TimeNov2022 11:41[place] [address] Gastroenterology H&P Signed Patient: Milad Seymour MR#: [id number] : 1955 Acct:[id number] Age/Sex: 67 / M Adm Date: 3 Loc: Room: Type: [facility] Attending Dr: Kike Bernal MD Copies to: MD Dank Ralph MD~ Date of Service: 04/27/2023 HISTORY & PHYSICAL: Patient's history with special attention to the cardiovascular, pulmonary systems and the current problem was reviewed with the patient immediately prior to the procedure. Present medications and doses reviewed in the EMR. Allergies and pertinent laboratory tests were also re viewedat this time in the EMR. The physical examination, as below, was then performed. Indication, assessment and HPI: 67-year-old man with history of colonic polyps here for colonoscopyfor evaluation of alternating diarrhea/constipation and hematochezia Family [...] signed by Kike Bernal MD> 04/27/23 1141 [facility] Work Phone: History general Narrative - Reported* Type Description Date Medical History DM II Medical HistoryHTNMedical HistoryGERDMedical HistoryhyperlipidemiaMedical HistorydementiaSurgical HistoryappendectomySurgical Historyknee surgerySurgical Historyrotator cuff-right, three surgeriesSurgical Historyrotator cuff-left Surgical Historytubes in earSurgical Historyheel spurHospitalization History [id number] Historynone in the last [id number] [employer] Other Hospital course Narrative No data available for this section [facility] Hospital Discharge instructions Additional Instructions DISCHARGE [...] NOT operate machinery such as power tools, Catapultn mowers, snow blowers, sewing machines, etc. for [...] problems. -Follow up with PCP. -Office number [phone]. [facility] Work Phone: Hospital Discharge instructions No data available for this section [facility] Hospital Discharge instructions Additional Instructions DISCHARGE [...] in the office as scheduled -Office number [phone]. [facility] Work Phone: InstructionsNot on filedocumented in this encounter [facility] filedocumented in this encounter [facility]ructionsNot on filedocumented in this encounter [facility]ructionsNot on filedocumented in this encounter [facility]ructionsNot on filedocumented in this encounter [facility] No data available for this section [facility] reason for referral (narrative)No reason for referral information availableUniversity [facility] Work Phone: Reason for visit Narrative* Consultation (Routine) - AuthorizedSpecialtyDiagnoses / ProceduresReferred By ContactReferred To ContactPhysical Therapy Diagnoses S/P arthroscopy of left shoulder Procedures [place] OFFICE/OUTPATIENT [facility] Rebecca Dias PA [address] [facility] [address] [place] [address] Phone: tel: fax: Alma Berkowitz, PT Referral IDStatusReasonStart DateExpiration DateVisits RequestedVisits [id number] Consult and Treat [facility] HealthcareReason for visit Narrative* Consultation (Routine) - Closed SpecialtyDiagnoses / ProceduresReferred By ContactReferred To ContactPhysical Therapy Diagnoses S/P arthroscopy of left shoulder Procedures CA OFFICE/OUTPATIENT [facility] Rbeecca Dias PA [address] [facility] [address] [place] [address] Phone: tel: fax: Alma Berkowitz, PT Referral IDStatusReasonStart DateExpiration DateVisits RequestedVisits [id number] Consult and Treat [facility] HealthcareReason for visit Narrative* Rehabilitation - Outpatient (Routine) - AuthorizedSpecialtyDiagnoses / ProceduresReferred By ContactReferred To ContactPhysical Therapy Diagnoses S/P arthroscopy of left shoulder Procedures CA THER PX 1/> AREAS EACH 15 MIN NEUROMUSC REEDUCA CA THERAPEUTIC PX 1/> AREAS EACH 15 MIN EXERCISES CA OFFICE/OUTPATIENT [facility] 60 MINUTES PHYS/OCC THERAPY SS Rebecca Dias PA [address] [place] [address] Phone: tel: fax: Alma Berkowitz, PT Referral IDStatusReasonStart DateExpiration DateVisits RequestedVisits [id number] [facility] Healthcare Summary Purpose Family History Relationship Condition Age at Onset Recorded Date/T katelyn father Cerebrovascular accident (CVA) Unknown Myocardial infarctionUnknownNot SpecifiedCerebrovascular accident (CVA)Unknown Relationship Condition Age at Onset Recorded Date/T katelyn father Myocardial infarction Unknown Cerebrovascular accident (CVA)UnknownNot SpecifiedCerebrovascular accident (CVA) UnknownDiabetes mellitusUnknowndaughterHypertensionUnknown Relationship Condition Age at Onset Recorded Date/T katelyn father Myocardial infarction Unknown Cerebrovascular accident (CVA)UnknownmotherCerebrovascular accident (CVA)Unknown Diabetes mellitusUnknowndaughterHypertensionUnknown Advance Directives Advance Directive Response Recorded Date/ Time Advance Directives No October 11, 2 018 1:12pm Advance Directive Response Recorded Date/ Time Advance Directives No October 11, 2 018 2:12pm Date ActivatedDate InactivatedComments12/20/2018 5:21 AM12/23/2018 4:36 PMCode StatusDate ActivatedDate InactivatedCommentsFull Code12/20/2018 5:21 AM12/23/2018 4:36 PMDate ActivatedDate InactivatedComments12/20/2018 5:21 AM12/23/2018 4:36 PM Code StatusDate ActivatedDate InactivatedCommentsFull Code12/20/2018 5:21 AM 12/23/2018 4:36 PM Chief Complaint and Reason for Visit Chief Complaint Gerd, Dysphagia Chief Complaint Constipation, Diarrh ea, Blood in Stool Chief Complaint Constipation, Diarrh ea, Blood in Stool m47.816 Chief Complaint m47.816 m24.812 m47.816Reason for VisitH/O rotator cuff surgery Chief Complaint dysphagia Reason for Visit Diarrhea GERD (gastroesophageal reflux disease) Chief Complaint dysphagia 1 MONTH FOLLOW UP/ GERD/CONSTIPATIONReason for VisitDiarrhea GERD (gastroesophageal reflux disease) Chief Complaint Admit [...] 23, 2024 2: 02pm Reason for Referral SpecialtyDiagnoses / ProceduresReferred By ContactReferred To Contact Diagnoses Obstructive sleep apnea syndrome CSA (central sleep apnea) Procedures Polysomnography 4 or more parameters with PAP titration [facility] [address] [address] Referral IDStatusReasonStart DateExpiration DateVisits RequestedVisits [id number] / ProceduresReferred By ContactReferred To Contact Diagnoses Obstructive sleep apnea syndrome CSA (central sleep apnea) Procedures Echo complete W/O contrast [facility] [address] [address] Phone: [phone] Referral IDStatReasonBallwin DateExpiration DateVisits RequestedVisits [id number] / Procedures Referred By ContactReferred To ContactRadiology Diagnoses Personal history of tobacco use, presenting hazards to health Procedures CT low dose lung screenin (3mo 6mo follow-up) Greg[facility] [address] [address] Phone: [phone] Referral IDStatusReasonStart DateExpiration DateVisits RequestedVisits [id number]/29/20245/ Additional Source Comments (unrecognized sect ion and content) No Status Records FoundNo Status Records FoundNo Status Records FoundNo Status Records FoundNo Status Records FoundNo Status Records FoundNo Status Records FoundNo Status Records FoundNo Status Records FoundNo Status Records FoundNo Status Records Found INFORMATION SOURCE (unrecogn ized section and content) DATE CREATED AUTHOR 08/06/2021 [facility] DATE CREATED AUTHOR AUTHOR'S ORGANIZ ATION 10/24/2022 [facility] DATE CREATED AUTHOR AUTHOR'S ORGANIZ ATION 12/15/2023 [facility] DATE CREATED AUTHOR AUTHOR'S ORGANIZ ATION 08/01/2024 [facility] DATE CREATED AUTHOR AUTHOR'S ORGANIZ ATION 08/09/2024 [facility] DATE CREATED AUTHOR AUTHOR'S ORGANIZ ATION 10/28/2024 [facility] DATE CREATED AUTHOR AUTHOR'S ORGANIZ ATION 11/18/2024 [facility] DATE CREATED AUTHOR AUTHOR'S ORGANIZ ATION 12/05/2024 [facility] DATE CREATED AUTHOR AUTHOR'S ORGANIZ ATION 02/11/2025 [facility] DATE CREATED AUTHOR AUTHOR'S ORGANIZ ATION 02/18/2025 [facility] DATE CREATED AUTHOR AUTHOR'S ORGANIZ ATION 04/30/2025 [facility] EPIC Care Team (unrecognized sect ion and content) Team Status: Active Member Role Status Dates Dank Campo MD Primary Care Provider Active Team Status: Inactive Member Role Status Dates Dank Campo MD Primary Care Provider Active Rachele Ralph ProviderActive Team Status: Inactive Member Role Status Dates Dank Campo MD Primary Care Provider, Attending Pro vider Active Team Status: Inactive Member Role Status Dates Dank Campo MD Primary Care Provider Active S tart: April 27, 2023 End: April 27, 2023ImaRachele Horn ProviderActiveStart: April 27, 2023 End: April 27, 2023 Team Status: Inactive Member Role Status Dates Dank Campo MD Primary Care Provide r, Attending Provider Active Start: July 17, 2023 End: July 17, 2023Team MemberRelationshipSpecialtyStart DateEnd Date Dank Campo MD [address] [place] [address] PCP - GeneralFamily Medicine07/25/23Team MemberRelationshipSpecialtyStart DateEnd Date Dank Campo MD [address] [place] [address] PCP - [facility]07/25/23 Team Status: Inactive Member Role Status Dates Dank Campo MD Primary Care Provider Active S tart: July 24, 2023 End: July 24, 2023Granbrad Boswell NP-CAtcody ProviderActiveStart: July 24, 2023 End: July 24, 2023 Team Status: Inactive Member Role Status Dates Dank Campo MD Primary Care Provide r, Attending Provider, Referring Provider Active Start: August 09, 2023 End: August 09, 2023 Team Status: Inactive Member Role Status Dates Dank Campo MD Primary Care Provider Active S tart: March 17, 2024 End: March 17Gabe Parra ProviderActiveStart: March 17, 2024 End: March 17, 2024Team MemberRelationshipSpecialtyStart DateEnd Date Dank Campo MD [address] [place] [address] [facility] - [facility]08/17/23Team MemberRelationshipSpecialtyStart DateEnd Date Dank Campo MD [address] [place] [address] [facility] - [facility] Medicine08/17/23Team MemberRelationshipSpecialtyStart DateEnd Date Dank Campo MD [address] [place] [address] [facility] - [facility] Medicine08/17/23Team MemberRelationshipSpecialtyStart DateEnd Date Dank Campo MD [address] [place] [address] PCP - Generalmi Medicine08/17/23Team MemberRelationshipSpecialtyStart DateEnd Date Dank Campo MD [address] [place] [address] PCP - Generalmily Medicine08/17/23Team MemberRelationshipSpecialtyStart DateEnd Date Dank Campo MD [address] [place] [address] PCP - [facility] Medicine08/17/23Team MemberRelationshipSpecialtyStart DateEnd Date Dank Campo MD [address] [place] [address] PCP - [facility] Medicine08/17/23 Team Status: Inactive Member Role Status Dates Dank Campo MD Primary Care Provider Active S tart: April 15, 2024 End: April 15bib Alvares , [facility] hospit[facility] ProviderActiveStart: April 15, 2024 End: April 15, 2024Team MemberRelationshipSpecialtyStart DateEnd Date Dank Campo MD [address] [place] [address] [facility]Team MemberRelationshipSpecialtyStart DateEnd Date Dank Campo MD [address] [place] [address] PCP - Generalmi Medicine08/17/23Team MemberRelationshipSpecialtyStart DateEnd Date Dank Campo MD [address] [place] [address] PCP - [facility] Medicine08/17/23Team MemberRelationshipSpecialtyStart DateEnd Date Dank Campo MD [address] [place] [address] PCP - [facility] Medicine08/17/23Team MemberRelationshipSpecialtyStart DateEnd Date Dakn Campo MD [address] [place] [address] PCP - [facility] Medicine08/17/23Team MemberRelationshipSpecialtyStart DateEnd Date Dank Campo MD [address] [place] [address] PCP - [facility] Medicine08/17/23Team MemberRelationshipSpecialtyStart DateEnd Date Dank Campo MD [address] [place] [address] PCP - Generalmi Medicine08/17/23Team MemberRelationshipSpecialtyStart DateEnd Date Dank Campo MD [address] [place] [address] PCP - [facility] Medicine08/17/23Team MemberRelationshipSpecialtyStart DateEnd Date Dank Campo MD [address] [place] [address] PCP - GeneralFamily Medicine08/17/23Team MemberRelationshipSpecialtyStart DateEnd Date Dank Campo MD [address] [place] [address] PCP - GeneralFamily Medicine08/17/23Team MemberRelationshipSpecialtyStart DateEnd Date Dank Campo MD [address] [place] [address] PCP - GeneralFamily Medicine08/17/23Team MemberRelationshipSpecialtyStart DateEnd Date Dank Campo MD [address] [place] [address] PCP - GeneralFamily Medicine08/17/23Team MemberRelationshipSpecialtyStart DateEnd Date Dank Campo MD [address] [place] [address] PCP - GeneralFamily Medicine08/17/23Team MemberRelationshipSpecialtyStart DateEnd Date Dank Campo MD [address] [place] [address] PCP - GeneralFamily Medicine08/17/23Team MemberRelationshipSpecialtyStart DateEnd Date Dank Campo MD [address] [place] [address] PCP - GeneralFamily Medicine08/17/23Team MemberRelationshipSpecialtyStart DateEnd Date Dank Campo MD [address] [place] [address] PCP - GeneralFamily Medicine08/17/23Team MemberRelationshipSpecialtyStart DateEnd Date Dank Campo MD [address] [place] [address] PCP - GeneralFamily Medicine08/17/23Team MemberRelationshipSpecialtyStart DateEnd Date Dank Campo MD [address] [place] [address] PCP - GeneralFamily Medicine08/17/23Team MemberRelationshipSpecialtyStart DateEnd Date Dank Campo MD [address] [place] [address] PCP - GeneralFamily Medicine08/17/23Team MemberRelationshipSpecialtyStart DateEnd Date Dank Campo MD [address] [place] [address] PCP - GeneralFamily Medicine08/17/23Team MemberRelationshipSpecialtyStart DateEnd Date Dank Campo MD [address] [place] [address] PCP - GeneralFamily Medicine08/17/23Team MemberRelationshipSpecialtyStart DateEnd Date Dank Campo MD [address] [place] [address] PCP - GeneralFamily Medicine08/17/23Team MemberRelationshipSpecialtyStart DateEnd Date Dank Campo MD [address] [place] [address] PCP - GeneralFamily Medicine08/17/23Team MemberRelationshipSpecialtyStart DateEnd Date Dank Campo MD [address] [place] [address] PCP - GeneralFamily Medicine08/17/23Team MemberRelationshipSpecialtyStart DateEnd Date Dank Campo MD [address] [place] [address] PCP - GeneralFamily Medicine08/17/23Team MemberRelationshipSpecialtyStart DateEnd Date Dank Campo MD [address] [place] [address] PCP - GeneralFamily Medicine08/17/23Team MemberRelationshipSpecialtyStart DateEnd Date Dank Campo MD [address] [place] [address] PCP - GeneralFamily Medicine08/17/23Team MemberRelationshipSpecialtyStart DateEnd Date Dank Campo MD [address] [place] [address] PCP - GeneralFamily Medicine08/17/23Team MemberRelationshipSpecialtyStart DateEnd Date Dank Campo MD [address] [place] [address] PCP - [facility] Medicine08/17/23Team MemberRelationshipSpecialtyStart DateEnd Date Dank Campo MD [address] [place] [address] PCP - [facility] Medicine08/17/23Team MemberRelationshipSpecialtyStart DateEnd Date Dank Campo MD [address] [place] [address] PCP - [facility]08/17/23 Team Status: Inactive Member Role Status Dates Dank Campo MD Primary Care Provider Active S tart: July 30, 2024 End: July 30, 2024Rich Alvares , APRNAtmonicauniversal health services ProviderActiveStart: July 30, 2024 End: July 30, 2024Team MemberRelationshipSpecialtyStart DateEnd Date Dank Campo MD [address] [place] [address] PCP - [facility]08/17/23Team MemberRelationshipSpecialtyStart DateEnd Date Dank Campo MD [address] [place] [address] PCP - Generalmi Medicine12/10/17Team MemberRelationshipSpecialtyStart DateEnd Date Dank Campo MD [address] [place] [address] PCP - Generalmi Medicine12/10/17Team MemberRelationshipSpecialtyStart DateEnd Date Dank Campo MD [address] [place] [facility] [address] PCP - GeneralFamily Medicine12/10/17Team MemberRelationshipSpecialtyStart DateEnd Date Dank Campo MD [address] [place] [facility] [place] [address] PCP - GeneralFamily Medicine12/10/17Team MemberRelationshipSpecialtyStart DateEnd Date Dank Campo MD [address] [place] [facility] [place] [address] PCP - GeneralFamily Medicine12/10/17Team MemberRelationshipSpecialtyStart DateEnd Date Dank Campo MD [address] [place] [facility] [place] [address] PCP - GeneralFamily Medicine12/10/17Team MemberRelationshipSpecialtyStart DateEnd Date Dank Campo MD [address] [place] [facility] [place] [address] PCP - GeneralFamily Medicine12/10/17Team MemberRelationshipSpecialtyStart DateEnd Date Dank Campo MD [address] [place] [facility] [address] PCP - GeneralFamily Medicine03/12/24Team MemberRelationshipSpecialtyStart DateEnd Date Dank Campo MD PCP - GeneralFamily Medicine12/10/17Team MemberRelationshipSpecialtyStart DateEnd Date Dank Campo MD PCP - [facility]12/10/17 Team Status: Inactive Member Role Status Dates Dank Campo MD Primary Care Provider Active S tart: 2024 End: September 16, 2024Gabe Scruggs ProviderActiveStart: 2024 End: September 16, 2024Team MemberRelationshipSpecialtyStart DateEnd Date Dank Campo MD [address] [place] [address] PCP - [facility]08/17/23 Dank Campo MD [address] [place] [address] PCP - [facility]06/18/24Team MemberRelationshipSpecialtyStart DateEnd Date Dank Campo MD PCP - [facility]03/12/24Team MemberRelationshipSpecialtyStart DateEnd Date Dank Campo MD PCP - [facility]03/12/24Team MemberRelationshipSpecialtyStart DateEnd Date Dank Campo MD PCP - [facility]03/12/24 Team Status: Inactive Member Role Status Dates Dank Campo MD Primary Care Provider Active S tart: December 23, 2024 End: December 23, 2024RyGabe Martin ProviderActiveStart: December 23, 2024 End: December 23, 2024Team MemberRelationshipSpecialtyStart DateEnd Date Dank Campo MD [address] [place] [address] PCP - GeneralFamily Medicine08/17/23Team MemberRelationshipSpecialtyStart DateEnd Date Dank Campo MD [address] [place] [address] PCP - GeneralFamily Medicine08/17/23Team MemberRelationshipSpecialtyStart DateEnd Date Dank Campo MD PCP - GeneralFamily Medicine03/12/24Team MemberRelationshipSpecialtyStart DateEnd Date Dank Campo MD PCP - GeneralFamily Medicine08/17/23Team MemberRelationshipSpecialtyStart DateEnd Date Dank Campo MD PCP - GeneralFamily Medicine08/17/23Team MemberRelationshipSpecialtyStart DateEnd Date Dank Campo MD PCP - GeneralFamily Medicine/ Ashli Ross DO [address] [facility] [address] [place] [address] PCP - GeneralFamily Medicine Dank Campo MD PCP - GeneralFamily Medicine08/17/23 Dank Campo MD [address] [place] [address] PCP - Sadia ARMSTRONG/Team MemberRelationshipSpecialtyStart DateEnd Date Dank Campo MD PCP - [facility] Medicine08/17/23 Dank Campo MD [address] [place] [address] PCP - Sadia ARMSTRONGTe MemberRelationshipSpecialtyStart DateEnd Date Dank Campo MD [address] [place] [address] PCP - [facility]08/17/23Team MemberRelationshipSpecialtyStart DateEnd Date Dank Campo MD [address] [place] [address] PCP - [facility]08/17/23 REASON FOR VISIT (unrecogniz ed section and content) ReasonCommentsDiabetesReasonCommentsPainReasonCommentsPainReasonOnset Date CommentsPO PT Eval107/12/2023Tried to contact to schedule PO PT Eval for L shoulder scope, that was on 04/25; requested a call back dolores.Call Back05/12/2024 He contacted and we scheduled PT Eval 05/13 and then continued out 2x/2's a week up to 06/05/24.ReasonCommentsDry EyeFollow-hm1yLwonw like med increaseReason CommentsFoot PainDave Brown 68yo patient presents with Left foot lateral side foot pain. NKI, pain started 2 weeks ago. Pain level at a 2 at this time. Patient has been receiving steroid injections in his back and Blood sugars have been elevated per patient. BS [address] Campo 05/28/2024. Patient relates since starting Gabapentin in February Neuropathy pain has resolved. SS 11.5ReasonOnset DateCommentsAdvice Only02/04/2024Self Pay ShoesSpecialty Diagnoses / ProceduresReferred By ContactReferred To Contact Diagnoses Obstructive sleep apnea syndrome CSA (central sleep apnea) Procedures Polysomnography 4 or more parameters with PAP titration Gregoria Ralph, TRENCHER DRIVER-SPOUT TENDER [address], [address] [place] [address] Referral IDStatusReasonStart DateExpiration DateVisits RequestedVisits [id number]/[id number] ApneaDME: MSC SpecialtyDiagnoses / ProceduresReferred By ContactReferred To ContactPulmonary Medicine / Sleep Medicine Diagnoses Obstructive sleep apnea syndrome Jyoti Roth, TRENCHER DRIVER-SPOUT TENDER [address] [place] [address] [facility] Sleep [facility] [address] [place] [address] [place] [address] Referral IDStatusReasonStart DateExpiration DateVisits RequestedVisits [id number] Review Specialty Services Required /[id number] DateCommentsSleep Lab08/17/2023PAPReason CommentsFollow-upLDSCT: not completedSleep ApneaDME: MSCReasonCommentsDiabetic ShoesEstablished pt presents today wanting to start diabetic shoe process. Pt relates he may have to usequtenza for lower back issues. Pt also inquiring about qutenza for his neuropathy. PCP: Zoie Ross LV 07/31/24, A1C: 9.4, BS: 265 ReasonCommentsShortness of BreathWith raking, picking yard, steps, brisk walking. Also says lower back painCXR 10/27/24Sleep ApneaDME: MSCReasonComments DiabetesNEW REF ONLYSpecialtyDiagnoses / ProceduresReferred By ContactReferred To ContactEndocrinology Diagnoses Type 2 diabetes mellitus with hyperglycemia, with long-term current use of insulin (HCC) Procedures CA OFFICE/OUTPATIENT NEW HIGH MDM 60 MINUTES Dank Campo MD [address] [place] [address] Phone: tel: fax: Deb Matthew MD [address] [place] [address] Phone: tel: fax: Referral IDStatusReasonStart DateExpiration DateVisits RequestedVisits [id number] Review Specialty Services Required [id number] MellitusFollow-upAUG LAB Goals (unrecognized section and content) Goals may [...] BE BASED ON THE PRIMARY CLINICAL RECORDS. [employer] provides no warranty or guarantee of the accuracy or completeness of information in this document.
--- NOTE | 2025-05-28 08:23 | PM.CN ---
Consult Note: HPI Data of Consult Patient: known to practice within the last 3 years Consult date: 05/28/25 Requesting Physician: Sandra Vu NP Primary Care Provider: Dank Bella MD Consult Narrative Reason for consult: low back pain, bilateral foot pain Narrative: 69yom who presents for assessment. notes persistence of pain throughout low back, bilateral knees, and chronic painful diabetic polyneuropathy. knee xrays should severe bilateral knee osteoarthritis. lumbar xr shows extensive facet arthropathy. denies adverse med side effects. pt has further considered spinal cord stimulator for painful diabetic neuropathy and is interested in proceeding, however he has not completed his independent psychiatric evaluation yet. cc:: CC: Sandra Vu NP Review of Systems ROS Status of ROS 10 or more systems reviewed and unremarkable except as noted in history and below Musculoskeletal Reports: back pain and extremity pain PFSH PFSH Medical History Low back pain ?M54.50 - Low back pain, unspecified (ICD-10) Neck pain ?M54.2 - Cervicalgia (ICD-10) Osteoarthritis ?M19.90 - Unspecified osteoarthritis, unspecified site (ICD-10) Anxiety ?F41.9 - Anxiety disorder, unspecified (ICD-10) Heartburn ?R12 - Heartburn (ICD-10) Hiatal hernia ?K44.9 - Diaphragmatic hernia without obstruction or gangrene (ICD-10) Acid reflux ?K21.9 - Gastro-esophageal reflux disease without esophagitis (ICD-10) Prostate cancer ?C61 - Malignant neoplasm of prostate (ICD-10) Enlarged prostate ?N40.0 - Benign prostatic hyperplasia without lower urinary tract symptoms (ICD-10) Diabetes ?E11.9 - Type 2 diabetes mellitus without complications (ICD-10) History of home ventilator ?Z99.11 - Dependence on respirator [ventilator] status (ICD-10) Smoker ?F17.200 - Nicotine dependence, unspecified, uncomplicated (ICD-10) Sleep apnea ?G47.30 - Sleep apnea, unspecified (ICD-10) COPD (chronic obstructive pulmonary disease) ?J44.9 - Chronic obstructive pulmonary disease, unspecified (ICD-10) Heart murmur ?R01.1 - Cardiac murmur, unspecified (ICD-10) Irregular heart beat ?I49.9 - Cardiac arrhythmia, unspecified (ICD-10) High cholesterol ?E78.00 - Pure hypercholesterolemia, unspecified (ICD-10) Hypertension ?I10 - Essential (primary) hypertension (ICD-10) Surgical History S/P foot surgery ?Z98.890 - Other specified postprocedural states (ICD-10) Hx laparoscopic cholecystectomy ?Z90.49 - Acquired absence of other specified parts of digestive tract (ICD-10) S/P shoulder surgery ?Z98.890 - Other specified postprocedural states (ICD-10) S/P left knee arthroscopy ?Z98.890 - Other specified postprocedural states (ICD-10) History of appendectomy ?Z90.49 - Acquired absence of other specified parts of digestive tract (ICD-10) Meds Home Medications and Allergies Home Medications ?Medication ?Instructions ?Recorded ?Confirmed ?Type aspirin 81 mg capsule 81 mg PO DAILY 10/02/23 08/18/24 History celecoxib 200 mg capsule mg 10/02/23 History insulin glargine 100 unit/mL 65 unit subcut DAILY 10/02/23 08/18/24 History subcutaneous solution (Lantus U-100 Insulin) insulin lispro 100 unit/mL subcut 10/02/23 History subcutaneous pen lansoprazole 30 mg capsule,delayed mg 10/02/23 History release lisinopril 10 mg tablet mg 10/02/23 History loperamide 2 mg capsule mg 10/02/23 History magnesium oxide 400 mg (241.3 mg mg 10/02/23 History magnesium) tablet metoprolol succinate 50 mg mg PO 10/02/23 History tablet,extended release 24 hr simvastatin 40 mg tablet mg 10/02/23 History semaglutide 1 mg/dose (4 mg/3 mL) 1 mg subcut QWEEK 11/05/23 08/18/24 History subcutaneous pen injector (Ozempic) gabapentin 300 mg capsule 300 mg PO BID #60 caps 02/28/24 08/18/24 Rx fluoxetine 20 mg capsule 20 mg PO DAILY 04/15/24 08/18/24 History tizanidine 4 mg tablet mg 07/14/24 History gabapentin 300 mg capsule 300 mg PO BID #60 caps 03/11/25 Rx gabapentin 300 mg capsule 300 mg PO BID #60 caps 04/13/25 Rx Allergies Allergy/AdvReac Type Severity Reaction Status Date / Time No Known Drug Allergies Allergy Verified 08/18/24 07:07 Exam Constitutional Documenting provider has reviewed patient's vital signs: yes Common normals: no apparent distress, oriented x3 and alert General appearance: cooperative HENMT Common normals: normocephalic, hearing grossly normal bilaterally and moist oral mucous membranes Head and scalp: normocephalic Eye Common normals: PERRL Pupil: PERRL Neck & C-Spine Common normals: full ROM General: normal visual inspection Chest Common normals: inspection of chest normal Respiratory Common normals: normal respiratory effort, no retractions and no use of accessory muscles Back & Pelvis Lumbar spine/lower back: lumbar ROM normal and straight leg raise negative bilaterally; no pain with ROM, no lumbar spinal tenderness and no paraspinal muscle tenderness Other: negative facet loading strength 5/5 in BLE increased low back pain with standing, walking, yard work. pain improved with sitting and forward flexion Extremity Right lower extremity: ankle joint and foot and digits Left lower extremity: ankle joint and foot and digits Other: full ROM to bilateral feet/ankles. decreased sensation to bilateral soles of feet and with proprioception of digits on bilateral feet. warm to touch without redness edema or sores. Neuro Common normals: oriented x3 Sensorium/orientation: alert Psych Common normals: mental status grossly normal, thought process normal, cooperative, affect normal, speech normal and activity/motor behavior normal Speech: normal speech Thought process: normal thought process Results Additional Findings Additional findings: If on a controlled substance or opioids, I have checked an [place] report on this patient and there are no aberrancies noted in the prescribing history.??If on a controlled substance or opioid a drug screen was completed and reviewed within the last year, and if there has not been a drug screen completed we ordered one today to monitor higher risk, state monitored pain medication use. As part of providing excellent, safe, comprehensive care, the following was completed at our patient's visit: 1. A medication reconciliation and review to ensure accurate knowledge of current/active medications, including asking our patients to inform us about any xqpk-mec-markyol medications or herbal remedies/nutritional supplements/alternative remedies. 2. A review to specifically ensure our patients have had annual screening for screening for depression, screening for tobacco use, and screening for unhealthy alcohol use. For concerning screenings had a discussion with the patient, provided patient education, and recommended follow-up with primary care provider when appropriate. If patient noted with a risk of falling, they received education on strength, gait, and balance training to prevent future risk of falling. Portions of this note may have been carried over from the previous visit and updated as appropriate. Please note this office utilizes paper charting in addition to the electronic medical record. A list of current medications, vitals, and PMH is available there as the clinical staff outside of myself do not have access to [facility] [employer] charting during the clinic day operations. As part of providing quality comprehensive care the current medications, vitals, and PMH were reviewed in the paper chart. 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 pt has failed topical lidocaine, duloxetine, and does not want to be on gabapentin or oral medications ocean transportation intermediary to manage his pain, proceed with scs trial under fluoroscopy once psychiatric evaluation completed. pt will need to complete PAT prior to procedure for IV sedation. continue gabapentin 300mg BID f/u 3 months for medication management f/u after scs trial
== END 2025-05-28 07:53 | disposition home or self-care (01) ==
LOC: PM 07:53
PROVIDERS: PCP Family Medicine; Visit Provider Nurse Practitioner
DX: E13.40 Other specified diabetes mellitus with diabetic neuropathy, unspecified (principal); M47.816 Spondylosis without myelopathy or radiculopathy, lumbar region; M51.360 Other intervertebral disc degeneration, lumbar region with discogenic back pain only; M25.561 Pain in right knee; M25.562 Pain in left knee; G89.29 Other chronic pain; M17.0 Bilateral primary osteoarthritis of knee; M48.062 Spinal stenosis, lumbar region with neurogenic claudication
CPT/HCPCS: G0463